=== PATIENT | male | born 1955 | race Caucasian/White ===

== ENCOUNTER 2018-06-07 04:48 | Inpatient (IN) | payer OTHER, SELFPAY ==
[2018-06-07] VITALS (20 sets, daily range): BP systolic 95–127; BP diastolic 67–89; PULSE 114–139; RESP 18–42; TEMP 36.4–37.7; O2SAT 93–98; BMI 31.0; BMI 29.9
--- NOTE | 2018-06-07 04:54 | EKG12_ITS ---
Test Reason : SEPSIS Blood Pressure : / mmHG Vent. Rate : 135 BPM Atrial Rate : 535 BPM P-R Int : 000 ms QRS Dur : 088 ms QT Int : 328 ms P-R-T Axes : 000 -02 -33 degrees QTc Int : 492 ms Atrial fibrillation with premature ventricular or aberrantly conducted complexes Nonspecific T wave abnormality Abnormal ECG Confirmed by VITA RAMIREZ, GERRY ([id number]), production editor ROSSANA ROB ([id number] on 06/10/2018 1:21:58 PM Referred By: CLIFFORD Confirmed By:GERRY GORMAN MD
--- NOTE | 2018-06-07 05:00 | RAD_ITS ---
STUDY: X-RAY - LEFT TIBIA AND FIBULA REASON FOR EXAM: Male, 63 years old. Lower leg infection and ulcerations. TECHNIQUE: AP and lateral view(s) of the tibia and fibula were obtained. COMPARISON: Prior comparison studies are not available for review at this time. FINDINGS: The distal tibia and fibula are not imaged in their entirety on two views. What is seen of the tibia has a grossly normal appearance with exception of osteopenia. The distal fibula is not imaged in its entirety in 2 views. The visualized fibula is osteopenic. There are multiple lucencies within the soft tissues of the mid and distal leg are presumably representing soft tissue infection ulcerations. There is a nodular area visible within the posterior distal leg measuring approximately 2.6 cm in size. RAD/Tibia & Fibula 2 Views IMPRESSION: 1. Osteopenia. 2. Diffuse soft tissue ulcerations of the mid and distal leg. 3. Nonspecific soft tissue nodule of the distal leg. Electronically Signed: Delilah Brady MD at 7:29 EDT , Service support ,
--- NOTE | 2018-06-07 05:00 | RAD_ITS ---
STUDY: X-RAY - RIGHT TIBIA AND FIBULA REASON FOR EXAM: Male, 63 years old. Right leg infection with soft tissue ulcerations. TECHNIQUE: 4 view(s) of the tibia and fibula were obtained. COMPARISON: None. FINDINGS: Normal visualized tibia. Normal visualized fibula. There is soft tissue swelling and emphysema within the anterior leg and at the ankle. This is presumably related to severe soft tissue infection and ulceration. RAD/Tibia & Fibula 2 Views IMPRESSION: Extensive soft tissue infection of the leg and ankle. Electronically Signed: Delilah Brady MD at 9:01 EDT , Service support ,
[2018-06-07] MEDS: 0.9% Normal Saline 1,000 ML 1000 ML IV (05:01)
--- NOTE | 2018-06-07 05:37 | NURSING ---
CRITICAL LACTIC OF 2.2
[2018-06-07 05:38] LABS: Absolute Lymphocyte Count 0.18 X10^3/ul (0.83-4.51); Absolute Neutrophil Count 10.2 X10^3/uL (2.0-7.7); Basophil# 0.01 X10^3/uL; Basophil% 0.1 % (0-1); Eosinophil# 0.01 X10^3/uL; Eosinophils% 0.1 % (0-5); Hematocrit 27.7 % (40-54); Hemoglobin 8.8 g/dl (13.0-16.5); Lactic Acid 2.2 mmol/L (0.4-2.0); Lymphocyte # 0.18 X10^3/ul (4.0); Lymphocyte % 1.7 % (19-41); Mean Corp Hgb Conc 31.8 g/gl (32-36); Mean Corpuscular Hgb 28.9 pg (27.0-32.0); Mean Corpuscular Volume 91.1 fL (80-94); Mean Platelet Vol. 11.3 fl (6.2-12.0); Monocyte% 1.9 % (0-10); Neutrophil # 10.18 X10^3/uL (2.7-7.7); Neutrophil % 95.9 % (47-70); Platelet Count 196 K/mm3 (150-450); RBC Distribution Width CV 19.7 % (11.6-14.6); RBC Distribution Width SD 65.7 fl (35.1-43.9); Red Blood Count 3.04 M/mm3 (4.6-6.2); White Blood Count 10.6 K/mm3 (4.4-11.0)
[2018-06-07 05:39] LABS: ALB/GLOB Ratio 0.4 RATIO (0.9-2.4); AST(SGOT) 23 U/L (15-37); Alanine Aminotransfer ALT/SGPT 17 U/L (16-61); Albumin, Serum 1.7 g/dL (3.2-5.0); Alkaline Phosphatase 285 U/L (45-117); Anion Gap 9 (5-15); BUN 31 mg/dL (7-18); BUN/Creat Ratio 26.7 RATIO (10-20); Calcium,Total 8.2 mg/dL (8.5-10.1); Chloride 102 mmol/L (98-107); Creatinine, Serum 1.16 mg/dL (0.70-1.30); EST Glomerular Filtration Rate 67 mL/min (>60); Est Glom Filt Rate - Afr Amer 81 mL/min (>60); Globulin 4.2 g/dL (2.2-4.2); Glucose 169 mg/dL (74-106); Potassium 4.3 mmol/L (3.5-5.1); Protein, Total 5.9 g/dL (6.4-8.2); Sodium Level 138 mmol/L (136-145)
[2018-06-07 05:48] LABS: Bacteria 0 SEEN /hpf (None Seen); Mucous, Urine 0 SEEN /hpf (<or=2+); Red Blood Cells-Urine 0 SEEN /hpf (0-5); Squamous Epithelial Cells - UA 0 SEEN /hpf (0-5); White Blood Cells 0 SEEN /hpf (0-5)
[2018-06-07 05:49] LABS: Color, Urine Amber (Yellow); Glucose, Dipstick Normal (Normal); Ketone-Dipstick Negative (Negative); Leukocyte Esterase-Dipstick 25 /ul (Negative); Nitrite-Dipstick Negative (Negative); Occult Blood-Urine Negative /ul (Negative); Protein-Dipstick 100 mg/dl (Negative); Specific Gravity, Urine 1.015 (1.002-1.030); Urine Clarity Clear (Clear); Urine Urobilinogen 12 mg/dl (Normal)
--- NOTE | 2018-06-07 05:50 | ED.RN ---
patient had a period of V tach on the monitor. Patient had no symptoms. Dr. De Souza made aware. no new orders at this time
[2018-06-07 05:56] LABS: POSITIVE COUNT NO; POSITIVE DIFFERENTIAL YES
[2018-06-07 05:57] LABS: Differential Indicated SCAN CRITERIA MET; POSITIVE MORPHOLOGY YES
[2018-06-07 06:00] LABS: Urine Bilirubin Dipstick 1 mg/dL (Negative)
[2018-06-07 06:04] LABS: International Normalized Ratio 3.4; Prothrombin Time (Protime)PT. 34.8 SECONDS (11.7-14.9)
--- NOTE | 2018-06-07 06:10 | RAD_ITS ---
STUDY: X-RAY CHEST REASON FOR EXAM: Male, 63 years old. Bilateral leg infection. TECHNIQUE: Single AP portable view of the chest. COMPARISON: None. FINDINGS: Cardiac monitoring leads are present. The lungs are expanded. There is no evidence for airspace disease. There is no demonstrated pleural abnormality. There is moderate cardiac enlargement. Normal mediastinum and clifford. Normal visualized pulmonary arteries. There is atherosclerotic calcification of the aortic arch with tortuosity. Normal visualized thoracic spine. There are degenerative changes of both shoulders. There is no demonstrated abnormality of the visualized soft tissue structures of the upper abdomen. RAD/Chest 1 View (Portable) IMPRESSION: Moderate cardiomegaly. Electronically Signed: Delilah Brady MD at 8:12 EDT , Service support ,
--- NOTE | 2018-06-07 06:10 | RAD_ITS ---
STUDY: X-RAY - RIGHT FOOT CLINICAL: Male, 63 years old. Right-sided foot soft tissue infection. TECHNIQUE: 3 view(s) of the foot. COMPARISON: Prior comparison studies are not available for review at this time. FINDINGS: There is a small plantar calcaneal spur. Normal visualized subtalar, talonavicular, calcaneocuboid, tarsal and tarsometatarsal articulations. Normal metatarsi. There is degenerative arthrosis of the metatarsophalangeal joint of the hallux . Normal tibial and fibular sesamoid bones. Normal interphalangeal joint of the great toe. Normal phalanges of the great toe. Normal second through fifth metatarsophalangeal joints. Normal interphalangeal joints and phalanges of the lesser toes. There is moderate soft tissue swelling of the foot and ankle. There is a lucency plantar to the metatarsophalangeal joint region suggesting ulceration. There may also be ulcerations posterior to the distal leg. There is no demonstrated fracture. RAD/Foot min 3 Views IMPRESSION: 1. Moderately severe soft tissue swelling. 2. Degenerative changes of the first metatarsal phalangeal joint. 3. Apparent ulcerations of the plantar foot and posterior leg. 4. Calcaneal spur. Electronically Signed: Delilah Brady MD at 7:32 EDT , Service support ,
[2018-06-07 06:14] LABS: Anisocytosis 2+; Differential Comment SCAN; Hypochromasia 1+; Microcytosis 1+; Ovalocyte 1+; Polychromasia 1+
--- NOTE | 2018-06-07 06:26 | ED.DCSUM_ITS ---
- ER Visit Summary Date of Service: 06/07/18 Chief Complaint: [Fever] History of Present Illness: The patient is a 63 M [presents to the emergency department with complaint of a fever that started 2 days ago from with the patient states however the states that it is actually started 6 days ago. Patient was noted to have what appear to be an infection of his right foot but the noticed 5 or 6 days ago. Patient has had open wounds to both lower extremities for months. Patient denies any cough or dysuria. states the patient really has not ambulated much in the last 2 weeks however yesterday he was able to shuffle a little bit transfer. Patient is on Coumadin for history of A. fib and history of prior stroke. Patient has a history of diabetes and hypertension.] Physical Examination: [HEENT-PERRLA, EOMI. Cranial nerves II through XII grossly intact. TMs clear. Mucous membranes moist. No adenopathy. Cardiovascular- irregularly irregular with 2 out of 6 systolic ejection murmur noted. Patient is tachycardic Lungs-clear to auscultation, chest wall stable without crepitus or subcu emphysema Abdomen-normoactive bowel sounds, soft, nontender, no rebound or rigidity, no peritoneal signs. Extremities-intact ?4, normal range of motion, normal pulses. Patient has soft tissue swelling and cellulitis noted to the right foot with multiple open wounds to the bottom of the foot. There is foul odor emanating from the wounds. Patient has significant ulcerations to both lower extremities below the knee. Test Results: [EKG obtained on arrival showed atrial fibrillation with a ventricular rate of 135 bpm. CBC with differential showed a white count 10.6, hemoglobin 8.8, hematocrit 27.7, platelets 196. Chemistries unremarkable. BUN was 31 creatinine 1.16. LFTs unremarkable. Troponin was less than 0.015. Lactate was minimally elevated 2.2. X-rays of bilateral tib fibs and right foot were obtained which showed soft tissue swelling of the foot however I do not appreciate any obvious osteomyelitis at this time and official report from radiology pending] Emergency Department Course and Treatment: [Patient was started on vancomycin as well as Zosyn IV. Patient was given a liter normal same fluid bolus.] Treatment Plan: [Admit] Disposition: [Admit] Impression: [Diabetic foot infection and cellulitis Sepsis syndrome Anemia Coumadin coagulopathy Atrial fibrillation with uncontrolled ventricular response] This note was generated with [employer] dictation software. It may contain incorrect words, spelling, and punctuation that were not noted in review of the chart prior to signing ED Disposition - Plan for ED Patient: Chief Complaint: Fever Referrals: Hong Sparks MD [Primary Care Provider] -
--- NOTE | 2018-06-07 06:42 | NURSING ---
NO LW OR POA
--- NOTE | 2018-06-07 06:42 | NURSING ---
128 ACUTE COPD EXAC AGYEPONG
--- NOTE | 2018-06-07 06:56 | NURSING ---
DR MIGUEL DALE
--- NOTE | 2018-06-07 07:03 | NURSING ---
PCU SEPSIS, AF WITH RVR, NON HEALING INFECTED WOUNDS SEMENTI
[2018-06-07 08:56] LABS: Bedside Glucose 136 mg/dL (70-110)
[2018-06-07 09:12] LABS: Reflex Lactate? Y
[2018-06-07 10:04] LABS: Lactic Acid 1.9 mmol/L (0.4-2.0)
[2018-06-07 11:30] LABS: Bedside Glucose 154 mg/dL (70-110)
--- NOTE | 2018-06-07 13:13 | VDLE_ITS ---
Reason For Study: swelling RIGHT LEFT GSV is normal. GSV is normal. CFV is compressible, spontaneous, competent CFV is compressible, spontaneous, competent, and demonstrates pulsatile venous flow. and demonstrates pulsatile venous flow. FV is compressible, spontaneous, competent FV is compressible, spontaneous, competent and demonstrates pulsatile venous flow. and demonstrates pulsatile venous flow. POP V is compressible with bright POP V is compressible, spontaneous, intraluminal echoes consistent with chronic competent and demonstrates pulsatile venous DVT. Pulsatile flow noted with a normal flow. response to augmentation. T/P Trunk is compressible. T/P Trunk is compressible with bright PTV is compressible. intraluminal echoes consistent with chronic LT PerV is compressible. DVT. PTV is compressible. RT PerV is compressible. Procedure Exam performed portable in patient room. The exam was diagnostic. Limited views of calf veins due to wounds. A preliminary report was called and/or faxed to Dr. Barnett. Interpretation Summary Deep veins of the lower extremities are bilaterally patent and compressible segmentally. There is no evidence of deep vein thrombosis on either side. Chronic venous changes are noted in the right popliteal vein and tibio-peroneal trunk. Valvular competence appears intact within the proximal deep venous systems bilaterally. The greater saphenous veins appear bilaterally patent and compressible segmentally. Pulsatile flow is noted within the deep venous system bilaterally, which may be indicative of elevated central venous pressure (i.e. congestive heart failure, tricuspid valve insufficiency, etc.). Clinical correlation is advised. Ordering Physician: Kallie Barnett Performed By: Diego Whalen RVT
--- NOTE | 2018-06-07 13:17 | ECHOD_ITS ---
Reason For Study: Murmur Procedure This was a 2D Doppler, Color Flow transthoracic echocardiogram. Exam performed portable in patient room. Left Ventricle Mildly dilated left ventricle. The estimated ejection fraction is 50 %. There is mild global hypokinesis of the left ventricle. Right Ventricle Moderately dilated right ventricle. Mild global right ventricular systolic dysfunction. Atria The left atrium is severely enlarged. The right atrium is severely enlarged. Normal atrial septum. Mitral Valve Mild focal mitral valve thickening. Moderately severe (3+) mitral valve insufficiency. Tricuspid Valve Normal tricuspid valve. Moderate (2+) tricuspid valve insufficiency. Right ventricular systolic pressure estimated to be 67 mmHg. Severe pulmonary hypertension. Aortic Valve Trisinus/trileaflet aortic valve. Mild diffuse aortic valve thickening. There is no aortic stenosis. Pulmonic Valve Normal pulmonic valve. Great Vessels Normal aortic root. Normal arch. The inferior vena cava is dilated. No collapse of the inferior vena cava. Pericardium/Pleural No pericardial effusion. MMode/2D Measurements & Calculations LVIDd: 5.3 cm IVSd: 1.3 cm Ao root diam: 3.8 cm LVIDs: 3.9 cm LVPWd: 1.3 cm RVDd: 5.0 cm FS: 26.0 % LAV(MOD-bp): 149.5 ml EDV(MOD-sp4): 87.2 ml SV(MOD-sp4): 46.8 ml LAV(MOD-bp) Indexed: 64.5 ml/m2 ESV(MOD-sp4): 40.4 ml LAV(MOD-sp2): 144.3 ml EF(MOD-sp4): 53.6 % LAV(MOD-sp4): 155.7 ml LA A4 area: 41.1 cm2 RA A4 area: 45.4 cm2 Doppler Measurements & Calculations MV E max dayanna: 98.6 cm/sec Ao V2 max: 120.3 cm/sec LV V1 max: 84.3 cm/sec Ao max P.8 mmHg LV V1 max P.8 mmHg Ao V2 mean: 87.3 cm/sec Ao mean P.4 mmHg Ao V2 VTI: 17.7 cm PA V2 max: 87.3 cm/sec TR max dayanna: 370.2 cm/sec TR max P.8 mmHg Interpretation Summary The estimated ejection fraction is 50 %. Mildly dilated left ventricle. There is mild global hypokinesis of the left ventricle. Moderately dilated right ventricle. Mild global right ventricular systolic dysfunction. The left atrium is severely enlarged. The right atrium is severely enlarged. Moderately severe (3+) mitral valve insufficiency. Moderate (2+) tricuspid valve insufficiency. Right ventricular systolic pressure estimated to be 67 mmHg. Severe pulmonary hypertension. The inferior vena cava is dilated Compared to echo report dated 05/08/2013, LV function is about the same and MR has gone from mild/moderate to moderate/severe. RVSP has incareased from 51 to 67 mm Hg. Pt appears to be in atrial fibrillation. Ordering Physician: Kallie Barnett Referring Physician: Hong Sparks Performed By: Sherri Faulkner, GIA, RVT
--- NOTE | 2018-06-07 13:24 | EKG12_ITS ---
Test Reason : MURMUR Blood Pressure : / mmHG Vent. Rate : 114 BPM Atrial Rate : 113 BPM P-R Int : 000 ms QRS Dur : 092 ms QT Int : 352 ms P-R-T Axes : 000 016 009 degrees QTc Int : 485 ms Atrial fibrillation Abnormal ECG When compared with ECG of 07-JUN-2018 05:04, MANUAL COMPARISON REQUIRED, DATA IS UNCONFIRMED Confirmed by VITA RAMIREZ, GERRY ([id number]), editorial director ROSSANA ROB ([id number]) on 06/10/2018 1:53:56 PM Referred By: MIGUEL Confirmed By:GERRY GORMAN MD
--- NOTE | 2018-06-07 13:39 | PCM.HP.STD ---
Problem List (1) Gangrene Status: Acute (2) Severe sepsis Status: Acute (3) Osteomyelitis Status: Suspected (4) PVD (peripheral vascular disease) Status: Suspected (5) Anemia Status: Chronic (6) Chronic anticoagulation Status: Chronic (7) Murmur, cardiac Status: Chronic (8) Cardiomyopathy Status: Chronic Comment: 47 % EF in 2013 (9) Pulmonary HTN Status: Chronic Comment: PA systolic 51 in 2013 (10) Tobacco dependence due to cigarettes Status: Chronic (11) Diabetic wet gangrene of the foot Status: Acute (12) HLD (hyperlipidemia) Status: Chronic (13) CVA, old, hemiparesis Status: Chronic Comment: left side weakness....stroke in 2013 (14) Benign essential HTN Status: Chronic (15) Chronic low back pain Status: Chronic (16) DM2 (diabetes mellitus, type 2) Status: Chronic (17) Depression Status: Chronic (18) Tobacco user Status: Chronic (19) BPH (benign prostatic hyperplasia) Status: Suspected (20) Urinary incontinence Status: Chronic History of Present Illness Date of Admission: 06/07/18 Chief Complaint: fould smelling ulcerations of both LE's with fever and shaking chills The patient is a 63 year old M with a past medical history of hypertension, diabetes mellitus type 2, hyperlipidemia, ischemic CVA in 2013, paroxysmal atrial fibrillation, tobacco dependence due to cigarettes, depression, claudication and chronic nonhealing wounds of both lower extremities who presented to the ED at [facility] on 06/07/18 c/o fever and shaking chills. He has non-healing ulcerations on both LE's with necrosis that have been present for month and extend from the knees to the toes on both feet. He has not been seen in the wound care center and is having his wounds dressed once a day at home by his using wound wash and triple antibiotic ointment. There is a very foul smell to the wounds and this has been present for at least a few weeks and maybe longer. He has never had PVR's. He is unable to walk and in fact the ankle joints are frozen. He also has openings in the skin on the buttocks. His temperature in the emergency room was 99.8?F but he had received Tylenol. The pulse was 135 and irregular, blood pressure was 107/76, respiratory rate was 25 is 93% saturated on room air. White blood cell count was 10.6 with 96% neutrophils. Hemoglobin is 8.8 with an MCV of 91.1 and a markedly increased RDW at 19.7 with anisocytosis, microcytosis and hypochromasia. Platelets were within normal limits. INR was therapeutic at 3.4. Electrolytes were normal and the BUN was 31 with a creatinine of 1.16. This is actually good for him. Lactic acid was 2.2 and the recheck was 1.9. Total bilirubin is increased at 1.5 and his alkaline phosphatase is increased at 285. Troponin was within normal limits. Albumin is decreased at 1.7. UA had 0 WBCs. Plain x-rays of bilateral distal lower extremities show extensive soft tissue infection of the legs and ankle with osteopenia. Chest x-ray showed cardiomegaly but it was an AP projection. There are no infiltrates, pleural effusions or pulmonary vascular congestion. An x-ray of the right foot showed moderately severe soft tissue swelling with apparent ulcerations of the plantar foot and posterior leg. There was a calcaneal spur. Blood cultures and a wound culture were sent from the emergency room. He was given Zosyn and Vancomycin. EKG shows AF with RVR and NS ST and T wave changes. He had a run of VT in the ED and also had a run on PCU.....he denies CP, SOB, palpitations, lightheadedness. Has not had any syncopal episodes. He is being admitted to PCU. Past Medical History Past Medical History (Chronic Problems): Chronic Problems 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) Ulcer of right foot with necrosis of muscle (Chronic) Osteomyelitis (Chronic) Right foot infection (Chronic) Type 2 diabetes mellitus with diabetic polyneuropathy (Chronic) Localized edema (Chronic) Malnutrition (Chronic) Tobacco user (Chronic) HLD (hyperlipidemia) (Chronic) DM2 (diabetes mellitus, type 2) (Chronic) Depression (Chronic) Chronic low back pain (Chronic) Benign essential HTN (Chronic) Allergies No Known Allergies Allergy (Verified 06/07/18 04:55) Home Medications: Ambulatory Orders Medication Instructions Recorded Amlodipine Besylate [Norvasc] 5 mg PO DAILY 06/07/18 Aspirin [Adult Aspirin] 81 mg PO DAILY 06/07/18 Atenolol 50 mg PO BID 06/07/18 Cholecalciferol (VIT D3) [Vitamin 1,000 unit PO DAILY 06/07/18 D] Fluocinonide [Fluocinonide] 1 applicatio TOPICAL BID 06/07/18 Furosemide [Lasix] 40 mg PO DAILY 06/07/18 Glimepiride [Amaryl] 4 mg PO DAILY 06/07/18 Lisinopril [Zestril] 40 mg PO DAILY 06/07/18 Metformin HCl 500 mg PO BIDCM 06/07/18 [place]-3 Fatty Acids/Fish Oil [Fish 1 each PO BID 06/07/18 Oil 1,000 mg Capsule] Paroxetine [Paxil] 40 mg PO DAILY 06/07/18 Simvastatin 20 mg PO QHS 06/07/18 Warfarin [Coumadin ([facility])] 5 mg PO SUTUWEFRSA 06/07/18 Warfarin [Coumadin ([facility])] 7.5 mg PO MOTH 06/07/18 Surgical History: tonsillectomy Psychiatric History: Depression Lives: Spouse/ Significant Other Smoking Status: Heavy Smoker (>10/day) - 1 pack per day Tobacco Use: Cigarettes Alcohol: Heavy - He admits to having 1 beer daily Drugs: None - *Family History Paternal History Items: Heart Disease - His father had atrial fibrillation and an AICD/pacemaker Maternal History Items: Diabetes - His mother had severe diabetes mellitus and had amputations of her lower extremities. Review of Systems Constitutional: Reports: Chills, Fever, - - unable to walk. Denies: Anorexia Eyes: Denies: Vision Change HEENT: Denies: Difficulty Hearing, Difficulty Swallowing, Head Aches, Sore Throat Cardiovascular: Reports: Claudication, Edema. Denies: Chest Pain, Light Headedness, Orthopnea, Palpitations, Syncope Respiratory: Denies: Cough, Shortness of Breath Gastrointestinal: Denies: Abdominal Pain, Constipation, Diarrhea, Nausea, Vomiting Genitourinary: Reports: Hesitancy, Incontinence - occasional, Nocturia, Urgency. Denies: Dysuria, Hematuria Musculoskeletal: Reports: Back Pain, - - both LE's Skin: Reports: Wounds. Denies: Jaundice, Rash Neurological: Reports: Focal weakness - LUE > LLE, - - unable to ambulate for some time now......ankle joints are frozen. Denies: Change in Speech, Slurred speech, Confusion, Seizures Psychiatric: Reports: Depression Endocrine: Denies: Change in Body Habitus Hematologic/ Lymphatic: Reports: Easy Bruising VTE Information - Inpt Only VTE Present on Admission: No VTE Mechan Device Prophylaxis: None VTE Pharm Prophylaxis ordered?: No Reason prophylaxis not ordered:: Treatment Not Indicated - He has severe PVD with claudication and multiple necrotic wounds on both LE's He is on coumadin Patient Problems: Active and Suspected Problems Gangrene (Acute) Severe sepsis (Acute) Osteomyelitis (Suspected) PVD (peripheral vascular disease) (Suspected) 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) BPH (benign prostatic hyperplasia) (Suspected) - Physical Exam General: Alert, Oriented x3, Cooperative, No apparent distress, Well developed, Well nourished HEENT: Atraumatic, PERRLA, EOMI, Normocephalic Oral: No Gingival or Mucosal Lesions/ Ulcerations - tongue is coated white white brown furry, Dry Mucosa Neck: Supple, No JVD, Negative Carotid Bruits, No Nuchal Rigidity, Trachea Midline Lungs: Rhonchi - R base and R lateral chest. No rales and no wheezes Cardiovascular: Normal S1, Normal S2, Irregular Rate, Murmur - Systolic murmur at the left axillary area, No Gallop, Tachycardic Abdomen: Bowel Sounds Present, Soft, Non Tender, Non-Distended, - - penis is uncircumcised and there are no lesions of the glans no tinea cruris present Extremities: No cyanosis, Diminished Peripheral Pulses - no pulses could be palpated from the groin to the toes, Edema Skin: Ulcer/ Wound - extensive on Both LE's from the knees to the toes with foul smelling DC from the wounds on the R foot and necrotic tissue L posterior calf and several other places. He also has several stage 2 decubitus ulcers on the buttocks Neurological: Cranial nerves II-XII grossly intact, - - mild-moderate weakness of the LUE and mild decreased strength in the LLE Psych/Mental Status: Appropriate, Anxious Vital Signs Temp Pulse Resp BP Pulse Ox 98.3 F 125 H 18 98/67 96 06/07/18 08:09 06/07/18 11:00 06/07/18 08:09 06/07/18 08:09 06/07/18 08:09 Oxygen Flow Rate (L/min) 2 Oxygen Delivery Method Room Air Weight: 233 lb 7.512 oz Body Mass Index (BMI) 29.9 Intake and Output for Last 24 Hours 06/05/18 06/06/18 06/07/18 23:59 23:59 23:59 Intake Total 973 / 973 Output Total 200 / 200 Balance 773 / 773 Laboratory Tests Past 24 Hrs 06/07/18 09:30 Lactic Acid 1.9 POC Glucose 06/07/18 06/07/18 11:23 08:25 POC Glucose 154 H 136 H Assessment/Plan All Active Problems Gangrene (Acute) Severe sepsis (Acute) 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 Severe sepsis with cellulitis, abscess, gangrene and suspected osteomyelitis of the R foot - suspect an anaerobe 2. extensive wounds of both LE's with necrotic tissue posterior left distal LE. 3. Neuropathy 4. DM II 5. Suspect severe peripheral vascular disease 6. Anemia with increased RDW and normocytic indices possibly due to -chronic inflammation/infection 7. Atrial fibrillation with rapid ventricular response 8. Chronic anticoagulation with warfarin 9. Cardiac murmur in the left axillary area-suspect mitral regurgitation 10. Mild cardiomyopathy with a 47% ejection fraction in 2013 11. Moderate pulmonary hypertension with a PA systolic of 51 in 2013 12. Tobacco dependence 13. Hyperlipidemia 14. Remote CVA with mild left hemiparesis 15. Hypertension 16. Chronic low back pain 17. Depression 18. BPH 19. frozen joints BL ankle 20. Stage II decubitus ulcers on both buttocks Consult Dr. Escobar, Dr. Gruber and Dr. Ponce Increase Cardizem and start amiodarone 4 heart rate control. Would like to avoid increasing beta blockers due to suspected severe peripheral vascular disease All wounds were cultured and blood cultures have been sent Start vancomycin and Zosyn Check iron studies, B12, folate and reticulocyte count Smoking cessation counseling given-NicoDerm patch 21 mg daily Obtain PVRs both lower extremities MRI of both lower extremities from the knees to the toes Continue his home medications Consult wound care nurse for management of his wounds Obtain an echocardiogram I did apprise him of the possibility he may need amputations. Recently a nuclear pharmacologic stress test prior to any major surgeries Recheck lab in a.m. Code Visit Inpatient E&M: 43198 Init Hosp L3
[2018-06-07 13:59] LABS: Immature Platelet Fraction 6.2 % (1.0-7.9); RET-HE 24.7 pg (30-35)
[2018-06-07 14:05] LABS: Erythrocyte Sedimentation Rate 51 mm/hr (0-20)
[2018-06-07 14:11] LABS: Ferritin 295 ng/mL (26-388); Iron 18 ug/dL (65-175); Iron Binding Capacity,Total 169 ug/dL (250-450); Magnesium 1.4 mg/dL (1.6-2.6); PERCENT IRON SATURATION 10.7 % (15.0-55.0)
[2018-06-07] MEDS: 0.9% Normal Saline 1,000 ML 60 ML IV (14:11)
[2018-06-07 14:24] LABS: Hemoglobin A1c 6.7 % (4.2-6.3)
--- NOTE | 2018-06-07 14:26 | PCM.RX.CS ---
Consult Pharmacy has been consulted to manage selected antiobiotic: Vancomycin Type of Consult: New start Suspected Infection: Sepsis, Skin/Soft tissue Prior Doses of Antibiotics Received/Current Regimen: VANCOMYCIN 2000MG IV X1 IN ED 06/07 @0533 Labs: Sodium 138 mmol/L (136-145) 06/07/18 05:00 Potassium 4.3 mmol/L (3.5-5.1) 06/07/18 05:00 Chloride 102 mmol/L (98-107) 06/07/18 05:00 Carbon Dioxide 27.0 mmol/L (21.0-32.0) 06/07/18 05:00 Anion Gap 9 (5-15) 06/07/18 05:00 BUN 31 mg/dL (7-18) H 06/07/18 05:00 Creatinine 1.16 mg/dL (0.70-1.30) 06/07/18 05:00 Est GFR (MDRD) Af Amer 81 mL/min (>60) 06/07/18 05:00 Est GFR (MDRD) Non-Af 67 mL/min (>60) 06/07/18 05:00 BUN/Creatinine Ratio 26.7 RATIO (10-20) H 06/07/18 05:00 Glucose 169 mg/dL (74-106) H 06/07/18 05:00 Weight used for dosin kg Estimated Creatinine Clearance: 75ML/MIN Goal Trough: 15-20 mcg/mL Pharmacy Plan for Drug Dosing: PLAN/RECOMMENDATIONS 1. Vancomycin 1500mg IV Q12hrs to start 06/07 @1700 2. Trough scheduled for 06/08 @1630, prior to 4th total dose of vancomycin 3. Pharmacy Service will continue to monitor and adjust dosing as required.
[2018-06-07 14:44] LABS: Phosphorus 2.5 mg/dL (2.5-4.9); Thyroid Stim Hormone (TSH) 1.95 uIU/mL (0.358-3.74)
--- NOTE | 2018-06-07 15:28 | NURSING ---
wound photo: right foot
--- NOTE | 2018-06-07 15:28 | NURSING ---
wound photo: right anterior lower leg
--- NOTE | 2018-06-07 15:29 | NURSING ---
wound photo: left anterior lower leg
--- NOTE | 2018-06-07 15:30 | NURSING ---
wound photo: left posterior lower leg
--- NOTE | 2018-06-07 15:30 | NURSING ---
wound photo: right medial lower leg
--- NOTE | 2018-06-07 15:30 | NURSING ---
wound photo: bilateral buttocks
--- NOTE | 2018-06-07 15:31 | NURSING ---
wound photo: right knee
--- NOTE | 2018-06-07 16:57 | HP.PCM_ITS ---
Problem List (1) Ulcer of right lower extremity with fat layer exposed Status: Chronic (2) Ulcer of left lower extremity with fat layer exposed Status: Chronic (3) 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 (4) Ulcer of right foot with necrosis of muscle Status: Chronic (5) Osteomyelitis Status: Chronic (6) Right foot infection Status: Chronic (7) Type 2 diabetes mellitus with diabetic polyneuropathy Status: Chronic (8) Localized edema Status: Chronic (9) Chronic anticoagulation Status: Chronic (10) PVD (peripheral vascular disease) Status: Suspected (11) Tobacco user Status: Chronic (12) Malnutrition Status: Chronic History of Present Illness Date of Admission: 06/07/18 Chief Complaint: Leg and foot ulcers and right foot infection The patient is a 63 year old male was seen bedside for bilateral leg ulcers with right foot infection. The wound onset was 4 months ago with progressive deterioration of right foot the past several weeks. He developed an odor and worsening illness status this past week. He has been treating these wounds at home without seeing a physician or specialist. They cover the wounds with gauze and neosporin. .His pain is moderate. He had several studies performed today. Past Medical History Past Medical History (Chronic Problems): Chronic Problems Anemia (Chronic) Chronic anticoagulation (Chronic) Murmur, cardiac (Chronic) Cardiomyopathy (Chronic) 47 % EF in 2013 Pulmonary HTN (Chronic) PA systolic 51 in 2012 Tobacco dependence due to cigarettes (Chronic) CVA, old, hemiparesis (Chronic) left side weakness....stroke in 2013 Urinary incontinence (Chronic) Ulcer of right lower extremity with fat layer exposed (Chronic) Ulcer of left lower extremity with fat layer exposed (Chronic) 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) Ulcer of right foot with necrosis of muscle (Chronic) Osteomyelitis (Chronic) Right foot infection (Chronic) Type 2 diabetes mellitus with diabetic polyneuropathy (Chronic) Localized edema (Chronic) Malnutrition (Chronic) Tobacco user (Chronic) HLD (hyperlipidemia) (Chronic) DM2 (diabetes mellitus, type 2) (Chronic) Depression (Chronic) Chronic low back pain (Chronic) Benign essential HTN (Chronic) Allergies No Known Allergies Allergy (Verified 06/07/18 04:55) Home Medications: Ambulatory Orders Medication Instructions Recorded Amlodipine Besylate [Norvasc] 5 mg PO DAILY 06/07/18 Aspirin [Adult Aspirin] 81 mg PO DAILY 06/07/18 Atenolol 50 mg PO BID 06/07/18 Cholecalciferol (VIT D3) [Vitamin 1,000 unit PO DAILY 06/07/18 D] Fluocinonide [Fluocinonide] 1 applicatio TOPICAL BID 06/07/18 Furosemide [Lasix] 40 mg PO DAILY 06/07/18 Glimepiride [Amaryl] 4 mg PO DAILY 06/07/18 Lisinopril [Zestril] 40 mg PO DAILY 06/07/18 Metformin HCl 500 mg PO BIDCM 06/07/18 Himrod-3 Fatty Acids/Fish Oil [Fish 1 each PO BID 06/07/18 Oil 1,000 mg Capsule] Paroxetine [Paxil] 40 mg PO DAILY 06/07/18 Simvastatin 20 mg PO QHS 06/07/18 Warfarin [Coumadin ([facility])] 5 mg PO SUTUWEFRSA 06/07/18 Warfarin [Coumadin ([facility])] 7.5 mg PO MOTH 06/07/18 Surgical History: tonsillectomy Psychiatric History: Depression Lives: Spouse/ Significant Other Smoking Status: Heavy Smoker (>10/day) - 1 pack per day Tobacco Use: Cigarettes Alcohol: Heavy - He admits to having 1 beer daily Drugs: None - *Family History Paternal History Items: Heart Disease - His father had atrial fibrillation and an AICD/ pacemaker Maternal History Items: Diabetes - His mother had severe diabetes mellitus and had amputations of her lower extremities. Review of Systems Constitutional: Reports: Fever, Weakness, Fatigue. Denies: Chills HEENT: Denies: Difficulty Hearing Cardiovascular: Denies: Chest Pain, Claudication Gastrointestinal: Denies: Diarrhea, Nausea, Vomiting Musculoskeletal: Reports: Foot Pain - right. Denies: Leg Pain Skin: Reports: Skin Changes, Wounds Neurological: Reports: Balance problems, Numbness, Tingling Psychiatric: Reports: Depression VTE Information - Inpt Only VTE Present on Admission: No VTE Mechan Device Prophylaxis: None VTE Pharm Prophylaxis ordered?: No Reason prophylaxis not ordered:: Treatment Not Indicated Patient Problems: Active and Suspected Problems Gangrene (Acute) Severe sepsis (Acute) Osteomyelitis (Suspected) PVD (peripheral vascular disease) (Suspected) 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) BPH (benign prostatic hyperplasia) (Suspected) - Physical Exam General: Alert, Oriented x3, Cooperative HEENT: Atraumatic Extremities: No cyanosis, Capillary Refill Less than 3 Seconds, No Calf Tenderness - Negative Errol and Lobato sign bilateral, Diminished Peripheral Pulses - Nonpalpable PT and DP pulses, Edema, Tenderness - Right foot wound manipulation plantar, - - Compartments of bilateral lower extremities remain soft Skin: Ulcer/ Wound - There is large subcutaneously exposed wounds to the left leg with posterior exposed Achilles just above the heel and mid leg section that is devitalized and necrotic. There is no purulence or odor on expression to the left lower extremity. The right lower extremity leg also has subcutaneous tissue exposed with granular and fibrous base with peripheral skin slough noted these are encompassing the entire lateral and anterior leg. His plantar right foot wound is located to the second toe with exposed flexor tendon and positive probe to bone and joint. There is also communicating subsecond metatarsal head ulcer with purulence on expression and devitalized necrotic plug noted. There is an odor and peripheral edema and erythema noted. , - - There is also a noninfected ulcer to the anterior right patellar region Musculoskeletal: No Tenderness to Palpation of Joints or Extremities, Muscle Wasting, - - Dorsal contraction of lesser toes with prominent metatarsal heads. Active range of motion ankles bilateral Neurological: - - Lack of epicritic sensation light touch bilateral lower extremities consistent with neuropathy Psych/Mental Status: Normal Affect, Appropriate Vital Signs Temp Pulse Resp BP Pulse Ox 98.7 F 120 H 28 H 105/67 94 06/07/18 14:36 06/07/18 14:45 06/07/18 14:45 06/07/18 14:45 06/07/18 14:45 Oxygen Flow Rate (L/min) 2 Oxygen Delivery Method Room Air Weight: 105.9 kg Body Mass Index (BMI) 29.9 Intake and Output for Last 24 Hours 06/05/18 06/06/18 06/07/18 23:59 23:59 23:59 Intake Total 973 / 973 Output Total 200 / 200 Balance 773 / 773 Laboratory Tests Past 24 Hrs 06/07/18 06/07/18 09:30 15:10 Lactic Acid 1.9 Vitamin B12 Pending POC Glucose 06/07/18 06/07/18 11:23 08:25 POC Glucose 154 H 136 H Assessment/Plan All Active Problems Gangrene (Acute) Severe sepsis (Acute) 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) Bilateral large leg wounds with subcutaneous tissue exposed right and subcutaneous and Achilles tendon exposed left Right foot ulcer with suspected septic joint and osteomyelitis Right lower extremity cellulitis Diabetes with neuropathy Malnutrition Peripheral vascular disease Lower extremity edema Delayed healing Multiple other comorbidities and risk for limb loss The case was discussed with the patient and his . I performed a physical exam and reviewed his diagnostic data. His foot x-rays did not demonstrate soft tissue emphysema, gross destruction of the bones or foreign body. There was edema and ulcer visualization noted. His foot deformity including hammertoe were also apparent. MRIs were ordered to help delineate extent of bone or joint involvement on the right foot. This is clinically suspected. I recommend an infectious disease consultation. He will continue on IV antibiotics overnight; I recommend broad-spectrum coverage until the culture results come back a wound culture was already obtained and the results are pending screening for aerobic, anaerobic, and MRSA. He was started on vancomycin and zosyn. He had a slight leukocytosis and elevated sedimentation rate of 51. He also had a noninvasive vascular studies performed with right naman 1.4 and left of 1.13 to the right and left limbs respectively. He has monophasic DP waveforms and there are no segmental pressures recorded proximal to the ankle level to evaluate for suspected blockage. His movement during the exam and a-fib have contributed to an incomplete study. I recommend a vascular surgery evaluation for further input. Devitalized subcutaneous and tendon tissue was removed to the plantar right foot (predebridement 1.3 x 1.8 x 1.1 cm, post debridement 1.5 x 2.3 x 1.3 cm) and posterior left ankle regions (predebridement of exposed tendon 3.1 x 2.7 x 0.2 cm, post debridement 3.6 x 3.2 x 0.3 cm) with a 15 blade and a pickup. Verbal consent was obtained and local anesthetic was not necessary due to neuropathy. Devitalized subcutaneous tissue and necrotic tendon, fibrous tissue , biofilm, and slough were excised. Pressure was applied to maintain hemostasis. He tolerated this well. The wound was packed with Betadine soaked gauze. Adaptic was applied to the leg wounds and further wrapped with gauze abdominal pads and Kerlix. He understands surgery to the right foot is likely and overall he is considered stable at this time. I would like to move forward with debridement and drainage within the next day and the MRI will also help delineate the extent of this procedure. He understands he is at risk for limb loss and his surgical intervention will likely be staged. Smoking cessation was advised. Medical management, DVT prophylaxis, and pain management per primary team is appreciated. It is noted he is not stable at this time and I appreciate the medical team pre procedure optimization and surgical screening. Thank you very much for the consultation please not hesitate to call if you have any questions. I answered all the patient's questions. Izzy Gruber DPM, [facility] [phone]
[2018-06-07] MEDS: Aspirin E.C. 81 MG Tablet PO (17:08)
[2018-06-07] MEDS: Docusate Sodium 100 MG Capsule PO (17:09)
[2018-06-07] MEDS: amLODIPine 5 MG Tablet PO (17:11)
[2018-06-07] MEDS: Atenolol 50 MG Tablet PO (17:12)
[2018-06-07] MEDS: Insulin Lispro 100 UNIT/ML INSULN.PEN SC ×2 (17:14→22:16)
[2018-06-07] MEDS: Piperacil/Tazobactam 3.375 GM/50 ML ML IV ×2 (17:15→22:16)
[2018-06-07] MEDS: Glimepiride 4 MG Tablet PO (17:16)
[2018-06-07 17:30] LABS: Bedside Glucose 222 mg/dL (70-110)
--- NOTE | 2018-06-07 17:45 | LEAS_ITS ---
Arterial Study - Arterial Study Arterial Study: This is a 63-year-old male with diminished pulses in the lower extremities and the presence of lower extremity wounds. Suspecting the presence of atherosclerotic peripheral arterial occlusive disease, the patient was brought to the noninvasive vascular laboratory at this time for the purpose of bilateral noninvasive lower extremity arterial assessment. Doppler signal assessment could not be performed due to rapid heart rate and atrial fibrillation. Segmental limb pressures were obtained at ankle level bilaterally. The right ankle pressure, as determined by posterior tibial pulse, was measured at 118 mmHg. The right ankle pressure, as determined by dorsalis pedis pulse, was measured at 161 mmHg. The left ankle pressure, as determined by posterior tibial pulse, was measured at 121 mmHg. The left ankle pressure, as determined by dorsalis pedis pulse, was measured at 130 mmHg. Pulse-volume recordings were obtained bilaterally and segmentally. Waveform amplitudes appeared to be satisfactory at low thigh, calf, and ankle levels bilaterally. Resting ankle-brachial indices were calculated bilaterally. The resting right ankle-brachial index was calculated to be 1.40. The resting left ankle- brachial index was calculated to be 1.13. Impression: Based upon the findings of this resting noninvasive lower extremity arterial study, there is no evidence of significant atherosclerotic peripheral arterial occlusive disease in the lower extremities bilaterally. Though Doppler signal assessment could not be performed due to the patient's rapid heart rate, resting ankle-brachial indices are bilaterally normal, suggesting relatively normal arterial perfusion at ankle level bilaterally.
--- NOTE | 2018-06-07 22:03 | NURSING ---
2200 dose of colace and atenolol held per scheduling guide window on 06/07/18
[2018-06-07] MEDS: Ascorbic Acid 500 MG Tablet PO (22:16)
[2018-06-07] MEDS: Tamsulosin HCl 0.4 MG Capsule PO (22:16)
[2018-06-07] MEDS: Atorvastatin Calcium 10 MG Tablet PO (22:16)
--- NOTE | 2018-06-07 22:22 | CON.PCM_ITS ---
Reason for Consult Date of Consultation: 06/07/18 Reason for Consultation: Preoperative evaluation History of Present Illness: The patient is a 63 year old M with a past medical history of hypertension, diabetes mellitus type 2, hyperlipidemia, ischemic CVA in 2012, paroxysmal atrial fibrillation, tobacco dependence due to cigarettes, depression, claudication and chronic nonhealing wounds of both lower extremities who presented to the ED at [facility] on 06/07/18 c/o fever and shaking chills. He has non- healing ulcerations on both LE's with necrosis that have been present for month and extend from the knees to the toes on both feet. His temperature in the emergency room was 99.8?F but he had received Tylenol. He denies any chest pain or shortness of breath or paroxysmal nocturnal dyspnea in the EKG during the workup he was noted to be anemic and also was noted to have atrial fibrillation with a rapid ventricular response rate. He also had a short run of a wide complex tachycardia. The above was asymptomatic. He is likely scheduled to undergo lower extremity surgery and cardiology was being called to assist in the management and risk stratification. Past Medical History Allergies/Adverse Reactions: Allergies No Known Allergies Allergy (Verified 06/07/18 04:55) Home Medications: Ambulatory Orders Medication Instructions Recorded Amlodipine Besylate [Norvasc] 5 mg PO DAILY 06/07/18 Aspirin [Adult Aspirin] 81 mg PO DAILY 06/07/18 Atenolol 50 mg PO BID 06/07/18 Cholecalciferol (VIT D3) [Vitamin 1,000 unit PO DAILY 06/07/18 D] Fluocinonide [Fluocinonide] 1 applicatio TOPICAL BID 06/07/18 Furosemide [Lasix] 40 mg PO DAILY 06/07/18 Glimepiride [Amaryl] 4 mg PO DAILY 06/07/18 Lisinopril [Zestril] 40 mg PO DAILY 06/07/18 Metformin HCl 500 mg PO BIDCM 06/07/18 Mcdonough-3 Fatty Acids/Fish Oil [Fish 1 each PO BID 06/07/18 Oil 1,000 mg Capsule] Paroxetine [Paxil] 40 mg PO DAILY 06/07/18 Simvastatin 20 mg PO QHS 06/07/18 Warfarin [Coumadin ([facility])] 5 mg PO SUTUWEFRSA 06/07/18 Warfarin [Coumadin ([facility])] 7.5 mg PO MOTH 06/07/18 Past Medical History (Chronic Problems): Chronic Problems 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) Ulcer of right foot with necrosis of muscle (Chronic) Osteomyelitis (Chronic) Right foot infection (Chronic) Type 2 diabetes mellitus with diabetic polyneuropathy (Chronic) Localized edema (Chronic) Malnutrition (Chronic) Tobacco user (Chronic) HLD (hyperlipidemia) (Chronic) DM2 (diabetes mellitus, type 2) (Chronic) Depression (Chronic) Chronic low back pain (Chronic) Benign essential HTN (Chronic) Surgical History: tonsillectomy Psychiatric History: Depression - *Family History Paternal History Items: Heart Disease - His father had atrial fibrillation and an AICD/ pacemaker Maternal History Items: Diabetes - His mother had severe diabetes mellitus and had amputations of her lower extremities. Lives: Spouse/ Significant Other Smoking Status: Heavy Smoker (>10/day) - 1 pack per day Tobacco Use: Cigarettes Alcohol: Heavy - He admits to having 1 beer daily Drugs: None Review of Systems - Review of Systems General: Denies: Fever, Night Sweats, Fatigue Cardiovascular: Denies: Chest Discomfort, Shortness of Breath, Orthopnea, PND, Peripheral Edema, Palpitations, Lightheadedness, Dizziness, Near Syncope, Syncope Respiratory: Denies: Cough, Sputum Production, Hemoptysis Gastrointestinal: Denies: Hematemesis, Hematochezia, Melena Genitourinary: Denies: Dysuria, Hematuria Muscoloskeletal: Reports: Foot Pain Skin: Denies: Rash Subjectve: Middle-aged man looks older than his stated age Objective: Vital Signs Temp Pulse Resp BP Pulse Ox 98.7 F 115 H 31 H 102/75 94 06/07/18 14:36 06/07/18 18:00 06/07/18 18:00 06/07/18 18:00 06/07/18 18:00 Oxygen Flow Rate (L/min) 2 Oxygen Delivery Method Room Air Weight: 233 lb 7.512 oz Body Mass Index (BMI) 29.9 Intake and Output for Last 24 Hours 06/05/18 06/06/18 06/07/18 23:59 23:59 23:59 Intake Total 3 / 2113 Output Total 650 / 650 Balance 1463 / 1463 General: Awake, Alert, Oriented x 3, Ill Appearing HEENT: PERRL, EOMI, Sclera Non Icteric Neck: Supple, Good ROM, No Lymph Node Enlargement Lungs: Clear to auscultation Cardiovascular: Irregular Rhythm, Normal S1, Normal S2, No Murmurs, No Rubs, No Gallops Vascular: No Carotid Bruits, Normal Femoral Pulses, Normal Radial Pulses, Normal Dorsalis Pedal Pulse, Normal Posterior Tibial Pulses Abdomen: Bowel Sounds Present, Soft, Non Tender, No HSM, No Organomegaly Extremities: No Cyanosis, No Clubbing, No edema, Bilateral Edema +2, - - Bandaged bilaterally Neurological: No Focal Motor or Sensory Deficit 06/07/18 09:30: Lactic Acid 1.9 Rhythm: EKG: Atrial fibrillation with a rapid ventricular response rate ECHO: Stress Test: Cardiac Cath: PCI: CT Surgery: Holter monitor: EPS: PPM: CXR: Chest CT Scan: Assessment/Plan 1. Preoperative cardiac assessment. He is a gentleman with significant coronary risk factors comprising of diabetes mellitus, hypertension, previous cerebrovascular accident or sedentary lifestyle. I will recommend that we obtain an echocardiogram as well as a pharmacologic myocardial perfusion stress test to help us risk stratify him for the possible intended lower extremity surgery. Overall this appears to be fairly low risk however. Further recommendations will depend on the results of the stress test. 2. Paroxysmal atrial fibrillation. He does have a history of paroxysmal atrial fibrillation. The plan at this time would be for him to continue rate control with the beta-dilia. I will suggest the addition of calcium channel dilia in addition to the amiodarone. The amiodarone hopefully can be tapered off within the next few hours. Due to the fact that he has not been anticoagulated I am hesitant to continue him on a antiarrhythmic. 3. Hypertension. His blood pressure does not appear to be very well controlled on the current medical therapy. I would suggest discontinuing the amlodipine and putting him on an non-dihydropyridine calcium channel dilia. This would help control his heart rate as well as his with his blood pressure. Thank you for allowing me to participate in the care of your patient. Please don't hesitate to call if any issues arise
[2018-06-07 22:36] LABS: Bedside Glucose 194 mg/dL (70-110)
[2018-06-08] VITALS (29 sets, daily range): BP systolic 108–137; BP diastolic 60–110; PULSE 90–125; RESP 12–34; TEMP 35.8–37.2; O2SAT 93–100
--- NOTE | 2018-06-08 00:05 | NURSING ---
Nicotine patch removed and discarded per protocol for stress test
--- NOTE | 2018-06-08 05:55 | EKG12_ITS ---
Test Reason : AM EKG Blood Pressure : / mmHG Vent. Rate : 128 BPM Atrial Rate : 125 BPM P-R Int : 000 ms QRS Dur : 094 ms QT Int : 348 ms P-R-T Axes : 000 009 021 degrees QTc Int : 508 ms Atrial fibrillation Abnormal ECG When compared with ECG of 07-JUN-2018 16:31, MANUAL COMPARISON REQUIRED, DATA IS UNCONFIRMED Confirmed by VITA RAMIREZ, GERRY ([id number]), editor managing newspaper ROSSANA ROB ([id number] on 06/10/2018 1:50:51 PM Referred By: MIGUEL Confirmed By:GERRY GORMAN MD
[2018-06-08 05:57] LABS: Anion Gap 11 (5-15); BUN 36 mg/dL (7-18); BUN/Creat Ratio 32.4 RATIO (10-20); Calcium,Total 8.3 mg/dL (8.5-10.1); Chloride 103 mmol/L (98-107); Cholesterol < 50 mg/dL (200); Creatinine, Serum 1.11 mg/dL (0.70-1.30); EST Glomerular Filtration Rate 71 mL/min (>60); Est Glom Filt Rate - Afr Amer 86 mL/min (>60); Estimated Creatinine Clearance 78.17 ml/min; Glucose 174 mg/dL (74-106); High Density Lipoprotein 21 mg/dL; Magnesium 1.7 mg/dL (1.6-2.6); Phosphorus 3.2 mg/dL (2.5-4.9); Potassium 4.2 mmol/L (3.5-5.1); Sodium Level 138 mmol/L (136-145); Triglycerides 74 mg/dL; Very Low Density Lipoprotein 15 mg/dL (5-40)
[2018-06-08 06:07] LABS: International Normalized Ratio 3.1; Prothrombin Time (Protime)PT. 32.5 SECONDS (11.7-14.9)
[2018-06-08 06:09] LABS: Partial Thromboplast Time 68.9 Seconds (24.1-36.2)
[2018-06-08] MEDS: Piperacil/Tazobactam 3.375 GM/50 ML ML IV ×3 (06:12→22:14)
[2018-06-08] MEDS: Aspirin E.C. 81 MG Tablet PO (06:14)
[2018-06-08] MEDS: Lisinopril 40 MG Tablet PO (06:14)
[2018-06-08 06:25] LABS: Absolute Lymphocyte Count 0.55 X10^3/ul (0.83-4.51); Absolute Neutrophil Count 10.1 X10^3/uL (2.0-7.7); Basophil# 0.01 X10^3/uL; Basophil% 0.1 % (0-1); Hematocrit 28.6 % (40-54); Hemoglobin 8.9 g/dl (13.0-16.5); Lymphocyte # 0.55 X10^3/ul (4.0); Lymphocyte % 4.7 % (19-41); Mean Corp Hgb Conc 31.1 g/gl (32-36); Mean Corpuscular Hgb 28.5 pg (27.0-32.0); Mean Corpuscular Volume 91.7 fL (80-94); Mean Platelet Vol. 11.6 fl (6.2-12.0); Monocyte# 0.95 X10^3/uL; Monocyte% 8.2 % (0-10); Neutrophil # 10.07 X10^3/uL (2.7-7.7); Neutrophil % 86.8 % (47-70); Platelet Count 219 K/mm3 (150-450); RBC Distribution Width CV 19.5 % (11.6-14.6); RBC Distribution Width SD 65.1 fl (35.1-43.9); Red Blood Count 3.12 M/mm3 (4.6-6.2); White Blood Count 11.6 K/mm3 (4.4-11.0)
[2018-06-08 06:27] LABS: Differential Indicated SCAN CRITERIA MET; POSITIVE COUNT NO; POSITIVE DIFFERENTIAL YES; POSITIVE MORPHOLOGY YES
[2018-06-08 06:51] LABS: Bedside Glucose 190 mg/dL (70-110)
[2018-06-08 07:18] LABS: Anisocytosis 2+; Differential Comment SCANNED
--- NOTE | 2018-06-08 08:15 | PN.CARD_ITS ---
Subjectve: Patient seen and evaluated. No cardiac complaints at this time. Objective: Vital Signs Temp Pulse Resp BP Pulse Ox 98.6 F 113 H 34 H 123/80 H 96 06/08/18 07:00 06/08/18 07:43 06/08/18 07:00 06/08/18 07:00 06/08/18 07:00 Oxygen Flow Rate (L/min) 2 Oxygen Delivery Method Nasal Cannula Weight: 233 lb 7.512 oz Body Mass Index (BMI) 29.9 Intake and Output for Last 24 Hours 06/06/18 06/07/18 06/08/18 23:59 23:59 23:59 Intake Total 2113 / 2113 989.3 / 989.3 Output Total 650 / 650 600 / 600 Balance 1463 / 1463 389.3 / 389.3 General: Awake, Alert, Oriented x 3 HEENT: PERRL, EOMI, Sclera Non Icteric Neck: Supple, Good ROM, No Lymph Node Enlargement Lungs: Clear to auscultation Cardiovascular: Regular Rhythm, Normal S1, Normal S2, No Murmurs, No Rubs, No Gallops Vascular: No Carotid Bruits, Normal Femoral Pulses, Normal Radial Pulses, Normal Dorsalis Pedal Pulse, Normal Posterior Tibial Pulses Abdomen: Bowel Sounds Present, Soft, Non Tender, No HSM, No Organomegaly Extremities: No Cyanosis, No Clubbing, No edema, Bilateral Edema +2 Neurological: No Focal Motor or Sensory Deficit 06/07/18 09:30: Lactic Acid 1.9 06/08/18 03:17: Troponin I < 0.015 06/08/18 05:04: WBC 11.6 H, RBC 3.12 L, Hgb 8.9 L, Hct 28.6 L, MCV 91.7, MCH 28.5, MCHC 31.1 L, RDW 19.5 H, RDW Differential 65.1 H, Plt Count 219, MPV 11.6 , Immature Gran % (Auto) 0.200, Neut % (Auto) 86.8 H, Lymph % (Auto) 4.7 L, [place] % (Auto) 8.2, Eos % (Auto) 0.0, Baso % (Auto) 0.1, Absolute Neuts (auto) 10.1 H, Total Counted Not Reportable 06/08/18 05:04: PT 32.5 H, INR 3.1 06/08/18 05:04: Sodium 138, Potassium 4.2, Chloride 103, Carbon Dioxide 24.0, Anion Gap 11, BUN 36 H, Creatinine 1.11, Est GFR (MDRD) Af Amer 86, Est GFR ( MDRD) Non-Af 71, BUN/Creatinine Ratio 32.4 H, Glucose 174 H, Calcium 8.3 L, Phosphorus 3.2, Magnesium 1.7, Triglycerides 74, Cholesterol < 50, LDL Cholesterol TNP, VLDL Cholesterol 15, HDL Cholesterol 21 L 06/08/18 05:04: APTT 68.9 H Rhythm: EKG: ECHO: Stress Test: Cardiac Cath: PCI: CT Surgery: Holter monitor: EPS: PPM: CXR: Chest CT Scan: Medical Necessity - Tobacco Use Smoking Status: Heavy Smoker (>10/day) - 1 pack per day Tobacco Use: Cigarettes Assessment/Plan 1. Preoperative cardiac assessment. He is a gentleman with significant coronary risk factors comprising of diabetes mellitus, hypertension, previous cerebrovascular accident or sedentary lifestyle. I will recommend that we obtain an echocardiogram as well as a pharmacologic myocardial perfusion stress test to help us risk stratify him for the possible intended lower extremity surgery. Overall this appears to be fairly low risk however. Further recommendations will depend on the results of the stress test. 2. Paroxysmal atrial fibrillation. He does have a history of paroxysmal atrial fibrillation. The plan at this time would be for him to continue rate control with the beta-dilia. I will suggest the addition of calcium channel dilia in addition to the amiodarone. After the current bag of amiodarone is finished I would not restart another one. Would prefer to rate control with the beta-dilia and the calcium channel dilia. 3. Hypertension. His blood pressure does not appear to be very well controlled on the current medical therapy. I would suggest discontinuing the amlodipine and putting him on an non-dihydropyridine calcium channel dilia. This would help control his heart rate as well as his with his blood pressure. Thank you for allowing me to participate in the care of your patient. Please don't hesitate to call if any issues arise
[2018-06-08 09:10] LABS: Vitamin B12 432 pg/mL (211-911)
--- NOTE | 2018-06-08 09:40 | CASEMGMT ---
Addendum entered by Stephanie Woodward 06/08/18 13:01: Pt still in the OR at this time. Will attempt later. Yadira MALCOLM CM Original Note: Pt already taken to OR for surgery at this time. This RN CM will attempt CM assessment later. Yadira MALCOLM CM
[2018-06-08] MEDS: Atenolol 50 MG Tablet PO ×2 (10:02→22:14)
[2018-06-08] MEDS: dilTIAZem CD 120 MG Capsule PO (10:03)
--- NOTE | 2018-06-08 10:51 | PCM.CONS.GEN ---
Problem List (1) Gangrene Status: Acute (2) Right foot infection Status: Chronic (3) Type 2 diabetes mellitus with diabetic polyneuropathy Status: Chronic (4) DM2 (diabetes mellitus, type 2) Status: Chronic Reason for Consult Date of Consultation: 06/08/18 History of Present Illness: The patient is a 63 year old M with a right foot wound. He has been dealing with this for a little over a month or so. He also has some calf wound secondary to venous hypertension. He has bilateral neuropathy developed wound on the plantar of the right foot which is worsened and clearly infected which brought him into the hospital. Here. He had PVRs that cannot get adequate duplex secondary to his A. fib but look like he had a normal DOROTHY down to the ankle. Difficult to assess if he has palpable pulses secondary to the swelling in the dressing at this point. But looking at the waveforms it looks like he has got normal flow into the feet. He probably will need a dedicated arterial duplex of that right side to better evaluate. Patient with no coronary intervention. Does have A. fib he is on Coumadin. Patient had stroke in 2011 secondary to the A. fib. He does have still some left hand left leg weakness. Patient still smokes. Hypertension on meds. He has been diabetic since around 2009. He is on a statin. He does still drag his left foot some with walking and limited walking noted. [] Past Medical History Past Medical History (Chronic Problems): Chronic Problems Anemia (Chronic) Chronic anticoagulation (Chronic) Murmur, cardiac (Chronic) Cardiomyopathy (Chronic) 47 % EF in 2012 Pulmonary HTN (Chronic) PA systolic 51 in 2012 Tobacco dependence due to cigarettes (Chronic) CVA, old, hemiparesis (Chronic) left side weakness....stroke in 2013 Urinary incontinence (Chronic) Ulcer of right lower extremity with fat layer exposed (Chronic) Ulcer of left lower extremity with fat layer exposed (Chronic) 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) Ulcer of right foot with necrosis of muscle (Chronic) Osteomyelitis (Chronic) Right foot infection (Chronic) Type 2 diabetes mellitus with diabetic polyneuropathy (Chronic) Localized edema (Chronic) Malnutrition (Chronic) Tobacco user (Chronic) HLD (hyperlipidemia) (Chronic) DM2 (diabetes mellitus, type 2) (Chronic) Depression (Chronic) Chronic low back pain (Chronic) Benign essential HTN (Chronic) Allergies No Known Allergies Allergy (Verified 06/07/18 04:55) Home Medications: Ambulatory Orders Medication Instructions Recorded Amlodipine Besylate [Norvasc] 5 mg PO DAILY 06/07/18 Aspirin [Adult Aspirin] 81 mg PO DAILY 06/07/18 Atenolol 50 mg PO BID 06/07/18 Cholecalciferol (VIT D3) [Vitamin 1,000 unit PO DAILY 06/07/18 D] Fluocinonide [Fluocinonide] 1 applicatio TOPICAL BID 06/07/18 Furosemide [Lasix] 40 mg PO DAILY 06/07/18 Glimepiride [Amaryl] 4 mg PO DAILY 06/07/18 Lisinopril [Zestril] 40 mg PO DAILY 06/07/18 Metformin HCl 500 mg PO BIDCM 06/07/18 [place]-3 Fatty Acids/Fish Oil [Fish 1 each PO BID 06/07/18 Oil 1,000 mg Capsule] Paroxetine [Paxil] 40 mg PO DAILY 06/07/18 Simvastatin 20 mg PO QHS 06/07/18 Warfarin [Coumadin ([facility])] 5 mg PO SUTUWEFRSA 06/07/18 Warfarin [Coumadin ([facility])] 7.5 mg PO MOTH 06/07/18 Surgical History: tonsillectomy Psychiatric History: Depression Lives: Spouse/ Significant Other Smoking Status: Heavy Smoker (>10/day) - 1 pack per day Tobacco Use: Cigarettes Alcohol: Heavy - He admits to having 1 beer daily Drugs: None - *Family History Paternal History Items: Heart Disease - His father had atrial fibrillation and an AICD/pacemaker Maternal History Items: Diabetes - His mother had severe diabetes mellitus and had amputations of her lower extremities. Patient Problems: Active and Suspected Problems Gangrene (Acute) Severe sepsis (Acute) Osteomyelitis (Suspected) PVD (peripheral vascular disease) (Suspected) 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) BPH (benign prostatic hyperplasia) (Suspected) - Physical Exam General: Alert, Oriented x3 HEENT: Atraumatic, PERRLA Oral: Moist Mucosa Neck: Supple, Negative Carotid Bruits Lungs: Clear to auscultation Cardiovascular: Irregular Rate Abdomen: Soft, Non Tender Extremities: - - Bilateral calf wounds. Appears large ulcer with drainage from the plantar of the right foot. Does have Refill noted. Significant edema into the feet and unable to appreciate pulses. The right worse than the left. Neurological: - - Left-sided weakness secondary to his previous stroke Vital Signs Temp Pulse Resp BP Pulse Ox 96.5 F L 125 H 27 H 117/81 H 93 06/08/18 10:00 06/08/18 10:00 06/08/18 10:00 06/08/18 10:00 06/08/18 10:00 Oxygen Flow Rate (L/min) 2 Oxygen Delivery Method Nasal Cannula Weight: 233 lb 7.512 oz Body Mass Index (BMI) 29.9 Intake and Output for Last 24 Hours 06/06/18 06/07/18 06/08/18 23:59 23:59 23:59 Intake Total 2113 / 2113 989.3 / 989.3 Output Total 650 / 650 600 / 600 Balance 1463 / 1463 389.3 / 389.3 Microbiology Past 72 Hours 06/07/18 12:50 Gram Stain - Final Wound Abcess - Right Foot Wound Culture - Preliminary Gram negative krystin Staphylococcus species Laboratory Tests Past 24 Hrs 06/07/18 06/08/18 06/08/18 15:10 03:17 05:04 WBC 11.6 H RBC 3.12 L Hgb 8.9 L Hct 28.6 L MCV 91.7 MCH 28.5 MCHC 31.1 L RDW 19.5 H RDW Differential 65.1 H Plt Count 219 MPV 11.6 Immature Gran % (Auto) 0.200 Neut % (Auto) 86.8 H Lymph % (Auto) 4.7 L [place] % (Auto) 8.2 Eos % (Auto) 0.0 Baso % (Auto) 0.1 Absolute Neuts (auto) 10.1 H Absolute Lymphs (auto) 0.55 L Total Counted Not Reportable Differential Comment SCANNED Anisocytosis 2+ PT INR APTT Sodium Potassium Chloride Carbon Dioxide Anion Gap BUN Creatinine Estim Creat Clear Calc Est GFR (MDRD) Af Amer Est GFR (MDRD) Non-Af BUN/Creatinine Ratio Glucose Calcium Phosphorus Magnesium Troponin I < 0.015 Triglycerides Cholesterol LDL Cholesterol VLDL Cholesterol HDL Cholesterol Vitamin B12 432 06/08/18 06/08/18 06/08/18 05:04 05:04 05:04 WBC RBC Hgb Hct MCV MCH MCHC RDW RDW Differential Plt Count MPV Immature Gran % (Auto) Neut % (Auto) Lymph % (Auto) [place] % (Auto) Eos % (Auto) Baso % (Auto) Absolute Neuts (auto) Absolute Lymphs (auto) Total Counted Differential Comment Anisocytosis PT 32.5 H INR 3.1 APTT 68.9 H Sodium 138 Potassium 4.2 Chloride 103 Carbon Dioxide 24.0 Anion Gap 11 BUN 36 H Creatinine 1.11 Estim Creat Clear Calc 78.17 Est GFR (MDRD) Af Amer 86 Est GFR (MDRD) Non-Af 71 BUN/Creatinine Ratio 32.4 H Glucose 174 H Calcium 8.3 L Phosphorus 3.2 Magnesium 1.7 Troponin I Triglycerides 74 Cholesterol < 50 LDL Cholesterol TNP VLDL Cholesterol 15 HDL Cholesterol 21 L Vitamin B12 06/08/18 06/08/18 05:04 08:45 WBC RBC Hgb Hct MCV MCH MCHC RDW RDW Differential Plt Count MPV Immature Gran % (Auto) Neut % (Auto) Lymph % (Auto) [place] % (Auto) Eos % (Auto) Baso % (Auto) Absolute Neuts (auto) Absolute Lymphs (auto) Total Counted Differential Comment Anisocytosis PT INR APTT Sodium Potassium Chloride Carbon Dioxide Anion Gap BUN Creatinine Estim Creat Clear Calc Est GFR (MDRD) Af Amer Est GFR (MDRD) Non-Af BUN/Creatinine Ratio Glucose Calcium Phosphorus Magnesium Troponin I Pending < 0.015 Triglycerides Cholesterol LDL Cholesterol VLDL Cholesterol HDL Cholesterol Vitamin B12 POC Glucose 06/08/18 06/07/18 06/07/18 06:48 22:14 17:06 POC Glucose 190 H 194 H 222 H 06/07/18 11:23 POC Glucose 154 H Assessment/Plan All Active Problems Gangrene (Acute) Severe sepsis (Acute) 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) #1. PAD. Appears he probably has adequate flow into his right foot. We will get a arterial duplex to better evaluate this. But I think he should have adequate flow if he ends up needing a toe amputation or further like a transmetatarsal amputation. We will follow along as needed. Thank you for the consult
--- NOTE | 2018-06-08 11:00 | RAD_ITS ---
STUDY: X-RAY - RIGHT FOOT CLINICAL: Male, 63 years old. Documentation of fluoroscopic radiation use during surgery. TECHNIQUE: 2 view(s) of the foot. COMPARISON: Preoperative radiographs of the right foot dated June 07, 2018. FINDINGS: Total exposure time: 0.06 seconds. Longest single exposure: 0.02 seconds Total DAP (cGy*cm2): 0.9701 Total Air Kerma (mGy): 0.0577 Patient apparently has had amputation of the distal second metatarsal and associated phalanges. Please see operative report for additional details. RAD/Foot 2 Views IMPRESSION: Documentation of fluoroscopic radiation during surgery. Electronically Signed: Delilah Brady MD at 7:53 EDT , Service support ,
[2018-06-08 11:41] LABS: Bedside Glucose 218 mg/dL (70-110)
--- NOTE | 2018-06-08 12:45 | BON_PTH ---
PATIENT: NORI POTTER LOC: [facility] U#:[id number] AGE/SX: 63/M ROOM: [facility] RE06/07/[address]: Dr. Nori Stearns DO : 1955 BED: 1 DIS: 06/14/2018 SPEC #: [id number] RECD: 06/13/18 09:27 STATUS: JOHNIE REQ #: [id number] ED: 06/08/18 12:[address]: Izzy Gruber DEPT: SURGICAL PATHOLOGY RECD BY: Aysha Piper ENTERED: 06/13/18 12:08 SP TYPE: Bone OTHR DR: MD Dr. Mando Villanueva MD Dr. Mary Catherine Sementi, DO Dr. Jeanna Fascione, DPM Dr. Mark Elderbrock, MD Dr. Mark Tereletsky, DO Dr. Franklyn Escobar MD Tissues: A - Bone of foot, NOS B - Vein, NOS Procedures: Decalcification bone/plaque Surgery Specimen Level IV Comments: @ Ordering doctor for DEC edited from to @ gem RUSH at 06/13/18 1600 @ Ordering doctor for SUIII edited from to @ gem RUSH at 06/13/18 1600 @ Submitting doctor edited from to @ gem RUSH at 06/13/18 1600 HEADER OPERATION: Right I & D bone and soft tissue, second ray resection, left leg debridement PRE-OP DIAGNOSIS: Infected right foot with osteomyelitis; infected left foot chronic leg wound TISSUE SUBMITTED: A ? Soft tissue and bone ? right foot, B ? Right leg vasculitis MICROSCOPIC DIAGNOSIS A. Soft tissue and bone right foot, amputation: Focal ulceration, acute and chronic inflammation, granulation tissue reaction and pseudo-epitheliomatous hyperplasia. Bone with mild chronic inflammation, negative for acute osteomyelitis. B. Right leg, punch biopsy: A piece of skin with ulceration with associated acute and chronic inflammation, granulation tissue reaction and reactive changes. See comment. SJ:enrrique 06/16/18 COMMENT B. Obvious neutrophilic vasculitis is not seen. MICROSCOPIC DESCRIPTION Slides are reviewed. GROSS DESCRIPTION A - Received in fixative is one container labeled with the patient's name and designated soft tissue and bone right foot. The specimen consists of a portion of foot containing a digit measuring 8 x 4.5 x 1.5 cm. The nails appear atrophic. The skin surface is rough and irregular. No obvious ulceration is identified. Also present in the container is a detached piece of bone with adherent soft tissue measuring 3 x 1.5 x 1 cm. Pack Room Operator sections are submitted in four cassettes as follows: 1 & 2 ? skin with underlying tissue, 3 ? detached piece of bone after decalcification. B - Received in fixative is one container labeled with the patient's name and designated right leg vasculitis. The specimen consists of a punch biopsy of iglesias-white skin measuring 0.2 cm in diameter and 0.3 cm in length. The entire specimen is submitted in one cassette. / SJ:enrrique 06/13/18 TC:2 CPT: 00248 x2, 06163
--- NOTE | 2018-06-08 12:45 | BON_PTH ---
PATIENT: NORI POTTER LOC: [facility] U#:[id number] AGE/SX: 63/M ROOM: [facility] RE06/07/[address]: Dr. Nori Stearns DO : 1955 BED: 1 DIS: 06/14/2018 SPEC #: [id number] RECD: 06/08/18 16:17 STATUS: JOHNIE REQ #: [id number] ED: 06/08/18 12:[address]: Izzy Gruber DEPT: SURGICAL PATHOLOGY RECD BY: Cristo Schuster ENTERED: 06/09/18 06:12 SP TYPE: Bone OTHR DR: MD Dr. Mando Villanueva MD Dr. Mary Catherine Sementi, DO Dr. Jeanna Fascione, DPM Dr. Mark Elderbrock, MD Dr. Robert Leininger, MD Tissues: Right foot Procedures: Decalcification bone/plaque Special Stain Group I Surgery Specimen Level IV AFB Stain (control) GMS Stain (control) Comments: @ Ordering doctor for DEC edited from to @ by ADRI at 06/09/18 1356 @ Ordering doctor for SUIV edited from to @ by ADRI at 06/09/18 1358 @ Submitting doctor edited from to DR.JFASCI Chiki RUSH at 06/09/18 1351 HEADER OPERATION: Right I & D bone and soft tissue, second ray resection, left leg debridement PRE-OP DIAGNOSIS: Infected right foot with osteomyelitis; infected left foot, chronic leg wound TISSUE SUBMITTED: Bone and soft tissue right foot MICROSCOPIC DIAGNOSIS Bone and soft tissue right foot, amputation: Focal ulceration, acute inflammation and abscess formation. Bone with acute osteomyelitis. Special stains for acid fast bacilli and fungi are negative for organisms; matched controls are appropriate. TC:enrrique 06/15/18 MICROSCOPIC DESCRIPTION Slides are reviewed. GROSS DESCRIPTION Received in fixative is one container labeled with the patient's name and designated soft tissue and bone right foot. The specimen consists of a portion of toe measuring 6.5 x 4 x 2 cm. The portion of the skin shows ulceration. This area is partly disrupted. Also present in the container is a detached piece of skin with underlying tissue measuring 3.5 x 1.5 x 0.5 cm. This piece also shows focal area of ulceration. The nail on the portion of the toe appears atrophic. Also present in the container are two pieces of detached bone measuring in aggregate 3 x 3 x 1.5 cm. Supervisor Offset Plate Preparation sections are submitted in three cassettes as follows: 1 ? ulcerated area, 2 & 3 ? bone after decalcification. / TC:enrrique 06/09/18 TC:2 CPT: 98145, 47379, 61379 x2
--- NOTE | 2018-06-08 13:46 | NURSING ---
Pt currently off unit for surgery.
--- NOTE | 2018-06-08 13:58 | RAD_ITS ---
STUDY: X-RAY - RIGHT FOOT CLINICAL: Male, 63 years old. Evaluate after surgical treatment of infection. TECHNIQUE: AP and lateral view(s) of the foot. COMPARISON: Radiographs of the right foot dated June 07, 2018. FINDINGS: Normal talus, calcaneus, and tarsal bones. There is a plantar calcaneal spur. The tarsal bones have a grossly normal appearance. The patient has had agitation of the distal second metatarsal. The third metatarsal appears to have had sequela of stress fracture. Fourth and fifth metatarsals are within normal limits. There is degenerative arthrosis of the metatarsophalangeal joint of the hallux . Normal tibial and fibular sesamoid bones. Normal interphalangeal joint of the great toe. Normal phalanges of the great toe. The patient has had amputation of phalanges of second toe. The phalanges of the third, fourth and fifth toes have a grossly normal appearance. There are mild degenerative changes of the IP joints. There is soft tissue swelling. There is soft tissue emphysema throughout the foot which may in part be related to surgery however, sequela of infection is also possible. RAD/Foot 2 Views IMPRESSION: 1. Status post amputation of the distal second metatarsal as well as the phalanges of second toe. 2. Diffuse soft tissue swelling and emphysema. 3. Calcaneal spur. 4. Degenerative changes of the toes. Electronically Signed: Delilah Brady MD at 7:29 EDT , Service support ,
[2018-06-08 14:16] LABS: Bedside Glucose 192 mg/dL (70-110)
--- NOTE | 2018-06-08 14:17 | PCM.IMDPSTOP ---
Problem List 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 (2) Ulcer of right foot with necrosis of muscle Status: Chronic (3) Osteomyelitis Status: Chronic (4) Right foot infection Status: Chronic (5) Type 2 diabetes mellitus with diabetic polyneuropathy Status: Chronic (6) Localized edema Status: Chronic (7) PVD (peripheral vascular disease) Status: Suspected (8) Tobacco user Status: Chronic Immediate Post-Op Note Date of Procedure: 06/08/18 Primary Surgeon/Physician: Izzy Gruber DPM applied marine physics professor: none Pre-Operative Diagnosis: Right second metatarsal phalangeal joint sepsis with osteomyelitis. Right foot cellulitis with abscess. Osteomyelitis right foot. Left leg ulcer with necrotic tendon Post-Operative Diagnosis: Right second metatarsal phalangeal joint sepsis with osteomyelitis. Right foot cellulitis with abscess. Osteomyelitis right foot. Left leg ulcer with necrotic tendon Surgery/Procedure Performed:: Incision and drainage right foot. Second ray resection, open. Debridement of left leg wound including devitalized tendon Description of Surgical Findings:: Hemostasis: Controlled Materials: iodoform, gelfoam Complications: None The patient tolerated the procedure and anesthesia well. He was transported to the PACU with vital signs stable and vascular status intact to bilateral lower extremities. Postoperative x-rays were obtained demonstrating second ray resection to the right foot. Specimens were sent as noted. Postoperative orders were entered electronically. Estimated Blood Loss: 300 mL Specimen's removed: 1. right foot soft tissue and bone sent to pathology. 2. deep right foot soft tissue sent to microbiology Type of Anesthesia:: General - Admit VTE Documentation VTE Present on Admission: No VTE Mechan Device Prophylaxis: None VTE Pharm Prophylaxis ordered?: Yes
--- NOTE | 2018-06-08 14:45 | PCM.OPRPT ---
Problem List 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 (2) Ulcer of right foot with necrosis of muscle Status: Chronic (3) Osteomyelitis Status: Chronic Qualifiers: Osteomyelitis location: foot Laterality: right (4) Right foot infection Status: Chronic (5) Type 2 diabetes mellitus with diabetic polyneuropathy Status: Chronic (6) Localized edema Status: Chronic (7) PVD (peripheral vascular disease) Status: Suspected (8) Tobacco user Status: Chronic Report of Operation Date of Procedure: 06/08/18 Pre-Operative Diagnosis: Right second metatarsal phalangeal joint sepsis with osteomyelitis. Right foot cellulitis with abscess. Osteomyelitis right foot. Left leg ulcer with necrotic tendon Post-Operative Diagnosis: Right second metatarsal phalangeal joint sepsis with osteomyelitis. Right foot cellulitis with abscess. Osteomyelitis right foot. Left leg ulcer with necrotic tendon Surgery/Procedure Performed:: Incision and drainage right foot. Second ray resection, open. 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 right foot soft tissue and bone sent to pathology. 2. deep right foot soft tissue sent to microbiology Estimated Blood Loss (mL): 300 mL Description of Procedure: Indications: This 63-year-old male with multiple comorbidities including congestive heart failure, anemia, diabetes with neuropathy, peripheral vascular disease, lower extremity edema, atrial fibrillation, cardiomyopathy, positive tobacco use continues to have chronic ulcers of both lower extremities. He also recently had a progressive right foot infection with worsening redness, odor, and swelling. His foot is now draining more. He was treating this at home with his with Neosporin and gauze. He was admitted yesterday for workup of this infection and systemic illness. He was started on IV vancomycin and Zosyn and Flagyl. He had foot x-rays which did not demonstrate fracture, dislocation, foreign body, soft tissue emphysema. Apparent edema and ulcer formation is noted. He did also have vascular studies however inaccuracy is suspected due to motion artifacts. He has nonpalpable pulses. He does have an ulcer subsecond metatarsal head and sub-second toe which probes to bone and joint with copious amounts of purulent drainage noted and interdigital maceration. There is a bulla formation to the plantar medial right arch with additional foul odor noted. Bilateral legs have large circumferential wounds noted with sub-hemorrhagic and subcutaneous exposed devitalized tissue. The left posterior leg also has proximal leg tendon Achilles that is devitalized and necrotic noted as well there is no gayatri purulence on expression to the left plantar heel ulcer or leg. He is demonstrating signs of medical instability likely secondary to his right foot infection I recommend going to the operating room immediately for this urgent situation. The indications, planned procedure, possible benefits, risks, complications, and anticipated healing time management were discussed in detail to patient. He understands and elects to proceed with surgery at this time. No guarantees were made. He understands complications and risks include but are not limited to the following: continued infection, delayed or non healing, scarring, swelling, pain, need for further surgery, amputation, loss of limb, function, life, blood clot, allergic reaction. He understands he is at risk for limb loss. This will likely be a staged procedure. The goal today is to eradicate the infection and allow drainage to occur. The case was reviewed with the anesthesia physician and hospitalist. It is noted he does have a planned lower extremity MRI and further cardiac workup however I do not recommend continued delay in surgical action. These things can be completed after his emergent drainage and debridement. He is NPO. Vascular surgery and infectious disease are also on the case and I reviewed his preoperative history and physical. Dr. Barnett who has also provided the preoperative optimization which is appreciated. I answered all his questions. Procedure in detail: The patient was transported to the operating room via cart and placed on the operating table in the supine position. Final verification of the patient, surgery, and limb designation was performed via the timeout procedure. A well-padded pneumatic right thigh tourniquet was placed. MAC anesthesia was transitioned into general anesthesia due to movements and inability to tolerate leg palpation. Local anesthetic was not administered locally due to the amount of cellulitis to the foot and ankle level. He continues on IV antibiotics as previously described. Bilateral lower extremities were prepped and draped in the usual aseptic manner and attention was first directed to the right foot. Penrose exsanguination was performed in the tourniquet was inflated. A fishmouth incision was made around the second toe and this was disarticulated and removed from the table. The plantar part of the incision was also extended to ellipse out the plantar subsecond metatarsal head ulcer and this incision was extended into the deep plantar central medial foot. Copious amounts of purulent drainage was expressed from the foot and noted to be in the compartment superficial and deep to the plantar fascia band and into the deep intrinsic musculature of the foot. The bulla to the plantar medial aspect of the foot was also incised and additional 200 mL of copious foul odorous drainage was expressed and Metzenbaum scissors were used to dissect the plane of this was traveling in which is the plantar foot abductor hallucis muscle belly this was tracked up to the flexor tendons including the posterior tibialis tendon in which purulence was not identified in this location. Copious amounts of normal saline was used to irrigate the wound with pulse lavage. New gloves instruments and drapery was applied. No additional purulence or odor was noted at this time and the wound was packed with deep iodoform packing and gauze. Gelfoam was also applied. Continueous hematogenous drainage was noted and it is noted his INR was about 3.1 at the time of the procedure. Pressure was applied to maintain hemostasis after the tourniquet was deflated prior to packing and electrocauterization was also used to control this. Any additional devitalized tendon was removed from the table. It is noted that the microbiology and pathology specimens were sent from the debrided tissue as described above and the results are pending. Attention was then directed to the left lower extremity in a 15 blade and pickup was used to removed devitalized necrotic liquefied tendon from the mid posterior leg. Pressure was applied to maintain hemostasis. Devitalized tendon, biofilm and slough was excisionally removed and the debrided tendon was measuring 2.8 x 2.8 cm and was approximately 0.5 cm thick. The decision was made not to perform bilateral leg versa jet debridement due to delayed clotting time with an INR of 3.1 in the large surface area of these wounds. His more critical issue of his right foot was the focus today and additional debridement of the legs will be considered when he is hemodynamically and medically stabilized. The legs were dressed with Adaptic, gauze, abdominal pads, Kerlix, and a Joao wrap applied in a noncompressive manner to bilateral lower extremities. A postoperative x-ray of the foot, 2 views, was obtained demonstrating adequate second ray resection with no other additional new acute injuries or foreign bodies. After procedure: The patient tolerated the procedure and anesthesia well. He was transported to PACU with vital signs stable and vascular status intact to bilateral lower extremities. It is noted that both his pulses are nonpalpable before the procedure and after the procedure. An intraoperative Doppler was used to try to find the PT artery of the right lower extremity and this was non-audible. He was advised to elevate his right lower extremity. He will be transferred back to the progressive care unit upon PACU stability. He is to remain nonweightbearing to the right lower extremity. He will continue on IV antibiotics and infectious disease will be consulted after his cultures demonstrate some results. He continues on vancomycin, Zosyn, and Flagyl at this time. To continue with proper glycemic control nutritional supplementation optimize healing. Vascular surgery is on consult and plans to do a duplex Doppler once he is more stable. Medical management, cardiac management, DVT prophylaxis and pain control per primary team is appreciated. I will continue to follow him close while in house. This is a planned stage procedure and he will go for additional debridement and irrigation versus other amputations or limb salvage if he demonstrates an appropriate initial response. All of his postoperative orders were entered electronically. Izzy Gruber DPM, [facility] - Admit VTE Documentation VTE Present on Admission: No
--- NOTE | 2018-06-08 15:53 | CASEMGMT ---
Pt just returned from OR at this time. This RN CM will see pt 06/09 am to better assess needs. SStaten RN CM
[2018-06-08] MEDS: Glimepiride 4 MG Tablet PO (16:05)
[2018-06-08 16:20] LABS: Bedside Glucose 152 mg/dL (70-110)
--- NOTE | 2018-06-08 16:26 | PCM.HP.ID ---
Problem List (1) Osteomyelitis Status: Suspected Reason for Consult: bacteremia Consulted by: Dr. Gruber History of Present Illness: The patient is a 63 year old M with PVD and leg ulcers for past several months who presented with one week of worsening R foot pain, ulcer, redness, and drainage. Had some associated fever and chills. No recent abx. Imaging showed R foot abscess, lactate was elevated, and bcx now with GNR on gram stain. On vanc/zosyn, taken to OR today for debridement. No pain in foot currently. - Medical History Past Medical History (Chronic Problems): Chronic Problems Anemia (Chronic) Chronic anticoagulation (Chronic) Murmur, cardiac (Chronic) Cardiomyopathy (Chronic) 47 % EF in 2012 Pulmonary HTN (Chronic) PA systolic 51 in 2012 Tobacco dependence due to cigarettes (Chronic) CVA, old, hemiparesis (Chronic) left side weakness....stroke in 2013 Urinary incontinence (Chronic) Ulcer of right lower extremity with fat layer exposed (Chronic) Ulcer of left lower extremity with fat layer exposed (Chronic) 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) Ulcer of right foot with necrosis of muscle (Chronic) Osteomyelitis (Chronic) Right foot infection (Chronic) Type 2 diabetes mellitus with diabetic polyneuropathy (Chronic) Localized edema (Chronic) Malnutrition (Chronic) Tobacco user (Chronic) HLD (hyperlipidemia) (Chronic) DM2 (diabetes mellitus, type 2) (Chronic) Depression (Chronic) Chronic low back pain (Chronic) Benign essential HTN (Chronic) Allergies/Adverse Reactions: Allergies No Known Allergies Allergy (Verified 06/07/18 04:55) Home Medications: Ambulatory Orders Medication Instructions Recorded Amlodipine Besylate [Norvasc] 5 mg PO DAILY 06/07/18 Aspirin [Adult Aspirin] 81 mg PO DAILY 06/07/18 Atenolol 50 mg PO BID 06/07/18 Cholecalciferol (VIT D3) [Vitamin 1,000 unit PO DAILY 06/07/18 D] Fluocinonide [Fluocinonide] 1 applicatio TOPICAL BID 06/07/18 Furosemide [Lasix] 40 mg PO DAILY 06/07/18 Glimepiride [Amaryl] 4 mg PO DAILY 06/07/18 Lisinopril [Zestril] 40 mg PO DAILY 06/07/18 Metformin HCl 500 mg PO BIDCM 06/07/18 [place]-3 Fatty Acids/Fish Oil [Fish 1 each PO BID 06/07/18 Oil 1,000 mg Capsule] Paroxetine [Paxil] 40 mg PO DAILY 06/07/18 Simvastatin 20 mg PO QHS 06/07/18 Warfarin [Coumadin ([facility])] 5 mg PO SUTUWEFRSA 06/07/18 Warfarin [Coumadin ([facility])] 7.5 mg PO MOTH 06/07/18 - Social History SMOKING STATUS:: Current every day smoker Vital Signs Temp Pulse Resp BP Pulse Ox 97.2 F L 94 22 H 108/70 96 06/08/18 15:45 06/08/18 15:45 06/08/18 15:45 06/08/18 15:45 06/08/18 15:45 Oxygen Flow Rate (L/min) 2 Oxygen Delivery Method Nasal Cannula Weight: 105.9 kg Body Mass Index (BMI) 29.9 Finger Stick Blood Glucose 192 Microbiology Past 72 Hours 06/07/18 12:50 Gram Stain - Final Wound Abcess - Right Foot Wound Culture - Preliminary Gram negative krystin Staphylococcus species Laboratory Tests Past 24 Hrs 06/07/18 06/08/18 06/08/18 15:10 03:17 05:04 WBC 11.6 H RBC 3.12 L Hgb 8.9 L Hct 28.6 L MCV 91.7 MCH 28.5 MCHC 31.1 L RDW 19.5 H RDW Differential 65.1 H Plt Count 219 MPV 11.6 Immature Gran % (Auto) 0.200 Neut % (Auto) 86.8 H Lymph % (Auto) 4.7 L [place] % (Auto) 8.2 Eos % (Auto) 0.0 Baso % (Auto) 0.1 Absolute Neuts (auto) 10.1 H Absolute Lymphs (auto) 0.55 L Total Counted Not Reportable Differential Comment SCANNED Anisocytosis 2+ PT INR APTT Sodium Potassium Chloride Carbon Dioxide Anion Gap BUN Creatinine Estim Creat Clear Calc Est GFR (MDRD) Af Amer Est GFR (MDRD) Non-Af BUN/Creatinine Ratio Glucose Calcium Phosphorus Magnesium Troponin I < 0.015 Triglycerides Cholesterol LDL Cholesterol VLDL Cholesterol HDL Cholesterol Vitamin B12 432 06/08/18 06/08/18 06/08/18 05:04 05:04 05:04 WBC RBC Hgb Hct MCV MCH MCHC RDW RDW Differential Plt Count MPV Immature Gran % (Auto) Neut % (Auto) Lymph % (Auto) [place] % (Auto) Eos % (Auto) Baso % (Auto) Absolute Neuts (auto) Absolute Lymphs (auto) Total Counted Differential Comment Anisocytosis PT 32.5 H INR 3.1 APTT 68.9 H Sodium 138 Potassium 4.2 Chloride 103 Carbon Dioxide 24.0 Anion Gap 11 BUN 36 H Creatinine 1.11 Estim Creat Clear Calc 78.17 Est GFR (MDRD) Af Amer 86 Est GFR (MDRD) Non-Af 71 BUN/Creatinine Ratio 32.4 H Glucose 174 H Calcium 8.3 L Phosphorus 3.2 Magnesium 1.7 Troponin I Triglycerides 74 Cholesterol < 50 LDL Cholesterol TNP VLDL Cholesterol 15 HDL Cholesterol 21 L Vitamin B12 06/08/18 06/08/18 05:04 08:45 WBC RBC Hgb Hct MCV MCH MCHC RDW RDW Differential Plt Count MPV Immature Gran % (Auto) Neut % (Auto) Lymph % (Auto) [place] % (Auto) Eos % (Auto) Baso % (Auto) Absolute Neuts (auto) Absolute Lymphs (auto) Total Counted Differential Comment Anisocytosis PT INR APTT Sodium Potassium Chloride Carbon Dioxide Anion Gap BUN Creatinine Estim Creat Clear Calc Est GFR (MDRD) Af Amer Est GFR (MDRD) Non-Af BUN/Creatinine Ratio Glucose Calcium Phosphorus Magnesium Troponin I < 0.015 < 0.015 Triglycerides Cholesterol LDL Cholesterol VLDL Cholesterol HDL Cholesterol Vitamin B12 - Other Studies Radiology: [] reviewed Other Studies: [] Route of nutrition/ use of supplements: [] Nutritional Intake: [] IV Site: [] Aponte Catheter: [] - Physical Exam General: Alert, Cooperative, No apparent distress HEENT: Atraumatic, PERRLA, EOMI Neck: Supple, No Nodes Lungs: Clear to auscultation, Normal air movement Cardiovascular: Regular rate, Irregular Rate Abdomen: Bowel Sounds Present, Soft, Non Tender, Non-Distended Skin: Incision - feet wrapped IV Site: Peripheral, without redness Musculoskeletal: No Tenderness to Palpation of Joints or Extremities Neurological: Cranial nerves II-XII grossly intact - Assessment/Plan Antibiotics: [] Assessment/Plan: [] Active and Suspected Problems Gangrene (Acute) Severe sepsis (Acute) Osteomyelitis (Suspected) PVD (peripheral vascular disease) (Suspected) 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 Gruber. Wound cxs with staph and GNR. Cont vanc/zosyn. Will follow, thank you.
[2018-06-08] MEDS: 0.9% Normal Saline 1,000 ML 60 ML IV (17:04)
[2018-06-08] MEDS: Tamsulosin HCl 0.4 MG Capsule PO (17:04)
[2018-06-08] MEDS: Ascorbic Acid 500 MG Tablet PO (17:04)
[2018-06-08] MEDS: Insulin Lispro 100 UNIT/ML INSULN.PEN SC (17:54)
[2018-06-08] MEDS: Docusate Sodium 100 MG Capsule PO (22:14)
[2018-06-08] MEDS: Atorvastatin Calcium 10 MG Tablet PO (22:14)
[2018-06-08] MEDS: dilTIAZem CD 180 MG Capsule PO (22:14)
[2018-06-08 22:26] LABS: Bedside Glucose 115 mg/dL (70-110)
[2018-06-08 22:44] LABS: Vancomycin, Trough Level 18.1 ug/mL (5.0-15.0)
[2018-06-09] VITALS (28 sets, daily range): BP systolic 83–128; BP diastolic 50–82; PULSE 85–106; RESP 20–28; TEMP 36.1–37.2; O2SAT 90–98
--- NOTE | 2018-06-09 00:51 | NURSING ---
Nicotine patch removed and discarded per stress test prep
[2018-06-09 04:14] LABS: Absolute Lymphocyte Count 0.58 X10^3/ul (0.83-4.51); Absolute Neutrophil Count 11.5 X10^3/uL (2.0-7.7); Basophil# 0.01 X10^3/uL; Basophil% 0.1 % (0-1); Eosinophil# 0.02 X10^3/uL; Eosinophils% 0.2 % (0-5); Hematocrit 26.2 % (40-54); Hemoglobin 8.2 g/dl (13.0-16.5); Lymphocyte # 0.58 X10^3/ul (4.0); Lymphocyte % 4.5 % (19-41); Mean Corp Hgb Conc 31.3 g/gl (32-36); Mean Corpuscular Hgb 28.5 pg (27.0-32.0); Mean Platelet Vol. 10.8 fl (6.2-12.0); Monocyte# 0.76 X10^3/uL; Monocyte% 5.9 % (0-10); Neutrophil # 11.49 X10^3/uL (2.7-7.7); Neutrophil % 89.1 % (47-70); Platelet Count 205 K/mm3 (150-450); RBC Distribution Width CV 19.6 % (11.6-14.6); RBC Distribution Width SD 65.3 fl (35.1-43.9); Red Blood Count 2.88 M/mm3 (4.6-6.2); White Blood Count 12.9 K/mm3 (4.4-11.0)
[2018-06-09 04:15] LABS: Differential Indicated SCAN CRITERIA MET; POSITIVE COUNT NO; POSITIVE DIFFERENTIAL YES; POSITIVE MORPHOLOGY YES; Partial Thromboplast Time 66.5 Seconds (24.1-36.2)
[2018-06-09 04:22] LABS: Prothrombin Time (Protime)PT. 37.4 SECONDS (11.7-14.9)
[2018-06-09 04:41] LABS: International Normalized Ratio 3.8
[2018-06-09 04:45] LABS: Anisocytosis 1+; Differential Comment SCAN
[2018-06-09 04:46] LABS: Hypochromasia 1+; Microcytosis 1+; Platelet Estimate ADEQUATE (ADEQ); Platelet Morphology LARGE; Polychromasia 1+
[2018-06-09 04:52] LABS: Anion Gap 10 (5-15); BUN 35 mg/dL (7-18); Calcium,Total 7.4 mg/dL (8.5-10.1); Chloride 107 mmol/L (98-107); Creatinine, Serum 1.03 mg/dL (0.70-1.30); EST Glomerular Filtration Rate 77 mL/min (>60); Est Glom Filt Rate - Afr Amer 93 mL/min (>60); Estimated Creatinine Clearance 84.24 ml/min; Glucose 128 mg/dL (74-106); Potassium 3.9 mmol/L (3.5-5.1); Sodium Level 141 mmol/L (136-145)
[2018-06-09] MEDS: Piperacil/Tazobactam 3.375 GM/50 ML ML IV ×3 (05:11→22:06)
[2018-06-09] MEDS: Aspirin E.C. 81 MG Tablet PO (05:12)
--- NOTE | 2018-06-09 05:55 | EKG12_ITS ---
Test Reason : AM EKG Blood Pressure : / mmHG Vent. Rate : 104 BPM Atrial Rate : 267 BPM P-R Int : 000 ms QRS Dur : 096 ms QT Int : 370 ms P-R-T Axes : 000 -08 044 degrees QTc Int : 486 ms Atrial fibrillation with premature ventricular or aberrantly conducted complexes Nonspecific ST and T wave abnormality Abnormal ECG When compared with ECG of 08-JUN-2018 05:24, MANUAL COMPARISON REQUIRED, DATA IS UNCONFIRMED Confirmed by ELGIN MONROY ([id number]), market editor ROSSANA ROB ([id number] on 06/14/2018 2:15:04 PM Referred By: MIGUEL Confirmed By:ELGIN MONROY
--- NOTE | 2018-06-09 07:00 | MRI_ITS ---
STUDY: MRI RIGHT MIDFOOT REASON FOR EXAM: Male, 63 years old. Necrotic wound. Evaluate osteomyelitis TECHNIQUE: Standardized fat and water weighted pulse sequences were obtained in all 3 orthogonal planes. COMPARISON: X-ray June 08, 2018. FINDINGS: There is postoperative change with amputation of the second digit at the mid metatarsal. There is wound with heterogeneous densities consistent with packing material. Wound is seen at the amputation site and extending along the plantar aspect to the medial side of the hindfoot. There is mild degenerative arthrosis of the talonavicular articulation. Normal calcaneocuboid articulation. Normal navicular-cuneiform articulations. There is mild degenerative arthrosis of the intercuneiform articulation. Normal first tarsometatarsal articulation. Normal Lisfranc ligament. Normal second and third tarsometatarsal articulations. Normal cuboid fourth and cuboid fifth tarsometatarsal articulation. Arthritic changes of the first metatarsophalangeal joint. There are cystic changes in the first metatarsal head and proximal phalanx. There is marrow edema of the distal stump of the second metatarsal, series 6 image 16/28. There is mild marrow edema of the third metatarsal head, series 6 image 12/28. Normal tibialis anterior tendon. Normal extensor hallucis longus tendon. Normal extensor digitorum longus tendons. Normal peroneus longus tendon and distal insertion. Normal peroneus brevis tendon and distal insertion. Edema of the visualized muscles of the mid foot region. MRI/Lower Ext/No Jt/w/o IMPRESSION: Postoperative changes with amputation of the second toe at the mid metatarsal. There is marrow edema with contiguous spread osteomyelitis of the shaft of the second metatarsal and the third metatarsal head. Large soft tissue wound extending to the hindfoot. Muscular edema. No abscess. Electronically Signed: Tony Paulino MD at 14:29 EDT , Service support ,
[2018-06-09 07:01] LABS: Bedside Glucose 145 mg/dL (70-110)
--- NOTE | 2018-06-09 07:39 | PCM.PN.CARD ---
Subjectve: Patient seen and evaluated. Appears to be doing well. Objective: Vital Signs Temp Pulse Resp BP Pulse Ox 98.6 F 100 24 H 95/67 96 06/09/18 07:00 06/09/18 07:00 06/09/18 07:00 06/09/18 07:00 06/09/18 07:00 Oxygen Flow Rate (L/min) 2 Oxygen Delivery Method Nasal Cannula Weight: 233 lb 7.512 oz Body Mass Index (BMI) 29.9 Finger Stick Blood Glucose 192 Intake and Output for Last 24 Hours 06/07/18 06/08/18 06/09/18 23:59 23:59 23:59 Intake Total 2113 / 2113 2639.3 / 2639.3 1691 / 1691 Output Total 650 / 650 1210 / 1210 550 / 550 Balance 1463 / 1463 1429.3 / 1429.3 1141 / 1141 General: Awake, Alert, Oriented x 3 HEENT: PERRL, EOMI, Sclera Non Icteric Neck: Supple, Good ROM, No Lymph Node Enlargement Lungs: Clear to auscultation Cardiovascular: Irregular Rhythm, Normal S1, Normal S2, No Murmurs, No Rubs, No Gallops Vascular: No Carotid Bruits, Normal Femoral Pulses, Normal Radial Pulses, Normal Dorsalis Pedal Pulse, Normal Posterior Tibial Pulses Abdomen: Bowel Sounds Present, Soft, Non Tender, No HSM, No Organomegaly Extremities: No Cyanosis, No Clubbing, Bilateral Edema +1, - - Bilateral leg ulcers Neurological: No Focal Motor or Sensory Deficit 06/08/18 05:04: Troponin I < 0.015 06/08/18 08:45: Troponin I < 0.015 06/09/18 03:34: PT 37.4 H, INR 3.8 H* 06/09/18 03:34: WBC 12.9 H, RBC 2.88 L, Hgb 8.2 L, Hct 26.2 L, MCV 91.0, MCH 28.5, MCHC 31.3 L, RDW 19.6 H, RDW Differential 65.3 H, Plt Count 205, MPV 10.8, Immature Gran % (Auto) 0.200, Neut % (Auto) 89.1 H, Lymph % (Auto) 4.5 L, [place] % (Auto) 5.9, Eos % (Auto) 0.2, Baso % (Auto) 0.1, Absolute Neuts (auto) 11.5 H, Total Counted Not Reportable 06/09/18 03:34: Sodium 141, Potassium 3.9, Chloride 107, Carbon Dioxide 24.0, Anion Gap 10, BUN 35 H, Creatinine 1.03, Est GFR (MDRD) Af Amer 93, Est GFR (MDRD) Non-Af 77, BUN/Creatinine Ratio 34.0 H, Glucose 128 H, Calcium 7.4 L 06/09/18 03:34: APTT 66.5 H Rhythm: EKG: ECHO: Stress Test: Cardiac Cath: PCI: CT Surgery: Holter monitor: EPS: PPM: CXR: Chest CT Scan: Medical Necessity - Tobacco Use Smoking Status: Heavy Smoker (>10/day) - 1 pack per day Tobacco Use: Cigarettes Assessment/Plan 1. Post operative cardiac assessment. He is a gentleman with significant coronary risk factors comprising of diabetes mellitus, hypertension, previous cerebrovascular accident or sedentary lifestyle. His echocardiogram demonstrated mild global left ventricular systolic dysfunction. His stress test was canceled because the operating room wanted him down there right away. He apparently did well. Postoperatively he has done well he remains in atrial fibrillation with nonspecific ST-T wave changes. He will continue the current medications that he is taking. 2. Paroxysmal atrial fibrillation. He does have a history of paroxysmal atrial fibrillation. The plan at this time would be for him to continue rate control with the beta-dilia. I will suggest the addition of calcium channel dilia in addition to the amiodarone. 3. Hypertension. His blood pressure appear to be very well controlled on the current medical therapy. He will continue with the current medical therapy. Thank you for allowing me to participate in the care of your patient. Please don't hesitate to call if any issues arise
--- NOTE | 2018-06-09 07:45 | PN.CARD_ITS ---
Subjectve: Patient seen and evaluated. Appears to be doing well. Objective: Vital Signs Temp Pulse Resp BP Pulse Ox 98.6 F 100 24 H 95/67 96 06/09/18 07:00 06/09/18 07:00 06/09/18 07:00 06/09/18 07:00 06/09/18 07:00 Oxygen Flow Rate (L/min) 2 Oxygen Delivery Method Nasal Cannula Weight: 233 lb 7.512 oz Body Mass Index (BMI) 29.9 Finger Stick Blood Glucose 192 Intake and Output for Last 24 Hours 06/07/18 06/08/18 06/09/18 23:59 23:59 23:59 Intake Total 2113 / 2113 2639.3 / 2639.3 1691 / 1691 Output Total 650 / 650 1210 / 1210 550 / 550 Balance 1463 / 1463 1429.3 / 1429.3 1141 / 1141 General: Awake, Alert, Oriented x 3 HEENT: PERRL, EOMI, Sclera Non Icteric Neck: Supple, Good ROM, No Lymph Node Enlargement Lungs: Clear to auscultation Cardiovascular: Irregular Rhythm, Normal S1, Normal S2, No Murmurs, No Rubs, No Gallops Vascular: No Carotid Bruits, Normal Femoral Pulses, Normal Radial Pulses, Normal Dorsalis Pedal Pulse, Normal Posterior Tibial Pulses Abdomen: Bowel Sounds Present, Soft, Non Tender, No HSM, No Organomegaly Extremities: No Cyanosis, No Clubbing, Bilateral Edema +1, - - Bilateral leg ulcers Neurological: No Focal Motor or Sensory Deficit 06/08/18 05:04: Troponin I < 0.015 06/08/18 08:45: Troponin I < 0.015 06/09/18 03:34: PT 37.4 H, INR 3.8 H* 06/09/18 03:34: WBC 12.9 H, RBC 2.88 L, Hgb 8.2 L, Hct 26.2 L, MCV 91.0, MCH 28.5, MCHC 31.3 L, RDW 19.6 H, RDW Differential 65.3 H, Plt Count 205, MPV 10.8 , Immature Gran % (Auto) 0.200, Neut % (Auto) 89.1 H, Lymph % (Auto) 4.5 L, L[place] % (Auto) 5.9, Eos % (Auto) 0.2, Baso % (Auto) 0.1, Absolute Neuts (auto) 11.5 H, Total Counted Not Reportable 06/09/18 03:34: Sodium 141, Potassium 3.9, Chloride 107, Carbon Dioxide 24.0, Anion Gap 10, BUN 35 H, Creatinine 1.03, Est GFR (MDRD) Af Amer 93, Est GFR ( MDRD) Non-Af 77, BUN/Creatinine Ratio 34.0 H, Glucose 128 H, Calcium 7.4 L 06/09/18 03:34: APTT 66.5 H Rhythm: EKG: ECHO: Stress Test: Cardiac Cath: PCI: CT Surgery: Holter monitor: EPS: PPM: CXR: Chest CT Scan: Medical Necessity - Tobacco Use Smoking Status: Heavy Smoker (>10/day) - 1 pack per day Tobacco Use: Cigarettes Assessment/Plan 1. Post operative cardiac assessment. He is a gentleman with significant coronary risk factors comprising of diabetes mellitus, hypertension, previous cerebrovascular accident or sedentary lifestyle. His echocardiogram demonstrated mild global left ventricular systolic dysfunction. His stress test was canceled because the operating room wanted him down there right away. He apparently did well. Postoperatively he has done well he remains in atrial fibrillation with nonspecific ST-T wave changes. He will continue the current medications that he is taking. 2. Paroxysmal atrial fibrillation. He does have a history of paroxysmal atrial fibrillation. The plan at this time would be for him to continue rate control with the beta-dilia. I will suggest the addition of calcium channel dilia in addition to the amiodarone. 3. Hypertension. His blood pressure appear to be very well controlled on the current medical therapy. He will continue with the current medical therapy. Thank you for allowing me to participate in the care of your patient. Please don't hesitate to call if any issues arise
[2018-06-09] MEDS: dilTIAZem CD 180 MG Capsule PO ×2 (08:34→22:08)
[2018-06-09] MEDS: Glimepiride 4 MG Tablet PO (08:34)
[2018-06-09] MEDS: Ascorbic Acid 500 MG Tablet PO ×2 (08:34→17:09)
[2018-06-09] MEDS: Docusate Sodium 100 MG Capsule PO ×2 (08:34→22:06)
[2018-06-09] MEDS: Atenolol 50 MG Tablet PO (08:35)
[2018-06-09 08:53] LABS: M R Staph aureus DNA By PCR Negative (Negative); Probe Check PASS; Specimen Processing Control PASS
--- NOTE | 2018-06-09 10:37 | PN_ITS ---
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 He was also evaluated for bilateral lower extremity wounds. He denies foot pain or leg pain while resting. She has pain when the wounds are manipulated touch. He denies fever, chill, nausea, vomiting. His is bedside. He is eager to return home. - Physical Exam General: Alert, Oriented x3, Cooperative Extremities: No cyanosis, Diminished Peripheral Pulses, Edema - mild bilateral lower extremites. edema to right foot decreased comparted to yesterday, - - Pain with calf wound manipulation and with right foot wound manipulation Skin: Ulcer/ Wound - Open second ray resection site incision and drainage his mainly hematogenous drainage on the packing. There is some serodevitalized fibrous drainage expressed from the deep arch of the foot on expression that is consistent with some lingering purulence. The tissue has improved healthy appearance however there still exists devitalized tissue encompassing approximately 30% of the wound. The right leg wounds have pale granular base with peripheral atrophic skin with skin peeling. The left leg is similar in appearance with the recently debrided posterior central necrotic tendinous plug now with some seropurulent loculation noted. After irrigation there was no longer any additional concerning immediate drainage. The left heel ulcer is fibrous and granular and does not probe to bone or undermine. Both of the leg wounds are several clusters and nearly incompetence a circumferential presentation. Musculoskeletal: No Tenderness to Palpation of Joints or Extremities, Muscle Wasting, - - Compartments looks lymph remain soft, bilateral. Improve ankle range of motion noted. Active range of motion toes noted. Neurological: - - Lack of epicritic sensation light touch bilateral lower extremities Psych/Mental Status: Normal Affect, Appropriate Vital Signs Temp Pulse Resp BP Pulse Ox 97.1 F L 96 20 H 87/59 L 93 06/09/18 10:00 06/09/18 10:00 06/09/18 10:00 06/09/18 10:00 06/09/18 10:00 Oxygen Flow Rate (L/min) 2 Oxygen Delivery Method Nasal Cannula Weight: 105.9 kg Body Mass Index (BMI) 29.9 Finger Stick Blood Glucose 192 Intake and Output for Last 24 Hours 06/07/18 06/08/18 06/09/18 23:59 23:59 23:59 Intake Total 2113 / 2113 2639.3 / 2639.3 1691 / 1691 Output Total 650 / 650 1210 / 1210 550 / 550 Balance 1463 / 1463 1429.3 / 1429.3 1141 / 1141 Microbiology Past 72 Hours 06/08/18 Unknown Wound Culture - Preliminary Wound - Other Gram negative krystin 06/07/18 12:50 Gram Stain - Final Wound Abcess - Right Foot Wound Culture - Final Proteus vulgaris Staphylococcus aureus Laboratory Tests Past 24 Hrs 06/08/18 06/08/18 06/09/18 05:04 16:34 03:34 WBC RBC Hgb Hct MCV MCH MCHC RDW RDW Differential Plt Count MPV Immature Gran % (Auto) Neut % (Auto) Lymph % (Auto) [place] % (Auto) Eos % (Auto) Baso % (Auto) Absolute Neuts (auto) Absolute Lymphs (auto) Total Counted Differential Comment Platelet Estimate Plt Morphology Comment Polychromasia Hypochromasia Anisocytosis Microcytosis PT 37.4 H INR 3.8 H* APTT Sodium Potassium Chloride Carbon Dioxide Anion Gap BUN Creatinine Estim Creat Clear Calc Est GFR (MDRD) Af Amer Est GFR (MDRD) Non-Af BUN/Creatinine Ratio Glucose Calcium Troponin I < 0.015 Vancomycin Trough 18.1 H MRSA (PCR) 06/09/18 06/09/18 06/09/18 03:34 03:34 03:34 WBC 12.9 H RBC 2.88 L Hgb 8.2 L Hct 26.2 L MCV 91.0 MCH 28.5 MCHC 31.3 L RDW 19.6 H RDW Differential 65.3 H Plt Count 205 MPV 10.8 Immature Gran % (Auto) 0.200 Neut % (Auto) 89.1 H Lymph % (Auto) 4.5 L [place] % (Auto) 5.9 Eos % (Auto) 0.2 Baso % (Auto) 0.1 Absolute Neuts (auto) 11.5 H Absolute Lymphs (auto) 0.58 L Total Counted Not Reportable Differential Comment SCAN Platelet Estimate ADEQUATE Plt Morphology Comment LARGE Polychromasia 1+ Hypochromasia 1+ Anisocytosis 1+ Microcytosis 1+ PT INR APTT Sodium 141 Potassium 3.9 Chloride 107 Carbon Dioxide 24.0 Anion Gap 10 BUN 35 H Creatinine 1.03 Estim Creat Clear Calc 84.24 Est GFR (MDRD) Af Amer 93 Est GFR (MDRD) Non-Af 77 BUN/Creatinine Ratio 34.0 H Glucose 128 H Calcium 7.4 L Troponin I Vancomycin Trough 21.0 H MRSA (PCR) 06/09/18 06/09/18 03:34 06:53 WBC RBC Hgb Hct MCV MCH MCHC RDW RDW Differential Plt Count MPV Immature Gran % (Auto) Neut % (Auto) Lymph % (Auto) [place] % (Auto) Eos % (Auto) Baso % (Auto) Absolute Neuts (auto) Absolute Lymphs (auto) Total Counted Differential Comment Platelet Estimate Plt Morphology Comment Polychromasia Hypochromasia Anisocytosis Microcytosis PT INR APTT 66.5 H Sodium Potassium Chloride Carbon Dioxide Anion Gap BUN Creatinine Estim Creat Clear Calc Est GFR (MDRD) Af Amer Est GFR (MDRD) Non-Af BUN/Creatinine Ratio Glucose Calcium Troponin I Vancomycin Trough MRSA (PCR) Negative POC Glucose 06/09/18 06/08/18 06/08/18 06:49 22:12 16:01 POC Glucose 145 H 115 H 152 H 06/08/18 06/08/18 13:55 11:35 POC Glucose 192 H 218 H Medical Necessity - Tobacco Use Smoking Status: Heavy Smoker (>10/day) - 1 pack per day Tobacco Use: Cigarettes Assessment/Plan All Active Problems Gangrene (Acute) Severe sepsis (Acute) 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) Bilateral large leg wounds with subcutaneous tissue exposed right and subcutaneous and Achilles tendon exposed left Right foot ulcer with septic joint and osteomyelitis; postoperative day #1 open second ray resection with widespread incision and drainage of the foot Right lower extremity cellulitis Left leg infection with loculated abscess to the posterior medial leg Diabetes with neuropathy Malnutrition Peripheral vascular disease Vasculitis / raynauds Connective tissue disorder suspected Lower extremity edema Delayed healing Multiple other comorbidities and risk for limb loss The case was discussed with the patient and his . Bilateral limbs were copiously irrigated with bulb syringe and 1 L of normal saline. Each of the wound sites were packed with Betadine soaked woven gauze, gauze, abdominal pads , Kerlix, Joao wrap. His postop x-rays were reviewed with status post second ray resection without acute injuries. Edema is also noted on x-ray. His intraoperative pathology and microbiology culture results are pending. So far there is gram-negative krystin growth. He continues on IV antibiotics and infectious disease consultation is greatly appreciated. He understands additional debridement and drainage and wound debridement to bilateral lower extremities is indicated during this hospital admission likely in within the next 2 days. Will continue to do bedside dressing irrigation changes. This is a planned stage procedure. He understands he is at risk for limb loss and his healing process will be complicated. MRIs will be completed later this morning and will be discussed upon completion; this will be used for further surgical planning. He also had a noninvasive vascular studies performed with right naman 1.4 and left of 1.13 to the right and left limbs respectively. He has monophasic DP waveforms and there are no segmental pressures recorded proximal to the ankle level to evaluate for suspected blockage. His movement during the exam and a- fib have contributed to an incomplete study. Vascular surgery consultation is appreciated and an arterial Doppler was recommended. He understands he is at risk for limb loss and his surgical intervention will be staged. Smoking cessation was advised. Medical management, DVT prophylaxis , and pain management per primary team is appreciated. Further connective tissue / rheumatologic disorder will be worked up at this time. This case was discussed with Dr. Barnett. Please do not hesitate to call if you have any questions. I will continue to follow him close while in house. Izzy Gruber DPM, [facility] [phone]
[2018-06-09] MEDS: 0.9% NaCl Peripheral Flush Adult/Peds IV (11:11)
[2018-06-09] MEDS: oxyCODONE 5 MG Tablet PO ×2 (11:11→17:11)
--- NOTE | 2018-06-09 11:18 | CASEMGMT ---
Face to Face with patient for initial transition planning/care coordination assessment. YUN WING introduced self and role at [facility], pt voices understanding and consents to assessment at this time. Pt is sitting up in bed at this time in no distress Pt is A/Ox4 at this time and answers all questions appropriately at this time. Care providers, pharmacy, and demographics verified. See attached link. Pt does not seem to grasp the extent of the infection at this time but his does and tries to re-iterate this to pt several times during assessment. This RN CM did broach the subject about plan for pt at discharge regarding infection to bilat legs s/p toe amputation . This RN MECCA discussed possible LTACH vs SNF vs C for wound care and possible iv antibx at discharge and advised pt/ that CM would continue to follow for all future discharge planning/needs, voice understanding. Pt voices no further concerns/needs at this time. Advised pt to ask for CM if any further questions/concerns/needs arise, voices understanding. PLAN: TBD [place] YUN WING
[2018-06-09 11:25] LABS: Bedside Glucose 331 mg/dL (70-110)
--- NOTE | 2018-06-09 11:40 | MRI_ITS ---
PROCEDURE: MRI LOWER EXTREMITY RIGHT TIBIA/FIBULA REASON FOR EXAM: Male, 63 years old. Necrotic wounds. TECHNIQUE: Standardized fat and water weighted pulse sequences were obtained in all 3 orthogonal planes. COMPARISON: None. FINDINGS: Normal tibia and fibula, without a periosteal, cortical or cancellous marrow abnormality. There is muscular edema of the anterior compartment. No fluid collection or abscess. There is subcutaneous edema. MRI/Lower Ext/No Jt/w/o IMPRESSION: No MRI evidence of osteomyelitis. Myositis with muscular edema. No fluid collection or abscess. Electronically Signed: Tony Paulino MD at 15:38 EDT , Service support ,
--- NOTE | 2018-06-09 11:40 | MRI_ITS ---
PROCEDURE: MRI LOWER EXTREMITY LEFT TIBIA/FIBULA REASON FOR EXAM: Male, 63 years old. Necrotic wounds. TECHNIQUE: Standardized fat and water weighted pulse sequences were obtained in all 3 orthogonal planes. COMPARISON: X-ray June 07, 2018. FINDINGS: Normal tibia and fibula, without a periosteal, cortical or cancellous marrow abnormality. Normal anterior, lateral, and posterior calf compartments, with normal muscles, crural fascia and intermuscular septa. There is soft tissue defect on the posterior medial aspect consistent with wound. There is adjacent 6.0 x 1.2 cm fluid collection with probable abscess, series 5 image 06/16. There is subcutaneous edema MRI/Lower Ext/No Jt/w/o IMPRESSION: No MRI evidence of osteomyelitis. Soft tissue wound with abscess. Electronically Signed: Tony Paulino MD at 15:45 EDT , Service support ,
--- NOTE | 2018-06-09 12:19 | NURSING ---
wound photo: right anterior lower leg
--- NOTE | 2018-06-09 12:20 | NURSING ---
wound photo: right foot
--- NOTE | 2018-06-09 12:20 | NURSING ---
wound photo: left posterior lower leg
[2018-06-09] MEDS: 0.9% Normal Saline 1,000 ML 60 ML IV (14:01)
--- NOTE | 2018-06-09 16:42 | PN.ID_ITS ---
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 No n/v/d. - Physical Exam General: Alert, Cooperative, No apparent distress Lungs: Clear to auscultation, Normal air movement Cardiovascular: Regular rate, Regular Rhythm Abdomen: Soft, Non Tender, Non-Distended Skin: Ulcer/ Wound - foot wrapped Vital Signs Temp Pulse Resp BP Pulse Ox 98.3 F 93 20 H 86/53 L 96 06/09/18 11:00 06/09/18 15:04 06/09/18 11:00 06/09/18 11:00 06/09/18 11:00 Oxygen Flow Rate (L/min) 2 Oxygen Delivery Method Nasal Cannula Weight: 105.9 kg Body Mass Index (BMI) 29.9 Finger Stick Blood Glucose 192 Intake and Output for Last 24 Hours 06/07/18 06/08/18 06/09/18 23:59 23:59 23:59 Intake Total 2113 / 2113 2639.3 / 2639.3 2609.8 / 2609.8 Output Total 650 / 650 1210 / 1210 800 / 800 Balance 1463 / 1463 1429.3 / 1429.3 1809.8 / 1809.8 Microbiology Past 72 Hours 06/08/18 Unknown Gram Stain - Final Wound - Other Wound Culture - Preliminary Gram negative krystin 06/07/18 12:50 Gram Stain - Final Wound Abcess - Right Foot Wound Culture - Final Proteus vulgaris Staphylococcus aureus Anaerobic Culture - Preliminary Presumptive B. fragilis group Laboratory Tests Past 24 Hrs 06/08/18 06/09/18 06/09/18 16:34 03:34 03:34 WBC RBC Hgb Hct MCV MCH MCHC RDW RDW Differential Plt Count MPV Immature Gran % (Auto) Neut % (Auto) Lymph % (Auto) [place] % (Auto) Eos % (Auto) Baso % (Auto) Absolute Neuts (auto) Absolute Lymphs (auto) Total Counted Differential Comment Platelet Estimate Plt Morphology Comment Polychromasia Hypochromasia Anisocytosis Microcytosis PT 37.4 H INR 3.8 H* APTT Sodium Potassium Chloride Carbon Dioxide Anion Gap BUN Creatinine Estim Creat Clear Calc Est GFR (MDRD) Af Amer Est GFR (MDRD) Non-Af BUN/Creatinine Ratio Glucose Calcium Vancomycin Trough 18.1 H 21.0 H MRSA (PCR) 06/09/18 06/09/18 06/09/18 03:34 03:34 03:34 WBC 12.9 H RBC 2.88 L Hgb 8.2 L Hct 26.2 L MCV 91.0 MCH 28.5 MCHC 31.3 L RDW 19.6 H RDW Differential 65.3 H Plt Count 205 MPV 10.8 Immature Gran % (Auto) 0.200 Neut % (Auto) 89.1 H Lymph % (Auto) 4.5 L [place] % (Auto) 5.9 Eos % (Auto) 0.2 Baso % (Auto) 0.1 Absolute Neuts (auto) 11.5 H Absolute Lymphs (auto) 0.58 L Total Counted Not Reportable Differential Comment SCAN Platelet Estimate ADEQUATE Plt Morphology Comment LARGE Polychromasia 1+ Hypochromasia 1+ Anisocytosis 1+ Microcytosis 1+ PT INR APTT 66.5 H Sodium 141 Potassium 3.9 Chloride 107 Carbon Dioxide 24.0 Anion Gap 10 BUN 35 H Creatinine 1.03 Estim Creat Clear Calc 84.24 Est GFR (MDRD) Af Amer 93 Est GFR (MDRD) Non-Af 77 BUN/Creatinine Ratio 34.0 H Glucose 128 H Calcium 7.4 L Vancomycin Trough MRSA (PCR) 06/09/18 06:53 WBC RBC Hgb Hct MCV MCH MCHC RDW RDW Differential Plt Count MPV Immature Gran % (Auto) Neut % (Auto) Lymph % (Auto) [place] % (Auto) Eos % (Auto) Baso % (Auto) Absolute Neuts (auto) Absolute Lymphs (auto) Total Counted Differential Comment Platelet Estimate Plt Morphology Comment Polychromasia Hypochromasia Anisocytosis Microcytosis PT INR APTT Sodium Potassium Chloride Carbon Dioxide Anion Gap BUN Creatinine Estim Creat Clear Calc Est GFR (MDRD) Af Amer Est GFR (MDRD) Non-Af BUN/Creatinine Ratio Glucose Calcium Vancomycin Trough MRSA (PCR) Negative POC Glucose 06/09/18 06/09/18 06/08/18 11:13 06:49 22:12 POC Glucose 331 H 145 H 115 H Medical Necessity - Tobacco Use Smoking Status: Heavy Smoker (>10/day) - 1 pack per day Tobacco Use: Cigarettes Route of nutrition/ use of supplements: [] Nutritional Intake: [] IV Site: [] [place]onte Catheter: [] - Assessment/Plan Antibiotics: [] Assessment/Plan: [] Active and Suspected Problems Gangrene (Acute) Severe sepsis (Acute) Osteomyelitis (Suspected) PVD (peripheral vascular disease) (Suspected) 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 Gruber. Wound cxs with staph and proteus. MRSA pcr neg. Will stop vanc, continue zosyn. Will follow
[2018-06-09 17:05] LABS: Bedside Glucose 217 mg/dL (70-110)
[2018-06-09] MEDS: Insulin Lispro 100 UNIT/ML INSULN.PEN SC ×2 (17:09→22:07)
[2018-06-09] MEDS: Tamsulosin HCl 0.4 MG Capsule PO (17:09)
--- NOTE | 2018-06-09 17:19 | PCM.PROGNOTE ---
Patient Problems: Active and Suspected Problems Gangrene (Acute) Severe sepsis (Acute) Osteomyelitis (Suspected) PVD (peripheral vascular disease) (Suspected) 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) BPH (benign prostatic hyperplasia) (Suspected) Subjective: Afebrile since admission heart rate is well controlled but he remains in atrial fibrillation with occasional short bursts of nonsustained ventricular tachycardia He is 93-96% saturated on a 2 L nasal cannula. Pain is not severe and he rarely needs and oxycodone. White blood cell count today is 12.9 with persistent left shift-89% neutrophils platelets are within normal limits and the hemoglobin is down to 8.2. His INR is supratherapeutic at 3.8 today. Calcium is 7.4 today and we do not have an albumin. BUN is 35 with a creatinine of 1.03. He denies SOB to me but he is sitting at about 45? in the bed and he is tachypneic with mild accessory muscle use. MICRO: 1 of 2 blood cultures is growing a gram-negative krystin which has not been identified yet. Wound culture from the right foot is growing Proteus vulgaris, methicillin sensitive staph aureus and another gram-positive coccus. There is presumptive B fragilis. The echocardiogram showed a mildly dilated left ventricle with a 50% ejection fraction, up from 47% on his echocardiogram in 2013. There was mild global hypokinesis of the left ventricle and a moderately dilated right ventricle. He has biatrial severe enlargement. There was severe +3 mitral valve insufficiency and 2+ tricuspid valve insufficiency. Right ventricular pressure is now estimated to be 67, up from 51 in 2013. The inferior vena cava is dilated. - Physical Exam General: Alert, Oriented x3, Cooperative, - - he is tachypneic and has mild accessory muscle use HEENT: Atraumatic, PERRLA, EOMI Oral: Moist Mucosa, No Gingival or Mucosal Lesions/ Ulcerations Neck: Supple, Trachea Midline Lungs: Clear to auscultation - anterior and lateral.....coarse crackles in the bases BL Cardiovascular: Normal S1, Normal S2, Irregular Rate - with controlled VR, Murmur - no change, No rub noted, No Gallop Abdomen: Bowel Sounds Present, Soft, Non Tender, Non-Distended Extremities: - - The dressing on the R foot is saturated with blood and Dr. Gruber is coming in to redress. while I was talking to him He had bone white patchy discoloration of the ring finger on the right hand that then spread to the other fingers. He admits to having his hands turn white when they get cold and they turn white. When his hands warm up they return to their normal color and the pain resolves Skin: No rashes - he has a butterfly rash on the face., - - now has an open draining wound mid Left calf. Musculoskeletal: Muscle Wasting - lower extremities Neurological: Cranial nerves II-XII grossly intact, Neuro grossly intact Psych/Mental Status: Appropriate, Flat Affect Vital Signs Temp Pulse Resp BP Pulse Ox 98.3 F 93 20 H 86/53 L 96 06/09/18 11:00 06/09/18 15:04 06/09/18 11:00 06/09/18 11:00 06/09/18 11:00 Oxygen Flow Rate (L/min) 2 Oxygen Delivery Method Nasal Cannula Weight: 233 lb 7.512 oz Body Mass Index (BMI) 29.9 Finger Stick Blood Glucose 192 Intake and Output for Last 24 Hours 06/07/18 06/08/18 06/09/18 23:59 23:59 23:59 Intake Total 2113 / 2113 2639.3 / 2639.3 2609.8 / 2609.8 Output Total 650 / 650 1210 / 1210 800 / 800 Balance 1463 / 1463 1429.3 / 1429.3 1809.8 / 1809.8 Microbiology Past 72 Hours 06/08/18 Unknown Gram Stain - Final Wound - Other Wound Culture - Preliminary Gram negative krystin 06/07/18 12:50 Gram Stain - Final Wound Abcess - Right Foot Wound Culture - Final Proteus vulgaris Staphylococcus aureus Anaerobic Culture - Preliminary Presumptive B. fragilis group Laboratory Tests Past 24 Hrs 06/08/18 06/09/18 06/09/18 16:34 03:34 03:34 WBC RBC Hgb Hct MCV MCH MCHC RDW RDW Differential Plt Count MPV Immature Gran % (Auto) Neut % (Auto) Lymph % (Auto) [place] % (Auto) Eos % (Auto) Baso % (Auto) Absolute Neuts (auto) Absolute Lymphs (auto) Total Counted Differential Comment Platelet Estimate Plt Morphology Comment Polychromasia Hypochromasia Anisocytosis Microcytosis PT 37.4 H INR 3.8 H* APTT Sodium Potassium Chloride Carbon Dioxide Anion Gap BUN Creatinine Estim Creat Clear Calc Est GFR (MDRD) Af Amer Est GFR (MDRD) Non-Af BUN/Creatinine Ratio Glucose Calcium Vancomycin Trough 18.1 H 21.0 H MRSA (PCR) 06/09/18 06/09/18 06/09/18 03:34 03:34 03:34 WBC 12.9 H RBC 2.88 L Hgb 8.2 L Hct 26.2 L MCV 91.0 MCH 28.5 MCHC 31.3 L RDW 19.6 H RDW Differential 65.3 H Plt Count 205 MPV 10.8 Immature Gran % (Auto) 0.200 Neut % (Auto) 89.1 H Lymph % (Auto) 4.[address] [place] % (Auto) 5.9 Eos % (Auto) 0.2 Baso % (Auto) 0.1 Absolute Neuts (auto) 11.5 H Absolute Lymphs (auto) 0.58 L Total Counted Not Reportable Differential Comment SCAN Platelet Estimate ADEQUATE Plt Morphology Comment LARGE Polychromasia 1+ Hypochromasia 1+ Anisocytosis 1+ Microcytosis 1+ PT INR APTT 66.5 H Sodium 141 Potassium 3.9 Chloride 107 Carbon Dioxide 24.0 Anion Gap 10 BUN 35 H Creatinine 1.03 Estim Creat Clear Calc 84.24 Est GFR (MDRD) Af Amer 93 Est GFR (MDRD) Non-Af 77 BUN/Creatinine Ratio 34.0 H Glucose 128 H Calcium 7.4 L Vancomycin Trough MRSA (PCR) 06/09/18 06:53 WBC RBC Hgb Hct MCV MCH MCHC RDW RDW Differential Plt Count MPV Immature Gran % (Auto) Neut % (Auto) Lymph % (Auto) [place] % (Auto) Eos % (Auto) Baso % (Auto) Absolute Neuts (auto) Absolute Lymphs (auto) Total Counted Differential Comment Platelet Estimate Plt Morphology Comment Polychromasia Hypochromasia Anisocytosis Microcytosis PT INR APTT Sodium Potassium Chloride Carbon Dioxide Anion Gap BUN Creatinine Estim Creat Clear Calc Est GFR (MDRD) Af Amer Est GFR (MDRD) Non-Af BUN/Creatinine Ratio Glucose Calcium Vancomycin Trough MRSA (PCR) Negative POC Glucose 06/09/18 06/09/18 06/09/18 17:03 11:13 06:49 POC Glucose 217 H 331 H 145 H 06/08/18 22:12 POC Glucose 115 H Medical Necessity - Tobacco Use Smoking Status: Heavy Smoker (>10/day) - 1 pack per day Tobacco Use: Cigarettes Assessment/Plan All Active Problems Gangrene (Acute) Severe sepsis (Acute) 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 Severe sepsis with cellulitis, abscess, gangrene and suspected osteomyelitis of the R foot - suspect an anaerobe 2. extensive wounds of both LE's with necrotic tissue posterior left distal LE. 3. Neuropathy 4. DM II 5. Suspect severe peripheral vascular disease 6. Anemia with increased RDW and normocytic indices possibly due to -chronic inflammation/infection 7. Atrial fibrillation with rapid ventricular response 8. Chronic anticoagulation with warfarin 9. Cardiac murmur in the left axillary area-suspect mitral regurgitation 10. 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 Pulmonary hypertension with a PA systolic estimated at 67, up from 51 and 2013 12. Tobacco dependence 13. Hyperlipidemia 14. Remote CVA with mild left hemiparesis 15. Hypertension 16. Chronic low back pain 17. Depression 18. BPH 19. frozen joints BL ankle 20. Stage II decubitus ulcers on both buttocks 21. abscess Left leg 22. Raynaud's, butterfly rash, BL knee pain with intermittent swelling and back pain.......mother had the rash and amputations also - suspect he may have an autoimmune disease with possible vasculitis 23. Supratherapeutic INR 24. Tachypnea, hypoxemia and accessory muscle use-patient is almost 5 L up since admission-check chest x-ray now 25. hypotension - 26. iron deficiency Continue Mami Gruber will take the patient to surgery tomorrow to I&D the left lower extremity abscess and clean up the right foot and irrigate. Check KEVIN, RA, HLA-B27, C3, C4 and CH 50. Check a anti-CCP. Repeat ESR and CRP. Type and screen for blood products. The foot is losing a lot of blood and he is supratherapeutic on his INR. 5 mg of p.o. vitamin K tonight Recheck the PT/INR early in the AM....would like the INR <2.4 to operate Hep-Lock IV fluids Decrease the atenolol to 25mg BID Start an iron supplement Code Visit Inpatient E&M: 11799 Subs Hosp L3
--- NOTE | 2018-06-09 17:27 | NURSING ---
VS late d/t pt being off unit @ MRI
--- NOTE | 2018-06-09 17:35 | RAD_ITS ---
STUDY: X-RAY CHEST REASON FOR EXAM: Male, 63 years old. Shortness of breath TECHNIQUE: Single AP portable view of the chest. COMPARISON: 06/07/2018 FINDINGS: The lungs are clear and expanded. There is no demonstrated pleural abnormality. There is moderate cardiac enlargement. Normal mediastinum and clifford. Normal visualized pulmonary arteries. Normal visualized aortic arch and descending thoracic aorta. Normal visualized thoracic spine. Normal visualized ribs, clavicles, and shoulders. There is no demonstrated abnormality of the visualized soft tissue structures of the upper abdomen. RAD/Chest 1 View (Portable) IMPRESSION: No change. No acute chest disease. Moderate cardiomegaly. Electronically Signed: Renny Henriquez MD at 20:57 EDT , Service support ,
--- NOTE | 2018-06-09 17:45 | NURSING ---
Dr. Gruber notified of saturated dressings, reinforced x1 per direction of wound RN. Dr Gruber to floor to change dressing. Applied gel foam, gauze sponzes to area actively bleeding. Applied kerlix and wrapped with MARIO wraps. Per MD, to go to surgery sometime Wednesday afternoon.
[2018-06-09 18:08] LABS: Erythrocyte Sedimentation Rate 45 mm/hr (0-20)
[2018-06-09 18:34] LABS: Rheumatoid Factor < 10.0 IU/mL (<15)
--- NOTE | 2018-06-09 19:24 | CON.PCM_ITS ---
Reason for Consult Date of Consultation: 06/09/18 Reason for Consultation: Nonhealing infected diabetic ulcers right anterior leg and left posterior leg. REFERRING PHYSICIAN: Dr. Barnett. AIR SAMPLING AND MONITORING: Dr. Adrian. History of Present Illness: The patient is a 63 year old M with history of diabetes mellitus presented to the ED with fever and shaking chills. He has large non-healing ulcerations on bilateral lower extremities with foul odor. He states they have been there for about a month but I suspect much longer. He states he is unable to walk and also multiple pressure sores involving his sacrum and bilateral ischial areas. X-rays of bilateral distal lower extremities show extensive soft tissue infection of the legs and ankle with osteopenia. An x-ray of the right foot showed moderately severe soft tissue swelling with apparent ulcerations of the plantar foot and posterior leg. There was a calcaneal spur. In the ED he was started on Zosyn and Vancomycin and is now just on Zosyn. Dr. Gruber was consulted who took him to surgery for I&D of right foot abscess. An MRI was done which showed a left posterior leg abscess. Dr. Gruber is planning on taking him to surgery tomorrow for further debridement. I was asked to evaluate this patient for surgical options for treatment for extensive reconstruction of his lower extremity ulcers with grafts and/or flaps or possible eventual amputations. Past Medical History Past Medical History (Chronic Problems): Chronic Problems Anemia (Chronic) Chronic anticoagulation (Chronic) Murmur, cardiac (Chronic) Cardiomyopathy (Chronic) 47 % EF in 2012 Pulmonary HTN (Chronic) PA systolic 51 in 2012 Tobacco dependence due to cigarettes (Chronic) CVA, old, hemiparesis (Chronic) left side weakness....stroke in 2013 Urinary incontinence (Chronic) Ulcer of right lower extremity with fat layer exposed (Chronic) Ulcer of left lower extremity with fat layer exposed (Chronic) 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) Ulcer of right foot with necrosis of muscle (Chronic) Osteomyelitis (Chronic) Right foot infection (Chronic) Type 2 diabetes mellitus with diabetic polyneuropathy (Chronic) Localized edema (Chronic) Malnutrition (Chronic) Tobacco user (Chronic) HLD (hyperlipidemia) (Chronic) DM2 (diabetes mellitus, type 2) (Chronic) Depression (Chronic) Chronic low back pain (Chronic) Benign essential HTN (Chronic) Allergies No Known Allergies Allergy (Verified 06/07/18 04:55) Current Medications Amiodarone HCl (Cordarone) 200 mg PO DAILY [facility] Ascorbic Acid (Vitamin C) 500 mg PO BIDCM [facility] Aspirin (Ecotrin) 81 mg PO DAILY [facility] Atenolol (Tenormin (Beta Mikie)) 25 mg PO BID [facility] Atorvastatin Calcium (Lipitor) 10 mg PO QHS [facility] Cholecalciferol (Vitamin D) 1,000 unit PO DAILY [facility] Diltiazem HCl (Cardizem Cd) 180 mg PO BID [facility] Docusate Sodium (Colace) 100 mg PO BID [facility] Glimepiride (Amaryl) 4 mg PO DAILYCM [facility] Piperacillin Sod/Tazobactam Sod (Zosyn) 3.375 gm in 50 mls @ 12.5 mls/hr IV Q8 [facility] Insulin Human Lispro (Humalog Kwikpen (Bkc)) 0 unit SC ACHS [facility] Lisinopril (Zestril) 40 mg PO DAILY [facility] Magnesium Hydroxide (Milk Of Magnesia) 30 ml PO DAILY PRN Nicotine (Nicoderm Cq (Pbkc)) 21 mg TRANSDERM. DAILY [facility] Nutritional Formula (Juan - Becker Flavor) 1 packet PO BIDCM [facility] Oxycodone HCl (Oxyir) 5 mg PO Q4H PRN Paroxetine HCl (Paxil) 40 mg PO DAILY [facility] Tamsulosin HCl (Flomax) 0.4 mg PO DAILY@1730 [facility] Zinc Sulfate (Zinc Sulfate) 220 mg PO DAILY [facility] Home Medications: Ambulatory Orders Medication Instructions Recorded Aspirin [Adult Aspirin] 81 mg PO DAILY 06/07/18 Atenolol 50 mg PO BID 06/07/18 Cholecalciferol (VIT D3) [Vitamin 1,000 unit PO DAILY 06/07/18 D3] Glimepiride [Amaryl] 4 mg PO DAILY 06/07/18 Lisinopril [Zestril] 40 mg PO DAILY 06/07/18 Paroxetine [Paxil] 40 mg PO DAILY 06/07/18 Simvastatin 20 mg PO QHS 06/07/18 Acetaminophen [Tylenol Tablet] 650 mg PO Q6H PRN PRN tablet 06/14/18 Amiodarone HCl [Cordarone] 200 mg PO DAILY tablet 06/14/18 Ampicillin/Sulbactam [Unasyn] 3 gm IV Q8 vial 06/14/18 Ascorbic Acid [Vitamin C] 500 mg PO BIDCM tablet 06/14/18 Collagenase [Santyl] 1 applic TOPICAL DAILY tube 06/14/18 Diltiazem CD [Cardizem CD] 120 mg PO BID capsule 06/14/18 Docusate Sodium [Colace] 100 mg PO BID capsule 06/14/18 Furosemide [Lasix] 40 mg PO TID #1 tablet 06/14/18 Heparin Injection (Vial) [Heparin 5,000 unit SC Q8 vial 06/14/18 Na] Insulin Glargine [Lantus SoloStar 10 units SC QHS pen 06/14/18 Pen] Insulin Lispro [Humalog KwikPen] See Protocol SC TIDAC insuln.pen 06/14/18 Ipratropium/Albuterol Sulfate 3 ml INHALATION Q4HWA.RT ampul.neb 06/14/18 [Duoneb] Mirtazapine [Remeron] 15 mg PO QHS tablet 06/14/18 Nutritional Supplement [Juan - 1 packet PO BIDCM packet 06/14/18 ORANGE FLAVOR] Potassium Chloride [K-Dur] 20 meq PO BIDCM tablet 06/14/18 Tamsulosin HCl [Flomax] 0.4 mg PO DAILY@1730 capsule 06/14/18 Zinc Sulfate (50mg elemental) 220 mg PO DAILY capsule 06/14/18 [Zinc Sulfate] Surgical History: tonsillectomy Psychiatric History: Depression Lives: Spouse/ Significant Other Smoking Status: Heavy Smoker (>10/day) - 1 pack per day Tobacco Use: Cigarettes Alcohol: Heavy - He admits to having 1 beer daily Drugs: None - *Family History Paternal History Items: Heart Disease - His father had atrial fibrillation and an AICD/ pacemaker Maternal History Items: Diabetes - His mother had severe diabetes mellitus and had amputations of her lower extremities. Review of Systems Comment: Constitutional: Reports: Chills, Fever, - - unable to walk. Denies: Anorexia. Eyes: Denies: Vision Change. HEENT: Denies: Difficulty Hearing, Difficulty Swallowing, Head Aches, Sore Throat. Cardiovascular: Reports: Claudication, Edema. Denies: Chest Pain, Light Headedness, Orthopnea, Palpitations, Syncope. Respiratory: Denies: Cough, Shortness of Breath. Gastrointestinal: Denies: Abdominal Pain, Constipation, Diarrhea, Nausea, Vomiting. Genitourinary: Reports: Hesitancy, Incontinence - occasional, Nocturia, Urgency. Denies: Dysuria, Hematuria. Musculoskeletal: Reports: Back Pain, - - both LE's. Skin: Has right foot abscess. Has nonhealing diabetic ulcers right anterior leg and left posterior leg. Neurological: Reports: Focal weakness - LUE > LLE, - - unable to ambulate for some time now......ankle joints are frozen. Denies: Change in Speech, Slurred speech, Confusion, Seizures. Psychiatric: Reports: Depression. Endocrine: Denies: Change in Body Habitus. Hematologic/ Lymphatic: Reports: Easy Bruising - Physical Exam General: Alert, Oriented x3. HEENT: PERRLA, EOMI. Oral: Dry Mucosa Neck: Supple, Nontender. No cervical adenopathy. Lungs: Rhonchi - right lung base. No wheezes. Cardiovascular: Irregular Rate. Abdomen: Soft, Non-Distended. Extremities: No cyanosis, Diminished Peripheral Pulses, Edema Skin: Ulcer/ Wound - has nonhealing ulcer right anterior leg with underlying pale granulation tissue and exudate. Scattered scabby scarring. Some nonviable tissue present. Measures 30 x 20 cm. Has a nonhealing ulcer left posterior leg with underlying pale granulation tissue and exudate. Scattered scabby scarring. Some nonviable necrotic tissue present. Measures 20 x 30 cm. He has bilateral ischial pressure sores with exposed deep dermis. No purulent drainage noted. At least a Stage II, but I suspect a Stage IV after excision. Right ischial pressure sore measures 2 x 2.5 cm. Left ischial pressure sore measures 1.5 x 1.5 cm. He has a sacral pressure sore cluster with exposed deep dermis. No purulent drainage noted. At least a Stage II, but I suspect a Stage IV after excision. Left sacral sore measures 1.5 x 1.5 cm. Right sacral sore measures 1.8 x 2.7 cm. Neurological: Cranial nerves II-XII grossly intact, - - mild-moderate weakness of the LUE and mild decreased strength in the LLE Psych/Mental Status: Appropriate, Anxious Vital Signs Temp Pulse Resp BP Pulse Ox 98.8 F 88 21 H 83/51 L 92 06/09/18 19:00 06/09/18 19:00 06/09/18 19:00 06/09/18 19:00 06/09/18 19:00 Oxygen Flow Rate (L/min) 2 Oxygen Delivery Method Nasal Cannula Weight: 233 lb 7.512 oz Body Mass Index (BMI) 29.9 Finger Stick Blood Glucose 192 Intake and Output for Last 24 Hours 06/07/18 06/08/18 06/09/18 23:59 23:59 23:59 Intake Total 2113 / 2113 2639.3 / 2639.3 3297.6 / 3297.6 Output Total 650 / 650 1210 / 1210 1000 / 1000 Balance 1463 / 1463 1429.3 / 1429.3 2297.6 / 2297.6 Microbiology Past 72 Hours 06/08/18 Unknown Gram Stain - Final Wound - Other Wound Culture - Preliminary Gram negative krystin 06/07/18 12:50 Gram Stain - Final Wound Abcess - Right Foot Wound Culture - Final Proteus vulgaris Staphylococcus aureus Anaerobic Culture - Preliminary Presumptive B. fragilis group Laboratory Tests Past 24 Hrs 06/08/18 06/09/18 06/09/18 16:34 03:34 03:34 WBC RBC Hgb Hct MCV MCH MCHC RDW RDW Differential Plt Count MPV Immature Gran % (Auto) Neut % (Auto) Lymph % (Auto) Ell[place] % (Auto) Eos % (Auto) Baso % (Auto) Absolute Neuts (auto) Absolute Lymphs (auto) Total Counted Differential Comment Platelet Estimate Plt Morphology Comment Polychromasia Hypochromasia Anisocytosis Microcytosis ESR PT 37.4 H INR 3.8 H* APTT Sodium Potassium Chloride Carbon Dioxide Anion Gap BUN Creatinine Estim Creat Clear Calc Est GFR (MDRD) Af Amer Est GFR (MDRD) Non-Af BUN/Creatinine Ratio Glucose Calcium C-React Prot Ext Range Vancomycin Trough 18.1 H 21.0 H Rheumatoid Factor Cycl Citrul Peptide IgG KEVIN Screen RIRI-1 Antibody SS-A/Ro IgG Antibody SS-B/La IgG Antibody Sm (Muhammad) Antibody FORCE DISPATCHER Antibody Scl-70 Scleroderma Ab Double Strand DNA Ab Centromere B Antibody Complement C3 Complement C4 Tot Complement (CH50) HLA-B27 MRSA (PCR) Blood Type Antibody Screen 06/09/18 06/09/18 06/09/18 03:34 03:34 03:34 WBC 12.9 H RBC 2.88 L Hgb 8.2 L Hct 26.2 L MCV 91.0 MCH 28.5 MCHC 31.3 L RDW 19.6 H RDW Differential 65.3 H Plt Count 205 MPV 10.8 Immature Gran % (Auto) 0.200 Neut % (Auto) 89.1 H Lymph % (Auto) 4.5 L Ellsworth % (Auto) 5.9 Eos % (Auto) 0.2 Baso % (Auto) 0.1 Absolute Neuts (auto) 11.5 H Absolute Lymphs (auto) 0.58 L Total Counted Not Reportable Differential Comment SCAN Platelet Estimate ADEQUATE Plt Morphology Comment LARGE Polychromasia 1+ Hypochromasia 1+ Anisocytosis 1+ Microcytosis 1+ ESR PT INR APTT 66.5 H Sodium 141 Potassium 3.9 Chloride 107 Carbon Dioxide 24.0 Anion Gap 10 BUN 35 H Creatinine 1.03 Estim Creat Clear Calc 84.24 Est GFR (MDRD) Af Amer 93 Est GFR (MDRD) Non-Af 77 BUN/Creatinine Ratio 34.0 H Glucose 128 H Calcium 7.4 L C-React Prot Ext Range Vancomycin Trough Rheumatoid Factor Cycl Citrul Peptide IgG KEVIN Screen RIRI-1 Antibody SS-A/Ro IgG Antibody SS-B/La IgG Antibody Sm (Muhammad) Antibody FORCE DISPATCHER Antibody Scl-70 Scleroderma Ab Double Strand DNA Ab Centromere B Antibody Complement C3 Complement C4 Tot Complement (CH50) HLA-B27 MRSA (PCR) Blood Type Antibody Screen 06/09/18 06/09/18 06/09/18 06:53 17:30 17:30 WBC RBC Hgb Hct MCV MCH MCHC RDW RDW Differential Plt Count MPV Immature Gran % (Auto) Neut % (Auto) Lymph % (Auto) Ellsworth % (Auto) Eos % (Auto) Baso % (Auto) Absolute Neuts (auto) Absolute Lymphs (auto) Total Counted Differential Comment Platelet Estimate Plt Morphology Comment Polychromasia Hypochromasia Anisocytosis Microcytosis ESR 45 H PT INR APTT Sodium Potassium Chloride Carbon Dioxide Anion Gap BUN Creatinine Estim Creat Clear Calc Est GFR (MDRD) Af Amer Est GFR (MDRD) Non-Af BUN/Creatinine Ratio Glucose Calcium C-React Prot Ext Range Vancomycin Trough Rheumatoid Factor Cycl Citrul Peptide IgG Pending KEVIN Screen RIRI-1 Antibody SS-A/Ro IgG Antibody SS-B/La IgG Antibody Sm (Muhammad) Antibody FORCE DISPATCHER Antibody Scl-70 Scleroderma Ab Double Strand DNA Ab Centromere B Antibody Complement C3 Complement C4 Tot Complement (CH50) HLA-B27 MRSA (PCR) Negative Blood Type Antibody Screen 06/09/18 06/09/18 06/09/18 17:30 17:32 17:32 WBC RBC Hgb Hct MCV MCH MCHC RDW RDW Differential Plt Count MPV Immature Gran % (Auto) Neut % (Auto) Lymph % (Auto) Ellsworth % (Auto) Eos % (Auto) Baso % (Auto) Absolute Neuts (auto) Absolute Lymphs (auto) Total Counted Differential Comment Platelet Estimate Plt Morphology Comment Polychromasia Hypochromasia Anisocytosis Microcytosis ESR PT INR APTT Sodium Potassium Chloride Carbon Dioxide Anion Gap BUN Creatinine Estim Creat Clear Calc Est GFR (MDRD) Af Amer Est GFR (MDRD) Non-Af BUN/Creatinine Ratio Glucose Calcium C-React Prot Ext Range 170.00 H Vancomycin Trough Rheumatoid Factor < 10.0 Cycl Citrul Peptide IgG KEVIN Screen Pending RIRI-1 Antibody Pending SS-A/Ro IgG Antibody Pending SS-B/La IgG Antibody Pending Sm (Muhammad) Antibody Pending FORCE DISPATCHER Antibody Pending Scl-70 Scleroderma Ab Pending Double Strand DNA Ab Pending Centromere B Antibody Pending Complement C3 Complement C4 Tot Complement (CH50) HLA-B27 MRSA (PCR) Blood Type Antibody Screen 06/09/18 06/09/18 17:32 17:32 WBC RBC Hgb Hct MCV MCH MCHC RDW RDW Differential Plt Count MPV Immature Gran % (Auto) Neut % (Auto) Lymph % (Auto) Ellsworth % (Auto) Eos % (Auto) Baso % (Auto) Absolute Neuts (auto) Absolute Lymphs (auto) Total Counted Differential Comment Platelet Estimate Plt Morphology Comment Polychromasia Hypochromasia Anisocytosis Microcytosis ESR PT INR APTT Sodium Potassium Chloride Carbon Dioxide Anion Gap BUN Creatinine Estim Creat Clear Calc Est GFR (MDRD) Af Amer Est GFR (MDRD) Non-Af BUN/Creatinine Ratio Glucose Calcium C-React Prot Ext Range Vancomycin Trough Rheumatoid Factor Cycl Citrul Peptide IgG KEVIN Screen RIRI-1 Antibody SS-A/Ro IgG Antibody SS-B/La IgG Antibody Sm (Muhammad) Antibody FORCE DISPATCHER Antibody Scl-70 Scleroderma Ab Double Strand DNA Ab Centromere B Antibody Complement C3 Pending Complement C4 Pending Tot Complement (CH50) Pending HLA-B27 Pending MRSA (PCR) Blood Type Pending Antibody Screen Pending POC Glucose 07/19/18 07/19/18 07/19/18 17:03 11:13 06:49 POC Glucose 217 H 331 H 145 H 06/08/18 22:12 POC Glucose 115 H Diagnostic Data Tibia/Fibula X-Ray 06/07/18 05:00 IMPRESSION: Extensive soft tissue infection of the leg and ankle. Electronically Signed: Delilah Brady MD at 9:01 EDT , Service support , MRI RIGHT MIDFOOT 06/09/18 07:00 IMPRESSION: Postoperative changes with amputation of the second toe at the mid metatarsal. There is marrow edema with contiguous spread osteomyelitis of the shaft of the second metatarsal and the third metatarsal head. Large soft tissue wound extending to the hindfoot. Muscular edema. No abscess. Electronically Signed: Tony Paulino MD at 14:29 EDT , Service support , Lower Extremity MRI MRI LOWER EXTREMITY LEFT TIBIA/FIBULA 06/09/18 11:40 IMPRESSION: No MRI evidence of osteomyelitis. Soft tissue wound with abscess. Electronically Signed: Tony Paulino MD at 15:45 EDT , Service support , MRI LOWER EXTREMITY RIGHT TIBIA/FIBULA 06/09/18 11:40 IMPRESSION: No MRI evidence of osteomyelitis. Myositis with muscular edema. No fluid collection or abscess. Electronically Signed: Tony Paulino MD at 15:38 EDT , Service support , Chest X-Ray 06/09/18 17:35 IMPRESSION: No change. No acute chest disease. Moderate cardiomegaly. Electronically Signed: Renny Henriquez MD at 20:57 EDT , Service support , Assessment/Plan All Active Problems NLD (necrobiosis lipoidica diabeticorum) (Acute) Pressure sore of left ischium, stage 2 (Acute) Right ischial pressure sore, stage 2 (Acute) Pressure ulcer of sacral region, stage 2 (Acute) Vasculitis (Acute) Abscess of right leg (Acute) Abscess of right foot (Acute) Gangrene (Acute) Severe sepsis (Acute) 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 Extensive nonhealing diabetic ulcer right anterior leg. 2. Extensive nonhealing diabetic ulcer left posterior leg with abscess. 3. Root foot abscess, s/p I&D. 4. Sacral pressure sore cluster, at least a Stage II. 5. Right ischial pressure sore, at least a Stage II. 6. Left ischial pressure sore, at least a Stage II. 7. Diabetes mellitus. 8. Smoker. 9. 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 MRI reviewed. Dr. Gruber has taken this patient to surgery for the right foot abscess and after MRI revealed an abscess on the left posterior leg, she is scheduled to take him to surgery tomorrow for I&D as well. He is currently on Zosyn. Cultures thus far show Proteus vulgaris, Staphylococcus aureus, and Bacteroides fragilis. The bilateral leg ulcers show some chronic exudate. Suspect possible autoimmune process with necrobiosis lipoidica diabeticorum (NLD). Will have Dr. Gruber do a skin biopsy tomorrow at the time of her debridement. The biopsy will look for vasculitis as well as to rule out carcinoma. With the extent of exudate present, will start Santyl dressing changes daily. If NLD is present, there is no real cure. Can be related to vasculitis or arthritis. UVA therapy has been tried but usually smaller areas of involvement. Also smaller areas can be debrided and skin grafted after stabilization with steroids for the vasculitis. The areas involved on this patient are too extensive for that. Patient will need amputations. Discussed with the patient and his . They voiced understanding. Would like to wait until he is medically stable and nutritionally maximized before proceeding with amputations. Ideally would like to see some healing on the legs proximally in order to possibly proceed with below knee amputations. Otherwise, would need above knee amputations. Anticipate increased metabolic demands from his infection and size of his ulcers. Will check a Prealbumin. Encourage nutritional supplementation with protein to help the healing process. With the extensive nature of his wounds, he will need to go to an ECF at discharge. Also at discharge, can followup [facility]. Besides the chronic leg ulcerations, he also has multiple pressure sores on his sacrum and bilateral ischial areas. Will also start Santyl dressing changes daily. He will need a CT Pelvis to evaluate for possible underlying osteomyelitis. He will also need a specialty bed such as an air fluidized bed or low air loss to minimize pressure. Will observe at this time. I anticipate they will need excision but not urgently at this time. Ideally would like to wait until he is more stable medically. At the appropriate time, will discuss with the patient about scheduling his amputations. Patient was informed of the risks and complications of the procedure including alternatives to surgery. These were discussed with the patient personally. Patient voices understanding and wishes to proceed. Code Visit Inpatient E&M: 34120 Init Hosp L3 - ICD-10 - L97.922, L97.912, L02.416, L02.415, L89.152, L89.312, L89.322, E11.622, E11.620, F17.200
[2018-06-09] MEDS: Atorvastatin Calcium 10 MG Tablet PO (22:06)
[2018-06-09] MEDS: Atenolol 25 MG Tablet PO (22:07)
[2018-06-09 22:15] LABS: Bedside Glucose 267 mg/dL (70-110)
[2018-06-10] VITALS (30 sets, daily range): BP systolic 80–110; BP diastolic 53–65; PULSE 82–102; RESP 17–31; TEMP 36.1–36.9; O2SAT 90–100
[2018-06-10] MEDS: Piperacil/Tazobactam 3.375 GM/50 ML ML IV ×3 (05:07→22:09)
--- NOTE | 2018-06-10 06:25 | PCM.PROGNOTE ---
Patient Problems: Active and Suspected Problems Gangrene (Acute) Severe sepsis (Acute) Osteomyelitis (Suspected) PVD (peripheral vascular disease) (Suspected) 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) BPH (benign prostatic hyperplasia) (Suspected) Abscess of left leg (Acute) Ulcer of right lower extremity with fat layer exposed (Acute) Ulcer of left lower extremity with fat layer exposed (Acute) Vasculitic ulcer of lower extremity (Suspected) Subjective: The pt is a 63 YO male who presented to the ED on 06/07/18 with Fever and chills due to extensive ulcerations on both distal LE's and severe cellulitis with osteomyelitis of the R foot. He was taken to surgery on 06/[address] Gruber and had I&D, second ray amputation and extensive debridement of devitalized tissue. There was copious pus. MRI of the LLE on 06/09/18 showed large abscess. Currently being evaluated for an autoimmune disease that may be causing vasculitis. He has a butterfly rash, raynaud's and many chronic non-healing wounds distal to the knees BL. Also with AF/RVR at admission now controlled with Cardizem, Atenolol and amiodarone. Postoperative day #2 Antibiotics day #4 BP's over the past 24 hours have ranged from 82/59 to 86/61 currently. HR is well controlled. Atenolol was decreased to 25 mg BID last evening. The BP is still low but the MAP is 65. Pulse ox is 94-99% on 2 LPM Lab: CRP yesterday was 170 down from 180 at admission. The ESR is 45 down from 51 at admission. RA is less than 10. KEVIN, HLA-B27 and complement studies are pending. Blood sugars yesterday were elevated - appetite is improving. Taken to surgery by Dr. Gruber for incision and drainage right ankle and leg with fasciotomy of medial and posterior compartments of the leg. Third ray resection-left open. Debridement of right leg ulcer including subcutaneous tissue. Incision and drainage of left leg abscess with debridement of left leg ulcer including tendon tissue. Estimated blood loss was 300 cc. Appetite is poor and he is not sleeping. Pain is controlled. He is afraid even though on the surface he seems to be OK with BL amputations. INR is 2.1 today, down from 3.8 yesterday after 5 mg Warfarin. Creatinine is increased at 1.43 today....albumin is 1.4 and he is third spacing Objective: PHYSICAL EXAM: GENERAL: alert, oriented X 3, Cooperative, NAD, flat affect ORAL: moist mucosa, no mucosal lesions NECK: No JVD, supple, trachea midline LUNGS: CTA in the upper lobes with crackles in the bases, symmetric chest expansion - CXR last evening did not reveal CHF HEART: irregular with a controlled VR, Normal S1 and S2, no rub, no gallop ABDOMEN: soft, NT, ND, BS present, no guarding with palpation EXTREMITIES: edema, no cyanosis NEUROLOGIC: mild paresis LUE > LLE Skin: extensive dressings on the wounds post -op. Please see Dr. Gruber's dictation - Physical Exam Vital Signs Temp Pulse Resp BP Pulse Ox 98.4 F 83 31 H 86/61 L 94 06/10/18 06:00 06/10/18 06:00 06/10/18 06:00 06/10/18 06:00 06/10/18 06:00 Oxygen Flow Rate (L/min) 2 Oxygen Delivery Method Nasal Cannula Weight: 233 lb 7.512 oz Body Mass Index (BMI) 29.9 Finger Stick Blood Glucose 192 Intake and Output for Last 24 Hours 06/08/18 06/09/18 06/10/18 23:59 23:59 23:59 Intake Total 2639.3 / 2639.3 3297.6 / 3297.6 1491.4 / 1491.4 Output Total 1210 / 1210 1000 / 1000 350 / 350 Balance 1429.3 / 1429.3 2297.6 / 2297.6 1141.4 / 1141.4 Microbiology Past 72 Hours 06/08/18 Unknown Gram Stain - Final Wound - Other Wound Culture - Preliminary Gram negative krystin 06/07/18 12:50 Gram Stain - Final Wound Abcess - Right Foot Wound Culture - Final Proteus vulgaris Staphylococcus aureus Anaerobic Culture - Preliminary Presumptive B. fragilis group Laboratory Tests Past 24 Hrs 06/09/18 06/09/18 06/09/18 06:53 17:30 17:30 ESR 45 H C-React Prot Ext Range Rheumatoid Factor Cycl Citrul Peptide IgG Pending KEVIN Screen RIRI-1 Antibody SS-A/Ro IgG Antibody SS-B/La IgG Antibody Sm (Muhammad) Antibody POUNCER MACHINE Antibody Scl-70 Scleroderma Ab Double Strand DNA Ab Centromere B Antibody Complement C3 Complement C4 Tot Complement (CH50) HLA-B27 MRSA (PCR) Negative Blood Type Antibody Screen 06/09/18 06/09/18 06/09/18 17:30 17:32 17:32 ESR C-React Prot Ext Range 170.00 H Rheumatoid Factor < 10.0 Cycl Citrul Peptide IgG KEVIN Screen Pending RIRI-1 Antibody Pending SS-A/Ro IgG Antibody Pending SS-B/La IgG Antibody Pending Sm (Muhammad) Antibody Pending POUNCER MACHINE Antibody Pending Scl-70 Scleroderma Ab Pending Double Strand DNA Ab Pending Centromere B Antibody Pending Complement C3 Complement C4 Tot Complement (CH50) HLA-B27 MRSA (PCR) Blood Type Antibody Screen 06/09/18 06/09/18 17:32 17:32 ESR C-React Prot Ext Range Rheumatoid Factor Cycl Citrul Peptide IgG KEVIN Screen RIRI-1 Antibody SS-A/Ro IgG Antibody SS-B/La IgG Antibody Sm (Muhammad) Antibody POUNCER MACHINE Antibody Scl-70 Scleroderma Ab Double Strand DNA Ab Centromere B Antibody Complement C3 Pending Complement C4 Pending Tot Complement (CH50) Pending HLA-B27 Pending MRSA (PCR) Blood Type O POSITIVE Antibody Screen NEGATIVE POC Glucose 06/09/18 06/09/18 06/09/18 22:05 17:03 11:13 POC Glucose 267 H 217 H 331 H 06/09/18 06:49 POC Glucose 145 H Medical Necessity - Tobacco Use Smoking Status: Heavy Smoker (>10/day) - 1 pack per day Tobacco Use: Cigarettes Assessment/Plan All Active Problems Gangrene (Acute) Severe sepsis (Acute) 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) Abscess of left leg (Acute) Ulcer of right lower extremity with fat layer exposed (Acute) Ulcer of left lower extremity with fat layer exposed (Acute) Impressions 1. Severe sepsis with cellulitis, abscess, gangrene and osteomyelitis of the R foot -cultures positive for Proteus vulgaris, MSSA, presumptive Bacteroides fragilis, Streptococcus intermedius and a gram-negative krystin that has not been identified. Blood culture from 06/07/2018 also had gram-negative krystin. Repeat blood culture from 06/09/2018 is pending 2. extensive wounds of both LE's with necrotic tissue posterior left distal LE over the achilles and abscess L calf 3. Neuropathy 4. DM II - controlled 5. Suspect severe peripheral vascular disease but DOROTHY's did not support this.....but I suspect this is inaccurate due to calcification of the vessels 6. Anemia with increased RDW and normocytic indices - iron studies are consistent with iron deficiency - Ferritin is WNL because it is a acute phase reactant and he has severe infection that is wide spread 7. Atrial fibrillation with rapid ventricular response - rate controlled now with amiodarone and beta dilia and amiodarone 8. Chronic anticoagulation with warfarin 9. Cardiac murmur in the left axillary area-suspect mitral regurgitation 10. 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 Pulmonary hypertension with a PA systolic estimated at 67, up from 51 and 2013 12. Tobacco dependence 13. Hyperlipidemia 14. Remote CVA with mild left hemiparesis 15. Hypertension 16. Chronic low back pain 17. Depression 18. BPH 19. frozen joints BL ankle 20. Stage II decubitus ulcers on both buttocks 21. abscess Left leg 22. Raynaud's, butterfly rash, BL knee pain with intermittent swelling and back pain.......mother had the rash and amputations also - suspect he may have an autoimmune disease with possible vasculitis 23. Supratherapeutic INR 24. Tachypnea, hypoxemia and accessory muscle use-patient is almost 5 L up since admission-check chest x-ray now 25. hypotension - 26. iron deficiency Add Lantus at HS - 10 units and bump up the sliding scale continue the current antibiotics Start Remeron at HS for depression, decreased appetite and insomnia transfuse 2 units of PRBC's for hypotension decrease the Cardizem dose Try and increase nutrition in preparation for BL amputations - question is how high? BKA or AKA? recheck the lab in the AM restart coumadin if no oozing from wounds tomorrow
[2018-06-10] MEDS: dilTIAZem CD 120 MG Capsule PO ×2 (06:47→21:04)
[2018-06-10 07:00] LABS: Bedside Glucose 204 mg/dL (70-110)
--- NOTE | 2018-06-10 07:11 | PCM.PN.CARD ---
Subjectve: Patient seen and evaluated. Objective: Vital Signs Temp Pulse Resp BP Pulse Ox 98.0 F 83 26 H 99/63 97 06/10/18 07:00 06/10/18 07:00 06/10/18 07:00 06/10/18 07:00 06/10/18 07:00 Oxygen Flow Rate (L/min) 2 Oxygen Delivery Method Nasal Cannula Weight: 233 lb 7.512 oz Body Mass Index (BMI) 29.9 Finger Stick Blood Glucose 192 Intake and Output for Last 24 Hours 06/08/18 06/09/18 06/10/18 23:59 23:59 23:59 Intake Total 2639.3 / 2639.3 3297.6 / 3297.6 1491.4 / 1491.4 Output Total 1210 / 1210 1000 / 1000 350 / 350 Balance 1429.3 / 1429.3 2297.6 / 2297.6 1141.4 / 1141.4 General: Awake, Alert, Oriented x 3 HEENT: PERRL, EOMI, Sclera Non Icteric Neck: Supple, Good ROM, No Lymph Node Enlargement Lungs: Clear to auscultation Cardiovascular: Regular Rhythm, Normal S1, Normal S2, No Murmurs, No Rubs, No Gallops Vascular: No Carotid Bruits, Normal Femoral Pulses, Normal Radial Pulses, Normal Dorsalis Pedal Pulse, Normal Posterior Tibial Pulses Abdomen: Bowel Sounds Present, Soft, Non Tender, No HSM, No Organomegaly Extremities: No Cyanosis, No Clubbing, - - Bilateral leg wounds Neurological: No Focal Motor or Sensory Deficit Psych/Mental Status: Appropriate Rhythm: EKG: ECHO: Stress Test: Cardiac Cath: PCI: CT Surgery: Holter monitor: EPS: PPM: CXR: Chest CT Scan: Medical Necessity - Tobacco Use Smoking Status: Heavy Smoker (>10/day) - 1 pack per day Tobacco Use: Cigarettes Assessment/Plan 1. Post operative cardiac assessment. He is a gentleman with significant coronary risk factors comprising of diabetes mellitus, hypertension, previous cerebrovascular accident or sedentary lifestyle. His echocardiogram demonstrated mild global left ventricular systolic dysfunction. He also has 2+ mitral regurgitation and moderate pulmonary hypertension. His stress test was canceled because the operating room wanted him down there right away. It was felt by Dr. Andrews that he did not need it. He apparently did well. Postoperatively he has done well he remains in atrial fibrillation with nonspecific ST-T wave changes. His ventricular response rate appears to be controlled. There is a sense that he may need further surgery today. At this time he appears to be stable and I would not recommend we make any changes. He will continue the current medications that he is taking. 2. Paroxysmal atrial fibrillation. He does have a history of paroxysmal atrial fibrillation. The plan at this time would be for him to continue rate control with the beta-dilia. I will suggest the addition of calcium channel dilia in addition to the amiodarone for rate control. No anticoagulation at this time.. 3. Hypertension. His blood pressure appear to be very well controlled on the current medical therapy. He will continue with the current medical therapy. Thank you for allowing me to participate in the care of your patient. Please don't hesitate to call if any issues arise
[2018-06-10 07:32] LABS: International Normalized Ratio 2.1; Prothrombin Time (Protime)PT. 23.3 SECONDS (11.7-14.9)
[2018-06-10 07:37] LABS: Absolute Lymphocyte Count 0.46 X10^3/ul (0.83-4.51); Absolute Neutrophil Count 11.3 X10^3/uL (2.0-7.7); Basophil# 0.02 X10^3/uL; Basophil% 0.2 % (0-1); Eosinophil# 0.02 X10^3/uL; Eosinophils% 0.2 % (0-5); Hematocrit 24.9 % (40-54); Hemoglobin 7.6 g/dl (13.0-16.5); Lymphocyte # 0.46 X10^3/ul (4.0); Lymphocyte % 3.6 % (19-41); Mean Corp Hgb Conc 30.5 g/gl (32-36); Mean Corpuscular Hgb 28.3 pg (27.0-32.0); Mean Corpuscular Volume 92.6 fL (80-94); Mean Platelet Vol. 11.4 fl (6.2-12.0); Monocyte# 0.83 X10^3/uL; Monocyte% 6.6 % (0-10); Neutrophil # 11.25 X10^3/uL (2.7-7.7); Platelet Count 268 K/mm3 (150-450); RBC Distribution Width CV 20.2 % (11.6-14.6); RBC Distribution Width SD 68.2 fl (35.1-43.9); Red Blood Count 2.69 M/mm3 (4.6-6.2); White Blood Count 12.6 K/mm3 (4.4-11.0)
[2018-06-10 07:38] LABS: Differential Indicated SCAN CRITERIA MET; POSITIVE COUNT NO; POSITIVE DIFFERENTIAL YES; POSITIVE MORPHOLOGY YES
[2018-06-10 07:40] LABS: ALB/GLOB Ratio 0.3 RATIO (0.9-2.4); AST(SGOT) 29 U/L (15-37); Alanine Aminotransfer ALT/SGPT 23 U/L (16-61); Albumin, Serum 1.4 g/dL (3.2-5.0); Alkaline Phosphatase 334 U/L (45-117); Anion Gap 10 (5-15); BUN 48 mg/dL (7-18); BUN/Creat Ratio 33.6 RATIO (10-20); Calcium,Total 7.7 mg/dL (8.5-10.1); Chloride 102 mmol/L (98-107); Creatinine, Serum 1.43 mg/dL (0.70-1.30); EST Glomerular Filtration Rate 53 mL/min (>60); Est Glom Filt Rate - Afr Amer 64 mL/min (>60); Estimated Creatinine Clearance 60.68 ml/min; Globulin 4.2 g/dL (2.2-4.2); Glucose 205 mg/dL (74-106); Potassium 4.2 mmol/L (3.5-5.1); Protein, Total 5.6 g/dL (6.4-8.2); Sodium Level 135 mmol/L (136-145)
[2018-06-10] MEDS: Insulin Lispro 100 UNIT/ML INSULN.PEN SC (08:05)
[2018-06-10 08:06] LABS: Anisocytosis 3+; Ovalocyte 3+
[2018-06-10] MEDS: Aspirin E.C. 81 MG Tablet PO (08:06)
[2018-06-10] MEDS: Glimepiride 4 MG Tablet PO (08:06)
[2018-06-10 08:07] LABS: Polychromasia RARE
[2018-06-10] MEDS: Amiodarone 200 MG Tablet PO (08:07)
[2018-06-10] MEDS: Docusate Sodium 100 MG Capsule PO ×2 (08:07→21:03)
[2018-06-10] MEDS: Atenolol 25 MG Tablet PO (08:07)
[2018-06-10] MEDS: Ascorbic Acid 500 MG Tablet PO ×2 (08:07→21:01)
[2018-06-10] MEDS: Lisinopril 40 MG Tablet PO (08:08)
[2018-06-10] MEDS: 0.9% Normal Saline 1,000 ML 60 ML IV (10:47)
[2018-06-10 12:21] LABS: Bedside Glucose 194 mg/dL (70-110)
--- NOTE | 2018-06-10 13:39 | NURSING ---
Left dressings to bilateral lower legs in place since patient will be going to surgery later today.
--- NOTE | 2018-06-10 14:18 | NURSING ---
report called to Sherri MALCOLM in [place]
--- NOTE | 2018-06-10 15:47 | PCM.PROGNOTE ---
Patient Problems: Active and Suspected Problems Gangrene (Acute) Severe sepsis (Acute) Osteomyelitis (Suspected) PVD (peripheral vascular disease) (Suspected) 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) BPH (benign prostatic hyperplasia) (Suspected) Subjective: The patient is a 63 year old M with a past medical history of hypertension, diabetes mellitus type 2, hyperlipidemia, ischemic CVA in 2012, paroxysmal atrial fibrillation, tobacco dependence due to cigarettes, depression, claudication and chronic nonhealing wounds of both lower extremities who presented to the ED at [facility] on 06/07/18 c/o fever and shaking chills. He has non-healing ulcerations on both LE's with necrosis that have been present for month and extend from the knees to the toes on both feet. - Physical Exam Vital Signs Temp Pulse Resp BP Pulse Ox 98.0 F 88 25 H 88/62 L 94 06/10/18 14:00 06/10/18 14:00 06/10/18 14:00 06/10/18 14:00 06/10/18 14:00 Oxygen Flow Rate (L/min) 2 Oxygen Delivery Method Nasal Cannula Weight: 247 lb 7.996 oz Body Mass Index (BMI) 29.9 Finger Stick Blood Glucose 192 Intake and Output for Last 24 Hours 06/08/18 06/09/18 06/10/18 23:59 23:59 23:59 Intake Total 2639.3 / 2639.3 3297.6 / 3297.6 2051.4 / 2051.4 Output Total 1210 / 1210 1000 / 1000 600 / 600 Balance 1429.3 / 1429.3 2297.6 / 2297.6 1451.4 / 1451.4 Microbiology Past 72 Hours 06/08/18 Unknown Gram Stain - Final Wound - Other Wound Culture - Preliminary Proteus vulgaris Staphylococcus aureus Anaerobic Culture - Preliminary Checking for anaerobes, further studies to follow. 06/07/18 12:50 Gram Stain - Final Wound Abcess - Right Foot Wound Culture - Final Proteus vulgaris Staphylococcus aureus Anaerobic Culture - Preliminary Presumptive B. fragilis group Laboratory Tests Past 24 Hrs 06/09/18 06/09/18 06/09/18 17:30 17:30 17:30 WBC RBC Hgb Hct MCV MCH MCHC RDW RDW Differential Plt Count MPV Immature Gran % (Auto) Neut % (Auto) Lymph % (Auto) [place] % (Auto) Eos % (Auto) Baso % (Auto) Absolute Neuts (auto) Absolute Lymphs (auto) Total Counted Polychromasia Anisocytosis Ovalocytes ESR 45 H PT INR Sodium Potassium Chloride Carbon Dioxide Anion Gap BUN Creatinine Estim Creat Clear Calc Est GFR (MDRD) Af Amer Est GFR (MDRD) Non-Af BUN/Creatinine Ratio Glucose Calcium Total Bilirubin AST ALT Alkaline Phosphatase C-React Prot Ext Range 170.00 H Total Protein Albumin Globulin Albumin/Globulin Ratio Rheumatoid Factor Cycl Citrul Peptide IgG Pending KEVIN Screen RIRI-1 Antibody SS-A/Ro IgG Antibody SS-B/La IgG Antibody Sm (Muhammad) Antibody SOLAR DESIGN ENGINEER Antibody Scl-70 Scleroderma Ab Double Strand DNA Ab Centromere B Antibody Complement C3 Complement C4 Tot Complement (CH50) HLA-B27 Blood Type Antibody Screen 06/09/18 06/09/18 06/09/18 17:32 17:32 17:32 WBC RBC Hgb Hct MCV MCH MCHC RDW RDW Differential Plt Count MPV Immature Gran % (Auto) Neut % (Auto) Lymph % (Auto) [place] % (Auto) Eos % (Auto) Baso % (Auto) Absolute Neuts (auto) Absolute Lymphs (auto) Total Counted Polychromasia Anisocytosis Ovalocytes ESR PT INR Sodium Potassium Chloride Carbon Dioxide Anion Gap BUN Creatinine Estim Creat Clear Calc Est GFR (MDRD) Af Amer Est GFR (MDRD) Non-Af BUN/Creatinine Ratio Glucose Calcium Total Bilirubin AST ALT Alkaline Phosphatase C-React Prot Ext Range Total Protein Albumin Globulin Albumin/Globulin Ratio Rheumatoid Factor < 10.0 Cycl Citrul Peptide IgG KEVIN Screen Pending RIRI-1 Antibody Pending SS-A/Ro IgG Antibody Pending SS-B/La IgG Antibody Pending Sm (Muhammad) Antibody Pending SOLAR DESIGN ENGINEER Antibody Pending Scl-70 Scleroderma Ab Pending Double Strand DNA Ab Pending Centromere B Antibody Pending Complement C3 Pending Complement C4 Pending Tot Complement (CH50) Pending HLA-B27 Pending Blood Type Antibody Screen 06/09/18 06/10/18 06/10/18 17:32 07:10 07:10 WBC 12.6 H RBC 2.69 L Hgb 7.6 L Hct 24.9 L MCV 92.6 MCH 28.3 MCHC 30.5 L RDW 20.2 H RDW Differential 68.2 H Plt Count 268 MPV 11.4 Immature Gran % (Auto) 0.400 Neut % (Auto) 89.0 H Lymph % (Auto) 3.6 L [place] % (Auto) 6.6 Eos % (Auto) 0.2 Baso % (Auto) 0.2 Absolute Neuts (auto) 11.3 H Absolute Lymphs (auto) 0.46 L Total Counted Not Reportable Polychromasia RARE Anisocytosis 3+ Ovalocytes 3+ ESR PT 23.3 H INR 2.1 Sodium Potassium Chloride Carbon Dioxide Anion Gap BUN Creatinine Estim Creat Clear Calc Est GFR (MDRD) Af Amer Est GFR (MDRD) Non-Af BUN/Creatinine Ratio Glucose Calcium Total Bilirubin AST ALT Alkaline Phosphatase C-React Prot Ext Range Total Protein Albumin Globulin Albumin/Globulin Ratio Rheumatoid Factor Cycl Citrul Peptide IgG KEVIN Screen RIRI-1 Antibody SS-A/Ro IgG Antibody SS-B/La IgG Antibody Sm (Muhammad) Antibody SOLAR DESIGN ENGINEER Antibody Scl-70 Scleroderma Ab Double Strand DNA Ab Centromere B Antibody Complement C3 Complement C4 Tot Complement (CH50) HLA-B27 Blood Type O POSITIVE Antibody Screen NEGATIVE 06/10/18 07:10 WBC RBC Hgb Hct MCV MCH MCHC RDW RDW Differential Plt Count MPV Immature Gran % (Auto) Neut % (Auto) Lymph % (Auto) [place] % (Auto) Eos % (Auto) Baso % (Auto) Absolute Neuts (auto) Absolute Lymphs (auto) Total Counted Polychromasia Anisocytosis Ovalocytes ESR PT INR Sodium 135 L Potassium 4.2 Chloride 102 Carbon Dioxide 23.0 Anion Gap 10 BUN 48 H Creatinine 1.43 H Estim Creat Clear Calc 60.68 Est GFR (MDRD) Af Amer 64 Est GFR (MDRD) Non-Af 53 L BUN/Creatinine Ratio 33.6 H Glucose 205 H Calcium 7.7 L Total Bilirubin 1.50 H AST 29 ALT 23 Alkaline Phosphatase 334 H C-React Prot Ext Range Total Protein 5.6 L Albumin 1.4 L Globulin 4.2 Albumin/Globulin Ratio 0.3 L Rheumatoid Factor Cycl Citrul Peptide IgG KEVIN Screen RIRI-1 Antibody SS-A/Ro IgG Antibody SS-B/La IgG Antibody Sm (Muhammad) Antibody SOLAR DESIGN ENGINEER Antibody Scl-70 Scleroderma Ab Double Strand DNA Ab Centromere B Antibody Complement C3 Complement C4 Tot Complement (CH50) HLA-B27 Blood Type Antibody Screen POC Glucose 06/10/18 06/10/18 06/09/18 12:14 06:46 22:05 POC Glucose 194 H 204 H 267 H 06/09/18 17:03 POC Glucose 217 H Medical Necessity - Tobacco Use Smoking Status: Heavy Smoker (>10/day) - 1 pack per day Tobacco Use: Cigarettes Assessment/Plan All Active Problems Gangrene (Acute) Severe sepsis (Acute) 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)
--- NOTE | 2018-06-10 18:11 | OP.PN_ITS ---
Problem List 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 (2) Ulcer of right foot with necrosis of muscle Status: Chronic (3) Osteomyelitis Status: Chronic Qualifiers: Osteomyelitis location: foot Laterality: right (4) Right foot infection Status: Chronic (5) Type 2 diabetes mellitus with diabetic polyneuropathy Status: Chronic (6) Localized edema Status: Chronic (7) PVD (peripheral vascular disease) Status: Suspected (8) Tobacco user Status: Chronic (9) Abscess of left leg Status: Acute (10) Ulcer of right lower extremity with fat layer exposed Status: Acute (11) Ulcer of left lower extremity with fat layer exposed Status: Acute Immediate Post-Op Note Date of Procedure: 06/10/18 - Surgeon: Dimitrios Gruber DPM Steel Engraver: Mariella Benedict PGY3 Primary Surgeon/Physician: Izzy Gruber DPM flatbed press operator: none Pre-Operative Diagnosis: Right third metatarsal phalangeal joint sepsis with osteomyelitis. Right foot and leg cellulitis with abscess. Left leg ulcer with necrotic tendon. Left leg abscess. Bilateral leg ulcers Post-Operative Diagnosis: Right third metatarsal phalangeal joint sepsis with osteomyelitis. Right foot and leg cellulitis with abscess. Left leg ulcer with necrotic tendon. Left leg abscess. Bilateral leg ulcers Surgery/Procedure Performed:: Incision and drainage right ankle and leg with fasciotomy of medial and posterior compartments of leg. third ray resection, open. Debridement of right leg ulcer including subcutaneous tissue. Incision and drainage left leg abscess. Debridemet of left leg ulcer including tendon tissue Description of Surgical Findings:: Hemostasis: Right thigh tourniquet, 265 mmHg. No left tourniquet utilized. Bilateral anatomic dissection Materials: Gelfoam Complications: None The patient tolerated the procedures well and was transferred to the PACU vital signs stable and vascular status intact and consistent preoperative exam to bilateral lower extremities. Specimens and cultures were sent as noted in the results are pending. Postoperative orders were entered electronically. Estimated Blood Loss: 300 mL Specimen's removed: 1. right foot soft tissue and bone sent to pathology. 2. right leg vasculitis punch biopsy sent to pathology. 3. left soft tissue infection sent to microbiology: aerobic, anearobic, acid fast, fungal Type of Anesthesia:: General - Admit VTE Documentation VTE Present on Admission: No VTE Mechan Device Prophylaxis: None
--- NOTE | 2018-06-10 18:38 | PCM.OPRPT ---
Problem List 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 (2) Ulcer of right foot with necrosis of muscle Status: Chronic (3) Osteomyelitis Status: Chronic Qualifiers: Osteomyelitis location: foot Laterality: right (4) Right foot infection Status: Chronic (5) Type 2 diabetes mellitus with diabetic polyneuropathy Status: Chronic (6) Localized edema Status: Chronic (7) PVD (peripheral vascular disease) Status: Suspected (8) Tobacco user Status: Chronic (9) Abscess of left leg Status: Acute (10) Ulcer of right lower extremity with fat layer exposed Status: Acute (11) Ulcer of left lower extremity with fat layer exposed Status: Acute (12) Vasculitic ulcer of lower extremity Status: Suspected Report of Operation Date of Procedure: 06/10/18 - Surgeon: Dimitrios Gruber DPM Associate Professor Computer Science: Mariella Benedict PGY3 Pre-Operative Diagnosis: Right third metatarsal phalangeal joint sepsis with osteomyelitis. Right foot and leg cellulitis with abscess. Left leg ulcer with necrotic tendon. Left leg abscess. Bilateral leg ulcers Post-Operative Diagnosis: Right third metatarsal phalangeal joint sepsis with osteomyelitis. Right foot and leg cellulitis with abscess. Left leg ulcer with necrotic tendon. Left leg abscess. Bilateral leg ulcers Surgery/Procedure Performed:: Incision and drainage right ankle and leg with fasciotomy of medial and posterior compartments of leg. third ray resection, open. Debridement of right leg ulcer including subcutaneous tissue. Incision and drainage left leg abscess. Debridemet of left leg ulcer including tendon tissue Description of Surgical Findings:: Hemostasis: Right thigh tourniquet, 265 mmHg. No left tourniquet utilized. 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 Associate Professor Computer Science: Mariella Benedict PGY3 Type of Anesthesia:: General Specimen's removed: 1. right foot soft tissue and bone sent to pathology. 2. right leg vasculitis punch biopsy sent to pathology. 3. left soft tissue infection sent to microbiology: aerobic, anearobic, acid fast, fungal Estimated Blood Loss (mL): 300 mL Description of Procedure: Indications: This 63-year-old male with multiple comorbidities including congestive heart failure, anemia, diabetes with neuropathy, peripheral vascular disease, lower extremity edema, atrial fibrillation, cardiomyopathy, positive tobacco use continues to have chronic ulcers of both lower extremities. He has been admitted for lower extremity infections and sepsis. He went for an open ray resection and incision and drainage of the foot to the rear foot this past Wednesday with notable medical stabilization following. He does have continued odor and devitalized tissue and purulence noted to this limb and further irrigation and drainage was recommended. He continues on IV antibiotics per infectious disease. Cultures were obtained. He had an MRI of the right lower extremity which does not demonstrate midfoot osteomyelitis. There was residual osteomyelitis noted to the third metatarsal head into the proximal base of third toe. There was some synovitis presumably infectious along the flexor tendons medial to the ankle and into the lower leg. No effusion of the ankle or osteomyelitis of the ankle or leg were seen. The left posterior leg also has proximal leg tendon Achilles that is devitalized and necrotic noted as well and there has been clinical loculation of purulent drainage consistent with an abscess. The MRI of the left leg confirmed a 6 x 1.2 cm abscess that was fairly superficial and located at the posterior medial leg. I recommended debridement of this site and further debridement both large widespread circumferential wounds. It is noted he is being treated medically, smoking cessation recommended, and and he has been worked up for underlying vasculitis. The indications, planned procedure, possible benefits, risks, complications, and anticipated healing time management were discussed in detail to patient. He understands and elects to proceed with surgery at this time. No guarantees were made. He understands he is at risk for limb loss. This will likely be a staged procedure. The goal today is to further eradicate the infection and allow drainage to occur. He is high risk for bilateral leg amputations once he is more medically stabilized. The functionality of these limbs remain very guarded. He still demonstrate leukocytosis. He was provided with vitamin K yesterday and his INR is now 2.1. He is n.p.o. Vascular surgery and infectious disease are also on the case and I reviewed his preoperative history and physical. Dr. Barnett has provided the preoperative optimization which is appreciated. I answered all his questions. Surgical consent and surgical limb were signed. The preoperative indications, planned procedure, possible benefits, risks, complications, anticipated healing time and management were discussed in detail with patient. No guarantees were made. His also demonstrates understanding. Procedure in detail: The patient was transported to the operating room via cart and placed on the operating table in supine position. Final verification the patient, surgery, and limb designation was performed via the timeout procedure. A well-padded pneumatic bilateral thigh tourniquets were placed and only the right side was utilized. General anesthesia was initiated by the anesthesia team. Local anesthetic was not administered locally due to the amount of infectious abscesses. He continues on IV antibiotics as previously described that was started on the medical floor. Bilateral lower extremities were prepped and draped in the usual aseptic manner and attention was first directed to the right foot. [place] exsanguination was performed and the tourniquet was inflated. A Doppler was utilized to locate the posterior tibial artery and this was audible adjacent to the medial malleolus site was marked. This was not audible extending into the foot level. An incision was made just proximal to the medial malleolus to enter the flexor retinaculum which was carefully released with a tenotomy scissor. Further the tendon sheath of the posterior tibial and left digitorum longus tendon were incised. There was no infectious synovitis noted in the posterior tibialis tendon sheath. There was purulence coming from the flexor digitorum longus sheath distally and proximal in which a fasciotomy was performed into the lower leg carefully to allow further drainage. Careful dissection was performed taking care to identify, protect, and retract the neurovascular bundle at this site and at all sites throughout the entire procedure. A rent was also made in the sheath of the flexor hallucis muscle belly with a tenotomy scissors to perform this compartment fasciotomy. There was purulence in this site as well. Next, attention was directed to the posterior medial lower calf a couple fingerbreadths below the medial gastrocnemius belly measuring approximately 5 cm in length. Blunt dissection was performed down to the gastrocnemius and soleus fascia layer and this was freed a small incision was made to enter each of these sheath areas to look for purulence and further deep dissection was performed down to the posterior musculature and carefully to the posterior aspect of the tibia in which no purulence was identified at this site or on compression expression to the site. Saline irrigation was performed through all of these sites. A stab incision was made adjacent to the achilles tendon as well as into the anterior leg muscle compartment and additional purulence was not noted. A fishmouth incision was made around the third toe and this was disarticulated and removed from the table. The plantar part of the incision was also extended to ellipse out the plantar sub third metatarsal head. A sagittal saw was used to resect the third metatarsal head. This was sent to pathology and microbiology. No additional purulence coming from the foot and this ray resection site were noted at this time after the debridement. The tourniquet was deflated at this time and pressure was applied to maintain hemostasis. Next copious bulb syringe normal saline irrigation was performed performed to all leg ankle and foot compartments including a recent ray resection. Betadine surgical scrub, versa jet, a 15 blade were used to debride the ulcer sites to the right leg that appear to be nearly circumferential. The site was also copiously cleansed with normal saline. New gloves instruments and drapery was applied. No additional purulence or odor was noted at this time and the wound was packed with deep Betadine soaked woven gauze. Gelfoam was also applied to the distal ray resection site and once stick tie was used with 3-0 nylon to better control hemostasis. Any additional devitalized tissue was removed from the table. The soft tissue and bone of the right foot was sent to pathology. An additional 3 mm punch biopsy was used to take part of the vasculitic ulcer and this was sent to pathology;this was obtained from the right leg ulcer site. Attention was then directed to the left lower extremity in which a 15 blade was utilized to make a 5 cm linear incision proximal slightly medial to anterior of the abscess there is purulent drainage. Devitalized tissue including part of the gastrocnemius sheath and muscle belly were debrided with the rongeur. Soft tissue was sent to microbiology for aerobic, anaerobic, acid-fast, and fungal testing. The compartments of the posterior medial mid leg were entered with a tenotomy scissor to look for any infectious tenosynovitis or additional purulence and this was not identified at this level. The abscess that was drained and debrided correlated with the MRI findings as well. The distal posterior Achilles was also debrided of nonviable tissue with a versa jet. The remainder of the nearly circumferential limb ulcers were further debrided with the versa jet and setting 8 was used. This copious saline irrigation was performed to all of the sites. The deep abscess and I&D site was packed with Betadine soaked gauze. The legs were dressed with Adaptic, gauze, abdominal pads, Kerlix, and a Joao wrap bilateral lower extremities. The pre and post debridement (subcutaneous excisional performed with versajet and 15 blade) measurements are included as the following: left posterior leg: pre- 4.9 x 1.2 x 0.3 cm, post- 5.0 x 1.3 x 0.3 cm (there was necrotic tendon and muscle also debrided from this site) left anterior leg: pre-4.9 x 13.9 x 0.1 cm, post-5 x 14 x 0.1 cm right anterior le.9 x 19 x 0.1 cm, post- 5 x 20 x0.1 cm right medial posterior le.0 x 11.9 x 0.2 cm, post- 4.1 x 12 x 0.2 cm Hemostasis was controlled after debridement to all these site with direct pressure. After procedure: The patient tolerated the procedure and anesthesia well was transported to PACU vital signs stable and vascular status intact to bilateral lower extremities. He was advised to elevate bilateral lower extremities. He will be transferred back to the progressive care unit upon PACU stability. He is to remain nonweightbearing to bilateral lower extremities. He will continue on IV antibiotics and infectious disease will be consulted after his cultures demonstrate some results. He continues on vancomycin, Zosyn, and Flagyl at this time. To continue with proper glycemic control nutritional supplementation optimize healing. Vascular surgery is on consult and plan is to do a duplex Doppler once he is more stable. Medical management, cardiac management, DVT prophylaxis and pain control per primary team is appreciated. Plastic surgery is on consult and is greatly appreciated. His intraoperative microbiology, pathology, punch biopsy test results are pending. Postoperative x-ray of the right foot will be obtained. I will continue to follow him close while in house. This is a planned stage procedure and he will go for additional debridement and irrigation versus other amputations depending on his continued stability. All of his postoperative orders were entered electronically. Izzy Gruber DPM, [facility]
[2018-06-10 19:06] LABS: Bedside Glucose 155 mg/dL (70-110)
[2018-06-10] MEDS: Tamsulosin HCl 0.4 MG Capsule PO (21:01)
[2018-06-10] MEDS: Atorvastatin Calcium 10 MG Tablet PO (21:02)
[2018-06-10] MEDS: Mirtazapine 15 MG Tablet PO (21:07)
[2018-06-10 22:40] LABS: Bedside Glucose 130 mg/dL (70-110)
[2018-06-10 23:15] LABS: Base Excess -4 mmol/L (-2 to +2); Bicarbonate 20.4 mmol/L (22-26); Blood Gas Specimen Type ART; O2 Delivery Device Nasal Can; PO2 75 mmHG (75-100); SITE R Radial; SO2 95 % (95-99); Time Given 2302; Total Carbon Dioxide 21 mmol/L; pCO2 32.9 mmHg (35-45)
[2018-06-11] VITALS (23 sets, daily range): BP systolic 91–116; BP diastolic 49–72; PULSE 84–108; RESP 18–20; TEMP 36.2–37.4; O2SAT 92–100
[2018-06-11] MEDS: 0.9% NaCl Peripheral Flush Adult/Peds IV ×3 (02:43→17:10)
[2018-06-11] MEDS: Piperacil/Tazobactam 3.375 GM/50 ML ML IV ×3 (05:03→22:07)
[2018-06-11] MEDS: 0.9% Normal Saline 1,000 ML 60 ML IV ×2 (05:24→14:01)
[2018-06-11 06:51] LABS: Bedside Glucose 174 mg/dL (70-110)
[2018-06-11 06:58] LABS: International Normalized Ratio 1.5; Prothrombin Time (Protime)PT. 17.9 SECONDS (11.7-14.9)
[2018-06-11 07:10] LABS: Absolute Lymphocyte Count 0.75 X10^3/ul (0.83-4.51); Absolute Neutrophil Count 14.6 X10^3/uL (2.0-7.7); Basophil# 0.02 X10^3/uL; Basophil% 0.1 % (0-1); Eosinophil# 0.01 X10^3/uL; Eosinophils% 0.1 % (0-5); Hematocrit 24.5 % (40-54); Hemoglobin 7.7 g/dl (13.0-16.5); Lymphocyte # 0.75 X10^3/ul (4.0); Lymphocyte % 4.6 % (19-41); Mean Corp Hgb Conc 31.4 g/gl (32-36); Mean Corpuscular Hgb 28.7 pg (27.0-32.0); Mean Corpuscular Volume 91.4 fL (80-94); Mean Platelet Vol. 10.6 fl (6.2-12.0); Monocyte# 0.82 X10^3/uL; Neutrophil # 14.62 X10^3/uL (2.7-7.7); Platelet Count 220 K/mm3 (150-450); RBC Distribution Width CV 18.8 % (11.6-14.6); RBC Distribution Width SD 62.5 fl (35.1-43.9); Red Blood Count 2.68 M/mm3 (4.6-6.2); White Blood Count 16.3 K/mm3 (4.4-11.0)
[2018-06-11 07:16] LABS: ALB/GLOB Ratio 0.5 RATIO (0.9-2.4); AST(SGOT) 17 U/L (15-37); Alanine Aminotransfer ALT/SGPT 17 U/L (16-61); Albumin, Serum 1.8 g/dL (3.2-5.0); Alkaline Phosphatase 224 U/L (45-117); Anion Gap 12 (5-15); BUN 41 mg/dL (7-18); BUN/Creat Ratio 31.3 RATIO (10-20); Calcium,Total 7.8 mg/dL (8.5-10.1); Chloride 107 mmol/L (98-107); Creatinine, Serum 1.31 mg/dL (0.70-1.30); EST Glomerular Filtration Rate 59 mL/min (>60); Est Glom Filt Rate - Afr Amer 71 mL/min (>60); Estimated Creatinine Clearance 66.23 ml/min; Globulin 3.7 g/dL (2.2-4.2); Glucose 165 mg/dL (74-106); Magnesium 2.1 mg/dL (1.6-2.6); Phosphorus 3.4 mg/dL (2.5-4.9); Potassium 4.1 mmol/L (3.5-5.1); Protein, Total 5.5 g/dL (6.4-8.2); Sodium Level 137 mmol/L (136-145)
[2018-06-11 07:20] LABS: POSITIVE COUNT NO; POSITIVE DIFFERENTIAL NO; POSITIVE MORPHOLOGY NO
[2018-06-11] MEDS: Glimepiride 4 MG Tablet PO (07:59)
[2018-06-11] MEDS: Ascorbic Acid 500 MG Tablet PO ×2 (07:59→17:10)
[2018-06-11] MEDS: Insulin Lispro 100 UNIT/ML INSULN.PEN SC ×3 (08:00→17:09)
[2018-06-11] MEDS: oxyCODONE 5 MG Tablet PO ×2 (08:03→13:59)
[2018-06-11] MEDS: Docusate Sodium 100 MG Capsule PO ×2 (08:04→22:12)
[2018-06-11] MEDS: dilTIAZem CD 120 MG Capsule PO ×2 (08:04→22:12)
[2018-06-11] MEDS: Aspirin E.C. 81 MG Tablet PO (08:04)
[2018-06-11] MEDS: Amiodarone 200 MG Tablet PO (08:04)
--- NOTE | 2018-06-11 08:04 | PN.CARD_ITS ---
Subjectve: Patient doing fairly well this morning, had some confusion last evening. Appears to be lucid this morning and answers questions appropriately. Status post surgical debridement of right foot. No chest pain or angina. Telemetry shows atrial fibrillation with controlled ventricular response. Objective: Vital Signs Temp Pulse Resp BP Pulse Ox 98.3 F 98 18 101/70 93 06/11/18 06:00 06/11/18 06:56 06/11/18 06:00 06/11/18 06:00 06/11/18 06:00 Oxygen Flow Rate (L/min) 4 Oxygen Delivery Method Nasal Cannula Weight: 247 lb 7.996 oz Body Mass Index (BMI) 29.9 Finger Stick Blood Glucose 155 Intake and Output for Last 24 Hours 06/09/18 06/10/18 06/11/18 23:59 23:59 23:59 Intake Total 3297.6 / 3297.6 3109.4 / 3109.4 1118 / 1118 Output Total 1000 / 1000 925 / 925 275 / 275 Balance 2297.6 / 2297.6 2184.4 / 2184.4 843 / 843 General: Awake, Alert, Oriented x 3 HEENT: PERRL, EOMI, Sclera Non Icteric Neck: Supple, Good ROM, No Lymph Node Enlargement Lungs: Clear to auscultation Cardiovascular: Irregular Rhythm, Normal S1, Normal S2, No Rubs, No Gallops Murmur Murmur: Grade 2/6, Holosystolic Vascular: No Carotid Bruits, Normal Femoral Pulses, Normal Radial Pulses, Normal Dorsalis Pedal Pulse, Normal Posterior Tibial Pulses Abdomen: Bowel Sounds Present, Soft, Non Tender, No HSM, No Organomegaly Extremities: No Cyanosis, No Clubbing, No edema Neurological: No Focal Motor or Sensory Deficit 06/10/18 07:10: Total Counted Not Reportable 06/10/18 23:09: pH 7.40, Bicarbonate Actual 20.4 L, POC Total CO2 21, Base Excess -4 L, O2 Saturation 95, ABG pCO2 32.9 L, ABG pO2 75 06/11/18 06:40: PT 17.9 H, INR 1.5 06/11/18 06:40: WBC 16.3 H, RBC 2.68 L, Hgb 7.7 L, Hct 24.5 L, MCV 91.4, MCH 28.7, MCHC 31.4 L, RDW 18.8 H, RDW Differential 62.5 H, Plt Count 220, MPV 10.6 , Immature Gran % (Auto) 0.200, Neut % (Auto) 90.0 H, Lymph % (Auto) 4.6 L, [place] % (Auto) 5.0, Eos % (Auto) 0.1, Baso % (Auto) 0.1, Absolute Neuts (auto) 14.6 H, Total Counted Not Reportable 06/11/18 06:40: Sodium 137, Potassium 4.1, Chloride 107, Carbon Dioxide 18.0 L, Anion Gap 12, BUN 41 H, Creatinine 1.31 H, Est GFR (MDRD) Af Amer 71, Est GFR ( MDRD) Non-Af 59 L, BUN/Creatinine Ratio 31.3 H, Glucose 165 H, Calcium 7.8 L, Phosphorus 3.4, Magnesium 2.1, Total Bilirubin 2.60 H Rhythm: EKG: ECHO: LVEF 50%, moderate to severe mitral regurgitation, RVSP of 67 mmHg consistent with severe pulmonary hypertension. Stress Test: Cardiac Cath: PCI: CT Surgery: Holter monitor: EPS: PPM: CXR: Chest CT Scan: Medical Necessity - Tobacco Use Smoking Status: Heavy Smoker (>10/day) - 1 pack per day Tobacco Use: Cigarettes Assessment/Plan 1. Atrial fibrillation: Patient has chronic atrial fibrillation over the last 5 years and is on chronic Coumadin therapy. His INR is 1.5 today. He underwent vitamin K assisted Coumadin reversal in order to perform operative debridement of his right lower extremity osteomyelitis. Patient is doing fairly well from a medical standpoint although he did have some confusion last evening. He appears to be lucid this morning and answers questions appropriately. His heart rate and blood pressure fairly well controlled on current dose of atenolol and diltiazem. Would recommend holding Coumadin therapy until the wound healing has begun to avoid chronic oozing from his wound sites. In the meantime would recommend subcu Lovenox 5000 units twice daily for DVT prophylaxis given his atrial fibrillation and severe pulmonary hypertension. Patient is at high risk for DVT and pulmonary embolism. Once his wounds have demonstrated adequate healing, with switch him back to Coumadin to maintain an INR between 2.0 and 3.0. 2. Pulmonary hypertension: The patient has long-standing atrial fibrillation and severe pulmonary hypertension most likely a result of his mitral regurgitation. Patient will require lifelong anticoagulation and diuretic therapy. His LVEF is about 50%. Patient's stress test was canceled in order to expedite debridement of his lower extremities. Once the patient has healed I would recommend a noninvasive nuclear stress test to evaluate for possible ischemia. If this is grossly abnormal for ischemia he may require diagnostic coronary angiogram, probably preferably through the right radial approach given his lower extremity peripheral vascular disease. 3. Thank you very much for the opportunity to put dissipate in the cardiac care of your patient. Code Visit Inpatient E&M: 01597 Subs Hosp L2
[2018-06-11] MEDS: Atenolol 25 MG Tablet PO ×2 (08:05→22:12)
--- NOTE | 2018-06-11 09:00 | RAD_ITS ---
STUDY: X-RAY - RIGHT FOOT CLINICAL: Male, 63 years old. Amputation TECHNIQUE: 3 view(s) of the foot. COMPARISON: 06/08/2018 FINDINGS: The patient is status post amputation of the right second and third toes at the level of the mid metatarsal. There is no acute fracture or dislocation. There is a plantar calcaneal spur present. There is soft tissue swelling noted. There is no subcutaneous air noted. There are no radiodense foreign bodies. RAD/Foot min 3 Views IMPRESSION: Status post amputation of the right second and third toes at the level of the mid metatarsal. Soft tissue swelling. No acute fracture or dislocation. Electronically Signed: Christofer Marx, at 9:46 EDT Tel , Service support ,
[2018-06-11 11:45] LABS: Bedside Glucose 261 mg/dL (70-110)
--- NOTE | 2018-06-11 13:34 | PCM.PN.HOSP ---
Patient Problems: Active and Suspected Problems Gangrene (Acute) Severe sepsis (Acute) Osteomyelitis (Suspected) PVD (peripheral vascular disease) (Suspected) 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) BPH (benign prostatic hyperplasia) (Suspected) Abscess of left leg (Acute) Ulcer of right lower extremity with fat layer exposed (Acute) Ulcer of left lower extremity with fat layer exposed (Acute) Vasculitic ulcer of lower extremity (Suspected) Subjective: Patient seen and examined. He is a 63-year-old male was admitted via the ED on 05/28/2018 with a complaint of fever and chills and extensive ulcerations on both lower extremities. He is been managed for still myelitis of the right foot with severe cellulitis. He had surgery by podiatry on 06/08/2018 and had I&D and second ray amputation and extensive debridement of devitalized tissue. There was also copious pus. MRI of the left lower extremity on 06/09/2018 showed a large abscess. He is currently being worked up for possible autoimmune disease that may be causing the vasculitis as he has a butterfly rash with 3 notes as well as many chronic nonhealing wounds distal to the knees bilaterally. He also had A. fib with RVR on admission which is now controlled with Cardizem, atenolol and amiodarone. Patient seen and examined. He was sitting up in bed with his by him. Patient looked quite weak and tired. He states he had a good night. He denied any fever or chills. Lower extremities are still wrapped and he is due to go back for possible surgery on Wednesday. He has no cough or chest pain abdominal pain and also denies palpitations. Today's antibiotic day 5 and he is postop day 3 today. Atenolol was decreased to 25 mg twice daily 2 days ago because of low blood pressure. Vitals/I&O's: Vital Signs Temp Pulse Resp BP Pulse Ox 99.4 F H 89 20 H 99/67 92 06/11/18 12:00 06/11/18 12:00 06/11/18 12:00 06/11/18 12:00 06/11/18 12:00 Oxygen Flow Rate (L/min) 3 Oxygen Delivery Method Nasal Cannula Weight: 247 lb 7.996 oz Body Mass Index (BMI) 29.9 Finger Stick Blood Glucose 155 Intake and Output for Last 24 Hours 06/09/18 06/10/18 06/11/18 23:59 23:59 23:59 Intake Total 3297.6 / 3297.6 3109.4 / 3109.4 1999 Output Total 1000 / 1000 925 / 925 725 / 725 Balance 2297.6 / 2297.6 2184.4 / 2184.4 1275 / 1275 General: Alert, Oriented x3, Cooperative HEENT: Atraumatic, PERRLA, EOMI, Normocephalic Oral: Moist Mucosa Neck: Supple, No JVD, Negative Carotid Bruits Lungs: Clear to auscultation, Normal air movement Cardiovascular: Regular rate, - - irregularly irregular rhythm Abdomen: Bowel Sounds Present, Soft, Non Tender, Non-Distended, No Hepato-splenomegaly Extremities: No cyanosis, No edema, Capillary Refill Less than 3 Seconds, - - both LEs wrapped in MARIO bandage Skin: - - hyperpigmented, erythematous rash on cheeks Musculoskeletal: No Tenderness to Palpation of Joints or Extremities Lymphatic: No Cervical, Supraclavicular, or Inguinal Adenopathy Neurological: Cranial nerves II-XII grossly intact, Motor Exam 5/5 strength throughout Psych/Mental Status: Normal Affect, Appropriate, Alert and oriented to time, place, person, mood and affect Microbiology Past 72 Hours 06/10/18 17:11 Biopsy - Leg, Left Wound Culture - Preliminary Gram negative [email or web address] 06/07/18 12:50 Wound Abcess - Right Foot Gram Stain - Final 06/07/18 12:50 Wound Abcess - Right Foot Wound Culture - Final Proteus vulgaris Staphylococcus aureus 06/07/18 12:50 Wound Abcess - Right Foot Anaerobic Culture - Final Presumptive B. fragilis group Anaerobic cocci 06/08/18 Unknown Wound - Other Gram Stain - Final 06/08/18 Unknown Wound - Other Wound Culture - Preliminary Proteus vulgaris Staphylococcus aureus Gram negative [email or web address] 06/08/18 Unknown Wound - Other Anaerobic Culture - Preliminary Checking for anaerobes, further studies to follow. Laboratory Results 06/09/18 17:32: Crossmatch See Detail 06/10/18 18:59: POC Glucose 155 H 06/10/18 20:20: POC Glucose 130 H 06/10/18 23:09: Specimen Type ART, Sample Site R Radial, pH 7.40, Bicarbonate Actual 20.4 L, POC Total CO2 21, Base Excess -4 L, O2 Saturation 95, ABG pCO2 32.9 L, ABG pO2 75, O2 Delivery Device Nasal Can, Liter Flow 5.0, Blood Gas Notified Whom ROLDAN RAMIREZ, Blood Gas Notified Time 230106/11/18 06:40: PT 17.9 H, INR 1.5 06/11/18 06:40: WBC 16.3 H, RBC 2.68 L, Hgb 7.7 L, Hct 24.5 L, MCV 91.4, MCH 28.7, MCHC 31.4 L, RDW 18.8 H, RDW Differential 62.5 H, Plt Count 220, MPV 10.6, Immature Gran % (Auto) 0.200, Neut % (Auto) 90.0 H, Lymph % (Auto) 4.6 L, [place] % (Auto) 5.0, Eos % (Auto) 0.1, Baso % (Auto) 0.1, Absolute Neuts (auto) 14.6 H, Absolute Lymphs (auto) 0.75 L, Total Counted Not Reportable 06/11/18 06:40: Sodium 137, Potassium 4.1, Chloride 107, Carbon Dioxide 18.0 L, Anion Gap 12, BUN 41 H, Creatinine 1.31 H, Estim Creat Clear Calc 66.23, Est GFR (MDRD) Af Amer 71, Est GFR (MDRD) Non-Af 59 L, BUN/Creatinine Ratio 31.3 H, Glucose 165 H, Calcium 7.8 L, Phosphorus 3.4, Magnesium 2.1, Total Bilirubin 2.60 H, AST 17, ALT 17, Alkaline Phosphatase 224 H, Total Protein 5.5 L, Albumin 1.8 L, Globulin 3.7, Albumin/Globulin Ratio 0.5 L 06/11/18 06:43: POC Glucose 174 H 06/11/18 11:34: POC Glucose 261 H Diagnostic Data Tibia/Fibula X-Ray 06/07/18 05:00 IMPRESSION: Extensive soft tissue infection of the leg and ankle. Electronically Signed: Delilah Brady MD at 9:01 EDT , Service support , Lower Extremity MRI 06/09/18 11:40 IMPRESSION: No MRI evidence of osteomyelitis. Soft tissue wound with abscess. Electronically Signed: Tony Paulino MD at 15:45 EDT , Service support , Chest X-Ray 06/09/18 17:35 IMPRESSION: No change. No acute chest disease. Moderate cardiomegaly. Electronically Signed: Renny Henriquez MD at 20:57 EDT , Service support , Foot X-Ray 06/11/18 09:00 IMPRESSION: Status post amputation of the right second and third toes at the level of the mid metatarsal. Soft tissue swelling. No acute fracture or dislocation. Electronically Signed: Christofer Marx at 9:46 EDT Tel , Service support , Current Medications Amiodarone HCl (Cordarone) 200 mg PO DAILY [facility] Last Admin: 06/11/18 08:04 Dose: 200 mg [facility]ic [facility] ([facility]itamin [facility]) [facility] Last Admin: 06/11/18 07:59 Dose: 500 mg Aspirin (Ecotrin) 81 mg PO DAILY [facility] Last Admin: 06/11/18 08:04 Dose: 81 mg Atenolol (Tenormin (Beta Mikie)) 25 mg PO BID [facility] Last Admin: 06/11/18 08:05 Dose: 25 mg Atorvastatin Calcium (Lipitor) 10 mg PO QHS [facility] Last Admin: 06/10/18 21:02 Dose: 10 mg Cholecalciferol (Vitamin D) 1,000 unit PO DAILY [facility] Last Admin: 06/11/18 08:05 Dose: 1,000 unit Diltiazem HCl (Cardizem Cd) 120 mg PO BID [facility] Last Admin: 06/11/18 08:04 Dose: 120 mg Docusate Sodium (Colace) 100 mg PO BID [facility] Last Admin: 06/11/18 08:04 Dose: 100 mg Glimepiride (Amaryl) [facility] Last Admin: 06/11/18 07:59 Dose: 4 mg Sodium Chloride () 1,000 mls @ 60 mls/hr IV .[id number] [facility] Last Admin: 06/11/18 05:24 Dose: 60 mls/hr Piperacillin Sod/Tazobactam Sod (Zosyn) 3.375 gm in 50 mls @ 12.5 mls/hr IV Q8 [facility] Last Admin: 06/11/18 05:03 Dose: 12.5 mls/hr Albumin Human () 25 gm in 100 mls @ 60 mls/hr IV Q8H [facility] Stop: 06/11/18 19:39 Last Admin: 06/11/18 09:47 Dose: 60 mls/hr Insulin Glargine (Lantus (Bkc)) 10 units SC QHS [facility] Last Admin: 06/10/18 21:06 Dose: 10 unit Insulin Human Lispro (Humalog Kwikpen (Bkc)) 0 unit SC TIDAC [facility] PRN Reason: Protocol Last Admin: 06/11/18 11:36 Dose: 6 units Lisinopril (Zestril) 40 mg PO DAILY [facility] Last Admin: 06/11/18 10:46 Dose: Not Given Magnesium Hydroxide (Milk Of Magnesia) 30 ml PO DAILY PRN PRN Reason: Constipation Mirtazapine (Remeron) 15 mg PO QHS [facility] Last Admin: 06/10/18 21:07 Dose: 15 mg Nicotine (Nicoderm Cq (Pbkc)) 21 mg TRANSDERM. DAILY [facility] Last Admin: 06/11/18 08:06 Dose: 21 mg Nutritional Formula (Juan - [place] Flavor) 1 packet PO BIDCM [facility] Last Admin: 06/11/18 07:59 Dose: 1 packet Oxycodone HCl (Oxyir) 5 mg PO Q4H PRN PRN PRN Reason: SEVERE PAIN (6-10/10) Last Admin: 06/11/18 08:03 Dose: 5 mg Paroxetine HCl (Paxil) 40 mg PO DAILY [facility] Last Admin: 06/11/18 08:04 Dose: 40 mg Sodium Chloride () 5 - 30 ml IV UD PRN PRN Reason: SALINE FLUSH Last Admin: 06/11/18 08:07 Dose: 10 ml Tamsulosin HCl (Flomax) 0.4 mg PO DAILY@1730 [facility] Last Admin: 06/10/18 21:01 Dose: 0.4 mg Zinc Sulfate (Zinc Sulfate) 220 mg PO DAILY [facility] Last Admin: 06/11/18 08:05 Dose: 220 mg Medical Necessity - Tobacco Use Smoking Status: Heavy Smoker (>10/day) - 1 pack per day Tobacco Use: Cigarettes Assessment/Plan All Active Problems Gangrene (Acute) Severe sepsis (Acute) 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 Sepsis due to Osteomyelitis of the right foot. is s/p I&D. Today is POD 4. Cultures were positive for Proteus vulgaris, MSSA< Strep Intermedius and gram negative krystin which is pending review. SIRS criteria today is 3/4 repeat cultures from 06/09/18 are ending has a mild feer with Temp of 99.4F today on [facility] podiatry on board. Due to go for repeat surgery possibly on Wednesday ID also on board 2. Diabetes mellitus with neuropathy on lantus 10IU qhs and ISS accuchecks ACHS. home meds of insulin and glimepiride on hold 3. Afib admitted in RVR; now rate controlled on atenolol. Atenolol dose decreased due to hypotension on amiodaron nad atenolol. coumadin on hold due to surgery 4. 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 Remote CVA with left sided hemiparesis: stable. on statin, aspirin. 6 Bilateral decubitus ulcers: stable. 7. PUlmonary hypertension per Echo: PA pressure is 67, up from 51 in 2013. To optimise heart function to help with pulmonary hypertension 8. Anemia s/p transfusion of 2 units of PRBCs. Hb today iron studies showed iron deficiency anemia will monitor 9. Suspected Autoimmune disease: has negative RA titre. other autoimmune workup pending. Will monitor 10. DVT prophylaxis: heparin. coumadin on hold due to surgery Code Visit Inpatient E&M: [id number] [facility] Hosp L3
--- NOTE | 2018-06-11 13:53 | PN_ITS ---
Patient Problems: Active and Suspected Problems Gangrene (Acute) Severe sepsis (Acute) Osteomyelitis (Suspected) PVD (peripheral vascular disease) (Suspected) 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) BPH (benign prostatic hyperplasia) (Suspected) Abscess of left leg (Acute) Ulcer of right lower extremity with fat layer exposed (Acute) Ulcer of left lower extremity with fat layer exposed (Acute) Vasculitic ulcer of lower extremity (Suspected) Subjective: Patient seen and examined. He is a 63-year-old male was admitted via the ED on 05/28/2018 with a complaint of fever and chills and extensive ulcerations on both lower extremities. He is been managed for still myelitis of the right foot with severe cellulitis. He had surgery by podiatry on 06/08/2018 and had I&D and second ray amputation and extensive debridement of devitalized tissue. There was also copious pus. MRI of the left lower extremity on 06/09/2018 showed a large abscess. He is currently being worked up for possible autoimmune disease that may be causing the vasculitis as he has a butterfly rash with 3 notes as well as many chronic nonhealing wounds distal to the knees bilaterally. He also had A. fib with RVR on admission which is now controlled with Cardizem, atenolol and amiodarone. Patient seen and examined. He was sitting up in bed with his by him. Patient looked quite weak and tired. He states he had a good night. He denied any fever or chills. Lower extremities are still wrapped and he is due to go back for possible surgery on Wednesday. He has no cough or chest pain abdominal pain and also denies palpitations. Today's antibiotic day 5 and he is postop day 3 today. Atenolol was decreased to 25 mg twice daily 2 days ago because of low blood pressure. Vitals/I&O's: Vital Signs Temp Pulse Resp BP Pulse Ox 99.4 F H 89 20 H 99/67 92 06/11/18 12:00 06/11/18 12:00 06/11/18 12:00 06/11/18 12:00 06/11/18 12:00 Oxygen Flow Rate (L/min) 3 Oxygen Delivery Method Nasal Cannula Weight: 247 lb 7.996 oz Body Mass Index (BMI) 29.9 Finger Stick Blood Glucose 155 Intake and Output for Last 24 Hours 06/09/18 06/10/18 06/11/18 23:59 23:59 23:59 Intake Total 3297.6 / 3297.6 3109.4 / 3109.4 1999 Output Total 1000 / 1000 925 / 925 725 / 725 Balance 2297.6 / 2297.6 2184.4 / 2184.4 1275 / 1275 General: Alert, Oriented x3, Cooperative HEENT: Atraumatic, PERRLA, EOMI, Normocephalic Oral: Moist Mucosa Neck: Supple, No JVD, Negative Carotid Bruits Lungs: Clear to auscultation, Normal air movement Cardiovascular: Regular rate, - - irregularly irregular rhythm Abdomen: Bowel Sounds Present, Soft, Non Tender, Non-Distended, No Hepato- splenomegaly Extremities: No cyanosis, No edema, Capillary Refill Less than 3 Seconds, - - both LEs wrapped in MARIO bandage Skin: - - hyperpigmented, erythematous rash on cheeks Musculoskeletal: No Tenderness to Palpation of Joints or Extremities Lymphatic: No Cervical, Supraclavicular, or Inguinal Adenopathy Neurological: Cranial nerves II-XII grossly intact, Motor Exam 5/5 strength throughout Psych/Mental Status: Normal Affect, Appropriate, Alert and oriented to time, place, person, mood and affect Microbiology Past 72 Hours 06/10/18 17:11 Biopsy - Leg, Left Wound Culture - Preliminary Gram negative [email or web address] 06/07/18 12:50 Wound Abcess - Right Foot Gram Stain - Final 06/07/18 12:50 Wound Abcess - Right Foot Wound Culture - Final Proteus vulgaris Staphylococcus aureus 06/07/18 12:50 Wound Abcess - Right Foot Anaerobic Culture - Final Presumptive B. fragilis group Anaerobic cocci 06/08/18 Unknown Wound - Other Gram Stain - Final 06/08/18 Unknown Wound - Other Wound Culture - Preliminary Proteus vulgaris Staphylococcus aureus Gram negative [email or web address] 06/08/18 Unknown Wound - Other Anaerobic Culture - Preliminary Checking for anaerobes, further studies to follow. Laboratory Results 06/09/18 17:32: Crossmatch See Detail 06/10/18 18:59: POC Glucose 155 H 06/10/18 20:20: POC Glucose 130 H 06/10/18 23:09: Specimen Type ART, Sample Site R Radial, pH 7.40, Bicarbonate Actual 20.4 L, POC Total CO2 21, Base Excess -4 L, O2 Saturation 95, ABG pCO2 32.9 L, ABG pO2 75, O2 Delivery Device Nasal Can, Liter Flow 5.0, Blood Gas Notified Whom ROLDAN RAMIREZ, Blood Gas Notified Time 230106/11/18 06:40: PT 17.9 H, INR 1.5 06/11/18 06:40: WBC 16.3 H, RBC 2.68 L, Hgb 7.7 L, Hct 24.5 L, MCV 91.4, MCH 28.7, MCHC 31.4 L, RDW 18.8 H, RDW Differential 62.5 H, Plt Count 220, MPV 10.6 , Immature Gran % (Auto) 0.200, Neut % (Auto) 90.0 H, Lymph % (Auto) 4.6 L, [place] % (Auto) 5.0, Eos % (Auto) 0.1, Baso % (Auto) 0.1, Absolute Neuts (auto) 14.6 H, Absolute Lymphs (auto) 0.75 L, Total Counted Not Reportable 06/11/18 06:40: Sodium 137, Potassium 4.1, Chloride 107, Carbon Dioxide 18.0 L, Anion Gap 12, BUN 41 H, Creatinine 1.31 H, Estim Creat Clear Calc 66.23, Est GFR (MDRD) Af Amer 71, Est GFR (MDRD) Non-Af 59 L, BUN/Creatinine Ratio 31.3 H, Glucose 165 H, Calcium 7.8 L, Phosphorus 3.4, Magnesium 2.1, Total Bilirubin 2.60 H, AST 17, ALT 17, Alkaline Phosphatase 224 H, Total Protein 5.5 L, Albumin 1.8 L, Globulin 3.7, Albumin/Globulin Ratio 0.5 L 06/11/18 06:43: POC Glucose 174 H 06/11/18 11:34: POC Glucose 261 H Diagnostic Data Tibia/Fibula X-Ray 06/07/18 05:00 IMPRESSION: Extensive soft tissue infection of the leg and ankle. Electronically Signed: Delilah Brady MD at 9:01 EDT , Service support , Lower Extremity MRI 06/09/18 11:40 IMPRESSION: No MRI evidence of osteomyelitis. Soft tissue wound with abscess. Electronically Signed: Tony Paulino MD at 15:45 EDT , Service support , Chest X-Ray 06/09/18 17:35 IMPRESSION: No change. No acute chest disease. Moderate cardiomegaly. Electronically Signed: Renny Henriquez MD at 20:57 EDT , Service support , Foot X-Ray 06/11/18 09:00 IMPRESSION: Status post amputation of the right second and third toes at the level of the mid metatarsal. Soft tissue swelling. No acute fracture or dislocation. Electronically Signed: Christofer Marx at 9:46 EDT Tel , Service support , Current Medications Amiodarone HCl (Cordarone) 200 mg PO DAILY [facility] Last Admin: 06/11/18 08:04 Dose: 200 mg [facility] Last Admin: 06/11/18 07:59 Dose: 500 mg Aspirin (Ecotrin) 81 mg PO DAILY [facility] Last Admin: 06/11/18 08:04 Dose: 81 mg Atenolol (Tenormin (Beta Mikie)) 25 mg PO BID [facility] Last Admin: 06/11/18 08:05 Dose: 25 mg Atorvastatin Calcium (Lipitor) 10 mg PO QHS [facility] Last Admin: 06/10/18 21:02 Dose: 10 mg Cholecalciferol (Vitamin D) 1,000 unit PO DAILY [facility] Last Admin: 06/11/18 08:05 Dose: 1,000 unit Diltiazem HCl (Cardizem Cd) 120 mg PO BID [facility] Last Admin: 06/11/18 08:04 Dose: 120 mg Docusate Sodium (Colace) 100 mg PO BID [facility] Last Admin: 06/11/18 08:04 Dose: 100 mg [facility]pir[facility] (Amaryl) [facility] Last Admin: 06/11/18 07:59 Dose: 4 mg Sodium Chloride () 1,000 mls @ 60 mls/hr IV .[id number] [facility] Last Admin: 06/11/18 05:24 Dose: 60 mls/hr Piperacillin Sod/Tazobactam Sod (Zosyn) 3.375 gm in 50 mls @ 12.5 mls/hr IV Q8 [facility] Last Admin: 06/11/18 05:03 Dose: 12.5 mls/hr Albumin Human () 25 gm in 100 mls @ 60 mls/hr IV Q8H [facility] Stop: 06/11/18 19:39 Last Admin: 06/11/18 09:47 Dose: 60 mls/hr Insulin Glargine (Lantus (Bkc)) 10 units SC QHS [facility] Last Admin: 06/10/18 21:06 Dose: 10 unit Insulin Human Lispro (Humalog Kwikpen (Bkc)) 0 unit SC TIDAC [facility] PRN Reason: Protocol Last Admin: 06/11/18 11:36 Dose: 6 units Lisinopril (Zestril) 40 mg PO DAILY [facility] Last Admin: 06/11/18 10:46 Dose: Not Given Magnesium Hydroxide (Milk Of Magnesia) 30 ml PO DAILY PRN PRN Reason: Constipation Mirtazapine (Remeron) 15 mg PO QHS [facility] Last Admin: 06/10/18 21:07 Dose: 15 mg Nicotine (Nicoderm Cq (Pbkc)) 21 mg TRANSDERM. DAILY [facility] Last Admin: 06/11/18 08:06 Dose: 21 mg Nutritional Formula (Juan - [place] Flavor) 1 packet PO BIDCM [facility] Last Admin: 06/11/18 07:59 Dose: 1 packet Oxycodone HCl (Oxyir) 5 mg PO Q4H PRN PRN PRN Reason: SEVERE PAIN (6-10/10) Last Admin: 06/11/18 08:03 Dose: 5 mg Paroxetine HCl (Paxil) 40 mg PO DAILY [facility] Last Admin: 06/11/18 08:04 Dose: 40 mg Sodium Chloride () 5 - 30 ml IV UD PRN PRN Reason: SALINE FLUSH Last Admin: 06/11/18 08:07 Dose: 10 ml Tamsulosin HCl (Flomax) 0.4 mg PO DAILY@1730 [facility] Last Admin: 06/10/18 21:01 Dose: 0.4 mg Zinc Sulfate (Zinc Sulfate) 220 mg PO DAILY [facility] Last Admin: 06/11/18 08:05 Dose: 220 mg Medical Necessity - Tobacco Use Smoking Status: Heavy Smoker (>10/day) - 1 pack per day Tobacco Use: Cigarettes Assessment/Plan All Active Problems Gangrene (Acute) Severe sepsis (Acute) 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 Sepsis due to Osteomyelitis of the right foot. * is s/p I&D. Today is POD 4. Cultures were positive for Proteus vulgaris, MSSA < Strep Intermedius and gram negative krystin which is pending review. * SIRS criteria today is 3/4 * repeat cultures from 06/09/18 are ending * has a mild feer with Temp of 99.4F today * on zosyn * podiatry on board. Due to go for repeat surgery possibly on Wednesday * ID also on board * 2. Diabetes mellitus with neuropathy * on lantus 10IU qhs and ISS * accuchecks ACHS. * home meds of insulin and glimepiride on hold 3. Afib * admitted in RVR; now rate controlled * on atenolol. Atenolol dose decreased due to hypotension * on amiodaron nad atenolol. coumadin on hold due to surgery * 4. 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 Remote CVA with left sided hemiparesis: stable. on statin, aspirin. 6 Bilateral decubitus ulcers: stable. 7. PUlmonary hypertension per Echo: PA pressure is 67, up from 51 in 2013. To optimise heart function to help with pulmonary hypertension 8. Anemia * s/p transfusion of 2 units of PRBCs. Hb today * iron studies showed iron deficiency anemia * will monitor * 9. Suspected Autoimmune disease: has negative RA titre. other autoimmune workup pending. Will monitor 10. DVT prophylaxis: heparin. coumadin on hold due to surgery Code Visit Inpatient E&M: [id number] [facility] Hosp L3
--- NOTE | 2018-06-11 14:10 | NURSING ---
Dr Gruber in at this time. Changed dressings to BLE with assist x2 RN. states she will be back 06/12.
--- NOTE | 2018-06-11 14:22 | PCM.PROGNOTE ---
Patient Problems: Active and Suspected Problems Gangrene (Acute) Severe sepsis (Acute) Osteomyelitis (Suspected) PVD (peripheral vascular disease) (Suspected) 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) BPH (benign prostatic hyperplasia) (Suspected) Abscess of left leg (Acute) Ulcer of right lower extremity with fat layer exposed (Acute) Ulcer of left lower extremity with fat layer exposed (Acute) Vasculitic ulcer of lower extremity (Suspected) Subjective: This 63-year-old male with multiple comorbidities was seen bedside postoperative day #1 right leg and ankle incision and drainage with fasciotomies, third ray resection of the right foot, left leg abscess incision and drainage, and debridement of bilateral circumferential leg ulcers. He denies fever, chill, nausea, vomiting, shortness of breath, chest pain. His feet and legs do not hurt at rest however he does report discomfort with direct touch during dressing change. His is bedside. - Physical Exam General: Alert, Oriented x3, Cooperative Extremities: No cyanosis, Capillary Refill Less than 3 Seconds, No Calf Tenderness - Negative Lobato and Errol sign bilateral, Diminished Peripheral Pulses, Edema - decreased right foot Skin: Ulcer/ Wound - The widespread plantar right foot incision extends along the medial ankle into the leg with deeper fasciotomy to the posterior medial and posterior compartment does not have purulence on expression in the deep packing was left intact to control hemostasis. There is no odor. Redness has resolved. The posterior leg with fasciotomy into the the gastrocsoleus complex and deeper leg compartment was also evaluated the packing was pulled without any odor or purulence on expression noted (right). The open right third ray resection site also does not have any further purulence or necrosis noted there is no active hematogenous drainage. There is granular fibrous wound base noted and no duskiness. The skin adjacent to the large incision site is slightly macerated. The left leg incision and drainage site does not have any purulence odor or redness or necrosis on expression. This is tender to touch. The area to the left posterior central and distal Achilles center there is previous devitalized necrotic Achilles is now resolved with only granular base healthy white tended wound bed. The remaining bilateral leg wounds have over 90% pale granular base with reduced peripheral skin peeling noted. The plantar left heel ulcer also does not have any purulence or redness. This bases mainly fibrotic., - - The leg ulcers are nearly circumferential. He also has bilateral knee ulcers that appear to be superficial and are to the patellar region. Musculoskeletal: No Tenderness to Palpation of Joints or Extremities, Muscle Wasting, - - Very slight ankle sagittal range of motion passive and active noted. No knee contracture noted Neurological: - - Altered light touch sensation Psych/Mental Status: Normal Affect, Appropriate Vital Signs Temp Pulse Resp BP Pulse Ox 99.4 F H 89 20 H 99/67 92 06/11/18 12:00 06/11/18 12:00 06/11/18 12:00 06/11/18 12:00 06/11/18 12:00 Oxygen Flow Rate (L/min) 3 Oxygen Delivery Method Nasal Cannula Weight: 112.264 kg Body Mass Index (BMI) 29.9 Finger Stick Blood Glucose 155 Intake and Output for Last 24 Hours 06/09/18 06/10/18 06/11/18 23:59 23:59 23:59 Intake Total 3297.6 / 3297.6 3109.4 / 3109.4 1999 / 1999 Output Total 1000 / 1000 925 / 925 725 / 725 Balance 2297.6 / 2297.6 2184.4 / 2184.4 1275 / 1275 Microbiology Past 72 Hours 06/10/18 17:11 Gram Stain - Final Biopsy - Leg, Left Wound Culture - Preliminary Gram negative krystin 06/07/18 12:50 Gram Stain - Final Wound Abcess - Right Foot Wound Culture - Final Proteus vulgaris Staphylococcus aureus Anaerobic Culture - Final Presumptive B. fragilis group Anaerobic cocci 06/08/18 Unknown Gram Stain - Final Wound - Other Wound Culture - Preliminary Proteus vulgaris Staphylococcus aureus Gram negative krystin Anaerobic Culture - Preliminary Checking for anaerobes, further studies to follow. Laboratory Tests Past 24 Hrs 06/09/18 06/10/18 06/11/18 17:32 23:09 06:40 WBC RBC Hgb Hct MCV MCH MCHC RDW RDW Differential Plt Count MPV Immature Gran % (Auto) Neut % (Auto) Lymph % (Auto) [place] % (Auto) Eos % (Auto) Baso % (Auto) Absolute Neuts (auto) Absolute Lymphs (auto) Total Counted PT 17.9 H INR 1.5 Specimen Type ART Sample Site R Radial pH 7.40 Bicarbonate Actual 20.4 L POC Total CO2 21 Base Excess -4 L O2 Saturation 95 ABG pCO2 32.9 L ABG pO2 75 O2 Delivery Device Nasal Can Liter Flow 5.0 Blood Gas Notified Whom [facility] Blood Gas Notified Time 2302 Sodium Potassium Chloride Carbon Dioxide Anion Gap BUN Creatinine Estim Creat Clear Calc Est GFR (MDRD) Af Amer Est GFR (MDRD) Non-Af BUN/Creatinine Ratio Glucose Calcium Phosphorus Magnesium Total Bilirubin AST ALT Alkaline Phosphatase Total Protein Albumin Globulin Albumin/Globulin Ratio Crossmatch See Detail 06/11/18 06/11/18 06:40 06:40 WBC 16.3 H RBC 2.68 L Hgb 7.7 L Hct 24.5 L MCV 91.4 MCH 28.7 MCHC 31.4 L RDW 18.8 H RDW Differential 62.5 H Plt Count 220 MPV 10.6 Immature Gran % (Auto) 0.200 Neut % (Auto) 90.0 H Lymph % (Auto) 4.6 L [place] % (Auto) 5.0 Eos % (Auto) 0.1 Baso % (Auto) 0.1 Absolute Neuts (auto) 14.6 H Absolute Lymphs (auto) 0.75 L Total Counted Not Reportable PT INR Specimen Type Sample Site pH Bicarbonate Actual POC Total CO2 Base Excess O2 Saturation ABG pCO2 ABG pO2 O2 Delivery Device Liter Flow Blood Gas Notified Whom Blood Gas Notified Time Sodium 137 Potassium 4.1 Chloride 107 Carbon Dioxide 18.0 L Anion Gap 12 BUN 41 H Creatinine 1.31 H Estim Creat Clear Calc 66.23 Est GFR (MDRD) Af Amer 71 Est GFR (MDRD) Non-Af 59 L BUN/Creatinine Ratio 31.3 H Glucose 165 H Calcium 7.8 L Phosphorus 3.4 Magnesium 2.1 Total Bilirubin 2.60 H AST 17 ALT 17 Alkaline Phosphatase 224 H Total Protein 5.5 L Albumin 1.8 L Globulin 3.7 Albumin/Globulin Ratio 0.5 L Crossmatch POC Glucose 06/11/18 06/11/18 06/10/18 11:34 06:43 20:20 POC Glucose 261 H 174 H 130 H 06/10/18 18:59 POC Glucose 155 H Medical Necessity - Tobacco Use Smoking Status: Heavy Smoker (>10/day) - 1 pack per day Tobacco Use: Cigarettes Assessment/Plan All Active Problems Gangrene (Acute) Severe sepsis (Acute) 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) Abscess of left leg (Acute) Ulcer of right lower extremity with fat layer exposed (Acute) Ulcer of left lower extremity with fat layer exposed (Acute) -Right foot ulcer with septic joint and osteomyelitis and abscess; postoperative day #1 open second and third ray resections with widespread incision and drainage of the foot, ankle and leg including fasciotomies -Bilateral large leg wounds with subcutaneous tissue exposed right and subcutaneous and Achilles and gastrocnemius tissue exposed left -Left leg incision and drainage POD #1 for treatment of abscess to the posterior medial leg -s/p punch biopsy of leg ulcer vasculitis tissue, right -Diabetes with neuropathy -Malnutrition -Peripheral vascular disease -Vasculitis / raynauds -Connective tissue disorder suspected -Lower extremity edema -Delayed healing -Multiple other comorbidities and risk for limb loss The case was discussed with the patient and his . Bilateral limbs dressings were changed. Additional copious saline irrigation will be performed tomorrow. There is no active bleeding noted. Additional gauze Adaptic ABD pads Kerlix and Joao wraps were reapplied. His intraoperative pathology and microbiology culture results are pending. So far there is gram-negative krystin, Proteus vulgaris, Staphylococcus aureus growth. His postoperative right foot x-rays demonstrate additional third ray resection. There are no acute injuries or foreign body. He continues on IV antibiotics and infectious disease consultation is greatly appreciated. He understands additional debridement and drainage and wound debridement to bilateral lower extremities including amputations are expected. He understands he is at risk for limb loss and his healing process will be complicated. He also had a noninvasive vascular studies performed with right naman 1.4 and left of 1.13 to the right and left limbs respectively. He has monophasic DP waveforms and there are no segmental pressures recorded proximal to the ankle level to evaluate for suspected blockage. His movement during the exam and a-fib have contributed to an incomplete study. Vascular surgery consultation is appreciated and an arterial Doppler was recommended. He demonstrates other systemic signs of vasculitis and given his intense infections distal vasculature spasms may be a part of his presentation. He did have a dopplerable PT artery pulse intraoperative yesterday at the level of the ankle without distinct foot branches audible. A punch biopsy was also obtained of the right leg to further work this up in the result is pending. He understands he is at risk for limb loss and his surgical intervention will be staged. Smoking cessation was advised. Medical management, DVT prophylaxis, and pain management per primary team is appreciated. Please do not hesitate to call if you have any questions. I will continue to follow him close while in house. Izzy Gruber DPM, FACFAS [facility] [phone]
--- NOTE | 2018-06-11 14:32 | PN_ITS ---
Patient Problems: Active and Suspected Problems Gangrene (Acute) Severe sepsis (Acute) Osteomyelitis (Suspected) PVD (peripheral vascular disease) (Suspected) 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) BPH (benign prostatic hyperplasia) (Suspected) Abscess of left leg (Acute) Ulcer of right lower extremity with fat layer exposed (Acute) Ulcer of left lower extremity with fat layer exposed (Acute) Vasculitic ulcer of lower extremity (Suspected) Subjective: This 63-year-old male with multiple comorbidities was seen bedside postoperative day #1 right leg and ankle incision and drainage with fasciotomies , third ray resection of the right foot, left leg abscess incision and drainage , and debridement of bilateral circumferential leg ulcers. He denies fever, chill, nausea, vomiting, shortness of breath, chest pain. His feet and legs do not hurt at rest however he does report discomfort with direct touch during dressing change. His is bedside. - Physical Exam General: Alert, Oriented x3, Cooperative Extremities: No cyanosis, Capillary Refill Less than 3 Seconds, No Calf Tenderness - Negative Lobato and Errol sign bilateral, Diminished Peripheral Pulses, Edema - decreased right foot Skin: Ulcer/ Wound - The widespread plantar right foot incision extends along the medial ankle into the leg with deeper fasciotomy to the posterior medial and posterior compartment does not have purulence on expression in the deep packing was left intact to control hemostasis. There is no odor. Redness has resolved. The posterior leg with fasciotomy into the the gastrocsoleus complex and deeper leg compartment was also evaluated the packing was pulled without any odor or purulence on expression noted (right). The open right third ray resection site also does not have any further purulence or necrosis noted there is no active hematogenous drainage. There is granular fibrous wound base noted and no duskiness. The skin adjacent to the large incision site is slightly macerated. The left leg incision and drainage site does not have any purulence odor or redness or necrosis on expression. This is tender to touch. The area to the left posterior central and distal Achilles center there is previous devitalized necrotic Achilles is now resolved with only granular base healthy white tended wound bed. The remaining bilateral leg wounds have over 90% pale granular base with reduced peripheral skin peeling noted. The plantar left heel ulcer also does not have any purulence or redness. This bases mainly fibrotic., - - The leg ulcers are nearly circumferential. He also has bilateral knee ulcers that appear to be superficial and are to the patellar region. Musculoskeletal: No Tenderness to Palpation of Joints or Extremities, Muscle Wasting, - - Very slight ankle sagittal range of motion passive and active noted. No knee contracture noted Neurological: - - Altered light touch sensation Psych/Mental Status: Normal Affect, Appropriate Vital Signs Temp Pulse Resp BP Pulse Ox 99.4 F H 89 20 H 99/67 92 06/11/18 12:00 06/11/18 12:00 06/11/18 12:00 06/11/18 12:00 06/11/18 12:00 Oxygen Flow Rate (L/min) 3 Oxygen Delivery Method Nasal Cannula Weight: 112.264 kg Body Mass Index (BMI) 29.9 Finger Stick Blood Glucose 155 Intake and Output for Last 24 Hours 06/09/18 06/10/18 06/11/18 23:59 23:59 23:59 Intake Total 3297.6 / 3297.6 3109.4 / 3109.4 1999 / 1999 Output Total 1000 / 1000 925 / 925 725 / 725 Balance 2297.6 / 2297.6 2184.4 / 2184.4 1275 / 1275 Microbiology Past 72 Hours 06/10/18 17:11 Gram Stain - Final Biopsy - Leg, Left Wound Culture - Preliminary Gram negative krystin 06/07/18 12:50 Gram Stain - Final Wound Abcess - Right Foot Wound Culture - Final Proteus vulgaris Staphylococcus aureus Anaerobic Culture - Final Presumptive B. fragilis group Anaerobic cocci 06/08/18 Unknown Gram Stain - Final Wound - Other Wound Culture - Preliminary Proteus vulgaris Staphylococcus aureus Gram negative krystin Anaerobic Culture - Preliminary Checking for anaerobes, further studies to follow. Laboratory Tests Past 24 Hrs 06/09/18 06/10/18 06/11/18 17:32 23:09 06:40 WBC RBC Hgb Hct MCV MCH MCHC RDW RDW Differential Plt Count MPV Immature Gran % (Auto) Neut % (Auto) Lymph % (Auto) [place] % (Auto) Eos % (Auto) Baso % (Auto) Absolute Neuts (auto) Absolute Lymphs (auto) Total Counted PT 17.9 H INR 1.5 Specimen Type ART Sample Site R Radial pH 7.40 Bicarbonate Actual 20.4 L POC Total CO2 21 Base Excess -4 L O2 Saturation 95 ABG pCO2 32.9 L ABG pO2 75 O2 Delivery Device Nasal Can Liter Flow 5.0 Blood Gas Notified Whom [facility] Blood Gas Notified Time 2302 Sodium Potassium Chloride Carbon Dioxide Anion Gap BUN Creatinine Estim Creat Clear Calc Est GFR (MDRD) Af Amer Est GFR (MDRD) Non-Af BUN/Creatinine Ratio Glucose Calcium Phosphorus Magnesium Total Bilirubin AST ALT Alkaline Phosphatase Total Protein Albumin Globulin Albumin/Globulin Ratio Crossmatch See Detail 06/11/18 06/11/18 06:40 06:40 WBC 16.3 H RBC 2.68 L Hgb 7.7 L Hct 24.5 L MCV 91.4 MCH 28.7 MCHC 31.4 L RDW 18.8 H RDW Differential 62.5 H Plt Count 220 MPV 10.6 Immature Gran % (Auto) 0.200 Neut % (Auto) 90.0 H Lymph % (Auto) 4.6 L [place] % (Auto) 5.0 Eos % (Auto) 0.1 Baso % (Auto) 0.1 Absolute Neuts (auto) 14.6 H Absolute Lymphs (auto) 0.75 L Total Counted Not Reportable PT INR Specimen Type Sample Site pH Bicarbonate Actual POC Total CO2 Base Excess O2 Saturation ABG pCO2 ABG pO2 O2 Delivery Device Liter Flow Blood Gas Notified Whom Blood Gas Notified Time Sodium 137 Potassium 4.1 Chloride 107 Carbon Dioxide 18.0 L Anion Gap 12 BUN 41 H Creatinine 1.31 H Estim Creat Clear Calc 66.23 Est GFR (MDRD) Af Amer 71 Est GFR (MDRD) Non-Af 59 L BUN/Creatinine Ratio 31.3 H Glucose 165 H Calcium 7.8 L Phosphorus 3.4 Magnesium 2.1 Total Bilirubin 2.60 H AST 17 ALT 17 Alkaline Phosphatase 224 H Total Protein 5.5 L Albumin 1.8 L Globulin 3.7 Albumin/Globulin Ratio 0.5 L Crossmatch POC Glucose 06/11/18 06/11/18 06/10/18 11:34 06:43 20:20 POC Glucose 261 H 174 H 130 H 06/10/18 18:59 POC Glucose 155 H Medical Necessity - Tobacco Use Smoking Status: Heavy Smoker (>10/day) - 1 pack per day Tobacco Use: Cigarettes Assessment/Plan All Active Problems Gangrene (Acute) Severe sepsis (Acute) 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) Abscess of left leg (Acute) Ulcer of right lower extremity with fat layer exposed (Acute) Ulcer of left lower extremity with fat layer exposed (Acute) -Right foot ulcer with septic joint and osteomyelitis and abscess; postoperative day #1 open second and third ray resections with widespread incision and drainage of the foot, ankle and leg including fasciotomies -Bilateral large leg wounds with subcutaneous tissue exposed right and subcutaneous and Achilles and gastrocnemius tissue exposed left -Left leg incision and drainage POD #1 for treatment of abscess to the posterior medial leg -s/p punch biopsy of leg ulcer vasculitis tissue, right -Diabetes with neuropathy -Malnutrition -Peripheral vascular disease -Vasculitis / raynauds -Connective tissue disorder suspected -Lower extremity edema -Delayed healing -Multiple other comorbidities and risk for limb loss The case was discussed with the patient and his . Bilateral limbs dressings were changed. Additional copious saline irrigation will be performed tomorrow. There is no active bleeding noted. Additional gauze Adaptic ABD pads Kerlix and Joao wraps were reapplied. His intraoperative pathology and microbiology culture results are pending. So far there is gram-negative krystin, Proteus vulgaris, Staphylococcus aureus growth. His postoperative right foot x- rays demonstrate additional third ray resection. There are no acute injuries or foreign body. He continues on IV antibiotics and infectious disease consultation is greatly appreciated. He understands additional debridement and drainage and wound debridement to bilateral lower extremities including amputations are expected. He understands he is at risk for limb loss and his healing process will be complicated. He also had a noninvasive vascular studies performed with right naman 1.4 and left of 1.13 to the right and left limbs respectively. He has monophasic DP waveforms and there are no segmental pressures recorded proximal to the ankle level to evaluate for suspected blockage. His movement during the exam and a- fib have contributed to an incomplete study. Vascular surgery consultation is appreciated and an arterial Doppler was recommended. He demonstrates other systemic signs of vasculitis and given his intense infections distal vasculature spasms may be a part of his presentation. He did have a dopplerable PT artery pulse intraoperative yesterday at the level of the ankle without distinct foot branches audible. A punch biopsy was also obtained of the right leg to further work this up in the result is pending. He understands he is at risk for limb loss and his surgical intervention will be staged. Smoking cessation was advised. Medical management, DVT prophylaxis , and pain management per primary team is appreciated. Please do not hesitate to call if you have any questions. I will continue to follow him close while in house. Izzy Gruber DPM, FACFAS [facility] [phone]
[2018-06-11 16:55] LABS: Bedside Glucose 335 mg/dL (70-110)
[2018-06-11] MEDS: Tamsulosin HCl 0.4 MG Capsule PO (17:10)
[2018-06-11 19:07] LABS: Magnesium 2.3 mg/dL (1.6-2.6)
[2018-06-11] MEDS: Heparin Injection (Vial) 5,000 UNIT/ML VIAL 5000 UNIT SC (22:07)
[2018-06-11] MEDS: Atorvastatin Calcium 10 MG Tablet PO (22:12)
[2018-06-11] MEDS: Mirtazapine 15 MG Tablet PO (22:12)
[2018-06-11 22:20] LABS: Bedside Glucose 224 mg/dL (70-110)
[2018-06-12] VITALS (19 sets, daily range): BP systolic 90–110; BP diastolic 63–68; PULSE 80–102; RESP 18–24; TEMP 36.1–36.7; O2SAT 92–99
[2018-06-12] MEDS: 0.9% Normal Saline 1,000 ML 60 ML IV ×2 (03:18→20:02)
[2018-06-12] MEDS: Heparin Injection (Vial) 5,000 UNIT/ML VIAL 5000 UNIT SC ×3 (05:36→21:17)
[2018-06-12] MEDS: Piperacil/Tazobactam 3.375 GM/50 ML ML IV ×3 (05:36→21:16)
[2018-06-12 06:55] LABS: Bedside Glucose 182 mg/dL (70-110)
[2018-06-12 06:59] LABS: International Normalized Ratio 1.5; Prothrombin Time (Protime)PT. 17.8 SECONDS (11.7-14.9)
[2018-06-12 07:13] LABS: Anion Gap 9 (5-15); BUN 43 mg/dL (7-18); BUN/Creat Ratio 32.3 RATIO (10-20); Calcium,Total 8.3 mg/dL (8.5-10.1); Chloride 110 mmol/L (98-107); Creatinine, Serum 1.33 mg/dL (0.70-1.30); EST Glomerular Filtration Rate 58 mL/min (>60); Est Glom Filt Rate - Afr Amer 70 mL/min (>60); Estimated Creatinine Clearance 65.24 ml/min; Glucose 183 mg/dL (74-106); Magnesium 2.2 mg/dL (1.6-2.6); Potassium 3.7 mmol/L (3.5-5.1); Prealbumin 6.8 mg/dL (20.0-40.0); Sodium Level 143 mmol/L (136-145)
[2018-06-12 07:16] LABS: Absolute Lymphocyte Count 0.56 X10^3/ul (0.83-4.51); Absolute Neutrophil Count 7.1 X10^3/uL (2.0-7.7); Basophil# 0.01 X10^3/uL; Basophil% 0.1 % (0-1); Eosinophil# 0.06 X10^3/uL; Eosinophils% 0.7 % (0-5); Hematocrit 24.7 % (40-54); Hemoglobin 7.6 g/dl (13.0-16.5); Lymphocyte # 0.56 X10^3/ul (4.0); Lymphocyte % 6.7 % (19-41); Mean Corp Hgb Conc 30.8 g/gl (32-36); Mean Corpuscular Volume 94.3 fL (80-94); Mean Platelet Vol. 10.9 fl (6.2-12.0); Monocyte# 0.58 X10^3/uL; Monocyte% 6.9 % (0-10); Neutrophil # 7.14 X10^3/uL (2.7-7.7); Neutrophil % 85.1 % (47-70); Platelet Count 198 K/mm3 (150-450); RBC Distribution Width CV 19.5 % (11.6-14.6); RBC Distribution Width SD 65.2 fl (35.1-43.9); Red Blood Count 2.62 M/mm3 (4.6-6.2); White Blood Count 8.4 K/mm3 (4.4-11.0)
[2018-06-12 07:17] LABS: POSITIVE COUNT NO; POSITIVE DIFFERENTIAL YES; POSITIVE MORPHOLOGY YES
[2018-06-12 07:18] LABS: Differential Indicated SCAN CRITERIA MET
[2018-06-12 08:01] LABS: Anisocytosis 2+; Hypochromasia 2+; Platelet Estimate ADEQUATE (ADEQ); Poikilocytosis 2+; Polychromasia RARE
[2018-06-12 08:02] LABS: Ovalocyte 2+
[2018-06-12] MEDS: Glimepiride 4 MG Tablet PO (08:04)
[2018-06-12] MEDS: Insulin Lispro 100 UNIT/ML INSULN.PEN SC ×3 (08:04→16:25)
[2018-06-12] MEDS: Ascorbic Acid 500 MG Tablet PO ×2 (08:05→16:25)
[2018-06-12] MEDS: oxyCODONE 5 MG Tablet PO (09:09)
[2018-06-12 09:16] LABS: AST(SGOT) 16 U/L (15-37); Alanine Aminotransfer ALT/SGPT 16 U/L (16-61); Albumin, Serum 2.1 g/dL (3.2-5.0); Alkaline Phosphatase 274 U/L (45-117); Bilirubin, Direct 1.62 mg/dL (0.00-0.30); Globulin 3.6 g/dL (2.2-4.2); Protein, Total 5.7 g/dL (6.4-8.2)
--- NOTE | 2018-06-12 09:49 | PN.CARD_ITS ---
Subjectve: Patient slowly improving this morning, much more lucid than yesterday, no confusion last evening. Telemetry shows atrial fibrillation with controlled ventricular response and 5 beat run of nonsustained ventricular tachycardia. Objective: Vital Signs Temp Pulse Resp BP Pulse Ox 97.9 F 90 20 H 90/65 97 06/12/18 07:51 06/12/18 07:54 06/12/18 07:51 06/12/18 07:51 06/12/18 07:51 Oxygen Flow Rate (L/min) 4 Oxygen Delivery Method Nasal Cannula Weight: 247 lb 7.996 oz Body Mass Index (BMI) 29.9 Finger Stick Blood Glucose 155 Intake and Output for Last 24 Hours 06/10/18 06/11/18 06/12/18 23:59 23:59 23:59 Intake Total 3109.4 / 3109.4 3178 / 3178 671 / 671 Output Total 925 / 925 1000 / 1000 600 / 600 Balance 2184.4 / 2184.4 2178 / 2178 71 / 71 General: Awake, Alert, Oriented x 3 HEENT: PERRL, EOMI, Sclera Non Icteric Neck: Supple, Good ROM, No Lymph Node Enlargement Lungs: Clear to auscultation Cardiovascular: Irregular Rhythm, Normal S1, Normal S2, No Murmurs, No Rubs, No Gallops Vascular: No Carotid Bruits, Normal Femoral Pulses, Normal Radial Pulses, Normal Dorsalis Pedal Pulse, Normal Posterior Tibial Pulses Abdomen: Bowel Sounds Present, Soft, Non Tender, No HSM, No Organomegaly Extremities: No Cyanosis, No Clubbing, No edema Neurological: No Focal Motor or Sensory Deficit 06/11/18 18:30: Magnesium 2.3 06/12/18 06:28: PT 17.8 H, INR 1.5 06/12/18 06:28: Sodium 143, Potassium 3.7, Chloride 110 H, Carbon Dioxide 24.0, Anion Gap 9, BUN 43 H, Creatinine 1.33 H, Est GFR (MDRD) Af Amer 70, Est GFR ( MDRD) Non-Af 58 L, BUN/Creatinine Ratio 32.3 H, Glucose 183 H, Calcium 8.3 L, Magnesium 2.2 06/12/18 06:28: WBC 8.4, RBC 2.62 L, Hgb 7.6 L, Hct 24.7 L, MCV 94.3 H, MCH 29.0 , MCHC 30.8 L, RDW 19.5 H, RDW Differential 65.2 H, Plt Count 198, MPV 10.9, Immature Gran % (Auto) 0.500, Neut % (Auto) 85.1 H, Lymph % (Auto) 6.7 L, [place] % (Auto) 6.9, Eos % (Auto) 0.7, Baso % (Auto) 0.1, Absolute Neuts (auto) 7.1, Total Counted Not Reportable 06/12/18 06:28: Total Bilirubin 2.10 H, Direct Bilirubin 1.62 H Rhythm: EKG: ECHO: Stress Test: Cardiac Cath: PCI: CT Surgery: Holter monitor: EPS: PPM: CXR: Chest CT Scan: Medical Necessity - Tobacco Use Smoking Status: Heavy Smoker (>10/day) - 1 pack per day Tobacco Use: Cigarettes Assessment/Plan 1. Atrial fibrillation: Patient has chronic atrial fibrillation over the last 5 years and is on chronic Coumadin therapy. His INR is 1.5 today. He underwent vitamin K assisted Coumadin reversal in order to perform operative debridement of his right lower extremity osteomyelitis. Patient is doing fairly well from a medical standpoint although he did have some confusion last evening. He appears to be lucid this morning and answers questions appropriately. His heart rate and blood pressure fairly well controlled on current dose of atenolol and diltiazem. Would recommend holding Coumadin therapy until the wound healing has begun to avoid chronic oozing from his wound sites. In the meantime would recommend subcu Lovenox 5000 units twice daily for DVT prophylaxis given his atrial fibrillation and severe pulmonary hypertension. Patient is at high risk for DVT and pulmonary embolism. Once his wounds have demonstrated adequate healing, with switch him back to Coumadin to maintain an INR between 2.0 and 3.0. In addition the patient had a 5 beat run of nonsustained ventricular tachycardia. His potassium is being replaced. He is currently on amiodarone therapy, beta-dilia and diltiazem. His heart rate is well controlled. Continue present management. 2. Pulmonary hypertension: The patient has long-standing atrial fibrillation and severe pulmonary hypertension most likely a result of his mitral regurgitation. Patient will require lifelong anticoagulation and diuretic therapy. His LVEF is about 50%. Patient's stress test was canceled in order to expedite debridement of his lower extremities. Once the patient has healed I would recommend a noninvasive nuclear stress test to evaluate for possible ischemia. If this is grossly abnormal for ischemia he may require diagnostic coronary angiogram, probably preferably through the right radial approach given his lower extremity peripheral vascular disease. 3. Thank you very much for the opportunity to put dissipate in the cardiac care of your patient. Code Visit Inpatient E&M: 56696 Subs Hosp L2
[2018-06-12] MEDS: Docusate Sodium 100 MG Capsule PO ×2 (11:12→21:17)
[2018-06-12] MEDS: dilTIAZem CD 120 MG Capsule PO ×2 (11:12→21:17)
[2018-06-12] MEDS: Amiodarone 200 MG Tablet PO (11:12)
[2018-06-12] MEDS: Aspirin E.C. 81 MG Tablet PO (11:12)
[2018-06-12] MEDS: Collagenase 30gm Tube 1 APPLIC TOPICAL (11:13)
[2018-06-12] MEDS: Atenolol 25 MG Tablet PO ×2 (11:14→21:16)
[2018-06-12] MEDS: Lisinopril 40 MG Tablet PO (11:15)
[2018-06-12 11:30] LABS: Bedside Glucose 226 mg/dL (70-110)
--- NOTE | 2018-06-12 11:33 | PCM.PROGNOTE ---
Patient Problems: Active and Suspected Problems Gangrene (Acute) Severe sepsis (Acute) Osteomyelitis (Suspected) PVD (peripheral vascular disease) (Suspected) 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) BPH (benign prostatic hyperplasia) (Suspected) Abscess of left leg (Acute) Ulcer of right lower extremity with fat layer exposed (Acute) Ulcer of left lower extremity with fat layer exposed (Acute) Vasculitic ulcer of lower extremity (Suspected) Subjective: This 63-year-old male with multiple comorbidities was seen bedside postoperative day #2 right leg and ankle incision and drainage with fasciotomies, third/second ray resection of the right foot, left leg abscess incision and drainage, and debridement of bilateral circumferential leg ulcers. He denies fever, chill, nausea, vomiting, shortness of breath, chest pain. He has many questions today about amputation and his ongoing treatment plan. His is bedside. He reports he was previously ambulating very short distances at home prior to this illness with the wheelchair and walker. His helps him with most of his other daily living activities at home. He is eager to return home. - Physical Exam General: Alert, Oriented x3, Cooperative Extremities: Diminished Peripheral Pulses - Nonpalpable PT and DP pulses bilateral, Edema, Tenderness - Pain with wound and Manipulation bilateral, - - Reduced capillary time right foot to toes Skin: Ulcer/ Wound - The fasciotomy and I&D sites demonstrate fibrous and granular tissue. The order has significantly reduced and there is no gayatri purulence on expression. Maceration is decreased. The wound beds to the legs are also fibrous and bone. There is no longer any exposed necrotic Achilles or gastrocnemius muscle to the left lower extremity. His skin is very atrophic and hairless. Musculoskeletal: No Tenderness to Palpation of Joints or Extremities, Muscle Wasting, - - Open second and third ray resections right foot Neurological: - - Lack of sensation light touch bilateral lower extremities Psych/Mental Status: Normal Affect, Appropriate Vital Signs Temp Pulse Resp BP Pulse Ox 97.8 F 90 20 H 101/67 95 06/12/18 10:00 06/12/18 10:00 06/12/18 10:00 06/12/18 10:06/12/18 10:00 Oxygen Flow Rate (L/min) 4 Oxygen Delivery Method Nasal Cannula Weight: 112.264 kg Body Mass Index (BMI) 29.9 Finger Stick Blood Glucose 155 Intake and Output for Last 24 Hours 06/10/18 06/11/18 06/12/18 23:59 23:59 23:59 Intake Total 3109.4 / 3109.4 3178 / 3178 1671 / 1671 Output Total 925 / 925 1000 / 1000 900 / 900 Balance 2184.4 / 2184.4 2178 / 2178 771 / 771 Microbiology Past 72 Hours 06/10/18 17:11 Gram Stain - Final Biopsy - Leg, Left Wound Culture - Preliminary Proteus vulgaris Staphylococcus species 06/08/18 Unknown Gram Stain - Final Wound - Other Wound Culture - Final Proteus vulgaris Staphylococcus aureus Pasteurella multocida Anaerobic Culture - Preliminary Checking for anaerobes, further studies to follow. 06/09/18 17:32 Blood Culture - Preliminary Blood Culture (Wb) - Right Hand No growth in 48 hours. 06/07/18 12:50 Gram Stain - Final Wound Abcess - Right Foot Wound Culture - Final Proteus vulgaris Staphylococcus aureus Anaerobic Culture - Final Presumptive B. fragilis group Anaerobic cocci Laboratory Tests Past 24 Hrs 06/11/18 06/12/18 06/12/18 18:30 06:28 06:28 WBC RBC Hgb Hct MCV MCH MCHC RDW RDW Differential Plt Count MPV Immature Gran % (Auto) Neut % (Auto) Lymph % (Auto) Williams % (Auto) Eos % (Auto) Baso % (Auto) Absolute Neuts (auto) Absolute Lymphs (auto) Total Counted Diff Path Review Platelet Estimate Polychromasia Hypochromasia Poikilocytosis Anisocytosis Ovalocytes PT 17.8 H INR 1.5 Sodium 143 Potassium 3.7 Chloride 110 H Carbon Dioxide 24.0 Anion Gap 9 BUN 43 H Creatinine 1.33 H Estim Creat Clear Calc 65.24 Est GFR (MDRD) Af Amer 70 Est GFR (MDRD) Non-Af 58 L BUN/Creatinine Ratio 32.3 H Glucose 183 H Calcium 8.3 L Magnesium 2.3 2.2 Total Bilirubin Direct Bilirubin AST ALT Alkaline Phosphatase Total Protein Albumin Globulin Prealbumin 6.8 L 06/12/18 06/12/18 06:28 06:28 WBC 8.4 RBC 2.62 L Hgb 7.6 L Hct 24.7 L MCV 94.3 H MCH 29.0 MCHC 30.8 L RDW 19.5 H RDW Differential 65.2 H Plt Count 198 MPV 10.9 Immature Gran % (Auto) 0.500 Neut % (Auto) 85.1 H Lymph % (Auto) 6.7 L Williams % (Auto) 6.9 Eos % (Auto) 0.7 Baso % (Auto) 0.1 Absolute Neuts (auto) 7.1 Absolute Lymphs (auto) 0.56 L Total Counted Not Reportable Diff Path Review May foll Platelet Estimate ADEQUATE Polychromasia RARE Hypochromasia 2+ Poikilocytosis 2+ Anisocytosis 2+ Ovalocytes 2+ PT INR Sodium Potassium Chloride Carbon Dioxide Anion Gap BUN Creatinine Estim Creat Clear Calc Est GFR (MDRD) Af Amer Est GFR (MDRD) Non-Af BUN/Creatinine Ratio Glucose Calcium Magnesium Total Bilirubin 2.10 H Direct Bilirubin 1.62 H AST 16 ALT 16 Alkaline Phosphatase 274 H Total Protein 5.7 L Albumin 2.1 L Globulin 3.6 Prealbumin POC Glucose 06/12/18 06/12/18 06/11/18 11:10 06:48 22:04 POC Glucose 226 H 182 H 224 H 06/11/18 06/11/18 16:38 11:34 POC Glucose 335 H 261 H Medical Necessity - Tobacco Use Smoking Status: Heavy Smoker (>10/day) - 1 pack per day Tobacco Use: Cigarettes Assessment/Plan All Active Problems Gangrene (Acute) Severe sepsis (Acute) 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) Abscess of left leg (Acute) Ulcer of right lower extremity with fat layer exposed (Acute) Ulcer of left lower extremity with fat layer exposed (Acute) -Right foot ulcer with septic joint and osteomyelitis and abscess; postoperative day #2 open second and third ray resections with widespread incision and drainage of the foot, ankle and leg including fasciotomies -Bilateral large leg wounds with subcutaneous tissue exposed right and subcutaneous and Achilles and gastrocnemius tissue exposed left -Left leg incision and drainage POD #2 for treatment of abscess to the posterior medial leg -s/p punch biopsy of leg ulcer vasculitis tissue, right -Diabetes with neuropathy -Malnutrition -Peripheral vascular disease -Vasculitis / raynauds -Connective tissue disorder suspected -Lower extremity edema -Delayed healing -Multiple other comorbidities and risk for limb loss The case was discussed with the patient and his . Bilateral limbs dressings were changed and copious bulb syringe saline irrigation was performed. There is no active bleeding or purulence on expression noted. The goal of leg stabilization and sepsis resolution is gone well so far. Betadine soaked gauze were packed deep into the fasciotomy and drainage sites. Additional gauze, Adaptic ABD pads, Kerlix, and Joao wraps were reapplied. His intraoperative pathology and microbiology culture results are pending. So far there is gram-negative krystin, Proteus vulgaris, Staphylococcus aureus growth. He continues on IV antibiotics and infectious disease consultation is greatly appreciated. He understands additional debridement and drainage and wound debridement to bilateral lower extremities including amputations are expected. Definitive amputation will be considered once he is more medically stable. He understands he is at risk for limb loss and his healing process will be complicated. He previously ambulated home with a walker and wheelchair. He has many questions today about healing time for amputation versus other options. The recovery time and requirement seem to be more appropriate at this time particularly for the right lower extremity. He also had a noninvasive vascular studies performed with right naman 1.4 and left of 1.13 to the right and left limbs respectively. He has monophasic DP waveforms and there are no segmental pressures recorded proximal to the ankle level to evaluate for suspected blockage. His movement during the exam and a-fib have contributed to an incomplete study. Vascular surgery consultation is appreciated and an arterial Doppler was recommended. He demonstrates other systemic signs of vasculitis and given his intense infections distal vasculature spasms may be a part of his presentation. A punch biopsy was also obtained of the right leg to further work this up in the result is pending. He understands he is at risk for limb loss and his surgical intervention will be staged. The benefits and recovery time and management were discussed in detail today. Smoking cessation was advised. Medical management, DVT prophylaxis, and pain management per primary team is appreciated. Please do not hesitate to call if you have any questions. The podiatry team will continue to follow him close while in house. Izzy Gruber DPM, [facility] [phone]
--- NOTE | 2018-06-12 13:09 | PCM.PN.HOSP ---
Patient Problems: Active and Suspected Problems Gangrene (Acute) Severe sepsis (Acute) Osteomyelitis (Suspected) PVD (peripheral vascular disease) (Suspected) 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) BPH (benign prostatic hyperplasia) (Suspected) Abscess of left leg (Acute) Ulcer of right lower extremity with fat layer exposed (Acute) Ulcer of left lower extremity with fat layer exposed (Acute) Vasculitic ulcer of lower extremity (Suspected) Subjective: He is a 63-year-old male was admitted via the ED on 05/28/2018 with a complaint of fever and chills and extensive ulcerations on both lower extremities. He is been managed for still myelitis of the right foot with severe cellulitis. He had surgery by podiatry on 06/08/2018 and had I&D and second ray amputation and extensive debridement of devitalized tissue. There was also copious pus. MRI of the left lower extremity on 06/09/2018 showed a large abscess. He is currently being worked up for possible autoimmune disease that may be causing the vasculitis as he has a butterfly rash with 3 notes as well as many chronic nonhealing wounds distal to the knees bilaterally. He also had A. fib with RVR on admission which is now controlled with Cardizem, atenolol and amiodarone. Podiatry and cardiology on board. Patient seen and examined. He was sitting up in bed with his by his side. He had a good night. He denied any palpitations or dizziness. Pain in feet is well controlled. Denies any chest pain, abdominal pain diarrhea vomiting. Review of systems otherwise negative. He is awaiting for the possible surgery by podiatry. Vitals/I&O's: Vital Signs Temp Pulse Resp BP Pulse Ox 97.8 F 90 20 H 101/67 95 06/12/18 10:00 06/12/18 11:00 06/12/18 10:00 06/12/18 10:00 06/12/18 10:00 Oxygen Flow Rate (L/min) 4 Oxygen Delivery Method Nasal Cannula Weight: 247 lb 7.996 oz Body Mass Index (BMI) 29.9 Finger Stick Blood Glucose 155 Intake and Output for Last 24 Hours 06/10/18 06/11/18 06/12/18 23:59 23:59 23:59 Intake Total 3109.4 / 3109.4 3178 / 3178 1671 / 1671 Output Total 925 / 925 1000 / 1000 900 / 900 Balance 2184.4 / 2184.4 2178 / 2178 771 / 771 General: Alert, Oriented x3, Cooperative, No apparent distress HEENT: Atraumatic, PERRLA, EOMI, Normocephalic Oral: Moist Mucosa Neck: Supple, No JVD, Negative Carotid Bruits Lungs: Clear to auscultation, Normal air movement, No rhonchi, No wheeze Cardiovascular: Regular rate, Regular Rhythm, Normal S1, Normal S2, No murmurs Abdomen: Bowel Sounds Present, Soft, Non Tender, Non-Distended, No Hepato-splenomegaly Extremities: - - Lower extremities wrapped in Joao bandage. Skin: - - Erythematous papular rash over both cheeks bilaterally. Musculoskeletal: No Tenderness to Palpation of Joints or Extremities Lymphatic: No Cervical, Supraclavicular, or Inguinal Adenopathy Neurological: Cranial nerves II-XII grossly intact Psych/Mental Status: Normal Affect, Appropriate, Alert and oriented to time, place, person, mood and affect Microbiology Past 72 Hours 06/10/18 17:11 Biopsy - Leg, Left Gram Stain - Final 06/10/18 17:11 Biopsy - Leg, Left Wound Culture - Preliminary Proteus vulgaris Staphylococcus species 06/08/18 Unknown Wound - Other Gram Stain - Final 06/08/18 Unknown Wound - Other Wound Culture - Final Proteus vulgaris Staphylococcus aureus Pasteurella multocida 06/08/18 Unknown Wound - Other Anaerobic Culture - Preliminary Checking for anaerobes, further studies to follow. 06/09/18 17:32 Blood Culture (Wb) - Right Hand Blood Culture - Preliminary No growth in 48 hours. 06/07/18 12:50 Wound Abcess - Right Foot Gram Stain - Final 06/07/18 12:50 Wound Abcess - Right Foot Wound Culture - Final Proteus vulgaris Staphylococcus aureus 06/07/18 12:50 Wound Abcess - Right Foot Anaerobic Culture - Final Presumptive B. fragilis group Anaerobic cocci Laboratory Results 06/11/18 16:38: POC Glucose 335 H 06/11/18 18:30: Magnesium 2.3 06/11/18 22:04: POC Glucose 224 H 06/12/18 06:28: PT 17.8 H, INR 1.5 06/12/18 06:28: Sodium 143, Potassium 3.7, Chloride 110 H, Carbon Dioxide 24.0, Anion Gap 9, BUN 43 H, Creatinine 1.33 H, Estim Creat Clear Calc 65.24, Est GFR (MDRD) Af Amer 70, Est GFR (MDRD) Non-Af 58 L, BUN/Creatinine Ratio 32.3 H, Glucose 183 H, Calcium 8.3 L, Magnesium 2.2, Prealbumin 6.8 L 06/12/18 06:28: WBC 8.4, RBC 2.62 L, Hgb 7.6 L, Hct 24.7 L, MCV 94.3 H, MCH 29.0, MCHC 30.8 L, RDW 19.5 H, RDW Differential 65.2 H, Plt Count 198, MPV 10.9, Immature Gran % (Auto) 0.500, Neut % (Auto) 85.1 H, Lymph % (Auto) 6.7 L, [place] % (Auto) 6.9, Eos % (Auto) 0.7, Baso % (Auto) 0.1, Absolute Neuts (auto) 7.1, Absolute Lymphs (auto) 0.56 L, Total Counted Not Reportable, Diff Path Review May foll, Platelet Estimate ADEQUATE, Polychromasia RARE, Hypochromasia 2+, Poikilocytosis 2+, Anisocytosis 2+, Ovalocytes 2+ 06/12/18 06:28: Total Bilirubin 2.10 H, Direct Bilirubin 1.62 H, AST 16, ALT 16, Alkaline Phosphatase 274 H, Total Protein 5.7 L, Albumin 2.1 L, Globulin 3.6 06/12/18 06:48: POC Glucose 182 H 06/12/18 11:10: POC Glucose 226 H Diagnostic Data Tibia/Fibula X-Ray 06/07/18 05:00 IMPRESSION: Extensive soft tissue infection of the leg and ankle. Electronically Signed: Delilah Brady MD at 9:01 EDT , Service support , Lower Extremity MRI 06/09/18 11:40 IMPRESSION: No MRI evidence of osteomyelitis. Soft tissue wound with abscess. Electronically Signed: Tony Paulino MD at 15:45 EDT , Service support , Chest X-Ray 06/09/18 17:35 IMPRESSION: No change. No acute chest disease. Moderate cardiomegaly. Electronically Signed: Renny Henriquez MD at 20:57 EDT , Service support , Foot X-Ray 06/11/18 09:00 IMPRESSION: Status post amputation of the right second and third toes at the level of the mid metatarsal. Soft tissue swelling. No acute fracture or dislocation. Electronically Signed: Christofer Marx at 9:46 EDT Tel , Service support , Current Medications Acetaminophen (Tylenol) 650 mg PO Q6H PRN PRN PRN Reason: PAIN Amiodarone HCl (Cordarone) 200 mg PO DAILY [facility] Last Admin: 06/12/18 11:12 Dose: 200 mg [facility] Last Admin: 06/12/18 08:05 Dose: 500 mg Aspirin (Ecotrin) 81 mg PO DAILY [facility] Last Admin: 06/12/18 11:12 Dose: 81 mg Atenolol (Tenormin (Beta Mikie)) 25 mg PO BID [facility] Last Admin: 06/12/18 11:14 Dose: 25 mg Atorvastatin Calcium (Lipitor) 10 mg PO QHS [facility] Last Admin: 06/11/18 22:12 Dose: 10 mg Cholecalciferol (Vitamin D) 1,000 unit PO DAILY [facility] Last Admin: 06/12/18 11:14 Dose: 1,000 unit Collagenase (Santyl) 1 applic TOPICAL DAILY [facility] PRN Reason: Protocol Last Admin: 06/12/18 11:13 Dose: 1 applicatio Diltiazem HCl (Cardizem Cd) 120 mg PO BID [facility] Last Admin: 06/12/18 11:12 Dose: 120 mg Docusate Sodium (Colace) 100 mg PO BID [facility] Last Admin: 06/12/18 11:12 Dose: 100 mg [facility]Amaryl) [facility] Last Admin: 06/12/18 08:04 Dose: 4 mg Heparin Sodium (Porcine) (Heparin Na) 5,000 unit SC Q8 [facility] Last Admin: 06/12/18 05:36 Dose: 5,000 unit Sodium Chloride () 1,000 mls @ 60 mls/hr IV .[id number] [facility] Last Admin: 06/12/18 03:18 Dose: 60 mls/hr Piperacillin Sod/Tazobactam Sod (Zosyn) 3.375 gm in 50 mls @ 12.5 mls/hr IV Q8 [facility] Last Admin: 06/12/18 05:36 Dose: 12.5 mls/hr Insulin Glargine (Lantus (Bkc)) 10 units SC QHS [facility] Last Admin: 06/11/18 22:08 Dose: 10 unit Insulin Human Lispro (Humalog Kwikpen (Bkc)) 0 unit SC TIDAC [facility] PRN Reason: Protocol Last Admin: 06/12/18 11:15 Dose: 4 units Lisinopril (Zestril) 40 mg PO DAILY [facility] Last Admin: 06/12/18 11:15 Dose: 40 mg Magnesium Hydroxide (Milk Of Magnesia) 30 ml PO DAILY PRN PRN Reason: Constipation Mirtazapine (Remeron) 15 mg PO QHS [facility] Last Admin: 06/11/18 22:12 Dose: 15 mg Nicotine (Nicoderm Cq (Pbkc)) 21 mg TRANSDERM. DAILY [facility] Last Admin: 06/12/18 11:12 Dose: 21 mg Nutritional Formula (Juan - Treasure Flavor) [facility] Last Admin: 06/12/18 08:04 Dose: 1 packet Oxycodone HCl (Oxyir) 5 mg PO Q4H PRN PRN PRN Reason: SEVERE PAIN (6-10/10) Last Admin: 06/12/18 09:09 Dose: 5 mg Paroxetine HCl (Paxil) 40 mg PO DAILY [facility] Last Admin: 06/12/18 11:13 Dose: 40 mg Sodium Chloride () 5 - 30 ml IV UD PRN PRN Reason: SALINE FLUSH Last Admin: 06/11/18 17:10 Dose: 10 ml Tamsulosin HCl (Flomax) 0.4 mg PO DAILY@1730 [facility] Last Admin: 06/11/18 17:10 Dose: 0.4 mg Zinc Sulfate (Zinc Sulfate) 220 mg PO DAILY [facility] Last Admin: 06/12/18 11:15 Dose: 220 mg Medical Necessity - Tobacco Use Smoking Status: Heavy Smoker (>10/day) - 1 pack per day Tobacco Use: Cigarettes Assessment/Plan All Active Problems Gangrene (Acute) Severe sepsis (Acute) 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 Sepsis due to Osteomyelitis of the right foot. is s/p I&D. Today is POD 5. Cultures were positive for Proteus vulgaris, MSSA< Strep Intermedius and gram negative krystin which is pending review. SIRS criteria today is 3/4 repeat cultures from 06/09/18 are ending Mild fever has resolved. on [facility] podiatry on board. To go for repeat surgery, podiatry will determine when. ID also on board Leukocytosis has resolved Noninvasive vascular studies of LEs showed right DOROTHY of 1.4 and left DOROTHY of 1.13. Has monophasic DP waveforms. He had duplex arterial study which was negative for evidence of significant atherosclerotic peripheral arterial occlusive disease in the lower extremities 2. Diabetes mellitus with neuropathy on lantus 10IU qhs and ISS accuchecks ACHS. home meds of insulin and glimepiride on hold 3. Afib admitted in RVR; now rate controlled on atenolol. Atenolol dose decreased due to hypotension on amiodaron and atenolol. coumadin on hold due to surgery 4. 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 Remote CVA with left sided hemiparesis: stable. on statin, aspirin. 6 Bilateral decubitus ulcers: stable. 7. PUlmonary hypertension per Echo: PA pressure is 67, up from 51 in 2013. Will monitor. 8. Anemia s/p transfusion of 2 units of PRBCs. Hb today- 7.6; has remained stable around 7.67.7 iron studies showed iron deficiency anemia. Most likely due to blood loss from surgery. will monitor 9. PAD: 9. Suspected Autoimmune disease: has negative RA titre. other autoimmune workup pending. Will monitor 10. DVT prophylaxis: heparin. coumadin on hold due to surgery Code Visit Inpatient E&M: 79491 Subs Hosp L2
--- NOTE | 2018-06-12 13:13 | PN_ITS ---
Patient Problems: Active and Suspected Problems Gangrene (Acute) Severe sepsis (Acute) Osteomyelitis (Suspected) PVD (peripheral vascular disease) (Suspected) 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) BPH (benign prostatic hyperplasia) (Suspected) Abscess of left leg (Acute) Ulcer of right lower extremity with fat layer exposed (Acute) Ulcer of left lower extremity with fat layer exposed (Acute) Vasculitic ulcer of lower extremity (Suspected) Subjective: He is a 63-year-old male was admitted via the ED on 05/28/2018 with a complaint of fever and chills and extensive ulcerations on both lower extremities. He is been managed for still myelitis of the right foot with severe cellulitis. He had surgery by podiatry on 06/08/2018 and had I&D and second ray amputation and extensive debridement of devitalized tissue. There was also copious pus. MRI of the left lower extremity on 06/09/2018 showed a large abscess. He is currently being worked up for possible autoimmune disease that may be causing the vasculitis as he has a butterfly rash with 3 notes as well as many chronic nonhealing wounds distal to the knees bilaterally. He also had A. fib with RVR on admission which is now controlled with Cardizem, atenolol and amiodarone. Podiatry and cardiology on board. Patient seen and examined. He was sitting up in bed with his by his side. He had a good night. He denied any palpitations or dizziness. Pain in feet is well controlled. Denies any chest pain, abdominal pain diarrhea vomiting. Review of systems otherwise negative. He is awaiting for the possible surgery by podiatry. Vitals/I&O's: Vital Signs Temp Pulse Resp BP Pulse Ox 97.8 F 90 20 H 101/67 95 06/12/18 10:00 06/12/18 11:00 06/12/18 10:00 06/12/18 10:00 06/12/18 10:00 Oxygen Flow Rate (L/min) 4 Oxygen Delivery Method Nasal Cannula Weight: 247 lb 7.996 oz Body Mass Index (BMI) 29.9 Finger Stick Blood Glucose 155 Intake and Output for Last 24 Hours 06/10/18 06/11/18 06/12/18 23:59 23:59 23:59 Intake Total 3109.4 / 3109.4 3178 / 3178 1671 / 1671 Output Total 925 / 925 1000 / 1000 900 / 900 Balance 2184.4 / 2184.4 2178 / 2178 771 / 771 General: Alert, Oriented x3, Cooperative, No apparent distress HEENT: Atraumatic, PERRLA, EOMI, Normocephalic Oral: Moist Mucosa Neck: Supple, No JVD, Negative Carotid Bruits Lungs: Clear to auscultation, Normal air movement, No rhonchi, No wheeze Cardiovascular: Regular rate, Regular Rhythm, Normal S1, Normal S2, No murmurs Abdomen: Bowel Sounds Present, Soft, Non Tender, Non-Distended, No Hepato- splenomegaly Extremities: - - Lower extremities wrapped in Joao bandage. Skin: - - Erythematous papular rash over both cheeks bilaterally. Musculoskeletal: No Tenderness to Palpation of Joints or Extremities Lymphatic: No Cervical, Supraclavicular, or Inguinal Adenopathy Neurological: Cranial nerves II-XII grossly intact Psych/Mental Status: Normal Affect, Appropriate, Alert and oriented to time, place, person, mood and affect Microbiology Past 72 Hours 06/10/18 17:11 Biopsy - Leg, Left Gram Stain - Final 06/10/18 17:11 Biopsy - Leg, Left Wound Culture - Preliminary Proteus vulgaris Staphylococcus species 06/08/18 Unknown Wound - Other Gram Stain - Final 06/08/18 Unknown Wound - Other Wound Culture - Final Proteus vulgaris Staphylococcus aureus Pasteurella multocida 06/08/18 Unknown Wound - Other Anaerobic Culture - Preliminary Checking for anaerobes, further studies to follow. 06/09/18 17:32 Blood Culture (Wb) - Right Hand Blood Culture - Preliminary No growth in 48 hours. 06/07/18 12:50 Wound Abcess - Right Foot Gram Stain - Final 06/07/18 12:50 Wound Abcess - Right Foot Wound Culture - Final Proteus vulgaris Staphylococcus aureus 06/07/18 12:50 Wound Abcess - Right Foot Anaerobic Culture - Final Presumptive B. fragilis group Anaerobic cocci Laboratory Results 06/11/18 16:38: POC Glucose 335 H 06/11/18 18:30: Magnesium 2.3 06/11/18 22:04: POC Glucose 224 H 06/12/18 06:28: PT 17.8 H, INR 1.5 06/12/18 06:28: Sodium 143, Potassium 3.7, Chloride 110 H, Carbon Dioxide 24.0, Anion Gap 9, BUN 43 H, Creatinine 1.33 H, Estim Creat Clear Calc 65.24, Est GFR (MDRD) Af Amer 70, Est GFR (MDRD) Non-Af 58 L, BUN/Creatinine Ratio 32.3 H, Glucose 183 H, Calcium 8.3 L, Magnesium 2.2, Prealbumin 6.8 L 06/12/18 06:28: WBC 8.4, RBC 2.62 L, Hgb 7.6 L, Hct 24.7 L, MCV 94.3 H, MCH 29.0 , MCHC 30.8 L, RDW 19.5 H, RDW Differential 65.2 H, Plt Count 198, MPV 10.9, Immature Gran % (Auto) 0.500, Neut % (Auto) 85.1 H, Lymph % (Auto) 6.7 L, [place] % (Auto) 6.9, Eos % (Auto) 0.7, Baso % (Auto) 0.1, Absolute Neuts (auto) 7.1, Absolute Lymphs (auto) 0.56 L, Total Counted Not Reportable, Diff Path Review May foll, Platelet Estimate ADEQUATE, Polychromasia RARE, Hypochromasia 2+, Poikilocytosis 2+, Anisocytosis 2+, Ovalocytes 2+ 06/12/18 06:28: Total Bilirubin 2.10 H, Direct Bilirubin 1.62 H, AST 16, ALT 16 , Alkaline Phosphatase 274 H, Total Protein 5.7 L, Albumin 2.1 L, Globulin 3.6 06/12/18 06:48: POC Glucose 182 H 06/12/18 11:10: POC Glucose 226 H Diagnostic Data Tibia/Fibula X-Ray 06/07/18 05:00 IMPRESSION: Extensive soft tissue infection of the leg and ankle. Electronically Signed: Delilah Brady MD at 9:01 EDT , Service support , Lower Extremity MRI 06/09/18 11:40 IMPRESSION: No MRI evidence of osteomyelitis. Soft tissue wound with abscess. Electronically Signed: Tony Paulino MD at 15:45 EDT , Service support , Chest X-Ray 06/09/18 17:35 IMPRESSION: No change. No acute chest disease. Moderate cardiomegaly. Electronically Signed: Renny Henriquez MD at 20:57 EDT , Service support , Foot X-Ray 06/11/18 09:00 IMPRESSION: Status post amputation of the right second and third toes at the level of the mid metatarsal. Soft tissue swelling. No acute fracture or dislocation. Electronically Signed: Christofer Marx at 9:46 EDT Tel , Service support , Current Medications Acetaminophen (Tylenol) 650 mg PO Q6H PRN PRN PRN Reason: PAIN Amiodarone HCl (Cordarone) 200 mg PO DAILY [facility] Last Admin: 06/12/18 11:12 Dose: 200 mg Ascorbic Acid (Vitamin C) [facility] Last Admin: 06/12/18 08:05 Dose: 500 mg Aspirin (Ecotrin) 81 mg PO DAILY [facility] Last Admin: 06/12/18 11:12 Dose: 81 mg Atenolol (Tenormin (Beta Mikie)) 25 mg PO BID [facility] Last Admin: 06/12/18 11:14 Dose: 25 mg Atorvastatin Calcium (Lipitor) 10 mg PO QHS [facility] Last Admin: 06/11/18 22:12 Dose: 10 mg Cholecalciferol (Vitamin D) 1,000 unit PO DAILY [facility] Last Admin: 06/12/18 11:14 Dose: 1,000 unit Collagenase (Santyl) 1 applic TOPICAL DAILY [facility] PRN Reason: Protocol Last Admin: 06/12/18 11:13 Dose: 1 applicatio Diltiazem HCl (Cardizem Cd) 120 mg PO BID [facility] Last Admin: 06/12/18 11:12 Dose: 120 mg Docusate Sodium (Colace) 100 mg PO BID [facility] Last Admin: 06/12/18 11:12 Dose: 100 mg Glimepiride (Amaryl) [facility] Last Admin: 06/12/18 08:04 Dose: 4 mg Heparin Sodium (Porcine) (Heparin Na) 5,000 unit SC Q8 [facility] Last Admin: 06/12/18 05:36 Dose: 5,000 unit Sodium Chloride () 1,000 mls @ 60 mls/hr IV .[id number] [facility] Last Admin: 06/12/18 03:18 Dose: 60 mls/hr Piperacillin Sod/Tazobactam Sod (Zosyn) 3.375 gm in 50 mls @ 12.5 mls/hr IV Q8 [facility] Last Admin: 06/12/18 05:36 Dose: 12.5 mls/hr Insulin Glargine (Lantus (Bkc)) 10 units SC QHS [facility] Last Admin: 06/11/18 22:08 Dose: 10 unit Insulin Human Lispro (Humalog Kwikpen (Bkc)) 0 unit SC TIDAC [facility] PRN Reason: Protocol Last Admin: 06/12/18 11:15 Dose: 4 units Lisinopril (Zestril) 40 mg PO DAILY [facility] Last Admin: 06/12/18 11:15 Dose: 40 mg Magnesium Hydroxide (Milk Of Magnesia) 30 ml PO DAILY PRN PRN Reason: Constipation Mirtazapine (Remeron) 15 mg PO QHS [facility] Last Admin: 06/11/18 22:12 Dose: 15 mg Nicotine (Nicoderm Cq (Pbkc)) 21 mg TRANSDERM. DAILY [facility] Last Admin: 06/12/18 11:12 Dose: 21 mg Nutritional Formula (Juan - [place] Flavor) 1 packet [facility] Last Admin: 06/12/18 08:04 Dose: 1 packet Oxycodone HCl (Oxyir) 5 mg PO Q4H PRN PRN PRN Reason: SEVERE PAIN (6-10/10) Last Admin: 06/12/18 09:09 Dose: 5 mg Paroxetine HCl (Paxil) 40 mg PO DAILY [facility] Last Admin: 06/12/18 11:13 Dose: 40 mg Sodium Chloride () 5 - 30 ml IV UD PRN PRN Reason: SALINE FLUSH Last Admin: 06/11/18 17:10 Dose: 10 ml Tamsulosin HCl (Flomax) 0.4 mg PO DAILY@1730 [facility] Last Admin: 06/11/18 17:10 Dose: 0.4 mg Zinc Sulfate (Zinc Sulfate) 220 mg PO DAILY [facility] Last Admin: 06/12/18 11:15 Dose: 220 mg Medical Necessity - Tobacco Use Smoking Status: Heavy Smoker (>10/day) - 1 pack per day Tobacco Use: Cigarettes Assessment/Plan All Active Problems Gangrene (Acute) Severe sepsis (Acute) 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 Sepsis due to Osteomyelitis of the right foot. * is s/p I&D. Today is POD 5. Cultures were positive for Proteus vulgaris, MSSA < Strep Intermedius and gram negative krystin which is pending review. * SIRS criteria today is 3/4 * repeat cultures from 06/09/18 are ending * Mild fever has resolved. * on zosyn * podiatry on board. To go for repeat surgery, podiatry will determine when. * ID also on board * Leukocytosis has resolved * Noninvasive vascular studies of LEs showed right DOROTHY of 1.4 and left DOROTHY of 1.13. Has monophasic DP waveforms. He had duplex arterial study which was negative for evidence of significant atherosclerotic peripheral arterial occlusive disease in the lower extremities * 2. Diabetes mellitus with neuropathy * on lantus 10IU qhs and ISS * accuchecks ACHS. * home meds of insulin and glimepiride on hold * 3. Afib * admitted in RVR; now rate controlled * on atenolol. Atenolol dose decreased due to hypotension * on amiodaron and atenolol. coumadin on hold due to surgery * 4. 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 Remote CVA with left sided hemiparesis: stable. on statin, aspirin. 6 Bilateral decubitus ulcers: stable. 7. PUlmonary hypertension per Echo: PA pressure is 67, up from 51 in 2013. Will monitor. 8. Anemia * s/p transfusion of 2 units of PRBCs. Hb today- 7.6; has remained stable around 7.67.7 * iron studies showed iron deficiency anemia. Most likely due to blood loss from surgery. * will monitor * 9. PAD: * * 9. Suspected Autoimmune disease: has negative RA titre. other autoimmune workup pending. Will monitor 10. DVT prophylaxis: heparin. coumadin on hold due to surgery Code Visit Inpatient E&M: 92923 Subs Hosp L2
[2018-06-12] MEDS: Tamsulosin HCl 0.4 MG Capsule PO (16:25)
[2018-06-12 16:35] LABS: Bedside Glucose 261 mg/dL (70-110)
[2018-06-12] MEDS: Atorvastatin Calcium 10 MG Tablet PO (21:17)
[2018-06-12] MEDS: Mirtazapine 15 MG Tablet PO (21:17)
[2018-06-12 22:26] LABS: Bedside Glucose 241 mg/dL (70-110)
[2018-06-12] MEDS: Ipratropium/Albuterol Sulfate 3 ML AMPUL.NEB INHALATION (23:04)
[2018-06-13] VITALS (22 sets, daily range): BP systolic 101–132; BP diastolic 69–97; PULSE 87–114; RESP 20–28; TEMP 36.6–37.2; O2SAT 91–100
[2018-06-13] MEDS: Heparin Injection (Vial) 5,000 UNIT/ML VIAL 5000 UNIT SC ×3 (05:12→21:03)
[2018-06-13] MEDS: Piperacil/Tazobactam 3.375 GM/50 ML ML IV ×2 (05:12→13:39)
[2018-06-13] MEDS: Ipratropium/Albuterol Sulfate 3 ML AMPUL.NEB INHALATION ×4 (07:11→19:45)
[2018-06-13 07:15] LABS: Absolute Lymphocyte Count 0.41 X10^3/ul (0.83-4.51); Absolute Neutrophil Count 9.5 X10^3/uL (2.0-7.7); Basophil# 0.01 X10^3/uL; Basophil% 0.1 % (0-1); Eosinophil# 0.02 X10^3/uL; Eosinophils% 0.2 % (0-5); Hematocrit 29.5 % (40-54); Hemoglobin 8.8 g/dl (13.0-16.5); Lymphocyte # 0.41 X10^3/ul (4.0); Lymphocyte % 3.9 % (19-41); Mean Corp Hgb Conc 29.8 g/gl (32-36); Mean Corpuscular Hgb 28.8 pg (27.0-32.0); Mean Corpuscular Volume 96.4 fL (80-94); Mean Platelet Vol. 10.7 fl (6.2-12.0); Monocyte# 0.39 X10^3/uL; Monocyte% 3.7 % (0-10); Neutrophil # 9.54 X10^3/uL (2.7-7.7); Neutrophil % 91.6 % (47-70); Platelet Count 231 K/mm3 (150-450); RBC Distribution Width CV 20.4 % (11.6-14.6); RBC Distribution Width SD 66.5 fl (35.1-43.9); Red Blood Count 3.06 M/mm3 (4.6-6.2); White Blood Count 10.4 K/mm3 (4.4-11.0)
[2018-06-13 07:16] LABS: Bedside Glucose 213 mg/dL (70-110)
[2018-06-13 07:36] LABS: Differential Indicated SCAN CRITERIA MET; POSITIVE COUNT NO; POSITIVE DIFFERENTIAL YES; POSITIVE MORPHOLOGY YES
[2018-06-13] MEDS: Insulin Lispro 100 UNIT/ML INSULN.PEN SC ×3 (08:24→16:30)
[2018-06-13] MEDS: Glimepiride 4 MG Tablet PO (08:24)
[2018-06-13] MEDS: Ascorbic Acid 500 MG Tablet PO ×2 (08:24→16:32)
[2018-06-13 08:49] LABS: CCP IgG Antibodies 11 units (0-19)
[2018-06-13] MEDS: Aspirin E.C. 81 MG Tablet PO (10:24)
[2018-06-13] MEDS: Atenolol 25 MG Tablet PO ×2 (10:24→21:06)
[2018-06-13] MEDS: Amiodarone 200 MG Tablet PO (10:24)
[2018-06-13] MEDS: dilTIAZem CD 120 MG Capsule PO ×2 (10:24→21:03)
[2018-06-13] MEDS: Collagenase 30gm Tube 1 APPLIC TOPICAL (10:25)
[2018-06-13] MEDS: Lisinopril 40 MG Tablet PO (10:26)
[2018-06-13 11:31] LABS: Bedside Glucose 272 mg/dL (70-110)
--- NOTE | 2018-06-13 11:51 | CT_ITS ---
STUDY: CT PELVIS WITHOUT CONTRAST REASON FOR EXAM: Male, 63 years old. SACRAL AND BILAT. ISCHIAL PRESSURE SORES. Patient has multiple bilat lower extremity sores. Hx of diabetes,HTN,CVA and anemia RADIATION DOSAGE (If Supplied By Facility): CTDIvol = ( 28.20 ) mGy, DLP = ( 1399.62 ) mGycm TECHNIQUE: Transaxial imaging of the pelvis was performed with oral contrast, and without intravenous administration of contrast material. Individualized dose optimization techniques were used for this CT. COMPARISON: None. FINDINGS: Normal urinary bladder. Multiple bilateral renal cysts are noted largest measures approximately 7.5 cm is in the left kidney. Normal visualized small intestine. There are multiple colonic diverticula of the sigmoid colon consistent with chronic diverticulosis. There is no pelvic fluid. There is no pelvic mass lesion or lymphadenopathy. Normal visualized pelvic arteries. There is fat stranding of the abdominal wall and pelvic wall and proximal thighs suggesting anasarca. There are diffuse degenerative changes of the visualized lumbar spine. CT/Pelvis without IV Contrast IMPRESSION: There is fat stranding of the abdominal wall and pelvic wall and proximal thighs suggesting anasarca. There is no evidence of abscess. There is no evidence of osteoarthritis. Electronically Signed: Satnam Kendall MD at 11:42 EDT Tel , Service support ,
[2018-06-13] MEDS: 0.9% Normal Saline 1,000 ML 60 ML IV (12:45)
[2018-06-13] MEDS: oxyCODONE 5 MG Tablet PO (12:45)
--- NOTE | 2018-06-13 12:45 | RAD_ITS ---
STUDY: X-RAY CHEST REASON FOR EXAM: Male, 63 years old. Shortness of breath with dyspnea TECHNIQUE: Single AP portable view of the chest. COMPARISON: 06/09/2018 FINDINGS: Development of diffuse interstitial edema and vascular congestion. Moderate cardiomegaly is noted throughout. No pneumothorax or effusions. Lungs are mildly hypoinflated. RAD/Chest 1 View (Portable) IMPRESSION: Interval development of diffuse interstitial edema and vascular congestion Electronically Signed: John Craven DO at 15:22 EDT Tel , Service support ,
[2018-06-13] MEDS: Furosemide 40 MG/4 ML Vial IV ×2 (13:39→21:06)
--- NOTE | 2018-06-13 13:45 | CASEMGMT ---
Per Dr. Stearns, pt agrees to LTACH referral and he would like referral sent today. This RN CM spoke with pt and pt does agree to LTACH referral at this time. is not currently at bedside. Referral faxed to [facility] at this time and call placed to Sonia at [facility] who states that she is off today but that Ayaka Haque, director, would take care of referral today for her. This RN CM awaiting call back from [facility] on acceptance and insurance approval. This RN CM will update when she arrives. Yadira RN CM
[2018-06-13 14:14] LABS: Pathologist Review Reviewed
--- NOTE | 2018-06-13 15:37 | NURSING ---
wound photo: right medial lower leg/foot
--- NOTE | 2018-06-13 15:38 | NURSING ---
wound photo: right anterior/lateral lower leg
--- NOTE | 2018-06-13 15:38 | NURSING ---
wound photo: right foot (distal view)
--- NOTE | 2018-06-13 15:39 | NURSING ---
wound photo: right foot (plantar view)
--- NOTE | 2018-06-13 15:39 | NURSING ---
wound photo: left anterior lower leg
--- NOTE | 2018-06-13 15:40 | NURSING ---
wound photo: left posterior lower leg
--- NOTE | 2018-06-13 15:59 | PCM.PN.ID ---
Patient Problems: Active and Suspected Problems Gangrene (Acute) Severe sepsis (Acute) Osteomyelitis (Suspected) PVD (peripheral vascular disease) (Suspected) 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) BPH (benign prostatic hyperplasia) (Suspected) Abscess of left leg (Acute) Ulcer of right lower extremity with fat layer exposed (Acute) Ulcer of left lower extremity with fat layer exposed (Acute) Vasculitic ulcer of lower extremity (Suspected) Subjective: Feeling ok, no fever, no diarrhea. - Physical Exam General: Alert, Cooperative Lungs: Clear to auscultation, Normal air movement Cardiovascular: Regular rate, Regular Rhythm Abdomen: Soft, Non Tender, Non-Distended Skin: Ulcer/ Wound - legs bandaged, reviewed photos Vital Signs Temp Pulse Resp BP Pulse Ox 98 F 90 20 H 123/72 H 96 06/13/18 15:15 06/13/18 15:15 06/13/18 15:15 06/13/18 15:15 06/13/18 15:15 Oxygen Flow Rate (L/min) 6 Oxygen Delivery Method Nasal Cannula Weight: 112.264 kg Body Mass Index (BMI) 29.9 Finger Stick Blood Glucose 155 Intake and Output for Last 24 Hours 06/11/18 06/12/18 06/13/18 23:59 23:59 23:59 Intake Total 3178 / 3178 2669 / 2669 1168 / 1168 Output Total 1000 / 1000 1275 / 1275 1000 / 1000 Balance 2178 / 2178 1394 / 1394 168 / 168 Microbiology Past 72 Hours 06/10/18 17:11 Gram Stain - Final Biopsy - Leg, Left Wound Culture - Preliminary Proteus vulgaris Staphylococcus aureus Anaerobic Culture - Preliminary Checking for anaerobes, further studies to follow. 06/08/18 Unknown Gram Stain - Final Wound - Other Wound Culture - Final Proteus vulgaris Staphylococcus aureus Pasteurella multocida Anaerobic Culture - Final Presumptive B. fragilis group Anaerobic cocci 06/09/18 17:32 Blood Culture - Preliminary Blood Culture (Wb) - Right Hand No growth in 48 hours. 06/07/18 12:50 Gram Stain - Final Wound Abcess - Right Foot Wound Culture - Final Proteus vulgaris Staphylococcus aureus Anaerobic Culture - Final Presumptive B. fragilis group Anaerobic cocci Laboratory Tests Past 24 Hrs 06/09/18 06/12/18 06/13/18 17:30 06:28 06:40 WBC 10.4 RBC 3.06 L Hgb 8.8 L Hct 29.5 L MCV 96.4 H MCH 28.8 MCHC 29.8 L RDW 20.4 H RDW Differential 66.5 H Plt Count 231 MPV 10.7 Immature Gran % (Auto) 0.500 Neut % (Auto) 91.6 H Lymph % (Auto) 3.9 L [place] % (Auto) 3.7 Eos % (Auto) 0.2 Baso % (Auto) 0.1 Absolute Neuts (auto) 9.5 H Absolute Lymphs (auto) 0.41 L Total Counted Not Reportable Differential Comment COMMENT Diff Path Review Reviewed Cycl Citrul Peptide IgG 11 POC Glucose 06/13/18 06/13/18 06/12/18 11:28 06:47 21:10 POC Glucose 272 H 213 H 241 H 06/12/18 16:17 POC Glucose 261 H Medical Necessity - Tobacco Use Smoking Status: Heavy Smoker (>10/day) - 1 pack per day Tobacco Use: Cigarettes Route of nutrition/ use of supplements: [] Nutritional Intake: [] IV Site: [] Aponte Catheter: [] - Assessment/Plan Antibiotics: [] Assessment/Plan: [] Active and Suspected Problems Gangrene (Acute) Severe sepsis (Acute) Osteomyelitis (Suspected) PVD (peripheral vascular disease) (Suspected) 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) BPH (benign prostatic hyperplasia) (Suspected) R foot and lower leg gangrene with pasteurella bacteremia - taken to OR 06/[address] Gruber. Wound cxs with MSSA, strep, proteus, pasteurella, anaerobes. MRSA pcr neg. Narrow zosyn to unasyn. May need amputation for definitive management. Will follow
[2018-06-13] MEDS: Tamsulosin HCl 0.4 MG Capsule PO (16:31)
[2018-06-13 16:41] LABS: Bedside Glucose 255 mg/dL (70-110)
--- NOTE | 2018-06-13 19:27 | PCM.PROGNOTE ---
Patient Problems: Active and Suspected Problems Gangrene (Acute) Severe sepsis (Acute) Osteomyelitis (Suspected) PVD (peripheral vascular disease) (Suspected) 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) BPH (benign prostatic hyperplasia) (Suspected) Abscess of left leg (Acute) Ulcer of right lower extremity with fat layer exposed (Acute) Ulcer of left lower extremity with fat layer exposed (Acute) Vasculitic ulcer of lower extremity (Suspected) Subjective: Patient seen and examined today, in room and I talked with both of them, I recommended an LTAC transfer to the patient and his , patient agreed to consider this and I let discharge planning know about it. Patient had increased respiratory distress today, I ordered CXR which showed CHF- I placed patient on IV Lasix. - Physical Exam General: Alert, Oriented x3, Cooperative, No apparent distress, Well developed HEENT: Atraumatic, PERRLA, EOMI, Normocephalic Oral: Moist Mucosa Neck: Supple, No JVD, Negative Carotid Bruits, No Nuchal Rigidity, Trachea Midline, Thyroid Normal Size and Texture Lungs: No rhonchi, Diminished, Wheezes - Scattered expiratory wheezes were noted bilaterally Cardiovascular: No murmurs, PMI Normal, Irregular Rate, Murmur - There is a 2/6 systolic murmur noted at the right and left sternal border as well as the apex, No rub noted Abdomen: Bowel Sounds Present, Soft, Non Tender, Non-Distended, No hernias noted Extremities: - - Examination of both lower legs was not performed due to surgical wrapping of the legs and feet which were in place Neurological: Cranial nerves II-XII grossly intact, Neuro grossly intact, Sensory exam intact to light touch and pain Psych/Mental Status: Flat Affect, Restless, - - Patient is alert with some evidence of confusion Vital Signs Temp Pulse Resp BP Pulse Ox 98 F 94 22 H 123/72 H 96 06/13/18 15:15 06/13/18 15:25 06/13/18 15:25 06/13/18 15:15 06/13/18 15:15 Oxygen Flow Rate (L/min) 6 Oxygen Delivery Method Nasal Cannula Weight: 112.264 kg Body Mass Index (BMI) 29.9 Finger Stick Blood Glucose 155 Intake and Output for Last 24 Hours 06/11/18 06/12/18 06/13/18 23:59 23:59 23:59 Intake Total 3178 / 3178 2669 / 2669 1435 / 1435 Output Total 1000 / 1000 1275 / 1275 2900 / 2900 Balance 2178 / 2178 1394 / 1394 -1465 / -1465 Microbiology Past 72 Hours 06/13/18 14:45 Stool Occult Blood (ANITRA) - Final Stool 06/10/18 17:11 Gram Stain - Final Biopsy - Leg, Left Wound Culture - Preliminary Proteus vulgaris Staphylococcus aureus Anaerobic Culture - Preliminary Checking for anaerobes, further studies to follow. 06/08/18 Unknown Gram Stain - Final Wound - Other Wound Culture - Final Proteus vulgaris Staphylococcus aureus Pasteurella multocida Anaerobic Culture - Final Presumptive B. fragilis group Anaerobic cocci 06/09/18 17:32 Blood Culture - Preliminary Blood Culture (Wb) - Right Hand No growth in 48 hours. 06/07/18 12:50 Gram Stain - Final Wound Abcess - Right Foot Wound Culture - Final Proteus vulgaris Staphylococcus aureus Anaerobic Culture - Final Presumptive B. fragilis group Anaerobic cocci Laboratory Tests Past 24 Hrs 06/09/18 06/12/18 06/13/18 17:30 06:28 06:40 WBC 10.4 RBC 3.06 L Hgb 8.8 L Hct 29.5 L MCV 96.4 H MCH 28.8 MCHC 29.8 L RDW 20.4 H RDW Differential 66.5 H Plt Count 231 MPV 10.7 Immature Gran % (Auto) 0.500 Neut % (Auto) 91.6 H Lymph % (Auto) 3.9 L [place] % (Auto) 3.7 Eos % (Auto) 0.2 Baso % (Auto) 0.1 Absolute Neuts (auto) 9.5 H Absolute Lymphs (auto) 0.41 L Total Counted Not Reportable Differential Comment COMMENT Diff Path Review Reviewed Cycl Citrul Peptide IgG 11 POC Glucose 06/13/18 06/13/18 06/13/18 16:29 11:28 06:47 POC Glucose 255 H 272 H 213 H 06/12/18 21:10 POC Glucose 241 H Medical Necessity - Tobacco Use Smoking Status: Heavy Smoker (>10/day) - 1 pack per day Tobacco Use: Cigarettes Assessment/Plan All Active Problems Vasculitis (Acute) Abscess of right leg (Acute) Abscess of right foot (Acute) Gangrene (Acute) Severe sepsis (Acute) 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) Abscess of left leg (Acute) Ulcer of right lower extremity with fat layer exposed (Acute) Ulcer of left lower extremity with fat layer exposed (Acute) #1 severe sepsis secondary to Proteus vulgaris, methicillin sensitive staph aureus, and Bacillus fragilis, and Pasteurella multocida from deep wound infection right foot with abscess, osteomyelitis, and gangrene-I talked with the patient's insurance healthcare consultant jose roberto, it is a recommendation that the patient undergo at least a right below the knee amputation when he is medically stable, I talked to the patient and his today about transfer to an LTAC and they are not opposed to this and seemed to understand the benefit provided by the LTAC. I do not believe the patient is stable enough for surgery at this time #2 acute diastolic congestive heart failure-EF 50% on latest echocardiogram--patient was placed on IV Lasix, chest x-ray will be repeated tomorrow #3 deep wound infection of the left calf with Proteus vulgaris and methicillin sensitive staph aureus #4 Paroxysmal atrial fibrillation-currently in atrial fib, rate controlled at this time #5 hypertension #6 type 2 diabetes #7 severe mitral regurg #8 tricuspid regurg #9 severe pulmonary hypertension #10 iron deficiency anemia requiring blood transfusion #11 cerebrovascular disease with mild left hemiparesis #12 severe protein and caloric malnutrition #13 diabetic neuropathy #14 hypoxic respiratory failure secondary to diastolic congestive heart failure-O2 sat will be monitored #15 probable COPD Code Visit Inpatient E&M: 09806 [facility] Hosp L3
[2018-06-13] MEDS: Mirtazapine 15 MG Tablet PO (21:06)
[2018-06-13] MEDS: Atorvastatin Calcium 10 MG Tablet PO (21:06)
[2018-06-13 21:46] LABS: Bedside Glucose 191 mg/dL (70-110)
[2018-06-14] VITALS (15 sets, daily range): BP systolic 107–126; BP diastolic 64–76; PULSE 87–102; RESP 14–24; TEMP 36.3–36.8; O2SAT 85–99
--- NOTE | 2018-06-14 03:55 | RAD_ITS ---
STUDY: X-RAY CHEST REASON FOR EXAM: Male, 63 years old. SHORT OF BREATH/DYSPNEA TECHNIQUE: Single AP portable view of the chest. COMPARISON: 06/13/2018. FINDINGS: Ill-defined groundglass opacities are seen in the right upper lobe and right lower lobe may represent pneumonia. The previously described interstitial edema in the perihilar regions appear improved. There is no demonstrated pleural abnormality. There is mild cardiac enlargement. Normal mediastinum and clifford. Normal visualized pulmonary arteries. There is atherosclerotic calcification of the aortic arch with tortuosity. Normal visualized thoracic spine. There is degenerative osteoarthritis of the bilateral shoulders. There is no demonstrated abnormality of the visualized soft tissue structures of the upper abdomen. RAD/Chest 1 View (Portable) IMPRESSION: Probable right upper lobe and right lower lobe pneumonia. Electronically Signed: Satnam Kendall MD at 8:59 EDT Tel , Service support ,
--- NOTE | 2018-06-14 04:21 | PCA ---
Unable to get patient's weight for a daily weight. Patient's bed does not have a bed scale. Patient is complete bedrest and unable to use standing scale.
[2018-06-14] MEDS: Ipratropium/Albuterol Sulfate 3 ML AMPUL.NEB INHALATION ×4 (04:24→15:27)
[2018-06-14 04:56] LABS: Allen Test POS; Base Excess 3 mmol/L (-2 to +2); Blood Gas Specimen Type ART; O2 Delivery Device Nasal Can; PO2 54 mmHG (75-100); SITE R Radial; SO2 89 % (95-99); Time Given 440; Total Carbon Dioxide 28 mmol/L; pCO2 39.2 mmHg (35-45); pH 7.45 (7.35-7.45)
[2018-06-14] MEDS: Furosemide 40 MG/4 ML Vial IV ×2 (05:02→14:05)
[2018-06-14] MEDS: Heparin Injection (Vial) 5,000 UNIT/ML VIAL 5000 UNIT SC ×2 (05:02→14:04)
[2018-06-14 06:45] LABS: Bedside Glucose 137 mg/dL (70-110)
[2018-06-14 06:54] LABS: Absolute Lymphocyte Count 0.45 X10^3/ul (0.83-4.51); Absolute Neutrophil Count 5.6 X10^3/uL (2.0-7.7); Eosinophil# 0.05 X10^3/uL; Eosinophils% 0.8 % (0-5); Hematocrit 27.5 % (40-54); Hemoglobin 8.3 g/dl (13.0-16.5); Lymphocyte # 0.45 X10^3/ul (4.0); Lymphocyte % 6.9 % (19-41); Mean Corp Hgb Conc 30.2 g/gl (32-36); Mean Corpuscular Volume 96.2 fL (80-94); Mean Platelet Vol. 11.1 fl (6.2-12.0); Monocyte# 0.34 X10^3/uL; Monocyte% 5.2 % (0-10); Neutrophil # 5.62 X10^3/uL (2.7-7.7); Neutrophil % 86.8 % (47-70); Platelet Count 211 K/mm3 (150-450); RBC Distribution Width CV 20.3 % (11.6-14.6); RBC Distribution Width SD 66.8 fl (35.1-43.9); Red Blood Count 2.86 M/mm3 (4.6-6.2); White Blood Count 6.5 K/mm3 (4.4-11.0)
[2018-06-14 06:56] LABS: Differential Indicated SCAN CRITERIA MET; POSITIVE COUNT NO; POSITIVE DIFFERENTIAL YES; POSITIVE MORPHOLOGY YES
[2018-06-14 07:13] LABS: ALB/GLOB Ratio 0.5 RATIO (0.9-2.4); AST(SGOT) 20 U/L (15-37); Alanine Aminotransfer ALT/SGPT 20 U/L (16-61); Albumin, Serum 2.1 g/dL (3.2-5.0); Alkaline Phosphatase 367 U/L (45-117); Anion Gap 4 (5-15); BUN 35 mg/dL (7-18); BUN/Creat Ratio 30.4 RATIO (10-20); Calcium,Total 8.7 mg/dL (8.5-10.1); Chloride 110 mmol/L (98-107); Creatinine, Serum 1.15 mg/dL (0.70-1.30); EST Glomerular Filtration Rate 68 mL/min (>60); Est Glom Filt Rate - Afr Amer 82 mL/min (>60); Estimated Creatinine Clearance 75.45 ml/min; Globulin 4.1 g/dL (2.2-4.2); Glucose 130 mg/dL (74-106); Potassium 3.3 mmol/L (3.5-5.1); Protein, Total 6.2 g/dL (6.4-8.2); Sodium Level 145 mmol/L (136-145)
[2018-06-14 07:38] LABS: Hypochromasia 2+; Ovalocyte 2+; Platelet Estimate ADEQUATE (ADEQ)
[2018-06-14] MEDS: oxyCODONE 5 MG Tablet PO (09:03)
[2018-06-14] MEDS: Ascorbic Acid 500 MG Tablet PO (09:03)
[2018-06-14] MEDS: Glimepiride 4 MG Tablet PO (09:03)
--- NOTE | 2018-06-14 09:42 | PCM.PROGNOTE ---
Patient Problems: Active and Suspected Problems Gangrene (Acute) Severe sepsis (Acute) Osteomyelitis (Suspected) PVD (peripheral vascular disease) (Suspected) 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) BPH (benign prostatic hyperplasia) (Suspected) Abscess of left leg (Acute) Ulcer of right lower extremity with fat layer exposed (Acute) Ulcer of left lower extremity with fat layer exposed (Acute) Vasculitic ulcer of lower extremity (Suspected) Subjective: This 63-year-old male with multiple comorbidities was seen bedside postoperative day #4 right leg and ankle incision and drainage with fasciotomies, third/second ray resection of the right foot, left leg abscess incision and drainage, and debridement of bilateral circumferential leg ulcers by Dr. Gruber. He denies fever, chill, nausea, vomiting currently. Paperwork has been placed for the patient the go to [facility] in order to stabilize the patient prior to amputation(s). Patient and his are in agreement. - Physical Exam General: Alert, Oriented x3, Cooperative Extremities: Diminished Peripheral Pulses - DP and PT pulses non palpable bilateral, Edema, Tenderness - with manipulation of ulcer/wound sites, - - Reduced capillary time right foot to toes Skin: Ulcer/ Wound - The fasciotomy and I&D sites continue to demonstrate fibrous and granular tissue. There is no odor noted to the area today. No purulence able to be expressed. No maceration appreciated. The wound beds to the legs are also fibrous, some slough, and some granular tissue. There is no longer any exposed necrotic Achilles or gastrocnemius muscle to the left lower extremity. There are some tendons appreciated to some of the surgical sites. His skin is very atrophic and hairless. Musculoskeletal: Muscle Wasting, - - Open second and third ray resections right foot Neurological: - - epicritic sensation grossly absent to lower extremity. Psych/Mental Status: Normal Affect, Appropriate Vital Signs Temp Pulse Resp BP Pulse Ox 97.3 F L 99 18 124/76 H 97 06/14/18 06:00 06/14/18 06:57 06/14/18 06:45 06/14/18 06:00 06/14/18 07:15 Oxygen Flow Rate (L/min) 15 Oxygen Delivery Method Nasal Cannula Weight: 112.264 kg Body Mass Index (BMI) 29.9 Finger Stick Blood Glucose 155 Intake and Output for Last 24 Hours 06/12/18 06/13/18 06/14/18 23:59 23:59 23:59 Intake Total 2669 / 2669 1435 / 1435 447 / 447 Output Total 1275 / 1275 2900 / 2900 5800 / 5800 Balance 1394 / 1394 -1465 / -1465 -5353 / -5353 Microbiology Past 72 Hours 06/10/18 17:11 Gram Stain - Final Biopsy - Leg, Left Wound Culture - Final Proteus vulgaris Staphylococcus aureus Anaerobic Culture - Preliminary Checking for anaerobes, further studies to follow. 06/13/18 14:45 Stool Occult Blood (ANITRA) - Final Stool 06/08/18 Unknown Gram Stain - Final Wound - Other Wound Culture - Final Proteus vulgaris Staphylococcus aureus Pasteurella multocida Anaerobic Culture - Final Presumptive B. fragilis group Anaerobic cocci 06/09/18 17:32 Blood Culture - Preliminary Blood Culture (Wb) - Right Hand No growth in 48 hours. 06/07/18 12:50 Gram Stain - Final Wound Abcess - Right Foot Wound Culture - Final Proteus vulgaris Staphylococcus aureus Anaerobic Culture - Final Presumptive B. fragilis group Anaerobic cocci Laboratory Tests Past 24 Hrs 06/12/18 06/14/18 06/14/18 06:28 04:47 06:08 WBC 6.5 RBC 2.86 L Hgb 8.3 L Hct 27.5 L MCV 96.2 H MCH 29.0 MCHC 30.2 L RDW 20.3 H RDW Differential 66.8 H Plt Count 211 MPV 11.1 Immature Gran % (Auto) 0.300 Neut % (Auto) 86.8 H Lymph % (Auto) 6.9 L [place] % (Auto) 5.2 Eos % (Auto) 0.8 Baso % (Auto) 0.0 Absolute Neuts (auto) 5.6 Absolute Lymphs (auto) 0.45 L Total Counted Not Reportable Diff Path Review Reviewed Platelet Estimate ADEQUATE Hypochromasia 2+ Ovalocytes 2+ Specimen Type ART Sample Site R Radial pH 7.45 Bicarbonate Actual 27.0 H POC Total CO2 28 Base Excess 3 H O2 Saturation 89 L ABG pCO2 39.2 ABG pO2 54 L Derek Test POS O2 Delivery Device Nasal Can Liter Flow 5.0 Blood Gas Notified Whom HOSP Blood Gas Notified Time 440 Sodium Potassium Chloride Carbon Dioxide Anion Gap BUN Creatinine Estim Creat Clear Calc Est GFR (MDRD) Af Amer Est GFR (MDRD) Non-Af BUN/Creatinine Ratio Glucose Calcium Total Bilirubin AST ALT Alkaline Phosphatase Total Protein Albumin Globulin Albumin/Globulin Ratio 06/14/18 06:08 WBC RBC Hgb Hct MCV MCH MCHC RDW RDW Differential Plt Count MPV Immature Gran % (Auto) Neut % (Auto) Lymph % (Auto) [place] % (Auto) Eos % (Auto) Baso % (Auto) Absolute Neuts (auto) Absolute Lymphs (auto) Total Counted Diff Path Review Platelet Estimate Hypochromasia Ovalocytes Specimen Type Sample Site pH Bicarbonate Actual POC Total CO2 Base Excess O2 Saturation ABG pCO2 ABG pO2 Derek Test O2 Delivery Device Liter Flow Blood Gas Notified Whom Blood Gas Notified Time Sodium 145 Potassium 3.3 L Chloride 110 H Carbon Dioxide 31.0 Anion Gap 4 L BUN 35 H Creatinine 1.15 Estim Creat Clear Calc 75.45 Est GFR (MDRD) Af Amer 82 Est GFR (MDRD) Non-Af 68 BUN/Creatinine Ratio 30.4 H Glucose 130 H Calcium 8.7 Total Bilirubin 1.60 H AST 20 ALT 20 Alkaline Phosphatase 367 H Total Protein 6.2 L Albumin 2.1 L Globulin 4.1 Albumin/Globulin Ratio 0.5 L POC Glucose 06/14/18 06/13/18 06/13/18 06:40 20:59 16:29 POC Glucose 137 H 191 H 255 H 06/13/18 11:28 POC Glucose 272 H Medical Necessity - Tobacco Use Smoking Status: Heavy Smoker (>10/day) - 1 pack per day Tobacco Use: Cigarettes Assessment/Plan All Active Problems Vasculitis (Acute) Abscess of right leg (Acute) Abscess of right foot (Acute) Gangrene (Acute) Severe sepsis (Acute) 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) Abscess of left leg (Acute) Ulcer of right lower extremity with fat layer exposed (Acute) Ulcer of left lower extremity with fat layer exposed (Acute) -Right foot ulcer with septic joint and osteomyelitis and abscess; postoperative day #4 open second and third ray resections with widespread incision and drainage of the foot, ankle and leg including fasciotomies -Bilateral large leg wounds with subcutaneous tissue exposed right and subcutaneous and Achilles and gastrocnemius tissue exposed left -Left leg incision and drainage POD #4 for treatment of abscess to the posterior medial leg -s/p punch biopsy of leg ulcer vasculitis tissue, right -Diabetes with neuropathy -Malnutrition -Peripheral vascular disease -Vasculitis / raynauds -Connective tissue disorder suspected -Lower extremity edema -Delayed healing -Multiple other comorbidities and risk for limb loss Patient was carefully examined and evaluated bedside again today. WBC is 6.5. Case was discussed with Dr. Stearns who started the patient on lasix yesterday as he went into CHF. Patient doing better today. Dr. Stearns got the patient approved for LTACH in order to stabilize the patient while waiting for amputation(s). Patient and his are in agreement with this plan. Dr. Escobar with infectious disease has been seeing the patient and has him on appropriate antibiotics. The surgical sites and lower leg ulcers were evaluated again today. Betadine soaked gauze were packed deep into the fasciotomy and drainage sites. Additional gauze, Adaptic ABD pads, Kerlix, and Joao wraps were reapplied with the assistance of Shraddha Sharp. He and his understand he is at high risk for limb loss on the right and even possibly left. The benefits and recovery time and management were discussed in detail today. Smoking cessation was advised. Medical management, DVT prophylaxis, and pain management per primary team is appreciated. All and any questions were answered today to the patient and patient's 's satisfaction. The podiatry team will continue to follow him close while in house.
--- NOTE | 2018-06-14 09:45 | CASEMGMT ---
Addendum entered by Stephanie Woodward 06/14/18 15:32: Still awaiting discharge instructions/summary to fax to [facility]. Green sheet and med list left with PCU personal secretary at this time and voice understanding. Yadira MALCOLM CM Original Note: Addendum entered by Stephanie Woodward 06/14/18 10:28: Dr. Stearns states pt can be discharged today. Sonia from [facility] aware and here to speak with pt/ at this time. Yadira MALCOLM CM Original Note: This RN MECCA received call from Sonia at [facility] and she states that pt has been approved for LTACH at this time. Pt/ updated at this time, voice understanding. Dr. Fallon, Dr. Escobar, Anjali, [facility] RN, and Dr. Stearns all notified at this time as well, voice understanding. Yadira MALCOLM CM
--- NOTE | 2018-06-14 10:02 | PN.ID_ITS ---
Patient Problems: Active and Suspected Problems Gangrene (Acute) Severe sepsis (Acute) Osteomyelitis (Suspected) PVD (peripheral vascular disease) (Suspected) 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) BPH (benign prostatic hyperplasia) (Suspected) Abscess of left leg (Acute) Ulcer of right lower extremity with fat layer exposed (Acute) Ulcer of left lower extremity with fat layer exposed (Acute) Vasculitic ulcer of lower extremity (Suspected) Subjective: Feeling better, no fever, no cough or SOB. - Physical Exam General: Alert, Cooperative, No apparent distress Lungs: Clear to auscultation, Normal air movement Cardiovascular: Regular rate, Regular Rhythm Abdomen: Soft, Non Tender, Non-Distended Extremities: - - BLE wrapped Vital Signs Temp Pulse Resp BP Pulse Ox 97.3 F L 99 18 124/76 H 97 06/14/18 06:00 06/14/18 06:57 06/14/18 06:45 06/14/18 06:00 06/14/18 07:15 Oxygen Flow Rate (L/min) 15 Oxygen Delivery Method Nasal Cannula Weight: 112.264 kg Body Mass Index (BMI) 29.9 Finger Stick Blood Glucose 155 Intake and Output for Last 24 Hours 06/12/18 06/13/18 06/14/18 23:59 23:59 23:59 Intake Total 2669 / 2669 1435 / 1435 447 / 447 Output Total 1275 / 1275 2900 / 2900 5800 / 5800 Balance 1394 / 1394 -1465 / -1465 -5353 / -5353 Microbiology Past 72 Hours 06/10/18 17:11 Gram Stain - Final Biopsy - Leg, Left Wound Culture - Final Proteus vulgaris Staphylococcus aureus Anaerobic Culture - Preliminary Checking for anaerobes, further studies to follow. 06/13/18 14:45 Stool Occult Blood (ANITRA) - Final Stool 06/08/18 Unknown Gram Stain - Final Wound - Other Wound Culture - Final Proteus vulgaris Staphylococcus aureus Pasteurella multocida Anaerobic Culture - Final Presumptive B. fragilis group Anaerobic cocci 06/09/18 17:32 Blood Culture - Preliminary Blood Culture (Wb) - Right Hand No growth in 48 hours. 06/07/18 12:50 Gram Stain - Final Wound Abcess - Right Foot Wound Culture - Final Proteus vulgaris Staphylococcus aureus Anaerobic Culture - Final Presumptive B. fragilis group Anaerobic cocci Laboratory Tests Past 24 Hrs 06/12/18 06/14/18 06/14/18 06:28 04:47 06:08 WBC 6.5 RBC 2.86 L Hgb 8.3 L Hct 27.5 L MCV 96.2 H MCH 29.0 MCHC 30.2 L RDW 20.3 H RDW Differential 66.8 H Plt Count 211 MPV 11.1 Immature Gran % (Auto) 0.300 Neut % (Auto) 86.8 H Lymph % (Auto) 6.9 L [place] % (Auto) 5.2 Eos % (Auto) 0.8 Baso % (Auto) 0.0 Absolute Neuts (auto) 5.6 Absolute Lymphs (auto) 0.45 L Total Counted Not Reportable Diff Path Review Reviewed Platelet Estimate ADEQUATE Hypochromasia 2+ Ovalocytes 2+ Specimen Type ART Sample Site R Radial pH 7.45 Bicarbonate Actual 27.0 H POC Total CO2 28 Base Excess 3 H O2 Saturation 89 L ABG pCO2 39.2 ABG pO2 54 L Derek Test POS O2 Delivery Device Nasal Can Liter Flow 5.0 Blood Gas Notified Whom [facility] Blood Gas Notified Time 440 Sodium Potassium Chloride Carbon Dioxide Anion Gap BUN Creatinine Estim Creat Clear Calc Est GFR (MDRD) Af Amer Est GFR (MDRD) Non-Af BUN/Creatinine Ratio Glucose Calcium Total Bilirubin AST ALT Alkaline Phosphatase Total Protein Albumin Globulin Albumin/Globulin Ratio 06/14/18 06:08 WBC RBC Hgb Hct MCV MCH MCHC RDW RDW Differential Plt Count MPV Immature Gran % (Auto) Neut % (Auto) Lymph % (Auto) [place] % (Auto) Eos % (Auto) Baso % (Auto) Absolute Neuts (auto) Absolute Lymphs (auto) Total Counted Diff Path Review Platelet Estimate Hypochromasia Ovalocytes Specimen Type Sample Site pH Bicarbonate Actual POC Total CO2 Base Excess O2 Saturation ABG pCO2 ABG pO2 Derek Test O2 Delivery Device Liter Flow Blood Gas Notified Whom Blood Gas Notified Time Sodium 145 Potassium 3.3 L Chloride 110 H Carbon Dioxide 31.0 Anion Gap 4 L BUN 35 H Creatinine 1.15 Estim Creat Clear Calc 75.45 Est GFR (MDRD) Af Amer 82 Est GFR (MDRD) Non-Af 68 BUN/Creatinine Ratio 30.4 H Glucose 130 H Calcium 8.7 Total Bilirubin 1.60 H AST 20 ALT 20 Alkaline Phosphatase 367 H Total Protein 6.2 L Albumin 2.1 L Globulin 4.1 Albumin/Globulin Ratio 0.5 L POC Glucose 06/14/18 06/13/18 06/13/18 06:40 20:59 16:29 POC Glucose 137 H 191 H 255 H 06/13/18 11:28 POC Glucose 272 H Medical Necessity - Tobacco Use Smoking Status: Heavy Smoker (>10/day) - 1 pack per day Tobacco Use: Cigarettes Route of nutrition/ use of supplements: [] Nutritional Intake: [] IV Site: [] Aponte Catheter: [] - Assessment/Plan Antibiotics: [] Assessment/Plan: [] Active and Suspected Problems Gangrene (Acute) Severe sepsis (Acute) Osteomyelitis (Suspected) PVD (peripheral vascular disease) (Suspected) 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) BPH (benign prostatic hyperplasia) (Suspected) R foot and lower leg gangrene with pasteurella bacteremia - taken to OR 06/[address] Gruber. Wound cxs with MSSA, strep, proteus, pasteurella, anaerobes. MRSA pcr neg. Narrowed zosyn to unasyn. May need amputation for definitive management. Plan on 6 weeks of iv abx, starting from last debridement 2017. Stop date 07/22/18. Weekly bmp, cbc, and esr while on these iv abx. Picc today. Will follow
[2018-06-14] MEDS: Docusate Sodium 100 MG Capsule PO (11:34)
[2018-06-14] MEDS: dilTIAZem CD 120 MG Capsule PO (11:34)
[2018-06-14] MEDS: Amiodarone 200 MG Tablet PO (11:35)
[2018-06-14] MEDS: Aspirin E.C. 81 MG Tablet PO (11:35)
[2018-06-14] MEDS: Collagenase 30gm Tube 1 APPLIC TOPICAL (11:36)
[2018-06-14] MEDS: Atenolol 25 MG Tablet PO (11:36)
[2018-06-14] MEDS: Lisinopril 40 MG Tablet PO (11:37)
[2018-06-14] MEDS: Insulin Lispro 100 UNIT/ML INSULN.PEN SC (11:39)
[2018-06-14 11:41] LABS: Bedside Glucose 256 mg/dL (70-110)
[2018-06-14 15:30] LABS: ANTINUCLEAR ANTIBODIES DIRECT Negative (Negative)
--- NOTE | 2018-06-14 20:22 | NURSING ---
2000 called [facility] to pick up attendant bed. Confirmation # [id number]
--- NOTE | 2018-06-16 10:02 | PCM.DC.SUM ---
Discharge Date and Diagnosis Date of Admission: 06/07/18 Date of Discharge: 06/14/18 - Primary Discharge Diagnosis #1 severe sepsis secondary to Proteus vulgaris, methicillin sensitive staph aureus, and Bacillus fragilis, and Pasteurella multocida from deep wound infection right foot with abscess, osteomyelitis, and gangrene #2 acute diastolic congestive heart failure-EF 50% on latest echocardiogram- #3 deep wound infection of the left calf with Proteus vulgaris and methicillin sensitive staph aureus #4 Paroxysmal atrial fibrillation-currently in atrial fib #5 hypertension #6 type 2 diabetes #7 severe mitral regurg #8 tricuspid regurg #9 severe pulmonary hypertension #10 iron deficiency anemia requiring blood transfusion #11 cerebrovascular disease with mild left hemiparesis #12 severe protein and caloric malnutrition #13 diabetic neuropathy #14 hypoxic respiratory failure secondary to diastolic congestive heart failure- #15 probable COPD #16 metabolic encephalopathy secondary to severe sepsis and multiple medical problems - Secondary Discharge Diagnosis Chronic Problems Anemia (Chronic) Chronic anticoagulation (Chronic) Murmur, cardiac (Chronic) Cardiomyopathy (Chronic) 47 % EF in 2012 Pulmonary HTN (Chronic) PA systolic 51 in 2013 Tobacco dependence due to cigarettes (Chronic) CVA, old, hemiparesis (Chronic) left side weakness....stroke in 2013 Urinary incontinence (Chronic) Ulcer of right lower extremity with fat layer exposed (Chronic) Ulcer of left lower extremity with fat layer exposed (Chronic) 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) Ulcer of right foot with necrosis of muscle (Chronic) Osteomyelitis (Chronic) Right foot infection (Chronic) Type 2 diabetes mellitus with diabetic polyneuropathy (Chronic) Localized edema (Chronic) Malnutrition (Chronic) Tobacco user (Chronic) HLD (hyperlipidemia) (Chronic) DM2 (diabetes mellitus, type 2) (Chronic) Depression (Chronic) Chronic low back pain (Chronic) Benign essential HTN (Chronic) Hospital Course and Treatment Consultations 06/07/18 08:39 Consult: Onc/Wound/statistical methods professor Routine Comment: Reason for Consult:: multiple wounds, bottom, infected legs, tunnled wounds on feet Operations: - - Incision and drainage of right foot, second ray resection right foot, debridement of left leg wound including devitalized tendon Procedures: 2-D Echocardiogram Summary of Care Provided: The patient is a 63 year old M who was seen in the emergency room at [facility] with complaints of fever and possible right foot infection that was noted by the approximately 5 days prior to being seen in the emergency room. Patient has had open wounds to his lower extremities for months, patient has kept medical information from his and she is unaware of the extent of the severity of the wounds on his right foot. Workup in the emergency room included an EKG which showed atrial fibrillation which was chronic for the patient, white blood cell count was 10.6, hemoglobin was 8.8, chemistries were unremarkable except for BUN of 31. Lactate was elevated at 2.2, x-rays of the right foot was obtained which shows soft tissue swelling. Patient was given IV antibiotics in the emergency room for cellulitis of the right foot and deep wound infection with gangrene and suspected osteomyelitis, fluid bolus was given in the emergency room, patient was felt to have severe sepsis. Patient was admitted, seen in consultation by infectious diseases, podiatry, and cardiology. Patient's cardiac medications were adjusted by cardiology. Patient was taken to surgery for extensive debridement of his right foot and a wound on the left calf, it was felt that the patient actually would require an amputation of the right lower leg but the patient was not medically stable for this procedure during his hospital admission. Due to the patient's multiple medical problems, it was felt that he would benefit from transfer to an LTAC for further stabilization and care. Patient had increased oxygen demand 2 days prior to being discharged to an LTAC and was found to have congestive heart failure which was diastolic as the patient's ejection fraction was normal. This was treated with IV Lasix. On 06/14/18, patient was seen and examined and felt to be in stable condition for transfer to an LTAC for further care. Home Medications: Medications to take at Discharge Aspirin [Adult Aspirin] 81 mg PO DAILY 06/07/18 Atenolol 50 mg PO BID 06/07/18 Cholecalciferol (VIT D3) [Vitamin D3] 1,000 unit PO DAILY 06/07/18 Glimepiride [Amaryl] 4 mg PO DAILY 06/07/18 Lisinopril [Zestril] 40 mg PO DAILY 06/07/18 Paroxetine [Paxil] 40 mg PO DAILY 06/07/18 Simvastatin 20 mg PO QHS 06/07/18 Acetaminophen [Tylenol Tablet] 650 mg PO Q6H PRN PRN tablet 06/14/18 Amiodarone HCl [Cordarone] 200 mg PO DAILY tablet 06/14/18 Ampicillin/Sulbactam [Unasyn] 3 gm IV Q8 vial 06/14/18 Ascorbic Acid [Vitamin C] 500 mg PO BIDCM tablet 06/14/18 Collagenase [Santyl] 1 applic TOPICAL DAILY tube 06/14/18 Diltiazem CD [Cardizem CD] 120 mg PO BID capsule 06/14/18 Docusate Sodium [Colace] 100 mg PO BID capsule 06/14/18 Furosemide [Lasix] 40 mg PO TID #1 tablet 06/14/18 Heparin Injection (Vial) [Heparin Na] 5,000 unit SC Q8 vial 06/14/18 Insulin Glargine [Lantus SoloStar Pen] 10 units SC QHS pen 06/14/18 Insulin Lispro [Humalog KwikPen] See Protocol SC TIDAC insuln.pen 06/14/18 Ipratropium/Albuterol Sulfate [Duoneb] 3 ml INHALATION Q4HWA.RT ampul.neb 06/14/18 Mirtazapine [Remeron] 15 mg PO QHS tablet 06/14/18 Nutritional Supplement [Juna - ORANGE FLAVOR] 1 packet PO BIDCM packet 06/14/18 Potassium Chloride [K-Dur] 20 meq PO BIDCM tablet 06/14/18 Tamsulosin HCl [Flomax] 0.4 mg PO DAILY@1730 capsule 06/14/18 Zinc Sulfate (50mg elemental) [Zinc Sulfate] 220 mg PO DAILY capsule 06/14/18 Following Prescrptions Were Given to Patient: Furosemide [Lasix] 40 mg PO TID #1 tablet Primary Care Physician: Hong Sparks MD [Primary Care Provider] - Disposition: Acute care Hospital Minutes spent on discharge:: 34 Patient Condition:: Stable Medical Necessity - Tobacco Use Smoking Status: Heavy Smoker (>10/day) - 1 pack per day Tobacco Use: Cigarettes Meaningful Use Info Meaningful Use Diagnoses (Choose all that apply): None applicable Code Visit Inpatient E&M: 35464 Disch Hosp
--- NOTE | 2018-06-16 10:12 | DS.PCM_ITS ---
Discharge Date and Diagnosis Date of Admission: 06/07/18 Date of Discharge: 06/14/18 - Primary Discharge Diagnosis #1 severe sepsis secondary to Proteus vulgaris, methicillin sensitive staph aureus, and Bacillus fragilis, and Pasteurella multocida from deep wound infection right foot with abscess, osteomyelitis, and gangrene #2 acute diastolic congestive heart failure-EF 50% on latest echocardiogram- #3 deep wound infection of the left calf with Proteus vulgaris and methicillin sensitive staph aureus #4 Paroxysmal atrial fibrillation-currently in atrial fib #5 hypertension #6 type 2 diabetes #7 severe mitral regurg #8 tricuspid regurg #9 severe pulmonary hypertension #10 iron deficiency anemia requiring blood transfusion #11 cerebrovascular disease with mild left hemiparesis #12 severe protein and caloric malnutrition #13 diabetic neuropathy #14 hypoxic respiratory failure secondary to diastolic congestive heart failure- #15 probable COPD #16 metabolic encephalopathy secondary to severe sepsis and multiple medical problems - Secondary Discharge Diagnosis Chronic Problems Anemia (Chronic) Chronic anticoagulation (Chronic) Murmur, cardiac (Chronic) Cardiomyopathy (Chronic) 47 % EF in 2012 Pulmonary HTN (Chronic) PA systolic 51 in 2013 Tobacco dependence due to cigarettes (Chronic) CVA, old, hemiparesis (Chronic) left side weakness....stroke in 2013 Urinary incontinence (Chronic) Ulcer of right lower extremity with fat layer exposed (Chronic) Ulcer of left lower extremity with fat layer exposed (Chronic) 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) Ulcer of right foot with necrosis of muscle (Chronic) Osteomyelitis (Chronic) Right foot infection (Chronic) Type 2 diabetes mellitus with diabetic polyneuropathy (Chronic) Localized edema (Chronic) Malnutrition (Chronic) Tobacco user (Chronic) HLD (hyperlipidemia) (Chronic) DM2 (diabetes mellitus, type 2) (Chronic) Depression (Chronic) Chronic low back pain (Chronic) Benign essential HTN (Chronic) Hospital Course and Treatment Consultations 06/07/18 08:39 Consult: Onc/Wound/pressure supervisor Routine Comment: Reason for Consult:: multiple wounds, bottom, infected legs, tunnled wounds on feet Operations: - - Incision and drainage of right foot, second ray resection right foot, debridement of left leg wound including devitalized tendon Procedures: 2-D Echocardiogram Summary of Care Provided: The patient is a 63 year old M who was seen in the emergency room at [facility] with complaints of fever and possible right foot infection that was noted by the approximately 5 days prior to being seen in the emergency room. Patient has had open wounds to his lower extremities for months , patient has kept medical information from his and she is unaware of the extent of the severity of the wounds on his right foot. Workup in the emergency room included an EKG which showed atrial fibrillation which was chronic for the patient, white blood cell count was 10.6, hemoglobin was 8.8, chemistries were unremarkable except for BUN of 31. Lactate was elevated at 2.2 , x-rays of the right foot was obtained which shows soft tissue swelling. Patient was given IV antibiotics in the emergency room for cellulitis of the right foot and deep wound infection with gangrene and suspected osteomyelitis, fluid bolus was given in the emergency room, patient was felt to have severe sepsis. Patient was admitted, seen in consultation by infectious diseases, podiatry, and cardiology. Patient's cardiac medications were adjusted by cardiology. Patient was taken to surgery for extensive debridement of his right foot and a wound on the left calf, it was felt that the patient actually would require an amputation of the right lower leg but the patient was not medically stable for this procedure during his hospital admission. Due to the patient's multiple medical problems, it was felt that he would benefit from transfer to an LTAC for further stabilization and care. Patient had increased oxygen demand 2 days prior to being discharged to an LTAC and was found to have congestive heart failure which was diastolic as the patient's ejection fraction was normal. This was treated with IV Lasix. On 06/14/18, patient was seen and examined and felt to be in stable condition for transfer to an LTAC for further care. Home Medications: Medications to take at Discharge Aspirin [Adult Aspirin] 81 mg PO DAILY 06/07/18 Atenolol 50 mg PO BID 06/07/18 Cholecalciferol (VIT D3) [Vitamin D3] 1,000 unit PO DAILY 06/07/18 Glimepiride [Amaryl] 4 mg PO DAILY 06/07/18 Lisinopril [Zestril] 40 mg PO DAILY 06/07/18 Paroxetine [Paxil] 40 mg PO DAILY 06/07/18 Simvastatin 20 mg PO QHS 06/07/18 Acetaminophen [Tylenol Tablet] 650 mg PO Q6H PRN PRN tablet 06/14/18 Amiodarone HCl [Cordarone] 200 mg PO DAILY tablet 06/14/18 Ampicillin/Sulbactam [Unasyn] 3 gm IV Q8 vial 06/14/18 Ascorbic Acid [Vitamin C] 500 mg PO BIDCM tablet 06/14/18 Collagenase [Santyl] 1 applic TOPICAL DAILY tube 06/14/18 Diltiazem CD [Cardizem CD] 120 mg PO BID capsule 06/14/18 Docusate Sodium [Colace] 100 mg PO BID capsule 06/14/18 Furosemide [Lasix] 40 mg PO TID #1 tablet 06/14/18 Heparin Injection (Vial) [Heparin Na] 5,000 unit SC Q8 vial 06/14/18 Insulin Glargine [Lantus SoloStar Pen] 10 units SC QHS pen 06/14/18 Insulin Lispro [Humalog KwikPen] See Protocol SC TIDAC insuln.pen 06/14/18 Ipratropium/Albuterol Sulfate [Duoneb] 3 ml INHALATION Q4HWA.RT ampul.neb 06/14 Mirtazapine [Remeron] 15 mg PO QHS tablet 06/14/18 Nutritional Supplement [Juan - ORANGE FLAVOR] 1 packet PO BIDCM packet Potassium Chloride [K-Dur] 20 meq PO BIDCM tablet 06/14/18 Tamsulosin HCl [Flomax] 0.4 mg PO DAILY@1730 capsule 06/14/18 Zinc Sulfate (50mg elemental) [Zinc Sulfate] 220 mg PO DAILY capsule 06/14/18 Following Prescrptions Were Given to Patient: Furosemide [Lasix] 40 mg PO TID #1 tablet Primary Care Physician: Hong Sparks MD [Primary Care Provider] - Disposition: Acute care Hospital Minutes spent on discharge:: 34 Patient Condition:: Stable Medical Necessity - Tobacco Use Smoking Status: Heavy Smoker (>10/day) - 1 pack per day Tobacco Use: Cigarettes Meaningful Use Info Meaningful Use Diagnoses (Choose all that apply): None applicable Code Visit Inpatient E&M: 40087 Disch Hosp
[2018-06-17 20:07] LABS: Complement C3 146 mg/dL (82-167)
[2018-06-18 09:20] LABS: Complement CH50 > 60 U/mL (>41); HLA B27 Negative (.)
--- NOTE | 2018-06-20 14:27 | CASEMGMT ---
Rec'd phone call from Kim Richards RN Photostat Operator Helper (phone [phone]) from Dr. Sparks's office at [facility]. Requesting info on which LTAC pt transferred to, as she is only able to see in [facility] that pt went to an LTAC. Info provided that pt transferred to [facility], per RNJAIRO's note. Huyen Colin LPN Clinical Support
== END 2018-06-14 16:40 | disposition short-term general hospital (02) | DRG 853 ==
LOC: ED 05:59 → PCU 07:18
PROVIDERS: Hospitalist; Internal Medicine; Internal Medicine Cardiovascular Disease; Podiatrist; Student in an Organized Health Care Education/Training Program; Surgery; Admitting Provider Internal Medicine; Emergency Provider Emergency Medicine; Family Provider Family Medicine; PCP Family Medicine; Visit Provider Internal Medicine
PROC: 0Y6R0Z0 Detachment at Right 2nd Toe, Complete, Open Approach (ICD-10-PCS; principal; 2018-06-08 12:35)
PROC: 0J9Q0ZZ Drainage of Right Foot Subcutaneous Tissue and Fascia, Open Approach (ICD-10-PCS; principal; 2018-06-10 07:20)
DX: A41.01 Sepsis due to Methicillin susceptible Staphylococcus aureus (principal); J96.01 Acute respiratory failure with hypoxia; G93.41 Metabolic encephalopathy; I50.31 Acute diastolic (congestive) heart failure; A48.0 Gas gangrene; I63.9 Cerebral infarction, unspecified; E43 Unspecified severe protein-calorie malnutrition; A28.0 Pasteurellosis; E11.52 Type 2 diabetes mellitus with diabetic peripheral angiopathy with gangrene; M86.171 Other acute osteomyelitis, right ankle and foot; L02.611 Cutaneous abscess of right foot; L02.416 Cutaneous abscess of left lower limb; L97.818 Non-pressure chronic ulcer of other part of right lower leg with other specified severity; L97.825 Non-pressure chronic ulcer of other part of left lower leg with muscle involvement without evidence of necrosis; I69.354 Hemiplegia and hemiparesis following cerebral infarction affecting left non-dominant side; A41.59 Other Gram-negative sepsis; R65.20 Severe sepsis without septic shock; I11.0 Hypertensive heart disease with heart failure; E11.622 Type 2 diabetes mellitus with other skin ulcer; L89.152 Pressure ulcer of sacral region, stage 2; L89.222 Pressure ulcer of left hip, stage 2; L89.212 Pressure ulcer of right hip, stage 2; I73.9 Peripheral vascular disease, unspecified; I48.0 Paroxysmal atrial fibrillation; I34.0 Nonrheumatic mitral (valve) insufficiency; I07.1 Rheumatic tricuspid insufficiency; I27.20 Pulmonary hypertension, unspecified; D50.9 Iron deficiency anemia, unspecified; Z68.29 Body mass index [BMI] 29.0-29.9, adult; E11.42 Type 2 diabetes mellitus with diabetic polyneuropathy; I25.10 Atherosclerotic heart disease of native coronary artery without angina pectoris; I25.2 Old myocardial infarction; F17.210 Nicotine dependence, cigarettes, uncomplicated; R01.1 Cardiac murmur, unspecified; I25.5 Ischemic cardiomyopathy; E78.5 Hyperlipidemia, unspecified; M54.5 Low back pain; G89.29 Other chronic pain; F32.9 Major depressive disorder, single episode, unspecified; N40.0 Benign prostatic hyperplasia without lower urinary tract symptoms; I73.00 Raynaud's syndrome without gangrene; Z79.82 Long term (current) use of aspirin; Z79.01 Long term (current) use of anticoagulants; Z79.899 Other long term (current) drug therapy; Z86.718 Personal history of other venous thrombosis and embolism; Z79.4 Long term (current) use of insulin
CPT/HCPCS: 36415; 36600; 51702; 71045; 72192; 73590; 73620; 73630; 73718; 76000; 80048; 80053; 80061; 80076; 80202; 81001; 81374; 82274; 82607; 82728; 82746; 82803; 82962; 83036; 83540; 83550; 83605; 83735; 84100; 84134; 84443; 84484; 85025; 85045; 85610; 85652; 85730; 86038; 86140; 86160; 86162; 86200; 86225; 86235; 86431; 86850; 86900; 86920; 87015; 87040; 87070; 87075; 87077; 87102; 87116; 87186; 87205; 87206; 87641; 88304; 88305; 88311; 88312; 93005; 93306; 93923; 93970; 94640; 97110; 97162; 97166; 97530; 97802; 99285; 99406; J1756; J7030; J7040; P9016; P9047; A4216; J0295; J1940; J2405; J2785

== ENCOUNTER 2018-07-20 09:23 | Outpatient (RCR) | payer OTHER, SELFPAY ==
[2018-07-20 09:40] VITALS: BP 121/75; PULSE 110; RESP 22; TEMP 36.6; BMI 32.2
--- NOTE | 2018-07-20 11:38 | PCM.WC.PN ---
(1) Osteomyelitis Status: Suspected Code(s): M86.9 - Osteomyelitis, unspecified (2) PVD (peripheral vascular disease) Status: Suspected Code(s): I73.9 - Peripheral vascular disease, unspecified (3) Chronic anticoagulation Status: Chronic Code(s): Z79.01 - residential (current) use of anticoagulants (4) Ulcer of right lower extremity with fat layer exposed Status: Chronic Code(s): L97.912 - Non-pressure chronic ulcer of unspecified part of right lower leg with fat layer exposed (5) Ulcer of left lower extremity with fat layer exposed Status: Chronic Code(s): L97.922 - Non-pressure chronic ulcer of unspecified part of left lower leg with fat layer exposed (6) Ulcer of right foot with necrosis of muscle Status: Chronic Code(s): L97.513 - Non-pressure chronic ulcer of other part of right foot with necrosis of muscle (7) Type 2 diabetes mellitus with diabetic polyneuropathy Status: Chronic Code(s): E11.42 - Type 2 diabetes mellitus with diabetic polyneuropathy (8) Malnutrition Status: Chronic Code(s): E46 - Unspecified protein-calorie malnutrition (9) Vasculitic ulcer of lower extremity Status: Suspected Code(s): L97.909 - Non-pressure chronic ulcer of unspecified part of unspecified lower leg with unspecified severity Type of Wound Date of Service: 07/23/18 Chief Complaint: Leg wounds and right foot wound History of Wound: This 63-year-old male with multiple comorbidities was seen today for follow-up of bilateral leg wounds and right foot wound. He is previously known to me during his last admission at [facility] on 06/07/2018. He was admitted for bilateral lower extremity abscesses infection osteomyelitis with sepsis and acute renal failure. He was taken for emergent surgical intervention followed by serial debridement and irrigation on 06/10/2018. He had vasculitis and peripheral vascular disease and he underwent a rheumatological workup while in the hospital. He is since been residing at an [facility] facility and is most recently residing at [facility]. He has an arterial Doppler scheduled for August 02, 2018. He reports decreased leg pain, or swelling. He denies fever, chill, nausea, vomiting. He denies claudication however he admits he is basically nonambulatory at this time and this has been chronic prior to this recent wound and infection episode. He does have rest paresthesias. He is taking a nutritional supplement daily and is unaware of the name of the product. He is with his Leticia today. 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 Surgical history: Tonsillectomy, right foot amputation, bilateral fasciotomies to legs with debridement. Social history: Smokes 1 pack per day, drinks 1 beer per day, denies drug use, lives with spouse usually and is currently at [facility]. Family history: Pacemaker, heart disease, diabetes, amputations, atrial fibrillation, suspected autoimmune disorder with mother. Medications: Reviewed in EHR. Allergies: No known drug allergies. Current MD management: Dr. Perdomo at [facility] Progress of Wound: Improved and stabilized compared to last hospital admission - Physical Exam Vital Signs Temp Pulse Resp BP 97.8 F 110 H 22 H 121/75 H 07/20/18 09:40 07/20/18 09:40 07/20/18 09:40 07/20/18 09:40 General: Alert, Oriented x3, Cooperative HEENT: Atraumatic Extremities: No cyanosis, Capillary Refill Less than 3 Seconds, No Calf Tenderness - Negative prep bilateral, Diminished Peripheral Pulses - Nonpalpable pulses bilateral lower extremity, Edema Skin: Ulcer/ Wound - No purulence, erythema, streaking, odor, gayatri necrosis eschar or infection bilateral lower extremity. There is granular fibrous base wounds. There is exposed tendon and gastrocnemius medius muscle belly exposed to left lower extremity. There is exposed tendinous structures and fascia to the plantar right foot and medial ankle area. There is no exposed bone bilateral lower extremities. Peripheral skin is atrophic and hairless. There is some epithelialization noted to the widespread bilateral leg wounds compared to his last hospital admission. There is no hair present. Wound Measurements and Assessment WC - Nurse 1 - General Ulcer Measurement Start: 07/20/18 09:40 Freq: Status: Active Protocol: Activity Type Activity Date Activity User E-Sign Co-Sign Detail Recorded Client Recorded Date Recorded By Document 07/20/18 09:40 DL [id number] 07/20/18 10:23 DL 07/20/18 09:40 Wound Center Nurse 1 [Ulcer Assessment] #8 r Knee -Current Size (cm) - Length 1.6 -Current Size (cm) - Width 2 -Current Size (cm) - Depth 0.2 -Total Square Cm 3.2 -Photo Taken Yes -Classification - Thickness Full Thickness without Exposed Support Structure -Exudate Amt Small (1-33%) -Exudate Type Serosanguineous -Wound Margin Distinct, Outline Attached -Granulation Amt None Present (0 %) -Necrosis Amt Medium (34-66%) -Necrotic Tissue Type Adherent Slough -Structure Exposed N/A -Texture (Lisa-wound Skin Appearance) Localized Edema -Moisture (Lisa-wound Skin Appearance Dry/Scaly ) -Color (Lisa-wound Skin Appearance) Erythema Hemosiderin Staining -Temperature (Lisa-wound Skin No Abnormality Appearance) (Pt Warm) -Ulcer Cleansing Wound Cleanser -Foul Odor after Cleansing No -Anesthetic Used 4% Lidocaine Solution #7 L Lat LE Cluster -Current Size (cm) - Length 11 -Current Size (cm) - Width 11 -Current Size (cm) - Depth 0.1 -Total Square Cm 121 -Photo Taken Yes -Classification - Thickness Full Thickness without Exposed Support Structure -Exudate Amt Medium (34-66%) -Exudate Type Serosanguineous -Wound Margin Distinct, Outline Attached -Granulation Amt Medium (34-66%) -Granulation Quality [place] -Necrosis Amt Medium (34-66%) -Necrotic Tissue Type Adherent Slough -Structure Exposed N/A -Texture (Lisa-wound Skin Appearance) Localized Edema Scarring -Moisture (Lisa-wound Skin Appearance Weeping ) Dry/Scaly -Color (Lisa-wound Skin Appearance) Erythema Hemosiderin Staining -Temperature (Lisa-wound Skin No Abnormality Appearance) (Pt Warm) -Ulcer Cleansing Wound Cleanser -Foul Odor after Cleansing No -Anesthetic Used 4% Lidocaine Solution #6 L Post -Current Size (cm) - Length 23 -Current Size (cm) - Width 6 -Current Size (cm) - Depth 0.1 -Total Square Cm 138 -Photo Taken Yes -Tunneling No -Undermining/Tunneling No -Classification - Thickness Full Thickness without Exposed Support Structure -Exudate Amt Medium (34-66%) -Exudate Type Serosanguineous -Wound Margin Distinct, Outline Attached -Granulation Amt Medium (34-66%) -Granulation Quality [place] -Necrosis Amt Medium (34-66%) -Necrotic Tissue Type Adherent Slough -Structure Exposed Fascia N/A -Texture (Lisa-wound Skin Appearance) Localized Edema Scarring -Moisture (Lisa-wound Skin Appearance Dry/Scaly ) -Color (Lisa-wound Skin Appearance) Erythema Hemosiderin Staining -Temperature (Lisa-wound Skin No Abnormality Appearance) (Pt Warm) -Ulcer Cleansing Wound Cleanser -Foul Odor after Cleansing No -Anesthetic Used 4% Lidocaine Solution #5 R Lat LE -Current Size (cm) - Length 5 -Current Size (cm) - Width 4 -Current Size (cm) - Depth 0.2 -Total Square Cm 20 -Photo Taken Yes -Exudate Amt Small (1-33%) -Exudate Type Serosanguineous -Wound Margin Distinct, Outline Attached -Granulation Amt Small (1-33%) -Granulation Quality [place] -Necrosis Amt Large (67-100%) -Necrotic Tissue Type Adherent Slough -Structure Exposed N/A -Texture (Lisa-wound Skin Appearance) Localized Edema Scarring -Moisture (Lisa-wound Skin Appearance No Abnormality ) -Color (Lisa-wound Skin Appearance) Erythema Hemosiderin Staining -Temperature (Lisa-wound Skin No Abnormality Appearance) (Pt Warm) -Ulcer Cleansing Wound Cleanser -Foul Odor after Cleansing No -Anesthetic Used 4% Lidocaine Solution #4 R post LE -Current Size (cm) - Length 3 -Current Size (cm) - Width 2.5 -Current Size (cm) - Depth 0.1 -Total Square Cm 7.5 -Photo Taken Yes -Classification - Allen Grading ( Grade 2 Diabetic Ulcer) -Exudate Amt Small (1-33%) -Exudate Type Serosanguineous -Wound Margin Distinct, Outline Attached -Granulation Amt Small (1-33%) -Granulation Quality [place] -Necrosis Amt Large (67-100%) -Necrotic Tissue Type Adherent Slough -Structure Exposed N/A -Texture (Lisa-wound Skin Appearance) Localized Edema Scarring -Moisture (Lisa-wound Skin Appearance No Abnormality ) -Color (Lisa-wound Skin Appearance) Erythema Hemosiderin Staining -Temperature (Lisa-wound Skin No Abnormality Appearance) (Pt Warm) -Tenderness on Palpation (Lisa-wound No Skin Appearance) -Ulcer Cleansing Wound Cleanser -Foul Odor after Cleansing No -Anesthetic Used 4% Lidocaine Solution #3 R Med LE -Current Size (cm) - Length 4.8 -Current Size (cm) - Width 1.8 -Current Size (cm) - Depth 0.3 -Total Square Cm 8.64 -Photo Taken Yes -Exudate Amt Small (1-33%) -Exudate Type Serosanguineous -Wound Margin Thickened -Granulation Amt None Present (0 %) -Necrosis Amt Large (67-100%) -Necrotic Tissue Type Eschar -Structure Exposed N/A -Texture (Lisa-wound Skin Appearance) Scarring -Moisture (Lisa-wound Skin Appearance Dry/Scaly ) -Color (Lisa-wound Skin Appearance) Erythema Hemosiderin Staining -Temperature (Lisa-wound Skin No Abnormality Appearance) (Pt Warm) -Tenderness on Palpation (Lisa-wound No Skin Appearance) -Ulcer Cleansing Wound Cleanser -Foul Odor after Cleansing No -Anesthetic Used 4% Lidocaine Solution #2 R [place] Cluster -Current Size (cm) - Length 23.2 -Current Size (cm) - Width 5.2 -Current Size (cm) - Depth 0.2 -Total Square Cm 120.64 -Photo Taken Yes -Classification - Allen Grading ( Grade 3 Diabetic Ulcer) -Exudate Amt Medium (34-66%) -Exudate Type Serosanguineous -Wound Margin Distinct, Outline Attached -Granulation Amt Medium (34-66%) -Granulation Quality Red -Necrosis Amt Medium (34-66%) -Necrotic Tissue Type Adherent Slough -Structure Exposed N/A -Texture (Lisa-wound Skin Appearance) Localized Edema Scarring -Moisture (Lisa-wound Skin Appearance Dry/Scaly ) -Color (Lisa-wound Skin Appearance) Erythema Hemosiderin Staining Mottled -Temperature (Lisa-wound Skin No Abnormality Appearance) (Pt Warm) -Ulcer Cleansing Wound Cleanser -Foul Odor after Cleansing No -Anesthetic Used 4% Lidocaine Solution #1 R 2nd toe amp/Arch/ Med Ankle -Current Size (cm) - Length 37.5 -Current Size (cm) - Width 4 -Current Size (cm) - Depth 3 -Total Square Cm 150.0 -Photo Taken Yes -Epithelialization None Present -Classification - Allen Grading ( Grade 5 Diabetic Ulcer) -Exudate Amt Large (67-100%) -Exudate Type Serosanguineous -Wound Margin Distinct, Outline Attached -Granulation Amt Medium (34-66%) -Granulation Quality Red -Necrosis Amt Medium (34-66%) -Necrotic Tissue Type Adherent Slough -Structure Exposed Fascia -Texture (Lisa-wound Skin Appearance) Localized Edema Scarring -Moisture (Lisa-wound Skin Appearance Weeping ) -Color (Lisa-wound Skin Appearance) Erythema Hemosiderin Staining Mottled -Temperature (Lisa-wound Skin No Abnormality Appearance) (Pt Warm) -Ulcer Cleansing Wound Cleanser -Foul Odor after Cleansing No -Anesthetic Used 4% Lidocaine Solution [Edema Assessment] -Right Calf (cm) 38 -Right Ankle (cm) 23.5 -Right Foot (cm) 37.3 -Left Calf (cm) 22.5 WC - Nurse 2 - General Ulcer CM Notes Start: 07/20/18 09:40 Freq: Status: Active Protocol: Activity Type Activity Date Activity User E-Sign Co-Sign Detail Recorded Client Recorded Date Recorded By Document 07/20/18 10:39 [id number] 07/20/18 11:21 07/20/18 10:39 Wound Center Nurse 2 [Procedure/Treatment] #8 r Knee -Time 10:39 -Correct Patient Yes -Correct Side, Site, Position Yes -Correct Procedure Yes -Procedure Performed Yes -Post Debridement Size (cm) - Length 1.6 -Post Debridement Size (cm) - Width 2.0 -Post Debridement Size (cm) - Depth 0.2 -Total Square Cm 3.20 -Wound/Ulcer Outcome Not Healed -Ulcer Cleansing Rinsed/ Irrigated with Saline -Foul Odor after Cleansing No -Bioengineered Tissue No -Topical Lidocaine (%) 4 -Bleeding Controlled with NA -Treatment Response Procedure Tolerated Well #7 L Lat LE Cluster -Time 10:39 -Correct Patient Yes -Correct Side, Site, Position Yes -Correct Procedure Yes -Procedure Performed Yes -Type of Procedure Debridement -Clinical Debridement Subcutaneous -Post Debridement Size (cm) - Length 11.1 -Post Debridement Size (cm) - Width 11.1 -Post Debridement Size (cm) - Depth 0.1 -Total Square Cm 123.21 -Wound/Ulcer Outcome Not Healed -Ulcer Cleansing Rinsed/ Irrigated with Saline -Foul Odor after Cleansing No -Bioengineered Tissue No -Topical Lidocaine (%) 4 -Bleeding Controlled with Pressure -Treatment Response Procedure Tolerated Well #6 L Post -Time 10:40 -Correct Patient Yes -Correct Side, Site, Position Yes -Correct Procedure Yes -Procedure Performed Yes -Type of Procedure Debridement -Clinical Debridement Subcutaneous -Post Debridement Size (cm) - Length 23.1 -Post Debridement Size (cm) - Width 6.1 -Post Debridement Size (cm) - Depth 0.1 -Total Square Cm 140.91 -Wound/Ulcer Outcome Not Healed -Ulcer Cleansing Rinsed/ Irrigated with Saline -Foul Odor after Cleansing No -Bioengineered Tissue No -Topical Lidocaine (%) 4 -Bleeding Controlled with Pressure -Treatment Response Procedure Tolerated Well #5 R Lat LE -Time 10:40 -Correct Patient Yes -Correct Side, Site, Position Yes -Correct Procedure Yes -Procedure Performed Yes -Type of Procedure Debridement -Clinical Debridement Subcutaneous -Post Debridement Size (cm) - Length 5.1 -Post Debridement Size (cm) - Width 4.1 -Post Debridement Size (cm) - Depth 0.2 -Total Square Cm 20.91 -Wound/Ulcer Outcome Not Healed -Ulcer Cleansing Rinsed/ Irrigated with Saline -Foul Odor after Cleansing No -Bioengineered Tissue No -Topical Lidocaine (%) 4 -Bleeding Controlled with Pressure -Treatment Response Procedure Tolerated Well #4 R post LE -Time 10:40 -Correct Patient Yes -Correct Side, Site, Position Yes -Correct Procedure Yes -Procedure Performed Yes -Type of Procedure Debridement -Clinical Debridement Subcutaneous -Post Debridement Size (cm) - Length 3.1 -Post Debridement Size (cm) - Width 2.6 -Post Debridement Size (cm) - Depth 0.1 -Total Square Cm 8.06 -Wound/Ulcer Outcome Not Healed -Ulcer Cleansing Rinsed/ Irrigated with Saline -Foul Odor after Cleansing No -Bioengineered Tissue No -Topical Lidocaine (%) 4 -Bleeding Controlled with Pressure -Treatment Response Procedure Tolerated Well #3 R Med LE -Time 10:57 -Correct Patient Yes -Correct Side, Site, Position Yes -Correct Procedure Yes -Procedure Performed Yes -Type of Procedure Debridement -Clinical Debridement Subcutaneous -Post Debridement Size (cm) - Length 4.9 -Post Debridement Size (cm) - Width 1.9 -Post Debridement Size (cm) - Depth 0.3 -Total Square Cm 9.31 -Wound/Ulcer Outcome Not Healed -Ulcer Cleansing Rinsed/ Irrigated with Saline -Foul Odor after Cleansing No -Bioengineered Tissue No -Topical Lidocaine (%) 4 -Bleeding Controlled with Pressure -Treatment Response Procedure Tolerated Well #2 R [place] Cluster -Time 10:57 -Correct Patient Yes -Correct Side, Site, Position Yes -Correct Procedure Yes -Procedure Performed Yes -Type of Procedure Debridement -Clinical Debridement Subcutaneous -Post Debridement Size (cm) - Length 23.3 -Post Debridement Size (cm) - Width 5.3 -Post Debridement Size (cm) - Depth 0.2 -Total Square Cm 123.49 -Wound/Ulcer Outcome Not Healed -Ulcer Cleansing Rinsed/ Irrigated with Saline -Foul Odor after Cleansing No -Bioengineered Tissue No -Topical Lidocaine (%) 4 -Bleeding Controlled with Pressure -Treatment Response Procedure Tolerated Well #1 R 2nd toe amp/Arch/ Med Ankle -Time 10:58 -Correct Patient Yes -Correct Side, Site, Position Yes -Correct Procedure Yes -Procedure Performed Yes -Type of Procedure Debridement -Clinical Debridement Subcutaneous -Post Debridement Size (cm) - Length 37.6 -Post Debridement Size (cm) - Width 4.1 -Post Debridement Size (cm) - Depth 3.0 -Total Square Cm 154.16 -Wound/Ulcer Outcome Not Healed -Ulcer Cleansing Rinsed/ Irrigated with Saline -Foul Odor after Cleansing No -Bioengineered Tissue No -Topical Lidocaine (%) 4 -Bleeding Controlled with Pressure -Treatment Response Procedure Tolerated Well [See Physician Procedure note for Specifics] Pain Scale: 0-10 Numeric [Pain] -Is Patient Pain Free? Yes Musculoskeletal: No Tenderness to Palpation of Joints or Extremities, Muscle Wasting, - - Open second and third ray resection right foot. Muscle atrophy noted. Compartments of feet and ankles and legs remain soft bilateral. Active range of motion toes noted bilateral Neurological: - - Lack of epicritic sensation light touch bilateral lower extremities Psych/Mental Status: Normal Affect, Appropriate Debridement Note Post-Debridement Measurements/Treatment WC - Nurse 2 - General Ulcer CM Notes Start: 07/20/18 09:40 Freq: Status: Active Protocol: Activity Type Activity Date Activity User E-Sign Co-Sign Detail Recorded Client Recorded Date Recorded By Document 07/20/18 10:39 TM [id number] 07/20/18 11:21 07/20/18 10:39 Wound Center Nurse 2 #8 r Knee -Time 10:39 -Correct Patient Yes -Correct Side, Site, Position Yes -Correct Procedure Yes -Procedure Performed Yes -Post Debridement Size (cm) - Length 1.6 -Post Debridement Size (cm) - Width 2.0 -Post Debridement Size (cm) - Depth 0.2 -Total Square Cm 3.20 -Wound/Ulcer Outcome Not Healed -Ulcer Cleansing Rinsed/ Irrigated with Saline -Foul Odor after Cleansing No -Bioengineered Tissue No -Topical Lidocaine (%) 4 -Bleeding Controlled with NA -Treatment Response Procedure Tolerated Well #7 L Lat LE Cluster -Time 10:39 -Correct Patient Yes -Correct Side, Site, Position Yes -Correct Procedure Yes -Procedure Performed Yes -Type of Procedure Debridement -Clinical Debridement Subcutaneous -Post Debridement Size (cm) - Length 11.1 -Post Debridement Size (cm) - Width 11.1 -Post Debridement Size (cm) - Depth 0.1 -Total Square Cm 123.21 -Wound/Ulcer Outcome Not Healed -Ulcer Cleansing Rinsed/ Irrigated with Saline -Foul Odor after Cleansing No -Bioengineered Tissue No -Topical Lidocaine (%) 4 -Bleeding Controlled with Pressure -Treatment Response Procedure Tolerated Well #6 L Post -Time 10:40 -Correct Patient Yes -Correct Side, Site, Position Yes -Correct Procedure Yes -Procedure Performed Yes -Type of Procedure Debridement -Clinical Debridement Subcutaneous -Post Debridement Size (cm) - Length 23.1 -Post Debridement Size (cm) - Width 6.1 -Post Debridement Size (cm) - Depth 0.1 -Total Square Cm 140.91 -Wound/Ulcer Outcome Not Healed -Ulcer Cleansing Rinsed/ Irrigated with Saline -Foul Odor after Cleansing No -Bioengineered Tissue No -Topical Lidocaine (%) 4 -Bleeding Controlled with Pressure -Treatment Response Procedure Tolerated Well #5 R Lat LE -Time 10:40 -Correct Patient Yes -Correct Side, Site, Position Yes -Correct Procedure Yes -Procedure Performed Yes -Type of Procedure Debridement -Clinical Debridement Subcutaneous -Post Debridement Size (cm) - Length 5.1 -Post Debridement Size (cm) - Width 4.1 -Post Debridement Size (cm) - Depth 0.2 -Total Square Cm 20.91 -Wound/Ulcer Outcome Not Healed -Ulcer Cleansing Rinsed/ Irrigated with Saline -Foul Odor after Cleansing No -Bioengineered Tissue No -Topical Lidocaine (%) 4 -Bleeding Controlled with Pressure -Treatment Response Procedure Tolerated Well #4 R post LE -Time 10:40 -Correct Patient Yes -Correct Side, Site, Position Yes -Correct Procedure Yes -Procedure Performed Yes -Type of Procedure Debridement -Clinical Debridement Subcutaneous -Post Debridement Size (cm) - Length 3.1 -Post Debridement Size (cm) - Width 2.6 -Post Debridement Size (cm) - Depth 0.1 -Total Square Cm 8.06 -Wound/Ulcer Outcome Not Healed -Ulcer Cleansing Rinsed/ Irrigated with Saline -Foul Odor after Cleansing No -Bioengineered Tissue No -Topical Lidocaine (%) 4 -Bleeding Controlled with Pressure -Treatment Response Procedure Tolerated Well #3 R Med LE -Time 10:57 -Correct Patient Yes -Correct Side, Site, Position Yes -Correct Procedure Yes -Procedure Performed Yes -Type of Procedure Debridement -Clinical Debridement Subcutaneous -Post Debridement Size (cm) - Length 4.9 -Post Debridement Size (cm) - Width 1.9 -Post Debridement Size (cm) - Depth 0.3 -Total Square Cm 9.31 -Wound/Ulcer Outcome Not Healed -Ulcer Cleansing Rinsed/ Irrigated with Saline -Foul Odor after Cleansing No -Bioengineered Tissue No -Topical Lidocaine (%) 4 -Bleeding Controlled with Pressure -Treatment Response Procedure Tolerated Well #2 R [place] Cluster -Time 10:57 -Correct Patient Yes -Correct Side, Site, Position Yes -Correct Procedure Yes -Procedure Performed Yes -Type of Procedure Debridement -Clinical Debridement Subcutaneous -Post Debridement Size (cm) - Length 23.3 -Post Debridement Size (cm) - Width 5.3 -Post Debridement Size (cm) - Depth 0.2 -Total Square Cm 123.49 -Wound/Ulcer Outcome Not Healed -Ulcer Cleansing Rinsed/ Irrigated with Saline -Foul Odor after Cleansing No -Bioengineered Tissue No -Topical Lidocaine (%) 4 -Bleeding Controlled with Pressure -Treatment Response Procedure Tolerated Well #1 R 2nd toe amp/Arch/ Med Ankle -Time 10:58 -Correct Patient Yes -Correct Side, Site, Position Yes -Correct Procedure Yes -Procedure Performed Yes -Type of Procedure Debridement -Clinical Debridement Subcutaneous -Post Debridement Size (cm) - Length 37.6 -Post Debridement Size (cm) - Width 4.1 -Post Debridement Size (cm) - Depth 3.0 -Total Square Cm 154.16 -Wound/Ulcer Outcome Not Healed -Ulcer Cleansing Rinsed/ Irrigated with Saline -Foul Odor after Cleansing No -Bioengineered Tissue No -Topical Lidocaine (%) 4 -Bleeding Controlled with Pressure -Treatment Response Procedure Tolerated Well Pain Scale: 0-10 Numeric Is Patient Pain Free? Yes Wound debrided: foot Laterality: Right Wound Grade/Stage: grade 3 Type of Debridement: Excisional debridement Anesthesia Used: 4% Lidocaine Solution Depth: in the subcutaneous layer Percentage of wound debrided: 10 Instrument Used: #15 blade, Forceps Tissue Removed: fibrous, devitalized subcutaneous and tendon, biofilm, slough Severity: Necrosis of Muscle Amount of bleeding with debridement: Mild Bleeding Controlled with: Pressure Patient tolerated procedure well - Additional Wound Wound debrided: leg Laterality: Right Wound Grade/Stage: grade 1 Type of Debridement: Excisional debridement Anesthesia Used: 4% Lidocaine Solution Depth: in the subcutaneous layer Percentage of wound debrided: 100 Instrument Used: #15 blade Tissue Removed: fibrous, devitalized subcutaneous, biofilm, slough Severity: Fat Layer Exposed Amount of bleeding with debridement: Mild Bleeding Controlled with: Pressure Patient tolerated procedure: Patient tolerated procedure well - Additional Wound Wound debrided: leg Laterality: Left Wound Grade/Stage: grade 1 Type of Debridement: Excisional debridement Anesthesia Used: 4% Lidocaine Solution Depth: in the subcutaneous layer Percentage of wound debrided: 100 Instrument Used: #15 blade Tissue Removed: fibrous, devitalized subcutaneous, biofilm, slough Severity: Fat Layer Exposed Amount of bleeding with debridement: Mild Bleeding Controlled with: Pressure Patient tolerated procedure: Patient tolerated procedure well Assessment/Plan Assessment: Open second third ray resection secondary to osteomyelitis in infection and necrotizing fasciitis. It is also noted he is previous bilateral leg fasciotomies and debridements and irrigation performed 1 month ago. Ulcer right foot and ankle with fat and tendon layer exposed. Ulcer right leg nearly circumferential with fat layer exposed. Ulcer left leg with fat layer exposed. Peripheral vascular disease suspected. Diabetic neuropathy. Malnutrition suspected. 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 Workup for autoimmune disease in process. Delayed healing. Gait impairment and fall risk. Other comorbidities Plan: I reviewed and discussed his case with the patient and the patient's . Tendon and subcutaneous debridements were performed as noted in the clinical panel. Recommended changing the dressings daily with half-way facility staff assistance. A wound VAC and advanced wound care products will be considered in the future. He was reassured local signs of infection have resolved. He is scheduled for 6 weeks IV antibiotic of Unasyn. Infectious disease was on consult during his last [facility] admission. His labs will be monitored while on this medication including BMP, CBC, and ESR; this will be requested for review from [facility]. I recommend he avoids laying directly on his wounds to reduce pressure. And concerned about his perfusion to his limbs and he has an arterial Doppler scheduled with Dr. Morgan's staff on August 02, 2018 and the results are pending. To continue with nutritional supplementation optimize healing; I recommend Juan. I recommend he sustained from smoking and alcohol activities to optimize healing as well. His workup for vasculitis and underlying autoimmune disorder is also pending. A punch biopsy was sent during his last surgical intervention on June 10 and I will seek the final report; is not available in the computer at this time. He had initial screening labs and so far he has a negative RA titer, HL of the 27, KEVIN, anti-CCP, and rheumatoid factor. Several his antibody screenings were not reportable. I will communicate this workup with his current managing physician at [facility], Dr. Perdomo, to follow through on this. He understands he is high risk for limb loss and his level perfusion will better clarified after his arterial Doppler which will determine if wound care hyperbaric oxygen combination versus and is a better option. He understands his goals are infection prevention, pain control, and functional progression. I answered all his questions. I recommend follow-up at the wound care center 1 week or call sooner if he has any questions.
== END 2018-07-22 23:59 ==
LOC: WC 09:23
PROVIDERS: Family Provider Family Medicine; PCP Family Medicine; Visit Provider Podiatrist
DX: E11.622 Type 2 diabetes mellitus with other skin ulcer (principal); E11.51 Type 2 diabetes mellitus with diabetic peripheral angiopathy without gangrene; Z79.01 Long term (current) use of anticoagulants; E11.621 Type 2 diabetes mellitus with foot ulcer; E11.42 Type 2 diabetes mellitus with diabetic polyneuropathy; L97.513 Non-pressure chronic ulcer of other part of right foot with necrosis of muscle; L97.822 Non-pressure chronic ulcer of other part of left lower leg with fat layer exposed; L97.812 Non-pressure chronic ulcer of other part of right lower leg with fat layer exposed
CPT/HCPCS: 11042; 11043; 11045; 99214; G0463

== ENCOUNTER → 2018-08-02 09:54 | Outpatient (CLI) | payer OTHER, SELFPAY ==
--- NOTE | 2018-08-02 09:59 | ADUL_ITS ---
Reason For Study: atherosclerosis Right Velocities Common Femoral Artery, mid = 63.6 cm./sec. Supf Femoral Artery, prox = 77.8 cm./sec. Supf Femoral Artery, mid = 54.2 cm./sec. Supf Femoral Artery, dist. = 40.1 cm./sec. Profunda Femoral Artery = 77.0 cm./sec. Popliteal Artery, mid = 36.7 cm./sec. Post. Tibial Artery, prox = 52.9 cm./sec. Post. Tibial Artery, mid = 54.7 cm./sec. Peroneal Artery, mid = 60.2 cm./sec. Procedure The exam was of fair technical quality due to open wounds.. Limited study due to large open wounds. Interpretation Summary 1. limited study but no stenosis where seen. Ordering Physician: Sandoval Morgan Performed By: Diego Whalen RVT
--- NOTE | 2018-08-03 08:25 | LEAS ---
Arterial Study - Arterial Study Arterial Study: Date of scan 08/02/[address] Morgan History: Patient with lower extremity wounds with concern for atherosclerosis. Interpretation: Right lower extremity with normal pulsatile flow noted down at the ankle decreased waveform noted out through the digit. Duplex shows near triphasic waveform of both vessels at the ankle with an DOROTHY of 1.01 of the PT and 1.67 in the DP. There is some peak waveform to the DP and this may be falsely elevated. Left lower extremity again with a fairly normal waveform at the ankle also decrease out to the digits duplex shows more of a biphasic flow of the PT with an DOROTHY 1.27 a biphasic to may be near triphasic of the DP with an DOROTHY 1.27. Impression: 1. No evidence of significant arterial occlusive disease at rest of the right lower extremity with an DOROTHY of 1.67 in the DP which is probably falsely elevated and more normal PT at 1.01. Further evaluation as clinically warranted. 2. Left lower extremity with no evidence of significant arterial occlusive disease at rest with a near triphasic waveform and an DOROTHY 1.27
== END ==
PROVIDERS: Family Provider Family Medicine; PCP Family Medicine; Visit Provider Surgery Vascular Surgery
DX: I70.211 Atherosclerosis of native arteries of extremities with intermittent claudication, right leg (principal)
CPT/HCPCS: 93922; 93926

== ENCOUNTER 2018-08-05 13:16 | Inpatient (IN) | payer OTHER, SELFPAY ==
[2018-08-05] VITALS (11 sets, daily range): BP systolic 88–106; BP diastolic 63–81; PULSE 61–78; RESP 15–24; TEMP 36.3–36.7; O2SAT 95–100; BMI 33.5; BMI 32.0
--- NOTE | 2018-08-05 13:39 | RAD_ITS ---
STUDY: X-RAY CHEST REASON FOR EXAM: Male, 63 years old. Cough TECHNIQUE: Single AP portable view of the chest. COMPARISON: 06/14/2018 FINDINGS: Cardiac monitoring leads overlie the chest. There is a right upper extremity PIC catheter with the tip in the SVC. There is bilateral lower lobe airspace disease. Bilateral pleural effusions are seen. There is moderate cardiac enlargement. Normal mediastinum and clifford. Normal visualized pulmonary arteries. There is atherosclerotic calcification of the aortic arch with tortuosity. There are diffuse degenerative changes of the visualized thoracic spine. Normal visualized ribs, clavicles, and shoulders. There is no demonstrated abnormality of the visualized soft tissue structures of the upper abdomen. RAD/Chest 1 View (Portable) IMPRESSION: Bilateral lower lobe airspace disease with bilateral pleural effusions. Electronically Signed: Gaston Crandall DO at 14:37 EDT Tel , Service support ,
--- NOTE | 2018-08-05 13:40 | EKG12_ITS ---
Test Reason : HYPOTENSION Blood Pressure : / mmHG Vent. Rate : 074 BPM Atrial Rate : 267 BPM P-R Int : 000 ms QRS Dur : 104 ms QT Int : 418 ms P-R-T Axes : 000 -08 155 degrees QTc Int : 463 ms Atrial fibrillation Low voltage QRS Nonspecific T wave abnormality Prolonged QT Abnormal ECG Confirmed by VITA RAMIREZ, GERRY ([id number]), development editor ROSSANA ROB ([id number] on 08/08/2018 3:46:05 PM Referred By: FLAVIA Confirmed By:GERRY GORMAN MD
[2018-08-05] MEDS: 0.9% Normal Saline 1,000 ML 15 ML IV (13:48)
[2018-08-05 14:13] LABS: Absolute Lymphocyte Count 0.48 X10^3/ul (0.83-4.51); Absolute Neutrophil Count 5.2 X10^3/uL (2.0-7.7); Eosinophil# 0.06 X10^3/uL; Hematocrit 33.7 % (40-54); Hemoglobin 9.9 g/dl (13.0-16.5); Lymphocyte # 0.48 X10^3/ul (4.0); Lymphocyte % 7.8 % (19-41); Mean Corp Hgb Conc 29.4 g/gl (32-36); Mean Corpuscular Hgb 26.9 pg (27.0-32.0); Mean Corpuscular Volume 91.6 fL (80-94); Mean Platelet Vol. 12.4 fl (6.2-12.0); Monocyte# 0.42 X10^3/uL; Monocyte% 6.8 % (0-10); Neutrophil # 5.17 X10^3/uL (2.7-7.7); Neutrophil % 84.2 % (47-70); Platelet Count 143 K/mm3 (150-450); RBC Distribution Width CV 17.7 % (11.6-14.6); RBC Distribution Width SD 59.6 fl (35.1-43.9); Red Blood Count 3.68 M/mm3 (4.6-6.2); White Blood Count 6.1 K/mm3 (4.4-11.0)
[2018-08-05 14:14] LABS: Differential Indicated SCAN CRITERIA MET; POSITIVE COUNT NO; POSITIVE DIFFERENTIAL YES; POSITIVE MORPHOLOGY NO
[2018-08-05 14:21] LABS: Prothrombin Time (Protime)PT. 60.1 SECONDS (11.7-14.9)
[2018-08-05 14:23] LABS: International Normalized Ratio 6.9
--- NOTE | 2018-08-05 14:34 | ED.RN ---
BUN [address] cuevas aware
[2018-08-05 14:35] LABS: AST(SGOT) 21 U/L (15-37); Alanine Aminotransfer ALT/SGPT 20 U/L (16-61); Albumin, Serum 2.4 g/dL (3.2-5.0); Alkaline Phosphatase 140 U/L (45-117); Anion Gap 11 (5-15); BUN 119 mg/dL (7-18); BUN/Creat Ratio 42.3 RATIO (10-20); Bilirubin, Direct 1.09 mg/dL (0.00-0.30); Calcium,Total 8.5 mg/dL (8.5-10.1); Chloride 99 mmol/L (98-107); Creatinine, Serum 2.81 mg/dL (0.70-1.30); EST Glomerular Filtration Rate 24 mL/min (>60); Est Glom Filt Rate - Afr Amer 29 mL/min (>60); Estimated Creatinine Clearance 30.88 ml/min; Globulin 3.3 g/dL (2.2-4.2); Glucose 183 mg/dL (74-106); Lipase 62 U/L (73-393); Ovalocyte 3+; Potassium 4.4 mmol/L (3.5-5.1); Protein, Total 5.7 g/dL (6.4-8.2); Sodium Level 136 mmol/L (136-145)
[2018-08-05 14:37] LABS: Lactic Acid 1.1 mmol/L (0.4-2.0)
[2018-08-05 14:39] LABS: BNP,B-Type NATRIURETIC PEPTIDE 904.3 pg/mL (0-100)
--- NOTE | 2018-08-05 15:11 | NURSING ---
DR FISH FOR DR TORRES
--- NOTE | 2018-08-05 15:11 | PCM.HP.STD ---
Problem List 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 (2) NLD (necrobiosis lipoidica diabeticorum) Status: Chronic Comment: bilateral lower extremities (3) Pressure sore of left ischium, stage 2 Status: Chronic Comment: at least a Stage II. Anticipate Stage III or IV if excision done. (4) Right ischial pressure sore, stage 2 Status: Chronic Comment: at least a Stage II. Anticipate Stage III or IV if excision done. (5) Pressure ulcer of sacral region, stage 2 Status: Chronic Comment: at least a Stage II. Anticipate Stage III or IV if excision done. (6) Vasculitis Status: Acute (7) Abscess of right leg Status: Acute (8) Abscess of right foot Status: Acute (9) Gangrene Status: Acute (10) Severe sepsis Status: Acute (11) Osteomyelitis Status: Suspected (12) PVD (peripheral vascular disease) Status: Suspected (13) Anemia Status: Chronic (14) Chronic anticoagulation Status: Chronic (15) Murmur, cardiac Status: Chronic (16) Cardiomyopathy Status: Chronic Comment: 47 % EF in 2013 (17) Pulmonary HTN Status: Chronic Comment: PA systolic 51 in 2013 (18) Tobacco dependence due to cigarettes Status: Chronic (19) Diabetic wet gangrene of the foot Status: Acute (20) CVA, old, hemiparesis Status: Chronic Comment: left side weakness....stroke in 2013 (21) BPH (benign prostatic hyperplasia) Status: Suspected (22) Urinary incontinence Status: Chronic (23) Ulcer of right lower extremity with fat layer exposed Status: Chronic (24) Ulcer of left lower extremity with fat layer exposed Status: Chronic (25) 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 (26) Ulcer of right foot with necrosis of muscle Status: Chronic (27) Osteomyelitis Status: Chronic (28) Right foot infection Status: Chronic (29) Type 2 diabetes mellitus with diabetic polyneuropathy Status: Chronic (30) Localized edema Status: Chronic (31) Malnutrition Status: Chronic (32) Abscess of left leg Status: Acute (33) Ulcer of right lower extremity with fat layer exposed Status: Acute (34) Ulcer of left lower extremity with fat layer exposed Status: Acute (35) Vasculitic ulcer of lower extremity Status: Suspected (36) Tobacco user Status: Chronic (37) HLD (hyperlipidemia) Status: Chronic (38) DM2 (diabetes mellitus, type 2) Status: Chronic (39) Depression Status: Chronic (40) Chronic low back pain Status: Chronic (41) Benign essential HTN Status: Chronic History of Present Illness Date of Admission: 08/05/18 Chief Complaint: Low blood pressure, hallucinations. The patient is a 63 year old M who presents to ER from SNF due to low blood pressure, hallucinations, decreased urine output, and shortness of breath. at bedside states his symptoms be began a couple days ago. Patient had recent hospital admission May 2018 for deep wound infection of the right foot with abscess and osteomyelitis, gangrene. Amputation was discussed at that time however patient was not felt to be stable enough. He was transferred from [facility] to [facility]. He was discharged from [facility] to [facility] 07/11/2018. notes patient is immobile and nursing facility uses Swapnil lift to move patient. She states patient has had significant shortness of breath and hallucinations. Wet cough, nonproductive. Patient reports decreased urine output. He denies fever, chills. Denies dysuria. Increased abdominal and bilateral thigh edema. Patient follows weekly with Dr. Gruber at the [facility] for dressing changes. He continues to have extensive wounds to bilateral lower extremities, right greater than left. His other past medical history includes chronic diastolic CHF, paroxysmal atrial fibrillation, hypertension, type 2 diabetes mellitus, valvular disease with severe mitral regurg, tricuspid regurg, severe pulmonary hypertension, chronic iron deficiency anemia, history of CVA with mild left hemiparesis, depression, hyperlipidemia, hypertension. 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 Anticipate Stage III or IV if excision done. Right ischial pressure sore, stage 2 (Chronic) at least a Stage II. Anticipate Stage III or IV if excision done. Pressure ulcer of sacral region, stage 2 (Chronic) at least a Stage II. Anticipate Stage III or IV if excision done. Anemia (Chronic) Chronic anticoagulation (Chronic) Murmur, cardiac (Chronic) Cardiomyopathy (Chronic) 47 % EF in 2012 Pulmonary HTN (Chronic) PA systolic 51 in 2012 Tobacco dependence due to cigarettes (Chronic) CVA, old, hemiparesis (Chronic) left side weakness....stroke in 2013 Urinary incontinence (Chronic) Ulcer of right lower extremity with fat layer exposed (Chronic) Ulcer of left lower extremity with fat layer exposed (Chronic) 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) Ulcer of right foot with necrosis of muscle (Chronic) Osteomyelitis (Chronic) Right foot infection (Chronic) Type 2 diabetes mellitus with diabetic polyneuropathy (Chronic) Localized edema (Chronic) Malnutrition (Chronic) Tobacco user (Chronic) HLD (hyperlipidemia) (Chronic) DM2 (diabetes mellitus, type 2) (Chronic) Depression (Chronic) Chronic low back pain (Chronic) Benign essential HTN (Chronic) Allergies No Known Allergies Allergy (Verified 08/05/18 13:36) Home Medications: Ambulatory Orders Medication Instructions Recorded Aspirin [Adult Aspirin] 81 mg PO DAILY 06/07/18 Atenolol 50 mg PO BID 06/07/18 Cholecalciferol (VIT D3) [Vitamin 1,000 unit PO DAILY 06/07/18 D3] Acetaminophen [Tylenol Tablet] 650 mg PO Q6H PRN PRN tablet 06/14/18 Ascorbic Acid [Vitamin C] 500 mg PO BIDCM tablet 06/14/18 Tamsulosin HCl [Flomax] 0.4 mg PO DAILY@1730 capsule 06/14/18 Zinc Sulfate (50mg elemental) 220 mg PO DAILY capsule 06/14/18 [Zinc Sulfate] Argin/Glut/Cahmb/Collag/Mv-Min 1 each PO BID 08/05/18 [Juan Packet] Atorvastatin Calcium [Lipitor] 10 mg PO QHS 08/05/18 Diltiazem CD [Cardizem CD] 120 mg PO DAILY 08/05/18 Famotidine 20 mg PO DAILY 08/05/18 Furosemide [Lasix] 20 mg PO DAILY 08/05/18 Insulin Lispro [Humalog] See Protocol SQ 4X/DAY 08/05/18 Multivitamins,Ther W-Minerals 1 tablet PO DAILY 08/05/18 [Multivitamin With Minerals] Paroxetine HCl [Paxil] 40 mg PO DAILY 08/05/18 Warfarin [Coumadin (PBKC)] 6 mg PO DAILY 08/05/18 glipiZIDE [Glucotrol] 10 mg PO DAILY@0730 08/05/18 Surgical History: tonsillectomy, - - Multiple wound debridements bilateral lower extremities. Psychiatric History: Depression Lives: Assisted Smoking Status: Former smoker Alcohol: Sober - *Family History Paternal History Items: Heart Disease - His father had atrial fibrillation and an AICD/pacemaker Maternal History Items: Diabetes - His mother had severe diabetes mellitus and had amputations of her lower extremities. Review of Systems Constitutional: Denies: Chills, Fever, Weight Change HEENT: Denies: Head Aches, Sinus Congestion, Sinus Drainage Cardiovascular: Reports: Edema - Abdomen, bilateral thigh. Denies: Chest Pain, Palpitations Respiratory: Reports: Cough, Shortness of Breath. Denies: Sputum production Gastrointestinal: Denies: Abdominal Pain, Constipation, Diarrhea, Nausea, Vomiting Genitourinary: Reports: Retention. Denies: Dysuria, Hematuria Musculoskeletal: Denies: Joint Pain, Joint Tenderness Skin: Reports: Wounds - Bilateral lower extremities, bilateral upper extremities.. Denies: Rash Neurological: Reports: - - Mild left hemiparesis secondary to previous CVA.. Denies: Focal weakness, Numbness, Tingling Psychiatric: Reports: Depression Hematologic/ Lymphatic: Denies: Easy Bruising, Easy Bleeding VTE Information - Inpt Only VTE Present on Admission: No VTE Mechan Device Prophylaxis: None VTE Pharm Prophylaxis ordered?: Yes Patient Problems: Active and Suspected Problems PVD (peripheral vascular disease) (Suspected) - Physical Exam General: Alert, Oriented x3, Cooperative, No apparent distress HEENT: Atraumatic, PERRLA, EOMI, Normocephalic Oral: Moist Mucosa Neck: Supple, No JVD, Negative Carotid Bruits Lungs: Clear to auscultation, Diminished Cardiovascular: - - Atrial for ablation, rate controlled. Abdomen: Bowel Sounds Present, Non Tender, Distended, Obese Extremities: No clubbing, No cyanosis, Edema - Abdominal, bilateral upper thigh +2 Skin: - - Extensive bilateral lower extremity wounds, right greater than left. Bilateral upper extremity scabbing secondary to picking. Musculoskeletal: No Tenderness to Palpation of Joints or Extremities, Muscle Wasting Neurological: Cranial nerves II-XII grossly intact, - - Mild left-sided hemiparesis secondary to previous CVA. Psych/Mental Status: Normal Affect, Appropriate Vital Signs Temp Pulse Resp BP Pulse Ox 97.4 F L 76 18 102/70 100 08/05/18 13:17 08/05/18 14:57 08/05/18 14:57 08/05/18 14:57 08/05/18 14:57 Oxygen Flow Rate (L/min) 3 Oxygen Delivery Method Room Air Weight: 261 lb 3.964 oz Body Mass Index (BMI) 33.5 Finger Stick Blood Glucose 155 Laboratory Tests Past 24 Hrs 08/05/18 08/05/18 08/05/18 13:52 13:52 13:52 WBC 6.1 RBC 3.68 L Hgb 9.9 L Hct 33.7 L MCV 91.6 MCH 26.9 L MCHC 29.4 L RDW 17.7 H RDW Differential 59.6 H Plt Count 143 L MPV 12.4 H Immature Gran % (Auto) 0.200 Neut % (Auto) 84.2 H Lymph % (Auto) 7.8 L [place] % (Auto) 6.8 Eos % (Auto) 1.0 Baso % (Auto) 0.0 Absolute Neuts (auto) 5.2 Absolute Lymphs (auto) 0.48 L Total Counted Not Reportable Ovalocytes 3+ PT 60.1 H INR 6.9 H* Sodium 136 Potassium 4.4 Chloride 99 Carbon Dioxide 26.0 Anion Gap 11 BUN 119 H* Creatinine 2.81 H Estim Creat Clear Calc 30.88 Est GFR (MDRD) Af Amer 29 L Est GFR (MDRD) Non-Af 24 L BUN/Creatinine Ratio 42.3 H Glucose 183 H Lactic Acid Calcium 8.5 Total Bilirubin 1.50 H Direct Bilirubin 1.09 H AST 21 ALT 20 Alkaline Phosphatase 140 H B-Natriuretic Peptide Total Protein 5.7 L Albumin 2.4 L Globulin 3.3 Lipase 62 L 08/05/18 08/05/18 13:52 13:52 WBC RBC Hgb Hct MCV MCH MCHC RDW RDW Differential Plt Count MPV Immature Gran % (Auto) Neut % (Auto) Lymph % (Auto) [place] % (Auto) Eos % (Auto) Baso % (Auto) Absolute Neuts (auto) Absolute Lymphs (auto) Total Counted Ovalocytes PT INR Sodium Potassium Chloride Carbon Dioxide Anion Gap BUN Creatinine Estim Creat Clear Calc Est GFR (MDRD) Af Amer Est GFR (MDRD) Non-Af BUN/Creatinine Ratio Glucose Lactic Acid 1.1 Calcium Total Bilirubin Direct Bilirubin AST ALT Alkaline Phosphatase B-Natriuretic Peptide 904.3 H Total Protein Albumin Globulin Lipase Assessment/Plan All Active Problems Vasculitis (Acute) Abscess of right leg (Acute) Abscess of right foot (Acute) Gangrene (Acute) Severe sepsis (Acute) 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 Acute encephalopathy-unclear etiology. Check urine for culture. Obtain blood cultures. Check ABG, ammonia. 2. Acute kidney injury on chronic kidney disease stage III-suspect secondary to urinary retention. Aponte placed in ER. Send urine for culture. Trend BMP. 3. Acute on chronic diastolic CHF-chest x-ray on admission shows bilateral pleural effusions. Patient reports orthopnea. Caution with diuresis given GUALBERTO. Aponte placed in ER for strict I's and O's. Daily weight. Echocardiogram May 2018 showed an EF of 50%, moderately severe mitral valve insufficiency, moderate tricuspid valve insufficiency, RVSP estimated to be 67 mmHg, severe pulmonary hypertension. Consult cardiology. 4. Paroxysmal atrial fibrillation with supratherapeutic INR-Coumadin on hold. Trend INR. 5. Chronic extensive wounds including bilateral lower extremities, right greater than left, ischial and sacral-frequent position changes. Wound nurse consult. Consult Dr. Gruber. Wounds present on admission. History of multiple organisms and wound cultures. History of osteomyelitis. 6. Hypertension-hold home regimen secondary to hypotension on admission. Gentle IV fluids. Continue to monitor. 7. Hyperlipidemia-continue statin. 8. Type 2 diabetes mellitus-hold oral regimen. Accu-Cheks before meals at bedtime with sliding scale insulin. Check hemoglobin A1c. 9. Chronic iron deficiency anemia/anemia of chronic disease-stable, trend CBC. 10. History of CVA with mild left hemiparesis-continue aspirin, statin. PT/OT. 11. Debility/weakness-resides at SNF. Reported to use Swapnil lift. Unable to ambulate. PT/OT. 12. Depression-continue home paroxetine regimen. 13. Protein calorie malnutrition-nutrition consult. 14. Obesity-nutrition consult for dietary recommendations. DVT prophylaxis-Coumadin on hold secondary to supratherapeutic INR. This patient was seen by NADINE Chow under the supervision of Dr. Hunter.
--- NOTE | 2018-08-05 15:14 | NURSING ---
PCU RENAL FAILURE, SUPRATHERAPEUTIC INR, HYPOTENSION WHITE
--- NOTE | 2018-08-05 15:27 | ED.RN ---
JAKY LOPEZ AND DR FISH IN WITH PT.
--- NOTE | 2018-08-05 16:03 | ED.VISSUMM ---
- ER Visit Summary Date of Service: 08/05/18 Chief Complaint: Hypotension History of Present Illness: The patient is a 63 M he states he has no significant complaint, but does admit to his blood pressure being low the last couple days. states his blood pressure has been dropping for the past week or so. He had a fairly recent admission with sepsis and they wanted to ensure he was not getting sick again. He has had mild cough. She has noted some confusion and states he occasionally has visual hallucinations where he thinks somebody is in the room with him. He does go to the wound center for bilateral lower leg wounds every Wednesday. She states his dressings were just changed 2 days ago and wounds are looking good. He has been off antibiotics since July 21. Physical Examination: Blood pressure is initially documented at 88/64, but 106/81 the time of my exam. Temperature is 97.4, heart rate 70, respiratory rate 16, pulse 100% on nasal cannula. Patient is sitting upright in bed no acute distress. He is alert and talkative. Heart is regular rate and rhythm. Lung sounds are clear. Abdomen is soft but distended. Active bowel sounds are noted throughout. He does have 3+ lower extremity edema. The bilateral lower legs are wrapped. Test Results: Portable chest x-ray shows bilateral lower lobe airspace disease with bilateral pleural effusions. EKG is A. fib at 74 with no sign of ischemia. CBC was normal white count. Hemoglobin is 9.9 and platelet count is 143,000. Chemistry studies reveal glucose of 183, BUN 119, creatinine 2.81. LFTs revealed total bili 1.5, direct bili 1.09, alk phos 140. BNP is 904. Lactate is normal. Emergency Department Course and Treatment: Fluids were given at O. I spoke with hospitalist who will admit the patient. We will have to gently hydrate to help improve kidney function, yet monitor his fluid overload. Treatment Plan: [] Disposition: Admit Impression: 1. Acute on chronic renal failure 2. Supratherapeutic INR 3. Hypotension, improved This note was generated with [employer] dictation software. It may contain incorrect words, spelling, and punctuation that were not noted in review of the chart prior to signing ED Disposition - Plan for ED Patient: Chief Complaint: Hypotension
--- NOTE | 2018-08-05 16:06 | ED.DCSUM_ITS ---
- ER Visit Summary Date of Service: 08/05/18 Chief Complaint: Hypotension History of Present Illness: The patient is a 63 M he states he has no significant complaint, but does admit to his blood pressure being low the last couple days. states his blood pressure has been dropping for the past week or so. He had a fairly recent admission with sepsis and they wanted to ensure he was not getting sick again. He has had mild cough. She has noted some confusion and states he occasionally has visual hallucinations where he thinks somebody is in the room with him. He does go to the wound center for bilateral lower leg wounds every Wednesday. She states his dressings were just changed 2 days ago and wounds are looking good. He has been off antibiotics since July 21. Physical Examination: Blood pressure is initially documented at 88/64, but 106/ 81 the time of my exam. Temperature is 97.4, heart rate 70, respiratory rate 16 , pulse 100% on nasal cannula. Patient is sitting upright in bed no acute distress. He is alert and talkative. Heart is regular rate and rhythm. Lung sounds are clear. Abdomen is soft but distended. Active bowel sounds are noted throughout. He does have 3+ lower extremity edema. The bilateral lower legs are wrapped. Test Results: Portable chest x-ray shows bilateral lower lobe airspace disease with bilateral pleural effusions. EKG is A. fib at 74 with no sign of ischemia. CBC was normal white count. Hemoglobin is 9.9 and platelet count is 143,000. Chemistry studies reveal glucose of 183, BUN 119, creatinine 2.81. LFTs revealed total bili 1.5, direct bili 1.09, alk phos 140. BNP is 904. Lactate is normal. Emergency Department Course and Treatment: Fluids were given at O. I spoke with hospitalist who will admit the patient. We will have to gently hydrate to help improve kidney function, yet monitor his fluid overload. Treatment Plan: [] Disposition: Admit Impression: 1. Acute on chronic renal failure 2. Supratherapeutic INR 3. Hypotension, improved This note was generated with opendorse dictation software. It may contain incorrect words, spelling, and punctuation that were not noted in review of the chart prior to signing ED Disposition - Plan for ED Patient: Chief Complaint: Hypotension
--- NOTE | 2018-08-05 16:10 | CM.ED ---
Social Work Note Face to face with pt and spouse, Leticia, for initial assessment. Introduced self and role at [facility]. The pt is confused and answers questions. Leticia reports that upon discharge from [facility] in May the pt went to [facility] and was discharged from there on July 11. Upon discharge from [facility] the pt went to [facility] for rehabilitation where they anticipate that he will return at discharge from [facility]. DME used at the SNF per is a wheelchair. The live in a one-story home with 3 AILYN, but the pt has not been home since his May admission. Confirm the pt's PCP is Dr. Sparks, and his specialists consist of Dr. Ponce and Dr. Gruber. Preferred pharmacy is [facility] in [place], but upon discharge back to [facility] scripts will be filled through [facility]'s pharmacy. No further needs at this time and spouse aware that SW on assigned unit will assist with discharge planning. Plan: Return to [facility] pending pre-cert. Huyen Stephenson, SPRAY DRY OPERATOR, SOLAR ENERGY SALES SPECIALIST
[2018-08-05 16:17] LABS: Bacteria 0 SEEN /hpf (None Seen); Mucous, Urine 0 SEEN /hpf (<or=2+); Red Blood Cells-Urine 0 SEEN /hpf (0-5); Squamous Epithelial Cells - UA 0 SEEN /hpf (0-5)
[2018-08-05 16:22] LABS: Color, Urine Yellow (Yellow); Glucose, Dipstick Normal (Normal); Ketone-Dipstick Negative (Negative); Leukocyte Esterase-Dipstick 100 /ul (Negative); Nitrite-Dipstick Negative (Negative); Occult Blood-Urine Negative /ul (Negative); Protein-Dipstick Negative (Negative); Urine Bilirubin Dipstick Negative (Negative); Urine Clarity Clear (Clear); Urine Urobilinogen Normal (Normal); Urine pH 6.5 (5.0 - 8.0)
[2018-08-05 17:09] LABS: White Blood Cells 0-5 SEEN /hpf (0-5)
--- NOTE | 2018-08-05 18:02 | PCM.CONS.C ---
Reason for Consult Date of Consultation: 08/05/18 Reason for Consultation: Shortness of breath. History of Present Illness: The patient is a 63 year old M with a history of hypertension, diabetes mellitus, hyperlipidemia, previous cerebrovascular accident peripheral vascular disease and paroxysmal atrial fibrillation. He also has a history of nonhealing wounds and was recently in a extended care facility. He apparently had been having problems with shortness of breath but no chest pain. He also has been having more problems with his nonhealing wounds. You do remember that within the last year he had surgery to the above and required preoperative assessment. At that time an echocardiogram was performed which demonstrated an ejection fraction of 50%, dilated right ventricle, biatrial enlargement, 3+ mitral regurgitation and pulmonary to systolic pressure of close to 70 mmHg. He has also been having relatively low blood pressures has been confused and somewhat agitated. He was brought into the hospital for evaluation and optimization of his care. He denies any dizziness or gayatri syncopal episodes. [] Past Medical History Allergies/Adverse Reactions: Allergies No Known Allergies Allergy (Verified 08/05/18 13:36) Home Medications: Ambulatory Orders Medication Instructions Recorded Aspirin [Adult Aspirin] 81 mg PO DAILY 06/07/18 Atenolol 50 mg PO BID 06/07/18 Cholecalciferol (VIT D3) [Vitamin 1,000 unit PO DAILY 06/07/18 D3] Acetaminophen [Tylenol Tablet] 650 mg PO Q6H PRN PRN tablet 06/14/18 Ascorbic Acid [Vitamin C] 500 mg PO BIDCM tablet 06/14/18 Tamsulosin HCl [Flomax] 0.4 mg PO DAILY@1730 capsule 06/14/18 Zinc Sulfate (50mg elemental) 220 mg PO DAILY capsule 06/14/18 [Zinc Sulfate] Argin/Glut/Cahmb/Collag/Mv-Min 1 each PO BID 08/05/18 [Juan Packet] Atorvastatin Calcium [Lipitor] 10 mg PO QHS 08/05/18 Diltiazem CD [Cardizem CD] 120 mg PO DAILY 08/05/18 Famotidine 20 mg PO DAILY 08/05/18 Furosemide [Lasix] 20 mg PO DAILY 08/05/18 Insulin Lispro [Humalog] See Protocol SQ 4X/DAY 08/05/18 Multivitamins,Ther W-Minerals 1 tablet PO DAILY 08/05/18 [Multivitamin With Minerals] Paroxetine HCl [Paxil] 40 mg PO DAILY 08/05/18 Warfarin [Coumadin (PBKC)] 6 mg PO DAILY 08/05/18 glipiZIDE [Glucotrol] 10 mg PO DAILY@0730 08/05/18 Past Medical History (Chronic Problems): Chronic Problems 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 Anticipate Stage III or IV if excision done. Right ischial pressure sore, stage 2 (Chronic) at least a Stage II. Anticipate Stage III or IV if excision done. Pressure ulcer of sacral region, stage 2 (Chronic) at least a Stage II. Anticipate Stage III or IV if excision done. 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 Psychiatric History: Depression - *Family History Paternal History Items: Heart Disease - His father had atrial fibrillation and an AICD/pacemaker Maternal History Items: Diabetes - His mother had severe diabetes mellitus and had amputations of her lower extremities. Lives: Residential Smoking Status: Former smoker Tobacco Use: Cigarettes Alcohol: Sober Drugs: None Review of Systems - Review of Systems General: Denies: Fever, Night Sweats, Fatigue Cardiovascular: Reports: Shortness of Breath, Shortness of Breath at Rest. Denies: Chest Discomfort, Orthopnea, PND, Peripheral Edema, Palpitations, Lightheadedness, Dizziness, Near Syncope, Syncope Respiratory: Denies: Cough, Sputum Production, Hemoptysis Gastrointestinal: Denies: Hematemesis, Hematochezia, Melena Genitourinary: Denies: Dysuria, Hematuria Skin: Denies: Rash Subjectve: Middle-aged man in no apparent distress Objective: Vital Signs Temp Pulse Resp BP Pulse Ox 97.4 F L 67 15 90/78 95 08/05/18 13:17 08/05/18 16:07 08/05/18 16:07 08/05/18 16:07 08/05/18 16:07 Weight: 249 lb 5.485 oz Body Mass Index (BMI) 32.0 General: Awake, Alert, Oriented x 3 HEENT: PERRL, EOMI, Sclera Non Icteric Neck: Supple, Good ROM, No Lymph Node Enlargement Lungs: Clear to auscultation, Diminished Timothy Bases Cardiovascular: Regular Rhythm, Normal S1, Normal S2, No Rubs, No Gallops Murmur Murmur: Grade 2/6, Holosystolic, [place] Vascular: No Carotid Bruits, Normal Femoral Pulses, Normal Radial Pulses, Normal Dorsalis Pedal Pulse, Normal Posterior Tibial Pulses Abdomen: Bowel Sounds Present, Soft, Non Tender, No HSM, No Organomegaly Extremities: No Cyanosis, No Clubbing, No edema, - - Bilateral lower extremity wounds Neurological: No Focal Motor or Sensory Deficit 08/05/18 16:11: Urine Color Yellow, Urine Clarity Clear, Urine pH 6.5, Ur Specific [place] 1.010, Urine Protein Negative, Urine Glucose (UA) Normal, Urine Ketones Negative, Urine Occult Blood Negative, Urine Nitrite Negative, Urine Bilirubin Negative, Urine Urobilinogen Normal, Ur Leukocyte Esterase 100 H, Urine RBC 0 SEEN, Urine WBC 0-5 SEEN Rhythm: EKG: Normal sinus rhythm with no acute changes ECHO: Stress Test: Cardiac Cath: PCI: CT Surgery: Holter monitor: EPS: PPM: CXR: Chest CT Scan: Assessment/Plan 1. Shortness of breath-congestive heart failure chronic systolic He presents with shortness of breath and evidence of orthopnea. He does have minimal pedal edema. His previous echocardiogram however demonstrated left ventricular systolic dysfunction with significant valvular abnormalities. I suspect this is the etiology of his heart failure which has been worsened by his worsening renal function. My recommendation at this time will be to continue him on intravenous Lasix Continue beta-dilia with atenolol twice a day Discontinue his Cardizem Further recommendations will be made based on his response to the above. 2. Valvular heart disease He does have evidence of valvular heart disease with moderately severe mitral regurgitation and elevated pulmonary to systolic pressure. He also has biatrial enlargement. At this time recommendation will be to treat this with aggressive diuretic therapy. In light of his worsening renal function I would not suggest the addition of an MARIO inhibitor. 3. Hypertension His blood pressure appears to be under fair control on the current medical therapy. Indeed it is actually low and I would recommend that we discontinue his diltiazem at this time and continue him on the beta-dilia. I would also recommend reducing the dose of his atenolol. Hopefully this would improve his perfusion pressure. Thank you for allowing me to participate in the care of your patient. Please don't hesitate to call if any issues arise
--- NOTE | 2018-08-05 18:06 | CON.PCM_ITS ---
Reason for Consult Date of Consultation: 08/05/18 Reason for Consultation: Shortness of breath. History of Present Illness: The patient is a 63 year old M with a history of hypertension, diabetes mellitus , hyperlipidemia, previous cerebrovascular accident peripheral vascular disease and paroxysmal atrial fibrillation. He also has a history of nonhealing wounds and was recently in a extended care facility. He apparently had been having problems with shortness of breath but no chest pain. He also has been having more problems with his nonhealing wounds. You do remember that within the last year he had surgery to the above and required preoperative assessment. At that time an echocardiogram was performed which demonstrated an ejection fraction of 50%, dilated right ventricle, biatrial enlargement, 3+ mitral regurgitation and pulmonary to systolic pressure of close to 70 mmHg. He has also been having relatively low blood pressures has been confused and somewhat agitated. He was brought into the hospital for evaluation and optimization of his care. He denies any dizziness or gayatri syncopal episodes. [] Past Medical History Allergies/Adverse Reactions: Allergies No Known Allergies Allergy (Verified 08/05/18 13:36) Home Medications: Ambulatory Orders Medication Instructions Recorded Aspirin [Adult Aspirin] 81 mg PO DAILY 06/07/18 Atenolol 50 mg PO BID 06/07/18 Cholecalciferol (VIT D3) [Vitamin 1,000 unit PO DAILY 06/07/18 D3] Acetaminophen [Tylenol Tablet] 650 mg PO Q6H PRN PRN tablet 06/14/18 Ascorbic Acid [Vitamin C] 500 mg PO BIDCM tablet 06/14/18 Tamsulosin HCl [Flomax] 0.4 mg PO DAILY@1730 capsule 06/14/18 Zinc Sulfate (50mg elemental) 220 mg PO DAILY capsule 06/14/18 [Zinc Sulfate] Argin/Glut/Cahmb/Collag/Mv-Min 1 each PO BID 08/05/18 [Juan Packet] Atorvastatin Calcium [Lipitor] 10 mg PO QHS 08/05/18 Diltiazem CD [Cardizem CD] 120 mg PO DAILY 08/05/18 Famotidine 20 mg PO DAILY 08/05/18 Furosemide [Lasix] 20 mg PO DAILY 08/05/18 Insulin Lispro [Humalog] See Protocol SQ 4X/DAY 08/05/18 Multivitamins,Ther W-Minerals 1 tablet PO DAILY 08/05/18 [Multivitamin With Minerals] Paroxetine HCl [Paxil] 40 mg PO DAILY 08/05/18 Warfarin [Coumadin (PBKC)] 6 mg PO DAILY 08/05/18 glipiZIDE [Glucotrol] 10 mg PO DAILY@0730 08/05/18 Past Medical History (Chronic Problems): Chronic Problems 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 Anticipate Stage III or IV if excision done. Right ischial pressure sore, stage 2 (Chronic) at least a Stage II. Anticipate Stage III or IV if excision done. Pressure ulcer of sacral region, stage 2 (Chronic) at least a Stage II. Anticipate Stage III or IV if excision done. 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 Psychiatric History: Depression - *Family History Paternal History Items: Heart Disease - His father had atrial fibrillation and an AICD/ pacemaker Maternal History Items: Diabetes - His mother had severe diabetes mellitus and had amputations of her lower extremities. Lives: Group Home Smoking Status: Former smoker Tobacco Use: Cigarettes Alcohol: Sober Drugs: None Review of Systems - Review of Systems General: Denies: Fever, Night Sweats, Fatigue Cardiovascular: Reports: Shortness of Breath, Shortness of Breath at Rest. Denies: Chest Discomfort, Orthopnea, PND, Peripheral Edema, Palpitations, Lightheadedness, Dizziness, Near Syncope, Syncope Respiratory: Denies: Cough, Sputum Production, Hemoptysis Gastrointestinal: Denies: Hematemesis, Hematochezia, Melena Genitourinary: Denies: Dysuria, Hematuria Skin: Denies: Rash Subjectve: Middle-aged man in no apparent distress Objective: Vital Signs Temp Pulse Resp BP Pulse Ox 97.4 F L 67 15 90/78 95 08/05/18 13:17 08/05/18 16:07 08/05/18 16:07 08/05/18 16:07 08/05/18 16:07 Weight: 249 lb 5.485 oz Body Mass Index (BMI) 32.0 General: Awake, Alert, Oriented x 3 HEENT: PERRL, EOMI, Sclera Non Icteric Neck: Supple, Good ROM, No Lymph Node Enlargement Lungs: Clear to auscultation, Diminished Timothy Bases Cardiovascular: Regular Rhythm, Normal S1, Normal S2, No Rubs, No Gallops Murmur Murmur: Grade 2/6, Holosystolic, [place] Vascular: No Carotid Bruits, Normal Femoral Pulses, Normal Radial Pulses, Normal Dorsalis Pedal Pulse, Normal Posterior Tibial Pulses Abdomen: Bowel Sounds Present, Soft, Non Tender, No HSM, No Organomegaly Extremities: No Cyanosis, No Clubbing, No edema, - - Bilateral lower extremity wounds Neurological: No Focal Motor or Sensory Deficit 08/05/18 16:11: Urine Color Yellow, Urine Clarity Clear, Urine pH 6.5, Ur Specific [place] 1.010, Urine Protein Negative, Urine Glucose (UA) Normal, Urine Ketones Negative, Urine Occult Blood Negative, Urine Nitrite Negative, Urine Bilirubin Negative, Urine Urobilinogen Normal, Ur Leukocyte Esterase 100 H , Urine RBC 0 SEEN, Urine WBC 0-5 SEEN Rhythm: EKG: Normal sinus rhythm with no acute changes ECHO: Stress Test: Cardiac Cath: PCI: CT Surgery: Holter monitor: EPS: PPM: CXR: Chest CT Scan: Assessment/Plan 1. Shortness of breath-congestive heart failure chronic systolic * He presents with shortness of breath and evidence of orthopnea. He does have minimal pedal edema. His previous echocardiogram however demonstrated left ventricular systolic dysfunction with significant valvular abnormalities. I suspect this is the etiology of his heart failure which has been worsened by his worsening renal function. * My recommendation at this time will be to continue him on intravenous Lasix * Continue beta-dilia with atenolol twice a day * Discontinue his Cardizem * Further recommendations will be made based on his response to the above. * 2. Valvular heart disease * He does have evidence of valvular heart disease with moderately severe mitral regurgitation and elevated pulmonary to systolic pressure. He also has biatrial enlargement. At this time recommendation will be to treat this with aggressive diuretic therapy. * In light of his worsening renal function I would not suggest the addition of an MARIO inhibitor. * 3. Hypertension * His blood pressure appears to be under fair control on the current medical therapy. Indeed it is actually low and I would recommend that we discontinue his diltiazem at this time and continue him on the beta-dilia. * I would also recommend reducing the dose of his atenolol. Hopefully this would improve his perfusion pressure. * * Thank you for allowing me to participate in the care of your patient. Please don't hesitate to call if any issues arise
[2018-08-05 18:37] LABS: Magnesium 3.3 mg/dL (1.6-2.6)
[2018-08-05] MEDS: Ascorbic Acid 500 MG Tablet PO (18:53)
[2018-08-05] MEDS: Tamsulosin HCl 0.4 MG Capsule PO (18:54)
[2018-08-05] MEDS: Furosemide 40 MG/4 ML Vial IV (19:00)
[2018-08-05] MEDS: 0.9% NaCl Peripheral Flush Adult/Peds IV ×3 (20:09→23:35)
[2018-08-05 20:21] LABS: Blood Gas Specimen Type VEN; O2 Delivery Device Nasal Can; SITE OTHER; Time Given 1955; VBG BASE EXCESS 4 mmol/L (-1.0-3.5); VBG Bicarbonate 29 mmol/L (22-26); VBG Oxygen Content 30 mmol/L (23-33); VBG PO2 35 mmHg (25-40); VBG SO2 67 % (50-70); VBG pCO2 44.5 mmHg (41-51); VBG pH 7.41 (7.32-7.42)
[2018-08-05 21:33] LABS: Ferritin 81 ng/mL (26-388); Iron 20 ug/dL (65-175); Iron Binding Capacity,Total 382 ug/dL (250-450); PERCENT IRON SATURATION 5.2 % (15.0-55.0); T4 Free Direct 0.82 ng/dL (0.76-1.46)
[2018-08-05 22:20] LABS: Bedside Glucose 198 mg/dL (70-110)
[2018-08-05] MEDS: Glucerna Shake 120 ML LIQUID PO (22:25)
[2018-08-05] MEDS: Atorvastatin Calcium 10 MG Tablet PO (22:26)
[2018-08-05] MEDS: Insulin Lispro 100 UNIT/ML INSULN.PEN SC (22:26)
[2018-08-06] VITALS (12 sets, daily range): BP systolic 97–105; BP diastolic 59–69; PULSE 65–80; RESP 18–20; TEMP 35.2–36.9; O2SAT 95–100
--- NOTE | 2018-08-06 05:55 | EKG12_ITS ---
Test Reason : AM EKG Blood Pressure : / mmHG Vent. Rate : 068 BPM Atrial Rate : 040 BPM P-R Int : 000 ms QRS Dur : 104 ms QT Int : 444 ms P-R-T Axes : 000 -06 026 degrees QTc Int : 472 ms Atrial fibrillation Low voltage QRS Nonspecific T wave abnormality Prolonged QT Abnormal ECG When compared with ECG of 09-JUN-2018 05:31, Vent. rate has decreased BY 36 BPM Nonspecific T wave abnormality, worse in Lateral leads Confirmed by VITA RAMIREZ, GERRY ([id number]), editor & co founder ROSSANA ROB ([id number] on 08/10/2018 3:29:22 PM Referred By: DR FISH Confirmed By:GERRY GORMAN MD
[2018-08-06] MEDS: 0.9% NaCl Peripheral Flush Adult/Peds IV (06:16)
[2018-08-06 06:28] LABS: Absolute Lymphocyte Count 0.37 X10^3/ul (0.83-4.51); Absolute Neutrophil Count 3.7 X10^3/uL (2.0-7.7); Eosinophil# 0.05 X10^3/uL; Eosinophils% 1.1 % (0-5); Hemoglobin 9.4 g/dl (13.0-16.5); Lymphocyte # 0.37 X10^3/ul (4.0); Lymphocyte % 8.2 % (19-41); Mean Corp Hgb Conc 29.4 g/gl (32-36); Mean Corpuscular Hgb 27.6 pg (27.0-32.0); Mean Corpuscular Volume 94.1 fL (80-94); Monocyte# 0.39 X10^3/uL; Monocyte% 8.6 % (0-10); Neutrophil % 81.9 % (47-70); Platelet Count 101 K/mm3 (150-450); RBC Distribution Width CV 17.6 % (11.6-14.6); RBC Distribution Width SD 58.1 fl (35.1-43.9); White Blood Count 4.5 K/mm3 (4.4-11.0)
[2018-08-06 06:29] LABS: Differential Indicated SCAN CRITERIA MET; POSITIVE COUNT NO; POSITIVE DIFFERENTIAL YES; POSITIVE MORPHOLOGY NO
[2018-08-06 06:36] LABS: Prothrombin Time (Protime)PT. 61.3 SECONDS (11.7-14.9)
--- NOTE | 2018-08-06 06:43 | NURSING ---
Critical INR 7.0 result given to primary RN
[2018-08-06 06:48] LABS: ALB/GLOB Ratio 0.8 RATIO (0.9-2.4); AST(SGOT) 20 U/L (15-37); Alanine Aminotransfer ALT/SGPT 19 U/L (16-61); Albumin, Serum 2.4 g/dL (3.2-5.0); Alkaline Phosphatase 131 U/L (45-117); Anion Gap 11 (5-15); BUN 116 mg/dL (7-18); BUN/Creat Ratio 45.5 RATIO (10-20); Calcium,Total 8.5 mg/dL (8.5-10.1); Chloride 100 mmol/L (98-107); Cholesterol 74 mg/dL (200); Creatinine, Serum 2.55 mg/dL (0.70-1.30); EST Glomerular Filtration Rate 27 mL/min (>60); Est Glom Filt Rate - Afr Amer 33 mL/min (>60); Estimated Creatinine Clearance 34.03 ml/min; Globulin 3.1 g/dL (2.2-4.2); Glucose 152 mg/dL (74-106); High Density Lipoprotein 22 mg/dL; Potassium 4.1 mmol/L (3.5-5.1); Protein, Total 5.5 g/dL (6.4-8.2); Sodium Level 141 mmol/L (136-145); Triglycerides 55 mg/dL; Very Low Density Lipoprotein 11 mg/dL (5-40)
[2018-08-06 07:46] LABS: Bedside Glucose 141 mg/dL (70-110)
[2018-08-06] MEDS: Ascorbic Acid 500 MG Tablet PO ×2 (09:11→16:44)
[2018-08-06] MEDS: Multivitamins,Ther W-Minerals Tablet 1 TABLET PO (09:11)
[2018-08-06] MEDS: Atenolol 50 MG Tablet PO (09:12)
[2018-08-06] MEDS: Aspirin E.C. 81 MG Tablet PO (09:12)
[2018-08-06] MEDS: Furosemide 40 MG/4 ML Vial IV (09:13)
[2018-08-06] MEDS: Phytonadione (Vit K) 10 MG/ML Ampul 5 MG PO ×2 (09:14→19:02)
[2018-08-06] MEDS: Insulin Lispro 100 UNIT/ML INSULN.PEN SC ×3 (11:08→22:43)
[2018-08-06 11:15] LABS: Bedside Glucose 172 mg/dL (70-110)
--- NOTE | 2018-08-06 11:42 | PN.CARD_ITS ---
Subjectve: Patient seen and evaluated. Appears to be doing better this morning. Objective: Vital Signs Temp Pulse Resp BP Pulse Ox 97.9 F 70 18 102/59 L 95 08/06/18 11:00 08/06/18 11:25 08/06/18 11:00 08/06/18 11:00 08/06/18 11:00 Oxygen Flow Rate (L/min) 5 Oxygen Delivery Method Nasal Cannula Weight: 249 lb 5.485 oz Body Mass Index (BMI) 32.0 Intake and Output for Last 24 Hours 08/04/18 08/05/18 08/06/18 23:59 23:59 23:59 Intake Total 200 / 200 840 / 840 Output Total 350 / 350 1675 / 1675 Balance -150 / -150 -835 / -835 General: Awake, Alert, Oriented x 3 HEENT: PERRL, EOMI, Sclera Non Icteric Neck: Supple, Good ROM, No Lymph Node Enlargement Lungs: Diminished Timothy Bases Cardiovascular: Regular Rhythm, Normal S1, Normal S2, No Murmurs, No Rubs, No Gallops Vascular: No Carotid Bruits, Normal Femoral Pulses, Normal Radial Pulses, Normal Dorsalis Pedal Pulse, Normal Posterior Tibial Pulses Abdomen: Bowel Sounds Present, Soft, Non Tender, No HSM, No Organomegaly Extremities: No Cyanosis, No Clubbing, No edema Neurological: No Focal Motor or Sensory Deficit 08/05/18 16:11: Urine Color Yellow, Urine Clarity Clear, Urine pH 6.5, Ur Specific [place] 1.010, Urine Protein Negative, Urine Glucose (UA) Normal, Urine Ketones Negative, Urine Occult Blood Negative, Urine Nitrite Negative, Urine Bilirubin Negative, Urine Urobilinogen Normal, Ur Leukocyte Esterase 100 H , Urine RBC 0 SEEN, Urine WBC 0-5 SEEN 08/05/18 18:15: Hemoglobin A1c 6.0 08/05/18 18:15: Troponin I < 0.015 08/05/18 20:05: Troponin I < 0.015 08/05/18 20:05: Iron 20 L, TIBC 382, Iron Saturation 5.2 L, Ferritin 81 08/05/18 20:17: VBG pH 7.41, VBG pO2 35, VBG O2 Sat (Calc) 67, VBG O2 Content 30 , VBG Base Excess 4 H 08/05/18 23:30: Troponin I < 0.015 08/06/18 06:15: WBC 4.5, RBC 3.40 L, Hgb 9.4 L, Hct 32.0 L, MCV 94.1 H, MCH 27.6 , MCHC 29.4 L, RDW 17.6 H, RDW Differential 58.1 H, Plt Count 101 L, MPV 13.0 H , Immature Gran % (Auto) 0.200, Neut % (Auto) 81.9 H, Lymph % (Auto) 8.2 L, [place] % (Auto) 8.6, Eos % (Auto) 1.1, Baso % (Auto) 0.0, Absolute Neuts (auto) 3.7, Total Counted Not Reportable 08/06/18 06:15: Sodium 141, Potassium 4.1, Chloride 100, Carbon Dioxide 30.0, Anion Gap 11, BUN 116 H*, Creatinine 2.55 H, Est GFR (MDRD) Af Amer 33 L, Est GFR (MDRD) Non-Af 27 L, BUN/Creatinine Ratio 45.5 H, Glucose 152 H, Calcium 8.5 , Total Bilirubin 1.30 H, Triglycerides 55, Cholesterol 74, LDL Cholesterol 41, VLDL Cholesterol 11, HDL Cholesterol 22 L 08/06/18 06:15: PT 61.3 H, INR 7.0 H* Rhythm: EKG: ECHO: Stress Test: Cardiac Cath: PCI: CT Surgery: Holter monitor: EPS: PPM: CXR: Chest CT Scan: Medical Necessity - Tobacco Use Smoking Status: Former smoker Tobacco Use: Cigarettes Assessment/Plan 1. Shortness of breath-congestive heart failure chronic systolic * He presents with shortness of breath and evidence of orthopnea. He does have minimal pedal edema. His previous echocardiogram however demonstrated left ventricular systolic dysfunction with significant valvular abnormalities. I suspect this is the etiology of his heart failure which has been worsened by his worsening renal function. * My recommendation at this time will be to continue him on intravenous Lasix * Continue beta-dilia with atenolol twice a day * Discontinue his Cardizem * Further recommendations will be made based on his response to the above. * 2. Valvular heart disease * He does have evidence of valvular heart disease with moderately severe mitral regurgitation and elevated pulmonary to systolic pressure. He also has biatrial enlargement. At this time recommendation will be to treat this with aggressive diuretic therapy. * In light of his worsening renal function I would not suggest the addition of an MARIO inhibitor. * 3. Hypertension * His blood pressure appears to be under fair control on the current medical therapy. Indeed it is actually low and I would recommend that we discontinue his diltiazem at this time and continue him on the beta-dilia. * I would also recommend reducing the dose of his atenolol. Hopefully this would improve his perfusion pressure. * No particular changes will be made at this time we will reevaluate him in a.m. Overall he appears to be doing better. * Thank you for allowing me to participate in the care of your patient. Please don't hesitate to call if any issues arise
--- NOTE | 2018-08-06 12:05 | RAD_ITS ---
STUDY: X-RAY - RIGHT ANKLE REASON FOR EXAM: Male, 63 years old. Leg ulcers TECHNIQUE: 3 view(s) of the ankle. COMPARISON: None. FINDINGS: Normal visualized distal tibia and fibula. Normal medial and lateral malleoli. Normal tibiotalar articulation and ankle mortise. There is a plantar calcaneal spur. The visualized subtalar, talonavicular, calcaneocuboid and tarsal articulations are normal. There are multiple amputations partially visualized within the metatarsals of the second and third rays. Vascular calcifications are seen. RAD/Ankle min 3 Views IMPRESSION: No acute bony abnormality. Electronically Signed: Gaston Crandall DO at 15:52 EDT Tel , Service support ,
--- NOTE | 2018-08-06 12:05 | RAD_ITS ---
STUDY: X-RAY - RIGHT FOOT CLINICAL: Male, 63 years old. Ulcers right foot TECHNIQUE: 3 view(s) of the foot. COMPARISON: None. FINDINGS: Normal talus, calcaneus, and tarsal bones. Normal visualized subtalar, talonavicular, calcaneocuboid, tarsal and tarsometatarsal articulations. Amputated second and third mid metatarsals. There is degenerative arthrosis of the metatarsophalangeal joint of the hallux . Normal tibial and fibular sesamoid bones. Normal interphalangeal joint of the great toe. Normal phalanges of the great toe. Normal second through fifth metatarsophalangeal joints. Normal interphalangeal joints and phalanges of the lesser toes. The soft tissue structures are unremarkable. RAD/Foot min 3 Views IMPRESSION: Amputated second and third metatarsals. MRI or bone scan would be more sensitive if clinically warranted. Electronically Signed: Thai Manjarrez MD at 18:47 EDT , Service support ,
--- NOTE | 2018-08-06 12:05 | RAD_ITS ---
STUDY: X-RAY - LEFT TIBIA AND FIBULA REASON FOR EXAM: Male, 63 years old. Ulcer left lower leg TECHNIQUE: 2 view(s) of the tibia and fibula were obtained. COMPARISON: None. FINDINGS: Normal visualized tibia. Normal visualized fibula. The soft tissue structures are unremarkable. RAD/Tibia & Fibula 2 Views IMPRESSION: Normal x-ray examination of the tibia and fibula. Electronically Signed: Thai Manjarrez MD at 18:51 EDT , Service support ,
--- NOTE | 2018-08-06 12:13 | PCM.PROGNOTE ---
Subjective: Patient seen exam. No acute events overnight. Denies shortness of breath. Denies current complaints. - Physical Exam General: Alert, Oriented x3, Cooperative, No apparent distress HEENT: Atraumatic, PERRLA, EOMI, Normocephalic Neck: Supple, No JVD, Negative Carotid Bruits Lungs: Clear to auscultation, Diminished Cardiovascular: - - Atrial fibrillation, rate controlled. Abdomen: Bowel Sounds Present, Soft, Non Tender, Non-Distended, Obese Extremities: No clubbing, No cyanosis, Edema - Abdominal, bilateral upper thigh +2 Skin: - - Extensive bilateral lower extremity wounds, right greater than left. Bilateral upper extremity scabbing secondary to picking. Musculoskeletal: No Tenderness to Palpation of Joints or Extremities Neurological: Cranial nerves II-XII grossly intact, Neuro grossly intact Psych/Mental Status: Normal Affect, Appropriate Vital Signs Temp Pulse Resp BP Pulse Ox 97.9 F 70 18 102/59 L 95 08/06/18 11:00 08/06/18 11:25 08/06/18 11:00 08/06/18 11:00 08/06/18 11:00 Oxygen Flow Rate (L/min) 5 Oxygen Delivery Method Nasal Cannula Weight: 249 lb 5.485 oz Body Mass Index (BMI) 32.0 Intake and Output for Last 24 Hours 08/04/18 08/05/18 08/06/18 23:59 23:59 23:59 Intake Total 200 / 200 840 / 840 Output Total 350 / 350 1675 / 1675 Balance -150 / -150 -835 / -835 Laboratory Tests Past 24 Hrs 08/05/18 08/05/18 08/05/18 16:11 17:03 18:15 WBC RBC Hgb Hct MCV MCH MCHC RDW RDW Differential Plt Count MPV Immature Gran % (Auto) Neut % (Auto) Lymph % (Auto) [place] % (Auto) Eos % (Auto) Baso % (Auto) Absolute Neuts (auto) Absolute Lymphs (auto) Total Counted PT INR Specimen Type Sample Site VBG pH VBG pO2 VBG O2 Sat (Calc) VBG O2 Content VBG Base Excess POC Mix VBG pCO2 Pt Tmp O2 Delivery Device Liter Flow Blood Gas Notified Whom Blood Gas Notified Time Sodium Potassium Chloride Carbon Dioxide Anion Gap BUN Creatinine Estim Creat Clear Calc Est GFR (MDRD) Af Amer Est GFR (MDRD) Non-Af BUN/Creatinine Ratio Glucose Hemoglobin A1c 6.0 Calcium Iron TIBC Iron Saturation Ferritin Total Bilirubin AST ALT Alkaline Phosphatase Ammonia 13.0 Troponin I Total Protein Albumin Globulin Albumin/Globulin Ratio Triglycerides Cholesterol LDL Cholesterol VLDL Cholesterol HDL Cholesterol Vitamin B12 Folate Free T4 Urine Color Yellow Urine Clarity Clear Urine pH 6.5 Ur Specific [place] 1.010 Urine Protein Negative Urine Glucose (UA) Normal Urine Ketones Negative Urine Occult Blood Negative Urine Nitrite Negative Urine Bilirubin Negative Urine Urobilinogen Normal Ur Leukocyte Esterase 100 H Urine RBC 0 SEEN Urine WBC 0-5 SEEN Ur Squamous Epith Cells 0 SEEN Urine Bacteria 0 SEEN Urine Mucus 0 SEEN 08/05/18 08/05/18 08/05/18 18:15 20:05 20:05 WBC RBC Hgb Hct MCV MCH MCHC RDW RDW Differential Plt Count MPV Immature Gran % (Auto) Neut % (Auto) Lymph % (Auto) [place] % (Auto) Eos % (Auto) Baso % (Auto) Absolute Neuts (auto) Absolute Lymphs (auto) Total Counted PT INR Specimen Type Sample Site VBG pH VBG pO2 VBG O2 Sat (Calc) VBG O2 Content VBG Base Excess POC Mix VBG pCO2 Pt Tmp O2 Delivery Device Liter Flow Blood Gas Notified Whom Blood Gas Notified Time Sodium Potassium Chloride Carbon Dioxide Anion Gap BUN Creatinine Estim Creat Clear Calc Est GFR (MDRD) Af Amer Est GFR (MDRD) Non-Af BUN/Creatinine Ratio Glucose Hemoglobin A1c Calcium Iron 20 L TIBC 382 Iron Saturation 5.2 L Ferritin 81 Total Bilirubin AST ALT Alkaline Phosphatase Ammonia Troponin I < 0.015 < 0.015 Total Protein Albumin Globulin Albumin/Globulin Ratio Triglycerides Cholesterol LDL Cholesterol VLDL Cholesterol HDL Cholesterol Vitamin B12 Folate 29.00 Free T4 0.82 Urine Color Urine Clarity Urine pH Ur Specific [place] Urine Protein Urine Glucose (UA) Urine Ketones Urine Occult Blood Urine Nitrite Urine Bilirubin Urine Urobilinogen Ur Leukocyte Esterase Urine RBC Urine WBC Ur Squamous Epith Cells Urine Bacteria Urine Mucus 08/05/18 08/05/18 08/05/18 20:05 20:17 23:30 WBC RBC Hgb Hct MCV MCH MCHC RDW RDW Differential Plt Count MPV Immature Gran % (Auto) Neut % (Auto) Lymph % (Auto) [place] % (Auto) Eos % (Auto) Baso % (Auto) Absolute Neuts (auto) Absolute Lymphs (auto) Total Counted PT INR Specimen Type RSOIO Sample Site OTHER VBG pH 7.41 VBG pO2 35 VBG O2 Sat (Calc) 67 VBG O2 Content 30 VBG Base Excess 4 H POC Mix VBG pCO2 Pt Tmp 44.5 O2 Delivery Device Nasal Can Liter Flow 3.0 Blood Gas Notified Whom [facility] Blood Gas Notified Time 1954 Sodium Potassium Chloride Carbon Dioxide Anion Gap BUN Creatinine Estim Creat Clear Calc Est GFR (MDRD) Af Amer Est GFR (MDRD) Non-Af BUN/Creatinine Ratio Glucose Hemoglobin A1c Calcium Iron TIBC Iron Saturation Ferritin Total Bilirubin AST ALT Alkaline Phosphatase Ammonia Troponin I < 0.015 Total Protein Albumin Globulin Albumin/Globulin Ratio Triglycerides Cholesterol LDL Cholesterol VLDL Cholesterol HDL Cholesterol Vitamin B12 Pending Folate Free T4 Urine Color Urine Clarity Urine pH Ur Specific [place] Urine Protein Urine Glucose (UA) Urine Ketones Urine Occult Blood Urine Nitrite Urine Bilirubin Urine Urobilinogen Ur Leukocyte Esterase Urine RBC Urine WBC Ur Squamous Epith Cells Urine Bacteria Urine Mucus 08/06/18 08/06/18 08/06/18 06:15 06:15 06:15 WBC 4.5 RBC 3.40 L Hgb 9.4 L Hct 32.0 L MCV 94.1 H MCH 27.6 MCHC 29.4 L RDW 17.6 H RDW Differential 58.1 H Plt Count 101 L MPV 13.0 H Immature Gran % (Auto) 0.200 Neut % (Auto) 81.9 H Lymph % (Auto) 8.2 L [place] % (Auto) 8.6 Eos % (Auto) 1.1 Baso % (Auto) 0.0 Absolute Neuts (auto) 3.7 Absolute Lymphs (auto) 0.37 L Total Counted Not Reportable PT 61.3 H INR 7.0 H* Specimen Type Sample Site VBG pH VBG pO2 VBG O2 Sat (Calc) VBG O2 Content VBG Base Excess POC Mix VBG pCO2 Pt Tmp O2 Delivery Device Liter Flow Blood Gas Notified Whom Blood Gas Notified Time Sodium 141 Potassium 4.1 Chloride 100 Carbon Dioxide 30.0 Anion Gap 11 BUN 116 H* Creatinine 2.55 H Estim Creat Clear Calc 34.03 Est GFR (MDRD) Af Amer 33 L Est GFR (MDRD) Non-Af 27 L BUN/Creatinine Ratio 45.5 H Glucose 152 H Hemoglobin A1c Calcium 8.5 Iron TIBC Iron Saturation Ferritin Total Bilirubin 1.30 H AST 20 ALT 19 Alkaline Phosphatase 131 H Ammonia Troponin I Total Protein 5.5 L Albumin 2.4 L Globulin 3.1 Albumin/Globulin Ratio 0.8 L Triglycerides 55 Cholesterol 74 LDL Cholesterol 41 VLDL Cholesterol 11 HDL Cholesterol 22 L Vitamin B12 Folate Free T4 Urine Color Urine Clarity Urine pH Ur Specific [place] Urine Protein Urine Glucose (UA) Urine Ketones Urine Occult Blood Urine Nitrite Urine Bilirubin Urine Urobilinogen Ur Leukocyte Esterase Urine RBC Urine WBC Ur Squamous Epith Cells Urine Bacteria Urine Mucus POC Glucose 08/06/18 08/06/18 08/05/18 11:03 07:35 22:15 POC Glucose 172 H 141 H 198 H Medical Necessity - Tobacco Use Smoking Status: Former smoker Tobacco Use: Cigarettes Assessment/Plan All Active Problems Vasculitis (Acute) Abscess of right leg (Acute) Abscess of right foot (Acute) Gangrene (Acute) Severe sepsis (Acute) 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 Acute encephalopathy-unclear etiology. Urine and blood cultures pending. Blood gas and ammonia within normal limits. 2. Acute kidney injury on chronic kidney disease stage III-suspect secondary to urinary retention. Paonte placed in ER. BUN/creatinine mildly improved. Trend BMP. 3. Acute on chronic systolic CHF-chest x-ray on admission shows bilateral pleural effusions. Aponte placed in ER for strict I's and O's. Daily weight. Echocardiogram May 2018 showed an EF of 50%, moderately severe mitral valve insufficiency, moderate tricuspid valve insufficiency, RVSP estimated to be 67 mmHg, severe pulmonary hypertension. Cardiology consulted. continue Lasix drip. Continue beta-dilia. Cardizem discontinued. 4. Paroxysmal atrial fibrillation with supratherapeutic INR-Coumadin on hold. Vitamin K 5 mg ?1 given. Trend INR. 5. Chronic extensive wounds including bilateral lower extremities, right greater than left, ischial and sacral-frequent position changes. Wound nurse consult. Consult Dr. Gruber. Wounds present on admission. History of multiple organisms and wound cultures. History of osteomyelitis. 6. Hypertension-Cardizem on hold. Continue atenolol. Gentle IV fluids. Continue to monitor. 7. Hyperlipidemia-continue statin. 8. Type 2 diabetes mellitus-hold oral regimen. Accu-Cheks before meals at bedtime with sliding scale insulin. Check hemoglobin A1c. 9. Chronic iron deficiency anemia/anemia of chronic disease-stable, trend CBC. 10. History of CVA with mild left hemiparesis-continue aspirin, statin. PT/OT. 11. Debility/weakness-resides at SNF. Reported to use Swapnil lift. Unable to ambulate. PT/OT. 12. Depression-continue home paroxetine regimen. 13. Protein calorie malnutrition-nutrition consult. 14. Obesity-nutrition consult for dietary recommendations. DVT prophylaxis-Coumadin on hold secondary to supratherapeutic INR. This patient was seen by NADINE Chow under the supervision of Dr. Hunter.
[2018-08-06] MEDS: Furosemide 500 MG in Empty Viaflex 50 mL 1 EACH CONT INF (12:21)
--- NOTE | 2018-08-06 12:57 | RAD_ITS ---
STUDY: X-RAY - RIGHT TIBIA AND FIBULA REASON FOR EXAM: Male, 63 years old. Ulcers right lower leg TECHNIQUE: 2 view(s) of the tibia and fibula were obtained. COMPARISON: None. FINDINGS: Normal visualized tibia. Normal visualized fibula. The soft tissue structures are unremarkable. RAD/Tibia & Fibula 2 Views IMPRESSION: Normal x-ray examination of the tibia and fibula. Electronically Signed: Thai Manjarrez MD at 18:45 EDT , Service support ,
[2018-08-06 14:20] LABS: Probe Check PASS; Staph aureus DNA By PCR POSITIVE (Negative)
[2018-08-06 14:21] LABS: M R Staph aureus DNA By PCR POSITIVE (Negative)
--- NOTE | 2018-08-06 14:52 | CASEMGMT ---
SOCIAL WORK: Review of ER social work documentation. Plan is for return to [facility] pending medical stability and required pre-cert. Mary HITCHCOCK,MIKE
[2018-08-06 16:26] LABS: Bedside Glucose 280 mg/dL (70-110)
[2018-08-06] MEDS: Ferrous Sulfate 325 MG Tablet PO (16:44)
[2018-08-06] MEDS: Tamsulosin HCl 0.4 MG Capsule PO (16:44)
--- NOTE | 2018-08-06 16:47 | CON.PCM_ITS ---
Reason for Consult Date of Consultation: 08/06/18 History of Present Illness: The patient is a 63 year old male with history of multiple medical problems including diabetes, diabetic neuropathy, with significant ulcerations and previous infection bilateral lower extremity. His is present at bedside. They relate he developed ulcerations to his feet and legs due to swelling, states they were trying to care for wounds at home, but they worsened. Ultimately, he underwent multiple toe amputations on his right foot as well as fasciotomies for necrotizing fasciitis on the lower extremities which was fairly recently - he has residual wounds. He did complete course of IV Unasyn per Infectious Disease, stop date appears to have been 07/22/18. Patient has been following at the wound center, has been seeing Dr. Gruber. Wounds have been reported as healing well. Patient did recently have noninvasive lower extremity arterial studies which did not show any significant occlusion, but ABIs noted to be elevated consistent with arterial calcification. He last saw Dr. Gruber in the wound center on 08/03/18. He presented to the ER yesterday and was admitted with acute kidney failure, as well as supratherapeutic INR. Podiatry was consulted for ongoing wound care. 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 Anticipate Stage III or IV if excision done. Right ischial pressure sore, stage 2 (Chronic) at least a Stage II. Anticipate Stage III or IV if excision done. Pressure ulcer of sacral region, stage 2 (Chronic) at least a Stage II. Anticipate Stage III or IV if excision done. 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) Ulcer of right foot with necrosis of muscle (Chronic) Osteomyelitis (Chronic) Right foot infection (Chronic) Type 2 diabetes mellitus with diabetic polyneuropathy (Chronic) Localized edema (Chronic) Malnutrition (Chronic) Tobacco user (Chronic) HLD (hyperlipidemia) (Chronic) DM2 (diabetes mellitus, type 2) (Chronic) Depression (Chronic) Chronic low back pain (Chronic) Benign essential HTN (Chronic) Allergies No Known Allergies Allergy (Verified 08/05/18 13:36) Home Medications: Ambulatory Orders Medication Instructions Recorded Aspirin [Adult Aspirin] 81 mg PO DAILY 06/07/18 Atenolol 50 mg PO BID 06/07/18 Cholecalciferol (VIT D3) [Vitamin 1,000 unit PO DAILY 06/07/18 D3] Acetaminophen [Tylenol Tablet] 650 mg PO Q6H PRN PRN tablet 06/14/18 Ascorbic Acid [Vitamin C] 500 mg PO BIDCM tablet 06/14/18 Tamsulosin HCl [Flomax] 0.4 mg PO DAILY@1730 capsule 06/14/18 Zinc Sulfate (50mg elemental) 220 mg PO DAILY capsule 06/14/18 [Zinc Sulfate] Argin/Glut/Cahmb/Collag/Mv-Min 1 each PO BID 08/05/18 [Juan Packet] Atorvastatin Calcium [Lipitor] 10 mg PO QHS 08/05/18 Diltiazem CD [Cardizem CD] 120 mg PO DAILY 08/05/18 Famotidine 20 mg PO DAILY 08/05/18 Furosemide [Lasix] 20 mg PO DAILY 08/05/18 Insulin Lispro [Humalog] See Protocol SQ 4X/DAY 08/05/18 Multivitamins,Ther W-Minerals 1 tablet PO DAILY 08/05/18 [Multivitamin With Minerals] Paroxetine HCl [Paxil] 40 mg PO DAILY 08/05/18 Warfarin [Coumadin ([facility])] 6 mg PO DAILY 08/05/18 glipiZIDE [Glucotrol] 10 mg PO DAILY@0730 08/05/18 Surgical History: tonsillectomy, - - Multiple wound debridements bilateral lower extremities. Psychiatric History: Depression Lives: Group Home Smoking Status: Former smoker Tobacco Use: Cigarettes Alcohol: Sober Drugs: None - *Family History Paternal History Items: Heart Disease - His father had atrial fibrillation and an AICD/ pacemaker Maternal History Items: Diabetes - His mother had severe diabetes mellitus and had amputations of her lower extremities. Review of Systems Constitutional: Denies: Chills, Fever Gastrointestinal: Denies: Nausea, Vomiting Skin: Reports: Wounds Neurological: Reports: Numbness - bilateral peripheral neuropathy - Physical Exam General: Alert, Cooperative, Lethargic Extremities: No cyanosis, Capillary Refill Less than 3 Seconds, No Calf Tenderness, - - Right 3rd and 4th toes absent from previous amputation. Multiple ulcerations to the right and left legs down to the subcutaneous tissue and muscle layers, there is no exposed or probing to bone or joint, tissue is mixture of granular with some fibrotic tissue - overall appears much improved compared to what was like in May per review of records and discussing w/ Dr. Gruber along with patient and his . There is no visible abscess, no cellulitis, no fluctuance, no crepitus, no streaking to bilateral foot/ankle however the is order noted on right side. There is no evidence of acute ischemia to the lower extremity bilateral - reviewed recent DENISE studies. Musculoskeletal: No Tenderness to Palpation of Joints or Extremities - however patient does report to some pain to the leg ulcerations bilateral. Neurological: - - sensation significantly diminished bilateral foot consistent with diabetic neuropathy. Vital Signs Temp Pulse Resp BP Pulse Ox 97.9 F 70 18 102/59 L 95 08/06/18 11:00 08/06/18 11:25 08/06/18 11:00 08/06/18 11:00 08/06/18 11:00 Oxygen Flow Rate (L/min) 4 Oxygen Delivery Method Nasal Cannula Weight: 113.1 kg Body Mass Index (BMI) 32.0 Intake and Output for Last 24 Hours 08/04/18 08/05/18 08/06/18 23:59 23:59 23:59 Intake Total 200 / 200 840 / 840 Output Total 350 / 350 1675 / 1675 Balance -150 / -150 -835 / -835 Microbiology Past 72 Hours 08/06/18 12:09 Gram Stain - Final Wound - Right Foot Laboratory Tests Past 24 Hrs 08/05/18 08/05/18 08/05/18 16:11 17:03 18:15 WBC RBC Hgb Hct MCV MCH MCHC RDW RDW Differential Plt Count MPV Immature Gran % (Auto) Neut % (Auto) Lymph % (Auto) [place] % (Auto) Eos % (Auto) Baso % (Auto) Absolute Neuts (auto) Absolute Lymphs (auto) Total Counted PT INR Specimen Type Sample Site VBG pH VBG pO2 VBG O2 Sat (Calc) VBG O2 Content VBG Base Excess POC Mix VBG pCO2 Pt Tmp O2 Delivery Device Liter Flow Blood Gas Notified Whom Blood Gas Notified Time Sodium Potassium Chloride Carbon Dioxide Anion Gap BUN Creatinine Estim Creat Clear Calc Est GFR (MDRD) Af Amer Est GFR (MDRD) Non-Af BUN/Creatinine Ratio Glucose Hemoglobin A1c 6.0 Calcium Iron TIBC Iron Saturation Ferritin Total Bilirubin AST ALT Alkaline Phosphatase Ammonia 13.0 Troponin I Total Protein Albumin Globulin Albumin/Globulin Ratio Triglycerides Cholesterol LDL Cholesterol VLDL Cholesterol HDL Cholesterol Vitamin B12 Folate Free T4 Urine Color Yellow Urine Clarity Clear Urine pH 6.5 Ur Specific Hurst 1.010 Urine Protein Negative Urine Glucose (UA) Normal Urine Ketones Negative Urine Occult Blood Negative Urine Nitrite Negative Urine Bilirubin Negative Urine Urobilinogen Normal Ur Leukocyte Esterase 100 H Urine RBC 0 SEEN Urine WBC 0-5 SEEN Ur Squamous Epith Cells 0 SEEN Urine Bacteria 0 SEEN Urine Mucus 0 SEEN S.aureus Protein A PCR MRSA (PCR) 08/05/18 08/05/18 08/05/18 18:15 20:05 20:05 WBC RBC Hgb Hct MCV MCH MCHC RDW RDW Differential Plt Count MPV Immature Gran % (Auto) Neut % (Auto) Lymph % (Auto) [place] % (Auto) Eos % (Auto) Baso % (Auto) Absolute Neuts (auto) Absolute Lymphs (auto) Total Counted PT INR Specimen Type Sample Site VBG pH VBG pO2 VBG O2 Sat (Calc) VBG O2 Content VBG Base Excess POC Mix VBG pCO2 Pt Tmp O2 Delivery Device Liter Flow Blood Gas Notified Whom Blood Gas Notified Time Sodium Potassium Chloride Carbon Dioxide Anion Gap BUN Creatinine Estim Creat Clear Calc Est GFR (MDRD) Af Amer Est GFR (MDRD) Non-Af BUN/Creatinine Ratio Glucose Hemoglobin A1c Calcium Iron 20 L TIBC 382 Iron Saturation 5.2 L Ferritin 81 Total Bilirubin AST ALT Alkaline Phosphatase Ammonia Troponin I < 0.015 < 0.015 Total Protein Albumin Globulin Albumin/Globulin Ratio Triglycerides Cholesterol LDL Cholesterol VLDL Cholesterol HDL Cholesterol Vitamin B12 Folate 29.00 Free T4 0.82 Urine Color Urine Clarity Urine pH Ur Specific Hurst Urine Protein Urine Glucose (UA) Urine Ketones Urine Occult Blood Urine Nitrite Urine Bilirubin Urine Urobilinogen Ur Leukocyte Esterase Urine RBC Urine WBC Ur Squamous Epith Cells Urine Bacteria Urine Mucus S.aureus Protein A PCR MRSA (PCR) 08/05/18 08/05/18 08/05/18 20:05 20:17 23:30 WBC RBC Hgb Hct MCV MCH MCHC RDW RDW Differential Plt Count MPV Immature Gran % (Auto) Neut % (Auto) Lymph % (Auto) [place] % (Auto) Eos % (Auto) Baso % (Auto) Absolute Neuts (auto) Absolute Lymphs (auto) Total Counted PT INR Specimen Type ROSIO Sample Site OTHER VBG pH 7.41 VBG pO2 35 VBG O2 Sat (Calc) 67 VBG O2 Content 30 VBG Base Excess 4 H POC Mix VBG pCO2 Pt Tmp 44.5 O2 Delivery Device Nasal Can Liter Flow 3.0 Blood Gas Notified Whom [facility] Blood Gas Notified Time 1954 Sodium Potassium Chloride Carbon Dioxide Anion Gap BUN Creatinine Estim Creat Clear Calc Est GFR (MDRD) Af Amer Est GFR (MDRD) Non-Af BUN/Creatinine Ratio Glucose Hemoglobin A1c Calcium Iron TIBC Iron Saturation Ferritin Total Bilirubin AST ALT Alkaline Phosphatase Ammonia Troponin I < 0.015 Total Protein Albumin Globulin Albumin/Globulin Ratio Triglycerides Cholesterol LDL Cholesterol VLDL Cholesterol HDL Cholesterol Vitamin B12 Pending Folate Free T4 Urine Color Urine Clarity Urine pH Ur Specific Hurst Urine Protein Urine Glucose (UA) Urine Ketones Urine Occult Blood Urine Nitrite Urine Bilirubin Urine Urobilinogen Ur Leukocyte Esterase Urine RBC Urine WBC Ur Squamous Epith Cells Urine Bacteria Urine Mucus S.aureus Protein A PCR MRSA (PCR) 08/06/18 08/06/18 08/06/18 06:15 06:15 06:15 WBC 4.5 RBC 3.40 L Hgb 9.4 L Hct 32.0 L MCV 94.1 H MCH 27.6 MCHC 29.4 L RDW 17.6 H RDW Differential 58.1 H Plt Count 101 L MPV 13.0 H Immature Gran % (Auto) 0.200 Neut % (Auto) 81.9 H Lymph % (Auto) 8.2 L [place] % (Auto) 8.6 Eos % (Auto) 1.1 Baso % (Auto) 0.0 Absolute Neuts (auto) 3.7 Absolute Lymphs (auto) 0.37 L Total Counted Not Reportable PT 61.3 H INR 7.0 H* Specimen Type Sample Site VBG pH VBG pO2 VBG O2 Sat (Calc) VBG O2 Content VBG Base Excess POC Mix VBG pCO2 Pt Tmp O2 Delivery Device Liter Flow Blood Gas Notified Whom Blood Gas Notified Time Sodium 141 Potassium 4.1 Chloride 100 Carbon Dioxide 30.0 Anion Gap 11 BUN 116 H* Creatinine 2.55 H Estim Creat Clear Calc 34.03 Est GFR (MDRD) Af Amer 33 L Est GFR (MDRD) Non-Af 27 L BUN/Creatinine Ratio 45.5 H Glucose 152 H Hemoglobin A1c Calcium 8.5 Iron TIBC Iron Saturation Ferritin Total Bilirubin 1.30 H AST 20 ALT 19 Alkaline Phosphatase 131 H Ammonia Troponin I Total Protein 5.5 L Albumin 2.4 L Globulin 3.1 Albumin/Globulin Ratio 0.8 L Triglycerides 55 Cholesterol 74 LDL Cholesterol 41 VLDL Cholesterol 11 HDL Cholesterol 22 L Vitamin B12 Folate Free T4 Urine Color Urine Clarity Urine pH Ur Specific Hurst Urine Protein Urine Glucose (UA) Urine Ketones Urine Occult Blood Urine Nitrite Urine Bilirubin Urine Urobilinogen Ur Leukocyte Esterase Urine RBC Urine WBC Ur Squamous Epith Cells Urine Bacteria Urine Mucus S.aureus Protein A PCR MRSA (PCR) 08/06/18 12:09 WBC RBC Hgb Hct MCV MCH MCHC RDW RDW Differential Plt Count MPV Immature Gran % (Auto) Neut % (Auto) Lymph % (Auto) [place] % (Auto) Eos % (Auto) Baso % (Auto) Absolute Neuts (auto) Absolute Lymphs (auto) Total Counted PT INR Specimen Type Sample Site VBG pH VBG pO2 VBG O2 Sat (Calc) VBG O2 Content VBG Base Excess POC Mix VBG pCO2 Pt Tmp O2 Delivery Device Liter Flow Blood Gas Notified Whom Blood Gas Notified Time Sodium Potassium Chloride Carbon Dioxide Anion Gap BUN Creatinine Estim Creat Clear Calc Est GFR (MDRD) Af Amer Est GFR (MDRD) Non-Af BUN/Creatinine Ratio Glucose Hemoglobin A1c Calcium Iron TIBC Iron Saturation Ferritin Total Bilirubin AST ALT Alkaline Phosphatase Ammonia Troponin I Total Protein Albumin Globulin Albumin/Globulin Ratio Triglycerides Cholesterol LDL Cholesterol VLDL Cholesterol HDL Cholesterol Vitamin B12 Folate Free T4 Urine Color Urine Clarity Urine pH Ur Specific Hur[place] Urine Protein Urine Glucose (UA) Urine Ketones Urine Occult Blood Urine Nitrite Urine Bilirubin Urine Urobilinogen Ur Leukocyte Esterase Urine RBC Urine WBC Ur Squamous Epith Cells Urine Bacteria Urine Mucus S.aureus Protein A PCR POSITIVE H MRSA (PCR) POSITIVE H POC Glucose 08/06/18 08/06/18 08/06/18 16:19 11:03 07:35 POC Glucose 280 H 172 H 141 H 08/05/18 22:15 POC Glucose 198 H Assessment/Plan All Active Problems Vasculitis (Acute) Abscess of right leg (Acute) Abscess of right foot (Acute) Gangrene (Acute) Severe sepsis (Acute) 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) Abscess of left leg (Acute) Ulcer of right lower extremity with fat layer exposed (Acute) Ulcer of left lower extremity with fat layer exposed (Acute) Ulcerations right and left lower extremity down to subcutaneous tissue and muscle layers Hx of necrotizing fasciitis s/p toe amputation and fasciotomies Diabetes with neuropathy Suspected peripheral vascular disease (no evidence of acute ischemia) bilateral lower extremity A culture was obtained of the right medial hindfoot/ankle ulceration as there is oder present. Spoke with Dr. Hunter, and patient will resume Unasyn, we will follow cultures, and Infectious Disease will be consulted. New xrays were ordered. Reviewed noninvasive lower extremity arterial studies - no evidence of significant arterial occlusion, however increased ABIs suggest arterial calcification - it is recommended patient does follow up with vascular surgery due to suspected chronic lower extremity vascular disease. Wound care: Wet to dry Dakin's (1/4 strength) with overlying dry gauze, kerlix, abd pads and gregory dressings bilateral lower extremity wounds - change BID. Keep offloaded at all times. Podiatry will continue to follow.
[2018-08-06] MEDS: Magnesium Hydroxide 30 ML UDC PO (17:27)
[2018-08-06 17:56] LABS: Prothrombin Time (Protime)PT. 52.3 SECONDS (11.7-14.9)
[2018-08-06 18:01] LABS: International Normalized Ratio 5.8
--- NOTE | 2018-08-06 18:27 | NURSING ---
pt care and medication administration administered by student nurse carlene yuen under supervision of this RN
[2018-08-06] MEDS: Glucerna Shake 120 ML LIQUID PO (22:44)
[2018-08-06] MEDS: Atorvastatin Calcium 10 MG Tablet PO (22:48)
[2018-08-06 23:46] LABS: Bedside Glucose 200 mg/dL (70-110)
[2018-08-07] VITALS (13 sets, daily range): BP systolic 101–106; BP diastolic 59–69; PULSE 71–92; RESP 9–18; TEMP 36.1–36.6; O2SAT 94–98
[2018-08-07 02:37] LABS: Urine Sodium 36 mmol/L (Not Establ.)
[2018-08-07 05:52] LABS: Hemoglobin 9.6 g/dl (13.0-16.5); Mean Corp Hgb Conc 29.1 g/gl (32-36); Mean Corpuscular Hgb 27.4 pg (27.0-32.0); Mean Platelet Vol. 12.7 fl (6.2-12.0); Platelet Count 88 K/mm3 (150-450); RBC Distribution Width CV 17.3 % (11.6-14.6); RBC Distribution Width SD 57.1 fl (35.1-43.9); Red Blood Count 3.51 M/mm3 (4.6-6.2); White Blood Count 4.2 K/mm3 (4.4-11.0)
[2018-08-07 05:56] LABS: Prothrombin Time (Protime)PT. 35.1 SECONDS (11.7-14.9)
[2018-08-07 06:10] LABS: Scan Indicated on CBC? Y/N NO
[2018-08-07 06:16] LABS: Magnesium 2.7 mg/dL (1.6-2.6)
[2018-08-07 06:18] LABS: Anion Gap 9 (5-15); BUN 108 mg/dL (7-18); BUN/Creat Ratio 51.9 RATIO (10-20); Calcium,Total 8.5 mg/dL (8.5-10.1); Chloride 100 mmol/L (98-107); Creatinine, Serum 2.08 mg/dL (0.70-1.30); EST Glomerular Filtration Rate 34 mL/min (>60); Est Glom Filt Rate - Afr Amer 42 mL/min (>60); Estimated Creatinine Clearance 41.71 ml/min; Glucose 144 mg/dL (74-106); Potassium 3.2 mmol/L (3.5-5.1); Sodium Level 143 mmol/L (136-145)
[2018-08-07 06:19] LABS: International Normalized Ratio 3.5
[2018-08-07 06:56] LABS: Bedside Glucose 105 mg/dL (70-110)
--- NOTE | 2018-08-07 08:33 | PN.CARD_ITS ---
Subjectve: Patient seen and evaluated. Appears to be breathing much better today. Attaining negative diuresis. Objective: Vital Signs Temp Pulse Resp BP Pulse Ox 97.0 F L 75 9 L 106/63 97 08/07/18 06:01 08/07/18 07:07 08/07/18 06:01 08/07/18 06:01 08/07/18 06:01 Oxygen Flow Rate (L/min) 4 Oxygen Delivery Method Nasal Cannula Weight: 247 lb 2.211 oz Body Mass Index (BMI) 32.0 Intake and Output for Last 24 Hours 08/05/18 08/06/18 08/07/18 23:59 23:59 23:59 Intake Total 200 / 200 1481.8 / 1481.8 149 / 149 Output Total 350 / 350 3525 / 3525 2350 / 2350 Balance -150 / -150 -2043.2 / -2043.2 -2201 / -2201 General: Awake, Alert, Oriented x 3, Ill Appearing HEENT: PERRL, EOMI, Sclera Non Icteric Neck: Supple, Good ROM, No Lymph Node Enlargement Lungs: Diminished Timothy Bases Cardiovascular: Regular Rhythm, Normal S1, Normal S2, No Murmurs, No Rubs, No Gallops Vascular: No Carotid Bruits, Normal Femoral Pulses, Normal Radial Pulses, Normal Dorsalis Pedal Pulse, Normal Posterior Tibial Pulses Abdomen: Bowel Sounds Present, Soft, Non Tender, No HSM, No Organomegaly Extremities: No Cyanosis, No Clubbing, No edema Neurological: No Focal Motor or Sensory Deficit 08/06/18 17:32: PT 52.3 H, INR 5.8 H* 08/07/18 05:09: PT 35.1 H, INR 3.5 H* 08/07/18 05:09: WBC 4.2 L, RBC 3.51 L, Hgb 9.6 L, Hct 33.0 L, MCV 94.0, MCH 27.4 , MCHC 29.1 L, RDW 17.3 H, RDW Differential 57.1 H, Plt Count 88 L, MPV 12.7 H 08/07/18 05:09: Sodium 143, Potassium 3.2 L, Chloride 100, Carbon Dioxide 34.0 H , Anion Gap 9, BUN 108 H*, Creatinine 2.08 H, Est GFR (MDRD) Af Amer 42 L, Est GFR (MDRD) Non-Af 34 L, BUN/Creatinine Ratio 51.9 H, Glucose 144 H, Calcium 8.5 08/07/18 05:15: Magnesium 2.7 H Rhythm: EKG: ECHO: Stress Test: Cardiac Cath: PCI: CT Surgery: Holter monitor: EPS: PPM: CXR: Chest CT Scan: Medical Necessity - Tobacco Use Smoking Status: Former smoker Tobacco Use: Cigarettes Assessment/Plan 1. Shortness of breath-congestive heart failure chronic systolic * He presents with shortness of breath and evidence of orthopnea. He does have minimal pedal edema. His previous echocardiogram however demonstrated left ventricular systolic dysfunction with significant valvular abnormalities. I suspect this is the etiology of his heart failure which has been worsened by his worsening renal function. His BUN remained stable as well as his creatinine which appears to be declining. An occult GI bleed needs to be excluded due to the markedly elevated BUN and his elevated INR. * My recommendation at this time will be to continue him on intravenous Lasix for at least 1 more day * Continue beta-dilia with atenolol twice a day * Discontinue his Cardizem * Further recommendations will be made based on his response to the above. * Obtain chest x-ray today or tomorrow 2. Valvular heart disease * He does have evidence of valvular heart disease with moderately severe mitral regurgitation and elevated pulmonary to systolic pressure. He also has biatrial enlargement. At this time recommendation will be to treat this with aggressive diuretic therapy. * In light of his worsening renal function I would not suggest the addition of an MARIO inhibitor. * 3. Hypertension * His blood pressure appears to be under fair control on the current medical therapy. Indeed it is actually low and I would recommend that we discontinue his diltiazem at this time and continue him on the beta-dilia. * I would also recommend reducing the dose of his atenolol. Hopefully this would improve his perfusion pressure. * No particular changes will be made at this time we will reevaluate him in a.m. Overall he appears to be doing better. * * Thank you for allowing me to participate in the care of your patient. Please don't hesitate to call if any issues arise
[2018-08-07] MEDS: Ferrous Sulfate 325 MG Tablet PO ×2 (08:37→15:40)
[2018-08-07] MEDS: Ascorbic Acid 500 MG Tablet PO ×2 (08:38→15:40)
[2018-08-07] MEDS: Aspirin E.C. 81 MG Tablet PO (08:38)
[2018-08-07] MEDS: Atenolol 50 MG Tablet PO (08:38)
[2018-08-07] MEDS: Multivitamins,Ther W-Minerals Tablet 1 TABLET PO (08:38)
--- NOTE | 2018-08-07 09:39 | PCM.PROGNOTE ---
Subjective: Patient seen and examined. Notes improvement of shortness of breath and edema. No acute events overnight. Denies current complaints. - Physical Exam General: Alert, Oriented x3, Cooperative, No apparent distress HEENT: Atraumatic, PERRLA, EOMI, Normocephalic Neck: Supple, No JVD, Negative Carotid Bruits Lungs: Clear to auscultation, Diminished Cardiovascular: - - Atrial fibrillation, rate controlled. Abdomen: Bowel Sounds Present, Soft, Non Tender, Non-Distended, Obese Extremities: No clubbing, No cyanosis, Capillary Refill Less than 3 Seconds, Edema - Abdominal, bilateral upper thigh +2 Skin: - - Extensive bilateral lower extremity wounds, right greater than left. Bilateral upper extremity scabbing secondary to picking. Musculoskeletal: No Tenderness to Palpation of Joints or Extremities Neurological: Cranial nerves II-XII grossly intact, Neuro grossly intact Psych/Mental Status: Normal Affect, Appropriate Vital Signs Temp Pulse Resp BP Pulse Ox 97.0 F L 75 9 L 106/63 96 08/07/18 06:01 08/07/18 07:07 08/07/18 06:01 08/07/18 06:01 08/07/18 08:59 Oxygen Flow Rate (L/min) 4 Oxygen Delivery Method Room Air Weight: 247 lb 2.211 oz Body Mass Index (BMI) 32.0 Intake and Output for Last 24 Hours 08/05/18 08/06/18 08/07/18 23:59 23:59 23:59 Intake Total 200 / 200 1481.8 / 1481.8 149 / 149 Output Total 350 / 350 3525 / 3525 2350 / 2350 Balance -150 / -150 -2043.2 / -2043.2 -2201 / -2201 Microbiology Past 72 Hours 08/06/18 12:09 Gram Stain - Final Wound - Right Foot Laboratory Tests Past 24 Hrs 08/05/18 08/05/18 08/06/18 23:30 23:30 12:09 WBC RBC Hgb Hct MCV MCH MCHC RDW RDW Differential Plt Count MPV PT INR Sodium Potassium Chloride Carbon Dioxide Anion Gap BUN Creatinine Estim Creat Clear Calc Est GFR (MDRD) Af Amer Est GFR (MDRD) Non-Af BUN/Creatinine Ratio Glucose Calcium Magnesium Ur Random Sodium 36 Urine Creatinine 32.40 S.aureus Protein A PCR POSITIVE H MRSA (PCR) POSITIVE H 08/06/18 08/07/18 08/07/18 17:32 05:09 05:09 WBC 4.2 L RBC 3.51 L Hgb 9.6 L Hct 33.0 L MCV 94.0 MCH 27.4 MCHC 29.1 L RDW 17.3 H RDW Differential 57.1 H Plt Count 88 L MPV 12.7 H PT 52.3 H 35.1 H INR 5.8 H* 3.5 H* Sodium Potassium Chloride Carbon Dioxide Anion Gap BUN Creatinine Estim Creat Clear Calc Est GFR (MDRD) Af Amer Est GFR (MDRD) Non-Af BUN/Creatinine Ratio Glucose Calcium Magnesium Ur Random Sodium Urine Creatinine S.aureus Protein A PCR MRSA (PCR) 08/07/18 08/07/18 05:09 05:15 WBC RBC Hgb Hct MCV MCH MCHC RDW RDW Differential Plt Count MPV PT INR Sodium 143 Potassium 3.2 L Chloride 100 Carbon Dioxide 34.0 H Anion Gap 9 BUN 108 H* Creatinine 2.08 H Estim Creat Clear Calc 41.71 Est GFR (MDRD) Af Amer 42 L Est GFR (MDRD) Non-Af 34 L BUN/Creatinine Ratio 51.9 H Glucose 144 H Calcium 8.5 Magnesium 2.7 H Ur Random Sodium Urine Creatinine S.aureus Protein A PCR MRSA (PCR) POC Glucose 08/07/18 08/06/18 08/06/18 06:48 22:26 16:19 POC Glucose 105 200 H 280 H 08/06/18 11:03 POC Glucose 172 H Medical Necessity - Tobacco Use Smoking Status: Former smoker Tobacco Use: Cigarettes Assessment/Plan All Active Problems Vasculitis (Acute) Abscess of right leg (Acute) Abscess of right foot (Acute) Gangrene (Acute) Severe sepsis (Acute) 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 Acute on chronic systolic CHF-chest x-ray on admission shows bilateral pleural effusions. Aponte placed in ER for strict I's and O's. Daily weight. Echocardiogram May 2018 showed an EF of 50%, moderately severe mitral valve insufficiency, moderate tricuspid valve insufficiency, RVSP estimated to be 67 mmHg, severe pulmonary hypertension. Cardiology consulted. Continue Lasix drip. Continue beta-dilia. Cardizem discontinued. -3.4 L over last 24 hours. Repeat CXR in a.m. 2. Acute encephalopathy-unclear etiology. Resolved. Urine and blood cultures pending. Blood gas and ammonia within normal limits. 3. Acute kidney injury on chronic kidney disease stage III-suspect secondary to urinary retention. Aponte placed in ER. Creatinine improving. Trend BMP. Nephrology following. US kidney and bladder pending. 4. Paroxysmal atrial fibrillation with supratherapeutic INR-Coumadin on hold. Vitamin K 5 mg ?1 given. Trend INR. 5. Chronic extensive wounds including bilateral lower extremities, right greater than left, ischial and sacral-frequent position changes. Wound nurse consult. Consult Dr. Gruber. Wounds present on admission. History of multiple organisms and wound cultures. History of osteomyelitis. Wound culture pending. Continue IV unasyn. ID consulted. Recommend outpatient follow up with vascular surgery for suspected chronic vascular disease. Dressing changes as ordered: wet to dry dakin's with gauze, kerlix, abd pads and gregory BLLE. Change BID. 6. Hypertension-Cardizem discontinued. Continue atenolol. 7. Hyperlipidemia-continue statin. 8. Type 2 diabetes mellitus-hold oral regimen. Accu-Cheks before meals at bedtime with sliding scale insulin. Check hemoglobin A1c. 9. Chronic iron deficiency anemia/anemia of chronic disease-stable, trend CBC. 10. History of CVA with mild left hemiparesis-continue aspirin, statin. PT/OT. 11. Debility/weakness-resides at SNF. Reported to use Swapnil lift. Unable to ambulate. PT/OT. 12. Depression-continue home paroxetine regimen. 13. Protein calorie malnutrition-nutrition consult. 14. Obesity-nutrition consult for dietary recommendations. DVT prophylaxis-Coumadin on hold secondary to supratherapeutic INR. This patient was seen by NADINE Chow under the supervision of Dr. Hunter.
[2018-08-07 11:25] LABS: Bedside Glucose 143 mg/dL (70-110)
--- NOTE | 2018-08-07 14:37 | PCM.RX.CS ---
Consult Pharmacy has been consulted to manage selected antiobiotic: Vancomycin Type of Consult: New start Suspected Infection: Other Labs: Sodium 143 mmol/L (136-145) 08/07/18 05:09 Potassium 3.2 mmol/L (3.5-5.1) L 08/07/18 05:09 Chloride 100 mmol/L (98-107) 08/07/18 05:09 Carbon Dioxide 34.0 mmol/L (21.0-32.0) H 08/07/18 05:09 Anion Gap 9 (5-15) 08/07/18 05:09 BUN 108 mg/dL (7-18) H* 08/07/18 05:09 Creatinine 2.08 mg/dL (0.70-1.30) H 08/07/18 05:09 Est GFR (MDRD) Af Amer 42 mL/min (>60) L 08/07/18 05:09 Est GFR (MDRD) Non-Af 34 mL/min (>60) L 08/07/18 05:09 BUN/Creatinine Ratio 51.9 RATIO (10-20) H 08/07/18 05:09 Glucose 144 mg/dL (74-106) H 08/07/18 05:09 Microbiology: Microbiology 08/06/18 12:09 Wound - Right Foot Gram Stain - Final 08/06/18 12:09 Wound - Right Foot Wound Culture - Preliminary GNR Poss Pseudomonas sp GNR lactose print controller 08/05/18 16:11 Urine, Catheterized Urine Culture - Preliminary Culture exhibits no growth. Weight used for dosin kg Estimated Creatinine Clearance: 42 ml/min Goal Trough: 10-15 mcg/mL Pharmacy Plan for Drug Dosing: Start with initial dose of 1750mg IV x1, then continue at 1500mg IV q24h. Obtain trough before the 3rd dose. Pharmacy Service will continue to monitor and adjust dosing as required. Follow-Up Labs: Trough Vancomycin Labs to be done on [date and time ordered]: 08/09/18 13:30
--- NOTE | 2018-08-07 14:43 | PHA.PHARE_ITS ---
Consult Pharmacy has been consulted to manage selected antiobiotic: Vancomycin Type of Consult: New start Suspected Infection: Other Labs: Sodium 143 mmol/L (136-145) 08/07/18 05:09 Potassium 3.2 mmol/L (3.5-5.1) L 08/07/18 05:09 Chloride 100 mmol/L (98-107) 08/07/18 05:09 Carbon Dioxide 34.0 mmol/L (21.0-32.0) H 08/07/18 05:09 Anion Gap 9 (5-15) 08/07/18 05:09 BUN 108 mg/dL (7-18) H* 08/07/18 05:09 Creatinine 2.08 mg/dL (0.70-1.30) H 08/07/18 05:09 Est GFR (MDRD) Af Amer 42 mL/min (>60) L 08/07/18 05:09 Est GFR (MDRD) Non-Af 34 mL/min (>60) L 08/07/18 05:09 BUN/Creatinine Ratio 51.9 RATIO (10-20) H 08/07/18 05:09 Glucose 144 mg/dL (74-106) H 08/07/18 05:09 Microbiology: Microbiology 08/06/18 12:09 Wound - Right Foot Gram Stain - Final 08/06/18 12:09 Wound - Right Foot Wound Culture - Preliminary GNR Poss Pseudomonas sp GNR lactose salvage diver 08/05/18 16:11 Urine, Catheterized Urine Culture - Preliminary Culture exhibits no growth. Weight used for dosin kg Estimated Creatinine Clearance: 42 ml/min Goal Trough: 10-15 mcg/mL Pharmacy Plan for Drug Dosing: Start with initial dose of 1750mg IV x1, then continue at 1500mg IV q24h. Obtain trough before the 3rd dose. Pharmacy Service will continue to monitor and adjust dosing as required. Follow-Up Labs: Trough Vancomycin Labs to be done on [date and time ordered]: 08/09/18 13:30
[2018-08-07] MEDS: Tamsulosin HCl 0.4 MG Capsule PO (15:40)
[2018-08-07 15:51] LABS: Bedside Glucose 133 mg/dL (70-110)
[2018-08-07] MEDS: Glucerna Shake 120 ML LIQUID PO ×2 (18:03→22:33)
--- NOTE | 2018-08-07 18:12 | NURSING ---
medication pass and pt care completed byDiallo suarez student nurse reviewed under supervision of this RN
[2018-08-07] MEDS: Insulin Lispro 100 UNIT/ML INSULN.PEN SC (22:33)
[2018-08-07] MEDS: Atorvastatin Calcium 10 MG Tablet PO (22:34)
[2018-08-07 22:51] LABS: Bedside Glucose 183 mg/dL (70-110)
[2018-08-08] VITALS (15 sets, daily range): BP systolic 100–112; BP diastolic 66–75; PULSE 74–87; RESP 10–18; TEMP 35.8–36.7; O2SAT 94–99
--- NOTE | 2018-08-08 00:51 | PCM.PROGNOTE ---
Subjective: Patient being followed for bilateral lower extremity wounds. Foot/ankle tib/fib xrays reviewed - negative for gas in tissues or acute bone changes. Wound culture growing possible pseudomonas and GNR lactose communications tower climber. MRSA PCR was positive - vancomycin has been added. - Physical Exam Vital Signs Temp Pulse Resp BP Pulse Ox 97.9 F 79 16 102/69 97 08/07/18 21:14 08/07/18 23:07 08/07/18 21:14 08/07/18 21:14 08/07/18 21:14 Oxygen Flow Rate (L/min) 4 Oxygen Delivery Method Nasal Cannula Weight: 112.1 kg Body Mass Index (BMI) 32.0 Intake and Output for Last 24 Hours 08/06/18 08/07/18 08/08/18 23:59 23:59 23:59 Intake Total 1481.8 / 1481.8 2935.6 / 2935.6 Output Total 3525 / 3525 6325 / 6325 Balance -2043.2 / -2043.2 -3389.4 / -3389.4 Microbiology Past 72 Hours 08/06/18 12:09 Gram Stain - Final Wound - Right Foot Wound Culture - Preliminary GNR Poss Pseudomonas sp GNR lactose communications tower climber 08/05/18 16:11 Urine Culture - Preliminary Urine, Catheterized Culture exhibits no growth. Laboratory Tests Past 24 Hrs 08/05/18 08/05/18 08/07/18 23:30 23:30 05:09 WBC RBC Hgb Hct MCV MCH MCHC RDW RDW Differential Plt Count MPV PT 35.1 H INR 3.5 H* Sodium Potassium Chloride Carbon Dioxide Anion Gap BUN Creatinine Estim Creat Clear Calc Est GFR (MDRD) Af Amer Est GFR (MDRD) Non-Af BUN/Creatinine Ratio Glucose Calcium Magnesium Ur Random Sodium 36 Urine Creatinine 32.40 08/07/18 08/07/18 08/07/18 05:09 05:09 05:15 WBC 4.2 L RBC 3.51 L Hgb 9.6 L Hct 33.0 L MCV 94.0 MCH 27.4 MCHC 29.1 L RDW 17.3 H RDW Differential 57.1 H Plt Count 88 L MPV 12.7 H PT INR Sodium 143 Potassium 3.2 L Chloride 100 Carbon Dioxide 34.0 H Anion Gap 9 BUN 108 H* Creatinine 2.08 H Estim Creat Clear Calc 41.71 Est GFR (MDRD) Af Amer 42 L Est GFR (MDRD) Non-Af 34 L BUN/Creatinine Ratio 51.9 H Glucose 144 H Calcium 8.5 Magnesium 2.7 H Ur Random Sodium Urine Creatinine POC Glucose 08/07/18 08/07/18 08/07/18 22:28 15:45 11:12 POC Glucose 183 H 133 H 143 H 08/07/18 06:48 POC Glucose 105 Medical Necessity - Tobacco Use Smoking Status: Former smoker Tobacco Use: Cigarettes Assessment/Plan All Active Problems Vasculitis (Acute) Abscess of right leg (Acute) Abscess of right foot (Acute) Gangrene (Acute) Severe sepsis (Acute) 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) Abscess of left leg (Acute) Ulcer of right lower extremity with fat layer exposed (Acute) Ulcer of left lower extremity with fat layer exposed (Acute) Ulcerations right and left lower extremity down to subcutaneous tissue and muscle layers Hx of necrotizing fasciitis s/p toe amputation and fasciotomies Diabetes with neuropathy Suspected peripheral vascular disease (no evidence of acute ischemia) bilateral lower extremity Reviewed foot/ankle tib/fib xrays and no gas or acute changes noted. Continue to follow cultures, patient remains on Unasyn and Vancomycin has been added, Infectious Disease has been consulted. Noninvasive lower extremity arterial studies have been reviewed - no evidence of significant arterial occlusion, however increased ABIs suggest arterial calcification - it is recommended patient does follow up with vascular surgery due to suspected chronic lower extremity vascular disease. Wound care: Wet to dry Dakin's (1/4 strength) with overlying dry gauze, kerlix, abd pads and gregory dressings bilateral lower extremity wounds - change BID. Keep offloaded at all times. Podiatry will follow.
[2018-08-08] MEDS: Acetaminophen 325 MG Tablet 650 MG PO ×2 (03:42→12:01)
--- NOTE | 2018-08-08 04:30 | RAD_ITS ---
STUDY: X-RAY CHEST REASON FOR EXAM: Male, 63 years old. CHF TECHNIQUE: Single AP portable view of the chest. COMPARISON: 08/05/2018 FINDINGS: Stable right PICC Overall, continued hypoinflated lungs with decreased interstitial edema and vascular congestion bilaterally. Decreased bilateral effusions and consolidation. Remainder is stable. RAD/Chest 1 View (Portable) IMPRESSION: Interval decrease in interstitial edema, bibasilar consolidation and effusions Electronically Signed: John Craven DO at 5:11 EDT Tel , Service support ,
[2018-08-08 05:48] LABS: International Normalized Ratio 1.8; Prothrombin Time (Protime)PT. 21.2 SECONDS (11.7-14.9)
--- NOTE | 2018-08-08 05:55 | US_ITS ---
STUDY: RENAL ULTRASOUND - COMPLETE REASON FOR EXAM: Male, 63 years old. Acute renal failure TECHNIQUE: Ultrasound evaluation of the kidneys was performed with real-time and static lima-scale imaging. COMPARISON: None. FINDINGS: RIGHT KIDNEY: Normal location of the right kidney, which is normal in size. The right kidney measures 14.9 x 6.9 x 7.4 cm. There is a lobulated cortex of the right kidney. The renal cortex measures 1.7 cm. Multiple cysts measuring up to 5.9 cm. There are no right renal calculi. There is no right hydronephrosis. DISTAL RIGHT URETER: There is non-visualization of the distal right ureter. LEFT KIDNEY: Normal location of the left kidney, which is normal in size. The left kidney measures 11.3 x 6.0 x 7.2 cm. There is lobulated cortex of the left kidney with numerous cysts. The renal cortex measures 2.4 cm. Multiple cysts measuring up to 7.6 cm. There are no left renal calculi. There is no left hydronephrosis. DISTAL LEFT URETER: There is non-visualization of the distal left ureter. Aponte catheter decompressed the urinary bladder. US/Kidney and Bladder IMPRESSION: Numerous cysts are noted of the kidneys. Electronically Signed: Pierre Gomez DO at 22:20 EDT Tel [phone], Service support ,
[2018-08-08 06:00] LABS: Albumin, Serum 2.5 g/dL (3.2-5.0); BUN 88 mg/dL (7-18); BUN/Creat Ratio 53.7 RATIO (10-20); Chloride 99 mmol/L (98-107); Creatinine, Serum 1.64 mg/dL (0.70-1.30); EST Glomerular Filtration Rate 45 mL/min (>60); Est Glom Filt Rate - Afr Amer 55 mL/min (>60); Estimated Creatinine Clearance 52.91 ml/min; Glucose 144 mg/dL (74-106); Magnesium 2.2 mg/dL (1.6-2.6); Phosphorus 3.2 mg/dL (2.5-4.9); Sodium Level 144 mmol/L (136-145)
[2018-08-08 06:42] LABS: Hematocrit 32.7 % (40-54); Hemoglobin 9.4 g/dl (13.0-16.5); Mean Corp Hgb Conc 28.7 g/gl (32-36); Mean Corpuscular Hgb 26.5 pg (27.0-32.0); Mean Corpuscular Volume 92.1 fL (80-94); Mean Platelet Vol. 11.6 fl (6.2-12.0); Platelet Count 65 K/mm3 (150-450); RBC Distribution Width CV 17.3 % (11.6-14.6); RBC Distribution Width SD 58.9 fl (35.1-43.9); Red Blood Count 3.55 M/mm3 (4.6-6.2); Scan Indicated on CBC? Y/N YES- FLAGS NOTED; White Blood Count 4.7 K/mm3 (4.4-11.0)
[2018-08-08 06:56] LABS: Bedside Glucose 137 mg/dL (70-110)
[2018-08-08 07:22] LABS: Differential Comment SCAN
[2018-08-08] MEDS: Multivitamins,Ther W-Minerals Tablet 1 TABLET PO (08:55)
[2018-08-08] MEDS: Ferrous Sulfate 325 MG Tablet PO ×2 (08:55→17:31)
[2018-08-08] MEDS: Ascorbic Acid 500 MG Tablet PO ×2 (08:56→17:31)
[2018-08-08] MEDS: Aspirin E.C. 81 MG Tablet PO (08:56)
[2018-08-08] MEDS: Atenolol 50 MG Tablet PO (08:58)
[2018-08-08] MEDS: Glucerna Shake 120 ML LIQUID PO ×2 (08:59→13:03)
--- NOTE | 2018-08-08 09:29 | PCM.CONS.R ---
Consultation - Renal 08/08/18 PCP/ Referring MD: Requesting physician: [] Primary care physician: Hong Sparks Reason for Consultation:: GUALBERTO, anasarca - History of Present Illness History of Present Illness: The patient is a 63 year old M admitted on August 05 for anasarca, CHF and acute renal failure. His BUN was 119 creatinine 2.8 on admission improved to 1.64 creatinine. His urine output was reported to be poor at the [facility]. Bustillo catheter was placed with good urinary output on Lasix drip. His anasarca and CHF, pleural effusion significantly improved with Lasix drip. He was found to be encephalopathic with confusion, hallucinations at [facility]. He was treated for osteomyelitis bilateral lower extremities at [facility] in [place]. His mentation is apparently better but remains a limited historian. He has been followed by the wound clinic for bilateral foot infections, venous stasis ulcers for the past month and a half. He underwent extensive I&D with fasciotomy of his right foot, ankle, lower leg. He is currently treated with iv antibiotics. Currently his legs are wrapped with decreased edema. He denied any history of sleep apnea. He denied using oxygen at home. He has been relatively debilitated at home prior to his leg wounds requiring a walker for ambulation assistance. He has a history of falls. He denies any chest pain with shortness of breath. Denies any nausea or vomiting. Past medical history is significant for diabetes mellitus type 2, neuropathy, hypertension, hyperlipidemia, paroxysmal atrial fibrillation with a history of stroke. He has had bilateral venous and arterial studies that were negative for DVT or PAD. He has a history of tobacco use and alcohol use. Quit about 2 months ago. He denies any history of kidney disease in the past. Baseline creatinine was 1.0 on June 09, 2018. Does not appear that he had any recent IV contrast studies [facility]. He did have a CT of the pelvis on June 13 that showed bilateral multiple renal cysts with the largest measuring 7.5 cm in the left kidney. Renal ultrasound pending from today. Echocardiogram from June 07, 2018 showed preserved LV function with EF of 50% however has biventricular dilatation with atrial dilation. He has moderate to severe RV function with severe pulmonary hypertension. She has severe mitral regurgitation and moderate tricuspid regurgitation. - Allergies Allergies: Allergies No Known Allergies Allergy (Verified 08/05/18 13:36) - Current Medications Current Medications: Current Medications Acetaminophen (Tylenol) 650 mg PO Q6H PRN PRN PRN Reason: PAIN Last Admin: 08/08/18 03:42 Dose: 650 mg Al Hydroxide/Mg Hydroxide (Mylanta Ii) 30 ml PO Q6H PRN PRN PRN Reason: Gastric burning Albuterol Sulfate (Ventolin Aerosols) 2.5 mg INHALATION Q2H PRN PRN PRN Reason: dyspnea, wheezing Ascorbic [facility] (Vitamin C) [facility] Last Admin: 08/08/18 08:56 Dose: 500 mg Aspirin (Ecotrin) 81 mg PO DAILY [facility] Last Admin: 08/08/18 08:56 Dose: 81 mg Atenolol (Tenormin (Beta Mikie)) 50 mg PO DAILY [facility] Last Admin: 08/08/18 08:58 Dose: 50 mg Atorvastatin Calcium (Lipitor) 10 mg PO QHS [facility] Last Admin: 08/07/18 22:34 Dose: 10 mg Cholecalciferol (Vitamin D) 1,000 unit PO DAILY [facility] Last Admin: 08/08/18 08:58 Dose: 1,000 unit Ferrous Sulfate (Ferrous Sulfate) [facility] Last Admin: 08/08/18 08:55 Dose: 325 mg Furosemide 500 mg/ N/A 50 mls @ 1 mls/hr CONT INF .Q50H [facility] PRN Reason: 10 MG/HR Last Admin: 08/06/18 12:21 Dose: 1 mls/hr Ampicillin Sodium/Sulbactam (Sodium 3 gm/ Sodium Chloride) 112 mls @ 150 mls/hr IV Q6 [facility] Last Admin: 08/08/18 05:09 Dose: 150 mls/hr Vancomycin IV Pharmacy to Dose (1 ea/ Sodium Chloride) 500 mls @ 250 mls/hr IV X1 PRN; Protocol PRN Reason: Rx to Dose Vancomycin HCl 1,500 mg/ (Sodium Chloride) 530 mls @ 250 mls/hr IV Q24H [facility] Insulin Human Lispro (Humalog Kwikpen (Bkc)) 0 unit SC ACHS [facility] PRN Reason: Protocol Last Admin: 08/08/18 08:15 Dose: Not Given Magnesium Hydroxide (Milk Of Magnesia) 30 ml PO DAILY PRN PRN Reason: Constipation Last Admin: 08/06/18 17:27 Dose: 30 ml Morphine Sulfate () 2 - 4 mg IV Q3H PRN PRN PRN Reason: Severe Pain (pain scale 6-10) Morphine Sulfate () 1 - 2 mg IV Q4H PRN PRN PRN Reason: Moderate Pain (pain scale 4-5) Multivitamins/Minerals (Multivitamin With Minerals) 1 tablet [facility] Last Admin: 08/08/18 08:55 Dose: 1 tablet Nutritional Formula (Juan - [place] Flavor) 1 packet PO BID [facility] Last Admin: 08/08/18 08:57 Dose: 1 packet Nutritional Formula (Lactose Free) (Glucerna Shake) 120 ml PO 4X/DAY [facility] Last Admin: 08/08/18 08:59 Dose: 120 ml Ondansetron HCl (Zofran) 4 mg IV Q8H PRN PRN PRN Reason: NAUSEA Paroxetine HCl (Paxil) 40 mg PO DAILY [facility] Last Admin: 08/08/18 08:57 Dose: 40 mg Promethazine HCl (Phenergan) 12.5 mg IV Q6H PRN PRN PRN Reason: NAUSEA/VOMITING Sodium Chloride () 5 - 30 ml IV UD PRN PRN Reason: SALINE FLUSH Last Admin: 08/06/18 06:16 Dose: 20 ml Sodium Hypochlorite (Dakins Solution 0.25% (1/2 Strength)) 1 applic TOPICAL BID [facility] PRN Reason: Protocol Last Admin: 08/07/18 22:32 Dose: 1 applicatio Tamsulosin HCl (Flomax) 0.4 mg PO DAILY@1730 [facility] Last Admin: 08/07/18 15:40 Dose: 0.4 mg Zinc Sulfate (Zinc Sulfate) 220 mg PO DAILY [facility] Last Admin: 08/08/18 08:59 Dose: 220 mg - Past Medical History Past Medical History (Chronic Problems): Chronic Problems 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 Anticipate Stage III or IV if excision done. Right ischial pressure sore, stage 2 (Chronic) at least a Stage II. Anticipate Stage III or IV if excision done. Pressure ulcer of sacral region, stage 2 (Chronic) at least a Stage II. Anticipate Stage III or IV if excision done. 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) Ulcer of right foot with necrosis of muscle (Chronic) Osteomyelitis (Chronic) Right foot infection (Chronic) Type 2 diabetes mellitus with diabetic polyneuropathy (Chronic) Localized edema (Chronic) Malnutrition (Chronic) Tobacco user (Chronic) HLD (hyperlipidemia) (Chronic) DM2 (diabetes mellitus, type 2) (Chronic) Depression (Chronic) Chronic low back pain (Chronic) Benign essential HTN (Chronic) - Past Surgical History Surgical History: tonsillectomy, - - Multiple wound debridements bilateral lower extremities. - Social History Marital Status: - Lives with currently at [facility] for debilitation Smoking Status: Former smoker Alcohol: Sober Drugs: None - Family History Paternal History Items: Heart Disease - His father had atrial fibrillation and an AICD/pacemaker Maternal History Items: Diabetes - His mother had severe diabetes mellitus and had amputations of her lower extremities. Review of Systems Constitutional: Reports: Malaise, Weakness, Fatigue. Denies: Anorexia, Chills, Fever Eyes: Denies: Blurred vision Cardiovascular: Reports: Edema. Denies: Chest Pain, Syncope Respiratory: Reports: Shortness of Breath, Wheezing. Denies: Cough Gastrointestinal: Denies: Abdominal Pain, Constipation, Diarrhea, Nausea, Vomiting Genitourinary: Reports: Retention, - - Reported decreased urine output f[facility]. Denies: Dysuria Musculoskeletal: Reports: - - Leg edema Skin: Reports: Wounds - Bilateral lower extremities status post I&D right foot Neurological: Reports: Balance problems, - - Generalized weakness, debilitation. Denies: Tremor, Seizures Hematologic/ Lymphatic: Reports: Hx of blood clot - DVT RLE - Physical Exam General: Alert, Oriented x3, Cooperative, No apparent distress, - - Poor historian HEENT: PERRLA, EOMI, - - Rosacea Oral: Dry Mucosa Neck: Supple Lungs: Rales, Wheezes Cardiovascular: Regular rate, Murmur - Holosystolic at apex Abdomen: Bowel Sounds Present, Soft, Non Tender, Non-Distended, Obese Extremities: Edema - Anasarca to the chest wall Skin: Ulcer/ Wound - Bilateral lower extremities, legs wrapped Musculoskeletal: Muscle Wasting, - - Arms and legs wrapped Lymphatic: No Cervical, Supraclavicular, or Inguinal Adenopathy Neurological: - - Generalized weakness Psych/Mental Status: Normal Affect, Appropriate, - - Slow to respond, occasional somnolence during history taking Vital Signs Temp Pulse Resp BP Pulse Ox 96.5 F L 78 18 100/72 94 08/08/18 09:00 08/08/18 09:00 08/08/18 09:02 08/08/18 09:00 08/08/18 07:04 Oxygen Flow Rate (L/min) 4 Oxygen Delivery Method Nasal Cannula Weight: 109.8 kg Body Mass Index (BMI) 32.0 Intake and Output for Last 24 Hours 08/06/18 08/07/18 08/08/18 23:59 23:59 23:59 Intake Total 1481.8 / 1481.8 2935.6 / 2935.6 648.5 / 648.5 Output Total 3525 / 3525 6325 / 6325 1775 / 1775 Balance -2043.2 / -2043.2 -3389.4 / -3389.4 -1126.5 / -1126.5 Microbiology Past 72 Hours 08/05/18 18:15 Blood Culture - Preliminary Blood Culture (Wb) - No Site/Description Given No growth in 48 hours. 08/06/18 12:09 Gram Stain - Final Wound - Right Foot Wound Culture - Preliminary GNR Poss Pseudomonas sp GNR lactose tunneller 08/05/18 16:11 Urine Culture - Preliminary Urine, Catheterized Culture exhibits no growth. Laboratory Tests Past 24 Hrs 08/08/18 08/08/18 08/08/18 05:09 05:09 05:09 WBC 4.7 RBC 3.55 L Hgb 9.4 L Hct 32.7 L MCV 92.1 MCH 26.5 L MCHC 28.7 L RDW 17.3 H RDW Differential 58.9 H Plt Count 65 L MPV 11.6 Differential Comment SCAN PT 21.2 H INR 1.8 Sodium 144 Potassium 3.0 L Chloride 99 Carbon Dioxide 35.0 H BUN 88 H Creatinine 1.64 H Estim Creat Clear Calc 52.91 Est GFR (MDRD) Af Amer 55 L Est GFR (MDRD) Non-Af 45 L BUN/Creatinine Ratio 53.7 H Glucose 144 H Calcium 8.0 L Phosphorus 3.2 Magnesium 2.2 Albumin 2.5 L POC Glucose 08/08/18 08/07/18 08/07/18 06:50 22:28 15:45 POC Glucose 137 H 183 H 133 H 08/07/18 11:12 POC Glucose 143 H Assessment/Plan All Active Problems Vasculitis (Acute) Abscess of right leg (Acute) Abscess of right foot (Acute) Gangrene (Acute) Severe sepsis (Acute) 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 GUALBERTO with creatinine improved from 2.8 to 1.64 today with bustillo insertion. May have had urinary retention. No kidney ultrasound on admission. Will check renal ultrasound today. CT abdomen pelvis on June 13 revealed bilateral multiple renal cysts with the largest measuring 7.5 cm on left kidney. Baseline creatinine 1.03 on 06/09/18. Urinalysis without proteinuria or microscopic hematuria therefore goes against diabetic nephropathy. No recent IV contrast exposure that I could see during last hospitalization. Recently hospitalized in LTAC with subsequent transferred to [facility]. 2. Anasarca likely due to fluid retention, pulmonary hypertension, valvular disease, biventricular dilation. Continue with diuretic therapy with Lasix drip. 3. Osteomyelitis of right foot, bilateral lower extremity wounds managed by wound care center on IV antibiotic therapy. Recent hospitalization for I&D. Venous stasis ulcers. Weaning dose antibiotic therapy 4. Diabetes mellitus type 2 for 5 years with history of neuropathy. 5. History of paroxysmal atrial fibrillation on anticoagulation. 6. History of stroke. 7. History of tobacco and alcohol use
--- NOTE | 2018-08-08 09:42 | CON.PCM_ITS ---
Consultation - Renal 08/08/18 PCP/ Referring MD: Requesting physician: [] Primary care physician: Hong Sparks Reason for Consultation:: GUALBERTO, anasarca - History of Present Illness History of Present Illness: The patient is a 63 year old M admitted on August 05 for anasarca, CHF and acute renal failure. His BUN was 119 creatinine 2.8 on admission improved to 1.64 creatinine. His urine output was reported to be poor at the long-term. Bustillo catheter was placed with good urinary output on Lasix drip. His anasarca and CHF, pleural effusion significantly improved with Lasix drip. He was found to be encephalopathic with confusion, hallucinations at [facility]. He was treated for osteomyelitis bilateral lower extremities at [facility] in [place]. His mentation is apparently better but remains a limited historian. He has been followed by the wound clinic for bilateral foot infections, venous stasis ulcers for the past month and a half. He underwent extensive I&D with fasciotomy of his right foot , ankle, lower leg. He is currently treated with iv antibiotics. Currently his legs are wrapped with decreased edema. He denied any history of sleep apnea. He denied using oxygen at home. He has been relatively debilitated at home prior to his leg wounds requiring a walker for ambulation assistance. He has a history of falls. He denies any chest pain with shortness of breath. Denies any nausea or vomiting. Past medical history is significant for diabetes mellitus type 2, neuropathy, hypertension, hyperlipidemia, paroxysmal atrial fibrillation with a history of stroke. He has had bilateral venous and arterial studies that were negative for DVT or PAD. He has a history of tobacco use and alcohol use. Quit about 2 months ago. He denies any history of kidney disease in the past. Baseline creatinine was 1.0 on June 09, 2018. Does not appear that he had any recent IV contrast studies [facility]. He did have a CT of the pelvis on June 13 that showed bilateral multiple renal cysts with the largest measuring 7.5 cm in the left kidney. Renal ultrasound pending from today. Echocardiogram from June 07, 2018 showed preserved LV function with EF of 50% however has biventricular dilatation with atrial dilation. He has moderate to severe RV function with severe pulmonary hypertension. She has severe mitral regurgitation and moderate tricuspid regurgitation. - Allergies Allergies: Allergies No Known Allergies Allergy (Verified 08/05/18 13:36) - Current Medications Current Medications: Current Medications Acetaminophen (Tylenol) 650 mg PO Q6H PRN PRN PRN Reason: PAIN Last Admin: 08/08/18 03:42 Dose: 650 mg Al Hydroxide/Mg Hydroxide (Mylanta Ii) 30 ml PO Q6H PRN PRN PRN Reason: Gastric burning Albuterol Sulfate (Ventolin Aerosols) 2.5 mg INHALATION Q2H PRN PRN PRN Reason: dyspnea, wheezing [facility] Last Admin: 08/08/18 08:56 Dose: 500 mg Aspirin (Ecotrin) 81 mg PO DAILY [facility] Last Admin: 08/08/18 08:56 Dose: 81 mg Atenolol (Tenormin (Beta Mikie)) 50 mg PO DAILY [facility] Last Admin: 08/08/18 08:58 Dose: 50 mg Atorvastatin Calcium (Lipitor) 10 mg PO QHS [facility] Last Admin: 08/07/18 22:34 Dose: 10 mg Cholecalciferol (Vitamin D) 1,000 unit PO DAILY [facility] Last Admin: 08/08/18 08:58 Dose: 1,000 unit Ferrous Sulf[facility] Sulfate) [facility] Last Admin: 08/08/18 08:55 Dose: 325 mg Furosemide 500 mg/ N/A 50 mls @ 1 mls/hr CONT INF .Q50H [facility] PRN Reason: 10 MG/HR Last Admin: 08/06/18 12:21 Dose: 1 mls/hr Ampicillin Sodium/Sulbactam (Sodium 3 gm/ Sodium Chloride) 112 mls @ 150 mls/ hr IV Q6 [facility] Last Admin: 08/08/18 05:09 Dose: 150 mls/hr Vancomycin IV Pharmacy to Dose (1 ea/ Sodium Chloride) 500 mls @ 250 mls/hr IV X1 PRN; Protocol PRN Reason: Rx to Dose Vancomycin HCl 1,500 mg/ (Sodium Chloride) 530 mls @ 250 mls/hr IV Q24H [facility] Insulin Human Lispro (Humalog Kwikpen (Bkc)) 0 unit SC ACHS [facility] PRN Reason: Protocol Last Admin: 08/08/18 08:15 Dose: Not Given Magnesium Hydroxide (Milk Of Magnesia) 30 ml PO DAILY PRN PRN Reason: Constipation Last Admin: 08/06/18 17:27 Dose: 30 ml Morphine Sulfate () 2 - 4 mg IV Q3H PRN PRN PRN Reason: Severe Pain (pain scale 6-10) Morphine Sulfate () 1 - 2 mg IV Q4H PRN PRN PRN Reason: Moderate Pain (pain scale 4-5) Multivitamins/Minerals ([facility]ivitamin With Minerals) [facility] Last Admin: 08/08/18 08:55 Dose: 1 tablet Nutritional Formula (Juan - Crenshaw Flavor) 1 packet PO BID [facility] Last Admin: 08/08/18 08:57 Dose: 1 packet Nutritional Formula (Lactose Free) (Glucerna Shake) 120 ml PO 4X/DAY [facility] Last Admin: 08/08/18 08:59 Dose: 120 ml Ondansetron HCl (Zofran) 4 mg IV Q8H PRN PRN PRN Reason: NAUSEA Paroxetine HCl (Paxil) 40 mg PO DAILY [facility] Last Admin: 08/08/18 08:57 Dose: 40 mg Promethazine HCl (Phenergan) 12.5 mg IV Q6H PRN PRN PRN Reason: NAUSEA/VOMITING Sodium Chloride () 5 - 30 ml IV UD PRN PRN Reason: SALINE FLUSH Last Admin: 08/06/18 06:16 Dose: 20 ml Sodium Hypochlorite (Dakins Solution 0.25% (1/2 Strength)) 1 applic TOPICAL BID [facility] PRN Reason: Protocol Last Admin: 08/07/18 22:32 Dose: 1 applicatio Tamsulosin HCl (Flomax) 0.4 mg PO DAILY@1730 [facility] Last Admin: 08/07/18 15:40 Dose: 0.4 mg Zinc Sulfate (Zinc Sulfate) 220 mg PO DAILY [facility] Last Admin: 08/08/18 08:59 Dose: 220 mg - Past Medical History Past Medical History (Chronic Problems): Chronic Problems 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 Anticipate Stage III or IV if excision done. Right ischial pressure sore, stage 2 (Chronic) at least a Stage II. Anticipate Stage III or IV if excision done. Pressure ulcer of sacral region, stage 2 (Chronic) at least a Stage II. Anticipate Stage III or IV if excision done. 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) Ulcer of right foot with necrosis of muscle (Chronic) Osteomyelitis (Chronic) Right foot infection (Chronic) Type 2 diabetes mellitus with diabetic polyneuropathy (Chronic) Localized edema (Chronic) Malnutrition (Chronic) Tobacco user (Chronic) HLD (hyperlipidemia) (Chronic) DM2 (diabetes mellitus, type 2) (Chronic) Depression (Chronic) Chronic low back pain (Chronic) Benign essential HTN (Chronic) - Past Surgical History Surgical History: tonsillectomy, - - Multiple wound debridements bilateral lower extremities. - Social History Marital Status: - Lives with currently at [facility] for debilitation Smoking Status: Former smoker Alcohol: Sober Drugs: None - Family History Paternal History Items: Heart Disease - His father had atrial fibrillation and an AICD/ pacemaker Maternal History Items: Diabetes - His mother had severe diabetes mellitus and had amputations of her lower extremities. Review of Systems Constitutional: Reports: Malaise, Weakness, Fatigue. Denies: Anorexia, Chills, Fever Eyes: Denies: Blurred vision Cardiovascular: Reports: Edema. Denies: Chest Pain, Syncope Respiratory: Reports: Shortness of Breath, Wheezing. Denies: Cough Gastrointestinal: Denies: Abdominal Pain, Constipation, Diarrhea, Nausea, Vomiting Genitourinary: Reports: Retention, - - Reported decreased urine output long-term. Denies: Dysuria Musculoskeletal: Reports: - - Leg edema Skin: Reports: Wounds - Bilateral lower extremities status post I&D right foot Neurological: Reports: Balance problems, - - Generalized weakness, debilitation. Denies: Tremor, Seizures Hematologic/ Lymphatic: Reports: Hx of blood clot - DVT RLE - Physical Exam General: Alert, Oriented x3, Cooperative, No apparent distress, - - Poor historian HEENT: PERRLA, EOMI, - - Rosacea Oral: Dry Mucosa Neck: Supple Lungs: Rales, Wheezes Cardiovascular: Regular rate, Murmur - Holosystolic at apex Abdomen: Bowel Sounds Present, Soft, Non Tender, Non-Distended, Obese Extremities: Edema - Anasarca to the chest wall Skin: Ulcer/ Wound - Bilateral lower extremities, legs wrapped Musculoskeletal: Muscle Wasting, - - Arms and legs wrapped Lymphatic: No Cervical, Supraclavicular, or Inguinal Adenopathy Neurological: - - Generalized weakness Psych/Mental Status: Normal Affect, Appropriate, - - Slow to respond, occasional somnolence during history taking Vital Signs Temp Pulse Resp BP Pulse Ox 96.5 F L 78 18 100/72 94 08/08/18 09:00 08/08/18 09:00 08/08/18 09:02 08/08/18 09:00 08/08/18 07:04 Oxygen Flow Rate (L/min) 4 Oxygen Delivery Method Nasal Cannula Weight: 109.8 kg Body Mass Index (BMI) 32.0 Intake and Output for Last 24 Hours 08/06/18 08/07/18 08/08/18 23:59 23:59 23:59 Intake Total 1481.8 / 1481.8 2935.6 / 2935.6 648.5 / 648.5 Output Total 3525 / 3525 6325 / 6325 1775 / 1775 Balance -2043.2 / -2043.2 -3389.4 / -3389.4 -1126.5 / -1126.5 Microbiology Past 72 Hours 08/05/18 18:15 Blood Culture - Preliminary Blood Culture (Wb) - No Site/Description Given No growth in 48 hours. 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 Laboratory Tests Past 24 Hrs 08/08/18 08/08/18 08/08/18 05:09 05:09 05:09 WBC 4.7 RBC 3.55 L Hgb 9.4 L Hct 32.7 L MCV 92.1 MCH 26.5 L MCHC 28.7 L RDW 17.3 H RDW Differential 58.9 H Plt Count 65 L MPV 11.6 Differential Comment SCAN PT 21.2 H INR 1.8 Sodium 144 Potassium 3.0 L Chloride 99 Carbon Dioxide 35.0 H BUN 88 H Creatinine 1.64 H Estim Creat Clear Calc 52.91 Est GFR (MDRD) Af Amer 55 L Est GFR (MDRD) Non-Af 45 L BUN/Creatinine Ratio 53.7 H Glucose 144 H Calcium 8.0 L Phosphorus 3.2 Magnesium 2.2 Albumin 2.5 L POC Glucose 08/08/18 08/07/18 08/07/18 06:50 22:28 15:45 POC Glucose 137 H 183 H 133 H 08/07/18 11:12 POC Glucose 143 H Assessment/Plan All Active Problems Vasculitis (Acute) Abscess of right leg (Acute) Abscess of right foot (Acute) Gangrene (Acute) Severe sepsis (Acute) 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 GUALBERTO with creatinine improved from 2.8 to 1.64 today with bustillo insertion. May have had urinary retention. No kidney ultrasound on admission. Will check renal ultrasound today. CT abdomen pelvis on June 13 revealed bilateral multiple renal cysts with the largest measuring 7.5 cm on left kidney. Baseline creatinine 1.03 on 06/09/18. Urinalysis without proteinuria or microscopic hematuria therefore goes against diabetic nephropathy. No recent IV contrast exposure that I could see during last hospitalization. Recently hospitalized in LTAC with subsequent transferred to [facility]. 2. Anasarca likely due to fluid retention, pulmonary hypertension, valvular disease, biventricular dilation. Continue with diuretic therapy with Lasix drip. 3. Osteomyelitis of right foot, bilateral lower extremity wounds managed by wound care center on IV antibiotic therapy. Recent hospitalization for I&D. Venous stasis ulcers. Weaning dose antibiotic therapy 4. Diabetes mellitus type 2 for 5 years with history of neuropathy. 5. History of paroxysmal atrial fibrillation on anticoagulation. 6. History of stroke. 7. History of tobacco and alcohol use
[2018-08-08] MEDS: Furosemide 500 MG in Empty Viaflex 50 mL 1 EACH CONT INF (09:51)
[2018-08-08 09:56] LABS: Vitamin B12 1387 pg/mL (211-911)
--- NOTE | 2018-08-08 10:02 | NURSING ---
primary RN aware of VSA
--- NOTE | 2018-08-08 10:12 | CASEMGMT ---
YUMIKO faxed updates to [facility]. YUMIKO also called Angelica and asked her to start the pre-cert process. Janice SOLANO MSW
--- NOTE | 2018-08-08 12:28 | NURSING ---
wound photo: left anterior lower leg
--- NOTE | 2018-08-08 12:29 | NURSING ---
wound photo: left posterior lower leg
--- NOTE | 2018-08-08 12:30 | NURSING ---
wound photo: right knee
--- NOTE | 2018-08-08 12:30 | NURSING ---
wound photo: right anterior lower leg
--- NOTE | 2018-08-08 12:31 | NURSING ---
wound photo: right foot
--- NOTE | 2018-08-08 12:32 | NURSING ---
wound photo: right medial foot
--- NOTE | 2018-08-08 12:33 | NURSING ---
wound photo: right medial lower leg
--- NOTE | 2018-08-08 12:33 | NURSING ---
wound photo: right lateral lower leg
[2018-08-08 12:35] LABS: Bedside Glucose 121 mg/dL (70-110)
--- NOTE | 2018-08-08 12:39 | CON.PCM_ITS ---
Problem List (1) Ulcer of right lower extremity with fat layer exposed Status: Acute Reason for Consult: foot infection Consulted by: Dr. Solorzano History of Present Illness: The patient is a 63 year old M with recent admit in May for R foot and lower leg gangrene with pasteurella bacteremia - taken to OR 06/[address] Gruber. Wound cxs with MSSA, strep, proteus, pasteurella, anaerobes. Discharged on unasyn via picc with stop date 07/22/18. Had done well with abx, foot improved. reports 1-2 weeks of progressive confusion, malaise, SOB, and low BP at [facility]. Found to have GUALBERTO, sent to ED. Started on vanc and unasyn. R foot much improved from previous. Neph following, cr improving. No fever here, normal wbc. Cx of R foot wound sent. Also with some L hand redness but no pain that started this AM. Full ROS performed and neg except as noted above. 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 Anticipate Stage III or IV if excision done. Right ischial pressure sore, stage 2 (Chronic) at least a Stage II. Anticipate Stage III or IV if excision done. Pressure ulcer of sacral region, stage 2 (Chronic) at least a Stage II. Anticipate Stage III or IV if excision done. 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) Ulcer of right foot with necrosis of muscle (Chronic) Osteomyelitis (Chronic) Right foot infection (Chronic) Type 2 diabetes mellitus with diabetic polyneuropathy (Chronic) Localized edema (Chronic) Malnutrition (Chronic) Tobacco user (Chronic) HLD (hyperlipidemia) (Chronic) DM2 (diabetes mellitus, type 2) (Chronic) Depression (Chronic) Chronic low back pain (Chronic) Benign essential HTN (Chronic) Allergies/Adverse Reactions: Allergies No Known Allergies Allergy (Verified 08/05/18 13:36) Home Medications: Ambulatory Orders Medication Instructions Recorded Aspirin [Adult Aspirin] 81 mg PO DAILY 06/07/18 Atenolol 50 mg PO BID 06/07/18 Cholecalciferol (VIT D3) [Vitamin 1,000 unit PO DAILY 06/07/18 D3] Acetaminophen [Tylenol Tablet] 650 mg PO Q6H PRN PRN tablet 06/14/18 Ascorbic Acid [Vitamin C] 500 mg PO BIDCM tablet 06/14/18 Tamsulosin HCl [Flomax] 0.4 mg PO DAILY@1730 capsule 06/14/18 Zinc Sulfate (50mg elemental) 220 mg PO DAILY capsule 06/14/18 [Zinc Sulfate] Argin/Glut/Cahmb/Collag/Mv-Min 1 each PO BID 08/05/18 [Juan Packet] Atorvastatin Calcium [Lipitor] 10 mg PO QHS 08/05/18 Diltiazem CD [Cardizem CD] 120 mg PO DAILY 08/05/18 Famotidine 20 mg PO DAILY 08/05/18 Furosemide [Lasix] 20 mg PO DAILY 08/05/18 Insulin Lispro [Humalog] See Protocol SQ 4X/DAY 08/05/18 Multivitamins,Ther W-Minerals 1 tablet PO DAILY 08/05/18 [Multivitamin With Minerals] Paroxetine HCl [Paxil] 40 mg PO DAILY 08/05/18 Warfarin [Coumadin (PBKC)] 6 mg PO DAILY 08/05/18 glipiZIDE [Glucotrol] 10 mg PO DAILY@0730 08/05/18 - Social History SMOKING STATUS:: Current every day smoker Vital Signs Temp Pulse Resp BP Pulse Ox 96.5 F L 83 14 108/71 99 08/08/18 11:00 08/08/18 11:02 08/08/18 11:00 08/08/18 11:00 08/08/18 11:00 Oxygen Flow Rate (L/min) 4 Oxygen Delivery Method Nasal Cannula Weight: 109.8 kg Body Mass Index (BMI) 32.0 Microbiology Past 72 Hours 08/05/18 16:11 Urine Culture - Final Urine, Catheterized Culture exhibits no growth. 08/05/18 18:15 Blood Culture - Preliminary Blood Culture (Wb) - No Site/Description Given No growth in 48 hours. 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 Laboratory Tests Past 24 Hrs 08/05/18 08/08/18 08/08/18 23:30 05:09 05:09 WBC RBC Hgb Hct MCV MCH MCHC RDW RDW Differential Plt Count MPV Differential Comment PT 21.2 H INR 1.8 Sodium 144 Potassium 3.0 L Chloride 99 Carbon Dioxide 35.0 H BUN 88 H Creatinine 1.64 H Estim Creat Clear Calc 52.91 Est GFR (MDRD) Af Amer 55 L Est GFR (MDRD) Non-Af 45 L BUN/Creatinine Ratio 53.7 H Glucose 144 H Calcium 8.0 L Phosphorus 3.2 Magnesium 2.2 Albumin 2.5 L Vitamin B12 1387 H 08/08/18 05:09 WBC 4.7 RBC 3.55 L Hgb 9.4 L Hct 32.7 L MCV 92.1 MCH 26.5 L MCHC 28.7 L RDW 17.3 H RDW Differential 58.9 H Plt Count 65 L MPV 11.6 Differential Comment SCAN PT INR Sodium Potassium Chloride Carbon Dioxide BUN Creatinine Estim Creat Clear Calc Est GFR (MDRD) Af Amer Est GFR (MDRD) Non-Af BUN/Creatinine Ratio Glucose Calcium Phosphorus Magnesium Albumin Vitamin B12 - Other Studies Radiology: [] reviewed Other Studies: [] Route of nutrition/ use of supplements: [] Nutritional Intake: [] IV Site: [] Aponte Catheter: [] - Physical Exam General: Alert, Cooperative, No apparent distress HEENT: Atraumatic, PERRLA, EOMI Neck: Supple, No Nodes Lungs: Clear to auscultation, Normal air movement Cardiovascular: Regular rate, Regular Rhythm Abdomen: Soft, Non Tender, Non-Distended Extremities: Edema - mild BLE Skin: Ulcer/ Wound - Reviewed photos of BLE. Some shallow skin tears on LUE. IV Site: Peripheral, without redness Musculoskeletal: No Tenderness to Palpation of Joints or Extremities Neurological: Cranial nerves II-XII grossly intact - Assessment/Plan Antibiotics: [] Assessment/Plan: [] Recent RLE gangrene with pasteurella bacteremia - overall RLE much improved. No fever or leukocytosis here. Did have wound cx done which is showing GNR x2, including possible PsA. GUALBERTO is improving and may have explained most of his sx on presentation. Cont vanc/unasyn for now. He may just need a short course of abx; not clear if there is a new infection present. Would consider repeat MRI of foot to look for osteo/abscess if condition worsens. Will follow, thank you, d/w Dr. Dotson.
--- NOTE | 2018-08-08 13:02 | PN_ITS ---
<Huyen Crandall - Last Filed: 08/08/18 13:02> Subjective: No acute events overnight. Patient notes continued improvement in shortness of breath and swelling. Denies other current complaints. - Physical Exam General: Alert, Oriented x3, Cooperative, No apparent distress HEENT: Atraumatic, PERRLA, EOMI, Normocephalic Neck: Supple, No JVD, Negative Carotid Bruits Lungs: Clear to auscultation, Diminished Cardiovascular: - - Atrial fibrillation, rate controlled. Abdomen: Bowel Sounds Present, Soft, Non Tender, Non-Distended, Obese Extremities: No clubbing, No cyanosis, Edema - Abdominal, bilateral upper thigh +2 Skin: - - Extensive bilateral lower extremity wounds, right greater than left. Bilateral upper extremity scabbing secondary to picking. Musculoskeletal: No Tenderness to Palpation of Joints or Extremities Neurological: Cranial nerves II-XII grossly intact, Neuro grossly intact Psych/Mental Status: Normal Affect, Appropriate Vital Signs Temp Pulse Resp BP Pulse Ox 96.5 F L 83 14 108/71 99 08/08/18 11:00 08/08/18 11:02 08/08/18 11:00 08/08/18 11:00 08/08/18 11:00 Oxygen Flow Rate (L/min) 4 Oxygen Delivery Method Nasal Cannula Weight: 242 lb 1.081 oz Body Mass Index (BMI) 32.0 Intake and Output for Last 24 Hours 08/06/18 08/07/18 08/08/18 23:59 23:59 23:59 Intake Total 1481.8 / 1481.8 2935.6 / 2935.6 1218.5 / 1218.5 Output Total 3525 / 3525 6325 / 6325 3950 / 3950 Balance -2043.2 / -2043.2 -3389.4 / -3389.4 -2731.5 / -2731.5 Microbiology Past 72 Hours 08/05/18 16:11 Urine Culture - Final Urine, Catheterized Culture exhibits no growth. 08/05/18 18:15 Blood Culture - Preliminary Blood Culture (Wb) - No Site/Description Given No growth in 48 hours. 08/06/18 12:09 Gram Stain - Final Wound - Right Foot Wound Culture - Preliminary GNR Poss Pseudomonas sp GNR lactose property custodian Laboratory Tests Past 24 Hrs 0908/08/18 08/08/18 23:30 05:09 05:09 WBC RBC Hgb Hct MCV MCH MCHC RDW RDW Differential Plt Count MPV Differential Comment PT 21.2 H INR 1.8 Sodium 144 Potassium 3.0 L Chloride 99 Carbon Dioxide 35.0 H BUN 88 H Creatinine 1.64 H Estim Creat Clear Calc 52.91 Est GFR (MDRD) Af Amer 55 L Est GFR (MDRD) Non-Af 45 L BUN/Creatinine Ratio 53.7 H Glucose 144 H Calcium 8.0 L Phosphorus 3.2 Magnesium 2.2 Albumin 2.5 L Vitamin B12 1387 H 08/08/18 05:09 WBC 4.7 RBC 3.55 L Hgb 9.4 L Hct 32.7 L MCV 92.1 MCH 26.5 L MCHC 28.7 L RDW 17.3 H RDW Differential 58.9 H Plt Count 65 L MPV 11.6 Differential Comment SCAN PT INR Sodium Potassium Chloride Carbon Dioxide BUN Creatinine Estim Creat Clear Calc Est GFR (MDRD) Af Amer Est GFR (MDRD) Non-Af BUN/Creatinine Ratio Glucose Calcium Phosphorus Magnesium Albumin Vitamin B12 POC Glucose 08/08/18 08/08/18 08/07/18 11:58 06:50 22:28 POC Glucose 121 H 137 H 183 H 08/07/18 15:45 POC Glucose 133 H Medical Necessity - Tobacco Use Smoking Status: Former smoker Tobacco Use: Cigarettes Assessment/Plan All Active Problems Vasculitis (Acute) Abscess of right leg (Acute) Abscess of right foot (Acute) Gangrene (Acute) Severe sepsis (Acute) 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 Acute on chronic systolic CHF with anasarca-chest x-ray on admission shows bilateral pleural effusions. Aponte placed in ER for strict I's and O's. Daily weight. Echocardiogram May 2018 showed an EF of 50%, moderately severe mitral valve insufficiency, moderate tricuspid valve insufficiency, RVSP estimated to be 67 mmHg, severe pulmonary hypertension. Cardiology consulted. Continue Lasix drip. Continue beta-dilia. Cardizem discontinued. Continues to have significant urine output. Repeat CXR this morning showed decreased interstitial edema, bibasilar consolidation and effusions. 2. Acute encephalopathy-unclear etiology. Resolved. Urine and blood cultures negative. Blood gas and ammonia within normal limits. 3. Acute kidney injury on chronic kidney disease stage III-suspect secondary to urinary retention. Aponte placed in ER. Creatinine improving. Trend BMP. Nephrology following. US kidney and bladder pending. 4. Paroxysmal atrial fibrillation with supratherapeutic INR-continue atenolol. Resume Coumadin. Coumadin initially held on admission due to supratherapeutic INR. 5. Chronic extensive wounds including bilateral lower extremities, right greater than left, ischial and sacral-frequent position changes. Wound nurse consult. Consult Dr. Gruber. Wounds present on admission. History of multiple organisms and wound cultures. History of osteomyelitis. Wound culture pending right foot showing Pseudomonas. Continue IV unasyn and IV vanc. MRSA PCR +. ID consulted. Recommend outpatient follow up with vascular surgery for suspected chronic vascular disease. Dressing changes as ordered: wet to dry dakin's with gauze, kerlix, abd pads and gregory BLLE. Change BID. 6. Hypertension-Cardizem discontinued. Continue atenolol. 7. Hyperlipidemia-continue statin. 8. Type 2 diabetes mellitus-hold oral regimen. Accu-Cheks before meals at bedtime with sliding scale insulin. Hemoglobin A1c 6%. 9. Chronic iron deficiency anemia/anemia of chronic disease-stable, trend CBC. 10. History of CVA with mild left hemiparesis-continue aspirin, statin. PT/OT. 11. Debility/weakness-resides at SNF. Reported to use Swapnil lift. Unable to ambulate. PT/OT. 12. Depression-continue home paroxetine regimen. 13. Protein calorie malnutrition-nutrition consult. 14. Obesity-nutrition consult for dietary recommendations. DVT prophylaxis-Coumadin. This patient was seen by NADINE Chow under the supervision of Dr. Solorzano. <Wilner Solorzano - Last Filed: 08/08/18 17:33> - Physical Exam General: Alert, No apparent distress, - - dozes off. HEENT: Atraumatic, Normocephalic Oral: Moist Mucosa Neck: No Nodes, Thyroid Normal Size and Texture Lungs: Clear to auscultation, Diminished Cardiovascular: Normal S1, Normal S2, - Abdomen: Bowel Sounds Present, Soft, Non Tender, Non-Distended Extremities: No clubbing, No cyanosis Skin: No breakdown, - Vital Signs Temp Pulse Resp BP Pulse Ox 36.7 C 74 18 103/66 99 08/08/18 16:17 08/08/18 16:17 08/08/18 16:17 08/08/18 16:17 08/08/18 16:17 Oxygen Flow Rate (L/min) 2 Oxygen Delivery Method Nasal Cannula Weight: 109.8 kg Body Mass Index (BMI) 32.0 Intake and Output for Last 24 Hours 08/06/18 08/07/18 08/08/18 23:59 23:59 23:59 Intake Total 1481.8 / 1481.8 2935.6 / 2935.6 1218.5 / 1218.5 Output Total 3525 / 3525 6325 / 6325 3950 / 3950 Balance -2043.2 / -2043.2 -3389.4 / -3389.4 -2731.5 / -2731.5 Microbiology Past 72 Hours 08/06/18 12:09 Gram Stain - Final Wound - Right Foot Wound Culture - Preliminary GNR Poss Pseudomonas sp GNR lactose property custodian Anaerobic Culture - Preliminary Checking for anaerobes, further studies to follow. 08/05/18 16:11 Urine Culture - Final Urine, Catheterized Culture exhibits no growth. 08/05/18 18:15 Blood Culture - Preliminary Blood Culture (Wb) - No Site/Description Given No growth in 48 hours. Laboratory Tests Past 24 Hrs 08/05/18 08/08/18 08/08/18 23:30 05:09 05:09 WBC RBC Hgb Hct MCV MCH MCHC RDW RDW Differential Plt Count MPV Differential Comment PT 21.2 H INR 1.8 Specimen Type Sample Site pH Bicarbonate Actual POC Total CO2 Base Excess O2 Saturation ABG pCO2 ABG pO2 Derek Test O2 Delivery Device Liter Flow Blood Gas Notified Whom Blood Gas Notified Time Sodium 144 Potassium 3.0 L Chloride 99 Carbon Dioxide 35.0 H BUN 88 H Creatinine 1.64 H Estim Creat Clear Calc 52.91 Est GFR (MDRD) Af Amer 55 L Est GFR (MDRD) Non-Af 45 L BUN/Creatinine Ratio 53.7 H Glucose 144 H Calcium 8.0 L Phosphorus 3.2 Magnesium 2.2 Albumin 2.5 L Vitamin B12 1387 H 08/08/18 08/08/18 05:09 16:08 WBC 4.7 RBC 3.55 L Hgb 9.4 L Hct 32.7 L MCV 92.1 MCH 26.5 L MCHC 28.7 L RDW 17.3 H RDW Differential 58.9 H Plt Count 65 L MPV 11.6 Differential Comment SCAN PT INR Specimen Type ART Sample Site L Radial pH 7.61 H* Bicarbonate Actual 38.2 H POC Total CO2 39 Base Excess 17 H O2 Saturation 100 H ABG pCO2 38.0 ABG pO2 151 H Derek Test POS O2 Delivery Device Nasal Can Liter Flow 3.0 Blood Gas Notified Whom HOSP Blood Gas Notified Time 350 Sodium Potassium Chloride Carbon Dioxide BUN Creatinine Estim Creat Clear Calc Est GFR (MDRD) Af Amer Est GFR (MDRD) Non-Af BUN/Creatinine Ratio Glucose Calcium Phosphorus Magnesium Albumin Vitamin B12 POC Glucose 08/08/18 08/08/18 08/08/18 16:10 11:58 06:50 POC Glucose 180 H 121 H 137 H 08/07/18 22:28 POC Glucose 183 H Assessment/Plan Patient seen and examined independently. Data reviewed. I agree with the above note by the nurse practitioner. 1. Acute CHF exacerbation: Continue with the Lasix drip. Cardiology consultation. 2. Encephalopathy: Unclear etiology ABG consistent with metabolic alkalosis with respiratory alkalosis. No carbon dioxide narcosis, however. Review of the medications did not reveal any sedating medications. As needed morphine was ordered but never received. Unclear etiology but would recommend outpatient evaluation for geriatrics. Patient's states that this is never happened to the patient before. Patient will require outpatient 3. Lower extremity wounds: Pseudomonas and other gram-negative krystin. Continue his Zosyn for now until final culture results are back. 4. Possible sleep apnea: Was sent to his facility from another hospital with what sounds like a BiPAP but the patient has not been compliant with using it. Sleep evaluation. Check a nocturnal pulse ox. Code Visit Inpatient E&M: 32793 Subs Hosp L3
--- NOTE | 2018-08-08 14:51 | PN.CARD_ITS ---
Subjectve: Patient seen and evaluated. No complaints at this time. Objective: Vital Signs Temp Pulse Resp BP Pulse Ox 96.5 F L 83 18 108/71 99 08/08/18 11:00 08/08/18 11:02 08/08/18 14:27 08/08/18 11:00 08/08/18 11:00 Oxygen Flow Rate (L/min) 4.5 Oxygen Delivery Method Nasal Cannula Weight: 242 lb 1.081 oz Body Mass Index (BMI) 32.0 Intake and Output for Last 24 Hours 08/06/18 08/07/18 08/08/18 23:59 23:59 23:59 Intake Total 1481.8 / 1481.8 2935.6 / 2935.6 1218.5 / 1218.5 Output Total 3525 / 3525 6325 / 6325 3950 / 3950 Balance -2043.2 / -2043.2 -3389.4 / -3389.4 -2731.5 / -2731.5 General: Awake, Alert, Oriented x 3, Ill Appearing HEENT: PERRL, EOMI, Sclera Non Icteric Neck: Supple, Good ROM, No Lymph Node Enlargement Lungs: Clear to auscultation Cardiovascular: Regular Rhythm, Normal S1, Normal S2, No Murmurs, No Rubs, No Gallops Vascular: No Carotid Bruits, Normal Femoral Pulses, Normal Radial Pulses, Normal Dorsalis Pedal Pulse, Normal Posterior Tibial Pulses Abdomen: Bowel Sounds Present, Soft, Non Tender, No HSM, No Organomegaly Extremities: No Cyanosis, No Clubbing, No edema Neurological: No Focal Motor or Sensory Deficit 08/08/18 05:09: PT 21.2 H, INR 1.8 08/08/18 05:09: Sodium 144, Potassium 3.0 L, Chloride 99, Carbon Dioxide 35.0 H , BUN 88 H, Creatinine 1.64 H, Est GFR (MDRD) Af Amer 55 L, Est GFR (MDRD) Non- Af 45 L, BUN/Creatinine Ratio 53.7 H, Glucose 144 H, Calcium 8.0 L, Phosphorus 3.2, Magnesium 2.2 08/08/18 05:09: WBC 4.7, RBC 3.55 L, Hgb 9.4 L, Hct 32.7 L, MCV 92.1, MCH 26.5 L , MCHC 28.7 L, RDW 17.3 H, RDW Differential 58.9 H, Plt Count 65 L, MPV 11.6 Rhythm: EKG: ECHO: Stress Test: Cardiac Cath: PCI: CT Surgery: Holter monitor: EPS: PPM: CXR: Chest CT Scan: Medical Necessity - Tobacco Use Smoking Status: Former smoker Tobacco Use: Cigarettes Assessment/Plan 1. Shortness of breath-congestive heart failure chronic systolic * He presents with shortness of breath and evidence of orthopnea. He does have minimal pedal edema. His previous echocardiogram however demonstrated left ventricular systolic dysfunction with significant valvular abnormalities. I suspect this is the etiology of his heart failure which has been worsened by his worsening renal function. His BUN remained stable as well as his creatinine which appears to be declining. An occult GI bleed needs to be excluded due to the markedly elevated BUN and his elevated INR. * My recommendation at this time will be to continue him on intravenous Lasix for at least 1 more day * Continue beta-dilia with atenolol twice a day * Discontinue his Cardizem * Further recommendations will be made based on his response to the above. * Chest x-ray demonstrates improvement in his pleural effusions. 2. Valvular heart disease * He does have evidence of valvular heart disease with moderately severe mitral regurgitation and elevated pulmonary to systolic pressure. He also has biatrial enlargement. At this time recommendation will be to treat this with aggressive diuretic therapy. * In light of his worsening renal function I would not suggest the addition of an MARIO inhibitor. * 3. Hypertension * His blood pressure appears to be under fair control on the current medical therapy. Indeed it is actually low and I would recommend that we discontinue his diltiazem at this time and continue him on the beta-dilia. * I would also recommend reducing the dose of his atenolol. Hopefully this would improve his perfusion pressure. * No particular changes will be made at this time we will reevaluate him in a.m. Overall he appears to be doing better. * * Thank you for allowing me to participate in the care of your patient. Please don't hesitate to call if any issues arise
[2018-08-08 16:10] LABS: Allen Test POS; Base Excess 17 mmol/L (-2 to +2); Bicarbonate 38.2 mmol/L (22-26); Blood Gas Specimen Type ART; O2 Delivery Device Nasal Can; PO2 151 mmHG (75-100); SITE L Radial; SO2 100 % (95-99); Time Given 350; Total Carbon Dioxide 39 mmol/L; pH 7.61 (7.35-7.45)
[2018-08-08 16:25] LABS: Bedside Glucose 180 mg/dL (70-110)
[2018-08-08] MEDS: Insulin Lispro 100 UNIT/ML INSULN.PEN SC ×2 (17:30→23:02)
[2018-08-08] MEDS: Tamsulosin HCl 0.4 MG Capsule PO (17:31)
[2018-08-08] MEDS: 0.9% NaCl Peripheral Flush Adult/Peds IV (17:34)
[2018-08-08] MEDS: Magnesium Hydroxide 30 ML UDC PO (17:36)
--- NOTE | 2018-08-08 18:14 | PCM.PROGNOTE ---
Subjective: Patient seen today for follow up bilateral lower extremity ulcerations. He relates he is doing better today. He has no new complaints. He was resting in bed with at bedside. No complaints of fever, chills, nausea or vomiting. - Physical Exam General: Alert, Oriented x3, Cooperative, No apparent distress Extremities: Capillary Refill Less than 3 Seconds, - - Right 3rd and 4th toes absent from previous amputation. Multiple ulcerations to the right and left legs down to the subcutaneous tissue and muscle layers, there is no exposed or probing to bone or joint, tissue is mixture of granular with some fibrotic tissue - improving. There is no visible abscess, no cellulitis, no fluctuance, no crepitus, no streaking to bilateral foot/ankle, maloder has resolved. There is no evidence of acute ischemia to the lower extremity bilateral. Musculoskeletal: No Tenderness to Palpation of Joints or Extremities Vital Signs Temp Pulse Resp BP Pulse Ox 98.0 F 74 18 103/66 99 08/08/18 16:17 08/08/18 16:17 08/08/18 16:17 08/08/18 16:17 08/08/18 16:17 Oxygen Flow Rate (L/min) 2 Oxygen Delivery Method Nasal Cannula Weight: 109.8 kg Body Mass Index (BMI) 32.0 Intake and Output for Last 24 Hours 08/06/18 08/07/18 08/08/18 23:59 23:59 23:59 Intake Total 1481.8 / 1481.8 2935.6 / 2935.6 2162.5 / 2162.5 Output Total 3525 / 3525 6325 / 6325 5950 / 5950 Balance -2043.2 / -2043.2 -3389.4 / -3389.4 -3787.5 / -3787.5 Microbiology Past 72 Hours 08/06/18 12:09 Gram Stain - Final Wound - Right Foot Wound Culture - Preliminary GNR Poss Pseudomonas sp GNR lactose senior advisor Anaerobic Culture - Preliminary Checking for anaerobes, further studies to follow. 08/05/18 16:11 Urine Culture - Final Urine, Catheterized Culture exhibits no growth. 08/05/18 18:15 Blood Culture - Preliminary Blood Culture (Wb) - No Site/Description Given No growth in 48 hours. Laboratory Tests Past 24 Hrs 08/05/18 08/08/18 08/08/18 23:30 05:09 05:09 WBC RBC Hgb Hct MCV MCH MCHC RDW RDW Differential Plt Count MPV Differential Comment PT 21.2 H INR 1.8 Specimen Type Sample Site pH Bicarbonate Actual POC Total CO2 Base Excess O2 Saturation ABG pCO2 ABG pO2 Derek Test O2 Delivery Device Liter Flow Blood Gas Notified Whom Blood Gas Notified Time Sodium 144 Potassium 3.0 L Chloride 99 Carbon Dioxide 35.0 H BUN 88 H Creatinine 1.64 H Estim Creat Clear Calc 52.91 Est GFR (MDRD) Af Amer 55 L Est GFR (MDRD) Non-Af 45 L BUN/Creatinine Ratio 53.7 H Glucose 144 H Calcium 8.0 L Phosphorus 3.2 Magnesium 2.2 Albumin 2.5 L Vitamin B12 1387 H 08/08/18 08/08/18 05:09 16:08 WBC 4.7 RBC 3.55 L Hgb 9.4 L Hct 32.7 L MCV 92.1 MCH 26.5 L MCHC 28.7 L RDW 17.3 H RDW Differential 58.9 H Plt Count 65 L MPV 11.6 Differential Comment SCAN PT INR Specimen Type ART Sample Site L Radial pH 7.61 H* Bicarbonate Actual 38.2 H POC Total CO2 39 Base Excess 17 H O2 Saturation 100 H ABG pCO2 38.0 ABG pO2 151 H Derek Test POS O2 Delivery Device Nasal Can Liter Flow 3.0 Blood Gas Notified Whom [facility] Blood Gas Notified Time 350 Sodium Potassium Chloride Carbon Dioxide BUN Creatinine Estim Creat Clear Calc Est GFR (MDRD) Af Amer Est GFR (MDRD) Non-Af BUN/Creatinine Ratio Glucose Calcium Phosphorus Magnesium Albumin Vitamin B12 POC Glucose 08/08/18 08/08/18 08/08/18 16:10 11:58 06:50 POC Glucose 180 H 121 H 137 H 08/07/18 22:28 POC Glucose 183 H Medical Necessity - Tobacco Use Smoking Status: Former smoker Tobacco Use: Cigarettes Assessment/Plan All Active Problems Vasculitis (Acute) Abscess of right leg (Acute) Abscess of right foot (Acute) Gangrene (Acute) Severe sepsis (Acute) 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) Abscess of left leg (Acute) Ulcer of right lower extremity with fat layer exposed (Acute) Ulcer of left lower extremity with fat layer exposed (Acute) Ulcerations right and left lower extremity down to subcutaneous tissue and muscle layers Hx of necrotizing fasciitis s/p toe amputation and fasciotomies Diabetes with neuropathy Suspected peripheral vascular disease (no evidence of acute ischemia) bilateral lower extremity Reviewed cultures, patient on antibiotics per ID service, will likely need short term course of the antibiotics from foot/ankle/leg standpoint. Reviewed noninvasive lower extremity arterial studies - no evidence of significant arterial occlusion, however increased ABIs suggest arterial calcification - it is recommended patient does follow up with vascular surgery due to suspected chronic lower extremity vascular disease. Wound care: Continue with wet to dry Dakin's (1/4 strength) with overlying dry gauze, kerlix, abd pads and gregory dressings bilateral lower extremity wounds - change BID. Keep offloaded at all times. Podiatry will continue to follow.
[2018-08-08] MEDS: Atorvastatin Calcium 10 MG Tablet PO (22:58)
[2018-08-08] MEDS: Piperacil/Tazobactam 3.375 GM/50 ML ML IV (23:04)
[2018-08-08 23:11] LABS: Bedside Glucose 155 mg/dL (70-110)
[2018-08-09] VITALS (13 sets, daily range): BP systolic 107–121; BP diastolic 59–78; PULSE 80–108; RESP 12–17; TEMP 36.6–36.9; O2SAT 91–99
[2018-08-09 05:19] LABS: Albumin, Serum 2.5 g/dL (3.2-5.0); BUN 73 mg/dL (7-18); BUN/Creat Ratio 51.8 RATIO (10-20); Calcium,Total 8.3 mg/dL (8.5-10.1); Chloride 97 mmol/L (98-107); Creatinine, Serum 1.41 mg/dL (0.70-1.30); EST Glomerular Filtration Rate 54 mL/min (>60); Est Glom Filt Rate - Afr Amer 65 mL/min (>60); Estimated Creatinine Clearance 61.54 ml/min; Glucose 149 mg/dL (74-106); Potassium 3.2 mmol/L (3.5-5.1); Sodium Level 145 mmol/L (136-145)
[2018-08-09] MEDS: Piperacil/Tazobactam 3.375 GM/50 ML ML IV (05:38)
[2018-08-09] MEDS: 0.9% NaCl Peripheral Flush Adult/Peds IV (05:39)
[2018-08-09 07:16] LABS: Bedside Glucose 76 mg/dL (70-110)
[2018-08-09] MEDS: Atenolol 50 MG Tablet PO (08:52)
[2018-08-09] MEDS: Multivitamins,Ther W-Minerals Tablet 1 TABLET PO (08:52)
[2018-08-09] MEDS: Ascorbic Acid 500 MG Tablet PO ×2 (08:52→16:42)
[2018-08-09] MEDS: Ferrous Sulfate 325 MG Tablet PO ×2 (08:52→16:42)
[2018-08-09] MEDS: Aspirin E.C. 81 MG Tablet PO (08:52)
[2018-08-09] MEDS: Furosemide 500 MG in Empty Viaflex 50 mL 1 EACH CONT INF (11:10)
[2018-08-09] MEDS: levoFLOXacin 750 MG Tablet PO (11:10)
[2018-08-09] MEDS: Insulin Lispro 100 UNIT/ML INSULN.PEN SC ×2 (11:11→21:15)
--- NOTE | 2018-08-09 11:13 | PCM.PN.ID ---
Subjective: Feeling fine, no fever, no n/v/d - Physical Exam General: Alert, Cooperative, No apparent distress Lungs: Clear to auscultation, Normal air movement Cardiovascular: Regular rate, Regular Rhythm Abdomen: Soft, Non Tender, Non-Distended Skin: Ulcer/ Wound - foot wrapped Vital Signs Temp Pulse Resp BP Pulse Ox 98.1 F 108 H 16 107/59 L 94 08/09/18 09:00 08/09/18 09:00 08/09/18 09:00 08/09/18 09:00 08/09/18 09:00 Oxygen Flow Rate (L/min) 2 Oxygen Delivery Method Room Air Weight: 107 kg Body Mass Index (BMI) 32.0 Intake and Output for Last 24 Hours 08/07/18 08/08/18 08/09/18 23:59 23:59 23:59 Intake Total 2935.6 / 2935.6 2557.5 / 2557.5 516.7 / 516.7 Output Total 6325 / 6325 7800 / 7800 1110 / 1110 Balance -3389.4 / -3389.4 -5242.5 / -5242.5 -593.3 / -593.3 Microbiology Past 72 Hours 08/06/18 12:09 Gram Stain - Final Wound - Right Foot Wound Culture - Final Pseudomonas aeroginosa Citrobacter freundii Anaerobic Culture - Final No anaerobic bacteria isolated. 08/05/18 16:11 Urine Culture - Final Urine, Catheterized Culture exhibits no growth. 08/05/18 18:15 Blood Culture - Preliminary Blood Culture (Wb) - No Site/Description Given No growth in 48 hours. Laboratory Tests Past 24 Hrs 08/08/18 08/09/18 08/09/18 16:08 04:58 04:58 Specimen Type ART Sample Site L Radial pH 7.61 H* Bicarbonate Actual 38.2 H POC Total CO2 39 Base Excess 17 H O2 Saturation 100 H ABG pCO2 38.0 ABG pO2 151 H Derek Test POS O2 Delivery Device Nasal Can Liter Flow 3.0 Blood Gas Notified Whom HOSP Blood Gas Notified Time 350 Sodium 145 Potassium 3.2 L Chloride 97 L Carbon Dioxide 37.0 H BUN 73 H Creatinine 1.41 H Estim Creat Clear Calc 61.54 Est GFR (MDRD) Af Amer 65 Est GFR (MDRD) Non-Af 54 L BUN/Creatinine Ratio 51.8 H Glucose 149 H Calcium 8.3 L Phosphorus 2.0 L Magnesium 2.0 Albumin 2.5 L POC Glucose 08/09/18 08/08/18 08/08/18 06:50 23:00 16:10 POC Glucose 76 155 H 180 H 08/08/18 11:58 POC Glucose 121 H Medical Necessity - Tobacco Use Smoking Status: Former smoker Tobacco Use: Cigarettes Route of nutrition/ use of supplements: [] Nutritional Intake: [] IV Site: [] Aponte Catheter: [] - Assessment/Plan Antibiotics: [] Assessment/Plan: [] Recent RLE gangrene with pasteurella bacteremia - overall RLE much improved. No fever or leukocytosis here. Did have wound cx done which is showing PsA and citrobacter. Will narrow abx to po levaquin/flagyl. Last qtc was WNL. Plan on 10 day course of these po abx. Will follow, d/w telephonic nurse case manager
[2018-08-09 11:46] LABS: Bedside Glucose 205 mg/dL (70-110)
--- NOTE | 2018-08-09 12:36 | PCM.PN.REN ---
Subjective: good urine ouput with lasix drip. Still with significant anasarca. Renal fxn continues to improve. Replacing potassium. at bedside. - Physical Exam General: Alert, Oriented x3, Cooperative, No apparent distress, - - facial rubra Lungs: Rales, Wheezes Cardiovascular: Regular rate, Murmur Abdomen: Bowel Sounds Present, Soft, Non Tender, Distended, Obese Extremities: Edema - anasarca to chest wall Skin: Ulcer/ Wound - BLE, foot Musculoskeletal: No Muscle Wasting, - - gen weakness Neurological: - - no tremor Psych/Mental Status: Normal Affect, Appropriate Vital Signs Temp Pulse Resp BP Pulse Ox 98.1 F 84 16 107/59 L 94 08/09/18 09:00 08/09/18 11:45 08/09/18 09:00 08/09/18 09:00 08/09/18 09:00 Oxygen Flow Rate (L/min) 2 Oxygen Delivery Method Room Air Weight: 107 kg Body Mass Index (BMI) 32.0 Intake and Output for Last 24 Hours 08/07/18 08/08/18 08/09/18 23:59 23:59 23:59 Intake Total 2935.6 / 2935.6 2557.5 / 2557.5 988.7 / 988.7 Output Total 6325 / 6325 7800 / 7800 2935 / 2935 Balance -3389.4 / -3389.4 -5242.5 / -5242.5 -1946.3 / -1946.3 Microbiology Past 72 Hours 08/06/18 12:09 Gram Stain - Final Wound - Right Foot Wound Culture - Final Pseudomonas aeroginosa Citrobacter freundii Anaerobic Culture - Final No anaerobic bacteria isolated. 08/05/18 16:11 Urine Culture - Final Urine, Catheterized Culture exhibits no growth. 08/05/18 18:15 Blood Culture - Preliminary Blood Culture (Wb) - No Site/Description Given No growth in 48 hours. Laboratory Tests Past 24 Hrs 08/08/18 08/09/18 08/09/18 16:08 04:58 04:58 Specimen Type ART Sample Site L Radial pH 7.61 H* Bicarbonate Actual 38.2 H POC Total CO2 39 Base Excess 17 H O2 Saturation 100 H ABG pCO2 38.0 ABG pO2 151 H Derek Test POS O2 Delivery Device Nasal Can Liter Flow 3.0 Blood Gas Notified Whom [facility] Blood Gas Notified Time 350 Sodium 145 Potassium 3.2 L Chloride 97 L Carbon Dioxide 37.0 H BUN 73 H Creatinine 1.41 H Estim Creat Clear Calc 61.54 Est GFR (MDRD) Af Amer 65 Est GFR (MDRD) Non-Af 54 L BUN/Creatinine Ratio 51.8 H Glucose 149 H Calcium 8.3 L Phosphorus 2.0 L Magnesium 2.0 Albumin 2.5 L POC Glucose 08/09/18 08/09/18 08/08/18 11:09 06:50 23:00 POC Glucose 205 H 76 155 H 08/08/18 16:10 POC Glucose 180 H Medical Necessity - Tobacco Use Smoking Status: Former smoker Tobacco Use: Cigarettes Assessment/Plan All Active Problems Vasculitis (Acute) Abscess of right leg (Acute) Abscess of right foot (Acute) Gangrene (Acute) Severe sepsis (Acute) 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 GUALBERTO with creatinine improved from 2.8 to 1.4 today. Renal US no hydro. + bilateral renal cysts. 2. Anasarca likely due to fluid retention, pulmonary hypertension, valvular disease, biventricular dilation. Continue with diuretic therapy with Lasix drip. Recommend discharge to ECF on bumex 1-2mg twice a day 3. Osteomyelitis of right foot, bilateral lower extremity wounds managed by wound care center on IV antibiotic therapy. 4. Diabetes mellitus type 2, neuropathy. 5. History of paroxysmal atrial fibrillation on anticoagulation. 6. History of stroke. 7. History of tobacco and alcohol use 8. hx DVT RLE 9. Hypokalemia replace. Start aldactone
--- NOTE | 2018-08-09 12:52 | PN_ITS ---
<Huyen Crandall - Last Filed: 08/09/18 12:53> Subjective: Patient seen and examined. Resting comfortably in bed, in no acute distress. at bedside. Continued on Lasix drip. Continues to have significant urine output. Denies current complaints. - Physical Exam General: Alert, Oriented x3, Cooperative, No apparent distress HEENT: Atraumatic, PERRLA, EOMI, Normocephalic Neck: Supple, No JVD, Negative Carotid Bruits Lungs: Clear to auscultation, Diminished Cardiovascular: - - Atrial fibrillation, rate controlled Abdomen: Bowel Sounds Present, Soft, Non Tender, Non-Distended, Obese Extremities: No clubbing, No cyanosis, - - Edema - Abdominal, bilateral upper thigh +2 Skin: - - Extensive bilateral lower extremity wounds, right greater than left. Bilateral upper extremity scabbing secondary to picking. Musculoskeletal: No Tenderness to Palpation of Joints or Extremities Neurological: Cranial nerves II-XII grossly intact, Neuro grossly intact Psych/Mental Status: Normal Affect, Appropriate Vital Signs Temp Pulse Resp BP Pulse Ox 98.1 F 84 16 107/59 L 94 08/09/18 09:00 08/09/18 11:45 08/09/18 09:00 08/09/18 09:00 08/09/18 09:00 Oxygen Flow Rate (L/min) 2 Oxygen Delivery Method Room Air Weight: 235 lb 14.314 oz Body Mass Index (BMI) 32.0 Intake and Output for Last 24 Hours 08/07/18 08/08/18 08/09/18 23:59 23:59 23:59 Intake Total 2935.6 / 2935.6 2557.5 / 2557.5 988.7 / 988.7 Output Total 6325 / 6325 7800 / 7800 2935 / 2935 Balance -3389.4 / -3389.4 -5242.5 / -5242.5 -1946.3 / -1946.3 Microbiology Past 72 Hours 08/06/18 12:09 Gram Stain - Final Wound - Right Foot Wound Culture - Final Pseudomonas aeroginosa Citrobacter freundii Anaerobic Culture - Final No anaerobic bacteria isolated. 08/05/18 16:11 Urine Culture - Final Urine, Catheterized Culture exhibits no growth. 08/05/18 18:15 Blood Culture - Preliminary Blood Culture (Wb) - No Site/Description Given No growth in 48 hours. Laboratory Tests Past 24 Hrs 08/08/18 08/09/18 08/09/18 16:08 04:58 04:58 Specimen Type ART Sample Site L Radial pH 7.61 H* Bicarbonate Actual 38.2 H POC Total CO2 39 Base Excess 17 H O2 Saturation 100 H ABG pCO2 38.0 ABG pO2 151 H Derek Test POS O2 Delivery Device Nasal Can Liter Flow 3.0 Blood Gas Notified Whom HOSP Blood Gas Notified Time 350 Sodium 145 Potassium 3.2 L Chloride 97 L Carbon Dioxide 37.0 H BUN 73 H Creatinine 1.41 H Estim Creat Clear Calc 61.54 Est GFR (MDRD) Af Amer 65 Est GFR (MDRD) Non-Af 54 L BUN/Creatinine Ratio 51.8 H Glucose 149 H Calcium 8.3 L Phosphorus 2.0 L Magnesium 2.0 Albumin 2.5 L POC Glucose 08/09/18 08/09/18 08/08/18 11:09 06:50 23:00 POC Glucose 205 H 76 155 H 08/08/18 16:10 POC Glucose 180 H Medical Necessity - Tobacco Use Smoking Status: Former smoker Tobacco Use: Cigarettes Assessment/Plan All Active Problems Vasculitis (Acute) Abscess of right leg (Acute) Abscess of right foot (Acute) Gangrene (Acute) Severe sepsis (Acute) 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 Acute on chronic systolic CHF with anasarca-chest x-ray on admission shows bilateral pleural effusions. Aponte placed in ER for strict I's and O's. Daily weight. Echocardiogram May 2018 showed an EF of 50%, moderately severe mitral valve insufficiency, moderate tricuspid valve insufficiency, RVSP estimated to be 67 mmHg, severe pulmonary hypertension. Cardiology consulted. Continue Lasix drip. Continue beta-dilia. Cardizem discontinued. Continues to have significant urine output. Repeat CXR morning showed decreased interstitial edema , bibasilar consolidation and effusions. Nephrology recommending continue lasix drip with DC on torsemide or bumex. 2. Acute encephalopathy-unclear etiology. Resolved. Urine and blood cultures negative. Blood gas and ammonia within normal limits. 3. Acute kidney injury on chronic kidney disease stage III-suspect secondary to urinary retention. Aponte placed in ER. Creatinine improving. Trend BMP. Nephrology following. US kidney without hydronephrosis. Bilateral cysts. 4. Paroxysmal atrial fibrillation with supratherapeutic INR-continue atenolol. Resume Coumadin. Coumadin initially held on admission due to supratherapeutic INR. 5. Chronic extensive wounds including bilateral lower extremities, right greater than left, ischial and sacral-frequent position changes. Wound nurse consult. Dr. Gruber consulted. Wounds present on admission. History of multiple organisms and wound cultures. History of osteomyelitis. Wound culture pending right foot showing Pseudomonas. IV unasyn and IV vanc discontinued. ID consulted. Begin PO levaquin and flagyl per ID recommendations. Recommend outpatient follow up with vascular surgery for suspected chronic vascular disease. Dressing changes as ordered: wet to dry dakin's with gauze, kerlix, abd pads and gregory BLLE. Change BID. 6. Hypertension-Cardizem discontinued. Continue atenolol. 7. Hyperlipidemia-continue statin. 8. Type 2 diabetes mellitus-hold oral regimen. Accu-Cheks before meals at bedtime with sliding scale insulin. Hemoglobin A1c 6%. 9. Chronic iron deficiency anemia/anemia of chronic disease-stable, trend CBC. 10. History of CVA with mild left hemiparesis-continue aspirin, statin. PT/OT. 11. Debility/weakness-resides at SNF. Reported to use Swapnil lift. Unable to ambulate. PT/OT. 12. Depression-continue home paroxetine regimen. 13. Protein calorie malnutrition-nutrition consult. 14. Obesity-nutrition consult for dietary recommendations. DVT prophylaxis-Coumadin. This patient was seen by NADINE Chow under the supervision of Dr. Solorzano. <Wilner Solorzano - Last Filed: 08/09/18 16:52> - Physical Exam General: Alert, No apparent distress HEENT: Atraumatic, Normocephalic Oral: Moist Mucosa, No Gingival or Mucosal Lesions/ Ulcerations Neck: No Nodes, Thyroid Normal Size and Texture Lungs: Clear to auscultation, Normal air movement, No rhonchi, No wheeze Cardiovascular: Regular rate, Regular Rhythm, Normal S1, Normal S2 Abdomen: Bowel Sounds Present, Soft, Non Tender, Non-Distended, No Hepato- splenomegaly Extremities: No clubbing, No cyanosis, - Psych/Mental Status: Normal Affect, Appropriate Vital Signs Temp Pulse Resp BP Pulse Ox 36.7 C 90 17 109/78 99 08/09/18 15:00 08/09/18 15:08 08/09/18 15:00 08/09/18 15:00 08/09/18 15:00 Oxygen Flow Rate (L/min) 2 Oxygen Delivery Method Room Air Weight: 107 kg Body Mass Index (BMI) 32.0 Intake and Output for Last 24 Hours 08/07/18 08/08/18 08/09/18 23:59 23:59 23:59 Intake Total 2935.6 / 2935.6 2557.5 / 2557.5 988.7 / 988.7 Output Total 6325 / 6325 7800 / 7800 2935 / 2935 Balance -3389.4 / -3389.4 -5242.5 / -5242.5 -1946.3 / -1946.3 Microbiology Past 72 Hours 08/06/18 12:09 Gram Stain - Final Wound - Right Foot Wound Culture - Final Pseudomonas aeroginosa Citrobacter freundii Anaerobic Culture - Final No anaerobic bacteria isolated. 08/05/18 16:11 Urine Culture - Final Urine, Catheterized Culture exhibits no growth. 08/05/18 18:15 Blood Culture - Preliminary Blood Culture (Wb) - No Site/Description Given No growth in 48 hours. Laboratory Tests Past 24 Hrs 08/09/18 08/09/18 08/09/18 04:58 04:58 15:30 PT 18.2 H INR 1.5 Sodium 145 Potassium 3.2 L Chloride 97 L Carbon Dioxide 37.0 H BUN 73 H Creatinine 1.41 H Estim Creat Clear Calc 61.54 Est GFR (MDRD) Af Amer 65 Est GFR (MDRD) Non-Af 54 L BUN/Creatinine Ratio 51.8 H Glucose 149 H Calcium 8.3 L Phosphorus 2.0 L Magnesium 2.0 Albumin 2.5 L POC Glucose 08/09/18 08/09/18 08/08/18 11:09 06:50 23:00 POC Glucose 205 H 76 155 H Assessment/Plan Patient seen and examined independently. Data reviewed. I agree with the above note by the nurse practitioner. 1. Acute CHF exacerbation: Continue with the Lasix drip. Cardiology consultation. 2. Encephalopathy: Unclear etiology ABG consistent with metabolic alkalosis with respiratory alkalosis. No carbon dioxide narcosis, however. Review of the medications did not reveal any sedating medications. As needed morphine was ordered but never received. Unclear etiology but would recommend outpatient evaluation for geriatrics. Patient's states that this is never happened to the patient before. Patient will require outpatient 3. Lower extremity wounds: Pseudomonas and other gram-negative krystin. On Levaquin. 4. Possible sleep apnea: Was sent to his facility from another hospital with what sounds like a BiPAP but the patient has not been compliant with using it. Sleep evaluation. Check a nocturnal pulse ox. Code Visit Inpatient E&M: 83538 Subs Hosp L2
[2018-08-09] MEDS: metroNIDAZOLE 500 MG Tablet PO ×2 (13:54→21:15)
[2018-08-09] MEDS: Glucerna Shake 120 ML LIQUID PO ×2 (13:54→17:41)
[2018-08-09] MEDS: Spironolactone 25 MG Tablet PO (13:54)
[2018-08-09 15:57] LABS: International Normalized Ratio 1.5; Prothrombin Time (Protime)PT. 18.2 SECONDS (11.7-14.9)
--- NOTE | 2018-08-09 16:36 | CHAPLAIN ---
Type of Pastoral Visit _x__ Initial Visit ___ Follow-up Visit ___ On-call Visit ___ General Patient Visit ___ Spiritual Assessment ___ Family Conference ___ Bereavement ___ Rapid Response ___ Code Blue ___ Other (describe below) Pastoral Care Referral From _x__ Patient ___ Family ___ Nurse ___ Physician ___ Sales Promotion Representative ___ Warehouse Clerk ___ Other (describe below) Sacrament/Intervention _x__ Active listening ___ Anointing ___ Pentecostal ___ Bereavement ___ Communion ___ Natalie exploration ___ ___ Life review ___ Prayer ___ Reconciliation ___ Sacrament of Sick _x__ Supportive presence ___ Wedding ___ Other (describe below) Pastoral Comments
[2018-08-09] MEDS: Tamsulosin HCl 0.4 MG Capsule PO (16:42)
--- NOTE | 2018-08-09 16:51 | CASEMGMT ---
Social Work: Spoke with YOSELYN Matson who states that patient will be medically ready for D/C tomorrow. TC from Angelica at [facility]. Angelica states that precert has been obtained. Informed Angelica that patient will not be medically ready for D/C until tomorrow. PLAN: Patient to be discharged to [facility] when medically ready. NALDO Gavin
[2018-08-09 17:45] LABS: Bedside Glucose 138 mg/dL (70-110)
[2018-08-09] MEDS: Atorvastatin Calcium 10 MG Tablet PO (21:15)
[2018-08-09] MEDS: Glucerna Shake 120 ML LIQUID 60 ML PO (21:16)
[2018-08-09 22:45] LABS: Bedside Glucose 184 mg/dL (70-110)
[2018-08-10] VITALS (7 sets, daily range): BP systolic 110–114; BP diastolic 67–76; PULSE 85–98; RESP 14–16; TEMP 36.8–37; O2SAT 94–97
[2018-08-10] MEDS: Acetaminophen 325 MG Tablet 650 MG PO ×2 (02:44→09:28)
[2018-08-10] MEDS: metroNIDAZOLE 500 MG Tablet PO ×2 (05:04→13:20)
[2018-08-10] MEDS: levoFLOXacin 750 MG Tablet PO (05:04)
[2018-08-10 06:48] LABS: Albumin, Serum 2.3 g/dL (3.2-5.0); BUN 58 mg/dL (7-18); BUN/Creat Ratio 41.1 RATIO (10-20); Calcium,Total 8.1 mg/dL (8.5-10.1); Chloride 94 mmol/L (98-107); Creatinine, Serum 1.41 mg/dL (0.70-1.30); EST Glomerular Filtration Rate 54 mL/min (>60); Est Glom Filt Rate - Afr Amer 65 mL/min (>60); Estimated Creatinine Clearance 61.54 ml/min; Glucose 159 mg/dL (74-106); Phosphorus 1.3 mg/dL (2.5-4.9); Potassium 3.1 mmol/L (3.5-5.1); Sodium Level 142 mmol/L (136-145)
[2018-08-10 06:49] LABS: International Normalized Ratio 1.5
[2018-08-10 07:06] LABS: Bedside Glucose 157 mg/dL (70-110)
--- NOTE | 2018-08-10 07:17 | PN.CARD_ITS ---
Subjectve: Patient seen and evaluated. Appears to be doing better. Objective: Vital Signs Temp Pulse Resp BP Pulse Ox 98.6 F 95 16 110/67 94 08/10/18 02:47 08/10/18 03:00 08/10/18 02:47 08/10/18 02:47 08/10/18 02:47 Oxygen Flow Rate (L/min) 2 Oxygen Delivery Method Room Air Weight: 229 lb 4.492 oz Body Mass Index (BMI) 32.0 Intake and Output for Last 24 Hours 08/08/18 08/09/18 08/10/18 23:59 23:59 23:59 Intake Total 2557.5 / 2557.5 1368.7 / 1368.7 484.3 / 484.3 Output Total 7800 / 7800 7885 / 7885 1525 / 1525 Balance -5242.5 / -5242.5 -6516.3 / -6516.3 -1040.7 / -1040.7 General: Awake, Alert, Oriented x 3 HEENT: PERRL, EOMI, Sclera Non Icteric Neck: Supple, Good ROM, No Lymph Node Enlargement Lungs: Clear to auscultation Cardiovascular: Regular Rhythm, Normal S1, Normal S2, No Murmurs, No Rubs, No Gallops Vascular: No Carotid Bruits, Normal Femoral Pulses, Normal Radial Pulses, Normal Dorsalis Pedal Pulse, Normal Posterior Tibial Pulses Abdomen: Bowel Sounds Present, Soft, Non Tender, No HSM, No Organomegaly Extremities: No Cyanosis, No Clubbing, No edema Neurological: No Focal Motor or Sensory Deficit 08/09/18 15:30: PT 18.2 H, INR 1.5 08/10/18 06:12: Sodium 142, Potassium 3.1 L, Chloride 94 L, Carbon Dioxide 39.0 H, BUN 58 H, Creatinine 1.41 H, Est GFR (MDRD) Af Amer 65, Est GFR (MDRD) Non- Af 54 L, BUN/Creatinine Ratio 41.1 H, Glucose 159 H, Calcium 8.1 L, Phosphorus 1.3 L 08/10/18 06:12: PT 18.0 H, INR 1.5 Rhythm: EKG: ECHO: Stress Test: Cardiac Cath: PCI: CT Surgery: Holter monitor: EPS: PPM: CXR: Chest CT Scan: Medical Necessity - Tobacco Use Smoking Status: Former smoker Tobacco Use: Cigarettes Assessment/Plan 1. Shortness of breath-congestive heart failure chronic systolic * He presents with shortness of breath and evidence of orthopnea. He does have minimal pedal edema. His previous echocardiogram however demonstrated left ventricular systolic dysfunction with significant valvular abnormalities. I suspect this is the etiology of his heart failure which has been worsened by his worsening renal function. His BUN remained stable as well as his creatinine which appears to be declining. An occult GI bleed needs to be excluded due to the markedly elevated BUN and his elevated INR. * My recommendation at this time will be to discontinue the intravenous Lasix and place him on bumetanide 2 mg a day as suggested by the renal service. * Continue beta-dilia with atenolol twice a day * Further recommendations will be made based on his response to the above. * Chest x-ray demonstrates improvement in his pleural effusions. 2. Valvular heart disease * He does have evidence of valvular heart disease with moderately severe mitral regurgitation and elevated pulmonary to systolic pressure. He also has biatrial enlargement. At this time recommendation will be to treat this with aggressive diuretic therapy. * In light of his worsening renal function I would not suggest the addition of an MARIO inhibitor. * 3. Hypertension * His blood pressure appears to be under fair control on the current medical therapy. Indeed it is actually low and I would recommend that we discontinue his diltiazem at this time and continue him on the beta-dilia. * I would also recommend reducing the dose of his atenolol. Hopefully this would improve his perfusion pressure. * * * Thank you for allowing me to participate in the care of your patient. Please don't hesitate to call if any issues arise
--- NOTE | 2018-08-10 08:34 | PCM.PN.REN ---
Subjective: edema improving creatinine stable at 1.4,remains on potassium suppl and started on aldactone. Breathing improved, remains debilitated - Physical Exam General: Alert, Oriented x3, - - rosacea Neck: Supple Lungs: Clear to auscultation Cardiovascular: Regular rate, Murmur Abdomen: Bowel Sounds Present, Soft, Non Tender, Distended, Obese Extremities: Edema - anasarca Musculoskeletal: Muscle Wasting, - - gen weakness Neurological: - - no tremor Psych/Mental Status: Normal Affect, Appropriate, Alert and oriented to time, place, person, mood and affect Vital Signs Temp Pulse Resp BP Pulse Ox 98.6 F 95 16 110/67 94 08/10/18 02:47 08/10/18 03:00 08/10/18 02:47 08/10/18 02:47 08/10/18 07:15 Oxygen Flow Rate (L/min) 2 Oxygen Delivery Method Room Air Weight: 104 kg Body Mass Index (BMI) 32.0 Intake and Output for Last 24 Hours 08/08/18 08/09/18 08/10/18 23:59 23:59 23:59 Intake Total 2557.5 / 2557.5 1368.7 / 1368.7 484.3 / 484.3 Output Total 7800 / 7800 7885 / 7885 1525 / 1525 Balance -5242.5 / -5242.5 -6516.3 / -6516.3 -1040.7 / -1040.7 Microbiology Past 72 Hours 08/06/18 12:09 Gram Stain - Final Wound - Right Foot Wound Culture - Final Pseudomonas aeroginosa Citrobacter freundii Anaerobic Culture - Final No anaerobic bacteria isolated. 08/05/18 16:11 Urine Culture - Final Urine, Catheterized Culture exhibits no growth. 08/05/18 18:15 Blood Culture - Preliminary Blood Culture (Wb) - No Site/Description Given No growth in 48 hours. Laboratory Tests Past 24 Hrs 08/09/18 08/10/18 08/10/18 15:30 06:12 06:12 PT 18.2 H 18.0 H INR 1.5 1.5 Sodium 142 Potassium 3.1 L Chloride 94 L Carbon Dioxide 39.0 H BUN 58 H Creatinine 1.41 H Estim Creat Clear Calc 61.54 Est GFR (MDRD) Af Amer 65 Est GFR (MDRD) Non-Af 54 L BUN/Creatinine Ratio 41.1 H Glucose 159 H Calcium 8.1 L Phosphorus 1.3 L Albumin 2.3 L POC Glucose 08/10/18 08/09/18 08/09/18 06:37 21:09 16:41 POC Glucose 157 H 184 H 138 H 08/09/18 11:09 POC Glucose 205 H Medical Necessity - Tobacco Use Smoking Status: Former smoker Tobacco Use: Cigarettes Assessment/Plan All Active Problems Vasculitis (Acute) Abscess of right leg (Acute) Abscess of right foot (Acute) Gangrene (Acute) Severe sepsis (Acute) 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 GUALBERTO with creatinine improved 1.4 today. Renal US no hydro. + bilateral renal cysts. 2. Anasarca likely due to fluid retention, pulmonary hypertension, valvular disease, biventricular failure. Continue with diuretic therapy with bumex qday to bid, aldactone 3. Osteomyelitis of right foot, bilateral lower extremity wounds managed by wound care center on IV antibiotic therapy. 4. Diabetes mellitus type 2, neuropathy. 5. History of paroxysmal atrial fibrillation on anticoagulation. 6. Hypokalemia replace. Started aldactone, continue KCL, monitor labs weekly
[2018-08-10] MEDS: Insulin Lispro 100 UNIT/ML INSULN.PEN SC ×2 (09:16→11:07)
[2018-08-10] MEDS: Spironolactone 25 MG Tablet PO (09:17)
[2018-08-10] MEDS: Multivitamins,Ther W-Minerals Tablet 1 TABLET PO (09:17)
[2018-08-10] MEDS: Ferrous Sulfate 325 MG Tablet PO (09:17)
[2018-08-10] MEDS: Glucerna Shake 120 ML LIQUID 60 ML PO (09:17)
[2018-08-10] MEDS: Aspirin E.C. 81 MG Tablet PO (09:18)
[2018-08-10] MEDS: Ascorbic Acid 500 MG Tablet PO (09:18)
[2018-08-10] MEDS: 0.9% NaCl Peripheral Flush Adult/Peds IV (09:18)
[2018-08-10] MEDS: Atenolol 50 MG Tablet PO (09:18)
[2018-08-10] MEDS: Bumetanide 2 MG Tablet PO (09:23)
--- NOTE | 2018-08-10 10:18 | PCM.EXTCARCO ---
- Diet 08/05/18 15:36 Diet: Cardiac: Calorie-Controlled Food consistency:: Regular Liquid Consistency:: Regular/Thin How many daily calories?: 1800 calorie - Routine Orders/Code Status Enema Type: Fleetz Enema Frequency: Daily PRN Suppository Type: Dulcolax 10mg Suppository Frequency: Daily PRN O2 Liters per Minute: 2-4 O2 Frequency: PRN Keep PO Greater than or Equal to (%): 90 Routine Lab Work: - - BMP in 2 days, then BMP and CBC Q Week. Code Status: Full Code - Wound(s) RIGHT LEG Wound Type: Stasis Ulcer Dressing Change: Dakins moistened gauze LEFT LEG Wound Type: Stasis Ulcer Dressing Change: Dakins moistened gauze RIGHT ARM Wound Type: Scattered sCABS LEFT ARM Wound Type: Stasis Ulcer Dressing Change: Adaptic with dry dressing COCCYX Wound Type: Pressure Injury Left Buttock Wound Type: Pressure Injury Right Buttock Wound Type: Pressure Injury - Suggestions for Active Care Change Position every (hours): 2 Times a day to sit in chair: 3 - Therapies Physical Therapy: Eval and Treat Occupational Therapy: Eval and Treat - Problem/Diagnosis 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 Anticipate Stage III or IV if excision done. Current Visit: No (4) Right ischial pressure sore, stage 2 Status: Chronic Comment: at least a Stage II. Anticipate Stage III or IV if excision done. Current Visit: No (5) Pressure ulcer of sacral region, stage 2 Status: Chronic Comment: at least a Stage II. Anticipate Stage III or IV if excision done. Current Visit: No (6) Vasculitis Status: Chronic Current Visit: No (7) Abscess of right foot Status: Acute Current Visit: No (8) Gangrene Status: Acute Current Visit: No (9) Osteomyelitis Status: Suspected Current Visit: No (10) PVD (peripheral vascular disease) Status: Suspected Current Visit: No (11) Anemia Status: Chronic Current Visit: No (12) Chronic anticoagulation Status: Chronic Current Visit: No (13) Murmur, cardiac Status: Chronic Current Visit: No (14) Cardiomyopathy Status: Chronic Comment: 47 % EF in 2013 Current Visit: No (15) Pulmonary HTN Status: Chronic Comment: PA systolic 51 in 2013 Current Visit: No (16) Tobacco dependence due to cigarettes Status: Chronic Current Visit: No (17) Diabetic wet gangrene of the foot Status: Acute Current Visit: No (18) CVA, old, hemiparesis Status: Chronic Comment: left side weakness....stroke in 2013 Current Visit: No (19) BPH (benign prostatic hyperplasia) Status: Suspected Current Visit: No (20) Urinary incontinence Status: Chronic Current Visit: No (21) Ulcer of right lower extremity with fat layer exposed Status: Chronic Current Visit: No (22) Ulcer of left lower extremity with fat layer exposed Status: Chronic Current Visit: No (23) 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 Current Visit: No (24) Ulcer of right foot with necrosis of muscle Status: Chronic Current Visit: No (25) Osteomyelitis Status: Chronic Current Visit: No (26) Type 2 diabetes mellitus with diabetic polyneuropathy Status: Chronic Current Visit: No (27) Localized edema Status: Chronic Current Visit: No (28) Malnutrition Status: Chronic Current Visit: No (29) Abscess of left leg Status: Chronic Current Visit: No (30) Ulcer of right lower extremity with fat layer exposed Status: Chronic Current Visit: No (31) Ulcer of left lower extremity with fat layer exposed Status: Chronic Current Visit: No (32) Vasculitic ulcer of lower extremity Status: Suspected Current Visit: No (33) Tobacco user Status: Chronic Current Visit: No (34) HLD (hyperlipidemia) Status: Chronic Current Visit: No (35) DM2 (diabetes mellitus, type 2) Status: Chronic Current Visit: No (36) Depression Status: Chronic Current Visit: No (37) Chronic low back pain Status: Chronic Current Visit: No (38) Benign essential HTN Status: Chronic Current Visit: No (39) CHF (congestive heart failure) Status: Acute Current Visit: Yes (40) Acute kidney failure Status: Acute Current Visit: Yes - Allergies/Procedures Done in Hospital Allergies/Adverse Reactions: Allergies No Known Allergies Allergy (Verified 08/05/18 13:36) Procedures: None - Type of Care/Length of Stay Estimated LOS: More Than 30 Days Type of Care Needed: Skilled Rehab Potential: Fair Prognosis: Fair - Additional Orders/Day of Discharge H&P will serve as current which was dated: 08/05/18 Day of Discharge: 08/10/18 - Dietary and Speech Recommendations Dietitian Recommendations/Changes: Suggest diet change to 2000 calorie, cardiac/low sodium with 1500 ml fluid restriction. Continue ONS as ordered to assist w/ wound healing. - Follow Up Care Primary Care Physician: Hong Sparks MD [Primary Care Provider] - Please follow up with your Primary Care Physician in: 1 Week Please Follow Up With: Mando Ponce MD - May see CORE DRILLER/PA When: 1-2 Weeks Please Follow Up With: Patty Black DO When: 2 Weeks Please Follow Up With: Wound Center When: Weekly, as scheduled Please Follow Up With: Jack Dotson DPM When: 1 Week
--- NOTE | 2018-08-10 10:22 | TREXTCA.CO_ITS ---
Addendum entered and electronically signed by NADINE Chow 08/10/18 10:28: Code Visit Check INR Q week. Original Note: - Diet 08/05/18 15:36 Diet: Cardiac: Calorie-Controlled Food consistency:: Regular Liquid Consistency:: Regular/Thin How many daily calories?: 1800 calorie - Routine Orders/Code Status Enema Type: Fleetz Enema Frequency: Daily PRN Suppository Type: Dulcolax 10mg Suppository Frequency: Daily PRN O2 Liters per Minute: 2-4 O2 Frequency: PRN Keep PO Greater than or Equal to (%): 90 Routine Lab Work: - - BMP in 2 days, then BMP and CBC Q Week. Code Status: Full Code - Wound(s) RIGHT LEG Wound Type: Stasis Ulcer Dressing Change: Dakins moistened gauze LEFT LEG Wound Type: Stasis Ulcer Dressing Change: Dakins moistened gauze RIGHT ARM Wound Type: Scattered sCABS LEFT ARM Wound Type: Stasis Ulcer Dressing Change: Adaptic with dry dressing COCCYX Wound Type: Pressure Injury Left Buttock Wound Type: Pressure Injury Right Buttock Wound Type: Pressure Injury - Suggestions for Active Care Change Position every (hours): 2 Times a day to sit in chair: 3 - Therapies Physical Therapy: Eval and Treat Occupational Therapy: Eval and Treat - Problem/Diagnosis 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 Anticipate Stage III or IV if excision done. Current Visit: No (4) Right ischial pressure sore, stage 2 Status: Chronic Comment: at least a Stage II. Anticipate Stage III or IV if excision done. Current Visit: No (5) Pressure ulcer of sacral region, stage 2 Status: Chronic Comment: at least a Stage II. Anticipate Stage III or IV if excision done. Current Visit: No (6) Vasculitis Status: Chronic Current Visit: No (7) Abscess of right foot Status: Acute Current Visit: No (8) Gangrene Status: Acute Current Visit: No (9) Osteomyelitis Status: Suspected Current Visit: No (10) PVD (peripheral vascular disease) Status: Suspected Current Visit: No (11) Anemia Status: Chronic Current Visit: No (12) Chronic anticoagulation Status: Chronic Current Visit: No (13) Murmur, cardiac Status: Chronic Current Visit: No (14) Cardiomyopathy Status: Chronic Comment: 47 % EF in 2013 Current Visit: No (15) Pulmonary HTN Status: Chronic Comment: PA systolic 51 in 2013 Current Visit: No (16) Tobacco dependence due to cigarettes Status: Chronic Current Visit: No (17) Diabetic wet gangrene of the foot Status: Acute Current Visit: No (18) CVA, old, hemiparesis Status: Chronic Comment: left side weakness....stroke in 2013 Current Visit : No (19) BPH (benign prostatic hyperplasia) Status: Suspected Current Visit: No (20) Urinary incontinence Status: Chronic Current Visit: No (21) Ulcer of right lower extremity with fat layer exposed Status: Chronic Current Visit: No (22) Ulcer of left lower extremity with fat layer exposed Status: Chronic Current Visit: No (23) 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 Current Visit: No (24) Ulcer of right foot with necrosis of muscle Status: Chronic Current Visit: No (25) Osteomyelitis Status: Chronic Current Visit: No (26) Type 2 diabetes mellitus with diabetic polyneuropathy Status: Chronic Current Visit: No (27) Localized edema Status: Chronic Current Visit: No (28) Malnutrition Status: Chronic Current Visit: No (29) Abscess of left leg Status: Chronic Current Visit: No (30) Ulcer of right lower extremity with fat layer exposed Status: Chronic Current Visit: No (31) Ulcer of left lower extremity with fat layer exposed Status: Chronic Current Visit: No (32) Vasculitic ulcer of lower extremity Status: Suspected Current Visit: No (33) Tobacco user Status: Chronic Current Visit: No (34) HLD (hyperlipidemia) Status: Chronic Current Visit: No (35) DM2 (diabetes mellitus, type 2) Status: Chronic Current Visit: No (36) Depression Status: Chronic Current Visit: No (37) Chronic low back pain Status: Chronic Current Visit: No (38) Benign essential HTN Status: Chronic Current Visit: No (39) CHF (congestive heart failure) Status: Acute Current Visit: Yes (40) Acute kidney failure Status: Acute Current Visit: Yes - Allergies/Procedures Done in Hospital Allergies/Adverse Reactions: Allergies No Known Allergies Allergy (Verified 08/05/18 13:36) Procedures: None - Type of Care/Length of Stay Estimated LOS: More Than 30 Days Type of Care Needed: Skilled Rehab Potential: Fair Prognosis: Fair - Additional Orders/Day of Discharge H&P will serve as current which was dated: 08/05/18 Day of Discharge: 08/10/18 - Dietary and Speech Recommendations Dietitian Recommendations/Changes: Suggest diet change to 2000 calorie, cardiac/ low sodium with 1500 ml fluid restriction. Continue ONS as ordered to assist w / wound healing. - Follow Up Care Primary Care Physician: Hong Sparks MD [Primary Care Provider] - Please follow up with your Primary Care Physician in: 1 Week Please Follow Up With: Mando Ponce MD - May see [employer] CUTTER/PA When: 1-2 Weeks Please Follow Up With: Patty Black DO When: 2 Weeks Please Follow Up With: Wound Center When: Weekly, as scheduled Please Follow Up With: Jack Dotson DPM When: 1 Week
--- NOTE | 2018-08-10 10:27 | PCM.DC.SUM ---
<Huyen Crandall - Last Filed: 08/10/18 10:36> Discharge Date and Diagnosis Date of Admission: 08/05/18 Date of Discharge: 08/10/18 - Primary Discharge Diagnosis Active and Suspected Problems 1. Acute on chronic systolic CHF with anasarca 2. Acute encephalopathy, unclear etiology 3. Acute kidney injury on chronic kidney disease stage III 4. Paroxysmal atrial fibrillation with supratherapeutic INR on admission 5. Chronic extensive wounds bilateral lower extremities, right greater than left, ischial and sacral pressure wounds-all present on admission. 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 Anticipate Stage III or IV if excision done. Right ischial pressure sore, stage 2 (Chronic) at least a Stage II. Anticipate Stage III or IV if excision done. Pressure ulcer of sacral region, stage 2 (Chronic) at least a Stage II. Anticipate Stage III or IV if excision done. 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) Ulcer of right foot with necrosis of muscle (Chronic) Osteomyelitis (Chronic) Type 2 diabetes mellitus with diabetic polyneuropathy (Chronic) Localized edema (Chronic) Malnutrition (Chronic) Abscess of left leg (Chronic) Ulcer of right lower extremity with fat layer exposed (Chronic) Ulcer of left lower extremity with fat layer exposed (Chronic) Tobacco user (Chronic) HLD (hyperlipidemia) (Chronic) DM2 (diabetes mellitus, type 2) (Chronic) Depression (Chronic) Chronic low back pain (Chronic) Benign essential HTN (Chronic) Hospital Course and Treatment Imaging Results: Diagnostic Data Ankle X-Ray 08/06/18 12:05 IMPRESSION: No acute bony abnormality. Electronically Signed: Gaston Crandall DO at 15:52 EDT Tel , Service support , Foot X-Ray 08/06/18 12:05 IMPRESSION: Amputated second and third metatarsals. MRI or bone scan would be more sensitive if clinically warranted. Electronically Signed: Thai Manjarrez MD at 18:47 EDT , Service support , Tibia/Fibula X-Ray 08/06/18 12:57 IMPRESSION: Normal x-ray examination of the tibia and fibula. Electronically Signed: Thai Manjarrez MD at 18:45 EDT , Service support , Chest X-Ray 08/08/18 04:30 IMPRESSION: Interval decrease in interstitial edema, bibasilar consolidation and effusions Electronically Signed: John Craven DO at 5:11 EDT Tel , Service support , Renal Ultrasound 08/08/18 05:55 IMPRESSION: Numerous cysts are noted of the kidneys. Electronically Signed: Pierre Gomez DO at 22:20 EDT Tel [phone], Service support , Consultations 08/05/18 17:08 Consult: Onc/Wound/instructional services librarian Routine Comment: Dr. Dotson- Podiatry Dr. Ponce-Cardiology Dr. Black-Nephrology Operations: None Procedures: None Summary of Care Provided: The patient is a 63 year old M admitted 08/05/2018 due to low blood pressure and hallucinations. 1. Acute on chronic systolic CHF with anasarca-chest x-ray on admission showed bilateral pleural effusions. Echocardiogram May 2018 showed an EF of 50%, moderately severe mitral valve insufficiency, moderate tricuspid valve insufficiency, RVSP estimated to be 67 mmHg, severe pulmonary hypertension. Cardiology consulted. Placed on Lasix drip during admission. Cardizem discontinued. Patient down approximately 20 pounds since admission. Repeat CXR morning showed decreased interstitial edema, bibasilar consolidation and effusions. Patient will be started on Bumex 2 mg daily at discharge. 2. Acute encephalopathy-unclear etiology. Resolved. Urine and blood cultures negative. Blood gas and ammonia within normal limits. Recommend outpatient follow up with geriatrics. 3. Acute kidney injury on chronic kidney disease stage III-suspect secondary to urinary retention. Continue bustillo. Creatinine improved. US kidney without hydronephrosis. Bilateral cysts. BMP Q Week. 4. Paroxysmal atrial fibrillation with supratherapeutic INR on admission-continue atenolol, reduced to once daily. Resume Coumadin. Coumadin initially held on admission due to supratherapeutic INR. INR weekly. 5. Chronic extensive wounds including bilateral lower extremities, right greater than left, ischial and sacral-frequent position changes. Dr. Dotson consulted. Wounds present on admission. History of multiple organisms and wound cultures. History of osteomyelitis. Wound culture right foot showing Pseudomonas and citrobacter. IV unasyn and IV vanc discontinued. ID consulted. Continue PO levaquin and flagyl per ID recommendations for total of 10 days. Recommend outpatient follow up with vascular surgery for suspected chronic vascular disease. Dressing changes as ordered: wet to dry dakin's with gauze, kerlix, abd pads and mario BLLE. Change BID. Follow up with Dr. Dotson and Wound Center at discharge. Follows with wound center weekly. 6. Hypertension-Cardizem discontinued. Atenolol regimen decreased to once daily. 7. Hyperlipidemia-continue statin. 8. Type 2 diabetes mellitus-continue home regimen. Hemoglobin A1c 6%. 9. Chronic iron deficiency anemia/anemia of chronic gjuovxy-oquqlr-syogg CBC weekly. 10. History of CVA with mild left hemiparesis-continue aspirin, statin. PT/OT. 11. Debility/weakness-resides at SNF. Reported to use Swapnil lift. Unable to ambulate. PT/OT. 12. Depression-continue home paroxetine regimen. 13. Protein calorie malnutrition-continue nutritional supplementations. 14. Obesity-nutrition consult for dietary recommendations. General: Alert, Oriented x3, Cooperative, No apparent distress HEENT: Atraumatic, PERRLA, EOMI, Normocephalic Neck: Supple, No JVD, Negative Carotid Bruits Lungs: Clear to auscultation, Diminished Cardiovascular: - - Atrial fibrillation, rate controlled Abdomen: Bowel Sounds Present, Soft, Non Tender, Non-Distended, Obese Extremities: No clubbing, No cyanosis, - - Edema - Abdominal, bilateral upper thigh +2 Skin: - - Extensive bilateral lower extremity wounds, right greater than left. Bilateral upper extremity scabbing secondary to picking. Musculoskeletal: No Tenderness to Palpation of Joints or Extremities Neurological: Cranial nerves II-XII grossly intact, Neuro grossly intact Psych/Mental Status: Normal Affect, Appropriate Patient seen exam prior to discharge. Physical assessment as noted above. Patient stable for discharge to SNF with the follow-up recommendations as noted above. This patient was seen by NADINE Chow under the supervision of Dr. Solorzano. Home Medications: Medications to take at Discharge Aspirin [Adult Aspirin] 81 mg PO DAILY 06/07/18 Cholecalciferol (VIT D3) [Vitamin D3] 1,000 unit PO DAILY 06/07/18 Acetaminophen [Tylenol Tablet] 650 mg PO Q6H PRN PRN tablet 06/14/18 Ascorbic Acid [Vitamin C] 500 mg PO BIDCM tablet 06/14/18 Tamsulosin HCl [Flomax] 0.4 mg PO DAILY@1730 capsule 06/14/18 Zinc Sulfate (50mg elemental) [Zinc Sulfate] 220 mg PO DAILY capsule 06/14/18 Argin/Glut/Cahmb/Collag/Mv-Min [Juan Packet] 1 each PO BID 08/05/18 Atorvastatin Calcium [Lipitor] 10 mg PO QHS 08/05/18 Famotidine 20 mg PO DAILY 08/05/18 Insulin Lispro [Humalog] See Protocol SQ 4X/DAY 08/05/18 Multivitamins,Ther W-Minerals [Multivitamin With Minerals] 1 tablet PO DAILY 08/05/18 Paroxetine HCl [Paxil] 40 mg PO DAILY 08/05/18 Warfarin [Coumadin] 6 mg PO DAILY 08/05/18 glipiZIDE [Glucotrol] 10 mg PO DAILY@0730 08/05/18 Atenolol [Tenormin (beta dilia)] 50 mg PO DAILY tablet 08/10/18 Bumetanide [Bumex] 2 mg PO DAILY tablet 08/10/18 Ferrous Sulfate 325 mg PO BIDCM tablet 08/10/18 Metronidazole [Flagyl] 500 mg PO TID tablet 08/10/18 Potassium Chloride [K-Dur] 40 meq PO BIDCM tablet 08/10/18 Sodium Hypochlorite [Dakins Solution 0.25% (1/2 Strength)] 1 applic TOPICAL BID bottle 08/10/18 Spironolactone [Aldactone] 25 mg PO DAILY tablet 08/10/18 levoFLOXacin tablet [Levaquin tablet] 750 mg PO DAILY@0600 tablet 08/10/18 Primary Care Physician: Hong Sparks MD [Primary Care Provider] - Please follow up with your Primary Care Physician in: 1 Week Please Follow Up With: Mando Ponce MD - May see 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[employer] 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/PA When: 1-2 Weeks Please Follow Up With: Patty Black DO When: 2 Weeks Please Follow Up With: Wound Center When: Weekly, as scheduled Please Follow Up With: Jack Dotson DPM When: 1 Week Disposition: [facility] facility Minutes spent on discharge:: 35 Patient Condition:: Stable Medical Necessity - Tobacco Use Smoking Status: Former smoker Tobacco Use: Cigarettes Meaningful Use Info Meaningful Use Diagnoses (Choose all that apply): CHF - CHF MARIO/ARB ordered at discharge?: No Reason MARIO/ARB not ordered?: Worsening renal function Documented LVEF (%): 50 <Wilner Solorzano - Last Filed: 08/10/18 16:45> Discharge Date and Diagnosis - Secondary Discharge Diagnosis Chronic Problems 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 Anticipate Stage III or IV if excision done. Right ischial pressure sore, stage 2 (Chronic) at least a Stage II. Anticipate Stage III or IV if excision done. Pressure ulcer of sacral region, stage 2 (Chronic) at least a Stage II. Anticipate Stage III or IV if excision done. 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) Ulcer of right foot with necrosis of muscle (Chronic) Osteomyelitis (Chronic) Type 2 diabetes mellitus with diabetic polyneuropathy (Chronic) Localized edema (Chronic) Malnutrition (Chronic) Abscess of left leg (Chronic) Ulcer of right lower extremity with fat layer exposed (Chronic) Ulcer of left lower extremity with fat layer exposed (Chronic) Tobacco user (Chronic) HLD (hyperlipidemia) (Chronic) DM2 (diabetes mellitus, type 2) (Chronic) Depression (Chronic) Chronic low back pain (Chronic) Benign essential HTN (Chronic) Hospital Course and Treatment Consultations 08/05/18 17:08 Consult: Onc/Wound/instructional services librarian Routine Comment: Operations: None Procedures: None Summary of Care Provided: Patient seen and examined independently. Data reviewed. I agree with the above note by the nurse practitioner. The patient is a 63 year old M presents with acute exacerbation of CHF. Patient was put on a Lasix drip and did diurese well. Patient was seen in consultation by cardiology as well as nephrology. Patient did have a period of confusion but that was further evaluated and workup was unremarkable. As for the patient's confusion was likely related with just sleep deprivation while he was here. [] Discharge Diet: 6 Cup Fluid Restriction, 2000 mg Sodium Diet Discharge Activity: Return to Normal Activity Disposition: [facility] facility Minutes spent on discharge:: 35 Patient Condition:: Stable Meaningful Use Info Meaningful Use Diagnoses (Choose all that apply): CHF - CHF MARIO/ARB ordered at discharge?: No Reason MARIO/ARB not ordered?: Worsening renal function Documented LVEF (%): 50 Code Visit Inpatient E&M: 35827 Disch Hosp
--- NOTE | 2018-08-10 10:36 | DS.PCM_ITS ---
<Huyen Crandall - Last Filed: 08/10/18 10:36> Discharge Date and Diagnosis Date of Admission: 08/05/18 Date of Discharge: 08/10/18 - Primary Discharge Diagnosis Active and Suspected Problems 1. Acute on chronic systolic CHF with anasarca 2. Acute encephalopathy, unclear etiology 3. Acute kidney injury on chronic kidney disease stage III 4. Paroxysmal atrial fibrillation with supratherapeutic INR on admission 5. Chronic extensive wounds bilateral lower extremities, right greater than left, ischial and sacral pressure wounds-all present on admission. 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 Anticipate Stage III or IV if excision done. Right ischial pressure sore, stage 2 (Chronic) at least a Stage II. Anticipate Stage III or IV if excision done. Pressure ulcer of sacral region, stage 2 (Chronic) at least a Stage II. Anticipate Stage III or IV if excision done. 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) Ulcer of right foot with necrosis of muscle (Chronic) Osteomyelitis (Chronic) Type 2 diabetes mellitus with diabetic polyneuropathy (Chronic) Localized edema (Chronic) Malnutrition (Chronic) Abscess of left leg (Chronic) Ulcer of right lower extremity with fat layer exposed (Chronic) Ulcer of left lower extremity with fat layer exposed (Chronic) Tobacco user (Chronic) HLD (hyperlipidemia) (Chronic) DM2 (diabetes mellitus, type 2) (Chronic) Depression (Chronic) Chronic low back pain (Chronic) Benign essential HTN (Chronic) Hospital Course and Treatment Imaging Results: Diagnostic Data Ankle X-Ray 08/06/18 12:05 IMPRESSION: No acute bony abnormality. Electronically Signed: Gaston Crandall DO at 15:52 EDT Tel , Service support , Foot X-Ray 08/06/18 12:05 IMPRESSION: Amputated second and third metatarsals. MRI or bone scan would be more sensitive if clinically warranted. Electronically Signed: Thai Manjarrez MD at 18:47 EDT , Service support , Tibia/Fibula X-Ray 08/06/18 12:57 IMPRESSION: Normal x-ray examination of the tibia and fibula. Electronically Signed: Thai Manjarrez MD at 18:45 EDT , Service support , Chest X-Ray 08/08/18 04:30 IMPRESSION: Interval decrease in interstitial edema, bibasilar consolidation and effusions Electronically Signed: John Craven DO at 5:11 EDT Tel , Service support , Renal Ultrasound 08/08/18 05:55 IMPRESSION: Numerous cysts are noted of the kidneys. Electronically Signed: Pierre Gomez DO at 22:20 EDT Tel [phone], Service support , Consultations 08/05/18 17:08 Consult: Onc/Wound/decision support analyst Routine Comment: Dr. Dotson- Podiatry Dr. Ponce-Cardiology Dr. Black-Nephrology Operations: None Procedures: None Summary of Care Provided: The patient is a 63 year old M admitted 08/05/2018 due to low blood pressure and hallucinations. 1. Acute on chronic systolic CHF with anasarca-chest x-ray on admission showed bilateral pleural effusions. Echocardiogram May 2018 showed an EF of 50%, moderately severe mitral valve insufficiency, moderate tricuspid valve insufficiency, RVSP estimated to be 67 mmHg, severe pulmonary hypertension. Cardiology consulted. Placed on Lasix drip during admission. Cardizem discontinued. Patient down approximately 20 pounds since admission. Repeat CXR morning showed decreased interstitial edema, bibasilar consolidation and effusions. Patient will be started on Bumex 2 mg daily at discharge. 2. Acute encephalopathy-unclear etiology. Resolved. Urine and blood cultures negative. Blood gas and ammonia within normal limits. Recommend outpatient follow up with geriatrics. 3. Acute kidney injury on chronic kidney disease stage III-suspect secondary to urinary retention. Continue bustillo. Creatinine improved. US kidney without hydronephrosis. Bilateral cysts. BMP Q Week. 4. Paroxysmal atrial fibrillation with supratherapeutic INR on admission- continue atenolol, reduced to once daily. Resume Coumadin. Coumadin initially held on admission due to supratherapeutic INR. INR weekly. 5. Chronic extensive wounds including bilateral lower extremities, right greater than left, ischial and sacral-frequent position changes. Dr. Dotson consulted. Wounds present on admission. History of multiple organisms and wound cultures. History of osteomyelitis. Wound culture right foot showing Pseudomonas and citrobacter. IV unasyn and IV vanc discontinued. ID consulted. Continue PO levaquin and flagyl per ID recommendations for total of 10 days. Recommend outpatient follow up with vascular surgery for suspected chronic vascular disease. Dressing changes as ordered: wet to dry dakin's with gauze, kerlix, abd pads and mario BLLE. Change BID. Follow up with Dr. Dotson and Wound Center at discharge. Follows with wound center weekly. 6. Hypertension-Cardizem discontinued. Atenolol regimen decreased to once daily. 7. Hyperlipidemia-continue statin. 8. Type 2 diabetes mellitus-continue home regimen. Hemoglobin A1c 6%. 9. Chronic iron deficiency anemia/anemia of chronic nfkqlsi-ilebpw-cfmbk CBC weekly. 10. History of CVA with mild left hemiparesis-continue aspirin, statin. PT/OT. 11. Debility/weakness-resides at SNF. Reported to use Swapnil lift. Unable to ambulate. PT/OT. 12. Depression-continue home paroxetine regimen. 13. Protein calorie malnutrition-continue nutritional supplementations. 14. Obesity-nutrition consult for dietary recommendations. General: Alert, Oriented x3, Cooperative, No apparent distress HEENT: Atraumatic, PERRLA, EOMI, Normocephalic Neck: Supple, No JVD, Negative Carotid Bruits Lungs: Clear to auscultation, Diminished Cardiovascular: - - Atrial fibrillation, rate controlled Abdomen: Bowel Sounds Present, Soft, Non Tender, Non-Distended, Obese Extremities: No clubbing, No cyanosis, - - Edema - Abdominal, bilateral upper thigh +2 Skin: - - Extensive bilateral lower extremity wounds, right greater than left. Bilateral upper extremity scabbing secondary to picking. Musculoskeletal: No Tenderness to Palpation of Joints or Extremities Neurological: Cranial nerves II-XII grossly intact, Neuro grossly intact Psych/Mental Status: Normal Affect, Appropriate Patient seen exam prior to discharge. Physical assessment as noted above. Patient stable for discharge to SNF with the follow-up recommendations as noted above. This patient was seen by NADINE Chow under the supervision of Dr. Solorzano. Home Medications: Medications to take at Discharge Aspirin [Adult Aspirin] 81 mg PO DAILY 06/07/18 Cholecalciferol (VIT D3) [Vitamin D3] 1,000 unit PO DAILY 06/07/18 Acetaminophen [Tylenol Tablet] 650 mg PO Q6H PRN PRN tablet 06/14/18 Ascorbic Acid [Vitamin C] 500 mg PO BIDCM tablet 06/14/18 Tamsulosin HCl [Flomax] 0.4 mg PO DAILY@1730 capsule 06/14/18 Zinc Sulfate (50mg elemental) [Zinc Sulfate] 220 mg PO DAILY capsule 06/14/18 Argin/Glut/Cahmb/Collag/Mv-Min [Juan Packet] 1 each PO BID 08/05/18 Atorvastatin Calcium [Lipitor] 10 mg PO QHS 08/05/18 Famotidine 20 mg PO DAILY 08/05/18 Insulin Lispro [Humalog] See Protocol SQ 4X/DAY 08/05/18 Multivitamins,Ther W-Minerals [Multivitamin With Minerals] 1 tablet PO DAILY Paroxetine HCl [Paxil] 40 mg PO DAILY 08/05/18 Warfarin [Coumadin] 6 mg PO DAILY 08/05/18 glipiZIDE [Glucotrol] 10 mg PO DAILY@0730 08/05/18 Atenolol [Tenormin (beta dilia)] 50 mg PO DAILY tablet 08/10/18 Bumetanide [Bumex] 2 mg PO DAILY tablet 08/10/18 Ferrous Sulfate 325 mg PO BIDCM tablet 08/10/18 Metronidazole [Flagyl] 500 mg PO TID tablet 08/10/18 Potassium Chloride [K-Dur] 40 meq PO BIDCM tablet 08/10/18 Sodium Hypochlorite [Dakins Solution 0.25% (1/2 Strength)] 1 applic TOPICAL BID bottle 08/10/18 Spironolactone [Aldactone] 25 mg PO DAILY tablet 08/10/18 levoFLOXacin tablet [Levaquin tablet] 750 mg PO DAILY@0600 tablet 08/10/18 Primary Care Physician: Hong Sparks MD [Primary Care Provider] - Please follow up with your Primary Care Physician in: 1 Week Please Follow Up With: Mando Ponce MD - May see [employer]/PA When: 1-2 Weeks Please Follow Up With: Patty Black DO When: 2 Weeks Please Follow Up With: Wound Center When: Weekly, as scheduled Please Follow Up With: Jack Dotson DPM When: 1 Week Disposition: Halfway facility Minutes spent on discharge:: 35 Patient Condition:: Stable Medical Necessity - Tobacco Use Smoking Status: Former smoker Tobacco Use: Cigarettes Meaningful Use Info Meaningful Use Diagnoses (Choose all that apply): CHF - CHF MARIO/ARB ordered at discharge?: No Reason MARIO/ARB not ordered?: Worsening renal function Documented LVEF (%): 50 <Wilner Solorzano - Last Filed: 08/10/18 16:45> Discharge Date and Diagnosis - Secondary Discharge Diagnosis Chronic Problems 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 Anticipate Stage III or IV if excision done. Right ischial pressure sore, stage 2 (Chronic) at least a Stage II. Anticipate Stage III or IV if excision done. Pressure ulcer of sacral region, stage 2 (Chronic) at least a Stage II. Anticipate Stage III or IV if excision done. 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) Ulcer of right foot with necrosis of muscle (Chronic) Osteomyelitis (Chronic) Type 2 diabetes mellitus with diabetic polyneuropathy (Chronic) Localized edema (Chronic) Malnutrition (Chronic) Abscess of left leg (Chronic) Ulcer of right lower extremity with fat layer exposed (Chronic) Ulcer of left lower extremity with fat layer exposed (Chronic) Tobacco user (Chronic) HLD (hyperlipidemia) (Chronic) DM2 (diabetes mellitus, type 2) (Chronic) Depression (Chronic) Chronic low back pain (Chronic) Benign essential HTN (Chronic) Hospital Course and Treatment Consultations 08/05/18 17:08 Consult: Onc/Wound/decision support analyst Routine Comment: Operations: None Procedures: None Summary of Care Provided: Patient seen and examined independently. Data reviewed. I agree with the above note by the nurse practitioner. The patient is a 63 year old M presents with acute exacerbation of CHF. Patient was put on a Lasix drip and did diurese well. Patient was seen in consultation by cardiology as well as nephrology. Patient did have a period of confusion but that was further evaluated and workup was unremarkable. As for the patient's confusion was likely related with just sleep deprivation while he was here. [] Discharge Diet: 6 Cup Fluid Restriction, 2000 mg Sodium Diet Discharge Activity: Return to Normal Activity Disposition: Halfway facility Minutes spent on discharge:: 35 Patient Condition:: Stable Meaningful Use Info Meaningful Use Diagnoses (Choose all that apply): CHF - CHF MARIO/ARB ordered at discharge?: No Reason MARIO/ARB not ordered?: Worsening renal function Documented LVEF (%): 50 Code Visit Inpatient E&M: 80018 Disch Hosp
[2018-08-10 11:20] LABS: Bedside Glucose 249 mg/dL (70-110)
--- NOTE | 2018-08-10 11:59 | PN.ID_ITS ---
Subjective: Discharge planned, no fever, no side effects from abx - Physical Exam General: Cooperative, No apparent distress Lungs: Clear to auscultation, Normal air movement Cardiovascular: Regular rate, Regular Rhythm Abdomen: Soft, Non Tender, Non-Distended Skin: Ulcer/ Wound - foot wrapped Vital Signs Temp Pulse Resp BP Pulse Ox 98.5 F 85 16 112/73 97 08/10/18 09:15 08/10/18 11:00 08/10/18 09:15 08/10/18 09:15 08/10/18 09:15 Oxygen Flow Rate (L/min) 2 Oxygen Delivery Method Room Air Weight: 104 kg Body Mass Index (BMI) 32.0 Intake and Output for Last 24 Hours 08/08/18 08/09/18 08/10/18 23:59 23:59 23:59 Intake Total 2557.5 / 2557.5 1368.7 / 1368.7 484.3 / 484.3 Output Total 7800 / 7800 7885 / 7885 1525 / 1525 Balance -5242.5 / -5242.5 -6516.3 / -6516.3 -1040.7 / -1040.7 Microbiology Past 72 Hours 08/06/18 12:09 Gram Stain - Final Wound - Right Foot Wound Culture - Final Pseudomonas aeroginosa Citrobacter freundii Anaerobic Culture - Final No anaerobic bacteria isolated. 08/05/18 16:11 Urine Culture - Final Urine, Catheterized Culture exhibits no growth. 08/05/18 18:15 Blood Culture - Preliminary Blood Culture (Wb) - No Site/Description Given No growth in 48 hours. Laboratory Tests Past 24 Hrs 08/09/18 08/10/18 08/10/18 15:30 06:12 06:12 PT 18.2 H 18.0 H INR 1.5 1.5 Sodium 142 Potassium 3.1 L Chloride 94 L Carbon Dioxide 39.0 H BUN 58 H Creatinine 1.41 H Estim Creat Clear Calc 61.54 Est GFR (MDRD) Af Amer 65 Est GFR (MDRD) Non-Af 54 L BUN/Creatinine Ratio 41.1 H Glucose 159 H Calcium 8.1 L Phosphorus 1.3 L Albumin 2.3 L POC Glucose 08/10/18 08/10/18 08/09/18 11:05 06:37 21:09 POC Glucose 249 H 157 H 184 H 09/18/18 16:41 POC Glucose 138 H Medical Necessity - Tobacco Use Smoking Status: Former smoker Tobacco Use: Cigarettes Route of nutrition/ use of supplements: [] Nutritional Intake: [] IV Site: [] Aponte Catheter: [] - Assessment/Plan Antibiotics: [] Assessment/Plan: [] Recent RLE gangrene with pasteurella bacteremia - overall RLE much improved. No fever or leukocytosis here. Did have wound cx done which is showing PsA and citrobacter. On po levaquin/flagyl. Last qtc was WNL. Plan on 10 day course of these po abx. Will follow, d/w telephonic nurse case manager
--- NOTE | 2018-08-10 12:59 | CASEMGMT ---
Patient is ready for d/c back to [facility]. YUMIKO faxed orders to [facility]. Called [facility] and arranged for patient to get picked up at via cot. YUMIKO notified Angelica at [facility], RN, patient, and his . Plan: d/c back to [facility] under skilled level of care. [facility] transported him via cot. Janice BOWLES
--- NOTE | 2018-08-10 13:13 | NURSING ---
report called to Cheryl MALCOLM at [facility]
== END 2018-08-10 14:48 | disposition skilled nursing facility (03) | DRG 291 ==
LOC: ED 15:51 → PCU 15:58
PROVIDERS: Family Medicine; Hospitalist; Internal Medicine Nephrology; Nurse Practitioner Family; Podiatrist; Admitting Provider Family Medicine; Emergency Provider Emergency Medicine; Family Provider Family Medicine; PCP Family Medicine
DX: I13.0 Hypertensive heart and chronic kidney disease with heart failure and stage 1 through stage 4 chronic kidney disease, or unspecified chronic kidney disease (principal); G93.40 Encephalopathy, unspecified; I50.23 Acute on chronic systolic (congestive) heart failure; E43 Unspecified severe protein-calorie malnutrition; I69.354 Hemiplegia and hemiparesis following cerebral infarction affecting left non-dominant side; N17.9 Acute kidney failure, unspecified; L97.823 Non-pressure chronic ulcer of other part of left lower leg with necrosis of muscle; L97.813 Non-pressure chronic ulcer of other part of right lower leg with necrosis of muscle; E11.42 Type 2 diabetes mellitus with diabetic polyneuropathy; Z79.4 Long term (current) use of insulin; Z68.32 Body mass index [BMI] 32.0-32.9, adult; N40.0 Benign prostatic hyperplasia without lower urinary tract symptoms; I48.0 Paroxysmal atrial fibrillation; R79.1 Abnormal coagulation profile; Z79.01 Long term (current) use of anticoagulants; Z87.891 Personal history of nicotine dependence; E78.5 Hyperlipidemia, unspecified; E11.22 Type 2 diabetes mellitus with diabetic chronic kidney disease; N18.3 Chronic kidney disease, stage 3 (moderate); I27.20 Pulmonary hypertension, unspecified; F32.9 Major depressive disorder, single episode, unspecified; E66.9 Obesity, unspecified; L89.322 Pressure ulcer of left buttock, stage 2; L89.312 Pressure ulcer of right buttock, stage 2; I42.9 Cardiomyopathy, unspecified; Z83.3 Family history of diabetes mellitus; Z89.421 Acquired absence of other right toe(s); D50.9 Iron deficiency anemia, unspecified; D63.8 Anemia in other chronic diseases classified elsewhere
CPT/HCPCS: 36592; 36600; 51702; 71045; 73590; 73610; 73630; 76770; 80048; 80053; 80061; 80069; 80076; 81001; 82140; 82570; 82607; 82728; 82746; 82803; 82962; 83036; 83540; 83550; 83605; 83690; 83735; 83880; 84300; 84439; 84443; 84484; 85025; 85027; 85610; 87040; 87070; 87075; 87077; 87086; 87184; 87186; 87205; 87640; 93005; 94762; 97110; 97162; 97166; 97530; 97535; 97802; 99251; 99285; J1756; J7030; J7040; A4216; G0463; J0295; J1940

== ENCOUNTER 2018-08-17 15:45 | Outpatient (RCR) | payer OTHER, SELFPAY ==
[2018-07-23 01:52] VITALS: BP 121/75; PULSE 110; RESP 22; TEMP 36.6
[2018-07-27 10:32] VITALS: BP 106/68; PULSE 98; RESP 18; TEMP 36
--- NOTE | 2018-07-27 14:50 | PN.PCM_ITS ---
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 Current Visit: Yes Code(s): L97.513 - Non-pressure chronic ulcer of other part of right foot with necrosis of muscle (2) Ulcer of left lower extremity with fat layer exposed Status: Chronic Current Visit: Yes Code(s): L97.922 - Non-pressure chronic ulcer of unspecified part of left lower leg with fat layer exposed (3) Ulcer of right lower extremity with fat layer exposed Status: Chronic Current Visit: Yes Code(s): L97.912 - Non-pressure chronic ulcer of unspecified part of right lower leg with fat layer exposed (4) PVD (peripheral vascular disease) Status: Suspected Current Visit: Yes Code(s): I73.9 - Peripheral vascular disease, unspecified (5) Osteomyelitis Status: Chronic Current Visit: Yes Code(s): M86.9 - Osteomyelitis, unspecified (6) Type 2 diabetes mellitus with diabetic polyneuropathy Status: Chronic Current Visit: Yes Code(s): E11.42 - Type 2 diabetes mellitus with diabetic polyneuropathy (7) Localized edema Status: Chronic Current Visit: Yes Code(s): R60.0 - Localized edema (8) Malnutrition Status: Chronic Current Visit: Yes Code(s): E46 - Unspecified protein- calorie malnutrition (9) Tobacco user Status: Chronic Current Visit: Yes Code(s): Z72.0 - Tobacco use Type of Wound Date of Service: 07/28/18 Chief Complaint: Leg wounds and right foot wound History of Wound: This 63-year-old male with multiple comorbidities was seen today for follow-up of bilateral leg wounds and right foot wound. He is previously known to me during his last admission at [facility] on 06/07/2018. He was admitted for bilateral lower extremity abscesses infection osteomyelitis with sepsis and acute renal failure. He was taken for emergent surgical intervention followed by serial debridement and irrigation on 06/10/2018. He has not [facility]. He has an arterial Doppler scheduled for August 02, 2018. He reports decreased leg pain, or swelling. He denies fever, chill, nausea, vomiting. He takes a nutrition supplement. He presents today with his . Progress of Wound: Stable - Physical Exam Vital Signs Temp Pulse Resp BP 96.8 F L 98 18 106/68 07/27/18 10:32 07/27/18 10:32 07/27/18 10:32 07/27/18 10:32 General: Alert, Oriented x3, Cooperative Extremities: No cyanosis, No edema, Capillary Refill Less than 3 Seconds, No Calf Tenderness, Diminished Peripheral Pulses Skin: Ulcer/ Wound - No purulence, no erythema, streaking, odor, no progressive acute infection bilateral. There is exposed deep tissue to the right foot and his ray resection sites. There is some epithelialization to bilateral leg lateral wounds that is partial. His skin is atrophic and hairless. Wound Measurements and Assessment WC - Nurse 1 - General Ulcer Measurement Start: 07/27/18 10:32 Freq: Status: Active Protocol: Activity Type Activity Date Activity User E-Sign Co-Sign Detail Recorded Client Recorded Date Recorded By Document 07/27/18 10:32 [facility] [id number] 07/27/18 11:09 [facility] 07/27/18 10:32 Wound Center Nurse 1 [Ulcer Assessment] #8 r Knee -Combined with other wound No -Current Size (cm) - Length 1.6 -Current Size (cm) - Width 2.1 -Current Size (cm) - Depth 0.2 -Total Square Cm 3.36 -Photo Taken No -Epithelialization None Present -Tunneling No -Undermining/Tunneling No -Circular Undermining No -Exudate Amt Large (67-100%) -Exudate Type Serosanguineous -Wound Margin Distinct, Outline Attached -Slough/Fibrin Yes -Necrosis Amt Large (67-100%) -Necrotic Tissue Type Adherent Slough -Texture (Lisa-wound Skin Appearance) No Abnormality Assessed Scarring -Moisture (Lisa-wound Skin Appearance No Abnormality ) Assessed Dry/Scaly -Color (Lisa-wound Skin Appearance) No Abnormality Assessed Hemosiderin Staining -Temperature (Lisa-wound Skin No Abnormality Appearance) (Pt Warm) #7 L Lat LE Cluster -Current Size (cm) - Length 20.5 -Current Size (cm) - Width 12.3 -Current Size (cm) - Depth 0.2 -Total Square Cm 252.15 -Epithelialization None Present -Tunneling No -Undermining/Tunneling No -Circular Undermining No -Exudate Amt Large (67-100%) -Exudate Type Serosanguineous -Wound Margin Distinct, Outline Attached -Granulation Amt Medium (34-66%) -Granulation Quality Red -Necrosis Amt Medium (34-66%) -Necrotic Tissue Type Adherent Slough -Structure Exposed N/A -Texture (Lisa-wound Skin Appearance) No Abnormality Assessed Scarring -Moisture (Lisa-wound Skin Appearance No Abnormality ) Assessed Dry/Scaly -Color (Lisa-wound Skin Appearance) No Abnormality Assessed Hemosiderin Staining -Temperature (Lisa-wound Skin No Abnormality Appearance) (Pt Warm) -Ulcer Cleansing Wound Cleanser -Foul Odor after Cleansing No -Anesthetic Used 4% Lidocaine Solution #6 L Post -Current Size (cm) - Length 22.5 -Current Size (cm) - Width 4.7 -Current Size (cm) - Depth 0.1 -Total Square Cm 105.75 -Epithelialization None Present -Undermining/Tunneling No -Circular Undermining No -Exudate Amt Large (67-100%) -Exudate Type Serosanguineous -Wound Margin Distinct, Outline Attached -Granulation Amt Large (67-100%) -Granulation Quality Red -Necrosis Amt Small (1-33%) -Necrotic Tissue Type Adherent Slough -Texture (Lisa-wound Skin Appearance) No Abnormality Assessed Scarring -Moisture (Lisa-wound Skin Appearance No Abnormality ) Assessed Dry/Scaly -Color (Lisa-wound Skin Appearance) No Abnormality Assessed Hemosiderin Staining -Temperature (Lisa-wound Skin No Abnormality Appearance) (Pt Warm) -Tenderness on Palpation (Lisa-wound No Skin Appearance) -Ulcer Cleansing Wound Cleanser -Foul Odor after Cleansing No -Anesthetic Used 4% Lidocaine Solution #5 R Lat LE -Current Size (cm) - Length 6.2 -Current Size (cm) - Width 4.2 -Current Size (cm) - Depth 0.2 -Total Square Cm 26.04 -Photo Taken No -Epithelialization None Present -Tunneling No -Undermining/Tunneling No -Circular Undermining No -Exudate Amt Large (67-100%) -Exudate Type Serosanguineous -Granulation Amt None Present (0 %) -Necrosis Amt Small (1-33%) -Necrotic Tissue Type Adherent Slough -Texture (Lisa-wound Skin Appearance) Assessed Scarring -Moisture (Lisa-wound Skin Appearance Assessed ) Maceration Dry/Scaly -Color (Lisa-wound Skin Appearance) Hemosiderin Staining -Temperature (Lisa-wound Skin No Abnormality Appearance) (Pt Warm) -Tenderness on Palpation (Lisa-wound No Skin Appearance) -Ulcer Cleansing Wound Cleanser -Anesthetic Used 4% Lidocaine Solution #4 R post LE -Combined with other wound No -Current Size (cm) - Length 5.0 -Current Size (cm) - Width 1.8 -Current Size (cm) - Depth 0.5 -Total Square Cm 9.00 -Photo Taken No -Epithelialization None Present -Tunneling No -Undermining/Tunneling No -Circular Undermining No -Exudate Amt Large (67-100%) -Exudate Type Serosanguineous -Wound Margin Distinct, Outline Attached -Granulation Amt Small (1-33%) -Granulation Quality Pale [place] -Slough/Fibrin Yes -Necrosis Amt Large (67-100%) -Necrotic Tissue Type Adherent Slough -Structure Exposed Tendon -Texture (Lisa-wound Skin Appearance) Assessed Scarring -Moisture (Lisa-wound Skin Appearance Assessed ) Maceration Dry/Scaly -Color (Lisa-wound Skin Appearance) Assessed Hemosiderin Staining -Temperature (Lisa-wound Skin No Abnormality Appearance) (Pt Warm) -Tenderness on Palpation (Lisa-wound No Skin Appearance) -Ulcer Cleansing Wound Cleanser -Foul Odor after Cleansing No -Anesthetic Used 4% Lidocaine Solution #3 R Med LE -Combined with other wound No -Current Size (cm) - Length 3.0 -Current Size (cm) - Width 2.8 -Current Size (cm) - Depth 0.1 -Total Square Cm 8.40 -Photo Taken No -Epithelialization None Present -Tunneling No -Undermining/Tunneling No -Circular Undermining No -Exudate Amt Large (67-100%) -Exudate Type Serosanguineous -Wound Margin Distinct, Outline Attached -Granulation Amt Large (67-100%) -Granulation Quality [place] -Slough/Fibrin No -Necrosis Amt None Present (0 %) -Texture (Lisa-wound Skin Appearance) Assessed Scarring -Moisture (Lisa-wound Skin Appearance Assessed ) Dry/Scaly -Color (Lisa-wound Skin Appearance) Hemosiderin Staining -Temperature (Lisa-wound Skin No Abnormality Appearance) (Pt Warm) -Tenderness on Palpation (Lisa-wound No Skin Appearance) -Ulcer Cleansing Wound Cleanser -Foul Odor after Cleansing No -Anesthetic Used 4% Lidocaine Solution #2 R [place] Cluster -Combined with other wound No -Current Size (cm) - Length 23.0 -Current Size (cm) - Width 5.3 -Current Size (cm) - Depth 0.2 -Total Square Cm 121.90 -Photo Taken No -Epithelialization None Present -Tunneling No -Undermining/Tunneling No -Circular Undermining No -Exudate Amt Large (67-100%) -Exudate Type Serosanguineous -Wound Margin Distinct, Outline Attached -Granulation Amt Medium (34-66%) -Granulation Quality Red -Slough/Fibrin Yes -Necrosis Amt Medium (34-66%) -Necrotic Tissue Type Adherent Slough -Texture (Lisa-wound Skin Appearance) Assessed Scarring -Moisture (Lisa-wound Skin Appearance Assessed ) Dry/Scaly -Color (Lisa-wound Skin Appearance) Assessed Hemosiderin Staining -Temperature (Lisa-wound Skin No Abnormality Appearance) (Pt Warm) -Tenderness on Palpation (Lisa-wound No Skin Appearance) -Ulcer Cleansing Wound Cleanser -Foul Odor after Cleansing No -Anesthetic Used 4% Lidocaine Solution #1 R 2nd toe amp/Arch/ Med Ankle -Current Size (cm) - Length 39.3 -Current Size (cm) - Width 5.3 -Current Size (cm) - Depth 2.2 -Total Square Cm 208.29 -Photo Taken No -Epithelialization None Present -Tunneling No -Undermining/Tunneling No -Circular Undermining No -Exudate Amt Large (67-100%) -Exudate Type Serosanguineous -Wound Margin Distinct, Outline Attached -Granulation Amt Medium (34-66%) -Granulation Quality Pale [place] -Slough/Fibrin Yes -Necrosis Amt Small (1-33%) -Necrotic Tissue Type Adherent Slough -Texture (Lisa-wound Skin Appearance) Scarring -Moisture (Lisa-wound Skin Appearance Maceration ) Dry/Scaly -Color (Lisa-wound Skin Appearance) Hemosiderin Staining -Temperature (Lisa-wound Skin No Abnormality Appearance) (Pt Warm) -Ulcer Cleansing Wound Cleanser -Foul Odor after Cleansing No -Anesthetic Used 4% Lidocaine Solution [Edema Assessment] -Point of measurement (cm from the 37.3 medial instep) -Point of Measurement (cm from the 23.8 medial instep) -Left Calf (cm) 36.0 -Left Ankle (cm) 22.1 WC - Nurse 2 - General Ulcer CM Notes Start: 07/27/18 10:32 Freq: Status: Active Protocol: Activity Type Activity Date Activity User E-Sign Co-Sign Detail Recorded Client Recorded Date Recorded By Document 07/27/18 11:22 JAMAL [id number] 07/27/18 11:32 JAMAL 07/27/18 11:22 Wound Center Nurse 2 [Procedure/Treatment] #8 r Knee -Time 11:24 -Correct Patient Yes -Correct Side, Site, Position Yes -Correct Procedure Yes -Procedure Performed Yes -Type of Procedure Debridement -Clinical Debridement Subcutaneous -Post Debridement Size (cm) - Length 1.6 -Post Debridement Size (cm) - Width 2.2 -Post Debridement Size (cm) - Depth 0.2 -Total Square Cm 3.52 -Wound/Ulcer Outcome Not Healed -Ulcer Cleansing Rinsed/ Irrigated with Saline -Foul Odor after Cleansing No -Bioengineered Tissue No -Bleeding Controlled with Pressure -Treatment Response Procedure Tolerated Well #7 L Lat LE Cluster -Time 11:28 -Correct Patient Yes -Correct Side, Site, Position Yes -Correct Procedure Yes -Procedure Performed Yes -Type of Procedure Debridement -Clinical Debridement Subcutaneous -Post Debridement Size (cm) - Length 20.6 -Post Debridement Size (cm) - Width 12.3 -Post Debridement Size (cm) - Depth 0.2 -Total Square Cm 253.38 -Wound/Ulcer Outcome Not Healed -Ulcer Cleansing Rinsed/ Irrigated with Saline -Foul Odor after Cleansing No -Bioengineered Tissue No -Bleeding Controlled with Pressure -Treatment Response Procedure Tolerated Well #6 L Post -Time 11:29 -Correct Patient Yes -Correct Side, Site, Position Yes -Correct Procedure Yes -Procedure Performed Yes -Type of Procedure Debridement -Clinical Debridement Subcutaneous -Post Debridement Size (cm) - Length 22.5 -Post Debridement Size (cm) - Width 4.8 -Post Debridement Size (cm) - Depth 0.1 -Total Square Cm 108.00 -Wound/Ulcer Outcome Not Healed -Ulcer Cleansing Rinsed/ Irrigated with Saline -Foul Odor after Cleansing No -Bioengineered Tissue No -Bleeding Controlled with Pressure -Treatment Response Procedure Tolerated Well #5 R Lat LE -Time 11:29 -Correct Patient Yes -Correct Side, Site, Position Yes -Correct Procedure Yes -Procedure Performed Yes -Type of Procedure Debridement -Clinical Debridement Subcutaneous -Post Debridement Size (cm) - Length 6.3 -Post Debridement Size (cm) - Width 4.3 -Post Debridement Size (cm) - Depth 0.2 -Total Square Cm 27.09 -Wound/Ulcer Outcome Not Healed -Ulcer Cleansing Rinsed/ Irrigated with Saline -Foul Odor after Cleansing No -Bioengineered Tissue No -Bleeding Controlled with Pressure -Treatment Response Procedure Tolerated Well #4 R post LE -Time 11:29 -Correct Patient Yes -Correct Side, Site, Position Yes -Correct Procedure Yes -Procedure Performed Yes -Type of Procedure Debridement -Clinical Debridement Subcutaneous -Post Debridement Size (cm) - Length 5.1 -Post Debridement Size (cm) - Width 1.9 -Post Debridement Size (cm) - Depth 0.5 -Total Square Cm 9.69 -Wound/Ulcer Outcome Not Healed -Ulcer Cleansing Rinsed/ Irrigated with Saline -Foul Odor after Cleansing No -Bioengineered Tissue No -Bleeding Controlled with Pressure -Treatment Response Procedure Tolerated Well #3 R Med LE -Time 11:30 -Correct Patient Yes -Correct Side, Site, Position Yes -Correct Procedure Yes -Procedure Performed Yes -Type of Procedure Debridement -Clinical Debridement Subcutaneous -Post Debridement Size (cm) - Length 3.1 -Post Debridement Size (cm) - Width 2.8 -Post Debridement Size (cm) - Depth 0.1 -Total Square Cm 8.68 -Wound/Ulcer Outcome Not Healed -Ulcer Cleansing Rinsed/ Irrigated with Saline -Foul Odor after Cleansing No -Bioengineered Tissue No -Bleeding Controlled with Pressure -Treatment Response Procedure Tolerated Well #2 R [place] Cluster -Time 11:30 -Correct Patient Yes -Correct Side, Site, Position Yes -Correct Procedure Yes -Procedure Performed Yes -Type of Procedure Debridement -Clinical Debridement Subcutaneous -Post Debridement Size (cm) - Length 23.1 -Post Debridement Size (cm) - Width 5.3 -Post Debridement Size (cm) - Depth 0.2 -Total Square Cm 122.43 -Wound/Ulcer Outcome Not Healed -Ulcer Cleansing Rinsed/ Irrigated with Saline -Foul Odor after Cleansing No -Bioengineered Tissue No -Bleeding Controlled with Pressure -Treatment Response Procedure Tolerated Well #1 R 2nd toe amp/Arch/ Med Ankle -Time 11:31 -Correct Patient Yes -Correct Side, Site, Position Yes -Correct Procedure Yes -Procedure Performed Yes -Type of Procedure Debridement -Clinical Debridement Subcutaneous -Post Debridement Size (cm) - Length 39.5 -Post Debridement Size (cm) - Width 5.3 -Post Debridement Size (cm) - Depth 2.2 -Total Square Cm 209.35 -Wound/Ulcer Outcome Not Healed -Ulcer Cleansing Rinsed/ Irrigated with Saline -Foul Odor after Cleansing No -Bioengineered Tissue No -Bleeding Controlled with Pressure -Treatment Response Procedure Tolerated Well [See Physician Procedure note for Specifics] Pain Scale: 0-10 Numeric [Pain] -Is Patient Pain Free? Yes Neurological: - - Lack of normal epicritic sensation light touch bilateral lower extremities Psych/Mental Status: Normal Affect, Appropriate Debridement Note Post-Debridement Measurements/Treatment WC - Nurse 2 - General Ulcer CM Notes Start: 07/27/18 10:32 Freq: Status: Active Protocol: Activity Type Activity Date Activity User E-Sign Co-Sign Detail Recorded Client Recorded Date Recorded By Document 07/27/18 11:22 JAMAL [id number] 07/27/18 11:32 07/27/18 11:22 Wound Center Nurse 2 #8 r Knee -Time 11:24 -Correct Patient Yes -Correct Side, Site, Position Yes -Correct Procedure Yes -Procedure Performed Yes -Type of Procedure Debridement -Clinical Debridement Subcutaneous -Post Debridement Size (cm) - Length 1.6 -Post Debridement Size (cm) - Width 2.2 -Post Debridement Size (cm) - Depth 0.2 -Total Square Cm 3.52 -Wound/Ulcer Outcome Not Healed -Ulcer Cleansing Rinsed/ Irrigated with Saline -Foul Odor after Cleansing No -Bioengineered Tissue No -Bleeding Controlled with Pressure -Treatment Response Procedure Tolerated Well #7 L Lat LE Cluster -Time 11:28 -Correct Patient Yes -Correct Side, Site, Position Yes -Correct Procedure Yes -Procedure Performed Yes -Type of Procedure Debridement -Clinical Debridement Subcutaneous -Post Debridement Size (cm) - Length 20.6 -Post Debridement Size (cm) - Width 12.3 -Post Debridement Size (cm) - Depth 0.2 -Total Square Cm 253.38 -Wound/Ulcer Outcome Not Healed -Ulcer Cleansing Rinsed/ Irrigated with Saline -Foul Odor after Cleansing No -Bioengineered Tissue No -Bleeding Controlled with Pressure -Treatment Response Procedure Tolerated Well #6 L Post -Time 11:29 -Correct Patient Yes -Correct Side, Site, Position Yes -Correct Procedure Yes -Procedure Performed Yes -Type of Procedure Debridement -Clinical Debridement Subcutaneous -Post Debridement Size (cm) - Length 22.5 -Post Debridement Size (cm) - Width 4.8 -Post Debridement Size (cm) - Depth 0.1 -Total Square Cm 108.00 -Wound/Ulcer Outcome Not Healed -Ulcer Cleansing Rinsed/ Irrigated with Saline -Foul Odor after Cleansing No -Bioengineered Tissue No -Bleeding Controlled with Pressure -Treatment Response Procedure Tolerated Well #5 R Lat LE -Time 11:29 -Correct Patient Yes -Correct Side, Site, Position Yes -Correct Procedure Yes -Procedure Performed Yes -Type of Procedure Debridement -Clinical Debridement Subcutaneous -Post Debridement Size (cm) - Length 6.3 -Post Debridement Size (cm) - Width 4.3 -Post Debridement Size (cm) - Depth 0.2 -Total Square Cm 27.09 -Wound/Ulcer Outcome Not Healed -Ulcer Cleansing Rinsed/ Irrigated with Saline -Foul Odor after Cleansing No -Bioengineered Tissue No -Bleeding Controlled with Pressure -Treatment Response Procedure Tolerated Well #4 R post LE -Time 11:29 -Correct Patient Yes -Correct Side, Site, Position Yes -Correct Procedure Yes -Procedure Performed Yes -Type of Procedure Debridement -Clinical Debridement Subcutaneous -Post Debridement Size (cm) - Length 5.1 -Post Debridement Size (cm) - Width 1.9 -Post Debridement Size (cm) - Depth 0.5 -Total Square Cm 9.69 -Wound/Ulcer Outcome Not Healed -Ulcer Cleansing Rinsed/ Irrigated with Saline -Foul Odor after Cleansing No -Bioengineered Tissue No -Bleeding Controlled with Pressure -Treatment Response Procedure Tolerated Well #3 R Med LE -Time 11:30 -Correct Patient Yes -Correct Side, Site, Position Yes -Correct Procedure Yes -Procedure Performed Yes -Type of Procedure Debridement -Clinical Debridement Subcutaneous -Post Debridement Size (cm) - Length 3.1 -Post Debridement Size (cm) - Width 2.8 -Post Debridement Size (cm) - Depth 0.1 -Total Square Cm 8.68 -Wound/Ulcer Outcome Not Healed -Ulcer Cleansing Rinsed/ Irrigated with Saline -Foul Odor after Cleansing No -Bioengineered Tissue No -Bleeding Controlled with Pressure -Treatment Response Procedure Tolerated Well #2 R [place] Cluster -Time 11:30 -Correct Patient Yes -Correct Side, Site, Position Yes -Correct Procedure Yes -Procedure Performed Yes -Type of Procedure Debridement -Clinical Debridement Subcutaneous -Post Debridement Size (cm) - Length 23.1 -Post Debridement Size (cm) - Width 5.3 -Post Debridement Size (cm) - Depth 0.2 -Total Square Cm 122.43 -Wound/Ulcer Outcome Not Healed -Ulcer Cleansing Rinsed/ Irrigated with Saline -Foul Odor after Cleansing No -Bioengineered Tissue No -Bleeding Controlled with Pressure -Treatment Response Procedure Tolerated Well #1 R 2nd toe amp/Arch/ Med Ankle -Time 11:31 -Correct Patient Yes -Correct Side, Site, Position Yes -Correct Procedure Yes -Procedure Performed Yes -Type of Procedure Debridement -Clinical Debridement Subcutaneous -Post Debridement Size (cm) - Length 39.5 -Post Debridement Size (cm) - Width 5.3 -Post Debridement Size (cm) - Depth 2.2 -Total Square Cm 209.35 -Wound/Ulcer Outcome Not Healed -Ulcer Cleansing Rinsed/ Irrigated with Saline -Foul Odor after Cleansing No -Bioengineered Tissue No -Bleeding Controlled with Pressure -Treatment Response Procedure Tolerated Well Pain Scale: 0-10 Numeric Is Patient Pain Free? Yes Wound debrided: leg posterior Laterality: Right Wound Grade/Stage: grade 1 Type of Debridement: Excisional debridement Anesthesia Used: 4% Lidocaine Solution Depth: in the subcutaneous layer Percentage of wound debrided: 100 Instrument Used: #15 blade Tissue Removed: fibrous, devitalized subcutaneous, biofilm, slough Severity: Fat Layer Exposed Amount of bleeding with debridement: Mild Bleeding Controlled with: Pressure Patient tolerated procedure well - Additional Wound Wound debrided: medial leg Laterality: Right Wound Grade/Stage: grade 1 Type of Debridement: Excisional debridement Anesthesia Used: 4% Lidocaine Solution Depth: in the subcutaneous layer Percentage of wound debrided: 100 Instrument Used: #15 blade Tissue Removed: fibrous, devitalized subcutaneous, biofilm, slough Severity: Limited To Skin Breakdown Amount of bleeding with debridement: Mild Bleeding Controlled with: Pressure Patient tolerated procedure: Patient tolerated procedure well - Additional Wound Wound debrided: lateral leg Laterality: Right Wound Grade/Stage: grade 1 Type of Debridement: Excisional debridement Anesthesia Used: 4% Lidocaine Solution Depth: in the subcutaneous layer Percentage of wound debrided: 100 Instrument Used: #15 blade Tissue Removed: fibrous, devitalized subcutaneous, biofilm, slough Severity: Fat Layer Exposed Amount of bleeding with debridement: Mild Bleeding Controlled with: Pressure Patient tolerated procedure: Patient tolerated procedure well - Additional Wound Wound debrided: foot Laterality: Right Wound Grade/Stage: grade 3 Type of Debridement: Excisional debridement Anesthesia Used: 4% Lidocaine Solution Depth: in the subcutaneous layer Percentage of wound debrided: 100 Instrument Used: #15 blade Tissue Removed: fibrous, devitalized subcutaneous, biofilm, slough Severity: Fat Layer Exposed Amount of bleeding with debridement: Mild Bleeding Controlled with: Pressure Patient tolerated procedure: Patient tolerated procedure well - Additional Wound Wound debrided: lateral leg Laterality: Left Wound Grade/Stage: grade 1 Type of Debridement: Excisional debridement Anesthesia Used: 4% Lidocaine Solution Depth: in the subcutaneous layer Percentage of wound debrided: - - 15 Instrument Used: #15 blade Tissue Removed: fibrous, devitalized subcutaneous, biofilm, slough Severity: Fat Layer Exposed Amount of bleeding with debridement: Mild Bleeding Controlled with: Pressure Patient tolerated procedure: Patient tolerated procedure well - Additional Wound Wound debrided: posterior leg Laterality: Left Wound Grade/Stage: grade 2 Type of Debridement: Excisional debridement Anesthesia Used: 4% Lidocaine Solution Depth: in the subcutaneous layer Percentage of wound debrided: 100 Instrument Used: #15 blade Tissue Removed: fibrous, devitalized subcutaneous, biofilm, slough Severity: Limited To Skin Breakdown Amount of bleeding with debridement: Mild Bleeding Controlled with: Pressure Patient tolerated procedure: Patient tolerated procedure well Assessment/Plan Active Problems Ulcer of right lower extremity with fat layer exposed (Chronic) Ulcer of left lower extremity with fat layer exposed (Chronic) 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 It is also noted he is previous bilateral leg fasciotomies and debridements and irrigation performed 1 month ago. Ulcer right foot and ankle with fat and tendon layer exposed. Ulcer right leg nearly circumferential with fat layer exposed. Ulcer left leg with fat layer exposed. Peripheral vascular disease suspected. Diabetic neuropathy. Malnutrition suspected. 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 Workup for autoimmune disease in process. Delayed healing. Gait impairment and fall risk. Other comorbidities Plan: I reviewed and discussed his case with the patient and the patient's . Subcutaneous debridements were performed as noted in the clinical panel. Recommended changing the dressings daily with alf facility staff assistance. A wound VAC and advanced wound care products will be considered in the future. He was reassured local signs of infection have resolved. He is scheduled for 6 weeks IV antibiotic of Unasyn. Infectious disease was on consult during his last [facility] admission. I recommend he avoids laying directly on his wounds to reduce pressure. And concerned about his perfusion to his limbs and he has an arterial Doppler scheduled with Dr. Morgan's staff on August 02, 2018 and the results are pending. To continue with nutritional supplementation optimize healing; I recommend Juan. I recommend he sustained from smoking and alcohol activities to optimize healing as well. His workup for vasculitis and underlying autoimmune disorder is also pending. A punch biopsy was sent during his last surgical intervention on June 10 and this demonstrated inflammatory changes without malignancy. He had initial screening labs and so far he has a negative RA titer, HL of the 27, KEVIN , anti-CCP, and rheumatoid factor. Several his antibody screenings were not reportable. I will communicate this workup with his current managing physician at [facility], Dr. Perdomo, to see if additional recommendations or workup is indicated. He understands he is high risk for limb loss and his level of perfusion will better clarified after his arterial Doppler which will determine if wound care hyperbaric oxygen combination versus amputation is a better option. He understands his goals are infection prevention, pain control, and functional progression. I answered all his questions. I recommend follow-up at the wound care center 1 week or call sooner if he has any questions.
[2018-08-03 10:17] VITALS: BP 96/61; PULSE 82; RESP 18; TEMP 36.1
--- NOTE | 2018-08-03 12:36 | PCM.WC.PN ---
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 Current Visit: Yes Code(s): L97.513 - Non-pressure chronic ulcer of other part of right foot with necrosis of muscle (3) Ulcer of left lower extremity with fat layer exposed Status: Chronic Current Visit: Yes Code(s): L97.922 - Non-pressure chronic ulcer of unspecified part of left lower leg with fat layer exposed (4) Ulcer of right lower extremity with fat layer exposed Status: Chronic Current Visit: Yes Code(s): L97.912 - Non-pressure chronic ulcer of unspecified part of right lower leg with fat layer exposed (5) PVD (peripheral vascular disease) Status: Suspected Current Visit: Yes Code(s): I73.9 - Peripheral vascular disease, unspecified (6) Osteomyelitis Status: Chronic Current Visit: Yes Code(s): M86.9 - Osteomyelitis, unspecified (7) Type 2 diabetes mellitus with diabetic polyneuropathy Status: Chronic Current Visit: Yes Code(s): E11.42 - Type 2 diabetes mellitus with diabetic polyneuropathy (8) Localized edema Status: Chronic Current Visit: Yes Code(s): R60.0 - Localized edema (9) Malnutrition Status: Chronic Current Visit: Yes Code(s): E46 - Unspecified protein-calorie malnutrition (10) Tobacco user Status: Chronic Current Visit: Yes Code(s): Z72.0 - Tobacco use Type of Wound Date of Service: 08/03/18 Chief Complaint: Leg wounds and right foot wound History of Wound: This 63-year-old male with multiple comorbidities was seen today for follow-up of bilateral leg wounds and right foot wound. He is previously known to me during his last admission at [facility] on 06/07/2018. He was admitted for bilateral lower extremity abscesses infection osteomyelitis with sepsis and acute renal failure. He was taken for emergent surgical intervention followed by serial debridement and irrigation on 06/10/2018. He resides at [facility] at this time. He has an arterial Doppler scheduled for August 02, 2018. He reports decreased leg pain, or swelling. He denies fever, chill, nausea, vomiting. He takes a nutrition supplement. He presents today with his . Progress of Wound: Stable - Physical Exam Vital Signs Temp Pulse Resp BP 97 F L 82 18 96/61 08/03/18 10:17 08/03/18 10:17 08/03/18 10:17 08/03/18 10:17 General: Alert, Oriented x3, Cooperative Extremities: No cyanosis, Capillary Refill Less than 3 Seconds, No Calf Tenderness - Negative Errol and [place] sign bilateral, Diminished Peripheral Pulses, Edema Skin: Ulcer/ Wound - No purulence, no erythema, streaking, odor, no infection bilateral. There is exposed gastrocnemius musculature to the posterior left leg and some exposed plantar fascia layer and posterior tibial tendon on the right lower extremity that has some devitalization, darkening, and dry necrosis consistent with unhealthy tendon. Peripheral skin is atrophic and hairless bilateral lower extremities Wound Measurements and Assessment WC - Nurse 1 - General Ulcer Measurement Start: 07/27/18 10:32 Freq: Status: Active Protocol: Activity Type Activity Date Activity User E-Sign Co-Sign Detail Recorded Client Recorded Date Recorded By Document 08/03/18 10:17 [id number] 08/03/18 10:49 08/03/18 10:17 Wound Center Nurse 1 [Ulcer Assessment] 9.L knee -Combined with other wound No -Current Size (cm) - Length 0.4 -Current Size (cm) - Width 1.1 -Current Size (cm) - Depth 0.2 -Total Square Cm 0.44 -Photo Taken No -Tunneling No -Undermining/Tunneling No -Circular Undermining No -Classification - Thickness Full Thickness without Exposed Support Structure -Exudate Amt Small (1-33%) -Exudate Type Serosanguineous -Wound Margin Distinct, Outline Attached -Granulation Amt Small (1-33%) -Granulation Quality [place] Red -Necrosis Amt Large (67-100%) -Necrotic Tissue Type Adherent Slough -Structure Exposed N/A -Texture (Lisa-wound Skin Appearance) Assessed -Moisture (Lisa-wound Skin Appearance Assessed ) -Color (Lisa-wound Skin Appearance) Assessed -Tenderness on Palpation (Lisa-wound Yes Skin Appearance) -Ulcer Cleansing Rinsed/ Irrigated with Saline -Foul Odor after Cleansing No -Anesthetic Used 4% Lidocaine Solution #8 r Knee -Combined with other wound No -Current Size (cm) - Length 1.6 -Current Size (cm) - Width 1.9 -Current Size (cm) - Depth 0.2 -Total Square Cm 3.04 -Photo Taken No -Tunneling No -Undermining/Tunneling No -Circular Undermining No -Change in Wound Grade/Stage No Query Text:If change please identify the Stage/Grade in the comment (ie. S2 G3) -Exudate Amt Small (1-33%) -Exudate Type Serosanguineous -Wound Margin Thickened -Granulation Amt None Present (0 %) -Slough/Fibrin Yes -Necrosis Amt Large (67-100%) -Necrotic Tissue Type Adherent Slough -Structure Exposed N/A -Texture (Lisa-wound Skin Appearance) Assessed -Moisture (Lisa-wound Skin Appearance Maceration ) -Color (Lisa-wound Skin Appearance) Assessed -Temperature (Lisa-wound Skin No Abnormality Appearance) (Pt Warm) -Tenderness on Palpation (Lisa-wound No Skin Appearance) -Ulcer Cleansing Wound Cleanser -Foul Odor after Cleansing No -Anesthetic Used 4% Lidocaine Solution #7 L Lat LE Cluster -Combined with other wound No -Current Size (cm) - Length 18 -Current Size (cm) - Width 11 -Current Size (cm) - Depth 0.2 -Total Square Cm 198 -Photo Taken No -Tunneling No -Undermining/Tunneling No -Circular Undermining No -Exudate Amt Large (67-100%) -Exudate Type Serosanguineous -Wound Margin Distinct, Outline Attached -Granulation Amt Medium (34-66%) -Granulation Quality Pale -Slough/Fibrin Yes -Necrosis Amt Medium (34-66%) -Necrotic Tissue Type Adherent Slough -Structure Exposed N/A -Texture (Lisa-wound Skin Appearance) Assessed -Moisture (Lisa-wound Skin Appearance No Abnormality ) Maceration -Color (Lisa-wound Skin Appearance) Assessed -Temperature (Lisa-wound Skin No Abnormality Appearance) (Pt Warm) -Tenderness on Palpation (Lisa-wound No Skin Appearance) -Ulcer Cleansing Wound Cleanser -Foul Odor after Cleansing No -Anesthetic Used 4% Lidocaine Solution #6 L Post -Combined with other wound No -Current Size (cm) - Length 23.5 -Current Size (cm) - Width 4.3 -Current Size (cm) - Depth 0.2 -Total Square Cm 101.05 -Photo Taken No -Tunneling No -Undermining/Tunneling No -Circular Undermining No -Exudate Amt Medium (34-66%) -Exudate Type Serosanguineous -Wound Margin Thickened & Rolled Under -Granulation Amt Large (67-100%) -Granulation Quality [place] -Slough/Fibrin Yes -Necrosis Amt Medium (34-66%) -Necrotic Tissue Type Adherent Slough -Structure Exposed N/A -Texture (Lisa-wound Skin Appearance) Assessed -Moisture (Lisa-wound Skin Appearance Maceration ) -Color (Lisa-wound Skin Appearance) Assessed -Temperature (Lisa-wound Skin No Abnormality Appearance) (Pt Warm) -Tenderness on Palpation (Lisa-wound No Skin Appearance) -Ulcer Cleansing Wound Cleanser -Foul Odor after Cleansing No -Anesthetic Used 4% Lidocaine Solution #5 R Lat LE -Combined with other wound No -Current Size (cm) - Length 7 -Current Size (cm) - Width 4.5 -Current Size (cm) - Depth 0.2 -Total Square Cm 31.5 -Photo Taken No -Tunneling No -Undermining/Tunneling No -Circular Undermining No -Exudate Amt Medium (34-66%) -Exudate Type Serosanguineous -Wound Margin Thickened & Rolled Under -Granulation Amt Small (1-33%) -Granulation Quality Pale [place] -Slough/Fibrin Yes -Necrosis Amt Large (67-100%) -Necrotic Tissue Type Adherent Slough -Structure Exposed N/A -Texture (Lisa-wound Skin Appearance) Assessed -Moisture (Lisa-wound Skin Appearance Assessed ) Maceration -Color (Lisa-wound Skin Appearance) Assessed -Temperature (Lisa-wound Skin No Abnormality Appearance) (Pt Warm) -Tenderness on Palpation (Lisa-wound No Skin Appearance) -Ulcer Cleansing Wound Cleanser -Foul Odor after Cleansing No -Anesthetic Used 4% Lidocaine Solution #4 R post LE -Combined with other wound No -Current Size (cm) - Length 3 -Current Size (cm) - Width 2.3 -Current Size (cm) - Depth 0.1 -Total Square Cm 6.9 -Photo Taken No -Tunneling No -Undermining/Tunneling No -Circular Undermining No -Exudate Amt Medium (34-66%) -Exudate Type Serosanguineous -Wound Margin Thickened & Rolled Under -Granulation Amt Large (67-100%) -Granulation Quality [place] -Slough/Fibrin Yes -Necrosis Amt Small (1-33%) -Necrotic Tissue Type Adherent Slough -Structure Exposed N/A -Texture (Lisa-wound Skin Appearance) Assessed -Moisture (Lisa-wound Skin Appearance Maceration ) -Color (Lisa-wound Skin Appearance) Assessed -Temperature (Lisa-wound Skin No Abnormality Appearance) (Pt Warm) -Tenderness on Palpation (Lisa-wound No Skin Appearance) -Ulcer Cleansing Wound Cleanser -Foul Odor after Cleansing No -Anesthetic Used 4% Lidocaine Solution #3 R Med LE -Combined with other wound No -Current Size (cm) - Length 4.7 -Current Size (cm) - Width 1.4 -Current Size (cm) - Depth 0.3 -Total Square Cm 6.58 -Photo Taken No -Tunneling No -Undermining/Tunneling No -Circular Undermining No -Exudate Amt Medium (34-66%) -Exudate Type Serosanguineous -Wound Margin Thickened & Rolled Under -Granulation Amt Medium (34-66%) -Granulation Quality Pale [place] -Slough/Fibrin Yes -Necrosis Amt Medium (34-66%) -Necrotic Tissue Type Adherent Slough -Structure Exposed N/A -Texture (Lisa-wound Skin Appearance) Assessed -Moisture (Lisa-wound Skin Appearance Maceration ) -Color (Lisa-wound Skin Appearance) Assessed -Temperature (Lisa-wound Skin No Abnormality Appearance) (Pt Warm) -Tenderness on Palpation (Lisa-wound No Skin Appearance) -Ulcer Cleansing Wound Cleanser -Foul Odor after Cleansing No -Anesthetic Used 4% Lidocaine Solution #2 R [place] Cluster -Combined with other wound No -Current Size (cm) - Length 23.8 -Current Size (cm) - Width 6.3 -Current Size (cm) - Depth 0.2 -Total Square Cm 149.94 -Photo Taken No -Tunneling No -Undermining/Tunneling No -Circular Undermining No -Exudate Amt Small (1-33%) -Exudate Type Serosanguineous -Wound Margin Thickened & Rolled Under -Granulation Amt Medium (34-66%) -Granulation Quality [place] -Slough/Fibrin Yes -Necrosis Amt Medium (34-66%) -Necrotic Tissue Type Adherent Slough -Structure Exposed N/A -Texture (Lisa-wound Skin Appearance) Assessed -Moisture (Lisa-wound Skin Appearance Maceration ) -Color (Lisa-wound Skin Appearance) Assessed -Temperature (Lisa-wound Skin No Abnormality Appearance) (Pt Warm) -Tenderness on Palpation (Lisa-wound No Skin Appearance) -Ulcer Cleansing Wound Cleanser -Anesthetic Used 4% Lidocaine Solution #1 R 2nd toe amp/Arch/ Med Ankle -Combined with other wound No -Current Size (cm) - Length 38.5 -Current Size (cm) - Width 4.3 -Current Size (cm) - Depth 0.7 -Total Square Cm 165.55 -Photo Taken No -Tunneling No -Undermining/Tunneling No -Circular Undermining No -Exudate Amt Medium (34-66%) -Exudate Type Serosanguineous -Wound Margin Thickened & Rolled Under -Granulation Amt Medium (34-66%) -Granulation Quality [place] -Slough/Fibrin Yes -Necrosis Amt Medium (34-66%) -Necrotic Tissue Type Adherent Slough -Structure Exposed N/A -Texture (Lisa-wound Skin Appearance) Assessed -Moisture (Lisa-wound Skin Appearance Assessed ) Maceration -Color (Lisa-wound Skin Appearance) Assessed -Temperature (Lisa-wound Skin No Abnormality Appearance) (Pt Warm) -Tenderness on Palpation (Lisa-wound No Skin Appearance) -Ulcer Cleansing Rinsed/ Irrigated with Saline -Foul Odor after Cleansing No -Anesthetic Used 4% Lidocaine Solution [Edema Assessment] -Lower Limb Edema Present Yes -Right Calf (cm) 37.5 -Right Ankle (cm) 23.4 -Left Calf (cm) 35.2 -Left Ankle (cm) 21.3 WC - Nurse 2 - General Ulcer CM Notes Start: 07/27/18 10:32 Freq: Status: Active Protocol: Activity Type Activity Date Activity User E-Sign Co-Sign Detail Recorded Client Recorded Date Recorded By Document 08/03/18 11:10 [id number] 08/03/18 11:44 08/03/18 11:10 Wound Center Nurse 2 [Procedure/Treatment] 9.L knee -Time 11:12 -Correct Patient Yes -Correct Side, Site, Position Yes -Correct Procedure Yes -Procedure Performed Yes -Post Debridement Size (cm) - Length 0.4 -Post Debridement Size (cm) - Width 1.1 -Post Debridement Size (cm) - Depth 0.2 -Total Square Cm 0.44 -Wound/Ulcer Outcome Not Healed -Ulcer Cleansing Rinsed/ Irrigated with Saline -Foul Odor after Cleansing No -Bioengineered Tissue No -Topical Lidocaine (%) 4 -Bleeding Controlled with Pressure -Other no debridement -Treatment Response Procedure Tolerated Well #8 r Knee -Time 11:12 -Correct Patient Yes -Correct Side, Site, Position Yes -Correct Procedure Yes -Procedure Performed Yes -Post Debridement Size (cm) - Length 1.6 -Post Debridement Size (cm) - Width 1.9 -Post Debridement Size (cm) - Depth 0.2 -Total Square Cm 3.04 -Wound/Ulcer Outcome Not Healed -Ulcer Cleansing Rinsed/ Irrigated with Saline -Foul Odor after Cleansing No -Bioengineered Tissue No -Topical Lidocaine (%) 4 -Bleeding Controlled with Pressure -Other no debridement -Treatment Response Procedure Tolerated Well #7 L Lat LE Cluster -Time 11:13 -Correct Patient Yes -Correct Side, Site, Position Yes -Correct Procedure Yes -Procedure Performed Yes -Type of Procedure Debridement -Clinical Debridement Subcutaneous -Post Debridement Size (cm) - Length 18.1 -Post Debridement Size (cm) - Width 11.1 -Post Debridement Size (cm) - Depth 0.2 -Total Square Cm 200.91 -Wound/Ulcer Outcome Not Healed -Ulcer Cleansing Rinsed/ Irrigated with Saline -Foul Odor after Cleansing No -Bioengineered Tissue No -Topical Lidocaine (%) 4 -Bleeding Controlled with Pressure -Treatment Response Procedure Tolerated Well #6 L Post -Time 11:33 -Correct Patient Yes -Correct Side, Site, Position Yes -Correct Procedure Yes -Procedure Performed Yes -Type of Procedure Debridement -Clinical Debridement Muscle -Post Debridement Size (cm) - Length 23.6 -Post Debridement Size (cm) - Width 4.4 -Post Debridement Size (cm) - Depth 0.2 -Total Square Cm 103.84 -Wound/Ulcer Outcome Not Healed -Ulcer Cleansing Rinsed/ Irrigated with Saline -Foul Odor after Cleansing No -Bioengineered Tissue No -Topical Lidocaine (%) 4 -Bleeding Controlled with Pressure -Treatment Response Procedure Tolerated Well #5 R Lat LE -Time 11:14 -Correct Patient Yes -Correct Side, Site, Position Yes -Correct Procedure Yes -Procedure Performed Yes -Type of Procedure Debridement -Clinical Debridement Subcutaneous -Post Debridement Size (cm) - Length 7.1 -Post Debridement Size (cm) - Width 4.5 -Post Debridement Size (cm) - Depth 0.2 -Total Square Cm 31.95 -Wound/Ulcer Outcome Not Healed -Ulcer Cleansing Rinsed/ Irrigated with Saline -Foul Odor after Cleansing No -Bioengineered Tissue No -Topical Lidocaine (%) 4 -Bleeding Controlled with Pressure -Treatment Response Procedure Tolerated Well #4 R post LE -Time 11:14 -Correct Patient Yes -Correct Side, Site, Position Yes -Correct Procedure Yes -Procedure Performed Yes -Type of Procedure Debridement -Clinical Debridement Subcutaneous -Post Debridement Size (cm) - Length 3.1 -Post Debridement Size (cm) - Width 2.4 -Post Debridement Size (cm) - Depth 0.1 -Total Square Cm 7.44 -Wound/Ulcer Outcome Not Healed -Ulcer Cleansing Rinsed/ Irrigated with Saline -Foul Odor after Cleansing No -Bioengineered Tissue No -Topical Lidocaine (%) 4 -Bleeding Controlled with Pressure -Treatment Response Procedure Tolerated Well #3 R Med LE -Time 11:14 -Correct Patient Yes -Correct Side, Site, Position Yes -Correct Procedure Yes -Procedure Performed Yes -Type of Procedure Debridement -Clinical Debridement Subcutaneous -Post Debridement Size (cm) - Length 4.8 -Post Debridement Size (cm) - Width 1.5 -Post Debridement Size (cm) - Depth 0.3 -Total Square Cm 7.20 -Wound/Ulcer Outcome Not Healed -Ulcer Cleansing Rinsed/ Irrigated with Saline -Foul Odor after Cleansing No -Bioengineered Tissue No -Topical Lidocaine (%) 4 -Bleeding Controlled with Pressure -Treatment Response Procedure Tolerated Well #2 R [place] Cluster -Time 11:14 -Correct Patient Yes -Correct Side, Site, Position Yes -Correct Procedure Yes -Procedure Performed Yes -Type of Procedure Debridement -Clinical Debridement Subcutaneous -Post Debridement Size (cm) - Length 23.9 -Post Debridement Size (cm) - Width 6.4 -Post Debridement Size (cm) - Depth 0.2 -Total Square Cm 152.96 -Wound/Ulcer Outcome Not Healed -Ulcer Cleansing Rinsed/ Irrigated with Saline -Foul Odor after Cleansing No -Bioengineered Tissue No -Topical Lidocaine (%) 4 -Bleeding Controlled with Pressure -Treatment Response Procedure Tolerated Well #1 R 2nd toe amp/Arch/ Med Ankle -Time 11:15 -Correct Patient Yes -Correct Side, Site, Position Yes -Correct Procedure Yes -Procedure Performed Yes -Type of Procedure Debridement -Clinical Debridement Muscle -Post Debridement Size (cm) - Length 38.6 -Post Debridement Size (cm) - Width 4.4 -Post Debridement Size (cm) - Depth 0.7 -Total Square Cm 169.84 -Wound/Ulcer Outcome Not Healed -Ulcer Cleansing Rinsed/ Irrigated with Saline -Foul Odor after Cleansing No -Bioengineered Tissue No -Topical Lidocaine (%) 4 -Bleeding Controlled with Pressure -Treatment Response Procedure Tolerated Well [See Physician Procedure note for Specifics] Pain Scale: 0-10 Numeric [Pain] -Is Patient Pain Free? Yes Musculoskeletal: No Tenderness to Palpation of Joints or Extremities, Muscle Wasting, - - Second and third ray resection is noted right lower extremity Neurological: - - Lack of epicritic sensation light touch Psych/Mental Status: Normal Affect, Appropriate Debridement Note Post-Debridement Measurements/Treatment WC - Nurse 2 - General Ulcer CM Notes Start: 07/27/18 10:32 Freq: Status: Active Protocol: Activity Type Activity Date Activity User E-Sign Co-Sign Detail Recorded Client Recorded Date Recorded By Document 07/27/18 11:22 [id number] 07/27/18 11:32 Document 08/03/18 11:10 [id number] 08/03/18 11:44 07/27/18 08/03/18 11:22 11:10 Wound Center Nurse 2 9.L knee -Time 11:12 -Correct Patient Yes -Correct Side, Site, Position Yes -Correct Procedure Yes -Procedure Performed Yes -Post Debridement Size (cm) - Length 0.4 -Post Debridement Size (cm) - Width 1.1 -Post Debridement Size (cm) - Depth 0.2 -Total Square Cm 0.44 -Wound/Ulcer Outcome Not Healed -Ulcer Cleansing Rinsed/ Irrigated with Saline -Foul Odor after Cleansing No -Bioengineered Tissue No -Topical Lidocaine (%) 4 -Bleeding Controlled with Pressure -Other no debridement -Treatment Response Procedure Tolerated Well #8 r Knee -Time 11:24 11:12 -Correct Patient Yes Yes -Correct Side, Site, Position Yes Yes -Correct Procedure Yes Yes -Procedure Performed Yes Yes -Type of Procedure Debridement -Clinical Debridement Subcutaneous -Post Debridement Size (cm) - Length 1.6 1.6 -Post Debridement Size (cm) - Width 2.2 1.9 -Post Debridement Size (cm) - Depth 0.2 0.2 -Total Square Cm 3.52 3.04 -Wound/Ulcer Outcome Not Healed Not Healed -Ulcer Cleansing Rinsed/ Rinsed/ Irrigated with Irrigated with Saline Saline -Foul Odor after Cleansing No No -Bioengineered Tissue No No -Topical Lidocaine (%) 4 -Bleeding Controlled with Pressure Pressure -Other no debridement -Treatment Response Procedure Procedure Tolerated Well Tolerated Well #7 L Lat LE Cluster -Time 11: 11:13 -Correct Patient Yes Yes -Correct Side, Site, Position Yes Yes -Correct Procedure Yes Yes -Procedure Performed Yes Yes -Type of Procedure Debridement Debridement -Clinical Debridement Subcutaneous Subcutaneous -Post Debridement Size (cm) - Length 20.6 18.1 -Post Debridement Size (cm) - Width 12.3 11.1 -Post Debridement Size (cm) - Depth 0.2 0.2 -Total Square Cm 253.38 200.91 -Wound/Ulcer Outcome Not Healed Not Healed -Ulcer Cleansing Rinsed/ Rinsed/ Irrigated with Irrigated with Saline Saline -Foul Odor after Cleansing No No -Bioengineered Tissue No No -Topical Lidocaine (%) 4 -Bleeding Controlled with Pressure Pressure -Treatment Response Procedure Procedure Tolerated Well Tolerated Well #6 L Post -Time 11: 11:33 -Correct Patient Yes Yes -Correct Side, Site, Position Yes Yes -Correct Procedure Yes Yes -Procedure Performed Yes Yes -Type of Procedure Debridement Debridement -Clinical Debridement Subcutaneous Muscle -Post Debridement Size (cm) - Length 22.5 23.6 -Post Debridement Size (cm) - Width 4.8 4.4 -Post Debridement Size (cm) - Depth 0.1 0.2 -Total Square Cm 108.00 103.84 -Wound/Ulcer Outcome Not Healed Not Healed -Ulcer Cleansing Rinsed/ Rinsed/ Irrigated with Irrigated with Saline Saline -Foul Odor after Cleansing No No -Bioengineered Tissue No No -Topical Lidocaine (%) 4 -Bleeding Controlled with Pressure Pressure -Treatment Response Procedure Procedure Tolerated Well Tolerated Well #5 R Lat LE -Time 11:29 11:14 -Correct Patient Yes Yes -Correct Side, Site, Position Yes Yes -Correct Procedure Yes Yes -Procedure Performed Yes Yes -Type of Procedure Debridement Debridement -Clinical Debridement Subcutaneous Subcutaneous -Post Debridement Size (cm) - Length 6.3 7.1 -Post Debridement Size (cm) - Width 4.3 4.5 -Post Debridement Size (cm) - Depth 0.2 0.2 -Total Square Cm 27.09 31.95 -Wound/Ulcer Outcome Not Healed Not Healed -Ulcer Cleansing Rinsed/ Rinsed/ Irrigated with Irrigated with Saline Saline -Foul Odor after Cleansing No No -Bioengineered Tissue No No -Topical Lidocaine (%) 4 -Bleeding Controlled with Pressure Pressure -Treatment Response Procedure Procedure Tolerated Well Tolerated Well #4 R post LE -Time 11:14 -Correct Patient Yes Yes -Correct Side, Site, Position Yes Yes -Correct Procedure Yes Yes -Procedure Performed Yes Yes -Type of Procedure Debridement Debridement -Clinical Debridement Subcutaneous Subcutaneous -Post Debridement Size (cm) - Length 5.1 3.1 -Post Debridement Size (cm) - Width 1.9 2.4 -Post Debridement Size (cm) - Depth 0.5 0.1 -Total Square Cm 9.69 7.44 -Wound/Ulcer Outcome Not Healed Not Healed -Ulcer Cleansing Rinsed/ Rinsed/ Irrigated with Irrigated with Saline Saline -Foul Odor after Cleansing No No -Bioengineered Tissue No No -Topical Lidocaine (%) 4 -Bleeding Controlled with Pressure Pressure -Treatment Response Procedure Procedure Tolerated Well Tolerated Well #3 R Med LE -Time 11:14 -Correct Patient Yes Yes -Correct Side, Site, Position Yes Yes -Correct Procedure Yes Yes -Procedure Performed Yes Yes -Type of Procedure Debridement Debridement -Clinical Debridement Subcutaneous Subcutaneous -Post Debridement Size (cm) - Length 3.1 4.8 -Post Debridement Size (cm) - Width 2.8 1.5 -Post Debridement Size (cm) - Depth 0.1 0.3 -Total Square Cm 8.68 7.20 -Wound/Ulcer Outcome Not Healed Not Healed -Ulcer Cleansing Rinsed/ Rinsed/ Irrigated with Irrigated with Saline Saline -Foul Odor after Cleansing No No -Bioengineered Tissue No No -Topical Lidocaine (%) 4 -Bleeding Controlled with Pressure Pressure -Treatment Response Procedure Procedure Tolerated Well Tolerated Well #2 R [place] Cluster -Time 11:30 11:14 -Correct Patient Yes Yes -Correct Side, Site, Position Yes Yes -Correct Procedure Yes Yes -Procedure Performed Yes Yes -Type of Procedure Debridement Debridement -Clinical Debridement Subcutaneous Subcutaneous -Post Debridement Size (cm) - Length 23.1 23.9 -Post Debridement Size (cm) - Width 5.3 6.4 -Post Debridement Size (cm) - Depth 0.2 0.2 -Total Square Cm 122.43 152.96 -Wound/Ulcer Outcome Not Healed Not Healed -Ulcer Cleansing Rinsed/ Rinsed/ Irrigated with Irrigated with Saline Saline -Foul Odor after Cleansing No No -Bioengineered Tissue No No -Topical Lidocaine (%) 4 -Bleeding Controlled with Pressure Pressure -Treatment Response Procedure Procedure Tolerated Well Tolerated Well #1 R 2nd toe amp/Arch/ Med Ankle -Time 11:31 11:15 -Correct Patient Yes Yes -Correct Side, Site, Position Yes Yes -Correct Procedure Yes Yes -Procedure Performed Yes Yes -Type of Procedure Debridement Debridement -Clinical Debridement Subcutaneous Muscle -Post Debridement Size (cm) - Length 39.5 38.6 -Post Debridement Size (cm) - Width 5.3 4.4 -Post Debridement Size (cm) - Depth 2.2 0.7 -Total Square Cm 209.35 169.84 -Wound/Ulcer Outcome Not Healed Not Healed -Ulcer Cleansing Rinsed/ Rinsed/ Irrigated with Irrigated with Saline Saline -Foul Odor after Cleansing No No -Bioengineered Tissue No No -Topical Lidocaine (%) 4 -Bleeding Controlled with Pressure Pressure -Treatment Response Procedure Procedure Tolerated Well Tolerated Well Pain Scale: 0-10 Numeric Is Patient Pain Free? Yes Yes Wound debrided: foot Laterality: Right Wound Grade/Stage: grade 3 Type of Debridement: Excisional debridement Anesthesia Used: 4% Lidocaine Solution Depth: in the subcutaneous layer Percentage of wound debrided: 100 Instrument Used: #15 blade, Forceps Tissue Removed: fibrous, devitalized subcutaneous and tendon, biofilm, slough Severity: Fat Layer Exposed Amount of bleeding with debridement: Mild Bleeding Controlled with: Pressure Patient tolerated procedure well - Additional Wound Wound debrided: anterior leg Laterality: Right Wound Grade/Stage: grade 1 Type of Debridement: Excisional debridement Anesthesia Used: 4% Lidocaine Solution Depth: in the subcutaneous layer Percentage of wound debrided: 100 Instrument Used: #15 blade Tissue Removed: fibrous, devitalized subcutaneous, biofilm, slough Severity: Fat Layer Exposed Amount of bleeding with debridement: Mild Bleeding Controlled with: Pressure Patient tolerated procedure: Patient tolerated procedure well - Additional Wound Wound debrided: medial leg Laterality: Right Wound Grade/Stage: grade 1 Type of Debridement: Excisional debridement Anesthesia Used: 4% Lidocaine Solution Depth: in the subcutaneous layer Percentage of wound debrided: 100 Instrument Used: #15 blade Tissue Removed: fibrous, devitalized subcutaneous, biofilm, slough Severity: Fat Layer Exposed Amount of bleeding with debridement: Mild Bleeding Controlled with: Pressure Patient tolerated procedure: Patient tolerated procedure well - Additional Wound Wound debrided: lateral leg Laterality: Right Wound Grade/Stage: grade 1 Type of Debridement: Excisional debridement Anesthesia Used: 4% Lidocaine Solution Depth: in the subcutaneous layer Percentage of wound debrided: 100 Instrument Used: #15 blade Tissue Removed: fibrous, devitalized subcutaneous, biofilm, slough Severity: Fat Layer Exposed Amount of bleeding with debridement: Mild Bleeding Controlled with: Pressure Patient tolerated procedure: Patient tolerated procedure well - Additional Wound Wound debrided: posterior leg Laterality: Right Wound Grade/Stage: grade 1 Type of Debridement: Excisional debridement Anesthesia Used: 4% Lidocaine Solution Depth: in the subcutaneous layer Percentage of wound debrided: 100 Instrument Used: #15 blade Tissue Removed: fibrous, devitalized subcutaneous, biofilm, slough Severity: Fat Layer Exposed Amount of bleeding with debridement: Mild Bleeding Controlled with: Pressure Patient tolerated procedure: Patient tolerated procedure well - Additional Wound Wound debrided: lateral leg Laterality: Left Wound Grade/Stage: grade 1 Type of Debridement: Excisional debridement Anesthesia Used: 4% Lidocaine Solution Depth: in the subcutaneous layer Percentage of wound debrided: 100 Instrument Used: #15 blade Tissue Removed: fibrous, devitalized subcutaneous, biofilm, slough Severity: Fat Layer Exposed Amount of bleeding with debridement: Mild Bleeding Controlled with: Pressure Patient tolerated procedure: Patient tolerated procedure well - Additional Wound Wound debrided: posterior leg Laterality: Left Wound Grade/Stage: grade 3 Type of Debridement: Excisional debridement Anesthesia Used: 4% Lidocaine Solution Depth: in the subcutaneous layer Percentage of wound debrided: 100 Instrument Used: #15 blade Tissue Removed: fibrous, devitalized subcutaneous, biofilm, slough Severity: Fat Layer Exposed Amount of bleeding with debridement: Mild Bleeding Controlled with: Pressure Patient tolerated procedure: Patient tolerated procedure well Assessment/Plan Active Problems 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 It is also noted he is previous bilateral leg fasciotomies and debridements and irrigation performed 1 month ago. Ulcer right foot and ankle with fat and tendon layer exposed. Ulcer right leg nearly circumferential with fat layer exposed. Ulcer left leg with fat layer exposed. Peripheral vascular disease suspected. Diabetic neuropathy. Malnutrition suspected. 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 Delayed healing. Gait impairment and fall risk. Other comorbidities Plan: I reviewed and discussed his case with the patient and the patient's . Subcutaneous and non viable tendon/muscle debridements were performed as noted in the clinical panel. Recommended changing the dressings daily with long-term facility staff assistance. A wound VAC and advanced wound care products will be considered in the future. He was reassured local signs of infection have resolved. He is scheduled for 6 weeks IV antibiotic of Unasyn. Infectious disease was on consult during his last [facility] admission. I recommend he avoids laying directly on his wounds to reduce pressure. And concerned about his perfusion to his limbs and he has an arterial Doppler scheduled with Dr. Morgan's staff on August 02, 2018 and the results are pending. He confirmed he did have this test completed. To continue with nutritional supplementation optimize healing; I recommend Juan. I recommend he sustained from smoking and alcohol activities to optimize healing as well. His workup for vasculitis and underlying autoimmune disorder is also pending. A punch biopsy was sent during his last surgical intervention on June 10 and this demonstrated inflammatory changes without malignancy. He had initial screening labs and so far he has a negative RA titer, HL of the 27, KEVIN, anti-CCP, and rheumatoid factor. Several his antibody screenings were not reportable. I have communicated this workup with his current managing physician at [facility], Dr. Perdomo, to see if additional recommendations or workup is indicated. He understands he is high risk for limb loss and his level of perfusion will better clarified after his arterial Doppler which will determine if wound care hyperbaric oxygen combination versus amputation is a better option. He understands his goals are infection prevention, pain control, and functional progression. I answered all his questions. I recommend follow-up at the wound care center 1 week or call sooner if he has any questions.
[2018-08-17 15:59] VITALS: BP 104/76; PULSE 90; RESP 20; TEMP 35.6
--- NOTE | 2018-08-17 16:58 | PCM.WC.PN ---
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 Current Visit: Yes Code(s): L97.513 - Non-pressure chronic ulcer of other part of right foot with necrosis of muscle (3) Ulcer of left lower extremity with fat layer exposed Status: Chronic Current Visit: Yes Code(s): L97.922 - Non-pressure chronic ulcer of unspecified part of left lower leg with fat layer exposed (4) Ulcer of right lower extremity with fat layer exposed Status: Chronic Current Visit: Yes Code(s): L97.912 - Non-pressure chronic ulcer of unspecified part of right lower leg with fat layer exposed (5) PVD (peripheral vascular disease) Status: Suspected Current Visit: Yes Code(s): I73.9 - Peripheral vascular disease, unspecified (6) Osteomyelitis Status: Chronic Current Visit: Yes Code(s): M86.9 - Osteomyelitis, unspecified (7) Type 2 diabetes mellitus with diabetic polyneuropathy Status: Chronic Current Visit: Yes Code(s): E11.42 - Type 2 diabetes mellitus with diabetic polyneuropathy (8) Localized edema Status: Chronic Current Visit: Yes Code(s): R60.0 - Localized edema (9) Malnutrition Status: Chronic Current Visit: Yes Code(s): E46 - Unspecified protein-calorie malnutrition (10) Tobacco user Status: Chronic Current Visit: Yes Code(s): Z72.0 - Tobacco use Type of Wound Date of Service: 08/17/18 Chief Complaint: Leg wounds and right foot wound History of Wound: This 63-year-old male with multiple comorbidities was seen today for follow-up of bilateral leg wounds and right foot wound. He is previously known to me during his last admission at [facility] on 06/07/2018. He was admitted for bilateral lower extremity abscesses infection osteomyelitis with sepsis and acute renal failure. He was taken for emergent surgical intervention followed by serial debridement and irrigation on 06/10/2018. He resides at [facility] at this time. He has an arterial Doppler scheduled for August 02, 2018. He did not go to his follow up as advised. He reports decreased leg pain, or swelling. He denies fever, chill, nausea, vomiting. He takes a nutrition supplement. He presents today with his . Progress of Wound: improving quality - Physical Exam Vital Signs Temp Pulse Resp BP 96.1 F L 90 20 H 104/76 08/17/18 15:59 08/17/18 15:59 08/17/18 15:59 08/17/18 15:59 General: Alert, Oriented x3, Cooperative HEENT: Atraumatic Extremities: No cyanosis, Capillary Refill Less than 3 Seconds, No Calf Tenderness - negative robin and winter signs bilateral, Diminished Peripheral Pulses, Edema - mild bilateral lower extremity, - - 2 and 3 ray resection right. presents in wheel chair Skin: Ulcer/ Wound - no purulence, no erythema, no infection, no necrosis noted.there is still exposed tendon bilateral. increased granulation tissue is noted to all sites. the peripheral skin is hairless and atrophic bilateral Wound Measurements and Assessment WC - Nurse 1 - General Ulcer Measurement Start: 07/27/18 10:32 Freq: Status: Active Protocol: Activity Type Activity Date Activity User E-Sign Co-Sign Detail Recorded Client Recorded Date Recorded By Document 08/17/18 15:59 DL [id number] 08/17/18 16:25 DL 08/17/18 15:59 Wound Center Nurse 1 [Ulcer Assessment] 9.L knee -Current Size (cm) - Length 0.1 -Current Size (cm) - Width 0.1 -Current Size (cm) - Depth 0.1 -Total Square Cm 0.01 -Photo Taken No -Exudate Amt None Present (0 %) -Wound Margin Thickened -Granulation Amt None Present (0 %) -Necrosis Amt Large (67-100%) -Necrotic Tissue Type Eschar -Structure Exposed N/A -Texture (Lisa-wound Skin Appearance) Scarring -Moisture (Lisa-wound Skin Appearance Dry/Scaly ) -Color (Lisa-wound Skin Appearance) Hemosiderin Staining Mottled -Temperature (Lisa-wound Skin No Abnormality Appearance) (Pt Warm) -Tenderness on Palpation (Lisa-wound No Skin Appearance) -Ulcer Cleansing Wound Cleanser -Foul Odor after Cleansing No -Anesthetic Used 4% Lidocaine Solution #8 r Knee -Current Size (cm) - Length 1.7 -Current Size (cm) - Width 1.8 -Current Size (cm) - Depth 0.2 -Total Square Cm 3.06 -Photo Taken No -Exudate Amt Medium (34-66%) -Exudate Type Serosanguineous -Wound Margin Thickened & Rolled Under -Granulation Amt Small (1-33%) -Granulation Quality [place] -Necrosis Amt Small (1-33%) -Structure Exposed N/A -Texture (Lisa-wound Skin Appearance) Scarring -Moisture (Lisa-wound Skin Appearance Maceration ) -Color (Lisa-wound Skin Appearance) No Abnormality -Temperature (Lisa-wound Skin No Abnormality Appearance) (Pt Warm) -Tenderness on Palpation (Lisa-wound No Skin Appearance) -Ulcer Cleansing Wound Cleanser -Foul Odor after Cleansing No -Anesthetic Used 4% Lidocaine Solution #7 L Lat LE Cluster -Current Size (cm) - Length 16.3 -Current Size (cm) - Width 12.5 -Current Size (cm) - Depth 0.2 -Total Square Cm 203.75 -Photo Taken No -Exudate Amt Medium (34-66%) -Exudate Type Serosanguineous -Wound Margin Distinct, Outline Attached -Granulation Amt Large (67-100%) -Granulation Quality Red -Necrosis Amt Small (1-33%) -Necrotic Tissue Type Adherent Slough -Structure Exposed N/A -Texture (Lisa-wound Skin Appearance) Localized Edema Scarring -Moisture (Lisa-wound Skin Appearance Dry/Scaly ) -Color (Lisa-wound Skin Appearance) Hemosiderin Staining Mottled -Temperature (Lisa-wound Skin No Abnormality Appearance) (Pt Warm) -Tenderness on Palpation (Lisa-wound No Skin Appearance) -Ulcer Cleansing Wound Cleanser -Foul Odor after Cleansing No -Anesthetic Used 4% Lidocaine Solution #6 L Post -Current Size (cm) - Length 22.1 -Current Size (cm) - Width 3.9 -Current Size (cm) - Depth 0.2 -Total Square Cm 86.19 -Photo Taken No -Exudate Amt Medium (34-66%) -Exudate Type Serosanguineous -Wound Margin Distinct, Outline Attached -Granulation Amt Large (67-100%) -Granulation Quality Red -Necrosis Amt Small (1-33%) -Necrotic Tissue Type Adherent Slough -Structure Exposed N/A -Texture (Lisa-wound Skin Appearance) Scarring -Moisture (Lisa-wound Skin Appearance Dry/Scaly ) -Color (Lisa-wound Skin Appearance) Erythema Hemosiderin Staining Mottled -Temperature (Lisa-wound Skin No Abnormality Appearance) (Pt Warm) -Ulcer Cleansing Wound Cleanser -Foul Odor after Cleansing No -Anesthetic Used 4% Lidocaine Solution #5 R Lat LE -Current Size (cm) - Length 6.3 -Current Size (cm) - Width 4.7 -Current Size (cm) - Depth 0.2 -Total Square Cm 29.61 -Photo Taken No -Exudate Amt Medium (34-66%) -Exudate Type Serosanguineous -Wound Margin Distinct, Outline Attached -Granulation Amt Large (67-100%) -Granulation Quality Red -Slough/Fibrin No -Structure Exposed N/A -Texture (Lisa-wound Skin Appearance) Localized Edema Scarring -Moisture (Lisa-wound Skin Appearance Dry/Scaly ) -Color (Lisa-wound Skin Appearance) Erythema Hemosiderin Staining -Temperature (Lisa-wound Skin No Abnormality Appearance) (Pt Warm) -Tenderness on Palpation (Lisa-wound No Skin Appearance) -Ulcer Cleansing Wound Cleanser -Foul Odor after Cleansing No -Anesthetic Used 4% Lidocaine Solution #4 R post LE -Current Size (cm) - Length 2.8 -Current Size (cm) - Width 2.3 -Current Size (cm) - Depth 0.1 -Total Square Cm 6.44 -Exudate Amt Medium (34-66%) -Exudate Type Serosanguineous -Wound Margin Thickened & Rolled Under -Granulation Amt Medium (34-66%) -Granulation Quality [place] Red -Necrosis Amt Medium (34-66%) -Necrotic Tissue Type Adherent Slough -Structure Exposed N/A -Texture (Lisa-wound Skin Appearance) Localized Edema Scarring -Moisture (Lisa-wound Skin Appearance Dry/Scaly ) -Color (Lisa-wound Skin Appearance) Erythema Hemosiderin Staining -Temperature (Lisa-wound Skin No Abnormality Appearance) (Pt Warm) -Tenderness on Palpation (Lisa-wound No Skin Appearance) -Ulcer Cleansing Wound Cleanser -Foul Odor after Cleansing No -Anesthetic Used 4% Lidocaine Solution #3 R Med LE -Current Size (cm) - Length 4.4 -Current Size (cm) - Width 2.2 -Current Size (cm) - Depth 0.4 -Total Square Cm 9.68 -Photo Taken No -Exudate Amt Medium (34-66%) -Exudate Type Serosanguineous -Wound Margin Thickened & Rolled Under -Granulation Amt Large (67-100%) -Granulation Quality [place] -Necrosis Amt None Present (0 %) -Structure Exposed Tendon -Texture (Lisa-wound Skin Appearance) Localized Edema Scarring -Moisture (Lisa-wound Skin Appearance Dry/Scaly ) -Color (Lisa-wound Skin Appearance) Erythema Hemosiderin Staining -Temperature (Lisa-wound Skin No Abnormality Appearance) (Pt Warm) -Tenderness on Palpation (Lisa-wound No Skin Appearance) -Ulcer Cleansing Wound Cleanser -Foul Odor after Cleansing No -Anesthetic Used 4% Lidocaine Solution #2 R [place] Cluster -Current Size (cm) - Length 18.8 -Current Size (cm) - Width 5.5 -Current Size (cm) - Depth 0.2 -Total Square Cm 103.40 -Photo Taken No -Exudate Amt Medium (34-66%) -Exudate Type Serosanguineous -Wound Margin Thickened -Granulation Amt Large (67-100%) -Granulation Quality Red -Necrosis Amt Small (1-33%) -Necrotic Tissue Type Adherent Slough -Structure Exposed N/A -Texture (Lisa-wound Skin Appearance) Localized Edema Scarring -Moisture (Lisa-wound Skin Appearance Dry/Scaly ) -Color (Lisa-wound Skin Appearance) Erythema Hemosiderin Staining -Temperature (Lisa-wound Skin No Abnormality Appearance) (Pt Warm) -Tenderness on Palpation (Lisa-wound No Skin Appearance) -Ulcer Cleansing Wound Cleanser -Foul Odor after Cleansing No -Anesthetic Used 4% Lidocaine Solution #1 R 2nd toe amp/Arch/ Med Ankle -Current Size (cm) - Length 36.6 -Current Size (cm) - Width 5.3 -Current Size (cm) - Depth 0.1 -Total Square Cm 193.98 -Photo Taken No -Exudate Amt Large (67-100%) -Exudate Type Serosanguineous -Wound Margin Thickened & Rolled Under -Granulation Amt Medium (34-66%) -Granulation Quality Red -Necrosis Amt Medium (34-66%) -Necrotic Tissue Type Adherent Slough -Structure Exposed N/A -Texture (Lisa-wound Skin Appearance) Localized Edema Scarring -Moisture (Lisa-wound Skin Appearance Dry/Scaly ) -Color (Lisa-wound Skin Appearance) Erythema Hemosiderin Staining -Temperature (Lisa-wound Skin No Abnormality Appearance) (Pt Warm) -Tenderness on Palpation (Lisa-wound No Skin Appearance) -Ulcer Cleansing Wound Cleanser -Foul Odor after Cleansing No -Anesthetic Used 4% Lidocaine Solution [Edema Assessment] -Right Calf (cm) 35.5 -Right Ankle (cm) 23 -Left Calf (cm) 36 -Left Ankle (cm) 23.3 WC - Nurse 2 - General Ulcer CM Notes Start: 07/27/18 10:32 Freq: Status: Active Protocol: Activity Type Activity Date Activity User E-Sign Co-Sign Detail Recorded Client Recorded Date Recorded By Document 08/17/18 16:51 [id number] 08/17/18 16:57 08/17/18 16:51 Wound Center Nurse 2 [Procedure/Treatment] 9.L knee -Correct Patient No -Correct Side, Site, Position No -Correct Procedure No -Procedure Performed No #8 r Knee -Correct Patient No -Correct Side, Site, Position No -Correct Procedure No -Procedure Performed No #7 L Lat LE Cluster -Time 16:51 -Correct Patient Yes -Correct Side, Site, Position Yes -Correct Procedure Yes -Procedure Performed Yes -Type of Procedure Debridement -Clinical Debridement Subcutaneous -Post Debridement Size (cm) - Length 16.3 -Post Debridement Size (cm) - Width 12.6 -Post Debridement Size (cm) - Depth 0.2 -Total Square Cm 205.38 -Wound/Ulcer Outcome Not Healed -Ulcer Cleansing Rinsed/ Irrigated with Saline -Foul Odor after Cleansing No -Bioengineered Tissue No -Bleeding Controlled with Pressure -Treatment Response Procedure Tolerated Well #6 L Post -Time 16:51 -Correct Patient Yes -Correct Side, Site, Position Yes -Correct Procedure Yes -Procedure Performed Yes -Type of Procedure Debridement -Clinical Debridement Subcutaneous -Post Debridement Size (cm) - Length 22.2 -Post Debridement Size (cm) - Width 4 -Post Debridement Size (cm) - Depth 0.2 -Total Square Cm 88.8 #5 R Lat LE -Time 16:51 -Correct Patient Yes -Correct Side, Site, Position Yes -Correct Procedure Yes -Procedure Performed Yes -Type of Procedure Debridement -Clinical Debridement Subcutaneous -Post Debridement Size (cm) - Length 6.4 -Post Debridement Size (cm) - Width 4.8 -Post Debridement Size (cm) - Depth 0.2 -Total Square Cm 30.72 -Wound/Ulcer Outcome Not Healed -Ulcer Cleansing Rinsed/ Irrigated with Saline -Foul Odor after Cleansing No -Bioengineered Tissue No -Bleeding Controlled with Pressure -Treatment Response Procedure Tolerated Well #4 R post LE -Time 16:52 -Correct Patient Yes -Correct Side, Site, Position Yes -Correct Procedure Yes -Procedure Performed Yes -Type of Procedure Debridement -Clinical Debridement Subcutaneous -Post Debridement Size (cm) - Length 2.9 -Post Debridement Size (cm) - Width 2.3 -Post Debridement Size (cm) - Depth 0.1 -Total Square Cm 6.67 -Wound/Ulcer Outcome Not Healed -Ulcer Cleansing Rinsed/ Irrigated with Saline -Foul Odor after Cleansing No -Bioengineered Tissue No -Bleeding Controlled with Pressure -Treatment Response Procedure Tolerated Well #3 R Med LE -Time 16:52 -Correct Patient Yes -Correct Side, Site, Position Yes -Correct Procedure Yes -Procedure Performed Yes -Type of Procedure Debridement -Clinical Debridement Subcutaneous -Post Debridement Size (cm) - Length 4.5 -Post Debridement Size (cm) - Width 2.2 -Post Debridement Size (cm) - Depth 0.4 -Total Square Cm 9.90 -Wound/Ulcer Outcome Not Healed -Ulcer Cleansing Rinsed/ Irrigated with Saline -Foul Odor after Cleansing No -Bioengineered Tissue No -Bleeding Controlled with Pressure -Treatment Response Procedure Tolerated Well #2 R [place] Cluster -Time 16:52 -Correct Patient Yes -Correct Side, Site, Position Yes -Correct Procedure Yes -Procedure Performed Yes -Type of Procedure Debridement -Clinical Debridement Subcutaneous -Post Debridement Size (cm) - Length 18.9 -Post Debridement Size (cm) - Width 5.5 -Post Debridement Size (cm) - Depth 0.2 -Total Square Cm 103.95 -Wound/Ulcer Outcome Not Healed -Ulcer Cleansing Rinsed/ Irrigated with Saline -Foul Odor after Cleansing No -Bioengineered Tissue No -Bleeding Controlled with Pressure -Treatment Response Procedure Tolerated Well #1 R 2nd toe amp/Arch/ Med Ankle -Time 16:52 -Correct Patient Yes -Correct Side, Site, Position Yes -Correct Procedure Yes -Procedure Performed Yes -Type of Procedure Debridement -Clinical Debridement Subcutaneous -Post Debridement Size (cm) - Length 36.7 -Post Debridement Size (cm) - Width 5.3 -Post Debridement Size (cm) - Depth 0.1 -Total Square Cm 194.51 -Wound/Ulcer Outcome Not Healed -Ulcer Cleansing Rinsed/ Irrigated with Saline -Foul Odor after Cleansing No -Bioengineered Tissue No -Bleeding Controlled with Pressure -Treatment Response Procedure Tolerated Well [See Physician Procedure note for Specifics] Pain Scale: 0-10 Numeric [Pain] -Is Patient Pain Free? Yes Musculoskeletal: No Tenderness to Palpation of Joints or Extremities, Muscle Wasting Neurological: - - lack of epicritic sensation via light touch is noted bilateral lower extremity Psych/Mental Status: Normal Affect, Appropriate Debridement Note Post-Debridement Measurements/Treatment WC - Nurse 2 - General Ulcer CM Notes Start: 07/27/18 10:32 Freq: Status: Active Protocol: Activity Type Activity Date Activity User E-Sign Co-Sign Detail Recorded Client Recorded Date Recorded By Document 07/27/18 11:22 [id number] 07/27/18 11:32 Document 08/03/18 11:10 [id number] 08/03/18 11:44 Document 08/17/18 16:51 [id number] 08/17/18 16:57 07/27/18 08/03/18 08/17/18 11:22 11:10 16:51 Wound Center Nurse 2 9.L knee -Time 11:12 -Correct Patient Yes No -Correct Side, Site, Position Yes No -Correct Procedure Yes No -Procedure Performed Yes No -Post Debridement Size (cm) - Length 0.4 -Post Debridement Size (cm) - Width 1.1 -Post Debridement Size (cm) - Depth 0.2 -Total Square Cm 0.44 -Wound/Ulcer Outcome Not Healed -Ulcer Cleansing Rinsed/ Irrigated with Saline -Foul Odor after Cleansing No -Bioengineered Tissue No -Topical Lidocaine (%) 4 -Bleeding Controlled with Pressure -Other no debridement -Treatment Response Procedure Tolerated Well #8 r Knee -Time 11:24 11:12 -Correct Patient Yes Yes No -Correct Side, Site, Position Yes Yes No -Correct Procedure Yes Yes No -Procedure Performed Yes Yes No -Type of Procedure Debridement -Clinical Debridement Subcutaneous -Post Debridement Size (cm) - Length 1.6 1.6 -Post Debridement Size (cm) - Width 2.2 1.9 -Post Debridement Size (cm) - Depth 0.2 0.2 -Total Square Cm 3.52 3.04 -Wound/Ulcer Outcome Not Healed Not Healed -Ulcer Cleansing Rinsed/ Rinsed/ Irrigated with Irrigated with Saline Saline -Foul Odor after Cleansing No No -Bioengineered Tissue No No -Topical Lidocaine (%) 4 -Bleeding Controlled with Pressure Pressure -Other no debridement -Treatment Response Procedure Procedure Tolerated Well Tolerated Well #7 L Lat LE Cluster -Time 11:28 11:13 16:51 -Correct Patient Yes Yes Yes -Correct Side, Site, Position Yes Yes Yes -Correct Procedure Yes Yes Yes -Procedure Performed Yes Yes Yes -Type of Procedure Debridement Debridement Debridement -Clinical Debridement Subcutaneous Subcutaneous Subcutaneous -Post Debridement Size (cm) - Length 20.6 18.1 16.3 -Post Debridement Size (cm) - Width 12.3 11.1 12.6 -Post Debridement Size (cm) - Depth 0.2 0.2 0.2 -Total Square Cm 253.38 200.91 205.38 -Wound/Ulcer Outcome Not Healed Not Healed Not Healed -Ulcer Cleansing Rinsed/ Rinsed/ Rinsed/ Irrigated with Irrigated with Irrigated with Saline Saline Saline -Foul Odor after Cleansing No No No -Bioengineered Tissue No No No -Topical Lidocaine (%) 4 -Bleeding Controlled with Pressure Pressure Pressure -Treatment Response Procedure Procedure Procedure Tolerated Well Tolerated Well Tolerated Well #6 L Post -Time 11:29 11:33 16:51 -Correct Patient Yes Yes Yes -Correct Side, Site, Position Yes Yes Yes -Correct Procedure Yes Yes Yes -Procedure Performed Yes Yes Yes -Type of Procedure Debridement Debridement Debridement -Clinical Debridement Subcutaneous Muscle Subcutaneous -Post Debridement Size (cm) - Length 22.5 23.6 22.2 -Post Debridement Size (cm) - Width 4.8 4.4 4 -Post Debridement Size (cm) - Depth 0.1 0.2 0.2 -Total Square Cm 108.00 103.84 88.8 -Wound/Ulcer Outcome Not Healed Not Healed -Ulcer Cleansing Rinsed/ Rinsed/ Irrigated with Irrigated with Saline Saline -Foul Odor after Cleansing No No -Bioengineered Tissue No No -Topical Lidocaine (%) 4 -Bleeding Controlled with Pressure Pressure -Treatment Response Procedure Procedure Tolerated Well Tolerated Well #5 R Lat LE -Time 11:14 16:51 -Correct Patient Yes Yes Yes -Correct Side, Site, Position Yes Yes Yes -Correct Procedure Yes Yes Yes -Procedure Performed Yes Yes Yes -Type of Procedure Debridement Debridement Debridement -Clinical Debridement Subcutaneous Subcutaneous Subcutaneous -Post Debridement Size (cm) - Length 6.3 7.1 6.4 -Post Debridement Size (cm) - Width 4.3 4.5 4.8 -Post Debridement Size (cm) - Depth 0.2 0.2 0.2 -Total Square Cm 27.09 31.95 30.72 -Wound/Ulcer Outcome Not Healed Not Healed Not Healed -Ulcer Cleansing Rinsed/ Rinsed/ Rinsed/ Irrigated with Irrigated with Irrigated with Saline Saline Saline -Foul Odor after Cleansing No No No -Bioengineered Tissue No No No -Topical Lidocaine (%) 4 -Bleeding Controlled with Pressure Pressure Pressure -Treatment Response Procedure Procedure Procedure Tolerated Well Tolerated Well Tolerated Well #4 R post LE -Time 11:14 16:52 -Correct Patient Yes Yes Yes -Correct Side, Site, Position Yes Yes Yes -Correct Procedure Yes Yes Yes -Procedure Performed Yes Yes Yes -Type of Procedure Debridement Debridement Debridement -Clinical Debridement Subcutaneous Subcutaneous Subcutaneous -Post Debridement Size (cm) - Length 5.1 3.1 2.9 -Post Debridement Size (cm) - Width 1.9 2.4 2.3 -Post Debridement Size (cm) - Depth 0.5 0.1 0.1 -Total Square Cm 9.69 7.44 6.67 -Wound/Ulcer Outcome Not Healed Not Healed Not Healed -Ulcer Cleansing Rinsed/ Rinsed/ Rinsed/ Irrigated with Irrigated with Irrigated with Saline Saline Saline -Foul Odor after Cleansing No No No -Bioengineered Tissue No No No -Topical Lidocaine (%) 4 -Bleeding Controlled with Pressure Pressure Pressure -Treatment Response Procedure Procedure Procedure Tolerated Well Tolerated Well Tolerated Well #3 R Med LE -Time 11:14 16:52 -Correct Patient Yes Yes Yes -Correct Side, Site, Position Yes Yes Yes -Correct Procedure Yes Yes Yes -Procedure Performed Yes Yes Yes -Type of Procedure Debridement Debridement Debridement -Clinical Debridement Subcutaneous Subcutaneous Subcutaneous -Post Debridement Size (cm) - Length 3.1 4.8 4.5 -Post Debridement Size (cm) - Width 2.8 1.5 2.2 -Post Debridement Size (cm) - Depth 0.1 0.3 0.4 -Total Square Cm 8.68 7.20 9.90 -Wound/Ulcer Outcome Not Healed Not Healed Not Healed -Ulcer Cleansing Rinsed/ Rinsed/ Rinsed/ Irrigated with Irrigated with Irrigated with Saline Saline Saline -Foul Odor after Cleansing No No No -Bioengineered Tissue No No No -Topical Lidocaine (%) 4 -Bleeding Controlled with Pressure Pressure Pressure -Treatment Response Procedure Procedure Procedure Tolerated Well Tolerated Well Tolerated Well #2 R [place] Cluster -Time 11:30 11:14 16:52 -Correct Patient Yes Yes Yes -Correct Side, Site, Position Yes Yes Yes -Correct Procedure Yes Yes Yes -Procedure Performed Yes Yes Yes -Type of Procedure Debridement Debridement Debridement -Clinical Debridement Subcutaneous Subcutaneous Subcutaneous -Post Debridement Size (cm) - Length 23.1 23.9 18.9 -Post Debridement Size (cm) - Width 5.3 6.4 5.5 -Post Debridement Size (cm) - Depth 0.2 0.2 0.2 -Total Square Cm 122.43 152.96 103.95 -Wound/Ulcer Outcome Not Healed Not Healed Not Healed -Ulcer Cleansing Rinsed/ Rinsed/ Rinsed/ Irrigated with Irrigated with Irrigated with Saline Saline Saline -Foul Odor after Cleansing No No No -Bioengineered Tissue No No No -Topical Lidocaine (%) 4 -Bleeding Controlled with Pressure Pressure Pressure -Treatment Response Procedure Procedure Procedure Tolerated Well Tolerated Well Tolerated Well #1 R 2nd toe amp/Arch/ Med Ankle -Time 11:31 11:15 16:52 -Correct Patient Yes Yes Yes -Correct Side, Site, Position Yes Yes Yes -Correct Procedure Yes Yes Yes -Procedure Performed Yes Yes Yes -Type of Procedure Debridement Debridement Debridement -Clinical Debridement Subcutaneous Muscle Subcutaneous -Post Debridement Size (cm) - Length 39.5 38.6 36.7 -Post Debridement Size (cm) - Width 5.3 4.4 5.3 -Post Debridement Size (cm) - Depth 2.2 0.7 0.1 -Total Square Cm 209.35 169.84 194.51 -Wound/Ulcer Outcome Not Healed Not Healed Not Healed -Ulcer Cleansing Rinsed/ Rinsed/ Rinsed/ Irrigated with Irrigated with Irrigated with Saline Saline Saline -Foul Odor after Cleansing No No No -Bioengineered Tissue No No No -Topical Lidocaine (%) 4 -Bleeding Controlled with Pressure Pressure Pressure -Treatment Response Procedure Procedure Procedure Tolerated Well Tolerated Well Tolerated Well Pain Scale: 0-10 Numeric Is Patient Pain Free? Yes Yes Yes Wound debrided: foot Laterality: Right Wound Grade/Stage: grade 3 Type of Debridement: Excisional debridement Anesthesia Used: 4% Lidocaine Solution Depth: in the subcutaneous layer Percentage of wound debrided: 100 Instrument Used: 5mm curette Tissue Removed: fibrous, devitalized subcutaneous, biofilm, slough Severity: Fat Layer Exposed Amount of bleeding with debridement: Mild Bleeding Controlled with: Pressure Patient tolerated procedure well - Additional Wound Wound debrided: leg orellana Laterality: Right Wound Grade/Stage: grade 1 Type of Debridement: Excisional debridement Anesthesia Used: 4% Lidocaine Solution Depth: in the subcutaneous layer Percentage of wound debrided: 100 Instrument Used: #15 blade Tissue Removed: fibrous, devitalized subcutaneous, biofilm, slough Severity: Fat Layer Exposed Amount of bleeding with debridement: Mild Bleeding Controlled with: Pressure Patient tolerated procedure: Patient tolerated procedure well - Additional Wound Wound debrided: leg posterior Laterality: Left Wound Grade/Stage: grade 1 Type of Debridement: Excisional debridement Anesthesia Used: 4% Lidocaine Solution Depth: in the subcutaneous layer Percentage of wound debrided: 100 Instrument Used: #15 blade Tissue Removed: fibrous, devitalized subcutaneous, biofilm, slough Severity: Fat Layer Exposed Amount of bleeding with debridement: Mild Bleeding Controlled with: Pressure Patient tolerated procedure: Patient tolerated procedure well - Additional Wound Wound debrided: leg lateral Laterality: Left Wound Grade/Stage: grade 1 Type of Debridement: Excisional debridement Anesthesia Used: 4% Lidocaine Solution Depth: in the subcutaneous layer Percentage of wound debrided: 100 Instrument Used: #15 blade Tissue Removed: fibrous, devitalized subcutaneous, biofilm, slough Severity: Fat Layer Exposed Amount of bleeding with debridement: Mild Bleeding Controlled with: Pressure Patient tolerated procedure: Patient tolerated procedure well - Additional Wound Wound debrided: leg medial Laterality: Right Wound Grade/Stage: grade 1 Type of Debridement: Excisional debridement Anesthesia Used: 4% Lidocaine Solution Depth: in the subcutaneous layer Percentage of wound debrided: 100 Instrument Used: #15 blade Tissue Removed: fibrous, devitalized subcutaneous, biofilm, slough Severity: Fat Layer Exposed Amount of bleeding with debridement: Mild Bleeding Controlled with: Pressure Patient tolerated procedure: Patient tolerated procedure well - Additional Wound Wound debrided: leg lateral Laterality: Right Wound Grade/Stage: grade 1 Type of Debridement: Excisional debridement Anesthesia Used: 4% Lidocaine Solution Depth: in the subcutaneous layer Percentage of wound debrided: 100 Instrument Used: #15 blade Tissue Removed: fibrous, devitalized subcutaneous, biofilm, slough Severity: Fat Layer Exposed Amount of bleeding with debridement: Mild Bleeding Controlled with: Pressure Patient tolerated procedure: Patient tolerated procedure well - Additional Wound Wound debrided: leg posterior Laterality: Right Wound Grade/Stage: grade 1 Type of Debridement: Excisional debridement Anesthesia Used: 4% Lidocaine Solution Depth: in the subcutaneous layer Percentage of wound debrided: 100 Tissue Removed: fibrous, devitalized subcutaneous, biofilm, slough Severity: Fat Layer Exposed Amount of bleeding with debridement: Mild Bleeding Controlled with: Pressure Patient tolerated procedure: Patient tolerated procedure well Assessment/Plan Active Problems 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 It is also noted he is previous bilateral leg fasciotomies and debridements and irrigation performed previously. Ulcer right foot and ankle with fat and tendon layer exposed. Ulcer right leg nearly circumferential with fat layer exposed. Ulcer left leg with fat layer exposed. Peripheral vascular disease suspected. Diabetic neuropathy. Malnutrition suspected. 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 Delayed healing. Gait impairment and fall risk. Other comorbidities Plan: I reviewed and discussed his case with the patient and the patient's . Subcutaneous and non viable tendon/muscle debridements were performed as noted in the clinical panel. Recommended changing the dressings daily with [facility] facility staff assistance. A wound VAC was ordered for the right foot open amputation site and extends to the plantar foot and medial ankle. He was reassured local signs of infection have resolved. He is scheduled for 6 weeks IV antibiotic of Unasyn. Infectious disease was on consult during his last [facility] admission. I recommend he avoids laying directly on his wounds to reduce pressure. And concerned about his perfusion to his limbs and he has an arterial Doppler scheduled with Dr. Morgan's staff on August 02, 2018 and the results are pending. He confirmed he did have this test completed. He was urged to follow up with Dr. Morgan as advised to to delay no longer. To continue with nutritional supplementation optimize healing; I recommend Juan. I recommend he sustained from smoking and alcohol activities to optimize healing as well. His workup for vasculitis and underlying autoimmune disorder is also pending. A punch biopsy was sent during his last surgical intervention on June 10 and this demonstrated inflammatory changes without malignancy. He had initial screening labs and so far he has a negative RA titer, HL of the 27, KEVIN, anti-CCP, and rheumatoid factor. Several his antibody screenings were not reportable. I have communicated this workup with his current managing physician at [facility], Dr. Perdomo, to see if additional recommendations or workup is indicated. He understands he is high risk for limb loss and his level of perfusion will better clarified after his arterial Doppler which will determine if wound care hyperbaric oxygen combination versus amputation is a better option. He understands his goals are infection prevention, pain control, and functional progression. I answered all his questions. It is also he has bilateral knee ulcer which is not in my current podiatric scope of practice at this time. He applies santyl daily as recommended by Dr. Adrian the last time he was hospitalized. He will follow up with another wound care center provider next week specifically for debridement and evaluation of these knee sites. I recommend further follow-up at the wound care center 1 week with me, or call sooner if he has any questions.
== END 2018-08-21 23:59 ==
LOC: WC 15:45
PROVIDERS: Family Provider Family Medicine; PCP Family Medicine; Visit Provider Podiatrist
DX: E11.621 Type 2 diabetes mellitus with foot ulcer (principal); E11.51 Type 2 diabetes mellitus with diabetic peripheral angiopathy without gangrene; E11.622 Type 2 diabetes mellitus with other skin ulcer; L97.822 Non-pressure chronic ulcer of other part of left lower leg with fat layer exposed; L97.812 Non-pressure chronic ulcer of other part of right lower leg with fat layer exposed; L97.412 Non-pressure chronic ulcer of right heel and midfoot with fat layer exposed; E11.42 Type 2 diabetes mellitus with diabetic polyneuropathy; R60.0 Localized edema; Z72.0 Tobacco use
CPT/HCPCS: 11042; 11043; 11045; 11046; 97602

== ENCOUNTER 2018-09-21 11:00 | Outpatient (RCR) | payer OTHER, SELFPAY ==
[2018-08-22 01:24] VITALS: BP 104/76; PULSE 90; RESP 20; TEMP 35.6
[2018-08-24 12:02] VITALS: BP 120/72; PULSE 118; RESP 22; TEMP 36.2
--- NOTE | 2018-08-24 13:19 | HP.PCM_ITS ---
(1) Skin ulcer of right knee with fat layer exposed Status: Chronic Current Visit: Yes Code(s): L97.812 - Non-pressure chronic ulcer of other part of right lower leg with fat layer exposed (2) Skin ulcer of left knee with fat layer exposed Status: Chronic Current Visit: Yes Code(s): L97.822 - Non-pressure chronic ulcer of other part of left lower leg with fat layer exposed (3) DM2 (diabetes mellitus, type 2) Status: Chronic Current Visit: Yes Code(s): E11.9 - Type 2 diabetes mellitus without complications History of Present Illness Chief Complaint: Leg wounds and right foot wound History of Wound: Mr. Arguello is a 63-year-old with significant comorbidities also being followed by Dr. Gruber for bilateral lower extremity ulcers/osteomyelitis. I have been asked to see him for his bilateral knee ulcers. Said to have been ongoing for over 6 weeks. He denies any known precipitating factor. He has been applying Santyl to both wounds with some improvement. He denies chills, fever or otherwise feeling of unwell. He prese nts today with his . 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 Anticipate Stage III or IV if excision done. Right ischial pressure sore, stage 2 (Chronic) at least a Stage II. Anticipate Stage III or IV if excision done. Pressure ulcer of sacral region, stage 2 (Chronic) at least a Stage II. Anticipate Stage III or IV if excision done. 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) Ulcer of right foot with necrosis of muscle (Chronic) Osteomyelitis (Chronic) Type 2 diabetes mellitus with diabetic polyneuropathy (Chronic) Localized edema (Chronic) Malnutrition (Chronic) Abscess of left leg (Chronic) Ulcer of right lower extremity with fat layer exposed (Chronic) Ulcer of left lower extremity with fat layer exposed (Chronic) Tobacco user (Chronic) HLD (hyperlipidemia) (Chronic) DM2 (diabetes mellitus, type 2) (Chronic) Depression (Chronic) Chronic low back pain (Chronic) Benign essential HTN (Chronic) Surgical History: tonsillectomy Allergies/Adverse Reactions: Allergies No Known Allergies Allergy (Verified 08/05/18 13:36) Home Medications: Ambulatory Orders Medication Instructions Recorded Aspirin [Adult Aspirin] 81 mg PO DAILY 06/07/18 Cholecalciferol (VIT D3) [Vitamin 1,000 unit PO DAILY 06/07/18 D3] Acetaminophen [Tylenol Tablet] 650 mg PO Q6H PRN PRN tablet 06/14/18 Ascorbic Acid [Vitamin C] 500 mg PO BIDCM tablet 06/14/18 Tamsulosin HCl [Flomax] 0.4 mg PO DAILY@1730 capsule 06/14/18 Zinc Sulfate (50mg elemental) 220 mg PO DAILY capsule 06/14/18 [Zinc Sulfate] Argin/Glut/Cahmb/Collag/Mv-Min 1 each PO BID 08/05/18 [Juan Packet] Atorvastatin Calcium [Lipitor] 10 mg PO QHS 08/05/18 Famotidine 20 mg PO DAILY 08/05/18 Insulin Lispro [Humalog] See Protocol SQ 4X/DAY 08/05/18 Multivitamins,Ther W-Minerals 1 tablet PO DAILY 08/05/18 [Multivitamin With Minerals] Paroxetine HCl [Paxil] 40 mg PO DAILY 08/05/18 Warfarin [Coumadin] 6 mg PO DAILY 08/05/18 glipiZIDE [Glucotrol] 10 mg PO DAILY@0730 08/05/18 Atenolol [Tenormin (beta dilia)] 50 mg PO DAILY tablet 08/10/18 Bumetanide [Bumex] 2 mg PO DAILY tablet 08/10/18 Ferrous Sulfate 325 mg PO BIDCM tablet 08/10/18 Metronidazole [Flagyl] 500 mg PO TID tablet 08/10/18 Potassium Chloride [K-Dur] 40 meq PO BIDCM tablet 08/10/18 Sodium Hypochlorite [Dakins 1 applic TOPICAL BID bottle 08/10/18 Solution 0.25% (1/2 Strength)] Spironolactone [Aldactone] 25 mg PO DAILY tablet 08/10/18 levoFLOXacin tablet [Levaquin 750 mg PO DAILY@0600 tablet 08/10/18 tablet] - Family History Paternal Heart Disease - His father had atrial fibrillation and an AICD/pacemaker Maternal Diabetes - His mother had severe diabetes mellitus and had amputations of her lower extremities. Smoking Status: Current every day smoker Review of Systems Constitutional: Denies: Anorexia, Chills, Fever Eyes: Denies: Pain, Redness HEENT: Denies: Difficulty Hearing Cardiovascular: Denies: Chest Pain, Chest Tightness Respiratory: Denies: Cough, Shortness of Breath Gastrointestinal: Denies: Hematemesis, Vomiting Skin: Denies: Jaundice - Physical Exam Vital Signs Temp Pulse Resp BP 97.1 F L 118 H 22 H 120/72 08/24/18 12:02 08/24/18 12:02 08/24/18 12:02 08/24/18 12:02 General: Alert, Oriented x3, Cooperative, No apparent distress HEENT: Atraumatic, Normocephalic Oral: Moist Mucosa Neck: Supple Lungs: Normal air movement Abdomen: Non Tender Extremities: No cyanosis Skin: Ulcer/ Wound Wound Measurements and Assessment WC - Nurse 1 - General Ulcer Measurement Start: 08/24/18 12:02 Freq: Status: Active Protocol: Activity Type Activity Date Activity User E-Sign Co-Sign Detail Recorded Client Recorded Date Recorded By Document 08/24/18 12:02 DL [id number] 08/24/18 12:08 DL 08/24/18 12:02 Wound Center Nurse 1 [Ulcer Assessment] 9.L knee -Current Size (cm) - Length 0.5 -Current Size (cm) - Width 1.1 -Current Size (cm) - Depth 0.1 -Total Square Cm 0.55 -Photo Taken No -Exudate Amt Small (1-33%) -Exudate Type Serosanguineous -Wound Margin Flat & Intact -Granulation Amt Small (1-33%) -Granulation Quality Pale -Necrosis Amt Small (1-33%) -Necrotic Tissue Type Adherent Slough -Structure Exposed N/A -Texture (Lisa-wound Skin Appearance) Scarring -Moisture (Lisa-wound Skin Appearance No Abnormality ) -Color (Lisa-wound Skin Appearance) Ecchymosis Mottled -Temperature (Lisa-wound Skin No Abnormality Appearance) (Pt Warm) -Tenderness on Palpation (Lisa-wound No Skin Appearance) -Ulcer Cleansing Rinsed/ Irrigated with Saline -Foul Odor after Cleansing No -Anesthetic Used 4% Lidocaine Solution #8 r Knee -Current Size (cm) - Length 1.6 -Current Size (cm) - Width 1.8 -Current Size (cm) - Depth 0.2 -Total Square Cm 2.88 -Photo Taken No -Exudate Amt Small (1-33%) -Exudate Type Serosanguineous -Wound Margin Thickened -Granulation Amt Small (1-33%) -Granulation Quality [place] -Necrosis Amt Large (67-100%) -Necrotic Tissue Type Adherent Slough -Structure Exposed N/A -Texture (Lisa-wound Skin Appearance) Scarring -Moisture (Lisa-wound Skin Appearance No Abnormality ) -Color (Lisa-wound Skin Appearance) Hemosiderin Staining Mottled -Temperature (Lisa-wound Skin No Abnormality Appearance) (Pt Warm) -Tenderness on Palpation (Lisa-wound No Skin Appearance) -Ulcer Cleansing Rinsed/ Irrigated with Saline -Foul Odor after Cleansing No -Anesthetic Used 4% Lidocaine Solution WC - Nurse 2 - General Ulcer CM Notes Start: 08/24/18 12:02 Freq: Status: Active Protocol: Activity Type Activity Date Activity User E-Sign Co-Sign Detail Recorded Client Recorded Date Recorded By Document 08/24/18 12:18 MW [id number] 08/24/18 12:24 MW 08/24/18 12:18 Wound Center Nurse 2 [Procedure/Treatment] 9.L knee -Time 12:19 -Correct Patient Yes -Correct Side, Site, Position Yes -Correct Procedure Yes -Procedure Performed Yes -Type of Procedure Debridement -Clinical Debridement Subcutaneous -Post Debridement Size (cm) - Length 0.3 -Post Debridement Size (cm) - Width 1.2 -Post Debridement Size (cm) - Depth 0.1 -Total Square Cm 0.36 -Wound/Ulcer Outcome Not Healed -Ulcer Cleansing Rinsed/ Irrigated with Saline -Foul Odor after Cleansing No -Bioengineered Tissue No -Bleeding Controlled with Pressure -Treatment Response Procedure Tolerated Well #8 r Knee -Time 12:19 -Correct Patient Yes -Correct Side, Site, Position Yes -Correct Procedure Yes -Procedure Performed Yes -Type of Procedure Debridement -Clinical Debridement Subcutaneous -Post Debridement Size (cm) - Length 1.3 -Post Debridement Size (cm) - Width 2.0 -Post Debridement Size (cm) - Depth 0.3 -Total Square Cm 2.60 -Wound/Ulcer Outcome Not Healed -Ulcer Cleansing Rinsed/ Irrigated with Saline -Foul Odor after Cleansing No -Bioengineered Tissue No -Bleeding Controlled with Pressure -Other circular undermining @10 , 1.4cm -Treatment Response Procedure Tolerated Well [See Physician Procedure note for Specifics] Musculoskeletal: No Muscle Wasting Neurological: Cranial nerves II-XII grossly intact Psych/Mental Status: Normal Affect Debridement Note Post-Debridement Measurements/Treatment WC - Nurse 2 - General Ulcer CM Notes Start: 08/24/18 12:02 Freq: Status: Active Protocol: Activity Type Activity Date Activity User E-Sign Co-Sign Detail Recorded Client Recorded Date Recorded By Document 08/24/18 12:18 MW [id number] 08/24/18 12:24 MW 08/24/18 12:18 Wound Center Nurse 2 9.L knee -Time 12:19 -Correct Patient Yes -Correct Side, Site, Position Yes -Correct Procedure Yes -Procedure Performed Yes -Type of Procedure Debridement -Clinical Debridement Subcutaneous -Post Debridement Size (cm) - Length 0.3 -Post Debridement Size (cm) - Width 1.2 -Post Debridement Size (cm) - Depth 0.1 -Total Square Cm 0.36 -Wound/Ulcer Outcome Not Healed -Ulcer Cleansing Rinsed/ Irrigated with Saline -Foul Odor after Cleansing No -Bioengineered Tissue No -Bleeding Controlled with Pressure -Treatment Response Procedure Tolerated Well #8 r Knee -Time 12:19 -Correct Patient Yes -Correct Side, Site, Position Yes -Correct Procedure Yes -Procedure Performed Yes -Type of Procedure Debridement -Clinical Debridement Subcutaneous -Post Debridement Size (cm) - Length 1.3 -Post Debridement Size (cm) - Width 2.0 -Post Debridement Size (cm) - Depth 0.3 -Total Square Cm 2.60 -Wound/Ulcer Outcome Not Healed -Ulcer Cleansing Rinsed/ Irrigated with Saline -Foul Odor after Cleansing No -Bioengineered Tissue No -Bleeding Controlled with Pressure -Other circular undermining @10 , 1.4cm -Treatment Response Procedure Tolerated Well Wound debrided: Right knee Wound Grade/Stage: Stage III Type of Debridement: Excisional debridement Anesthesia Used: 4% Lidocaine Solution Depth: Down to and including healthy tissue, in the subcutaneous layer, - - Tendon exposed Percentage of wound debrided: 100 Instrument Used: 3mm curette Tissue Removed: Slough and devitalized tissue Severity: Fat Layer Exposed Amount of bleeding with debridement: Mild Bleeding Controlled with: Pressure Patient tolerated procedure well - Additional Wound Wound debrided: Left knee Wound Grade/Stage: Stage II Type of Debridement: Excisional debridement Anesthesia Used: 4% Lidocaine Solution Depth: Down to and including healthy tissue, in the subcutaneous layer Percentage of wound debrided: 100 Instrument Used: 3mm curette Tissue Removed: Slough and devitalized tissue Severity: Fat Layer Exposed Amount of bleeding with debridement: Mild Bleeding Controlled with: Pressure Patient tolerated procedure: Patient tolerated procedure well Assessment/Plan Active Problems Skin ulcer of right knee with fat layer exposed (Chronic) Skin ulcer of left knee with fat layer exposed (Chronic) DM2 (diabetes mellitus, type 2) (Chronic) Assessment: Right knee ulcer, tendon exposed. Left knee ulcer. Diabetes mellitus type 2 amongst other comorbid conditions as documented previously. Plan: Debridement done as documented above. Procedure was well-tolerated. Has been applying Santyl to both knees. Tendon exposed on the right. Will switch to Promogran. Apply daily with Adaptic over top. No obvious signs of infection at this time. Continue Juan/increased protein intake. Elevate lower extremities when seated and in bed. His questions were answered and he was asked to call with any further questions or concerns. Continue other management per other physicians. Follow-up in 1 week with me. This note was generated with [employer]ede[employer] software. It may contain incorrect words, spelling, and punctuation that were not noted in checking the note before signing.
[2018-09-07 08:59] VITALS: BP 130/76; PULSE 116; RESP 16; TEMP 35.8
--- NOTE | 2018-09-07 09:56 | PN.PCM_ITS ---
(1) Skin ulcer of right knee with fat layer exposed Status: Chronic Current Visit: Yes Code(s): L97.812 - Non-pressure chronic ulcer of other part of right lower leg with fat layer exposed (2) Skin ulcer of left knee with fat layer exposed Status: Chronic Current Visit: Yes Code(s): L97.822 - Non-pressure chronic ulcer of other part of left lower leg with fat layer exposed (3) DM2 (diabetes mellitus, type 2) Status: Chronic Current Visit: Yes Code(s): E11.9 - Type 2 diabetes mellitus without complications Type of Wound Chief Complaint: Leg wounds and right foot wound History of Wound: Mr. Arguello is a 63-year-old with significant comorbidities also being followed by Dr. Gruber for bilateral lower extremity ulcers/osteomyelitis. I have been asked to see him for his bilateral knee ulcers. Said to have been ongoing for over 6 weeks. He denies any known precipitating factor. He has been applying Santyl to both wounds with some improvement. He denies chills, fever or otherwise feeling of unwell. He presents today with his . Progress of Wound: Stable ulcers. No new complaints at this time. - Physical Exam Vital Signs Temp Pulse Resp BP 96.4 F L 116 H 16 130/76 H 09/07/18 08:59 09/07/18 08:59 09/07/18 08:59 09/07/18 08:59 General: Alert, Oriented x3, Cooperative, No apparent distress HEENT: Atraumatic Oral: Moist Mucosa Neck: Supple Lungs: Normal air movement Abdomen: Non Tender Extremities: No cyanosis Skin: Ulcer/ Wound Wound Measurements and Assessment WC - Nurse 1 - General Ulcer Measurement Start: 08/24/18 12:02 Freq: Status: Active Protocol: Activity Type Activity Date Activity User E-Sign Co-Sign Detail Recorded Client Recorded Date Recorded By Document 09/07/18 08:59 [id number] 09/07/18 09:30 09/07/18 08:59 Wound Center Nurse 1 [Ulcer Assessment] 9.L knee -Combined with other wound No -Current Size (cm) - Length 1.4 -Current Size (cm) - Width 1.6 -Current Size (cm) - Depth 0.2 -Total Square Cm 2.24 -Date of Last Picture (Recall this 09/07/18 field) -Photo Taken Yes -Epithelialization None Present -Tunneling No -Undermining/Tunneling No -Circular Undermining No -Exudate Amt Medium (34-66%) -Exudate Type Serosanguineous -Wound Margin Thickened -Granulation Amt Medium (34-66%) -Granulation Quality [place] -Necrosis Amt None Present (0 %) -Necrotic Tissue Type Adherent Slough -Structure Exposed None/Limited to Skin Breakdown -Moisture (Lisa-wound Skin Appearance Maceration ) -Temperature (Lisa-wound Skin No Abnormality Appearance) (Pt Warm) -Tenderness on Palpation (Lisa-wound No Skin Appearance) -Ulcer Cleansing Wound Cleanser -Foul Odor after Cleansing No -Anesthetic Used 4% Lidocaine Solution #8 r Knee -Combined with other wound No -Current Size (cm) - Length 0.1 -Current Size (cm) - Width 0.1 -Current Size (cm) - Depth 0.1 -Total Square Cm 0.01 -Date of Last Picture (Recall this 09/07/18 field) -Photo Taken Yes -Necrotic Tissue Type Eschar -Anesthetic Used 4% Lidocaine Solution #7 L Lat LE Cluster -Combined with other wound No -Current Size (cm) - Length 7.6 -Current Size (cm) - Width 2.8 -Current Size (cm) - Depth 0.1 -Total Square Cm 21.28 -Date of Last Picture (Recall this 09/07/18 field) -Photo Taken Yes -Epithelialization None Present -Tunneling No -Undermining/Tunneling No -Circular Undermining No -Exudate Amt Medium (34-66%) -Exudate Type Serosanguineous -Wound Margin Distinct, Outline Attached -Granulation Amt Medium (34-66%) -Granulation Quality Red -Slough/Fibrin Yes -Necrosis Amt None Present (0 %) -Temperature (Lisa-wound Skin No Abnormality Appearance) (Pt Warm) -Tenderness on Palpation (Lsia-wound No Skin Appearance) -Ulcer Cleansing Wound Cleanser -Foul Odor after Cleansing No -Anesthetic Used 4% Lidocaine Solution #6 L Post -Combined with other wound No -Current Size (cm) - Length 7.2 -Current Size (cm) - Width 22.6 -Current Size (cm) - Depth 0.2 -Total Square Cm 162.72 -Date of Last Picture (Recall this 09/07/18 field) -Photo Taken Yes -Epithelialization None Present -Tunneling No -Undermining/Tunneling No -Circular Undermining No -Exudate Type Serosanguineous -Wound Margin Distinct, Outline Attached -Granulation Amt Medium (34-66%) -Granulation Quality [place] Red -Slough/Fibrin Yes -Necrosis Amt None Present (0 %) -Necrotic Tissue Type Adherent Slough -Structure Exposed None/Limited to Skin Breakdown -Texture (Lisa-wound Skin Appearance) No Abnormality Assessed -Moisture (Lisa-wound Skin Appearance No Abnormality ) Assessed -Color (Lisa-wound Skin Appearance) No Abnormality Assessed -Temperature (Lisa-wound Skin No Abnormality Appearance) (Pt Warm) -Tenderness on Palpation (Lisa-wound No Skin Appearance) -Ulcer Cleansing Wound Cleanser -Anesthetic Used 4% Lidocaine Solution #5 R Lat LE -Combined with other wound No -Current Size (cm) - Length 4.6 -Current Size (cm) - Width 2.3 -Current Size (cm) - Depth 0.1 -Total Square Cm 10.58 -Date of Last Picture (Recall this 09/07/18 field) -Photo Taken Yes -Epithelialization None Present -Tunneling No -Undermining/Tunneling No -Exudate Amt Medium (34-66%) -Exudate Type Serosanguineous -Wound Margin Distinct, Outline Attached -Granulation Amt Medium (34-66%) -Granulation Quality Red -Slough/Fibrin Yes -Necrosis Amt None Present (0 %) -Necrotic Tissue Type Adherent Slough -Texture (Lisa-wound Skin Appearance) No Abnormality Assessed -Moisture (Lisa-wound Skin Appearance Maceration ) -Color (Lisa-wound Skin Appearance) No Abnormality Assessed -Temperature (Lisa-wound Skin No Abnormality Appearance) (Pt Warm) -Tenderness on Palpation (Lisa-wound No Skin Appearance) -Ulcer Cleansing Wound Cleanser -Foul Odor after Cleansing No -Anesthetic Used 4% Lidocaine Solution #4 R post LE -Combined with other wound No -Current Size (cm) - Length 2 -Current Size (cm) - Width 1.2 -Current Size (cm) - Depth 0.1 -Total Square Cm 2.4 -Date of Last Picture (Recall this 09/07/18 field) -Photo Taken Yes -Epithelialization None Present -Tunneling No -Undermining/Tunneling No -Circular Undermining No -Color (Lisa-wound Skin Appearance) No Abnormality Assessed -Temperature (Lisa-wound Skin No Abnormality Appearance) (Pt Warm) -Tenderness on Palpation (Lisa-wound No Skin Appearance) -Ulcer Cleansing Wound Cleanser -Foul Odor after Cleansing No -Anesthetic Used 4% Lidocaine Solution #3 R Med LE -Combined with other wound No -Current Size (cm) - Length 4.4 -Current Size (cm) - Width 0.8 -Current Size (cm) - Depth 0.3 -Total Square Cm 3.52 -Date of Last Picture (Recall this 09/07/18 field) -Photo Taken Yes -Epithelialization None Present -Tunneling No -Undermining/Tunneling No -Wound Margin Distinct, Outline Attached -Granulation Amt Medium (34-66%) -Granulation Quality Pale -Slough/Fibrin Yes -Necrosis Amt Medium (34-66%) -Necrotic Tissue Type Adherent Slough -Structure Exposed None/Limited to Skin Breakdown -Texture (Lisa-wound Skin Appearance) No Abnormality Assessed -Moisture (Lisa-wound Skin Appearance Maceration ) -Color (Lisa-wound Skin Appearance) No Abnormality Assessed -Temperature (Lisa-wound Skin No Abnormality Appearance) (Pt Warm) -Tenderness on Palpation (Lisa-wound No Skin Appearance) -Ulcer Cleansing Wound Cleanser -Foul Odor after Cleansing No -Anesthetic Used 4% Lidocaine Solution #2 R [place] Cluster -Combined with other wound No -Current Size (cm) - Length 16 -Current Size (cm) - Width 4.5 -Current Size (cm) - Depth 0.2 -Total Square Cm 72.0 -Date of Last Picture (Recall this 09/07/18 field) -Photo Taken Yes -Epithelialization None Present -Tunneling No -Undermining/Tunneling No -Circular Undermining No -Exudate Amt Small (1-33%) -Exudate Type Serosanguineous -Wound Margin Distinct, Outline Attached -Granulation Amt Medium (34-66%) -Granulation Quality [place] Red -Slough/Fibrin Yes -Necrosis Amt None Present (0 %) -Necrotic Tissue Type Adherent Slough -Structure Exposed None/Limited to Skin Breakdown -Texture (Lisa-wound Skin Appearance) No Abnormality Assessed -Moisture (Lisa-wound Skin Appearance Maceration ) -Color (Lisa-wound Skin Appearance) No Abnormality Assessed -Temperature (Lisa-wound Skin No Abnormality Appearance) (Pt Warm) -Tenderness on Palpation (Lisa-wound No Skin Appearance) -Ulcer Cleansing Wound Cleanser -Foul Odor after Cleansing No -Anesthetic Used 4% Lidocaine Solution #1 R 2nd toe amp/Arch/ Med Ankle -Combined with other wound No -Current Size (cm) - Length 33.3 -Current Size (cm) - Width 4 -Current Size (cm) - Depth 2.5 -Total Square Cm 133.2 -Date of Last Picture (Recall this 09/07/18 field) -Photo Taken Yes -Epithelialization None Present -Tunneling No -Undermining/Tunneling No -Circular Undermining No -Wound Margin Thickened & Rolled Under -Temperature (Lisa-wound Skin No Abnormality Appearance) (Pt Warm) -Tenderness on Palpation (Lisa-wound No Skin Appearance) -Ulcer Cleansing Wound Cleanser -Foul Odor after Cleansing No -Anesthetic Used 4% Lidocaine Solution [Edema Assessment] -Lower Limb Edema Present No -Right Calf (cm) 34 -Right Ankle (cm) 22.7 -Left Calf (cm) 33.7 -Left Ankle (cm) 21.5 WC - Nurse 2 - General Ulcer CM Notes Start: 08/24/18 12:02 Freq: Status: Active Protocol: Activity Type Activity Date Activity User E-Sign Co-Sign Detail Recorded Client Recorded Date Recorded By Document 09/07/18 09:37 MW [id number] 09/07/18 09:41 MW 09/07/18 09:37 Wound Center Nurse 2 [Procedure/Treatment] 9.L knee -Time 09:38 -Correct Patient Yes -Correct Side, Site, Position Yes -Correct Procedure Yes -Procedure Performed Yes -Type of Procedure Debridement -Clinical Debridement Subcutaneous -Post Debridement Size (cm) - Length 0.4 -Post Debridement Size (cm) - Width 1.0 -Post Debridement Size (cm) - Depth 0.2 -Total Square Cm 0.40 -Wound/Ulcer Outcome Not Healed -Ulcer Cleansing Rinsed/ Irrigated with Saline -Foul Odor after Cleansing No -Bioengineered Tissue No -Bleeding Controlled with Pressure -Treatment Response Procedure Tolerated Well #8 r Knee -Time 09:38 -Correct Patient Yes -Correct Side, Site, Position Yes -Correct Procedure Yes -Procedure Performed Yes -Type of Procedure Debridement -Clinical Debridement Subcutaneous -Post Debridement Size (cm) - Length 1.2 -Post Debridement Size (cm) - Width 1.7 -Post Debridement Size (cm) - Depth 0.3 -Total Square Cm 2.04 -Wound/Ulcer Outcome Not Healed -Ulcer Cleansing Rinsed/ Irrigated with Saline -Foul Odor after Cleansing No -Bioengineered Tissue No -Bleeding Controlled with Pressure -Treatment Response Procedure Tolerated Well [See Physician Procedure note for Specifics] Musculoskeletal: No Muscle Wasting Neurological: Cranial nerves II-XII grossly intact Psych/Mental Status: Normal Affect Debridement Note Post-Debridement Measurements/Treatment WC - Nurse 2 - General Ulcer CM Notes Start: 08/24/18 12:02 Freq: Status: Active Protocol: Activity Type Activity Date Activity User E-Sign Co-Sign Detail Recorded Client Recorded Date Recorded By Document 08/24/18 12:18 MW [id number] 08/24/18 12:24 MW Document 09/07/18 09:37 MW [id number] 09/07/18 09:41 MW 08/24/18 09/07/18 12:18 09:37 Wound Center Nurse 2 9.L knee -Time 12:19 09:38 -Correct Patient Yes Yes -Correct Side, Site, Position Yes Yes -Correct Procedure Yes Yes -Procedure Performed Yes Yes -Type of Procedure Debridement Debridement -Clinical Debridement Subcutaneous Subcutaneous -Post Debridement Size (cm) - Length 0.3 0.4 -Post Debridement Size (cm) - Width 1.2 1.0 -Post Debridement Size (cm) - Depth 0.1 0.2 -Total Square Cm 0.36 0.40 -Wound/Ulcer Outcome Not Healed Not Healed -Ulcer Cleansing Rinsed/ Rinsed/ Irrigated with Irrigated with Saline Saline -Foul Odor after Cleansing No No -Bioengineered Tissue No No -Bleeding Controlled with Pressure Pressure -Treatment Response Procedure Procedure Tolerated Well Tolerated Well #8 r Knee -Time 12:19 09:38 -Correct Patient Yes Yes -Correct Side, Site, Position Yes Yes -Correct Procedure Yes Yes -Procedure Performed Yes Yes -Type of Procedure Debridement Debridement -Clinical Debridement Subcutaneous Subcutaneous -Post Debridement Size (cm) - Length 1.3 1.2 -Post Debridement Size (cm) - Width 2.0 1.7 -Post Debridement Size (cm) - Depth 0.3 0.3 -Total Square Cm 2.60 2.04 -Wound/Ulcer Outcome Not Healed Not Healed -Ulcer Cleansing Rinsed/ Rinsed/ Irrigated with Irrigated with Saline Saline -Foul Odor after Cleansing No No -Bioengineered Tissue No No -Bleeding Controlled with Pressure Pressure -Other circular undermining @10 , 1.4cm -Treatment Response Procedure Procedure Tolerated Well Tolerated Well Wound debrided: Right knee Wound Grade/Stage: Stage III Type of Debridement: Excisional debridement Anesthesia Used: 5% Lidocaine Gel Depth: Down to and including healthy tissue, in the subcutaneous layer Percentage of wound debrided: 100 Instrument Used: 7mm curette Tissue Removed: Slough and devitalized tissue Severity: Fat Layer Exposed Amount of bleeding with debridement: Mild Bleeding Controlled with: Pressure Patient tolerated procedure well - Additional Wound Wound debrided: Left knee Wound Grade/Stage: Stage II Type of Debridement: Excisional debridement Anesthesia Used: 4% Lidocaine Solution Depth: Down to and including healthy tissue, in the subcutaneous layer Percentage of wound debrided: 100 Instrument Used: 7mm curette, - - 1mm Tissue Removed: Slough and devitalized tissue Severity: Fat Layer Exposed Amount of bleeding with debridement: Mild Bleeding Controlled with: Pressure Patient tolerated procedure: Patient tolerated procedure well Assessment/Plan Active Problems Skin ulcer of right knee with fat layer exposed (Chronic) Skin ulcer of left knee with fat layer exposed (Chronic) DM2 (diabetes mellitus, type 2) (Chronic) Assessment: Right knee ulcer, tendon exposed. Left knee ulcer. Diabetes mellitus type 2 amongst other comorbid conditions as documented previously. Plan: Debridement done as documented above. Procedure was well-tolerated. Doing well with Pomogran, will continue. Change daily with adaptic over top. Continue Juan/increased protein intake. Elevate lower extremities when seated and in bed. His questions were answered and he was asked to call with any further questions or concerns. Continue other management of lower extremity ulcers per Dr. Gruber. Follow-up in 1 week with me. This note was generated with [employer] dictation software. It may contain incorrect words, spelling, and punctuation that were not noted in checking the note before signing.
--- NOTE | 2018-09-07 11:13 | PN.PCM_ITS ---
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 Current Visit: Yes Code(s): L97.513 - Non-pressure chronic ulcer of other part of right foot with necrosis of muscle (4) Delayed wound healing Status: Chronic Current Visit: Yes Code(s): T14.8XXD - Other injury of unspecified body region, subsequent encounter (5) Smoker Status: Chronic Current Visit: Yes Code(s): F17.200 - Nicotine dependence, unspecified, uncomplicated (6) Vasculitis Status: Chronic Current Visit: Yes Code(s): I77.6 - Arteritis, unspecified (7) Ulcer of left lower extremity with fat layer exposed Status: Chronic Current Visit: Yes Code(s): L97.922 - Non-pressure chronic ulcer of unspecified part of left lower leg with fat layer exposed (8) Type 2 diabetes mellitus with diabetic polyneuropathy Status: Chronic Current Visit: Yes Code(s): E11.42 - Type 2 diabetes mellitus with diabetic polyneuropathy (9) Localized edema Status: Chronic Current Visit: Yes Code(s): R60.0 - Localized edema (10) Malnutrition Status: Chronic Current Visit: Yes Code(s): E46 - Unspecified protein- calorie malnutrition Type of Wound Chief Complaint: right and left Leg ulcers and right foot ulcer History of Wound: Mr. Arguello is a 63-year-old male with multiple comorbidities follows up for delayed healing ulcers to the right foot as well as bilateral legs. It is noted he previously had widespread debridements and fasciotomies performed to bilateral lower extremities secondary to life-threatening and limb threatening infection; this was previously performed at [facility]. He continues to follow with Dr. Gilbert for her knee ulcers, and I saw him today for his other ulcer sites. He has been applying Santyl to both the wounds, Aquacel to leg ulcers, and wound VAC to right foot defect with quality improvement. He denies chills, fever or otherwise feeling of unwell. He presents today with his . He continues to smoke a half a pack of cigarettes daily. Progress of Wound: Improving quality - Physical Exam Vital Signs Temp Pulse Resp BP 96.4 F L 116 H 16 130/76 H 09/07/18 08:59 09/07/18 08:59 09/07/18 08:59 09/07/18 08:59 General: Alert, Oriented x3, Cooperative Extremities: No cyanosis, Capillary Refill Less than 3 Seconds, No Calf Tenderness - Negative Errol and [place] signs bilateral, Diminished Peripheral Pulses, Edema - mild bilateral, - - Compartments bilateral lower extremities remain soft on palpation Skin: Ulcer/ Wound - No purulence, erythema, streaking, odor, or infection. The peripheral skin is hairless atrophic. There is exposed devitalized fascia tissue to the plantar right foot and also some devitalized muscular tissue to the posterior left leg. There is no exposed bone bilateral, - - Improved granulation pink tissue to all sites noted Wound Measurements and Assessment WC - Nurse 1 - General Ulcer Measurement Start: 08/24/18 12:02 Freq: Status: Active Protocol: Activity Type Activity Date Activity User E-Sign Co-Sign Detail Recorded Client Recorded Date Recorded By Document 09/07/18 08:59 [id number] 09/07/18 09:30 09/07/18 08:59 Wound Center Nurse 1 [Ulcer Assessment] 9.L knee -Combined with other wound No -Current Size (cm) - Length 1.4 -Current Size (cm) - Width 1.6 -Current Size (cm) - Depth 0.2 -Total Square Cm 2.24 -Date of Last Picture (Recall this 09/07/18 field) -Photo Taken Yes -Epithelialization None Present -Tunneling No -Undermining/Tunneling No -Circular Undermining No -Exudate Amt Medium (34-66%) -Exudate Type Serosanguineous -Wound Margin Thickened -Granulation Amt Medium (34-66%) -Granulation Quality [place] -Necrosis Amt None Present (0 %) -Necrotic Tissue Type Adherent Slough -Structure Exposed None/Limited to Skin Breakdown -Moisture (Lisa-wound Skin Appearance Maceration ) -Temperature (Lisa-wound Skin No Abnormality Appearance) (Pt Warm) -Tenderness on Palpation (Lisa-wound No Skin Appearance) -Ulcer Cleansing Wound Cleanser -Foul Odor after Cleansing No -Anesthetic Used 4% Lidocaine Solution #8 r Knee -Combined with other wound No -Current Size (cm) - Length 0.1 -Current Size (cm) - Width 0.1 -Current Size (cm) - Depth 0.1 -Total Square Cm 0.01 -Date of Last Picture (Recall this 09/07/18 field) -Photo Taken Yes -Necrotic Tissue Type Eschar -Anesthetic Used 4% Lidocaine Solution #7 L Lat LE Cluster -Combined with other wound No -Current Size (cm) - Length 7.6 -Current Size (cm) - Width 2.8 -Current Size (cm) - Depth 0.1 -Total Square Cm 21.28 -Date of Last Picture (Recall this 09/07/18 field) -Photo Taken Yes -Epithelialization None Present -Tunneling No -Undermining/Tunneling No -Circular Undermining No -Exudate Amt Medium (34-66%) -Exudate Type Serosanguineous -Wound Margin Distinct, Outline Attached -Granulation Amt Medium (34-66%) -Granulation Quality Red -Slough/Fibrin Yes -Necrosis Amt None Present (0 %) -Temperature (Lisa-wound Skin No Abnormality Appearance) (Pt Warm) -Tenderness on Palpation (Lisa-wound No Skin Appearance) -Ulcer Cleansing Wound Cleanser -Foul Odor after Cleansing No -Anesthetic Used 4% Lidocaine Solution #6 L Post -Combined with other wound No -Current Size (cm) - Length 7.2 -Current Size (cm) - Width 22.6 -Current Size (cm) - Depth 0.2 -Total Square Cm 162.72 -Date of Last Picture (Recall this 09/07/18 field) -Photo Taken Yes -Epithelialization None Present -Tunneling No -Undermining/Tunneling No -Circular Undermining No -Exudate Type Serosanguineous -Wound Margin Distinct, Outline Attached -Granulation Amt Medium (34-66%) -Granulation Quality [place] Red -Slough/Fibrin Yes -Necrosis Amt None Present (0 %) -Necrotic Tissue Type Adherent Slough -Structure Exposed None/Limited to Skin Breakdown -Texture (Lisa-wound Skin Appearance) No Abnormality Assessed -Moisture (Lisa-wound Skin Appearance No Abnormality ) Assessed -Color (Lisa-wound Skin Appearance) No Abnormality Assessed -Temperature (Lisa-wound Skin No Abnormality Appearance) (Pt Warm) -Tenderness on Palpation (Lisa-wound No Skin Appearance) -Ulcer Cleansing Wound Cleanser -Anesthetic Used 4% Lidocaine Solution #5 R Lat LE -Combined with other wound No -Current Size (cm) - Length 4.6 -Current Size (cm) - Width 2.3 -Current Size (cm) - Depth 0.1 -Total Square Cm 10.58 -Date of Last Picture (Recall this 09/07/18 field) -Photo Taken Yes -Epithelialization None Present -Tunneling No -Undermining/Tunneling No -Exudate Amt Medium (34-66%) -Exudate Type Serosanguineous -Wound Margin Distinct, Outline Attached -Granulation Amt Medium (34-66%) -Granulation Quality Red -Slough/Fibrin Yes -Necrosis Amt None Present (0 %) -Necrotic Tissue Type Adherent Slough -Texture (Lisa-wound Skin Appearance) No Abnormality Assessed -Moisture (Lisa-wound Skin Appearance Maceration ) -Color (Lisa-wound Skin Appearance) No Abnormality Assessed -Temperature (Lisa-wound Skin No Abnormality Appearance) (Pt Warm) -Tenderness on Palpation (Lisa-wound No Skin Appearance) -Ulcer Cleansing Wound Cleanser -Foul Odor after Cleansing No -Anesthetic Used 4% Lidocaine Solution #4 R post LE -Combined with other wound No -Current Size (cm) - Length 2 -Current Size (cm) - Width 1.2 -Current Size (cm) - Depth 0.1 -Total Square Cm 2.4 -Date of Last Picture (Recall this 09/07/18 field) -Photo Taken Yes -Epithelialization None Present -Tunneling No -Undermining/Tunneling No -Circular Undermining No -Color (Lisa-wound Skin Appearance) No Abnormality Assessed -Temperature (Lisa-wound Skin No Abnormality Appearance) (Pt Warm) -Tenderness on Palpation (Lisa-wound No Skin Appearance) -Ulcer Cleansing Wound Cleanser -Foul Odor after Cleansing No -Anesthetic Used 4% Lidocaine Solution #3 R Med LE -Combined with other wound No -Current Size (cm) - Length 4.4 -Current Size (cm) - Width 0.8 -Current Size (cm) - Depth 0.3 -Total Square Cm 3.52 -Date of Last Picture (Recall this 09/07/18 field) -Photo Taken Yes -Epithelialization None Present -Tunneling No -Undermining/Tunneling No -Wound Margin Distinct, Outline Attached -Granulation Amt Medium (34-66%) -Granulation Quality Pale -Slough/Fibrin Yes -Necrosis Amt Medium (34-66%) -Necrotic Tissue Type Adherent Slough -Structure Exposed None/Limited to Skin Breakdown -Texture (Lisa-wound Skin Appearance) No Abnormality Assessed -Moisture (Lisa-wound Skin Appearance Maceration ) -Color (Lisa-wound Skin Appearance) No Abnormality Assessed -Temperature (Lisa-wound Skin No Abnormality Appearance) (Pt Warm) -Tenderness on Palpation (Lisa-wound No Skin Appearance) -Ulcer Cleansing Wound Cleanser -Foul Odor after Cleansing No -Anesthetic Used 4% Lidocaine Solution #2 R [place] Cluster -Combined with other wound No -Current Size (cm) - Length 16 -Current Size (cm) - Width 4.5 -Current Size (cm) - Depth 0.2 -Total Square Cm 72.0 -Date of Last Picture (Recall this 09/07/18 field) -Photo Taken Yes -Epithelialization None Present -Tunneling No -Undermining/Tunneling No -Circular Undermining No -Exudate Amt Small (1-33%) -Exudate Type Serosanguineous -Wound Margin Distinct, Outline Attached -Granulation Amt Medium (34-66%) -Granulation Quality [place] Red -Slough/Fibrin Yes -Necrosis Amt None Present (0 %) -Necrotic Tissue Type Adherent Slough -Structure Exposed None/Limited to Skin Breakdown -Texture (Lisa-wound Skin Appearance) No Abnormality Assessed -Moisture (Lisa-wound Skin Appearance Maceration ) -Color (Lisa-wound Skin Appearance) No Abnormality Assessed -Temperature (Lisa-wound Skin No Abnormality Appearance) (Pt Warm) -Tenderness on Palpation (Lisa-wound No Skin Appearance) -Ulcer Cleansing Wound Cleanser -Foul Odor after Cleansing No -Anesthetic Used 4% Lidocaine Solution #1 R 2nd toe amp/Arch/ Med Ankle -Combined with other wound No -Current Size (cm) - Length 33.3 -Current Size (cm) - Width 4 -Current Size (cm) - Depth 2.5 -Total Square Cm 133.2 -Date of Last Picture (Recall this 09/07/18 field) -Photo Taken Yes -Epithelialization None Present -Tunneling No -Undermining/Tunneling No -Circular Undermining No -Wound Margin Thickened & Rolled Under -Temperature (Lisa-wound Skin No Abnormality Appearance) (Pt Warm) -Tenderness on Palpation (Lisa-wound No Skin Appearance) -Ulcer Cleansing Wound Cleanser -Foul Odor after Cleansing No -Anesthetic Used 4% Lidocaine Solution [Edema Assessment] -Lower Limb Edema Present No -Right Calf (cm) 34 -Right Ankle (cm) 22.7 -Left Calf (cm) 33.7 -Left Ankle (cm) 21.5 WC - Nurse 2 - General Ulcer CM Notes Start: 08/24/18 12:02 Freq: Status: Active Protocol: Activity Type Activity Date Activity User E-Sign Co-Sign Detail Recorded Client Recorded Date Recorded By Document 09/07/18 09:37 MW [id number] 09/07/18 09:41 MW Document 09/07/18 10:12 TM [id number] 09/07/18 10:17 TM 09/07/18 09/07/18 09:37 10:12 Wound Center Nurse 2 [Procedure/Treatment] 9.L knee -Time 09:38 10:12 -Correct Patient Yes Yes -Correct Side, Site, Position Yes Yes -Correct Procedure Yes Yes -Procedure Performed Yes Yes -Type of Procedure Debridement -Clinical Debridement Subcutaneous -Post Debridement Size (cm) - Length 0.4 -Post Debridement Size (cm) - Width 1.0 -Post Debridement Size (cm) - Depth 0.2 -Total Square Cm 0.40 -Wound/Ulcer Outcome Not Healed Not Healed -Ulcer Cleansing Rinsed/ Rinsed/ Irrigated with Irrigated with Saline Saline -Foul Odor after Cleansing No No -Bioengineered Tissue No No -Topical Lidocaine (%) 4 -Bleeding Controlled with Pressure Pressure -Treatment Response Procedure Tolerated Well #8 r Knee -Time 09:38 10:12 -Correct Patient Yes Yes -Correct Side, Site, Position Yes Yes -Correct Procedure Yes Yes -Procedure Performed Yes Yes -Type of Procedure Debridement -Clinical Debridement Subcutaneous -Post Debridement Size (cm) - Length 1.2 -Post Debridement Size (cm) - Width 1.7 -Post Debridement Size (cm) - Depth 0.3 -Total Square Cm 2.04 -Wound/Ulcer Outcome Not Healed Not Healed -Ulcer Cleansing Rinsed/ Rinsed/ Irrigated with Irrigated with Saline Saline -Foul Odor after Cleansing No No -Bioengineered Tissue No No -Bleeding Controlled with Pressure NA -Treatment Response Procedure Tolerated Well #7 L Lat LE Cluster -Time 10:13 -Correct Patient Yes -Correct Side, Site, Position Yes -Correct Procedure Yes -Procedure Performed Yes -Type of Procedure Debridement -Clinical Debridement Subcutaneous -Post Debridement Size (cm) - Length 7.7 -Post Debridement Size (cm) - Width 2.9 -Post Debridement Size (cm) - Depth 0.1 -Total Square Cm 22.33 -Wound/Ulcer Outcome Not Healed -Ulcer Cleansing Rinsed/ Irrigated with Saline -Foul Odor after Cleansing No -Bioengineered Tissue No -Topical Lidocaine (%) 4 -Bleeding Controlled with Pressure -Treatment Response Procedure Tolerated Well #6 L Post -Time 10:13 -Correct Patient Yes -Correct Side, Site, Position Yes -Correct Procedure Yes -Procedure Performed Yes -Type of Procedure Debridement -Clinical Debridement Muscle -Post Debridement Size (cm) - Length 7.3 -Post Debridement Size (cm) - Width 22.7 -Post Debridement Size (cm) - Depth 0.2 -Total Square Cm 165.71 -Wound/Ulcer Outcome Not Healed -Ulcer Cleansing Rinsed/ Irrigated with Saline -Foul Odor after Cleansing No -Bioengineered Tissue No -Topical Lidocaine (%) 4 -Bleeding Controlled with Pressure -Treatment Response Procedure Tolerated Well #5 R Lat LE -Time 10:14 -Correct Patient Yes -Correct Side, Site, Position Yes -Correct Procedure Yes -Procedure Performed Yes -Type of Procedure Debridement -Clinical Debridement Subcutaneous -Post Debridement Size (cm) - Length 4.7 -Post Debridement Size (cm) - Width 2.4 -Post Debridement Size (cm) - Depth 0.1 -Total Square Cm 11.28 -Wound/Ulcer Outcome Not Healed -Ulcer Cleansing Rinsed/ Irrigated with Saline -Foul Odor after Cleansing No -Bioengineered Tissue No -Topical Lidocaine (%) 4 -Bleeding Controlled with Pressure -Treatment Response Procedure Tolerated Well #4 R post LE -Time 10:15 -Correct Patient Yes -Correct Side, Site, Position Yes -Correct Procedure Yes -Procedure Performed Yes -Type of Procedure Debridement -Clinical Debridement Subcutaneous -Post Debridement Size (cm) - Length 2.1 -Post Debridement Size (cm) - Width 1.3 -Post Debridement Size (cm) - Depth 0.1 -Total Square Cm 2.73 -Wound/Ulcer Outcome Not Healed -Ulcer Cleansing Rinsed/ Irrigated with Saline -Foul Odor after Cleansing No -Bioengineered Tissue No -Topical Lidocaine (%) 4 -Bleeding Controlled with Pressure -Treatment Response Procedure Tolerated Well #3 R Med LE -Time 10:15 -Correct Patient Yes -Correct Side, Site, Position Yes -Correct Procedure Yes -Procedure Performed Yes -Type of Procedure Debridement -Clinical Debridement Subcutaneous -Post Debridement Size (cm) - Length 4.5 -Post Debridement Size (cm) - Width 0.9 -Post Debridement Size (cm) - Depth 0.3 -Total Square Cm 4.05 -Wound/Ulcer Outcome Not Healed -Ulcer Cleansing Rinsed/ Irrigated with Saline -Foul Odor after Cleansing No -Bioengineered Tissue No -Topical Lidocaine (%) 4 -Bleeding Controlled with Pressure -Treatment Response Procedure Tolerated Well #2 R [place] Cluster -Time 10:15 -Correct Patient Yes -Correct Side, Site, Position Yes -Correct Procedure Yes -Procedure Performed Yes -Type of Procedure Debridement -Clinical Debridement Subcutaneous -Post Debridement Size (cm) - Length 16.1 -Post Debridement Size (cm) - Width 4.6 -Post Debridement Size (cm) - Depth 0.2 -Total Square Cm 74.06 -Wound/Ulcer Outcome Not Healed -Ulcer Cleansing Rinsed/ Irrigated with Saline -Foul Odor after Cleansing No -Bioengineered Tissue No -Topical Lidocaine (%) 4 -Bleeding Controlled with Pressure -Treatment Response Procedure Tolerated Well #1 R 2nd toe amp/Arch/ Med Ankle -Time 10:16 -Correct Patient Yes -Correct Side, Site, Position Yes -Correct Procedure Yes -Procedure Performed Yes -Type of Procedure Debridement -Clinical Debridement Muscle -Post Debridement Size (cm) - Length 33.4 -Post Debridement Size (cm) - Width 4.1 -Post Debridement Size (cm) - Depth 2.2 -Total Square Cm 136.94 -Wound/Ulcer Outcome Not Healed -Ulcer Cleansing Rinsed/ Irrigated with Saline -Foul Odor after Cleansing No -Bioengineered Tissue No -Topical Lidocaine (%) 4 -Bleeding Controlled with Pressure -Treatment Response Procedure Tolerated Well [See Physician Procedure note for Specifics] Pain Scale: 0-10 Numeric [Pain] -Is Patient Pain Free? Yes Musculoskeletal: No Tenderness to Palpation of Joints or Extremities, Muscle Wasting Neurological: - - Lack of normal epicritic sensation light touch and debridement bilateral lower extremities Psych/Mental Status: Normal Affect, Appropriate Debridement Note Post-Debridement Measurements/Treatment WC - Nurse 2 - General Ulcer CM Notes Start: 08/24/18 12:02 Freq: Status: Active Protocol: Activity Type Activity Date Activity User E-Sign Co-Sign Detail Recorded Client Recorded Date Recorded By Document 08/24/18 12:18 MW [id number] 08/24/18 12:24 MW Document 09/07/18 09:37 MW [id number] 09/07/18 09:41 MW Document 09/07/18 10:12 TM [id number] 09/07/18 10:17 TM 08/24/18 09/07/18 09/07/18 12:18 09:37 10:12 Wound Center Nurse 2 9.L knee -Time 12: 09:38 10:12 -Correct Patient Yes Yes Yes -Correct Side, Site, Position Yes Yes Yes -Correct Procedure Yes Yes Yes -Procedure Performed Yes Yes Yes -Type of Procedure Debridement Debridement -Clinical Debridement Subcutaneous Subcutaneous -Post Debridement Size (cm) - Length 0.3 0.4 -Post Debridement Size (cm) - Width 1.2 1.0 -Post Debridement Size (cm) - Depth 0.1 0.2 -Total Square Cm 0.36 0.40 -Wound/Ulcer Outcome Not Healed Not Healed Not Healed -Ulcer Cleansing Rinsed/ Rinsed/ Rinsed/ Irrigated with Irrigated with Irrigated with Saline Saline Saline -Foul Odor after Cleansing No No No -Bioengineered Tissue No No No -Topical Lidocaine (%) 4 -Bleeding Controlled with Pressure Pressure Pressure -Treatment Response Procedure Procedure Tolerated Well Tolerated Well #8 r Knee -Time 12: 09:38 10:12 -Correct Patient Yes Yes Yes -Correct Side, Site, Position Yes Yes Yes -Correct Procedure Yes Yes Yes -Procedure Performed Yes Yes Yes -Type of Procedure Debridement Debridement -Clinical Debridement Subcutaneous Subcutaneous -Post Debridement Size (cm) - Length 1.3 1.2 -Post Debridement Size (cm) - Width 2.0 1.7 -Post Debridement Size (cm) - Depth 0.3 0.3 -Total Square Cm 2.60 2.04 -Wound/Ulcer Outcome Not Healed Not Healed Not Healed -Ulcer Cleansing Rinsed/ Rinsed/ Rinsed/ Irrigated with Irrigated with Irrigated with Saline Saline Saline -Foul Odor after Cleansing No No No -Bioengineered Tissue No No No -Bleeding Controlled with Pressure Pressure NA -Other circular undermining @10 , 1.4cm -Treatment Response Procedure Procedure Tolerated Well Tolerated Well #7 L Lat LE Cluster -Time 10:13 -Correct Patient Yes -Correct Side, Site, Position Yes -Correct Procedure Yes -Procedure Performed Yes -Type of Procedure Debridement -Clinical Debridement Subcutaneous -Post Debridement Size (cm) - Length 7.7 -Post Debridement Size (cm) - Width 2.9 -Post Debridement Size (cm) - Depth 0.1 -Total Square Cm 22.33 -Wound/Ulcer Outcome Not Healed -Ulcer Cleansing Rinsed/ Irrigated with Saline -Foul Odor after Cleansing No -Bioengineered Tissue No -Topical Lidocaine (%) 4 -Bleeding Controlled with Pressure -Treatment Response Procedure Tolerated Well #6 L Post -Time 10:13 -Correct Patient Yes -Correct Side, Site, Position Yes -Correct Procedure Yes -Procedure Performed Yes -Type of Procedure Debridement -Clinical Debridement Muscle -Post Debridement Size (cm) - Length 7.3 -Post Debridement Size (cm) - Width 22.7 -Post Debridement Size (cm) - Depth 0.2 -Total Square Cm 165.71 -Wound/Ulcer Outcome Not Healed -Ulcer Cleansing Rinsed/ Irrigated with Saline -Foul Odor after Cleansing No -Bioengineered Tissue No -Topical Lidocaine (%) 4 -Bleeding Controlled with Pressure -Treatment Response Procedure Tolerated Well #5 R Lat LE -Time 10:14 -Correct Patient Yes -Correct Side, Site, Position Yes -Correct Procedure Yes -Procedure Performed Yes -Type of Procedure Debridement -Clinical Debridement Subcutaneous -Post Debridement Size (cm) - Length 4.7 -Post Debridement Size (cm) - Width 2.4 -Post Debridement Size (cm) - Depth 0.1 -Total Square Cm 11.28 -Wound/Ulcer Outcome Not Healed -Ulcer Cleansing Rinsed/ Irrigated with Saline -Foul Odor after Cleansing No -Bioengineered Tissue No -Topical Lidocaine (%) 4 -Bleeding Controlled with Pressure -Treatment Response Procedure Tolerated Well #4 R post LE -Time 10:15 -Correct Patient Yes -Correct Side, Site, Position Yes -Correct Procedure Yes -Procedure Performed Yes -Type of Procedure Debridement -Clinical Debridement Subcutaneous -Post Debridement Size (cm) - Length 2.1 -Post Debridement Size (cm) - Width 1.3 -Post Debridement Size (cm) - Depth 0.1 -Total Square Cm 2.73 -Wound/Ulcer Outcome Not Healed -Ulcer Cleansing Rinsed/ Irrigated with Saline -Foul Odor after Cleansing No -Bioengineered Tissue No -Topical Lidocaine (%) 4 -Bleeding Controlled with Pressure -Treatment Response Procedure Tolerated Well #3 R Med LE -Time 10:15 -Correct Patient Yes -Correct Side, Site, Position Yes -Correct Procedure Yes -Procedure Performed Yes -Type of Procedure Debridement -Clinical Debridement Subcutaneous -Post Debridement Size (cm) - Length 4.5 -Post Debridement Size (cm) - Width 0.9 -Post Debridement Size (cm) - Depth 0.3 -Total Square Cm 4.05 -Wound/Ulcer Outcome Not Healed -Ulcer Cleansing Rinsed/ Irrigated with Saline -Foul Odor after Cleansing No -Bioengineered Tissue No -Topical Lidocaine (%) 4 -Bleeding Controlled with Pressure -Treatment Response Procedure Tolerated Well #2 R [place] Cluster -Time 10:15 -Correct Patient Yes -Correct Side, Site, Position Yes -Correct Procedure Yes -Procedure Performed Yes -Type of Procedure Debridement -Clinical Debridement Subcutaneous -Post Debridement Size (cm) - Length 16.1 -Post Debridement Size (cm) - Width 4.6 -Post Debridement Size (cm) - Depth 0.2 -Total Square Cm 74.06 -Wound/Ulcer Outcome Not Healed -Ulcer Cleansing Rinsed/ Irrigated with Saline -Foul Odor after Cleansing No -Bioengineered Tissue No -Topical Lidocaine (%) 4 -Bleeding Controlled with Pressure -Treatment Response Procedure Tolerated Well #1 R 2nd toe amp/Arch/ Med Ankle -Time 10:16 -Correct Patient Yes -Correct Side, Site, Position Yes -Correct Procedure Yes -Procedure Performed Yes -Type of Procedure Debridement -Clinical Debridement Muscle -Post Debridement Size (cm) - Length 33.4 -Post Debridement Size (cm) - Width 4.1 -Post Debridement Size (cm) - Depth 2.2 -Total Square Cm 136.94 -Wound/Ulcer Outcome Not Healed -Ulcer Cleansing Rinsed/ Irrigated with Saline -Foul Odor after Cleansing No -Bioengineered Tissue No -Topical Lidocaine (%) 4 -Bleeding Controlled with Pressure -Treatment Response Procedure Tolerated Well Pain Scale: 0-10 Numeric Is Patient Pain Free? Yes Wound debrided: foot Laterality: Right Wound Grade/Stage: grade 3 Type of Debridement: Excisional debridement Anesthesia Used: 4% Lidocaine Solution Depth: in the subcutaneous layer, to muscle Percentage of wound debrided: 90 - subcutaneous, 10 - muscle/fascia Instrument Used: #15 blade Tissue Removed: fibrous, devitalized subcutaneous, biofilm, slough Severity: Fat Layer Exposed Amount of bleeding with debridement: Mild Bleeding Controlled with: Pressure Patient tolerated procedure well - Additional Wound Wound debrided: orellana (anterior leg) Laterality: Right Wound Grade/Stage: grade 1 Type of Debridement: Excisional debridement Anesthesia Used: 4% Lidocaine Solution Depth: in the subcutaneous layer Percentage of wound debrided: 100 Instrument Used: #15 blade Tissue Removed: fibrous, devitalized subcutaneous, biofilm, slough Severity: Fat Layer Exposed Amount of bleeding with debridement: Mild Bleeding Controlled with: Pressure Patient tolerated procedure: Patient tolerated procedure well - Additional Wound Wound debrided: medial leg Laterality: Right Wound Grade/Stage: grade 1 Type of Debridement: Excisional debridement Anesthesia Used: 4% Lidocaine Solution Depth: in the subcutaneous layer Percentage of wound debrided: 100 Instrument Used: #15 blade Tissue Removed: fibrous, devitalized subcutaneous, biofilm, slough Severity: Fat Layer Exposed Amount of bleeding with debridement: Mild Bleeding Controlled with: Pressure Patient tolerated procedure: Patient tolerated procedure well - Additional Wound Wound debrided: posterior leg Laterality: Right Wound Grade/Stage: grade 1 Type of Debridement: Excisional debridement Anesthesia Used: 4% Lidocaine Solution Depth: in the subcutaneous layer Percentage of wound debrided: 100 Instrument Used: #15 blade Tissue Removed: fibrous, devitalized subcutaneous, biofilm, slough Severity: Fat Layer Exposed Amount of bleeding with debridement: Mild Bleeding Controlled with: Pressure Patient tolerated procedure: Patient tolerated procedure well - Additional Wound Wound debrided: lateral leg Laterality: Right Wound Grade/Stage: grade 1 Type of Debridement: Excisional debridement Anesthesia Used: 4% Lidocaine Solution Depth: in the subcutaneous layer Percentage of wound debrided: 100 Instrument Used: #15 blade Tissue Removed: fibrous, devitalized subcutaneous, biofilm, slough Severity: Fat Layer Exposed Amount of bleeding with debridement: Mild Bleeding Controlled with: Pressure Patient tolerated procedure: Patient tolerated procedure well - Additional Wound Wound debrided: posterior leg Wound Grade/Stage: grade 2 Type of Debridement: Excisional debridement Anesthesia Used: 4% Lidocaine Solution Depth: in the subcutaneous layer, to muscle Percentage of wound debrided: 90 - subcutaneous, 10 - muscle Instrument Used: #15 blade Tissue Removed: fibrous, devitalized subcutaneous, biofilm, slough Severity: Fat Layer Exposed Amount of bleeding with debridement: Mild Bleeding Controlled with: Pressure Patient tolerated procedure: Patient tolerated procedure well - Additional Wound Wound debrided: lateral leg Laterality: Left Wound Grade/Stage: grade 1 Type of Debridement: Excisional debridement Anesthesia Used: 4% Lidocaine Solution Depth: in the subcutaneous layer Percentage of wound debrided: 100 Instrument Used: #15 blade Tissue Removed: fibrous, devitalized subcutaneous, biofilm, slough Severity: Fat Layer Exposed Amount of bleeding with debridement: Mild Bleeding Controlled with: Pressure Patient tolerated procedure: Patient tolerated procedure well Assessment/Plan Active Problems Skin ulcer of right knee with fat layer exposed (Chronic) Skin ulcer of left knee with fat layer exposed (Chronic) Delayed wound healing (Chronic) Smoker (Chronic) 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 (Chronic) Ulcer of right lower extremity with fat layer exposed (Chronic) Ulcer of left lower extremity with fat layer exposed (Chronic) Ulcer of right foot with necrosis of muscle (Chronic) Type 2 diabetes mellitus with diabetic polyneuropathy (Chronic) Localized edema (Chronic) Malnutrition (Chronic) DM2 (diabetes mellitus, type 2) (Chronic) Assessment: Open second third ray resection secondary to 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 Diabetic neuropathy. Malnutrition suspected. 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 Delayed healing. Gait impairment and fall risk. Other comorbidities, right knee ulcer, tendon exposed (Dr. Gilbert managed), left knee ulcer (Dr. Gilbert managed) Plan: I reviewed and discussed his case with the patient and the patient's . Subcutaneous and non viable tendon/muscle debridements were performed as noted in the clinical panel. Recommended changing the dressings daily with [facility] facility staff assistance with santyl to knees and aquacel ag to the leg ulcers. I also recommend continued wound VAC changes to the right foot that extends to the medial ankle every 3 days. He was reassured no worsening status or local external to today. The ulcer sites have improved quality with granulation tissue. He had 6 weeks of IV antibiotic of Unasyn. Infectious disease was on consult during his last [facility] admission. I recommend he avoids laying directly on his wounds to reduce pressure, and I was concerned about his perfusion to his limbs. He had an arterial Doppler scheduled with Dr. Morgan's staff on August 02, 2018 and overall perfusion was confirmed; additional intervention or workup was not recommended. To continue with nutritional supplementation optimize healing; I recommend Juan. I recommend he sustained from smoking and alcohol activities to optimize healing as well. His workup for vasculitis and underlying autoimmune disorder is also pending. A punch biopsy was sent during his last surgical intervention on June 10 and this demonstrated inflammatory changes without malignancy. He had initial screening labs and so far he has a negative RA titer, HL of the 27, KEVIN, anti-CCP, and rheumatoid factor. Several his antibody screenings were not reportable. I have communicated this workup with his current managing physician at [facility], Dr. Perdomo, to see if additional recommendations or workup is indicated. He is home now. I will further forward this information along to his primary care physician, Dr. Sparks. Hyperbaric oxygen therapy may be considered if he is stable enough. I am concerned about his cardiac output. He understands his goals are infection prevention, pain control, and functional progression. I answered all his questions. Dr. Gilbert continues to manage his bilateral knee ulcers including debridements and traditional wound care plan. He will follow up with another wound care center provider next week specifically for debridement and evaluation of these knee sites. I recommend same-day surgery versa jet debridement with application of advanced wound care products including epi cord, amnio fill, and amnio fix product line derived from amniotic cord cells and umbilical cord cells. The surgical elastic knitter hand frame will contact him and initiate insurance prior authorization. He would like to think about this for a couple of days and we will follow-up with him with a phone call to confirm if we should proceed forward. The benefits, indications, planned procedure, possible benefits risks and anticipated healing time is were discussed. He understands this is a staged procedure and oftentimes serial applications are required. I recommend further follow-up at the wound care center 1 week with me, or call sooner if he has any questions.
[2018-09-14 10:53] VITALS: BP 135/71; PULSE 111; RESP 16; TEMP 36
--- NOTE | 2018-09-14 12:10 | PCM.WC.PN ---
(1) Skin ulcer of right knee with fat layer exposed Status: Chronic Current Visit: Yes Code(s): L97.812 - Non-pressure chronic ulcer of other part of right lower leg with fat layer exposed (2) Skin ulcer of left knee with fat layer exposed Status: Chronic Current Visit: Yes Code(s): L97.822 - Non-pressure chronic ulcer of other part of left lower leg with fat layer exposed (3) DM2 (diabetes mellitus, type 2) Status: Chronic Current Visit: Yes Code(s): E11.9 - Type 2 diabetes mellitus without complications Type of Wound Chief Complaint: right and left Leg ulcers and right foot ulcer History of Wound: Mr. Arguello is a 63-year-old male with multiple comorbidities follows up for delayed healing ulcers to the right foot as well as bilateral legs. It is noted he previously had widespread debridements and fasciotomies performed to bilateral lower extremities secondary to life-threatening and limb threatening infection; this was previously performed at [facility]. He continues to follow with Dr. Gilbert for her knee ulcers, and I saw him today for his other ulcer sites. He has been applying Santyl to both the wounds, Aquacel to leg ulcers, and wound VAC to right foot defect with quality improvement. He denies chills, fever or otherwise feeling of unwell. He presents today with his . He continues to smoke a half a pack of cigarettes daily. Progress of Wound: Stable. No new complaints at this time. - Physical Exam Vital Signs Temp Pulse Resp BP 96.8 F L 111 H 16 135/71 H 09/14/18 10:53 09/14/18 10:53 09/14/18 10:53 09/14/18 10:53 General: Alert, Oriented x3, Cooperative, No apparent distress HEENT: Atraumatic Oral: Moist Mucosa Neck: Supple Lungs: Normal air movement Abdomen: Non Tender Extremities: No cyanosis, Edema Skin: Ulcer/ Wound Wound Measurements and Assessment WC - Nurse 1 - General Ulcer Measurement Start: 08/24/18 12:02 Freq: Status: Active Protocol: Activity Type Activity Date Activity User E-Sign Co-Sign Detail Recorded Client Recorded Date Recorded By Document 09/14/18 10:53 [id number] 09/14/18 11:15 09/14/18 10:53 Wound Center Nurse 1 [Ulcer Assessment] 9.L knee -Combined with other wound No -Current Size (cm) - Length 0.5 -Current Size (cm) - Width 0.6 -Current Size (cm) - Depth 0.1 -Total Square Cm 0.30 -Photo Taken No -Epithelialization None Present -Necrosis Amt Large (67-100%) -Necrotic Tissue Type Eschar -Temperature (Lisa-wound Skin No Abnormality Appearance) (Pt Warm) -Tenderness on Palpation (Lisa-wound No Skin Appearance) -Ulcer Cleansing Rinsed/ Irrigated with Saline -Anesthetic Used 4% Lidocaine Solution #8 r Knee -Combined with other wound No -Current Size (cm) - Length 1.2 -Current Size (cm) - Width 1.5 -Current Size (cm) - Depth 0.2 -Total Square Cm 1.80 -Photo Taken No -Epithelialization None Present -Tunneling No -Undermining/Tunneling No -Circular Undermining No -Exudate Amt Medium (34-66%) -Exudate Type Yellow/Green -Wound Margin Distinct, Outline Attached -Granulation Amt Medium (34-66%) -Granulation Quality Pale [place] -Slough/Fibrin Yes -Necrosis Amt None Present (0 %) -Necrotic Tissue Type Adherent Slough -Moisture (Lisa-wound Skin Appearance Maceration ) -Color (Lisa-wound Skin Appearance) No Abnormality Assessed -Temperature (Lisa-wound Skin No Abnormality Appearance) (Pt Warm) -Tenderness on Palpation (Lisa-wound No Skin Appearance) -Ulcer Cleansing Rinsed/ Irrigated with Saline -Foul Odor after Cleansing No -Anesthetic Used 4% Lidocaine Solution #7 L Lat LE Cluster -Combined with other wound No -Current Size (cm) - Length 7 -Current Size (cm) - Width 2.5 -Current Size (cm) - Depth 0.1 -Total Square Cm 17.5 -Photo Taken No -Epithelialization None Present -Tunneling No -Undermining/Tunneling No -Circular Undermining No -Exudate Amt Small (1-33%) -Exudate Type Serosanguineous -Wound Margin Distinct, Outline Attached -Granulation Amt Medium (34-66%) -Granulation Quality [place] -Slough/Fibrin Yes -Necrosis Amt None Present (0 %) -Necrotic Tissue Type Adherent Slough -Color (Lisa-wound Skin Appearance) No Abnormality Assessed -Temperature (Lisa-wound Skin No Abnormality Appearance) (Pt Warm) -Tenderness on Palpation (Lisa-wound No Skin Appearance) -Ulcer Cleansing Rinsed/ Irrigated with Saline -Foul Odor after Cleansing No -Anesthetic Used 4% Lidocaine Solution #6 L Post -Combined with other wound No -Current Size (cm) - Length 21 -Current Size (cm) - Width 3 -Current Size (cm) - Depth 0.1 -Total Square Cm 63 -Photo Taken No -Epithelialization None Present -Tunneling No -Undermining/Tunneling No -Circular Undermining No -Exudate Amt Medium (34-66%) -Exudate Type Serosanguineous -Wound Margin Thickened -Granulation Amt None Present (0 %) -Slough/Fibrin Yes -Necrosis Amt None Present (0 %) -Necrotic Tissue Type Adherent Slough -Structure Exposed None/Limited to Skin Breakdown -Color (Lisa-wound Skin Appearance) Assessed [place] -Temperature (Lisa-wound Skin No Abnormality Appearance) (Pt Warm) -Tenderness on Palpation (Lisa-wound No Skin Appearance) -Ulcer Cleansing Rinsed/ Irrigated with Saline -Foul Odor after Cleansing No -Anesthetic Used 4% Lidocaine Solution #5 R Lat LE -Combined with other wound No -Current Size (cm) - Length 3.6 -Current Size (cm) - Width 3 -Current Size (cm) - Depth 0.1 -Total Square Cm 10.8 -Photo Taken No -Epithelialization None Present -Tunneling No -Undermining/Tunneling No -Circular Undermining No -Exudate Amt Large (67-100%) -Exudate Type Serous -Wound Margin Distinct, Outline Attached -Granulation Amt Medium (34-66%) -Granulation Quality Red -Slough/Fibrin Yes -Necrosis Amt None Present (0 %) -Necrotic Tissue Type Adherent Slough -Structure Exposed None/Limited to Skin Breakdown -Texture (Lisa-wound Skin Appearance) No Abnormality Assessed -Color (Lisa-wound Skin Appearance) No Abnormality Assessed -Temperature (Lisa-wound Skin No Abnormality Appearance) (Pt Warm) -Tenderness on Palpation (Lisa-wound No Skin Appearance) -Ulcer Cleansing Rinsed/ Irrigated with Saline -Foul Odor after Cleansing No -Anesthetic Used 4% Lidocaine Solution #4 R post LE -Combined with other wound No -Current Size (cm) - Length 1.6 -Current Size (cm) - Width 1 -Current Size (cm) - Depth 0.2 -Total Square Cm 1.6 -Photo Taken No -Epithelialization None Present -Tunneling No -Undermining/Tunneling No -Circular Undermining No -Exudate Amt Medium (34-66%) -Exudate Type Serous -Wound Margin Distinct, Outline Attached -Slough/Fibrin Yes -Necrosis Amt None Present (0 %) -Necrotic Tissue Type Adherent Slough -Structure Exposed None/Limited to Skin Breakdown -Color (Lisa-wound Skin Appearance) No Abnormality Assessed -Temperature (Lisa-wound Skin No Abnormality Appearance) (Pt Warm) -Tenderness on Palpation (Lisa-wound Yes Skin Appearance) -Ulcer Cleansing Rinsed/ Irrigated with Saline -Foul Odor after Cleansing No -Anesthetic Used 4% Lidocaine Solution #3 R Med LE -Combined with other wound No -Current Size (cm) - Length 3.7 -Current Size (cm) - Width 1.6 -Current Size (cm) - Depth 0.3 -Total Square Cm 5.92 -Photo Taken No -Epithelialization None Present -Tunneling No -Granulation Quality Red -Slough/Fibrin Yes -Necrosis Amt None Present (0 %) -Necrotic Tissue Type Adherent Slough -Structure Exposed None/Limited to Skin Breakdown -Texture (Lisa-wound Skin Appearance) No Abnormality Assessed -Temperature (Lisa-wound Skin No Abnormality Appearance) (Pt Warm) -Tenderness on Palpation (Lisa-wound Yes Skin Appearance) -Ulcer Cleansing Rinsed/ Irrigated with Saline -Foul Odor after Cleansing No -Anesthetic Used 4% Lidocaine Solution #2 R [place] Cluster -Combined with other wound No -Current Size (cm) - Length 15 -Current Size (cm) - Width 5 -Current Size (cm) - Depth 0.1 -Total Square Cm 75 -Photo Taken No -Epithelialization None Present -Tunneling No -Undermining/Tunneling No -Circular Undermining No -Temperature (Lisa-wound Skin No Abnormality Appearance) (Pt Warm) -Tenderness on Palpation (Lisa-wound No Skin Appearance) -Ulcer Cleansing Rinsed/ Irrigated with Saline -Foul Odor after Cleansing No -Anesthetic Used 4% Lidocaine Solution #1 R 2nd toe amp/Arch/ Med Ankle -Combined with other wound No -Current Size (cm) - Length 31 -Current Size (cm) - Width 4.5 -Current Size (cm) - Depth 1.0 -Total Square Cm 139.5 -Photo Taken No -Epithelialization None Present -Tunneling No -Undermining/Tunneling No -Exudate Amt Large (67-100%) -Exudate Type Serous -Wound Margin Distinct, Outline Attached -Granulation Amt Large (67-100%) -Granulation Quality Red -Slough/Fibrin Yes -Necrosis Amt None Present (0 %) -Necrotic Tissue Type Adherent Slough -Structure Exposed None/Limited to Skin Breakdown -Texture (Lisa-wound Skin Appearance) No Abnormality Assessed -Moisture (Lisa-wound Skin Appearance No Abnormality ) Assessed -Color (Lisa-wound Skin Appearance) No Abnormality Assessed -Temperature (Lisa-wound Skin No Abnormality Appearance) (Pt Warm) -Tenderness on Palpation (Lisa-wound No Skin Appearance) -Ulcer Cleansing Rinsed/ Irrigated with Saline -Foul Odor after Cleansing Yes -Anesthetic Used 4% Lidocaine Solution [Edema Assessment] -Lower Limb Edema Present NA WC - Nurse 2 - General Ulcer CM Notes Start: 08/24/18 12:02 Freq: Status: Active Protocol: Activity Type Activity Date Activity User E-Sign Co-Sign Detail Recorded Client Recorded Date Recorded By Document 09/14/18 11:38 [id number] 09/14/18 11:41 Document 09/14/18 11:43 [id number] 09/14/18 11:50 09/14/18 09/14/18 11:38 11:43 Wound Center Nurse 2 [Procedure/Treatment] 9.L knee -Time 11:43 -Correct Patient No Yes -Correct Side, Site, Position No Yes -Correct Procedure No Yes -Procedure Performed No Yes -Type of Procedure Debridement -Clinical Debridement Subcutaneous -Post Debridement Size (cm) - Length 0.3 -Post Debridement Size (cm) - Width 0.7 -Post Debridement Size (cm) - Depth 0.1 -Total Square Cm 0.21 -Wound/Ulcer Outcome Not Healed -Ulcer Cleansing Rinsed/ Irrigated with Saline -Foul Odor after Cleansing No -Bioengineered Tissue No -Bleeding Controlled with Pressure -Treatment Response Procedure Tolerated Well #8 r Knee -Time 11:43 -Correct Patient No Yes -Correct Side, Site, Position No Yes -Correct Procedure No Yes -Procedure Performed No Yes -Type of Procedure Debridement -Clinical Debridement Subcutaneous -Post Debridement Size (cm) - Length 1.0 -Post Debridement Size (cm) - Width 1.9 -Post Debridement Size (cm) - Depth 0.3 -Total Square Cm 1.90 -Wound/Ulcer Outcome Not Healed -Ulcer Cleansing Rinsed/ Irrigated with Saline -Foul Odor after Cleansing No -Bioengineered Tissue No -Bleeding Controlled with Pressure -Treatment Response Procedure Tolerated Well #7 L Lat LE Cluster -Time 11:38 -Correct Patient Yes -Correct Side, Site, Position Yes -Correct Procedure Yes -Procedure Performed Yes -Type of Procedure Debridement -Clinical Debridement Subcutaneous -Post Debridement Size (cm) - Length 7 -Post Debridement Size (cm) - Width 2.6 -Post Debridement Size (cm) - Depth 0.2 -Total Square Cm 18.2 -Wound/Ulcer Outcome Not Healed -Ulcer Cleansing Rinsed/ Irrigated with Saline -Foul Odor after Cleansing No -Bioengineered Tissue No -Bleeding Controlled with Pressure -Treatment Response Procedure Tolerated Well #6 L Post -Time 11:39 -Correct Patient Yes -Correct Side, Site, Position Yes -Correct Procedure Yes -Procedure Performed Yes -Type of Procedure Debridement -Clinical Debridement Subcutaneous -Post Debridement Size (cm) - Length 21.1 -Post Debridement Size (cm) - Width 3 -Post Debridement Size (cm) - Depth 0.1 -Total Square Cm 63.3 -Wound/Ulcer Outcome Not Healed -Ulcer Cleansing Rinsed/ Irrigated with Saline -Foul Odor after Cleansing No -Bioengineered Tissue No -Bleeding Controlled with Pressure -Treatment Response Procedure Tolerated Well #5 R Lat LE -Time 11:39 -Correct Patient Yes -Correct Side, Site, Position Yes -Correct Procedure Yes -Procedure Performed Yes -Type of Procedure Debridement -Clinical Debridement Subcutaneous -Post Debridement Size (cm) - Length 3.5 -Post Debridement Size (cm) - Width 3 -Post Debridement Size (cm) - Depth 0.1 -Total Square Cm 10.5 -Wound/Ulcer Outcome Not Healed -Ulcer Cleansing Rinsed/ Irrigated with Saline -Foul Odor after Cleansing No -Bioengineered Tissue No -Bleeding Controlled with Pressure -Treatment Response Procedure Tolerated Well #4 R post LE -Time 11:39 -Correct Patient Yes -Correct Side, Site, Position Yes -Correct Procedure Yes -Procedure Performed Yes -Type of Procedure Debridement -Clinical Debridement Subcutaneous -Post Debridement Size (cm) - Length 1.3 -Post Debridement Size (cm) - Width 1 -Post Debridement Size (cm) - Depth 0.2 -Total Square Cm 1.3 -Wound/Ulcer Outcome Not Healed -Ulcer Cleansing Rinsed/ Irrigated with Saline -Foul Odor after Cleansing No -Bioengineered Tissue No -Bleeding Controlled with Pressure -Treatment Response Procedure Tolerated Well #3 R Med LE -Time 11:40 -Correct Patient Yes -Correct Side, Site, Position Yes -Correct Procedure Yes -Procedure Performed Yes -Type of Procedure Debridement -Clinical Debridement Subcutaneous -Post Debridement Size (cm) - Length 3.8 -Post Debridement Size (cm) - Width 1.6 -Post Debridement Size (cm) - Depth 0.3 -Total Square Cm 6.08 -Wound/Ulcer Outcome Not Healed -Ulcer Cleansing Rinsed/ Irrigated with Saline -Foul Odor after Cleansing No -Bioengineered Tissue No -Bleeding Controlled with Pressure -Treatment Response Procedure Tolerated Well #2 R [place] Cluster -Time 11:40 -Correct Patient Yes -Correct Side, Site, Position Yes -Correct Procedure Yes -Procedure Performed Yes -Type of Procedure Debridement -Clinical Debridement Subcutaneous -Post Debridement Size (cm) - Length 15 -Post Debridement Size (cm) - Width 5.1 -Post Debridement Size (cm) - Depth 0.1 -Total Square Cm 76.5 -Wound/Ulcer Outcome Not Healed -Ulcer Cleansing Rinsed/ Irrigated with Saline -Foul Odor after Cleansing No -Bioengineered Tissue No -Bleeding Controlled with Pressure -Treatment Response Procedure Tolerated Well #1 R 2nd toe amp/Arch/ Med Ankle -Time 11:41 -Correct Patient Yes -Correct Side, Site, Position Yes -Correct Procedure Yes -Procedure Performed Yes -Type of Procedure Debridement -Clinical Debridement Subcutaneous -Post Debridement Size (cm) - Length 31.1 -Post Debridement Size (cm) - Width 4.5 -Post Debridement Size (cm) - Depth 0.1 -Total Square Cm 139.95 -Wound/Ulcer Outcome Not Healed -Ulcer Cleansing Rinsed/ Irrigated with Saline -Foul Odor after Cleansing No -Bioengineered Tissue No -Bleeding Controlled with Pressure -Treatment Response Procedure Tolerated Well [See Physician Procedure note for Specifics] Pain Scale: 0-10 Numeric [Pain] -Is Patient Pain Free? Yes Musculoskeletal: No Muscle Wasting Neurological: Cranial nerves II-XII grossly intact Psych/Mental Status: Normal Affect Debridement Note Post-Debridement Measurements/Treatment WC - Nurse 2 - General Ulcer CM Notes Start: 08/24/18 12:02 Freq: Status: Active Protocol: Activity Type Activity Date Activity User E-Sign Co-Sign Detail Recorded Client Recorded Date Recorded By Document 08/24/18 12:18 MW [id number] 08/24/18 12:24 MW Document 09/07/18 09:37 MW [id number] 09/07/18 09:41 MW Document 09/07/18 10:12 TM [id number] 09/07/18 10:17 TM Document 09/14/18 11:38 JF [id number] 09/14/18 11:41 JF Document 09/14/18 11:43 JF [id number] 09/14/18 11:50 JF 08/24/18 09/07/18 09/07/18 12:18 09:37 10:12 Wound Center Nurse 2 9.L knee -Time 12:19 09:38 10:12 -Correct Patient Yes Yes Yes -Correct Side, Site, Position Yes Yes Yes -Correct Procedure Yes Yes Yes -Procedure Performed Yes Yes Yes -Type of Procedure Debridement Debridement -Clinical Debridement Subcutaneous Subcutaneous -Post Debridement Size (cm) - Length 0.3 0.4 -Post Debridement Size (cm) - Width 1.2 1.0 -Post Debridement Size (cm) - Depth 0.1 0.2 -Total Square Cm 0.36 0.40 -Wound/Ulcer Outcome Not Healed Not Healed Not Healed -Ulcer Cleansing Rinsed/ Rinsed/ Rinsed/ Irrigated with Irrigated with Irrigated with Saline Saline Saline -Foul Odor after Cleansing No No No -Bioengineered Tissue No No No -Topical Lidocaine (%) 4 -Bleeding Controlled with Pressure Pressure Pressure -Treatment Response Procedure Procedure Tolerated Well Tolerated Well #8 r Knee -Time 12:19 09:38 10:12 -Correct Patient Yes Yes Yes -Correct Side, Site, Position Yes Yes Yes -Correct Procedure Yes Yes Yes -Procedure Performed Yes Yes Yes -Type of Procedure Debridement Debridement -Clinical Debridement Subcutaneous Subcutaneous -Post Debridement Size (cm) - Length 1.3 1.2 -Post Debridement Size (cm) - Width 2.0 1.7 -Post Debridement Size (cm) - Depth 0.3 0.3 -Total Square Cm 2.60 2.04 -Wound/Ulcer Outcome Not Healed Not Healed Not Healed -Ulcer Cleansing Rinsed/ Rinsed/ Rinsed/ Irrigated with Irrigated with Irrigated with Saline Saline Saline -Foul Odor after Cleansing No No No -Bioengineered Tissue No No No -Bleeding Controlled with Pressure Pressure NA -Other circular undermining @10 , 1.4cm -Treatment Response Procedure Procedure Tolerated Well Tolerated Well #7 L Lat LE Cluster -Time 10:13 -Correct Patient Yes -Correct Side, Site, Position Yes -Correct Procedure Yes -Procedure Performed Yes -Type of Procedure Debridement -Clinical Debridement Subcutaneous -Post Debridement Size (cm) - Length 7.7 -Post Debridement Size (cm) - Width 2.9 -Post Debridement Size (cm) - Depth 0.1 -Total Square Cm 22.33 -Wound/Ulcer Outcome Not Healed -Ulcer Cleansing Rinsed/ Irrigated with Saline -Foul Odor after Cleansing No -Bioengineered Tissue No -Topical Lidocaine (%) 4 -Bleeding Controlled with Pressure -Treatment Response Procedure Tolerated Well #6 L Post -Time 10:13 -Correct Patient Yes -Correct Side, Site, Position Yes -Correct Procedure Yes -Procedure Performed Yes -Type of Procedure Debridement -Clinical Debridement Muscle -Post Debridement Size (cm) - Length 7.3 -Post Debridement Size (cm) - Width 22.7 -Post Debridement Size (cm) - Depth 0.2 -Total Square Cm 165.71 -Wound/Ulcer Outcome Not Healed -Ulcer Cleansing Rinsed/ Irrigated with Saline -Foul Odor after Cleansing No -Bioengineered Tissue No -Topical Lidocaine (%) 4 -Bleeding Controlled with Pressure -Treatment Response Procedure Tolerated Well #5 R Lat LE -Time 10:14 -Correct Patient Yes -Correct Side, Site, Position Yes -Correct Procedure Yes -Procedure Performed Yes -Type of Procedure Debridement -Clinical Debridement Subcutaneous -Post Debridement Size (cm) - Length 4.7 -Post Debridement Size (cm) - Width 2.4 -Post Debridement Size (cm) - Depth 0.1 -Total Square Cm 11.28 -Wound/Ulcer Outcome Not Healed -Ulcer Cleansing Rinsed/ Irrigated with Saline -Foul Odor after Cleansing No -Bioengineered Tissue No -Topical Lidocaine (%) 4 -Bleeding Controlled with Pressure -Treatment Response Procedure Tolerated Well #4 R post LE -Time 10:15 -Correct Patient Yes -Correct Side, Site, Position Yes -Correct Procedure Yes -Procedure Performed Yes -Type of Procedure Debridement -Clinical Debridement Subcutaneous -Post Debridement Size (cm) - Length 2.1 -Post Debridement Size (cm) - Width 1.3 -Post Debridement Size (cm) - Depth 0.1 -Total Square Cm 2.73 -Wound/Ulcer Outcome Not Healed -Ulcer Cleansing Rinsed/ Irrigated with Saline -Foul Odor after Cleansing No -Bioengineered Tissue No -Topical Lidocaine (%) 4 -Bleeding Controlled with Pressure -Treatment Response Procedure Tolerated Well #3 R Med LE -Time 10:15 -Correct Patient Yes -Correct Side, Site, Position Yes -Correct Procedure Yes -Procedure Performed Yes -Type of Procedure Debridement -Clinical Debridement Subcutaneous -Post Debridement Size (cm) - Length 4.5 -Post Debridement Size (cm) - Width 0.9 -Post Debridement Size (cm) - Depth 0.3 -Total Square Cm 4.05 -Wound/Ulcer Outcome Not Healed -Ulcer Cleansing Rinsed/ Irrigated with Saline -Foul Odor after Cleansing No -Bioengineered Tissue No -Topical Lidocaine (%) 4 -Bleeding Controlled with Pressure -Treatment Response Procedure Tolerated Well #2 R [place] Cluster -Time 10:15 -Correct Patient Yes -Correct Side, Site, Position Yes -Correct Procedure Yes -Procedure Performed Yes -Type of Procedure Debridement -Clinical Debridement Subcutaneous -Post Debridement Size (cm) - Length 16.1 -Post Debridement Size (cm) - Width 4.6 -Post Debridement Size (cm) - Depth 0.2 -Total Square Cm 74.06 -Wound/Ulcer Outcome Not Healed -Ulcer Cleansing Rinsed/ Irrigated with Saline -Foul Odor after Cleansing No -Bioengineered Tissue No -Topical Lidocaine (%) 4 -Bleeding Controlled with Pressure -Treatment Response Procedure Tolerated Well #1 R 2nd toe amp/Arch/ Med Ankle -Time 10:16 -Correct Patient Yes -Correct Side, Site, Position Yes -Correct Procedure Yes -Procedure Performed Yes -Type of Procedure Debridement -Clinical Debridement Muscle -Post Debridement Size (cm) - Length 33.4 -Post Debridement Size (cm) - Width 4.1 -Post Debridement Size (cm) - Depth 2.2 -Total Square Cm 136.94 -Wound/Ulcer Outcome Not Healed -Ulcer Cleansing Rinsed/ Irrigated with Saline -Foul Odor after Cleansing No -Bioengineered Tissue No -Topical Lidocaine (%) 4 -Bleeding Controlled with Pressure -Treatment Response Procedure Tolerated Well Pain Scale: 0-10 Numeric Is Patient Pain Free? Yes 18 18 11:38 11:43 Wound Center Nurse 2 9.L knee -Time 11:43 -Correct Patient No Yes -Correct Side, Site, Position No Yes -Correct Procedure No Yes -Procedure Performed No Yes -Type of Procedure Debridement -Clinical Debridement Subcutaneous -Post Debridement Size (cm) - Length 0.3 -Post Debridement Size (cm) - Width 0.7 -Post Debridement Size (cm) - Depth 0.1 -Total Square Cm 0.21 -Wound/Ulcer Outcome Not Healed -Ulcer Cleansing Rinsed/ Irrigated with Saline -Foul Odor after Cleansing No -Bioengineered Tissue No -Topical Lidocaine (%) -Bleeding Controlled with Pressure -Treatment Response Procedure Tolerated Well #8 r Knee -Time 11:43 -Correct Patient No Yes -Correct Side, Site, Position No Yes -Correct Procedure No Yes -Procedure Performed No Yes -Type of Procedure Debridement -Clinical Debridement Subcutaneous -Post Debridement Size (cm) - Length 1.0 -Post Debridement Size (cm) - Width 1.9 -Post Debridement Size (cm) - Depth 0.3 -Total Square Cm 1.90 -Wound/Ulcer Outcome Not Healed -Ulcer Cleansing Rinsed/ Irrigated with Saline -Foul Odor after Cleansing No -Bioengineered Tissue No -Bleeding Controlled with Pressure -Other -Treatment Response Procedure Tolerated Well #7 L Lat LE Cluster -Time 11:38 -Correct Patient Yes -Correct Side, Site, Position Yes -Correct Procedure Yes -Procedure Performed Yes -Type of Procedure Debridement -Clinical Debridement Subcutaneous -Post Debridement Size (cm) - Length 7 -Post Debridement Size (cm) - Width 2.6 -Post Debridement Size (cm) - Depth 0.2 -Total Square Cm 18.2 -Wound/Ulcer Outcome Not Healed -Ulcer Cleansing Rinsed/ Irrigated with Saline -Foul Odor after Cleansing No -Bioengineered Tissue No -Topical Lidocaine (%) -Bleeding Controlled with Pressure -Treatment Response Procedure Tolerated Well #6 L Post -Time 11:39 -Correct Patient Yes -Correct Side, Site, Position Yes -Correct Procedure Yes -Procedure Performed Yes -Type of Procedure Debridement -Clinical Debridement Subcutaneous -Post Debridement Size (cm) - Length 21.1 -Post Debridement Size (cm) - Width 3 -Post Debridement Size (cm) - Depth 0.1 -Total Square Cm 63.3 -Wound/Ulcer Outcome Not Healed -Ulcer Cleansing Rinsed/ Irrigated with Saline -Foul Odor after Cleansing No -Bioengineered Tissue No -Topical Lidocaine (%) -Bleeding Controlled with Pressure -Treatment Response Procedure Tolerated Well #5 R Lat LE -Time 11:39 -Correct Patient Yes -Correct Side, Site, Position Yes -Correct Procedure Yes -Procedure Performed Yes -Type of Procedure Debridement -Clinical Debridement Subcutaneous -Post Debridement Size (cm) - Length 3.5 -Post Debridement Size (cm) - Width 3 -Post Debridement Size (cm) - Depth 0.1 -Total Square Cm 10.5 -Wound/Ulcer Outcome Not Healed -Ulcer Cleansing Rinsed/ Irrigated with Saline -Foul Odor after Cleansing No -Bioengineered Tissue No -Topical Lidocaine (%) -Bleeding Controlled with Pressure -Treatment Response Procedure Tolerated Well #4 R post LE -Time 11:39 -Correct Patient Yes -Correct Side, Site, Position Yes -Correct Procedure Yes -Procedure Performed Yes -Type of Procedure Debridement -Clinical Debridement Subcutaneous -Post Debridement Size (cm) - Length 1.3 -Post Debridement Size (cm) - Width 1 -Post Debridement Size (cm) - Depth 0.2 -Total Square Cm 1.3 -Wound/Ulcer Outcome Not Healed -Ulcer Cleansing Rinsed/ Irrigated with Saline -Foul Odor after Cleansing No -Bioengineered Tissue No -Topical Lidocaine (%) -Bleeding Controlled with Pressure -Treatment Response Procedure Tolerated Well #3 R Med LE -Time 11:40 -Correct Patient Yes -Correct Side, Site, Position Yes -Correct Procedure Yes -Procedure Performed Yes -Type of Procedure Debridement -Clinical Debridement Subcutaneous -Post Debridement Size (cm) - Length 3.8 -Post Debridement Size (cm) - Width 1.6 -Post Debridement Size (cm) - Depth 0.3 -Total Square Cm 6.08 -Wound/Ulcer Outcome Not Healed -Ulcer Cleansing Rinsed/ Irrigated with Saline -Foul Odor after Cleansing No -Bioengineered Tissue No -Topical Lidocaine (%) -Bleeding Controlled with Pressure -Treatment Response Procedure Tolerated Well #2 R [place] Cluster -Time 11:40 -Correct Patient Yes -Correct Side, Site, Position Yes -Correct Procedure Yes -Procedure Performed Yes -Type of Procedure Debridement -Clinical Debridement Subcutaneous -Post Debridement Size (cm) - Length 15 -Post Debridement Size (cm) - Width 5.1 -Post Debridement Size (cm) - Depth 0.1 -Total Square Cm 76.5 -Wound/Ulcer Outcome Not Healed -Ulcer Cleansing Rinsed/ Irrigated with Saline -Foul Odor after Cleansing No -Bioengineered Tissue No -Topical Lidocaine (%) -Bleeding Controlled with Pressure -Treatment Response Procedure Tolerated Well #1 R 2nd toe amp/Arch/ Med Ankle -Time 11:41 -Correct Patient Yes -Correct Side, Site, Position Yes -Correct Procedure Yes -Procedure Performed Yes -Type of Procedure Debridement -Clinical Debridement Subcutaneous -Post Debridement Size (cm) - Length 31.1 -Post Debridement Size (cm) - Width 4.5 -Post Debridement Size (cm) - Depth 0.1 -Total Square Cm 139.95 -Wound/Ulcer Outcome Not Healed -Ulcer Cleansing Rinsed/ Irrigated with Saline -Foul Odor after Cleansing No -Bioengineered Tissue No -Topical Lidocaine (%) -Bleeding Controlled with Pressure -Treatment Response Procedure Tolerated Well Pain Scale: 0-10 Numeric Is Patient Pain Free? Yes Wound debrided: Right knee Wound Grade/Stage: Stage III Type of Debridement: Excisional debridement Anesthesia Used: 4% Lidocaine Solution Depth: Down to and including healthy tissue, in the subcutaneous layer Percentage of wound debrided: 100 Instrument Used: 7mm curette Tissue Removed: Slough and devitalized tissue Severity: Fat Layer Exposed Amount of bleeding with debridement: Mild Bleeding Controlled with: Pressure Patient tolerated procedure well - Additional Wound Wound debrided: Left knee Wound Grade/Stage: Stage II Type of Debridement: Excisional debridement Anesthesia Used: 4% Lidocaine Solution Depth: Down to and including healthy tissue, in the subcutaneous layer Percentage of wound debrided: 100 Instrument Used: 7mm curette, - - 1 mm Tissue Removed: Slough and devitalized tissue Severity: Fat Layer Exposed Amount of bleeding with debridement: Mild Bleeding Controlled with: Pressure Patient tolerated procedure: Patient tolerated procedure well Assessment/Plan Active Problems Skin ulcer of right knee with fat layer exposed (Chronic) Skin ulcer of left knee with fat layer exposed (Chronic) Delayed wound healing (Chronic) Smoker (Chronic) 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 (Chronic) Ulcer of right lower extremity with fat layer exposed (Chronic) Ulcer of left lower extremity with fat layer exposed (Chronic) Ulcer of right foot with necrosis of muscle (Chronic) Type 2 diabetes mellitus with diabetic polyneuropathy (Chronic) Localized edema (Chronic) Malnutrition (Chronic) DM2 (diabetes mellitus, type 2) (Chronic) Assessment: Open second third ray resection secondary to 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 Diabetic neuropathy. Malnutrition suspected. 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 Delayed healing. Gait impairment and fall risk. Other comorbidities, right knee ulcer, tendon exposed (Dr. Gilbert managed), left knee ulcer (Dr. Gilbert managed) Plan: No new complaints at this time. Both wounds appear stable. Debridement done as documented above, procedure was well-tolerated. Again scabbing of his left knee wound noted. Advised to clean wound daily before application of new treatment. Continue Alana daily with Adaptic over top. Also continue increased protein intake/ supplements and management of all other lower extremity ulcers per Dr. Gruber. Follow-up in 1 week. All their questions were addressed and they were asked to call with any further questions or concerns. This note was generated with [employer] software. It may contain incorrect words, spelling, and punctuation that were not noted in checking the note before signing.
--- NOTE | 2018-09-14 13:17 | PN.PCM_ITS ---
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 Current Visit: Yes Code(s): L97.923 - Non-pressure chronic ulcer of unspecified part of left lower leg with necrosis of muscle (3) Ulcer of right lower extremity with fat layer exposed Status: Chronic Current Visit: Yes Code(s): L97.912 - Non-pressure chronic ulcer of unspecified part of right lower leg with fat layer exposed (4) Ulcer of right foot with necrosis of muscle Status: Chronic Current Visit: Yes Code(s): L97.513 - Non-pressure chronic ulcer of other part of right foot with necrosis of muscle (5) Delayed wound healing Status: Chronic Current Visit: Yes Code(s): T14.8XXD - Other injury of unspecified body region, subsequent encounter (6) Smoker Status: Chronic Current Visit: Yes Code(s): F17.200 - Nicotine dependence, unspecified, uncomplicated (7) Vasculitis Status: Chronic Current Visit: Yes Code(s): I77.6 - Arteritis, unspecified (8) Type 2 diabetes mellitus with diabetic polyneuropathy Status: Chronic Current Visit: Yes Code(s): E11.42 - Type 2 diabetes mellitus with diabetic polyneuropathy (9) Localized edema Status: Chronic Current Visit: Yes Code(s): R60.0 - Localized edema (10) Malnutrition Status: Chronic Current Visit: Yes Code(s): E46 - Unspecified protein- calorie malnutrition Type of Wound Chief Complaint: right and left Leg ulcers and right foot ulcer History of Wound: Mr. Arguello is a 63-year-old male with multiple comorbidities follows up for delayed healing ulcers to the right foot as well as bilateral legs. It is noted he previously had widespread debridements and fasciotomies performed to bilateral lower extremities secondary to life-threatening and limb threatening infection; this was previously performed at [facility]. He continues to follow with Dr. Gilbert for her knee ulcers, and I saw him today for his other ulcer sites. He has been applying Santyl to both the wounds, Aquacel to leg ulcers, and wound VAC to right foot defect with quality improvement. He denies chills, fever or otherwise feeling of unwell. He presents today with his . He continues to smoke a half a pack of cigarettes daily. Progress of Wound: Stable. - Physical Exam Vital Signs Temp Pulse Resp BP 96.8 F L 111 H 16 135/71 H 09/14/18 10:53 09/14/18 10:53 09/14/18 10:53 09/14/18 10:53 General: Alert, Oriented x3, Cooperative Extremities: No cyanosis, Capillary Refill Less than 3 Seconds, No Calf Tenderness - Negative Errol and [place] sign bilateral, Diminished Peripheral Pulses, Edema - Mild bilateral lower extremities, - - Open ray resections to right foot are noted Skin: Ulcer/ Wound - No purulence, no erythema, no streaking, no odor, no infection. The peripheral skin is hairless and atrophic. There is no exposed bone today. There is exposed tendon and fascial tissue as noted in the clinical panel to the right foot, and left leg ulcer Wound Measurements and Assessment WC - Nurse 1 - General Ulcer Measurement Start: 08/24/18 12:02 Freq: Status: Active Protocol: Activity Type Activity Date Activity User E-Sign Co-Sign Detail Recorded Client Recorded Date Recorded By Document 09/14/18 10:53 [id number] 09/14/18 11:15 09/14/18 10:53 Wound Center Nurse 1 [Ulcer Assessment] 9.L knee -Combined with other wound No -Current Size (cm) - Length 0.5 -Current Size (cm) - Width 0.6 -Current Size (cm) - Depth 0.1 -Total Square Cm 0.30 -Photo Taken No -Epithelialization None Present -Necrosis Amt Large (67-100%) -Necrotic Tissue Type Eschar -Temperature (Lisa-wound Skin No Abnormality Appearance) (Pt Warm) -Tenderness on Palpation (Lisa-wound No Skin Appearance) -Ulcer Cleansing Rinsed/ Irrigated with Saline -Anesthetic Used 4% Lidocaine Solution #8 r Knee -Combined with other wound No -Current Size (cm) - Length 1.2 -Current Size (cm) - Width 1.5 -Current Size (cm) - Depth 0.2 -Total Square Cm 1.80 -Photo Taken No -Epithelialization None Present -Tunneling No -Undermining/Tunneling No -Circular Undermining No -Exudate Amt Medium (34-66%) -Exudate Type Yellow/Green -Wound Margin Distinct, Outline Attached -Granulation Amt Medium (34-66%) -Granulation Quality Pale [place] -Slough/Fibrin Yes -Necrosis Amt None Present (0 %) -Necrotic Tissue Type Adherent Slough -Moisture (Lisa-wound Skin Appearance Maceration ) -Color (Lisa-wound Skin Appearance) No Abnormality Assessed -Temperature (Lisa-wound Skin No Abnormality Appearance) (Pt Warm) -Tenderness on Palpation (Lisa-wound No Skin Appearance) -Ulcer Cleansing Rinsed/ Irrigated with Saline -Foul Odor after Cleansing No -Anesthetic Used 4% Lidocaine Solution #7 L Lat LE Cluster -Combined with other wound No -Current Size (cm) - Length 7 -Current Size (cm) - Width 2.5 -Current Size (cm) - Depth 0.1 -Total Square Cm 17.5 -Photo Taken No -Epithelialization None Present -Tunneling No -Undermining/Tunneling No -Circular Undermining No -Exudate Amt Small (1-33%) -Exudate Type Serosanguineous -Wound Margin Distinct, Outline Attached -Granulation Amt Medium (34-66%) -Granulation Quality [place] -Slough/Fibrin Yes -Necrosis Amt None Present (0 %) -Necrotic Tissue Type Adherent Slough -Color (Lisa-wound Skin Appearance) No Abnormality Assessed -Temperature (Lisa-wound Skin No Abnormality Appearance) (Pt Warm) -Tenderness on Palpation (Lisa-wound No Skin Appearance) -Ulcer Cleansing Rinsed/ Irrigated with Saline -Foul Odor after Cleansing No -Anesthetic Used 4% Lidocaine Solution #6 L Post -Combined with other wound No -Current Size (cm) - Length 21 -Current Size (cm) - Width 3 -Current Size (cm) - Depth 0.1 -Total Square Cm 63 -Photo Taken No -Epithelialization None Present -Tunneling No -Undermining/Tunneling No -Circular Undermining No -Exudate Amt Medium (34-66%) -Exudate Type Serosanguineous -Wound Margin Thickened -Granulation Amt None Present (0 %) -Slough/Fibrin Yes -Necrosis Amt None Present (0 %) -Necrotic Tissue Type Adherent Slough -Structure Exposed None/Limited to Skin Breakdown -Color (Lisa-wound Skin Appearance) Assessed [place] -Temperature (Lisa-wound Skin No Abnormality Appearance) (Pt Warm) -Tenderness on Palpation (Lisa-wound No Skin Appearance) -Ulcer Cleansing Rinsed/ Irrigated with Saline -Foul Odor after Cleansing No -Anesthetic Used 4% Lidocaine Solution #5 R Lat LE -Combined with other wound No -Current Size (cm) - Length 3.6 -Current Size (cm) - Width 3 -Current Size (cm) - Depth 0.1 -Total Square Cm 10.8 -Photo Taken No -Epithelialization None Present -Tunneling No -Undermining/Tunneling No -Circular Undermining No -Exudate Amt Large (67-100%) -Exudate Type Serous -Wound Margin Distinct, Outline Attached -Granulation Amt Medium (34-66%) -Granulation Quality Red -Slough/Fibrin Yes -Necrosis Amt None Present (0 %) -Necrotic Tissue Type Adherent Slough -Structure Exposed None/Limited to Skin Breakdown -Texture (Lisa-wound Skin Appearance) No Abnormality Assessed -Color (Lisa-wound Skin Appearance) No Abnormality Assessed -Temperature (Lisa-wound Skin No Abnormality Appearance) (Pt Warm) -Tenderness on Palpation (Lisa-wound No Skin Appearance) -Ulcer Cleansing Rinsed/ Irrigated with Saline -Foul Odor after Cleansing No -Anesthetic Used 4% Lidocaine Solution #4 R post LE -Combined with other wound No -Current Size (cm) - Length 1.6 -Current Size (cm) - Width 1 -Current Size (cm) - Depth 0.2 -Total Square Cm 1.6 -Photo Taken No -Epithelialization None Present -Tunneling No -Undermining/Tunneling No -Circular Undermining No -Exudate Amt Medium (34-66%) -Exudate Type Serous -Wound Margin Distinct, Outline Attached -Slough/Fibrin Yes -Necrosis Amt None Present (0 %) -Necrotic Tissue Type Adherent Slough -Structure Exposed None/Limited to Skin Breakdown -Color (Lisa-wound Skin Appearance) No Abnormality Assessed -Temperature (Lisa-wound Skin No Abnormality Appearance) (Pt Warm) -Tenderness on Palpation (Lisa-wound Yes Skin Appearance) -Ulcer Cleansing Rinsed/ Irrigated with Saline -Foul Odor after Cleansing No -Anesthetic Used 4% Lidocaine Solution #3 R Med LE -Combined with other wound No -Current Size (cm) - Length 3.7 -Current Size (cm) - Width 1.6 -Current Size (cm) - Depth 0.3 -Total Square Cm 5.92 -Photo Taken No -Epithelialization None Present -Tunneling No -Granulation Quality Red -Slough/Fibrin Yes -Necrosis Amt None Present (0 %) -Necrotic Tissue Type Adherent Slough -Structure Exposed None/Limited to Skin Breakdown -Texture (Lisa-wound Skin Appearance) No Abnormality Assessed -Temperature (Lisa-wound Skin No Abnormality Appearance) (Pt Warm) -Tenderness on Palpation (Lisa-wound Yes Skin Appearance) -Ulcer Cleansing Rinsed/ Irrigated with Saline -Foul Odor after Cleansing No -Anesthetic Used 4% Lidocaine Solution #2 R [place] Cluster -Combined with other wound No -Current Size (cm) - Length 15 -Current Size (cm) - Width 5 -Current Size (cm) - Depth 0.1 -Total Square Cm 75 -Photo Taken No -Epithelialization None Present -Tunneling No -Undermining/Tunneling No -Circular Undermining No -Temperature (Lisa-wound Skin No Abnormality Appearance) (Pt Warm) -Tenderness on Palpation (Lisa-wound No Skin Appearance) -Ulcer Cleansing Rinsed/ Irrigated with Saline -Foul Odor after Cleansing No -Anesthetic Used 4% Lidocaine Solution #1 R 2nd toe amp/Arch/ Med Ankle -Combined with other wound No -Current Size (cm) - Length 31 -Current Size (cm) - Width 4.5 -Current Size (cm) - Depth 1.0 -Total Square Cm 139.5 -Photo Taken No -Epithelialization None Present -Tunneling No -Undermining/Tunneling No -Exudate Amt Large (67-100%) -Exudate Type Serous -Wound Margin Distinct, Outline Attached -Granulation Amt Large (67-100%) -Granulation Quality Red -Slough/Fibrin Yes -Necrosis Amt None Present (0 %) -Necrotic Tissue Type Adherent Slough -Structure Exposed None/Limited to Skin Breakdown -Texture (Lisa-wound Skin Appearance) No Abnormality Assessed -Moisture (Lisa-wound Skin Appearance No Abnormality ) Assessed -Color (Lisa-wound Skin Appearance) No Abnormality Assessed -Temperature (Lisa-wound Skin No Abnormality Appearance) (Pt Warm) -Tenderness on Palpation (Lisa-wound No Skin Appearance) -Ulcer Cleansing Rinsed/ Irrigated with Saline -Foul Odor after Cleansing Yes -Anesthetic Used 4% Lidocaine Solution [Edema Assessment] -Lower Limb Edema Present NA WC - Nurse 2 - General Ulcer CM Notes Start: 08/24/18 12:02 Freq: Status: Active Protocol: Activity Type Activity Date Activity User E-Sign Co-Sign Detail Recorded Client Recorded Date Recorded By Document 09/14/18 11:38 [id number] 09/14/18 11:41 Document 09/14/18 11:43 [id number] 09/14/18 11:50 09/14/18 09/14/18 11:38 11:43 Wound Center Nurse 2 [Procedure/Treatment] 9.L knee -Time 11:43 -Correct Patient No Yes -Correct Side, Site, Position No Yes -Correct Procedure No Yes -Procedure Performed No Yes -Type of Procedure Debridement -Clinical Debridement Subcutaneous -Post Debridement Size (cm) - Length 0.3 -Post Debridement Size (cm) - Width 0.7 -Post Debridement Size (cm) - Depth 0.1 -Total Square Cm 0.21 -Wound/Ulcer Outcome Not Healed -Ulcer Cleansing Rinsed/ Irrigated with Saline -Foul Odor after Cleansing No -Bioengineered Tissue No -Bleeding Controlled with Pressure -Treatment Response Procedure Tolerated Well #8 r Knee -Time 11:43 -Correct Patient No Yes -Correct Side, Site, Position No Yes -Correct Procedure No Yes -Procedure Performed No Yes -Type of Procedure Debridement -Clinical Debridement Subcutaneous -Post Debridement Size (cm) - Length 1.0 -Post Debridement Size (cm) - Width 1.9 -Post Debridement Size (cm) - Depth 0.3 -Total Square Cm 1.90 -Wound/Ulcer Outcome Not Healed -Ulcer Cleansing Rinsed/ Irrigated with Saline -Foul Odor after Cleansing No -Bioengineered Tissue No -Bleeding Controlled with Pressure -Treatment Response Procedure Tolerated Well #7 L Lat LE Cluster -Time 11:38 -Correct Patient Yes -Correct Side, Site, Position Yes -Correct Procedure Yes -Procedure Performed Yes -Type of Procedure Debridement -Clinical Debridement Subcutaneous -Post Debridement Size (cm) - Length 7 -Post Debridement Size (cm) - Width 2.6 -Post Debridement Size (cm) - Depth 0.2 -Total Square Cm 18.2 -Wound/Ulcer Outcome Not Healed -Ulcer Cleansing Rinsed/ Irrigated with Saline -Foul Odor after Cleansing No -Bioengineered Tissue No -Bleeding Controlled with Pressure -Treatment Response Procedure Tolerated Well #6 L Post -Time 11:39 -Correct Patient Yes -Correct Side, Site, Position Yes -Correct Procedure Yes -Procedure Performed Yes -Type of Procedure Debridement -Clinical Debridement Subcutaneous -Post Debridement Size (cm) - Length 21.1 -Post Debridement Size (cm) - Width 3 -Post Debridement Size (cm) - Depth 0.1 -Total Square Cm 63.3 -Wound/Ulcer Outcome Not Healed -Ulcer Cleansing Rinsed/ Irrigated with Saline -Foul Odor after Cleansing No -Bioengineered Tissue No -Bleeding Controlled with Pressure -Treatment Response Procedure Tolerated Well #5 R Lat LE -Time 11:39 -Correct Patient Yes -Correct Side, Site, Position Yes -Correct Procedure Yes -Procedure Performed Yes -Type of Procedure Debridement -Clinical Debridement Subcutaneous -Post Debridement Size (cm) - Length 3.5 -Post Debridement Size (cm) - Width 3 -Post Debridement Size (cm) - Depth 0.1 -Total Square Cm 10.5 -Wound/Ulcer Outcome Not Healed -Ulcer Cleansing Rinsed/ Irrigated with Saline -Foul Odor after Cleansing No -Bioengineered Tissue No -Bleeding Controlled with Pressure -Treatment Response Procedure Tolerated Well #4 R post LE -Time 11:39 -Correct Patient Yes -Correct Side, Site, Position Yes -Correct Procedure Yes -Procedure Performed Yes -Type of Procedure Debridement -Clinical Debridement Subcutaneous -Post Debridement Size (cm) - Length 1.3 -Post Debridement Size (cm) - Width 1 -Post Debridement Size (cm) - Depth 0.2 -Total Square Cm 1.3 -Wound/Ulcer Outcome Not Healed -Ulcer Cleansing Rinsed/ Irrigated with Saline -Foul Odor after Cleansing No -Bioengineered Tissue No -Bleeding Controlled with Pressure -Treatment Response Procedure Tolerated Well #3 R Med LE -Time 11:40 -Correct Patient Yes -Correct Side, Site, Position Yes -Correct Procedure Yes -Procedure Performed Yes -Type of Procedure Debridement -Clinical Debridement Subcutaneous -Post Debridement Size (cm) - Length 3.8 -Post Debridement Size (cm) - Width 1.6 -Post Debridement Size (cm) - Depth 0.3 -Total Square Cm 6.08 -Wound/Ulcer Outcome Not Healed -Ulcer Cleansing Rinsed/ Irrigated with Saline -Foul Odor after Cleansing No -Bioengineered Tissue No -Bleeding Controlled with Pressure -Treatment Response Procedure Tolerated Well #2 R [place] Cluster -Time 11:40 -Correct Patient Yes -Correct Side, Site, Position Yes -Correct Procedure Yes -Procedure Performed Yes -Type of Procedure Debridement -Clinical Debridement Subcutaneous -Post Debridement Size (cm) - Length 15 -Post Debridement Size (cm) - Width 5.1 -Post Debridement Size (cm) - Depth 0.1 -Total Square Cm 76.5 -Wound/Ulcer Outcome Not Healed -Ulcer Cleansing Rinsed/ Irrigated with Saline -Foul Odor after Cleansing No -Bioengineered Tissue No -Bleeding Controlled with Pressure -Treatment Response Procedure Tolerated Well #1 R 2nd toe amp/Arch/ Med Ankle -Time 11:41 -Correct Patient Yes -Correct Side, Site, Position Yes -Correct Procedure Yes -Procedure Performed Yes -Type of Procedure Debridement -Clinical Debridement Subcutaneous -Post Debridement Size (cm) - Length 31.1 -Post Debridement Size (cm) - Width 4.5 -Post Debridement Size (cm) - Depth 0.1 -Total Square Cm 139.95 -Wound/Ulcer Outcome Not Healed -Ulcer Cleansing Rinsed/ Irrigated with Saline -Foul Odor after Cleansing No -Bioengineered Tissue No -Bleeding Controlled with Pressure -Treatment Response Procedure Tolerated Well [See Physician Procedure note for Specifics] Pain Scale: 0-10 Numeric [Pain] -Is Patient Pain Free? Yes Musculoskeletal: No Tenderness to Palpation of Joints or Extremities, Muscle Wasting, - - Compartments soft and palpation bilateral Neurological: - - Lack of epicritic sensation light touch consistent with neuropathy bilateral lower extremities Psych/Mental Status: Normal Affect, Appropriate Debridement Note Post-Debridement Measurements/Treatment WC - Nurse 2 - General Ulcer CM Notes Start: 08/24/18 12:02 Freq: Status: Active Protocol: Activity Type Activity Date Activity User E-Sign Co-Sign Detail Recorded Client Recorded Date Recorded By Document 08/24/18 12:18 MW [id number] 08/24/18 12:24 MW Document 09/07/18 09:37 MW [id number] 09/07/18 09:41 MW Document 09/07/18 10:12 TM [id number] 09/07/18 10:17 TM Document 09/14/18 11:38 JF [id number] 09/14/18 11:41 JF Document 09/14/18 11:43 JF [id number] 09/14/18 11:50 JF 08/24/18 09/07/18 09/07/18 12:18 09:37 10:12 Wound Center Nurse 2 9.L knee -Time 12:19 09:38 10:12 -Correct Patient Yes Yes Yes -Correct Side, Site, Position Yes Yes Yes -Correct Procedure Yes Yes Yes -Procedure Performed Yes Yes Yes -Type of Procedure Debridement Debridement -Clinical Debridement Subcutaneous Subcutaneous -Post Debridement Size (cm) - Length 0.3 0.4 -Post Debridement Size (cm) - Width 1.2 1.0 -Post Debridement Size (cm) - Depth 0.1 0.2 -Total Square Cm 0.36 0.40 -Wound/Ulcer Outcome Not Healed Not Healed Not Healed -Ulcer Cleansing Rinsed/ Rinsed/ Rinsed/ Irrigated with Irrigated with Irrigated with Saline Saline Saline -Foul Odor after Cleansing No No No -Bioengineered Tissue No No No -Topical Lidocaine (%) 4 -Bleeding Controlled with Pressure Pressure Pressure -Treatment Response Procedure Procedure Tolerated Well Tolerated Well #8 r Knee -Time 12:19 09:38 10:12 -Correct Patient Yes Yes Yes -Correct Side, Site, Position Yes Yes Yes -Correct Procedure Yes Yes Yes -Procedure Performed Yes Yes Yes -Type of Procedure Debridement Debridement -Clinical Debridement Subcutaneous Subcutaneous -Post Debridement Size (cm) - Length 1.3 1.2 -Post Debridement Size (cm) - Width 2.0 1.7 -Post Debridement Size (cm) - Depth 0.3 0.3 -Total Square Cm 2.60 2.04 -Wound/Ulcer Outcome Not Healed Not Healed Not Healed -Ulcer Cleansing Rinsed/ Rinsed/ Rinsed/ Irrigated with Irrigated with Irrigated with Saline Saline Saline -Foul Odor after Cleansing No No No -Bioengineered Tissue No No No -Bleeding Controlled with Pressure Pressure NA -Other circular undermining @10 , 1.4cm -Treatment Response Procedure Procedure Tolerated Well Tolerated Well #7 L Lat LE Cluster -Time 10:13 -Correct Patient Yes -Correct Side, Site, Position Yes -Correct Procedure Yes -Procedure Performed Yes -Type of Procedure Debridement -Clinical Debridement Subcutaneous -Post Debridement Size (cm) - Length 7.7 -Post Debridement Size (cm) - Width 2.9 -Post Debridement Size (cm) - Depth 0.1 -Total Square Cm 22.33 -Wound/Ulcer Outcome Not Healed -Ulcer Cleansing Rinsed/ Irrigated with Saline -Foul Odor after Cleansing No -Bioengineered Tissue No -Topical Lidocaine (%) 4 -Bleeding Controlled with Pressure -Treatment Response Procedure Tolerated Well #6 L Post -Time 10:13 -Correct Patient Yes -Correct Side, Site, Position Yes -Correct Procedure Yes -Procedure Performed Yes -Type of Procedure Debridement -Clinical Debridement Muscle -Post Debridement Size (cm) - Length 7.3 -Post Debridement Size (cm) - Width 22.7 -Post Debridement Size (cm) - Depth 0.2 -Total Square Cm 165.71 -Wound/Ulcer Outcome Not Healed -Ulcer Cleansing Rinsed/ Irrigated with Saline -Foul Odor after Cleansing No -Bioengineered Tissue No -Topical Lidocaine (%) 4 -Bleeding Controlled with Pressure -Treatment Response Procedure Tolerated Well #5 R Lat LE -Time 10:14 -Correct Patient Yes -Correct Side, Site, Position Yes -Correct Procedure Yes -Procedure Performed Yes -Type of Procedure Debridement -Clinical Debridement Subcutaneous -Post Debridement Size (cm) - Length 4.7 -Post Debridement Size (cm) - Width 2.4 -Post Debridement Size (cm) - Depth 0.1 -Total Square Cm 11.28 -Wound/Ulcer Outcome Not Healed -Ulcer Cleansing Rinsed/ Irrigated with Saline -Foul Odor after Cleansing No -Bioengineered Tissue No -Topical Lidocaine (%) 4 -Bleeding Controlled with Pressure -Treatment Response Procedure Tolerated Well #4 R post LE -Time 10:15 -Correct Patient Yes -Correct Side, Site, Position Yes -Correct Procedure Yes -Procedure Performed Yes -Type of Procedure Debridement -Clinical Debridement Subcutaneous -Post Debridement Size (cm) - Length 2.1 -Post Debridement Size (cm) - Width 1.3 -Post Debridement Size (cm) - Depth 0.1 -Total Square Cm 2.73 -Wound/Ulcer Outcome Not Healed -Ulcer Cleansing Rinsed/ Irrigated with Saline -Foul Odor after Cleansing No -Bioengineered Tissue No -Topical Lidocaine (%) 4 -Bleeding Controlled with Pressure -Treatment Response Procedure Tolerated Well #3 R Med LE -Time 10:15 -Correct Patient Yes -Correct Side, Site, Position Yes -Correct Procedure Yes -Procedure Performed Yes -Type of Procedure Debridement -Clinical Debridement Subcutaneous -Post Debridement Size (cm) - Length 4.5 -Post Debridement Size (cm) - Width 0.9 -Post Debridement Size (cm) - Depth 0.3 -Total Square Cm 4.05 -Wound/Ulcer Outcome Not Healed -Ulcer Cleansing Rinsed/ Irrigated with Saline -Foul Odor after Cleansing No -Bioengineered Tissue No -Topical Lidocaine (%) 4 -Bleeding Controlled with Pressure -Treatment Response Procedure Tolerated Well #2 R [place] Cluster -Time 10:15 -Correct Patient Yes -Correct Side, Site, Position Yes -Correct Procedure Yes -Procedure Performed Yes -Type of Procedure Debridement -Clinical Debridement Subcutaneous -Post Debridement Size (cm) - Length 16.1 -Post Debridement Size (cm) - Width 4.6 -Post Debridement Size (cm) - Depth 0.2 -Total Square Cm 74.06 -Wound/Ulcer Outcome Not Healed -Ulcer Cleansing Rinsed/ Irrigated with Saline -Foul Odor after Cleansing No -Bioengineered Tissue No -Topical Lidocaine (%) 4 -Bleeding Controlled with Pressure -Treatment Response Procedure Tolerated Well #1 R 2nd toe amp/Arch/ Med Ankle -Time 10:16 -Correct Patient Yes -Correct Side, Site, Position Yes -Correct Procedure Yes -Procedure Performed Yes -Type of Procedure Debridement -Clinical Debridement Muscle -Post Debridement Size (cm) - Length 33.4 -Post Debridement Size (cm) - Width 4.1 -Post Debridement Size (cm) - Depth 2.2 -Total Square Cm 136.94 -Wound/Ulcer Outcome Not Healed -Ulcer Cleansing Rinsed/ Irrigated with Saline -Foul Odor after Cleansing No -Bioengineered Tissue No -Topical Lidocaine (%) 4 -Bleeding Controlled with Pressure -Treatment Response Procedure Tolerated Well Pain Scale: 0-10 Numeric Is Patient Pain Free? Yes 09/14/18 09/14/18 11:38 11:43 Wound Center Nurse 2 9.L knee -Time 11:43 -Correct Patient No Yes -Correct Side, Site, Position No Yes -Correct Procedure No Yes -Procedure Performed No Yes -Type of Procedure Debridement -Clinical Debridement Subcutaneous -Post Debridement Size (cm) - Length 0.3 -Post Debridement Size (cm) - Width 0.7 -Post Debridement Size (cm) - Depth 0.1 -Total Square Cm 0.21 -Wound/Ulcer Outcome Not Healed -Ulcer Cleansing Rinsed/ Irrigated with Saline -Foul Odor after Cleansing No -Bioengineered Tissue No -Topical Lidocaine (%) -Bleeding Controlled with Pressure -Treatment Response Procedure Tolerated Well #8 r Knee -Time 11:43 -Correct Patient No Yes -Correct Side, Site, Position No Yes -Correct Procedure No Yes -Procedure Performed No Yes -Type of Procedure Debridement -Clinical Debridement Subcutaneous -Post Debridement Size (cm) - Length 1.0 -Post Debridement Size (cm) - Width 1.9 -Post Debridement Size (cm) - Depth 0.3 -Total Square Cm 1.90 -Wound/Ulcer Outcome Not Healed -Ulcer Cleansing Rinsed/ Irrigated with Saline -Foul Odor after Cleansing No -Bioengineered Tissue No -Bleeding Controlled with Pressure -Other -Treatment Response Procedure Tolerated Well #7 L Lat LE Cluster -Time 11:38 -Correct Patient Yes -Correct Side, Site, Position Yes -Correct Procedure Yes -Procedure Performed Yes -Type of Procedure Debridement -Clinical Debridement Subcutaneous -Post Debridement Size (cm) - Length 7 -Post Debridement Size (cm) - Width 2.6 -Post Debridement Size (cm) - Depth 0.2 -Total Square Cm 18.2 -Wound/Ulcer Outcome Not Healed -Ulcer Cleansing Rinsed/ Irrigated with Saline -Foul Odor after Cleansing No -Bioengineered Tissue No -Topical Lidocaine (%) -Bleeding Controlled with Pressure -Treatment Response Procedure Tolerated Well #6 L Post -Time 11:39 -Correct Patient Yes -Correct Side, Site, Position Yes -Correct Procedure Yes -Procedure Performed Yes -Type of Procedure Debridement -Clinical Debridement Subcutaneous -Post Debridement Size (cm) - Length 21.1 -Post Debridement Size (cm) - Width 3 -Post Debridement Size (cm) - Depth 0.1 -Total Square Cm 63.3 -Wound/Ulcer Outcome Not Healed -Ulcer Cleansing Rinsed/ Irrigated with Saline -Foul Odor after Cleansing No -Bioengineered Tissue No -Topical Lidocaine (%) -Bleeding Controlled with Pressure -Treatment Response Procedure Tolerated Well #5 R Lat LE -Time 11:39 -Correct Patient Yes -Correct Side, Site, Position Yes -Correct Procedure Yes -Procedure Performed Yes -Type of Procedure Debridement -Clinical Debridement Subcutaneous -Post Debridement Size (cm) - Length 3.5 -Post Debridement Size (cm) - Width 3 -Post Debridement Size (cm) - Depth 0.1 -Total Square Cm 10.5 -Wound/Ulcer Outcome Not Healed -Ulcer Cleansing Rinsed/ Irrigated with Saline -Foul Odor after Cleansing No -Bioengineered Tissue No -Topical Lidocaine (%) -Bleeding Controlled with Pressure -Treatment Response Procedure Tolerated Well #4 R post LE -Time 11:39 -Correct Patient Yes -Correct Side, Site, Position Yes -Correct Procedure Yes -Procedure Performed Yes -Type of Procedure Debridement -Clinical Debridement Subcutaneous -Post Debridement Size (cm) - Length 1.3 -Post Debridement Size (cm) - Width 1 -Post Debridement Size (cm) - Depth 0.2 -Total Square Cm 1.3 -Wound/Ulcer Outcome Not Healed -Ulcer Cleansing Rinsed/ Irrigated with Saline -Foul Odor after Cleansing No -Bioengineered Tissue No -Topical Lidocaine (%) -Bleeding Controlled with Pressure -Treatment Response Procedure Tolerated Well #3 R Med LE -Time 11:40 -Correct Patient Yes -Correct Side, Site, Position Yes -Correct Procedure Yes -Procedure Performed Yes -Type of Procedure Debridement -Clinical Debridement Subcutaneous -Post Debridement Size (cm) - Length 3.8 -Post Debridement Size (cm) - Width 1.6 -Post Debridement Size (cm) - Depth 0.3 -Total Square Cm 6.08 -Wound/Ulcer Outcome Not Healed -Ulcer Cleansing Rinsed/ Irrigated with Saline -Foul Odor after Cleansing No -Bioengineered Tissue No -Topical Lidocaine (%) -Bleeding Controlled with Pressure -Treatment Response Procedure Tolerated Well #2 R [place] Cluster -Time 11:40 -Correct Patient Yes -Correct Side, Site, Position Yes -Correct Procedure Yes -Procedure Performed Yes -Type of Procedure Debridement -Clinical Debridement Subcutaneous -Post Debridement Size (cm) - Length 15 -Post Debridement Size (cm) - Width 5.1 -Post Debridement Size (cm) - Depth 0.1 -Total Square Cm 76.5 -Wound/Ulcer Outcome Not Healed -Ulcer Cleansing Rinsed/ Irrigated with Saline -Foul Odor after Cleansing No -Bioengineered Tissue No -Topical Lidocaine (%) -Bleeding Controlled with Pressure -Treatment Response Procedure Tolerated Well #1 R 2nd toe amp/Arch/ Med Ankle -Time 11:41 -Correct Patient Yes -Correct Side, Site, Position Yes -Correct Procedure Yes -Procedure Performed Yes -Type of Procedure Debridement -Clinical Debridement Subcutaneous -Post Debridement Size (cm) - Length 31.1 -Post Debridement Size (cm) - Width 4.5 -Post Debridement Size (cm) - Depth 0.1 -Total Square Cm 139.95 -Wound/Ulcer Outcome Not Healed -Ulcer Cleansing Rinsed/ Irrigated with Saline -Foul Odor after Cleansing No -Bioengineered Tissue No -Topical Lidocaine (%) -Bleeding Controlled with Pressure -Treatment Response Procedure Tolerated Well Pain Scale: 0-10 Numeric Is Patient Pain Free? Yes Wound debrided: foot Laterality: Right Wound Grade/Stage: grade 3 Type of Debridement: Excisional debridement Anesthesia Used: 4% Lidocaine Solution Depth: in the subcutaneous layer Percentage of wound debrided: 100 Instrument Used: #15 blade Tissue Removed: fibrous, devitalized subcutaneous, biofilm, slough Severity: Fat Layer Exposed Amount of bleeding with debridement: Mild Bleeding Controlled with: Pressure Patient tolerated procedure well - Additional Wound Wound debrided: anterior leg Laterality: Right Wound Grade/Stage: grade 1 Type of Debridement: Excisional debridement Anesthesia Used: 4% Lidocaine Solution Depth: in the subcutaneous layer Percentage of wound debrided: 100 Instrument Used: #15 blade Tissue Removed: fibrous, devitalized subcutaneous, biofilm, slough Severity: Fat Layer Exposed Amount of bleeding with debridement: Mild Bleeding Controlled with: Pressure Patient tolerated procedure: Patient tolerated procedure well - Additional Wound Wound debrided: medial leg Laterality: Right Wound Grade/Stage: grade 1 Type of Debridement: Excisional debridement Anesthesia Used: 4% Lidocaine Solution Depth: in the subcutaneous layer Percentage of wound debrided: 100 Instrument Used: #15 blade Tissue Removed: fibrous, devitalized subcutaneous, biofilm, slough Severity: Fat Layer Exposed Amount of bleeding with debridement: Mild Bleeding Controlled with: Pressure Patient tolerated procedure: Patient tolerated procedure well - Additional Wound Wound debrided: lateral leg Laterality: Right Wound Grade/Stage: grade 1 Type of Debridement: Excisional debridement Anesthesia Used: 4% Lidocaine Solution Depth: in the subcutaneous layer Percentage of wound debrided: 100 Instrument Used: #15 blade Tissue Removed: fibrous, devitalized subcutaneous, biofilm, slough Severity: Fat Layer Exposed Amount of bleeding with debridement: Mild Bleeding Controlled with: Pressure Patient tolerated procedure: Patient tolerated procedure well - Additional Wound Wound debrided: posterior leg Laterality: Right Wound Grade/Stage: grade 1 Type of Debridement: Excisional debridement Anesthesia Used: 4% Lidocaine Solution Depth: in the subcutaneous layer Percentage of wound debrided: 100 Instrument Used: #15 blade Tissue Removed: fibrous, devitalized subcutaneous, biofilm, slough Severity: Fat Layer Exposed Amount of bleeding with debridement: Mild Bleeding Controlled with: Pressure Patient tolerated procedure: Patient tolerated procedure well - Additional Wound Wound debrided: posterior leg Laterality: Left Wound Grade/Stage: grade 1 Type of Debridement: Excisional debridement Anesthesia Used: 4% Lidocaine Solution Depth: in the subcutaneous layer Percentage of wound debrided: 100 Instrument Used: #15 blade Tissue Removed: fibrous, devitalized subcutaneous, biofilm, slough Severity: Fat Layer Exposed Amount of bleeding with debridement: Mild Bleeding Controlled with: Pressure Patient tolerated procedure: Patient tolerated procedure well - Additional Wound Wound debrided: lateral leg Laterality: Left Wound Grade/Stage: grade 1 Type of Debridement: Excisional debridement Anesthesia Used: 4% Lidocaine Solution Depth: in the subcutaneous layer Percentage of wound debrided: 100 Instrument Used: #15 blade Tissue Removed: fibrous, devitalized subcutaneous, biofilm, slough Severity: Fat Layer Exposed Amount of bleeding with debridement: Mild Bleeding Controlled with: Pressure Patient tolerated procedure: Patient tolerated procedure well Assessment/Plan Active Problems Skin ulcer of right knee with fat layer exposed (Chronic) Skin ulcer of left knee with fat layer exposed (Chronic) Delayed wound healing (Chronic) Smoker (Chronic) 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 (Chronic) Ulcer of right lower extremity with fat layer exposed (Chronic) Ulcer of left lower extremity with fat layer exposed (Chronic) Ulcer of right foot with necrosis of muscle (Chronic) Type 2 diabetes mellitus with diabetic polyneuropathy (Chronic) Localized edema (Chronic) Malnutrition (Chronic) DM2 (diabetes mellitus, type 2) (Chronic) Assessment: Open second and third ray resection secondary to 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 Diabetic neuropathy. Malnutrition suspected. 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 Delayed healing. Gait impairment and fall risk. Other comorbidities, right knee ulcer, tendon exposed (Dr. Gilbert managed), left knee ulcer (Dr. Gilbert managed) Plan: I reviewed and discussed his case with the patient and the patient's . Subcutaneous debridements were performed as noted in the clinical panel.I Rec ommended changing the dressings daily with [facility] facility staff assistance with santyl to knees (per Dr. Gilbert) and aquacel ag to the leg ulcers, santyl to devitalized tendon zones, and wound vac to the right foot. I also recommend continued wound VAC changes to the right foot that extends to the medial ankle every 3 days. He was reassured no worsening status or local external to today. The ulcer sites have improved quality with granulation tissue. He had 6 weeks of IV antibiotic of Unasyn. Infectious disease was on consult during his last [facility] admission. I recommend he avoids laying directly on his wounds to reduce pressure, and I was concerned about his perfusion to his limbs. He had an arterial Doppler scheduled with Dr. Morgan's staff on August 02, 2018 and overall perfusion was confirmed; additional intervention or workup was not recommended. To continue with nutritional supplementation optimize healing; I recommend Juan. I recommend he sustained from smoking and alcohol activities to optimize healing as well. His workup for vasculitis and underlying autoimmune disorder is also pending. A punch biopsy was sent during his last surgical intervention on June 10 and this demonstrated inflammatory changes without malignancy. He had initial screening labs and so far he has a negative RA titer, HL of the 27, KEVIN, anti-CCP, and r heumatoid factor. Several his antibody screenings were not reportable. I have communicated this workup with his current managing physician at [facility], Dr. Perdomo, to see if additional recommendations or workup is indicated. He is home now. I will further forward this information along to his primary care physician, Dr. Sparks. Hyperbaric oxygen therapy may be considered if he is stable enough. I am concerned about his cardiac output. He understands his goals are infection prevention, pain control, and functional progression. I answered all his questions. Dr. Gilbert continues to manage his bilateral knee ulcers including debridements and traditional wound care plan. I recommend same-day surgery versa jet debridement with application of advanced wound care products including epi cord, amnio fill, and amnio fix product line derived from amniotic cord cells and umbilical cord cells. The sales support coordinator will contact him and initiate insurance prior authorization. The benefits, indications, planned procedure, possible benefits risks and anticipated healing time is were discussed. He understands this is a staged procedure and often serial applications are required. I recommend further follow-up at the wound care center 1 week with me, or call sooner if he has any questions.
[2018-09-21 11:22] VITALS: BP 123/79; PULSE 113; RESP 18; TEMP 36.9
--- NOTE | 2018-09-21 13:01 | PCM.WC.PN ---
(1) Skin ulcer of right knee with fat layer exposed Status: Chronic Current Visit: Yes Code(s): L97.812 - Non-pressure chronic ulcer of other part of right lower leg with fat layer exposed (2) Skin ulcer of left knee with fat layer exposed Status: Chronic Current Visit: Yes Code(s): L97.822 - Non-pressure chronic ulcer of other part of left lower leg with fat layer exposed (3) DM2 (diabetes mellitus, type 2) Status: Chronic Current Visit: Yes Code(s): E11.9 - Type 2 diabetes mellitus without complications Type of Wound Chief Complaint: right and left Leg ulcers and right foot ulcer History of Wound: Mr. Arguello is a 63-year-old male with multiple comorbidities follows up for delayed healing ulcers to the right foot as well as bilateral legs. It is noted he previously had widespread debridements and fasciotomies performed to bilateral lower extremities secondary to life-threatening and limb threatening infection; this was previously performed at [facility]. He continues to follow with Dr. Gilbert for her knee ulcers, and I saw him today for his other ulcer sites. He has been applying Santyl to both the wounds, Aquacel to leg ulcers, and wound VAC to right foot defect with quality improvement. He denies chills, fever or otherwise feeling of unwell. He presents today with his . He continues to smoke a half a pack of cigarettes daily. Progress of Wound: Stable. - Physical Exam Vital Signs Temp Pulse Resp BP 98.4 F 113 H 18 123/79 H 09/21/18 11:22 09/21/18 11:22 09/21/18 11:22 09/21/18 11:22 General: Alert, Oriented x3, Cooperative, No apparent distress HEENT: Atraumatic Oral: Moist Mucosa Neck: Supple Lungs: Normal air movement Extremities: No cyanosis Skin: Ulcer/ Wound Wound Measurements and Assessment WC - Nurse 1 - General Ulcer Measurement Start: 08/24/18 12:02 Freq: Status: Active Protocol: Activity Type Activity Date Activity User E-Sign Co-Sign Detail Recorded Client Recorded Date Recorded By Document 09/21/18 11:22 [id number] 09/21/18 11:47 09/21/18 11:22 Wound Center Nurse 1 [Ulcer Assessment] 9.L knee -Combined with other wound No -Current Size (cm) - Length 0.4 -Current Size (cm) - Width 0.7 -Current Size (cm) - Depth 0.1 -Total Square Cm 0.28 -Photo Taken No -Epithelialization None Present -Tunneling No -Undermining/Tunneling No -Circular Undermining No -Exudate Amt Small (1-33%) -Exudate Type Serosanguineous -Granulation Amt Small (1-33%) -Granulation Quality [place] -Slough/Fibrin Yes -Necrosis Amt Medium (34-66%) -Necrotic Tissue Type Adherent Slough -Texture (Lisa-wound Skin Appearance) Assessed Scarring -Moisture (Lisa-wound Skin Appearance Assessed ) Dry/Scaly -Color (Lisa-wound Skin Appearance) No Abnormality Assessed -Temperature (Lisa-wound Skin No Abnormality Appearance) (Pt Warm) -Tenderness on Palpation (Lisa-wound No Skin Appearance) -Ulcer Cleansing Rinsed/ Irrigated with Saline -Foul Odor after Cleansing No -Anesthetic Used 4% Lidocaine Solution #8 r Knee -Combined with other wound No -Current Size (cm) - Length 1.3 -Current Size (cm) - Width 1.5 -Current Size (cm) - Depth 0.4 -Total Square Cm 1.95 -Photo Taken No -Epithelialization None Present -Tunneling No -Undermining/Tunneling No -Circular Undermining No -Exudate Amt Medium (34-66%) -Exudate Type Serosanguineous -Wound Margin Distinct, Outline Attached -Granulation Amt Small (1-33%) -Granulation Quality [place] -Slough/Fibrin Yes -Necrosis Amt Medium (34-66%) -Necrotic Tissue Type Adherent Slough -Texture (Lisa-wound Skin Appearance) Assessed Scarring -Moisture (Lisa-wound Skin Appearance Assessed ) Maceration -Color (Lisa-wound Skin Appearance) No Abnormality Assessed -Temperature (Lisa-wound Skin No Abnormality Appearance) (Pt Warm) -Tenderness on Palpation (Lisa-wound No Skin Appearance) -Ulcer Cleansing Rinsed/ Irrigated with Saline -Foul Odor after Cleansing No -Anesthetic Used 4% Lidocaine Solution #7 L Lat LE Cluster -Combined with other wound No -Current Size (cm) - Length 8.2 -Current Size (cm) - Width 9.0 -Current Size (cm) - Depth 0.1 -Total Square Cm 73.80 -Photo Taken No -Epithelialization None Present -Tunneling No -Undermining/Tunneling No -Circular Undermining No -Exudate Amt Small (1-33%) -Exudate Type Serosanguineous -Wound Margin Distinct, Outline Attached -Granulation Amt Medium (34-66%) -Granulation Quality [place] -Slough/Fibrin Yes -Necrosis Amt Medium (34-66%) -Necrotic Tissue Type Adherent Slough -Texture (Lisa-wound Skin Appearance) Assessed Scarring -Moisture (Lisa-wound Skin Appearance Assessed ) Dry/Scaly -Color (Lisa-wound Skin Appearance) No Abnormality Assessed -Temperature (Lisa-wound Skin No Abnormality Appearance) (Pt Warm) -Tenderness on Palpation (Lisa-wound No Skin Appearance) -Foul Odor after Cleansing No -Anesthetic Used 4% Lidocaine Solution #6 L Post -Combined with other wound No -Current Size (cm) - Length 21.3 -Current Size (cm) - Width 3.3 -Current Size (cm) - Depth 0.1 -Total Square Cm 70.29 -Photo Taken No -Epithelialization None Present -Tunneling No -Undermining/Tunneling No -Circular Undermining No -Exudate Amt Small (1-33%) -Exudate Type Serosanguineous -Wound Margin Distinct, Outline Attached -Granulation Amt Medium (34-66%) -Granulation Quality Pale -Slough/Fibrin Yes -Necrosis Amt Medium (34-66%) -Necrotic Tissue Type Adherent Slough -Texture (Lisa-wound Skin Appearance) Not Assessed Scarring -Moisture (Lisa-wound Skin Appearance Assessed ) Dry/Scaly -Color (Lisa-wound Skin Appearance) No Abnormality Assessed -Temperature (Lisa-wound Skin No Abnormality Appearance) (Pt Warm) -Tenderness on Palpation (Lisa-wound No Skin Appearance) -Ulcer Cleansing Rinsed/ Irrigated with Saline -Foul Odor after Cleansing No -Anesthetic Used 4% Lidocaine Solution #5 R Lat LE -Combined with other wound No -Current Size (cm) - Length 4.4 -Current Size (cm) - Width 2.3 -Current Size (cm) - Depth 0.1 -Total Square Cm 10.12 -Photo Taken No -Epithelialization None Present -Tunneling No -Undermining/Tunneling No -Circular Undermining No -Exudate Amt Medium (34-66%) -Exudate Type Serosanguineous -Wound Margin Distinct, Outline Attached -Granulation Amt Medium (34-66%) -Granulation Quality [place] -Slough/Fibrin Yes -Necrosis Amt Small (1-33%) -Necrotic Tissue Type Adherent Slough -Texture (Lisa-wound Skin Appearance) Assessed Scarring -Moisture (Lisa-wound Skin Appearance Assessed ) Dry/Scaly -Color (Lisa-wound Skin Appearance) No Abnormality Assessed -Temperature (Lisa-wound Skin No Abnormality Appearance) (Pt Warm) -Tenderness on Palpation (Lisa-wound No Skin Appearance) -Ulcer Cleansing Rinsed/ Irrigated with Saline -Foul Odor after Cleansing No -Anesthetic Used 4% Lidocaine Solution #4 R post LE -Combined with other wound No -Current Size (cm) - Length 1.4 -Current Size (cm) - Width 1.3 -Current Size (cm) - Depth 0.2 -Total Square Cm 1.82 -Photo Taken No -Epithelialization None Present -Tunneling No -Undermining/Tunneling No -Circular Undermining No -Exudate Amt Medium (34-66%) -Exudate Type Serosanguineous -Wound Margin Distinct, Outline Attached -Granulation Amt Small (1-33%) -Granulation Quality [place] -Slough/Fibrin Yes -Necrosis Amt Medium (34-66%) -Necrotic Tissue Type Adherent Slough -Texture (Lisa-wound Skin Appearance) Assessed Scarring -Moisture (Lisa-wound Skin Appearance Assessed ) Dry/Scaly -Color (Lisa-wound Skin Appearance) No Abnormality Assessed -Temperature (Lisa-wound Skin No Abnormality Appearance) (Pt Warm) -Tenderness on Palpation (Lisa-wound No Skin Appearance) -Ulcer Cleansing Rinsed/ Irrigated with Saline -Foul Odor after Cleansing No -Anesthetic Used 4% Lidocaine Solution #3 R Med LE -Combined with other wound No -Current Size (cm) - Length 3.5 -Current Size (cm) - Width 1.9 -Current Size (cm) - Depth 0.5 -Total Square Cm 6.65 -Photo Taken No -Epithelialization None Present -Tunneling No -Undermining/Tunneling No -Circular Undermining No -Exudate Amt Medium (34-66%) -Exudate Type Serosanguineous -Wound Margin Distinct, Outline Attached -Granulation Amt Medium (34-66%) -Granulation Quality [place] -Slough/Fibrin Yes -Necrosis Amt Medium (34-66%) -Necrotic Tissue Type Adherent Slough -Texture (Lisa-wound Skin Appearance) Assessed Scarring -Moisture (Lisa-wound Skin Appearance Assessed ) Dry/Scaly -Color (Lisa-wound Skin Appearance) No Abnormality Assessed -Temperature (Lisa-wound Skin No Abnormality Appearance) (Pt Warm) -Tenderness on Palpation (Lisa-wound No Skin Appearance) -Ulcer Cleansing Rinsed/ Irrigated with Saline -Foul Odor after Cleansing No -Anesthetic Used 4% Lidocaine Solution #2 R [place] Cluster -Combined with other wound No -Current Size (cm) - Length 16.1 -Current Size (cm) - Width 4.5 -Current Size (cm) - Depth 0.2 -Total Square Cm 72.45 -Photo Taken No -Epithelialization None Present -Tunneling No -Undermining/Tunneling No -Circular Undermining No -Exudate Amt Medium (34-66%) -Exudate Type Serosanguineous -Wound Margin Distinct, Outline Attached -Granulation Amt Medium (34-66%) -Granulation Quality [place] -Slough/Fibrin No -Necrosis Amt Medium (34-66%) -Necrotic Tissue Type Adherent Slough -Texture (Lisa-wound Skin Appearance) Not Assessed Scarring -Moisture (Lisa-wound Skin Appearance Assessed ) Maceration -Color (Lisa-wound Skin Appearance) No Abnormality Assessed -Temperature (Lisa-wound Skin No Abnormality Appearance) (Pt Warm) -Tenderness on Palpation (Lisa-wound No Skin Appearance) -Foul Odor after Cleansing No -Anesthetic Used 4% Lidocaine Solution #1 R 2nd toe amp/Arch/ Med Ankle -Current Size (cm) - Length 30.6 -Current Size (cm) - Width 3.6 -Current Size (cm) - Depth 1.3 -Total Square Cm 110.16 -Photo Taken No -Epithelialization None Present -Tunneling No -Undermining/Tunneling No -Circular Undermining No -Exudate Amt Medium (34-66%) -Exudate Type Serosanguineous -Wound Margin Thickened -Granulation Amt Large (67-100%) -Granulation Quality Red -Slough/Fibrin Yes -Necrosis Amt Medium (34-66%) -Necrotic Tissue Type Adherent Slough -Texture (Lisa-wound Skin Appearance) Assessed Scarring -Moisture (Lisa-wound Skin Appearance Assessed ) Maceration -Color (Lisa-wound Skin Appearance) No Abnormality Assessed -Temperature (Lisa-wound Skin No Abnormality Appearance) (Pt Warm) -Tenderness on Palpation (Lisa-wound No Skin Appearance) -Foul Odor after Cleansing No -Anesthetic Used 4% Lidocaine Solution [Edema Assessment] -Right Calf (cm) 35.6 -Right Ankle (cm) 23.6 -Left Calf (cm) 34 -Left Ankle (cm) 22 WC - Nurse 2 - General Ulcer CM Notes Start: 08/24/18 12:02 Freq: Status: Active Protocol: Activity Type Activity Date Activity User E-Sign Co-Sign Detail Recorded Client Recorded Date Recorded By Document 09/21/18 12:03 TM [id number] 09/21/18 12:08 TM Document 09/21/18 12:12 MW [id number] 09/21/18 12:14 MW 09/21/18 09/21/18 12:03 12:12 Wound Center Nurse 2 [Procedure/Treatment] 9.L knee -Time 12:12 -Correct Patient Yes -Correct Side, Site, Position Yes -Correct Procedure Yes -Procedure Performed Yes -Type of Procedure Debridement -Clinical Debridement Subcutaneous -Post Debridement Size (cm) - Length 0.2 -Post Debridement Size (cm) - Width 0.5 -Post Debridement Size (cm) - Depth 0.1 -Total Square Cm 0.10 -Wound/Ulcer Outcome Not Healed -Ulcer Cleansing Rinsed/ Irrigated with Saline -Foul Odor after Cleansing No -Bioengineered Tissue No -Bleeding Controlled with Pressure -Treatment Response Procedure Tolerated Well #8 r Knee -Time 12:12 -Correct Patient Yes -Correct Side, Site, Position Yes -Correct Procedure Yes -Procedure Performed Yes -Type of Procedure Debridement -Clinical Debridement Subcutaneous -Post Debridement Size (cm) - Length 1.0 -Post Debridement Size (cm) - Width 1.5 -Post Debridement Size (cm) - Depth 0.2 -Total Square Cm 1.50 -Wound/Ulcer Outcome Not Healed -Ulcer Cleansing Rinsed/ Irrigated with Saline -Foul Odor after Cleansing No -Bioengineered Tissue No -Bleeding Controlled with Pressure -Treatment Response Procedure Tolerated Well #7 L Lat LE Cluster -Time 12:03 -Correct Patient Yes -Correct Side, Site, Position Yes -Correct Procedure Yes -Procedure Performed Yes -Post Debridement Size (cm) - Length 0 -Post Debridement Size (cm) - Width 0 -Post Debridement Size (cm) - Depth 0 -Total Square Cm 0 -Wound/Ulcer Outcome Healed- Epithelialized -Ulcer Cleansing Rinsed/ Irrigated with Saline -Foul Odor after Cleansing No -Bioengineered Tissue No -Topical Lidocaine (%) 4 -Bleeding Controlled with NA -Treatment Response Procedure Tolerated Well #6 L Post -Time 12:04 -Correct Patient Yes -Correct Side, Site, Position Yes -Correct Procedure Yes -Procedure Performed Yes -Type of Procedure Debridement -Clinical Debridement Subcutaneous -Post Debridement Size (cm) - Length 21.4 -Post Debridement Size (cm) - Width 3.4 -Post Debridement Size (cm) - Depth 0.1 -Total Square Cm 72.76 -Wound/Ulcer Outcome Not Healed -Ulcer Cleansing Rinsed/ Irrigated with Saline -Foul Odor after Cleansing No -Bioengineered Tissue No -Topical Lidocaine (%) 4 -Bleeding Controlled with Pressure -Treatment Response Procedure Tolerated Well #5 R Lat LE -Time 12:04 -Correct Patient Yes -Correct Side, Site, Position Yes -Correct Procedure Yes -Procedure Performed Yes -Type of Procedure Debridement -Clinical Debridement Subcutaneous -Post Debridement Size (cm) - Length 4.5 -Post Debridement Size (cm) - Width 2.4 -Post Debridement Size (cm) - Depth 0.1 -Total Square Cm 10.80 -Wound/Ulcer Outcome Not Healed -Ulcer Cleansing Rinsed/ Irrigated with Saline -Foul Odor after Cleansing No -Bioengineered Tissue No -Topical Lidocaine (%) 4 -Bleeding Controlled with Pressure -Treatment Response Procedure Tolerated Well #4 R post LE -Time 12:05 -Correct Patient Yes -Correct Side, Site, Position Yes -Correct Procedure Yes -Procedure Performed Yes -Type of Procedure Debridement -Clinical Debridement Subcutaneous -Post Debridement Size (cm) - Length 1.5 -Post Debridement Size (cm) - Width 1.4 -Post Debridement Size (cm) - Depth 0.2 -Total Square Cm 2.10 -Wound/Ulcer Outcome Not Healed -Ulcer Cleansing Rinsed/ Irrigated with Saline -Foul Odor after Cleansing No -Bioengineered Tissue No -Topical Lidocaine (%) 4 -Bleeding Controlled with Pressure -Treatment Response Procedure Tolerated Well #3 R Med LE -Time 12:05 -Correct Patient Yes -Correct Side, Site, Position Yes -Correct Procedure Yes -Procedure Performed Yes -Type of Procedure Debridement -Clinical Debridement Subcutaneous -Post Debridement Size (cm) - Length 3.6 -Post Debridement Size (cm) - Width 2.0 -Post Debridement Size (cm) - Depth 0.5 -Total Square Cm 7.20 -Wound/Ulcer Outcome Not Healed -Ulcer Cleansing Rinsed/ Irrigated with Saline -Foul Odor after Cleansing No -Bioengineered Tissue No -Topical Lidocaine (%) 4 -Bleeding Controlled with Pressure -Treatment Response Procedure Tolerated Well #2 R [place] Cluster -Time 12:06 -Correct Patient Yes -Correct Side, Site, Position Yes -Correct Procedure Yes -Procedure Performed Yes -Type of Procedure Debridement -Clinical Debridement Subcutaneous -Post Debridement Size (cm) - Length 16.2 -Post Debridement Size (cm) - Width 4.6 -Post Debridement Size (cm) - Depth 0.2 -Total Square Cm 74.52 -Wound/Ulcer Outcome Not Healed -Ulcer Cleansing Rinsed/ Irrigated with Saline -Foul Odor after Cleansing No -Bioengineered Tissue No -Topical Lidocaine (%) 4 -Bleeding Controlled with Pressure -Treatment Response Procedure Tolerated Well #1 R 2nd toe amp/Arch/ Med Ankle -Time 12:06 -Correct Patient Yes -Correct Side, Site, Position Yes -Correct Procedure Yes -Procedure Performed Yes -Type of Procedure Debridement -Clinical Debridement Muscle -Post Debridement Size (cm) - Length 30.7 -Post Debridement Size (cm) - Width 3.7 -Post Debridement Size (cm) - Depth 1.3 -Total Square Cm 113.59 -Wound/Ulcer Outcome Not Healed -Ulcer Cleansing Rinsed/ Irrigated with Saline -Foul Odor after Cleansing No -Bioengineered Tissue No -Topical Lidocaine (%) 4 -Bleeding Controlled with Pressure -Treatment Response Procedure Tolerated Well [See Physician Procedure note for Specifics] Pain Scale: 0-10 Numeric [Pain] -Is Patient Pain Free? Yes Yes Musculoskeletal: No Muscle Wasting Neurological: Cranial nerves II-XII grossly intact Psych/Mental Status: Normal Affect Debridement Note Post-Debridement Measurements/Treatment WC - Nurse 2 - General Ulcer CM Notes Start: 08/24/18 12:02 Freq: Status: Active Protocol: Activity Type Activity Date Activity User E-Sign Co-Sign Detail Recorded Client Recorded Date Recorded By Document 08/24/18 12:18 MW [id number] 08/24/18 12:24 MW Document 09/07/18 09:37 MW [id number] 09/07/18 09:41 MW Document 09/07/18 10:12 TM [id number] 09/07/18 10:17 TM Document 09/14/18 11:38 JF [id number] 09/14/18 11:41 JF Document 09/14/18 11:43 JF [id number] 09/14/18 11:50 JF Document 09/21/18 12:03 TM [id number] 09/21/18 12:08 TM Document 09/21/18 12:12 MW [id number] 09/21/18 12:14 MW 08/24/18 09/07/18 09/07/18 12:18 09:37 10:12 Wound Center Nurse 2 9.L knee -Time 12:19 09:38 10:12 -Correct Patient Yes Yes Yes -Correct Side, Site, Position Yes Yes Yes -Correct Procedure Yes Yes Yes -Procedure Performed Yes Yes Yes -Type of Procedure Debridement Debridement -Clinical Debridement Subcutaneous Subcutaneous -Post Debridement Size (cm) - Length 0.3 0.4 -Post Debridement Size (cm) - Width 1.2 1.0 -Post Debridement Size (cm) - Depth 0.1 0.2 -Total Square Cm 0.36 0.40 -Wound/Ulcer Outcome Not Healed Not Healed Not Healed -Ulcer Cleansing Rinsed/ Rinsed/ Rinsed/ Irrigated with Irrigated with Irrigated with Saline Saline Saline -Foul Odor after Cleansing No No No -Bioengineered Tissue No No No -Topical Lidocaine (%) 4 -Bleeding Controlled with Pressure Pressure Pressure -Treatment Response Procedure Procedure Tolerated Well Tolerated Well #8 r Knee -Time 12:19 09:38 10:12 -Correct Patient Yes Yes Yes -Correct Side, Site, Position Yes Yes Yes -Correct Procedure Yes Yes Yes -Procedure Performed Yes Yes Yes -Type of Procedure Debridement Debridement -Clinical Debridement Subcutaneous Subcutaneous -Post Debridement Size (cm) - Length 1.3 1.2 -Post Debridement Size (cm) - Width 2.0 1.7 -Post Debridement Size (cm) - Depth 0.3 0.3 -Total Square Cm 2.60 2.04 -Wound/Ulcer Outcome Not Healed Not Healed Not Healed -Ulcer Cleansing Rinsed/ Rinsed/ Rinsed/ Irrigated with Irrigated with Irrigated with Saline Saline Saline -Foul Odor after Cleansing No No No -Bioengineered Tissue No No No -Bleeding Controlled with Pressure Pressure NA -Other circular undermining @10 , 1.4cm -Treatment Response Procedure Procedure Tolerated Well Tolerated Well #7 L Lat LE Cluster -Time 10:13 -Correct Patient Yes -Correct Side, Site, Position Yes -Correct Procedure Yes -Procedure Performed Yes -Type of Procedure Debridement -Clinical Debridement Subcutaneous -Post Debridement Size (cm) - Length 7.7 -Post Debridement Size (cm) - Width 2.9 -Post Debridement Size (cm) - Depth 0.1 -Total Square Cm 22.33 -Wound/Ulcer Outcome Not Healed -Ulcer Cleansing Rinsed/ Irrigated with Saline -Foul Odor after Cleansing No -Bioengineered Tissue No -Topical Lidocaine (%) 4 -Bleeding Controlled with Pressure -Treatment Response Procedure Tolerated Well #6 L Post -Time 10:13 -Correct Patient Yes -Correct Side, Site, Position Yes -Correct Procedure Yes -Procedure Performed Yes -Type of Procedure Debridement -Clinical Debridement Muscle -Post Debridement Size (cm) - Length 7.3 -Post Debridement Size (cm) - Width 22.7 -Post Debridement Size (cm) - Depth 0.2 -Total Square Cm 165.71 -Wound/Ulcer Outcome Not Healed -Ulcer Cleansing Rinsed/ Irrigated with Saline -Foul Odor after Cleansing No -Bioengineered Tissue No -Topical Lidocaine (%) 4 -Bleeding Controlled with Pressure -Treatment Response Procedure Tolerated Well #5 R Lat LE -Time 10:14 -Correct Patient Yes -Correct Side, Site, Position Yes -Correct Procedure Yes -Procedure Performed Yes -Type of Procedure Debridement -Clinical Debridement Subcutaneous -Post Debridement Size (cm) - Length 4.7 -Post Debridement Size (cm) - Width 2.4 -Post Debridement Size (cm) - Depth 0.1 -Total Square Cm 11.28 -Wound/Ulcer Outcome Not Healed -Ulcer Cleansing Rinsed/ Irrigated with Saline -Foul Odor after Cleansing No -Bioengineered Tissue No -Topical Lidocaine (%) 4 -Bleeding Controlled with Pressure -Treatment Response Procedure Tolerated Well #4 R post LE -Time 10:15 -Correct Patient Yes -Correct Side, Site, Position Yes -Correct Procedure Yes -Procedure Performed Yes -Type of Procedure Debridement -Clinical Debridement Subcutaneous -Post Debridement Size (cm) - Length 2.1 -Post Debridement Size (cm) - Width 1.3 -Post Debridement Size (cm) - Depth 0.1 -Total Square Cm 2.73 -Wound/Ulcer Outcome Not Healed -Ulcer Cleansing Rinsed/ Irrigated with Saline -Foul Odor after Cleansing No -Bioengineered Tissue No -Topical Lidocaine (%) 4 -Bleeding Controlled with Pressure -Treatment Response Procedure Tolerated Well #3 R Med LE -Time 10:15 -Correct Patient Yes -Correct Side, Site, Position Yes -Correct Procedure Yes -Procedure Performed Yes -Type of Procedure Debridement -Clinical Debridement Subcutaneous -Post Debridement Size (cm) - Length 4.5 -Post Debridement Size (cm) - Width 0.9 -Post Debridement Size (cm) - Depth 0.3 -Total Square Cm 4.05 -Wound/Ulcer Outcome Not Healed -Ulcer Cleansing Rinsed/ Irrigated with Saline -Foul Odor after Cleansing No -Bioengineered Tissue No -Topical Lidocaine (%) 4 -Bleeding Controlled with Pressure -Treatment Response Procedure Tolerated Well #2 R [place] Cluster -Time 10:15 -Correct Patient Yes -Correct Side, Site, Position Yes -Correct Procedure Yes -Procedure Performed Yes -Type of Procedure Debridement -Clinical Debridement Subcutaneous -Post Debridement Size (cm) - Length 16.1 -Post Debridement Size (cm) - Width 4.6 -Post Debridement Size (cm) - Depth 0.2 -Total Square Cm 74.06 -Wound/Ulcer Outcome Not Healed -Ulcer Cleansing Rinsed/ Irrigated with Saline -Foul Odor after Cleansing No -Bioengineered Tissue No -Topical Lidocaine (%) 4 -Bleeding Controlled with Pressure -Treatment Response Procedure Tolerated Well #1 R 2nd toe amp/Arch/ Med Ankle -Time 10:16 -Correct Patient Yes -Correct Side, Site, Position Yes -Correct Procedure Yes -Procedure Performed Yes -Type of Procedure Debridement -Clinical Debridement Muscle -Post Debridement Size (cm) - Length 33.4 -Post Debridement Size (cm) - Width 4.1 -Post Debridement Size (cm) - Depth 2.2 -Total Square Cm 136.94 -Wound/Ulcer Outcome Not Healed -Ulcer Cleansing Rinsed/ Irrigated with Saline -Foul Odor after Cleansing No -Bioengineered Tissue No -Topical Lidocaine (%) 4 -Bleeding Controlled with Pressure -Treatment Response Procedure Tolerated Well Pain Scale: 0-10 Numeric Is Patient Pain Free? Yes 09/14/18 09/14/18 09/21/18 11:38 11:43 12:03 Wound Center Nurse 2 9.L knee -Time 11:43 -Correct Patient No Yes -Correct Side, Site, Position No Yes -Correct Procedure No Yes -Procedure Performed No Yes -Type of Procedure Debridement -Clinical Debridement Subcutaneous -Post Debridement Size (cm) - Length 0.3 -Post Debridement Size (cm) - Width 0.7 -Post Debridement Size (cm) - Depth 0.1 -Total Square Cm 0.21 -Wound/Ulcer Outcome Not Healed -Ulcer Cleansing Rinsed/ Irrigated with Saline -Foul Odor after Cleansing No -Bioengineered Tissue No -Topical Lidocaine (%) -Bleeding Controlled with Pressure -Treatment Response Procedure Tolerated Well #8 r Knee -Time 11:43 -Correct Patient No Yes -Correct Side, Site, Position No Yes -Correct Procedure No Yes -Procedure Performed No Yes -Type of Procedure Debridement -Clinical Debridement Subcutaneous -Post Debridement Size (cm) - Length 1.0 -Post Debridement Size (cm) - Width 1.9 -Post Debridement Size (cm) - Depth 0.3 -Total Square Cm 1.90 -Wound/Ulcer Outcome Not Healed -Ulcer Cleansing Rinsed/ Irrigated with Saline -Foul Odor after Cleansing No -Bioengineered Tissue No -Bleeding Controlled with Pressure -Other -Treatment Response Procedure Tolerated Well #7 L Lat LE Cluster -Time 11:38 12:03 -Correct Patient Yes Yes -Correct Side, Site, Position Yes Yes -Correct Procedure Yes Yes -Procedure Performed Yes Yes -Type of Procedure Debridement -Clinical Debridement Subcutaneous -Post Debridement Size (cm) - Length 7 0 -Post Debridement Size (cm) - Width 2.6 0 -Post Debridement Size (cm) - Depth 0.2 0 -Total Square Cm 18.2 0 -Wound/Ulcer Outcome Not Healed Healed- Epithelialized -Ulcer Cleansing Rinsed/ Rinsed/ Irrigated with Irrigated with Saline Saline -Foul Odor after Cleansing No No -Bioengineered Tissue No No -Topical Lidocaine (%) 4 -Bleeding Controlled with Pressure NA -Treatment Response Procedure Procedure Tolerated Well Tolerated Well #6 L Post -Time 11:39 12:04 -Correct Patient Yes Yes -Correct Side, Site, Position Yes Yes -Correct Procedure Yes Yes -Procedure Performed Yes Yes -Type of Procedure Debridement Debridement -Clinical Debridement Subcutaneous Subcutaneous -Post Debridement Size (cm) - Length 21.1 21.4 -Post Debridement Size (cm) - Width 3 3.4 -Post Debridement Size (cm) - Depth 0.1 0.1 -Total Square Cm 63.3 72.76 -Wound/Ulcer Outcome Not Healed Not Healed -Ulcer Cleansing Rinsed/ Rinsed/ Irrigated with Irrigated with Saline Saline -Foul Odor after Cleansing No No -Bioengineered Tissue No No -Topical Lidocaine (%) 4 -Bleeding Controlled with Pressure Pressure -Treatment Response Procedure Procedure Tolerated Well Tolerated Well #5 R [facility] LE -Time 11:39 12:04 -Correct Patient Yes Yes -Correct Side, Site, Position Yes Yes -Correct Procedure Yes Yes -Procedure Performed Yes Yes -Type of Procedure Debridement Debridement -Clinical Debridement Subcutaneous Subcutaneous -Post Debridement Size (cm) - Length 3.5 4.5 -Post Debridement Size (cm) - Width 3 2.4 -Post Debridement Size (cm) - Depth 0.1 0.1 -Total Square Cm 10.5 10.80 -Wound/Ulcer Outcome Not Healed Not Healed -Ulcer Cleansing Rinsed/ Rinsed/ Irrigated with Irrigated with Saline Saline -Foul Odor after Cleansing No No -Bioengineered Tissue No No -Topical Lidocaine (%) 4 -Bleeding Controlled with Pressure Pressure -Treatment Response Procedure Procedure Tolerated Well Tolerated Well #4 R post LE -Time 11:39 12:05 -Correct Patient Yes Yes -Correct Side, Site, Position Yes Yes -Correct Procedure Yes Yes -Procedure Performed Yes Yes -Type of Procedure Debridement Debridement -Clinical Debridement Subcutaneous Subcutaneous -Post Debridement Size (cm) - Length 1.3 1.5 -Post Debridement Size (cm) - Width 1 1.4 -Post Debridement Size (cm) - Depth 0.2 0.2 -Total Square Cm 1.3 2.10 -Wound/Ulcer Outcome Not Healed Not Healed -Ulcer Cleansing Rinsed/ Rinsed/ Irrigated with Irrigated with Saline Saline -Foul Odor after Cleansing No No -Bioengineered Tissue No No -Topical Lidocaine (%) 4 -Bleeding Controlled with Pressure Pressure -Treatment Response Procedure Procedure Tolerated Well Tolerated Well #3 R [facility] LE -Time 11:40 12:05 -Correct Patient Yes Yes -Correct Side, Site, Position Yes Yes -Correct Procedure Yes Yes -Procedure Performed Yes Yes -Type of Procedure Debridement Debridement -Clinical Debridement Subcutaneous Subcutaneous -Post Debridement Size (cm) - Length 3.8 3.6 -Post Debridement Size (cm) - Width 1.6 2.0 -Post Debridement Size (cm) - Depth 0.3 0.5 -Total Square Cm 6.08 7.20 -Wound/Ulcer Outcome Not Healed Not Healed -Ulcer Cleansing Rinsed/ Rinsed/ Irrigated with Irrigated with Saline Saline -Foul Odor after Cleansing No No -Bioengineered Tissue No No -Topical Lidocaine (%) 4 -Bleeding Controlled with Pressure Pressure -Treatment Response Procedure Procedure Tolerated Well Tolerated Well #2 R [place] Cluster -Time 11:40 12:06 -Correct Patient Yes Yes -Correct Side, Site, Position Yes Yes -Correct Procedure Yes Yes -Procedure Performed Yes Yes -Type of Procedure Debridement Debridement -Clinical Debridement Subcutaneous Subcutaneous -Post Debridement Size (cm) - Length 15 16.2 -Post Debridement Size (cm) - Width 5.1 4.6 -Post Debridement Size (cm) - Depth 0.1 0.2 -Total Square Cm 76.5 74.52 -Wound/Ulcer Outcome Not Healed Not Healed -Ulcer Cleansing Rinsed/ Rinsed/ Irrigated with Irrigated with Saline Saline -Foul Odor after Cleansing No No -Bioengineered Tissue No No -Topical Lidocaine (%) 4 -Bleeding Controlled with Pressure Pressure -Treatment Response Procedure Procedure Tolerated Well Tolerated Well #1 R 2nd toe amp/Arch/ Med Ankle -Time 11:41 12:06 -Correct Patient Yes Yes -Correct Side, Site, Position Yes Yes -Correct Procedure Yes Yes -Procedure Performed Yes Yes -Type of Procedure Debridement Debridement -Clinical Debridement Subcutaneous Muscle -Post Debridement Size (cm) - Length 31.1 30.7 -Post Debridement Size (cm) - Width 4.5 3.7 -Post Debridement Size (cm) - Depth 0.1 1.3 -Total Square Cm 139.95 113.59 -Wound/Ulcer Outcome Not Healed Not Healed -Ulcer Cleansing Rinsed/ Rinsed/ Irrigated with Irrigated with Saline Saline -Foul Odor after Cleansing No No -Bioengineered Tissue No No -Topical Lidocaine (%) 4 -Bleeding Controlled with Pressure Pressure -Treatment Response Procedure Procedure Tolerated Well Tolerated Well Pain Scale: 0-10 Numeric Is Patient Pain Free? Yes Yes 09/21/18 12:12 Wound Center Nurse 2 9.L knee -Time 12:12 -Correct Patient Yes -Correct Side, Site, Position Yes -Correct Procedure Yes -Procedure Performed Yes -Type of Procedure Debridement -Clinical Debridement Subcutaneous -Post Debridement Size (cm) - Length 0.2 -Post Debridement Size (cm) - Width 0.5 -Post Debridement Size (cm) - Depth 0.1 -Total Square Cm 0.10 -Wound/Ulcer Outcome Not Healed -Ulcer Cleansing Rinsed/ Irrigated with Saline -Foul Odor after Cleansing No -Bioengineered Tissue No -Topical Lidocaine (%) -Bleeding Controlled with Pressure -Treatment Response Procedure Tolerated Well #8 r Knee -Time 12:12 -Correct Patient Yes -Correct Side, Site, Position Yes -Correct Procedure Yes -Procedure Performed Yes -Type of Procedure Debridement -Clinical Debridement Subcutaneous -Post Debridement Size (cm) - Length 1.0 -Post Debridement Size (cm) - Width 1.5 -Post Debridement Size (cm) - Depth 0.2 -Total Square Cm 1.50 -Wound/Ulcer Outcome Not Healed -Ulcer Cleansing Rinsed/ Irrigated with Saline -Foul Odor after Cleansing No -Bioengineered Tissue No -Bleeding Controlled with Pressure -Other -Treatment Response Procedure Tolerated Well #7 L Lat LE Cluster -Time -Correct Patient -Correct Side, Site, Position -Correct Procedure -Procedure Performed -Type of Procedure -Clinical Debridement -Post Debridement Size (cm) - Length -Post Debridement Size (cm) - Width -Post Debridement Size (cm) - Depth -Total Square Cm -Wound/Ulcer Outcome -Ulcer Cleansing -Foul Odor after Cleansing -Bioengineered Tissue -Topical Lidocaine (%) -Bleeding Controlled with -Treatment Response #6 L Post -Time -Correct Patient -Correct Side, Site, Position -Correct Procedure -Procedure Performed -Type of Procedure -Clinical Debridement -Post Debridement Size (cm) - Length -Post Debridement Size (cm) - Width -Post Debridement Size (cm) - Depth -Total Square Cm -Wound/Ulcer Outcome -Ulcer Cleansing -Foul Odor after Cleansing -Bioengineered Tissue -Topical Lidocaine (%) -Bleeding Controlled with -Treatment Response #5 R Lat LE -Time -Correct Patient -Correct Side, Site, Position -Correct Procedure -Procedure Performed -Type of Procedure -Clinical Debridement -Post Debridement Size (cm) - Length -Post Debridement Size (cm) - Width -Post Debridement Size (cm) - Depth -Total Square Cm -Wound/Ulcer Outcome -Ulcer Cleansing -Foul Odor after Cleansing -Bioengineered Tissue -Topical Lidocaine (%) -Bleeding Controlled with -Treatment Response #4 R post LE -Time -Correct Patient -Correct Side, Site, Position -Correct Procedure -Procedure Performed -Type of Procedure -Clinical Debridement -Post Debridement Size (cm) - Length -Post Debridement Size (cm) - Width -Post Debridement Size (cm) - Depth -Total Square Cm -Wound/Ulcer Outcome -Ulcer Cleansing -Foul Odor after Cleansing -Bioengineered Tissue -Topical Lidocaine (%) -Bleeding Controlled with -Treatment Response #3 R Med LE -Time -Correct Patient -Correct Side, Site, Position -Correct Procedure -Procedure Performed -Type of Procedure -Clinical Debridement -Post Debridement Size (cm) - Length -Post Debridement Size (cm) - Width -Post Debridement Size (cm) - Depth -Total Square Cm -Wound/Ulcer Outcome -Ulcer Cleansing -Foul Odor after Cleansing -Bioengineered Tissue -Topical Lidocaine (%) -Bleeding Controlled with -Treatment Response #2 R [place] Cluster -Time -Correct Patient -Correct Side, Site, Position -Correct Procedure -Procedure Performed -Type of Procedure -Clinical Debridement -Post Debridement Size (cm) - Length -Post Debridement Size (cm) - Width -Post Debridement Size (cm) - Depth -Total Square Cm -Wound/Ulcer Outcome -Ulcer Cleansing -Foul Odor after Cleansing -Bioengineered Tissue -Topical Lidocaine (%) -Bleeding Controlled with -Treatment Response #1 R 2nd toe amp/Arch/ Med Ankle -Time -Correct Patient -Correct Side, Site, Position -Correct Procedure -Procedure Performed -Type of Procedure -Clinical Debridement -Post Debridement Size (cm) - Length -Post Debridement Size (cm) - Width -Post Debridement Size (cm) - Depth -Total Square Cm -Wound/Ulcer Outcome -Ulcer Cleansing -Foul Odor after Cleansing -Bioengineered Tissue -Topical Lidocaine (%) -Bleeding Controlled with -Treatment Response Pain Scale: 0-10 Numeric Is Patient Pain Free? Yes Wound debrided: Left Knee Wound Grade/Stage: Stage II Type of Debridement: Excisional debridement Anesthesia Used: 4% Lidocaine Solution Depth: Down to and including healthy tissue, in the subcutaneous layer Percentage of wound debrided: 100 Instrument Used: #15 blade Tissue Removed: SLough and devitalized tissue Severity: Fat Layer Exposed Amount of bleeding with debridement: Mild Bleeding Controlled with: Pressure Patient tolerated procedure well - Additional Wound Wound debrided: Right knee Wound Grade/Stage: Stage III Type of Debridement: Excisional debridement Anesthesia Used: 4% Lidocaine Solution Depth: Down to and including healthy tissue, in the subcutaneous layer Percentage of wound debrided: 100 Instrument Used: #15 blade Tissue Removed: Slough and devitalized tissue Severity: Fat Layer Exposed Amount of bleeding with debridement: Mild Bleeding Controlled with: Pressure Patient tolerated procedure: Patient tolerated procedure well Assessment/Plan Active Problems Skin ulcer of right knee with fat layer exposed (Chronic) Skin ulcer of left knee with fat layer exposed (Chronic) Delayed wound healing (Chronic) Smoker (Chronic) 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 (Chronic) Ulcer of right lower extremity with fat layer exposed (Chronic) Ulcer of left lower extremity with fat layer exposed (Chronic) Ulcer of right foot with necrosis of muscle (Chronic) Type 2 diabetes mellitus with diabetic polyneuropathy (Chronic) Localized edema (Chronic) Malnutrition (Chronic) DM2 (diabetes mellitus, type 2) (Chronic) Assessment: Open second and third ray resection secondary to 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 Diabetic neuropathy. Malnutrition suspected. 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 Delayed healing. Gait impairment and fall risk. Other comorbidities, right knee ulcer, tendon exposed (Dr. Gilbert managed), left knee ulcer (Dr. Gilbert managed) Plan: Periwound masceration of both knee. They have being using bandaids. Advised against this. Debbridement done as documented above, procedure was welll tolerated. Continue Alana with adaptic over top. Change daily. Continue increased protein intake and other wound care per Dr. Gruber. Follow up in 1 week. This note was generated with [employer] dictation software. It may contain incorrect words, spelling, and punctuation that were not noted in checking the note before signing.
--- NOTE | 2018-09-21 13:07 | PN.PCM_ITS ---
(1) Skin ulcer of right knee with fat layer exposed Status: Chronic Current Visit: Yes Code(s): L97.812 - Non-pressure chronic ulcer of other part of right lower leg with fat layer exposed (2) Skin ulcer of left knee with fat layer exposed Status: Chronic Current Visit: Yes Code(s): L97.822 - Non-pressure chronic ulcer of other part of left lower leg with fat layer exposed (3) DM2 (diabetes mellitus, type 2) Status: Chronic Current Visit: Yes Code(s): E11.9 - Type 2 diabetes mellitus without complications Type of Wound Chief Complaint: right and left Leg ulcers and right foot ulcer History of Wound: Mr. Arguello is a 63-year-old male with multiple comorbidities follows up for delayed healing ulcers to the right foot as well as bilateral legs. It is noted he previously had widespread debridements and fasciotomies performed to bilateral lower extremities secondary to life-threatening and limb threatening infection; this was previously performed at [facility]. He continues to follow with Dr. Gilbert for her knee ulcers, and I saw him today for his other ulcer sites. He has been applying Santyl to both the wounds, Aquacel to leg ulcers, and wound VAC to right foot defect with quality improvement. He denies chills, fever or otherwise feeling of unwell. He presents today with his . He continues to smoke a half a pack of cigarettes daily. Progress of Wound: Stable. - Physical Exam Vital Signs Temp Pulse Resp BP 98.4 F 113 H 18 123/79 H 09/21/18 11:22 09/21/18 11:22 09/21/18 11:22 09/21/18 11:22 General: Alert, Oriented x3, Cooperative, No apparent distress HEENT: Atraumatic Oral: Moist Mucosa Neck: Supple Lungs: Normal air movement Extremities: No cyanosis Skin: Ulcer/ Wound Wound Measurements and Assessment WC - Nurse 1 - General Ulcer Measurement Start: 08/24/18 12:02 Freq: Status: Active Protocol: Activity Type Activity Date Activity User E-Sign Co-Sign Detail Recorded Client Recorded Date Recorded By Document 09/21/18 11:22 [id number] 09/21/18 11:47 09/21/18 11:22 Wound Center Nurse 1 [Ulcer Assessment] 9.L knee -Combined with other wound No -Current Size (cm) - Length 0.4 -Current Size (cm) - Width 0.7 -Current Size (cm) - Depth 0.1 -Total Square Cm 0.28 -Photo Taken No -Epithelialization None Present -Tunneling No -Undermining/Tunneling No -Circular Undermining No -Exudate Amt Small (1-33%) -Exudate Type Serosanguineous -Granulation Amt Small (1-33%) -Granulation Quality Pale [place] -Slough/Fibrin Yes -Necrosis Amt Medium (34-66%) -Necrotic Tissue Type Adherent Slough -Texture (Lisa-wound Skin Appearance) Assessed Scarring -Moisture (Lisa-wound Skin Appearance Assessed ) Dry/Scaly -Color (Lisa-wound Skin Appearance) No Abnormality Assessed -Temperature (Lisa-wound Skin No Abnormality Appearance) (Pt Warm) -Tenderness on Palpation (Lisa-wound No Skin Appearance) -Ulcer Cleansing Rinsed/ Irrigated with Saline -Foul Odor after Cleansing No -Anesthetic Used 4% Lidocaine Solution #8 r Knee -Combined with other wound No -Current Size (cm) - Length 1.3 -Current Size (cm) - Width 1.5 -Current Size (cm) - Depth 0.4 -Total Square Cm 1.95 -Photo Taken No -Epithelialization None Present -Tunneling No -Undermining/Tunneling No -Circular Undermining No -Exudate Amt Medium (34-66%) -Exudate Type Serosanguineous -Wound Margin Distinct, Outline Attached -Granulation Amt Small (1-33%) -Granulation Quality Pale [place] -Slough/Fibrin Yes -Necrosis Amt Medium (34-66%) -Necrotic Tissue Type Adherent Slough -Texture (Lisa-wound Skin Appearance) Assessed Scarring -Moisture (Lisa-wound Skin Appearance Assessed ) Maceration -Color (Lisa-wound Skin Appearance) No Abnormality Assessed -Temperature (Lisa-wound Skin No Abnormality Appearance) (Pt Warm) -Tenderness on Palpation (Lisa-wound No Skin Appearance) -Ulcer Cleansing Rinsed/ Irrigated with Saline -Foul Odor after Cleansing No -Anesthetic Used 4% Lidocaine Solution #7 L Lat LE Cluster -Combined with other wound No -Current Size (cm) - Length 8.2 -Current Size (cm) - Width 9.0 -Current Size (cm) - Depth 0.1 -Total Square Cm 73.80 -Photo Taken No -Epithelialization None Present -Tunneling No -Undermining/Tunneling No -Circular Undermining No -Exudate Amt Small (1-33%) -Exudate Type Serosanguineous -Wound Margin Distinct, Outline Attached -Granulation Amt Medium (34-66%) -Granulation Quality Pale [place] -Slough/Fibrin Yes -Necrosis Amt Medium (34-66%) -Necrotic Tissue Type Adherent Slough -Texture (Lisa-wound Skin Appearance) Assessed Scarring -Moisture (Lisa-wound Skin Appearance Assessed ) Dry/Scaly -Color (Lisa-wound Skin Appearance) No Abnormality Assessed -Temperature (Lisa-wound Skin No Abnormality Appearance) (Pt Warm) -Tenderness on Palpation (Lisa-wound No Skin Appearance) -Foul Odor after Cleansing No -Anesthetic Used 4% Lidocaine Solution #6 L Post -Combined with other wound No -Current Size (cm) - Length 21.3 -Current Size (cm) - Width 3.3 -Current Size (cm) - Depth 0.1 -Total Square Cm 70.29 -Photo Taken No -Epithelialization None Present -Tunneling No -Undermining/Tunneling No -Circular Undermining No -Exudate Amt Small (1-33%) -Exudate Type Serosanguineous -Wound Margin Distinct, Outline Attached -Granulation Amt Medium (34-66%) -Granulation Quality Pale -Slough/Fibrin Yes -Necrosis Amt Medium (34-66%) -Necrotic Tissue Type Adherent Slough -Texture (Lisa-wound Skin Appearance) Not Assessed Scarring -Moisture (Lisa-wound Skin Appearance Assessed ) Dry/Scaly -Color (Lisa-wound Skin Appearance) No Abnormality Assessed -Temperature (Lisa-wound Skin No Abnormality Appearance) (Pt Warm) -Tenderness on Palpation (Lisa-wound No Skin Appearance) -Ulcer Cleansing Rinsed/ Irrigated with Saline -Foul Odor after Cleansing No -Anesthetic Used 4% Lidocaine Solution #5 R Lat LE -Combined with other wound No -Current Size (cm) - Length 4.4 -Current Size (cm) - Width 2.3 -Current Size (cm) - Depth 0.1 -Total Square Cm 10.12 -Photo Taken No -Epithelialization None Present -Tunneling No -Undermining/Tunneling No -Circular Undermining No -Exudate Amt Medium (34-66%) -Exudate Type Serosanguineous -Wound Margin Distinct, Outline Attached -Granulation Amt Medium (34-66%) -Granulation Quality Pale [place] -Slough/Fibrin Yes -Necrosis Amt Small (1-33%) -Necrotic Tissue Type Adherent Slough -Texture (Lisa-wound Skin Appearance) Assessed Scarring -Moisture (Lisa-wound Skin Appearance Assessed ) Dry/Scaly -Color (Lisa-wound Skin Appearance) No Abnormality Assessed -Temperature (Lisa-wound Skin No Abnormality Appearance) (Pt Warm) -Tenderness on Palpation (Lisa-wound No Skin Appearance) -Ulcer Cleansing Rinsed/ Irrigated with Saline -Foul Odor after Cleansing No -Anesthetic Used 4% Lidocaine Solution #4 R post LE -Combined with other wound No -Current Size (cm) - Length 1.4 -Current Size (cm) - Width 1.3 -Current Size (cm) - Depth 0.2 -Total Square Cm 1.82 -Photo Taken No -Epithelialization None Present -Tunneling No -Undermining/Tunneling No -Circular Undermining No -Exudate Amt Medium (34-66%) -Exudate Type Serosanguineous -Wound Margin Distinct, Outline Attached -Granulation Amt Small (1-33%) -Granulation Quality Pale [place] -Slough/Fibrin Yes -Necrosis Amt Medium (34-66%) -Necrotic Tissue Type Adherent Slough -Texture (Lisa-wound Skin Appearance) Assessed Scarring -Moisture (Lisa-wound Skin Appearance Assessed ) Dry/Scaly -Color (Lisa-wound Skin Appearance) No Abnormality Assessed -Temperature (Lisa-wound Skin No Abnormality Appearance) (Pt Warm) -Tenderness on Palpation (Lisa-wound No Skin Appearance) -Ulcer Cleansing Rinsed/ Irrigated with Saline -Foul Odor after Cleansing No -Anesthetic Used 4% Lidocaine Solution #3 R Med LE -Combined with other wound No -Current Size (cm) - Length 3.5 -Current Size (cm) - Width 1.9 -Current Size (cm) - Depth 0.5 -Total Square Cm 6.65 -Photo Taken No -Epithelialization None Present -Tunneling No -Undermining/Tunneling No -Circular Undermining No -Exudate Amt Medium (34-66%) -Exudate Type Serosanguineous -Wound Margin Distinct, Outline Attached -Granulation Amt Medium (34-66%) -Granulation Quality [place] -Slough/Fibrin Yes -Necrosis Amt Medium (34-66%) -Necrotic Tissue Type Adherent Slough -Texture (Lisa-wound Skin Appearance) Assessed Scarring -Moisture (Lisa-wound Skin Appearance Assessed ) Dry/Scaly -Color (Lisa-wound Skin Appearance) No Abnormality Assessed -Temperature (Lisa-wound Skin No Abnormality Appearance) (Pt Warm) -Tenderness on Palpation (Lisa-wound No Skin Appearance) -Ulcer Cleansing Rinsed/ Irrigated with Saline -Foul Odor after Cleansing No -Anesthetic Used 4% Lidocaine Solution #2 R [place] Cluster -Combined with other wound No -Current Size (cm) - Length 16.1 -Current Size (cm) - Width 4.5 -Current Size (cm) - Depth 0.2 -Total Square Cm 72.45 -Photo Taken No -Epithelialization None Present -Tunneling No -Undermining/Tunneling No -Circular Undermining No -Exudate Amt Medium (34-66%) -Exudate Type Serosanguineous -Wound Margin Distinct, Outline Attached -Granulation Amt Medium (34-66%) -Granulation Quality Pale [place] -Slough/Fibrin No -Necrosis Amt Medium (34-66%) -Necrotic Tissue Type Adherent Slough -Texture (Lisa-wound Skin Appearance) Not Assessed Scarring -Moisture (Lisa-wound Skin Appearance Assessed ) Maceration -Color (Lisa-wound Skin Appearance) No Abnormality Assessed -Temperature (Lisa-wound Skin No Abnormality Appearance) (Pt Warm) -Tenderness on Palpation (Lisa-wound No Skin Appearance) -Foul Odor after Cleansing No -Anesthetic Used 4% Lidocaine Solution #1 R 2nd toe amp/Arch/ Med Ankle -Current Size (cm) - Length 30.6 -Current Size (cm) - Width 3.6 -Current Size (cm) - Depth 1.3 -Total Square Cm 110.16 -Photo Taken No -Epithelialization None Present -Tunneling No -Undermining/Tunneling No -Circular Undermining No -Exudate Amt Medium (34-66%) -Exudate Type Serosanguineous -Wound Margin Thickened -Granulation Amt Large (67-100%) -Granulation Quality Red -Slough/Fibrin Yes -Necrosis Amt Medium (34-66%) -Necrotic Tissue Type Adherent Slough -Texture (Lisa-wound Skin Appearance) Assessed Scarring -Moisture (Lisa-wound Skin Appearance Assessed ) Maceration -Color (Lisa-wound Skin Appearance) No Abnormality Assessed -Temperature (Lisa-wound Skin No Abnormality Appearance) (Pt Warm) -Tenderness on Palpation (Lisa-wound No Skin Appearance) -Foul Odor after Cleansing No -Anesthetic Used 4% Lidocaine Solution [Edema Assessment] -Right Calf (cm) 35.6 -Right Ankle (cm) 23.6 -Left Calf (cm) 34 -Left Ankle (cm) 22 WC - Nurse 2 - General Ulcer CM Notes Start: 08/24/18 12:02 Freq: Status: Active Protocol: Activity Type Activity Date Activity User E-Sign Co-Sign Detail Recorded Client Recorded Date Recorded By Document 09/21/18 12:03 TM [id number] 09/21/18 12:08 TM Document 09/21/18 12:12 MW [id number] 09/21/18 12:14 MW 09/21/18 09/21/18 12:03 12:12 Wound Center Nurse 2 [Procedure/Treatment] 9.L knee -Time 12:12 -Correct Patient Yes -Correct Side, Site, Position Yes -Correct Procedure Yes -Procedure Performed Yes -Type of Procedure Debridement -Clinical Debridement Subcutaneous -Post Debridement Size (cm) - Length 0.2 -Post Debridement Size (cm) - Width 0.5 -Post Debridement Size (cm) - Depth 0.1 -Total Square Cm 0.10 -Wound/Ulcer Outcome Not Healed -Ulcer Cleansing Rinsed/ Irrigated with Saline -Foul Odor after Cleansing No -Bioengineered Tissue No -Bleeding Controlled with Pressure -Treatment Response Procedure Tolerated Well #8 r Knee -Time 12:12 -Correct Patient Yes -Correct Side, Site, Position Yes -Correct Procedure Yes -Procedure Performed Yes -Type of Procedure Debridement -Clinical Debridement Subcutaneous -Post Debridement Size (cm) - Length 1.0 -Post Debridement Size (cm) - Width 1.5 -Post Debridement Size (cm) - Depth 0.2 -Total Square Cm 1.50 -Wound/Ulcer Outcome Not Healed -Ulcer Cleansing Rinsed/ Irrigated with Saline -Foul Odor after Cleansing No -Bioengineered Tissue No -Bleeding Controlled with Pressure -Treatment Response Procedure Tolerated Well #7 L Lat LE Cluster -Time 12:03 -Correct Patient Yes -Correct Side, Site, Position Yes -Correct Procedure Yes -Procedure Performed Yes -Post Debridement Size (cm) - Length 0 -Post Debridement Size (cm) - Width 0 -Post Debridement Size (cm) - Depth 0 -Total Square Cm 0 -Wound/Ulcer Outcome Healed- Epithelialized -Ulcer Cleansing Rinsed/ Irrigated with Saline -Foul Odor after Cleansing No -Bioengineered Tissue No -Topical Lidocaine (%) 4 -Bleeding Controlled with NA -Treatment Response Procedure Tolerated Well #6 L Post -Time 12:04 -Correct Patient Yes -Correct Side, Site, Position Yes -Correct Procedure Yes -Procedure Performed Yes -Type of Procedure Debridement -Clinical Debridement Subcutaneous -Post Debridement Size (cm) - Length 21.4 -Post Debridement Size (cm) - Width 3.4 -Post Debridement Size (cm) - Depth 0.1 -Total Square Cm 72.76 -Wound/Ulcer Outcome Not Healed -Ulcer Cleansing Rinsed/ Irrigated with Saline -Foul Odor after Cleansing No -Bioengineered Tissue No -Topical Lidocaine (%) 4 -Bleeding Controlled with Pressure -Treatment Response Procedure Tolerated Well #5 R Lat LE -Time 12:04 -Correct Patient Yes -Correct Side, Site, Position Yes -Correct Procedure Yes -Procedure Performed Yes -Type of Procedure Debridement -Clinical Debridement Subcutaneous -Post Debridement Size (cm) - Length 4.5 -Post Debridement Size (cm) - Width 2.4 -Post Debridement Size (cm) - Depth 0.1 -Total Square Cm 10.80 -Wound/Ulcer Outcome Not Healed -Ulcer Cleansing Rinsed/ Irrigated with Saline -Foul Odor after Cleansing No -Bioengineered Tissue No -Topical Lidocaine (%) 4 -Bleeding Controlled with Pressure -Treatment Response Procedure Tolerated Well #4 R post LE -Time 12:05 -Correct Patient Yes -Correct Side, Site, Position Yes -Correct Procedure Yes -Procedure Performed Yes -Type of Procedure Debridement -Clinical Debridement Subcutaneous -Post Debridement Size (cm) - Length 1.5 -Post Debridement Size (cm) - Width 1.4 -Post Debridement Size (cm) - Depth 0.2 -Total Square Cm 2.10 -Wound/Ulcer Outcome Not Healed -Ulcer Cleansing Rinsed/ Irrigated with Saline -Foul Odor after Cleansing No -Bioengineered Tissue No -Topical Lidocaine (%) 4 -Bleeding Controlled with Pressure -Treatment Response Procedure Tolerated Well #3 R Med LE -Time 12:05 -Correct Patient Yes -Correct Side, Site, Position Yes -Correct Procedure Yes -Procedure Performed Yes -Type of Procedure Debridement -Clinical Debridement Subcutaneous -Post Debridement Size (cm) - Length 3.6 -Post Debridement Size (cm) - Width 2.0 -Post Debridement Size (cm) - Depth 0.5 -Total Square Cm 7.20 -Wound/Ulcer Outcome Not Healed -Ulcer Cleansing Rinsed/ Irrigated with Saline -Foul Odor after Cleansing No -Bioengineered Tissue No -Topical Lidocaine (%) 4 -Bleeding Controlled with Pressure -Treatment Response Procedure Tolerated Well #2 R [place] Cluster -Time 12:06 -Correct Patient Yes -Correct Side, Site, Position Yes -Correct Procedure Yes -Procedure Performed Yes -Type of Procedure Debridement -Clinical Debridement Subcutaneous -Post Debridement Size (cm) - Length 16.2 -Post Debridement Size (cm) - Width 4.6 -Post Debridement Size (cm) - Depth 0.2 -Total Square Cm 74.52 -Wound/Ulcer Outcome Not Healed -Ulcer Cleansing Rinsed/ Irrigated with Saline -Foul Odor after Cleansing No -Bioengineered Tissue No -Topical Lidocaine (%) 4 -Bleeding Controlled with Pressure -Treatment Response Procedure Tolerated Well #1 R 2nd toe amp/Arch/ Med Ankle -Time 12:06 -Correct Patient Yes -Correct Side, Site, Position Yes -Correct Procedure Yes -Procedure Performed Yes -Type of Procedure Debridement -Clinical Debridement Muscle -Post Debridement Size (cm) - Length 30.7 -Post Debridement Size (cm) - Width 3.7 -Post Debridement Size (cm) - Depth 1.3 -Total Square Cm 113.59 -Wound/Ulcer Outcome Not Healed -Ulcer Cleansing Rinsed/ Irrigated with Saline -Foul Odor after Cleansing No -Bioengineered Tissue No -Topical Lidocaine (%) 4 -Bleeding Controlled with Pressure -Treatment Response Procedure Tolerated Well [See Physician Procedure note for Specifics] Pain Scale: 0-10 Numeric [Pain] -Is Patient Pain Free? Yes Yes Musculoskeletal: No Muscle Wasting Neurological: Cranial nerves II-XII grossly intact Psych/Mental Status: Normal Affect Debridement Note Post-Debridement Measurements/Treatment WC - Nurse 2 - General Ulcer CM Notes Start: 08/24/18 12:02 Freq: Status: Active Protocol: Activity Type Activity Date Activity User E-Sign Co-Sign Detail Recorded Client Recorded Date Recorded By Document 08/24/18 12:18 MW [id number] 08/24/18 12:24 MW Document 09/07/18 09:37 MW [id number] 09/07/18 09:41 MW Document 09/07/18 10:12 TM [id number] 09/07/18 10:17 TM Document 09/14/18 11:38 JF [id number] 09/14/18 11:41 JF Document 09/14/18 11:43 JF [id number] 09/14/18 11:50 JF Document 09/21/18 12:03 TM [id number] 09/21/18 12:08 TM Document 09/21/18 12:12 MW [id number] 09/21/18 12:14 MW 08/24/18 09/07/18 09/07/18 12:18 09:37 10:12 Wound Center Nurse 2 9.L knee -Time 12:19 09:38 10:12 -Correct Patient Yes Yes Yes -Correct Side, Site, Position Yes Yes Yes -Correct Procedure Yes Yes Yes -Procedure Performed Yes Yes Yes -Type of Procedure Debridement Debridement -Clinical Debridement Subcutaneous Subcutaneous -Post Debridement Size (cm) - Length 0.3 0.4 -Post Debridement Size (cm) - Width 1.2 1.0 -Post Debridement Size (cm) - Depth 0.1 0.2 -Total Square Cm 0.36 0.40 -Wound/Ulcer Outcome Not Healed Not Healed Not Healed -Ulcer Cleansing Rinsed/ Rinsed/ Rinsed/ Irrigated with Irrigated with Irrigated with Saline Saline Saline -Foul Odor after Cleansing No No No -Bioengineered Tissue No No No -Topical Lidocaine (%) 4 -Bleeding Controlled with Pressure Pressure Pressure -Treatment Response Procedure Procedure Tolerated Well Tolerated Well #8 r Knee -Time 12:19 09:38 10:12 -Correct Patient Yes Yes Yes -Correct Side, Site, Position Yes Yes Yes -Correct Procedure Yes Yes Yes -Procedure Performed Yes Yes Yes -Type of Procedure Debridement Debridement -Clinical Debridement Subcutaneous Subcutaneous -Post Debridement Size (cm) - Length 1.3 1.2 -Post Debridement Size (cm) - Width 2.0 1.7 -Post Debridement Size (cm) - Depth 0.3 0.3 -Total Square Cm 2.60 2.04 -Wound/Ulcer Outcome Not Healed Not Healed Not Healed -Ulcer Cleansing Rinsed/ Rinsed/ Rinsed/ Irrigated with Irrigated with Irrigated with Saline Saline Saline -Foul Odor after Cleansing No No No -Bioengineered Tissue No No No -Bleeding Controlled with Pressure Pressure NA -Other circular undermining @10 , 1.4cm -Treatment Response Procedure Procedure Tolerated Well Tolerated Well #7 L Lat LE Cluster -Time 10:13 -Correct Patient Yes -Correct Side, Site, Position Yes -Correct Procedure Yes -Procedure Performed Yes -Type of Procedure Debridement -Clinical Debridement Subcutaneous -Post Debridement Size (cm) - Length 7.7 -Post Debridement Size (cm) - Width 2.9 -Post Debridement Size (cm) - Depth 0.1 -Total Square Cm 22.33 -Wound/Ulcer Outcome Not Healed -Ulcer Cleansing Rinsed/ Irrigated with Saline -Foul Odor after Cleansing No -Bioengineered Tissue No -Topical Lidocaine (%) 4 -Bleeding Controlled with Pressure -Treatment Response Procedure Tolerated Well #6 L Post -Time 10:13 -Correct Patient Yes -Correct Side, Site, Position Yes -Correct Procedure Yes -Procedure Performed Yes -Type of Procedure Debridement -Clinical Debridement Muscle -Post Debridement Size (cm) - Length 7.3 -Post Debridement Size (cm) - Width 22.7 -Post Debridement Size (cm) - Depth 0.2 -Total Square Cm 165.71 -Wound/Ulcer Outcome Not Healed -Ulcer Cleansing Rinsed/ Irrigated with Saline -Foul Odor after Cleansing No -Bioengineered Tissue No -Topical Lidocaine (%) 4 -Bleeding Controlled with Pressure -Treatment Response Procedure Tolerated Well #5 R Lat LE -Time 10:14 -Correct Patient Yes -Correct Side, Site, Position Yes -Correct Procedure Yes -Procedure Performed Yes -Type of Procedure Debridement -Clinical Debridement Subcutaneous -Post Debridement Size (cm) - Length 4.7 -Post Debridement Size (cm) - Width 2.4 -Post Debridement Size (cm) - Depth 0.1 -Total Square Cm 11.28 -Wound/Ulcer Outcome Not Healed -Ulcer Cleansing Rinsed/ Irrigated with Saline -Foul Odor after Cleansing No -Bioengineered Tissue No -Topical Lidocaine (%) 4 -Bleeding Controlled with Pressure -Treatment Response Procedure Tolerated Well #4 R post LE -Time 10:15 -Correct Patient Yes -Correct Side, Site, Position Yes -Correct Procedure Yes -Procedure Performed Yes -Type of Procedure Debridement -Clinical Debridement Subcutaneous -Post Debridement Size (cm) - Length 2.1 -Post Debridement Size (cm) - Width 1.3 -Post Debridement Size (cm) - Depth 0.1 -Total Square Cm 2.73 -Wound/Ulcer Outcome Not Healed -Ulcer Cleansing Rinsed/ Irrigated with Saline -Foul Odor after Cleansing No -Bioengineered Tissue No -Topical Lidocaine (%) 4 -Bleeding Controlled with Pressure -Treatment Response Procedure Tolerated Well #3 R Med LE -Time 10:15 -Correct Patient Yes -Correct Side, Site, Position Yes -Correct Procedure Yes -Procedure Performed Yes -Type of Procedure Debridement -Clinical Debridement Subcutaneous -Post Debridement Size (cm) - Length 4.5 -Post Debridement Size (cm) - Width 0.9 -Post Debridement Size (cm) - Depth 0.3 -Total Square Cm 4.05 -Wound/Ulcer Outcome Not Healed -Ulcer Cleansing Rinsed/ Irrigated with Saline -Foul Odor after Cleansing No -Bioengineered Tissue No -Topical Lidocaine (%) 4 -Bleeding Controlled with Pressure -Treatment Response Procedure Tolerated Well #2 R [place] Cluster -Time 10:15 -Correct Patient Yes -Correct Side, Site, Position Yes -Correct Procedure Yes -Procedure Performed Yes -Type of Procedure Debridement -Clinical Debridement Subcutaneous -Post Debridement Size (cm) - Length 16.1 -Post Debridement Size (cm) - Width 4.6 -Post Debridement Size (cm) - Depth 0.2 -Total Square Cm 74.06 -Wound/Ulcer Outcome Not Healed -Ulcer Cleansing Rinsed/ Irrigated with Saline -Foul Odor after Cleansing No -Bioengineered Tissue No -Topical Lidocaine (%) 4 -Bleeding Controlled with Pressure -Treatment Response Procedure Tolerated Well #1 R 2nd toe amp/Arch/ Med Ankle -Time 10:16 -Correct Patient Yes -Correct Side, Site, Position Yes -Correct Procedure Yes -Procedure Performed Yes -Type of Procedure Debridement -Clinical Debridement Muscle -Post Debridement Size (cm) - Length 33.4 -Post Debridement Size (cm) - Width 4.1 -Post Debridement Size (cm) - Depth 2.2 -Total Square Cm 136.94 -Wound/Ulcer Outcome Not Healed -Ulcer Cleansing Rinsed/ Irrigated with Saline -Foul Odor after Cleansing No -Bioengineered Tissue No -Topical Lidocaine (%) 4 -Bleeding Controlled with Pressure -Treatment Response Procedure Tolerated Well Pain Scale: 0-10 Numeric Is Patient Pain Free? Yes 09/14/18 09/14/18 09/21/18 11:38 11:43 12:03 Wound Center Nurse 2 9.L knee -Time 11:43 -Correct Patient No Yes -Correct Side, Site, Position No Yes -Correct Procedure No Yes -Procedure Performed No Yes -Type of Procedure Debridement -Clinical Debridement Subcutaneous -Post Debridement Size (cm) - Length 0.3 -Post Debridement Size (cm) - Width 0.7 -Post Debridement Size (cm) - Depth 0.1 -Total Square Cm 0.21 -Wound/Ulcer Outcome Not Healed -Ulcer Cleansing Rinsed/ Irrigated with Saline -Foul Odor after Cleansing No -Bioengineered Tissue No -Topical Lidocaine (%) -Bleeding Controlled with Pressure -Treatment Response Procedure Tolerated Well #8 r Knee -Time 11:43 -Correct Patient No Yes -Correct Side, Site, Position No Yes -Correct Procedure No Yes -Procedure Performed No Yes -Type of Procedure Debridement -Clinical Debridement Subcutaneous -Post Debridement Size (cm) - Length 1.0 -Post Debridement Size (cm) - Width 1.9 -Post Debridement Size (cm) - Depth 0.3 -Total Square Cm 1.90 -Wound/Ulcer Outcome Not Healed -Ulcer Cleansing Rinsed/ Irrigated with Saline -Foul Odor after Cleansing No -Bioengineered Tissue No -Bleeding Controlled with Pressure -Other -Treatment Response Procedure Tolerated Well #7 L Lat LE Cluster -Time 11:38 12:03 -Correct Patient Yes Yes -Correct Side, Site, Position Yes Yes -Correct Procedure Yes Yes -Procedure Performed Yes Yes -Type of Procedure Debridement -Clinical Debridement Subcutaneous -Post Debridement Size (cm) - Length 7 0 -Post Debridement Size (cm) - Width 2.6 0 -Post Debridement Size (cm) - Depth 0.2 0 -Total Square Cm 18.2 0 -Wound/Ulcer Outcome Not Healed Healed- Epithelialized -Ulcer Cleansing Rinsed/ Rinsed/ Irrigated with Irrigated with Saline Saline -Foul Odor after Cleansing No No -Bioengineered Tissue No No -Topical Lidocaine (%) 4 -Bleeding Controlled with Pressure NA -Treatment Response Procedure Procedure Tolerated Well Tolerated Well #6 L Post -Time 11:39 12:04 -Correct Patient Yes Yes -Correct Side, Site, Position Yes Yes -Correct Procedure Yes Yes -Procedure Performed Yes Yes -Type of Procedure Debridement Debridement -Clinical Debridement Subcutaneous Subcutaneous -Post Debridement Size (cm) - Length 21.1 21.4 -Post Debridement Size (cm) - Width 3 3.4 -Post Debridement Size (cm) - Depth 0.1 0.1 -Total Square Cm 63.3 72.76 -Wound/Ulcer Outcome Not Healed Not Healed -Ulcer Cleansing Rinsed/ Rinsed/ Irrigated with Irrigated with Saline Saline -Foul Odor after Cleansing No No -Bioengineered Tissue No No -Topical Lidocaine (%) 4 -Bleeding Controlled with Pressure Pressure -Treatment Response Procedure Procedure Tolerated Well Tolerated Well #5 R [facility] LE -Time 11:39 12:04 -Correct Patient Yes Yes -Correct Side, Site, Position Yes Yes -Correct Procedure Yes Yes -Procedure Performed Yes Yes -Type of Procedure Debridement Debridement -Clinical Debridement Subcutaneous Subcutaneous -Post Debridement Size (cm) - Length 3.5 4.5 -Post Debridement Size (cm) - Width 3 2.4 -Post Debridement Size (cm) - Depth 0.1 0.1 -Total Square Cm 10.5 10.80 -Wound/Ulcer Outcome Not Healed Not Healed -Ulcer Cleansing Rinsed/ Rinsed/ Irrigated with Irrigated with Saline Saline -Foul Odor after Cleansing No No -Bioengineered Tissue No No -Topical Lidocaine (%) 4 -Bleeding Controlled with Pressure Pressure -Treatment Response Procedure Procedure Tolerated Well Tolerated Well #4 R post LE -Time 11:39 12:05 -Correct Patient Yes Yes -Correct Side, Site, Position Yes Yes -Correct Procedure Yes Yes -Procedure Performed Yes Yes -Type of Procedure Debridement Debridement -Clinical Debridement Subcutaneous Subcutaneous -Post Debridement Size (cm) - Length 1.3 1.5 -Post Debridement Size (cm) - Width 1 1.4 -Post Debridement Size (cm) - Depth 0.2 0.2 -Total Square Cm 1.3 2.10 -Wound/Ulcer Outcome Not Healed Not Healed -Ulcer Cleansing Rinsed/ Rinsed/ Irrigated with Irrigated with Saline Saline -Foul Odor after Cleansing No No -Bioengineered Tissue No No -Topical Lidocaine (%) 4 -Bleeding Controlled with Pressure Pressure -Treatment Response Procedure Procedure Tolerated Well Tolerated Well #3 R [facility] LE -Time 11:40 12:05 -Correct Patient Yes Yes -Correct Side, Site, Position Yes Yes -Correct Procedure Yes Yes -Procedure Performed Yes Yes -Type of Procedure Debridement Debridement -Clinical Debridement Subcutaneous Subcutaneous -Post Debridement Size (cm) - Length 3.8 3.6 -Post Debridement Size (cm) - Width 1.6 2.0 -Post Debridement Size (cm) - Depth 0.3 0.5 -Total Square Cm 6.08 7.20 -Wound/Ulcer Outcome Not Healed Not Healed -Ulcer Cleansing Rinsed/ Rinsed/ Irrigated with Irrigated with Saline Saline -Foul Odor after Cleansing No No -Bioengineered Tissue No No -Topical Lidocaine (%) 4 -Bleeding Controlled with Pressure Pressure -Treatment Response Procedure Procedure Tolerated Well Tolerated Well #2 R [place] Cluster -Time 11:40 12:06 -Correct Patient Yes Yes -Correct Side, Site, Position Yes Yes -Correct Procedure Yes Yes -Procedure Performed Yes Yes -Type of Procedure Debridement Debridement -Clinical Debridement Subcutaneous Subcutaneous -Post Debridement Size (cm) - Length 15 16.2 -Post Debridement Size (cm) - Width 5.1 4.6 -Post Debridement Size (cm) - Depth 0.1 0.2 -Total Square Cm 76.5 74.52 -Wound/Ulcer Outcome Not Healed Not Healed -Ulcer Cleansing Rinsed/ Rinsed/ Irrigated with Irrigated with Saline Saline -Foul Odor after Cleansing No No -Bioengineered Tissue No No -Topical Lidocaine (%) 4 -Bleeding Controlled with Pressure Pressure -Treatment Response Procedure Procedure Tolerated Well Tolerated Well #1 R 2nd toe amp/Arch/ Med Ankle -Time 11:41 12:06 -Correct Patient Yes Yes -Correct Side, Site, Position Yes Yes -Correct Procedure Yes Yes -Procedure Performed Yes Yes -Type of Procedure Debridement Debridement -Clinical Debridement Subcutaneous Muscle -Post Debridement Size (cm) - Length 31.1 30.7 -Post Debridement Size (cm) - Width 4.5 3.7 -Post Debridement Size (cm) - Depth 0.1 1.3 -Total Square Cm 139.95 113.59 -Wound/Ulcer Outcome Not Healed Not Healed -Ulcer Cleansing Rinsed/ Rinsed/ Irrigated with Irrigated with Saline Saline -Foul Odor after Cleansing No No -Bioengineered Tissue No No -Topical Lidocaine (%) 4 -Bleeding Controlled with Pressure Pressure -Treatment Response Procedure Procedure Tolerated Well Tolerated Well Pain Scale: 0-10 Numeric Is Patient Pain Free? Yes Yes 09/21/18 12:12 Wound Center Nurse 2 9.L knee -Time 12:12 -Correct Patient Yes -Correct Side, Site, Position Yes -Correct Procedure Yes -Procedure Performed Yes -Type of Procedure Debridement -Clinical Debridement Subcutaneous -Post Debridement Size (cm) - Length 0.2 -Post Debridement Size (cm) - Width 0.5 -Post Debridement Size (cm) - Depth 0.1 -Total Square Cm 0.10 -Wound/Ulcer Outcome Not Healed -Ulcer Cleansing Rinsed/ Irrigated with Saline -Foul Odor after Cleansing No -Bioengineered Tissue No -Topical Lidocaine (%) -Bleeding Controlled with Pressure -Treatment Response Procedure Tolerated Well #8 r Knee -Time 12:12 -Correct Patient Yes -Correct Side, Site, Position Yes -Correct Procedure Yes -Procedure Performed Yes -Type of Procedure Debridement -Clinical Debridement Subcutaneous -Post Debridement Size (cm) - Length 1.0 -Post Debridement Size (cm) - Width 1.5 -Post Debridement Size (cm) - Depth 0.2 -Total Square Cm 1.50 -Wound/Ulcer Outcome Not Healed -Ulcer Cleansing Rinsed/ Irrigated with Saline -Foul Odor after Cleansing No -Bioengineered Tissue No -Bleeding Controlled with Pressure -Other -Treatment Response Procedure Tolerated Well #7 L Lat LE Cluster -Time -Correct Patient -Correct Side, Site, Position -Correct Procedure -Procedure Performed -Type of Procedure -Clinical Debridement -Post Debridement Size (cm) - Length -Post Debridement Size (cm) - Width -Post Debridement Size (cm) - Depth -Total Square Cm -Wound/Ulcer Outcome -Ulcer Cleansing -Foul Odor after Cleansing -Bioengineered Tissue -Topical Lidocaine (%) -Bleeding Controlled with -Treatment Response #6 L Post -Time -Correct Patient -Correct Side, Site, Position -Correct Procedure -Procedure Performed -Type of Procedure -Clinical Debridement -Post Debridement Size (cm) - Length -Post Debridement Size (cm) - Width -Post Debridement Size (cm) - Depth -Total Square Cm -Wound/Ulcer Outcome -Ulcer Cleansing -Foul Odor after Cleansing -Bioengineered Tissue -Topical Lidocaine (%) -Bleeding Controlled with -Treatment Response #5 R Lat LE -Time -Correct Patient -Correct Side, Site, Position -Correct Procedure -Procedure Performed -Type of Procedure -Clinical Debridement -Post Debridement Size (cm) - Length -Post Debridement Size (cm) - Width -Post Debridement Size (cm) - Depth -Total Square Cm -Wound/Ulcer Outcome -Ulcer Cleansing -Foul Odor after Cleansing -Bioengineered Tissue -Topical Lidocaine (%) -Bleeding Controlled with -Treatment Response #4 R post LE -Time -Correct Patient -Correct Side, Site, Position -Correct Procedure -Procedure Performed -Type of Procedure -Clinical Debridement -Post Debridement Size (cm) - Length -Post Debridement Size (cm) - Width -Post Debridement Size (cm) - Depth -Total Square Cm -Wound/Ulcer Outcome -Ulcer Cleansing -Foul Odor after Cleansing -Bioengineered Tissue -Topical Lidocaine (%) -Bleeding Controlled with -Treatment Response #3 R Med LE -Time -Correct Patient -Correct Side, Site, Position -Correct Procedure -Procedure Performed -Type of Procedure -Clinical Debridement -Post Debridement Size (cm) - Length -Post Debridement Size (cm) - Width -Post Debridement Size (cm) - Depth -Total Square Cm -Wound/Ulcer Outcome -Ulcer Cleansing -Foul Odor after Cleansing -Bioengineered Tissue -Topical Lidocaine (%) -Bleeding Controlled with -Treatment Response #2 R [place] Cluster -Time -Correct Patient -Correct Side, Site, Position -Correct Procedure -Procedure Performed -Type of Procedure -Clinical Debridement -Post Debridement Size (cm) - Length -Post Debridement Size (cm) - Width -Post Debridement Size (cm) - Depth -Total Square Cm -Wound/Ulcer Outcome -Ulcer Cleansing -Foul Odor after Cleansing -Bioengineered Tissue -Topical Lidocaine (%) -Bleeding Controlled with -Treatment Response #1 R 2nd toe amp/Arch/ Med Ankle -Time -Correct Patient -Correct Side, Site, Position -Correct Procedure -Procedure Performed -Type of Procedure -Clinical Debridement -Post Debridement Size (cm) - Length -Post Debridement Size (cm) - Width -Post Debridement Size (cm) - Depth -Total Square Cm -Wound/Ulcer Outcome -Ulcer Cleansing -Foul Odor after Cleansing -Bioengineered Tissue -Topical Lidocaine (%) -Bleeding Controlled with -Treatment Response Pain Scale: 0-10 Numeric Is Patient Pain Free? Yes Wound debrided: Left Knee Wound Grade/Stage: Stage II Type of Debridement: Excisional debridement Anesthesia Used: 4% Lidocaine Solution Depth: Down to and including healthy tissue, in the subcutaneous layer Percentage of wound debrided: 100 Instrument Used: #15 blade Tissue Removed: SLough and devitalized tissue Severity: Fat Layer Exposed Amount of bleeding with debridement: Mild Bleeding Controlled with: Pressure Patient tolerated procedure well - Additional Wound Wound debrided: Right knee Wound Grade/Stage: Stage III Type of Debridement: Excisional debridement Anesthesia Used: 4% Lidocaine Solution Depth: Down to and including healthy tissue, in the subcutaneous layer Percentage of wound debrided: 100 Instrument Used: #15 blade Tissue Removed: Slough and devitalized tissue Severity: Fat Layer Exposed Amount of bleeding with debridement: Mild Bleeding Controlled with: Pressure Patient tolerated procedure: Patient tolerated procedure well Assessment/Plan Active Problems Skin ulcer of right knee with fat layer exposed (Chronic) Skin ulcer of left knee with fat layer exposed (Chronic) Delayed wound healing (Chronic) Smoker (Chronic) 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 (Chronic) Ulcer of right lower extremity with fat layer exposed (Chronic) Ulcer of left lower extremity with fat layer exposed (Chronic) Ulcer of right foot with necrosis of muscle (Chronic) Type 2 diabetes mellitus with diabetic polyneuropathy (Chronic) Localized edema (Chronic) Malnutrition (Chronic) DM2 (diabetes mellitus, type 2) (Chronic) Assessment: Open second and third ray resection secondary to 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 Diabetic neuropathy. Malnutrition suspected. 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 Delayed healing. Gait impairment and fall risk. Other comorbidities, right knee ulcer, tendon exposed (Dr. Gilbert managed), left knee ulcer (Dr. Gilbert managed) Plan: Periwound masceration of both knee. They have being using bandaids. Advised against this. Debbridement done as documented above, procedure was welll tolerated. Continue Alana with adaptic over top. Change daily. Continue increased protein intake and other wound care per Dr. Gruber. Follow up in 1 week. This note was generated with [employer] dictation software. It may contain incorrect words, spelling, and punctuation that were not noted in checking the note before signing.
--- NOTE | 2018-09-21 13:11 | PCM.WC.PN ---
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 Code(s): L97.923 - Non-pressure chronic ulcer of unspecified part of left lower leg with necrosis of muscle (3) Ulcer of right lower extremity with fat layer exposed Status: Chronic Code(s): L97.912 - Non-pressure chronic ulcer of unspecified part of right lower leg with fat layer exposed (4) Ulcer of right foot with necrosis of muscle Status: Chronic Code(s): L97.513 - Non-pressure chronic ulcer of other part of right foot with necrosis of muscle (5) Delayed wound healing Status: Chronic Code(s): T14.8XXD - Other injury of unspecified body region, subsequent encounter (6) Smoker Status: Chronic Code(s): F17.200 - Nicotine dependence, unspecified, uncomplicated (7) Vasculitis Status: Chronic Code(s): I77.6 - Arteritis, unspecified (8) Type 2 diabetes mellitus with diabetic polyneuropathy Status: Chronic Code(s): E11.42 - Type 2 diabetes mellitus with diabetic polyneuropathy (9) Localized edema Status: Chronic Code(s): R60.0 - Localized edema (10) Malnutrition Status: Chronic Code(s): E46 - Unspecified protein-calorie malnutrition Type of Wound Chief Complaint: right and left Leg ulcers and right foot ulcer History of Wound: Mr. Arguello is a 63-year-old male with multiple comorbidities follows up for delayed healing ulcers to the right foot as well as bilateral legs. It is noted he previously had widespread debridements and fasciotomies performed to bilateral lower extremities secondary to life-threatening and limb threatening infection; this was previously performed at [facility]. He continues to follow with Dr. Gilbert for her knee ulcers, and I saw him today for his other ulcer sites. He has been applying Santyl to both the wounds, Aquacel to leg ulcers, and wound VAC to right foot defect with quality improvement. He denies chills, fever or otherwise feeling of unwell. He presents today with his . He continues to smoke a half a pack of cigarettes daily. He is considering the recommended surgical debridement and application of advanced wound care product in the operating room and has several questions today. He is scheduled to see Dr. Sparks this upcoming Wednesday and he has a tentative surgical opportunity next Wednesday, September 30, 2018. Progress of Wound: Stable. - Physical Exam Vital Signs Temp Pulse Resp BP 98.4 F 113 H 18 123/79 H 09/21/18 11:22 09/21/18 11:22 09/21/18 11:22 09/21/18 11:22 General: Alert, Oriented x3, Cooperative Extremities: No cyanosis, Capillary Refill Less than 3 Seconds, No Calf Tenderness - Negative Errol and Lobato sign bilateral, Diminished Peripheral Pulses, Edema Skin: Ulcer/ Wound - No purulence, erythema, streaking, odor, or heat times infection. There is exposed tendon that is devitalized necrotic and unhealthy to the right medial ankle and foot. There is no exposed bone to bilateral lower extremities. The skin is erythematous and atrophic and consistent with a vasculitis type presentation. Wound Measurements and Assessment WC - Nurse 1 - General Ulcer Measurement Start: 08/24/18 12:02 Freq: Status: Active Protocol: Activity Type Activity Date Activity User E-Sign Co-Sign Detail Recorded Client Recorded Date Recorded By Document 09/21/18 11:22 [id number] 09/21/18 11:47 09/21/18 11:22 Wound Center Nurse 1 [Ulcer Assessment] 9.L knee -Combined with other wound No -Current Size (cm) - Length 0.4 -Current Size (cm) - Width 0.7 -Current Size (cm) - Depth 0.1 -Total Square Cm 0.28 -Photo Taken No -Epithelialization None Present -Tunneling No -Undermining/Tunneling No -Circular Undermining No -Exudate Amt Small (1-33%) -Exudate Type Serosanguineous -Granulation Amt Small (1-33%) -Granulation Quality Pale [place] -Slough/Fibrin Yes -Necrosis Amt Medium (34-66%) -Necrotic Tissue Type Adherent Slough -Texture (Lisa-wound Skin Appearance) Assessed Scarring -Moisture (Lisa-wound Skin Appearance Assessed ) Dry/Scaly -Color (Lisa-wound Skin Appearance) No Abnormality Assessed -Temperature (Lisa-wound Skin No Abnormality Appearance) (Pt Warm) -Tenderness on Palpation (Lisa-wound No Skin Appearance) -Ulcer Cleansing Rinsed/ Irrigated with Saline -Foul Odor after Cleansing No -Anesthetic Used 4% Lidocaine Solution #8 r Knee -Combined with other wound No -Current Size (cm) - Length 1.3 -Current Size (cm) - Width 1.5 -Current Size (cm) - Depth 0.4 -Total Square Cm 1.95 -Photo Taken No -Epithelialization None Present -Tunneling No -Undermining/Tunneling No -Circular Undermining No -Exudate Amt Medium (34-66%) -Exudate Type Serosanguineous -Wound Margin Distinct, Outline Attached -Granulation Amt Small (1-33%) -Granulation Quality [place] -Slough/Fibrin Yes -Necrosis Amt Medium (34-66%) -Necrotic Tissue Type Adherent Slough -Texture (Lisa-wound Skin Appearance) Assessed Scarring -Moisture (Lisa-wound Skin Appearance Assessed ) Maceration -Color (Lisa-wound Skin Appearance) No Abnormality Assessed -Temperature (Lisa-wound Skin No Abnormality Appearance) (Pt Warm) -Tenderness on Palpation (Lisa-wound No Skin Appearance) -Ulcer Cleansing Rinsed/ Irrigated with Saline -Foul Odor after Cleansing No -Anesthetic Used 4% Lidocaine Solution #7 L Lat LE Cluster -Combined with other wound No -Current Size (cm) - Length 8.2 -Current Size (cm) - Width 9.0 -Current Size (cm) - Depth 0.1 -Total Square Cm 73.80 -Photo Taken No -Epithelialization None Present -Tunneling No -Undermining/Tunneling No -Circular Undermining No -Exudate Amt Small (1-33%) -Exudate Type Serosanguineous -Wound Margin Distinct, Outline Attached -Granulation Amt Medium (34-66%) -Granulation Quality [place] -Slough/Fibrin Yes -Necrosis Amt Medium (34-66%) -Necrotic Tissue Type Adherent Slough -Texture (Lisa-wound Skin Appearance) Assessed Scarring -Moisture (Lisa-wound Skin Appearance Assessed ) Dry/Scaly -Color (Lisa-wound Skin Appearance) No Abnormality Assessed -Temperature (Lisa-wound Skin No Abnormality Appearance) (Pt Warm) -Tenderness on Palpation (Lisa-wound No Skin Appearance) -Foul Odor after Cleansing No -Anesthetic Used 4% Lidocaine Solution #6 L Post -Combined with other wound No -Current Size (cm) - Length 21.3 -Current Size (cm) - Width 3.3 -Current Size (cm) - Depth 0.1 -Total Square Cm 70.29 -Photo Taken No -Epithelialization None Present -Tunneling No -Undermining/Tunneling No -Circular Undermining No -Exudate Amt Small (1-33%) -Exudate Type Serosanguineous -Wound Margin Distinct, Outline Attached -Granulation Amt Medium (34-66%) -Granulation Quality Pale -Slough/Fibrin Yes -Necrosis Amt Medium (34-66%) -Necrotic Tissue Type Adherent Slough -Texture (Lisa-wound Skin Appearance) Not Assessed Scarring -Moisture (Lisa-wound Skin Appearance Assessed ) Dry/Scaly -Color (Lisa-wound Skin Appearance) No Abnormality Assessed -Temperature (Lisa-wound Skin No Abnormality Appearance) (Pt Warm) -Tenderness on Palpation (Lisa-wound No Skin Appearance) -Ulcer Cleansing Rinsed/ Irrigated with Saline -Foul Odor after Cleansing No -Anesthetic Used 4% Lidocaine Solution #5 R Lat LE -Combined with other wound No -Current Size (cm) - Length 4.4 -Current Size (cm) - Width 2.3 -Current Size (cm) - Depth 0.1 -Total Square Cm 10.12 -Photo Taken No -Epithelialization None Present -Tunneling No -Undermining/Tunneling No -Circular Undermining No -Exudate Amt Medium (34-66%) -Exudate Type Serosanguineous -Wound Margin Distinct, Outline Attached -Granulation Amt Medium (34-66%) -Granulation Quality Pale [place] -Slough/Fibrin Yes -Necrosis Amt Small (1-33%) -Necrotic Tissue Type Adherent Slough -Texture (Lisa-wound Skin Appearance) Assessed Scarring -Moisture (Lisa-wound Skin Appearance Assessed ) Dry/Scaly -Color (Lisa-wound Skin Appearance) No Abnormality Assessed -Temperature (Lisa-wound Skin No Abnormality Appearance) (Pt Warm) -Tenderness on Palpation (Lisa-wound No Skin Appearance) -Ulcer Cleansing Rinsed/ Irrigated with Saline -Foul Odor after Cleansing No -Anesthetic Used 4% Lidocaine Solution #4 R post LE -Combined with other wound No -Current Size (cm) - Length 1.4 -Current Size (cm) - Width 1.3 -Current Size (cm) - Depth 0.2 -Total Square Cm 1.82 -Photo Taken No -Epithelialization None Present -Tunneling No -Undermining/Tunneling No -Circular Undermining No -Exudate Amt Medium (34-66%) -Exudate Type Serosanguineous -Wound Margin Distinct, Outline Attached -Granulation Amt Small (1-33%) -Granulation Quality [place] -Slough/Fibrin Yes -Necrosis Amt Medium (34-66%) -Necrotic Tissue Type Adherent Slough -Texture (Lisa-wound Skin Appearance) Assessed Scarring -Moisture (Lisa-wound Skin Appearance Assessed ) Dry/Scaly -Color (Lisa-wound Skin Appearance) No Abnormality Assessed -Temperature (Lisa-wound Skin No Abnormality Appearance) (Pt Warm) -Tenderness on Palpation (Lisa-wound No Skin Appearance) -Ulcer Cleansing Rinsed/ Irrigated with Saline -Foul Odor after Cleansing No -Anesthetic Used 4% Lidocaine Solution #3 R Med LE -Combined with other wound No -Current Size (cm) - Length 3.5 -Current Size (cm) - Width 1.9 -Current Size (cm) - Depth 0.5 -Total Square Cm 6.65 -Photo Taken No -Epithelialization None Present -Tunneling No -Undermining/Tunneling No -Circular Undermining No -Exudate Amt Medium (34-66%) -Exudate Type Serosanguineous -Wound Margin Distinct, Outline Attached -Granulation Amt Medium (34-66%) -Granulation Quality [place] -Slough/Fibrin Yes -Necrosis Amt Medium (34-66%) -Necrotic Tissue Type Adherent Slough -Texture (Lisa-wound Skin Appearance) Assessed Scarring -Moisture (Lisa-wound Skin Appearance Assessed ) Dry/Scaly -Color (Lisa-wound Skin Appearance) No Abnormality Assessed -Temperature (Lisa-wound Skin No Abnormality Appearance) (Pt Warm) -Tenderness on Palpation (Lisa-wound No Skin Appearance) -Ulcer Cleansing Rinsed/ Irrigated with Saline -Foul Odor after Cleansing No -Anesthetic Used 4% Lidocaine Solution #2 R [place] Cluster -Combined with other wound No -Current Size (cm) - Length 16.1 -Current Size (cm) - Width 4.5 -Current Size (cm) - Depth 0.2 -Total Square Cm 72.45 -Photo Taken No -Epithelialization None Present -Tunneling No -Undermining/Tunneling No -Circular Undermining No -Exudate Amt Medium (34-66%) -Exudate Type Serosanguineous -Wound Margin Distinct, Outline Attached -Granulation Amt Medium (34-66%) -Granulation Quality Pale [place] -Slough/Fibrin No -Necrosis Amt Medium (34-66%) -Necrotic Tissue Type Adherent Slough -Texture (Lisa-wound Skin Appearance) Not Assessed Scarring -Moisture (Lisa-wound Skin Appearance Assessed ) Maceration -Color (Lisa-wound Skin Appearance) No Abnormality Assessed -Temperature (Lisa-wound Skin No Abnormality Appearance) (Pt Warm) -Tenderness on Palpation (Lisa-wound No Skin Appearance) -Foul Odor after Cleansing No -Anesthetic Used 4% Lidocaine Solution #1 R 2nd toe amp/Arch/ Med Ankle -Current Size (cm) - Length 30.6 -Current Size (cm) - Width 3.6 -Current Size (cm) - Depth 1.3 -Total Square Cm 110.16 -Photo Taken No -Epithelialization None Present -Tunneling No -Undermining/Tunneling No -Circular Undermining No -Exudate Amt Medium (34-66%) -Exudate Type Serosanguineous -Wound Margin Thickened -Granulation Amt Large (67-100%) -Granulation Quality Red -Slough/Fibrin Yes -Necrosis Amt Medium (34-66%) -Necrotic Tissue Type Adherent Slough -Texture (Lisa-wound Skin Appearance) Assessed Scarring -Moisture (Lisa-wound Skin Appearance Assessed ) Maceration -Color (Lisa-wound Skin Appearance) No Abnormality Assessed -Temperature (Lisa-wound Skin No Abnormality Appearance) (Pt Warm) -Tenderness on Palpation (Lisa-wound No Skin Appearance) -Foul Odor after Cleansing No -Anesthetic Used 4% Lidocaine Solution [Edema Assessment] -Right Calf (cm) 35.6 -Right Ankle (cm) 23.6 -Left Calf (cm) 34 -Left Ankle (cm) 22 WC - Nurse 2 - General Ulcer CM Notes Start: 08/24/18 12:02 Freq: Status: Active Protocol: Activity Type Activity Date Activity User E-Sign Co-Sign Detail Recorded Client Recorded Date Recorded By Document 09/21/18 12:03 TM [id number] 09/21/18 12:08 TM Document 09/21/18 12:12 MW [id number] 09/21/18 12:14 MW 09/21/18 09/21/18 12:03 12:12 Wound Center Nurse 2 [Procedure/Treatment] 9.L knee -Time 12:12 -Correct Patient Yes -Correct Side, Site, Position Yes -Correct Procedure Yes -Procedure Performed Yes -Type of Procedure Debridement -Clinical Debridement Subcutaneous -Post Debridement Size (cm) - Length 0.2 -Post Debridement Size (cm) - Width 0.5 -Post Debridement Size (cm) - Depth 0.1 -Total Square Cm 0.10 -Wound/Ulcer Outcome Not Healed -Ulcer Cleansing Rinsed/ Irrigated with Saline -Foul Odor after Cleansing No -Bioengineered Tissue No -Bleeding Controlled with Pressure -Treatment Response Procedure Tolerated Well #8 r Knee -Time 12:12 -Correct Patient Yes -Correct Side, Site, Position Yes -Correct Procedure Yes -Procedure Performed Yes -Type of Procedure Debridement -Clinical Debridement Subcutaneous -Post Debridement Size (cm) - Length 1.0 -Post Debridement Size (cm) - Width 1.5 -Post Debridement Size (cm) - Depth 0.2 -Total Square Cm 1.50 -Wound/Ulcer Outcome Not Healed -Ulcer Cleansing Rinsed/ Irrigated with Saline -Foul Odor after Cleansing No -Bioengineered Tissue No -Bleeding Controlled with Pressure -Treatment Response Procedure Tolerated Well #7 L Lat LE Cluster -Time 12:03 -Correct Patient Yes -Correct Side, Site, Position Yes -Correct Procedure Yes -Procedure Performed Yes -Post Debridement Size (cm) - Length 0 -Post Debridement Size (cm) - Width 0 -Post Debridement Size (cm) - Depth 0 -Total Square Cm 0 -Wound/Ulcer Outcome Healed- Epithelialized -Ulcer Cleansing Rinsed/ Irrigated with Saline -Foul Odor after Cleansing No -Bioengineered Tissue No -Topical Lidocaine (%) 4 -Bleeding Controlled with NA -Treatment Response Procedure Tolerated Well #6 L Post -Time 12:04 -Correct Patient Yes -Correct Side, Site, Position Yes -Correct Procedure Yes -Procedure Performed Yes -Type of Procedure Debridement -Clinical Debridement Subcutaneous -Post Debridement Size (cm) - Length 21.4 -Post Debridement Size (cm) - Width 3.4 -Post Debridement Size (cm) - Depth 0.1 -Total Square Cm 72.76 -Wound/Ulcer Outcome Not Healed -Ulcer Cleansing Rinsed/ Irrigated with Saline -Foul Odor after Cleansing No -Bioengineered Tissue No -Topical Lidocaine (%) 4 -Bleeding Controlled with Pressure -Treatment Response Procedure Tolerated Well #5 R Lat LE -Time 12:04 -Correct Patient Yes -Correct Side, Site, Position Yes -Correct Procedure Yes -Procedure Performed Yes -Type of Procedure Debridement -Clinical Debridement Subcutaneous -Post Debridement Size (cm) - Length 4.5 -Post Debridement Size (cm) - Width 2.4 -Post Debridement Size (cm) - Depth 0.1 -Total Square Cm 10.80 -Wound/Ulcer Outcome Not Healed -Ulcer Cleansing Rinsed/ Irrigated with Saline -Foul Odor after Cleansing No -Bioengineered Tissue No -Topical Lidocaine (%) 4 -Bleeding Controlled with Pressure -Treatment Response Procedure Tolerated Well #4 R post LE -Time 12:05 -Correct Patient Yes -Correct Side, Site, Position Yes -Correct Procedure Yes -Procedure Performed Yes -Type of Procedure Debridement -Clinical Debridement Subcutaneous -Post Debridement Size (cm) - Length 1.5 -Post Debridement Size (cm) - Width 1.4 -Post Debridement Size (cm) - Depth 0.2 -Total Square Cm 2.10 -Wound/Ulcer Outcome Not Healed -Ulcer Cleansing Rinsed/ Irrigated with Saline -Foul Odor after Cleansing No -Bioengineered Tissue No -Topical Lidocaine (%) 4 -Bleeding Controlled with Pressure -Treatment Response Procedure Tolerated Well #3 R Med LE -Time 12:05 -Correct Patient Yes -Correct Side, Site, Position Yes -Correct Procedure Yes -Procedure Performed Yes -Type of Procedure Debridement -Clinical Debridement Subcutaneous -Post Debridement Size (cm) - Length 3.6 -Post Debridement Size (cm) - Width 2.0 -Post Debridement Size (cm) - Depth 0.5 -Total Square Cm 7.20 -Wound/Ulcer Outcome Not Healed -Ulcer Cleansing Rinsed/ Irrigated with Saline -Foul Odor after Cleansing No -Bioengineered Tissue No -Topical Lidocaine (%) 4 -Bleeding Controlled with Pressure -Treatment Response Procedure Tolerated Well #2 R [place] Cluster -Time 12:06 -Correct Patient Yes -Correct Side, Site, Position Yes -Correct Procedure Yes -Procedure Performed Yes -Type of Procedure Debridement -Clinical Debridement Subcutaneous -Post Debridement Size (cm) - Length 16.2 -Post Debridement Size (cm) - Width 4.6 -Post Debridement Size (cm) - Depth 0.2 -Total Square Cm 74.52 -Wound/Ulcer Outcome Not Healed -Ulcer Cleansing Rinsed/ Irrigated with Saline -Foul Odor after Cleansing No -Bioengineered Tissue No -Topical Lidocaine (%) 4 -Bleeding Controlled with Pressure -Treatment Response Procedure Tolerated Well #1 R 2nd toe amp/Arch/ Med Ankle -Time 12:06 -Correct Patient Yes -Correct Side, Site, Position Yes -Correct Procedure Yes -Procedure Performed Yes -Type of Procedure Debridement -Clinical Debridement Muscle -Post Debridement Size (cm) - Length 30.7 -Post Debridement Size (cm) - Width 3.7 -Post Debridement Size (cm) - Depth 1.3 -Total Square Cm 113.59 -Wound/Ulcer Outcome Not Healed -Ulcer Cleansing Rinsed/ Irrigated with Saline -Foul Odor after Cleansing No -Bioengineered Tissue No -Topical Lidocaine (%) 4 -Bleeding Controlled with Pressure -Treatment Response Procedure Tolerated Well [See Physician Procedure note for Specifics] Pain Scale: 0-10 Numeric [Pain] -Is Patient Pain Free? Yes Yes Musculoskeletal: No Tenderness to Palpation of Joints or Extremities, Muscle Wasting, - - Open second and third ray resection of right foot Neurological: - - Lack of normal epicritic sensation bilateral lower extremities consistent with neuropathy Psych/Mental Status: Normal Affect, Appropriate Debridement Note Post-Debridement Measurements/Treatment WC - Nurse 2 - General Ulcer CM Notes Start: 08/24/18 12:02 Freq: Status: Active Protocol: Activity Type Activity Date Activity User E-Sign Co-Sign Detail Recorded Client Recorded Date Recorded By Document 08/24/18 12:18 MW [id number] 08/24/18 12:24 MW Document 09/07/18 09:37 MW [id number] 09/07/18 09:41 MW Document 09/07/18 10:12 TM [id number] 09/07/18 10:17 TM Document 09/14/18 11:38 JF [id number] 09/14/18 11:41 JF Document 09/14/18 11:43 JF [id number] 09/14/18 11:50 JF Document 09/21/18 12:03 TM [id number] 09/21/18 12:08 TM Document 09/21/18 12:12 MW [id number] 09/21/18 12:14 MW 08/24/18 09/07/18 09/07/18 12:18 09:37 10:12 Wound Center Nurse 2 9.L knee -Time 12:19 09:38 10:12 -Correct Patient Yes Yes Yes -Correct Side, Site, Position Yes Yes Yes -Correct Procedure Yes Yes Yes -Procedure Performed Yes Yes Yes -Type of Procedure Debridement Debridement -Clinical Debridement Subcutaneous Subcutaneous -Post Debridement Size (cm) - Length 0.3 0.4 -Post Debridement Size (cm) - Width 1.2 1.0 -Post Debridement Size (cm) - Depth 0.1 0.2 -Total Square Cm 0.36 0.40 -Wound/Ulcer Outcome Not Healed Not Healed Not Healed -Ulcer Cleansing Rinsed/ Rinsed/ Rinsed/ Irrigated with Irrigated with Irrigated with Saline Saline Saline -Foul Odor after Cleansing No No No -Bioengineered Tissue No No No -Topical Lidocaine (%) 4 -Bleeding Controlled with Pressure Pressure Pressure -Treatment Response Procedure Procedure Tolerated Well Tolerated Well #8 r Knee -Time 12:19 09:38 10:12 -Correct Patient Yes Yes Yes -Correct Side, Site, Position Yes Yes Yes -Correct Procedure Yes Yes Yes -Procedure Performed Yes Yes Yes -Type of Procedure Debridement Debridement -Clinical Debridement Subcutaneous Subcutaneous -Post Debridement Size (cm) - Length 1.3 1.2 -Post Debridement Size (cm) - Width 2.0 1.7 -Post Debridement Size (cm) - Depth 0.3 0.3 -Total Square Cm 2.60 2.04 -Wound/Ulcer Outcome Not Healed Not Healed Not Healed -Ulcer Cleansing Rinsed/ Rinsed/ Rinsed/ Irrigated with Irrigated with Irrigated with Saline Saline Saline -Foul Odor after Cleansing No No No -Bioengineered Tissue No No No -Bleeding Controlled with Pressure Pressure NA -Other circular undermining @10 , 1.4cm -Treatment Response Procedure Procedure Tolerated Well Tolerated Well #7 L Lat LE Cluster -Time 10:13 -Correct Patient Yes -Correct Side, Site, Position Yes -Correct Procedure Yes -Procedure Performed Yes -Type of Procedure Debridement -Clinical Debridement Subcutaneous -Post Debridement Size (cm) - Length 7.7 -Post Debridement Size (cm) - Width 2.9 -Post Debridement Size (cm) - Depth 0.1 -Total Square Cm 22.33 -Wound/Ulcer Outcome Not Healed -Ulcer Cleansing Rinsed/ Irrigated with Saline -Foul Odor after Cleansing No -Bioengineered Tissue No -Topical Lidocaine (%) 4 -Bleeding Controlled with Pressure -Treatment Response Procedure Tolerated Well #6 L Post -Time 10:13 -Correct Patient Yes -Correct Side, Site, Position Yes -Correct Procedure Yes -Procedure Performed Yes -Type of Procedure Debridement -Clinical Debridement Muscle -Post Debridement Size (cm) - Length 7.3 -Post Debridement Size (cm) - Width 22.7 -Post Debridement Size (cm) - Depth 0.2 -Total Square Cm 165.71 -Wound/Ulcer Outcome Not Healed -Ulcer Cleansing Rinsed/ Irrigated with Saline -Foul Odor after Cleansing No -Bioengineered Tissue No -Topical Lidocaine (%) 4 -Bleeding Controlled with Pressure -Treatment Response Procedure Tolerated Well #5 R Lat LE -Time 10:14 -Correct Patient Yes -Correct Side, Site, Position Yes -Correct Procedure Yes -Procedure Performed Yes -Type of Procedure Debridement -Clinical Debridement Subcutaneous -Post Debridement Size (cm) - Length 4.7 -Post Debridement Size (cm) - Width 2.4 -Post Debridement Size (cm) - Depth 0.1 -Total Square Cm 11.28 -Wound/Ulcer Outcome Not Healed -Ulcer Cleansing Rinsed/ Irrigated with Saline -Foul Odor after Cleansing No -Bioengineered Tissue No -Topical Lidocaine (%) 4 -Bleeding Controlled with Pressure -Treatment Response Procedure Tolerated Well #4 R post LE -Time 10:15 -Correct Patient Yes -Correct Side, Site, Position Yes -Correct Procedure Yes -Procedure Performed Yes -Type of Procedure Debridement -Clinical Debridement Subcutaneous -Post Debridement Size (cm) - Length 2.1 -Post Debridement Size (cm) - Width 1.3 -Post Debridement Size (cm) - Depth 0.1 -Total Square Cm 2.73 -Wound/Ulcer Outcome Not Healed -Ulcer Cleansing Rinsed/ Irrigated with Saline -Foul Odor after Cleansing No -Bioengineered Tissue No -Topical Lidocaine (%) 4 -Bleeding Controlled with Pressure -Treatment Response Procedure Tolerated Well #3 R Med LE -Time 10:15 -Correct Patient Yes -Correct Side, Site, Position Yes -Correct Procedure Yes -Procedure Performed Yes -Type of Procedure Debridement -Clinical Debridement Subcutaneous -Post Debridement Size (cm) - Length 4.5 -Post Debridement Size (cm) - Width 0.9 -Post Debridement Size (cm) - Depth 0.3 -Total Square Cm 4.05 -Wound/Ulcer Outcome Not Healed -Ulcer Cleansing Rinsed/ Irrigated with Saline -Foul Odor after Cleansing No -Bioengineered Tissue No -Topical Lidocaine (%) 4 -Bleeding Controlled with Pressure -Treatment Response Procedure Tolerated Well #2 R [place] Cluster -Time 10:15 -Correct Patient Yes -Correct Side, Site, Position Yes -Correct Procedure Yes -Procedure Performed Yes -Type of Procedure Debridement -Clinical Debridement Subcutaneous -Post Debridement Size (cm) - Length 16.1 -Post Debridement Size (cm) - Width 4.6 -Post Debridement Size (cm) - Depth 0.2 -Total Square Cm 74.06 -Wound/Ulcer Outcome Not Healed -Ulcer Cleansing Rinsed/ Irrigated with Saline -Foul Odor after Cleansing No -Bioengineered Tissue No -Topical Lidocaine (%) 4 -Bleeding Controlled with Pressure -Treatment Response Procedure Tolerated Well #1 R 2nd toe amp/Arch/ Med Ankle -Time 10:16 -Correct Patient Yes -Correct Side, Site, Position Yes -Correct Procedure Yes -Procedure Performed Yes -Type of Procedure Debridement -Clinical Debridement Muscle -Post Debridement Size (cm) - Length 33.4 -Post Debridement Size (cm) - Width 4.1 -Post Debridement Size (cm) - Depth 2.2 -Total Square Cm 136.94 -Wound/Ulcer Outcome Not Healed -Ulcer Cleansing Rinsed/ Irrigated with Saline -Foul Odor after Cleansing No -Bioengineered Tissue No -Topical Lidocaine (%) 4 -Bleeding Controlled with Pressure -Treatment Response Procedure Tolerated Well Pain Scale: 0-10 Numeric Is Patient Pain Free? Yes 09/14/18 09/14/18 09/21/18 11:38 11:43 12:03 Wound Center Nurse 2 9.L knee -Time 11:43 -Correct Patient No Yes -Correct Side, Site, Position No Yes -Correct Procedure No Yes -Procedure Performed No Yes -Type of Procedure Debridement -Clinical Debridement Subcutaneous -Post Debridement Size (cm) - Length 0.3 -Post Debridement Size (cm) - Width 0.7 -Post Debridement Size (cm) - Depth 0.1 -Total Square Cm 0.21 -Wound/Ulcer Outcome Not Healed -Ulcer Cleansing Rinsed/ Irrigated with Saline -Foul Odor after Cleansing No -Bioengineered Tissue No -Topical Lidocaine (%) -Bleeding Controlled with Pressure -Treatment Response Procedure Tolerated Well #8 r Knee -Time 11:43 -Correct Patient No Yes -Correct Side, Site, Position No Yes -Correct Procedure No Yes -Procedure Performed No Yes -Type of Procedure Debridement -Clinical Debridement Subcutaneous -Post Debridement Size (cm) - Length 1.0 -Post Debridement Size (cm) - Width 1.9 -Post Debridement Size (cm) - Depth 0.3 -Total Square Cm 1.90 -Wound/Ulcer Outcome Not Healed -Ulcer Cleansing Rinsed/ Irrigated with Saline -Foul Odor after Cleansing No -Bioengineered Tissue No -Bleeding Controlled with Pressure -Other -Treatment Response Procedure Tolerated Well #7 L Lat LE Cluster -Time 11:38 12:03 -Correct Patient Yes Yes -Correct Side, Site, Position Yes Yes -Correct Procedure Yes Yes -Procedure Performed Yes Yes -Type of Procedure Debridement -Clinical Debridement Subcutaneous -Post Debridement Size (cm) - Length 7 0 -Post Debridement Size (cm) - Width 2.6 0 -Post Debridement Size (cm) - Depth 0.2 0 -Total Square Cm 18.2 0 -Wound/Ulcer Outcome Not Healed Healed- Epithelialized -Ulcer Cleansing Rinsed/ Rinsed/ Irrigated with Irrigated with Saline Saline -Foul Odor after Cleansing No No -Bioengineered Tissue No No -Topical Lidocaine (%) 4 -Bleeding Controlled with Pressure NA -Treatment Response Procedure Procedure Tolerated Well Tolerated Well #6 L Post -Time 11:39 12:04 -Correct Patient Yes Yes -Correct Side, Site, Position Yes Yes -Correct Procedure Yes Yes -Procedure Performed Yes Yes -Type of Procedure Debridement Debridement -Clinical Debridement Subcutaneous Subcutaneous -Post Debridement Size (cm) - Length 21.1 21.4 -Post Debridement Size (cm) - Width 3 3.4 -Post Debridement Size (cm) - Depth 0.1 0.1 -Total Square Cm 63.3 72.76 -Wound/Ulcer Outcome Not Healed Not Healed -Ulcer Cleansing Rinsed/ Rinsed/ Irrigated with Irrigated with Saline Saline -Foul Odor after Cleansing No No -Bioengineered Tissue No No -Topical Lidocaine (%) 4 -Bleeding Controlled with Pressure Pressure -Treatment Response Procedure Procedure Tolerated Well Tolerated Well #5 R Lat LE -Time 11:39 12:04 -Correct Patient Yes Yes -Correct Side, Site, Position Yes Yes -Correct Procedure Yes Yes -Procedure Performed Yes Yes -Type of Procedure Debridement Debridement -Clinical Debridement Subcutaneous Subcutaneous -Post Debridement Size (cm) - Length 3.5 4.5 -Post Debridement Size (cm) - Width 3 2.4 -Post Debridement Size (cm) - Depth 0.1 0.1 -Total Square Cm 10.5 10.80 -Wound/Ulcer Outcome Not Healed Not Healed -Ulcer Cleansing Rinsed/ Rinsed/ Irrigated with Irrigated with Saline Saline -Foul Odor after Cleansing No No -Bioengineered Tissue No No -Topical Lidocaine (%) 4 -Bleeding Controlled with Pressure Pressure -Treatment Response Procedure Procedure Tolerated Well Tolerated Well #4 R post LE -Time 11:39 12:05 -Correct Patient Yes Yes -Correct Side, Site, Position Yes Yes -Correct Procedure Yes Yes -Procedure Performed Yes Yes -Type of Procedure Debridement Debridement -Clinical Debridement Subcutaneous Subcutaneous -Post Debridement Size (cm) - Length 1.3 1.5 -Post Debridement Size (cm) - Width 1 1.4 -Post Debridement Size (cm) - Depth 0.2 0.2 -Total Square Cm 1.3 2.10 -Wound/Ulcer Outcome Not Healed Not Healed -Ulcer Cleansing Rinsed/ Rinsed/ Irrigated with Irrigated with Saline Saline -Foul Odor after Cleansing No No -Bioengineered Tissue No No -Topical Lidocaine (%) 4 -Bleeding Controlled with Pressure Pressure -Treatment Response Procedure Procedure Tolerated Well Tolerated Well #3 R Med LE -Time 11:40 12:05 -Correct Patient Yes Yes -Correct Side, Site, Position Yes Yes -Correct Procedure Yes Yes -Procedure Performed Yes Yes -Type of Procedure Debridement Debridement -Clinical Debridement Subcutaneous Subcutaneous -Post Debridement Size (cm) - Length 3.8 3.6 -Post Debridement Size (cm) - Width 1.6 2.0 -Post Debridement Size (cm) - Depth 0.3 0.5 -Total Square Cm 6.08 7.20 -Wound/Ulcer Outcome Not Healed Not Healed -Ulcer Cleansing Rinsed/ Rinsed/ Irrigated with Irrigated with Saline Saline -Foul Odor after Cleansing No No -Bioengineered Tissue No No -Topical Lidocaine (%) 4 -Bleeding Controlled with Pressure Pressure -Treatment Response Procedure Procedure Tolerated Well Tolerated Well #2 R [place] Cluster -Time 11:40 12:06 -Correct Patient Yes Yes -Correct Side, Site, Position Yes Yes -Correct Procedure Yes Yes -Procedure Performed Yes Yes -Type of Procedure Debridement Debridement -Clinical Debridement Subcutaneous Subcutaneous -Post Debridement Size (cm) - Length 15 16.2 -Post Debridement Size (cm) - Width 5.1 4.6 -Post Debridement Size (cm) - Depth 0.1 0.2 -Total Square Cm 76.5 74.52 -Wound/Ulcer Outcome Not Healed Not Healed -Ulcer Cleansing Rinsed/ Rinsed/ Irrigated with Irrigated with Saline Saline -Foul Odor after Cleansing No No -Bioengineered Tissue No No -Topical Lidocaine (%) 4 -Bleeding Controlled with Pressure Pressure -Treatment Response Procedure Procedure Tolerated Well Tolerated Well #1 R 2nd toe amp/Arch/ Med Ankle -Time 11:41 12:06 -Correct Patient Yes Yes -Correct Side, Site, Position Yes Yes -Correct Procedure Yes Yes -Procedure Performed Yes Yes -Type of Procedure Debridement Debridement -Clinical Debridement Subcutaneous Muscle -Post Debridement Size (cm) - Length 31.1 30.7 -Post Debridement Size (cm) - Width 4.5 3.7 -Post Debridement Size (cm) - Depth 0.1 1.3 -Total Square Cm 139.95 113.59 -Wound/Ulcer Outcome Not Healed Not Healed -Ulcer Cleansing Rinsed/ Rinsed/ Irrigated with Irrigated with Saline Saline -Foul Odor after Cleansing No No -Bioengineered Tissue No No -Topical Lidocaine (%) 4 -Bleeding Controlled with Pressure Pressure -Treatment Response Procedure Procedure Tolerated Well Tolerated Well Pain Scale: 0-10 Numeric Is Patient Pain Free? Yes Yes 09/21/18 12:12 Wound Center Nurse 2 9.L knee -Time 12:12 -Correct Patient Yes -Correct Side, Site, Position Yes -Correct Procedure Yes -Procedure Performed Yes -Type of Procedure Debridement -Clinical Debridement Subcutaneous -Post Debridement Size (cm) - Length 0.2 -Post Debridement Size (cm) - Width 0.5 -Post Debridement Size (cm) - Depth 0.1 -Total Square Cm 0.10 -Wound/Ulcer Outcome Not Healed -Ulcer Cleansing Rinsed/ Irrigated with Saline -Foul Odor after Cleansing No -Bioengineered Tissue No -Topical Lidocaine (%) -Bleeding Controlled with Pressure -Treatment Response Procedure Tolerated Well #8 r Knee -Time 12:12 -Correct Patient Yes -Correct Side, Site, Position Yes -Correct Procedure Yes -Procedure Performed Yes -Type of Procedure Debridement -Clinical Debridement Subcutaneous -Post Debridement Size (cm) - Length 1.0 -Post Debridement Size (cm) - Width 1.5 -Post Debridement Size (cm) - Depth 0.2 -Total Square Cm 1.50 -Wound/Ulcer Outcome Not Healed -Ulcer Cleansing Rinsed/ Irrigated with Saline -Foul Odor after Cleansing No -Bioengineered Tissue No -Bleeding Controlled with Pressure -Other -Treatment Response Procedure Tolerated Well #7 L Lat LE Cluster -Time -Correct Patient -Correct Side, Site, Position -Correct Procedure -Procedure Performed -Type of Procedure -Clinical Debridement -Post Debridement Size (cm) - Length -Post Debridement Size (cm) - Width -Post Debridement Size (cm) - Depth -Total Square Cm -Wound/Ulcer Outcome -Ulcer Cleansing -Foul Odor after Cleansing -Bioengineered Tissue -Topical Lidocaine (%) -Bleeding Controlled with -Treatment Response #6 L Post -Time -Correct Patient -Correct Side, Site, Position -Correct Procedure -Procedure Performed -Type of Procedure -Clinical Debridement -Post Debridement Size (cm) - Length -Post Debridement Size (cm) - Width -Post Debridement Size (cm) - Depth -Total Square Cm -Wound/Ulcer Outcome -Ulcer Cleansing -Foul Odor after Cleansing -Bioengineered Tissue -Topical Lidocaine (%) -Bleeding Controlled with -Treatment Response #5 R Lat LE -Time -Correct Patient -Correct Side, Site, Position -Correct Procedure -Procedure Performed -Type of Procedure -Clinical Debridement -Post Debridement Size (cm) - Length -Post Debridement Size (cm) - Width -Post Debridement Size (cm) - Depth -Total Square Cm -Wound/Ulcer Outcome -Ulcer Cleansing -Foul Odor after Cleansing -Bioengineered Tissue -Topical Lidocaine (%) -Bleeding Controlled with -Treatment Response #4 R post LE -Time -Correct Patient -Correct Side, Site, Position -Correct Procedure -Procedure Performed -Type of Procedure -Clinical Debridement -Post Debridement Size (cm) - Length -Post Debridement Size (cm) - Width -Post Debridement Size (cm) - Depth -Total Square Cm -Wound/Ulcer Outcome -Ulcer Cleansing -Foul Odor after Cleansing -Bioengineered Tissue -Topical Lidocaine (%) -Bleeding Controlled with -Treatment Response #3 R Med LE -Time -Correct Patient -Correct Side, Site, Position -Correct Procedure -Procedure Performed -Type of Procedure -Clinical Debridement -Post Debridement Size (cm) - Length -Post Debridement Size (cm) - Width -Post Debridement Size (cm) - Depth -Total Square Cm -Wound/Ulcer Outcome -Ulcer Cleansing -Foul Odor after Cleansing -Bioengineered Tissue -Topical Lidocaine (%) -Bleeding Controlled with -Treatment Response #2 R [place] Cluster -Time -Correct Patient -Correct Side, Site, Position -Correct Procedure -Procedure Performed -Type of Procedure -Clinical Debridement -Post Debridement Size (cm) - Length -Post Debridement Size (cm) - Width -Post Debridement Size (cm) - Depth -Total Square Cm -Wound/Ulcer Outcome -Ulcer Cleansing -Foul Odor after Cleansing -Bioengineered Tissue -Topical Lidocaine (%) -Bleeding Controlled with -Treatment Response #1 R 2nd toe amp/Arch/ Med Ankle -Time -Correct Patient -Correct Side, Site, Position -Correct Procedure -Procedure Performed -Type of Procedure -Clinical Debridement -Post Debridement Size (cm) - Length -Post Debridement Size (cm) - Width -Post Debridement Size (cm) - Depth -Total Square Cm -Wound/Ulcer Outcome -Ulcer Cleansing -Foul Odor after Cleansing -Bioengineered Tissue -Topical Lidocaine (%) -Bleeding Controlled with -Treatment Response Pain Scale: 0-10 Numeric Is Patient Pain Free? Yes Wound debrided: foot and ankle Laterality: Right Wound Grade/Stage: grade 3 Type of Debridement: Excisional debridement Anesthesia Used: 4% Lidocaine Solution Depth: in the subcutaneous layer, to muscle Percentage of wound debrided: 90 - Subcutaneous tissue, 10 - Devitalized tendon Instrument Used: #15 blade Tissue Removed: fibrous, devitalized subcutaneous and tendon, biofilm, slough Severity: Necrosis of Muscle Amount of bleeding with debridement: Mild Bleeding Controlled with: Pressure Patient tolerated procedure well - Additional Wound Wound debrided: anterior leg Laterality: Right Wound Grade/Stage: grade 1 Type of Debridement: Excisional debridement Anesthesia Used: 4% Lidocaine Solution Depth: in the subcutaneous layer Percentage of wound debrided: 100 Instrument Used: #15 blade Tissue Removed: fibrous, devitalized subcutaneous, biofilm, slough Severity: Fat Layer Exposed Amount of bleeding with debridement: Mild Bleeding Controlled with: Pressure Patient tolerated procedure: Patient tolerated procedure well - Additional Wound Wound debrided: medial leg Laterality: Right Wound Grade/Stage: grade 1 Type of Debridement: Excisional debridement Anesthesia Used: 4% Lidocaine Solution Depth: in the subcutaneous layer Percentage of wound debrided: 100 Instrument Used: #15 blade Tissue Removed: fibrous, devitalized subcutaneous, biofilm, slough Severity: Fat Layer Exposed Amount of bleeding with debridement: Mild Bleeding Controlled with: Pressure Patient tolerated procedure: Patient tolerated procedure well - Additional Wound Wound debrided: lateral leg Laterality: Right Wound Grade/Stage: grade 1 Type of Debridement: Excisional debridement Anesthesia Used: 4% Lidocaine Solution Depth: in the subcutaneous layer Percentage of wound debrided: 100 Instrument Used: #15 blade Tissue Removed: fibrous, devitalized subcutaneous, biofilm, slough Severity: Fat Layer Exposed Amount of bleeding with debridement: Mild Bleeding Controlled with: Pressure Patient tolerated procedure: Patient tolerated procedure well - Additional Wound Wound debrided: posterior leg Laterality: Right Wound Grade/Stage: grade 1 Type of Debridement: Excisional debridement Anesthesia Used: 4% Lidocaine Solution Depth: in the subcutaneous layer Percentage of wound debrided: 100 Instrument Used: #15 blade Tissue Removed: fibrous, devitalized subcutaneous, biofilm, slough Severity: Fat Layer Exposed Amount of bleeding with debridement: Mild Bleeding Controlled with: Pressure Patient tolerated procedure: Patient tolerated procedure well - Additional Wound Wound debrided: posterior leg Laterality: Left Wound Grade/Stage: grade 2 Type of Debridement: Excisional debridement Anesthesia Used: 4% Lidocaine Solution Depth: in the subcutaneous layer Percentage of wound debrided: 100 Instrument Used: #15 blade Tissue Removed: fibrous, devitalized subcutaneous, biofilm, slough Severity: Fat Layer Exposed Amount of bleeding with debridement: Mild Bleeding Controlled with: Pressure Patient tolerated procedure: Patient tolerated procedure well - Additional Wound Wound debrided: lateral leg Laterality: Left Wound Grade/Stage: grade 1 Type of Debridement: Excisional debridement Anesthesia Used: 4% Lidocaine Solution Depth: in the subcutaneous layer Percentage of wound debrided: 100 Instrument Used: #15 blade Tissue Removed: fibrous, devitalized subcutaneous, biofilm, slough Severity: Fat Layer Exposed Amount of bleeding with debridement: Mild Bleeding Controlled with: Pressure Patient tolerated procedure: Patient tolerated procedure well Assessment/Plan Assessment: Open second and third ray resection secondary to 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 Diabetic neuropathy. Malnutrition suspected. 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 Delayed healing. Gait impairment and fall risk. Other comorbidities, right knee ulcer, tendon exposed (Dr. Gilbert managed), left knee ulcer (Dr. Gilbert managed) Plan: I reviewed and discussed his case with the patient and the patient's . Subcutaneous and devitalized tendon debridements were performed as noted in the clinical panel. I Recommended changing the dressings daily with halfway facility staff assistance with santyl to knees (per Dr. Gilbert) and aquacel ag to the leg ulcers, santyl to devitalized tendon zones, and wound vac to the right foot. I also recommend continued wound VAC changes to the right foot that extends to the medial ankle every 3 days. He was reassured no worsening status or local external to today. The ulcer sites have improved quality with granulation tissue. He had 6 weeks of IV antibiotic of Unasyn. Infectious disease was on consult during his last [facility] admission. I recommend he avoids laying directly on his wounds to reduce pressure, and I was concerned about his perfusion to his limbs. He had an arterial Doppler scheduled with Dr. Morgan's staff on August 02, 2018 and overall perfusion was confirmed; additional intervention or workup was not recommended. To continue with nutritional supplementation optimize healing; I recommend Juan. I recommend he sustained from smoking and alcohol activities to optimize healing as well. His workup for vasculitis and underlying autoimmune disorder is also pending. A punch biopsy was sent during his last surgical intervention on June 10 and this demonstrated inflammatory changes without malignancy. He had initial screening labs and so far he has a negative RA titer, HL of the 27, KEVIN, anti-CCP, and rheumatoid factor. Several his antibody screenings were not reportable. I have communicated this workup with his current managing physician at [facility], Dr. Perdomo, to see if additional recommendations or workup is indicated. He is home now. I will further forward this information along to his primary care physician, Dr. Sparks. Hyperbaric oxygen therapy may be considered if he is stable enough. I am concerned about his cardiac output. He understands his goals are infection prevention, pain control, and functional progression. I answered all his questions. Dr. Gilbert continues to manage his bilateral knee ulcers including debridements and traditional wound care plan. I recommend same-day surgery versa jet debridement with application of advanced wound care products including epi cord, amnio fill, and amnio fix product line derived from amniotic cord cells and umbilical cord cells. The benefits, indications, planned procedure, possible benefits risks and anticipated healing time is were discussed. He understands this is a staged procedure and often serial applications are required. He will go for his history and physical and clearance this upcoming 09/23/2018 and his tentative surgery is scheduled for September 30, 2018 at [facility]. Answered all his questions. Additional amputation of the right foot is not planned due to his fairly nonambulatory status. Smoking cessation was discussed in detail again today and compliance is imperative to optimize healing of surgical success. It is also noted he may be hyperbaric oxygen therapy candidate due to his grade 3 nguyen ulcer status. This will be further discussed with him at follow-up section. I reviewed his latest echocardiogram results from May 2018 and he appears to have been ejection fraction of 50%. Further medical workup will be discussed and pursued. I recommend further follow-up at the wound care center 1 week with me, or call sooner if he has any questions.
== END 2018-09-21 23:59 ==
LOC: WC 11:00
PROVIDERS: Family Provider Family Medicine; PCP Family Medicine; Visit Provider Podiatrist
DX: E11.622 Type 2 diabetes mellitus with other skin ulcer (principal); L97.822 Non-pressure chronic ulcer of other part of left lower leg with fat layer exposed; L97.812 Non-pressure chronic ulcer of other part of right lower leg with fat layer exposed; F17.210 Nicotine dependence, cigarettes, uncomplicated; I69.354 Hemiplegia and hemiparesis following cerebral infarction affecting left non-dominant side; E11.42 Type 2 diabetes mellitus with diabetic polyneuropathy; E78.5 Hyperlipidemia, unspecified; I10 Essential (primary) hypertension; Z79.899 Other long term (current) drug therapy; Z79.82 Long term (current) use of aspirin; Z79.4 Long term (current) use of insulin; Z79.01 Long term (current) use of anticoagulants; E11.621 Type 2 diabetes mellitus with foot ulcer; L97.513 Non-pressure chronic ulcer of other part of right foot with necrosis of muscle
CPT/HCPCS: 11042; 11043; 11045; 97605; 97606

== ENCOUNTER 2018-10-19 09:15 | Outpatient (RCR) | payer OTHER, SELFPAY ==
[2018-09-22 01:22] VITALS: BP 123/79; PULSE 113; RESP 18; TEMP 36.9
[2018-09-28 09:16] VITALS: BP 123/80; PULSE 95; RESP 18; TEMP 35.9
--- NOTE | 2018-09-28 10:48 | PCM.WC.PN ---
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 Current Visit: Yes Code(s): L97.923 - Non-pressure chronic ulcer of unspecified part of left lower leg with necrosis of muscle (4) Delayed wound healing Status: Chronic Current Visit: Yes Code(s): T14.8XXD - Other injury of unspecified body region, subsequent encounter (5) Vasculitis Status: Chronic Current Visit: Yes Code(s): I77.6 - Arteritis, unspecified (6) Type 2 diabetes mellitus with diabetic polyneuropathy Status: Chronic Current Visit: Yes Code(s): E11.42 - Type 2 diabetes mellitus with diabetic polyneuropathy (7) Localized edema Status: Chronic Current Visit: Yes Code(s): R60.0 - Localized edema (8) Malnutrition Status: Chronic Current Visit: Yes Code(s): E46 - Unspecified protein-calorie malnutrition Type of Wound Chief Complaint: right and left Leg ulcers and right foot ulcer History of Wound: Mr. Arguello is a 63-year-old male with multiple comorbidities follows up for delayed healing ulcers to the right foot as well as bilateral legs. It is noted he previously had widespread debridements and fasciotomies performed to bilateral lower extremities secondary to life-threatening and limb threatening infection; this was previously performed at [facility]. He continues to follow with Dr. Gilbert for her knee ulcers, and I saw him today for his other ulcer sites. He has been applying Santyl to both the wounds, Aquacel to leg ulcers, and wound VAC to right foot defect with quality improvement. He denies chills, fever or otherwise feeling of unwell. He presents today with his . The scab to the right heel has loosened and this will be further evaluated today. Progress of Wound: Improving. New right heel ulcer - Physical Exam Vital Signs Temp Pulse Resp BP 96.7 F L 95 18 123/80 H 09/28/18 09:16 09/28/18 09:16 18 09:16 09/28/18 09:16 General: Alert, Oriented x3, Cooperative Extremities: No cyanosis, Capillary Refill Less than 3 Seconds, No Calf Tenderness - Negative Errol and [place] sign bilateral, Diminished Peripheral Pulses, Edema Skin: Ulcer/ Wound - No purulence, erythema, streaking, odor, or infection. There is proximal posterior left leg ulcer site tendon exposed with devitalized quality. The peripheral skin is hairless and atrophic. There is no exposed bone bilateral. Wound Measurements and Assessment WC - Nurse 1 - General Ulcer Measurement Start: 09/28/18 09:15 Freq: Status: Active Protocol: Activity Type Activity Date Activity User E-Sign Co-Sign Detail Recorded Client Recorded Date Recorded By Document 09/28/18 09:16 DL [id number] 09/28/18 09:45 DL 09/28/18 09:16 Wound Center Nurse 1 [Ulcer Assessment] 9.L knee -Current Size (cm) - Length 1.2 -Current Size (cm) - Width 1.3 -Current Size (cm) - Depth 0.3 -Total Square Cm 1.56 -Photo Taken No -Exudate Amt Small (1-33%) -Exudate Type Serosanguineous -Wound Margin Thickened -Granulation Amt None Present (0 %) -Necrosis Amt Large (67-100%) -Necrotic Tissue Type Adherent Slough -Structure Exposed N/A -Texture (Lisa-wound Skin Appearance) Scarring -Moisture (Lisa-wound Skin Appearance Dry/Scaly ) -Color (Lisa-wound Skin Appearance) Rubor -Tenderness on Palpation (Lisa-wound No Skin Appearance) -Ulcer Cleansing Wound Cleanser -Foul Odor after Cleansing No -Anesthetic Used 4% Lidocaine Solution #8 r Knee -Current Size (cm) - Length 0.2 -Current Size (cm) - Width 0.5 -Current Size (cm) - Depth 0.1 -Total Square Cm 0.10 -Photo Taken No -Exudate Amt None Present (0 %) -Wound Margin Thickened -Granulation Amt None Present (0 %) -Necrosis Amt Small (1-33%) -Necrotic Tissue Type Eschar -Structure Exposed N/A -Texture (Lisa-wound Skin Appearance) Scarring -Moisture (Lisa-wound Skin Appearance Dry/Scaly ) -Color (Lisa-wound Skin Appearance) No Abnormality -Temperature (Lisa-wound Skin No Abnormality Appearance) (Pt Warm) -Ulcer Cleansing Wound Cleanser -Foul Odor after Cleansing No -Anesthetic Used 4% Lidocaine Solution #6 L Post -Current Size (cm) - Length 21 -Current Size (cm) - Width 2 -Current Size (cm) - Depth 0.5 -Total Square Cm 42 -Photo Taken No -Exudate Amt Medium (34-66%) -Exudate Type Serosanguineous -Wound Margin Distinct, Outline Attached -Granulation Amt Medium (34-66%) -Granulation Quality [place] -Necrosis Amt Medium (34-66%) -Necrotic Tissue Type Adherent Slough -Structure Exposed N/A -Texture (Lisa-wound Skin Appearance) Scarring -Moisture (Lisa-wound Skin Appearance Dry/Scaly ) -Color (Lisa-wound Skin Appearance) Hemosiderin Staining Rubor -Temperature (Lisa-wound Skin No Abnormality Appearance) (Pt Warm) -Tenderness on Palpation (Lisa-wound No Skin Appearance) -Ulcer Cleansing Rinsed/ Irrigated with Saline -Foul Odor after Cleansing No -Anesthetic Used 4% Lidocaine Solution #5 R Lat LE -Current Size (cm) - Length 3.1 -Current Size (cm) - Width 1.7 -Current Size (cm) - Depth 0.1 -Total Square Cm 5.27 -Photo Taken No -Exudate Amt Medium (34-66%) -Exudate Type Serosanguineous -Wound Margin Thickened -Granulation Amt Medium (34-66%) -Granulation Quality [place] -Necrosis Amt Medium (34-66%) -Necrotic Tissue Type Adherent Slough -Structure Exposed N/A -Texture (Lisa-wound Skin Appearance) Scarring -Moisture (Lisa-wound Skin Appearance Dry/Scaly ) -Color (Lisa-wound Skin Appearance) Hemosiderin Staining Rubor -Temperature (Lisa-wound Skin No Abnormality Appearance) (Pt Warm) -Tenderness on Palpation (Lisa-wound No Skin Appearance) -Ulcer Cleansing Wound Cleanser -Foul Odor after Cleansing No -Anesthetic Used 4% Lidocaine Solution #4 R post LE -Current Size (cm) - Length 1.2 -Current Size (cm) - Width 1 -Current Size (cm) - Depth 0.1 -Total Square Cm 1.2 -Photo Taken No -Exudate Amt Medium (34-66%) -Exudate Type Serosanguineous -Wound Margin Thickened -Granulation Amt Small (1-33%) -Granulation Quality [place] -Necrosis Amt Large (67-100%) -Necrotic Tissue Type Adherent Slough -Structure Exposed N/A -Texture (Lisa-wound Skin Appearance) Scarring -Moisture (Lisa-wound Skin Appearance Dry/Scaly ) -Color (Lisa-wound Skin Appearance) Hemosiderin Staining Rubor -Tenderness on Palpation (Lisa-wound No Skin Appearance) -Ulcer Cleansing Wound Cleanser -Foul Odor after Cleansing No -Anesthetic Used 4% Lidocaine Solution #3 R Med LE -Current Size (cm) - Length 3.5 -Current Size (cm) - Width 1.5 -Current Size (cm) - Depth 0.3 -Total Square Cm 5.25 -Photo Taken No -Exudate Amt Medium (34-66%) -Exudate Type Serosanguineous -Wound Margin Thickened -Granulation Amt Small (1-33%) -Granulation Quality [place] -Necrosis Amt Large (67-100%) -Necrotic Tissue Type Adherent Slough -Structure Exposed N/A -Texture (Lisa-wound Skin Appearance) Scarring -Moisture (Lisa-wound Skin Appearance Dry/Scaly ) -Color (Lisa-wound Skin Appearance) Hemosiderin Staining Rubor -Temperature (Lisa-wound Skin No Abnormality Appearance) (Pt Warm) -Tenderness on Palpation (Lisa-wound No Skin Appearance) -Ulcer Cleansing Wound Cleanser -Foul Odor after Cleansing No -Anesthetic Used 4% Lidocaine Solution #2 R [place] -Current Size (cm) - Length 15.5 -Current Size (cm) - Width 3.8 -Current Size (cm) - Depth 0.1 -Total Square Cm 58.90 -Photo Taken No -Exudate Amt Medium (34-66%) -Exudate Type Serosanguineous -Wound Margin Thickened -Granulation Amt Medium (34-66%) -Granulation Quality [place] Red -Necrosis Amt Medium (34-66%) -Necrotic Tissue Type Adherent Slough -Structure Exposed N/A -Texture (Lisa-wound Skin Appearance) Scarring -Moisture (Lisa-wound Skin Appearance Dry/Scaly ) -Color (Lisa-wound Skin Appearance) Hemosiderin Staining Rubor -Temperature (Lisa-wound Skin No Abnormality Appearance) (Pt Warm) -Tenderness on Palpation (Lisa-wound No Skin Appearance) -Ulcer Cleansing Wound Cleanser -Foul Odor after Cleansing No -Anesthetic Used 4% Lidocaine Solution #1 R 2nd toe amp/Arch/ Med Ankle -Current Size (cm) - Length 29 -Current Size (cm) - Width 2.8 -Current Size (cm) - Depth 1.3 -Total Square Cm 81.2 -Photo Taken No -Exudate Amt Medium (34-66%) -Exudate Type Serosanguineous -Wound Margin Thickened & Rolled Under -Granulation Amt Medium (34-66%) -Granulation Quality Red -Necrosis Amt Medium (34-66%) -Necrotic Tissue Type Adherent Slough -Structure Exposed N/A -Texture (Lisa-wound Skin Appearance) Scarring -Moisture (Lisa-wound Skin Appearance [place] ) -Color (Lisa-wound Skin Appearance) Hemosiderin Staining Rubor -Temperature (Lisa-wound Skin No Abnormality Appearance) (Pt Warm) -Tenderness on Palpation (Lisa-wound No Skin Appearance) -Ulcer Cleansing Wound Cleanser -Foul Odor after Cleansing No -Anesthetic Used 4% Lidocaine Solution [Edema Assessment] -Right Calf (cm) 33 -Right Ankle (cm) 21.3 -Left Calf (cm) 32.5 -Left Ankle (cm) 20 WC - Nurse 2 - General Ulcer CM Notes Start: 09/28/18 09:15 Freq: Status: Active Protocol: Activity Type Activity Date Activity User E-Sign Co-Sign Detail Recorded Client Recorded Date Recorded By Document 09/28/18 10:06 [id number] 09/28/18 10:15 09/28/18 10:06 Wound Center Nurse 2 [Procedure/Treatment] #10 right heel -Time 10:13 -Correct Patient Yes -Correct Side, Site, Position Yes -Correct Procedure Yes -Procedure Performed Yes -Type of Procedure Debridement -Clinical Debridement Subcutaneous -Post Debridement Size (cm) - Length 1.4 -Post Debridement Size (cm) - Width 1.0 -Post Debridement Size (cm) - Depth 0.1 -Total Square Cm 1.40 -Wound/Ulcer Outcome Not Healed -Ulcer Cleansing Rinsed/ Irrigated with Saline -Foul Odor after Cleansing No -Bioengineered Tissue No -Topical Lidocaine (%) 4 -Bleeding Controlled with Pressure -Treatment Response Procedure Tolerated Well #6 L Post -Time 10:09 -Correct Patient Yes -Correct Side, Site, Position Yes -Correct Procedure Yes -Procedure Performed Yes -Type of Procedure Debridement -Clinical Debridement Muscle -Post Debridement Size (cm) - Length 21.1 -Post Debridement Size (cm) - Width 2.1 -Post Debridement Size (cm) - Depth 0.5 -Total Square Cm 44.31 -Wound/Ulcer Outcome Not Healed -Ulcer Cleansing Rinsed/ Irrigated with Saline -Foul Odor after Cleansing No -Bioengineered Tissue No -Topical Lidocaine (%) 4 -Bleeding Controlled with Pressure -Treatment Response Procedure Tolerated Well #5 R Lat LE -Time 10:09 -Correct Patient Yes -Correct Side, Site, Position Yes -Correct Procedure Yes -Procedure Performed Yes -Type of Procedure Debridement -Clinical Debridement Subcutaneous -Post Debridement Size (cm) - Length 3.2 -Post Debridement Size (cm) - Width 1.8 -Post Debridement Size (cm) - Depth 0.1 -Total Square Cm 5.76 -Wound/Ulcer Outcome Not Healed -Ulcer Cleansing Rinsed/ Irrigated with Saline -Foul Odor after Cleansing No -Bioengineered Tissue No -Topical Lidocaine (%) 4 -Bleeding Controlled with Pressure -Treatment Response Procedure Tolerated Well #4 R post LE -Time 10:10 -Correct Patient Yes -Correct Side, Site, Position Yes -Correct Procedure Yes -Procedure Performed Yes -Type of Procedure Debridement -Clinical Debridement Subcutaneous -Post Debridement Size (cm) - Length 1.3 -Post Debridement Size (cm) - Width 1.1 -Post Debridement Size (cm) - Depth 0.1 -Total Square Cm 1.43 -Wound/Ulcer Outcome Not Healed -Ulcer Cleansing Rinsed/ Irrigated with Saline -Foul Odor after Cleansing No -Bioengineered Tissue No -Topical Lidocaine (%) 4 -Bleeding Controlled with Pressure -Treatment Response Procedure Tolerated Well #3 R Med LE -Time 10:10 -Correct Patient Yes -Correct Side, Site, Position Yes -Correct Procedure Yes -Procedure Performed Yes -Type of Procedure Debridement -Clinical Debridement Subcutaneous -Post Debridement Size (cm) - Length 3.6 -Post Debridement Size (cm) - Width 1.6 -Post Debridement Size (cm) - Depth 0.3 -Total Square Cm 5.76 -Wound/Ulcer Outcome Not Healed -Ulcer Cleansing Rinsed/ Irrigated with Saline -Foul Odor after Cleansing No -Bioengineered Tissue No -Topical Lidocaine (%) 4 -Bleeding Controlled with Pressure -Treatment Response Procedure Tolerated Well #2 R [place] Cluster -Time 10:11 -Correct Patient Yes -Correct Side, Site, Position Yes -Correct Procedure Yes -Procedure Performed Yes -Type of Procedure Debridement -Clinical Debridement Subcutaneous -Post Debridement Size (cm) - Length 15.6 -Post Debridement Size (cm) - Width 3.9 -Post Debridement Size (cm) - Depth 0.1 -Total Square Cm 60.84 -Wound/Ulcer Outcome Not Healed -Ulcer Cleansing Rinsed/ Irrigated with Saline -Foul Odor after Cleansing No -Bioengineered Tissue No -Topical Lidocaine (%) 4 -Bleeding Controlled with Pressure -Treatment Response Procedure Tolerated Well #1 R 2nd toe amp/Arch/ Med Ankle -Time 10:11 -Correct Patient Yes -Correct Side, Site, Position Yes -Correct Procedure Yes -Procedure Performed Yes -Type of Procedure Debridement -Clinical Debridement Subcutaneous -Post Debridement Size (cm) - Length 29.1 -Post Debridement Size (cm) - Width 2.9 -Post Debridement Size (cm) - Depth 1.3 -Total Square Cm 84.39 -Wound/Ulcer Outcome Not Healed -Ulcer Cleansing Rinsed/ Irrigated with Saline -Foul Odor after Cleansing No -Bioengineered Tissue No -Topical Lidocaine (%) 4 -Bleeding Controlled with Pressure -Treatment Response Procedure Tolerated Well [See Physician Procedure note for Specifics] Pain Scale: 0-10 Numeric [Pain] -Is Patient Pain Free? Yes Musculoskeletal: No Tenderness to Palpation of Joints or Extremities, Muscle Wasting, - - Open second and third ray resection Neurological: - - Lack of normal epicritic sensation light touch noted bilateral lower extremities Psych/Mental Status: Normal Affect, Appropriate Debridement Note Post-Debridement Measurements/Treatment WC - Nurse 2 - General Ulcer CM Notes Start: 09/28/18 09:15 Freq: Status: Active Protocol: Activity Type Activity Date Activity User E-Sign Co-Sign Detail Recorded Client Recorded Date Recorded By Document 09/28/18 10:06 [id number] 09/28/18 10:15 TM 09/28/18 10:06 Wound Center Nurse 2 #10 right heel -Time 10:13 -Correct Patient Yes -Correct Side, Site, Position Yes -Correct Procedure Yes -Procedure Performed Yes -Type of Procedure Debridement -Clinical Debridement Subcutaneous -Post Debridement Size (cm) - Length 1.4 -Post Debridement Size (cm) - Width 1.0 -Post Debridement Size (cm) - Depth 0.1 -Total Square Cm 1.40 -Wound/Ulcer Outcome Not Healed -Ulcer Cleansing Rinsed/ Irrigated with Saline -Foul Odor after Cleansing No -Bioengineered Tissue No -Topical Lidocaine (%) 4 -Bleeding Controlled with Pressure -Treatment Response Procedure Tolerated Well #6 L Post -Time 10:09 -Correct Patient Yes -Correct Side, Site, Position Yes -Correct Procedure Yes -Procedure Performed Yes -Type of Procedure Debridement -Clinical Debridement Muscle -Post Debridement Size (cm) - Length 21.1 -Post Debridement Size (cm) - Width 2.1 -Post Debridement Size (cm) - Depth 0.5 -Total Square Cm 44.31 -Wound/Ulcer Outcome Not Healed -Ulcer Cleansing Rinsed/ Irrigated with Saline -Foul Odor after Cleansing No -Bioengineered Tissue No -Topical Lidocaine (%) 4 -Bleeding Controlled with Pressure -Treatment Response Procedure Tolerated Well #5 R Lat LE -Time 10:09 -Correct Patient Yes -Correct Side, Site, Position Yes -Correct Procedure Yes -Procedure Performed Yes -Type of Procedure Debridement -Clinical Debridement Subcutaneous -Post Debridement Size (cm) - Length 3.2 -Post Debridement Size (cm) - Width 1.8 -Post Debridement Size (cm) - Depth 0.1 -Total Square Cm 5.76 -Wound/Ulcer Outcome Not Healed -Ulcer Cleansing Rinsed/ Irrigated with Saline -Foul Odor after Cleansing No -Bioengineered Tissue No -Topical Lidocaine (%) 4 -Bleeding Controlled with Pressure -Treatment Response Procedure Tolerated Well #4 R post LE -Time 10:10 -Correct Patient Yes -Correct Side, Site, Position Yes -Correct Procedure Yes -Procedure Performed Yes -Type of Procedure Debridement -Clinical Debridement Subcutaneous -Post Debridement Size (cm) - Length 1.3 -Post Debridement Size (cm) - Width 1.1 -Post Debridement Size (cm) - Depth 0.1 -Total Square Cm 1.43 -Wound/Ulcer Outcome Not Healed -Ulcer Cleansing Rinsed/ Irrigated with Saline -Foul Odor after Cleansing No -Bioengineered Tissue No -Topical Lidocaine (%) 4 -Bleeding Controlled with Pressure -Treatment Response Procedure Tolerated Well #3 R Med LE -Time 10:10 -Correct Patient Yes -Correct Side, Site, Position Yes -Correct Procedure Yes -Procedure Performed Yes -Type of Procedure Debridement -Clinical Debridement Subcutaneous -Post Debridement Size (cm) - Length 3.6 -Post Debridement Size (cm) - Width 1.6 -Post Debridement Size (cm) - Depth 0.3 -Total Square Cm 5.76 -Wound/Ulcer Outcome Not Healed -Ulcer Cleansing Rinsed/ Irrigated with Saline -Foul Odor after Cleansing No -Bioengineered Tissue No -Topical Lidocaine (%) 4 -Bleeding Controlled with Pressure -Treatment Response Procedure Tolerated Well #2 R [place] Cluster -Time 10:11 -Correct Patient Yes -Correct Side, Site, Position Yes -Correct Procedure Yes -Procedure Performed Yes -Type of Procedure Debridement -Clinical Debridement Subcutaneous -Post Debridement Size (cm) - Length 15.6 -Post Debridement Size (cm) - Width 3.9 -Post Debridement Size (cm) - Depth 0.1 -Total Square Cm 60.84 -Wound/Ulcer Outcome Not Healed -Ulcer Cleansing Rinsed/ Irrigated with Saline -Foul Odor after Cleansing No -Bioengineered Tissue No -Topical Lidocaine (%) 4 -Bleeding Controlled with Pressure -Treatment Response Procedure Tolerated Well #1 R 2nd toe amp/Arch/ Med Ankle -Time 10:11 -Correct Patient Yes -Correct Side, Site, Position Yes -Correct Procedure Yes -Procedure Performed Yes -Type of Procedure Debridement -Clinical Debridement Subcutaneous -Post Debridement Size (cm) - Length 29.1 -Post Debridement Size (cm) - Width 2.9 -Post Debridement Size (cm) - Depth 1.3 -Total Square Cm 84.39 -Wound/Ulcer Outcome Not Healed -Ulcer Cleansing Rinsed/ Irrigated with Saline -Foul Odor after Cleansing No -Bioengineered Tissue No -Topical Lidocaine (%) 4 -Bleeding Controlled with Pressure -Treatment Response Procedure Tolerated Well Pain Scale: 0-10 Numeric Is Patient Pain Free? Yes Wound debrided: foot Laterality: Right Wound Grade/Stage: grade 3 Type of Debridement: Excisional debridement Anesthesia Used: 4% Lidocaine Solution Depth: in the subcutaneous layer Percentage of wound debrided: 100 Instrument Used: #15 blade Tissue Removed: fibrous, devitalized subcutaneous, biofilm, slough Severity: Fat Layer Exposed Amount of bleeding with debridement: Mild Bleeding Controlled with: Pressure Patient tolerated procedure well - Additional Wound Wound debrided: leg anterior Laterality: Right Wound Grade/Stage: grade 1 Type of Debridement: Excisional debridement Anesthesia Used: 4% Lidocaine Solution Depth: in the subcutaneous layer Percentage of wound debrided: 100 Instrument Used: #15 blade Tissue Removed: fibrous, devitalized subcutaneous, biofilm, slough Severity: Fat Layer Exposed Amount of bleeding with debridement: Mild Bleeding Controlled with: Pressure Patient tolerated procedure: Patient tolerated procedure well - Additional Wound Wound debrided: leg medial Laterality: Right Wound Grade/Stage: grade 1 Type of Debridement: Excisional debridement Anesthesia Used: 4% Lidocaine Solution Depth: in the subcutaneous layer Percentage of wound debrided: 100 Instrument Used: #15 blade Tissue Removed: fibrous, devitalized subcutaneous, biofilm, slough Severity: Fat Layer Exposed Amount of bleeding with debridement: Mild Bleeding Controlled with: Pressure Patient tolerated procedure: Patient tolerated procedure well - Additional Wound Wound debrided: leg lateral Laterality: Right Wound Grade/Stage: grade 1 Type of Debridement: Excisional debridement Anesthesia Used: 4% Lidocaine Solution Depth: in the subcutaneous layer Percentage of wound debrided: 100 Instrument Used: #15 blade Tissue Removed: fibrous, devitalized subcutaneous, biofilm, slough Severity: Fat Layer Exposed Amount of bleeding with debridement: Mild Bleeding Controlled with: Pressure Patient tolerated procedure: Patient tolerated procedure well - Additional Wound Wound debrided: leg posterior Laterality: Right Wound Grade/Stage: grade 1 Type of Debridement: Excisional debridement Anesthesia Used: 4% Lidocaine Solution Depth: in the subcutaneous layer Percentage of wound debrided: 100 Instrument Used: #15 blade Tissue Removed: fibrous, devitalized subcutaneous, biofilm, slough Severity: Fat Layer Exposed Amount of bleeding with debridement: Mild Bleeding Controlled with: Pressure Patient tolerated procedure: Patient tolerated procedure well - Additional Wound Wound debrided: posterior leg Laterality: Left Wound Grade/Stage: grade 2 Type of Debridement: Excisional debridement Anesthesia Used: 4% Lidocaine Solution Depth: in the subcutaneous layer Percentage of wound debrided: - - 5 % tendon. 95% subcutaneous Instrument Used: #15 blade Tissue Removed: fibrous, devitalized subcutaneous and tendon, biofilm, slough Severity: Necrosis of Muscle Amount of bleeding with debridement: Mild Bleeding Controlled with: Pressure Patient tolerated procedure: Patient tolerated procedure well - Additional Wound Wound debrided: lateral leg Laterality: Left Wound Grade/Stage: grade 1 Type of Debridement: Excisional debridement Anesthesia Used: 4% Lidocaine Solution Depth: in the subcutaneous layer Percentage of wound debrided: 100 Instrument Used: #15 blade Tissue Removed: fibrous, devitalized subcutaneous, biofilm, slough Severity: Fat Layer Exposed Amount of bleeding with debridement: Mild Bleeding Controlled with: Pressure Patient tolerated procedure: Patient tolerated procedure well Assessment/Plan Active Problems Delayed wound healing (Chronic) 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 (Chronic) Ulcer of right lower extremity with fat layer exposed (Chronic) Ulcer of left lower extremity with fat layer exposed (Chronic) Type 2 diabetes mellitus with diabetic polyneuropathy (Chronic) Localized edema (Chronic) Malnutrition (Chronic) Assessment: Open second and third ray resection secondary to 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 Diabetic neuropathy. Malnutrition suspected. 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 Delayed healing. Gait impairment and fall risk. Other comorbidities, right knee ulcer, tendon exposed (Dr. Gilbert managed), left knee ulcer (Dr. Gilbert managed) Plan: I reviewed and discussed his case with the patient and the patient's . Subcutaneous and devitalized tendon debridements were performed as noted in the clinical panel. I Recommended changing the dressings daily with long term facility staff assistance with santyl to knees (per Dr. Gilbert) and aquacel ag to the leg ulcers, santyl to devitalized tendon zones, and wound vac to the right foot. I also recommend continued wound VAC changes to the right foot that extends to the medial ankle every 3 days. It is noted that this foot site has some bridging epithelialization noted to the center and is now broken into 2 regions; the wound VAC was bridged over the site. He was reassured no worsening status or local section is not notedtoday. The ulcer sites have improved quality with granulation tissue. The scab was gently removed from the right heel and this is a new ulcer sites; there is underlying fibrous and granulation tissue. He had 6 weeks of IV antibiotic of Unasyn. Infectious disease was on consult during his last [facility] admission. I recommend he avoids laying directly on his wounds to reduce pressure, and I was concerned about his perfusion to his limbs. He had an arterial Doppler scheduled with Dr. Morgan's staff on August 02, 2018 and overall perfusion was confirmed; additional intervention or workup was not recommended. To continue with nutritional supplementation optimize healing; I recommend Juan. I recommend he sustained from smoking and alcohol activities to optimize healing as well. His workup for vasculitis and underlying autoimmune disorder is also pending. A punch biopsy was sent during his last surgical intervention on June 10 and this demonstrated inflammatory changes without malignancy. He had initial screening labs and so far he has a negative RA titer, HL of the 27, KEVIN, anti-CCP, and rheumatoid factor. Several his antibody screenings were not reportable. I have communicated this workup with his current managing physician at [facility], Dr. Perdomo, to see if additional recommendations or workup is indicated. He is home now. I will further forward this information along to his primary care physician, Dr. Sparks. Hyperbaric oxygen therapy may be considered if he is stable enough. I am concerned about his cardiac output. He understands his goals are infection prevention, pain control, and functional progression. I answered all his questions. Dr. Gilbert continues to manage his bilateral knee ulcers including debridements and traditional wound care plan. I recommend same-day surgery versa jet debridement with application of advanced wound care products including epi cord, amnio fill, and amnio fix product line derived from amniotic cord cells and umbilical cord cells. The benefits, indications, planned procedure, possible benefits risks and anticipated healing time is were discussed. He understands this is a staged procedure and often serial applications are required. He obtained his clearance from Dr. Sparks and an additional Dr. Ponce cardiac evaluation preoperative was recommended. The patient is frustrated with having see another doctor and his tentatively canceled his surgery. I reviewed the urgency with healing these wounds in a timely manner and encouraged him to reconsider this. I answered all of his questions. Additional amputation of the right foot is not planned due to his fairly nonambulatory status. Smoking cessation was discussed in detail again today and compliance is imperative to optimize healing of surgical success. It is also noted he may be hyperbaric oxygen therapy candidate due to his grade 3 nguyen ulcer status. He is not sure he can commit to a daily sessions. The benefits risks complications and anticipated healing time and management were discussed in detail today. He did review a hyperbaric oxygen therapy educational video. I reviewed his last cardiac evaluation including his echocardiogram which demonstrated ejection fraction of 50%. I will follow-up with him on his decision next week and will implement clearance and diagnostic data if appropriate. I recommend further follow-up at the wound care center 1 week with me, or call sooner if he has any questions. Compliance at this advanced wound care center was reviewed. He understands additional palliative care programs are an option if he does not wish to proceed with basic advanced wound care that has been recommended.
--- NOTE | 2018-09-28 11:20 | PCM.WC.PN ---
(1) Ulcer of left lower extremity with fat layer exposed Status: Chronic Current Visit: Yes Code(s): L97.922 - Non-pressure chronic ulcer of unspecified part of left lower leg with fat layer exposed (2) Ulcer of right lower extremity with fat layer exposed Status: Chronic Current Visit: Yes Code(s): L97.912 - Non-pressure chronic ulcer of unspecified part of right lower leg with fat layer exposed (3) Type 2 diabetes mellitus with diabetic polyneuropathy Status: Chronic Current Visit: Yes Code(s): E11.42 - Type 2 diabetes mellitus with diabetic polyneuropathy Type of Wound Chief Complaint: right and left Leg ulcers and right foot ulcer History of Wound: Mr. Arguello is a 63-year-old male with multiple comorbidities follows up for delayed healing ulcers to the right foot as well as bilateral legs. It is noted he previously had widespread debridements and fasciotomies performed to bilateral lower extremities secondary to life-threatening and limb threatening infection; this was previously performed at [facility]. He continues to follow with Dr. Gilbert for her knee ulcers, and I saw him today for his other ulcer sites. He has been applying Santyl to both the wounds, Aquacel to leg ulcers, and wound VAC to right foot defect with quality improvement. He denies chills, fever or otherwise feeling of unwell. He presents today with his . The scab to the right heel has loosened and this will be further evaluated today. Progress of Wound: Some worsning of his right knee ulcer. He reports trauma to the area. - Physical Exam Vital Signs Temp Pulse Resp BP 96.7 F L 95 18 123/80 H 09/28/18 09:16 09/28/18 09:16 09/28/18 09:16 09/28/18 09:16 General: Alert, Oriented x3, Cooperative, No apparent distress HEENT: Normocephalic Oral: Moist Mucosa Neck: Supple Lungs: Normal air movement Extremities: No cyanosis, Edema Skin: Ulcer/ Wound Wound Measurements and Assessment WC - Nurse 1 - General Ulcer Measurement Start: 09/28/18 09:15 Freq: Status: Active Protocol: Activity Type Activity Date Activity User E-Sign Co-Sign Detail Recorded Client Recorded Date Recorded By Document 09/28/18 09:16 DL [id number] 09/28/18 09:45 DL 09/28/18 09:16 Wound Center Nurse 1 [Ulcer Assessment] 9.L knee -Current Size (cm) - Length 1.2 -Current Size (cm) - Width 1.3 -Current Size (cm) - Depth 0.3 -Total Square Cm 1.56 -Photo Taken No -Exudate Amt Small (1-33%) -Exudate Type Serosanguineous -Wound Margin Thickened -Granulation Amt None Present (0 %) -Necrosis Amt Large (67-100%) -Necrotic Tissue Type Adherent Slough -Structure Exposed N/A -Texture (Lisa-wound Skin Appearance) Scarring -Moisture (Lisa-wound Skin Appearance Dry/Scaly ) -Color (Lisa-wound Skin Appearance) Rubor -Tenderness on Palpation (Lisa-wound No Skin Appearance) -Ulcer Cleansing Wound Cleanser -Foul Odor after Cleansing No -Anesthetic Used 4% Lidocaine Solution #8 r Knee -Current Size (cm) - Length 0.2 -Current Size (cm) - Width 0.5 -Current Size (cm) - Depth 0.1 -Total Square Cm 0.10 -Photo Taken No -Exudate Amt None Present (0 %) -Wound Margin Thickened -Granulation Amt None Present (0 %) -Necrosis Amt Small (1-33%) -Necrotic Tissue Type Eschar -Structure Exposed N/A -Texture (Lisa-wound Skin Appearance) Scarring -Moisture (Lisa-wound Skin Appearance Dry/Scaly ) -Color (Lisa-wound Skin Appearance) No Abnormality -Temperature (Lisa-wound Skin No Abnormality Appearance) (Pt Warm) -Ulcer Cleansing Wound Cleanser -Foul Odor after Cleansing No -Anesthetic Used 4% Lidocaine Solution #6 L Post -Current Size (cm) - Length 21 -Current Size (cm) - Width 2 -Current Size (cm) - Depth 0.5 -Total Square Cm 42 -Photo Taken No -Exudate Amt Medium (34-66%) -Exudate Type Serosanguineous -Wound Margin Distinct, Outline Attached -Granulation Amt Medium (34-66%) -Granulation Quality [place] -Necrosis Amt Medium (34-66%) -Necrotic Tissue Type Adherent Slough -Structure Exposed N/A -Texture (Lisa-wound Skin Appearance) Scarring -Moisture (Lisa-wound Skin Appearance Dry/Scaly ) -Color (Lisa-wound Skin Appearance) Hemosiderin Staining Rubor -Temperature (Lisa-wound Skin No Abnormality Appearance) (Pt Warm) -Tenderness on Palpation (Lisa-wound No Skin Appearance) -Ulcer Cleansing Rinsed/ Irrigated with Saline -Foul Odor after Cleansing No -Anesthetic Used 4% Lidocaine Solution #5 R Lat LE -Current Size (cm) - Length 3.1 -Current Size (cm) - Width 1.7 -Current Size (cm) - Depth 0.1 -Total Square Cm 5.27 -Photo Taken No -Exudate Amt Medium (34-66%) -Exudate Type Serosanguineous -Wound Margin Thickened -Granulation Amt Medium (34-66%) -Granulation Quality [place] -Necrosis Amt Medium (34-66%) -Necrotic Tissue Type Adherent Slough -Structure Exposed N/A -Texture (Lisa-wound Skin Appearance) Scarring -Moisture (Lisa-wound Skin Appearance Dry/Scaly ) -Color (Lisa-wound Skin Appearance) Hemosiderin Staining Rubor -Temperature (Lisa-wound Skin No Abnormality Appearance) (Pt Warm) -Tenderness on Palpation (Lisa-wound No Skin Appearance) -Ulcer Cleansing Wound Cleanser -Foul Odor after Cleansing No -Anesthetic Used 4% Lidocaine Solution #4 R post LE -Current Size (cm) - Length 1.2 -Current Size (cm) - Width 1 -Current Size (cm) - Depth 0.1 -Total Square Cm 1.2 -Photo Taken No -Exudate Amt Medium (34-66%) -Exudate Type Serosanguineous -Wound Margin Thickened -Granulation Amt Small (1-33%) -Granulation Quality [place] -Necrosis Amt Large (67-100%) -Necrotic Tissue Type Adherent Slough -Structure Exposed N/A -Texture (Lisa-wound Skin Appearance) Scarring -Moisture (Lisa-wound Skin Appearance Dry/Scaly ) -Color (Lisa-wound Skin Appearance) Hemosiderin Staining Rubor -Tenderness on Palpation (Lisa-wound No Skin Appearance) -Ulcer Cleansing Wound Cleanser -Foul Odor after Cleansing No -Anesthetic Used 4% Lidocaine Solution #3 R Med LE -Current Size (cm) - Length 3.5 -Current Size (cm) - Width 1.5 -Current Size (cm) - Depth 0.3 -Total Square Cm 5.25 -Photo Taken No -Exudate Amt Medium (34-66%) -Exudate Type Serosanguineous -Wound Margin Thickened -Granulation Amt Small (1-33%) -Granulation Quality [place] -Necrosis Amt Large (67-100%) -Necrotic Tissue Type Adherent Slough -Structure Exposed N/A -Texture (Lisa-wound Skin Appearance) Scarring -Moisture (Lisa-wound Skin Appearance Dry/Scaly ) -Color (Lisa-wound Skin Appearance) Hemosiderin Staining Rubor -Temperature (Lisa-wound Skin No Abnormality Appearance) (Pt Warm) -Tenderness on Palpation (Lisa-wound No Skin Appearance) -Ulcer Cleansing Wound Cleanser -Foul Odor after Cleansing No -Anesthetic Used 4% Lidocaine Solution #2 R [place] Cluster -Current Size (cm) - Length 15.5 -Current Size (cm) - Width 3.8 -Current Size (cm) - Depth 0.1 -Total Square Cm 58.90 -Photo Taken No -Exudate Amt Medium (34-66%) -Exudate Type Serosanguineous -Wound Margin Thickened -Granulation Amt Medium (34-66%) -Granulation Quality [place] Red -Necrosis Amt Medium (34-66%) -Necrotic Tissue Type Adherent Slough -Structure Exposed N/A -Texture (Lisa-wound Skin Appearance) Scarring -Moisture (Lisa-wound Skin Appearance Dry/Scaly ) -Color (Lisa-wound Skin Appearance) Hemosiderin Staining Rubor -Temperature (Lisa-wound Skin No Abnormality Appearance) (Pt Warm) -Tenderness on Palpation (Lisa-wound No Skin Appearance) -Ulcer Cleansing Wound Cleanser -Foul Odor after Cleansing No -Anesthetic Used 4% Lidocaine Solution #1 R 2nd toe amp/Arch/ Med Ankle -Current Size (cm) - Length 29 -Current Size (cm) - Width 2.8 -Current Size (cm) - Depth 1.3 -Total Square Cm 81.2 -Photo Taken No -Exudate Amt Medium (34-66%) -Exudate Type Serosanguineous -Wound Margin Thickened & Rolled Under -Granulation Amt Medium (34-66%) -Granulation Quality Red -Necrosis Amt Medium (34-66%) -Necrotic Tissue Type Adherent Slough -Structure Exposed N/A -Texture (Lisa-wound Skin Appearance) Scarring -Moisture (Lisa-wound Skin Appearance Maceration ) -Color (Lisa-wound Skin Appearance) Hemosiderin Staining Rubor -Temperature (Lisa-wound Skin No Abnormality Appearance) (Pt Warm) -Tenderness on Palpation (Lisa-wound No Skin Appearance) -Ulcer Cleansing Wound Cleanser -Foul Odor after Cleansing No -Anesthetic Used 4% Lidocaine Solution [Edema Assessment] -Right Calf (cm) 33 -Right Ankle (cm) 21.3 -Left Calf (cm) 32.5 -Left Ankle (cm) 20 WC - Nurse 2 - General Ulcer CM Notes Start: 09/28/18 09:15 Freq: Status: Active Protocol: Activity Type Activity Date Activity User E-Sign Co-Sign Detail Recorded Client Recorded Date Recorded By Document 09/28/18 10:06 TM [id number] 09/28/18 10:15 TM Document 09/28/18 10:41 MW [id number] 09/28/18 10:51 MW 09/28/18 09/28/18 10:06 10:41 Wound Center Nurse 2 [Procedure/Treatment] #10 right heel -Time 10:13 -Correct Patient Yes -Correct Side, Site, Position Yes -Correct Procedure Yes -Procedure Performed Yes -Type of Procedure Debridement -Clinical Debridement Subcutaneous -Post Debridement Size (cm) - Length 1.4 -Post Debridement Size (cm) - Width 1.0 -Post Debridement Size (cm) - Depth 0.1 -Total Square Cm 1.40 -Wound/Ulcer Outcome Not Healed -Ulcer Cleansing Rinsed/ Irrigated with Saline -Foul Odor after Cleansing No -Bioengineered Tissue No -Topical Lidocaine (%) 4 -Bleeding Controlled with Pressure -Treatment Response Procedure Tolerated Well 9.L knee -Time 10:42 -Correct Patient Yes -Correct Side, Site, Position Yes -Correct Procedure Yes -Procedure Performed Yes -Type of Procedure Debridement -Clinical Debridement Subcutaneous -Post Debridement Size (cm) - Length 0.2 -Post Debridement Size (cm) - Width 0.6 -Post Debridement Size (cm) - Depth 0.1 -Total Square Cm 0.12 -Wound/Ulcer Outcome Not Healed -Ulcer Cleansing Rinsed/ Irrigated with Saline -Foul Odor after Cleansing No -Bioengineered Tissue No -Bleeding Controlled with Pressure -Treatment Response Procedure Tolerated Well #8 r Knee -Time 10:42 -Correct Patient Yes -Correct Side, Site, Position Yes -Correct Procedure Yes -Procedure Performed Yes -Type of Procedure Debridement -Clinical Debridement Subcutaneous -Post Debridement Size (cm) - Length 1.2 -Post Debridement Size (cm) - Width 1.7 -Post Debridement Size (cm) - Depth 0.3 -Total Square Cm 2.04 -Wound/Ulcer Outcome Not Healed -Ulcer Cleansing Rinsed/ Irrigated with Saline -Foul Odor after Cleansing No -Bioengineered Tissue No -Bleeding Controlled with Pressure -Treatment Response Procedure Tolerated Well #6 L Post -Time 10:09 -Correct Patient Yes -Correct Side, Site, Position Yes -Correct Procedure Yes -Procedure Performed Yes -Type of Procedure Debridement -Clinical Debridement Muscle -Post Debridement Size (cm) - Length 21.1 -Post Debridement Size (cm) - Width 2.1 -Post Debridement Size (cm) - Depth 0.5 -Total Square Cm 44.31 -Wound/Ulcer Outcome Not Healed -Ulcer Cleansing Rinsed/ Irrigated with Saline -Foul Odor after Cleansing No -Bioengineered Tissue No -Topical Lidocaine (%) 4 -Bleeding Controlled with Pressure -Treatment Response Procedure Tolerated Well #5 R Lat LE -Time 10:09 -Correct Patient Yes -Correct Side, Site, Position Yes -Correct Procedure Yes -Procedure Performed Yes -Type of Procedure Debridement -Clinical Debridement Subcutaneous -Post Debridement Size (cm) - Length 3.2 -Post Debridement Size (cm) - Width 1.8 -Post Debridement Size (cm) - Depth 0.1 -Total Square Cm 5.76 -Wound/Ulcer Outcome Not Healed -Ulcer Cleansing Rinsed/ Irrigated with Saline -Foul Odor after Cleansing No -Bioengineered Tissue No -Topical Lidocaine (%) 4 -Bleeding Controlled with Pressure -Treatment Response Procedure Tolerated Well #4 R post LE -Time 10:10 -Correct Patient Yes -Correct Side, Site, Position Yes -Correct Procedure Yes -Procedure Performed Yes -Type of Procedure Debridement -Clinical Debridement Subcutaneous -Post Debridement Size (cm) - Length 1.3 -Post Debridement Size (cm) - Width 1.1 -Post Debridement Size (cm) - Depth 0.1 -Total Square Cm 1.43 -Wound/Ulcer Outcome Not Healed -Ulcer Cleansing Rinsed/ Irrigated with Saline -Foul Odor after Cleansing No -Bioengineered Tissue No -Topical Lidocaine (%) 4 -Bleeding Controlled with Pressure -Treatment Response Procedure Tolerated Well #3 R Med LE -Time 10:10 -Correct Patient Yes -Correct Side, Site, Position Yes -Correct Procedure Yes -Procedure Performed Yes -Type of Procedure Debridement -Clinical Debridement Subcutaneous -Post Debridement Size (cm) - Length 3.6 -Post Debridement Size (cm) - Width 1.6 -Post Debridement Size (cm) - Depth 0.3 -Total Square Cm 5.76 -Wound/Ulcer Outcome Not Healed -Ulcer Cleansing Rinsed/ Irrigated with Saline -Foul Odor after Cleansing No -Bioengineered Tissue No -Topical Lidocaine (%) 4 -Bleeding Controlled with Pressure -Treatment Response Procedure Tolerated Well #2 R [place] Cluster -Time 10:11 -Correct Patient Yes -Correct Side, Site, Position Yes -Correct Procedure Yes -Procedure Performed Yes -Type of Procedure Debridement -Clinical Debridement Subcutaneous -Post Debridement Size (cm) - Length 15.6 -Post Debridement Size (cm) - Width 3.9 -Post Debridement Size (cm) - Depth 0.1 -Total Square Cm 60.84 -Wound/Ulcer Outcome Not Healed -Ulcer Cleansing Rinsed/ Irrigated with Saline -Foul Odor after Cleansing No -Bioengineered Tissue No -Topical Lidocaine (%) 4 -Bleeding Controlled with Pressure -Treatment Response Procedure Tolerated Well #1 R 2nd toe amp/Arch/ Med Ankle -Time 10:11 -Correct Patient Yes -Correct Side, Site, Position Yes -Correct Procedure Yes -Procedure Performed Yes -Type of Procedure Debridement -Clinical Debridement Subcutaneous -Post Debridement Size (cm) - Length 29.1 -Post Debridement Size (cm) - Width 2.9 -Post Debridement Size (cm) - Depth 1.3 -Total Square Cm 84.39 -Wound/Ulcer Outcome Not Healed -Ulcer Cleansing Rinsed/ Irrigated with Saline -Foul Odor after Cleansing No -Bioengineered Tissue No -Topical Lidocaine (%) 4 -Bleeding Controlled with Pressure -Treatment Response Procedure Tolerated Well [See Physician Procedure note for Specifics] Pain Scale: 0-10 Numeric [Pain] -Is Patient Pain Free? Yes Musculoskeletal: No Muscle Wasting Neurological: Cranial nerves II-XII grossly intact Psych/Mental Status: Normal Affect Debridement Note Post-Debridement Measurements/Treatment WC - Nurse 2 - General Ulcer CM Notes Start: 09/28/18 09:15 Freq: Status: Active Protocol: Activity Type Activity Date Activity User E-Sign Co-Sign Detail Recorded Client Recorded Date Recorded By Document 09/28/18 10:06 TM [id number] 09/28/18 10:15 TM Document 09/28/18 10:41 MW [id number] 09/28/18 10:51 MW 09/28/18 09/28/18 10:06 10:41 Wound Center Nurse 2 #10 right heel -Time 10:13 -Correct Patient Yes -Correct Side, Site, Position Yes -Correct Procedure Yes -Procedure Performed Yes -Type of Procedure Debridement -Clinical Debridement Subcutaneous -Post Debridement Size (cm) - Length 1.4 -Post Debridement Size (cm) - Width 1.0 -Post Debridement Size (cm) - Depth 0.1 -Total Square Cm 1.40 -Wound/Ulcer Outcome Not Healed -Ulcer Cleansing Rinsed/ Irrigated with Saline -Foul Odor after Cleansing No -Bioengineered Tissue No -Topical Lidocaine (%) 4 -Bleeding Controlled with Pressure -Treatment Response Procedure Tolerated Well 9.L knee -Time 10:42 -Correct Patient Yes -Correct Side, Site, Position Yes -Correct Procedure Yes -Procedure Performed Yes -Type of Procedure Debridement -Clinical Debridement Subcutaneous -Post Debridement Size (cm) - Length 0.2 -Post Debridement Size (cm) - Width 0.6 -Post Debridement Size (cm) - Depth 0.1 -Total Square Cm 0.12 -Wound/Ulcer Outcome Not Healed -Ulcer Cleansing Rinsed/ Irrigated with Saline -Foul Odor after Cleansing No -Bioengineered Tissue No -Bleeding Controlled with Pressure -Treatment Response Procedure Tolerated Well #8 r Knee -Time 10:42 -Correct Patient Yes -Correct Side, Site, Position Yes -Correct Procedure Yes -Procedure Performed Yes -Type of Procedure Debridement -Clinical Debridement Subcutaneous -Post Debridement Size (cm) - Length 1.2 -Post Debridement Size (cm) - Width 1.7 -Post Debridement Size (cm) - Depth 0.3 -Total Square Cm 2.04 -Wound/Ulcer Outcome Not Healed -Ulcer Cleansing Rinsed/ Irrigated with Saline -Foul Odor after Cleansing No -Bioengineered Tissue No -Bleeding Controlled with Pressure -Treatment Response Procedure Tolerated Well #6 L Post -Time 10:09 -Correct Patient Yes -Correct Side, Site, Position Yes -Correct Procedure Yes -Procedure Performed Yes -Type of Procedure Debridement -Clinical Debridement Muscle -Post Debridement Size (cm) - Length 21.1 -Post Debridement Size (cm) - Width 2.1 -Post Debridement Size (cm) - Depth 0.5 -Total Square Cm 44.31 -Wound/Ulcer Outcome Not Healed -Ulcer Cleansing Rinsed/ Irrigated with Saline -Foul Odor after Cleansing No -Bioengineered Tissue No -Topical Lidocaine (%) 4 -Bleeding Controlled with Pressure -Treatment Response Procedure Tolerated Well #5 R Lat LE -Time 10:09 -Correct Patient Yes -Correct Side, Site, Position Yes -Correct Procedure Yes -Procedure Performed Yes -Type of Procedure Debridement -Clinical Debridement Subcutaneous -Post Debridement Size (cm) - Length 3.2 -Post Debridement Size (cm) - Width 1.8 -Post Debridement Size (cm) - Depth 0.1 -Total Square Cm 5.76 -Wound/Ulcer Outcome Not Healed -Ulcer Cleansing Rinsed/ Irrigated with Saline -Foul Odor after Cleansing No -Bioengineered Tissue No -Topical Lidocaine (%) 4 -Bleeding Controlled with Pressure -Treatment Response Procedure Tolerated Well #4 R post LE -Time 10:10 -Correct Patient Yes -Correct Side, Site, Position Yes -Correct Procedure Yes -Procedure Performed Yes -Type of Procedure Debridement -Clinical Debridement Subcutaneous -Post Debridement Size (cm) - Length 1.3 -Post Debridement Size (cm) - Width 1.1 -Post Debridement Size (cm) - Depth 0.1 -Total Square Cm 1.43 -Wound/Ulcer Outcome Not Healed -Ulcer Cleansing Rinsed/ Irrigated with Saline -Foul Odor after Cleansing No -Bioengineered Tissue No -Topical Lidocaine (%) 4 -Bleeding Controlled with Pressure -Treatment Response Procedure Tolerated Well #3 R Med LE -Time 10:10 -Correct Patient Yes -Correct Side, Site, Position Yes -Correct Procedure Yes -Procedure Performed Yes -Type of Procedure Debridement -Clinical Debridement Subcutaneous -Post Debridement Size (cm) - Length 3.6 -Post Debridement Size (cm) - Width 1.6 -Post Debridement Size (cm) - Depth 0.3 -Total Square Cm 5.76 -Wound/Ulcer Outcome Not Healed -Ulcer Cleansing Rinsed/ Irrigated with Saline -Foul Odor after Cleansing No -Bioengineered Tissue No -Topical Lidocaine (%) 4 -Bleeding Controlled with Pressure -Treatment Response Procedure Tolerated Well #2 R [place] Cluster -Time 10:11 -Correct Patient Yes -Correct Side, Site, Position Yes -Correct Procedure Yes -Procedure Performed Yes -Type of Procedure Debridement -Clinical Debridement Subcutaneous -Post Debridement Size (cm) - Length 15.6 -Post Debridement Size (cm) - Width 3.9 -Post Debridement Size (cm) - Depth 0.1 -Total Square Cm 60.84 -Wound/Ulcer Outcome Not Healed -Ulcer Cleansing Rinsed/ Irrigated with Saline -Foul Odor after Cleansing No -Bioengineered Tissue No -Topical Lidocaine (%) 4 -Bleeding Controlled with Pressure -Treatment Response Procedure Tolerated Well #1 R 2nd toe amp/Arch/ Med Ankle -Time 10:11 -Correct Patient Yes -Correct Side, Site, Position Yes -Correct Procedure Yes -Procedure Performed Yes -Type of Procedure Debridement -Clinical Debridement Subcutaneous -Post Debridement Size (cm) - Length 29.1 -Post Debridement Size (cm) - Width 2.9 -Post Debridement Size (cm) - Depth 1.3 -Total Square Cm 84.39 -Wound/Ulcer Outcome Not Healed -Ulcer Cleansing Rinsed/ Irrigated with Saline -Foul Odor after Cleansing No -Bioengineered Tissue No -Topical Lidocaine (%) 4 -Bleeding Controlled with Pressure -Treatment Response Procedure Tolerated Well Pain Scale: 0-10 Numeric Is Patient Pain Free? Yes Wound debrided: Right knee Wound Grade/Stage: Stage III Type of Debridement: Excisional debridement Anesthesia Used: 4% Lidocaine Solution Depth: Down to and including healthy tissue, in the subcutaneous layer Percentage of wound debrided: 100 Instrument Used: 7mm curette Tissue Removed: Slough and devitalized tissue Severity: Fat Layer Exposed Amount of bleeding with debridement: Mild Bleeding Controlled with: Pressure Patient tolerated procedure well - Additional Wound Wound debrided: Left knee Wound Grade/Stage: Stage II Type of Debridement: Excisional debridement Anesthesia Used: 4% Lidocaine Solution Depth: Down to and including healthy tissue, in the subcutaneous layer Percentage of wound debrided: 100, - - 1mm Instrument Used: 7mm curette Tissue Removed: Slough and devitalized tissue Severity: Fat Layer Exposed Amount of bleeding with debridement: Mild Bleeding Controlled with: Pressure Patient tolerated procedure: Patient tolerated procedure well Assessment/Plan Active Problems Delayed wound healing (Chronic) 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 (Chronic) Ulcer of right lower extremity with fat layer exposed (Chronic) Ulcer of left lower extremity with fat layer exposed (Chronic) Type 2 diabetes mellitus with diabetic polyneuropathy (Chronic) Localized edema (Chronic) Malnutrition (Chronic) Assessment: Open second and third ray resection secondary to 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 Diabetic neuropathy. Malnutrition suspected. 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 Delayed healing. Gait impairment and fall risk. Other comorbidities, right knee ulcer, tendon exposed (Dr. Gilbert managed), left knee ulcer (Dr. Gilbert managed) Plan: Knee ulcers with no significant improvement. I am not sure the product is being applied properly especially on the left which has a lot of scabbing. Debridement done as documented above, procedure was well tolerated. Continue Alana however, leave in place x 3 days. Change on Wednesday. Continue increased protein intake. Elevate lower extremities. Avoid idle standing. Other management as per Dr. Gruber. Follow-up in 1 week. This note was generated with [employer] dictation software. It may contain incorrect words, spelling, and punctuation that were not noted in checking the note before signing.
[2018-10-05 09:18] VITALS: BP 122/75; PULSE 99; RESP 16; TEMP 35.4
--- NOTE | 2018-10-05 10:37 | PCM.WC.PN ---
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 Current Visit: Yes Code(s): L97.923 - Non-pressure chronic ulcer of unspecified part of left lower leg with necrosis of muscle (5) Delayed wound healing Status: Chronic Current Visit: Yes Code(s): T14.8XXD - Other injury of unspecified body region, subsequent encounter (6) Vasculitis Status: Chronic Current Visit: Yes Code(s): I77.6 - Arteritis, unspecified (7) Type 2 diabetes mellitus with diabetic polyneuropathy Status: Chronic Current Visit: Yes Code(s): E11.42 - Type 2 diabetes mellitus with diabetic polyneuropathy (8) Localized edema Status: Chronic Current Visit: Yes Code(s): R60.0 - Localized edema (9) Malnutrition Status: Chronic Current Visit: Yes Code(s): E46 - Unspecified protein-calorie malnutrition Type of Wound Chief Complaint: right and left Leg ulcers and right foot ulcer History of Wound: Mr. Arguello is a 63-year-old male with multiple comorbidities follows up for delayed healing ulcers to the right foot as well as bilateral legs. It is noted he previously had widespread debridements and fasciotomies performed to bilateral lower extremities secondary to life-threatening and limb threatening infection; this was previously performed at [facility]. He continues to follow with Dr. Gilbert for her knee ulcers, and I saw him today for his other ulcer sites. He has been applying Santyl to both the wounds, Aquacel to leg ulcers, and wound VAC to right foot defect with quality and size reduction improvement. He denies chills, fever or otherwise feeling of unwell. He presents today with his . He refuses advanced wound care product application. He refuses hyperbaric oxygen therapy treatment. Progress of Wound: Improving lower extremities - Physical Exam Vital Signs Temp Pulse Resp BP 95.7 F L 99 16 122/75 H 10/05/18 09:18 10/05/18 09:18 10/05/18 09:18 10/05/18 09:18 General: Alert, Oriented x3, Cooperative Extremities: No cyanosis, Capillary Refill Less than 3 Seconds, No Calf Tenderness - Negative Errol and Lobato bilateral, Diminished Peripheral Pulses, Edema - Mild bilateral, - - Open second and third ray resection right foot Skin: Ulcer/ Wound - No purulence, erythema, streaking, odor, infection, eschar, exposed bone noted today. There is decreased exposed tendon tissue. Peripheral epithelialization is noted to all sites. His peripheral skin is atrophic and hairless. Wound Measurements and Assessment WC - Nurse 1 - General Ulcer Measurement Start: 09/28/18 09:15 Freq: Status: Active Protocol: Activity Type Activity Date Activity User E-Sign Co-Sign Detail Recorded Client Recorded Date Recorded By Document 10/05/18 09:18 [id number] 10/05/18 09:39 10/05/18 09:18 Wound Center Nurse 1 [Ulcer Assessment] #10 right heel -Combined with other wound No -Current Size (cm) - Length 0.5 -Current Size (cm) - Width 0.9 -Current Size (cm) - Depth 0.2 -Total Square Cm 0.45 -Photo Taken No -Epithelialization Small 1-33% -Tunneling No -Undermining/Tunneling No -Circular Undermining No -Exudate Amt Small (1-33%) -Exudate Type Serosanguineous -Wound Margin Flat & Intact -Granulation Amt None Present (0 %) -Slough/Fibrin Yes -Necrosis Amt Large (67-100%) -Necrotic Tissue Type Adherent Slough -Structure Exposed N/A -Texture (Lisa-wound Skin Appearance) Assessed Localized Edema -Moisture (Lisa-wound Skin Appearance Assessed ) Dry/Scaly -Color (Lisa-wound Skin Appearance) Assessed -Temperature (Lisa-wound Skin No Abnormality Appearance) (Pt Warm) -Tenderness on Palpation (Lisa-wound No Skin Appearance) -Ulcer Cleansing Wound Cleanser -Foul Odor after Cleansing No -Anesthetic Used 5% Lidocaine Gel 9.L knee -Combined with other wound No -Current Size (cm) - Length 1.2 -Current Size (cm) - Width 1.5 -Current Size (cm) - Depth 0.2 -Total Square Cm 1.80 -Photo Taken No -Epithelialization Small 1-33% -Tunneling No -Undermining/Tunneling No -Circular Undermining No -Exudate Amt Small (1-33%) -Exudate Type Serosanguineous -Wound Margin Flat & Intact -Granulation Amt Medium (34-66%) -Granulation Quality Redan -Slough/Fibrin Yes -Necrosis Amt Small (1-33%) -Necrotic Tissue Type Adherent Slough -Structure Exposed N/A -Texture (Lisa-wound Skin Appearance) Assessed Localized Edema -Moisture (Lisa-wound Skin Appearance Assessed ) Dry/Scaly -Color (Lisa-wound Skin Appearance) Assessed -Temperature (Lisa-wound Skin No Abnormality Appearance) (Pt Warm) -Tenderness on Palpation (Lisa-wound No Skin Appearance) -Ulcer Cleansing Wound Cleanser -Foul Odor after Cleansing No -Anesthetic Used 5% Lidocaine Gel #8 r Knee -Combined with other wound No -Current Size (cm) - Length 0.3 -Current Size (cm) - Width 0.6 -Current Size (cm) - Depth 0.1 -Total Square Cm 0.18 -Photo Taken No -Epithelialization Small 1-33% -Tunneling No -Undermining/Tunneling No -Circular Undermining No -Exudate Amt Small (1-33%) -Exudate Type Serosanguineous -Wound Margin Flat & Intact -Granulation Amt Medium (34-66%) -Granulation Quality Redan -Slough/Fibrin Yes -Necrosis Amt Small (1-33%) -Necrotic Tissue Type Adherent Slough -Structure Exposed N/A -Texture (Lisa-wound Skin Appearance) Assessed -Moisture (Lisa-wound Skin Appearance Assessed ) Dry/Scaly -Color (Lisa-wound Skin Appearance) Assessed -Temperature (Lisa-wound Skin No Abnormality Appearance) (Pt Warm) -Tenderness on Palpation (Lisa-wound No Skin Appearance) -Ulcer Cleansing Wound Cleanser -Foul Odor after Cleansing No -Anesthetic Used 5% Lidocaine Gel #6 L Post -Combined with other wound No -Current Size (cm) - Length 14.2 -Current Size (cm) - Width 2.6 -Current Size (cm) - Depth 0.2 -Total Square Cm 36.92 -Photo Taken No -Epithelialization Medium 34-66% -Tunneling No -Undermining/Tunneling No -Circular Undermining No -Exudate Amt Small (1-33%) -Exudate Type Serosanguineous -Wound Margin Flat & Intact -Granulation Amt Medium (34-66%) -Granulation Quality Red -Slough/Fibrin Yes -Necrosis Amt Small (1-33%) -Necrotic Tissue Type Adherent Slough -Structure Exposed N/A -Texture (Lisa-wound Skin Appearance) Assessed Localized Edema -Moisture (Lisa-wound Skin Appearance Assessed ) Dry/Scaly -Color (Lisa-wound Skin Appearance) Assessed -Temperature (Lisa-wound Skin No Abnormality Appearance) (Pt Warm) -Tenderness on Palpation (Lisa-wound No Skin Appearance) -Ulcer Cleansing Wound Cleanser -Foul Odor after Cleansing No -Anesthetic Used 5% Lidocaine Gel #5 R Lat LE -Combined with other wound No -Current Size (cm) - Length 2.5 -Current Size (cm) - Width 2.0 -Current Size (cm) - Depth 0.2 -Total Square Cm 5.00 -Photo Taken No -Epithelialization Large 67-100% -Tunneling No -Undermining/Tunneling No -Circular Undermining No -Exudate Amt Medium (34-66%) -Exudate Type Serosanguineous -Wound Margin Flat & Intact -Granulation Amt Large (67-100%) -Granulation Quality Redan -Slough/Fibrin Yes -Necrosis Amt Small (1-33%) -Necrotic Tissue Type Adherent Slough -Structure Exposed N/A -Texture (Lisa-wound Skin Appearance) Assessed Localized Edema -Moisture (Lisa-wound Skin Appearance Assessed ) Dry/Scaly -Color (Lisa-wound Skin Appearance) Assessed -Temperature (Lisa-wound Skin No Abnormality Appearance) (Pt Warm) -Tenderness on Palpation (Lisa-wound No Skin Appearance) -Ulcer Cleansing Wound Cleanser -Foul Odor after Cleansing No -Anesthetic Used 5% Lidocaine Gel #4 R post LE -Combined with other wound No -Current Size (cm) - Length 3.2 -Current Size (cm) - Width 1 -Current Size (cm) - Depth 0.3 -Total Square Cm 3.2 -Photo Taken No -Epithelialization Medium 34-66% -Tunneling No -Undermining/Tunneling No -Circular Undermining No -Exudate Amt Medium (34-66%) -Exudate Type Serosanguineous -Wound Margin Flat & Intact -Granulation Amt Medium (34-66%) -Granulation Quality Red -Slough/Fibrin Yes -Necrosis Amt Medium (34-66%) -Necrotic Tissue Type Adherent Slough -Structure Exposed N/A -Texture (Lisa-wound Skin Appearance) Assessed Localized Edema -Moisture (Lisa-wound Skin Appearance Assessed ) Dry/Scaly -Color (Lisa-wound Skin Appearance) Assessed -Temperature (Lisa-wound Skin No Abnormality Appearance) (Pt Warm) -Tenderness on Palpation (Lisa-wound No Skin Appearance) -Ulcer Cleansing Wound Cleanser -Foul Odor after Cleansing No -Anesthetic Used 5% Lidocaine Gel #3 R Med LE -Combined with other wound No -Current Size (cm) - Length 1.1 -Current Size (cm) - Width 0.9 -Current Size (cm) - Depth 0.2 -Total Square Cm 0.99 -Photo Taken No -Epithelialization Small 1-33% -Tunneling No -Undermining/Tunneling No -Circular Undermining No -Exudate Amt Small (1-33%) -Exudate Type Serosanguineous -Wound Margin Flat & Intact -Granulation Amt Large (67-100%) -Granulation Quality Redan -Slough/Fibrin Yes -Necrosis Amt Small (1-33%) -Necrotic Tissue Type Adherent Slough -Structure Exposed N/A -Texture (Lisa-wound Skin Appearance) Assessed Localized Edema -Moisture (Lisa-wound Skin Appearance Assessed ) Dry/Scaly -Color (Lisa-wound Skin Appearance) Assessed -Temperature (Lisa-wound Skin No Abnormality Appearance) (Pt Warm) -Tenderness on Palpation (Lisa-wound No Skin Appearance) -Ulcer Cleansing Wound Cleanser -Foul Odor after Cleansing No -Anesthetic Used 5% Lidocaine Gel #2 R [place] Cluster -Combined with other wound No -Current Size (cm) - Length 22 -Current Size (cm) - Width 3.7 -Current Size (cm) - Depth 0.2 -Total Square Cm 81.4 -Photo Taken No -Epithelialization Small 1-33% -Tunneling No -Undermining/Tunneling No -Circular Undermining No -Exudate Amt Small (1-33%) -Exudate Type Serosanguineous -Wound Margin Flat & Intact -Granulation Amt Large (67-100%) -Granulation Quality Red -Slough/Fibrin Yes -Necrosis Amt Medium (34-66%) -Necrotic Tissue Type Adherent Slough -Structure Exposed N/A -Texture (Lisa-wound Skin Appearance) Assessed Localized Edema -Moisture (Lisa-wound Skin Appearance Assessed ) Dry/Scaly -Color (Lisa-wound Skin Appearance) Assessed Hemosiderin Staining -Temperature (Lisa-wound Skin No Abnormality Appearance) (Pt Warm) -Tenderness on Palpation (Lisa-wound No Skin Appearance) -Ulcer Cleansing Wound Cleanser -Foul Odor after Cleansing No -Anesthetic Used 5% Lidocaine Gel #1 R 2nd toe amp/Arch/ Med Ankle -Combined with other wound No -Current Size (cm) - Length 2.8 -Current Size (cm) - Width 0.7 -Current Size (cm) - Depth 0.8 -Total Square Cm 1.96 -Photo Taken No -Epithelialization Small 1-33% -Tunneling No -Undermining/Tunneling No -Circular Undermining No -Exudate Amt Medium (34-66%) -Exudate Type Serosanguineous -Wound Margin Flat & Intact -Granulation Amt Large (67-100%) -Granulation Quality Red -Slough/Fibrin Yes -Necrosis Amt Medium (34-66%) -Necrotic Tissue Type Adherent Slough -Structure Exposed N/A -Texture (Lisa-wound Skin Appearance) Assessed Localized Edema -Moisture (Lisa-wound Skin Appearance Assessed ) Dry/Scaly -Color (Lisa-wound Skin Appearance) Assessed -Temperature (Lisa-wound Skin No Abnormality Appearance) (Pt Warm) -Tenderness on Palpation (Lisa-wound No Skin Appearance) -Ulcer Cleansing Wound Cleanser -Foul Odor after Cleansing No -Anesthetic Used 5% Lidocaine Gel [Edema Assessment] -Lower Limb Edema Present Yes -Right Calf (cm) 35.0 -Right Ankle (cm) 21.8 -Left Calf (cm) 33.7 -Left Ankle (cm) 20.8 WC - Nurse 2 - General Ulcer CM Notes Start: 09/28/18 09:15 Freq: Status: Active Protocol: Activity Type Activity Date Activity User E-Sign Co-Sign Detail Recorded Client Recorded Date Recorded By Document 10/05/18 10:10 CS [id number] 10/05/18 10:11 10/05/18 10:10 Wound Center Nurse 2 [Procedure/Treatment] 9.L knee -Time 10:10 -Correct Patient Yes -Correct Side, Site, Position Yes -Correct Procedure Yes -Procedure Performed Yes -Type of Procedure Debridement -Clinical Debridement Subcutaneous -Post Debridement Size (cm) - Length 0.4 -Post Debridement Size (cm) - Width 0.5 -Post Debridement Size (cm) - Depth 0.2 -Total Square Cm 0.20 -Wound/Ulcer Outcome Not Healed -Ulcer Cleansing Rinsed/ Irrigated with Saline -Foul Odor after Cleansing No -Bioengineered Tissue No -Bleeding Controlled with NA -Treatment Response Procedure Tolerated Well #8 r Knee -Time 10:10 -Correct Patient Yes -Correct Side, Site, Position Yes -Correct Procedure Yes -Procedure Performed Yes -Type of Procedure Debridement -Clinical Debridement Subcutaneous -Post Debridement Size (cm) - Length 1 -Post Debridement Size (cm) - Width 1.2 -Post Debridement Size (cm) - Depth 0.2 -Total Square Cm 1.2 -Wound/Ulcer Outcome Not Healed -Ulcer Cleansing Not Cleansed -Foul Odor after Cleansing No -Bioengineered Tissue No -Bleeding Controlled with NA -Treatment Response Procedure Tolerated Well [See Physician Procedure note for Specifics] Musculoskeletal: No Tenderness to Palpation of Joints or Extremities, Muscle Wasting Neurological: - - Lack of epicritic sensation light touch bilateral lower extremities Psych/Mental Status: Normal Affect, Appropriate Debridement Note Post-Debridement Measurements/Treatment WC - Nurse 2 - General Ulcer CM Notes Start: 09/28/18 09:15 Freq: Status: Active Protocol: Activity Type Activity Date Activity User E-Sign Co-Sign Detail Recorded Client Recorded Date Recorded By Document 09/28/18 10:06 TM [id number] 09/28/18 10:15 TM Document 09/28/18 10:41 MW [id number] 09/28/18 10:51 MW Document 10/05/18 10:10 [id number] 10/05/18 10:11 09/28/18 09/28/18 10/05/18 10:06 10:41 10:10 Wound Center Nurse 2 #10 right heel -Time 10:13 -Correct Patient Yes -Correct Side, Site, Position Yes -Correct Procedure Yes -Procedure Performed Yes -Type of Procedure Debridement -Clinical Debridement Subcutaneous -Post Debridement Size (cm) - Length 1.4 -Post Debridement Size (cm) - Width 1.0 -Post Debridement Size (cm) - Depth 0.1 -Total Square Cm 1.40 -Wound/Ulcer Outcome Not Healed -Ulcer Cleansing Rinsed/ Irrigated with Saline -Foul Odor after Cleansing No -Bioengineered Tissue No -Topical Lidocaine (%) 4 -Bleeding Controlled with Pressure -Treatment Response Procedure Tolerated Well 9.L knee -Time 10:42 10:10 -Correct Patient Yes Yes -Correct Side, Site, Position Yes Yes -Correct Procedure Yes Yes -Procedure Performed Yes Yes -Type of Procedure Debridement Debridement -Clinical Debridement Subcutaneous Subcutaneous -Post Debridement Size (cm) - Length 0.2 0.4 -Post Debridement Size (cm) - Width 0.6 0.5 -Post Debridement Size (cm) - Depth 0.1 0.2 -Total Square Cm 0.12 0.20 -Wound/Ulcer Outcome Not Healed Not Healed -Ulcer Cleansing Rinsed/ Rinsed/ Irrigated with Irrigated with Saline Saline -Foul Odor after Cleansing No No -Bioengineered Tissue No No -Bleeding Controlled with Pressure NA -Treatment Response Procedure Procedure Tolerated Well Tolerated Well #8 r Knee -Time 10:42 10:10 -Correct Patient Yes Yes -Correct Side, Site, Position Yes Yes -Correct Procedure Yes Yes -Procedure Performed Yes Yes -Type of Procedure Debridement Debridement -Clinical Debridement Subcutaneous Subcutaneous -Post Debridement Size (cm) - Length 1.2 1 -Post Debridement Size (cm) - Width 1.7 1.2 -Post Debridement Size (cm) - Depth 0.3 0.2 -Total Square Cm 2.04 1.2 -Wound/Ulcer Outcome Not Healed Not Healed -Ulcer Cleansing Rinsed/ Not Cleansed Irrigated with Saline -Foul Odor after Cleansing No No -Bioengineered Tissue No No -Bleeding Controlled with Pressure NA -Treatment Response Procedure Procedure Tolerated Well Tolerated Well #6 L Post -Time 10:09 -Correct Patient Yes -Correct Side, Site, Position Yes -Correct Procedure Yes -Procedure Performed Yes -Type of Procedure Debridement -Clinical Debridement Muscle -Post Debridement Size (cm) - Length 21.1 -Post Debridement Size (cm) - Width 2.1 -Post Debridement Size (cm) - Depth 0.5 -Total Square Cm 44.31 -Wound/Ulcer Outcome Not Healed -Ulcer Cleansing Rinsed/ Irrigated with Saline -Foul Odor after Cleansing No -Bioengineered Tissue No -Topical Lidocaine (%) 4 -Bleeding Controlled with Pressure -Treatment Response Procedure Tolerated Well #5 R Lat LE -Time 10:09 -Correct Patient Yes -Correct Side, Site, Position Yes -Correct Procedure Yes -Procedure Performed Yes -Type of Procedure Debridement -Clinical Debridement Subcutaneous -Post Debridement Size (cm) - Length 3.2 -Post Debridement Size (cm) - Width 1.8 -Post Debridement Size (cm) - Depth 0.1 -Total Square Cm 5.76 -Wound/Ulcer Outcome Not Healed -Ulcer Cleansing Rinsed/ Irrigated with Saline -Foul Odor after Cleansing No -Bioengineered Tissue No -Topical Lidocaine (%) 4 -Bleeding Controlled with Pressure -Treatment Response Procedure Tolerated Well #4 R post LE -Time 10:10 -Correct Patient Yes -Correct Side, Site, Position Yes -Correct Procedure Yes -Procedure Performed Yes -Type of Procedure Debridement -Clinical Debridement Subcutaneous -Post Debridement Size (cm) - Length 1.3 -Post Debridement Size (cm) - Width 1.1 -Post Debridement Size (cm) - Depth 0.1 -Total Square Cm 1.43 -Wound/Ulcer Outcome Not Healed -Ulcer Cleansing Rinsed/ Irrigated with Saline -Foul Odor after Cleansing No -Bioengineered Tissue No -Topical Lidocaine (%) 4 -Bleeding Controlled with Pressure -Treatment Response Procedure Tolerated Well #3 R Med LE -Time 10:10 -Correct Patient Yes -Correct Side, Site, Position Yes -Correct Procedure Yes -Procedure Performed Yes -Type of Procedure Debridement -Clinical Debridement Subcutaneous -Post Debridement Size (cm) - Length 3.6 -Post Debridement Size (cm) - Width 1.6 -Post Debridement Size (cm) - Depth 0.3 -Total Square Cm 5.76 -Wound/Ulcer Outcome Not Healed -Ulcer Cleansing Rinsed/ Irrigated with Saline -Foul Odor after Cleansing No -Bioengineered Tissue No -Topical Lidocaine (%) 4 -Bleeding Controlled with Pressure -Treatment Response Procedure Tolerated Well #2 R [place] Cluster -Time 10:11 -Correct Patient Yes -Correct Side, Site, Position Yes -Correct Procedure Yes -Procedure Performed Yes -Type of Procedure Debridement -Clinical Debridement Subcutaneous -Post Debridement Size (cm) - Length 15.6 -Post Debridement Size (cm) - Width 3.9 -Post Debridement Size (cm) - Depth 0.1 -Total Square Cm 60.84 -Wound/Ulcer Outcome Not Healed -Ulcer Cleansing Rinsed/ Irrigated with Saline -Foul Odor after Cleansing No -Bioengineered Tissue No -Topical Lidocaine (%) 4 -Bleeding Controlled with Pressure -Treatment Response Procedure Tolerated Well #1 R 2nd toe amp/Arch/ Med Ankle -Time 10:11 -Correct Patient Yes -Correct Side, Site, Position Yes -Correct Procedure Yes -Procedure Performed Yes -Type of Procedure Debridement -Clinical Debridement Subcutaneous -Post Debridement Size (cm) - Length 29.1 -Post Debridement Size (cm) - Width 2.9 -Post Debridement Size (cm) - Depth 1.3 -Total Square Cm 84.39 -Wound/Ulcer Outcome Not Healed -Ulcer Cleansing Rinsed/ Irrigated with Saline -Foul Odor after Cleansing No -Bioengineered Tissue No -Topical Lidocaine (%) 4 -Bleeding Controlled with Pressure -Treatment Response Procedure Tolerated Well Pain Scale: 0-10 Numeric Is Patient Pain Free? Yes Wound debrided: heel Laterality: Right Wound Grade/Stage: grade 1 Type of Debridement: Excisional debridement Anesthesia Used: 4% Lidocaine Solution Depth: in the subcutaneous layer Percentage of wound debrided: 100 Instrument Used: #15 blade Tissue Removed: fibrous, devitalized subcutaneous, biofilm, slough Severity: Fat Layer Exposed Amount of bleeding with debridement: Mild Bleeding Controlled with: Pressure Patient tolerated procedure well - Additional Wound Wound debrided: foot amputation / drainage / debridement site that extends to the ankle Laterality: Right Wound Grade/Stage: grade 3 Type of Debridement: Excisional debridement Anesthesia Used: 5% Lidocaine Gel Depth: in the subcutaneous layer Percentage of wound debrided: 100 Instrument Used: #15 blade Tissue Removed: fibrous, devitalized subcutaneous, biofilm, slough, undermined plantar part Severity: Fat Layer Exposed Amount of bleeding with debridement: Mild Bleeding Controlled with: Pressure Patient tolerated procedure: Patient tolerated procedure well - Additional Wound Wound debrided: anterior leg (orellana) Laterality: Right Wound Grade/Stage: grade 1 Type of Debridement: Excisional debridement Anesthesia Used: 5% Lidocaine Gel Depth: in the subcutaneous layer Percentage of wound debrided: 100 Instrument Used: #15 blade Tissue Removed: fibrous, devitalized subcutaneous, biofilm, slough Severity: Fat Layer Exposed Amount of bleeding with debridement: Mild Bleeding Controlled with: Pressure Patient tolerated procedure: Patient tolerated procedure well - Additional Wound Wound debrided: medial leg Laterality: Right Wound Grade/Stage: grade 1 Type of Debridement: Excisional debridement Anesthesia Used: 5% Lidocaine Gel Depth: in the subcutaneous layer Percentage of wound debrided: 100 Instrument Used: #15 blade Tissue Removed: fibrous, devitalized subcutaneous, biofilm, slough Severity: Fat Layer Exposed Amount of bleeding with debridement: Mild Bleeding Controlled with: Pressure Patient tolerated procedure: Patient tolerated procedure well - Additional Wound Wound debrided: lateral leg Laterality: Right Wound Grade/Stage: grade 1 Type of Debridement: Excisional debridement Anesthesia Used: 5% Lidocaine Gel Depth: in the subcutaneous layer Percentage of wound debrided: 100 Instrument Used: #15 blade Tissue Removed: fibrous, devitalized subcutaneous, biofilm, slough Severity: Fat Layer Exposed Amount of bleeding with debridement: Mild Bleeding Controlled with: Pressure Patient tolerated procedure: Patient tolerated procedure well - Additional Wound Wound debrided: posterior leg Laterality: Right Wound Grade/Stage: grade 1 Type of Debridement: Excisional debridement Anesthesia Used: 5% Lidocaine Gel Depth: in the subcutaneous layer Percentage of wound debrided: 100 Instrument Used: #15 blade Tissue Removed: fibrous, devitalized subcutaneous, biofilm, slough Severity: Fat Layer Exposed Amount of bleeding with debridement: Mild Bleeding Controlled with: Pressure Patient tolerated procedure: Patient tolerated procedure well - Additional Wound Wound debrided: posterior leg Laterality: Left Wound Grade/Stage: grade 3 Type of Debridement: Excisional debridement Anesthesia Used: 5% Lidocaine Gel Depth: in the subcutaneous layer Percentage of wound debrided: 100 Instrument Used: #15 blade Tissue Removed: fibrous, devitalized subcutaneous, biofilm, slough Severity: Fat Layer Exposed Amount of bleeding with debridement: Mild Bleeding Controlled with: Pressure Patient tolerated procedure: Patient tolerated procedure well - Additional Wound Wound debrided: lateral leg Laterality: Left Wound Grade/Stage: grade 1 Type of Debridement: Excisional debridement Anesthesia Used: 5% Lidocaine Gel Depth: in the subcutaneous layer Percentage of wound debrided: 100 Instrument Used: #15 blade Tissue Removed: fibrous, devitalized subcutaneous, biofilm, slough Severity: Fat Layer Exposed Amount of bleeding with debridement: Mild Bleeding Controlled with: Pressure Patient tolerated procedure: Patient tolerated procedure well Assessment/Plan Active Problems (Last Updated 09/28/18 @ 12:41 by Geraldine Steele) Ulcer of right foot with fat layer exposed (Chronic) Delayed wound healing (Chronic) 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 (Chronic) Ulcer of right lower extremity with fat layer exposed (Chronic) Ulcer of left lower extremity with fat layer exposed (Chronic) Type 2 diabetes mellitus with diabetic polyneuropathy (Chronic) Localized edema (Chronic) Malnutrition (Chronic) Assessment: Open second and third ray resection secondary to 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 Diabetic neuropathy. Malnutrition suspected. 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 Delayed healing. Gait impairment and fall risk. Other comorbidities, right knee ulcer, tendon exposed (Dr. Gilbert managed), left knee ulcer (Dr. Gilbert managed) Plan: I reviewed and discussed his case with the patient and the patient's . Subcutaneous debridements were performed as noted in the clinical panel. I Recommended changing the dressings daily with shelter facility staff assistance with santyl to knees (per Dr. Gilbert) and aquacel ag to the leg ulcers, santyl to devitalized tendon zones, and wound vac to the right foot. I also recommend continued wound VAC changes to the right foot that extends to the medial ankle every 3 days. It is noted that this foot site has some bridging epithelialization noted to the center and is now broken into 2 regions; the wound VAC was bridged over the site. He was reassured no worsening status or local section is not notedtoday. The ulcer sites have improved quality with granulation tissue. He has completed a 6 weeks of IV antibiotic of Unasyn. He was reassured no local or systemic signs of illness or apparent today. Infectious disease was on consult during his last [facility] admission. I recommend he avoids laying directly on his wounds to reduce pressure, and I was concerned about his perfusion to his limbs. He had an arterial Doppler scheduled with Dr. Morgan's staff on August 02, 2018 and overall perfusion was confirmed; additional intervention or workup was not recommended. It is also noted that he did have venous Doppler performed with reflux evaluation on 2007 cm. He did not have evidence of deep venous thrombosis or venous insufficiency at that time; the vessels were compressible. To continue with nutritional supplementation optimize healing; I recommend Juan. I recommend he sustained from smoking and alcohol activities to optimize healing as well. His workup for vasculitis and underlying autoimmune disorder is also pending. A punch biopsy was sent during his last surgical intervention on June 10 and this demonstrated inflammatory changes without malignancy. He had initial screening labs and so far he has a negative RA titer, HL of the 27, KEVIN, anti-CCP, and rheumatoid factor. Several his antibody screenings were not reportable. I have communicated this workup with his current managing physician at [facility], Dr. Perdomo, to see if additional recommendations or workup is indicated. He is home now. I will further forward this information along to his primary care physician, Dr. Sparks. Hyperbaric oxygen therapy was recommended and it is noted his ejection fraction was most recently 50%. Time was spent last week educating him on this process and he refuses proceeding forward at this time. He understands his goals are infection prevention, pain control, and functional progression. I answered all his questions. Dr. Gilbert continues to manage his bilateral knee ulcers including debridements and traditional wound care plan. I recommend same-day surgery versa jet debridement with application of advanced wound care products including epi cord, amnio fill, and amnio fix product line derived from amniotic cord cells and umbilical cord cells. The benefits, indications, planned procedure, possible benefits risks and anticipated healing time is were discussed. He understands this is a staged procedure and often serial applications are required. He obtained his clearance from Dr. Sparks and an additional Dr. Ponce cardiac evaluation preoperative was recommended. I reviewed the urgency with healing these wounds in a timely manner and encouraged him to reconsider this. He refuses at this time. I answered all of his questions. Additional amputation of the right foot is not planned due to his fairly nonambulatory status. Smoking cessation was discussed in detail again today and compliance is imperative to optimize healing of surgical success. I recommend further follow-up at the wound care center 1 week with me, or call sooner if he has any questions. Compliance at this advanced wound care center was reviewed. He understands additional palliative care programs are an option if he does not wish to proceed with advanced wound care opportunities that has been recommended.
--- NOTE | 2018-10-05 10:52 | PCM.WC.PN ---
(1) Ulcer of left lower extremity with fat layer exposed Status: Chronic Current Visit: Yes Code(s): L97.922 - Non-pressure chronic ulcer of unspecified part of left lower leg with fat layer exposed (2) Ulcer of right lower extremity with fat layer exposed Status: Chronic Current Visit: Yes Code(s): L97.912 - Non-pressure chronic ulcer of unspecified part of right lower leg with fat layer exposed (3) Type 2 diabetes mellitus with diabetic polyneuropathy Status: Chronic Current Visit: Yes Code(s): E11.42 - Type 2 diabetes mellitus with diabetic polyneuropathy Type of Wound Chief Complaint: right and left Leg ulcers and right foot ulcer History of Wound: Mr. Arguello is a 63-year-old male with multiple comorbidities follows up for delayed healing ulcers to the right foot as well as bilateral legs. It is noted he previously had widespread debridements and fasciotomies performed to bilateral lower extremities secondary to life-threatening and limb threatening infection; this was previously performed at [facility]. He continues to follow with Dr. Gilbert for her knee ulcers, and I saw him today for his other ulcer sites. He has been applying Santyl to both the wounds, Aquacel to leg ulcers, and wound VAC to right foot defect with quality and size reduction improvement. He denies chills, fever or otherwise feeling of unwell. He presents today with his . He refuses advanced wound care product application. He refuses hyperbaric oxygen therapy treatment. Progress of Wound: Improving Knee ulcers. - Physical Exam Vital Signs Temp Pulse Resp BP 95.7 F L 99 16 122/75 H 10/05/18 09:18 10/05/18 09:18 10/05/18 09:18 10/05/18 09:18 General: Alert, Oriented x3, Cooperative, No apparent distress HEENT: Atraumatic Oral: Moist Mucosa Neck: Supple Lungs: Normal air movement Extremities: No cyanosis, Edema Skin: Ulcer/ Wound Wound Measurements and Assessment WC - Nurse 1 - General Ulcer Measurement Start: 09/28/18 09:15 Freq: Status: Active Protocol: Activity Type Activity Date Activity User E-Sign Co-Sign Detail Recorded Client Recorded Date Recorded By Document 10/05/18 09:18 JF [id number] 10/05/18 09:39 JAMAL 10/05/18 09:18 Wound Center Nurse 1 [Ulcer Assessment] #10 right heel -Combined with other wound No -Current Size (cm) - Length 0.5 -Current Size (cm) - Width 0.9 -Current Size (cm) - Depth 0.2 -Total Square Cm 0.45 -Photo Taken No -Epithelialization Small 1-33% -Tunneling No -Undermining/Tunneling No -Circular Undermining No -Exudate Amt Small (1-33%) -Exudate Type Serosanguineous -Wound Margin Flat & Intact -Granulation Amt None Present (0 %) -Slough/Fibrin Yes -Necrosis Amt Large (67-100%) -Necrotic Tissue Type Adherent Slough -Structure Exposed N/A -Texture (Lisa-wound Skin Appearance) Assessed Localized Edema -Moisture (Lisa-wound Skin Appearance Assessed ) Dry/Scaly -Color (Lisa-wound Skin Appearance) Assessed -Temperature (Lisa-wound Skin No Abnormality Appearance) (Pt Warm) -Tenderness on Palpation (Lisa-wound No Skin Appearance) -Ulcer Cleansing Wound Cleanser -Foul Odor after Cleansing No -Anesthetic Used 5% Lidocaine Gel 9.L knee -Combined with other wound No -Current Size (cm) - Length 1.2 -Current Size (cm) - Width 1.5 -Current Size (cm) - Depth 0.2 -Total Square Cm 1.80 -Photo Taken No -Epithelialization Small 1-33% -Tunneling No -Undermining/Tunneling No -Circular Undermining No -Exudate Amt Small (1-33%) -Exudate Type Serosanguineous -Wound Margin Flat & Intact -Granulation Amt Medium (34-66%) -Granulation Quality [place] -Slough/Fibrin Yes -Necrosis Amt Small (1-33%) -Necrotic Tissue Type Adherent Slough -Structure Exposed N/A -Texture (Lisa-wound Skin Appearance) Assessed Localized Edema -Moisture (Lisa-wound Skin Appearance Assessed ) Dry/Scaly -Color (Lisa-wound Skin Appearance) Assessed -Temperature (Lisa-wound Skin No Abnormality Appearance) (Pt Warm) -Tenderness on Palpation (Lisa-wound No Skin Appearance) -Ulcer Cleansing Wound Cleanser -Foul Odor after Cleansing No -Anesthetic Used 5% Lidocaine Gel #8 r Knee -Combined with other wound No -Current Size (cm) - Length 0.3 -Current Size (cm) - Width 0.6 -Current Size (cm) - Depth 0.1 -Total Square Cm 0.18 -Photo Taken No -Epithelialization Small 1-33% -Tunneling No -Undermining/Tunneling No -Circular Undermining No -Exudate Amt Small (1-33%) -Exudate Type Serosanguineous -Wound Margin Flat & Intact -Granulation Amt Medium (34-66%) -Granulation Quality [place] -Slough/Fibrin Yes -Necrosis Amt Small (1-33%) -Necrotic Tissue Type Adherent Slough -Structure Exposed N/A -Texture (Lisa-wound Skin Appearance) Assessed -Moisture (Lisa-wound Skin Appearance Assessed ) Dry/Scaly -Color (Lisa-wound Skin Appearance) Assessed -Temperature (Lisa-wound Skin No Abnormality Appearance) (Pt Warm) -Tenderness on Palpation (Lisa-wound No Skin Appearance) -Ulcer Cleansing Wound Cleanser -Foul Odor after Cleansing No -Anesthetic Used 5% Lidocaine Gel #6 L Post -Combined with other wound No -Current Size (cm) - Length 14.2 -Current Size (cm) - Width 2.6 -Current Size (cm) - Depth 0.2 -Total Square Cm 36.92 -Photo Taken No -Epithelialization Medium 34-66% -Tunneling No -Undermining/Tunneling No -Circular Undermining No -Exudate Amt Small (1-33%) -Exudate Type Serosanguineous -Wound Margin Flat & Intact -Granulation Amt Medium (34-66%) -Granulation Quality Red -Slough/Fibrin Yes -Necrosis Amt Small (1-33%) -Necrotic Tissue Type Adherent Slough -Structure Exposed N/A -Texture (Lisa-wound Skin Appearance) Assessed Localized Edema -Moisture (Lisa-wound Skin Appearance Assessed ) Dry/Scaly -Color (Lisa-wound Skin Appearance) Assessed -Temperature (Lisa-wound Skin No Abnormality Appearance) (Pt Warm) -Tenderness on Palpation (Lisa-wound No Skin Appearance) -Ulcer Cleansing Wound Cleanser -Foul Odor after Cleansing No -Anesthetic Used 5% Lidocaine Gel #5 R Lat LE -Combined with other wound No -Current Size (cm) - Length 2.5 -Current Size (cm) - Width 2.0 -Current Size (cm) - Depth 0.2 -Total Square Cm 5.00 -Photo Taken No -Epithelialization Large 67-100% -Tunneling No -Undermining/Tunneling No -Circular Undermining No -Exudate Amt Medium (34-66%) -Exudate Type Serosanguineous -Wound Margin Flat & Intact -Granulation Amt Large (67-100%) -Granulation Quality [place] -Slough/Fibrin Yes -Necrosis Amt Small (1-33%) -Necrotic Tissue Type Adherent Slough -Structure Exposed N/A -Texture (Lisa-wound Skin Appearance) Assessed Localized Edema -Moisture (Lisa-wound Skin Appearance Assessed ) Dry/Scaly -Color (Lisa-wound Skin Appearance) Assessed -Temperature (Lisa-wound Skin No Abnormality Appearance) (Pt Warm) -Tenderness on Palpation (Lisa-wound No Skin Appearance) -Ulcer Cleansing Wound Cleanser -Foul Odor after Cleansing No -Anesthetic Used 5% Lidocaine Gel #4 R post LE -Combined with other wound No -Current Size (cm) - Length 3.2 -Current Size (cm) - Width 1 -Current Size (cm) - Depth 0.3 -Total Square Cm 3.2 -Photo Taken No -Epithelialization Medium 34-66% -Tunneling No -Undermining/Tunneling No -Circular Undermining No -Exudate Amt Medium (34-66%) -Exudate Type Serosanguineous -Wound Margin Flat & Intact -Granulation Amt Medium (34-66%) -Granulation Quality Red -Slough/Fibrin Yes -Necrosis Amt Medium (34-66%) -Necrotic Tissue Type Adherent Slough -Structure Exposed N/A -Texture (Lisa-wound Skin Appearance) Assessed Localized Edema -Moisture (Lisa-wound Skin Appearance Assessed ) Dry/Scaly -Color (Lisa-wound Skin Appearance) Assessed -Temperature (Lisa-wound Skin No Abnormality Appearance) (Pt Warm) -Tenderness on Palpation (Lisa-wound No Skin Appearance) -Ulcer Cleansing Wound Cleanser -Foul Odor after Cleansing No -Anesthetic Used 5% Lidocaine Gel #3 R Med LE -Combined with other wound No -Current Size (cm) - Length 1.1 -Current Size (cm) - Width 0.9 -Current Size (cm) - Depth 0.2 -Total Square Cm 0.99 -Photo Taken No -Epithelialization Small 1-33% -Tunneling No -Undermining/Tunneling No -Circular Undermining No -Exudate Amt Small (1-33%) -Exudate Type Serosanguineous -Wound Margin Flat & Intact -Granulation Amt Large (67-100%) -Granulation Quality [place] -Slough/Fibrin Yes -Necrosis Amt Small (1-33%) -Necrotic Tissue Type Adherent Slough -Structure Exposed N/A -Texture (Lisa-wound Skin Appearance) Assessed Localized Edema -Moisture (Lisa-wound Skin Appearance Assessed ) Dry/Scaly -Color (Lisa-wound Skin Appearance) Assessed -Temperature (Lisa-wound Skin No Abnormality Appearance) (Pt Warm) -Tenderness on Palpation (Lisa-wound No Skin Appearance) -Ulcer Cleansing Wound Cleanser -Foul Odor after Cleansing No -Anesthetic Used 5% Lidocaine Gel #2 R [place] Cluster -Combined with other wound No -Current Size (cm) - Length 22 -Current Size (cm) - Width 3.7 -Current Size (cm) - Depth 0.2 -Total Square Cm 81.4 -Photo Taken No -Epithelialization Small 1-33% -Tunneling No -Undermining/Tunneling No -Circular Undermining No -Exudate Amt Small (1-33%) -Exudate Type Serosanguineous -Wound Margin Flat & Intact -Granulation Amt Large (67-100%) -Granulation Quality Red -Slough/Fibrin Yes -Necrosis Amt Medium (34-66%) -Necrotic Tissue Type Adherent Slough -Structure Exposed N/A -Texture (Lisa-wound Skin Appearance) Assessed Localized Edema -Moisture (Lisa-wound Skin Appearance Assessed ) Dry/Scaly -Color (Lisa-wound Skin Appearance) Assessed Hemosiderin Staining -Temperature (Lisa-wound Skin No Abnormality Appearance) (Pt Warm) -Tenderness on Palpation (Lisa-wound No Skin Appearance) -Ulcer Cleansing Wound Cleanser -Foul Odor after Cleansing No -Anesthetic Used 5% Lidocaine Gel #1 R 2nd toe amp/Arch/ Med Ankle -Combined with other wound No -Current Size (cm) - Length 2.8 -Current Size (cm) - Width 0.7 -Current Size (cm) - Depth 0.8 -Total Square Cm 1.96 -Photo Taken No -Epithelialization Small 1-33% -Tunneling No -Undermining/Tunneling No -Circular Undermining No -Exudate Amt Medium (34-66%) -Exudate Type Serosanguineous -Wound Margin Flat & Intact -Granulation Amt Large (67-100%) -Granulation Quality Red -Slough/Fibrin Yes -Necrosis Amt Medium (34-66%) -Necrotic Tissue Type Adherent Slough -Structure Exposed N/A -Texture (Lisa-wound Skin Appearance) Assessed Localized Edema -Moisture (Lisa-wound Skin Appearance Assessed ) Dry/Scaly -Color (Lisa-wound Skin Appearance) Assessed -Temperature (Lisa-wound Skin No Abnormality Appearance) (Pt Warm) -Tenderness on Palpation (Lisa-wound No Skin Appearance) -Ulcer Cleansing Wound Cleanser -Foul Odor after Cleansing No -Anesthetic Used 5% Lidocaine Gel [Edema Assessment] -Lower Limb Edema Present Yes -Right Calf (cm) 35.0 -Right Ankle (cm) 21.8 -Left Calf (cm) 33.7 -Left Ankle (cm) 20.8 WC - Nurse 2 - General Ulcer CM Notes Start: 09/28/18 09:15 Freq: Status: Active Protocol: Activity Type Activity Date Activity User E-Sign Co-Sign Detail Recorded Client Recorded Date Recorded By Document 10/05/18 10:10 [id number] 10/05/18 10:11 10/05/18 10:10 Wound Center Nurse 2 [Procedure/Treatment] 9.L knee -Time 10:10 -Correct Patient Yes -Correct Side, Site, Position Yes -Correct Procedure Yes -Procedure Performed Yes -Type of Procedure Debridement -Clinical Debridement Subcutaneous -Post Debridement Size (cm) - Length 0.4 -Post Debridement Size (cm) - Width 0.5 -Post Debridement Size (cm) - Depth 0.2 -Total Square Cm 0.20 -Wound/Ulcer Outcome Not Healed -Ulcer Cleansing Rinsed/ Irrigated with Saline -Foul Odor after Cleansing No -Bioengineered Tissue No -Bleeding Controlled with NA -Treatment Response Procedure Tolerated Well #8 r Knee -Time 10:10 -Correct Patient Yes -Correct Side, Site, Position Yes -Correct Procedure Yes -Procedure Performed Yes -Type of Procedure Debridement -Clinical Debridement Subcutaneous -Post Debridement Size (cm) - Length 1 -Post Debridement Size (cm) - Width 1.2 -Post Debridement Size (cm) - Depth 0.2 -Total Square Cm 1.2 -Wound/Ulcer Outcome Not Healed -Ulcer Cleansing Not Cleansed -Foul Odor after Cleansing No -Bioengineered Tissue No -Bleeding Controlled with NA -Treatment Response Procedure Tolerated Well [See Physician Procedure note for Specifics] Musculoskeletal: No Muscle Wasting Neurological: Cranial nerves II-XII grossly intact Psych/Mental Status: Normal Affect Debridement Note Post-Debridement Measurements/Treatment WC - Nurse 2 - General Ulcer CM Notes Start: 09/28/18 09:15 Freq: Status: Active Protocol: Activity Type Activity Date Activity User E-Sign Co-Sign Detail Recorded Client Recorded Date Recorded By Document 09/28/18 10:06 TM [id number] 09/28/18 10:15 TM Document 09/28/18 10:41 MW [id number] 09/28/18 10:51 MW Document 10/05/18 10:10 CS [id number] 10/05/18 10:11 CS 09/28/18 09/28/18 10/05/18 10:06 10:41 10:10 Wound Center Nurse 2 #10 right heel -Time 10:13 -Correct Patient Yes -Correct Side, Site, Position Yes -Correct Procedure Yes -Procedure Performed Yes -Type of Procedure Debridement -Clinical Debridement Subcutaneous -Post Debridement Size (cm) - Length 1.4 -Post Debridement Size (cm) - Width 1.0 -Post Debridement Size (cm) - Depth 0.1 -Total Square Cm 1.40 -Wound/Ulcer Outcome Not Healed -Ulcer Cleansing Rinsed/ Irrigated with Saline -Foul Odor after Cleansing No -Bioengineered Tissue No -Topical Lidocaine (%) 4 -Bleeding Controlled with Pressure -Treatment Response Procedure Tolerated Well 9.L knee -Time 10:42 10:10 -Correct Patient Yes Yes -Correct Side, Site, Position Yes Yes -Correct Procedure Yes Yes -Procedure Performed Yes Yes -Type of Procedure Debridement Debridement -Clinical Debridement Subcutaneous Subcutaneous -Post Debridement Size (cm) - Length 0.2 0.4 -Post Debridement Size (cm) - Width 0.6 0.5 -Post Debridement Size (cm) - Depth 0.1 0.2 -Total Square Cm 0.12 0.20 -Wound/Ulcer Outcome Not Healed Not Healed -Ulcer Cleansing Rinsed/ Rinsed/ Irrigated with Irrigated with Saline Saline -Foul Odor after Cleansing No No -Bioengineered Tissue No No -Bleeding Controlled with Pressure NA -Treatment Response Procedure Procedure Tolerated Well Tolerated Well #8 r Knee -Time 10:42 10:10 -Correct Patient Yes Yes -Correct Side, Site, Position Yes Yes -Correct Procedure Yes Yes -Procedure Performed Yes Yes -Type of Procedure Debridement Debridement -Clinical Debridement Subcutaneous Subcutaneous -Post Debridement Size (cm) - Length 1.2 1 -Post Debridement Size (cm) - Width 1.7 1.2 -Post Debridement Size (cm) - Depth 0.3 0.2 -Total Square Cm 2.04 1.2 -Wound/Ulcer Outcome Not Healed Not Healed -Ulcer Cleansing Rinsed/ Not Cleansed Irrigated with Saline -Foul Odor after Cleansing No No -Bioengineered Tissue No No -Bleeding Controlled with Pressure NA -Treatment Response Procedure Procedure Tolerated Well Tolerated Well #6 L Post -Time 10:09 -Correct Patient Yes -Correct Side, Site, Position Yes -Correct Procedure Yes -Procedure Performed Yes -Type of Procedure Debridement -Clinical Debridement Muscle -Post Debridement Size (cm) - Length 21.1 -Post Debridement Size (cm) - Width 2.1 -Post Debridement Size (cm) - Depth 0.5 -Total Square Cm 44.31 -Wound/Ulcer Outcome Not Healed -Ulcer Cleansing Rinsed/ Irrigated with Saline -Foul Odor after Cleansing No -Bioengineered Tissue No -Topical Lidocaine (%) 4 -Bleeding Controlled with Pressure -Treatment Response Procedure Tolerated Well #5 R Lat LE -Time 10:09 -Correct Patient Yes -Correct Side, Site, Position Yes -Correct Procedure Yes -Procedure Performed Yes -Type of Procedure Debridement -Clinical Debridement Subcutaneous -Post Debridement Size (cm) - Length 3.2 -Post Debridement Size (cm) - Width 1.8 -Post Debridement Size (cm) - Depth 0.1 -Total Square Cm 5.76 -Wound/Ulcer Outcome Not Healed -Ulcer Cleansing Rinsed/ Irrigated with Saline -Foul Odor after Cleansing No -Bioengineered Tissue No -Topical Lidocaine (%) 4 -Bleeding Controlled with Pressure -Treatment Response Procedure Tolerated Well #4 R post LE -Time 10:10 -Correct Patient Yes -Correct Side, Site, Position Yes -Correct Procedure Yes -Procedure Performed Yes -Type of Procedure Debridement -Clinical Debridement Subcutaneous -Post Debridement Size (cm) - Length 1.3 -Post Debridement Size (cm) - Width 1.1 -Post Debridement Size (cm) - Depth 0.1 -Total Square Cm 1.43 -Wound/Ulcer Outcome Not Healed -Ulcer Cleansing Rinsed/ Irrigated with Saline -Foul Odor after Cleansing No -Bioengineered Tissue No -Topical Lidocaine (%) 4 -Bleeding Controlled with Pressure -Treatment Response Procedure Tolerated Well #3 R Med LE -Time 10:10 -Correct Patient Yes -Correct Side, Site, Position Yes -Correct Procedure Yes -Procedure Performed Yes -Type of Procedure Debridement -Clinical Debridement Subcutaneous -Post Debridement Size (cm) - Length 3.6 -Post Debridement Size (cm) - Width 1.6 -Post Debridement Size (cm) - Depth 0.3 -Total Square Cm 5.76 -Wound/Ulcer Outcome Not Healed -Ulcer Cleansing Rinsed/ Irrigated with Saline -Foul Odor after Cleansing No -Bioengineered Tissue No -Topical Lidocaine (%) 4 -Bleeding Controlled with Pressure -Treatment Response Procedure Tolerated Well #2 R [place] Cluster -Time 10:11 -Correct Patient Yes -Correct Side, Site, Position Yes -Correct Procedure Yes -Procedure Performed Yes -Type of Procedure Debridement -Clinical Debridement Subcutaneous -Post Debridement Size (cm) - Length 15.6 -Post Debridement Size (cm) - Width 3.9 -Post Debridement Size (cm) - Depth 0.1 -Total Square Cm 60.84 -Wound/Ulcer Outcome Not Healed -Ulcer Cleansing Rinsed/ Irrigated with Saline -Foul Odor after Cleansing No -Bioengineered Tissue No -Topical Lidocaine (%) 4 -Bleeding Controlled with Pressure -Treatment Response Procedure Tolerated Well #1 R 2nd toe amp/Arch/ Med Ankle -Time 10:11 -Correct Patient Yes -Correct Side, Site, Position Yes -Correct Procedure Yes -Procedure Performed Yes -Type of Procedure Debridement -Clinical Debridement Subcutaneous -Post Debridement Size (cm) - Length 29.1 -Post Debridement Size (cm) - Width 2.9 -Post Debridement Size (cm) - Depth 1.3 -Total Square Cm 84.39 -Wound/Ulcer Outcome Not Healed -Ulcer Cleansing Rinsed/ Irrigated with Saline -Foul Odor after Cleansing No -Bioengineered Tissue No -Topical Lidocaine (%) 4 -Bleeding Controlled with Pressure -Treatment Response Procedure Tolerated Well Pain Scale: 0-10 Numeric Is Patient Pain Free? Yes Wound debrided: Left Knee Wound Grade/Stage: Stage II Type of Debridement: Excisional debridement Anesthesia Used: 4% Lidocaine Solution Depth: Down to and including healthy tissue, in the subcutaneous layer Percentage of wound debrided: 100 Instrument Used: - - 2 mm Tissue Removed: Slough and devitalized tissue Severity: Fat Layer Exposed Amount of bleeding with debridement: Mild Bleeding Controlled with: Pressure Patient tolerated procedure well - Additional Wound Wound debrided: Right lower extremity Wound Grade/Stage: Stage II Type of Debridement: Excisional debridement Anesthesia Used: 4% Lidocaine Solution Depth: Down to and including healthy tissue, in the subcutaneous layer Percentage of wound debrided: 100 Instrument Used: 3mm curette Tissue Removed: Slough and devitalized tissue Severity: Fat Layer Exposed Amount of bleeding with debridement: Mild Bleeding Controlled with: Pressure Patient tolerated procedure: Patient tolerated procedure well Assessment/Plan Active Problems (Last Updated 09/28/18 @ 12:41 by Geraldine Steele) Ulcer of right foot with fat layer exposed (Chronic) Delayed wound healing (Chronic) 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 (Chronic) Ulcer of right lower extremity with fat layer exposed (Chronic) Ulcer of left lower extremity with fat layer exposed (Chronic) Type 2 diabetes mellitus with diabetic polyneuropathy (Chronic) Localized edema (Chronic) Malnutrition (Chronic) Assessment: Open second and third ray resection secondary to 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 Diabetic neuropathy. Malnutrition suspected. 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 Delayed healing. Gait impairment and fall risk. Other comorbidities, right knee ulcer, tendon exposed (Dr. Gilbert managed), left knee ulcer (Dr. Gilbert managed) Plan: Better improvement in the knee ulcers noted today. Debridement done as documented above, procedure was well tolerated. Continue Alana and leave in place x 3 days. Change on Wednesday and then on Wednesday during his nurse visit. Continue increased protein intake. Elevate lower extremities. Avoid idle standing. Other management as per Dr. Gruber. Follow-up in 1 week. This note was generated with [employer] software. It may contain incorrect words, spelling, and punctuation that were not noted in checking the note before signing.
[2018-10-12 08:41] VITALS: BP 127/89; PULSE 103; RESP 16; TEMP 35
--- NOTE | 2018-10-12 10:11 | PCM.WC.PN ---
(1) Ulcer of left lower extremity with fat layer exposed Status: Chronic Current Visit: Yes Code(s): L97.922 - Non-pressure chronic ulcer of unspecified part of left lower leg with fat layer exposed (2) Ulcer of right lower extremity with fat layer exposed Status: Chronic Current Visit: Yes Code(s): L97.912 - Non-pressure chronic ulcer of unspecified part of right lower leg with fat layer exposed (3) Type 2 diabetes mellitus with diabetic polyneuropathy Status: Chronic Current Visit: Yes Code(s): E11.42 - Type 2 diabetes mellitus with diabetic polyneuropathy Type of Wound Chief Complaint: right and left Leg ulcers and right foot ulcer History of Wound: Mr. Arguello is a 63-year-old male with multiple comorbidities follows up for delayed healing ulcers to the right foot as well as bilateral legs. It is noted he previously had widespread debridements and fasciotomies performed to bilateral lower extremities secondary to life-threatening and limb threatening infection; this was previously performed at [facility]. He continues to follow with Dr. Gilbert for her knee ulcers, and I saw him today for his other ulcer sites. He has been applying Santyl to both the wounds, Aquacel to leg ulcers, and wound VAC to right foot defect with quality and size reduction improvement. He denies chills, fever or otherwise feeling of unwell. He presents today with his . He refuses advanced wound care product application. He refuses hyperbaric oxygen therapy treatment. Progress of Wound: Improving left knee ulcer. Stable right knee. Some pain over the past week. - Physical Exam Vital Signs Temp Pulse Resp BP 95 F L 103 H 16 127/89 H 10/12/18 08:41 10/12/18 08:41 10/12/18 08:41 10/12/18 08:41 General: Alert, Oriented x3, Cooperative, No apparent distress HEENT: Atraumatic Oral: Moist Mucosa Neck: Supple Lungs: Normal air movement Extremities: No cyanosis Skin: Ulcer/ Wound Wound Measurements and Assessment WC - Nurse 1 - General Ulcer Measurement Start: 09/28/18 09:15 Freq: Status: Active Protocol: Activity Type Activity Date Activity User E-Sign Co-Sign Detail Recorded Client Recorded Date Recorded By Document 10/12/18 08:41 [facility] [id number] 10/12/18 09:21 [facility] 10/12/18 08:41 Wound Center Nurse 1 [Ulcer Assessment] #10 right heel -Combined with other wound No -Current Size (cm) - Length 0.9 -Current Size (cm) - Width 0.7 -Current Size (cm) - Depth 0.2 -Total Square Cm 0.63 -Date of Last Picture (Recall this 10/12/18 field) -Photo Taken Yes -Epithelialization None Present -Tunneling No -Undermining/Tunneling No -Circular Undermining No -Exudate Amt Small (1-33%) -Exudate Type Serosanguineous -Wound Margin Distinct, Outline Attached -Granulation Amt Small (1-33%) -Granulation Quality Regent -Slough/Fibrin Yes -Necrosis Amt Large (67-100%) -Necrotic Tissue Type Adherent Slough -Texture (Lisa-wound Skin Appearance) Scarring -Moisture (Lisa-wound Skin Appearance Dry/Scaly ) -Color (Lisa-wound Skin Appearance) Assessed -Temperature (Lisa-wound Skin No Abnormality Appearance) (Pt Warm) -Tenderness on Palpation (Lisa-wound No Skin Appearance) -Ulcer Cleansing Wound Cleanser -Foul Odor after Cleansing No -Anesthetic Used 4% Lidocaine Solution 9.L knee -Combined with other wound No -Current Size (cm) - Length 0.2 -Current Size (cm) - Width 0.4 -Current Size (cm) - Depth 0.2 -Total Square Cm 0.08 -Date of Last Picture (Recall this 10/12/18 field) -Photo Taken Yes -Epithelialization None Present -Tunneling No -Undermining/Tunneling No -Circular Undermining No -Exudate Amt Small (1-33%) -Exudate Type Purulent -Wound Margin Distinct, Outline Attached -Granulation Amt Small (1-33%) -Granulation Quality Regent -Slough/Fibrin Yes -Necrosis Amt Large (67-100%) -Necrotic Tissue Type Adherent Slough -Texture (Lisa-wound Skin Appearance) Scarring -Moisture (Lisa-wound Skin Appearance Dry/Scaly ) -Color (Lisa-wound Skin Appearance) Assessed -Temperature (Lisa-wound Skin No Abnormality Appearance) (Pt Warm) -Tenderness on Palpation (Lisa-wound No Skin Appearance) -Ulcer Cleansing Rinsed/ Irrigated with Saline -Foul Odor after Cleansing No -Anesthetic Used 4% Lidocaine Solution #8 r Knee -Combined with other wound No -Current Size (cm) - Length 1.2 -Current Size (cm) - Width 1.4 -Current Size (cm) - Depth 0.3 -Total Square Cm 1.68 -Date of Last Picture (Recall this 10/12/18 field) -Photo Taken Yes -Epithelialization None Present -Undermining/Tunneling Yes -Undermining/Tunneling Starts (O' 6 clock) -Undermining/Tunneling Ends (O'clock) 3 -Maximum Distance (cm) 0.5 -Circular Undermining No -Exudate Amt Small (1-33%) -Exudate Type Purulent -Wound Margin Thickened -Granulation Amt Small (1-33%) -Granulation Quality Regent -Slough/Fibrin Yes -Necrosis Amt Large (67-100%) -Necrotic Tissue Type Adherent Slough -Texture (Lisa-wound Skin Appearance) Localized Edema Scarring -Moisture (Lisa-wound Skin Appearance Dry/Scaly ) -Color (Lisa-wound Skin Appearance) Assessed -Temperature (Lisa-wound Skin No Abnormality Appearance) (Pt Warm) -Tenderness on Palpation (Lisa-wound No Skin Appearance) -Ulcer Cleansing Wound Cleanser -Foul Odor after Cleansing No -Anesthetic Used 4% Lidocaine Solution #6 L Post -Combined with other wound No -Current Size (cm) - Length 21.5 -Current Size (cm) - Width 2.5 -Current Size (cm) - Depth 0.2 -Total Square Cm 53.75 -Date of Last Picture (Recall this 10/12/18 field) -Photo Taken Yes -Epithelialization None Present -Tunneling No -Undermining/Tunneling No -Circular Undermining No -Exudate Amt Small (1-33%) -Exudate Type Serosanguineous -Wound Margin Distinct, Outline Attached -Granulation Amt Large (67-100%) -Granulation Quality Regent -Slough/Fibrin Yes -Necrosis Amt Small (1-33%) -Necrotic Tissue Type Adherent Slough -Texture (Lisa-wound Skin Appearance) Scarring -Moisture (Lisa-wound Skin Appearance Dry/Scaly ) -Color (Lisa-wound Skin Appearance) Assessed Hemosiderin Staining -Temperature (Lisa-wound Skin No Abnormality Appearance) (Pt Warm) -Tenderness on Palpation (Lisa-wound No Skin Appearance) -Ulcer Cleansing Wound Cleanser -Foul Odor after Cleansing No -Anesthetic Used 4% Lidocaine Solution #5 R Lat LE -Combined with other wound No -Current Size (cm) - Length 2.4 -Current Size (cm) - Width 1.9 -Current Size (cm) - Depth 0.2 -Total Square Cm 4.56 -Date of Last Picture (Recall this 10/12/18 field) -Photo Taken Yes -Epithelialization None Present -Tunneling No -Undermining/Tunneling No -Circular Undermining No -Exudate Amt Small (1-33%) -Exudate Type Serosanguineous -Wound Margin Distinct, Outline Attached -Granulation Amt Medium (34-66%) -Granulation Quality Regent -Slough/Fibrin Yes -Necrosis Amt Medium (34-66%) -Necrotic Tissue Type Adherent Slough -Texture (Lisa-wound Skin Appearance) Scarring -Moisture (Lisa-wound Skin Appearance Dry/Scaly ) -Color (Lisa-wound Skin Appearance) Hemosiderin Staining -Temperature (Lisa-wound Skin No Abnormality Appearance) (Pt Warm) -Tenderness on Palpation (Lisa-wound No Skin Appearance) -Ulcer Cleansing Wound Cleanser -Foul Odor after Cleansing No -Anesthetic Used 4% Lidocaine Solution #4 R post LE -Combined with other wound No -Current Size (cm) - Length 1 -Current Size (cm) - Width 0.9 -Current Size (cm) - Depth 0.2 -Total Square Cm 0.9 -Date of Last Picture (Recall this 10/12/18 field) -Photo Taken Yes -Epithelialization None Present -Tunneling No -Undermining/Tunneling No -Circular Undermining No -Exudate Amt Small (1-33%) -Exudate Type Serosanguineous -Wound Margin Distinct, Outline Attached -Granulation Amt Medium (34-66%) -Granulation Quality Regent -Slough/Fibrin Yes -Necrosis Amt Medium (34-66%) -Necrotic Tissue Type Adherent Slough -Texture (Lisa-wound Skin Appearance) Scarring -Moisture (Lisa-wound Skin Appearance Dry/Scaly ) -Color (Lisa-wound Skin Appearance) Hemosiderin Staining -Temperature (Lisa-wound Skin No Abnormality Appearance) (Pt Warm) -Tenderness on Palpation (Lisa-wound No Skin Appearance) -Ulcer Cleansing Wound Cleanser -Foul Odor after Cleansing No -Anesthetic Used 4% Lidocaine Solution #3 R Med LE -Combined with other wound No -Current Size (cm) - Length 2.8 -Current Size (cm) - Width 1 -Current Size (cm) - Depth 0.3 -Total Square Cm 2.8 -Date of Last Picture (Recall this 10/12/18 field) -Photo Taken Yes -Epithelialization None Present -Tunneling No -Undermining/Tunneling No -Circular Undermining No -Exudate Amt Small (1-33%) -Exudate Type Serosanguineous -Wound Margin Distinct, Outline Attached -Granulation Amt Medium (34-66%) -Granulation Quality Regent -Slough/Fibrin Yes -Necrosis Amt Medium (34-66%) -Necrotic Tissue Type Adherent Slough -Texture (Lisa-wound Skin Appearance) Scarring -Moisture (Lisa-wound Skin Appearance Dry/Scaly ) -Color (Lisa-wound Skin Appearance) Hemosiderin Staining -Temperature (Lisa-wound Skin No Abnormality Appearance) (Pt Warm) -Tenderness on Palpation (Lisa-wound No Skin Appearance) -Ulcer Cleansing Wound Cleanser -Foul Odor after Cleansing No -Anesthetic Used 4% Lidocaine Solution #2 R [place] Cluster -Combined with other wound No -Current Size (cm) - Length 21.9 -Current Size (cm) - Width 3.5 -Current Size (cm) - Depth 0.1 -Total Square Cm 76.65 -Date of Last Picture (Recall this 10/12/18 field) -Photo Taken Yes -Epithelialization Small 1-33% -Tunneling No -Undermining/Tunneling No -Circular Undermining No -Exudate Amt Medium (34-66%) -Exudate Type Serosanguineous -Wound Margin Distinct, Outline Attached -Granulation Amt Medium (34-66%) -Granulation Quality Red -Slough/Fibrin Yes -Necrosis Amt Medium (34-66%) -Necrotic Tissue Type Adherent Slough -Texture (Lisa-wound Skin Appearance) Scarring -Moisture (Lisa-wound Skin Appearance Dry/Scaly ) -Color (Lisa-wound Skin Appearance) Hemosiderin Staining -Temperature (Lisa-wound Skin No Abnormality Appearance) (Pt Warm) -Tenderness on Palpation (Lisa-wound No Skin Appearance) -Ulcer Cleansing Wound Cleanser -Foul Odor after Cleansing No -Anesthetic Used 4% Lidocaine Solution #1 R 2nd toe amp/Arch/ Med Ankle -Combined with other wound No -Current Size (cm) - Length 29.5 -Current Size (cm) - Width 3.3 -Current Size (cm) - Depth 1.4 -Total Square Cm 97.35 -Date of Last Picture (Recall this 10/12/18 field) -Photo Taken Yes -Epithelialization None Present -Tunneling No -Undermining/Tunneling No -Circular Undermining No -Exudate Amt Small (1-33%) -Exudate Type Serosanguineous -Wound Margin Distinct, Outline Attached -Granulation Amt Large (67-100%) -Granulation Quality Red -Slough/Fibrin Yes -Necrosis Amt Small (1-33%) -Necrotic Tissue Type Adherent Slough -Texture (Lisa-wound Skin Appearance) Scarring -Moisture (Lisa-wound Skin Appearance Maceration ) Dry/Scaly -Color (Lisa-wound Skin Appearance) Palor -Temperature (Lisa-wound Skin No Abnormality Appearance) (Pt Warm) -Tenderness on Palpation (Lisa-wound No Skin Appearance) -Ulcer Cleansing Wound Cleanser -Foul Odor after Cleansing No -Anesthetic Used 4% Lidocaine Solution [Edema Assessment] -Lower Limb Edema Present No -Right Calf (cm) 34.5 -Right Ankle (cm) 21.9 -Left Calf (cm) 33.1 -Left Ankle (cm) 20.6 WC - Nurse 2 - General Ulcer CM Notes Start: 09/28/18 09:15 Freq: Status: Active Protocol: Activity Type Activity Date Activity User E-Sign Co-Sign Detail Recorded Client Recorded Date Recorded By Document 10/12/18 09:39 [id number] 10/12/18 09:52 Document 10/12/18 10:02 [id number] 10/12/18 10:07 10/12/18 10/12/18 09:39 10:02 Wound Center Nurse 2 [Procedure/Treatment] #10 right heel -Time 09:49 -Correct Patient Yes -Correct Side, Site, Position Yes -Correct Procedure Yes -Procedure Performed Yes -Type of Procedure Debridement -Clinical Debridement Subcutaneous -Post Debridement Size (cm) - Length 1.0 -Post Debridement Size (cm) - Width 0.8 -Post Debridement Size (cm) - Depth 0.2 -Total Square Cm 0.80 -Wound/Ulcer Outcome Not Healed -Ulcer Cleansing Rinsed/ Irrigated with Saline -Foul Odor after Cleansing No -Bioengineered Tissue No -Topical Lidocaine (%) 4 -Bleeding Controlled with Pressure -Treatment Response Procedure Tolerated Well 9.L knee -Time 10:03 -Correct Patient Yes -Correct Side, Site, Position Yes -Correct Procedure Yes -Procedure Performed Yes -Type of Procedure Debridement -Clinical Debridement Subcutaneous -Post Debridement Size (cm) - Length 0.2 -Post Debridement Size (cm) - Width 0.4 -Post Debridement Size (cm) - Depth 0.2 -Total Square Cm 0.08 -Wound/Ulcer Outcome Not Healed -Ulcer Cleansing Rinsed/ Irrigated with Saline -Foul Odor after Cleansing No -Bioengineered Tissue No -Bleeding Controlled with Pressure -Treatment Response Procedure Tolerated Well #8 r Knee -Time 10:03 -Correct Patient Yes -Correct Side, Site, Position Yes -Correct Procedure Yes -Procedure Performed Yes -Type of Procedure Debridement -Clinical Debridement Subcutaneous -Post Debridement Size (cm) - Length 1.1 -Post Debridement Size (cm) - Width 1.1 -Post Debridement Size (cm) - Depth 0.3 -Total Square Cm 1.21 -Wound/Ulcer Outcome Not Healed -Ulcer Cleansing Rinsed/ Irrigated with Saline -Foul Odor after Cleansing No -Bioengineered Tissue No -Bleeding Controlled with Pressure -Treatment Response Procedure Tolerated Well #6 L Post -Time 09:49 -Correct Patient Yes -Correct Side, Site, Position Yes -Correct Procedure Yes -Procedure Performed Yes -Type of Procedure Debridement -Clinical Debridement Subcutaneous -Post Debridement Size (cm) - Length 21.6 -Post Debridement Size (cm) - Width 2.6 -Post Debridement Size (cm) - Depth 0.2 -Total Square Cm 56.16 -Wound/Ulcer Outcome Not Healed -Ulcer Cleansing Rinsed/ Irrigated with Saline -Foul Odor after Cleansing No -Bioengineered Tissue No -Topical Lidocaine (%) 4 -Bleeding Controlled with Pressure -Treatment Response Procedure Tolerated Well #5 R Lat LE -Time 09:50 -Correct Patient Yes -Correct Side, Site, Position Yes -Correct Procedure Yes -Procedure Performed Yes -Type of Procedure Debridement -Clinical Debridement Subcutaneous -Post Debridement Size (cm) - Length 2.5 -Post Debridement Size (cm) - Width 2.0 -Post Debridement Size (cm) - Depth 0.2 -Total Square Cm 5.00 -Wound/Ulcer Outcome Not Healed -Ulcer Cleansing Rinsed/ Irrigated with Saline -Foul Odor after Cleansing No -Bioengineered Tissue No -Topical Lidocaine (%) 4 -Bleeding Controlled with Pressure -Treatment Response Procedure Tolerated Well #4 R post LE -Time 09:50 -Correct Patient Yes -Correct Side, Site, Position Yes -Correct Procedure Yes -Procedure Performed Yes -Type of Procedure Debridement -Clinical Debridement Subcutaneous -Post Debridement Size (cm) - Length 1.1 -Post Debridement Size (cm) - Width 1.0 -Post Debridement Size (cm) - Depth 0.2 -Total Square Cm 1.10 -Wound/Ulcer Outcome Not Healed -Ulcer Cleansing Rinsed/ Irrigated with Saline -Foul Odor after Cleansing No -Bioengineered Tissue No -Topical Lidocaine (%) 4 -Bleeding Controlled with Pressure -Treatment Response Procedure Tolerated Well #3 R Med LE -Time 09:51 -Correct Patient Yes -Correct Side, Site, Position Yes -Correct Procedure Yes -Procedure Performed Yes -Type of Procedure Debridement -Clinical Debridement Subcutaneous -Post Debridement Size (cm) - Length 2.9 -Post Debridement Size (cm) - Width 1.1 -Post Debridement Size (cm) - Depth 0.3 -Total Square Cm 3.19 -Wound/Ulcer Outcome Not Healed -Ulcer Cleansing Rinsed/ Irrigated with Saline -Foul Odor after Cleansing No -Bioengineered Tissue No -Topical Lidocaine (%) 4 -Bleeding Controlled with Pressure -Treatment Response Procedure Tolerated Well #2 R [place] Cluster -Time 09:51 -Correct Patient Yes -Correct Side, Site, Position Yes -Correct Procedure Yes -Procedure Performed Yes -Type of Procedure Debridement -Clinical Debridement Subcutaneous -Post Debridement Size (cm) - Length 22.0 -Post Debridement Size (cm) - Width 3.6 -Post Debridement Size (cm) - Depth 0.1 -Total Square Cm 79.20 -Wound/Ulcer Outcome Not Healed -Ulcer Cleansing Rinsed/ Irrigated with Saline -Foul Odor after Cleansing No -Bioengineered Tissue No -Topical Lidocaine (%) 4 -Bleeding Controlled with Pressure -Treatment Response Procedure Tolerated Well #1 R 2nd toe amp/Arch/ Med Ankle -Time 09:51 -Correct Patient Yes -Correct Side, Site, Position Yes -Correct Procedure Yes -Procedure Performed Yes -Type of Procedure Debridement -Clinical Debridement Subcutaneous -Post Debridement Size (cm) - Length 29.6 -Post Debridement Size (cm) - Width 3.4 -Post Debridement Size (cm) - Depth 1.4 -Total Square Cm 100.64 -Wound/Ulcer Outcome Not Healed -Ulcer Cleansing Rinsed/ Irrigated with Saline -Foul Odor after Cleansing No -Bioengineered Tissue No -Topical Lidocaine (%) 4 -Bleeding Controlled with Pressure -Treatment Response Procedure Tolerated Well [See Physician Procedure note for Specifics] Pain Scale: 0-10 Numeric [Pain] -Is Patient Pain Free? Yes Musculoskeletal: No Muscle Wasting Neurological: Cranial nerves II-XII grossly intact Psych/Mental Status: Normal Affect Debridement Note Post-Debridement Measurements/Treatment WC - Nurse 2 - General Ulcer CM Notes Start: 09/28/18 09:15 Freq: Status: Active Protocol: Activity Type Activity Date Activity User E-Sign Co-Sign Detail Recorded Client Recorded Date Recorded By Document 09/28/18 10:06 TM [id number] 09/28/18 10:15 TM Document 09/28/18 10:41 MW [id number] 09/28/18 10:51 MW Document 10/05/18 10:10 CS [id number] 10/05/18 10:11 CS Document 10/05/18 15:32 TM [id number] 10/05/18 15:36 TM Document 10/12/18 09:39 TM [id number] 10/12/18 09:52 TM Document 10/12/18 10:02 MW [id number] 10/12/18 10:07 MW 09/28/18 09/28/18 10/05/18 10:06 10:41 10:10 Wound Center Nurse 2 #10 right heel -Time 10:13 -Correct Patient Yes -Correct Side, Site, Position Yes -Correct Procedure Yes -Procedure Performed Yes -Type of Procedure Debridement -Clinical Debridement Subcutaneous -Post Debridement Size (cm) - Length 1.4 -Post Debridement Size (cm) - Width 1.0 -Post Debridement Size (cm) - Depth 0.1 -Total Square Cm 1.40 -Wound/Ulcer Outcome Not Healed -Ulcer Cleansing Rinsed/ Irrigated with Saline -Foul Odor after Cleansing No -Bioengineered Tissue No -Topical Lidocaine (%) 4 -Bleeding Controlled with Pressure -Treatment Response Procedure Tolerated Well 9.L knee -Time 10:42 10:10 -Correct Patient Yes Yes -Correct Side, Site, Position Yes Yes -Correct Procedure Yes Yes -Procedure Performed Yes Yes -Type of Procedure Debridement Debridement -Clinical Debridement Subcutaneous Subcutaneous -Post Debridement Size (cm) - Length 0.2 0.4 -Post Debridement Size (cm) - Width 0.6 0.5 -Post Debridement Size (cm) - Depth 0.1 0.2 -Total Square Cm 0.12 0.20 -Wound/Ulcer Outcome Not Healed Not Healed -Ulcer Cleansing Rinsed/ Rinsed/ Irrigated with Irrigated with Saline Saline -Foul Odor after Cleansing No No -Bioengineered Tissue No No -Bleeding Controlled with Pressure NA -Treatment Response Procedure Procedure Tolerated Well Tolerated Well #8 r Knee -Time 10:42 10:10 -Correct Patient Yes Yes -Correct Side, Site, Position Yes Yes -Correct Procedure Yes Yes -Procedure Performed Yes Yes -Type of Procedure Debridement Debridement -Clinical Debridement Subcutaneous Subcutaneous -Post Debridement Size (cm) - Length 1.2 1 -Post Debridement Size (cm) - Width 1.7 1.2 -Post Debridement Size (cm) - Depth 0.3 0.2 -Total Square Cm 2.04 1.2 -Wound/Ulcer Outcome Not Healed Not Healed -Ulcer Cleansing Rinsed/ Not Cleansed Irrigated with Saline -Foul Odor after Cleansing No No -Bioengineered Tissue No No -Bleeding Controlled with Pressure NA -Treatment Response Procedure Procedure Tolerated Well Tolerated Well #6 L Post -Time 10:09 -Correct Patient Yes -Correct Side, Site, Position Yes -Correct Procedure Yes -Procedure Performed Yes -Type of Procedure Debridement -Clinical Debridement Muscle -Post Debridement Size (cm) - Length 21.1 -Post Debridement Size (cm) - Width 2.1 -Post Debridement Size (cm) - Depth 0.5 -Total Square Cm 44.31 -Wound/Ulcer Outcome Not Healed -Ulcer Cleansing Rinsed/ Irrigated with Saline -Foul Odor after Cleansing No -Bioengineered Tissue No -Topical Lidocaine (%) 4 -Bleeding Controlled with Pressure -Treatment Response Procedure Tolerated Well #5 R Lat LE -Time 10:09 -Correct Patient Yes -Correct Side, Site, Position Yes -Correct Procedure Yes -Procedure Performed Yes -Type of Procedure Debridement -Clinical Debridement Subcutaneous -Post Debridement Size (cm) - Length 3.2 -Post Debridement Size (cm) - Width 1.8 -Post Debridement Size (cm) - Depth 0.1 -Total Square Cm 5.76 -Wound/Ulcer Outcome Not Healed -Ulcer Cleansing Rinsed/ Irrigated with Saline -Foul Odor after Cleansing No -Bioengineered Tissue No -Topical Lidocaine (%) 4 -Bleeding Controlled with Pressure -Treatment Response Procedure Tolerated Well #4 R post LE -Time 10:10 -Correct Patient Yes -Correct Side, Site, Position Yes -Correct Procedure Yes -Procedure Performed Yes -Type of Procedure Debridement -Clinical Debridement Subcutaneous -Post Debridement Size (cm) - Length 1.3 -Post Debridement Size (cm) - Width 1.1 -Post Debridement Size (cm) - Depth 0.1 -Total Square Cm 1.43 -Wound/Ulcer Outcome Not Healed -Ulcer Cleansing Rinsed/ Irrigated with Saline -Foul Odor after Cleansing No -Bioengineered Tissue No -Topical Lidocaine (%) 4 -Bleeding Controlled with Pressure -Treatment Response Procedure Tolerated Well #3 R Med LE -Time 10:10 -Correct Patient Yes -Correct Side, Site, Position Yes -Correct Procedure Yes -Procedure Performed Yes -Type of Procedure Debridement -Clinical Debridement Subcutaneous -Post Debridement Size (cm) - Length 3.6 -Post Debridement Size (cm) - Width 1.6 -Post Debridement Size (cm) - Depth 0.3 -Total Square Cm 5.76 -Wound/Ulcer Outcome Not Healed -Ulcer Cleansing Rinsed/ Irrigated with Saline -Foul Odor after Cleansing No -Bioengineered Tissue No -Topical Lidocaine (%) 4 -Bleeding Controlled with Pressure -Treatment Response Procedure Tolerated Well #2 R [place] Cluster -Time 10:11 -Correct Patient Yes -Correct Side, Site, Position Yes -Correct Procedure Yes -Procedure Performed Yes -Type of Procedure Debridement -Clinical Debridement Subcutaneous -Post Debridement Size (cm) - Length 15.6 -Post Debridement Size (cm) - Width 3.9 -Post Debridement Size (cm) - Depth 0.1 -Total Square Cm 60.84 -Wound/Ulcer Outcome Not Healed -Ulcer Cleansing Rinsed/ Irrigated with Saline -Foul Odor after Cleansing No -Bioengineered Tissue No -Topical Lidocaine (%) 4 -Bleeding Controlled with Pressure -Treatment Response Procedure Tolerated Well #1 R 2nd toe amp/Arch/ Med Ankle -Time 10:11 -Correct Patient Yes -Correct Side, Site, Position Yes -Correct Procedure Yes -Procedure Performed Yes -Type of Procedure Debridement -Clinical Debridement Subcutaneous -Post Debridement Size (cm) - Length 29.1 -Post Debridement Size (cm) - Width 2.9 -Post Debridement Size (cm) - Depth 1.3 -Total Square Cm 84.39 -Wound/Ulcer Outcome Not Healed -Ulcer Cleansing Rinsed/ Irrigated with Saline -Foul Odor after Cleansing No -Bioengineered Tissue No -Topical Lidocaine (%) 4 -Bleeding Controlled with Pressure -Treatment Response Procedure Tolerated Well Pain Scale: 0-10 Numeric Is Patient Pain Free? Yes 18 10/12/18 10/12/18 15:32 09:39 10:02 Wound Center Nurse 2 #10 right heel -Time 15:32 09:49 -Correct Patient Yes Yes -Correct Side, Site, Position Yes Yes -Correct Procedure Yes Yes -Procedure Performed Yes Yes -Type of Procedure Debridement Debridement -Clinical Debridement Subcutaneous Subcutaneous -Post Debridement Size (cm) - Length 0.6 1.0 -Post Debridement Size (cm) - Width 1.0 0.8 -Post Debridement Size (cm) - Depth 0.2 0.2 -Total Square Cm 0.60 0.80 -Wound/Ulcer Outcome Not Healed Not Healed -Ulcer Cleansing Rinsed/ Rinsed/ Irrigated with Irrigated with Saline Saline -Foul Odor after Cleansing No No -Bioengineered Tissue No No -Topical Lidocaine (%) 4 4 -Bleeding Controlled with Pressure Pressure -Treatment Response Procedure Procedure Tolerated Well Tolerated Well 9.L knee -Time 10:03 -Correct Patient Yes -Correct Side, Site, Position Yes -Correct Procedure Yes -Procedure Performed Yes -Type of Procedure Debridement -Clinical Debridement Subcutaneous -Post Debridement Size (cm) - Length 0.2 -Post Debridement Size (cm) - Width 0.4 -Post Debridement Size (cm) - Depth 0.2 -Total Square Cm 0.08 -Wound/Ulcer Outcome Not Healed -Ulcer Cleansing Rinsed/ Irrigated with Saline -Foul Odor after Cleansing No -Bioengineered Tissue No -Bleeding Controlled with Pressure -Treatment Response Procedure Tolerated Well #8 r Knee -Time 10:03 -Correct Patient Yes -Correct Side, Site, Position Yes -Correct Procedure Yes -Procedure Performed Yes -Type of Procedure Debridement -Clinical Debridement Subcutaneous -Post Debridement Size (cm) - Length 1.1 -Post Debridement Size (cm) - Width 1.1 -Post Debridement Size (cm) - Depth 0.3 -Total Square Cm 1.21 -Wound/Ulcer Outcome Not Healed -Ulcer Cleansing Rinsed/ Irrigated with Saline -Foul Odor after Cleansing No -Bioengineered Tissue No -Bleeding Controlled with Pressure -Treatment Response Procedure Tolerated Well #6 L Post -Time 15:32 09:49 -Correct Patient Yes Yes -Correct Side, Site, Position Yes Yes -Correct Procedure Yes Yes -Procedure Performed Yes Yes -Type of Procedure Debridement Debridement -Clinical Debridement Subcutaneous Subcutaneous -Post Debridement Size (cm) - Length 14.3 21.6 -Post Debridement Size (cm) - Width 2.7 2.6 -Post Debridement Size (cm) - Depth 0.2 0.2 -Total Square Cm 38.61 56.16 -Wound/Ulcer Outcome Not Healed Not Healed -Ulcer Cleansing Rinsed/ Rinsed/ Irrigated with Irrigated with Saline Saline -Foul Odor after Cleansing No No -Bioengineered Tissue No No -Topical Lidocaine (%) 4 4 -Bleeding Controlled with Pressure Pressure -Treatment Response Procedure Procedure Tolerated Well Tolerated Well #5 R Lat LE -Time 15:33 09:50 -Correct Patient Yes Yes -Correct Side, Site, Position Yes Yes -Correct Procedure Yes Yes -Procedure Performed Yes Yes -Type of Procedure Debridement Debridement -Clinical Debridement Subcutaneous Subcutaneous -Post Debridement Size (cm) - Length 2.6 2.5 -Post Debridement Size (cm) - Width 2.1 2.0 -Post Debridement Size (cm) - Depth 0.2 0.2 -Total Square Cm 5.46 5.00 -Wound/Ulcer Outcome Not Healed Not Healed -Ulcer Cleansing Rinsed/ Rinsed/ Irrigated with Irrigated with Saline Saline -Foul Odor after Cleansing No No -Bioengineered Tissue No No -Topical Lidocaine (%) 4 -Bleeding Controlled with Pressure Pressure -Treatment Response Procedure Procedure Tolerated Well Tolerated Well #4 R post LE -Time 15:33 09:50 -Correct Patient Yes Yes -Correct Side, Site, Position Yes Yes -Correct Procedure Yes Yes -Procedure Performed Yes Yes -Type of Procedure Debridement Debridement -Clinical Debridement Subcutaneous Subcutaneous -Post Debridement Size (cm) - Length 3.3 1.1 -Post Debridement Size (cm) - Width 1.1 1.0 -Post Debridement Size (cm) - Depth 0.3 0.2 -Total Square Cm 3.63 1.10 -Wound/Ulcer Outcome Not Healed Not Healed -Ulcer Cleansing Rinsed/ Rinsed/ Irrigated with Irrigated with Saline Saline -Foul Odor after Cleansing No No -Bioengineered Tissue No No -Topical Lidocaine (%) 4 4 -Bleeding Controlled with Pressure Pressure -Treatment Response Procedure Procedure Tolerated Well Tolerated Well #3 R Med LE -Time 15:34 09:51 -Correct Patient Yes Yes -Correct Side, Site, Position Yes Yes -Correct Procedure Yes Yes -Procedure Performed Yes Yes -Type of Procedure Debridement Debridement -Clinical Debridement Subcutaneous Subcutaneous -Post Debridement Size (cm) - Length 1.2 2.9 -Post Debridement Size (cm) - Width 1.0 1.1 -Post Debridement Size (cm) - Depth 0.2 0.3 -Total Square Cm 1.20 3.19 -Wound/Ulcer Outcome Not Healed Not Healed -Ulcer Cleansing Rinsed/ Rinsed/ Irrigated with Irrigated with Saline Saline -Foul Odor after Cleansing No No -Bioengineered Tissue No No -Topical Lidocaine (%) 4 4 -Bleeding Controlled with Pressure Pressure -Treatment Response Procedure Procedure Tolerated Well Tolerated Well #2 R [place] Cluster -Time 15:34 09:51 -Correct Patient Yes Yes -Correct Side, Site, Position Yes Yes -Correct Procedure Yes Yes -Procedure Performed Yes Yes -Type of Procedure Debridement Debridement -Clinical Debridement Subcutaneous Subcutaneous -Post Debridement Size (cm) - Length 22.1 22.0 -Post Debridement Size (cm) - Width 3.8 3.6 -Post Debridement Size (cm) - Depth 0.2 0.1 -Total Square Cm 83.98 79.20 -Wound/Ulcer Outcome Not Healed Not Healed -Ulcer Cleansing Rinsed/ Rinsed/ Irrigated with Irrigated with Saline Saline -Foul Odor after Cleansing No No -Bioengineered Tissue No No -Topical Lidocaine (%) 4 4 -Bleeding Controlled with Pressure Pressure -Treatment Response Procedure Procedure Tolerated Well Tolerated Well #1 R 2nd toe amp/Arch/ Med Ankle -Time 15:35 09:51 -Correct Patient Yes Yes -Correct Side, Site, Position Yes Yes -Correct Procedure Yes Yes -Procedure Performed Yes Yes -Type of Procedure Debridement Debridement -Clinical Debridement Subcutaneous Subcutaneous -Post Debridement Size (cm) - Length 29.2 29.6 -Post Debridement Size (cm) - Width 3.0 3.4 -Post Debridement Size (cm) - Depth 1.3 1.4 -Total Square Cm 87.60 100.64 -Wound/Ulcer Outcome Not Healed Not Healed -Ulcer Cleansing Rinsed/ Rinsed/ Irrigated with Irrigated with Saline Saline -Foul Odor after Cleansing No No -Bioengineered Tissue No No -Topical Lidocaine (%) 4 4 -Bleeding Controlled with Pressure Pressure -Treatment Response Procedure Procedure Tolerated Well Tolerated Well Pain Scale: 0-10 Numeric Is Patient Pain Free? Yes Yes Wound debrided: Left Knee Wound Grade/Stage: Stage II Type of Debridement: Excisional debridement Anesthesia Used: 4% Lidocaine Solution Depth: Down to and including healthy tissue, in the subcutaneous layer Percentage of wound debrided: 100 Instrument Used: 3mm curette Tissue Removed: Slough and devitalized tissue Severity: Fat Layer Exposed Amount of bleeding with debridement: Mild Bleeding Controlled with: Pressure Patient tolerated procedure well - Additional Wound Wound debrided: Right knee Wound Grade/Stage: Stage III Type of Debridement: Excisional debridement Anesthesia Used: 4% Lidocaine Solution Depth: Down to and including healthy tissue, in the subcutaneous layer Percentage of wound debrided: 100 Instrument Used: 3mm curette Tissue Removed: Slough and devitalized tissue Severity: Fat Layer Exposed Amount of bleeding with debridement: Mild Bleeding Controlled with: Pressure Patient tolerated procedure: Patient tolerated procedure well Assessment/Plan Active Problems (Last Updated 09/28/18 @ 12:41 by Gerladine Steele) Ulcer of right foot with fat layer exposed (Chronic) Delayed wound healing (Chronic) 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 (Chronic) Ulcer of right lower extremity with fat layer exposed (Chronic) Ulcer of left lower extremity with fat layer exposed (Chronic) Type 2 diabetes mellitus with diabetic polyneuropathy (Chronic) Localized edema (Chronic) Malnutrition (Chronic) Assessment: Open second and third ray resection secondary to 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 Diabetic neuropathy. Malnutrition suspected. 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 Delayed healing. Gait impairment and fall risk. Other comorbidities, right knee ulcer, tendon exposed (Dr. Gilbert managed), left knee ulcer (Dr. Gilbert managed) Plan: Left knee is improving. Right knee with some pain and discharge per his and patient. No significant tendernss or dscharge apprecaited. Debridement done as documenetd above, procedure was well tolerated. Cultures taken from the right knee. Continue pomogran with adaptic. Change every third day. Elevate lower extremity when seated and in bed. Continue increased protein intake and management of lower extremity ulcers per Dr. Gruber. Follow up in 1 week with me. Advised to call with any questions or concerns.
--- NOTE | 2018-10-12 10:18 | PN.PCM_ITS ---
(1) Ulcer of left lower extremity with fat layer exposed Status: Chronic Current Visit: Yes Code(s): L97.922 - Non-pressure chronic ulcer of unspecified part of left lower leg with fat layer exposed (2) Ulcer of right lower extremity with fat layer exposed Status: Chronic Current Visit: Yes Code(s): L97.912 - Non-pressure chronic ulcer of unspecified part of right lower leg with fat layer exposed (3) Type 2 diabetes mellitus with diabetic polyneuropathy Status: Chronic Current Visit: Yes Code(s): E11.42 - Type 2 diabetes mellitus with diabetic polyneuropathy Type of Wound Chief Complaint: right and left Leg ulcers and right foot ulcer History of Wound: Mr. Arguello is a 63-year-old male with multiple comorbidities follows up for delayed healing ulcers to the right foot as well as bilateral legs. It is noted he previously had widespread debridements and fasciotomies performed to bilateral lower extremities secondary to life-threatening and limb threatening infection; this was previously performed at [facility]. He continues to follow with Dr. Gilbert for her knee ulcers, and I saw him today for his other ulcer sites. He has been applying Santyl to both the wounds, Aquacel to leg ulcers, and wound VAC to right foot defect with quality and size reduction improvement. He denies chills, fever or otherwise feeling of unwell. He presents today with his . He refuses advanced wound care product application. He refuses hyperbaric oxygen therapy treatment. Progress of Wound: Improving left knee ulcer. Stable right knee. Some pain over the past week. - Physical Exam Vital Signs Temp Pulse Resp BP 95 F L 103 H 16 127/89 H 10/12/18 08:41 10/12/18 08:41 10/12/18 08:41 10/12/18 08:41 General: Alert, Oriented x3, Cooperative, No apparent distress HEENT: Atraumatic Oral: Moist Mucosa Neck: Supple Lungs: Normal air movement Extremities: No cyanosis Skin: Ulcer/ Wound Wound Measurements and Assessment WC - Nurse 1 - General Ulcer Measurement Start: 09/28/18 09:15 Freq: Status: Active Protocol: Activity Type Activity Date Activity User E-Sign Co-Sign Detail Recorded Client Recorded Date Recorded By Document 10/12/18 08:41 [facility] [id number] 10/12/18 09:21 BM 10/12/18 08:41 Wound Center Nurse 1 [Ulcer Assessment] #10 right heel -Combined with other wound No -Current Size (cm) - Length 0.9 -Current Size (cm) - Width 0.7 -Current Size (cm) - Depth 0.2 -Total Square Cm 0.63 -Date of Last Picture (Recall this 10/12/18 field) -Photo Taken Yes -Epithelialization None Present -Tunneling No -Undermining/Tunneling No -Circular Undermining No -Exudate Amt Small (1-33%) -Exudate Type Serosanguineous -Wound Margin Distinct, Outline Attached -Granulation Amt Small (1-33%) -Granulation Quality [place] -Slough/Fibrin Yes -Necrosis Amt Large (67-100%) -Necrotic Tissue Type Adherent Slough -Texture (Lisa-wound Skin Appearance) Scarring -Moisture (Lisa-wound Skin Appearance Dry/Scaly ) -Color (Lisa-wound Skin Appearance) Assessed -Temperature (Lisa-wound Skin No Abnormality Appearance) (Pt Warm) -Tenderness on Palpation (Lisa-wound No Skin Appearance) -Ulcer Cleansing Wound Cleanser -Foul Odor after Cleansing No -Anesthetic Used 4% Lidocaine Solution 9.L knee -Combined with other wound No -Current Size (cm) - Length 0.2 -Current Size (cm) - Width 0.4 -Current Size (cm) - Depth 0.2 -Total Square Cm 0.08 -Date of Last Picture (Recall this 10/12/18 field) -Photo Taken Yes -Epithelialization None Present -Tunneling No -Undermining/Tunneling No -Circular Undermining No -Exudate Amt Small (1-33%) -Exudate Type Purulent -Wound Margin Distinct, Outline Attached -Granulation Amt Small (1-33%) -Granulation Quality [place] -Slough/Fibrin Yes -Necrosis Amt Large (67-100%) -Necrotic Tissue Type Adherent Slough -Texture (Lisa-wound Skin Appearance) Scarring -Moisture (Lisa-wound Skin Appearance Dry/Scaly ) -Color (Lisa-wound Skin Appearance) Assessed -Temperature (Lisa-wound Skin No Abnormality Appearance) (Pt Warm) -Tenderness on Palpation (Lisa-wound No Skin Appearance) -Ulcer Cleansing Rinsed/ Irrigated with Saline -Foul Odor after Cleansing No -Anesthetic Used 4% Lidocaine Solution #8 r Knee -Combined with other wound No -Current Size (cm) - Length 1.2 -Current Size (cm) - Width 1.4 -Current Size (cm) - Depth 0.3 -Total Square Cm 1.68 -Date of Last Picture (Recall this 10/12/18 field) -Photo Taken Yes -Epithelialization None Present -Undermining/Tunneling Yes -Undermining/Tunneling Starts (O' 6 clock) -Undermining/Tunneling Ends (O'clock) 3 -Maximum Distance (cm) 0.5 -Circular Undermining No -Exudate Amt Small (1-33%) -Exudate Type Purulent -Wound Margin Thickened -Granulation Amt Small (1-33%) -Granulation Quality [place] -Slough/Fibrin Yes -Necrosis Amt Large (67-100%) -Necrotic Tissue Type Adherent Slough -Texture (Lisa-wound Skin Appearance) Localized Edema Scarring -Moisture (Lisa-wound Skin Appearance Dry/Scaly ) -Color (Lisa-wound Skin Appearance) Assessed -Temperature (Lisa-wound Skin No Abnormality Appearance) (Pt Warm) -Tenderness on Palpation (Lisa-wound No Skin Appearance) -Ulcer Cleansing Wound Cleanser -Foul Odor after Cleansing No -Anesthetic Used 4% Lidocaine Solution #6 L Post -Combined with other wound No -Current Size (cm) - Length 21.5 -Current Size (cm) - Width 2.5 -Current Size (cm) - Depth 0.2 -Total Square Cm 53.75 -Date of Last Picture (Recall this 10/12/18 field) -Photo Taken Yes -Epithelialization None Present -Tunneling No -Undermining/Tunneling No -Circular Undermining No -Exudate Amt Small (1-33%) -Exudate Type Serosanguineous -Wound Margin Distinct, Outline Attached -Granulation Amt Large (67-100%) -Granulation Quality [place] -Slough/Fibrin Yes -Necrosis Amt Small (1-33%) -Necrotic Tissue Type Adherent Slough -Texture (Lisa-wound Skin Appearance) Scarring -Moisture (Lisa-wound Skin Appearance Dry/Scaly ) -Color (Lisa-wound Skin Appearance) Assessed Hemosiderin Staining -Temperature (Lisa-wound Skin No Abnormality Appearance) (Pt Warm) -Tenderness on Palpation (Lisa-wound No Skin Appearance) -Ulcer Cleansing Wound Cleanser -Foul Odor after Cleansing No -Anesthetic Used 4% Lidocaine Solution #5 R Lat LE -Combined with other wound No -Current Size (cm) - Length 2.4 -Current Size (cm) - Width 1.9 -Current Size (cm) - Depth 0.2 -Total Square Cm 4.56 -Date of Last Picture (Recall this 10/12/18 field) -Photo Taken Yes -Epithelialization None Present -Tunneling No -Undermining/Tunneling No -Circular Undermining No -Exudate Amt Small (1-33%) -Exudate Type Serosanguineous -Wound Margin Distinct, Outline Attached -Granulation Amt Medium (34-66%) -Granulation Quality [place] -Slough/Fibrin Yes -Necrosis Amt Medium (34-66%) -Necrotic Tissue Type Adherent Slough -Texture (Lisa-wound Skin Appearance) Scarring -Moisture (Lisa-wound Skin Appearance Dry/Scaly ) -Color (Lisa-wound Skin Appearance) Hemosiderin Staining -Temperature (Lisa-wound Skin No Abnormality Appearance) (Pt Warm) -Tenderness on Palpation (Lisa-wound No Skin Appearance) -Ulcer Cleansing Wound Cleanser -Foul Odor after Cleansing No -Anesthetic Used 4% Lidocaine Solution #4 R post LE -Combined with other wound No -Current Size (cm) - Length 1 -Current Size (cm) - Width 0.9 -Current Size (cm) - Depth 0.2 -Total Square Cm 0.9 -Date of Last Picture (Recall this 10/12/18 field) -Photo Taken Yes -Epithelialization None Present -Tunneling No -Undermining/Tunneling No -Circular Undermining No -Exudate Amt Small (1-33%) -Exudate Type Serosanguineous -Wound Margin Distinct, Outline Attached -Granulation Amt Medium (34-66%) -Granulation Quality [place] -Slough/Fibrin Yes -Necrosis Amt Medium (34-66%) -Necrotic Tissue Type Adherent Slough -Texture (Lisa-wound Skin Appearance) Scarring -Moisture (Lisa-wound Skin Appearance Dry/Scaly ) -Color (Lisa-wound Skin Appearance) Hemosiderin Staining -Temperature (Lisa-wound Skin No Abnormality Appearance) (Pt Warm) -Tenderness on Palpation (Lisa-wound No Skin Appearance) -Ulcer Cleansing Wound Cleanser -Foul Odor after Cleansing No -Anesthetic Used 4% Lidocaine Solution #3 R Med LE -Combined with other wound No -Current Size (cm) - Length 2.8 -Current Size (cm) - Width 1 -Current Size (cm) - Depth 0.3 -Total Square Cm 2.8 -Date of Last Picture (Recall this 10/12/18 field) -Photo Taken Yes -Epithelialization None Present -Tunneling No -Undermining/Tunneling No -Circular Undermining No -Exudate Amt Small (1-33%) -Exudate Type Serosanguineous -Wound Margin Distinct, Outline Attached -Granulation Amt Medium (34-66%) -Granulation Quality [place] -Slough/Fibrin Yes -Necrosis Amt Medium (34-66%) -Necrotic Tissue Type Adherent Slough -Texture (Lisa-wound Skin Appearance) Scarring -Moisture (Lisa-wound Skin Appearance Dry/Scaly ) -Color (Lias-wound Skin Appearance) Hemosiderin Staining -Temperature (Lisa-wound Skin No Abnormality Appearance) (Pt Warm) -Tenderness on Palpation (Lisa-wound No Skin Appearance) -Ulcer Cleansing Wound Cleanser -Foul Odor after Cleansing No -Anesthetic Used 4% Lidocaine Solution #2 R [place] Cluster -Combined with other wound No -Current Size (cm) - Length 21.9 -Current Size (cm) - Width 3.5 -Current Size (cm) - Depth 0.1 -Total Square Cm 76.65 -Date of Last Picture (Recall this 10/12/18 field) -Photo Taken Yes -Epithelialization Small 1-33% -Tunneling No -Undermining/Tunneling No -Circular Undermining No -Exudate Amt Medium (34-66%) -Exudate Type Serosanguineous -Wound Margin Distinct, Outline Attached -Granulation Amt Medium (34-66%) -Granulation Quality [place] -Slough/Fibrin Yes -Necrosis Amt Medium (34-66%) -Necrotic Tissue Type Adherent Slough -Texture (Lisa-wound Skin Appearance) Scarring -Moisture (Lisa-wound Skin Appearance Dry/Scaly ) -Color (Lisa-wound Skin Appearance) Hemosiderin Staining -Temperature (Lisa-wound Skin No Abnormality Appearance) (Pt Warm) -Tenderness on Palpation (Lisa-wound No Skin Appearance) -Ulcer Cleansing Wound Cleanser -Foul Odor after Cleansing No -Anesthetic Used 4% Lidocaine Solution #1 R 2nd toe amp/Arch/ Med Ankle -Combined with other wound No -Current Size (cm) - Length 29.5 -Current Size (cm) - Width 3.3 -Current Size (cm) - Depth 1.4 -Total Square Cm 97.35 -Date of Last Picture (Recall this 10/12/18 field) -Photo Taken Yes -Epithelialization None Present -Tunneling No -Undermining/Tunneling No -Circular Undermining No -Exudate Amt Small (1-33%) -Exudate Type Serosanguineous -Wound Margin Distinct, Outline Attached -Granulation Amt Large (67-100%) -Granulation Quality [place] -Slough/Fibrin Yes -Necrosis Amt Small (1-33%) -Necrotic Tissue Type Adherent Slough -Texture (Lisa-wound Skin Appearance) Scarring -Moisture (Lisa-wound Skin Appearance Maceration ) Dry/Scaly -Color (Lisa-wound Skin Appearance) Palor -Temperature (Lisa-wound Skin No Abnormality Appearance) (Pt Warm) -Tenderness on Palpation (Lisa-wound No Skin Appearance) -Ulcer Cleansing Wound Cleanser -Foul Odor after Cleansing No -Anesthetic Used 4% Lidocaine Solution [Edema Assessment] -Lower Limb Edema Present No -Right Calf (cm) 34.5 -Right Ankle (cm) 21.9 -Left Calf (cm) 33.1 -Left Ankle (cm) 20.6 WC - Nurse 2 - General Ulcer CM Notes Start: 09/28/18 09:15 Freq: Status: Active Protocol: Activity Type Activity Date Activity User E-Sign Co-Sign Detail Recorded Client Recorded Date Recorded By Document 10/12/18 09:39 [id number] 10/12/18 09:52 Document 10/12/18 10:02 [id number] 10/12/18 10:07 10/12/18 10/12/18 09:39 10:02 Wound Center Nurse 2 [Procedure/Treatment] #10 right heel -Time 09:49 -Correct Patient Yes -Correct Side, Site, Position Yes -Correct Procedure Yes -Procedure Performed Yes -Type of Procedure Debridement -Clinical Debridement Subcutaneous -Post Debridement Size (cm) - Length 1.0 -Post Debridement Size (cm) - Width 0.8 -Post Debridement Size (cm) - Depth 0.2 -Total Square Cm 0.80 -Wound/Ulcer Outcome Not Healed -Ulcer Cleansing Rinsed/ Irrigated with Saline -Foul Odor after Cleansing No -Bioengineered Tissue No -Topical Lidocaine (%) 4 -Bleeding Controlled with Pressure -Treatment Response Procedure Tolerated Well 9.L knee -Time 10:03 -Correct Patient Yes -Correct Side, Site, Position Yes -Correct Procedure Yes -Procedure Performed Yes -Type of Procedure Debridement -Clinical Debridement Subcutaneous -Post Debridement Size (cm) - Length 0.2 -Post Debridement Size (cm) - Width 0.4 -Post Debridement Size (cm) - Depth 0.2 -Total Square Cm 0.08 -Wound/Ulcer Outcome Not Healed -Ulcer Cleansing Rinsed/ Irrigated with Saline -Foul Odor after Cleansing No -Bioengineered Tissue No -Bleeding Controlled with Pressure -Treatment Response Procedure Tolerated Well #8 r Knee -Time 10:03 -Correct Patient Yes -Correct Side, Site, Position Yes -Correct Procedure Yes -Procedure Performed Yes -Type of Procedure Debridement -Clinical Debridement Subcutaneous -Post Debridement Size (cm) - Length 1.1 -Post Debridement Size (cm) - Width 1.1 -Post Debridement Size (cm) - Depth 0.3 -Total Square Cm 1.21 -Wound/Ulcer Outcome Not Healed -Ulcer Cleansing Rinsed/ Irrigated with Saline -Foul Odor after Cleansing No -Bioengineered Tissue No -Bleeding Controlled with Pressure -Treatment Response Procedure Tolerated Well #6 L Post -Time 09:49 -Correct Patient Yes -Correct Side, Site, Position Yes -Correct Procedure Yes -Procedure Performed Yes -Type of Procedure Debridement -Clinical Debridement Subcutaneous -Post Debridement Size (cm) - Length 21.6 -Post Debridement Size (cm) - Width 2.6 -Post Debridement Size (cm) - Depth 0.2 -Total Square Cm 56.16 -Wound/Ulcer Outcome Not Healed -Ulcer Cleansing Rinsed/ Irrigated with Saline -Foul Odor after Cleansing No -Bioengineered Tissue No -Topical Lidocaine (%) 4 -Bleeding Controlled with Pressure -Treatment Response Procedure Tolerated Well #5 R Lat LE -Time 09:50 -Correct Patient Yes -Correct Side, Site, Position Yes -Correct Procedure Yes -Procedure Performed Yes -Type of Procedure Debridement -Clinical Debridement Subcutaneous -Post Debridement Size (cm) - Length 2.5 -Post Debridement Size (cm) - Width 2.0 -Post Debridement Size (cm) - Depth 0.2 -Total Square Cm 5.00 -Wound/Ulcer Outcome Not Healed -Ulcer Cleansing Rinsed/ Irrigated with Saline -Foul Odor after Cleansing No -Bioengineered Tissue No -Topical Lidocaine (%) 4 -Bleeding Controlled with Pressure -Treatment Response Procedure Tolerated Well #4 R post LE -Time 09:50 -Correct Patient Yes -Correct Side, Site, Position Yes -Correct Procedure Yes -Procedure Performed Yes -Type of Procedure Debridement -Clinical Debridement Subcutaneous -Post Debridement Size (cm) - Length 1.1 -Post Debridement Size (cm) - Width 1.0 -Post Debridement Size (cm) - Depth 0.2 -Total Square Cm 1.10 -Wound/Ulcer Outcome Not Healed -Ulcer Cleansing Rinsed/ Irrigated with Saline -Foul Odor after Cleansing No -Bioengineered Tissue No -Topical Lidocaine (%) 4 -Bleeding Controlled with Pressure -Treatment Response Procedure Tolerated Well #3 R Med LE -Time 09:51 -Correct Patient Yes -Correct Side, Site, Position Yes -Correct Procedure Yes -Procedure Performed Yes -Type of Procedure Debridement -Clinical Debridement Subcutaneous -Post Debridement Size (cm) - Length 2.9 -Post Debridement Size (cm) - Width 1.1 -Post Debridement Size (cm) - Depth 0.3 -Total Square Cm 3.19 -Wound/Ulcer Outcome Not Healed -Ulcer Cleansing Rinsed/ Irrigated with Saline -Foul Odor after Cleansing No -Bioengineered Tissue No -Topical Lidocaine (%) 4 -Bleeding Controlled with Pressure -Treatment Response Procedure Tolerated Well #2 R [place] Cluster -Time 09:51 -Correct Patient Yes -Correct Side, Site, Position Yes -Correct Procedure Yes -Procedure Performed Yes -Type of Procedure Debridement -Clinical Debridement Subcutaneous -Post Debridement Size (cm) - Length 22.0 -Post Debridement Size (cm) - Width 3.6 -Post Debridement Size (cm) - Depth 0.1 -Total Square Cm 79.20 -Wound/Ulcer Outcome Not Healed -Ulcer Cleansing Rinsed/ Irrigated with Saline -Foul Odor after Cleansing No -Bioengineered Tissue No -Topical Lidocaine (%) 4 -Bleeding Controlled with Pressure -Treatment Response Procedure Tolerated Well #1 R 2nd toe amp/Arch/ Med Ankle -Time 09:51 -Correct Patient Yes -Correct Side, Site, Position Yes -Correct Procedure Yes -Procedure Performed Yes -Type of Procedure Debridement -Clinical Debridement Subcutaneous -Post Debridement Size (cm) - Length 29.6 -Post Debridement Size (cm) - Width 3.4 -Post Debridement Size (cm) - Depth 1.4 -Total Square Cm 100.64 -Wound/Ulcer Outcome Not Healed -Ulcer Cleansing Rinsed/ Irrigated with Saline -Foul Odor after Cleansing No -Bioengineered Tissue No -Topical Lidocaine (%) 4 -Bleeding Controlled with Pressure -Treatment Response Procedure Tolerated Well [See Physician Procedure note for Specifics] Pain Scale: 0-10 Numeric [Pain] -Is Patient Pain Free? Yes Musculoskeletal: No Muscle Wasting Neurological: Cranial nerves II-XII grossly intact Psych/Mental Status: Normal Affect Debridement Note Post-Debridement Measurements/Treatment WC - Nurse 2 - General Ulcer CM Notes Start: 09/28/18 09:15 Freq: Status: Active Protocol: Activity Type Activity Date Activity User E-Sign Co-Sign Detail Recorded Client Recorded Date Recorded By Document 09/28/18 10:06 TM [id number] 09/28/18 10:15 TM Document 09/28/18 10:41 MW [id number] 09/28/18 10:51 MW Document 10/05/18 10:10 CS [id number] 10/05/18 10:11 CS Document 10/05/18 15:32 TM [id number] 10/05/18 15:36 TM Document 10/12/18 09:39 TM [id number] 10/12/18 09:52 TM Document 10/12/18 10:02 MW [id number] 10/12/18 10:07 MW 09/28/18 09/28/18 10/05/18 10:06 10:41 10:10 Wound Center Nurse 2 #10 right heel -Time 10:13 -Correct Patient Yes -Correct Side, Site, Position Yes -Correct Procedure Yes -Procedure Performed Yes -Type of Procedure Debridement -Clinical Debridement Subcutaneous -Post Debridement Size (cm) - Length 1.4 -Post Debridement Size (cm) - Width 1.0 -Post Debridement Size (cm) - Depth 0.1 -Total Square Cm 1.40 -Wound/Ulcer Outcome Not Healed -Ulcer Cleansing Rinsed/ Irrigated with Saline -Foul Odor after Cleansing No -Bioengineered Tissue No -Topical Lidocaine (%) 4 -Bleeding Controlled with Pressure -Treatment Response Procedure Tolerated Well 9.L knee -Time 10:42 10:10 -Correct Patient Yes Yes -Correct Side, Site, Position Yes Yes -Correct Procedure Yes Yes -Procedure Performed Yes Yes -Type of Procedure Debridement Debridement -Clinical Debridement Subcutaneous Subcutaneous -Post Debridement Size (cm) - Length 0.2 0.4 -Post Debridement Size (cm) - Width 0.6 0.5 -Post Debridement Size (cm) - Depth 0.1 0.2 -Total Square Cm 0.12 0.20 -Wound/Ulcer Outcome Not Healed Not Healed -Ulcer Cleansing Rinsed/ Rinsed/ Irrigated with Irrigated with Saline Saline -Foul Odor after Cleansing No No -Bioengineered Tissue No No -Bleeding Controlled with Pressure NA -Treatment Response Procedure Procedure Tolerated Well Tolerated Well #8 r Knee -Time 10:42 10:10 -Correct Patient Yes Yes -Correct Side, Site, Position Yes Yes -Correct Procedure Yes Yes -Procedure Performed Yes Yes -Type of Procedure Debridement Debridement -Clinical Debridement Subcutaneous Subcutaneous -Post Debridement Size (cm) - Length 1.2 1 -Post Debridement Size (cm) - Width 1.7 1.2 -Post Debridement Size (cm) - Depth 0.3 0.2 -Total Square Cm 2.04 1.2 -Wound/Ulcer Outcome Not Healed Not Healed -Ulcer Cleansing Rinsed/ Not Cleansed Irrigated with Saline -Foul Odor after Cleansing No No -Bioengineered Tissue No No -Bleeding Controlled with Pressure NA -Treatment Response Procedure Procedure Tolerated Well Tolerated Well #6 L Post -Time 10:09 -Correct Patient Yes -Correct Side, Site, Position Yes -Correct Procedure Yes -Procedure Performed Yes -Type of Procedure Debridement -Clinical Debridement Muscle -Post Debridement Size (cm) - Length 21.1 -Post Debridement Size (cm) - Width 2.1 -Post Debridement Size (cm) - Depth 0.5 -Total Square Cm 44.31 -Wound/Ulcer Outcome Not Healed -Ulcer Cleansing Rinsed/ Irrigated with Saline -Foul Odor after Cleansing No -Bioengineered Tissue No -Topical Lidocaine (%) 4 -Bleeding Controlled with Pressure -Treatment Response Procedure Tolerated Well #5 R Lat LE -Time 10:09 -Correct Patient Yes -Correct Side, Site, Position Yes -Correct Procedure Yes -Procedure Performed Yes -Type of Procedure Debridement -Clinical Debridement Subcutaneous -Post Debridement Size (cm) - Length 3.2 -Post Debridement Size (cm) - Width 1.8 -Post Debridement Size (cm) - Depth 0.1 -Total Square Cm 5.76 -Wound/Ulcer Outcome Not Healed -Ulcer Cleansing Rinsed/ Irrigated with Saline -Foul Odor after Cleansing No -Bioengineered Tissue No -Topical Lidocaine (%) 4 -Bleeding Controlled with Pressure -Treatment Response Procedure Tolerated Well #4 R post LE -Time 10:10 -Correct Patient Yes -Correct Side, Site, Position Yes -Correct Procedure Yes -Procedure Performed Yes -Type of Procedure Debridement -Clinical Debridement Subcutaneous -Post Debridement Size (cm) - Length 1.3 -Post Debridement Size (cm) - Width 1.1 -Post Debridement Size (cm) - Depth 0.1 -Total Square Cm 1.43 -Wound/Ulcer Outcome Not Healed -Ulcer Cleansing Rinsed/ Irrigated with Saline -Foul Odor after Cleansing No -Bioengineered Tissue No -Topical Lidocaine (%) 4 -Bleeding Controlled with Pressure -Treatment Response Procedure Tolerated Well #3 R Med LE -Time 10:10 -Correct Patient Yes -Correct Side, Site, Position Yes -Correct Procedure Yes -Procedure Performed Yes -Type of Procedure Debridement -Clinical Debridement Subcutaneous -Post Debridement Size (cm) - Length 3.6 -Post Debridement Size (cm) - Width 1.6 -Post Debridement Size (cm) - Depth 0.3 -Total Square Cm 5.76 -Wound/Ulcer Outcome Not Healed -Ulcer Cleansing Rinsed/ Irrigated with Saline -Foul Odor after Cleansing No -Bioengineered Tissue No -Topical Lidocaine (%) 4 -Bleeding Controlled with Pressure -Treatment Response Procedure Tolerated Well #2 R [place] Cluster -Time 10:11 -Correct Patient Yes -Correct Side, Site, Position Yes -Correct Procedure Yes -Procedure Performed Yes -Type of Procedure Debridement -Clinical Debridement Subcutaneous -Post Debridement Size (cm) - Length 15.6 -Post Debridement Size (cm) - Width 3.9 -Post Debridement Size (cm) - Depth 0.1 -Total Square Cm 60.84 -Wound/Ulcer Outcome Not Healed -Ulcer Cleansing Rinsed/ Irrigated with Saline -Foul Odor after Cleansing No -Bioengineered Tissue No -Topical Lidocaine (%) 4 -Bleeding Controlled with Pressure -Treatment Response Procedure Tolerated Well #1 R 2nd toe amp/Arch/ Med Ankle -Time 10:11 -Correct Patient Yes -Correct Side, Site, Position Yes -Correct Procedure Yes -Procedure Performed Yes -Type of Procedure Debridement -Clinical Debridement Subcutaneous -Post Debridement Size (cm) - Length 29.1 -Post Debridement Size (cm) - Width 2.9 -Post Debridement Size (cm) - Depth 1.3 -Total Square Cm 84.39 -Wound/Ulcer Outcome Not Healed -Ulcer Cleansing Rinsed/ Irrigated with Saline -Foul Odor after Cleansing No -Bioengineered Tissue No -Topical Lidocaine (%) 4 -Bleeding Controlled with Pressure -Treatment Response Procedure Tolerated Well Pain Scale: 0-10 Numeric Is Patient Pain Free? Yes 10/05/18 10/12/18 10/12/18 15:32 09:39 10:02 Wound Center Nurse 2 #10 right heel -Time 15:32 09:49 -Correct Patient Yes Yes -Correct Side, Site, Position Yes Yes -Correct Procedure Yes Yes -Procedure Performed Yes Yes -Type of Procedure Debridement Debridement -Clinical Debridement Subcutaneous Subcutaneous -Post Debridement Size (cm) - Length 0.6 1.0 -Post Debridement Size (cm) - Width 1.0 0.8 -Post Debridement Size (cm) - Depth 0.2 0.2 -Total Square Cm 0.60 0.80 -Wound/Ulcer Outcome Not Healed Not Healed -Ulcer Cleansing Rinsed/ Rinsed/ Irrigated with Irrigated with Saline Saline -Foul Odor after Cleansing No No -Bioengineered Tissue No No -Topical Lidocaine (%) 4 4 -Bleeding Controlled with Pressure Pressure -Treatment Response Procedure Procedure Tolerated Well Tolerated Well 9.L knee -Time 10:03 -Correct Patient Yes -Correct Side, Site, Position Yes -Correct Procedure Yes -Procedure Performed Yes -Type of Procedure Debridement -Clinical Debridement Subcutaneous -Post Debridement Size (cm) - Length 0.2 -Post Debridement Size (cm) - Width 0.4 -Post Debridement Size (cm) - Depth 0.2 -Total Square Cm 0.08 -Wound/Ulcer Outcome Not Healed -Ulcer Cleansing Rinsed/ Irrigated with Saline -Foul Odor after Cleansing No -Bioengineered Tissue No -Bleeding Controlled with Pressure -Treatment Response Procedure Tolerated Well #8 r Knee -Time 10:03 -Correct Patient Yes -Correct Side, Site, Position Yes -Correct Procedure Yes -Procedure Performed Yes -Type of Procedure Debridement -Clinical Debridement Subcutaneous -Post Debridement Size (cm) - Length 1.1 -Post Debridement Size (cm) - Width 1.1 -Post Debridement Size (cm) - Depth 0.3 -Total Square Cm 1.21 -Wound/Ulcer Outcome Not Healed -Ulcer Cleansing Rinsed/ Irrigated with Saline -Foul Odor after Cleansing No -Bioengineered Tissue No -Bleeding Controlled with Pressure -Treatment Response Procedure Tolerated Well #6 L Post -Time 15:32 09:49 -Correct Patient Yes Yes -Correct Side, Site, Position Yes Yes -Correct Procedure Yes Yes -Procedure Performed Yes Yes -Type of Procedure Debridement Debridement -Clinical Debridement Subcutaneous Subcutaneous -Post Debridement Size (cm) - Length 14.3 21.6 -Post Debridement Size (cm) - Width 2.7 2.6 -Post Debridement Size (cm) - Depth 0.2 0.2 -Total Square Cm 38.61 56.16 -Wound/Ulcer Outcome Not Healed Not Healed -Ulcer Cleansing Rinsed/ Rinsed/ Irrigated with Irrigated with Saline Saline -Foul Odor after Cleansing No No -Bioengineered Tissue No No -Topical Lidocaine (%) 4 4 -Bleeding Controlled with Pressure Pressure -Treatment Response Procedure Procedure Tolerated Well Tolerated Well #5 R Lat LE -Time 15:33 09:50 -Correct Patient Yes Yes -Correct Side, Site, Position Yes Yes -Correct Procedure Yes Yes -Procedure Performed Yes Yes -Type of Procedure Debridement Debridement -Clinical Debridement Subcutaneous Subcutaneous -Post Debridement Size (cm) - Length 2.6 2.5 -Post Debridement Size (cm) - Width 2.1 2.0 -Post Debridement Size (cm) - Depth 0.2 0.2 -Total Square Cm 5.46 5.00 -Wound/Ulcer Outcome Not Healed Not Healed -Ulcer Cleansing Rinsed/ Rinsed/ Irrigated with Irrigated with Saline Saline -Foul Odor after Cleansing No No -Bioengineered Tissue No No -Topical Lidocaine (%) 4 -Bleeding Controlled with Pressure Pressure -Treatment Response Procedure Procedure Tolerated Well Tolerated Well #4 R post LE -Time 15:33 09:50 -Correct Patient Yes Yes -Correct Side, Site, Position Yes Yes -Correct Procedure Yes Yes -Procedure Performed Yes Yes -Type of Procedure Debridement Debridement -Clinical Debridement Subcutaneous Subcutaneous -Post Debridement Size (cm) - Length 3.3 1.1 -Post Debridement Size (cm) - Width 1.1 1.0 -Post Debridement Size (cm) - Depth 0.3 0.2 -Total Square Cm 3.63 1.10 -Wound/Ulcer Outcome Not Healed Not Healed -Ulcer Cleansing Rinsed/ Rinsed/ Irrigated with Irrigated with Saline Saline -Foul Odor after Cleansing No No -Bioengineered Tissue No No -Topical Lidocaine (%) 4 4 -Bleeding Controlled with Pressure Pressure -Treatment Response Procedure Procedure Tolerated Well Tolerated Well #3 R Med LE -Time 15:34 09:51 -Correct Patient Yes Yes -Correct Side, Site, Position Yes Yes -Correct Procedure Yes Yes -Procedure Performed Yes Yes -Type of Procedure Debridement Debridement -Clinical Debridement Subcutaneous Subcutaneous -Post Debridement Size (cm) - Length 1.2 2.9 -Post Debridement Size (cm) - Width 1.0 1.1 -Post Debridement Size (cm) - Depth 0.2 0.3 -Total Square Cm 1.20 3.19 -Wound/Ulcer Outcome Not Healed Not Healed -Ulcer Cleansing Rinsed/ Rinsed/ Irrigated with Irrigated with Saline Saline -Foul Odor after Cleansing No No -Bioengineered Tissue No No -Topical Lidocaine (%) 4 4 -Bleeding Controlled with Pressure Pressure -Treatment Response Procedure Procedure Tolerated Well Tolerated Well #2 R [place] Cluster -Time 15:34 09:51 -Correct Patient Yes Yes -Correct Side, Site, Position Yes Yes -Correct Procedure Yes Yes -Procedure Performed Yes Yes -Type of Procedure Debridement Debridement -Clinical Debridement Subcutaneous Subcutaneous -Post Debridement Size (cm) - Length 22.1 22.0 -Post Debridement Size (cm) - Width 3.8 3.6 -Post Debridement Size (cm) - Depth 0.2 0.1 -Total Square Cm 83.98 79.20 -Wound/Ulcer Outcome Not Healed Not Healed -Ulcer Cleansing Rinsed/ Rinsed/ Irrigated with Irrigated with Saline Saline -Foul Odor after Cleansing No No -Bioengineered Tissue No No -Topical Lidocaine (%) 4 4 -Bleeding Controlled with Pressure Pressure -Treatment Response Procedure Procedure Tolerated Well Tolerated Well #1 R 2nd toe amp/Arch/ Med Ankle -Time 15:35 09:51 -Correct Patient Yes Yes -Correct Side, Site, Position Yes Yes -Correct Procedure Yes Yes -Procedure Performed Yes Yes -Type of Procedure Debridement Debridement -Clinical Debridement Subcutaneous Subcutaneous -Post Debridement Size (cm) - Length 29.2 29.6 -Post Debridement Size (cm) - Width 3.0 3.4 -Post Debridement Size (cm) - Depth 1.3 1.4 -Total Square Cm 87.60 100.64 -Wound/Ulcer Outcome Not Healed Not Healed -Ulcer Cleansing Rinsed/ Rinsed/ Irrigated with Irrigated with Saline Saline -Foul Odor after Cleansing No No -Bioengineered Tissue No No -Topical Lidocaine (%) 4 4 -Bleeding Controlled with Pressure Pressure -Treatment Response Procedure Procedure Tolerated Well Tolerated Well Pain Scale: 0-10 Numeric Is Patient Pain Free? Yes Yes Wound debrided: Left Knee Wound Grade/Stage: Stage II Type of Debridement: Excisional debridement Anesthesia Used: 4% Lidocaine Solution Depth: Down to and including healthy tissue, in the subcutaneous layer Percentage of wound debrided: 100 Instrument Used: 3mm curette Tissue Removed: Slough and devitalized tissue Severity: Fat Layer Exposed Amount of bleeding with debridement: Mild Bleeding Controlled with: Pressure Patient tolerated procedure well - Additional Wound Wound debrided: Right knee Wound Grade/Stage: Stage III Type of Debridement: Excisional debridement Anesthesia Used: 4% Lidocaine Solution Depth: Down to and including healthy tissue, in the subcutaneous layer Percentage of wound debrided: 100 Instrument Used: 3mm curette Tissue Removed: Slough and devitalized tissue Severity: Fat Layer Exposed Amount of bleeding with debridement: Mild Bleeding Controlled with: Pressure Patient tolerated procedure: Patient tolerated procedure well Assessment/Plan Active Problems (Last Updated 09/28/18 @ 12:41 by Geraldine Steele) Ulcer of right foot with fat layer exposed (Chronic) Delayed wound healing (Chronic) 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 (Chronic) Ulcer of right lower extremity with fat layer exposed (Chronic) Ulcer of left lower extremity with fat layer exposed (Chronic) Type 2 diabetes mellitus with diabetic polyneuropathy (Chronic) Localized edema (Chronic) Malnutrition (Chronic) Assessment: Open second and third ray resection secondary to 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 Diabetic neuropathy. Malnutrition suspected. 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 Delayed healing. Gait impairment and fall risk. Other comorbidities, right knee ulcer, tendon exposed (Dr. Gilbert managed), left knee ulcer (Dr. Gilbert managed) Plan: Left knee is improving. Right knee with some pain and discharge per his and patient. No significant tendernss or dscharge apprecaited. Debridement done as documenetd above, procedure was well tolerated. Cultures taken from the right knee. Continue pomogran with adaptic. Change every third day. Elevate lower extremity when seated and in bed. Continue increased protein intake and management of lower extremity ulcers per Dr. Gruber. Follow up in 1 week with me. Advised to call with any questions or concerns.
--- NOTE | 2018-10-12 11:02 | PCM.WC.PN ---
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 Code(s): L97.923 - Non-pressure chronic ulcer of unspecified part of left lower leg with necrosis of muscle (5) Delayed wound healing Status: Chronic Code(s): T14.8XXD - Other injury of unspecified body region, subsequent encounter (6) Vasculitis Status: Chronic Code(s): I77.6 - Arteritis, unspecified (7) Type 2 diabetes mellitus with diabetic polyneuropathy Status: Chronic Code(s): E11.42 - Type 2 diabetes mellitus with diabetic polyneuropathy (8) Localized edema Status: Chronic Code(s): R60.0 - Localized edema (9) Malnutrition Status: Chronic Code(s): E46 - Unspecified protein-calorie malnutrition Type of Wound Chief Complaint: right and left Leg ulcers and right foot ulcer History of Wound: Mr. Arguello is a 63-year-old male with multiple comorbidities follows up for delayed healing ulcers to the right foot as well as bilateral legs. It is noted he previously had widespread debridements and fasciotomies performed to bilateral lower extremities secondary to life-threatening and limb threatening infection; this was previously performed at [facility]. He continues to follow with Dr. Gilbert for her knee ulcers, and I saw him today for his other ulcer sites. He has been applying Santyl to both the wounds, Aquacel to leg ulcers, and wound VAC to right foot defect with quality and size reduction improvement. He denies chills, fever or otherwise feeling of unwell. He presents today with his . He refuses advanced wound care product application. He refuses hyperbaric oxygen therapy treatment. Progress of Wound: improving bilateral leg ulcers. improving right foot ulcer - Physical Exam Vital Signs Temp Pulse Resp BP 95 F L 103 H 16 127/89 H 10/12/18 08:41 10/12/18 08:41 10/12/18 08:41 10/12/18 08:41 General: Alert, Oriented x3, Cooperative Extremities: No cyanosis, No edema, Capillary Refill Less than 3 Seconds, No Calf Tenderness - negative robin and winter signs bilateral, Diminished Peripheral Pulses Skin: Ulcer/ Wound - no purulence, no erythema, no streaking, no odor, no infection, no exposed bone. peripheral skin is hairless and atrophic, - - there is some exposed fascia tissue to the right foot still that is devitalzied Wound Measurements and Assessment WC - Nurse 1 - General Ulcer Measurement Start: 09/28/18 09:15 Freq: Status: Active Protocol: Activity Type Activity Date Activity User E-Sign Co-Sign Detail Recorded Client Recorded Date Recorded By Document 10/12/18 08:41 [facility] [id number] 10/12/18 09:21 [facility] 10/12/18 08:41 Wound Center Nurse 1 [Ulcer Assessment] #10 right heel -Combined with other wound No -Current Size (cm) - Length 0.9 -Current Size (cm) - Width 0.7 -Current Size (cm) - Depth 0.2 -Total Square Cm 0.63 -Date of Last Picture (Recall this 10/12/18 field) -Photo Taken Yes -Epithelialization None Present -Tunneling No -Undermining/Tunneling No -Circular Undermining No -Exudate Amt Small (1-33%) -Exudate Type Serosanguineous -Wound Margin Distinct, Outline Attached -Granulation Amt Small (1-33%) -Granulation Quality [place] -Slough/Fibrin Yes -Necrosis Amt Large (67-100%) -Necrotic Tissue Type Adherent Slough -Texture (Lisa-wound Skin Appearance) Scarring -Moisture (Lisa-wound Skin Appearance Dry/Scaly ) -Color (Lisa-wound Skin Appearance) Assessed -Temperature (Lisa-wound Skin No Abnormality Appearance) (Pt Warm) -Tenderness on Palpation (Lisa-wound No Skin Appearance) -Ulcer Cleansing Wound Cleanser -Foul Odor after Cleansing No -Anesthetic Used 4% Lidocaine Solution 9.L knee -Combined with other wound No -Current Size (cm) - Length 0.2 -Current Size (cm) - Width 0.4 -Current Size (cm) - Depth 0.2 -Total Square Cm 0.08 -Date of Last Picture (Recall this 10/12/18 field) -Photo Taken Yes -Epithelialization None Present -Tunneling No -Undermining/Tunneling No -Circular Undermining No -Exudate Amt Small (1-33%) -Exudate Type Purulent -Wound Margin Distinct, Outline Attached -Granulation Amt Small (1-33%) -Granulation Quality [place] -Slough/Fibrin Yes -Necrosis Amt Large (67-100%) -Necrotic Tissue Type Adherent Slough -Texture (Lisa-wound Skin Appearance) Scarring -Moisture (Lisa-wound Skin Appearance Dry/Scaly ) -Color (Lisa-wound Skin Appearance) Assessed -Temperature (Lisa-wound Skin No Abnormality Appearance) (Pt Warm) -Tenderness on Palpation (Lisa-wound No Skin Appearance) -Ulcer Cleansing Rinsed/ Irrigated with Saline -Foul Odor after Cleansing No -Anesthetic Used 4% Lidocaine Solution #8 r Knee -Combined with other wound No -Current Size (cm) - Length 1.2 -Current Size (cm) - Width 1.4 -Current Size (cm) - Depth 0.3 -Total Square Cm 1.68 -Date of Last Picture (Recall this 10/12/18 field) -Photo Taken Yes -Epithelialization None Present -Undermining/Tunneling Yes -Undermining/Tunneling Starts (O' 6 clock) -Undermining/Tunneling Ends (O'clock) 3 -Maximum Distance (cm) 0.5 -Circular Undermining No -Exudate Amt Small (1-33%) -Exudate Type Purulent -Wound Margin Thickened -Granulation Amt Small (1-33%) -Granulation Quality [place] -Slough/Fibrin Yes -Necrosis Amt Large (67-100%) -Necrotic Tissue Type Adherent Slough -Texture (Lisa-wound Skin Appearance) Localized Edema Scarring -Moisture (Lisa-wound Skin Appearance Dry/Scaly ) -Color (Lisa-wound Skin Appearance) Assessed -Temperature (Lisa-wound Skin No Abnormality Appearance) (Pt Warm) -Tenderness on Palpation (Lisa-wound No Skin Appearance) -Ulcer Cleansing Wound Cleanser -Foul Odor after Cleansing No -Anesthetic Used 4% Lidocaine Solution #6 L Post -Combined with other wound No -Current Size (cm) - Length 21.5 -Current Size (cm) - Width 2.5 -Current Size (cm) - Depth 0.2 -Total Square Cm 53.75 -Date of Last Picture (Recall this 10/12/18 field) -Photo Taken Yes -Epithelialization None Present -Tunneling No -Undermining/Tunneling No -Circular Undermining No -Exudate Amt Small (1-33%) -Exudate Type Serosanguineous -Wound Margin Distinct, Outline Attached -Granulation Amt Large (67-100%) -Granulation Quality [place] -Slough/Fibrin Yes -Necrosis Amt Small (1-33%) -Necrotic Tissue Type Adherent Slough -Texture (Lisa-wound Skin Appearance) Scarring -Moisture (Lisa-wound Skin Appearance Dry/Scaly ) -Color (Lisa-wound Skin Appearance) Assessed Hemosiderin Staining -Temperature (Lisa-wound Skin No Abnormality Appearance) (Pt Warm) -Tenderness on Palpation (Lisa-wound No Skin Appearance) -Ulcer Cleansing Wound Cleanser -Foul Odor after Cleansing No -Anesthetic Used 4% Lidocaine Solution #5 R Lat LE -Combined with other wound No -Current Size (cm) - Length 2.4 -Current Size (cm) - Width 1.9 -Current Size (cm) - Depth 0.2 -Total Square Cm 4.56 -Date of Last Picture (Recall this 10/12/18 field) -Photo Taken Yes -Epithelialization None Present -Tunneling No -Undermining/Tunneling No -Circular Undermining No -Exudate Amt Small (1-33%) -Exudate Type Serosanguineous -Wound Margin Distinct, Outline Attached -Granulation Amt Medium (34-66%) -Granulation Quality [place] -Slough/Fibrin Yes -Necrosis Amt Medium (34-66%) -Necrotic Tissue Type Adherent Slough -Texture (Lisa-wound Skin Appearance) Scarring -Moisture (Lisa-wound Skin Appearance Dry/Scaly ) -Color (Lisa-wound Skin Appearance) Hemosiderin Staining -Temperature (Lisa-wound Skin No Abnormality Appearance) (Pt Warm) -Tenderness on Palpation (Lisa-wound No Skin Appearance) -Ulcer Cleansing Wound Cleanser -Foul Odor after Cleansing No -Anesthetic Used 4% Lidocaine Solution #4 R post LE -Combined with other wound No -Current Size (cm) - Length 1 -Current Size (cm) - Width 0.9 -Current Size (cm) - Depth 0.2 -Total Square Cm 0.9 -Date of Last Picture (Recall this 10/12/18 field) -Photo Taken Yes -Epithelialization None Present -Tunneling No -Undermining/Tunneling No -Circular Undermining No -Exudate Amt Small (1-33%) -Exudate Type Serosanguineous -Wound Margin Distinct, Outline Attached -Granulation Amt Medium (34-66%) -Granulation Quality [place] -Slough/Fibrin Yes -Necrosis Amt Medium (34-66%) -Necrotic Tissue Type Adherent Slough -Texture (Lisa-wound Skin Appearance) Scarring -Moisture (Lisa-wound Skin Appearance Dry/Scaly ) -Color (Lisa-wound Skin Appearance) Hemosiderin Staining -Temperature (Lisa-wound Skin No Abnormality Appearance) (Pt Warm) -Tenderness on Palpation (Lisa-wound No Skin Appearance) -Ulcer Cleansing Wound Cleanser -Foul Odor after Cleansing No -Anesthetic Used 4% Lidocaine Solution #3 R Med LE -Combined with other wound No -Current Size (cm) - Length 2.8 -Current Size (cm) - Width 1 -Current Size (cm) - Depth 0.3 -Total Square Cm 2.8 -Date of Last Picture (Recall this 10/12/18 field) -Photo Taken Yes -Epithelialization None Present -Tunneling No -Undermining/Tunneling No -Circular Undermining No -Exudate Amt Small (1-33%) -Exudate Type Serosanguineous -Wound Margin Distinct, Outline Attached -Granulation Amt Medium (34-66%) -Granulation Quality [place] -Slough/Fibrin Yes -Necrosis Amt Medium (34-66%) -Necrotic Tissue Type Adherent Slough -Texture (Lisa-wound Skin Appearance) Scarring -Moisture (Lisa-wound Skin Appearance Dry/Scaly ) -Color (Lisa-wound Skin Appearance) Hemosiderin Staining -Temperature (Lisa-wound Skin No Abnormality Appearance) (Pt Warm) -Tenderness on Palpation (Lisa-wound No Skin Appearance) -Ulcer Cleansing Wound Cleanser -Foul Odor after Cleansing No -Anesthetic Used 4% Lidocaine Solution #2 R [place] Cluster -Combined with other wound No -Current Size (cm) - Length 21.9 -Current Size (cm) - Width 3.5 -Current Size (cm) - Depth 0.1 -Total Square Cm 76.65 -Date of Last Picture (Recall this 10/12/18 field) -Photo Taken Yes -Epithelialization Small 1-33% -Tunneling No -Undermining/Tunneling No -Circular Undermining No -Exudate Amt Medium (34-66%) -Exudate Type Serosanguineous -Wound Margin Distinct, Outline Attached -Granulation Amt Medium (34-66%) -Granulation Quality Red -Slough/Fibrin Yes -Necrosis Amt Medium (34-66%) -Necrotic Tissue Type Adherent Slough -Texture (Lisa-wound Skin Appearance) Scarring -Moisture (Lisa-wound Skin Appearance Dry/Scaly ) -Color (Lisa-wound Skin Appearance) Hemosiderin Staining -Temperature (Lisa-wound Skin No Abnormality Appearance) (Pt Warm) -Tenderness on Palpation (Lisa-wound No Skin Appearance) -Ulcer Cleansing Wound Cleanser -Foul Odor after Cleansing No -Anesthetic Used 4% Lidocaine Solution #1 R 2nd toe amp/Arch/ Med Ankle -Combined with other wound No -Current Size (cm) - Length 29.5 -Current Size (cm) - Width 3.3 -Current Size (cm) - Depth 1.4 -Total Square Cm 97.35 -Date of Last Picture (Recall this 10/12/18 field) -Photo Taken Yes -Epithelialization None Present -Tunneling No -Undermining/Tunneling No -Circular Undermining No -Exudate Amt Small (1-33%) -Exudate Type Serosanguineous -Wound Margin Distinct, Outline Attached -Granulation Amt Large (67-100%) -Granulation Quality Red -Slough/Fibrin Yes -Necrosis Amt Small (1-33%) -Necrotic Tissue Type Adherent Slough -Texture (Lisa-wound Skin Appearance) Scarring -Moisture (Lisa-wound Skin Appearance Maceration ) Dry/Scaly -Color (Lisa-wound Skin Appearance) Palor -Temperature (Lisa-wound Skin No Abnormality Appearance) (Pt Warm) -Tenderness on Palpation (Lsia-wound No Skin Appearance) -Ulcer Cleansing Wound Cleanser -Foul Odor after Cleansing No -Anesthetic Used 4% Lidocaine Solution [Edema Assessment] -Lower Limb Edema Present No -Right Calf (cm) 34.5 -Right Ankle (cm) 21.9 -Left Calf (cm) 33.1 -Left Ankle (cm) 20.6 WC - Nurse 2 - General Ulcer CM Notes Start: 09/28/18 09:15 Freq: Status: Active Protocol: Activity Type Activity Date Activity User E-Sign Co-Sign Detail Recorded Client Recorded Date Recorded By Document 10/12/18 09:39 TM [id number] 10/12/18 09:52 TM Document 10/12/18 10:02 MW [id number] 10/12/18 10:07 MW 10/12/18 10/12/18 09:39 10:02 Wound Center Nurse 2 [Procedure/Treatment] #10 right heel -Time 09:49 -Correct Patient Yes -Correct Side, Site, Position Yes -Correct Procedure Yes -Procedure Performed Yes -Type of Procedure Debridement -Clinical Debridement Subcutaneous -Post Debridement Size (cm) - Length 1.0 -Post Debridement Size (cm) - Width 0.8 -Post Debridement Size (cm) - Depth 0.2 -Total Square Cm 0.80 -Wound/Ulcer Outcome Not Healed -Ulcer Cleansing Rinsed/ Irrigated with Saline -Foul Odor after Cleansing No -Bioengineered Tissue No -Topical Lidocaine (%) 4 -Bleeding Controlled with Pressure -Treatment Response Procedure Tolerated Well 9.L knee -Time 10:03 -Correct Patient Yes -Correct Side, Site, Position Yes -Correct Procedure Yes -Procedure Performed Yes -Type of Procedure Debridement -Clinical Debridement Subcutaneous -Post Debridement Size (cm) - Length 0.2 -Post Debridement Size (cm) - Width 0.4 -Post Debridement Size (cm) - Depth 0.2 -Total Square Cm 0.08 -Wound/Ulcer Outcome Not Healed -Ulcer Cleansing Rinsed/ Irrigated with Saline -Foul Odor after Cleansing No -Bioengineered Tissue No -Bleeding Controlled with Pressure -Treatment Response Procedure Tolerated Well #8 r Knee -Time 10:03 -Correct Patient Yes -Correct Side, Site, Position Yes -Correct Procedure Yes -Procedure Performed Yes -Type of Procedure Debridement -Clinical Debridement Subcutaneous -Post Debridement Size (cm) - Length 1.1 -Post Debridement Size (cm) - Width 1.1 -Post Debridement Size (cm) - Depth 0.3 -Total Square Cm 1.21 -Wound/Ulcer Outcome Not Healed -Ulcer Cleansing Rinsed/ Irrigated with Saline -Foul Odor after Cleansing No -Bioengineered Tissue No -Bleeding Controlled with Pressure -Treatment Response Procedure Tolerated Well #6 L Post -Time 09:49 -Correct Patient Yes -Correct Side, Site, Position Yes -Correct Procedure Yes -Procedure Performed Yes -Type of Procedure Debridement -Clinical Debridement Subcutaneous -Post Debridement Size (cm) - Length 21.6 -Post Debridement Size (cm) - Width 2.6 -Post Debridement Size (cm) - Depth 0.2 -Total Square Cm 56.16 -Wound/Ulcer Outcome Not Healed -Ulcer Cleansing Rinsed/ Irrigated with Saline -Foul Odor after Cleansing No -Bioengineered Tissue No -Topical Lidocaine (%) 4 -Bleeding Controlled with Pressure -Treatment Response Procedure Tolerated Well #5 R Lat LE -Time 09:50 -Correct Patient Yes -Correct Side, Site, Position Yes -Correct Procedure Yes -Procedure Performed Yes -Type of Procedure Debridement -Clinical Debridement Subcutaneous -Post Debridement Size (cm) - Length 2.5 -Post Debridement Size (cm) - Width 2.0 -Post Debridement Size (cm) - Depth 0.2 -Total Square Cm 5.00 -Wound/Ulcer Outcome Not Healed -Ulcer Cleansing Rinsed/ Irrigated with Saline -Foul Odor after Cleansing No -Bioengineered Tissue No -Topical Lidocaine (%) 4 -Bleeding Controlled with Pressure -Treatment Response Procedure Tolerated Well #4 R post LE -Time 09:50 -Correct Patient Yes -Correct Side, Site, Position Yes -Correct Procedure Yes -Procedure Performed Yes -Type of Procedure Debridement -Clinical Debridement Subcutaneous -Post Debridement Size (cm) - Length 1.1 -Post Debridement Size (cm) - Width 1.0 -Post Debridement Size (cm) - Depth 0.2 -Total Square Cm 1.10 -Wound/Ulcer Outcome Not Healed -Ulcer Cleansing Rinsed/ Irrigated with Saline -Foul Odor after Cleansing No -Bioengineered Tissue No -Topical Lidocaine (%) 4 -Bleeding Controlled with Pressure -Treatment Response Procedure Tolerated Well #3 R Med LE -Time 09:51 -Correct Patient Yes -Correct Side, Site, Position Yes -Correct Procedure Yes -Procedure Performed Yes -Type of Procedure Debridement -Clinical Debridement Subcutaneous -Post Debridement Size (cm) - Length 2.9 -Post Debridement Size (cm) - Width 1.1 -Post Debridement Size (cm) - Depth 0.3 -Total Square Cm 3.19 -Wound/Ulcer Outcome Not Healed -Ulcer Cleansing Rinsed/ Irrigated with Saline -Foul Odor after Cleansing No -Bioengineered Tissue No -Topical Lidocaine (%) 4 -Bleeding Controlled with Pressure -Treatment Response Procedure Tolerated Well #2 R [place] Cluster -Time 09:51 -Correct Patient Yes -Correct Side, Site, Position Yes -Correct Procedure Yes -Procedure Performed Yes -Type of Procedure Debridement -Clinical Debridement Subcutaneous -Post Debridement Size (cm) - Length 22.0 -Post Debridement Size (cm) - Width 3.6 -Post Debridement Size (cm) - Depth 0.1 -Total Square Cm 79.20 -Wound/Ulcer Outcome Not Healed -Ulcer Cleansing Rinsed/ Irrigated with Saline -Foul Odor after Cleansing No -Bioengineered Tissue No -Topical Lidocaine (%) 4 -Bleeding Controlled with Pressure -Treatment Response Procedure Tolerated Well #1 R 2nd toe amp/Arch/ Med Ankle -Time 09:51 -Correct Patient Yes -Correct Side, Site, Position Yes -Correct Procedure Yes -Procedure Performed Yes -Type of Procedure Debridement -Clinical Debridement Subcutaneous -Post Debridement Size (cm) - Length 29.6 -Post Debridement Size (cm) - Width 3.4 -Post Debridement Size (cm) - Depth 1.4 -Total Square Cm 100.64 -Wound/Ulcer Outcome Not Healed -Ulcer Cleansing Rinsed/ Irrigated with Saline -Foul Odor after Cleansing No -Bioengineered Tissue No -Topical Lidocaine (%) 4 -Bleeding Controlled with Pressure -Treatment Response Procedure Tolerated Well [See Physician Procedure note for Specifics] Pain Scale: 0-10 Numeric [Pain] -Is Patient Pain Free? Yes Musculoskeletal: No Tenderness to Palpation of Joints or Extremities, Muscle Wasting Neurological: - - lack of normal epicritic sensation via light touch noted bilateral Psych/Mental Status: Normal Affect, Appropriate Debridement Note Post-Debridement Measurements/Treatment WC - Nurse 2 - General Ulcer CM Notes Start: 09/28/18 09:15 Freq: Status: Active Protocol: Activity Type Activity Date Activity User E-Sign Co-Sign Detail Recorded Client Recorded Date Recorded By Document 09/28/18 10:06 TM [id number] 09/28/18 10:15 TM Document 09/28/18 10:41 MW [id number] 09/28/18 10:51 MW Document 10/05/18 10:10 [id number] 10/05/18 10:11 CS Document 10/05/18 15:32 TM [id number] 10/05/18 15:36 TM Document 10/12/18 09:39 TM [id number] 10/12/18 09:52 TM Document 10/12/18 10:02 MW [id number] 10/12/18 10:07 MW 09/28/18 09/28/18 10/05/18 10:06 10:41 10:10 Wound Center Nurse 2 #10 right heel -Time 10:13 -Correct Patient Yes -Correct Side, Site, Position Yes -Correct Procedure Yes -Procedure Performed Yes -Type of Procedure Debridement -Clinical Debridement Subcutaneous -Post Debridement Size (cm) - Length 1.4 -Post Debridement Size (cm) - Width 1.0 -Post Debridement Size (cm) - Depth 0.1 -Total Square Cm 1.40 -Wound/Ulcer Outcome Not Healed -Ulcer Cleansing Rinsed/ Irrigated with Saline -Foul Odor after Cleansing No -Bioengineered Tissue No -Topical Lidocaine (%) 4 -Bleeding Controlled with Pressure -Treatment Response Procedure Tolerated Well 9.L knee -Time 10:42 10:10 -Correct Patient Yes Yes -Correct Side, Site, Position Yes Yes -Correct Procedure Yes Yes -Procedure Performed Yes Yes -Type of Procedure Debridement Debridement -Clinical Debridement Subcutaneous Subcutaneous -Post Debridement Size (cm) - Length 0.2 0.4 -Post Debridement Size (cm) - Width 0.6 0.5 -Post Debridement Size (cm) - Depth 0.1 0.2 -Total Square Cm 0.12 0.20 -Wound/Ulcer Outcome Not Healed Not Healed -Ulcer Cleansing Rinsed/ Rinsed/ Irrigated with Irrigated with Saline Saline -Foul Odor after Cleansing No No -Bioengineered Tissue No No -Bleeding Controlled with Pressure NA -Treatment Response Procedure Procedure Tolerated Well Tolerated Well #8 r Knee -Time 10:42 10:10 -Correct Patient Yes Yes -Correct Side, Site, Position Yes Yes -Correct Procedure Yes Yes -Procedure Performed Yes Yes -Type of Procedure Debridement Debridement -Clinical Debridement Subcutaneous Subcutaneous -Post Debridement Size (cm) - Length 1.2 1 -Post Debridement Size (cm) - Width 1.7 1.2 -Post Debridement Size (cm) - Depth 0.3 0.2 -Total Square Cm 2.04 1.2 -Wound/Ulcer Outcome Not Healed Not Healed -Ulcer Cleansing Rinsed/ Not Cleansed Irrigated with Saline -Foul Odor after Cleansing No No -Bioengineered Tissue No No -Bleeding Controlled with Pressure NA -Treatment Response Procedure Procedure Tolerated Well Tolerated Well #6 L Post -Time 10:09 -Correct Patient Yes -Correct Side, Site, Position Yes -Correct Procedure Yes -Procedure Performed Yes -Type of Procedure Debridement -Clinical Debridement Muscle -Post Debridement Size (cm) - Length 21.1 -Post Debridement Size (cm) - Width 2.1 -Post Debridement Size (cm) - Depth 0.5 -Total Square Cm 44.31 -Wound/Ulcer Outcome Not Healed -Ulcer Cleansing Rinsed/ Irrigated with Saline -Foul Odor after Cleansing No -Bioengineered Tissue No -Topical Lidocaine (%) 4 -Bleeding Controlled with Pressure -Treatment Response Procedure Tolerated Well #5 R Lat LE -Time 10:09 -Correct Patient Yes -Correct Side, Site, Position Yes -Correct Procedure Yes -Procedure Performed Yes -Type of Procedure Debridement -Clinical Debridement Subcutaneous -Post Debridement Size (cm) - Length 3.2 -Post Debridement Size (cm) - Width 1.8 -Post Debridement Size (cm) - Depth 0.1 -Total Square Cm 5.76 -Wound/Ulcer Outcome Not Healed -Ulcer Cleansing Rinsed/ Irrigated with Saline -Foul Odor after Cleansing No -Bioengineered Tissue No -Topical Lidocaine (%) 4 -Bleeding Controlled with Pressure -Treatment Response Procedure Tolerated Well #4 R post LE -Time 10:10 -Correct Patient Yes -Correct Side, Site, Position Yes -Correct Procedure Yes -Procedure Performed Yes -Type of Procedure Debridement -Clinical Debridement Subcutaneous -Post Debridement Size (cm) - Length 1.3 -Post Debridement Size (cm) - Width 1.1 -Post Debridement Size (cm) - Depth 0.1 -Total Square Cm 1.43 -Wound/Ulcer Outcome Not Healed -Ulcer Cleansing Rinsed/ Irrigated with Saline -Foul Odor after Cleansing No -Bioengineered Tissue No -Topical Lidocaine (%) 4 -Bleeding Controlled with Pressure -Treatment Response Procedure Tolerated Well #3 R Med LE -Time 10:10 -Correct Patient Yes -Correct Side, Site, Position Yes -Correct Procedure Yes -Procedure Performed Yes -Type of Procedure Debridement -Clinical Debridement Subcutaneous -Post Debridement Size (cm) - Length 3.6 -Post Debridement Size (cm) - Width 1.6 -Post Debridement Size (cm) - Depth 0.3 -Total Square Cm 5.76 -Wound/Ulcer Outcome Not Healed -Ulcer Cleansing Rinsed/ Irrigated with Saline -Foul Odor after Cleansing No -Bioengineered Tissue No -Topical Lidocaine (%) 4 -Bleeding Controlled with Pressure -Treatment Response Procedure Tolerated Well #2 R [place] Cluster -Time 10:11 -Correct Patient Yes -Correct Side, Site, Position Yes -Correct Procedure Yes -Procedure Performed Yes -Type of Procedure Debridement -Clinical Debridement Subcutaneous -Post Debridement Size (cm) - Length 15.6 -Post Debridement Size (cm) - Width 3.9 -Post Debridement Size (cm) - Depth 0.1 -Total Square Cm 60.84 -Wound/Ulcer Outcome Not Healed -Ulcer Cleansing Rinsed/ Irrigated with Saline -Foul Odor after Cleansing No -Bioengineered Tissue No -Topical Lidocaine (%) 4 -Bleeding Controlled with Pressure -Treatment Response Procedure Tolerated Well #1 R 2nd toe amp/Arch/ Med Ankle -Time 10:11 -Correct Patient Yes -Correct Side, Site, Position Yes -Correct Procedure Yes -Procedure Performed Yes -Type of Procedure Debridement -Clinical Debridement Subcutaneous -Post Debridement Size (cm) - Length 29.1 -Post Debridement Size (cm) - Width 2.9 -Post Debridement Size (cm) - Depth 1.3 -Total Square Cm 84.39 -Wound/Ulcer Outcome Not Healed -Ulcer Cleansing Rinsed/ Irrigated with Saline -Foul Odor after Cleansing No -Bioengineered Tissue No -Topical Lidocaine (%) 4 -Bleeding Controlled with Pressure -Treatment Response Procedure Tolerated Well Pain Scale: 0-10 Numeric Is Patient Pain Free? Yes 10/05/18 10/12/18 10/12/18 15:32 09:39 10:02 Wound Center Nurse 2 #10 right heel -Time 15:32 09:49 -Correct Patient Yes Yes -Correct Side, Site, Position Yes Yes -Correct Procedure Yes Yes -Procedure Performed Yes Yes -Type of Procedure Debridement Debridement -Clinical Debridement Subcutaneous Subcutaneous -Post Debridement Size (cm) - Length 0.6 1.0 -Post Debridement Size (cm) - Width 1.0 0.8 -Post Debridement Size (cm) - Depth 0.2 0.2 -Total Square Cm 0.60 0.80 -Wound/Ulcer Outcome Not Healed Not Healed -Ulcer Cleansing Rinsed/ Rinsed/ Irrigated with Irrigated with Saline Saline -Foul Odor after Cleansing No No -Bioengineered Tissue No No -Topical Lidocaine (%) 4 4 -Bleeding Controlled with Pressure Pressure -Treatment Response Procedure Procedure Tolerated Well Tolerated Well 9.L knee -Time 10:03 -Correct Patient Yes -Correct Side, Site, Position Yes -Correct Procedure Yes -Procedure Performed Yes -Type of Procedure Debridement -Clinical Debridement Subcutaneous -Post Debridement Size (cm) - Length 0.2 -Post Debridement Size (cm) - Width 0.4 -Post Debridement Size (cm) - Depth 0.2 -Total Square Cm 0.08 -Wound/Ulcer Outcome Not Healed -Ulcer Cleansing Rinsed/ Irrigated with Saline -Foul Odor after Cleansing No -Bioengineered Tissue No -Bleeding Controlled with Pressure -Treatment Response Procedure Tolerated Well #8 r Knee -Time 10:03 -Correct Patient Yes -Correct Side, Site, Position Yes -Correct Procedure Yes -Procedure Performed Yes -Type of Procedure Debridement -Clinical Debridement Subcutaneous -Post Debridement Size (cm) - Length 1.1 -Post Debridement Size (cm) - Width 1.1 -Post Debridement Size (cm) - Depth 0.3 -Total Square Cm 1.21 -Wound/Ulcer Outcome Not Healed -Ulcer Cleansing Rinsed/ Irrigated with Saline -Foul Odor after Cleansing No -Bioengineered Tissue No -Bleeding Controlled with Pressure -Treatment Response Procedure Tolerated Well #6 L Post -Time 15:32 09:49 -Correct Patient Yes Yes -Correct Side, Site, Position Yes Yes -Correct Procedure Yes Yes -Procedure Performed Yes Yes -Type of Procedure Debridement Debridement -Clinical Debridement Subcutaneous Subcutaneous -Post Debridement Size (cm) - Length 14.3 21.6 -Post Debridement Size (cm) - Width 2.7 2.6 -Post Debridement Size (cm) - Depth 0.2 0.2 -Total Square Cm 38.61 56.16 -Wound/Ulcer Outcome Not Healed Not Healed -Ulcer Cleansing Rinsed/ Rinsed/ Irrigated with Irrigated with Saline Saline -Foul Odor after Cleansing No No -Bioengineered Tissue No No -Topical Lidocaine (%) 4 4 -Bleeding Controlled with Pressure Pressure -Treatment Response Procedure Procedure Tolerated Well Tolerated Well #5 R Lat LE -Time 15:33 09:50 -Correct Patient Yes Yes -Correct Side, Site, Position Yes Yes -Correct Procedure Yes Yes -Procedure Performed Yes Yes -Type of Procedure Debridement Debridement -Clinical Debridement Subcutaneous Subcutaneous -Post Debridement Size (cm) - Length 2.6 2.5 -Post Debridement Size (cm) - Width 2.1 2.0 -Post Debridement Size (cm) - Depth 0.2 0.2 -Total Square Cm 5.46 5.00 -Wound/Ulcer Outcome Not Healed Not Healed -Ulcer Cleansing Rinsed/ Rinsed/ Irrigated with Irrigated with Saline Saline -Foul Odor after Cleansing No No -Bioengineered Tissue No No -Topical Lidocaine (%) 4 -Bleeding Controlled with Pressure Pressure -Treatment Response Procedure Procedure Tolerated Well Tolerated Well #4 R post LE -Time 15:33 09:50 -Correct Patient Yes Yes -Correct Side, Site, Position Yes Yes -Correct Procedure Yes Yes -Procedure Performed Yes Yes -Type of Procedure Debridement Debridement -Clinical Debridement Subcutaneous Subcutaneous -Post Debridement Size (cm) - Length 3.3 1.1 -Post Debridement Size (cm) - Width 1.1 1.0 -Post Debridement Size (cm) - Depth 0.3 0.2 -Total Square Cm 3.63 1.10 -Wound/Ulcer Outcome Not Healed Not Healed -Ulcer Cleansing Rinsed/ Rinsed/ Irrigated with Irrigated with Saline Saline -Foul Odor after Cleansing No No -Bioengineered Tissue No No -Topical Lidocaine (%) 4 4 -Bleeding Controlled with Pressure Pressure -Treatment Response Procedure Procedure Tolerated Well Tolerated Well #3 R Med LE -Time 15:34 09:51 -Correct Patient Yes Yes -Correct Side, Site, Position Yes Yes -Correct Procedure Yes Yes -Procedure Performed Yes Yes -Type of Procedure Debridement Debridement -Clinical Debridement Subcutaneous Subcutaneous -Post Debridement Size (cm) - Length 1.2 2.9 -Post Debridement Size (cm) - Width 1.0 1.1 -Post Debridement Size (cm) - Depth 0.2 0.3 -Total Square Cm 1.20 3.19 -Wound/Ulcer Outcome Not Healed Not Healed -Ulcer Cleansing Rinsed/ Rinsed/ Irrigated with Irrigated with Saline Saline -Foul Odor after Cleansing No No -Bioengineered Tissue No No -Topical Lidocaine (%) 4 4 -Bleeding Controlled with Pressure Pressure -Treatment Response Procedure Procedure Tolerated Well Tolerated Well #2 R [place] Cluster -Time 15:34 09:51 -Correct Patient Yes Yes -Correct Side, Site, Position Yes Yes -Correct Procedure Yes Yes -Procedure Performed Yes Yes -Type of Procedure Debridement Debridement -Clinical Debridement Subcutaneous Subcutaneous -Post Debridement Size (cm) - Length 22.1 22.0 -Post Debridement Size (cm) - Width 3.8 3.6 -Post Debridement Size (cm) - Depth 0.2 0.1 -Total Square Cm 83.98 79.20 -Wound/Ulcer Outcome Not Healed Not Healed -Ulcer Cleansing Rinsed/ Rinsed/ Irrigated with Irrigated with Saline Saline -Foul Odor after Cleansing No No -Bioengineered Tissue No No -Topical Lidocaine (%) 4 4 -Bleeding Controlled with Pressure Pressure -Treatment Response Procedure Procedure Tolerated Well Tolerated Well #1 R 2nd toe amp/Arch/ Med Ankle -Time 15:35 09:51 -Correct Patient Yes Yes -Correct Side, Site, Position Yes Yes -Correct Procedure Yes Yes -Procedure Performed Yes Yes -Type of Procedure Debridement Debridement -Clinical Debridement Subcutaneous Subcutaneous -Post Debridement Size (cm) - Length 29.2 29.6 -Post Debridement Size (cm) - Width 3.0 3.4 -Post Debridement Size (cm) - Depth 1.3 1.4 -Total Square Cm 87.60 100.64 -Wound/Ulcer Outcome Not Healed Not Healed -Ulcer Cleansing Rinsed/ Rinsed/ Irrigated with Irrigated with Saline Saline -Foul Odor after Cleansing No No -Bioengineered Tissue No No -Topical Lidocaine (%) 4 4 -Bleeding Controlled with Pressure Pressure -Treatment Response Procedure Procedure Tolerated Well Tolerated Well Pain Scale: 0-10 Numeric Is Patient Pain Free? Yes Yes Wound debrided: foot Laterality: Right Wound Grade/Stage: grade 3 Type of Debridement: Excisional debridement Anesthesia Used: 4% Lidocaine Solution Depth: in the subcutaneous layer Percentage of wound debrided: 100 Instrument Used: #15 blade Tissue Removed: fibrous, devitalized subcutaneous, biofilm, slough Severity: Fat Layer Exposed Amount of bleeding with debridement: Mild Bleeding Controlled with: Pressure Patient tolerated procedure well - Additional Wound Wound debrided: heel Laterality: Right Wound Grade/Stage: grade 1 Type of Debridement: Excisional debridement Anesthesia Used: 4% Lidocaine Solution Depth: in the subcutaneous layer Percentage of wound debrided: 100 Instrument Used: #15 blade Tissue Removed: fibrous, devitalized subcutaneous, biofilm, slough Severity: Fat Layer Exposed Amount of bleeding with debridement: Mild Bleeding Controlled with: Pressure Patient tolerated procedure: Patient tolerated procedure well - Additional Wound Wound debrided: anterior leg (orellana) Laterality: Right Wound Grade/Stage: grade 1 Type of Debridement: Excisional debridement Anesthesia Used: 4% Lidocaine Solution Depth: in the subcutaneous layer Percentage of wound debrided: 100 Instrument Used: #15 blade Tissue Removed: fibrous, devitalized subcutaneous, biofilm, slough Severity: Fat Layer Exposed Amount of bleeding with debridement: Mild Bleeding Controlled with: Pressure Patient tolerated procedure: Patient tolerated procedure well - Additional Wound Wound debrided: medial leg Laterality: Right Wound Grade/Stage: grade 1 Type of Debridement: Excisional debridement Anesthesia Used: 4% Lidocaine Solution Depth: in the subcutaneous layer Percentage of wound debrided: 100 Instrument Used: #15 blade Tissue Removed: fibrous, devitalized subcutaneous, biofilm, slough Severity: Fat Layer Exposed Amount of bleeding with debridement: Mild Bleeding Controlled with: Pressure Patient tolerated procedure: Patient tolerated procedure well - Additional Wound Wound debrided: lateral leg Laterality: Right Wound Grade/Stage: grade 1 Type of Debridement: Excisional debridement Anesthesia Used: 4% Lidocaine Solution Depth: in the subcutaneous layer Percentage of wound debrided: 100 Instrument Used: #15 blade Tissue Removed: fibrous, devitalized subcutaneous, biofilm, slough Severity: Fat Layer Exposed Amount of bleeding with debridement: Mild Bleeding Controlled with: Pressure Patient tolerated procedure: Patient tolerated procedure well - Additional Wound Wound debrided: posterior leg Laterality: Right Wound Grade/Stage: grade 1 Type of Debridement: Excisional debridement Anesthesia Used: 4% Lidocaine Solution Depth: in the subcutaneous layer Percentage of wound debrided: 100 Instrument Used: #15 blade Severity: Fat Layer Exposed Amount of bleeding with debridement: Mild Bleeding Controlled with: Pressure Patient tolerated procedure: Patient tolerated procedure well - Additional Wound Wound debrided: posterior leg Laterality: Left Wound Grade/Stage: grade 3 Type of Debridement: Excisional debridement Anesthesia Used: 4% Lidocaine Solution Depth: in the subcutaneous layer Percentage of wound debrided: 100 Instrument Used: #15 blade Tissue Removed: fibrous, devitalized subcutaneous, biofilm, slough Severity: Fat Layer Exposed Amount of bleeding with debridement: Mild Bleeding Controlled with: Pressure Patient tolerated procedure: Patient tolerated procedure well - Additional Wound Wound debrided: lateral leg Laterality: Left Wound Grade/Stage: grade 1 Type of Debridement: Excisional debridement Anesthesia Used: 4% Lidocaine Solution Depth: in the subcutaneous layer Percentage of wound debrided: 100 Instrument Used: #15 blade Tissue Removed: fibrous, devitalized subcutaneous, biofilm, slough Severity: Fat Layer Exposed Amount of bleeding with debridement: Mild Bleeding Controlled with: Pressure Patient tolerated procedure: Patient tolerated procedure well Assessment/Plan Assessment: Open second and third ray resection secondary to 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 Diabetic neuropathy. Malnutrition suspected. 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 Delayed healing. Gait impairment and fall risk. Other comorbidities, right knee ulcer, tendon exposed (Dr. Gilbert managed), left knee ulcer (Dr. Gilbert managed) Plan: I reviewed and discussed his case with the patient and the patient's . Subcutaneous debridements were performed as noted in the clinical panel. I Recommended changing the dressings daily with [facility] facility staff assistance with santyl to knees (per Dr. Gilbert) and aquacel ag to the leg ulcers, santyl to devitalized tendon zones, and wound vac to the right foot. I also recommend continued wound VAC changes to the right foot that extends to the medial ankle every 3 days. It is noted that this foot site has some bridging epithelialization noted to the center and is now broken into 2 regions; the wound VAC was bridged over the site. He was reassured no worsening status or local section is not notedtoday. The ulcer sites have improved quality with granulation tissue. He has completed a 6 weeks of IV antibiotic of Unasyn. He was reassured no local or systemic signs of illness or apparent today. Infectious disease was on consult during his last [facility] admission. I recommend he avoids laying directly on his wounds to reduce pressure, and I was concerned about his perfusion to his limbs. He had an arterial Doppler scheduled with Dr. Morgan's staff on August 02, 2018 and overall perfusion was confirmed; additional intervention or workup was not recommended. It is also noted that he did have venous Doppler performed with reflux evaluation. He did not have evidence of deep venous thrombosis or venous insufficiency at that time; the vessels were compressible. To continue with nutritional supplementation optimize healing; I recommend Juan. I recommend he sustained from smoking and alcohol activities to optimize healing as well. His workup for vasculitis and underlying autoimmune disorder is also pending. A punch biopsy was sent during his last surgical intervention on June 10 and this demonstrated inflammatory changes without malignancy. He had initial screening labs and so far he has a negative RA titer, HL of the 27, KEVIN, anti-CCP, and rheumatoid factor. Several his antibody screenings were not reportable. I have communicated this workup with his current managing physician at [facility], Dr. Perdomo, to see if additional recommendations or workup is indicated. He is home now. I will further forward this information along to his primary care physician, Dr. Sparks. Hyperbaric oxygen therapy was recommended and it is noted his ejection fraction was most recently 50%. Time was spent last week educating him on this process and he refuses proceeding forward at this time. He understands his goals are infection prevention, pain control, and functional progression. I answered all his questions. Dr. Gilbert continues to manage his bilateral knee ulcers including debridements and traditional wound care plan. I recommend same-day surgery versa jet debridement with application of advanced wound care products including epi cord, amnio fill, and amnio fix product line derived from amniotic cord cells and umbilical cord cells. The benefits, indications, planned procedure, possible benefits risks and anticipated healing time is were discussed. He understands this is a staged procedure and often serial applications are required. He obtained his clearance from Dr. Sparks and an additional Dr. Ponce cardiac evaluation preoperative was recommended. I reviewed the urgency with healing these wounds in a timely manner and encouraged him to reconsider this. He refuses at this time. I answered all of his questions. Additional amputation of the right foot is not planned due to his fairly nonambulatory status. Smoking cessation was discussed in detail again today and compliance is imperative to optimize healing of surgical success. I recommend further follow-up at the wound care center 1 week with me, or call sooner if he has any questions. Compliance at this advanced wound care center was reviewed. He understands additional palliative care programs are an option if he does not wish to proceed with advanced wound care opportunities that has been recommended.
[2018-10-19 09:18] VITALS: BP 126/74; PULSE 87; RESP 16; TEMP 34.7
--- NOTE | 2018-10-19 11:12 | PCM.WC.PN ---
(1) Ulcer of right foot with fat layer exposed Status: Chronic Current Visit: Yes Code(s): L97.512 - Non-pressure chronic ulcer of other part of right foot with fat layer exposed (2) Ulcer of left lower extremity with fat layer exposed Status: Chronic Current Visit: Yes Code(s): L97.922 - Non-pressure chronic ulcer of unspecified part of left lower leg with fat layer exposed (3) Ulcer of right lower extremity with fat layer exposed Status: Chronic Current Visit: Yes Code(s): L97.912 - Non-pressure chronic ulcer of unspecified part of right lower leg with fat layer exposed (4) Delayed wound healing Status: Chronic Current Visit: No Code(s): T14.8XXD - Other injury of unspecified body region, subsequent encounter (5) Vasculitis Status: Chronic Current Visit: No Code(s): I77.6 - Arteritis, unspecified (6) Type 2 diabetes mellitus with diabetic polyneuropathy Status: Chronic Current Visit: Yes Code(s): E11.42 - Type 2 diabetes mellitus with diabetic polyneuropathy (7) Localized edema Status: Chronic Current Visit: Yes Code(s): R60.0 - Localized edema (8) Malnutrition Status: Chronic Current Visit: Yes Code(s): E46 - Unspecified protein-calorie malnutrition Type of Wound Date of Service: 10/19/18 Chief Complaint: right and left Leg ulcers and right foot ulcer History of Wound: Mr. Arguello is a 63-year-old male with multiple comorbidities follows up for delayed healing ulcers to the right foot as well as bilateral legs. It is noted he previously had widespread debridements and fasciotomies performed to bilateral lower extremities secondary to life-threatening and limb threatening infection; this was previously performed at [facility]. He continues to follow with Dr. Gilbert for her knee ulcers, and I saw him today for his other ulcer sites. He has been applying Santyl to both the wounds, Aquacel to leg ulcers, and wound VAC to right foot defect with quality and size reduction improvement. He denies chills, fever or otherwise feeling of unwell. He presents today with his . He refuses advanced wound care product application. He refuses hyperbaric oxygen therapy treatment. He continues to refuse surgical intervention. Progress of Wound: improving bilateral leg ulcers. improving right foot ulcer - Physical Exam Vital Signs Temp Pulse Resp BP 94.4 F L 87 16 126/74 H 10/19/18 09:18 10/19/18 09:18 10/19/18 09:18 10/19/18 09:18 General: Alert, Oriented x3, Cooperative Extremities: No cyanosis, No edema, Capillary Refill Less than 3 Seconds, No Calf Tenderness - Negative Errol and Lobato bilateral, Diminished Peripheral Pulses Skin: Ulcer/ Wound - No purulence, erythema, strength, odor, or infection. There is no longer any exposed muscle or fascia tissue noted bilateral. Continued peripheral epithelialization is noted to all ulcer sites. The peripheral skin is hairless and atrophic. Wound Measurements and Assessment WC - Nurse 1 - General Ulcer Measurement Start: 09/28/18 09:15 Freq: Status: Active Protocol: Activity Type Activity Date Activity User E-Sign Co-Sign Detail Recorded Client Recorded Date Recorded By Document 10/19/18 09:18 [facility] [id number] 10/19/18 09:37 BM 10/19/18 09:18 Wound Center Nurse 1 [Ulcer Assessment] #10 right heel -Combined with other wound No -Current Size (cm) - Length 1 -Current Size (cm) - Width 0.7 -Current Size (cm) - Depth 0.1 -Total Square Cm 0.7 -Photo Taken No -Epithelialization None Present -Tunneling No -Undermining/Tunneling No -Circular Undermining No -Exudate Amt Small (1-33%) -Exudate Type Serosanguineous -Wound Margin Distinct, Outline Attached -Granulation Amt Small (1-33%) -Granulation Quality Opp -Slough/Fibrin Yes -Necrosis Amt Large (67-100%) -Necrotic Tissue Type Adherent Slough -Texture (Lisa-wound Skin Appearance) Scarring -Moisture (Lisa-wound Skin Appearance Maceration ) -Color (Lisa-wound Skin Appearance) Palor -Temperature (Lisa-wound Skin No Abnormality Appearance) (Pt Warm) -Tenderness on Palpation (Lisa-wound No Skin Appearance) -Ulcer Cleansing Wound Cleanser -Foul Odor after Cleansing No -Anesthetic Used 4% Lidocaine Solution 9.L knee -Combined with other wound No -Current Size (cm) - Length 0.1 -Current Size (cm) - Width 0.1 -Current Size (cm) - Depth 0.1 -Total Square Cm 0.01 -Photo Taken No -Epithelialization None Present -Tunneling No -Undermining/Tunneling No -Circular Undermining No -Exudate Amt Small (1-33%) -Exudate Type Serous -Wound Margin Distinct, Outline Attached -Granulation Amt None Present (0 %) -Slough/Fibrin Yes -Necrosis Amt Large (67-100%) -Necrotic Tissue Type Eschar -Texture (Lisa-wound Skin Appearance) Scarring -Moisture (Lisa-wound Skin Appearance Dry/Scaly ) -Color (Lisa-wound Skin Appearance) Assessed -Temperature (Lisa-wound Skin No Abnormality Appearance) (Pt Warm) -Tenderness on Palpation (Lisa-wound No Skin Appearance) -Ulcer Cleansing Wound Cleanser -Foul Odor after Cleansing No -Anesthetic Used 4% Lidocaine Solution #8 r Knee -Combined with other wound No -Current Size (cm) - Length 0.9 -Current Size (cm) - Width 1.2 -Current Size (cm) - Depth 0.3 -Total Square Cm 1.08 -Photo Taken No -Epithelialization None Present -Tunneling No -Undermining/Tunneling Yes -Undermining/Tunneling Starts (O' 12 clock) -Undermining/Tunneling Ends (O'clock) 12 -Maximum Distance (cm) 0.2 -Circular Undermining Yes -Exudate Amt Small (1-33%) -Exudate Type Serous -Wound Margin Distinct, Outline Attached -Granulation Amt Small (1-33%) -Granulation Quality Opp -Slough/Fibrin Yes -Necrosis Amt Large (67-100%) -Necrotic Tissue Type Adherent Slough -Texture (Lisa-wound Skin Appearance) Scarring -Moisture (Lisa-wound Skin Appearance Maceration ) Dry/Scaly -Color (Lisa-wound Skin Appearance) Palor -Temperature (Lisa-wound Skin No Abnormality Appearance) (Pt Warm) -Tenderness on Palpation (Lisa-wound No Skin Appearance) -Ulcer Cleansing Wound Cleanser -Foul Odor after Cleansing No -Anesthetic Used 4% Lidocaine Solution #6 L Post -Combined with other wound No -Current Size (cm) - Length 22.6 -Current Size (cm) - Width 2 -Current Size (cm) - Depth 0.1 -Total Square Cm 45.2 -Photo Taken No -Tunneling No -Undermining/Tunneling No -Circular Undermining No -Exudate Amt Medium (34-66%) -Exudate Type Serosanguineous -Wound Margin Distinct, Outline Attached -Granulation Amt Large (67-100%) -Granulation Quality Red -Slough/Fibrin Yes -Necrosis Amt Small (1-33%) -Necrotic Tissue Type Adherent Slough -Texture (Lisa-wound Skin Appearance) Scarring -Moisture (Lisa-wound Skin Appearance Dry/Scaly ) -Color (Lisa-wound Skin Appearance) Assessed -Temperature (Lisa-wound Skin No Abnormality Appearance) (Pt Warm) -Tenderness on Palpation (Lisa-wound No Skin Appearance) -Ulcer Cleansing Wound Cleanser -Foul Odor after Cleansing No -Anesthetic Used 4% Lidocaine Solution #5 R Lat LE -Combined with other wound No -Current Size (cm) - Length 2 -Current Size (cm) - Width 1.5 -Current Size (cm) - Depth 0.1 -Total Square Cm 3.0 -Photo Taken No -Epithelialization Small 1-33% -Tunneling No -Undermining/Tunneling No -Circular Undermining No -Exudate Amt Small (1-33%) -Exudate Type Serosanguineous -Wound Margin Distinct, Outline Attached -Granulation Amt Large (67-100%) -Granulation Quality Red -Slough/Fibrin Yes -Necrosis Amt Small (1-33%) -Necrotic Tissue Type Adherent Slough -Texture (Lisa-wound Skin Appearance) Scarring -Moisture (Lisa-wound Skin Appearance Dry/Scaly ) -Color (Lisa-wound Skin Appearance) Assessed -Temperature (Lisa-wound Skin No Abnormality Appearance) (Pt Warm) -Tenderness on Palpation (Lisa-wound No Skin Appearance) -Ulcer Cleansing Wound Cleanser -Foul Odor after Cleansing No -Anesthetic Used 4% Lidocaine Solution #4 R post LE -Combined with other wound No -Current Size (cm) - Length 1 -Current Size (cm) - Width 0.7 -Current Size (cm) - Depth 0.1 -Total Square Cm 0.7 -Photo Taken No -Epithelialization None Present -Tunneling No -Undermining/Tunneling No -Circular Undermining No -Exudate Amt Small (1-33%) -Exudate Type Serosanguineous -Wound Margin Distinct, Outline Attached -Granulation Amt None Present (0 %) -Slough/Fibrin Yes -Necrosis Amt Large (67-100%) -Necrotic Tissue Type Adherent Slough -Texture (Lisa-wound Skin Appearance) Scarring -Moisture (Lisa-wound Skin Appearance Dry/Scaly ) -Color (Lisa-wound Skin Appearance) Assessed -Temperature (Lisa-wound Skin No Abnormality Appearance) (Pt Warm) -Tenderness on Palpation (Lisa-wound No Skin Appearance) -Ulcer Cleansing Wound Cleanser -Foul Odor after Cleansing No -Anesthetic Used 4% Lidocaine Solution #3 R Med LE -Combined with other wound No -Current Size (cm) - Length 2.4 -Current Size (cm) - Width 0.7 -Current Size (cm) - Depth 0.6 -Total Square Cm 1.68 -Photo Taken No -Epithelialization None Present -Tunneling No -Undermining/Tunneling No -Circular Undermining No -Exudate Amt Medium (34-66%) -Exudate Type Serosanguineous -Wound Margin Distinct, Outline Attached -Granulation Amt Small (1-33%) -Granulation Quality Red -Slough/Fibrin Yes -Necrosis Amt Large (67-100%) -Necrotic Tissue Type Adherent Slough -Structure Exposed Tendon -Texture (Lisa-wound Skin Appearance) Scarring -Moisture (Lisa-wound Skin Appearance Dry/Scaly ) -Color (Lisa-wound Skin Appearance) Assessed -Temperature (Lisa-wound Skin No Abnormality Appearance) (Pt Warm) -Tenderness on Palpation (Lisa-wound No Skin Appearance) -Ulcer Cleansing Wound Cleanser -Foul Odor after Cleansing No -Anesthetic Used 4% Lidocaine Solution #2 R [place] Cluster -Combined with other wound No -Current Size (cm) - Length 11.8 -Current Size (cm) - Width 4 -Current Size (cm) - Depth 0.1 -Total Square Cm 47.2 -Photo Taken No -Epithelialization Small 1-33% -Tunneling No -Undermining/Tunneling No -Circular Undermining No -Exudate Amt Medium (34-66%) -Exudate Type Serosanguineous -Wound Margin Distinct, Outline Attached -Granulation Amt Large (67-100%) -Granulation Quality Red -Slough/Fibrin Yes -Necrosis Amt Small (1-33%) -Necrotic Tissue Type Adherent Slough -Texture (Lisa-wound Skin Appearance) Scarring -Moisture (Lisa-wound Skin Appearance Dry/Scaly ) -Color (Lisa-wound Skin Appearance) Assessed -Temperature (Lisa-wound Skin No Abnormality Appearance) (Pt Warm) -Tenderness on Palpation (Lisa-wound No Skin Appearance) -Ulcer Cleansing Wound Cleanser -Foul Odor after Cleansing No -Anesthetic Used 4% Lidocaine Solution #1 R 2nd toe amp/Arch/ Med Ankle -Combined with other wound No -Current Size (cm) - Length 26 -Current Size (cm) - Width 2.6 -Current Size (cm) - Depth 1.4 -Total Square Cm 67.6 -Photo Taken No -Epithelialization Small 1-33% -Tunneling No -Undermining/Tunneling No -Circular Undermining No -Exudate Amt Small (1-33%) -Exudate Type Serosanguineous -Wound Margin Distinct, Outline Attached -Granulation Amt Large (67-100%) -Granulation Quality Red -Slough/Fibrin Yes -Necrosis Amt Small (1-33%) -Necrotic Tissue Type Adherent Slough -Texture (Lisa-wound Skin Appearance) Scarring -Moisture (Lisa-wound Skin Appearance Maceration ) -Color (Lisa-wound Skin Appearance) Palor -Temperature (Lisa-wound Skin No Abnormality Appearance) (Pt Warm) -Tenderness on Palpation (Lisa-wound No Skin Appearance) -Ulcer Cleansing Wound Cleanser -Foul Odor after Cleansing No -Anesthetic Used 4% Lidocaine Solution [Edema Assessment] -Lower Limb Edema Present No -Right Calf (cm) 34 -Right Ankle (cm) 21 -Left Calf (cm) 32.5 -Left Ankle (cm) 20.3 WC - Nurse 2 - General Ulcer CM Notes Start: 09/28/18 09:15 Freq: Status: Active Protocol: Activity Type Activity Date Activity User E-Sign Co-Sign Detail Recorded Client Recorded Date Recorded By Document 10/19/18 09:58 TM [id number] 10/19/18 10:15 TM Document 10/19/18 10:28 MW [id number] 10/19/18 10:31 MW 10/19/18 10/19/18 09:58 10:28 Wound Center Nurse 2 [Procedure/Treatment] #10 right heel -Time 10:10 -Correct Patient Yes -Correct Side, Site, Position Yes -Correct Procedure Yes -Procedure Performed Yes -Type of Procedure Debridement -Clinical Debridement Subcutaneous -Post Debridement Size (cm) - Length 1.1 -Post Debridement Size (cm) - Width 0.8 -Post Debridement Size (cm) - Depth 0.1 -Total Square Cm 0.88 -Wound/Ulcer Outcome Not Healed -Ulcer Cleansing Rinsed/ Irrigated with Saline -Foul Odor after Cleansing No -Bioengineered Tissue No -Topical Lidocaine (%) 4 -Bleeding Controlled with Pressure -Treatment Response Procedure Tolerated Well 9.L knee -Time 10:29 -Correct Patient Yes -Correct Side, Site, Position Yes -Correct Procedure Yes -Procedure Performed Yes -Type of Procedure Debridement -Clinical Debridement Selective -Post Debridement Size (cm) - Length 0.1 -Post Debridement Size (cm) - Width 0.1 -Post Debridement Size (cm) - Depth 0.1 -Total Square Cm 0.01 -Wound/Ulcer Outcome Not Healed -Ulcer Cleansing Rinsed/ Irrigated with Saline -Foul Odor after Cleansing No -Bioengineered Tissue No -Bleeding Controlled with Pressure -Treatment Response Procedure Tolerated Well #8 r Knee -Time 10:29 -Correct Patient Yes -Correct Side, Site, Position Yes -Correct Procedure Yes -Procedure Performed Yes -Type of Procedure Debridement -Clinical Debridement Subcutaneous -Post Debridement Size (cm) - Length 1.0 -Post Debridement Size (cm) - Width 1.0 -Post Debridement Size (cm) - Depth 0.2 -Total Square Cm 1.00 -Wound/Ulcer Outcome Not Healed -Ulcer Cleansing Rinsed/ Irrigated with Saline -Foul Odor after Cleansing No -Bioengineered Tissue No -Bleeding Controlled with Pressure -Treatment Response Procedure Tolerated Well #6 L Post -Time 10:11 -Correct Patient Yes -Correct Side, Site, Position Yes -Correct Procedure Yes -Procedure Performed Yes -Type of Procedure Debridement -Clinical Debridement Subcutaneous -Post Debridement Size (cm) - Length 22.7 -Post Debridement Size (cm) - Width 2.1 -Post Debridement Size (cm) - Depth 0.1 -Total Square Cm 47.67 -Wound/Ulcer Outcome Not Healed -Ulcer Cleansing Rinsed/ Irrigated with Saline -Foul Odor after Cleansing No -Bioengineered Tissue No -Topical Lidocaine (%) 4 -Bleeding Controlled with Pressure -Treatment Response Procedure Tolerated Well #5 R Lat LE -Time 10:11 -Correct Patient Yes -Correct Side, Site, Position Yes -Correct Procedure Yes -Procedure Performed Yes -Type of Procedure Debridement -Clinical Debridement Subcutaneous -Post Debridement Size (cm) - Length 2.1 -Post Debridement Size (cm) - Width 1.6 -Post Debridement Size (cm) - Depth 0.1 -Total Square Cm 3.36 -Wound/Ulcer Outcome Not Healed -Ulcer Cleansing Rinsed/ Irrigated with Saline -Foul Odor after Cleansing No -Bioengineered Tissue No -Topical Lidocaine (%) 4 -Bleeding Controlled with Pressure -Treatment Response Procedure Tolerated Well #4 R post LE -Time 10:12 -Correct Patient Yes -Correct Side, Site, Position Yes -Correct Procedure Yes -Procedure Performed Yes -Type of Procedure Debridement -Clinical Debridement Subcutaneous -Post Debridement Size (cm) - Length 1.1 -Post Debridement Size (cm) - Width 0.8 -Post Debridement Size (cm) - Depth 0.1 -Total Square Cm 0.88 -Wound/Ulcer Outcome Not Healed -Ulcer Cleansing Rinsed/ Irrigated with Saline -Foul Odor after Cleansing No -Bioengineered Tissue No -Topical Lidocaine (%) 4 -Bleeding Controlled with Pressure -Treatment Response Procedure Tolerated Well #3 R Med LE -Time 10:12 -Correct Patient Yes -Correct Side, Site, Position Yes -Correct Procedure Yes -Procedure Performed Yes -Type of Procedure Debridement -Clinical Debridement Subcutaneous -Post Debridement Size (cm) - Length 2.5 -Post Debridement Size (cm) - Width 0.8 -Post Debridement Size (cm) - Depth 0.6 -Total Square Cm 2.00 -Wound/Ulcer Outcome Not Healed -Ulcer Cleansing Rinsed/ Irrigated with Saline -Foul Odor after Cleansing No -Bioengineered Tissue No -Topical Lidocaine (%) 4 -Bleeding Controlled with Pressure -Treatment Response Procedure Tolerated Well #2 R [place]rellana Cluster -Time 10:12 -Correct Patient Yes -Correct Side, Site, Position Yes -Correct Procedure Yes -Procedure Performed Yes -Type of Procedure Debridement -Clinical Debridement Subcutaneous -Post Debridement Size (cm) - Length 11.9 -Post Debridement Size (cm) - Width 4.1 -Post Debridement Size (cm) - Depth 0.1 -Total Square Cm 48.79 -Wound/Ulcer Outcome Not Healed -Ulcer Cleansing Rinsed/ Irrigated with Saline -Foul Odor after Cleansing No -Bioengineered Tissue No -Topical Lidocaine (%) 4 -Bleeding Controlled with Pressure -Treatment Response Procedure Tolerated Well #1 R 2nd toe amp/Arch/ Med Ankle -Time 10:13 -Correct Patient Yes -Correct Side, Site, Position Yes -Correct Procedure Yes -Procedure Performed Yes -Type of Procedure Debridement -Clinical Debridement Subcutaneous -Post Debridement Size (cm) - Length 26.1 -Post Debridement Size (cm) - Width 2.7 -Post Debridement Size (cm) - Depth 1.4 -Total Square Cm 70.47 -Wound/Ulcer Outcome Not Healed -Ulcer Cleansing Rinsed/ Irrigated with Saline -Bioengineered Tissue No -Topical Lidocaine (%) 4 -Bleeding Controlled with Pressure -Treatment Response Procedure Tolerated Well [See Physician Procedure note for Specifics] Pain Scale: 0-10 Numeric [Pain] -Is Patient Pain Free? Yes Musculoskeletal: No Tenderness to Palpation of Joints or Extremities, Muscle Wasting, - - Lack of muscular strength of the lower extremities and inability to weight-bear noted Neurological: - - Lack of epicritic sensation consistent with neuropathy noted bilateral lower extremities Psych/Mental Status: Normal Affect, Appropriate Debridement Note Post-Debridement Measurements/Treatment WC - Nurse 2 - General Ulcer CM Notes Start: 09/28/18 09:15 Freq: Status: Active Protocol: Activity Type Activity Date Activity User E-Sign Co-Sign Detail Recorded Client Recorded Date Recorded By Document 09/28/18 10:06 TM [id number] 09/28/18 10:15 TM Document 09/28/18 10:41 MW [id number] 09/28/18 10:51 MW Document 10/05/18 10:10 [id number] 10/05/18 10:11 CS Document 10/05/18 15:32 TM [id number] 10/05/18 15:36 TM Document 10/12/18 09:39 TM [id number] 10/12/18 09:52 TM Document 10/12/18 10:02 MW [id number] 10/12/18 10:07 MW Document 10/19/18 09:58 TM [id number] 10/19/18 10:15 TM Document 10/19/18 10:28 MW [id number] 10/19/18 10:31 MW 09/28/18 09/28/18 10/05/18 10:06 10:41 10:10 Wound Center Nurse 2 #10 right heel -Time 10:13 -Correct Patient Yes -Correct Side, Site, Position Yes -Correct Procedure Yes -Procedure Performed Yes -Type of Procedure Debridement -Clinical Debridement Subcutaneous -Post Debridement Size (cm) - Length 1.4 -Post Debridement Size (cm) - Width 1.0 -Post Debridement Size (cm) - Depth 0.1 -Total Square Cm 1.40 -Wound/Ulcer Outcome Not Healed -Ulcer Cleansing Rinsed/ Irrigated with Saline -Foul Odor after Cleansing No -Bioengineered Tissue No -Topical Lidocaine (%) 4 -Bleeding Controlled with Pressure -Treatment Response Procedure Tolerated Well 9.L knee -Time 10:42 10:10 -Correct Patient Yes Yes -Correct Side, Site, Position Yes Yes -Correct Procedure Yes Yes -Procedure Performed Yes Yes -Type of Procedure Debridement Debridement -Clinical Debridement Subcutaneous Subcutaneous -Post Debridement Size (cm) - Length 0.2 0.4 -Post Debridement Size (cm) - Width 0.6 0.5 -Post Debridement Size (cm) - Depth 0.1 0.2 -Total Square Cm 0.12 0.20 -Wound/Ulcer Outcome Not Healed Not Healed -Ulcer Cleansing Rinsed/ Rinsed/ Irrigated with Irrigated with Saline Saline -Foul Odor after Cleansing No No -Bioengineered Tissue No No -Bleeding Controlled with Pressure NA -Treatment Response Procedure Procedure Tolerated Well Tolerated Well #8 r Knee -Time 10:42 10:10 -Correct Patient Yes Yes -Correct Side, Site, Position Yes Yes -Correct Procedure Yes Yes -Procedure Performed Yes Yes -Type of Procedure Debridement Debridement -Clinical Debridement Subcutaneous Subcutaneous -Post Debridement Size (cm) - Length 1.2 1 -Post Debridement Size (cm) - Width 1.7 1.2 -Post Debridement Size (cm) - Depth 0.3 0.2 -Total Square Cm 2.04 1.2 -Wound/Ulcer Outcome Not Healed Not Healed -Ulcer Cleansing Rinsed/ Not Cleansed Irrigated with Saline -Foul Odor after Cleansing No No -Bioengineered Tissue No No -Bleeding Controlled with Pressure NA -Treatment Response Procedure Procedure Tolerated Well Tolerated Well #6 L Post -Time 10:09 -Correct Patient Yes -Correct Side, Site, Position Yes -Correct Procedure Yes -Procedure Performed Yes -Type of Procedure Debridement -Clinical Debridement Muscle -Post Debridement Size (cm) - Length 21.1 -Post Debridement Size (cm) - Width 2.1 -Post Debridement Size (cm) - Depth 0.5 -Total Square Cm 44.31 -Wound/Ulcer Outcome Not Healed -Ulcer Cleansing Rinsed/ Irrigated with Saline -Foul Odor after Cleansing No -Bioengineered Tissue No -Topical Lidocaine (%) 4 -Bleeding Controlled with Pressure -Treatment Response Procedure Tolerated Well #5 R Lat LE -Time 10:09 -Correct Patient Yes -Correct Side, Site, Position Yes -Correct Procedure Yes -Procedure Performed Yes -Type of Procedure Debridement -Clinical Debridement Subcutaneous -Post Debridement Size (cm) - Length 3.2 -Post Debridement Size (cm) - Width 1.8 -Post Debridement Size (cm) - Depth 0.1 -Total Square Cm 5.76 -Wound/Ulcer Outcome Not Healed -Ulcer Cleansing Rinsed/ Irrigated with Saline -Foul Odor after Cleansing No -Bioengineered Tissue No -Topical Lidocaine (%) 4 -Bleeding Controlled with Pressure -Treatment Response Procedure Tolerated Well #4 R post LE -Time 10:10 -Correct Patient Yes -Correct Side, Site, Position Yes -Correct Procedure Yes -Procedure Performed Yes -Type of Procedure Debridement -Clinical Debridement Subcutaneous -Post Debridement Size (cm) - Length 1.3 -Post Debridement Size (cm) - Width 1.1 -Post Debridement Size (cm) - Depth 0.1 -Total Square Cm 1.43 -Wound/Ulcer Outcome Not Healed -Ulcer Cleansing Rinsed/ Irrigated with Saline -Foul Odor after Cleansing No -Bioengineered Tissue No -Topical Lidocaine (%) 4 -Bleeding Controlled with Pressure -Treatment Response Procedure Tolerated Well #3 R Med LE -Time 10:10 -Correct Patient Yes -Correct Side, Site, Position Yes -Correct Procedure Yes -Procedure Performed Yes -Type of Procedure Debridement -Clinical Debridement Subcutaneous -Post Debridement Size (cm) - Length 3.6 -Post Debridement Size (cm) - Width 1.6 -Post Debridement Size (cm) - Depth 0.3 -Total Square Cm 5.76 -Wound/Ulcer Outcome Not Healed -Ulcer Cleansing Rinsed/ Irrigated with Saline -Foul Odor after Cleansing No -Bioengineered Tissue No -Topical Lidocaine (%) 4 -Bleeding Controlled with Pressure -Treatment Response Procedure Tolerated Well #2 R [place]rell[place] Cluster -Time 10:11 -Correct Patient Yes -Correct Side, Site, Position Yes -Correct Procedure Yes -Procedure Performed Yes -Type of Procedure Debridement -Clinical Debridement Subcutaneous -Post Debridement Size (cm) - Length 15.6 -Post Debridement Size (cm) - Width 3.9 -Post Debridement Size (cm) - Depth 0.1 -Total Square Cm 60.84 -Wound/Ulcer Outcome Not Healed -Ulcer Cleansing Rinsed/ Irrigated with Saline -Foul Odor after Cleansing No -Bioengineered Tissue No -Topical Lidocaine (%) 4 -Bleeding Controlled with Pressure -Treatment Response Procedure Tolerated Well #1 R 2nd toe amp/Arch/ Med Ankle -Time 10:11 -Correct Patient Yes -Correct Side, Site, Position Yes -Correct Procedure Yes -Procedure Performed Yes -Type of Procedure Debridement -Clinical Debridement Subcutaneous -Post Debridement Size (cm) - Length 29.1 -Post Debridement Size (cm) - Width 2.9 -Post Debridement Size (cm) - Depth 1.3 -Total Square Cm 84.39 -Wound/Ulcer Outcome Not Healed -Ulcer Cleansing Rinsed/ Irrigated with Saline -Foul Odor after Cleansing No -Bioengineered Tissue No -Topical Lidocaine (%) 4 -Bleeding Controlled with Pressure -Treatment Response Procedure Tolerated Well Pain Scale: 0-10 Numeric Is Patient Pain Free? Yes 18 10/12/18 10/12/18 15:32 09:39 10:02 Wound Center Nurse 2 #10 right heel -Time 15:32 09:49 -Correct Patient Yes Yes -Correct Side, Site, Position Yes Yes -Correct Procedure Yes Yes -Procedure Performed Yes Yes -Type of Procedure Debridement Debridement -Clinical Debridement Subcutaneous Subcutaneous -Post Debridement Size (cm) - Length 0.6 1.0 -Post Debridement Size (cm) - Width 1.0 0.8 -Post Debridement Size (cm) - Depth 0.2 0.2 -Total Square Cm 0.60 0.80 -Wound/Ulcer Outcome Not Healed Not Healed -Ulcer Cleansing Rinsed/ Rinsed/ Irrigated with Irrigated with Saline Saline -Foul Odor after Cleansing No No -Bioengineered Tissue No No -Topical Lidocaine (%) 4 4 -Bleeding Controlled with Pressure Pressure -Treatment Response Procedure Procedure Tolerated Well Tolerated Well 9.L knee -Time 10:03 -Correct Patient Yes -Correct Side, Site, Position Yes -Correct Procedure Yes -Procedure Performed Yes -Type of Procedure Debridement -Clinical Debridement Subcutaneous -Post Debridement Size (cm) - Length 0.2 -Post Debridement Size (cm) - Width 0.4 -Post Debridement Size (cm) - Depth 0.2 -Total Square Cm 0.08 -Wound/Ulcer Outcome Not Healed -Ulcer Cleansing Rinsed/ Irrigated with Saline -Foul Odor after Cleansing No -Bioengineered Tissue No -Bleeding Controlled with Pressure -Treatment Response Procedure Tolerated Well #8 r Knee -Time 10:03 -Correct Patient Yes -Correct Side, Site, Position Yes -Correct Procedure Yes -Procedure Performed Yes -Type of Procedure Debridement -Clinical Debridement Subcutaneous -Post Debridement Size (cm) - Length 1.1 -Post Debridement Size (cm) - Width 1.1 -Post Debridement Size (cm) - Depth 0.3 -Total Square Cm 1.21 -Wound/Ulcer Outcome Not Healed -Ulcer Cleansing Rinsed/ Irrigated with Saline -Foul Odor after Cleansing No -Bioengineered Tissue No -Bleeding Controlled with Pressure -Treatment Response Procedure Tolerated Well #6 L Post -Time 15:32 09:49 -Correct Patient Yes Yes -Correct Side, Site, Position Yes Yes -Correct Procedure Yes Yes -Procedure Performed Yes Yes -Type of Procedure Debridement Debridement -Clinical Debridement Subcutaneous Subcutaneous -Post Debridement Size (cm) - Length 14.3 21.6 -Post Debridement Size (cm) - Width 2.7 2.6 -Post Debridement Size (cm) - Depth 0.2 0.2 -Total Square Cm 38.61 56.16 -Wound/Ulcer Outcome Not Healed Not Healed -Ulcer Cleansing Rinsed/ Rinsed/ Irrigated with Irrigated with Saline Saline -Foul Odor after Cleansing No No -Bioengineered Tissue No No -Topical Lidocaine (%) 4 4 -Bleeding Controlled with Pressure Pressure -Treatment Response Procedure Procedure Tolerated Well Tolerated Well #5 R Lat LE -Time 15:33 09:50 -Correct Patient Yes Yes -Correct Side, Site, Position Yes Yes -Correct Procedure Yes Yes -Procedure Performed Yes Yes -Type of Procedure Debridement Debridement -Clinical Debridement Subcutaneous Subcutaneous -Post Debridement Size (cm) - Length 2.6 2.5 -Post Debridement Size (cm) - Width 2.1 2.0 -Post Debridement Size (cm) - Depth 0.2 0.2 -Total Square Cm 5.46 5.00 -Wound/Ulcer Outcome Not Healed Not Healed -Ulcer Cleansing Rinsed/ Rinsed/ Irrigated with Irrigated with Saline Saline -Foul Odor after Cleansing No No -Bioengineered Tissue No No -Topical Lidocaine (%) 4 -Bleeding Controlled with Pressure Pressure -Treatment Response Procedure Procedure Tolerated Well Tolerated Well #4 R post LE -Time 15:33 09:50 -Correct Patient Yes Yes -Correct Side, Site, Position Yes Yes -Correct Procedure Yes Yes -Procedure Performed Yes Yes -Type of Procedure Debridement Debridement -Clinical Debridement Subcutaneous Subcutaneous -Post Debridement Size (cm) - Length 3.3 1.1 -Post Debridement Size (cm) - Width 1.1 1.0 -Post Debridement Size (cm) - Depth 0.3 0.2 -Total Square Cm 3.63 1.10 -Wound/Ulcer Outcome Not Healed Not Healed -Ulcer Cleansing Rinsed/ Rinsed/ Irrigated with Irrigated with Saline Saline -Foul Odor after Cleansing No No -Bioengineered Tissue No No -Topical Lidocaine (%) 4 4 -Bleeding Controlled with Pressure Pressure -Treatment Response Procedure Procedure Tolerated Well Tolerated Well #3 R Med LE -Time 15:34 09:51 -Correct Patient Yes Yes -Correct Side, Site, Position Yes Yes -Correct Procedure Yes Yes -Procedure Performed Yes Yes -Type of Procedure Debridement Debridement -Clinical Debridement Subcutaneous Subcutaneous -Post Debridement Size (cm) - Length 1.2 2.9 -Post Debridement Size (cm) - Width 1.0 1.1 -Post Debridement Size (cm) - Depth 0.2 0.3 -Total Square Cm 1.20 3.19 -Wound/Ulcer Outcome Not Healed Not Healed -Ulcer Cleansing Rinsed/ Rinsed/ Irrigated with Irrigated with Saline Saline -Foul Odor after Cleansing No No -Bioengineered Tissue No No -Topical Lidocaine (%) 4 4 -Bleeding Controlled with Pressure Pressure -Treatment Response Procedure Procedure Tolerated Well Tolerated Well #2 R [place] Cluster -Time 15:34 09:51 -Correct Patient Yes Yes -Correct Side, Site, Position Yes Yes -Correct Procedure Yes Yes -Procedure Performed Yes Yes -Type of Procedure Debridement Debridement -Clinical Debridement Subcutaneous Subcutaneous -Post Debridement Size (cm) - Length 22.1 22.0 -Post Debridement Size (cm) - Width 3.8 3.6 -Post Debridement Size (cm) - Depth 0.2 0.1 -Total Square Cm 83.98 79.20 -Wound/Ulcer Outcome Not Healed Not Healed -Ulcer Cleansing Rinsed/ Rinsed/ Irrigated with Irrigated with Saline Saline -Foul Odor after Cleansing No No -Bioengineered Tissue No No -Topical Lidocaine (%) 4 4 -Bleeding Controlled with Pressure Pressure -Treatment Response Procedure Procedure Tolerated Well Tolerated Well #1 R 2nd toe amp/Arch/ Med Ankle -Time 15:35 09:51 -Correct Patient Yes Yes -Correct Side, Site, Position Yes Yes -Correct Procedure Yes Yes -Procedure Performed Yes Yes -Type of Procedure Debridement Debridement -Clinical Debridement Subcutaneous Subcutaneous -Post Debridement Size (cm) - Length 29.2 29.6 -Post Debridement Size (cm) - Width 3.0 3.4 -Post Debridement Size (cm) - Depth 1.3 1.4 -Total Square Cm 87.60 100.64 -Wound/Ulcer Outcome Not Healed Not Healed -Ulcer Cleansing Rinsed/ Rinsed/ Irrigated with Irrigated with Saline Saline -Foul Odor after Cleansing No No -Bioengineered Tissue No No -Topical Lidocaine (%) 4 4 -Bleeding Controlled with Pressure Pressure -Treatment Response Procedure Procedure Tolerated Well Tolerated Well Pain Scale: 0-10 Numeric Is Patient Pain Free? Yes Yes 10/19/18 10/19/18 09:58 10:28 Wound Center Nurse 2 #10 right heel -Time 10:10 -Correct Patient Yes -Correct Side, Site, Position Yes -Correct Procedure Yes -Procedure Performed Yes -Type of Procedure Debridement -Clinical Debridement Subcutaneous -Post Debridement Size (cm) - Length 1.1 -Post Debridement Size (cm) - Width 0.8 -Post Debridement Size (cm) - Depth 0.1 -Total Square Cm 0.88 -Wound/Ulcer Outcome Not Healed -Ulcer Cleansing Rinsed/ Irrigated with Saline -Foul Odor after Cleansing No -Bioengineered Tissue No -Topical Lidocaine (%) 4 -Bleeding Controlled with Pressure -Treatment Response Procedure Tolerated Well 9.L knee -Time 10:29 -Correct Patient Yes -Correct Side, Site, Position Yes -Correct Procedure Yes -Procedure Performed Yes -Type of Procedure Debridement -Clinical Debridement Selective -Post Debridement Size (cm) - Length 0.1 -Post Debridement Size (cm) - Width 0.1 -Post Debridement Size (cm) - Depth 0.1 -Total Square Cm 0.01 -Wound/Ulcer Outcome Not Healed -Ulcer Cleansing Rinsed/ Irrigated with Saline -Foul Odor after Cleansing No -Bioengineered Tissue No -Bleeding Controlled with Pressure -Treatment Response Procedure Tolerated Well #8 r Knee -Time 10:29 -Correct Patient Yes -Correct Side, Site, Position Yes -Correct Procedure Yes -Procedure Performed Yes -Type of Procedure Debridement -Clinical Debridement Subcutaneous -Post Debridement Size (cm) - Length 1.0 -Post Debridement Size (cm) - Width 1.0 -Post Debridement Size (cm) - Depth 0.2 -Total Square Cm 1.00 -Wound/Ulcer Outcome Not Healed -Ulcer Cleansing Rinsed/ Irrigated with Saline -Foul Odor after Cleansing No -Bioengineered Tissue No -Bleeding Controlled with Pressure -Treatment Response Procedure Tolerated Well #6 L Post -Time 10:11 -Correct Patient Yes -Correct Side, Site, Position Yes -Correct Procedure Yes -Procedure Performed Yes -Type of Procedure Debridement -Clinical Debridement Subcutaneous -Post Debridement Size (cm) - Length 22.7 -Post Debridement Size (cm) - Width 2.1 -Post Debridement Size (cm) - Depth 0.1 -Total Square Cm 47.67 -Wound/Ulcer Outcome Not Healed -Ulcer Cleansing Rinsed/ Irrigated with Saline -Foul Odor after Cleansing No -Bioengineered Tissue No -Topical Lidocaine (%) 4 -Bleeding Controlled with Pressure -Treatment Response Procedure Tolerated Well #5 R Lat LE -Time 10:11 -Correct Patient Yes -Correct Side, Site, Position Yes -Correct Procedure Yes -Procedure Performed Yes -Type of Procedure Debridement -Clinical Debridement Subcutaneous -Post Debridement Size (cm) - Length 2.1 -Post Debridement Size (cm) - Width 1.6 -Post Debridement Size (cm) - Depth 0.1 -Total Square Cm 3.36 -Wound/Ulcer Outcome Not Healed -Ulcer Cleansing Rinsed/ Irrigated with Saline -Foul Odor after Cleansing No -Bioengineered Tissue No -Topical Lidocaine (%) 4 -Bleeding Controlled with Pressure -Treatment Response Procedure Tolerated Well #4 R post LE -Time 10:12 -Correct Patient Yes -Correct Side, Site, Position Yes -Correct Procedure Yes -Procedure Performed Yes -Type of Procedure Debridement -Clinical Debridement Subcutaneous -Post Debridement Size (cm) - Length 1.1 -Post Debridement Size (cm) - Width 0.8 -Post Debridement Size (cm) - Depth 0.1 -Total Square Cm 0.88 -Wound/Ulcer Outcome Not Healed -Ulcer Cleansing Rinsed/ Irrigated with Saline -Foul Odor after Cleansing No -Bioengineered Tissue No -Topical Lidocaine (%) 4 -Bleeding Controlled with Pressure -Treatment Response Procedure Tolerated Well #3 R Med LE -Time 10:12 -Correct Patient Yes -Correct Side, Site, Position Yes -Correct Procedure Yes -Procedure Performed Yes -Type of Procedure Debridement -Clinical Debridement Subcutaneous -Post Debridement Size (cm) - Length 2.5 -Post Debridement Size (cm) - Width 0.8 -Post Debridement Size (cm) - Depth 0.6 -Total Square Cm 2.00 -Wound/Ulcer Outcome Not Healed -Ulcer Cleansing Rinsed/ Irrigated with Saline -Foul Odor after Cleansing No -Bioengineered Tissue No -Topical Lidocaine (%) 4 -Bleeding Controlled with Pressure -Treatment Response Procedure Tolerated Well #2 R [place] Cluster -Time 10:12 -Correct Patient Yes -Correct Side, Site, Position Yes -Correct Procedure Yes -Procedure Performed Yes -Type of Procedure Debridement -Clinical Debridement Subcutaneous -Post Debridement Size (cm) - Length 11.9 -Post Debridement Size (cm) - Width 4.1 -Post Debridement Size (cm) - Depth 0.1 -Total Square Cm 48.79 -Wound/Ulcer Outcome Not Healed -Ulcer Cleansing Rinsed/ Irrigated with Saline -Foul Odor after Cleansing No -Bioengineered Tissue No -Topical Lidocaine (%) 4 -Bleeding Controlled with Pressure -Treatment Response Procedure Tolerated Well #1 R 2nd toe amp/Arch/ Med Ankle -Time 10:13 -Correct Patient Yes -Correct Side, Site, Position Yes -Correct Procedure Yes -Procedure Performed Yes -Type of Procedure Debridement -Clinical Debridement Subcutaneous -Post Debridement Size (cm) - Length 26.1 -Post Debridement Size (cm) - Width 2.7 -Post Debridement Size (cm) - Depth 1.4 -Total Square Cm 70.47 -Wound/Ulcer Outcome Not Healed -Ulcer Cleansing Rinsed/ Irrigated with Saline -Foul Odor after Cleansing -Bioengineered Tissue No -Topical Lidocaine (%) 4 -Bleeding Controlled with Pressure -Treatment Response Procedure Tolerated Well Pain Scale: 0-10 Numeric Is Patient Pain Free? Yes Wound debrided: posterior leg Laterality: Left Wound Grade/Stage: grade 3 Type of Debridement: Excisional debridement Anesthesia Used: 5% Lidocaine Gel Depth: in the subcutaneous layer Percentage of wound debrided: 100 Instrument Used: #15 blade Tissue Removed: fibrous, devitalized subcutaneous, biofilm, slough Severity: Fat Layer Exposed Amount of bleeding with debridement: Mild Bleeding Controlled with: Pressure Patient tolerated procedure well - Additional Wound Wound debrided: anterior leg (orellana) Laterality: Right Wound Grade/Stage: grade 1 Type of Debridement: Excisional debridement Anesthesia Used: 5% Lidocaine Gel Depth: in the subcutaneous layer Percentage of wound debrided: 100 Instrument Used: #15 blade Tissue Removed: fibrous, devitalized subcutaneous, biofilm, slough Severity: Fat Layer Exposed Amount of bleeding with debridement: Mild Bleeding Controlled with: Pressure Patient tolerated procedure: Patient tolerated procedure well - Additional Wound Wound debrided: medial leg Laterality: Right Wound Grade/Stage: grade 1 Type of Debridement: Excisional debridement Anesthesia Used: 5% Lidocaine Gel Depth: in the subcutaneous layer Percentage of wound debrided: 100 Instrument Used: #15 blade Tissue Removed: fibrous, devitalized subcutaneous, biofilm, slough Severity: Fat Layer Exposed Amount of bleeding with debridement: Mild Bleeding Controlled with: Pressure Patient tolerated procedure: Patient tolerated procedure well - Additional Wound Wound debrided: lateral leg Laterality: Right Wound Grade/Stage: grade 1 Type of Debridement: Excisional debridement Anesthesia Used: 5% Lidocaine Gel Depth: in the subcutaneous layer Percentage of wound debrided: 100 Instrument Used: #15 blade Tissue Removed: fibrous, devitalized subcutaneous, biofilm, slough Severity: Fat Layer Exposed Amount of bleeding with debridement: Mild Bleeding Controlled with: Pressure Patient tolerated procedure: Patient tolerated procedure well - Additional Wound Wound debrided: foot Laterality: Right Wound Grade/Stage: grade 3 Type of Debridement: Excisional debridement Anesthesia Used: 5% Lidocaine Gel Depth: in the subcutaneous layer Percentage of wound debrided: 100 Instrument Used: #15 blade Tissue Removed: fibrous, devitalized subcutaneous, biofilm, slough Severity: Fat Layer Exposed Amount of bleeding with debridement: Mild Bleeding Controlled with: Pressure Patient tolerated procedure: Patient tolerated procedure well - Additional Wound Wound debrided: posterior leg Laterality: Right Wound Grade/Stage: grade 1 Type of Debridement: Excisional debridement Anesthesia Used: 5% Lidocaine Gel Depth: in the subcutaneous layer Percentage of wound debrided: 100 Instrument Used: #15 blade Tissue Removed: fibrous, devitalized subcutaneous, biofilm, slough Severity: Fat Layer Exposed Amount of bleeding with debridement: Mild Bleeding Controlled with: Pressure Patient tolerated procedure: Patient tolerated procedure well - Additional Wound Wound debrided: heel Laterality: Right Wound Grade/Stage: grade 1 Type of Debridement: Excisional debridement Anesthesia Used: 5% Lidocaine Gel Percentage of wound debrided: 100 Instrument Used: #15 blade Tissue Removed: fibrous, devitalized subcutaneous, biofilm, slough Severity: Fat Layer Exposed Amount of bleeding with debridement: Mild Bleeding Controlled with: Pressure Patient tolerated procedure: Patient tolerated procedure well Assessment/Plan Active Problems (Last Updated 09/28/18 @ 12:41 by Geraldine Steele) Ulcer of right foot with fat layer exposed (Chronic) Ulcer of right lower extremity with fat layer exposed (Chronic) Ulcer of left lower extremity with fat layer exposed (Chronic) Type 2 diabetes mellitus with diabetic polyneuropathy (Chronic) Localized edema (Chronic) Malnutrition (Chronic) Assessment: Open second and third ray resection secondary to 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 Diabetic neuropathy. Malnutrition suspected. 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 Delayed healing. Gait impairment and fall risk. Other comorbidities, right knee ulcer, tendon exposed (Dr. Gilbert managed), left knee ulcer (Dr. Gilbert managed) Plan: I reviewed and discussed his case with the patient and the patient's . Subcutaneous debridements were performed as noted in the clinical panel. I Recommended changing the dressings daily with nursing home facility staff assistance with santyl to knees (per Dr. Gilbert) and aquacel ag to the leg ulcers, santyl to devitalized tendon zones, and wound vac to the right foot. I also recommend continued wound VAC changes to the right foot that extends to the medial ankle every 3 days. It is noted that this foot site has some bridging epithelialization noted to the center and is now broken into 2 regions; the wound VAC was bridged over the site. No infection is noted to any of the aformentioned lower extremity debridement sites. The ulcer sites have improved quality with granulation tissue. He has completed a 6 weeks of IV antibiotic of Unasyn. I recommend he avoids laying directly on his wounds to reduce pressure, and I was concerned about his perfusion to his limbs. He had an arterial Doppler scheduled with Dr. Morgan's staff on August 02, 2018 and overall perfusion was confirmed; additional intervention or workup was not recommended. It is also noted that he did have venous Doppler performed with reflux evaluation. He did not have evidence of deep venous thrombosis or venous insufficiency at that time; the vessels were compressible. To continue with nutritional supplementation optimize healing; I recommend Juan. I recommend he sustained from smoking and alcohol activities to optimize healing as well. His workup for vasculitis and underlying autoimmune disorder is also pending. A punch biopsy was sent during his last surgical intervention on June 10 and this demonstrated inflammatory changes without malignancy. He had initial screening labs and so far he has a negative RA titer, HL of the 27, KEVIN, anti-CCP, and rheumatoid factor. Several his antibody screenings were not reportable. I have communicated this workup with his current managing physician at [facility], Dr. Perdomo, to see if additional recommendations or workup is indicated. He is home now. I will further forward this information along to his primary care physician, Dr. Sparks. Hyperbaric oxygen therapy was recommended and it is noted his ejection fraction was most recently 50%. He refuses at this time. Dr. Gilbert continues to manage his bilateral knee ulcers including debridements and traditional wound care plan. I recommend same-day surgery versa jet debridement with application of advanced wound care products including epi cord, amnio fill, and amnio fix product line derived from amniotic cord cells and umbilical cord cells. The benefits, indications, planned procedure, possible benefits risks and anticipated healing time is were discussed. He understands this is a staged procedure and often serial applications are required. He obtained his clearance from Dr. Sparks and an additional Dr. Ponce cardiac evaluation preoperative was recommended. I reviewed the urgency with healing these wounds in a timely manner and encouraged him to reconsider this. He refuses at this time. I answered all of his questions. Additional amputation of the right foot is not planned due to his fairly nonambulatory status. Smoking cessation was discussed in detail again today and compliance is imperative to optimize healing of surgical success. I recommend further follow-up at the wound care center 1 week with me, or call sooner if he has any questions. Compliance at this advanced wound care center was reviewed. He understands additional palliative care programs are an option if he does not wish to proceed with advanced wound care opportunities that has been recommended.
--- NOTE | 2018-10-19 11:16 | PN.PCM_ITS ---
(1) Ulcer of right foot with fat layer exposed Status: Chronic Current Visit: Yes Code(s): L97.512 - Non-pressure chronic ulcer of other part of right foot with fat layer exposed (2) Ulcer of left lower extremity with fat layer exposed Status: Chronic Current Visit: Yes Code(s): L97.922 - Non-pressure chronic ulcer of unspecified part of left lower leg with fat layer exposed (3) Ulcer of right lower extremity with fat layer exposed Status: Chronic Current Visit: Yes Code(s): L97.912 - Non-pressure chronic ulcer of unspecified part of right lower leg with fat layer exposed (4) Delayed wound healing Status: Chronic Current Visit: No Code(s): T14.8XXD - Other injury of unspecified body region, subsequent encounter (5) Vasculitis Status: Chronic Current Visit: No Code(s): I77.6 - Arteritis, unspecified (6) Type 2 diabetes mellitus with diabetic polyneuropathy Status: Chronic Current Visit: Yes Code(s): E11.42 - Type 2 diabetes mellitus with diabetic polyneuropathy (7) Localized edema Status: Chronic Current Visit: Yes Code(s): R60.0 - Localized edema (8) Malnutrition Status: Chronic Current Visit: Yes Code(s): E46 - Unspecified protein- calorie malnutrition Type of Wound Date of Service: 10/19/18 Chief Complaint: right and left Leg ulcers and right foot ulcer History of Wound: Mr. Arguello is a 63-year-old male with multiple comorbidities follows up for delayed healing ulcers to the right foot as well as bilateral legs. It is noted he previously had widespread debridements and fasciotomies performed to bilateral lower extremities secondary to life-threatening and limb threatening infection; this was previously performed at [facility]. He continues to follow with Dr. Gilbert for her knee ulcers, and I saw him today for his other ulcer sites. He has been applying Santyl to both the wounds, Aquacel to leg ulcers, and wound VAC to right foot defect with quality and size reduction improvement. He denies chills, fever or otherwise feeling of unwell. He presents today with his . He refuses advanced wound care product application. He refuses hyperbaric oxygen therapy treatment. He continues to refuse surgical intervention. Progress of Wound: improving bilateral leg ulcers. improving right foot ulcer - Physical Exam Vital Signs Temp Pulse Resp BP 94.4 F L 87 16 126/74 H 10/19/18 09:18 10/19/18 09:18 10/19/18 09:18 10/19/18 09:18 General: Alert, Oriented x3, Cooperative Extremities: No cyanosis, No edema, Capillary Refill Less than 3 Seconds, No Calf Tenderness - Negative Errol and [place] bilateral, Diminished Peripheral Pulses Skin: Ulcer/ Wound - No purulence, erythema, strength, odor, or infection. There is no longer any exposed muscle or fascia tissue noted bilateral. Continued peripheral epithelialization is noted to all ulcer sites. The peripheral skin is hairless and atrophic. Wound Measurements and Assessment WC - Nurse 1 - General Ulcer Measurement Start: 09/28/18 09:15 Freq: Status: Active Protocol: Activity Type Activity Date Activity User E-Sign Co-Sign Detail Recorded Client Recorded Date Recorded By Document 10/19/18 09:18 [facility] [id number] 10/19/18 09:37 BM 10/19/18 09:18 Wound Center Nurse 1 [Ulcer Assessment] #10 right heel -Combined with other wound No -Current Size (cm) - Length 1 -Current Size (cm) - Width 0.7 -Current Size (cm) - Depth 0.1 -Total Square Cm 0.7 -Photo Taken No -Epithelialization None Present -Tunneling No -Undermining/Tunneling No -Circular Undermining No -Exudate Amt Small (1-33%) -Exudate Type Serosanguineous -Wound Margin Distinct, Outline Attached -Granulation Amt Small (1-33%) -Granulation Quality [place] -Slough/Fibrin Yes -Necrosis Amt Large (67-100%) -Necrotic Tissue Type Adherent Slough -Texture (Lisa-wound Skin Appearance) Scarring -Moisture (Lisa-wound Skin Appearance Maceration ) -Color (Lisa-wound Skin Appearance) Palor -Temperature (Lisa-wound Skin No Abnormality Appearance) (Pt Warm) -Tenderness on Palpation (Lisa-wound No Skin Appearance) -Ulcer Cleansing Wound Cleanser -Foul Odor after Cleansing No -Anesthetic Used 4% Lidocaine Solution 9.L knee -Combined with other wound No -Current Size (cm) - Length 0.1 -Current Size (cm) - Width 0.1 -Current Size (cm) - Depth 0.1 -Total Square Cm 0.01 -Photo Taken No -Epithelialization None Present -Tunneling No -Undermining/Tunneling No -Circular Undermining No -Exudate Amt Small (1-33%) -Exudate Type Serous -Wound Margin Distinct, Outline Attached -Granulation Amt None Present (0 %) -Slough/Fibrin Yes -Necrosis Amt Large (67-100%) -Necrotic Tissue Type Eschar -Texture (Lisa-wound Skin Appearance) Scarring -Moisture (Lisa-wound Skin Appearance Dry/Scaly ) -Color (Lisa-wound Skin Appearance) Assessed -Temperature (Lisa-wound Skin No Abnormality Appearance) (Pt Warm) -Tenderness on Palpation (Lisa-wound No Skin Appearance) -Ulcer Cleansing Wound Cleanser -Foul Odor after Cleansing No -Anesthetic Used 4% Lidocaine Solution #8 r Knee -Combined with other wound No -Current Size (cm) - Length 0.9 -Current Size (cm) - Width 1.2 -Current Size (cm) - Depth 0.3 -Total Square Cm 1.08 -Photo Taken No -Epithelialization None Present -Tunneling No -Undermining/Tunneling Yes -Undermining/Tunneling Starts (O' 12 clock) -Undermining/Tunneling Ends (O'clock) 12 -Maximum Distance (cm) 0.2 -Circular Undermining Yes -Exudate Amt Small (1-33%) -Exudate Type Serous -Wound Margin Distinct, Outline Attached -Granulation Amt Small (1-33%) -Granulation Quality [place] -Slough/Fibrin Yes -Necrosis Amt Large (67-100%) -Necrotic Tissue Type Adherent Slough -Texture (Lisa-wound Skin Appearance) Scarring -Moisture (Lisa-wound Skin Appearance Maceration ) Dry/Scaly -Color (Lisa-wound Skin Appearance) Palor -Temperature (Lisa-wound Skin No Abnormality Appearance) (Pt Warm) -Tenderness on Palpation (Lisa-wound No Skin Appearance) -Ulcer Cleansing Wound Cleanser -Foul Odor after Cleansing No -Anesthetic Used 4% Lidocaine Solution #6 L Post -Combined with other wound No -Current Size (cm) - Length 22.6 -Current Size (cm) - Width 2 -Current Size (cm) - Depth 0.1 -Total Square Cm 45.2 -Photo Taken No -Tunneling No -Undermining/Tunneling No -Circular Undermining No -Exudate Amt Medium (34-66%) -Exudate Type Serosanguineous -Wound Margin Distinct, Outline Attached -Granulation Amt Large (67-100%) -Granulation Quality Red -Slough/Fibrin Yes -Necrosis Amt Small (1-33%) -Necrotic Tissue Type Adherent Slough -Texture (Lisa-wound Skin Appearance) Scarring -Moisture (Lisa-wound Skin Appearance Dry/Scaly ) -Color (Lisa-wound Skin Appearance) Assessed -Temperature (Lisa-wound Skin No Abnormality Appearance) (Pt Warm) -Tenderness on Palpation (Lisa-wound No Skin Appearance) -Ulcer Cleansing Wound Cleanser -Foul Odor after Cleansing No -Anesthetic Used 4% Lidocaine Solution #5 R Lat LE -Combined with other wound No -Current Size (cm) - Length 2 -Current Size (cm) - Width 1.5 -Current Size (cm) - Depth 0.1 -Total Square Cm 3.0 -Photo Taken No -Epithelialization Small 1-33% -Tunneling No -Undermining/Tunneling No -Circular Undermining No -Exudate Amt Small (1-33%) -Exudate Type Serosanguineous -Wound Margin Distinct, Outline Attached -Granulation Amt Large (67-100%) -Granulation Quality Red -Slough/Fibrin Yes -Necrosis Amt Small (1-33%) -Necrotic Tissue Type Adherent Slough -Texture (Lisa-wound Skin Appearance) Scarring -Moisture (Lisa-wound Skin Appearance Dry/Scaly ) -Color (Lisa-wound Skin Appearance) Assessed -Temperature (Lisa-wound Skin No Abnormality Appearance) (Pt Warm) -Tenderness on Palpation (Lisa-wound No Skin Appearance) -Ulcer Cleansing Wound Cleanser -Foul Odor after Cleansing No -Anesthetic Used 4% Lidocaine Solution #4 R post LE -Combined with other wound No -Current Size (cm) - Length 1 -Current Size (cm) - Width 0.7 -Current Size (cm) - Depth 0.1 -Total Square Cm 0.7 -Photo Taken No -Epithelialization None Present -Tunneling No -Undermining/Tunneling No -Circular Undermining No -Exudate Amt Small (1-33%) -Exudate Type Serosanguineous -Wound Margin Distinct, Outline Attached -Granulation Amt None Present (0 %) -Slough/Fibrin Yes -Necrosis Amt Large (67-100%) -Necrotic Tissue Type Adherent Slough -Texture (Lisa-wound Skin Appearance) Scarring -Moisture (Lisa-wound Skin Appearance Dry/Scaly ) -Color (Lisa-wound Skin Appearance) Assessed -Temperature (Lisa-wound Skin No Abnormality Appearance) (Pt Warm) -Tenderness on Palpation (Lisa-wound No Skin Appearance) -Ulcer Cleansing Wound Cleanser -Foul Odor after Cleansing No -Anesthetic Used 4% Lidocaine Solution #3 R Med LE -Combined with other wound No -Current Size (cm) - Length 2.4 -Current Size (cm) - Width 0.7 -Current Size (cm) - Depth 0.6 -Total Square Cm 1.68 -Photo Taken No -Epithelialization None Present -Tunneling No -Undermining/Tunneling No -Circular Undermining No -Exudate Amt Medium (34-66%) -Exudate Type Serosanguineous -Wound Margin Distinct, Outline Attached -Granulation Amt Small (1-33%) -Granulation Quality Red -Slough/Fibrin Yes -Necrosis Amt Large (67-100%) -Necrotic Tissue Type Adherent Slough -Structure Exposed Tendon -Texture (Lias-wound Skin Appearance) Scarring -Moisture (Lisa-wound Skin Appearance Dry/Scaly ) -Color (Lisa-wound Skin Appearance) Assessed -Temperature (Lisa-wound Skin No Abnormality Appearance) (Pt Warm) -Tenderness on Palpation (Lisa-wound No Skin Appearance) -Ulcer Cleansing Wound Cleanser -Foul Odor after Cleansing No -Anesthetic Used 4% Lidocaine Solution #2 R [place] Cluster -Combined with other wound No -Current Size (cm) - Length 11.8 -Current Size (cm) - Width 4 -Current Size (cm) - Depth 0.1 -Total Square Cm 47.2 -Photo Taken No -Epithelialization Small 1-33% -Tunneling No -Undermining/Tunneling No -Circular Undermining No -Exudate Amt Medium (34-66%) -Exudate Type Serosanguineous -Wound Margin Distinct, Outline Attached -Granulation Amt Large (67-100%) -Granulation Quality Red -Slough/Fibrin Yes -Necrosis Amt Small (1-33%) -Necrotic Tissue Type Adherent Slough -Texture (Lisa-wound Skin Appearance) Scarring -Moisture (Lisa-wound Skin Appearance Dry/Scaly ) -Color (Lisa-wound Skin Appearance) Assessed -Temperature (Lisa-wound Skin No Abnormality Appearance) (Pt Warm) -Tenderness on Palpation (Lisa-wound No Skin Appearance) -Ulcer Cleansing Wound Cleanser -Foul Odor after Cleansing No -Anesthetic Used 4% Lidocaine Solution #1 R 2nd toe amp/Arch/ Med Ankle -Combined with other wound No -Current Size (cm) - Length 26 -Current Size (cm) - Width 2.6 -Current Size (cm) - Depth 1.4 -Total Square Cm 67.6 -Photo Taken No -Epithelialization Small 1-33% -Tunneling No -Undermining/Tunneling No -Circular Undermining No -Exudate Amt Small (1-33%) -Exudate Type Serosanguineous -Wound Margin Distinct, Outline Attached -Granulation Amt Large (67-100%) -Granulation Quality Red -Slough/Fibrin Yes -Necrosis Amt Small (1-33%) -Necrotic Tissue Type Adherent Slough -Texture (Lisa-wound Skin Appearance) Scarring -Moisture (Lisa-wound Skin Appearance Maceration ) -Color (Lisa-wound Skin Appearance) Palor -Temperature (Lisa-wound Skin No Abnormality Appearance) (Pt Warm) -Tenderness on Palpation (Lisa-wound No Skin Appearance) -Ulcer Cleansing Wound Cleanser -Foul Odor after Cleansing No -Anesthetic Used 4% Lidocaine Solution [Edema Assessment] -Lower Limb Edema Present No -Right Calf (cm) 34 -Right Ankle (cm) 21 -Left Calf (cm) 32.5 -Left Ankle (cm) 20.3 WC - Nurse 2 - General Ulcer CM Notes Start: 09/28/18 09:15 Freq: Status: Active Protocol: Activity Type Activity Date Activity User E-Sign Co-Sign Detail Recorded Client Recorded Date Recorded By Document 10/19/18 09:58 TM [id number] 10/19/18 10:15 TM Document 10/19/18 10:28 MW [id number] 10/19/18 10:31 MW 10/19/18 10/19/18 09:58 10:28 Wound Center Nurse 2 [Procedure/Treatment] #10 right heel -Time 10:10 -Correct Patient Yes -Correct Side, Site, Position Yes -Correct Procedure Yes -Procedure Performed Yes -Type of Procedure Debridement -Clinical Debridement Subcutaneous -Post Debridement Size (cm) - Length 1.1 -Post Debridement Size (cm) - Width 0.8 -Post Debridement Size (cm) - Depth 0.1 -Total Square Cm 0.88 -Wound/Ulcer Outcome Not Healed -Ulcer Cleansing Rinsed/ Irrigated with Saline -Foul Odor after Cleansing No -Bioengineered Tissue No -Topical Lidocaine (%) 4 -Bleeding Controlled with Pressure -Treatment Response Procedure Tolerated Well 9.L knee -Time 10:29 -Correct Patient Yes -Correct Side, Site, Position Yes -Correct Procedure Yes -Procedure Performed Yes -Type of Procedure Debridement -Clinical Debridement Selective -Post Debridement Size (cm) - Length 0.1 -Post Debridement Size (cm) - Width 0.1 -Post Debridement Size (cm) - Depth 0.1 -Total Square Cm 0.01 -Wound/Ulcer Outcome Not Healed -Ulcer Cleansing Rinsed/ Irrigated with Saline -Foul Odor after Cleansing No -Bioengineered Tissue No -Bleeding Controlled with Pressure -Treatment Response Procedure Tolerated Well #8 r Knee -Time 10:29 -Correct Patient Yes -Correct Side, Site, Position Yes -Correct Procedure Yes -Procedure Performed Yes -Type of Procedure Debridement -Clinical Debridement Subcutaneous -Post Debridement Size (cm) - Length 1.0 -Post Debridement Size (cm) - Width 1.0 -Post Debridement Size (cm) - Depth 0.2 -Total Square Cm 1.00 -Wound/Ulcer Outcome Not Healed -Ulcer Cleansing Rinsed/ Irrigated with Saline -Foul Odor after Cleansing No -Bioengineered Tissue No -Bleeding Controlled with Pressure -Treatment Response Procedure Tolerated Well #6 L Post -Time 10:11 -Correct Patient Yes -Correct Side, Site, Position Yes -Correct Procedure Yes -Procedure Performed Yes -Type of Procedure Debridement -Clinical Debridement Subcutaneous -Post Debridement Size (cm) - Length 22.7 -Post Debridement Size (cm) - Width 2.1 -Post Debridement Size (cm) - Depth 0.1 -Total Square Cm 47.67 -Wound/Ulcer Outcome Not Healed -Ulcer Cleansing Rinsed/ Irrigated with Saline -Foul Odor after Cleansing No -Bioengineered Tissue No -Topical Lidocaine (%) 4 -Bleeding Controlled with Pressure -Treatment Response Procedure Tolerated Well #5 R Lat LE -Time 10:11 -Correct Patient Yes -Correct Side, Site, Position Yes -Correct Procedure Yes -Procedure Performed Yes -Type of Procedure Debridement -Clinical Debridement Subcutaneous -Post Debridement Size (cm) - Length 2.1 -Post Debridement Size (cm) - Width 1.6 -Post Debridement Size (cm) - Depth 0.1 -Total Square Cm 3.36 -Wound/Ulcer Outcome Not Healed -Ulcer Cleansing Rinsed/ Irrigated with Saline -Foul Odor after Cleansing No -Bioengineered Tissue No -Topical Lidocaine (%) 4 -Bleeding Controlled with Pressure -Treatment Response Procedure Tolerated Well #4 R post LE -Time 10:12 -Correct Patient Yes -Correct Side, Site, Position Yes -Correct Procedure Yes -Procedure Performed Yes -Type of Procedure Debridement -Clinical Debridement Subcutaneous -Post Debridement Size (cm) - Length 1.1 -Post Debridement Size (cm) - Width 0.8 -Post Debridement Size (cm) - Depth 0.1 -Total Square Cm 0.88 -Wound/Ulcer Outcome Not Healed -Ulcer Cleansing Rinsed/ Irrigated with Saline -Foul Odor after Cleansing No -Bioengineered Tissue No -Topical Lidocaine (%) 4 -Bleeding Controlled with Pressure -Treatment Response Procedure Tolerated Well #3 R Med LE -Time 10:12 -Correct Patient Yes -Correct Side, Site, Position Yes -Correct Procedure Yes -Procedure Performed Yes -Type of Procedure Debridement -Clinical Debridement Subcutaneous -Post Debridement Size (cm) - Length 2.5 -Post Debridement Size (cm) - Width 0.8 -Post Debridement Size (cm) - Depth 0.6 -Total Square Cm 2.00 -Wound/Ulcer Outcome Not Healed -Ulcer Cleansing Rinsed/ Irrigated with Saline -Foul Odor after Cleansing No -Bioengineered Tissue No -Topical Lidocaine (%) 4 -Bleeding Controlled with Pressure -Treatment Response Procedure Tolerated Well #2 R [place] Cluster -Time 10:12 -Correct Patient Yes -Correct Side, Site, Position Yes -Correct Procedure Yes -Procedure Performed Yes -Type of Procedure Debridement -Clinical Debridement Subcutaneous -Post Debridement Size (cm) - Length 11.9 -Post Debridement Size (cm) - Width 4.1 -Post Debridement Size (cm) - Depth 0.1 -Total Square Cm 48.79 -Wound/Ulcer Outcome Not Healed -Ulcer Cleansing Rinsed/ Irrigated with Saline -Foul Odor after Cleansing No -Bioengineered Tissue No -Topical Lidocaine (%) 4 -Bleeding Controlled with Pressure -Treatment Response Procedure Tolerated Well #1 R 2nd toe amp/Arch/ Med Ankle -Time 10:13 -Correct Patient Yes -Correct Side, Site, Position Yes -Correct Procedure Yes -Procedure Performed Yes -Type of Procedure Debridement -Clinical Debridement Subcutaneous -Post Debridement Size (cm) - Length 26.1 -Post Debridement Size (cm) - Width 2.7 -Post Debridement Size (cm) - Depth 1.4 -Total Square Cm 70.47 -Wound/Ulcer Outcome Not Healed -Ulcer Cleansing Rinsed/ Irrigated with Saline -Bioengineered Tissue No -Topical Lidocaine (%) 4 -Bleeding Controlled with Pressure -Treatment Response Procedure Tolerated Well [See Physician Procedure note for Specifics] Pain Scale: 0-10 Numeric [Pain] -Is Patient Pain Free? Yes Musculoskeletal: No Tenderness to Palpation of Joints or Extremities, Muscle Wasting, - - Lack of muscular strength of the lower extremities and inability to weight-bear noted Neurological: - - Lack of epicritic sensation consistent with neuropathy noted bilateral lower extremities Psych/Mental Status: Normal Affect, Appropriate Debridement Note Post-Debridement Measurements/Treatment WC - Nurse 2 - General Ulcer CM Notes Start: 09/28/18 09:15 Freq: Status: Active Protocol: Activity Type Activity Date Activity User E-Sign Co-Sign Detail Recorded Client Recorded Date Recorded By Document 09/28/18 10:06 TM [id number] 09/28/18 10:15 TM Document 09/28/18 10:41 MW [id number] 09/28/18 10:51 MW Document 10/05/18 10:10 [id number] 10/05/18 10:11 CS Document 10/05/18 15:32 TM [id number] 10/05/18 15:36 TM Document 10/12/18 09:39 TM [id number] 10/12/18 09:52 TM Document 10/12/18 10:02 MW [id number] 10/12/18 10:07 MW Document 10/19/18 09:58 TM [id number] 10/19/18 10:15 TM Document 10/19/18 10:28 MW [id number] 10/19/18 10:31 MW 09/28/18 09/28/18 10/05/18 10:06 10:41 10:10 Wound Center Nurse 2 #10 right heel -Time 10:13 -Correct Patient Yes -Correct Side, Site, Position Yes -Correct Procedure Yes -Procedure Performed Yes -Type of Procedure Debridement -Clinical Debridement Subcutaneous -Post Debridement Size (cm) - Length 1.4 -Post Debridement Size (cm) - Width 1.0 -Post Debridement Size (cm) - Depth 0.1 -Total Square Cm 1.40 -Wound/Ulcer Outcome Not Healed -Ulcer Cleansing Rinsed/ Irrigated with Saline -Foul Odor after Cleansing No -Bioengineered Tissue No -Topical Lidocaine (%) 4 -Bleeding Controlled with Pressure -Treatment Response Procedure Tolerated Well 9.L knee -Time 10:42 10:10 -Correct Patient Yes Yes -Correct Side, Site, Position Yes Yes -Correct Procedure Yes Yes -Procedure Performed Yes Yes -Type of Procedure Debridement Debridement -Clinical Debridement Subcutaneous Subcutaneous -Post Debridement Size (cm) - Length 0.2 0.4 -Post Debridement Size (cm) - Width 0.6 0.5 -Post Debridement Size (cm) - Depth 0.1 0.2 -Total Square Cm 0.12 0.20 -Wound/Ulcer Outcome Not Healed Not Healed -Ulcer Cleansing Rinsed/ Rinsed/ Irrigated with Irrigated with Saline Saline -Foul Odor after Cleansing No No -Bioengineered Tissue No No -Bleeding Controlled with Pressure NA -Treatment Response Procedure Procedure Tolerated Well Tolerated Well #8 r Knee -Time 10:42 10:10 -Correct Patient Yes Yes -Correct Side, Site, Position Yes Yes -Correct Procedure Yes Yes -Procedure Performed Yes Yes -Type of Procedure Debridement Debridement -Clinical Debridement Subcutaneous Subcutaneous -Post Debridement Size (cm) - Length 1.2 1 -Post Debridement Size (cm) - Width 1.7 1.2 -Post Debridement Size (cm) - Depth 0.3 0.2 -Total Square Cm 2.04 1.2 -Wound/Ulcer Outcome Not Healed Not Healed -Ulcer Cleansing Rinsed/ Not Cleansed Irrigated with Saline -Foul Odor after Cleansing No No -Bioengineered Tissue No No -Bleeding Controlled with Pressure NA -Treatment Response Procedure Procedure Tolerated Well Tolerated Well #6 L Post -Time 10:09 -Correct Patient Yes -Correct Side, Site, Position Yes -Correct Procedure Yes -Procedure Performed Yes -Type of Procedure Debridement -Clinical Debridement Muscle -Post Debridement Size (cm) - Length 21.1 -Post Debridement Size (cm) - Width 2.1 -Post Debridement Size (cm) - Depth 0.5 -Total Square Cm 44.31 -Wound/Ulcer Outcome Not Healed -Ulcer Cleansing Rinsed/ Irrigated with Saline -Foul Odor after Cleansing No -Bioengineered Tissue No -Topical Lidocaine (%) 4 -Bleeding Controlled with Pressure -Treatment Response Procedure Tolerated Well #5 R Lat LE -Time 10:09 -Correct Patient Yes -Correct Side, Site, Position Yes -Correct Procedure Yes -Procedure Performed Yes -Type of Procedure Debridement -Clinical Debridement Subcutaneous -Post Debridement Size (cm) - Length 3.2 -Post Debridement Size (cm) - Width 1.8 -Post Debridement Size (cm) - Depth 0.1 -Total Square Cm 5.76 -Wound/Ulcer Outcome Not Healed -Ulcer Cleansing Rinsed/ Irrigated with Saline -Foul Odor after Cleansing No -Bioengineered Tissue No -Topical Lidocaine (%) 4 -Bleeding Controlled with Pressure -Treatment Response Procedure Tolerated Well #4 R post LE -Time 10:10 -Correct Patient Yes -Correct Side, Site, Position Yes -Correct Procedure Yes -Procedure Performed Yes -Type of Procedure Debridement -Clinical Debridement Subcutaneous -Post Debridement Size (cm) - Length 1.3 -Post Debridement Size (cm) - Width 1.1 -Post Debridement Size (cm) - Depth 0.1 -Total Square Cm 1.43 -Wound/Ulcer Outcome Not Healed -Ulcer Cleansing Rinsed/ Irrigated with Saline -Foul Odor after Cleansing No -Bioengineered Tissue No -Topical Lidocaine (%) 4 -Bleeding Controlled with Pressure -Treatment Response Procedure Tolerated Well #3 R Med LE -Time 10:10 -Correct Patient Yes -Correct Side, Site, Position Yes -Correct Procedure Yes -Procedure Performed Yes -Type of Procedure Debridement -Clinical Debridement Subcutaneous -Post Debridement Size (cm) - Length 3.6 -Post Debridement Size (cm) - Width 1.6 -Post Debridement Size (cm) - Depth 0.3 -Total Square Cm 5.76 -Wound/Ulcer Outcome Not Healed -Ulcer Cleansing Rinsed/ Irrigated with Saline -Foul Odor after Cleansing No -Bioengineered Tissue No -Topical Lidocaine (%) 4 -Bleeding Controlled with Pressure -Treatment Response Procedure Tolerated Well #2 R [place] Cluster -Time 10:11 -Correct Patient Yes -Correct Side, Site, Position Yes -Correct Procedure Yes -Procedure Performed Yes -Type of Procedure Debridement -Clinical Debridement Subcutaneous -Post Debridement Size (cm) - Length 15.6 -Post Debridement Size (cm) - Width 3.9 -Post Debridement Size (cm) - Depth 0.1 -Total Square Cm 60.84 -Wound/Ulcer Outcome Not Healed -Ulcer Cleansing Rinsed/ Irrigated with Saline -Foul Odor after Cleansing No -Bioengineered Tissue No -Topical Lidocaine (%) 4 -Bleeding Controlled with Pressure -Treatment Response Procedure Tolerated Well #1 R 2nd toe amp/Arch/ Med Ankle -Time 10:11 -Correct Patient Yes -Correct Side, Site, Position Yes -Correct Procedure Yes -Procedure Performed Yes -Type of Procedure Debridement -Clinical Debridement Subcutaneous -Post Debridement Size (cm) - Length 29.1 -Post Debridement Size (cm) - Width 2.9 -Post Debridement Size (cm) - Depth 1.3 -Total Square Cm 84.39 -Wound/Ulcer Outcome Not Healed -Ulcer Cleansing Rinsed/ Irrigated with Saline -Foul Odor after Cleansing No -Bioengineered Tissue No -Topical Lidocaine (%) 4 -Bleeding Controlled with Pressure -Treatment Response Procedure Tolerated Well Pain Scale: 0-10 Numeric Is Patient Pain Free? Yes 18 10/12/18 10/12/18 15:32 09:39 10:02 Wound Center Nurse 2 #10 right heel -Time 15:32 09:49 -Correct Patient Yes Yes -Correct Side, Site, Position Yes Yes -Correct Procedure Yes Yes -Procedure Performed Yes Yes -Type of Procedure Debridement Debridement -Clinical Debridement Subcutaneous Subcutaneous -Post Debridement Size (cm) - Length 0.6 1.0 -Post Debridement Size (cm) - Width 1.0 0.8 -Post Debridement Size (cm) - Depth 0.2 0.2 -Total Square Cm 0.60 0.80 -Wound/Ulcer Outcome Not Healed Not Healed -Ulcer Cleansing Rinsed/ Rinsed/ Irrigated with Irrigated with Saline Saline -Foul Odor after Cleansing No No -Bioengineered Tissue No No -Topical Lidocaine (%) 4 4 -Bleeding Controlled with Pressure Pressure -Treatment Response Procedure Procedure Tolerated Well Tolerated Well 9.L knee -Time 10:03 -Correct Patient Yes -Correct Side, Site, Position Yes -Correct Procedure Yes -Procedure Performed Yes -Type of Procedure Debridement -Clinical Debridement Subcutaneous -Post Debridement Size (cm) - Length 0.2 -Post Debridement Size (cm) - Width 0.4 -Post Debridement Size (cm) - Depth 0.2 -Total Square Cm 0.08 -Wound/Ulcer Outcome Not Healed -Ulcer Cleansing Rinsed/ Irrigated with Saline -Foul Odor after Cleansing No -Bioengineered Tissue No -Bleeding Controlled with Pressure -Treatment Response Procedure Tolerated Well #8 r Knee -Time 10:03 -Correct Patient Yes -Correct Side, Site, Position Yes -Correct Procedure Yes -Procedure Performed Yes -Type of Procedure Debridement -Clinical Debridement Subcutaneous -Post Debridement Size (cm) - Length 1.1 -Post Debridement Size (cm) - Width 1.1 -Post Debridement Size (cm) - Depth 0.3 -Total Square Cm 1.21 -Wound/Ulcer Outcome Not Healed -Ulcer Cleansing Rinsed/ Irrigated with Saline -Foul Odor after Cleansing No -Bioengineered Tissue No -Bleeding Controlled with Pressure -Treatment Response Procedure Tolerated Well #6 L Post -Time 15:32 09:49 -Correct Patient Yes Yes -Correct Side, Site, Position Yes Yes -Correct Procedure Yes Yes -Procedure Performed Yes Yes -Type of Procedure Debridement Debridement -Clinical Debridement Subcutaneous Subcutaneous -Post Debridement Size (cm) - Length 14.3 21.6 -Post Debridement Size (cm) - Width 2.7 2.6 -Post Debridement Size (cm) - Depth 0.2 0.2 -Total Square Cm 38.61 56.16 -Wound/Ulcer Outcome Not Healed Not Healed -Ulcer Cleansing Rinsed/ Rinsed/ Irrigated with Irrigated with Saline Saline -Foul Odor after Cleansing No No -Bioengineered Tissue No No -Topical Lidocaine (%) 4 4 -Bleeding Controlled with Pressure Pressure -Treatment Response Procedure Procedure Tolerated Well Tolerated Well #5 R Lat LE -Time 15:33 09:50 -Correct Patient Yes Yes -Correct Side, Site, Position Yes Yes -Correct Procedure Yes Yes -Procedure Performed Yes Yes -Type of Procedure Debridement Debridement -Clinical Debridement Subcutaneous Subcutaneous -Post Debridement Size (cm) - Length 2.6 2.5 -Post Debridement Size (cm) - Width 2.1 2.0 -Post Debridement Size (cm) - Depth 0.2 0.2 -Total Square Cm 5.46 5.00 -Wound/Ulcer Outcome Not Healed Not Healed -Ulcer Cleansing Rinsed/ Rinsed/ Irrigated with Irrigated with Saline Saline -Foul Odor after Cleansing No No -Bioengineered Tissue No No -Topical Lidocaine (%) 4 -Bleeding Controlled with Pressure Pressure -Treatment Response Procedure Procedure Tolerated Well Tolerated Well #4 R post LE -Time 15:33 09:50 -Correct Patient Yes Yes -Correct Side, Site, Position Yes Yes -Correct Procedure Yes Yes -Procedure Performed Yes Yes -Type of Procedure Debridement Debridement -Clinical Debridement Subcutaneous Subcutaneous -Post Debridement Size (cm) - Length 3.3 1.1 -Post Debridement Size (cm) - Width 1.1 1.0 -Post Debridement Size (cm) - Depth 0.3 0.2 -Total Square Cm 3.63 1.10 -Wound/Ulcer Outcome Not Healed Not Healed -Ulcer Cleansing Rinsed/ Rinsed/ Irrigated with Irrigated with Saline Saline -Foul Odor after Cleansing No No -Bioengineered Tissue No No -Topical Lidocaine (%) 4 4 -Bleeding Controlled with Pressure Pressure -Treatment Response Procedure Procedure Tolerated Well Tolerated Well #3 R Med LE -Time 15:34 09:51 -Correct Patient Yes Yes -Correct Side, Site, Position Yes Yes -Correct Procedure Yes Yes -Procedure Performed Yes Yes -Type of Procedure Debridement Debridement -Clinical Debridement Subcutaneous Subcutaneous -Post Debridement Size (cm) - Length 1.2 2.9 -Post Debridement Size (cm) - Width 1.0 1.1 -Post Debridement Size (cm) - Depth 0.2 0.3 -Total Square Cm 1.20 3.19 -Wound/Ulcer Outcome Not Healed Not Healed -Ulcer Cleansing Rinsed/ Rinsed/ Irrigated with Irrigated with Saline Saline -Foul Odor after Cleansing No No -Bioengineered Tissue No No -Topical Lidocaine (%) 4 4 -Bleeding Controlled with Pressure Pressure -Treatment Response Procedure Procedure Tolerated Well Tolerated Well #2 R [place] Cluster -Time 15:34 09:51 -Correct Patient Yes Yes -Correct Side, Site, Position Yes Yes -Correct Procedure Yes Yes -Procedure Performed Yes Yes -Type of Procedure Debridement Debridement -Clinical Debridement Subcutaneous Subcutaneous -Post Debridement Size (cm) - Length 22.1 22.0 -Post Debridement Size (cm) - Width 3.8 3.6 -Post Debridement Size (cm) - Depth 0.2 0.1 -Total Square Cm 83.98 79.20 -Wound/Ulcer Outcome Not Healed Not Healed -Ulcer Cleansing Rinsed/ Rinsed/ Irrigated with Irrigated with Saline Saline -Foul Odor after Cleansing No No -Bioengineered Tissue No No -Topical Lidocaine (%) 4 4 -Bleeding Controlled with Pressure Pressure -Treatment Response Procedure Procedure Tolerated Well Tolerated Well #1 R 2nd toe amp/Arch/ Med Ankle -Time 15:35 09:51 -Correct Patient Yes Yes -Correct Side, Site, Position Yes Yes -Correct Procedure Yes Yes -Procedure Performed Yes Yes -Type of Procedure Debridement Debridement -Clinical Debridement Subcutaneous Subcutaneous -Post Debridement Size (cm) - Length 29.2 29.6 -Post Debridement Size (cm) - Width 3.0 3.4 -Post Debridement Size (cm) - Depth 1.3 1.4 -Total Square Cm 87.60 100.64 -Wound/Ulcer Outcome Not Healed Not Healed -Ulcer Cleansing Rinsed/ Rinsed/ Irrigated with Irrigated with Saline Saline -Foul Odor after Cleansing No No -Bioengineered Tissue No No -Topical Lidocaine (%) 4 4 -Bleeding Controlled with Pressure Pressure -Treatment Response Procedure Procedure Tolerated Well Tolerated Well Pain Scale: 0-10 Numeric Is Patient Pain Free? Yes Yes 10/19/18 10/19/18 09:58 10:28 Wound Center Nurse 2 #10 right heel -Time 10:10 -Correct Patient Yes -Correct Side, Site, Position Yes -Correct Procedure Yes -Procedure Performed Yes -Type of Procedure Debridement -Clinical Debridement Subcutaneous -Post Debridement Size (cm) - Length 1.1 -Post Debridement Size (cm) - Width 0.8 -Post Debridement Size (cm) - Depth 0.1 -Total Square Cm 0.88 -Wound/Ulcer Outcome Not Healed -Ulcer Cleansing Rinsed/ Irrigated with Saline -Foul Odor after Cleansing No -Bioengineered Tissue No -Topical Lidocaine (%) 4 -Bleeding Controlled with Pressure -Treatment Response Procedure Tolerated Well 9.L knee -Time 10:29 -Correct Patient Yes -Correct Side, Site, Position Yes -Correct Procedure Yes -Procedure Performed Yes -Type of Procedure Debridement -Clinical Debridement Selective -Post Debridement Size (cm) - Length 0.1 -Post Debridement Size (cm) - Width 0.1 -Post Debridement Size (cm) - Depth 0.1 -Total Square Cm 0.01 -Wound/Ulcer Outcome Not Healed -Ulcer Cleansing Rinsed/ Irrigated with Saline -Foul Odor after Cleansing No -Bioengineered Tissue No -Bleeding Controlled with Pressure -Treatment Response Procedure Tolerated Well #8 r Knee -Time 10:29 -Correct Patient Yes -Correct Side, Site, Position Yes -Correct Procedure Yes -Procedure Performed Yes -Type of Procedure Debridement -Clinical Debridement Subcutaneous -Post Debridement Size (cm) - Length 1.0 -Post Debridement Size (cm) - Width 1.0 -Post Debridement Size (cm) - Depth 0.2 -Total Square Cm 1.00 -Wound/Ulcer Outcome Not Healed -Ulcer Cleansing Rinsed/ Irrigated with Saline -Foul Odor after Cleansing No -Bioengineered Tissue No -Bleeding Controlled with Pressure -Treatment Response Procedure Tolerated Well #6 L Post -Time 10:11 -Correct Patient Yes -Correct Side, Site, Position Yes -Correct Procedure Yes -Procedure Performed Yes -Type of Procedure Debridement -Clinical Debridement Subcutaneous -Post Debridement Size (cm) - Length 22.7 -Post Debridement Size (cm) - Width 2.1 -Post Debridement Size (cm) - Depth 0.1 -Total Square Cm 47.67 -Wound/Ulcer Outcome Not Healed -Ulcer Cleansing Rinsed/ Irrigated with Saline -Foul Odor after Cleansing No -Bioengineered Tissue No -Topical Lidocaine (%) 4 -Bleeding Controlled with Pressure -Treatment Response Procedure Tolerated Well #5 R Lat LE -Time 10:11 -Correct Patient Yes -Correct Side, Site, Position Yes -Correct Procedure Yes -Procedure Performed Yes -Type of Procedure Debridement -Clinical Debridement Subcutaneous -Post Debridement Size (cm) - Length 2.1 -Post Debridement Size (cm) - Width 1.6 -Post Debridement Size (cm) - Depth 0.1 -Total Square Cm 3.36 -Wound/Ulcer Outcome Not Healed -Ulcer Cleansing Rinsed/ Irrigated with Saline -Foul Odor after Cleansing No -Bioengineered Tissue No -Topical Lidocaine (%) 4 -Bleeding Controlled with Pressure -Treatment Response Procedure Tolerated Well #4 R post LE -Time 10:12 -Correct Patient Yes -Correct Side, Site, Position Yes -Correct Procedure Yes -Procedure Performed Yes -Type of Procedure Debridement -Clinical Debridement Subcutaneous -Post Debridement Size (cm) - Length 1.1 -Post Debridement Size (cm) - Width 0.8 -Post Debridement Size (cm) - Depth 0.1 -Total Square Cm 0.88 -Wound/Ulcer Outcome Not Healed -Ulcer Cleansing Rinsed/ Irrigated with Saline -Foul Odor after Cleansing No -Bioengineered Tissue No -Topical Lidocaine (%) 4 -Bleeding Controlled with Pressure -Treatment Response Procedure Tolerated Well #3 R Med LE -Time 10:12 -Correct Patient Yes -Correct Side, Site, Position Yes -Correct Procedure Yes -Procedure Performed Yes -Type of Procedure Debridement -Clinical Debridement Subcutaneous -Post Debridement Size (cm) - Length 2.5 -Post Debridement Size (cm) - Width 0.8 -Post Debridement Size (cm) - Depth 0.6 -Total Square Cm 2.00 -Wound/Ulcer Outcome Not Healed -Ulcer Cleansing Rinsed/ Irrigated with Saline -Foul Odor after Cleansing No -Bioengineered Tissue No -Topical Lidocaine (%) 4 -Bleeding Controlled with Pressure -Treatment Response Procedure Tolerated Well #2 R [place] Cluster -Time 10:12 -Correct Patient Yes -Correct Side, Site, Position Yes -Correct Procedure Yes -Procedure Performed Yes -Type of Procedure Debridement -Clinical Debridement Subcutaneous -Post Debridement Size (cm) - Length 11.9 -Post Debridement Size (cm) - Width 4.1 -Post Debridement Size (cm) - Depth 0.1 -Total Square Cm 48.79 -Wound/Ulcer Outcome Not Healed -Ulcer Cleansing Rinsed/ Irrigated with Saline -Foul Odor after Cleansing No -Bioengineered Tissue No -Topical Lidocaine (%) 4 -Bleeding Controlled with Pressure -Treatment Response Procedure Tolerated Well #1 R 2nd toe amp/Arch/ Med Ankle -Time 10:13 -Correct Patient Yes -Correct Side, Site, Position Yes -Correct Procedure Yes -Procedure Performed Yes -Type of Procedure Debridement -Clinical Debridement Subcutaneous -Post Debridement Size (cm) - Length 26.1 -Post Debridement Size (cm) - Width 2.7 -Post Debridement Size (cm) - Depth 1.4 -Total Square Cm 70.47 -Wound/Ulcer Outcome Not Healed -Ulcer Cleansing Rinsed/ Irrigated with Saline -Foul Odor after Cleansing -Bioengineered Tissue No -Topical Lidocaine (%) 4 -Bleeding Controlled with Pressure -Treatment Response Procedure Tolerated Well Pain Scale: 0-10 Numeric Is Patient Pain Free? Yes Wound debrided: posterior leg Laterality: Left Wound Grade/Stage: grade 3 Type of Debridement: Excisional debridement Anesthesia Used: 5% Lidocaine Gel Depth: in the subcutaneous layer Percentage of wound debrided: 100 Instrument Used: #15 blade Tissue Removed: fibrous, devitalized subcutaneous, biofilm, slough Severity: Fat Layer Exposed Amount of bleeding with debridement: Mild Bleeding Controlled with: Pressure Patient tolerated procedure well - Additional Wound Wound debrided: anterior leg (orellana) Laterality: Right Wound Grade/Stage: grade 1 Type of Debridement: Excisional debridement Anesthesia Used: 5% Lidocaine Gel Depth: in the subcutaneous layer Percentage of wound debrided: 100 Instrument Used: #15 blade Tissue Removed: fibrous, devitalized subcutaneous, biofilm, slough Severity: Fat Layer Exposed Amount of bleeding with debridement: Mild Bleeding Controlled with: Pressure Patient tolerated procedure: Patient tolerated procedure well - Additional Wound Wound debrided: medial leg Laterality: Right Wound Grade/Stage: grade 1 Type of Debridement: Excisional debridement Anesthesia Used: 5% Lidocaine Gel Depth: in the subcutaneous layer Percentage of wound debrided: 100 Instrument Used: #15 blade Tissue Removed: fibrous, devitalized subcutaneous, biofilm, slough Severity: Fat Layer Exposed Amount of bleeding with debridement: Mild Bleeding Controlled with: Pressure Patient tolerated procedure: Patient tolerated procedure well - Additional Wound Wound debrided: lateral leg Laterality: Right Wound Grade/Stage: grade 1 Type of Debridement: Excisional debridement Anesthesia Used: 5% Lidocaine Gel Depth: in the subcutaneous layer Percentage of wound debrided: 100 Instrument Used: #15 blade Tissue Removed: fibrous, devitalized subcutaneous, biofilm, slough Severity: Fat Layer Exposed Amount of bleeding with debridement: Mild Bleeding Controlled with: Pressure Patient tolerated procedure: Patient tolerated procedure well - Additional Wound Wound debrided: foot Laterality: Right Wound Grade/Stage: grade 3 Type of Debridement: Excisional debridement Anesthesia Used: 5% Lidocaine Gel Depth: in the subcutaneous layer Percentage of wound debrided: 100 Instrument Used: #15 blade Tissue Removed: fibrous, devitalized subcutaneous, biofilm, slough Severity: Fat Layer Exposed Amount of bleeding with debridement: Mild Bleeding Controlled with: Pressure Patient tolerated procedure: Patient tolerated procedure well - Additional Wound Wound debrided: posterior leg Laterality: Right Wound Grade/Stage: grade 1 Type of Debridement: Excisional debridement Anesthesia Used: 5% Lidocaine Gel Depth: in the subcutaneous layer Percentage of wound debrided: 100 Instrument Used: #15 blade Tissue Removed: fibrous, devitalized subcutaneous, biofilm, slough Severity: Fat Layer Exposed Amount of bleeding with debridement: Mild Bleeding Controlled with: Pressure Patient tolerated procedure: Patient tolerated procedure well - Additional Wound Wound debrided: heel Laterality: Right Wound Grade/Stage: grade 1 Type of Debridement: Excisional debridement Anesthesia Used: 5% Lidocaine Gel Percentage of wound debrided: 100 Instrument Used: #15 blade Tissue Removed: fibrous, devitalized subcutaneous, biofilm, slough Severity: Fat Layer Exposed Amount of bleeding with debridement: Mild Bleeding Controlled with: Pressure Patient tolerated procedure: Patient tolerated procedure well Assessment/Plan Active Problems (Last Updated 09/28/18 @ 12:41 by Geraldine Steele) Ulcer of right foot with fat layer exposed (Chronic) Ulcer of right lower extremity with fat layer exposed (Chronic) Ulcer of left lower extremity with fat layer exposed (Chronic) Type 2 diabetes mellitus with diabetic polyneuropathy (Chronic) Localized edema (Chronic) Malnutrition (Chronic) Assessment: Open second and third ray resection secondary to 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 Diabetic neuropathy. Malnutrition suspected. 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 Delayed healing. Gait impairment and fall risk. Other comorbidities, right knee ulcer, tendon exposed (Dr. Gilbert managed), left knee ulcer (Dr. Gilbert managed) Plan: I reviewed and discussed his case with the patient and the patient's . Subcutaneous debridements were performed as noted in the clinical panel. I Recommended changing the dressings daily with halfway facility staff assistance with santyl to knees (per Dr. Gilbert) and aquacel ag to the leg ulcers, santyl to devitalized tendon zones, and wound vac to the right foot. I also recommend continued wound VAC changes to the right foot that extends to the medial ankle every 3 days. It is noted that this foot site has some bridging epithelialization noted to the center and is now broken into 2 regions; the wound VAC was bridged over the site. No infection is noted to any of the aformentioned lower extremity debridement sites. The ulcer sites have improved quality with granulation tissue. He has completed a 6 weeks of IV antibiotic of Unasyn. I recommend he avoids laying directly on his wounds to reduce pressure, and I was concerned about his perfusion to his limbs. He had an arterial Doppler scheduled with Dr. Morgan's staff on August 02, 2018 and overall perfusion was confirmed; additional intervention or workup was not re commended. It is also noted that he did have venous Doppler performed with reflux evaluation. He did not have evidence of deep venous thrombosis or venous insufficiency at that time; the vessels were compressible. To continue with nutritional supplementation optimize healing; I recommend Juan. I recommend he sustained from smoking and alcohol activities to optimize healing as well. His workup for vasculitis and underlying autoimmune disorder is also pending. A punch biopsy was sent during his last surgical intervention on June 10 and this demonstrated inflammatory changes without malignancy. He had initial screening labs and so far he has a negative RA titer, HL of the 27, KEVIN, anti-CCP, and rheumatoid factor. Several his antibody screenings were not reportable. I have communicated this workup with his current managing physician at [facility], Dr. Perdomo, to see if additional recommendations or workup is indicated. He is home now. I will further forward this information along to his primary care physician, Dr. Sparks. Hyperbaric oxygen therapy was recommended and it is noted his ejection fraction was most recently 50%. He refuses at this time. Dr. Gilbert continues to manage his bilateral knee ulcers including debridements and traditional wound care plan. I recommend same-day surgery versa jet debridement with application of advanced wound care products including epi cord, amnio fill, and amnio fix product line derived from amniotic cord cells and umbilical cord cells. The benefits, indications, planned procedure, possible benefits risks and anticipated healing time is were discussed. He understands this is a staged procedure and often serial applications are required. He obtained his clearance from Dr. Sparks and an additional Dr. Ponce cardiac evaluation preoperative was recommended. I reviewed the urgency with healing these wounds in a timely manner and encouraged him to reconsider this. He refuses at this time. I answered all of his questions. Additional amputation of the right foot is not planned due to his fairly nonambulatory status. Smoking cessation was discussed in detail again today and compliance is imperative to optimize healing of surgical success. I recommend further follow-up at the wound care center 1 week with me, or call sooner if he has any questions. Compliance at this advanced wound care center was reviewed. He understands additional palliative care programs are an option if he does not wish to proceed with advanced wound care opportunities that has been recommended.
--- NOTE | 2018-10-19 13:28 | PCM.WC.PN ---
(1) Ulcer of left lower extremity with fat layer exposed Status: Chronic Current Visit: Yes Code(s): L97.922 - Non-pressure chronic ulcer of unspecified part of left lower leg with fat layer exposed (2) Ulcer of right lower extremity with fat layer exposed Status: Chronic Current Visit: Yes Code(s): L97.912 - Non-pressure chronic ulcer of unspecified part of right lower leg with fat layer exposed (3) Type 2 diabetes mellitus with diabetic polyneuropathy Status: Chronic Current Visit: Yes Code(s): E11.42 - Type 2 diabetes mellitus with diabetic polyneuropathy Type of Wound Chief Complaint: right and left Leg ulcers and right foot ulcer History of Wound: Mr. Arguello is a 63-year-old male with multiple comorbidities follows up for delayed healing ulcers to the right foot as well as bilateral legs. It is noted he previously had widespread debridements and fasciotomies performed to bilateral lower extremities secondary to life-threatening and limb threatening infection; this was previously performed at [facility]. He continues to follow with Dr. Gilbert for her knee ulcers, and I saw him today for his other ulcer sites. He has been applying Santyl to both the wounds, Aquacel to leg ulcers, and wound VAC to right foot defect with quality and size reduction improvement. He denies chills, fever or otherwise feeling of unwell. He presents today with his . He refuses advanced wound care product application. He refuses hyperbaric oxygen therapy treatment. He continues to refuse surgical intervention. Progress of Wound: Left knee ulcer is improved. Right knee ulcer is stable. - Physical Exam Vital Signs Temp Pulse Resp BP 94.4 F L 87 16 126/74 H 10/19/18 09:18 10/19/18 09:18 10/19/18 09:18 10/19/18 09:18 General: Alert, Oriented x3, Cooperative, No apparent distress HEENT: Atraumatic Oral: Moist Mucosa Neck: Supple Lungs: Normal air movement Abdomen: Non Tender Extremities: No cyanosis Skin: Ulcer/ Wound Wound Measurements and Assessment WC - Nurse 1 - General Ulcer Measurement Start: 09/28/18 09:15 Freq: Status: Active Protocol: Activity Type Activity Date Activity User E-Sign Co-Sign Detail Recorded Client Recorded Date Recorded By Document 10/19/18 09:18 [facility] [id number] 10/19/18 09:37 BMF 10/19/18 09:18 Wound Center Nurse 1 [Ulcer Assessment] #10 right heel -Combined with other wound No -Current Size (cm) - Length 1 -Current Size (cm) - Width 0.7 -Current Size (cm) - Depth 0.1 -Total Square Cm 0.7 -Photo Taken No -Epithelialization None Present -Tunneling No -Undermining/Tunneling No -Circular Undermining No -Exudate Amt Small (1-33%) -Exudate Type Serosanguineous -Wound Margin Distinct, Outline Attached -Granulation Amt Small (1-33%) -Granulation Quality Chical -Slough/Fibrin Yes -Necrosis Amt Large (67-100%) -Necrotic Tissue Type Adherent Slough -Texture (Lisa-wound Skin Appearance) Scarring -Moisture (Lisa-wound Skin Appearance Maceration ) -Color (Lisa-wound Skin Appearance) Palor -Temperature (Lisa-wound Skin No Abnormality Appearance) (Pt Warm) -Tenderness on Palpation (Lisa-wound No Skin Appearance) -Ulcer Cleansing Wound Cleanser -Foul Odor after Cleansing No -Anesthetic Used 4% Lidocaine Solution 9.L knee -Combined with other wound No -Current Size (cm) - Length 0.1 -Current Size (cm) - Width 0.1 -Current Size (cm) - Depth 0.1 -Total Square Cm 0.01 -Photo Taken No -Epithelialization None Present -Tunneling No -Undermining/Tunneling No -Circular Undermining No -Exudate Amt Small (1-33%) -Exudate Type Serous -Wound Margin Distinct, Outline Attached -Granulation Amt None Present (0 %) -Slough/Fibrin Yes -Necrosis Amt Large (67-100%) -Necrotic Tissue Type Eschar -Texture (Lisa-wound Skin Appearance) Scarring -Moisture (Lisa-wound Skin Appearance Dry/Scaly ) -Color (Lisa-wound Skin Appearance) Assessed -Temperature (Lisa-wound Skin No Abnormality Appearance) (Pt Warm) -Tenderness on Palpation (Lisa-wound No Skin Appearance) -Ulcer Cleansing Wound Cleanser -Foul Odor after Cleansing No -Anesthetic Used 4% Lidocaine Solution #8 r Knee -Combined with other wound No -Current Size (cm) - Length 0.9 -Current Size (cm) - Width 1.2 -Current Size (cm) - Depth 0.3 -Total Square Cm 1.08 -Photo Taken No -Epithelialization None Present -Tunneling No -Undermining/Tunneling Yes -Undermining/Tunneling Starts (O' 12 clock) -Undermining/Tunneling Ends (O'clock) 12 -Maximum Distance (cm) 0.2 -Circular Undermining Yes -Exudate Amt Small (1-33%) -Exudate Type Serous -Wound Margin Distinct, Outline Attached -Granulation Amt Small (1-33%) -Granulation Quality Chical -Slough/Fibrin Yes -Necrosis Amt Large (67-100%) -Necrotic Tissue Type Adherent Slough -Texture (Lisa-wound Skin Appearance) Scarring -Moisture (Lisa-wound Skin Appearance Maceration ) Dry/Scaly -Color (Lisa-wound Skin Appearance) Palor -Temperature (Lisa-wound Skin No Abnormality Appearance) (Pt Warm) -Tenderness on Palpation (Lisa-wound No Skin Appearance) -Ulcer Cleansing Wound Cleanser -Foul Odor after Cleansing No -Anesthetic Used 4% Lidocaine Solution #6 L Post -Combined with other wound No -Current Size (cm) - Length 22.6 -Current Size (cm) - Width 2 -Current Size (cm) - Depth 0.1 -Total Square Cm 45.2 -Photo Taken No -Tunneling No -Undermining/Tunneling No -Circular Undermining No -Exudate Amt Medium (34-66%) -Exudate Type Serosanguineous -Wound Margin Distinct, Outline Attached -Granulation Amt Large (67-100%) -Granulation Quality Red -Slough/Fibrin Yes -Necrosis Amt Small (1-33%) -Necrotic Tissue Type Adherent Slough -Texture (Lisa-wound Skin Appearance) Scarring -Moisture (Lisa-wound Skin Appearance Dry/Scaly ) -Color (Lisa-wound Skin Appearance) Assessed -Temperature (Lisa-wound Skin No Abnormality Appearance) (Pt Warm) -Tenderness on Palpation (Lisa-wound No Skin Appearance) -Ulcer Cleansing Wound Cleanser -Foul Odor after Cleansing No -Anesthetic Used 4% Lidocaine Solution #5 R Lat LE -Combined with other wound No -Current Size (cm) - Length 2 -Current Size (cm) - Width 1.5 -Current Size (cm) - Depth 0.1 -Total Square Cm 3.0 -Photo Taken No -Epithelialization Small 1-33% -Tunneling No -Undermining/Tunneling No -Circular Undermining No -Exudate Amt Small (1-33%) -Exudate Type Serosanguineous -Wound Margin Distinct, Outline Attached -Granulation Amt Large (67-100%) -Granulation Quality Red -Slough/Fibrin Yes -Necrosis Amt Small (1-33%) -Necrotic Tissue Type Adherent Slough -Texture (Lisa-wound Skin Appearance) Scarring -Moisture (Lisa-wound Skin Appearance Dry/Scaly ) -Color (Lisa-wound Skin Appearance) Assessed -Temperature (Lisa-wound Skin No Abnormality Appearance) (Pt Warm) -Tenderness on Palpation (Lisa-wound No Skin Appearance) -Ulcer Cleansing Wound Cleanser -Foul Odor after Cleansing No -Anesthetic Used 4% Lidocaine Solution #4 R post LE -Combined with other wound No -Current Size (cm) - Length 1 -Current Size (cm) - Width 0.7 -Current Size (cm) - Depth 0.1 -Total Square Cm 0.7 -Photo Taken No -Epithelialization None Present -Tunneling No -Undermining/Tunneling No -Circular Undermining No -Exudate Amt Small (1-33%) -Exudate Type Serosanguineous -Wound Margin Distinct, Outline Attached -Granulation Amt None Present (0 %) -Slough/Fibrin Yes -Necrosis Amt Large (67-100%) -Necrotic Tissue Type Adherent Slough -Texture (Lisa-wound Skin Appearance) Scarring -Moisture (Lisa-wound Skin Appearance Dry/Scaly ) -Color (Lisa-wound Skin Appearance) Assessed -Temperature (Lisa-wound Skin No Abnormality Appearance) (Pt Warm) -Tenderness on Palpation (Lisa-wound No Skin Appearance) -Ulcer Cleansing Wound Cleanser -Foul Odor after Cleansing No -Anesthetic Used 4% Lidocaine Solution #3 R Med LE -Combined with other wound No -Current Size (cm) - Length 2.4 -Current Size (cm) - Width 0.7 -Current Size (cm) - Depth 0.6 -Total Square Cm 1.68 -Photo Taken No -Epithelialization None Present -Tunneling No -Undermining/Tunneling No -Circular Undermining No -Exudate Amt Medium (34-66%) -Exudate Type Serosanguineous -Wound Margin Distinct, Outline Attached -Granulation Amt Small (1-33%) -Granulation Quality Red -Slough/Fibrin Yes -Necrosis Amt Large (67-100%) -Necrotic Tissue Type Adherent Slough -Structure Exposed Tendon -Texture (Lisa-wound Skin Appearance) Scarring -Moisture (Lisa-wound Skin Appearance Dry/Scaly ) -Color (Lisa-wound Skin Appearance) Assessed -Temperature (Lisa-wound Skin No Abnormality Appearance) (Pt Warm) -Tenderness on Palpation (Lisa-wound No Skin Appearance) -Ulcer Cleansing Wound Cleanser -Foul Odor after Cleansing No -Anesthetic Used 4% Lidocaine Solution #2 R [place] Cluster -Combined with other wound No -Current Size (cm) - Length 11.8 -Current Size (cm) - Width 4 -Current Size (cm) - Depth 0.1 -Total Square Cm 47.2 -Photo Taken No -Epithelialization Small 1-33% -Tunneling No -Undermining/Tunneling No -Circular Undermining No -Exudate Amt Medium (34-66%) -Exudate Type Serosanguineous -Wound Margin Distinct, Outline Attached -Granulation Amt Large (67-100%) -Granulation Quality Red -Slough/Fibrin Yes -Necrosis Amt Small (1-33%) -Necrotic Tissue Type Adherent Slough -Texture (Lisa-wound Skin Appearance) Scarring -Moisture (Lisa-wound Skin Appearance Dry/Scaly ) -Color (Lisa-wound Skin Appearance) Assessed -Temperature (Lisa-wound Skin No Abnormality Appearance) (Pt Warm) -Tenderness on Palpation (Lisa-wound No Skin Appearance) -Ulcer Cleansing Wound Cleanser -Foul Odor after Cleansing No -Anesthetic Used 4% Lidocaine Solution #1 R 2nd toe amp/Arch/ Med Ankle -Combined with other wound No -Current Size (cm) - Length 26 -Current Size (cm) - Width 2.6 -Current Size (cm) - Depth 1.4 -Total Square Cm 67.6 -Photo Taken No -Epithelialization Small 1-33% -Tunneling No -Undermining/Tunneling No -Circular Undermining No -Exudate Amt Small (1-33%) -Exudate Type Serosanguineous -Wound Margin Distinct, Outline Attached -Granulation Amt Large (67-100%) -Granulation Quality Red -Slough/Fibrin Yes -Necrosis Amt Small (1-33%) -Necrotic Tissue Type Adherent Slough -Texture (Lisa-wound Skin Appearance) Scarring -Moisture (Lisa-wound Skin Appearance Maceration ) -Color (Lisa-wound Skin Appearance) Palor -Temperature (Lisa-wound Skin No Abnormality Appearance) (Pt Warm) -Tenderness on Palpation (Lisa-wound No Skin Appearance) -Ulcer Cleansing Wound Cleanser -Foul Odor after Cleansing No -Anesthetic Used 4% Lidocaine Solution [Edema Assessment] -Lower Limb Edema Present No -Right Calf (cm) 34 -Right Ankle (cm) 21 -Left Calf (cm) 32.5 -Left Ankle (cm) 20.3 WC - Nurse 2 - General Ulcer CM Notes Start: 09/28/18 09:15 Freq: Status: Active Protocol: Activity Type Activity Date Activity User E-Sign Co-Sign Detail Recorded Client Recorded Date Recorded By Document 10/19/18 09:58 TM [id number] 10/19/18 10:15 TM Document 10/19/18 10:28 MW [id number] 10/19/18 10:31 MW 10/19/18 10/19/18 09:58 10:28 Wound Center Nurse 2 [Procedure/Treatment] #10 right heel -Time 10:10 -Correct Patient Yes -Correct Side, Site, Position Yes -Correct Procedure Yes -Procedure Performed Yes -Type of Procedure Debridement -Clinical Debridement Subcutaneous -Post Debridement Size (cm) - Length 1.1 -Post Debridement Size (cm) - Width 0.8 -Post Debridement Size (cm) - Depth 0.1 -Total Square Cm 0.88 -Wound/Ulcer Outcome Not Healed -Ulcer Cleansing Rinsed/ Irrigated with Saline -Foul Odor after Cleansing No -Bioengineered Tissue No -Topical Lidocaine (%) 4 -Bleeding Controlled with Pressure -Treatment Response Procedure Tolerated Well 9.L knee -Time 10:29 -Correct Patient Yes -Correct Side, Site, Position Yes -Correct Procedure Yes -Procedure Performed Yes -Type of Procedure Debridement -Clinical Debridement Selective -Post Debridement Size (cm) - Length 0.1 -Post Debridement Size (cm) - Width 0.1 -Post Debridement Size (cm) - Depth 0.1 -Total Square Cm 0.01 -Wound/Ulcer Outcome Not Healed -Ulcer Cleansing Rinsed/ Irrigated with Saline -Foul Odor after Cleansing No -Bioengineered Tissue No -Bleeding Controlled with Pressure -Treatment Response Procedure Tolerated Well #8 r Knee -Time 10:29 -Correct Patient Yes -Correct Side, Site, Position Yes -Correct Procedure Yes -Procedure Performed Yes -Type of Procedure Debridement -Clinical Debridement Subcutaneous -Post Debridement Size (cm) - Length 1.0 -Post Debridement Size (cm) - Width 1.0 -Post Debridement Size (cm) - Depth 0.2 -Total Square Cm 1.00 -Wound/Ulcer Outcome Not Healed -Ulcer Cleansing Rinsed/ Irrigated with Saline -Foul Odor after Cleansing No -Bioengineered Tissue No -Bleeding Controlled with Pressure -Treatment Response Procedure Tolerated Well #6 L Post -Time 10:11 -Correct Patient Yes -Correct Side, Site, Position Yes -Correct Procedure Yes -Procedure Performed Yes -Type of Procedure Debridement -Clinical Debridement Subcutaneous -Post Debridement Size (cm) - Length 22.7 -Post Debridement Size (cm) - Width 2.1 -Post Debridement Size (cm) - Depth 0.1 -Total Square Cm 47.67 -Wound/Ulcer Outcome Not Healed -Ulcer Cleansing Rinsed/ Irrigated with Saline -Foul Odor after Cleansing No -Bioengineered Tissue No -Topical Lidocaine (%) 4 -Bleeding Controlled with Pressure -Treatment Response Procedure Tolerated Well #5 R Lat LE -Time 10:11 -Correct Patient Yes -Correct Side, Site, Position Yes -Correct Procedure Yes -Procedure Performed Yes -Type of Procedure Debridement -Clinical Debridement Subcutaneous -Post Debridement Size (cm) - Length 2.1 -Post Debridement Size (cm) - Width 1.6 -Post Debridement Size (cm) - Depth 0.1 -Total Square Cm 3.36 -Wound/Ulcer Outcome Not Healed -Ulcer Cleansing Rinsed/ Irrigated with Saline -Foul Odor after Cleansing No -Bioengineered Tissue No -Topical Lidocaine (%) 4 -Bleeding Controlled with Pressure -Treatment Response Procedure Tolerated Well #4 R post LE -Time 10:12 -Correct Patient Yes -Correct Side, Site, Position Yes -Correct Procedure Yes -Procedure Performed Yes -Type of Procedure Debridement -Clinical Debridement Subcutaneous -Post Debridement Size (cm) - Length 1.1 -Post Debridement Size (cm) - Width 0.8 -Post Debridement Size (cm) - Depth 0.1 -Total Square Cm 0.88 -Wound/Ulcer Outcome Not Healed -Ulcer Cleansing Rinsed/ Irrigated with Saline -Foul Odor after Cleansing No -Bioengineered Tissue No -Topical Lidocaine (%) 4 -Bleeding Controlled with Pressure -Treatment Response Procedure Tolerated Well #3 R Med LE -Time 10:12 -Correct Patient Yes -Correct Side, Site, Position Yes -Correct Procedure Yes -Procedure Performed Yes -Type of Procedure Debridement -Clinical Debridement Subcutaneous -Post Debridement Size (cm) - Length 2.5 -Post Debridement Size (cm) - Width 0.8 -Post Debridement Size (cm) - Depth 0.6 -Total Square Cm 2.00 -Wound/Ulcer Outcome Not Healed -Ulcer Cleansing Rinsed/ Irrigated with Saline -Foul Odor after Cleansing No -Bioengineered Tissue No -Topical Lidocaine (%) 4 -Bleeding Controlled with Pressure -Treatment Response Procedure Tolerated Well #2 R [place]rell[place] Cluster -Time 10:12 -Correct Patient Yes -Correct Side, Site, Position Yes -Correct Procedure Yes -Procedure Performed Yes -Type of Procedure Debridement -Clinical Debridement Subcutaneous -Post Debridement Size (cm) - Length 11.9 -Post Debridement Size (cm) - Width 4.1 -Post Debridement Size (cm) - Depth 0.1 -Total Square Cm 48.79 -Wound/Ulcer Outcome Not Healed -Ulcer Cleansing Rinsed/ Irrigated with Saline -Foul Odor after Cleansing No -Bioengineered Tissue No -Topical Lidocaine (%) 4 -Bleeding Controlled with Pressure -Treatment Response Procedure Tolerated Well #1 R 2nd toe amp/Arch/ Med Ankle -Time 10:13 -Correct Patient Yes -Correct Side, Site, Position Yes -Correct Procedure Yes -Procedure Performed Yes -Type of Procedure Debridement -Clinical Debridement Subcutaneous -Post Debridement Size (cm) - Length 26.1 -Post Debridement Size (cm) - Width 2.7 -Post Debridement Size (cm) - Depth 1.4 -Total Square Cm 70.47 -Wound/Ulcer Outcome Not Healed -Ulcer Cleansing Rinsed/ Irrigated with Saline -Bioengineered Tissue No -Topical Lidocaine (%) 4 -Bleeding Controlled with Pressure -Treatment Response Procedure Tolerated Well [See Physician Procedure note for Specifics] Pain Scale: 0-10 Numeric [Pain] -Is Patient Pain Free? Yes Musculoskeletal: No Muscle Wasting Neurological: Cranial nerves II-XII grossly intact Psych/Mental Status: Normal Affect Debridement Note Post-Debridement Measurements/Treatment WC - Nurse 2 - General Ulcer CM Notes Start: 09/28/18 09:15 Freq: Status: Active Protocol: Activity Type Activity Date Activity User E-Sign Co-Sign Detail Recorded Client Recorded Date Recorded By Document 09/28/18 10:06 TM [id number] 09/28/18 10:15 TM Document 09/28/18 10:41 MW [id number] 09/28/18 10:51 MW Document 10/05/18 10:10 CS [id number] 10/05/18 10:11 CS Document 10/05/18 15:32 TM [id number] 10/05/18 15:36 TM Document 10/12/18 09:39 TM [id number] 10/12/18 09:52 TM Document 10/12/18 10:02 MW [id number] 10/12/18 10:07 MW Document 10/19/18 09:58 TM [id number] 10/19/18 10:15 TM Document 10/19/18 10:28 MW [id number] 10/19/18 10:31 MW 09/28/18 09/28/18 10/05/18 10:06 10:41 10:10 Wound Center Nurse 2 #10 right heel -Time 10:13 -Correct Patient Yes -Correct Side, Site, Position Yes -Correct Procedure Yes -Procedure Performed Yes -Type of Procedure Debridement -Clinical Debridement Subcutaneous -Post Debridement Size (cm) - Length 1.4 -Post Debridement Size (cm) - Width 1.0 -Post Debridement Size (cm) - Depth 0.1 -Total Square Cm 1.40 -Wound/Ulcer Outcome Not Healed -Ulcer Cleansing Rinsed/ Irrigated with Saline -Foul Odor after Cleansing No -Bioengineered Tissue No -Topical Lidocaine (%) 4 -Bleeding Controlled with Pressure -Treatment Response Procedure Tolerated Well 9.L knee -Time 10:42 10:10 -Correct Patient Yes Yes -Correct Side, Site, Position Yes Yes -Correct Procedure Yes Yes -Procedure Performed Yes Yes -Type of Procedure Debridement Debridement -Clinical Debridement Subcutaneous Subcutaneous -Post Debridement Size (cm) - Length 0.2 0.4 -Post Debridement Size (cm) - Width 0.6 0.5 -Post Debridement Size (cm) - Depth 0.1 0.2 -Total Square Cm 0.12 0.20 -Wound/Ulcer Outcome Not Healed Not Healed -Ulcer Cleansing Rinsed/ Rinsed/ Irrigated with Irrigated with Saline Saline -Foul Odor after Cleansing No No -Bioengineered Tissue No No -Bleeding Controlled with Pressure NA -Treatment Response Procedure Procedure Tolerated Well Tolerated Well #8 r Knee -Time 10:42 10:10 -Correct Patient Yes Yes -Correct Side, Site, Position Yes Yes -Correct Procedure Yes Yes -Procedure Performed Yes Yes -Type of Procedure Debridement Debridement -Clinical Debridement Subcutaneous Subcutaneous -Post Debridement Size (cm) - Length 1.2 1 -Post Debridement Size (cm) - Width 1.7 1.2 -Post Debridement Size (cm) - Depth 0.3 0.2 -Total Square Cm 2.04 1.2 -Wound/Ulcer Outcome Not Healed Not Healed -Ulcer Cleansing Rinsed/ Not Cleansed Irrigated with Saline -Foul Odor after Cleansing No No -Bioengineered Tissue No No -Bleeding Controlled with Pressure NA -Treatment Response Procedure Procedure Tolerated Well Tolerated Well #6 L Post -Time 10:09 -Correct Patient Yes -Correct Side, Site, Position Yes -Correct Procedure Yes -Procedure Performed Yes -Type of Procedure Debridement -Clinical Debridement Muscle -Post Debridement Size (cm) - Length 21.1 -Post Debridement Size (cm) - Width 2.1 -Post Debridement Size (cm) - Depth 0.5 -Total Square Cm 44.31 -Wound/Ulcer Outcome Not Healed -Ulcer Cleansing Rinsed/ Irrigated with Saline -Foul Odor after Cleansing No -Bioengineered Tissue No -Topical Lidocaine (%) 4 -Bleeding Controlled with Pressure -Treatment Response Procedure Tolerated Well #5 R Lat LE -Time 10:09 -Correct Patient Yes -Correct Side, Site, Position Yes -Correct Procedure Yes -Procedure Performed Yes -Type of Procedure Debridement -Clinical Debridement Subcutaneous -Post Debridement Size (cm) - Length 3.2 -Post Debridement Size (cm) - Width 1.8 -Post Debridement Size (cm) - Depth 0.1 -Total Square Cm 5.76 -Wound/Ulcer Outcome Not Healed -Ulcer Cleansing Rinsed/ Irrigated with Saline -Foul Odor after Cleansing No -Bioengineered Tissue No -Topical Lidocaine (%) 4 -Bleeding Controlled with Pressure -Treatment Response Procedure Tolerated Well #4 R post LE -Time 10:10 -Correct Patient Yes -Correct Side, Site, Position Yes -Correct Procedure Yes -Procedure Performed Yes -Type of Procedure Debridement -Clinical Debridement Subcutaneous -Post Debridement Size (cm) - Length 1.3 -Post Debridement Size (cm) - Width 1.1 -Post Debridement Size (cm) - Depth 0.1 -Total Square Cm 1.43 -Wound/Ulcer Outcome Not Healed -Ulcer Cleansing Rinsed/ Irrigated with Saline -Foul Odor after Cleansing No -Bioengineered Tissue No -Topical Lidocaine (%) 4 -Bleeding Controlled with Pressure -Treatment Response Procedure Tolerated Well #3 R Med LE -Time 10:10 -Correct Patient Yes -Correct Side, Site, Position Yes -Correct Procedure Yes -Procedure Performed Yes -Type of Procedure Debridement -Clinical Debridement Subcutaneous -Post Debridement Size (cm) - Length 3.6 -Post Debridement Size (cm) - Width 1.6 -Post Debridement Size (cm) - Depth 0.3 -Total Square Cm 5.76 -Wound/Ulcer Outcome Not Healed -Ulcer Cleansing Rinsed/ Irrigated with Saline -Foul Odor after Cleansing No -Bioengineered Tissue No -Topical Lidocaine (%) 4 -Bleeding Controlled with Pressure -Treatment Response Procedure Tolerated Well #2 R [place] Cluster -Time 10:11 -Correct Patient Yes -Correct Side, Site, Position Yes -Correct Procedure Yes -Procedure Performed Yes -Type of Procedure Debridement -Clinical Debridement Subcutaneous -Post Debridement Size (cm) - Length 15.6 -Post Debridement Size (cm) - Width 3.9 -Post Debridement Size (cm) - Depth 0.1 -Total Square Cm 60.84 -Wound/Ulcer Outcome Not Healed -Ulcer Cleansing Rinsed/ Irrigated with Saline -Foul Odor after Cleansing No -Bioengineered Tissue No -Topical Lidocaine (%) 4 -Bleeding Controlled with Pressure -Treatment Response Procedure Tolerated Well #1 R 2nd toe amp/Arch/ Med Ankle -Time 10:11 -Correct Patient Yes -Correct Side, Site, Position Yes -Correct Procedure Yes -Procedure Performed Yes -Type of Procedure Debridement -Clinical Debridement Subcutaneous -Post Debridement Size (cm) - Length 29.1 -Post Debridement Size (cm) - Width 2.9 -Post Debridement Size (cm) - Depth 1.3 -Total Square Cm 84.39 -Wound/Ulcer Outcome Not Healed -Ulcer Cleansing Rinsed/ Irrigated with Saline -Foul Odor after Cleansing No -Bioengineered Tissue No -Topical Lidocaine (%) 4 -Bleeding Controlled with Pressure -Treatment Response Procedure Tolerated Well Pain Scale: 0-10 Numeric Is Patient Pain Free? Yes 10/05/18 10/12/18 10/12/18 15:32 09:39 10:02 Wound Center Nurse 2 #10 right heel -Time 15:32 09:49 -Correct Patient Yes Yes -Correct Side, Site, Position Yes Yes -Correct Procedure Yes Yes -Procedure Performed Yes Yes -Type of Procedure Debridement Debridement -Clinical Debridement Subcutaneous Subcutaneous -Post Debridement Size (cm) - Length 0.6 1.0 -Post Debridement Size (cm) - Width 1.0 0.8 -Post Debridement Size (cm) - Depth 0.2 0.2 -Total Square Cm 0.60 0.80 -Wound/Ulcer Outcome Not Healed Not Healed -Ulcer Cleansing Rinsed/ Rinsed/ Irrigated with Irrigated with Saline Saline -Foul Odor after Cleansing No No -Bioengineered Tissue No No -Topical Lidocaine (%) 4 4 -Bleeding Controlled with Pressure Pressure -Treatment Response Procedure Procedure Tolerated Well Tolerated Well 9.L knee -Time 10:03 -Correct Patient Yes -Correct Side, Site, Position Yes -Correct Procedure Yes -Procedure Performed Yes -Type of Procedure Debridement -Clinical Debridement Subcutaneous -Post Debridement Size (cm) - Length 0.2 -Post Debridement Size (cm) - Width 0.4 -Post Debridement Size (cm) - Depth 0.2 -Total Square Cm 0.08 -Wound/Ulcer Outcome Not Healed -Ulcer Cleansing Rinsed/ Irrigated with Saline -Foul Odor after Cleansing No -Bioengineered Tissue No -Bleeding Controlled with Pressure -Treatment Response Procedure Tolerated Well #8 r Knee -Time 10:03 -Correct Patient Yes -Correct Side, Site, Position Yes -Correct Procedure Yes -Procedure Performed Yes -Type of Procedure Debridement -Clinical Debridement Subcutaneous -Post Debridement Size (cm) - Length 1.1 -Post Debridement Size (cm) - Width 1.1 -Post Debridement Size (cm) - Depth 0.3 -Total Square Cm 1.21 -Wound/Ulcer Outcome Not Healed -Ulcer Cleansing Rinsed/ Irrigated with Saline -Foul Odor after Cleansing No -Bioengineered Tissue No -Bleeding Controlled with Pressure -Treatment Response Procedure Tolerated Well #6 L Post -Time 15:32 09:49 -Correct Patient Yes Yes -Correct Side, Site, Position Yes Yes -Correct Procedure Yes Yes -Procedure Performed Yes Yes -Type of Procedure Debridement Debridement -Clinical Debridement Subcutaneous Subcutaneous -Post Debridement Size (cm) - Length 14.3 21.6 -Post Debridement Size (cm) - Width 2.7 2.6 -Post Debridement Size (cm) - Depth 0.2 0.2 -Total Square Cm 38.61 56.16 -Wound/Ulcer Outcome Not Healed Not Healed -Ulcer Cleansing Rinsed/ Rinsed/ Irrigated with Irrigated with Saline Saline -Foul Odor after Cleansing No No -Bioengineered Tissue No No -Topical Lidocaine (%) 4 4 -Bleeding Controlled with Pressure Pressure -Treatment Response Procedure Procedure Tolerated Well Tolerated Well #5 R Lat LE -Time 15:33 09:50 -Correct Patient Yes Yes -Correct Side, Site, Position Yes Yes -Correct Procedure Yes Yes -Procedure Performed Yes Yes -Type of Procedure Debridement Debridement -Clinical Debridement Subcutaneous Subcutaneous -Post Debridement Size (cm) - Length 2.6 2.5 -Post Debridement Size (cm) - Width 2.1 2.0 -Post Debridement Size (cm) - Depth 0.2 0.2 -Total Square Cm 5.46 5.00 -Wound/Ulcer Outcome Not Healed Not Healed -Ulcer Cleansing Rinsed/ Rinsed/ Irrigated with Irrigated with Saline Saline -Foul Odor after Cleansing No No -Bioengineered Tissue No No -Topical Lidocaine (%) 4 -Bleeding Controlled with Pressure Pressure -Treatment Response Procedure Procedure Tolerated Well Tolerated Well #4 R post LE -Time 15:33 09:50 -Correct Patient Yes Yes -Correct Side, Site, Position Yes Yes -Correct Procedure Yes Yes -Procedure Performed Yes Yes -Type of Procedure Debridement Debridement -Clinical Debridement Subcutaneous Subcutaneous -Post Debridement Size (cm) - Length 3.3 1.1 -Post Debridement Size (cm) - Width 1.1 1.0 -Post Debridement Size (cm) - Depth 0.3 0.2 -Total Square Cm 3.63 1.10 -Wound/Ulcer Outcome Not Healed Not Healed -Ulcer Cleansing Rinsed/ Rinsed/ Irrigated with Irrigated with Saline Saline -Foul Odor after Cleansing No No -Bioengineered Tissue No No -Topical Lidocaine (%) 4 4 -Bleeding Controlled with Pressure Pressure -Treatment Response Procedure Procedure Tolerated Well Tolerated Well #3 R Med LE -Time 15:34 09:51 -Correct Patient Yes Yes -Correct Side, Site, Position Yes Yes -Correct Procedure Yes Yes -Procedure Performed Yes Yes -Type of Procedure Debridement Debridement -Clinical Debridement Subcutaneous Subcutaneous -Post Debridement Size (cm) - Length 1.2 2.9 -Post Debridement Size (cm) - Width 1.0 1.1 -Post Debridement Size (cm) - Depth 0.2 0.3 -Total Square Cm 1.20 3.19 -Wound/Ulcer Outcome Not Healed Not Healed -Ulcer Cleansing Rinsed/ Rinsed/ Irrigated with Irrigated with Saline Saline -Foul Odor after Cleansing No No -Bioengineered Tissue No No -Topical Lidocaine (%) 4 4 -Bleeding Controlled with Pressure Pressure -Treatment Response Procedure Procedure Tolerated Well Tolerated Well #2 R [place] Cluster -Time 15:34 09:51 -Correct Patient Yes Yes -Correct Side, Site, Position Yes Yes -Correct Procedure Yes Yes -Procedure Performed Yes Yes -Type of Procedure Debridement Debridement -Clinical Debridement Subcutaneous Subcutaneous -Post Debridement Size (cm) - Length 22.1 22.0 -Post Debridement Size (cm) - Width 3.8 3.6 -Post Debridement Size (cm) - Depth 0.2 0.1 -Total Square Cm 83.98 79.20 -Wound/Ulcer Outcome Not Healed Not Healed -Ulcer Cleansing Rinsed/ Rinsed/ Irrigated with Irrigated with Saline Saline -Foul Odor after Cleansing No No -Bioengineered Tissue No No -Topical Lidocaine (%) 4 4 -Bleeding Controlled with Pressure Pressure -Treatment Response Procedure Procedure Tolerated Well Tolerated Well #1 R 2nd toe amp/Arch/ Med Ankle -Time 15:35 09:51 -Correct Patient Yes Yes -Correct Side, Site, Position Yes Yes -Correct Procedure Yes Yes -Procedure Performed Yes Yes -Type of Procedure Debridement Debridement -Clinical Debridement Subcutaneous Subcutaneous -Post Debridement Size (cm) - Length 29.2 29.6 -Post Debridement Size (cm) - Width 3.0 3.4 -Post Debridement Size (cm) - Depth 1.3 1.4 -Total Square Cm 87.60 100.64 -Wound/Ulcer Outcome Not Healed Not Healed -Ulcer Cleansing Rinsed/ Rinsed/ Irrigated with Irrigated with Saline Saline -Foul Odor after Cleansing No No -Bioengineered Tissue No No -Topical Lidocaine (%) 4 4 -Bleeding Controlled with Pressure Pressure -Treatment Response Procedure Procedure Tolerated Well Tolerated Well Pain Scale: 0-10 Numeric Is Patient Pain Free? Yes Yes 10/19/18 10/19/18 09:58 10:28 Wound Center Nurse 2 #10 right heel -Time 10:10 -Correct Patient Yes -Correct Side, Site, Position Yes -Correct Procedure Yes -Procedure Performed Yes -Type of Procedure Debridement -Clinical Debridement Subcutaneous -Post Debridement Size (cm) - Length 1.1 -Post Debridement Size (cm) - Width 0.8 -Post Debridement Size (cm) - Depth 0.1 -Total Square Cm 0.88 -Wound/Ulcer Outcome Not Healed -Ulcer Cleansing Rinsed/ Irrigated with Saline -Foul Odor after Cleansing No -Bioengineered Tissue No -Topical Lidocaine (%) 4 -Bleeding Controlled with Pressure -Treatment Response Procedure Tolerated Well 9.L knee -Time 10:29 -Correct Patient Yes -Correct Side, Site, Position Yes -Correct Procedure Yes -Procedure Performed Yes -Type of Procedure Debridement -Clinical Debridement Selective -Post Debridement Size (cm) - Length 0.1 -Post Debridement Size (cm) - Width 0.1 -Post Debridement Size (cm) - Depth 0.1 -Total Square Cm 0.01 -Wound/Ulcer Outcome Not Healed -Ulcer Cleansing Rinsed/ Irrigated with Saline -Foul Odor after Cleansing No -Bioengineered Tissue No -Bleeding Controlled with Pressure -Treatment Response Procedure Tolerated Well #8 r Knee -Time 10:29 -Correct Patient Yes -Correct Side, Site, Position Yes -Correct Procedure Yes -Procedure Performed Yes -Type of Procedure Debridement -Clinical Debridement Subcutaneous -Post Debridement Size (cm) - Length 1.0 -Post Debridement Size (cm) - Width 1.0 -Post Debridement Size (cm) - Depth 0.2 -Total Square Cm 1.00 -Wound/Ulcer Outcome Not Healed -Ulcer Cleansing Rinsed/ Irrigated with Saline -Foul Odor after Cleansing No -Bioengineered Tissue No -Bleeding Controlled with Pressure -Treatment Response Procedure Tolerated Well #6 L Post -Time 10:11 -Correct Patient Yes -Correct Side, Site, Position Yes -Correct Procedure Yes -Procedure Performed Yes -Type of Procedure Debridement -Clinical Debridement Subcutaneous -Post Debridement Size (cm) - Length 22.7 -Post Debridement Size (cm) - Width 2.1 -Post Debridement Size (cm) - Depth 0.1 -Total Square Cm 47.67 -Wound/Ulcer Outcome Not Healed -Ulcer Cleansing Rinsed/ Irrigated with Saline -Foul Odor after Cleansing No -Bioengineered Tissue No -Topical Lidocaine (%) 4 -Bleeding Controlled with Pressure -Treatment Response Procedure Tolerated Well #5 R Lat LE -Time 10:11 -Correct Patient Yes -Correct Side, Site, Position Yes -Correct Procedure Yes -Procedure Performed Yes -Type of Procedure Debridement -Clinical Debridement Subcutaneous -Post Debridement Size (cm) - Length 2.1 -Post Debridement Size (cm) - Width 1.6 -Post Debridement Size (cm) - Depth 0.1 -Total Square Cm 3.36 -Wound/Ulcer Outcome Not Healed -Ulcer Cleansing Rinsed/ Irrigated with Saline -Foul Odor after Cleansing No -Bioengineered Tissue No -Topical Lidocaine (%) 4 -Bleeding Controlled with Pressure -Treatment Response Procedure Tolerated Well #4 R post LE -Time 10:12 -Correct Patient Yes -Correct Side, Site, Position Yes -Correct Procedure Yes -Procedure Performed Yes -Type of Procedure Debridement -Clinical Debridement Subcutaneous -Post Debridement Size (cm) - Length 1.1 -Post Debridement Size (cm) - Width 0.8 -Post Debridement Size (cm) - Depth 0.1 -Total Square Cm 0.88 -Wound/Ulcer Outcome Not Healed -Ulcer Cleansing Rinsed/ Irrigated with Saline -Foul Odor after Cleansing No -Bioengineered Tissue No -Topical Lidocaine (%) 4 -Bleeding Controlled with Pressure -Treatment Response Procedure Tolerated Well #3 R Med LE -Time 10:12 -Correct Patient Yes -Correct Side, Site, Position Yes -Correct Procedure Yes -Procedure Performed Yes -Type of Procedure Debridement -Clinical Debridement Subcutaneous -Post Debridement Size (cm) - Length 2.5 -Post Debridement Size (cm) - Width 0.8 -Post Debridement Size (cm) - Depth 0.6 -Total Square Cm 2.00 -Wound/Ulcer Outcome Not Healed -Ulcer Cleansing Rinsed/ Irrigated with Saline -Foul Odor after Cleansing No -Bioengineered Tissue No -Topical Lidocaine (%) 4 -Bleeding Controlled with Pressure -Treatment Response Procedure Tolerated Well #2 R [place] Cluster -Time 10:12 -Correct Patient Yes -Correct Side, Site, Position Yes -Correct Procedure Yes -Procedure Performed Yes -Type of Procedure Debridement -Clinical Debridement Subcutaneous -Post Debridement Size (cm) - Length 11.9 -Post Debridement Size (cm) - Width 4.1 -Post Debridement Size (cm) - Depth 0.1 -Total Square Cm 48.79 -Wound/Ulcer Outcome Not Healed -Ulcer Cleansing Rinsed/ Irrigated with Saline -Foul Odor after Cleansing No -Bioengineered Tissue No -Topical Lidocaine (%) 4 -Bleeding Controlled with Pressure -Treatment Response Procedure Tolerated Well #1 R 2nd toe amp/Arch/ Med Ankle -Time 10:13 -Correct Patient Yes -Correct Side, Site, Position Yes -Correct Procedure Yes -Procedure Performed Yes -Type of Procedure Debridement -Clinical Debridement Subcutaneous -Post Debridement Size (cm) - Length 26.1 -Post Debridement Size (cm) - Width 2.7 -Post Debridement Size (cm) - Depth 1.4 -Total Square Cm 70.47 -Wound/Ulcer Outcome Not Healed -Ulcer Cleansing Rinsed/ Irrigated with Saline -Foul Odor after Cleansing -Bioengineered Tissue No -Topical Lidocaine (%) 4 -Bleeding Controlled with Pressure -Treatment Response Procedure Tolerated Well Pain Scale: 0-10 Numeric Is Patient Pain Free? Yes Wound debrided: Right knee Wound Grade/Stage: Stage III Type of Debridement: Excisional debridement Anesthesia Used: 4% Lidocaine Solution Depth: Down to and including healthy tissue, in the subcutaneous layer Percentage of wound debrided: 100 Instrument Used: 3mm curette Tissue Removed: Slough and devitalized tissue Severity: Fat Layer Exposed Amount of bleeding with debridement: Mild Bleeding Controlled with: Pressure Patient tolerated procedure well Assessment/Plan Active Problems (Last Updated 09/28/18 @ 12:41 by Geraldine Steele) Ulcer of right foot with fat layer exposed (Chronic) Ulcer of right lower extremity with fat layer exposed (Chronic) Ulcer of left lower extremity with fat layer exposed (Chronic) Type 2 diabetes mellitus with diabetic polyneuropathy (Chronic) Localized edema (Chronic) Malnutrition (Chronic) Assessment: Open second and third ray resection secondary to 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 Diabetic neuropathy. Malnutrition suspected. 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 Delayed healing. Gait impairment and fall risk. Other comorbidities, right knee ulcer, tendon exposed (Dr. Gilbert managed), left knee ulcer (Dr. Gilbert managed) Plan: Left knee is essentially healed. Very minimal area left. Cultures taken at last visit grew 3+ staph aureus from the right knee. However, his spouse states no significant drainage in the past week. No tenderness or concerns also but no significant improvement over the past week. Debridement done as documented above, procedure was well-tolerated. Continue Laana with Adaptic over top. Leave in place for 3 days/change every third day. Erythromycin 250 mg every 6 hours per culture and sensitivity. Elevate lower extremities when sitting and in bed. Other wound care management per Dr. Gruber. Follow-up for nurse visit in 1 week for the knee ulcers in 2 weeks with me. All their questions were answered and they were advised to call with any further questions or concerns. This note was generated with [employer] dictation software. It may contain incorrect words, spelling, and punctuation that were not noted in checking the note before signing.
--- NOTE | 2018-10-19 13:32 | PN.PCM_ITS ---
(1) Ulcer of left lower extremity with fat layer exposed Status: Chronic Current Visit: Yes Code(s): L97.922 - Non-pressure chronic ulcer of unspecified part of left lower leg with fat layer exposed (2) Ulcer of right lower extremity with fat layer exposed Status: Chronic Current Visit: Yes Code(s): L97.912 - Non-pressure chronic ulcer of unspecified part of right lower leg with fat layer exposed (3) Type 2 diabetes mellitus with diabetic polyneuropathy Status: Chronic Current Visit: Yes Code(s): E11.42 - Type 2 diabetes mellitus with diabetic polyneuropathy Type of Wound Chief Complaint: right and left Leg ulcers and right foot ulcer History of Wound: Mr. Arguello is a 63-year-old male with multiple comorbidities follows up for delayed healing ulcers to the right foot as well as bilateral legs. It is noted he previously had widespread debridements and fasciotomies performed to bilateral lower extremities secondary to life-threatening and limb threatening infection; this was previously performed at [facility]. He continues to follow with Dr. Gilbert for her knee ulcers, and I saw him today for his other ulcer sites. He has been applying Santyl to both the wounds, Aquacel to leg ulcers, and wound VAC to right foot defect with quality and size reduction improvement. He denies chills, fever or otherwise feeling of unwell. He presents today with his . He refuses advanced wound care product application. He refuses hyperbaric oxygen therapy treatment. He continues to refuse surgical intervention. Progress of Wound: Left knee ulcer is improved. Right knee ulcer is stable. - Physical Exam Vital Signs Temp Pulse Resp BP 94.4 F L 87 16 126/74 H 10/19/18 09:18 10/19/18 09:18 10/19/18 09:18 10/19/18 09:18 General: Alert, Oriented x3, Cooperative, No apparent distress HEENT: Atraumatic Oral: Moist Mucosa Neck: Supple Lungs: Normal air movement Abdomen: Non Tender Extremities: No cyanosis Skin: Ulcer/ Wound Wound Measurements and Assessment WC - Nurse 1 - General Ulcer Measurement Start: 09/28/18 09:15 Freq: Status: Active Protocol: Activity Type Activity Date Activity User E-Sign Co-Sign Detail Recorded Client Recorded Date Recorded By Document 10/19/18 09:18 [facility] [id number] 10/19/18 09:37 [facility] 10/19/18 09:18 Wound Center Nurse 1 [Ulcer Assessment] #10 right heel -Combined with other wound No -Current Size (cm) - Length 1 -Current Size (cm) - Width 0.7 -Current Size (cm) - Depth 0.1 -Total Square Cm 0.7 -Photo Taken No -Epithelialization None Present -Tunneling No -Undermining/Tunneling No -Circular Undermining No -Exudate Amt Small (1-33%) -Exudate Type Serosanguineous -Wound Margin Distinct, Outline Attached -Granulation Amt Small (1-33%) -Granulation Quality [place] -Slough/Fibrin Yes -Necrosis Amt Large (67-100%) -Necrotic Tissue Type Adherent Slough -Texture (Lisa-wound Skin Appearance) Scarring -Moisture (Lisa-wound Skin Appearance Maceration ) -Color (Lisa-wound Skin Appearance) Palor -Temperature (Lisa-wound Skin No Abnormality Appearance) (Pt Warm) -Tenderness on Palpation (Lisa-wound No Skin Appearance) -Ulcer Cleansing Wound Cleanser -Foul Odor after Cleansing No -Anesthetic Used 4% Lidocaine Solution 9.L knee -Combined with other wound No -Current Size (cm) - Length 0.1 -Current Size (cm) - Width 0.1 -Current Size (cm) - Depth 0.1 -Total Square Cm 0.01 -Photo Taken No -Epithelialization None Present -Tunneling No -Undermining/Tunneling No -Circular Undermining No -Exudate Amt Small (1-33%) -Exudate Type Serous -Wound Margin Distinct, Outline Attached -Granulation Amt None Present (0 %) -Slough/Fibrin Yes -Necrosis Amt Large (67-100%) -Necrotic Tissue Type Eschar -Texture (Lisa-wound Skin Appearance) Scarring -Moisture (Lisa-wound Skin Appearance Dry/Scaly ) -Color (Lisa-wound Skin Appearance) Assessed -Temperature (Lisa-wound Skin No Abnormality Appearance) (Pt Warm) -Tenderness on Palpation (Lisa-wound No Skin Appearance) -Ulcer Cleansing Wound Cleanser -Foul Odor after Cleansing No -Anesthetic Used 4% Lidocaine Solution #8 r Knee -Combined with other wound No -Current Size (cm) - Length 0.9 -Current Size (cm) - Width 1.2 -Current Size (cm) - Depth 0.3 -Total Square Cm 1.08 -Photo Taken No -Epithelialization None Present -Tunneling No -Undermining/Tunneling Yes -Undermining/Tunneling Starts (O' 12 clock) -Undermining/Tunneling Ends (O'clock) 12 -Maximum Distance (cm) 0.2 -Circular Undermining Yes -Exudate Amt Small (1-33%) -Exudate Type Serous -Wound Margin Distinct, Outline Attached -Granulation Amt Small (1-33%) -Granulation Quality [place] -Slough/Fibrin Yes -Necrosis Amt Large (67-100%) -Necrotic Tissue Type Adherent Slough -Texture (Lisa-wound Skin Appearance) Scarring -Moisture (Lisa-wound Skin Appearance Maceration ) Dry/Scaly -Color (Lisa-wound Skin Appearance) Palor -Temperature (Lisa-wound Skin No Abnormality Appearance) (Pt Warm) -Tenderness on Palpation (Lisa-wound No Skin Appearance) -Ulcer Cleansing Wound Cleanser -Foul Odor after Cleansing No -Anesthetic Used 4% Lidocaine Solution #6 L Post -Combined with other wound No -Current Size (cm) - Length 22.6 -Current Size (cm) - Width 2 -Current Size (cm) - Depth 0.1 -Total Square Cm 45.2 -Photo Taken No -Tunneling No -Undermining/Tunneling No -Circular Undermining No -Exudate Amt Medium (34-66%) -Exudate Type Serosanguineous -Wound Margin Distinct, Outline Attached -Granulation Amt Large (67-100%) -Granulation Quality Red -Slough/Fibrin Yes -Necrosis Amt Small (1-33%) -Necrotic Tissue Type Adherent Slough -Texture (Lisa-wound Skin Appearance) Scarring -Moisture (Lisa-wound Skin Appearance Dry/Scaly ) -Color (Lisa-wound Skin Appearance) Assessed -Temperature (Lisa-wound Skin No Abnormality Appearance) (Pt Warm) -Tenderness on Palpation (Lisa-wound No Skin Appearance) -Ulcer Cleansing Wound Cleanser -Foul Odor after Cleansing No -Anesthetic Used 4% Lidocaine Solution #5 R Lat LE -Combined with other wound No -Current Size (cm) - Length 2 -Current Size (cm) - Width 1.5 -Current Size (cm) - Depth 0.1 -Total Square Cm 3.0 -Photo Taken No -Epithelialization Small 1-33% -Tunneling No -Undermining/Tunneling No -Circular Undermining No -Exudate Amt Small (1-33%) -Exudate Type Serosanguineous -Wound Margin Distinct, Outline Attached -Granulation Amt Large (67-100%) -Granulation Quality Red -Slough/Fibrin Yes -Necrosis Amt Small (1-33%) -Necrotic Tissue Type Adherent Slough -Texture (Ilsa-wound Skin Appearance) Scarring -Moisture (Lisa-wound Skin Appearance Dry/Scaly ) -Color (Lisa-wound Skin Appearance) Assessed -Temperature (Lisa-wound Skin No Abnormality Appearance) (Pt Warm) -Tenderness on Palpation (Lisa-wound No Skin Appearance) -Ulcer Cleansing Wound Cleanser -Foul Odor after Cleansing No -Anesthetic Used 4% Lidocaine Solution #4 R post LE -Combined with other wound No -Current Size (cm) - Length 1 -Current Size (cm) - Width 0.7 -Current Size (cm) - Depth 0.1 -Total Square Cm 0.7 -Photo Taken No -Epithelialization None Present -Tunneling No -Undermining/Tunneling No -Circular Undermining No -Exudate Amt Small (1-33%) -Exudate Type Serosanguineous -Wound Margin Distinct, Outline Attached -Granulation Amt None Present (0 %) -Slough/Fibrin Yes -Necrosis Amt Large (67-100%) -Necrotic Tissue Type Adherent Slough -Texture (Lisa-wound Skin Appearance) Scarring -Moisture (Lisa-wound Skin Appearance Dry/Scaly ) -Color (Lisa-wound Skin Appearance) Assessed -Temperature (Lisa-wound Skin No Abnormality Appearance) (Pt Warm) -Tenderness on Palpation (Lisa-wound No Skin Appearance) -Ulcer Cleansing Wound Cleanser -Foul Odor after Cleansing No -Anesthetic Used 4% Lidocaine Solution #3 R Med LE -Combined with other wound No -Current Size (cm) - Length 2.4 -Current Size (cm) - Width 0.7 -Current Size (cm) - Depth 0.6 -Total Square Cm 1.68 -Photo Taken No -Epithelialization None Present -Tunneling No -Undermining/Tunneling No -Circular Undermining No -Exudate Amt Medium (34-66%) -Exudate Type Serosanguineous -Wound Margin Distinct, Outline Attached -Granulation Amt Small (1-33%) -Granulation Quality Red -Slough/Fibrin Yes -Necrosis Amt Large (67-100%) -Necrotic Tissue Type Adherent Slough -Structure Exposed Tendon -Texture (Lisa-wound Skin Appearance) Scarring -Moisture (Lisa-wound Skin Appearance Dry/Scaly ) -Color (Lisa-wound Skin Appearance) Assessed -Temperature (Lisa-wound Skin No Abnormality Appearance) (Pt Warm) -Tenderness on Palpation (Lisa-wound No Skin Appearance) -Ulcer Cleansing Wound Cleanser -Foul Odor after Cleansing No -Anesthetic Used 4% Lidocaine Solution #2 R [place] Cluster -Combined with other wound No -Current Size (cm) - Length 11.8 -Current Size (cm) - Width 4 -Current Size (cm) - Depth 0.1 -Total Square Cm 47.2 -Photo Taken No -Epithelialization Small 1-33% -Tunneling No -Undermining/Tunneling No -Circular Undermining No -Exudate Amt Medium (34-66%) -Exudate Type Serosanguineous -Wound Margin Distinct, Outline Attached -Granulation Amt Large (67-100%) -Granulation Quality Red -Slough/Fibrin Yes -Necrosis Amt Small (1-33%) -Necrotic Tissue Type Adherent Slough -Texture (Lisa-wound Skin Appearance) Scarring -Moisture (Lisa-wound Skin Appearance Dry/Scaly ) -Color (Lisa-wound Skin Appearance) Assessed -Temperature (Lisa-wound Skin No Abnormality Appearance) (Pt Warm) -Tenderness on Palpation (Lisa-wound No Skin Appearance) -Ulcer Cleansing Wound Cleanser -Foul Odor after Cleansing No -Anesthetic Used 4% Lidocaine Solution #1 R 2nd toe amp/Arch/ Med Ankle -Combined with other wound No -Current Size (cm) - Length 26 -Current Size (cm) - Width 2.6 -Current Size (cm) - Depth 1.4 -Total Square Cm 67.6 -Photo Taken No -Epithelialization Small 1-33% -Tunneling No -Undermining/Tunneling No -Circular Undermining No -Exudate Amt Small (1-33%) -Exudate Type Serosanguineous -Wound Margin Distinct, Outline Attached -Granulation Amt Large (67-100%) -Granulation Quality Red -Slough/Fibrin Yes -Necrosis Amt Small (1-33%) -Necrotic Tissue Type Adherent Slough -Texture (Lisa-wound Skin Appearance) Scarring -Moisture (Lisa-wound Skin Appearance Maceration ) -Color (Lisa-wound Skin Appearance) Palor -Temperature (Lisa-wound Skin No Abnormality Appearance) (Pt Warm) -Tenderness on Palpation (Lisa-wound No Skin Appearance) -Ulcer Cleansing Wound Cleanser -Foul Odor after Cleansing No -Anesthetic Used 4% Lidocaine Solution [Edema Assessment] -Lower Limb Edema Present No -Right Calf (cm) 34 -Right Ankle (cm) 21 -Left Calf (cm) 32.5 -Left Ankle (cm) 20.3 WC - Nurse 2 - General Ulcer CM Notes Start: 09/28/18 09:15 Freq: Status: Active Protocol: Activity Type Activity Date Activity User E-Sign Co-Sign Detail Recorded Client Recorded Date Recorded By Document 10/19/18 09:58 TM [id number] 10/19/18 10:15 TM Document 10/19/18 10:28 MW [id number] 10/19/18 10:31 MW 10/19/18 10/19/18 09:58 10:28 Wound Center Nurse 2 [Procedure/Treatment] #10 right heel -Time 10:10 -Correct Patient Yes -Correct Side, Site, Position Yes -Correct Procedure Yes -Procedure Performed Yes -Type of Procedure Debridement -Clinical Debridement Subcutaneous -Post Debridement Size (cm) - Length 1.1 -Post Debridement Size (cm) - Width 0.8 -Post Debridement Size (cm) - Depth 0.1 -Total Square Cm 0.88 -Wound/Ulcer Outcome Not Healed -Ulcer Cleansing Rinsed/ Irrigated with Saline -Foul Odor after Cleansing No -Bioengineered Tissue No -Topical Lidocaine (%) 4 -Bleeding Controlled with Pressure -Treatment Response Procedure Tolerated Well 9.L knee -Time 10:29 -Correct Patient Yes -Correct Side, Site, Position Yes -Correct Procedure Yes -Procedure Performed Yes -Type of Procedure Debridement -Clinical Debridement Selective -Post Debridement Size (cm) - Length 0.1 -Post Debridement Size (cm) - Width 0.1 -Post Debridement Size (cm) - Depth 0.1 -Total Square Cm 0.01 -Wound/Ulcer Outcome Not Healed -Ulcer Cleansing Rinsed/ Irrigated with Saline -Foul Odor after Cleansing No -Bioengineered Tissue No -Bleeding Controlled with Pressure -Treatment Response Procedure Tolerated Well #8 r Knee -Time 10:29 -Correct Patient Yes -Correct Side, Site, Position Yes -Correct Procedure Yes -Procedure Performed Yes -Type of Procedure Debridement -Clinical Debridement Subcutaneous -Post Debridement Size (cm) - Length 1.0 -Post Debridement Size (cm) - Width 1.0 -Post Debridement Size (cm) - Depth 0.2 -Total Square Cm 1.00 -Wound/Ulcer Outcome Not Healed -Ulcer Cleansing Rinsed/ Irrigated with Saline -Foul Odor after Cleansing No -Bioengineered Tissue No -Bleeding Controlled with Pressure -Treatment Response Procedure Tolerated Well #6 L Post -Time 10:11 -Correct Patient Yes -Correct Side, Site, Position Yes -Correct Procedure Yes -Procedure Performed Yes -Type of Procedure Debridement -Clinical Debridement Subcutaneous -Post Debridement Size (cm) - Length 22.7 -Post Debridement Size (cm) - Width 2.1 -Post Debridement Size (cm) - Depth 0.1 -Total Square Cm 47.67 -Wound/Ulcer Outcome Not Healed -Ulcer Cleansing Rinsed/ Irrigated with Saline -Foul Odor after Cleansing No -Bioengineered Tissue No -Topical Lidocaine (%) 4 -Bleeding Controlled with Pressure -Treatment Response Procedure Tolerated Well #5 R Lat LE -Time 10:11 -Correct Patient Yes -Correct Side, Site, Position Yes -Correct Procedure Yes -Procedure Performed Yes -Type of Procedure Debridement -Clinical Debridement Subcutaneous -Post Debridement Size (cm) - Length 2.1 -Post Debridement Size (cm) - Width 1.6 -Post Debridement Size (cm) - Depth 0.1 -Total Square Cm 3.36 -Wound/Ulcer Outcome Not Healed -Ulcer Cleansing Rinsed/ Irrigated with Saline -Foul Odor after Cleansing No -Bioengineered Tissue No -Topical Lidocaine (%) 4 -Bleeding Controlled with Pressure -Treatment Response Procedure Tolerated Well #4 R post LE -Time 10:12 -Correct Patient Yes -Correct Side, Site, Position Yes -Correct Procedure Yes -Procedure Performed Yes -Type of Procedure Debridement -Clinical Debridement Subcutaneous -Post Debridement Size (cm) - Length 1.1 -Post Debridement Size (cm) - Width 0.8 -Post Debridement Size (cm) - Depth 0.1 -Total Square Cm 0.88 -Wound/Ulcer Outcome Not Healed -Ulcer Cleansing Rinsed/ Irrigated with Saline -Foul Odor after Cleansing No -Bioengineered Tissue No -Topical Lidocaine (%) 4 -Bleeding Controlled with Pressure -Treatment Response Procedure Tolerated Well #3 R Med LE -Time 10:12 -Correct Patient Yes -Correct Side, Site, Position Yes -Correct Procedure Yes -Procedure Performed Yes -Type of Procedure Debridement -Clinical Debridement Subcutaneous -Post Debridement Size (cm) - Length 2.5 -Post Debridement Size (cm) - Width 0.8 -Post Debridement Size (cm) - Depth 0.6 -Total Square Cm 2.00 -Wound/Ulcer Outcome Not Healed -Ulcer Cleansing Rinsed/ Irrigated with Saline -Foul Odor after Cleansing No -Bioengineered Tissue No -Topical Lidocaine (%) 4 -Bleeding Controlled with Pressure -Treatment Response Procedure Tolerated Well #2 R [place] Cluster -Time 10:12 -Correct Patient Yes -Correct Side, Site, Position Yes -Correct Procedure Yes -Procedure Performed Yes -Type of Procedure Debridement -Clinical Debridement Subcutaneous -Post Debridement Size (cm) - Length 11.9 -Post Debridement Size (cm) - Width 4.1 -Post Debridement Size (cm) - Depth 0.1 -Total Square Cm 48.79 -Wound/Ulcer Outcome Not Healed -Ulcer Cleansing Rinsed/ Irrigated with Saline -Foul Odor after Cleansing No -Bioengineered Tissue No -Topical Lidocaine (%) 4 -Bleeding Controlled with Pressure -Treatment Response Procedure Tolerated Well #1 R 2nd toe amp/Arch/ Med Ankle -Time 10:13 -Correct Patient Yes -Correct Side, Site, Position Yes -Correct Procedure Yes -Procedure Performed Yes -Type of Procedure Debridement -Clinical Debridement Subcutaneous -Post Debridement Size (cm) - Length 26.1 -Post Debridement Size (cm) - Width 2.7 -Post Debridement Size (cm) - Depth 1.4 -Total Square Cm 70.47 -Wound/Ulcer Outcome Not Healed -Ulcer Cleansing Rinsed/ Irrigated with Saline -Bioengineered Tissue No -Topical Lidocaine (%) 4 -Bleeding Controlled with Pressure -Treatment Response Procedure Tolerated Well [See Physician Procedure note for Specifics] Pain Scale: 0-10 Numeric [Pain] -Is Patient Pain Free? Yes Musculoskeletal: No Muscle Wasting Neurological: Cranial nerves II-XII grossly intact Psych/Mental Status: Normal Affect Debridement Note Post-Debridement Measurements/Treatment WC - Nurse 2 - General Ulcer CM Notes Start: 09/28/18 09:15 Freq: Status: Active Protocol: Activity Type Activity Date Activity User E-Sign Co-Sign Detail Recorded Client Recorded Date Recorded By Document 09/28/18 10:06 TM [id number] 09/28/18 10:15 TM Document 09/28/18 10:41 MW [id number] 09/28/18 10:51 MW Document 10/05/18 10:10 CS [id number] 10/05/18 10:11 CS Document 10/05/18 15:32 TM [id number] 10/05/18 15:36 TM Document 10/12/18 09:39 TM [id number] 10/12/18 09:52 TM Document 10/12/18 10:02 MW [id number] 10/12/18 10:07 MW Document 10/19/18 09:58 TM [id number] 10/19/18 10:15 TM Document 10/19/18 10:28 MW [id number] 10/19/18 10:31 MW 09/28/18 09/28/18 10/05/18 10:06 10:41 10:10 Wound Center Nurse 2 #10 right heel -Time 10:13 -Correct Patient Yes -Correct Side, Site, Position Yes -Correct Procedure Yes -Procedure Performed Yes -Type of Procedure Debridement -Clinical Debridement Subcutaneous -Post Debridement Size (cm) - Length 1.4 -Post Debridement Size (cm) - Width 1.0 -Post Debridement Size (cm) - Depth 0.1 -Total Square Cm 1.40 -Wound/Ulcer Outcome Not Healed -Ulcer Cleansing Rinsed/ Irrigated with Saline -Foul Odor after Cleansing No -Bioengineered Tissue No -Topical Lidocaine (%) 4 -Bleeding Controlled with Pressure -Treatment Response Procedure Tolerated Well 9.L knee -Time 10:42 10:10 -Correct Patient Yes Yes -Correct Side, Site, Position Yes Yes -Correct Procedure Yes Yes -Procedure Performed Yes Yes -Type of Procedure Debridement Debridement -Clinical Debridement Subcutaneous Subcutaneous -Post Debridement Size (cm) - Length 0.2 0.4 -Post Debridement Size (cm) - Width 0.6 0.5 -Post Debridement Size (cm) - Depth 0.1 0.2 -Total Square Cm 0.12 0.20 -Wound/Ulcer Outcome Not Healed Not Healed -Ulcer Cleansing Rinsed/ Rinsed/ Irrigated with Irrigated with Saline Saline -Foul Odor after Cleansing No No -Bioengineered Tissue No No -Bleeding Controlled with Pressure NA -Treatment Response Procedure Procedure Tolerated Well Tolerated Well #8 r Knee -Time 10:42 10:10 -Correct Patient Yes Yes -Correct Side, Site, Position Yes Yes -Correct Procedure Yes Yes -Procedure Performed Yes Yes -Type of Procedure Debridement Debridement -Clinical Debridement Subcutaneous Subcutaneous -Post Debridement Size (cm) - Length 1.2 1 -Post Debridement Size (cm) - Width 1.7 1.2 -Post Debridement Size (cm) - Depth 0.3 0.2 -Total Square Cm 2.04 1.2 -Wound/Ulcer Outcome Not Healed Not Healed -Ulcer Cleansing Rinsed/ Not Cleansed Irrigated with Saline -Foul Odor after Cleansing No No -Bioengineered Tissue No No -Bleeding Controlled with Pressure NA -Treatment Response Procedure Procedure Tolerated Well Tolerated Well #6 L Post -Time 10:09 -Correct Patient Yes -Correct Side, Site, Position Yes -Correct Procedure Yes -Procedure Performed Yes -Type of Procedure Debridement -Clinical Debridement Muscle -Post Debridement Size (cm) - Length 21.1 -Post Debridement Size (cm) - Width 2.1 -Post Debridement Size (cm) - Depth 0.5 -Total Square Cm 44.31 -Wound/Ulcer Outcome Not Healed -Ulcer Cleansing Rinsed/ Irrigated with Saline -Foul Odor after Cleansing No -Bioengineered Tissue No -Topical Lidocaine (%) 4 -Bleeding Controlled with Pressure -Treatment Response Procedure Tolerated Well #5 R Lat LE -Time 10:09 -Correct Patient Yes -Correct Side, Site, Position Yes -Correct Procedure Yes -Procedure Performed Yes -Type of Procedure Debridement -Clinical Debridement Subcutaneous -Post Debridement Size (cm) - Length 3.2 -Post Debridement Size (cm) - Width 1.8 -Post Debridement Size (cm) - Depth 0.1 -Total Square Cm 5.76 -Wound/Ulcer Outcome Not Healed -Ulcer Cleansing Rinsed/ Irrigated with Saline -Foul Odor after Cleansing No -Bioengineered Tissue No -Topical Lidocaine (%) 4 -Bleeding Controlled with Pressure -Treatment Response Procedure Tolerated Well #4 R post LE -Time 10:10 -Correct Patient Yes -Correct Side, Site, Position Yes -Correct Procedure Yes -Procedure Performed Yes -Type of Procedure Debridement -Clinical Debridement Subcutaneous -Post Debridement Size (cm) - Length 1.3 -Post Debridement Size (cm) - Width 1.1 -Post Debridement Size (cm) - Depth 0.1 -Total Square Cm 1.43 -Wound/Ulcer Outcome Not Healed -Ulcer Cleansing Rinsed/ Irrigated with Saline -Foul Odor after Cleansing No -Bioengineered Tissue No -Topical Lidocaine (%) 4 -Bleeding Controlled with Pressure -Treatment Response Procedure Tolerated Well #3 R Med LE -Time 10:10 -Correct Patient Yes -Correct Side, Site, Position Yes -Correct Procedure Yes -Procedure Performed Yes -Type of Procedure Debridement -Clinical Debridement Subcutaneous -Post Debridement Size (cm) - Length 3.6 -Post Debridement Size (cm) - Width 1.6 -Post Debridement Size (cm) - Depth 0.3 -Total Square Cm 5.76 -Wound/Ulcer Outcome Not Healed -Ulcer Cleansing Rinsed/ Irrigated with Saline -Foul Odor after Cleansing No -Bioengineered Tissue No -Topical Lidocaine (%) 4 -Bleeding Controlled with Pressure -Treatment Response Procedure Tolerated Well #2 R [place] Cluster -Time 10:11 -Correct Patient Yes -Correct Side, Site, Position Yes -Correct Procedure Yes -Procedure Performed Yes -Type of Procedure Debridement -Clinical Debridement Subcutaneous -Post Debridement Size (cm) - Length 15.6 -Post Debridement Size (cm) - Width 3.9 -Post Debridement Size (cm) - Depth 0.1 -Total Square Cm 60.84 -Wound/Ulcer Outcome Not Healed -Ulcer Cleansing Rinsed/ Irrigated with Saline -Foul Odor after Cleansing No -Bioengineered Tissue No -Topical Lidocaine (%) 4 -Bleeding Controlled with Pressure -Treatment Response Procedure Tolerated Well #1 R 2nd toe amp/Arch/ Med Ankle -Time 10:11 -Correct Patient Yes -Correct Side, Site, Position Yes -Correct Procedure Yes -Procedure Performed Yes -Type of Procedure Debridement -Clinical Debridement Subcutaneous -Post Debridement Size (cm) - Length 29.1 -Post Debridement Size (cm) - Width 2.9 -Post Debridement Size (cm) - Depth 1.3 -Total Square Cm 84.39 -Wound/Ulcer Outcome Not Healed -Ulcer Cleansing Rinsed/ Irrigated with Saline -Foul Odor after Cleansing No -Bioengineered Tissue No -Topical Lidocaine (%) 4 -Bleeding Controlled with Pressure -Treatment Response Procedure Tolerated Well Pain Scale: 0-10 Numeric Is Patient Pain Free? Yes 10/05/18 10/12/18 10/12/18 15:32 09:39 10:02 Wound Center Nurse 2 #10 right heel -Time 15:32 09:49 -Correct Patient Yes Yes -Correct Side, Site, Position Yes Yes -Correct Procedure Yes Yes -Procedure Performed Yes Yes -Type of Procedure Debridement Debridement -Clinical Debridement Subcutaneous Subcutaneous -Post Debridement Size (cm) - Length 0.6 1.0 -Post Debridement Size (cm) - Width 1.0 0.8 -Post Debridement Size (cm) - Depth 0.2 0.2 -Total Square Cm 0.60 0.80 -Wound/Ulcer Outcome Not Healed Not Healed -Ulcer Cleansing Rinsed/ Rinsed/ Irrigated with Irrigated with Saline Saline -Foul Odor after Cleansing No No -Bioengineered Tissue No No -Topical Lidocaine (%) 4 4 -Bleeding Controlled with Pressure Pressure -Treatment Response Procedure Procedure Tolerated Well Tolerated Well 9.L knee -Time 10:03 -Correct Patient Yes -Correct Side, Site, Position Yes -Correct Procedure Yes -Procedure Performed Yes -Type of Procedure Debridement -Clinical Debridement Subcutaneous -Post Debridement Size (cm) - Length 0.2 -Post Debridement Size (cm) - Width 0.4 -Post Debridement Size (cm) - Depth 0.2 -Total Square Cm 0.08 -Wound/Ulcer Outcome Not Healed -Ulcer Cleansing Rinsed/ Irrigated with Saline -Foul Odor after Cleansing No -Bioengineered Tissue No -Bleeding Controlled with Pressure -Treatment Response Procedure Tolerated Well #8 r Knee -Time 10:03 -Correct Patient Yes -Correct Side, Site, Position Yes -Correct Procedure Yes -Procedure Performed Yes -Type of Procedure Debridement -Clinical Debridement Subcutaneous -Post Debridement Size (cm) - Length 1.1 -Post Debridement Size (cm) - Width 1.1 -Post Debridement Size (cm) - Depth 0.3 -Total Square Cm 1.21 -Wound/Ulcer Outcome Not Healed -Ulcer Cleansing Rinsed/ Irrigated with Saline -Foul Odor after Cleansing No -Bioengineered Tissue No -Bleeding Controlled with Pressure -Treatment Response Procedure Tolerated Well #6 L Post -Time 15:32 09:49 -Correct Patient Yes Yes -Correct Side, Site, Position Yes Yes -Correct Procedure Yes Yes -Procedure Performed Yes Yes -Type of Procedure Debridement Debridement -Clinical Debridement Subcutaneous Subcutaneous -Post Debridement Size (cm) - Length 14.3 21.6 -Post Debridement Size (cm) - Width 2.7 2.6 -Post Debridement Size (cm) - Depth 0.2 0.2 -Total Square Cm 38.61 56.16 -Wound/Ulcer Outcome Not Healed Not Healed -Ulcer Cleansing Rinsed/ Rinsed/ Irrigated with Irrigated with Saline Saline -Foul Odor after Cleansing No No -Bioengineered Tissue No No -Topical Lidocaine (%) 4 4 -Bleeding Controlled with Pressure Pressure -Treatment Response Procedure Procedure Tolerated Well Tolerated Well #5 R Lat LE -Time 15:33 09:50 -Correct Patient Yes Yes -Correct Side, Site, Position Yes Yes -Correct Procedure Yes Yes -Procedure Performed Yes Yes -Type of Procedure Debridement Debridement -Clinical Debridement Subcutaneous Subcutaneous -Post Debridement Size (cm) - Length 2.6 2.5 -Post Debridement Size (cm) - Width 2.1 2.0 -Post Debridement Size (cm) - Depth 0.2 0.2 -Total Square Cm 5.46 5.00 -Wound/Ulcer Outcome Not Healed Not Healed -Ulcer Cleansing Rinsed/ Rinsed/ Irrigated with Irrigated with Saline Saline -Foul Odor after Cleansing No No -Bioengineered Tissue No No -Topical Lidocaine (%) 4 -Bleeding Controlled with Pressure Pressure -Treatment Response Procedure Procedure Tolerated Well Tolerated Well #4 R post LE -Time 15:33 09:50 -Correct Patient Yes Yes -Correct Side, Site, Position Yes Yes -Correct Procedure Yes Yes -Procedure Performed Yes Yes -Type of Procedure Debridement Debridement -Clinical Debridement Subcutaneous Subcutaneous -Post Debridement Size (cm) - Length 3.3 1.1 -Post Debridement Size (cm) - Width 1.1 1.0 -Post Debridement Size (cm) - Depth 0.3 0.2 -Total Square Cm 3.63 1.10 -Wound/Ulcer Outcome Not Healed Not Healed -Ulcer Cleansing Rinsed/ Rinsed/ Irrigated with Irrigated with Saline Saline -Foul Odor after Cleansing No No -Bioengineered Tissue No No -Topical Lidocaine (%) 4 4 -Bleeding Controlled with Pressure Pressure -Treatment Response Procedure Procedure Tolerated Well Tolerated Well #3 R Med LE -Time 15:34 09:51 -Correct Patient Yes Yes -Correct Side, Site, Position Yes Yes -Correct Procedure Yes Yes -Procedure Performed Yes Yes -Type of Procedure Debridement Debridement -Clinical Debridement Subcutaneous Subcutaneous -Post Debridement Size (cm) - Length 1.2 2.9 -Post Debridement Size (cm) - Width 1.0 1.1 -Post Debridement Size (cm) - Depth 0.2 0.3 -Total Square Cm 1.20 3.19 -Wound/Ulcer Outcome Not Healed Not Healed -Ulcer Cleansing Rinsed/ Rinsed/ Irrigated with Irrigated with Saline Saline -Foul Odor after Cleansing No No -Bioengineered Tissue No No -Topical Lidocaine (%) 4 4 -Bleeding Controlled with Pressure Pressure -Treatment Response Procedure Procedure Tolerated Well Tolerated Well #2 R [place] Cluster -Time 15:34 09:51 -Correct Patient Yes Yes -Correct Side, Site, Position Yes Yes -Correct Procedure Yes Yes -Procedure Performed Yes Yes -Type of Procedure Debridement Debridement -Clinical Debridement Subcutaneous Subcutaneous -Post Debridement Size (cm) - Length 22.1 22.0 -Post Debridement Size (cm) - Width 3.8 3.6 -Post Debridement Size (cm) - Depth 0.2 0.1 -Total Square Cm 83.98 79.20 -Wound/Ulcer Outcome Not Healed Not Healed -Ulcer Cleansing Rinsed/ Rinsed/ Irrigated with Irrigated with Saline Saline -Foul Odor after Cleansing No No -Bioengineered Tissue No No -Topical Lidocaine (%) 4 4 -Bleeding Controlled with Pressure Pressure -Treatment Response Procedure Procedure Tolerated Well Tolerated Well #1 R 2nd toe amp/Arch/ Med Ankle -Time 15:35 09:51 -Correct Patient Yes Yes -Correct Side, Site, Position Yes Yes -Correct Procedure Yes Yes -Procedure Performed Yes Yes -Type of Procedure Debridement Debridement -Clinical Debridement Subcutaneous Subcutaneous -Post Debridement Size (cm) - Length 29.2 29.6 -Post Debridement Size (cm) - Width 3.0 3.4 -Post Debridement Size (cm) - Depth 1.3 1.4 -Total Square Cm 87.60 100.64 -Wound/Ulcer Outcome Not Healed Not Healed -Ulcer Cleansing Rinsed/ Rinsed/ Irrigated with Irrigated with Saline Saline -Foul Odor after Cleansing No No -Bioengineered Tissue No No -Topical Lidocaine (%) 4 4 -Bleeding Controlled with Pressure Pressure -Treatment Response Procedure Procedure Tolerated Well Tolerated Well Pain Scale: 0-10 Numeric Is Patient Pain Free? Yes Yes 10/19/18 10/19/18 09:58 10:28 Wound Center Nurse 2 #10 right heel -Time 10:10 -Correct Patient Yes -Correct Side, Site, Position Yes -Correct Procedure Yes -Procedure Performed Yes -Type of Procedure Debridement -Clinical Debridement Subcutaneous -Post Debridement Size (cm) - Length 1.1 -Post Debridement Size (cm) - Width 0.8 -Post Debridement Size (cm) - Depth 0.1 -Total Square Cm 0.88 -Wound/Ulcer Outcome Not Healed -Ulcer Cleansing Rinsed/ Irrigated with Saline -Foul Odor after Cleansing No -Bioengineered Tissue No -Topical Lidocaine (%) 4 -Bleeding Controlled with Pressure -Treatment Response Procedure Tolerated Well 9.L knee -Time 10:29 -Correct Patient Yes -Correct Side, Site, Position Yes -Correct Procedure Yes -Procedure Performed Yes -Type of Procedure Debridement -Clinical Debridement Selective -Post Debridement Size (cm) - Length 0.1 -Post Debridement Size (cm) - Width 0.1 -Post Debridement Size (cm) - Depth 0.1 -Total Square Cm 0.01 -Wound/Ulcer Outcome Not Healed -Ulcer Cleansing Rinsed/ Irrigated with Saline -Foul Odor after Cleansing No -Bioengineered Tissue No -Bleeding Controlled with Pressure -Treatment Response Procedure Tolerated Well #8 r Knee -Time 10:29 -Correct Patient Yes -Correct Side, Site, Position Yes -Correct Procedure Yes -Procedure Performed Yes -Type of Procedure Debridement -Clinical Debridement Subcutaneous -Post Debridement Size (cm) - Length 1.0 -Post Debridement Size (cm) - Width 1.0 -Post Debridement Size (cm) - Depth 0.2 -Total Square Cm 1.00 -Wound/Ulcer Outcome Not Healed -Ulcer Cleansing Rinsed/ Irrigated with Saline -Foul Odor after Cleansing No -Bioengineered Tissue No -Bleeding Controlled with Pressure -Treatment Response Procedure Tolerated Well #6 L Post -Time 10:11 -Correct Patient Yes -Correct Side, Site, Position Yes -Correct Procedure Yes -Procedure Performed Yes -Type of Procedure Debridement -Clinical Debridement Subcutaneous -Post Debridement Size (cm) - Length 22.7 -Post Debridement Size (cm) - Width 2.1 -Post Debridement Size (cm) - Depth 0.1 -Total Square Cm 47.67 -Wound/Ulcer Outcome Not Healed -Ulcer Cleansing Rinsed/ Irrigated with Saline -Foul Odor after Cleansing No -Bioengineered Tissue No -Topical Lidocaine (%) 4 -Bleeding Controlled with Pressure -Treatment Response Procedure Tolerated Well #5 R Lat LE -Time 10:11 -Correct Patient Yes -Correct Side, Site, Position Yes -Correct Procedure Yes -Procedure Performed Yes -Type of Procedure Debridement -Clinical Debridement Subcutaneous -Post Debridement Size (cm) - Length 2.1 -Post Debridement Size (cm) - Width 1.6 -Post Debridement Size (cm) - Depth 0.1 -Total Square Cm 3.36 -Wound/Ulcer Outcome Not Healed -Ulcer Cleansing Rinsed/ Irrigated with Saline -Foul Odor after Cleansing No -Bioengineered Tissue No -Topical Lidocaine (%) 4 -Bleeding Controlled with Pressure -Treatment Response Procedure Tolerated Well #4 R post LE -Time 10:12 -Correct Patient Yes -Correct Side, Site, Position Yes -Correct Procedure Yes -Procedure Performed Yes -Type of Procedure Debridement -Clinical Debridement Subcutaneous -Post Debridement Size (cm) - Length 1.1 -Post Debridement Size (cm) - Width 0.8 -Post Debridement Size (cm) - Depth 0.1 -Total Square Cm 0.88 -Wound/Ulcer Outcome Not Healed -Ulcer Cleansing Rinsed/ Irrigated with Saline -Foul Odor after Cleansing No -Bioengineered Tissue No -Topical Lidocaine (%) 4 -Bleeding Controlled with Pressure -Treatment Response Procedure Tolerated Well #3 R Med LE -Time 10:12 -Correct Patient Yes -Correct Side, Site, Position Yes -Correct Procedure Yes -Procedure Performed Yes -Type of Procedure Debridement -Clinical Debridement Subcutaneous -Post Debridement Size (cm) - Length 2.5 -Post Debridement Size (cm) - Width 0.8 -Post Debridement Size (cm) - Depth 0.6 -Total Square Cm 2.00 -Wound/Ulcer Outcome Not Healed -Ulcer Cleansing Rinsed/ Irrigated with Saline -Foul Odor after Cleansing No -Bioengineered Tissue No -Topical Lidocaine (%) 4 -Bleeding Controlled with Pressure -Treatment Response Procedure Tolerated Well #2 R [place] Cluster -Time 10:12 -Correct Patient Yes -Correct Side, Site, Position Yes -Correct Procedure Yes -Procedure Performed Yes -Type of Procedure Debridement -Clinical Debridement Subcutaneous -Post Debridement Size (cm) - Length 11.9 -Post Debridement Size (cm) - Width 4.1 -Post Debridement Size (cm) - Depth 0.1 -Total Square Cm 48.79 -Wound/Ulcer Outcome Not Healed -Ulcer Cleansing Rinsed/ Irrigated with Saline -Foul Odor after Cleansing No -Bioengineered Tissue No -Topical Lidocaine (%) 4 -Bleeding Controlled with Pressure -Treatment Response Procedure Tolerated Well #1 R 2nd toe amp/Arch/ Med Ankle -Time 10:13 -Correct Patient Yes -Correct Side, Site, Position Yes -Correct Procedure Yes -Procedure Performed Yes -Type of Procedure Debridement -Clinical Debridement Subcutaneous -Post Debridement Size (cm) - Length 26.1 -Post Debridement Size (cm) - Width 2.7 -Post Debridement Size (cm) - Depth 1.4 -Total Square Cm 70.47 -Wound/Ulcer Outcome Not Healed -Ulcer Cleansing Rinsed/ Irrigated with Saline -Foul Odor after Cleansing -Bioengineered Tissue No -Topical Lidocaine (%) 4 -Bleeding Controlled with Pressure -Treatment Response Procedure Tolerated Well Pain Scale: 0-10 Numeric Is Patient Pain Free? Yes Wound debrided: Right knee Wound Grade/Stage: Stage III Type of Debridement: Excisional debridement Anesthesia Used: 4% Lidocaine Solution Depth: Down to and including healthy tissue, in the subcutaneous layer Percentage of wound debrided: 100 Instrument Used: 3mm curette Tissue Removed: Slough and devitalized tissue Severity: Fat Layer Exposed Amount of bleeding with debridement: Mild Bleeding Controlled with: Pressure Patient tolerated procedure well Assessment/Plan Active Problems (Last Updated 09/28/18 @ 12:41 by Geraldine Steele) Ulcer of right foot with fat layer exposed (Chronic) Ulcer of right lower extremity with fat layer exposed (Chronic) Ulcer of left lower extremity with fat layer exposed (Chronic) Type 2 diabetes mellitus with diabetic polyneuropathy (Chronic) Localized edema (Chronic) Malnutrition (Chronic) Assessment: Open second and third ray resection secondary to 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 Diabetic neuropathy. Malnutrition suspected. 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 Delayed healing. Gait impairment and fall risk. Other comorbidities, right knee ulcer, tendon exposed (Dr. Gilbert managed), left knee ulcer (Dr. Gilbert managed) Plan: Left knee is essentially healed. Very minimal area left. Cultures taken at last visit grew 3+ staph aureus from the right knee. However, his spouse states no significant drainage in the past week. No tenderness or concerns also but no significant improvement over the past week. Debridement done as documented above, procedure was well-tolerated. Continue Alana with Adaptic over top. Leave in place for 3 days/change every third day. Erythromycin 250 mg every 6 hours per culture and sensitivity. Elevate lower extremities when sitting and in bed. Other wound care management per Dr. Gruber. Follow-up for nurse visit in 1 week for the knee ulcers in 2 weeks with me. All their questions were answered and they were advised to call with any further questions or concerns. This note was generated with [employer] software. It may contain incorrect words, spelling, and punctuation that were not noted in checking the note before signing.
== END 2018-10-21 23:59 ==
LOC: WC 09:15
PROVIDERS: Family Provider Family Medicine; PCP Family Medicine; Visit Provider Podiatrist
DX: E11.621 Type 2 diabetes mellitus with foot ulcer (principal); R60.0 Localized edema; E11.42 Type 2 diabetes mellitus with diabetic polyneuropathy; L97.412 Non-pressure chronic ulcer of right heel and midfoot with fat layer exposed; E11.622 Type 2 diabetes mellitus with other skin ulcer; L97.823 Non-pressure chronic ulcer of other part of left lower leg with necrosis of muscle; L97.812 Non-pressure chronic ulcer of other part of right lower leg with fat layer exposed; L97.822 Non-pressure chronic ulcer of other part of left lower leg with fat layer exposed; I77.6 Arteritis, unspecified
CPT/HCPCS: 11042; 11043; 11045; 87070; 87075; 87077; 87186; 87205; 97597; 97606

== ENCOUNTER 2018-11-16 08:00 | Outpatient (RCR) | payer OTHER, SELFPAY ==
[2018-10-22 01:09] VITALS: BP 126/74; PULSE 87; RESP 16; TEMP 34.7
[2018-10-26 08:06] VITALS: BP 123/76; PULSE 91; RESP 18; TEMP 35.9
--- NOTE | 2018-10-26 10:51 | PN.PCM_ITS ---
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 Code(s): L97.923 - Non-pressure chronic ulcer of unspecified part of left lower leg with necrosis of muscle (4) Osteomyelitis Status: Suspected Code(s): M86.9 - Osteomyelitis, unspecified (5) PVD (peripheral vascular disease) Status: Suspected Code(s): I73.9 - Peripheral vascular disease, unspecified (6) Tobacco dependence due to cigarettes Status: Chronic Code(s): F17.210 - Nicotine dependence, cigarettes, uncompli cated (7) Ulcer of right lower extremity with fat layer exposed Status: Chronic Code(s): L97.912 - Non-pressure chronic ulcer of unspecified part of right lower leg with fat layer exposed (8) Ulcer of left lower extremity with fat layer exposed Status: Chronic Code(s): L97.922 - Non-pressure chronic ulcer of unspecified part of left lower leg with fat layer exposed (9) 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 Code(s): L97.923 - Non-pressure chronic ulcer of unspecified part of left lower leg with necrosis of muscle (10) Ulcer of right foot with necrosis of muscle Status: Chronic Code(s): L97.513 - Non-pressure chronic ulcer of other part of right foot with necrosis of muscle (11) Osteomyelitis Status: Chronic Code(s): M86.9 - Osteomyelitis, unspecified (12) Type 2 diabetes mellitus with diabetic polyneuropathy Status: Chronic Code(s): E11.42 - Type 2 diabetes mellitus with diabetic polyneuropathy (13) Localized edema Status: Chronic Code(s): R60.0 - Localized edema (14) Malnutrition Status: Chronic Code(s): E46 - Unspecified protein-calorie malnutrition Type of Wound Chief Complaint: right and left Leg ulcers and right foot ulcer History of Wound: Mr. Arguello is a 63-year-old male with multiple comorbidities follows up for delayed healing ulcers to the right foot as well as bilateral legs. It is noted he previously had widespread debridements and fasciotomies performed to bilateral lower extremities secondary to life-threatening and limb threatening infection; this was previously performed at [facility]. He continues to follow with Dr. Gilbert for her knee ulcers, and I saw him today for his other ulcer sites. the left knee ulcer site has healed. He has been applying Aquacel to leg ulcers, and wound VAC to right foot defect with quality and size reduction improvement. He denies chills, fever or otherwise feeling of unwell. He presents today with his . He still refuses advanced wound care product application. He refuses hyperbaric oxygen therapy treatment. He continues to refuse surgical intervention. Progress of Wound: Improving - Physical Exam Vital Signs Temp Pulse Resp BP 96.6 F L 91 18 123/76 H 10/26/18 08:06 12 08:06 10/26/18 08:06 10/26/18 08:06 General: Alert, Oriented x3, Cooperative Extremities: No cyanosis, Capillary Refill Less than 3 Seconds, No Calf Tenderness - Negative Errol and [place] bilateral, Diminished Peripheral Pulses, E geogre - Mild, - - Second and third ray resections right foot Skin: Ulcer/ Wound - No purulence, erythema, streaking, odor, or infection. Improved granulation tissue noted. Peripheral skin is atrophic and hairless Wound Measurements and Assessment WC - Nurse 1 - General Ulcer Measurement Start: 10/26/18 08:06 Freq: Status: Active Protocol: Activity Type Activity Date Activity User E-Sign Co-Sign Detail Recorded Client Recorded Date Recorded By Document 10/26/18 08:06 [id number] 10/26/18 08:40 DL 10/26/18 08:06 Wound Center Nurse 1 [Ulcer Assessment] #10 right heel -Current Size (cm) - Length 0.8 -Current Size (cm) - Width 0.3 -Current Size (cm) - Depth 0.1 -Total Square Cm 0.24 -Photo Taken No -Exudate Amt None Present (0 %) -Wound Margin Thickened -Granulation Amt Small (1-33%) -Granulation Quality Pale -Necrosis Amt Small (1-33%) -Necrotic Tissue Type Adherent Slough -Structure Exposed N/A -Texture (Lisa-wound Skin Appearance) Callus Scarring -Moisture (Lisa-wound Skin Appearance Dry/Scaly ) -Color (Lisa-wound Skin Appearance) Hemosiderin Staining -Temperature (Lisa-wound Skin No Abnormality Appearance) (Pt Warm) -Tenderness on Palpation (Lisa-wound No Skin Appearance) -Ulcer Cleansing Wound Cleanser -Foul Odor after Cleansing No -Anesthetic Used 5% Lidocaine Gel 9.L knee -Current Size (cm) - Length 0.1 -Current Size (cm) - Width 0.1 -Current Size (cm) - Depth 0.1 -Total Square Cm 0.01 -Photo Taken No -Exudate Amt Small (1-33%) -Exudate Type Serosanguineous -Wound Margin Thickened -Granulation Amt Small (1-33%) -Granulation Quality Pale -Necrosis Amt Small (1-33%) -Necrotic Tissue Type Adherent Slough -Structure Exposed N/A -Texture (Lisa-wound Skin Appearance) Scarring -Moisture (Lisa-wound Skin Appearance Dry/Scaly ) -Color (Lisa-wound Skin Appearance) Hemosiderin Staining -Temperature (Lisa-wound Skin No Abnormality Appearance) (Pt Warm) -Ulcer Cleansing Wound Cleanser -Foul Odor after Cleansing No -Anesthetic Used 5% Lidocaine Gel #8 r Knee -Current Size (cm) - Length 1 -Current Size (cm) - Width 1 -Current Size (cm) - Depth 0.2 -Total Square Cm 1 -Photo Taken No -Maximum Distance #2 (cm) 0.2 -Circular Undermining Yes -Exudate Amt Small (1-33%) -Exudate Type Serosanguineous -Wound Margin Thickened & Rolled Under -Granulation Amt Small (1-33%) -Granulation Quality Pale [place] -Necrosis Amt Medium (34-66%) -Necrotic Tissue Type Adherent Slough -Structure Exposed N/A -Texture (Lisa-wound Skin Appearance) Scarring -Moisture (Lisa-wound Skin Appearance Dry/Scaly ) -Color (Lisa-wound Skin Appearance) Hemosiderin Staining -Temperature (Lisa-wound Skin No Abnormality Appearance) (Pt Warm) -Tenderness on Palpation (Lisa-wound No Skin Appearance) -Ulcer Cleansing Wound Cleanser -Foul Odor after Cleansing No -Anesthetic Used 5% Lidocaine Gel #6 L Post -Current Size (cm) - Length 21 -Current Size (cm) - Width 1.6 -Current Size (cm) - Depth 0.1 -Total Square Cm 33.6 -Photo Taken No -Exudate Amt Medium (34-66%) -Exudate Type Serosanguineous -Wound Margin Thickened -Granulation Amt Large (67-100%) -Granulation Quality Red -Necrosis Amt Small (1-33%) -Necrotic Tissue Type Adherent Slough -Structure Exposed N/A -Texture (Lisa-wound Skin Appearance) Scarring -Moisture (Lisa-wound Skin Appearance Dry/Scaly ) -Color (Lisa-wound Skin Appearance) Hemosiderin Staining -Temperature (Lisa-wound Skin No Abnormality Appearance) (Pt Warm) -Tenderness on Palpation (Lisa-wound No Skin Appearance) -Ulcer Cleansing Wound Cleanser -Foul Odor after Cleansing No -Anesthetic Used 5% Lidocaine Gel #5 R Lat LE -Current Size (cm) - Length 1.8 -Current Size (cm) - Width 1.5 -Current Size (cm) - Depth 0.2 -Total Square Cm 2.70 -Photo Taken No -Exudate Amt Small (1-33%) -Exudate Type Serosanguineous -Wound Margin Thickened -Granulation Amt Medium (34-66%) -Granulation Quality [place] Red -Necrosis Amt Medium (34-66%) -Necrotic Tissue Type Adherent Slough -Structure Exposed N/A -Texture (Lisa-wound Skin Appearance) Scarring -Moisture (Lisa-wound Skin Appearance Dry/Scaly ) -Color (Lisa-wound Skin Appearance) Hemosiderin Staining -Temperature (Lisa-wound Skin No Abnormality Appearance) (Pt Warm) -Tenderness on Palpation (Lisa-wound No Skin Appearance) -Ulcer Cleansing Wound Cleanser -Foul Odor after Cleansing No -Anesthetic Used 5% Lidocaine Gel #4 R post LE -Current Size (cm) - Length 0.8 -Current Size (cm) - Width 0.5 -Current Size (cm) - Depth 0.2 -Total Square Cm 0.40 -Photo Taken No -Exudate Amt None Present (0 %) -Wound Margin Thickened -Granulation Amt Large (67-100%) -Granulation Quality Pale -Necrosis Amt Small (1-33%) -Necrotic Tissue Type Adherent Slough -Structure Exposed N/A -Texture (Lisa-wound Skin Appearance) Scarring -Moisture (Lisa-wound Skin Appearance Dry/Scaly ) -Color (Lisa-wound Skin Appearance) Hemosiderin Staining -Temperature (Lisa-wound Skin No Abnormality Appearance) (Pt Warm) -Tenderness on Palpation (Lisa-wound No Skin Appearance) -Ulcer Cleansing Wound Cleanser -Foul Odor after Cleansing No -Anesthetic Used 5% Lidocaine Gel #3 R Med LE -Current Size (cm) - Length 2.5 -Current Size (cm) - Width 0.6 -Current Size (cm) - Depth 0.6 -Total Square Cm 1.50 -Photo Taken No -Undermining/Tunneling Starts (O' 8 clock) -Undermining/Tunneling Ends (O'clock) 10 -Maximum Distance (cm) 0.2 -Exudate Amt Medium (34-66%) -Exudate Type Yellow/Green -Wound Margin Thickened -Granulation Amt Small (1-33%) -Granulation Quality [place] -Necrosis Amt Large (67-100%) -Necrotic Tissue Type Adherent Slough -Structure Exposed N/A -Texture (Lisa-wound Skin Appearance) Scarring -Moisture (Lisa-wound Skin Appearance Dry/Scaly ) -Color (Lisa-wound Skin Appearance) Hemosiderin Staining -Temperature (Lisa-wound Skin No Abnormality Appearance) (Pt Warm) -Tenderness on Palpation (Lisa-wound No Skin Appearance) -Ulcer Cleansing Wound Cleanser -Foul Odor after Cleansing No -Anesthetic Used 5% Lidocaine Gel #2 R [place] -Current Size (cm) - Length 11.5 -Current Size (cm) - Width 3 -Current Size (cm) - Depth 0.1 -Total Square Cm 34.5 -Photo Taken No -Exudate Amt Medium (34-66%) -Exudate Type Serosanguineous -Wound Margin Thickened -Granulation Amt Medium (34-66%) -Granulation Quality Red -Necrosis Amt Medium (34-66%) -Necrotic Tissue Type Adherent Slough -Structure Exposed N/A -Texture (Lisa-wound Skin Appearance) Scarring -Moisture (Lisa-wound Skin Appearance Dry/Scaly ) -Color (Lisa-wound Skin Appearance) Hemosiderin Staining -Temperature (Lisa-wound Skin No Abnormality Appearance) (Pt Warm) -Tenderness on Palpation (Lisa-wound No Skin Appearance) -Ulcer Cleansing Wound Cleanser -Foul Odor after Cleansing No -Anesthetic Used 5% Lidocaine Gel #1 R 2nd toe amp/Arch/ Med Ankle -Current Size (cm) - Length 25.2 -Current Size (cm) - Width 2.3 -Current Size (cm) - Depth 1 -Total Square Cm 57.96 -Photo Taken No -Exudate Amt Medium (34-66%) -Wound Margin Thickened & Rolled Under -Granulation Amt Large (67-100%) -Granulation Quality Red -Necrosis Amt Small (1-33%) -Necrotic Tissue Type Adherent Slough -Structure Exposed N/A -Texture (Lisa-wound Skin Appearance) Scarring -Moisture (Lisa-wound Skin Appearance Maceration ) -Color (Lisa-wound Skin Appearance) Hemosiderin Staining -Temperature (Lisa-wound Skin No Abnormality Appearance) (Pt Warm) -Tenderness on Palpation (Lisa-wound No Skin Appearance) -Ulcer Cleansing Wound Cleanser -Foul Odor after Cleansing No -Anesthetic Used 5% Lidocaine Gel [Edema Assessment] -Right Calf (cm) 35 -Right Ankle (cm) 20.2 -Left Calf (cm) 32.5 -Left Ankle (cm) 20 WC - Nurse 2 - General Ulcer CM Notes Start: 10/26/18 08:06 Freq: Status: Active Protocol: Activity Type Activity Date Activity User E-Sign Co-Sign Detail Recorded Client Recorded Date Recorded By Document 10/26/18 09:03 [id number] 10/26/18 09:10 10/26/18 09:03 Wound Center Nurse 2 [Procedure/Treatment] #10 right heel -Time 09:05 -Correct Patient Yes -Correct Side, Site, Position Yes -Correct Procedure Yes -Procedure Performed Yes -Type of Procedure Debridement -Clinical Debridement Subcutaneous -Post Debridement Size (cm) - Length 0.9 -Post Debridement Size (cm) - Width 0.4 -Post Debridement Size (cm) - Depth 0.1 -Total Square Cm 0.36 -Wound/Ulcer Outcome Not Healed -Ulcer Cleansing Rinsed/ Irrigated with Saline -Foul Odor after Cleansing No -Bioengineered Tissue No -Topical Lidocaine (%) 4 -Bleeding Controlled with Pressure -Offloading Yes -Type of Offloading Camwalker -Treatment Response Procedure Tolerated Well #6 L Post -Time 09:06 -Correct Patient Yes -Correct Side, Site, Position Yes -Correct Procedure Yes -Procedure Performed Yes -Type of Procedure Debridement -Clinical Debridement Subcutaneous -Post Debridement Size (cm) - Length 21.1 -Post Debridement Size (cm) - Width 1.7 -Post Debridement Size (cm) - Depth 0.1 -Total Square Cm 35.87 -Wound/Ulcer Outcome Not Healed -Ulcer Cleansing Rinsed/ Irrigated with Saline -Foul Odor after Cleansing No -Bioengineered Tissue No -Topical Lidocaine (%) 4 -Bleeding Controlled with Pressure -Offloading Yes -Treatment Response Procedure Tolerated Well #5 R Lat LE -Time 09:07 -Correct Patient Yes -Correct Side, Site, Position Yes -Correct Procedure Yes -Procedure Performed Yes -Type of Procedure Debridement -Clinical Debridement Subcutaneous -Post Debridement Size (cm) - Length 1.9 -Post Debridement Size (cm) - Width 1.6 -Post Debridement Size (cm) - Depth 0.2 -Total Square Cm 3.04 -Wound/Ulcer Outcome Not Healed -Ulcer Cleansing Rinsed/ Irrigated with Saline -Foul Odor after Cleansing No -Bioengineered Tissue No -Topical Lidocaine (%) 4 -Bleeding Controlled with Pressure -Offloading Yes -Type of Offloading Camwalker -Treatment Response Procedure Tolerated Well #4 R post LE -Time 09:07 -Correct Patient Yes -Correct Side, Site, Position Yes -Correct Procedure Yes -Procedure Performed Yes -Type of Procedure Debridement -Clinical Debridement Subcutaneous -Post Debridement Size (cm) - Length 0.9 -Post Debridement Size (cm) - Width 0.6 -Post Debridement Size (cm) - Depth 0.2 -Total Square Cm 0.54 -Wound/Ulcer Outcome Not Healed -Ulcer Cleansing Rinsed/ Irrigated with Saline -Foul Odor after Cleansing No -Bioengineered Tissue No -Topical Lidocaine (%) 4 -Bleeding Controlled with Pressure -Type of Offloading Camwalker -Treatment Response Procedure Tolerated Well #3 R Med LE -Time 09:08 -Correct Patient Yes -Correct Side, Site, Position Yes -Correct Procedure Yes -Procedure Performed Yes -Type of Procedure Debridement -Clinical Debridement Subcutaneous -Post Debridement Size (cm) - Length 2.6 -Post Debridement Size (cm) - Width 0.7 -Post Debridement Size (cm) - Depth 0.6 -Total Square Cm 1.82 -Wound/Ulcer Outcome Not Healed -Ulcer Cleansing Rinsed/ Irrigated with Saline -Foul Odor after Cleansing No -Bioengineered Tissue No -Topical Lidocaine (%) 4 -Bleeding Controlled with Pressure -Offloading Yes -Type of Offloading Camwalker -Treatment Response Procedure Tolerated Well #2 R [place] Cluster -Time 09:09 -Correct Patient Yes -Correct Side, Site, Position Yes -Correct Procedure Yes -Procedure Performed Yes -Type of Procedure Debridement -Clinical Debridement Subcutaneous -Post Debridement Size (cm) - Length 11.6 -Post Debridement Size (cm) - Width 3.1 -Post Debridement Size (cm) - Depth 0.1 -Total Square Cm 35.96 -Wound/Ulcer Outcome Not Healed -Ulcer Cleansing Rinsed/ Irrigated with Saline -Foul Odor after Cleansing No -Bioengineered Tissue No -Topical Lidocaine (%) 4 -Bleeding Controlled with Pressure -Offloading Yes -Type of Offloading Camwalker -Treatment Response Procedure Tolerated Well #1 R 2nd toe amp/Arch/ Med Ankle -Time 09:09 -Correct Patient Yes -Correct Side, Site, Position Yes -Correct Procedure Yes -Procedure Performed Yes -Type of Procedure Debridement -Clinical Debridement Subcutaneous -Post Debridement Size (cm) - Length 25.3 -Post Debridement Size (cm) - Width 2.4 -Post Debridement Size (cm) - Depth 1.1 -Total Square Cm 60.72 -Wound/Ulcer Outcome Not Healed -Ulcer Cleansing Rinsed/ Irrigated with Saline -Foul Odor after Cleansing No -Bioengineered Tissue No -Topical Lidocaine (%) 4 -Bleeding Controlled with Pressure -Offloading Yes -Type of Offloading Camwalker -Treatment Response Procedure Tolerated Well [See Physician Procedure note for Specifics] Pain Scale: 0-10 Numeric [Pain] -Is Patient Pain Free? Yes Musculoskeletal: No Tenderness to Palpation of Joints or Extremities, Muscle Wasting Neurological: - - Lack of normal epicritic sensation light touch Psych/Mental Status: Normal Affect, Appropriate Debridement Note Post-Debridement Measurements/Treatment WC - Nurse 2 - General Ulcer CM Notes Start: 10/26/18 08:06 Freq: Status: Active Protocol: Activity Type Activity Date Activity User E-Sign Co-Sign Detail Recorded Client Recorded Date Recorded By Document 10/26/18 09:03 [id number] 10/26/18 09:10 TM 10/26/18 09:03 Wound Center Nurse 2 #10 right heel -Time 09:05 -Correct Patient Yes -Correct Side, Site, Position Yes -Correct Procedure Yes -Procedure Performed Yes -Type of Procedure Debridement -Clinical Debridement Subcutaneous -Post Debridement Size (cm) - Length 0.9 -Post Debridement Size (cm) - Width 0.4 -Post Debridement Size (cm) - Depth 0.1 -Total Square Cm 0.36 -Wound/Ulcer Outcome Not Healed -Ulcer Cleansing Rinsed/ Irrigated with Saline -Foul Odor after Cleansing No -Bioengineered Tissue No -Topical Lidocaine (%) 4 -Bleeding Controlled with Pressure -Offloading Yes -Type of Offloading Camwalker -Treatment Response Procedure Tolerated Well #6 L Post -Time 09:06 -Correct Patient Yes -Correct Side, Site, Position Yes -Correct Procedure Yes -Procedure Performed Yes -Type of Procedure Debridement -Clinical Debridement Subcutaneous -Post Debridement Size (cm) - Length 21.1 -Post Debridement Size (cm) - Width 1.7 -Post Debridement Size (cm) - Depth 0.1 -Total Square Cm 35.87 -Wound/Ulcer Outcome Not Healed -Ulcer Cleansing Rinsed/ Irrigated with Saline -Foul Odor after Cleansing No -Bioengineered Tissue No -Topical Lidocaine (%) 4 -Bleeding Controlled with Pressure -Offloading Yes -Treatment Response Procedure Tolerated Well #5 R Lat LE -Time 09:07 -Correct Patient Yes -Correct Side, Site, Position Yes -Correct Procedure Yes -Procedure Performed Yes -Type of Procedure Debridement -Clinical Debridement Subcutaneous -Post Debridement Size (cm) - Length 1.9 -Post Debridement Size (cm) - Width 1.6 -Post Debridement Size (cm) - Depth 0.2 -Total Square Cm 3.04 -Wound/Ulcer Outcome Not Healed -Ulcer Cleansing Rinsed/ Irrigated with Saline -Foul Odor after Cleansing No -Bioengineered Tissue No -Topical Lidocaine (%) 4 -Bleeding Controlled with Pressure -Offloading Yes -Type of Offloading Camwalker -Treatment Response Procedure Tolerated Well #4 R post LE -Time 09:07 -Correct Patient Yes -Correct Side, Site, Position Yes -Correct Procedure Yes -Procedure Performed Yes -Type of Procedure Debridement -Clinical Debridement Subcutaneous -Post Debridement Size (cm) - Length 0.9 -Post Debridement Size (cm) - Width 0.6 -Post Debridement Size (cm) - Depth 0.2 -Total Square Cm 0.54 -Wound/Ulcer Outcome Not Healed -Ulcer Cleansing Rinsed/ Irrigated with Saline -Foul Odor after Cleansing No -Bioengineered Tissue No -Topical Lidocaine (%) 4 -Bleeding Controlled with Pressure -Type of Offloading Camwalker -Treatment Response Procedure Tolerated Well #3 R Med LE -Time 09:08 -Correct Patient Yes -Correct Side, Site, Position Yes -Correct Procedure Yes -Procedure Performed Yes -Type of Procedure Debridement -Clinical Debridement Subcutaneous -Post Debridement Size (cm) - Length 2.6 -Post Debridement Size (cm) - Width 0.7 -Post Debridement Size (cm) - Depth 0.6 -Total Square Cm 1.82 -Wound/Ulcer Outcome Not Healed -Ulcer Cleansing Rinsed/ Irrigated with Saline -Foul Odor after Cleansing No -Bioengineered Tissue No -Topical Lidocaine (%) 4 -Bleeding Controlled with Pressure -Offloading Yes -Type of Offloading Camwalker -Treatment Response Procedure Tolerated Well #2 R [place] Cluster -Time 09:09 -Correct Patient Yes -Correct Side, Site, Position Yes -Correct Procedure Yes -Procedure Performed Yes -Type of Procedure Debridement -Clinical Debridement Subcutaneous -Post Debridement Size (cm) - Length 11.6 -Post Debridement Size (cm) - Width 3.1 -Post Debridement Size (cm) - Depth 0.1 -Total Square Cm 35.96 -Wound/Ulcer Outcome Not Healed -Ulcer Cleansing Rinsed/ Irrigated with Saline -Foul Odor after Cleansing No -Bioengineered Tissue No -Topical Lidocaine (%) 4 -Bleeding Controlled with Pressure -Offloading Yes -Type of Offloading Camwalker -Treatment Response Procedure Tolerated Well #1 R 2nd toe amp/Arch/ Med Ankle -Time 09:09 -Correct Patient Yes -Correct Side, Site, Position Yes -Correct Procedure Yes -Procedure Performed Yes -Type of Procedure Debridement -Clinical Debridement Subcutaneous -Post Debridement Size (cm) - Length 25.3 -Post Debridement Size (cm) - Width 2.4 -Post Debridement Size (cm) - Depth 1.1 -Total Square Cm 60.72 -Wound/Ulcer Outcome Not Healed -Ulcer Cleansing Rinsed/ Irrigated with Saline -Foul Odor after Cleansing No -Bioengineered Tissue No -Topical Lidocaine (%) 4 -Bleeding Controlled with Pressure -Offloading Yes -Type of Offloading Camwalker -Treatment Response Procedure Tolerated Well Pain Scale: 0-10 Numeric Is Patient Pain Free? Yes Wound debrided: posterior leg Laterality: Left - g Wound Grade/Stage: grade 3 Type of Debridement: Excisional debridement Anesthesia Used: 5% Lidocaine Gel Depth: in the subcutaneous layer Percentage of wound debrided: 100 Instrument Used: #15 blade Tissue Removed: fibrous, devitalized subcutaneous, biofilm, slough Severity: Fat Layer Exposed Amount of bleeding with debridement: Mild Bleeding Controlled with: Pressure Patient tolerated procedure well - Additional Wound Wound debrided: foot Laterality: Right Wound Grade/Stage: grade 3 Type of Debridement: Excisional debridement Anesthesia Used: 5% Lidocaine Gel Depth: in the subcutaneous layer Percentage of wound debrided: 100 Instrument Used: #15 blade Tissue Removed: fibrous, devitalized subcutaneous, biofilm, slough Severity: Fat Layer Exposed Amount of bleeding with debridement: Mild Bleeding Controlled with: Pressure - The Patient tolerated procedure: Patient tolerated procedure well - Additional Wound Wound debrided: posterior leg Laterality: Right Wound Grade/Stage: grade 1 Type of Debridement: Excisional debridement Anesthesia Used: 5% Lidocaine Gel Depth: in the subcutaneous layer Percentage of wound debrided: 100 Instrument Used: #15 blade Tissue Removed: fibrous, devitalized subcutaneous, biofilm, slough Severity: Fat Layer Exposed Amount of bleeding with debridement: Mild Bleeding Controlled with: Pressure Patient tolerated procedure: Patient tolerated procedure well - Additional Wound Wound debrided: medial leg Laterality: Right Wound Grade/Stage: grade 1 Type of Debridement: Excisional debridement Anesthesia Used: 5% Lidocaine Gel Depth: in the subcutaneous layer Percentage of wound debrided: 100 Instrument Used: #15 blade Tissue Removed: fibrous, devitalized subcutaneous, biofilm, slough Severity: Fat Layer Exposed Amount of bleeding with debridement: Mild Bleeding Controlled with: Pressure Patient tolerated procedure: Patient tolerated procedure well - Additional Wound Wound debrided: lateral leg Laterality: Right Wound Grade/Stage: grade 1 Type of Debridement: Excisional debridement Anesthesia Used: 5% Lidocaine Gel Depth: in the subcutaneous layer Percentage of wound debrided: 100 Instrument Used: #15 blade Tissue Removed: fibrous, devitalized subcutaneous, biofilm, slough Severity: Fat Layer Exposed Amount of bleeding with debridement: Mild Bleeding Controlled with: Pressure Patient tolerated procedure: Patient tolerated procedure well - Additional Wound Wound debrided: anterior loeg Laterality: Right Wound Grade/Stage: grade 1 Anesthesia Used: 5% Lidocaine Gel Depth: in the subcutaneous layer Percentage of wound debrided: 100 Instrument Used: #15 blade Tissue Removed: fibrous, devitalized subcutaneous, biofilm, slough Severity: Fat Layer Exposed Amount of bleeding with debridement: Mild Bleeding Controlled with: Pressure Patient tolerated procedure: Patient tolerated procedure well - Additional Wound Wound debrided: heel Laterality: Right Wound Grade/Stage: grade 1 Type of Debridement: Excisional debridement Anesthesia Used: 5% Lidocaine Gel Depth: in the subcutaneous layer Percentage of wound debrided: 100 Instrument Used: #15 blade Tissue Removed: fibrous, devitalized subcutaneous, biofilm, slough Severity: Fat Layer Exposed Amount of bleeding with debridement: Mild Bleeding Controlled with: Pressure Patient tolerated procedure: Patient tolerated procedure well Assessment/Plan Assessment: Open second and third ray resection secondary to 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 Diabetic neuropathy. Malnutrition suspected. 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 Delayed healing. Gait impairment and fall risk. Other comorbidities, right knee ulcer, tendon exposed (Dr. Gilbert managed), left knee ulcer (Dr. Gilbert managed) Plan: I reviewed and discussed his case with the patient and the patient's . Subcutaneous debridements were performed as noted in the clinical panel. I Recommended changing the dressings daily with group home facility staff assistance with santyl to knees (per Dr. Gilbert) and aquacel ag to the leg ulcers, santyl to devitalized tendon zones, and wound vac to the right foot. I also recommend continued wound VAC changes to the right foot that extends to the medial ankle every 3 days. It is noted that this foot site has some bridging epithelialization noted to the center and is now broken into 2 regions; the wound VAC was bridged over the site. No infection is noted to any of the aformentioned lower extremity debridement sites. The ulcer sites have improved quality with granulation tissue. He has completed a 6 weeks of IV antibiotic of Unasyn. I recommend he avoids laying directly on his wounds to reduce pressure, and I was concerned about his perfusion to his limbs. He had an arterial Doppler scheduled with Dr. Morgan's staff on August 02, 2018 and overall perfusion was confirmed; additional intervention or workup was not recommended. It is also noted that he did have venous Doppler performed with reflux evaluation. He did not have evidence of deep venous thrombosis or venous insufficiency at that time; the vessels were compressible. To continue with nutritional supplementation optimize healing; I recommend Juan. I recommend he sustained from smoking and alcohol activities to optimize healing as well. His workup for vasculitis and underlying autoimmune disorder is also pending. A punch biopsy was sent during his last surgical intervention on June 10 and this demonstrated inflammatory changes without malignancy. He had initial screening labs and so far he has a negative RA titer, HL of the 27, KEVIN, anti-CCP, and rheumatoid factor. Several his antibody screenings were not reportable. I have communicated this workup with his current managing physician at [facility], Dr. Perdomo, to see if additional recommendations or workup is indicated. He is home now. I will further forward this information along to his primary care physician, Dr. Sparks. Hyperbaric oxygen therapy was recommended and it is noted his ejection fraction was most recently 50%. He refuses at this time. Dr. Gilbert continues to manage his bilateral knee ulcers including debridements and traditional wound care plan. I recommend same-day surgery versa jet debridement with application of advanced wound care products including epi cord, amnio fill, and amnio fix product line derived from amniotic cord cells and umbilical cord cells. The benefits, indications, planned procedure, possible benefits risks and anticipated healing time is were discuss ed. He understands this is a staged procedure and often serial applications are required. He obtained his clearance from Dr. Sparks and an additional Dr. Ponce cardiac evaluation preoperative was recommended. I reviewed the urgency with healing these wounds in a timely manner and encouraged him to reconsider this. He refuses at this time. I answered all of his questions. Additional amputation of the right foot is not planned due to his fairly nonambulatory status. Smoking cessation was discussed in detail again today and compliance is imperative to optimize healing of surgical success. I recommend further follow-up at the wound care center 1 week with me, or call sooner if he has any questions. Compliance at this advanced wound care center was reviewed. He understands additional palliative care programs are an option if he does not wish to proceed with advanced wound care opportunities that has been recommended.
[2018-11-02 08:10] VITALS: BP 123/84; PULSE 83; RESP 16; TEMP 36.1
--- NOTE | 2018-11-02 09:17 | PCM.WC.PN ---
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 Current Visit: Yes Code(s): L97.513 - Non-pressure chronic ulcer of other part of right foot with necrosis of muscle (3) Ulcer of right foot with fat layer exposed Status: Chronic Current Visit: Yes Code(s): L97.512 - Non-pressure chronic ulcer of other part of right foot with fat layer exposed (4) Delayed wound healing Status: Chronic Current Visit: Yes Code(s): T14.8XXD - Other injury of unspecified body region, subsequent encounter (5) 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 Current Visit: Yes Code(s): L97.923 - Non-pressure chronic ulcer of unspecified part of left lower leg with necrosis of muscle (6) Osteomyelitis Status: Suspected Current Visit: Yes Code(s): M86.9 - Osteomyelitis, unspecified (7) PVD (peripheral vascular disease) Status: Suspected Current Visit: Yes Code(s): I73.9 - Peripheral vascular disease, unspecified (8) Tobacco dependence due to cigarettes Status: Chronic Current Visit: Yes Code(s): F17.210 - Nicotine dependence, cigarettes, uncomplicated (9) Ulcer of left lower extremity with fat layer exposed Status: Chronic Current Visit: Yes Code(s): L97.922 - Non-pressure chronic ulcer of unspecified part of left lower leg with fat layer exposed (10) 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 Current Visit: Yes Code(s): L97.923 - Non-pressure chronic ulcer of unspecified part of left lower leg with necrosis of muscle (11) Type 2 diabetes mellitus with diabetic polyneuropathy Status: Chronic Current Visit: Yes Code(s): E11.42 - Type 2 diabetes mellitus with diabetic polyneuropathy (12) Localized edema Status: Chronic Current Visit: Yes Code(s): R60.0 - Localized edema (13) Malnutrition Status: Chronic Current Visit: No Code(s): E46 - Unspecified protein-calorie malnutrition Type of Wound Chief Complaint: right and left Leg ulcers and right foot ulcer History of Wound: Mr. Arguello is a 63-year-old male with multiple comorbidities follows up for delayed healing ulcers to the right foot as well as bilateral legs. It is noted he previously had widespread debridements and fasciotomies performed to bilateral lower extremities secondary to life-threatening and limb threatening infection; this was previously performed at [facility]. He continues to follow with Dr. Gilbert for her knee ulcers, and I saw him today for his other ulcer sites. the left knee ulcer site has healed. He has been applying Aquacel to leg ulcers, and wound VAC to right foot defect with quality and size reduction improvement. He denies chills, fever or otherwise feeling of unwell. He presents today with his . He still refuses advanced wound care product application. He refuses hyperbaric oxygen therapy treatment. He continues to refuse surgical intervention. He is slightly decreased his cigarette use. Progress of Wound: Improving - Physical Exam Vital Signs Temp Pulse Resp BP 96.9 F L 83 16 123/84 H 11/02/18 08:10 11/02/18 08:10 11/02/18 08:10 11/02/18 08:10 General: Alert, Oriented x3, Cooperative Extremities: No cyanosis, Capillary Refill Less than 3 Seconds, No Calf Tenderness, Diminished Peripheral Pulses, Edema Skin: Ulcer/ Wound - No purulence, erythema, streaking, odor, or infection. There is some moisture mild odor to from the right foot ulcer sites we will give the wound VAC a break for a week. There is some additional new deep tissue necrosis to the posterior left leg ulcer site and some slight visualized tendinous and fascial structure. There is continued peripheral epithelialization however to this site, - - The skin is hairless and atrophic bilateral lower extremities Wound Measurements and Assessment WC - Nurse 1 - General Ulcer Measurement Start: 10/26/18 08:06 Freq: Status: Active Protocol: Activity Type Activity Date Activity User E-Sign Co-Sign Detail Recorded Client Recorded Date Recorded By Document 11/02/18 08:10 [id number] 11/02/18 08:25 CS 11/02/18 08:10 Wound Center Nurse 1 [Ulcer Assessment] #11 RIGHT MEDIAL FOOT -Combined with other wound No -Current Size (cm) - Length 12 -Current Size (cm) - Width 2 -Current Size (cm) - Depth 0.2 -Total Square Cm 24 -Photo Taken No -Epithelialization None Present -Tunneling No -Undermining/Tunneling No -Circular Undermining No -Temperature (Lisa-wound Skin No Abnormality Appearance) (Pt Warm) -Ulcer Cleansing Rinsed/ Irrigated with Saline -Foul Odor after Cleansing No -Anesthetic Used 4% Lidocaine Solution #10 right heel -Combined with other wound No -Current Size (cm) - Length 0.6 -Current Size (cm) - Width 0.9 -Current Size (cm) - Depth 0.2 -Total Square Cm 0.54 -Photo Taken No -Epithelialization None Present -Tunneling No -Undermining/Tunneling No -Circular Undermining No -Exudate Amt None Present (0 %) -Temperature (Lisa-wound Skin No Abnormality Appearance) (Pt Warm) -Tenderness on Palpation (Lisa-wound No Skin Appearance) -Ulcer Cleansing Rinsed/ Irrigated with Saline -Foul Odor after Cleansing No -Anesthetic Used 4% Lidocaine Solution 9.L knee -Combined with other wound No -Current Size (cm) - Length 0.1 -Current Size (cm) - Width 0.1 -Current Size (cm) - Depth 0.1 -Total Square Cm 0.01 -Photo Taken No -Temperature (Lisa-wound Skin No Abnormality Appearance) (Pt Warm) -Tenderness on Palpation (Lisa-wound No Skin Appearance) -Ulcer Cleansing Rinsed/ Irrigated with Saline -Foul Odor after Cleansing No -Anesthetic Used 4% Lidocaine Solution #8 r Knee -Combined with other wound No -Current Size (cm) - Length 1 -Current Size (cm) - Width 0.8 -Current Size (cm) - Depth 0.6 -Total Square Cm 0.8 -Photo Taken No -Circular Undermining Yes -Temperature (Lisa-wound Skin No Abnormality Appearance) (Pt Warm) -Tenderness on Palpation (Lisa-wound No Skin Appearance) -Ulcer Cleansing Rinsed/ Irrigated with Saline -Foul Odor after Cleansing No -Anesthetic Used 4% Lidocaine Solution #6 L Post -Combined with other wound No -Current Size (cm) - Length 21 -Current Size (cm) - Width 1.8 -Current Size (cm) - Depth 0.3 -Total Square Cm 37.8 -Photo Taken No -Epithelialization None Present -Tunneling No -Undermining/Tunneling No -Temperature (Lisa-wound Skin No Abnormality Appearance) (Pt Warm) -Tenderness on Palpation (Lisa-wound No Skin Appearance) -Ulcer Cleansing Rinsed/ Irrigated with Saline -Foul Odor after Cleansing No -Anesthetic Used 4% Lidocaine Solution #5 R Lat LE -Combined with other wound No -Current Size (cm) - Length 1.5 -Current Size (cm) - Width 1.3 -Current Size (cm) - Depth 0.3 -Total Square Cm 1.95 -Photo Taken No -Temperature (Lisa-wound Skin No Abnormality Appearance) (Pt Warm) -Tenderness on Palpation (Lisa-wound No Skin Appearance) -Ulcer Cleansing Rinsed/ Irrigated with Saline -Foul Odor after Cleansing No -Anesthetic Used 4% Lidocaine Solution #4 R post LE -Combined with other wound No -Current Size (cm) - Length 0.8 -Current Size (cm) - Width 0.5 -Current Size (cm) - Depth 0.2 -Total Square Cm 0.40 -Temperature (Lisa-wound Skin No Abnormality Appearance) (Pt Warm) -Tenderness on Palpation (Lisa-wound No Skin Appearance) -Ulcer Cleansing Rinsed/ Irrigated with Saline -Foul Odor after Cleansing No -Anesthetic Used 4% Lidocaine Solution #3 R Med LE -Combined with other wound No -Current Size (cm) - Length 1.7 -Current Size (cm) - Width 0.4 -Current Size (cm) - Depth 0.4 -Total Square Cm 0.68 -Photo Taken No -Epithelialization None Present -Temperature (Lisa-wound Skin No Abnormality Appearance) (Pt Warm) -Tenderness on Palpation (Ilsa-wound No Skin Appearance) -Ulcer Cleansing Rinsed/ Irrigated with Saline -Foul Odor after Cleansing No -Anesthetic Used 4% Lidocaine Solution #2 R [place] Cluster -Combined with other wound No -Current Size (cm) - Length 10.8 -Current Size (cm) - Width 3 -Current Size (cm) - Depth 0.1 -Total Square Cm 32.4 -Temperature (Lisa-wound Skin No Abnormality Appearance) (Pt Warm) -Tenderness on Palpation (Lisa-wound No Skin Appearance) -Ulcer Cleansing Rinsed/ Irrigated with Saline -Foul Odor after Cleansing No -Anesthetic Used 4% Lidocaine Solution #1 R 2nd toe amp/Arch/ Med Ankle -Combined with other wound No -Current Size (cm) - Length 3 -Current Size (cm) - Width 0.3 -Current Size (cm) - Depth 0.7 -Total Square Cm 0.9 -Photo Taken No -Epithelialization None Present -Tunneling No -Undermining/Tunneling No -Circular Undermining No -Temperature (Lisa-wound Skin No Abnormality Appearance) (Pt Warm) -Tenderness on Palpation (Lisa-wound No Skin Appearance) -Ulcer Cleansing Rinsed/ Irrigated with Saline -Foul Odor after Cleansing No -Anesthetic Used 4% Lidocaine Solution [Edema Assessment] -Lower Limb Edema Present NA WC - Nurse 2 - General Ulcer CM Notes Start: 10/26/18 08:06 Freq: Status: Active Protocol: Activity Type Activity Date Activity User E-Sign Co-Sign Detail Recorded Client Recorded Date Recorded By Document 11/02/18 08:44 JAMAL [id number] 11/02/18 08:51 JAMAL 11/02/18 08:44 Wound Center Nurse 2 [Procedure/Treatment] #11 RIGHT MEDIAL FOOT -Time 08:44 -Correct Patient Yes -Correct Side, Site, Position Yes -Correct Procedure Yes -Procedure Performed Yes -Type of Procedure Debridement -Clinical Debridement Subcutaneous -Post Debridement Size (cm) - Length 12.1 -Post Debridement Size (cm) - Width 2 -Post Debridement Size (cm) - Depth 0.2 -Total Square Cm 24.2 -Wound/Ulcer Outcome Not Healed -Ulcer Cleansing Rinsed/ Irrigated with Saline -Foul Odor after Cleansing No -Bioengineered Tissue No -Bleeding Controlled with Pressure -Offloading No -Treatment Response Procedure Tolerated Well #10 right heel -Time 08:45 -Correct Patient Yes -Correct Side, Site, Position Yes -Correct Procedure Yes -Procedure Performed Yes -Type of Procedure Debridement -Clinical Debridement Subcutaneous -Post Debridement Size (cm) - Length 0.6 -Post Debridement Size (cm) - Width 1 -Post Debridement Size (cm) - Depth 0.2 -Total Square Cm 0.6 -Wound/Ulcer Outcome Not Healed -Ulcer Cleansing Rinsed/ Irrigated with Saline -Foul Odor after Cleansing No -Bioengineered Tissue No -Bleeding Controlled with Pressure -Offloading No -Treatment Response Procedure Tolerated Well #6 L Post -Time 08:46 -Correct Patient Yes -Correct Side, Site, Position Yes -Correct Procedure Yes -Procedure Performed Yes -Type of Procedure Debridement -Clinical Debridement Subcutaneous -Post Debridement Size (cm) - Length 21 -Post Debridement Size (cm) - Width 1.9 -Post Debridement Size (cm) - Depth 0.3 -Total Square Cm 39.9 -Wound/Ulcer Outcome Not Healed -Ulcer Cleansing Rinsed/ Irrigated with Saline -Foul Odor after Cleansing No -Bioengineered Tissue No -Bleeding Controlled with Pressure -Offloading No -Treatment Response Procedure Tolerated Well #5 R Lat LE -Time 08:46 -Correct Patient Yes -Correct Side, Site, Position Yes -Correct Procedure Yes -Procedure Performed Yes -Type of Procedure Debridement -Clinical Debridement Subcutaneous -Post Debridement Size (cm) - Length 1.5 -Post Debridement Size (cm) - Width 1.4 -Post Debridement Size (cm) - Depth 0.3 -Total Square Cm 2.10 -Wound/Ulcer Outcome Not Healed -Ulcer Cleansing Rinsed/ Irrigated with Saline -Foul Odor after Cleansing No -Bioengineered Tissue No -Bleeding Controlled with Pressure -Offloading No -Treatment Response Procedure Tolerated Well #4 R post LE -Time 08:46 -Correct Patient Yes -Correct Side, Site, Position Yes -Correct Procedure Yes -Procedure Performed Yes -Type of Procedure Debridement -Clinical Debridement Subcutaneous -Post Debridement Size (cm) - Length 0.8 -Post Debridement Size (cm) - Width 0.6 -Post Debridement Size (cm) - Depth 0.2 -Total Square Cm 0.48 -Wound/Ulcer Outcome Not Healed -Ulcer Cleansing Rinsed/ Irrigated with Saline -Foul Odor after Cleansing No -Bioengineered Tissue No -Bleeding Controlled with Pressure -Offloading No -Treatment Response Procedure Tolerated Well #3 R Med LE -Time 08:47 -Correct Patient Yes -Correct Side, Site, Position Yes -Correct Procedure Yes -Procedure Performed Yes -Type of Procedure Debridement -Clinical Debridement Subcutaneous -Post Debridement Size (cm) - Length 1.8 -Post Debridement Size (cm) - Width 0.5 -Post Debridement Size (cm) - Depth 0.4 -Total Square Cm 0.90 -Wound/Ulcer Outcome Not Healed -Ulcer Cleansing Rinsed/ Irrigated with Saline -Foul Odor after Cleansing No -Bioengineered Tissue No -Bleeding Controlled with Pressure -Offloading No -Treatment Response Procedure Tolerated Well #2 R [place] Cluster -Time 08:47 -Correct Patient Yes -Correct Side, Site, Position Yes -Correct Procedure Yes -Procedure Performed Yes -Type of Procedure Debridement -Clinical Debridement Subcutaneous -Post Debridement Size (cm) - Length 10.8 -Post Debridement Size (cm) - Width 3.1 -Post Debridement Size (cm) - Depth 0.1 -Total Square Cm 33.48 -Wound/Ulcer Outcome Not Healed -Ulcer Cleansing Rinsed/ Irrigated with Saline -Foul Odor after Cleansing No -Bioengineered Tissue No -Bleeding Controlled with Pressure -Offloading No -Treatment Response Procedure Tolerated Well #1 R 2nd toe amp/Arch/ Med Ankle -Time 08:47 -Correct Patient Yes -Correct Side, Site, Position Yes -Correct Procedure Yes -Procedure Performed Yes -Type of Procedure Debridement -Clinical Debridement Subcutaneous -Post Debridement Size (cm) - Length 3 -Post Debridement Size (cm) - Width 0.4 -Post Debridement Size (cm) - Depth 0.7 -Total Square Cm 1.2 -Wound/Ulcer Outcome Not Healed -Ulcer Cleansing Rinsed/ Irrigated with Saline -Foul Odor after Cleansing No -Bioengineered Tissue No -Bleeding Controlled with Pressure -Offloading No -Treatment Response Procedure Tolerated Well [See Physician Procedure note for Specifics] Pain Scale: 0-10 Numeric [Pain] -Is Patient Pain Free? Yes Musculoskeletal: No Tenderness to Palpation of Joints or Extremities, Muscle Wasting Neurological: - - Lack of epicritic sensation and normal via light touch Psych/Mental Status: Normal Affect, Appropriate Debridement Note Post-Debridement Measurements/Treatment WC - Nurse 2 - General Ulcer CM Notes Start: 10/26/18 08:06 Freq: Status: Active Protocol: Activity Type Activity Date Activity User E-Sign Co-Sign Detail Recorded Client Recorded Date Recorded By Document 10/26/18 09:03 TM [id number] 10/26/18 09:10 TM Document 11/02/18 08:44 JF [id number] 11/02/18 08:51 JAMAL 10/26/18 11/02/18 09:03 08:44 Wound Center Nurse 2 #11 RIGHT MEDIAL FOOT -Time 08:44 -Correct Patient Yes -Correct Side, Site, Position Yes -Correct Procedure Yes -Procedure Performed Yes -Type of Procedure Debridement -Clinical Debridement Subcutaneous -Post Debridement Size (cm) - Length 12.1 -Post Debridement Size (cm) - Width 2 -Post Debridement Size (cm) - Depth 0.2 -Total Square Cm 24.2 -Wound/Ulcer Outcome Not Healed -Ulcer Cleansing Rinsed/ Irrigated with Saline -Foul Odor after Cleansing No -Bioengineered Tissue No -Bleeding Controlled with Pressure -Offloading No -Treatment Response Procedure Tolerated Well #10 right heel -Time 09:05 08:45 -Correct Patient Yes Yes -Correct Side, Site, Position Yes Yes -Correct Procedure Yes Yes -Procedure Performed Yes Yes -Type of Procedure Debridement Debridement -Clinical Debridement Subcutaneous Subcutaneous -Post Debridement Size (cm) - Length 0.9 0.6 -Post Debridement Size (cm) - Width 0.4 1 -Post Debridement Size (cm) - Depth 0.1 0.2 -Total Square Cm 0.36 0.6 -Wound/Ulcer Outcome Not Healed Not Healed -Ulcer Cleansing Rinsed/ Rinsed/ Irrigated with Irrigated with Saline Saline -Foul Odor after Cleansing No No -Bioengineered Tissue No No -Topical Lidocaine (%) 4 -Bleeding Controlled with Pressure Pressure -Offloading Yes No -Type of Offloading Camwalker -Treatment Response Procedure Procedure Tolerated Well Tolerated Well #6 L Post -Time 09:06 08:46 -Correct Patient Yes Yes -Correct Side, Site, Position Yes Yes -Correct Procedure Yes Yes -Procedure Performed Yes Yes -Type of Procedure Debridement Debridement -Clinical Debridement Subcutaneous Subcutaneous -Post Debridement Size (cm) - Length 21.1 21 -Post Debridement Size (cm) - Width 1.7 1.9 -Post Debridement Size (cm) - Depth 0.1 0.3 -Total Square Cm 35.87 39.9 -Wound/Ulcer Outcome Not Healed Not Healed -Ulcer Cleansing Rinsed/ Rinsed/ Irrigated with Irrigated with Saline Saline -Foul Odor after Cleansing No No -Bioengineered Tissue No No -Topical Lidocaine (%) 4 -Bleeding Controlled with Pressure Pressure -Offloading Yes No -Treatment Response Procedure Procedure Tolerated Well Tolerated Well #5 R Lat LE -Time 09:07 08:46 -Correct Patient Yes Yes -Correct Side, Site, Position Yes Yes -Correct Procedure Yes Yes -Procedure Performed Yes Yes -Type of Procedure Debridement Debridement -Clinical Debridement Subcutaneous Subcutaneous -Post Debridement Size (cm) - Length 1.9 1.5 -Post Debridement Size (cm) - Width 1.6 1.4 -Post Debridement Size (cm) - Depth 0.2 0.3 -Total Square Cm 3.04 2.10 -Wound/Ulcer Outcome Not Healed Not Healed -Ulcer Cleansing Rinsed/ Rinsed/ Irrigated with Irrigated with Saline Saline -Foul Odor after Cleansing No No -Bioengineered Tissue No No -Topical Lidocaine (%) 4 -Bleeding Controlled with Pressure Pressure -Offloading Yes No -Type of Offloading Camwalker -Treatment Response Procedure Procedure Tolerated Well Tolerated Well #4 R post LE -Time 09:07 08:46 -Correct Patient Yes Yes -Correct Side, Site, Position Yes Yes -Correct Procedure Yes Yes -Procedure Performed Yes Yes -Type of Procedure Debridement Debridement -Clinical Debridement Subcutaneous Subcutaneous -Post Debridement Size (cm) - Length 0.9 0.8 -Post Debridement Size (cm) - Width 0.6 0.6 -Post Debridement Size (cm) - Depth 0.2 0.2 -Total Square Cm 0.54 0.48 -Wound/Ulcer Outcome Not Healed Not Healed -Ulcer Cleansing Rinsed/ Rinsed/ Irrigated with Irrigated with Saline Saline -Foul Odor after Cleansing No No -Bioengineered Tissue No No -Topical Lidocaine (%) 4 -Bleeding Controlled with Pressure Pressure -Offloading No -Type of Offloading Camwalker -Treatment Response Procedure Procedure Tolerated Well Tolerated Well #3 R Med LE -Time 09: 08:47 -Correct Patient Yes Yes -Correct Side, Site, Position Yes Yes -Correct Procedure Yes Yes -Procedure Performed Yes Yes -Type of Procedure Debridement Debridement -Clinical Debridement Subcutaneous Subcutaneous -Post Debridement Size (cm) - Length 2.6 1.8 -Post Debridement Size (cm) - Width 0.7 0.5 -Post Debridement Size (cm) - Depth 0.6 0.4 -Total Square Cm 1.82 0.90 -Wound/Ulcer Outcome Not Healed Not Healed -Ulcer Cleansing Rinsed/ Rinsed/ Irrigated with Irrigated with Saline Saline -Foul Odor after Cleansing No No -Bioengineered Tissue No No -Topical Lidocaine (%) 4 -Bleeding Controlled with Pressure Pressure -Offloading Yes No -Type of Offloading Camwalker -Treatment Response Procedure Procedure Tolerated Well Tolerated Well #2 R [place] Cluster -Time 09: 08:47 -Correct Patient Yes Yes -Correct Side, Site, Position Yes Yes -Correct Procedure Yes Yes -Procedure Performed Yes Yes -Type of Procedure Debridement Debridement -Clinical Debridement Subcutaneous Subcutaneous -Post Debridement Size (cm) - Length 11.6 10.8 -Post Debridement Size (cm) - Width 3.1 3.1 -Post Debridement Size (cm) - Depth 0.1 0.1 -Total Square Cm 35.96 33.48 -Wound/Ulcer Outcome Not Healed Not Healed -Ulcer Cleansing Rinsed/ Rinsed/ Irrigated with Irrigated with Saline Saline -Foul Odor after Cleansing No No -Bioengineered Tissue No No -Topical Lidocaine (%) 4 -Bleeding Controlled with Pressure Pressure -Offloading Yes No -Type of Offloading Camwalker -Treatment Response Procedure Procedure Tolerated Well Tolerated Well #1 R 2nd toe amp/Arch/ Med Ankle -Time 09:09 08:47 -Correct Patient Yes Yes -Correct Side, Site, Position Yes Yes -Correct Procedure Yes Yes -Procedure Performed Yes Yes -Type of Procedure Debridement Debridement -Clinical Debridement Subcutaneous Subcutaneous -Post Debridement Size (cm) - Length 25.3 3 -Post Debridement Size (cm) - Width 2.4 0.4 -Post Debridement Size (cm) - Depth 1.1 0.7 -Total Square Cm 60.72 1.2 -Wound/Ulcer Outcome Not Healed Not Healed -Ulcer Cleansing Rinsed/ Rinsed/ Irrigated with Irrigated with Saline Saline -Foul Odor after Cleansing No No -Bioengineered Tissue No No -Topical Lidocaine (%) 4 -Bleeding Controlled with Pressure Pressure -Offloading Yes No -Type of Offloading Camwalker -Treatment Response Procedure Procedure Tolerated Well Tolerated Well Pain Scale: 0-10 Numeric Is Patient Pain Free? Yes Yes Wound debrided: forefoot Laterality: Right Wound Grade/Stage: grade 3 Type of Debridement: Excisional debridement Anesthesia Used: 5% Lidocaine Gel Depth: in the subcutaneous layer Percentage of wound debrided: 100 Instrument Used: #15 blade - I discussed the continued case with this patient. The left foot ulcer was debrided as noted in the clinical panel. To monitor for local or systemic signs of illness. No infection or necrosis is noted today to bilateral limb. I also encouraged him to continue to use his I crutch walker this week to remain full nonweightbearing to the left lower extremity. To use a surgical shoe to prevent shearing to the recently applied advanced wound care product. To check feet daily. Ok to moisturize other non wound skin daily with urea cream sparingly. To continue to improve sock care. Debridement was performed today as noted in the clinical nursing panel. He tolerated this well. Advanced wound care product, epi fix, was applied today after verbal consent and debridement was performed. He tolerated this well. This was secured in place with Steri-Strips and wound veil. He was advised to leave this dressing intact until follow-up next week. The indications, planned procedure, benefits, risks, and anticipated healing time and management were discussed. This is medically necessary and will significantly optimize his healing in conjunction with traditional wound care measures. Prior authorization will be initiated. All of his questions were answered. To return to clinic in 1 week or call sooner if there are any questions or concerns. Tissue Removed: fibrous, devitalized subcutaneous, biofilm, slough Severity: Fat Layer Exposed Amount of bleeding with debridement: Mild Bleeding Controlled with: Pressure Patient tolerated procedure well - Additional Wound Wound debrided: medial ankle Laterality: Right Wound Grade/Stage: grade 3 Type of Debridement: Excisional debridement Anesthesia Used: 5% Lidocaine Gel Depth: in the subcutaneous layer Percentage of wound debrided: 100 Instrument Used: #15 blade Tissue Removed: fibrous, devitalized subcutaneous, biofilm, slough Severity: Fat Layer Exposed Amount of bleeding with debridement: Mild Bleeding Controlled with: Pressure Patient tolerated procedure: Patient tolerated procedure well - Additional Wound Wound debrided: heel Laterality: Right Wound Grade/Stage: grade 1 Type of Debridement: Excisional debridement Anesthesia Used: 5% Lidocaine Gel Depth: in the subcutaneous layer Percentage of wound debrided: 100 Instrument Used: #15 blade Tissue Removed: fibrous, devitalized subcutaneous, biofilm, slough Severity: Fat Layer Exposed Amount of bleeding with debridement: Mild Bleeding Controlled with: Pressure Patient tolerated procedure: Patient tolerated procedure well - Additional Wound Wound debrided: medial leg Laterality: Right Wound Grade/Stage: grade 1 Type of Debridement: Excisional debridement Anesthesia Used: 5% Lidocaine Gel Depth: in the subcutaneous layer Percentage of wound debrided: 100 Instrument Used: #15 blade Tissue Removed: fibrous, devitalized subcutaneous, biofilm, slough Severity: Fat Layer Exposed Amount of bleeding with debridement: Mild Bleeding Controlled with: Pressure Patient tolerated procedure: Patient tolerated procedure well - Additional Wound Wound debrided: anterior leg Laterality: Right Wound Grade/Stage: grade 1 Type of Debridement: Excisional debridement Anesthesia Used: 5% Lidocaine Gel Depth: in the subcutaneous layer Percentage of wound debrided: 100 Instrument Used: #15 blade Tissue Removed: fibrous, devitalized subcutaneous, biofilm, slough Severity: Fat Layer Exposed Amount of bleeding with debridement: Mild Bleeding Controlled with: Pressure Patient tolerated procedure: Patient tolerated procedure well - Additional Wound Wound debrided: posterior leg Laterality: Left Wound Grade/Stage: grade 2 Type of Debridement: Excisional debridement Anesthesia Used: 5% Lidocaine Gel Depth: in the subcutaneous layer Percentage of wound debrided: 100 Instrument Used: #15 blade Tissue Removed: fibrous, devitalized subcutaneous, biofilm, slough Severity: Fat Layer Exposed Amount of bleeding with debridement: Mild Bleeding Controlled with: Pressure Patient tolerated procedure: Patient tolerated procedure well - Additional Wound Wound debrided: lateral leg Laterality: Left Wound Grade/Stage: grade 1 Type of Debridement: Excisional debridement Anesthesia Used: 5% Lidocaine Gel Depth: in the subcutaneous layer Percentage of wound debrided: 100 Instrument Used: #15 blade Tissue Removed: fibrous, devitalized subcutaneous, biofilm, slough Severity: Fat Layer Exposed Amount of bleeding with debridement: Mild Bleeding Controlled with: Pressure Patient tolerated procedure: Patient tolerated procedure well - Additional Wound Wound debrided: posterior leg Laterality: Right Wound Grade/Stage: grade 1 Type of Debridement: Excisional debridement Anesthesia Used: 5% Lidocaine Gel Depth: in the subcutaneous layer Percentage of wound debrided: 100 Instrument Used: #15 blade Tissue Removed: fibrous, devitalized subcutaneous, biofilm, slough Severity: Fat Layer Exposed Amount of bleeding with debridement: Mild Bleeding Controlled with: Pressure Patient tolerated procedure: Patient tolerated procedure well - Additional Wound Wound debrided: lateral leg Laterality: Right Wound Grade/Stage: grade 1 Type of Debridement: Excisional debridement Anesthesia Used: 5% Lidocaine Gel Depth: in the subcutaneous layer Percentage of wound debrided: 100 Instrument Used: #15 blade Tissue Removed: fibrous, devitalized subcutaneous, biofilm, slough Severity: Fat Layer Exposed Amount of bleeding with debridement: Mild Bleeding Controlled with: Pressure Patient tolerated procedure: Patient tolerated procedure well Assessment/Plan Active Problems (Last Updated 09/28/18 @ 12:41 by Geraldine Steele) Ulcer of right foot with fat layer exposed (Chronic) Delayed wound healing (Chronic) 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) Tobacco dependence due to cigarettes (Chronic) Ulcer of right lower extremity with fat layer exposed (Chronic) Ulcer of left lower extremity with fat layer exposed (Chronic) 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 Diabetic neuropathy. Malnutrition suspected. 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 Delayed healing. Gait impairment and fall risk. Other comorbidities, right knee ulcer, tendon exposed (Dr. Gilbert managed), left knee ulcer (Dr. Gilbert managed) Plan: I reviewed and discussed his case with the patient and the patient's . Subcutaneous debridements were performed as noted in the clinical panel. I Recommended changing the dressings daily with intermediate facility staff assistance with santyl to right knee (per Dr. Gilbert), and aquacel ag to the leg ulcers, santyl to devitalized tendon zones. To d/c wound vac at this time for the upcoming week. It is noted that this foot site has some bridging epithelialization noted to the center and is now broken into 2 regions. No infection is noted to any of the aformentioned lower extremity debridement sites. The ulcer sites have improved quality with granulation tissue. He has completed a 6 weeks of IV antibiotic of Unasyn. I recommend he avoids laying directly on his wounds to reduce pressure, and I was concerned about his perfusion to his limbs. He had an arterial Doppler scheduled with Dr. Morgan's staff on August 02, 2018 and overall perfusion was confirmed; additional intervention or workup was not recommended. It is also noted that he did have venous Doppler performed with reflux evaluation. He did not have evidence of deep venous thrombosis or venous insufficiency at that time; the vessels were compressible. To continue with nutritional supplementation optimize healing; I recommend Juan. I recommend he sustained from smoking and alcohol activities to optimize healing as well. His workup for vasculitis and underlying autoimmune disorder is also pending. A punch biopsy was sent during his last surgical intervention on June 10 and this demonstrated inflammatory changes without malignancy. He had initial screening labs and so far he has a negative RA titer, HL of the 27, KEVIN, anti-CCP, and rheumatoid factor. Several his antibody screenings were not reportable. I have communicated this workup with his current managing physician at [facility], Dr. Perdomo, to see if additional recommendations or workup is indicated. He is home now. I will further forward this information along to his primary care physician, Dr. Sparks. Hyperbaric oxygen therapy was recommended and it is noted his ejection fraction was most recently 50%. He refuses at this time. Dr. Gilbert continues to manage his bilateral knee ulcers including debridements and traditional wound care plan. I recommend same-day surgery versa jet debridement with application of advanced wound care products including epi cord, amnio fill, and amnio fix product line derived from amniotic cord cells and umbilical cord cells. The benefits, indications, planned procedure, possible benefits risks and anticipated healing time is were discussed. He understands this is a staged procedure and often serial applications are required. He obtained his clearance from Dr. Sparks and an additional Dr. Ponce cardiac evaluation preoperative was recommended. I reviewed the urgency with healing these wounds in a timely manner and encouraged him to reconsider this. He refuses at this time. I answered all of his questions. Additional amputation of the right foot is not planned due to his fairly nonambulatory status. Smoking cessation was discussed in detail again today and compliance is imperative to optimize healing of surgical success. I recommend further follow-up at the wound care center 1 week with me, or call sooner if he has any questions. Compliance at this advanced wound care center was reviewed. He understands additional palliative care programs are an option if he does not wish to proceed with advanced wound care opportunities that has been recommended.
--- NOTE | 2018-11-02 10:34 | PCM.WC.PN ---
(1) Skin ulcer of left knee with fat layer exposed Status: Chronic Current Visit: Yes Code(s): L97.822 - Non-pressure chronic ulcer of other part of left lower leg with fat layer exposed (2) Skin ulcer of right knee with fat layer exposed Status: Chronic Current Visit: Yes Code(s): L97.812 - Non-pressure chronic ulcer of other part of right lower leg with fat layer exposed Type of Wound Chief Complaint: right and left Leg ulcers and right foot ulcer History of Wound: Mr. Arguello is a 63-year-old male with multiple comorbidities follows up for delayed healing ulcers to the right foot as well as bilateral legs. It is noted he previously had widespread debridements and fasciotomies performed to bilateral lower extremities secondary to life-threatening and limb threatening infection; this was previously performed at [facility]. He continues to follow with Dr. Gilebrt for her knee ulcers, and I saw him today for his other ulcer sites. the left knee ulcer site has healed. He has been applying Aquacel to leg ulcers, and wound VAC to right foot defect with quality and size reduction improvement. He denies chills, fever or otherwise feeling of unwell. He presents today with his . He still refuses advanced wound care product application. He refuses hyperbaric oxygen therapy treatment. He continues to refuse surgical intervention. He is slightly decreased his cigarette use. Progress of Wound: No new concerns at this time. Has completed course of antibiotic. - Physical Exam Vital Signs Temp Pulse Resp BP 96.9 F L 83 16 123/84 H 11/02/18 08:10 11/02/18 08:10 11/02/18 08:10 11/02/18 08:10 General: Alert, Oriented x3, Cooperative, No apparent distress HEENT: Atraumatic, Normocephalic Oral: Moist Mucosa Neck: Supple Lungs: Normal air movement Abdomen: Non Tender Extremities: No cyanosis Skin: Ulcer/ Wound Wound Measurements and Assessment WC - Nurse 1 - General Ulcer Measurement Start: 10/26/18 08:06 Freq: Status: Active Protocol: Activity Type Activity Date Activity User E-Sign Co-Sign Detail Recorded Client Recorded Date Recorded By Document 11/02/18 08:10 CS [id number] 11/02/18 08:25 CS 11/02/18 08:10 Wound Center Nurse 1 [Ulcer Assessment] #11 RIGHT MEDIAL FOOT -Combined with other wound No -Current Size (cm) - Length 12 -Current Size (cm) - Width 2 -Current Size (cm) - Depth 0.2 -Total Square Cm 24 -Photo Taken No -Epithelialization None Present -Tunneling No -Undermining/Tunneling No -Circular Undermining No -Temperature (Lisa-wound Skin No Abnormality Appearance) (Pt Warm) -Ulcer Cleansing Rinsed/ Irrigated with Saline -Foul Odor after Cleansing No -Anesthetic Used 4% Lidocaine Solution #10 right heel -Combined with other wound No -Current Size (cm) - Length 0.6 -Current Size (cm) - Width 0.9 -Current Size (cm) - Depth 0.2 -Total Square Cm 0.54 -Photo Taken No -Epithelialization None Present -Tunneling No -Undermining/Tunneling No -Circular Undermining No -Exudate Amt None Present (0 %) -Temperature (Lisa-wound Skin No Abnormality Appearance) (Pt Warm) -Tenderness on Palpation (Lisa-wound No Skin Appearance) -Ulcer Cleansing Rinsed/ Irrigated with Saline -Foul Odor after Cleansing No -Anesthetic Used 4% Lidocaine Solution 9.L knee -Combined with other wound No -Current Size (cm) - Length 0.1 -Current Size (cm) - Width 0.1 -Current Size (cm) - Depth 0.1 -Total Square Cm 0.01 -Photo Taken No -Temperature (Lisa-wound Skin No Abnormality Appearance) (Pt Warm) -Tenderness on Palpation (Lisa-wound No Skin Appearance) -Ulcer Cleansing Rinsed/ Irrigated with Saline -Foul Odor after Cleansing No -Anesthetic Used 4% Lidocaine Solution #8 r Knee -Combined with other wound No -Current Size (cm) - Length 1 -Current Size (cm) - Width 0.8 -Current Size (cm) - Depth 0.6 -Total Square Cm 0.8 -Photo Taken No -Circular Undermining Yes -Temperature (Lisa-wound Skin No Abnormality Appearance) (Pt Warm) -Tenderness on Palpation (Lisa-wound No Skin Appearance) -Ulcer Cleansing Rinsed/ Irrigated with Saline -Foul Odor after Cleansing No -Anesthetic Used 4% Lidocaine Solution #6 L Post -Combined with other wound No -Current Size (cm) - Length 21 -Current Size (cm) - Width 1.8 -Current Size (cm) - Depth 0.3 -Total Square Cm 37.8 -Photo Taken No -Epithelialization None Present -Tunneling No -Undermining/Tunneling No -Temperature (Lisa-wound Skin No Abnormality Appearance) (Pt Warm) -Tenderness on Palpation (Lisa-wound No Skin Appearance) -Ulcer Cleansing Rinsed/ Irrigated with Saline -Foul Odor after Cleansing No -Anesthetic Used 4% Lidocaine Solution #5 R Lat LE -Combined with other wound No -Current Size (cm) - Length 1.5 -Current Size (cm) - Width 1.3 -Current Size (cm) - Depth 0.3 -Total Square Cm 1.95 -Photo Taken No -Temperature (Lisa-wound Skin No Abnormality Appearance) (Pt Warm) -Tenderness on Palpation (Lisa-wound No Skin Appearance) -Ulcer Cleansing Rinsed/ Irrigated with Saline -Foul Odor after Cleansing No -Anesthetic Used 4% Lidocaine Solution #4 R post LE -Combined with other wound No -Current Size (cm) - Length 0.8 -Current Size (cm) - Width 0.5 -Current Size (cm) - Depth 0.2 -Total Square Cm 0.40 -Temperature (Lisa-wound Skin No Abnormality Appearance) (Pt Warm) -Tenderness on Palpation (Lisa-wound No Skin Appearance) -Ulcer Cleansing Rinsed/ Irrigated with Saline -Foul Odor after Cleansing No -Anesthetic Used 4% Lidocaine Solution #3 R Med LE -Combined with other wound No -Current Size (cm) - Length 1.7 -Current Size (cm) - Width 0.4 -Current Size (cm) - Depth 0.4 -Total Square Cm 0.68 -Photo Taken No -Epithelialization None Present -Temperature (Lisa-wound Skin No Abnormality Appearance) (Pt Warm) -Tenderness on Palpation (Lisa-wound No Skin Appearance) -Ulcer Cleansing Rinsed/ Irrigated with Saline -Foul Odor after Cleansing No -Anesthetic Used 4% Lidocaine Solution #2 R [place] Cluster -Combined with other wound No -Current Size (cm) - Length 10.8 -Current Size (cm) - Width 3 -Current Size (cm) - Depth 0.1 -Total Square Cm 32.4 -Temperature (Lisa-wound Skin No Abnormality Appearance) (Pt Warm) -Tenderness on Palpation (Lisa-wound No Skin Appearance) -Ulcer Cleansing Rinsed/ Irrigated with Saline -Foul Odor after Cleansing No -Anesthetic Used 4% Lidocaine Solution #1 R 2nd toe amp/Arch/ Med Ankle -Combined with other wound No -Current Size (cm) - Length 3 -Current Size (cm) - Width 0.3 -Current Size (cm) - Depth 0.7 -Total Square Cm 0.9 -Photo Taken No -Epithelialization None Present -Tunneling No -Undermining/Tunneling No -Circular Undermining No -Temperature (Lisa-wound Skin No Abnormality Appearance) (Pt Warm) -Tenderness on Palpation (Lisa-wound No Skin Appearance) -Ulcer Cleansing Rinsed/ Irrigated with Saline -Foul Odor after Cleansing No -Anesthetic Used 4% Lidocaine Solution [Edema Assessment] -Lower Limb Edema Present NA WC - Nurse 2 - General Ulcer CM Notes Start: 10/26/18 08:06 Freq: Status: Active Protocol: Activity Type Activity Date Activity User E-Sign Co-Sign Detail Recorded Client Recorded Date Recorded By Document 11/02/18 08:44 JF [id number] 11/02/18 08:51 JF Document 11/02/18 09:34 MW [id number] 11/02/18 09:35 MW 11/02/18 11/02/18 08:44 09:34 Wound Center Nurse 2 [Procedure/Treatment] #11 RIGHT MEDIAL FOOT -Time 08:44 -Correct Patient Yes -Correct Side, Site, Position Yes -Correct Procedure Yes -Procedure Performed Yes -Type of Procedure Debridement -Clinical Debridement Subcutaneous -Post Debridement Size (cm) - Length 12.1 -Post Debridement Size (cm) - Width 2 -Post Debridement Size (cm) - Depth 0.2 -Total Square Cm 24.2 -Wound/Ulcer Outcome Not Healed -Ulcer Cleansing Rinsed/ Irrigated with Saline -Foul Odor after Cleansing No -Bioengineered Tissue No -Bleeding Controlled with Pressure -Offloading No -Treatment Response Procedure Tolerated Well #10 right heel -Time 08:45 -Correct Patient Yes -Correct Side, Site, Position Yes -Correct Procedure Yes -Procedure Performed Yes -Type of Procedure Debridement -Clinical Debridement Subcutaneous -Post Debridement Size (cm) - Length 0.6 -Post Debridement Size (cm) - Width 1 -Post Debridement Size (cm) - Depth 0.2 -Total Square Cm 0.6 -Wound/Ulcer Outcome Not Healed -Ulcer Cleansing Rinsed/ Irrigated with Saline -Foul Odor after Cleansing No -Bioengineered Tissue No -Bleeding Controlled with Pressure -Offloading No -Treatment Response Procedure Tolerated Well 9.L knee -Time 09:34 -Correct Patient Yes -Correct Side, Site, Position Yes -Correct Procedure Yes -Procedure Performed No -Post Debridement Size (cm) - Length 0.1 -Post Debridement Size (cm) - Width 0.1 -Post Debridement Size (cm) - Depth 0.1 -Total Square Cm 0.01 -Wound/Ulcer Outcome Not Healed -Ulcer Cleansing Rinsed/ Irrigated with Saline -Foul Odor after Cleansing No -Bioengineered Tissue No -Bleeding Controlled with NA -Offloading No -Treatment Response Procedure Tolerated Well #8 r Knee -Time 09:34 -Correct Patient Yes -Correct Side, Site, Position Yes -Correct Procedure Yes -Procedure Performed Yes -Type of Procedure Debridement -Clinical Debridement Subcutaneous -Post Debridement Size (cm) - Length 1.2 -Post Debridement Size (cm) - Width 1.5 -Post Debridement Size (cm) - Depth 0.3 -Total Square Cm 1.80 -Wound/Ulcer Outcome Not Healed -Ulcer Cleansing Rinsed/ Irrigated with Saline -Foul Odor after Cleansing No -Bioengineered Tissue No -Bleeding Controlled with Pressure -Offloading No -Treatment Response Procedure Tolerated Well #6 L Post -Time 08:46 -Correct Patient Yes -Correct Side, Site, Position Yes -Correct Procedure Yes -Procedure Performed Yes -Type of Procedure Debridement -Clinical Debridement Subcutaneous -Post Debridement Size (cm) - Length 21 -Post Debridement Size (cm) - Width 1.9 -Post Debridement Size (cm) - Depth 0.3 -Total Square Cm 39.9 -Wound/Ulcer Outcome Not Healed -Ulcer Cleansing Rinsed/ Irrigated with Saline -Foul Odor after Cleansing No -Bioengineered Tissue No -Bleeding Controlled with Pressure -Offloading No -Treatment Response Procedure Tolerated Well #5 R Lat LE -Time 08:46 -Correct Patient Yes -Correct Side, Site, Position Yes -Correct Procedure Yes -Procedure Performed Yes -Type of Procedure Debridement -Clinical Debridement Subcutaneous -Post Debridement Size (cm) - Length 1.5 -Post Debridement Size (cm) - Width 1.4 -Post Debridement Size (cm) - Depth 0.3 -Total Square Cm 2.10 -Wound/Ulcer Outcome Not Healed -Ulcer Cleansing Rinsed/ Irrigated with Saline -Foul Odor after Cleansing No -Bioengineered Tissue No -Bleeding Controlled with Pressure -Offloading No -Treatment Response Procedure Tolerated Well #4 R post LE -Time 08:46 -Correct Patient Yes -Correct Side, Site, Position Yes -Correct Procedure Yes -Procedure Performed Yes -Type of Procedure Debridement -Clinical Debridement Subcutaneous -Post Debridement Size (cm) - Length 0.8 -Post Debridement Size (cm) - Width 0.6 -Post Debridement Size (cm) - Depth 0.2 -Total Square Cm 0.48 -Wound/Ulcer Outcome Not Healed -Ulcer Cleansing Rinsed/ Irrigated with Saline -Foul Odor after Cleansing No -Bioengineered Tissue No -Bleeding Controlled with Pressure -Offloading No -Treatment Response Procedure Tolerated Well #3 R Med LE -Time 08:47 -Correct Patient Yes -Correct Side, Site, Position Yes -Correct Procedure Yes -Procedure Performed Yes -Type of Procedure Debridement -Clinical Debridement Subcutaneous -Post Debridement Size (cm) - Length 1.8 -Post Debridement Size (cm) - Width 0.5 -Post Debridement Size (cm) - Depth 0.4 -Total Square Cm 0.90 -Wound/Ulcer Outcome Not Healed -Ulcer Cleansing Rinsed/ Irrigated with Saline -Foul Odor after Cleansing No -Bioengineered Tissue No -Bleeding Controlled with Pressure -Offloading No -Treatment Response Procedure Tolerated Well #2 R [place] Cluster -Time 08:47 -Correct Patient Yes -Correct Side, Site, Position Yes -Correct Procedure Yes -Procedure Performed Yes -Type of Procedure Debridement -Clinical Debridement Subcutaneous -Post Debridement Size (cm) - Length 10.8 -Post Debridement Size (cm) - Width 3.1 -Post Debridement Size (cm) - Depth 0.1 -Total Square Cm 33.48 -Wound/Ulcer Outcome Not Healed -Ulcer Cleansing Rinsed/ Irrigated with Saline -Foul Odor after Cleansing No -Bioengineered Tissue No -Bleeding Controlled with Pressure -Offloading No -Treatment Response Procedure Tolerated Well #1 R 2nd toe amp/Arch/ Med Ankle -Time 08:47 -Correct Patient Yes -Correct Side, Site, Position Yes -Correct Procedure Yes -Procedure Performed Yes -Type of Procedure Debridement -Clinical Debridement Subcutaneous -Post Debridement Size (cm) - Length 3 -Post Debridement Size (cm) - Width 0.4 -Post Debridement Size (cm) - Depth 0.7 -Total Square Cm 1.2 -Wound/Ulcer Outcome Not Healed -Ulcer Cleansing Rinsed/ Irrigated with Saline -Foul Odor after Cleansing No -Bioengineered Tissue No -Bleeding Controlled with Pressure -Offloading No -Treatment Response Procedure Tolerated Well [See Physician Procedure note for Specifics] Pain Scale: 0-10 Numeric [Pain] -Is Patient Pain Free? Yes Musculoskeletal: No Muscle Wasting Neurological: Cranial nerves II-XII grossly intact Psych/Mental Status: Normal Affect Debridement Note Post-Debridement Measurements/Treatment WC - Nurse 2 - General Ulcer CM Notes Start: 10/26/18 08:06 Freq: Status: Active Protocol: Activity Type Activity Date Activity User E-Sign Co-Sign Detail Recorded Client Recorded Date Recorded By Document 10/26/18 09:03 TM [id number] 10/26/18 09:10 TM Document 11/02/18 08:44 JF [id number] 11/02/18 08:51 JF Document 11/02/18 09:34 MW [id number] 11/02/18 09:35 MW 10/26/18 11/02/18 11/02/18 09:03 08:44 09:34 Wound Center Nurse 2 #11 RIGHT MEDIAL FOOT -Time 08:44 -Correct Patient Yes -Correct Side, Site, Position Yes -Correct Procedure Yes -Procedure Performed Yes -Type of Procedure Debridement -Clinical Debridement Subcutaneous -Post Debridement Size (cm) - Length 12.1 -Post Debridement Size (cm) - Width 2 -Post Debridement Size (cm) - Depth 0.2 -Total Square Cm 24.2 -Wound/Ulcer Outcome Not Healed -Ulcer Cleansing Rinsed/ Irrigated with Saline -Foul Odor after Cleansing No -Bioengineered Tissue No -Bleeding Controlled with Pressure -Offloading No -Treatment Response Procedure Tolerated Well #10 right heel -Time 09:05 08:45 -Correct Patient Yes Yes -Correct Side, Site, Position Yes Yes -Correct Procedure Yes Yes -Procedure Performed Yes Yes -Type of Procedure Debridement Debridement -Clinical Debridement Subcutaneous Subcutaneous -Post Debridement Size (cm) - Length 0.9 0.6 -Post Debridement Size (cm) - Width 0.4 1 -Post Debridement Size (cm) - Depth 0.1 0.2 -Total Square Cm 0.36 0.6 -Wound/Ulcer Outcome Not Healed Not Healed -Ulcer Cleansing Rinsed/ Rinsed/ Irrigated with Irrigated with Saline Saline -Foul Odor after Cleansing No No -Bioengineered Tissue No No -Topical Lidocaine (%) 4 -Bleeding Controlled with Pressure Pressure -Offloading Yes No -Type of Offloading Camwalker -Treatment Response Procedure Procedure Tolerated Well Tolerated Well 9.L knee -Time 09:34 -Correct Patient Yes -Correct Side, Site, Position Yes -Correct Procedure Yes -Procedure Performed No -Post Debridement Size (cm) - Length 0.1 -Post Debridement Size (cm) - Width 0.1 -Post Debridement Size (cm) - Depth 0.1 -Total Square Cm 0.01 -Wound/Ulcer Outcome Not Healed -Ulcer Cleansing Rinsed/ Irrigated with Saline -Foul Odor after Cleansing No -Bioengineered Tissue No -Bleeding Controlled with NA -Offloading No -Treatment Response Procedure Tolerated Well #8 r Knee -Time 09:34 -Correct Patient Yes -Correct Side, Site, Position Yes -Correct Procedure Yes -Procedure Performed Yes -Type of Procedure Debridement -Clinical Debridement Subcutaneous -Post Debridement Size (cm) - Length 1.2 -Post Debridement Size (cm) - Width 1.5 -Post Debridement Size (cm) - Depth 0.3 -Total Square Cm 1.80 -Wound/Ulcer Outcome Not Healed -Ulcer Cleansing Rinsed/ Irrigated with Saline -Foul Odor after Cleansing No -Bioengineered Tissue No -Bleeding Controlled with Pressure -Offloading No -Treatment Response Procedure Tolerated Well #6 L Post -Time 09:06 08:46 -Correct Patient Yes Yes -Correct Side, Site, Position Yes Yes -Correct Procedure Yes Yes -Procedure Performed Yes Yes -Type of Procedure Debridement Debridement -Clinical Debridement Subcutaneous Subcutaneous -Post Debridement Size (cm) - Length 21.1 21 -Post Debridement Size (cm) - Width 1.7 1.9 -Post Debridement Size (cm) - Depth 0.1 0.3 -Total Square Cm 35.87 39.9 -Wound/Ulcer Outcome Not Healed Not Healed -Ulcer Cleansing Rinsed/ Rinsed/ Irrigated with Irrigated with Saline Saline -Foul Odor after Cleansing No No -Bioengineered Tissue No No -Topical Lidocaine (%) 4 -Bleeding Controlled with Pressure Pressure -Offloading Yes No -Treatment Response Procedure Procedure Tolerated Well Tolerated Well #5 R Lat LE -Time 09: 08:46 -Correct Patient Yes Yes -Correct Side, Site, Position Yes Yes -Correct Procedure Yes Yes -Procedure Performed Yes Yes -Type of Procedure Debridement Debridement -Clinical Debridement Subcutaneous Subcutaneous -Post Debridement Size (cm) - Length 1.9 1.5 -Post Debridement Size (cm) - Width 1.6 1.4 -Post Debridement Size (cm) - Depth 0.2 0.3 -Total Square Cm 3.04 2.10 -Wound/Ulcer Outcome Not Healed Not Healed -Ulcer Cleansing Rinsed/ Rinsed/ Irrigated with Irrigated with Saline Saline -Foul Odor after Cleansing No No -Bioengineered Tissue No No -Topical Lidocaine (%) 4 -Bleeding Controlled with Pressure Pressure -Offloading Yes No -Type of Offloading Camwalker -Treatment Response Procedure Procedure Tolerated Well Tolerated Well #4 R post LE -Time 09: 08:46 -Correct Patient Yes Yes -Correct Side, Site, Position Yes Yes -Correct Procedure Yes Yes -Procedure Performed Yes Yes -Type of Procedure Debridement Debridement -Clinical Debridement Subcutaneous Subcutaneous -Post Debridement Size (cm) - Length 0.9 0.8 -Post Debridement Size (cm) - Width 0.6 0.6 -Post Debridement Size (cm) - Depth 0.2 0.2 -Total Square Cm 0.54 0.48 -Wound/Ulcer Outcome Not Healed Not Healed -Ulcer Cleansing Rinsed/ Rinsed/ Irrigated with Irrigated with Saline Saline -Foul Odor after Cleansing No No -Bioengineered Tissue No No -Topical Lidocaine (%) 4 -Bleeding Controlled with Pressure Pressure -Offloading No -Type of Offloading Camwalker -Treatment Response Procedure Procedure Tolerated Well Tolerated Well #3 R [facility] LE -Time 09:08 08:47 -Correct Patient Yes Yes -Correct Side, Site, Position Yes Yes -Correct Procedure Yes Yes -Procedure Performed Yes Yes -Type of Procedure Debridement Debridement -Clinical Debridement Subcutaneous Subcutaneous -Post Debridement Size (cm) - Length 2.6 1.8 -Post Debridement Size (cm) - Width 0.7 0.5 -Post Debridement Size (cm) - Depth 0.6 0.4 -Total Square Cm 1.82 0.90 -Wound/Ulcer Outcome Not Healed Not Healed -Ulcer Cleansing Rinsed/ Rinsed/ Irrigated with Irrigated with Saline Saline -Foul Odor after Cleansing No No -Bioengineered Tissue No No -Topical Lidocaine (%) 4 -Bleeding Controlled with Pressure Pressure -Offloading Yes No -Type of Offloading Camwalker -Treatment Response Procedure Procedure Tolerated Well Tolerated Well #2 R [place] Cluster -Time 09:09 08:47 -Correct Patient Yes Yes -Correct Side, Site, Position Yes Yes -Correct Procedure Yes Yes -Procedure Performed Yes Yes -Type of Procedure Debridement Debridement -Clinical Debridement Subcutaneous Subcutaneous -Post Debridement Size (cm) - Length 11.6 10.8 -Post Debridement Size (cm) - Width 3.1 3.1 -Post Debridement Size (cm) - Depth 0.1 0.1 -Total Square Cm 35.96 33.48 -Wound/Ulcer Outcome Not Healed Not Healed -Ulcer Cleansing Rinsed/ Rinsed/ Irrigated with Irrigated with Saline Saline -Foul Odor after Cleansing No No -Bioengineered Tissue No No -Topical Lidocaine (%) 4 -Bleeding Controlled with Pressure Pressure -Offloading Yes No -Type of Offloading Camwalker -Treatment Response Procedure Procedure Tolerated Well Tolerated Well #1 R 2nd toe amp/Arch/ Med Ankle -Time 09:09 08:47 -Correct Patient Yes Yes -Correct Side, Site, Position Yes Yes -Correct Procedure Yes Yes -Procedure Performed Yes Yes -Type of Procedure Debridement Debridement -Clinical Debridement Subcutaneous Subcutaneous -Post Debridement Size (cm) - Length 25.3 3 -Post Debridement Size (cm) - Width 2.4 0.4 -Post Debridement Size (cm) - Depth 1.1 0.7 -Total Square Cm 60.72 1.2 -Wound/Ulcer Outcome Not Healed Not Healed -Ulcer Cleansing Rinsed/ Rinsed/ Irrigated with Irrigated with Saline Saline -Foul Odor after Cleansing No No -Bioengineered Tissue No No -Topical Lidocaine (%) 4 -Bleeding Controlled with Pressure Pressure -Offloading Yes No -Type of Offloading Camwalker -Treatment Response Procedure Procedure Tolerated Well Tolerated Well Pain Scale: 0-10 Numeric Is Patient Pain Free? Yes Yes Wound debrided: Right knee Wound Grade/Stage: Stage III Type of Debridement: Excisional debridement Anesthesia Used: 4% Lidocaine Solution Depth: Down to and including healthy tissue, in the subcutaneous layer Percentage of wound debrided: 100 Instrument Used: 7mm curette Tissue Removed: Slough and devitalized tissue Severity: Fat Layer Exposed Amount of bleeding with debridement: Mild Bleeding Controlled with: Pressure Patient tolerated procedure well Assessment/Plan Active Problems (Last Updated 09/28/18 @ 12:41 by Geraldine Steele) Ulcer of right foot with fat layer exposed (Chronic) Skin ulcer of right knee with fat layer exposed (Chronic) Skin ulcer of left knee with fat layer exposed (Chronic) Delayed wound healing (Chronic) 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) Tobacco dependence due to cigarettes (Chronic) Ulcer of right lower extremity with fat layer exposed (Chronic) Ulcer of left lower extremity with fat layer exposed (Chronic) 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 Diabetic neuropathy. Malnutrition suspected. 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 Delayed healing. Gait impairment and fall risk. Other comorbidities, right knee ulcer, tendon exposed (Dr. Gilbert managed), left knee ulcer (Dr. Gilbert managed) Plan: Left knee with minimal scabbing left. Right knee with no significant improvement however better granulation tissue. Debridement done as documented above. Procedure was well-tolerated. Continue Promogran with Adaptic over top and change every third day. Adaptic only to left lower extremity/knee. Change daily. Elevate lower extremities when seated in bed. Increased protein intake recommended. Other wound care as per Dr. Gruber. All the questions were answered and advised to call with any questions or concerns. Follow-up in 1 week. This note was generated with [employer] dictation software. It may contain incorrect words, spelling, and punctuation that were not noted in checking the note before signing.
[2018-11-09 08:06] VITALS: BP 142/69; PULSE 114; RESP 20; TEMP 35.7
--- NOTE | 2018-11-09 09:21 | PCM.WC.PN ---
(1) Skin ulcer of left knee with fat layer exposed Status: Chronic Current Visit: Yes Code(s): L97.822 - Non-pressure chronic ulcer of other part of left lower leg with fat layer exposed (2) Skin ulcer of right knee with fat layer exposed Status: Chronic Current Visit: Yes Code(s): L97.812 - Non-pressure chronic ulcer of other part of right lower leg with fat layer exposed Type of Wound Chief Complaint: right and left Leg ulcers and right foot ulcer History of Wound: Mr. Arguello is a 63-year-old male with multiple comorbidities follows up for delayed healing ulcers to the right foot as well as bilateral legs. It is noted he previously had widespread debridements and fasciotomies performed to bilateral lower extremities secondary to life-threatening and limb threatening infection; this was previously performed at [facility]. He continues to follow with Dr. Gilbert for her knee ulcers, and I saw him today for his other ulcer sites. the left knee ulcer site has healed. He has been applying Aquacel to leg ulcers, and wound VAC to right foot defect with quality and size reduction improvement. He denies chills, fever or otherwise feeling of unwell. He presents today with his . He still refuses advanced wound care product application. He refuses hyperbaric oxygen therapy treatment. He continues to refuse surgical intervention. He is slightly decreased his cigarette use. Progress of Wound: Left knee is healed. Right is improving. - Physical Exam Vital Signs Temp Pulse Resp BP 96.3 F L 114 H 20 H 142/69 H 11/09/18 08:06 11/09/18 08:06 11/09/18 08:06 11/09/18 08:06 General: Alert, Oriented x3, Cooperative, No apparent distress HEENT: Atraumatic Oral: Moist Mucosa Neck: Supple Lungs: Normal air movement Abdomen: Non Tender Skin: Ulcer/ Wound Wound Measurements and Assessment WC - Nurse 1 - General Ulcer Measurement Start: 10/26/18 08:06 Freq: Status: Active Protocol: Activity Type Activity Date Activity User E-Sign Co-Sign Detail Recorded Client Recorded Date Recorded By Document 11/09/18 08:06 DL [id number] 11/09/18 08:35 DL 11/09/18 08:06 Wound Center Nurse 1 [Ulcer Assessment] #11 RIGHT MEDIAL FOOT -Current Size (cm) - Length 12.5 -Current Size (cm) - Width 2 -Current Size (cm) - Depth 0.5 -Total Square Cm 25.0 -Photo Taken No -Exudate Amt Medium (34-66%) -Exudate Type Serosanguineous -Wound Margin Thickened & Rolled Under -Granulation Amt Medium (34-66%) -Granulation Quality [place] Red -Necrosis Amt Medium (34-66%) -Necrotic Tissue Type Adherent Slough -Structure Exposed N/A -Texture (Lisa-wound Skin Appearance) Localized Edema Scarring -Moisture (Lisa-wound Skin Appearance No Abnormality ) -Color (Lisa-wound Skin Appearance) Hemosiderin Staining -Temperature (Lisa-wound Skin No Abnormality Appearance) (Pt Warm) -Tenderness on Palpation (Lisa-wound No Skin Appearance) -Ulcer Cleansing Wound Cleanser -Foul Odor after Cleansing No -Anesthetic Used 4% Lidocaine Solution #10 right heel -Current Size (cm) - Length 0.1 -Current Size (cm) - Width 0.1 -Current Size (cm) - Depth 0.1 -Total Square Cm 0.01 -Photo Taken No -Exudate Amt None Present (0 %) -Wound Margin Thickened -Granulation Amt Large (67-100%) -Granulation Quality Pale -Necrosis Amt None Present (0 %) -Structure Exposed N/A -Texture (Lisa-wound Skin Appearance) Scarring -Moisture (Lisa-wound Skin Appearance Dry/Scaly ) -Color (Lisa-wound Skin Appearance) Hemosiderin Staining -Temperature (Lisa-wound Skin No Abnormality Appearance) (Pt Warm) -Tenderness on Palpation (Lisa-wound No Skin Appearance) -Ulcer Cleansing Wound Cleanser -Foul Odor after Cleansing No -Anesthetic Used 4% Lidocaine Solution 9.L knee -Current Size (cm) - Length 0 -Current Size (cm) - Width 0 -Current Size (cm) - Depth 0 -Total Square Cm 0 -Photo Taken Yes -Exudate Amt None Present (0 %) -Wound Margin Flat & Intact -Granulation Amt Large (67-100%) -Granulation Quality Pale Crownpoint -Necrosis Amt None Present (0 %) -Structure Exposed N/A -Texture (Lisa-wound Skin Appearance) Scarring -Moisture (Lisa-wound Skin Appearance No Abnormality ) -Color (Lisa-wound Skin Appearance) Mottled -Temperature (Lisa-wound Skin No Abnormality Appearance) (Pt Warm) -Tenderness on Palpation (Lisa-wound No Skin Appearance) -Ulcer Cleansing Wound Cleanser -Foul Odor after Cleansing No -Anesthetic Used 4% Lidocaine Solution #8 r Knee -Current Size (cm) - Length 0.9 -Current Size (cm) - Width 1 -Current Size (cm) - Depth 0.3 -Total Square Cm 0.9 -Photo Taken No -Maximum Distance #2 (cm) 0.2 -Circular Undermining Yes -Exudate Amt Small (1-33%) -Exudate Type Serosanguineous -Wound Margin Thickened & Rolled Under -Granulation Amt Small (1-33%) -Granulation Quality Crownpoint -Necrosis Amt Large (67-100%) -Necrotic Tissue Type Adherent Slough -Structure Exposed N/A -Texture (Lisa-wound Skin Appearance) Scarring -Moisture (Lisa-wound Skin Appearance Dry/Scaly ) -Color (Lisa-wound Skin Appearance) Mottled Rubor -Temperature (Lisa-wound Skin No Abnormality Appearance) (Pt Warm) -Tenderness on Palpation (Lisa-wound No Skin Appearance) -Ulcer Cleansing Wound Cleanser -Foul Odor after Cleansing No -Anesthetic Used 4% Lidocaine Solution #6 L Post -Current Size (cm) - Length 21 -Current Size (cm) - Width 2 -Current Size (cm) - Depth 0.5 -Total Square Cm 42 -Photo Taken No -Exudate Amt Small (1-33%) -Exudate Type Serosanguineous -Wound Margin Thickened & Rolled Under -Granulation Amt Medium (34-66%) -Granulation Quality Crownpoint -Necrosis Amt Medium (34-66%) -Necrotic Tissue Type Adherent Slough -Structure Exposed N/A -Texture (Lisa-wound Skin Appearance) Scarring -Moisture (Lisa-wound Skin Appearance Dry/Scaly ) -Color (Lisa-wound Skin Appearance) Hemosiderin Staining -Temperature (Lisa-wound Skin No Abnormality Appearance) (Pt Warm) -Tenderness on Palpation (Lisa-wound No Skin Appearance) -Ulcer Cleansing Wound Cleanser -Foul Odor after Cleansing No -Anesthetic Used 4% Lidocaine Solution #5 R Lat LE -Current Size (cm) - Length 1.8 -Current Size (cm) - Width 1.2 -Current Size (cm) - Depth 0.2 -Total Square Cm 2.16 -Photo Taken No -Exudate Amt Small (1-33%) -Exudate Type Serosanguineous -Wound Margin Thickened -Granulation Amt Medium (34-66%) -Granulation Quality Crown[place] -Necrosis Amt Medium (34-66%) -Necrotic Tissue Type Adherent Slough -Structure Exposed N/A -Texture (Lisa-wound Skin Appearance) Scarring -Moisture (Lisa-wound Skin Appearance Dry/Scaly ) -Color (Lisa-wound Skin Appearance) Hemosiderin Staining -Ulcer Cleansing Wound Cleanser -Foul Odor after Cleansing No -Anesthetic Used 4% Lidocaine Solution #4 R post LE -Current Size (cm) - Length 0.6 -Current Size (cm) - Width 0.5 -Current Size (cm) - Depth 0.2 -Total Square Cm 0.30 -Photo Taken No -Exudate Amt None Present (0 %) -Wound Margin Epibole -Granulation Amt Small (1-33%) -Granulation Quality Pale -Necrosis Amt Small (1-33%) -Necrotic Tissue Type Adherent Slough -Structure Exposed N/A -Texture (Lisa-wound Skin Appearance) Scarring -Moisture (Lisa-wound Skin Appearance Dry/Scaly ) -Color (Lisa-wound Skin Appearance) Hemosiderin Staining -Temperature (Lisa-wound Skin No Abnormality Appearance) (Pt Warm) -Ulcer Cleansing Wound Cleanser -Foul Odor after Cleansing No -Anesthetic Used 4% Lidocaine Solution #3 R Med LE -Current Size (cm) - Length 1.8 -Current Size (cm) - Width 0.4 -Current Size (cm) - Depth 0.6 -Total Square Cm 0.72 -Photo Taken No -Exudate Amt Small (1-33%) -Exudate Type Serosanguineous -Wound Margin Thickened & Rolled Under -Granulation Amt None Present (0 %) -Necrosis Amt Large (67-100%) -Necrotic Tissue Type Adherent Slough -Structure Exposed Fascia -Texture (Lisa-wound Skin Appearance) Scarring -Moisture (Lisa-wound Skin Appearance Dry/Scaly ) -Color (Lisa-wound Skin Appearance) Hemosiderin Staining -Temperature (Lisa-wound Skin No Abnormality Appearance) (Pt Warm) -Tenderness on Palpation (Lisa-wound No Skin Appearance) -Ulcer Cleansing Wound Cleanser -Foul Odor after Cleansing No -Anesthetic Used 4% Lidocaine Solution #2 R [place] Cluster -Current Size (cm) - Length 10.5 -Current Size (cm) - Width 2.2 -Current Size (cm) - Depth 0.2 -Total Square Cm 23.10 -Photo Taken No -Exudate Amt Medium (34-66%) -Exudate Type Serosanguineous -Wound Margin Thickened -Granulation Amt Medium (34-66%) -Granulation Quality Red -Necrosis Amt Medium (34-66%) -Necrotic Tissue Type Adherent Slough -Structure Exposed N/A -Texture (Lisa-wound Skin Appearance) Scarring -Moisture (Lisa-wound Skin Appearance Dry/Scaly ) -Color (Lisa-wound Skin Appearance) Hemosiderin Staining -Temperature (Lisa-wound Skin No Abnormality Appearance) (Pt Warm) -Tenderness on Palpation (Lisa-wound No Skin Appearance) -Ulcer Cleansing Wound Cleanser -Foul Odor after Cleansing No -Anesthetic Used 4% Lidocaine Solution #1 R 2nd toe amp/Arch/ Med Ankle -Current Size (cm) - Length 2.4 -Current Size (cm) - Width 0.5 -Current Size (cm) - Depth 0.5 -Total Square Cm 1.20 -Photo Taken No -Exudate Amt Small (1-33%) -Exudate Type Serosanguineous -Wound Margin Thickened -Granulation Amt Large (67-100%) -Granulation Quality [place] -Necrosis Amt Small (1-33%) -Necrotic Tissue Type Adherent Slough -Structure Exposed N/A -Texture (Lisa-wound Skin Appearance) Scarring -Moisture (Lisa-wound Skin Appearance Dry/Scaly ) -Color (Lisa-wound Skin Appearance) Hemosiderin Staining -Tenderness on Palpation (Lisa-wound No Skin Appearance) -Ulcer Cleansing Wound Cleanser -Foul Odor after Cleansing No -Anesthetic Used 4% Lidocaine Solution [Edema Assessment] -Right Calf (cm) 33 -Right Ankle (cm) 20.3 -Right Foot (cm) 33 -Left Calf (cm) 20 WC - Nurse 2 - General Ulcer CM Notes Start: 10/26/18 08:06 Freq: Status: Active Protocol: Activity Type Activity Date Activity User E-Sign Co-Sign Detail Recorded Client Recorded Date Recorded By Document 11/09/18 09:03 JAMAL [id number] 11/09/18 09:11 JF Document 11/09/18 09:19 MW [id number] 11/09/18 09:20 MW 11/09/18 11/09/18 09:03 09:19 Wound Center Nurse 2 [Procedure/Treatment] #11 RIGHT MEDIAL FOOT -Time 09:06 -Correct Patient Yes -Correct Side, Site, Position Yes -Correct Procedure Yes -Procedure Performed Yes -Type of Procedure Debridement -Clinical Debridement Subcutaneous -Post Debridement Size (cm) - Length 12.5 -Post Debridement Size (cm) - Width 2.1 -Post Debridement Size (cm) - Depth 0.5 -Total Square Cm 26.25 -Wound/Ulcer Outcome Not Healed -Ulcer Cleansing Rinsed/ Irrigated with Saline -Foul Odor after Cleansing No -Bioengineered Tissue No -Bleeding Controlled with Pressure -Offloading No -Treatment Response Procedure Tolerated Well #10 right heel -Time 09:06 -Correct Patient Yes -Correct Side, Site, Position Yes -Correct Procedure Yes -Procedure Performed Yes -Type of Procedure Debridement -Clinical Debridement Subcutaneous -Post Debridement Size (cm) - Length 0.2 -Post Debridement Size (cm) - Width 0.2 -Post Debridement Size (cm) - Depth 0.1 -Total Square Cm 0.04 -Wound/Ulcer Outcome Not Healed -Ulcer Cleansing Rinsed/ Irrigated with Saline -Foul Odor after Cleansing No -Bioengineered Tissue No -Bleeding Controlled with Pressure -Offloading No -Treatment Response Procedure Tolerated Well 9.L knee -Time 09:19 -Correct Patient Yes -Correct Side, Site, Position Yes -Correct Procedure Yes -Procedure Performed No -Wound/Ulcer Outcome Healed- Epithelialized #8 r Knee -Time 09:19 -Correct Patient Yes -Correct Side, Site, Position Yes -Correct Procedure Yes -Procedure Performed Yes -Type of Procedure Debridement -Clinical Debridement Subcutaneous -Post Debridement Size (cm) - Length 0.8 -Post Debridement Size (cm) - Width 1.0 -Post Debridement Size (cm) - Depth 0.2 -Total Square Cm 0.80 -Wound/Ulcer Outcome Not Healed -Ulcer Cleansing Rinsed/ Irrigated with Saline -Foul Odor after Cleansing No -Bioengineered Tissue No -Bleeding Controlled with Pressure -Type of Offloading Total Contact Cast (TCC) -Treatment Response Procedure Tolerated Well #6 L Post -Time 09:07 -Correct Patient Yes -Correct Side, Site, Position Yes -Correct Procedure Yes -Procedure Performed Yes -Type of Procedure Debridement -Clinical Debridement Subcutaneous -Post Debridement Size (cm) - Length 21.1 -Post Debridement Size (cm) - Width 2 -Post Debridement Size (cm) - Depth 0.5 -Total Square Cm 42.2 -Wound/Ulcer Outcome Not Healed -Ulcer Cleansing Rinsed/ Irrigated with Saline -Foul Odor after Cleansing No -Bioengineered Tissue No -Bleeding Controlled with Pressure -Offloading No -Treatment Response Procedure Tolerated Well #5 R Lat LE -Time 09:07 -Correct Patient Yes -Correct Side, Site, Position Yes -Correct Procedure Yes -Procedure Performed Yes -Type of Procedure Debridement -Clinical Debridement Subcutaneous -Post Debridement Size (cm) - Length 1.8 -Post Debridement Size (cm) - Width 1.3 -Post Debridement Size (cm) - Depth 0.2 -Total Square Cm 2.34 -Wound/Ulcer Outcome Not Healed -Ulcer Cleansing Rinsed/ Irrigated with Saline -Foul Odor after Cleansing No -Bioengineered Tissue No -Bleeding Controlled with Pressure -Offloading No -Treatment Response Procedure Tolerated Well #4 R post LE -Time 09:07 -Correct Patient Yes -Correct Side, Site, Position Yes -Correct Procedure Yes -Procedure Performed Yes -Type of Procedure Debridement -Clinical Debridement Subcutaneous -Post Debridement Size (cm) - Length 0.6 -Post Debridement Size (cm) - Width 0.6 -Post Debridement Size (cm) - Depth 0.2 -Total Square Cm 0.36 -Wound/Ulcer Outcome Not Healed -Ulcer Cleansing Rinsed/ Irrigated with Saline -Foul Odor after Cleansing No -Bioengineered Tissue No -Bleeding Controlled with Pressure -Offloading No -Treatment Response Procedure Tolerated Well #3 R Med LE -Time 09:08 -Correct Patient Yes -Correct Side, Site, Position Yes -Correct Procedure Yes -Procedure Performed Yes -Type of Procedure Debridement -Clinical Debridement Subcutaneous -Post Debridement Size (cm) - Length 1.8 -Post Debridement Size (cm) - Width 0.5 -Post Debridement Size (cm) - Depth 0.6 -Total Square Cm 0.90 -Wound/Ulcer Outcome Not Healed -Ulcer Cleansing Rinsed/ Irrigated with Saline -Foul Odor after Cleansing No -Bioengineered Tissue No -Bleeding Controlled with Pressure -Offloading No -Treatment Response Procedure Tolerated Well #2 R [place] Cluster -Time 09:08 -Correct Patient Yes -Correct Side, Site, Position Yes -Correct Procedure Yes -Procedure Performed Yes -Type of Procedure Debridement -Clinical Debridement Subcutaneous -Post Debridement Size (cm) - Length 10.5 -Post Debridement Size (cm) - Width 2.3 -Post Debridement Size (cm) - Depth 0.2 -Total Square Cm 24.15 -Wound/Ulcer Outcome Not Healed -Ulcer Cleansing Rinsed/ Irrigated with Saline -Foul Odor after Cleansing No -Bioengineered Tissue No -Bleeding Controlled with Pressure -Offloading No -Treatment Response Procedure Tolerated Well #1 R 2nd toe amp/Arch/ Med Ankle -Time 09:09 -Correct Patient Yes -Correct Side, Site, Position Yes -Correct Procedure Yes -Procedure Performed Yes -Type of Procedure Debridement -Clinical Debridement Subcutaneous -Post Debridement Size (cm) - Length 2.5 -Post Debridement Size (cm) - Width 0.5 -Post Debridement Size (cm) - Depth 0.5 -Total Square Cm 1.25 -Wound/Ulcer Outcome Not Healed -Ulcer Cleansing Rinsed/ Irrigated with Saline -Foul Odor after Cleansing No -Bioengineered Tissue No -Bleeding Controlled with Pressure -Offloading No -Treatment Response Procedure Tolerated Well [See Physician Procedure note for Specifics] Pain Scale: 0-10 Numeric [Pain] -Is Patient Pain Free? Yes Yes Musculoskeletal: No Muscle Wasting Neurological: Cranial nerves II-XII grossly intact Psych/Mental Status: Normal Affect Debridement Note Post-Debridement Measurements/Treatment WC - Nurse 2 - General Ulcer CM Notes Start: 10/26/18 08:06 Freq: Status: Active Protocol: Activity Type Activity Date Activity User E-Sign Co-Sign Detail Recorded Client Recorded Date Recorded By Document 10/26/18 09:03 TM [id number] 10/26/18 09:10 TM Document 11/02/18 08:44 JF [id number] 11/02/18 08:51 JF Document 11/02/18 09:34 MW [id number] 11/02/18 09:35 MW Document 11/09/18 09:03 JF [id number] 11/09/18 09:11 JF Document 11/09/18 09:19 MW [id number] 11/09/18 09:20 MW 10/26/18 11/02/18 11/02/18 09:03 08:44 09:34 Wound Center Nurse 2 #11 RIGHT MEDIAL FOOT -Time 08:44 -Correct Patient Yes -Correct Side, Site, Position Yes -Correct Procedure Yes -Procedure Performed Yes -Type of Procedure Debridement -Clinical Debridement Subcutaneous -Post Debridement Size (cm) - Length 12.1 -Post Debridement Size (cm) - Width 2 -Post Debridement Size (cm) - Depth 0.2 -Total Square Cm 24.2 -Wound/Ulcer Outcome Not Healed -Ulcer Cleansing Rinsed/ Irrigated with Saline -Foul Odor after Cleansing No -Bioengineered Tissue No -Bleeding Controlled with Pressure -Offloading No -Treatment Response Procedure Tolerated Well #10 right heel -Time 09:05 08:45 -Correct Patient Yes Yes -Correct Side, Site, Position Yes Yes -Correct Procedure Yes Yes -Procedure Performed Yes Yes -Type of Procedure Debridement Debridement -Clinical Debridement Subcutaneous Subcutaneous -Post Debridement Size (cm) - Length 0.9 0.6 -Post Debridement Size (cm) - Width 0.4 1 -Post Debridement Size (cm) - Depth 0.1 0.2 -Total Square Cm 0.36 0.6 -Wound/Ulcer Outcome Not Healed Not Healed -Ulcer Cleansing Rinsed/ Rinsed/ Irrigated with Irrigated with Saline Saline -Foul Odor after Cleansing No No -Bioengineered Tissue No No -Topical Lidocaine (%) 4 -Bleeding Controlled with Pressure Pressure -Offloading Yes No -Type of Offloading Camwalker -Treatment Response Procedure Procedure Tolerated Well Tolerated Well 9.L knee -Time 09:34 -Correct Patient Yes -Correct Side, Site, Position Yes -Correct Procedure Yes -Procedure Performed No -Post Debridement Size (cm) - Length 0.1 -Post Debridement Size (cm) - Width 0.1 -Post Debridement Size (cm) - Depth 0.1 -Total Square Cm 0.01 -Wound/Ulcer Outcome Not Healed -Ulcer Cleansing Rinsed/ Irrigated with Saline -Foul Odor after Cleansing No -Bioengineered Tissue No -Bleeding Controlled with NA -Offloading No -Treatment Response Procedure Tolerated Well #8 r Knee -Time 09:34 -Correct Patient Yes -Correct Side, Site, Position Yes -Correct Procedure Yes -Procedure Performed Yes -Type of Procedure Debridement -Clinical Debridement Subcutaneous -Post Debridement Size (cm) - Length 1.2 -Post Debridement Size (cm) - Width 1.5 -Post Debridement Size (cm) - Depth 0.3 -Total Square Cm 1.80 -Wound/Ulcer Outcome Not Healed -Ulcer Cleansing Rinsed/ Irrigated with Saline -Foul Odor after Cleansing No -Bioengineered Tissue No -Bleeding Controlled with Pressure -Offloading No -Type of Offloading -Treatment Response Procedure Tolerated Well #6 L Post -Time 09:06 08:46 -Correct Patient Yes Yes -Correct Side, Site, Position Yes Yes -Correct Procedure Yes Yes -Procedure Performed Yes Yes -Type of Procedure Debridement Debridement -Clinical Debridement Subcutaneous Subcutaneous -Post Debridement Size (cm) - Length 21.1 21 -Post Debridement Size (cm) - Width 1.7 1.9 -Post Debridement Size (cm) - Depth 0.1 0.3 -Total Square Cm 35.87 39.9 -Wound/Ulcer Outcome Not Healed Not Healed -Ulcer Cleansing Rinsed/ Rinsed/ Irrigated with Irrigated with Saline Saline -Foul Odor after Cleansing No No -Bioengineered Tissue No No -Topical Lidocaine (%) 4 -Bleeding Controlled with Pressure Pressure -Offloading Yes No -Treatment Response Procedure Procedure Tolerated Well Tolerated Well #5 R Lat LE -Time 09:07 08:46 -Correct Patient Yes Yes -Correct Side, Site, Position Yes Yes -Correct Procedure Yes Yes -Procedure Performed Yes Yes -Type of Procedure Debridement Debridement -Clinical Debridement Subcutaneous Subcutaneous -Post Debridement Size (cm) - Length 1.9 1.5 -Post Debridement Size (cm) - Width 1.6 1.4 -Post Debridement Size (cm) - Depth 0.2 0.3 -Total Square Cm 3.04 2.10 -Wound/Ulcer Outcome Not Healed Not Healed -Ulcer Cleansing Rinsed/ Rinsed/ Irrigated with Irrigated with Saline Saline -Foul Odor after Cleansing No No -Bioengineered Tissue No No -Topical Lidocaine (%) 4 -Bleeding Controlled with Pressure Pressure -Offloading Yes No -Type of Offloading Camwalker -Treatment Response Procedure Procedure Tolerated Well Tolerated Well #4 R post LE -Time 09:07 08:46 -Correct Patient Yes Yes -Correct Side, Site, Position Yes Yes -Correct Procedure Yes Yes -Procedure Performed Yes Yes -Type of Procedure Debridement Debridement -Clinical Debridement Subcutaneous Subcutaneous -Post Debridement Size (cm) - Length 0.9 0.8 -Post Debridement Size (cm) - Width 0.6 0.6 -Post Debridement Size (cm) - Depth 0.2 0.2 -Total Square Cm 0.54 0.48 -Wound/Ulcer Outcome Not Healed Not Healed -Ulcer Cleansing Rinsed/ Rinsed/ Irrigated with Irrigated with Saline Saline -Foul Odor after Cleansing No No -Bioengineered Tissue No No -Topical Lidocaine (%) 4 -Bleeding Controlled with Pressure Pressure -Offloading No -Type of Offloading Camwalker -Treatment Response Procedure Procedure Tolerated Well Tolerated Well #3 R Med LE -Time 09: 08:47 -Correct Patient Yes Yes -Correct Side, Site, Position Yes Yes -Correct Procedure Yes Yes -Procedure Performed Yes Yes -Type of Procedure Debridement Debridement -Clinical Debridement Subcutaneous Subcutaneous -Post Debridement Size (cm) - Length 2.6 1.8 -Post Debridement Size (cm) - Width 0.7 0.5 -Post Debridement Size (cm) - Depth 0.6 0.4 -Total Square Cm 1.82 0.90 -Wound/Ulcer Outcome Not Healed Not Healed -Ulcer Cleansing Rinsed/ Rinsed/ Irrigated with Irrigated with Saline Saline -Foul Odor after Cleansing No No -Bioengineered Tissue No No -Topical Lidocaine (%) 4 -Bleeding Controlled with Pressure Pressure -Offloading Yes No -Type of Offloading Camwalker -Treatment Response Procedure Procedure Tolerated Well Tolerated Well #2 R [place] Cluster -Time 09: 08:47 -Correct Patient Yes Yes -Correct Side, Site, Position Yes Yes -Correct Procedure Yes Yes -Procedure Performed Yes Yes -Type of Procedure Debridement Debridement -Clinical Debridement Subcutaneous Subcutaneous -Post Debridement Size (cm) - Length 11.6 10.8 -Post Debridement Size (cm) - Width 3.1 3.1 -Post Debridement Size (cm) - Depth 0.1 0.1 -Total Square Cm 35.96 33.48 -Wound/Ulcer Outcome Not Healed Not Healed -Ulcer Cleansing Rinsed/ Rinsed/ Irrigated with Irrigated with Saline Saline -Foul Odor after Cleansing No No -Bioengineered Tissue No No -Topical Lidocaine (%) 4 -Bleeding Controlled with Pressure Pressure -Offloading Yes No -Type of Offloading Camwalker -Treatment Response Procedure Procedure Tolerated Well Tolerated Well #1 R 2nd toe amp/Arch/ Med Ankle -Time 09: 08:47 -Correct Patient Yes Yes -Correct Side, Site, Position Yes Yes -Correct Procedure Yes Yes -Procedure Performed Yes Yes -Type of Procedure Debridement Debridement -Clinical Debridement Subcutaneous Subcutaneous -Post Debridement Size (cm) - Length 25.3 3 -Post Debridement Size (cm) - Width 2.4 0.4 -Post Debridement Size (cm) - Depth 1.1 0.7 -Total Square Cm 60.72 1.2 -Wound/Ulcer Outcome Not Healed Not Healed -Ulcer Cleansing Rinsed/ Rinsed/ Irrigated with Irrigated with Saline Saline -Foul Odor after Cleansing No No -Bioengineered Tissue No No -Topical Lidocaine (%) 4 -Bleeding Controlled with Pressure Pressure -Offloading Yes No -Type of Offloading Camwalker -Treatment Response Procedure Procedure Tolerated Well Tolerated Well Pain Scale: 0-10 Numeric Is Patient Pain Free? Yes Yes 11/09/18 11/09/18 09:03 09:19 Wound Center Nurse 2 #11 RIGHT MEDIAL FOOT -Time 09:06 -Correct Patient Yes -Correct Side, Site, Position Yes -Correct Procedure Yes -Procedure Performed Yes -Type of Procedure Debridement -Clinical Debridement Subcutaneous -Post Debridement Size (cm) - Length 12.5 -Post Debridement Size (cm) - Width 2.1 -Post Debridement Size (cm) - Depth 0.5 -Total Square Cm 26.25 -Wound/Ulcer Outcome Not Healed -Ulcer Cleansing Rinsed/ Irrigated with Saline -Foul Odor after Cleansing No -Bioengineered Tissue No -Bleeding Controlled with Pressure -Offloading No -Treatment Response Procedure Tolerated Well #10 right heel -Time 09:06 -Correct Patient Yes -Correct Side, Site, Position Yes -Correct Procedure Yes -Procedure Performed Yes -Type of Procedure Debridement -Clinical Debridement Subcutaneous -Post Debridement Size (cm) - Length 0.2 -Post Debridement Size (cm) - Width 0.2 -Post Debridement Size (cm) - Depth 0.1 -Total Square Cm 0.04 -Wound/Ulcer Outcome Not Healed -Ulcer Cleansing Rinsed/ Irrigated with Saline -Foul Odor after Cleansing No -Bioengineered Tissue No -Topical Lidocaine (%) -Bleeding Controlled with Pressure -Offloading No -Type of Offloading -Treatment Response Procedure Tolerated Well 9.L knee -Time 09:19 -Correct Patient Yes -Correct Side, Site, Position Yes -Correct Procedure Yes -Procedure Performed No -Post Debridement Size (cm) - Length -Post Debridement Size (cm) - Width -Post Debridement Size (cm) - Depth -Total Square Cm -Wound/Ulcer Outcome Healed- Epithelialized -Ulcer Cleansing -Foul Odor after Cleansing -Bioengineered Tissue -Bleeding Controlled with -Offloading -Treatment Response #8 r Knee -Time 09:19 -Correct Patient Yes -Correct Side, Site, Position Yes -Correct Procedure Yes -Procedure Performed Yes -Type of Procedure Debridement -Clinical Debridement Subcutaneous -Post Debridement Size (cm) - Length 0.8 -Post Debridement Size (cm) - Width 1.0 -Post Debridement Size (cm) - Depth 0.2 -Total Square Cm 0.80 -Wound/Ulcer Outcome Not Healed -Ulcer Cleansing Rinsed/ Irrigated with Saline -Foul Odor after Cleansing No -Bioengineered Tissue No -Bleeding Controlled with Pressure -Offloading -Type of Offloading Total Contact Cast (TCC) -Treatment Response Procedure Tolerated Well #6 L Post -Time 09:07 -Correct Patient Yes -Correct Side, Site, Position Yes -Correct Procedure Yes -Procedure Performed Yes -Type of Procedure Debridement -Clinical Debridement Subcutaneous -Post Debridement Size (cm) - Length 21.1 -Post Debridement Size (cm) - Width 2 -Post Debridement Size (cm) - Depth 0.5 -Total Square Cm 42.2 -Wound/Ulcer Outcome Not Healed -Ulcer Cleansing Rinsed/ Irrigated with Saline -Foul Odor after Cleansing No -Bioengineered Tissue No -Topical Lidocaine (%) -Bleeding Controlled with Pressure -Offloading No -Treatment Response Procedure Tolerated Well #5 R Lat LE -Time 09:07 -Correct Patient Yes -Correct Side, Site, Position Yes -Correct Procedure Yes -Procedure Performed Yes -Type of Procedure Debridement -Clinical Debridement Subcutaneous -Post Debridement Size (cm) - Length 1.8 -Post Debridement Size (cm) - Width 1.3 -Post Debridement Size (cm) - Depth 0.2 -Total Square Cm 2.34 -Wound/Ulcer Outcome Not Healed -Ulcer Cleansing Rinsed/ Irrigated with Saline -Foul Odor after Cleansing No -Bioengineered Tissue No -Topical Lidocaine (%) -Bleeding Controlled with Pressure -Offloading No -Type of Offloading -Treatment Response Procedure Tolerated Well #4 R post LE -Time 09:07 -Correct Patient Yes -Correct Side, Site, Position Yes -Correct Procedure Yes -Procedure Performed Yes -Type of Procedure Debridement -Clinical Debridement Subcutaneous -Post Debridement Size (cm) - Length 0.6 -Post Debridement Size (cm) - Width 0.6 -Post Debridement Size (cm) - Depth 0.2 -Total Square Cm 0.36 -Wound/Ulcer Outcome Not Healed -Ulcer Cleansing Rinsed/ Irrigated with Saline -Foul Odor after Cleansing No -Bioengineered Tissue No -Topical Lidocaine (%) -Bleeding Controlled with Pressure -Offloading No -Type of Offloading -Treatment Response Procedure Tolerated Well #3 R Med LE -Time 09:08 -Correct Patient Yes -Correct Side, Site, Position Yes -Correct Procedure Yes -Procedure Performed Yes -Type of Procedure Debridement -Clinical Debridement Subcutaneous -Post Debridement Size (cm) - Length 1.8 -Post Debridement Size (cm) - Width 0.5 -Post Debridement Size (cm) - Depth 0.6 -Total Square Cm 0.90 -Wound/Ulcer Outcome Not Healed -Ulcer Cleansing Rinsed/ Irrigated with Saline -Foul Odor after Cleansing No -Bioengineered Tissue No -Topical Lidocaine (%) -Bleeding Controlled with Pressure -Offloading No -Type of Offloading -Treatment Response Procedure Tolerated Well #2 R [place] Cluster -Time 09:08 -Correct Patient Yes -Correct Side, Site, Position Yes -Correct Procedure Yes -Procedure Performed Yes -Type of Procedure Debridement -Clinical Debridement Subcutaneous -Post Debridement Size (cm) - Length 10.5 -Post Debridement Size (cm) - Width 2.3 -Post Debridement Size (cm) - Depth 0.2 -Total Square Cm 24.15 -Wound/Ulcer Outcome Not Healed -Ulcer Cleansing Rinsed/ Irrigated with Saline -Foul Odor after Cleansing No -Bioengineered Tissue No -Topical Lidocaine (%) -Bleeding Controlled with Pressure -Offloading No -Type of Offloading -Treatment Response Procedure Tolerated Well #1 R 2nd toe amp/Arch/ Med Ankle -Time 09:09 -Correct Patient Yes -Correct Side, Site, Position Yes -Correct Procedure Yes -Procedure Performed Yes -Type of Procedure Debridement -Clinical Debridement Subcutaneous -Post Debridement Size (cm) - Length 2.5 -Post Debridement Size (cm) - Width 0.5 -Post Debridement Size (cm) - Depth 0.5 -Total Square Cm 1.25 -Wound/Ulcer Outcome Not Healed -Ulcer Cleansing Rinsed/ Irrigated with Saline -Foul Odor after Cleansing No -Bioengineered Tissue No -Topical Lidocaine (%) -Bleeding Controlled with Pressure -Offloading No -Type of Offloading -Treatment Response Procedure Tolerated Well Pain Scale: 0-10 Numeric Is Patient Pain Free? Yes Yes Wound debrided: Right Knee Wound Grade/Stage: Stage III Type of Debridement: Excisional debridement Anesthesia Used: 4% Lidocaine Solution Depth: Down to and including healthy tissue, in the subcutaneous layer Percentage of wound debrided: 100 Instrument Used: 3mm curette Tissue Removed: Slough and devitalized tissue Severity: Fat Layer Exposed Amount of bleeding with debridement: Mild Bleeding Controlled with: Pressure Patient tolerated procedure well Assessment/Plan Active Problems (Last Updated 09/28/18 @ 12:41 by Geraldine Steele) Ulcer of right foot with fat layer exposed (Chronic) Skin ulcer of right knee with fat layer exposed (Chronic) Skin ulcer of left knee with fat layer exposed (Chronic) Delayed wound healing (Chronic) 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) Tobacco dependence due to cigarettes (Chronic) Ulcer of right lower extremity with fat layer exposed (Chronic) Ulcer of left lower extremity with fat layer exposed (Chronic) 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 Diabetic neuropathy. Malnutrition suspected. 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 Delayed healing. Gait impairment and fall risk. Other comorbidities, right knee ulcer, tendon exposed (Dr. Gilbert managed), left knee ulcer (Dr. Gilbert managed) Plan: Left knee is healed. Right kne improving. Debridement done as documented above. Procedure was well-tolerated. Continue Promogran with Adaptic over top and change every third day. Elevate lower extremities when seated in bed. Increased protein intake recommended. Other wound care as per Dr. Gruber. All the questions were answered and advised to call with any questions or concerns. Follow-up in 1 week. This note was generated with [employer] software. It may contain incorrect words, spelling, and punctuation that were not noted in checking the note before signing.
--- NOTE | 2018-11-09 09:56 | PCM.WC.PN ---
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 Current Visit: Yes Code(s): L97.513 - Non-pressure chronic ulcer of other part of right foot with necrosis of muscle (3) Ulcer of right foot with fat layer exposed Status: Chronic Current Visit: Yes Code(s): L97.512 - Non-pressure chronic ulcer of other part of right foot with fat layer exposed (4) Delayed wound healing Status: Chronic Current Visit: Yes Code(s): T14.8XXD - Other injury of unspecified body region, subsequent encounter (5) 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 Current Visit: Yes Code(s): L97.923 - Non-pressure chronic ulcer of unspecified part of left lower leg with necrosis of muscle (6) Osteomyelitis Status: Suspected Current Visit: Yes Code(s): M86.9 - Osteomyelitis, unspecified (7) PVD (peripheral vascular disease) Status: Suspected Current Visit: Yes Code(s): I73.9 - Peripheral vascular disease, unspecified (8) Tobacco dependence due to cigarettes Status: Chronic Current Visit: Yes Code(s): F17.210 - Nicotine dependence, cigarettes, uncomplicated (9) Ulcer of left lower extremity with fat layer exposed Status: Chronic Current Visit: Yes Code(s): L97.922 - Non-pressure chronic ulcer of unspecified part of left lower leg with fat layer exposed (10) 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 Current Visit: Yes Code(s): L97.923 - Non-pressure chronic ulcer of unspecified part of left lower leg with necrosis of muscle (11) Type 2 diabetes mellitus with diabetic polyneuropathy Status: Chronic Current Visit: Yes Code(s): E11.42 - Type 2 diabetes mellitus with diabetic polyneuropathy (12) Localized edema Status: Chronic Current Visit: Yes Code(s): R60.0 - Localized edema (13) Malnutrition Status: Chronic Current Visit: No Code(s): E46 - Unspecified protein-calorie malnutrition Type of Wound Chief Complaint: right and left Leg ulcers and right foot ulcer History of Wound: Mr. Arguello is a 63-year-old male with multiple comorbidities follows up for delayed healing ulcers to the right foot as well as bilateral legs. It is noted he previously had widespread debridements and fasciotomies performed to bilateral lower extremities secondary to life-threatening and limb threatening infection; this was previously performed at [facility]. He continues to follow with Dr. Gilbert for her knee ulcers, and I saw him today for his other ulcer sites. the left knee ulcer site has healed. He has been applying Aquacel to leg ulcers . His wound VAC application was placed on hold last week. He denies chills, fever or otherwise feeling of unwell. He presents today with his . He still refuses advanced wound care product application. He refuses hyperbaric oxygen therapy treatment. He continues to refuse surgical intervention. Progress of Wound: Stable most ulcer sites. New necrotic tissue formation is noted - Physical Exam Vital Signs Temp Pulse Resp BP 96.3 F L 114 H 20 H 142/69 H 11/09/18 08:06 11/09/18 08:06 11/09/18 08:06 11/09/18 08:06 General: Alert, Oriented x3, Cooperative Extremities: No cyanosis, Capillary Refill Less than 3 Seconds, No Calf Tenderness - Negative Errol and Lobato sign bilateral, Diminished Peripheral Pulses, Edema - Mild bilateral lower extremities, - - Open second and third ray resection right foot. Compartments remain soft to palpate bilateral lower extremities Skin: Ulcer/ Wound - No purulence, erythema, streaking, odor, or infection bilateral. The peripheral skin is hairless and atrophic. There is increased necrotic ulcer bed formation noted to the anterior right leg and posterior left proximal ulcer site Wound Measurements and Assessment WC - Nurse 1 - General Ulcer Measurement Start: 10/26/18 08:06 Freq: Status: Active Protocol: Activity Type Activity Date Activity User E-Sign Co-Sign Detail Recorded Client Recorded Date Recorded By Document 11/09/18 08:06 DL [id number] 11/09/18 08:35 DL 11/09/18 08:06 Wound Center Nurse 1 [Ulcer Assessment] #11 RIGHT MEDIAL FOOT -Current Size (cm) - Length 12.5 -Current Size (cm) - Width 2 -Current Size (cm) - Depth 0.5 -Total Square Cm 25.0 -Photo Taken No -Exudate Amt Medium (34-66%) -Exudate Type Serosanguineous -Wound Margin Thickened & Rolled Under -Granulation Amt Medium (34-66%) -Granulation Quality [place] Red -Necrosis Amt Medium (34-66%) -Necrotic Tissue Type Adherent Slough -Structure Exposed N/A -Texture (Lisa-wound Skin Appearance) Localized Edema Scarring -Moisture (Lisa-wound Skin Appearance No Abnormality ) -Color (Lisa-wound Skin Appearance) Hemosiderin Staining -Temperature (Lisa-wound Skin No Abnormality Appearance) (Pt Warm) -Tenderness on Palpation (Lisa-wound No Skin Appearance) -Ulcer Cleansing Wound Cleanser -Foul Odor after Cleansing No -Anesthetic Used 4% Lidocaine Solution #10 right heel -Current Size (cm) - Length 0.1 -Current Size (cm) - Width 0.1 -Current Size (cm) - Depth 0.1 -Total Square Cm 0.01 -Photo Taken No -Exudate Amt None Present (0 %) -Wound Margin Thickened -Granulation Amt Large (67-100%) -Granulation Quality Pale -Necrosis Amt None Present (0 %) -Structure Exposed N/A -Texture (Lisa-wound Skin Appearance) Scarring -Moisture (Lisa-wound Skin Appearance Dry/Scaly ) -Color (Lisa-wound Skin Appearance) Hemosiderin Staining -Temperature (Lisa-wound Skin No Abnormality Appearance) (Pt Warm) -Tenderness on Palpation (Lisa-wound No Skin Appearance) -Ulcer Cleansing Wound Cleanser -Foul Odor after Cleansing No -Anesthetic Used 4% Lidocaine Solution 9.L knee -Current Size (cm) - Length 0 -Current Size (cm) - Width 0 -Current Size (cm) - Depth 0 -Total Square Cm 0 -Photo Taken Yes -Exudate Amt None Present (0 %) -Wound Margin Flat & Intact -Granulation Amt Large (67-100%) -Granulation Quality Pale Blue [place] -Necrosis Amt None Present (0 %) -Structure Exposed N/A -Texture (Lisa-wound Skin Appearance) Scarring -Moisture (Lisa-wound Skin Appearance No Abnormality ) -Color (Lisa-wound Skin Appearance) Mottled -Temperature (Lisa-wound Skin No Abnormality Appearance) (Pt Warm) -Tenderness on Palpation (Lisa-wound No Skin Appearance) -Ulcer Cleansing Wound Cleanser -Foul Odor after Cleansing No -Anesthetic Used 4% Lidocaine Solution #8 r Knee -Current Size (cm) - Length 0.9 -Current Size (cm) - Width 1 -Current Size (cm) - Depth 0.3 -Total Square Cm 0.9 -Photo Taken No -Maximum Distance #2 (cm) 0.2 -Circular Undermining Yes -Exudate Amt Small (1-33%) -Exudate Type Serosanguineous -Wound Margin Thickened & Rolled Under -Granulation Amt Small (1-33%) -Granulation Quality Blue [place] -Necrosis Amt Large (67-100%) -Necrotic Tissue Type Adherent Slough -Structure Exposed N/A -Texture (Lisa-wound Skin Appearance) Scarring -Moisture (Lisa-wound Skin Appearance Dry/Scaly ) -Color (Lisa-wound Skin Appearance) Mottled Rubor -Temperature (Lisa-wound Skin No Abnormality Appearance) (Pt Warm) -Tenderness on Palpation (Lisa-wound No Skin Appearance) -Ulcer Cleansing Wound Cleanser -Foul Odor after Cleansing No -Anesthetic Used 4% Lidocaine Solution #6 L Post -Current Size (cm) - Length 21 -Current Size (cm) - Width 2 -Current Size (cm) - Depth 0.5 -Total Square Cm 42 -Photo Taken No -Exudate Amt Small (1-33%) -Exudate Type Serosanguineous -Wound Margin Thickened & Rolled Under -Granulation Amt Medium (34-66%) -Granulation Quality Blue [place] -Necrosis Amt Medium (34-66%) -Necrotic Tissue Type Adherent Slough -Structure Exposed N/A -Texture (Lisa-wound Skin Appearance) Scarring -Moisture (Lisa-wound Skin Appearance Dry/Scaly ) -Color (Lisa-wound Skin Appearance) Hemosiderin Staining -Temperature (Lisa-wound Skin No Abnormality Appearance) (Pt Warm) -Tenderness on Palpation (Lisa-wound No Skin Appearance) -Ulcer Cleansing Wound Cleanser -Foul Odor after Cleansing No -Anesthetic Used 4% Lidocaine Solution #5 R Lat LE -Current Size (cm) - Length 1.8 -Current Size (cm) - Width 1.2 -Current Size (cm) - Depth 0.2 -Total Square Cm 2.16 -Photo Taken No -Exudate Amt Small (1-33%) -Exudate Type Serosanguineous -Wound Margin Thickened -Granulation Amt Medium (34-66%) -Granulation Quality [place] -Necrosis Amt Medium (34-66%) -Necrotic Tissue Type Adherent Slough -Structure Exposed N/A -Texture (Lisa-wound Skin Appearance) Scarring -Moisture (Lisa-wound Skin Appearance Dry/Scaly ) -Color (Lisa-wound Skin Appearance) Hemosiderin Staining -Ulcer Cleansing Wound Cleanser -Foul Odor after Cleansing No -Anesthetic Used 4% Lidocaine Solution #4 R post LE -Current Size (cm) - Length 0.6 -Current Size (cm) - Width 0.5 -Current Size (cm) - Depth 0.2 -Total Square Cm 0.30 -Photo Taken No -Exudate Amt None Present (0 %) -Wound Margin Epibole -Granulation Amt Small (1-33%) -Granulation Quality Pale -Necrosis Amt Small (1-33%) -Necrotic Tissue Type Adherent Slough -Structure Exposed N/A -Texture (Lisa-wound Skin Appearance) Scarring -Moisture (Lisa-wound Skin Appearance Dry/Scaly ) -Color (Lisa-wound Skin Appearance) Hemosiderin Staining -Temperature (Lisa-wound Skin No Abnormality Appearance) (Pt Warm) -Ulcer Cleansing Wound Cleanser -Foul Odor after Cleansing No -Anesthetic Used 4% Lidocaine Solution #3 R Med LE -Current Size (cm) - Length 1.8 -Current Size (cm) - Width 0.4 -Current Size (cm) - Depth 0.6 -Total Square Cm 0.72 -Photo Taken No -Exudate Amt Small (1-33%) -Exudate Type Serosanguineous -Wound Margin Thickened & Rolled Under -Granulation Amt None Present (0 %) -Necrosis Amt Large (67-100%) -Necrotic Tissue Type Adherent Slough -Structure Exposed Fascia -Texture (Lisa-wound Skin Appearance) Scarring -Moisture (Lisa-wound Skin Appearance Dry/Scaly ) -Color (Lisa-wound Skin Appearance) Hemosiderin Staining -Temperature (Lisa-wound Skin No Abnormality Appearance) (Pt Warm) -Tenderness on Palpation (Lisa-wound No Skin Appearance) -Ulcer Cleansing Wound Cleanser -Foul Odor after Cleansing No -Anesthetic Used 4% Lidocaine Solution #2 R [place] Cluster -Current Size (cm) - Length 10.5 -Current Size (cm) - Width 2.2 -Current Size (cm) - Depth 0.2 -Total Square Cm 23.10 -Photo Taken No -Exudate Amt Medium (34-66%) -Exudate Type Serosanguineous -Wound Margin Thickened -Granulation Amt Medium (34-66%) -Granulation Quality Red -Necrosis Amt Medium (34-66%) -Necrotic Tissue Type Adherent Slough -Structure Exposed N/A -Texture (Lisa-wound Skin Appearance) Scarring -Moisture (Lisa-wound Skin Appearance Dry/Scaly ) -Color (Lisa-wound Skin Appearance) Hemosiderin Staining -Temperature (Lisa-wound Skin No Abnormality Appearance) (Pt Warm) -Tenderness on Palpation (Lisa-wound No Skin Appearance) -Ulcer Cleansing Wound Cleanser -Foul Odor after Cleansing No -Anesthetic Used 4% Lidocaine Solution #1 R 2nd toe amp/Arch/ Med Ankle -Current Size (cm) - Length 2.4 -Current Size (cm) - Width 0.5 -Current Size (cm) - Depth 0.5 -Total Square Cm 1.20 -Photo Taken No -Exudate Amt Small (1-33%) -Exudate Type Serosanguineous -Wound Margin Thickened -Granulation Amt Large (67-100%) -Granulation Quality [place] -Necrosis Amt Small (1-33%) -Necrotic Tissue Type Adherent Slough -Structure Exposed N/A -Texture (Lisa-wound Skin Appearance) Scarring -Moisture (Lisa-wound Skin Appearance Dry/Scaly ) -Color (Lisa-wound Skin Appearance) Hemosiderin Staining -Tenderness on Palpation (Lisa-wound No Skin Appearance) -Ulcer Cleansing Wound Cleanser -Foul Odor after Cleansing No -Anesthetic Used 4% Lidocaine Solution [Edema Assessment] -Right Calf (cm) 33 -Right Ankle (cm) 20.3 -Right Foot (cm) 33 -Left Calf (cm) 20 WC - Nurse 2 - General Ulcer CM Notes Start: 10/26/18 08:06 Freq: Status: Active Protocol: Activity Type Activity Date Activity User E-Sign Co-Sign Detail Recorded Client Recorded Date Recorded By Document 11/09/18 09:03 JF [id number] 11/09/18 09:11 JF Document 11/09/18 09:19 MW [id number] 11/09/18 09:20 MW 11/09/18 11/09/18 09:03 09:19 Wound Center Nurse 2 [Procedure/Treatment] #11 RIGHT MEDIAL FOOT -Time 09:06 -Correct Patient Yes -Correct Side, Site, Position Yes -Correct Procedure Yes -Procedure Performed Yes -Type of Procedure Debridement -Clinical Debridement Subcutaneous -Post Debridement Size (cm) - Length 12.5 -Post Debridement Size (cm) - Width 2.1 -Post Debridement Size (cm) - Depth 0.5 -Total Square Cm 26.25 -Wound/Ulcer Outcome Not Healed -Ulcer Cleansing Rinsed/ Irrigated with Saline -Foul Odor after Cleansing No -Bioengineered Tissue No -Bleeding Controlled with Pressure -Offloading No -Treatment Response Procedure Tolerated Well #10 right heel -Time 09:06 -Correct Patient Yes -Correct Side, Site, Position Yes -Correct Procedure Yes -Procedure Performed Yes -Type of Procedure Debridement -Clinical Debridement Subcutaneous -Post Debridement Size (cm) - Length 0.2 -Post Debridement Size (cm) - Width 0.2 -Post Debridement Size (cm) - Depth 0.1 -Total Square Cm 0.04 -Wound/Ulcer Outcome Not Healed -Ulcer Cleansing Rinsed/ Irrigated with Saline -Foul Odor after Cleansing No -Bioengineered Tissue No -Bleeding Controlled with Pressure -Offloading No -Treatment Response Procedure Tolerated Well 9.L knee -Time 09:19 -Correct Patient Yes -Correct Side, Site, Position Yes -Correct Procedure Yes -Procedure Performed No -Wound/Ulcer Outcome Healed- Epithelialized #8 r Knee -Time 09:19 -Correct Patient Yes -Correct Side, Site, Position Yes -Correct Procedure Yes -Procedure Performed Yes -Type of Procedure Debridement -Clinical Debridement Subcutaneous -Post Debridement Size (cm) - Length 0.8 -Post Debridement Size (cm) - Width 1.0 -Post Debridement Size (cm) - Depth 0.2 -Total Square Cm 0.80 -Wound/Ulcer Outcome Not Healed -Ulcer Cleansing Rinsed/ Irrigated with Saline -Foul Odor after Cleansing No -Bioengineered Tissue No -Bleeding Controlled with Pressure -Type of Offloading Total Contact Cast (TCC) -Treatment Response Procedure Tolerated Well #6 L Post -Time 09:07 -Correct Patient Yes -Correct Side, Site, Position Yes -Correct Procedure Yes -Procedure Performed Yes -Type of Procedure Debridement -Clinical Debridement Subcutaneous -Post Debridement Size (cm) - Length 21.1 -Post Debridement Size (cm) - Width 2 -Post Debridement Size (cm) - Depth 0.5 -Total Square Cm 42.2 -Wound/Ulcer Outcome Not Healed -Ulcer Cleansing Rinsed/ Irrigated with Saline -Foul Odor after Cleansing No -Bioengineered Tissue No -Bleeding Controlled with Pressure -Offloading No -Treatment Response Procedure Tolerated Well #5 R Lat LE -Time 09:07 -Correct Patient Yes -Correct Side, Site, Position Yes -Correct Procedure Yes -Procedure Performed Yes -Type of Procedure Debridement -Clinical Debridement Subcutaneous -Post Debridement Size (cm) - Length 1.8 -Post Debridement Size (cm) - Width 1.3 -Post Debridement Size (cm) - Depth 0.2 -Total Square Cm 2.34 -Wound/Ulcer Outcome Not Healed -Ulcer Cleansing Rinsed/ Irrigated with Saline -Foul Odor after Cleansing No -Bioengineered Tissue No -Bleeding Controlled with Pressure -Offloading No -Treatment Response Procedure Tolerated Well #4 R post LE -Time 09:07 -Correct Patient Yes -Correct Side, Site, Position Yes -Correct Procedure Yes -Procedure Performed Yes -Type of Procedure Debridement -Clinical Debridement Subcutaneous -Post Debridement Size (cm) - Length 0.6 -Post Debridement Size (cm) - Width 0.6 -Post Debridement Size (cm) - Depth 0.2 -Total Square Cm 0.36 -Wound/Ulcer Outcome Not Healed -Ulcer Cleansing Rinsed/ Irrigated with Saline -Foul Odor after Cleansing No -Bioengineered Tissue No -Bleeding Controlled with Pressure -Offloading No -Treatment Response Procedure Tolerated Well #3 R Med LE -Time 09:08 -Correct Patient Yes -Correct Side, Site, Position Yes -Correct Procedure Yes -Procedure Performed Yes -Type of Procedure Debridement -Clinical Debridement Subcutaneous -Post Debridement Size (cm) - Length 1.8 -Post Debridement Size (cm) - Width 0.5 -Post Debridement Size (cm) - Depth 0.6 -Total Square Cm 0.90 -Wound/Ulcer Outcome Not Healed -Ulcer Cleansing Rinsed/ Irrigated with Saline -Foul Odor after Cleansing No -Bioengineered Tissue No -Bleeding Controlled with Pressure -Offloading No -Treatment Response Procedure Tolerated Well #2 R [place] Cluster -Time 09:08 -Correct Patient Yes -Correct Side, Site, Position Yes -Correct Procedure Yes -Procedure Performed Yes -Type of Procedure Debridement -Clinical Debridement Subcutaneous -Post Debridement Size (cm) - Length 10.5 -Post Debridement Size (cm) - Width 2.3 -Post Debridement Size (cm) - Depth 0.2 -Total Square Cm 24.15 -Wound/Ulcer Outcome Not Healed -Ulcer Cleansing Rinsed/ Irrigated with Saline -Foul Odor after Cleansing No -Bioengineered Tissue No -Bleeding Controlled with Pressure -Offloading No -Treatment Response Procedure Tolerated Well #1 R 2nd toe amp/Arch/ Med Ankle -Time 09:09 -Correct Patient Yes -Correct Side, Site, Position Yes -Correct Procedure Yes -Procedure Performed Yes -Type of Procedure Debridement -Clinical Debridement Subcutaneous -Post Debridement Size (cm) - Length 2.5 -Post Debridement Size (cm) - Width 0.5 -Post Debridement Size (cm) - Depth 0.5 -Total Square Cm 1.25 -Wound/Ulcer Outcome Not Healed -Ulcer Cleansing Rinsed/ Irrigated with Saline -Foul Odor after Cleansing No -Bioengineered Tissue No -Bleeding Controlled with Pressure -Offloading No -Treatment Response Procedure Tolerated Well [See Physician Procedure note for Specifics] Pain Scale: 0-10 Numeric [Pain] -Is Patient Pain Free? Yes Yes Musculoskeletal: No Tenderness to Palpation of Joints or Extremities, Muscle Wasting Neurological: - - Lack of normal epicritic sensation light touch bilateral lower extremities Psych/Mental Status: Normal Affect, Appropriate Debridement Note Post-Debridement Measurements/Treatment WC - Nurse 2 - General Ulcer CM Notes Start: 10/26/18 08:06 Freq: Status: Active Protocol: Activity Type Activity Date Activity User E-Sign Co-Sign Detail Recorded Client Recorded Date Recorded By Document 10/26/18 09:03 TM [id number] 10/26/18 09:10 TM Document 11/02/18 08:44 JF [id number] 11/02/18 08:51 JF Document 11/02/18 09:34 MW [id number] 11/02/18 09:35 MW Document 11/09/18 09:03 JF [id number] 11/09/18 09:11 JF Document 11/09/18 09:19 MW [id number] 11/09/18 09:20 MW 10/26/18 11/02/18 11/02/18 09:03 08:44 09:34 Wound Center Nurse 2 #11 RIGHT MEDIAL FOOT -Time 08:44 -Correct Patient Yes -Correct Side, Site, Position Yes -Correct Procedure Yes -Procedure Performed Yes -Type of Procedure Debridement -Clinical Debridement Subcutaneous -Post Debridement Size (cm) - Length 12.1 -Post Debridement Size (cm) - Width 2 -Post Debridement Size (cm) - Depth 0.2 -Total Square Cm 24.2 -Wound/Ulcer Outcome Not Healed -Ulcer Cleansing Rinsed/ Irrigated with Saline -Foul Odor after Cleansing No -Bioengineered Tissue No -Bleeding Controlled with Pressure -Offloading No -Treatment Response Procedure Tolerated Well #10 right heel -Time 09:05 08:45 -Correct Patient Yes Yes -Correct Side, Site, Position Yes Yes -Correct Procedure Yes Yes -Procedure Performed Yes Yes -Type of Procedure Debridement Debridement -Clinical Debridement Subcutaneous Subcutaneous -Post Debridement Size (cm) - Length 0.9 0.6 -Post Debridement Size (cm) - Width 0.4 1 -Post Debridement Size (cm) - Depth 0.1 0.2 -Total Square Cm 0.36 0.6 -Wound/Ulcer Outcome Not Healed Not Healed -Ulcer Cleansing Rinsed/ Rinsed/ Irrigated with Irrigated with Saline Saline -Foul Odor after Cleansing No No -Bioengineered Tissue No No -Topical Lidocaine (%) 4 -Bleeding Controlled with Pressure Pressure -Offloading Yes No -Type of Offloading Camwalker -Treatment Response Procedure Procedure Tolerated Well Tolerated Well 9.L knee -Time 09:34 -Correct Patient Yes -Correct Side, Site, Position Yes -Correct Procedure Yes -Procedure Performed No -Post Debridement Size (cm) - Length 0.1 -Post Debridement Size (cm) - Width 0.1 -Post Debridement Size (cm) - Depth 0.1 -Total Square Cm 0.01 -Wound/Ulcer Outcome Not Healed -Ulcer Cleansing Rinsed/ Irrigated with Saline -Foul Odor after Cleansing No -Bioengineered Tissue No -Bleeding Controlled with NA -Offloading No -Treatment Response Procedure Tolerated Well #8 r Knee -Time 09:34 -Correct Patient Yes -Correct Side, Site, Position Yes -Correct Procedure Yes -Procedure Performed Yes -Type of Procedure Debridement -Clinical Debridement Subcutaneous -Post Debridement Size (cm) - Length 1.2 -Post Debridement Size (cm) - Width 1.5 -Post Debridement Size (cm) - Depth 0.3 -Total Square Cm 1.80 -Wound/Ulcer Outcome Not Healed -Ulcer Cleansing Rinsed/ Irrigated with Saline -Foul Odor after Cleansing No -Bioengineered Tissue No -Bleeding Controlled with Pressure -Offloading No -Type of Offloading -Treatment Response Procedure Tolerated Well #6 L Post -Time 09:06 08:46 -Correct Patient Yes Yes -Correct Side, Site, Position Yes Yes -Correct Procedure Yes Yes -Procedure Performed Yes Yes -Type of Procedure Debridement Debridement -Clinical Debridement Subcutaneous Subcutaneous -Post Debridement Size (cm) - Length 21.1 21 -Post Debridement Size (cm) - Width 1.7 1.9 -Post Debridement Size (cm) - Depth 0.1 0.3 -Total Square Cm 35.87 39.9 -Wound/Ulcer Outcome Not Healed Not Healed -Ulcer Cleansing Rinsed/ Rinsed/ Irrigated with Irrigated with Saline Saline -Foul Odor after Cleansing No No -Bioengineered Tissue No No -Topical Lidocaine (%) 4 -Bleeding Controlled with Pressure Pressure -Offloading Yes No -Treatment Response Procedure Procedure Tolerated Well Tolerated Well #5 R Lat LE -Time 09: 08:46 -Correct Patient Yes Yes -Correct Side, Site, Position Yes Yes -Correct Procedure Yes Yes -Procedure Performed Yes Yes -Type of Procedure Debridement Debridement -Clinical Debridement Subcutaneous Subcutaneous -Post Debridement Size (cm) - Length 1.9 1.5 -Post Debridement Size (cm) - Width 1.6 1.4 -Post Debridement Size (cm) - Depth 0.2 0.3 -Total Square Cm 3.04 2.10 -Wound/Ulcer Outcome Not Healed Not Healed -Ulcer Cleansing Rinsed/ Rinsed/ Irrigated with Irrigated with Saline Saline -Foul Odor after Cleansing No No -Bioengineered Tissue No No -Topical Lidocaine (%) 4 -Bleeding Controlled with Pressure Pressure -Offloading Yes No -Type of Offloading Camwalker -Treatment Response Procedure Procedure Tolerated Well Tolerated Well #4 R post LE -Time 09:07 08:46 -Correct Patient Yes Yes -Correct Side, Site, Position Yes Yes -Correct Procedure Yes Yes -Procedure Performed Yes Yes -Type of Procedure Debridement Debridement -Clinical Debridement Subcutaneous Subcutaneous -Post Debridement Size (cm) - Length 0.9 0.8 -Post Debridement Size (cm) - Width 0.6 0.6 -Post Debridement Size (cm) - Depth 0.2 0.2 -Total Square Cm 0.54 0.48 -Wound/Ulcer Outcome Not Healed Not Healed -Ulcer Cleansing Rinsed/ Rinsed/ Irrigated with Irrigated with Saline Saline -Foul Odor after Cleansing No No -Bioengineered Tissue No No -Topical Lidocaine (%) 4 -Bleeding Controlled with Pressure Pressure -Offloading No -Type of Offloading Camwalker -Treatment Response Procedure Procedure Tolerated Well Tolerated Well #3 R Med LE -Time 09: 08:47 -Correct Patient Yes Yes -Correct Side, Site, Position Yes Yes -Correct Procedure Yes Yes -Procedure Performed Yes Yes -Type of Procedure Debridement Debridement -Clinical Debridement Subcutaneous Subcutaneous -Post Debridement Size (cm) - Length 2.6 1.8 -Post Debridement Size (cm) - Width 0.7 0.5 -Post Debridement Size (cm) - Depth 0.6 0.4 -Total Square Cm 1.82 0.90 -Wound/Ulcer Outcome Not Healed Not Healed -Ulcer Cleansing Rinsed/ Rinsed/ Irrigated with Irrigated with Saline Saline -Foul Odor after Cleansing No No -Bioengineered Tissue No No -Topical Lidocaine (%) 4 -Bleeding Controlled with Pressure Pressure -Offloading Yes No -Type of Offloading Camwalker -Treatment Response Procedure Procedure Tolerated Well Tolerated Well #2 R [place] Cluster -Time 09: 08:47 -Correct Patient Yes Yes -Correct Side, Site, Position Yes Yes -Correct Procedure Yes Yes -Procedure Performed Yes Yes -Type of Procedure Debridement Debridement -Clinical Debridement Subcutaneous Subcutaneous -Post Debridement Size (cm) - Length 11.6 10.8 -Post Debridement Size (cm) - Width 3.1 3.1 -Post Debridement Size (cm) - Depth 0.1 0.1 -Total Square Cm 35.96 33.48 -Wound/Ulcer Outcome Not Healed Not Healed -Ulcer Cleansing Rinsed/ Rinsed/ Irrigated with Irrigated with Saline Saline -Foul Odor after Cleansing No No -Bioengineered Tissue No No -Topical Lidocaine (%) 4 -Bleeding Controlled with Pressure Pressure -Offloading Yes No -Type of Offloading Camwalker -Treatment Response Procedure Procedure Tolerated Well Tolerated Well #1 R 2nd toe amp/Arch/ Med Ankle -Time 09: 08:47 -Correct Patient Yes Yes -Correct Side, Site, Position Yes Yes -Correct Procedure Yes Yes -Procedure Performed Yes Yes -Type of Procedure Debridement Debridement -Clinical Debridement Subcutaneous Subcutaneous -Post Debridement Size (cm) - Length 25.3 3 -Post Debridement Size (cm) - Width 2.4 0.4 -Post Debridement Size (cm) - Depth 1.1 0.7 -Total Square Cm 60.72 1.2 -Wound/Ulcer Outcome Not Healed Not Healed -Ulcer Cleansing Rinsed/ Rinsed/ Irrigated with Irrigated with Saline Saline -Foul Odor after Cleansing No No -Bioengineered Tissue No No -Topical Lidocaine (%) 4 -Bleeding Controlled with Pressure Pressure -Offloading Yes No -Type of Offloading Camwalker -Treatment Response Procedure Procedure Tolerated Well Tolerated Well Pain Scale: 0-10 Numeric Is Patient Pain Free? Yes Yes 11/09/18 11/09/18 09:03 09:19 Wound Center Nurse 2 #11 RIGHT MEDIAL FOOT -Time 09:06 -Correct Patient Yes -Correct Side, Site, Position Yes -Correct Procedure Yes -Procedure Performed Yes -Type of Procedure Debridement -Clinical Debridement Subcutaneous -Post Debridement Size (cm) - Length 12.5 -Post Debridement Size (cm) - Width 2.1 -Post Debridement Size (cm) - Depth 0.5 -Total Square Cm 26.25 -Wound/Ulcer Outcome Not Healed -Ulcer Cleansing Rinsed/ Irrigated with Saline -Foul Odor after Cleansing No -Bioengineered Tissue No -Bleeding Controlled with Pressure -Offloading No -Treatment Response Procedure Tolerated Well #10 right heel -Time 09:06 -Correct Patient Yes -Correct Side, Site, Position Yes -Correct Procedure Yes -Procedure Performed Yes -Type of Procedure Debridement -Clinical Debridement Subcutaneous -Post Debridement Size (cm) - Length 0.2 -Post Debridement Size (cm) - Width 0.2 -Post Debridement Size (cm) - Depth 0.1 -Total Square Cm 0.04 -Wound/Ulcer Outcome Not Healed -Ulcer Cleansing Rinsed/ Irrigated with Saline -Foul Odor after Cleansing No -Bioengineered Tissue No -Topical Lidocaine (%) -Bleeding Controlled with Pressure -Offloading No -Type of Offloading -Treatment Response Procedure Tolerated Well 9.L knee -Time 09:19 -Correct Patient Yes -Correct Side, Site, Position Yes -Correct Procedure Yes -Procedure Performed No -Post Debridement Size (cm) - Length -Post Debridement Size (cm) - Width -Post Debridement Size (cm) - Depth -Total Square Cm -Wound/Ulcer Outcome Healed- Epithelialized -Ulcer Cleansing -Foul Odor after Cleansing -Bioengineered Tissue -Bleeding Controlled with -Offloading -Treatment Response #8 r Knee -Time 09:19 -Correct Patient Yes -Correct Side, Site, Position Yes -Correct Procedure Yes -Procedure Performed Yes -Type of Procedure Debridement -Clinical Debridement Subcutaneous -Post Debridement Size (cm) - Length 0.8 -Post Debridement Size (cm) - Width 1.0 -Post Debridement Size (cm) - Depth 0.2 -Total Square Cm 0.80 -Wound/Ulcer Outcome Not Healed -Ulcer Cleansing Rinsed/ Irrigated with Saline -Foul Odor after Cleansing No -Bioengineered Tissue No -Bleeding Controlled with Pressure -Offloading -Type of Offloading Total Contact Cast (TCC) -Treatment Response Procedure Tolerated Well #6 L Post -Time 09:07 -Correct Patient Yes -Correct Side, Site, Position Yes -Correct Procedure Yes -Procedure Performed Yes -Type of Procedure Debridement -Clinical Debridement Subcutaneous -Post Debridement Size (cm) - Length 21.1 -Post Debridement Size (cm) - Width 2 -Post Debridement Size (cm) - Depth 0.5 -Total Square Cm 42.2 -Wound/Ulcer Outcome Not Healed -Ulcer Cleansing Rinsed/ Irrigated with Saline -Foul Odor after Cleansing No -Bioengineered Tissue No -Topical Lidocaine (%) -Bleeding Controlled with Pressure -Offloading No -Treatment Response Procedure Tolerated Well #5 R Lat LE -Time 09:07 -Correct Patient Yes -Correct Side, Site, Position Yes -Correct Procedure Yes -Procedure Performed Yes -Type of Procedure Debridement -Clinical Debridement Subcutaneous -Post Debridement Size (cm) - Length 1.8 -Post Debridement Size (cm) - Width 1.3 -Post Debridement Size (cm) - Depth 0.2 -Total Square Cm 2.34 -Wound/Ulcer Outcome Not Healed -Ulcer Cleansing Rinsed/ Irrigated with Saline -Foul Odor after Cleansing No -Bioengineered Tissue No -Topical Lidocaine (%) -Bleeding Controlled with Pressure -Offloading No -Type of Offloading -Treatment Response Procedure Tolerated Well #4 R post LE -Time 09:07 -Correct Patient Yes -Correct Side, Site, Position Yes -Correct Procedure Yes -Procedure Performed Yes -Type of Procedure Debridement -Clinical Debridement Subcutaneous -Post Debridement Size (cm) - Length 0.6 -Post Debridement Size (cm) - Width 0.6 -Post Debridement Size (cm) - Depth 0.2 -Total Square Cm 0.36 -Wound/Ulcer Outcome Not Healed -Ulcer Cleansing Rinsed/ Irrigated with Saline -Foul Odor after Cleansing No -Bioengineered Tissue No -Topical Lidocaine (%) -Bleeding Controlled with Pressure -Offloading No -Type of Offloading -Treatment Response Procedure Tolerated Well #3 R Med LE -Time 09:08 -Correct Patient Yes -Correct Side, Site, Position Yes -Correct Procedure Yes -Procedure Performed Yes -Type of Procedure Debridement -Clinical Debridement Subcutaneous -Post Debridement Size (cm) - Length 1.8 -Post Debridement Size (cm) - Width 0.5 -Post Debridement Size (cm) - Depth 0.6 -Total Square Cm 0.90 -Wound/Ulcer Outcome Not Healed -Ulcer Cleansing Rinsed/ Irrigated with Saline -Foul Odor after Cleansing No -Bioengineered Tissue No -Topical Lidocaine (%) -Bleeding Controlled with Pressure -Offloading No -Type of Offloading -Treatment Response Procedure Tolerated Well #2 R [place] Cluster -Time 09:08 -Correct Patient Yes -Correct Side, Site, Position Yes -Correct Procedure Yes -Procedure Performed Yes -Type of Procedure Debridement -Clinical Debridement Subcutaneous -Post Debridement Size (cm) - Length 10.5 -Post Debridement Size (cm) - Width 2.3 -Post Debridement Size (cm) - Depth 0.2 -Total Square Cm 24.15 -Wound/Ulcer Outcome Not Healed -Ulcer Cleansing Rinsed/ Irrigated with Saline -Foul Odor after Cleansing No -Bioengineered Tissue No -Topical Lidocaine (%) -Bleeding Controlled with Pressure -Offloading No -Type of Offloading -Treatment Response Procedure Tolerated Well #1 R 2nd toe amp/Arch/ Med Ankle -Time 09:09 -Correct Patient Yes -Correct Side, Site, Position Yes -Correct Procedure Yes -Procedure Performed Yes -Type of Procedure Debridement -Clinical Debridement Subcutaneous -Post Debridement Size (cm) - Length 2.5 -Post Debridement Size (cm) - Width 0.5 -Post Debridement Size (cm) - Depth 0.5 -Total Square Cm 1.25 -Wound/Ulcer Outcome Not Healed -Ulcer Cleansing Rinsed/ Irrigated with Saline -Foul Odor after Cleansing No -Bioengineered Tissue No -Topical Lidocaine (%) -Bleeding Controlled with Pressure -Offloading No -Type of Offloading -Treatment Response Procedure Tolerated Well Pain Scale: 0-10 Numeric Is Patient Pain Free? Yes Yes Wound debrided: anterior leg Laterality: Right Wound Grade/Stage: grade 1 Type of Debridement: Excisional debridement Anesthesia Used: 4% Lidocaine Solution Depth: in the subcutaneous layer Percentage of wound debrided: 100 Instrument Used: #15 blade Tissue Removed: fibrous, devitalized subcutaneous, biofilm, slough Severity: Fat Layer Exposed Amount of bleeding with debridement: Mild Bleeding Controlled with: Pressure Patient tolerated procedure well - Additional Wound Wound debrided: medial leg Laterality: Right Wound Grade/Stage: grade 1 Type of Debridement: Excisional debridement Anesthesia Used: 4% Lidocaine Solution Depth: in the subcutaneous layer Percentage of wound debrided: 100 Instrument Used: #15 blade Tissue Removed: fibrous, devitalized subcutaneous, biofilm, slough Severity: Fat Layer Exposed Amount of bleeding with debridement: Mild Bleeding Controlled with: Pressure Patient tolerated procedure: Patient tolerated procedure well - Additional Wound Wound debrided: lateral leg Laterality: Right Wound Grade/Stage: grade 1 Type of Debridement: Excisional debridement Anesthesia Used: 4% Lidocaine Solution Depth: in the subcutaneous layer Percentage of wound debrided: 100 Instrument Used: #15 blade Tissue Removed: fibrous, devitalized subcutaneous, biofilm, slough Severity: Fat Layer Exposed Amount of bleeding with debridement: Mild Bleeding Controlled with: Pressure Patient tolerated procedure: Patient tolerated procedure well - Additional Wound Wound debrided: posterior leg Laterality: Right Wound Grade/Stage: grade 1 Type of Debridement: Excisional debridement Anesthesia Used: 4% Lidocaine Solution Depth: in the subcutaneous layer Percentage of wound debrided: 100 Instrument Used: #15 blade Tissue Removed: fibrous, devitalized subcutaneous, biofilm, slough Severity: Fat Layer Exposed Amount of bleeding with debridement: Mild Bleeding Controlled with: Pressure Patient tolerated procedure: Patient tolerated procedure well - Additional Wound Wound debrided: heel Laterality: Right Wound Grade/Stage: grade 1 Type of Debridement: Excisional debridement Anesthesia Used: 5% Lidocaine Gel Depth: in the subcutaneous layer Percentage of wound debrided: 100 Instrument Used: #15 blade Tissue Removed: fibrous, devitalized subcutaneous, biofilm, slough Severity: Fat Layer Exposed Amount of bleeding with debridement: Mild Bleeding Controlled with: Pressure Patient tolerated procedure: Patient tolerated procedure well - Additional Wound Wound debrided: forefoot Laterality: Right Wound Grade/Stage: grade 3 Type of Debridement: Excisional debridement Anesthesia Used: 5% Lidocaine Gel Depth: in the subcutaneous layer Percentage of wound debrided: 100 Instrument Used: #15 blade Tissue Removed: fibrous, devitalized subcutaneous, biofilm, slough Severity: Fat Layer Exposed Amount of bleeding with debridement: Mild Bleeding Controlled with: Pressure Patient tolerated procedure: Patient tolerated procedure well - Additional Wound Wound debrided: foot / ankle Laterality: Right Wound Grade/Stage: grade 3 Anesthesia Used: 4% Lidocaine Solution Depth: in the subcutaneous layer Percentage of wound debrided: 100 Instrument Used: #15 blade Tissue Removed: fibrous, devitalized subcutaneous, biofilm, slough Severity: Fat Layer Exposed Amount of bleeding with debridement: Mild Bleeding Controlled with: Pressure Patient tolerated procedure: Patient tolerated procedure well - Additional Wound Wound debrided: posterior leg Laterality: Left Wound Grade/Stage: grade 3 Type of Debridement: Excisional debridement Anesthesia Used: 5% Lidocaine Gel Depth: in the subcutaneous layer Percentage of wound debrided: 100 Instrument Used: #15 blade Tissue Removed: fibrous, devitalized subcutaneous, biofilm, slough Severity: Fat Layer Exposed Amount of bleeding with debridement: Mild Bleeding Controlled with: Pressure Patient tolerated procedure: Patient tolerated procedure well - Additional Wound Wound debrided: lateral leg Laterality: Left Wound Grade/Stage: grade 1 Anesthesia Used: 4% Lidocaine Solution Depth: in the subcutaneous layer Percentage of wound debrided: 100 Instrument Used: #15 blade Tissue Removed: fibrous, devitalized subcutaneous, biofilm, slough Severity: Fat Layer Exposed Amount of bleeding with debridement: Mild Bleeding Controlled with: Pressure Patient tolerated procedure: Patient tolerated procedure well Assessment/Plan Active Problems (Last Updated 09/28/18 @ 12:41 by Geraldine Steele) Ulcer of right foot with fat layer exposed (Chronic) Skin ulcer of right knee with fat layer exposed (Chronic) Skin ulcer of left knee with fat layer exposed (Chronic) Delayed wound healing (Chronic) 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) Tobacco dependence due to cigarettes (Chronic) Ulcer of right lower extremity with fat layer exposed (Chronic) Ulcer of left lower extremity with fat layer exposed (Chronic) 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 Diabetic neuropathy. Malnutrition suspected. 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 Delayed healing. Gait impairment and fall risk. Other comorbidities, right knee ulcer, tendon exposed (Dr. Gilbert managed), left knee ulcer (Dr. Gilbert managed) Plan: I reviewed and discussed his case with the patient and the patient's . Subcutaneous debridements were performed as noted in the clinical panel. I Recommended changing the dressings daily with assisted facility staff assistance with santyl to right knee (per Dr. Gilbert), and aquacel ag to the leg ulcers, santyl to devitalized tendon zones (right anterior leg and left posterior proximal ulcer site. To d/c wound. No infection is noted to any of the aformentioned lower extremity debridement sites. The ulcer sites have improved quality with granulation tissue. He has completed a 6 weeks of IV antibiotic of Unasyn. I recommend he avoids laying directly on his wounds to reduce pressure, and I was concerned about his perfusion to his limbs. He had an arterial Doppler scheduled with Dr. Morgan's staff on August 02, 2018 and overall perfusion was confirmed; additional intervention or workup was not recommended. It is also noted that he did have venous Doppler performed with reflux evaluation. He did not have evidence of deep venous thrombosis or venous insufficiency at that time; the vessels were compressible. To continue with nutritional supplementation optimize healing; I recommend Juan. I recommend he sustained from smoking and alcohol activities to optimize healing as well. His workup for vasculitis and underlying autoimmune disorder is also pending. A punch biopsy was sent during his last surgical intervention on June 10 and this demonstrated inflammatory changes without malignancy. He had initial screening labs and so far he has a negative RA titer, HL of the 27, KEVIN, anti-CCP, and rheumatoid factor. Several his antibody screenings were not reportable. Hyperbaric oxygen therapy was recommended and it is noted his ejection fraction was most recently 50%. He refuses at this time. Dr. Gilbert continues to manage his bilateral knee ulcers including debridements and traditional wound care plan. He refuses surgical intervention at this time to bilateral lower extremities. I answered all of his questions. Additional amputation of the right foot is not planned due to his fairly nonambulatory status. Smoking cessation was discussed in detail again today and compliance is imperative to optimize healing of surgical success. I recommend further follow-up at the wound care center 1 week with me, or call sooner if he has any questions. Compliance at this advanced wound care center was reviewed. He understands additional palliative care programs are an option if he does not wish to proceed with advanced wound care opportunities that has been recommended.
[2018-11-16 08:14] VITALS: BP 144/84; PULSE 101; RESP 18; TEMP 36
--- NOTE | 2018-11-16 09:12 | PN.PCM_ITS ---
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 Current Visit: Yes Code(s): L97.923 - Non-pressure chronic ulcer of unspecified part of left lower leg with necrosis of muscle (2) Chronic ulcer of left foot with fat layer exposed Status: Chronic Current Visit: Yes Code(s): L97.522 - Non-pressure chronic ulcer of other part of left foot with fat layer exposed (3) Ulcer of right lower extremity with fat layer exposed Status: Chronic Current Visit: Yes Code(s): L97.912 - Non-pressure chronic ulcer of unspecified part of right lower leg with fat layer exposed (4) Ulcer of right foot with fat layer exposed Status: Chronic Current Visit: Yes Code(s): L97.512 - Non-pressure chronic ulcer of other part of right foot with fat layer exposed (5) Delayed wound healing Status: Chronic Current Visit: Yes Code(s): T14.8XXD - Other injury of unspecified body region, subsequent encounter (6) Osteomyelitis Status: Resolved Current Visit: Yes Code(s): M86.9 - Osteomyelitis, unspecified (7) Tobacco dependence due to cigarettes Status: Suspected Current Visit: Yes Code(s): F17.210 - Nicotine dependence, cigarettes, uncomplicated (8) Ulcer of left lower extremity with fat layer exposed Status: Chronic Current Visit: Yes Code(s): L97.922 - Non-pressure chronic ulcer of unspecified part of left lower leg with fat layer exposed (9) 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 Current Visit: Yes Code(s): L97.923 - Non-pressure chronic ulcer of unspecified part of left lower leg with necrosis of muscle (10) Type 2 diabetes mellitus with diabetic polyneuropathy Status: Chronic Current Visit: Yes Code(s): E11.42 - Type 2 diabetes mellitus with diabetic polyneuropathy (11) Localized edema Status: Chronic Current Visit: Yes Code(s): R60.0 - Localized edema (12) Malnutrition Status: Chronic Current Visit: No Code(s): E46 - Unspecified protein-calorie malnutrition (13) Ulcer of right foot with necrosis of muscle Status: Resolved Current Visit: Yes Code(s): L97.513 - Non-pressure chronic ulcer of other part of right foot with necrosis of muscle Type of Wound Date of Service: 11/16/18 Chief Complaint: right and left Leg ulcers and right foot ulcer. New left foot ulcer History of Wound: Mr. Arguello is a 63-year-old male with multiple comorbidities follows up for delayed healing ulcers to the right foot as well as bilateral legs. It is noted he previously had widespread debridements and fasciotomies performed to bilateral lower extremities secondary to life-threatening and limb threatening infection; this was previously performed at [facility]. He continues to follow with Dr. Gilbert for her knee ulcers, and I saw him today for his other ulcer site of the right knee. He denies chills, fever or otherwise feeling of unwell. He presents today with his . He still refuses advanced wound care product application. He refuses hyperbaric oxygen therapy treatment. He is inquiring about insurance coverage and will bring the paperwork next week. He previously refused surgical intervention. He sent his wound VAC back as advised because he is completed this treatment course. His reports some new yellowish white drainage from the bottom of the left foot with an onset of approximately 4 days ago. She denies distinct redness however thought there may have been some bruising. He denies any known injury. Progress of Wound: Improving all ulcer sites. New left foot ulcer - Physical Exam Vital Signs Temp Pulse Resp BP 96.8 F L 101 H 18 144/84 H 11/16/18 08:14 11/16/18 08:14 11/16/18 08:14 11/16/18 08:14 General: Alert, Oriented x3, Cooperative Extremities: No cyanosis, Capillary Refill Less than 3 Seconds - Digits 1, 4, 5 right and all digits left foot, No Calf Tenderness - Negative Errol and Lobato sign bilateral, Diminished Peripheral Pulses, Edema - Mild bilateral lower extremities Skin: Ulcer/ Wound - No purulence, erythema, streaking, odor, or acute signs of infection lateral. There is a new skin discontinuity that is small in size to the plantar left metatarsal head region. There is no necrosis or deep tissue exposure at the site. Compared to last week, both necrotic tissue sites have significantly reduced. There is peripheral epithelialization noted all ulcer sites., - - The adjacent peripheral skin is hairless and atrophic. There is no interdigital maceration. Wound Measurements and Assessment WC - Nurse 1 - General Ulcer Measurement Start: 10/26/18 08:06 Freq: Status: Active Protocol: Activity Type Activity Date Activity User E-Sign Co-Sign Detail Recorded Client Recorded Date Recorded By Document 11/16/18 08:14 RB [id number] 11/16/18 08:52 RB 11/16/18 08:14 Wound Center Nurse 1 [Ulcer Assessment] #11 RIGHT MEDIAL FOOT -Combined with other wound No -Current Size (cm) - Length 13 -Current Size (cm) - Width 2.2 -Current Size (cm) - Depth 0.4 -Total Square Cm 28.6 -Photo Taken No -Tunneling No -Undermining/Tunneling No -Circular Undermining No -Exudate Amt Small (1-33%) -Exudate Type Serosanguineous -Wound Margin Distinct, Outline Attached -Granulation Amt Medium (34-66%) -Granulation Quality Normanna -Slough/Fibrin Yes -Necrosis Amt Medium (34-66%) -Necrotic Tissue Type Adherent Slough -Structure Exposed N/A -Texture (Lisa-wound Skin Appearance) Assessed -Moisture (Lisa-wound Skin Appearance Assessed ) -Color (Lisa-wound Skin Appearance) Assessed -Temperature (Lisa-wound Skin No Abnormality Appearance) (Pt Warm) -Tenderness on Palpation (Lisa-wound No Skin Appearance) -Ulcer Cleansing Rinsed/ Irrigated with Saline -Foul Odor after Cleansing No -Anesthetic Used 4% Lidocaine Solution #10 right heel -Combined with other wound No -Current Size (cm) - Length 0.5 -Current Size (cm) - Width 0.8 -Current Size (cm) - Depth 0.1 -Total Square Cm 0.40 -Photo Taken No -Tunneling No -Undermining/Tunneling No -Circular Undermining No -Exudate Amt Small (1-33%) -Exudate Type Serosanguineous -Wound Margin Distinct, Outline Attached -Granulation Amt Medium (34-66%) -Granulation Quality Normanna -Slough/Fibrin Yes -Necrosis Amt Small (1-33%) -Necrotic Tissue Type Adherent Slough -Structure Exposed N/A -Texture (Lisa-wound Skin Appearance) Assessed -Moisture (Lisa-wound Skin Appearance Assessed ) -Color (Lisa-wound Skin Appearance) Assessed -Temperature (Lisa-wound Skin No Abnormality Appearance) (Pt Warm) -Tenderness on Palpation (Lisa-wound No Skin Appearance) -Ulcer Cleansing Rinsed/ Irrigated with Saline -Foul Odor after Cleansing No -Anesthetic Used 4% Lidocaine Solution #8 r Knee -Combined with other wound No -Current Size (cm) - Length 1.2 -Current Size (cm) - Width 1.2 -Current Size (cm) - Depth 0.3 -Total Square Cm 1.44 -Photo Taken No -Tunneling No -Undermining/Tunneling No -Circular Undermining No -Exudate Amt Small (1-33%) -Exudate Type Serosanguineous -Wound Margin Distinct, Outline Attached -Granulation Amt Medium (34-66%) -Granulation Quality Normanna -Slough/Fibrin Yes -Necrosis Amt Small (1-33%) -Necrotic Tissue Type Adherent Slough -Structure Exposed N/A -Texture (Lisa-wound Skin Appearance) Assessed -Moisture (Lisa-wound Skin Appearance Assessed ) -Color (Lisa-wound Skin Appearance) Assessed -Temperature (Lisa-wound Skin No Abnormality Appearance) (Pt Warm) -Tenderness on Palpation (Lisa-wound No Skin Appearance) -Ulcer Cleansing Rinsed/ Irrigated with Saline -Foul Odor after Cleansing No -Anesthetic Used 4% Lidocaine Solution #6 L Post -Combined with other wound No -Current Size (cm) - Length 1.5 -Current Size (cm) - Width 1.5 -Current Size (cm) - Depth 0.4 -Total Square Cm 2.25 -Photo Taken No -Tunneling No -Undermining/Tunneling No -Circular Undermining No -Exudate Amt Small (1-33%) -Exudate Type Serosanguineous -Wound Margin Distinct, Outline Attached -Granulation Amt Medium (34-66%) -Granulation Quality Normanna -Slough/Fibrin Yes -Necrosis Amt Small (1-33%) -Necrotic Tissue Type Adherent Slough -Structure Exposed N/A -Texture (Lisa-wound Skin Appearance) Assessed -Moisture (Lisa-wound Skin Appearance Assessed ) -Color (Lisa-wound Skin Appearance) Assessed -Temperature (Lisa-wound Skin No Abnormality Appearance) (Pt Warm) -Tenderness on Palpation (Lisa-wound No Skin Appearance) -Ulcer Cleansing Rinsed/ Irrigated with Saline -Foul Odor after Cleansing No -Anesthetic Used 4% Lidocaine Solution #5 R Lat LE -Combined with other wound No -Current Size (cm) - Length 1.8 -Current Size (cm) - Width 1.5 -Current Size (cm) - Depth 0.3 -Total Square Cm 2.70 -Photo Taken No -Tunneling No -Undermining/Tunneling No -Circular Undermining No -Exudate Amt Small (1-33%) -Exudate Type Serosanguineous -Wound Margin Distinct, Outline Attached -Granulation Amt Medium (34-66%) -Granulation Quality Normanna -Slough/Fibrin Yes -Necrosis Amt Small (1-33%) -Necrotic Tissue Type Adherent Slough -Structure Exposed N/A -Texture (Lisa-wound Skin Appearance) Assessed -Moisture (Lisa-wound Skin Appearance Assessed ) -Color (Lisa-wound Skin Appearance) Assessed -Temperature (Lisa-wound Skin No Abnormality Appearance) (Pt Warm) -Tenderness on Palpation (Lisa-wound No Skin Appearance) -Ulcer Cleansing Rinsed/ Irrigated with Saline -Anesthetic Used 4% Lidocaine Solution #4 R post LE -Combined with other wound No -Current Size (cm) - Length 0.7 -Current Size (cm) - Width 1 -Current Size (cm) - Depth 0.1 -Total Square Cm 0.7 -Photo Taken No -Tunneling No -Undermining/Tunneling No -Circular Undermining No -Exudate Amt Small (1-33%) -Exudate Type Serosanguineous -Wound Margin Distinct, Outline Attached -Granulation Amt Medium (34-66%) -Granulation Quality Normanna -Structure Exposed N/A -Texture (Lisa-wound Skin Appearance) Assessed -Moisture (Lisa-wound Skin Appearance Assessed ) -Color (Lisa-wound Skin Appearance) Assessed -Temperature (Lisa-wound Skin No Abnormality Appearance) (Pt Warm) -Tenderness on Palpation (Lisa-wound No Skin Appearance) -Ulcer Cleansing Rinsed/ Irrigated with Saline -Foul Odor after Cleansing No -Anesthetic Used 4% Lidocaine Solution #3 R Med LE -Combined with other wound No -Current Size (cm) - Length 2 -Current Size (cm) - Width 0.4 -Current Size (cm) - Depth 0.5 -Total Square Cm 0.8 -Photo Taken No -Tunneling No -Undermining/Tunneling No -Circular Undermining No -Exudate Amt Small (1-33%) -Exudate Type Serosanguineous -Wound Margin Distinct, Outline Attached -Granulation Amt Medium (34-66%) -Granulation Quality Normanna -Slough/Fibrin Yes -Necrosis Amt Small (1-33%) -Necrotic Tissue Type Adherent Slough -Structure Exposed N/A -Texture (Lisa-wound Skin Appearance) Assessed -Moisture (Lisa-wound Skin Appearance Assessed ) -Color (Lisa-wound Skin Appearance) Assessed -Temperature (Lisa-wound Skin No Abnormality Appearance) (Pt Warm) -Tenderness on Palpation (Lisa-wound No Skin Appearance) -Ulcer Cleansing Rinsed/ Irrigated with Saline -Foul Odor after Cleansing No -Anesthetic Used 4% Lidocaine Solution #2 R [place] Cluster -Combined with other wound No -Current Size (cm) - Length 14.5 -Current Size (cm) - Width 2.9 -Current Size (cm) - Depth 0.2 -Total Square Cm 42.05 -Photo Taken No -Tunneling No -Undermining/Tunneling No -Circular Undermining No -Change in Wound Grade/Stage No Query Text:If change please identify the Stage/Grade in the comment (ie. S2 G3) -Exudate Amt Small (1-33%) -Exudate Type Serosanguineous -Wound Margin Distinct, Outline Attached -Granulation Amt Medium (34-66%) -Granulation Quality Normanna -Slough/Fibrin Yes -Necrosis Amt Small (1-33%) -Necrotic Tissue Type Adherent Slough -Structure Exposed N/A -Texture (Lisa-wound Skin Appearance) Assessed -Moisture (Lisa-wound Skin Appearance Assessed ) -Color (Lisa-wound Skin Appearance) Assessed -Temperature (Lisa-wound Skin No Abnormality Appearance) (Pt Warm) -Tenderness on Palpation (Lisa-wound No Skin Appearance) -Ulcer Cleansing Rinsed/ Irrigated with Saline -Foul Odor after Cleansing No -Anesthetic Used 4% Lidocaine Solution #1 R 2nd toe amp/Arch/ Med Ankle -Combined with other wound No -Current Size (cm) - Length 1.5 -Current Size (cm) - Width 0.5 -Current Size (cm) - Depth 0.2 -Total Square Cm 0.75 -Photo Taken No -Tunneling No -Undermining/Tunneling No -Circular Undermining No -Exudate Amt Small (1-33%) -Exudate Type Serosanguineous -Wound Margin Distinct, Outline Attached -Granulation Amt Medium (34-66%) -Granulation Quality Normanna -Slough/Fibrin Yes -Necrosis Amt Small (1-33%) -Necrotic Tissue Type Adherent Slough -Structure Exposed N/A -Texture (Lisa-wound Skin Appearance) Assessed -Moisture (Lisa-wound Skin Appearance Assessed ) -Color (Lisa-wound Skin Appearance) Assessed -Temperature (Lisa-wound Skin No Abnormality Appearance) (Pt Warm) -Tenderness on Palpation (Lisa-wound No Skin Appearance) -Ulcer Cleansing Rinsed/ Irrigated with Saline -Foul Odor after Cleansing No -Anesthetic Used 4% Lidocaine Solution [Edema Assessment] -Lower Limb Edema Present Yes -Right Calf (cm) 35 -Right Ankle (cm) 22 -Left Calf (cm) 32.8 -Left Ankle (cm) 21 WC - Nurse 2 - General Ulcer CM Notes Start: 10/26/18 08:06 Freq: Status: Active Protocol: Activity Type Activity Date Activity User E-Sign Co-Sign Detail Recorded Client Recorded Date Recorded By Document 11/16/18 09:00 JF [id number] 11/16/18 09:05 11/16/18 09:00 Wound Center Nurse 2 [Procedure/Treatment] #11 RIGHT MEDIAL FOOT -Time 09:00 -Correct Patient Yes -Correct Side, Site, Position Yes -Correct Procedure Yes -Procedure Performed Yes -Type of Procedure Debridement -Clinical Debridement Subcutaneous -Post Debridement Size (cm) - Length 1.6 -Post Debridement Size (cm) - Width 0.5 -Post Debridement Size (cm) - Depth 0.2 -Total Square Cm 0.80 -Wound/Ulcer Outcome Not Healed -Ulcer Cleansing Rinsed/ Irrigated with Saline -Foul Odor after Cleansing No -Bioengineered Tissue No -Bleeding Controlled with Pressure -Offloading No -Treatment Response Procedure Tolerated Well #10 right heel -Time 09:01 -Correct Patient No -Correct Side, Site, Position No -Correct Procedure No -Procedure Performed No -Post Debridement Size (cm) - Length 0 -Post Debridement Size (cm) - Width 0 -Post Debridement Size (cm) - Depth 0 -Total Square Cm 0 -Wound/Ulcer Outcome Healed- Epithelialized -Ulcer Cleansing Rinsed/ Irrigated with Saline -Treatment Response Procedure Tolerated Well #8 r Knee -Correct Patient No -Correct Side, Site, Position No -Correct Procedure No -Procedure Performed No #6 L Post -Time 09:01 -Correct Patient Yes -Correct Side, Site, Position Yes -Correct Procedure Yes -Procedure Performed Yes -Type of Procedure Debridement -Clinical Debridement Subcutaneous -Post Debridement Size (cm) - Length 1.5 -Post Debridement Size (cm) - Width 1.6 -Post Debridement Size (cm) - Depth 0.4 -Total Square Cm 2.40 -Wound/Ulcer Outcome Not Healed -Ulcer Cleansing Rinsed/ Irrigated with Saline -Foul Odor after Cleansing No -Bioengineered Tissue No -Bleeding Controlled with Pressure -Offloading No -Treatment Response Procedure Tolerated Well #5 R Lat LE -Time 09:02 -Correct Patient Yes -Correct Side, Site, Position Yes -Correct Procedure Yes -Procedure Performed Yes -Type of Procedure Debridement -Clinical Debridement Subcutaneous -Post Debridement Size (cm) - Length 1.8 -Post Debridement Size (cm) - Width 1.6 -Post Debridement Size (cm) - Depth 0.3 -Total Square Cm 2.88 -Wound/Ulcer Outcome Not Healed -Ulcer Cleansing Rinsed/ Irrigated with Saline -Bioengineered Tissue No -Bleeding Controlled with Pressure -Offloading No -Treatment Response Procedure Tolerated Well #4 R post LE -Time 09:03 -Correct Patient Yes -Correct Side, Site, Position Yes -Correct Procedure Yes -Procedure Performed Yes -Type of Procedure Debridement -Clinical Debridement Subcutaneous -Post Debridement Size (cm) - Length 0.8 -Post Debridement Size (cm) - Width 1 -Post Debridement Size (cm) - Depth 0.1 -Total Square Cm 0.8 -Wound/Ulcer Outcome Not Healed -Ulcer Cleansing Rinsed/ Irrigated with Saline -Foul Odor after Cleansing No -Bioengineered Tissue No -Bleeding Controlled with Pressure -Offloading No -Treatment Response Procedure Tolerated Well #3 R Med LE -Time 09:04 -Correct Patient Yes -Correct Side, Site, Position Yes -Correct Procedure Yes -Procedure Performed Yes -Type of Procedure Debridement -Clinical Debridement Subcutaneous -Post Debridement Size (cm) - Length 2 -Post Debridement Size (cm) - Width 0.5 -Post Debridement Size (cm) - Depth 0.5 -Total Square Cm 1.0 -Wound/Ulcer Outcome Not Healed -Ulcer Cleansing Rinsed/ Irrigated with Saline -Foul Odor after Cleansing No -Bioengineered Tissue No -Bleeding Controlled with Pressure -Offloading No -Treatment Response Procedure Tolerated Well #2 R Orellana Cluster -Time 09:04 -Correct Patient Yes -Correct Side, Site, Position Yes -Correct Procedure Yes -Procedure Performed Yes -Type of Procedure Debridement -Clinical Debridement Subcutaneous -Post Debridement Size (cm) - Length 14.5 -Post Debridement Size (cm) - Width 3 -Post Debridement Size (cm) - Depth 0.2 -Total Square Cm 43.5 -Wound/Ulcer Outcome Not Healed -Ulcer Cleansing Rinsed/ Irrigated with Saline -Foul Odor after Cleansing No -Bioengineered Tissue No -Bleeding Controlled with Pressure -Offloading No -Treatment Response Procedure Tolerated Well #1 R 2nd toe amp/Arch/ Med Ankle -Time 09:04 -Correct Patient Yes -Correct Side, Site, Position Yes -Correct Procedure Yes -Procedure Performed Yes -Type of Procedure Debridement -Clinical Debridement Subcutaneous -Post Debridement Size (cm) - Length 1.5 -Post Debridement Size (cm) - Width 0.6 -Post Debridement Size (cm) - Depth 0.2 -Total Square Cm 0.90 -Wound/Ulcer Outcome Not Healed -Ulcer Cleansing Rinsed/ Irrigated with Saline -Foul Odor after Cleansing No -Bioengineered Tissue No -Bleeding Controlled with Pressure -Offloading No -Treatment Response Procedure Tolerated Well [See Physician Procedure note for Specifics] Pain Scale: 0-10 Numeric [Pain] -Is Patient Pain Free? Yes Musculoskeletal: No Tenderness to Palpation of Joints or Extremities, Muscle Wasting, - - Open second and third ray resections right foot. Compartments remain soft to palpate bilateral lower extremities Neurological: - - Lack of normal epicritic sensation light touch bilateral lower extremities Psych/Mental Status: Normal Affect, Appropriate Debridement Note Post-Debridement Measurements/Treatment WC - Nurse 2 - General Ulcer CM Notes Start: 10/26/18 08:06 Freq: Status: Active Protocol: Activity Type Activity Date Activity User E-Sign Co-Sign Detail Recorded Client Recorded Date Recorded By Document 10/26/18 09:03 TM [id number] 10/26/18 09:10 TM Document 11/02/18 08:44 JF [id number] 11/02/18 08:51 JF Document 11/02/18 09:34 MW [id number] 11/02/18 09:35 MW Document 11/09/18 09:03 JF [id number] 11/09/18 09:11 JF Document 11/09/18 09:19 MW [id number] 11/09/18 09:20 MW Document 11/16/18 09:00 JF [id number] 11/16/18 09:05 JF 10/26/18 11/02/18 11/02/18 09:03 08:44 09:34 Wound Center Nurse 2 #11 RIGHT MEDIAL FOOT -Time 08:44 -Correct Patient Yes -Correct Side, Site, Position Yes -Correct Procedure Yes -Procedure Performed Yes -Type of Procedure Debridement -Clinical Debridement Subcutaneous -Post Debridement Size (cm) - Length 12.1 -Post Debridement Size (cm) - Width 2 -Post Debridement Size (cm) - Depth 0.2 -Total Square Cm 24.2 -Wound/Ulcer Outcome Not Healed -Ulcer Cleansing Rinsed/ Irrigated with Saline -Foul Odor after Cleansing No -Bioengineered Tissue No -Bleeding Controlled with Pressure -Offloading No -Treatment Response Procedure Tolerated Well #10 right heel -Time 09:05 08:45 -Correct Patient Yes Yes -Correct Side, Site, Position Yes Yes -Correct Procedure Yes Yes -Procedure Performed Yes Yes -Type of Procedure Debridement Debridement -Clinical Debridement Subcutaneous Subcutaneous -Post Debridement Size (cm) - Length 0.9 0.6 -Post Debridement Size (cm) - Width 0.4 1 -Post Debridement Size (cm) - Depth 0.1 0.2 -Total Square Cm 0.36 0.6 -Wound/Ulcer Outcome Not Healed Not Healed -Ulcer Cleansing Rinsed/ Rinsed/ Irrigated with Irrigated with Saline Saline -Foul Odor after Cleansing No No -Bioengineered Tissue No No -Topical Lidocaine (%) 4 -Bleeding Controlled with Pressure Pressure -Offloading Yes No -Type of Offloading Camwalker -Treatment Response Procedure Procedure Tolerated Well Tolerated Well 9.L knee -Time 09:34 -Correct Patient Yes -Correct Side, Site, Position Yes -Correct Procedure Yes -Procedure Performed No -Post Debridement Size (cm) - Length 0.1 -Post Debridement Size (cm) - Width 0.1 -Post Debridement Size (cm) - Depth 0.1 -Total Square Cm 0.01 -Wound/Ulcer Outcome Not Healed -Ulcer Cleansing Rinsed/ Irrigated with Saline -Foul Odor after Cleansing No -Bioengineered Tissue No -Bleeding Controlled with NA -Offloading No -Treatment Response Procedure Tolerated Well #8 r Knee -Time 09:34 -Correct Patient Yes -Correct Side, Site, Position Yes -Correct Procedure Yes -Procedure Performed Yes -Type of Procedure Debridement -Clinical Debridement Subcutaneous -Post Debridement Size (cm) - Length 1.2 -Post Debridement Size (cm) - Width 1.5 -Post Debridement Size (cm) - Depth 0.3 -Total Square Cm 1.80 -Wound/Ulcer Outcome Not Healed -Ulcer Cleansing Rinsed/ Irrigated with Saline -Foul Odor after Cleansing No -Bioengineered Tissue No -Bleeding Controlled with Pressure -Offloading No -Type of Offloading -Treatment Response Procedure Tolerated Well #6 L Post -Time 09:06 08:46 -Correct Patient Yes Yes -Correct Side, Site, Position Yes Yes -Correct Procedure Yes Yes -Procedure Performed Yes Yes -Type of Procedure Debridement Debridement -Clinical Debridement Subcutaneous Subcutaneous -Post Debridement Size (cm) - Length 21.1 21 -Post Debridement Size (cm) - Width 1.7 1.9 -Post Debridement Size (cm) - Depth 0.1 0.3 -Total Square Cm 35.87 39.9 -Wound/Ulcer Outcome Not Healed Not Healed -Ulcer Cleansing Rinsed/ Rinsed/ Irrigated with Irrigated with Saline Saline -Foul Odor after Cleansing No No -Bioengineered Tissue No No -Topical Lidocaine (%) 4 -Bleeding Controlled with Pressure Pressure -Offloading Yes No -Treatment Response Procedure Procedure Tolerated Well Tolerated Well #5 R Lat LE -Time 09:07 08:46 -Correct Patient Yes Yes -Correct Side, Site, Position Yes Yes -Correct Procedure Yes Yes -Procedure Performed Yes Yes -Type of Procedure Debridement Debridement -Clinical Debridement Subcutaneous Subcutaneous -Post Debridement Size (cm) - Length 1.9 1.5 -Post Debridement Size (cm) - Width 1.6 1.4 -Post Debridement Size (cm) - Depth 0.2 0.3 -Total Square Cm 3.04 2.10 -Wound/Ulcer Outcome Not Healed Not Healed -Ulcer Cleansing Rinsed/ Rinsed/ Irrigated with Irrigated with Saline Saline -Foul Odor after Cleansing No No -Bioengineered Tissue No No -Topical Lidocaine (%) 4 -Bleeding Controlled with Pressure Pressure -Offloading Yes No -Type of Offloading Camwalker -Treatment Response Procedure Procedure Tolerated Well Tolerated Well #4 R post LE -Time 09:07 08:46 -Correct Patient Yes Yes -Correct Side, Site, Position Yes Yes -Correct Procedure Yes Yes -Procedure Performed Yes Yes -Type of Procedure Debridement Debridement -Clinical Debridement Subcutaneous Subcutaneous -Post Debridement Size (cm) - Length 0.9 0.8 -Post Debridement Size (cm) - Width 0.6 0.6 -Post Debridement Size (cm) - Depth 0.2 0.2 -Total Square Cm 0.54 0.48 -Wound/Ulcer Outcome Not Healed Not Healed -Ulcer Cleansing Rinsed/ Rinsed/ Irrigated with Irrigated with Saline Saline -Foul Odor after Cleansing No No -Bioengineered Tissue No No -Topical Lidocaine (%) 4 -Bleeding Controlled with Pressure Pressure -Offloading No -Type of Offloading Camwalker -Treatment Response Procedure Procedure Tolerated Well Tolerated Well #3 R Med LE -Time 09:08 08:47 -Correct Patient Yes Yes -Correct Side, Site, Position Yes Yes -Correct Procedure Yes Yes -Procedure Performed Yes Yes -Type of Procedure Debridement Debridement -Clinical Debridement Subcutaneous Subcutaneous -Post Debridement Size (cm) - Length 2.6 1.8 -Post Debridement Size (cm) - Width 0.7 0.5 -Post Debridement Size (cm) - Depth 0.6 0.4 -Total Square Cm 1.82 0.90 -Wound/Ulcer Outcome Not Healed Not Healed -Ulcer Cleansing Rinsed/ Rinsed/ Irrigated with Irrigated with Saline Saline -Foul Odor after Cleansing No No -Bioengineered Tissue No No -Topical Lidocaine (%) 4 -Bleeding Controlled with Pressure Pressure -Offloading Yes No -Type of Offloading Camwalker -Treatment Response Procedure Procedure Tolerated Well Tolerated Well #2 R [place] Cluster -Time 09: 08:47 -Correct Patient Yes Yes -Correct Side, Site, Position Yes Yes -Correct Procedure Yes Yes -Procedure Performed Yes Yes -Type of Procedure Debridement Debridement -Clinical Debridement Subcutaneous Subcutaneous -Post Debridement Size (cm) - Length 11.6 10.8 -Post Debridement Size (cm) - Width 3.1 3.1 -Post Debridement Size (cm) - Depth 0.1 0.1 -Total Square Cm 35.96 33.48 -Wound/Ulcer Outcome Not Healed Not Healed -Ulcer Cleansing Rinsed/ Rinsed/ Irrigated with Irrigated with Saline Saline -Foul Odor after Cleansing No No -Bioengineered Tissue No No -Topical Lidocaine (%) 4 -Bleeding Controlled with Pressure Pressure -Offloading Yes No -Type of Offloading Camwalker -Treatment Response Procedure Procedure Tolerated Well Tolerated Well #1 R 2nd toe amp/Arch/ Med Ankle -Time 09: 08:47 -Correct Patient Yes Yes -Correct Side, Site, Position Yes Yes -Correct Procedure Yes Yes -Procedure Performed Yes Yes -Type of Procedure Debridement Debridement -Clinical Debridement Subcutaneous Subcutaneous -Post Debridement Size (cm) - Length 25.3 3 -Post Debridement Size (cm) - Width 2.4 0.4 -Post Debridement Size (cm) - Depth 1.1 0.7 -Total Square Cm 60.72 1.2 -Wound/Ulcer Outcome Not Healed Not Healed -Ulcer Cleansing Rinsed/ Rinsed/ Irrigated with Irrigated with Saline Saline -Foul Odor after Cleansing No No -Bioengineered Tissue No No -Topical Lidocaine (%) 4 -Bleeding Controlled with Pressure Pressure -Offloading Yes No -Type of Offloading Camwalker -Treatment Response Procedure Procedure Tolerated Well Tolerated Well Pain Scale: 0-10 Numeric Is Patient Pain Free? Yes Yes 11/09/18 11/09/18 11/16/18 09:03 09:19 09:00 Wound Center Nurse 2 #11 RIGHT MEDIAL FOOT -Time 09:06 09:00 -Correct Patient Yes Yes -Correct Side, Site, Position Yes Yes -Correct Procedure Yes Yes -Procedure Performed Yes Yes -Type of Procedure Debridement Debridement -Clinical Debridement Subcutaneous Subcutaneous -Post Debridement Size (cm) - Length 12.5 1.6 -Post Debridement Size (cm) - Width 2.1 0.5 -Post Debridement Size (cm) - Depth 0.5 0.2 -Total Square Cm 26.25 0.80 -Wound/Ulcer Outcome Not Healed Not Healed -Ulcer Cleansing Rinsed/ Rinsed/ Irrigated with Irrigated with Saline Saline -Foul Odor after Cleansing No No -Bioengineered Tissue No No -Bleeding Controlled with Pressure Pressure -Offloading No No -Treatment Response Procedure Procedure Tolerated Well Tolerated Well #10 right heel -Time 09:06 09:01 -Correct Patient Yes No -Correct Side, Site, Position Yes No -Correct Procedure Yes No -Procedure Performed Yes No -Type of Procedure Debridement -Clinical Debridement Subcutaneous -Post Debridement Size (cm) - Length 0.2 0 -Post Debridement Size (cm) - Width 0.2 0 -Post Debridement Size (cm) - Depth 0.1 0 -Total Square Cm 0.04 0 -Wound/Ulcer Outcome Not Healed Healed- Epithelialized -Ulcer Cleansing Rinsed/ Rinsed/ Irrigated with Irrigated with Saline Saline -Foul Odor after Cleansing No -Bioengineered Tissue No -Topical Lidocaine (%) -Bleeding Controlled with Pressure -Offloading No -Type of Offloading -Treatment Response Procedure Procedure Tolerated Well Tolerated Well 9.L knee -Time 09:19 -Correct Patient Yes -Correct Side, Site, Position Yes -Correct Procedure Yes -Procedure Performed No -Post Debridement Size (cm) - Length -Post Debridement Size (cm) - Width -Post Debridement Size (cm) - Depth -Total Square Cm -Wound/Ulcer Outcome Healed- Epithelialized -Ulcer Cleansing -Foul Odor after Cleansing -Bioengineered Tissue -Bleeding Controlled with -Offloading -Treatment Response #8 r Knee -Time 09:19 -Correct Patient Yes No -Correct Side, Site, Position Yes No -Correct Procedure Yes No -Procedure Performed Yes No -Type of Procedure Debridement -Clinical Debridement Subcutaneous -Post Debridement Size (cm) - Length 0.8 -Post Debridement Size (cm) - Width 1.0 -Post Debridement Size (cm) - Depth 0.2 -Total Square Cm 0.80 -Wound/Ulcer Outcome Not Healed -Ulcer Cleansing Rinsed/ Irrigated with Saline -Foul Odor after Cleansing No -Bioengineered Tissue No -Bleeding Controlled with Pressure -Offloading -Type of Offloading Total Contact Cast (TCC) -Treatment Response Procedure Tolerated Well #6 L Post -Time 09:07 09:01 -Correct Patient Yes Yes -Correct Side, Site, Position Yes Yes -Correct Procedure Yes Yes -Procedure Performed Yes Yes -Type of Procedure Debridement Debridement -Clinical Debridement Subcutaneous Subcutaneous -Post Debridement Size (cm) - Length 21.1 1.5 -Post Debridement Size (cm) - Width 2 1.6 -Post Debridement Size (cm) - Depth 0.5 0.4 -Total Square Cm 42.2 2.40 -Wound/Ulcer Outcome Not Healed Not Healed -Ulcer Cleansing Rinsed/ Rinsed/ Irrigated with Irrigated with Saline Saline -Foul Odor after Cleansing No No -Bioengineered Tissue No No -Topical Lidocaine (%) -Bleeding Controlled with Pressure Pressure -Offloading No No -Treatment Response Procedure Procedure Tolerated Well Tolerated Well #5 R Lat LE -Time 09:07 09:02 -Correct Patient Yes Yes -Correct Side, Site, Position Yes Yes -Correct Procedure Yes Yes -Procedure Performed Yes Yes -Type of Procedure Debridement Debridement -Clinical Debridement Subcutaneous Subcutaneous -Post Debridement Size (cm) - Length 1.8 1.8 -Post Debridement Size (cm) - Width 1.3 1.6 -Post Debridement Size (cm) - Depth 0.2 0.3 -Total Square Cm 2.34 2.88 -Wound/Ulcer Outcome Not Healed Not Healed -Ulcer Cleansing Rinsed/ Rinsed/ Irrigated with Irrigated with Saline Saline -Foul Odor after Cleansing No -Bioengineered Tissue No No -Topical Lidocaine (%) -Bleeding Controlled with Pressure Pressure -Offloading No No -Type of Offloading -Treatment Response Procedure Procedure Tolerated Well Tolerated Well #4 R post LE -Time 09:07 09:03 -Correct Patient Yes Yes -Correct Side, Site, Position Yes Yes -Correct Procedure Yes Yes -Procedure Performed Yes Yes -Type of Procedure Debridement Debridement -Clinical Debridement Subcutaneous Subcutaneous -Post Debridement Size (cm) - Length 0.6 0.8 -Post Debridement Size (cm) - Width 0.6 1 -Post Debridement Size (cm) - Depth 0.2 0.1 -Total Square Cm 0.36 0.8 -Wound/Ulcer Outcome Not Healed Not Healed -Ulcer Cleansing Rinsed/ Rinsed/ Irrigated with Irrigated with Saline Saline -Foul Odor after Cleansing No No -Bioengineered Tissue No No -Topical Lidocaine (%) -Bleeding Controlled with Pressure Pressure -Offloading No No -Type of Offloading -Treatment Response Procedure Procedure Tolerated Well Tolerated Well #3 R [facility] LE -Time 09:08 09:04 -Correct Patient Yes Yes -Correct Side, Site, Position Yes Yes -Correct Procedure Yes Yes -Procedure Performed Yes Yes -Type of Procedure Debridement Debridement -Clinical Debridement Subcutaneous Subcutaneous -Post Debridement Size (cm) - Length 1.8 2 -Post Debridement Size (cm) - Width 0.5 0.5 -Post Debridement Size (cm) - Depth 0.6 0.5 -Total Square Cm 0.90 1.0 -Wound/Ulcer Outcome Not Healed Not Healed -Ulcer Cleansing Rinsed/ Rinsed/ Irrigated with Irrigated with Saline Saline -Foul Odor after Cleansing No No -Bioengineered Tissue No No -Topical Lidocaine (%) -Bleeding Controlled with Pressure Pressure -Offloading No No -Type of Offloading -Treatment Response Procedure Procedure Tolerated Well Tolerated Well #2 R [place] Cluster -Time 09:08 09:04 -Correct Patient Yes Yes -Correct Side, Site, Position Yes Yes -Correct Procedure Yes Yes -Procedure Performed Yes Yes -Type of Procedure Debridement Debridement -Clinical Debridement Subcutaneous Subcutaneous -Post Debridement Size (cm) - Length 10.5 14.5 -Post Debridement Size (cm) - Width 2.3 3 -Post Debridement Size (cm) - Depth 0.2 0.2 -Total Square Cm 24.15 43.5 -Wound/Ulcer Outcome Not Healed Not Healed -Ulcer Cleansing Rinsed/ Rinsed/ Irrigated with Irrigated with Saline Saline -Foul Odor after Cleansing No No -Bioengineered Tissue No No -Topical Lidocaine (%) -Bleeding Controlled with Pressure Pressure -Offloading No No -Type of Offloading -Treatment Response Procedure Procedure Tolerated Well Tolerated Well #1 R 2nd toe amp/Arch/ Med Ankle -Time 09:09 09:04 -Correct Patient Yes Yes -Correct Side, Site, Position Yes Yes -Correct Procedure Yes Yes -Procedure Performed Yes Yes -Type of Procedure Debridement Debridement -Clinical Debridement Subcutaneous Subcutaneous -Post Debridement Size (cm) - Length 2.5 1.5 -Post Debridement Size (cm) - Width 0.5 0.6 -Post Debridement Size (cm) - Depth 0.5 0.2 -Total Square Cm 1.25 0.90 -Wound/Ulcer Outcome Not Healed Not Healed -Ulcer Cleansing Rinsed/ Rinsed/ Irrigated with Irrigated with Saline Saline -Foul Odor after Cleansing No No -Bioengineered Tissue No No -Topical Lidocaine (%) -Bleeding Controlled with Pressure Pressure -Offloading No No -Type of Offloading -Treatment Response Procedure Procedure Tolerated Well Tolerated Well Pain Scale: 0-10 Numeric Is Patient Pain Free? Yes Yes Yes Wound debrided: forefoot Laterality: Right Wound Grade/Stage: grade 3 Type of Debridement: Excisional debridement Anesthesia Used: 5% Lidocaine Gel Depth: in the subcutaneous layer Percentage of wound debrided: 100 Instrument Used: 7mm curette Tissue Removed: fibrous, devitalized subcutaneous, biofilm, slough Severity: Fat Layer Exposed Amount of bleeding with debridement: Mild Bleeding Controlled with: Pressure Patient tolerated procedure well - Additional Wound Wound debrided: ankle/foot Laterality: Right Wound Grade/Stage: grade 3 Type of Debridement: Excisional debridement Anesthesia Used: 5% Lidocaine Gel Depth: in the subcutaneous layer Percentage of wound debrided: 100 Instrument Used: 7mm curette Tissue Removed: fibrous, devitalized subcutaneous, biofilm, slough Severity: Fat Layer Exposed Amount of bleeding with debridement: Mild Bleeding Controlled with: Pressure Patient tolerated procedure: Patient tolerated procedure well - Additional Wound Wound debrided: anterior leg Laterality: Right Wound Grade/Stage: grade 1 Type of Debridement: Excisional debridement Anesthesia Used: 5% Lidocaine Gel Depth: in the subcutaneous layer Percentage of wound debrided: 100 Instrument Used: 7mm curette Tissue Removed: fibrous, devitalized subcutaneous, biofilm, slough Severity: Fat Layer Exposed Amount of bleeding with debridement: Mild Bleeding Controlled with: Pressure Patient tolerated procedure: Patient tolerated procedure well - Additional Wound Wound debrided: lateral leg Laterality: Right Wound Grade/Stage: grade 1 Type of Debridement: Excisional debridement Anesthesia Used: 5% Lidocaine Gel Depth: in the subcutaneous layer Percentage of wound debrided: 100 Instrument Used: 7mm curette Tissue Removed: fibrous, devitalized subcutaneous, biofilm, slough Severity: Fat Layer Exposed Amount of bleeding with debridement: Mild Bleeding Controlled with: Pressure Patient tolerated procedure: Patient tolerated procedure well - Additional Wound Wound debrided: posterior leg Wound Grade/Stage: grade 1 Type of Debridement: Excisional debridement Anesthesia Used: 5% Lidocaine Gel Depth: in the subcutaneous layer Percentage of wound debrided: 100 Instrument Used: 7mm curette Tissue Removed: fibrous, devitalized subcutaneous, biofilm, slough Severity: Fat Layer Exposed Amount of bleeding with debridement: Mild Bleeding Controlled with: Pressure Patient tolerated procedure: Patient tolerated procedure well - Additional Wound Wound debrided: medial leg Laterality: Right Wound Grade/Stage: grade 1 Type of Debridement: Excisional debridement Anesthesia Used: 5% Lidocaine Gel Depth: in the subcutaneous layer Percentage of wound debrided: 100 Instrument Used: 7mm curette Tissue Removed: fibrous, devitalized subcutaneous, biofilm, slough Severity: Fat Layer Exposed Amount of bleeding with debridement: Mild Bleeding Controlled with: Pressure Patient tolerated procedure: Patient tolerated procedure well - Additional Wound Wound debrided: plantar foot Laterality: Left Wound Grade/Stage: grade 1 Type of Debridement: Excisional debridement Anesthesia Used: 5% Lidocaine Gel Depth: in the subcutaneous layer Percentage of wound debrided: 100 Instrument Used: 7mm curette Tissue Removed: fibrous, devitalized subcutaneous, biofilm, slough Severity: Fat Layer Exposed Amount of bleeding with debridement: None Bleeding Controlled with: Pressure Patient tolerated procedure: Patient tolerated procedure well - Additional Wound Wound debrided: posterior leg Laterality: Left Wound Grade/Stage: grade 2 Type of Debridement: Excisional debridement Anesthesia Used: 5% Lidocaine Gel Depth: in the subcutaneous layer Percentage of wound debrided: 100 Instrument Used: 7mm curette Tissue Removed: fibrous, devitalized subcutaneous, biofilm, slough Severity: Fat Layer Exposed Amount of bleeding with debridement: Mild Bleeding Controlled with: Pressure Patient tolerated procedure: Patient tolerated procedure well Assessment/Plan Active Problems (Last Updated 09/28/18 @ 12:41 by Geraldine Steele) Ulcer of right foot with fat layer exposed (Chronic) 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) Skin ulcer of right knee with fat layer exposed (Chronic) Skin ulcer of left knee with fat layer exposed (Chronic) Delayed wound healing (Chronic) 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) Tobacco dependence due to cigarettes (Chronic) Ulcer of right lower extremity with fat layer exposed (Chronic) Ulcer of left lower extremity with fat layer exposed (Chronic) 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) Type 2 diabetes mellitus with diabetic polyneuropathy (Chronic) Localized edema (Chronic) Assessment: Open second and third ray resection secondary to 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 Diabetic neuropathy. Malnutrition suspected. 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 Delayed healing. Gait impairment and fall risk. Other comorbidities, right knee ulcer, tendon exposed (Dr. Gilbert managed), left knee ulcer (Dr. Gilbert managed) Plan: I reviewed and discussed his case with the patient and the patient's . Subcutaneous debridements were performed as noted in the clinical panel. I Recommended changing the dressings daily home nursing staff assistance with santyl to right knee (per Dr. Gilbert), and aquacel ag to the leg ulcers, santyl to devitalized tendon zones (right anterior leg and left posterior proximal ulcer site. I also recommend he applies Aquacel to the new left foot ulcer site. I do not appreciate any local signs of infection at this time. There is no purulence on expression, redness, or swelling to the site. To monitor closely and call immediately if this returns. The ulcer sites have improved quality with granulation tissue. He has completed a 6 weeks of IV antibiotic of Unasyn. I recommend he avoids laying directly on his wounds to reduce pressure, and I was concerned about his perfusion to his limbs. He had an arterial Doppler scheduled with Dr. Morgan's staff on August 02, 2018 and overall perfusion was confirmed; additional intervention or workup was not recommended. It is also noted that he did have venous Doppler performed with reflux evaluation. He did not have evidence of deep venous thrombosis or venous insufficiency at that time; the vessels were compressible. To continue with nutritional supplementation optimize healing; I recommend Juan. I recommend he sustained from smoking and alcohol activities to optimize healing as well. His workup for vasculitis and underlying autoimmune disorder is also pending. A punch biopsy was sent during his last surgical intervention on June 10 and this demonstrated inflammatory changes without malignancy. He had initial screening labs and so far he has a negative RA titer, HL of the 27, KEVIN, anti-CCP, and rheumatoid factor. Several his antibody screenings were not reportable. Hyperbaric oxygen therapy was recommended and it is noted his ejection fraction was most recently 50%. He refuses at this time. Dr. Gilbert continues to manage his bilateral knee ulcers including debridements and traditional wound care plan. He refuses surgical intervention at this time to bilateral lower extremities. I answered all of his questions. Additional amputation of the right foot is not planned due to his fairly nonambulatory status. Smoking cessation was discussed in detail again today and compliance is imperative to optimize healing of surgical success. I recommend further follow-up at the wound care center 1 week with me, or call sooner if he has any questions. Compliance at this advanced wound care center was reviewed. He understands additional palliative care programs are an option if he does not wish to proceed with advanced wound care opportunities that has been recommended. He is a complex care candidate.
--- NOTE | 2018-11-16 10:38 | PCM.WC.PN ---
(1) Skin ulcer of left knee with fat layer exposed Status: Chronic Current Visit: Yes Code(s): L97.822 - Non-pressure chronic ulcer of other part of left lower leg with fat layer exposed (2) Skin ulcer of right knee with fat layer exposed Status: Chronic Current Visit: Yes Code(s): L97.812 - Non-pressure chronic ulcer of other part of right lower leg with fat layer exposed Type of Wound Chief Complaint: right and left Leg ulcers and right foot ulcer. New left foot ulcer History of Wound: Mr. Arguello is a 63-year-old male with multiple comorbidities follows up for delayed healing ulcers to the right foot as well as bilateral legs. It is noted he previously had widespread debridements and fasciotomies performed to bilateral lower extremities secondary to life-threatening and limb threatening infection; this was previously performed at [facility]. He continues to follow with Dr. Gilbert for her knee ulcers, and I saw him today for his other ulcer site of the right knee. He denies chills, fever or otherwise feeling of unwell. He presents today with his . He still refuses advanced wound care product application. He refuses hyperbaric oxygen therapy treatment. He is inquiring about insurance coverage and will bring the paperwork next week. He previously refused surgical intervention. He sent his wound VAC back as advised because he is completed this treatment course. His reports some new yellowish white drainage from the bottom of the left foot with an onset of approximately 4 days ago. She denies distinct redness however thought there may have been some bruising. He denies any known injury. Progress of Wound: Improving right knee. - Physical Exam Vital Signs Temp Pulse Resp BP 96.8 F L 101 H 18 144/84 H 11/16/18 08:14 11/16/18 08:14 11/16/18 08:14 11/16/18 08:14 General: Alert, Oriented x3, Cooperative, No apparent distress HEENT: Atraumatic, Normocephalic Oral: Moist Mucosa Neck: Supple Lungs: Normal air movement Abdomen: Non Tender Extremities: No cyanosis Skin: Ulcer/ Wound Wound Measurements and Assessment WC - Nurse 1 - General Ulcer Measurement Start: 10/26/18 08:06 Freq: Status: Active Protocol: Activity Type Activity Date Activity User E-Sign Co-Sign Detail Recorded Client Recorded Date Recorded By Document 11/16/18 08:14 RB [id number] 11/16/18 08:52 RB 11/16/18 08:14 Wound Center Nurse 1 [Ulcer Assessment] #11 RIGHT MEDIAL FOOT -Combined with other wound No -Current Size (cm) - Length 13 -Current Size (cm) - Width 2.2 -Current Size (cm) - Depth 0.4 -Total Square Cm 28.6 -Photo Taken No -Tunneling No -Undermining/Tunneling No -Circular Undermining No -Exudate Amt Small (1-33%) -Exudate Type Serosanguineous -Wound Margin Distinct, Outline Attached -Granulation Amt Medium (34-66%) -Granulation Quality [place] -Slough/Fibrin Yes -Necrosis Amt Medium (34-66%) -Necrotic Tissue Type Adherent Slough -Structure Exposed N/A -Texture (Lisa-wound Skin Appearance) Assessed -Moisture (Lisa-wound Skin Appearance Assessed ) -Color (Ilsa-wound Skin Appearance) Assessed -Temperature (Lisa-wound Skin No Abnormality Appearance) (Pt Warm) -Tenderness on Palpation (Lisa-wound No Skin Appearance) -Ulcer Cleansing Rinsed/ Irrigated with Saline -Foul Odor after Cleansing No -Anesthetic Used 4% Lidocaine Solution #10 right heel -Combined with other wound No -Current Size (cm) - Length 0.5 -Current Size (cm) - Width 0.8 -Current Size (cm) - Depth 0.1 -Total Square Cm 0.40 -Photo Taken No -Tunneling No -Undermining/Tunneling No -Circular Undermining No -Exudate Amt Small (1-33%) -Exudate Type Serosanguineous -Wound Margin Distinct, Outline Attached -Granulation Amt Medium (34-66%) -Granulation Quality [place] -Slough/Fibrin Yes -Necrosis Amt Small (1-33%) -Necrotic Tissue Type Adherent Slough -Structure Exposed N/A -Texture (Lisa-wound Skin Appearance) Assessed -Moisture (Lisa-wound Skin Appearance Assessed ) -Color (Lisa-wound Skin Appearance) Assessed -Temperature (Lisa-wound Skin No Abnormality Appearance) (Pt Warm) -Tenderness on Palpation (Lisa-wound No Skin Appearance) -Ulcer Cleansing Rinsed/ Irrigated with Saline -Foul Odor after Cleansing No -Anesthetic Used 4% Lidocaine Solution #8 r Knee -Combined with other wound No -Current Size (cm) - Length 1.2 -Current Size (cm) - Width 1.2 -Current Size (cm) - Depth 0.3 -Total Square Cm 1.44 -Photo Taken No -Tunneling No -Undermining/Tunneling No -Circular Undermining No -Exudate Amt Small (1-33%) -Exudate Type Serosanguineous -Wound Margin Distinct, Outline Attached -Granulation Amt Medium (34-66%) -Granulation Quality [place] -Slough/Fibrin Yes -Necrosis Amt Small (1-33%) -Necrotic Tissue Type Adherent Slough -Structure Exposed N/A -Texture (Lisa-wound Skin Appearance) Assessed -Moisture (Lisa-wound Skin Appearance Assessed ) -Color (Lisa-wound Skin Appearance) Assessed -Temperature (Lisa-wound Skin No Abnormality Appearance) (Pt Warm) -Tenderness on Palpation (Lisa-wound No Skin Appearance) -Ulcer Cleansing Rinsed/ Irrigated with Saline -Foul Odor after Cleansing No -Anesthetic Used 4% Lidocaine Solution #6 L Post -Combined with other wound No -Current Size (cm) - Length 1.5 -Current Size (cm) - Width 1.5 -Current Size (cm) - Depth 0.4 -Total Square Cm 2.25 -Photo Taken No -Tunneling No -Undermining/Tunneling No -Circular Undermining No -Exudate Amt Small (1-33%) -Exudate Type Serosanguineous -Wound Margin Distinct, Outline Attached -Granulation Amt Medium (34-66%) -Granulation Quality [place] -Slough/Fibrin Yes -Necrosis Amt Small (1-33%) -Necrotic Tissue Type Adherent Slough -Structure Exposed N/A -Texture (Lisa-wound Skin Appearance) Assessed -Moisture (Lisa-wound Skin Appearance Assessed ) -Color (Lisa-wound Skin Appearance) Assessed -Temperature (Lisa-wound Skin No Abnormality Appearance) (Pt Warm) -Tenderness on Palpation (Lisa-wound No Skin Appearance) -Ulcer Cleansing Rinsed/ Irrigated with Saline -Foul Odor after Cleansing No -Anesthetic Used 4% Lidocaine Solution #5 R Lat LE -Combined with other wound No -Current Size (cm) - Length 1.8 -Current Size (cm) - Width 1.5 -Current Size (cm) - Depth 0.3 -Total Square Cm 2.70 -Photo Taken No -Tunneling No -Undermining/Tunneling No -Circular Undermining No -Exudate Amt Small (1-33%) -Exudate Type Serosanguineous -Wound Margin Distinct, Outline Attached -Granulation Amt Medium (34-66%) -Granulation Quality [place] -Slough/Fibrin Yes -Necrosis Amt Small (1-33%) -Necrotic Tissue Type Adherent Slough -Structure Exposed N/A -Texture (Lisa-wound Skin Appearance) Assessed -Moisture (Lisa-wound Skin Appearance Assessed ) -Color (Lisa-wound Skin Appearance) Assessed -Temperature (Lisa-wound Skin No Abnormality Appearance) (Pt Warm) -Tenderness on Palpation (Lisa-wound No Skin Appearance) -Ulcer Cleansing Rinsed/ Irrigated with Saline -Anesthetic Used 4% Lidocaine Solution #4 R post LE -Combined with other wound No -Current Size (cm) - Length 0.7 -Current Size (cm) - Width 1 -Current Size (cm) - Depth 0.1 -Total Square Cm 0.7 -Photo Taken No -Tunneling No -Undermining/Tunneling No -Circular Undermining No -Exudate Amt Small (1-33%) -Exudate Type Serosanguineous -Wound Margin Distinct, Outline Attached -Granulation Amt Medium (34-66%) -Granulation Quality [place] -Structure Exposed N/A -Texture (Lisa-wound Skin Appearance) Assessed -Moisture (Lisa-wound Skin Appearance Assessed ) -Color (Lisa-wound Skin Appearance) Assessed -Temperature (Lisa-wound Skin No Abnormality Appearance) (Pt Warm) -Tenderness on Palpation (Lisa-wound No Skin Appearance) -Ulcer Cleansing Rinsed/ Irrigated with Saline -Foul Odor after Cleansing No -Anesthetic Used 4% Lidocaine Solution #3 R Med LE -Combined with other wound No -Current Size (cm) - Length 2 -Current Size (cm) - Width 0.4 -Current Size (cm) - Depth 0.5 -Total Square Cm 0.8 -Photo Taken No -Tunneling No -Undermining/Tunneling No -Circular Undermining No -Exudate Amt Small (1-33%) -Exudate Type Serosanguineous -Wound Margin Distinct, Outline Attached -Granulation Amt Medium (34-66%) -Granulation Quality [place] -Slough/Fibrin Yes -Necrosis Amt Small (1-33%) -Necrotic Tissue Type Adherent Slough -Structure Exposed N/A -Texture (Lisa-wound Skin Appearance) Assessed -Moisture (Lisa-wound Skin Appearance Assessed ) -Color (Lisa-wound Skin Appearance) Assessed -Temperature (Lisa-wound Skin No Abnormality Appearance) (Pt Warm) -Tenderness on Palpation (Lisa-wound No Skin Appearance) -Ulcer Cleansing Rinsed/ Irrigated with Saline -Foul Odor after Cleansing No -Anesthetic Used 4% Lidocaine Solution #2 R [place] Cluster -Combined with other wound No -Current Size (cm) - Length 14.5 -Current Size (cm) - Width 2.9 -Current Size (cm) - Depth 0.2 -Total Square Cm 42.05 -Photo Taken No -Tunneling No -Undermining/Tunneling No -Circular Undermining No -Change in Wound Grade/Stage No Query Text:If change please identify the Stage/Grade in the comment (ie. S2 G3) -Exudate Amt Small (1-33%) -Exudate Type Serosanguineous -Wound Margin Distinct, Outline Attached -Granulation Amt Medium (34-66%) -Granulation Quality [place] -Slough/Fibrin Yes -Necrosis Amt Small (1-33%) -Necrotic Tissue Type Adherent Slough -Structure Exposed N/A -Texture (Lisa-wound Skin Appearance) Assessed -Moisture (Lisa-wound Skin Appearance Assessed ) -Color (Lisa-wound Skin Appearance) Assessed -Temperature (Lisa-wound Skin No Abnormality Appearance) (Pt Warm) -Tenderness on Palpation (Lisa-wound No Skin Appearance) -Ulcer Cleansing Rinsed/ Irrigated with Saline -Foul Odor after Cleansing No -Anesthetic Used 4% Lidocaine Solution #1 R 2nd toe amp/Arch/ Med Ankle -Combined with other wound No -Current Size (cm) - Length 1.5 -Current Size (cm) - Width 0.5 -Current Size (cm) - Depth 0.2 -Total Square Cm 0.75 -Photo Taken No -Tunneling No -Undermining/Tunneling No -Circular Undermining No -Exudate Amt Small (1-33%) -Exudate Type Serosanguineous -Wound Margin Distinct, Outline Attached -Granulation Amt Medium (34-66%) -Granulation Quality [place] -Slough/Fibrin Yes -Necrosis Amt Small (1-33%) -Necrotic Tissue Type Adherent Slough -Structure Exposed N/A -Texture (Lisa-wound Skin Appearance) Assessed -Moisture (Lisa-wound Skin Appearance Assessed ) -Color (Lisa-wound Skin Appearance) Assessed -Temperature (Lisa-wound Skin No Abnormality Appearance) (Pt Warm) -Tenderness on Palpation (Lisa-wound No Skin Appearance) -Ulcer Cleansing Rinsed/ Irrigated with Saline -Foul Odor after Cleansing No -Anesthetic Used 4% Lidocaine Solution [Edema Assessment] -Lower Limb Edema Present Yes -Right Calf (cm) 35 -Right Ankle (cm) 22 -Left Calf (cm) 32.8 -Left Ankle (cm) 21 WC - Nurse 2 - General Ulcer CM Notes Start: 10/26/18 08:06 Freq: Status: Active Protocol: Activity Type Activity Date Activity User E-Sign Co-Sign Detail Recorded Client Recorded Date Recorded By Document 11/16/18 09:00 JF [id number] 11/16/18 09:05 JF 11/16/18 09:00 Wound Center Nurse 2 [Procedure/Treatment] #11 RIGHT MEDIAL FOOT -Time 09:00 -Correct Patient Yes -Correct Side, Site, Position Yes -Correct Procedure Yes -Procedure Performed Yes -Type of Procedure Debridement -Clinical Debridement Subcutaneous -Post Debridement Size (cm) - Length 1.6 -Post Debridement Size (cm) - Width 0.5 -Post Debridement Size (cm) - Depth 0.2 -Total Square Cm 0.80 -Wound/Ulcer Outcome Not Healed -Ulcer Cleansing Rinsed/ Irrigated with Saline -Foul Odor after Cleansing No -Bioengineered Tissue No -Bleeding Controlled with Pressure -Offloading No -Treatment Response Procedure Tolerated Well #10 right heel -Time 09:01 -Correct Patient No -Correct Side, Site, Position No -Correct Procedure No -Procedure Performed No -Post Debridement Size (cm) - Length 0 -Post Debridement Size (cm) - Width 0 -Post Debridement Size (cm) - Depth 0 -Total Square Cm 0 -Wound/Ulcer Outcome Healed- Epithelialized -Ulcer Cleansing Rinsed/ Irrigated with Saline -Treatment Response Procedure Tolerated Well #8 r Knee -Correct Patient No -Correct Side, Site, Position No -Correct Procedure No -Procedure Performed No #6 L Post -Time 09:01 -Correct Patient Yes -Correct Side, Site, Position Yes -Correct Procedure Yes -Procedure Performed Yes -Type of Procedure Debridement -Clinical Debridement Subcutaneous -Post Debridement Size (cm) - Length 1.5 -Post Debridement Size (cm) - Width 1.6 -Post Debridement Size (cm) - Depth 0.4 -Total Square Cm 2.40 -Wound/Ulcer Outcome Not Healed -Ulcer Cleansing Rinsed/ Irrigated with Saline -Foul Odor after Cleansing No -Bioengineered Tissue No -Bleeding Controlled with Pressure -Offloading No -Treatment Response Procedure Tolerated Well #5 R Lat LE -Time 09:02 -Correct Patient Yes -Correct Side, Site, Position Yes -Correct Procedure Yes -Procedure Performed Yes -Type of Procedure Debridement -Clinical Debridement Subcutaneous -Post Debridement Size (cm) - Length 1.8 -Post Debridement Size (cm) - Width 1.6 -Post Debridement Size (cm) - Depth 0.3 -Total Square Cm 2.88 -Wound/Ulcer Outcome Not Healed -Ulcer Cleansing Rinsed/ Irrigated with Saline -Bioengineered Tissue No -Bleeding Controlled with Pressure -Offloading No -Treatment Response Procedure Tolerated Well #4 R post LE -Time 09:03 -Correct Patient Yes -Correct Side, Site, Position Yes -Correct Procedure Yes -Procedure Performed Yes -Type of Procedure Debridement -Clinical Debridement Subcutaneous -Post Debridement Size (cm) - Length 0.8 -Post Debridement Size (cm) - Width 1 -Post Debridement Size (cm) - Depth 0.1 -Total Square Cm 0.8 -Wound/Ulcer Outcome Not Healed -Ulcer Cleansing Rinsed/ Irrigated with Saline -Foul Odor after Cleansing No -Bioengineered Tissue No -Bleeding Controlled with Pressure -Offloading No -Treatment Response Procedure Tolerated Well #3 R Med LE -Time 09:04 -Correct Patient Yes -Correct Side, Site, Position Yes -Correct Procedure Yes -Procedure Performed Yes -Type of Procedure Debridement -Clinical Debridement Subcutaneous -Post Debridement Size (cm) - Length 2 -Post Debridement Size (cm) - Width 0.5 -Post Debridement Size (cm) - Depth 0.5 -Total Square Cm 1.0 -Wound/Ulcer Outcome Not Healed -Ulcer Cleansing Rinsed/ Irrigated with Saline -Foul Odor after Cleansing No -Bioengineered Tissue No -Bleeding Controlled with Pressure -Offloading No -Treatment Response Procedure Tolerated Well #2 R [place] Cluster -Time 09:04 -Correct Patient Yes -Correct Side, Site, Position Yes -Correct Procedure Yes -Procedure Performed Yes -Type of Procedure Debridement -Clinical Debridement Subcutaneous -Post Debridement Size (cm) - Length 14.5 -Post Debridement Size (cm) - Width 3 -Post Debridement Size (cm) - Depth 0.2 -Total Square Cm 43.5 -Wound/Ulcer Outcome Not Healed -Ulcer Cleansing Rinsed/ Irrigated with Saline -Foul Odor after Cleansing No -Bioengineered Tissue No -Bleeding Controlled with Pressure -Offloading No -Treatment Response Procedure Tolerated Well #1 R 2nd toe amp/Arch/ Med Ankle -Time 09:04 -Correct Patient Yes -Correct Side, Site, Position Yes -Correct Procedure Yes -Procedure Performed Yes -Type of Procedure Debridement -Clinical Debridement Subcutaneous -Post Debridement Size (cm) - Length 1.5 -Post Debridement Size (cm) - Width 0.6 -Post Debridement Size (cm) - Depth 0.2 -Total Square Cm 0.90 -Wound/Ulcer Outcome Not Healed -Ulcer Cleansing Rinsed/ Irrigated with Saline -Foul Odor after Cleansing No -Bioengineered Tissue No -Bleeding Controlled with Pressure -Offloading No -Treatment Response Procedure Tolerated Well [See Physician Procedure note for Specifics] Pain Scale: 0-10 Numeric [Pain] -Is Patient Pain Free? Yes Neurological: Cranial nerves II-XII grossly intact Psych/Mental Status: Normal Affect Debridement Note Post-Debridement Measurements/Treatment WC - Nurse 2 - General Ulcer CM Notes Start: 10/26/18 08:06 Freq: Status: Active Protocol: Activity Type Activity Date Activity User E-Sign Co-Sign Detail Recorded Client Recorded Date Recorded By Document 10/26/18 09:03 TM [id number] 10/26/18 09:10 TM Document 11/02/18 08:44 JF [id number] 11/02/18 08:51 JF Document 11/02/18 09:34 MW [id number] 11/02/18 09:35 MW Document 11/09/18 09:03 JF [id number] 11/09/18 09:11 JF Document 11/09/18 09:19 MW [id number] 11/09/18 09:20 MW Document 11/16/18 09:00 JF [id number] 11/16/18 09:05 JF 10/26/18 11/02/18 11/02/18 09:03 08:44 09:34 Wound Center Nurse 2 #11 RIGHT MEDIAL FOOT -Time 08:44 -Correct Patient Yes -Correct Side, Site, Position Yes -Correct Procedure Yes -Procedure Performed Yes -Type of Procedure Debridement -Clinical Debridement Subcutaneous -Post Debridement Size (cm) - Length 12.1 -Post Debridement Size (cm) - Width 2 -Post Debridement Size (cm) - Depth 0.2 -Total Square Cm 24.2 -Wound/Ulcer Outcome Not Healed -Ulcer Cleansing Rinsed/ Irrigated with Saline -Foul Odor after Cleansing No -Bioengineered Tissue No -Bleeding Controlled with Pressure -Offloading No -Treatment Response Procedure Tolerated Well #10 right heel -Time 09:05 08:45 -Correct Patient Yes Yes -Correct Side, Site, Position Yes Yes -Correct Procedure Yes Yes -Procedure Performed Yes Yes -Type of Procedure Debridement Debridement -Clinical Debridement Subcutaneous Subcutaneous -Post Debridement Size (cm) - Length 0.9 0.6 -Post Debridement Size (cm) - Width 0.4 1 -Post Debridement Size (cm) - Depth 0.1 0.2 -Total Square Cm 0.36 0.6 -Wound/Ulcer Outcome Not Healed Not Healed -Ulcer Cleansing Rinsed/ Rinsed/ Irrigated with Irrigated with Saline Saline -Foul Odor after Cleansing No No -Bioengineered Tissue No No -Topical Lidocaine (%) 4 -Bleeding Controlled with Pressure Pressure -Offloading Yes No -Type of Offloading Camwalker -Treatment Response Procedure Procedure Tolerated Well Tolerated Well 9.L knee -Time 09:34 -Correct Patient Yes -Correct Side, Site, Position Yes -Correct Procedure Yes -Procedure Performed No -Post Debridement Size (cm) - Length 0.1 -Post Debridement Size (cm) - Width 0.1 -Post Debridement Size (cm) - Depth 0.1 -Total Square Cm 0.01 -Wound/Ulcer Outcome Not Healed -Ulcer Cleansing Rinsed/ Irrigated with Saline -Foul Odor after Cleansing No -Bioengineered Tissue No -Bleeding Controlled with NA -Offloading No -Treatment Response Procedure Tolerated Well #8 r Knee -Time 09:34 -Correct Patient Yes -Correct Side, Site, Position Yes -Correct Procedure Yes -Procedure Performed Yes -Type of Procedure Debridement -Clinical Debridement Subcutaneous -Post Debridement Size (cm) - Length 1.2 -Post Debridement Size (cm) - Width 1.5 -Post Debridement Size (cm) - Depth 0.3 -Total Square Cm 1.80 -Wound/Ulcer Outcome Not Healed -Ulcer Cleansing Rinsed/ Irrigated with Saline -Foul Odor after Cleansing No -Bioengineered Tissue No -Bleeding Controlled with Pressure -Offloading No -Type of Offloading -Treatment Response Procedure Tolerated Well #6 L Post -Time 09:06 08:46 -Correct Patient Yes Yes -Correct Side, Site, Position Yes Yes -Correct Procedure Yes Yes -Procedure Performed Yes Yes -Type of Procedure Debridement Debridement -Clinical Debridement Subcutaneous Subcutaneous -Post Debridement Size (cm) - Length 21.1 21 -Post Debridement Size (cm) - Width 1.7 1.9 -Post Debridement Size (cm) - Depth 0.1 0.3 -Total Square Cm 35.87 39.9 -Wound/Ulcer Outcome Not Healed Not Healed -Ulcer Cleansing Rinsed/ Rinsed/ Irrigated with Irrigated with Saline Saline -Foul Odor after Cleansing No No -Bioengineered Tissue No No -Topical Lidocaine (%) 4 -Bleeding Controlled with Pressure Pressure -Offloading Yes No -Treatment Response Procedure Procedure Tolerated Well Tolerated Well #5 R Lat LE -Time : 08:46 -Correct Patient Yes Yes -Correct Side, Site, Position Yes Yes -Correct Procedure Yes Yes -Procedure Performed Yes Yes -Type of Procedure Debridement Debridement -Clinical Debridement Subcutaneous Subcutaneous -Post Debridement Size (cm) - Length 1.9 1.5 -Post Debridement Size (cm) - Width 1.6 1.4 -Post Debridement Size (cm) - Depth 0.2 0.3 -Total Square Cm 3.04 2.10 -Wound/Ulcer Outcome Not Healed Not Healed -Ulcer Cleansing Rinsed/ Rinsed/ Irrigated with Irrigated with Saline Saline -Foul Odor after Cleansing No No -Bioengineered Tissue No No -Topical Lidocaine (%) 4 -Bleeding Controlled with Pressure Pressure -Offloading Yes No -Type of Offloading Camwalker -Treatment Response Procedure Procedure Tolerated Well Tolerated Well #4 R post LE -Time 09: 08:46 -Correct Patient Yes Yes -Correct Side, Site, Position Yes Yes -Correct Procedure Yes Yes -Procedure Performed Yes Yes -Type of Procedure Debridement Debridement -Clinical Debridement Subcutaneous Subcutaneous -Post Debridement Size (cm) - Length 0.9 0.8 -Post Debridement Size (cm) - Width 0.6 0.6 -Post Debridement Size (cm) - Depth 0.2 0.2 -Total Square Cm 0.54 0.48 -Wound/Ulcer Outcome Not Healed Not Healed -Ulcer Cleansing Rinsed/ Rinsed/ Irrigated with Irrigated with Saline Saline -Foul Odor after Cleansing No No -Bioengineered Tissue No No -Topical Lidocaine (%) 4 -Bleeding Controlled with Pressure Pressure -Offloading No -Type of Offloading Camwalker -Treatment Response Procedure Procedure Tolerated Well Tolerated Well #3 R Med LE -Time 09: 08:47 -Correct Patient Yes Yes -Correct Side, Site, Position Yes Yes -Correct Procedure Yes Yes -Procedure Performed Yes Yes -Type of Procedure Debridement Debridement -Clinical Debridement Subcutaneous Subcutaneous -Post Debridement Size (cm) - Length 2.6 1.8 -Post Debridement Size (cm) - Width 0.7 0.5 -Post Debridement Size (cm) - Depth 0.6 0.4 -Total Square Cm 1.82 0.90 -Wound/Ulcer Outcome Not Healed Not Healed -Ulcer Cleansing Rinsed/ Rinsed/ Irrigated with Irrigated with Saline Saline -Foul Odor after Cleansing No No -Bioengineered Tissue No No -Topical Lidocaine (%) 4 -Bleeding Controlled with Pressure Pressure -Offloading Yes No -Type of Offloading Camwalker -Treatment Response Procedure Procedure Tolerated Well Tolerated Well #2 R [place] Cluster -Time 09: 08:47 -Correct Patient Yes Yes -Correct Side, Site, Position Yes Yes -Correct Procedure Yes Yes -Procedure Performed Yes Yes -Type of Procedure Debridement Debridement -Clinical Debridement Subcutaneous Subcutaneous -Post Debridement Size (cm) - Length 11.6 10.8 -Post Debridement Size (cm) - Width 3.1 3.1 -Post Debridement Size (cm) - Depth 0.1 0.1 -Total Square Cm 35.96 33.48 -Wound/Ulcer Outcome Not Healed Not Healed -Ulcer Cleansing Rinsed/ Rinsed/ Irrigated with Irrigated with Saline Saline -Foul Odor after Cleansing No No -Bioengineered Tissue No No -Topical Lidocaine (%) 4 -Bleeding Controlled with Pressure Pressure -Offloading Yes No -Type of Offloading Camwalker -Treatment Response Procedure Procedure Tolerated Well Tolerated Well #1 R 2nd toe amp/Arch/ Med Ankle -Time 09: 08:47 -Correct Patient Yes Yes -Correct Side, Site, Position Yes Yes -Correct Procedure Yes Yes -Procedure Performed Yes Yes -Type of Procedure Debridement Debridement -Clinical Debridement Subcutaneous Subcutaneous -Post Debridement Size (cm) - Length 25.3 3 -Post Debridement Size (cm) - Width 2.4 0.4 -Post Debridement Size (cm) - Depth 1.1 0.7 -Total Square Cm 60.72 1.2 -Wound/Ulcer Outcome Not Healed Not Healed -Ulcer Cleansing Rinsed/ Rinsed/ Irrigated with Irrigated with Saline Saline -Foul Odor after Cleansing No No -Bioengineered Tissue No No -Topical Lidocaine (%) 4 -Bleeding Controlled with Pressure Pressure -Offloading Yes No -Type of Offloading Camwalker -Treatment Response Procedure Procedure Tolerated Well Tolerated Well Pain Scale: 0-10 Numeric Is Patient Pain Free? Yes Yes 11/09/18 11/09/18 11/16/18 09:03 09:19 09:00 Wound Center Nurse 2 #11 RIGHT MEDIAL FOOT -Time 09:06 09:00 -Correct Patient Yes Yes -Correct Side, Site, Position Yes Yes -Correct Procedure Yes Yes -Procedure Performed Yes Yes -Type of Procedure Debridement Debridement -Clinical Debridement Subcutaneous Subcutaneous -Post Debridement Size (cm) - Length 12.5 1.6 -Post Debridement Size (cm) - Width 2.1 0.5 -Post Debridement Size (cm) - Depth 0.5 0.2 -Total Square Cm 26.25 0.80 -Wound/Ulcer Outcome Not Healed Not Healed -Ulcer Cleansing Rinsed/ Rinsed/ Irrigated with Irrigated with Saline Saline -Foul Odor after Cleansing No No -Bioengineered Tissue No No -Bleeding Controlled with Pressure Pressure -Offloading No No -Treatment Response Procedure Procedure Tolerated Well Tolerated Well #10 right heel -Time 09:06 09:01 -Correct Patient Yes No -Correct Side, Site, Position Yes No -Correct Procedure Yes No -Procedure Performed Yes No -Type of Procedure Debridement -Clinical Debridement Subcutaneous -Post Debridement Size (cm) - Length 0.2 0 -Post Debridement Size (cm) - Width 0.2 0 -Post Debridement Size (cm) - Depth 0.1 0 -Total Square Cm 0.04 0 -Wound/Ulcer Outcome Not Healed Healed- Epithelialized -Ulcer Cleansing Rinsed/ Rinsed/ Irrigated with Irrigated with Saline Saline -Foul Odor after Cleansing No -Bioengineered Tissue No -Topical Lidocaine (%) -Bleeding Controlled with Pressure -Offloading No -Type of Offloading -Treatment Response Procedure Procedure Tolerated Well Tolerated Well 9.L knee -Time 09:19 -Correct Patient Yes -Correct Side, Site, Position Yes -Correct Procedure Yes -Procedure Performed No -Post Debridement Size (cm) - Length -Post Debridement Size (cm) - Width -Post Debridement Size (cm) - Depth -Total Square Cm -Wound/Ulcer Outcome Healed- Epithelialized -Ulcer Cleansing -Foul Odor after Cleansing -Bioengineered Tissue -Bleeding Controlled with -Offloading -Treatment Response #8 r Knee -Time 09:19 -Correct Patient Yes No -Correct Side, Site, Position Yes No -Correct Procedure Yes No -Procedure Performed Yes No -Type of Procedure Debridement -Clinical Debridement Subcutaneous -Post Debridement Size (cm) - Length 0.8 -Post Debridement Size (cm) - Width 1.0 -Post Debridement Size (cm) - Depth 0.2 -Total Square Cm 0.80 -Wound/Ulcer Outcome Not Healed -Ulcer Cleansing Rinsed/ Irrigated with Saline -Foul Odor after Cleansing No -Bioengineered Tissue No -Bleeding Controlled with Pressure -Offloading -Type of Offloading Total Contact Cast (TCC) -Treatment Response Procedure Tolerated Well #6 L Post -Time 09:07 09:01 -Correct Patient Yes Yes -Correct Side, Site, Position Yes Yes -Correct Procedure Yes Yes -Procedure Performed Yes Yes -Type of Procedure Debridement Debridement -Clinical Debridement Subcutaneous Subcutaneous -Post Debridement Size (cm) - Length 21.1 1.5 -Post Debridement Size (cm) - Width 2 1.6 -Post Debridement Size (cm) - Depth 0.5 0.4 -Total Square Cm 42.2 2.40 -Wound/Ulcer Outcome Not Healed Not Healed -Ulcer Cleansing Rinsed/ Rinsed/ Irrigated with Irrigated with Saline Saline -Foul Odor after Cleansing No No -Bioengineered Tissue No No -Topical Lidocaine (%) -Bleeding Controlled with Pressure Pressure -Offloading No No -Treatment Response Procedure Procedure Tolerated Well Tolerated Well #5 R Lat LE -Time 09:07 09:02 -Correct Patient Yes Yes -Correct Side, Site, Position Yes Yes -Correct Procedure Yes Yes -Procedure Performed Yes Yes -Type of Procedure Debridement Debridement -Clinical Debridement Subcutaneous Subcutaneous -Post Debridement Size (cm) - Length 1.8 1.8 -Post Debridement Size (cm) - Width 1.3 1.6 -Post Debridement Size (cm) - Depth 0.2 0.3 -Total Square Cm 2.34 2.88 -Wound/Ulcer Outcome Not Healed Not Healed -Ulcer Cleansing Rinsed/ Rinsed/ Irrigated with Irrigated with Saline Saline -Foul Odor after Cleansing No -Bioengineered Tissue No No -Topical Lidocaine (%) -Bleeding Controlled with Pressure Pressure -Offloading No No -Type of Offloading -Treatment Response Procedure Procedure Tolerated Well Tolerated Well #4 R post LE -Time 09:07 09:03 -Correct Patient Yes Yes -Correct Side, Site, Position Yes Yes -Correct Procedure Yes Yes -Procedure Performed Yes Yes -Type of Procedure Debridement Debridement -Clinical Debridement Subcutaneous Subcutaneous -Post Debridement Size (cm) - Length 0.6 0.8 -Post Debridement Size (cm) - Width 0.6 1 -Post Debridement Size (cm) - Depth 0.2 0.1 -Total Square Cm 0.36 0.8 -Wound/Ulcer Outcome Not Healed Not Healed -Ulcer Cleansing Rinsed/ Rinsed/ Irrigated with Irrigated with Saline Saline -Foul Odor after Cleansing No No -Bioengineered Tissue No No -Topical Lidocaine (%) -Bleeding Controlled with Pressure Pressure -Offloading No No -Type of Offloading -Treatment Response Procedure Procedure Tolerated Well Tolerated Well #3 R Med LE -Time 09: 09:04 -Correct Patient Yes Yes -Correct Side, Site, Position Yes Yes -Correct Procedure Yes Yes -Procedure Performed Yes Yes -Type of Procedure Debridement Debridement -Clinical Debridement Subcutaneous Subcutaneous -Post Debridement Size (cm) - Length 1.8 2 -Post Debridement Size (cm) - Width 0.5 0.5 -Post Debridement Size (cm) - Depth 0.6 0.5 -Total Square Cm 0.90 1.0 -Wound/Ulcer Outcome Not Healed Not Healed -Ulcer Cleansing Rinsed/ Rinsed/ Irrigated with Irrigated with Saline Saline -Foul Odor after Cleansing No No -Bioengineered Tissue No No -Topical Lidocaine (%) -Bleeding Controlled with Pressure Pressure -Offloading No No -Type of Offloading -Treatment Response Procedure Procedure Tolerated Well Tolerated Well #2 R [place] Cluster -Time 09:08 09:04 -Correct Patient Yes Yes -Correct Side, Site, Position Yes Yes -Correct Procedure Yes Yes -Procedure Performed Yes Yes -Type of Procedure Debridement Debridement -Clinical Debridement Subcutaneous Subcutaneous -Post Debridement Size (cm) - Length 10.5 14.5 -Post Debridement Size (cm) - Width 2.3 3 -Post Debridement Size (cm) - Depth 0.2 0.2 -Total Square Cm 24.15 43.5 -Wound/Ulcer Outcome Not Healed Not Healed -Ulcer Cleansing Rinsed/ Rinsed/ Irrigated with Irrigated with Saline Saline -Foul Odor after Cleansing No No -Bioengineered Tissue No No -Topical Lidocaine (%) -Bleeding Controlled with Pressure Pressure -Offloading No No -Type of Offloading -Treatment Response Procedure Procedure Tolerated Well Tolerated Well #1 R 2nd toe amp/Arch/ Med Ankle -Time 09:09 09:04 -Correct Patient Yes Yes -Correct Side, Site, Position Yes Yes -Correct Procedure Yes Yes -Procedure Performed Yes Yes -Type of Procedure Debridement Debridement -Clinical Debridement Subcutaneous Subcutaneous -Post Debridement Size (cm) - Length 2.5 1.5 -Post Debridement Size (cm) - Width 0.5 0.6 -Post Debridement Size (cm) - Depth 0.5 0.2 -Total Square Cm 1.25 0.90 -Wound/Ulcer Outcome Not Healed Not Healed -Ulcer Cleansing Rinsed/ Rinsed/ Irrigated with Irrigated with Saline Saline -Foul Odor after Cleansing No No -Bioengineered Tissue No No -Topical Lidocaine (%) -Bleeding Controlled with Pressure Pressure -Offloading No No -Type of Offloading -Treatment Response Procedure Procedure Tolerated Well Tolerated Well Pain Scale: 0-10 Numeric Is Patient Pain Free? Yes Yes Yes Wound debrided: Right knee Wound Grade/Stage: Stage III Type of Debridement: Excisional debridement Anesthesia Used: 4% Lidocaine Solution Depth: Down to and including healthy tissue, in the subcutaneous layer Percentage of wound debrided: 100 Instrument Used: 7mm curette Tissue Removed: Slough and devitalized tissue Severity: Fat Layer Exposed Amount of bleeding with debridement: Mild Bleeding Controlled with: Pressure Patient tolerated procedure well Assessment/Plan Active Problems (Last Updated 09/28/18 @ 12:41 by Geraldine Steele) Ulcer of right foot with fat layer exposed (Chronic) 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) Skin ulcer of right knee with fat layer exposed (Chronic) Skin ulcer of left knee with fat layer exposed (Chronic) Delayed wound healing (Chronic) 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) Tobacco dependence due to cigarettes (Chronic) Ulcer of right lower extremity with fat layer exposed (Chronic) Ulcer of left lower extremity with fat layer exposed (Chronic) 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) Type 2 diabetes mellitus with diabetic polyneuropathy (Chronic) Localized edema (Chronic) Assessment: Open second and third ray resection secondary to 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 Diabetic neuropathy. Malnutrition suspected. 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 Delayed healing. Gait impairment and fall risk. Other comorbidities, right knee ulcer, tendon exposed (Dr. Gilbert managed), left knee ulcer (Dr. Gilbert managed) Plan: Stable right knee. No complaints at this time. Debridement done as documented above. Procedure was well-tolerated. Continue Promogran with Adaptic over top. Change every third day. All the wound care management per Dr. Gruber. Advised to call with any questions or concerns. Next visit for right knee in 1 week and follow-up with me in 2 weeks. This note was generated with [employer] dictation software. It may contain incorrect words, spelling, and punctuation that were not noted in checking the note before signing.
== END 2018-11-21 23:59 ==
LOC: WC 08:00
PROVIDERS: Family Provider Family Medicine; PCP Family Medicine; Visit Provider Podiatrist
DX: E11.621 Type 2 diabetes mellitus with foot ulcer (principal); E11.51 Type 2 diabetes mellitus with diabetic peripheral angiopathy without gangrene; E11.42 Type 2 diabetes mellitus with diabetic polyneuropathy; L97.512 Non-pressure chronic ulcer of other part of right foot with fat layer exposed; E11.622 Type 2 diabetes mellitus with other skin ulcer; L97.822 Non-pressure chronic ulcer of other part of left lower leg with fat layer exposed; L97.812 Non-pressure chronic ulcer of other part of right lower leg with fat layer exposed; L97.412 Non-pressure chronic ulcer of right heel and midfoot with fat layer exposed; F17.200 Nicotine dependence, unspecified, uncomplicated; R60.0 Localized edema
CPT/HCPCS: 11042; 11045; 97606; 99214; G0463

== ENCOUNTER 2018-12-14 08:00 | Outpatient (RCR) | payer OTHER, SELFPAY ==
[2018-11-22 00:51] VITALS: BP 144/84; PULSE 101; RESP 18; TEMP 36
[2018-11-23 08:15] VITALS: BP 140/94; PULSE 99; RESP 18; TEMP 35.9
--- NOTE | 2018-11-23 09:45 | PN.PCM_ITS ---
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 Current Visit: Yes Code(s): L97.923 - Non-pressure chronic ulcer of unspecified part of left lower leg with necrosis of muscle (3) Ulcer of left lower extremity with fat layer exposed Status: Chronic Current Visit: Yes Code(s): L97.922 - Non-pressure chronic ulcer of unspecified part of left lower leg with fat layer exposed (4) Ulcer of right lower extremity with fat layer exposed Status: Chronic Current Visit: Yes Code(s): L97.912 - Non-pressure chronic ulcer of unspecified part of right lower leg with fat layer exposed (5) Delayed wound healing Status: Chronic Current Visit: Yes Code(s): T14.8XXD - Other injury of unspecified body region, subsequent encounter (6) Malnutrition Status: Chronic Current Visit: Yes Code(s): E46 - Unspecified protein-calor ie malnutrition (7) Tobacco dependence due to cigarettes Status: Chronic Current Visit: Yes Code(s): F17.210 - Nicotine dependence, cigarettes, uncomplicated (8) Type 2 diabetes mellitus with diabetic polyneuropathy Status: Chronic Current Visit: Yes Code(s): E11.42 - Type 2 diabetes mellitus with diabetic polyneuropathy (9) Vasculitis Status: Chronic Current Visit: Yes Code(s): I77.6 - Arteritis, unspecified Type of Wound Chief Complaint: right and left Leg ulcers and right foot ulcer. New left foot ulcer History of Wound: Mr. Arguello is a 63-year-old male with multiple comorbidities follows up for delayed healing ulcers to the right foot as well as bilateral legs. It is noted he previously had widespread debridements and fasciotomies performed to bilateral lower extremities secondary to life-threatening and limb threatening infection; this was previously performed at [facility]. He continues to follow with Dr. Gilbert for her knee ulcers, and I saw him today for his other ulcer site of the right knee. He denies chills, fever or otherwise feeling of unwell. He presents today with his . He still refuses advanced wound care product application. He refuses hyperbaric oxygen therapy treatment. He is inquiring about insurance coverage and will bring the paperwork next week. He previously refused surgical intervention. He sent his wound VAC back as advised because he is completed this treatment c ourse. He denies any known injury, redness or odor. His is applied Santyl to any necrotic tissue was advised. Progress of Wound: Improving right knee. - Physical Exam Vital Signs Temp Pulse Resp BP 96.6 F L 99 18 140/94 H 11/23/18 08:15 11/23/18 08:15 11/23/18 08:15 11/23/18 08:15 General: Alert, Oriented x3, Cooperative Extremities: No cyanosis, Capillary Refill Less than 3 Seconds, No Calf Tenderness - Negative Errol and [place] bilateral, Diminished Peripheral Pulses, Edema Skin: Ulcer/ Wound - No purulence, erythema, streaking, odor, or infection or maceration. Peripheral skin is hairless and atrophic. There is some devital ized tendon to the proximal posterior left leg ulcer site upon debridement there is no deep tissue loss. There is resolved necrotic tissue to the right anterior leg ulcer site. There is continued fibrous tissue to the medial right leg ulcer site and also to the right plantar foot ulcer site Wound Measurements and Assessment WC - Nurse 1 - General Ulcer Measurement Start: 11/23/18 08:14 Freq: Status: Active Protocol: Activity Type Activity Date Activity User E-Sign Co-Sign Detail Recorded Client Recorded Date Recorded By Document 11/23/18 08:15 DV [id number] 11/23/18 08:58 DV 11/23/18 08:15 Wound Center Nurse 1 [Ulcer Assessment] #11 RIGHT MEDIAL FOOT -Combined with other wound No -Current Size (cm) - Length 13.0 -Current Size (cm) - Width 2.4 -Current Size (cm) - Depth 0.5 -Total Square Cm 31.20 -Date of Last Picture (Recall this 11/16/18 field) -Photo Taken No -Epithelialization None Present -Tunneling No -Undermining/Tunneling No -Circular Undermining No -Classification - Thickness Full Thickness with Exposed Support Structure -Exudate Amt Medium (34-66%) -Exudate Type Serosanguineous -Wound Margin Distinct, Outline Attached -Granulation Amt None Present (0 %) -Granulation Quality N/A -Slough/Fibrin Yes -Necrosis Amt Small (1-33%) -Necrotic Tissue Type Adherent Slough -Structure Exposed N/A -Texture (Lisa-wound Skin Appearance) Callus -Moisture (Lisa-wound Skin Appearance No Abnormality ) -Color (Lisa-wound Skin Appearance) No Abnormality -Temperature (Lisa-wound Skin No Abnormality Appearance) (Pt Warm) -Tenderness on Palpation (Lisa-wound No Skin Appearance) -Ulcer Cleansing soap & Water -Foul Odor after Cleansing Yes -Anesthetic Used 5% Lidocaine Gel #10 right heel -Combined with other wound No -Current Size (cm) - Length 0 -Current Size (cm) - Width 0 -Current Size (cm) - Depth 0 -Total Square Cm 0 -Date of Last Picture (Recall this 10/12/18 field) -Photo Taken No -Epithelialization Large 67-100% -Tunneling No -Undermining/Tunneling No -Circular Undermining No #8 r Knee -Combined with other wound No -Current Size (cm) - Length 1.1 -Current Size (cm) - Width 1.0 -Current Size (cm) - Depth 0.4 -Total Square Cm 1.10 -Date of Last Picture (Recall this 11/16/18 field) -Photo Taken No -Epithelialization None Present -Tunneling No -Undermining/Tunneling Yes -Undermining/Tunneling Starts (O' 9 clock) -Undermining/Tunneling Ends (O'clock) 3 -Maximum Distance (cm) 0.5 -Circular Undermining No -Classification - Thickness Full Thickness with Exposed Support Structure -Exudate Amt Small (1-33%) -Exudate Type Yellow/Green -Wound Margin Distinct, Outline Attached -Granulation Amt None Present (0 %) -Granulation Quality N/A -Slough/Fibrin Yes -Necrosis Amt None Present (0 %) -Necrotic Tissue Type Adherent Slough -Structure Exposed N/A -Texture (Lisa-wound Skin Appearance) No Abnormality -Moisture (Lisa-wound Skin Appearance Maceration ) -Color (Lisa-wound Skin Appearance) Erythema -Temperature (Lisa-wound Skin No Abnormality Appearance) (Pt Warm) -Tenderness on Palpation (Lisa-wound No Skin Appearance) -Ulcer Cleansing Soap & Water -Foul Odor after Cleansing No -Anesthetic Used 5% Lidocaine Gel #6 L Post -Combined with other wound No -Current Size (cm) - Length 2.1 -Current Size (cm) - Width 2.0 -Current Size (cm) - Depth 0.5 -Total Square Cm 4.20 -Date of Last Picture (Recall this 11/16/18 field) -Photo Taken No -Epithelialization None Present -Tunneling No -Undermining/Tunneling No -Circular Undermining No -Classification - Thickness Full Thickness without Exposed Support Structure -Exudate Amt Medium (34-66%) -Exudate Type Yellow/Green -Wound Margin Distinct, Outline Attached -Granulation Amt None Present (0 %) -Granulation Quality N/A -Slough/Fibrin Yes -Necrosis Amt None Present (0 %) -Necrotic Tissue Type Adherent Slough -Structure Exposed N/A -Texture (Lisa-wound Skin Appearance) No Abnormality -Moisture (Lisa-wound Skin Appearance No Abnormality ) -Color (Lisa-wound Skin Appearance) No Abnormality -Temperature (Lisa-wound Skin No Abnormality Appearance) (Pt Warm) -Tenderness on Palpation (Lisa-wound No Skin Appearance) -Ulcer Cleansing Soap & Water -Foul Odor after Cleansing No -Anesthetic Used 5% Lidocaine Gel #5 R Lat LE -Combined with other wound No -Current Size (cm) - Length 2.0 -Current Size (cm) - Width 1.5 -Current Size (cm) - Depth 0.2 -Total Square Cm 3.00 -Date of Last Picture (Recall this 11/16/18 field) -Photo Taken No -Epithelialization None Present -Tunneling No -Undermining/Tunneling No -Circular Undermining No -Classification - Thickness Full Thickness without Exposed Support Structure -Classification - Allen Grading ( Grade 1 Diabetic Ulcer) -Exudate Amt Medium (34-66%) -Granulation Amt None Present (0 %) -Granulation Quality N/A -Slough/Fibrin Yes -Necrosis Amt None Present (0 %) -Necrotic Tissue Type Adherent Slough -Structure Exposed N/A -Texture (Lisa-wound Skin Appearance) No Abnormality -Moisture (Lisa-wound Skin Appearance No Abnormality ) -Color (Lisa-wound Skin Appearance) No Abnormality -Temperature (Lisa-wound Skin No Abnormality Appearance) (Pt Warm) -Tenderness on Palpation (Lisa-wound No Skin Appearance) -Ulcer Cleansing Soap & Water #4 R post LE -Combined with other wound No -Current Size (cm) - Length 1.3 -Current Size (cm) - Width 1.3 -Current Size (cm) - Depth 0.1 -Total Square Cm 1.69 -Date of Last Picture (Recall this 11/16/18 field) -Photo Taken No -Epithelialization None Present -Tunneling No -Undermining/Tunneling No -Circular Undermining No -Classification - Thickness Full Thickness without Exposed Support Structure -Classification - Allen Grading ( Grade 2 Diabetic Ulcer) -Exudate Amt Medium (34-66%) -Exudate Type Serosanguineous -Wound Margin Distinct, Outline Attached -Granulation Amt None Present (0 %) -Granulation Quality N/A -Slough/Fibrin Yes -Necrosis Amt None Present (0 %) -Necrotic Tissue Type Adherent Slough -Structure Exposed N/A -Texture (Lisa-wound Skin Appearance) No Abnormality -Moisture (Lisa-wound Skin Appearance No Abnormality ) -Color (Lisa-wound Skin Appearance) No Abnormality -Temperature (Lisa-wound Skin No Abnormality Appearance) (Pt Warm) -Tenderness on Palpation (Lisa-wound No Skin Appearance) -Ulcer Cleansing Soap & Water -Foul Odor after Cleansing No -Anesthetic Used 5% Lidocaine Gel #3 R Med LE -Combined with other wound No -Current Size (cm) - Length 2.5 -Current Size (cm) - Width 0.5 -Current Size (cm) - Depth 0.3 -Total Square Cm 1.25 -Date of Last Picture (Recall this 11/16/18 field) -Photo Taken No -Epithelialization None Present -Tunneling No -Undermining/Tunneling No -Circular Undermining No -Classification - Thickness Full Thickness without Exposed Support Structure -Classification - Allen Grading ( Grade 1 Diabetic Ulcer) -Change in Wound Grade/Stage No Query Text:If change please identify the Stage/Grade in the comment (ie. S2 G3) -Exudate Amt Medium (34-66%) -Exudate Type Yellow/Green -Wound Margin Distinct, Outline Attached -Granulation Amt None Present (0 %) -Granulation Quality N/A -Slough/Fibrin No -Necrosis Amt None Present (0 %) -Necrotic Tissue Type Adherent Slough -Structure Exposed N/A -Texture (Lisa-wound Skin Appearance) No Abnormality -Moisture (Lisa-wound Skin Appearance No Abnormality ) -Color (Lisa-wound Skin Appearance) No Abnormality -Temperature (Lisa-wound Skin No Abnormality Appearance) (Pt Warm) -Tenderness on Palpation (Lisa-wound No Skin Appearance) -Ulcer Cleansing Soap & Water -Foul Odor after Cleansing No -Anesthetic Used 5% Lidocaine Gel #2 R [place] Cluster -Combined with other wound No -Current Size (cm) - Length 14.3 -Current Size (cm) - Width 2.7 -Current Size (cm) - Depth 0.2 -Total Square Cm 38.61 -Date of Last Picture (Recall this 11/16/18 field) -Photo Taken No -Epithelialization None Present -Tunneling No -Undermining/Tunneling No -Circular Undermining No -Classification - Thickness Full Thickness without Exposed Support Structure -Classification - Allen Grading ( Grade 3 Diabetic Ulcer) -Change in Wound Grade/Stage No Query Text:If change please identify the Stage/Grade in the comment (ie. S2 G3) -Exudate Amt Medium (34-66%) -Exudate Type Yellow/Green -Wound Margin Distinct, Outline Attached -Granulation Amt None Present (0 %) -Granulation Quality N/A -Slough/Fibrin Yes -Necrosis Amt None Present (0 %) -Necrotic Tissue Type Eschar -Structure Exposed N/A -Texture (Lisa-wound Skin Appearance) No Abnormality -Moisture (Lisa-wound Skin Appearance No Abnormality ) -Color (Lisa-wound Skin Appearance) No Abnormality -Temperature (Lisa-wound Skin No Abnormality Appearance) (Pt Warm) -Tenderness on Palpation (Lisa-wound No Skin Appearance) -Ulcer Cleansing Soap & Water -Foul Odor after Cleansing No -Anesthetic Used 5% Lidocaine Gel #1 R 2nd toe amp/Arch/ Med Ankle -Combined with other wound No -Current Size (cm) - Length 3 -Current Size (cm) - Width 0.4 -Current Size (cm) - Depth 0.5 -Total Square Cm 1.2 -Date of Last Picture (Recall this 11/16/18 field) -Photo Taken No -Epithelialization None Present -Tunneling No -Undermining/Tunneling No -Circular Undermining No -Classification - Thickness Full Thickness without Exposed Support Structure -Classification - Allen Grading ( Grade 3 Diabetic Ulcer) -Change in Wound Grade/Stage No Query Text:If change please identify the Stage/Grade in the comment (ie. S2 G3) -Exudate Amt Medium (34-66%) -Exudate Type Serosanguineous -Wound Margin Distinct, Outline Attached -Granulation Amt None Present (0 %) -Granulation Quality N/A -Slough/Fibrin Yes -Necrosis Amt None Present (0 %) -Necrotic Tissue Type Adherent Slough -Structure Exposed N/A -Texture (Lisa-wound Skin Appearance) No Abnormality -Moisture (Lisa-wound Skin Appearance No Abnormality ) -Color (Lisa-wound Skin Appearance) No Abnormality -Temperature (Lisa-wound Skin No Abnormality Appearance) (Pt Warm) -Tenderness on Palpation (Lisa-wound No Skin Appearance) -Ulcer Cleansing Soap & Water -Foul Odor after Cleansing No -Anesthetic Used 5% Lidocaine Gel [Edema Assessment] -Lower Limb Edema Present No -Right Calf (cm) 34 -Right Ankle (cm) 21 -Right Foot (cm) 34 -Left Calf (cm) 20.3 WC - Nurse 2 - General Ulcer CM Notes Start: 11/23/18 08:14 Freq: Status: Active Protocol: Activity Type Activity Date Activity User E-Sign Co-Sign Detail Recorded Client Recorded Date Recorded By Document 11/23/18 09:10 JAMAL [id number] 11/23/18 09:16 JAMAL 11/23/18 09:10 Wound Center Nurse 2 [Procedure/Treatment] #11 RIGHT MEDIAL FOOT -Time 09:11 -Correct Patient Yes -Correct Side, Site, Position Yes -Correct Procedure Yes -Procedure Performed Yes -Type of Procedure Debridement -Clinical Debridement Subcutaneous -Post Debridement Size (cm) - Length 13 -Post Debridement Size (cm) - Width 2.5 -Post Debridement Size (cm) - Depth 0.5 -Total Square Cm 32.5 -Wound/Ulcer Outcome Not Healed -Ulcer Cleansing Rinsed/ Irrigated with Saline -Foul Odor after Cleansing No -Bioengineered Tissue No -Bleeding Controlled with Pressure -Offloading No -Treatment Response Procedure Tolerated Well #8 r Knee -Correct Patient No -Correct Side, Site, Position No -Correct Procedure No -Procedure Performed No #6 L Post -Time 09:12 -Correct Patient Yes -Correct Side, Site, Position Yes -Correct Procedure Yes -Procedure Performed Yes -Type of Procedure Debridement -Clinical Debridement Muscle -Post Debridement Size (cm) - Length 21 -Post Debridement Size (cm) - Width 2.1 -Post Debridement Size (cm) - Depth 0.5 -Total Square Cm 44.1 -Wound/Ulcer Outcome Not Healed -Foul Odor after Cleansing No -Bioengineered Tissue No -Bleeding Controlled with Pressure -Offloading No -Treatment Response Procedure Tolerated Well #5 R Lat LE -Time 09:12 -Correct Patient Yes -Correct Side, Site, Position Yes -Correct Procedure Yes -Procedure Performed Yes -Type of Procedure Debridement -Clinical Debridement Subcutaneous -Post Debridement Size (cm) - Length 2 -Post Debridement Size (cm) - Width 1.6 -Post Debridement Size (cm) - Depth 0.2 -Total Square Cm 3.2 -Wound/Ulcer Outcome Not Healed -Ulcer Cleansing Rinsed/ Irrigated with Saline -Foul Odor after Cleansing No -Bioengineered Tissue No -Bleeding Controlled with Pressure -Offloading No -Treatment Response Procedure Tolerated Well #4 R post LE -Time 09:12 -Correct Patient Yes -Correct Side, Site, Position Yes -Correct Procedure Yes -Procedure Performed Yes -Type of Procedure Debridement -Clinical Debridement Subcutaneous -Post Debridement Size (cm) - Length 1.4 -Post Debridement Size (cm) - Width 1.3 -Post Debridement Size (cm) - Depth 0.1 -Total Square Cm 1.82 -Wound/Ulcer Outcome Not Healed -Ulcer Cleansing Rinsed/ Irrigated with Saline -Foul Odor after Cleansing No -Bioengineered Tissue No -Bleeding Controlled with Pressure -Offloading No -Treatment Response Procedure Tolerated Well #3 R [facility] -Time 09:13 -Correct Patient Yes -Correct Side, Site, Position Yes -Correct Procedure Yes -Procedure Performed Yes -Type of Procedure Debridement -Clinical Debridement Subcutaneous -Post Debridement Size (cm) - Length 2.5 -Post Debridement Size (cm) - Width 0.6 -Post Debridement Size (cm) - Depth 0.3 -Total Square Cm 1.50 -Wound/Ulcer Outcome Not Healed -Ulcer Cleansing Rinsed/ Irrigated with Saline -Foul Odor after Cleansing No -Bioengineered Tissue No -Bleeding Controlled with Pressure -Offloading No -Treatment Response Procedure Tolerated Well #2 R [place] [facility] -Time 09:13 -Correct Patient Yes -Correct Side, Site, Position Yes -Correct Procedure Yes -Procedure Performed Yes -Type of Procedure Debridement -Clinical Debridement Subcutaneous -Post Debridement Size (cm) - Length 14.3 -Post Debridement Size (cm) - Width 2.8 -Post Debridement Size (cm) - Depth 0.2 -Total Square Cm 40.04 -Wound/Ulcer Outcome Not Healed -Ulcer Cleansing Rinsed/ Irrigated with Saline -Foul Odor after Cleansing No -Bioengineered Tissue No -Bleeding Controlled with Pressure #1 R 2nd toe amp/Arch/ Med Ankle -Time 09:14 -Correct Patient Yes -Correct Side, Site, Position Yes -Correct Procedure Yes -Procedure Performed Yes -Type of Procedure Debridement -Clinical Debridement Subcutaneous -Post Debridement Size (cm) - Length 3 -Post Debridement Size (cm) - Width 0.5 -Post Debridement Size (cm) - Depth 0.5 -Total Square Cm 1.5 -Wound/Ulcer Outcome Not Healed -Ulcer Cleansing Rinsed/ Irrigated with Saline -Foul Odor after Cleansing No -Bioengineered Tissue No -Bleeding Controlled with Pressure -Offloading No -Treatment Response Procedure Tolerated Well [See Physician Procedure note for Specifics] Pain Scale: 0-10 Numeric [Pain] -Is Patient Pain Free? Yes Musculoskeletal: No Tenderness to Palpation of Joints or Extremities, Muscle Wasting, - - Open second and third ray resection right lower extremity stable Neurological: - - Lack of epicritic sensation light touch Psych/Mental Status: Normal Affect, Appropriate Debridement Note Post-Debridement Measurements/Treatment WC - Nurse 2 - General Ulcer CM Notes Start: 11/23/18 08:14 Freq: Status: Active Protocol: Activity Type Activity Date Activity User E-Sign Co-Sign Detail Recorded Client Recorded Date Recorded By Document 11/23/18 09:10 JAMAL [id number] 11/23/18 09:16 JAMAL 11/23/18 09:10 Wound Center Nurse 2 #11 RIGHT MEDIAL FOOT -Time 09:11 -Correct Patient Yes -Correct Side, Site, Position Yes -Correct Procedure Yes -Procedure Performed Yes -Type of Procedure Debridement -Clinical Debridement Subcutaneous -Post Debridement Size (cm) - Length 13 -Post Debridement Size (cm) - Width 2.5 -Post Debridement Size (cm) - Depth 0.5 -Total Square Cm 32.5 -Wound/Ulcer Outcome Not Healed -Ulcer Cleansing Rinsed/ Irrigated with Saline -Foul Odor after Cleansing No -Bioengineered Tissue No -Bleeding Controlled with Pressure -Offloading No -Treatment Response Procedure Tolerated Well #8 r Knee -Correct Patient No -Correct Side, Site, Position No -Correct Procedure No -Procedure Performed No #6 L Post -Time 09:12 -Correct Patient Yes -Correct Side, Site, Position Yes -Correct Procedure Yes -Procedure Performed Yes -Type of Procedure Debridement -Clinical Debridement Muscle -Post Debridement Size (cm) - Length 21 -Post Debridement Size (cm) - Width 2.1 -Post Debridement Size (cm) - Depth 0.5 -Total Square Cm 44.1 -Wound/Ulcer Outcome Not Healed -Foul Odor after Cleansing No -Bioengineered Tissue No -Bleeding Controlled with Pressure -Offloading No -Treatment Response Procedure Tolerated Well #5 R Lat LE -Time 09:12 -Correct Patient Yes -Correct Side, Site, Position Yes -Correct Procedure Yes -Procedure Performed Yes -Type of Procedure Debridement -Clinical Debridement Subcutaneous -Post Debridement Size (cm) - Length 2 -Post Debridement Size (cm) - Width 1.6 -Post Debridement Size (cm) - Depth 0.2 -Total Square Cm 3.2 -Wound/Ulcer Outcome Not Healed -Ulcer Cleansing Rinsed/ Irrigated with Saline -Foul Odor after Cleansing No -Bioengineered Tissue No -Bleeding Controlled with Pressure -Offloading No -Treatment Response Procedure Tolerated Well #4 R post LE -Time 09:12 -Correct Patient Yes -Correct Side, Site, Position Yes -Correct Procedure Yes -Procedure Performed Yes -Type of Procedure Debridement -Clinical Debridement Subcutaneous -Post Debridement Size (cm) - Length 1.4 -Post Debridement Size (cm) - Width 1.3 -Post Debridement Size (cm) - Depth 0.1 -Total Square Cm 1.82 -Wound/Ulcer Outcome Not Healed -Ulcer Cleansing Rinsed/ Irrigated with Saline -Foul Odor after Cleansing No -Bioengineered Tissue No -Bleeding Controlled with Pressure -Offloading No -Treatment Response Procedure Tolerated Well #3 R Med LE -Time 09:13 -Correct Patient Yes -Correct Side, Site, Position Yes -Correct Procedure Yes -Procedure Performed Yes -Type of Procedure Debridement -Clinical Debridement Subcutaneous -Post Debridement Size (cm) - Length 2.5 -Post Debridement Size (cm) - Width 0.6 -Post Debridement Size (cm) - Depth 0.3 -Total Square Cm 1.50 -Wound/Ulcer Outcome Not Healed -Ulcer Cleansing Rinsed/ Irrigated with Saline -Foul Odor after Cleansing No -Bioengineered Tissue No -Bleeding Controlled with Pressure -Offloading No -Treatment Response Procedure Tolerated Well #2 R [place] -Time 09:13 -Correct Patient Yes -Correct Side, Site, Position Yes -Correct Procedure Yes -Procedure Performed Yes -Type of Procedure Debridement -Clinical Debridement Subcutaneous -Post Debridement Size (cm) - Length 14.3 -Post Debridement Size (cm) - Width 2.8 -Post Debridement Size (cm) - Depth 0.2 -Total Square Cm 40.04 -Wound/Ulcer Outcome Not Healed -Ulcer Cleansing Rinsed/ Irrigated with Saline -Foul Odor after Cleansing No -Bioengineered Tissue No -Bleeding Controlled with Pressure #1 R 2nd toe amp/Arch/ Med Ankle -Time 09:14 -Correct Patient Yes -Correct Side, Site, Position Yes -Correct Procedure Yes -Procedure Performed Yes -Type of Procedure Debridement -Clinical Debridement Subcutaneous -Post Debridement Size (cm) - Length 3 -Post Debridement Size (cm) - Width 0.5 -Post Debridement Size (cm) - Depth 0.5 -Total Square Cm 1.5 -Wound/Ulcer Outcome Not Healed -Ulcer Cleansing Rinsed/ Irrigated with Saline -Foul Odor after Cleansing No -Bioengineered Tissue No -Bleeding Controlled with Pressure -Offloading No -Treatment Response Procedure Tolerated Well Pain Scale: 0-10 Numeric Is Patient Pain Free? Yes Wound debrided: posterior leg Laterality: Left Wound Grade/Stage: grade 3 Type of Debridement: Excisional debridement Anesthesia Used: 5% Lidocaine Gel Depth: in the subcutaneous layer, to muscle Percentage of wound debrided: 10 Instrument Used: #15 blade, Forceps Tissue Removed: fibrous, devitalized subcutaneous and tendon, biofilm, slough Severity: Necrosis of Muscle Amount of bleeding with debridement: Mild Bleeding Controlled with: Pressure Patient tolerated procedure well - Additional Wound Wound debrided: anterior leg Laterality: Right Wound Grade/Stage: grade 1 Type of Debridement: Excisional debridement Anesthesia Used: 5% Lidocaine Gel Depth: in the subcutaneous layer Percentage of wound debrided: 100 Instrument Used: #15 blade Tissue Removed: fibrous, devitalized subcutaneous, biofilm, slough Severity: Fat Layer Exposed Amount of bleeding with debridement: Mild Bleeding Controlled with: Pressure Patient tolerated procedure: Patient tolerated procedure well - Additional Wound Wound debrided: medial leg Laterality: Right Wound Grade/Stage: grade 2 Type of Debridement: Excisional debridement Anesthesia Used: 5% Lidocaine Gel Depth: in the subcutaneous layer Percentage of wound debrided: 100 Instrument Used: #15 blade Tissue Removed: fibrous, devitalized subcutaneous, biofilm, slough Severity: Fat Layer Exposed Amount of bleeding with debridement: Mild Bleeding Controlled with: Pressure Patient tolerated procedure: Patient tolerated procedure well - Additional Wound Wound debrided: lateral ankle Laterality: Right Wound Grade/Stage: grade 1 Type of Debridement: Excisional debridement Anesthesia Used: 5% Lidocaine Gel Depth: in the subcutaneous layer Percentage of wound debrided: 100 Instrument Used: #15 blade Tissue Removed: fibrous, devitalized subcutaneous, biofilm, slough Severity: Fat Layer Exposed Amount of bleeding with debridement: Mild Bleeding Controlled with: Pressure Patient tolerated procedure: Patient tolerated procedure well - Additional Wound Wound debrided: foreoot Laterality: Right Wound Grade/Stage: grade 3 Type of Debridement: Excisional debridement Anesthesia Used: 5% Lidocaine Gel Depth: in the subcutaneous layer Percentage of wound debrided: 100 Instrument Used: #15 blade Tissue Removed: fibrous, devitalized subcutaneous, biofilm, slough Severity: Fat Layer Exposed Amount of bleeding with debridement: Mild Bleeding Controlled with: Pressure Patient tolerated procedure: Patient tolerated procedure well - Additional Wound Wound debrided: foot / ankle Laterality: Right Wound Grade/Stage: grade 3 Type of Debridement: Excisional debridement Anesthesia Used: 5% Lidocaine Gel Depth: in the subcutaneous layer Percentage of wound debrided: 100 Instrument Used: #15 blade Tissue Removed: fibrous, devitalized subcutaneous, biofilm, slough Severity: Fat Layer Exposed Amount of bleeding with debridement: Mild Bleeding Controlled with: Pressure Patient tolerated procedure: Patient tolerated procedure well Assessment/Plan Active Problems (Last Updated 09/28/18 @ 12:41 by Geraldine Steele) Ulcer of right foot with fat layer exposed (Chronic) Delayed wound healing (Chronic) Vasculitis (Chronic) Tobacco dependence due to cigarettes (Chronic) Ulcer of right lower extremity with fat layer exposed (Chronic) Ulcer of left lower extremity with fat layer exposed (Chronic) 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 Diabetic neuropathy. Malnutrition suspected. 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 Delayed healing. Gait impairment and fall risk. Other comorbidities, right knee ulcer, tendon exposed (Dr. Gilbert managed), left knee ulcer (Dr. Gilbert managed) Plan: I reviewed and discussed his case with the patient and the patient's . Subcutaneous debridements were performed as noted in the clinical panel. I Recommended changing the dressings daily home nursing staff assistance with santyl to right knee (per Dr. Gilbert), and aquacel ag to the leg ulcers, santyl to devitalized tendon zones (right medial leg and part of the right foot). I do not appreciate any local signs of infection at this time. There is no purulence on expression, redness, or swelling to the site. To monitor closely and call immediately if this returns. The ulcer sites have improved quality with granulation tissue. Nursing staff did report an order with dressing removal and this did not appreciate at this time. The patient and his were alerted to monitor this very closely. He has completed a 6 weeks of IV antibiotic of Unasyn. I recommend he avoids laying directly on his wounds to reduce pressure, and I was concerned about his perfusion to his limbs. He had an arterial Doppler scheduled with Dr. Morgan's staff on August 02, 2018 and overall perfusion was confirmed; additional intervention or workup was not recommended. It is also noted that he did have venous Doppler performed with reflux evaluation. He did not have evidence of deep venous thrombosis or venous insufficiency at that time; the vessels were compressible. To continue with nutritional supplementation optimize healing; I recommend Juan. I recommend he sustained from smoking and alcohol activities to optimize healing as well. His workup for vasculitis and underlying autoimmune disorder is also pending. A punch biopsy was sent during his last surgical intervention on June 10 and this demonstrated inflammatory changes without malignancy. He had initial screening labs and so far he has a negative RA titer, HL of the 27, KEVIN, anti-CCP, and rheumatoid factor. Several his antibody screenings were not reportable. Hyperbaric oxygen therapy was recommended and it is noted his ejection fraction was most recently 50%. He refuses at this time. Dr. Gilbert continues to manage his bilateral knee ulcers including debridements and traditional wound care plan. He refuses surgical intervention at this time to bilateral lower extremities. I answered all of his questions. Additional amputation of the right foot is not planned due to his fairly nonambulatory status. Smoking cessation was discussed in detail again today and compliance is imperative to optimize healing of surgical success. I recommend further follow-up at the wound care center 1 week with me, or call sooner if he has any questions. Compliance at this advanced wound care center was reviewed. He understands additional palliative care programs are an option if he does not wish to proceed with advanced wound care opportunities that has been recommended. He is a complex care candidate.
[2018-11-30 08:12] VITALS: BP 149/78; PULSE 72; RESP 18; TEMP 36
--- NOTE | 2018-11-30 09:40 | PN.PCM_ITS ---
(1) Skin ulcer of right knee with fat layer exposed Status: Chronic Current Visit: No Code(s): L97.812 - Non-pressure chronic ulcer of other part of right lower leg with fat layer exposed Type of Wound Chief Complaint: right and left Leg ulcers and right foot ulcer. New left foot ulcer History of Wound: Mr. Arguello is a 63-year-old male with multiple comorbidities follows up for delayed healing ulcers to the right foot as well as bilateral legs. It is noted he previously had widespread debridements and fasciotomies performed to bilateral lower extremities secondary to life-threatening and limb threatening infection; this was previously performed at [facility]. He continues to follow with Dr. Gilbert for her knee ulcers, and I saw him today for his other ulcer site of the right knee. He denies chills, fever or otherwise feeling of unwell. He presents today with his . He still refuses advanced wound care product application. He refuses hyperbaric oxygen therapy treatment. He is inquiring about insurance coverage and will bring the paperwork next week. He previously refused surgical intervention. He sent his wound VAC back as advised because he is completed this treatment course. He denies any known injury, redness or odor. His is applied Santyl to any necrotic tissue was advised. Progress of Wound: Stable. No new concerns at this time. - Physical Exam Vital Signs Temp Pulse Resp BP 96.8 F L 72 18 149/78 H 11/30/18 08:12 11/30/18 08:12 11/30/18 08:12 11/30/18 08:12 General: Alert, Oriented x3, Cooperative, No apparent distress HEENT: Atraumatic Oral: Moist Mucosa Neck: Supple Lungs: Normal air movement Extremities: No cyanosis Skin: Ulcer/ Wound Wound Measurements and Assessment WC - Nurse 1 - General Ulcer Measurement Start: 11/23/18 08:14 Freq: Status: Active Protocol: Activity Type Activity Date Activity User E-Sign Co-Sign Detail Recorded Client Recorded Date Recorded By Document 11/30/18 08:12 DL [id number] 11/30/18 08:32 DL 11/30/18 08:12 Wound Center Nurse 1 [Ulcer Assessment] #11 RIGHT MEDIAL FOOT -Combined with other wound No -Current Size (cm) - Length 13 -Current Size (cm) - Width 2 -Current Size (cm) - Depth 0.7 -Total Square Cm 26 -Date of Last Picture (Recall this 11/30/18 field) -Photo Taken Yes -Epithelialization None Present -Tunneling No -Undermining/Tunneling No -Circular Undermining No -Temperature (Lisa-wound Skin No Abnormality Appearance) (Pt Warm) -Tenderness on Palpation (Lisa-wound No Skin Appearance) -Ulcer Cleansing Rinsed/ Irrigated with Saline -Foul Odor after Cleansing No -Anesthetic Used 4% Lidocaine Solution #8 r Knee -Combined with other wound No -Current Size (cm) - Length 0.9 -Current Size (cm) - Width 1.1 -Current Size (cm) - Depth 0.3 -Total Square Cm 0.99 -Date of Last Picture (Recall this 11/30/18 field) -Photo Taken Yes -Circular Undermining Yes -Exudate Amt Medium (34-66%) -Exudate Type Serosanguineous -Wound Margin Thickened -Granulation Amt Small (1-33%) -Granulation Quality [place] -Slough/Fibrin Yes -Necrosis Amt Medium (34-66%) -Necrotic Tissue Type Adherent Slough -Temperature (Lisa-wound Skin No Abnormality Appearance) (Pt Warm) -Tenderness on Palpation (Lisa-wound No Skin Appearance) -Ulcer Cleansing Rinsed/ Irrigated with Saline -Foul Odor after Cleansing No -Anesthetic Used 4% Lidocaine Solution #6 L Post -Combined with other wound No -Current Size (cm) - Length 21 -Current Size (cm) - Width 1.7 -Current Size (cm) - Depth 0.3 -Total Square Cm 35.7 -Date of Last Picture (Recall this 11/30/18 field) -Photo Taken Yes -Epithelialization None Present -Tunneling No -Undermining/Tunneling No -Circular Undermining No -Exudate Amt Medium (34-66%) -Exudate Type Yellow/Green -Wound Margin Thickened -Granulation Amt Medium (34-66%) -Granulation Quality [place] -Slough/Fibrin Yes -Necrosis Amt Medium (34-66%) -Necrotic Tissue Type Adherent Slough -Structure Exposed Fascia -Texture (Lisa-wound Skin Appearance) Scarring -Moisture (Lisa-wound Skin Appearance Dry/Scaly ) -Color (Lisa-wound Skin Appearance) No Abnormality Assessed -Temperature (Lisa-wound Skin No Abnormality Appearance) (Pt Warm) -Tenderness on Palpation (Lisa-wound No Skin Appearance) -Ulcer Cleansing Rinsed/ Irrigated with Saline -Foul Odor after Cleansing No -Anesthetic Used 4% Lidocaine Solution #5 R Lat LE -Combined with other wound No -Current Size (cm) - Length 1.8 -Current Size (cm) - Width 1.1 -Current Size (cm) - Depth 0.2 -Total Square Cm 1.98 -Date of Last Picture (Recall this 11/30/18 field) -Photo Taken Yes -Epithelialization None Present -Tunneling No -Undermining/Tunneling No -Circular Undermining No -Exudate Amt None Present (0 %) -Wound Margin Distinct, Outline Attached -Granulation Amt Small (1-33%) -Granulation Quality [place] -Necrosis Amt Large (67-100%) -Necrotic Tissue Type Adherent Slough -Moisture (Lisa-wound Skin Appearance Dry/Scaly ) -Temperature (Lisa-wound Skin No Abnormality Appearance) (Pt Warm) -Tenderness on Palpation (Lisa-wound No Skin Appearance) -Ulcer Cleansing Rinsed/ Irrigated with Saline -Foul Odor after Cleansing No -Anesthetic Used 4% Lidocaine Solution #4 R post LE -Combined with other wound No -Current Size (cm) - Length 1.4 -Current Size (cm) - Width 1.1 -Current Size (cm) - Depth 0.1 -Total Square Cm 1.54 -Date of Last Picture (Recall this 11/30/18 field) -Photo Taken Yes -Epithelialization None Present -Tunneling No -Undermining/Tunneling No -Circular Undermining No -Granulation Amt None Present (0 %) -Granulation Quality N/A -Slough/Fibrin Yes -Necrosis Amt Large (67-100%) -Necrotic Tissue Type Adherent Slough #3 R Med LE -Combined with other wound No -Current Size (cm) - Length 2.4 -Current Size (cm) - Width 0.5 -Current Size (cm) - Depth 0.6 -Total Square Cm 1.20 -Date of Last Picture (Recall this 11/30/18 field) -Photo Taken Yes -Tunneling No -Undermining/Tunneling Yes -Undermining/Tunneling Starts (O' 11 clock) -Undermining/Tunneling Ends (O'clock) 7 -Maximum Distance (cm) 0.3 -Circular Undermining No -Exudate Amt Medium (34-66%) -Exudate Type Serosanguineous -Wound Margin Distinct, Outline Attached -Temperature (Lisa-wound Skin No Abnormality Appearance) (Pt Warm) -Tenderness on Palpation (Lisa-wound No Skin Appearance) -Ulcer Cleansing Rinsed/ Irrigated with Saline -Foul Odor after Cleansing No -Anesthetic Used 4% Lidocaine Solution #2 R [place] -Combined with other wound No -Current Size (cm) - Length 9.5 -Current Size (cm) - Width 2.8 -Current Size (cm) - Depth 0.2 -Total Square Cm 26.60 -Date of Last Picture (Recall this 11/30/18 field) -Photo Taken Yes -Epithelialization Small 1-33% -Tunneling No -Undermining/Tunneling No -Circular Undermining No -Temperature (Lisa-wound Skin No Abnormality Appearance) (Pt Warm) -Tenderness on Palpation (Lisa-wound No Skin Appearance) -Ulcer Cleansing Rinsed/ Irrigated with Saline -Foul Odor after Cleansing No -Anesthetic Used 4% Lidocaine Solution #1 R 2nd toe amp -Combined with other wound No -Current Size (cm) - Length 2.7 -Current Size (cm) - Width 0.6 -Current Size (cm) - Depth 0.6 -Total Square Cm 1.62 -Date of Last Picture (Recall this 11/30/18 field) -Photo Taken Yes -Epithelialization Small 1-33% -Tunneling No -Undermining/Tunneling No -Circular Undermining No -Granulation Amt Medium (34-66%) -Granulation Quality Red -Slough/Fibrin Yes -Necrosis Amt Medium (34-66%) -Necrotic Tissue Type Adherent Slough -Structure Exposed None/Limited to Skin Breakdown -Texture (Lisa-wound Skin Appearance) Scarring -Moisture (Lisa-wound Skin Appearance Dry/Scaly ) -Color (Lisa-wound Skin Appearance) No Abnormality Assessed -Temperature (Lisa-wound Skin No Abnormality Appearance) (Pt Warm) -Tenderness on Palpation (Lisa-wound No Skin Appearance) -Ulcer Cleansing Rinsed/ Irrigated with Saline -Foul Odor after Cleansing No -Anesthetic Used 4% Lidocaine Solution [Edema Assessment] -Lower Limb Edema Present No -Right Calf (cm) 33.8 -Right Ankle (cm) 20 -Left Calf (cm) 33.4 -Left Ankle (cm) 20 WC - Nurse 2 - General Ulcer CM Notes Start: 11/23/18 08:14 Freq: Status: Active Protocol: Activity Type Activity Date Activity User E-Sign Co-Sign Detail Recorded Client Recorded Date Recorded By Document 11/30/18 08:42 JF [id number] 11/30/18 08:46 JF Document 11/30/18 09:18 MW [id number] 11/30/18 09:18 MW 11/30/18 11/30/18 08:42 09:18 Wound Center Nurse 2 [Procedure/Treatment] #11 RIGHT MEDIAL FOOT -Time 08:42 -Correct Patient Yes -Correct Side, Site, Position Yes -Correct Procedure Yes -Procedure Performed Yes -Type of Procedure Debridement -Clinical Debridement Subcutaneous -Post Debridement Size (cm) - Length 13.1 -Post Debridement Size (cm) - Width 2 -Post Debridement Size (cm) - Depth 0.7 -Total Square Cm 26.2 -Wound/Ulcer Outcome Not Healed -Ulcer Cleansing Rinsed/ Irrigated with Saline -Foul Odor after Cleansing No -Bioengineered Tissue No -Bleeding Controlled with Pressure -Offloading No -Treatment Response Procedure Tolerated Well #8 r Knee -Time 09:18 -Correct Patient Yes -Correct Side, Site, Position Yes -Correct Procedure Yes -Procedure Performed Yes -Type of Procedure Debridement -Clinical Debridement Subcutaneous -Post Debridement Size (cm) - Length 0.8 -Post Debridement Size (cm) - Width 1.0 -Post Debridement Size (cm) - Depth 0.2 -Total Square Cm 0.80 -Wound/Ulcer Outcome Not Healed -Ulcer Cleansing Rinsed/ Irrigated with Saline -Foul Odor after Cleansing No -Bioengineered Tissue No -Bleeding Controlled with Pressure -Offloading No -Treatment Response Procedure Tolerated Well #6 L Post -Time 08:43 -Correct Patient Yes -Correct Side, Site, Position Yes -Correct Procedure Yes -Procedure Performed Yes -Type of Procedure Debridement -Clinical Debridement Muscle -Post Debridement Size (cm) - Length 21.1 -Post Debridement Size (cm) - Width 1.7 -Post Debridement Size (cm) - Depth 0.3 -Total Square Cm 35.87 -Wound/Ulcer Outcome Not Healed -Ulcer Cleansing Rinsed/ Irrigated with Saline -Foul Odor after Cleansing No -Bioengineered Tissue No -Bleeding Controlled with Pressure -Other 20% of tendon debrided. 15% of ulcer debrided. -Offloading No -Treatment Response Procedure Tolerated Well #5 R Lat LE -Time 08:43 -Correct Patient Yes -Correct Side, Site, Position Yes -Correct Procedure Yes -Procedure Performed Yes -Type of Procedure Debridement -Clinical Debridement Subcutaneous -Post Debridement Size (cm) - Length 1.8 -Post Debridement Size (cm) - Width 1.2 -Post Debridement Size (cm) - Depth 0.2 -Total Square Cm 2.16 -Wound/Ulcer Outcome Not Healed -Ulcer Cleansing Rinsed/ Irrigated with Saline -Foul Odor after Cleansing No -Bioengineered Tissue No -Bleeding Controlled with Pressure -Offloading No -Treatment Response Procedure Tolerated Well #4 R post LE -Time 08:44 -Correct Patient Yes -Correct Side, Site, Position Yes -Correct Procedure Yes -Procedure Performed Yes -Type of Procedure Debridement -Clinical Debridement Subcutaneous -Post Debridement Size (cm) - Length 1.5 -Post Debridement Size (cm) - Width 1.2 -Post Debridement Size (cm) - Depth 0.1 -Total Square Cm 1.80 -Wound/Ulcer Outcome Not Healed -Ulcer Cleansing Rinsed/ Irrigated with Saline -Foul Odor after Cleansing No -Bioengineered Tissue No -Bleeding Controlled with Pressure -Offloading No -Treatment Response Procedure Tolerated Well #3 R Med LE -Time 08:44 -Correct Patient Yes -Correct Side, Site, Position Yes -Correct Procedure Yes -Procedure Performed Yes -Type of Procedure Debridement -Clinical Debridement Subcutaneous -Post Debridement Size (cm) - Length 2.5 -Post Debridement Size (cm) - Width 0.5 -Post Debridement Size (cm) - Depth 0.6 -Total Square Cm 1.25 -Wound/Ulcer Outcome Not Healed -Ulcer Cleansing Rinsed/ Irrigated with Saline -Foul Odor after Cleansing No -Bioengineered Tissue No -Bleeding Controlled with Pressure -Offloading No -Treatment Response Procedure Tolerated Well #2 R [place] Cluster -Time 08:45 -Correct Patient Yes -Correct Side, Site, Position Yes -Correct Procedure Yes -Procedure Performed Yes -Type of Procedure Debridement -Clinical Debridement Subcutaneous -Post Debridement Size (cm) - Length 9.5 -Post Debridement Size (cm) - Width 2.9 -Post Debridement Size (cm) - Depth 0.2 -Total Square Cm 27.55 -Wound/Ulcer Outcome Not Healed -Ulcer Cleansing Rinsed/ Irrigated with Saline -Foul Odor after Cleansing No -Bioengineered Tissue No -Bleeding Controlled with Pressure -Offloading No -Treatment Response Procedure Tolerated Well #1 R 2nd toe amp -Time 08:45 -Correct Patient Yes -Correct Side, Site, Position Yes -Correct Procedure Yes -Procedure Performed Yes -Type of Procedure Debridement -Clinical Debridement Subcutaneous -Post Debridement Size (cm) - Length 2.8 -Post Debridement Size (cm) - Width 0.6 -Post Debridement Size (cm) - Depth 0.6 -Total Square Cm 1.68 -Wound/Ulcer Outcome Not Healed -Ulcer Cleansing Rinsed/ Irrigated with Saline -Foul Odor after Cleansing No -Bioengineered Tissue No -Bleeding Controlled with Pressure -Offloading No -Treatment Response Procedure Tolerated Well [See Physician Procedure note for Specifics] Pain Scale: 0-10 Numeric [Pain] -Is Patient Pain Free? Yes Musculoskeletal: No Muscle Wasting Neurological: Cranial nerves II-XII grossly intact Debridement Note Post-Debridement Measurements/Treatment WC - Nurse 2 - General Ulcer CM Notes Start: 11/23/18 08:14 Freq: Status: Active Protocol: Activity Type Activity Date Activity User E-Sign Co-Sign Detail Recorded Client Recorded Date Recorded By Document 11/23/18 09:10 [id number] 11/23/18 09:16 Document 11/30/18 08:42 [id number] 11/30/18 08:46 Document 11/30/18 09:18 MW [id number] 11/30/18 09:18 MW 11/23/18 11/30/18 11/30/18 09:10 08:42 09:18 Wound Center Nurse 2 #11 RIGHT MEDIAL FOOT -Time 09:11 08:42 -Correct Patient Yes Yes -Correct Side, Site, Position Yes Yes -Correct Procedure Yes Yes -Procedure Performed Yes Yes -Type of Procedure Debridement Debridement -Clinical Debridement Subcutaneous Subcutaneous -Post Debridement Size (cm) - Length 13 13.1 -Post Debridement Size (cm) - Width 2.5 2 -Post Debridement Size (cm) - Depth 0.5 0.7 -Total Square Cm 32.5 26.2 -Wound/Ulcer Outcome Not Healed Not Healed -Ulcer Cleansing Rinsed/ Rinsed/ Irrigated with Irrigated with Saline Saline -Foul Odor after Cleansing No No -Bioengineered Tissue No No -Bleeding Controlled with Pressure Pressure -Offloading No No -Treatment Response Procedure Procedure Tolerated Well Tolerated Well #8 r Knee -Time 09:18 -Correct Patient No Yes -Correct Side, Site, Position No Yes -Correct Procedure No Yes -Procedure Performed No Yes -Type of Procedure Debridement -Clinical Debridement Subcutaneous -Post Debridement Size (cm) - Length 0.8 -Post Debridement Size (cm) - Width 1.0 -Post Debridement Size (cm) - Depth 0.2 -Total Square Cm 0.80 -Wound/Ulcer Outcome Not Healed -Ulcer Cleansing Rinsed/ Irrigated with Saline -Foul Odor after Cleansing No -Bioengineered Tissue No -Bleeding Controlled with Pressure -Offloading No -Treatment Response Procedure Tolerated Well #6 L Post -Time 09:12 08:43 -Correct Patient Yes Yes -Correct Side, Site, Position Yes Yes -Correct Procedure Yes Yes -Procedure Performed Yes Yes -Type of Procedure Debridement Debridement -Clinical Debridement Muscle Muscle -Post Debridement Size (cm) - Length 21 21.1 -Post Debridement Size (cm) - Width 2.1 1.7 -Post Debridement Size (cm) - Depth 0.5 0.3 -Total Square Cm 44.1 35.87 -Wound/Ulcer Outcome Not Healed Not Healed -Ulcer Cleansing Rinsed/ Irrigated with Saline -Foul Odor after Cleansing No No -Bioengineered Tissue No No -Bleeding Controlled with Pressure Pressure -Other 20% of tendon debrided. 15% of ulcer debrided. -Offloading No No -Treatment Response Procedure Procedure Tolerated Well Tolerated Well #5 R Lat LE -Time 09:12 08:43 -Correct Patient Yes Yes -Correct Side, Site, Position Yes Yes -Correct Procedure Yes Yes -Procedure Performed Yes Yes -Type of Procedure Debridement Debridement -Clinical Debridement Subcutaneous Subcutaneous -Post Debridement Size (cm) - Length 2 1.8 -Post Debridement Size (cm) - Width 1.6 1.2 -Post Debridement Size (cm) - Depth 0.2 0.2 -Total Square Cm 3.2 2.16 -Wound/Ulcer Outcome Not Healed Not Healed -Ulcer Cleansing Rinsed/ Rinsed/ Irrigated with Irrigated with Saline Saline -Foul Odor after Cleansing No No -Bioengineered Tissue No No -Bleeding Controlled with Pressure Pressure -Offloading No No -Treatment Response Procedure Procedure Tolerated Well Tolerated Well #4 R post LE -Time 09:12 08:44 -Correct Patient Yes Yes -Correct Side, Site, Position Yes Yes -Correct Procedure Yes Yes -Procedure Performed Yes Yes -Type of Procedure Debridement Debridement -Clinical Debridement Subcutaneous Subcutaneous -Post Debridement Size (cm) - Length 1.4 1.5 -Post Debridement Size (cm) - Width 1.3 1.2 -Post Debridement Size (cm) - Depth 0.1 0.1 -Total Square Cm 1.82 1.80 -Wound/Ulcer Outcome Not Healed Not Healed -Ulcer Cleansing Rinsed/ Rinsed/ Irrigated with Irrigated with Saline Saline -Foul Odor after Cleansing No No -Bioengineered Tissue No No -Bleeding Controlled with Pressure Pressure -Offloading No No -Treatment Response Procedure Procedure Tolerated Well Tolerated Well #3 R Med LE -Time 09:13 08:44 -Correct Patient Yes Yes -Correct Side, Site, Position Yes Yes -Correct Procedure Yes Yes -Procedure Performed Yes Yes -Type of Procedure Debridement Debridement -Clinical Debridement Subcutaneous Subcutaneous -Post Debridement Size (cm) - Length 2.5 2.5 -Post Debridement Size (cm) - Width 0.6 0.5 -Post Debridement Size (cm) - Depth 0.3 0.6 -Total Square Cm 1.50 1.25 -Wound/Ulcer Outcome Not Healed Not Healed -Ulcer Cleansing Rinsed/ Rinsed/ Irrigated with Irrigated with Saline Saline -Foul Odor after Cleansing No No -Bioengineered Tissue No No -Bleeding Controlled with Pressure Pressure -Offloading No No -Treatment Response Procedure Procedure Tolerated Well Tolerated Well #2 R [place] Cluster -Time 09:13 08:45 -Correct Patient Yes Yes -Correct Side, Site, Position Yes Yes -Correct Procedure Yes Yes -Procedure Performed Yes Yes -Type of Procedure Debridement Debridement -Clinical Debridement Subcutaneous Subcutaneous -Post Debridement Size (cm) - Length 14.3 9.5 -Post Debridement Size (cm) - Width 2.8 2.9 -Post Debridement Size (cm) - Depth 0.2 0.2 -Total Square Cm 40.04 27.55 -Wound/Ulcer Outcome Not Healed Not Healed -Ulcer Cleansing Rinsed/ Rinsed/ Irrigated with Irrigated with Saline Saline -Foul Odor after Cleansing No No -Bioengineered Tissue No No -Bleeding Controlled with Pressure Pressure -Offloading No -Treatment Response Procedure Tolerated Well #1 R 2nd toe amp -Time 09:14 08:45 -Correct Patient Yes Yes -Correct Side, Site, Position Yes Yes -Correct Procedure Yes Yes -Procedure Performed Yes Yes -Type of Procedure Debridement Debridement -Clinical Debridement Subcutaneous Subcutaneous -Post Debridement Size (cm) - Length 3 2.8 -Post Debridement Size (cm) - Width 0.5 0.6 -Post Debridement Size (cm) - Depth 0.5 0.6 -Total Square Cm 1.5 1.68 -Wound/Ulcer Outcome Not Healed Not Healed -Ulcer Cleansing Rinsed/ Rinsed/ Irrigated with Irrigated with Saline Saline -Foul Odor after Cleansing No No -Bioengineered Tissue No No -Bleeding Controlled with Pressure Pressure -Offloading No No -Treatment Response Procedure Procedure Tolerated Well Tolerated Well Pain Scale: 0-10 Numeric Is Patient Pain Free? Yes Yes Wound debrided: Right Knee Wound Grade/Stage: Stage III Type of Debridement: Excisional debridement Anesthesia Used: 4% Lidocaine Solution Depth: Down to and including healthy tissue, in the subcutaneous layer Percentage of wound debrided: 100 Instrument Used: 3mm curette Tissue Removed: Slough and devitalized tissue Severity: Fat Layer Exposed Amount of bleeding with debridement: Mild Bleeding Controlled with: Pressure Patient tolerated procedure well Assessment/Plan Active Problems (Last Updated 09/28/18 @ 12:41 by Geraldine Steele) Ulcer of right foot with fat layer exposed (Chronic) Delayed wound healing (Chronic) Vasculitis (Chronic) Tobacco dependence due to cigarettes (Chronic) Ulcer of right lower extremity with fat layer exposed (Chronic) Ulcer of left lower extremity with fat layer exposed (Chronic) 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 Diabetic neuropathy. Malnutrition suspected. 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 Delayed healing. Gait impairment and fall risk. Other comorbidities, right knee ulcer, tendon exposed (Dr. Gilbert managed), left knee ulcer (Dr. Gilbert managed) Plan: Stable. No significant concerns or change. Debridement done as documented above. Procedure was well tolerated. Continue pomogran with adaptic over top. Change every third day. Elevate lower extremity when sitted and in bed. Increased protein intake recommended. All other wound care management per Dr. Gruber. He was advised to call with any questions or concerns. Follow up in 1 week.
--- NOTE | 2018-11-30 10:51 | PCM.WC.PN ---
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 Current Visit: Yes Code(s): L97.923 - Non-pressure chronic ulcer of unspecified part of left lower leg with necrosis of muscle (3) Ulcer of left lower extremity with fat layer exposed Status: Chronic Current Visit: Yes Code(s): L97.922 - Non-pressure chronic ulcer of unspecified part of left lower leg with fat layer exposed (4) Ulcer of right lower extremity with fat layer exposed Status: Chronic Current Visit: Yes Code(s): L97.912 - Non-pressure chronic ulcer of unspecified part of right lower leg with fat layer exposed (5) Delayed wound healing Status: Chronic Current Visit: Yes Code(s): T14.8XXD - Other injury of unspecified body region, subsequent encounter (6) Malnutrition Status: Chronic Current Visit: Yes Code(s): E46 - Unspecified protein-calorie malnutrition (7) Tobacco dependence due to cigarettes Status: Chronic Current Visit: Yes Code(s): F17.210 - Nicotine dependence, cigarettes, uncomplicated (8) Type 2 diabetes mellitus with diabetic polyneuropathy Status: Chronic Current Visit: Yes Code(s): E11.42 - Type 2 diabetes mellitus with diabetic polyneuropathy (9) Vasculitis Status: Chronic Current Visit: Yes Code(s): I77.6 - Arteritis, unspecified Type of Wound Chief Complaint: right and left Leg ulcers and right foot ulcer History of Wound: Mr. Arguello is a 63-year-old male with multiple comorbidities follows up for delayed healing ulcers to the right foot as well as bilateral legs. It is noted he previously had widespread debridements and fasciotomies performed to bilateral lower extremities secondary to life-threatening and limb threatening infection; this was previously performed at [facility]. He continues to follow with Dr. Gilbret for her knee ulcers, and I saw him today for his other ulcer site of the right knee. He denies chills, fever or otherwise feeling of unwell. He presents today with his . He still refuses advanced wound care product application and has questions today about potential insurance coverage. He refuses hyperbaric oxygen therapy treatment. He sent his wound VAC back as advised because he is completed this treatment course. He denies any known injury, redness or odor. His is applied Santyl to any necrotic tissue was advised to the left calf area. Progress of Wound: Stable - Physical Exam Vital Signs Temp Pulse Resp BP 96.8 F L 72 18 149/78 H 11/30/18 08:12 11/30/18 08:12 11/30/18 08:12 11/30/18 08:12 General: Alert, Oriented x3, Cooperative Extremities: No cyanosis, Capillary Refill Less than 3 Seconds, No Calf Tenderness - Negative Errol and [place] signs bilateral, Diminished Peripheral Pulses, Edema - Mild bilateral lower extremities, - - Open second and third ray resections right foot Skin: Ulcer/ Wound - No purulence, erythema, streaking, odor, or infection or exposed bone bilateral lower extremities. The posterior left leg ulcer is proximal tendon exposed that is devitalized and partially liquefied and this was debrided today. Wound Measurements and Assessment WC - Nurse 1 - General Ulcer Measurement Start: 11/23/18 08:14 Freq: Status: Active Protocol: Activity Type Activity Date Activity User E-Sign Co-Sign Detail Recorded Client Recorded Date Recorded By Document 11/30/18 08:12 DL [id number] 11/30/18 08:32 DL 11/30/18 08:12 Wound Center Nurse 1 [Ulcer Assessment] #11 RIGHT MEDIAL FOOT -Combined with other wound No -Current Size (cm) - Length 13 -Current Size (cm) - Width 2 -Current Size (cm) - Depth 0.7 -Total Square Cm 26 -Date of Last Picture (Recall this 11/30/18 field) -Photo Taken Yes -Epithelialization None Present -Tunneling No -Undermining/Tunneling No -Circular Undermining No -Temperature (Lisa-wound Skin No Abnormality Appearance) (Pt Warm) -Tenderness on Palpation (Lisa-wound No Skin Appearance) -Ulcer Cleansing Rinsed/ Irrigated with Saline -Foul Odor after Cleansing No -Anesthetic Used 4% Lidocaine Solution #8 r Knee -Combined with other wound No -Current Size (cm) - Length 0.9 -Current Size (cm) - Width 1.1 -Current Size (cm) - Depth 0.3 -Total Square Cm 0.99 -Date of Last Picture (Recall this 11/30/18 field) -Photo Taken Yes -Circular Undermining Yes -Exudate Amt Medium (34-66%) -Exudate Type Serosanguineous -Wound Margin Thickened -Granulation Amt Small (1-33%) -Granulation Quality [place] -Slough/Fibrin Yes -Necrosis Amt Medium (34-66%) -Necrotic Tissue Type Adherent Slough -Temperature (Lisa-wound Skin No Abnormality Appearance) (Pt Warm) -Tenderness on Palpation (Lisa-wound No Skin Appearance) -Ulcer Cleansing Rinsed/ Irrigated with Saline -Foul Odor after Cleansing No -Anesthetic Used 4% Lidocaine Solution #6 L Post -Combined with other wound No -Current Size (cm) - Length 21 -Current Size (cm) - Width 1.7 -Current Size (cm) - Depth 0.3 -Total Square Cm 35.7 -Date of Last Picture (Recall this 11/30/18 field) -Photo Taken Yes -Epithelialization None Present -Tunneling No -Undermining/Tunneling No -Circular Undermining No -Exudate Amt Medium (34-66%) -Exudate Type Yellow/Green -Wound Margin Thickened -Granulation Amt Medium (34-66%) -Granulation Quality [place] -Slough/Fibrin Yes -Necrosis Amt Medium (34-66%) -Necrotic Tissue Type Adherent Slough -Structure Exposed Fascia -Texture (Lisa-wound Skin Appearance) Scarring -Moisture (Lisa-wound Skin Appearance Dry/Scaly ) -Color (Lisa-wound Skin Appearance) No Abnormality Assessed -Temperature (Lisa-wound Skin No Abnormality Appearance) (Pt Warm) -Tenderness on Palpation (Lisa-wound No Skin Appearance) -Ulcer Cleansing Rinsed/ Irrigated with Saline -Foul Odor after Cleansing No -Anesthetic Used 4% Lidocaine Solution #5 R Lat LE -Combined with other wound No -Current Size (cm) - Length 1.8 -Current Size (cm) - Width 1.1 -Current Size (cm) - Depth 0.2 -Total Square Cm 1.98 -Date of Last Picture (Recall this 11/30/18 field) -Photo Taken Yes -Epithelialization None Present -Tunneling No -Undermining/Tunneling No -Circular Undermining No -Exudate Amt None Present (0 %) -Wound Margin Distinct, Outline Attached -Granulation Amt Small (1-33%) -Granulation Quality Pale -Necrosis Amt Large (67-100%) -Necrotic Tissue Type Adherent Slough -Moisture (Lisa-wound Skin Appearance Dry/Scaly ) -Temperature (Lisa-wound Skin No Abnormality Appearance) (Pt Warm) -Tenderness on Palpation (Lisa-wound No Skin Appearance) -Ulcer Cleansing Rinsed/ Irrigated with Saline -Foul Odor after Cleansing No -Anesthetic Used 4% Lidocaine Solution #4 R post LE -Combined with other wound No -Current Size (cm) - Length 1.4 -Current Size (cm) - Width 1.1 -Current Size (cm) - Depth 0.1 -Total Square Cm 1.54 -Date of Last Picture (Recall this 11/30/18 field) -Photo Taken Yes -Epithelialization None Present -Tunneling No -Undermining/Tunneling No -Circular Undermining No -Granulation Amt None Present (0 %) -Granulation Quality N/A -Slough/Fibrin Yes -Necrosis Amt Large (67-100%) -Necrotic Tissue Type Adherent Slough #3 R Med LE -Combined with other wound No -Current Size (cm) - Length 2.4 -Current Size (cm) - Width 0.5 -Current Size (cm) - Depth 0.6 -Total Square Cm 1.20 -Date of Last Picture (Recall this 11/30/18 field) -Photo Taken Yes -Tunneling No -Undermining/Tunneling Yes -Undermining/Tunneling Starts (O' 11 clock) -Undermining/Tunneling Ends (O'clock) 7 -Maximum Distance (cm) 0.3 -Circular Undermining No -Exudate Amt Medium (34-66%) -Exudate Type Serosanguineous -Wound Margin Distinct, Outline Attached -Temperature (Lisa-wound Skin No Abnormality Appearance) (Pt Warm) -Tenderness on Palpation (Lisa-wound No Skin Appearance) -Ulcer Cleansing Rinsed/ Irrigated with Saline -Foul Odor after Cleansing No -Anesthetic Used 4% Lidocaine Solution #2 R [place] Cluster -Combined with other wound No -Current Size (cm) - Length 9.5 -Current Size (cm) - Width 2.8 -Current Size (cm) - Depth 0.2 -Total Square Cm 26.60 -Date of Last Picture (Recall this 11/30/18 field) -Photo Taken Yes -Epithelialization Small 1-33% -Tunneling No -Undermining/Tunneling No -Circular Undermining No -Temperature (Lisa-wound Skin No Abnormality Appearance) (Pt Warm) -Tenderness on Palpation (Lisa-wound No Skin Appearance) -Ulcer Cleansing Rinsed/ Irrigated with Saline -Foul Odor after Cleansing No -Anesthetic Used 4% Lidocaine Solution #1 R 2nd toe amp -Combined with other wound No -Current Size (cm) - Length 2.7 -Current Size (cm) - Width 0.6 -Current Size (cm) - Depth 0.6 -Total Square Cm 1.62 -Date of Last Picture (Recall this 11/30/18 field) -Photo Taken Yes -Epithelialization Small 1-33% -Tunneling No -Undermining/Tunneling No -Circular Undermining No -Granulation Amt Medium (34-66%) -Granulation Quality Red -Slough/Fibrin Yes -Necrosis Amt Medium (34-66%) -Necrotic Tissue Type Adherent Slough -Structure Exposed None/Limited to Skin Breakdown -Texture (Lisa-wound Skin Appearance) Scarring -Moisture (Lisa-wound Skin Appearance Dry/Scaly ) -Color (Lisa-wound Skin Appearance) No Abnormality Assessed -Temperature (Lisa-wound Skin No Abnormality Appearance) (Pt Warm) -Tenderness on Palpation (Lisa-wound No Skin Appearance) -Ulcer Cleansing Rinsed/ Irrigated with Saline -Foul Odor after Cleansing No -Anesthetic Used 4% Lidocaine Solution [Edema Assessment] -Lower Limb Edema Present No -Right Calf (cm) 33.8 -Right Ankle (cm) 20 -Left Calf (cm) 33.4 -Left Ankle (cm) 20 WC - Nurse 2 - General Ulcer CM Notes Start: 11/23/18 08:14 Freq: Status: Active Protocol: Activity Type Activity Date Activity User E-Sign Co-Sign Detail Recorded Client Recorded Date Recorded By Document 11/30/18 08:42 JF [id number] 11/30/18 08:46 JF Document 11/30/18 09:18 MW [id number] 11/30/18 09:18 MW 11/30/18 11/30/18 08:42 09:18 Wound Center Nurse 2 [Procedure/Treatment] #11 RIGHT MEDIAL FOOT -Time 08:42 -Correct Patient Yes -Correct Side, Site, Position Yes -Correct Procedure Yes -Procedure Performed Yes -Type of Procedure Debridement -Clinical Debridement Subcutaneous -Post Debridement Size (cm) - Length 13.1 -Post Debridement Size (cm) - Width 2 -Post Debridement Size (cm) - Depth 0.7 -Total Square Cm 26.2 -Wound/Ulcer Outcome Not Healed -Ulcer Cleansing Rinsed/ Irrigated with Saline -Foul Odor after Cleansing No -Bioengineered Tissue No -Bleeding Controlled with Pressure -Offloading No -Treatment Response Procedure Tolerated Well #8 r Knee -Time 09:18 -Correct Patient Yes -Correct Side, Site, Position Yes -Correct Procedure Yes -Procedure Performed Yes -Type of Procedure Debridement -Clinical Debridement Subcutaneous -Post Debridement Size (cm) - Length 0.8 -Post Debridement Size (cm) - Width 1.0 -Post Debridement Size (cm) - Depth 0.2 -Total Square Cm 0.80 -Wound/Ulcer Outcome Not Healed -Ulcer Cleansing Rinsed/ Irrigated with Saline -Foul Odor after Cleansing No -Bioengineered Tissue No -Bleeding Controlled with Pressure -Offloading No -Treatment Response Procedure Tolerated Well #6 L Post -Time 08:43 -Correct Patient Yes -Correct Side, Site, Position Yes -Correct Procedure Yes -Procedure Performed Yes -Type of Procedure Debridement -Clinical Debridement Muscle -Post Debridement Size (cm) - Length 21.1 -Post Debridement Size (cm) - Width 1.7 -Post Debridement Size (cm) - Depth 0.3 -Total Square Cm 35.87 -Wound/Ulcer Outcome Not Healed -Ulcer Cleansing Rinsed/ Irrigated with Saline -Foul Odor after Cleansing No -Bioengineered Tissue No -Bleeding Controlled with Pressure -Other 20% of tendon debrided. 15% of ulcer debrided. -Offloading No -Treatment Response Procedure Tolerated Well #5 R Lat LE -Time 08:43 -Correct Patient Yes -Correct Side, Site, Position Yes -Correct Procedure Yes -Procedure Performed Yes -Type of Procedure Debridement -Clinical Debridement Subcutaneous -Post Debridement Size (cm) - Length 1.8 -Post Debridement Size (cm) - Width 1.2 -Post Debridement Size (cm) - Depth 0.2 -Total Square Cm 2.16 -Wound/Ulcer Outcome Not Healed -Ulcer Cleansing Rinsed/ Irrigated with Saline -Foul Odor after Cleansing No -Bioengineered Tissue No -Bleeding Controlled with Pressure -Offloading No -Treatment Response Procedure Tolerated Well #4 R post LE -Time 08:44 -Correct Patient Yes -Correct Side, Site, Position Yes -Correct Procedure Yes -Procedure Performed Yes -Type of Procedure Debridement -Clinical Debridement Subcutaneous -Post Debridement Size (cm) - Length 1.5 -Post Debridement Size (cm) - Width 1.2 -Post Debridement Size (cm) - Depth 0.1 -Total Square Cm 1.80 -Wound/Ulcer Outcome Not Healed -Ulcer Cleansing Rinsed/ Irrigated with Saline -Foul Odor after Cleansing No -Bioengineered Tissue No -Bleeding Controlled with Pressure -Offloading No -Treatment Response Procedure Tolerated Well #3 R Med LE -Time 08:44 -Correct Patient Yes -Correct Side, Site, Position Yes -Correct Procedure Yes -Procedure Performed Yes -Type of Procedure Debridement -Clinical Debridement Subcutaneous -Post Debridement Size (cm) - Length 2.5 -Post Debridement Size (cm) - Width 0.5 -Post Debridement Size (cm) - Depth 0.6 -Total Square Cm 1.25 -Wound/Ulcer Outcome Not Healed -Ulcer Cleansing Rinsed/ Irrigated with Saline -Foul Odor after Cleansing No -Bioengineered Tissue No -Bleeding Controlled with Pressure -Offloading No -Treatment Response Procedure Tolerated Well #2 R [place] Cluster -Time 08:45 -Correct Patient Yes -Correct Side, Site, Position Yes -Correct Procedure Yes -Procedure Performed Yes -Type of Procedure Debridement -Clinical Debridement Subcutaneous -Post Debridement Size (cm) - Length 9.5 -Post Debridement Size (cm) - Width 2.9 -Post Debridement Size (cm) - Depth 0.2 -Total Square Cm 27.55 -Wound/Ulcer Outcome Not Healed -Ulcer Cleansing Rinsed/ Irrigated with Saline -Foul Odor after Cleansing No -Bioengineered Tissue No -Bleeding Controlled with Pressure -Offloading No -Treatment Response Procedure Tolerated Well #1 R 2nd toe amp -Time 08:45 -Correct Patient Yes -Correct Side, Site, Position Yes -Correct Procedure Yes -Procedure Performed Yes -Type of Procedure Debridement -Clinical Debridement Subcutaneous -Post Debridement Size (cm) - Length 2.8 -Post Debridement Size (cm) - Width 0.6 -Post Debridement Size (cm) - Depth 0.6 -Total Square Cm 1.68 -Wound/Ulcer Outcome Not Healed -Ulcer Cleansing Rinsed/ Irrigated with Saline -Foul Odor after Cleansing No -Bioengineered Tissue No -Bleeding Controlled with Pressure -Offloading No -Treatment Response Procedure Tolerated Well [See Physician Procedure note for Specifics] Pain Scale: 0-10 Numeric [Pain] -Is Patient Pain Free? Yes Musculoskeletal: No Tenderness to Palpation of Joints or Extremities, Muscle Wasting, - - Compartments soft to palpate bilateral lower extremities Neurological: - - Lack of epicritic sensation light touch bilateral lower extremities Psych/Mental Status: Normal Affect, Appropriate Debridement Note Post-Debridement Measurements/Treatment WC - Nurse 2 - General Ulcer CM Notes Start: 11/23/18 08:14 Freq: Status: Active Protocol: Activity Type Activity Date Activity User E-Sign Co-Sign Detail Recorded Client Recorded Date Recorded By Document 11/23/18 09:10 JF [id number] 11/23/18 09:16 JF Document 11/30/18 08:42 JF [id number] 11/30/18 08:46 JF Document 11/30/18 09:18 MW [id number] 11/30/18 09:18 MW 11/23/18 11/30/18 11/30/18 09:10 08:42 09:18 Wound Center Nurse 2 #11 RIGHT MEDIAL FOOT -Time 09:11 08:42 -Correct Patient Yes Yes -Correct Side, Site, Position Yes Yes -Correct Procedure Yes Yes -Procedure Performed Yes Yes -Type of Procedure Debridement Debridement -Clinical Debridement Subcutaneous Subcutaneous -Post Debridement Size (cm) - Length 13 13.1 -Post Debridement Size (cm) - Width 2.5 2 -Post Debridement Size (cm) - Depth 0.5 0.7 -Total Square Cm 32.5 26.2 -Wound/Ulcer Outcome Not Healed Not Healed -Ulcer Cleansing Rinsed/ Rinsed/ Irrigated with Irrigated with Saline Saline -Foul Odor after Cleansing No No -Bioengineered Tissue No No -Bleeding Controlled with Pressure Pressure -Offloading No No -Treatment Response Procedure Procedure Tolerated Well Tolerated Well #8 r Knee -Time 09:18 -Correct Patient No Yes -Correct Side, Site, Position No Yes -Correct Procedure No Yes -Procedure Performed No Yes -Type of Procedure Debridement -Clinical Debridement Subcutaneous -Post Debridement Size (cm) - Length 0.8 -Post Debridement Size (cm) - Width 1.0 -Post Debridement Size (cm) - Depth 0.2 -Total Square Cm 0.80 -Wound/Ulcer Outcome Not Healed -Ulcer Cleansing Rinsed/ Irrigated with Saline -Foul Odor after Cleansing No -Bioengineered Tissue No -Bleeding Controlled with Pressure -Offloading No -Treatment Response Procedure Tolerated Well #6 L Post -Time 09:12 08:43 -Correct Patient Yes Yes -Correct Side, Site, Position Yes Yes -Correct Procedure Yes Yes -Procedure Performed Yes Yes -Type of Procedure Debridement Debridement -Clinical Debridement Muscle Muscle -Post Debridement Size (cm) - Length 21 21.1 -Post Debridement Size (cm) - Width 2.1 1.7 -Post Debridement Size (cm) - Depth 0.5 0.3 -Total Square Cm 44.1 35.87 -Wound/Ulcer Outcome Not Healed Not Healed -Ulcer Cleansing Rinsed/ Irrigated with Saline -Foul Odor after Cleansing No No -Bioengineered Tissue No No -Bleeding Controlled with Pressure Pressure -Other 20% of tendon debrided. 15% of ulcer debrided. -Offloading No No -Treatment Response Procedure Procedure Tolerated Well Tolerated Well #5 R Lat LE -Time 09:12 08:43 -Correct Patient Yes Yes -Correct Side, Site, Position Yes Yes -Correct Procedure Yes Yes -Procedure Performed Yes Yes -Type of Procedure Debridement Debridement -Clinical Debridement Subcutaneous Subcutaneous -Post Debridement Size (cm) - Length 2 1.8 -Post Debridement Size (cm) - Width 1.6 1.2 -Post Debridement Size (cm) - Depth 0.2 0.2 -Total Square Cm 3.2 2.16 -Wound/Ulcer Outcome Not Healed Not Healed -Ulcer Cleansing Rinsed/ Rinsed/ Irrigated with Irrigated with Saline Saline -Foul Odor after Cleansing No No -Bioengineered Tissue No No -Bleeding Controlled with Pressure Pressure -Offloading No No -Treatment Response Procedure Procedure Tolerated Well Tolerated Well #4 R post LE -Time 09:12 08:44 -Correct Patient Yes Yes -Correct Side, Site, Position Yes Yes -Correct Procedure Yes Yes -Procedure Performed Yes Yes -Type of Procedure Debridement Debridement -Clinical Debridement Subcutaneous Subcutaneous -Post Debridement Size (cm) - Length 1.4 1.5 -Post Debridement Size (cm) - Width 1.3 1.2 -Post Debridement Size (cm) - Depth 0.1 0.1 -Total Square Cm 1.82 1.80 -Wound/Ulcer Outcome Not Healed Not Healed -Ulcer Cleansing Rinsed/ Rinsed/ Irrigated with Irrigated with Saline Saline -Foul Odor after Cleansing No No -Bioengineered Tissue No No -Bleeding Controlled with Pressure Pressure -Offloading No No -Treatment Response Procedure Procedure Tolerated Well Tolerated Well #3 R Med LE -Time 09: 08:44 -Correct Patient Yes Yes -Correct Side, Site, Position Yes Yes -Correct Procedure Yes Yes -Procedure Performed Yes Yes -Type of Procedure Debridement Debridement -Clinical Debridement Subcutaneous Subcutaneous -Post Debridement Size (cm) - Length 2.5 2.5 -Post Debridement Size (cm) - Width 0.6 0.5 -Post Debridement Size (cm) - Depth 0.3 0.6 -Total Square Cm 1.50 1.25 -Wound/Ulcer Outcome Not Healed Not Healed -Ulcer Cleansing Rinsed/ Rinsed/ Irrigated with Irrigated with Saline Saline -Foul Odor after Cleansing No No -Bioengineered Tissue No No -Bleeding Controlled with Pressure Pressure -Offloading No No -Treatment Response Procedure Procedure Tolerated Well Tolerated Well #2 R [place] Cluster -Time 09: 08:45 -Correct Patient Yes Yes -Correct Side, Site, Position Yes Yes -Correct Procedure Yes Yes -Procedure Performed Yes Yes -Type of Procedure Debridement Debridement -Clinical Debridement Subcutaneous Subcutaneous -Post Debridement Size (cm) - Length 14.3 9.5 -Post Debridement Size (cm) - Width 2.8 2.9 -Post Debridement Size (cm) - Depth 0.2 0.2 -Total Square Cm 40.04 27.55 -Wound/Ulcer Outcome Not Healed Not Healed -Ulcer Cleansing Rinsed/ Rinsed/ Irrigated with Irrigated with Saline Saline -Foul Odor after Cleansing No No -Bioengineered Tissue No No -Bleeding Controlled with Pressure Pressure -Offloading No -Treatment Response Procedure Tolerated Well #1 R 2nd toe amp -Time 09:14 08:45 -Correct Patient Yes Yes -Correct Side, Site, Position Yes Yes -Correct Procedure Yes Yes -Procedure Performed Yes Yes -Type of Procedure Debridement Debridement -Clinical Debridement Subcutaneous Subcutaneous -Post Debridement Size (cm) - Length 3 2.8 -Post Debridement Size (cm) - Width 0.5 0.6 -Post Debridement Size (cm) - Depth 0.5 0.6 -Total Square Cm 1.5 1.68 -Wound/Ulcer Outcome Not Healed Not Healed -Ulcer Cleansing Rinsed/ Rinsed/ Irrigated with Irrigated with Saline Saline -Foul Odor after Cleansing No No -Bioengineered Tissue No No -Bleeding Controlled with Pressure Pressure -Offloading No No -Treatment Response Procedure Procedure Tolerated Well Tolerated Well Pain Scale: 0-10 Numeric Is Patient Pain Free? Yes Yes Wound debrided: posterior leg Laterality: Left Wound Grade/Stage: grade 2 Type of Debridement: Excisional debridement Anesthesia Used: 5% Lidocaine Gel Depth: in the subcutaneous layer Percentage of wound debrided: - - 15% tendon, 85% subcutaneous Instrument Used: #15 blade, Forceps Tissue Removed: fibrous, devitalized subcutaneous and tendon, biofilm, slough Severity: Necrosis of Muscle Amount of bleeding with debridement: Mild Bleeding Controlled with: Pressure Patient tolerated procedure well - Additional Wound Wound debrided: forefoot Laterality: Right Wound Grade/Stage: grade 3 Type of Debridement: Excisional debridement Anesthesia Used: 5% Lidocaine Gel Depth: in the subcutaneous layer Percentage of wound debrided: 100 Instrument Used: #15 blade Tissue Removed: fibrous, devitalized subcutaneous, biofilm, slough Severity: Fat Layer Exposed Amount of bleeding with debridement: Mild Bleeding Controlled with: Pressure Patient tolerated procedure: Patient tolerated procedure well - Additional Wound Wound debrided: medial foot / ankle Laterality: Right Wound Grade/Stage: grade 3 Type of Debridement: Excisional debridement Anesthesia Used: 5% Lidocaine Gel Depth: in the subcutaneous layer Percentage of wound debrided: 100 Instrument Used: #15 blade Tissue Removed: fibrous, devitalized subcutaneous, biofilm, slough Severity: Fat Layer Exposed Amount of bleeding with debridement: Mild Bleeding Controlled with: Pressure Patient tolerated procedure: Patient tolerated procedure well - Additional Wound Wound debrided: medial leg Laterality: Right Wound Grade/Stage: grade 1 Type of Debridement: Excisional debridement Anesthesia Used: 5% Lidocaine Gel Depth: in the subcutaneous layer Percentage of wound debrided: 100 Instrument Used: #15 blade Tissue Removed: fibrous, devitalized subcutaneous, biofilm, slough Severity: Fat Layer Exposed Amount of bleeding with debridement: Mild Bleeding Controlled with: Pressure Patient tolerated procedure: Patient tolerated procedure well - Additional Wound Wound debrided: lateral ankle Laterality: Right Wound Grade/Stage: grade 1 Type of Debridement: Excisional debridement Anesthesia Used: 5% Lidocaine Gel Depth: in the subcutaneous layer Percentage of wound debrided: 100 Instrument Used: #15 blade Tissue Removed: fibrous, devitalized subcutaneous, biofilm, slough Severity: Fat Layer Exposed Amount of bleeding with debridement: Mild Bleeding Controlled with: Pressure Patient tolerated procedure: Patient tolerated procedure well - Additional Wound Wound debrided: posterior leg Laterality: Right Wound Grade/Stage: grade 1 Type of Debridement: Excisional debridement Anesthesia Used: 5% Lidocaine Gel Depth: in the subcutaneous layer Percentage of wound debrided: 100 Instrument Used: #15 blade Tissue Removed: fibrous, devitalized subcutaneous, biofilm, slough Severity: Fat Layer Exposed Amount of bleeding with debridement: Mild Bleeding Controlled with: Pressure Patient tolerated procedure: Patient tolerated procedure well - Additional Wound Wound debrided: anterior leg Laterality: Right Wound Grade/Stage: grade 1 Type of Debridement: Excisional debridement Anesthesia Used: 5% Lidocaine Gel Depth: in the subcutaneous layer Percentage of wound debrided: 100 Instrument Used: #15 blade Tissue Removed: fibrous, devitalized subcutaneous, biofilm, slough Severity: Fat Layer Exposed Amount of bleeding with debridement: Mild Bleeding Controlled with: Pressure Patient tolerated procedure: Patient tolerated procedure well Assessment/Plan Active Problems (Last Updated 09/28/18 @ 12:41 by Geraldine Steele) Ulcer of right foot with fat layer exposed (Chronic) Delayed wound healing (Chronic) Vasculitis (Chronic) Tobacco dependence due to cigarettes (Chronic) Ulcer of right lower extremity with fat layer exposed (Chronic) Ulcer of left lower extremity with fat layer exposed (Chronic) 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 Diabetic neuropathy. Malnutrition suspected. 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 Delayed healing. Gait impairment and fall risk. Other comorbidities, right knee ulcer, tendon exposed (Dr. Gilbert managed), left knee ulcer (Dr. Gilbert managed) Plan: I reviewed and discussed his case with the patient and the patient's . Subcutaneous debridements were performed as noted in the clinical panel and tendon debridement to the posterior left leg only. I Recommended changing the dressings daily home nursing staff assistance with santyl to right knee (per Dr. Gilbert), and aquacel ag to the leg ulcers, santyl to devitalized tendon zones (left posterior proximal leg ulcer site). I do not appreciate any local signs of infection at this time. There is no purulence on expression, redness, or swelling to the site. To monitor closely and call immediately if this returns. The ulcer sites have improved quality with granulation tissue. He has completed a 6 weeks of IV antibiotic of Unasyn. I recommend he avoids laying directly on his wounds to reduce pressure, and I was concerned about his perfusion to his limbs. He had an arterial Doppler scheduled with Dr. Morgan's staff on August 02, 2018 and overall perfusion was confirmed; additional intervention or workup was not recommended. It is also noted that he did have venous Doppler performed with reflux evaluation. He did not have evidence of deep venous thrombosis or venous insufficiency at that time; the vessels were compressible. To continue with nutritional supplementation optimize healing; I recommend Juan. I recommend he sustained from smoking and alcohol activities to optimize healing as well. His workup for vasculitis and underlying autoimmune disorder is also pending. A punch biopsy was sent during his last surgical intervention on June 10 and this demonstrated inflammatory changes without malignancy. He had initial screening labs and so far he has a negative RA titer, HL of the 27, KEVIN, anti-CCP, and rheumatoid factor. Several his antibody screenings were not reportable. Hyperbaric oxygen therapy was recommended and it is noted his ejection fraction was most recently 50%. He refuses at this time. Dr. Gilbert continues to manage his bilateral knee ulcers including debridements and traditional wound care plan. He refuses surgical intervention at this time to bilateral lower extremities. I answered all of his questions. Additional amputation of the right foot is not planned due to his fairly nonambulatory status. Smoking cessation was discussed in detail again today and compliance is imperative to optimize healing of surgical success. I recommend further follow-up at the wound care center 1 week with me, or call sooner if he has any questions. Compliance at this advanced wound care center was reviewed. He understands additional palliative care programs are an option if he does not wish to proceed with advanced wound care opportunities that has been recommended. He is a complex care candidate. There is anticipated insurance coverage for application of advanced wound care product, amniofill, and the operating room setting. This was discussed in detail with him today and he will think about it again.
[2018-12-14 08:05] VITALS: BP 130/80; PULSE 94; RESP 18; TEMP 35.9
--- NOTE | 2018-12-14 10:08 | PN.PCM_ITS ---
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 Current Visit: Yes Code(s): L97.923 - Non-pressure chronic ulcer of unspecified part of left lower leg with necrosis of muscle (4) Ulcer of left lower extremity with fat layer exposed Status: Chronic Current Visit: Yes Code(s): L97.922 - Non-pressure chronic ulcer of unspecified part of left lower leg with fat layer exposed (5) Ulcer of right lower extremity with fat layer exposed Status: Chronic Current Visit: Yes Code(s): L97.912 - Non-pressure chronic ulcer of unspecified part of right lower leg with fat layer exposed (6) Delayed wound healing Status: Chronic Current Visit: Yes Code(s): T14.8XXD - Other injury of unspecified body region, subsequent encounter (7) Malnutrition Status: Chronic Current Visit: Yes Code(s): E46 - Unspecified protein- calorie malnutrition (8) Tobacco dependence due to cigarettes Status: Chronic Current Visit: Yes Code(s): F17.210 - Nicotine dependence, cigarettes, uncomplicated (9) Type 2 diabetes mellitus with diabetic polyneuropathy Status: Chronic Current Visit: Yes Code(s): E11.42 - Type 2 diabetes mellitus with diabetic polyneuropathy (10) Vasculitis Status: Chronic Current Visit: Yes Code(s): I77.6 - Arteritis, unspecified Type of Wound Date of Service: 12/14/18 Chief Complaint: right and left Leg ulcers and right foot ulcer History of Wound: Mr. Arguello is a 63-year-old male with multiple comorbidities follows up for delayed healing ulcers to the right foot as well as bilateral legs. It is noted he previously had widespread debridements and fasciotomies performed to bilateral lower extremities secondary to life-threatening and limb threatening infection; this was previously performed at [facility]. He continues to follow with Dr. Gilbert for her knee ulcers, and I saw him today for his other ulcer site of the right knee. He denies chills, fever or otherwise feeling of unwell. He presents today with his . He still refuses advanced wound care product application. He refuses hyperbaric oxygen therapy treatment. He sent his wound VAC back as advised because he is completed this treatment course. He denies any known injury, redness or odor. His is applied Santyl to any necrotic tissue was advised to the left calf area. He has decreased smoking. Progress of Wound: Stable - Physical Exam Vital Signs Temp Pulse Resp BP 96.6 F L 94 18 130/80 H 12/14/18 08:05 12/14/18 08:05 12/14/18 08:05 12/14/18 08:05 General: Alert, Oriented x3, Cooperative Extremities: No cyanosis, Capillary Refill Less than 3 Seconds, No Calf Tenderness - Negative Errol and [place] bilateral, Diminished Peripheral Pulses, Edema - Mild bilateral Skin: Ulcer/ Wound - No purulence, erythema, streaking, odor, or infection. There is still tendon exposed in the posterior left leg ulcer and this appears to be healthy today. There is some devitalized tendon exposed now from the distal posterior right leg ulcer site is debrided away. No bogginess or fluctuance or purulence bilateral lower extremities. Peripheral skin is hairless and atrophic Wound Measurements and Assessment WC - Nurse 1 - General Ulcer Measurement Start: 11/23/18 08:14 Freq: Status: Active Protocol: Activity Type Activity Date Activity User E-Sign Co-Sign Detail Recorded Client Recorded Date Recorded By Document 12/14/18 08:05 [id number] 12/14/18 08:22 DL 12/14/18 08:05 Wound Center Nurse 1 [Ulcer Assessment] #11 RIGHT MEDIAL FOOT -Combined with other wound No -Current Size (cm) - Length 13.3 -Current Size (cm) - Width 3 -Current Size (cm) - Depth 0.6 -Total Square Cm 39.9 -Photo Taken No -Epithelialization None Present -Tunneling No -Undermining/Tunneling No -Circular Undermining No -Exudate Amt Medium -Exudate Type Serosanguineous -Wound Margin Distinct, Outline Attached -Granulation Amt Small (1-33%) -Granulation Quality [place] -Slough/Fibrin Yes -Necrosis Amt None Present (0 %) -Necrotic Tissue Type Adherent Slough -Structure Exposed None/Limited to Skin Breakdown -Texture (Lisa-wound Skin Appearance) No Abnormality Assessed -Moisture (Lisa-wound Skin Appearance Dry/Scaly ) -Color (Lisa-wound Skin Appearance) No Abnormality Assessed -Temperature (Lisa-wound Skin No Abnormality Appearance) (Pt Warm) -Tenderness on Palpation (Lisa-wound No Skin Appearance) -Ulcer Cleansing Wound Cleanser -Foul Odor after Cleansing No -Anesthetic Used 4% Lidocaine Solution #8 r Knee -Combined with other wound No -Current Size (cm) - Length 0.6 -Current Size (cm) - Width 1 -Current Size (cm) - Depth 0.3 -Total Square Cm 0.6 -Photo Taken No -Epithelialization None Present -Tunneling No -Undermining/Tunneling Yes -Undermining/Tunneling Starts (O' 7 clock) -Undermining/Tunneling Ends (O'clock) 2 -Maximum Distance (cm) 0.2 -Circular Undermining No -Exudate Amt Medium -Exudate Type Serosanguineous -Granulation Amt Small (1-33%) -Granulation Quality [place] -Slough/Fibrin No -Necrosis Amt Large (67-100%) -Necrotic Tissue Type Adherent Slough -Structure Exposed None/Limited to Skin Breakdown -Texture (Lisa-wound Skin Appearance) No Abnormality Assessed -Moisture (Lisa-wound Skin Appearance No Abnormality ) Assessed -Temperature (Lisa-wound Skin No Abnormality Appearance) (Pt Warm) -Tenderness on Palpation (Lisa-wound Yes Skin Appearance) -Ulcer Cleansing Rinsed/ Irrigated with Saline -Foul Odor after Cleansing No -Anesthetic Used 4% Lidocaine Solution #6 L Post -Combined with other wound No -Current Size (cm) - Length 21 -Current Size (cm) - Width 2.5 -Current Size (cm) - Depth 0.5 -Total Square Cm 52.5 -Photo Taken No -Epithelialization None Present -Tunneling No -Undermining/Tunneling No -Circular Undermining No -Exudate Amt Medium -Exudate Type Serosanguineous -Wound Margin Distinct, Outline Attached -Granulation Amt None Present (0 %) -Granulation Quality N/A -Slough/Fibrin Yes -Necrosis Amt Large (67-100%) -Necrotic Tissue Type Adherent Slough -Structure Exposed Fascia -Texture (Lisa-wound Skin Appearance) No Abnormality Assessed -Moisture (Lisa-wound Skin Appearance Assessed ) Dry/Scaly -Color (Lisa-wound Skin Appearance) No Abnormality Assessed -Temperature (Lisa-wound Skin No Abnormality Appearance) (Pt Warm) -Tenderness on Palpation (Lisa-wound Yes Skin Appearance) -Ulcer Cleansing Wound Cleanser -Foul Odor after Cleansing No -Anesthetic Used 4% Lidocaine Solution #5 R Lat LE -Combined with other wound No -Current Size (cm) - Length 1.7 -Current Size (cm) - Width 1.5 -Current Size (cm) - Depth 0.2 -Total Square Cm 2.55 -Photo Taken No -Epithelialization None Present -Tunneling No -Undermining/Tunneling No -Wound Margin Thickened -Granulation Amt None Present (0 %) -Granulation Quality N/A -Slough/Fibrin Yes -Necrosis Amt Large (67-100%) -Necrotic Tissue Type Adherent Slough -Structure Exposed None/Limited to Skin Breakdown -Texture (Lisa-wound Skin Appearance) No Abnormality Assessed -Moisture (Lisa-wound Skin Appearance No Abnormality ) Assessed -Color (Lisa-wound Skin Appearance) No Abnormality Assessed -Temperature (Lisa-wound Skin No Abnormality Appearance) (Pt Warm) -Tenderness on Palpation (Lisa-wound No Skin Appearance) -Ulcer Cleansing Wound Cleanser -Foul Odor after Cleansing No -Anesthetic Used 4% Lidocaine Solution #4 R post LE -Combined with other wound No -Current Size (cm) - Length 1.8 -Current Size (cm) - Width 1.4 -Current Size (cm) - Depth 0.2 -Total Square Cm 2.52 -Photo Taken No -Epithelialization None Present -Tunneling No -Undermining/Tunneling No -Circular Undermining No -Exudate Amt Small -Wound Margin Thickened & Rolled Under -Granulation Amt None Present (0 %) -Granulation Quality N/A -Slough/Fibrin Yes -Necrosis Amt Large (67-100%) -Necrotic Tissue Type Adherent Slough -Texture (Lisa-wound Skin Appearance) No Abnormality Assessed -Moisture (Lisa-wound Skin Appearance No Abnormality ) Assessed -Color (Lisa-wound Skin Appearance) No Abnormality Assessed -Temperature (Lisa-wound Skin No Abnormality Appearance) (Pt Warm) -Tenderness on Palpation (Lisa-wound Yes Skin Appearance) -Ulcer Cleansing Wound Cleanser -Foul Odor after Cleansing No -Anesthetic Used 4% Lidocaine Solution #3 R Med LE -Combined with other wound No -Current Size (cm) - Length 1.7 -Current Size (cm) - Width 0.5 -Current Size (cm) - Depth 0.6 -Total Square Cm 0.85 -Photo Taken No -Epithelialization None Present -Tunneling No -Undermining/Tunneling No -Circular Undermining Yes -Wound Margin Thickened & Rolled Under -Granulation Amt None Present (0 %) -Granulation Quality N/A -Slough/Fibrin Yes -Necrosis Amt Large (67-100%) -Necrotic Tissue Type Adherent Slough -Structure Exposed None/Limited to Skin Breakdown -Texture (Lisa-wound Skin Appearance) No Abnormality Assessed -Moisture (Lisa-wound Skin Appearance No Abnormality ) Assessed -Color (Lisa-wound Skin Appearance) No Abnormality Assessed #2 R [place] -Combined with other wound No -Current Size (cm) - Length 10.4 -Current Size (cm) - Width 2.6 -Current Size (cm) - Depth 0.2 -Total Square Cm 27.04 -Photo Taken No -Epithelialization None Present -Tunneling No -Undermining/Tunneling No -Circular Undermining No -Wound Margin Thickened & Rolled Under -Granulation Amt None Present (0 %) -Granulation Quality N/A -Slough/Fibrin Yes -Necrosis Amt None Present (0 %) -Necrotic Tissue Type Adherent Slough -Structure Exposed None/Limited to Skin Breakdown -Texture (Lisa-wound Skin Appearance) No Abnormality Assessed -Moisture (Lisa-wound Skin Appearance No Abnormality ) Assessed -Color (Lisa-wound Skin Appearance) No Abnormality Assessed -Temperature (Lisa-wound Skin No Abnormality Appearance) (Pt Warm) -Tenderness on Palpation (Lisa-wound No Skin Appearance) -Ulcer Cleansing Wound Cleanser -Foul Odor after Cleansing No -Anesthetic Used 4% Lidocaine Solution #1 R 2nd toe amp -Combined with other wound No -Current Size (cm) - Length 3 -Current Size (cm) - Width 0.5 -Current Size (cm) - Depth 0.7 -Total Square Cm 1.5 -Photo Taken No -Epithelialization None Present -Tunneling No -Undermining/Tunneling No -Circular Undermining No -Exudate Amt Small -Exudate Type Serosanguineous -Wound Margin Thickened -Granulation Amt Medium (34-66%) -Granulation Quality [place] -Slough/Fibrin Yes -Necrosis Amt None Present (0 %) -Necrotic Tissue Type Adherent Slough -Structure Exposed None/Limited to Skin Breakdown -Texture (Lisa-wound Skin Appearance) No Abnormality Assessed -Moisture (Lisa-wound Skin Appearance No Abnormality ) Assessed -Color (Lisa-wound Skin Appearance) No Abnormality Assessed -Temperature (Lisa-wound Skin No Abnormality Appearance) (Pt Warm) -Tenderness on Palpation (Lisa-wound No Skin Appearance) -Ulcer Cleansing Wound Cleanser -Foul Odor after Cleansing No -Anesthetic Used 4% Lidocaine Solution [Edema Assessment] -Lower Limb Edema Present NA WC - Nurse 2 - General Ulcer CM Notes Start: 11/23/18 08:14 Freq: Status: Active Protocol: Activity Type Activity Date Activity User E-Sign Co-Sign Detail Recorded Client Recorded Date Recorded By Document 12/14/18 08:40 [id number] 12/14/18 08:49 JF Document 12/14/18 09:37 MW [id number] 12/14/18 09:39 MW 12/14/18 12/14/18 08:40 09:37 Wound Center Nurse 2 [Procedure/Treatment] #11 RIGHT MEDIAL FOOT -Time 08:40 -Correct Patient Yes -Correct Side, Site, Position Yes -Correct Procedure Yes -Procedure Performed Yes -Type of Procedure Debridement -Clinical Debridement Subcutaneous -Post Debridement Size (cm) - Length 13.3 -Post Debridement Size (cm) - Width 3.1 -Post Debridement Size (cm) - Depth 0.6 -Total Square Cm 41.23 -Wound/Ulcer Outcome Not Healed -Ulcer Cleansing Rinsed/ Irrigated with Saline -Foul Odor after Cleansing No -Bioengineered Tissue No -Bleeding Controlled with Pressure -Offloading No -Treatment Response Procedure Tolerated Well #8 r Knee -Time 09:38 -Correct Patient Yes -Correct Side, Site, Position Yes -Correct Procedure Yes -Procedure Performed Yes -Type of Procedure Debridement -Clinical Debridement Subcutaneous -Post Debridement Size (cm) - Length 0.7 -Post Debridement Size (cm) - Width 1.0 -Post Debridement Size (cm) - Depth 0.2 -Total Square Cm 0.70 -Wound/Ulcer Outcome Not Healed -Ulcer Cleansing Rinsed/ Irrigated with Saline -Foul Odor after Cleansing No -Bioengineered Tissue No -Bleeding Controlled with Pressure -Offloading No -Treatment Response Procedure Tolerated Well #6 L Post -Time 08:41 -Correct Patient Yes -Correct Side, Site, Position Yes -Correct Procedure Yes -Procedure Performed Yes -Type of Procedure Debridement -Clinical Debridement Subcutaneous -Post Debridement Size (cm) - Length 21 -Post Debridement Size (cm) - Width 2.6 -Post Debridement Size (cm) - Depth 0.5 -Total Square Cm 54.6 -Wound/Ulcer Outcome Not Healed -Ulcer Cleansing Rinsed/ Irrigated with Saline -Foul Odor after Cleansing No -Bioengineered Tissue No -Bleeding Controlled with Pressure -Offloading No -Treatment Response Procedure Tolerated Well #5 R Lat LE -Time 08:41 -Correct Patient Yes -Correct Side, Site, Position Yes -Correct Procedure Yes -Procedure Performed Yes -Type of Procedure Debridement -Clinical Debridement Subcutaneous -Post Debridement Size (cm) - Length 1.8 -Post Debridement Size (cm) - Width 1.5 -Post Debridement Size (cm) - Depth 0.2 -Total Square Cm 2.70 -Wound/Ulcer Outcome Not Healed -Ulcer Cleansing Rinsed/ Irrigated with Saline -Foul Odor after Cleansing No -Bioengineered Tissue No -Bleeding Controlled with Pressure -Offloading No -Treatment Response Procedure Tolerated Well #4 R post LE -Time 08:41 -Correct Patient Yes -Correct Side, Site, Position Yes -Correct Procedure Yes -Procedure Performed Yes -Type of Procedure Debridement -Clinical Debridement Muscle -Post Debridement Size (cm) - Length 1.8 -Post Debridement Size (cm) - Width 1.5 -Post Debridement Size (cm) - Depth 0.2 -Total Square Cm 2.70 -Wound/Ulcer Outcome Not Healed -Ulcer Cleansing Rinsed/ Irrigated with Saline -Foul Odor after Cleansing No -Bioengineered Tissue No -Bleeding Controlled with Pressure -Offloading No -Treatment Response Procedure Tolerated Well #3 R Med LE -Time 08:42 -Correct Patient Yes -Correct Side, Site, Position Yes -Correct Procedure Yes -Procedure Performed Yes -Type of Procedure Debridement -Clinical Debridement Subcutaneous -Post Debridement Size (cm) - Length 1.8 -Post Debridement Size (cm) - Width 0.5 -Post Debridement Size (cm) - Depth 0.6 -Total Square Cm 0.90 -Wound/Ulcer Outcome Not Healed -Ulcer Cleansing Rinsed/ Irrigated with Saline -Foul Odor after Cleansing No -Bioengineered Tissue No -Bleeding Controlled with Pressure -Offloading No -Treatment Response Procedure Tolerated Well #2 R [place] Cluster -Time 08:42 -Correct Patient Yes -Correct Side, Site, Position Yes -Correct Procedure Yes -Procedure Performed Yes -Type of Procedure Debridement -Clinical Debridement Subcutaneous -Post Debridement Size (cm) - Length 10.5 -Post Debridement Size (cm) - Width 2.6 -Post Debridement Size (cm) - Depth 0.2 -Total Square Cm 27.30 -Wound/Ulcer Outcome Not Healed -Ulcer Cleansing Rinsed/ Irrigated with Saline -Foul Odor after Cleansing No -Bioengineered Tissue No -Bleeding Controlled with Pressure -Offloading No -Treatment Response Procedure Tolerated Well #1 R 2nd toe amp -Time 08:43 -Correct Patient Yes -Correct Side, Site, Position Yes -Correct Procedure Yes -Procedure Performed Yes -Type of Procedure Debridement -Clinical Debridement Subcutaneous -Post Debridement Size (cm) - Length 3 -Post Debridement Size (cm) - Width 0.6 -Post Debridement Size (cm) - Depth 0.7 -Total Square Cm 1.8 -Wound/Ulcer Outcome Not Healed -Ulcer Cleansing Rinsed/ Irrigated with Saline -Foul Odor after Cleansing No -Bioengineered Tissue No -Bleeding Controlled with Pressure -Offloading No -Treatment Response Procedure Tolerated Well [See Physician Procedure note for Specifics] Pain Scale: 0-10 Numeric [Pain] -Is Patient Pain Free? Yes Yes Musculoskeletal: No Tenderness to Palpation of Joints or Extremities, Muscle Wasting Neurological: - - Lack of normal epicritic sensation light touch bilateral lower extremities Psych/Mental Status: Normal Affect, Appropriate Debridement Note Post-Debridement Measurements/Treatment WC - Nurse 2 - General Ulcer CM Notes Start: 11/23/18 08:14 Freq: Status: Active Protocol: Activity Type Activity Date Activity User E-Sign Co-Sign Detail Recorded Client Recorded Date Recorded By Document 11/23/18 09:10 JF [id number] 11/23/18 09:16 JF Document 11/30/18 08:42 JF [id number] 11/30/18 08:46 JF Document 11/30/18 09:18 MW [id number] 11/30/18 09:18 MW Document 12/14/18 08:40 JF [id number] 12/14/18 08:49 JF Document 12/14/18 09:37 MW [id number] 12/14/18 09:39 MW 11/23/18 11/30/18 11/30/18 09:10 08:42 09:18 Wound Center Nurse 2 #11 RIGHT MEDIAL FOOT -Time 09:11 08:42 -Correct Patient Yes Yes -Correct Side, Site, Position Yes Yes -Correct Procedure Yes Yes -Procedure Performed Yes Yes -Type of Procedure Debridement Debridement -Clinical Debridement Subcutaneous Subcutaneous -Post Debridement Size (cm) - Length 13 13.1 -Post Debridement Size (cm) - Width 2.5 2 -Post Debridement Size (cm) - Depth 0.5 0.7 -Total Square Cm 32.5 26.2 -Wound/Ulcer Outcome Not Healed Not Healed -Ulcer Cleansing Rinsed/ Rinsed/ Irrigated with Irrigated with Saline Saline -Foul Odor after Cleansing No No -Bioengineered Tissue No No -Bleeding Controlled with Pressure Pressure -Offloading No No -Treatment Response Procedure Procedure Tolerated Well Tolerated Well #8 r Knee -Time 09:18 -Correct Patient No Yes -Correct Side, Site, Position No Yes -Correct Procedure No Yes -Procedure Performed No Yes -Type of Procedure Debridement -Clinical Debridement Subcutaneous -Post Debridement Size (cm) - Length 0.8 -Post Debridement Size (cm) - Width 1.0 -Post Debridement Size (cm) - Depth 0.2 -Total Square Cm 0.80 -Wound/Ulcer Outcome Not Healed -Ulcer Cleansing Rinsed/ Irrigated with Saline -Foul Odor after Cleansing No -Bioengineered Tissue No -Bleeding Controlled with Pressure -Offloading No -Treatment Response Procedure Tolerated Well #6 L Post -Time 09:12 08:43 -Correct Patient Yes Yes -Correct Side, Site, Position Yes Yes -Correct Procedure Yes Yes -Procedure Performed Yes Yes -Type of Procedure Debridement Debridement -Clinical Debridement Muscle Muscle -Post Debridement Size (cm) - Length 21 21.1 -Post Debridement Size (cm) - Width 2.1 1.7 -Post Debridement Size (cm) - Depth 0.5 0.3 -Total Square Cm 44.1 35.87 -Wound/Ulcer Outcome Not Healed Not Healed -Ulcer Cleansing Rinsed/ Irrigated with Saline -Foul Odor after Cleansing No No -Bioengineered Tissue No No -Bleeding Controlled with Pressure Pressure -Other 20% of tendon debrided. 15% of ulcer debrided. -Offloading No No -Treatment Response Procedure Procedure Tolerated Well Tolerated Well #5 R [facility] LE -Time 09:12 08:43 -Correct Patient Yes Yes -Correct Side, Site, Position Yes Yes -Correct Procedure Yes Yes -Procedure Performed Yes Yes -Type of Procedure Debridement Debridement -Clinical Debridement Subcutaneous Subcutaneous -Post Debridement Size (cm) - Length 2 1.8 -Post Debridement Size (cm) - Width 1.6 1.2 -Post Debridement Size (cm) - Depth 0.2 0.2 -Total Square Cm 3.2 2.16 -Wound/Ulcer Outcome Not Healed Not Healed -Ulcer Cleansing Rinsed/ Rinsed/ Irrigated with Irrigated with Saline Saline -Foul Odor after Cleansing No No -Bioengineered Tissue No No -Bleeding Controlled with Pressure Pressure -Offloading No No -Treatment Response Procedure Procedure Tolerated Well Tolerated Well #4 R post LE -Time 09:12 08:44 -Correct Patient Yes Yes -Correct Side, Site, Position Yes Yes -Correct Procedure Yes Yes -Procedure Performed Yes Yes -Type of Procedure Debridement Debridement -Clinical Debridement Subcutaneous Subcutaneous -Post Debridement Size (cm) - Length 1.4 1.5 -Post Debridement Size (cm) - Width 1.3 1.2 -Post Debridement Size (cm) - Depth 0.1 0.1 -Total Square Cm 1.82 1.80 -Wound/Ulcer Outcome Not Healed Not Healed -Ulcer Cleansing Rinsed/ Rinsed/ Irrigated with Irrigated with Saline Saline -Foul Odor after Cleansing No No -Bioengineered Tissue No No -Bleeding Controlled with Pressure Pressure -Offloading No No -Treatment Response Procedure Procedure Tolerated Well Tolerated Well #3 R [facility] LE -Time 09:13 08:44 -Correct Patient Yes Yes -Correct Side, Site, Position Yes Yes -Correct Procedure Yes Yes -Procedure Performed Yes Yes -Type of Procedure Debridement Debridement -Clinical Debridement Subcutaneous Subcutaneous -Post Debridement Size (cm) - Length 2.5 2.5 -Post Debridement Size (cm) - Width 0.6 0.5 -Post Debridement Size (cm) - Depth 0.3 0.6 -Total Square Cm 1.50 1.25 -Wound/Ulcer Outcome Not Healed Not Healed -Ulcer Cleansing Rinsed/ Rinsed/ Irrigated with Irrigated with Saline Saline -Foul Odor after Cleansing No No -Bioengineered Tissue No No -Bleeding Controlled with Pressure Pressure -Offloading No No -Treatment Response Procedure Procedure Tolerated Well Tolerated Well #2 R [place] Cluster -Time 09:13 08:45 -Correct Patient Yes Yes -Correct Side, Site, Position Yes Yes -Correct Procedure Yes Yes -Procedure Performed Yes Yes -Type of Procedure Debridement Debridement -Clinical Debridement Subcutaneous Subcutaneous -Post Debridement Size (cm) - Length 14.3 9.5 -Post Debridement Size (cm) - Width 2.8 2.9 -Post Debridement Size (cm) - Depth 0.2 0.2 -Total Square Cm 40.04 27.55 -Wound/Ulcer Outcome Not Healed Not Healed -Ulcer Cleansing Rinsed/ Rinsed/ Irrigated with Irrigated with Saline Saline -Foul Odor after Cleansing No No -Bioengineered Tissue No No -Bleeding Controlled with Pressure Pressure -Offloading No -Treatment Response Procedure Tolerated Well #1 R 2nd toe amp -Time 09:14 08:45 -Correct Patient Yes Yes -Correct Side, Site, Position Yes Yes -Correct Procedure Yes Yes -Procedure Performed Yes Yes -Type of Procedure Debridement Debridement -Clinical Debridement Subcutaneous Subcutaneous -Post Debridement Size (cm) - Length 3 2.8 -Post Debridement Size (cm) - Width 0.5 0.6 -Post Debridement Size (cm) - Depth 0.5 0.6 -Total Square Cm 1.5 1.68 -Wound/Ulcer Outcome Not Healed Not Healed -Ulcer Cleansing Rinsed/ Rinsed/ Irrigated with Irrigated with Saline Saline -Foul Odor after Cleansing No No -Bioengineered Tissue No No -Bleeding Controlled with Pressure Pressure -Offloading No No -Treatment Response Procedure Procedure Tolerated Well Tolerated Well Pain Scale: 0-10 Numeric Is Patient Pain Free? Yes Yes 12/14/18 12/14/18 08:40 09:37 Wound Center Nurse 2 #11 RIGHT MEDIAL FOOT -Time 08:40 -Correct Patient Yes -Correct Side, Site, Position Yes -Correct Procedure Yes -Procedure Performed Yes -Type of Procedure Debridement -Clinical Debridement Subcutaneous -Post Debridement Size (cm) - Length 13.3 -Post Debridement Size (cm) - Width 3.1 -Post Debridement Size (cm) - Depth 0.6 -Total Square Cm 41.23 -Wound/Ulcer Outcome Not Healed -Ulcer Cleansing Rinsed/ Irrigated with Saline -Foul Odor after Cleansing No -Bioengineered Tissue No -Bleeding Controlled with Pressure -Offloading No -Treatment Response Procedure Tolerated Well #8 r Knee -Time 09:38 -Correct Patient Yes -Correct Side, Site, Position Yes -Correct Procedure Yes -Procedure Performed Yes -Type of Procedure Debridement -Clinical Debridement Subcutaneous -Post Debridement Size (cm) - Length 0.7 -Post Debridement Size (cm) - Width 1.0 -Post Debridement Size (cm) - Depth 0.2 -Total Square Cm 0.70 -Wound/Ulcer Outcome Not Healed -Ulcer Cleansing Rinsed/ Irrigated with Saline -Foul Odor after Cleansing No -Bioengineered Tissue No -Bleeding Controlled with Pressure -Offloading No -Treatment Response Procedure Tolerated Well #6 L Post -Time 08:41 -Correct Patient Yes -Correct Side, Site, Position Yes -Correct Procedure Yes -Procedure Performed Yes -Type of Procedure Debridement -Clinical Debridement Subcutaneous -Post Debridement Size (cm) - Length 21 -Post Debridement Size (cm) - Width 2.6 -Post Debridement Size (cm) - Depth 0.5 -Total Square Cm 54.6 -Wound/Ulcer Outcome Not Healed -Ulcer Cleansing Rinsed/ Irrigated with Saline -Foul Odor after Cleansing No -Bioengineered Tissue No -Bleeding Controlled with Pressure -Other -Offloading No -Treatment Response Procedure Tolerated Well #5 R Lat LE -Time 08:41 -Correct Patient Yes -Correct Side, Site, Position Yes -Correct Procedure Yes -Procedure Performed Yes -Type of Procedure Debridement -Clinical Debridement Subcutaneous -Post Debridement Size (cm) - Length 1.8 -Post Debridement Size (cm) - Width 1.5 -Post Debridement Size (cm) - Depth 0.2 -Total Square Cm 2.70 -Wound/Ulcer Outcome Not Healed -Ulcer Cleansing Rinsed/ Irrigated with Saline -Foul Odor after Cleansing No -Bioengineered Tissue No -Bleeding Controlled with Pressure -Offloading No -Treatment Response Procedure Tolerated Well #4 R post LE -Time 08:41 -Correct Patient Yes -Correct Side, Site, Position Yes -Correct Procedure Yes -Procedure Performed Yes -Type of Procedure Debridement -Clinical Debridement Muscle -Post Debridement Size (cm) - Length 1.8 -Post Debridement Size (cm) - Width 1.5 -Post Debridement Size (cm) - Depth 0.2 -Total Square Cm 2.70 -Wound/Ulcer Outcome Not Healed -Ulcer Cleansing Rinsed/ Irrigated with Saline -Foul Odor after Cleansing No -Bioengineered Tissue No -Bleeding Controlled with Pressure -Offloading No -Treatment Response Procedure Tolerated Well #3 R Med LE -Time 08:42 -Correct Patient Yes -Correct Side, Site, Position Yes -Correct Procedure Yes -Procedure Performed Yes -Type of Procedure Debridement -Clinical Debridement Subcutaneous -Post Debridement Size (cm) - Length 1.8 -Post Debridement Size (cm) - Width 0.5 -Post Debridement Size (cm) - Depth 0.6 -Total Square Cm 0.90 -Wound/Ulcer Outcome Not Healed -Ulcer Cleansing Rinsed/ Irrigated with Saline -Foul Odor after Cleansing No -Bioengineered Tissue No -Bleeding Controlled with Pressure -Offloading No -Treatment Response Procedure Tolerated Well #2 R [place] Cluster -Time 08:42 -Correct Patient Yes -Correct Side, Site, Position Yes -Correct Procedure Yes -Procedure Performed Yes -Type of Procedure Debridement -Clinical Debridement Subcutaneous -Post Debridement Size (cm) - Length 10.5 -Post Debridement Size (cm) - Width 2.6 -Post Debridement Size (cm) - Depth 0.2 -Total Square Cm 27.30 -Wound/Ulcer Outcome Not Healed -Ulcer Cleansing Rinsed/ Irrigated with Saline -Foul Odor after Cleansing No -Bioengineered Tissue No -Bleeding Controlled with Pressure -Offloading No -Treatment Response Procedure Tolerated Well #1 R 2nd toe amp -Time 08:43 -Correct Patient Yes -Correct Side, Site, Position Yes -Correct Procedure Yes -Procedure Performed Yes -Type of Procedure Debridement -Clinical Debridement Subcutaneous -Post Debridement Size (cm) - Length 3 -Post Debridement Size (cm) - Width 0.6 -Post Debridement Size (cm) - Depth 0.7 -Total Square Cm 1.8 -Wound/Ulcer Outcome Not Healed -Ulcer Cleansing Rinsed/ Irrigated with Saline -Foul Odor after Cleansing No -Bioengineered Tissue No -Bleeding Controlled with Pressure -Offloading No -Treatment Response Procedure Tolerated Well Pain Scale: 0-10 Numeric Is Patient Pain Free? Yes Yes Wound debrided: foot (forefoot) Laterality: Right Wound Grade/Stage: grade 3 Type of Debridement: Excisional debridement Anesthesia Used: 5% Lidocaine Gel Depth: in the subcutaneous layer Percentage of wound debrided: 100 Instrument Used: #15 blade Tissue Removed: fibrous, devitalized subcutaneous, biofilm, slough Severity: Fat Layer Exposed Amount of bleeding with debridement: Mild Bleeding Controlled with: Pressure Patient tolerated procedure well - Additional Wound Wound debrided: medial foot Laterality: Right Wound Grade/Stage: fibrous, devitalized subcutaneous, biofilm, slough Type of Debridement: Excisional debridement Anesthesia Used: 5% Lidocaine Gel Depth: in the subcutaneous layer Percentage of wound debrided: 100 Instrument Used: #15 blade Tissue Removed: fibrous, devitalized subcutaneous, biofilm, slough Severity: Fat Layer Exposed Amount of bleeding with debridement: Mild Bleeding Controlled with: Pressure Patient tolerated procedure: Patient tolerated procedure well - Additional Wound Wound debrided: anterior leg Laterality: Right Wound Grade/Stage: grade 1 Type of Debridement: Excisional debridement Anesthesia Used: 5% Lidocaine Gel Depth: in the subcutaneous layer Percentage of wound debrided: 100 Instrument Used: #15 blade Tissue Removed: fibrous, devitalized subcutaneous, biofilm, slough Severity: Fat Layer Exposed Amount of bleeding with debridement: Mild Bleeding Controlled with: Pressure Patient tolerated procedure: Patient tolerated procedure well - Additional Wound Wound debrided: medial leg Laterality: Right Wound Grade/Stage: grade 1 Type of Debridement: Excisional debridement Anesthesia Used: 5% Lidocaine Gel Depth: in the subcutaneous layer Percentage of wound debrided: 100 Instrument Used: #15 blade Tissue Removed: fibrous, devitalized subcutaneous, biofilm, slough Severity: Fat Layer Exposed Amount of bleeding with debridement: Mild Bleeding Controlled with: Pressure Patient tolerated procedure: Patient tolerated procedure well - Additional Wound Wound debrided: lateral leg Laterality: Right Wound Grade/Stage: grade 1 Type of Debridement: Excisional debridement Anesthesia Used: 5% Lidocaine Gel Depth: in the subcutaneous layer Percentage of wound debrided: 100 Instrument Used: #15 blade Tissue Removed: fibrous, devitalized subcutaneous, biofilm, slough Severity: Fat Layer Exposed Amount of bleeding with debridement: Mild Bleeding Controlled with: Pressure Patient tolerated procedure: Patient tolerated procedure well - Additional Wound Wound debrided: posterior leg Laterality: Right Wound Grade/Stage: grade 2 Type of Debridement: Excisional debridement Anesthesia Used: 5% Lidocaine Gel Depth: in the subcutaneous layer Percentage of wound debrided: 100 Instrument Used: #15 blade Tissue Removed: fibrous, devitalized subcutaneous, biofilm, slough Severity: Fat Layer Exposed Amount of bleeding with debridement: Mild Bleeding Controlled with: Pressure Patient tolerated procedure: Patient tolerated procedure well - Additional Wound Wound debrided: leg Laterality: Left Wound Grade/Stage: grade 3 Type of Debridement: Excisional debridement Depth: in the subcutaneous layer - exposed tendon is also noted Percentage of wound debrided: 100 Instrument Used: #15 blade Tissue Removed: fibrous, devitalized subcutaneous, biofilm, slough Severity: Fat Layer Exposed Amount of bleeding with debridement: Mild Bleeding Controlled with: Pressure Patient tolerated procedure: Patient tolerated procedure well Assessment/Plan Active Problems (Last Updated 09/28/18 @ 12:41 by Geraldine Steele) Ulcer of right foot with fat layer exposed (Chronic) 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) Delayed wound healing (Chronic) Vasculitis (Chronic) Tobacco dependence due to cigarettes (Chronic) Ulcer of right lower extremity with fat layer exposed (Chronic) Ulcer of left lower extremity with fat layer exposed (Chronic) 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) Type 2 diabetes mellitus with diabetic polyneuropathy (Chronic) Malnutrition (Chronic) Assessment: Open second and third ray resection secondary to 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 Diabetic neuropathy. Malnutrition suspected. 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 Delayed healing. Gait impairment and fall risk. Other comorbidities, right knee ulcer, tendon exposed (Dr. Gilbert managed). Plan: I reviewed and discussed his case with the patient and the patient's . Subcutaneous debridements were performed as noted in the clinical panel and tendon debridement to the posterior right leg only. I Recommended changing the dressings daily home nursing staff assistance with santyl to right knee (per Dr. Gilbert), and aquacel ag to the leg ulcers, santyl to devitalized tendon zones (left posterior proximal leg ulcer site). I do not appreciate any local signs of infection at this time. There is no purulence on expression, redness, or swelling to the site. To monitor closely and call immediately if this returns. The ulcer sites have improved quality with granulation tissue. He has completed a 6 weeks of IV antibiotic of Unasyn. I recommend he avoids laying directly on his wounds to reduce pressure, and I was concerned about his perfusion to his limbs. He had an arterial Doppler scheduled with Dr. Morgan's staff on August 02, 2018 and overall perfusion was confirmed; additional intervention or workup was not recommended. It is also noted that he did have venous Doppler performed with reflux evaluation. He did not have evidence of deep venous thrombosis or venous insufficiency at that time; the vessels were co mpressible. To continue with nutritional supplementation optimize healing; I recommend Juan. I recommend he sustained from smoking and alcohol activities to optimize healing as well. His workup for vasculitis and underlying autoimmune disorder is also pending. A punch biopsy was sent during his last surgical intervention on June 10 and this demonstrated inflammatory changes without malignancy. He had initial screening labs and so far he has a negative RA titer, HL of the 27, KEVIN, anti-CCP, and rheumatoid factor. Several his antibody screenings were not reportable. Hyperbaric oxygen therapy was recommended and it is noted his ejection fraction was most recently 50%. He refuses at this time. Dr. Gilbert continues to manage his bilateral knee ulcers including debridements and traditional wound care plan. He refuses surgical intervention at this time to bilateral lower extremities. I answered all of his questions. Additional amputation of the right foot is not planned due to his fairly nonambulatory status. Smoking cessation was discussed in detail again today and compliance is imperative to optimize healing of surgical success. He reports he is cutting back. I recommend further follow-up at the wound care center 1 week with me, or call sooner if he has any questions. Compliance at this advanced wound care center was reviewed. He understands additional palliative care programs are an option if he does not wish to proceed with advanced wound care opportunities that has been recommended. 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 There is anticipated insurance coverage for application of advanced wound care product, amniofill, and the operating room setting. This was discussed in detail with him today and he will think about it again. He refuses to move forward with these treatment options. He would like to go on a more palliative plan where he comes in for only debridements once or twice a month. He understands this will delay or prevent ulcer healing.
--- NOTE | 2018-12-14 11:55 | PN.PCM_ITS ---
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 Arguello is a 63-year-old male with multiple comorbidities follows up for delayed healing ulcers to the right foot as well as bilateral legs. It is noted he previously had widespread debridements and fasciotomies performed to bilateral lower extremities secondary to life-threatening and limb threatening infection; this was previously performed at [facility]. He continues to follow with Dr. Gilbert for her knee ulcers, and I saw him today for his other ulcer site of the right knee. He denies chills, fever or otherwise feeling of unwell. He presents today with his . He still refuses advanced wound care product application. He refuses hyperbaric oxygen therapy treatment. He sent his wound VAC back as advised because he is completed this treatment course. He denies any known injury, redness or odor. His is applied Santyl to any necrotic tissue was advised to the left calf area. He has decreased smoking. Progress of Wound: Stable - Physical Exam Vital Signs Temp Pulse Resp BP 96.6 F L 94 18 130/80 H 12/14/18 08:05 12/14/18 08:05 12/14/18 08:05 12/14/18 08:05 General: Alert, Oriented x3, Cooperative, No apparent distress HEENT: Atraumatic Oral: Moist Mucosa Neck: Supple Lungs: Normal air movement Extremities: No cyanosis, Edema Skin: Ulcer/ Wound Wound Measurements and Assessment WC - Nurse 1 - General Ulcer Measurement Start: 11/23/18 08:14 Freq: Status: Active Protocol: Activity Type Activity Date Activity User E-Sign Co-Sign Detail Recorded Client Recorded Date Recorded By Document 12/14/18 08:05 DL [id number] 12/14/18 08:22 DL 12/14/18 08:05 Wound Center Nurse 1 [Ulcer Assessment] #11 RIGHT MEDIAL FOOT -Combined with other wound No -Current Size (cm) - Length 13.3 -Current Size (cm) - Width 3 -Current Size (cm) - Depth 0.6 -Total Square Cm 39.9 -Photo Taken No -Epithelialization None Present -Tunneling No -Undermining/Tunneling No -Circular Undermining No -Exudate Amt Medium -Exudate Type Serosanguineous -Wound Margin Distinct, Outline Attached -Granulation Amt Small (1-33%) -Granulation Quality [place] -Slough/Fibrin Yes -Necrosis Amt None Present (0 %) -Necrotic Tissue Type Adherent Slough -Structure Exposed None/Limited to Skin Breakdown -Texture (Lisa-wound Skin Appearance) No Abnormality Assessed -Moisture (Lisa-wound Skin Appearance Dry/Scaly ) -Color (Lisa-wound Skin Appearance) No Abnormality Assessed -Temperature (Lisa-wound Skin No Abnormality Appearance) (Pt Warm) -Tenderness on Palpation (Lisa-wound No Skin Appearance) -Ulcer Cleansing Wound Cleanser -Foul Odor after Cleansing No -Anesthetic Used 4% Lidocaine Solution #8 r Knee -Combined with other wound No -Current Size (cm) - Length 0.6 -Current Size (cm) - Width 1 -Current Size (cm) - Depth 0.3 -Total Square Cm 0.6 -Photo Taken No -Epithelialization None Present -Tunneling No -Undermining/Tunneling Yes -Undermining/Tunneling Starts (O' 7 clock) -Undermining/Tunneling Ends (O'clock) 2 -Maximum Distance (cm) 0.2 -Circular Undermining No -Exudate Amt Medium -Exudate Type Serosanguineous -Granulation Amt Small (1-33%) -Granulation Quality [place] -Slough/Fibrin No -Necrosis Amt Large (67-100%) -Necrotic Tissue Type Adherent Slough -Structure Exposed None/Limited to Skin Breakdown -Texture (Lisa-wound Skin Appearance) No Abnormality Assessed -Moisture (Lisa-wound Skin Appearance No Abnormality ) Assessed -Temperature (Lisa-wound Skin No Abnormality Appearance) (Pt Warm) -Tenderness on Palpation (Lisa-wound Yes Skin Appearance) -Ulcer Cleansing Rinsed/ Irrigated with Saline -Foul Odor after Cleansing No -Anesthetic Used 4% Lidocaine Solution #6 L Post -Combined with other wound No -Current Size (cm) - Length 21 -Current Size (cm) - Width 2.5 -Current Size (cm) - Depth 0.5 -Total Square Cm 52.5 -Photo Taken No -Epithelialization None Present -Tunneling No -Undermining/Tunneling No -Circular Undermining No -Exudate Amt Medium -Exudate Type Serosanguineous -Wound Margin Distinct, Outline Attached -Granulation Amt None Present (0 %) -Granulation Quality N/A -Slough/Fibrin Yes -Necrosis Amt Large (67-100%) -Necrotic Tissue Type Adherent Slough -Structure Exposed Fascia -Texture (Lisa-wound Skin Appearance) No Abnormality Assessed -Moisture (Lisa-wound Skin Appearance Assessed ) Dry/Scaly -Color (Lisa-wound Skin Appearance) No Abnormality Assessed -Temperature (Lisa-wound Skin No Abnormality Appearance) (Pt Warm) -Tenderness on Palpation (Lisa-wound Yes Skin Appearance) -Ulcer Cleansing Wound Cleanser -Foul Odor after Cleansing No -Anesthetic Used 4% Lidocaine Solution #5 R Lat LE -Combined with other wound No -Current Size (cm) - Length 1.7 -Current Size (cm) - Width 1.5 -Current Size (cm) - Depth 0.2 -Total Square Cm 2.55 -Photo Taken No -Epithelialization None Present -Tunneling No -Undermining/Tunneling No -Wound Margin Thickened -Granulation Amt None Present (0 %) -Granulation Quality N/A -Slough/Fibrin Yes -Necrosis Amt Large (67-100%) -Necrotic Tissue Type Adherent Slough -Structure Exposed None/Limited to Skin Breakdown -Texture (Lisa-wound Skin Appearance) No Abnormality Assessed -Moisture (Lisa-wound Skin Appearance No Abnormality ) Assessed -Color (Lisa-wound Skin Appearance) No Abnormality Assessed -Temperature (Lisa-wound Skin No Abnormality Appearance) (Pt Warm) -Tenderness on Palpation (Lisa-wound No Skin Appearance) -Ulcer Cleansing Wound Cleanser -Foul Odor after Cleansing No -Anesthetic Used 4% Lidocaine Solution #4 R post LE -Combined with other wound No -Current Size (cm) - Length 1.8 -Current Size (cm) - Width 1.4 -Current Size (cm) - Depth 0.2 -Total Square Cm 2.52 -Photo Taken No -Epithelialization None Present -Tunneling No -Undermining/Tunneling No -Circular Undermining No -Exudate Amt Small -Wound Margin Thickened & Rolled Under -Granulation Amt None Present (0 %) -Granulation Quality N/A -Slough/Fibrin Yes -Necrosis Amt Large (67-100%) -Necrotic Tissue Type Adherent Slough -Texture (Lisa-wound Skin Appearance) No Abnormality Assessed -Moisture (Lisa-wound Skin Appearance No Abnormality ) Assessed -Color (Lisa-wound Skin Appearance) No Abnormality Assessed -Temperature (Lisa-wound Skin No Abnormality Appearance) (Pt Warm) -Tenderness on Palpation (Lisa-wound Yes Skin Appearance) -Ulcer Cleansing Wound Cleanser -Foul Odor after Cleansing No -Anesthetic Used 4% Lidocaine Solution #3 R Med LE -Combined with other wound No -Current Size (cm) - Length 1.7 -Current Size (cm) - Width 0.5 -Current Size (cm) - Depth 0.6 -Total Square Cm 0.85 -Photo Taken No -Epithelialization None Present -Tunneling No -Undermining/Tunneling No -Circular Undermining Yes -Wound Margin Thickened & Rolled Under -Granulation Amt None Present (0 %) -Granulation Quality N/A -Slough/Fibrin Yes -Necrosis Amt Large (67-100%) -Necrotic Tissue Type Adherent Slough -Structure Exposed None/Limited to Skin Breakdown -Texture (Lisa-wound Skin Appearance) No Abnormality Assessed -Moisture (Lisa-wound Skin Appearance No Abnormality ) Assessed -Color (Lisa-wound Skin Appearance) No Abnormality Assessed #2 R [place] Cluster -Combined with other wound No -Current Size (cm) - Length 10.4 -Current Size (cm) - Width 2.6 -Current Size (cm) - Depth 0.2 -Total Square Cm 27.04 -Photo Taken No -Epithelialization None Present -Tunneling No -Undermining/Tunneling No -Circular Undermining No -Wound Margin Thickened & Rolled Under -Granulation Amt None Present (0 %) -Granulation Quality N/A -Slough/Fibrin Yes -Necrosis Amt None Present (0 %) -Necrotic Tissue Type Adherent Slough -Structure Exposed None/Limited to Skin Breakdown -Texture (Lisa-wound Skin Appearance) No Abnormality Assessed -Moisture (Lisa-wound Skin Appearance No Abnormality ) Assessed -Color (Lisa-wound Skin Appearance) No Abnormality Assessed -Temperature (Lisa-wound Skin No Abnormality Appearance) (Pt Warm) -Tenderness on Palpation (Lisa-wound No Skin Appearance) -Ulcer Cleansing Wound Cleanser -Foul Odor after Cleansing No -Anesthetic Used 4% Lidocaine Solution #1 R 2nd toe amp -Combined with other wound No -Current Size (cm) - Length 3 -Current Size (cm) - Width 0.5 -Current Size (cm) - Depth 0.7 -Total Square Cm 1.5 -Photo Taken No -Epithelialization None Present -Tunneling No -Undermining/Tunneling No -Circular Undermining No -Exudate Amt Small -Exudate Type Serosanguineous -Wound Margin Thickened -Granulation Amt Medium (34-66%) -Granulation Quality [place] -Slough/Fibrin Yes -Necrosis Amt None Present (0 %) -Necrotic Tissue Type Adherent Slough -Structure Exposed None/Limited to Skin Breakdown -Texture (Lisa-wound Skin Appearance) No Abnormality Assessed -Moisture (Lisa-wound Skin Appearance No Abnormality ) Assessed -Color (Lisa-wound Skin Appearance) No Abnormality Assessed -Temperature (Lisa-wound Skin No Abnormality Appearance) (Pt Warm) -Tenderness on Palpation (Lisa-wound No Skin Appearance) -Ulcer Cleansing Wound Cleanser -Foul Odor after Cleansing No -Anesthetic Used 4% Lidocaine Solution [Edema Assessment] -Lower Limb Edema Present NA WC - Nurse 2 - General Ulcer CM Notes Start: 11/23/18 08:14 Freq: Status: Active Protocol: Activity Type Activity Date Activity User E-Sign Co-Sign Detail Recorded Client Recorded Date Recorded By Document 12/14/18 08:40 JF [id number] 12/14/18 08:49 JF Document 12/14/18 09:37 MW [id number] 12/14/18 09:39 MW 12/14/18 12/14/18 08:40 09:37 Wound Center Nurse 2 [Procedure/Treatment] #11 RIGHT MEDIAL FOOT -Time 08:40 -Correct Patient Yes -Correct Side, Site, Position Yes -Correct Procedure Yes -Procedure Performed Yes -Type of Procedure Debridement -Clinical Debridement Subcutaneous -Post Debridement Size (cm) - Length 13.3 -Post Debridement Size (cm) - Width 3.1 -Post Debridement Size (cm) - Depth 0.6 -Total Square Cm 41.23 -Wound/Ulcer Outcome Not Healed -Ulcer Cleansing Rinsed/ Irrigated with Saline -Foul Odor after Cleansing No -Bioengineered Tissue No -Bleeding Controlled with Pressure -Offloading No -Treatment Response Procedure Tolerated Well #8 r Knee -Time 09:38 -Correct Patient Yes -Correct Side, Site, Position Yes -Correct Procedure Yes -Procedure Performed Yes -Type of Procedure Debridement -Clinical Debridement Subcutaneous -Post Debridement Size (cm) - Length 0.7 -Post Debridement Size (cm) - Width 1.0 -Post Debridement Size (cm) - Depth 0.2 -Total Square Cm 0.70 -Wound/Ulcer Outcome Not Healed -Ulcer Cleansing Rinsed/ Irrigated with Saline -Foul Odor after Cleansing No -Bioengineered Tissue No -Bleeding Controlled with Pressure -Offloading No -Treatment Response Procedure Tolerated Well #6 L Post -Time 08:41 -Correct Patient Yes -Correct Side, Site, Position Yes -Correct Procedure Yes -Procedure Performed Yes -Type of Procedure Debridement -Clinical Debridement Subcutaneous -Post Debridement Size (cm) - Length 21 -Post Debridement Size (cm) - Width 2.6 -Post Debridement Size (cm) - Depth 0.5 -Total Square Cm 54.6 -Wound/Ulcer Outcome Not Healed -Ulcer Cleansing Rinsed/ Irrigated with Saline -Foul Odor after Cleansing No -Bioengineered Tissue No -Bleeding Controlled with Pressure -Offloading No -Treatment Response Procedure Tolerated Well #5 R Lat LE -Time 08:41 -Correct Patient Yes -Correct Side, Site, Position Yes -Correct Procedure Yes -Procedure Performed Yes -Type of Procedure Debridement -Clinical Debridement Subcutaneous -Post Debridement Size (cm) - Length 1.8 -Post Debridement Size (cm) - Width 1.5 -Post Debridement Size (cm) - Depth 0.2 -Total Square Cm 2.70 -Wound/Ulcer Outcome Not Healed -Ulcer Cleansing Rinsed/ Irrigated with Saline -Foul Odor after Cleansing No -Bioengineered Tissue No -Bleeding Controlled with Pressure -Offloading No -Treatment Response Procedure Tolerated Well #4 R post LE -Time 08:41 -Correct Patient Yes -Correct Side, Site, Position Yes -Correct Procedure Yes -Procedure Performed Yes -Type of Procedure Debridement -Clinical Debridement Muscle -Post Debridement Size (cm) - Length 1.8 -Post Debridement Size (cm) - Width 1.5 -Post Debridement Size (cm) - Depth 0.2 -Total Square Cm 2.70 -Wound/Ulcer Outcome Not Healed -Ulcer Cleansing Rinsed/ Irrigated with Saline -Foul Odor after Cleansing No -Bioengineered Tissue No -Bleeding Controlled with Pressure -Offloading No -Treatment Response Procedure Tolerated Well #3 R Med LE -Time 08:42 -Correct Patient Yes -Correct Side, Site, Position Yes -Correct Procedure Yes -Procedure Performed Yes -Type of Procedure Debridement -Clinical Debridement Subcutaneous -Post Debridement Size (cm) - Length 1.8 -Post Debridement Size (cm) - Width 0.5 -Post Debridement Size (cm) - Depth 0.6 -Total Square Cm 0.90 -Wound/Ulcer Outcome Not Healed -Ulcer Cleansing Rinsed/ Irrigated with Saline -Foul Odor after Cleansing No -Bioengineered Tissue No -Bleeding Controlled with Pressure -Offloading No -Treatment Response Procedure Tolerated Well #2 R [place] Cluster -Time 08:42 -Correct Patient Yes -Correct Side, Site, Position Yes -Correct Procedure Yes -Procedure Performed Yes -Type of Procedure Debridement -Clinical Debridement Subcutaneous -Post Debridement Size (cm) - Length 10.5 -Post Debridement Size (cm) - Width 2.6 -Post Debridement Size (cm) - Depth 0.2 -Total Square Cm 27.30 -Wound/Ulcer Outcome Not Healed -Ulcer Cleansing Rinsed/ Irrigated with Saline -Foul Odor after Cleansing No -Bioengineered Tissue No -Bleeding Controlled with Pressure -Offloading No -Treatment Response Procedure Tolerated Well #1 R 2nd toe amp -Time 08:43 -Correct Patient Yes -Correct Side, Site, Position Yes -Correct Procedure Yes -Procedure Performed Yes -Type of Procedure Debridement -Clinical Debridement Subcutaneous -Post Debridement Size (cm) - Length 3 -Post Debridement Size (cm) - Width 0.6 -Post Debridement Size (cm) - Depth 0.7 -Total Square Cm 1.8 -Wound/Ulcer Outcome Not Healed -Ulcer Cleansing Rinsed/ Irrigated with Saline -Foul Odor after Cleansing No -Bioengineered Tissue No -Bleeding Controlled with Pressure -Offloading No -Treatment Response Procedure Tolerated Well [See Physician Procedure note for Specifics] Pain Scale: 0-10 Numeric [Pain] -Is Patient Pain Free? Yes Yes Musculoskeletal: No Muscle Wasting Neurological: Cranial nerves II-XII grossly intact Psych/Mental Status: Normal Affect Debridement Note Post-Debridement Measurements/Treatment WC - Nurse 2 - General Ulcer CM Notes Start: 11/23/18 08:14 Freq: Status: Active Protocol: Activity Type Activity Date Activity User E-Sign Co-Sign Detail Recorded Client Recorded Date Recorded By Document 11/23/18 09:10 JF [id number] 11/23/18 09:16 JF Document 11/30/18 08:42 JF [id number] 11/30/18 08:46 JF Document 11/30/18 09:18 MW [id number] 11/30/18 09:18 MW Document 12/14/18 08:40 JF [id number] 12/14/18 08:49 JF Document 12/14/18 09:37 MW [id number] 12/14/18 09:39 MW 11/23/18 11/30/18 11/30/18 09:10 08:42 09:18 Wound Center Nurse 2 #11 RIGHT MEDIAL FOOT -Time 09:11 08:42 -Correct Patient Yes Yes -Correct Side, Site, Position Yes Yes -Correct Procedure Yes Yes -Procedure Performed Yes Yes -Type of Procedure Debridement Debridement -Clinical Debridement Subcutaneous Subcutaneous -Post Debridement Size (cm) - Length 13 13.1 -Post Debridement Size (cm) - Width 2.5 2 -Post Debridement Size (cm) - Depth 0.5 0.7 -Total Square Cm 32.5 26.2 -Wound/Ulcer Outcome Not Healed Not Healed -Ulcer Cleansing Rinsed/ Rinsed/ Irrigated with Irrigated with Saline Saline -Foul Odor after Cleansing No No -Bioengineered Tissue No No -Bleeding Controlled with Pressure Pressure -Offloading No No -Treatment Response Procedure Procedure Tolerated Well Tolerated Well #8 r Knee -Time 09:18 -Correct Patient No Yes -Correct Side, Site, Position No Yes -Correct Procedure No Yes -Procedure Performed No Yes -Type of Procedure Debridement -Clinical Debridement Subcutaneous -Post Debridement Size (cm) - Length 0.8 -Post Debridement Size (cm) - Width 1.0 -Post Debridement Size (cm) - Depth 0.2 -Total Square Cm 0.80 -Wound/Ulcer Outcome Not Healed -Ulcer Cleansing Rinsed/ Irrigated with Saline -Foul Odor after Cleansing No -Bioengineered Tissue No -Bleeding Controlled with Pressure -Offloading No -Treatment Response Procedure Tolerated Well #6 L Post -Time 09:12 08:43 -Correct Patient Yes Yes -Correct Side, Site, Position Yes Yes -Correct Procedure Yes Yes -Procedure Performed Yes Yes -Type of Procedure Debridement Debridement -Clinical Debridement Muscle Muscle -Post Debridement Size (cm) - Length 21 21.1 -Post Debridement Size (cm) - Width 2.1 1.7 -Post Debridement Size (cm) - Depth 0.5 0.3 -Total Square Cm 44.1 35.87 -Wound/Ulcer Outcome Not Healed Not Healed -Ulcer Cleansing Rinsed/ Irrigated with Saline -Foul Odor after Cleansing No No -Bioengineered Tissue No No -Bleeding Controlled with Pressure Pressure -Other 20% of tendon debrided. 15% of ulcer debrided. -Offloading No No -Treatment Response Procedure Procedure Tolerated Well Tolerated Well #5 R Lat LE -Time 09:12 08:43 -Correct Patient Yes Yes -Correct Side, Site, Position Yes Yes -Correct Procedure Yes Yes -Procedure Performed Yes Yes -Type of Procedure Debridement Debridement -Clinical Debridement Subcutaneous Subcutaneous -Post Debridement Size (cm) - Length 2 1.8 -Post Debridement Size (cm) - Width 1.6 1.2 -Post Debridement Size (cm) - Depth 0.2 0.2 -Total Square Cm 3.2 2.16 -Wound/Ulcer Outcome Not Healed Not Healed -Ulcer Cleansing Rinsed/ Rinsed/ Irrigated with Irrigated with Saline Saline -Foul Odor after Cleansing No No -Bioengineered Tissue No No -Bleeding Controlled with Pressure Pressure -Offloading No No -Treatment Response Procedure Procedure Tolerated Well Tolerated Well #4 R post LE -Time 09:12 08:44 -Correct Patient Yes Yes -Correct Side, Site, Position Yes Yes -Correct Procedure Yes Yes -Procedure Performed Yes Yes -Type of Procedure Debridement Debridement -Clinical Debridement Subcutaneous Subcutaneous -Post Debridement Size (cm) - Length 1.4 1.5 -Post Debridement Size (cm) - Width 1.3 1.2 -Post Debridement Size (cm) - Depth 0.1 0.1 -Total Square Cm 1.82 1.80 -Wound/Ulcer Outcome Not Healed Not Healed -Ulcer Cleansing Rinsed/ Rinsed/ Irrigated with Irrigated with Saline Saline -Foul Odor after Cleansing No No -Bioengineered Tissue No No -Bleeding Controlled with Pressure Pressure -Offloading No No -Treatment Response Procedure Procedure Tolerated Well Tolerated Well #3 R Med LE -Time 09:13 08:44 -Correct Patient Yes Yes -Correct Side, Site, Position Yes Yes -Correct Procedure Yes Yes -Procedure Performed Yes Yes -Type of Procedure Debridement Debridement -Clinical Debridement Subcutaneous Subcutaneous -Post Debridement Size (cm) - Length 2.5 2.5 -Post Debridement Size (cm) - Width 0.6 0.5 -Post Debridement Size (cm) - Depth 0.3 0.6 -Total Square Cm 1.50 1.25 -Wound/Ulcer Outcome Not Healed Not Healed -Ulcer Cleansing Rinsed/ Rinsed/ Irrigated with Irrigated with Saline Saline -Foul Odor after Cleansing No No -Bioengineered Tissue No No -Bleeding Controlled with Pressure Pressure -Offloading No No -Treatment Response Procedure Procedure Tolerated Well Tolerated Well #2 R [place] Cluster -Time 09:13 08:45 -Correct Patient Yes Yes -Correct Side, Site, Position Yes Yes -Correct Procedure Yes Yes -Procedure Performed Yes Yes -Type of Procedure Debridement Debridement -Clinical Debridement Subcutaneous Subcutaneous -Post Debridement Size (cm) - Length 14.3 9.5 -Post Debridement Size (cm) - Width 2.8 2.9 -Post Debridement Size (cm) - Depth 0.2 0.2 -Total Square Cm 40.04 27.55 -Wound/Ulcer Outcome Not Healed Not Healed -Ulcer Cleansing Rinsed/ Rinsed/ Irrigated with Irrigated with Saline Saline -Foul Odor after Cleansing No No -Bioengineered Tissue No No -Bleeding Controlled with Pressure Pressure -Offloading No -Treatment Response Procedure Tolerated Well #1 R 2nd toe amp -Time 09:14 08:45 -Correct Patient Yes Yes -Correct Side, Site, Position Yes Yes -Correct Procedure Yes Yes -Procedure Performed Yes Yes -Type of Procedure Debridement Debridement -Clinical Debridement Subcutaneous Subcutaneous -Post Debridement Size (cm) - Length 3 2.8 -Post Debridement Size (cm) - Width 0.5 0.6 -Post Debridement Size (cm) - Depth 0.5 0.6 -Total Square Cm 1.5 1.68 -Wound/Ulcer Outcome Not Healed Not Healed -Ulcer Cleansing Rinsed/ Rinsed/ Irrigated with Irrigated with Saline Saline -Foul Odor after Cleansing No No -Bioengineered Tissue No No -Bleeding Controlled with Pressure Pressure -Offloading No No -Treatment Response Procedure Procedure Tolerated Well Tolerated Well Pain Scale: 0-10 Numeric Is Patient Pain Free? Yes Yes 12/14/18 12/14/18 08:40 09:37 Wound Center Nurse 2 #11 RIGHT MEDIAL FOOT -Time 08:40 -Correct Patient Yes -Correct Side, Site, Position Yes -Correct Procedure Yes -Procedure Performed Yes -Type of Procedure Debridement -Clinical Debridement Subcutaneous -Post Debridement Size (cm) - Length 13.3 -Post Debridement Size (cm) - Width 3.1 -Post Debridement Size (cm) - Depth 0.6 -Total Square Cm 41.23 -Wound/Ulcer Outcome Not Healed -Ulcer Cleansing Rinsed/ Irrigated with Saline -Foul Odor after Cleansing No -Bioengineered Tissue No -Bleeding Controlled with Pressure -Offloading No -Treatment Response Procedure Tolerated Well #8 r Knee -Time 09:38 -Correct Patient Yes -Correct Side, Site, Position Yes -Correct Procedure Yes -Procedure Performed Yes -Type of Procedure Debridement -Clinical Debridement Subcutaneous -Post Debridement Size (cm) - Length 0.7 -Post Debridement Size (cm) - Width 1.0 -Post Debridement Size (cm) - Depth 0.2 -Total Square Cm 0.70 -Wound/Ulcer Outcome Not Healed -Ulcer Cleansing Rinsed/ Irrigated with Saline -Foul Odor after Cleansing No -Bioengineered Tissue No -Bleeding Controlled with Pressure -Offloading No -Treatment Response Procedure Tolerated Well #6 L Post -Time 08:41 -Correct Patient Yes -Correct Side, Site, Position Yes -Correct Procedure Yes -Procedure Performed Yes -Type of Procedure Debridement -Clinical Debridement Subcutaneous -Post Debridement Size (cm) - Length 21 -Post Debridement Size (cm) - Width 2.6 -Post Debridement Size (cm) - Depth 0.5 -Total Square Cm 54.6 -Wound/Ulcer Outcome Not Healed -Ulcer Cleansing Rinsed/ Irrigated with Saline -Foul Odor after Cleansing No -Bioengineered Tissue No -Bleeding Controlled with Pressure -Other -Offloading No -Treatment Response Procedure Tolerated Well #5 R Lat LE -Time 08:41 -Correct Patient Yes -Correct Side, Site, Position Yes -Correct Procedure Yes -Procedure Performed Yes -Type of Procedure Debridement -Clinical Debridement Subcutaneous -Post Debridement Size (cm) - Length 1.8 -Post Debridement Size (cm) - Width 1.5 -Post Debridement Size (cm) - Depth 0.2 -Total Square Cm 2.70 -Wound/Ulcer Outcome Not Healed -Ulcer Cleansing Rinsed/ Irrigated with Saline -Foul Odor after Cleansing No -Bioengineered Tissue No -Bleeding Controlled with Pressure -Offloading No -Treatment Response Procedure Tolerated Well #4 R post LE -Time 08:41 -Correct Patient Yes -Correct Side, Site, Position Yes -Correct Procedure Yes -Procedure Performed Yes -Type of Procedure Debridement -Clinical Debridement Muscle -Post Debridement Size (cm) - Length 1.8 -Post Debridement Size (cm) - Width 1.5 -Post Debridement Size (cm) - Depth 0.2 -Total Square Cm 2.70 -Wound/Ulcer Outcome Not Healed -Ulcer Cleansing Rinsed/ Irrigated with Saline -Foul Odor after Cleansing No -Bioengineered Tissue No -Bleeding Controlled with Pressure -Offloading No -Treatment Response Procedure Tolerated Well #3 R Med LE -Time 08:42 -Correct Patient Yes -Correct Side, Site, Position Yes -Correct Procedure Yes -Procedure Performed Yes -Type of Procedure Debridement -Clinical Debridement Subcutaneous -Post Debridement Size (cm) - Length 1.8 -Post Debridement Size (cm) - Width 0.5 -Post Debridement Size (cm) - Depth 0.6 -Total Square Cm 0.90 -Wound/Ulcer Outcome Not Healed -Ulcer Cleansing Rinsed/ Irrigated with Saline -Foul Odor after Cleansing No -Bioengineered Tissue No -Bleeding Controlled with Pressure -Offloading No -Treatment Response Procedure Tolerated Well #2 R [place] Cluster -Time 08:42 -Correct Patient Yes -Correct Side, Site, Position Yes -Correct Procedure Yes -Procedure Performed Yes -Type of Procedure Debridement -Clinical Debridement Subcutaneous -Post Debridement Size (cm) - Length 10.5 -Post Debridement Size (cm) - Width 2.6 -Post Debridement Size (cm) - Depth 0.2 -Total Square Cm 27.30 -Wound/Ulcer Outcome Not Healed -Ulcer Cleansing Rinsed/ Irrigated with Saline -Foul Odor after Cleansing No -Bioengineered Tissue No -Bleeding Controlled with Pressure -Offloading No -Treatment Response Procedure Tolerated Well #1 R 2nd toe amp -Time 08:43 -Correct Patient Yes -Correct Side, Site, Position Yes -Correct Procedure Yes -Procedure Performed Yes -Type of Procedure Debridement -Clinical Debridement Subcutaneous -Post Debridement Size (cm) - Length 3 -Post Debridement Size (cm) - Width 0.6 -Post Debridement Size (cm) - Depth 0.7 -Total Square Cm 1.8 -Wound/Ulcer Outcome Not Healed -Ulcer Cleansing Rinsed/ Irrigated with Saline -Foul Odor after Cleansing No -Bioengineered Tissue No -Bleeding Controlled with Pressure -Offloading No -Treatment Response Procedure Tolerated Well Pain Scale: 0-10 Numeric Is Patient Pain Free? Yes Yes Wound debrided: Right knee Wound Grade/Stage: Stage III Type of Debridement: Excisional debridement Anesthesia Used: 4% Lidocaine Solution Depth: Down to and including healthy tissue, in the subcutaneous layer Percentage of wound debrided: 100 Instrument Used: 3mm curette Tissue Removed: Slough and devitalized tissue Severity: Fat Layer Exposed Amount of bleeding with debridement: Mild Bleeding Controlled with: Pressure Patient tolerated procedure well Assessment/Plan Active Problems (Last Updated 09/28/18 @ 12:41 by Geraldine Steele) Ulcer of right foot with fat layer exposed (Chronic) 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) Delayed wound healing (Chronic) Vasculitis (Chronic) Tobacco dependence due to cigarettes (Chronic) Ulcer of right lower extremity with fat layer exposed (Chronic) Ulcer of left lower extremity with fat layer exposed (Chronic) 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) Type 2 diabetes mellitus with diabetic polyneuropathy (Chronic) Malnutrition (Chronic) Assessment: Open second and third ray resection secondary to 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 Diabetic neuropathy. Malnutrition suspected. 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 Delayed healing. Gait impairment and fall risk. Other comorbidities, right knee ulcer, tendon exposed (Dr. Gilbert managed). Plan: Slowly improving right knee. No new concerns at this time. Debridement done as documented above. Procedure was well-tolerated. Continue Promogran with Adaptic over top. Change every third day. Elevate lower extremities when seated in bed. Patient would like to switch to conservative wound care management and will be seen here every 2 weeks. Continue other wound care management per Dr. Gruber. He was advised to call with any questions or concerns. This note was generated with [employer] software. It may contain incorrect words, spelling, and punctuation that were not noted in checking the note before signing.
== END 2018-12-22 23:59 ==
LOC: WC 08:00
PROVIDERS: Family Provider Family Medicine; PCP Family Medicine; Visit Provider Podiatrist
DX: E11.621 Type 2 diabetes mellitus with foot ulcer (principal); E11.51 Type 2 diabetes mellitus with diabetic peripheral angiopathy without gangrene; E11.42 Type 2 diabetes mellitus with diabetic polyneuropathy; E11.622 Type 2 diabetes mellitus with other skin ulcer; L97.823 Non-pressure chronic ulcer of other part of left lower leg with necrosis of muscle; L97.812 Non-pressure chronic ulcer of other part of right lower leg with fat layer exposed; L97.512 Non-pressure chronic ulcer of other part of right foot with fat layer exposed; L97.412 Non-pressure chronic ulcer of right heel and midfoot with fat layer exposed; R60.0 Localized edema; F17.210 Nicotine dependence, cigarettes, uncomplicated
CPT/HCPCS: 11042; 11043; 11045; 99212; G0463

== ENCOUNTER 2019-01-18 08:00 | Outpatient (RCR) | payer OTHER, MEDICARE, SELFPAY ==
[2018-12-23 01:11] VITALS: BP 130/80; PULSE 94; RESP 18; TEMP 35.9
[2018-12-28 08:08] VITALS: BP 144/78; PULSE 109; RESP 18; TEMP 36.2
--- NOTE | 2018-12-28 09:06 | PN.PCM_ITS ---
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 Current Visit: Yes Code(s): L97.913 - Non-pressure chronic ulcer of unspecified part of right lower leg with necrosis of muscle (4) Delayed wound healing Status: Chronic Current Visit: Yes Code(s): T14.8XXD - Other injury of unspecified body region, subsequent encounter (5) 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 Current Visit: Yes Code(s): L97.923 - Non-pressure chronic ulcer of unspecified part of left lower leg with necrosis of muscle (6) PVD (peripheral vascular disease) Status: Suspected Current Visit: Yes Code(s): I73.9 - Peripheral vascular disease, unspecified (7) Type 2 diabetes mellitus with diabetic polyneuropathy Status: Chronic Current Visit: Yes Code(s): E11.42 - Type 2 diabetes mellitus with diabetic polyneuropathy (8) Localized edema Status: Chronic Current Visit: Yes Code(s): R60.0 - Localized edema (9) Malnutrition Status: Chronic Current Visit: Yes Code(s): E46 - Unspecified protein- calorie malnutrition Type of Wound Chief Complaint: right and left Leg ulcers and right foot ulcer History of Wound: Mr. Arguello is a 63-year-old male with multiple comorbidities follows up for delayed healing ulcers to the right foot as well as bilateral leg s. It is noted he previously had widespread debridements and fasciotomies performed to bilateral lower extremities secondary to life-threatening and limb threatening infection; this was previously performed at [facility], [place]. He continues to follow with Dr. Gilbert for his right knee ulcer. He denies chills, fever or otherwise feeling of unwell. He presents today with his . He still refuses advanced wound care product application. He refuses hyperbaric oxygen therapy treatment. He elects to proceed with a palliative care plan because he is refusing the other treatment recommendations. Progress of Wound: Stable - Physical Exam Vital Signs Temp Pulse Resp BP 97.2 F L 109 H 18 144/78 H 12/28/18 08:08 12/28/18 08:08 12/28/18 08:08 12/28/18 08:08 General: Alert, Oriented x3, Cooperative Extremities: No cyanosis, Capillary Refill Less than 3 Seconds, No Calf Tenderness - Negative Errol and [place] bilateral, Diminished Peripheral Pulses, Edema - Mild bilateral Skin: Ulcer/ Wound - . His skin is hairless and atrophic. There is no necrotic tendon or eschar noted today. No purulence, erythema, streaking, odor, or acute infection or maceration bilateral Wound Measurements and Assessment WC - Nurse 1 - General Ulcer Measurement Start: 12/28/18 08:08 Freq: Status: Active Protocol: Activity Type Activity Date Activity User E-Sign Co-Sign Detail Recorded Client Recorded Date Recorded By Document 12/28/18 08:08 RB [id number] 12/28/18 08:34 RB 12/28/18 08:08 Wound Center Nurse 1 [Ulcer Assessment] #11 RIGHT MEDIAL FOOT -Combined with other wound No -Current Size (cm) - Length 14.3 -Current Size (cm) - Width 2.5 -Current Size (cm) - Depth 0.6 -Total Square Cm 35.75 -Photo Taken No -Tunneling No -Undermining/Tunneling No -Circular Undermining No -Exudate Amt Small -Exudate Type Serosanguineous -Wound Margin Thickened & Rolled Under -Granulation Amt Small (1-33%) -Granulation Quality Red -Slough/Fibrin Yes -Necrosis Amt Large (67-100%) -Necrotic Tissue Type Adherent Slough -Structure Exposed N/A -Texture (Lisa-wound Skin Appearance) Assessed -Moisture (Lisa-wound Skin Appearance Dry/Scaly ) -Color (Lisa-wound Skin Appearance) Assessed -Temperature (Lisa-wound Skin No Abnormality Appearance) (Pt Warm) -Tenderness on Palpation (Lisa-wound No Skin Appearance) -Ulcer Cleansing Wound Cleanser -Foul Odor after Cleansing No -Anesthetic Used 4% Lidocaine Solution #8 r Knee -Combined with other wound No -Current Size (cm) - Length 1 -Current Size (cm) - Width 1 -Current Size (cm) - Depth 0.3 -Total Square Cm 1 -Photo Taken No -Tunneling No -Undermining/Tunneling Yes -Undermining/Tunneling Starts (O' 12 clock) -Undermining/Tunneling Ends (O'clock) 12 -Maximum Distance (cm) 0.6 -Circular Undermining Yes -Exudate Amt Small -Exudate Type Serosanguineous -Wound Margin Thickened & Rolled Under -Slough/Fibrin Yes -Necrosis Amt Large (67-100%) -Necrotic Tissue Type Adherent Slough -Structure Exposed N/A -Texture (Lisa-wound Skin Appearance) Assessed -Moisture (Lisa-wound Skin Appearance Assessed ) -Color (Lisa-wound Skin Appearance) Assessed -Temperature (Lisa-wound Skin No Abnormality Appearance) (Pt Warm) -Tenderness on Palpation (Lisa-wound No Skin Appearance) -Ulcer Cleansing Wound Cleanser -Foul Odor after Cleansing No -Anesthetic Used 4% Lidocaine Solution 5% Lidocaine Gel #6 L Post -Combined with other wound No -Current Size (cm) - Length 21.5 -Current Size (cm) - Width 1.5 -Current Size (cm) - Depth 0.3 -Total Square Cm 32.25 -Photo Taken No -Tunneling No -Undermining/Tunneling No -Circular Undermining No -Exudate Amt Small -Exudate Type Serosanguineous -Wound Margin Distinct, Outline Attached -Granulation Amt Small (1-33%) -Granulation Quality [place] -Slough/Fibrin Yes -Necrosis Amt Large (67-100%) -Necrotic Tissue Type Adherent Slough -Structure Exposed N/A -Texture (Lisa-wound Skin Appearance) Assessed -Moisture (Lisa-wound Skin Appearance Assessed ) -Color (Lisa-wound Skin Appearance) Assessed -Temperature (Lisa-wound Skin No Abnormality Appearance) (Pt Warm) -Tenderness on Palpation (Lisa-wound No Skin Appearance) -Ulcer Cleansing Wound Cleanser -Foul Odor after Cleansing No -Anesthetic Used 4% Lidocaine Solution #5 R Lat LE -Combined with other wound No -Current Size (cm) - Length 2 -Current Size (cm) - Width 1.3 -Current Size (cm) - Depth 0.1 -Total Square Cm 2.6 -Photo Taken No -Tunneling No -Undermining/Tunneling No -Circular Undermining No -Exudate Amt Small -Exudate Type Serosanguineous -Wound Margin Distinct, Outline Attached -Granulation Amt Medium (34-66%) -Granulation Quality [place] -Slough/Fibrin Yes -Necrosis Amt Medium (34-66%) -Necrotic Tissue Type Adherent Slough -Structure Exposed N/A -Texture (Lisa-wound Skin Appearance) Assessed -Moisture (Lisa-wound Skin Appearance Dry/Scaly ) -Color (Lisa-wound Skin Appearance) Assessed -Temperature (Lisa-wound Skin No Abnormality Appearance) (Pt Warm) -Tenderness on Palpation (Lisa-wound No Skin Appearance) -Ulcer Cleansing Wound Cleanser -Foul Odor after Cleansing No -Anesthetic Used 4% Lidocaine Solution #4 R post LE -Combined with other wound No -Current Size (cm) - Length 2 -Current Size (cm) - Width 1.7 -Current Size (cm) - Depth 0.3 -Total Square Cm 3.4 -Photo Taken No -Tunneling No -Undermining/Tunneling Yes -Undermining/Tunneling Starts (O' 11 clock) -Undermining/Tunneling Ends (O'clock) 2 -Maximum Distance (cm) 1.1 -Exudate Amt Small -Exudate Type Serosanguineous -Wound Margin Distinct, Outline Attached -Granulation Amt None Present (0 %) -Slough/Fibrin Yes -Necrosis Amt Large (67-100%) -Necrotic Tissue Type Adherent Slough -Structure Exposed N/A -Texture (Lisa-wound Skin Appearance) Assessed -Moisture (Lisa-wound Skin Appearance Dry/Scaly ) -Color (Lisa-wound Skin Appearance) Assessed -Temperature (Lisa-wound Skin No Abnormality Appearance) (Pt Warm) -Tenderness on Palpation (Lisa-wound No Skin Appearance) -Ulcer Cleansing Wound Cleanser -Foul Odor after Cleansing No -Anesthetic Used 4% Lidocaine Solution #3 R Med LE -Combined with other wound No -Current Size (cm) - Length 1.6 -Current Size (cm) - Width 0.4 -Current Size (cm) - Depth 0.4 -Total Square Cm 0.64 -Photo Taken No -Tunneling No -Undermining/Tunneling No -Circular Undermining No -Change in Wound Grade/Stage No Query Text:If change please identify the Stage/Grade in the comment (ie. S2 G3) -Exudate Amt Small -Exudate Type Serosanguineous -Wound Margin Distinct, Outline Attached -Granulation Amt None Present (0 %) -Slough/Fibrin Yes -Necrosis Amt Large (67-100%) -Necrotic Tissue Type Adherent Slough -Structure Exposed N/A -Texture (Lisa-wound Skin Appearance) Assessed -Moisture (Lisa-wound Skin Appearance Dry/Scaly ) -Color (Lisa-wound Skin Appearance) Assessed -Temperature (Lisa-wound Skin No Abnormality Appearance) (Pt Warm) -Tenderness on Palpation (Lisa-wound No Skin Appearance) -Ulcer Cleansing Wound Cleanser -Foul Odor after Cleansing No -Anesthetic Used 4% Lidocaine Solution #2 R [place] Cluster -Combined with other wound No -Current Size (cm) - Length 10 -Current Size (cm) - Width 3 -Current Size (cm) - Depth 0.2 -Total Square Cm 30 -Tunneling No -Undermining/Tunneling No -Circular Undermining No -Exudate Amt Small -Exudate Type Serosanguineous -Wound Margin Distinct, Outline Attached -Granulation Amt Medium (34-66%) -Granulation Quality [place] -Slough/Fibrin Yes -Necrosis Amt Medium (34-66%) -Necrotic Tissue Type Adherent Slough -Structure Exposed N/A -Texture (Lisa-wound Skin Appearance) Assessed -Moisture (Lisa-wound Skin Appearance Assessed ) -Color (Lisa-wound Skin Appearance) Assessed -Temperature (Lisa-wound Skin No Abnormality Appearance) (Pt Warm) -Tenderness on Palpation (Lisa-wound No Skin Appearance) -Ulcer Cleansing Wound Cleanser -Foul Odor after Cleansing No -Anesthetic Used 4% Lidocaine Solution #1 R 2nd toe amp -Combined with other wound No -Current Size (cm) - Length 3.1 -Current Size (cm) - Width 1 -Current Size (cm) - Depth 0.1 -Total Square Cm 3.1 -Tunneling No -Undermining/Tunneling No -Circular Undermining No -Exudate Amt Small -Exudate Type Serosanguineous -Wound Margin Distinct, Outline Attached -Granulation Amt Medium (34-66%) -Granulation Quality [place] -Slough/Fibrin Yes -Necrosis Amt Medium (34-66%) -Necrotic Tissue Type Adherent Slough -Structure Exposed N/A -Texture (Lisa-wound Skin Appearance) Assessed -Moisture (Lisa-wound Skin Appearance Assessed ) Dry/Scaly -Color (Lisa-wound Skin Appearance) Assessed -Temperature (Lisa-wound Skin No Abnormality Appearance) (Pt Warm) -Tenderness on Palpation (Lisa-wound No Skin Appearance) -Ulcer Cleansing Wound Cleanser -Foul Odor after Cleansing No -Anesthetic Used 4% Lidocaine Solution [Edema Assessment] -Lower Limb Edema Present Yes -Right Calf (cm) 34.8 -Right Ankle (cm) 21.5 -Left Calf (cm) 33.5 -Left Ankle (cm) 21 WC - Nurse 2 - General Ulcer CM Notes Start: 12/28/18 08:08 Freq: Status: Active Protocol: Activity Type Activity Date Activity User E-Sign Co-Sign Detail Recorded Client Recorded Date Recorded By Document 12/28/18 08:42 JAMAL [id number] 12/28/18 08:47 JAMAL 12/28/18 08:42 Wound Center Nurse 2 [Procedure/Treatment] #11 RIGHT MEDIAL FOOT -Time 08:43 -Correct Patient Yes -Correct Side, Site, Position Yes -Correct Procedure Yes -Procedure Performed Yes -Type of Procedure Debridement -Clinical Debridement Subcutaneous -Post Debridement Size (cm) - Length 14.4 -Post Debridement Size (cm) - Width 2.5 -Post Debridement Size (cm) - Depth 0.6 -Total Square Cm 36.00 -Wound/Ulcer Outcome Not Healed -Ulcer Cleansing Rinsed/ Irrigated with Saline -Foul Odor after Cleansing No -Bioengineered Tissue No -Bleeding Controlled with Pressure -Offloading No -Treatment Response Procedure Tolerated Well #8 r Knee -Correct Patient No -Correct Side, Site, Position No -Correct Procedure No -Procedure Performed No #6 L Post -Time 08:44 -Correct Patient Yes -Correct Side, Site, Position Yes -Correct Procedure Yes -Procedure Performed Yes -Type of Procedure Debridement -Clinical Debridement Subcutaneous -Post Debridement Size (cm) - Length 21.5 -Post Debridement Size (cm) - Width 1.6 -Post Debridement Size (cm) - Depth 0.3 -Total Square Cm 34.40 -Wound/Ulcer Outcome Not Healed -Ulcer Cleansing Rinsed/ Irrigated with Saline -Foul Odor after Cleansing No -Bioengineered Tissue No -Bleeding Controlled with Pressure -Offloading No -Treatment Response Procedure Tolerated Well #5 R Lat LE -Time 08:44 -Correct Patient Yes -Correct Side, Site, Position Yes -Correct Procedure Yes -Procedure Performed Yes -Type of Procedure Debridement -Clinical Debridement Subcutaneous -Post Debridement Size (cm) - Length 2.1 -Post Debridement Size (cm) - Width 1.3 -Post Debridement Size (cm) - Depth 0.1 -Total Square Cm 2.73 -Wound/Ulcer Outcome Not Healed -Ulcer Cleansing Rinsed/ Irrigated with Saline -Foul Odor after Cleansing No -Bioengineered Tissue No -Bleeding Controlled with Pressure -Offloading No -Treatment Response Procedure Tolerated Well #4 R post LE -Time 08:44 -Correct Patient Yes -Correct Side, Site, Position Yes -Correct Procedure Yes -Procedure Performed Yes -Type of Procedure Debridement -Clinical Debridement Subcutaneous -Post Debridement Size (cm) - Length 2.1 -Post Debridement Size (cm) - Width 1.8 -Post Debridement Size (cm) - Depth 0.3 -Total Square Cm 3.78 -Wound/Ulcer Outcome Not Healed -Ulcer Cleansing Rinsed/ Irrigated with Saline -Foul Odor after Cleansing No -Bioengineered Tissue No -Bleeding Controlled with Pressure -Offloading No -Treatment Response Procedure Tolerated Well #3 R Med LE -Time 08:45 -Correct Patient Yes -Correct Side, Site, Position Yes -Correct Procedure Yes -Procedure Performed Yes -Type of Procedure Debridement -Clinical Debridement Subcutaneous -Post Debridement Size (cm) - Length 1.6 -Post Debridement Size (cm) - Width 0.5 -Post Debridement Size (cm) - Depth 0.4 -Total Square Cm 0.80 -Wound/Ulcer Outcome Not Healed -Ulcer Cleansing Rinsed/ Irrigated with Saline -Foul Odor after Cleansing No -Bioengineered Tissue No -Bleeding Controlled with Pressure -Offloading No -Treatment Response Procedure Tolerated Well #2 R [place] Cluster -Time 08:45 -Correct Patient Yes -Correct Side, Site, Position Yes -Correct Procedure Yes -Procedure Performed Yes -Type of Procedure Debridement -Clinical Debridement Subcutaneous -Post Debridement Size (cm) - Length 10 -Post Debridement Size (cm) - Width 3.1 -Post Debridement Size (cm) - Depth 0.2 -Total Square Cm 31.0 -Wound/Ulcer Outcome Not Healed -Ulcer Cleansing Rinsed/ Irrigated with Saline -Foul Odor after Cleansing No -Bioengineered Tissue No -Bleeding Controlled with Pressure -Offloading No -Treatment Response Procedure Tolerated Well #1 R 2nd toe amp -Time 08:45 -Correct Patient Yes -Correct Side, Site, Position Yes -Correct Procedure Yes -Procedure Performed Yes -Type of Procedure Debridement -Clinical Debridement Subcutaneous -Post Debridement Size (cm) - Length 3.2 -Post Debridement Size (cm) - Width 1 -Post Debridement Size (cm) - Depth 0.1 -Total Square Cm 3.2 -Wound/Ulcer Outcome Not Healed -Ulcer Cleansing Rinsed/ Irrigated with Saline -Foul Odor after Cleansing No -Bioengineered Tissue No -Bleeding Controlled with Pressure -Offloading No -Treatment Response Procedure Tolerated Well [See Physician Procedure note for Specifics] Pain Scale: 0-10 Numeric [Pain] -Is Patient Pain Free? Yes Musculoskeletal: No Tenderness to Palpation of Joints or Extremities, Muscle Wasting, Tenderness - Mild Neurological: - - Lack of normal epicritic sensation light touch bilateral lower extremities at the ulcer sites Psych/Mental Status: Normal Affect, Appropriate Debridement Note Post-Debridement Measurements/Treatment WC - Nurse 2 - General Ulcer CM Notes Start: 12/28/18 08:08 Freq: Status: Active Protocol: Activity Type Activity Date Activity User E-Sign Co-Sign Detail Recorded Client Recorded Date Recorded By Document 12/28/18 08:42 JAMAL [id number] 12/28/18 08:47 JAMAL 12/28/18 08:42 Wound Center Nurse 2 #11 RIGHT MEDIAL FOOT -Time 08:43 -Correct Patient Yes -Correct Side, Site, Position Yes -Correct Procedure Yes -Procedure Performed Yes -Type of Procedure Debridement -Clinical Debridement Subcutaneous -Post Debridement Size (cm) - Length 14.4 -Post Debridement Size (cm) - Width 2.5 -Post Debridement Size (cm) - Depth 0.6 -Total Square Cm 36.00 -Wound/Ulcer Outcome Not Healed -Ulcer Cleansing Rinsed/ Irrigated with Saline -Foul Odor after Cleansing No -Bioengineered Tissue No -Bleeding Controlled with Pressure -Offloading No -Treatment Response Procedure Tolerated Well #8 r Knee -Correct Patient No -Correct Side, Site, Position No -Correct Procedure No -Procedure Performed No #6 L Post -Time 08:44 -Correct Patient Yes -Correct Side, Site, Position Yes -Correct Procedure Yes -Procedure Performed Yes -Type of Procedure Debridement -Clinical Debridement Subcutaneous -Post Debridement Size (cm) - Length 21.5 -Post Debridement Size (cm) - Width 1.6 -Post Debridement Size (cm) - Depth 0.3 -Total Square Cm 34.40 -Wound/Ulcer Outcome Not Healed -Ulcer Cleansing Rinsed/ Irrigated with Saline -Foul Odor after Cleansing No -Bioengineered Tissue No -Bleeding Controlled with Pressure -Offloading No -Treatment Response Procedure Tolerated Well #5 R Lat LE -Time 08:44 -Correct Patient Yes -Correct Side, Site, Position Yes -Correct Procedure Yes -Procedure Performed Yes -Type of Procedure Debridement -Clinical Debridement Subcutaneous -Post Debridement Size (cm) - Length 2.1 -Post Debridement Size (cm) - Width 1.3 -Post Debridement Size (cm) - Depth 0.1 -Total Square Cm 2.73 -Wound/Ulcer Outcome Not Healed -Ulcer Cleansing Rinsed/ Irrigated with Saline -Foul Odor after Cleansing No -Bioengineered Tissue No -Bleeding Controlled with Pressure -Offloading No -Treatment Response Procedure Tolerated Well #4 R post LE -Time 08:44 -Correct Patient Yes -Correct Side, Site, Position Yes -Correct Procedure Yes -Procedure Performed Yes -Type of Procedure Debridement -Clinical Debridement Subcutaneous -Post Debridement Size (cm) - Length 2.1 -Post Debridement Size (cm) - Width 1.8 -Post Debridement Size (cm) - Depth 0.3 -Total Square Cm 3.78 -Wound/Ulcer Outcome Not Healed -Ulcer Cleansing Rinsed/ Irrigated with Saline -Foul Odor after Cleansing No -Bioengineered Tissue No -Bleeding Controlled with Pressure -Offloading No -Treatment Response Procedure Tolerated Well #3 R Med LE -Time 08:45 -Correct Patient Yes -Correct Side, Site, Position Yes -Correct Procedure Yes -Procedure Performed Yes -Type of Procedure Debridement -Clinical Debridement Subcutaneous -Post Debridement Size (cm) - Length 1.6 -Post Debridement Size (cm) - Width 0.5 -Post Debridement Size (cm) - Depth 0.4 -Total Square Cm 0.80 -Wound/Ulcer Outcome Not Healed -Ulcer Cleansing Rinsed/ Irrigated with Saline -Foul Odor after Cleansing No -Bioengineered Tissue No -Bleeding Controlled with Pressure -Offloading No -Treatment Response Procedure Tolerated Well #2 R [place] Cluster -Time 08:45 -Correct Patient Yes -Correct Side, Site, Position Yes -Correct Procedure Yes -Procedure Performed Yes -Type of Procedure Debridement -Clinical Debridement Subcutaneous -Post Debridement Size (cm) - Length 10 -Post Debridement Size (cm) - Width 3.1 -Post Debridement Size (cm) - Depth 0.2 -Total Square Cm 31.0 -Wound/Ulcer Outcome Not Healed -Ulcer Cleansing Rinsed/ Irrigated with Saline -Foul Odor after Cleansing No -Bioengineered Tissue No -Bleeding Controlled with Pressure -Offloading No -Treatment Response Procedure Tolerated Well #1 R 2nd toe amp -Time 08:45 -Correct Patient Yes -Correct Side, Site, Position Yes -Correct Procedure Yes -Procedure Performed Yes -Type of Procedure Debridement -Clinical Debridement Subcutaneous -Post Debridement Size (cm) - Length 3.2 -Post Debridement Size (cm) - Width 1 -Post Debridement Size (cm) - Depth 0.1 -Total Square Cm 3.2 -Wound/Ulcer Outcome Not Healed -Ulcer Cleansing Rinsed/ Irrigated with Saline -Foul Odor after Cleansing No -Bioengineered Tissue No -Bleeding Controlled with Pressure -Offloading No -Treatment Response Procedure Tolerated Well Pain Scale: 0-10 Numeric Is Patient Pain Free? Yes Wound debrided: anterior leg Laterality: Right Wound Grade/Stage: grade 1 Type of Debridement: Excisional debridement Anesthesia Used: 5% Lidocaine Gel Depth: in the subcutaneous layer Percentage of wound debrided: 100 Instrument Used: #15 blade Tissue Removed: fibrous, devitalized subcutaneous, biofilm, slough Severity: Fat Layer Exposed Amount of bleeding with debridement: Mild Bleeding Controlled with: Pressure Patient tolerated procedure well - Additional Wound Wound debrided: medial leg Laterality: Right Wound Grade/Stage: grade 2 Type of Debridement: Excisional debridement Anesthesia Used: 5% Lidocaine Gel Depth: in the subcutaneous layer Percentage of wound debrided: 100 Instrument Used: #15 blade Tissue Removed: fibrous, devitalized subcutaneous, biofilm, slough Severity: Fat Layer Exposed Amount of bleeding with debridement: Mild Bleeding Controlled with: Pressure Patient tolerated procedure: Patient tolerated procedure well - Additional Wound Wound debrided: lateral leg Laterality: Right Wound Grade/Stage: grade 1 Type of Debridement: Excisional debridement Anesthesia Used: 5% Lidocaine Gel Depth: in the subcutaneous layer Percentage of wound debrided: 100 Instrument Used: #15 blade Tissue Removed: fibrous, devitalized subcutaneous, biofilm, slough Severity: Fat Layer Exposed Amount of bleeding with debridement: Mild Bleeding Controlled with: Pressure Patient tolerated procedure: Patient tolerated procedure well - Additional Wound Wound debrided: posterior leg Laterality: Right Wound Grade/Stage: grade 1 Type of Debridement: Excisional debridement Anesthesia Used: 5% Lidocaine Gel Depth: in the subcutaneous layer Percentage of wound debrided: 100 Instrument Used: #15 blade Tissue Removed: fibrous, devitalized subcutaneous, biofilm, slough Severity: Fat Layer Exposed Amount of bleeding with debridement: Mild Bleeding Controlled with: Pressure Patient tolerated procedure: Patient tolerated procedure well - Additional Wound Wound debrided: forefoot Laterality: Right Wound Grade/Stage: grade 3 Type of Debridement: Excisional debridement Anesthesia Used: 5% Lidocaine Gel Depth: in the subcutaneous layer Percentage of wound debrided: 100 Instrument Used: #15 blade Tissue Removed: fibrous, devitalized subcutaneous, biofilm, slough Severity: Fat Layer Exposed Amount of bleeding with debridement: Mild Bleeding Controlled with: Pressure Patient tolerated procedure: Patient tolerated procedure well - Additional Wound Wound debrided: medial rearfoot Laterality: Right Wound Grade/Stage: grade 3 Type of Debridement: Excisional debridement Anesthesia Used: 5% Lidocaine Gel Depth: in the subcutaneous layer Percentage of wound debrided: 100 Instrument Used: #15 blade Tissue Removed: fibrous, devitalized subcutaneous, biofilm, slough Severity: Fat Layer Exposed Amount of bleeding with debridement: Mild Bleeding Controlled with: Pressure Patient tolerated procedure: Patient tolerated procedure well - Additional Wound Wound debrided: posterior leg Laterality: Left Wound Grade/Stage: grade 2 Type of Debridement: Excisional debridement Anesthesia Used: 5% Lidocaine Gel Depth: in the subcutaneous layer Percentage of wound debrided: 100 Instrument Used: #15 blade Tissue Removed: fibrous, devitalized subcutaneous, biofilm, slough Severity: Fat Layer Exposed Amount of bleeding with debridement: Mild Bleeding Controlled with: Pressure Patient tolerated procedure: Patient tolerated procedure well Assessment/Plan Active Problems (Last Updated 09/28/18 @ 12:41 by Geraldine Steele) Ulcer of right foot with fat layer exposed (Chronic) 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) Ulcer of right lower extremity with fat layer exposed (Chronic) Skin ulcer of right knee with fat layer exposed (Chronic) Delayed wound healing (Chronic) 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 Diabetic neuropathy. Malnutrition suspected. 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 Delayed healing. Gait impairment and fall risk. Other comorbidities, right knee ulcer Plan: I reviewed and discussed his case with the patient and the patient's . Subcutaneous debridements were performed as noted in the clinical panel. I Recommended changing the dressings daily home nursing staff assistance with aquacel ag to the leg and foot ulcers. I do not appreciate any local signs of infection at this time. There is no purulence on expression, redness, or swelling to the site. To monitor closely and call immediately if this returns. The ulcer sites have improved quality with granulation tissue. He has completed a 6 weeks of IV antibiotic of Unasyn. I recommend he avoids laying directly on his wounds to reduce pressure, and I was concerned about his perfusion to his limbs. He had an arterial Doppler scheduled with Dr. Morgan's staff on August 02, 2018 and overall perfusion was confirmed; additional intervention or workup was not recommended. It is also noted that he did have venous Doppler performed with reflux evaluation. He did not have evidence of deep venous thrombosis or venous insufficiency at that time; the vessels were compressible. To continue with nutritional supplementation optimize healing; I recommend Juan. I recommend he sustained from smoking and alcohol activities to optimize healing as well. His workup for vasculitis and underlying autoimmune disorder is also pending. A punch biopsy was sent during his last surgical intervention on June 10 and this demonstrated inflammatory changes without malignancy. He had initial screening labs and so far he has a negative RA titer, HL of the 27, KEVIN, anti-CCP, and rheumatoid factor. Several his antibody screenings were not reportable. Hyperbaric oxygen therapy was recommended and it is noted his ejection fraction was most recently 50%. He refuses at this time. Dr. Gilbert continues to manage his right knee ulcer including debridements and traditional wound care plan. He refuses surgical intervention at this time to bilateral lower extremities. I answered all of his questions. Additional amputation of the right foot is not planned due to his fairly nonambulatory status. Smoking cessation was discussed in detail again today and compliance is imperative to optimize healing of surgical success. He reports he is cutting back. I recommend further follow-up at the wound care center 1 week with me, or call sooner if he has any questions. Compliance at this advanced wound care center was reviewed. He understands additional palliative care programs are an option if he does not wish to proceed with advanced wound care opportunities that has been recommended. 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
--- NOTE | 2018-12-28 11:07 | PN.PCM_ITS ---
(1) Skin ulcer of right knee with fat layer exposed Status: Chronic Current Visit: Yes Code(s): L97.812 - Non-pressure chronic ulcer of other part of right lower leg with fat layer exposed (2) DM2 (diabetes mellitus, type 2) Status: Chronic Current Visit: Yes Code(s): E11.9 - Type 2 diabetes mellitus without complications Type of Wound Chief Complaint: right and left Leg ulcers and right foot ulcer History of Wound: Mr. Arguello is a 63-year-old male with multiple comorbidities follows up for delayed healing ulcers to the right foot as well as bilateral legs. It is noted he previously had widespread debridements and fasciotomies performed to bilateral lower extremities secondary to life-threatening and limb threatening infection; this was previously performed at [facility]. He continues to follow with Dr. Gilbert for her knee ulcers, and I saw him today for his other ulcer site of the right knee. He denies chills, fever or otherwise feeling of unwell. He presents today with his . He still refuses advanced wound care product application. He refuses hyperbaric oxygen therapy treatment. He sent his wound VAC back as advised because he is completed this treatment course. He denies any known injury, redness or odor. His is applied Santyl to any necrotic tissue was advised to the left calf area. He has decreased smoking. Progress of Wound: Stable. No concerns at this time - Physical Exam Vital Signs Temp Pulse Resp BP 97.2 F L 109 H 18 144/78 H 12/28/18 08:08 12/28/18 08:08 12/28/18 08:08 12/28/18 08:08 General: Alert, Oriented x3, Cooperative, No apparent distress HEENT: Atraumatic, Normocephalic Oral: Moist Mucosa Neck: Supple Lungs: Normal air movement Abdomen: Non Tender Extremities: No cyanosis Skin: Ulcer/ Wound Wound Measurements and Assessment WC - Nurse 1 - General Ulcer Measurement Start: 12/28/18 08:08 Freq: Status: Active Protocol: Activity Type Activity Date Activity User E-Sign Co-Sign Detail Recorded Client Recorded Date Recorded By Document 12/28/18 08:08 RB [id number] 12/28/18 08:34 RB 12/28/18 08:08 Wound Center Nurse 1 [Ulcer Assessment] #11 RIGHT MEDIAL FOOT -Combined with other wound No -Current Size (cm) - Length 14.3 -Current Size (cm) - Width 2.5 -Current Size (cm) - Depth 0.6 -Total Square Cm 35.75 -Photo Taken No -Tunneling No -Undermining/Tunneling No -Circular Undermining No -Exudate Amt Small -Exudate Type Serosanguineous -Wound Margin Thickened & Rolled Under -Granulation Amt Small (1-33%) -Granulation Quality Red -Slough/Fibrin Yes -Necrosis Amt Large (67-100%) -Necrotic Tissue Type Adherent Slough -Structure Exposed N/A -Texture (Lisa-wound Skin Appearance) Assessed -Moisture (Lisa-wound Skin Appearance Dry/Scaly ) -Color (Lisa-wound Skin Appearance) Assessed -Temperature (Lisa-wound Skin No Abnormality Appearance) (Pt Warm) -Tenderness on Palpation (Lisa-wound No Skin Appearance) -Ulcer Cleansing Wound Cleanser -Foul Odor after Cleansing No -Anesthetic Used 4% Lidocaine Solution #8 r Knee -Combined with other wound No -Current Size (cm) - Length 1 -Current Size (cm) - Width 1 -Current Size (cm) - Depth 0.3 -Total Square Cm 1 -Photo Taken No -Tunneling No -Undermining/Tunneling Yes -Undermining/Tunneling Starts (O' 12 clock) -Undermining/Tunneling Ends (O'clock) 12 -Maximum Distance (cm) 0.6 -Circular Undermining Yes -Exudate Amt Small -Exudate Type Serosanguineous -Wound Margin Thickened & Rolled Under -Slough/Fibrin Yes -Necrosis Amt Large (67-100%) -Necrotic Tissue Type Adherent Slough -Structure Exposed N/A -Texture (Lisa-wound Skin Appearance) Assessed -Moisture (Lisa-wound Skin Appearance Assessed ) -Color (Lisa-wound Skin Appearance) Assessed -Temperature (Lisa-wound Skin No Abnormality Appearance) (Pt Warm) -Tenderness on Palpation (Lisa-wound No Skin Appearance) -Ulcer Cleansing Wound Cleanser -Foul Odor after Cleansing No -Anesthetic Used 4% Lidocaine Solution 5% Lidocaine Gel #6 L Post -Combined with other wound No -Current Size (cm) - Length 21.5 -Current Size (cm) - Width 1.5 -Current Size (cm) - Depth 0.3 -Total Square Cm 32.25 -Photo Taken No -Tunneling No -Undermining/Tunneling No -Circular Undermining No -Exudate Amt Small -Exudate Type Serosanguineous -Wound Margin Distinct, Outline Attached -Granulation Amt Small (1-33%) -Granulation Quality [place] -Slough/Fibrin Yes -Necrosis Amt Large (67-100%) -Necrotic Tissue Type Adherent Slough -Structure Exposed N/A -Texture (Lisa-wound Skin Appearance) Assessed -Moisture (Lisa-wound Skin Appearance Assessed ) -Color (Lisa-wound Skin Appearance) Assessed -Temperature (Lisa-wound Skin No Abnormality Appearance) (Pt Warm) -Tenderness on Palpation (Lisa-wound No Skin Appearance) -Ulcer Cleansing Wound Cleanser -Foul Odor after Cleansing No -Anesthetic Used 4% Lidocaine Solution #5 R Lat LE -Combined with other wound No -Current Size (cm) - Length 2 -Current Size (cm) - Width 1.3 -Current Size (cm) - Depth 0.1 -Total Square Cm 2.6 -Photo Taken No -Tunneling No -Undermining/Tunneling No -Circular Undermining No -Exudate Amt Small -Exudate Type Serosanguineous -Wound Margin Distinct, Outline Attached -Granulation Amt Medium (34-66%) -Granulation Quality [place] -Slough/Fibrin Yes -Necrosis Amt Medium (34-66%) -Necrotic Tissue Type Adherent Slough -Structure Exposed N/A -Texture (Lisa-wound Skin Appearance) Assessed -Moisture (Lisa-wound Skin Appearance Dry/Scaly ) -Color (Lisa-wound Skin Appearance) Assessed -Temperature (Lisa-wound Skin No Abnormality Appearance) (Pt Warm) -Tenderness on Palpation (Lisa-wound No Skin Appearance) -Ulcer Cleansing Wound Cleanser -Foul Odor after Cleansing No -Anesthetic Used 4% Lidocaine Solution #4 R post LE -Combined with other wound No -Current Size (cm) - Length 2 -Current Size (cm) - Width 1.7 -Current Size (cm) - Depth 0.3 -Total Square Cm 3.4 -Photo Taken No -Tunneling No -Undermining/Tunneling Yes -Undermining/Tunneling Starts (O' 11 clock) -Undermining/Tunneling Ends (O'clock) 2 -Maximum Distance (cm) 1.1 -Exudate Amt Small -Exudate Type Serosanguineous -Wound Margin Distinct, Outline Attached -Granulation Amt None Present (0 %) -Slough/Fibrin Yes -Necrosis Amt Large (67-100%) -Necrotic Tissue Type Adherent Slough -Structure Exposed N/A -Texture (Lisa-wound Skin Appearance) Assessed -Moisture (Lisa-wound Skin Appearance Dry/Scaly ) -Color (Lisa-wound Skin Appearance) Assessed -Temperature (Lisa-wound Skin No Abnormality Appearance) (Pt Warm) -Tenderness on Palpation (Lisa-wound No Skin Appearance) -Ulcer Cleansing Wound Cleanser -Foul Odor after Cleansing No -Anesthetic Used 4% Lidocaine Solution #3 R Med LE -Combined with other wound No -Current Size (cm) - Length 1.6 -Current Size (cm) - Width 0.4 -Current Size (cm) - Depth 0.4 -Total Square Cm 0.64 -Photo Taken No -Tunneling No -Undermining/Tunneling No -Circular Undermining No -Change in Wound Grade/Stage No Query Text:If change please identify the Stage/Grade in the comment (ie. S2 G3) -Exudate Amt Small -Exudate Type Serosanguineous -Wound Margin Distinct, Outline Attached -Granulation Amt None Present (0 %) -Slough/Fibrin Yes -Necrosis Amt Large (67-100%) -Necrotic Tissue Type Adherent Slough -Structure Exposed N/A -Texture (Lisa-wound Skin Appearance) Assessed -Moisture (Lisa-wound Skin Appearance Dry/Scaly ) -Color (Lisa-wound Skin Appearance) Assessed -Temperature (Lisa-wound Skin No Abnormality Appearance) (Pt Warm) -Tenderness on Palpation (Lisa-wound No Skin Appearance) -Ulcer Cleansing Wound Cleanser -Foul Odor after Cleansing No -Anesthetic Used 4% Lidocaine Solution #2 R [place] -Combined with other wound No -Current Size (cm) - Length 10 -Current Size (cm) - Width 3 -Current Size (cm) - Depth 0.2 -Total Square Cm 30 -Tunneling No -Undermining/Tunneling No -Circular Undermining No -Exudate Amt Small -Exudate Type Serosanguineous -Wound Margin Distinct, Outline Attached -Granulation Amt Medium (34-66%) -Granulation Quality [place] -Slough/Fibrin Yes -Necrosis Amt Medium (34-66%) -Necrotic Tissue Type Adherent Slough -Structure Exposed N/A -Texture (Lisa-wound Skin Appearance) Assessed -Moisture (Lisa-wound Skin Appearance Assessed ) -Color (Lisa-wound Skin Appearance) Assessed -Temperature (Lisa-wound Skin No Abnormality Appearance) (Pt Warm) -Tenderness on Palpation (Lisa-wound No Skin Appearance) -Ulcer Cleansing Wound Cleanser -Foul Odor after Cleansing No -Anesthetic Used 4% Lidocaine Solution #1 R 2nd toe amp -Combined with other wound No -Current Size (cm) - Length 3.1 -Current Size (cm) - Width 1 -Current Size (cm) - Depth 0.1 -Total Square Cm 3.1 -Tunneling No -Undermining/Tunneling No -Circular Undermining No -Exudate Amt Small -Exudate Type Serosanguineous -Wound Margin Distinct, Outline Attached -Granulation Amt Medium (34-66%) -Granulation Quality [place] -Slough/Fibrin Yes -Necrosis Amt Medium (34-66%) -Necrotic Tissue Type Adherent Slough -Structure Exposed N/A -Texture (Lisa-wound Skin Appearance) Assessed -Moisture (Lisa-wound Skin Appearance Assessed ) Dry/Scaly -Color (Lisa-wound Skin Appearance) Assessed -Temperature (Lisa-wound Skin No Abnormality Appearance) (Pt Warm) -Tenderness on Palpation (Lisa-wound No Skin Appearance) -Ulcer Cleansing Wound Cleanser -Foul Odor after Cleansing No -Anesthetic Used 4% Lidocaine Solution [Edema Assessment] -Lower Limb Edema Present Yes -Right Calf (cm) 34.8 -Right Ankle (cm) 21.5 -Left Calf (cm) 33.5 -Left Ankle (cm) 21 WC - Nurse 2 - General Ulcer CM Notes Start: 12/28/18 08:08 Freq: Status: Active Protocol: Activity Type Activity Date Activity User E-Sign Co-Sign Detail Recorded Client Recorded Date Recorded By Document 12/28/18 08:42 JF [id number] 12/28/18 08:47 JF Document 12/28/18 09:52 MW [id number] 12/28/18 09:53 MW 12/28/18 12/28/18 08:42 09:52 Wound Center Nurse 2 [Procedure/Treatment] #11 RIGHT MEDIAL FOOT -Time 08:43 -Correct Patient Yes -Correct Side, Site, Position Yes -Correct Procedure Yes -Procedure Performed Yes -Type of Procedure Debridement -Clinical Debridement Subcutaneous -Post Debridement Size (cm) - Length 14.4 -Post Debridement Size (cm) - Width 2.5 -Post Debridement Size (cm) - Depth 0.6 -Total Square Cm 36.00 -Wound/Ulcer Outcome Not Healed -Ulcer Cleansing Rinsed/ Irrigated with Saline -Foul Odor after Cleansing No -Bioengineered Tissue No -Bleeding Controlled with Pressure -Offloading No -Treatment Response Procedure Tolerated Well #8 r Knee -Time 09:52 -Correct Patient No Yes -Correct Side, Site, Position No Yes -Correct Procedure No Yes -Procedure Performed No Yes -Type of Procedure Debridement -Clinical Debridement Subcutaneous -Post Debridement Size (cm) - Length 0.7 -Post Debridement Size (cm) - Width 0.8 -Post Debridement Size (cm) - Depth 0.2 -Total Square Cm 0.56 -Wound/Ulcer Outcome Not Healed -Ulcer Cleansing Rinsed/ Irrigated with Saline -Foul Odor after Cleansing No -Bioengineered Tissue No -Bleeding Controlled with Pressure -Offloading No -Treatment Response Procedure Tolerated Well #6 L Post -Time 08:44 -Correct Patient Yes -Correct Side, Site, Position Yes -Correct Procedure Yes -Procedure Performed Yes -Type of Procedure Debridement -Clinical Debridement Subcutaneous -Post Debridement Size (cm) - Length 21.5 -Post Debridement Size (cm) - Width 1.6 -Post Debridement Size (cm) - Depth 0.3 -Total Square Cm 34.40 -Wound/Ulcer Outcome Not Healed -Ulcer Cleansing Rinsed/ Irrigated with Saline -Foul Odor after Cleansing No -Bioengineered Tissue No -Bleeding Controlled with Pressure -Offloading No -Treatment Response Procedure Tolerated Well #5 R Lat LE -Time 08:44 -Correct Patient Yes -Correct Side, Site, Position Yes -Correct Procedure Yes -Procedure Performed Yes -Type of Procedure Debridement -Clinical Debridement Subcutaneous -Post Debridement Size (cm) - Length 2.1 -Post Debridement Size (cm) - Width 1.3 -Post Debridement Size (cm) - Depth 0.1 -Total Square Cm 2.73 -Wound/Ulcer Outcome Not Healed -Ulcer Cleansing Rinsed/ Irrigated with Saline -Foul Odor after Cleansing No -Bioengineered Tissue No -Bleeding Controlled with Pressure -Offloading No -Treatment Response Procedure Tolerated Well #4 R post LE -Time 08:44 -Correct Patient Yes -Correct Side, Site, Position Yes -Correct Procedure Yes -Procedure Performed Yes -Type of Procedure Debridement -Clinical Debridement Subcutaneous -Post Debridement Size (cm) - Length 2.1 -Post Debridement Size (cm) - Width 1.8 -Post Debridement Size (cm) - Depth 0.3 -Total Square Cm 3.78 -Wound/Ulcer Outcome Not Healed -Ulcer Cleansing Rinsed/ Irrigated with Saline -Foul Odor after Cleansing No -Bioengineered Tissue No -Bleeding Controlled with Pressure -Offloading No -Treatment Response Procedure Tolerated Well #3 R Med LE -Time 08:45 -Correct Patient Yes -Correct Side, Site, Position Yes -Correct Procedure Yes -Procedure Performed Yes -Type of Procedure Debridement -Clinical Debridement Subcutaneous -Post Debridement Size (cm) - Length 1.6 -Post Debridement Size (cm) - Width 0.5 -Post Debridement Size (cm) - Depth 0.4 -Total Square Cm 0.80 -Wound/Ulcer Outcome Not Healed -Ulcer Cleansing Rinsed/ Irrigated with Saline -Foul Odor after Cleansing No -Bioengineered Tissue No -Bleeding Controlled with Pressure -Offloading No -Treatment Response Procedure Tolerated Well #2 R [place] Cluster -Time 08:45 -Correct Patient Yes -Correct Side, Site, Position Yes -Correct Procedure Yes -Procedure Performed Yes -Type of Procedure Debridement -Clinical Debridement Subcutaneous -Post Debridement Size (cm) - Length 10 -Post Debridement Size (cm) - Width 3.1 -Post Debridement Size (cm) - Depth 0.2 -Total Square Cm 31.0 -Wound/Ulcer Outcome Not Healed -Ulcer Cleansing Rinsed/ Irrigated with Saline -Foul Odor after Cleansing No -Bioengineered Tissue No -Bleeding Controlled with Pressure -Offloading No -Treatment Response Procedure Tolerated Well #1 R 2nd toe amp -Time 08:45 -Correct Patient Yes -Correct Side, Site, Position Yes -Correct Procedure Yes -Procedure Performed Yes -Type of Procedure Debridement -Clinical Debridement Subcutaneous -Post Debridement Size (cm) - Length 3.2 -Post Debridement Size (cm) - Width 1 -Post Debridement Size (cm) - Depth 0.1 -Total Square Cm 3.2 -Wound/Ulcer Outcome Not Healed -Ulcer Cleansing Rinsed/ Irrigated with Saline -Foul Odor after Cleansing No -Bioengineered Tissue No -Bleeding Controlled with Pressure -Offloading No -Treatment Response Procedure Tolerated Well [See Physician Procedure note for Specifics] Pain Scale: 0-10 Numeric [Pain] -Is Patient Pain Free? Yes Yes Musculoskeletal: No Muscle Wasting Neurological: Cranial nerves II-XII grossly intact Psych/Mental Status: Normal Affect Debridement Note Post-Debridement Measurements/Treatment WC - Nurse 2 - General Ulcer CM Notes Start: 12/28/18 08:08 Freq: Status: Active Protocol: Activity Type Activity Date Activity User E-Sign Co-Sign Detail Recorded Client Recorded Date Recorded By Document 12/28/18 08:42 JF [id number] 12/28/18 08:47 JF Document 12/28/18 09:52 MW [id number] 12/28/18 09:53 MW 12/28/18 12/28/18 08:42 09:52 Wound Center Nurse 2 #11 RIGHT MEDIAL FOOT -Time 08:43 -Correct Patient Yes -Correct Side, Site, Position Yes -Correct Procedure Yes -Procedure Performed Yes -Type of Procedure Debridement -Clinical Debridement Subcutaneous -Post Debridement Size (cm) - Length 14.4 -Post Debridement Size (cm) - Width 2.5 -Post Debridement Size (cm) - Depth 0.6 -Total Square Cm 36.00 -Wound/Ulcer Outcome Not Healed -Ulcer Cleansing Rinsed/ Irrigated with Saline -Foul Odor after Cleansing No -Bioengineered Tissue No -Bleeding Controlled with Pressure -Offloading No -Treatment Response Procedure Tolerated Well #8 r Knee -Time 09:52 -Correct Patient No Yes -Correct Side, Site, Position No Yes -Correct Procedure No Yes -Procedure Performed No Yes -Type of Procedure Debridement -Clinical Debridement Subcutaneous -Post Debridement Size (cm) - Length 0.7 -Post Debridement Size (cm) - Width 0.8 -Post Debridement Size (cm) - Depth 0.2 -Total Square Cm 0.56 -Wound/Ulcer Outcome Not Healed -Ulcer Cleansing Rinsed/ Irrigated with Saline -Foul Odor after Cleansing No -Bioengineered Tissue No -Bleeding Controlled with Pressure -Offloading No -Treatment Response Procedure Tolerated Well #6 L Post -Time 08:44 -Correct Patient Yes -Correct Side, Site, Position Yes -Correct Procedure Yes -Procedure Performed Yes -Type of Procedure Debridement -Clinical Debridement Subcutaneous -Post Debridement Size (cm) - Length 21.5 -Post Debridement Size (cm) - Width 1.6 -Post Debridement Size (cm) - Depth 0.3 -Total Square Cm 34.40 -Wound/Ulcer Outcome Not Healed -Ulcer Cleansing Rinsed/ Irrigated with Saline -Foul Odor after Cleansing No -Bioengineered Tissue No -Bleeding Controlled with Pressure -Offloading No -Treatment Response Procedure Tolerated Well #5 R Lat LE -Time 08:44 -Correct Patient Yes -Correct Side, Site, Position Yes -Correct Procedure Yes -Procedure Performed Yes -Type of Procedure Debridement -Clinical Debridement Subcutaneous -Post Debridement Size (cm) - Length 2.1 -Post Debridement Size (cm) - Width 1.3 -Post Debridement Size (cm) - Depth 0.1 -Total Square Cm 2.73 -Wound/Ulcer Outcome Not Healed -Ulcer Cleansing Rinsed/ Irrigated with Saline -Foul Odor after Cleansing No -Bioengineered Tissue No -Bleeding Controlled with Pressure -Offloading No -Treatment Response Procedure Tolerated Well #4 R post LE -Time 08:44 -Correct Patient Yes -Correct Side, Site, Position Yes -Correct Procedure Yes -Procedure Performed Yes -Type of Procedure Debridement -Clinical Debridement Subcutaneous -Post Debridement Size (cm) - Length 2.1 -Post Debridement Size (cm) - Width 1.8 -Post Debridement Size (cm) - Depth 0.3 -Total Square Cm 3.78 -Wound/Ulcer Outcome Not Healed -Ulcer Cleansing Rinsed/ Irrigated with Saline -Foul Odor after Cleansing No -Bioengineered Tissue No -Bleeding Controlled with Pressure -Offloading No -Treatment Response Procedure Tolerated Well #3 R Med LE -Time 08:45 -Correct Patient Yes -Correct Side, Site, Position Yes -Correct Procedure Yes -Procedure Performed Yes -Type of Procedure Debridement -Clinical Debridement Subcutaneous -Post Debridement Size (cm) - Length 1.6 -Post Debridement Size (cm) - Width 0.5 -Post Debridement Size (cm) - Depth 0.4 -Total Square Cm 0.80 -Wound/Ulcer Outcome Not Healed -Ulcer Cleansing Rinsed/ Irrigated with Saline -Foul Odor after Cleansing No -Bioengineered Tissue No -Bleeding Controlled with Pressure -Offloading No -Treatment Response Procedure Tolerated Well #2 R [place] Cluster -Time 08:45 -Correct Patient Yes -Correct Side, Site, Position Yes -Correct Procedure Yes -Procedure Performed Yes -Type of Procedure Debridement -Clinical Debridement Subcutaneous -Post Debridement Size (cm) - Length 10 -Post Debridement Size (cm) - Width 3.1 -Post Debridement Size (cm) - Depth 0.2 -Total Square Cm 31.0 -Wound/Ulcer Outcome Not Healed -Ulcer Cleansing Rinsed/ Irrigated with Saline -Foul Odor after Cleansing No -Bioengineered Tissue No -Bleeding Controlled with Pressure -Offloading No -Treatment Response Procedure Tolerated Well #1 R 2nd toe amp -Time 08:45 -Correct Patient Yes -Correct Side, Site, Position Yes -Correct Procedure Yes -Procedure Performed Yes -Type of Procedure Debridement -Clinical Debridement Subcutaneous -Post Debridement Size (cm) - Length 3.2 -Post Debridement Size (cm) - Width 1 -Post Debridement Size (cm) - Depth 0.1 -Total Square Cm 3.2 -Wound/Ulcer Outcome Not Healed -Ulcer Cleansing Rinsed/ Irrigated with Saline -Foul Odor after Cleansing No -Bioengineered Tissue No -Bleeding Controlled with Pressure -Offloading No -Treatment Response Procedure Tolerated Well Pain Scale: 0-10 Numeric Is Patient Pain Free? Yes Yes Wound debrided: Right knee Wound Grade/Stage: Stage III Type of Debridement: Excisional debridement Anesthesia Used: 4% Lidocaine Solution Depth: Down to and including healthy tissue, in the subcutaneous layer Percentage of wound debrided: 100 Instrument Used: 3mm curette Tissue Removed: Slough and devitalized tissue Severity: Fat Layer Exposed Amount of bleeding with debridement: Mild Bleeding Controlled with: Pressure Patient tolerated procedure well Assessment/Plan Active Problems (Last Updated 09/28/18 @ 12:41 by Geraldine Steele) Ulcer of right foot with fat layer exposed (Chronic) 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) Ulcer of right lower extremity with fat layer exposed (Chronic) Skin ulcer of right knee with fat layer exposed (Chronic) Delayed wound healing (Chronic) 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 Diabetic neuropathy. Malnutrition suspected. 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 Delayed healing. Gait impairment and fall risk. Other comorbidities, right knee ulcer, tendon exposed (Dr. Gilbert managed). Plan: Slowly improving right knee. No new concerns at this time. Debridement done as documented above. Procedure was well-tolerated. Continue Promogran with Adaptic over top. Change every third day. Elevate lower extremities when seated in bed. Continue conservative wound care management and will be seen here every 2 weeks. Continue other wound care management per Dr. Gruber. He was advised to call with any questions or concerns. This note was generated with [employer] dictation software. It may contain incorrect words, spelling, and punctuation that were not noted in checking the note before signing.
[2019-01-18 08:07] VITALS: BP 137/85; PULSE 90; RESP 18; TEMP 36.1
--- NOTE | 2019-01-18 08:53 | PCM.WC.PN ---
(1) Skin ulcer of right knee with fat layer exposed Status: Chronic Current Visit: Yes Code(s): L97.812 - Non-pressure chronic ulcer of other part of right lower leg with fat layer exposed (2) DM2 (diabetes mellitus, type 2) Status: Chronic Current Visit: Yes Code(s): E11.9 - Type 2 diabetes mellitus without complications Type of Wound Chief Complaint: right and left Leg ulcers and right foot ulcer History of Wound: Mr. Arguello is a 63-year-old male with multiple comorbidities follows up for delayed healing ulcers to the right foot as well as bilateral legs. It is noted he previously had widespread debridements and fasciotomies performed to bilateral lower extremities secondary to life-threatening and limb threatening infection; this was previously performed at [facility]. He continues to follow with Dr. Gilbert for his right knee ulcer. He denies chills, fever or otherwise feeling of unwell. He presents today with his . He still refuses advanced wound care product application. He refuses hyperbaric oxygen therapy treatment. He elects to proceed with a palliative care plan because he is refusing the other treatment recommendations. Progress of Wound: Stable. No new concerns at this time. - Physical Exam Vital Signs Temp Pulse Resp BP 97 F L 90 18 137/85 H 01/18/19 08:07 01/18/19 08:07 01/18/19 08:07 01/18/19 08:07 General: Alert, Oriented x3, Cooperative, No apparent distress HEENT: Atraumatic, Normocephalic Oral: Moist Mucosa Neck: Supple Lungs: Normal air movement Abdomen: Non Tender Extremities: No cyanosis Wound Measurements and Assessment WC - Nurse 1 - General Ulcer Measurement Start: 12/28/18 08:08 Freq: Status: Active Protocol: Activity Type Activity Date Activity User E-Sign Co-Sign Detail Recorded Client Recorded Date Recorded By Document 01/18/19 08:07 DL [id number] 01/18/19 08:31 DL 01/18/19 08:07 Wound Center Nurse 1 [Ulcer Assessment] #11 RIGHT MEDIAL FOOT -Current Size (cm) - Length 11 -Current Size (cm) - Width 2.4 -Current Size (cm) - Depth 0.6 -Total Square Cm 26.4 -Photo Taken Yes -Exudate Amt Small -Exudate Type Serosanguineous -Wound Margin Thickened -Granulation Amt Small (1-33%) -Granulation Quality [place] -Necrosis Amt Large (67-100%) -Necrotic Tissue Type Adherent Slough -Structure Exposed N/A -Texture (Lisa-wound Skin Appearance) Localized Edema Scarring -Moisture (Lisa-wound Skin Appearance Dry/Scaly ) -Color (Lisa-wound Skin Appearance) Hemosiderin Staining Rubor -Temperature (Lisa-wound Skin No Abnormality Appearance) (Pt Warm) -Tenderness on Palpation (Lisa-wound No Skin Appearance) -Ulcer Cleansing Wound Cleanser -Foul Odor after Cleansing No -Anesthetic Used 5% Lidocaine Gel #8 r Knee -Current Size (cm) - Length 1.1 -Current Size (cm) - Width 1.2 -Current Size (cm) - Depth 0.2 -Total Square Cm 1.32 -Photo Taken Yes -Exudate Amt Small -Exudate Type Serosanguineous -Wound Margin Thickened -Granulation Amt None Present (0 %) -Necrosis Amt Large (67-100%) -Necrotic Tissue Type Adherent Slough -Structure Exposed N/A -Texture (Lisa-wound Skin Appearance) Scarring -Moisture (Lisa-wound Skin Appearance Dry/Scaly ) -Color (Lisa-wound Skin Appearance) Hemosiderin Staining -Temperature (Lisa-wound Skin No Abnormality Appearance) (Pt Warm) -Tenderness on Palpation (Lisa-wound No Skin Appearance) -Ulcer Cleansing Wound Cleanser -Foul Odor after Cleansing No -Anesthetic Used 4% Lidocaine Solution #6 L Post -Current Size (cm) - Length 21.5 -Current Size (cm) - Width 2.2 -Current Size (cm) - Depth 0.6 -Total Square Cm 47.30 -Photo Taken Yes -Exudate Type Serosanguineous -Wound Margin Thickened & Rolled Under -Granulation Amt Medium (34-66%) -Granulation Quality [place] -Necrosis Amt Medium (34-66%) -Necrotic Tissue Type Adherent Slough -Structure Exposed N/A -Texture (Lisa-wound Skin Appearance) Scarring -Moisture (Lisa-wound Skin Appearance Dry/Scaly ) -Color (Lisa-wound Skin Appearance) Hemosiderin Staining -Temperature (Lisa-wound Skin No Abnormality Appearance) (Pt Warm) -Tenderness on Palpation (Lisa-wound No Skin Appearance) -Ulcer Cleansing Wound Cleanser -Foul Odor after Cleansing No -Anesthetic Used 4% Lidocaine Solution #5 R Lat LE -Current Size (cm) - Length 1.8 -Current Size (cm) - Width 1.5 -Current Size (cm) - Depth 0.2 -Total Square Cm 2.70 -Photo Taken Yes -Exudate Amt Small -Exudate Type Serosanguineous -Wound Margin Thickened & Rolled Under -Granulation Amt None Present (0 %) -Necrosis Amt Large (67-100%) -Necrotic Tissue Type Adherent Slough -Structure Exposed N/A -Texture (Lisa-wound Skin Appearance) Scarring -Moisture (Lisa-wound Skin Appearance Dry/Scaly ) -Color (Lisa-wound Skin Appearance) Hemosiderin Staining -Temperature (Lisa-wound Skin No Abnormality Appearance) (Pt Warm) -Tenderness on Palpation (Lisa-wound No Skin Appearance) -Ulcer Cleansing Wound Cleanser -Foul Odor after Cleansing No -Anesthetic Used 4% Lidocaine Solution #4 R post LE -Current Size (cm) - Length 2.2 -Current Size (cm) - Width 2.3 -Current Size (cm) - Depth 0.3 -Total Square Cm 5.06 -Photo Taken Yes -Exudate Amt Small -Exudate Type Serosanguineous -Wound Margin Thickened -Granulation Amt Small (1-33%) -Granulation Quality [place] -Necrosis Amt Large (67-100%) -Necrotic Tissue Type Adherent Slough -Structure Exposed N/A -Texture (Lisa-wound Skin Appearance) Scarring -Moisture (Lisa-wound Skin Appearance Dry/Scaly ) -Color (Lisa-wound Skin Appearance) Hemosiderin Staining -Temperature (Lisa-wound Skin No Abnormality Appearance) (Pt Warm) -Tenderness on Palpation (Lisa-wound No Skin Appearance) -Ulcer Cleansing Wound Cleanser -Foul Odor after Cleansing No -Anesthetic Used 4% Lidocaine Solution #3 R Med LE -Current Size (cm) - Length 2.7 -Current Size (cm) - Width 1 -Current Size (cm) - Depth 0.3 -Total Square Cm 2.7 -Photo Taken Yes -Exudate Amt Small -Exudate Type Yellow/Green -Wound Margin Thickened -Granulation Amt None Present (0 %) -Necrosis Amt Large (67-100%) -Necrotic Tissue Type Adherent Slough -Structure Exposed N/A -Texture (Lisa-wound Skin Appearance) Scarring -Moisture (Lisa-wound Skin Appearance Dry/Scaly ) -Color (Lisa-wound Skin Appearance) Hemosiderin Staining -Temperature (Lisa-wound Skin No Abnormality Appearance) (Pt Warm) -Tenderness on Palpation (Lisa-wound No Skin Appearance) -Ulcer Cleansing Wound Cleanser -Foul Odor after Cleansing No -Anesthetic Used 4% Lidocaine Solution #2 R [place] -Current Size (cm) - Length 10 -Current Size (cm) - Width 2.5 -Current Size (cm) - Depth 0.2 -Total Square Cm 25.0 -Photo Taken Yes -Exudate Amt Small -Exudate Type Serosanguineous -Wound Margin Thickened -Granulation Amt Small (1-33%) -Granulation Quality Red -Necrosis Amt Large (67-100%) -Necrotic Tissue Type Adherent Slough -Structure Exposed N/A -Texture (Lisa-wound Skin Appearance) Scarring -Moisture (Lisa-wound Skin Appearance Dry/Scaly ) -Color (Lisa-wound Skin Appearance) Hemosiderin Staining -Temperature (Lisa-wound Skin No Abnormality Appearance) (Pt Warm) -Tenderness on Palpation (Lisa-wound No Skin Appearance) -Ulcer Cleansing Wound Cleanser -Foul Odor after Cleansing No -Anesthetic Used 4% Lidocaine Solution #1 R 2nd toe amp -Current Size (cm) - Length 4 -Current Size (cm) - Width 0.5 -Current Size (cm) - Depth 1 -Total Square Cm 2.0 -Photo Taken Yes -Exudate Amt Small -Exudate Type Serosanguineous -Wound Margin Thickened -Granulation Amt Medium (34-66%) -Granulation Quality [place] -Necrosis Amt Medium (34-66%) -Necrotic Tissue Type Adherent Slough -Structure Exposed N/A -Texture (Lisa-wound Skin Appearance) Scarring -Moisture (Lisa-wound Skin Appearance Dry/Scaly ) -Color (Lisa-wound Skin Appearance) Hemosiderin Staining -Temperature (Lisa-wound Skin No Abnormality Appearance) (Pt Warm) -Tenderness on Palpation (Lisa-wound No Skin Appearance) -Ulcer Cleansing Wound Cleanser -Foul Odor after Cleansing No -Anesthetic Used 4% Lidocaine Solution [Edema Assessment] -Right Calf (cm) 35 -Right Ankle (cm) 22 -Left Calf (cm) 33.5 -Left Ankle (cm) 21.6 - Nurse 2 - General Ulcer CM Notes Start: 12/28/18 08:08 Freq: Status: Active Protocol: Activity Type Activity Date Activity User E-Sign Co-Sign Detail Recorded Client Recorded Date Recorded By Document 01/18/19 08:40 MW [id number] 01/18/19 08:41 MW 01/18/19 08:40 Wound Center Nurse 2 [Procedure/Treatment] #8 r Knee -Time 08:40 -Correct Patient Yes -Correct Side, Site, Position Yes -Correct Procedure Yes -Procedure Performed Yes -Type of Procedure Debridement -Clinical Debridement Subcutaneous -Post Debridement Size (cm) - Length 0.7 -Post Debridement Size (cm) - Width 0.7 -Post Debridement Size (cm) - Depth 0.1 -Total Square Cm 0.49 -Wound/Ulcer Outcome Not Healed -Ulcer Cleansing Rinsed/ Irrigated with Saline -Foul Odor after Cleansing No -Bioengineered Tissue No -Bleeding Controlled with Pressure -Offloading No -Treatment Response Procedure Not Tolerated Well [See Physician Procedure note for Specifics] Musculoskeletal: No Muscle Wasting Neurological: Cranial nerves II-XII grossly intact Psych/Mental Status: Normal Affect Debridement Note Post-Debridement Measurements/Treatment - Nurse 2 - General Ulcer CM Notes Start: 12/28/18 08:08 Freq: Status: Active Protocol: Activity Type Activity Date Activity User E-Sign Co-Sign Detail Recorded Client Recorded Date Recorded By Document 12/28/18 08:42 JF [id number] 12/28/18 08:47 JF Document 12/28/18 09:52 MW [id number] 12/28/18 09:53 MW Document 01/18/19 08:40 MW [id number] 01/18/19 08:41 MW 12/28/18 12/28/18 01/18/19 08:42 09:52 08:40 Wound Center Nurse 2 #11 RIGHT MEDIAL FOOT -Time 08:43 -Correct Patient Yes -Correct Side, Site, Position Yes -Correct Procedure Yes -Procedure Performed Yes -Type of Procedure Debridement -Clinical Debridement Subcutaneous -Post Debridement Size (cm) - Length 14.4 -Post Debridement Size (cm) - Width 2.5 -Post Debridement Size (cm) - Depth 0.6 -Total Square Cm 36.00 -Wound/Ulcer Outcome Not Healed -Ulcer Cleansing Rinsed/ Irrigated with Saline -Foul Odor after Cleansing No -Bioengineered Tissue No -Bleeding Controlled with Pressure -Offloading No -Treatment Response Procedure Tolerated Well #8 r Knee -Time 09:52 08:40 -Correct Patient No Yes Yes -Correct Side, Site, Position No Yes Yes -Correct Procedure No Yes Yes -Procedure Performed No Yes Yes -Type of Procedure Debridement Debridement -Clinical Debridement Subcutaneous Subcutaneous -Post Debridement Size (cm) - Length 0.7 0.7 -Post Debridement Size (cm) - Width 0.8 0.7 -Post Debridement Size (cm) - Depth 0.2 0.1 -Total Square Cm 0.56 0.49 -Wound/Ulcer Outcome Not Healed Not Healed -Ulcer Cleansing Rinsed/ Rinsed/ Irrigated with Irrigated with Saline Saline -Foul Odor after Cleansing No No -Bioengineered Tissue No No -Bleeding Controlled with Pressure Pressure -Offloading No No -Treatment Response Procedure Procedure Not Tolerated Well Tolerated Well #6 L Post -Time 08:44 -Correct Patient Yes -Correct Side, Site, Position Yes -Correct Procedure Yes -Procedure Performed Yes -Type of Procedure Debridement -Clinical Debridement Subcutaneous -Post Debridement Size (cm) - Length 21.5 -Post Debridement Size (cm) - Width 1.6 -Post Debridement Size (cm) - Depth 0.3 -Total Square Cm 34.40 -Wound/Ulcer Outcome Not Healed -Ulcer Cleansing Rinsed/ Irrigated with Saline -Foul Odor after Cleansing No -Bioengineered Tissue No -Bleeding Controlled with Pressure -Offloading No -Treatment Response Procedure Tolerated Well #5 R Lat LE -Time 08:44 -Correct Patient Yes -Correct Side, Site, Position Yes -Correct Procedure Yes -Procedure Performed Yes -Type of Procedure Debridement -Clinical Debridement Subcutaneous -Post Debridement Size (cm) - Length 2.1 -Post Debridement Size (cm) - Width 1.3 -Post Debridement Size (cm) - Depth 0.1 -Total Square Cm 2.73 -Wound/Ulcer Outcome Not Healed -Ulcer Cleansing Rinsed/ Irrigated with Saline -Foul Odor after Cleansing No -Bioengineered Tissue No -Bleeding Controlled with Pressure -Offloading No -Treatment Response Procedure Tolerated Well #4 R post LE -Time 08:44 -Correct Patient Yes -Correct Side, Site, Position Yes -Correct Procedure Yes -Procedure Performed Yes -Type of Procedure Debridement -Clinical Debridement Subcutaneous -Post Debridement Size (cm) - Length 2.1 -Post Debridement Size (cm) - Width 1.8 -Post Debridement Size (cm) - Depth 0.3 -Total Square Cm 3.78 -Wound/Ulcer Outcome Not Healed -Ulcer Cleansing Rinsed/ Irrigated with Saline -Foul Odor after Cleansing No -Bioengineered Tissue No -Bleeding Controlled with Pressure -Offloading No -Treatment Response Procedure Tolerated Well #3 R Med LE -Time 08:45 -Correct Patient Yes -Correct Side, Site, Position Yes -Correct Procedure Yes -Procedure Performed Yes -Type of Procedure Debridement -Clinical Debridement Subcutaneous -Post Debridement Size (cm) - Length 1.6 -Post Debridement Size (cm) - Width 0.5 -Post Debridement Size (cm) - Depth 0.4 -Total Square Cm 0.80 -Wound/Ulcer Outcome Not Healed -Ulcer Cleansing Rinsed/ Irrigated with Saline -Foul Odor after Cleansing No -Bioengineered Tissue No -Bleeding Controlled with Pressure -Offloading No -Treatment Response Procedure Tolerated Well #2 R [place] Cluster -Time 08:45 -Correct Patient Yes -Correct Side, Site, Position Yes -Correct Procedure Yes -Procedure Performed Yes -Type of Procedure Debridement -Clinical Debridement Subcutaneous -Post Debridement Size (cm) - Length 10 -Post Debridement Size (cm) - Width 3.1 -Post Debridement Size (cm) - Depth 0.2 -Total Square Cm 31.0 -Wound/Ulcer Outcome Not Healed -Ulcer Cleansing Rinsed/ Irrigated with Saline -Foul Odor after Cleansing No -Bioengineered Tissue No -Bleeding Controlled with Pressure -Offloading No -Treatment Response Procedure Tolerated Well #1 R 2nd toe amp -Time 08:45 -Correct Patient Yes -Correct Side, Site, Position Yes -Correct Procedure Yes -Procedure Performed Yes -Type of Procedure Debridement -Clinical Debridement Subcutaneous -Post Debridement Size (cm) - Length 3.2 -Post Debridement Size (cm) - Width 1 -Post Debridement Size (cm) - Depth 0.1 -Total Square Cm 3.2 -Wound/Ulcer Outcome Not Healed -Ulcer Cleansing Rinsed/ Irrigated with Saline -Foul Odor after Cleansing No -Bioengineered Tissue No -Bleeding Controlled with Pressure -Offloading No -Treatment Response Procedure Tolerated Well Pain Scale: 0-10 Numeric Is Patient Pain Free? Yes Yes Wound debrided: Right knee Wound Grade/Stage: Stage III Type of Debridement: Excisional debridement Anesthesia Used: 4% Lidocaine Solution Depth: Down to and including healthy tissue, in the subcutaneous layer Percentage of wound debrided: 100 Instrument Used: 3mm curette Tissue Removed: Slough and devitalized tissue Severity: Fat Layer Exposed Amount of bleeding with debridement: Mild Bleeding Controlled with: Pressure Patient tolerated procedure well Assessment/Plan Active Problems (Last Updated 09/28/18 @ 12:41 by Geraldine Steele) Ulcer of right foot with fat layer exposed (Chronic) 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) Ulcer of right lower extremity with fat layer exposed (Chronic) Skin ulcer of right knee with fat layer exposed (Chronic) Delayed wound healing (Chronic) 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 Diabetic neuropathy. Malnutrition suspected. 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 Delayed healing. Gait impairment and fall risk. Other comorbidities, right knee ulcer Plan: Slowly improving. No new concerns. Debridement done as documented above. Procedure was well-tolerated. Continue Promogran with Adaptic over the top. Change every third day. Elevate lower extremities when seated and in bed. Continue increased protein intake. Other wound care management per Dr. Gruber. Patient is currently complex care. Follow-up in 2 weeks. This note was generated with [employer] software. It may contain incorrect words, spelling, and punctuation that were not noted in checking the note before signing.
--- NOTE | 2019-01-18 12:54 | PN.PCM_ITS ---
(1) Non-pressure chronic ulcer of other part of left foot with fat layer exposed Status: Chronic Current Visit: Yes Code(s): L97.522 - Non-pressure chronic ulcer of other part of left foot with fat layer exposed (2) Ulcer of right lower extremity with fat layer exposed Status: Chronic Current Visit: Yes Code(s): L97.912 - Non-pressure chronic ulcer of unspecified part of right lower leg with fat layer exposed (3) Ulcer of right foot with fat layer exposed Status: Chronic Current Visit: Yes Code(s): L97.512 - Non-pressure chronic ulcer of other part of right foot with fat layer exposed (4) Delayed wound healing Status: Chronic Current Visit: Yes Code(s): T14.8XXD - Other injury of unspecified body region, subsequent encounter (5) 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 Current Visit: Yes Code(s): L97.923 - Non-pressure chronic ulcer of unspecified part of left lower leg with necrosis of muscle (6) PVD (peripheral vascular disease) Status: Suspected Current Visit: Yes Code(s): I73.9 - Peripheral vascular disease, unspecified (7) Type 2 diabetes mellitus with diabetic polyneuropathy Status: Chronic Current Visit: Yes Code(s): E11.42 - Type 2 diabetes mellitus with diabetic polyneuropathy (8) Localized edema Status: Chronic Current Visit: Yes Code(s): R60.0 - Localized edema (9) Malnutrition Status: Chronic Current Visit: Yes Code(s): E46 - Unspecified protein- calorie malnutrition Type of Wound Chief Complaint: right and left Leg ulcers and right foot ulcer History of Wound: Mr. Arguello is a 63-year-old male with multiple comorbidities follows up for delayed healing ulcers to the right foot as well as bilateral legs. It is noted he previously had widespread debridements and fasciotomies performed to bilateral lower extremities secondary to life-threatening and limb threatening infection; this was previously performed at [facility]. He continues to follow with Dr. Gilbert for his right knee ulcer. He denies chills, fever or otherwise feeling of unwell. He presents today with his . He still refuses advanced wound care product application. He refuses hyperbaric oxygen therapy treatment. He elects to proceed with a palliative care plan because he is refusing the other treatment recommendations. He missed his last appointment due to dangerous weather. He does have a new blister to the left foot with an onset of 3 weeks ago. He denies drainage however there is discoloration. He denies pain. He denies redness or odor from the site. He denies a traumatic accident. He reports he places more weight on his left foot and attempt to keep pressure off of the right limb. Progress of Wound: Stable. - Physical Exam Vital Signs Temp Pulse Resp BP 97 F L 90 18 137/85 H 01/18/19 08:07 01/18/19 08:07 01/18/19 08:07 01/18/19 08:07 General: Alert, Oriented x3, Cooperative HEENT: Atraumatic Extremities: No cyanosis, Capillary Refill Less than 3 Seconds, No Calf Tenderness - Negative Errol and [place] bilateral, Diminished Peripheral Pulses, Edema - Mild bilateral Skin: Ulcer/ Wound - No purulence, erythema, streaking, odor, infection, maceration, necrosis bilateral lower extremities. The peripheral skin is hairless and atrophic bilateral. There is a hematogenous filled bulla to the plantar central left forefoot with subcutaneous tissue exposed upon debridement. There is no purulence or probe to bone or deep tissue. Wound Measurements and Assessment WC - Nurse 1 - General Ulcer Measurement Start: 12/28/18 08:08 Freq: Status: Active Protocol: Activity Type Activity Date Activity User E-Sign Co-Sign Detail Recorded Client Recorded Date Recorded By Document 01/18/19 08:07 DL [id number] 01/18/19 08:31 DL 01/18/19 08:07 Wound Center Nurse 1 [Ulcer Assessment] #11 RIGHT MEDIAL FOOT -Current Size (cm) - Length 11 -Current Size (cm) - Width 2.4 -Current Size (cm) - Depth 0.6 -Total Square Cm 26.4 -Photo Taken Yes -Exudate Amt Small -Exudate Type Serosanguineous -Wound Margin Thickened -Granulation Amt Small (1-33%) -Granulation Quality [place] -Necrosis Amt Large (67-100%) -Necrotic Tissue Type Adherent Slough -Structure Exposed N/A -Texture (Lisa-wound Skin Appearance) Localized Edema Scarring -Moisture (Lisa-wound Skin Appearance Dry/Scaly ) -Color (Lisa-wound Skin Appearance) Hemosiderin Staining Rubor -Temperature (Lisa-wound Skin No Abnormality Appearance) (Pt Warm) -Tenderness on Palpation (Lisa-wound No Skin Appearance) -Ulcer Cleansing Wound Cleanser -Foul Odor after Cleansing No -Anesthetic Used 5% Lidocaine Gel #8 r Knee -Current Size (cm) - Length 1.1 -Current Size (cm) - Width 1.2 -Current Size (cm) - Depth 0.2 -Total Square Cm 1.32 -Photo Taken Yes -Exudate Amt Small -Exudate Type Serosanguineous -Wound Margin Thickened -Granulation Amt None Present (0 %) -Necrosis Amt Large (67-100%) -Necrotic Tissue Type Adherent Slough -Structure Exposed N/A -Texture (Lisa-wound Skin Appearance) Scarring -Moisture (Lisa-wound Skin Appearance Dry/Scaly ) -Color (Lisa-wound Skin Appearance) Hemosiderin Staining -Temperature (Lisa-wound Skin No Abnormality Appearance) (Pt Warm) -Tenderness on Palpation (Lisa-wound No Skin Appearance) -Ulcer Cleansing Wound Cleanser -Foul Odor after Cleansing No -Anesthetic Used 4% Lidocaine Solution #6 L Post -Current Size (cm) - Length 21.5 -Current Size (cm) - Width 2.2 -Current Size (cm) - Depth 0.6 -Total Square Cm 47.30 -Photo Taken Yes -Exudate Type Serosanguineous -Wound Margin Thickened & Rolled Under -Granulation Amt Medium (34-66%) -Granulation Quality [place] -Necrosis Amt Medium (34-66%) -Necrotic Tissue Type Adherent Slough -Structure Exposed N/A -Texture (Lisa-wound Skin Appearance) Scarring -Moisture (Lisa-wound Skin Appearance Dry/Scaly ) -Color (Lisa-wound Skin Appearance) Hemosiderin Staining -Temperature (Lisa-wound Skin No Abnormality Appearance) (Pt Warm) -Tenderness on Palpation (Lisa-wound No Skin Appearance) -Ulcer Cleansing Wound Cleanser -Foul Odor after Cleansing No -Anesthetic Used 4% Lidocaine Solution #5 R Lat LE -Current Size (cm) - Length 1.8 -Current Size (cm) - Width 1.5 -Current Size (cm) - Depth 0.2 -Total Square Cm 2.70 -Photo Taken Yes -Exudate Amt Small -Exudate Type Serosanguineous -Wound Margin Thickened & Rolled Under -Granulation Amt None Present (0 %) -Necrosis Amt Large (67-100%) -Necrotic Tissue Type Adherent Slough -Structure Exposed N/A -Texture (Lisa-wound Skin Appearance) Scarring -Moisture (Lisa-wound Skin Appearance Dry/Scaly ) -Color (Lisa-wound Skin Appearance) Hemosiderin Staining -Temperature (Lisa-wound Skin No Abnormality Appearance) (Pt Warm) -Tenderness on Palpation (Lisa-wound No Skin Appearance) -Ulcer Cleansing Wound Cleanser -Foul Odor after Cleansing No -Anesthetic Used 4% Lidocaine Solution #4 R post LE -Current Size (cm) - Length 2.2 -Current Size (cm) - Width 2.3 -Current Size (cm) - Depth 0.3 -Total Square Cm 5.06 -Photo Taken Yes -Exudate Amt Small -Exudate Type Serosanguineous -Wound Margin Thickened -Granulation Amt Small (1-33%) -Granulation Quality [place] -Necrosis Amt Large (67-100%) -Necrotic Tissue Type Adherent Slough -Structure Exposed N/A -Texture (Lisa-wound Skin Appearance) Scarring -Moisture (Lisa-wound Skin Appearance Dry/Scaly ) -Color (Lisa-wound Skin Appearance) Hemosiderin Staining -Temperature (Lisa-wound Skin No Abnormality Appearance) (Pt Warm) -Tenderness on Palpation (Lisa-wound No Skin Appearance) -Ulcer Cleansing Wound Cleanser -Foul Odor after Cleansing No -Anesthetic Used 4% Lidocaine Solution #3 R Med LE -Current Size (cm) - Length 2.7 -Current Size (cm) - Width 1 -Current Size (cm) - Depth 0.3 -Total Square Cm 2.7 -Photo Taken Yes -Exudate Amt Small -Exudate Type Yellow/Green -Wound Margin Thickened -Granulation Amt None Present (0 %) -Necrosis Amt Large (67-100%) -Necrotic Tissue Type Adherent Slough -Structure Exposed N/A -Texture (Lisa-wound Skin Appearance) Scarring -Moisture (Lisa-wound Skin Appearance Dry/Scaly ) -Color (Lisa-wound Skin Appearance) Hemosiderin Staining -Temperature (Lisa-wound Skin No Abnormality Appearance) (Pt Warm) -Tenderness on Palpation (Lisa-wound No Skin Appearance) -Ulcer Cleansing Wound Cleanser -Foul Odor after Cleansing No -Anesthetic Used 4% Lidocaine Solution #2 R [place] -Current Size (cm) - Length 10 -Current Size (cm) - Width 2.5 -Current Size (cm) - Depth 0.2 -Total Square Cm 25.0 -Photo Taken Yes -Exudate Amt Small -Exudate Type Serosanguineous -Wound Margin Thickened -Granulation Amt Small (1-33%) -Granulation Quality [place] -Necrosis Amt Large (67-100%) -Necrotic Tissue Type Adherent Slough -Structure Exposed N/A -Texture (Lisa-wound Skin Appearance) Scarring -Moisture (Lisa-wound Skin Appearance Dry/Scaly ) -Color (Lisa-wound Skin Appearance) Hemosiderin Staining -Temperature (Lisa-wound Skin No Abnormality Appearance) (Pt Warm) -Tenderness on Palpation (Lisa-wound No Skin Appearance) -Ulcer Cleansing Wound Cleanser -Foul Odor after Cleansing No -Anesthetic Used 4% Lidocaine Solution #1 R 2nd toe amp -Current Size (cm) - Length 4 -Current Size (cm) - Width 0.5 -Current Size (cm) - Depth 1 -Total Square Cm 2.0 -Photo Taken Yes -Exudate Amt Small -Exudate Type Serosanguineous -Wound Margin Thickened -Granulation Amt Medium (34-66%) -Granulation Quality [place] -Necrosis Amt Medium (34-66%) -Necrotic Tissue Type Adherent Slough -Structure Exposed N/A -Texture (Lisa-wound Skin Appearance) Scarring -Moisture (Lisa-wound Skin Appearance Dry/Scaly ) -Color (Lisa-wound Skin Appearance) Hemosiderin Staining -Temperature (Lisa-wound Skin No Abnormality Appearance) (Pt Warm) -Tenderness on Palpation (Lisa-wound No Skin Appearance) -Ulcer Cleansing Wound Cleanser -Foul Odor after Cleansing No -Anesthetic Used 4% Lidocaine Solution [Edema Assessment] -Right Calf (cm) 35 -Right Ankle (cm) 22 -Left Calf (cm) 33.5 -Left Ankle (cm) 21.6 WC - Nurse 2 - General Ulcer CM Notes Start: 12/28/18 08:08 Freq: Status: Active Protocol: Activity Type Activity Date Activity User E-Sign Co-Sign Detail Recorded Client Recorded Date Recorded By Document 01/18/19 08:40 MW [id number] 01/18/19 08:41 MW Document 01/18/19 09:19 AN [id number] 01/18/19 09:37 AN 01/18/19 01/18/19 08:40 09:19 Wound Center Nurse 2 [Procedure/Treatment] #12 left plantar -Time 09:35 -Correct Patient Yes -Correct Side, Site, Position Yes -Correct Procedure Yes -Procedure Performed Yes -Type of Procedure Debridement -Clinical Debridement Subcutaneous -Post Debridement Size (cm) - Length 1.3 -Post Debridement Size (cm) - Width 0.7 -Post Debridement Size (cm) - Depth 0.5 -Total Square Cm 0.91 -Wound/Ulcer Outcome Not Healed -Ulcer Cleansing Rinsed/ Irrigated with Saline -Foul Odor after Cleansing No -Bioengineered Tissue No -Bleeding Controlled with Pressure -Offloading No -Treatment Response Procedure Tolerated Well #11 RIGHT MEDIAL FOOT -Time 09:34 -Correct Patient Yes -Correct Side, Site, Position Yes -Correct Procedure Yes -Procedure Performed Yes -Type of Procedure Debridement -Clinical Debridement Subcutaneous -Post Debridement Size (cm) - Length 11 -Post Debridement Size (cm) - Width 2.4 -Post Debridement Size (cm) - Depth 0.6 -Total Square Cm 26.4 -Wound/Ulcer Outcome Not Healed -Ulcer Cleansing Rinsed/ Irrigated with Saline -Foul Odor after Cleansing No -Bioengineered Tissue No -Bleeding Controlled with Pressure -Offloading No -Treatment Response Procedure Tolerated Well #8 r Knee -Time 08:40 -Correct Patient Yes -Correct Side, Site, Position Yes -Correct Procedure Yes -Procedure Performed Yes -Type of Procedure Debridement -Clinical Debridement Subcutaneous -Post Debridement Size (cm) - Length 0.7 -Post Debridement Size (cm) - Width 0.7 -Post Debridement Size (cm) - Depth 0.1 -Total Square Cm 0.49 -Wound/Ulcer Outcome Not Healed -Ulcer Cleansing Rinsed/ Irrigated with Saline -Foul Odor after Cleansing No -Bioengineered Tissue No -Bleeding Controlled with Pressure -Offloading No -Treatment Response Procedure Not Tolerated Well #6 L Post -Time 09:34 -Correct Patient Yes -Correct Side, Site, Position Yes -Correct Procedure Yes -Procedure Performed Yes -Type of Procedure Debridement -Clinical Debridement Subcutaneous -Post Debridement Size (cm) - Length 21.5 -Post Debridement Size (cm) - Width 2.2 -Post Debridement Size (cm) - Depth 0.6 -Total Square Cm 47.30 -Wound/Ulcer Outcome Not Healed -Ulcer Cleansing Rinsed/ Irrigated with Saline -Foul Odor after Cleansing No -Bioengineered Tissue No -Bleeding Controlled with Pressure -Offloading No -Treatment Response Procedure Tolerated Well #5 R Lat LE -Time 09:34 -Correct Patient Yes -Correct Side, Site, Position Yes -Correct Procedure Yes -Procedure Performed Yes -Type of Procedure Debridement -Clinical Debridement Subcutaneous -Post Debridement Size (cm) - Length 1.8 -Post Debridement Size (cm) - Width 1.5 -Post Debridement Size (cm) - Depth 0.2 -Total Square Cm 2.70 -Wound/Ulcer Outcome Not Healed -Ulcer Cleansing Rinsed/ Irrigated with Saline -Foul Odor after Cleansing No -Bioengineered Tissue No -Bleeding Controlled with Pressure -Offloading No -Treatment Response Procedure Tolerated Well #4 R post LE -Time 09:34 -Correct Patient Yes -Correct Side, Site, Position Yes -Correct Procedure Yes -Procedure Performed Yes -Type of Procedure Debridement -Clinical Debridement Subcutaneous -Post Debridement Size (cm) - Length 2.2 -Post Debridement Size (cm) - Width 2.3 -Post Debridement Size (cm) - Depth 0.3 -Total Square Cm 5.06 -Wound/Ulcer Outcome Not Healed -Ulcer Cleansing Rinsed/ Irrigated with Saline -Foul Odor after Cleansing No -Bioengineered Tissue No -Bleeding Controlled with Pressure -Offloading No -Treatment Response Procedure Tolerated Well #3 R Med LE -Time 09:34 -Correct Patient Yes -Correct Side, Site, Position Yes -Correct Procedure Yes -Procedure Performed Yes -Type of Procedure Debridement -Clinical Debridement Subcutaneous -Post Debridement Size (cm) - Length 2.7 -Post Debridement Size (cm) - Width 1.0 -Post Debridement Size (cm) - Depth 0.3 -Total Square Cm 2.70 -Wound/Ulcer Outcome Not Healed -Ulcer Cleansing Rinsed/ Irrigated with Saline -Foul Odor after Cleansing Yes -Bioengineered Tissue No -Bleeding Controlled with Pressure -Offloading No -Treatment Response Procedure Tolerated Well #2 R [place] Cluster -Time 09:34 -Correct Patient Yes -Correct Side, Site, Position Yes -Correct Procedure Yes -Procedure Performed Yes -Type of Procedure Debridement -Clinical Debridement Subcutaneous -Post Debridement Size (cm) - Length 10 -Post Debridement Size (cm) - Width 2.5 -Post Debridement Size (cm) - Depth 0.2 -Total Square Cm 25.0 -Wound/Ulcer Outcome Not Healed -Foul Odor after Cleansing No -Bioengineered Tissue No -Bleeding Controlled with Pressure -Offloading No -Treatment Response Procedure Tolerated Well #1 R 2nd toe amp -Time 09:34 -Correct Patient Yes -Correct Side, Site, Position Yes -Correct Procedure Yes -Procedure Performed Yes -Type of Procedure Debridement -Clinical Debridement Subcutaneous -Post Debridement Size (cm) - Length 4 -Post Debridement Size (cm) - Width 0.3 -Post Debridement Size (cm) - Depth 1 -Total Square Cm 1.2 -Wound/Ulcer Outcome Not Healed -Ulcer Cleansing Rinsed/ Irrigated with Saline -Foul Odor after Cleansing No -Bioengineered Tissue No -Bleeding Controlled with Pressure -Offloading No -Treatment Response Procedure Tolerated Well [See Physician Procedure note for Specifics] Pain Scale: 0-10 Numeric [Pain] -Is Patient Pain Free? Yes Musculoskeletal: No Tenderness to Palpation of Joints or Extremities, Muscle Wasting, - - Open ray resection site noted right lower extremity. Dorsal contraction of lesser toes in the left foot with prominent metatarsal heads noted Neurological: - - Lack of epicritic sensation light touch consistent with neuropathy bilateral lower extremities Psych/Mental Status: Normal Affect, Appropriate Debridement Note Post-Debridement Measurements/Treatment WC - Nurse 2 - General Ulcer CM Notes Start: 12/28/18 08:08 Freq: Status: Active Protocol: Activity Type Activity Date Activity User E-Sign Co-Sign Detail Recorded Client Recorded Date Recorded By Document 12/28/18 08:42 JF [id number] 12/28/18 08:47 JF Document 12/28/18 09:52 MW [id number] 12/28/18 09:53 MW Document 01/18/19 08:40 MW [id number] 01/18/19 08:41 MW Document 01/18/19 09:19 AN [id number] 01/18/19 09:37 AN 12/28/18 12/28/18 01/18/19 08:42 09:52 08:40 Wound Center Nurse 2 #12 left plantar -Time -Correct Patient -Correct Side, Site, Position -Correct Procedure -Procedure Performed -Type of Procedure -Clinical Debridement -Post Debridement Size (cm) - Length -Post Debridement Size (cm) - Width -Post Debridement Size (cm) - Depth -Total Square Cm -Wound/Ulcer Outcome -Ulcer Cleansing -Foul Odor after Cleansing -Bioengineered Tissue -Bleeding Controlled with -Offloading -Treatment Response #11 RIGHT MEDIAL FOOT -Time 08:43 -Correct Patient Yes -Correct Side, Site, Position Yes -Correct Procedure Yes -Procedure Performed Yes -Type of Procedure Debridement -Clinical Debridement Subcutaneous -Post Debridement Size (cm) - Length 14.4 -Post Debridement Size (cm) - Width 2.5 -Post Debridement Size (cm) - Depth 0.6 -Total Square Cm 36.00 -Wound/Ulcer Outcome Not Healed -Ulcer Cleansing Rinsed/ Irrigated with Saline -Foul Odor after Cleansing No -Bioengineered Tissue No -Bleeding Controlled with Pressure -Offloading No -Treatment Response Procedure Tolerated Well #8 r Knee -Time 09:52 08:40 -Correct Patient No Yes Yes -Correct Side, Site, Position No Yes Yes -Correct Procedure No Yes Yes -Procedure Performed No Yes Yes -Type of Procedure Debridement Debridement -Clinical Debridement Subcutaneous Subcutaneous -Post Debridement Size (cm) - Length 0.7 0.7 -Post Debridement Size (cm) - Width 0.8 0.7 -Post Debridement Size (cm) - Depth 0.2 0.1 -Total Square Cm 0.56 0.49 -Wound/Ulcer Outcome Not Healed Not Healed -Ulcer Cleansing Rinsed/ Rinsed/ Irrigated with Irrigated with Saline Saline -Foul Odor after Cleansing No No -Bioengineered Tissue No No -Bleeding Controlled with Pressure Pressure -Offloading No No -Treatment Response Procedure Procedure Not Tolerated Well Tolerated Well #6 L Post -Time 08:44 -Correct Patient Yes -Correct Side, Site, Position Yes -Correct Procedure Yes -Procedure Performed Yes -Type of Procedure Debridement -Clinical Debridement Subcutaneous -Post Debridement Size (cm) - Length 21.5 -Post Debridement Size (cm) - Width 1.6 -Post Debridement Size (cm) - Depth 0.3 -Total Square Cm 34.40 -Wound/Ulcer Outcome Not Healed -Ulcer Cleansing Rinsed/ Irrigated with Saline -Foul Odor after Cleansing No -Bioengineered Tissue No -Bleeding Controlled with Pressure -Offloading No -Treatment Response Procedure Tolerated Well #5 R Lat LE -Time 08:44 -Correct Patient Yes -Correct Side, Site, Position Yes -Correct Procedure Yes -Procedure Performed Yes -Type of Procedure Debridement -Clinical Debridement Subcutaneous -Post Debridement Size (cm) - Length 2.1 -Post Debridement Size (cm) - Width 1.3 -Post Debridement Size (cm) - Depth 0.1 -Total Square Cm 2.73 -Wound/Ulcer Outcome Not Healed -Ulcer Cleansing Rinsed/ Irrigated with Saline -Foul Odor after Cleansing No -Bioengineered Tissue No -Bleeding Controlled with Pressure -Offloading No -Treatment Response Procedure Tolerated Well #4 R post LE -Time 08:44 -Correct Patient Yes -Correct Side, Site, Position Yes -Correct Procedure Yes -Procedure Performed Yes -Type of Procedure Debridement -Clinical Debridement Subcutaneous -Post Debridement Size (cm) - Length 2.1 -Post Debridement Size (cm) - Width 1.8 -Post Debridement Size (cm) - Depth 0.3 -Total Square Cm 3.78 -Wound/Ulcer Outcome Not Healed -Ulcer Cleansing Rinsed/ Irrigated with Saline -Foul Odor after Cleansing No -Bioengineered Tissue No -Bleeding Controlled with Pressure -Offloading No -Treatment Response Procedure Tolerated Well #3 R Med LE -Time 08:45 -Correct Patient Yes -Correct Side, Site, Position Yes -Correct Procedure Yes -Procedure Performed Yes -Type of Procedure Debridement -Clinical Debridement Subcutaneous -Post Debridement Size (cm) - Length 1.6 -Post Debridement Size (cm) - Width 0.5 -Post Debridement Size (cm) - Depth 0.4 -Total Square Cm 0.80 -Wound/Ulcer Outcome Not Healed -Ulcer Cleansing Rinsed/ Irrigated with Saline -Foul Odor after Cleansing No -Bioengineered Tissue No -Bleeding Controlled with Pressure -Offloading No -Treatment Response Procedure Tolerated Well #2 R [place] Cluster -Time 08:45 -Correct Patient Yes -Correct Side, Site, Position Yes -Correct Procedure Yes -Procedure Performed Yes -Type of Procedure Debridement -Clinical Debridement Subcutaneous -Post Debridement Size (cm) - Length 10 -Post Debridement Size (cm) - Width 3.1 -Post Debridement Size (cm) - Depth 0.2 -Total Square Cm 31.0 -Wound/Ulcer Outcome Not Healed -Ulcer Cleansing Rinsed/ Irrigated with Saline -Foul Odor after Cleansing No -Bioengineered Tissue No -Bleeding Controlled with Pressure -Offloading No -Treatment Response Procedure Tolerated Well #1 R 2nd toe amp -Time 08:45 -Correct Patient Yes -Correct Side, Site, Position Yes -Correct Procedure Yes -Procedure Performed Yes -Type of Procedure Debridement -Clinical Debridement Subcutaneous -Post Debridement Size (cm) - Length 3.2 -Post Debridement Size (cm) - Width 1 -Post Debridement Size (cm) - Depth 0.1 -Total Square Cm 3.2 -Wound/Ulcer Outcome Not Healed -Ulcer Cleansing Rinsed/ Irrigated with Saline -Foul Odor after Cleansing No -Bioengineered Tissue No -Bleeding Controlled with Pressure -Offloading No -Treatment Response Procedure Tolerated Well Pain Scale: 0-10 Numeric Is Patient Pain Free? Yes Yes 01/18/19 09:19 Wound Center Nurse 2 #12 left plantar -Time 09:35 -Correct Patient Yes -Correct Side, Site, Position Yes -Correct Procedure Yes -Procedure Performed Yes -Type of Procedure Debridement -Clinical Debridement Subcutaneous -Post Debridement Size (cm) - Length 1.3 -Post Debridement Size (cm) - Width 0.7 -Post Debridement Size (cm) - Depth 0.5 -Total Square Cm 0.91 -Wound/Ulcer Outcome Not Healed -Ulcer Cleansing Rinsed/ Irrigated with Saline -Foul Odor after Cleansing No -Bioengineered Tissue No -Bleeding Controlled with Pressure -Offloading No -Treatment Response Procedure Tolerated Well #11 RIGHT MEDIAL FOOT -Time 09:34 -Correct Patient Yes -Correct Side, Site, Position Yes -Correct Procedure Yes -Procedure Performed Yes -Type of Procedure Debridement -Clinical Debridement Subcutaneous -Post Debridement Size (cm) - Length 11 -Post Debridement Size (cm) - Width 2.4 -Post Debridement Size (cm) - Depth 0.6 -Total Square Cm 26.4 -Wound/Ulcer Outcome Not Healed -Ulcer Cleansing Rinsed/ Irrigated with Saline -Foul Odor after Cleansing No -Bioengineered Tissue No -Bleeding Controlled with Pressure -Offloading No -Treatment Response Procedure Tolerated Well #8 r Knee -Time -Correct Patient -Correct Side, Site, Position -Correct Procedure -Procedure Performed -Type of Procedure -Clinical Debridement -Post Debridement Size (cm) - Length -Post Debridement Size (cm) - Width -Post Debridement Size (cm) - Depth -Total Square Cm -Wound/Ulcer Outcome -Ulcer Cleansing -Foul Odor after Cleansing -Bioengineered Tissue -Bleeding Controlled with -Offloading -Treatment Response #6 L Post -Time 09:34 -Correct Patient Yes -Correct Side, Site, Position Yes -Correct Procedure Yes -Procedure Performed Yes -Type of Procedure Debridement -Clinical Debridement Subcutaneous -Post Debridement Size (cm) - Length 21.5 -Post Debridement Size (cm) - Width 2.2 -Post Debridement Size (cm) - Depth 0.6 -Total Square Cm 47.30 -Wound/Ulcer Outcome Not Healed -Ulcer Cleansing Rinsed/ Irrigated with Saline -Foul Odor after Cleansing No -Bioengineered Tissue No -Bleeding Controlled with Pressure -Offloading No -Treatment Response Procedure Tolerated Well #5 R Lat LE -Time 09:34 -Correct Patient Yes -Correct Side, Site, Position Yes -Correct Procedure Yes -Procedure Performed Yes -Type of Procedure Debridement -Clinical Debridement Subcutaneous -Post Debridement Size (cm) - Length 1.8 -Post Debridement Size (cm) - Width 1.5 -Post Debridement Size (cm) - Depth 0.2 -Total Square Cm 2.70 -Wound/Ulcer Outcome Not Healed -Ulcer Cleansing Rinsed/ Irrigated with Saline -Foul Odor after Cleansing No -Bioengineered Tissue No -Bleeding Controlled with Pressure -Offloading No -Treatment Response Procedure Tolerated Well #4 R post LE -Time 09:34 -Correct Patient Yes -Correct Side, Site, Position Yes -Correct Procedure Yes -Procedure Performed Yes -Type of Procedure Debridement -Clinical Debridement Subcutaneous -Post Debridement Size (cm) - Length 2.2 -Post Debridement Size (cm) - Width 2.3 -Post Debridement Size (cm) - Depth 0.3 -Total Square Cm 5.06 -Wound/Ulcer Outcome Not Healed -Ulcer Cleansing Rinsed/ Irrigated with Saline -Foul Odor after Cleansing No -Bioengineered Tissue No -Bleeding Controlled with Pressure -Offloading No -Treatment Response Procedure Tolerated Well #3 R Med LE -Time 09:34 -Correct Patient Yes -Correct Side, Site, Position Yes -Correct Procedure Yes -Procedure Performed Yes -Type of Procedure Debridement -Clinical Debridement Subcutaneous -Post Debridement Size (cm) - Length 2.7 -Post Debridement Size (cm) - Width 1.0 -Post Debridement Size (cm) - Depth 0.3 -Total Square Cm 2.70 -Wound/Ulcer Outcome Not Healed -Ulcer Cleansing Rinsed/ Irrigated with Saline -Foul Odor after Cleansing Yes -Bioengineered Tissue No -Bleeding Controlled with Pressure -Offloading No -Treatment Response Procedure Tolerated Well #2 R [place] Cluster -Time 09:34 -Correct Patient Yes -Correct Side, Site, Position Yes -Correct Procedure Yes -Procedure Performed Yes -Type of Procedure Debridement -Clinical Debridement Subcutaneous -Post Debridement Size (cm) - Length 10 -Post Debridement Size (cm) - Width 2.5 -Post Debridement Size (cm) - Depth 0.2 -Total Square Cm 25.0 -Wound/Ulcer Outcome Not Healed -Ulcer Cleansing -Foul Odor after Cleansing No -Bioengineered Tissue No -Bleeding Controlled with Pressure -Offloading No -Treatment Response Procedure Tolerated Well #1 R 2nd toe amp -Time 09:34 -Correct Patient Yes -Correct Side, Site, Position Yes -Correct Procedure Yes -Procedure Performed Yes -Type of Procedure Debridement -Clinical Debridement Subcutaneous -Post Debridement Size (cm) - Length 4 -Post Debridement Size (cm) - Width 0.3 -Post Debridement Size (cm) - Depth 1 -Total Square Cm 1.2 -Wound/Ulcer Outcome Not Healed -Ulcer Cleansing Rinsed/ Irrigated with Saline -Foul Odor after Cleansing No -Bioengineered Tissue No -Bleeding Controlled with Pressure -Offloading No -Treatment Response Procedure Tolerated Well Pain Scale: 0-10 Numeric Is Patient Pain Free? Yes Wound debrided: plantar foot Laterality: Left Wound Grade/Stage: grade 1 Type of Debridement: Excisional debridement Anesthesia Used: 5% Lidocaine Gel Depth: in the subcutaneous layer Percentage of wound debrided: 100 Instrument Used: #15 blade Tissue Removed: fibrous, devitalized subcutaneous, biofilm, slough Severity: Fat Layer Exposed Amount of bleeding with debridement: Mild Bleeding Controlled with: Pressure Patient tolerated procedure well - Additional Wound Wound debrided: posterior leg Laterality: Left Wound Grade/Stage: grade 2 Type of Debridement: Excisional debridement Anesthesia Used: 5% Lidocaine Gel Depth: in the subcutaneous layer Percentage of wound debrided: 100 Instrument Used: #15 blade Tissue Removed: fibrous, devitalized subcutaneous, biofilm, slough Severity: Fat Layer Exposed Amount of bleeding with debridement: Mild Bleeding Controlled with: Pressure Patient tolerated procedure: Patient tolerated procedure well - Additional Wound Wound debrided: forefoot Laterality: Right Wound Grade/Stage: grade 3 Type of Debridement: Excisional debridement Anesthesia Used: 5% Lidocaine Gel Depth: in the subcutaneous layer Percentage of wound debrided: 100 Instrument Used: #15 blade Tissue Removed: fibrous, devitalized subcutaneous, biofilm, slough Severity: Fat Layer Exposed Amount of bleeding with debridement: Mild Bleeding Controlled with: Pressure Patient tolerated procedure: Patient tolerated procedure well - Additional Wound Wound debrided: medial foot Laterality: Right Wound Grade/Stage: grade 3 Type of Debridement: Excisional debridement Anesthesia Used: 5% Lidocaine Gel Depth: in the subcutaneous layer Percentage of wound debrided: 100 Instrument Used: #15 blade Tissue Removed: fibrous, devitalized subcutaneous, biofilm, slough Severity: Fat Layer Exposed Amount of bleeding with debridement: Mild Bleeding Controlled with: Pressure Patient tolerated procedure: Patient tolerated procedure well - Additional Wound Wound debrided: anterior leg Laterality: Right Wound Grade/Stage: grade 1 Type of Debridement: Excisional debridement Anesthesia Used: 5% Lidocaine Gel Depth: in the subcutaneous layer Percentage of wound debrided: 100 Instrument Used: #15 blade Tissue Removed: fibrous, devitalized subcutaneous, biofilm, slough Severity: Fat Layer Exposed Amount of bleeding with debridement: Mild Bleeding Controlled with: Pressure Patient tolerated procedure: Patient tolerated procedure well - Additional Wound Wound debrided: posterior leg Laterality: Right Wound Grade/Stage: grade 1 Type of Debridement: Excisional debridement Anesthesia Used: 5% Lidocaine Gel Depth: in the subcutaneous layer Percentage of wound debrided: 100 Instrument Used: #15 blade Tissue Removed: fibrous, devitalized subcutaneous, biofilm, slough Severity: Fat Layer Exposed Amount of bleeding with debridement: Mild Bleeding Controlled with: Pressure Patient tolerated procedure: Patient tolerated procedure well - Additional Wound Wound debrided: medial leg Laterality: Right Wound Grade/Stage: grade 1 Type of Debridement: Excisional debridement Anesthesia Used: 5% Lidocaine Gel Depth: in the subcutaneous layer Percentage of wound debrided: 100 Instrument Used: #15 blade Tissue Removed: fibrous, devitalized subcutaneous, biofilm, slough Severity: Fat Layer Exposed Amount of bleeding with debridement: Mild Bleeding Controlled with: Pressure Patient tolerated procedure: Patient tolerated procedure well - Additional Wound Wound debrided: lateral leg Laterality: Right Wound Grade/Stage: grade 1 Type of Debridement: Excisional debridement Anesthesia Used: 5% Lidocaine Gel Depth: in the subcutaneous layer Percentage of wound debrided: 100 Instrument Used: #15 blade Tissue Removed: fibrous, devitalized subcutaneous, biofilm, slough Severity: Fat Layer Exposed Amount of bleeding with debridement: Mild Bleeding Controlled with: Pressure Patient tolerated procedure: Patient tolerated procedure well Assessment/Plan Active Problems (Last Updated 09/28/18 @ 12:41 by Geraldine Steele) Ulcer of right foot with fat layer exposed (Chronic) 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) Ulcer of right lower extremity with fat layer exposed (Chronic) 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) Skin ulcer of right knee with fat layer exposed (Chronic) Delayed wound healing (Chronic) 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) Type 2 diabetes mellitus with diabetic polyneuropathy (Chronic) Localized edema (Chronic) Malnutrition (Chronic) DM2 (diabetes mellitus, type 2) (Chronic) Assessment: Open second and third ray resection secondary to 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 Diabetic neuropathy. Malnutrition suspected. 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 Delayed healing. Gait impairment and fall risk. Other comorbidities, right knee ulcer Plan: I reviewed and discussed his case today. He was reassured no infections are noted. His new ulcer to the left foot is noted and this was addressed today. Debridement done as documented above in the nursing clinical panel. Procedure was well-tolerated. Continue Promogran with Adaptic over the top. Change every third day. Elevate lower extremities when seated and in bed. Continue increased protein intake. I recommend he avoids laying directly on his wounds to reduce pressure, and I was concerned about his perfusion to his limbs. He had an arterial Doppler scheduled with Dr. Morgan's staff on August 02, 2018 and overall perfusion was confirmed; additional intervention or workup was not recommended. It is also noted that he did have venous Doppler performed with reflux evaluation. He did not have evidence of deep venous thrombosis or venous insufficiency at that time; the vessels were compressible. To continue with nutritional supplementation optimize healing; I recommend Juan. I recommend he sustained from smoking and alcohol activities to optimize healing as well. His workup for vasculitis and underlying autoimmune disorder is also pending. A punch biopsy was sent during his last surgical intervention on June 10 and this demonstrated inflammatory changes without malignancy. He had initial screening labs and so far he has a negative RA titer, HL of the 27, KEVIN, anti-CCP, and rheumatoid factor. Several his antibody screenings were not reportable. Hyperbaric oxygen therapy was recommended and it is noted his ejection fraction was most recently 50%. He refuses at this time. Dr. Gilbert continues to manage his right knee ulcer including debridements and traditional wound care plan. He refuses surgical intervention at this time to bilateral l ower extremities. I answered all of his questions. Additional amputation of the right foot is not planned due to his fairly nonambulatory status. Smoking cessation was discussed in detail again today and compliance is imperative to optimize healing of surgical success. He reports he is cutting back. I recommend further follow-up at the wound care center 1 week with me, or call sooner if he has any questions. Compliance at this advanced wound care center was reviewed. He understands additional palliative care programs are an option if he does not wish to proceed with advanced wound care opportunities that has been recommended. 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
== END 2019-01-19 23:59 ==
LOC: WC 08:00
PROVIDERS: Family Provider Family Medicine; PCP Family Medicine; Visit Provider Podiatrist
DX: E11.621 Type 2 diabetes mellitus with foot ulcer (principal); L97.812 Non-pressure chronic ulcer of other part of right lower leg with fat layer exposed; L97.512 Non-pressure chronic ulcer of other part of right foot with fat layer exposed; E11.622 Type 2 diabetes mellitus with other skin ulcer; E11.42 Type 2 diabetes mellitus with diabetic polyneuropathy; E11.51 Type 2 diabetes mellitus with diabetic peripheral angiopathy without gangrene; R60.0 Localized edema; L97.822 Non-pressure chronic ulcer of other part of left lower leg with fat layer exposed; L97.412 Non-pressure chronic ulcer of right heel and midfoot with fat layer exposed
CPT/HCPCS: 11042; 11045

== ENCOUNTER 2019-02-15 09:15 | Outpatient (RCR) | payer MEDICARE, SELFPAY ==
[2019-01-20 00:57] VITALS: BP 137/85; PULSE 90; RESP 18; TEMP 36.1
[2019-02-01 08:12] VITALS: BP 134/88; PULSE 103; RESP 18; TEMP 36.3
--- NOTE | 2019-02-01 09:03 | PN.PCM_ITS ---
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 Arguello is a 63-year-old male with multiple comorbidities follows up for delayed healing ulcers to the right foot as well as bilateral leg s. It is noted he previously had widespread debridements and fasciotomies performed to bilateral lower extremities secondary to life-threatening and limb threatening infection; this was previously performed at [facility]. He continues to follow with Dr. Gilbert for his right knee ulcer. He denies chills, fever or otherwise feeling of unwell. He presents today with his . He still refuses advanced wound care product application. He refuses hyperbaric oxygen therapy treatment. He elects to proceed with a palliative care plan because he is refusing the other treatment recommendations. He missed his last appointment due to dangerous weather. He does have a new blister to the left foot with an onset of 3 weeks ago. He denies drainage however there is discoloration. He denies pain. He denies redness or odor from the site. He denies a traumatic accident. He reports he places more weight on his left foot and attempt to keep pressure off of the right limb. Progress of Wound: Stable. No new concerns at this time. - Physical Exam Vital Signs Temp Pulse Resp BP 97.3 F L 103 H 18 134/88 H 02/01/19 08:12 02/01/19 08:12 02/01/19 08:12 02/01/19 08:12 General: Alert, Oriented x3, Cooperative, No apparent distress HEENT: Atraumatic, Normocephalic Oral: Moist Mucosa Neck: Supple Extremities: No cyanosis Skin: Ulcer/ Wound Wound Measurements and Assessment WC - Nurse 1 - General Ulcer Measurement Start: 02/01/19 08:12 Freq: Status: Active Protocol: Activity Type Activity Date Activity User E-Sign Co-Sign Detail Recorded Client Recorded Date Recorded By Document 02/01/19 08:12 MW [id number] 02/01/19 08:48 MW 02/01/19 08:12 Wound Center Nurse 1 [Ulcer Assessment] #12 left plantar -Combined with other wound No -Current Size (cm) - Length 0.1 -Current Size (cm) - Width 0.1 -Current Size (cm) - Depth 0.1 -Total Square Cm 0.01 -Photo Taken No -Epithelialization None Present -Tunneling No -Undermining/Tunneling No -Circular Undermining No -Exudate Amt None Present -Granulation Amt None Present (0 %) -Granulation Quality N/A -Slough/Fibrin No -Necrosis Amt None Present (0 %) -Necrotic Tissue Type Adherent Slough -Structure Exposed N/A -Texture (Lisa-wound Skin Appearance) Assessed Scarring -Moisture (Lisa-wound Skin Appearance Assessed ) Dry/Scaly -Color (Lisa-wound Skin Appearance) No Abnormality Assessed -Temperature (Lisa-wound Skin No Abnormality Appearance) (Pt Warm) -Tenderness on Palpation (Lisa-wound No Skin Appearance) -Ulcer Cleansing soap and water -Foul Odor after Cleansing No -Anesthetic Used 5% Lidocaine Gel #11 RIGHT MEDIAL FOOT -Combined with other wound No -Current Size (cm) - Length 13.2 -Current Size (cm) - Width 2.3 -Current Size (cm) - Depth 1.2 -Total Square Cm 30.36 -Photo Taken No -Epithelialization None Present -Tunneling No -Undermining/Tunneling No -Circular Undermining No -Exudate Amt Medium -Exudate Type Yellow/Green -Wound Margin Distinct, Outline Attached -Granulation Amt None Present (0 %) -Granulation Quality N/A -Slough/Fibrin Yes -Necrosis Amt Large (67-100%) -Necrotic Tissue Type Adherent Slough -Structure Exposed N/A -Texture (Lisa-wound Skin Appearance) Assessed Scarring -Moisture (Lisa-wound Skin Appearance Assessed ) Dry/Scaly -Color (Lisa-wound Skin Appearance) Assessed Rubor -Temperature (Lisa-wound Skin No Abnormality Appearance) (Pt Warm) -Tenderness on Palpation (Lisa-wound No Skin Appearance) -Ulcer Cleansing soap and water -Foul Odor after Cleansing No -Anesthetic Used 5% Lidocaine Gel #8 r Knee -Combined with other wound No -Current Size (cm) - Length 0.8 -Current Size (cm) - Width 0.6 -Current Size (cm) - Depth 0.1 -Total Square Cm 0.48 -Photo Taken No -Epithelialization Small 1-33% -Tunneling No -Undermining/Tunneling No -Circular Undermining No -Exudate Amt Small -Exudate Type Yellow/Green -Wound Margin Thickened & Rolled Under -Granulation Amt None Present (0 %) -Granulation Quality N/A -Slough/Fibrin Yes -Necrosis Amt Small (1-33%) -Necrotic Tissue Type Adherent Slough -Structure Exposed None/Limited to Skin Breakdown -Texture (Lisa-wound Skin Appearance) Assessed Scarring -Moisture (Lisa-wound Skin Appearance No Abnormality ) Assessed -Color (Lisa-wound Skin Appearance) No Abnormality Assessed -Temperature (Lisa-wound Skin No Abnormality Appearance) (Pt Warm) -Ulcer Cleansing Rinsed/ Irrigated with Saline -Foul Odor after Cleansing No -Anesthetic Used 5% Lidocaine Gel #6 L Post -Combined with other wound No -Current Size (cm) - Length 15.5 -Current Size (cm) - Width 2.0 -Current Size (cm) - Depth 0.6 -Total Square Cm 31.00 -Photo Taken No -Epithelialization None Present -Tunneling No -Undermining/Tunneling No -Circular Undermining No -Exudate Amt Medium -Exudate Type Serosanguineous -Wound Margin Distinct, Outline Attached -Granulation Amt None Present (0 %) -Granulation Quality N/A -Necrosis Amt Large (67-100%) -Necrotic Tissue Type Adherent Slough -Structure Exposed N/A -Texture (Lisa-wound Skin Appearance) Assessed Scarring -Moisture (Lisa-wound Skin Appearance Assessed ) Dry/Scaly -Color (Lisa-wound Skin Appearance) Assessed Rubor -Temperature (Lisa-wound Skin No Abnormality Appearance) (Pt Warm) -Tenderness on Palpation (Lisa-wound No Skin Appearance) -Ulcer Cleansing soap and water -Foul Odor after Cleansing No -Anesthetic Used 5% Lidocaine Gel #5 R Lat LE -Combined with other wound No -Current Size (cm) - Length 1.5 -Current Size (cm) - Width 1.5 -Current Size (cm) - Depth 0.1 -Total Square Cm 2.25 -Photo Taken No -Epithelialization None Present -Tunneling No -Undermining/Tunneling No -Circular Undermining No -Exudate Amt Medium -Exudate Type Serosanguineous -Wound Margin Flat & Intact -Granulation Amt None Present (0 %) -Granulation Quality N/A -Slough/Fibrin Yes -Necrosis Amt Large (67-100%) -Necrotic Tissue Type Adherent Slough -Structure Exposed N/A -Texture (Lisa-wound Skin Appearance) Assessed Localized Edema Scarring -Moisture (Lisa-wound Skin Appearance Assessed ) Dry/Scaly -Color (Lisa-wound Skin Appearance) Assessed Rubor -Temperature (Lisa-wound Skin No Abnormality Appearance) (Pt Warm) -Tenderness on Palpation (Lisa-wound No Skin Appearance) -Ulcer Cleansing soap and water -Foul Odor after Cleansing No -Anesthetic Used 5% Lidocaine Gel #4 R post LE -Combined with other wound No -Current Size (cm) - Length 2.7 -Current Size (cm) - Width 2.0 -Current Size (cm) - Depth 0.1 -Total Square Cm 5.40 -Photo Taken No -Epithelialization None Present -Tunneling No -Undermining/Tunneling No -Circular Undermining No -Exudate Amt Medium -Exudate Type Serosanguineous -Wound Margin Distinct, Outline Attached -Granulation Amt None Present (0 %) -Granulation Quality N/A -Slough/Fibrin Yes -Necrosis Amt Large (67-100%) -Structure Exposed N/A -Texture (Lisa-wound Skin Appearance) Assessed Scarring -Moisture (Lisa-wound Skin Appearance Assessed ) Dry/Scaly -Color (Lisa-wound Skin Appearance) Assessed Rubor -Temperature (Lisa-wound Skin No Abnormality Appearance) (Pt Warm) -Tenderness on Palpation (Lisa-wound No Skin Appearance) -Ulcer Cleansing soap and water -Foul Odor after Cleansing No -Anesthetic Used 5% Lidocaine Gel #3 R Med LE -Combined with other wound No -Current Size (cm) - Length 3.0 -Current Size (cm) - Width 1.0 -Current Size (cm) - Depth 0.1 -Total Square Cm 3.00 -Photo Taken No -Epithelialization None Present -Tunneling No -Undermining/Tunneling No -Circular Undermining No -Exudate Amt Medium -Exudate Type Serosanguineous -Wound Margin Flat & Intact -Granulation Amt None Present (0 %) -Granulation Quality N/A -Slough/Fibrin Yes -Necrosis Amt Large (67-100%) -Necrotic Tissue Type Adherent Slough -Structure Exposed N/A -Texture (Lisa-wound Skin Appearance) Assessed Scarring -Moisture (Lisa-wound Skin Appearance Assessed ) Dry/Scaly -Color (Lisa-wound Skin Appearance) Assessed Rubor -Temperature (Lisa-wound Skin No Abnormality Appearance) (Pt Warm) -Tenderness on Palpation (Lisa-wound No Skin Appearance) -Ulcer Cleansing soap and water -Foul Odor after Cleansing No -Anesthetic Used 5% Lidocaine Gel #2 R Orellana Cluster -Combined with other wound No -Current Size (cm) - Length 9.6 -Current Size (cm) - Width 2.5 -Current Size (cm) - Depth 0.2 -Total Square Cm 24.00 -Photo Taken No -Epithelialization None Present -Tunneling No -Undermining/Tunneling No -Circular Undermining No -Exudate Amt Medium -Exudate Type Serosanguineous -Wound Margin Distinct, Outline Attached -Granulation Quality N/A -Slough/Fibrin Yes -Necrosis Amt Large (67-100%) -Necrotic Tissue Type Adherent Slough -Structure Exposed N/A -Texture (Lisa-wound Skin Appearance) Scarring -Moisture (Lisa-wound Skin Appearance Assessed ) Dry/Scaly -Color (Lisa-wound Skin Appearance) Assessed Rubor -Temperature (Lisa-wound Skin No Abnormality Appearance) (Pt Warm) -Tenderness on Palpation (Lisa-wound No Skin Appearance) -Ulcer Cleansing soap and water -Foul Odor after Cleansing No -Anesthetic Used 5% Lidocaine Gel #1 R 2nd toe amp -Combined with other wound No -Current Size (cm) - Length 3.0 -Current Size (cm) - Width 1.8 -Current Size (cm) - Depth 0.1 -Total Square Cm 5.40 -Photo Taken No -Epithelialization None Present -Tunneling No -Undermining/Tunneling No -Circular Undermining No -Exudate Amt Small -Exudate Type Serosanguineous -Wound Margin Distinct, Outline Attached -Granulation Amt Small (1-33%) -Granulation Quality N/A -Slough/Fibrin Yes -Necrosis Amt Large (67-100%) -Necrotic Tissue Type Adherent Slough -Structure Exposed N/A -Texture (Lisa-wound Skin Appearance) Assessed Scarring -Moisture (Lisa-wound Skin Appearance Assessed ) Dry/Scaly -Color (Lisa-wound Skin Appearance) Assessed -Temperature (Lisa-wound Skin No Abnormality Appearance) (Pt Warm) -Tenderness on Palpation (Lisa-wound No Skin Appearance) -Ulcer Cleansing soap and water -Foul Odor after Cleansing No -Anesthetic Used 5% Lidocaine Gel [Edema Assessment] -Lower Limb Edema Present Yes -Right Calf (cm) 34.3 -Right Ankle (cm) 24.0 -Left Calf (cm) 35.0 -Left Ankle (cm) 21.0 Musculoskeletal: No Muscle Wasting Neurological: Cranial nerves II-XII grossly intact Psych/Mental Status: Normal Affect Debridement Note Wound debrided: Right knee Wound Grade/Stage: Stage III Type of Debridement: Excisional debridement Anesthesia Used: 4% Lidocaine Solution Depth: Down to and including healthy tissue, in the subcutaneous layer Percentage of wound debrided: 100 Instrument Used: 3mm curette Tissue Removed: Slough and devitalized tissue Severity: Fat Layer Exposed Amount of bleeding with debridement: Mild Bleeding Controlled with: Pressure Patient tolerated procedure well Assessment/Plan Active Problems (Last Updated 09/28/18 @ 12:41 by Geraldine Steele) Skin ulcer of right knee with fat layer exposed (Chronic) Assessment: Open second and third ray resection secondary to 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 Diabetic neuropathy. Malnutrition suspected. 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 Delayed healing. Gait impairment and fall risk. Other comorbidities, right knee ulcer Plan: No significnat change. Good granulation tissue however. Debridement done as documented above, procedure was well tolerated. Continue pomogran with adaptic over top. Change every third day. Elevate lower extremities when seated and in bed. Increased protein intake recommended. Continue other wound care / management per Dr. Gruber. Follow up in 2 weeks. Patient is currently under pallative wound care. He was advised to call with any questions or concerns.
--- NOTE | 2019-02-01 09:39 | PN.PCM_ITS ---
(1) Ulcer of right lower extremity with fat layer exposed Status: Chronic Current Visit: Yes Code(s): L97.912 - Non-pressure chronic ulcer of unspecified part of right lower leg with fat layer exposed (2) Ulcer of left lower extremity with fat layer exposed Status: Chronic Current Visit: Yes Code(s): L97.922 - Non-pressure chronic ulcer of unspecified part of left lower leg with fat layer exposed (3) Ulcer of right foot with fat layer exposed Status: Chronic Current Visit: Yes Code(s): L97.512 - Non-pressure chronic ulcer of other part of right foot with fat layer exposed (4) Delayed wound healing Status: Chronic Current Visit: Yes Code(s): T14.8XXD - Other injury of unspecified body region, subsequent encounter (5) Malnutrition Status: Chronic Current Visit: Yes Code(s): E46 - Unspecified protein- calorie malnutrition (6) Type 2 diabetes mellitus with diabetic polyneuropathy Status: Chronic Current Visit: Yes Code(s): E11.42 - Type 2 diabetes mellitus with diabetic polyneuropathy Type of Wound Chief Complaint: right and left Leg ulcers and right foot ulcer History of Wound: Mr. Arguello is a 63-year-old male with multiple comorbidities follows up for delayed healing ulcers to the right foot as well as bilateral legs. It is noted he previously had widespread debridements and fasciotomies performed to bilateral lower extremities secondary to life-threatening and limb threatening infection; this was previously performed at [facility]. He continues to follow with Dr. Gilbert for his right knee ulcer. He denies chills, fever or otherwise feeling of unwell. He presents today with his . He still refuses advanced wound care product application. He refuses hyperbaric oxygen therapy treatment. He elects to proceed with a palliative care plan because he is refusing the other treatment recommendations. He missed his last appointment due to dangerous weather. He does have a new blister to the left foot with an onset of 3 weeks ago. He denies drainage however there is discoloration. He denies pain. He denies redness or odor from the site. He denies a traumatic accident. He reports he places more weight on his left foot and attempt to keep pressure off of the right limb. Progress of Wound: Stable. No new concerns at this time. - Physical Exam Vital Signs Temp Pulse Resp BP 97.3 F L 103 H 18 134/88 H 02/01/19 08:12 02/01/19 08:12 02/01/19 08:12 02/01/19 08:12 General: Alert, Oriented x3, Cooperative Extremities: No cyanosis, Capillary Refill Less than 3 Seconds, No Calf Tenderness - Negative Errol and Lobato sign bilateral, Diminished Peripheral Puls es, Edema - mild Skin: Ulcer/ Wound - No purulence, erythema, streaking, odor, or infection. There is improved granulation tissue and peripheral epithelialization noted to the ulcers, - - The skin is hairless and atrophic bilateral Wound Measurements and Assessment WC - Nurse 1 - General Ulcer Measurement Start: 02/01/19 08:12 Freq: Status: Active Protocol: Activity Type Activity Date Activity User E-Sign Co-Sign Detail Recorded Client Recorded Date Recorded By Document 02/01/19 08:12 MW [id number] 02/01/19 08:48 MW 02/01/19 08:12 Wound Center Nurse 1 [Ulcer Assessment] #12 left plantar -Combined with other wound No -Current Size (cm) - Length 0.1 -Current Size (cm) - Width 0.1 -Current Size (cm) - Depth 0.1 -Total Square Cm 0.01 -Photo Taken No -Epithelialization None Present -Tunneling No -Undermining/Tunneling No -Circular Undermining No -Exudate Amt None Present -Granulation Amt None Present (0 %) -Granulation Quality N/A -Slough/Fibrin No -Necrosis Amt None Present (0 %) -Necrotic Tissue Type Adherent Slough -Structure Exposed N/A -Texture (Lisa-wound Skin Appearance) Assessed Scarring -Moisture (Lisa-wound Skin Appearance Assessed ) Dry/Scaly -Color (Lisa-wound Skin Appearance) No Abnormality Assessed -Temperature (Lisa-wound Skin No Abnormality Appearance) (Pt Warm) -Tenderness on Palpation (Lisa-wound No Skin Appearance) -Ulcer Cleansing soap and water -Foul Odor after Cleansing No -Anesthetic Used 5% Lidocaine Gel #11 RIGHT MEDIAL FOOT -Combined with other wound No -Current Size (cm) - Length 13.2 -Current Size (cm) - Width 2.3 -Current Size (cm) - Depth 1.2 -Total Square Cm 30.36 -Photo Taken No -Epithelialization None Present -Tunneling No -Undermining/Tunneling No -Circular Undermining No -Exudate Amt Medium -Exudate Type Yellow/Green -Wound Margin Distinct, Outline Attached -Granulation Amt None Present (0 %) -Granulation Quality N/A -Slough/Fibrin Yes -Necrosis Amt Large (67-100%) -Necrotic Tissue Type Adherent Slough -Structure Exposed N/A -Texture (Lisa-wound Skin Appearance) Assessed Scarring -Moisture (Lisa-wound Skin Appearance Assessed ) Dry/Scaly -Color (Lisa-wound Skin Appearance) Assessed Rubor -Temperature (Lisa-wound Skin No Abnormality Appearance) (Pt Warm) -Tenderness on Palpation (Lisa-wound No Skin Appearance) -Ulcer Cleansing soap and water -Foul Odor after Cleansing No -Anesthetic Used 5% Lidocaine Gel #8 r Knee -Combined with other wound No -Current Size (cm) - Length 0.8 -Current Size (cm) - Width 0.6 -Current Size (cm) - Depth 0.1 -Total Square Cm 0.48 -Photo Taken No -Epithelialization Small 1-33% -Tunneling No -Undermining/Tunneling No -Circular Undermining No -Exudate Amt Small -Exudate Type Yellow/Green -Wound Margin Thickened & Rolled Under -Granulation Amt None Present (0 %) -Granulation Quality N/A -Slough/Fibrin Yes -Necrosis Amt Small (1-33%) -Necrotic Tissue Type Adherent Slough -Structure Exposed None/Limited to Skin Breakdown -Texture (Lisa-wound Skin Appearance) Assessed Scarring -Moisture (Lisa-wound Skin Appearance No Abnormality ) Assessed -Color (Lisa-wound Skin Appearance) No Abnormality Assessed -Temperature (Lisa-wound Skin No Abnormality Appearance) (Pt Warm) -Ulcer Cleansing Rinsed/ Irrigated with Saline -Foul Odor after Cleansing No -Anesthetic Used 5% Lidocaine Gel #6 L Post -Combined with other wound No -Current Size (cm) - Length 15.5 -Current Size (cm) - Width 2.0 -Current Size (cm) - Depth 0.6 -Total Square Cm 31.00 -Photo Taken No -Epithelialization None Present -Tunneling No -Undermining/Tunneling No -Circular Undermining No -Exudate Amt Medium -Exudate Type Serosanguineous -Wound Margin Distinct, Outline Attached -Granulation Amt None Present (0 %) -Granulation Quality N/A -Necrosis Amt Large (67-100%) -Necrotic Tissue Type Adherent Slough -Structure Exposed N/A -Texture (Lisa-wound Skin Appearance) Assessed Scarring -Moisture (Lisa-wound Skin Appearance Assessed ) Dry/Scaly -Color (Lisa-wound Skin Appearance) Assessed Rubor -Temperature (Lisa-wound Skin No Abnormality Appearance) (Pt Warm) -Tenderness on Palpation (Lisa-wound No Skin Appearance) -Ulcer Cleansing soap and water -Foul Odor after Cleansing No -Anesthetic Used 5% Lidocaine Gel #5 R Lat LE -Combined with other wound No -Current Size (cm) - Length 1.5 -Current Size (cm) - Width 1.5 -Current Size (cm) - Depth 0.1 -Total Square Cm 2.25 -Photo Taken No -Epithelialization None Present -Tunneling No -Undermining/Tunneling No -Circular Undermining No -Exudate Amt Medium -Exudate Type Serosanguineous -Wound Margin Flat & Intact -Granulation Amt None Present (0 %) -Granulation Quality N/A -Slough/Fibrin Yes -Necrosis Amt Large (67-100%) -Necrotic Tissue Type Adherent Slough -Structure Exposed N/A -Texture (Lisa-wound Skin Appearance) Assessed Localized Edema Scarring -Moisture (Lisa-wound Skin Appearance Assessed ) Dry/Scaly -Color (Lisa-wound Skin Appearance) Assessed Rubor -Temperature (Lisa-wound Skin No Abnormality Appearance) (Pt Warm) -Tenderness on Palpation (Lisa-wound No Skin Appearance) -Ulcer Cleansing soap and water -Foul Odor after Cleansing No -Anesthetic Used 5% Lidocaine Gel #4 R post LE -Combined with other wound No -Current Size (cm) - Length 2.7 -Current Size (cm) - Width 2.0 -Current Size (cm) - Depth 0.1 -Total Square Cm 5.40 -Photo Taken No -Epithelialization None Present -Tunneling No -Undermining/Tunneling No -Circular Undermining No -Exudate Amt Medium -Exudate Type Serosanguineous -Wound Margin Distinct, Outline Attached -Granulation Amt None Present (0 %) -Granulation Quality N/A -Slough/Fibrin Yes -Necrosis Amt Large (67-100%) -Structure Exposed N/A -Texture (Lisa-wound Skin Appearance) Assessed Scarring -Moisture (Lisa-wound Skin Appearance Assessed ) Dry/Scaly -Color (Lisa-wound Skin Appearance) Assessed Rubor -Temperature (Lisa-wound Skin No Abnormality Appearance) (Pt Warm) -Tenderness on Palpation (Lisa-wound No Skin Appearance) -Ulcer Cleansing soap and water -Foul Odor after Cleansing No -Anesthetic Used 5% Lidocaine Gel #3 R Med LE -Combined with other wound No -Current Size (cm) - Length 3.0 -Current Size (cm) - Width 1.0 -Current Size (cm) - Depth 0.1 -Total Square Cm 3.00 -Photo Taken No -Epithelialization None Present -Tunneling No -Undermining/Tunneling No -Circular Undermining No -Exudate Amt Medium -Exudate Type Serosanguineous -Wound Margin Flat & Intact -Granulation Amt None Present (0 %) -Granulation Quality N/A -Slough/Fibrin Yes -Necrosis Amt Large (67-100%) -Necrotic Tissue Type Adherent Slough -Structure Exposed N/A -Texture (Lisa-wound Skin Appearance) Assessed Scarring -Moisture (Lisa-wound Skin Appearance Assessed ) Dry/Scaly -Color (Lisa-wound Skin Appearance) Assessed Rubor -Temperature (Lisa-wound Skin No Abnormality Appearance) (Pt Warm) -Tenderness on Palpation (Lisa-wound No Skin Appearance) -Ulcer Cleansing soap and water -Foul Odor after Cleansing No -Anesthetic Used 5% Lidocaine Gel #2 R [place] Cluster -Combined with other wound No -Current Size (cm) - Length 9.6 -Current Size (cm) - Width 2.5 -Current Size (cm) - Depth 0.2 -Total Square Cm 24.00 -Photo Taken No -Epithelialization None Present -Tunneling No -Undermining/Tunneling No -Circular Undermining No -Exudate Amt Medium -Exudate Type Serosanguineous -Wound Margin Distinct, Outline Attached -Granulation Quality N/A -Slough/Fibrin Yes -Necrosis Amt Large (67-100%) -Necrotic Tissue Type Adherent Slough -Structure Exposed N/A -Texture (Lisa-wound Skin Appearance) Scarring -Moisture (Lisa-wound Skin Appearance Assessed ) Dry/Scaly -Color (Lisa-wound Skin Appearance) Assessed Rubor -Temperature (Lisa-wound Skin No Abnormality Appearance) (Pt Warm) -Tenderness on Palpation (Lisa-wound No Skin Appearance) -Ulcer Cleansing soap and water -Foul Odor after Cleansing No -Anesthetic Used 5% Lidocaine Gel #1 R 2nd toe amp -Combined with other wound No -Current Size (cm) - Length 3.0 -Current Size (cm) - Width 1.8 -Current Size (cm) - Depth 0.1 -Total Square Cm 5.40 -Photo Taken No -Epithelialization None Present -Tunneling No -Undermining/Tunneling No -Circular Undermining No -Exudate Amt Small -Exudate Type Serosanguineous -Wound Margin Distinct, Outline Attached -Granulation Amt Small (1-33%) -Granulation Quality N/A -Slough/Fibrin Yes -Necrosis Amt Large (67-100%) -Necrotic Tissue Type Adherent Slough -Structure Exposed N/A -Texture (Lisa-wound Skin Appearance) Assessed Scarring -Moisture (Lisa-wound Skin Appearance Assessed ) Dry/Scaly -Color (Lisa-wound Skin Appearance) Assessed -Temperature (Lisa-wound Skin No Abnormality Appearance) (Pt Warm) -Tenderness on Palpation (Lisa-wound No Skin Appearance) -Ulcer Cleansing soap and water -Foul Odor after Cleansing No -Anesthetic Used 5% Lidocaine Gel [Edema Assessment] -Lower Limb Edema Present Yes -Right Calf (cm) 34.3 -Right Ankle (cm) 24.0 -Left Calf (cm) 35.0 -Left Ankle (cm) 21.0 WC - Nurse 2 - General Ulcer CM Notes Start: 02/01/19 08:12 Freq: Status: Active Protocol: Activity Type Activity Date Activity User E-Sign Co-Sign Detail Recorded Client Recorded Date Recorded By Document 02/01/19 08:51 MW [id number] 02/01/19 08:56 MW Document 02/01/19 09:09 AN [id number] 02/01/19 09:20 AN 02/01/19 02/01/19 08:51 09:09 Wound Center Nurse 2 [Procedure/Treatment] #12 left plantar -Time 09:12 -Correct Patient Yes -Correct Side, Site, Position Yes -Correct Procedure Yes -Procedure Performed Yes -Type of Procedure Debridement -Clinical Debridement Subcutaneous -Post Debridement Size (cm) - Length 0.3 -Post Debridement Size (cm) - Width 0.3 -Post Debridement Size (cm) - Depth 0.1 -Total Square Cm 0.09 -Wound/Ulcer Outcome Not Healed -Ulcer Cleansing Rinsed/ Irrigated with Saline -Foul Odor after Cleansing No -Bioengineered Tissue No -Bleeding Controlled with Pressure -Offloading No -Treatment Response Procedure Not Tolerated Well #11 RIGHT MEDIAL FOOT -Time 09:13 -Correct Patient Yes -Correct Side, Site, Position Yes -Correct Procedure Yes -Procedure Performed Yes -Type of Procedure Debridement -Clinical Debridement Subcutaneous -Post Debridement Size (cm) - Length 3 -Post Debridement Size (cm) - Width 1 -Post Debridement Size (cm) - Depth 0.1 -Total Square Cm 3 -Wound/Ulcer Outcome Not Healed -Ulcer Cleansing Rinsed/ Irrigated with Saline -Foul Odor after Cleansing No -Bioengineered Tissue No -Bleeding Controlled with Pressure -Offloading Yes -Type of Offloading Surgical Shoe -Treatment Response Procedure Tolerated Well #8 r Knee -Time 08:51 -Correct Patient Yes -Correct Side, Site, Position Yes -Correct Procedure Yes -Procedure Performed Yes -Type of Procedure Debridement -Clinical Debridement Subcutaneous -Post Debridement Size (cm) - Length 0.7 -Post Debridement Size (cm) - Width 0.7 -Post Debridement Size (cm) - Depth 0.2 -Total Square Cm 0.49 -Wound/Ulcer Outcome Not Healed -Ulcer Cleansing Rinsed/ Irrigated with Saline -Foul Odor after Cleansing No -Bioengineered Tissue No -Bleeding Controlled with Pressure -Offloading No -Treatment Response Procedure Tolerated Well #6 L Post -Time 09:14 -Correct Patient Yes -Correct Side, Site, Position Yes -Correct Procedure Yes -Procedure Performed Yes -Type of Procedure Debridement -Clinical Debridement Subcutaneous -Post Debridement Size (cm) - Length 15.6 -Post Debridement Size (cm) - Width 2 -Post Debridement Size (cm) - Depth 0.6 -Total Square Cm 31.2 -Wound/Ulcer Outcome Not Healed -Ulcer Cleansing Rinsed/ Irrigated with Saline -Foul Odor after Cleansing No -Bioengineered Tissue No -Bleeding Controlled with Pressure -Offloading No -Treatment Response Procedure Tolerated Well #5 R Lat LE -Time 09:15 -Correct Patient Yes -Correct Side, Site, Position Yes -Correct Procedure Yes -Procedure Performed Yes -Post Debridement Size (cm) - Length 1.6 -Post Debridement Size (cm) - Width 1 -Post Debridement Size (cm) - Depth 0.1 -Total Square Cm 1.6 -Wound/Ulcer Outcome Not Healed -Ulcer Cleansing Rinsed/ Irrigated with Saline -Foul Odor after Cleansing No -Bioengineered Tissue No -Bleeding Controlled with Pressure -Offloading No -Treatment Response Procedure Tolerated Well #4 R post LE -Time 09:16 -Correct Patient Yes -Correct Side, Site, Position Yes -Correct Procedure Yes -Procedure Performed Yes -Type of Procedure Debridement -Clinical Debridement Subcutaneous -Post Debridement Size (cm) - Length 2.8 -Post Debridement Size (cm) - Width 2.1 -Post Debridement Size (cm) - Depth 0.1 -Total Square Cm 5.88 -Wound/Ulcer Outcome Not Healed -Ulcer Cleansing Rinsed/ Irrigated with Saline -Foul Odor after Cleansing No -Bioengineered Tissue No -Bleeding Controlled with Pressure -Offloading No -Treatment Response Procedure Tolerated Well #3 R Med LE -Time 09:17 -Correct Patient Yes -Correct Side, Site, Position Yes -Correct Procedure Yes -Procedure Performed Yes -Type of Procedure Debridement -Clinical Debridement Subcutaneous -Post Debridement Size (cm) - Length 3 -Post Debridement Size (cm) - Width 1 -Post Debridement Size (cm) - Depth 0.1 -Total Square Cm 3 -Wound/Ulcer Outcome Not Healed -Ulcer Cleansing Rinsed/ Irrigated with Saline -Foul Odor after Cleansing No -Bioengineered Tissue No -Bleeding Controlled with Pressure -Offloading No -Treatment Response Procedure Tolerated Well #2 R [place] Cluster -Time 09:18 -Correct Patient Yes -Correct Side, Site, Position Yes -Correct Procedure Yes -Procedure Performed Yes -Type of Procedure Debridement -Clinical Debridement Subcutaneous -Post Debridement Size (cm) - Length 9.7 -Post Debridement Size (cm) - Width 2.6 -Post Debridement Size (cm) - Depth 0.2 -Total Square Cm 25.22 -Wound/Ulcer Outcome Not Healed -Ulcer Cleansing Rinsed/ Irrigated with Saline -Foul Odor after Cleansing No -Bleeding Controlled with Pressure -Treatment Response Procedure Tolerated Well #1 R 2nd toe amp -Time 09:18 -Correct Patient Yes -Correct Side, Site, Position Yes -Correct Procedure Yes -Procedure Performed Yes -Type of Procedure Debridement -Clinical Debridement Subcutaneous -Post Debridement Size (cm) - Length 3.1 -Post Debridement Size (cm) - Width 1.9 -Post Debridement Size (cm) - Depth 0.1 -Total Square Cm 5.89 -Wound/Ulcer Outcome Amputation -Ulcer Cleansing Rinsed/ Irrigated with Saline -Foul Odor after Cleansing No -Bioengineered Tissue No -Bleeding Controlled with Pressure -Offloading No -Treatment Response Procedure Tolerated Well [See Physician Procedure note for Specifics] Pain Scale: 0-10 Numeric [Pain] -Is Patient Pain Free? Yes Musculoskeletal: No Tenderness to Palpation of Joints or Extremities, Muscle Wasting, - - Second and third toe amputation Neurological: - - Lack of epicritic sensation light touch bilateral lower extremities Psych/Mental Status: Normal Affect, Appropriate Debridement Note Post-Debridement Measurements/Treatment WC - Nurse 2 - General Ulcer CM Notes Start: 02/01/19 08:12 Freq: Status: Active Protocol: Activity Type Activity Date Activity User E-Sign Co-Sign Detail Recorded Client Recorded Date Recorded By Document 02/01/19 08:51 MW [id number] 02/01/19 08:56 MW Document 02/01/19 09:09 AN [id number] 02/01/19 09:20 AN 02/01/19 02/01/19 08:51 09:09 Wound Center Nurse 2 #12 left plantar -Time 09:12 -Correct Patient Yes -Correct Side, Site, Position Yes -Correct Procedure Yes -Procedure Performed Yes -Type of Procedure Debridement -Clinical Debridement Subcutaneous -Post Debridement Size (cm) - Length 0.3 -Post Debridement Size (cm) - Width 0.3 -Post Debridement Size (cm) - Depth 0.1 -Total Square Cm 0.09 -Wound/Ulcer Outcome Not Healed -Ulcer Cleansing Rinsed/ Irrigated with Saline -Foul Odor after Cleansing No -Bioengineered Tissue No -Bleeding Controlled with Pressure -Offloading No -Treatment Response Procedure Not Tolerated Well #11 RIGHT MEDIAL FOOT -Time 09:13 -Correct Patient Yes -Correct Side, Site, Position Yes -Correct Procedure Yes -Procedure Performed Yes -Type of Procedure Debridement -Clinical Debridement Subcutaneous -Post Debridement Size (cm) - Length 3 -Post Debridement Size (cm) - Width 1 -Post Debridement Size (cm) - Depth 0.1 -Total Square Cm 3 -Wound/Ulcer Outcome Not Healed -Ulcer Cleansing Rinsed/ Irrigated with Saline -Foul Odor after Cleansing No -Bioengineered Tissue No -Bleeding Controlled with Pressure -Offloading Yes -Type of Offloading Surgical Shoe -Treatment Response Procedure Tolerated Well #8 r Knee -Time 08:51 -Correct Patient Yes -Correct Side, Site, Position Yes -Correct Procedure Yes -Procedure Performed Yes -Type of Procedure Debridement -Clinical Debridement Subcutaneous -Post Debridement Size (cm) - Length 0.7 -Post Debridement Size (cm) - Width 0.7 -Post Debridement Size (cm) - Depth 0.2 -Total Square Cm 0.49 -Wound/Ulcer Outcome Not Healed -Ulcer Cleansing Rinsed/ Irrigated with Saline -Foul Odor after Cleansing No -Bioengineered Tissue No -Bleeding Controlled with Pressure -Offloading No -Treatment Response Procedure Tolerated Well #6 L Post -Time 09:14 -Correct Patient Yes -Correct Side, Site, Position Yes -Correct Procedure Yes -Procedure Performed Yes -Type of Procedure Debridement -Clinical Debridement Subcutaneous -Post Debridement Size (cm) - Length 15.6 -Post Debridement Size (cm) - Width 2 -Post Debridement Size (cm) - Depth 0.6 -Total Square Cm 31.2 -Wound/Ulcer Outcome Not Healed -Ulcer Cleansing Rinsed/ Irrigated with Saline -Foul Odor after Cleansing No -Bioengineered Tissue No -Bleeding Controlled with Pressure -Offloading No -Treatment Response Procedure Tolerated Well #5 R Lat LE -Time 09:15 -Correct Patient Yes -Correct Side, Site, Position Yes -Correct Procedure Yes -Procedure Performed Yes -Post Debridement Size (cm) - Length 1.6 -Post Debridement Size (cm) - Width 1 -Post Debridement Size (cm) - Depth 0.1 -Total Square Cm 1.6 -Wound/Ulcer Outcome Not Healed -Ulcer Cleansing Rinsed/ Irrigated with Saline -Foul Odor after Cleansing No -Bioengineered Tissue No -Bleeding Controlled with Pressure -Offloading No -Treatment Response Procedure Tolerated Well #4 R post LE -Time 09:16 -Correct Patient Yes -Correct Side, Site, Position Yes -Correct Procedure Yes -Procedure Performed Yes -Type of Procedure Debridement -Clinical Debridement Subcutaneous -Post Debridement Size (cm) - Length 2.8 -Post Debridement Size (cm) - Width 2.1 -Post Debridement Size (cm) - Depth 0.1 -Total Square Cm 5.88 -Wound/Ulcer Outcome Not Healed -Ulcer Cleansing Rinsed/ Irrigated with Saline -Foul Odor after Cleansing No -Bioengineered Tissue No -Bleeding Controlled with Pressure -Offloading No -Treatment Response Procedure Tolerated Well #3 R Med LE -Time 09:17 -Correct Patient Yes -Correct Side, Site, Position Yes -Correct Procedure Yes -Procedure Performed Yes -Type of Procedure Debridement -Clinical Debridement Subcutaneous -Post Debridement Size (cm) - Length 3 -Post Debridement Size (cm) - Width 1 -Post Debridement Size (cm) - Depth 0.1 -Total Square Cm 3 -Wound/Ulcer Outcome Not Healed -Ulcer Cleansing Rinsed/ Irrigated with Saline -Foul Odor after Cleansing No -Bioengineered Tissue No -Bleeding Controlled with Pressure -Offloading No -Treatment Response Procedure Tolerated Well #2 R [place] Cluster -Time 09:18 -Correct Patient Yes -Correct Side, Site, Position Yes -Correct Procedure Yes -Procedure Performed Yes -Type of Procedure Debridement -Clinical Debridement Subcutaneous -Post Debridement Size (cm) - Length 9.7 -Post Debridement Size (cm) - Width 2.6 -Post Debridement Size (cm) - Depth 0.2 -Total Square Cm 25.22 -Wound/Ulcer Outcome Not Healed -Ulcer Cleansing Rinsed/ Irrigated with Saline -Foul Odor after Cleansing No -Bleeding Controlled with Pressure -Treatment Response Procedure Tolerated Well #1 R 2nd toe amp -Time 09:18 -Correct Patient Yes -Correct Side, Site, Position Yes -Correct Procedure Yes -Procedure Performed Yes -Type of Procedure Debridement -Clinical Debridement Subcutaneous -Post Debridement Size (cm) - Length 3.1 -Post Debridement Size (cm) - Width 1.9 -Post Debridement Size (cm) - Depth 0.1 -Total Square Cm 5.89 -Wound/Ulcer Outcome Amputation -Ulcer Cleansing Rinsed/ Irrigated with Saline -Foul Odor after Cleansing No -Bioengineered Tissue No -Bleeding Controlled with Pressure -Offloading No -Treatment Response Procedure Tolerated Well Pain Scale: 0-10 Numeric Is Patient Pain Free? Yes Wound debrided: forefoot Laterality: Right Wound Grade/Stage: grade 3 Type of Debridement: Excisional debridement Anesthesia Used: 5% Lidocaine Gel Depth: in the subcutaneous layer Percentage of wound debrided: 100 Instrument Used: #15 blade Tissue Removed: fibrous, devitalized subcutaneous, biofilm, slough Severity: Fat Layer Exposed Amount of bleeding with debridement: Mild Bleeding Controlled with: Pressure Patient tolerated procedure well - Additional Wound Wound debrided: foot/ankle Laterality: Right Wound Grade/Stage: grade 3 Type of Debridement: Excisional debridement Anesthesia Used: 5% Lidocaine Gel Depth: in the subcutaneous layer Percentage of wound debrided: 100 Instrument Used: #15 blade Tissue Removed: fibrous, devitalized subcutaneous, biofilm, slough Severity: Fat Layer Exposed Amount of bleeding with debridement: Mild Bleeding Controlled with: Pressure Patient tolerated procedure: Patient tolerated procedure well - Additional Wound Wound debrided: posterior leg Laterality: Left Wound Grade/Stage: grade 2 Type of Debridement: Excisional debridement Anesthesia Used: 5% Lidocaine Gel Depth: in the subcutaneous layer Percentage of wound debrided: 100 Instrument Used: #15 blade Tissue Removed: fibrous, devitalized subcutaneous, biofilm, slough Severity: Fat Layer Exposed Amount of bleeding with debridement: Mild Bleeding Controlled with: Pressure Patient tolerated procedure: Patient tolerated procedure well - Additional Wound Wound debrided: anterior leg Laterality: Right Wound Grade/Stage: grade 1 Type of Debridement: Excisional debridement Anesthesia Used: 5% Lidocaine Gel Depth: in the subcutaneous layer Percentage of wound debrided: 100 Instrument Used: #15 blade Tissue Removed: fibrous, devitalized subcutaneous, biofilm, slough Severity: Fat Layer Exposed Amount of bleeding with debridement: Mild Bleeding Controlled with: Pressure Patient tolerated procedure: Patient tolerated procedure well - Additional Wound Wound debrided: medial leg Laterality: Right Wound Grade/Stage: grade 1 Type of Debridement: Excisional debridement Anesthesia Used: 5% Lidocaine Gel Depth: in the subcutaneous layer Percentage of wound debrided: 100 Instrument Used: #15 blade Tissue Removed: fibrous, devitalized subcutaneous, biofilm, slough Severity: Fat Layer Exposed Amount of bleeding with debridement: Mild Bleeding Controlled with: Pressure Patient tolerated procedure: Patient tolerated procedure well - Additional Wound Wound debrided: lateral leg Laterality: Right Wound Grade/Stage: grade 1 Type of Debridement: Excisional debridement Anesthesia Used: 5% Lidocaine Gel Depth: in the subcutaneous layer Percentage of wound debrided: 100 Instrument Used: #15 blade Tissue Removed: fibrous, devitalized subcutaneous, biofilm, slough Severity: Fat Layer Exposed Amount of bleeding with debridement: Mild Bleeding Controlled with: Pressure Patient tolerated procedure: Patient tolerated procedure well - Additional Wound Wound debrided: posterior leg Laterality: Right Wound Grade/Stage: grade 1 Type of Debridement: Excisional debridement Anesthesia Used: 5% Lidocaine Gel Depth: in the subcutaneous layer Percentage of wound debrided: 100 Instrument Used: #15 blade Tissue Removed: fibrous, devitalized subcutaneous, biofilm, slough Severity: Fat Layer Exposed Amount of bleeding with debridement: Mild Bleeding Controlled with: Pressure Patient tolerated procedure: Patient tolerated procedure well - Additional Wound Wound debrided: plantar foot Laterality: Left Wound Grade/Stage: grade 1 Type of Debridement: Excisional debridement Anesthesia Used: 5% Lidocaine Gel Depth: in the subcutaneous layer Percentage of wound debrided: 100 Instrument Used: #15 blade Tissue Removed: fibrous, devitalized subcutaneous, biofilm, slough Severity: Fat Layer Exposed Amount of bleeding with debridement: Mild Bleeding Controlled with: Pressure Patient tolerated procedure: Patient tolerated procedure well Assessment/Plan Active Problems (Last Updated 09/28/18 @ 12:41 by Geraldine Steele) Ulcer of right foot with fat layer exposed (Chronic) Skin ulcer of right knee with fat layer exposed (Chronic) Delayed wound healing (Chronic) Ulcer of right lower extremity with fat layer exposed (Chronic) Ulcer of left lower extremity with fat layer exposed (Chronic) Type 2 diabetes mellitus with diabetic polyneuropathy (Chronic) Malnutrition (Chronic) Assessment: Open second and third ray resection secondary to 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 Diabetic neuropathy. Malnutrition suspected. 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 Delayed healing. Gait impairment and fall risk. Other comorbidities, right knee ulcer Plan: I reviewed and discussed his case today. He was reassured no infections are noted. Debridement done as documented above in the nursing clinical panel. Procedure was well-tolerated. Continue [employer]; to change every third day. Elevate lower extremities when seated and in bed. Continue increased protein intake. I recommend he avoids laying directly on his wounds to reduce pressure, and I was concerned about his perfusion to his limbs. He had an arterial Doppler scheduled with Dr. Morgan's staff on August 02, 2018 and overall perfusion was confirmed; additional intervention or workup was not recommended. It is also noted that he did have venous Doppler performed with reflux evaluation. He did not have evidence of deep venous thrombosis or venous insufficiency at that time; the vessels were compressible. To continue with nutritional supplementation optimize healing; I recommend Juan. I recommend he sustained from smoking and alcohol activities to optimize healing as well. His workup for vasculitis and underlying autoimmune disorder is also pending. A punch biopsy was sent during his last surgical intervention on June 10 and this demonstrated inflammatory changes without malignancy. He had initial screening labs and so far he has a negative RA titer, HL of the 27, KEVIN, anti-CCP, and rheumatoid factor. Several his antibody screenings were not reportable. Hyperbaric oxygen therapy was recommended and it is noted his ejection fraction was most recently 50%. He refuses at this time. Dr. Gilbert continues to manage his right knee ulcer including debridements and traditional wound care plan. He refuses surgical intervention at this time to bilateral lower extremities. I answered all of his questions. Additional amputation of the right foot is not planned due to his fairly nonambulatory status. Smoking cessation was discussed in detail again today and compliance is imperative to optimize healing of surgical success. He reports he is cutting back. I recommend further follow-up at the wound care center 1 week with me, or call sooner if he has any questions. Compliance at this advanced wound care center was reviewed. He understands additional palliative care programs are an option if he does not wish to proceed with advanced wound care opportunities that has been recommended. 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
[2019-02-15 09:44] VITALS: BP 132/84; PULSE 82; RESP 18; TEMP 36.4
--- NOTE | 2019-02-15 11:02 | PN.PCM_ITS ---
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 Arguello is a 63-year-old male with multiple comorbidities follows up for delayed healing ulcers to the right foot as well as bilateral leg s. It is noted he previously had widespread debridements and fasciotomies performed to bilateral lower extremities secondary to life-threatening and limb threatening infection; this was previously performed at [facility]. He continues to follow with Dr. Gilbert for his right knee ulcer. He denies chills, fever or otherwise feeling of unwell. He presents today with his . He still refuses advanced wound care product application. He refuses hyperbaric oxygen therapy treatment. He elects to proceed with a palliative care plan because he is refusing the other treatment recommendations. He missed his last appointment due to dangerous weather. He does have a new blister to the left foot with an onset of 3 weeks ago. He denies drainage however there is discoloration. He denies pain. He denies redness or odor from the site. He denies a traumatic accident. He reports he places more weight on his left foot and attempt to keep pressure off of the right limb. Progress of Wound: Stable. No new concerns at this time. - Physical Exam Vital Signs Temp Pulse Resp BP 97.6 F L 82 18 132/84 H 02/15/19 09:44 02/15/19 09:44 02/15/19 09:44 02/15/19 09:44 General: Alert, Oriented x3, Cooperative, No apparent distress HEENT: Atraumatic, Normocephalic Oral: Moist Mucosa Neck: Supple Lungs: Normal air movement Abdomen: Non Tender Extremities: No cyanosis Skin: Ulcer/ Wound Wound Measurements and Assessment WC - Nurse 1 - General Ulcer Measurement Start: 02/01/19 08:12 Freq: Status: Active Protocol: Activity Type Activity Date Activity User E-Sign Co-Sign Detail Recorded Client Recorded Date Recorded By Document 02/15/19 09:44 DV [id number] 02/15/19 10:13 DV 02/15/19 09:44 Wound Center Nurse 1 [Ulcer Assessment] #12 left plantar -Combined with other wound No -Current Size (cm) - Length 0.2 -Current Size (cm) - Width 0.2 -Current Size (cm) - Depth 0.3 -Total Square Cm 0.04 -Photo Taken No -Tunneling No -Undermining/Tunneling No -Circular Undermining No -Classification - Thickness Full Thickness without Exposed Support Structure -Exudate Amt Small -Exudate Type Serous -Wound Margin Thickened & Rolled Under -Granulation Amt None Present (0 %) -Granulation Quality N/A -Slough/Fibrin Yes -Necrosis Amt None Present (0 %) -Necrotic Tissue Type Adherent Slough -Structure Exposed None/Limited to Skin Breakdown -Texture (Lisa-wound Skin Appearance) No Abnormality Assessed -Moisture (Lisa-wound Skin Appearance No Abnormality ) Assessed Dry/Scaly -Color (Lisa-wound Skin Appearance) No Abnormality Assessed -Temperature (Lisa-wound Skin No Abnormality Appearance) (Pt Warm) -Tenderness on Palpation (Lisa-wound No Skin Appearance) -Ulcer Cleansing Rinsed/ Irrigated with Saline -Foul Odor after Cleansing No -Anesthetic Used 4% Lidocaine Solution #11 RIGHT MEDIAL FOOT -Combined with other wound No -Current Size (cm) - Length 12.2 -Current Size (cm) - Width 1.8 -Current Size (cm) - Depth 0.5 -Total Square Cm 21.96 -Photo Taken No -Tunneling No -Undermining/Tunneling No -Circular Undermining No -Classification - Thickness Full Thickness without Exposed Support Structure -Exudate Amt Small -Wound Margin Fibrotic Scar, Thickened Scar -Granulation Amt None Present (0 %) -Granulation Quality N/A -Slough/Fibrin Yes -Necrosis Amt Large (67-100%) -Necrotic Tissue Type Adherent Slough -Structure Exposed None/Limited to Skin Breakdown -Texture (Lisa-wound Skin Appearance) Assessed Scarring -Moisture (Lisa-wound Skin Appearance Assessed ) Dry/Scaly -Color (Lisa-wound Skin Appearance) Assessed -Temperature (Lisa-wound Skin No Abnormality Appearance) (Pt Warm) -Tenderness on Palpation (Lisa-wound No Skin Appearance) -Ulcer Cleansing soap -Foul Odor after Cleansing No -Anesthetic Used 5% Lidocaine Gel #8 r Knee -Combined with other wound No -Current Size (cm) - Length 0.7 -Current Size (cm) - Width 0.7 -Current Size (cm) - Depth 0.3 -Total Square Cm 0.49 -Photo Taken No -Tunneling No -Undermining/Tunneling No -Circular Undermining No -Exudate Amt Small -Exudate Type Serous -Wound Margin Thickened & Rolled Under -Granulation Amt None Present (0 %) -Granulation Quality N/A -Slough/Fibrin Yes -Necrosis Amt Large (67-100%) -Necrotic Tissue Type Adherent Slough -Structure Exposed None/Limited to Skin Breakdown -Texture (Lisa-wound Skin Appearance) No Abnormality Assessed -Moisture (Lisa-wound Skin Appearance Assessed ) Dry/Scaly -Color (Lisa-wound Skin Appearance) Assessed Hemosiderin Staining -Temperature (Lisa-wound Skin No Abnormality Appearance) (Pt Warm) -Tenderness on Palpation (Lisa-wound No Skin Appearance) -Ulcer Cleansing soap -Anesthetic Used 4% Lidocaine Solution #6 L Post -Combined with other wound No -Current Size (cm) - Length 20.8 -Current Size (cm) - Width 1.5 -Current Size (cm) - Depth 0.5 -Total Square Cm 31.20 -Photo Taken No -Tunneling No -Undermining/Tunneling No -Circular Undermining No -Exudate Amt Small -Exudate Type Serous -Wound Margin Fibrotic Scar, Thickened Scar -Granulation Quality N/A -Slough/Fibrin Yes -Necrosis Amt Large (67-100%) -Necrotic Tissue Type Adherent Slough -Structure Exposed None/Limited to Skin Breakdown -Texture (Lisa-wound Skin Appearance) Assessed Scarring -Moisture (Lisa-wound Skin Appearance Assessed ) Dry/Scaly -Color (Lisa-wound Skin Appearance) No Abnormality Assessed -Temperature (Lisa-wound Skin No Abnormality Appearance) (Pt Warm) -Ulcer Cleansing soap -Foul Odor after Cleansing No -Anesthetic Used 4% Lidocaine Solution #5 R Lat LE -Combined with other wound No -Current Size (cm) - Length 1.8 -Current Size (cm) - Width 1.0 -Current Size (cm) - Depth 0.1 -Total Square Cm 1.80 -Photo Taken No -Epithelialization None Present -Undermining/Tunneling No -Circular Undermining No -Exudate Amt Small -Exudate Type Serosanguineous -Wound Margin Fibrotic Scar, Thickened Scar -Granulation Amt None Present (0 %) -Granulation Quality N/A -Slough/Fibrin Yes -Necrosis Amt Large (67-100%) -Necrotic Tissue Type Adherent Slough -Structure Exposed None/Limited to Skin Breakdown -Texture (Lisa-wound Skin Appearance) Assessed Scarring -Moisture (Lisa-wound Skin Appearance No Abnormality ) Dry/Scaly -Color (Lisa-wound Skin Appearance) No Abnormality Assessed -Temperature (Lisa-wound Skin No Abnormality Appearance) (Pt Warm) -Tenderness on Palpation (Lisa-wound No Skin Appearance) -Ulcer Cleansing soap -Foul Odor after Cleansing No -Anesthetic Used 5% Lidocaine Gel #4 R post LE -Combined with other wound No -Current Size (cm) - Length 2.6 -Current Size (cm) - Width 1.7 -Current Size (cm) - Depth 0.3 -Total Square Cm 4.42 -Photo Taken No -Tunneling No -Undermining/Tunneling No -Circular Undermining No -Exudate Amt Small -Exudate Type Serosanguineous -Wound Margin Thickened & Rolled Under -Granulation Amt None Present (0 %) -Granulation Quality N/A -Slough/Fibrin Yes -Necrosis Amt Large (67-100%) -Necrotic Tissue Type Adherent Slough -Structure Exposed None/Limited to Skin Breakdown -Texture (Lisa-wound Skin Appearance) Assessed Scarring -Moisture (Lisa-wound Skin Appearance Assessed ) Dry/Scaly -Color (Lisa-wound Skin Appearance) No Abnormality Assessed -Temperature (Lisa-wound Skin No Abnormality Appearance) (Pt Warm) -Tenderness on Palpation (Lisa-wound No Skin Appearance) -Ulcer Cleansing soap -Foul Odor after Cleansing No -Anesthetic Used 4% Lidocaine Solution #3 R Med LE -Combined with other wound No -Current Size (cm) - Length 2.6 -Current Size (cm) - Width 0.5 -Current Size (cm) - Depth 0.7 -Total Square Cm 1.30 -Photo Taken No -Epithelialization None Present -Undermining/Tunneling No -Circular Undermining No -Exudate Amt Small -Exudate Type Serous -Wound Margin Thickened & Rolled Under -Granulation Amt None Present (0 %) -Granulation Quality N/A -Slough/Fibrin Yes -Necrosis Amt Large (67-100%) -Necrotic Tissue Type Adherent Slough -Structure Exposed None/Limited to Skin Breakdown -Texture (Lisa-wound Skin Appearance) Assessed Localized Edema Scarring -Moisture (Lisa-wound Skin Appearance Assessed ) Dry/Scaly -Color (Lisa-wound Skin Appearance) No Abnormality Assessed -Temperature (Lisa-wound Skin No Abnormality Appearance) (Pt Warm) -Tenderness on Palpation (Lisa-wound No Skin Appearance) -Ulcer Cleansing soap -Foul Odor after Cleansing No -Anesthetic Used 4% Lidocaine Solution #2 R [place] Cluster -Combined with other wound No -Current Size (cm) - Length 9.0 -Current Size (cm) - Width 2.0 -Current Size (cm) - Depth 0.1 -Total Square Cm 18.00 -Photo Taken No -Tunneling No -Undermining/Tunneling No -Circular Undermining No -Classification - Thickness Full Thickness without Exposed Support Structure -Granulation Amt None Present (0 %) -Granulation Quality N/A -Slough/Fibrin Yes -Necrosis Amt Large (67-100%) -Necrotic Tissue Type Adherent Slough -Structure Exposed None/Limited to Skin Breakdown -Texture (Lisa-wound Skin Appearance) Assessed -Moisture (Lisa-wound Skin Appearance Assessed ) -Color (Lisa-wound Skin Appearance) Assessed -Temperature (Lisa-wound Skin No Abnormality Appearance) (Pt Warm) -Ulcer Cleansing soap #1 R 2nd toe amp -Combined with other wound No -Current Size (cm) - Length 2.5 -Current Size (cm) - Width 0.5 -Current Size (cm) - Depth 0.6 -Total Square Cm 1.25 -Photo Taken No -Epithelialization None Present -Tunneling No -Undermining/Tunneling No -Circular Undermining No -Classification - Thickness Full Thickness without Exposed Support Structure -Exudate Amt Small -Exudate Type Serous -Wound Margin Fibrotic Scar, Thickened Scar -Granulation Amt None Present (0 %) -Granulation Quality N/A -Slough/Fibrin Yes -Necrosis Amt Large (67-100%) -Necrotic Tissue Type Adherent Slough -Structure Exposed None/Limited to Skin Breakdown -Texture (Lisa-wound Skin Appearance) Assessed -Moisture (Lisa-wound Skin Appearance Assessed ) -Color (Lisa-wound Skin Appearance) Assessed -Temperature (Lisa-wound Skin No Abnormality Appearance) (Pt Warm) -Tenderness on Palpation (Lisa-wound No Skin Appearance) -Ulcer Cleansing soap -Foul Odor after Cleansing No -Anesthetic Used 4% Lidocaine Solution WC - Nurse 2 - General Ulcer CM Notes Start: 02/01/19 08:12 Freq: Status: Active Protocol: Activity Type Activity Date Activity User E-Sign Co-Sign Detail Recorded Client Recorded Date Recorded By Document 02/15/19 10:17 DV [id number] 02/15/19 10:24 DV Document 02/15/19 10:55 MW [id number] 02/15/19 10:57 MW 02/15/19 02/15/19 10:17 10:55 Wound Center Nurse 2 [Procedure/Treatment] #12 left plantar -Time 10:19 -Correct Patient Yes -Correct Side, Site, Position Yes -Correct Procedure Yes -Procedure Performed Yes -Type of Procedure Debridement -Clinical Debridement Subcutaneous -Post Debridement Size (cm) - Length 0.3 -Post Debridement Size (cm) - Width 0.3 -Post Debridement Size (cm) - Depth 0.3 -Total Square Cm 0.09 #11 RIGHT MEDIAL FOOT -Time 10:19 -Correct Patient Yes -Correct Side, Site, Position Yes -Correct Procedure Yes -Procedure Performed Yes -Type of Procedure Debridement -Clinical Debridement Subcutaneous -Post Debridement Size (cm) - Length 12.3 -Post Debridement Size (cm) - Width 1.9 -Post Debridement Size (cm) - Depth 0.5 -Total Square Cm 23.37 -Treatment Response Procedure Tolerated Well #8 r Knee -Time 10:56 -Correct Patient Yes -Correct Side, Site, Position Yes -Correct Procedure Yes -Procedure Performed Yes -Type of Procedure Debridement -Clinical Debridement Subcutaneous -Post Debridement Size (cm) - Length 0.7 -Post Debridement Size (cm) - Width 0.6 -Post Debridement Size (cm) - Depth 0.1 -Total Square Cm 0.42 -Wound/Ulcer Outcome Not Healed -Ulcer Cleansing Rinsed/ Irrigated with Saline -Foul Odor after Cleansing No -Bioengineered Tissue No -Bleeding Controlled with Pressure -Offloading No -Treatment Response Procedure Tolerated Well #6 L Post -Time 10:19 -Correct Patient Yes -Correct Side, Site, Position Yes -Correct Procedure Yes -Procedure Performed Yes -Type of Procedure Debridement -Clinical Debridement Subcutaneous -Post Debridement Size (cm) - Length 20.9 -Post Debridement Size (cm) - Width 1.6 -Post Debridement Size (cm) - Depth 0.5 -Total Square Cm 33.44 -Treatment Response Procedure Tolerated Well #5 R Lat LE -Time 10:19 -Correct Patient Yes -Correct Side, Site, Position Yes -Correct Procedure Yes -Procedure Performed Yes -Type of Procedure Debridement -Clinical Debridement Subcutaneous -Post Debridement Size (cm) - Length 1.9 -Post Debridement Size (cm) - Width 1.1 -Post Debridement Size (cm) - Depth 0.1 -Total Square Cm 2.09 -Treatment Response Procedure Tolerated Well #4 R post LE -Time 10:19 -Correct Patient Yes -Correct Side, Site, Position Yes -Correct Procedure Yes -Procedure Performed Yes -Type of Procedure Debridement -Clinical Debridement Subcutaneous -Post Debridement Size (cm) - Length 2.7 -Post Debridement Size (cm) - Width 1.8 -Post Debridement Size (cm) - Depth 0.3 -Total Square Cm 4.86 -Treatment Response Procedure Tolerated Well #3 R Med LE -Time 10:19 -Correct Patient Yes -Correct Side, Site, Position Yes -Correct Procedure Yes -Procedure Performed Yes -Type of Procedure Debridement -Clinical Debridement Subcutaneous -Post Debridement Size (cm) - Length 2.7 -Post Debridement Size (cm) - Width 0.6 -Post Debridement Size (cm) - Depth 0.7 -Total Square Cm 1.62 -Wound/Ulcer Outcome Not Healed -Treatment Response Procedure Tolerated Well #2 R [place] Cluster -Time 10:19 -Correct Patient Yes -Correct Side, Site, Position Yes -Correct Procedure Yes -Procedure Performed Yes -Type of Procedure Debridement -Clinical Debridement Subcutaneous -Post Debridement Size (cm) - Length 9.1 -Post Debridement Size (cm) - Width 2.1 -Post Debridement Size (cm) - Depth 0.1 -Total Square Cm 19.11 -Treatment Response Procedure Tolerated Well #1 R 2nd toe amp -Time 10:38 -Correct Patient Yes -Correct Side, Site, Position Yes -Correct Procedure Yes -Procedure Performed Yes -Type of Procedure Debridement -Clinical Debridement Subcutaneous -Post Debridement Size (cm) - Length 2.6 -Post Debridement Size (cm) - Width 0.6 -Post Debridement Size (cm) - Depth 0.6 -Total Square Cm 1.56 -Treatment Response Procedure Tolerated Well [See Physician Procedure note for Specifics] Pain Scale: 0-10 Numeric [Pain] -Is Patient Pain Free? Yes Yes Musculoskeletal: No Muscle Wasting Neurological: Cranial nerves II-XII grossly intact Psych/Mental Status: Normal Affect Debridement Note Post-Debridement Measurements/Treatment WC - Nurse 2 - General Ulcer CM Notes Start: 02/01/19 08:12 Freq: Status: Active Protocol: Activity Type Activity Date Activity User E-Sign Co-Sign Detail Recorded Client Recorded Date Recorded By Document 02/01/19 08:51 MW [id number] 02/01/19 08:56 MW Document 02/01/19 09:09 AN [id number] 02/01/19 09:20 AN Document 02/15/19 10:17 DV [id number] 02/15/19 10:24 DV Document 02/15/19 10:55 MW [id number] 02/15/19 10:57 MW 02/01/19 02/01/19 02/15/19 08:51 09:09 10:17 Wound Center Nurse 2 #12 left plantar -Time 09:12 10:19 -Correct Patient Yes Yes -Correct Side, Site, Position Yes Yes -Correct Procedure Yes Yes -Procedure Performed Yes Yes -Type of Procedure Debridement Debridement -Clinical Debridement Subcutaneous Subcutaneous -Post Debridement Size (cm) - Length 0.3 0.3 -Post Debridement Size (cm) - Width 0.3 0.3 -Post Debridement Size (cm) - Depth 0.1 0.3 -Total Square Cm 0.09 0.09 -Wound/Ulcer Outcome Not Healed -Ulcer Cleansing Rinsed/ Irrigated with Saline -Foul Odor after Cleansing No -Bioengineered Tissue No -Bleeding Controlled with Pressure -Offloading No -Treatment Response Procedure Not Tolerated Well #11 RIGHT MEDIAL FOOT -Time 09:13 10:19 -Correct Patient Yes Yes -Correct Side, Site, Position Yes Yes -Correct Procedure Yes Yes -Procedure Performed Yes Yes -Type of Procedure Debridement Debridement -Clinical Debridement Subcutaneous Subcutaneous -Post Debridement Size (cm) - Length 3 12.3 -Post Debridement Size (cm) - Width 1 1.9 -Post Debridement Size (cm) - Depth 0.1 0.5 -Total Square Cm 3 23.37 -Wound/Ulcer Outcome Not Healed -Ulcer Cleansing Rinsed/ Irrigated with Saline -Foul Odor after Cleansing No -Bioengineered Tissue No -Bleeding Controlled with Pressure -Offloading Yes -Type of Offloading Surgical Shoe -Treatment Response Procedure Procedure Tolerated Well Tolerated Well #8 r Knee -Time 08:51 -Correct Patient Yes -Correct Side, Site, Position Yes -Correct Procedure Yes -Procedure Performed Yes -Type of Procedure Debridement -Clinical Debridement Subcutaneous -Post Debridement Size (cm) - Length 0.7 -Post Debridement Size (cm) - Width 0.7 -Post Debridement Size (cm) - Depth 0.2 -Total Square Cm 0.49 -Wound/Ulcer Outcome Not Healed -Ulcer Cleansing Rinsed/ Irrigated with Saline -Foul Odor after Cleansing No -Bioengineered Tissue No -Bleeding Controlled with Pressure -Offloading No -Treatment Response Procedure Tolerated Well #6 L Post -Time 09:14 10:19 -Correct Patient Yes Yes -Correct Side, Site, Position Yes Yes -Correct Procedure Yes Yes -Procedure Performed Yes Yes -Type of Procedure Debridement Debridement -Clinical Debridement Subcutaneous Subcutaneous -Post Debridement Size (cm) - Length 15.6 20.9 -Post Debridement Size (cm) - Width 2 1.6 -Post Debridement Size (cm) - Depth 0.6 0.5 -Total Square Cm 31.2 33.44 -Wound/Ulcer Outcome Not Healed -Ulcer Cleansing Rinsed/ Irrigated with Saline -Foul Odor after Cleansing No -Bioengineered Tissue No -Bleeding Controlled with Pressure -Offloading No -Treatment Response Procedure Procedure Tolerated Well Tolerated Well #5 R Lat LE -Time 09:15 10:19 -Correct Patient Yes Yes -Correct Side, Site, Position Yes Yes -Correct Procedure Yes Yes -Procedure Performed Yes Yes -Type of Procedure Debridement -Clinical Debridement Subcutaneous -Post Debridement Size (cm) - Length 1.6 1.9 -Post Debridement Size (cm) - Width 1 1.1 -Post Debridement Size (cm) - Depth 0.1 0.1 -Total Square Cm 1.6 2.09 -Wound/Ulcer Outcome Not Healed -Ulcer Cleansing Rinsed/ Irrigated with Saline -Foul Odor after Cleansing No -Bioengineered Tissue No -Bleeding Controlled with Pressure -Offloading No -Treatment Response Procedure Procedure Tolerated Well Tolerated Well #4 R post LE -Time 09:16 10:19 -Correct Patient Yes Yes -Correct Side, Site, Position Yes Yes -Correct Procedure Yes Yes -Procedure Performed Yes Yes -Type of Procedure Debridement Debridement -Clinical Debridement Subcutaneous Subcutaneous -Post Debridement Size (cm) - Length 2.8 2.7 -Post Debridement Size (cm) - Width 2.1 1.8 -Post Debridement Size (cm) - Depth 0.1 0.3 -Total Square Cm 5.88 4.86 -Wound/Ulcer Outcome Not Healed -Ulcer Cleansing Rinsed/ Irrigated with Saline -Foul Odor after Cleansing No -Bioengineered Tissue No -Bleeding Controlled with Pressure -Offloading No -Treatment Response Procedure Procedure Tolerated Well Tolerated Well #3 R Med LE -Time 09:17 10:19 -Correct Patient Yes Yes -Correct Side, Site, Position Yes Yes -Correct Procedure Yes Yes -Procedure Performed Yes Yes -Type of Procedure Debridement Debridement -Clinical Debridement Subcutaneous Subcutaneous -Post Debridement Size (cm) - Length 3 2.7 -Post Debridement Size (cm) - Width 1 0.6 -Post Debridement Size (cm) - Depth 0.1 0.7 -Total Square Cm 3 1.62 -Wound/Ulcer Outcome Not Healed Not Healed -Ulcer Cleansing Rinsed/ Irrigated with Saline -Foul Odor after Cleansing No -Bioengineered Tissue No -Bleeding Controlled with Pressure -Offloading No -Treatment Response Procedure Procedure Tolerated Well Tolerated Well #2 R [place] Cluster -Time 09:18 10:19 -Correct Patient Yes Yes -Correct Side, Site, Position Yes Yes -Correct Procedure Yes Yes -Procedure Performed Yes Yes -Type of Procedure Debridement Debridement -Clinical Debridement Subcutaneous Subcutaneous -Post Debridement Size (cm) - Length 9.7 9.1 -Post Debridement Size (cm) - Width 2.6 2.1 -Post Debridement Size (cm) - Depth 0.2 0.1 -Total Square Cm 25.22 19.11 -Wound/Ulcer Outcome Not Healed -Ulcer Cleansing Rinsed/ Irrigated with Saline -Foul Odor after Cleansing No -Bleeding Controlled with Pressure -Treatment Response Procedure Procedure Tolerated Well Tolerated Well #1 R 2nd toe amp -Time 09:18 10:38 -Correct Patient Yes Yes -Correct Side, Site, Position Yes Yes -Correct Procedure Yes Yes -Procedure Performed Yes Yes -Type of Procedure Debridement Debridement -Clinical Debridement Subcutaneous Subcutaneous -Post Debridement Size (cm) - Length 3.1 2.6 -Post Debridement Size (cm) - Width 1.9 0.6 -Post Debridement Size (cm) - Depth 0.1 0.6 -Total Square Cm 5.89 1.56 -Wound/Ulcer Outcome Amputation -Ulcer Cleansing Rinsed/ Irrigated with Saline -Foul Odor after Cleansing No -Bioengineered Tissue No -Bleeding Controlled with Pressure -Offloading No -Treatment Response Procedure Procedure Tolerated Well Tolerated Well Pain Scale: 0-10 Numeric Is Patient Pain Free? Yes Yes 02/15/19 10:55 Wound Center Nurse 2 #12 left plantar -Time -Correct Patient -Correct Side, Site, Position -Correct Procedure -Procedure Performed -Type of Procedure -Clinical Debridement -Post Debridement Size (cm) - Length -Post Debridement Size (cm) - Width -Post Debridement Size (cm) - Depth -Total Square Cm -Wound/Ulcer Outcome -Ulcer Cleansing -Foul Odor after Cleansing -Bioengineered Tissue -Bleeding Controlled with -Offloading -Treatment Response #11 RIGHT MEDIAL FOOT -Time -Correct Patient -Correct Side, Site, Position -Correct Procedure -Procedure Performed -Type of Procedure -Clinical Debridement -Post Debridement Size (cm) - Length -Post Debridement Size (cm) - Width -Post Debridement Size (cm) - Depth -Total Square Cm -Wound/Ulcer Outcome -Ulcer Cleansing -Foul Odor after Cleansing -Bioengineered Tissue -Bleeding Controlled with -Offloading -Type of Offloading -Treatment Response #8 r Knee -Time 10:56 -Correct Patient Yes -Correct Side, Site, Position Yes -Correct Procedure Yes -Procedure Performed Yes -Type of Procedure Debridement -Clinical Debridement Subcutaneous -Post Debridement Size (cm) - Length 0.7 -Post Debridement Size (cm) - Width 0.6 -Post Debridement Size (cm) - Depth 0.1 -Total Square Cm 0.42 -Wound/Ulcer Outcome Not Healed -Ulcer Cleansing Rinsed/ Irrigated with Saline -Foul Odor after Cleansing No -Bioengineered Tissue No -Bleeding Controlled with Pressure -Offloading No -Treatment Response Procedure Tolerated Well #6 L Post -Time -Correct Patient -Correct Side, Site, Position -Correct Procedure -Procedure Performed -Type of Procedure -Clinical Debridement -Post Debridement Size (cm) - Length -Post Debridement Size (cm) - Width -Post Debridement Size (cm) - Depth -Total Square Cm -Wound/Ulcer Outcome -Ulcer Cleansing -Foul Odor after Cleansing -Bioengineered Tissue -Bleeding Controlled with -Offloading -Treatment Response #5 R Lat LE -Time -Correct Patient -Correct Side, Site, Position -Correct Procedure -Procedure Performed -Type of Procedure -Clinical Debridement -Post Debridement Size (cm) - Length -Post Debridement Size (cm) - Width -Post Debridement Size (cm) - Depth -Total Square Cm -Wound/Ulcer Outcome -Ulcer Cleansing -Foul Odor after Cleansing -Bioengineered Tissue -Bleeding Controlled with -Offloading -Treatment Response #4 R post LE -Time -Correct Patient -Correct Side, Site, Position -Correct Procedure -Procedure Performed -Type of Procedure -Clinical Debridement -Post Debridement Size (cm) - Length -Post Debridement Size (cm) - Width -Post Debridement Size (cm) - Depth -Total Square Cm -Wound/Ulcer Outcome -Ulcer Cleansing -Foul Odor after Cleansing -Bioengineered Tissue -Bleeding Controlled with -Offloading -Treatment Response #3 R Med LE -Time -Correct Patient -Correct Side, Site, Position -Correct Procedure -Procedure Performed -Type of Procedure -Clinical Debridement -Post Debridement Size (cm) - Length -Post Debridement Size (cm) - Width -Post Debridement Size (cm) - Depth -Total Square Cm -Wound/Ulcer Outcome -Ulcer Cleansing -Foul Odor after Cleansing -Bioengineered Tissue -Bleeding Controlled with -Offloading -Treatment Response #2 R [place] Cluster -Time -Correct Patient -Correct Side, Site, Position -Correct Procedure -Procedure Performed -Type of Procedure -Clinical Debridement -Post Debridement Size (cm) - Length -Post Debridement Size (cm) - Width -Post Debridement Size (cm) - Depth -Total Square Cm -Wound/Ulcer Outcome -Ulcer Cleansing -Foul Odor after Cleansing -Bleeding Controlled with -Treatment Response #1 R 2nd toe amp -Time -Correct Patient -Correct Side, Site, Position -Correct Procedure -Procedure Performed -Type of Procedure -Clinical Debridement -Post Debridement Size (cm) - Length -Post Debridement Size (cm) - Width -Post Debridement Size (cm) - Depth -Total Square Cm -Wound/Ulcer Outcome -Ulcer Cleansing -Foul Odor after Cleansing -Bioengineered Tissue -Bleeding Controlled with -Offloading -Treatment Response Pain Scale: 0-10 Numeric Is Patient Pain Free? Yes Wound debrided: Right Knee Wound Grade/Stage: Stage III Type of Debridement: Excisional debridement Anesthesia Used: 4% Lidocaine Solution Depth: Down to and including healthy tissue, in the subcutaneous layer Percentage of wound debrided: 100 Instrument Used: 3mm curette Tissue Removed: Slough and devitalized tissue Severity: Fat Layer Exposed Amount of bleeding with debridement: Mild Bleeding Controlled with: Pressure Patient tolerated procedure well Assessment/Plan Active Problems (Last Updated 09/28/18 @ 12:41 by Geraldine Steele) Ulcer of right foot with fat layer exposed (Chronic) Skin ulcer of right knee with fat layer exposed (Chronic) Delayed wound healing (Chronic) Ulcer of right lower extremity with fat layer exposed (Chronic) Ulcer of left lower extremity with fat layer exposed (Chronic) Type 2 diabetes mellitus with diabetic polyneuropathy (Chronic) Malnutrition (Chronic) Assessment: Open second and third ray resection secondary to 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 Diabetic neuropathy. Malnutrition suspected. 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 Delayed healing. Gait impairment and fall risk. Other comorbidities, right knee ulcer Plan: No new concerns at this time. Slowly improving. Debridement done as documented above, procedure was well tolerated. Continue Pomogran with adaptic over top. Change every other day. Continue Increased protein intake and elevate lower extremities when seated and in bed. Other wound care management per Dr. Gruber. Cureently complex care. Follow up in 2 weeks.
--- NOTE | 2019-02-15 14:13 | PN.PCM_ITS ---
(1) Ulcer of right lower extremity with fat layer exposed Status: Chronic Code(s): L97.912 - Non-pressure chronic ulcer of unspecified part of right lower leg with fat layer exposed (2) Ulcer of left lower extremity with fat layer exposed Status: Chronic Code(s): L97.922 - Non-pressure chronic ulcer of unspecified part of left lower leg with fat layer exposed (3) Ulcer of right foot with fat layer exposed Status: Chronic Code(s): L97.512 - Non-pressure chronic ulcer of other part of right foot with fat layer exposed (4) Delayed wound healing Status: Chronic Code(s): T14.8XXD - Other injury of unspecified body region, subsequent encounter (5) Malnutrition Status: Chronic Code(s): E46 - Unspecified protein-calorie malnutrition (6) Type 2 diabetes mellitus with diabetic polyneuropathy Status: Chronic Code(s): E11.42 - Type 2 diabetes mellitus with diabetic polyneuropathy Type of Wound Chief Complaint: right and left Leg ulcers and right foot ulcer History of Wound: Mr. Arguello is a 63-year-old male with multiple comorbidities follows up for delayed healing ulcers to the right foot as well as bilateral legs. It is noted he previously had widespread debridements and fasciotomies performed to bilateral lower extremities secondary to life-threatening and limb threatening infection; this was previously performed at [facility]. He continues to follow with Dr. Gilbert for his right knee ulcer. He denies chills, fever or otherwise feeling of unwell. He presents today with his . He still refuses advanced wound care product application. He refuses hyperbaric oxygen therapy treatment. He elects to proceed with a palliative care plan because he is refusing the other treatment recommendations. Progress of Wound: Stable. No new concerns at this time. - Physical Exam Vital Signs Temp Pulse Resp BP 97.6 F L 82 18 132/84 H 02/15/19 09:44 02/15/19 09:44 02/15/19 09:44 02/15/19 09:44 General: Alert, Oriented x3, Cooperative HEENT: Atraumatic Extremities: No cyanosis, Capillary Refill Less than 3 Seconds, No Calf Tenderness - Negative Errol and Lobato sign, Diminished Peripheral Pulses, Edema - Mild, Tenderness - No pain with ulcer manipulation Skin: Ulcer/ Wound - No purulence, erythema, streaking, odor, or infection. There is some healthy appearing Achilles tendon to the right posterior leg his has been applying Santyl to. There are no eschars or exposed bone today. The peripheral skin is hairless and atrophic. Wound Measurements and Assessment WC - Nurse 1 - General Ulcer Measurement Start: 02/01/19 08:12 Freq: Status: Active Protocol: Activity Type Activity Date Activity User E-Sign Co-Sign Detail Recorded Client Recorded Date Recorded By Document 02/15/19 09:44 DV [id number] 02/15/19 10:13 DV 02/15/19 09:44 Wound Center Nurse 1 [Ulcer Assessment] #12 left plantar -Combined with other wound No -Current Size (cm) - Length 0.2 -Current Size (cm) - Width 0.2 -Current Size (cm) - Depth 0.3 -Total Square Cm 0.04 -Photo Taken No -Tunneling No -Undermining/Tunneling No -Circular Undermining No -Classification - Thickness Full Thickness without Exposed Support Structure -Exudate Amt Small -Exudate Type Serous -Wound Margin Thickened & Rolled Under -Granulation Amt None Present (0 %) -Granulation Quality N/A -Slough/Fibrin Yes -Necrosis Amt None Present (0 %) -Necrotic Tissue Type Adherent Slough -Structure Exposed None/Limited to Skin Breakdown -Texture (Lisa-wound Skin Appearance) No Abnormality Assessed -Moisture (Lisa-wound Skin Appearance No Abnormality ) Assessed Dry/Scaly -Color (Lisa-wound Skin Appearance) No Abnormality Assessed -Temperature (Lisa-wound Skin No Abnormality Appearance) (Pt Warm) -Tenderness on Palpation (Lisa-wound No Skin Appearance) -Ulcer Cleansing Rinsed/ Irrigated with Saline -Foul Odor after Cleansing No -Anesthetic Used 4% Lidocaine Solution #11 RIGHT MEDIAL FOOT -Combined with other wound No -Current Size (cm) - Length 12.2 -Current Size (cm) - Width 1.8 -Current Size (cm) - Depth 0.5 -Total Square Cm 21.96 -Photo Taken No -Tunneling No -Undermining/Tunneling No -Circular Undermining No -Classification - Thickness Full Thickness without Exposed Support Structure -Exudate Amt Small -Wound Margin Fibrotic Scar, Thickened Scar -Granulation Amt None Present (0 %) -Granulation Quality N/A -Slough/Fibrin Yes -Necrosis Amt Large (67-100%) -Necrotic Tissue Type Adherent Slough -Structure Exposed None/Limited to Skin Breakdown -Texture (Lisa-wound Skin Appearance) Assessed Scarring -Moisture (Lisa-wound Skin Appearance Assessed ) Dry/Scaly -Color (Lisa-wound Skin Appearance) Assessed -Temperature (Lisa-wound Skin No Abnormality Appearance) (Pt Warm) -Tenderness on Palpation (Lisa-wound No Skin Appearance) -Ulcer Cleansing soap -Foul Odor after Cleansing No -Anesthetic Used 5% Lidocaine Gel #8 r Knee -Combined with other wound No -Current Size (cm) - Length 0.7 -Current Size (cm) - Width 0.7 -Current Size (cm) - Depth 0.3 -Total Square Cm 0.49 -Photo Taken No -Tunneling No -Undermining/Tunneling No -Circular Undermining No -Exudate Amt Small -Exudate Type Serous -Wound Margin Thickened & Rolled Under -Granulation Amt None Present (0 %) -Granulation Quality N/A -Slough/Fibrin Yes -Necrosis Amt Large (67-100%) -Necrotic Tissue Type Adherent Slough -Structure Exposed None/Limited to Skin Breakdown -Texture (Lisa-wound Skin Appearance) No Abnormality Assessed -Moisture (Lisa-wound Skin Appearance Assessed ) Dry/Scaly -Color (Lisa-wound Skin Appearance) Assessed Hemosiderin Staining -Temperature (Lisa-wound Skin No Abnormality Appearance) (Pt Warm) -Tenderness on Palpation (Lisa-wound No Skin Appearance) -Ulcer Cleansing soap -Anesthetic Used 4% Lidocaine Solution #6 L Post -Combined with other wound No -Current Size (cm) - Length 20.8 -Current Size (cm) - Width 1.5 -Current Size (cm) - Depth 0.5 -Total Square Cm 31.20 -Photo Taken No -Tunneling No -Undermining/Tunneling No -Circular Undermining No -Exudate Amt Small -Exudate Type Serous -Wound Margin Fibrotic Scar, Thickened Scar -Granulation Quality N/A -Slough/Fibrin Yes -Necrosis Amt Large (67-100%) -Necrotic Tissue Type Adherent Slough -Structure Exposed None/Limited to Skin Breakdown -Texture (Lisa-wound Skin Appearance) Assessed Scarring -Moisture (Lisa-wound Skin Appearance Assessed ) Dry/Scaly -Color (Lisa-wound Skin Appearance) No Abnormality Assessed -Temperature (Lisa-wound Skin No Abnormality Appearance) (Pt Warm) -Ulcer Cleansing soap -Foul Odor after Cleansing No -Anesthetic Used 4% Lidocaine Solution #5 R Lat LE -Combined with other wound No -Current Size (cm) - Length 1.8 -Current Size (cm) - Width 1.0 -Current Size (cm) - Depth 0.1 -Total Square Cm 1.80 -Photo Taken No -Epithelialization None Present -Undermining/Tunneling No -Circular Undermining No -Exudate Amt Small -Exudate Type Serosanguineous -Wound Margin Fibrotic Scar, Thickened Scar -Granulation Amt None Present (0 %) -Granulation Quality N/A -Slough/Fibrin Yes -Necrosis Amt Large (67-100%) -Necrotic Tissue Type Adherent Slough -Structure Exposed None/Limited to Skin Breakdown -Texture (Lisa-wound Skin Appearance) Assessed Scarring -Moisture (Lisa-wound Skin Appearance No Abnormality ) Dry/Scaly -Color (Lisa-wound Skin Appearance) No Abnormality Assessed -Temperature (Lisa-wound Skin No Abnormality Appearance) (Pt Warm) -Tenderness on Palpation (Lisa-wound No Skin Appearance) -Ulcer Cleansing soap -Foul Odor after Cleansing No -Anesthetic Used 5% Lidocaine Gel #4 R post LE -Combined with other wound No -Current Size (cm) - Length 2.6 -Current Size (cm) - Width 1.7 -Current Size (cm) - Depth 0.3 -Total Square Cm 4.42 -Photo Taken No -Tunneling No -Undermining/Tunneling No -Circular Undermining No -Exudate Amt Small -Exudate Type Serosanguineous -Wound Margin Thickened & Rolled Under -Granulation Amt None Present (0 %) -Granulation Quality N/A -Slough/Fibrin Yes -Necrosis Amt Large (67-100%) -Necrotic Tissue Type Adherent Slough -Structure Exposed None/Limited to Skin Breakdown -Texture (Lisa-wound Skin Appearance) Assessed Scarring -Moisture (Lisa-wound Skin Appearance Assessed ) Dry/Scaly -Color (Lisa-wound Skin Appearance) No Abnormality Assessed -Temperature (Lisa-wound Skin No Abnormality Appearance) (Pt Warm) -Tenderness on Palpation (Lisa-wound No Skin Appearance) -Ulcer Cleansing soap -Foul Odor after Cleansing No -Anesthetic Used 4% Lidocaine Solution #3 R Med LE -Combined with other wound No -Current Size (cm) - Length 2.6 -Current Size (cm) - Width 0.5 -Current Size (cm) - Depth 0.7 -Total Square Cm 1.30 -Photo Taken No -Epithelialization None Present -Undermining/Tunneling No -Circular Undermining No -Exudate Amt Small -Exudate Type Serous -Wound Margin Thickened & Rolled Under -Granulation Amt None Present (0 %) -Granulation Quality N/A -Slough/Fibrin Yes -Necrosis Amt Large (67-100%) -Necrotic Tissue Type Adherent Slough -Structure Exposed None/Limited to Skin Breakdown -Texture (Lisa-wound Skin Appearance) Assessed Localized Edema Scarring -Moisture (Lisa-wound Skin Appearance Assessed ) Dry/Scaly -Color (Lisa-wound Skin Appearance) No Abnormality Assessed -Temperature (Lisa-wound Skin No Abnormality Appearance) (Pt Warm) -Tenderness on Palpation (Lisa-wound No Skin Appearance) -Ulcer Cleansing soap -Foul Odor after Cleansing No -Anesthetic Used 4% Lidocaine Solution #2 R [place] Cluster -Combined with other wound No -Current Size (cm) - Length 9.0 -Current Size (cm) - Width 2.0 -Current Size (cm) - Depth 0.1 -Total Square Cm 18.00 -Photo Taken No -Tunneling No -Undermining/Tunneling No -Circular Undermining No -Classification - Thickness Full Thickness without Exposed Support Structure -Granulation Amt None Present (0 %) -Granulation Quality N/A -Slough/Fibrin Yes -Necrosis Amt Large (67-100%) -Necrotic Tissue Type Adherent Slough -Structure Exposed None/Limited to Skin Breakdown -Texture (Lisa-wound Skin Appearance) Assessed -Moisture (Lisa-wound Skin Appearance Assessed ) -Color (Lisa-wound Skin Appearance) Assessed -Temperature (Lisa-wound Skin No Abnormality Appearance) (Pt Warm) -Ulcer Cleansing soap #1 R 2nd toe amp -Combined with other wound No -Current Size (cm) - Length 2.5 -Current Size (cm) - Width 0.5 -Current Size (cm) - Depth 0.6 -Total Square Cm 1.25 -Photo Taken No -Epithelialization None Present -Tunneling No -Undermining/Tunneling No -Circular Undermining No -Classification - Thickness Full Thickness without Exposed Support Structure -Exudate Amt Small -Exudate Type Serous -Wound Margin Fibrotic Scar, Thickened Scar -Granulation Amt None Present (0 %) -Granulation Quality N/A -Slough/Fibrin Yes -Necrosis Amt Large (67-100%) -Necrotic Tissue Type Adherent Slough -Structure Exposed None/Limited to Skin Breakdown -Texture (Lisa-wound Skin Appearance) Assessed -Moisture (Lisa-wound Skin Appearance Assessed ) -Color (Lisa-wound Skin Appearance) Assessed -Temperature (Lisa-wound Skin No Abnormality Appearance) (Pt Warm) -Tenderness on Palpation (Lisa-wound No Skin Appearance) -Ulcer Cleansing soap -Foul Odor after Cleansing No -Anesthetic Used 4% Lidocaine Solution WC - Nurse 2 - General Ulcer CM Notes Start: 02/01/19 08:12 Freq: Status: Active Protocol: Activity Type Activity Date Activity User E-Sign Co-Sign Detail Recorded Client Recorded Date Recorded By Document 02/15/19 10:17 DV [id number] 02/15/19 10:24 DV Document 02/15/19 10:55 MW [id number] 02/15/19 10:57 MW 02/15/19 02/15/19 10:17 10:55 Wound Center Nurse 2 [Procedure/Treatment] #12 left plantar -Time 10:19 -Correct Patient Yes -Correct Side, Site, Position Yes -Correct Procedure Yes -Procedure Performed Yes -Type of Procedure Debridement -Clinical Debridement Subcutaneous -Post Debridement Size (cm) - Length 0.3 -Post Debridement Size (cm) - Width 0.3 -Post Debridement Size (cm) - Depth 0.3 -Total Square Cm 0.09 #11 RIGHT MEDIAL FOOT -Time 10:19 -Correct Patient Yes -Correct Side, Site, Position Yes -Correct Procedure Yes -Procedure Performed Yes -Type of Procedure Debridement -Clinical Debridement Subcutaneous -Post Debridement Size (cm) - Length 12.3 -Post Debridement Size (cm) - Width 1.9 -Post Debridement Size (cm) - Depth 0.5 -Total Square Cm 23.37 -Treatment Response Procedure Tolerated Well #8 r Knee -Time 10:56 -Correct Patient Yes -Correct Side, Site, Position Yes -Correct Procedure Yes -Procedure Performed Yes -Type of Procedure Debridement -Clinical Debridement Subcutaneous -Post Debridement Size (cm) - Length 0.7 -Post Debridement Size (cm) - Width 0.6 -Post Debridement Size (cm) - Depth 0.1 -Total Square Cm 0.42 -Wound/Ulcer Outcome Not Healed -Ulcer Cleansing Rinsed/ Irrigated with Saline -Foul Odor after Cleansing No -Bioengineered Tissue No -Bleeding Controlled with Pressure -Offloading No -Treatment Response Procedure Tolerated Well #6 L Post -Time 10:19 -Correct Patient Yes -Correct Side, Site, Position Yes -Correct Procedure Yes -Procedure Performed Yes -Type of Procedure Debridement -Clinical Debridement Subcutaneous -Post Debridement Size (cm) - Length 20.9 -Post Debridement Size (cm) - Width 1.6 -Post Debridement Size (cm) - Depth 0.5 -Total Square Cm 33.44 -Treatment Response Procedure Tolerated Well #5 R Lat LE -Time 10:19 -Correct Patient Yes -Correct Side, Site, Position Yes -Correct Procedure Yes -Procedure Performed Yes -Type of Procedure Debridement -Clinical Debridement Subcutaneous -Post Debridement Size (cm) - Length 1.9 -Post Debridement Size (cm) - Width 1.1 -Post Debridement Size (cm) - Depth 0.1 -Total Square Cm 2.09 -Treatment Response Procedure Tolerated Well #4 R post LE -Time 10:19 -Correct Patient Yes -Correct Side, Site, Position Yes -Correct Procedure Yes -Procedure Performed Yes -Type of Procedure Debridement -Clinical Debridement Subcutaneous -Post Debridement Size (cm) - Length 2.7 -Post Debridement Size (cm) - Width 1.8 -Post Debridement Size (cm) - Depth 0.3 -Total Square Cm 4.86 -Treatment Response Procedure Tolerated Well #3 R Med LE -Time 10:19 -Correct Patient Yes -Correct Side, Site, Position Yes -Correct Procedure Yes -Procedure Performed Yes -Type of Procedure Debridement -Clinical Debridement Subcutaneous -Post Debridement Size (cm) - Length 2.7 -Post Debridement Size (cm) - Width 0.6 -Post Debridement Size (cm) - Depth 0.7 -Total Square Cm 1.62 -Wound/Ulcer Outcome Not Healed -Treatment Response Procedure Tolerated Well #2 R [place]rell[place] Cluster -Time 10:19 -Correct Patient Yes -Correct Side, Site, Position Yes -Correct Procedure Yes -Procedure Performed Yes -Type of Procedure Debridement -Clinical Debridement Subcutaneous -Post Debridement Size (cm) - Length 9.1 -Post Debridement Size (cm) - Width 2.1 -Post Debridement Size (cm) - Depth 0.1 -Total Square Cm 19.11 -Treatment Response Procedure Tolerated Well #1 R 2nd toe amp -Time 10:38 -Correct Patient Yes -Correct Side, Site, Position Yes -Correct Procedure Yes -Procedure Performed Yes -Type of Procedure Debridement -Clinical Debridement Subcutaneous -Post Debridement Size (cm) - Length 2.6 -Post Debridement Size (cm) - Width 0.6 -Post Debridement Size (cm) - Depth 0.6 -Total Square Cm 1.56 -Treatment Response Procedure Tolerated Well [See Physician Procedure note for Specifics] Pain Scale: 0-10 Numeric [Pain] -Is Patient Pain Free? Yes Yes Musculoskeletal: No Tenderness to Palpation of Joints or Extremities, Muscle Wasting Neurological: - - Lack of epicritic sensation light touch Psych/Mental Status: Normal Affect, Appropriate Debridement Note Post-Debridement Measurements/Treatment WC - Nurse 2 - General Ulcer CM Notes Start: 02/01/19 08:12 Freq: Status: Active Protocol: Activity Type Activity Date Activity User E-Sign Co-Sign Detail Recorded Client Recorded Date Recorded By Document 02/01/19 08:51 MW [id number] 02/01/19 08:56 MW Document 02/01/19 09:09 AN [id number] 02/01/19 09:20 AN Document 02/15/19 10:17 DV [id number] 02/15/19 10:24 DV Document 02/15/19 10:55 MW [id number] 02/15/19 10:57 MW 02/01/19 02/01/19 02/15/19 08:51 09:09 10:17 Wound Center Nurse 2 #12 left plantar -Time 09:12 10:19 -Correct Patient Yes Yes -Correct Side, Site, Position Yes Yes -Correct Procedure Yes Yes -Procedure Performed Yes Yes -Type of Procedure Debridement Debridement -Clinical Debridement Subcutaneous Subcutaneous -Post Debridement Size (cm) - Length 0.3 0.3 -Post Debridement Size (cm) - Width 0.3 0.3 -Post Debridement Size (cm) - Depth 0.1 0.3 -Total Square Cm 0.09 0.09 -Wound/Ulcer Outcome Not Healed -Ulcer Cleansing Rinsed/ Irrigated with Saline -Foul Odor after Cleansing No -Bioengineered Tissue No -Bleeding Controlled with Pressure -Offloading No -Treatment Response Procedure Not Tolerated Well #11 RIGHT MEDIAL FOOT -Time 09:13 10:19 -Correct Patient Yes Yes -Correct Side, Site, Position Yes Yes -Correct Procedure Yes Yes -Procedure Performed Yes Yes -Type of Procedure Debridement Debridement -Clinical Debridement Subcutaneous Subcutaneous -Post Debridement Size (cm) - Length 3 12.3 -Post Debridement Size (cm) - Width 1 1.9 -Post Debridement Size (cm) - Depth 0.1 0.5 -Total Square Cm 3 23.37 -Wound/Ulcer Outcome Not Healed -Ulcer Cleansing Rinsed/ Irrigated with Saline -Foul Odor after Cleansing No -Bioengineered Tissue No -Bleeding Controlled with Pressure -Offloading Yes -Type of Offloading Surgical Shoe -Treatment Response Procedure Procedure Tolerated Well Tolerated Well #8 r Knee -Time 08:51 -Correct Patient Yes -Correct Side, Site, Position Yes -Correct Procedure Yes -Procedure Performed Yes -Type of Procedure Debridement -Clinical Debridement Subcutaneous -Post Debridement Size (cm) - Length 0.7 -Post Debridement Size (cm) - Width 0.7 -Post Debridement Size (cm) - Depth 0.2 -Total Square Cm 0.49 -Wound/Ulcer Outcome Not Healed -Ulcer Cleansing Rinsed/ Irrigated with Saline -Foul Odor after Cleansing No -Bioengineered Tissue No -Bleeding Controlled with Pressure -Offloading No -Treatment Response Procedure Tolerated Well #6 L Post -Time 09:14 10:19 -Correct Patient Yes Yes -Correct Side, Site, Position Yes Yes -Correct Procedure Yes Yes -Procedure Performed Yes Yes -Type of Procedure Debridement Debridement -Clinical Debridement Subcutaneous Subcutaneous -Post Debridement Size (cm) - Length 15.6 20.9 -Post Debridement Size (cm) - Width 2 1.6 -Post Debridement Size (cm) - Depth 0.6 0.5 -Total Square Cm 31.2 33.44 -Wound/Ulcer Outcome Not Healed -Ulcer Cleansing Rinsed/ Irrigated with Saline -Foul Odor after Cleansing No -Bioengineered Tissue No -Bleeding Controlled with Pressure -Offloading No -Treatment Response Procedure Procedure Tolerated Well Tolerated Well #5 R Lat LE -Time 09:15 10:19 -Correct Patient Yes Yes -Correct Side, Site, Position Yes Yes -Correct Procedure Yes Yes -Procedure Performed Yes Yes -Type of Procedure Debridement -Clinical Debridement Subcutaneous -Post Debridement Size (cm) - Length 1.6 1.9 -Post Debridement Size (cm) - Width 1 1.1 -Post Debridement Size (cm) - Depth 0.1 0.1 -Total Square Cm 1.6 2.09 -Wound/Ulcer Outcome Not Healed -Ulcer Cleansing Rinsed/ Irrigated with Saline -Foul Odor after Cleansing No -Bioengineered Tissue No -Bleeding Controlled with Pressure -Offloading No -Treatment Response Procedure Procedure Tolerated Well Tolerated Well #4 R post LE -Time 09:16 10:19 -Correct Patient Yes Yes -Correct Side, Site, Position Yes Yes -Correct Procedure Yes Yes -Procedure Performed Yes Yes -Type of Procedure Debridement Debridement -Clinical Debridement Subcutaneous Subcutaneous -Post Debridement Size (cm) - Length 2.8 2.7 -Post Debridement Size (cm) - Width 2.1 1.8 -Post Debridement Size (cm) - Depth 0.1 0.3 -Total Square Cm 5.88 4.86 -Wound/Ulcer Outcome Not Healed -Ulcer Cleansing Rinsed/ Irrigated with Saline -Foul Odor after Cleansing No -Bioengineered Tissue No -Bleeding Controlled with Pressure -Offloading No -Treatment Response Procedure Procedure Tolerated Well Tolerated Well #3 R Med LE -Time 09:17 10:19 -Correct Patient Yes Yes -Correct Side, Site, Position Yes Yes -Correct Procedure Yes Yes -Procedure Performed Yes Yes -Type of Procedure Debridement Debridement -Clinical Debridement Subcutaneous Subcutaneous -Post Debridement Size (cm) - Length 3 2.7 -Post Debridement Size (cm) - Width 1 0.6 -Post Debridement Size (cm) - Depth 0.1 0.7 -Total Square Cm 3 1.62 -Wound/Ulcer Outcome Not Healed Not Healed -Ulcer Cleansing Rinsed/ Irrigated with Saline -Foul Odor after Cleansing No -Bioengineered Tissue No -Bleeding Controlled with Pressure -Offloading No -Treatment Response Procedure Procedure Tolerated Well Tolerated Well #2 R [place] Cluster -Time 09:18 10:19 -Correct Patient Yes Yes -Correct Side, Site, Position Yes Yes -Correct Procedure Yes Yes -Procedure Performed Yes Yes -Type of Procedure Debridement Debridement -Clinical Debridement Subcutaneous Subcutaneous -Post Debridement Size (cm) - Length 9.7 9.1 -Post Debridement Size (cm) - Width 2.6 2.1 -Post Debridement Size (cm) - Depth 0.2 0.1 -Total Square Cm 25.22 19.11 -Wound/Ulcer Outcome Not Healed -Ulcer Cleansing Rinsed/ Irrigated with Saline -Foul Odor after Cleansing No -Bleeding Controlled with Pressure -Treatment Response Procedure Procedure Tolerated Well Tolerated Well #1 R 2nd toe amp -Time 09:18 10:38 -Correct Patient Yes Yes -Correct Side, Site, Position Yes Yes -Correct Procedure Yes Yes -Procedure Performed Yes Yes -Type of Procedure Debridement Debridement -Clinical Debridement Subcutaneous Subcutaneous -Post Debridement Size (cm) - Length 3.1 2.6 -Post Debridement Size (cm) - Width 1.9 0.6 -Post Debridement Size (cm) - Depth 0.1 0.6 -Total Square Cm 5.89 1.56 -Wound/Ulcer Outcome Amputation -Ulcer Cleansing Rinsed/ Irrigated with Saline -Foul Odor after Cleansing No -Bioengineered Tissue No -Bleeding Controlled with Pressure -Offloading No -Treatment Response Procedure Procedure Tolerated Well Tolerated Well Pain Scale: 0-10 Numeric Is Patient Pain Free? Yes Yes 02/15/19 10:55 Wound Center Nurse 2 #12 left plantar -Time -Correct Patient -Correct Side, Site, Position -Correct Procedure -Procedure Performed -Type of Procedure -Clinical Debridement -Post Debridement Size (cm) - Length -Post Debridement Size (cm) - Width -Post Debridement Size (cm) - Depth -Total Square Cm -Wound/Ulcer Outcome -Ulcer Cleansing -Foul Odor after Cleansing -Bioengineered Tissue -Bleeding Controlled with -Offloading -Treatment Response #11 RIGHT MEDIAL FOOT -Time -Correct Patient -Correct Side, Site, Position -Correct Procedure -Procedure Performed -Type of Procedure -Clinical Debridement -Post Debridement Size (cm) - Length -Post Debridement Size (cm) - Width -Post Debridement Size (cm) - Depth -Total Square Cm -Wound/Ulcer Outcome -Ulcer Cleansing -Foul Odor after Cleansing -Bioengineered Tissue -Bleeding Controlled with -Offloading -Type of Offloading -Treatment Response #8 r Knee -Time 10:56 -Correct Patient Yes -Correct Side, Site, Position Yes -Correct Procedure Yes -Procedure Performed Yes -Type of Procedure Debridement -Clinical Debridement Subcutaneous -Post Debridement Size (cm) - Length 0.7 -Post Debridement Size (cm) - Width 0.6 -Post Debridement Size (cm) - Depth 0.1 -Total Square Cm 0.42 -Wound/Ulcer Outcome Not Healed -Ulcer Cleansing Rinsed/ Irrigated with Saline -Foul Odor after Cleansing No -Bioengineered Tissue No -Bleeding Controlled with Pressure -Offloading No -Treatment Response Procedure Tolerated Well #6 L Post -Time -Correct Patient -Correct Side, Site, Position -Correct Procedure -Procedure Performed -Type of Procedure -Clinical Debridement -Post Debridement Size (cm) - Length -Post Debridement Size (cm) - Width -Post Debridement Size (cm) - Depth -Total Square Cm -Wound/Ulcer Outcome -Ulcer Cleansing -Foul Odor after Cleansing -Bioengineered Tissue -Bleeding Controlled with -Offloading -Treatment Response #5 R Lat LE -Time -Correct Patient -Correct Side, Site, Position -Correct Procedure -Procedure Performed -Type of Procedure -Clinical Debridement -Post Debridement Size (cm) - Length -Post Debridement Size (cm) - Width -Post Debridement Size (cm) - Depth -Total Square Cm -Wound/Ulcer Outcome -Ulcer Cleansing -Foul Odor after Cleansing -Bioengineered Tissue -Bleeding Controlled with -Offloading -Treatment Response #4 R post LE -Time -Correct Patient -Correct Side, Site, Position -Correct Procedure -Procedure Performed -Type of Procedure -Clinical Debridement -Post Debridement Size (cm) - Length -Post Debridement Size (cm) - Width -Post Debridement Size (cm) - Depth -Total Square Cm -Wound/Ulcer Outcome -Ulcer Cleansing -Foul Odor after Cleansing -Bioengineered Tissue -Bleeding Controlled with -Offloading -Treatment Response #3 R Med LE -Time -Correct Patient -Correct Side, Site, Position -Correct Procedure -Procedure Performed -Type of Procedure -Clinical Debridement -Post Debridement Size (cm) - Length -Post Debridement Size (cm) - Width -Post Debridement Size (cm) - Depth -Total Square Cm -Wound/Ulcer Outcome -Ulcer Cleansing -Foul Odor after Cleansing -Bioengineered Tissue -Bleeding Controlled with -Offloading -Treatment Response #2 R [place] Cluster -Time -Correct Patient -Correct Side, Site, Position -Correct Procedure -Procedure Performed -Type of Procedure -Clinical Debridement -Post Debridement Size (cm) - Length -Post Debridement Size (cm) - Width -Post Debridement Size (cm) - Depth -Total Square Cm -Wound/Ulcer Outcome -Ulcer Cleansing -Foul Odor after Cleansing -Bleeding Controlled with -Treatment Response #1 R 2nd toe amp -Time -Correct Patient -Correct Side, Site, Position -Correct Procedure -Procedure Performed -Type of Procedure -Clinical Debridement -Post Debridement Size (cm) - Length -Post Debridement Size (cm) - Width -Post Debridement Size (cm) - Depth -Total Square Cm -Wound/Ulcer Outcome -Ulcer Cleansing -Foul Odor after Cleansing -Bioengineered Tissue -Bleeding Controlled with -Offloading -Treatment Response Pain Scale: 0-10 Numeric Is Patient Pain Free? Yes Wound debrided: anterior leg Laterality: Right Wound Grade/Stage: grade 1 Type of Debridement: Excisional debridement Anesthesia Used: 5% Lidocaine Gel Depth: in the subcutaneous layer Percentage of wound debrided: 100 Instrument Used: #15 blade Tissue Removed: fibrous, devitalized subcutaneous, biofilm, slough Severity: Fat Layer Exposed Amount of bleeding with debridement: Mild Bleeding Controlled with: Pressure Patient tolerated procedure well - Additional Wound Wound debrided: posterior leg Laterality: Right Wound Grade/Stage: grade 1 Type of Debridement: Excisional debridement Anesthesia Used: 5% Lidocaine Gel Depth: in the subcutaneous layer Percentage of wound debrided: 100 Instrument Used: #15 blade Tissue Removed: fibrous, devitalized subcutaneous, biofilm, slough Severity: Fat Layer Exposed Amount of bleeding with debridement: Mild Bleeding Controlled with: Pressure Patient tolerated procedure: Patient tolerated procedure well - Additional Wound Wound debrided: medial leg Laterality: Right Wound Grade/Stage: grade 2 Type of Debridement: Excisional debridement Anesthesia Used: 5% Lidocaine Gel Depth: in the subcutaneous layer Percentage of wound debrided: 100 Instrument Used: #15 blade Tissue Removed: fibrous, devitalized subcutaneous, biofilm, slough Severity: Fat Layer Exposed Amount of bleeding with debridement: Mild Bleeding Controlled with: Pressure Patient tolerated procedure: Patient tolerated procedure well - Additional Wound Wound debrided: lateral leg Laterality: Right Wound Grade/Stage: grade 1 Type of Debridement: Excisional debridement Anesthesia Used: 5% Lidocaine Gel Depth: in the subcutaneous layer Percentage of wound debrided: 100 Instrument Used: #15 blade Tissue Removed: fibrous, devitalized subcutaneous, biofilm, slough Severity: Fat Layer Exposed Amount of bleeding with debridement: Mild Bleeding Controlled with: Pressure Patient tolerated procedure: Patient tolerated procedure well - Additional Wound Wound debrided: foot Laterality: Right Wound Grade/Stage: grade 3 Type of Debridement: Excisional debridement Anesthesia Used: 5% Lidocaine Gel Depth: in the subcutaneous layer Percentage of wound debrided: 100 Instrument Used: #15 blade Tissue Removed: fibrous, devitalized subcutaneous, biofilm, slough Severity: Fat Layer Exposed Amount of bleeding with debridement: Mild Bleeding Controlled with: Pressure, Silver Nitrate Patient tolerated procedure: Patient tolerated procedure well - Additional Wound Wound debrided: medial foot Laterality: Right Wound Grade/Stage: grade 3 Type of Debridement: Excisional debridement Anesthesia Used: 5% Lidocaine Gel Depth: in the subcutaneous layer Percentage of wound debrided: 100 Instrument Used: #15 blade Tissue Removed: fibrous, devitalized subcutaneous, biofilm, slough Severity: Fat Layer Exposed Amount of bleeding with debridement: Mild Bleeding Controlled with: Pressure Patient tolerated procedure: Patient tolerated procedure well - Additional Wound Wound debrided: posterior leg Laterality: Left Wound Grade/Stage: grade 2 Type of Debridement: Excisional debridement Anesthesia Used: 5% Lidocaine Gel Depth: in the subcutaneous layer Percentage of wound debrided: 100 Instrument Used: #15 blade Tissue Removed: fibrous, devitalized subcutaneous, biofilm, slough Severity: Fat Layer Exposed Amount of bleeding with debridement: Mild Bleeding Controlled with: Pressure Patient tolerated procedure: Patient tolerated procedure well Assessment/Plan Assessment: Open second and third ray resection secondary to 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 Diabetic neuropathy. Malnutrition suspected. 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 Delayed healing. Gait impairment and fall risk. Other comorbidities, right knee ulcer Plan: I reviewed and discussed his case today. He was reassured no infections are noted. Debridement done as documented above in the nursing clinical panel. Procedure was well-tolerated. Continue [employer]; to change every 2-3 days. There is concern the ulcer is starting to dry and it is okay to apply hydrogel to the ulcer bed also. Elevate lower extremities when seated and in bed. Continue increased protein intake. I recommend he avoids laying directly on his wounds to reduce pressure, and I was concerned about his perfusion to his limbs. He had an arterial Doppler scheduled with Dr. Morgan's staff on August 02, 2018 and overall perfusion was confirmed; additional intervention or workup was not recommended. It is also noted that he did have venous Doppler performed with reflux evaluation. He did not have evidence of deep venous thrombosis or venous insufficiency at that time; the vessels were compressible. To continue with nutritional supplementation optimize healing; I recommend Juan. I recommend he sustained from smoking and alcohol activities to optimize healing as well. His workup for vasculitis and underlying autoimmune disorder is also pending. A punch biopsy was sent during his last surgical intervention on June 10 and this demonstrated inflammatory changes without malignancy. He had initial screening labs and so far he has a negative RA titer, HL of the 27, KEVIN, anti-CCP, and rheumatoid factor. Several his antibody screenings were not reportable. Hyperbaric oxygen therapy was recommended and it is noted his ejection fraction was most recently 50%. He refuses at this time. Dr. Gilbert continues to manage his right knee ulcer including debridements and traditional wound care plan. He refuses surgical intervention at this time to bilateral lower extremities. I answered all of his questions. Additional amputation of the right foot is not planned due to his fairly nonambulatory status. Smoking cessation was discussed in detail again today and compliance is imperative to optimize healing of surgical success. He reports he is cutting back. I recommend further follow-up at the wound care center 1 week with me, or call sooner if he has any questions. Compliance at this advanced wound care center was reviewed. He understands additional palliative care programs are an option if he does not wish to proceed with advanced wound care opportunities that has been recommended. 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
== END 2019-02-19 23:59 ==
LOC: WC 09:15
PROVIDERS: Family Provider Family Medicine; PCP Family Medicine; Visit Provider Podiatrist
DX: E11.621 Type 2 diabetes mellitus with foot ulcer (principal); E11.622 Type 2 diabetes mellitus with other skin ulcer; L97.812 Non-pressure chronic ulcer of other part of right lower leg with fat layer exposed; E11.42 Type 2 diabetes mellitus with diabetic polyneuropathy; L97.412 Non-pressure chronic ulcer of right heel and midfoot with fat layer exposed; L97.512 Non-pressure chronic ulcer of other part of right foot with fat layer exposed; L97.822 Non-pressure chronic ulcer of other part of left lower leg with fat layer exposed; L97.522 Non-pressure chronic ulcer of other part of left foot with fat layer exposed
CPT/HCPCS: 11042; 11045

== ENCOUNTER 2019-03-15 08:00 | Outpatient (RCR) | payer MEDICARE, SELFPAY ==
[2019-02-20 00:50] VITALS: BP 132/84; PULSE 82; RESP 18; TEMP 36.4
[2019-03-01 08:30] VITALS: BP 141/81; PULSE 92; RESP 18; TEMP 36.3
--- NOTE | 2019-03-01 09:22 | PN.PCM_ITS ---
(1) Skin ulcer of right knee with fat layer exposed Status: Chronic Current Visit: No Code(s): L97.812 - Non-pressure chronic ulcer of other part of right lower leg with fat layer exposed (2) Tobacco dependence due to cigarettes Status: Chronic Current Visit: No Code(s): F17.210 - Nicotine dependence, cigarettes, uncomplicated (3) PVD (peripheral vascular disease) Status: Suspected Current Visit: No Code(s): I73.9 - Peripheral vascular disease, unspecified (4) DM2 (diabetes mellitus, type 2) Status: Chronic Current Visit: No Code(s): E11.9 - Type 2 diabetes mellitus without complications Type of Wound Chief Complaint: right and left Leg ulcers and right foot ulcer History of Wound: Mr. Arguello is a 63-year-old male with multiple comorbidities follows up for delayed healing ulcers to the right foot as well as bilateral legs. It is noted he previously had widespread debridements and fasciotomies performed to bilateral lower extremities secondary to life-threatening and limb threatening infection; this was previously performed at [facility]. He continues to follow with Dr. Gilbert for his right knee ulcer. He denies chills, fever or otherwise feeling of unwell. He presents today with his . He still refuses advanced wound care product application. He refuses hyperbaric oxygen therapy treatment. He elects to proceed with a palliative care plan because he is refusing the other treatment recommendations. Progress of Wound: Stable. No new concerns at this time. - Physical Exam Vital Signs Temp Pulse Resp BP 97.3 F L 92 18 141/81 H 03/01/19 08:30 03/01/19 08:30 03/01/19 08:30 03/01/19 08:30 General: Alert, Oriented x3, Cooperative, No apparent distress HEENT: Atraumatic, Normocephalic Neck: Supple Lungs: Normal air movement Extremities: No cyanosis Skin: Ulcer/ Wound Wound Measurements and Assessment WC - Nurse 1 - General Ulcer Measurement Start: 03/01/19 08:30 Freq: Status: Active Protocol: Activity Type Activity Date Activity User E-Sign Co-Sign Detail Recorded Client Recorded Date Recorded By Document 03/01/19 08:30 RB [id number] 03/01/19 09:06 RB 03/01/19 08:30 Wound Center Nurse 1 [Ulcer Assessment] #12 left plantar -Combined with other wound No -Current Size (cm) - Length 0.1 -Current Size (cm) - Width 0.1 -Current Size (cm) - Depth 0.1 -Total Square Cm 0.01 -Photo Taken Yes -Tunneling No -Undermining/Tunneling No -Circular Undermining No -Exudate Amt None Present -Wound Margin Distinct, Outline Attached -Granulation Amt Small (1-33%) -Granulation Quality [place] -Slough/Fibrin Yes -Necrosis Amt Medium (34-66%) -Necrotic Tissue Type Adherent Slough -Structure Exposed N/A -Texture (Lisa-wound Skin Appearance) Assessed Callus -Moisture (Lisa-wound Skin Appearance Assessed ) -Color (Lisa-wound Skin Appearance) Assessed -Temperature (Lisa-wound Skin No Abnormality Appearance) (Pt Warm) -Tenderness on Palpation (Lisa-wound No Skin Appearance) -Ulcer Cleansing Wound Cleanser -Foul Odor after Cleansing No -Anesthetic Used 4% Lidocaine Solution #11 RIGHT MEDIAL FOOT -Combined with other wound No -Current Size (cm) - Length 1.7 -Current Size (cm) - Width 13 -Current Size (cm) - Depth 0.4 -Total Square Cm 22.1 -Photo Taken Yes -Tunneling No -Undermining/Tunneling No -Circular Undermining No -Exudate Amt Small -Exudate Type Serosanguineous -Wound Margin Distinct, Outline Attached -Granulation Amt Medium (34-66%) -Granulation Quality [place] -Slough/Fibrin Yes -Necrosis Amt Medium (34-66%) -Necrotic Tissue Type Adherent Slough -Structure Exposed N/A -Texture (Lisa-wound Skin Appearance) Assessed -Moisture (Lisa-wound Skin Appearance Assessed ) Dry/Scaly -Color (Lisa-wound Skin Appearance) Assessed -Temperature (Lisa-wound Skin No Abnormality Appearance) (Pt Warm) -Tenderness on Palpation (Lisa-wound No Skin Appearance) -Ulcer Cleansing Wound Cleanser -Anesthetic Used 4% Lidocaine Solution #8 r Knee -Combined with other wound No -Current Size (cm) - Length 0.8 -Current Size (cm) - Width 0.6 -Current Size (cm) - Depth 0.1 -Total Square Cm 0.48 -Photo Taken No -Tunneling No -Undermining/Tunneling No -Circular Undermining No -Exudate Amt Small -Exudate Type Serosanguineous -Wound Margin Distinct, Outline Attached -Granulation Amt Medium (34-66%) -Granulation Quality [place] -Slough/Fibrin Yes -Necrosis Amt Small (1-33%) -Necrotic Tissue Type Adherent Slough -Structure Exposed N/A -Texture (Lisa-wound Skin Appearance) Assessed -Moisture (Lisa-wound Skin Appearance Dry/Scaly ) -Color (Lisa-wound Skin Appearance) Assessed -Temperature (Lisa-wound Skin No Abnormality Appearance) (Pt Warm) -Tenderness on Palpation (Lisa-wound No Skin Appearance) -Ulcer Cleansing Rinsed/ Irrigated with Saline -Foul Odor after Cleansing No -Anesthetic Used 4% Lidocaine Solution #6 L Post -Combined with other wound No -Current Size (cm) - Length 22.5 -Current Size (cm) - Width 2 -Current Size (cm) - Depth 0.5 -Total Square Cm 45.0 -Photo Taken Yes -Tunneling No -Undermining/Tunneling No -Circular Undermining No -Exudate Amt Small -Exudate Type Serosanguineous -Wound Margin Distinct, Outline Attached -Granulation Amt Medium (34-66%) -Granulation Quality [place] -Slough/Fibrin Yes -Necrosis Amt Small (1-33%) -Structure Exposed N/A -Texture (Lisa-wound Skin Appearance) Assessed -Moisture (Lisa-wound Skin Appearance Assessed ) -Color (Lisa-wound Skin Appearance) Assessed -Temperature (Lisa-wound Skin No Abnormality Appearance) (Pt Warm) -Tenderness on Palpation (Lisa-wound No Skin Appearance) -Ulcer Cleansing Rinsed/ Irrigated with Saline -Foul Odor after Cleansing No -Anesthetic Used 4% Lidocaine Solution #5 R Lat LE -Combined with other wound No -Current Size (cm) - Length 2 -Current Size (cm) - Width 1.6 -Current Size (cm) - Depth 0.2 -Total Square Cm 3.2 -Photo Taken Yes -Tunneling No -Undermining/Tunneling No -Circular Undermining No -Exudate Amt Small -Exudate Type Serosanguineous -Wound Margin Distinct, Outline Attached -Granulation Amt Medium (34-66%) -Granulation Quality [place] -Slough/Fibrin Yes -Necrosis Amt Small (1-33%) -Necrotic Tissue Type Adherent Slough -Structure Exposed N/A -Texture (Lisa-wound Skin Appearance) Assessed -Moisture (Lisa-wound Skin Appearance Dry/Scaly ) -Color (Lisa-wound Skin Appearance) Assessed -Temperature (Lisa-wound Skin No Abnormality Appearance) (Pt Warm) -Tenderness on Palpation (Lisa-wound No Skin Appearance) -Ulcer Cleansing Wound Cleanser -Foul Odor after Cleansing No -Anesthetic Used 4% Lidocaine Solution #4 R post LE -Combined with other wound No -Current Size (cm) - Length 3.1 -Current Size (cm) - Width 2.5 -Current Size (cm) - Depth 0.3 -Total Square Cm 7.75 -Photo Taken Yes -Tunneling No -Undermining/Tunneling No -Circular Undermining No -Exudate Amt Small -Exudate Type Serosanguineous -Wound Margin Distinct, Outline Attached -Granulation Amt Medium (34-66%) -Granulation Quality [place] -Slough/Fibrin Yes -Necrosis Amt Small (1-33%) -Necrotic Tissue Type Adherent Slough -Structure Exposed N/A -Texture (Lisa-wound Skin Appearance) Assessed -Moisture (Ilsa-wound Skin Appearance Assessed ) Dry/Scaly -Color (Lisa-wound Skin Appearance) Assessed -Temperature (Lisa-wound Skin No Abnormality Appearance) (Pt Warm) -Tenderness on Palpation (Lisa-wound No Skin Appearance) -Ulcer Cleansing Rinsed/ Irrigated with Saline -Foul Odor after Cleansing No -Anesthetic Used 4% Lidocaine Solution #3 R Med LE -Combined with other wound No -Current Size (cm) - Length 2.5 -Current Size (cm) - Width 0.6 -Current Size (cm) - Depth 0.3 -Total Square Cm 1.50 -Photo Taken Yes -Tunneling No -Undermining/Tunneling No -Circular Undermining No -Exudate Amt Small -Exudate Type Serosanguineous -Wound Margin Distinct, Outline Attached -Granulation Amt Medium (34-66%) -Granulation Quality [place] -Slough/Fibrin Yes -Necrosis Amt Medium (34-66%) -Necrotic Tissue Type Adherent Slough -Structure Exposed N/A -Texture (Lisa-wound Skin Appearance) Assessed -Moisture (Lisa-wound Skin Appearance Dry/Scaly ) -Color (Lisa-wound Skin Appearance) Assessed -Temperature (Lisa-wound Skin No Abnormality Appearance) (Pt Warm) -Tenderness on Palpation (Lisa-wound No Skin Appearance) -Ulcer Cleansing Wound Cleanser -Foul Odor after Cleansing No -Anesthetic Used 4% Lidocaine Solution #2 R [place] Cluster -Combined with other wound No -Current Size (cm) - Length 9 -Current Size (cm) - Width 2.4 -Current Size (cm) - Depth 0.1 -Total Square Cm 21.6 -Photo Taken Yes -Tunneling No -Undermining/Tunneling No -Exudate Amt Small -Exudate Type Serosanguineous -Wound Margin Distinct, Outline Attached -Granulation Amt Medium (34-66%) -Granulation Quality [place] -Slough/Fibrin Yes -Necrosis Amt Medium (34-66%) -Necrotic Tissue Type Adherent Slough -Structure Exposed N/A -Texture (Lisa-wound Skin Appearance) Assessed -Moisture (Lisa-wound Skin Appearance Assessed ) Dry/Scaly -Color (Lisa-wound Skin Appearance) Assessed -Temperature (Lisa-wound Skin No Abnormality Appearance) (Pt Warm) -Tenderness on Palpation (Lisa-wound No Skin Appearance) -Ulcer Cleansing Wound Cleanser -Foul Odor after Cleansing No -Anesthetic Used 4% Lidocaine Solution #1 R 2nd toe amp -Combined with other wound No -Current Size (cm) - Length 2 -Current Size (cm) - Width 0.3 -Current Size (cm) - Depth 0.3 -Total Square Cm 0.6 -Photo Taken Yes -Tunneling No -Undermining/Tunneling No -Circular Undermining No -Exudate Amt Small -Exudate Type Serosanguineous -Wound Margin Distinct, Outline Attached -Granulation Amt Medium (34-66%) -Granulation Quality Red -Slough/Fibrin Yes -Necrosis Amt Small (1-33%) -Necrotic Tissue Type Adherent Slough -Structure Exposed N/A -Texture (Lisa-wound Skin Appearance) Assessed -Moisture (Lisa-wound Skin Appearance Assessed ) Dry/Scaly -Color (Lisa-wound Skin Appearance) Assessed -Temperature (Lisa-wound Skin No Abnormality Appearance) (Pt Warm) -Tenderness on Palpation (Lisa-wound No Skin Appearance) -Ulcer Cleansing Wound Cleanser -Foul Odor after Cleansing No -Anesthetic Used 4% Lidocaine Solution [Edema Assessment] -Lower Limb Edema Present Yes -Right Calf (cm) 34.7 -Right Ankle (cm) 21.4 -Point of measurement (cm from the 35 medial instep) -Point of Measurement (cm from the 20.5 medial instep) Musculoskeletal: No Muscle Wasting Neurological: Cranial nerves II-XII grossly intact Psych/Mental Status: Normal Affect Debridement Note Wound debrided: Right knee. Wound Grade/Stage: Stage III Type of Debridement: Excisional debridement Anesthesia Used: 4% Lidocaine Solution Depth: Down to and including healthy tissue, in the subcutaneous layer Percentage of wound debrided: 100 Instrument Used: 3mm curette Tissue Removed: Slough and devitalized tissue Severity: Fat Layer Exposed Amount of bleeding with debridement: Mild Bleeding Controlled with: Pressure Patient tolerated procedure well Assessment/Plan Assessment: Open second and third ray resection secondary to 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 Diabetic neuropathy. Malnutrition suspected. 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 Delayed healing. Gait impairment and fall risk. Other comorbidities, right knee ulcer Plan: Improving. No new concerns at this time. Debridement done as documented above, procedure was well tolerated. Continue pomogran with adaptic over top. Change every other day. Elevate lower extremity when seated and in bed. smoking cessation and optimal blood sugar control recommended. Continue increased protein intake. All other wound care per Dr. Gruber. Folow up in 2 weeks. Patient is currently managd under palliative care. They were advised to call with any questions or concerns.
--- NOTE | 2019-03-01 19:01 | PN.PCM_ITS ---
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 Status: Chronic Current Visit: Yes Code(s): L97.913 - Non-pressure chronic ulcer of unspecified part of right lower leg with necrosis of muscle (4) Chronic ulcer of left foot with fat layer exposed Status: Chronic Current Visit: Yes Code(s): L97.522 - Non-pressure chronic ulcer of other part of left foot with fat layer exposed (5) Delayed wound healing Status: Chronic Current Visit: Yes Code(s): T14.8XXD - Other injury of unspecified body region, subsequent encounter (6) Type 2 diabetes mellitus with diabetic polyneuropathy Status: Chronic Current Visit: Yes Code(s): E11.42 - Type 2 diabetes mellitus with diabetic polyneuropathy (7) Vasculitis Status: Chronic Current Visit: Yes Code(s): I77.6 - Arteritis, unspecified Type of Wound Chief Complaint: right and left Leg ulcers and right and left foot ulcers History of Wound: Mr. Arguello is a 63-year-old male with multiple comorbidities follows up for delayed healing ulcers to the right and left foot as well as bilateral legs. It is noted he previously had widespread debridements and fasciotomies performed to bilateral lower extremities secondary to life- threatening and limb threatening infection; this was previously performed at [facility]. He continues to follow with Dr. Gilbert for his right knee ulcer. He denies chills, fever or otherwise feeling of unwell. He presents today with his . He still refuses advanced wound care product application. He refuses hyperbaric oxygen therapy treatment. He elects to proceed with a palliative care plan because he is refusing the other treatment recommendations. He is with his today. His dressings are being changed every other day and his reports they are dry Progress of Wound: Stable. - Physical Exam Vital Signs Temp Pulse Resp BP 97.3 F L 92 18 141/81 H 03/01/19 08:30 04/10/19 08:30 03/01/19 08:30 03/01/19 08:30 General: Alert, Oriented x3, Cooperative HEENT: Atraumatic Extremities: No cyanosis, Capillary Refill Less than 3 Seconds, No Calf Tenderness - Negative Errol and [place] sign bilateral, Diminished Peripheral Pulses, Edema, Tenderness - No pain with ulcer manipulation Skin: Ulcer/ Wound - No purulence, erythema, streaking, odor, or infection. There is continued peripheral epithelialization and granulation tissue formation to all ulcer sites. There is some exposed tendinous structures to bilateral posterior leg ulcer sites Wound Measurements and Assessment WC - Nurse 1 - General Ulcer Measurement Start: 03/01/19 08:30 Freq: Status: Active Protocol: Activity Type Activity Date Activity User E-Sign Co-Sign Detail Recorded Client Recorded Date Recorded By Document 03/01/19 08:30 RB [id number] 03/01/19 09:06 RB 03/01/19 08:30 Wound Center Nurse 1 [Ulcer Assessment] #12 left plantar -Combined with other wound No -Current Size (cm) - Length 0.1 -Current Size (cm) - Width 0.1 -Current Size (cm) - Depth 0.1 -Total Square Cm 0.01 -Photo Taken Yes -Tunneling No -Undermining/Tunneling No -Circular Undermining No -Exudate Amt None Present -Wound Margin Distinct, Outline Attached -Granulation Amt Small (1-33%) -Granulation Quality [place] -Slough/Fibrin Yes -Necrosis Amt Medium (34-66%) -Necrotic Tissue Type Adherent Slough -Structure Exposed N/A -Texture (Lisa-wound Skin Appearance) Assessed Callus -Moisture (Lisa-wound Skin Appearance Assessed ) -Color (Lisa-wound Skin Appearance) Assessed -Temperature (Lisa-wound Skin No Abnormality Appearance) (Pt Warm) -Tenderness on Palpation (Lisa-wound No Skin Appearance) -Ulcer Cleansing Wound Cleanser -Foul Odor after Cleansing No -Anesthetic Used 4% Lidocaine Solution #11 RIGHT MEDIAL FOOT -Combined with other wound No -Current Size (cm) - Length 1.7 -Current Size (cm) - Width 13 -Current Size (cm) - Depth 0.4 -Total Square Cm 22.1 -Photo Taken Yes -Tunneling No -Undermining/Tunneling No -Circular Undermining No -Exudate Amt Small -Exudate Type Serosanguineous -Wound Margin Distinct, Outline Attached -Granulation Amt Medium (34-66%) -Granulation Quality [place] -Slough/Fibrin Yes -Necrosis Amt Medium (34-66%) -Necrotic Tissue Type Adherent Slough -Structure Exposed N/A -Texture (Lisa-wound Skin Appearance) Assessed -Moisture (Lisa-wound Skin Appearance Assessed ) Dry/Scaly -Color (Lisa-wound Skin Appearance) Assessed -Temperature (Lisa-wound Skin No Abnormality Appearance) (Pt Warm) -Tenderness on Palpation (Lisa-wound No Skin Appearance) -Ulcer Cleansing Wound Cleanser -Anesthetic Used 4% Lidocaine Solution #8 r Knee -Combined with other wound No -Current Size (cm) - Length 0.8 -Current Size (cm) - Width 0.6 -Current Size (cm) - Depth 0.1 -Total Square Cm 0.48 -Photo Taken No -Tunneling No -Undermining/Tunneling No -Circular Undermining No -Exudate Amt Small -Exudate Type Serosanguineous -Wound Margin Distinct, Outline Attached -Granulation Amt Medium (34-66%) -Granulation Quality [place] -Slough/Fibrin Yes -Necrosis Amt Small (1-33%) -Necrotic Tissue Type Adherent Slough -Structure Exposed N/A -Texture (Lisa-wound Skin Appearance) Assessed -Moisture (Lisa-wound Skin Appearance Dry/Scaly ) -Color (Lisa-wound Skin Appearance) Assessed -Temperature (Lisa-wound Skin No Abnormality Appearance) (Pt Warm) -Tenderness on Palpation (Lisa-wound No Skin Appearance) -Ulcer Cleansing Rinsed/ Irrigated with Saline -Foul Odor after Cleansing No -Anesthetic Used 4% Lidocaine Solution #6 L Post -Combined with other wound No -Current Size (cm) - Length 22.5 -Current Size (cm) - Width 2 -Current Size (cm) - Depth 0.5 -Total Square Cm 45.0 -Photo Taken Yes -Tunneling No -Undermining/Tunneling No -Circular Undermining No -Exudate Amt Small -Exudate Type Serosanguineous -Wound Margin Distinct, Outline Attached -Granulation Amt Medium (34-66%) -Granulation Quality [place] -Slough/Fibrin Yes -Necrosis Amt Small (1-33%) -Structure Exposed N/A -Texture (Lisa-wound Skin Appearance) Assessed -Moisture (Lisa-wound Skin Appearance Assessed ) -Color (Lisa-wound Skin Appearance) Assessed -Temperature (Lisa-wound Skin No Abnormality Appearance) (Pt Warm) -Tenderness on Palpation (Lisa-wound No Skin Appearance) -Ulcer Cleansing Rinsed/ Irrigated with Saline -Foul Odor after Cleansing No -Anesthetic Used 4% Lidocaine Solution #5 R Lat LE -Combined with other wound No -Current Size (cm) - Length 2 -Current Size (cm) - Width 1.6 -Current Size (cm) - Depth 0.2 -Total Square Cm 3.2 -Photo Taken Yes -Tunneling No -Undermining/Tunneling No -Circular Undermining No -Exudate Amt Small -Exudate Type Serosanguineous -Wound Margin Distinct, Outline Attached -Granulation Amt Medium (34-66%) -Granulation Quality [place] -Slough/Fibrin Yes -Necrosis Amt Small (1-33%) -Necrotic Tissue Type Adherent Slough -Structure Exposed N/A -Texture (Lisa-wound Skin Appearance) Assessed -Moisture (Lisa-wound Skin Appearance Dry/Scaly ) -Color (Lisa-wound Skin Appearance) Assessed -Temperature (Lisa-wound Skin No Abnormality Appearance) (Pt Warm) -Tenderness on Palpation (Lisa-wound No Skin Appearance) -Ulcer Cleansing Wound Cleanser -Foul Odor after Cleansing No -Anesthetic Used 4% Lidocaine Solution #4 R post LE -Combined with other wound No -Current Size (cm) - Length 3.1 -Current Size (cm) - Width 2.5 -Current Size (cm) - Depth 0.3 -Total Square Cm 7.75 -Photo Taken Yes -Tunneling No -Undermining/Tunneling No -Circular Undermining No -Exudate Amt Small -Exudate Type Serosanguineous -Wound Margin Distinct, Outline Attached -Granulation Amt Medium (34-66%) -Granulation Quality [place] -Slough/Fibrin Yes -Necrosis Amt Small (1-33%) -Necrotic Tissue Type Adherent Slough -Structure Exposed N/A -Texture (Lisa-wound Skin Appearance) Assessed -Moisture (Lisa-wound Skin Appearance Assessed ) Dry/Scaly -Color (Lisa-wound Skin Appearance) Assessed -Temperature (Ilsa-wound Skin No Abnormality Appearance) (Pt Warm) -Tenderness on Palpation (Lisa-wound No Skin Appearance) -Ulcer Cleansing Rinsed/ Irrigated with Saline -Foul Odor after Cleansing No -Anesthetic Used 4% Lidocaine Solution #3 R Med LE -Combined with other wound No -Current Size (cm) - Length 2.5 -Current Size (cm) - Width 0.6 -Current Size (cm) - Depth 0.3 -Total Square Cm 1.50 -Photo Taken Yes -Tunneling No -Undermining/Tunneling No -Circular Undermining No -Exudate Amt Small -Exudate Type Serosanguineous -Wound Margin Distinct, Outline Attached -Granulation Amt Medium (34-66%) -Granulation Quality [place] -Slough/Fibrin Yes -Necrosis Amt Medium (34-66%) -Necrotic Tissue Type Adherent Slough -Structure Exposed N/A -Texture (Lisa-wound Skin Appearance) Assessed -Moisture (Lisa-wound Skin Appearance Dry/Scaly ) -Color (Lisa-wound Skin Appearance) Assessed -Temperature (Lisa-wound Skin No Abnormality Appearance) (Pt Warm) -Tenderness on Palpation (Lisa-wound No Skin Appearance) -Ulcer Cleansing Wound Cleanser -Foul Odor after Cleansing No -Anesthetic Used 4% Lidocaine Solution #2 R [place] -Combined with other wound No -Current Size (cm) - Length 9 -Current Size (cm) - Width 2.4 -Current Size (cm) - Depth 0.1 -Total Square Cm 21.6 -Photo Taken Yes -Tunneling No -Undermining/Tunneling No -Exudate Amt Small -Exudate Type Serosanguineous -Wound Margin Distinct, Outline Attached -Granulation Amt Medium (34-66%) -Granulation Quality [place] -Slough/Fibrin Yes -Necrosis Amt Medium (34-66%) -Necrotic Tissue Type Adherent Slough -Structure Exposed N/A -Texture (Lisa-wound Skin Appearance) Assessed -Moisture (Lisa-wound Skin Appearance Assessed ) Dry/Scaly -Color (Lisa-wound Skin Appearance) Assessed -Temperature (Lisa-wound Skin No Abnormality Appearance) (Pt Warm) -Tenderness on Palpation (Lisa-wound No Skin Appearance) -Ulcer Cleansing Wound Cleanser -Foul Odor after Cleansing No -Anesthetic Used 4% Lidocaine Solution #1 R 2nd toe amp -Combined with other wound No -Current Size (cm) - Length 2 -Current Size (cm) - Width 0.3 -Current Size (cm) - Depth 0.3 -Total Square Cm 0.6 -Photo Taken Yes -Tunneling No -Undermining/Tunneling No -Circular Undermining No -Exudate Amt Small -Exudate Type Serosanguineous -Wound Margin Distinct, Outline Attached -Granulation Amt Medium (34-66%) -Granulation Quality [place] -Slough/Fibrin Yes -Necrosis Amt Small (1-33%) -Necrotic Tissue Type Adherent Slough -Structure Exposed N/A -Texture (Lisa-wound Skin Appearance) Assessed -Moisture (Lisa-wound Skin Appearance Assessed ) Dry/Scaly -Color (Lisa-wound Skin Appearance) Assessed -Temperature (Lisa-wound Skin No Abnormality Appearance) (Pt Warm) -Tenderness on Palpation (Lisa-wound No Skin Appearance) -Ulcer Cleansing Wound Cleanser -Foul Odor after Cleansing No -Anesthetic Used 4% Lidocaine Solution [Edema Assessment] -Lower Limb Edema Present Yes -Right Calf (cm) 34.7 -Right Ankle (cm) 21.4 -Point of measurement (cm from the 35 medial instep) -Point of Measurement (cm from the 20.5 medial instep) WC - Nurse 2 - General Ulcer CM Notes Start: 03/01/19 08:30 Freq: Status: Active Protocol: Activity Type Activity Date Activity User E-Sign Co-Sign Detail Recorded Client Recorded Date Recorded By Document 03/01/19 09:16 MW [id number] 03/01/19 09:17 MW Document 03/01/19 09:25 JF [id number] 03/01/19 09:37 03/01/19 03/01/19 09:16 09:25 Wound Center Nurse 2 [Procedure/Treatment] #12 left plantar -Time 09:28 -Correct Patient Yes -Correct Side, Site, Position Yes -Correct Procedure Yes -Procedure Performed Yes -Type of Procedure Debridement -Clinical Debridement Subcutaneous -Post Debridement Size (cm) - Length 0.3 -Post Debridement Size (cm) - Width 0.3 -Post Debridement Size (cm) - Depth 0.1 -Total Square Cm 0.09 -Wound/Ulcer Outcome Not Healed -Ulcer Cleansing Rinsed/ Irrigated with Saline -Foul Odor after Cleansing No -Bioengineered Tissue No -Bleeding Controlled with Pressure -Offloading No -Treatment Response Procedure Tolerated Well #11 RIGHT MEDIAL FOOT -Time 09:25 -Correct Patient Yes -Correct Side, Site, Position Yes -Correct Procedure Yes -Procedure Performed Yes -Type of Procedure Debridement -Clinical Debridement Subcutaneous -Post Debridement Size (cm) - Length 1.8 -Post Debridement Size (cm) - Width 13 -Post Debridement Size (cm) - Depth 0.4 -Total Square Cm 23.4 -Wound/Ulcer Outcome Not Healed -Ulcer Cleansing Rinsed/ Irrigated with Saline -Foul Odor after Cleansing No -Bioengineered Tissue No -Bleeding Controlled with Pressure -Offloading No -Treatment Response Procedure Tolerated Well #8 r Knee -Time 09:16 -Correct Patient Yes -Correct Side, Site, Position Yes -Correct Procedure Yes -Procedure Performed Yes -Type of Procedure Debridement -Clinical Debridement Subcutaneous -Post Debridement Size (cm) - Length 0.5 -Post Debridement Size (cm) - Width 0.4 -Post Debridement Size (cm) - Depth 0.2 -Total Square Cm 0.20 -Wound/Ulcer Outcome Not Healed -Ulcer Cleansing Rinsed/ Irrigated with Saline -Foul Odor after Cleansing No -Bioengineered Tissue No -Bleeding Controlled with Pressure -Offloading No -Treatment Response Procedure Tolerated Well #6 L Post -Time 09:35 -Correct Patient Yes -Correct Side, Site, Position Yes -Correct Procedure Yes -Procedure Performed Yes -Type of Procedure Debridement -Clinical Debridement Subcutaneous -Post Debridement Size (cm) - Length 22.5 -Post Debridement Size (cm) - Width 2.1 -Post Debridement Size (cm) - Depth 0.5 -Total Square Cm 47.25 -Wound/Ulcer Outcome Not Healed -Ulcer Cleansing Rinsed/ Irrigated with Saline -Foul Odor after Cleansing No -Bioengineered Tissue No -Bleeding Controlled with Pressure -Offloading No -Treatment Response Procedure Tolerated Well #5 R Lat LE -Time 09:26 -Correct Patient Yes -Correct Side, Site, Position Yes -Correct Procedure Yes -Procedure Performed Yes -Type of Procedure Debridement -Clinical Debridement Subcutaneous -Post Debridement Size (cm) - Length 2.1 -Post Debridement Size (cm) - Width 1.6 -Post Debridement Size (cm) - Depth 0.2 -Total Square Cm 3.36 -Wound/Ulcer Outcome Not Healed -Ulcer Cleansing Rinsed/ Irrigated with Saline -Foul Odor after Cleansing No -Bioengineered Tissue No -Bleeding Controlled with Pressure -Offloading No -Treatment Response Procedure Tolerated Well #4 R post LE -Time 09:26 -Correct Patient Yes -Correct Side, Site, Position Yes -Correct Procedure Yes -Procedure Performed Yes -Type of Procedure Debridement -Clinical Debridement Subcutaneous -Post Debridement Size (cm) - Length 3.2 -Post Debridement Size (cm) - Width 2.5 -Post Debridement Size (cm) - Depth 0.3 -Total Square Cm 8.00 -Wound/Ulcer Outcome Not Healed -Ulcer Cleansing Rinsed/ Irrigated with Saline -Foul Odor after Cleansing No -Bioengineered Tissue No -Bleeding Controlled with Pressure -Offloading No -Treatment Response Procedure Tolerated Well #3 R Med LE -Time 09:26 -Correct Patient Yes -Correct Side, Site, Position Yes -Correct Procedure Yes -Procedure Performed Yes -Type of Procedure Debridement -Clinical Debridement Subcutaneous -Post Debridement Size (cm) - Length 2.6 -Post Debridement Size (cm) - Width 0.6 -Post Debridement Size (cm) - Depth 0.3 -Total Square Cm 1.56 -Wound/Ulcer Outcome Not Healed -Ulcer Cleansing Rinsed/ Irrigated with Saline -Foul Odor after Cleansing No -Bioengineered Tissue No -Bleeding Controlled with Pressure -Offloading No -Treatment Response Procedure Tolerated Well #2 R [place] Cluster -Time 09:27 -Correct Patient Yes -Correct Side, Site, Position Yes -Correct Procedure Yes -Procedure Performed Yes -Type of Procedure Debridement -Clinical Debridement Subcutaneous -Post Debridement Size (cm) - Length 9.1 -Post Debridement Size (cm) - Width 2.5 -Post Debridement Size (cm) - Depth 0.1 -Total Square Cm 22.75 -Wound/Ulcer Outcome Not Healed -Ulcer Cleansing Rinsed/ Irrigated with Saline -Foul Odor after Cleansing No -Bioengineered Tissue No -Bleeding Controlled with Pressure -Offloading No -Treatment Response Procedure Tolerated Well #1 R 2nd toe amp -Time 09:27 -Correct Patient Yes -Correct Side, Site, Position Yes -Correct Procedure Yes -Procedure Performed Yes -Type of Procedure Debridement -Clinical Debridement Subcutaneous -Post Debridement Size (cm) - Length 2.1 -Post Debridement Size (cm) - Width 0.3 -Post Debridement Size (cm) - Depth 0.3 -Total Square Cm 0.63 -Wound/Ulcer Outcome Not Healed -Ulcer Cleansing Rinsed/ Irrigated with Saline -Foul Odor after Cleansing No -Bioengineered Tissue No -Bleeding Controlled with Pressure -Offloading No -Treatment Response Procedure Tolerated Well [See Physician Procedure note for Specifics] Pain Scale: 0-10 Numeric [Pain] -Is Patient Pain Free? Yes Musculoskeletal: No Tenderness to Palpation of Joints or Extremities, Muscle Wasting, - - Open ray resection right foot Neurological: - - Lack of epicritic sensation light touch bilateral lower extremities Psych/Mental Status: Normal Affect, Appropriate Debridement Note Post-Debridement Measurements/Treatment WC - Nurse 2 - General Ulcer CM Notes Start: 03/01/19 08:30 Freq: Status: Active Protocol: Activity Type Activity Date Activity User E-Sign Co-Sign Detail Recorded Client Recorded Date Recorded By Document 03/01/19 09:16 MW [id number] 03/01/19 09:17 MW Document 03/01/19 09:25 JF [id number] 03/01/19 09:37 JF 03/01/19 03/01/19 09:16 09:25 Wound Center Nurse 2 #12 left plantar -Time 09:28 -Correct Patient Yes -Correct Side, Site, Position Yes -Correct Procedure Yes -Procedure Performed Yes -Type of Procedure Debridement -Clinical Debridement Subcutaneous -Post Debridement Size (cm) - Length 0.3 -Post Debridement Size (cm) - Width 0.3 -Post Debridement Size (cm) - Depth 0.1 -Total Square Cm 0.09 -Wound/Ulcer Outcome Not Healed -Ulcer Cleansing Rinsed/ Irrigated with Saline -Foul Odor after Cleansing No -Bioengineered Tissue No -Bleeding Controlled with Pressure -Offloading No -Treatment Response Procedure Tolerated Well #11 RIGHT MEDIAL FOOT -Time 09:25 -Correct Patient Yes -Correct Side, Site, Position Yes -Correct Procedure Yes -Procedure Performed Yes -Type of Procedure Debridement -Clinical Debridement Subcutaneous -Post Debridement Size (cm) - Length 1.8 -Post Debridement Size (cm) - Width 13 -Post Debridement Size (cm) - Depth 0.4 -Total Square Cm 23.4 -Wound/Ulcer Outcome Not Healed -Ulcer Cleansing Rinsed/ Irrigated with Saline -Foul Odor after Cleansing No -Bioengineered Tissue No -Bleeding Controlled with Pressure -Offloading No -Treatment Response Procedure Tolerated Well #8 r Knee -Time 09:16 -Correct Patient Yes -Correct Side, Site, Position Yes -Correct Procedure Yes -Procedure Performed Yes -Type of Procedure Debridement -Clinical Debridement Subcutaneous -Post Debridement Size (cm) - Length 0.5 -Post Debridement Size (cm) - Width 0.4 -Post Debridement Size (cm) - Depth 0.2 -Total Square Cm 0.20 -Wound/Ulcer Outcome Not Healed -Ulcer Cleansing Rinsed/ Irrigated with Saline -Foul Odor after Cleansing No -Bioengineered Tissue No -Bleeding Controlled with Pressure -Offloading No -Treatment Response Procedure Tolerated Well #6 L Post -Time 09:35 -Correct Patient Yes -Correct Side, Site, Position Yes -Correct Procedure Yes -Procedure Performed Yes -Type of Procedure Debridement -Clinical Debridement Subcutaneous -Post Debridement Size (cm) - Length 22.5 -Post Debridement Size (cm) - Width 2.1 -Post Debridement Size (cm) - Depth 0.5 -Total Square Cm 47.25 -Wound/Ulcer Outcome Not Healed -Ulcer Cleansing Rinsed/ Irrigated with Saline -Foul Odor after Cleansing No -Bioengineered Tissue No -Bleeding Controlled with Pressure -Offloading No -Treatment Response Procedure Tolerated Well #5 R Lat LE -Time 09:26 -Correct Patient Yes -Correct Side, Site, Position Yes -Correct Procedure Yes -Procedure Performed Yes -Type of Procedure Debridement -Clinical Debridement Subcutaneous -Post Debridement Size (cm) - Length 2.1 -Post Debridement Size (cm) - Width 1.6 -Post Debridement Size (cm) - Depth 0.2 -Total Square Cm 3.36 -Wound/Ulcer Outcome Not Healed -Ulcer Cleansing Rinsed/ Irrigated with Saline -Foul Odor after Cleansing No -Bioengineered Tissue No -Bleeding Controlled with Pressure -Offloading No -Treatment Response Procedure Tolerated Well #4 R post LE -Time 09:26 -Correct Patient Yes -Correct Side, Site, Position Yes -Correct Procedure Yes -Procedure Performed Yes -Type of Procedure Debridement -Clinical Debridement Subcutaneous -Post Debridement Size (cm) - Length 3.2 -Post Debridement Size (cm) - Width 2.5 -Post Debridement Size (cm) - Depth 0.3 -Total Square Cm 8.00 -Wound/Ulcer Outcome Not Healed -Ulcer Cleansing Rinsed/ Irrigated with Saline -Foul Odor after Cleansing No -Bioengineered Tissue No -Bleeding Controlled with Pressure -Offloading No -Treatment Response Procedure Tolerated Well #3 R Med LE -Time 09:26 -Correct Patient Yes -Correct Side, Site, Position Yes -Correct Procedure Yes -Procedure Performed Yes -Type of Procedure Debridement -Clinical Debridement Subcutaneous -Post Debridement Size (cm) - Length 2.6 -Post Debridement Size (cm) - Width 0.6 -Post Debridement Size (cm) - Depth 0.3 -Total Square Cm 1.56 -Wound/Ulcer Outcome Not Healed -Ulcer Cleansing Rinsed/ Irrigated with Saline -Foul Odor after Cleansing No -Bioengineered Tissue No -Bleeding Controlled with Pressure -Offloading No -Treatment Response Procedure Tolerated Well #2 R [place] Cluster -Time 09:27 -Correct Patient Yes -Correct Side, Site, Position Yes -Correct Procedure Yes -Procedure Performed Yes -Type of Procedure Debridement -Clinical Debridement Subcutaneous -Post Debridement Size (cm) - Length 9.1 -Post Debridement Size (cm) - Width 2.5 -Post Debridement Size (cm) - Depth 0.1 -Total Square Cm 22.75 -Wound/Ulcer Outcome Not Healed -Ulcer Cleansing Rinsed/ Irrigated with Saline -Foul Odor after Cleansing No -Bioengineered Tissue No -Bleeding Controlled with Pressure -Offloading No -Treatment Response Procedure Tolerated Well #1 R 2nd toe amp -Time 09:27 -Correct Patient Yes -Correct Side, Site, Position Yes -Correct Procedure Yes -Procedure Performed Yes -Type of Procedure Debridement -Clinical Debridement Subcutaneous -Post Debridement Size (cm) - Length 2.1 -Post Debridement Size (cm) - Width 0.3 -Post Debridement Size (cm) - Depth 0.3 -Total Square Cm 0.63 -Wound/Ulcer Outcome Not Healed -Ulcer Cleansing Rinsed/ Irrigated with Saline -Foul Odor after Cleansing No -Bioengineered Tissue No -Bleeding Controlled with Pressure -Offloading No -Treatment Response Procedure Tolerated Well Pain Scale: 0-10 Numeric Is Patient Pain Free? Yes Wound debrided: foot near toe region Laterality: Right Wound Grade/Stage: grade 3 Type of Debridement: Excisional debridement Anesthesia Used: 5% Lidocaine Gel Depth: in the subcutaneous layer Percentage of wound debrided: 100 Instrument Used: #15 blade Tissue Removed: fibrous, devitalized subcutaneous, biofilm, slough Severity: Fat Layer Exposed Amount of bleeding with debridement: Mild Bleeding Controlled with: Pressure Patient tolerated procedure well - Additional Wound Wound debrided: medial foot Laterality: Right Wound Grade/Stage: grade 3 Type of Debridement: Excisional debridement Anesthesia Used: 5% Lidocaine Gel Depth: in the subcutaneous layer Percentage of wound debrided: 100 Instrument Used: #15 blade Tissue Removed: fibrous, devitalized subcutaneous, biofilm, slough Severity: Fat Layer Exposed Amount of bleeding with debridement: Mild Bleeding Controlled with: Pressure Patient tolerated procedure: Patient tolerated procedure well - Additional Wound Wound debrided: anterior leg Laterality: Right Wound Grade/Stage: grade 1 Type of Debridement: Excisional debridement Anesthesia Used: 5% Lidocaine Gel Depth: in the subcutaneous layer Percentage of wound debrided: 100 Instrument Used: #15 blade Tissue Removed: fibrous, devitalized subcutaneous, biofilm, slough Severity: Fat Layer Exposed Amount of bleeding with debridement: Mild Bleeding Controlled with: Pressure Patient tolerated procedure: Patient tolerated procedure well - Additional Wound Wound debrided: medial leg Laterality: Right Wound Grade/Stage: grade 1 Type of Debridement: Excisional debridement Anesthesia Used: 5% Lidocaine Gel Depth: in the subcutaneous layer Percentage of wound debrided: 100 Instrument Used: #15 blade Tissue Removed: fibrous, devitalized subcutaneous, biofilm, slough Severity: Fat Layer Exposed Amount of bleeding with debridement: Mild Bleeding Controlled with: Pressure Patient tolerated procedure: Patient tolerated procedure well - Additional Wound Wound debrided: lateral leg Laterality: Right Wound Grade/Stage: grade 1 Type of Debridement: Excisional debridement Anesthesia Used: 5% Lidocaine Gel Depth: in the subcutaneous layer Percentage of wound debrided: 100 Instrument Used: #15 blade Tissue Removed: fibrous, devitalized subcutaneous, biofilm, slough Severity: Fat Layer Exposed Amount of bleeding with debridement: Mild Bleeding Controlled with: Pressure Patient tolerated procedure: Patient tolerated procedure well - Additional Wound Wound debrided: posterior leg Laterality: Right Wound Grade/Stage: grade 2 Type of Debridement: Excisional debridement Anesthesia Used: 5% Lidocaine Gel Depth: in the subcutaneous layer Percentage of wound debrided: 100 Instrument Used: #15 blade Tissue Removed: fibrous, devitalized subcutaneous, biofilm, slough Severity: Fat Layer Exposed Amount of bleeding with debridement: Mild Bleeding Controlled with: Pressure Patient tolerated procedure: Patient tolerated procedure well - Additional Wound Wound debrided: posterior leg Laterality: Left Wound Grade/Stage: grade 2 Type of Debridement: Excisional debridement Anesthesia Used: 5% Lidocaine Gel Depth: in the subcutaneous layer Percentage of wound debrided: 100 Instrument Used: #15 blade Tissue Removed: fibrous, devitalized subcutaneous, biofilm, slough Severity: Fat Layer Exposed Amount of bleeding with debridement: Mild Bleeding Controlled with: Pressure Patient tolerated procedure: Patient tolerated procedure well - Additional Wound Wound debrided: plantar foot Laterality: Left Wound Grade/Stage: grade 1 Type of Debridement: Excisional debridement Anesthesia Used: 5% Lidocaine Gel Depth: in the subcutaneous layer Percentage of wound debrided: 100 Instrument Used: #15 blade Tissue Removed: fibrous, devitalized subcutaneous, biofilm, slough Severity: Fat Layer Exposed Amount of bleeding with debridement: Mild Bleeding Controlled with: Pressure Patient tolerated procedure: Patient tolerated procedure well Assessment/Plan Active Problems (Last Updated 09/28/18 @ 12:41 by Geraldine Steele) Ulcer of right foot with fat layer exposed (Chronic) 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) 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) Delayed wound healing (Chronic) Vasculitis (Chronic) Ulcer of left lower extremity with fat layer exposed (Chronic) Type 2 diabetes mellitus with diabetic polyneuropathy (Chronic) Assessment: Open second and third ray resection secondary to 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 Diabetic neuropathy. Malnutrition suspected. 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 Delayed healing. Gait impairment and fall risk. Other comorbidities, right knee ulcer Plan: I reviewed and discussed his case today. He was reassured no infections are noted. Debridement done as documented above in the nursing clinical panel. Procedure was well-tolerated. Continue [employer] for hydrogel and Adaptic; to change daily due to the reported dryness. His continued tendon exposure to the posterior bilateral legs is noted in the gave him a prescription for an offloading donut pillow. Elevate lower extremities when seated and in bed. Continue increased protein intake. I recommend he avoids laying directly on his wounds to reduce pressure, and I was concerned about his perfusion to his limbs. He had an arterial Doppler scheduled with Dr. Morgan's staff on August 02, 2018 and overall perfusion was confirmed; additional intervention or workup was not recommended. It is also noted that he did have venous Doppler performed with reflux evaluation. He did not have evidence of deep venous thrombosis or venous insufficiency at that time; the vessels were compressible. To continue with nutritional supplementation optimize healing; I recommend Juan. I recommend he sustained from smoking and alcohol activities to optimize healing as well. His workup for vasculitis and underlying autoimmune disorder is also pending. A punch biopsy was sent during his last surgical intervention on June 10 and this demonstrated inflammatory changes without malignancy. He had initial screening labs and so far he has a negative RA titer, HL of the 27, KEVIN, anti-CCP, and rheumatoid factor. Several his antibody screenings were not reportable. Hyperbaric oxygen therapy was recommended and it is noted his ejection fraction was most recently 50%. He refuses at this time. Dr. Gilbert continues to manage his right knee ulcer including debridements and traditional wound care plan. He refuses surgical intervention at this time to bilateral lower extremities. I answered all of his questions. Additional amputation of the right foot is not planned due to his fairly nonambulatory status. Smoking cessation was discussed in detail again today and compliance is imperative to optimize healing of surgical success. He reports he is cutting back. I recommend further follow-up at the wound care center 2 week with me, or call sooner if he has any questions. Compliance at this advanced wound care center was reviewed. He understands additional palliative care programs are an option if he does not wish to proceed with advanced wound care opportunities that has been recommended. 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
[2019-03-15 08:09] VITALS: BP 121/87; PULSE 97; RESP 16; TEMP 35.5
--- NOTE | 2019-03-15 09:05 | PN.PCM_ITS ---
(1) Skin ulcer of right knee with fat layer exposed Status: Chronic Current Visit: Yes Code(s): L97.812 - Non-pressure chronic ulcer of other part of right lower leg with fat layer exposed (2) Tobacco dependence due to cigarettes Status: Chronic Current Visit: Yes Code(s): F17.210 - Nicotine dependence, cigarettes, uncomplicated (3) PVD (peripheral vascular disease) Status: Suspected Current Visit: No Code(s): I73.9 - Peripheral vascular disease, unspecified (4) DM2 (diabetes mellitus, type 2) Status: Chronic Current Visit: No Code(s): E11.9 - Type 2 diabetes mellitus without complications Type of Wound Chief Complaint: right and left Leg ulcers and right and left foot ulcers History of Wound: Mr. Arguello is a 63-year-old male with multiple comorbidities follows up for delayed healing ulcers to the right and left foot as well as bilateral legs. It is noted he previously had widespread debridements and fasciotomies performed to bilateral lower extremities secondary to life- threatening and limb threatening infection; this was previously performed at [facility]. He continues to follow with Dr. Gilbert for his right knee ulcer. He denies chills, fever or otherwise feeling of unwell. He presents today with his . He still refuses advanced wound care product application. He refuses hyperbaric oxygen therapy treatment. He elects to proceed with a palliative care plan because he is refusing the other treatment recommendations. He is with his today. His dressings are being changed every other day and his reports they are dry Progress of Wound: Improving. No new concerns at this time. - Physical Exam Vital Signs Temp Pulse Resp BP 95.9 F L 97 16 121/87 H 03/15/19 08:09 03/15/19 08:09 03/15/19 08:09 03/15/19 08:09 General: Alert, Oriented x3, Cooperative, No apparent distress HEENT: Atraumatic, Normocephalic Oral: Moist Mucosa Neck: Supple Lungs: Normal air movement Abdomen: Non Tender Skin: Ulcer/ Wound Wound Measurements and Assessment WC - Nurse 1 - General Ulcer Measurement Start: 03/01/19 08:30 Freq: Status: Active Protocol: Activity Type Activity Date Activity User E-Sign Co-Sign Detail Recorded Client Recorded Date Recorded By Document 03/15/19 08:09 JAMAL [id number] 03/15/19 08:26 03/15/19 08:09 Wound Center Nurse 1 [Ulcer Assessment] #12 left plantar -Combined with other wound No -Current Size (cm) - Length 0.1 -Current Size (cm) - Width 0.1 -Current Size (cm) - Depth 0.1 -Total Square Cm 0.01 -Photo Taken No -Epithelialization Large 67-100% -Tunneling No -Undermining/Tunneling No -Circular Undermining No -Exudate Amt None Present -Wound Margin Flat & Intact -Granulation Amt None Present (0 %) -Slough/Fibrin No -Structure Exposed N/A -Texture (Lisa-wound Skin Appearance) Assessed -Moisture (Lisa-wound Skin Appearance Assessed ) Dry/Scaly -Color (Lisa-wound Skin Appearance) Assessed Rubor -Temperature (Lisa-wound Skin No Abnormality Appearance) (Pt Warm) -Ulcer Cleansing Wound Cleanser -Foul Odor after Cleansing No -Anesthetic Used 4% Lidocaine Solution 5% Lidocaine Gel #11 RIGHT MEDIAL FOOT -Combined with other wound No -Current Size (cm) - Length 12.0 -Current Size (cm) - Width 1.8 -Current Size (cm) - Depth 0.2 -Total Square Cm 21.60 -Photo Taken No -Epithelialization Small 1-33% -Tunneling No -Undermining/Tunneling No -Circular Undermining No -Exudate Amt Small -Exudate Type Serosanguineous -Wound Margin Flat & Intact -Granulation Amt Small (1-33%) -Granulation Quality [place] -Slough/Fibrin Yes -Necrosis Amt Large (67-100%) -Necrotic Tissue Type Adherent Slough -Structure Exposed N/A -Texture (Lisa-wound Skin Appearance) Assessed -Moisture (Lisa-wound Skin Appearance Assessed ) Dry/Scaly -Color (Lisa-wound Skin Appearance) Assessed Rubor -Temperature (Lisa-wound Skin No Abnormality Appearance) (Pt Warm) -Ulcer Cleansing Wound Cleanser -Foul Odor after Cleansing No -Anesthetic Used 5% Lidocaine Gel #8 r Knee -Combined with other wound No -Current Size (cm) - Length 0.3 -Current Size (cm) - Width 0.4 -Current Size (cm) - Depth 0.2 -Total Square Cm 0.12 -Photo Taken No -Epithelialization None Present -Tunneling No -Undermining/Tunneling No -Circular Undermining No -Exudate Amt None Present -Wound Margin Fibrotic Scar, Thickened Scar -Granulation Amt Small (1-33%) -Granulation Quality [place] -Slough/Fibrin Yes -Necrosis Amt Large (67-100%) -Necrotic Tissue Type Adherent Slough -Structure Exposed N/A -Texture (Lisa-wound Skin Appearance) Assessed -Moisture (Lisa-wound Skin Appearance Assessed ) Dry/Scaly -Color (Lisa-wound Skin Appearance) Assessed -Temperature (Lisa-wound Skin No Abnormality Appearance) (Pt Warm) -Tenderness on Palpation (Lisa-wound No Skin Appearance) -Ulcer Cleansing Rinsed/ Irrigated with Saline -Foul Odor after Cleansing No -Anesthetic Used 4% Lidocaine Solution #6 L Post -Combined with other wound No -Current Size (cm) - Length 20.6 -Current Size (cm) - Width 1.6 -Current Size (cm) - Depth 0.4 -Total Square Cm 32.96 -Photo Taken No -Epithelialization Small 1-33% -Tunneling No -Undermining/Tunneling No -Circular Undermining No -Exudate Amt Small -Exudate Type Serosanguineous -Wound Margin Flat & Intact -Granulation Amt Small (1-33%) -Granulation Quality [place] -Slough/Fibrin Yes -Necrosis Amt Large (67-100%) -Necrotic Tissue Type Adherent Slough -Structure Exposed N/A -Texture (Lisa-wound Skin Appearance) Assessed -Moisture (Lisa-wound Skin Appearance Assessed ) Dry/Scaly -Color (Lisa-wound Skin Appearance) Assessed Rubor -Temperature (Lisa-wound Skin No Abnormality Appearance) (Pt Warm) -Ulcer Cleansing Wound Cleanser -Foul Odor after Cleansing No -Anesthetic Used 5% Lidocaine Gel #5 R Lat LE -Combined with other wound No -Current Size (cm) - Length 1.5 -Current Size (cm) - Width 1.2 -Current Size (cm) - Depth 0.2 -Total Square Cm 1.80 -Photo Taken No -Epithelialization Small 1-33% -Tunneling No -Undermining/Tunneling No -Circular Undermining No -Exudate Amt None Present -Wound Margin Fibrotic Scar, Thickened Scar -Granulation Amt Small (1-33%) -Granulation Quality [place] -Slough/Fibrin Yes -Necrosis Amt Large (67-100%) -Necrotic Tissue Type Adherent Slough -Structure Exposed N/A -Texture (Lisa-wound Skin Appearance) Assessed -Moisture (Lisa-wound Skin Appearance Assessed ) Dry/Scaly -Color (Lisa-wound Skin Appearance) Assessed -Temperature (Lisa-wound Skin No Abnormality Appearance) (Pt Warm) -Tenderness on Palpation (Lisa-wound No Skin Appearance) -Ulcer Cleansing Wound Cleanser -Foul Odor after Cleansing No -Anesthetic Used 5% Lidocaine Gel #4 R post LE -Combined with other wound No -Current Size (cm) - Length 2.7 -Current Size (cm) - Width 2.1 -Current Size (cm) - Depth 0.2 -Total Square Cm 5.67 -Photo Taken No -Epithelialization None Present -Tunneling No -Undermining/Tunneling No -Circular Undermining No -Exudate Amt None Present -Wound Margin Fibrotic Scar, Thickened Scar -Granulation Amt Small (1-33%) -Granulation Quality [place] -Slough/Fibrin Yes -Necrosis Amt Large (67-100%) -Necrotic Tissue Type Adherent Slough -Structure Exposed Tendon -Texture (Lisa-wound Skin Appearance) Assessed -Moisture (Lisa-wound Skin Appearance Assessed ) Dry/Scaly -Color (Lisa-wound Skin Appearance) Assessed -Temperature (Lisa-wound Skin No Abnormality Appearance) (Pt Warm) -Tenderness on Palpation (Lisa-wound No Skin Appearance) -Ulcer Cleansing Wound Cleanser -Foul Odor after Cleansing No -Anesthetic Used 5% Lidocaine Gel #3 R Med LE -Combined with other wound No -Current Size (cm) - Length 1.1 -Current Size (cm) - Width 0.5 -Current Size (cm) - Depth 0.4 -Total Square Cm 0.55 -Photo Taken No -Epithelialization Small 1-33% -Tunneling No -Undermining/Tunneling No -Circular Undermining Yes -Exudate Amt None Present -Wound Margin Fibrotic Scar, Thickened Scar -Granulation Amt Small (1-33%) -Granulation Quality [place] -Slough/Fibrin Yes -Necrosis Amt Large (67-100%) -Necrotic Tissue Type Adherent Slough -Structure Exposed N/A -Texture (Lisa-wound Skin Appearance) Assessed -Moisture (Lisa-wound Skin Appearance Assessed ) Dry/Scaly -Color (Lisa-wound Skin Appearance) Assessed -Temperature (Lisa-wound Skin No Abnormality Appearance) (Pt Warm) -Tenderness on Palpation (Lisa-wound No Skin Appearance) -Ulcer Cleansing Wound Cleanser -Foul Odor after Cleansing No -Anesthetic Used 5% Lidocaine Gel #2 R [place] Cluster -Combined with other wound No -Current Size (cm) - Length 5.7 -Current Size (cm) - Width 2.1 -Current Size (cm) - Depth 0.2 -Total Square Cm 11.97 -Photo Taken No -Epithelialization None Present -Tunneling No -Undermining/Tunneling No -Circular Undermining No -Exudate Amt None Present -Wound Margin Fibrotic Scar, Thickened Scar -Granulation Amt Medium (34-66%) -Granulation Quality [place] -Slough/Fibrin Yes -Necrosis Amt Medium (34-66%) -Necrotic Tissue Type Adherent Slough -Structure Exposed N/A -Texture (Lisa-wound Skin Appearance) Assessed -Moisture (Lisa-wound Skin Appearance Assessed ) Dry/Scaly -Color (Lisa-wound Skin Appearance) Assessed -Temperature (Lisa-wound Skin No Abnormality Appearance) (Pt Warm) -Tenderness on Palpation (Lisa-wound No Skin Appearance) -Ulcer Cleansing Wound Cleanser -Foul Odor after Cleansing No -Anesthetic Used 5% Lidocaine Gel #1 R 2nd toe amp -Combined with other wound No -Current Size (cm) - Length 1.5 -Current Size (cm) - Width 0.5 -Current Size (cm) - Depth 0.1 -Total Square Cm 0.75 -Photo Taken No -Epithelialization Small 1-33% -Tunneling No -Undermining/Tunneling No -Circular Undermining No -Exudate Amt None Present -Wound Margin Fibrotic Scar, Thickened Scar -Granulation Amt Small (1-33%) -Granulation Quality [place] -Slough/Fibrin Yes -Necrosis Amt Large (67-100%) -Necrotic Tissue Type Adherent Slough -Structure Exposed N/A -Texture (Lisa-wound Skin Appearance) Assessed Localized Edema -Moisture (Lisa-wound Skin Appearance Assessed ) Dry/Scaly -Color (Lisa-wound Skin Appearance) Assessed -Temperature (Lisa-wound Skin No Abnormality Appearance) (Pt Warm) -Tenderness on Palpation (Lisa-wound No Skin Appearance) -Ulcer Cleansing Wound Cleanser -Foul Odor after Cleansing No -Anesthetic Used 5% Lidocaine Gel [Edema Assessment] -Lower Limb Edema Present No -Right Calf (cm) 34.0 -Right Ankle (cm) 20.2 -Left Calf (cm) 34.2 -Left Ankle (cm) 20.5 WC - Nurse 2 - General Ulcer CM Notes Start: 03/01/19 08:30 Freq: Status: Active Protocol: Activity Type Activity Date Activity User E-Sign Co-Sign Detail Recorded Client Recorded Date Recorded By Document 03/15/19 08:46 MW [id number] 03/15/19 08:48 MW 03/15/19 08:46 Wound Center Nurse 2 [Procedure/Treatment] #8 r Knee -Time 08:46 -Correct Patient Yes -Correct Side, Site, Position Yes -Correct Procedure Yes -Procedure Performed Yes -Type of Procedure Debridement -Clinical Debridement Subcutaneous -Post Debridement Size (cm) - Length 0.5 -Post Debridement Size (cm) - Width 0.3 -Post Debridement Size (cm) - Depth 0.2 -Total Square Cm 0.15 -Wound/Ulcer Outcome Not Healed -Ulcer Cleansing Rinsed/ Irrigated with Saline -Foul Odor after Cleansing No -Bioengineered Tissue No -Bleeding Controlled with Pressure -Offloading No -Treatment Response Procedure Tolerated Well [See Physician Procedure note for Specifics] Pain Scale: 0-10 Numeric [Pain] -Is Patient Pain Free? Yes Neurological: Cranial nerves II-XII grossly intact Psych/Mental Status: Normal Affect Debridement Note Post-Debridement Measurements/Treatment JOAO - Nurse 2 - General Ulcer CM Notes Start: 03/01/19 08:30 Freq: Status: Active Protocol: Activity Type Activity Date Activity User E-Sign Co-Sign Detail Recorded Client Recorded Date Recorded By Document 03/01/19 09:16 MW [id number] 03/01/19 09:17 MW Document 03/01/19 09:25 JF [id number] 03/01/19 09:37 JF Document 03/15/19 08:46 MW [id number] 03/15/19 08:48 MW 03/01/19 03/01/19 03/15/19 09:16 09:25 08:46 Wound Center Nurse 2 #12 left plantar -Time 09:28 -Correct Patient Yes -Correct Side, Site, Position Yes -Correct Procedure Yes -Procedure Performed Yes -Type of Procedure Debridement -Clinical Debridement Subcutaneous -Post Debridement Size (cm) - Length 0.3 -Post Debridement Size (cm) - Width 0.3 -Post Debridement Size (cm) - Depth 0.1 -Total Square Cm 0.09 -Wound/Ulcer Outcome Not Healed -Ulcer Cleansing Rinsed/ Irrigated with Saline -Foul Odor after Cleansing No -Bioengineered Tissue No -Bleeding Controlled with Pressure -Offloading No -Treatment Response Procedure Tolerated Well #11 RIGHT MEDIAL FOOT -Time 09:25 -Correct Patient Yes -Correct Side, Site, Position Yes -Correct Procedure Yes -Procedure Performed Yes -Type of Procedure Debridement -Clinical Debridement Subcutaneous -Post Debridement Size (cm) - Length 1.8 -Post Debridement Size (cm) - Width 13 -Post Debridement Size (cm) - Depth 0.4 -Total Square Cm 23.4 -Wound/Ulcer Outcome Not Healed -Ulcer Cleansing Rinsed/ Irrigated with Saline -Foul Odor after Cleansing No -Bioengineered Tissue No -Bleeding Controlled with Pressure -Offloading No -Treatment Response Procedure Tolerated Well #8 r Knee -Time 09:16 08:46 -Correct Patient Yes Yes -Correct Side, Site, Position Yes Yes -Correct Procedure Yes Yes -Procedure Performed Yes Yes -Type of Procedure Debridement Debridement -Clinical Debridement Subcutaneous Subcutaneous -Post Debridement Size (cm) - Length 0.5 0.5 -Post Debridement Size (cm) - Width 0.4 0.3 -Post Debridement Size (cm) - Depth 0.2 0.2 -Total Square Cm 0.20 0.15 -Wound/Ulcer Outcome Not Healed Not Healed -Ulcer Cleansing Rinsed/ Rinsed/ Irrigated with Irrigated with Saline Saline -Foul Odor after Cleansing No No -Bioengineered Tissue No No -Bleeding Controlled with Pressure Pressure -Offloading No No -Treatment Response Procedure Procedure Tolerated Well Tolerated Well #6 L Post -Time 09:35 -Correct Patient Yes -Correct Side, Site, Position Yes -Correct Procedure Yes -Procedure Performed Yes -Type of Procedure Debridement -Clinical Debridement Subcutaneous -Post Debridement Size (cm) - Length 22.5 -Post Debridement Size (cm) - Width 2.1 -Post Debridement Size (cm) - Depth 0.5 -Total Square Cm 47.25 -Wound/Ulcer Outcome Not Healed -Ulcer Cleansing Rinsed/ Irrigated with Saline -Foul Odor after Cleansing No -Bioengineered Tissue No -Bleeding Controlled with Pressure -Offloading No -Treatment Response Procedure Tolerated Well #5 R Lat LE -Time 09:26 -Correct Patient Yes -Correct Side, Site, Position Yes -Correct Procedure Yes -Procedure Performed Yes -Type of Procedure Debridement -Clinical Debridement Subcutaneous -Post Debridement Size (cm) - Length 2.1 -Post Debridement Size (cm) - Width 1.6 -Post Debridement Size (cm) - Depth 0.2 -Total Square Cm 3.36 -Wound/Ulcer Outcome Not Healed -Ulcer Cleansing Rinsed/ Irrigated with Saline -Foul Odor after Cleansing No -Bioengineered Tissue No -Bleeding Controlled with Pressure -Offloading No -Treatment Response Procedure Tolerated Well #4 R post LE -Time 09:26 -Correct Patient Yes -Correct Side, Site, Position Yes -Correct Procedure Yes -Procedure Performed Yes -Type of Procedure Debridement -Clinical Debridement Subcutaneous -Post Debridement Size (cm) - Length 3.2 -Post Debridement Size (cm) - Width 2.5 -Post Debridement Size (cm) - Depth 0.3 -Total Square Cm 8.00 -Wound/Ulcer Outcome Not Healed -Ulcer Cleansing Rinsed/ Irrigated with Saline -Foul Odor after Cleansing No -Bioengineered Tissue No -Bleeding Controlled with Pressure -Offloading No -Treatment Response Procedure Tolerated Well #3 R Med LE -Time 09:26 -Correct Patient Yes -Correct Side, Site, Position Yes -Correct Procedure Yes -Procedure Performed Yes -Type of Procedure Debridement -Clinical Debridement Subcutaneous -Post Debridement Size (cm) - Length 2.6 -Post Debridement Size (cm) - Width 0.6 -Post Debridement Size (cm) - Depth 0.3 -Total Square Cm 1.56 -Wound/Ulcer Outcome Not Healed -Ulcer Cleansing Rinsed/ Irrigated with Saline -Foul Odor after Cleansing No -Bioengineered Tissue No -Bleeding Controlled with Pressure -Offloading No -Treatment Response Procedure Tolerated Well #2 R [place] Cluster -Time 09:27 -Correct Patient Yes -Correct Side, Site, Position Yes -Correct Procedure Yes -Procedure Performed Yes -Type of Procedure Debridement -Clinical Debridement Subcutaneous -Post Debridement Size (cm) - Length 9.1 -Post Debridement Size (cm) - Width 2.5 -Post Debridement Size (cm) - Depth 0.1 -Total Square Cm 22.75 -Wound/Ulcer Outcome Not Healed -Ulcer Cleansing Rinsed/ Irrigated with Saline -Foul Odor after Cleansing No -Bioengineered Tissue No -Bleeding Controlled with Pressure -Offloading No -Treatment Response Procedure Tolerated Well #1 R 2nd toe amp -Time 09:27 -Correct Patient Yes -Correct Side, Site, Position Yes -Correct Procedure Yes -Procedure Performed Yes -Type of Procedure Debridement -Clinical Debridement Subcutaneous -Post Debridement Size (cm) - Length 2.1 -Post Debridement Size (cm) - Width 0.3 -Post Debridement Size (cm) - Depth 0.3 -Total Square Cm 0.63 -Wound/Ulcer Outcome Not Healed -Ulcer Cleansing Rinsed/ Irrigated with Saline -Foul Odor after Cleansing No -Bioengineered Tissue No -Bleeding Controlled with Pressure -Offloading No -Treatment Response Procedure Tolerated Well Pain Scale: 0-10 Numeric Is Patient Pain Free? Yes Yes Wound debrided: Right Knee Wound Grade/Stage: Stage III Type of Debridement: Excisional debridement Anesthesia Used: 4% Lidocaine Solution Depth: Down to and including healthy tissue, in the subcutaneous layer Percentage of wound debrided: 100 Instrument Used: 3mm curette Tissue Removed: Slough and devitalized tissue Severity: Fat Layer Exposed Amount of bleeding with debridement: Mild Bleeding Controlled with: Pressure Patient tolerated procedure well Assessment/Plan Active Problems (Last Updated 09/28/18 @ 12:41 by Geraldine Steele) Ulcer of right foot with fat layer exposed (Chronic) 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) 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) Skin ulcer of right knee with fat layer exposed (Chronic) Delayed wound healing (Chronic) Vasculitis (Chronic) Tobacco dependence due to cigarettes (Chronic) Ulcer of left lower extremity with fat layer exposed (Chronic) Type 2 diabetes mellitus with diabetic polyneuropathy (Chronic) Assessment: Open second and third ray resection secondary to 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 Diabetic neuropathy. Malnutrition suspected. 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 Delayed healing. Gait impairment and fall risk. Other comorbidities, right knee ulcer Plan: Treatment done as documented above. Procedure was well-tolerated. Progressively improving however slowly. Continue chromogranin change every other day. Elevate lower extremities when seated in bed. Increase protein intake also recommended. Smoking cessation very strongly recommended. Continue other wound care management per Dr. Gruber. Follow-up in 2 weeks. Patient is currently complex care. This note was generated with [employer] dictation software. It may contain incorrect words, spelling, and punctuation that were not noted in checking the note before signing.
--- NOTE | 2019-03-15 10:49 | PN.PCM_ITS ---
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 Status: Chronic Current Visit: Yes Code(s): L97.913 - Non-pressure chronic ulcer of unspecified part of right lower leg with necrosis of muscle (4) Chronic ulcer of left foot with fat layer exposed Status: Chronic Current Visit: Yes Code(s): L97.522 - Non-pressure chronic ulcer of other part of left foot with fat layer exposed (5) Delayed wound healing Status: Chronic Current Visit: Yes Code(s): T14.8XXD - Other injury of unspecified body region, subsequent encounter (6) Type 2 diabetes mellitus with diabetic polyneuropathy Status: Chronic Current Visit: Yes Code(s): E11.42 - Type 2 diabetes mellitus with diabetic polyneuropathy (7) Vasculitis Status: Chronic Current Visit: Yes Code(s): I77.6 - Arteritis, unspecified Type of Wound Chief Complaint: right and left Leg ulcers and right and left foot ulcers History of Wound: Mr. Arguello is a 64-year-old male with multiple comorbidities follows up for delayed healing ulcers to the right and left foot as well as bilateral legs. It is noted he previously had widespread debridements and fasciotomies performed to bilateral lower extremities secondary to life- threatening and limb threatening infection; this was previously performed at [facility]. He continues to follow with Dr. Gilbert for his right knee ulcer. He denies chills, fever or otherwise feeling of unwell. He presents today with his . He still refuses advanced wound care product application. He refuses hyperbaric oxygen therapy treatment. He elects to proceed with a palliative care plan because he is refusing the other treatment recommendations. He is with his today. His dressings are being changed every other day and his reports they are still dry and she elected not to change them daily. The patient admits he continues to lay with the ulcer sites pressing on furniture most of the day. Progress of Wound: stable and no significant improvement to bilateral posterior leg ulcers. Other sites improving - Physical Exam Vital Signs Temp Pulse Resp BP 95.9 F L 97 16 121/87 H 03/15/19 08:09 03/15/19 08:09 03/15/19 08:09 03/15/19 08:09 General: Alert, Oriented x3, Cooperative HEENT: Atraumatic Extremities: No cyanosis, Capillary Refill Less than 3 Seconds, No Calf Tenderness - Negative Errol and [place] bilateral, Diminished Peripheral Pulses, Edema Skin: Ulcer/ Wound - No purulence, erythema hamstring, odor, or infection. There is granular and fibrous tissue to the ulcer sites. There is exposed healthy tendon to the bilateral posterior leg ulcer sites. The skin is hairless and atrophic bilateral. There is no necrosis or bone exposed Wound Measurements and Assessment WC - Nurse 1 - General Ulcer Measurement Start: 03/01/19 08:30 Freq: Status: Active Protocol: Activity Type Activity Date Activity User E-Sign Co-Sign Detail Recorded Client Recorded Date Recorded By Document 03/15/19 08:09 [id number] 03/15/19 08:26 03/15/19 08:09 Wound Center Nurse 1 [Ulcer Assessment] #12 left plantar -Combined with other wound No -Current Size (cm) - Length 0.1 -Current Size (cm) - Width 0.1 -Current Size (cm) - Depth 0.1 -Total Square Cm 0.01 -Photo Taken No -Epithelialization Large 67-100% -Tunneling No -Undermining/Tunneling No -Circular Undermining No -Exudate Amt None Present -Wound Margin Flat & Intact -Granulation Amt None Present (0 %) -Slough/Fibrin No -Structure Exposed N/A -Texture (Lisa-wound Skin Appearance) Assessed -Moisture (Lisa-wound Skin Appearance Assessed ) Dry/Scaly -Color (Lisa-wound Skin Appearance) Assessed Rubor -Temperature (Lisa-wound Skin No Abnormality Appearance) (Pt Warm) -Ulcer Cleansing Wound Cleanser -Foul Odor after Cleansing No -Anesthetic Used 4% Lidocaine Solution 5% Lidocaine Gel #11 RIGHT MEDIAL FOOT -Combined with other wound No -Current Size (cm) - Length 12.0 -Current Size (cm) - Width 1.8 -Current Size (cm) - Depth 0.2 -Total Square Cm 21.60 -Photo Taken No -Epithelialization Small 1-33% -Tunneling No -Undermining/Tunneling No -Circular Undermining No -Exudate Amt Small -Exudate Type Serosanguineous -Wound Margin Flat & Intact -Granulation Amt Small (1-33%) -Granulation Quality [place] -Slough/Fibrin Yes -Necrosis Amt Large (67-100%) -Necrotic Tissue Type Adherent Slough -Structure Exposed N/A -Texture (Lisa-wound Skin Appearance) Assessed -Moisture (Lisa-wound Skin Appearance Assessed ) Dry/Scaly -Color (Lisa-wound Skin Appearance) Assessed Rubor -Temperature (Lisa-wound Skin No Abnormality Appearance) (Pt Warm) -Ulcer Cleansing Wound Cleanser -Foul Odor after Cleansing No -Anesthetic Used 5% Lidocaine Gel #8 r Knee -Combined with other wound No -Current Size (cm) - Length 0.3 -Current Size (cm) - Width 0.4 -Current Size (cm) - Depth 0.2 -Total Square Cm 0.12 -Photo Taken No -Epithelialization None Present -Tunneling No -Undermining/Tunneling No -Circular Undermining No -Exudate Amt None Present -Wound Margin Fibrotic Scar, Thickened Scar -Granulation Amt Small (1-33%) -Granulation Quality [place] -Slough/Fibrin Yes -Necrosis Amt Large (67-100%) -Necrotic Tissue Type Adherent Slough -Structure Exposed N/A -Texture (Lisa-wound Skin Appearance) Assessed -Moisture (Lisa-wound Skin Appearance Assessed ) Dry/Scaly -Color (Lisa-wound Skin Appearance) Assessed -Temperature (Lisa-wound Skin No Abnormality Appearance) (Pt Warm) -Tenderness on Palpation (Lisa-wound No Skin Appearance) -Ulcer Cleansing Rinsed/ Irrigated with Saline -Foul Odor after Cleansing No -Anesthetic Used 4% Lidocaine Solution #6 L Post -Combined with other wound No -Current Size (cm) - Length 20.6 -Current Size (cm) - Width 1.6 -Current Size (cm) - Depth 0.4 -Total Square Cm 32.96 -Photo Taken No -Epithelialization Small 1-33% -Tunneling No -Undermining/Tunneling No -Circular Undermining No -Exudate Amt Small -Exudate Type Serosanguineous -Wound Margin Flat & Intact -Granulation Amt Small (1-33%) -Granulation Quality [place] -Slough/Fibrin Yes -Necrosis Amt Large (67-100%) -Necrotic Tissue Type Adherent Slough -Structure Exposed N/A -Texture (Lisa-wound Skin Appearance) Assessed -Moisture (Lisa-wound Skin Appearance Assessed ) Dry/Scaly -Color (Lisa-wound Skin Appearance) Assessed Rubor -Temperature (Lisa-wound Skin No Abnormality Appearance) (Pt Warm) -Ulcer Cleansing Wound Cleanser -Foul Odor after Cleansing No -Anesthetic Used 5% Lidocaine Gel #5 R Lat LE -Combined with other wound No -Current Size (cm) - Length 1.5 -Current Size (cm) - Width 1.2 -Current Size (cm) - Depth 0.2 -Total Square Cm 1.80 -Photo Taken No -Epithelialization Small 1-33% -Tunneling No -Undermining/Tunneling No -Circular Undermining No -Exudate Amt None Present -Wound Margin Fibrotic Scar, Thickened Scar -Granulation Amt Small (1-33%) -Granulation Quality [place] -Slough/Fibrin Yes -Necrosis Amt Large (67-100%) -Necrotic Tissue Type Adherent Slough -Structure Exposed N/A -Texture (Lisa-wound Skin Appearance) Assessed -Moisture (Lisa-wound Skin Appearance Assessed ) Dry/Scaly -Color (Lisa-wound Skin Appearance) Assessed -Temperature (Lisa-wound Skin No Abnormality Appearance) (Pt Warm) -Tenderness on Palpation (Lisa-wound No Skin Appearance) -Ulcer Cleansing Wound Cleanser -Foul Odor after Cleansing No -Anesthetic Used 5% Lidocaine Gel #4 R post LE -Combined with other wound No -Current Size (cm) - Length 2.7 -Current Size (cm) - Width 2.1 -Current Size (cm) - Depth 0.2 -Total Square Cm 5.67 -Photo Taken No -Epithelialization None Present -Tunneling No -Undermining/Tunneling No -Circular Undermining No -Exudate Amt None Present -Wound Margin Fibrotic Scar, Thickened Scar -Granulation Amt Small (1-33%) -Granulation Quality [place] -Slough/Fibrin Yes -Necrosis Amt Large (67-100%) -Necrotic Tissue Type Adherent Slough -Structure Exposed Tendon -Texture (Lisa-wound Skin Appearance) Assessed -Moisture (Lisa-wound Skin Appearance Assessed ) Dry/Scaly -Color (Lisa-wound Skin Appearance) Assessed -Temperature (Lisa-wound Skin No Abnormality Appearance) (Pt Warm) -Tenderness on Palpation (Lisa-wound No Skin Appearance) -Ulcer Cleansing Wound Cleanser -Foul Odor after Cleansing No -Anesthetic Used 5% Lidocaine Gel #3 R Med LE -Combined with other wound No -Current Size (cm) - Length 1.1 -Current Size (cm) - Width 0.5 -Current Size (cm) - Depth 0.4 -Total Square Cm 0.55 -Photo Taken No -Epithelialization Small 1-33% -Tunneling No -Undermining/Tunneling No -Circular Undermining Yes -Exudate Amt None Present -Wound Margin Fibrotic Scar, Thickened Scar -Granulation Amt Small (1-33%) -Granulation Quality [place] -Slough/Fibrin Yes -Necrosis Amt Large (67-100%) -Necrotic Tissue Type Adherent Slough -Structure Exposed N/A -Texture (Lisa-wound Skin Appearance) Assessed -Moisture (Lisa-wound Skin Appearance Assessed ) Dry/Scaly -Color (Lisa-wound Skin Appearance) Assessed -Temperature (Lisa-wound Skin No Abnormality Appearance) (Pt Warm) -Tenderness on Palpation (Lisa-wound No Skin Appearance) -Ulcer Cleansing Wound Cleanser -Foul Odor after Cleansing No -Anesthetic Used 5% Lidocaine Gel #2 R [place] Cluster -Combined with other wound No -Current Size (cm) - Length 5.7 -Current Size (cm) - Width 2.1 -Current Size (cm) - Depth 0.2 -Total Square Cm 11.97 -Photo Taken No -Epithelialization None Present -Tunneling No -Undermining/Tunneling No -Circular Undermining No -Exudate Amt None Present -Wound Margin Fibrotic Scar, Thickened Scar -Granulation Amt Medium (34-66%) -Granulation Quality [place] -Slough/Fibrin Yes -Necrosis Amt Medium (34-66%) -Necrotic Tissue Type Adherent Slough -Structure Exposed N/A -Texture (Lisa-wound Skin Appearance) Assessed -Moisture (Lisa-wound Skin Appearance Assessed ) Dry/Scaly -Color (Lisa-wound Skin Appearance) Assessed -Temperature (Lisa-wound Skin No Abnormality Appearance) (Pt Warm) -Tenderness on Palpation (Lisa-wound No Skin Appearance) -Ulcer Cleansing Wound Cleanser -Foul Odor after Cleansing No -Anesthetic Used 5% Lidocaine Gel #1 R 2nd toe amp -Combined with other wound No -Current Size (cm) - Length 1.5 -Current Size (cm) - Width 0.5 -Current Size (cm) - Depth 0.1 -Total Square Cm 0.75 -Photo Taken No -Epithelialization Small 1-33% -Tunneling No -Undermining/Tunneling No -Circular Undermining No -Exudate Amt None Present -Wound Margin Fibrotic Scar, Thickened Scar -Granulation Amt Small (1-33%) -Granulation Quality [place] -Slough/Fibrin Yes -Necrosis Amt Large (67-100%) -Necrotic Tissue Type Adherent Slough -Structure Exposed N/A -Texture (Lisa-wound Skin Appearance) Assessed Localized Edema -Moisture (Lisa-wound Skin Appearance Assessed ) Dry/Scaly -Color (Lisa-wound Skin Appearance) Assessed -Temperature (Lisa-wound Skin No Abnormality Appearance) (Pt Warm) -Tenderness on Palpation (Lisa-wound No Skin Appearance) -Ulcer Cleansing Wound Cleanser -Foul Odor after Cleansing No -Anesthetic Used 5% Lidocaine Gel [Edema Assessment] -Lower Limb Edema Present No -Right Calf (cm) 34.0 -Right Ankle (cm) 20.2 -Left Calf (cm) 34.2 -Left Ankle (cm) 20.5 WC - Nurse 2 - General Ulcer CM Notes Start: 03/01/19 08:30 Freq: Status: Active Protocol: Activity Type Activity Date Activity User E-Sign Co-Sign Detail Recorded Client Recorded Date Recorded By Document 03/15/19 08:46 MW [id number] 03/15/19 08:48 MW Document 03/15/19 09:17 AN [id number] 03/15/19 09:30 AN 03/15/19 03/15/19 08:46 09:17 Wound Center Nurse 2 [Procedure/Treatment] #12 left plantar -Time 09:21 -Correct Patient Yes -Correct Side, Site, Position Yes -Correct Procedure Yes -Procedure Performed Yes -Type of Procedure Debridement -Clinical Debridement Subcutaneous -Post Debridement Size (cm) - Length 0.2 -Post Debridement Size (cm) - Width 0.2 -Post Debridement Size (cm) - Depth 0.1 -Total Square Cm 0.04 -Wound/Ulcer Outcome Not Healed -Ulcer Cleansing Rinsed/ Irrigated with Saline -Foul Odor after Cleansing No -Bleeding Controlled with Pressure -Offloading No -Treatment Response Procedure Tolerated Well #11 RIGHT MEDIAL FOOT -Time 09:22 -Correct Patient Yes -Correct Side, Site, Position Yes -Correct Procedure Yes -Procedure Performed Yes -Type of Procedure Debridement -Clinical Debridement Subcutaneous -Post Debridement Size (cm) - Length 12.1 -Post Debridement Size (cm) - Width 1.9 -Post Debridement Size (cm) - Depth 0.2 -Total Square Cm 22.99 -Wound/Ulcer Outcome Not Healed -Ulcer Cleansing Rinsed/ Irrigated with Saline -Foul Odor after Cleansing No -Bleeding Controlled with Pressure -Treatment Response Procedure Tolerated Well #8 r Knee -Time 08:46 -Correct Patient Yes -Correct Side, Site, Position Yes -Correct Procedure Yes -Procedure Performed Yes -Type of Procedure Debridement -Clinical Debridement Subcutaneous -Post Debridement Size (cm) - Length 0.5 -Post Debridement Size (cm) - Width 0.3 -Post Debridement Size (cm) - Depth 0.2 -Total Square Cm 0.15 -Wound/Ulcer Outcome Not Healed -Ulcer Cleansing Rinsed/ Irrigated with Saline -Foul Odor after Cleansing No -Bioengineered Tissue No -Bleeding Controlled with Pressure -Offloading No -Treatment Response Procedure Tolerated Well #6 L Post -Time 09:23 -Correct Patient Yes -Correct Side, Site, Position Yes -Correct Procedure Yes -Procedure Performed Yes -Type of Procedure Debridement -Clinical Debridement Subcutaneous -Post Debridement Size (cm) - Length 20.7 -Post Debridement Size (cm) - Width 2.2 -Post Debridement Size (cm) - Depth 0.2 -Total Square Cm 45.54 -Wound/Ulcer Outcome Not Healed -Ulcer Cleansing Rinsed/ Irrigated with Saline -Foul Odor after Cleansing No -Bleeding Controlled with Pressure -Treatment Response Procedure Tolerated Well #5 R Lat LE -Time 09:23 -Correct Patient Yes -Correct Side, Site, Position Yes -Correct Procedure Yes -Procedure Performed Yes -Type of Procedure Debridement -Clinical Debridement Subcutaneous -Post Debridement Size (cm) - Length 1.5 -Post Debridement Size (cm) - Width 1.5 -Post Debridement Size (cm) - Depth 0.2 -Total Square Cm 2.25 -Wound/Ulcer Outcome Not Healed -Ulcer Cleansing Rinsed/ Irrigated with Saline -Foul Odor after Cleansing No -Bleeding Controlled with Pressure -Treatment Response Procedure Tolerated Well #4 R post LE -Time 09:27 -Correct Patient Yes -Correct Side, Site, Position Yes -Correct Procedure Yes -Procedure Performed Yes -Type of Procedure Debridement -Clinical Debridement Subcutaneous -Post Debridement Size (cm) - Length 2.7 -Post Debridement Size (cm) - Width 2.1 -Post Debridement Size (cm) - Depth 0.2 -Total Square Cm 5.67 -Wound/Ulcer Outcome Not Healed -Ulcer Cleansing Rinsed/ Irrigated with Saline -Foul Odor after Cleansing No -Bleeding Controlled with Pressure -Treatment Response Procedure Tolerated Well #3 R Med LE -Time 09:28 -Correct Patient Yes -Correct Side, Site, Position Yes -Correct Procedure Yes -Procedure Performed Yes -Type of Procedure Debridement -Clinical Debridement Subcutaneous -Post Debridement Size (cm) - Length 1.1 -Post Debridement Size (cm) - Width 0.5 -Post Debridement Size (cm) - Depth 0.4 -Total Square Cm 0.55 -Wound/Ulcer Outcome Not Healed -Ulcer Cleansing Rinsed/ Irrigated with Saline -Foul Odor after Cleansing No -Bioengineered Tissue No -Bleeding Controlled with Pressure -Offloading No -Treatment Response Procedure Tolerated Well #2 R [place] Cluster -Time 09:28 -Correct Patient Yes -Correct Side, Site, Position Yes -Correct Procedure Yes -Procedure Performed Yes -Type of Procedure Debridement -Clinical Debridement Subcutaneous -Post Debridement Size (cm) - Length 5.7 -Post Debridement Size (cm) - Width 2.1 -Post Debridement Size (cm) - Depth 0.2 -Total Square Cm 11.97 -Wound/Ulcer Outcome Not Healed -Ulcer Cleansing Rinsed/ Irrigated with Saline -Foul Odor after Cleansing No -Bioengineered Tissue No -Offloading No -Treatment Response Procedure Tolerated Well #1 R 2nd toe amp -Time 09:29 -Correct Patient Yes -Correct Side, Site, Position Yes -Correct Procedure Yes -Procedure Performed Yes -Type of Procedure Debridement -Clinical Debridement Subcutaneous -Post Debridement Size (cm) - Length 1.5 -Post Debridement Size (cm) - Width 0.5 -Post Debridement Size (cm) - Depth 0.1 -Total Square Cm 0.75 -Wound/Ulcer Outcome Not Healed -Ulcer Cleansing Rinsed/ Irrigated with Saline -Foul Odor after Cleansing No -Bleeding Controlled with Pressure -Offloading No -Treatment Response Procedure Tolerated Well [See Physician Procedure note for Specifics] Pain Scale: 0-10 Numeric [Pain] -Is Patient Pain Free? Yes Yes Musculoskeletal: No Tenderness to Palpation of Joints or Extremities, Muscle Wasting, - - Open ray resections right foot noted and unchanged Neurological: - - Lack of epicritic sensation light touch bilateral Psych/Mental Status: Normal Affect, Appropriate Debridement Note Post-Debridement Measurements/Treatment WC - Nurse 2 - General Ulcer CM Notes Start: 03/01/19 08:30 Freq: Status: Active Protocol: Activity Type Activity Date Activity User E-Sign Co-Sign Detail Recorded Client Recorded Date Recorded By Document 03/01/19 09:16 MW [id number] 03/01/19 09:17 MW Document 03/01/19 09:25 JF [id number] 03/01/19 09:37 JF Document 03/15/19 08:46 MW [id number] 03/15/19 08:48 MW Document 03/15/19 09:17 AN [id number] 03/15/19 09:30 AN 03/01/19 03/01/19 03/15/19 09:16 09:25 08:46 Wound Center Nurse 2 #12 left plantar -Time 09:28 -Correct Patient Yes -Correct Side, Site, Position Yes -Correct Procedure Yes -Procedure Performed Yes -Type of Procedure Debridement -Clinical Debridement Subcutaneous -Post Debridement Size (cm) - Length 0.3 -Post Debridement Size (cm) - Width 0.3 -Post Debridement Size (cm) - Depth 0.1 -Total Square Cm 0.09 -Wound/Ulcer Outcome Not Healed -Ulcer Cleansing Rinsed/ Irrigated with Saline -Foul Odor after Cleansing No -Bioengineered Tissue No -Bleeding Controlled with Pressure -Offloading No -Treatment Response Procedure Tolerated Well #11 RIGHT MEDIAL FOOT -Time 09:25 -Correct Patient Yes -Correct Side, Site, Position Yes -Correct Procedure Yes -Procedure Performed Yes -Type of Procedure Debridement -Clinical Debridement Subcutaneous -Post Debridement Size (cm) - Length 1.8 -Post Debridement Size (cm) - Width 13 -Post Debridement Size (cm) - Depth 0.4 -Total Square Cm 23.4 -Wound/Ulcer Outcome Not Healed -Ulcer Cleansing Rinsed/ Irrigated with Saline -Foul Odor after Cleansing No -Bioengineered Tissue No -Bleeding Controlled with Pressure -Offloading No -Treatment Response Procedure Tolerated Well #8 r Knee -Time 09:16 08:46 -Correct Patient Yes Yes -Correct Side, Site, Position Yes Yes -Correct Procedure Yes Yes -Procedure Performed Yes Yes -Type of Procedure Debridement Debridement -Clinical Debridement Subcutaneous Subcutaneous -Post Debridement Size (cm) - Length 0.5 0.5 -Post Debridement Size (cm) - Width 0.4 0.3 -Post Debridement Size (cm) - Depth 0.2 0.2 -Total Square Cm 0.20 0.15 -Wound/Ulcer Outcome Not Healed Not Healed -Ulcer Cleansing Rinsed/ Rinsed/ Irrigated with Irrigated with Saline Saline -Foul Odor after Cleansing No No -Bioengineered Tissue No No -Bleeding Controlled with Pressure Pressure -Offloading No No -Treatment Response Procedure Procedure Tolerated Well Tolerated Well #6 L Post -Time 09:35 -Correct Patient Yes -Correct Side, Site, Position Yes -Correct Procedure Yes -Procedure Performed Yes -Type of Procedure Debridement -Clinical Debridement Subcutaneous -Post Debridement Size (cm) - Length 22.5 -Post Debridement Size (cm) - Width 2.1 -Post Debridement Size (cm) - Depth 0.5 -Total Square Cm 47.25 -Wound/Ulcer Outcome Not Healed -Ulcer Cleansing Rinsed/ Irrigated with Saline -Foul Odor after Cleansing No -Bioengineered Tissue No -Bleeding Controlled with Pressure -Offloading No -Treatment Response Procedure Tolerated Well #5 R Lat LE -Time 09:26 -Correct Patient Yes -Correct Side, Site, Position Yes -Correct Procedure Yes -Procedure Performed Yes -Type of Procedure Debridement -Clinical Debridement Subcutaneous -Post Debridement Size (cm) - Length 2.1 -Post Debridement Size (cm) - Width 1.6 -Post Debridement Size (cm) - Depth 0.2 -Total Square Cm 3.36 -Wound/Ulcer Outcome Not Healed -Ulcer Cleansing Rinsed/ Irrigated with Saline -Foul Odor after Cleansing No -Bioengineered Tissue No -Bleeding Controlled with Pressure -Offloading No -Treatment Response Procedure Tolerated Well #4 R post LE -Time 09:26 -Correct Patient Yes -Correct Side, Site, Position Yes -Correct Procedure Yes -Procedure Performed Yes -Type of Procedure Debridement -Clinical Debridement Subcutaneous -Post Debridement Size (cm) - Length 3.2 -Post Debridement Size (cm) - Width 2.5 -Post Debridement Size (cm) - Depth 0.3 -Total Square Cm 8.00 -Wound/Ulcer Outcome Not Healed -Ulcer Cleansing Rinsed/ Irrigated with Saline -Foul Odor after Cleansing No -Bioengineered Tissue No -Bleeding Controlled with Pressure -Offloading No -Treatment Response Procedure Tolerated Well #3 R Med LE -Time 09:26 -Correct Patient Yes -Correct Side, Site, Position Yes -Correct Procedure Yes -Procedure Performed Yes -Type of Procedure Debridement -Clinical Debridement Subcutaneous -Post Debridement Size (cm) - Length 2.6 -Post Debridement Size (cm) - Width 0.6 -Post Debridement Size (cm) - Depth 0.3 -Total Square Cm 1.56 -Wound/Ulcer Outcome Not Healed -Ulcer Cleansing Rinsed/ Irrigated with Saline -Foul Odor after Cleansing No -Bioengineered Tissue No -Bleeding Controlled with Pressure -Offloading No -Treatment Response Procedure Tolerated Well #2 R [place] Cluster -Time 09:27 -Correct Patient Yes -Correct Side, Site, Position Yes -Correct Procedure Yes -Procedure Performed Yes -Type of Procedure Debridement -Clinical Debridement Subcutaneous -Post Debridement Size (cm) - Length 9.1 -Post Debridement Size (cm) - Width 2.5 -Post Debridement Size (cm) - Depth 0.1 -Total Square Cm 22.75 -Wound/Ulcer Outcome Not Healed -Ulcer Cleansing Rinsed/ Irrigated with Saline -Foul Odor after Cleansing No -Bioengineered Tissue No -Bleeding Controlled with Pressure -Offloading No -Treatment Response Procedure Tolerated Well #1 R 2nd toe amp -Time 09:27 -Correct Patient Yes -Correct Side, Site, Position Yes -Correct Procedure Yes -Procedure Performed Yes -Type of Procedure Debridement -Clinical Debridement Subcutaneous -Post Debridement Size (cm) - Length 2.1 -Post Debridement Size (cm) - Width 0.3 -Post Debridement Size (cm) - Depth 0.3 -Total Square Cm 0.63 -Wound/Ulcer Outcome Not Healed -Ulcer Cleansing Rinsed/ Irrigated with Saline -Foul Odor after Cleansing No -Bioengineered Tissue No -Bleeding Controlled with Pressure -Offloading No -Treatment Response Procedure Tolerated Well Pain Scale: 0-10 Numeric Is Patient Pain Free? Yes Yes 03/15/19 09:17 Wound Center Nurse 2 #12 left plantar -Time 09:21 -Correct Patient Yes -Correct Side, Site, Position Yes -Correct Procedure Yes -Procedure Performed Yes -Type of Procedure Debridement -Clinical Debridement Subcutaneous -Post Debridement Size (cm) - Length 0.2 -Post Debridement Size (cm) - Width 0.2 -Post Debridement Size (cm) - Depth 0.1 -Total Square Cm 0.04 -Wound/Ulcer Outcome Not Healed -Ulcer Cleansing Rinsed/ Irrigated with Saline -Foul Odor after Cleansing No -Bioengineered Tissue -Bleeding Controlled with Pressure -Offloading No -Treatment Response Procedure Tolerated Well #11 RIGHT MEDIAL FOOT -Time 09:22 -Correct Patient Yes -Correct Side, Site, Position Yes -Correct Procedure Yes -Procedure Performed Yes -Type of Procedure Debridement -Clinical Debridement Subcutaneous -Post Debridement Size (cm) - Length 12.1 -Post Debridement Size (cm) - Width 1.9 -Post Debridement Size (cm) - Depth 0.2 -Total Square Cm 22.99 -Wound/Ulcer Outcome Not Healed -Ulcer Cleansing Rinsed/ Irrigated with Saline -Foul Odor after Cleansing No -Bioengineered Tissue -Bleeding Controlled with Pressure -Offloading -Treatment Response Procedure Tolerated Well #8 r Knee -Time -Correct Patient -Correct Side, Site, Position -Correct Procedure -Procedure Performed -Type of Procedure -Clinical Debridement -Post Debridement Size (cm) - Length -Post Debridement Size (cm) - Width -Post Debridement Size (cm) - Depth -Total Square Cm -Wound/Ulcer Outcome -Ulcer Cleansing -Foul Odor after Cleansing -Bioengineered Tissue -Bleeding Controlled with -Offloading -Treatment Response #6 L Post -Time 09:23 -Correct Patient Yes -Correct Side, Site, Position Yes -Correct Procedure Yes -Procedure Performed Yes -Type of Procedure Debridement -Clinical Debridement Subcutaneous -Post Debridement Size (cm) - Length 20.7 -Post Debridement Size (cm) - Width 2.2 -Post Debridement Size (cm) - Depth 0.2 -Total Square Cm 45.54 -Wound/Ulcer Outcome Not Healed -Ulcer Cleansing Rinsed/ Irrigated with Saline -Foul Odor after Cleansing No -Bioengineered Tissue -Bleeding Controlled with Pressure -Offloading -Treatment Response Procedure Tolerated Well #5 R Lat LE -Time 09:23 -Correct Patient Yes -Correct Side, Site, Position Yes -Correct Procedure Yes -Procedure Performed Yes -Type of Procedure Debridement -Clinical Debridement Subcutaneous -Post Debridement Size (cm) - Length 1.5 -Post Debridement Size (cm) - Width 1.5 -Post Debridement Size (cm) - Depth 0.2 -Total Square Cm 2.25 -Wound/Ulcer Outcome Not Healed -Ulcer Cleansing Rinsed/ Irrigated with Saline -Foul Odor after Cleansing No -Bioengineered Tissue -Bleeding Controlled with Pressure -Offloading -Treatment Response Procedure Tolerated Well #4 R post LE -Time 09:27 -Correct Patient Yes -Correct Side, Site, Position Yes -Correct Procedure Yes -Procedure Performed Yes -Type of Procedure Debridement -Clinical Debridement Subcutaneous -Post Debridement Size (cm) - Length 2.7 -Post Debridement Size (cm) - Width 2.1 -Post Debridement Size (cm) - Depth 0.2 -Total Square Cm 5.67 -Wound/Ulcer Outcome Not Healed -Ulcer Cleansing Rinsed/ Irrigated with Saline -Foul Odor after Cleansing No -Bioengineered Tissue -Bleeding Controlled with Pressure -Offloading -Treatment Response Procedure Tolerated Well #3 R Med LE -Time 09:28 -Correct Patient Yes -Correct Side, Site, Position Yes -Correct Procedure Yes -Procedure Performed Yes -Type of Procedure Debridement -Clinical Debridement Subcutaneous -Post Debridement Size (cm) - Length 1.1 -Post Debridement Size (cm) - Width 0.5 -Post Debridement Size (cm) - Depth 0.4 -Total Square Cm 0.55 -Wound/Ulcer Outcome Not Healed -Ulcer Cleansing Rinsed/ Irrigated with Saline -Foul Odor after Cleansing No -Bioengineered Tissue No -Bleeding Controlled with Pressure -Offloading No -Treatment Response Procedure Tolerated Well #2 R [place] Cluster -Time 09:28 -Correct Patient Yes -Correct Side, Site, Position Yes -Correct Procedure Yes -Procedure Performed Yes -Type of Procedure Debridement -Clinical Debridement Subcutaneous -Post Debridement Size (cm) - Length 5.7 -Post Debridement Size (cm) - Width 2.1 -Post Debridement Size (cm) - Depth 0.2 -Total Square Cm 11.97 -Wound/Ulcer Outcome Not Healed -Ulcer Cleansing Rinsed/ Irrigated with Saline -Foul Odor after Cleansing No -Bioengineered Tissue No -Bleeding Controlled with -Offloading No -Treatment Response Procedure Tolerated Well #1 R 2nd toe amp -Time 09:29 -Correct Patient Yes -Correct Side, Site, Position Yes -Correct Procedure Yes -Procedure Performed Yes -Type of Procedure Debridement -Clinical Debridement Subcutaneous -Post Debridement Size (cm) - Length 1.5 -Post Debridement Size (cm) - Width 0.5 -Post Debridement Size (cm) - Depth 0.1 -Total Square Cm 0.75 -Wound/Ulcer Outcome Not Healed -Ulcer Cleansing Rinsed/ Irrigated with Saline -Foul Odor after Cleansing No -Bioengineered Tissue -Bleeding Controlled with Pressure -Offloading No -Treatment Response Procedure Tolerated Well Pain Scale: 0-10 Numeric Is Patient Pain Free? Yes Wound debrided: anterior leg Laterality: Right Wound Grade/Stage: grade 1 Type of Debridement: Excisional debridement Anesthesia Used: 5% Lidocaine Gel Depth: in the subcutaneous layer Percentage of wound debrided: 100 Instrument Used: #15 blade Tissue Removed: fibrous, devitalized subcutaneous, biofilm, slough Severity: Fat Layer Exposed Amount of bleeding with debridement: Mild Bleeding Controlled with: Pressure Patient tolerated procedure well - Additional Wound Wound debrided: medial leg Laterality: Right Wound Grade/Stage: grade 1 Type of Debridement: Excisional debridement Anesthesia Used: 5% Lidocaine Gel Depth: in the subcutaneous layer Percentage of wound debrided: 100 Instrument Used: #15 blade Tissue Removed: fibrous, devitalized subcutaneous, biofilm, slough Severity: Fat Layer Exposed Amount of bleeding with debridement: Mild Bleeding Controlled with: Pressure Patient tolerated procedure: Patient tolerated procedure well - Additional Wound Wound debrided: lateral leg Laterality: Right Wound Grade/Stage: grade 1 Type of Debridement: Excisional debridement Anesthesia Used: 5% Lidocaine Gel Depth: in the subcutaneous layer Percentage of wound debrided: 100 Instrument Used: #15 blade Tissue Removed: fibrous, devitalized subcutaneous, biofilm, slough Severity: Fat Layer Exposed Amount of bleeding with debridement: Mild Bleeding Controlled with: Pressure Patient tolerated procedure: Patient tolerated procedure well - Additional Wound Wound debrided: posterior leg Laterality: Right Wound Grade/Stage: grade 2 Anesthesia Used: 5% Lidocaine Gel Depth: in the subcutaneous layer Percentage of wound debrided: 100 Instrument Used: #15 blade Tissue Removed: fibrous, devitalized subcutaneous, biofilm, slough Severity: Fat Layer Exposed Amount of bleeding with debridement: Mild Bleeding Controlled with: Pressure - Additional Wound Wound debrided: posterior leg Laterality: Left Wound Grade/Stage: grade 2 Type of Debridement: Excisional debridement Anesthesia Used: 5% Lidocaine Gel Depth: in the subcutaneous layer Percentage of wound debrided: 100 Instrument Used: #15 blade Tissue Removed: fibrous, devitalized subcutaneous, biofilm, slough Severity: Fat Layer Exposed Amount of bleeding with debridement: Mild Bleeding Controlled with: Pressure Patient tolerated procedure: Patient tolerated procedure well - Additional Wound Wound debrided: amputation site near toes Laterality: Right Wound Grade/Stage: grade 3 Type of Debridement: Excisional debridement Anesthesia Used: 5% Lidocaine Gel Depth: in the subcutaneous layer Percentage of wound debrided: 100 Instrument Used: #15 blade Tissue Removed: fibrous, devitalized subcutaneous, biofilm, slough Severity: Fat Layer Exposed Amount of bleeding with debridement: Mild Bleeding Controlled with: Pressure Patient tolerated procedure: Patient tolerated procedure well - Additional Wound Wound debrided: medial foot Laterality: Right Wound Grade/Stage: grade 3 Type of Debridement: Excisional debridement Anesthesia Used: 5% Lidocaine Gel Depth: in the subcutaneous layer Percentage of wound debrided: 100 Instrument Used: #15 blade Tissue Removed: fibrous, devitalized subcutaneous, biofilm, slough Severity: Fat Layer Exposed Amount of bleeding with debridement: Mild Bleeding Controlled with: Pressure Patient tolerated procedure: Patient tolerated procedure well Assessment/Plan Active Problems (Last Updated 09/28/18 @ 12:41 by Geraldine Steele) Ulcer of right foot with fat layer exposed (Chronic) 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) 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) Skin ulcer of right knee with fat layer exposed (Chronic) Delayed wound healing (Chronic) Vasculitis (Chronic) Tobacco dependence due to cigarettes (Chronic) Ulcer of left lower extremity with fat layer exposed (Chronic) Type 2 diabetes mellitus with diabetic polyneuropathy (Chronic) Assessment: Open second and third ray resection secondary to 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 Diabetic neuropathy. Malnutrition suspected. 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 Delayed healing. Gait impairment and fall risk. Other comorbidities, right knee ulcer Plan: I reviewed and discussed his case today. He was reassured no infections are noted. Debridement done as documented above in the nursing clinical panel. Procedure was well-tolerated. Continue hydrogel and Adaptic; to change daily due to the reported dryness. His continued tendon exposure to the posterior bilateral legs is noted in the gave him a prescription for an offloading donut pillow. He uses this at times on the right lower extremity. It is a prescription was provided for him to obtain this for the left lower extremity. He understands he may need to also prop his heels up on a pillow as long as is not causing any new pressure changes to those sites. Elevate lower extremities when seated and in bed. Continue increased protein intake. I recommend he avoids laying directly on his wounds to reduce pressure, and I was concerned about his perfusion to his limbs. He had an arterial Doppler scheduled with Dr. Morgan's staff on August 02, 2018 and overall perfusion was confirmed; additional intervention or workup was not recommended. It is also noted that he did have venous Doppler performed with reflux evaluation. He did not have evidence of deep venous thrombosis or venous insufficiency at that time; the vessels were compressible. To continue with nutritional supplementation optimize healing; I recommend Juan. I recommend he sustained from smoking and alcohol activities to optimize healing as well. His workup for vasculitis and underlying autoimmune disorder is also pending. A punch biopsy was sent during his last surgical intervention on June 10 and this demonstrated inflammatory changes without malignancy. He had initial screening labs and so far he has a negative RA titer, HL of the 27, KEVIN, anti-CCP, and rheumatoid factor. Several his antibody screenings were not reportable. Hyperbaric oxygen therapy was recommended and it is noted his ejection fraction was most recently 50%. He refuses at this time. Dr. Gilbert continues to manage his right knee ulcer including debridements and traditional wound care plan. He refuses surgical intervention at this time to bilateral lower extremities. I answered all of his questions. Additional amputation of the right foot is not planned due to his fairly nonambulatory status. Smoking cessation was strongly recommended and is imperative to optimize healing. He reports he is cutting back. I recommend further follow-up at the wound care center 2 week with me, or call sooner if he has any questions. Compliance at this advanced wound care center was reviewed. He understands additional palliative care programs are an option if he does not wish to proceed with advanced wound care opportunities that has been recommended. 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
== END 2019-03-21 23:59 ==
LOC: WC 08:00
PROVIDERS: Family Provider Family Medicine; PCP Family Medicine; Visit Provider Podiatrist
DX: E11.622 Type 2 diabetes mellitus with other skin ulcer (principal); F17.210 Nicotine dependence, cigarettes, uncomplicated; E11.51 Type 2 diabetes mellitus with diabetic peripheral angiopathy without gangrene; L97.812 Non-pressure chronic ulcer of other part of right lower leg with fat layer exposed; L97.822 Non-pressure chronic ulcer of other part of left lower leg with fat layer exposed; L97.512 Non-pressure chronic ulcer of other part of right foot with fat layer exposed; E11.621 Type 2 diabetes mellitus with foot ulcer; L97.522 Non-pressure chronic ulcer of other part of left foot with fat layer exposed; E11.42 Type 2 diabetes mellitus with diabetic polyneuropathy
CPT/HCPCS: 11042; 11045

== ENCOUNTER 2019-04-12 08:00 | Outpatient (RCR) | payer MEDICARE, SELFPAY ==
[2019-03-22 01:00] VITALS: BP 121/87; PULSE 97; RESP 16; TEMP 35.5
[2019-03-29 08:17] VITALS: BP 124/98; PULSE 82; RESP 18; TEMP 36.2
[2019-03-29 08:40] VITALS: BP 124/98; PULSE 82; RESP 18; TEMP 36.2
--- NOTE | 2019-03-29 10:12 | PCM.WC.PN ---
(1) Skin ulcer of right knee with fat layer exposed Status: Chronic Current Visit: Yes Code(s): L97.812 - Non-pressure chronic ulcer of other part of right lower leg with fat layer exposed (2) Skin ulcer of left knee with fat layer exposed Status: Chronic Current Visit: Yes Code(s): L97.822 - Non-pressure chronic ulcer of other part of left lower leg with fat layer exposed Type of Wound Chief Complaint: right and left Leg ulcers and right and left foot ulcers History of Wound: Mr. Arguello is a 64-year-old male with multiple comorbidities follows up for delayed healing ulcers to the right and left foot as well as bilateral legs. It is noted he previously had widespread debridements and fasciotomies performed to bilateral lower extremities secondary to life-threatening and limb threatening infection; this was previously performed at [facility]. He continues to follow with Dr. Gilbert for his right knee ulcer. He denies chills, fever or otherwise feeling of unwell. He presents today with his . He still refuses advanced wound care product application. He refuses hyperbaric oxygen therapy treatment. He elects to proceed with a palliative care plan because he is refusing the other treatment recommendations. He is with his today. His dressings are being changed every other day and his reports they are still dry and she elected not to change them daily. The patient admits he continues to lay with the ulcer sites pressing on furniture most of the day. Progress of Wound: Right knee is stable. No new concerns at this time. - Physical Exam Vital Signs Temp Pulse Resp BP 97.1 F L 82 18 124/98 H 03/29/19 08:40 03/29/19 08:40 03/29/19 08:40 03/29/19 08:40 General: Alert, Oriented x3, No apparent distress HEENT: Atraumatic, Normocephalic Oral: Moist Mucosa Neck: Supple, No JVD Lungs: Normal air movement Extremities: No cyanosis Skin: Ulcer/ Wound Wound Measurements and Assessment WC - Nurse 1 - General Ulcer Measurement Start: 03/29/19 08:16 Freq: Status: Active Protocol: Activity Type Activity Date Activity User E-Sign Co-Sign Detail Recorded Client Recorded Date Recorded By Document 03/29/19 08:17 DV [id number] 03/29/19 08:34 DV Document 03/29/19 08:40 RB [id number] 03/29/19 08:50 RB 03/29/19 03/29/19 08:17 08:40 Wound Center Nurse 1 [Ulcer Assessment] #12 left plantar -Combined with other wound No No -Current Size (cm) - Length 0.1 -Current Size (cm) - Width 0.1 -Current Size (cm) - Depth 0.1 -Total Square Cm 0.01 -Photo Taken No No -Tunneling No -Undermining/Tunneling No -Circular Undermining No -Exudate Amt Small -Exudate Type Serosanguineous -Wound Margin Distinct, Outline Attached -Granulation Amt Medium (34-66%) -Granulation Quality [place] -Slough/Fibrin Yes -Necrosis Amt Small (1-33%) -Necrotic Tissue Type Adherent Slough -Structure Exposed N/A -Texture (Lisa-wound Skin Appearance) Assessed -Moisture (Lisa-wound Skin Appearance Assessed ) -Color (Lisa-wound Skin Appearance) Assessed -Temperature (Lisa-wound Skin No Abnormality Appearance) (Pt Warm) -Tenderness on Palpation (Lisa-wound No Skin Appearance) -Ulcer Cleansing Rinsed/ Irrigated with Saline -Foul Odor after Cleansing No -Anesthetic Used 4% Lidocaine Solution #11 RIGHT MEDIAL FOOT -Combined with other wound No -Current Size (cm) - Length 13 -Current Size (cm) - Width 0.2 -Current Size (cm) - Depth 0.4 -Total Square Cm 2.6 -Photo Taken No -Tunneling No -Undermining/Tunneling No -Circular Undermining No -Exudate Amt Small -Exudate Type Serosanguineous -Wound Margin Distinct, Outline Attached -Granulation Amt Medium (34-66%) -Granulation Quality [place] -Slough/Fibrin Yes -Necrosis Amt Small (1-33%) -Structure Exposed N/A -Texture (Lisa-wound Skin Appearance) Assessed -Moisture (Lisa-wound Skin Appearance Assessed ) -Color (Lisa-wound Skin Appearance) Assessed -Temperature (Lisa-wound Skin No Abnormality Appearance) (Pt Warm) -Tenderness on Palpation (Lisa-wound No Skin Appearance) -Ulcer Cleansing Rinsed/ Irrigated with Saline -Foul Odor after Cleansing No -Anesthetic Used 4% Lidocaine Solution #8 r Knee -Combined with other wound No -Current Size (cm) - Length 0.7 -Current Size (cm) - Width 0.5 -Current Size (cm) - Depth 0.2 -Total Square Cm 0.35 -Photo Taken No -Tunneling No -Undermining/Tunneling No -Circular Undermining No -Exudate Amt Small -Exudate Type Serosanguineous -Wound Margin Distinct, Outline Attached -Granulation Amt Medium (34-66%) -Granulation Quality [place] -Slough/Fibrin Yes -Necrosis Amt Medium (34-66%) -Necrotic Tissue Type Adherent Slough -Structure Exposed N/A -Texture (Lisa-wound Skin Appearance) Assessed -Moisture (Lisa-wound Skin Appearance Assessed ) -Color (Lisa-wound Skin Appearance) Assessed -Temperature (Lisa-wound Skin No Abnormality Appearance) (Pt Warm) -Tenderness on Palpation (Lisa-wound No Skin Appearance) -Ulcer Cleansing Rinsed/ Irrigated with Saline -Foul Odor after Cleansing No -Anesthetic Used 4% Lidocaine Solution #6 L Post -Combined with other wound No -Current Size (cm) - Length 21.5 -Current Size (cm) - Width 1.8 -Current Size (cm) - Depth 0.3 -Total Square Cm 38.70 -Tunneling No -Undermining/Tunneling No -Circular Undermining No -Exudate Amt Small -Exudate Type Serosanguineous -Wound Margin Distinct, Outline Attached -Granulation Amt Medium (34-66%) -Granulation Quality [place] -Slough/Fibrin Yes -Necrosis Amt Small (1-33%) -Necrotic Tissue Type Adherent Slough -Structure Exposed N/A -Texture (Lisa-wound Skin Appearance) Assessed -Moisture (Lisa-wound Skin Appearance Assessed ) -Color (Lisa-wound Skin Appearance) Assessed -Temperature (Lisa-wound Skin No Abnormality Appearance) (Pt Warm) -Tenderness on Palpation (Lisa-wound No Skin Appearance) -Ulcer Cleansing Wound Cleanser -Foul Odor after Cleansing No -Anesthetic Used 4% Lidocaine Solution #5 R Lat LE -Combined with other wound No -Current Size (cm) - Length 0.1 -Current Size (cm) - Width 0.1 -Current Size (cm) - Depth 0.3 -Total Square Cm 0.01 -Photo Taken No -Tunneling No -Undermining/Tunneling No -Circular Undermining No -Exudate Amt Small -Exudate Type Serosanguineous -Wound Margin Distinct, Outline Attached -Granulation Amt Medium (34-66%) -Granulation Quality [place] -Slough/Fibrin Yes -Necrosis Amt Small (1-33%) -Necrotic Tissue Type Adherent Slough -Structure Exposed N/A -Texture (Lisa-wound Skin Appearance) Assessed -Moisture (Lisa-wound Skin Appearance Assessed ) Dry/Scaly -Color (Lisa-wound Skin Appearance) Assessed -Temperature (Lisa-wound Skin No Abnormality Appearance) (Pt Warm) -Tenderness on Palpation (Lisa-wound No Skin Appearance) -Ulcer Cleansing Wound Cleanser -Foul Odor after Cleansing No -Anesthetic Used 4% Lidocaine Solution #4 R post LE -Combined with other wound No -Current Size (cm) - Length 0.8 -Current Size (cm) - Width 2.5 -Current Size (cm) - Depth 0.2 -Total Square Cm 2.00 -Tunneling No -Undermining/Tunneling No -Circular Undermining No -Exudate Amt Small -Exudate Type Serosanguineous -Wound Margin Distinct, Outline Attached -Granulation Amt Medium (34-66%) -Granulation Quality [place] -Slough/Fibrin Yes -Necrosis Amt Medium (34-66%) -Necrotic Tissue Type Adherent Slough -Structure Exposed N/A -Texture (Lisa-wound Skin Appearance) Assessed -Moisture (Lisa-wound Skin Appearance Dry/Scaly ) -Color (Lisa-wound Skin Appearance) Assessed -Temperature (Lisa-wound Skin No Abnormality Appearance) (Pt Warm) -Tenderness on Palpation (Lisa-wound No Skin Appearance) -Ulcer Cleansing Wound Cleanser -Foul Odor after Cleansing No -Anesthetic Used 4% Lidocaine Solution #3 R Med LE -Combined with other wound No -Current Size (cm) - Length 0.1 -Current Size (cm) - Width 0.1 -Current Size (cm) - Depth 0.1 -Total Square Cm 0.01 -Tunneling No -Undermining/Tunneling No -Circular Undermining No -Exudate Amt Small -Exudate Type Serosanguineous -Wound Margin Distinct, Outline Attached -Granulation Amt Medium (34-66%) -Granulation Quality [place] -Slough/Fibrin Yes -Necrosis Amt Medium (34-66%) -Necrotic Tissue Type Adherent Slough -Structure Exposed N/A -Texture (Lisa-wound Skin Appearance) Assessed -Moisture (Lisa-wound Skin Appearance Assessed ) -Color (Lisa-wound Skin Appearance) Assessed -Temperature (Lisa-wound Skin No Abnormality Appearance) (Pt Warm) -Tenderness on Palpation (Lisa-wound No Skin Appearance) -Ulcer Cleansing Wound Cleanser -Foul Odor after Cleansing No -Anesthetic Used 4% Lidocaine Solution #2 R [place] Cluster -Combined with other wound No -Current Size (cm) - Length 10.5 -Current Size (cm) - Width 2.5 -Current Size (cm) - Depth 0.2 -Total Square Cm 26.25 -Tunneling No -Undermining/Tunneling No -Circular Undermining No -Exudate Amt Small -Exudate Type Serosanguineous -Wound Margin Distinct, Outline Attached -Granulation Amt Medium (34-66%) -Granulation Quality [place] -Slough/Fibrin Yes -Necrosis Amt Medium (34-66%) -Necrotic Tissue Type Adherent Slough -Structure Exposed N/A -Texture (Lisa-wound Skin Appearance) Assessed -Moisture (Lisa-wound Skin Appearance Dry/Scaly ) -Color (Lisa-wound Skin Appearance) Assessed -Temperature (Lisa-wound Skin No Abnormality Appearance) (Pt Warm) -Tenderness on Palpation (Lisa-wound No Skin Appearance) -Ulcer Cleansing Wound Cleanser -Foul Odor after Cleansing No -Anesthetic Used 4% Lidocaine Solution #1 R 2nd toe amp -Combined with other wound No -Current Size (cm) - Length 1.5 -Current Size (cm) - Width 0.4 -Current Size (cm) - Depth 0.3 -Total Square Cm 0.60 -Tunneling No -Undermining/Tunneling No -Circular Undermining No -Exudate Amt Small -Exudate Type Serosanguineous -Wound Margin Distinct, Outline Attached -Granulation Amt Medium (34-66%) -Granulation Quality [place] -Necrosis Amt Medium (34-66%) -Necrotic Tissue Type Adherent Slough -Structure Exposed N/A -Texture (Lisa-wound Skin Appearance) Assessed -Moisture (Lisa-wound Skin Appearance Assessed ) -Color (Lisa-wound Skin Appearance) Assessed -Temperature (Lisa-wound Skin No Abnormality Appearance) (Pt Warm) -Tenderness on Palpation (Lisa-wound No Skin Appearance) -Ulcer Cleansing Wound Cleanser -Foul Odor after Cleansing No -Anesthetic Used 5% Lidocaine Gel [Edema Assessment] -Lower Limb Edema Present No -Right Calf (cm) 34.0 -Right Ankle (cm) 23.0 -Left Calf (cm) 34.5 -Left Ankle (cm) 23.5 WC - Nurse 2 - General Ulcer CM Notes Start: 03/29/19 08:16 Freq: Status: Active Protocol: Activity Type Activity Date Activity User E-Sign Co-Sign Detail Recorded Client Recorded Date Recorded By Document 03/29/19 08:57 AN [id number] 03/29/19 09:05 AN 03/29/19 08:57 Wound Center Nurse 2 [Procedure/Treatment] #12 left plantar -Time 08:58 -Correct Patient Yes -Correct Side, Site, Position Yes -Correct Procedure Yes -Procedure Performed Yes -Type of Procedure Debridement -Clinical Debridement Subcutaneous -Post Debridement Size (cm) - Length 0.2 -Post Debridement Size (cm) - Width 0.2 -Post Debridement Size (cm) - Depth 0.1 -Total Square Cm 0.04 #11 RIGHT MEDIAL FOOT -Time 08:58 -Correct Patient Yes -Correct Side, Site, Position Yes -Correct Procedure Yes -Procedure Performed Yes -Type of Procedure Debridement -Clinical Debridement Subcutaneous -Post Debridement Size (cm) - Length 13.1 -Post Debridement Size (cm) - Width 0.3 -Post Debridement Size (cm) - Depth 0.4 -Total Square Cm 3.93 -Wound/Ulcer Outcome Not Healed -Ulcer Cleansing Rinsed/ Irrigated with Saline -Foul Odor after Cleansing No -Bioengineered Tissue No -Bleeding Controlled with Pressure -Offloading No -Treatment Response Procedure Tolerated Well #6 L Post -Time 08:59 -Correct Patient Yes -Correct Side, Site, Position Yes -Correct Procedure Yes -Procedure Performed Yes -Type of Procedure Debridement -Clinical Debridement Subcutaneous -Post Debridement Size (cm) - Length 21.6 -Post Debridement Size (cm) - Width 1.9 -Post Debridement Size (cm) - Depth 0.3 -Total Square Cm 41.04 -Wound/Ulcer Outcome Not Healed -Ulcer Cleansing Rinsed/ Irrigated with Saline -Foul Odor after Cleansing No -Bioengineered Tissue No -Bleeding Controlled with Pressure -Offloading No -Treatment Response Procedure Tolerated Well #5 R Lat LE -Time 08:59 -Correct Patient Yes -Correct Side, Site, Position Yes -Correct Procedure Yes -Procedure Performed Yes -Type of Procedure Debridement -Clinical Debridement Subcutaneous -Post Debridement Size (cm) - Length 0.2 -Post Debridement Size (cm) - Width 0.2 -Post Debridement Size (cm) - Depth 0.3 -Total Square Cm 0.04 -Wound/Ulcer Outcome Not Healed -Foul Odor after Cleansing No -Bioengineered Tissue No -Bleeding Controlled with Pressure -Offloading No -Treatment Response Procedure Tolerated Well #4 R post LE -Time 09:00 -Correct Patient Yes -Correct Side, Site, Position Yes -Correct Procedure Yes -Procedure Performed Yes -Type of Procedure Debridement -Clinical Debridement Subcutaneous -Post Debridement Size (cm) - Length 0.9 -Post Debridement Size (cm) - Width 2.6 -Post Debridement Size (cm) - Depth 0.2 -Total Square Cm 2.34 -Wound/Ulcer Outcome Not Healed -Ulcer Cleansing Rinsed/ Irrigated with Saline -Foul Odor after Cleansing No -Bioengineered Tissue No -Bleeding Controlled with Pressure -Offloading No -Treatment Response Procedure Tolerated Well #3 R Med LE -Time 09:00 -Correct Patient Yes -Correct Side, Site, Position Yes -Correct Procedure Yes -Procedure Performed Yes -Type of Procedure Debridement -Clinical Debridement Subcutaneous -Post Debridement Size (cm) - Length 0.2 -Post Debridement Size (cm) - Width 0.2 -Post Debridement Size (cm) - Depth 0.1 -Total Square Cm 0.04 -Wound/Ulcer Outcome Not Healed -Ulcer Cleansing Rinsed/ Irrigated with Saline -Foul Odor after Cleansing No -Bioengineered Tissue No -Bleeding Controlled with Pressure -Offloading No -Treatment Response Procedure Tolerated Well #2 R [place] Cluster -Time 09:00 -Correct Patient Yes -Correct Side, Site, Position Yes -Correct Procedure Yes -Procedure Performed Yes -Type of Procedure Debridement -Clinical Debridement Subcutaneous -Post Debridement Size (cm) - Length 10.6 -Post Debridement Size (cm) - Width 2.6 -Post Debridement Size (cm) - Depth 0.2 -Total Square Cm 27.56 -Wound/Ulcer Outcome Not Healed -Ulcer Cleansing Rinsed/ Irrigated with Saline -Foul Odor after Cleansing No -Bioengineered Tissue No -Bleeding Controlled with Pressure -Offloading No -Treatment Response Procedure Tolerated Well #1 R 2nd toe amp -Time 09:01 -Correct Patient Yes -Correct Side, Site, Position Yes -Correct Procedure Yes -Procedure Performed Yes -Type of Procedure Debridement -Clinical Debridement Subcutaneous -Post Debridement Size (cm) - Length 1.6 -Post Debridement Size (cm) - Width 0.5 -Post Debridement Size (cm) - Depth 0.3 -Total Square Cm 0.80 -Wound/Ulcer Outcome Not Healed -Ulcer Cleansing Rinsed/ Irrigated with Saline -Foul Odor after Cleansing No -Bioengineered Tissue No -Bleeding Controlled with Pressure -Offloading No -Treatment Response Procedure Tolerated Well [See Physician Procedure note for Specifics] Pain Scale: 0-10 Numeric [Pain] -Is Patient Pain Free? Yes Musculoskeletal: No Muscle Wasting Neurological: Cranial nerves II-XII grossly intact Psych/Mental Status: Normal Affect Debridement Note Post-Debridement Measurements/Treatment WC - Nurse 2 - General Ulcer CM Notes Start: 03/29/19 08:16 Freq: Status: Active Protocol: Activity Type Activity Date Activity User E-Sign Co-Sign Detail Recorded Client Recorded Date Recorded By Document 03/29/19 08:57 AN [id number] 03/29/19 09:05 AN 03/29/19 08:57 Wound Center Nurse 2 #12 left plantar -Time 08:58 -Correct Patient Yes -Correct Side, Site, Position Yes -Correct Procedure Yes -Procedure Performed Yes -Type of Procedure Debridement -Clinical Debridement Subcutaneous -Post Debridement Size (cm) - Length 0.2 -Post Debridement Size (cm) - Width 0.2 -Post Debridement Size (cm) - Depth 0.1 -Total Square Cm 0.04 #11 RIGHT MEDIAL FOOT -Time 08:58 -Correct Patient Yes -Correct Side, Site, Position Yes -Correct Procedure Yes -Procedure Performed Yes -Type of Procedure Debridement -Clinical Debridement Subcutaneous -Post Debridement Size (cm) - Length 13.1 -Post Debridement Size (cm) - Width 0.3 -Post Debridement Size (cm) - Depth 0.4 -Total Square Cm 3.93 -Wound/Ulcer Outcome Not Healed -Ulcer Cleansing Rinsed/ Irrigated with Saline -Foul Odor after Cleansing No -Bioengineered Tissue No -Bleeding Controlled with Pressure -Offloading No -Treatment Response Procedure Tolerated Well #6 L Post -Time 08:59 -Correct Patient Yes -Correct Side, Site, Position Yes -Correct Procedure Yes -Procedure Performed Yes -Type of Procedure Debridement -Clinical Debridement Subcutaneous -Post Debridement Size (cm) - Length 21.6 -Post Debridement Size (cm) - Width 1.9 -Post Debridement Size (cm) - Depth 0.3 -Total Square Cm 41.04 -Wound/Ulcer Outcome Not Healed -Ulcer Cleansing Rinsed/ Irrigated with Saline -Foul Odor after Cleansing No -Bioengineered Tissue No -Bleeding Controlled with Pressure -Offloading No -Treatment Response Procedure Tolerated Well #5 R Lat LE -Time 08:59 -Correct Patient Yes -Correct Side, Site, Position Yes -Correct Procedure Yes -Procedure Performed Yes -Type of Procedure Debridement -Clinical Debridement Subcutaneous -Post Debridement Size (cm) - Length 0.2 -Post Debridement Size (cm) - Width 0.2 -Post Debridement Size (cm) - Depth 0.3 -Total Square Cm 0.04 -Wound/Ulcer Outcome Not Healed -Foul Odor after Cleansing No -Bioengineered Tissue No -Bleeding Controlled with Pressure -Offloading No -Treatment Response Procedure Tolerated Well #4 R post LE -Time 09:00 -Correct Patient Yes -Correct Side, Site, Position Yes -Correct Procedure Yes -Procedure Performed Yes -Type of Procedure Debridement -Clinical Debridement Subcutaneous -Post Debridement Size (cm) - Length 0.9 -Post Debridement Size (cm) - Width 2.6 -Post Debridement Size (cm) - Depth 0.2 -Total Square Cm 2.34 -Wound/Ulcer Outcome Not Healed -Ulcer Cleansing Rinsed/ Irrigated with Saline -Foul Odor after Cleansing No -Bioengineered Tissue No -Bleeding Controlled with Pressure -Offloading No -Treatment Response Procedure Tolerated Well #3 R Med LE -Time 09:00 -Correct Patient Yes -Correct Side, Site, Position Yes -Correct Procedure Yes -Procedure Performed Yes -Type of Procedure Debridement -Clinical Debridement Subcutaneous -Post Debridement Size (cm) - Length 0.2 -Post Debridement Size (cm) - Width 0.2 -Post Debridement Size (cm) - Depth 0.1 -Total Square Cm 0.04 -Wound/Ulcer Outcome Not Healed -Ulcer Cleansing Rinsed/ Irrigated with Saline -Foul Odor after Cleansing No -Bioengineered Tissue No -Bleeding Controlled with Pressure -Offloading No -Treatment Response Procedure Tolerated Well #2 R [place] Cluster -Time 09:00 -Correct Patient Yes -Correct Side, Site, Position Yes -Correct Procedure Yes -Procedure Performed Yes -Type of Procedure Debridement -Clinical Debridement Subcutaneous -Post Debridement Size (cm) - Length 10.6 -Post Debridement Size (cm) - Width 2.6 -Post Debridement Size (cm) - Depth 0.2 -Total Square Cm 27.56 -Wound/Ulcer Outcome Not Healed -Ulcer Cleansing Rinsed/ Irrigated with Saline -Foul Odor after Cleansing No -Bioengineered Tissue No -Bleeding Controlled with Pressure -Offloading No -Treatment Response Procedure Tolerated Well #1 R 2nd toe amp -Time 09:01 -Correct Patient Yes -Correct Side, Site, Position Yes -Correct Procedure Yes -Procedure Performed Yes -Type of Procedure Debridement -Clinical Debridement Subcutaneous -Post Debridement Size (cm) - Length 1.6 -Post Debridement Size (cm) - Width 0.5 -Post Debridement Size (cm) - Depth 0.3 -Total Square Cm 0.80 -Wound/Ulcer Outcome Not Healed -Ulcer Cleansing Rinsed/ Irrigated with Saline -Foul Odor after Cleansing No -Bioengineered Tissue No -Bleeding Controlled with Pressure -Offloading No -Treatment Response Procedure Tolerated Well Pain Scale: 0-10 Numeric Is Patient Pain Free? Yes Wound debrided: Right knee Wound Grade/Stage: Stage III Type of Debridement: Excisional debridement Anesthesia Used: 4% Lidocaine Solution Depth: Down to and including healthy tissue, in the subcutaneous layer Percentage of wound debrided: 100 Instrument Used: 3mm curette Tissue Removed: Sloug and devitalized tissue Severity: Fat Layer Exposed Amount of bleeding with debridement: Mild Bleeding Controlled with: Pressure Patient tolerated procedure well Assessment/Plan Active Problems (Last Updated 09/28/18 @ 12:41 by Geraldine Steele) Skin ulcer of right knee with fat layer exposed (Chronic) Skin ulcer of left knee with fat layer exposed (Chronic) Tobacco dependence due to cigarettes (Chronic) Assessment: Open second and third ray resection secondary to 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 Diabetic neuropathy. Malnutrition suspected. 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 Delayed healing. Gait impairment and fall risk. Other comorbidities, right knee ulcer Plan: Slowly improving. Debridement done as documenetd above, procedure was well tolerated. Continue pomogram with adaptic over top. Change every other day. Continue increased protein intake. Elevate lower extremites when seated and in bed. Continue other wound care per Dr. caballero. Follow up in 2 weeks. Currently palliative/complex care.
--- NOTE | 2019-03-29 11:37 | PN.PCM_ITS ---
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 Code(s): L97.923 - Non-pressure chronic ulcer of unspecified part of left lower leg with necrosis of muscle (5) Ulcer of right lower extremity with fat layer exposed Status: Chronic Code(s): L97.912 - Non-pressure chronic ulcer of unspecified part of right lower leg with fat layer exposed (6) Ulcer of left lower extremity with fat layer exposed Status: Chronic Code(s): L97.922 - Non-pressure chronic ulcer of unspecified p art of left lower leg with fat layer exposed (7) 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 Arguello is a 64-year-old male with multiple comorbidities follows up for delayed healing ulcers to the right and left foot as well as bilateral legs. It is noted he previously had widespread debridements and fasci otomies performed to bilateral lower extremities secondary to life-threatening and limb threatening infection; this was previously performed at [facility]. He continues to follow with Dr. Gilbert for his right knee ulcer. He denies chills, fever or otherwise feeling of unwell. He presents today with his . He still refuses advanced wound care product application. He refuses hyperbaric oxygen therapy treatment. He elects to proceed with a palliative care plan because he is refusing the other treatment recommendations. He is with his today. He is trying to keep pressure off this ulcer sites. 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 There is some tendon exposed to the posterior distal right leg and also the posterior distal left leg without necrotic tendon. The peripheral skin is very hairless and atrophic bilateral. There is no maceration bilateral., - - Full epithelialization noted today to the plantar left foot. No bogginess or fluctuance to palpation around the ulcer sites bilateral feet and legs. Wound Measurements and Assessment WC - Nurse 1 - General Ulcer Measurement Start: 03/29/19 08:16 Freq: Status: Active Protocol: Activity Type Activity Date Activity User E-Sign Co-Sign Detail Recorded Client Recorded Date Recorded By Document 03/29/19 08:17 DV [id number] 03/29/19 08:34 DV Document 03/29/19 08:40 RB [id number] 03/29/19 08:50 RB 03/29/19 03/29/19 08:17 08:40 Wound Center Nurse 1 [Ulcer Assessment] #12 left plantar -Combined with other wound No No -Current Size (cm) - Length 0.1 -Current Size (cm) - Width 0.1 -Current Size (cm) - Depth 0.1 -Total Square Cm 0.01 -Photo Taken No No -Tunneling No -Undermining/Tunneling No -Circular Undermining No -Exudate Amt Small -Exudate Type Serosanguineous -Wound Margin Distinct, Outline Attached -Granulation Amt Medium (34-66%) -Granulation Quality [place] -Slough/Fibrin Yes -Necrosis Amt Small (1-33%) -Necrotic Tissue Type Adherent Slough -Structure Exposed N/A -Texture (Lisa-wound Skin Appearance) Assessed -Moisture (Lisa-wound Skin Appearance Assessed ) -Color (Lisa-wound Skin Appearance) Assessed -Temperature (Lisa-wound Skin No Abnormality Appearance) (Pt Warm) -Tenderness on Palpation (Lisa-wound No Skin Appearance) -Ulcer Cleansing Rinsed/ Irrigated with Saline -Foul Odor after Cleansing No -Anesthetic Used 4% Lidocaine Solution #11 RIGHT MEDIAL FOOT -Combined with other wound No -Current Size (cm) - Length 13 -Current Size (cm) - Width 0.2 -Current Size (cm) - Depth 0.4 -Total Square Cm 2.6 -Photo Taken No -Tunneling No -Undermining/Tunneling No -Circular Undermining No -Exudate Amt Small -Exudate Type Serosanguineous -Wound Margin Distinct, Outline Attached -Granulation Amt Medium (34-66%) -Granulation Quality [place] -Slough/Fibrin Yes -Necrosis Amt Small (1-33%) -Structure Exposed N/A -Texture (Lisa-wound Skin Appearance) Assessed -Moisture (Lisa-wound Skin Appearance Assessed ) -Color (Lisa-wound Skin Appearance) Assessed -Temperature (Lisa-wound Skin No Abnormality Appearance) (Pt Warm) -Tenderness on Palpation (Lisa-wound No Skin Appearance) -Ulcer Cleansing Rinsed/ Irrigated with Saline -Foul Odor after Cleansing No -Anesthetic Used 4% Lidocaine Solution #8 r Knee -Combined with other wound No -Current Size (cm) - Length 0.7 -Current Size (cm) - Width 0.5 -Current Size (cm) - Depth 0.2 -Total Square Cm 0.35 -Photo Taken No -Tunneling No -Undermining/Tunneling No -Circular Undermining No -Exudate Amt Small -Exudate Type Serosanguineous -Wound Margin Distinct, Outline Attached -Granulation Amt Medium (34-66%) -Granulation Quality [place] -Slough/Fibrin Yes -Necrosis Amt Medium (34-66%) -Necrotic Tissue Type Adherent Slough -Structure Exposed N/A -Texture (Lisa-wound Skin Appearance) Assessed -Moisture (Lisa-wound Skin Appearance Assessed ) -Color (Lisa-wound Skin Appearance) Assessed -Temperature (Lisa-wound Skin No Abnormality Appearance) (Pt Warm) -Tenderness on Palpation (Lisa-wound No Skin Appearance) -Ulcer Cleansing Rinsed/ Irrigated with Saline -Foul Odor after Cleansing No -Anesthetic Used 4% Lidocaine Solution #6 L Post -Combined with other wound No -Current Size (cm) - Length 21.5 -Current Size (cm) - Width 1.8 -Current Size (cm) - Depth 0.3 -Total Square Cm 38.70 -Tunneling No -Undermining/Tunneling No -Circular Undermining No -Exudate Amt Small -Exudate Type Serosanguineous -Wound Margin Distinct, Outline Attached -Granulation Amt Medium (34-66%) -Granulation Quality [place] -Slough/Fibrin Yes -Necrosis Amt Small (1-33%) -Necrotic Tissue Type Adherent Slough -Structure Exposed N/A -Texture (Lisa-wound Skin Appearance) Assessed -Moisture (Lisa-wound Skin Appearance Assessed ) -Color (Lisa-wound Skin Appearance) Assessed -Temperature (Lisa-wound Skin No Abnormality Appearance) (Pt Warm) -Tenderness on Palpation (Lisa-wound No Skin Appearance) -Ulcer Cleansing Wound Cleanser -Foul Odor after Cleansing No -Anesthetic Used 4% Lidocaine Solution #5 R Lat LE -Combined with other wound No -Current Size (cm) - Length 0.1 -Current Size (cm) - Width 0.1 -Current Size (cm) - Depth 0.3 -Total Square Cm 0.01 -Photo Taken No -Tunneling No -Undermining/Tunneling No -Circular Undermining No -Exudate Amt Small -Exudate Type Serosanguineous -Wound Margin Distinct, Outline Attached -Granulation Amt Medium (34-66%) -Granulation Quality [place] -Slough/Fibrin Yes -Necrosis Amt Small (1-33%) -Necrotic Tissue Type Adherent Slough -Structure Exposed N/A -Texture (Lisa-wound Skin Appearance) Assessed -Moisture (Lisa-wound Skin Appearance Assessed ) Dry/Scaly -Color (Lisa-wound Skin Appearance) Assessed -Temperature (Lisa-wound Skin No Abnormality Appearance) (Pt Warm) -Tenderness on Palpation (Lisa-wound No Skin Appearance) -Ulcer Cleansing Wound Cleanser -Foul Odor after Cleansing No -Anesthetic Used 4% Lidocaine Solution #4 R post LE -Combined with other wound No -Current Size (cm) - Length 0.8 -Current Size (cm) - Width 2.5 -Current Size (cm) - Depth 0.2 -Total Square Cm 2.00 -Tunneling No -Undermining/Tunneling No -Circular Undermining No -Exudate Amt Small -Exudate Type Serosanguineous -Wound Margin Distinct, Outline Attached -Granulation Amt Medium (34-66%) -Granulation Quality [place] -Slough/Fibrin Yes -Necrosis Amt Medium (34-66%) -Necrotic Tissue Type Adherent Slough -Structure Exposed N/A -Texture (Lisa-wound Skin Appearance) Assessed -Moisture (Lisa-wound Skin Appearance Dry/Scaly ) -Color (Lisa-wound Skin Appearance) Assessed -Temperature (Lisa-wound Skin No Abnormality Appearance) (Pt Warm) -Tenderness on Palpation (Lisa-wound No Skin Appearance) -Ulcer Cleansing Wound Cleanser -Foul Odor after Cleansing No -Anesthetic Used 4% Lidocaine Solution #3 R Med LE -Combined with other wound No -Current Size (cm) - Length 0.1 -Current Size (cm) - Width 0.1 -Current Size (cm) - Depth 0.1 -Total Square Cm 0.01 -Tunneling No -Undermining/Tunneling No -Circular Undermining No -Exudate Amt Small -Exudate Type Serosanguineous -Wound Margin Distinct, Outline Attached -Granulation Amt Medium (34-66%) -Granulation Quality [place] -Slough/Fibrin Yes -Necrosis Amt Medium (34-66%) -Necrotic Tissue Type Adherent Slough -Structure Exposed N/A -Texture (Lisa-wound Skin Appearance) Assessed -Moisture (Lisa-wound Skin Appearance Assessed ) -Color (Lisa-wound Skin Appearance) Assessed -Temperature (Lisa-wound Skin No Abnormality Appearance) (Pt Warm) -Tenderness on Palpation (Lisa-wound No Skin Appearance) -Ulcer Cleansing Wound Cleanser -Foul Odor after Cleansing No -Anesthetic Used 4% Lidocaine Solution #2 R [place] Cluster -Combined with other wound No -Current Size (cm) - Length 10.5 -Current Size (cm) - Width 2.5 -Current Size (cm) - Depth 0.2 -Total Square Cm 26.25 -Tunneling No -Undermining/Tunneling No -Circular Undermining No -Exudate Amt Small -Exudate Type Serosanguineous -Wound Margin Distinct, Outline Attached -Granulation Amt Medium (34-66%) -Granulation Quality [place] -Slough/Fibrin Yes -Necrosis Amt Medium (34-66%) -Necrotic Tissue Type Adherent Slough -Structure Exposed N/A -Texture (Lisa-wound Skin Appearance) Assessed -Moisture (Lisa-wound Skin Appearance Dry/Scaly ) -Color (Lisa-wound Skin Appearance) Assessed -Temperature (Lisa-wound Skin No Abnormality Appearance) (Pt Warm) -Tenderness on Palpation (Lisa-wound No Skin Appearance) -Ulcer Cleansing Wound Cleanser -Foul Odor after Cleansing No -Anesthetic Used 4% Lidocaine Solution #1 R 2nd toe amp -Combined with other wound No -Current Size (cm) - Length 1.5 -Current Size (cm) - Width 0.4 -Current Size (cm) - Depth 0.3 -Total Square Cm 0.60 -Tunneling No -Undermining/Tunneling No -Circular Undermining No -Exudate Amt Small -Exudate Type Serosanguineous -Wound Margin Distinct, Outline Attached -Granulation Amt Medium (34-66%) -Granulation Quality [place] -Necrosis Amt Medium (34-66%) -Necrotic Tissue Type Adherent Slough -Structure Exposed N/A -Texture (Lisa-wound Skin Appearance) Assessed -Moisture (Lisa-wound Skin Appearance Assessed ) -Color (Lisa-wound Skin Appearance) Assessed -Temperature (Lisa-wound Skin No Abnormality Appearance) (Pt Warm) -Tenderness on Palpation (Lisa-wound No Skin Appearance) -Ulcer Cleansing Wound Cleanser -Foul Odor after Cleansing No -Anesthetic Used 5% Lidocaine Gel [Edema Assessment] -Lower Limb Edema Present No -Right Calf (cm) 34.0 -Right Ankle (cm) 23.0 -Left Calf (cm) 34.5 -Left Ankle (cm) 23.5 WC - Nurse 2 - General Ulcer CM Notes Start: 03/29/19 08:16 Freq: Status: Active Protocol: Activity Type Activity Date Activity User E-Sign Co-Sign Detail Recorded Client Recorded Date Recorded By Document 03/29/19 08:57 AN [id number] 03/29/19 09:05 AN 03/29/19 08:57 Wound Center Nurse 2 [Procedure/Treatment] #12 left plantar -Time 08:58 -Correct Patient Yes -Correct Side, Site, Position Yes -Correct Procedure Yes -Procedure Performed Yes -Type of Procedure Debridement -Clinical Debridement Subcutaneous -Post Debridement Size (cm) - Length 0.2 -Post Debridement Size (cm) - Width 0.2 -Post Debridement Size (cm) - Depth 0.1 -Total Square Cm 0.04 #11 RIGHT MEDIAL FOOT -Time 08:58 -Correct Patient Yes -Correct Side, Site, Position Yes -Correct Procedure Yes -Procedure Performed Yes -Type of Procedure Debridement -Clinical Debridement Subcutaneous -Post Debridement Size (cm) - Length 13.1 -Post Debridement Size (cm) - Width 0.3 -Post Debridement Size (cm) - Depth 0.4 -Total Square Cm 3.93 -Wound/Ulcer Outcome Not Healed -Ulcer Cleansing Rinsed/ Irrigated with Saline -Foul Odor after Cleansing No -Bioengineered Tissue No -Bleeding Controlled with Pressure -Offloading No -Treatment Response Procedure Tolerated Well #6 L Post -Time 08:59 -Correct Patient Yes -Correct Side, Site, Position Yes -Correct Procedure Yes -Procedure Performed Yes -Type of Procedure Debridement -Clinical Debridement Subcutaneous -Post Debridement Size (cm) - Length 21.6 -Post Debridement Size (cm) - Width 1.9 -Post Debridement Size (cm) - Depth 0.3 -Total Square Cm 41.04 -Wound/Ulcer Outcome Not Healed -Ulcer Cleansing Rinsed/ Irrigated with Saline -Foul Odor after Cleansing No -Bioengineered Tissue No -Bleeding Controlled with Pressure -Offloading No -Treatment Response Procedure Tolerated Well #5 R Lat LE -Time 08:59 -Correct Patient Yes -Correct Side, Site, Position Yes -Correct Procedure Yes -Procedure Performed Yes -Type of Procedure Debridement -Clinical Debridement Subcutaneous -Post Debridement Size (cm) - Length 0.2 -Post Debridement Size (cm) - Width 0.2 -Post Debridement Size (cm) - Depth 0.3 -Total Square Cm 0.04 -Wound/Ulcer Outcome Not Healed -Foul Odor after Cleansing No -Bioengineered Tissue No -Bleeding Controlled with Pressure -Offloading No -Treatment Response Procedure Tolerated Well #4 R post LE -Time 09:00 -Correct Patient Yes -Correct Side, Site, Position Yes -Correct Procedure Yes -Procedure Performed Yes -Type of Procedure Debridement -Clinical Debridement Subcutaneous -Post Debridement Size (cm) - Length 0.9 -Post Debridement Size (cm) - Width 2.6 -Post Debridement Size (cm) - Depth 0.2 -Total Square Cm 2.34 -Wound/Ulcer Outcome Not Healed -Ulcer Cleansing Rinsed/ Irrigated with Saline -Foul Odor after Cleansing No -Bioengineered Tissue No -Bleeding Controlled with Pressure -Offloading No -Treatment Response Procedure Tolerated Well #3 R Med LE -Time 09:00 -Correct Patient Yes -Correct Side, Site, Position Yes -Correct Procedure Yes -Procedure Performed Yes -Type of Procedure Debridement -Clinical Debridement Subcutaneous -Post Debridement Size (cm) - Length 0.2 -Post Debridement Size (cm) - Width 0.2 -Post Debridement Size (cm) - Depth 0.1 -Total Square Cm 0.04 -Wound/Ulcer Outcome Not Healed -Ulcer Cleansing Rinsed/ Irrigated with Saline -Foul Odor after Cleansing No -Bioengineered Tissue No -Bleeding Controlled with Pressure -Offloading No -Treatment Response Procedure Tolerated Well #2 R [place] Cluster -Time 09:00 -Correct Patient Yes -Correct Side, Site, Position Yes -Correct Procedure Yes -Procedure Performed Yes -Type of Procedure Debridement -Clinical Debridement Subcutaneous -Post Debridement Size (cm) - Length 10.6 -Post Debridement Size (cm) - Width 2.6 -Post Debridement Size (cm) - Depth 0.2 -Total Square Cm 27.56 -Wound/Ulcer Outcome Not Healed -Ulcer Cleansing Rinsed/ Irrigated with Saline -Foul Odor after Cleansing No -Bioengineered Tissue No -Bleeding Controlled with Pressure -Offloading No -Treatment Response Procedure Tolerated Well #1 R 2nd toe amp -Time 09:01 -Correct Patient Yes -Correct Side, Site, Position Yes -Correct Procedure Yes -Procedure Performed Yes -Type of Procedure Debridement -Clinical Debridement Subcutaneous -Post Debridement Size (cm) - Length 1.6 -Post Debridement Size (cm) - Width 0.5 -Post Debridement Size (cm) - Depth 0.3 -Total Square Cm 0.80 -Wound/Ulcer Outcome Not Healed -Ulcer Cleansing Rinsed/ Irrigated with Saline -Foul Odor after Cleansing No -Bioengineered Tissue No -Bleeding Controlled with Pressure -Offloading No -Treatment Response Procedure Tolerated Well [See Physician Procedure note for Specifics] Pain Scale: 0-10 Numeric [Pain] -Is Patient Pain Free? Yes Musculoskeletal: No Tenderness to Palpation of Joints or Extremities, Muscle Wasting, - - Compartments soft bilateral lower extremities Neurological: - - Lack of normal epicritic sensation light touch bilateral lower extremities Psych/Mental Status: Normal Affect, Appropriate Debridement Note Post-Debridement Measurements/Treatment WC - Nurse 2 - General Ulcer CM Notes Start: 03/29/19 08:16 Freq: Status: Active Protocol: Activity Type Activity Date Activity User E-Sign Co-Sign Detail Recorded Client Recorded Date Recorded By Document 03/29/19 08:57 AN [id number] 03/29/19 09:05 AN 03/29/19 08:57 Wound Center Nurse 2 #12 left plantar -Time 08:58 -Correct Patient Yes -Correct Side, Site, Position Yes -Correct Procedure Yes -Procedure Performed Yes -Type of Procedure Debridement -Clinical Debridement Subcutaneous -Post Debridement Size (cm) - Length 0.2 -Post Debridement Size (cm) - Width 0.2 -Post Debridement Size (cm) - Depth 0.1 -Total Square Cm 0.04 #11 RIGHT MEDIAL FOOT -Time 08:58 -Correct Patient Yes -Correct Side, Site, Position Yes -Correct Procedure Yes -Procedure Performed Yes -Type of Procedure Debridement -Clinical Debridement Subcutaneous -Post Debridement Size (cm) - Length 13.1 -Post Debridement Size (cm) - Width 0.3 -Post Debridement Size (cm) - Depth 0.4 -Total Square Cm 3.93 -Wound/Ulcer Outcome Not Healed -Ulcer Cleansing Rinsed/ Irrigated with Saline -Foul Odor after Cleansing No -Bioengineered Tissue No -Bleeding Controlled with Pressure -Offloading No -Treatment Response Procedure Tolerated Well #6 L Post -Time 08:59 -Correct Patient Yes -Correct Side, Site, Position Yes -Correct Procedure Yes -Procedure Performed Yes -Type of Procedure Debridement -Clinical Debridement Subcutaneous -Post Debridement Size (cm) - Length 21.6 -Post Debridement Size (cm) - Width 1.9 -Post Debridement Size (cm) - Depth 0.3 -Total Square Cm 41.04 -Wound/Ulcer Outcome Not Healed -Ulcer Cleansing Rinsed/ Irrigated with Saline -Foul Odor after Cleansing No -Bioengineered Tissue No -Bleeding Controlled with Pressure -Offloading No -Treatment Response Procedure Tolerated Well #5 R Lat LE -Time 08:59 -Correct Patient Yes -Correct Side, Site, Position Yes -Correct Procedure Yes -Procedure Performed Yes -Type of Procedure Debridement -Clinical Debridement Subcutaneous -Post Debridement Size (cm) - Length 0.2 -Post Debridement Size (cm) - Width 0.2 -Post Debridement Size (cm) - Depth 0.3 -Total Square Cm 0.04 -Wound/Ulcer Outcome Not Healed -Foul Odor after Cleansing No -Bioengineered Tissue No -Bleeding Controlled with Pressure -Offloading No -Treatment Response Procedure Tolerated Well #4 R post LE -Time 09:00 -Correct Patient Yes -Correct Side, Site, Position Yes -Correct Procedure Yes -Procedure Performed Yes -Type of Procedure Debridement -Clinical Debridement Subcutaneous -Post Debridement Size (cm) - Length 0.9 -Post Debridement Size (cm) - Width 2.6 -Post Debridement Size (cm) - Depth 0.2 -Total Square Cm 2.34 -Wound/Ulcer Outcome Not Healed -Ulcer Cleansing Rinsed/ Irrigated with Saline -Foul Odor after Cleansing No -Bioengineered Tissue No -Bleeding Controlled with Pressure -Offloading No -Treatment Response Procedure Tolerated Well #3 R Med LE -Time 09:00 -Correct Patient Yes -Correct Side, Site, Position Yes -Correct Procedure Yes -Procedure Performed Yes -Type of Procedure Debridement -Clinical Debridement Subcutaneous -Post Debridement Size (cm) - Length 0.2 -Post Debridement Size (cm) - Width 0.2 -Post Debridement Size (cm) - Depth 0.1 -Total Square Cm 0.04 -Wound/Ulcer Outcome Not Healed -Ulcer Cleansing Rinsed/ Irrigated with Saline -Foul Odor after Cleansing No -Bioengineered Tissue No -Bleeding Controlled with Pressure -Offloading No -Treatment Response Procedure Tolerated Well #2 R [place] Cluster -Time 09:00 -Correct Patient Yes -Correct Side, Site, Position Yes -Correct Procedure Yes -Procedure Performed Yes -Type of Procedure Debridement -Clinical Debridement Subcutaneous -Post Debridement Size (cm) - Length 10.6 -Post Debridement Size (cm) - Width 2.6 -Post Debridement Size (cm) - Depth 0.2 -Total Square Cm 27.56 -Wound/Ulcer Outcome Not Healed -Ulcer Cleansing Rinsed/ Irrigated with Saline -Foul Odor after Cleansing No -Bioengineered Tissue No -Bleeding Controlled with Pressure -Offloading No -Treatment Response Procedure Tolerated Well #1 R 2nd toe amp -Time 09:01 -Correct Patient Yes -Correct Side, Site, Position Yes -Correct Procedure Yes -Procedure Performed Yes -Type of Procedure Debridement -Clinical Debridement Subcutaneous -Post Debridement Size (cm) - Length 1.6 -Post Debridement Size (cm) - Width 0.5 -Post Debridement Size (cm) - Depth 0.3 -Total Square Cm 0.80 -Wound/Ulcer Outcome Not Healed -Ulcer Cleansing Rinsed/ Irrigated with Saline -Foul Odor after Cleansing No -Bioengineered Tissue No -Bleeding Controlled with Pressure -Offloading No -Treatment Response Procedure Tolerated Well Pain Scale: 0-10 Numeric Is Patient Pain Free? Yes Wound debrided: medial leg Laterality: Right Wound Grade/Stage: grade 1 Type of Debridement: Excisional debridement Anesthesia Used: 5% Lidocaine Gel Depth: in the subcutaneous layer Percentage of wound debrided: 100 Instrument Used: #15 blade Tissue Removed: fibrous, devitalized subcutaneous, biofilm, slough Severity: Fat Layer Exposed Amount of bleeding with debridement: Mild Bleeding Controlled with: Pressure Patient tolerated procedure well - Additional Wound Wound debrided: lateral leg Laterality: Right Wound Grade/Stage: grade 1 Type of Debridement: Excisional debridement Anesthesia Used: 5% Lidocaine Gel Depth: in the subcutaneous layer Percentage of wound debrided: 100 Instrument Used: #15 blade Tissue Removed: fibrous, devitalized subcutaneous, biofilm, slough Severity: Fat Layer Exposed Amount of bleeding with debridement: Mild Bleeding Controlled with: Pressure Patient tolerated procedure: Patient tolerated procedure well - Additional Wound Wound debrided: anterior leg Laterality: Right Wound Grade/Stage: grade 1 Type of Debridement: Excisional debridement Anesthesia Used: 4% Lidocaine Solution Depth: in the subcutaneous layer Percentage of wound debrided: 100 Instrument Used: #15 blade Tissue Removed: fibrous, devitalized subcutaneous, biofilm, slough Severity: Fat Layer Exposed Amount of bleeding with debridement: Mild Bleeding Controlled with: Pressure Patient tolerated procedure: Patient tolerated procedure well - Additional Wound Wound debrided: posterior leg Laterality: Right Wound Grade/Stage: grade 2 Type of Debridement: Excisional debridement Depth: in the subcutaneous layer Percentage of wound debrided: 100 Instrument Used: #15 blade Tissue Removed: fibrous, devitalized subcutaneous, biofilm, slough Severity: Fat Layer Exposed Amount of bleeding with debridement: Mild Bleeding Controlled with: Pressure Patient tolerated procedure: Patient tolerated procedure well - Additional Wound Wound debrided: forefoot Laterality: Right Wound Grade/Stage: grade 3 Type of Debridement: Excisional debridement Anesthesia Used: 5% Lidocaine Gel Depth: in the subcutaneous layer Percentage of wound debrided: 100 Instrument Used: #15 blade Tissue Removed: fibrous, devitalized subcutaneous, biofilm, slough Severity: Fat Layer Exposed Amount of bleeding with debridement: Mild Bleeding Controlled with: Pressure Patient tolerated procedure: Patient tolerated procedure well - Additional Wound Wound debrided: medial foot Laterality: Right Wound Grade/Stage: grade 3 Type of Debridement: Excisional debridement Anesthesia Used: 5% Lidocaine Gel Depth: in the subcutaneous layer Percentage of wound debrided: 100 Instrument Used: #15 blade Tissue Removed: fibrous, devitalized subcutaneous, biofilm, slough Severity: Fat Layer Exposed Amount of bleeding with debridement: Mild Bleeding Controlled with: Pressure Patient tolerated procedure: Patient tolerated procedure well - Additional Wound Wound debrided: posterior leg Laterality: Left Wound Grade/Stage: grade 2 Type of Debridement: Excisional debridement Anesthesia Used: 5% Lidocaine Gel Depth: in the subcutaneous layer Percentage of wound debrided: 100 Instrument Used: #15 blade Tissue Removed: fibrous, devitalized subcutaneous, biofilm, slough Severity: Fat Layer Exposed Amount of bleeding with debridement: Mild Bleeding Controlled with: Pressure Patient tolerated procedure: Patient tolerated procedure well Assessment/Plan Assessment: Open second and third ray resection secondary to 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 Diabetic neuropathy. Malnutrition suspected. 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 Delayed healing. Gait impairment and fall risk. Other comorbidities, right knee ulcer Plan: I reviewed and discussed his case today. He was reassured no infections are noted. Debridement done as documented above in the nursing clinical panel. Procedure was well-tolerated. Continue hydrogel and Adaptic; to change daily due to the reported dryness. His continued tendon exposure to the posterior bilateral legs is noted in the gave him a prescription for an offloading donut pillow. He relates he has been using this. He understands he may need to also prop his heels up on a pillow as long as is not causing any new pressure changes to those sites. Elevate lower extremities when seated and in bed. Continue increased protein intake. I recommend he avoids laying directly on his wounds to reduce pressure, and I was concerned about his perfusion to his limbs. He had an arterial Doppler scheduled with Dr. Morgan's staff on August 02, 2018 and overall perfusion was confirmed; additional intervention or workup was not recommended. It is also noted that he did have venous Doppler performed with reflux evaluation. He did not have evidence of deep venous thrombosis or venous insufficiency at that time; the vessels were compressible. To continue with nutritional supplementation optimize healing; I recommend Juan. I recommend he sustained from smoking and alcohol activities to optimize healing as well. His workup for vasculitis and underlying autoimmune disorder is also pending. A punch biopsy was sent during his last surgical intervention on June 10 and this demonstrated inflammatory changes without malignancy. He had initial screening labs and so far he has a negative RA titer, HL of the 27, KEVIN, anti-CCP, and rheumatoid factor. Several his antibody screenings were not reportable. Hyperbaric oxygen therapy was recommended and it is noted his ejection fraction was most recently 50%. He refuses at this time. Dr. Gilbert continues to manage his right knee ulcer including debridements and traditional wound care plan. He refuses surgical intervention at this time to bilateral lower extremities. I answered all of his questions. Additional amputation of the right foot is not planned due to his fairly nonambulatory status. Smoking cessation was strongly recommended and is imperative to optimize healing. He reports he is cutting back. I recommend further follow-up at the wound care center 2 week with me, or call sooner if he has any questions. Compliance at this advanced wound care center was reviewed. He understands additional palliative care programs are an option if he does not wish to proceed with advanced wound care opportunities that has been recommended. 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
[2019-04-12 08:10] VITALS: BP 128/86; PULSE 84; RESP 18; TEMP 36.3
--- NOTE | 2019-04-12 08:43 | PCM.WC.PN ---
(1) Skin ulcer of right knee with fat layer exposed Status: Chronic Current Visit: No Code(s): L97.812 - Non-pressure chronic ulcer of other part of right lower leg with fat layer exposed (2) Skin ulcer of left knee with fat layer exposed Status: Chronic Current Visit: No Code(s): L97.822 - Non-pressure chronic ulcer of other part of left lower leg with fat layer exposed Type of Wound Chief Complaint: right and left Leg ulcers and right and left foot ulcers History of Wound: Mr. Arguello is a 64-year-old male with multiple comorbidities follows up for delayed healing ulcers to the right and left foot as well as bilateral legs. It is noted he previously had widespread debridements and fasciotomies performed to bilateral lower extremities secondary to life-threatening and limb threatening infection; this was previously performed at [facility]. He continues to follow with Dr. Gilbert for his right knee ulcer. He denies chills, fever or otherwise feeling of unwell. He presents today with his . He still refuses advanced wound care product application. He refuses hyperbaric oxygen therapy treatment. He elects to proceed with a palliative care plan because he is refusing the other treatment recommendations. He is with his today. He is trying to keep pressure off this ulcer sites. Progress of Wound: Stable right knee. - Physical Exam Vital Signs Temp Pulse Resp BP 97.3 F L 84 18 128/86 H 04/12/19 08:10 04/12/19 08:10 04/12/19 08:10 04/12/19 08:10 General: Alert, Oriented x3, Cooperative, No apparent distress HEENT: Atraumatic, Normocephalic Oral: Moist Mucosa Neck: Supple Lungs: Normal air movement Extremities: No cyanosis Skin: Ulcer/ Wound Wound Measurements and Assessment WC - Nurse 1 - General Ulcer Measurement Start: 03/29/19 08:16 Freq: Status: Active Protocol: Activity Type Activity Date Activity User E-Sign Co-Sign Detail Recorded Client Recorded Date Recorded By Document 04/12/19 08:10 DL [id number] 04/12/19 08:29 DL 04/12/19 08:10 Wound Center Nurse 1 [Ulcer Assessment] #11 RIGHT MEDIAL FOOT -Current Size (cm) - Length 12 -Current Size (cm) - Width 1.5 -Current Size (cm) - Depth 0.2 -Total Square Cm 18.0 -Photo Taken No -Exudate Amt Small -Exudate Type Yellow/Green -Wound Margin Thickened -Granulation Amt Medium (34-66%) -Granulation Quality Red -Necrosis Amt Medium (34-66%) -Necrotic Tissue Type Adherent Slough -Structure Exposed N/A -Texture (Lisa-wound Skin Appearance) Scarring -Moisture (Lisa-wound Skin Appearance Dry/Scaly ) -Color (Lisa-wound Skin Appearance) Hemosiderin Staining -Temperature (Lisa-wound Skin No Abnormality Appearance) (Pt Warm) -Tenderness on Palpation (Lisa-wound No Skin Appearance) -Ulcer Cleansing Wound Cleanser -Foul Odor after Cleansing No -Anesthetic Used 4% Lidocaine Solution #8 r Knee -Current Size (cm) - Length 0.7 -Current Size (cm) - Width 0.6 -Current Size (cm) - Depth 0.2 -Total Square Cm 0.42 -Photo Taken No -Exudate Amt None Present -Wound Margin Distinct, Outline Attached -Granulation Amt Large (67-100%) -Granulation Quality [place] -Necrosis Amt None Present (0 %) -Structure Exposed N/A -Texture (Lisa-wound Skin Appearance) Scarring -Moisture (Lisa-wound Skin Appearance Dry/Scaly ) -Color (Lisa-wound Skin Appearance) Hemosiderin Staining -Temperature (Lisa-wound Skin No Abnormality Appearance) (Pt Warm) -Tenderness on Palpation (Lisa-wound No Skin Appearance) -Ulcer Cleansing Wound Cleanser -Foul Odor after Cleansing No -Anesthetic Used 4% Lidocaine Solution #6 L Post -Current Size (cm) - Length 14.5 -Current Size (cm) - Width 1.8 -Current Size (cm) - Depth 0.4 -Total Square Cm 26.10 -Photo Taken No -Exudate Amt Small -Exudate Type Yellow/Green -Wound Margin Distinct, Outline Attached -Granulation Amt Small (1-33%) -Granulation Quality [place] -Necrosis Amt Large (67-100%) -Necrotic Tissue Type Adherent Slough -Structure Exposed N/A -Texture (Lisa-wound Skin Appearance) Scarring -Moisture (Lisa-wound Skin Appearance Dry/Scaly ) -Color (Lisa-wound Skin Appearance) Hemosiderin Staining -Temperature (Lisa-wound Skin No Abnormality Appearance) (Pt Warm) -Tenderness on Palpation (Lisa-wound No Skin Appearance) -Ulcer Cleansing Wound Cleanser -Foul Odor after Cleansing No -Anesthetic Used 4% Lidocaine Solution #5 R Lat LE -Current Size (cm) - Length 1.5 -Current Size (cm) - Width 1.4 -Current Size (cm) - Depth 0.2 -Total Square Cm 2.10 -Photo Taken No -Exudate Amt Small -Exudate Type Yellow/Green -Wound Margin Distinct, Outline Attached -Granulation Amt Medium (34-66%) -Granulation Quality [place] Red -Necrosis Amt Medium (34-66%) -Necrotic Tissue Type Adherent Slough -Structure Exposed N/A -Texture (Lisa-wound Skin Appearance) Scarring -Moisture (Lisa-wound Skin Appearance Dry/Scaly ) -Color (Lisa-wound Skin Appearance) Hemosiderin Staining -Temperature (Lisa-wound Skin No Abnormality Appearance) (Pt Warm) -Tenderness on Palpation (Lisa-wound No Skin Appearance) -Ulcer Cleansing Wound Cleanser -Foul Odor after Cleansing No -Anesthetic Used 4% Lidocaine Solution #4 R post LE -Current Size (cm) - Length 3.6 -Current Size (cm) - Width 2.1 -Current Size (cm) - Depth 0.5 -Total Square Cm 7.56 -Photo Taken No -Exudate Amt Small -Exudate Type Yellow/Green -Wound Margin Distinct, Outline Attached -Granulation Amt Medium (34-66%) -Granulation Quality Red -Necrosis Amt Medium (34-66%) -Necrotic Tissue Type Adherent Slough -Structure Exposed N/A -Texture (Lisa-wound Skin Appearance) Scarring -Moisture (Lisa-wound Skin Appearance Dry/Scaly ) -Color (Lisa-wound Skin Appearance) Hemosiderin Staining -Temperature (Lisa-wound Skin No Abnormality Appearance) (Pt Warm) -Tenderness on Palpation (Lisa-wound No Skin Appearance) -Ulcer Cleansing Wound Cleanser -Foul Odor after Cleansing No -Anesthetic Used 4% Lidocaine Solution #3 R Med LE -Current Size (cm) - Length 0.1 -Current Size (cm) - Width 0.1 -Current Size (cm) - Depth 0.1 -Total Square Cm 0.01 -Photo Taken No -Exudate Amt None Present -Exudate Type Yellow/Green -Wound Margin Distinct, Outline Attached -Granulation Amt None Present (0 %) -Granulation Quality [place] -Necrosis Amt Large (67-100%) -Necrotic Tissue Type Eschar -Structure Exposed N/A -Texture (Lisa-wound Skin Appearance) Scarring -Moisture (Lisa-wound Skin Appearance Dry/Scaly ) -Color (Lisa-wound Skin Appearance) Hemosiderin Staining -Temperature (Lisa-wound Skin No Abnormality Appearance) (Pt Warm) -Tenderness on Palpation (Lisa-wound No Skin Appearance) -Ulcer Cleansing Wound Cleanser -Foul Odor after Cleansing No -Anesthetic Used 4% Lidocaine Solution #2 R [place] Cluster -Current Size (cm) - Length 9.9 -Current Size (cm) - Width 1.5 -Current Size (cm) - Depth 0.2 -Total Square Cm 14.85 -Photo Taken No -Exudate Amt Small -Exudate Type Serosanguineous -Wound Margin Thickened -Granulation Amt Medium (34-66%) -Granulation Quality Red -Necrosis Amt Medium (34-66%) -Necrotic Tissue Type Adherent Slough -Structure Exposed N/A -Texture (Lisa-wound Skin Appearance) Scarring -Moisture (Lisa-wound Skin Appearance Dry/Scaly ) -Color (Lisa-wound Skin Appearance) Hemosiderin Staining -Temperature (Lisa-wound Skin No Abnormality Appearance) (Pt Warm) -Tenderness on Palpation (Lisa-wound No Skin Appearance) -Ulcer Cleansing Wound Cleanser -Foul Odor after Cleansing No -Anesthetic Used 4% Lidocaine Solution #1 R 2nd toe amp -Current Size (cm) - Length 1.3 -Current Size (cm) - Width 0.2 -Current Size (cm) - Depth 0.5 -Total Square Cm 0.26 -Photo Taken No -Exudate Amt Small -Exudate Type Serosanguineous -Wound Margin Thickened -Granulation Amt Small (1-33%) -Granulation Quality Red -Necrosis Amt Small (1-33%) -Necrotic Tissue Type Adherent Slough -Structure Exposed N/A -Texture (Lisa-wound Skin Appearance) Scarring -Moisture (Lisa-wound Skin Appearance Dry/Scaly ) -Color (Lisa-wound Skin Appearance) No Abnormality -Temperature (Lisa-wound Skin No Abnormality Appearance) (Pt Warm) -Tenderness on Palpation (Lisa-wound No Skin Appearance) -Ulcer Cleansing Wound Cleanser -Foul Odor after Cleansing No -Anesthetic Used 4% Lidocaine Solution [Edema Assessment] -Right Calf (cm) 35.4 -Right Ankle (cm) 20.7 -Left Calf (cm) 34.5 -Left Ankle (cm) 20.8 - Nurse 2 - General Ulcer CM Notes Start: 03/29/19 08:16 Freq: Status: Active Protocol: Activity Type Activity Date Activity User E-Sign Co-Sign Detail Recorded Client Recorded Date Recorded By Document 04/12/19 08:38 MW [id number] 04/12/19 08:40 MW 04/12/19 08:38 Wound Center Nurse 2 [Procedure/Treatment] #8 r Knee -Time 08:38 -Correct Patient Yes -Correct Side, Site, Position Yes -Correct Procedure Yes -Procedure Performed Yes -Type of Procedure Debridement -Clinical Debridement Subcutaneous -Post Debridement Size (cm) - Length 0.4 -Post Debridement Size (cm) - Width 0.1 -Post Debridement Size (cm) - Depth 0.2 -Total Square Cm 0.04 -Wound/Ulcer Outcome Not Healed -Ulcer Cleansing Rinsed/ Irrigated with Saline -Foul Odor after Cleansing No -Bioengineered Tissue No -Bleeding Controlled with Pressure -Offloading No -Treatment Response Procedure Tolerated Well [See Physician Procedure note for Specifics] Musculoskeletal: No Muscle Wasting Neurological: Cranial nerves II-XII grossly intact Psych/Mental Status: Normal Affect Debridement Note Post-Debridement Measurements/Treatment - Nurse 2 - General Ulcer CM Notes Start: 03/29/19 08:16 Freq: Status: Active Protocol: Activity Type Activity Date Activity User E-Sign Co-Sign Detail Recorded Client Recorded Date Recorded By Document 03/29/19 08:57 AN [id number] 03/29/19 09:05 AN Document 03/29/19 14:27 MW [id number] 03/29/19 14:29 MW Document 04/12/19 08:38 MW [id number] 04/12/19 08:40 MW 03/29/19 03/29/19 04/12/19 08:57 14:27 08:38 Wound Center Nurse 2 #12 left plantar -Time 08:58 -Correct Patient Yes -Correct Side, Site, Position Yes -Correct Procedure Yes -Procedure Performed Yes -Type of Procedure Debridement -Clinical Debridement Subcutaneous -Post Debridement Size (cm) - Length 0.2 -Post Debridement Size (cm) - Width 0.2 -Post Debridement Size (cm) - Depth 0.1 -Total Square Cm 0.04 #11 RIGHT MEDIAL FOOT -Time 08:58 -Correct Patient Yes -Correct Side, Site, Position Yes -Correct Procedure Yes -Procedure Performed Yes -Type of Procedure Debridement -Clinical Debridement Subcutaneous -Post Debridement Size (cm) - Length 13.1 -Post Debridement Size (cm) - Width 0.3 -Post Debridement Size (cm) - Depth 0.4 -Total Square Cm 3.93 -Wound/Ulcer Outcome Not Healed -Ulcer Cleansing Rinsed/ Irrigated with Saline -Foul Odor after Cleansing No -Bioengineered Tissue No -Bleeding Controlled with Pressure -Offloading No -Treatment Response Procedure Tolerated Well #8 r Knee -Time 09:30 08:38 -Correct Patient Yes Yes -Correct Side, Site, Position Yes Yes -Correct Procedure Yes Yes -Procedure Performed Yes Yes -Type of Procedure Debridement Debridement -Clinical Debridement Subcutaneous Subcutaneous -Post Debridement Size (cm) - Length 0.5 0.4 -Post Debridement Size (cm) - Width 0.2 0.1 -Post Debridement Size (cm) - Depth 0.2 0.2 -Total Square Cm 0.10 0.04 -Wound/Ulcer Outcome Not Healed Not Healed -Ulcer Cleansing Rinsed/ Irrigated with Saline -Foul Odor after Cleansing No -Bioengineered Tissue No -Bleeding Controlled with Pressure -Offloading No -Treatment Response Procedure Tolerated Well #6 L Post -Time 08:59 -Correct Patient Yes -Correct Side, Site, Position Yes -Correct Procedure Yes -Procedure Performed Yes -Type of Procedure Debridement -Clinical Debridement Subcutaneous -Post Debridement Size (cm) - Length 21.6 -Post Debridement Size (cm) - Width 1.9 -Post Debridement Size (cm) - Depth 0.3 -Total Square Cm 41.04 -Wound/Ulcer Outcome Not Healed -Ulcer Cleansing Rinsed/ Irrigated with Saline -Foul Odor after Cleansing No -Bioengineered Tissue No -Bleeding Controlled with Pressure -Offloading No -Treatment Response Procedure Tolerated Well #5 R Lat LE -Time 08:59 -Correct Patient Yes -Correct Side, Site, Position Yes -Correct Procedure Yes -Procedure Performed Yes -Type of Procedure Debridement -Clinical Debridement Subcutaneous -Post Debridement Size (cm) - Length 0.2 -Post Debridement Size (cm) - Width 0.2 -Post Debridement Size (cm) - Depth 0.3 -Total Square Cm 0.04 -Wound/Ulcer Outcome Not Healed -Foul Odor after Cleansing No -Bioengineered Tissue No -Bleeding Controlled with Pressure -Offloading No -Treatment Response Procedure Tolerated Well #4 R post LE -Time 09:00 -Correct Patient Yes -Correct Side, Site, Position Yes -Correct Procedure Yes -Procedure Performed Yes -Type of Procedure Debridement -Clinical Debridement Subcutaneous -Post Debridement Size (cm) - Length 0.9 -Post Debridement Size (cm) - Width 2.6 -Post Debridement Size (cm) - Depth 0.2 -Total Square Cm 2.34 -Wound/Ulcer Outcome Not Healed -Ulcer Cleansing Rinsed/ Irrigated with Saline -Foul Odor after Cleansing No -Bioengineered Tissue No -Bleeding Controlled with Pressure -Offloading No -Treatment Response Procedure Tolerated Well #3 R Med LE -Time 09:00 -Correct Patient Yes -Correct Side, Site, Position Yes -Correct Procedure Yes -Procedure Performed Yes -Type of Procedure Debridement -Clinical Debridement Subcutaneous -Post Debridement Size (cm) - Length 0.2 -Post Debridement Size (cm) - Width 0.2 -Post Debridement Size (cm) - Depth 0.1 -Total Square Cm 0.04 -Wound/Ulcer Outcome Not Healed -Ulcer Cleansing Rinsed/ Irrigated with Saline -Foul Odor after Cleansing No -Bioengineered Tissue No -Bleeding Controlled with Pressure -Offloading No -Treatment Response Procedure Tolerated Well #2 R [place] Cluster -Time 09:00 -Correct Patient Yes -Correct Side, Site, Position Yes -Correct Procedure Yes -Procedure Performed Yes -Type of Procedure Debridement -Clinical Debridement Subcutaneous -Post Debridement Size (cm) - Length 10.6 -Post Debridement Size (cm) - Width 2.6 -Post Debridement Size (cm) - Depth 0.2 -Total Square Cm 27.56 -Wound/Ulcer Outcome Not Healed -Ulcer Cleansing Rinsed/ Irrigated with Saline -Foul Odor after Cleansing No -Bioengineered Tissue No -Bleeding Controlled with Pressure -Offloading No -Treatment Response Procedure Tolerated Well #1 R 2nd toe amp -Time 09:01 -Correct Patient Yes -Correct Side, Site, Position Yes -Correct Procedure Yes -Procedure Performed Yes -Type of Procedure Debridement -Clinical Debridement Subcutaneous -Post Debridement Size (cm) - Length 1.6 -Post Debridement Size (cm) - Width 0.5 -Post Debridement Size (cm) - Depth 0.3 -Total Square Cm 0.80 -Wound/Ulcer Outcome Not Healed -Ulcer Cleansing Rinsed/ Irrigated with Saline -Foul Odor after Cleansing No -Bioengineered Tissue No -Bleeding Controlled with Pressure -Offloading No -Treatment Response Procedure Tolerated Well Pain Scale: 0-10 Numeric Is Patient Pain Free? 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 Diabetic neuropathy. Malnutrition suspected. 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 Delayed healing. Gait impairment and fall risk. Other comorbidities, right knee ulcer Plan: Right knee is improving. No new concerns at this time. Debridement done as documented above, procedure was well-tolerated. Continue chromogranin Adaptic over top. Change every other day. Elevate lower extremities when seated and in bed. Continue other wound care management per Dr. Gruber. Currently complex care. Follow-up in 2 weeks. This note was generated with [employer] software. It may contain incorrect words, spelling, and punctuation that were not noted in checking the note before signing.
--- NOTE | 2019-04-12 08:49 | PN.PCM_ITS ---
(1) Skin ulcer of right knee with fat layer exposed Status: Chronic Current Visit: No Code(s): L97.812 - Non-pressure chronic ulcer of other part of right lower leg with fat layer exposed (2) Skin ulcer of left knee with fat layer exposed Status: Chronic Current Visit: No Code(s): L97.822 - Non-pressure chronic ulcer of other part of left lower leg with fat layer exposed Type of Wound Chief Complaint: right and left Leg ulcers and right and left foot ulcers History of Wound: Mr. Arguello is a 64-year-old male with multiple comorbidities follows up for delayed healing ulcers to the right and left foot as well as bilateral legs. It is noted he previously had widespread debridements and fasciotomies performed to bilateral lower extremities secondary to life- threatening and limb threatening infection; this was previously performed at [facility]. He continues to follow with Dr. Gilbert for his right knee ulcer. He denies chills, fever or otherwise feeling of unwell. He presents today with his . He still refuses advanced wound care product application. He refuses hyperbaric oxygen therapy treatment. He elects to proceed with a palliative care plan because he is refusing the other treatment recommendations. He is with his today. He is trying to keep pressure off this ulcer sites. Progress of Wound: Stable right knee. - Physical Exam Vital Signs Temp Pulse Resp BP 97.3 F L 84 18 128/86 H 04/12/19 08:10 04/12/19 08:10 04/12/19 08:10 04/12/19 08:10 General: Alert, Oriented x3, Cooperative, No apparent distress HEENT: Atraumatic, Normocephalic Oral: Moist Mucosa Neck: Supple Lungs: Normal air movement Extremities: No cyanosis Skin: Ulcer/ Wound Wound Measurements and Assessment WC - Nurse 1 - General Ulcer Measurement Start: 03/29/19 08:16 Freq: Status: Active Protocol: Activity Type Activity Date Activity User E-Sign Co-Sign Detail Recorded Client Recorded Date Recorded By Document 04/12/19 08:10 DL [id number] 04/12/19 08:29 DL 04/12/19 08:10 Wound Center Nurse 1 [Ulcer Assessment] #11 RIGHT MEDIAL FOOT -Current Size (cm) - Length 12 -Current Size (cm) - Width 1.5 -Current Size (cm) - Depth 0.2 -Total Square Cm 18.0 -Photo Taken No -Exudate Amt Small -Exudate Type Yellow/Green -Wound Margin Thickened -Granulation Amt Medium (34-66%) -Granulation Quality Red -Necrosis Amt Medium (34-66%) -Necrotic Tissue Type Adherent Slough -Structure Exposed N/A -Texture (Lisa-wound Skin Appearance) Scarring -Moisture (Lisa-wound Skin Appearance Dry/Scaly ) -Color (Lisa-wound Skin Appearance) Hemosiderin Staining -Temperature (Lisa-wound Skin No Abnormality Appearance) (Pt Warm) -Tenderness on Palpation (Lisa-wound No Skin Appearance) -Ulcer Cleansing Wound Cleanser -Foul Odor after Cleansing No -Anesthetic Used 4% Lidocaine Solution #8 r Knee -Current Size (cm) - Length 0.7 -Current Size (cm) - Width 0.6 -Current Size (cm) - Depth 0.2 -Total Square Cm 0.42 -Photo Taken No -Exudate Amt None Present -Wound Margin Distinct, Outline Attached -Granulation Amt Large (67-100%) -Granulation Quality [place] -Necrosis Amt None Present (0 %) -Structure Exposed N/A -Texture (Lisa-wound Skin Appearance) Scarring -Moisture (Lisa-wound Skin Appearance Dry/Scaly ) -Color (Lisa-wound Skin Appearance) Hemosiderin Staining -Temperature (Lisa-wound Skin No Abnormality Appearance) (Pt Warm) -Tenderness on Palpation (Lisa-wound No Skin Appearance) -Ulcer Cleansing Wound Cleanser -Foul Odor after Cleansing No -Anesthetic Used 4% Lidocaine Solution #6 L Post -Current Size (cm) - Length 14.5 -Current Size (cm) - Width 1.8 -Current Size (cm) - Depth 0.4 -Total Square Cm 26.10 -Photo Taken No -Exudate Amt Small -Exudate Type Yellow/Green -Wound Margin Distinct, Outline Attached -Granulation Amt Small (1-33%) -Granulation Quality [place] -Necrosis Amt Large (67-100%) -Necrotic Tissue Type Adherent Slough -Structure Exposed N/A -Texture (Lisa-wound Skin Appearance) Scarring -Moisture (Lisa-wound Skin Appearance Dry/Scaly ) -Color (Lisa-wound Skin Appearance) Hemosiderin Staining -Temperature (Lisa-wound Skin No Abnormality Appearance) (Pt Warm) -Tenderness on Palpation (Lisa-wound No Skin Appearance) -Ulcer Cleansing Wound Cleanser -Foul Odor after Cleansing No -Anesthetic Used 4% Lidocaine Solution #5 R Lat LE -Current Size (cm) - Length 1.5 -Current Size (cm) - Width 1.4 -Current Size (cm) - Depth 0.2 -Total Square Cm 2.10 -Photo Taken No -Exudate Amt Small -Exudate Type Yellow/Green -Wound Margin Distinct, Outline Attached -Granulation Amt Medium (34-66%) -Granulation Quality [place] Red -Necrosis Amt Medium (34-66%) -Necrotic Tissue Type Adherent Slough -Structure Exposed N/A -Texture (Lisa-wound Skin Appearance) Scarring -Moisture (Lisa-wound Skin Appearance Dry/Scaly ) -Color (Lisa-wound Skin Appearance) Hemosiderin Staining -Temperature (Lisa-wound Skin No Abnormality Appearance) (Pt Warm) -Tenderness on Palpation (Lisa-wound No Skin Appearance) -Ulcer Cleansing Wound Cleanser -Foul Odor after Cleansing No -Anesthetic Used 4% Lidocaine Solution #4 R post LE -Current Size (cm) - Length 3.6 -Current Size (cm) - Width 2.1 -Current Size (cm) - Depth 0.5 -Total Square Cm 7.56 -Photo Taken No -Exudate Amt Small -Exudate Type Yellow/Green -Wound Margin Distinct, Outline Attached -Granulation Amt Medium (34-66%) -Granulation Quality Red -Necrosis Amt Medium (34-66%) -Necrotic Tissue Type Adherent Slough -Structure Exposed N/A -Texture (Lisa-wound Skin Appearance) Scarring -Moisture (Lisa-wound Skin Appearance Dry/Scaly ) -Color (Lisa-wound Skin Appearance) Hemosiderin Staining -Temperature (Lisa-wound Skin No Abnormality Appearance) (Pt Warm) -Tenderness on Palpation (Lisa-wound No Skin Appearance) -Ulcer Cleansing Wound Cleanser -Foul Odor after Cleansing No -Anesthetic Used 4% Lidocaine Solution #3 R Med LE -Current Size (cm) - Length 0.1 -Current Size (cm) - Width 0.1 -Current Size (cm) - Depth 0.1 -Total Square Cm 0.01 -Photo Taken No -Exudate Amt None Present -Exudate Type Yellow/Green -Wound Margin Distinct, Outline Attached -Granulation Amt None Present (0 %) -Granulation Quality [place] -Necrosis Amt Large (67-100%) -Necrotic Tissue Type Eschar -Structure Exposed N/A -Texture (Lisa-wound Skin Appearance) Scarring -Moisture (Lisa-wound Skin Appearance Dry/Scaly ) -Color (Lisa-wound Skin Appearance) Hemosiderin Staining -Temperature (Lisa-wound Skin No Abnormality Appearance) (Pt Warm) -Tenderness on Palpation (Lisa-wound No Skin Appearance) -Ulcer Cleansing Wound Cleanser -Foul Odor after Cleansing No -Anesthetic Used 4% Lidocaine Solution #2 R [place] Cluster -Current Size (cm) - Length 9.9 -Current Size (cm) - Width 1.5 -Current Size (cm) - Depth 0.2 -Total Square Cm 14.85 -Photo Taken No -Exudate Amt Small -Exudate Type Serosanguineous -Wound Margin Thickened -Granulation Amt Medium (34-66%) -Granulation Quality Red -Necrosis Amt Medium (34-66%) -Necrotic Tissue Type Adherent Slough -Structure Exposed N/A -Texture (Lisa-wound Skin Appearance) Scarring -Moisture (Lisa-wound Skin Appearance Dry/Scaly ) -Color (Lisa-wound Skin Appearance) Hemosiderin Staining -Temperature (Lisa-wound Skin No Abnormality Appearance) (Pt Warm) -Tenderness on Palpation (Lisa-wound No Skin Appearance) -Ulcer Cleansing Wound Cleanser -Foul Odor after Cleansing No -Anesthetic Used 4% Lidocaine Solution #1 R 2nd toe amp -Current Size (cm) - Length 1.3 -Current Size (cm) - Width 0.2 -Current Size (cm) - Depth 0.5 -Total Square Cm 0.26 -Photo Taken No -Exudate Amt Small -Exudate Type Serosanguineous -Wound Margin Thickened -Granulation Amt Small (1-33%) -Granulation Quality Red -Necrosis Amt Small (1-33%) -Necrotic Tissue Type Adherent Slough -Structure Exposed N/A -Texture (Lisa-wound Skin Appearance) Scarring -Moisture (Lisa-wound Skin Appearance Dry/Scaly ) -Color (Lisa-wound Skin Appearance) No Abnormality -Temperature (Lisa-wound Skin No Abnormality Appearance) (Pt Warm) -Tenderness on Palpation (Lisa-wound No Skin Appearance) -Ulcer Cleansing Wound Cleanser -Foul Odor after Cleansing No -Anesthetic Used 4% Lidocaine Solution [Edema Assessment] -Right Calf (cm) 35.4 -Right Ankle (cm) 20.7 -Left Calf (cm) 34.5 -Left Ankle (cm) 20.8 - Nurse 2 - General Ulcer CM Notes Start: 03/29/19 08:16 Freq: Status: Active Protocol: Activity Type Activity Date Activity User E-Sign Co-Sign Detail Recorded Client Recorded Date Recorded By Document 04/12/19 08:38 MW [id number] 04/12/19 08:40 MW 04/12/19 08:38 Wound Center Nurse 2 [Procedure/Treatment] #8 r Knee -Time 08:38 -Correct Patient Yes -Correct Side, Site, Position Yes -Correct Procedure Yes -Procedure Performed Yes -Type of Procedure Debridement -Clinical Debridement Subcutaneous -Post Debridement Size (cm) - Length 0.4 -Post Debridement Size (cm) - Width 0.1 -Post Debridement Size (cm) - Depth 0.2 -Total Square Cm 0.04 -Wound/Ulcer Outcome Not Healed -Ulcer Cleansing Rinsed/ Irrigated with Saline -Foul Odor after Cleansing No -Bioengineered Tissue No -Bleeding Controlled with Pressure -Offloading No -Treatment Response Procedure Tolerated Well [See Physician Procedure note for Specifics] Musculoskeletal: No Muscle Wasting Neurological: Cranial nerves II-XII grossly intact Psych/Mental Status: Normal Affect Debridement Note Post-Debridement Measurements/Treatment - Nurse 2 - General Ulcer CM Notes Start: 03/29/19 08:16 Freq: Status: Active Protocol: Activity Type Activity Date Activity User E-Sign Co-Sign Detail Recorded Client Recorded Date Recorded By Document 03/29/19 08:57 AN [id number] 03/29/19 09:05 AN Document 03/29/19 14:27 MW [id number] 03/29/19 14:29 MW Document 04/12/19 08:38 MW [id number] 04/12/19 08:40 MW 03/29/19 03/29/19 04/12/19 08:57 14:27 08:38 Wound Center Nurse 2 #12 left plantar -Time 08:58 -Correct Patient Yes -Correct Side, Site, Position Yes -Correct Procedure Yes -Procedure Performed Yes -Type of Procedure Debridement -Clinical Debridement Subcutaneous -Post Debridement Size (cm) - Length 0.2 -Post Debridement Size (cm) - Width 0.2 -Post Debridement Size (cm) - Depth 0.1 -Total Square Cm 0.04 #11 RIGHT MEDIAL FOOT -Time 08:58 -Correct Patient Yes -Correct Side, Site, Position Yes -Correct Procedure Yes -Procedure Performed Yes -Type of Procedure Debridement -Clinical Debridement Subcutaneous -Post Debridement Size (cm) - Length 13.1 -Post Debridement Size (cm) - Width 0.3 -Post Debridement Size (cm) - Depth 0.4 -Total Square Cm 3.93 -Wound/Ulcer Outcome Not Healed -Ulcer Cleansing Rinsed/ Irrigated with Saline -Foul Odor after Cleansing No -Bioengineered Tissue No -Bleeding Controlled with Pressure -Offloading No -Treatment Response Procedure Tolerated Well #8 r Knee -Time 09:30 08:38 -Correct Patient Yes Yes -Correct Side, Site, Position Yes Yes -Correct Procedure Yes Yes -Procedure Performed Yes Yes -Type of Procedure Debridement Debridement -Clinical Debridement Subcutaneous Subcutaneous -Post Debridement Size (cm) - Length 0.5 0.4 -Post Debridement Size (cm) - Width 0.2 0.1 -Post Debridement Size (cm) - Depth 0.2 0.2 -Total Square Cm 0.10 0.04 -Wound/Ulcer Outcome Not Healed Not Healed -Ulcer Cleansing Rinsed/ Irrigated with Saline -Foul Odor after Cleansing No -Bioengineered Tissue No -Bleeding Controlled with Pressure -Offloading No -Treatment Response Procedure Tolerated Well #6 L Post -Time 08:59 -Correct Patient Yes -Correct Side, Site, Position Yes -Correct Procedure Yes -Procedure Performed Yes -Type of Procedure Debridement -Clinical Debridement Subcutaneous -Post Debridement Size (cm) - Length 21.6 -Post Debridement Size (cm) - Width 1.9 -Post Debridement Size (cm) - Depth 0.3 -Total Square Cm 41.04 -Wound/Ulcer Outcome Not Healed -Ulcer Cleansing Rinsed/ Irrigated with Saline -Foul Odor after Cleansing No -Bioengineered Tissue No -Bleeding Controlled with Pressure -Offloading No -Treatment Response Procedure Tolerated Well #5 R Lat LE -Time 08:59 -Correct Patient Yes -Correct Side, Site, Position Yes -Correct Procedure Yes -Procedure Performed Yes -Type of Procedure Debridement -Clinical Debridement Subcutaneous -Post Debridement Size (cm) - Length 0.2 -Post Debridement Size (cm) - Width 0.2 -Post Debridement Size (cm) - Depth 0.3 -Total Square Cm 0.04 -Wound/Ulcer Outcome Not Healed -Foul Odor after Cleansing No -Bioengineered Tissue No -Bleeding Controlled with Pressure -Offloading No -Treatment Response Procedure Tolerated Well #4 R post LE -Time 09:00 -Correct Patient Yes -Correct Side, Site, Position Yes -Correct Procedure Yes -Procedure Performed Yes -Type of Procedure Debridement -Clinical Debridement Subcutaneous -Post Debridement Size (cm) - Length 0.9 -Post Debridement Size (cm) - Width 2.6 -Post Debridement Size (cm) - Depth 0.2 -Total Square Cm 2.34 -Wound/Ulcer Outcome Not Healed -Ulcer Cleansing Rinsed/ Irrigated with Saline -Foul Odor after Cleansing No -Bioengineered Tissue No -Bleeding Controlled with Pressure -Offloading No -Treatment Response Procedure Tolerated Well #3 R Med LE -Time 09:00 -Correct Patient Yes -Correct Side, Site, Position Yes -Correct Procedure Yes -Procedure Performed Yes -Type of Procedure Debridement -Clinical Debridement Subcutaneous -Post Debridement Size (cm) - Length 0.2 -Post Debridement Size (cm) - Width 0.2 -Post Debridement Size (cm) - Depth 0.1 -Total Square Cm 0.04 -Wound/Ulcer Outcome Not Healed -Ulcer Cleansing Rinsed/ Irrigated with Saline -Foul Odor after Cleansing No -Bioengineered Tissue No -Bleeding Controlled with Pressure -Offloading No -Treatment Response Procedure Tolerated Well #2 R [place] Cluster -Time 09:00 -Correct Patient Yes -Correct Side, Site, Position Yes -Correct Procedure Yes -Procedure Performed Yes -Type of Procedure Debridement -Clinical Debridement Subcutaneous -Post Debridement Size (cm) - Length 10.6 -Post Debridement Size (cm) - Width 2.6 -Post Debridement Size (cm) - Depth 0.2 -Total Square Cm 27.56 -Wound/Ulcer Outcome Not Healed -Ulcer Cleansing Rinsed/ Irrigated with Saline -Foul Odor after Cleansing No -Bioengineered Tissue No -Bleeding Controlled with Pressure -Offloading No -Treatment Response Procedure Tolerated Well #1 R 2nd toe amp -Time 09:01 -Correct Patient Yes -Correct Side, Site, Position Yes -Correct Procedure Yes -Procedure Performed Yes -Type of Procedure Debridement -Clinical Debridement Subcutaneous -Post Debridement Size (cm) - Length 1.6 -Post Debridement Size (cm) - Width 0.5 -Post Debridement Size (cm) - Depth 0.3 -Total Square Cm 0.80 -Wound/Ulcer Outcome Not Healed -Ulcer Cleansing Rinsed/ Irrigated with Saline -Foul Odor after Cleansing No -Bioengineered Tissue No -Bleeding Controlled with Pressure -Offloading No -Treatment Response Procedure Tolerated Well Pain Scale: 0-10 Numeric Is Patient Pain Free? 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 Diabetic neuropathy. Malnutrition suspected. 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 Delayed heali ng. Gait impairment and fall risk. Other comorbidities, right knee ulcer Plan: Right knee is improving. No new concerns at this time. Debridement done as documented above, procedure was well-tolerated. Continue chromogranin Adaptic over top. Change every other day. Elevate lower extremities when seated and in bed. Continue other wound care management per Dr. Gruber. Currently complex care. Follow-up in 2 weeks. This note was generated with [employer] software. It may contain incorrect words, spelling, and punctuation that were not noted in checking the note before signing.
--- NOTE | 2019-04-12 11:01 | PCM.WC.PN ---
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 Current Visit: Yes Code(s): L97.923 - Non-pressure chronic ulcer of unspecified part of left lower leg with necrosis of muscle (5) Ulcer of right lower extremity with fat layer exposed Status: Chronic Current Visit: Yes Code(s): L97.912 - Non-pressure chronic ulcer of unspecified part of right lower leg with fat layer exposed (6) Ulcer of left lower extremity with fat layer exposed Status: Chronic Current Visit: Yes Code(s): L97.922 - Non-pressure chronic ulcer of unspecified part of left lower leg with fat layer exposed (7) 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 Current Visit: Yes Code(s): L97.923 - Non-pressure chronic ulcer of unspecified part of left lower leg with necrosis of muscle (8) Type 2 diabetes mellitus with diabetic polyneuropathy Status: Chronic Current Visit: Yes Code(s): E11.42 - Type 2 diabetes mellitus with diabetic polyneuropathy (9) Localized edema Status: Chronic Current Visit: Yes Code(s): R60.0 - Localized edema (10) Malnutrition Status: Chronic Current Visit: Yes Code(s): E46 - Unspecified protein-calorie malnutrition (11) 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 Status: Acute Current Visit: Yes Code(s): L97.913 - Non-pressure chronic ulcer of unspecified part of right lower leg with necrosis of muscle Type of Wound Chief Complaint: right and left Leg ulcers and right foot ulcers History of Wound: Mr. Arguello is a 64-year-old male with multiple comorbidities follows up for delayed healing ulcers to the right and left foot as well as bilateral legs. It is noted he previously had widespread debridements and fasciotomies performed to bilateral lower extremities secondary to life-threatening and limb threatening infection; this was previously performed at [facility]. He continues to follow with Dr. Gilbert for his right knee ulcer. He denies chills, fever or otherwise feeling of unwell. He presents today with his . He still refuses advanced wound care product application. He refuses hyperbaric oxygen therapy treatment. He elects to proceed with a palliative care plan because he is refusing the other treatment recommendations. He is with his today. He is trying to keep pressure off this ulcer sites. Progress of Wound: Stable all - Physical Exam Vital Signs Temp Pulse Resp BP 97.3 F L 84 18 128/86 H 04/12/19 08:10 04/12/19 08:10 04/12/19 08:10 04/12/19 08:10 General: Alert, Oriented x3, Cooperative, No apparent distress Extremities: No cyanosis, Capillary Refill Less than 3 Seconds, No Calf Tenderness, Diminished Peripheral Pulses, Edema - Mild Skin: Ulcer/ Wound - No purulence, erythema, streaking, odor, or infection. Devitalized tendon noted to right posterior leg ulcer site which was debrided Wound Measurements and Assessment WC - Nurse 1 - General Ulcer Measurement Start: 03/29/19 08:16 Freq: Status: Active Protocol: Activity Type Activity Date Activity User E-Sign Co-Sign Detail Recorded Client Recorded Date Recorded By Document 04/12/19 08:10 DL [id number] 04/12/19 08:29 DL 04/12/19 08:10 Wound Center Nurse 1 [Ulcer Assessment] #11 RIGHT MEDIAL FOOT -Current Size (cm) - Length 12 -Current Size (cm) - Width 1.5 -Current Size (cm) - Depth 0.2 -Total Square Cm 18.0 -Photo Taken No -Exudate Amt Small -Exudate Type Yellow/Green -Wound Margin Thickened -Granulation Amt Medium (34-66%) -Granulation Quality Red -Necrosis Amt Medium (34-66%) -Necrotic Tissue Type Adherent Slough -Structure Exposed N/A -Texture (Lisa-wound Skin Appearance) Scarring -Moisture (Lisa-wound Skin Appearance Dry/Scaly ) -Color (Lisa-wound Skin Appearance) Hemosiderin Staining -Temperature (Lisa-wound Skin No Abnormality Appearance) (Pt Warm) -Tenderness on Palpation (Lisa-wound No Skin Appearance) -Ulcer Cleansing Wound Cleanser -Foul Odor after Cleansing No -Anesthetic Used 4% Lidocaine Solution #8 r Knee -Current Size (cm) - Length 0.7 -Current Size (cm) - Width 0.6 -Current Size (cm) - Depth 0.2 -Total Square Cm 0.42 -Photo Taken No -Exudate Amt None Present -Wound Margin Distinct, Outline Attached -Granulation Amt Large (67-100%) -Granulation Quality [place] -Necrosis Amt None Present (0 %) -Structure Exposed N/A -Texture (Lisa-wound Skin Appearance) Scarring -Moisture (Lisa-wound Skin Appearance Dry/Scaly ) -Color (Lisa-wound Skin Appearance) Hemosiderin Staining -Temperature (Lisa-wound Skin No Abnormality Appearance) (Pt Warm) -Tenderness on Palpation (Lisa-wound No Skin Appearance) -Ulcer Cleansing Wound Cleanser -Foul Odor after Cleansing No -Anesthetic Used 4% Lidocaine Solution #6 L Post -Current Size (cm) - Length 14.5 -Current Size (cm) - Width 1.8 -Current Size (cm) - Depth 0.4 -Total Square Cm 26.10 -Photo Taken No -Exudate Amt Small -Exudate Type Yellow/Green -Wound Margin Distinct, Outline Attached -Granulation Amt Small (1-33%) -Granulation Quality [place] -Necrosis Amt Large (67-100%) -Necrotic Tissue Type Adherent Slough -Structure Exposed N/A -Texture (Lisa-wound Skin Appearance) Scarring -Moisture (Lisa-wound Skin Appearance Dry/Scaly ) -Color (Lisa-wound Skin Appearance) Hemosiderin Staining -Temperature (Lisa-wound Skin No Abnormality Appearance) (Pt Warm) -Tenderness on Palpation (Lisa-wound No Skin Appearance) -Ulcer Cleansing Wound Cleanser -Foul Odor after Cleansing No -Anesthetic Used 4% Lidocaine Solution #5 R Lat LE -Current Size (cm) - Length 1.5 -Current Size (cm) - Width 1.4 -Current Size (cm) - Depth 0.2 -Total Square Cm 2.10 -Photo Taken No -Exudate Amt Small -Exudate Type Yellow/Green -Wound Margin Distinct, Outline Attached -Granulation Amt Medium (34-66%) -Granulation Quality [place] Red -Necrosis Amt Medium (34-66%) -Necrotic Tissue Type Adherent Slough -Structure Exposed N/A -Texture (Lisa-wound Skin Appearance) Scarring -Moisture (Lisa-wound Skin Appearance Dry/Scaly ) -Color (Lisa-wound Skin Appearance) Hemosiderin Staining -Temperature (Lisa-wound Skin No Abnormality Appearance) (Pt Warm) -Tenderness on Palpation (Lisa-wound No Skin Appearance) -Ulcer Cleansing Wound Cleanser -Foul Odor after Cleansing No -Anesthetic Used 4% Lidocaine Solution #4 R post LE -Current Size (cm) - Length 3.6 -Current Size (cm) - Width 2.1 -Current Size (cm) - Depth 0.5 -Total Square Cm 7.56 -Photo Taken No -Exudate Amt Small -Exudate Type Yellow/Green -Wound Margin Distinct, Outline Attached -Granulation Amt Medium (34-66%) -Granulation Quality Red -Necrosis Amt Medium (34-66%) -Necrotic Tissue Type Adherent Slough -Structure Exposed N/A -Texture (Lisa-wound Skin Appearance) Scarring -Moisture (Lisa-wound Skin Appearance Dry/Scaly ) -Color (Lisa-wound Skin Appearance) Hemosiderin Staining -Temperature (Lisa-wound Skin No Abnormality Appearance) (Pt Warm) -Tenderness on Palpation (Lisa-wound No Skin Appearance) -Ulcer Cleansing Wound Cleanser -Foul Odor after Cleansing No -Anesthetic Used 4% Lidocaine Solution #3 R Med LE -Current Size (cm) - Length 0.1 -Current Size (cm) - Width 0.1 -Current Size (cm) - Depth 0.1 -Total Square Cm 0.01 -Photo Taken No -Exudate Amt None Present -Exudate Type Yellow/Green -Wound Margin Distinct, Outline Attached -Granulation Amt None Present (0 %) -Granulation Quality [place] -Necrosis Amt Large (67-100%) -Necrotic Tissue Type Eschar -Structure Exposed N/A -Texture (Lisa-wound Skin Appearance) Scarring -Moisture (Lisa-wound Skin Appearance Dry/Scaly ) -Color (Lisa-wound Skin Appearance) Hemosiderin Staining -Temperature (Lisa-wound Skin No Abnormality Appearance) (Pt Warm) -Tenderness on Palpation (Lisa-wound No Skin Appearance) -Ulcer Cleansing Wound Cleanser -Foul Odor after Cleansing No -Anesthetic Used 4% Lidocaine Solution #2 R [place] Cluster -Current Size (cm) - Length 9.9 -Current Size (cm) - Width 1.5 -Current Size (cm) - Depth 0.2 -Total Square Cm 14.85 -Photo Taken No -Exudate Amt Small -Exudate Type Serosanguineous -Wound Margin Thickened -Granulation Amt Medium (34-66%) -Granulation Quality Red -Necrosis Amt Medium (34-66%) -Necrotic Tissue Type Adherent Slough -Structure Exposed N/A -Texture (Lisa-wound Skin Appearance) Scarring -Moisture (Lisa-wound Skin Appearance Dry/Scaly ) -Color (Lisa-wound Skin Appearance) Hemosiderin Staining -Temperature (Lisa-wound Skin No Abnormality Appearance) (Pt Warm) -Tenderness on Palpation (Lisa-wound No Skin Appearance) -Ulcer Cleansing Wound Cleanser -Foul Odor after Cleansing No -Anesthetic Used 4% Lidocaine Solution #1 R 2nd toe amp -Current Size (cm) - Length 1.3 -Current Size (cm) - Width 0.2 -Current Size (cm) - Depth 0.5 -Total Square Cm 0.26 -Photo Taken No -Exudate Amt Small -Exudate Type Serosanguineous -Wound Margin Thickened -Granulation Amt Small (1-33%) -Granulation Quality Red -Necrosis Amt Small (1-33%) -Necrotic Tissue Type Adherent Slough -Structure Exposed N/A -Texture (Lisa-wound Skin Appearance) Scarring -Moisture (Lisa-wound Skin Appearance Dry/Scaly ) -Color (Lisa-wound Skin Appearance) No Abnormality -Temperature (Lisa-wound Skin No Abnormality Appearance) (Pt Warm) -Tenderness on Palpation (Lisa-wound No Skin Appearance) -Ulcer Cleansing Wound Cleanser -Foul Odor after Cleansing No -Anesthetic Used 4% Lidocaine Solution [Edema Assessment] -Right Calf (cm) 35.4 -Right Ankle (cm) 20.7 -Left Calf (cm) 34.5 -Left Ankle (cm) 20.8 WC - Nurse 2 - General Ulcer CM Notes Start: 03/29/19 08:16 Freq: Status: Active Protocol: Activity Type Activity Date Activity User E-Sign Co-Sign Detail Recorded Client Recorded Date Recorded By Document 04/12/19 08:38 MW [id number] 04/12/19 08:40 MW Document 04/12/19 08:45 AN [id number] 04/12/19 08:57 AN 04/12/19 04/12/19 08:38 08:45 Wound Center Nurse 2 [Procedure/Treatment] #11 RIGHT MEDIAL FOOT -Time 08:53 -Correct Patient Yes -Correct Side, Site, Position Yes -Correct Procedure Yes -Procedure Performed Yes -Type of Procedure Debridement -Clinical Debridement Subcutaneous -Post Debridement Size (cm) - Length 12.1 -Post Debridement Size (cm) - Width 1.6 -Post Debridement Size (cm) - Depth 0.2 -Total Square Cm 19.36 -Wound/Ulcer Outcome Not Healed -Treatment Response Procedure Tolerated Well #8 r Knee -Time 08:38 -Correct Patient Yes -Correct Side, Site, Position Yes -Correct Procedure Yes -Procedure Performed Yes -Type of Procedure Debridement -Clinical Debridement Subcutaneous -Post Debridement Size (cm) - Length 0.4 -Post Debridement Size (cm) - Width 0.1 -Post Debridement Size (cm) - Depth 0.2 -Total Square Cm 0.04 -Wound/Ulcer Outcome Not Healed -Ulcer Cleansing Rinsed/ Irrigated with Saline -Foul Odor after Cleansing No -Bioengineered Tissue No -Bleeding Controlled with Pressure -Offloading No -Treatment Response Procedure Tolerated Well #6 L Post -Time 08:53 -Correct Patient Yes -Correct Side, Site, Position Yes -Correct Procedure Yes -Procedure Performed Yes -Type of Procedure Debridement -Clinical Debridement Subcutaneous -Post Debridement Size (cm) - Length 14.6 -Post Debridement Size (cm) - Width 1.9 -Post Debridement Size (cm) - Depth 0.4 -Total Square Cm 27.74 -Wound/Ulcer Outcome Not Healed -Treatment Response Procedure Tolerated Well #5 R Lat LE -Time 08:54 -Correct Patient Yes -Correct Side, Site, Position Yes -Correct Procedure Yes -Procedure Performed Yes -Type of Procedure Debridement -Clinical Debridement Subcutaneous -Post Debridement Size (cm) - Length 1.6 -Post Debridement Size (cm) - Width 1.5 -Post Debridement Size (cm) - Depth 0.2 -Total Square Cm 2.40 -Wound/Ulcer Outcome Not Healed -Bleeding Controlled with Pressure -Treatment Response Procedure Tolerated Well #4 R post LE -Time 08:54 -Correct Patient Yes -Correct Side, Site, Position Yes -Correct Procedure Yes -Procedure Performed Yes -Type of Procedure Debridement -Clinical Debridement Muscle -Post Debridement Size (cm) - Length 3.7 -Post Debridement Size (cm) - Width 2.2 -Post Debridement Size (cm) - Depth 0.5 -Total Square Cm 8.14 -Wound/Ulcer Outcome Not Healed -Bleeding Controlled with Pressure -Treatment Response Procedure Tolerated Well #3 R Med LE -Time 08:54 -Correct Patient Yes -Correct Side, Site, Position Yes -Correct Procedure Yes -Procedure Performed Yes -Type of Procedure Debridement -Clinical Debridement Subcutaneous -Post Debridement Size (cm) - Length 0.2 -Post Debridement Size (cm) - Width 0.2 -Post Debridement Size (cm) - Depth 0.1 -Total Square Cm 0.04 -Wound/Ulcer Outcome Not Healed -Bleeding Controlled with Pressure #2 R [place] Cluster -Time 08:55 -Correct Patient Yes -Correct Side, Site, Position Yes -Correct Procedure Yes -Procedure Performed Yes -Type of Procedure Debridement -Clinical Debridement Subcutaneous -Post Debridement Size (cm) - Length 10 -Post Debridement Size (cm) - Width 1.6 -Post Debridement Size (cm) - Depth 0.2 -Total Square Cm 16.0 -Wound/Ulcer Outcome Not Healed -Bleeding Controlled with Pressure -Treatment Response Procedure Tolerated Well #1 R 2nd toe amp -Time 08:56 -Correct Patient Yes -Correct Side, Site, Position Yes -Correct Procedure Yes -Procedure Performed Yes -Type of Procedure Debridement -Clinical Debridement Subcutaneous -Post Debridement Size (cm) - Length 1.4 -Post Debridement Size (cm) - Width 0.4 -Post Debridement Size (cm) - Depth 0.5 -Total Square Cm 0.56 -Wound/Ulcer Outcome Not Healed -Bleeding Controlled with Pressure -Treatment Response Procedure Tolerated Well [See Physician Procedure note for Specifics] Pain Scale: 0-10 Numeric [Pain] -Is Patient Pain Free? Yes Musculoskeletal: No Tenderness to Palpation of Joints or Extremities, Muscle Wasting Neurological: - - Lack of sensation light touch Psych/Mental Status: Normal Affect, Appropriate Debridement Note Post-Debridement Measurements/Treatment WC - Nurse 2 - General Ulcer CM Notes Start: 03/29/19 08:16 Freq: Status: Active Protocol: Activity Type Activity Date Activity User E-Sign Co-Sign Detail Recorded Client Recorded Date Recorded By Document 03/29/19 08:57 AN [id number] 03/29/19 09:05 AN Document 03/29/19 14:27 MW [id number] 03/29/19 14:29 MW Document 04/12/19 08:38 MW [id number] 04/12/19 08:40 MW Document 04/12/19 08:45 AN [id number] 04/12/19 08:57 AN 03/29/19 03/29/19 04/12/19 08:57 14:27 08:38 Wound Center Nurse 2 #12 left plantar -Time 08:58 -Correct Patient Yes -Correct Side, Site, Position Yes -Correct Procedure Yes -Procedure Performed Yes -Type of Procedure Debridement -Clinical Debridement Subcutaneous -Post Debridement Size (cm) - Length 0.2 -Post Debridement Size (cm) - Width 0.2 -Post Debridement Size (cm) - Depth 0.1 -Total Square Cm 0.04 #11 RIGHT MEDIAL FOOT -Time 08:58 -Correct Patient Yes -Correct Side, Site, Position Yes -Correct Procedure Yes -Procedure Performed Yes -Type of Procedure Debridement -Clinical Debridement Subcutaneous -Post Debridement Size (cm) - Length 13.1 -Post Debridement Size (cm) - Width 0.3 -Post Debridement Size (cm) - Depth 0.4 -Total Square Cm 3.93 -Wound/Ulcer Outcome Not Healed -Ulcer Cleansing Rinsed/ Irrigated with Saline -Foul Odor after Cleansing No -Bioengineered Tissue No -Bleeding Controlled with Pressure -Offloading No -Treatment Response Procedure Tolerated Well #8 r Knee -Time 09:30 08:38 -Correct Patient Yes Yes -Correct Side, Site, Position Yes Yes -Correct Procedure Yes Yes -Procedure Performed Yes Yes -Type of Procedure Debridement Debridement -Clinical Debridement Subcutaneous Subcutaneous -Post Debridement Size (cm) - Length 0.5 0.4 -Post Debridement Size (cm) - Width 0.2 0.1 -Post Debridement Size (cm) - Depth 0.2 0.2 -Total Square Cm 0.10 0.04 -Wound/Ulcer Outcome Not Healed Not Healed -Ulcer Cleansing Rinsed/ Irrigated with Saline -Foul Odor after Cleansing No -Bioengineered Tissue No -Bleeding Controlled with Pressure -Offloading No -Treatment Response Procedure Tolerated Well #6 L Post -Time 08:59 -Correct Patient Yes -Correct Side, Site, Position Yes -Correct Procedure Yes -Procedure Performed Yes -Type of Procedure Debridement -Clinical Debridement Subcutaneous -Post Debridement Size (cm) - Length 21.6 -Post Debridement Size (cm) - Width 1.9 -Post Debridement Size (cm) - Depth 0.3 -Total Square Cm 41.04 -Wound/Ulcer Outcome Not Healed -Ulcer Cleansing Rinsed/ Irrigated with Saline -Foul Odor after Cleansing No -Bioengineered Tissue No -Bleeding Controlled with Pressure -Offloading No -Treatment Response Procedure Tolerated Well #5 R Lat LE -Time 08:59 -Correct Patient Yes -Correct Side, Site, Position Yes -Correct Procedure Yes -Procedure Performed Yes -Type of Procedure Debridement -Clinical Debridement Subcutaneous -Post Debridement Size (cm) - Length 0.2 -Post Debridement Size (cm) - Width 0.2 -Post Debridement Size (cm) - Depth 0.3 -Total Square Cm 0.04 -Wound/Ulcer Outcome Not Healed -Foul Odor after Cleansing No -Bioengineered Tissue No -Bleeding Controlled with Pressure -Offloading No -Treatment Response Procedure Tolerated Well #4 R post LE -Time 09:00 -Correct Patient Yes -Correct Side, Site, Position Yes -Correct Procedure Yes -Procedure Performed Yes -Type of Procedure Debridement -Clinical Debridement Subcutaneous -Post Debridement Size (cm) - Length 0.9 -Post Debridement Size (cm) - Width 2.6 -Post Debridement Size (cm) - Depth 0.2 -Total Square Cm 2.34 -Wound/Ulcer Outcome Not Healed -Ulcer Cleansing Rinsed/ Irrigated with Saline -Foul Odor after Cleansing No -Bioengineered Tissue No -Bleeding Controlled with Pressure -Offloading No -Treatment Response Procedure Tolerated Well #3 R Med LE -Time 09:00 -Correct Patient Yes -Correct Side, Site, Position Yes -Correct Procedure Yes -Procedure Performed Yes -Type of Procedure Debridement -Clinical Debridement Subcutaneous -Post Debridement Size (cm) - Length 0.2 -Post Debridement Size (cm) - Width 0.2 -Post Debridement Size (cm) - Depth 0.1 -Total Square Cm 0.04 -Wound/Ulcer Outcome Not Healed -Ulcer Cleansing Rinsed/ Irrigated with Saline -Foul Odor after Cleansing No -Bioengineered Tissue No -Bleeding Controlled with Pressure -Offloading No -Treatment Response Procedure Tolerated Well #2 R [place] Cluster -Time 09:00 -Correct Patient Yes -Correct Side, Site, Position Yes -Correct Procedure Yes -Procedure Performed Yes -Type of Procedure Debridement -Clinical Debridement Subcutaneous -Post Debridement Size (cm) - Length 10.6 -Post Debridement Size (cm) - Width 2.6 -Post Debridement Size (cm) - Depth 0.2 -Total Square Cm 27.56 -Wound/Ulcer Outcome Not Healed -Ulcer Cleansing Rinsed/ Irrigated with Saline -Foul Odor after Cleansing No -Bioengineered Tissue No -Bleeding Controlled with Pressure -Offloading No -Treatment Response Procedure Tolerated Well #1 R 2nd toe amp -Time 09:01 -Correct Patient Yes -Correct Side, Site, Position Yes -Correct Procedure Yes -Procedure Performed Yes -Type of Procedure Debridement -Clinical Debridement Subcutaneous -Post Debridement Size (cm) - Length 1.6 -Post Debridement Size (cm) - Width 0.5 -Post Debridement Size (cm) - Depth 0.3 -Total Square Cm 0.80 -Wound/Ulcer Outcome Not Healed -Ulcer Cleansing Rinsed/ Irrigated with Saline -Foul Odor after Cleansing No -Bioengineered Tissue No -Bleeding Controlled with Pressure -Offloading No -Treatment Response Procedure Tolerated Well Pain Scale: 0-10 Numeric Is Patient Pain Free? Yes 04/12/19 08:45 Wound Center Nurse 2 #12 left plantar -Time -Correct Patient -Correct Side, Site, Position -Correct Procedure -Procedure Performed -Type of Procedure -Clinical Debridement -Post Debridement Size (cm) - Length -Post Debridement Size (cm) - Width -Post Debridement Size (cm) - Depth -Total Square Cm #11 RIGHT MEDIAL FOOT -Time 08:53 -Correct Patient Yes -Correct Side, Site, Position Yes -Correct Procedure Yes -Procedure Performed Yes -Type of Procedure Debridement -Clinical Debridement Subcutaneous -Post Debridement Size (cm) - Length 12.1 -Post Debridement Size (cm) - Width 1.6 -Post Debridement Size (cm) - Depth 0.2 -Total Square Cm 19.36 -Wound/Ulcer Outcome Not Healed -Ulcer Cleansing -Foul Odor after Cleansing -Bioengineered Tissue -Bleeding Controlled with -Offloading -Treatment Response Procedure Tolerated Well #8 r Knee -Time -Correct Patient -Correct Side, Site, Position -Correct Procedure -Procedure Performed -Type of Procedure -Clinical Debridement -Post Debridement Size (cm) - Length -Post Debridement Size (cm) - Width -Post Debridement Size (cm) - Depth -Total Square Cm -Wound/Ulcer Outcome -Ulcer Cleansing -Foul Odor after Cleansing -Bioengineered Tissue -Bleeding Controlled with -Offloading -Treatment Response #6 L Post -Time 08:53 -Correct Patient Yes -Correct Side, Site, Position Yes -Correct Procedure Yes -Procedure Performed Yes -Type of Procedure Debridement -Clinical Debridement Subcutaneous -Post Debridement Size (cm) - Length 14.6 -Post Debridement Size (cm) - Width 1.9 -Post Debridement Size (cm) - Depth 0.4 -Total Square Cm 27.74 -Wound/Ulcer Outcome Not Healed -Ulcer Cleansing -Foul Odor after Cleansing -Bioengineered Tissue -Bleeding Controlled with -Offloading -Treatment Response Procedure Tolerated Well #5 R Lat LE -Time 08:54 -Correct Patient Yes -Correct Side, Site, Position Yes -Correct Procedure Yes -Procedure Performed Yes -Type of Procedure Debridement -Clinical Debridement Subcutaneous -Post Debridement Size (cm) - Length 1.6 -Post Debridement Size (cm) - Width 1.5 -Post Debridement Size (cm) - Depth 0.2 -Total Square Cm 2.40 -Wound/Ulcer Outcome Not Healed -Foul Odor after Cleansing -Bioengineered Tissue -Bleeding Controlled with Pressure -Offloading -Treatment Response Procedure Tolerated Well #4 R post LE -Time 08:54 -Correct Patient Yes -Correct Side, Site, Position Yes -Correct Procedure Yes -Procedure Performed Yes -Type of Procedure Debridement -Clinical Debridement Muscle -Post Debridement Size (cm) - Length 3.7 -Post Debridement Size (cm) - Width 2.2 -Post Debridement Size (cm) - Depth 0.5 -Total Square Cm 8.14 -Wound/Ulcer Outcome Not Healed -Ulcer Cleansing -Foul Odor after Cleansing -Bioengineered Tissue -Bleeding Controlled with Pressure -Offloading -Treatment Response Procedure Tolerated Well #3 R Med LE -Time 08:54 -Correct Patient Yes -Correct Side, Site, Position Yes -Correct Procedure Yes -Procedure Performed Yes -Type of Procedure Debridement -Clinical Debridement Subcutaneous -Post Debridement Size (cm) - Length 0.2 -Post Debridement Size (cm) - Width 0.2 -Post Debridement Size (cm) - Depth 0.1 -Total Square Cm 0.04 -Wound/Ulcer Outcome Not Healed -Ulcer Cleansing -Foul Odor after Cleansing -Bioengineered Tissue -Bleeding Controlled with Pressure -Offloading -Treatment Response #2 R [place] Cluster -Time 08:55 -Correct Patient Yes -Correct Side, Site, Position Yes -Correct Procedure Yes -Procedure Performed Yes -Type of Procedure Debridement -Clinical Debridement Subcutaneous -Post Debridement Size (cm) - Length 10 -Post Debridement Size (cm) - Width 1.6 -Post Debridement Size (cm) - Depth 0.2 -Total Square Cm 16.0 -Wound/Ulcer Outcome Not Healed -Ulcer Cleansing -Foul Odor after Cleansing -Bioengineered Tissue -Bleeding Controlled with Pressure -Offloading -Treatment Response Procedure Tolerated Well #1 R 2nd toe amp -Time 08:56 -Correct Patient Yes -Correct Side, Site, Position Yes -Correct Procedure Yes -Procedure Performed Yes -Type of Procedure Debridement -Clinical Debridement Subcutaneous -Post Debridement Size (cm) - Length 1.4 -Post Debridement Size (cm) - Width 0.4 -Post Debridement Size (cm) - Depth 0.5 -Total Square Cm 0.56 -Wound/Ulcer Outcome Not Healed -Ulcer Cleansing -Foul Odor after Cleansing -Bioengineered Tissue -Bleeding Controlled with Pressure -Offloading -Treatment Response Procedure Tolerated Well Pain Scale: 0-10 Numeric Is Patient Pain Free? Yes Wound debrided: posterior leg Laterality: Right Wound Grade/Stage: grade 2 Type of Debridement: Excisional debridement Anesthesia Used: 5% Lidocaine Gel Depth: in the subcutaneous layer Percentage of wound debrided: 100 Instrument Used: #15 blade, Forceps Tissue Removed: fibrous, devitalized subcutaneous, biofilm, slough Severity: Fat Layer Exposed Amount of bleeding with debridement: Mild Bleeding Controlled with: Pressure Patient tolerated procedure well - Additional Wound Wound debrided: medial leg Laterality: Right Wound Grade/Stage: grade 1 Type of Debridement: Excisional debridement Anesthesia Used: 5% Lidocaine Gel Depth: in the subcutaneous layer Percentage of wound debrided: 100 Instrument Used: #15 blade Tissue Removed: fibrous, devitalized subcutaneous, biofilm, slough Severity: Fat Layer Exposed Amount of bleeding with debridement: Mild Bleeding Controlled with: Pressure Patient tolerated procedure: Patient tolerated procedure well - Additional Wound Wound debrided: lateral leg Laterality: Right Wound Grade/Stage: grade 1 Type of Debridement: Excisional debridement Anesthesia Used: 5% Lidocaine Gel Depth: in the subcutaneous layer Percentage of wound debrided: 100 Instrument Used: #15 blade Tissue Removed: fibrous, devitalized subcutaneous, biofilm, slough Severity: Fat Layer Exposed Amount of bleeding with debridement: Mild Bleeding Controlled with: Pressure Patient tolerated procedure: Patient tolerated procedure well - Additional Wound Wound debrided: anterior leg Laterality: Right Wound Grade/Stage: grade 1 Type of Debridement: Excisional debridement Anesthesia Used: 5% Lidocaine Gel Depth: in the subcutaneous layer Percentage of wound debrided: 100 Instrument Used: #15 blade Tissue Removed: fibrous, devitalized subcutaneous, biofilm, slough Severity: Fat Layer Exposed Amount of bleeding with debridement: Mild Bleeding Controlled with: Pressure Patient tolerated procedure: Patient tolerated procedure well - Additional Wound Wound debrided: forefoot Laterality: Right Wound Grade/Stage: grade 3 Type of Debridement: Excisional debridement Anesthesia Used: 5% Lidocaine Gel Depth: in the subcutaneous layer Percentage of wound debrided: 100 Instrument Used: #15 blade Tissue Removed: fibrous, devitalized subcutaneous, biofilm, slough Severity: Fat Layer Exposed Amount of bleeding with debridement: Mild Bleeding Controlled with: Pressure Patient tolerated procedure: Patient tolerated procedure well - Additional Wound Wound debrided: medial foot/ankle Laterality: Right - g Wound Grade/Stage: grade 1 Type of Debridement: Excisional debridement Anesthesia Used: 5% Lidocaine Gel Depth: in the subcutaneous layer Percentage of wound debrided: 100 Instrument Used: #15 blade Tissue Removed: fibrous, devitalized subcutaneous, biofilm, slough Severity: Fat Layer Exposed Amount of bleeding with debridement: Mild Bleeding Controlled with: Pressure Patient tolerated procedure: Patient tolerated procedure well - Additional Wound Wound debrided: posterior leg Laterality: Left Wound Grade/Stage: grade 2 Type of Debridement: Excisional debridement Anesthesia Used: 5% Lidocaine Gel Depth: in the subcutaneous layer Percentage of wound debrided: 100 Instrument Used: #15 blade Tissue Removed: fibrous, devitalized subcutaneous, biofilm, slough Severity: Fat Layer Exposed Amount of bleeding with debridement: Mild Bleeding Controlled with: Pressure Patient tolerated procedure: Patient tolerated procedure well Assessment/Plan Active Problems (Last Updated 09/28/18 @ 12:41 by Geraldine Steele) Ulcer of right foot with fat layer exposed (Chronic) 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) 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 (Acute) Delayed wound healing (Chronic) 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) Ulcer of right lower extremity with fat layer exposed (Chronic) Ulcer of left lower extremity with fat layer exposed (Chronic) 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) Type 2 diabetes mellitus with diabetic polyneuropathy (Chronic) Localized edema (Chronic) Malnutrition (Chronic) Assessment: Open second and third ray resection secondary to 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 Diabetic neuropathy. Malnutrition suspected. 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 Delayed healing. Gait impairment and fall risk. Other comorbidities, right knee ulcer Plan: I reviewed and discussed his case today. He was reassured no infections are noted. Debridement done as documented above in the nursing clinical panel. Procedure was well-tolerated. Continue hydrogel and Adaptic; to change daily due to the reported dryness. His continued tendon exposure to the posterior bilateral legs is noted in the gave him a prescription for an offloading donut pillow. He relates he has been using this. He understands he may need to also prop his heels up on a pillow as long as is not causing any new pressure changes to those sites. Elevate lower extremities when seated and in bed. Continue increased protein intake. I recommend he avoids laying directly on his wounds to reduce pressure, and I was concerned about his perfusion to his limbs. He had an arterial Doppler scheduled with Dr. Morgan's staff on August 02, 2018 and overall perfusion was confirmed; additional intervention or workup was not recommended. It is also noted that he did have venous Doppler performed with reflux evaluation. He did not have evidence of deep venous thrombosis or venous insufficiency at that time; the vessels were compressible. To continue with nutritional supplementation optimize healing; I recommend Juan. I recommend he sustained from smoking and alcohol activities to optimize healing as well. His workup for vasculitis and underlying autoimmune disorder is also pending. A punch biopsy was sent during his last surgical intervention on June 10 and this demonstrated inflammatory changes without malignancy. He had initial screening labs and so far he has a negative RA titer, HL of the 27, KEVIN, anti-CCP, and rheumatoid factor. Several his antibody screenings were not reportable. Hyperbaric oxygen therapy was recommended and it is noted his ejection fraction was most recently 50%. He refuses at this time. Dr. Gilbert continues to manage his right knee ulcer including debridements and traditional wound care plan. He refuses surgical intervention at this time to bilateral lower extremities. I answered all of his questions. Additional amputation of the right foot is not planned due to his fairly nonambulatory status. Smoking cessation was strongly recommended and is imperative to optimize healing. He reports he is cutting back. I recommend further follow-up at the wound care center 2 week with me, or call sooner if he has any questions. Compliance at this advanced wound care center was reviewed. He understands additional palliative care programs are an option if he does not wish to proceed with advanced wound care opportunities that has been recommended. 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
--- NOTE | 2019-04-12 11:05 | PN.PCM_ITS ---
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 Current Visit: Yes Code(s): L97.923 - Non-pressure chronic ulcer of unspecified part of left lower leg with necrosis of muscle (5) Ulcer of right lower extremity with fat layer exposed Status: Chronic Current Visit: Yes Code(s): L97.912 - Non-pressure chronic ulcer of unspecified part of right lower leg with fat layer exposed (6) Ulcer of left lower extremity with fat layer exposed Status: Chronic Current Visit: Yes Code(s): L97.922 - Non-pressure chronic ulcer of unspecified part of left lower leg with fat layer exposed (7) 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 Current Visit: Yes Code(s): L97.923 - Non-pressure chronic ulcer of unspecified part of left lower leg with necrosis of muscle (8) Type 2 diabetes mellitus with diabetic polyneuropathy Status: Chronic Current Visit: Yes Code(s): E11.42 - Type 2 diabetes mellitus with diabetic polyneuropathy (9) Localized edema Status: Chronic Current Visit: Yes Code(s): R60.0 - Localized edema (10) Malnutrition Status: Chronic Current Visit: Yes Code(s): E46 - Unspecified protein- calorie malnutrition (11) 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 Status: Acute Current Visit: Yes Code(s): L97.913 - Non-pressure chronic ulcer of unspecified part of right lower leg with necrosis of muscle Type of Wound Chief Complaint: right and left Leg ulcers and right foot ulcers History of Wound: Mr. Arguello is a 64-year-old male with multiple comorbidities follows up for delayed healing ulcers to the right and left foot as well as bilateral legs. It is noted he previously had widespread debridements and fasciotomies performed to bilateral lower extremities secondary to life- threatening and limb threatening infection; this was previously performed at [facility]. He continues to follow with Dr. Gilbert for his right knee ulcer. He denies chills, fever or otherwise feeling of unwell. He presents today with his . He still refuses advanced wound care product application. He refuses hyperbaric oxygen therapy treatment. He elects to proceed with a palliative care plan because he is refusing the other treatment recommendations. He is with his today. He is trying to keep pressure off this ulcer sites. Progress of Wound: Stable all - Physical Exam Vital Signs Temp Pulse Resp BP 97.3 F L 84 18 128/86 H 04/12/19 08:10 04/12/19 08:10 04/12/19 08:10 04/12/19 08:10 General: Alert, Oriented x3, Cooperative, No apparent distress Extremities: No cyanosis, Capillary Refill Less than 3 Seconds, No Calf T enderness, Diminished Peripheral Pulses, Edema - Mild Skin: Ulcer/ Wound - No purulence, erythema, streaking, odor, or infection. Devitalized tendon noted to right posterior leg ulcer site which was debrided Wound Measurements and Assessment WC - Nurse 1 - General Ulcer Measurement Start: 03/29/19 08:16 Freq: Status: Active Protocol: Activity Type Activity Date Activity User E-Sign Co-Sign Detail Recorded Client Recorded Date Recorded By Document 04/12/19 08:10 DL [id number] 04/12/19 08:29 DL 04/12/19 08:10 Wound Center Nurse 1 [Ulcer Assessment] #11 RIGHT MEDIAL FOOT -Current Size (cm) - Length 12 -Current Size (cm) - Width 1.5 -Current Size (cm) - Depth 0.2 -Total Square Cm 18.0 -Photo Taken No -Exudate Amt Small -Exudate Type Yellow/Green -Wound Margin Thickened -Granulation Amt Medium (34-66%) -Granulation Quality Red -Necrosis Amt Medium (34-66%) -Necrotic Tissue Type Adherent Slough -Structure Exposed N/A -Texture (Lisa-wound Skin Appearance) Scarring -Moisture (Lisa-wound Skin Appearance Dry/Scaly ) -Color (Lisa-wound Skin Appearance) Hemosiderin Staining -Temperature (Lisa-wound Skin No Abnormality Appearance) (Pt Warm) -Tenderness on Palpation (Lisa-wound No Skin Appearance) -Ulcer Cleansing Wound Cleanser -Foul Odor after Cleansing No -Anesthetic Used 4% Lidocaine Solution #8 r Knee -Current Size (cm) - Length 0.7 -Current Size (cm) - Width 0.6 -Current Size (cm) - Depth 0.2 -Total Square Cm 0.42 -Photo Taken No -Exudate Amt None Present -Wound Margin Distinct, Outline Attached -Granulation Amt Large (67-100%) -Granulation Quality [place] -Necrosis Amt None Present (0 %) -Structure Exposed N/A -Texture (Lisa-wound Skin Appearance) Scarring -Moisture (Lisa-wound Skin Appearance Dry/Scaly ) -Color (Lisa-wound Skin Appearance) Hemosiderin Staining -Temperature (Lisa-wound Skin No Abnormality Appearance) (Pt Warm) -Tenderness on Palpation (Lisa-wound No Skin Appearance) -Ulcer Cleansing Wound Cleanser -Foul Odor after Cleansing No -Anesthetic Used 4% Lidocaine Solution #6 L Post -Current Size (cm) - Length 14.5 -Current Size (cm) - Width 1.8 -Current Size (cm) - Depth 0.4 -Total Square Cm 26.10 -Photo Taken No -Exudate Amt Small -Exudate Type Yellow/Green -Wound Margin Distinct, Outline Attached -Granulation Amt Small (1-33%) -Granulation Quality [place] -Necrosis Amt Large (67-100%) -Necrotic Tissue Type Adherent Slough -Structure Exposed N/A -Texture (Lisa-wound Skin Appearance) Scarring -Moisture (Lisa-wound Skin Appearance Dry/Scaly ) -Color (Lisa-wound Skin Appearance) Hemosiderin Staining -Temperature (Lisa-wound Skin No Abnormality Appearance) (Pt Warm) -Tenderness on Palpation (Lisa-wound No Skin Appearance) -Ulcer Cleansing Wound Cleanser -Foul Odor after Cleansing No -Anesthetic Used 4% Lidocaine Solution #5 R Lat LE -Current Size (cm) - Length 1.5 -Current Size (cm) - Width 1.4 -Current Size (cm) - Depth 0.2 -Total Square Cm 2.10 -Photo Taken No -Exudate Amt Small -Exudate Type Yellow/Green -Wound Margin Distinct, Outline Attached -Granulation Amt Medium (34-66%) -Granulation Quality [place] Red -Necrosis Amt Medium (34-66%) -Necrotic Tissue Type Adherent Slough -Structure Exposed N/A -Texture (Lisa-wound Skin Appearance) Scarring -Moisture (Lisa-wound Skin Appearance Dry/Scaly ) -Color (Lisa-wound Skin Appearance) Hemosiderin Staining -Temperature (Lisa-wound Skin No Abnormality Appearance) (Pt Warm) -Tenderness on Palpation (Lisa-wound No Skin Appearance) -Ulcer Cleansing Wound Cleanser -Foul Odor after Cleansing No -Anesthetic Used 4% Lidocaine Solution #4 R post LE -Current Size (cm) - Length 3.6 -Current Size (cm) - Width 2.1 -Current Size (cm) - Depth 0.5 -Total Square Cm 7.56 -Photo Taken No -Exudate Amt Small -Exudate Type Yellow/Green -Wound Margin Distinct, Outline Attached -Granulation Amt Medium (34-66%) -Granulation Quality Red -Necrosis Amt Medium (34-66%) -Necrotic Tissue Type Adherent Slough -Structure Exposed N/A -Texture (Lisa-wound Skin Appearance) Scarring -Moisture (Lisa-wound Skin Appearance Dry/Scaly ) -Color (Lisa-wound Skin Appearance) Hemosiderin Staining -Temperature (Lisa-wound Skin No Abnormality Appearance) (Pt Warm) -Tenderness on Palpation (Lisa-wound No Skin Appearance) -Ulcer Cleansing Wound Cleanser -Foul Odor after Cleansing No -Anesthetic Used 4% Lidocaine Solution #3 R Med LE -Current Size (cm) - Length 0.1 -Current Size (cm) - Width 0.1 -Current Size (cm) - Depth 0.1 -Total Square Cm 0.01 -Photo Taken No -Exudate Amt None Present -Exudate Type Yellow/Green -Wound Margin Distinct, Outline Attached -Granulation Amt None Present (0 %) -Granulation Quality [place] -Necrosis Amt Large (67-100%) -Necrotic Tissue Type Eschar -Structure Exposed N/A -Texture (Lisa-wound Skin Appearance) Scarring -Moisture (Lisa-wound Skin Appearance Dry/Scaly ) -Color (Lisa-wound Skin Appearance) Hemosiderin Staining -Temperature (Lisa-wound Skin No Abnormality Appearance) (Pt Warm) -Tenderness on Palpation (Lisa-wound No Skin Appearance) -Ulcer Cleansing Wound Cleanser -Foul Odor after Cleansing No -Anesthetic Used 4% Lidocaine Solution #2 R [place] Cluster -Current Size (cm) - Length 9.9 -Current Size (cm) - Width 1.5 -Current Size (cm) - Depth 0.2 -Total Square Cm 14.85 -Photo Taken No -Exudate Amt Small -Exudate Type Serosanguineous -Wound Margin Thickened -Granulation Amt Medium (34-66%) -Granulation Quality Red -Necrosis Amt Medium (34-66%) -Necrotic Tissue Type Adherent Slough -Structure Exposed N/A -Texture (Lisa-wound Skin Appearance) Scarring -Moisture (Lisa-wound Skin Appearance Dry/Scaly ) -Color (Lisa-wound Skin Appearance) Hemosiderin Staining -Temperature (Lisa-wound Skin No Abnormality Appearance) (Pt Warm) -Tenderness on Palpation (Lias-wound No Skin Appearance) -Ulcer Cleansing Wound Cleanser -Foul Odor after Cleansing No -Anesthetic Used 4% Lidocaine Solution #1 R 2nd toe amp -Current Size (cm) - Length 1.3 -Current Size (cm) - Width 0.2 -Current Size (cm) - Depth 0.5 -Total Square Cm 0.26 -Photo Taken No -Exudate Amt Small -Exudate Type Serosanguineous -Wound Margin Thickened -Granulation Amt Small (1-33%) -Granulation Quality Red -Necrosis Amt Small (1-33%) -Necrotic Tissue Type Adherent Slough -Structure Exposed N/A -Texture (Lisa-wound Skin Appearance) Scarring -Moisture (Lisa-wound Skin Appearance Dry/Scaly ) -Color (Lisa-wound Skin Appearance) No Abnormality -Temperature (Lisa-wound Skin No Abnormality Appearance) (Pt Warm) -Tenderness on Palpation (Lisa-wound No Skin Appearance) -Ulcer Cleansing Wound Cleanser -Foul Odor after Cleansing No -Anesthetic Used 4% Lidocaine Solution [Edema Assessment] -Right Calf (cm) 35.4 -Right Ankle (cm) 20.7 -Left Calf (cm) 34.5 -Left Ankle (cm) 20.8 WC - Nurse 2 - General Ulcer CM Notes Start: 03/29/19 08:16 Freq: Status: Active Protocol: Activity Type Activity Date Activity User E-Sign Co-Sign Detail Recorded Client Recorded Date Recorded By Document 04/12/19 08:38 MW [id number] 04/12/19 08:40 MW Document 04/12/19 08:45 AN [id number] 04/12/19 08:57 AN 04/12/19 04/12/19 08:38 08:45 Wound Center Nurse 2 [Procedure/Treatment] #11 RIGHT MEDIAL FOOT -Time 08:53 -Correct Patient Yes -Correct Side, Site, Position Yes -Correct Procedure Yes -Procedure Performed Yes -Type of Procedure Debridement -Clinical Debridement Subcutaneous -Post Debridement Size (cm) - Length 12.1 -Post Debridement Size (cm) - Width 1.6 -Post Debridement Size (cm) - Depth 0.2 -Total Square Cm 19.36 -Wound/Ulcer Outcome Not Healed -Treatment Response Procedure Tolerated Well #8 r Knee -Time 08:38 -Correct Patient Yes -Correct Side, Site, Position Yes -Correct Procedure Yes -Procedure Performed Yes -Type of Procedure Debridement -Clinical Debridement Subcutaneous -Post Debridement Size (cm) - Length 0.4 -Post Debridement Size (cm) - Width 0.1 -Post Debridement Size (cm) - Depth 0.2 -Total Square Cm 0.04 -Wound/Ulcer Outcome Not Healed -Ulcer Cleansing Rinsed/ Irrigated with Saline -Foul Odor after Cleansing No -Bioengineered Tissue No -Bleeding Controlled with Pressure -Offloading No -Treatment Response Procedure Tolerated Well #6 L Post -Time 08:53 -Correct Patient Yes -Correct Side, Site, Position Yes -Correct Procedure Yes -Procedure Performed Yes -Type of Procedure Debridement -Clinical Debridement Subcutaneous -Post Debridement Size (cm) - Length 14.6 -Post Debridement Size (cm) - Width 1.9 -Post Debridement Size (cm) - Depth 0.4 -Total Square Cm 27.74 -Wound/Ulcer Outcome Not Healed -Treatment Response Procedure Tolerated Well #5 R Lat LE -Time 08:54 -Correct Patient Yes -Correct Side, Site, Position Yes -Correct Procedure Yes -Procedure Performed Yes -Type of Procedure Debridement -Clinical Debridement Subcutaneous -Post Debridement Size (cm) - Length 1.6 -Post Debridement Size (cm) - Width 1.5 -Post Debridement Size (cm) - Depth 0.2 -Total Square Cm 2.40 -Wound/Ulcer Outcome Not Healed -Bleeding Controlled with Pressure -Treatment Response Procedure Tolerated Well #4 R post LE -Time 08:54 -Correct Patient Yes -Correct Side, Site, Position Yes -Correct Procedure Yes -Procedure Performed Yes -Type of Procedure Debridement -Clinical Debridement Muscle -Post Debridement Size (cm) - Length 3.7 -Post Debridement Size (cm) - Width 2.2 -Post Debridement Size (cm) - Depth 0.5 -Total Square Cm 8.14 -Wound/Ulcer Outcome Not Healed -Bleeding Controlled with Pressure -Treatment Response Procedure Tolerated Well #3 R Med LE -Time 08:54 -Correct Patient Yes -Correct Side, Site, Position Yes -Correct Procedure Yes -Procedure Performed Yes -Type of Procedure Debridement -Clinical Debridement Subcutaneous -Post Debridement Size (cm) - Length 0.2 -Post Debridement Size (cm) - Width 0.2 -Post Debridement Size (cm) - Depth 0.1 -Total Square Cm 0.04 -Wound/Ulcer Outcome Not Healed -Bleeding Controlled with Pressure #2 R [place] Cluster -Time 08:55 -Correct Patient Yes -Correct Side, Site, Position Yes -Correct Procedure Yes -Procedure Performed Yes -Type of Procedure Debridement -Clinical Debridement Subcutaneous -Post Debridement Size (cm) - Length 10 -Post Debridement Size (cm) - Width 1.6 -Post Debridement Size (cm) - Depth 0.2 -Total Square Cm 16.0 -Wound/Ulcer Outcome Not Healed -Bleeding Controlled with Pressure -Treatment Response Procedure Tolerated Well #1 R 2nd toe amp -Time 08:56 -Correct Patient Yes -Correct Side, Site, Position Yes -Correct Procedure Yes -Procedure Performed Yes -Type of Procedure Debridement -Clinical Debridement Subcutaneous -Post Debridement Size (cm) - Length 1.4 -Post Debridement Size (cm) - Width 0.4 -Post Debridement Size (cm) - Depth 0.5 -Total Square Cm 0.56 -Wound/Ulcer Outcome Not Healed -Bleeding Controlled with Pressure -Treatment Response Procedure Tolerated Well [See Physician Procedure note for Specifics] Pain Scale: 0-10 Numeric [Pain] -Is Patient Pain Free? Yes Musculoskeletal: No Tenderness to Palpation of Joints or Extremities, Muscle Wasting Neurological: - - Lack of sensation light touch Psych/Mental Status: Normal Affect, Appropriate Debridement Note Post-Debridement Measurements/Treatment WC - Nurse 2 - General Ulcer CM Notes Start: 03/29/19 08:16 Freq: Status: Active Protocol: Activity Type Activity Date Activity User E-Sign Co-Sign Detail Recorded Client Recorded Date Recorded By Document 03/29/19 08:57 AN [id number] 03/29/19 09:05 AN Document 03/29/19 14:27 MW [id number] 03/29/19 14:29 MW Document 04/12/19 08:38 MW [id number] 04/12/19 08:40 MW Document 04/12/19 08:45 AN [id number] 04/12/19 08:57 AN 03/29/19 03/29/19 04/12/19 08:57 14:27 08:38 Wound Center Nurse 2 #12 left plantar -Time 08:58 -Correct Patient Yes -Correct Side, Site, Position Yes -Correct Procedure Yes -Procedure Performed Yes -Type of Procedure Debridement -Clinical Debridement Subcutaneous -Post Debridement Size (cm) - Length 0.2 -Post Debridement Size (cm) - Width 0.2 -Post Debridement Size (cm) - Depth 0.1 -Total Square Cm 0.04 #11 RIGHT MEDIAL FOOT -Time 08:58 -Correct Patient Yes -Correct Side, Site, Position Yes -Correct Procedure Yes -Procedure Performed Yes -Type of Procedure Debridement -Clinical Debridement Subcutaneous -Post Debridement Size (cm) - Length 13.1 -Post Debridement Size (cm) - Width 0.3 -Post Debridement Size (cm) - Depth 0.4 -Total Square Cm 3.93 -Wound/Ulcer Outcome Not Healed -Ulcer Cleansing Rinsed/ Irrigated with Saline -Foul Odor after Cleansing No -Bioengineered Tissue No -Bleeding Controlled with Pressure -Offloading No -Treatment Response Procedure Tolerated Well #8 r Knee -Time 09:30 08:38 -Correct Patient Yes Yes -Correct Side, Site, Position Yes Yes -Correct Procedure Yes Yes -Procedure Performed Yes Yes -Type of Procedure Debridement Debridement -Clinical Debridement Subcutaneous Subcutaneous -Post Debridement Size (cm) - Length 0.5 0.4 -Post Debridement Size (cm) - Width 0.2 0.1 -Post Debridement Size (cm) - Depth 0.2 0.2 -Total Square Cm 0.10 0.04 -Wound/Ulcer Outcome Not Healed Not Healed -Ulcer Cleansing Rinsed/ Irrigated with Saline -Foul Odor after Cleansing No -Bioengineered Tissue No -Bleeding Controlled with Pressure -Offloading No -Treatment Response Procedure Tolerated Well #6 L Post -Time 08:59 -Correct Patient Yes -Correct Side, Site, Position Yes -Correct Procedure Yes -Procedure Performed Yes -Type of Procedure Debridement -Clinical Debridement Subcutaneous -Post Debridement Size (cm) - Length 21.6 -Post Debridement Size (cm) - Width 1.9 -Post Debridement Size (cm) - Depth 0.3 -Total Square Cm 41.04 -Wound/Ulcer Outcome Not Healed -Ulcer Cleansing Rinsed/ Irrigated with Saline -Foul Odor after Cleansing No -Bioengineered Tissue No -Bleeding Controlled with Pressure -Offloading No -Treatment Response Procedure Tolerated Well #5 R Lat LE -Time 08:59 -Correct Patient Yes -Correct Side, Site, Position Yes -Correct Procedure Yes -Procedure Performed Yes -Type of Procedure Debridement -Clinical Debridement Subcutaneous -Post Debridement Size (cm) - Length 0.2 -Post Debridement Size (cm) - Width 0.2 -Post Debridement Size (cm) - Depth 0.3 -Total Square Cm 0.04 -Wound/Ulcer Outcome Not Healed -Foul Odor after Cleansing No -Bioengineered Tissue No -Bleeding Controlled with Pressure -Offloading No -Treatment Response Procedure Tolerated Well #4 R post LE -Time 09:00 -Correct Patient Yes -Correct Side, Site, Position Yes -Correct Procedure Yes -Procedure Performed Yes -Type of Procedure Debridement -Clinical Debridement Subcutaneous -Post Debridement Size (cm) - Length 0.9 -Post Debridement Size (cm) - Width 2.6 -Post Debridement Size (cm) - Depth 0.2 -Total Square Cm 2.34 -Wound/Ulcer Outcome Not Healed -Ulcer Cleansing Rinsed/ Irrigated with Saline -Foul Odor after Cleansing No -Bioengineered Tissue No -Bleeding Controlled with Pressure -Offloading No -Treatment Response Procedure Tolerated Well #3 R Med LE -Time 09:00 -Correct Patient Yes -Correct Side, Site, Position Yes -Correct Procedure Yes -Procedure Performed Yes -Type of Procedure Debridement -Clinical Debridement Subcutaneous -Post Debridement Size (cm) - Length 0.2 -Post Debridement Size (cm) - Width 0.2 -Post Debridement Size (cm) - Depth 0.1 -Total Square Cm 0.04 -Wound/Ulcer Outcome Not Healed -Ulcer Cleansing Rinsed/ Irrigated with Saline -Foul Odor after Cleansing No -Bioengineered Tissue No -Bleeding Controlled with Pressure -Offloading No -Treatment Response Procedure Tolerated Well #2 R [place] Cluster -Time 09:00 -Correct Patient Yes -Correct Side, Site, Position Yes -Correct Procedure Yes -Procedure Performed Yes -Type of Procedure Debridement -Clinical Debridement Subcutaneous -Post Debridement Size (cm) - Length 10.6 -Post Debridement Size (cm) - Width 2.6 -Post Debridement Size (cm) - Depth 0.2 -Total Square Cm 27.56 -Wound/Ulcer Outcome Not Healed -Ulcer Cleansing Rinsed/ Irrigated with Saline -Foul Odor after Cleansing No -Bioengineered Tissue No -Bleeding Controlled with Pressure -Offloading No -Treatment Response Procedure Tolerated Well #1 R 2nd toe amp -Time 09:01 -Correct Patient Yes -Correct Side, Site, Position Yes -Correct Procedure Yes -Procedure Performed Yes -Type of Procedure Debridement -Clinical Debridement Subcutaneous -Post Debridement Size (cm) - Length 1.6 -Post Debridement Size (cm) - Width 0.5 -Post Debridement Size (cm) - Depth 0.3 -Total Square Cm 0.80 -Wound/Ulcer Outcome Not Healed -Ulcer Cleansing Rinsed/ Irrigated with Saline -Foul Odor after Cleansing No -Bioengineered Tissue No -Bleeding Controlled with Pressure -Offloading No -Treatment Response Procedure Tolerated Well Pain Scale: 0-10 Numeric Is Patient Pain Free? Yes 04/12/19 08:45 Wound Center Nurse 2 #12 left plantar -Time -Correct Patient -Correct Side, Site, Position -Correct Procedure -Procedure Performed -Type of Procedure -Clinical Debridement -Post Debridement Size (cm) - Length -Post Debridement Size (cm) - Width -Post Debridement Size (cm) - Depth -Total Square Cm #11 RIGHT MEDIAL FOOT -Time 08:53 -Correct Patient Yes -Correct Side, Site, Position Yes -Correct Procedure Yes -Procedure Performed Yes -Type of Procedure Debridement -Clinical Debridement Subcutaneous -Post Debridement Size (cm) - Length 12.1 -Post Debridement Size (cm) - Width 1.6 -Post Debridement Size (cm) - Depth 0.2 -Total Square Cm 19.36 -Wound/Ulcer Outcome Not Healed -Ulcer Cleansing -Foul Odor after Cleansing -Bioengineered Tissue -Bleeding Controlled with -Offloading -Treatment Response Procedure Tolerated Well #8 r Knee -Time -Correct Patient -Correct Side, Site, Position -Correct Procedure -Procedure Performed -Type of Procedure -Clinical Debridement -Post Debridement Size (cm) - Length -Post Debridement Size (cm) - Width -Post Debridement Size (cm) - Depth -Total Square Cm -Wound/Ulcer Outcome -Ulcer Cleansing -Foul Odor after Cleansing -Bioengineered Tissue -Bleeding Controlled with -Offloading -Treatment Response #6 L Post -Time 08:53 -Correct Patient Yes -Correct Side, Site, Position Yes -Correct Procedure Yes -Procedure Performed Yes -Type of Procedure Debridement -Clinical Debridement Subcutaneous -Post Debridement Size (cm) - Length 14.6 -Post Debridement Size (cm) - Width 1.9 -Post Debridement Size (cm) - Depth 0.4 -Total Square Cm 27.74 -Wound/Ulcer Outcome Not Healed -Ulcer Cleansing -Foul Odor after Cleansing -Bioengineered Tissue -Bleeding Controlled with -Offloading -Treatment Response Procedure Tolerated Well #5 R Lat LE -Time 08:54 -Correct Patient Yes -Correct Side, Site, Position Yes -Correct Procedure Yes -Procedure Performed Yes -Type of Procedure Debridement -Clinical Debridement Subcutaneous -Post Debridement Size (cm) - Length 1.6 -Post Debridement Size (cm) - Width 1.5 -Post Debridement Size (cm) - Depth 0.2 -Total Square Cm 2.40 -Wound/Ulcer Outcome Not Healed -Foul Odor after Cleansing -Bioengineered Tissue -Bleeding Controlled with Pressure -Offloading -Treatment Response Procedure Tolerated Well #4 R post LE -Time 08:54 -Correct Patient Yes -Correct Side, Site, Position Yes -Correct Procedure Yes -Procedure Performed Yes -Type of Procedure Debridement -Clinical Debridement Muscle -Post Debridement Size (cm) - Length 3.7 -Post Debridement Size (cm) - Width 2.2 -Post Debridement Size (cm) - Depth 0.5 -Total Square Cm 8.14 -Wound/Ulcer Outcome Not Healed -Ulcer Cleansing -Foul Odor after Cleansing -Bioengineered Tissue -Bleeding Controlled with Pressure -Offloading -Treatment Response Procedure Tolerated Well #3 R Med LE -Time 08:54 -Correct Patient Yes -Correct Side, Site, Position Yes -Correct Procedure Yes -Procedure Performed Yes -Type of Procedure Debridement -Clinical Debridement Subcutaneous -Post Debridement Size (cm) - Length 0.2 -Post Debridement Size (cm) - Width 0.2 -Post Debridement Size (cm) - Depth 0.1 -Total Square Cm 0.04 -Wound/Ulcer Outcome Not Healed -Ulcer Cleansing -Foul Odor after Cleansing -Bioengineered Tissue -Bleeding Controlled with Pressure -Offloading -Treatment Response #2 R [place] Cluster -Time 08:55 -Correct Patient Yes -Correct Side, Site, Position Yes -Correct Procedure Yes -Procedure Performed Yes -Type of Procedure Debridement -Clinical Debridement Subcutaneous -Post Debridement Size (cm) - Length 10 -Post Debridement Size (cm) - Width 1.6 -Post Debridement Size (cm) - Depth 0.2 -Total Square Cm 16.0 -Wound/Ulcer Outcome Not Healed -Ulcer Cleansing -Foul Odor after Cleansing -Bioengineered Tissue -Bleeding Controlled with Pressure -Offloading -Treatment Response Procedure Tolerated Well #1 R 2nd toe amp -Time 08:56 -Correct Patient Yes -Correct Side, Site, Position Yes -Correct Procedure Yes -Procedure Performed Yes -Type of Procedure Debridement -Clinical Debridement Subcutaneous -Post Debridement Size (cm) - Length 1.4 -Post Debridement Size (cm) - Width 0.4 -Post Debridement Size (cm) - Depth 0.5 -Total Square Cm 0.56 -Wound/Ulcer Outcome Not Healed -Ulcer Cleansing -Foul Odor after Cleansing -Bioengineered Tissue -Bleeding Controlled with Pressure -Offloading -Treatment Response Procedure Tolerated Well Pain Scale: 0-10 Numeric Is Patient Pain Free? Yes Wound debrided: posterior leg Laterality: Right Wound Grade/Stage: grade 2 Type of Debridement: Excisional debridement Anesthesia Used: 5% Lidocaine Gel Depth: in the subcutaneous layer Percentage of wound debrided: 100 Instrument Used: #15 blade, Forceps Tissue Removed: fibrous, devitalized subcutaneous, biofilm, slough Severity: Fat Layer Exposed Amount of bleeding with debridement: Mild Bleeding Controlled with: Pressure Patient tolerated procedure well - Additional Wound Wound debrided: medial leg Laterality: Right Wound Grade/Stage: grade 1 Type of Debridement: Excisional debridement Anesthesia Used: 5% Lidocaine Gel Depth: in the subcutaneous layer Percentage of wound debrided: 100 Instrument Used: #15 blade Tissue Removed: fibrous, devitalized subcutaneous, biofilm, slough Severity: Fat Layer Exposed Amount of bleeding with debridement: Mild Bleeding Controlled with: Pressure Patient tolerated procedure: Patient tolerated procedure well - Additional Wound Wound debrided: lateral leg Laterality: Right Wound Grade/Stage: grade 1 Type of Debridement: Excisional debridement Anesthesia Used: 5% Lidocaine Gel Depth: in the subcutaneous layer Percentage of wound debrided: 100 Instrument Used: #15 blade Tissue Removed: fibrous, devitalized subcutaneous, biofilm, slough Severity: Fat Layer Exposed Amount of bleeding with debridement: Mild Bleeding Controlled with: Pressure Patient tolerated procedure: Patient tolerated procedure well - Additional Wound Wound debrided: anterior leg Laterality: Right Wound Grade/Stage: grade 1 Type of Debridement: Excisional debridement Anesthesia Used: 5% Lidocaine Gel Depth: in the subcutaneous layer Percentage of wound debrided: 100 Instrument Used: #15 blade Tissue Removed: fibrous, devitalized subcutaneous, biofilm, slough Severity: Fat Layer Exposed Amount of bleeding with debridement: Mild Bleeding Controlled with: Pressure Patient tolerated procedure: Patient tolerated procedure well - Additional Wound Wound debrided: forefoot Laterality: Right Wound Grade/Stage: grade 3 Type of Debridement: Excisional debridement Anesthesia Used: 5% Lidocaine Gel Depth: in the subcutaneous layer Percentage of wound debrided: 100 Instrument Used: #15 blade Tissue Removed: fibrous, devitalized subcutaneous, biofilm, slough Severity: Fat Layer Exposed Amount of bleeding with debridement: Mild Bleeding Controlled with: Pressure Patient tolerated procedure: Patient tolerated procedure well - Additional Wound Wound debrided: medial foot/ankle Laterality: Right - g Wound Grade/Stage: grade 1 Type of Debridement: Excisional debridement Anesthesia Used: 5% Lidocaine Gel Depth: in the subcutaneous layer Percentage of wound debrided: 100 Instrument Used: #15 blade Tissue Removed: fibrous, devitalized subcutaneous, biofilm, slough Severity: Fat Layer Exposed Amount of bleeding with debridement: Mild Bleeding Controlled with: Pressure Patient tolerated procedure: Patient tolerated procedure well - Additional Wound Wound debrided: posterior leg Laterality: Left Wound Grade/Stage: grade 2 Type of Debridement: Excisional debridement Anesthesia Used: 5% Lidocaine Gel Depth: in the subcutaneous layer Percentage of wound debrided: 100 Instrument Used: #15 blade Tissue Removed: fibrous, devitalized subcutaneous, biofilm, slough Severity: Fat Layer Exposed Amount of bleeding with debridement: Mild Bleeding Controlled with: Pressure Patient tolerated procedure: Patient tolerated procedure well Assessment/Plan Active Problems (Last Updated 09/28/18 @ 12:41 by Geraldine Steele) Ulcer of right foot with fat layer exposed (Chronic) 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) 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 (Acute) Delayed wound healing (Chronic) 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) Ulcer of right lower extremity with fat layer exposed (Chronic) Ulcer of left lower extremity with fat layer exposed (Chronic) 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) Type 2 diabetes mellitus with diabetic polyneuropathy (Chronic) Localized edema (Chronic) Malnutrition (Chronic) Assessment: Open second and third ray resection secondary to 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 Diabetic neuropathy. Malnutrition suspected. 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 Delayed healing. Gait impairment and fall risk. Other comorbidities, right knee ulcer Plan: I reviewed and discussed his case today. He was reassured no infections are noted. Debridement done as documented above in the nursing clinical panel. Procedure was well-tolerated. Continue hydrogel and Adaptic; to change daily due to the reported dryness. His continued tendon exposure to the posterior bilateral legs is noted in the gave him a prescription for an offloading donut pillow. He relates he has been using this. He understands he may need to also prop his heels up on a pillow as long as is not causing any new pressure changes to those sites. Elevate lower extremities when seated and in bed. Continue increased protein intake. I recommend he avoids laying directly on his wounds to reduce pressure, and I was concerned about his perfusion to his limbs. He had an arterial Doppler scheduled with Dr. Morgan's staff on August 02, 2018 and overall perfusion was confirmed; additional intervention or workup was not recommended. It is also noted that he did have venous Doppler performed with reflux evaluation. He did not have evidence of deep venous thrombosis or venous insufficiency at that time; the vessels were compressible. To continue with nutritional supplementation optimize healing; I recommend Juan. I recommend he sustained from smoking and alcohol activities to optimize healing as well. His workup for vasculitis and underlying autoimmune disorder is also pending. A punch biopsy was sent during his last surgical intervention on June 10 and this demonstrated inflammatory changes without malignancy. He had initial screening labs and so far he has a negative RA titer, HL of the 27, KEVIN, anti-CCP, and rheumatoid factor. Several his antibody screenings were not reportable. Hyperbaric oxygen therapy was recommended and it is noted his ejection fraction was most recently 50%. He refuses at this time. Dr. Gilbert continues to manage his right knee ulcer including debridements and traditional wound care plan. He refuses surgical intervention at this time to bilateral lower extremities. I answered all of his questions. Additional amputation of the right foot is not planned due to his fairly nonambulatory status. Smoking cessation was strongly recommended and is imperative to optimize healing. He reports he is cutting back. I recommend further follow-up at the wound care center 2 week with me, or call sooner if he has any questions. Compliance at this advanced wound care center was reviewed. He understands additional palliative care programs are an option if he does not wish to proceed with advanced wound care opportunities that has been recommended. 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
== END 2019-04-21 23:59 ==
LOC: WC 08:00
PROVIDERS: Family Provider Family Medicine; PCP Family Medicine; Visit Provider Podiatrist
DX: E11.622 Type 2 diabetes mellitus with other skin ulcer (principal); E11.621 Type 2 diabetes mellitus with foot ulcer; L97.812 Non-pressure chronic ulcer of other part of right lower leg with fat layer exposed; L97.822 Non-pressure chronic ulcer of other part of left lower leg with fat layer exposed; F17.210 Nicotine dependence, cigarettes, uncomplicated; E11.42 Type 2 diabetes mellitus with diabetic polyneuropathy; L97.512 Non-pressure chronic ulcer of other part of right foot with fat layer exposed; R60.0 Localized edema
CPT/HCPCS: 11042; 11043; 11045

== ENCOUNTER 2019-05-17 08:00 | Outpatient (RCR) | payer MEDICARE, SELFPAY ==
[2019-04-22 00:45] VITALS: BP 128/86; PULSE 84; RESP 18; TEMP 36.3
[2019-04-26 08:11] VITALS: BP 133/86; PULSE 96; RESP 18; TEMP 36.3
--- NOTE | 2019-04-26 09:35 | PCM.WC.PN ---
(1) Skin ulcer of right knee with fat layer exposed Status: Chronic Current Visit: Yes Code(s): L97.812 - Non-pressure chronic ulcer of other part of right lower leg with fat layer exposed (2) Tobacco dependence due to cigarettes Status: Chronic Current Visit: Yes Code(s): F17.210 - Nicotine dependence, cigarettes, uncomplicated (3) Type 2 diabetes mellitus with diabetic polyneuropathy Status: Chronic Current Visit: Yes Code(s): E11.42 - Type 2 diabetes mellitus with diabetic polyneuropathy Type of Wound Chief Complaint: right and left Leg ulcers and right foot ulcers History of Wound: Mr. Arguello is a 64-year-old male with multiple comorbidities follows up for delayed healing ulcers to the right and left foot as well as bilateral legs. It is noted he previously had widespread debridements and fasciotomies performed to bilateral lower extremities secondary to life-threatening and limb threatening infection; this was previously performed at [facility]. He continues to follow with Dr. Gilbert for his right knee ulcer. He denies chills, fever or otherwise feeling of unwell. He presents today with his . He still refuses advanced wound care product application. He refuses hyperbaric oxygen therapy treatment. He elects to proceed with a palliative care plan because he is refusing the other treatment recommendations. He is with his today. He is trying to keep pressure off this ulcer sites. Progress of Wound: Imporoving. No new concerns at this time. - Physical Exam Vital Signs Temp Pulse Resp BP 97.3 F L 96 18 133/86 H 04/26/19 08:11 04/26/19 08:11 04/26/19 08:11 04/26/19 08:11 General: Alert, Oriented x3, Cooperative, No apparent distress HEENT: Atraumatic Oral: Moist Mucosa Neck: Supple Lungs: Normal air movement Extremities: No cyanosis Skin: Ulcer/ Wound Wound Measurements and Assessment WC - Nurse 1 - General Ulcer Measurement Start: 04/26/19 08:11 Freq: Status: Active Protocol: Activity Type Activity Date Activity User E-Sign Co-Sign Detail Recorded Client Recorded Date Recorded By Document 04/26/19 08:11 DL [id number] 04/26/19 08:28 DL 04/26/19 08:11 Wound Center Nurse 1 [Ulcer Assessment] #11 RIGHT MEDIAL FOOT -Combined with other wound No -Current Size (cm) - Length 12.0 -Current Size (cm) - Width 1.8 -Current Size (cm) - Depth 0.6 -Total Square Cm 21.60 -Photo Taken No -Epithelialization Small 1-33% -Tunneling No -Undermining/Tunneling No -Circular Undermining No -Exudate Amt Small -Exudate Type Serosanguineous -Wound Margin Flat & Intact -Granulation Amt Medium (34-66%) -Granulation Quality [place] -Slough/Fibrin Yes -Necrosis Amt Medium (34-66%) -Necrotic Tissue Type Adherent Slough -Structure Exposed N/A -Texture (Lisa-wound Skin Appearance) Assessed Localized Edema -Moisture (Lisa-wound Skin Appearance Assessed ) Dry/Scaly -Color (Lisa-wound Skin Appearance) Assessed -Temperature (Lisa-wound Skin No Abnormality Appearance) (Pt Warm) -Tenderness on Palpation (Lisa-wound No Skin Appearance) -Ulcer Cleansing Wound Cleanser -Foul Odor after Cleansing No -Anesthetic Used 4% Lidocaine Solution #8 r Knee -Combined with other wound No -Current Size (cm) - Length 0.6 -Current Size (cm) - Width 0.2 -Current Size (cm) - Depth 0.2 -Total Square Cm 0.12 -Photo Taken No -Epithelialization Small 1-33% -Tunneling No -Undermining/Tunneling No -Circular Undermining No -Exudate Amt None Present -Granulation Amt None Present (0 %) -Slough/Fibrin Yes -Necrosis Amt Large (67-100%) -Necrotic Tissue Type Adherent Slough -Structure Exposed N/A -Texture (Lisa-wound Skin Appearance) Assessed -Moisture (Lisa-wound Skin Appearance Assessed ) Dry/Scaly -Color (Lisa-wound Skin Appearance) Assessed -Temperature (Lisa-wound Skin No Abnormality Appearance) (Pt Warm) -Tenderness on Palpation (Lisa-wound No Skin Appearance) -Ulcer Cleansing Rinsed/ Irrigated with Saline -Foul Odor after Cleansing No -Anesthetic Used 4% Lidocaine Solution #6 L Post -Combined with other wound No -Current Size (cm) - Length 20.2 -Current Size (cm) - Width 1.8 -Current Size (cm) - Depth 0.4 -Total Square Cm 36.36 -Photo Taken No -Epithelialization Small 1-33% -Tunneling No -Undermining/Tunneling No -Circular Undermining No -Exudate Amt Small -Exudate Type Serosanguineous -Wound Margin Flat & Intact -Granulation Amt Medium (34-66%) -Granulation Quality [place] -Slough/Fibrin Yes -Necrosis Amt Medium (34-66%) -Necrotic Tissue Type Adherent Slough -Structure Exposed N/A -Texture (Lisa-wound Skin Appearance) Assessed Scarring -Moisture (Lisa-wound Skin Appearance Assessed ) Dry/Scaly -Color (Lisa-wound Skin Appearance) Assessed -Temperature (Lisa-wound Skin No Abnormality Appearance) (Pt Warm) -Tenderness on Palpation (Lisa-wound No Skin Appearance) -Ulcer Cleansing Wound Cleanser -Foul Odor after Cleansing No -Anesthetic Used 4% Lidocaine Solution #5 R Lat LE -Combined with other wound No -Current Size (cm) - Length 1.5 -Current Size (cm) - Width 0.8 -Current Size (cm) - Depth 0.3 -Total Square Cm 1.20 -Photo Taken No -Epithelialization None Present -Tunneling No -Undermining/Tunneling No -Circular Undermining No -Exudate Amt None Present -Wound Margin Thickened -Granulation Amt None Present (0 %) -Slough/Fibrin Yes -Necrosis Amt Large (67-100%) -Necrotic Tissue Type Adherent Slough -Structure Exposed N/A -Texture (Lisa-wound Skin Appearance) Assessed -Moisture (Lisa-wound Skin Appearance Assessed ) Dry/Scaly -Color (Lisa-wound Skin Appearance) Assessed -Temperature (Lisa-wound Skin No Abnormality Appearance) (Pt Warm) -Tenderness on Palpation (Lisa-wound No Skin Appearance) -Ulcer Cleansing Wound Cleanser -Foul Odor after Cleansing No -Anesthetic Used 4% Lidocaine Solution #4 R post LE -Combined with other wound No -Photo Taken No -Epithelialization None Present -Tunneling No -Undermining/Tunneling Yes -Undermining/Tunneling Starts (O' 5 clock) -Undermining/Tunneling Ends (O'clock) 7 -Maximum Distance (cm) 0.4 -Circular Undermining No -Exudate Amt Small -Exudate Type Serosanguineous -Wound Margin Flat & Intact -Granulation Amt Small (1-33%) -Granulation Quality [place] -Slough/Fibrin Yes -Necrosis Amt Large (67-100%) -Necrotic Tissue Type Adherent Slough -Structure Exposed Tendon -Texture (Lisa-wound Skin Appearance) Assessed -Moisture (Lisa-wound Skin Appearance Assessed ) Maceration -Color (Lisa-wound Skin Appearance) Assessed -Temperature (Lisa-wound Skin No Abnormality Appearance) (Pt Warm) -Tenderness on Palpation (Lisa-wound No Skin Appearance) -Ulcer Cleansing Wound Cleanser -Foul Odor after Cleansing No -Anesthetic Used 4% Lidocaine Solution #3 R Med LE -Combined with other wound No -Current Size (cm) - Length 2 -Current Size (cm) - Width 0.8 -Current Size (cm) - Depth 0.1 -Total Square Cm 1.6 -Photo Taken No -Epithelialization None Present -Tunneling No -Undermining/Tunneling No -Circular Undermining No -Exudate Amt None Present -Wound Margin Flat & Intact -Granulation Amt None Present (0 %) -Slough/Fibrin Yes -Necrosis Amt Large (67-100%) -Necrotic Tissue Type Adherent Slough -Structure Exposed N/A -Texture (Lisa-wound Skin Appearance) Assessed -Moisture (Lisa-wound Skin Appearance Assessed ) Dry/Scaly -Color (Lisa-wound Skin Appearance) Assessed -Temperature (Lisa-wound Skin No Abnormality Appearance) (Pt Warm) -Tenderness on Palpation (Lisa-wound No Skin Appearance) -Ulcer Cleansing Wound Cleanser -Foul Odor after Cleansing No -Anesthetic Used 4% Lidocaine Solution #2 R [place] -Combined with other wound No -Current Size (cm) - Length 11.3 -Current Size (cm) - Width 1.8 -Current Size (cm) - Depth 0.2 -Total Square Cm 20.34 -Photo Taken No -Epithelialization None Present -Tunneling No -Undermining/Tunneling No -Circular Undermining No -Exudate Amt Small -Exudate Type Serosanguineous -Wound Margin Flat & Intact -Granulation Amt Medium (34-66%) -Granulation Quality [place] -Slough/Fibrin Yes -Necrosis Amt Medium (34-66%) -Necrotic Tissue Type Adherent Slough -Structure Exposed N/A -Texture (Lisa-wound Skin Appearance) Assessed Scarring -Moisture (Lisa-wound Skin Appearance Assessed ) Dry/Scaly -Color (Lisa-wound Skin Appearance) Assessed -Temperature (Lisa-wound Skin No Abnormality Appearance) (Pt Warm) -Tenderness on Palpation (Lisa-wound No Skin Appearance) -Ulcer Cleansing Wound Cleanser -Foul Odor after Cleansing No -Anesthetic Used 4% Lidocaine Solution #1 R 2nd toe amp -Combined with other wound No -Current Size (cm) - Length 1.5 -Current Size (cm) - Width 0.4 -Current Size (cm) - Depth 0.6 -Total Square Cm 0.60 -Photo Taken No -Epithelialization None Present -Tunneling No -Undermining/Tunneling No -Circular Undermining No -Exudate Amt Small -Exudate Type Serosanguineous -Wound Margin Flat & Intact -Granulation Amt Medium (34-66%) -Granulation Quality [place] -Slough/Fibrin Yes -Necrosis Amt Medium (34-66%) -Necrotic Tissue Type Adherent Slough -Structure Exposed N/A -Texture (Lisa-wound Skin Appearance) Assessed -Moisture (Lisa-wound Skin Appearance Assessed ) Dry/Scaly -Color (Lisa-wound Skin Appearance) Assessed -Temperature (Lisa-wound Skin No Abnormality Appearance) (Pt Warm) -Tenderness on Palpation (Lisa-wound No Skin Appearance) -Ulcer Cleansing Wound Cleanser -Foul Odor after Cleansing No -Anesthetic Used 4% Lidocaine Solution [Edema Assessment] -Lower Limb Edema Present No WC - Nurse 2 - General Ulcer CM Notes Start: 04/26/19 08:11 Freq: Status: Active Protocol: Activity Type Activity Date Activity User E-Sign Co-Sign Detail Recorded Client Recorded Date Recorded By Document 04/26/19 08:46 MW [id number] 04/26/19 08:48 MW Document 04/26/19 09:01 AN [id number] 04/26/19 09:10 AN 04/26/19 04/26/19 08:46 09:01 Wound Center Nurse 2 [Procedure/Treatment] #11 RIGHT MEDIAL FOOT -Time 09:04 -Correct Patient Yes -Correct Side, Site, Position Yes -Correct Procedure Yes -Procedure Performed Yes -Type of Procedure Debridement -Clinical Debridement Subcutaneous -Post Debridement Size (cm) - Length 12.1 -Post Debridement Size (cm) - Width 1.9 -Post Debridement Size (cm) - Depth 0.6 -Total Square Cm 22.99 -Wound/Ulcer Outcome Not Healed -Ulcer Cleansing Rinsed/ Irrigated with Saline -Bleeding Controlled with Pressure -Offloading Yes -Treatment Response Procedure Tolerated Well #8 r Knee -Time 08:47 -Correct Patient Yes -Correct Side, Site, Position Yes -Correct Procedure Yes -Procedure Performed Yes -Type of Procedure Debridement -Clinical Debridement Subcutaneous -Post Debridement Size (cm) - Length 0.4 -Post Debridement Size (cm) - Width 0.1 -Post Debridement Size (cm) - Depth 0.1 -Total Square Cm 0.04 -Wound/Ulcer Outcome Not Healed -Ulcer Cleansing Rinsed/ Irrigated with Saline -Foul Odor after Cleansing No -Bioengineered Tissue No -Bleeding Controlled with Pressure -Offloading No -Treatment Response Procedure Tolerated Well #6 L Post -Time 09:05 -Correct Patient Yes -Correct Side, Site, Position Yes -Correct Procedure Yes -Procedure Performed Yes -Type of Procedure Debridement -Clinical Debridement Subcutaneous -Post Debridement Size (cm) - Length 20.3 -Post Debridement Size (cm) - Width 1.9 -Post Debridement Size (cm) - Depth 0.4 -Total Square Cm 38.57 -Wound/Ulcer Outcome Not Healed -Ulcer Cleansing Rinsed/ Irrigated with Saline -Foul Odor after Cleansing No -Bioengineered Tissue No -Bleeding Controlled with Pressure -Offloading No -Treatment Response Procedure Tolerated Well #5 R Lat LE -Time 09:06 -Correct Patient Yes -Correct Side, Site, Position Yes -Correct Procedure Yes -Procedure Performed Yes -Type of Procedure Debridement -Clinical Debridement Subcutaneous -Post Debridement Size (cm) - Length 1.6 -Post Debridement Size (cm) - Width 0.9 -Post Debridement Size (cm) - Depth 0.3 -Total Square Cm 1.44 -Wound/Ulcer Outcome Not Healed -Ulcer Cleansing Rinsed/ Irrigated with Saline -Foul Odor after Cleansing No -Bioengineered Tissue No -Bleeding Controlled with Pressure -Treatment Response Procedure Tolerated Well #4 R post LE -Time 09:06 -Correct Patient Yes -Correct Side, Site, Position Yes -Correct Procedure Yes -Procedure Performed Yes -Type of Procedure Debridement -Clinical Debridement Subcutaneous -Post Debridement Size (cm) - Length 5.1 -Post Debridement Size (cm) - Width 3.0 -Post Debridement Size (cm) - Depth 0.2 -Total Square Cm 15.30 -Wound/Ulcer Outcome Not Healed -Ulcer Cleansing Rinsed/ Irrigated with Saline -Foul Odor after Cleansing No -Bioengineered Tissue No -Bleeding Controlled with Pressure -Treatment Response Procedure Tolerated Well #3 R Med LE -Time 09:07 -Correct Patient Yes -Correct Side, Site, Position Yes -Correct Procedure Yes -Procedure Performed Yes -Type of Procedure Debridement -Clinical Debridement Subcutaneous -Post Debridement Size (cm) - Length 2.1 -Post Debridement Size (cm) - Width 0.9 -Post Debridement Size (cm) - Depth 0.1 -Total Square Cm 1.89 -Wound/Ulcer Outcome Not Healed -Ulcer Cleansing Rinsed/ Irrigated with Saline -Foul Odor after Cleansing No -Bioengineered Tissue No -Bleeding Controlled with Pressure -Offloading No -Treatment Response Procedure Tolerated Well #2 R [place] -Time 09:08 -Correct Patient Yes -Correct Side, Site, Position Yes -Correct Procedure Yes -Procedure Performed Yes -Type of Procedure Debridement -Clinical Debridement Subcutaneous -Post Debridement Size (cm) - Length 11.4 -Post Debridement Size (cm) - Width 1.9 -Post Debridement Size (cm) - Depth 0.2 -Total Square Cm 21.66 -Wound/Ulcer Outcome Not Healed -Ulcer Cleansing Rinsed/ Irrigated with Saline -Foul Odor after Cleansing No -Bioengineered Tissue No -Bleeding Controlled with Pressure -Offloading No -Treatment Response Procedure Tolerated Well #1 R 2nd toe amp -Time 09:09 -Correct Patient Yes -Correct Side, Site, Position Yes -Correct Procedure Yes -Procedure Performed Yes -Type of Procedure Debridement -Clinical Debridement Subcutaneous -Post Debridement Size (cm) - Length 1.6 -Post Debridement Size (cm) - Width 0.5 -Post Debridement Size (cm) - Depth 0.6 -Total Square Cm 0.80 -Wound/Ulcer Outcome Not Healed -Ulcer Cleansing Rinsed/ Irrigated with Saline -Foul Odor after Cleansing No -Bioengineered Tissue No -Bleeding Controlled with Pressure -Offloading No -Treatment Response Procedure Tolerated Well [See Physician Procedure note for Specifics] Pain Scale: 0-10 Numeric [Pain] -Is Patient Pain Free? Yes Yes Neurological: Cranial nerves II-XII grossly intact Psych/Mental Status: Normal Affect Debridement Note Post-Debridement Measurements/Treatment WC - Nurse 2 - General Ulcer CM Notes Start: 04/26/19 08:11 Freq: Status: Active Protocol: Activity Type Activity Date Activity User E-Sign Co-Sign Detail Recorded Client Recorded Date Recorded By Document 04/26/19 08:46 MW [id number] 04/26/19 08:48 MW Document 04/26/19 09:01 AN [id number] 04/26/19 09:10 AN 04/26/19 04/26/19 08:46 09:01 Wound Center Nurse 2 #11 RIGHT MEDIAL FOOT -Time 09:04 -Correct Patient Yes -Correct Side, Site, Position Yes -Correct Procedure Yes -Procedure Performed Yes -Type of Procedure Debridement -Clinical Debridement Subcutaneous -Post Debridement Size (cm) - Length 12.1 -Post Debridement Size (cm) - Width 1.9 -Post Debridement Size (cm) - Depth 0.6 -Total Square Cm 22.99 -Wound/Ulcer Outcome Not Healed -Ulcer Cleansing Rinsed/ Irrigated with Saline -Bleeding Controlled with Pressure -Offloading Yes -Treatment Response Procedure Tolerated Well #8 r Knee -Time 08:47 -Correct Patient Yes -Correct Side, Site, Position Yes -Correct Procedure Yes -Procedure Performed Yes -Type of Procedure Debridement -Clinical Debridement Subcutaneous -Post Debridement Size (cm) - Length 0.4 -Post Debridement Size (cm) - Width 0.1 -Post Debridement Size (cm) - Depth 0.1 -Total Square Cm 0.04 -Wound/Ulcer Outcome Not Healed -Ulcer Cleansing Rinsed/ Irrigated with Saline -Foul Odor after Cleansing No -Bioengineered Tissue No -Bleeding Controlled with Pressure -Offloading No -Treatment Response Procedure Tolerated Well #6 L Post -Time 09:05 -Correct Patient Yes -Correct Side, Site, Position Yes -Correct Procedure Yes -Procedure Performed Yes -Type of Procedure Debridement -Clinical Debridement Subcutaneous -Post Debridement Size (cm) - Length 20.3 -Post Debridement Size (cm) - Width 1.9 -Post Debridement Size (cm) - Depth 0.4 -Total Square Cm 38.57 -Wound/Ulcer Outcome Not Healed -Ulcer Cleansing Rinsed/ Irrigated with Saline -Foul Odor after Cleansing No -Bioengineered Tissue No -Bleeding Controlled with Pressure -Offloading No -Treatment Response Procedure Tolerated Well #5 R Lat LE -Time 09:06 -Correct Patient Yes -Correct Side, Site, Position Yes -Correct Procedure Yes -Procedure Performed Yes -Type of Procedure Debridement -Clinical Debridement Subcutaneous -Post Debridement Size (cm) - Length 1.6 -Post Debridement Size (cm) - Width 0.9 -Post Debridement Size (cm) - Depth 0.3 -Total Square Cm 1.44 -Wound/Ulcer Outcome Not Healed -Ulcer Cleansing Rinsed/ Irrigated with Saline -Foul Odor after Cleansing No -Bioengineered Tissue No -Bleeding Controlled with Pressure -Treatment Response Procedure Tolerated Well #4 R post LE -Time 09:06 -Correct Patient Yes -Correct Side, Site, Position Yes -Correct Procedure Yes -Procedure Performed Yes -Type of Procedure Debridement -Clinical Debridement Subcutaneous -Post Debridement Size (cm) - Length 5.1 -Post Debridement Size (cm) - Width 3.0 -Post Debridement Size (cm) - Depth 0.2 -Total Square Cm 15.30 -Wound/Ulcer Outcome Not Healed -Ulcer Cleansing Rinsed/ Irrigated with Saline -Foul Odor after Cleansing No -Bioengineered Tissue No -Bleeding Controlled with Pressure -Treatment Response Procedure Tolerated Well #3 R Med LE -Time 09:07 -Correct Patient Yes -Correct Side, Site, Position Yes -Correct Procedure Yes -Procedure Performed Yes -Type of Procedure Debridement -Clinical Debridement Subcutaneous -Post Debridement Size (cm) - Length 2.1 -Post Debridement Size (cm) - Width 0.9 -Post Debridement Size (cm) - Depth 0.1 -Total Square Cm 1.89 -Wound/Ulcer Outcome Not Healed -Ulcer Cleansing Rinsed/ Irrigated with Saline -Foul Odor after Cleansing No -Bioengineered Tissue No -Bleeding Controlled with Pressure -Offloading No -Treatment Response Procedure Tolerated Well #2 R [place] Cluster -Time 09:08 -Correct Patient Yes -Correct Side, Site, Position Yes -Correct Procedure Yes -Procedure Performed Yes -Type of Procedure Debridement -Clinical Debridement Subcutaneous -Post Debridement Size (cm) - Length 11.4 -Post Debridement Size (cm) - Width 1.9 -Post Debridement Size (cm) - Depth 0.2 -Total Square Cm 21.66 -Wound/Ulcer Outcome Not Healed -Ulcer Cleansing Rinsed/ Irrigated with Saline -Foul Odor after Cleansing No -Bioengineered Tissue No -Bleeding Controlled with Pressure -Offloading No -Treatment Response Procedure Tolerated Well #1 R 2nd toe amp -Time 09:09 -Correct Patient Yes -Correct Side, Site, Position Yes -Correct Procedure Yes -Procedure Performed Yes -Type of Procedure Debridement -Clinical Debridement Subcutaneous -Post Debridement Size (cm) - Length 1.6 -Post Debridement Size (cm) - Width 0.5 -Post Debridement Size (cm) - Depth 0.6 -Total Square Cm 0.80 -Wound/Ulcer Outcome Not Healed -Ulcer Cleansing Rinsed/ Irrigated with Saline -Foul Odor after Cleansing No -Bioengineered Tissue No -Bleeding Controlled with Pressure -Offloading No -Treatment Response Procedure Tolerated Well Pain Scale: 0-10 Numeric Is Patient Pain Free? Yes Yes Wound debrided: Right Knee Wound Grade/Stage: Stage III Type of Debridement: Excisional debridement Anesthesia Used: 4% Lidocaine Solution Depth: Down to and including healthy tissue Percentage of wound debrided: 100 Instrument Used: 3mm curette Tissue Removed: Slough and devitalized tissue Severity: Fat Layer Exposed Amount of bleeding with debridement: Mild Bleeding Controlled with: Pressure Patient tolerated procedure well Assessment/Plan Active Problems (Last Updated 09/28/18 @ 12:41 by Geraldine Steele) Skin ulcer of right knee with fat layer exposed (Chronic) Tobacco dependence due to cigarettes (Chronic) Type 2 diabetes mellitus with diabetic polyneuropathy (Chronic) Assessment: Open second and third ray resection secondary to 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 Diabetic neuropathy. Malnutrition suspected. 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 Delayed healing. Gait impairment and fall risk. Other comorbidities, right knee ulcer Plan: Minimal area of left knee left. Debridement done as documented above, procedure was well tolerated. Continue pomogran with adaptic over top every other day. Increased protein intake and optimal Diabetes control recommended. Smoking cessation also recommended. All other wound care per Dr Gruber. Patient is currently complex care.
--- NOTE | 2019-04-26 10:39 | PN.PCM_ITS ---
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 Code(s): L97.913 - Non-pressure chronic ulcer of unspecified part of right lower leg with necrosis of muscle (3) Ulcer of right lower extremity with fat layer exposed Status: Chronic Code(s): L97.912 - Non-pressure chronic ulcer of unspecified part of right lower leg with fat layer exposed (4) Delayed wound healing Status: Chronic Code(s): T14.8XXD - Other injury of unspecified body region, subsequent encounter (5) 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 Arguello is a 64-year-old male with multiple comorbidities follows up for delayed healing ulcers to the right foot as well as bilateral legs. It is noted he previously had widespread debridements and fasciotomies performed to bilateral lower extremities secondary to life-threatening and limb threatening infection; this was previously performed at [facility]. He continues to follow with Dr. Gilbert for his right knee ulcer as well. He denies chills, fever, nausea, or vomiting. He presents today with his . He still refuses advanced wound care product application. He refuses hyperbaric oxygen therapy treatment. He elects to proceed with a palliative care plan because he is refusing the other treatment recommendations. Progress of Wound: Stable - Physical Exam Vital Signs Temp Pulse Resp BP 97.3 F L 96 18 133/86 H 04/26/19 08:11 04/26/19 08:11 04/26/19 08:11 04/26/19 08:11 General: Alert, Oriented x3, Cooperative, No apparent distress HEENT: Atraumatic Extremities: Capillary Refill Less than 3 Seconds, No Calf Tenderness - Negative Errol and Lobato sign bilateral, Diminished Peripheral Pulses, Edema - Mild bilateral lower extremities, - - No pain with ulcer manipulation bilateral Skin: Ulcer/ Wound - No purulence, erythema, streaking, odor, infection bilateral. There is exposed tendinous structures to the posterior leg ulcer sites with no necrosis. The peripheral skin is hairless and atrophic Wound Measurements and Assessment WC - Nurse 1 - General Ulcer Measurement Start: 04/26/19 08:11 Freq: Status: Active Protocol: Activity Type Activity Date Activity User E-Sign Co-Sign Detail Recorded Client Recorded Date Recorded By Document 04/26/19 08:11 DL [id number] 04/26/19 08:28 DL 04/26/19 08:11 Wound Center Nurse 1 [Ulcer Assessment] #11 RIGHT MEDIAL FOOT -Combined with other wound No -Current Size (cm) - Length 12.0 -Current Size (cm) - Width 1.8 -Current Size (cm) - Depth 0.6 -Total Square Cm 21.60 -Photo Taken No -Epithelialization Small 1-33% -Tunneling No -Undermining/Tunneling No -Circular Undermining No -Exudate Amt Small -Exudate Type Serosanguineous -Wound Margin Flat & Intact -Granulation Amt Medium (34-66%) -Granulation Quality [place] -Slough/Fibrin Yes -Necrosis Amt Medium (34-66%) -Necrotic Tissue Type Adherent Slough -Structure Exposed N/A -Texture (Lisa-wound Skin Appearance) Assessed Localized Edema -Moisture (Lisa-wound Skin Appearance Assessed ) Dry/Scaly -Color (Lisa-wound Skin Appearance) Assessed -Temperature (Lisa-wound Skin No Abnormality Appearance) (Pt Warm) -Tenderness on Palpation (Lisa-wound No Skin Appearance) -Ulcer Cleansing Wound Cleanser -Foul Odor after Cleansing No -Anesthetic Used 4% Lidocaine Solution #8 r Knee -Combined with other wound No -Current Size (cm) - Length 0.6 -Current Size (cm) - Width 0.2 -Current Size (cm) - Depth 0.2 -Total Square Cm 0.12 -Photo Taken No -Epithelialization Small 1-33% -Tunneling No -Undermining/Tunneling No -Circular Undermining No -Exudate Amt None Present -Granulation Amt None Present (0 %) -Slough/Fibrin Yes -Necrosis Amt Large (67-100%) -Necrotic Tissue Type Adherent Slough -Structure Exposed N/A -Texture (Lisa-wound Skin Appearance) Assessed -Moisture (Lisa-wound Skin Appearance Assessed ) Dry/Scaly -Color (Lisa-wound Skin Appearance) Assessed -Temperature (Lisa-wound Skin No Abnormality Appearance) (Pt Warm) -Tenderness on Palpation (Lisa-wound No Skin Appearance) -Ulcer Cleansing Rinsed/ Irrigated with Saline -Foul Odor after Cleansing No -Anesthetic Used 4% Lidocaine Solution #6 L Post -Combined with other wound No -Current Size (cm) - Length 20.2 -Current Size (cm) - Width 1.8 -Current Size (cm) - Depth 0.4 -Total Square Cm 36.36 -Photo Taken No -Epithelialization Small 1-33% -Tunneling No -Undermining/Tunneling No -Circular Undermining No -Exudate Amt Small -Exudate Type Serosanguineous -Wound Margin Flat & Intact -Granulation Amt Medium (34-66%) -Granulation Quality [place] -Slough/Fibrin Yes -Necrosis Amt Medium (34-66%) -Necrotic Tissue Type Adherent Slough -Structure Exposed N/A -Texture (Lisa-wound Skin Appearance) Assessed Scarring -Moisture (Lisa-wound Skin Appearance Assessed ) Dry/Scaly -Color (Lisa-wound Skin Appearance) Assessed -Temperature (Lisa-wound Skin No Abnormality Appearance) (Pt Warm) -Tenderness on Palpation (Lisa-wound No Skin Appearance) -Ulcer Cleansing Wound Cleanser -Foul Odor after Cleansing No -Anesthetic Used 4% Lidocaine Solution #5 R Lat LE -Combined with other wound No -Current Size (cm) - Length 1.5 -Current Size (cm) - Width 0.8 -Current Size (cm) - Depth 0.3 -Total Square Cm 1.20 -Photo Taken No -Epithelialization None Present -Tunneling No -Undermining/Tunneling No -Circular Undermining No -Exudate Amt None Present -Wound Margin Thickened -Granulation Amt None Present (0 %) -Slough/Fibrin Yes -Necrosis Amt Large (67-100%) -Necrotic Tissue Type Adherent Slough -Structure Exposed N/A -Texture (Lisa-wound Skin Appearance) Assessed -Moisture (Lisa-wound Skin Appearance Assessed ) Dry/Scaly -Color (Lisa-wound Skin Appearance) Assessed -Temperature (Lisa-wound Skin No Abnormality Appearance) (Pt Warm) -Tenderness on Palpation (Lisa-wound No Skin Appearance) -Ulcer Cleansing Wound Cleanser -Foul Odor after Cleansing No -Anesthetic Used 4% Lidocaine Solution #4 R post LE -Combined with other wound No -Photo Taken No -Epithelialization None Present -Tunneling No -Undermining/Tunneling Yes -Undermining/Tunneling Starts (O' 5 clock) -Undermining/Tunneling Ends (O'clock) 7 -Maximum Distance (cm) 0.4 -Circular Undermining No -Exudate Amt Small -Exudate Type Serosanguineous -Wound Margin Flat & Intact -Granulation Amt Small (1-33%) -Granulation Quality [place] -Slough/Fibrin Yes -Necrosis Amt Large (67-100%) -Necrotic Tissue Type Adherent Slough -Structure Exposed Tendon -Texture (Lisa-wound Skin Appearance) Assessed -Moisture (Lisa-wound Skin Appearance Assessed ) Maceration -Color (Lisa-wound Skin Appearance) Assessed -Temperature (Lisa-wound Skin No Abnormality Appearance) (Pt Warm) -Tenderness on Palpation (Lisa-wound No Skin Appearance) -Ulcer Cleansing Wound Cleanser -Foul Odor after Cleansing No -Anesthetic Used 4% Lidocaine Solution #3 R Med LE -Combined with other wound No -Current Size (cm) - Length 2 -Current Size (cm) - Width 0.8 -Current Size (cm) - Depth 0.1 -Total Square Cm 1.6 -Photo Taken No -Epithelialization None Present -Tunneling No -Undermining/Tunneling No -Circular Undermining No -Exudate Amt None Present -Wound Margin Flat & Intact -Granulation Amt None Present (0 %) -Slough/Fibrin Yes -Necrosis Amt Large (67-100%) -Necrotic Tissue Type Adherent Slough -Structure Exposed N/A -Texture (Lisa-wound Skin Appearance) Assessed -Moisture (Lisa-wound Skin Appearance Assessed ) Dry/Scaly -Color (Lisa-wound Skin Appearance) Assessed -Temperature (Lisa-wound Skin No Abnormality Appearance) (Pt Warm) -Tenderness on Palpation (Lisa-wound No Skin Appearance) -Ulcer Cleansing Wound Cleanser -Foul Odor after Cleansing No -Anesthetic Used 4% Lidocaine Solution #2 R [place] Cluster -Combined with other wound No -Current Size (cm) - Length 11.3 -Current Size (cm) - Width 1.8 -Current Size (cm) - Depth 0.2 -Total Square Cm 20.34 -Photo Taken No -Epithelialization None Present -Tunneling No -Undermining/Tunneling No -Circular Undermining No -Exudate Amt Small -Exudate Type Serosanguineous -Wound Margin Flat & Intact -Granulation Amt Medium (34-66%) -Granulation Quality Red -Slough/Fibrin Yes -Necrosis Amt Medium (34-66%) -Necrotic Tissue Type Adherent Slough -Structure Exposed N/A -Texture (Lisa-wound Skin Appearance) Assessed Scarring -Moisture (Lisa-wound Skin Appearance Assessed ) Dry/Scaly -Color (Lisa-wound Skin Appearance) Assessed -Temperature (Lisa-wound Skin No Abnormality Appearance) (Pt Warm) -Tenderness on Palpation (Lisa-wound No Skin Appearance) -Ulcer Cleansing Wound Cleanser -Foul Odor after Cleansing No -Anesthetic Used 4% Lidocaine Solution #1 R 2nd toe amp -Combined with other wound No -Current Size (cm) - Length 1.5 -Current Size (cm) - Width 0.4 -Current Size (cm) - Depth 0.6 -Total Square Cm 0.60 -Photo Taken No -Epithelialization None Present -Tunneling No -Undermining/Tunneling No -Circular Undermining No -Exudate Amt Small -Exudate Type Serosanguineous -Wound Margin Flat & Intact -Granulation Amt Medium (34-66%) -Granulation Quality Red -Slough/Fibrin Yes -Necrosis Amt Medium (34-66%) -Necrotic Tissue Type Adherent Slough -Structure Exposed N/A -Texture (Lisa-wound Skin Appearance) Assessed -Moisture (Lisa-wound Skin Appearance Assessed ) Dry/Scaly -Color (Lisa-wound Skin Appearance) Assessed -Temperature (Lisa-wound Skin No Abnormality Appearance) (Pt Warm) -Tenderness on Palpation (Lisa-wound No Skin Appearance) -Ulcer Cleansing Wound Cleanser -Foul Odor after Cleansing No -Anesthetic Used 4% Lidocaine Solution [Edema Assessment] -Lower Limb Edema Present No WC - Nurse 2 - General Ulcer CM Notes Start: 04/26/19 08:11 Freq: Status: Active Protocol: Activity Type Activity Date Activity User E-Sign Co-Sign Detail Recorded Client Recorded Date Recorded By Document 04/26/19 08:46 MW [id number] 04/26/19 08:48 MW Document 04/26/19 09:01 AN [id number] 04/26/19 09:10 AN 04/26/19 04/26/19 08:46 09:01 Wound Center Nurse 2 [Procedure/Treatment] #11 RIGHT MEDIAL FOOT -Time 09:04 -Correct Patient Yes -Correct Side, Site, Position Yes -Correct Procedure Yes -Procedure Performed Yes -Type of Procedure Debridement -Clinical Debridement Subcutaneous -Post Debridement Size (cm) - Length 12.1 -Post Debridement Size (cm) - Width 1.9 -Post Debridement Size (cm) - Depth 0.6 -Total Square Cm 22.99 -Wound/Ulcer Outcome Not Healed -Ulcer Cleansing Rinsed/ Irrigated with Saline -Bleeding Controlled with Pressure -Offloading Yes -Treatment Response Procedure Tolerated Well #8 r Knee -Time 08:47 -Correct Patient Yes -Correct Side, Site, Position Yes -Correct Procedure Yes -Procedure Performed Yes -Type of Procedure Debridement -Clinical Debridement Subcutaneous -Post Debridement Size (cm) - Length 0.4 -Post Debridement Size (cm) - Width 0.1 -Post Debridement Size (cm) - Depth 0.1 -Total Square Cm 0.04 -Wound/Ulcer Outcome Not Healed -Ulcer Cleansing Rinsed/ Irrigated with Saline -Foul Odor after Cleansing No -Bioengineered Tissue No -Bleeding Controlled with Pressure -Offloading No -Treatment Response Procedure Tolerated Well #6 L Post -Time 09:05 -Correct Patient Yes -Correct Side, Site, Position Yes -Correct Procedure Yes -Procedure Performed Yes -Type of Procedure Debridement -Clinical Debridement Subcutaneous -Post Debridement Size (cm) - Length 20.3 -Post Debridement Size (cm) - Width 1.9 -Post Debridement Size (cm) - Depth 0.4 -Total Square Cm 38.57 -Wound/Ulcer Outcome Not Healed -Ulcer Cleansing Rinsed/ Irrigated with Saline -Foul Odor after Cleansing No -Bioengineered Tissue No -Bleeding Controlled with Pressure -Offloading No -Treatment Response Procedure Tolerated Well #5 R Lat LE -Time 09:06 -Correct Patient Yes -Correct Side, Site, Position Yes -Correct Procedure Yes -Procedure Performed Yes -Type of Procedure Debridement -Clinical Debridement Subcutaneous -Post Debridement Size (cm) - Length 1.6 -Post Debridement Size (cm) - Width 0.9 -Post Debridement Size (cm) - Depth 0.3 -Total Square Cm 1.44 -Wound/Ulcer Outcome Not Healed -Ulcer Cleansing Rinsed/ Irrigated with Saline -Foul Odor after Cleansing No -Bioengineered Tissue No -Bleeding Controlled with Pressure -Treatment Response Procedure Tolerated Well #4 R post LE -Time 09:06 -Correct Patient Yes -Correct Side, Site, Position Yes -Correct Procedure Yes -Procedure Performed Yes -Type of Procedure Debridement -Clinical Debridement Subcutaneous -Post Debridement Size (cm) - Length 5.1 -Post Debridement Size (cm) - Width 3.0 -Post Debridement Size (cm) - Depth 0.2 -Total Square Cm 15.30 -Wound/Ulcer Outcome Not Healed -Ulcer Cleansing Rinsed/ Irrigated with Saline -Foul Odor after Cleansing No -Bioengineered Tissue No -Bleeding Controlled with Pressure -Treatment Response Procedure Tolerated Well #3 R Med LE -Time 09:07 -Correct Patient Yes -Correct Side, Site, Position Yes -Correct Procedure Yes -Procedure Performed Yes -Type of Procedure Debridement -Clinical Debridement Subcutaneous -Post Debridement Size (cm) - Length 2.1 -Post Debridement Size (cm) - Width 0.9 -Post Debridement Size (cm) - Depth 0.1 -Total Square Cm 1.89 -Wound/Ulcer Outcome Not Healed -Ulcer Cleansing Rinsed/ Irrigated with Saline -Foul Odor after Cleansing No -Bioengineered Tissue No -Bleeding Controlled with Pressure -Offloading No -Treatment Response Procedure Tolerated Well #2 R [place] Cluster -Time 09:08 -Correct Patient Yes -Correct Side, Site, Position Yes -Correct Procedure Yes -Procedure Performed Yes -Type of Procedure Debridement -Clinical Debridement Subcutaneous -Post Debridement Size (cm) - Length 11.4 -Post Debridement Size (cm) - Width 1.9 -Post Debridement Size (cm) - Depth 0.2 -Total Square Cm 21.66 -Wound/Ulcer Outcome Not Healed -Ulcer Cleansing Rinsed/ Irrigated with Saline -Foul Odor after Cleansing No -Bioengineered Tissue No -Bleeding Controlled with Pressure -Offloading No -Treatment Response Procedure Tolerated Well #1 R 2nd toe amp -Time 09:09 -Correct Patient Yes -Correct Side, Site, Position Yes -Correct Procedure Yes -Procedure Performed Yes -Type of Procedure Debridement -Clinical Debridement Subcutaneous -Post Debridement Size (cm) - Length 1.6 -Post Debridement Size (cm) - Width 0.5 -Post Debridement Size (cm) - Depth 0.6 -Total Square Cm 0.80 -Wound/Ulcer Outcome Not Healed -Ulcer Cleansing Rinsed/ Irrigated with Saline -Foul Odor after Cleansing No -Bioengineered Tissue No -Bleeding Controlled with Pressure -Offloading No -Treatment Response Procedure Tolerated Well [See Physician Procedure note for Specifics] Pain Scale: 0-10 Numeric [Pain] -Is Patient Pain Free? Yes Yes Musculoskeletal: No Tenderness to Palpation of Joints or Extremities, Muscle Wasting Neurological: - - Lack of normal epicritic sensation light touch consistent with neuropathy bilateral lower extremity Psych/Mental Status: Normal Affect, Appropriate Debridement Note Post-Debridement Measurements/Treatment WC - Nurse 2 - General Ulcer CM Notes Start: 04/26/19 08:11 Freq: Status: Active Protocol: Activity Type Activity Date Activity User E-Sign Co-Sign Detail Recorded Client Recorded Date Recorded By Document 04/26/19 08:46 MW [id number] 04/26/19 08:48 MW Document 04/26/19 09:01 AN [id number] 04/26/19 09:10 AN 04/26/19 04/26/19 08:46 09:01 Wound Center Nurse 2 #11 RIGHT MEDIAL FOOT -Time 09:04 -Correct Patient Yes -Correct Side, Site, Position Yes -Correct Procedure Yes -Procedure Performed Yes -Type of Procedure Debridement -Clinical Debridement Subcutaneous -Post Debridement Size (cm) - Length 12.1 -Post Debridement Size (cm) - Width 1.9 -Post Debridement Size (cm) - Depth 0.6 -Total Square Cm 22.99 -Wound/Ulcer Outcome Not Healed -Ulcer Cleansing Rinsed/ Irrigated with Saline -Bleeding Controlled with Pressure -Offloading Yes -Treatment Response Procedure Tolerated Well #8 r Knee -Time 08:47 -Correct Patient Yes -Correct Side, Site, Position Yes -Correct Procedure Yes -Procedure Performed Yes -Type of Procedure Debridement -Clinical Debridement Subcutaneous -Post Debridement Size (cm) - Length 0.4 -Post Debridement Size (cm) - Width 0.1 -Post Debridement Size (cm) - Depth 0.1 -Total Square Cm 0.04 -Wound/Ulcer Outcome Not Healed -Ulcer Cleansing Rinsed/ Irrigated with Saline -Foul Odor after Cleansing No -Bioengineered Tissue No -Bleeding Controlled with Pressure -Offloading No -Treatment Response Procedure Tolerated Well #6 L Post -Time 09:05 -Correct Patient Yes -Correct Side, Site, Position Yes -Correct Procedure Yes -Procedure Performed Yes -Type of Procedure Debridement -Clinical Debridement Subcutaneous -Post Debridement Size (cm) - Length 20.3 -Post Debridement Size (cm) - Width 1.9 -Post Debridement Size (cm) - Depth 0.4 -Total Square Cm 38.57 -Wound/Ulcer Outcome Not Healed -Ulcer Cleansing Rinsed/ Irrigated with Saline -Foul Odor after Cleansing No -Bioengineered Tissue No -Bleeding Controlled with Pressure -Offloading No -Treatment Response Procedure Tolerated Well #5 R Lat LE -Time 09:06 -Correct Patient Yes -Correct Side, Site, Position Yes -Correct Procedure Yes -Procedure Performed Yes -Type of Procedure Debridement -Clinical Debridement Subcutaneous -Post Debridement Size (cm) - Length 1.6 -Post Debridement Size (cm) - Width 0.9 -Post Debridement Size (cm) - Depth 0.3 -Total Square Cm 1.44 -Wound/Ulcer Outcome Not Healed -Ulcer Cleansing Rinsed/ Irrigated with Saline -Foul Odor after Cleansing No -Bioengineered Tissue No -Bleeding Controlled with Pressure -Treatment Response Procedure Tolerated Well #4 R post LE -Time 09:06 -Correct Patient Yes -Correct Side, Site, Position Yes -Correct Procedure Yes -Procedure Performed Yes -Type of Procedure Debridement -Clinical Debridement Subcutaneous -Post Debridement Size (cm) - Length 5.1 -Post Debridement Size (cm) - Width 3.0 -Post Debridement Size (cm) - Depth 0.2 -Total Square Cm 15.30 -Wound/Ulcer Outcome Not Healed -Ulcer Cleansing Rinsed/ Irrigated with Saline -Foul Odor after Cleansing No -Bioengineered Tissue No -Bleeding Controlled with Pressure -Treatment Response Procedure Tolerated Well #3 R Med LE -Time 09:07 -Correct Patient Yes -Correct Side, Site, Position Yes -Correct Procedure Yes -Procedure Performed Yes -Type of Procedure Debridement -Clinical Debridement Subcutaneous -Post Debridement Size (cm) - Length 2.1 -Post Debridement Size (cm) - Width 0.9 -Post Debridement Size (cm) - Depth 0.1 -Total Square Cm 1.89 -Wound/Ulcer Outcome Not Healed -Ulcer Cleansing Rinsed/ Irrigated with Saline -Foul Odor after Cleansing No -Bioengineered Tissue No -Bleeding Controlled with Pressure -Offloading No -Treatment Response Procedure Tolerated Well #2 R [place] Cluster -Time 09:08 -Correct Patient Yes -Correct Side, Site, Position Yes -Correct Procedure Yes -Procedure Performed Yes -Type of Procedure Debridement -Clinical Debridement Subcutaneous -Post Debridement Size (cm) - Length 11.4 -Post Debridement Size (cm) - Width 1.9 -Post Debridement Size (cm) - Depth 0.2 -Total Square Cm 21.66 -Wound/Ulcer Outcome Not Healed -Ulcer Cleansing Rinsed/ Irrigated with Saline -Foul Odor after Cleansing No -Bioengineered Tissue No -Bleeding Controlled with Pressure -Offloading No -Treatment Response Procedure Tolerated Well #1 R 2nd toe amp -Time 09:09 -Correct Patient Yes -Correct Side, Site, Position Yes -Correct Procedure Yes -Procedure Performed Yes -Type of Procedure Debridement -Clinical Debridement Subcutaneous -Post Debridement Size (cm) - Length 1.6 -Post Debridement Size (cm) - Width 0.5 -Post Debridement Size (cm) - Depth 0.6 -Total Square Cm 0.80 -Wound/Ulcer Outcome Not Healed -Ulcer Cleansing Rinsed/ Irrigated with Saline -Foul Odor after Cleansing No -Bioengineered Tissue No -Bleeding Controlled with Pressure -Offloading No -Treatment Response Procedure Tolerated Well Pain Scale: 0-10 Numeric Is Patient Pain Free? Yes Yes Wound debrided: anterior leg Laterality: Right Wound Grade/Stage: grade 1 Type of Debridement: Excisional debridement Anesthesia Used: 5% Lidocaine Gel Depth: in the subcutaneous layer Percentage of wound debrided: 100 Instrument Used: #15 blade Tissue Removed: fibrous, devitalized subcutaneous, biofilm, slough Severity: Fat Layer Exposed Amount of bleeding with debridement: Mild Bleeding Controlled with: Pressure Patient tolerated procedure well - Additional Wound Wound debrided: medial leg Laterality: Right Wound Grade/Stage: grade 1 Type of Debridement: Excisional debridement Anesthesia Used: 5% Lidocaine Gel Depth: in the subcutaneous layer Percentage of wound debrided: 100 Instrument Used: #15 blade Tissue Removed: fibrous, devitalized subcutaneous, biofilm, slough Severity: Fat Layer Exposed Amount of bleeding with debridement: Mild Bleeding Controlled with: Pressure Patient tolerated procedure: Patient tolerated procedure well - Additional Wound Wound debrided: lateral leg Laterality: Right Wound Grade/Stage: grade 1 Type of Debridement: Excisional debridement Anesthesia Used: 5% Lidocaine Gel Depth: in the subcutaneous layer Percentage of wound debrided: 100 Instrument Used: #15 blade Tissue Removed: fibrous, devitalized subcutaneous, biofilm, slough Severity: Fat Layer Exposed Amount of bleeding with debridement: Mild Bleeding Controlled with: Pressure Patient tolerated procedure: Patient tolerated procedure well - Additional Wound Wound debrided: posterior leg Laterality: Right Wound Grade/Stage: grade 2 Type of Debridement: Excisional debridement Anesthesia Used: 5% Lidocaine Gel Depth: in the subcutaneous layer Percentage of wound debrided: 100 Instrument Used: #15 blade Tissue Removed: fibrous, devitalized subcutaneous, biofilm, slough Severity: Fat Layer Exposed Amount of bleeding with debridement: Mild Bleeding Controlled with: Pressure Patient tolerated procedure: Patient tolerated procedure well - Additional Wound Wound debrided: foot distal Laterality: Right Wound Grade/Stage: grade 3 Type of Debridement: Excisional debridement Anesthesia Used: 5% Lidocaine Gel Depth: in the subcutaneous layer Percentage of wound debrided: 100 Instrument Used: #15 blade Tissue Removed: fibrous, devitalized subcutaneous, biofilm, slough Severity: Fat Layer Exposed Amount of bleeding with debridement: Mild Bleeding Controlled with: Pressure Patient tolerated procedure: Patient tolerated procedure well - Additional Wound Wound debrided: medial hindfoot/ankle Laterality: Right Wound Grade/Stage: grade 3 Type of Debridement: Excisional debridement Anesthesia Used: 5% Lidocaine Gel Depth: in the subcutaneous layer Percentage of wound debrided: 100 Instrument Used: #15 blade Tissue Removed: fibrous, devitalized subcutaneous, biofilm, slough Severity: Fat Layer Exposed Amount of bleeding with debridement: Mild Bleeding Controlled with: Pressure Patient tolerated procedure: Patient tolerated procedure well - Additional Wound Wound debrided: posterior leg Laterality: Left Wound Grade/Stage: grade 2 Type of Debridement: Excisional debridement Anesthesia Used: 5% Lidocaine Gel Depth: in the subcutaneous layer Percentage of wound debrided: 100 Instrument Used: #15 blade Tissue Removed: fibrous, devitalized subcutaneous, biofilm, slough Severity: Fat Layer Exposed Amount of bleeding with debridement: Mild Bleeding Controlled with: Pressure Patient tolerated procedure: Patient tolerated procedure well Assessment/Plan Assessment: -open second and third ray resection 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 -previous bilateral leg fasciotomies and debridements and irrigation performed previously now with right and left leg ulcers with fat and tendon layers exposed. -diabetic neuropathy. -malnutrition suspected. 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 -delayed healing. -gait impairment and fall risk. -other comorbidities. -right knee ulcer Plan: I reviewed and discussed his case today. He was reassured no infections are noted. Subcutaneous excisional debridement done as documented above in the nursing clinical panel. Procedure was well-tolerated. Continue hydrogel and Adaptic; to change daily due to the reported dryness. His continued tendon exposure to the posterior bilateral legs is noted in the gave him a prescription for an offloading donut pillow. He relates he has been using this. He understands he may need to also prop his heels up on a pillow as long as is not causing any new pressure changes to those sites. Elevate lower extremities when seated and in bed. Continue increased protein intake. He had a previous arterial Doppler scheduled with Dr. Morgan's staff on August 02, 2018 and overall perfusion was confirmed; additional intervention or workup was not recommended. It is also noted that he did have venous Doppler performed with reflux evaluation. He did not have evidence of deep venous thrombosis or venous insufficiency at that time; the vessels were compressible. To continue with nutritional supplementation optimize healing; I recommend Juan. I recommend he sustained from smoking and alcohol activities to optimize healing as well. His workup for vasculitis and underlying autoimmune disorder has been completed. A punch biopsy was sent during his last surgical intervention on June 10 and this demonstrated inflammatory changes without malignancy. He had initial screening labs and so far he has a negative RA titer, HL of the 27, KEVIN, anti-CCP, and rheumatoid factor. Several his antibody screenings were not reportable. Hyperbaric oxygen therapy was recommended and it is noted his ejection fraction was most recently 50%. He refuses at this time. Dr. Gilbert continues to manage his right knee ulcer including debridements and traditional wound care plan. He refuses surgical intervention at this time to bilateral lower extremities. I answered all of his questions. Additional amputation of the right foot is not planned due to his fairly nonambulatory status. I recommend further follow- up at the wound care center 2 week with me, or call sooner if he has any questions. Compliance at this advanced wound care center was reviewed. 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
[2019-05-17 08:31] VITALS: BP 144/91; PULSE 95; RESP 18; TEMP 36.4
--- NOTE | 2019-05-17 09:34 | PCM.WC.PN ---
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 Current Visit: Yes Code(s): L97.913 - Non-pressure chronic ulcer of unspecified part of right lower leg with necrosis of muscle (3) Ulcer of right lower extremity with fat layer exposed Status: Chronic Current Visit: Yes Code(s): L97.912 - Non-pressure chronic ulcer of unspecified part of right lower leg with fat layer exposed (4) Delayed wound healing Status: Chronic Current Visit: Yes Code(s): T14.8XXD - Other injury of unspecified body region, subsequent encounter (5) 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 Current Visit: Yes Code(s): L97.923 - Non-pressure chronic ulcer of unspecified part of left lower leg with necrosis of muscle (6) Type 2 diabetes mellitus with diabetic polyneuropathy Status: Chronic Current Visit: Yes Code(s): E11.42 - Type 2 diabetes mellitus with diabetic polyneuropathy (7) Localized edema Status: Chronic Current Visit: Yes Code(s): R60.0 - Localized edema (8) Malnutrition Status: Chronic Current Visit: Yes Code(s): E46 - Unspecified protein-calorie malnutrition Type of Wound Date of Service: 05/17/19 Chief Complaint: right and left Leg ulcers and right foot ulcers History of Wound: Mr. Arguello is a 64-year-old male with multiple comorbidities follows up for delayed healing ulcers to the right foot as well as bilateral legs. It is noted he previously had widespread debridements and fasciotomies performed to bilateral lower extremities secondary to life-threatening and limb threatening infection; this was previously performed at [facility]. He continues to follow with Dr. Gilbert for his right knee ulcer as well. He denies chills, fever, nausea, or vomiting. He presents today with his . He still refuses advanced wound care product application. He refuses hyperbaric oxygen therapy treatment. He elects to proceed with a palliative care plan because he is refusing the other treatment recommendations. His noticed that his tendon is getting moist to the back of his right leg and changing color. Progress of Wound: Improving all sites except the right posterior leg ulcer does have some deterioration of the tendon exposed - Physical Exam Vital Signs Temp Pulse Resp BP 97.5 F L 95 18 144/91 H 05/17/19 08:31 05/17/19 08:31 05/17/19 08:31 05/17/19 08:31 General: Alert, Oriented x3, Cooperative, No apparent distress HEENT: Atraumatic Extremities: No cyanosis, Capillary Refill Less than 3 Seconds, No Calf Tenderness - Negative Errol and Lobato sign bilateral, Diminished Peripheral Pulses, Edema - Mild bilateral lower extremities Skin: Ulcer/ Wound - No purulence, erythema, streaking, odor left leg. There is some devitalization to the posterior right Achilles tendon with necrosing discoloration in which after debridement this tendon is healthy and bleeding with no residual odor or deep tracking along the fascial compartment. The skin is hairless and atrophic Wound Measurements and Assessment WC - Nurse 1 - General Ulcer Measurement Start: 04/26/19 08:11 Freq: Status: Active Protocol: Activity Type Activity Date Activity User E-Sign Co-Sign Detail Recorded Client Recorded Date Recorded By Document 05/17/19 08:31 DV [id number] 05/17/19 08:51 DV 05/17/19 08:31 Wound Center Nurse 1 [Ulcer Assessment] #11 RIGHT MEDIAL FOOT -Combined with other wound No -Photo Taken No -Epithelialization None Present -Tunneling No -Undermining/Tunneling No -Circular Undermining No -Exudate Amt Medium -Exudate Type Yellow/Green -Wound Margin Fibrotic Scar, Thickened Scar -Granulation Amt None Present (0 %) -Granulation Quality N/A -Slough/Fibrin Yes -Necrosis Amt Large (67-100%) -Necrotic Tissue Type Adherent Slough -Structure Exposed None/Limited to Skin Breakdown -Texture (Lisa-wound Skin Appearance) Assessed, Localized Edema -Moisture (Lisa-wound Skin Appearance Assessed,Dry/ ) Scaly -Color (Lisa-wound Skin Appearance) Assessed -Temperature (Lisa-wound Skin No Abnormality Appearance) (Pt Warm) -Foul Odor after Cleansing No -Anesthetic Used 5% Lidocaine Gel #8 r Knee -Combined with other wound No -Current Size (cm) - Length 0.4 -Current Size (cm) - Width 0.9 -Current Size (cm) - Depth 0.2 -Total Square Cm 0.36 -Photo Taken No -Epithelialization None Present -Tunneling No -Undermining/Tunneling No -Circular Undermining No -Exudate Amt Small -Exudate Type Serosanguineous -Granulation Amt None Present (0 %) -Granulation Quality N/A -Slough/Fibrin Yes -Necrosis Amt Medium (34-66%) -Necrotic Tissue Type Adherent Slough -Texture (Lisa-wound Skin Appearance) Assessed, Localized Edema -Moisture (Lisa-wound Skin Appearance Assessed,Dry/ ) Scaly -Color (Lisa-wound Skin Appearance) Assessed -Temperature (Lisa-wound Skin No Abnormality Appearance) (Pt Warm) -Tenderness on Palpation (Lisa-wound No Skin Appearance) -Anesthetic Used 5% Lidocaine Gel #6 POSTERIOR LLE -Combined with other wound No -Current Size (cm) - Length 125.0 -Current Size (cm) - Width 2.0 -Current Size (cm) - Depth 0.4 -Total Square Cm 250.00 -Photo Taken No -Epithelialization None Present -Tunneling No -Undermining/Tunneling No -Circular Undermining No -Exudate Amt Medium -Exudate Type Serosanguineous -Granulation Amt None Present (0 %) -Granulation Quality N/A -Slough/Fibrin Yes -Necrosis Amt Large (67-100%) -Necrotic Tissue Type Adherent Slough -Structure Exposed None/Limited to Skin Breakdown -Texture (Lisa-wound Skin Appearance) Assessed, Scarring -Moisture (Lisa-wound Skin Appearance Assessed, ) Weeping -Color (Lisa-wound Skin Appearance) Assessed, Mottled -Temperature (Lisa-wound Skin No Abnormality Appearance) (Pt Warm) -Tenderness on Palpation (Lisa-wound No Skin Appearance) -Ulcer Cleansing Rinsed/ Irrigated with Saline -Foul Odor after Cleansing No -Anesthetic Used 5% Lidocaine Gel #5 LATERAL RLE -Combined with other wound No -Current Size (cm) - Length 1.5 -Current Size (cm) - Width 1.0 -Current Size (cm) - Depth 0.1 -Total Square Cm 1.50 -Photo Taken No -Undermining/Tunneling No -Circular Undermining No -Exudate Amt Medium -Exudate Type Serosanguineous -Wound Margin Fibrotic Scar, Thickened Scar -Granulation Amt None Present (0 %) -Slough/Fibrin No -Necrosis Amt Large (67-100%) -Necrotic Tissue Type Adherent Slough -Structure Exposed None/Limited to Skin Breakdown -Texture (Lisa-wound Skin Appearance) Assessed, Localized Edema -Moisture (Lisa-wound Skin Appearance Assessed,Dry/ ) Scaly -Color (Lisa-wound Skin Appearance) Assessed, Hemosiderin Staining -Anesthetic Used 5% Lidocaine Gel #4 POSTERIOR RLE -Combined with other wound No -Current Size (cm) - Length 6.8 -Current Size (cm) - Width 3.4 -Current Size (cm) - Depth 0.2 -Total Square Cm 23.12 -Photo Taken No -Epithelialization None Present -Tunneling No -Undermining/Tunneling No -Exudate Amt Large -Exudate Type Yellow/Green -Wound Margin Fibrotic Scar, Thickened Scar -Granulation Amt None Present (0 %) -Granulation Quality N/A -Slough/Fibrin Yes -Necrosis Amt Large (67-100%) -Necrotic Tissue Type Adherent Slough -Structure Exposed None/Limited to Skin Breakdown -Texture (Lisa-wound Skin Appearance) Assessed, Scarring -Moisture (Lisa-wound Skin Appearance Assessed, ) Weeping -Color (Lisa-wound Skin Appearance) Assessed, Erythema -Temperature (Lisa-wound Skin No Abnormality Appearance) (Pt Warm) -Tenderness on Palpation (Lisa-wound No Skin Appearance) -Foul Odor after Cleansing Yes -Anesthetic Used 5% Lidocaine Gel #3 R Med LE -Combined with other wound No -Current Size (cm) - Length 2 -Current Size (cm) - Width 0 -Current Size (cm) - Depth 0.8 -Total Square Cm 0 -Photo Taken No -Epithelialization None Present -Tunneling No -Undermining/Tunneling No -Circular Undermining No -Granulation Amt None Present (0 %) -Granulation Quality N/A -Slough/Fibrin No -Necrosis Amt None Present (0 %) -Necrotic Tissue Type Adherent Slough -Structure Exposed None/Limited to Skin Breakdown -Texture (Lisa-wound Skin Appearance) Assessed, Scarring -Moisture (Lisa-wound Skin Appearance Assessed,Dry/ ) Scaly -Color (Lisa-wound Skin Appearance) No Abnormality, Assessed -Temperature (Lisa-wound Skin No Abnormality Appearance) (Pt Warm) -Tenderness on Palpation (Lisa-wound No Skin Appearance) -Foul Odor after Cleansing Yes -Anesthetic Used 5% Lidocaine Gel #2 R POLLOCK CLUSTER -Combined with other wound No -Current Size (cm) - Length 14.0 -Current Size (cm) - Width 4.4 -Current Size (cm) - Depth 0.1 -Total Square Cm 61.60 -Photo Taken No -Epithelialization None Present -Tunneling No -Undermining/Tunneling No -Circular Undermining No -Exudate Amt Medium -Exudate Type Serosanguineous -Wound Margin Indistinct, Non -Visible -Granulation Amt None Present (0 %) -Granulation Quality N/A -Slough/Fibrin Yes -Necrosis Amt Large (67-100%) -Necrotic Tissue Type Adherent Slough -Structure Exposed None/Limited to Skin Breakdown -Texture (Lisa-wound Skin Appearance) Assessed, Scarring -Moisture (Lisa-wound Skin Appearance Assessed,Dry/ ) Scaly -Color (Lisa-wound Skin Appearance) Assessed, Erythema -Temperature (Lisa-wound Skin No Abnormality Appearance) (Pt Warm) -Tenderness on Palpation (Lisa-wound No Skin Appearance) -Foul Odor after Cleansing No -Anesthetic Used 5% Lidocaine Gel #1 RIGHT GRT TOE/2ND TOE WEB SPACE -Combined with other wound No -Current Size (cm) - Length 1.0 -Current Size (cm) - Width 0.3 -Current Size (cm) - Depth 0.4 -Total Square Cm 0.30 -Photo Taken No -Epithelialization None Present -Tunneling No -Undermining/Tunneling No WC - Nurse 2 - General Ulcer CM Notes Start: 04/26/19 08:11 Freq: Status: Active Protocol: Activity Type Activity Date Activity User E-Sign Co-Sign Detail Recorded Client Recorded Date Recorded By Document 05/17/19 09:03 JAMAL [id number] 05/17/19 09:11 JAMAL 05/17/19 09:03 Wound Center Nurse 2 [Procedure/Treatment] #11 RIGHT MEDIAL FOOT -Time 09:04 -Correct Patient Yes -Correct Side, Site, Position Yes -Correct Procedure Yes -Procedure Performed Yes -Type of Procedure Debridement -Clinical Debridement Subcutaneous -Post Debridement Size (cm) - Length 13 -Post Debridement Size (cm) - Width 2.3 -Post Debridement Size (cm) - Depth 0.4 -Total Square Cm 29.9 -Wound/Ulcer Outcome Not Healed -Ulcer Cleansing Rinsed/ Irrigated with Saline -Foul Odor after Cleansing No -Bioengineered Tissue No -Bleeding Controlled with Pressure -Offloading No -Treatment Response Procedure Tolerated Well #6 POSTERIOR LLE -Time 09:03 -Correct Patient Yes -Correct Side, Site, Position Yes -Correct Procedure Yes -Procedure Performed Yes -Type of Procedure Debridement -Clinical Debridement Subcutaneous -Post Debridement Size (cm) - Length 15.1 -Post Debridement Size (cm) - Width 2.1 -Post Debridement Size (cm) - Depth 0.4 -Total Square Cm 31.71 -Wound/Ulcer Outcome Not Healed -Ulcer Cleansing Rinsed/ Irrigated with Saline -Foul Odor after Cleansing No -Bioengineered Tissue No -Bleeding Controlled with Pressure -Offloading No -Treatment Response Procedure Tolerated Well #5 LATERAL RLE -Time 09:04 -Correct Patient Yes -Correct Side, Site, Position Yes -Correct Procedure Yes -Procedure Performed Yes -Type of Procedure Debridement -Clinical Debridement Subcutaneous -Post Debridement Size (cm) - Length 1.5 -Post Debridement Size (cm) - Width 1.1 -Post Debridement Size (cm) - Depth 0.1 -Total Square Cm 1.65 -Wound/Ulcer Outcome Not Healed -Ulcer Cleansing Rinsed/ Irrigated with Saline -Foul Odor after Cleansing No -Bioengineered Tissue No -Bleeding Controlled with Pressure -Offloading No -Treatment Response Procedure Tolerated Well #4 POSTERIOR RLE -Time 09:04 -Correct Patient Yes -Correct Side, Site, Position Yes -Correct Procedure Yes -Procedure Performed Yes -Type of Procedure Debridement -Clinical Debridement Muscle -Post Debridement Size (cm) - Length 6.8 -Post Debridement Size (cm) - Width 3.5 -Post Debridement Size (cm) - Depth 0.2 -Total Square Cm 23.80 -Wound/Ulcer Outcome Not Healed -Ulcer Cleansing Rinsed/ Irrigated with Saline -Foul Odor after Cleansing No -Bioengineered Tissue No -Bleeding Controlled with Pressure -Offloading No -Treatment Response Procedure Tolerated Well #3 R Med LE -Time 09:04 -Correct Patient Yes -Correct Side, Site, Position Yes -Correct Procedure Yes -Procedure Performed Yes -Type of Procedure Debridement -Clinical Debridement Subcutaneous -Post Debridement Size (cm) - Length 2.1 -Post Debridement Size (cm) - Width 0.8 -Post Debridement Size (cm) - Depth 0.2 -Total Square Cm 1.68 -Wound/Ulcer Outcome Not Healed -Ulcer Cleansing Rinsed/ Irrigated with Saline -Foul Odor after Cleansing No -Bioengineered Tissue No -Bleeding Controlled with Pressure -Offloading No -Treatment Response Procedure Tolerated Well #2 R POLLOCK CLUSTER -Time 09:05 -Correct Patient Yes -Correct Side, Site, Position Yes -Correct Procedure Yes -Procedure Performed Yes -Type of Procedure Debridement -Clinical Debridement Subcutaneous -Post Debridement Size (cm) - Length 14 -Post Debridement Size (cm) - Width 4.5 -Post Debridement Size (cm) - Depth 0.1 -Total Square Cm 63.0 -Wound/Ulcer Outcome Not Healed -Ulcer Cleansing Rinsed/ Irrigated with Saline -Foul Odor after Cleansing No -Bioengineered Tissue No -Bleeding Controlled with Pressure -Offloading No -Treatment Response Procedure Tolerated Well #1 RIGHT GRT TOE/2ND TOE WEB SPACE -Time 09:05 -Correct Patient Yes -Correct Side, Site, Position Yes -Correct Procedure Yes -Procedure Performed Yes -Type of Procedure Debridement -Clinical Debridement Subcutaneous -Post Debridement Size (cm) - Length 1.1 -Post Debridement Size (cm) - Width 0.3 -Post Debridement Size (cm) - Depth 0.4 -Total Square Cm 0.33 -Wound/Ulcer Outcome Not Healed -Ulcer Cleansing Rinsed/ Irrigated with Saline -Foul Odor after Cleansing No -Bioengineered Tissue No -Bleeding Controlled with Pressure -Offloading No -Treatment Response Procedure Tolerated Well [See Physician Procedure note for Specifics] Pain Scale: 0-10 Numeric [Pain] -Is Patient Pain Free? Yes Musculoskeletal: No Tenderness to Palpation of Joints or Extremities, Muscle Wasting, Tenderness - Also manipulation discomfort is noted, - Neurological: - - Lack of normal pruritic sensation light touch consistent with neuropathy bilateral lower extremities Psych/Mental Status: Normal Affect, Appropriate Debridement Note Post-Debridement Measurements/Treatment WC - Nurse 2 - General Ulcer CM Notes Start: 04/26/19 08:11 Freq: Status: Active Protocol: Activity Type Activity Date Activity User E-Sign Co-Sign Detail Recorded Client Recorded Date Recorded By Document 04/26/19 08:46 MW [id number] 04/26/19 08:48 MW Document 04/26/19 09:01 AN [id number] 04/26/19 09:10 AN Document 05/17/19 09:03 [id number] 05/17/19 09:11 JF 04/26/19 04/26/19 05/17/19 08:46 09:01 09:03 Wound Center Nurse 2 #11 RIGHT MEDIAL FOOT -Time 09:04 09:04 -Correct Patient Yes Yes -Correct Side, Site, Position Yes Yes -Correct Procedure Yes Yes -Procedure Performed Yes Yes -Type of Procedure Debridement Debridement -Clinical Debridement Subcutaneous Subcutaneous -Post Debridement Size (cm) - Length 12.1 13 -Post Debridement Size (cm) - Width 1.9 2.3 -Post Debridement Size (cm) - Depth 0.6 0.4 -Total Square Cm 22.99 29.9 -Wound/Ulcer Outcome Not Healed Not Healed -Ulcer Cleansing Rinsed/ Rinsed/ Irrigated with Irrigated with Saline Saline -Foul Odor after Cleansing No -Bioengineered Tissue No -Bleeding Controlled with Pressure Pressure -Offloading Yes No -Treatment Response Procedure Procedure Tolerated Well Tolerated Well #8 r Knee -Time 08:47 -Correct Patient Yes -Correct Side, Site, Position Yes -Correct Procedure Yes -Procedure Performed Yes -Type of Procedure Debridement -Clinical Debridement Subcutaneous -Post Debridement Size (cm) - Length 0.4 -Post Debridement Size (cm) - Width 0.1 -Post Debridement Size (cm) - Depth 0.1 -Total Square Cm 0.04 -Wound/Ulcer Outcome Not Healed -Ulcer Cleansing Rinsed/ Irrigated with Saline -Foul Odor after Cleansing No -Bioengineered Tissue No -Bleeding Controlled with Pressure -Offloading No -Treatment Response Procedure Tolerated Well #6 POSTERIOR LLE -Time 09:05 09:03 -Correct Patient Yes Yes -Correct Side, Site, Position Yes Yes -Correct Procedure Yes Yes -Procedure Performed Yes Yes -Type of Procedure Debridement Debridement -Clinical Debridement Subcutaneous Subcutaneous -Post Debridement Size (cm) - Length 20.3 15.1 -Post Debridement Size (cm) - Width 1.9 2.1 -Post Debridement Size (cm) - Depth 0.4 0.4 -Total Square Cm 38.57 31.71 -Wound/Ulcer Outcome Not Healed Not Healed -Ulcer Cleansing Rinsed/ Rinsed/ Irrigated with Irrigated with Saline Saline -Foul Odor after Cleansing No No -Bioengineered Tissue No No -Bleeding Controlled with Pressure Pressure -Offloading No No -Treatment Response Procedure Procedure Tolerated Well Tolerated Well #5 LATERAL RLE -Time 09:06 09:04 -Correct Patient Yes Yes -Correct Side, Site, Position Yes Yes -Correct Procedure Yes Yes -Procedure Performed Yes Yes -Type of Procedure Debridement Debridement -Clinical Debridement Subcutaneous Subcutaneous -Post Debridement Size (cm) - Length 1.6 1.5 -Post Debridement Size (cm) - Width 0.9 1.1 -Post Debridement Size (cm) - Depth 0.3 0.1 -Total Square Cm 1.44 1.65 -Wound/Ulcer Outcome Not Healed Not Healed -Ulcer Cleansing Rinsed/ Rinsed/ Irrigated with Irrigated with Saline Saline -Foul Odor after Cleansing No No -Bioengineered Tissue No No -Bleeding Controlled with Pressure Pressure -Offloading No -Treatment Response Procedure Procedure Tolerated Well Tolerated Well #4 POSTERIOR RLE -Time 09: 09:04 -Correct Patient Yes Yes -Correct Side, Site, Position Yes Yes -Correct Procedure Yes Yes -Procedure Performed Yes Yes -Type of Procedure Debridement Debridement -Clinical Debridement Subcutaneous Muscle -Post Debridement Size (cm) - Length 5.1 6.8 -Post Debridement Size (cm) - Width 3.0 3.5 -Post Debridement Size (cm) - Depth 0.2 0.2 -Total Square Cm 15.30 23.80 -Wound/Ulcer Outcome Not Healed Not Healed -Ulcer Cleansing Rinsed/ Rinsed/ Irrigated with Irrigated with Saline Saline -Foul Odor after Cleansing No No -Bioengineered Tissue No No -Bleeding Controlled with Pressure Pressure -Offloading No -Treatment Response Procedure Procedure Tolerated Well Tolerated Well #3 R Med LE -Time 09:07 09:04 -Correct Patient Yes Yes -Correct Side, Site, Position Yes Yes -Correct Procedure Yes Yes -Procedure Performed Yes Yes -Type of Procedure Debridement Debridement -Clinical Debridement Subcutaneous Subcutaneous -Post Debridement Size (cm) - Length 2.1 2.1 -Post Debridement Size (cm) - Width 0.9 0.8 -Post Debridement Size (cm) - Depth 0.1 0.2 -Total Square Cm 1.89 1.68 -Wound/Ulcer Outcome Not Healed Not Healed -Ulcer Cleansing Rinsed/ Rinsed/ Irrigated with Irrigated with Saline Saline -Foul Odor after Cleansing No No -Bioengineered Tissue No No -Bleeding Controlled with Pressure Pressure -Offloading No No -Treatment Response Procedure Procedure Tolerated Well Tolerated Well #2 R POLLOCK CLUSTER -Time 09:08 09:05 -Correct Patient Yes Yes -Correct Side, Site, Position Yes Yes -Correct Procedure Yes Yes -Procedure Performed Yes Yes -Type of Procedure Debridement Debridement -Clinical Debridement Subcutaneous Subcutaneous -Post Debridement Size (cm) - Length 11.4 14 -Post Debridement Size (cm) - Width 1.9 4.5 -Post Debridement Size (cm) - Depth 0.2 0.1 -Total Square Cm 21.66 63.0 -Wound/Ulcer Outcome Not Healed Not Healed -Ulcer Cleansing Rinsed/ Rinsed/ Irrigated with Irrigated with Saline Saline -Foul Odor after Cleansing No No -Bioengineered Tissue No No -Bleeding Controlled with Pressure Pressure -Offloading No No -Treatment Response Procedure Procedure Tolerated Well Tolerated Well #1 RIGHT GRT TOE/2ND TOE WEB SPACE -Time 09:09 09:05 -Correct Patient Yes Yes -Correct Side, Site, Position Yes Yes -Correct Procedure Yes Yes -Procedure Performed Yes Yes -Type of Procedure Debridement Debridement -Clinical Debridement Subcutaneous Subcutaneous -Post Debridement Size (cm) - Length 1.6 1.1 -Post Debridement Size (cm) - Width 0.5 0.3 -Post Debridement Size (cm) - Depth 0.6 0.4 -Total Square Cm 0.80 0.33 -Wound/Ulcer Outcome Not Healed Not Healed -Ulcer Cleansing Rinsed/ Rinsed/ Irrigated with Irrigated with Saline Saline -Foul Odor after Cleansing No No -Bioengineered Tissue No No -Bleeding Controlled with Pressure Pressure -Offloading No No -Treatment Response Procedure Procedure Tolerated Well Tolerated Well Pain Scale: 0-10 Numeric Is Patient Pain Free? Yes Yes Yes Wound debrided: posterior leg Laterality: Left Wound Grade/Stage: grade 2 Type of Debridement: Excisional debridement Anesthesia Used: 5% Lidocaine Gel Depth: in the subcutaneous layer Percentage of wound debrided: 100 Instrument Used: #15 blade Tissue Removed: fibrous, devitalized subcutaneous, biofilm, slough Severity: Fat Layer Exposed Amount of bleeding with debridement: Mild Bleeding Controlled with: Pressure Patient tolerated procedure well - Additional Wound Wound debrided: posterior leg Laterality: Right Wound Grade/Stage: grade 2 Type of Debridement: Excisional debridement Anesthesia Used: 5% Lidocaine Gel Depth: in the subcutaneous layer, to muscle Percentage of wound debrided: 100 Instrument Used: #15 blade, Forceps Tissue Removed: fibrous, devitalized subcutaneous and achilles tendon, biofilm, slough Severity: Necrosis of Muscle Amount of bleeding with debridement: Mild Bleeding Controlled with: Pressure Patient tolerated procedure: Patient tolerated procedure well - Additional Wound Wound debrided: forefoot Laterality: Right Wound Grade/Stage: grade 3 Type of Debridement: Excisional debridement Anesthesia Used: 5% Lidocaine Gel Depth: in the subcutaneous layer Percentage of wound debrided: 100 Instrument Used: #15 blade Tissue Removed: fibrous, devitalized subcutaneous, biofilm, slough Severity: Fat Layer Exposed Amount of bleeding with debridement: Mild Bleeding Controlled with: Pressure Patient tolerated procedure: Patient tolerated procedure well - Additional Wound Wound debrided: medial foot cluster Laterality: Right Wound Grade/Stage: grade 3 Type of Debridement: Excisional debridement Anesthesia Used: 5% Lidocaine Gel Depth: in the subcutaneous layer Percentage of wound debrided: 100 Instrument Used: #15 blade Tissue Removed: fibrous, devitalized subcutaneous, biofilm, slough Severity: Fat Layer Exposed Amount of bleeding with debridement: Mild Bleeding Controlled with: Pressure Patient tolerated procedure: Patient tolerated procedure well - Additional Wound Wound debrided: anterior leg cluster Laterality: Right Wound Grade/Stage: grade 1 Type of Debridement: Excisional debridement Anesthesia Used: 5% Lidocaine Gel Depth: in the subcutaneous layer Percentage of wound debrided: 100 Instrument Used: #15 blade Tissue Removed: fibrous, devitalized subcutaneous, biofilm, slough Severity: Fat Layer Exposed Amount of bleeding with debridement: Mild Bleeding Controlled with: Pressure Patient tolerated procedure: Patient tolerated procedure well - Additional Wound Wound debrided: lateral leg Laterality: Right - g Wound Grade/Stage: grade 1 Type of Debridement: Excisional debridement Anesthesia Used: 5% Lidocaine Gel Depth: in the subcutaneous layer Percentage of wound debrided: 100 Instrument Used: #15 blade Tissue Removed: fibrous, devitalized subcutaneous, biofilm, slough Severity: Fat Layer Exposed Amount of bleeding with debridement: Mild Bleeding Controlled with: Pressure Patient tolerated procedure: Patient tolerated procedure well Assessment/Plan Active Problems (Last Updated 09/28/18 @ 12:41 by Geraldine Steele) Ulcer of right foot with fat layer exposed (Chronic) 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 -previous bilateral leg fasciotomies and debridements and irrigation performed previously now with right and left leg ulcers with fat and tendon layers exposed. -diabetic neuropathy. -malnutrition suspected. 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 -delayed healing. -gait impairment and fall risk. -other comorbidities. -right knee ulcer Plan: I reviewed and discussed his case today. Subcutaneous excisional debridement done as documented above in the nursing clinical panel. Excisional tendon debridement was also performed to the right posterior leg. These procedures were well-tolerated. Continue hydrogel and Adaptic; to change daily due to the reported dryness. For this upcoming week, I recommend Betadine gauze dressing changes daily to the posterior right leg to address any bacterial contamination that may be occurring with the tendon necrosis. He is reassured there are no local signs of infection. If this continues to deteriorate or infection sign develops a culture will be obtained at future visits. It is noted he also does not have any systemic signs of illness. His continued tendon exposure to the posterior bilateral legs is noted in the gave him a prescription for an offloading donut pillow. He relates he has been using this. He understands he may need to also prop his heels up on a pillow as long as is not causing any new pressure changes to those sites. Elevate lower extremities when seated and in bed. Continue increased protein intake. He had a previous arterial Doppler scheduled with Dr. Morgan's staff on August 02, 2018 and overall perfusion was confirmed; additional intervention or workup was not recommended. It is also noted that he did have venous Doppler performed with reflux evaluation. He did not have evidence of deep venous thrombosis or venous insufficiency at that time; the vessels were compressible. To continue with nutritional supplementation optimize healing; I recommend Juan. I recommend he sustained from smoking and alcohol activities to optimize healing as well. His workup for vasculitis and underlying autoimmune disorder has been completed. A punch biopsy was sent during his last surgical intervention on June 10 and this demonstrated inflammatory changes without malignancy. He had initial screening labs and so far he has a negative RA titer, HL of the 27, KEVIN, anti-CCP, and rheumatoid factor. Several his antibody screenings were not reportable. Hyperbaric oxygen therapy was recommended and it is noted his ejection fraction was most recently 50%. He refuses at this time. Dr. Gilbert continues to manage his right knee ulcer including debridements and traditional wound care plan. He refuses surgical intervention at this time to bilateral lower extremities. I answered all of his questions. Additional amputation of the right foot is not planned due to his fairly nonambulatory status. I recommend further follow-up at the wound care center 2 week with me, or call sooner if he has any questions. Compliance at this advanced wound care center was reviewed. 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
--- NOTE | 2019-05-17 11:16 | PCM.WC.PN ---
(1) Skin ulcer of right knee with fat layer exposed Status: Chronic Current Visit: No Code(s): L97.812 - Non-pressure chronic ulcer of other part of right lower leg with fat layer exposed (2) Tobacco dependence due to cigarettes Status: Chronic Current Visit: No Code(s): F17.210 - Nicotine dependence, cigarettes, uncomplicated (3) Type 2 diabetes mellitus with diabetic polyneuropathy Status: Chronic Current Visit: Yes Code(s): E11.42 - Type 2 diabetes mellitus with diabetic polyneuropathy Type of Wound Date of Service: 05/17/19 Chief Complaint: right and left Leg ulcers and right foot ulcers History of Wound: Mr. Arguello is a 64-year-old male with multiple comorbidities follows up for delayed healing ulcers to the right foot as well as bilateral legs. It is noted he previously had widespread debridements and fasciotomies performed to bilateral lower extremities secondary to life-threatening and limb threatening infection; this was previously performed at [facility]. He continues to follow with Dr. Gilbert for his right knee ulcer as well. He denies chills, fever, nausea, or vomiting. He presents today with his . He still refuses advanced wound care product application. He refuses hyperbaric oxygen therapy treatment. He elects to proceed with a palliative care plan because he is refusing the other treatment recommendations. His noticed that his tendon is getting moist to the back of his right leg and changing color. Progress of Wound: Improving. Minimal area of right knee left. - Physical Exam Vital Signs Temp Pulse Resp BP 97.5 F L 95 18 144/91 H 05/17/19 08:31 05/17/19 08:31 05/17/19 08:31 05/17/19 08:31 General: Alert, Oriented x3, Cooperative, No apparent distress HEENT: Atraumatic, Normocephalic Oral: Moist Mucosa Neck: Supple Lungs: Normal air movement Extremities: No cyanosis Skin: Ulcer/ Wound Wound Measurements and Assessment WC - Nurse 1 - General Ulcer Measurement Start: 04/26/19 08:11 Freq: Status: Active Protocol: Activity Type Activity Date Activity User E-Sign Co-Sign Detail Recorded Client Recorded Date Recorded By Document 05/17/19 08:31 DV [id number] 05/17/19 08:51 DV 05/17/19 08:31 Wound Center Nurse 1 [Ulcer Assessment] #11 RIGHT MEDIAL FOOT -Combined with other wound No -Photo Taken No -Epithelialization None Present -Tunneling No -Undermining/Tunneling No -Circular Undermining No -Exudate Amt Medium -Exudate Type Yellow/Green -Wound Margin Fibrotic Scar, Thickened Scar -Granulation Amt None Present (0 %) -Granulation Quality N/A -Slough/Fibrin Yes -Necrosis Amt Large (67-100%) -Necrotic Tissue Type Adherent Slough -Structure Exposed None/Limited to Skin Breakdown -Texture (Lisa-wound Skin Appearance) Assessed, Localized Edema -Moisture (Lisa-wound Skin Appearance Assessed,Dry/ ) Scaly -Color (Lisa-wound Skin Appearance) Assessed -Temperature (Lisa-wound Skin No Abnormality Appearance) (Pt Warm) -Foul Odor after Cleansing No -Anesthetic Used 5% Lidocaine Gel #8 r Knee -Combined with other wound No -Current Size (cm) - Length 0.4 -Current Size (cm) - Width 0.9 -Current Size (cm) - Depth 0.2 -Total Square Cm 0.36 -Photo Taken No -Epithelialization None Present -Tunneling No -Undermining/Tunneling No -Circular Undermining No -Exudate Amt Small -Exudate Type Serosanguineous -Granulation Amt None Present (0 %) -Granulation Quality N/A -Slough/Fibrin Yes -Necrosis Amt Medium (34-66%) -Necrotic Tissue Type Adherent Slough -Texture (Lisa-wound Skin Appearance) Assessed, Localized Edema -Moisture (Lisa-wound Skin Appearance Assessed,Dry/ ) Scaly -Color (Lisa-wound Skin Appearance) Assessed -Temperature (Lisa-wound Skin No Abnormality Appearance) (Pt Warm) -Tenderness on Palpation (Lisa-wound No Skin Appearance) -Anesthetic Used 5% Lidocaine Gel #6 POSTERIOR LLE -Combined with other wound No -Current Size (cm) - Length 125.0 -Current Size (cm) - Width 2.0 -Current Size (cm) - Depth 0.4 -Total Square Cm 250.00 -Photo Taken No -Epithelialization None Present -Tunneling No -Undermining/Tunneling No -Circular Undermining No -Exudate Amt Medium -Exudate Type Serosanguineous -Granulation Amt None Present (0 %) -Granulation Quality N/A -Slough/Fibrin Yes -Necrosis Amt Large (67-100%) -Necrotic Tissue Type Adherent Slough -Structure Exposed None/Limited to Skin Breakdown -Texture (Lisa-wound Skin Appearance) Assessed, Scarring -Moisture (Lisa-wound Skin Appearance Assessed, ) Weeping -Color (Lisa-wound Skin Appearance) Assessed, Mottled -Temperature (Lisa-wound Skin No Abnormality Appearance) (Pt Warm) -Tenderness on Palpation (Lisa-wound No Skin Appearance) -Ulcer Cleansing Rinsed/ Irrigated with Saline -Foul Odor after Cleansing No -Anesthetic Used 5% Lidocaine Gel #5 LATERAL RLE -Combined with other wound No -Current Size (cm) - Length 1.5 -Current Size (cm) - Width 1.0 -Current Size (cm) - Depth 0.1 -Total Square Cm 1.50 -Photo Taken No -Undermining/Tunneling No -Circular Undermining No -Exudate Amt Medium -Exudate Type Serosanguineous -Wound Margin Fibrotic Scar, Thickened Scar -Granulation Amt None Present (0 %) -Slough/Fibrin No -Necrosis Amt Large (67-100%) -Necrotic Tissue Type Adherent Slough -Structure Exposed None/Limited to Skin Breakdown -Texture (Lisa-wound Skin Appearance) Assessed, Localized Edema -Moisture (Lisa-wound Skin Appearance Assessed,Dry/ ) Scaly -Color (Lisa-wound Skin Appearance) Assessed, Hemosiderin Staining -Anesthetic Used 5% Lidocaine Gel #4 POSTERIOR RLE -Combined with other wound No -Current Size (cm) - Length 6.8 -Current Size (cm) - Width 3.4 -Current Size (cm) - Depth 0.2 -Total Square Cm 23.12 -Photo Taken No -Epithelialization None Present -Tunneling No -Undermining/Tunneling No -Exudate Amt Large -Exudate Type Yellow/Green -Wound Margin Fibrotic Scar, Thickened Scar -Granulation Amt None Present (0 %) -Granulation Quality N/A -Slough/Fibrin Yes -Necrosis Amt Large (67-100%) -Necrotic Tissue Type Adherent Slough -Structure Exposed None/Limited to Skin Breakdown -Texture (Lisa-wound Skin Appearance) Assessed, Scarring -Moisture (Lisa-wound Skin Appearance Assessed, ) Weeping -Color (Lisa-wound Skin Appearance) Assessed, Erythema -Temperature (Lisa-wound Skin No Abnormality Appearance) (Pt Warm) -Tenderness on Palpation (Lisa-wound No Skin Appearance) -Foul Odor after Cleansing Yes -Anesthetic Used 5% Lidocaine Gel #3 R Med LE -Combined with other wound No -Current Size (cm) - Length 2 -Current Size (cm) - Width 0 -Current Size (cm) - Depth 0.8 -Total Square Cm 0 -Photo Taken No -Epithelialization None Present -Tunneling No -Undermining/Tunneling No -Circular Undermining No -Granulation Amt None Present (0 %) -Granulation Quality N/A -Slough/Fibrin No -Necrosis Amt None Present (0 %) -Necrotic Tissue Type Adherent Slough -Structure Exposed None/Limited to Skin Breakdown -Texture (Lisa-wound Skin Appearance) Assessed, Scarring -Moisture (Lisa-wound Skin Appearance Assessed,Dry/ ) Scaly -Color (Lisa-wound Skin Appearance) No Abnormality, Assessed -Temperature (Lisa-wound Skin No Abnormality Appearance) (Pt Warm) -Tenderness on Palpation (Lisa-wound No Skin Appearance) -Foul Odor after Cleansing Yes -Anesthetic Used 5% Lidocaine Gel #2 R POLLOCK CLUSTER -Combined with other wound No -Current Size (cm) - Length 14.0 -Current Size (cm) - Width 4.4 -Current Size (cm) - Depth 0.1 -Total Square Cm 61.60 -Photo Taken No -Epithelialization None Present -Tunneling No -Undermining/Tunneling No -Circular Undermining No -Exudate Amt Medium -Exudate Type Serosanguineous -Wound Margin Indistinct, Non -Visible -Granulation Amt None Present (0 %) -Granulation Quality N/A -Slough/Fibrin Yes -Necrosis Amt Large (67-100%) -Necrotic Tissue Type Adherent Slough -Structure Exposed None/Limited to Skin Breakdown -Texture (Lisa-wound Skin Appearance) Assessed, Scarring -Moisture (Lisa-wound Skin Appearance Assessed,Dry/ ) Scaly -Color (Lisa-wound Skin Appearance) Assessed, Erythema -Temperature (Lisa-wound Skin No Abnormality Appearance) (Pt Warm) -Tenderness on Palpation (Lisa-wound No Skin Appearance) -Foul Odor after Cleansing No -Anesthetic Used 5% Lidocaine Gel #1 RIGHT GRT TOE/2ND TOE WEB SPACE -Combined with other wound No -Current Size (cm) - Length 1.0 -Current Size (cm) - Width 0.3 -Current Size (cm) - Depth 0.4 -Total Square Cm 0.30 -Photo Taken No -Epithelialization None Present -Tunneling No -Undermining/Tunneling No WC - Nurse 2 - General Ulcer CM Notes Start: 04/26/19 08:11 Freq: Status: Active Protocol: Activity Type Activity Date Activity User E-Sign Co-Sign Detail Recorded Client Recorded Date Recorded By Document 05/17/19 09:03 [id number] 05/17/19 09:11 JF Document 05/17/19 10:00 MW [id number] 05/17/19 10:01 05/17/19 05/17/19 09:03 10:00 Wound Center Nurse 2 [Procedure/Treatment] #11 RIGHT MEDIAL FOOT -Time 09:04 -Correct Patient Yes -Correct Side, Site, Position Yes -Correct Procedure Yes -Procedure Performed Yes -Type of Procedure Debridement -Clinical Debridement Subcutaneous -Post Debridement Size (cm) - Length 13 -Post Debridement Size (cm) - Width 2.3 -Post Debridement Size (cm) - Depth 0.4 -Total Square Cm 29.9 -Wound/Ulcer Outcome Not Healed -Ulcer Cleansing Rinsed/ Irrigated with Saline -Foul Odor after Cleansing No -Bioengineered Tissue No -Bleeding Controlled with Pressure -Offloading No -Treatment Response Procedure Tolerated Well #8 r Knee -Time 10:01 -Correct Patient Yes -Correct Side, Site, Position Yes -Correct Procedure Yes -Procedure Performed No -Post Debridement Size (cm) - Length 0.1 -Post Debridement Size (cm) - Width 0.1 -Post Debridement Size (cm) - Depth 0.1 -Total Square Cm 0.01 -Wound/Ulcer Outcome Not Healed -Ulcer Cleansing Rinsed/ Irrigated with Saline -Foul Odor after Cleansing No -Bioengineered Tissue No -Bleeding Controlled with NA -Offloading No -Treatment Response Procedure Tolerated Well #6 POSTERIOR LLE -Time 09:03 -Correct Patient Yes -Correct Side, Site, Position Yes -Correct Procedure Yes -Procedure Performed Yes -Type of Procedure Debridement -Clinical Debridement Subcutaneous -Post Debridement Size (cm) - Length 15.1 -Post Debridement Size (cm) - Width 2.1 -Post Debridement Size (cm) - Depth 0.4 -Total Square Cm 31.71 -Wound/Ulcer Outcome Not Healed -Ulcer Cleansing Rinsed/ Irrigated with Saline -Foul Odor after Cleansing No -Bioengineered Tissue No -Bleeding Controlled with Pressure -Offloading No -Treatment Response Procedure Tolerated Well #5 LATERAL RLE -Time 09:04 -Correct Patient Yes -Correct Side, Site, Position Yes -Correct Procedure Yes -Procedure Performed Yes -Type of Procedure Debridement -Clinical Debridement Subcutaneous -Post Debridement Size (cm) - Length 1.5 -Post Debridement Size (cm) - Width 1.1 -Post Debridement Size (cm) - Depth 0.1 -Total Square Cm 1.65 -Wound/Ulcer Outcome Not Healed -Ulcer Cleansing Rinsed/ Irrigated with Saline -Foul Odor after Cleansing No -Bioengineered Tissue No -Bleeding Controlled with Pressure -Offloading No -Treatment Response Procedure Tolerated Well #4 POSTERIOR RLE -Time 09:04 -Correct Patient Yes -Correct Side, Site, Position Yes -Correct Procedure Yes -Procedure Performed Yes -Type of Procedure Debridement -Clinical Debridement Muscle -Post Debridement Size (cm) - Length 6.8 -Post Debridement Size (cm) - Width 3.5 -Post Debridement Size (cm) - Depth 0.2 -Total Square Cm 23.80 -Wound/Ulcer Outcome Not Healed -Ulcer Cleansing Rinsed/ Irrigated with Saline -Foul Odor after Cleansing No -Bioengineered Tissue No -Bleeding Controlled with Pressure -Offloading No -Treatment Response Procedure Tolerated Well #3 R Med LE -Time 09:04 -Correct Patient Yes -Correct Side, Site, Position Yes -Correct Procedure Yes -Procedure Performed Yes -Type of Procedure Debridement -Clinical Debridement Subcutaneous -Post Debridement Size (cm) - Length 2.1 -Post Debridement Size (cm) - Width 0.8 -Post Debridement Size (cm) - Depth 0.2 -Total Square Cm 1.68 -Wound/Ulcer Outcome Not Healed -Ulcer Cleansing Rinsed/ Irrigated with Saline -Foul Odor after Cleansing No -Bioengineered Tissue No -Bleeding Controlled with Pressure -Offloading No -Treatment Response Procedure Tolerated Well #2 R POLLCOK CLUSTER -Time 09:05 -Correct Patient Yes -Correct Side, Site, Position Yes -Correct Procedure Yes -Procedure Performed Yes -Type of Procedure Debridement -Clinical Debridement Subcutaneous -Post Debridement Size (cm) - Length 14 -Post Debridement Size (cm) - Width 4.5 -Post Debridement Size (cm) - Depth 0.1 -Total Square Cm 63.0 -Wound/Ulcer Outcome Not Healed -Ulcer Cleansing Rinsed/ Irrigated with Saline -Foul Odor after Cleansing No -Bioengineered Tissue No -Bleeding Controlled with Pressure -Offloading No -Treatment Response Procedure Tolerated Well #1 RIGHT GRT TOE/2ND TOE WEB SPACE -Time 09:05 -Correct Patient Yes -Correct Side, Site, Position Yes -Correct Procedure Yes -Procedure Performed Yes -Type of Procedure Debridement -Clinical Debridement Subcutaneous -Post Debridement Size (cm) - Length 1.1 -Post Debridement Size (cm) - Width 0.3 -Post Debridement Size (cm) - Depth 0.4 -Total Square Cm 0.33 -Wound/Ulcer Outcome Not Healed -Ulcer Cleansing Rinsed/ Irrigated with Saline -Foul Odor after Cleansing No -Bioengineered Tissue No -Bleeding Controlled with Pressure -Offloading No -Treatment Response Procedure Tolerated Well [See Physician Procedure note for Specifics] Pain Scale: 0-10 Numeric [Pain] -Is Patient Pain Free? Yes Musculoskeletal: No Muscle Wasting Neurological: Cranial nerves II-XII grossly intact Psych/Mental Status: Normal Affect Debridement Note Post-Debridement Measurements/Treatment WC - Nurse 2 - General Ulcer CM Notes Start: 04/26/19 08:11 Freq: Status: Active Protocol: Activity Type Activity Date Activity User E-Sign Co-Sign Detail Recorded Client Recorded Date Recorded By Document 04/26/19 08:46 MW [id number] 04/26/19 08:48 MW Document 04/26/19 09:01 AN [id number] 04/26/19 09:10 AN Document 05/17/19 09:03 [id number] 05/17/19 09:11 JF Document 05/17/19 10:00 MW [id number] 05/17/19 10:01 MW 04/26/19 04/26/19 05/17/19 08:46 09:01 09:03 Wound Center Nurse 2 #11 RIGHT MEDIAL FOOT -Time 09:04 09:04 -Correct Patient Yes Yes -Correct Side, Site, Position Yes Yes -Correct Procedure Yes Yes -Procedure Performed Yes Yes -Type of Procedure Debridement Debridement -Clinical Debridement Subcutaneous Subcutaneous -Post Debridement Size (cm) - Length 12.1 13 -Post Debridement Size (cm) - Width 1.9 2.3 -Post Debridement Size (cm) - Depth 0.6 0.4 -Total Square Cm 22.99 29.9 -Wound/Ulcer Outcome Not Healed Not Healed -Ulcer Cleansing Rinsed/ Rinsed/ Irrigated with Irrigated with Saline Saline -Foul Odor after Cleansing No -Bioengineered Tissue No -Bleeding Controlled with Pressure Pressure -Offloading Yes No -Treatment Response Procedure Procedure Tolerated Well Tolerated Well #8 r Knee -Time 08:47 -Correct Patient Yes -Correct Side, Site, Position Yes -Correct Procedure Yes -Procedure Performed Yes -Type of Procedure Debridement -Clinical Debridement Subcutaneous -Post Debridement Size (cm) - Length 0.4 -Post Debridement Size (cm) - Width 0.1 -Post Debridement Size (cm) - Depth 0.1 -Total Square Cm 0.04 -Wound/Ulcer Outcome Not Healed -Ulcer Cleansing Rinsed/ Irrigated with Saline -Foul Odor after Cleansing No -Bioengineered Tissue No -Bleeding Controlled with Pressure -Offloading No -Treatment Response Procedure Tolerated Well #6 POSTERIOR LLE -Time 09:05 09:03 -Correct Patient Yes Yes -Correct Side, Site, Position Yes Yes -Correct Procedure Yes Yes -Procedure Performed Yes Yes -Type of Procedure Debridement Debridement -Clinical Debridement Subcutaneous Subcutaneous -Post Debridement Size (cm) - Length 20.3 15.1 -Post Debridement Size (cm) - Width 1.9 2.1 -Post Debridement Size (cm) - Depth 0.4 0.4 -Total Square Cm 38.57 31.71 -Wound/Ulcer Outcome Not Healed Not Healed -Ulcer Cleansing Rinsed/ Rinsed/ Irrigated with Irrigated with Saline Saline -Foul Odor after Cleansing No No -Bioengineered Tissue No No -Bleeding Controlled with Pressure Pressure -Offloading No No -Treatment Response Procedure Procedure Tolerated Well Tolerated Well #5 LATERAL RLE -Time 09:06 09:04 -Correct Patient Yes Yes -Correct Side, Site, Position Yes Yes -Correct Procedure Yes Yes -Procedure Performed Yes Yes -Type of Procedure Debridement Debridement -Clinical Debridement Subcutaneous Subcutaneous -Post Debridement Size (cm) - Length 1.6 1.5 -Post Debridement Size (cm) - Width 0.9 1.1 -Post Debridement Size (cm) - Depth 0.3 0.1 -Total Square Cm 1.44 1.65 -Wound/Ulcer Outcome Not Healed Not Healed -Ulcer Cleansing Rinsed/ Rinsed/ Irrigated with Irrigated with Saline Saline -Foul Odor after Cleansing No No -Bioengineered Tissue No No -Bleeding Controlled with Pressure Pressure -Offloading No -Treatment Response Procedure Procedure Tolerated Well Tolerated Well #4 POSTERIOR RLE -Time 09:06 09:04 -Correct Patient Yes Yes -Correct Side, Site, Position Yes Yes -Correct Procedure Yes Yes -Procedure Performed Yes Yes -Type of Procedure Debridement Debridement -Clinical Debridement Subcutaneous Muscle -Post Debridement Size (cm) - Length 5.1 6.8 -Post Debridement Size (cm) - Width 3.0 3.5 -Post Debridement Size (cm) - Depth 0.2 0.2 -Total Square Cm 15.30 23.80 -Wound/Ulcer Outcome Not Healed Not Healed -Ulcer Cleansing Rinsed/ Rinsed/ Irrigated with Irrigated with Saline Saline -Foul Odor after Cleansing No No -Bioengineered Tissue No No -Bleeding Controlled with Pressure Pressure -Offloading No -Treatment Response Procedure Procedure Tolerated Well Tolerated Well #3 R Med LE -Time 09:07 09:04 -Correct Patient Yes Yes -Correct Side, Site, Position Yes Yes -Correct Procedure Yes Yes -Procedure Performed Yes Yes -Type of Procedure Debridement Debridement -Clinical Debridement Subcutaneous Subcutaneous -Post Debridement Size (cm) - Length 2.1 2.1 -Post Debridement Size (cm) - Width 0.9 0.8 -Post Debridement Size (cm) - Depth 0.1 0.2 -Total Square Cm 1.89 1.68 -Wound/Ulcer Outcome Not Healed Not Healed -Ulcer Cleansing Rinsed/ Rinsed/ Irrigated with Irrigated with Saline Saline -Foul Odor after Cleansing No No -Bioengineered Tissue No No -Bleeding Controlled with Pressure Pressure -Offloading No No -Treatment Response Procedure Procedure Tolerated Well Tolerated Well #2 R POLLOCK CLUSTER -Time 09:08 09:05 -Correct Patient Yes Yes -Correct Side, Site, Position Yes Yes -Correct Procedure Yes Yes -Procedure Performed Yes Yes -Type of Procedure Debridement Debridement -Clinical Debridement Subcutaneous Subcutaneous -Post Debridement Size (cm) - Length 11.4 14 -Post Debridement Size (cm) - Width 1.9 4.5 -Post Debridement Size (cm) - Depth 0.2 0.1 -Total Square Cm 21.66 63.0 -Wound/Ulcer Outcome Not Healed Not Healed -Ulcer Cleansing Rinsed/ Rinsed/ Irrigated with Irrigated with Saline Saline -Foul Odor after Cleansing No No -Bioengineered Tissue No No -Bleeding Controlled with Pressure Pressure -Offloading No No -Treatment Response Procedure Procedure Tolerated Well Tolerated Well #1 RIGHT GRT TOE/2ND TOE WEB SPACE -Time 09:09 09:05 -Correct Patient Yes Yes -Correct Side, Site, Position Yes Yes -Correct Procedure Yes Yes -Procedure Performed Yes Yes -Type of Procedure Debridement Debridement -Clinical Debridement Subcutaneous Subcutaneous -Post Debridement Size (cm) - Length 1.6 1.1 -Post Debridement Size (cm) - Width 0.5 0.3 -Post Debridement Size (cm) - Depth 0.6 0.4 -Total Square Cm 0.80 0.33 -Wound/Ulcer Outcome Not Healed Not Healed -Ulcer Cleansing Rinsed/ Rinsed/ Irrigated with Irrigated with Saline Saline -Foul Odor after Cleansing No No -Bioengineered Tissue No No -Bleeding Controlled with Pressure Pressure -Offloading No No -Treatment Response Procedure Procedure Tolerated Well Tolerated Well Pain Scale: 0-10 Numeric Is Patient Pain Free? Yes Yes Yes 05/17/19 10:00 Wound Center Nurse 2 #11 RIGHT MEDIAL FOOT -Time -Correct Patient -Correct Side, Site, Position -Correct Procedure -Procedure Performed -Type of Procedure -Clinical Debridement -Post Debridement Size (cm) - Length -Post Debridement Size (cm) - Width -Post Debridement Size (cm) - Depth -Total Square Cm -Wound/Ulcer Outcome -Ulcer Cleansing -Foul Odor after Cleansing -Bioengineered Tissue -Bleeding Controlled with -Offloading -Treatment Response #8 r Knee -Time 10:01 -Correct Patient Yes -Correct Side, Site, Position Yes -Correct Procedure Yes -Procedure Performed No -Type of Procedure -Clinical Debridement -Post Debridement Size (cm) - Length 0.1 -Post Debridement Size (cm) - Width 0.1 -Post Debridement Size (cm) - Depth 0.1 -Total Square Cm 0.01 -Wound/Ulcer Outcome Not Healed -Ulcer Cleansing Rinsed/ Irrigated with Saline -Foul Odor after Cleansing No -Bioengineered Tissue No -Bleeding Controlled with NA -Offloading No -Treatment Response Procedure Tolerated Well #6 POSTERIOR LLE -Time -Correct Patient -Correct Side, Site, Position -Correct Procedure -Procedure Performed -Type of Procedure -Clinical Debridement -Post Debridement Size (cm) - Length -Post Debridement Size (cm) - Width -Post Debridement Size (cm) - Depth -Total Square Cm -Wound/Ulcer Outcome -Ulcer Cleansing -Foul Odor after Cleansing -Bioengineered Tissue -Bleeding Controlled with -Offloading -Treatment Response #5 LATERAL RLE -Time -Correct Patient -Correct Side, Site, Position -Correct Procedure -Procedure Performed -Type of Procedure -Clinical Debridement -Post Debridement Size (cm) - Length -Post Debridement Size (cm) - Width -Post Debridement Size (cm) - Depth -Total Square Cm -Wound/Ulcer Outcome -Ulcer Cleansing -Foul Odor after Cleansing -Bioengineered Tissue -Bleeding Controlled with -Offloading -Treatment Response #4 POSTERIOR RLE -Time -Correct Patient -Correct Side, Site, Position -Correct Procedure -Procedure Performed -Type of Procedure -Clinical Debridement -Post Debridement Size (cm) - Length -Post Debridement Size (cm) - Width -Post Debridement Size (cm) - Depth -Total Square Cm -Wound/Ulcer Outcome -Ulcer Cleansing -Foul Odor after Cleansing -Bioengineered Tissue -Bleeding Controlled with -Offloading -Treatment Response #3 R Med LE -Time -Correct Patient -Correct Side, Site, Position -Correct Procedure -Procedure Performed -Type of Procedure -Clinical Debridement -Post Debridement Size (cm) - Length -Post Debridement Size (cm) - Width -Post Debridement Size (cm) - Depth -Total Square Cm -Wound/Ulcer Outcome -Ulcer Cleansing -Foul Odor after Cleansing -Bioengineered Tissue -Bleeding Controlled with -Offloading -Treatment Response #2 R POLLOCK CLUSTER -Time -Correct Patient -Correct Side, Site, Position -Correct Procedure -Procedure Performed -Type of Procedure -Clinical Debridement -Post Debridement Size (cm) - Length -Post Debridement Size (cm) - Width -Post Debridement Size (cm) - Depth -Total Square Cm -Wound/Ulcer Outcome -Ulcer Cleansing -Foul Odor after Cleansing -Bioengineered Tissue -Bleeding Controlled with -Offloading -Treatment Response #1 RIGHT GRT TOE/2ND TOE WEB SPACE -Time -Correct Patient -Correct Side, Site, Position -Correct Procedure -Procedure Performed -Type of Procedure -Clinical Debridement -Post Debridement Size (cm) - Length -Post Debridement Size (cm) - Width -Post Debridement Size (cm) - Depth -Total Square Cm -Wound/Ulcer Outcome -Ulcer Cleansing -Foul Odor after Cleansing -Bioengineered Tissue -Bleeding Controlled with -Offloading -Treatment Response Pain Scale: 0-10 Numeric Is Patient Pain Free? 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 -previous bilateral leg fasciotomies and debridements and irrigation performed previously now with right and left leg ulcers with fat and tendon layers exposed. -diabetic neuropathy. -malnutrition suspected. 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 -delayed healing. -gait impairment and fall risk. -other comorbidities. -right knee ulcer Plan: Right knee almost completely healed. Minimal area left. No debridement completed today, Continue pomogran with adaptic every third day. Increased protein intake and optimal Diabetes control also recommended. Continue other wound care management per Dr. Gruber. Follow up in 2 weeks. Patient is currently complex/ Palliative care.
== END 2019-05-21 23:59 ==
LOC: WC 08:00
PROVIDERS: Family Provider Family Medicine; PCP Family Medicine; Visit Provider Podiatrist
DX: E11.622 Type 2 diabetes mellitus with other skin ulcer (principal); E11.42 Type 2 diabetes mellitus with diabetic polyneuropathy; L97.812 Non-pressure chronic ulcer of other part of right lower leg with fat layer exposed; F17.210 Nicotine dependence, cigarettes, uncomplicated; R60.0 Localized edema; E11.621 Type 2 diabetes mellitus with foot ulcer; L97.512 Non-pressure chronic ulcer of other part of right foot with fat layer exposed; L97.412 Non-pressure chronic ulcer of right heel and midfoot with fat layer exposed; L97.822 Non-pressure chronic ulcer of other part of left lower leg with fat layer exposed; L97.813 Non-pressure chronic ulcer of other part of right lower leg with necrosis of muscle
CPT/HCPCS: 11042; 11043; 11045; 11046; 99213; G0463

== ENCOUNTER 2019-06-14 08:00 | Outpatient (RCR) | payer MEDICARE, SELFPAY ==
[2019-05-22 00:32] VITALS: BP 144/91; PULSE 95; RESP 18; TEMP 36.4
[2019-05-31 08:20] VITALS: BP 130/82; PULSE 95; RESP 18; TEMP 35.9
--- NOTE | 2019-05-31 09:24 | PN.PCM_ITS ---
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 Current Visit: Yes Code(s): L97.923 - Non-pressure chronic ulcer of unspecified part of left lower leg with necrosis of muscle (5) Tobacco dependence due to cigarettes Status: Chronic Current Visit: Yes Code(s): F17.210 - Nicotine dependence, cigarettes, uncomplicated (6) Ulcer of left lower extremity with fat layer exposed Status: Chronic Current Visit: Yes Code(s): L97.922 - Non-pressure chronic ulcer of unspecified part of left lower leg with fat layer exposed (7) Type 2 diabetes mellitus with diabetic polyneuropathy Status: Chronic Current Visit: Yes Code(s): E11.42 - Type 2 diabetes mellitus with diabetic polyneuropathy Type of Wound Date of Service: 05/31/19 Chief Complaint: right and left Leg ulcers and right foot ulcers History of Wound: Mr. Arguello is a 64-year-old male with multiple comorbidities follows up for delayed healing ulcers to the right foot as well as bilateral legs. These are chronic and he has had previous remote surgical intervention. He continues to follow with Dr. Gilbert for his right knee ulcer as well. He denies chills, fever, nausea, or vomiting. He presents today with his . He still refuses advanced wound care product application. He refuses hyperbaric oxygen therapy treatment. He elects to proceed with a palliative care plan because he is refusing the other treatment recommendations. His noticed t hat his tendon is continuing to retain moisture even though he has been performing Betadine gauze application. Progress of Wound: No improvement noted to the posterior right leg ulcer with Achilles tendon exposed. Improving other sites. - Physical Exam Vital Signs Temp Pulse Resp BP 96.6 F L 95 18 130/82 H 05/31/19 08:20 05/31/19 08:20 05/31/19 08:20 05/31/19 08:20 General: Alert, Oriented x3, Cooperative, No apparent distress Extremities: No cyanosis, Capillary Refill Less than 3 Seconds, No Calf Tenderness - Negative Errol and Lobato's and bilateral, Diminished Peripheral Pulses, Edema - Mild bilateral lower extremities, - - No distinct pain on palpation bilateral lower extremity's Skin: Ulcer/ Wound - And moisture retained in the distal aspect of the Achilles tendon to the posterior right leg ulcer site. There is no purulence, erythema hamstring, odor, infection bilateral lower 70s. The peripheral skin is hairless and atrophic bilateral. There is continued devitalization there is no peripheral bogginess or fluctuance on palpation. There is also exposed tendon structures to the posterior left leg ulcer site however this is not necrotic Wound Measurements and Assessment WC - Nurse 1 - General Ulcer Measurement Start: 05/31/19 08:20 Freq: Status: Active Protocol: Activity Type Activity Date Activity User E-Sign Co-Sign Detail Recorded Client Recorded Date Recorded By Document 05/31/19 08:20 DL [id number] 05/31/19 08:37 DL 05/31/19 08:20 Wound Center Nurse 1 [Ulcer Assessment] #11 RIGHT MEDIAL FOOT -Current Size (cm) - Length 11.5 -Current Size (cm) - Width 1.6 -Current Size (cm) - Depth 0.2 -Total Square Cm 18.40 -Photo Taken No -Exudate Amt Small -Exudate Type Serosanguineous -Wound Margin Thickened -Granulation Amt Small (1-33%) -Granulation Quality [place] -Necrosis Amt Large (67-100%) -Necrotic Tissue Type Adherent Slough -Structure Exposed N/A -Texture (Lisa-wound Skin Appearance) Scarring -Moisture (Lisa-wound Skin Appearance Dry/Scaly ) -Color (Lisa-wound Skin Appearance) Hemosiderin Staining,Rubor -Temperature (Lisa-wound Skin No Abnormality Appearance) (Pt Warm) -Tenderness on Palpation (Lisa-wound No Skin Appearance) -Ulcer Cleansing Wound Cleanser -Foul Odor after Cleansing No -Anesthetic Used 5% Lidocaine Gel #8 r Knee -Current Size (cm) - Length 0.1 -Current Size (cm) - Width 0.1 -Current Size (cm) - Depth 0.1 -Total Square Cm 0.01 -Photo Taken No -Exudate Amt None Present -Wound Margin Thickened -Granulation Amt Small (1-33%) -Granulation Quality Pale -Necrosis Amt Small (1-33%) -Necrotic Tissue Type Adherent Slough -Structure Exposed N/A -Texture (Lisa-wound Skin Appearance) Scarring -Moisture (Lisa-wound Skin Appearance Dry/Scaly ) -Color (Lisa-wound Skin Appearance) No Abnormality -Temperature (Lisa-wound Skin No Abnormality Appearance) (Pt Warm) -Tenderness on Palpation (Lisa-wound No Skin Appearance) -Ulcer Cleansing Wound Cleanser -Foul Odor after Cleansing No -Anesthetic Used 5% Lidocaine Gel #6 POSTERIOR LLE -Current Size (cm) - Length 14.5 -Current Size (cm) - Width 1.9 -Current Size (cm) - Depth 0.4 -Total Square Cm 27.55 -Photo Taken No -Exudate Amt Small -Exudate Type Serosanguineous -Wound Margin Thickened -Granulation Amt Medium (34-66%) -Granulation Quality [place] -Necrosis Amt Medium (34-66%) -Necrotic Tissue Type Adherent Slough -Structure Exposed N/A -Texture (Lisa-wound Skin Appearance) Scarring -Moisture (Lisa-wound Skin Appearance Dry/Scaly ) -Color (Lisa-wound Skin Appearance) Hemosiderin Staining -Temperature (Lisa-wound Skin No Abnormality Appearance) (Pt Warm) -Tenderness on Palpation (Lisa-wound No Skin Appearance) -Ulcer Cleansing Wound Cleanser -Foul Odor after Cleansing No -Anesthetic Used 5% Lidocaine Gel #5 LATERAL RLE -Current Size (cm) - Length 0.3 -Current Size (cm) - Width 0.2 -Current Size (cm) - Depth 0.2 -Total Square Cm 0.06 -Photo Taken No -Exudate Amt None Present -Wound Margin Thickened -Granulation Amt Small (1-33%) -Granulation Quality [place] -Necrosis Amt Small (1-33%) -Necrotic Tissue Type Adherent Slough -Structure Exposed N/A -Texture (Lisa-wound Skin Appearance) Scarring -Moisture (Lisa-wound Skin Appearance Dry/Scaly ) -Color (Lisa-wound Skin Appearance) Hemosiderin Staining -Temperature (Lisa-wound Skin No Abnormality Appearance) (Pt Warm) -Tenderness on Palpation (Lisa-wound No Skin Appearance) -Ulcer Cleansing Wound Cleanser -Foul Odor after Cleansing No -Anesthetic Used 5% Lidocaine Gel #4 POSTERIOR RLE -Current Size (cm) - Length 7 -Current Size (cm) - Width 3.6 -Current Size (cm) - Depth 0.1 -Total Square Cm 25.2 -Photo Taken No -Exudate Amt Small -Exudate Type Serosanguineous -Wound Margin Distinct, Outline Attached -Granulation Amt Small (1-33%) -Granulation Quality Hyper- granulation,Red -Necrosis Amt Large (67-100%) -Necrotic Tissue Type Adherent Slough -Structure Exposed Fascia -Texture (Lisa-wound Skin Appearance) Scarring -Moisture (Lisa-wound Skin Appearance Dry/Scaly ) -Color (Lisa-wound Skin Appearance) Hemosiderin Staining -Temperature (Lisa-wound Skin No Abnormality Appearance) (Pt Warm) -Tenderness on Palpation (Lisa-wound No Skin Appearance) -Ulcer Cleansing Wound Cleanser -Foul Odor after Cleansing No -Anesthetic Used 5% Lidocaine Gel #3 R Med LE -Current Size (cm) - Length 0.1 -Current Size (cm) - Width 0.1 -Current Size (cm) - Depth 0.1 -Total Square Cm 0.01 -Photo Taken No -Exudate Amt None Present -Wound Margin Thickened -Granulation Amt Large (67-100%) -Granulation Quality Pale -Necrosis Amt None Present (0 %) -Structure Exposed N/A -Texture (Lisa-wound Skin Appearance) Scarring -Moisture (Lisa-wound Skin Appearance Dry/Scaly ) -Color (Lisa-wound Skin Appearance) Hemosiderin Staining -Temperature (Lisa-wound Skin No Abnormality Appearance) (Pt Warm) -Tenderness on Palpation (Lisa-wound No Skin Appearance) -Ulcer Cleansing Wound Cleanser -Foul Odor after Cleansing No -Anesthetic Used 5% Lidocaine Gel #2 R POLLOCK CLUSTER -Current Size (cm) - Length 2.3 -Current Size (cm) - Width 0.2 -Current Size (cm) - Depth 0.1 -Total Square Cm 0.46 -Photo Taken No -Exudate Amt None Present -Wound Margin Flat & Intact -Granulation Amt Small (1-33%) -Granulation Quality [place] -Necrosis Amt Small (1-33%) -Necrotic Tissue Type Adherent Slough -Structure Exposed N/A -Texture (Lisa-wound Skin Appearance) Scarring -Moisture (Lisa-wound Skin Appearance Dry/Scaly ) -Color (Lisa-wound Skin Appearance) Hemosiderin Staining -Temperature (Lisa-wound Skin No Abnormality Appearance) (Pt Warm) -Tenderness on Palpation (Lisa-wound No Skin Appearance) -Ulcer Cleansing Wound Cleanser -Foul Odor after Cleansing No -Anesthetic Used 5% Lidocaine Gel #1 RIGHT GRT TOE/2ND TOE WEB SPACE -Current Size (cm) - Length 0.9 -Current Size (cm) - Width 0.4 -Current Size (cm) - Depth 0.1 -Total Square Cm 0.36 -Photo Taken No -Exudate Amt Small -Exudate Type Serosanguineous -Wound Margin Distinct, Outline Attached -Granulation Amt Small (1-33%) -Granulation Quality Red -Necrosis Amt None Present (0 %) -Structure Exposed N/A -Texture (Lisa-wound Skin Appearance) Scarring -Moisture (Lisa-wound Skin Appearance Dry/Scaly ) -Color (Lisa-wound Skin Appearance) Hemosiderin Staining -Temperature (Lisa-wound Skin No Abnormality Appearance) (Pt Warm) -Tenderness on Palpation (Lisa-wound No Skin Appearance) -Ulcer Cleansing Wound Cleanser -Foul Odor after Cleansing No -Anesthetic Used 5% Lidocaine Gel WC - Nurse 2 - General Ulcer CM Notes Start: 05/31/19 08:20 Freq: Status: Active Protocol: Activity Type Activity Date Activity User E-Sign Co-Sign Detail Recorded Client Recorded Date Recorded By Document 05/31/19 09:02 JAMAL [id number] 05/31/19 09:07 JAMAL 05/31/19 09:02 Wound Center Nurse 2 [Procedure/Treatment] #11 RIGHT MEDIAL FOOT -Time 09:03 -Correct Patient Yes -Correct Side, Site, Position Yes -Correct Procedure Yes -Procedure Performed Yes -Type of Procedure Debridement -Clinical Debridement Subcutaneous -Post Debridement Size (cm) - Length 11.5 -Post Debridement Size (cm) - Width 1.7 -Post Debridement Size (cm) - Depth 0.2 -Total Square Cm 19.55 -Wound/Ulcer Outcome Not Healed -Ulcer Cleansing Rinsed/ Irrigated with Saline -Foul Odor after Cleansing No -Bioengineered Tissue No -Bleeding Controlled with Pressure -Offloading No -Treatment Response Procedure Tolerated Well #6 POSTERIOR LLE -Time 09:03 -Correct Patient Yes -Correct Side, Site, Position Yes -Correct Procedure Yes -Procedure Performed Yes -Type of Procedure Debridement -Clinical Debridement Subcutaneous -Post Debridement Size (cm) - Length 14.5 -Post Debridement Size (cm) - Width 2 -Post Debridement Size (cm) - Depth 0.4 -Total Square Cm 29.0 -Wound/Ulcer Outcome Not Healed -Ulcer Cleansing Rinsed/ Irrigated with Saline -Foul Odor after Cleansing No -Bioengineered Tissue No -Bleeding Controlled with Pressure -Offloading No -Treatment Response Procedure Tolerated Well #5 LATERAL RLE -Time 09:03 -Correct Patient Yes -Correct Side, Site, Position Yes -Correct Procedure Yes -Procedure Performed Yes -Type of Procedure Debridement -Clinical Debridement Subcutaneous -Post Debridement Size (cm) - Length 0.3 -Post Debridement Size (cm) - Width 0.3 -Post Debridement Size (cm) - Depth 0.1 -Total Square Cm 0.09 -Wound/Ulcer Outcome Not Healed -Ulcer Cleansing Rinsed/ Irrigated with Saline -Foul Odor after Cleansing No -Bioengineered Tissue No -Bleeding Controlled with Pressure -Offloading No -Treatment Response Procedure Tolerated Well #4 POSTERIOR RLE -Time 09:04 -Correct Patient Yes -Correct Side, Site, Position Yes -Correct Procedure Yes -Procedure Performed Yes -Type of Procedure Debridement -Clinical Debridement Subcutaneous -Post Debridement Size (cm) - Length 7 -Post Debridement Size (cm) - Width 3.7 -Post Debridement Size (cm) - Depth 0.1 -Total Square Cm 25.9 -Wound/Ulcer Outcome Not Healed -Ulcer Cleansing Rinsed/ Irrigated with Saline -Foul Odor after Cleansing No -Bioengineered Tissue No -Bleeding Controlled with Pressure -Offloading No -Treatment Response Procedure Tolerated Well #3 R Med LE -Time 09:04 -Correct Patient No -Correct Side, Site, Position No -Correct Procedure No -Procedure Performed No -Post Debridement Size (cm) - Length 0 -Post Debridement Size (cm) - Width 0 -Post Debridement Size (cm) - Depth 0 -Total Square Cm 0 -Wound/Ulcer Outcome Healed- Epithelialized #2 R POLLOCK CLUSTER -Time 09:04 -Correct Patient Yes -Correct Side, Site, Position Yes -Correct Procedure Yes -Procedure Performed Yes -Type of Procedure Debridement -Clinical Debridement Subcutaneous -Post Debridement Size (cm) - Length 2.3 -Post Debridement Size (cm) - Width 0.3 -Post Debridement Size (cm) - Depth 0.1 -Total Square Cm 0.69 -Wound/Ulcer Outcome Not Healed -Ulcer Cleansing Rinsed/ Irrigated with Saline -Foul Odor after Cleansing No -Bioengineered Tissue No -Bleeding Controlled with Pressure -Offloading No -Treatment Response Procedure Tolerated Well #1 RIGHT GRT TOE/2ND TOE WEB SPACE -Time 09:05 -Correct Patient Yes -Correct Side, Site, Position Yes -Correct Procedure Yes -Procedure Performed Yes -Type of Procedure Debridement -Clinical Debridement Subcutaneous -Post Debridement Size (cm) - Length 1 -Post Debridement Size (cm) - Width 0.5 -Post Debridement Size (cm) - Depth 0.1 -Total Square Cm 0.5 -Wound/Ulcer Outcome Not Healed -Ulcer Cleansing Rinsed/ Irrigated with Saline -Foul Odor after Cleansing No -Bioengineered Tissue No -Bleeding Controlled with Pressure -Offloading No -Treatment Response Procedure Tolerated Well [See Physician Procedure note for Specifics] Pain Scale: 0-10 Numeric [Pain] -Is Patient Pain Free? Yes Musculoskeletal: No Tenderness to Palpation of Joints or Extremities, Muscle Wasting, - - Compartments soft to palpate bilateral lower extremities Neurological: - - Lack of normal epicritic sensation light touch consistent with neuropathy bilateral lower extremities Psych/Mental Status: Normal Affect, Appropriate Debridement Note Post-Debridement Measurements/Treatment WC - Nurse 2 - General Ulcer CM Notes Start: 05/31/19 08:20 Freq: Status: Active Protocol: Activity Type Activity Date Activity User E-Sign Co-Sign Detail Recorded Client Recorded Date Recorded By Document 05/31/19 09:02 JAMAL [id number] 05/31/19 09:07 JAMAL 05/31/19 09:02 Wound Center Nurse 2 #11 RIGHT MEDIAL FOOT -Time 09:03 -Correct Patient Yes -Correct Side, Site, Position Yes -Correct Procedure Yes -Procedure Performed Yes -Type of Procedure Debridement -Clinical Debridement Subcutaneous -Post Debridement Size (cm) - Length 11.5 -Post Debridement Size (cm) - Width 1.7 -Post Debridement Size (cm) - Depth 0.2 -Total Square Cm 19.55 -Wound/Ulcer Outcome Not Healed -Ulcer Cleansing Rinsed/ Irrigated with Saline -Foul Odor after Cleansing No -Bioengineered Tissue No -Bleeding Controlled with Pressure -Offloading No -Treatment Response Procedure Tolerated Well #6 POSTERIOR LLE -Time 09:03 -Correct Patient Yes -Correct Side, Site, Position Yes -Correct Procedure Yes -Procedure Performed Yes -Type of Procedure Debridement -Clinical Debridement Subcutaneous -Post Debridement Size (cm) - Length 14.5 -Post Debridement Size (cm) - Width 2 -Post Debridement Size (cm) - Depth 0.4 -Total Square Cm 29.0 -Wound/Ulcer Outcome Not Healed -Ulcer Cleansing Rinsed/ Irrigated with Saline -Foul Odor after Cleansing No -Bioengineered Tissue No -Bleeding Controlled with Pressure -Offloading No -Treatment Response Procedure Tolerated Well #5 LATERAL RLE -Time 09:03 -Correct Patient Yes -Correct Side, Site, Position Yes -Correct Procedure Yes -Procedure Performed Yes -Type of Procedure Debridement -Clinical Debridement Subcutaneous -Post Debridement Size (cm) - Length 0.3 -Post Debridement Size (cm) - Width 0.3 -Post Debridement Size (cm) - Depth 0.1 -Total Square Cm 0.09 -Wound/Ulcer Outcome Not Healed -Ulcer Cleansing Rinsed/ Irrigated with Saline -Foul Odor after Cleansing No -Bioengineered Tissue No -Bleeding Controlled with Pressure -Offloading No -Treatment Response Procedure Tolerated Well #4 POSTERIOR RLE -Time 09:04 -Correct Patient Yes -Correct Side, Site, Position Yes -Correct Procedure Yes -Procedure Performed Yes -Type of Procedure Debridement -Clinical Debridement Subcutaneous -Post Debridement Size (cm) - Length 7 -Post Debridement Size (cm) - Width 3.7 -Post Debridement Size (cm) - Depth 0.1 -Total Square Cm 25.9 -Wound/Ulcer Outcome Not Healed -Ulcer Cleansing Rinsed/ Irrigated with Saline -Foul Odor after Cleansing No -Bioengineered Tissue No -Bleeding Controlled with Pressure -Offloading No -Treatment Response Procedure Tolerated Well #3 R Med LE -Time 09:04 -Correct Patient No -Correct Side, Site, Position No -Correct Procedure No -Procedure Performed No -Post Debridement Size (cm) - Length 0 -Post Debridement Size (cm) - Width 0 -Post Debridement Size (cm) - Depth 0 -Total Square Cm 0 -Wound/Ulcer Outcome Healed- Epithelialized #2 R POLLOCK CLUSTER -Time 09:04 -Correct Patient Yes -Correct Side, Site, Position Yes -Correct Procedure Yes -Procedure Performed Yes -Type of Procedure Debridement -Clinical Debridement Subcutaneous -Post Debridement Size (cm) - Length 2.3 -Post Debridement Size (cm) - Width 0.3 -Post Debridement Size (cm) - Depth 0.1 -Total Square Cm 0.69 -Wound/Ulcer Outcome Not Healed -Ulcer Cleansing Rinsed/ Irrigated with Saline -Foul Odor after Cleansing No -Bioengineered Tissue No -Bleeding Controlled with Pressure -Offloading No -Treatment Response Procedure Tolerated Well #1 RIGHT GRT TOE/2ND TOE WEB SPACE -Time 09:05 -Correct Patient Yes -Correct Side, Site, Position Yes -Correct Procedure Yes -Procedure Performed Yes -Type of Procedure Debridement -Clinical Debridement Subcutaneous -Post Debridement Size (cm) - Length 1 -Post Debridement Size (cm) - Width 0.5 -Post Debridement Size (cm) - Depth 0.1 -Total Square Cm 0.5 -Wound/Ulcer Outcome Not Healed -Ulcer Cleansing Rinsed/ Irrigated with Saline -Foul Odor after Cleansing No -Bioengineered Tissue No -Bleeding Controlled with Pressure -Offloading No -Treatment Response Procedure Tolerated Well Pain Scale: 0-10 Numeric Is Patient Pain Free? Yes Wound debrided: lateral ankle Laterality: Right Wound Grade/Stage: Grade 1 Type of Debridement: Excisional debridement Anesthesia Used: 5% Lidocaine Gel Depth: in the subcutaneous layer Percentage of wound debrided: 100 Instrument Used: #15 blade Tissue Removed: fibrous, devitalized subcutaneous, biofilm, slough Severity: Fat Layer Exposed Amount of bleeding with debridement: Mild Bleeding Controlled with: Pressure Patient tolerated procedure well - Additional Wound Wound debrided: Forefoot Laterality: Right Wound Grade/Stage: Grade 3 Type of Debridement: Excisional debridement Anesthesia Used: 5% Lidocaine Gel Depth: in the subcutaneous layer Percentage of wound debrided: 100 Instrument Used: #15 blade Tissue Removed: fibrous, devitalized subcutaneous, biofilm, slough Severity: Fat Layer Exposed Amount of bleeding with debridement: Mild Bleeding Controlled with: Pressure Patient tolerated procedure: Patient tolerated procedure well - Additional Wound Wound debrided: Medial foot including Laterality: Right Wound Grade/Stage: Grade 3 Type of Debridement: Excisional debridement Anesthesia Used: 5% Lidocaine Gel Depth: in the subcutaneous layer Percentage of wound debrided: 100 Instrument Used: #15 blade Tissue Removed: fibrous, devitalized subcutaneous, biofilm, slough Severity: Fat Layer Exposed Amount of bleeding with debridement: Mild Bleeding Controlled with: Pressure Patient tolerated procedure: Patient tolerated procedure well - Additional Wound Wound debrided: Anterior leg Laterality: Right Wound Grade/Stage: Grade 1 Type of Debridement: Excisional debridement Anesthesia Used: 5% Lidocaine Gel Depth: in the subcutaneous layer Percentage of wound debrided: 100 Instrument Used: #15 blade Tissue Removed: fibrous, devitalized subcutaneous, biofilm, slough Severity: Fat Layer Exposed Amount of bleeding with debridement: Mild Bleeding Controlled with: Pressure Patient tolerated procedure: Patient tolerated procedure well - Additional Wound Wound debrided: Posterior leg Laterality: Left Wound Grade/Stage: Grade 2 Type of Debridement: Excisional debridement Anesthesia Used: 5% Lidocaine Gel Depth: in the subcutaneous layer Percentage of wound debrided: 100 Instrument Used: #15 blade Tissue Removed: fibrous, devitalized subcutaneous, biofilm, slough Severity: Fat Layer Exposed Amount of bleeding with debridement: Mild Bleeding Controlled with: Pressure Patient tolerated procedure: Patient tolerated procedure well - Additional Wound Wound debrided: Posterior leg Laterality: Right Wound Grade/Stage: Grade 2 Type of Debridement: Excisional debridement Anesthesia Used: 5% Lidocaine Gel Depth: to muscle Percentage of wound debrided: 100 Instrument Used: #15 blade, Forceps Tissue Removed: fibrous, devitalized subcutaneous and Achilles tendon, biofilm, slough Severity: Necrosis of Muscle Amount of bleeding with debridement: Mild Bleeding Controlled with: Pressure Patient tolerated procedure: Patient tolerated procedure well Assessment/Plan Active Problems (Last Updated 09/28/18 @ 12:41 by Geraldine Steele) Ulcer of right foot with fat layer exposed (Chronic) 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 -previous bilateral leg fasciotomies and debridements and irrigation performed previously now with right and left leg ulcers with fat and tendon layers exposed. -diabetic neuropathy. -malnutrition suspected. 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 -delayed healing. -gait impairment and fall risk. -other comorbidities. -right knee ulcer Plan: I reviewed and discussed his case today. Subcutaneous excisional debridement done as documented above in the nursing clinical panel. Excisional tendon debridement was also performed to the right posterior leg. These procedures were well-tolerated. Continue hydrogel and Adaptic; to change daily due to the reported dryness. For this upcoming week, I recommend Betadine gauze dressing changes daily to the posterior right leg wicked and packed into the distal undermining aspect of this site. There is no gayatri purulence or necrosis seen. If this continues to deteriorate or infection sign develops a culture will be obtained at future visits. It is noted he also does not have any systemic signs of illness. His continued tendon exposure to the posterior bilateral legs is noted in the gave him a prescription for an offloading donut pillow previously. He relates he has been using this. He understands he may need to also prop his heels up on a pillow as long as is not causing any new pressure changes to those sites. Elevate lower extremities when seated and in bed. Continue increased protein intake. He had a previous arterial Doppler scheduled with Dr. Morgan's staff on August 02, 2018 and overall perfusion was confirmed; additional intervention or workup was not recommended. It is also noted that he did have venous Doppler performed with reflux evaluation. He did not have evidence of deep venous thrombosis or venous insufficiency at that time; the vessels were compressible. To continue with nutritional supple mentation optimize healing; I recommend Juan. I recommend he sustained from smoking and alcohol activities to optimize healing as well. His workup for vasculitis and underlying autoimmune disorder has been completed. A punch biopsy was sent during his last surgical intervention on June 10 and this demonstrated inflammatory changes without malignancy. He had initial screening labs and so far he has a negative RA titer, HL of the 27, KEVIN, anti-CCP, and rheumatoid factor. Several his antibody screenings were not reportable. Hyperbaric oxygen therapy was recommended and it is noted his ejection fraction was most recently 50%. He refuses at this time. Dr. Gilbert continues to manage his right knee ulcer including debridements and traditional wound care plan. He refuses surgical intervention at this time to bilateral lower extremities. I answered all of his questions. Additional amputation of the right foot is not planned due to his fairly nonambulatory status. I recommend further follow- up at the wound care center 2 week with me, or call sooner if he has any questions. Compliance at this advanced wound care center was reviewed. 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
--- NOTE | 2019-05-31 13:15 | PCM.WC.PN ---
(1) Skin ulcer of right knee with fat layer exposed Status: Chronic Current Visit: Yes Code(s): L97.812 - Non-pressure chronic ulcer of other part of right lower leg with fat layer exposed (2) Type 2 diabetes mellitus with diabetic polyneuropathy Status: Chronic Current Visit: Yes Code(s): E11.42 - Type 2 diabetes mellitus with diabetic polyneuropathy Type of Wound Date of Service: 05/31/19 Chief Complaint: right and left Leg ulcers and right foot ulcers History of Wound: Mr. Arguello is a 64-year-old male with multiple comorbidities follows up for delayed healing ulcers to the right foot as well as bilateral legs. These are chronic and he has had previous remote surgical intervention. He continues to follow with Dr. Gilbert for his right knee ulcer as well. He denies chills, fever, nausea, or vomiting. He presents today with his . He still refuses advanced wound care product application. He refuses hyperbaric oxygen therapy treatment. He elects to proceed with a palliative care plan because he is refusing the other treatment recommendations. His noticed that his tendon is continuing to retain moisture even though he has been performing Betadine gauze application. Progress of Wound: Right knee is healed. No new concerns at this time. - Physical Exam Vital Signs Temp Pulse Resp BP 96.6 F L 95 18 130/82 H 05/31/19 08:20 05/31/19 08:20 05/31/19 08:20 05/31/19 08:20 General: Alert, Oriented x3, Cooperative, No apparent distress HEENT: Atraumatic, Normocephalic Oral: Moist Mucosa Neck: Supple Extremities: No cyanosis Wound Measurements and Assessment WC - Nurse 1 - General Ulcer Measurement Start: 05/31/19 08:20 Freq: Status: Active Protocol: Activity Type Activity Date Activity User E-Sign Co-Sign Detail Recorded Client Recorded Date Recorded By Document 05/31/19 08:20 DL [id number] 05/31/19 08:37 DL 05/31/19 08:20 Wound Center Nurse 1 [Ulcer Assessment] #11 RIGHT MEDIAL FOOT -Current Size (cm) - Length 11.5 -Current Size (cm) - Width 1.6 -Current Size (cm) - Depth 0.2 -Total Square Cm 18.40 -Photo Taken No -Exudate Amt Small -Exudate Type Serosanguineous -Wound Margin Thickened -Granulation Amt Small (1-33%) -Granulation Quality Calera -Necrosis Amt Large (67-100%) -Necrotic Tissue Type Adherent Slough -Structure Exposed N/A -Texture (Lisa-wound Skin Appearance) Scarring -Moisture (Lisa-wound Skin Appearance Dry/Scaly ) -Color (Lisa-wound Skin Appearance) Hemosiderin Staining,Rubor -Temperature (Lisa-wound Skin No Abnormality Appearance) (Pt Warm) -Tenderness on Palpation (Lisa-wound No Skin Appearance) -Ulcer Cleansing Wound Cleanser -Foul Odor after Cleansing No -Anesthetic Used 5% Lidocaine Gel #8 r Knee -Current Size (cm) - Length 0.1 -Current Size (cm) - Width 0.1 -Current Size (cm) - Depth 0.1 -Total Square Cm 0.01 -Photo Taken No -Exudate Amt None Present -Wound Margin Thickened -Granulation Amt Small (1-33%) -Granulation Quality Pale -Necrosis Amt Small (1-33%) -Necrotic Tissue Type Adherent Slough -Structure Exposed N/A -Texture (Lisa-wound Skin Appearance) Scarring -Moisture (Lisa-wound Skin Appearance Dry/Scaly ) -Color (Lisa-wound Skin Appearance) No Abnormality -Temperature (Lisa-wound Skin No Abnormality Appearance) (Pt Warm) -Tenderness on Palpation (Lisa-wound No Skin Appearance) -Ulcer Cleansing Wound Cleanser -Foul Odor after Cleansing No -Anesthetic Used 5% Lidocaine Gel #6 POSTERIOR LLE -Current Size (cm) - Length 14.5 -Current Size (cm) - Width 1.9 -Current Size (cm) - Depth 0.4 -Total Square Cm 27.55 -Photo Taken No -Exudate Amt Small -Exudate Type Serosanguineous -Wound Margin Thickened -Granulation Amt Medium (34-66%) -Granulation Quality Calera -Necrosis Amt Medium (34-66%) -Necrotic Tissue Type Adherent Slough -Structure Exposed N/A -Texture (Lisa-wound Skin Appearance) Scarring -Moisture (Lisa-wound Skin Appearance Dry/Scaly ) -Color (Lisa-wound Skin Appearance) Hemosiderin Staining -Temperature (Lisa-wound Skin No Abnormality Appearance) (Pt Warm) -Tenderness on Palpation (Lisa-wound No Skin Appearance) -Ulcer Cleansing Wound Cleanser -Foul Odor after Cleansing No -Anesthetic Used 5% Lidocaine Gel #5 LATERAL RLE -Current Size (cm) - Length 0.3 -Current Size (cm) - Width 0.2 -Current Size (cm) - Depth 0.2 -Total Square Cm 0.06 -Photo Taken No -Exudate Amt None Present -Wound Margin Thickened -Granulation Amt Small (1-33%) -Granulation Quality Calera -Necrosis Amt Small (1-33%) -Necrotic Tissue Type Adherent Slough -Structure Exposed N/A -Texture (Lisa-wound Skin Appearance) Scarring -Moisture (Lisa-wound Skin Appearance Dry/Scaly ) -Color (Lisa-wound Skin Appearance) Hemosiderin Staining -Temperature (Lisa-wound Skin No Abnormality Appearance) (Pt Warm) -Tenderness on Palpation (Lisa-wound No Skin Appearance) -Ulcer Cleansing Wound Cleanser -Foul Odor after Cleansing No -Anesthetic Used 5% Lidocaine Gel #4 POSTERIOR RLE -Current Size (cm) - Length 7 -Current Size (cm) - Width 3.6 -Current Size (cm) - Depth 0.1 -Total Square Cm 25.2 -Photo Taken No -Exudate Amt Small -Exudate Type Serosanguineous -Wound Margin Distinct, Outline Attached -Granulation Amt Small (1-33%) -Granulation Quality Hyper- granulation,Red -Necrosis Amt Large (67-100%) -Necrotic Tissue Type Adherent Slough -Structure Exposed Fascia -Texture (Lisa-wound Skin Appearance) Scarring -Moisture (Lisa-wound Skin Appearance Dry/Scaly ) -Color (Lisa-wound Skin Appearance) Hemosiderin Staining -Temperature (Lisa-wound Skin No Abnormality Appearance) (Pt Warm) -Tenderness on Palpation (Lisa-wound No Skin Appearance) -Ulcer Cleansing Wound Cleanser -Foul Odor after Cleansing No -Anesthetic Used 5% Lidocaine Gel #3 R Med LE -Current Size (cm) - Length 0.1 -Current Size (cm) - Width 0.1 -Current Size (cm) - Depth 0.1 -Total Square Cm 0.01 -Photo Taken No -Exudate Amt None Present -Wound Margin Thickened -Granulation Amt Large (67-100%) -Granulation Quality Pale -Necrosis Amt None Present (0 %) -Structure Exposed N/A -Texture (Lisa-wound Skin Appearance) Scarring -Moisture (Lisa-wound Skin Appearance Dry/Scaly ) -Color (Lisa-wound Skin Appearance) Hemosiderin Staining -Temperature (Lisa-wound Skin No Abnormality Appearance) (Pt Warm) -Tenderness on Palpation (Lisa-wound No Skin Appearance) -Ulcer Cleansing Wound Cleanser -Foul Odor after Cleansing No -Anesthetic Used 5% Lidocaine Gel #2 R POLLOCK CLUSTER -Current Size (cm) - Length 2.3 -Current Size (cm) - Width 0.2 -Current Size (cm) - Depth 0.1 -Total Square Cm 0.46 -Photo Taken No -Exudate Amt None Present -Wound Margin Flat & Intact -Granulation Amt Small (1-33%) -Granulation Quality Calera -Necrosis Amt Small (1-33%) -Necrotic Tissue Type Adherent Slough -Structure Exposed N/A -Texture (Lisa-wound Skin Appearance) Scarring -Moisture (Lisa-wound Skin Appearance Dry/Scaly ) -Color (Lisa-wound Skin Appearance) Hemosiderin Staining -Temperature (Lisa-wound Skin No Abnormality Appearance) (Pt Warm) -Tenderness on Palpation (Lisa-wound No Skin Appearance) -Ulcer Cleansing Wound Cleanser -Foul Odor after Cleansing No -Anesthetic Used 5% Lidocaine Gel #1 RIGHT GRT TOE/2ND TOE WEB SPACE -Current Size (cm) - Length 0.9 -Current Size (cm) - Width 0.4 -Current Size (cm) - Depth 0.1 -Total Square Cm 0.36 -Photo Taken No -Exudate Amt Small -Exudate Type Serosanguineous -Wound Margin Distinct, Outline Attached -Granulation Amt Small (1-33%) -Granulation Quality Red -Necrosis Amt None Present (0 %) -Structure Exposed N/A -Texture (Lisa-wound Skin Appearance) Scarring -Moisture (Lisa-wound Skin Appearance Dry/Scaly ) -Color (Lisa-wound Skin Appearance) Hemosiderin Staining -Temperature (Lisa-wound Skin No Abnormality Appearance) (Pt Warm) -Tenderness on Palpation (Lisa-wound No Skin Appearance) -Ulcer Cleansing Wound Cleanser -Foul Odor after Cleansing No -Anesthetic Used 5% Lidocaine Gel WC - Nurse 2 - General Ulcer CM Notes Start: 05/31/19 08:20 Freq: Status: Active Protocol: Activity Type Activity Date Activity User E-Sign Co-Sign Detail Recorded Client Recorded Date Recorded By Document 05/31/19 09:02 JAMAL [id number] 05/31/19 09:07 JAMAL 05/31/19 09:02 Wound Center Nurse 2 [Procedure/Treatment] #11 RIGHT MEDIAL FOOT -Time 09:03 -Correct Patient Yes -Correct Side, Site, Position Yes -Correct Procedure Yes -Procedure Performed Yes -Type of Procedure Debridement -Clinical Debridement Subcutaneous -Post Debridement Size (cm) - Length 11.5 -Post Debridement Size (cm) - Width 1.7 -Post Debridement Size (cm) - Depth 0.2 -Total Square Cm 19.55 -Wound/Ulcer Outcome Not Healed -Ulcer Cleansing Rinsed/ Irrigated with Saline -Foul Odor after Cleansing No -Bioengineered Tissue No -Bleeding Controlled with Pressure -Offloading No -Treatment Response Procedure Tolerated Well #6 POSTERIOR LLE -Time 09:03 -Correct Patient Yes -Correct Side, Site, Position Yes -Correct Procedure Yes -Procedure Performed Yes -Type of Procedure Debridement -Clinical Debridement Subcutaneous -Post Debridement Size (cm) - Length 14.5 -Post Debridement Size (cm) - Width 2 -Post Debridement Size (cm) - Depth 0.4 -Total Square Cm 29.0 -Wound/Ulcer Outcome Not Healed -Ulcer Cleansing Rinsed/ Irrigated with Saline -Foul Odor after Cleansing No -Bioengineered Tissue No -Bleeding Controlled with Pressure -Offloading No -Treatment Response Procedure Tolerated Well #5 LATERAL RLE -Time 09:03 -Correct Patient Yes -Correct Side, Site, Position Yes -Correct Procedure Yes -Procedure Performed Yes -Type of Procedure Debridement -Clinical Debridement Subcutaneous -Post Debridement Size (cm) - Length 0.3 -Post Debridement Size (cm) - Width 0.3 -Post Debridement Size (cm) - Depth 0.1 -Total Square Cm 0.09 -Wound/Ulcer Outcome Not Healed -Ulcer Cleansing Rinsed/ Irrigated with Saline -Foul Odor after Cleansing No -Bioengineered Tissue No -Bleeding Controlled with Pressure -Offloading No -Treatment Response Procedure Tolerated Well #4 POSTERIOR RLE -Time 09:04 -Correct Patient Yes -Correct Side, Site, Position Yes -Correct Procedure Yes -Procedure Performed Yes -Type of Procedure Debridement -Clinical Debridement Subcutaneous -Post Debridement Size (cm) - Length 7 -Post Debridement Size (cm) - Width 3.7 -Post Debridement Size (cm) - Depth 0.1 -Total Square Cm 25.9 -Wound/Ulcer Outcome Not Healed -Ulcer Cleansing Rinsed/ Irrigated with Saline -Foul Odor after Cleansing No -Bioengineered Tissue No -Bleeding Controlled with Pressure -Offloading No -Treatment Response Procedure Tolerated Well #3 R Med LE -Time 09:04 -Correct Patient No -Correct Side, Site, Position No -Correct Procedure No -Procedure Performed No -Post Debridement Size (cm) - Length 0 -Post Debridement Size (cm) - Width 0 -Post Debridement Size (cm) - Depth 0 -Total Square Cm 0 -Wound/Ulcer Outcome Healed- Epithelialized #2 R POLLOCK CLUSTER -Time 09:04 -Correct Patient Yes -Correct Side, Site, Position Yes -Correct Procedure Yes -Procedure Performed Yes -Type of Procedure Debridement -Clinical Debridement Subcutaneous -Post Debridement Size (cm) - Length 2.3 -Post Debridement Size (cm) - Width 0.3 -Post Debridement Size (cm) - Depth 0.1 -Total Square Cm 0.69 -Wound/Ulcer Outcome Not Healed -Ulcer Cleansing Rinsed/ Irrigated with Saline -Foul Odor after Cleansing No -Bioengineered Tissue No -Bleeding Controlled with Pressure -Offloading No -Treatment Response Procedure Tolerated Well #1 RIGHT GRT TOE/2ND TOE WEB SPACE -Time 09:05 -Correct Patient Yes -Correct Side, Site, Position Yes -Correct Procedure Yes -Procedure Performed Yes -Type of Procedure Debridement -Clinical Debridement Subcutaneous -Post Debridement Size (cm) - Length 1 -Post Debridement Size (cm) - Width 0.5 -Post Debridement Size (cm) - Depth 0.1 -Total Square Cm 0.5 -Wound/Ulcer Outcome Not Healed -Ulcer Cleansing Rinsed/ Irrigated with Saline -Foul Odor after Cleansing No -Bioengineered Tissue No -Bleeding Controlled with Pressure -Offloading No -Treatment Response Procedure Tolerated Well [See Physician Procedure note for Specifics] Pain Scale: 0-10 Numeric [Pain] -Is Patient Pain Free? Yes Neurological: Cranial nerves II-XII grossly intact Psych/Mental Status: Normal Affect Debridement Note Post-Debridement Measurements/Treatment WC - Nurse 2 - General Ulcer CM Notes Start: 05/31/19 08:20 Freq: Status: Active Protocol: Activity Type Activity Date Activity User E-Sign Co-Sign Detail Recorded Client Recorded Date Recorded By Document 05/31/19 09:02 JAMAL [id number] 05/31/19 09:07 JAMAL 05/31/19 09:02 Wound Center Nurse 2 #11 RIGHT MEDIAL FOOT -Time 09:03 -Correct Patient Yes -Correct Side, Site, Position Yes -Correct Procedure Yes -Procedure Performed Yes -Type of Procedure Debridement -Clinical Debridement Subcutaneous -Post Debridement Size (cm) - Length 11.5 -Post Debridement Size (cm) - Width 1.7 -Post Debridement Size (cm) - Depth 0.2 -Total Square Cm 19.55 -Wound/Ulcer Outcome Not Healed -Ulcer Cleansing Rinsed/ Irrigated with Saline -Foul Odor after Cleansing No -Bioengineered Tissue No -Bleeding Controlled with Pressure -Offloading No -Treatment Response Procedure Tolerated Well #6 POSTERIOR LLE -Time 09:03 -Correct Patient Yes -Correct Side, Site, Position Yes -Correct Procedure Yes -Procedure Performed Yes -Type of Procedure Debridement -Clinical Debridement Subcutaneous -Post Debridement Size (cm) - Length 14.5 -Post Debridement Size (cm) - Width 2 -Post Debridement Size (cm) - Depth 0.4 -Total Square Cm 29.0 -Wound/Ulcer Outcome Not Healed -Ulcer Cleansing Rinsed/ Irrigated with Saline -Foul Odor after Cleansing No -Bioengineered Tissue No -Bleeding Controlled with Pressure -Offloading No -Treatment Response Procedure Tolerated Well #5 LATERAL RLE -Time 09:03 -Correct Patient Yes -Correct Side, Site, Position Yes -Correct Procedure Yes -Procedure Performed Yes -Type of Procedure Debridement -Clinical Debridement Subcutaneous -Post Debridement Size (cm) - Length 0.3 -Post Debridement Size (cm) - Width 0.3 -Post Debridement Size (cm) - Depth 0.1 -Total Square Cm 0.09 -Wound/Ulcer Outcome Not Healed -Ulcer Cleansing Rinsed/ Irrigated with Saline -Foul Odor after Cleansing No -Bioengineered Tissue No -Bleeding Controlled with Pressure -Offloading No -Treatment Response Procedure Tolerated Well #4 POSTERIOR RLE -Time 09:04 -Correct Patient Yes -Correct Side, Site, Position Yes -Correct Procedure Yes -Procedure Performed Yes -Type of Procedure Debridement -Clinical Debridement Subcutaneous -Post Debridement Size (cm) - Length 7 -Post Debridement Size (cm) - Width 3.7 -Post Debridement Size (cm) - Depth 0.1 -Total Square Cm 25.9 -Wound/Ulcer Outcome Not Healed -Ulcer Cleansing Rinsed/ Irrigated with Saline -Foul Odor after Cleansing No -Bioengineered Tissue No -Bleeding Controlled with Pressure -Offloading No -Treatment Response Procedure Tolerated Well #3 R Med LE -Time 09:04 -Correct Patient No -Correct Side, Site, Position No -Correct Procedure No -Procedure Performed No -Post Debridement Size (cm) - Length 0 -Post Debridement Size (cm) - Width 0 -Post Debridement Size (cm) - Depth 0 -Total Square Cm 0 -Wound/Ulcer Outcome Healed- Epithelialized #2 R POLLOCK CLUSTER -Time 09:04 -Correct Patient Yes -Correct Side, Site, Position Yes -Correct Procedure Yes -Procedure Performed Yes -Type of Procedure Debridement -Clinical Debridement Subcutaneous -Post Debridement Size (cm) - Length 2.3 -Post Debridement Size (cm) - Width 0.3 -Post Debridement Size (cm) - Depth 0.1 -Total Square Cm 0.69 -Wound/Ulcer Outcome Not Healed -Ulcer Cleansing Rinsed/ Irrigated with Saline -Foul Odor after Cleansing No -Bioengineered Tissue No -Bleeding Controlled with Pressure -Offloading No -Treatment Response Procedure Tolerated Well #1 RIGHT GRT TOE/2ND TOE WEB SPACE -Time 09:05 -Correct Patient Yes -Correct Side, Site, Position Yes -Correct Procedure Yes -Procedure Performed Yes -Type of Procedure Debridement -Clinical Debridement Subcutaneous -Post Debridement Size (cm) - Length 1 -Post Debridement Size (cm) - Width 0.5 -Post Debridement Size (cm) - Depth 0.1 -Total Square Cm 0.5 -Wound/Ulcer Outcome Not Healed -Ulcer Cleansing Rinsed/ Irrigated with Saline -Foul Odor after Cleansing No -Bioengineered Tissue No -Bleeding Controlled with Pressure -Offloading No -Treatment Response Procedure Tolerated Well Pain Scale: 0-10 Numeric Is Patient Pain Free? 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 -previous bilateral leg fasciotomies and debridements and irrigation performed previously now with right and left leg ulcers with fat and tendon layers exposed. -diabetic neuropathy. -malnutrition suspected. 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 -delayed healing. -gait impairment and fall risk. -other comorbidities. -right knee ulcer Plan: Right knee is healed. Continue Adaptic over top for 2 weeks. Continue other wound care management per Dr. Gruber. Advised to call with any questions or concerns. This note was generated with [employer] software. It may contain incorrect words, spelling, and punctuation that were not noted in checking the note before signing.
[2019-06-14 08:18] VITALS: BP 132/92; PULSE 98; RESP 18; TEMP 36.6
--- NOTE | 2019-06-14 10:25 | PN.PCM_ITS ---
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: Chronic Current Visit: Yes Code(s): L97.913 - Non-pressure chronic ulcer of unspecified part of right lower leg with necrosis of muscle (4) Ulcer of right lower extremity with fat layer exposed Status: Chronic Current Visit: Yes Code(s): L97.912 - Non-pressure chronic ulcer of unspecified part of right lower leg with fat layer exposed (5) 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 Current Visit: Yes Code(s): L97.923 - Non-pressure chronic ulcer of unspecified part of left lower leg with necrosis of muscle (6) Tobacco dependence due to cigarettes Status: Chronic Current Visit: Yes Code(s): F17.210 - Nicotine dependence, cigarettes, uncomplicated (7) Ulcer of left lower extremity with fat layer exposed Status: Chronic Current Visit: Yes Code(s): L97.922 - Non-pressure chronic ulcer of unspecified part of left lower leg with fat layer exposed (8) Type 2 diabetes mellitus with diabetic polyneuropathy Status: Chronic Current Visit: Yes Code(s): E11.42 - Type 2 diabetes mellitus with diabetic polyneuropathy Type of Wound Date of Service: 06/14/19 Chief Complaint: right and left Leg ulcers and right foot ulcers History of Wound: Mr. Arguello is a 64-year-old male with multiple comorbidities follows up for delayed healing ulcers to the right foot as well as bilateral legs. These are chronic and he has had previous remote surgical intervention. He continues to follow with Dr. Gilbert for his right knee ulcer as well. He denies chills, fever, nausea, or vomiting. He presents today with his . He still refuses advanced wound care product application. He refuses hyperbaric oxygen therapy treatment. He elects to proceed with a palliative care plan because he is refusing the other treatment recommendations. His noticed that his tendon is continuing to retain moisture even though he has been performing Betadine gauze application; this is in regards to the posterior right heel. They deny odor or redness. Progress of Wound: Stable but lack of improvement to posterior right lower leg ulcer site. Improving other ulcer sites - Physical Exam Vital Signs Temp Pulse Resp BP 97.9 F 98 18 132/92 H 06/14/19 08:18 06/14/19 08:18 06/14/19 08:18 06/14/19 08:18 General: Alert Extremities: No cyanosis, Capillary Refill Less than 3 Seconds, No Calf Tenderness - Negative Errol and [place] sign bilateral, Diminished Peripheral Pulses, Edema - Mild bilateral lower extremities, - - Exposed right Achilles devitalized Skin: Ulcer/ Wound - No purulence, erythema, streaking, odor, infection grossly noted. The skin is hairless and atrophic. There is peripheral epithelialization noted to all ulcer sites except the right posterior ulcer site. The exposed Achilles continues to devitalized and this is concern for contamination and it does track along the fascial plane of the distal Achilles Wound Measurements and Assessment WC - Nurse 1 - General Ulcer Measurement Start: 05/31/19 08:20 Freq: Status: Active Protocol: Activity Type Activity Date Activity User E-Sign Co-Sign Detail Recorded Client Recorded Date Recorded By Document 06/14/19 08:18 DL [id number] 06/14/19 08:40 DL 06/14/19 08:18 Wound Center Nurse 1 [Ulcer Assessment] #11 RIGHT MEDIAL FOOT -Current Size (cm) - Length 11.5 -Current Size (cm) - Width 1.8 -Current Size (cm) - Depth 0.4 -Total Square Cm 20.70 -Photo Taken No -Exudate Amt Small -Exudate Type Serosanguineous -Wound Margin Distinct, Outline Attached -Granulation Amt Small (1-33%) -Granulation Quality Red -Necrosis Amt Large (67-100%) -Necrotic Tissue Type Adherent Slough -Structure Exposed N/A -Texture (Lisa-wound Skin Appearance) Scarring -Moisture (Lisa-wound Skin Appearance No Abnormality, ) Dry/Scaly -Color (Lisa-wound Skin Appearance) Hemosiderin Staining -Temperature (Lisa-wound Skin No Abnormality Appearance) (Pt Warm) -Tenderness on Palpation (Lisa-wound No Skin Appearance) -Ulcer Cleansing Wound Cleanser -Foul Odor after Cleansing No -Anesthetic Used 4% Lidocaine Solution #6 POSTERIOR LLE -Current Size (cm) - Length 14.3 -Current Size (cm) - Width 1.8 -Current Size (cm) - Depth 0.3 -Total Square Cm 25.74 -Photo Taken No -Exudate Amt Small -Exudate Type Serosanguineous -Wound Margin Thickened -Granulation Amt Medium (34-66%) -Granulation Quality Red -Necrosis Amt Medium (34-66%) -Necrotic Tissue Type Adherent Slough -Structure Exposed N/A -Texture (Lisa-wound Skin Appearance) Scarring -Moisture (Lisa-wound Skin Appearance Dry/Scaly ) -Color (Lisa-wound Skin Appearance) Hemosiderin Staining,Rubor -Temperature (Lisa-wound Skin No Abnormality Appearance) (Pt Warm) -Tenderness on Palpation (Ilsa-wound No Skin Appearance) -Ulcer Cleansing Wound Cleanser -Foul Odor after Cleansing No -Anesthetic Used 4% Lidocaine Solution #5 LATERAL RLE -Current Size (cm) - Length 1.1 -Current Size (cm) - Width 0.5 -Current Size (cm) - Depth 0.1 -Total Square Cm 0.55 -Photo Taken No -Exudate Amt None Present -Wound Margin Flat & Intact -Granulation Amt Small (1-33%) -Granulation Quality [place] -Necrosis Amt Large (67-100%) -Necrotic Tissue Type Adherent Slough -Structure Exposed N/A -Texture (Lisa-wound Skin Appearance) Scarring -Moisture (Lisa-wound Skin Appearance Dry/Scaly ) -Color (Lisa-wound Skin Appearance) Hemosiderin Staining -Temperature (Lisa-wound Skin No Abnormality Appearance) (Pt Warm) -Tenderness on Palpation (Lisa-wound No Skin Appearance) -Ulcer Cleansing Wound Cleanser -Foul Odor after Cleansing No -Anesthetic Used 4% Lidocaine Solution #4 POSTERIOR RLE -Current Size (cm) - Length 8 -Current Size (cm) - Width 3.6 -Current Size (cm) - Depth 1 -Total Square Cm 28.8 -Photo Taken No -Undermining/Tunneling Starts (O' 5 clock) -Undermining/Tunneling Ends (O'clock) 7 -Maximum Distance (cm) 4 -Exudate Amt Small -Exudate Type Serosanguineous -Wound Margin Thickened & Rolled Under -Granulation Amt Medium (34-66%) -Granulation Quality [place],Red -Necrosis Amt Medium (34-66%) -Necrotic Tissue Type Adherent Slough -Structure Exposed Tendon,Fascia -Texture (Lisa-wound Skin Appearance) Scarring -Color (Lisa-wound Skin Appearance) Hemosiderin Staining -Temperature (Lisa-wound Skin No Abnormality Appearance) (Pt Warm) -Tenderness on Palpation (Lisa-wound No Skin Appearance) -Ulcer Cleansing Wound Cleanser -Foul Odor after Cleansing No -Anesthetic Used 4% Lidocaine Solution #2 R POLLOCK CLUSTER -Current Size (cm) - Length 8.2 -Current Size (cm) - Width 0.8 -Current Size (cm) - Depth 0.1 -Total Square Cm 6.56 -Exudate Amt None Present -Wound Margin Thickened -Granulation Amt Medium (34-66%) -Granulation Quality [place] -Necrosis Amt Medium (34-66%) -Necrotic Tissue Type Adherent Slough -Structure Exposed N/A -Texture (Lisa-wound Skin Appearance) Scarring -Moisture (Lisa-wound Skin Appearance Dry/Scaly ) -Color (Lisa-wound Skin Appearance) Hemosiderin Staining -Temperature (Lisa-wound Skin No Abnormality Appearance) (Pt Warm) -Tenderness on Palpation (Lisa-wound No Skin Appearance) -Ulcer Cleansing Wound Cleanser -Foul Odor after Cleansing No -Anesthetic Used 4% Lidocaine Solution #1 RIGHT GRT TOE/2ND TOE WEB SPACE -Current Size (cm) - Length 0.8 -Current Size (cm) - Width 0.5 -Current Size (cm) - Depth 0.2 -Total Square Cm 0.40 -Exudate Amt None Present -Wound Margin Distinct, Outline Attached -Granulation Amt Large (67-100%) -Granulation Quality [place] -Necrosis Amt Small (1-33%) -Necrotic Tissue Type Adherent Slough -Structure Exposed N/A -Texture (Lisa-wound Skin Appearance) Scarring -Moisture (Lisa-wound Skin Appearance Dry/Scaly ) -Color (Lisa-wound Skin Appearance) Hemosiderin Staining -Temperature (Lisa-wound Skin No Abnormality Appearance) (Pt Warm) -Tenderness on Palpation (Lisa-wound No Skin Appearance) -Ulcer Cleansing Wound Cleanser -Foul Odor after Cleansing No -Anesthetic Used 4% Lidocaine Solution [Edema Assessment] -Right Calf (cm) 35.5 -Right Ankle (cm) 21.2 -Left Calf (cm) 34 -Left Ankle (cm) 19.5 Musculoskeletal: No Tenderness to Palpation of Joints or Extremities, Muscle Wasting, - - Compartment soft. No bogginess or fluctuance bilateral Neurological: - - Lack of normal epicritic sensation light touch Psych/Mental Status: Normal Affect, Appropriate Debridement Note Post-Debridement Measurements/Treatment WC - Nurse 2 - General Ulcer CM Notes Start: 05/31/19 08:20 Freq: Status: Active Protocol: Activity Type Activity Date Activity User E-Sign Co-Sign Detail Recorded Client Recorded Date Recorded By Document 05/31/19 09:02 JAMAL [id number] 05/31/19 09:07 JAMAL 05/31/19 09:02 Wound Center Nurse 2 #11 RIGHT MEDIAL FOOT -Time 09:03 -Correct Patient Yes -Correct Side, Site, Position Yes -Correct Procedure Yes -Procedure Performed Yes -Type of Procedure Debridement -Clinical Debridement Subcutaneous -Post Debridement Size (cm) - Length 11.5 -Post Debridement Size (cm) - Width 1.7 -Post Debridement Size (cm) - Depth 0.2 -Total Square Cm 19.55 -Wound/Ulcer Outcome Not Healed -Ulcer Cleansing Rinsed/ Irrigated with Saline -Foul Odor after Cleansing No -Bioengineered Tissue No -Bleeding Controlled with Pressure -Offloading No -Treatment Response Procedure Tolerated Well #6 POSTERIOR LLE -Time 09:03 -Correct Patient Yes -Correct Side, Site, Position Yes -Correct Procedure Yes -Procedure Performed Yes -Type of Procedure Debridement -Clinical Debridement Subcutaneous -Post Debridement Size (cm) - Length 14.5 -Post Debridement Size (cm) - Width 2 -Post Debridement Size (cm) - Depth 0.4 -Total Square Cm 29.0 -Wound/Ulcer Outcome Not Healed -Ulcer Cleansing Rinsed/ Irrigated with Saline -Foul Odor after Cleansing No -Bioengineered Tissue No -Bleeding Controlled with Pressure -Offloading No -Treatment Response Procedure Tolerated Well #5 LATERAL RLE -Time 09:03 -Correct Patient Yes -Correct Side, Site, Position Yes -Correct Procedure Yes -Procedure Performed Yes -Type of Procedure Debridement -Clinical Debridement Subcutaneous -Post Debridement Size (cm) - Length 0.3 -Post Debridement Size (cm) - Width 0.3 -Post Debridement Size (cm) - Depth 0.1 -Total Square Cm 0.09 -Wound/Ulcer Outcome Not Healed -Ulcer Cleansing Rinsed/ Irrigated with Saline -Foul Odor after Cleansing No -Bioengineered Tissue No -Bleeding Controlled with Pressure -Offloading No -Treatment Response Procedure Tolerated Well #4 POSTERIOR RLE -Time 09:04 -Correct Patient Yes -Correct Side, Site, Position Yes -Correct Procedure Yes -Procedure Performed Yes -Type of Procedure Debridement -Clinical Debridement Subcutaneous -Post Debridement Size (cm) - Length 7 -Post Debridement Size (cm) - Width 3.7 -Post Debridement Size (cm) - Depth 0.1 -Total Square Cm 25.9 -Wound/Ulcer Outcome Not Healed -Ulcer Cleansing Rinsed/ Irrigated with Saline -Foul Odor after Cleansing No -Bioengineered Tissue No -Bleeding Controlled with Pressure -Offloading No -Treatment Response Procedure Tolerated Well #3 R Med LE -Time 09:04 -Correct Patient No -Correct Side, Site, Position No -Correct Procedure No -Procedure Performed No -Post Debridement Size (cm) - Length 0 -Post Debridement Size (cm) - Width 0 -Post Debridement Size (cm) - Depth 0 -Total Square Cm 0 -Wound/Ulcer Outcome Healed- Epithelialized #2 R POLLOCK CLUSTER -Time 09:04 -Correct Patient Yes -Correct Side, Site, Position Yes -Correct Procedure Yes -Procedure Performed Yes -Type of Procedure Debridement -Clinical Debridement Subcutaneous -Post Debridement Size (cm) - Length 2.3 -Post Debridement Size (cm) - Width 0.3 -Post Debridement Size (cm) - Depth 0.1 -Total Square Cm 0.69 -Wound/Ulcer Outcome Not Healed -Ulcer Cleansing Rinsed/ Irrigated with Saline -Foul Odor after Cleansing No -Bioengineered Tissue No -Bleeding Controlled with Pressure -Offloading No -Treatment Response Procedure Tolerated Well #1 RIGHT GRT TOE/2ND TOE WEB SPACE -Time 09:05 -Correct Patient Yes -Correct Side, Site, Position Yes -Correct Procedure Yes -Procedure Performed Yes -Type of Procedure Debridement -Clinical Debridement Subcutaneous -Post Debridement Size (cm) - Length 1 -Post Debridement Size (cm) - Width 0.5 -Post Debridement Size (cm) - Depth 0.1 -Total Square Cm 0.5 -Wound/Ulcer Outcome Not Healed -Ulcer Cleansing Rinsed/ Irrigated with Saline -Foul Odor after Cleansing No -Bioengineered Tissue No -Bleeding Controlled with Pressure -Offloading No -Treatment Response Procedure Tolerated Well Pain Scale: 0-10 Numeric Is Patient Pain Free? Yes Wound debrided: foot near toes Laterality: Right Wound Grade/Stage: grade 3 Type of Debridement: Excisional debridement Anesthesia Used: 5% Lidocaine Gel Depth: in the subcutaneous layer Percentage of wound debrided: 100 Instrument Used: #15 blade Tissue Removed: fibrous, devitalized subcutaneous, biofilm, slough Severity: Fat Layer Exposed Amount of bleeding with debridement: Mild Bleeding Controlled with: Pressure Patient tolerated procedure well - Additional Wound Wound debrided: lateral ankle Laterality: Right Wound Grade/Stage: grade 1 Type of Debridement: Excisional debridement Anesthesia Used: 4% Lidocaine Solution Depth: in the subcutaneous layer Percentage of wound debrided: 100 Instrument Used: #15 blade Tissue Removed: fibrous, devitalized subcutaneous, biofilm, slough Severity: Fat Layer Exposed Amount of bleeding with debridement: Mild Bleeding Controlled with: Pressure Patient tolerated procedure: Patient tolerated procedure well - Additional Wound Wound debrided: anterior leg Laterality: Right Wound Grade/Stage: grade 1 Type of Debridement: Excisional debridement Anesthesia Used: 5% Lidocaine Gel Depth: in the subcutaneous layer Percentage of wound debrided: 100 Instrument Used: #15 blade Tissue Removed: fibrous, devitalized subcutaneous, biofilm, slough Severity: Fat Layer Exposed Amount of bleeding with debridement: Mild Bleeding Controlled with: Pressure Patient tolerated procedure: Patient tolerated procedure well - Additional Wound Wound debrided: posterior leg Laterality: Right Wound Grade/Stage: grade 2 Type of Debridement: Excisional debridement Anesthesia Used: 5% Lidocaine Gel Depth: to muscle Percentage of wound debrided: 80 - subcutaneous, 20 - devitalized tedon Instrument Used: #15 blade, Forceps Tissue Removed: fibrous, devitalized subcutaneous and tendon, biofilm, slough Severity: Necrosis of Muscle Amount of bleeding with debridement: Mild Bleeding Controlled with: Pressure Patient tolerated procedure: Patient tolerated procedure well - Additional Wound Wound debrided: posterior leg Laterality: Left Wound Grade/Stage: grade 2 Type of Debridement: Excisional debridement Anesthesia Used: 4% Lidocaine Solution Depth: in the subcutaneous layer Percentage of wound debrided: 100 Instrument Used: #15 blade Tissue Removed: fibrous, devitalized subcutaneous, biofilm, slough Severity: Fat Layer Exposed Amount of bleeding with debridement: Mild Bleeding Controlled with: Pressure Patient tolerated procedure: Patient tolerated procedure well Assessment/Plan Active Problems (Last Updated 09/28/18 @ 12:41 by Geraldine Steele) Ulcer of right foot with fat layer exposed (Chronic) 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 -open second and third ray resection 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 -previous bilateral leg fasciotomies and debridements and irrigation performed previously now with right and left leg ulcers with fat and tendon layers exposed. -diabetic neuropathy. -malnutrition suspected. 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 -delayed healing. -gait impairment and fall risk. -other comorbidities. -right knee ulcer healed Plan: I reviewed and discussed his case today. Subcutaneous excisional debridement done as documented above in the nursing clinical panel. Excisional tendon debridement was also performed to the right posterior leg. The devitalized tendon was sent for aerobic, anaerobic, MRSA PCR testing to evaluate for any infection or bacterial contamination which may explain the delayed healing here. I also recommended that he may need further work-up with x-rays or even more aggressive debridement in the clinic where surgical setting. These procedures were well-tolerated. Continue [place] Ag: To change daily due to the reported dryness. For this upcoming week, I recommend Betadine gauze dressing changes daily to the posterior right leg wicked and packed into the distal undermining aspect of this site. There is no gayatri purulence or necrosis seen. It is noted he also does not have any systemic signs of illness. His continued tendon exposure to the posterior bilateral legs is noted in the gave him a prescription for an offloading donut pillow previously. He relates he has been using this. He understands he may need to also prop his heels up on a pillow as long as is not causing any new pressure changes to those sites. Elevate lower extremities when seated and in bed. Continue increased protein intake. He had a previous arterial Doppler scheduled with Dr. Morgan's staff on August 02, 2018 and overall perfusion was confirmed; additional intervention or workup was not recommended. It is also noted that he did have venous Doppler performed with reflux evaluation. He did not have evidence of deep venous thrombosis or venous insufficiency at that time; the vessels were compressible. To continue with nutritional supplementation optimize healing; I recommend Juan. I recommend he sustained from smoking and alcohol activities to optimize healing as well. His workup for vasculitis and underlying autoimmune disorder has been completed. A punch biopsy was sent during his last surgical intervention on June 10 and this demonstrated inflammatory changes without malignancy. He had initial screening labs and so far he has a negative RA titer, HL of the 27, KEVIN, anti-CCP, and rheumatoid factor. Several his antibody screenings were not reportable. Hyperbaric oxygen therapy was recommended and it is noted his ejection fraction was most recently 50%. He refuses at this time. Dr. Gilbert continues to manage his right knee ulcer including debridements and traditional wound care plan. He refuses surgical intervention at this time to bilateral lower extremities. I answered all of his questions. Additional amputation of the right foot is not planned due to his fairly nonambulatory status. I recommend further follow-up at the wound care center 1 week with me, or call sooner if he has any questions. Compliance at this advanced wound care center was reviewed. 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
[2019-06-14 18:58] LABS: M R Staph aureus DNA By PCR Negative (Negative); Probe Check PASS; Specimen Processing Control PASS; Staph aureus DNA By PCR POSITIVE (Negative)
[2019-06-21 08:16] VITALS: BP 132/83; PULSE 108; RESP 18; TEMP 36.2
--- NOTE | 2019-06-21 10:53 | PCM.WC.PN ---
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 Status: Chronic Code(s): L97.913 - Non-pressure chronic ulcer of unspecified part of right lower leg with necrosis of muscle (4) Ulcer of right lower extremity with fat layer exposed Status: Chronic Code(s): L97.912 - Non-pressure chronic ulcer of unspecified part of right lower leg with fat layer exposed (5) 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 Code(s): L97.923 - Non-pressure chronic ulcer of unspecified part of left lower leg with necrosis of muscle (6) Tobacco dependence due to cigarettes Status: Chronic Code(s): F17.210 - Nicotine dependence, cigarettes, uncomplicated (7) Ulcer of left lower extremity with fat layer exposed Status: Chronic Code(s): L97.922 - Non-pressure chronic ulcer of unspecified part of left lower leg with fat layer exposed (8) Type 2 diabetes mellitus with diabetic polyneuropathy Status: Chronic Code(s): E11.42 - Type 2 diabetes mellitus with diabetic polyneuropathy Type of Wound Date of Service: 06/21/19 Chief Complaint: right and left Leg ulcers and right foot ulcers History of Wound: Mr. Arguello is a 64-year-old male with multiple comorbidities follows up for delayed healing ulcers to the right foot as well as bilateral legs. These are chronic and he has had previous remote surgical intervention. He denies chills, fever, nausea, or vomiting. He presents today with his . He still refuses advanced wound care product application. He refuses hyperbaric oxygen therapy treatment. He elects to proceed with a palliative care plan because he is refusing the other treatment recommendations. His noticed that his tendon is continuing to retain moisture even though he has been performing Betadine gauze application; this is in regards to the posterior right heel. His reports that the ulcer site in the back of the right leg is getting larger. He takes antibiotic Augmentin without diarrhea. They deny odor or redness. Progress of Wound: Status post her right leg ulcer site. Improving other ulcer sites - Physical Exam Vital Signs Temp Pulse Resp BP 97.1 F L 108 H 18 132/83 H 06/21/19 08:16 06/21/19 08:16 06/21/19 08:16 06/21/19 08:16 General: Alert, Oriented x3, Cooperative, No apparent distress Extremities: No cyanosis, Capillary Refill Less than 3 Seconds, No Calf Tenderness, Diminished Peripheral Pulses, Edema Skin: Ulcer/ Wound - There is no gayatri purulence, necrosis, streaking, erythema bilateral. The peripheral skin is hairless and atrophic. The posterior right leg ulcer site has exposed devitalized Achilles tendon with liquefied formation and odor. There is no probe to bone. Wound Measurements and Assessment WC - Nurse 1 - General Ulcer Measurement Start: 05/31/19 08:20 Freq: Status: Active Protocol: Activity Type Activity Date Activity User E-Sign Co-Sign Detail Recorded Client Recorded Date Recorded By Document 06/21/19 08:16 JAMAL [id number] 06/21/19 08:41 06/21/19 08:16 Wound Center Nurse 1 [Ulcer Assessment] #11 RIGHT MEDIAL FOOT -Combined with other wound No -Current Size (cm) - Length 11.5 -Current Size (cm) - Width 1.7 -Current Size (cm) - Depth 0.2 -Total Square Cm 19.55 -Photo Taken No -Undermining/Tunneling No -Circular Undermining No -Wound Margin Flat & Intact -Granulation Amt Medium (34-66%) -Granulation Quality Red -Slough/Fibrin Yes -Necrosis Amt Medium (34-66%) -Necrotic Tissue Type Eschar -Structure Exposed N/A -Texture (Lisa-wound Skin Appearance) Assessed, Localized Edema ,Scarring -Moisture (Lisa-wound Skin Appearance Assessed,Dry/ ) Scaly -Color (Lisa-wound Skin Appearance) Assessed -Temperature (Lisa-wound Skin No Abnormality Appearance) (Pt Warm) -Tenderness on Palpation (Lisa-wound No Skin Appearance) -Ulcer Cleansing Wound Cleanser -Foul Odor after Cleansing No -Anesthetic Used 4% Lidocaine Solution #6 POSTERIOR LLE -Combined with other wound No -Current Size (cm) - Length 12.3 -Current Size (cm) - Width 1.8 -Current Size (cm) - Depth 0.4 -Total Square Cm 22.14 -Photo Taken No -Epithelialization Small 1-33% -Tunneling No -Undermining/Tunneling No -Circular Undermining No -Exudate Amt Small -Exudate Type Serosanguineous -Wound Margin Flat & Intact -Granulation Amt Medium (34-66%) -Granulation Quality Kennard -Slough/Fibrin Yes -Necrosis Amt Medium (34-66%) -Necrotic Tissue Type Adherent Slough -Structure Exposed N/A -Texture (Lisa-wound Skin Appearance) Assessed, Localized Edema ,Scarring -Moisture (Lisa-wound Skin Appearance Assessed,Dry/ ) Scaly -Color (Lisa-wound Skin Appearance) Assessed -Temperature (Lisa-wound Skin No Abnormality Appearance) (Pt Warm) -Tenderness on Palpation (Lisa-wound No Skin Appearance) -Ulcer Cleansing Wound Cleanser -Foul Odor after Cleansing No -Anesthetic Used 4% Lidocaine Solution #5 LATERAL RLE -Combined with other wound No -Current Size (cm) - Length 0.3 -Current Size (cm) - Width 0.5 -Current Size (cm) - Depth 0.1 -Total Square Cm 0.15 -Photo Taken No -Epithelialization Small 1-33% -Tunneling No -Undermining/Tunneling No -Circular Undermining No -Exudate Amt Small -Exudate Type Serosanguineous -Wound Margin Indistinct, Non -Visible -Granulation Amt Small (1-33%) -Granulation Quality Kennard -Slough/Fibrin Yes -Necrosis Amt Large (67-100%) -Necrotic Tissue Type Adherent Slough -Structure Exposed N/A -Texture (Lisa-wound Skin Appearance) Assessed -Moisture (Lisa-wound Skin Appearance Assessed,Dry/ ) Scaly -Color (Lisa-wound Skin Appearance) Assessed -Temperature (Lisa-wound Skin No Abnormality Appearance) (Pt Warm) -Tenderness on Palpation (Lisa-wound No Skin Appearance) -Ulcer Cleansing Wound Cleanser -Foul Odor after Cleansing No -Anesthetic Used 4% Lidocaine Solution #4 POSTERIOR RLE -Combined with other wound No -Current Size (cm) - Length 10.5 -Current Size (cm) - Width 3.5 -Current Size (cm) - Depth 1.7 -Total Square Cm 36.75 -Photo Taken No -Epithelialization Large 67-100% -Tunneling No -Undermining/Tunneling No -Circular Undermining No -Exudate Type Serosanguineous -Wound Margin Flat & Intact -Granulation Amt None Present (0 %) -Slough/Fibrin Yes -Necrosis Amt Large (67-100%) -Necrotic Tissue Type Adherent Slough -Structure Exposed Tendon -Texture (Lisa-wound Skin Appearance) Assessed, Localized Edema -Moisture (Lisa-wound Skin Appearance Assessed,Dry/ ) Scaly -Color (Lisa-wound Skin Appearance) Assessed, Erythema -Temperature (Lisa-wound Skin No Abnormality Appearance) (Pt Warm) -Tenderness on Palpation (Lisa-wound Yes Skin Appearance) -Ulcer Cleansing Wound Cleanser -Foul Odor after Cleansing No -Anesthetic Used 4% Lidocaine Solution #2 R POLLOCK CLUSTER -Combined with other wound No -Current Size (cm) - Length 8 -Current Size (cm) - Width 3.2 -Current Size (cm) - Depth 0.1 -Total Square Cm 25.6 -Photo Taken No -Epithelialization Small 1-33% -Tunneling No -Undermining/Tunneling No -Circular Undermining No -Exudate Amt Small -Exudate Type Serosanguineous -Wound Margin Flat & Intact -Granulation Amt Medium (34-66%) -Granulation Quality Red -Slough/Fibrin Yes -Necrosis Amt Medium (34-66%) -Necrotic Tissue Type Adherent Slough -Structure Exposed N/A -Texture (Lisa-wound Skin Appearance) Assessed, Localized Edema ,Scarring -Moisture (Lisa-wound Skin Appearance Assessed,Dry/ ) Scaly -Color (Lisa-wound Skin Appearance) Assessed -Temperature (Lisa-wound Skin No Abnormality Appearance) (Pt Warm) -Tenderness on Palpation (Lisa-wound No Skin Appearance) -Ulcer Cleansing Wound Cleanser -Foul Odor after Cleansing No -Anesthetic Used 4% Lidocaine Solution #1 RIGHT GRT TOE/2ND TOE WEB SPACE -Combined with other wound No -Current Size (cm) - Length 1.2 -Current Size (cm) - Width 0.3 -Current Size (cm) - Depth 0.6 -Total Square Cm 0.36 -Photo Taken No -Epithelialization None Present -Tunneling No -Undermining/Tunneling No -Circular Undermining No -Exudate Amt Small -Exudate Type Serosanguineous -Wound Margin Flat & Intact -Granulation Amt None Present (0 %) -Slough/Fibrin Yes -Necrosis Amt Large (67-100%) -Necrotic Tissue Type Adherent Slough -Structure Exposed N/A -Texture (Lisa-wound Skin Appearance) Assessed -Moisture (Lisa-wound Skin Appearance Assessed,Dry/ ) Scaly -Color (Lisa-wound Skin Appearance) Assessed -Temperature (Lisa-wound Skin No Abnormality Appearance) (Pt Warm) -Tenderness on Palpation (Lisa-wound No Skin Appearance) -Ulcer Cleansing Wound Cleanser -Foul Odor after Cleansing No -Anesthetic Used 4% Lidocaine Solution [Edema Assessment] -Lower Limb Edema Present Yes -Right Calf (cm) 36.8 -Right Ankle (cm) 22.0 -Left Calf (cm) 34.5 -Left Ankle (cm) 20.2 Musculoskeletal: No Tenderness to Palpation of Joints or Extremities, Muscle Wasting, - - Compartment soft bilateral lower extremities Neurological: - - Lack of normal epicritic sensation light touch consistent with neuropathy Psych/Mental Status: Normal Affect, Appropriate Debridement Note Post-Debridement Measurements/Treatment WC - Nurse 2 - General Ulcer CM Notes Start: 05/31/19 08:20 Freq: Status: Active Protocol: Activity Type Activity Date Activity User E-Sign Co-Sign Detail Recorded Client Recorded Date Recorded By Document 05/31/19 09:02 [id number] 05/31/19 09:07 Document 06/14/19 17:25 DL [id number] 06/14/19 17:29 DL 05/31/19 06/14/19 09:02 17:25 Wound Center Nurse 2 #11 RIGHT MEDIAL FOOT -Time 09:03 08:30 -Correct Patient Yes Yes -Correct Side, Site, Position Yes Yes -Correct Procedure Yes Yes -Procedure Performed Yes Yes -Type of Procedure Debridement Debridement -Clinical Debridement Subcutaneous Subcutaneous -Post Debridement Size (cm) - Length 11.5 11.6 -Post Debridement Size (cm) - Width 1.7 1.9 -Post Debridement Size (cm) - Depth 0.2 0.5 -Total Square Cm 19.55 22.04 -Wound/Ulcer Outcome Not Healed Not Healed -Ulcer Cleansing Rinsed/ Rinsed/ Irrigated with Irrigated with Saline Saline -Foul Odor after Cleansing No No -Bioengineered Tissue No No -Bleeding Controlled with Pressure Pressure -Offloading No Yes -Treatment Response Procedure Procedure Tolerated Well Tolerated Well #6 POSTERIOR LLE -Time 09:03 08:30 -Correct Patient Yes Yes -Correct Side, Site, Position Yes Yes -Correct Procedure Yes Yes -Procedure Performed Yes Yes -Type of Procedure Debridement Debridement -Clinical Debridement Subcutaneous Subcutaneous -Post Debridement Size (cm) - Length 14.5 14.4 -Post Debridement Size (cm) - Width 2 1.9 -Post Debridement Size (cm) - Depth 0.4 0.3 -Total Square Cm 29.0 27.36 -Wound/Ulcer Outcome Not Healed Not Healed -Ulcer Cleansing Rinsed/ Rinsed/ Irrigated with Irrigated with Saline Saline -Foul Odor after Cleansing No No -Bioengineered Tissue No No -Bleeding Controlled with Pressure Pressure -Offloading No Yes -Treatment Response Procedure Procedure Tolerated Well Tolerated Well #5 LATERAL RLE -Time 09:03 08:30 -Correct Patient Yes Yes -Correct Side, Site, Position Yes Yes -Correct Procedure Yes Yes -Procedure Performed Yes Yes -Type of Procedure Debridement Debridement -Clinical Debridement Subcutaneous Subcutaneous -Post Debridement Size (cm) - Length 0.3 1.2 -Post Debridement Size (cm) - Width 0.3 0.6 -Post Debridement Size (cm) - Depth 0.1 0.1 -Total Square Cm 0.09 0.72 -Wound/Ulcer Outcome Not Healed Not Healed -Ulcer Cleansing Rinsed/ Rinsed/ Irrigated with Irrigated with Saline Saline -Foul Odor after Cleansing No No -Bioengineered Tissue No No -Bleeding Controlled with Pressure Pressure -Offloading No Yes -Treatment Response Procedure Procedure Tolerated Well Tolerated Well #4 POSTERIOR RLE -Time 09:04 08:30 -Correct Patient Yes Yes -Correct Side, Site, Position Yes Yes -Correct Procedure Yes Yes -Procedure Performed Yes Yes -Type of Procedure Debridement Debridement -Clinical Debridement Subcutaneous Selective -Post Debridement Size (cm) - Length 7 8.1 -Post Debridement Size (cm) - Width 3.7 3.7 -Post Debridement Size (cm) - Depth 0.1 1.0 -Total Square Cm 25.9 29.97 -Wound/Ulcer Outcome Not Healed Not Healed -Ulcer Cleansing Rinsed/ Rinsed/ Irrigated with Irrigated with Saline Saline -Foul Odor after Cleansing No No -Bioengineered Tissue No No -Bleeding Controlled with Pressure Pressure -Offloading No Yes -Treatment Response Procedure Procedure Tolerated Well Tolerated Well #3 R Med LE -Time 09:04 -Correct Patient No -Correct Side, Site, Position No -Correct Procedure No -Procedure Performed No -Post Debridement Size (cm) - Length 0 -Post Debridement Size (cm) - Width 0 -Post Debridement Size (cm) - Depth 0 -Total Square Cm 0 -Wound/Ulcer Outcome Healed- Epithelialized #2 R POLLOCK CLUSTER -Time 09:04 08:30 -Correct Patient Yes Yes -Correct Side, Site, Position Yes Yes -Correct Procedure Yes Yes -Procedure Performed Yes Yes -Type of Procedure Debridement Debridement -Clinical Debridement Subcutaneous Subcutaneous -Post Debridement Size (cm) - Length 2.3 8.3 -Post Debridement Size (cm) - Width 0.3 0.9 -Post Debridement Size (cm) - Depth 0.1 0.1 -Total Square Cm 0.69 7.47 -Wound/Ulcer Outcome Not Healed Not Healed -Ulcer Cleansing Rinsed/ Rinsed/ Irrigated with Irrigated with Saline Saline -Foul Odor after Cleansing No No -Bioengineered Tissue No No -Bleeding Controlled with Pressure Pressure -Offloading No Yes -Treatment Response Procedure Procedure Tolerated Well Tolerated Well #1 RIGHT GRT TOE/2ND TOE WEB SPACE -Time 09:05 08:30 -Correct Patient Yes Yes -Correct Side, Site, Position Yes Yes -Correct Procedure Yes Yes -Procedure Performed Yes Yes -Type of Procedure Debridement Debridement -Clinical Debridement Subcutaneous Subcutaneous -Post Debridement Size (cm) - Length 1 0.9 -Post Debridement Size (cm) - Width 0.5 0.6 -Post Debridement Size (cm) - Depth 0.1 0.2 -Total Square Cm 0.5 0.54 -Wound/Ulcer Outcome Not Healed Not Healed -Ulcer Cleansing Rinsed/ Rinsed/ Irrigated with Irrigated with Saline Saline -Foul Odor after Cleansing No No -Bioengineered Tissue No No -Bleeding Controlled with Pressure Pressure -Offloading No Yes -Treatment Response Procedure Procedure Tolerated Well Tolerated Well Pain Scale: 0-10 Numeric Is Patient Pain Free? Yes Yes Wound debrided: posterior leg Laterality: Right Wound Grade/Stage: grade 3 Type of Debridement: Excisional debridement Anesthesia Used: 5% Lidocaine Gel Depth: in the subcutaneous layer Percentage of wound debrided: 100 Instrument Used: #15 blade, Forceps Tissue Removed: fibrous, devitalized subcutaneous and tendon, biofilm, slough Severity: Fat Layer Exposed Amount of bleeding with debridement: Mild Bleeding Controlled with: Pressure Patient tolerated procedure well - Additional Wound Wound debrided: anterior leg Laterality: Right Wound Grade/Stage: grade 1 Type of Debridement: Excisional debridement Anesthesia Used: 5% Lidocaine Gel Depth: in the subcutaneous layer Percentage of wound debrided: 100 Instrument Used: #15 blade Tissue Removed: fibrous, devitalized subcutaneous, biofilm, slough Severity: Fat Layer Exposed Amount of bleeding with debridement: Mild Bleeding Controlled with: Pressure Patient tolerated procedure: Patient tolerated procedure well - Additional Wound Wound debrided: forefoot Laterality: Right Wound Grade/Stage: grade 3 Type of Debridement: Excisional debridement Anesthesia Used: 5% Lidocaine Gel Depth: in the subcutaneous layer Percentage of wound debrided: 100 Instrument Used: #15 blade Tissue Removed: fibrous, devitalized subcutaneous, biofilm, slough Severity: Fat Layer Exposed Amount of bleeding with debridement: Mild Bleeding Controlled with: Pressure Patient tolerated procedure: Patient tolerated procedure well - Additional Wound Wound debrided: medial hindfoot/ankle Laterality: Right Wound Grade/Stage: grade 3 Type of Debridement: Excisional debridement Anesthesia Used: 5% Lidocaine Gel Depth: in the subcutaneous layer Percentage of wound debrided: 100 Instrument Used: #15 blade Tissue Removed: fibrous, devitalized subcutaneous, biofilm, slough Severity: Fat Layer Exposed Amount of bleeding with debridement: Mild Bleeding Controlled with: Pressure Patient tolerated procedure: Patient tolerated procedure well - Additional Wound Wound debrided: posterior leg Laterality: Left Wound Grade/Stage: grade 2 Type of Debridement: Excisional debridement Anesthesia Used: 5% Lidocaine Gel Depth: in the subcutaneous layer Percentage of wound debrided: 100 Instrument Used: #15 blade Tissue Removed: fibrous, devitalized subcutaneous, biofilm, slough Severity: Fat Layer Exposed Amount of bleeding with debridement: Mild Bleeding Controlled with: Pressure Patient tolerated procedure: Patient tolerated procedure well Assessment/Plan Assessment: -Bacterial contamination with multi-organism growth. This is considered an infected ulcer. -open second and third ray resection 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 -previous bilateral leg fasciotomies and debridements and irrigation performed previously now with right and left leg ulcers with fat and tendon layers exposed. -diabetic neuropathy. -malnutrition suspected. 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 -delayed healing. -gait impairment and fall risk. -other comorbidities Plan: I reviewed and discussed his case today. Subcutaneous excisional debridement done as documented above in the nursing clinical panel. Excisional tendon debridement was also performed to the right posterior leg. The devitalized tendon was sent for aerobic, anaerobic, MRSA PCR testing to evaluate for any infection or bacterial contamination which may explain the delayed healing here. Multi-organism gram-positive and gram-negative growth are noted. There is no MRSA. His antibiotic was changed to doxycycline and levofloxacin. I do also recommend an infectious disease consultation and this will be set up for next week at the wound healing center. This was called in verbally to [facility] in [place] and he was advised on safe and proper use. Injectable local anesthetic was used to debride the posterior right lower leg ulcer site today, 5 cc of 2% lidocaine plain. These procedures were well-tolerated. Continue Aquacel Ag: To change daily due to the reported dryness. For this upcoming week, I recommend Betadine gauze dressing changes daily to the posterior right leg wicked and packed into the distal undermining aspect of this site. There is no gayatri purulence or necrosis seen. It is noted he also does not have any systemic signs of illness. His continued tendon exposure to the posterior bilateral legs is noted in the gave him a prescription for an offloading donut pillow previously. He relates he has been using this. I recommend surgical versa jet debridement with application of advanced wound healing product, amnio fill in the operating room. He is amendable to proceed the indications, benefits, risk, complications, and anticipated healing time management were discussed. Informed surgical consent will need to be obtained and clearance for this procedure under light IV MAC sedation and local. veterans' coordinator, nurse Shayne, will contact him to set this up. Elevate lower extremities when seated and in bed. Continue increased protein intake. He had a previous arterial Doppler scheduled with Dr. Morgan's staff on August 02, 2018 and overall perfusion was confirmed; additional intervention or workup was not recommended. It is also noted that he did have venous Doppler performed with reflux evaluation. He did not have evidence of deep venous thrombosis or venous insufficiency at that time; the vessels were compressible. To continue with nutritional supplementation optimize healing; I recommend Juan. I recommend he sustained from smoking and alcohol activities to optimize healing as well. His workup for vasculitis and underlying autoimmune disorder has been completed. A punch biopsy was sent during his last surgical intervention on June 10 and this demonstrated inflammatory changes without malignancy. He had initial screening labs and so far he has a negative RA titer, HL of the 27, KEVIN, anti-CCP, and rheumatoid factor. Several his antibody screenings were not reportable. Hyperbaric oxygen therapy was recommended and it is noted his ejection fraction was most recently 50%. He refuses at this time. Dr. Gilbert continues to manage his right knee ulcer including debridements and traditional wound care plan. He refuses surgical intervention at this time to bilateral lower extremities. I answered all of his questions. Additional amputation of the right foot is not planned due to his fairly nonambulatory status. I recommend further follow-up at the wound care center 1 week with me, or call sooner if he has any questions. Compliance at this advanced wound care center was reviewed.
== END 2019-06-21 23:59 ==
LOC: WC 08:00
PROVIDERS: Family Provider Family Medicine; PCP Family Medicine; Visit Provider Podiatrist
DX: E11.621 Type 2 diabetes mellitus with foot ulcer (principal); E11.622 Type 2 diabetes mellitus with other skin ulcer; E11.42 Type 2 diabetes mellitus with diabetic polyneuropathy; F17.210 Nicotine dependence, cigarettes, uncomplicated; L97.312 Non-pressure chronic ulcer of right ankle with fat layer exposed; L97.512 Non-pressure chronic ulcer of other part of right foot with fat layer exposed; L97.822 Non-pressure chronic ulcer of other part of left lower leg with fat layer exposed; L97.812 Non-pressure chronic ulcer of other part of right lower leg with fat layer exposed; L97.813 Non-pressure chronic ulcer of other part of right lower leg with necrosis of muscle
CPT/HCPCS: 11042; 11043; 11045; 87070; 87075; 87077; 87186; 87205; 87640; 99212; G0463

== ENCOUNTER → 2019-06-28 12:10 | Outpatient (CLI) | payer MEDICARE, SELFPAY ==
[2019-06-28 14:03] LABS: Absolute Neutrophil Count 7.2 X10^3/uL (2.0-7.7); Basophil# 0.04 X10^3/uL; Basophil% 0.4 % (0-1); Eosinophil# 0.06 X10^3/uL; Eosinophils% 0.7 % (0-5); Hematocrit 40.5 % (40-54); Hemoglobin 13.1 g/dL (13.0-16.5); Lymphocyte % 11.1 % (19-41); Mean Corp Hgb Conc 32.3 g/dL (32-36); Mean Corpuscular Hgb 30.3 pg (27.0-32.0); Mean Corpuscular Volume 93.8 fL (80-94); Mean Platelet Vol. 11.7 fl (6.2-12.0); Monocyte# 0.69 X10^3/uL; Monocyte% 7.7 % (0-10); NRBC Flagged by Analyzer 0 % (0-5); Neutrophil # 7.15 X10^3/uL (2.7-7.7); Neutrophil % 79.4 % (47-70); Platelet Count 175 K/mm3 (150-450); RBC Distribution Width CV 19.6 % (11.6-14.6); RBC Distribution Width SD 63.9 fl (35.1-43.9); Red Blood Count 4.32 M/mm3 (4.6-6.2)
[2019-06-28 14:17] LABS: ALB/GLOB Ratio 0.8 RATIO (0.9-2.4); AST(SGOT) 21 U/L (15-37); Alanine Aminotransfer ALT/SGPT 20 U/L (16-61); Albumin, Serum 3.1 g/dL (3.2-5.0); Alkaline Phosphatase 125 U/L (45-117); Anion Gap 8 (5-15); BUN 44 mg/dL (7-18); BUN/Creat Ratio 25.4 RATIO (10-20); Calcium,Total 8.8 mg/dL (8.5-10.1); Chloride 99 mmol/L (98-107); Creatinine, Serum 1.73 mg/dL (0.70-1.30); EST Glomerular Filtration Rate 42 mL/min (>60); Est Glom Filt Rate - Afr Amer 51 mL/min (>60); Glucose 208 mg/dL (74-106); Potassium 4.5 mmol/L (3.5-5.1); Protein, Total 7.1 g/dL (6.4-8.2); Sodium Level 136 mmol/L (136-145)
== END ==
PROVIDERS: Family Provider Family Medicine; PCP Family Medicine; Referring Provider Family Medicine; Visit Provider Family Medicine
DX: Z01.818 Encounter for other preprocedural examination (principal); Z79.01 Long term (current) use of anticoagulants; L98.499 Non-pressure chronic ulcer of skin of other sites with unspecified severity
CPT/HCPCS: 36415; 80053; 85025; 85610

== ENCOUNTER 2019-06-30 08:13 | Day surgery (SDC) | payer MEDICARE, SELFPAY ==
[2019-06-30] VITALS (9 sets, daily range): BP systolic 91–135; BP diastolic 52–93; PULSE 72–82; RESP 18; TEMP 36–36.1; O2SAT 94–100; BMI 32.1
[2019-06-30 09:01] LABS: Bedside Glucose 169 mg/dL (70-110)
[2019-06-30 09:07] LABS: Prothrombin Time Fingerstick 43.8 SEC (11.9-14.4)
[2019-06-30 09:36] LABS: International Normalized Ratio 2.6; Prothrombin Time (Protime)PT. 27.7 SECONDS (11.7-14.9)
[2019-06-30] MEDS: Cefazolin 2 GM in 0.9% Normal Saline 100 ML IV (11:07)
[2019-06-30] MEDS: Bupivacaine Mpf 0.5% 30 ML VIAL (11:15)
--- NOTE | 2019-06-30 12:50 | PCM.DC.POD ---
Discharge Diet: Carb Control Diet Discharge Activity: May not drive while taking narcotic pain medications., May Not Shower Weight Bearing Status: Full weight bearing - wear boot right lower extremity Keep extremity elevated above heart level: Left Leg, Right Leg Call your doctor if your incision/area has: Continuous Slow Oozing, Sudden Increased Bleeding, Increased Pain/ Swelling, Increased Redness, Foul Smelling Discharge, Swelling at the incision site Call your doctor if you observe: Fever of 101 or Higher, Calf discomfort, Uncontrolled pain Cleanse incision/area with: Keep Dressing Clean & Dry Allergies/Adverse Reactions: Allergies No Known Allergies Allergy (Verified 06/30/19 08:35) Medications to take at Discharge Aspirin [Adult Aspirin] 81 mg PO DAILY 06/07/18 Cholecalciferol (VIT D3) [Vitamin D3] 1,000 unit PO DAILY 06/07/18 Acetaminophen [Tylenol Tablet] 650 mg PO Q6H PRN PRN tablet 06/14/18 Ascorbic Acid [Vitamin C] 500 mg PO BIDCM tablet 06/14/18 Tamsulosin HCl [Flomax] 0.4 mg PO DAILY@1730 capsule 06/14/18 Zinc Sulfate (50mg elemental) [Zinc Sulfate] 220 mg PO DAILY capsule 06/14/18 Famotidine 20 mg PO DAILY 08/05/18 Insulin Lispro [Humalog] See Protocol SQ 4X/DAY 08/05/18 Multivitamins,Ther W-Minerals [Multivitamin With Minerals] 1 tablet PO DAILY 08/05/18 Paroxetine HCl [Paxil] 40 mg PO DAILY 08/05/18 Warfarin [Coumadin] 5 mg PO TUFR 08/05/18 glipiZIDE [Glucotrol] 10 mg PO DAILY@0730 08/05/18 Atenolol [Tenormin (beta dilia)] 50 mg PO DAILY tablet 08/10/18 Bumetanide [Bumex] 2 mg PO DAILY tablet 08/10/18 Ferrous Sulfate 325 mg PO BIDCM tablet 08/10/18 Doxycycline 100 mg PO BID 06/28/19 Levofloxacin 500 mg PO DAILY 06/28/19 Spironolactone 25 mg PO DAILY 06/29/19 Warfarin [Coumadin ([facility])] 7.5 mg PO SUMOWETHSA 06/29/19 Orders to be completed after discharge: Prothrombin Time w/INR Time Frame: 06/30/19, Facility: [facility], Location: Laboratory Primary Care Physician: Hong Sparks MD [Primary Care Provider] - Test Results: Test results from this visit will be discussed in further detail at your follow-up appointment, if applicable. Please Follow Up With: Izzy Gruber DPM When: next Wednesday at wound center. Call [phone] sooner if questions. Proposed Discharge Date: 06/30/19
--- NOTE | 2019-06-30 12:54 | OP.PCM_ITS ---
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 Right leg ulcer with fat layer exposed. Right foot ulcer with fat layer exposed. Left leg ulcer with necrosis of the Achilles tendon/muscle and also fat exposed Post-Operative Diagnosis: Right leg ulcer with necrosis of Achilles tendon/muscle with recently treated infection. Right leg ulcer with fat layer exposed. Right foot ulcer with fat layer exposed. Left leg ulcer with necrosis of the Achilles tendon/muscle and also fat exposed Surgery/Procedure Performed:: Excisional subcutaneous debridement right leg ulcer. Excisional subcutaneous debridement right foot ulcer. Excisional tendon debridement right leg ulcer. Excisional tendon debridement right leg ulcer. Application of advanced wound healing products including amnio fill and epi-cord to bilateral lower extremities (all ulcer sites) Description of Surgical Findings:: Hemostasis: No tourniquet utilized, controlled Materials: 1000 mg amnio fill advanced wound healing product, two 3 x 5 cm epi- cord advanced wound healing products, Adaptic, 4-0 nylon Complications: None Specimens: None Patient tolerated procedure anesthesia well was transported to the PACU with vital signs stable and vascular status intact to bilateral lower extremities. He will be discharged home upon continued stability. His postoperative orders are entered electronically. sales operations coordinator: none - Surgeon: Izzy Gruber DPM. Principal Electrical Engineer: Natalie Bailey PGY2 Type of Anesthesia:: Local MAC - Preoperative: 1:1 mixture of 1% lidocaine plain and 0.5% Marcaine plain administered local infiltrated manner to ulcer sites bilateral lower extremities, 20 cc Specimen's removed: none Estimated Blood Loss (mL): < 200 ml Fluids Replaced: none Description of Procedure: Indications: This 64-year-old male with significant past medical history of cardiomyopathy, diabetes with neuropathy, depression, cardiac valve disease, atrial fibrillation on chronic anticoagulation, vasculitis, tobacco use, and other conditions continues to suffer of delayed healing bilateral lower extremities. He had infected lower extremities in which he underwent emergency fasciotomies and infectious debridement over one year ago. He has been treated at the wound healing center with a comprehensive wound healing program. His wound healing plan including serial debridements, offloading, nutritional supplementation, and wound dressings. He has refused previous advanced wound healing products and hyperbaric therapy. He has been more a palliative care plan. Recently within the past month he is demonstrated devitalized right posterior Achilles tendon tissue with concurrent infection. He was treated successfully with oral antibiotics including Levaquin and doxycycline. He is also seen by infectious disease recently. This has since stabilized and he is now amenable to undergo debridement and application of advanced wound healing product. The preoperative indication, planned procedure, possible benefits, risks, complications, and anticipated healing time as were discussed in detail the patient. He understands and elects to proceed with surgery at this time. No guarantees are made. He understands the complications and risks may include but are not limited to the following: Pain, swelling, scarring, blood clot, allergic reaction, continued delayed or nonhealing, need for further surgery, abnormal muscular function of this limb due to compromised tendon, additional infections, loss of limb, function, life, chronic pain. Preoperative clearance and diagnostic data was reviewed. Is noted he does have an INR 4.0. I answered his question. The surgical limb and consent were signed. Procedure detail: The patient was transported to the operating room via cart and placed on the operating table in supine position. Final verification the patient, surgery, and limb designation was performed via the timeout procedure. No tourniquet was utlizied and MAC anesthesia was initiated by the anesthesia team. Local anesthetic was administered by the podiatry team as noted. Bilateral lower extremities were prepped and draped in the usual aseptic manner and attention was first directed to the lower extremity. Attention was first directed to the posterior right leg in which there was devitalized achilles tendon. The predebridement measurement was: 11.3 x 3.0 x 0.5 cm. The post debridement measurement was 12.6 x 3.5 x 1.3 cm. This was an excisional tendon debridement with forceps, 15 blade, and versajet set on setting 8. Less than 20 sq cm of this was tendon debridment. The remainder of this area involved subcutaneous excisional debridement. The debrided tendon was devitalized, liquified without gayatri purulence, and non viable with additional fibrous tissue and biofilm. After the debridement, no purulence or devitalized tissue remained. The deeper posterior compartment was non involved and there was no bone exposed. No erythema, streaking or other abscess was noted. There is now a gap where the devitalized achilles tendon has been debrided. Attention was also directed to the anterior right leg (predebridement: 1.8 x 1. 8 x 0.1 cm, post debridement: 2 x 2 x 0.1 cm), medial foot (predebridement: 3.5 x 2.0 x 0.2 cm, post debridement: 3.8 x 2.2 x 0.2 cm), medial ankle (predebridement: 3.6 x 0.6 x 0.2 cm, post debridement: 3.8 x 0.8 x 0.2 cm), and the right forefoot (predebridement: 0.7 x 1.4 x 0.1 cm, post debridement: 0.8 x 1.5 x 0.1 cm) with the aformentioned measurements. These sites had subcutaneous excisional debridement performed with a 15 blade. Attention was next directed to the posterior left leg in which tendon and subcutaneous debridement was performed with versajet on setting 8, 15 blade, and forceps. The predebridement measurement was 13.1 x 1.7 x 0.2 cm and post debridement measurement was 13.6 x 1.9 x 0.2 cm. Less than 20 sq cm of this was tendon and the remainder was subcutaneous. Excisional debridement was performed to removed devitalized tendon and subcutaneous tissue, biofilm, slough, and fibrous tissue. The debrided tendon was devitalized and unhealthy. After the debridement, no purulence or devitalized tissue remained. The deeper posterior compartment was non involved and there was no bone exposed. No erythema, streaking or other abscess was noted. The majority of the tendon remains intact. Hemostasis was controlled after debridement to all these site with direct pressure. Anesthesia was achieved with the previously provided local anesthesia. Next, saline copious irrigation was performed. Hemostasis was controlled and there was no pulsatile bleeding noted. Capillary fill time remained brisk to digits during and after the procedure. The advanced wound healing product Amniofill (derived from amniotic cord and umbilical cord cells) was applied. A total of 1000 mg was utilized and was applied to all of the aformentioned debrided ulcer sites. Additionally, umbilical cord derived advanced wound healing product was used to incorporate over areas of tendon debridement to optimize healing. The sites this was applied was to the posterior right and left leg ulcers. This was secured with 3-0 nylon. Additional adaptic was applied as a wound veil to all ulcer sites and was further secured with nylon suture and steri strips. A secondary dressing of gauze, abdominal pads, kerlix, and gregory wraps were applied to bilateral lower extremities. After procedure: The patient tolerated the procedure and anesthesia well. He was transported to PACU with vital signs stable and vascular status intact to bilateral lower extremities. He was advised to elevate bilateral lower extremities. He will be discharged home upon continued PACU stability. He is to remain nonweightbearing to left lower extremy and WBAT to RLE with CAM walker. He has completed recent oral antibiotic course and is under the care of infectious disease. I do not recommend additional antibiotics at this time. This is a planned stage procedure and he will go for additional debridement and irrigation versus other amputations depending on his continued stability versus continued comprehensive wound healing program in the outpatient setting. He has continued on oral anticoagulation medication throughout the operative period and will continue to do so post operative. To continue with diligent ulcer offloading and nutritional supplementation to optimize healing. All of his postoperative orders were entered electronically. Izzy Gruber DPM, [facility] Grafts/Implants Used: amniofill (1000 mg) and epicord (two 3x5 cm) - Complications none - Admit VTE Documentation VTE Present on Admission: No VTE Pharm Prophylaxis ordered?: No Reason prophylaxis not ordered:: Treatment Not Indicated - He is already on coumadin and this as continued during the perioperative time frame
[2019-06-30] MEDS: Ipratropium/Albuterol Sulfate 3 ML AMPUL.NEB INHALATION (13:16)
== END 2019-06-30 14:28 | disposition home or self-care (01) ==
LOC: SDC 08:13 → AC 08:16
PROVIDERS: Family Provider Family Medicine; PCP Family Medicine; Referring Provider Podiatrist; Visit Provider Podiatrist
PROC: (CPT 11042; principal; 2019-06-30 09:30)
DX: E11.621 Type 2 diabetes mellitus with foot ulcer (principal); L97.913 Non-pressure chronic ulcer of unspecified part of right lower leg with necrosis of muscle; L97.912 Non-pressure chronic ulcer of unspecified part of right lower leg with fat layer exposed; L97.512 Non-pressure chronic ulcer of other part of right foot with fat layer exposed; L97.923 Non-pressure chronic ulcer of unspecified part of left lower leg with necrosis of muscle; L97.922 Non-pressure chronic ulcer of unspecified part of left lower leg with fat layer exposed; E11.42 Type 2 diabetes mellitus with diabetic polyneuropathy; E11.8 Type 2 diabetes mellitus with unspecified complications; I69.354 Hemiplegia and hemiparesis following cerebral infarction affecting left non-dominant side; I48.91 Unspecified atrial fibrillation; I27.20 Pulmonary hypertension, unspecified; I10 Essential (primary) hypertension; F32.9 Major depressive disorder, single episode, unspecified; F41.9 Anxiety disorder, unspecified; F17.200 Nicotine dependence, unspecified, uncomplicated; Z79.01 Long term (current) use of anticoagulants; Z79.82 Long term (current) use of aspirin; Z79.4 Long term (current) use of insulin; Z79.899 Other long term (current) drug therapy; Z86.718 Personal history of other venous thrombosis and embolism
CPT/HCPCS: 01470; 11042; 11043; C5271; 36416; 82962; 85610; 94640; J7120; J2405

== ENCOUNTER 2019-07-19 08:00 | Outpatient (RCR) | payer MEDICARE, SELFPAY ==
[2019-06-22 00:37] VITALS: BP 132/83; PULSE 108; RESP 18; TEMP 36.2
--- NOTE | 2019-06-28 13:59 | PCM.PN.ID ---
Subjective: Feeling ok, wound improved on abx, surgery planned, no fever, no n/v/d. - Physical Exam General: Alert, Cooperative, No apparent distress Lungs: Clear to auscultation, Normal air movement Cardiovascular: Regular rate, Regular Rhythm Abdomen: Soft, Non Tender, Non-Distended Skin: Ulcer/ Wound - R posterior ankle ulcer Vital Signs Temp Pulse Resp BP 97.1 F L 108 H 18 132/83 H 06/22/19 00:37 06/22/19 00:37 06/22/19 00:37 06/22/19 00:37 Weight: 113.819 kg Finger Stick Blood Glucose 155 Medical Necessity - Tobacco Use Smoking Status: Current every day smoker Route of nutrition/ use of supplements: [] Nutritional Intake: [] IV Site: [] Aponte Catheter: [] - Assessment/Plan Antibiotics: [] Assessment/Plan: [] R ankle infected ulcer - recent cx with LsA, morganella, kocuria, p.acnes, and anaerobes. Much improved with course of doxy and levaquin. Surgery planned for I&D with Dr. Gruber. Complete course as planned. Will follow as needed
--- NOTE | 2019-06-28 15:02 | PN.PCM_ITS ---
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 Status: Chronic Current Visit: Yes Code(s): L97.913 - Non-pressure chronic ulcer of unspecified part of right lower leg with necrosis of muscle (5) Ulcer of right lower extremity with fat layer exposed Status: Chronic Current Visit: Yes Code(s): L97.912 - Non-pressure chronic ulcer of unspecified part of right lower leg with fat layer exposed (6) Type 2 diabetes mellitus with diabetic polyneuropathy Status: Chronic Current Visit: Yes Code(s): E11.42 - Type 2 diabetes mellitus with diabetic polyneuropathy (7) Colonization status Status: Chronic Current Visit: Yes Code(s): Z22.9 - Carrier of infectious disease, unspecified (8) Delayed wound healing Status: Chronic Current Visit: Yes Code(s): T14.8XXD - Other injury of unspecified body region, subsequent encounter (9) Localized edema Status: Chronic Current Visit: Yes Code(s): R60.0 - Localized edema (10) Malnutrition Status: Chronic Current Visit: Yes Code(s): E46 - Unspecified protein- calorie malnutrition Type of Wound Date of Service: 06/28/19 Chief Complaint: right and left Leg ulcers and right foot ulcers History of Wound: Mr. Arguello is a 64-year-old male with multiple comorbidities follows up for delayed healing ulcers to the right foot as well as bilateral legs. These are chronic and he has had previous remote surgical intervention. He denies chills, fever, nausea, or vomiting. He presents today with his . He refuses hyperbaric oxygen therapy treatment. His noticed that his tendon is continuing to retain moisture even though he has been performing Betadine gauze application; this is in regards to the posterior right heel. He has had an ongoing odor and devitalized tendon in the past 3 to 4 weeks. He c ompleted a course of doxycycline and Levaquin and does have some improvement to the best degree of this past week. He is also seeing infectious disease today. He also went for his medical clearance for tentative planned procedure on Wednesday for debridement of devitalized tendon ulcers with application of advanced wound healing product. It is noted that he does have medical comorbidities and he is on Coumadin. Progress of Wound: Stable. Improvement from an infection standpoint with the right posterior leg - Physical Exam Vital Signs Temp Pulse Resp BP 97.1 F L 108 H 18 132/83 H 06/22/19 00:37 06/22/19 00:37 06/22/19 00:37 06/22/19 00:37 General: Alert, Oriented x3, Cooperative, No apparent distress Extremities: No cyanosis, Capillary Refill Less than 3 Seconds, No Calf Tenderness - Negative Errol and [place] sign, Diminished Peripheral Pulses, Edema Skin: Ulcer/ Wound - The odor has significantly reduced to the right leg. There is no gayatri purulence erythema or streaking expression. There is continued devitalized unhealthy necrotic Achilles tendon that does undermine to the posterior lower right leg. The peripheral skin is hairless and atrophic. There is also exposed tendon to the posterior left leg that is partially devitalized as well. The other ulcers are granular. Wound Measurements and Assessment WC - Nurse 1 - General Ulcer Measurement Start: 06/28/19 13:21 Freq: Status: Active Protocol: Activity Type Activity Date Activity User E-Sign Co-Sign Detail Recorded Client Recorded Date Recorded By Document 06/28/19 13:22 [id number] 06/28/19 13:30 RB 06/28/19 13:22 Wound Center Nurse 1 [Ulcer Assessment] #11 RIGHT MEDIAL FOOT -Combined with other wound No -Current Size (cm) - Length 11.4 -Current Size (cm) - Width 1.5 -Current Size (cm) - Depth 0.3 -Total Square Cm 17.10 -Tunneling No -Undermining/Tunneling No -Circular Undermining No -Exudate Amt Medium -Exudate Type Serosanguineous -Wound Margin Flat & Intact -Granulation Amt Medium (34-66%) -Granulation Quality [place] -Slough/Fibrin Yes -Necrosis Amt Small (1-33%) -Necrotic Tissue Type Adherent Slough -Structure Exposed N/A -Texture (Lisa-wound Skin Appearance) Assessed -Moisture (Lisa-wound Skin Appearance Dry/Scaly ) -Color (Lisa-wound Skin Appearance) Assessed -Temperature (Lisa-wound Skin No Abnormality Appearance) (Pt Warm) -Tenderness on Palpation (Lisa-wound No Skin Appearance) -Ulcer Cleansing Wound Cleanser -Foul Odor after Cleansing No -Anesthetic Used 4% Lidocaine Solution #6 POSTERIOR LLE -Combined with other wound No -Current Size (cm) - Length 14 -Current Size (cm) - Width 1.5 -Current Size (cm) - Depth 0.3 -Total Square Cm 21.0 -Tunneling No -Undermining/Tunneling No -Circular Undermining No -Exudate Amt Small -Exudate Type Serosanguineous -Wound Margin Flat & Intact -Granulation Amt Small (1-33%) -Granulation Quality [place] -Slough/Fibrin Yes -Necrosis Amt Large (67-100%) -Necrotic Tissue Type Adherent Slough -Structure Exposed N/A -Texture (Lisa-wound Skin Appearance) Assessed -Moisture (Lisa-wound Skin Appearance Dry/Scaly ) -Color (Lisa-wound Skin Appearance) Assessed -Temperature (Lisa-wound Skin No Abnormality Appearance) (Pt Warm) -Tenderness on Palpation (Lisa-wound No Skin Appearance) -Ulcer Cleansing Wound Cleanser -Foul Odor after Cleansing No -Anesthetic Used 4% Lidocaine Solution #5 LATERAL RLE -Combined with other wound No -Current Size (cm) - Length 0.1 -Current Size (cm) - Width 0.3 -Current Size (cm) - Depth 0.1 -Total Square Cm 0.03 -Tunneling No -Undermining/Tunneling No -Circular Undermining No -Exudate Amt Small -Exudate Type Serosanguineous -Wound Margin Flat & Intact -Granulation Amt Large (67-100%) -Granulation Quality [place] -Slough/Fibrin Yes -Necrosis Amt Small (1-33%) -Necrotic Tissue Type Adherent Slough -Structure Exposed N/A -Texture (Lisa-wound Skin Appearance) Assessed -Moisture (Lisa-wound Skin Appearance Assessed,Dry/ ) Scaly -Color (Lisa-wound Skin Appearance) Assessed -Temperature (Lisa-wound Skin No Abnormality Appearance) (Pt Warm) -Tenderness on Palpation (Lisa-wound No Skin Appearance) -Ulcer Cleansing Wound Cleanser -Foul Odor after Cleansing No -Anesthetic Used 4% Lidocaine Solution #4 POSTERIOR RLE -Combined with other wound No -Current Size (cm) - Length 11.1 -Current Size (cm) - Width 3 -Current Size (cm) - Depth 1.3 -Total Square Cm 33.3 -Tunneling No -Undermining/Tunneling No -Circular Undermining No -Exudate Amt Small -Exudate Type Serosanguineous -Wound Margin Flat & Intact -Granulation Amt Large (67-100%) -Granulation Quality [place] -Slough/Fibrin Yes -Necrosis Amt Small (1-33%) -Necrotic Tissue Type Adherent Slough -Structure Exposed N/A -Texture (Lisa-wound Skin Appearance) Assessed -Moisture (Lisa-wound Skin Appearance Assessed,Dry/ ) Scaly -Color (Lisa-wound Skin Appearance) Assessed -Temperature (Lisa-wound Skin No Abnormality Appearance) (Pt Warm) -Tenderness on Palpation (Lisa-wound No Skin Appearance) -Ulcer Cleansing Wound Cleanser -Foul Odor after Cleansing No -Anesthetic Used 4% Lidocaine Solution #2 R [place]LL[place] CLUSTER -Combined with other wound No -Current Size (cm) - Length 2 -Current Size (cm) - Width 1.7 -Current Size (cm) - Depth 0.1 -Total Square Cm 3.4 -Tunneling No -Undermining/Tunneling No -Circular Undermining No -Exudate Amt Small -Exudate Type Serosanguineous -Wound Margin Flat & Intact -Granulation Amt Medium (34-66%) -Granulation Quality [place] -Slough/Fibrin Yes -Necrosis Amt Medium (34-66%) -Necrotic Tissue Type Adherent Slough -Structure Exposed N/A -Texture (Lisa-wound Skin Appearance) Assessed -Moisture (Lisa-wound Skin Appearance Assessed,Dry/ ) Scaly -Color (Lisa-wound Skin Appearance) Assessed -Temperature (Lisa-wound Skin No Abnormality Appearance) (Pt Warm) -Tenderness on Palpation (Lisa-wound No Skin Appearance) -Ulcer Cleansing Wound Cleanser -Foul Odor after Cleansing No -Anesthetic Used 4% Lidocaine Solution #1 RIGHT GRT TOE/2ND TOE WEB SPACE -Combined with other wound No -Current Size (cm) - Length 0.9 -Current Size (cm) - Width 0.4 -Current Size (cm) - Depth 0.2 -Total Square Cm 0.36 -Tunneling No -Undermining/Tunneling No -Circular Undermining No -Exudate Amt Medium -Exudate Type Serosanguineous -Wound Margin Flat & Intact -Granulation Amt Medium (34-66%) -Granulation Quality [place] -Slough/Fibrin Yes -Necrosis Amt Medium (34-66%) -Necrotic Tissue Type Adherent Slough -Structure Exposed N/A -Texture (Lisa-wound Skin Appearance) Assessed -Moisture (Lisa-wound Skin Appearance Dry/Scaly ) -Color (Lisa-wound Skin Appearance) Assessed -Temperature (Lisa-wound Skin No Abnormality Appearance) (Pt Warm) -Tenderness on Palpation (Ilsa-wound No Skin Appearance) -Ulcer Cleansing Wound Cleanser -Foul Odor after Cleansing No -Anesthetic Used 4% Lidocaine Solution [Edema Assessment] -Lower Limb Edema Present Yes -Right Calf (cm) 38 -Right Ankle (cm) 22.1 -Left Calf (cm) 35 -Left Ankle (cm) 20.5 WC - Nurse 2 - General Ulcer CM Notes Start: 06/28/19 13:21 Freq: Status: Active Protocol: Activity Type Activity Date Activity User E-Sign Co-Sign Detail Recorded Client Recorded Date Recorded By Document 06/28/19 13:45 AN [id number] 06/28/19 13:59 AN 06/28/19 13:45 Wound Center Nurse 2 [Procedure/Treatment] #11 RIGHT MEDIAL FOOT -Time 13:53 -Correct Patient Yes -Correct Side, Site, Position Yes -Correct Procedure Yes -Procedure Performed No -Post Debridement Size (cm) - Length 11.5 -Post Debridement Size (cm) - Width 1.6 -Post Debridement Size (cm) - Depth 0.3 -Total Square Cm 18.40 #6 POSTERIOR LLE -Time 13:56 -Correct Patient Yes -Correct Side, Site, Position Yes -Correct Procedure Yes -Procedure Performed Yes -Type of Procedure Debridement -Clinical Debridement Subcutaneous -Post Debridement Size (cm) - Length 14.1 -Post Debridement Size (cm) - Width 1.6 -Post Debridement Size (cm) - Depth 0.3 -Total Square Cm 22.56 -Wound/Ulcer Outcome Not Healed -Ulcer Cleansing Rinsed/ Irrigated with Saline -Foul Odor after Cleansing No -Bioengineered Tissue No -Bleeding Controlled with Pressure -Offloading Yes -Treatment Response Procedure Tolerated Well #5 LATERAL RLE -Time 13:56 -Correct Patient Yes -Correct Side, Site, Position Yes -Correct Procedure Yes -Procedure Performed No -Post Debridement Size (cm) - Length 0.2 -Post Debridement Size (cm) - Width 0.4 -Post Debridement Size (cm) - Depth 0.1 -Total Square Cm 0.08 #4 POSTERIOR RLE -Time 13:57 -Correct Patient Yes -Correct Side, Site, Position Yes -Correct Procedure Yes -Procedure Performed Yes -Type of Procedure Debridement -Clinical Debridement Selective -Post Debridement Size (cm) - Length 11.2 -Post Debridement Size (cm) - Width 3.1 -Post Debridement Size (cm) - Depth 1.3 -Total Square Cm 34.72 -Wound/Ulcer Outcome Not Healed -Ulcer Cleansing Rinsed/ Irrigated with Saline -Foul Odor after Cleansing No -Bioengineered Tissue No -Bleeding Controlled with Pressure -Offloading Yes -Treatment Response Procedure Tolerated Well #2 R POLLOCK CLUSTER -Time 13:57 -Correct Patient Yes -Correct Side, Site, Position Yes -Correct Procedure Yes -Procedure Performed No -Post Debridement Size (cm) - Length 2.1 -Post Debridement Size (cm) - Width 1.8 -Post Debridement Size (cm) - Depth 0.1 -Total Square Cm 3.78 #1 RIGHT GRT TOE/2ND TOE WEB SPACE -Time 13:58 -Correct Patient Yes -Correct Side, Site, Position Yes -Correct Procedure Yes -Procedure Performed No -Post Debridement Size (cm) - Length 1.0 -Post Debridement Size (cm) - Width 0.5 -Post Debridement Size (cm) - Depth 0.2 -Total Square Cm 0.50 [See Physician Procedure note for Specifics] Pain Scale: 0-10 Numeric [Pain] -Is Patient Pain Free? Yes Musculoskeletal: No Tenderness to Palpation of Joints or Extremities, Muscle Wasting, - - Compartment soft to palpate bilateral lower extremities Neurological: - - Lack of normal-appearing sensation light touch consistent with neuropathy bilateral lower extremities Psych/Mental Status: Normal Affect, Appropriate Debridement Note Post-Debridement Measurements/Treatment WC - Nurse 2 - General Ulcer CM Notes Start: 06/28/19 13:21 Freq: Status: Active Protocol: Activity Type Activity Date Activity User E-Sign Co-Sign Detail Recorded Client Recorded Date Recorded By Document 06/28/19 13:45 AN [id number] 06/28/19 13:59 AN 06/28/19 13:45 Wound Center Nurse 2 #11 RIGHT MEDIAL FOOT -Time 13:53 -Correct Patient Yes -Correct Side, Site, Position Yes -Correct Procedure Yes -Procedure Performed No -Post Debridement Size (cm) - Length 11.5 -Post Debridement Size (cm) - Width 1.6 -Post Debridement Size (cm) - Depth 0.3 -Total Square Cm 18.40 #6 POSTERIOR LLE -Time 13:56 -Correct Patient Yes -Correct Side, Site, Position Yes -Correct Procedure Yes -Procedure Performed Yes -Type of Procedure Debridement -Clinical Debridement Subcutaneous -Post Debridement Size (cm) - Length 14.1 -Post Debridement Size (cm) - Width 1.6 -Post Debridement Size (cm) - Depth 0.3 -Total Square Cm 22.56 -Wound/Ulcer Outcome Not Healed -Ulcer Cleansing Rinsed/ Irrigated with Saline -Foul Odor after Cleansing No -Bioengineered Tissue No -Bleeding Controlled with Pressure -Offloading Yes -Treatment Response Procedure Tolerated Well #5 LATERAL RLE -Time 13:56 -Correct Patient Yes -Correct Side, Site, Position Yes -Correct Procedure Yes -Procedure Performed No -Post Debridement Size (cm) - Length 0.2 -Post Debridement Size (cm) - Width 0.4 -Post Debridement Size (cm) - Depth 0.1 -Total Square Cm 0.08 #4 POSTERIOR RLE -Time 13:57 -Correct Patient Yes -Correct Side, Site, Position Yes -Correct Procedure Yes -Procedure Performed Yes -Type of Procedure Debridement -Clinical Debridement Selective -Post Debridement Size (cm) - Length 11.2 -Post Debridement Size (cm) - Width 3.1 -Post Debridement Size (cm) - Depth 1.3 -Total Square Cm 34.72 -Wound/Ulcer Outcome Not Healed -Ulcer Cleansing Rinsed/ Irrigated with Saline -Foul Odor after Cleansing No -Bioengineered Tissue No -Bleeding Controlled with Pressure -Offloading Yes -Treatment Response Procedure Tolerated Well #2 R POLLOCK CLUSTER -Time 13:57 -Correct Patient Yes -Correct Side, Site, Position Yes -Correct Procedure Yes -Procedure Performed No -Post Debridement Size (cm) - Length 2.1 -Post Debridement Size (cm) - Width 1.8 -Post Debridement Size (cm) - Depth 0.1 -Total Square Cm 3.78 #1 RIGHT GRT TOE/2ND TOE WEB SPACE -Time 13:58 -Correct Patient Yes -Correct Side, Site, Position Yes -Correct Procedure Yes -Procedure Performed No -Post Debridement Size (cm) - Length 1.0 -Post Debridement Size (cm) - Width 0.5 -Post Debridement Size (cm) - Depth 0.2 -Total Square Cm 0.50 Pain Scale: 0-10 Numeric Is Patient Pain Free? Yes Wound debrided: posterior right Laterality: Right Wound Grade/Stage: grade 3 Type of Debridement: Excisional debridement Anesthesia Used: 5% Lidocaine Gel Depth: in the subcutaneous layer, to muscle Percentage of wound debrided: 80 - subcutaneous, 20 - achilles tendon Instrument Used: #15 blade, Forceps Tissue Removed: fibrous, devitalized subcutaneous and tendon, biofilm, slough Severity: Fat Layer Exposed Amount of bleeding with debridement: Mild Bleeding Controlled with: Pressure Patient tolerated procedure well - Additional Wound Wound debrided: posterior leg Laterality: Left Wound Grade/Stage: grade 2 Type of Debridement: Excisional debridement Anesthesia Used: 5% Lidocaine Gel Depth: in the subcutaneous layer Percentage of wound debrided: 100 Instrument Used: #15 blade Tissue Removed: fibrous, devitalized subcutaneous, biofilm, slough Severity: Fat Layer Exposed Amount of bleeding with debridement: Mild Bleeding Controlled with: Pressure Patient tolerated procedure: Patient tolerated procedure well Assessment/Plan Active Problems (Last Updated 09/28/18 @ 12:41 by Geraldine Steele) Ulcer of right foot with fat layer exposed (Chronic) 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 This is considered an infected ulcer to the right lower posterior leg. -open second and third ray resection 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 -previous bilateral leg fasciotomies and debridements and irrigation performed previously now with right and left leg ulcers with fat and tendon layers exposed. -diabetic neuropathy. -malnutrition suspected. 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 -delayed healing. -gait impairment and fall risk. -other comorbidities Plan: I reviewed and discussed his case today. Subcutaneous and tendon excisional debridement done as documented above in the nursing clinical panel to posterior bilateral legs. Multi-organism gram-positive and gram-negative growth are noted. There is no MRSA. His antibiotic was changed to doxycycline and levofloxacin. He has demonstrated a favorable response to this. He is completed this course. He was seen by infectious disease and will follow-up as needed. Additional antibiotics were not recommended today. To continue [employer]: To change daily due to the reported dryness. For this upcoming week, I recommend Betadine gauze dressing changes daily to the posterior right leg wicked and packed into the distal undermining aspect of this site. There is no gayatri purulence or necrosis seen. It is okay to wash the area with Hibiclens 1 time. It is noted he also does not have any systemic signs of illness. His continued tendon exposure to the posterior bilateral legs is noted in the gave him a prescription for an offloading donut pillow previously. He relates he has been using this. I recommend surgical versa jet debridement with application of advanced wound healing product, amnio fill in the operating room. Additionally the left posterior leg can be debrided with versa jet and application of advanced wound healing products including amnio fill epi for were also recommended. He is amendable to proceed the indications, benefits, risk, complications, and anticipated healing time management were discussed. Informed surgical consent was obtained and he has tentatively been clearanced for this procedure under light IV MAC sedation and local. He saw Dr. Singh earlier today. His abnormal EKG is noted and consistent with his prior diagnosis of atrial fibrillation which she is on chronic Coumadin for. I will confirm that he still cleared for surgery. Consideration will be given for this procedure under just local anesthetic if it is too dangerous to do MAC sedation. He is tentatively scheduled for surgery on 06/30/2019 10:45 AM at [facility]. To elevate lower extremities when seated and in bed. Continue increased protein intake. He had a previous arterial Doppler scheduled with Dr. Morgan's staff on August 02, 2018 and overall perfusion was confirmed; additional intervention or workup was not recommended. It is also noted that he did have venous Doppler performed with reflux evaluation. He did not have evidence of deep venous thrombosis or venous insufficiency at that time; the vessels were compressible. To continue with nutritional supplementation optimize healing; I recommend Juan. I recommend he sustained from smoking and alcohol activities to optimize healing as well. His workup for vasculitis and underlying autoimmune disorder has been completed. A punch biopsy was sent during his last surgical intervention on June 10 and this demonstrated inflammatory changes without malignancy. He had initial screening labs and so far he has a negative RA titer, HL of the 27, KEVIN, anti-CCP, and rheumatoid factor. Several his antibody screenings were not reportable. Hyperbaric oxygen therapy was recommended and it is noted his ejection fraction was most recently 50%. He refuses at this time. The upcoming surgery is scheduled as a same day procedure. He will tentatively follow-up with the wound healing center next Wednesday.
[2019-06-28 15:12] LABS: International Normalized Ratio 3.1; Prothrombin Time (Protime)PT. 32.1 SECONDS (11.7-14.9)
[2019-07-07 13:30] VITALS: BP 127/69; PULSE 92; RESP 18; TEMP 36.6
--- NOTE | 2019-07-07 13:33 | WC ---
wounds bilat LE not measured D/T adaptic sutured and steristrips over wounds.
--- NOTE | 2019-07-07 16:47 | PN.PCM_ITS ---
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 Status: Chronic Current Visit: Yes Code(s): L97.913 - Non-pressure chronic ulcer of unspecified part of right lower leg with necrosis of muscle (5) Ulcer of right lower extremity with fat layer exposed Status: Chronic Current Visit: Yes Code(s): L97.912 - Non-pressure chronic ulcer of unspecified part of right lower leg with fat layer exposed (6) Type 2 diabetes mellitus with diabetic polyneuropathy Status: Chronic Current Visit: Yes Code(s): E11.42 - Type 2 diabetes mellitus with diabetic polyneuropathy (7) Delayed wound healing Status: Chronic Current Visit: Yes Code(s): T14.8XXD - Other injury of unspecified body region, subsequent encounter (8) Localized edema Status: Chronic Current Visit: Yes Code(s): R60.0 - Localized edema (9) Malnutrition Status: Chronic Current Visit: Yes Code(s): E46 - Unspecified protein- calorie malnutrition Type of Wound Date of Service: 07/07/19 Chief Complaint: right and left Leg ulcers and right foot ulcers History of Wound: Mr. Arguello is a 64-year-old male with multiple comorbidities follows up for delayed healing ulcers to the right foot as well as bilateral legs. These are chronic and he has had previous remote surgical intervention. He also had operating room debridement performed on June 30, 2019 bilateral lower extremities to all bilateral ulcer sites with additional application of advanced wound healing products including amnio fill and epi-cord to bilateral posterior legs. He denies chills, fever, nausea, or vomiting. He presents today with his . He refuses hyperbaric oxygen therapy treatment. The outer Joao wraps have been adjusted for swelling management this past week and otherwise the dressing stayed clean and intact. He denies odor or redness. He relates complete resolution of pain this past week and denies need for pain medication use. He denies fever, chill, nausea, vomiting or other illness. Progress of Wound: Stable bilateral - Physical Exam Vital Signs Temp Pulse Resp BP 97.8 F 92 18 127/69 H 07/07/19 13:30 07/07/19 13:30 07/07/19 13:30 07/07/19 13:30 General: Alert, Oriented x3, Cooperative, No apparent distress Extremities: No cyanosis, Capillary Refill Less than 3 Seconds, No Calf Tenderness, Diminished Peripheral Pulses, Edema, Tenderness - No pain with ulcer manipulation; the advanced wound healing products are secured in place with Adaptic and appear to be incorporating bilateral Skin: Ulcer/ Wound - No purulence, erythema, streaking, odor, or infection. The peripheral skin is hairless and atrophic Wound Measurements and Assessment WC - Nurse 1 - General Ulcer Measurement Start: 06/28/19 13:21 Freq: Status: Active Protocol: Activity Type Activity Date Activity User E-Sign Co-Sign Detail Recorded Client Recorded Date Recorded By Document 07/07/19 13:30 [facility] [id number] 07/07/19 13:36 [facility] 07/07/19 13:30 Wound Center Nurse 1 [Ulcer Assessment] #11 RIGHT MEDIAL FOOT -Combined with other wound No -Tunneling No -Undermining/Tunneling No -Circular Undermining No -Exudate Amt Small -Exudate Type Serosanguineous -Wound Margin Distinct, Outline Attached -Texture (Lisa-wound Skin Appearance) Assessed, Scarring -Moisture (Lisa-wound Skin Appearance Dry/Scaly ) -Color (Lisa-wound Skin Appearance) Assessed -Temperature (Lisa-wound Skin No Abnormality Appearance) (Pt Warm) -Tenderness on Palpation (Lisa-wound No Skin Appearance) -Foul Odor after Cleansing No #6 POSTERIOR LLE -Tunneling No -Undermining/Tunneling No -Circular Undermining No -Exudate Amt Small -Exudate Type Serosanguineous -Texture (Lisa-wound Skin Appearance) Assessed -Moisture (Lisa-wound Skin Appearance Dry/Scaly ) -Color (Lisa-wound Skin Appearance) Assessed -Temperature (Lisa-wound Skin No Abnormality Appearance) (Pt Warm) -Tenderness on Palpation (Lisa-wound No Skin Appearance) #5 LATERAL RLE -Exudate Amt Small -Exudate Type Serosanguineous -Texture (Lisa-wound Skin Appearance) Assessed, Scarring -Moisture (Lisa-wound Skin Appearance Dry/Scaly ) -Color (Lisa-wound Skin Appearance) Assessed #4 POSTERIOR RLE -Exudate Amt Small -Exudate Type Serosanguineous -Texture (Lisa-wound Skin Appearance) Assessed, Scarring -Moisture (Lisa-wound Skin Appearance Dry/Scaly ) -Color (Lisa-wound Skin Appearance) Assessed -Temperature (Lisa-wound Skin No Abnormality Appearance) (Pt Warm) -Tenderness on Palpation (Lisa-wound No Skin Appearance) #2 R POLLOCK CLUSTER -Exudate Amt Small -Exudate Type Serosanguineous -Wound Margin Flat & Intact -Texture (Lisa-wound Skin Appearance) Assessed, Localized Edema -Moisture (Lisa-wound Skin Appearance Assessed,Dry/ ) Scaly -Color (Lisa-wound Skin Appearance) Assessed #1 RIGHT GRT TOE/2ND TOE WEB SPACE -Exudate Amt Small -Exudate Type Serosanguineous -Texture (Lisa-wound Skin Appearance) Scarring -Moisture (Lisa-wound Skin Appearance Assessed,Dry/ ) Scaly -Color (Lisa-wound Skin Appearance) Assessed [Edema Assessment] -Lower Limb Edema Present Yes -Right Calf (cm) 36 -Right Ankle (cm) 21.7 -Left Calf (cm) 34.8 -Left Ankle (cm) 21 07/07/19 13:33 Wound Center by Sharmila Lorenz wounds bilat LE not measured D/T adaptic sutured and steristrips over wounds. 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 Weakness to bilateral lower extremities is consistent with prior exams Neurological: - - Lack of normal epicritic sensation consistent with neuropathy bilateral lower extremities Psych/Mental Status: Normal Affect, Appropriate Debridement Note Post-Debridement Measurements/Treatment WC - Nurse 2 - General Ulcer CM Notes Start: 06/28/19 13:21 Freq: Status: Active Protocol: Activity Type Activity Date Activity User E-Sign Co-Sign Detail Recorded Client Recorded Date Recorded By Document 06/28/19 13:45 AN [id number] 06/28/19 13:59 AN 06/28/19 13:45 Wound Center Nurse 2 #11 RIGHT MEDIAL FOOT -Time 13:53 -Correct Patient Yes -Correct Side, Site, Position Yes -Correct Procedure Yes -Procedure Performed No -Post Debridement Size (cm) - Length 11.5 -Post Debridement Size (cm) - Width 1.6 -Post Debridement Size (cm) - Depth 0.3 -Total Square Cm 18.40 #6 POSTERIOR LLE -Time 13:56 -Correct Patient Yes -Correct Side, Site, Position Yes -Correct Procedure Yes -Procedure Performed Yes -Type of Procedure Debridement -Clinical Debridement Subcutaneous -Post Debridement Size (cm) - Length 14.1 -Post Debridement Size (cm) - Width 1.6 -Post Debridement Size (cm) - Depth 0.3 -Total Square Cm 22.56 -Wound/Ulcer Outcome Not Healed -Ulcer Cleansing Rinsed/ Irrigated with Saline -Foul Odor after Cleansing No -Bioengineered Tissue No -Bleeding Controlled with Pressure -Offloading Yes -Treatment Response Procedure Tolerated Well #5 LATERAL RLE -Time 13:56 -Correct Patient Yes -Correct Side, Site, Position Yes -Correct Procedure Yes -Procedure Performed No -Post Debridement Size (cm) - Length 0.2 -Post Debridement Size (cm) - Width 0.4 -Post Debridement Size (cm) - Depth 0.1 -Total Square Cm 0.08 #4 POSTERIOR RLE -Time 13:57 -Correct Patient Yes -Correct Side, Site, Position Yes -Correct Procedure Yes -Procedure Performed Yes -Type of Procedure Debridement -Clinical Debridement Selective -Post Debridement Size (cm) - Length 11.2 -Post Debridement Size (cm) - Width 3.1 -Post Debridement Size (cm) - Depth 1.3 -Total Square Cm 34.72 -Wound/Ulcer Outcome Not Healed -Ulcer Cleansing Rinsed/ Irrigated with Saline -Foul Odor after Cleansing No -Bioengineered Tissue No -Bleeding Controlled with Pressure -Offloading Yes -Treatment Response Procedure Tolerated Well #2 R POLLOCK CLUSTER -Time 13:57 -Correct Patient Yes -Correct Side, Site, Position Yes -Correct Procedure Yes -Procedure Performed No -Post Debridement Size (cm) - Length 2.1 -Post Debridement Size (cm) - Width 1.8 -Post Debridement Size (cm) - Depth 0.1 -Total Square Cm 3.78 #1 RIGHT GRT TOE/2ND TOE WEB SPACE -Time 13:58 -Correct Patient Yes -Correct Side, Site, Position Yes -Correct Procedure Yes -Procedure Performed No -Post Debridement Size (cm) - Length 1.0 -Post Debridement Size (cm) - Width 0.5 -Post Debridement Size (cm) - Depth 0.2 -Total Square Cm 0.50 Pain Scale: 0-10 Numeric Is Patient Pain Free? Yes No debridement was completed today - advanced wound healing product, amniofill and epicord, are incorporating Assessment/Plan Active Problems (Last Updated 09/28/18 @ 12:41 by Geraldine Steele) Ulcer of right foot with fat layer exposed (Chronic) 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) Ulcer of right lower extremity with fat layer exposed (Chronic) Type 2 diabetes mellitus with diabetic polyneuropathy (Chronic) Colonization status (Chronic) Delayed wound healing (Chronic) 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 -open second and third ray resection 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 -previous bilateral leg fasciotomies and debridements and irrigation performed previously now with right and left leg ulcers with fat and tendon layers exposed. -diabetic neuropathy. -malnutrition suspected. 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 -delayed healing. -gait impairment and fall risk. -other comorbidities Plan: I reviewed and discussed his case today. Subcutaneous and tendon excisional debridement with application of advanced wound healing products is noted bilateral. The site appears stable without signs of infection. The underlying Adaptic was kept intact and the advanced wound healing product will continue to incorporate for at least 1 more week. He was reassured no local or systemic signs of illness is suspected today. To keep the outer secondary dressing intact this next week which consists of gauze, abdominal pads, Kerlix, and Joao wrap. Is located just the Joao wrap as needed over the course the next week. He has demonstrated a favorable response to this procedure so far. I do not recommend oral antibiotics today. To continue increased protein intake. He had a previous arterial Doppler scheduled with Dr. Morgan's staff on August 02, 2018 and overall perfusion was confirmed; additional intervention or workup was not recommended. It is also noted that he did have venous Doppler performed with reflux evaluation. He did not have evidence of deep venous thrombosis or venous insufficiency at that time; the vessels were compressible. To continue with nutritional supplementation optimize healing; I recommend Juan. I recommend he sustained from smoking and alcohol activities to optimize healing as well. Prior workup summary: His workup for vasculitis and underlying autoimmune disorder has been completed. A punch biopsy was sent during his last surgical intervention on June 10 and this demonstrated inflammatory changes without malignancy. He had initial screening labs and so far he has a negative RA titer, HL of the 27, KEVIN, anti-CCP, and rheumatoid factor. Several his antibody screenings were not reportable. Hyperbaric oxygen therapy was recommended and it is noted his ejection fraction was most recently 50%. He refuses at this time. . I answered his questions. To return to the wound healing center in 1 week. To call sooner if he has any questions or concerns.
[2019-07-12 08:12] VITALS: BP 137/80; PULSE 90; RESP 18; TEMP 36.6
--- NOTE | 2019-07-12 12:42 | PN.PCM_ITS ---
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 Status: Chronic Current Visit: Yes Code(s): L97.913 - Non-pressure chronic ulcer of unspecified part of right lower leg with necrosis of muscle (5) Ulcer of right lower extremity with fat layer exposed Status: Chronic Current Visit: Yes Code(s): L97.912 - Non-pressure chronic ulcer of unspecified part of right lower leg with fat layer exposed (6) Type 2 diabetes mellitus with diabetic polyneuropathy Status: Chronic Current Visit: Yes Code(s): E11.42 - Type 2 diabetes mellitus with diabetic polyneuropathy (7) Delayed wound healing Status: Chronic Current Visit: Yes Code(s): T14.8XXD - Other injury of unspecified body region, subsequent encounter (8) Localized edema Status: Chronic Current Visit: Yes Code(s): R60.0 - Localized edema (9) Malnutrition Status: Chronic Current Visit: Yes Code(s): E46 - Unspecified protein- calorie malnutrition Type of Wound Date of Service: 07/12/19 Chief Complaint: right and left Leg ulcers and right foot ulcers History of Wound: Mr. Arguello is a 64-year-old male with multiple comorbidities follows up for delayed healing ulcers to the right foot as well as bilateral legs. These are chronic and he has had previous remote surgical intervention. He also had operating room debridement performed on June 30, 2019 bilateral lower extremities to all bilateral ulcer sites with additional application of advanced wound healing products including amnio fill and epi-cord to bilateral posterior legs. He denies chills, fever, nausea, or vomiting. He presents today with his . He refuses hyperbaric oxygen therapy treatment. The outer Joao wraps have been adjusted for swelling management this past week and otherwise the dressing stayed clean and intact. He denies odor or redness. He relates complete resolution of pain. He denies fever, chill, nausea, vomiting or other illness. Progress of Wound: improving bilateral - Physical Exam Vital Signs Temp Pulse Resp BP 97.8 F 90 18 137/80 H 07/12/19 08:12 07/12/19 08:12 07/12/19 08:12 07/12/19 08:12 General: Alert, Oriented x3, Cooperative, No apparent distress HEENT: Atraumatic Extremities: No cyanosis, Capillary Refill Less than 3 Seconds, No Calf Tenderness, Diminished Peripheral Pulses, Edema - Mild bilateral lower extremity, - - Weakness bilateral lower extremities Skin: Ulcer/ Wound - No purulence, erythema, string, odor, infection bilateral. Exposed tendon posterior bilateral legs has advanced wound healing product incorporating and well without necrosis, liquefied tissue, or infection bilateral. The peripheral skin is hairless and atrophic. Wound Measurements and Assessment WC - Nurse 1 - General Ulcer Measurement Start: 06/28/19 13:21 Freq: Status: Active Protocol: Activity Type Activity Date Activity User E-Sign Co-Sign Detail Recorded Client Recorded Date Recorded By Document 07/12/19 08:12 DL [id number] 07/12/19 08:28 DL 07/12/19 08:12 Wound Center Nurse 1 [Ulcer Assessment] #11 RIGHT MEDIAL FOOT -Photo Taken Yes -Temperature (Lisa-wound Skin No Abnormality Appearance) (Pt Warm) -Tenderness on Palpation (Lisa-wound No Skin Appearance) -Foul Odor after Cleansing No #6 POSTERIOR LLE -Photo Taken Yes -Exudate Amt Small -Temperature (Lisa-wound Skin No Abnormality Appearance) (Pt Warm) -Tenderness on Palpation (Lisa-wound No Skin Appearance) -Foul Odor after Cleansing No #5 LATERAL RLE -Temperature (Lisa-wound Skin No Abnormality Appearance) (Pt Warm) -Tenderness on Palpation (Lisa-wound No Skin Appearance) -Foul Odor after Cleansing No #4 POSTERIOR RLE -Temperature (Lisa-wound Skin No Abnormality Appearance) (Pt Warm) -Tenderness on Palpation (Lisa-wound No Skin Appearance) -Foul Odor after Cleansing No #2 R POLLOCK CLUSTER -Temperature (Lisa-wound Skin No Abnormality Appearance) (Pt Warm) -Tenderness on Palpation (Lisa-wound No Skin Appearance) -Foul Odor after Cleansing No #1 RIGHT GRT TOE/2ND TOE WEB SPACE -Temperature (Lisa-wound Skin No Abnormality Appearance) (Pt Warm) -Tenderness on Palpation (Lisa-wound No Skin Appearance) -Foul Odor after Cleansing No [Edema Assessment] -Right Calf (cm) 36 -Right Ankle (cm) 21 -Left Calf (cm) 35 -Left Ankle (cm) 20.1 Musculoskeletal: No Tenderness to Palpation of Joints or Extremities, Muscle Wasting Neurological: - - Lack of sensation intact light touch bilateral consistent with neuropathy Psych/Mental Status: Normal Affect, Appropriate Debridement Note Post-Debridement Measurements/Treatment WC - Nurse 2 - General Ulcer CM Notes Start: 06/28/19 13:21 Freq: Status: Active Protocol: Activity Type Activity Date Activity User E-Sign Co-Sign Detail Recorded Client Recorded Date Recorded By Document 06/28/19 13:45 AN [id number] 06/28/19 13:59 AN 06/28/19 13:45 Wound Center Nurse 2 #11 RIGHT MEDIAL FOOT -Time 13:53 -Correct Patient Yes -Correct Side, Site, Position Yes -Correct Procedure Yes -Procedure Performed No -Post Debridement Size (cm) - Length 11.5 -Post Debridement Size (cm) - Width 1.6 -Post Debridement Size (cm) - Depth 0.3 -Total Square Cm 18.40 #6 POSTERIOR LLE -Time 13:56 -Correct Patient Yes -Correct Side, Site, Position Yes -Correct Procedure Yes -Procedure Performed Yes -Type of Procedure Debridement -Clinical Debridement Subcutaneous -Post Debridement Size (cm) - Length 14.1 -Post Debridement Size (cm) - Width 1.6 -Post Debridement Size (cm) - Depth 0.3 -Total Square Cm 22.56 -Wound/Ulcer Outcome Not Healed -Ulcer Cleansing Rinsed/ Irrigated with Saline -Foul Odor after Cleansing No -Bioengineered Tissue No -Bleeding Controlled with Pressure -Offloading Yes -Treatment Response Procedure Tolerated Well #5 LATERAL RLE -Time 13:56 -Correct Patient Yes -Correct Side, Site, Position Yes -Correct Procedure Yes -Procedure Performed No -Post Debridement Size (cm) - Length 0.2 -Post Debridement Size (cm) - Width 0.4 -Post Debridement Size (cm) - Depth 0.1 -Total Square Cm 0.08 #4 POSTERIOR RLE -Time 13:57 -Correct Patient Yes -Correct Side, Site, Position Yes -Correct Procedure Yes -Procedure Performed Yes -Type of Procedure Debridement -Clinical Debridement Selective -Post Debridement Size (cm) - Length 11.2 -Post Debridement Size (cm) - Width 3.1 -Post Debridement Size (cm) - Depth 1.3 -Total Square Cm 34.72 -Wound/Ulcer Outcome Not Healed -Ulcer Cleansing Rinsed/ Irrigated with Saline -Foul Odor after Cleansing No -Bioengineered Tissue No -Bleeding Controlled with Pressure -Offloading Yes -Treatment Response Procedure Tolerated Well #2 R POLLOCK CLUSTER -Time 13:57 -Correct Patient Yes -Correct Side, Site, Position Yes -Correct Procedure Yes -Procedure Performed No -Post Debridement Size (cm) - Length 2.1 -Post Debridement Size (cm) - Width 1.8 -Post Debridement Size (cm) - Depth 0.1 -Total Square Cm 3.78 #1 RIGHT GRT TOE/2ND TOE WEB SPACE -Time 13:58 -Correct Patient Yes -Correct Side, Site, Position Yes -Correct Procedure Yes -Procedure Performed No -Post Debridement Size (cm) - Length 1.0 -Post Debridement Size (cm) - Width 0.5 -Post Debridement Size (cm) - Depth 0.2 -Total Square Cm 0.50 Pain Scale: 0-10 Numeric Is Patient Pain Free? Yes Wound debrided: posterior leg Wound Grade/Stage: grade 3 Type of Debridement: Excisional debridement Anesthesia Used: 5% Lidocaine Gel Depth: in the subcutaneous layer Percentage of wound debrided: 100 Instrument Used: #15 blade Tissue Removed: fibrous, devitalized subcutaneous, biofilm, slough Severity: Fat Layer Exposed Amount of bleeding with debridement: Mild Bleeding Controlled with: Pressure Patient tolerated procedure well - Additional Wound Wound debrided: posterior leg Laterality: Left Wound Grade/Stage: grade 2 Type of Debridement: Excisional debridement Anesthesia Used: 5% Lidocaine Gel Depth: in the subcutaneous layer Percentage of wound debrided: 100 Instrument Used: #15 blade Tissue Removed: fibrous, devitalized subcutaneous, biofilm, slough Severity: Fat Layer Exposed Amount of bleeding with debridement: Mild Bleeding Controlled with: Pressure Patient tolerated procedure: Patient tolerated procedure well - Additional Wound Wound debrided: medial ankle Laterality: Right Wound Grade/Stage: grade Type of Debridement: Excisional debridement Anesthesia Used: 5% Lidocaine Gel Depth: in the subcutaneous layer Percentage of wound debrided: 100 Instrument Used: #15 blade Tissue Removed: fibrous, devitalized subcutaneous, biofilm, slough Severity: Fat Layer Exposed Amount of bleeding with debridement: Mild Bleeding Controlled with: Pressure Patient tolerated procedure: Patient tolerated procedure well - Additional Wound Wound debrided: medial midfoot Laterality: Right Wound Grade/Stage: grade 3 Type of Debridement: Excisional debridement Anesthesia Used: 5% Lidocaine Gel Depth: in the subcutaneous layer Percentage of wound debrided: 100, 50 Instrument Used: #15 blade Tissue Removed: fibrous, devitalized subcutaneous, biofilm, slough Severity: Fat Layer Exposed Amount of bleeding with debridement: Mild Bleeding Controlled with: Pressure Patient tolerated procedure: Patient tolerated procedure well - Additional Wound Wound debrided: toe region Laterality: Right Wound Grade/Stage: grade 3 Type of Debridement: Excisional debridement Anesthesia Used: 5% Lidocaine Gel Depth: in the subcutaneous layer Percentage of wound debrided: 100 Instrument Used: #15 blade Tissue Removed: fibrous, devitalized subcutaneous, biofilm, slough Severity: Fat Layer Exposed Amount of bleeding with debridement: Mild Bleeding Controlled with: Pressure Patient tolerated procedure: Patient tolerated procedure well - Additional Wound Wound debrided: anterior leg cluster Laterality: Right Wound Grade/Stage: grade 1 Type of Debridement: Excisional debridement Anesthesia Used: 5% Lidocaine Gel Depth: in the subcutaneous layer Percentage of wound debrided: 10 Instrument Used: #15 blade Tissue Removed: fibrous, devitalized subcutaneous, biofilm, slough Severity: Fat Layer Exposed Amount of bleeding with debridement: Mild Bleeding Controlled with: Pressure Patient tolerated procedure: Patient tolerated procedure well Assessment/Plan Active Problems (Last Updated 09/28/18 @ 12:41 by Geraldine Steele) Ulcer of right foot with fat layer exposed (Chronic) 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) Ulcer of right lower extremity with fat layer exposed (Chronic) Type 2 diabetes mellitus with diabetic polyneuropathy (Chronic) Colonization status (Chronic) Delayed wound healing (Chronic) 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 -open second and third ray resection 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 -previous bilateral leg fasciotomies and debridements and irrigation performed previously now with right and left leg ulcers with fat and tendon layers exposed. -diabetic neuropathy. -malnutrition suspected. 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 -delayed healing. -gait impairment and fall risk. -other comorbidities Plan: I reviewed and discussed his case today. Subcutaneous and tendon excisional debridement with application of advanced wound healing products is noted bilateral. The site appears stable without signs of infection. He was reassured no local or systemic signs of illness is suspected today. To change dressing daily with Aquacel Ag bilateral. To continue increased protein intake with nutritional supplementation. To continue glycemic control. He had a previous arterial Doppler scheduled with Dr. Morgan's staff on August 02, 2018 and overall perfusion was confirmed; additional intervention or workup was not recommended. It is also noted that he did have venous Doppler performed with reflux evaluation. He did not have evidence of deep venous thrombosis or venous insufficiency at that time; the vessels were compressible. I recommend he sustained from smoking and alcohol activities to optimize healing as well. Prior workup summary: His workup for vasculitis and underlying autoimmune disorder has been completed. A punch biopsy was sent during his last surgical intervention on June 10 and this demonstrated inflammatory changes without malignancy. He had initial screening labs and so far he has a negative RA titer, HL of the 27, KEVIN, anti-CCP, and rheumatoid factor. Several his antibody screenings were not reportable. Hyperbaric oxygen therapy was recommended and it is noted his ejection fraction was most recently 50%. He refuses at this time. . I answered his questions. To return to the wound healing center in 1 week. To call sooner if he has any questions or concerns.
[2019-07-19 08:20] VITALS: BP 132/89; PULSE 95; RESP 18; TEMP 36.4
--- NOTE | 2019-07-19 09:34 | PN.PCM_ITS ---
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 Status: Chronic Current Visit: Yes Code(s): L97.913 - Non-pressure chronic ulcer of unspecified part of right lower leg with necrosis of muscle (5) Ulcer of right lower extremity with fat layer exposed Status: Chronic Current Visit: Yes Code(s): L97.912 - Non-pressure chronic ulcer of unspecified part of right lower leg with fat layer exposed (6) Type 2 diabetes mellitus with diabetic polyneuropathy Status: Chronic Current Visit: Yes Code(s): E11.42 - Type 2 diabetes mellitus with diabetic polyneuropathy (7) Delayed wound healing Status: Chronic Current Visit: Yes Code(s): T14.8XXD - Other injury of unspecified body region, subsequent encounter (8) Localized edema Status: Chronic Current Visit: Yes Code(s): R60.0 - Localized edema (9) Malnutrition Status: Chronic Current Visit: Yes Code(s): E46 - Unspecified protein- calorie malnutrition Type of Wound Date of Service: 07/19/19 Chief Complaint: right and left Leg ulcers and right foot ulcers History of Wound: Mr. Arguello is a 64-year-old male with multiple comorbidities follows up for delayed healing ulcers to the right foot as well as bilateral legs. These are chronic and he has had previous remote surgical intervention. He also had operating room debridement performed on June 30, 2019 bilateral lower extremities to all bilateral ulcer sites with additional application of advanced wound healing products including amnio fill and epi-cord to bilateral posterior legs. He denies chills, fever, nausea, or vomiting. He presents today with his . He refuses hyperbaric oxygen therapy treatment. The outer Joao wraps have been adjusted for swelling management this past week and otherwise the dressing stayed clean and intact. He denies odor or redness. He relates complete resolution of pain. He denies fever, chill, nausea, vomiting or other illness. Progress of Wound: improving bilateral - Physical Exam Vital Signs Temp Pulse Resp BP 97.5 F L 95 18 132/89 H 07/19/19 08:20 07/19/19 08:20 07/19/19 08:20 07/19/19 08:20 General: Alert, Oriented x3, Cooperative, No apparent distress Extremities: No cyanosis, Capillary Refill Less than 3 Seconds, No Calf Tenderness - negative robin and winter. Compartment soft bilateral, Diminished Peripheral Pulses, Edema - mild Skin: Ulcer/ Wound - No purulence, erythema, streaking, or infection bilateral. The peripheral skin is hairless and atrophic. The right forefoot ulcer is healed with full epithelialization. Peripheral epithelialization is noted to other ulcer sites. There is exposed tendon still noted to the distal aspect of the right posterior leg. There is no necrosis today Wound Measurements and Assessment WC - Nurse 1 - General Ulcer Measurement Start: 06/28/19 13:21 Freq: Status: Active Protocol: Activity Type Activity Date Activity User E-Sign Co-Sign Detail Recorded Client Recorded Date Recorded By Document 07/19/19 08:20 [id number] 07/19/19 08:45 RB 07/19/19 08:20 Wound Center Nurse 1 [Ulcer Assessment] #11 RIGHT MEDIAL FOOT -Combined with other wound No -Current Size (cm) - Length 12 -Current Size (cm) - Width 1.5 -Current Size (cm) - Depth 0.1 -Total Square Cm 18.0 -Photo Taken No -Tunneling No -Undermining/Tunneling No -Circular Undermining No -Exudate Amt Medium -Exudate Type Serosanguineous -Wound Margin Distinct, Outline Attached -Granulation Amt Medium (34-66%) -Granulation Quality [place] -Slough/Fibrin Yes -Necrosis Amt Medium (34-66%) -Necrotic Tissue Type Adherent Slough -Structure Exposed N/A -Texture (Lisa-wound Skin Appearance) Assessed -Moisture (Lisa-wound Skin Appearance Assessed ) -Color (Lisa-wound Skin Appearance) Assessed -Temperature (Lisa-wound Skin No Abnormality Appearance) (Pt Warm) -Tenderness on Palpation (Lisa-wound No Skin Appearance) -Ulcer Cleansing Wound Cleanser -Foul Odor after Cleansing No -Anesthetic Used 4% Lidocaine Solution #6 POSTERIOR LLE -Combined with other wound No -Current Size (cm) - Length 15 -Current Size (cm) - Width 2.8 -Current Size (cm) - Depth 0.1 -Total Square Cm 42.0 -Photo Taken No -Tunneling No -Undermining/Tunneling No -Circular Undermining No -Exudate Amt Medium -Exudate Type Serosanguineous -Wound Margin Distinct, Outline Attached -Granulation Amt Medium (34-66%) -Granulation Quality [place] -Slough/Fibrin Yes -Necrosis Amt Medium (34-66%) -Necrotic Tissue Type Adherent Slough -Structure Exposed N/A -Texture (Lisa-wound Skin Appearance) Assessed -Moisture (Lisa-wound Skin Appearance Assessed ) -Color (Lisa-wound Skin Appearance) Assessed -Temperature (Lisa-wound Skin No Abnormality Appearance) (Pt Warm) -Tenderness on Palpation (Lisa-wound No Skin Appearance) -Ulcer Cleansing Wound Cleanser -Foul Odor after Cleansing No -Anesthetic Used 4% Lidocaine Solution #4 POSTERIOR RLE -Combined with other wound No -Current Size (cm) - Length 13 -Current Size (cm) - Width 2.7 -Current Size (cm) - Depth 0.3 -Total Square Cm 35.1 -Tunneling No -Undermining/Tunneling No -Circular Undermining No -Exudate Amt Small -Exudate Type Serosanguineous -Wound Margin Distinct, Outline Attached -Granulation Amt Medium (34-66%) -Granulation Quality [place] -Slough/Fibrin Yes -Necrosis Amt Small (1-33%) -Necrotic Tissue Type Adherent Slough -Structure Exposed N/A -Texture (Lisa-wound Skin Appearance) Assessed -Moisture (Lisa-wound Skin Appearance Assessed,Dry/ ) Scaly -Color (Lisa-wound Skin Appearance) Assessed -Temperature (Lisa-wound Skin No Abnormality Appearance) (Pt Warm) -Tenderness on Palpation (Lisa-wound No Skin Appearance) -Ulcer Cleansing Wound Cleanser -Foul Odor after Cleansing No -Anesthetic Used 4% Lidocaine Solution #2 R POLLOCK CLUSTER -Combined with other wound No -Current Size (cm) - Length 19.5 -Current Size (cm) - Width 2.5 -Current Size (cm) - Depth 0.1 -Total Square Cm 48.75 -Tunneling No -Undermining/Tunneling No -Circular Undermining No -Exudate Amt Small -Exudate Type Serosanguineous -Wound Margin Distinct, Outline Attached -Granulation Amt Medium (34-66%) -Granulation Quality [place] -Slough/Fibrin Yes -Necrosis Amt Medium (34-66%) -Necrotic Tissue Type Adherent Slough -Structure Exposed N/A -Texture (Lisa-wound Skin Appearance) Assessed -Moisture (Lisa-wound Skin Appearance Assessed ) -Color (Lisa-wound Skin Appearance) Assessed -Temperature (Lisa-wound Skin No Abnormality Appearance) (Pt Warm) -Tenderness on Palpation (Lisa-wound No Skin Appearance) -Ulcer Cleansing Wound Cleanser -Foul Odor after Cleansing No -Anesthetic Used 4% Lidocaine Solution #1 RIGHT GRT TOE/2ND TOE WEB SPACE -Combined with other wound No -Current Size (cm) - Length 0.7 -Current Size (cm) - Width 0.4 -Current Size (cm) - Depth 0.1 -Total Square Cm 0.28 -Tunneling No -Undermining/Tunneling No -Circular Undermining No -Exudate Amt Medium -Exudate Type Serosanguineous -Wound Margin Distinct, Outline Attached -Granulation Amt Medium (34-66%) -Granulation Quality [place] -Slough/Fibrin Yes -Necrosis Amt Medium (34-66%) -Necrotic Tissue Type Adherent Slough -Structure Exposed N/A -Texture (Lisa-wound Skin Appearance) Assessed -Moisture (Lisa-wound Skin Appearance Assessed ) -Color (Lisa-wound Skin Appearance) Assessed -Temperature (Lisa-wound Skin No Abnormality Appearance) (Pt Warm) -Tenderness on Palpation (Lisa-wound No Skin Appearance) -Ulcer Cleansing Wound Cleanser -Foul Odor after Cleansing No -Anesthetic Used 4% Lidocaine Solution [Edema Assessment] -Lower Limb Edema Present Yes -Right Calf (cm) 36.5 -Right Ankle (cm) 27.3 -Left Calf (cm) 35.6 -Left Ankle (cm) 22.5 Musculoskeletal: No Tenderness to Palpation of Joints or Extremities, Muscle Wasting Neurological: - - Lack of normal epicritic sensation bilateral lower extremities to light touch Psych/Mental Status: Normal Affect, Appropriate Debridement Note Post-Debridement Measurements/Treatment WC - Nurse 2 - General Ulcer CM Notes Start: 06/28/19 13:21 Freq: Status: Active Protocol: Activity Type Activity Date Activity User E-Sign Co-Sign Detail Recorded Client Recorded Date Recorded By Document 06/28/19 13:45 AN [id number] 06/28/19 13:59 AN Document 07/12/19 15:45 AN [id number] 07/12/19 15:49 AN 06/28/19 07/12/19 13:45 15:45 Wound Center Nurse 2 #11 RIGHT MEDIAL FOOT -Time 13:53 09:00 -Correct Patient Yes Yes -Correct Side, Site, Position Yes Yes -Correct Procedure Yes Yes -Procedure Performed No Yes -Type of Procedure Debridement -Clinical Debridement Subcutaneous -Post Debridement Size (cm) - Length 11.5 2.6 -Post Debridement Size (cm) - Width 1.6 1.5 -Post Debridement Size (cm) - Depth 0.3 0.1 -Total Square Cm 18.40 3.90 -Wound/Ulcer Outcome Not Healed -Bleeding Controlled with Pressure -Offloading Yes -Treatment Response Procedure Tolerated Well #6 POSTERIOR LLE -Time 13:56 09:00 -Correct Patient Yes Yes -Correct Side, Site, Position Yes Yes -Correct Procedure Yes Yes -Procedure Performed Yes Yes -Type of Procedure Debridement Debridement -Clinical Debridement Subcutaneous Subcutaneous -Post Debridement Size (cm) - Length 14.1 12.9 -Post Debridement Size (cm) - Width 1.6 2.1 -Post Debridement Size (cm) - Depth 0.3 0.2 -Total Square Cm 22.56 27.09 -Wound/Ulcer Outcome Not Healed Not Healed -Ulcer Cleansing Rinsed/ Rinsed/ Irrigated with Irrigated with Saline Saline -Foul Odor after Cleansing No No -Bioengineered Tissue No No -Bleeding Controlled with Pressure Pressure -Offloading Yes Yes -Treatment Response Procedure Procedure Tolerated Well Tolerated Well #5 LATERAL RLE -Time 13:56 -Correct Patient Yes -Correct Side, Site, Position Yes -Correct Procedure Yes -Procedure Performed No -Post Debridement Size (cm) - Length 0.2 -Post Debridement Size (cm) - Width 0.4 -Post Debridement Size (cm) - Depth 0.1 -Total Square Cm 0.08 #4 POSTERIOR RLE -Time 13:57 09:00 -Correct Patient Yes Yes -Correct Side, Site, Position Yes Yes -Correct Procedure Yes Yes -Procedure Performed Yes Yes -Type of Procedure Debridement Debridement -Clinical Debridement Selective Subcutaneous -Post Debridement Size (cm) - Length 11.2 12.8 -Post Debridement Size (cm) - Width 3.1 3.5 -Post Debridement Size (cm) - Depth 1.3 0.4 -Total Square Cm 34.72 44.80 -Wound/Ulcer Outcome Not Healed Not Healed -Ulcer Cleansing Rinsed/ Rinsed/ Irrigated with Irrigated with Saline Saline -Foul Odor after Cleansing No No -Bioengineered Tissue No -Type of bioengineered Tissue Apligraf -Bleeding Controlled with Pressure Pressure -Offloading Yes Yes -Treatment Response Procedure Procedure Tolerated Well Tolerated Well #2 R POLLOCK CLUSTER -Time 13:57 09:00 -Correct Patient Yes Yes -Correct Side, Site, Position Yes Yes -Correct Procedure Yes Yes -Procedure Performed No Yes -Type of Procedure Debridement -Clinical Debridement Subcutaneous -Post Debridement Size (cm) - Length 2.1 13 -Post Debridement Size (cm) - Width 1.8 2.5 -Post Debridement Size (cm) - Depth 0.1 0.1 -Total Square Cm 3.78 32.5 -Wound/Ulcer Outcome Not Healed -Ulcer Cleansing Rinsed/ Irrigated with Saline -Foul Odor after Cleansing No -Bioengineered Tissue No -Bleeding Controlled with Pressure -Offloading Yes -Treatment Response Procedure Tolerated Well #1 RIGHT GRT TOE/2ND TOE WEB SPACE -Time 13:58 09:48 -Correct Patient Yes Yes -Correct Side, Site, Position Yes Yes -Correct Procedure Yes Yes -Procedure Performed No Yes -Type of Procedure Debridement -Clinical Debridement Subcutaneous -Post Debridement Size (cm) - Length 1.0 0.9 -Post Debridement Size (cm) - Width 0.5 0.4 -Post Debridement Size (cm) - Depth 0.2 0.1 -Total Square Cm 0.50 0.36 -Wound/Ulcer Outcome Not Healed -Ulcer Cleansing Rinsed/ Irrigated with Saline -Foul Odor after Cleansing No -Bioengineered Tissue No -Bleeding Controlled with Pressure -Offloading Yes -Treatment Response Procedure Tolerated Well Pain Scale: 0-10 Numeric Is Patient Pain Free? Yes Yes Wound debrided: posterior leg Laterality: Right Wound Grade/Stage: grade 3 Type of Debridement: Excisional debridement Anesthesia Used: 5% Lidocaine Gel Depth: in the subcutaneous layer Percentage of wound debrided: 100 Instrument Used: #15 blade Tissue Removed: fibrous, devitalized subcutaneous tissue, biofilm, slough Severity: Fat Layer Exposed Amount of bleeding with debridement: Mild Bleeding Controlled with: Pressure Patient tolerated procedure well - Additional Wound Wound debrided: medial midfoot Laterality: Right Wound Grade/Stage: grade 3 Type of Debridement: Excisional debridement Anesthesia Used: 5% Lidocaine Gel Depth: in the subcutaneous layer Percentage of wound debrided: 10 Instrument Used: #15 blade Tissue Removed: fibrous, devitalized subcutaneous tissue, biofilm, slough Severity: Fat Layer Exposed Amount of bleeding with debridement: Mild Bleeding Controlled with: Pressure Patient tolerated procedure: Patient tolerated procedure well - Additional Wound Wound debrided: medial ankle Laterality: Right Type of Debridement: Excisional debridement Anesthesia Used: 5% Lidocaine Gel Depth: in the subcutaneous layer Percentage of wound debrided: 100 Instrument Used: #15 blade Tissue Removed: fibrous, devitalized subcutaneous tissue, biofilm, slough Severity: Fat Layer Exposed Amount of bleeding with debridement: Mild Bleeding Controlled with: Pressure Patient tolerated procedure: Patient tolerated procedure well - Additional Wound Wound debrided: anterior leg Laterality: Right Wound Grade/Stage: grade 1 Type of Debridement: Excisional debridement Anesthesia Used: 5% Lidocaine Gel Depth: in the subcutaneous layer Percentage of wound debrided: 100 Instrument Used: #15 blade Tissue Removed: fibrous, devitalized subcutaneous tissue, biofilm, slough Severity: Fat Layer Exposed Amount of bleeding with debridement: Mild Bleeding Controlled with: Pressure Patient tolerated procedure: Patient tolerated procedure well - Additional Wound Wound debrided: posterior leg Laterality: Left Wound Grade/Stage: grade 2 Type of Debridement: Excisional debridement Anesthesia Used: 5% Lidocaine Gel Depth: in the subcutaneous layer Percentage of wound debrided: 100 Instrument Used: #15 blade Tissue Removed: fibrous, devitalized subcutaneous tissue, biofilm, slough Severity: Fat Layer Exposed Amount of bleeding with debridement: Mild Bleeding Controlled with: Pressure Patient tolerated procedure: Patient tolerated procedure well Assessment/Plan Active Problems (Last Updated 09/28/18 @ 12:41 by Geraldine Steele) Ulcer of right foot with fat layer exposed (Chronic) 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) Ulcer of right lower extremity with fat layer exposed (Chronic) Type 2 diabetes mellitus with diabetic polyneuropathy (Chronic) Colonization status (Chronic) Delayed wound healing (Chronic) 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 -open second and third ray resection secondary to osteomyelitis in infection and necrotizing fasciitis (right foot ulcer now with fascia and subcutaneous tissue exposed)--healed today. -previous bilateral leg fasciotomies and debridements and irrigation performed previously now with right and left leg ulcers with fat and tendon layers exposed. -diabetic neuropathy. -malnutrition suspected. 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 -delayed healing. -gait impairment and fall risk. -other comorbidities Plan: I reviewed and discussed his case today. Subcutaneous excisional debridement was performed today as noted panel. All sites appears stable without signs of infection and her demonstrating clinical improvement since the operating room procedure. He was reassured no local or systemic signs of illness is suspected today. To change dressing daily with Aquacel Ag bilateral. He is amendable to have clinical application of advanced wound healing product very prior authorization will be obtained for application of epicord and epifix. The indication and plan procedure and anticipated management were discussed previously. He is amenable to proceed upon prior authorization. This is medically necessary for limb salvage. He has adequate perfusion suspected for healing and is attempting smoking cessation. He has failed other conservative comprehensive wound healing management resulting in significant delays in healing thus far. To continue increased protein intake with nutritional supplementation. To continue glycemic control. He had a previous arterial Doppler scheduled with Dr. Morgan's staff on August 02, 2018 and overall perfusion was confirmed; additional intervention or workup was not recommended. It is also noted that he did have venous Doppler performed with reflux evaluation. He did not have evidence of deep venous thrombosis or venous insufficiency at that time; the vessels were compressible. I recommend he sustained from smoking and alcohol activities to optimize healing as well. Prior workup summary: His workup for vasculitis and underlying autoimmune disorder has been completed. A punch biopsy was sent during his last surgical intervention on June 10 and this demonstrated inflammatory changes without malignancy. He had initial screening labs and so far he has a negative RA titer, HL of the 27, KEVIN, anti-CCP, and rheumatoid factor. Several his antibody screenings were not reportable. Hyperbaric oxygen therapy was recommended and it is noted his ejection fraction was most recently 50%. He refuses at this time. . I answered his questions. To return to the wound healing center in 1 week. To call sooner if he has any questions or concerns.
== END 2019-07-22 23:59 ==
LOC: WC 08:00
PROVIDERS: Family Provider Family Medicine; PCP Family Medicine; Visit Provider Podiatrist
DX: Z01.818 Encounter for other preprocedural examination (principal); Z79.01 Long term (current) use of anticoagulants; E11.621 Type 2 diabetes mellitus with foot ulcer; E11.622 Type 2 diabetes mellitus with other skin ulcer; E11.42 Type 2 diabetes mellitus with diabetic polyneuropathy; R60.0 Localized edema; L97.812 Non-pressure chronic ulcer of other part of right lower leg with fat layer exposed; L97.512 Non-pressure chronic ulcer of other part of right foot with fat layer exposed; L97.822 Non-pressure chronic ulcer of other part of left lower leg with fat layer exposed; L97.312 Non-pressure chronic ulcer of right ankle with fat layer exposed; L97.412 Non-pressure chronic ulcer of right heel and midfoot with fat layer exposed
CPT/HCPCS: 11042; 11043; 11045; 36415; 85610; 99213; G0463

== ENCOUNTER 2019-08-16 08:00 | Outpatient (RCR) | payer MEDICARE, SELFPAY ==
[2019-06-30 08:39] VITALS: BMI 32.1
[2019-07-23 00:31] VITALS: BP 132/89; PULSE 95; RESP 18; TEMP 36.4
[2019-07-26 08:13] VITALS: BP 116/71; PULSE 102; RESP 18; TEMP 35.7; BMI 32.1
--- NOTE | 2019-07-26 09:55 | PCM.WC.PN ---
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 Current Visit: Yes Code(s): L97.913 - Non-pressure chronic ulcer of unspecified part of right lower leg with necrosis of muscle (3) Ulcer of right lower extremity with fat layer exposed Status: Chronic Current Visit: Yes Code(s): L97.912 - Non-pressure chronic ulcer of unspecified part of right lower leg with fat layer exposed (4) Type 2 diabetes mellitus with diabetic polyneuropathy Status: Chronic Current Visit: Yes Code(s): E11.42 - Type 2 diabetes mellitus with diabetic polyneuropathy (5) Delayed wound healing Status: Chronic Current Visit: Yes Code(s): T14.8XXD - Other injury of unspecified body region, subsequent encounter (6) Ulcer of left lower extremity with fat layer exposed Status: Chronic Current Visit: Yes Code(s): L97.922 - Non-pressure chronic ulcer of unspecified part of left lower leg with fat layer exposed Type of Wound Date of Service: 07/26/19 Chief Complaint: right and left Leg ulcers and right foot ulcers History of Wound: Mr. Arguello is a 64-year-old male with multiple comorbidities follows up for delayed healing ulcers to the right foot as well as bilateral legs. These are chronic and he has had previous remote surgical intervention. He also had operating room debridement performed on June 30, 2019 bilateral lower extremities to all bilateral ulcer sites with additional application of advanced wound healing products including amnio fill and epi-cord to bilateral posterior legs. He denies chills, fever, nausea, or vomiting. He presents today with his . He refuses hyperbaric oxygen therapy treatment. The outer Joao wraps have been adjusted for swelling management this past week and otherwise the dressing stayed clean and intact. He denies odor or redness. He relates complete resolution of pain. He denies fever, chill, nausea, vomiting or other illness. Progress of Wound: improving bilateral - Physical Exam Vital Signs Temp Pulse Resp BP 96.2 F L 102 H 18 116/71 07/26/19 08:13 07/26/19 08:13 07/26/19 08:13 07/26/19 08:13 General: Alert, Oriented x3, Cooperative, No apparent distress HEENT: Atraumatic Extremities: No cyanosis, Capillary Refill Less than 3 Seconds, No Calf Tenderness, Diminished Peripheral Pulses, Edema - Mild bilateral Skin: Ulcer/ Wound - No purulence, erythema, streaking, odor, infection. Ulcer beds are improving with improved granulation tissue. There is still distended exposed to the distal right posterior leg there is devitalized partially. There is no deep posterior leg compartment exposure noted in the Achilles is no longer apparent on the right lower extremity Wound Measurements and Assessment WC - Nurse 1 - General Ulcer Measurement Start: 07/26/19 08:13 Freq: Status: Active Protocol: Activity Type Activity Date Activity User E-Sign Co-Sign Detail Recorded Client Recorded Date Recorded By Document 07/26/19 08:13 [id number] 07/26/19 08:34 07/26/19 08:13 Wound Center Nurse 1 [Ulcer Assessment] #11 RIGHT MEDIAL FOOT -Combined with other wound No -Current Size (cm) - Length 11.6 -Current Size (cm) - Width 1 -Current Size (cm) - Depth 0.1 -Total Square Cm 11.6 -Photo Taken No -Epithelialization Small 1-33% -Tunneling No -Undermining/Tunneling No -Circular Undermining No -Exudate Amt Small -Exudate Type Serosanguineous -Wound Margin Flat & Intact -Granulation Amt Medium (34-66%) -Granulation Quality Red -Slough/Fibrin Yes -Necrosis Amt Medium (34-66%) -Necrotic Tissue Type Adherent Slough -Structure Exposed N/A -Texture (Lisa-wound Skin Appearance) Assessed, Scarring -Moisture (Lisa-wound Skin Appearance Assessed,Dry/ ) Scaly -Color (Lisa-wound Skin Appearance) Assessed,Rubor -Temperature (Lisa-wound Skin No Abnormality Appearance) (Pt Warm) -Tenderness on Palpation (Lisa-wound No Skin Appearance) -Ulcer Cleansing Wound Cleanser -Foul Odor after Cleansing No -Anesthetic Used 4% Lidocaine Solution #6 POSTERIOR LLE -Combined with other wound No -Current Size (cm) - Length 13.8 -Current Size (cm) - Width 1.8 -Current Size (cm) - Depth 0.2 -Total Square Cm 24.84 -Photo Taken No -Epithelialization Small 1-33% -Tunneling No -Undermining/Tunneling No -Circular Undermining No -Exudate Amt Small -Exudate Type Serosanguineous -Wound Margin Flat & Intact -Granulation Amt Medium (34-66%) -Granulation Quality [place] -Slough/Fibrin Yes -Necrosis Amt Medium (34-66%) -Necrotic Tissue Type Adherent Slough -Structure Exposed N/A -Texture (Lisa-wound Skin Appearance) Assessed, Scarring -Moisture (Lisa-wound Skin Appearance Assessed,Dry/ ) Scaly -Color (Lisa-wound Skin Appearance) Assessed -Tenderness on Palpation (Lisa-wound No Skin Appearance) -Ulcer Cleansing Wound Cleanser -Foul Odor after Cleansing No -Anesthetic Used 5% Lidocaine Gel #5 LATERAL RLE -Combined with other wound No -Current Size (cm) - Length 1 -Current Size (cm) - Width 0.6 -Current Size (cm) - Depth 0.1 -Total Square Cm 0.6 -Photo Taken No -Epithelialization Small 1-33% -Tunneling No -Undermining/Tunneling No -Circular Undermining No -Exudate Amt Small -Exudate Type Serosanguineous -Wound Margin Flat & Intact -Granulation Amt Medium (34-66%) -Granulation Quality [place] -Slough/Fibrin Yes -Necrosis Amt Small (1-33%) -Necrotic Tissue Type Adherent Slough -Structure Exposed N/A -Texture (Lisa-wound Skin Appearance) Assessed, Scarring -Moisture (Lisa-wound Skin Appearance Assessed,Dry/ ) Scaly -Color (Lisa-wound Skin Appearance) Assessed -Temperature (Lisa-wound Skin No Abnormality Appearance) (Pt Warm) -Tenderness on Palpation (Lisa-wound No Skin Appearance) -Ulcer Cleansing Wound Cleanser -Foul Odor after Cleansing No -Anesthetic Used 5% Lidocaine Gel #4 POSTERIOR RLE -Combined with other wound No -Current Size (cm) - Length 12 -Current Size (cm) - Width 3 -Current Size (cm) - Depth 0.3 -Total Square Cm 36 -Photo Taken No -Epithelialization Medium 34-66% -Tunneling No -Undermining/Tunneling No -Circular Undermining No -Exudate Amt Medium -Exudate Type Serosanguineous -Wound Margin Flat & Intact -Granulation Amt Medium (34-66%) -Granulation Quality Red -Slough/Fibrin Yes -Necrosis Amt Small (1-33%) -Necrotic Tissue Type Adherent Slough -Structure Exposed N/A -Texture (Lisa-wound Skin Appearance) Assessed, Localized Edema -Moisture (Lisa-wound Skin Appearance Assessed,Dry/ ) Scaly -Color (Lisa-wound Skin Appearance) Assessed -Temperature (Lisa-wound Skin No Abnormality Appearance) (Pt Warm) -Tenderness on Palpation (Lisa-wound No Skin Appearance) -Ulcer Cleansing Wound Cleanser -Foul Odor after Cleansing No -Anesthetic Used 4% Lidocaine Solution #2 R POLL[place] CLUSTER -Combined with other wound No -Current Size (cm) - Length 19 -Current Size (cm) - Width 2.1 -Current Size (cm) - Depth 0.1 -Total Square Cm 39.9 -Photo Taken No -Epithelialization Small 1-33% -Tunneling No -Undermining/Tunneling No -Circular Undermining No -Exudate Amt None Present -Wound Margin Flat & Intact -Granulation Amt Small (1-33%) -Granulation Quality [place] -Slough/Fibrin Yes -Necrosis Amt Large (67-100%) -Necrotic Tissue Type Adherent Slough -Structure Exposed N/A -Texture (Lisa-wound Skin Appearance) Assessed, Scarring -Moisture (Lisa-wound Skin Appearance Assessed,Dry/ ) Scaly -Color (Lisa-wound Skin Appearance) Assessed -Temperature (Lisa-wound Skin No Abnormality Appearance) (Pt Warm) -Tenderness on Palpation (Lisa-wound No Skin Appearance) -Ulcer Cleansing Wound Cleanser -Foul Odor after Cleansing No -Anesthetic Used 4% Lidocaine Solution,5% Lidocaine Gel #1 RIGHT GRT TOE/2ND TOE WEB SPACE -Combined with other wound No -Current Size (cm) - Length 0.5 -Current Size (cm) - Width 0.4 -Current Size (cm) - Depth 0.2 -Total Square Cm 0.20 -Date of Last Picture (Recall this 07/26/19 field) -Photo Taken Yes -Epithelialization Small 1-33% -Tunneling No -Undermining/Tunneling No -Circular Undermining No -Exudate Amt Small -Exudate Type Serosanguineous -Wound Margin Flat & Intact -Granulation Amt Large (67-100%) -Granulation Quality Red -Slough/Fibrin Yes -Necrosis Amt Small (1-33%) -Necrotic Tissue Type Adherent Slough -Structure Exposed N/A -Texture (Lisa-wound Skin Appearance) Assessed, Scarring -Moisture (Lisa-wound Skin Appearance Assessed,Dry/ ) Scaly -Color (Lisa-wound Skin Appearance) Assessed -Temperature (Lisa-wound Skin No Abnormality Appearance) (Pt Warm) -Tenderness on Palpation (Lisa-wound No Skin Appearance) -Ulcer Cleansing Rinsed/ Irrigated with Saline -Foul Odor after Cleansing No -Anesthetic Used 4% Lidocaine Solution [Edema Assessment] -Lower Limb Edema Present Yes -Right Calf (cm) 36.5 -Right Ankle (cm) 21.8 -Left Calf (cm) 35.4 -Left Ankle (cm) 20.4 Musculoskeletal: No Tenderness to Palpation of Joints or Extremities, Muscle Wasting, - - Ray resection status noted on the right foot Neurological: - - Lack of normal epicritic sensation consistent with neuropathy bilateral lower extremity Psych/Mental Status: Normal Affect, Appropriate Debridement Note Wound debrided: posterior leg Laterality: Right Wound Grade/Stage: grade 3 Type of Debridement: Excisional debridement Anesthesia Used: 5% Lidocaine Gel Depth: in the subcutaneous layer Percentage of wound debrided: 100 Instrument Used: #15 blade, Forceps, - Tissue Removed: fibrous, devitalized subcutaneous and tendon, biofilm, slough Severity: Necrosis of Muscle Amount of bleeding with debridement: Mild Bleeding Controlled with: Pressure Patient tolerated procedure well - Additional Wound Wound debrided: forefoot Laterality: Right Wound Grade/Stage: grade 1 Type of Debridement: Excisional debridement Anesthesia Used: 5% Lidocaine Gel Depth: in the subcutaneous layer Percentage of wound debrided: 100 Instrument Used: #15 blade Tissue Removed: fibrous, devitalized subcutaneous, biofilm, slough Severity: Fat Layer Exposed Amount of bleeding with debridement: Mild Bleeding Controlled with: Pressure Patient tolerated procedure: Patient tolerated procedure well - Additional Wound Wound debrided: medial foot Laterality: Right Wound Grade/Stage: grade 3 Type of Debridement: Excisional debridement Anesthesia Used: 5% Lidocaine Gel Depth: in the subcutaneous layer Percentage of wound debrided: 100 Instrument Used: #15 blade Tissue Removed: fibrous, devitalized subcutaneous, biofilm, slough Severity: Fat Layer Exposed Amount of bleeding with debridement: Mild Bleeding Controlled with: Pressure Patient tolerated procedure: Patient tolerated procedure well - Additional Wound Wound debrided: medial rearfoot Laterality: Right Wound Grade/Stage: grade 3 Type of Debridement: Excisional debridement Anesthesia Used: 5% Lidocaine Gel Depth: in the subcutaneous layer Percentage of wound debrided: 100 Instrument Used: #15 blade Tissue Removed: fibrous, devitalized subcutaneous, biofilm, slough Severity: Fat Layer Exposed Amount of bleeding with debridement: Mild Bleeding Controlled with: Pressure Patient tolerated procedure: Patient tolerated procedure well - Additional Wound Wound debrided: anterior leg Laterality: Right Wound Grade/Stage: grade 1 Type of Debridement: Excisional debridement Anesthesia Used: 5% Lidocaine Gel Depth: in the subcutaneous layer Percentage of wound debrided: 100 Instrument Used: #15 blade Tissue Removed: fibrous, devitalized subcutaneous, biofilm, slough Severity: Fat Layer Exposed Amount of bleeding with debridement: Mild Bleeding Controlled with: Pressure Patient tolerated procedure: Patient tolerated procedure well - Additional Wound Wound debrided: posterior leg Laterality: Left Wound Grade/Stage: grade 2 Type of Debridement: Excisional debridement Anesthesia Used: 5% Lidocaine Gel Depth: in the subcutaneous layer Percentage of wound debrided: 100 Instrument Used: #15 blade Tissue Removed: fibrous, devitalized subcutaneous, biofilm, slough Severity: Fat Layer Exposed Amount of bleeding with debridement: Mild Bleeding Controlled with: Pressure Patient tolerated procedure: Patient tolerated procedure well Assessment/Plan Active Problems (Last Updated 09/28/18 @ 12:41 by Geraldine Steele) Type 2 diabetes mellitus with foot ulcer (Chronic) 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 -open second and third ray resection secondary to osteomyelitis in infection and necrotizing fasciitis (right foot ulcer now with fascia and subcutaneous tissue exposed)--reopened today. -previous bilateral leg fasciotomies and debridements and irrigation performed previously now with right and left leg ulcers with fat and tendon layers exposed. -diabetic neuropathy. -malnutrition suspected. 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 -delayed healing. -gait impairment and fall risk. -other comorbidities Plan: I reviewed and discussed his case today. Subcutaneous excisional debridement was performed today as noted panel. Tendon debridement was performed as noted in the clinical panel to the right posterior leg. All sites appears stable without signs of infection and her demonstrating clinical improvement since the operating room procedure. He was reassured no local or systemic signs of illness is suspected today. To change dressing daily with Aquacel Ag bilateral. Hydrogel will additionally be applied to the dry posterior right leg aspect to keep a more balanced moisture status. He is amendable to have clinical application of advanced wound healing product very prior authorization will be obtained for application of epicord and epifix. The indication and plan procedure and anticipated management were discussed previously. He is amenable to proceed upon prior authorization. This is medically necessary for limb salvage. He has adequate perfusion suspected for healing and is attempting smoking cessation. He has failed other conservative comprehensive wound healing management resulting in significant delays in healing thus far. To continue increased protein intake with nutritional supplementation. To continue glycemic control. He had a previous arterial Doppler scheduled with Dr. Morgan's staff on August 02, 2018 and overall perfusion was confirmed; additional intervention or workup was not recommended. It is also noted that he did have venous Doppler performed with reflux evaluation. He did not have evidence of deep venous thrombosis or venous insufficiency at that time; the vessels were compressible. I recommend he sustained from smoking and alcohol activities to optimize healing as well. Prior workup summary: His workup for vasculitis and underlying autoimmune disorder has been completed. A punch biopsy was sent during his last surgical intervention on June 10 and this demonstrated inflammatory changes without malignancy. He had initial screening labs and so far he has a negative RA titer, HL of the 27, KEVIN, anti-CCP, and rheumatoid factor. Several his antibody screenings were not reportable. Hyperbaric oxygen therapy was recommended and it is noted his ejection fraction was most recently 50%. He refuses at this time. . I answered his questions. To return to the wound healing center in 1 week. To call sooner if he has any questions or concerns.
[2019-08-02 08:05] VITALS: BP 133/85; PULSE 104; RESP 18; TEMP 36.3; BMI 32.1
--- NOTE | 2019-08-02 09:02 | PCM.WC.PN ---
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 Current Visit: Yes Code(s): L97.913 - Non-pressure chronic ulcer of unspecified part of right lower leg with necrosis of muscle (3) Ulcer of right lower extremity with fat layer exposed Status: Chronic Current Visit: Yes Code(s): L97.912 - Non-pressure chronic ulcer of unspecified part of right lower leg with fat layer exposed (4) Type 2 diabetes mellitus with diabetic polyneuropathy Status: Chronic Current Visit: Yes Code(s): E11.42 - Type 2 diabetes mellitus with diabetic polyneuropathy (5) Delayed wound healing Status: Chronic Current Visit: Yes Code(s): T14.8XXD - Other injury of unspecified body region, subsequent encounter (6) Ulcer of left lower extremity with fat layer exposed Status: Chronic Current Visit: Yes Code(s): L97.922 - Non-pressure chronic ulcer of unspecified part of left lower leg with fat layer exposed (7) Non-pressure chronic ulcer of other part of right foot with fat layer exposed Status: Chronic Current Visit: Yes Code(s): L97.512 - Non-pressure chronic ulcer of other part of right foot with fat layer exposed Type of Wound Date of Service: 08/02/19 Chief Complaint: right and left Leg ulcers and right foot ulcers History of Wound: Mr. Arguello is a 64-year-old male with multiple comorbidities follows up for delayed healing ulcers to the right foot as well as bilateral legs. These are chronic and he has had previous remote surgical intervention. He also had operating room debridement performed on June 30, 2019 bilateral lower extremities to all bilateral ulcer sites with additional application of advanced wound healing products including amnio fill and epi-cord to bilateral posterior legs. He denies chills, fever, nausea, or vomiting. He presents today with his . He refuses hyperbaric oxygen therapy treatment. The outer Joao wraps have been adjusted for swelling management this past week and otherwise the dressing stayed clean and intact. He denies odor or redness. He relates complete resolution of pain. He is ready to proceed with epifix today that was approved. Progress of Wound: improving bilateral - Physical Exam Vital Signs Temp Pulse Resp BP 97.3 F L 104 H 18 133/85 H 08/02/19 08:05 08/02/19 08:05 08/02/19 08:05 08/02/19 08:05 General: Alert, Oriented x3, Cooperative, No apparent distress Extremities: No cyanosis, Capillary Refill Less than 3 Seconds, No Calf Tenderness - Negative Errol and [place] sign bilateral, Diminished Peripheral Pulses, Edema - Mild bilateral lower extremities, - - Weakness with plantarflexion of the right lower extremity consistent with Achilles excision. Compartments remain soft to palpate bilateral lower extremities Skin: Ulcer/ Wound - No purulence, erythema, streaking, odor, infection. There is no devitalized tendon noted to the posterior legs bilateral. His adjacent skin is hairless and atrophic. Wound Measurements and Assessment WC - Nurse 1 - General Ulcer Measurement Start: 07/26/19 08:13 Freq: Status: Active Protocol: Activity Type Activity Date Activity User E-Sign Co-Sign Detail Recorded Client Recorded Date Recorded By Document 08/02/19 08:05 [id number] 08/02/19 08:18 08/02/19 08:05 Wound Center Nurse 1 [Ulcer Assessment] 13-right superior pollock -Combined with other wound No -Current Size (cm) - Length 1.1 -Current Size (cm) - Width 2 -Current Size (cm) - Depth 0.1 -Total Square Cm 2.2 -Photo Taken Yes -Epithelialization None Present -Tunneling No -Undermining/Tunneling No -Circular Undermining No -Exudate Amt Small -Exudate Type Serosanguineous -Wound Margin Flat & Intact -Granulation Amt Medium (34-66%) -Granulation Quality Red -Slough/Fibrin Yes -Necrosis Amt Medium (34-66%) -Necrotic Tissue Type Adherent Slough -Structure Exposed N/A -Texture (Lisa-wound Skin Appearance) Assessed, Scarring -Moisture (Lisa-wound Skin Appearance Assessed,Dry/ ) Scaly -Color (Lisa-wound Skin Appearance) Assessed, Hemosiderin Staining -Temperature (Lisa-wound Skin No Abnormality Appearance) (Pt Warm) -Tenderness on Palpation (Lisa-wound No Skin Appearance) -Ulcer Cleansing Wound Cleanser -Foul Odor after Cleansing No -Anesthetic Used 4% Lidocaine Solution #11 RIGHT MEDIAL FOOT -Combined with other wound No -Current Size (cm) - Length 12 -Current Size (cm) - Width 0.7 -Current Size (cm) - Depth 0.2 -Total Square Cm 8.4 -Photo Taken No -Epithelialization Small 1-33% -Tunneling No -Undermining/Tunneling No -Circular Undermining No -Exudate Amt Small -Exudate Type Serosanguineous -Wound Margin Flat & Intact -Granulation Amt Medium (34-66%) -Granulation Quality Red -Slough/Fibrin Yes -Necrosis Amt Medium (34-66%) -Necrotic Tissue Type Adherent Slough -Structure Exposed N/A -Texture (Lisa-wound Skin Appearance) Assessed, Localized Edema -Moisture (Lisa-wound Skin Appearance Assessed ) -Color (Lisa-wound Skin Appearance) Assessed -Temperature (Lisa-wound Skin No Abnormality Appearance) (Pt Warm) -Tenderness on Palpation (Lisa-wound No Skin Appearance) -Ulcer Cleansing Wound Cleanser -Foul Odor after Cleansing No -Anesthetic Used 4% Lidocaine Solution #6 POSTERIOR LLE -Combined with other wound No -Current Size (cm) - Length 13.5 -Current Size (cm) - Width 1.3 -Current Size (cm) - Depth 0.2 -Total Square Cm 17.55 -Photo Taken No -Epithelialization Small 1-33% -Tunneling No -Undermining/Tunneling No -Circular Undermining No -Exudate Amt Small -Exudate Type Serosanguineous -Wound Margin Flat & Intact -Granulation Amt Medium (34-66%) -Granulation Quality Red -Slough/Fibrin Yes -Necrosis Amt Small (1-33%) -Necrotic Tissue Type Adherent Slough -Structure Exposed N/A -Texture (Lisa-wound Skin Appearance) Assessed, Localized Edema -Moisture (Lisa-wound Skin Appearance Assessed,Dry/ ) Scaly -Color (Lisa-wound Skin Appearance) Assessed -Temperature (Lisa-wound Skin No Abnormality Appearance) (Pt Warm) -Tenderness on Palpation (Lisa-wound No Skin Appearance) -Ulcer Cleansing Wound Cleanser -Foul Odor after Cleansing No -Anesthetic Used 4% Lidocaine Solution #5 LATERAL RLE -Combined with other wound No -Current Size (cm) - Length 0.1 -Current Size (cm) - Width 0.1 -Current Size (cm) - Depth 0.1 -Total Square Cm 0.01 -Photo Taken No -Epithelialization Large 67-100% -Tunneling No -Undermining/Tunneling No -Circular Undermining No -Exudate Amt None Present -Wound Margin Flat & Intact -Granulation Amt Large (67-100%) -Granulation Quality Red -Slough/Fibrin No -Structure Exposed N/A -Texture (Lisa-wound Skin Appearance) Assessed, Scarring -Moisture (Lisa-wound Skin Appearance Assessed,Dry/ ) Scaly -Color (Lisa-wound Skin Appearance) Assessed -Temperature (Lisa-wound Skin No Abnormality Appearance) (Pt Warm) -Tenderness on Palpation (Lisa-wound No Skin Appearance) -Ulcer Cleansing Wound Cleanser -Foul Odor after Cleansing No -Anesthetic Used 4% Lidocaine Solution #4 POSTERIOR RLE -Combined with other wound No -Current Size (cm) - Length 12 -Current Size (cm) - Width 2.7 -Current Size (cm) - Depth 0.4 -Total Square Cm 32.4 -Photo Taken No -Epithelialization None Present -Tunneling No -Undermining/Tunneling No -Circular Undermining No -Exudate Amt Small -Exudate Type Serosanguineous -Wound Margin Flat & Intact -Granulation Amt None Present (0 %) -Slough/Fibrin Yes -Necrosis Amt Large (67-100%) -Structure Exposed Tendon -Texture (Lisa-wound Skin Appearance) Assessed, Scarring -Moisture (Lisa-wound Skin Appearance Assessed,Dry/ ) Scaly -Color (Lisa-wound Skin Appearance) Assessed -Temperature (Lisa-wound Skin No Abnormality Appearance) (Pt Warm) -Tenderness on Palpation (Lisa-wound No Skin Appearance) -Ulcer Cleansing Wound Cleanser -Foul Odor after Cleansing No -Anesthetic Used 4% Lidocaine Solution #2 R POLLOCK CLUSTER -Combined with other wound No -Current Size (cm) - Length 8 -Current Size (cm) - Width 1 -Current Size (cm) - Depth 0.1 -Total Square Cm 8 -Photo Taken No -Epithelialization Small 1-33% -Tunneling No -Undermining/Tunneling No -Circular Undermining No -Exudate Amt Small -Exudate Type Serosanguineous -Wound Margin Flat & Intact -Granulation Amt Medium (34-66%) -Granulation Quality Red -Slough/Fibrin Yes -Necrosis Amt Small (1-33%) -Necrotic Tissue Type Adherent Slough -Structure Exposed N/A -Texture (Lisa-wound Skin Appearance) Assessed, Scarring -Moisture (Lisa-wound Skin Appearance Assessed,Dry/ ) Scaly -Color (Lisa-wound Skin Appearance) Assessed, Hemosiderin Staining -Temperature (Lisa-wound Skin No Abnormality Appearance) (Pt Warm) -Tenderness on Palpation (Lisa-wound No Skin Appearance) -Ulcer Cleansing Wound Cleanser -Foul Odor after Cleansing No -Anesthetic Used 4% Lidocaine Solution #1 RIGHT GRT TOE/2ND TOE WEB SPACE -Combined with other wound No -Current Size (cm) - Length 0.6 -Current Size (cm) - Width 0.2 -Current Size (cm) - Depth 0.2 -Total Square Cm 0.12 -Photo Taken No -Epithelialization Small 1-33% -Tunneling No -Undermining/Tunneling No -Circular Undermining No -Exudate Amt Small -Exudate Type Serosanguineous -Wound Margin Flat & Intact -Granulation Amt Small (1-33%) -Granulation Quality [place] -Slough/Fibrin Yes -Necrosis Amt Medium (34-66%) -Necrotic Tissue Type Adherent Slough -Structure Exposed N/A -Texture (Lisa-wound Skin Appearance) Assessed -Moisture (Lisa-wound Skin Appearance Assessed,Dry/ ) Scaly -Color (Lisa-wound Skin Appearance) Assessed -Temperature (Lisa-wound Skin No Abnormality Appearance) (Pt Warm) -Tenderness on Palpation (Lisa-wound No Skin Appearance) -Ulcer Cleansing Wound Cleanser -Foul Odor after Cleansing No -Anesthetic Used 4% Lidocaine Solution [Edema Assessment] -Lower Limb Edema Present No -Right Calf (cm) 36.5 -Right Ankle (cm) 21.5 -Left Calf (cm) 36.2 -Left Ankle (cm) 20.5 WC - Nurse 2 - General Ulcer CM Notes Start: 07/26/19 08:13 Freq: Status: Active Protocol: Activity Type Activity Date Activity User E-Sign Co-Sign Detail Recorded Client Recorded Date Recorded By Document 08/02/19 08:33 AN [id number] 08/02/19 08:43 AN 08/02/19 08:33 Wound Center Nurse 2 [Procedure/Treatment] 13-right superior pollock -Time 08:34 -Correct Patient Yes -Correct Side, Site, Position Yes -Correct Procedure Yes -Procedure Performed Yes -Type of Procedure Debridement -Clinical Debridement Subcutaneous -Post Debridement Size (cm) - Length 1.1 -Post Debridement Size (cm) - Width 2.0 -Post Debridement Size (cm) - Depth 0.1 -Total Square Cm 2.20 -Wound/Ulcer Outcome Not Healed -Ulcer Cleansing Rinsed/ Irrigated with Saline -Foul Odor after Cleansing No -Bleeding Controlled with Pressure -Offloading Yes -Treatment Response Procedure Tolerated Well #11 RIGHT MEDIAL FOOT -Time 08:34 -Correct Patient Yes -Correct Side, Site, Position Yes -Correct Procedure Yes -Procedure Performed Yes -Type of Procedure Debridement -Clinical Debridement Subcutaneous -Post Debridement Size (cm) - Length 12 -Post Debridement Size (cm) - Width 0.8 -Post Debridement Size (cm) - Depth 0.2 -Total Square Cm 9.6 -Wound/Ulcer Outcome Not Healed -Ulcer Cleansing Rinsed/ Irrigated with Saline -Bioengineered Tissue No -Bleeding Controlled with Pressure -Offloading Yes -Treatment Response Procedure Tolerated Well #6 POSTERIOR LLE -Time 08:35 -Correct Patient Yes -Correct Side, Site, Position Yes -Correct Procedure Yes -Procedure Performed Yes -Type of Procedure Debridement -Clinical Debridement Subcutaneous -Post Debridement Size (cm) - Length 13.6 -Post Debridement Size (cm) - Width 1.4 -Post Debridement Size (cm) - Depth 0.2 -Total Square Cm 19.04 -Wound/Ulcer Outcome Not Healed -Ulcer Cleansing Rinsed/ Irrigated with Saline -Bleeding Controlled with Pressure -Offloading Yes -Treatment Response Procedure Tolerated Well #5 LATERAL RLE -Time 08:35 -Correct Patient Yes -Correct Side, Site, Position Yes -Correct Procedure Yes -Procedure Performed Yes -Type of Procedure Debridement -Clinical Debridement Subcutaneous -Post Debridement Size (cm) - Length 0.2 -Post Debridement Size (cm) - Width 0.2 -Post Debridement Size (cm) - Depth 0.1 -Total Square Cm 0.04 -Wound/Ulcer Outcome Not Healed -Ulcer Cleansing Rinsed/ Irrigated with Saline -Bleeding Controlled with Pressure -Offloading Yes -Treatment Response Procedure Tolerated Well #4 POSTERIOR RLE -Time 08:35 -Correct Patient Yes -Correct Side, Site, Position Yes -Correct Procedure Yes -Procedure Performed Yes -Type of Procedure Debridement -Clinical Debridement Subcutaneous -Post Debridement Size (cm) - Length 12.1 -Post Debridement Size (cm) - Width 2.8 -Post Debridement Size (cm) - Depth 0.4 -Total Square Cm 33.88 -Wound/Ulcer Outcome Not Healed -Foul Odor after Cleansing No -Bioengineered Tissue Yes -Type of bioengineered Tissue EPIFIX -Expiration Date 12/23/23 -Product Lot Number [id number] -Bleeding Controlled with Pressure -Offloading Yes -Treatment Response Procedure Tolerated Well #2 R POLLOCK CLUSTER -Time 08:36 -Correct Patient Yes -Correct Side, Site, Position Yes -Correct Procedure Yes -Procedure Performed Yes -Type of Procedure Debridement -Clinical Debridement Subcutaneous -Post Debridement Size (cm) - Length 8.1 -Post Debridement Size (cm) - Width 1.0 -Post Debridement Size (cm) - Depth 0.1 -Total Square Cm 8.10 -Wound/Ulcer Outcome Not Healed -Ulcer Cleansing Rinsed/ Irrigated with Saline -Bleeding Controlled with Pressure -Treatment Response Procedure Tolerated Well #1 RIGHT GRT TOE/2ND TOE WEB SPACE -Time 08:36 -Correct Patient Yes -Correct Side, Site, Position Yes -Correct Procedure Yes -Procedure Performed Yes -Type of Procedure Debridement -Clinical Debridement Subcutaneous -Post Debridement Size (cm) - Length 0.7 -Post Debridement Size (cm) - Width 0.2 -Post Debridement Size (cm) - Depth 0.2 -Total Square Cm 0.14 -Wound/Ulcer Outcome Not Healed -Foul Odor after Cleansing No -Bleeding Controlled with Pressure -Offloading Yes -Treatment Response Procedure Tolerated Well [See Physician Procedure note for Specifics] Pain Scale: 0-10 Numeric [Pain] -Is Patient Pain Free? Yes Musculoskeletal: No Tenderness to Palpation of Joints or Extremities, Muscle Wasting, - - Forefoot amputation noted right Neurological: - - Lack of normal epicritic sensation light touch consistent with neuropathy bilateral lower extremities Psych/Mental Status: Normal Affect, Appropriate Debridement Note Post-Debridement Measurements/Treatment WC - Nurse 2 - General Ulcer CM Notes Start: 07/26/19 08:13 Freq: Status: Active Protocol: Activity Type Activity Date Activity User E-Sign Co-Sign Detail Recorded Client Recorded Date Recorded By Document 07/26/19 11:52 AN [id number] 07/26/19 11:57 AN Document 08/02/19 08:33 AN [id number] 08/02/19 08:43 AN 07/26/19 08/02/19 11:52 08:33 Wound Center Nurse 2 13-right superior pollock -Time 08:34 -Correct Patient Yes -Correct Side, Site, Position Yes -Correct Procedure Yes -Procedure Performed Yes -Type of Procedure Debridement -Clinical Debridement Subcutaneous -Post Debridement Size (cm) - Length 1.1 -Post Debridement Size (cm) - Width 2.0 -Post Debridement Size (cm) - Depth 0.1 -Total Square Cm 2.20 -Wound/Ulcer Outcome Not Healed -Ulcer Cleansing Rinsed/ Irrigated with Saline -Foul Odor after Cleansing No -Bleeding Controlled with Pressure -Offloading Yes -Treatment Response Procedure Tolerated Well #11 RIGHT MEDIAL FOOT -Time 11:53 08:34 -Correct Patient Yes Yes -Correct Side, Site, Position Yes Yes -Correct Procedure Yes Yes -Procedure Performed Yes Yes -Type of Procedure Debridement Debridement -Clinical Debridement Subcutaneous Subcutaneous -Post Debridement Size (cm) - Length 11.6 12 -Post Debridement Size (cm) - Width 1.0 0.8 -Post Debridement Size (cm) - Depth 0.1 0.2 -Total Square Cm 11.60 9.6 -Wound/Ulcer Outcome Not Healed Not Healed -Ulcer Cleansing Rinsed/ Rinsed/ Irrigated with Irrigated with Saline Saline -Foul Odor after Cleansing No -Bioengineered Tissue No No -Bleeding Controlled with Pressure Pressure -Offloading Yes Yes -Treatment Response Procedure Procedure Tolerated Well Tolerated Well #6 POSTERIOR LLE -Time 09:00 08:35 -Correct Patient Yes Yes -Correct Side, Site, Position Yes Yes -Correct Procedure Yes Yes -Procedure Performed Yes Yes -Type of Procedure Debridement Debridement -Clinical Debridement Subcutaneous Subcutaneous -Post Debridement Size (cm) - Length 13.8 13.6 -Post Debridement Size (cm) - Width 1.8 1.4 -Post Debridement Size (cm) - Depth 0.2 0.2 -Total Square Cm 24.84 19.04 -Wound/Ulcer Outcome Not Healed Not Healed -Ulcer Cleansing Rinsed/ Rinsed/ Irrigated with Irrigated with Saline Saline -Foul Odor after Cleansing No -Bioengineered Tissue No -Bleeding Controlled with Pressure Pressure -Offloading Yes Yes -Treatment Response Procedure Procedure Tolerated Well Tolerated Well #5 LATERAL RLE -Time 11:55 08:35 -Correct Patient Yes Yes -Correct Side, Site, Position Yes Yes -Correct Procedure Yes Yes -Procedure Performed Yes Yes -Type of Procedure Debridement Debridement -Clinical Debridement Subcutaneous Subcutaneous -Post Debridement Size (cm) - Length 1.0 0.2 -Post Debridement Size (cm) - Width 0.6 0.2 -Post Debridement Size (cm) - Depth 0.1 0.1 -Total Square Cm 0.60 0.04 -Wound/Ulcer Outcome Not Healed Not Healed -Ulcer Cleansing Rinsed/ Rinsed/ Irrigated with Irrigated with Saline Saline -Foul Odor after Cleansing No -Bioengineered Tissue No -Bleeding Controlled with Pressure Pressure -Offloading Yes Yes -Treatment Response Procedure Procedure Tolerated Well Tolerated Well #4 POSTERIOR RLE -Time 11: 08:35 -Correct Patient Yes Yes -Correct Side, Site, Position Yes Yes -Correct Procedure Yes Yes -Procedure Performed Yes Yes -Type of Procedure Debridement Debridement -Clinical Debridement Subcutaneous Subcutaneous -Post Debridement Size (cm) - Length 12 12.1 -Post Debridement Size (cm) - Width 3 2.8 -Post Debridement Size (cm) - Depth 0.3 0.4 -Total Square Cm 36 33.88 -Wound/Ulcer Outcome Not Healed Not Healed -Ulcer Cleansing Rinsed/ Irrigated with Saline -Foul Odor after Cleansing No No -Bioengineered Tissue No Yes -Type of bioengineered Tissue EPIFIX -Expiration Date 12/23/23 -Product Lot Number [id number] -Bleeding Controlled with Pressure Pressure -Offloading Yes Yes -Treatment Response Procedure Procedure Tolerated Well Tolerated Well #2 R POLLOCK CLUSTER -Time 11 08:36 -Correct Patient Yes Yes -Correct Side, Site, Position Yes Yes -Correct Procedure Yes Yes -Procedure Performed Yes Yes -Type of Procedure Debridement Debridement -Clinical Debridement Subcutaneous Subcutaneous -Post Debridement Size (cm) - Length 19 8.1 -Post Debridement Size (cm) - Width 2.1 1.0 -Post Debridement Size (cm) - Depth 0.1 0.1 -Total Square Cm 39.9 8.10 -Wound/Ulcer Outcome Not Healed Not Healed -Ulcer Cleansing Rinsed/ Rinsed/ Irrigated with Irrigated with Saline Saline -Foul Odor after Cleansing No -Bioengineered Tissue No -Bleeding Controlled with Pressure Pressure -Offloading Yes -Treatment Response Procedure Procedure Tolerated Well Tolerated Well #1 RIGHT GRT TOE/2ND TOE WEB SPACE -Time 11:56 08:36 -Correct Patient Yes Yes -Correct Side, Site, Position Yes Yes -Correct Procedure Yes Yes -Procedure Performed Yes Yes -Type of Procedure Debridement Debridement -Clinical Debridement Subcutaneous Subcutaneous -Post Debridement Size (cm) - Length 0.5 0.7 -Post Debridement Size (cm) - Width 0.4 0.2 -Post Debridement Size (cm) - Depth 0.2 0.2 -Total Square Cm 0.20 0.14 -Wound/Ulcer Outcome Not Healed Not Healed -Ulcer Cleansing Rinsed/ Irrigated with Saline -Foul Odor after Cleansing No No -Bioengineered Tissue No -Bleeding Controlled with Pressure Pressure -Offloading Yes Yes -Treatment Response Procedure Procedure Tolerated Well Tolerated Well Pain Scale: 0-10 Numeric Is Patient Pain Free? Yes Yes Wound debrided: anterior leg Laterality: Right Wound Grade/Stage: grade 1 Type of Debridement: Excisional debridement Anesthesia Used: 5% Lidocaine Gel Depth: in the subcutaneous layer Percentage of wound debrided: 100 Instrument Used: #15 blade Tissue Removed: fibrous, devitalized subcutaneous, biofilm, slough Severity: Fat Layer Exposed Amount of bleeding with debridement: Mild Bleeding Controlled with: Pressure Patient tolerated procedure well - Additional Wound Wound debrided: distal forefoot Laterality: Right Wound Grade/Stage: grade 3 Type of Debridement: Excisional debridement Anesthesia Used: 5% Lidocaine Gel Depth: in the subcutaneous layer Percentage of wound debrided: 100 Instrument Used: #15 blade Tissue Removed: fibrous, devitalized subcutaneous, biofilm, slough Severity: Fat Layer Exposed Amount of bleeding with debridement: Mild Bleeding Controlled with: Pressure Patient tolerated procedure: Patient tolerated procedure well - Additional Wound Wound debrided: medial foot Laterality: Right Wound Grade/Stage: grade 3 Type of Debridement: Excisional debridement Anesthesia Used: 5% Lidocaine Gel Depth: in the subcutaneous layer Percentage of wound debrided: 100 Instrument Used: #15 blade Tissue Removed: fibrous, devitalized subcutaneous, biofilm, slough Severity: Fat Layer Exposed Amount of bleeding with debridement: Mild Bleeding Controlled with: Pressure Patient tolerated procedure: Patient tolerated procedure well - Additional Wound Wound debrided: medial hindfoot Laterality: Right Wound Grade/Stage: grade 3 Type of Debridement: Excisional debridement Anesthesia Used: 5% Lidocaine Gel Depth: in the subcutaneous layer Percentage of wound debrided: 100 Instrument Used: #15 blade Tissue Removed: fibrous, devitalized subcutaneous, biofilm, slough Severity: Fat Layer Exposed Amount of bleeding with debridement: Mild Bleeding Controlled with: Pressure Patient tolerated procedure: Patient tolerated procedure well - Additional Wound Wound debrided: posterior leg Laterality: Right Wound Grade/Stage: grade 3 Type of Debridement: Excisional debridement Anesthesia Used: 5% Lidocaine Gel Depth: in the subcutaneous layer Percentage of wound debrided: 100 Instrument Used: #15 blade Tissue Removed: fibrous, devitalized subcutaneous, biofilm, slough Severity: Fat Layer Exposed Amount of bleeding with debridement: Mild Bleeding Controlled with: Pressure Patient tolerated procedure: Patient tolerated procedure well - Additional Wound Wound debrided: posterior leg Laterality: Left Wound Grade/Stage: grade 2 Type of Debridement: Excisional debridement Depth: in the subcutaneous layer Percentage of wound debrided: 100 Instrument Used: #15 blade Tissue Removed: fibrous, devitalized subcutaneous, biofilm, slough Severity: Fat Layer Exposed Amount of bleeding with debridement: Mild Bleeding Controlled with: Pressure Patient tolerated procedure: Patient tolerated procedure well Assessment/Plan Active Problems (Last Updated 09/28/18 @ 12:41 by Geraldine Steele) Type 2 diabetes mellitus with foot ulcer (Chronic) Non-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) 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 -open second and third ray resection secondary to osteomyelitis in infection and necrotizing fasciitis (right foot ulcer now with fascia and subcutaneous tissue exposed)--reopened today. -previous bilateral leg fasciotomies and debridements and irrigation performed previously now with right and left leg ulcers with fat and tendon layers exposed. -diabetic neuropathy. -malnutrition suspected. 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 -delayed healing. -gait impairment and fall risk. -other comorbidities Plan: I reviewed and discussed his case today. Subcutaneous excisional debridement was performed today as noted panel to all sites. All sites appears stable without signs of infection and her demonstrating clinical improvement since the operating room procedure. He is amenable to proceed with epi-fix application today. Verbal consent was obtained and this was applied according standard protocol. This was secured in place with a wound veil and Steri-Strips. He tolerated this well. He was advised to keep this clean and intact until follow-up visit next week to the posterior right leg. It is noted the advance product was broken into smaller pieces and placed around the peripheral border to optimize ulcer stimulation. Indication, planned procedure, anticipated healing and management were discussed in detail with the patient. He understands this is a staged application. This is medically necessary for limb salvage. He has demonstrated significant delays in healing under his prior comprehensive wound healing plan. He was reassured no local or systemic signs of illness is suspected today. To change the other ulcer sites dressings daily with Aquacel Ag bilateral. To continue increased protein intake with nutritional supplementation. To continue glycemic control. He had a previous arterial Doppler scheduled with Dr. Morgan's staff on August 02, 2018 and overall perfusion was confirmed; additional intervention or workup was not recommended. It is also noted that he did have venous Doppler performed with reflux evaluation. He did not have evidence of deep venous thrombosis or venous insufficiency at that time; the vessels were compressible. I recommend he sustained from smoking and alcohol activities to optimize healing as well. Prior workup summary: His workup for vasculitis and underlying autoimmune disorder has been completed. A punch biopsy was sent during his last surgical intervention on June 10 and this demonstrated inflammatory changes without malignancy. He had initial screening labs and so far he has a negative RA titer, HL of the 27, KEVIN, anti-CCP, and rheumatoid factor. Several his antibody screenings were not reportable. Hyperbaric oxygen therapy was recommended and it is noted his ejection fraction was most recently 50%. He refuses at this time. . I answered his questions. To return to the wound healing center in 1 week. To call sooner if he has any questions or concerns.
[2019-08-09 08:13] VITALS: BP 129/93; PULSE 88; RESP 20; TEMP 35.9; BMI 32.1
--- NOTE | 2019-08-09 10:01 | PN.PCM_ITS ---
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 Current Visit: Yes Code(s): L97.913 - Non-pressure chronic ulcer of unspecified part of right lower leg with necrosis of muscle (3) Ulcer of right lower extremity with fat layer exposed Status: Chronic Current Visit: Yes Code(s): L97.912 - Non-pressure chronic ulcer of unspecified part of right lower leg with fat layer exposed (4) Type 2 diabetes mellitus with diabetic polyneuropathy Status: Chronic Current Visit: Yes Code(s): E11.42 - Type 2 diabetes mellitus with diabetic polyneuropathy (5) Delayed wound healing Status: Chronic Current Visit: Yes Code(s): T14.8XXD - Other injury of unspecified body region, subsequent encounter (6) Ulcer of left lower extremity with fat layer exposed Status: Chronic Current Visit: Yes Code(s): L97.922 - Non-pressure chronic ulcer of unspecified part of left lower leg with fat layer exposed (7) Non-pressure chronic ulcer of other part of right foot with fat layer exposed Status: Chronic Current Visit: Yes Code(s): L97.512 - Non-pressure chronic ulcer of other part of right foot with fat layer exposed Type of Wound Date of Service: 08/09/19 Chief Complaint: right and left Leg ulcers and right foot ulcers History of Wound: Mr. Arguello is a 64-year-old male with multiple comorbidities follows up for delayed healing ulcers to the right foot as well as bilateral l egs. These are chronic and he has had previous remote surgical intervention. He also had operating room debridement performed on June 30, 2019 bilateral lower extremities to all bilateral ulcer sites with additional application of advanced wound healing products including amnio fill and epi-cord to bilateral posterior legs. He denies chills, fever, nausea, or vomiting. He presents today with his . He refuses hyperbaric oxygen therapy treatment. He denies odor or redness. He relates complete resolution of pain. He is ready to proceed with epifix today that was approved. Progress of Wound: improving bilateral - Physical Exam Vital Signs Temp Pulse Resp BP 96.6 F L 88 20 H 129/93 H 08/09/19 08:13 08/09/19 08:13 08/09/19 08:13 08/09/19 08:13 General: Alert, Oriented x3, Cooperative, No apparent distress Extremities: No cyanosis, Capillary Refill Less than 3 Seconds, No Calf Tenderness, Diminished Peripheral Pulses, Edema Skin: Ulcer/ Wound - No purulence, erythema, string, odor, infection. Peripheral skin is hairless and atrophic Wound Measurements and Assessment WC - Nurse 1 - General Ulcer Measurement Start: 07/26/19 08:13 Freq: Status: Active Protocol: Activity Type Activity Date Activity User E-Sign Co-Sign Detail Recorded Client Recorded Date Recorded By Document 08/09/19 08:13 DL [id number] 08/09/19 08:27 DL 08/09/19 08:13 Wound Center Nurse 1 [Ulcer Assessment] 13-right superior pollock -Current Size (cm) - Length 1 -Current Size (cm) - Width 1.8 -Current Size (cm) - Depth 0.1 -Total Square Cm 1.8 -Photo Taken No -Exudate Amt Small -Exudate Type Serosanguineous -Wound Margin Distinct, Outline Attached -Granulation Amt None Present (0 %) -Necrosis Amt Large (67-100%) -Necrotic Tissue Type Adherent Slough -Structure Exposed N/A -Texture (Lisa-wound Skin Appearance) Scarring -Moisture (Lisa-wound Skin Appearance Dry/Scaly ) -Color (Lisa-wound Skin Appearance) Hemosiderin Staining -Temperature (Lisa-wound Skin No Abnormality Appearance) (Pt Warm) -Tenderness on Palpation (Lisa-wound No Skin Appearance) -Ulcer Cleansing Wound Cleanser -Foul Odor after Cleansing No -Anesthetic Used 4% Lidocaine Solution #11 RIGHT MEDIAL FOOT -Current Size (cm) - Length 11.7 -Current Size (cm) - Width 1.6 -Current Size (cm) - Depth 0.2 -Total Square Cm 18.72 -Photo Taken No -Exudate Amt Small -Exudate Type Serosanguineous -Wound Margin Distinct, Outline Attached -Granulation Amt Medium (34-66%) -Granulation Quality Red -Necrosis Amt Medium (34-66%) -Necrotic Tissue Type Adherent Slough -Structure Exposed N/A -Texture (Lisa-wound Skin Appearance) Scarring -Moisture (Lisa-wound Skin Appearance Dry/Scaly ) -Color (Lisa-wound Skin Appearance) Hemosiderin Staining,Rubor -Temperature (Lisa-wound Skin No Abnormality Appearance) (Pt Warm) -Tenderness on Palpation (Lisa-wound No Skin Appearance) -Ulcer Cleansing Wound Cleanser -Foul Odor after Cleansing No -Anesthetic Used 4% Lidocaine Solution #6 POSTERIOR LLE -Current Size (cm) - Length 13 -Current Size (cm) - Width 1.6 -Current Size (cm) - Depth 0.1 -Total Square Cm 20.8 -Photo Taken No -Exudate Amt Small -Exudate Type Serosanguineous -Wound Margin Thickened -Granulation Amt Medium (34-66%) -Granulation Quality [place],Red -Necrosis Amt Medium (34-66%) -Necrotic Tissue Type Adherent Slough -Structure Exposed N/A -Texture (Lisa-wound Skin Appearance) Scarring -Moisture (Lisa-wound Skin Appearance Dry/Scaly ) -Color (Lisa-wound Skin Appearance) Hemosiderin Staining -Temperature (Lisa-wound Skin No Abnormality Appearance) (Pt Warm) -Tenderness on Palpation (Lisa-wound No Skin Appearance) -Ulcer Cleansing Wound Cleanser -Foul Odor after Cleansing No -Anesthetic Used 4% Lidocaine Solution #5 LATERAL RLE -Current Size (cm) - Length 0.1 -Current Size (cm) - Width 0.1 -Current Size (cm) - Depth 0.1 -Total Square Cm 0.01 -Photo Taken No -Exudate Amt None Present -Wound Margin Flat & Intact -Granulation Amt Large (67-100%) -Granulation Quality [place] -Necrosis Amt None Present (0 %) -Structure Exposed N/A -Texture (Lisa-wound Skin Appearance) Scarring -Moisture (Lisa-wound Skin Appearance Dry/Scaly ) -Color (Lisa-wound Skin Appearance) Hemosiderin Staining -Temperature (Lisa-wound Skin No Abnormality Appearance) (Pt Warm) -Tenderness on Palpation (Lisa-wound No Skin Appearance) -Ulcer Cleansing Wound Cleanser -Foul Odor after Cleansing No #4 POSTERIOR RLE -Current Size (cm) - Length 12.6 -Current Size (cm) - Width 3.7 -Current Size (cm) - Depth 0.3 -Total Square Cm 46.62 -Photo Taken No -Exudate Amt Small -Exudate Type Serosanguineous -Wound Margin Thickened -Granulation Amt Large (67-100%) -Granulation Quality [place],Red -Necrosis Amt Small (1-33%) -Necrotic Tissue Type Adherent Slough -Structure Exposed Fascia,N/A -Texture (Lisa-wound Skin Appearance) Scarring -Moisture (Lisa-wound Skin Appearance Dry/Scaly ) -Color (Lisa-wound Skin Appearance) Hemosiderin Staining -Temperature (Lisa-wound Skin No Abnormality Appearance) (Pt Warm) -Tenderness on Palpation (Lisa-wound No Skin Appearance) -Ulcer Cleansing Wound Cleanser -Foul Odor after Cleansing No -Anesthetic Used 4% Lidocaine Solution #2 R POLLOCK CLUSTER -Current Size (cm) - Length 8.2 -Current Size (cm) - Width 1 -Current Size (cm) - Depth 0.1 -Total Square Cm 8.2 -Photo Taken No -Exudate Amt None Present -Wound Margin Thickened -Granulation Amt Small (1-33%) -Granulation Quality [place] -Necrosis Amt Small (1-33%) -Necrotic Tissue Type Adherent Slough -Structure Exposed Fat Layer Exposed -Texture (Lisa-wound Skin Appearance) Scarring -Moisture (Lisa-wound Skin Appearance Dry/Scaly ) -Color (Lisa-wound Skin Appearance) Hemosiderin Staining -Temperature (Lisa-wound Skin No Abnormality Appearance) (Pt Warm) -Tenderness on Palpation (Lisa-wound No Skin Appearance) -Ulcer Cleansing Wound Cleanser -Foul Odor after Cleansing No -Anesthetic Used 4% Lidocaine Solution #1 RIGHT GRT TOE/2ND TOE WEB SPACE -Current Size (cm) - Length 0.5 -Current Size (cm) - Width 0.4 -Current Size (cm) - Depth 0.1 -Total Square Cm 0.20 -Photo Taken No -Exudate Amt None Present -Wound Margin Flat & Intact -Granulation Amt None Present (0 %) -Necrosis Amt Small (1-33%) -Necrotic Tissue Type Adherent Slough -Texture (Lisa-wound Skin Appearance) Scarring -Moisture (Lisa-wound Skin Appearance Dry/Scaly ) -Color (Lisa-wound Skin Appearance) Hemosiderin Staining -Temperature (Lisa-wound Skin No Abnormality Appearance) (Pt Warm) -Tenderness on Palpation (Lisa-wound No Skin Appearance) -Ulcer Cleansing Wound Cleanser -Foul Odor after Cleansing No -Anesthetic Used 4% Lidocaine Solution [Edema Assessment] -Right Calf (cm) 35.3 -Right Ankle (cm) 22.5 -Left Calf (cm) 35.7 -Left Ankle (cm) 20.4 Musculoskeletal: No Tenderness to Palpation of Joints or Extremities, Muscle Wasting Neurological: - - Lack of normal epicritic sensation light touch consistent with neuropathy Psych/Mental Status: Normal Affect, Appropriate Debridement Note Post-Debridement Measurements/Treatment WC - Nurse 2 - General Ulcer CM Notes Start: 07/26/19 08:13 Freq: Status: Active Protocol: Activity Type Activity Date Activity User E-Sign Co-Sign Detail Recorded Client Recorded Date Recorded By Document 07/26/19 11:52 AN [id number] 07/26/19 11:57 AN Document 08/02/19 08:33 AN [id number] 08/02/19 08:43 AN 07/26/19 08/02/19 11:52 08:33 Wound Center Nurse 2 13-right superior pollock -Time 08:34 -Correct Patient Yes -Correct Side, Site, Position Yes -Correct Procedure Yes -Procedure Performed Yes -Type of Procedure Debridement -Clinical Debridement Subcutaneous -Post Debridement Size (cm) - Length 1.1 -Post Debridement Size (cm) - Width 2.0 -Post Debridement Size (cm) - Depth 0.1 -Total Square Cm 2.20 -Wound/Ulcer Outcome Not Healed -Ulcer Cleansing Rinsed/ Irrigated with Saline -Foul Odor after Cleansing No -Bleeding Controlled with Pressure -Offloading Yes -Treatment Response Procedure Tolerated Well #11 RIGHT MEDIAL FOOT -Time 11:53 08:34 -Correct Patient Yes Yes -Correct Side, Site, Position Yes Yes -Correct Procedure Yes Yes -Procedure Performed Yes Yes -Type of Procedure Debridement Debridement -Clinical Debridement Subcutaneous Subcutaneous -Post Debridement Size (cm) - Length 11.6 12 -Post Debridement Size (cm) - Width 1.0 0.8 -Post Debridement Size (cm) - Depth 0.1 0.2 -Total Square Cm 11.60 9.6 -Wound/Ulcer Outcome Not Healed Not Healed -Ulcer Cleansing Rinsed/ Rinsed/ Irrigated with Irrigated with Saline Saline -Foul Odor after Cleansing No -Bioengineered Tissue No No -Bleeding Controlled with Pressure Pressure -Offloading Yes Yes -Treatment Response Procedure Procedure Tolerated Well Tolerated Well #6 POSTERIOR LLE -Time 09:00 08:35 -Correct Patient Yes Yes -Correct Side, Site, Position Yes Yes -Correct Procedure Yes Yes -Procedure Performed Yes Yes -Type of Procedure Debridement Debridement -Clinical Debridement Subcutaneous Subcutaneous -Post Debridement Size (cm) - Length 13.8 13.6 -Post Debridement Size (cm) - Width 1.8 1.4 -Post Debridement Size (cm) - Depth 0.2 0.2 -Total Square Cm 24.84 19.04 -Wound/Ulcer Outcome Not Healed Not Healed -Ulcer Cleansing Rinsed/ Rinsed/ Irrigated with Irrigated with Saline Saline -Foul Odor after Cleansing No -Bioengineered Tissue No -Bleeding Controlled with Pressure Pressure -Offloading Yes Yes -Treatment Response Procedure Procedure Tolerated Well Tolerated Well #5 LATERAL RLE -Time 11:55 08:35 -Correct Patient Yes Yes -Correct Side, Site, Position Yes Yes -Correct Procedure Yes Yes -Procedure Performed Yes Yes -Type of Procedure Debridement Debridement -Clinical Debridement Subcutaneous Subcutaneous -Post Debridement Size (cm) - Length 1.0 0.2 -Post Debridement Size (cm) - Width 0.6 0.2 -Post Debridement Size (cm) - Depth 0.1 0.1 -Total Square Cm 0.60 0.04 -Wound/Ulcer Outcome Not Healed Not Healed -Ulcer Cleansing Rinsed/ Rinsed/ Irrigated with Irrigated with Saline Saline -Foul Odor after Cleansing No -Bioengineered Tissue No -Bleeding Controlled with Pressure Pressure -Offloading Yes Yes -Treatment Response Procedure Procedure Tolerated Well Tolerated Well #4 POSTERIOR RLE -Time 11:55 08:35 -Correct Patient Yes Yes -Correct Side, Site, Position Yes Yes -Correct Procedure Yes Yes -Procedure Performed Yes Yes -Type of Procedure Debridement Debridement -Clinical Debridement Subcutaneous Subcutaneous -Post Debridement Size (cm) - Length 12 12.1 -Post Debridement Size (cm) - Width 3 2.8 -Post Debridement Size (cm) - Depth 0.3 0.4 -Total Square Cm 36 33.88 -Wound/Ulcer Outcome Not Healed Not Healed -Ulcer Cleansing Rinsed/ Irrigated with Saline -Foul Odor after Cleansing No No -Bioengineered Tissue No Yes -Type of bioengineered Tissue EPIFIX -Expiration Date 12/23/23 -Product Lot Number [id number] -Bleeding Controlled with Pressure Pressure -Offloading Yes Yes -Treatment Response Procedure Procedure Tolerated Well Tolerated Well #2 R POLLOCK CLUSTER -Time 11:55 08:36 -Correct Patient Yes Yes -Correct Side, Site, Position Yes Yes -Correct Procedure Yes Yes -Procedure Performed Yes Yes -Type of Procedure Debridement Debridement -Clinical Debridement Subcutaneous Subcutaneous -Post Debridement Size (cm) - Length 19 8.1 -Post Debridement Size (cm) - Width 2.1 1.0 -Post Debridement Size (cm) - Depth 0.1 0.1 -Total Square Cm 39.9 8.10 -Wound/Ulcer Outcome Not Healed Not Healed -Ulcer Cleansing Rinsed/ Rinsed/ Irrigated with Irrigated with Saline Saline -Foul Odor after Cleansing No -Bioengineered Tissue No -Bleeding Controlled with Pressure Pressure -Offloading Yes -Treatment Response Procedure Procedure Tolerated Well Tolerated Well #1 RIGHT GRT TOE/2ND TOE WEB SPACE -Time 11:56 08:36 -Correct Patient Yes Yes -Correct Side, Site, Position Yes Yes -Correct Procedure Yes Yes -Procedure Performed Yes Yes -Type of Procedure Debridement Debridement -Clinical Debridement Subcutaneous Subcutaneous -Post Debridement Size (cm) - Length 0.5 0.7 -Post Debridement Size (cm) - Width 0.4 0.2 -Post Debridement Size (cm) - Depth 0.2 0.2 -Total Square Cm 0.20 0.14 -Wound/Ulcer Outcome Not Healed Not Healed -Ulcer Cleansing Rinsed/ Irrigated with Saline -Foul Odor after Cleansing No No -Bioengineered Tissue No -Bleeding Controlled with Pressure Pressure -Offloading Yes Yes -Treatment Response Procedure Procedure Tolerated Well Tolerated Well Pain Scale: 0-10 Numeric Is Patient Pain Free? Yes Yes Wound debrided: forefoot Laterality: Right Wound Grade/Stage: grade 3 Type of Debridement: Excisional debridement Anesthesia Used: 5% Lidocaine Gel Depth: in the subcutaneous layer Percentage of wound debrided: 100 Instrument Used: #15 blade Tissue Removed: fibrous, devitalized subcutaneous, biofilm, slough Severity: Fat Layer Exposed Amount of bleeding with debridement: Mild Bleeding Controlled with: Pressure Patient tolerated procedure well - Additional Wound Wound debrided: medial foot Laterality: Right Wound Grade/Stage: grade 3 Type of Debridement: Excisional debridement Anesthesia Used: 5% Lidocaine Gel Depth: in the subcutaneous layer Percentage of wound debrided: 100 Instrument Used: #15 blade Tissue Removed: fibrous, devitalized subcutaneous, biofilm, slough Severity: Fat Layer Exposed Amount of bleeding with debridement: Mild Bleeding Controlled with: Pressure Patient tolerated procedure: Patient tolerated procedure well - Additional Wound Wound debrided: medial rearfoot Laterality: Right Wound Grade/Stage: grade 3 Type of Debridement: Excisional debridement Anesthesia Used: 5% Lidocaine Gel Depth: in the subcutaneous layer Percentage of wound debrided: 100 Instrument Used: #15 blade Tissue Removed: fibrous, devitalized subcutaneous, biofilm, slough Severity: Fat Layer Exposed Amount of bleeding with debridement: Mild Bleeding Controlled with: Pressure Patient tolerated procedure: Patient tolerated procedure well - Additional Wound Wound debrided: anterior leg (superior) Laterality: Right Wound Grade/Stage: grade 1 Type of Debridement: Excisional debridement Anesthesia Used: 5% Lidocaine Gel Depth: in the subcutaneous layer Percentage of wound debrided: 100 Instrument Used: #15 blade Tissue Removed: fibrous, devitalized subcutaneous, biofilm, slough Severity: Fat Layer Exposed Amount of bleeding with debridement: Mild Bleeding Controlled with: Pressure Patient tolerated procedure: Patient tolerated procedure well - Additional Wound Wound debrided: anterior leg (inferior) Laterality: Right Wound Grade/Stage: grade 1 Type of Debridement: Excisional debridement Anesthesia Used: 5% Lidocaine Gel Depth: in the subcutaneous layer Percentage of wound debrided: 100 Instrument Used: #15 blade Tissue Removed: fibrous, devitalized subcutaneous, biofilm, slough Severity: Fat Layer Exposed Amount of bleeding with debridement: Mild Bleeding Controlled with: Pressure Patient tolerated procedure: Patient tolerated procedure well - Additional Wound Wound debrided: posterior leg Laterality: Right Wound Grade/Stage: grade 3 Type of Debridement: Excisional debridement Anesthesia Used: 5% Lidocaine Gel Depth: in the subcutaneous layer Percentage of wound debrided: 100 Instrument Used: #15 blade Tissue Removed: fibrous, devitalized subcutaneous, biofilm, slough Severity: Fat Layer Exposed Amount of bleeding with debridement: Mild Bleeding Controlled with: Pressure Patient tolerated procedure: Patient tolerated procedure well - Additional Wound Wound debrided: posterior leg Laterality: Left Wound Grade/Stage: grade 2 Type of Debridement: Excisional debridement Anesthesia Used: 5% Lidocaine Gel Depth: in the subcutaneous layer Percentage of wound debrided: 100 Instrument Used: #15 blade Tissue Removed: fibrous, devitalized subcutaneous, biofilm, slough Severity: Fat Layer Exposed Amount of bleeding with debridement: Mild Bleeding Controlled with: Pressure Patient tolerated procedure: Patient tolerated procedure well Assessment/Plan Active Problems (Last Updated 11/07/18 @ 12:41 by Geraldine Steele) Type 2 diabetes mellitus with foot ulcer (Chronic) Non-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) 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 -open second and third ray resection secondary to osteomyelitis in infection and necrotizing fasciitis (right foot ulcer now with fascia and subcutaneous tissue exposed)--reopened today. -previous bilateral leg fasciotomies and debridements and irrigation performed previously now with right and left leg ulcers with fat and tendon layers exposed. -diabetic neuropathy. -malnutrition suspected. 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 -delayed healing. -gait impairment and fall risk. -other comorbidities Plan: I reviewed and discussed his case today. Subcutaneous excisional debridement was performed today as noted panel to all sites. All sites appears stable without signs of infection and her demonstrating clinical improvement since the operating room procedure. He is amenable to proceed with epi-fix application today. Verbal consent was obtained and this was applied according standard protocol. This was secured in place with a wound veil and Steri- Strips. He tolerated this well. He was advised to keep this clean and intact until follow-up visit next week to the posterior right leg. It is noted the advance product was broken into smaller pieces and placed around the peripheral border to optimize ulcer stimulation. Indication, planned procedure, anticipated healing and management were discussed in detail with the patient. He understands this is a staged application. This is medically necessary for limb salvage. He has demonstrated significant delays in healing under his prior comprehensive wound healing plan. He was reassured no local or systemic signs of illness is suspected today. To change the other ulcer sites dressings daily with Aquacel Ag bilateral. To continue increased protein intake with nutritional supplementation. To continue glycemic control. He had a previous arterial Doppler scheduled with Dr. Morgan's staff on August 02, 2018 and overall perfusion was confirmed; additional intervention or workup was not recommended. It is also noted that he did have venous Doppler performed with reflux evaluation. He did not have evidence of deep venous thrombosis or venous insufficiency at that time; the vessels were compressible. I recommend he sustained from smoking and alcohol activities to optimize healing as well. Prior workup summary: His workup for vasculitis and underlying autoimmune disorder has been completed. A punch biopsy was sent during his last surgical intervention on June 10 and this demonstrated inflammatory changes without malignancy. He had initial screening labs and so far he has a negative RA titer, HL of the 27, KEVIN, anti-CCP, and rheumatoid factor. Several his antibody screenings were not reportable. Hyperbaric oxygen therapy was recommended and it is noted his ejection fraction was most recently 50%. He refuses at this t matias. . I answered his questions. To return to the wound healing center in 1 week. To call sooner if he has any questions or concerns.
[2019-08-16 08:10] VITALS: BP 151/91; PULSE 100; RESP 18; TEMP 35.3; BMI 32.1
--- NOTE | 2019-08-16 18:05 | PN.PCM_ITS ---
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 Current Visit: Yes Code(s): L97.913 - Non-pressure chronic ulcer of unspecified part of right lower leg with necrosis of muscle (3) Ulcer of right lower extremity with fat layer exposed Status: Chronic Current Visit: Yes Code(s): L97.912 - Non-pressure chronic ulcer of unspecified part of right lower leg with fat layer exposed (4) Type 2 diabetes mellitus with diabetic polyneuropathy Status: Chronic Current Visit: Yes Code(s): E11.42 - Type 2 diabetes mellitus with diabetic polyneuropathy (5) Delayed wound healing Status: Chronic Current Visit: Yes Code(s): T14.8XXD - Other injury of unspecified body region, subsequent encounter (6) Ulcer of left lower extremity with fat layer exposed Status: Chronic Current Visit: Yes Code(s): L97.922 - Non-pressure chronic ulcer of unspecified part of left lower leg with fat layer exposed (7) Non-pressure chronic ulcer of other part of right foot with fat layer exposed Status: Chronic Current Visit: Yes Code(s): L97.512 - Non-pressure chronic ulcer of other part of right foot with fat layer exposed Type of Wound Date of Service: 08/16/19 Chief Complaint: right and left Leg ulcers and right foot ulcers History of Wound: Mr. Arguello is a 64-year-old male with multiple comorbidities follows up for delayed healing ulcers to the right foot as well as bilateral l egs. These are chronic and he has had previous remote surgical intervention. He also had operating room debridement performed on June 30, 2019 bilateral lower extremities to all bilateral ulcer sites with additional application of advanced wound healing products including amnio fill and epi-cord to bilateral posterior legs. He denies chills, fever, nausea, or vomiting. He presents today with his . He refuses hyperbaric oxygen therapy treatment. He denies odor or redness. He relates complete resolution of pain. He is ready to proceed with epifix today that was approved. Progress of Wound: improving bilateral - Physical Exam Vital Signs Temp Pulse Resp BP 95.5 F L 100 18 151/91 H 08/16/19 08:10 08/16/19 08:10 08/16/19 08:10 08/16/19 08:10 General: Alert, Oriented x3, Cooperative, No apparent distress Extremities: No cyanosis, Capillary Refill Less than 3 Seconds, No Calf Tenderness - Negative Errol and Lobato bilateral, Diminished Peripheral Pulses, Edema - Mild Skin: Ulcer/ Wound - No purulence, erythema, streaking, odor, infection. The peripheral skin is hairless and atrophic Wound Measurements and Assessment WC - Nurse 1 - General Ulcer Measurement Start: 07/26/19 08:13 Freq: Status: Active Protocol: Activity Type Activity Date Activity User E-Sign Co-Sign Detail Recorded Client Recorded Date Recorded By Document 08/16/19 08:10 JAMAL [id number] 08/16/19 08:27 JAMAL 08/16/19 08:10 Wound Center Nurse 1 [Ulcer Assessment] 13-right superior pollock -Combined with other wound No -Current Size (cm) - Length 0.5 -Current Size (cm) - Width 0.7 -Current Size (cm) - Depth 0.1 -Total Square Cm 0.35 -Photo Taken No -Epithelialization Medium 34-66% -Tunneling No -Undermining/Tunneling No -Circular Undermining No -Exudate Amt Small -Exudate Type Serosanguineous -Wound Margin Flat & Intact -Granulation Amt Medium (34-66%) -Granulation Quality Red -Slough/Fibrin Yes -Necrosis Amt Medium (34-66%) -Necrotic Tissue Type Adherent Slough -Structure Exposed N/A -Texture (Lisa-wound Skin Appearance) Assessed, Scarring -Moisture (Lisa-wound Skin Appearance Assessed,Dry/ ) Scaly -Color (Lisa-wound Skin Appearance) Assessed -Ulcer Cleansing Wound Cleanser -Foul Odor after Cleansing No -Anesthetic Used 4% Lidocaine Solution #11 RIGHT MEDIAL FOOT -Combined with other wound No -Current Size (cm) - Length 2 -Current Size (cm) - Width 1.5 -Current Size (cm) - Depth 0.2 -Total Square Cm 3.0 -Photo Taken No -Epithelialization Small 1-33% -Tunneling No -Undermining/Tunneling No -Circular Undermining No -Exudate Amt Small -Exudate Type Serosanguineous -Wound Margin Flat & Intact -Granulation Amt Large (67-100%) -Slough/Fibrin Yes -Necrosis Amt Medium (34-66%) -Necrotic Tissue Type Adherent Slough -Structure Exposed N/A -Texture (Lisa-wound Skin Appearance) Assessed, Scarring -Moisture (Lisa-wound Skin Appearance Assessed,Dry/ ) Scaly -Color (Lisa-wound Skin Appearance) Assessed -Temperature (Lisa-wound Skin No Abnormality Appearance) (Pt Warm) -Tenderness on Palpation (Lisa-wound No Skin Appearance) -Ulcer Cleansing Rinsed/ Irrigated with Saline -Foul Odor after Cleansing No -Anesthetic Used 4% Lidocaine Solution #6 POSTERIOR LLE -Combined with other wound No -Current Size (cm) - Length 13.6 -Current Size (cm) - Width 6.0 -Current Size (cm) - Depth 0.1 -Total Square Cm 81.60 -Photo Taken No -Epithelialization Small 1-33% -Tunneling No -Undermining/Tunneling No -Circular Undermining No -Exudate Amt Small -Exudate Type Serosanguineous -Wound Margin Flat & Intact -Granulation Amt None Present (0 %) -Slough/Fibrin Yes -Necrosis Amt Large (67-100%) -Necrotic Tissue Type Adherent Slough -Structure Exposed N/A -Texture (Lisa-wound Skin Appearance) Assessed, Scarring -Moisture (Lisa-wound Skin Appearance Assessed,Dry/ ) Scaly -Color (Lisa-wound Skin Appearance) Assessed -Temperature (Lisa-wound Skin No Abnormality Appearance) (Pt Warm) -Tenderness on Palpation (Lisa-wound No Skin Appearance) -Ulcer Cleansing Wound Cleanser -Foul Odor after Cleansing No -Anesthetic Used 4% Lidocaine Solution #4 POSTERIOR RLE -Combined with other wound No -Current Size (cm) - Length 12.5 -Current Size (cm) - Width 2.8 -Current Size (cm) - Depth 0.3 -Total Square Cm 35.00 -Photo Taken No -Epithelialization Small 1-33% -Tunneling No -Undermining/Tunneling No -Circular Undermining No -Exudate Amt Medium -Exudate Type Serosanguineous -Wound Margin Flat & Intact -Granulation Amt None Present (0 %) -Slough/Fibrin Yes -Necrosis Amt Large (67-100%) -Necrotic Tissue Type Adherent Slough -Structure Exposed N/A -Texture (Lisa-wound Skin Appearance) Assessed, Localized Edema ,Scarring -Moisture (Lisa-wound Skin Appearance Assessed,Dry/ ) Scaly -Color (Lisa-wound Skin Appearance) Assessed -Temperature (Lisa-wound Skin No Abnormality Appearance) (Pt Warm) -Tenderness on Palpation (Lisa-wound No Skin Appearance) -Ulcer Cleansing Wound Cleanser -Foul Odor after Cleansing No -Anesthetic Used 4% Lidocaine Solution #2 R POLLOCK CLUSTER -Combined with other wound No -Current Size (cm) - Length 5.6 -Current Size (cm) - Width 0.6 -Current Size (cm) - Depth 0.1 -Total Square Cm 3.36 -Photo Taken No -Epithelialization Large 67-100% -Tunneling No -Undermining/Tunneling No -Circular Undermining No -Exudate Amt None Present -Wound Margin Flat & Intact -Granulation Amt Large (67-100%) -Granulation Quality Red -Slough/Fibrin Yes -Necrosis Amt Small (1-33%) -Necrotic Tissue Type Adherent Slough -Structure Exposed N/A -Texture (Lisa-wound Skin Appearance) Assessed, Scarring -Moisture (Lisa-wound Skin Appearance Assessed,Dry/ ) Scaly -Color (Lisa-wound Skin Appearance) Assessed -Temperature (Lisa-wound Skin No Abnormality Appearance) (Pt Warm) -Tenderness on Palpation (Lisa-wound No Skin Appearance) -Ulcer Cleansing Wound Cleanser -Foul Odor after Cleansing No -Anesthetic Used 4% Lidocaine Solution #1 RIGHT GRT TOE/2ND TOE WEB SPACE -Combined with other wound No -Current Size (cm) - Length 0.5 -Current Size (cm) - Width 0.6 -Current Size (cm) - Depth 0.1 -Total Square Cm 0.30 -Photo Taken No -Epithelialization Small 1-33% -Tunneling No -Undermining/Tunneling No -Circular Undermining No -Exudate Amt Small -Exudate Type Serosanguineous -Wound Margin Flat & Intact -Granulation Amt Medium (34-66%) -Granulation Quality Red -Slough/Fibrin Yes -Necrosis Amt Medium (34-66%) -Necrotic Tissue Type Adherent Slough -Structure Exposed N/A -Texture (Lisa-wound Skin Appearance) Assessed, Scarring -Moisture (Lisa-wound Skin Appearance Assessed,Dry/ ) Scaly -Color (Lisa-wound Skin Appearance) Assessed -Temperature (Lisa-wound Skin No Abnormality Appearance) (Pt Warm) -Tenderness on Palpation (Lisa-wound No Skin Appearance) -Ulcer Cleansing Wound Cleanser -Foul Odor after Cleansing No -Anesthetic Used 4% Lidocaine Solution [Edema Assessment] -Lower Limb Edema Present Yes -Right Calf (cm) 36 -Right Ankle (cm) 22.4 -Left Calf (cm) 35.5 -Left Ankle (cm) 20.3 Musculoskeletal: No Tenderness to Palpation of Joints or Extremities, Muscle Wasting Neurological: - - Lack of normal epicritic sensation light touch is consistent with neuropathy Psych/Mental Status: Normal Affect, Appropriate Debridement Note Post-Debridement Measurements/Treatment WC - Nurse 2 - General Ulcer CM Notes Start: 07/26/19 08:13 Freq: Status: Active Protocol: Activity Type Activity Date Activity User E-Sign Co-Sign Detail Recorded Client Recorded Date Recorded By Document 07/26/19 11:52 AN [id number] 07/26/19 11:57 AN Document 08/02/19 08:33 AN [id number] 08/02/19 08:43 AN Document 08/09/19 15:27 AN [id number] 08/09/19 15:31 AN 07/26/19 08/02/19 08/09/19 11:52 08:33 15:27 Wound Center Nurse 2 13-right superior pollock -Time 08:34 08:30 -Correct Patient Yes Yes -Correct Side, Site, Position Yes Yes -Correct Procedure Yes Yes -Procedure Performed Yes Yes -Type of Procedure Debridement Debridement -Clinical Debridement Subcutaneous Subcutaneous -Post Debridement Size (cm) - Length 1.1 1.1 -Post Debridement Size (cm) - Width 2.0 1.9 -Post Debridement Size (cm) - Depth 0.1 0.1 -Total Square Cm 2.20 2.09 -Wound/Ulcer Outcome Not Healed Not Healed -Ulcer Cleansing Rinsed/ Rinsed/ Irrigated with Irrigated with Saline Saline -Foul Odor after Cleansing No No -Bioengineered Tissue No -Bleeding Controlled with Pressure Pressure -Offloading Yes Yes -Treatment Response Procedure Procedure Tolerated Well Tolerated Well #11 RIGHT MEDIAL FOOT -Time 11:53 08:34 08:30 -Correct Patient Yes Yes Yes -Correct Side, Site, Position Yes Yes Yes -Correct Procedure Yes Yes Yes -Procedure Performed Yes Yes Yes -Type of Procedure Debridement Debridement Debridement -Clinical Debridement Subcutaneous Subcutaneous Subcutaneous -Post Debridement Size (cm) - Length 11.6 12 11.8 -Post Debridement Size (cm) - Width 1.0 0.8 1.7 -Post Debridement Size (cm) - Depth 0.1 0.2 0.2 -Total Square Cm 11.60 9.6 20.06 -Wound/Ulcer Outcome Not Healed Not Healed Not Healed -Ulcer Cleansing Rinsed/ Rinsed/ Rinsed/ Irrigated with Irrigated with Irrigated with Saline Saline Saline -Foul Odor after Cleansing No No -Bioengineered Tissue No No No -Bleeding Controlled with Pressure Pressure Pressure -Offloading Yes Yes Yes -Treatment Response Procedure Procedure Procedure Tolerated Well Tolerated Well Tolerated Well #6 POSTERIOR LLE -Time 09:00 08:35 08:30 -Correct Patient Yes Yes Yes -Correct Side, Site, Position Yes Yes Yes -Correct Procedure Yes Yes Yes -Procedure Performed Yes Yes Yes -Type of Procedure Debridement Debridement Debridement -Clinical Debridement Subcutaneous Subcutaneous Subcutaneous -Post Debridement Size (cm) - Length 13.8 13.6 13.1 -Post Debridement Size (cm) - Width 1.8 1.4 1.7 -Post Debridement Size (cm) - Depth 0.2 0.2 0.1 -Total Square Cm 24.84 19.04 22.27 -Wound/Ulcer Outcome Not Healed Not Healed Not Healed -Ulcer Cleansing Rinsed/ Rinsed/ Rinsed/ Irrigated with Irrigated with Irrigated with Saline Saline Saline -Foul Odor after Cleansing No No -Bioengineered Tissue No No -Bleeding Controlled with Pressure Pressure Pressure -Offloading Yes Yes Yes -Treatment Response Procedure Procedure Procedure Tolerated Well Tolerated Well Tolerated Well #5 LATERAL RLE -Time 11:55 08:35 08:30 -Correct Patient Yes Yes Yes -Correct Side, Site, Position Yes Yes Yes -Correct Procedure Yes Yes Yes -Procedure Performed Yes Yes Yes -Type of Procedure Debridement Debridement Debridement -Clinical Debridement Subcutaneous Subcutaneous Subcutaneous -Post Debridement Size (cm) - Length 1.0 0.2 -Post Debridement Size (cm) - Width 0.6 0.2 -Post Debridement Size (cm) - Depth 0.1 0.1 -Total Square Cm 0.60 0.04 -Wound/Ulcer Outcome Not Healed Not Healed -Ulcer Cleansing Rinsed/ Rinsed/ Irrigated with Irrigated with Saline Saline -Foul Odor after Cleansing No -Bioengineered Tissue No -Bleeding Controlled with Pressure Pressure -Offloading Yes Yes -Treatment Response Procedure Procedure Tolerated Well Tolerated Well #4 POSTERIOR RLE -Time 11:55 08:35 08:30 -Correct Patient Yes Yes Yes -Correct Side, Site, Position Yes Yes Yes -Correct Procedure Yes Yes Yes -Procedure Performed Yes Yes Yes -Type of Procedure Debridement Debridement Debridement -Clinical Debridement Subcutaneous Subcutaneous Subcutaneous -Post Debridement Size (cm) - Length 12 12.1 12.7 -Post Debridement Size (cm) - Width 3 2.8 3.8 -Post Debridement Size (cm) - Depth 0.3 0.4 0.3 -Total Square Cm 36 33.88 48.26 -Wound/Ulcer Outcome Not Healed Not Healed Not Healed -Ulcer Cleansing Rinsed/ Rinsed/ Irrigated with Irrigated with Saline Saline -Foul Odor after Cleansing No No No -Bioengineered Tissue No Yes Yes -Type of bioengineered Tissue EPIFIX EPIFIX -Expiration Date 12/23/23 -Product Lot Number [id number] -Bleeding Controlled with Pressure Pressure Pressure -Offloading Yes Yes Yes -Treatment Response Procedure Procedure Procedure Tolerated Well Tolerated Well Tolerated Well #2 R POLLOCK CLUSTER -Time 11:55 08:36 08:30 -Correct Patient Yes Yes Yes -Correct Side, Site, Position Yes Yes Yes -Correct Procedure Yes Yes Yes -Procedure Performed Yes Yes Yes -Type of Procedure Debridement Debridement Debridement -Clinical Debridement Subcutaneous Subcutaneous Subcutaneous -Post Debridement Size (cm) - Length 19 8.1 8.3 -Post Debridement Size (cm) - Width 2.1 1.0 1.1 -Post Debridement Size (cm) - Depth 0.1 0.1 0.1 -Total Square Cm 39.9 8.10 9.13 -Wound/Ulcer Outcome Not Healed Not Healed Not Healed -Ulcer Cleansing Rinsed/ Rinsed/ Rinsed/ Irrigated with Irrigated with Irrigated with Saline Saline Saline -Foul Odor after Cleansing No No -Bioengineered Tissue No No -Bleeding Controlled with Pressure Pressure Pressure -Offloading Yes Yes -Treatment Response Procedure Procedure Procedure Tolerated Well Tolerated Well Tolerated Well #1 RIGHT GRT TOE/2ND TOE WEB SPACE -Time 11:56 08:36 08:30 -Correct Patient Yes Yes Yes -Correct Side, Site, Position Yes Yes Yes -Correct Procedure Yes Yes Yes -Procedure Performed Yes Yes Yes -Type of Procedure Debridement Debridement Debridement -Clinical Debridement Subcutaneous Subcutaneous Subcutaneous -Post Debridement Size (cm) - Length 0.5 0.7 0.6 -Post Debridement Size (cm) - Width 0.4 0.2 0.5 -Post Debridement Size (cm) - Depth 0.2 0.2 0.1 -Total Square Cm 0.20 0.14 0.30 -Wound/Ulcer Outcome Not Healed Not Healed Not Healed -Ulcer Cleansing Rinsed/ Rinsed/ Irrigated with Irrigated with Saline Saline -Foul Odor after Cleansing No No No -Bioengineered Tissue No No -Bleeding Controlled with Pressure Pressure Pressure -Offloading Yes Yes Yes -Treatment Response Procedure Procedure Procedure Tolerated Well Tolerated Well Tolerated Well Pain Scale: 0-10 Numeric Is Patient Pain Free? Yes Yes Yes Wound debrided: toe region Laterality: Right Wound Grade/Stage: grade 3 Type of Debridement: Excisional debridement Anesthesia Used: 5% Lidocaine Gel Depth: in the subcutaneous layer - Post debridement measurement 0.6 x 0.7 x 0.1 cm Percentage of wound debrided: 100 Instrument Used: #15 blade Tissue Removed: fibrous, devitalized subcutaneous, biofilm, slough Severity: Fat Layer Exposed Amount of bleeding with debridement: Mild Bleeding Controlled with: Pressure Patient tolerated procedure well - Additional Wound Wound debrided: medial foot Laterality: Right Wound Grade/Stage: grade 3 Type of Debridement: Excisional debridement Anesthesia Used: 5% Lidocaine Gel Depth: in the subcutaneous layer - Post debridement measurements 2.1 x 1.6 x 0.2 cm Percentage of wound debrided: 100 Instrument Used: #15 blade Tissue Removed: fibrous, devitalized subcutaneous, biofilm, slough Severity: Fat Layer Exposed Amount of bleeding with debridement: Mild Bleeding Controlled with: Pressure Patient tolerated procedure: Patient tolerated procedure well - Additional Wound Wound debrided: medial hindfoot Laterality: Right - g Wound Grade/Stage: grade 3 Type of Debridement: Excisional debridement Anesthesia Used: 5% Lidocaine Gel Depth: in the subcutaneous layer Percentage of wound debrided: 100 Instrument Used: #15 blade Tissue Removed: fibrous, devitalized subcutaneous, biofilm, slough Severity: Fat Layer Exposed Amount of bleeding with debridement: Mild Bleeding Controlled with: Pressure - Additional Wound Wound debrided: anterior pollock (superior) Laterality: Right Wound Grade/Stage: grade 1 Type of Debridement: Excisional debridement Anesthesia Used: 5% Lidocaine Gel Depth: in the subcutaneous layer - Post debridement measurement 0.6 x 0.8 x 0.1 cm Percentage of wound debrided: 100 Instrument Used: #15 blade Tissue Removed: fibrous, devitalized subcutaneous, biofilm, slough Severity: Fat Layer Exposed Amount of bleeding with debridement: Mild Bleeding Controlled with: Pressure Patient tolerated procedure: Patient tolerated procedure well - Additional Wound Wound debrided: anterior pollock (inferior) Laterality: Right Wound Grade/Stage: grade 1 Type of Debridement: Excisional debridement Anesthesia Used: 5% Lidocaine Gel Depth: in the subcutaneous layer - Post debridement measurement 5.7 x 0.7 x 0.1 cm, approximately 30% of this cluster was debrided Percentage of wound debrided: - - 30 Instrument Used: #15 blade Tissue Removed: fibrous, devitalized subcutaneous, biofilm, slough Severity: Fat Layer Exposed Amount of bleeding with debridement: Mild Bleeding Controlled with: Pressure Patient tolerated procedure: Patient tolerated procedure well - Additional Wound Wound debrided: posterior leg Laterality: Right Wound Grade/Stage: grade 3 Type of Debridement: Excisional debridement Anesthesia Used: 5% Lidocaine Gel Depth: in the subcutaneous layer - Post debridement 12.6 x 2.9 x 0.3 cm Percentage of wound debrided: 100 Instrument Used: #15 blade Tissue Removed: fibrous, devitalized subcutaneous, biofilm, slough Severity: Fat Layer Exposed Amount of bleeding with debridement: Mild Bleeding Controlled with: Pressure Patient tolerated procedure: Patient tolerated procedure well - Additional Wound Wound debrided: posterior leg Laterality: Left Wound Grade/Stage: grade 2 Type of Debridement: Excisional debridement Anesthesia Used: 5% Lidocaine Gel Depth: in the subcutaneous layer - Post debridement measurement 13.7 x 6.1 x 0.1 cm Percentage of wound debrided: 100 Instrument Used: #15 blade Tissue Removed: fibrous, devitalized subcutaneous, biofilm, slough Severity: Fat Layer Exposed Amount of bleeding with debridement: Mild Bleeding Controlled with: Pressure Patient tolerated procedure: Patient tolerated procedure well Assessment/Plan Active Problems (Last Updated 09/28/18 @ 12:41 by Geraldine Steele) Type 2 diabetes mellitus with foot ulcer (Chronic) Non-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) 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 -open second and third ray resection secondary to osteomyelitis in infection and necrotizing fasciitis (right foot ulcer now with fascia and subcutaneous tissue exposed)--reopened today. -previous bilateral leg fasciotomies and debridements and irrigation performed previously now with right and left leg ulcers with fat and tendon layers exposed. -diabetic neuropathy. -malnutrition suspected. 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 -delayed healing. -gait impairment and fall risk. -other comorbidities Plan: I reviewed and discussed his case today. Subcutaneous excisional debridement was performed today as noted panel to all sites. All sites appears stable without signs of infection and her demonstrating clinical improvement since the operating room procedure. He is amenable to proceed with epi-fix application today. Verbal consent was obtained and this was applied according standard protocol. This was secured in place with a wound veil and Steri-Strips to the right foot and lower leg ulcer sites. He tolerated this well. He was advised to keep this clean and intact until follow-up visit next week to the posterior right leg. It is noted the advance product was broken into smaller pieces and placed around the peripheral border to optimize ulcer stimulation. Indication, planned procedure, anticipated healing and management were discussed in detail with the patient. He understands this is a staged application. This is medically necessary for limb salvage. He has demonstrated significant delays in healing under his prior comprehensive wound healing plan. He was reassured no local or systemic signs of illness is suspected today. To change the other ulcer sites dressings daily with [employer] bilateral. To continue increased protein intake with nutritional supplementation. To continue glycemic control. He had a previous arterial Doppler scheduled with Dr. Morgan's staff on August 02, 2018 and overall perfusion was confirmed; additional intervention or workup was not recommended. It is also noted that he did have venous Doppler performed with reflux evaluation. He did not have evidence of deep venous thrombosis or venous insufficiency at that time; the vessels were compressible. I recommend he sustained from smoking and alcohol activities to optimize healing as well. Prior workup summary: His workup for vasculitis and underlying auto immune disorder has been completed. A punch biopsy was sent during his last surgical intervention on June 10 and this demonstrated inflammatory changes without malignancy. He had initial screening labs and so far he has a negative RA titer, HL of the 27, KEVIN, anti-CCP, and rheumatoid factor. Several his antibody screenings were not reportable. Hyperbaric oxygen therapy was recommended and it is noted his ejection fraction was most recently 50%. He refuses at this time. . I answered his questions. To return to the wound healing center in 1 week. To call sooner if he has any questions or concerns.
== END 2019-08-21 23:59 ==
LOC: WC 08:00
PROVIDERS: Family Provider Family Medicine; PCP Family Medicine; Visit Provider Podiatrist
DX: E11.621 Type 2 diabetes mellitus with foot ulcer (principal); E11.622 Type 2 diabetes mellitus with other skin ulcer; E11.42 Type 2 diabetes mellitus with diabetic polyneuropathy; L97.822 Non-pressure chronic ulcer of other part of left lower leg with fat layer exposed; L97.512 Non-pressure chronic ulcer of other part of right foot with fat layer exposed; L97.813 Non-pressure chronic ulcer of other part of right lower leg with necrosis of muscle; L97.412 Non-pressure chronic ulcer of right heel and midfoot with fat layer exposed; L97.812 Non-pressure chronic ulcer of other part of right lower leg with fat layer exposed
CPT/HCPCS: 11042; 11043; 11045; 15271; 15275; 15276; Q4186

== ENCOUNTER 2019-09-20 08:00 | Outpatient (RCR) | payer MEDICARE, SELFPAY ==
[2019-08-22 00:34] VITALS: BP 151/91; PULSE 100; RESP 18; TEMP 35.3
[2019-08-23 13:52] VITALS: BP 115/85; PULSE 92; RESP 18; TEMP 37.1; BMI 32.1
--- NOTE | 2019-08-23 16:44 | PN.PCM_ITS ---
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 Status: Chronic Code(s): L97.913 - Non-pressure chronic ulcer of unspecified part of right lower leg with necrosis of muscle (4) Tobacco dependence due to cigarettes Status: Chronic Code(s): F17.210 - Nicotine dependence, cigarettes, uncompli cated (5) Ulcer of right lower extremity with fat layer exposed Status: Chronic Code(s): L97.912 - Non-pressure chronic ulcer of unspecified part of right lower leg with fat layer exposed (6) Ulcer of left lower extremity with fat layer exposed Status: Chronic Code(s): L97.922 - Non-pressure chronic ulcer of unspecified part of left lower leg with fat layer exposed (7) Type 2 diabetes mellitus with diabetic polyneuropathy Status: Chronic Code(s): E11.42 - Type 2 diabetes mellitus with diabetic polyneuropathy (8) Malnutrition Status: Chronic Code(s): E46 - Unspecified protein-calorie malnutrition Type of Wound Date of Service: 08/23/19 Chief Complaint: right and left Leg ulcers and right foot ulcers History of Wound: Mr. Arguello is a 64-year-old male with multiple comorbidities follows up for delayed healing ulcers to the right foot as well as bilateral legs. These are chronic and he has had previous remote surgical intervention. He also had operating room debridement performed on June 30, 2019 bilateral lower extremities to all bilateral ulcer sites with additional application of advanced wound healing products including amnio fill and epi-cord to bilateral posterior legs. He denies chills, fever, nausea, or vomiting. He presents today with his . He refuses hyperbaric oxygen therapy treatment. He denies odor or redness. He relates complete resolution of pain. He is ready to proceed with epifix today that was approved. Progress of Wound: improving bilateral - Physical Exam Vital Signs Temp Pulse Resp BP 98.7 F 92 18 115/85 H 08/23/19 13:52 08/23/19 13:52 08/23/19 13:52 08/23/19 13:52 General: Alert, Oriented x3, Cooperative, No apparent distress HEENT: Atraumatic Extremities: No cyanosis, Capillary Refill Less than 3 Seconds, No Calf Tenderness - Negative Errol and [place] sign bilateral, Diminished Peripheral Pulses, Edema - Mild bilateral Skin: Ulcer/ Wound - No purulence, erythema, string, odor, infection. Peripheral skin is hairless and atrophic. Wound Measurements and Assessment WC - Nurse 1 - General Ulcer Measurement Start: 08/23/19 13:52 Freq: Status: Active Protocol: Activity Type Activity Date Activity User E-Sign Co-Sign Detail Recorded Client Recorded Date Recorded By Document 08/23/19 13:52 RB [id number] 08/23/19 14:06 RB 08/23/19 13:52 Wound Center Nurse 1 [Ulcer Assessment] #14 R medial ankle -Combined with other wound No -Current Size (cm) - Length 2.7 -Current Size (cm) - Width 0.4 -Current Size (cm) - Depth 0.2 -Total Square Cm 1.08 -Photo Taken Yes -Tunneling No -Undermining/Tunneling No -Circular Undermining No -Exudate Amt Small -Exudate Type Serosanguineous -Wound Margin Flat & Intact -Granulation Amt Medium (34-66%) -Granulation Quality [place] -Slough/Fibrin Yes -Necrosis Amt Small (1-33%) -Necrotic Tissue Type Adherent Slough -Structure Exposed N/A -Texture (Lisa-wound Skin Appearance) Assessed -Moisture (Lisa-wound Skin Appearance Dry/Scaly ) -Color (Lisa-wound Skin Appearance) Assessed -Temperature (Lisa-wound Skin No Abnormality Appearance) (Pt Warm) -Tenderness on Palpation (Lisa-wound No Skin Appearance) -Ulcer Cleansing Wound Cleanser -Foul Odor after Cleansing No -Anesthetic Used 4% Lidocaine Solution 13-right superior tirnidad -Combined with other wound No -Current Size (cm) - Length 0.7 -Current Size (cm) - Width 1 -Current Size (cm) - Depth 0.1 -Total Square Cm 0.7 -Tunneling No -Undermining/Tunneling No -Circular Undermining No -Exudate Amt Small -Exudate Type Serosanguineous -Wound Margin Flat & Intact -Granulation Amt Medium (34-66%) -Granulation Quality [place] -Slough/Fibrin Yes -Necrosis Amt Large (67-100%) -Necrotic Tissue Type Adherent Slough -Structure Exposed N/A -Texture (Lisa-wound Skin Appearance) Assessed -Moisture (Lisa-wound Skin Appearance Dry/Scaly ) -Color (Lisa-wound Skin Appearance) Assessed -Temperature (Lisa-wound Skin No Abnormality Appearance) (Pt Warm) -Tenderness on Palpation (Lisa-wound No Skin Appearance) -Ulcer Cleansing Wound Cleanser -Foul Odor after Cleansing No -Anesthetic Used 4% Lidocaine Solution #11 RIGHT MEDIAL FOOT -Combined with other wound No -Current Size (cm) - Length 1.6 -Current Size (cm) - Width 1.3 -Current Size (cm) - Depth 0.1 -Total Square Cm 2.08 -Tunneling No -Undermining/Tunneling No -Circular Undermining No -Granulation Amt Small (1-33%) -Granulation Quality [place] -Necrotic Tissue Type Adherent Slough -Structure Exposed N/A -Texture (Lisa-wound Skin Appearance) Assessed -Moisture (Lisa-wound Skin Appearance Dry/Scaly ) -Color (Lisa-wound Skin Appearance) Assessed -Temperature (Lisa-wound Skin No Abnormality Appearance) (Pt Warm) -Tenderness on Palpation (Lisa-wound No Skin Appearance) -Ulcer Cleansing Wound Cleanser -Foul Odor after Cleansing No -Anesthetic Used 4% Lidocaine Solution #6 POSTERIOR LLE -Combined with other wound No -Current Size (cm) - Length 12.5 -Current Size (cm) - Width 1.6 -Current Size (cm) - Depth 0.2 -Total Square Cm 20.00 -Tunneling No -Undermining/Tunneling No -Circular Undermining No -Exudate Amt Small -Exudate Type Serosanguineous -Granulation Amt Small (1-33%) -Granulation Quality [place] -Necrosis Amt Large (67-100%) -Necrotic Tissue Type Adherent Slough -Structure Exposed N/A -Texture (Lisa-wound Skin Appearance) Assessed -Moisture (Lisa-wound Skin Appearance Dry/Scaly ) -Color (Lisa-wound Skin Appearance) Assessed -Temperature (Lisa-wound Skin No Abnormality Appearance) (Pt Warm) -Tenderness on Palpation (Lisa-wound No Skin Appearance) -Ulcer Cleansing Wound Cleanser -Foul Odor after Cleansing No -Anesthetic Used 4% Lidocaine Solution #4 POSTERIOR RLE -Combined with other wound No -Current Size (cm) - Length 12.3 -Current Size (cm) - Width 2.5 -Current Size (cm) - Depth 0.3 -Total Square Cm 30.75 -Tunneling No -Undermining/Tunneling No -Circular Undermining No -Exudate Amt Small -Exudate Type Serosanguineous -Wound Margin Flat & Intact -Granulation Amt Large (67-100%) -Granulation Quality [place] -Necrosis Amt Small (1-33%) -Necrotic Tissue Type Adherent Slough -Structure Exposed N/A -Texture (Lisa-wound Skin Appearance) Assessed -Moisture (Lisa-wound Skin Appearance Dry/Scaly ) -Color (Lisa-wound Skin Appearance) Assessed -Temperature (Lisa-wound Skin No Abnormality Appearance) (Pt Warm) -Tenderness on Palpation (Lisa-wound No Skin Appearance) -Ulcer Cleansing Wound Cleanser -Foul Odor after Cleansing No -Anesthetic Used 4% Lidocaine Solution #2 R [place] [employer] -Combined with other wound No -Current Size (cm) - Length 5.3 -Current Size (cm) - Width 0.3 -Current Size (cm) - Depth 0.1 -Total Square Cm 1.59 -Tunneling No -Undermining/Tunneling No -Circular Undermining No -Exudate Amt Small -Exudate Type Serosanguineous -Wound Margin Flat & Intact -Granulation Amt Medium (34-66%) -Granulation Quality [place] -Necrosis Amt Medium (34-66%) -Necrotic Tissue Type Adherent Slough -Structure Exposed N/A -Texture (Lisa-wound Skin Appearance) Assessed -Moisture (Lisa-wound Skin Appearance Assessed,Dry/ ) Scaly -Color (Lisa-wound Skin Appearance) Assessed -Temperature (Lisa-wound Skin No Abnormality Appearance) (Pt Warm) -Tenderness on Palpation (Lisa-wound No Skin Appearance) -Ulcer Cleansing Wound Cleanser -Foul Odor after Cleansing No -Anesthetic Used 4% Lidocaine Solution #1 RIGHT GRT TOE/2ND TOE WEB SPACE -Combined with other wound No -Current Size (cm) - Length 0.3 -Current Size (cm) - Width 0.4 -Current Size (cm) - Depth 0.2 -Total Square Cm 0.12 -Tunneling No -Undermining/Tunneling No -Circular Undermining No -Exudate Amt Small -Exudate Type Serosanguineous -Wound Margin Fibrotic Scar, Thickened Scar -Granulation Amt Medium (34-66%) -Granulation Quality [place] -Slough/Fibrin Yes -Necrosis Amt Medium (34-66%) -Necrotic Tissue Type Adherent Slough -Structure Exposed N/A -Texture (Lisa-wound Skin Appearance) Assessed -Moisture (Lisa-wound Skin Appearance Maceration ) -Color (Lisa-wound Skin Appearance) Assessed -Temperature (Lisa-wound Skin No Abnormality Appearance) (Pt Warm) -Tenderness on Palpation (Lisa-wound No Skin Appearance) -Ulcer Cleansing Wound Cleanser -Foul Odor after Cleansing No -Anesthetic Used 4% Lidocaine Solution [Edema Assessment] -Lower Limb Edema Present Yes -Right Calf (cm) 37 -Right Ankle (cm) 21.6 -Left Calf (cm) 37 -Left Ankle (cm) 21 Musculoskeletal: No Tenderness to Palpation of Joints or Extremities, Muscle Wasting, - - Open right amputation of the right foot Neurological: - - Lack of normal epicritic sensation light touch consistent with neuropathy status Psych/Mental Status: Normal Affect, Appropriate Debridement Note Wound debrided: leg anterior Laterality: Right Wound Grade/Stage: grade 1 Type of Debridement: Excisional debridement Anesthesia Used: 5% Lidocaine Gel Depth: in the subcutaneous layer Percentage of wound debrided: 100 Instrument Used: #15 blade Tissue Removed: fibrous, devitalized subcutaneous, biofilm, slough Severity: Fat Layer Exposed Amount of bleeding with debridement: Mild Bleeding Controlled with: Pressure Patient tolerated procedure well - Additional Wound Wound debrided: medial foot Laterality: Right Wound Grade/Stage: grade 3 Type of Debridement: Excisional debridement Anesthesia Used: 5% Lidocaine Gel Depth: in the subcutaneous layer Percentage of wound debrided: 100 Instrument Used: #15 blade Tissue Removed: fibrous, devitalized subcutaneous, biofilm, slough Severity: Fat Layer Exposed Amount of bleeding with debridement: Mild Bleeding Controlled with: Pressure Patient tolerated procedure: Patient tolerated procedure well - Additional Wound Wound debrided: medial hindfoot Laterality: Right Wound Grade/Stage: grade 3 Type of Debridement: Excisional debridement Anesthesia Used: 5% Lidocaine Gel Depth: in the subcutaneous layer Percentage of wound debrided: 100 Instrument Used: #15 blade Tissue Removed: fibrous, devitalized subcutaneous, biofilm, slough Severity: Fat Layer Exposed Amount of bleeding with debridement: Mild Bleeding Controlled with: Pressure Patient tolerated procedure: Patient tolerated procedure well - Additional Wound Wound debrided: distal forefoot Laterality: Right Wound Grade/Stage: grade 3 Type of Debridement: Excisional debridement Anesthesia Used: 5% Lidocaine Gel Depth: in the subcutaneous layer Percentage of wound debrided: 100 Instrument Used: #15 blade Tissue Removed: fibrous, devitalized subcutaneous, biofilm, slough Severity: Fat Layer Exposed Amount of bleeding with debridement: Mild Bleeding Controlled with: Pressure Patient tolerated procedure: Patient tolerated procedure well - Additional Wound Wound debrided: posterior leg Laterality: Right Wound Grade/Stage: grade 3 Type of Debridement: Excisional debridement Anesthesia Used: 5% Lidocaine Gel Depth: in the subcutaneous layer Percentage of wound debrided: 100 Instrument Used: #15 blade Tissue Removed: fibrous, devitalized subcutaneous, biofilm, slough Severity: Fat Layer Exposed Amount of bleeding with debridement: Mild Bleeding Controlled with: Pressure Patient tolerated procedure: Patient tolerated procedure well - Additional Wound Wound debrided: posterior leg Laterality: Left Wound Grade/Stage: grade 2 Type of Debridement: Excisional debridement Anesthesia Used: 5% Lidocaine Gel Depth: in the subcutaneous layer Percentage of wound debrided: 100 Instrument Used: #15 blade Tissue Removed: fibrous, devitalized subcutaneous, biofilm, slough Severity: Fat Layer Exposed Amount of bleeding with debridement: Mild Bleeding Controlled with: Pressure Patient tolerated procedure: Patient tolerated procedure well Assessment/Plan Assessment: -Now status post operating room excisional subcutaneous and tendon debridements to bilateral legs and right foot with additional application of advanced wound healing products to bilateral posterior lower legs--no infection and stable today. -open second and third ray resection secondary to osteomyelitis in infection and necrotizing fasciitis (right foot ulcer now with fascia and subcutaneous tissue exposed)--reopened today. -previous bilateral leg fasciotomies and debridements and irrigation performed previously now with right and left leg ulcers with fat and tendon layers exposed. -diabetic neuropathy. -malnutrition suspected. 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 -delayed healing. -gait impairment and fall risk. -other comorbidities Plan: I reviewed and discussed his case today. Subcutaneous excisional debridement was performed today as noted panel to all sites. All sites appears stable without signs of infection and her demonstrating clinical improvement since the operating room procedure. He is amenable to proceed with epi-fix application today. Verbal consent was obtained and this was applied according standard protocol. This was secured in place with a wound veil and Steri-Strips to the right foot and lower leg ulcer sites. He tolerated this well. He was advised to keep this clean and intact until follow-up visit next week to the posterior right leg. It is noted the advance product was broken into smaller pieces and placed around the peripheral border to optimize ulcer stimulation. Indication, planned procedure, anticipated healing and management were discussed in detail with the patient. He understands this is a staged application. This is medically necessary for limb salvage. He has demonstrated significant delays in healing under his prior comprehensive wound healing plan. He was reassured no local or systemic signs of illness is suspected today. To change the other ulcer sites dressings daily with Aquacel Ag bilateral. To continue increased protein intake with nutritional supplementation. To continue glycemic control. He had a previous arterial Doppler scheduled with Dr. Morgan's staff on August 02, 2018 and overall perfusion was confirmed; additional intervention or workup was not recommended. It is also noted that he did have venous Doppler performed with reflux evaluation. He did not have evidence of deep venous thrombosis or venous insufficiency at that time; the vessels were compressible. I recommend he sustained from smoking and alcohol activities to optimize healing as well. Prior workup summary: His workup for vasculitis and underlying autoimmune disorder has been completed. A punch biopsy was sent during his last surgical intervention on June 10 and this demonstrated inflammatory changes with out malignancy. He had initial screening labs and so far he has a negative RA titer, HL of the 27, KEVIN, anti-CCP, and rheumatoid factor. Several his antibody screenings were not reportable. Hyperbaric oxygen therapy was recommended and it is noted his ejection fraction was most recently 50%. He refuses at this time. . I answered his questions. To return to the wound healing center in 1 week. To call sooner if he has any questions or concerns.
[2019-08-30 08:19] VITALS: BP 135/74; PULSE 91; RESP 18; TEMP 35.9; BMI 32.1
--- NOTE | 2019-08-30 09:45 | PCM.WC.PN ---
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 Status: Chronic Current Visit: Yes Code(s): L97.913 - Non-pressure chronic ulcer of unspecified part of right lower leg with necrosis of muscle (4) Tobacco dependence due to cigarettes Status: Chronic Current Visit: Yes Code(s): F17.210 - Nicotine dependence, cigarettes, uncomplicated (5) Ulcer of right lower extremity with fat layer exposed Status: Chronic Current Visit: Yes Code(s): L97.912 - Non-pressure chronic ulcer of unspecified part of right lower leg with fat layer exposed (6) Ulcer of left lower extremity with fat layer exposed Status: Chronic Current Visit: Yes Code(s): L97.922 - Non-pressure chronic ulcer of unspecified part of left lower leg with fat layer exposed (7) Type 2 diabetes mellitus with diabetic polyneuropathy Status: Chronic Current Visit: Yes Code(s): E11.42 - Type 2 diabetes mellitus with diabetic polyneuropathy (8) Malnutrition Status: Chronic Current Visit: Yes Code(s): E46 - Unspecified protein-calorie malnutrition Type of Wound Date of Service: 08/30/19 Chief Complaint: right and left Leg ulcers and right foot ulcers History of Wound: Mr. Arguello is a 64-year-old male with multiple comorbidities follows up for delayed healing ulcers to the right foot as well as bilateral legs. These are chronic and he has had previous remote surgical intervention. He also had operating room debridement performed on June 30, 2019 bilateral lower extremities to all bilateral ulcer sites with additional application of advanced wound healing products including amnio fill and epi-cord to bilateral posterior legs. He denies chills, fever, nausea, or vomiting. He presents today with his . He refuses hyperbaric oxygen therapy treatment. He denies odor or redness. He relates complete resolution of pain. He is ready to proceed with epifix today that was approved. Progress of Wound: improving bilateral - Physical Exam Vital Signs Temp Pulse Resp BP 96.6 F L 91 18 135/74 H 08/30/19 08:19 08/30/19 08:19 08/30/19 08:19 08/30/19 08:19 General: Alert, Oriented x3, Cooperative, No apparent distress HEENT: Atraumatic Extremities: No cyanosis, Capillary Refill Less than 3 Seconds, No Calf Tenderness - Negative Errol and Lobato's and bilateral, Diminished Peripheral Pulses, Edema - Mild bilateral lower extremities, Peripheral Pulses Normal Skin: Ulcer/ Wound - No purulence, erythema, string, odor, infection. Reduced tendon exposure to right posterior leg. Peripheral epithelialization is noted the other ulcer sites. The peripheral skin is hairless and atrophic. Wound Measurements and Assessment WC - Nurse 1 - General Ulcer Measurement Start: 08/23/19 13:52 Freq: Status: Active Protocol: Activity Type Activity Date Activity User E-Sign Co-Sign Detail Recorded Client Recorded Date Recorded By Document 08/30/19 08:19 [id number] 08/30/19 08:27 08/30/19 08:19 Wound Center Nurse 1 [Ulcer Assessment] #14 R medial ankle -Combined with other wound No -Current Size (cm) - Length 2 -Current Size (cm) - Width 1.7 -Current Size (cm) - Depth 0.2 -Total Square Cm 3.4 -Tunneling No -Undermining/Tunneling No -Circular Undermining No -Exudate Amt Small -Exudate Type Serosanguineous -Wound Margin Flat & Intact -Granulation Amt Large (67-100%) -Granulation Quality Red -Necrosis Amt Small (1-33%) -Necrotic Tissue Type Adherent Slough -Structure Exposed N/A -Texture (Lisa-wound Skin Appearance) Assessed, Scarring -Moisture (Lisa-wound Skin Appearance Assessed ) -Color (Lisa-wound Skin Appearance) Assessed -Temperature (Lisa-wound Skin No Abnormality Appearance) (Pt Warm) -Tenderness on Palpation (Lisa-wound No Skin Appearance) -Ulcer Cleansing Wound Cleanser -Foul Odor after Cleansing No -Anesthetic Used 4% Lidocaine Solution 13-right superior pollock -Combined with other wound No -Current Size (cm) - Length 0.7 -Current Size (cm) - Width 0.8 -Current Size (cm) - Depth 0.2 -Total Square Cm 0.56 -Tunneling No -Undermining/Tunneling No -Circular Undermining No -Exudate Amt Small -Exudate Type Serosanguineous -Wound Margin Flat & Intact -Granulation Amt Medium (34-66%) -Granulation Quality [place] -Slough/Fibrin Yes -Necrosis Amt Medium (34-66%) -Necrotic Tissue Type Adherent Slough -Structure Exposed N/A -Texture (Lisa-wound Skin Appearance) Assessed, Scarring -Moisture (Lisa-wound Skin Appearance Assessed,Dry/ ) Scaly -Color (Lisa-wound Skin Appearance) Assessed -Temperature (Lisa-wound Skin No Abnormality Appearance) (Pt Warm) -Tenderness on Palpation (Lisa-wound No Skin Appearance) -Ulcer Cleansing Wound Cleanser -Foul Odor after Cleansing No -Anesthetic Used 4% Lidocaine Solution #11 RIGHT MEDIAL FOOT -Combined with other wound No -Current Size (cm) - Length 1.6 -Current Size (cm) - Width 1.3 -Current Size (cm) - Depth 0.2 -Total Square Cm 2.08 -Tunneling No -Undermining/Tunneling No -Circular Undermining No -Exudate Amt Small -Exudate Type Serosanguineous -Wound Margin Flat & Intact -Granulation Amt Large (67-100%) -Granulation Quality Red -Necrosis Amt Small (1-33%) -Necrotic Tissue Type Adherent Slough -Structure Exposed N/A -Texture (Lisa-wound Skin Appearance) Scarring -Moisture (Lisa-wound Skin Appearance Assessed,Dry/ ) Scaly -Color (Lisa-wound Skin Appearance) Assessed -Temperature (Lisa-wound Skin No Abnormality Appearance) (Pt Warm) -Tenderness on Palpation (Lisa-wound No Skin Appearance) -Ulcer Cleansing Wound Cleanser -Foul Odor after Cleansing No -Anesthetic Used 4% Lidocaine Solution #6 POSTERIOR LLE -Combined with other wound No -Current Size (cm) - Length 12.4 -Current Size (cm) - Width 1.4 -Current Size (cm) - Depth 0.3 -Total Square Cm 17.36 -Tunneling No -Undermining/Tunneling No -Circular Undermining No -Exudate Amt Small -Exudate Type Serosanguineous -Granulation Amt Small (1-33%) -Granulation Quality Red -Slough/Fibrin Yes -Necrosis Amt Large (67-100%) -Necrotic Tissue Type Adherent Slough -Structure Exposed N/A -Texture (Lisa-wound Skin Appearance) Scarring -Moisture (Lisa-wound Skin Appearance Assessed,Dry/ ) Scaly -Color (Lisa-wound Skin Appearance) Assessed -Temperature (Lisa-wound Skin No Abnormality Appearance) (Pt Warm) -Tenderness on Palpation (Lisa-wound No Skin Appearance) -Ulcer Cleansing Wound Cleanser -Foul Odor after Cleansing No -Anesthetic Used 4% Lidocaine Solution #4 POSTERIOR RLE -Combined with other wound No -Current Size (cm) - Length 12.4 -Current Size (cm) - Width 2.2 -Current Size (cm) - Depth 0.3 -Total Square Cm 27.28 -Tunneling No -Undermining/Tunneling No -Circular Undermining No -Exudate Amt Small -Exudate Type Serosanguineous -Wound Margin Flat & Intact -Granulation Amt Medium (34-66%) -Granulation Quality [place] -Slough/Fibrin Yes -Necrosis Amt Small (1-33%) -Necrotic Tissue Type Adherent Slough -Structure Exposed N/A -Texture (Lisa-wound Skin Appearance) Assessed, Scarring -Moisture (Lisa-wound Skin Appearance Assessed,Dry/ ) Scaly -Color (Lisa-wound Skin Appearance) Assessed -Temperature (Lisa-wound Skin No Abnormality Appearance) (Pt Warm) -Tenderness on Palpation (Lisa-wound No Skin Appearance) -Ulcer Cleansing Wound Cleanser -Foul Odor after Cleansing No -Anesthetic Used 4% Lidocaine Solution #2 R POLLOCK CLUSTER -Combined with other wound No -Current Size (cm) - Length 0.3 -Current Size (cm) - Width 1.2 -Current Size (cm) - Depth 0.1 -Total Square Cm 0.36 -Tunneling No -Undermining/Tunneling No -Circular Undermining No -Exudate Amt Small -Exudate Type Serosanguineous -Wound Margin Flat & Intact -Granulation Amt Medium (34-66%) -Granulation Quality [place] -Slough/Fibrin Yes -Necrosis Amt Small (1-33%) -Necrotic Tissue Type Adherent Slough -Structure Exposed N/A -Texture (Lisa-wound Skin Appearance) Assessed, Scarring -Moisture (Lisa-wound Skin Appearance Dry/Scaly ) -Color (Lisa-wound Skin Appearance) Assessed -Temperature (Lisa-wound Skin No Abnormality Appearance) (Pt Warm) -Tenderness on Palpation (Lisa-wound No Skin Appearance) -Ulcer Cleansing Wound Cleanser -Foul Odor after Cleansing No -Anesthetic Used 4% Lidocaine Solution #1 RIGHT GRT TOE/2ND TOE WEB SPACE -Combined with other wound No -Current Size (cm) - Length 0.6 -Current Size (cm) - Width 0.3 -Current Size (cm) - Depth 0.1 -Total Square Cm 0.18 -Tunneling No -Undermining/Tunneling No -Circular Undermining No -Exudate Amt Small -Exudate Type Serosanguineous -Wound Margin Flat & Intact -Granulation Amt Medium (34-66%) -Granulation Quality [place] -Slough/Fibrin Yes -Necrosis Amt Large (67-100%) -Necrotic Tissue Type Adherent Slough -Structure Exposed N/A -Texture (Lisa-wound Skin Appearance) Assessed, Scarring -Moisture (Lisa-wound Skin Appearance Assessed,Dry/ ) Scaly -Color (Lisa-wound Skin Appearance) Assessed -Temperature (Lisa-wound Skin No Abnormality Appearance) (Pt Warm) -Tenderness on Palpation (Lisa-wound No Skin Appearance) -Ulcer Cleansing Wound Cleanser -Foul Odor after Cleansing No -Anesthetic Used 4% Lidocaine Solution [Edema Assessment] -Lower Limb Edema Present Yes -Right Calf (cm) 37 -Right Ankle (cm) 21.6 -Left Calf (cm) 36 -Left Ankle (cm) 20.1 Musculoskeletal: No Tenderness to Palpation of Joints or Extremities, Muscle Wasting Neurological: - - Normal epicritic sensation light touch is consistent with neuropathy bilateral lower extremities Psych/Mental Status: Normal Affect, Appropriate Debridement Note Post-Debridement Measurements/Treatment WC - Nurse 2 - General Ulcer CM Notes Start: 08/23/19 13:52 Freq: Status: Active Protocol: Activity Type Activity Date Activity User E-Sign Co-Sign Detail Recorded Client Recorded Date Recorded By Document 08/23/19 18:01 AN [id number] 08/23/19 18:07 AN 08/23/19 18:01 Wound Center Nurse 2 #14 R medial ankle -Time 14:30 -Correct Patient Yes -Correct Side, Site, Position Yes -Correct Procedure Yes -Procedure Performed Yes -Type of Procedure Debridement -Clinical Debridement Subcutaneous -Post Debridement Size (cm) - Length 0.4 -Post Debridement Size (cm) - Width 0.5 -Post Debridement Size (cm) - Depth 0.2 -Total Square Cm 0.20 -Wound/Ulcer Outcome Not Healed -Ulcer Cleansing Rinsed/ Irrigated with Saline -Foul Odor after Cleansing No -Bioengineered Tissue No -Bleeding Controlled with Pressure -Offloading Yes -Treatment Response Procedure Tolerated Well 13-right superior pollock -Time 16:30 -Correct Patient Yes -Correct Side, Site, Position Yes -Correct Procedure Yes -Procedure Performed Yes -Type of Procedure Debridement -Clinical Debridement Subcutaneous -Post Debridement Size (cm) - Length 0.8 -Post Debridement Size (cm) - Width 1.1 -Post Debridement Size (cm) - Depth 0.1 -Total Square Cm 0.88 -Wound/Ulcer Outcome Not Healed -Ulcer Cleansing Rinsed/ Irrigated with Saline -Foul Odor after Cleansing No -Bioengineered Tissue No -Bleeding Controlled with Pressure -Offloading Yes -Treatment Response Procedure Tolerated Well #11 RIGHT MEDIAL FOOT -Time 16:30 -Correct Patient Yes -Correct Side, Site, Position Yes -Correct Procedure Yes -Procedure Performed Yes -Type of Procedure Debridement -Clinical Debridement Subcutaneous -Post Debridement Size (cm) - Length 1.7 -Post Debridement Size (cm) - Width 1.4 -Post Debridement Size (cm) - Depth 0.1 -Total Square Cm 2.38 -Wound/Ulcer Outcome Not Healed -Ulcer Cleansing Rinsed/ Irrigated with Saline -Foul Odor after Cleansing No -Bioengineered Tissue Yes -Type of bioengineered Tissue EPIFIX -Percent Used 50 -Bleeding Controlled with Pressure -Offloading Yes -Treatment Response Procedure Tolerated Well #6 POSTERIOR LLE -Time 16:30 -Correct Patient Yes -Correct Side, Site, Position Yes -Correct Procedure Yes -Procedure Performed Yes -Type of Procedure Debridement -Clinical Debridement Subcutaneous -Post Debridement Size (cm) - Length 12.6 -Post Debridement Size (cm) - Width 1.7 -Post Debridement Size (cm) - Depth 0.2 -Total Square Cm 21.42 -Wound/Ulcer Outcome Not Healed -Ulcer Cleansing Rinsed/ Irrigated with Saline -Foul Odor after Cleansing No -Bioengineered Tissue No -Bleeding Controlled with Pressure -Offloading Yes -Treatment Response Procedure Tolerated Well #4 POSTERIOR RLE -Time 16:30 -Correct Patient Yes -Correct Side, Site, Position Yes -Correct Procedure Yes -Procedure Performed Yes -Type of Procedure Debridement -Clinical Debridement Subcutaneous -Post Debridement Size (cm) - Length 12.4 -Post Debridement Size (cm) - Width 2.6 -Post Debridement Size (cm) - Depth 0.3 -Total Square Cm 32.24 -Wound/Ulcer Outcome Not Healed -Ulcer Cleansing Rinsed/ Irrigated with Saline -Foul Odor after Cleansing No -Bioengineered Tissue Yes -Type of bioengineered Tissue EPIFIX -Percent Used 50 -Bleeding Controlled with Pressure -Offloading Yes -Treatment Response Procedure Tolerated Well #2 R POLLOCK CLUSTER -Time 16:30 -Correct Patient Yes -Correct Side, Site, Position Yes -Correct Procedure Yes -Procedure Performed Yes -Type of Procedure Debridement -Clinical Debridement Subcutaneous -Post Debridement Size (cm) - Length 5.4 -Post Debridement Size (cm) - Width 0.4 -Post Debridement Size (cm) - Depth 0.2 -Total Square Cm 2.16 -Wound/Ulcer Outcome Not Healed -Ulcer Cleansing Rinsed/ Irrigated with Saline -Foul Odor after Cleansing No -Bioengineered Tissue No -Bleeding Controlled with Pressure -Offloading Yes -Treatment Response Procedure Tolerated Well #1 RIGHT GRT TOE/2ND TOE WEB SPACE -Time 18:05 -Correct Patient Yes -Correct Side, Site, Position Yes -Correct Procedure Yes -Procedure Performed Yes -Type of Procedure Debridement -Clinical Debridement Subcutaneous -Post Debridement Size (cm) - Length 0.4 -Post Debridement Size (cm) - Width 0.5 -Post Debridement Size (cm) - Depth 0.2 -Total Square Cm 0.20 -Wound/Ulcer Outcome Amputation -Ulcer Cleansing Rinsed/ Irrigated with Saline -Foul Odor after Cleansing No -Bioengineered Tissue No -Bleeding Controlled with Pressure -Offloading Yes -Treatment Response Procedure Tolerated Well Pain Scale: 0-10 Numeric Is Patient Pain Free? Yes Wound debrided: distal foot Laterality: Right Wound Grade/Stage: grade 3 Type of Debridement: Excisional debridement Anesthesia Used: 5% Lidocaine Gel Depth: in the subcutaneous layer - Pre-debridement 0.6 x 0.3 x 0.1 centimeters and post debridement 0.7 x 0.4 x 0.1 cm Percentage of wound debrided: 100 Instrument Used: #15 blade Tissue Removed: fibrous, devitalized subcutaneous, biofiom, slough Severity: Fat Layer Exposed Amount of bleeding with debridement: Mild Bleeding Controlled with: Pressure Patient tolerated procedure well - Additional Wound Wound debrided: foot distal Laterality: Right - g Wound Grade/Stage: grade 3 Type of Debridement: Excisional debridement Anesthesia Used: 5% Lidocaine Gel Depth: in the subcutaneous layer - Pre-debridement 1.6 x 1.3 x 0.1 cm and post debridement 1.7 x 1.4 x 0.1 cm Percentage of wound debrided: 100 Instrument Used: #15 blade Tissue Removed: fibrous, devitalized subcutaneous, biofiom, slough Severity: Fat Layer Exposed Amount of bleeding with debridement: Mild Bleeding Controlled with: Pressure Patient tolerated procedure: Patient tolerated procedure well - Additional Wound Wound debrided: medial foot (proximal) Laterality: Right Wound Grade/Stage: grade 3 Type of Debridement: Excisional debridement - Pre-debridement 2.0 x 1.7 x 0.1 cm and post debridement 2.1 x 1.8 x 0.1 cm Anesthesia Used: 5% Lidocaine Gel Depth: in the subcutaneous layer Percentage of wound debrided: 100 Instrument Used: #15 blade Tissue Removed: fibrous, devitalized subcutaneous, biofiom, slough Severity: Fat Layer Exposed Amount of bleeding with debridement: Mild Bleeding Controlled with: Pressure Patient tolerated procedure: Patient tolerated procedure well - Additional Wound Wound debrided: Anterior leg Laterality: Right Wound Grade/Stage: grade 1 Type of Debridement: Excisional debridement Anesthesia Used: 5% Lidocaine Gel Depth: in the subcutaneous layer - Pre-debridement 0.3 x 1.2 x 0.1 cm and post debridement 0.4 x 1.3 x 0.1 cm Percentage of wound debrided: 100 Instrument Used: #15 blade Tissue Removed: fibrous, devitalized subcutaneous, biofiom, slough Severity: Fat Layer Exposed Amount of bleeding with debridement: Mild Bleeding Controlled with: Pressure Patient tolerated procedure: Patient tolerated procedure well - Additional Wound Wound debrided: Anterior leg, superior Laterality: Right Wound Grade/Stage: grade 1 Type of Debridement: Excisional debridement Anesthesia Used: 5% Lidocaine Gel Depth: in the subcutaneous layer - Pre-debridement 0.7 x 0.8 x 0.1 cm and post debridement 0.8 x 0.9 x 0.1 cm Percentage of wound debrided: 100 Instrument Used: #15 blade Tissue Removed: fibrous, devitalized subcutaneous, biofiom, slough Severity: Fat Layer Exposed Amount of bleeding with debridement: Mild Bleeding Controlled with: Pressure Patient tolerated procedure: Patient tolerated procedure well - Additional Wound Wound debrided: Posterior leg extends to heel Laterality: Right Wound Grade/Stage: grade 2 Type of Debridement: Excisional debridement Anesthesia Used: 5% Lidocaine Gel Depth: in the subcutaneous layer - Pre-debridement 12.4 x 2.2 x 0.3 cm and post debridement 12.5 x 2.3 x 0.3 cm Percentage of wound debrided: 100 Instrument Used: #15 blade Tissue Removed: fibrous, devitalized subcutaneous, biofilm, slough Severity: Fat Layer Exposed Amount of bleeding with debridement: Mild Bleeding Controlled with: Pressure Patient tolerated procedure: Patient tolerated procedure well - Additional Wound Wound debrided: posterior leg Laterality: Left Wound Grade/Stage: grade 2 Type of Debridement: Excisional debridement Anesthesia Used: 5% Lidocaine Gel Depth: in the subcutaneous layer - Pre-debridement 12.4 x 1.4 x 0.1 cm and post debridement 12.5 x 1.5 x 0.1 cm Percentage of wound debrided: 100 Instrument Used: #15 blade Tissue Removed: fibrous, devitalized subcutaneous, biofilm, slough Severity: Fat Layer Exposed Amount of bleeding with debridement: Mild Bleeding Controlled with: Pressure Patient tolerated procedure: Patient tolerated procedure well Assessment/Plan Active Problems (Last Updated 09/28/18 @ 12:41 by Geraldine Steele) Non-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) Type 2 diabetes mellitus with foot ulcer (Chronic) 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 -open second and third ray resection secondary to osteomyelitis in infection and necrotizing fasciitis (right foot ulcer now with fascia and subcutaneous tissue exposed)--reopened today. -previous bilateral leg fasciotomies and debridements and irrigation performed previously now with right and left leg ulcers with fat and tendon layers exposed. -diabetic neuropathy. -malnutrition suspected. 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 -delayed healing. -gait impairment and fall risk. -other comorbidities Plan: I reviewed and discussed his case today. Subcutaneous excisional debridement was performed today as noted panel to all sites. All sites appears stable without signs of infection and her demonstrating clinical improvement since the operating room procedure. He is amenable to proceed with epi-fix application today. Verbal consent was obtained and this was applied according standard protocol. This was secured in place with a wound veil and Steri-Strips to the right foot and lower leg ulcer sites. He tolerated this well. He was advised to keep this clean and intact until follow-up visit next week to the posterior right leg. It is noted the advance product was broken into smaller pieces and placed around the peripheral border to optimize ulcer stimulation. Indication, planned procedure, anticipated healing and management were discussed in detail with the patient. He understands this is a staged application. This is medically necessary for limb salvage. He has demonstrated significant delays in healing under his prior comprehensive wound healing plan. I recommend considering return to operating room for more aggressive debridement application of amnio fill in larger amounts to further contribute to timely healing. He has been responding well to the advanced wound products in the outpatient setting. He was reassured no local or systemic signs of illness is suspected today. To change the other ulcer sites dressings daily with Aquacel Ag bilateral. To continue increased protein intake with nutritional supplementation. To continue glycemic control. He had a previous arterial Doppler scheduled with Dr. Morgan's staff on August 02, 2018 and overall perfusion was confirmed; additional intervention or workup was not recommended. It is also noted that he did have venous Doppler performed with reflux evaluation. He did not have evidence of deep venous thrombosis or venous insufficiency at that time; the vessels were compressible. I recommend he sustained from smoking and alcohol activities to optimize healing as well. Prior workup summary: His workup for vasculitis and underlying autoimmune disorder has been completed. A punch biopsy was sent during his last surgical intervention on June 10 and this demonstrated inflammatory changes without malignancy. He had initial screening labs and so far he has a negative RA titer, HL of the 27, KEVIN, anti-CCP, and rheumatoid factor. Several his antibody screenings were not reportable. Hyperbaric oxygen therapy was recommended and it is noted his ejection fraction was most recently 50%. He refuses at this time. . I answered his questions. To return to the wound healing center in 1 week. To call sooner if he has any questions or concerns.
[2019-09-06 11:29] VITALS: BP 132/91; PULSE 97; RESP 20; TEMP 36.9; BMI 32.1
--- NOTE | 2019-09-06 12:26 | PN.PCM_ITS ---
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 Status: Chronic Current Visit: Yes Code(s): L97.913 - Non-pressure chronic ulcer of unspecified part of right lower leg with necrosis of muscle (4) Tobacco dependence due to cigarettes Status: Chronic Current Visit: Yes Code(s): F17.210 - Nicotine dependence, cigarettes, uncomplicated (5) Ulcer of right lower extremity with fat layer exposed Status: Chronic Current Visit: Yes Code(s): L97.912 - Non-pressure chronic ulcer of unspecified part of right lower leg with fat layer exposed (6) Ulcer of left lower extremity with fat layer exposed Status: Chronic Current Visit: Yes Code(s): L97.922 - Non-pressure chronic ulcer of unspecified part of left lower leg with fat layer exposed (7) Type 2 diabetes mellitus with diabetic polyneuropathy Status: Chronic Current Visit: Yes Code(s): E11.42 - Type 2 diabetes mellitus with diabetic polyneuropathy (8) Malnutrition Status: Chronic Current Visit: Yes Code(s): E46 - Unspecified protein- calorie malnutrition Type of Wound Date of Service: 09/06/19 Chief Complaint: right and left Leg ulcers and right foot ulcers History of Wound: Mr. Arguello is a 64-year-old male with multiple comorbidities follows up for delayed healing ulcers to the right foot as well as bilateral legs. These are chronic and he has had previous remote surgical intervention. He also had operating room debridement performed on June 30, 2019 bilateral lower extremities to all bilateral ulcer sites with additional application of advanced wound healing products including amnio fill and epi-cord to bilateral posterior legs. He denies chills, fever, nausea, or vomiting. He presents today with his . He refuses hyperbaric oxygen therapy treatment. He denies odor or redness. He relates complete resolution of pain. He is ready to proceed with epifix today that was approved. Progress of Wound: improving bilateral - Physical Exam Vital Signs Temp Pulse Resp BP 98.5 F 97 20 H 132/91 H 09/06/19 11:29 09/06/19 11:29 09/06/19 11:29 09/06/19 11:29 General: Alert, Oriented x3, Cooperative, No apparent distress Extremities: No cyanosis, Capillary Refill Less than 3 Seconds, No Calf Tenderness - Negative Errol and Lobato sign bilateral, Diminished Peripheral Pulses, Edema Skin: Ulcer/ Wound - No purulence, erythema, streaking, odor, or infection to bilateral lower extremities. No tendon exposed at this time or necrosis or maceration bilateral. Adjacent skin is hairless and atrophic bilateral Wound Measurements and Assessment WC - Nurse 1 - General Ulcer Measurement Start: 08/23/19 13:52 Freq: Status: Active Protocol: Activity Type Activity Date Activity User E-Sign Co-Sign Detail Recorded Client Recorded Date Recorded By Document 09/06/19 11:29 DL [id number] 09/06/19 11:43 DL 09/06/19 11:29 Wound Center Nurse 1 [Ulcer Assessment] #14 R medial ankle -Current Size (cm) - Length 2.2 -Current Size (cm) - Width 0.7 -Current Size (cm) - Depth 0.2 -Total Square Cm 1.54 -Photo Taken No -Exudate Amt Small -Exudate Type Serosanguineous -Wound Margin Thickened -Granulation Amt Medium (34-66%) -Granulation Quality Cassandra,Red -Necrosis Amt Medium (34-66%) -Necrotic Tissue Type Adherent Slough -Structure Exposed N/A -Texture (Lisa-wound Skin Appearance) Scarring -Moisture (Lisa-wound Skin Appearance Dry/Scaly ) -Color (Lisa-wound Skin Appearance) Hemosiderin Staining -Temperature (Lisa-wound Skin No Abnormality Appearance) (Pt Warm) -Tenderness on Palpation (Lisa-wound No Skin Appearance) -Ulcer Cleansing Wound Cleanser -Foul Odor after Cleansing No -Anesthetic Used 5% Lidocaine Gel 13-right superior pollock -Current Size (cm) - Length 0.1 -Current Size (cm) - Width 0.1 -Current Size (cm) - Depth 0.1 -Total Square Cm 0.01 -Photo Taken No -Exudate Amt None Present -Wound Margin Flat & Intact -Granulation Amt Large (67-100%) -Granulation Quality Pale,Cassandra -Necrosis Amt None Present (0 %) -Structure Exposed N/A -Texture (Lisa-wound Skin Appearance) Scarring -Moisture (Lisa-wound Skin Appearance Dry/Scaly ) -Color (Lisa-wound Skin Appearance) Hemosiderin Staining -Temperature (Lisa-wound Skin No Abnormality Appearance) (Pt Warm) -Tenderness on Palpation (Lisa-wound No Skin Appearance) -Ulcer Cleansing Wound Cleanser -Foul Odor after Cleansing No #11 RIGHT MEDIAL FOOT -Current Size (cm) - Length 1.8 -Current Size (cm) - Width 1 -Current Size (cm) - Depth 0.1 -Total Square Cm 1.8 -Photo Taken No -Exudate Amt Small -Exudate Type Serosanguineous -Wound Margin Thickened -Granulation Amt Medium (34-66%) -Granulation Quality Cassandra -Necrosis Amt Medium (34-66%) -Necrotic Tissue Type Adherent Slough -Structure Exposed N/A -Texture (Lisa-wound Skin Appearance) Scarring -Moisture (Lisa-wound Skin Appearance Dry/Scaly ) -Color (Lisa-wound Skin Appearance) Hemosiderin Staining -Temperature (Lisa-wound Skin No Abnormality Appearance) (Pt Warm) -Tenderness on Palpation (Lisa-wound No Skin Appearance) -Ulcer Cleansing Wound Cleanser -Foul Odor after Cleansing No -Anesthetic Used 5% Lidocaine Gel #6 POSTERIOR LLE -Current Size (cm) - Length 13 -Current Size (cm) - Width 1.8 -Current Size (cm) - Depth 0.2 -Total Square Cm 23.4 -Photo Taken No -Exudate Amt Small -Exudate Type Serosanguineous -Wound Margin Thickened -Granulation Amt Medium (34-66%) -Granulation Quality Cassandra,Red -Necrosis Amt Medium (34-66%) -Necrotic Tissue Type Adherent Slough -Structure Exposed N/A -Texture (Lisa-wound Skin Appearance) Scarring -Moisture (Lisa-wound Skin Appearance Dry/Scaly ) -Color (Lisa-wound Skin Appearance) Hemosiderin Staining -Temperature (Lisa-wound Skin No Abnormality Appearance) (Pt Warm) -Tenderness on Palpation (Lisa-wound No Skin Appearance) -Ulcer Cleansing Wound Cleanser -Foul Odor after Cleansing No -Anesthetic Used 5% Lidocaine Gel #4 POSTERIOR RLE -Current Size (cm) - Length 12 -Current Size (cm) - Width 3 -Current Size (cm) - Depth 0.2 -Total Square Cm 36 -Photo Taken No -Exudate Amt Small -Exudate Type Serosanguineous -Wound Margin Thickened -Granulation Amt Medium (34-66%) -Granulation Quality Red -Necrosis Amt Medium (34-66%) -Necrotic Tissue Type Adherent Slough -Structure Exposed N/A -Texture (Lisa-wound Skin Appearance) Scarring -Moisture (Lisa-wound Skin Appearance Dry/Scaly ) -Color (Lisa-wound Skin Appearance) Hemosiderin Staining -Temperature (Lisa-wound Skin No Abnormality Appearance) (Pt Warm) -Tenderness on Palpation (Lisa-wound No Skin Appearance) -Ulcer Cleansing Wound Cleanser -Foul Odor after Cleansing No -Anesthetic Used 5% Lidocaine Gel #2 R POLLOCK CLUSTER -Current Size (cm) - Length 0.6 -Current Size (cm) - Width 0.5 -Current Size (cm) - Depth 0.1 -Total Square Cm 0.30 -Photo Taken No -Exudate Amt None Present -Wound Margin Flat & Intact -Granulation Amt Large (67-100%) -Granulation Quality Cassandra -Necrosis Amt None Present (0 %) -Structure Exposed N/A -Texture (Lisa-wound Skin Appearance) Scarring -Moisture (Lisa-wound Skin Appearance Dry/Scaly ) -Color (Lisa-wound Skin Appearance) Hemosiderin Staining -Temperature (Lisa-wound Skin No Abnormality Appearance) (Pt Warm) -Tenderness on Palpation (Lisa-wound No Skin Appearance) -Ulcer Cleansing Wound Cleanser -Foul Odor after Cleansing No -Anesthetic Used 5% Lidocaine Gel #1 RIGHT GRT TOE/2ND TOE WEB SPACE -Current Size (cm) - Length 0.7 -Current Size (cm) - Width 0.5 -Current Size (cm) - Depth 0.1 -Total Square Cm 0.35 -Photo Taken No -Exudate Amt None Present -Wound Margin Thickened -Granulation Amt Small (1-33%) -Granulation Quality Cassandra -Necrosis Amt None Present (0 %) -Structure Exposed N/A -Texture (Lisa-wound Skin Appearance) Scarring -Moisture (Lisa-wound Skin Appearance Dry/Scaly ) -Color (Lisa-wound Skin Appearance) Hemosiderin Staining -Temperature (Lisa-wound Skin No Abnormality Appearance) (Pt Warm) -Tenderness on Palpation (Lisa-wound No Skin Appearance) -Ulcer Cleansing Wound Cleanser -Foul Odor after Cleansing No -Anesthetic Used 5% Lidocaine Gel [Edema Assessment] -Right Calf (cm) 37 -Right Ankle (cm) 21 -Left Calf (cm) 36 -Left Ankle (cm) 20 Musculoskeletal: No Tenderness to Palpation of Joints or Extremities, Muscle Wasting, - - Ray resection right foot Neurological: - - Lack of normal epicritic sensation light touch is consistent with neuropathy status Psych/Mental Status: Normal Affect, Appropriate Debridement Note Post-Debridement Measurements/Treatment WC - Nurse 2 - General Ulcer CM Notes Start: 08/23/19 13:52 Freq: Status: Active Protocol: Activity Type Activity Date Activity User E-Sign Co-Sign Detail Recorded Client Recorded Date Recorded By Document 08/23/19 18:01 AN [id number] 08/23/19 18:07 AN Document 08/30/19 12:22 AN [id number] 08/30/19 12:26 AN 08/23/19 08/30/19 18:01 12:22 Wound Center Nurse 2 #14 R medial ankle -Time 14:30 09:00 -Correct Patient Yes Yes -Correct Side, Site, Position Yes Yes -Correct Procedure Yes Yes -Procedure Performed Yes Yes -Type of Procedure Debridement Debridement -Clinical Debridement Subcutaneous Subcutaneous -Post Debridement Size (cm) - Length 0.4 2.1 -Post Debridement Size (cm) - Width 0.5 1.8 -Post Debridement Size (cm) - Depth 0.2 0.2 -Total Square Cm 0.20 3.78 -Wound/Ulcer Outcome Not Healed Not Healed -Ulcer Cleansing Rinsed/ Irrigated with Saline -Foul Odor after Cleansing No -Bioengineered Tissue No Yes -Type of bioengineered Tissue EPIFIX -Bleeding Controlled with Pressure Pressure -Offloading Yes Yes -Treatment Response Procedure Procedure Tolerated Well Tolerated Well 13-right superior pollock -Time 16:30 09:00 -Correct Patient Yes Yes -Correct Side, Site, Position Yes Yes -Correct Procedure Yes Yes -Procedure Performed Yes Yes -Type of Procedure Debridement Debridement -Clinical Debridement Subcutaneous Subcutaneous -Post Debridement Size (cm) - Length 0.8 0.8 -Post Debridement Size (cm) - Width 1.1 0.9 -Post Debridement Size (cm) - Depth 0.1 0.2 -Total Square Cm 0.88 0.72 -Wound/Ulcer Outcome Not Healed Not Healed -Ulcer Cleansing Rinsed/ Irrigated with Saline -Foul Odor after Cleansing No -Bioengineered Tissue No -Bleeding Controlled with Pressure Pressure -Offloading Yes Yes -Treatment Response Procedure Procedure Tolerated Well Tolerated Well #11 RIGHT MEDIAL FOOT -Time 16:30 09:00 -Correct Patient Yes Yes -Correct Side, Site, Position Yes Yes -Correct Procedure Yes Yes -Procedure Performed Yes Yes -Type of Procedure Debridement Debridement -Clinical Debridement Subcutaneous Subcutaneous -Post Debridement Size (cm) - Length 1.7 1.7 -Post Debridement Size (cm) - Width 1.4 1.4 -Post Debridement Size (cm) - Depth 0.1 0.2 -Total Square Cm 2.38 2.38 -Wound/Ulcer Outcome Not Healed Not Healed -Ulcer Cleansing Rinsed/ Irrigated with Saline -Foul Odor after Cleansing No -Bioengineered Tissue Yes Yes -Type of bioengineered Tissue EPIFIX EPIFIX -Percent Used 50 -Bleeding Controlled with Pressure Pressure -Offloading Yes Yes -Treatment Response Procedure Procedure Tolerated Well Tolerated Well #6 POSTERIOR LLE -Time 16:30 09:00 -Correct Patient Yes Yes -Correct Side, Site, Position Yes Yes -Correct Procedure Yes Yes -Procedure Performed Yes Yes -Type of Procedure Debridement Debridement -Clinical Debridement Subcutaneous Subcutaneous -Post Debridement Size (cm) - Length 12.6 12.5 -Post Debridement Size (cm) - Width 1.7 1.5 -Post Debridement Size (cm) - Depth 0.2 0.3 -Total Square Cm 21.42 18.75 -Wound/Ulcer Outcome Not Healed Not Healed -Ulcer Cleansing Rinsed/ Rinsed/ Irrigated with Irrigated with Saline Saline -Foul Odor after Cleansing No No -Bioengineered Tissue No No -Bleeding Controlled with Pressure Pressure -Offloading Yes Yes -Treatment Response Procedure Procedure Tolerated Well Tolerated Well #4 POSTERIOR RLE -Time 16:30 09:00 -Correct Patient Yes Yes -Correct Side, Site, Position Yes Yes -Correct Procedure Yes Yes -Procedure Performed Yes Yes -Type of Procedure Debridement Debridement -Clinical Debridement Subcutaneous Subcutaneous -Post Debridement Size (cm) - Length 12.4 12.5 -Post Debridement Size (cm) - Width 2.6 2.3 -Post Debridement Size (cm) - Depth 0.3 0.3 -Total Square Cm 32.24 28.75 -Wound/Ulcer Outcome Not Healed Not Healed -Ulcer Cleansing Rinsed/ Rinsed/ Irrigated with Irrigated with Saline Saline -Foul Odor after Cleansing No No -Bioengineered Tissue Yes No -Type of bioengineered Tissue EPIFIX -Percent Used 50 -Bleeding Controlled with Pressure Pressure -Offloading Yes Yes -Treatment Response Procedure Procedure Tolerated Well Tolerated Well #2 R POLLOCK CLUSTER -Time 16:30 09:00 -Correct Patient Yes Yes -Correct Side, Site, Position Yes Yes -Correct Procedure Yes Yes -Procedure Performed Yes Yes -Type of Procedure Debridement Debridement -Clinical Debridement Subcutaneous Subcutaneous -Post Debridement Size (cm) - Length 5.4 0.4 -Post Debridement Size (cm) - Width 0.4 1.3 -Post Debridement Size (cm) - Depth 0.2 0.1 -Total Square Cm 2.16 0.52 -Wound/Ulcer Outcome Not Healed Not Healed -Ulcer Cleansing Rinsed/ Rinsed/ Irrigated with Irrigated with Saline Saline -Foul Odor after Cleansing No No -Bioengineered Tissue No No -Bleeding Controlled with Pressure Pressure -Offloading Yes Yes -Treatment Response Procedure Procedure Tolerated Well Tolerated Well #1 RIGHT GRT TOE/2ND TOE WEB SPACE -Time 18:05 09:00 -Correct Patient Yes Yes -Correct Side, Site, Position Yes Yes -Correct Procedure Yes Yes -Procedure Performed Yes Yes -Type of Procedure Debridement Debridement -Clinical Debridement Subcutaneous Subcutaneous -Post Debridement Size (cm) - Length 0.4 0.7 -Post Debridement Size (cm) - Width 0.5 0.4 -Post Debridement Size (cm) - Depth 0.2 0.1 -Total Square Cm 0.20 0.28 -Wound/Ulcer Outcome Amputation Not Healed -Ulcer Cleansing Rinsed/ Rinsed/ Irrigated with Irrigated with Saline Saline -Foul Odor after Cleansing No No -Bioengineered Tissue No No -Bleeding Controlled with Pressure Pressure -Offloading Yes Yes -Treatment Response Procedure Procedure Tolerated Well Tolerated Well Pain Scale: 0-10 Numeric Is Patient Pain Free? Yes Yes Wound debrided: forefoot Laterality: Right Wound Grade/Stage: grade 3 Type of Debridement: Excisional debridement Anesthesia Used: 5% Lidocaine Gel Depth: in the subcutaneous layer Percentage of wound debrided: 100 Instrument Used: #15 blade Tissue Removed: fibrous, devitalized subcutaneous, biofilm, slough Severity: Fat Layer Exposed Amount of bleeding with debridement: Mild Bleeding Controlled with: Pressure Patient tolerated procedure well - Additional Wound Wound debrided: medial foot Laterality: Right Wound Grade/Stage: grade 3 Type of Debridement: Excisional debridement Anesthesia Used: 5% Lidocaine Gel Depth: in the subcutaneous layer Percentage of wound debrided: 100 Instrument Used: #15 blade Tissue Removed: fibrous, devitalized subcutaneous, biofilm, slough Severity: Fat Layer Exposed Amount of bleeding with debridement: Mild Bleeding Controlled with: Pressure Patient tolerated procedure: Patient tolerated procedure well - Additional Wound Wound debrided: medial foot (proximal) Laterality: Right Wound Grade/Stage: grade 3 Type of Debridement: Excisional debridement Anesthesia Used: 5% Lidocaine Gel Depth: in the subcutaneous layer Percentage of wound debrided: 100 Instrument Used: #15 blade Tissue Removed: fibrous, devitalized subcutaneous, biofilm, slough Severity: Fat Layer Exposed Amount of bleeding with debridement: Mild Bleeding Controlled with: Pressure Patient tolerated procedure: Patient tolerated procedure well - Additional Wound Wound debrided: anterior leg Laterality: Right Wound Grade/Stage: grade 1 Type of Debridement: Excisional debridement Anesthesia Used: 5% Lidocaine Gel Depth: in the subcutaneous layer Percentage of wound debrided: 100 Instrument Used: #15 blade Tissue Removed: fibrous, devitalized subcutaneous, biofilm, slough Severity: Fat Layer Exposed Amount of bleeding with debridement: Mild Bleeding Controlled with: Pressure Patient tolerated procedure: Patient tolerated procedure well - Additional Wound Wound debrided: posterior leg Laterality: Right Wound Grade/Stage: grade 3 Type of Debridement: Excisional debridement Anesthesia Used: 5% Lidocaine Gel Depth: in the subcutaneous layer Percentage of wound debrided: 100 Instrument Used: #15 blade Tissue Removed: fibrous, devitalized subcutaneous, biofilm, slough Severity: Fat Layer Exposed Amount of bleeding with debridement: Mild Bleeding Controlled with: Pressure Patient tolerated procedure: Patient tolerated procedure well - Additional Wound Wound debrided: posterior leg Laterality: Left Wound Grade/Stage: grade 2 Type of Debridement: Excisional debridement Anesthesia Used: 5% Lidocaine Gel Depth: in the subcutaneous layer Percentage of wound debrided: 100 Instrument Used: #15 blade Tissue Removed: fibrous, devitalized subcutaneous, biofilm, slough Severity: Fat Layer Exposed Amount of bleeding with debridement: Mild Bleeding Controlled with: Pressure Patient tolerated procedure: Patient tolerated procedure well Assessment/Plan Active Problems (Last Updated 09/28/18 @ 12:41 by Geraldine Steele) Non-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) Type 2 diabetes mellitus with foot ulcer (Chronic) 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 -open second and third ray resection secondary to osteomyelitis in infection and necrotizing fasciitis (right foot ulcer now with fascia and subcutaneous tissue exposed)--reopened today. -previous bilateral leg fasciotomies and debridements and irrigation performed previously now with right and left leg ulcers with fat and tendon layers exposed. -diabetic neuropathy. -malnutrition suspected. 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 -delayed healing. -gait impairment and fall risk. -other comorbidities Plan: I reviewed and discussed his case today. Subcutaneous excisional debridement was performed today as noted panel to all sites. All sites appears stable without signs of infection and her demonstrating clinical improvement since the operating room procedure. He is amenable to proceed with epi-fix application today. Verbal consent was obtained and this was applied according standard protocol. This was secured in place with a wound veil and Steri-Strips to the right foot ulcer sites. He tolerated this well. He was advised to keep this clean and intact until follow-up visit next week to the posterior right leg. It is noted the advance product was broken into smaller pieces and placed around the peripheral border to optimize ulcer stimulation. Indication, planned procedure, anticipated healing and management were discussed in detail with the patient. He understands this is a staged application. This is medically necessary for limb salvage. He has demonstrated significant delays in healing under his prior comprehensive wound healing plan. I recommend considering return to operating room for more aggressive debridement application of amnio fill in larger amounts to further contribute to timely healing. He has been responding well to the advanced wound products in the outpatient setting. He is amendable to proceed and nurse surgical assistant certified will contact him. He understands preoperative clearance will be needed. The indications, planned procedure, application, anticipated healing time is were discussed. No guarantees were made. He was reassured no local or systemic signs of illness is suspected today. To change the other ulcer sites dressings daily with Aquacel Ag bilateral. To continue increased protein intake with nutritional supplementation. To continue glycemic control. He had a previous arterial Doppler scheduled with Dr. Morgan's staff on August 02, 2018 and overall perfusion was confirmed; additional intervention or workup was not recommended. It is also noted that he did have venous Doppler performed with reflux evaluation. He did not have evidence of deep venous thrombosis or venous insufficiency at that time; the vessels were compressible. I recommend he sustained from smoking and alcohol activities to optimize healing as well. Prior workup summary: His workup for vasculitis and underlying autoimmune disorder has been completed. A punch biopsy was sent during his last surgical intervention on June 10 and this demonstrated inflammatory changes without malignancy. He had initial screening labs and so far he has a negative RA titer, HL of the 27, KEVIN, anti-CCP, and rheumatoid factor. Several his antibody screenings were not reportable. Hyperbaric oxygen therapy was recommended and it is noted his ejection fraction was most recently 50%. He refuses at this time. . I answered his questions. To return to the wound healing center in 1 week. To call sooner if he has any questions or concerns.
[2019-09-13 08:16] VITALS: BP 143/88; PULSE 87; RESP 18; TEMP 35.6; BMI 32.1
--- NOTE | 2019-09-13 10:19 | PN.PCM_ITS ---
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 Status: Chronic Current Visit: Yes Code(s): L97.913 - Non-pressure chronic ulcer of unspecified part of right lower leg with necrosis of muscle (4) Tobacco dependence due to cigarettes Status: Chronic Current Visit: Yes Code(s): F17.210 - Nicotine dependence, cigarettes, uncomplicated (5) Ulcer of right lower extremity with fat layer exposed Status: Chronic Current Visit: Yes Code(s): L97.912 - Non-pressure chronic ulcer of unspecified part of right lower leg with fat layer exposed (6) Ulcer of left lower extremity with fat layer exposed Status: Chronic Current Visit: Yes Code(s): L97.922 - Non-pressure chronic ulcer of unspecified part of left lower leg with fat layer exposed (7) Type 2 diabetes mellitus with diabetic polyneuropathy Status: Chronic Current Visit: Yes Code(s): E11.42 - Type 2 diabetes mellitus with diabetic polyneuropathy (8) Malnutrition Status: Chronic Current Visit: Yes Code(s): E46 - Unspecified protein- calorie malnutrition Type of Wound Date of Service: 09/13/19 Chief Complaint: right and left Leg ulcers and right foot ulcers History of Wound: Mr. Arguello is a 64-year-old male with multiple comorbidities follows up for delayed healing ulcers to the right foot as well as bilateral legs. These are chronic and he has had previous remote surgical intervention. He also had operating room debridement performed on June 30, 2019 bilateral lower extremities to all bilateral ulcer sites with additional application of advanced wound healing products including amnio fill and epi-cord to bilateral posterior legs. He denies chills, fever, nausea, or vomiting. He presents today with his . He refuses hyperbaric oxygen therapy treatment. He denies odor or redness. He relates complete resolution of pain. He is ready to proceed with epifix today that was approved. Progress of Wound: improving bilateral - Physical Exam Vital Signs Temp Pulse Resp BP 96.0 F L 87 18 143/88 H 09/13/19 08:16 09/13/19 08:16 09/13/19 08:16 09/13/19 08:16 General: Alert, Oriented x3, Cooperative, No apparent distress Extremities: No cyanosis, Capillary Refill Less than 3 Seconds, No Calf Tenderness - Negative impression bilateral. Compartment soft to palpate bilateral lower extremities, Diminished Peripheral Pulses, Edema - Mild Skin: Ulcer/ Wound - No purulence, erythema, streaking, odor, infection bilateral. No exposed tendon, necrosis or probe to bone bilateral. This adjacent skin is hairless and atrophic Wound Measurements and Assessment WC - Nurse 1 - General Ulcer Measurement Start: 08/23/19 13:52 Freq: Status: Active Protocol: Activity Type Activity Date Activity User E-Sign Co-Sign Detail Recorded Client Recorded Date Recorded By Document 09/13/19 08:16 MW [id number] 09/13/19 08:35 MW 09/13/19 08:16 Wound Center Nurse 1 [Ulcer Assessment] #14 R medial ankle -Combined with other wound No -Current Size (cm) - Length 3.3 -Current Size (cm) - Width 1.5 -Current Size (cm) - Depth 0.2 -Total Square Cm 4.95 -Tunneling No -Undermining/Tunneling No -Circular Undermining No -Exudate Amt Small -Exudate Type Serosanguineous -Wound Margin Flat & Intact -Granulation Amt Medium (34-66%) -Granulation Quality [place] -Slough/Fibrin Yes -Necrosis Amt Small (1-33%) -Necrotic Tissue Type Adherent Slough -Structure Exposed N/A -Texture (Lisa-wound Skin Appearance) Assessed -Moisture (Lisa-wound Skin Appearance Maceration ) -Color (Lisa-wound Skin Appearance) Assessed -Temperature (Lisa-wound Skin No Abnormality Appearance) (Pt Warm) -Tenderness on Palpation (Lisa-wound No Skin Appearance) -Ulcer Cleansing Wound Cleanser -Foul Odor after Cleansing No -Anesthetic Used 4% Lidocaine Solution #11 RIGHT MEDIAL FOOT -Combined with other wound No -Current Size (cm) - Length 2 -Current Size (cm) - Width 1.5 -Current Size (cm) - Depth 0.1 -Total Square Cm 3.0 -Tunneling No -Undermining/Tunneling No -Circular Undermining No -Exudate Amt Small -Exudate Type Serosanguineous -Wound Margin Flat & Intact -Granulation Amt Medium (34-66%) -Slough/Fibrin Yes -Necrosis Amt Medium (34-66%) -Necrotic Tissue Type Adherent Slough -Structure Exposed N/A -Texture (Lisa-wound Skin Appearance) Assessed -Moisture (Lisa-wound Skin Appearance Assessed, ) Maceration -Color (Lisa-wound Skin Appearance) Assessed -Temperature (Lisa-wound Skin No Abnormality Appearance) (Pt Warm) -Tenderness on Palpation (Lisa-wound No Skin Appearance) -Ulcer Cleansing Wound Cleanser -Foul Odor after Cleansing No -Anesthetic Used 4% Lidocaine Solution #6 POSTERIOR LLE -Combined with other wound No -Current Size (cm) - Length 14.5 -Current Size (cm) - Width 2 -Current Size (cm) - Depth 0.1 -Total Square Cm 29.0 -Tunneling No -Undermining/Tunneling No -Circular Undermining No -Exudate Amt Small -Exudate Type Serosanguineous -Wound Margin Flat & Intact -Granulation Amt Medium (34-66%) -Granulation Quality [place] -Slough/Fibrin Yes -Necrosis Amt Medium (34-66%) -Necrotic Tissue Type Adherent Slough -Structure Exposed N/A -Texture (Lisa-wound Skin Appearance) Scarring -Moisture (Lisa-wound Skin Appearance Assessed ) -Color (Lisa-wound Skin Appearance) Assessed -Temperature (Lisa-wound Skin No Abnormality Appearance) (Pt Warm) -Tenderness on Palpation (Lisa-wound No Skin Appearance) -Ulcer Cleansing Wound Cleanser -Foul Odor after Cleansing No -Anesthetic Used 4% Lidocaine Solution #4 POSTERIOR RLE -Combined with other wound No -Current Size (cm) - Length 12 -Current Size (cm) - Width 3 -Current Size (cm) - Depth 0.2 -Total Square Cm 36 -Tunneling No -Undermining/Tunneling No -Circular Undermining No -Exudate Amt Small -Exudate Type Serosanguineous -Wound Margin Flat & Intact -Granulation Amt Medium (34-66%) -Granulation Quality [place] -Slough/Fibrin Yes -Necrosis Amt Medium (34-66%) -Necrotic Tissue Type Adherent Slough -Structure Exposed N/A -Texture (Lisa-wound Skin Appearance) Assessed -Moisture (Lisa-wound Skin Appearance Maceration ) -Color (Lisa-wound Skin Appearance) Assessed -Temperature (Lisa-wound Skin No Abnormality Appearance) (Pt Warm) -Tenderness on Palpation (Lisa-wound No Skin Appearance) -Ulcer Cleansing Wound Cleanser -Foul Odor after Cleansing No -Anesthetic Used 4% Lidocaine Solution #2 R POLLOCK CLUSTER -Combined with other wound No -Current Size (cm) - Length 8 -Current Size (cm) - Width 1 -Current Size (cm) - Depth 0.1 -Total Square Cm 8 -Tunneling No -Undermining/Tunneling No -Circular Undermining No -Exudate Amt Small -Exudate Type Serosanguineous -Wound Margin Flat & Intact -Granulation Amt Medium (34-66%) -Granulation Quality [place] -Slough/Fibrin Yes -Necrosis Amt Small (1-33%) -Necrotic Tissue Type Adherent Slough -Structure Exposed N/A -Texture (Lisa-wound Skin Appearance) Assessed -Moisture (Lisa-wound Skin Appearance Assessed ) -Color (Lisa-wound Skin Appearance) Assessed -Temperature (Lisa-wound Skin No Abnormality Appearance) (Pt Warm) -Tenderness on Palpation (Lisa-wound No Skin Appearance) -Ulcer Cleansing Wound Cleanser -Foul Odor after Cleansing No -Anesthetic Used 4% Lidocaine Solution #1 RIGHT GRT TOE/2ND TOE WEB SPACE -Combined with other wound No -Current Size (cm) - Length 0.3 -Current Size (cm) - Width 0.2 -Current Size (cm) - Depth 0.1 -Total Square Cm 0.06 -Tunneling No -Undermining/Tunneling No -Circular Undermining No -Exudate Amt Small -Exudate Type Serosanguineous -Wound Margin Flat & Intact -Granulation Amt Medium (34-66%) -Granulation Quality [place] -Slough/Fibrin Yes -Necrosis Amt Medium (34-66%) -Necrotic Tissue Type Adherent Slough -Structure Exposed N/A -Texture (Lisa-wound Skin Appearance) Assessed -Moisture (Lisa-wound Skin Appearance Assessed ) -Temperature (Lisa-wound Skin No Abnormality Appearance) (Pt Warm) -Tenderness on Palpation (Lisa-wound No Skin Appearance) -Ulcer Cleansing Wound Cleanser -Foul Odor after Cleansing No -Anesthetic Used 4% Lidocaine Solution [Edema Assessment] -Lower Limb Edema Present Yes -Right Calf (cm) 36.5 -Right Ankle (cm) 22 -Left Calf (cm) 36.8 -Left Ankle (cm) 20.5 Musculoskeletal: No Tenderness to Palpation of Joints or Extremities, Muscle Wasting, - - Second ray resection right noted Neurological: - - Lack of normal epicritic sensation light touch is consistent with neuropathy status Psych/Mental Status: Normal Affect, Appropriate Debridement Note Post-Debridement Measurements/Treatment WC - Nurse 2 - General Ulcer CM Notes Start: 08/23/19 13:52 Freq: Status: Active Protocol: Activity Type Activity Date Activity User E-Sign Co-Sign Detail Recorded Client Recorded Date Recorded By Document 08/23/19 18:01 AN [id number] 08/23/19 18:07 AN Document 08/30/19 12:22 AN [id number] 08/30/19 12:26 AN Document 09/06/19 13:40 AN [id number] 09/06/19 13:45 AN 08/23/19 08/30/19 09/06/19 18:01 12:22 13:40 Wound Center Nurse 2 #14 R medial ankle -Time 14:30 09:00 13:40 -Correct Patient Yes Yes Yes -Correct Side, Site, Position Yes Yes Yes -Correct Procedure Yes Yes Yes -Procedure Performed Yes Yes Yes -Type of Procedure Debridement Debridement Debridement -Clinical Debridement Subcutaneous Subcutaneous Subcutaneous -Post Debridement Size (cm) - Length 0.4 2.1 2.3 -Post Debridement Size (cm) - Width 0.5 1.8 0.8 -Post Debridement Size (cm) - Depth 0.2 0.2 0.2 -Total Square Cm 0.20 3.78 1.84 -Wound/Ulcer Outcome Not Healed Not Healed Not Healed -Ulcer Cleansing Rinsed/ Rinsed/ Irrigated with Irrigated with Saline Saline -Foul Odor after Cleansing No No -Bioengineered Tissue No Yes Yes -Type of bioengineered Tissue EPIFIX EPIFIX -Percent Used 50 -Bleeding Controlled with Pressure Pressure Pressure -Offloading Yes Yes Yes -Treatment Response Procedure Procedure Procedure Tolerated Well Tolerated Well Tolerated Well 13-right superior pollock -Time 16:30 09:00 -Correct Patient Yes Yes -Correct Side, Site, Position Yes Yes -Correct Procedure Yes Yes -Procedure Performed Yes Yes -Type of Procedure Debridement Debridement -Clinical Debridement Subcutaneous Subcutaneous -Post Debridement Size (cm) - Length 0.8 0.8 -Post Debridement Size (cm) - Width 1.1 0.9 -Post Debridement Size (cm) - Depth 0.1 0.2 -Total Square Cm 0.88 0.72 -Wound/Ulcer Outcome Not Healed Not Healed -Ulcer Cleansing Rinsed/ Irrigated with Saline -Foul Odor after Cleansing No -Bioengineered Tissue No -Bleeding Controlled with Pressure Pressure -Offloading Yes Yes -Treatment Response Procedure Procedure Tolerated Well Tolerated Well #11 RIGHT MEDIAL FOOT -Time 16:30 09:00 13:41 -Correct Patient Yes Yes Yes -Correct Side, Site, Position Yes Yes Yes -Correct Procedure Yes Yes Yes -Procedure Performed Yes Yes Yes -Type of Procedure Debridement Debridement Debridement -Clinical Debridement Subcutaneous Subcutaneous Subcutaneous -Post Debridement Size (cm) - Length 1.7 1.7 1.9 -Post Debridement Size (cm) - Width 1.4 1.4 1.1 -Post Debridement Size (cm) - Depth 0.1 0.2 0.1 -Total Square Cm 2.38 2.38 2.09 -Wound/Ulcer Outcome Not Healed Not Healed Not Healed -Ulcer Cleansing Rinsed/ Rinsed/ Irrigated with Irrigated with Saline Saline -Foul Odor after Cleansing No No -Bioengineered Tissue Yes Yes No -Type of bioengineered Tissue EPIFIX EPIFIX -Percent Used 50 -Bleeding Controlled with Pressure Pressure Pressure -Offloading Yes Yes Yes -Treatment Response Procedure Procedure Procedure Tolerated Well Tolerated Well Tolerated Well #6 POSTERIOR LLE -Time 16:30 09:00 13:42 -Correct Patient Yes Yes Yes -Correct Side, Site, Position Yes Yes Yes -Correct Procedure Yes Yes Yes -Procedure Performed Yes Yes Yes -Type of Procedure Debridement Debridement Debridement -Clinical Debridement Subcutaneous Subcutaneous Subcutaneous -Post Debridement Size (cm) - Length 12.6 12.5 13.1 -Post Debridement Size (cm) - Width 1.7 1.5 1.9 -Post Debridement Size (cm) - Depth 0.2 0.3 0.2 -Total Square Cm 21.42 18.75 24.89 -Wound/Ulcer Outcome Not Healed Not Healed Amputation -Ulcer Cleansing Rinsed/ Rinsed/ Irrigated with Irrigated with Saline Saline -Foul Odor after Cleansing No No -Bioengineered Tissue No No -Bleeding Controlled with Pressure Pressure Pressure -Offloading Yes Yes Yes -Treatment Response Procedure Procedure Procedure Tolerated Well Tolerated Well Tolerated Well #4 POSTERIOR RLE -Time 16:30 09:00 13:42 -Correct Patient Yes Yes Yes -Correct Side, Site, Position Yes Yes Yes -Correct Procedure Yes Yes Yes -Procedure Performed Yes Yes Yes -Type of Procedure Debridement Debridement Debridement -Clinical Debridement Subcutaneous Subcutaneous Subcutaneous -Post Debridement Size (cm) - Length 12.4 12.5 12.1 -Post Debridement Size (cm) - Width 2.6 2.3 3.1 -Post Debridement Size (cm) - Depth 0.3 0.3 0.2 -Total Square Cm 32.24 28.75 37.51 -Wound/Ulcer Outcome Not Healed Not Healed Not Healed -Ulcer Cleansing Rinsed/ Rinsed/ Rinsed/ Irrigated with Irrigated with Irrigated with Saline Saline Saline -Foul Odor after Cleansing No No No -Bioengineered Tissue Yes No Yes -Type of bioengineered Tissue EPIFIX EPIFIX -Percent Used 50 50 -Bleeding Controlled with Pressure Pressure Pressure -Offloading Yes Yes Yes -Treatment Response Procedure Procedure Procedure Tolerated Well Tolerated Well Tolerated Well #2 R POLLOCK CLUSTER -Time 16: 09:00 13:42 -Correct Patient Yes Yes Yes -Correct Side, Site, Position Yes Yes Yes -Correct Procedure Yes Yes Yes -Procedure Performed Yes Yes Yes -Type of Procedure Debridement Debridement Debridement -Clinical Debridement Subcutaneous Subcutaneous Subcutaneous -Post Debridement Size (cm) - Length 5.4 0.4 0.7 -Post Debridement Size (cm) - Width 0.4 1.3 0.6 -Post Debridement Size (cm) - Depth 0.2 0.1 0.1 -Total Square Cm 2.16 0.52 0.42 -Wound/Ulcer Outcome Not Healed Not Healed Not Healed -Ulcer Cleansing Rinsed/ Rinsed/ Rinsed/ Irrigated with Irrigated with Irrigated with Saline Saline Saline -Foul Odor after Cleansing No No No -Bioengineered Tissue No No No -Bleeding Controlled with Pressure Pressure Pressure -Offloading Yes Yes Yes -Treatment Response Procedure Procedure Procedure Tolerated Well Tolerated Well Tolerated Well #1 RIGHT GRT TOE/2ND TOE WEB SPACE -Time 18:05 09:00 13:43 -Correct Patient Yes Yes Yes -Correct Side, Site, Position Yes Yes Yes -Correct Procedure Yes Yes Yes -Procedure Performed Yes Yes Yes -Type of Procedure Debridement Debridement Debridement -Clinical Debridement Subcutaneous Subcutaneous Subcutaneous -Post Debridement Size (cm) - Length 0.4 0.7 0.8 -Post Debridement Size (cm) - Width 0.5 0.4 0.6 -Post Debridement Size (cm) - Depth 0.2 0.1 0.1 -Total Square Cm 0.20 0.28 0.48 -Wound/Ulcer Outcome Amputation Not Healed Not Healed -Ulcer Cleansing Rinsed/ Rinsed/ Rinsed/ Irrigated with Irrigated with Irrigated with Saline Saline Saline -Foul Odor after Cleansing No No No -Bioengineered Tissue No No No -Bleeding Controlled with Pressure Pressure Pressure -Offloading Yes Yes Yes -Treatment Response Procedure Procedure Procedure Tolerated Well Tolerated Well Tolerated Well Pain Scale: 0-10 Numeric Is Patient Pain Free? Yes Yes Yes Wound debrided: forefoot Laterality: Right Wound Grade/Stage: grade 3 Type of Debridement: Excisional debridement Anesthesia Used: 5% Lidocaine Gel Depth: in the subcutaneous layer Percentage of wound debrided: 100 Instrument Used: #15 blade Tissue Removed: fibrous, devitalized subcutaneous, biofilm, slough Severity: Fat Layer Exposed Amount of bleeding with debridement: Mild Bleeding Controlled with: Pressure Patient tolerated procedure well - Additional Wound Wound debrided: medial foot (distal) Laterality: Right Wound Grade/Stage: grade 3 Type of Debridement: Excisional debridement Anesthesia Used: 5% Lidocaine Gel Depth: in the subcutaneous layer Percentage of wound debrided: 100 Instrument Used: #15 blade Tissue Removed: fibrous, devitalized subcutaneous, biofilm, slough Severity: Fat Layer Exposed Amount of bleeding with debridement: Mild Bleeding Controlled with: Pressure, Compression and gauze - Additional Wound Wound debrided: medial foot (proximal) Laterality: Right Wound Grade/Stage: grade 3 Type of Debridement: Excisional debridement Anesthesia Used: 5% Lidocaine Gel Depth: in the subcutaneous layer Percentage of wound debrided: 100 Instrument Used: #15 blade Tissue Removed: fibrous, devitalized subcutaneous, biofilm, slough Severity: Fat Layer Exposed Amount of bleeding with debridement: Mild Bleeding Controlled with: Pressure Patient tolerated procedure: Patient tolerated procedure well - Additional Wound Wound debrided: anterior leg Laterality: Right Wound Grade/Stage: grade 1 Type of Debridement: Excisional debridement Anesthesia Used: 5% Lidocaine Gel Depth: in the subcutaneous layer Percentage of wound debrided: 100 Instrument Used: #15 blade Tissue Removed: fibrous, devitalized subcutaneous, biofilm, slough Severity: Fat Layer Exposed Amount of bleeding with debridement: Mild Bleeding Controlled with: Pressure Patient tolerated procedure: Patient tolerated procedure well - Additional Wound Wound debrided: posterior leg Laterality: Right Wound Grade/Stage: grade 3 Type of Debridement: Excisional debridement Anesthesia Used: 5% Lidocaine Gel Depth: in the subcutaneous layer Percentage of wound debrided: 100 Instrument Used: #15 blade Tissue Removed: fibrous, devitalized subcutaneous, biofilm, slough Severity: Fat Layer Exposed Amount of bleeding with debridement: Mild Bleeding Controlled with: Pressure Patient tolerated procedure: Patient tolerated procedure well - Additional Wound Wound debrided: posterior leg Laterality: Left Wound Grade/Stage: grade 2 Type of Debridement: Excisional debridement Anesthesia Used: 5% Lidocaine Gel Depth: in the subcutaneous layer Percentage of wound debrided: 100 Instrument Used: #15 blade Tissue Removed: fibrous, devitalized subcutaneous, biofilm, slough Severity: Fat Layer Exposed Amount of bleeding with debridement: Mild Bleeding Controlled with: Pressure Patient tolerated procedure: Patient tolerated procedure well Assessment/Plan Active Problems (Last Updated 09/28/18 @ 12:41 by Geraldine Steele) Non-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) Type 2 diabetes mellitus with foot ulcer (Chronic) Type 2 diabetes mellitus with foot ulcer (Chronic) 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 -open second and third ray resection secondary to osteomyelitis in infection and necrotizing fasciitis (right foot ulcer now with fascia and subcutaneous tissue exposed)--reopened today. -previous bilateral leg fasciotomies and debridements and irrigation performed previously now with right and left leg ulcers with fat and tendon layers exposed. -diabetic neuropathy. -malnutrition suspected. 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 -delayed healing. -gait impairment and fall risk. -other comorbidities Plan: I reviewed and discussed his case today. Subcutaneous excisional debridement was performed today as noted panel to all sites. All sites appears stable without signs of infection and her demonstrating clinical improvement since the operating room procedure. He is amenable to proceed with epi-fix application today. Verbal consent was obtained and this was applied according standard protocol. This was secured in place with a wound veil and Steri-Strips to the right foot ulcer sites. He tolerated this well. He was advised to keep this clean and intact until follow-up visit next week to the posterior right leg. It is noted the advance product was broken into smaller pieces and placed around the peripheral border to optimize ulcer stimulation. Indication, planned procedure, anticipated healing and management were discussed in detail with the patient. He understands this is a staged application. This is medically necessary for limb salvage. He has demonstrated significant delays in healing under his prior comprehensive wound healing plan. I recommend considering return to operating room for more aggressive debridement application of amnio fill in larger amounts to further contribute to timely healing. He has been responding well to the advanced wound products in the outpatient setting. He is amendable to proceed and nurse talent coordinator will contact him. He understands preoperative clearance will be needed. The indications, planned procedure, application, anticipated healing time is were discussed. No guarantees were made. He was reassured no local or systemic signs of illness is suspected today. To change the other ulcer sites dressings daily with Aquacel Ag bilateral. To continue increased protein intake with nutritional supplementation. To continue glycemic control. He had a previous arterial Doppler scheduled with Dr. Morgan's staff on August 02, 2018 and overall perfusion was confirmed; additional intervention or workup was not recommended. It is also noted that he did have venous Doppler performed with reflux evaluation. He did not have evidence of deep venous thrombosis or venous insufficiency at that time; the vessels were compressible. I recommend he sustained from smoking and alcohol activities to optimize healing as well. Prior workup summary: His workup for vasculitis and underlying autoimmune disorder has been completed. A punch biopsy was sent during his last surgical intervention on June 10 and this demonstrated inflammatory changes without malignancy. He had initial screening labs and so far he has a negative RA titer, HL of the 27, KEVIN, anti-CCP, and rheumatoid factor. Several his antibody screenings were not reportable. Hyperbaric oxygen therapy was recommended and it is noted his ejection fraction was most recently 50%. He refuses at this time. . I answered his questions. To return to the wound healing center in 1 week. To call sooner if he has any questions or concerns.
[2019-09-20 08:09] VITALS: BP 135/92; PULSE 90; RESP 18; TEMP 36; BMI 32.1
--- NOTE | 2019-09-20 09:00 | PN.PCM_ITS ---
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 Status: Chronic Code(s): L97.913 - Non-pressure chronic ulcer of unspecified part of right lower leg with necrosis of muscle (4) Tobacco dependence due to cigarettes Status: Chronic Code(s): F17.210 - Nicotine dependence, cigarettes, uncompli cated (5) Ulcer of right lower extremity with fat layer exposed Status: Chronic Code(s): L97.912 - Non-pressure chronic ulcer of unspecified part of right lower leg with fat layer exposed (6) Ulcer of left lower extremity with fat layer exposed Status: Chronic Code(s): L97.922 - Non-pressure chronic ulcer of unspecified part of left lower leg with fat layer exposed (7) Type 2 diabetes mellitus with diabetic polyneuropathy Status: Chronic Code(s): E11.42 - Type 2 diabetes mellitus with diabetic polyneuropathy (8) Malnutrition Status: Chronic Code(s): E46 - Unspecified protein-calorie malnutrition Type of Wound Date of Service: 09/20/19 Chief Complaint: right and left Leg ulcers and right foot ulcers History of Wound: Mr. Arguello is a 64-year-old male with multiple comorbidities follows up for delayed healing ulcers to the right foot as well as bilateral legs. These are chronic and he has had previous remote surgical intervention. He also had operating room debridement performed on June 30, 2019 bilateral lower extremities to all bilateral ulcer sites with additional application of advanced wound healing products including amnio fill and epi-cord to bilateral posterior legs. He denies chills, fever, nausea, or vomiting. He presents today with his . He refuses hyperbaric oxygen therapy treatment. He denies odor or redness. He relates complete resolution of pain. He is ready to proceed with epifix today that was approved. Progress of Wound: improving bilateral - Physical Exam Vital Signs Temp Pulse Resp BP 96.8 F L 90 18 135/92 H 09/20/19 08:09 09/20/19 08:09 09/20/19 08:09 09/20/19 08:09 General: Alert, Oriented x3, Cooperative, No apparent distress Extremities: No cyanosis, No edema, Capillary Refill Less than 3 Seconds, No Calf Tenderness - neg winter bilateral, Diminished Peripheral Pulses Skin: Ulcer/ Wound - No purulence encountered, no erythema, no streaking, no deep tissue exposure necrosis. Peripheral skin is atrophic and hairless Wound Measurements and Assessment WC - Nurse 1 - General Ulcer Measurement Start: 08/23/19 13:52 Freq: Status: Active Protocol: Activity Type Activity Date Activity User E-Sign Co-Sign Detail Recorded Client Recorded Date Recorded By Document 09/20/19 08:09 MW [id number] 09/20/19 08:24 MW 09/20/19 08:09 Wound Center Nurse 1 [Ulcer Assessment] #14 R medial ankle -Combined with other wound No -Current Size (cm) - Length 1.3 -Current Size (cm) - Width 0.8 -Current Size (cm) - Depth 0.2 -Total Square Cm 1.04 -Photo Taken No -Epithelialization None Present -Tunneling No -Undermining/Tunneling No -Circular Undermining No -Exudate Amt Small -Exudate Type Serosanguineous -Wound Margin Flat & Intact -Granulation Amt None Present (0 %) -Granulation Quality N/A -Slough/Fibrin Yes -Necrosis Amt Large (67-100%) -Necrotic Tissue Type Adherent Slough -Structure Exposed N/A -Texture (Lisa-wound Skin Appearance) Assessed, Localized Edema ,Scarring -Moisture (Lisa-wound Skin Appearance Assessed,Dry/ ) Scaly -Color (Lisa-wound Skin Appearance) No Abnormality, Assessed -Temperature (Lisa-wound Skin No Abnormality Appearance) (Pt Warm) -Tenderness on Palpation (Lisa-wound No Skin Appearance) -Ulcer Cleansing soap and water -Foul Odor after Cleansing No -Anesthetic Used 4% Lidocaine Solution #11 RIGHT MEDIAL FOOT -Combined with other wound No -Current Size (cm) - Length 1.6 -Current Size (cm) - Width 0.9 -Current Size (cm) - Depth 0.1 -Total Square Cm 1.44 -Photo Taken No -Epithelialization Small 1-33% -Tunneling No -Undermining/Tunneling No -Circular Undermining No -Exudate Amt Small -Exudate Type Serosanguineous -Wound Margin Flat & Intact -Granulation Amt Small (1-33%) -Granulation Quality Red -Necrosis Amt Large (67-100%) -Necrotic Tissue Type Adherent Slough -Structure Exposed N/A -Texture (Lisa-wound Skin Appearance) Assessed, Localized Edema ,Scarring -Moisture (Lisa-wound Skin Appearance Assessed,Dry/ ) Scaly -Color (Lisa-wound Skin Appearance) No Abnormality, Assessed -Temperature (Lisa-wound Skin No Abnormality Appearance) (Pt Warm) -Tenderness on Palpation (Lisa-wound No Skin Appearance) -Ulcer Cleansing soap and water -Foul Odor after Cleansing No -Anesthetic Used 4% Lidocaine Solution #6 POSTERIOR LLE -Combined with other wound No -Current Size (cm) - Length 11.4 -Current Size (cm) - Width 1.9 -Current Size (cm) - Depth 0.4 -Total Square Cm 21.66 -Photo Taken No -Epithelialization None Present -Tunneling No -Undermining/Tunneling No -Circular Undermining No -Exudate Amt Small -Exudate Type Serosanguineous -Wound Margin Flat & Intact -Granulation Amt Small (1-33%) -Granulation Quality Red -Slough/Fibrin Yes -Necrosis Amt Large (67-100%) -Necrotic Tissue Type Adherent Slough -Structure Exposed N/A -Texture (Lisa-wound Skin Appearance) Assessed, Localized Edema ,Scarring -Moisture (Lisa-wound Skin Appearance Assessed,Dry/ ) Scaly -Color (Lisa-wound Skin Appearance) No Abnormality, Assessed -Temperature (Lisa-wound Skin No Abnormality Appearance) (Pt Warm) -Tenderness on Palpation (Lisa-wound No Skin Appearance) -Ulcer Cleansing soap and water -Foul Odor after Cleansing No -Anesthetic Used 4% Lidocaine Solution #4 POSTERIOR RLE -Combined with other wound No -Current Size (cm) - Length 12.4 -Current Size (cm) - Width 2.5 -Current Size (cm) - Depth 0.3 -Total Square Cm 31.00 -Photo Taken No -Epithelialization Small 1-33% -Tunneling No -Undermining/Tunneling No -Circular Undermining No -Exudate Amt Small -Exudate Type Serosanguineous -Wound Margin Flat & Intact -Granulation Amt Large (67-100%) -Granulation Quality Red -Slough/Fibrin Yes -Necrosis Amt Medium (34-66%) -Necrotic Tissue Type Adherent Slough -Structure Exposed N/A -Texture (Lisa-wound Skin Appearance) Assessed, Localized Edema ,Scarring -Moisture (Lisa-wound Skin Appearance Assessed,Dry/ ) Scaly -Color (Lisa-wound Skin Appearance) No Abnormality, Assessed -Temperature (Lisa-wound Skin No Abnormality Appearance) (Pt Warm) -Tenderness on Palpation (Lisa-wound No Skin Appearance) -Ulcer Cleansing soap and water -Foul Odor after Cleansing No -Anesthetic Used 4% Lidocaine Solution #2 R TRINIDAD CLUSTER -Combined with other wound No -Current Size (cm) - Length 0.2 -Current Size (cm) - Width 0.4 -Current Size (cm) - Depth 0.1 -Total Square Cm 0.08 -Photo Taken No -Epithelialization None Present -Tunneling No -Undermining/Tunneling No -Circular Undermining No -Exudate Amt Small -Exudate Type Serosanguineous -Wound Margin Flat & Intact -Granulation Amt Large (67-100%) -Granulation Quality Red -Slough/Fibrin No -Necrosis Amt None Present (0 %) -Structure Exposed N/A -Texture (Lisa-wound Skin Appearance) Assessed, Localized Edema ,Scarring -Moisture (Lias-wound Skin Appearance Assessed,Dry/ ) Scaly -Color (Lisa-wound Skin Appearance) No Abnormality, Assessed -Temperature (Lisa-wound Skin No Abnormality Appearance) (Pt Warm) -Tenderness on Palpation (Lisa-wound No Skin Appearance) -Ulcer Cleansing soap and water -Foul Odor after Cleansing No -Anesthetic Used 4% Lidocaine Solution #1 RIGHT GRT TOE/2ND TOE WEB SPACE -Combined with other wound No -Current Size (cm) - Length 0.4 -Current Size (cm) - Width 0.2 -Current Size (cm) - Depth 0.3 -Total Square Cm 0.08 -Photo Taken No -Epithelialization None Present -Tunneling No -Undermining/Tunneling No -Circular Undermining No -Exudate Amt Small -Exudate Type Serosanguineous -Wound Margin Flat & Intact -Granulation Amt Medium (34-66%) -Granulation Quality Red -Slough/Fibrin Yes -Necrosis Amt Medium (34-66%) -Necrotic Tissue Type Adherent Slough -Structure Exposed N/A -Texture (Lisa-wound Skin Appearance) Assessed, Localized Edema ,Scarring -Moisture (Lisa-wound Skin Appearance Assessed,Dry/ ) Scaly -Color (Lisa-wound Skin Appearance) No Abnormality, Assessed -Temperature (Lisa-wound Skin No Abnormality Appearance) (Pt Warm) -Tenderness on Palpation (Lisa-wound No Skin Appearance) -Ulcer Cleansing soap and water -Foul Odor after Cleansing No -Anesthetic Used 4% Lidocaine Solution [Edema Assessment] -Lower Limb Edema Present Yes -Right Calf (cm) 36.7 -Right Ankle (cm) 22.2 -Left Calf (cm) 35.7 -Left Ankle (cm) 20.3 Musculoskeletal: No Tenderness to Palpation of Joints or Extremities, Muscle Wasting, - Neurological: - - Lack of normal epicritic sensation light touch consistent with neuropathy status Psych/Mental Status: Normal Affect, Appropriate Debridement Note Post-Debridement Measurements/Treatment WC - Nurse 2 - General Ulcer CM Notes Start: 08/23/19 13:52 Freq: Status: Active Protocol: Activity Type Activity Date Activity User E-Sign Co-Sign Detail Recorded Client Recorded Date Recorded By Document 08/23/19 18:01 AN [id number] 08/23/19 18:07 AN Document 08/30/19 12:22 AN [id number] 08/30/19 12:26 AN Document 09/06/19 13:40 AN [id number] 09/06/19 13:45 AN Document 09/13/19 18:27 AN [id number] 09/13/19 18:32 AN 08/23/19 08/30/19 09/06/19 18:01 12:22 13:40 Wound Center Nurse 2 #14 R medial ankle -Time 14:30 09:00 13:40 -Correct Patient Yes Yes Yes -Correct Side, Site, Position Yes Yes Yes -Correct Procedure Yes Yes Yes -Procedure Performed Yes Yes Yes -Type of Procedure Debridement Debridement Debridement -Clinical Debridement Subcutaneous Subcutaneous Subcutaneous -Post Debridement Size (cm) - Length 0.4 2.1 2.3 -Post Debridement Size (cm) - Width 0.5 1.8 0.8 -Post Debridement Size (cm) - Depth 0.2 0.2 0.2 -Total Square Cm 0.20 3.78 1.84 -Wound/Ulcer Outcome Not Healed Not Healed Not Healed -Ulcer Cleansing Rinsed/ Rinsed/ Irrigated with Irrigated with Saline Saline -Foul Odor after Cleansing No No -Bioengineered Tissue No Yes Yes -Type of bioengineered Tissue EPIFIX EPIFIX -Percent Used 50 -Bleeding Controlled with Pressure Pressure Pressure -Offloading Yes Yes Yes -Treatment Response Procedure Procedure Procedure Tolerated Well Tolerated Well Tolerated Well 13-right superior [place] -Time 16:30 09:00 -Correct Patient Yes Yes -Correct Side, Site, Position Yes Yes -Correct Procedure Yes Yes -Procedure Performed Yes Yes -Type of Procedure Debridement Debridement -Clinical Debridement Subcutaneous Subcutaneous -Post Debridement Size (cm) - Length 0.8 0.8 -Post Debridement Size (cm) - Width 1.1 0.9 -Post Debridement Size (cm) - Depth 0.1 0.2 -Total Square Cm 0.88 0.72 -Wound/Ulcer Outcome Not Healed Not Healed -Ulcer Cleansing Rinsed/ Irrigated with Saline -Foul Odor after Cleansing No -Bioengineered Tissue No -Bleeding Controlled with Pressure Pressure -Offloading Yes Yes -Treatment Response Procedure Procedure Tolerated Well Tolerated Well #11 RIGHT MEDIAL FOOT -Time 16: 09:00 13:41 -Correct Patient Yes Yes Yes -Correct Side, Site, Position Yes Yes Yes -Correct Procedure Yes Yes Yes -Procedure Performed Yes Yes Yes -Type of Procedure Debridement Debridement Debridement -Clinical Debridement Subcutaneous Subcutaneous Subcutaneous -Post Debridement Size (cm) - Length 1.7 1.7 1.9 -Post Debridement Size (cm) - Width 1.4 1.4 1.1 -Post Debridement Size (cm) - Depth 0.1 0.2 0.1 -Total Square Cm 2.38 2.38 2.09 -Wound/Ulcer Outcome Not Healed Not Healed Not Healed -Ulcer Cleansing Rinsed/ Rinsed/ Irrigated with Irrigated with Saline Saline -Foul Odor after Cleansing No No -Bioengineered Tissue Yes Yes No -Type of bioengineered Tissue EPIFIX EPIFIX -Percent Used 50 -Bleeding Controlled with Pressure Pressure Pressure -Offloading Yes Yes Yes -Treatment Response Procedure Procedure Procedure Tolerated Well Tolerated Well Tolerated Well #6 POSTERIOR LLE -Time 16:30 09:00 13:42 -Correct Patient Yes Yes Yes -Correct Side, Site, Position Yes Yes Yes -Correct Procedure Yes Yes Yes -Procedure Performed Yes Yes Yes -Type of Procedure Debridement Debridement Debridement -Clinical Debridement Subcutaneous Subcutaneous Subcutaneous -Post Debridement Size (cm) - Length 12.6 12.5 13.1 -Post Debridement Size (cm) - Width 1.7 1.5 1.9 -Post Debridement Size (cm) - Depth 0.2 0.3 0.2 -Total Square Cm 21.42 18.75 24.89 -Wound/Ulcer Outcome Not Healed Not Healed Amputation -Ulcer Cleansing Rinsed/ Rinsed/ Irrigated with Irrigated with Saline Saline -Foul Odor after Cleansing No No -Bioengineered Tissue No No -Bleeding Controlled with Pressure Pressure Pressure -Offloading Yes Yes Yes -Treatment Response Procedure Procedure Procedure Tolerated Well Tolerated Well Tolerated Well #4 POSTERIOR RLE -Time 16:30 09:00 13:42 -Correct Patient Yes Yes Yes -Correct Side, Site, Position Yes Yes Yes -Correct Procedure Yes Yes Yes -Procedure Performed Yes Yes Yes -Type of Procedure Debridement Debridement Debridement -Clinical Debridement Subcutaneous Subcutaneous Subcutaneous -Post Debridement Size (cm) - Length 12.4 12.5 12.1 -Post Debridement Size (cm) - Width 2.6 2.3 3.1 -Post Debridement Size (cm) - Depth 0.3 0.3 0.2 -Total Square Cm 32.24 28.75 37.51 -Wound/Ulcer Outcome Not Healed Not Healed Not Healed -Ulcer Cleansing Rinsed/ Rinsed/ Rinsed/ Irrigated with Irrigated with Irrigated with Saline Saline Saline -Foul Odor after Cleansing No No No -Bioengineered Tissue Yes No Yes -Type of bioengineered Tissue EPIFIX EPIFIX -Percent Used 50 50 -Bleeding Controlled with Pressure Pressure Pressure -Offloading Yes Yes Yes -Treatment Response Procedure Procedure Procedure Tolerated Well Tolerated Well Tolerated Well #2 R TRINIDAD CLUSTER -Time 16:30 09:00 13:42 -Correct Patient Yes Yes Yes -Correct Side, Site, Position Yes Yes Yes -Correct Procedure Yes Yes Yes -Procedure Performed Yes Yes Yes -Type of Procedure Debridement Debridement Debridement -Clinical Debridement Subcutaneous Subcutaneous Subcutaneous -Post Debridement Size (cm) - Length 5.4 0.4 0.7 -Post Debridement Size (cm) - Width 0.4 1.3 0.6 -Post Debridement Size (cm) - Depth 0.2 0.1 0.1 -Total Square Cm 2.16 0.52 0.42 -Wound/Ulcer Outcome Not Healed Not Healed Not Healed -Ulcer Cleansing Rinsed/ Rinsed/ Rinsed/ Irrigated with Irrigated with Irrigated with Saline Saline Saline -Foul Odor after Cleansing No No No -Bioengineered Tissue No No No -Bleeding Controlled with Pressure Pressure Pressure -Offloading Yes Yes Yes -Treatment Response Procedure Procedure Procedure Tolerated Well Tolerated Well Tolerated Well #1 RIGHT GRT TOE/2ND TOE WEB SPACE -Time 18:05 09:00 13:43 -Correct Patient Yes Yes Yes -Correct Side, Site, Position Yes Yes Yes -Correct Procedure Yes Yes Yes -Procedure Performed Yes Yes Yes -Type of Procedure Debridement Debridement Debridement -Clinical Debridement Subcutaneous Subcutaneous Subcutaneous -Post Debridement Size (cm) - Length 0.4 0.7 0.8 -Post Debridement Size (cm) - Width 0.5 0.4 0.6 -Post Debridement Size (cm) - Depth 0.2 0.1 0.1 -Total Square Cm 0.20 0.28 0.48 -Wound/Ulcer Outcome Amputation Not Healed Not Healed -Ulcer Cleansing Rinsed/ Rinsed/ Rinsed/ Irrigated with Irrigated with Irrigated with Saline Saline Saline -Foul Odor after Cleansing No No No -Bioengineered Tissue No No No -Bleeding Controlled with Pressure Pressure Pressure -Offloading Yes Yes Yes -Treatment Response Procedure Procedure Procedure Tolerated Well Tolerated Well Tolerated Well Pain Scale: 0-10 Numeric Is Patient Pain Free? Yes Yes Yes 09/13/19 18:27 Wound Center Nurse 2 #14 R medial ankle -Time 08:30 -Correct Patient Yes -Correct Side, Site, Position Yes -Correct Procedure Yes -Procedure Performed Yes -Type of Procedure Debridement -Clinical Debridement Subcutaneous -Post Debridement Size (cm) - Length 3.4 -Post Debridement Size (cm) - Width 1.6 -Post Debridement Size (cm) - Depth 0.2 -Total Square Cm 5.44 -Wound/Ulcer Outcome Not Healed -Ulcer Cleansing Rinsed/ Irrigated with Saline -Foul Odor after Cleansing No -Bioengineered Tissue Yes -Type of bioengineered Tissue EPIFIX -Percent Used 50 -Bleeding Controlled with Pressure -Offloading No -Treatment Response Procedure Tolerated Well 13-right superior [place] -Time -Correct Patient -Correct Side, Site, Position -Correct Procedure -Procedure Performed -Type of Procedure -Clinical Debridement -Post Debridement Size (cm) - Length -Post Debridement Size (cm) - Width -Post Debridement Size (cm) - Depth -Total Square Cm -Wound/Ulcer Outcome -Ulcer Cleansing -Foul Odor after Cleansing -Bioengineered Tissue -Bleeding Controlled with -Offloading -Treatment Response #11 RIGHT MEDIAL FOOT -Time 08:30 -Correct Patient Yes -Correct Side, Site, Position Yes -Correct Procedure Yes -Procedure Performed Yes -Type of Procedure Debridement -Clinical Debridement Subcutaneous -Post Debridement Size (cm) - Length 2.1 -Post Debridement Size (cm) - Width 1.6 -Post Debridement Size (cm) - Depth 0.1 -Total Square Cm 3.36 -Wound/Ulcer Outcome Not Healed -Ulcer Cleansing Rinsed/ Irrigated with Saline -Foul Odor after Cleansing No -Bioengineered Tissue No -Type of bioengineered Tissue -Percent Used -Bleeding Controlled with Pressure -Offloading Yes -Treatment Response Procedure Tolerated Well #6 POSTERIOR LLE -Time 08:30 -Correct Patient Yes -Correct Side, Site, Position Yes -Correct Procedure Yes -Procedure Performed Yes -Type of Procedure Debridement -Clinical Debridement Subcutaneous -Post Debridement Size (cm) - Length 14.6 -Post Debridement Size (cm) - Width 2.1 -Post Debridement Size (cm) - Depth 0.1 -Total Square Cm 30.66 -Wound/Ulcer Outcome Not Healed -Ulcer Cleansing Rinsed/ Irrigated with Saline -Foul Odor after Cleansing No -Bioengineered Tissue No -Bleeding Controlled with Pressure -Offloading No -Treatment Response Procedure Tolerated Well #4 POSTERIOR RLE -Time 08:30 -Correct Patient Yes -Correct Side, Site, Position Yes -Correct Procedure Yes -Procedure Performed Yes -Type of Procedure Debridement -Clinical Debridement Subcutaneous -Post Debridement Size (cm) - Length 12.1 -Post Debridement Size (cm) - Width 3.1 -Post Debridement Size (cm) - Depth 0.2 -Total Square Cm 37.51 -Wound/Ulcer Outcome Not Healed -Ulcer Cleansing Rinsed/ Irrigated with Saline -Foul Odor after Cleansing No -Bioengineered Tissue No -Type of bioengineered Tissue -Percent Used -Bleeding Controlled with Pressure -Offloading No -Treatment Response Procedure Tolerated Well #2 R TRINIDAD CLUSTER -Time 08:30 -Correct Patient Yes -Correct Side, Site, Position Yes -Correct Procedure Yes -Procedure Performed Yes -Type of Procedure Debridement -Clinical Debridement Subcutaneous -Post Debridement Size (cm) - Length 8.1 -Post Debridement Size (cm) - Width 1.1 -Post Debridement Size (cm) - Depth 0.1 -Total Square Cm 8.91 -Wound/Ulcer Outcome Not Healed -Ulcer Cleansing Rinsed/ Irrigated with Saline -Foul Odor after Cleansing -Bioengineered Tissue -Bleeding Controlled with Pressure -Offloading No -Treatment Response Procedure Tolerated Well #1 RIGHT GRT TOE/2ND TOE WEB SPACE -Time 08:30 -Correct Patient Yes -Correct Side, Site, Position Yes -Correct Procedure Yes -Procedure Performed Yes -Type of Procedure Debridement -Clinical Debridement Subcutaneous -Post Debridement Size (cm) - Length 0.4 -Post Debridement Size (cm) - Width 0.3 -Post Debridement Size (cm) - Depth 0.1 -Total Square Cm 0.12 -Wound/Ulcer Outcome Not Healed -Ulcer Cleansing Rinsed/ Irrigated with Saline -Foul Odor after Cleansing No -Bioengineered Tissue No -Bleeding Controlled with Pressure -Offloading No -Treatment Response Procedure Tolerated Well Pain Scale: 0-10 Numeric Is Patient Pain Free? Yes Wound debrided: forefoot Laterality: Right Wound Grade/Stage: grade 3 Type of Debridement: Excisional debridement Anesthesia Used: 5% Lidocaine Gel Depth: in the subcutaneous layer Percentage of wound debrided: 100 Instrument Used: #15 blade Tissue Removed: fibrous, devitalized subcutaneous, biofilm, slough Severity: Fat Layer Exposed Amount of bleeding with debridement: Mild Bleeding Controlled with: Pressure Patient tolerated procedure well - Additional Wound Wound debrided: medial plantar midfoot Laterality: Right Wound Grade/Stage: grade 3 Type of Debridement: Excisional debridement Anesthesia Used: 5% Lidocaine Gel Depth: in the subcutaneous layer Percentage of wound debrided: 100 Instrument Used: #15 blade Tissue Removed: fibrous, devitalized subcutaneous, biofilm, slough Severity: Fat Layer Exposed Amount of bleeding with debridement: Mild Bleeding Controlled with: Pressure Patient tolerated procedure: Patient tolerated procedure well - Additional Wound Wound debrided: medial rearfoot Laterality: Right Wound Grade/Stage: grade 3 Type of Debridement: Excisional debridement Anesthesia Used: 5% Lidocaine Gel Depth: in the subcutaneous layer Percentage of wound debrided: 100 Instrument Used: #15 blade Tissue Removed: fibrous, devitalized subcutaneous, biofilm, slough Severity: Fat Layer Exposed Amount of bleeding with debridement: Mild Bleeding Controlled with: Pressure Patient tolerated procedure: Patient tolerated procedure well - Additional Wound Wound debrided: posterior heel and leg Laterality: Right Wound Grade/Stage: grade 3 Type of Debridement: Excisional debridement Depth: in the subcutaneous layer Percentage of wound debrided: 100 Instrument Used: #15 blade Tissue Removed: fibrous, devitalized subcutaneous, biofilm, slough Severity: Fat Layer Exposed Amount of bleeding with debridement: Mild Bleeding Controlled with: Pressure Patient tolerated procedure: Patient tolerated procedure well - Additional Wound Wound debrided: posterior leg Laterality: Left Wound Grade/Stage: grade 2 Type of Debridement: Excisional debridement Anesthesia Used: 5% Lidocaine Gel Depth: in the subcutaneous layer Percentage of wound debrided: 100 Instrument Used: #15 blade Tissue Removed: fibrous, devitalized subcutaneous, biofilm, slough Severity: Fat Layer Exposed Amount of bleeding with debridement: Mild Bleeding Controlled with: Pressure Patient tolerated procedure: Patient tolerated procedure well Assessment/Plan Assessment: -Now status post operating room excisional subcutaneous and tendon debridements to bilateral legs and right foot with additional application of advanced wound healing products to bilateral posterior lower legs--no infection and stable today. -open second and third ray resection secondary to osteomyelitis in infection and necrotizing fasciitis (right foot ulcer now with fascia and subcutaneous tissue exposed)--reopened today. -previous bilateral leg fasciotomies and debridements and irrigation performed previously now with right and left leg ulcers with fat and tendon layers exposed. -diabetic neuropathy. -malnutrition suspected. 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 -delayed healing. -gait impairment and fall risk. -other comorbidities Plan: I reviewed and discussed his case today. Subcutaneous excisional debridement was performed today as noted panel to all sites. All sites appears stable without signs of infection and her demonstrating clinical improvement since the operating room procedure. He is amenable to proceed with epi-fix application today. Verbal consent was obtained and this was applied according standard protocol. This was secured in place with a wound veil and Steri-Strips to the right foot ulcer sites. He tolerated this well. He was advised to keep this clean and intact until follow-up visit next week to the posterior right leg. It is noted the advance product was broken into smaller pieces and placed around the peripheral border to optimize ulcer stimulation. Indication, planned procedure, anticipated healing and management were discussed in detail with the patient. He understands this is a staged application. This is medically necessary for limb salvage. He has demonstrated significant delays in healing under his prior comprehensive wound healing plan. I recommend considering return to operating room for more aggressive debridement application of amnio fill in larger amounts to further contribute to timely healing. He has been responding well to the advanced wound products in the outpatient setting. He is amendable to proceed with this recommended procedure after he goes for routine checkup middle to end of September with his primary care provider. He understands preoperative clearance will be needed. The indications, planned procedure, application, anticipated healing time is were discussed. No guarantees were made. He was reassured no local or systemic signs of illness is suspected today. To change the other ulcer sites dressings daily with Aquacel Ag bilateral. To continue increased protein intake with nutritional supplementation. To continue glycemic control. He had a previous arterial Doppler scheduled with Dr. Morgan's staff on August 02, 2018 and overall perfusion was confirmed; additional intervention or workup was not recommended. It is also noted that he did have venous Doppler performed with reflux evaluation. He did not have evidence of deep venous thrombosis or venous insufficiency at that time; the vessels were compressible. I recommend he sustained from smoking and alcohol activities to optimize healing as well. Prior workup summary: His workup for vasculitis and underlying autoimmune disorder has been completed. A punch biopsy was sent during his last surgical intervention on June 10 and this demonstrated inflammatory changes without malignancy. He had initial screening labs and so far he has a negative RA titer, HL of the 27, KEVIN, anti-CCP, and rheumatoid factor. Several his antibody screenings were not reportable. Hyperbaric oxygen therapy was recommended and it is noted his ejection fraction was most recently 50%. He refuses at this time. . I answered his questions. To return to the wound healing center in 1 week. To call sooner if he has any questions or concerns.
== END 2019-09-21 23:59 ==
LOC: WC 08:00
PROVIDERS: Family Provider Family Medicine; PCP Family Medicine; Visit Provider Podiatrist
DX: E11.621 Type 2 diabetes mellitus with foot ulcer (principal); E11.622 Type 2 diabetes mellitus with other skin ulcer; F17.210 Nicotine dependence, cigarettes, uncomplicated; E11.42 Type 2 diabetes mellitus with diabetic polyneuropathy; L97.512 Non-pressure chronic ulcer of other part of right foot with fat layer exposed; L97.412 Non-pressure chronic ulcer of right heel and midfoot with fat layer exposed; L97.812 Non-pressure chronic ulcer of other part of right lower leg with fat layer exposed; L97.822 Non-pressure chronic ulcer of other part of left lower leg with fat layer exposed
CPT/HCPCS: 11042; 11045; 15271; 15275; Q4186

== ENCOUNTER 2019-10-04 08:00 | Outpatient (RCR) | payer MEDICARE, SELFPAY ==
[2019-09-22 00:36] VITALS: BP 135/92; PULSE 90; RESP 18; TEMP 36
[2019-09-27 08:04] VITALS: BP 122/86; PULSE 107; RESP 18; TEMP 35.3; BMI 32.1
--- NOTE | 2019-09-27 09:24 | PCM.WC.PN ---
(1) Type 2 diabetes mellitus with foot ulcer Status: Chronic Current Visit: Yes Code(s): E11.621 - Type 2 diabetes mellitus with foot ulcer; L97.509 - Non-pressure chronic ulcer of other part of unspecified foot with unspecified severity (2) Type 2 diabetes mellitus with foot ulcer Status: Chronic Current Visit: Yes Code(s): E11.621 - Type 2 diabetes mellitus with foot ulcer; L97.509 - Non-pressure chronic ulcer of other part of unspecified foot with unspecified severity (3) Non-pressure chronic ulcer of other part of right foot with fat layer exposed Status: Chronic Current Visit: Yes Code(s): L97.512 - Non-pressure chronic ulcer of other part of right foot with fat layer exposed (4) 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 Status: Chronic Current Visit: Yes Code(s): L97.913 - Non-pressure chronic ulcer of unspecified part of right lower leg with necrosis of muscle (5) Ulcer of right lower extremity with fat layer exposed Status: Chronic Current Visit: Yes Code(s): L97.912 - Non-pressure chronic ulcer of unspecified part of right lower leg with fat layer exposed (6) Type 2 diabetes mellitus with diabetic polyneuropathy Status: Chronic Current Visit: Yes Code(s): E11.42 - Type 2 diabetes mellitus with diabetic polyneuropathy (7) Delayed wound healing Status: Chronic Current Visit: Yes Code(s): T14.8XXD - Other injury of unspecified body region, subsequent encounter (8) Tobacco dependence due to cigarettes Status: Chronic Current Visit: Yes Code(s): F17.210 - Nicotine dependence, cigarettes, uncomplicated (9) Ulcer of left lower extremity with fat layer exposed Status: Chronic Current Visit: Yes Code(s): L97.922 - Non-pressure chronic ulcer of unspecified part of left lower leg with fat layer exposed (10) Malnutrition Status: Chronic Current Visit: Yes Code(s): E46 - Unspecified protein-calorie malnutrition Type of Wound Date of Service: 09/27/19 Chief Complaint: right and left Leg ulcers and right foot ulcers History of Wound: Mr. Arguello is a 64-year-old male with multiple comorbidities follows up for delayed healing ulcers to the right foot as well as bilateral legs. These are chronic and he has had previous remote surgical intervention. He also had operating room debridement performed on June 30, 2019 bilateral lower extremities to all bilateral ulcer sites with additional application of advanced wound healing products including amnio fill and epi-cord to bilateral posterior legs. He denies chills, fever, nausea, or vomiting. He presents today with his . He refuses hyperbaric oxygen therapy treatment. He denies odor or redness. He relates complete resolution of pain. He is ready to proceed with epifix today that was approved. Progress of Wound: improving bilateral - Physical Exam Vital Signs Temp Pulse Resp BP 95.5 F L 107 H 18 122/86 H 09/27/19 08:04 09/27/19 08:04 09/27/19 08:04 09/27/19 08:04 General: Alert, Oriented x3, Cooperative, No apparent distress Extremities: No cyanosis, Capillary Refill Less than 3 Seconds, No Calf Tenderness, Diminished Peripheral Pulses, Edema - Mild Skin: Ulcer/ Wound - No purulence, erythema, streaking, odor, infection. His peripheral skin is hairless and atrophic. Wound Measurements and Assessment WC - Nurse 1 - General Ulcer Measurement Start: 09/27/19 08:03 Freq: Status: Active Protocol: Activity Type Activity Date Activity User E-Sign Co-Sign Detail Recorded Client Recorded Date Recorded By Document 09/27/19 08:04 MW [id number] 09/27/19 08:19 MW 09/27/19 08:04 Wound Center Nurse 1 [Ulcer Assessment] #14 R medial ankle -Combined with other wound No -Current Size (cm) - Length 3.0 -Current Size (cm) - Width 0.8 -Current Size (cm) - Depth 0.2 -Total Square Cm 2.40 -Photo Taken No -Epithelialization Small 1-33% -Tunneling No -Undermining/Tunneling No -Circular Undermining No -Exudate Amt Small -Exudate Type Serosanguineous -Wound Margin Flat & Intact -Granulation Amt Medium (34-66%) -Granulation Quality [place] -Slough/Fibrin Yes -Necrosis Amt Medium (34-66%) -Necrotic Tissue Type Adherent Slough -Structure Exposed N/A -Texture (Lisa-wound Skin Appearance) Assessed, Scarring -Moisture (Lisa-wound Skin Appearance Assessed,Dry/ ) Scaly -Color (Lisa-wound Skin Appearance) No Abnormality, Hemosiderin Staining -Temperature (Lisa-wound Skin No Abnormality Appearance) (Pt Warm) -Tenderness on Palpation (Lisa-wound No Skin Appearance) -Ulcer Cleansing soap and water -Foul Odor after Cleansing No -Anesthetic Used 4% Lidocaine Solution #11 RIGHT MEDIAL FOOT -Combined with other wound No -Current Size (cm) - Length 1.8 -Current Size (cm) - Width 1.0 -Current Size (cm) - Depth 0.3 -Total Square Cm 1.80 -Photo Taken No -Epithelialization Small 1-33% -Tunneling No -Undermining/Tunneling No -Circular Undermining No -Exudate Amt Small -Exudate Type Serosanguineous -Wound Margin Flat & Intact -Granulation Amt Small (1-33%) -Granulation Quality [place] -Slough/Fibrin Yes -Necrosis Amt Large (67-100%) -Necrotic Tissue Type Adherent Slough -Structure Exposed N/A -Texture (Lisa-wound Skin Appearance) Assessed, Scarring -Moisture (Lisa-wound Skin Appearance Assessed, ) Maceration -Color (Lisa-wound Skin Appearance) Assessed, Hemosiderin Staining -Temperature (Lisa-wound Skin No Abnormality Appearance) (Pt Warm) -Tenderness on Palpation (Lisa-wound No Skin Appearance) -Ulcer Cleansing soap and water -Foul Odor after Cleansing No -Anesthetic Used 4% Lidocaine Solution #6 POSTERIOR LLE -Combined with other wound No -Current Size (cm) - Length 14.0 -Current Size (cm) - Width 1.3 -Current Size (cm) - Depth 0.3 -Total Square Cm 18.20 -Photo Taken No -Epithelialization Small 1-33% -Tunneling No -Undermining/Tunneling No -Circular Undermining No -Exudate Amt None Present -Exudate Type Serosanguineous -Wound Margin Flat & Intact -Granulation Amt Medium (34-66%) -Granulation Quality [place] -Slough/Fibrin Yes -Necrosis Amt Medium (34-66%) -Necrotic Tissue Type Adherent Slough -Structure Exposed N/A -Texture (Lias-wound Skin Appearance) Assessed, Scarring -Moisture (Lisa-wound Skin Appearance Assessed,Dry/ ) Scaly -Color (Lisa-wound Skin Appearance) Assessed, Hemosiderin Staining -Temperature (Lisa-wound Skin No Abnormality Appearance) (Pt Warm) -Tenderness on Palpation (Lisa-wound No Skin Appearance) -Ulcer Cleansing soap and water -Foul Odor after Cleansing No -Anesthetic Used 4% Lidocaine Solution #4 POSTERIOR RLE -Combined with other wound No -Current Size (cm) - Length 12.0 -Current Size (cm) - Width 3.6 -Current Size (cm) - Depth 0.2 -Total Square Cm 43.20 -Photo Taken No -Epithelialization Small 1-33% -Tunneling No -Undermining/Tunneling No -Circular Undermining No -Exudate Amt Small -Exudate Type Serosanguineous -Wound Margin Flat & Intact -Granulation Amt Large (67-100%) -Granulation Quality [place] -Slough/Fibrin Yes -Necrosis Amt Small (1-33%) -Necrotic Tissue Type Adherent Slough -Structure Exposed N/A -Texture (Lisa-wound Skin Appearance) Assessed, Scarring -Moisture (Lisa-wound Skin Appearance Assessed,Dry/ ) Scaly -Color (Lisa-wound Skin Appearance) Assessed, Hemosiderin Staining -Temperature (Lisa-wound Skin No Abnormality Appearance) (Pt Warm) -Tenderness on Palpation (Lisa-wound No Skin Appearance) -Ulcer Cleansing soap and water -Anesthetic Used 4% Lidocaine Solution #2 R POLLOCK CLUSTER -Combined with other wound No -Current Size (cm) - Length 0.1 -Current Size (cm) - Width 0.1 -Current Size (cm) - Depth 0.1 -Total Square Cm 0.01 -Photo Taken No -Epithelialization Small 1-33% -Tunneling No -Undermining/Tunneling No -Circular Undermining No -Exudate Amt Small -Exudate Type Serosanguineous -Wound Margin Flat & Intact -Granulation Amt None Present (0 %) -Granulation Quality N/A -Slough/Fibrin Yes -Necrosis Amt Large (67-100%) -Necrotic Tissue Type Adherent Slough -Structure Exposed N/A -Texture (Lisa-wound Skin Appearance) Not Assessed, Scarring -Moisture (Lisa-wound Skin Appearance Assessed,Dry/ ) Scaly -Color (Lisa-wound Skin Appearance) Assessed, Hemosiderin Staining -Temperature (Lisa-wound Skin No Abnormality Appearance) (Pt Warm) -Tenderness on Palpation (Lisa-wound No Skin Appearance) -Ulcer Cleansing soap and water -Foul Odor after Cleansing No -Anesthetic Used 4% Lidocaine Solution #1 RIGHT GRT TOE/2ND TOE WEB SPACE -Combined with other wound No -Current Size (cm) - Length 0.5 -Current Size (cm) - Width 0.2 -Current Size (cm) - Depth 0.1 -Total Square Cm 0.10 -Photo Taken No -Epithelialization Small 1-33% -Tunneling No -Undermining/Tunneling No -Circular Undermining No -Exudate Amt Small -Exudate Type Serosanguineous -Wound Margin Flat & Intact -Granulation Amt None Present (0 %) -Granulation Quality N/A -Slough/Fibrin Yes -Necrosis Amt Large (67-100%) -Necrotic Tissue Type Adherent Slough -Structure Exposed N/A -Texture (Lisa-wound Skin Appearance) Assessed, Scarring -Moisture (Lisa-wound Skin Appearance Assessed,Dry/ ) Scaly -Color (Lisa-wound Skin Appearance) No Abnormality, Assessed -Temperature (Lisa-wound Skin No Abnormality Appearance) (Pt Warm) -Tenderness on Palpation (Lisa-wound No Skin Appearance) -Ulcer Cleansing soap and water -Foul Odor after Cleansing No -Anesthetic Used 4% Lidocaine Solution [Edema Assessment] -Lower Limb Edema Present Yes -Right Calf (cm) 37.0 -Right Ankle (cm) 22.5 -Left Calf (cm) 35.8 -Left Ankle (cm) 21.5 WC - Nurse 2 - General Ulcer CM Notes Start: 09/27/19 08:03 Freq: Status: Active Protocol: Activity Type Activity Date Activity User E-Sign Co-Sign Detail Recorded Client Recorded Date Recorded By Document 09/27/19 08:50 JAMAL [id number] 09/27/19 08:56 JAMAL 09/27/19 08:50 Wound Center Nurse 2 [Procedure/Treatment] #14 R medial ankle -Time 08:52 -Correct Patient Yes -Correct Side, Site, Position Yes -Correct Procedure Yes -Procedure Performed Yes -Type of Procedure Debridement -Clinical Debridement Subcutaneous -Post Debridement Size (cm) - Length 3.1 -Post Debridement Size (cm) - Width 0.8 -Post Debridement Size (cm) - Depth 0.2 -Total Square Cm 2.48 -Wound/Ulcer Outcome Not Healed -Ulcer Cleansing Rinsed/ Irrigated with Saline -Foul Odor after Cleansing No -Bioengineered Tissue Yes -Type of bioengineered Tissue EPIFIX -Expiration Date 03/22/24 -Product Lot Number [id number] -Percent Used 100 -Saline Lot Number [id number] -Bleeding Controlled with Pressure -Offloading No -Treatment Response Procedure Tolerated Well #11 RIGHT MEDIAL FOOT -Time 08:53 -Correct Patient Yes -Correct Side, Site, Position Yes -Correct Procedure Yes -Procedure Performed Yes -Type of Procedure Debridement -Clinical Debridement Subcutaneous -Post Debridement Size (cm) - Length 1.8 -Post Debridement Size (cm) - Width 1.1 -Post Debridement Size (cm) - Depth 0.3 -Total Square Cm 1.98 -Wound/Ulcer Outcome Not Healed -Ulcer Cleansing Rinsed/ Irrigated with Saline -Foul Odor after Cleansing No -Bioengineered Tissue Yes -Type of bioengineered Tissue EPIFIX -Expiration Date 03/22/24 -Product Lot Number [id number] -Percent Used 100 -Saline Lot Number [id number] -Bleeding Controlled with Pressure -Offloading No -Treatment Response Procedure Tolerated Well #6 POSTERIOR LLE -Time 08:53 -Correct Patient Yes -Correct Side, Site, Position Yes -Correct Procedure Yes -Procedure Performed Yes -Type of Procedure Debridement -Clinical Debridement Subcutaneous -Post Debridement Size (cm) - Length 14.1 -Post Debridement Size (cm) - Width 1.3 -Post Debridement Size (cm) - Depth 0.3 -Total Square Cm 18.33 -Wound/Ulcer Outcome Not Healed -Ulcer Cleansing Rinsed/ Irrigated with Saline -Foul Odor after Cleansing No -Bioengineered Tissue No -Bleeding Controlled with Pressure -Offloading No -Treatment Response Procedure Tolerated Well #4 POSTERIOR RLE -Time 08:54 -Correct Patient Yes -Correct Side, Site, Position Yes -Correct Procedure Yes -Procedure Performed Yes -Type of Procedure Debridement -Clinical Debridement Subcutaneous -Post Debridement Size (cm) - Length 12.1 -Post Debridement Size (cm) - Width 3.6 -Post Debridement Size (cm) - Depth 0.2 -Total Square Cm 43.56 -Wound/Ulcer Outcome Not Healed -Ulcer Cleansing Rinsed/ Irrigated with Saline -Foul Odor after Cleansing No -Bioengineered Tissue No -Bleeding Controlled with Pressure -Offloading No -Treatment Response Procedure Tolerated Well #2 R POLLOCK CLUSTER -Correct Patient No -Correct Side, Site, Position No -Correct Procedure No -Procedure Performed No -Post Debridement Size (cm) - Length 0 -Post Debridement Size (cm) - Width 0 -Post Debridement Size (cm) - Depth 0 -Total Square Cm 0 -Wound/Ulcer Outcome Healed- Epithelialized #1 RIGHT GRT TOE/2ND TOE WEB SPACE -Time 08:54 -Correct Patient Yes -Correct Side, Site, Position Yes -Correct Procedure Yes -Procedure Performed Yes -Type of Procedure Debridement -Clinical Debridement Subcutaneous -Post Debridement Size (cm) - Length 0.6 -Post Debridement Size (cm) - Width 0.2 -Post Debridement Size (cm) - Depth 0.2 -Total Square Cm 0.12 -Wound/Ulcer Outcome Not Healed -Ulcer Cleansing Rinsed/ Irrigated with Saline -Foul Odor after Cleansing No -Bioengineered Tissue No -Bleeding Controlled with Pressure -Offloading No -Treatment Response Procedure Tolerated Well [See Physician Procedure note for Specifics] Pain Scale: 0-10 Numeric [Pain] -Is Patient Pain Free? Yes Musculoskeletal: No Tenderness to Palpation of Joints or Extremities, Muscle Wasting, - - Compartment soft bilateral Neurological: - - Lack of normal epicritic sensation light touch consistent with neuropathy status Psych/Mental Status: Normal Affect, Appropriate Debridement Note Post-Debridement Measurements/Treatment WC - Nurse 2 - General Ulcer CM Notes Start: 09/27/19 08:03 Freq: Status: Active Protocol: Activity Type Activity Date Activity User E-Sign Co-Sign Detail Recorded Client Recorded Date Recorded By Document 09/27/19 08:50 JAMAL [id number] 09/27/19 08:56 JAMAL 09/27/19 08:50 Wound Center Nurse 2 #14 R medial ankle -Time 08:52 -Correct Patient Yes -Correct Side, Site, Position Yes -Correct Procedure Yes -Procedure Performed Yes -Type of Procedure Debridement -Clinical Debridement Subcutaneous -Post Debridement Size (cm) - Length 3.1 -Post Debridement Size (cm) - Width 0.8 -Post Debridement Size (cm) - Depth 0.2 -Total Square Cm 2.48 -Wound/Ulcer Outcome Not Healed -Ulcer Cleansing Rinsed/ Irrigated with Saline -Foul Odor after Cleansing No -Bioengineered Tissue Yes -Type of bioengineered Tissue EPIFIX -Expiration Date 03/22/24 -Product Lot Number [id number] -Percent Used 100 -Saline Lot Number [id number] -Bleeding Controlled with Pressure -Offloading No -Treatment Response Procedure Tolerated Well #11 RIGHT MEDIAL FOOT -Time 08:53 -Correct Patient Yes -Correct Side, Site, Position Yes -Correct Procedure Yes -Procedure Performed Yes -Type of Procedure Debridement -Clinical Debridement Subcutaneous -Post Debridement Size (cm) - Length 1.8 -Post Debridement Size (cm) - Width 1.1 -Post Debridement Size (cm) - Depth 0.3 -Total Square Cm 1.98 -Wound/Ulcer Outcome Not Healed -Ulcer Cleansing Rinsed/ Irrigated with Saline -Foul Odor after Cleansing No -Bioengineered Tissue Yes -Type of bioengineered Tissue EPIFIX -Expiration Date 03/22/24 -Product Lot Number [id number] -Percent Used 100 -Saline Lot Number [id number] -Bleeding Controlled with Pressure -Offloading No -Treatment Response Procedure Tolerated Well #6 POSTERIOR LLE -Time 08:53 -Correct Patient Yes -Correct Side, Site, Position Yes -Correct Procedure Yes -Procedure Performed Yes -Type of Procedure Debridement -Clinical Debridement Subcutaneous -Post Debridement Size (cm) - Length 14.1 -Post Debridement Size (cm) - Width 1.3 -Post Debridement Size (cm) - Depth 0.3 -Total Square Cm 18.33 -Wound/Ulcer Outcome Not Healed -Ulcer Cleansing Rinsed/ Irrigated with Saline -Foul Odor after Cleansing No -Bioengineered Tissue No -Bleeding Controlled with Pressure -Offloading No -Treatment Response Procedure Tolerated Well #4 POSTERIOR RLE -Time 08:54 -Correct Patient Yes -Correct Side, Site, Position Yes -Correct Procedure Yes -Procedure Performed Yes -Type of Procedure Debridement -Clinical Debridement Subcutaneous -Post Debridement Size (cm) - Length 12.1 -Post Debridement Size (cm) - Width 3.6 -Post Debridement Size (cm) - Depth 0.2 -Total Square Cm 43.56 -Wound/Ulcer Outcome Not Healed -Ulcer Cleansing Rinsed/ Irrigated with Saline -Foul Odor after Cleansing No -Bioengineered Tissue No -Bleeding Controlled with Pressure -Offloading No -Treatment Response Procedure Tolerated Well #2 R POLLOCK CLUSTER -Correct Patient No -Correct Side, Site, Position No -Correct Procedure No -Procedure Performed No -Post Debridement Size (cm) - Length 0 -Post Debridement Size (cm) - Width 0 -Post Debridement Size (cm) - Depth 0 -Total Square Cm 0 -Wound/Ulcer Outcome Healed- Epithelialized #1 RIGHT GRT TOE/2ND TOE WEB SPACE -Time 08:54 -Correct Patient Yes -Correct Side, Site, Position Yes -Correct Procedure Yes -Procedure Performed Yes -Type of Procedure Debridement -Clinical Debridement Subcutaneous -Post Debridement Size (cm) - Length 0.6 -Post Debridement Size (cm) - Width 0.2 -Post Debridement Size (cm) - Depth 0.2 -Total Square Cm 0.12 -Wound/Ulcer Outcome Not Healed -Ulcer Cleansing Rinsed/ Irrigated with Saline -Foul Odor after Cleansing No -Bioengineered Tissue No -Bleeding Controlled with Pressure -Offloading No -Treatment Response Procedure Tolerated Well Pain Scale: 0-10 Numeric Is Patient Pain Free? Yes Wound debrided: forefoot amputation site Laterality: Right Wound Grade/Stage: grade 3 Type of Debridement: Excisional debridement Anesthesia Used: 5% Lidocaine Gel Depth: in the subcutaneous layer Percentage of wound debrided: 100 Instrument Used: #15 blade Tissue Removed: fibrous, devitalized subcutaneous, biofilm, slough Severity: Fat Layer Exposed Amount of bleeding with debridement: Mild Bleeding Controlled with: Pressure Patient tolerated procedure well - Additional Wound Wound debrided: medial foot Laterality: Right Wound Grade/Stage: grade 3 Type of Debridement: Excisional debridement Anesthesia Used: 5% Lidocaine Gel Depth: in the subcutaneous layer Percentage of wound debrided: 100 Instrument Used: #15 blade Tissue Removed: fibrous, devitalized subcutaneous, biofilm, slough Severity: Fat Layer Exposed Amount of bleeding with debridement: Mild Bleeding Controlled with: Pressure Patient tolerated procedure: Patient tolerated procedure well - Additional Wound Wound debrided: medial hindfoot Laterality: Right Wound Grade/Stage: grade 3 Type of Debridement: Excisional debridement Anesthesia Used: 5% Lidocaine Gel Depth: in the subcutaneous layer Percentage of wound debrided: 100 Instrument Used: #15 blade Tissue Removed: fibrous, devitalized subcutaneous, biofilm, slough Severity: Fat Layer Exposed Amount of bleeding with debridement: Mild Bleeding Controlled with: Pressure Patient tolerated procedure: Patient tolerated procedure well - Additional Wound Wound debrided: anterior proximal leg Laterality: Right Wound Grade/Stage: grade 1 Type of Debridement: Excisional debridement Anesthesia Used: 5% Lidocaine Gel Depth: in the subcutaneous layer Percentage of wound debrided: 100 Instrument Used: #15 blade Tissue Removed: fibrous, devitalized subcutaneous, biofilm, slough Severity: Fat Layer Exposed Amount of bleeding with debridement: Mild Bleeding Controlled with: Pressure Patient tolerated procedure: Patient tolerated procedure well - Additional Wound Wound debrided: posterior lower extremity (includes foot heel) Laterality: Right Wound Grade/Stage: grade 3 Type of Debridement: Excisional debridement Anesthesia Used: 5% Lidocaine Gel Depth: in the subcutaneous layer Percentage of wound debrided: 100 Instrument Used: #15 blade Tissue Removed: fibrous, devitalized subcutaneous, biofilm, slough Severity: Fat Layer Exposed Amount of bleeding with debridement: Mild Bleeding Controlled with: Pressure Patient tolerated procedure: Patient tolerated procedure well - Additional Wound Wound debrided: posterior leg Laterality: Left Wound Grade/Stage: grade 2 Type of Debridement: Excisional debridement Anesthesia Used: 5% Lidocaine Gel Depth: in the subcutaneous layer Percentage of wound debrided: 100 Instrument Used: #15 blade Tissue Removed: fibrous, devitalized subcutaneous, biofilm, slough Severity: Fat Layer Exposed Amount of bleeding with debridement: Mild Bleeding Controlled with: Pressure Patient tolerated procedure: Patient tolerated procedure well Assessment/Plan Active Problems (Last Updated 09/28/18 @ 12:41 by Geraldine Steele) Type 2 diabetes mellitus with foot ulcer (Chronic) Non-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) Type 2 diabetes mellitus with foot ulcer (Chronic) 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 -open second and third ray resection secondary to osteomyelitis in infection and necrotizing fasciitis (right foot ulcer now with fascia and subcutaneous tissue exposed)--reopened today. -previous bilateral leg fasciotomies and debridements and irrigation performed previously now with right and left leg ulcers with fat and tendon layers exposed. -diabetic neuropathy. -malnutrition suspected. 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 -delayed healing. -gait impairment and fall risk. -other comorbidities. -Continued smoking habits Plan: I reviewed and discussed his case today. Subcutaneous excisional debridement was performed today as noted panel to all sites. All sites appears stable without signs of infection and her demonstrating clinical improvement since the operating room procedure. He is amenable to proceed with epi-fix application today. Verbal consent was obtained and this was applied according standard protocol. This was secured in place with a wound veil and Steri-Strips to the right foot ulcer sites. He tolerated this well. He was advised to keep this clean and intact until follow-up visit next week to the posterior right leg. It is noted the advance product was broken into smaller pieces and placed around the peripheral border to optimize ulcer stimulation. Indication, planned procedure, anticipated healing and management were discussed in detail with the patient. He understands this is a staged application. This is medically necessary for limb salvage. He has demonstrated significant delays in healing under his prior comprehensive wound healing plan. I recommend considering return to operating room for more aggressive debridement application of amnio fill in larger amounts to further contribute to timely healing. He has been responding well to the advanced wound products in the outpatient setting. He is amendable to proceed with this recommended procedure after he goes for routine checkup middle to end of September with his primary care provider. He understands preoperative clearance will be needed. The indications, planned procedure, application, anticipated healing time is were discussed. No guarantees were made. He was reassured no local or systemic signs of illness is suspected today. To change the other ulcer sites dressings daily with hydrogel bilateral. To continue increased protein intake with nutritional supplementation. To continue glycemic control. He had a previous arterial Doppler scheduled with Dr. Morgan's staff on August 02, 2018 and overall perfusion was confirmed; additional intervention or workup was not recommended. It is also noted that he did have venous Doppler performed with reflux evaluation. He did not have evidence of deep venous thrombosis or venous insufficiency at that time; the vessels were compressible. I recommend he sustained from smoking and alcohol activities to optimize healing as well. This is discussed at length again today and he defers smoking cessation referral program. He decreased his habits from 20 cigarettes a day to 10 and I encouraged him to strive for 5 or less. Prior workup summary: His workup for vasculitis and underlying autoimmune disorder has been completed. A punch biopsy was sent during his last surgical intervention on June 10 and this demonstrated inflammatory changes without malignancy. He had initial screening labs and so far he has a negative RA titer, HL of the 27, KEVIN, anti-CCP, and rheumatoid factor. Several his antibody screenings were not reportable. Hyperbaric oxygen therapy was recommended and it is noted his ejection fraction was most recently 50%. He refuses at this time. . I answered his questions. To return to the wound healing center in 1 week. To call sooner if he has any questions or concerns.
[2019-10-04 08:18] VITALS: BP 146/85; PULSE 94; RESP 18; TEMP 35.5; BMI 32.1
--- NOTE | 2019-10-04 09:46 | PN.PCM_ITS ---
(1) Type 2 diabetes mellitus with foot ulcer Status: Chronic Current Visit: Yes Code(s): E11.621 - Type 2 diabetes mellitus with foot ulcer; L97.509 - Non-pressure chronic ulcer of other part of unspecified foot with unspecified severity (2) Type 2 diabetes mellitus with foot ulcer Status: Chronic Current Visit: Yes Code(s): E11.621 - Type 2 diabetes mellitus with foot ulcer; L97.509 - Non-pressure chronic ulcer of other part of unspecified foot with unspecified severity (3) Non-pressure chronic ulcer of other part of right foot with fat layer exposed Status: Chronic Current Visit: Yes Code(s): L97.512 - Non-pressure chronic ulcer of other part of right foot with fat layer exposed (4) 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 Status: Chronic Current Visit: Yes Code(s): L97.913 - Non-pressure chronic ulcer of unspecified part of right lower leg with necrosis of muscle (5) Ulcer of right lower extremity with fat layer exposed Status: Chronic Current Visit: Yes Code(s): L97.912 - Non-pressure chronic ulcer of unspecified part of right lower leg with fat layer exposed (6) Type 2 diabetes mellitus with diabetic polyneuropathy Status: Chronic Current Visit: Yes Code(s): E11.42 - Type 2 diabetes mellitus with diabetic polyneuropathy (7) Delayed wound healing Status: Chronic Current Visit: Yes Code(s): T14.8XXD - Other injury of unspecified body region, subsequent encounter (8) Tobacco dependence due to cigarettes Status: Chronic Current Visit: Yes Code(s): F17.210 - Nicotine dependence, cigarettes, uncomplicated (9) Ulcer of left lower extremity with fat layer exposed Status: Chronic Current Visit: Yes Code(s): L97.922 - Non-pressure chronic ulcer of unspecified part of left lower leg with fat layer exposed (10) Malnutrition Status: Chronic Current Visit: Yes Code(s): E46 - Unspecified protein- calorie malnutrition Type of Wound Date of Service: 10/04/19 Chief Complaint: right and left Leg ulcers and right foot ulcers History of Wound: Mr. Arguello is a 64-year-old male with multiple comorbidities follows up for delayed healing ulcers to the right foot as well as bilateral legs. These are chronic and he has had previous remote surgical intervention. He also had operating room debridement performed on June 30, 2019 bilateral lower extremities to all bilateral ulcer sites with additional application of advanced wound healing products including amnio fill and epi-cord to bilateral posterior legs. He denies chills, fever, nausea, or vomiting. He presents today with his . He refuses hyperbaric oxygen therapy treatment. He denies odor or redness. He relates complete resolution of pain. He is ready to proceed with epifix today that was approved. Progress of Wound: improving bilateral - Physical Exam Vital Signs Temp Pulse Resp BP 96 F L 94 18 146/85 H 10/04/19 08:18 10/04/19 08:18 10/04/19 08:18 10/04/19 08:18 General: Alert, Oriented x3, Cooperative, No apparent distress HEENT: Atraumatic Extremities: No cyanosis, Capillary Refill Less than 3 Seconds, No Calf Tenderness - negative robin and winter bilateral, Diminished Peripheral Pulses, Edema - mild bilateral Skin: Ulcer/ Wound - no purulence, no erythema, no streaking, no infection, no bruising bilateral. atrophic peripheral skin noted. peripheral epithelialization noted Wound Measurements and Assessment WC - Nurse 1 - General Ulcer Measurement Start: 09/27/19 08:03 Freq: Status: Active Protocol: Activity Type Activity Date Activity User E-Sign Co-Sign Detail Recorded Client Recorded Date Recorded By Document 10/04/19 08:18 [id number] 10/04/19 08:40 10/04/19 08:18 Wound Center Nurse 1 [Ulcer Assessment] Right inferior [place] -Combined with other wound No -Current Size (cm) - Length 1.7 -Current Size (cm) - Width 1.4 -Current Size (cm) - Depth 0.1 -Total Square Cm 2.38 -Date of Last Picture (Recall this 10/04/19 field) -Photo Taken Yes -Epithelialization None Present -Tunneling No -Undermining/Tunneling No -Circular Undermining No -Classification - Thickness Partial Thickness -Classification - Allen Grading ( Grade 2 Diabetic Ulcer) -Exudate Amt Medium -Exudate Type Serous -Wound Margin Flat & Intact -Granulation Amt None Present (0 %) -Granulation Quality N/A -Slough/Fibrin No -Necrosis Amt None Present (0 %) -Structure Exposed None/Limited to Skin Breakdown -Texture (Lisa-wound Skin Appearance) No Abnormality -Moisture (Lisa-wound Skin Appearance No Abnormality ) -Color (Lisa-wound Skin Appearance) No Abnormality -Temperature (Lisa-wound Skin No Abnormality Appearance) (Pt Warm) -Tenderness on Palpation (Lisa-wound No Skin Appearance) -Ulcer Cleansing soap & water -Foul Odor after Cleansing No -Anesthetic Used 4% Lidocaine Solution Right superior [place] -Combined with other wound No -Current Size (cm) - Length 5 -Current Size (cm) - Width 1.4 -Current Size (cm) - Depth 0.1 -Total Square Cm 7.0 -Date of Last Picture (Recall this 10/04/19 field) -Photo Taken Yes -Epithelialization None Present -Undermining/Tunneling No -Circular Undermining No -Classification - Thickness Partial Thickness -Classification - Allen Grading ( Grade 2 Diabetic Ulcer) -Exudate Amt Medium -Exudate Type Serous -Wound Margin Flat & Intact -Granulation Amt None Present (0 %) -Granulation Quality N/A -Slough/Fibrin No -Necrosis Amt None Present (0 %) -Structure Exposed None/Limited to Skin Breakdown -Texture (Lisa-wound Skin Appearance) No Abnormality -Moisture (Lisa-wound Skin Appearance No Abnormality ) -Color (Lisa-wound Skin Appearance) No Abnormality -Temperature (Lisa-wound Skin No Abnormality Appearance) (Pt Warm) -Tenderness on Palpation (Lisa-wound No Skin Appearance) -Ulcer Cleansing soap & water #14 R medial ankle -Combined with other wound No -Current Size (cm) - Length 1.2 -Current Size (cm) - Width 0.5 -Current Size (cm) - Depth 0.2 -Total Square Cm 0.60 -Photo Taken No -Epithelialization Medium 34-66% -Tunneling No -Undermining/Tunneling No -Circular Undermining No -Classification - Thickness Partial Thickness -Classification - Pressure Ulcer Stage 2 -Classification - Allen Grading ( Grade 2 Diabetic Ulcer) -Change in Wound Grade/Stage No Query Text:If change please identify the Stage/Grade in the comment (ie. S2 G3) -Exudate Amt Small -Exudate Type Yellow/Green -Wound Margin Distinct, Outline Attached -Granulation Amt Small (1-33%) -Granulation Quality Pale -Slough/Fibrin Yes -Necrosis Amt Small (1-33%) -Necrotic Tissue Type Adherent Slough -Structure Exposed None/Limited to Skin Breakdown -Texture (Lisa-wound Skin Appearance) No Abnormality -Moisture (Lisa-wound Skin Appearance No Abnormality ) -Color (Lisa-wound Skin Appearance) No Abnormality -Temperature (Lisa-wound Skin No Abnormality Appearance) (Pt Warm) -Tenderness on Palpation (Lisa-wound No Skin Appearance) -Ulcer Cleansing soap & water -Foul Odor after Cleansing No -Anesthetic Used 4% Lidocaine Solution #11 RIGHT MEDIAL FOOT -Combined with other wound No -Current Size (cm) - Length 1.5 -Current Size (cm) - Width 1 -Current Size (cm) - Depth 0.1 -Total Square Cm 1.5 -Photo Taken No -Epithelialization Medium 34-66% -Undermining/Tunneling No -Circular Undermining No -Classification - Thickness Partial Thickness -Classification - Allen Grading ( Grade 2 Diabetic Ulcer) -Change in Wound Grade/Stage No Query Text:If change please identify the Stage/Grade in the comment (ie. S2 G3) -Exudate Amt Small -Exudate Type Serosanguineous -Wound Margin Distinct, Outline Attached -Granulation Amt Small (1-33%) -Granulation Quality [place] -Slough/Fibrin Yes -Necrosis Amt Small (1-33%) -Necrotic Tissue Type Adherent Slough -Structure Exposed None/Limited to Skin Breakdown -Texture (Lisa-wound Skin Appearance) No Abnormality -Moisture (Lisa-wound Skin Appearance No Abnormality ) -Color (Lisa-wound Skin Appearance) No Abnormality -Temperature (Lisa-wound Skin No Abnormality Appearance) (Pt Warm) -Tenderness on Palpation (Lisa-wound No Skin Appearance) -Ulcer Cleansing soap & water -Foul Odor after Cleansing No -Anesthetic Used 4% Lidocaine Solution #6 POSTERIOR LLE -Combined with other wound No -Current Size (cm) - Length 10 -Current Size (cm) - Width 1.9 -Current Size (cm) - Depth 0.3 -Total Square Cm 19.0 -Photo Taken No -Epithelialization Small 1-33% -Tunneling No -Undermining/Tunneling No -Circular Undermining No -Classification - Thickness Partial Thickness -Change in Wound Grade/Stage No Query Text:If change please identify the Stage/Grade in the comment (ie. S2 G3) -Exudate Amt Small -Exudate Type Serosanguineous -Wound Margin Distinct, Outline Attached -Granulation Amt Small (1-33%) -Granulation Quality Red -Slough/Fibrin Yes -Necrosis Amt Small (1-33%) -Necrotic Tissue Type Adherent Slough -Structure Exposed None/Limited to Skin Breakdown -Texture (Lisa-wound Skin Appearance) No Abnormality -Moisture (Lisa-wound Skin Appearance No Abnormality ) -Color (Lisa-wound Skin Appearance) No Abnormality -Temperature (Lisa-wound Skin No Abnormality Appearance) (Pt Warm) -Tenderness on Palpation (Lisa-wound No Skin Appearance) -Ulcer Cleansing soap & water -Foul Odor after Cleansing No -Anesthetic Used 4% Lidocaine Solution #4 POSTERIOR RLE -Combined with other wound No -Current Size (cm) - Length 12.8 -Current Size (cm) - Width 2.8 -Current Size (cm) - Depth 0.2 -Total Square Cm 35.84 -Photo Taken No -Epithelialization Large 67-100% -Tunneling No -Undermining/Tunneling No -Circular Undermining No -Classification - Thickness Partial Thickness -Change in Wound Grade/Stage No Query Text:If change please identify the Stage/Grade in the comment (ie. S2 G3) -Exudate Amt Small -Exudate Type Serosanguineous -Wound Margin Distinct, Outline Attached -Granulation Amt Small (1-33%) -Granulation Quality [place] -Slough/Fibrin Yes -Necrosis Amt Small (1-33%) -Necrotic Tissue Type Adherent Slough -Structure Exposed None/Limited to Skin Breakdown -Texture (Lisa-wound Skin Appearance) No Abnormality -Moisture (Lisa-wound Skin Appearance No Abnormality ) -Color (Lisa-wound Skin Appearance) No Abnormality -Temperature (Lisa-wound Skin No Abnormality Appearance) (Pt Warm) -Tenderness on Palpation (Lisa-wound No Skin Appearance) -Ulcer Cleansing soap & water -Foul Odor after Cleansing No -Anesthetic Used 4% Lidocaine Solution #1 RIGHT GRT TOE/2ND TOE WEB SPACE -Combined with other wound No -Current Size (cm) - Length 0.2 -Current Size (cm) - Width 0.1 -Current Size (cm) - Depth 0.3 -Total Square Cm 0.02 -Photo Taken No -Tunneling No -Undermining/Tunneling No -Circular Undermining No -Classification - Thickness Partial Thickness -Classification - Allen Grading ( Grade 2 Diabetic Ulcer) -Exudate Amt Small -Exudate Type Serosanguineous -Wound Margin Distinct, Outline Attached -Granulation Amt Medium (34-66%) -Granulation Quality Red -Slough/Fibrin No -Necrosis Amt None Present (0 %) -Structure Exposed None/Limited to Skin Breakdown -Texture (Lisa-wound Skin Appearance) No Abnormality -Moisture (Lisa-wound Skin Appearance No Abnormality ) -Color (Lisa-wound Skin Appearance) No Abnormality -Temperature (Lisa-wound Skin No Abnormality Appearance) (Pt Warm) -Tenderness on Palpation (Lisa-wound No Skin Appearance) -Ulcer Cleansing soap & water -Foul Odor after Cleansing No -Anesthetic Used 4% Lidocaine Solution [Edema Assessment] -Lower Limb Edema Present Yes -Right Calf (cm) 31 -Right Ankle (cm) 21 -Left Calf (cm) 36.3 -Left Ankle (cm) 20 WC - Nurse 2 - General Ulcer CM Notes Start: 09/27/19 08:03 Freq: Status: Active Protocol: Activity Type Activity Date Activity User E-Sign Co-Sign Detail Recorded Client Recorded Date Recorded By Document 10/04/19 08:48 [id number] 10/04/19 08:56 10/04/19 08:48 Wound Center Nurse 2 [Procedure/Treatment] Right inferior [place] -Time 08:51 -Correct Patient Yes -Correct Side, Site, Position Yes -Correct Procedure Yes -Procedure Performed Yes -Type of Procedure Debridement -Clinical Debridement Subcutaneous -Post Debridement Size (cm) - Length 1.8 -Post Debridement Size (cm) - Width 1.5 -Post Debridement Size (cm) - Depth 0.1 -Total Square Cm 2.70 -Wound/Ulcer Outcome Not Healed -Ulcer Cleansing Rinsed/ Irrigated with Saline -Foul Odor after Cleansing No -Bioengineered Tissue No -Bleeding Controlled with Pressure -Offloading No -Treatment Response Procedure Tolerated Well Right superior [place] -Time 08:51 -Correct Patient Yes -Correct Side, Site, Position Yes -Correct Procedure Yes -Procedure Performed Yes -Type of Procedure Debridement -Clinical Debridement Subcutaneous -Post Debridement Size (cm) - Length 5 -Post Debridement Size (cm) - Width 1.5 -Post Debridement Size (cm) - Depth 0.1 -Total Square Cm 7.5 -Wound/Ulcer Outcome Not Healed -Ulcer Cleansing Rinsed/ Irrigated with Saline -Foul Odor after Cleansing No -Bioengineered Tissue No -Bleeding Controlled with Pressure -Offloading No -Treatment Response Procedure Tolerated Well #14 R medial ankle -Time 08:51 -Correct Patient Yes -Correct Side, Site, Position Yes -Correct Procedure Yes -Procedure Performed Yes -Type of Procedure Debridement -Clinical Debridement Subcutaneous -Post Debridement Size (cm) - Length 1.2 -Post Debridement Size (cm) - Width 0.6 -Post Debridement Size (cm) - Depth 0.2 -Total Square Cm 0.72 -Wound/Ulcer Outcome Not Healed -Ulcer Cleansing Rinsed/ Irrigated with Saline -Foul Odor after Cleansing No -Bioengineered Tissue Yes -Type of bioengineered Tissue EPIFIX -Expiration Date 03/22/24 -Product Lot Number [id number] -Percent Used 100 -Saline Lot Number [id number] -Bleeding Controlled with Pressure -Offloading No -Treatment Response Procedure Tolerated Well #11 RIGHT MEDIAL FOOT -Time 08:53 -Correct Patient Yes -Correct Side, Site, Position Yes -Correct Procedure Yes -Procedure Performed Yes -Type of Procedure Debridement -Clinical Debridement Subcutaneous -Post Debridement Size (cm) - Length 1.5 -Post Debridement Size (cm) - Width 1.1 -Post Debridement Size (cm) - Depth 0.1 -Total Square Cm 1.65 -Wound/Ulcer Outcome Not Healed -Ulcer Cleansing Rinsed/ Irrigated with Saline -Foul Odor after Cleansing No -Bioengineered Tissue Yes -Type of bioengineered Tissue EPIFIX -Expiration Date 03/22/24 -Product Lot Number [id number] -Percent Used 100 -Saline Lot Number [id number] -Bleeding Controlled with Pressure -Offloading No -Treatment Response Procedure Tolerated Well #6 POSTERIOR LLE -Time 08:54 -Correct Patient Yes -Correct Side, Site, Position Yes -Correct Procedure Yes -Procedure Performed Yes -Type of Procedure Debridement -Clinical Debridement Subcutaneous -Post Debridement Size (cm) - Length 10 -Post Debridement Size (cm) - Width 2 -Post Debridement Size (cm) - Depth 0.3 -Total Square Cm 20 -Wound/Ulcer Outcome Not Healed -Ulcer Cleansing Rinsed/ Irrigated with Saline -Foul Odor after Cleansing No -Bioengineered Tissue No -Bleeding Controlled with Pressure -Offloading No -Treatment Response Procedure Tolerated Well #4 POSTERIOR RLE -Time 08:54 -Correct Patient Yes -Correct Side, Site, Position Yes -Correct Procedure Yes -Procedure Performed Yes -Type of Procedure Debridement -Clinical Debridement Subcutaneous -Post Debridement Size (cm) - Length 12.8 -Post Debridement Size (cm) - Width 2.9 -Post Debridement Size (cm) - Depth 0.2 -Total Square Cm 37.12 -Wound/Ulcer Outcome Not Healed -Ulcer Cleansing Rinsed/ Irrigated with Saline -Foul Odor after Cleansing No -Bioengineered Tissue No -Bleeding Controlled with Pressure -Offloading No -Treatment Response Procedure Tolerated Well #1 RIGHT GRT TOE/2ND TOE WEB SPACE -Time 08:55 -Correct Patient Yes -Correct Side, Site, Position Yes -Correct Procedure Yes -Procedure Performed Yes -Type of Procedure Debridement -Clinical Debridement Subcutaneous -Post Debridement Size (cm) - Length 0.2 -Post Debridement Size (cm) - Width 0.2 -Post Debridement Size (cm) - Depth 0.3 -Total Square Cm 0.04 -Wound/Ulcer Outcome Not Healed -Ulcer Cleansing Rinsed/ Irrigated with Saline -Foul Odor after Cleansing No -Bioengineered Tissue No -Bleeding Controlled with Pressure -Offloading No -Treatment Response Procedure Tolerated Well [See Physician Procedure note for Specifics] Pain Scale: 0-10 Numeric [Pain] -Is Patient Pain Free? Yes Neurological: - - lack of normal epicritic sensation via light touch Psych/Mental Status: Normal Affect, Appropriate Debridement Note Post-Debridement Measurements/Treatment WC - Nurse 2 - General Ulcer CM Notes Start: 09/27/19 08:03 Freq: Status: Active Protocol: Activity Type Activity Date Activity User E-Sign Co-Sign Detail Recorded Client Recorded Date Recorded By Document 09/27/19 08:50 [id number] 09/27/19 08:56 Document 10/04/19 08:48 [id number] 10/04/19 08:56 09/27/19 10/04/19 08:50 08:48 Wound Center Nurse 2 Right inferior [place] -Time 08:51 -Correct Patient Yes -Correct Side, Site, Position Yes -Correct Procedure Yes -Procedure Performed Yes -Type of Procedure Debridement -Clinical Debridement Subcutaneous -Post Debridement Size (cm) - Length 1.8 -Post Debridement Size (cm) - Width 1.5 -Post Debridement Size (cm) - Depth 0.1 -Total Square Cm 2.70 -Wound/Ulcer Outcome Not Healed -Ulcer Cleansing Rinsed/ Irrigated with Saline -Foul Odor after Cleansing No -Bioengineered Tissue No -Bleeding Controlled with Pressure -Offloading No -Treatment Response Procedure Tolerated Well Right superior [place] -Time 08:51 -Correct Patient Yes -Correct Side, Site, Position Yes -Correct Procedure Yes -Procedure Performed Yes -Type of Procedure Debridement -Clinical Debridement Subcutaneous -Post Debridement Size (cm) - Length 5 -Post Debridement Size (cm) - Width 1.5 -Post Debridement Size (cm) - Depth 0.1 -Total Square Cm 7.5 -Wound/Ulcer Outcome Not Healed -Ulcer Cleansing Rinsed/ Irrigated with Saline -Foul Odor after Cleansing No -Bioengineered Tissue No -Bleeding Controlled with Pressure -Offloading No -Treatment Response Procedure Tolerated Well #14 R medial ankle -Time 08:52 08:51 -Correct Patient Yes Yes -Correct Side, Site, Position Yes Yes -Correct Procedure Yes Yes -Procedure Performed Yes Yes -Type of Procedure Debridement Debridement -Clinical Debridement Subcutaneous Subcutaneous -Post Debridement Size (cm) - Length 3.1 1.2 -Post Debridement Size (cm) - Width 0.8 0.6 -Post Debridement Size (cm) - Depth 0.2 0.2 -Total Square Cm 2.48 0.72 -Wound/Ulcer Outcome Not Healed Not Healed -Ulcer Cleansing Rinsed/ Rinsed/ Irrigated with Irrigated with Saline Saline -Foul Odor after Cleansing No No -Bioengineered Tissue Yes Yes -Type of bioengineered Tissue EPIFIX EPIFIX -Expiration Date 03/22/24 03/22/24 -Product Lot Number [id number] -Percent Used 100 100 -Saline Lot Number [id number] -Bleeding Controlled with Pressure Pressure -Offloading No No -Treatment Response Procedure Procedure Tolerated Well Tolerated Well #11 RIGHT MEDIAL FOOT -Time 08:53 08:53 -Correct Patient Yes Yes -Correct Side, Site, Position Yes Yes -Correct Procedure Yes Yes -Procedure Performed Yes Yes -Type of Procedure Debridement Debridement -Clinical Debridement Subcutaneous Subcutaneous -Post Debridement Size (cm) - Length 1.8 1.5 -Post Debridement Size (cm) - Width 1.1 1.1 -Post Debridement Size (cm) - Depth 0.3 0.1 -Total Square Cm 1.98 1.65 -Wound/Ulcer Outcome Not Healed Not Healed -Ulcer Cleansing Rinsed/ Rinsed/ Irrigated with Irrigated with Saline Saline -Foul Odor after Cleansing No No -Bioengineered Tissue Yes Yes -Type of bioengineered Tissue EPIFIX EPIFIX -Expiration Date 03/22/24 03/22/24 -Product Lot Number [id number] -Percent Used 100 100 -Saline Lot Number [id number] -Bleeding Controlled with Pressure Pressure -Offloading No No -Treatment Response Procedure Procedure Tolerated Well Tolerated Well #6 POSTERIOR LLE -Time 08:53 08:54 -Correct Patient Yes Yes -Correct Side, Site, Position Yes Yes -Correct Procedure Yes Yes -Procedure Performed Yes Yes -Type of Procedure Debridement Debridement -Clinical Debridement Subcutaneous Subcutaneous -Post Debridement Size (cm) - Length 14.1 10 -Post Debridement Size (cm) - Width 1.3 2 -Post Debridement Size (cm) - Depth 0.3 0.3 -Total Square Cm 18.33 20 -Wound/Ulcer Outcome Not Healed Not Healed -Ulcer Cleansing Rinsed/ Rinsed/ Irrigated with Irrigated with Saline Saline -Foul Odor after Cleansing No No -Bioengineered Tissue No No -Bleeding Controlled with Pressure Pressure -Offloading No No -Treatment Response Procedure Procedure Tolerated Well Tolerated Well #4 POSTERIOR RLE -Time 08:54 08:54 -Correct Patient Yes Yes -Correct Side, Site, Position Yes Yes -Correct Procedure Yes Yes -Procedure Performed Yes Yes -Type of Procedure Debridement Debridement -Clinical Debridement Subcutaneous Subcutaneous -Post Debridement Size (cm) - Length 12.1 12.8 -Post Debridement Size (cm) - Width 3.6 2.9 -Post Debridement Size (cm) - Depth 0.2 0.2 -Total Square Cm 43.56 37.12 -Wound/Ulcer Outcome Not Healed Not Healed -Ulcer Cleansing Rinsed/ Rinsed/ Irrigated with Irrigated with Saline Saline -Foul Odor after Cleansing No No -Bioengineered Tissue No No -Bleeding Controlled with Pressure Pressure -Offloading No No -Treatment Response Procedure Procedure Tolerated Well Tolerated Well #2 R [place] CLUSTER -Correct Patient No -Correct Side, Site, Position No -Correct Procedure No -Procedure Performed No -Post Debridement Size (cm) - Length 0 -Post Debridement Size (cm) - Width 0 -Post Debridement Size (cm) - Depth 0 -Total Square Cm 0 -Wound/Ulcer Outcome Healed- Epithelialized #1 RIGHT GRT TOE/2ND TOE WEB SPACE -Time 08:54 08:55 -Correct Patient Yes Yes -Correct Side, Site, Position Yes Yes -Correct Procedure Yes Yes -Procedure Performed Yes Yes -Type of Procedure Debridement Debridement -Clinical Debridement Subcutaneous Subcutaneous -Post Debridement Size (cm) - Length 0.6 0.2 -Post Debridement Size (cm) - Width 0.2 0.2 -Post Debridement Size (cm) - Depth 0.2 0.3 -Total Square Cm 0.12 0.04 -Wound/Ulcer Outcome Not Healed Not Healed -Ulcer Cleansing Rinsed/ Rinsed/ Irrigated with Irrigated with Saline Saline -Foul Odor after Cleansing No No -Bioengineered Tissue No No -Bleeding Controlled with Pressure Pressure -Offloading No No -Treatment Response Procedure Procedure Tolerated Well Tolerated Well Pain Scale: 0-10 Numeric Is Patient Pain Free? Yes Yes Wound debrided: distal foot Laterality: Right Wound Grade/Stage: grade 3 Type of Debridement: Excisional debridement Anesthesia Used: 5% Lidocaine Gel Depth: in the subcutaneous layer Percentage of wound debrided: 100 Instrument Used: #15 blade Tissue Removed: fibrous, devitalized subcutaneous, biofilm, slough Severity: Fat Layer Exposed Amount of bleeding with debridement: Mild Bleeding Controlled with: Pressure Patient tolerated procedure well - Additional Wound Wound debrided: medial foot Laterality: Right Wound Grade/Stage: grade 3 Type of Debridement: Excisional debridement Anesthesia Used: 5% Lidocaine Gel Depth: in the subcutaneous layer Percentage of wound debrided: 100 Instrument Used: #15 blade Tissue Removed: fibrous, devitalized subcutaneous, biofilm, slough Severity: Fat Layer Exposed Amount of bleeding with debridement: Mild Bleeding Controlled with: Pressure Patient tolerated procedure: Patient tolerated procedure well - Additional Wound Wound debrided: medial hindfoot Laterality: Right Wound Grade/Stage: grade 3 Type of Debridement: Excisional debridement Anesthesia Used: 5% Lidocaine Gel Percentage of wound debrided: 100 Instrument Used: #15 blade Tissue Removed: fibrous, devitalized subcutaneous, biofilm, slough Severity: Fat Layer Exposed Amount of bleeding with debridement: Mild Bleeding Controlled with: Pressure Patient tolerated procedure: Patient tolerated procedure well - Additional Wound Wound debrided: anterior leg Laterality: Right Wound Grade/Stage: grade 1 Type of Debridement: Excisional debridement Anesthesia Used: 5% Lidocaine Gel Depth: in the subcutaneous layer Percentage of wound debrided: 100 Instrument Used: #15 blade Tissue Removed: fibrous, devitalized subcutaneous, biofilm, slough Severity: Fat Layer Exposed Amount of bleeding with debridement: Mild Bleeding Controlled with: Pressure - Additional Wound Wound debrided: anterior leg (proximal) Laterality: Right Wound Grade/Stage: grade 1 Type of Debridement: Excisional debridement Anesthesia Used: 5% Lidocaine Gel Depth: in the subcutaneous layer Percentage of wound debrided: 100 Instrument Used: #15 blade Tissue Removed: fibrous, devitalized subcutaneous, biofilm, slough Severity: Fat Layer Exposed Amount of bleeding with debridement: Mild Bleeding Controlled with: Pressure Patient tolerated procedure: Patient tolerated procedure well - Additional Wound Wound debrided: posterior leg Laterality: Right Wound Grade/Stage: grade 3 Type of Debridement: Excisional debridement Anesthesia Used: 5% Lidocaine Gel Depth: in the subcutaneous layer Percentage of wound debrided: 100 Instrument Used: #15 blade Tissue Removed: fibrous, devitalized subcutaneous, biofilm, slough Severity: Fat Layer Exposed Amount of bleeding with debridement: Mild Bleeding Controlled with: Pressure Patient tolerated procedure: Patient tolerated procedure well - Additional Wound Wound debrided: posterior leg Laterality: Left Wound Grade/Stage: grade 2 Type of Debridement: Excisional debridement Anesthesia Used: 5% Lidocaine Gel Depth: in the subcutaneous layer Percentage of wound debrided: 100 Instrument Used: #15 blade Tissue Removed: fibrous, devitalized subcutaneous, biofilm, slough Severity: Fat Layer Exposed Amount of bleeding with debridement: Mild Bleeding Controlled with: Pressure Patient tolerated procedure: Patient tolerated procedure well Assessment/Plan Active Problems (Last Updated 09/28/18 @ 12:41 by Geraldine Steele) Type 2 diabetes mellitus with foot ulcer (Chronic) Non-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) Type 2 diabetes mellitus with foot ulcer (Chronic) 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 -open second and third ray resection secondary to osteomyelitis in infection and necrotizing fasciitis (right foot ulcer now with fascia and subcutaneous tissue exposed)--reopened today. -previous bilateral leg fasciotomies and debridements and irrigation performed previously now with right and left leg ulcers with fat and tendon layers exposed. -diabetic neuropathy. -malnutrition suspected. 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 -delayed healing. -gait impairment and fall risk. -other comorbidities. -Continued smoking habits Plan: I reviewed and discussed his case today. Subcutaneous excisional debridement was performed today as noted panel to all sites. All sites appears stable without signs of infection and her demonstrating clinical improvement since the operating room procedure. He is amenable to proceed with epi-fix application today. Verbal consent was obtained and this was applied according standard protocol. This was secured in place with a wound veil and Steri-Strips to the right foot ulcer sites. He tolerated this well. He was advised to keep this clean and intact until follow-up visit next week to the posterior right leg. It is noted the advance product was broken into smaller pieces and placed around the peripheral border to optimize ulcer stimulation. Indication, planned procedure, anticipated healing and management were discussed in detail with the patient. He understands this is a staged application. This is medically necessary for limb salvage. He has demonstrated significant delays in healing under his prior comprehensive wound healing plan. I recommend considering return to operating room for more aggressive debridement application of amnio fill in larger amounts to further contribute to timely healing. He has been responding well to the advanced wound products in the outpatient setting. He is amendable to proceed with this recommended procedure after he goes for routine checkup middle to end of September with his primary care provider. He understands preoperative clearance will be needed. The indications, planned procedure, application, anticipated healing time is were discussed. No guarantees were made. He was reassured no local or systemic signs of illness is suspected today. To change the other ulcer sites dressings daily with hydrogel bilateral. To continue increased protein intake with nutritional supplementation. To continue glycemic control. He had a previous arterial Doppler scheduled with Dr. Morgan's staff on August 02, 2018 and overall perfusion was confirmed; additional intervention or workup was not recommended. It is also noted that he did have venous Doppler performed with reflux evaluation. He did not have evidence of deep venous thrombosis or venous insufficiency at that time; the vessels were compressible. I recommend he sustained from smoking and alcohol activities to optimize healing as well. This is discussed at length again today and he defers smoking cessation referral program. He decreased his habits from 20 cigarettes a day to 10 and I encouraged him to strive for 5 or less. Prior workup summary: His workup for vasculitis and underlying autoimmune disorder has been completed. A punch biopsy was sent during his last surgical intervention on June 10 and this demonstrated inflammatory changes without malignancy. He had initial screening labs and so far he has a negative RA titer, HL of the 27, KEVIN, anti-CCP, and rheumatoid factor. Several his antibody screenings were not reportable. Hyperbaric oxygen therapy was recommended and it is noted his ejection fraction was most recently 50%. He refuses at this time. . I answered his questions. To return to the wound healing center in 1 week. To call sooner if he has any questions or concerns.
== END 2019-10-21 23:59 ==
LOC: WC 08:00
PROVIDERS: Family Provider Family Medicine; PCP Family Medicine; Visit Provider Podiatrist
DX: E11.621 Type 2 diabetes mellitus with foot ulcer (principal); E11.622 Type 2 diabetes mellitus with other skin ulcer; L97.822 Non-pressure chronic ulcer of other part of left lower leg with fat layer exposed; L97.412 Non-pressure chronic ulcer of right heel and midfoot with fat layer exposed; L97.512 Non-pressure chronic ulcer of other part of right foot with fat layer exposed; F17.210 Nicotine dependence, cigarettes, uncomplicated; E11.42 Type 2 diabetes mellitus with diabetic polyneuropathy; L97.812 Non-pressure chronic ulcer of other part of right lower leg with fat layer exposed
CPT/HCPCS: 11042; 11045; 15275; Q4186

== ENCOUNTER 2019-11-03 10:52 | Day surgery (SDC) | payer MEDICARE, SELFPAY ==
[2019-09-27 08:04] VITALS: BMI 32.1
[2019-10-25 08:12] VITALS: BMI 32.1
[2019-11-03] VITALS (7 sets, daily range): BP systolic 109–124; BP diastolic 56–91; PULSE 45–77; RESP 16; TEMP 36.1–36.5; O2SAT 93–97; BMI 32.3
[2019-11-03 11:34] LABS: Absolute Lymphocyte Count 0.88 X10^3/uL (0.83-4.51); Absolute Neutrophil Count 7.9 X10^3/uL (2.0-7.7); Basophil# 0.04 X10^3/uL; Basophil% 0.4 % (0-1); Eosinophil# 0.08 X10^3/uL; Eosinophils% 0.8 % (0-5); Hematocrit 50.5 % (40-54); Hemoglobin 16.5 g/dL (13.0-16.5); Lymphocyte # 0.88 X10^3/ul (4.0); Lymphocyte % 8.9 % (19-41); Mean Corp Hgb Conc 32.7 g/dL (32-36); Mean Corpuscular Hgb 31.1 pg (27.0-32.0); Mean Corpuscular Volume 95.1 fL (80-94); Mean Platelet Vol. 11.9 fl (6.2-12.0); Monocyte# 0.88 X10^3/uL; Monocyte% 8.9 % (0-10); NRBC Flagged by Analyzer 0 % (0-5); Neutrophil # 7.92 X10^3/uL (2.7-7.7); Neutrophil % 80.4 % (47-70); Platelet Count 122 K/mm3 (150-450); RBC Distribution Width CV 16.8 % (11.6-14.6); RBC Distribution Width SD 58.7 fl (35.1-43.9); Red Blood Count 5.31 M/mm3 (4.6-6.2); White Blood Count 9.9 K/mm3 (4.4-11.0)
[2019-11-03 12:11] LABS: Bedside Glucose 243 mg/dL (70-110)
[2019-11-03] MEDS: Cefazolin 2 GM in 0.9% Normal Saline 100 ML IV (13:51)
[2019-11-03] MEDS: Bupivacaine Mpf 0.5% 30 ML VIAL (14:46)
--- NOTE | 2019-11-03 14:51 | DCINST_ITS ---
Discharge Diet: No Restrictions Discharge Activity: No Restrictions - limit extra activity Weight Bearing Status: Weight bearing as tolerated - right cam walker, left shoe Call your doctor if your incision/area has: Continuous Slow Oozing, Sudden Increased Bleeding, Increased Pain/ Swelling, Increased Redness, Foul Smelling Discharge, Swelling at the incision site Call your doctor if you observe: Fever of 101 or Higher, Calf discomfort, Uncontrolled pain Cleanse incision/area with: Keep Dressing Clean & Dry Allergies/Adverse Reactions: Allergies No Known Allergies Allergy (Verified 11/03/19 11:51) Medications to take at Discharge Aspirin [Adult Aspirin] 81 mg PO DAILY 06/07/18 Cholecalciferol (VIT D3) [Vitamin D3] 1,000 unit PO DAILY 06/07/18 Acetaminophen [Tylenol Tablet] 650 mg PO Q6H PRN PRN tablet 06/14/18 Tamsulosin HCl [Flomax] 0.4 mg PO DAILY@1730 capsule 06/14/18 Zinc Sulfate (50mg elemental) [Zinc Sulfate] 220 mg PO DAILY capsule 06/14/18 Famotidine 20 mg PO DAILY 08/05/18 Insulin Lispro [Humalog] See Protocol SQ 4X/DAY 08/05/18 Multivitamins,Ther W-Minerals [Multivitamin With Minerals] 1 tablet PO DAILY 08/05/18 Paroxetine HCl [Paxil] 40 mg PO DAILY 08/05/18 Warfarin [Coumadin] 5 mg PO MOWEFR 08/05/18 glipiZIDE [Glucotrol] 10 mg PO DAILY@0730 08/05/18 Atenolol [Tenormin (beta dilia)] 50 mg PO DAILY tablet 08/10/18 Bumetanide [Bumex] 2 mg PO DAILY tablet 08/10/18 Ferrous Sulfate 325 mg PO BIDCM tablet 08/10/18 Spironolactone 25 mg PO DAILY 06/29/19 Warfarin [Coumadin ([facility])] 7.5 mg PO SUTUTHSA 06/29/19 Gabapentin [Neurontin] 200 mg PO DAILY 08/09/19 Ascorbic Acid [Vitamin C] 500 mg PO DAILY 10/27/19 Primary Care Physician: Hong Sparks MD [Primary Care Provider] - Test Results: Test results from this visit will be discussed in further detail at your follow- up appointment, if applicable. Please Follow Up With: Izzy Gruber DPM When: 1 week at wound center. call [phone] sooner if questions. Proposed Discharge Date: 11/03/19
--- NOTE | 2019-11-03 14:52 | OP.PCM_ITS ---
Problem List (1) Ulcer of right foot with fat layer exposed Status: Chronic (2) Ulcer of right lower extremity with fat layer exposed Status: Chronic (3) Ulcer of left lower extremity with fat layer exposed Status: Chronic Report of Operation Date of Procedure: 11/03/19 Pre-Operative Diagnosis: Right leg ulcer with fat layer exposed. Right foot ulcers with fat layer exposed. Left leg ulcer with fat layer exposed Post-Operative Diagnosis: Right leg ulcer with fat layer exposed. Right foot ulcers with fat layer exposed. Left leg ulcer with fat layer exposed Surgery/Procedure Performed:: -Subcutaneous excisional debridement right leg ulcer with Versajet and application of amnio fill and epi-cord advanced wound care product. -Subcutaneous excisional debridement of right foot ulcers with Versajet and application of amnio fill advance wound healing product. - Subcutaneous excisional debridement of left leg ulcer with Versajet and application of amnio fill advanced wound healing product Description of Surgical Findings:: Hemostasis: No tourniquet utilized. Anatomic debridement performed Estimated blood loss less than 50 mL Materials: 500 mL of amnio fill advance wound healing products, 1 application of 3 x 5 cm epi-cord Complications: None Specimens: None The patient tolerated the procedure and anesthesia well. He was transported to the PACU with vital signs stable and vascular status intact to the bilateral lower extremities. He will be discharged home-continued stability. His postoperative orders were entered electronically. inspector plug seam: none - Surgeon: Izzy Gruber DPM. Assistants: Sadiq Kaplan PGY2 and Malik Bernard PGY3 Type of Anesthesia:: Local - Intraoperative 5 cc administered of one-to-one mixture of 1% lidocaine plain and 0.5% Marcaine plain ministered the left leg, MAC Estimated Blood Loss (mL): < 50 mL Description of Procedure: Indications: This 64-year-old male with significant past medical history of cardiomyopathy, diabetes with neuropathy, depression, cardiac valve disease, atrial fibrillation on chronic anticoagulation, vasculitis, tobacco use, and other conditions continues to suffer of delayed healing bilateral lower extremities. He had infected lower extremities in which he underwent emergency fasciotomies and infectious debridement well over one year ago. He has been treated at the wound healing center with a comprehensive wound healing program. His wound healing plan including serial debridements, offloading, nutritional supplementation, and wound dressings. He has refused previous advanced wound healing products and hyperbaric therapy. He is now amenable to undergo debridement and application of advanced wound healing product. The preoperative indication, planned procedure, possible benefits, risks, complications, and anticipated healing time as were discussed in detail the patient. He understands and elects to proceed with surgery at this time. No guarantees are made. He understands the complications and risks may include but are not limited to the following: pain, swelling, scarring, blood clot, allergic reaction, continued delayed or nonhealing, need for further surgery, abnormal muscular function of this limb due to compromised tendon, additional infections, loss of limb, function, life, chronic pain. Preoperative clearance and diagnostic data was reviewed. Is noted he does have an INR 2.3. I answered his questions. The surgical limb and consent were signed. Procedure detail: The patient was transported to the operating room via cart and placed on the operating table in supine position. Final verification the patient, surgery, and limb designation was performed via the timeout procedure. No tourniquet was utlizied and MAC anesthesia was initiated by the anesthesia team. Local an esthetic was administered by the podiatry team as noted. Bilateral lower extremities were prepped and draped in the usual aseptic manner and attention was first directed to the lower extremity. Attention was first directed to the posterior right leg in which there was devitalized achilles tendon. The predebridement measurement was: 11.7x 2.7 x 0.3 cm. The post debridement measurement was 11.9 x 2.9 x 0.3 cm. This was an excisional subcutaneous debridement with forceps, 15 blade, and versajet set on setting 8. No exposed tendon, necrosis or infection was currently noted. After the debridement, no purulence or devitalized tissue remained. No erythema, streaking or other abscess was noted. Attention was also directed to the medial foot distal (predebridement: 1.8 x 0.5 x 0.1 cm, post debridement: 2.0 x 0.7 x 0.1 cm), and proximal medial foot (predebridement: 1.8 x 0.9 x 0.2 cm, post debridement: 2.0 x 1.1 x 0.2 cm). These sites had subcutaneous excisional debridement performed with a 15 blade. Attention was next directed to the posterior left leg in which subcutaneous debridement was performed with versajet on setting 8, 15 blade, and forceps. The predebridement measurement was 5.2 x 1.3 x 0.1 cm and post debridement measurement was 5.5 x 1.5 x 0.1 cm. Hemostasis was controlled after debridement to all these site with direct pressure. Anesthesia was achieved with the previously provided local anesthesia. The tissue that was excised to all sites included devitalized subcutaneous, biofilm, slough. Next, saline copious irrigation was performed. Hemostasis was controlled and there was no pulsatile bleeding noted. Capillary fill time remained brisk to digits during and after the procedure. The advanced wound healing product Amniofill (derived from amniotic cord and umbilical cord cells) was applied and secured with overlying adaptic and nylon suture. A total of 500 mg was utilized and was applied to all of the aformentioned debrided ulcer sites. Additionally, umbilical cord derived advanced wound healing product (epicord) was used to incorporate over areas of deep tissue exposure (medial posterior distal leg) to optimize healing. This was secured with 3-0 nylon and superficial adaptic. A secondary dressing of gauze, abdominal pads, kerlix, and gregory wraps were applied to bilateral lower extremities. After procedure: The patient tolerated the procedure and anesthesia well. He was transported to PACU with vital signs stable and vascular status intact to bilateral lower extremities. He was advised to elevate bilateral lower extremities. He will be discharged home upon continued PACU stability. He is to remain weightbearing as tolerated to left lower extremy and WBAT to RLE with CAM walker as tolerated. No infection is noted. This is a planned stage procedure and he will go for additional debridement and irrigation versus other amputations depending on his continued stability versus continued comprehensive wound healing program in the outpatient setting. He has continued on oral anticoagulation medication throughout the operative period and will continue to do so post operative. To continue with diligent ulcer offloading and nutritional supplementation to optimize healing. All of his postoperative orders were entered electronically. Izzy Gruber DPM, [facility] - Complications none - Admit VTE Documentation VTE Present on Admission: No VTE Mechan Device Prophylaxis: SCD's VTE Pharm Prophylaxis ordered?: Yes
[2019-11-03] MEDS: Lactated Ringers 1,000 ML 100 ML IV (15:11)
[2019-11-03 15:31] LABS: Prothrombin Time Fingerstick 26.3 SEC (11.9-14.4)
== END 2019-11-03 15:50 | disposition home health service (06) ==
LOC: SDC 10:52 → AC 10:55
PROVIDERS: Family Provider Family Medicine; PCP Family Medicine; Referring Provider Podiatrist; Visit Provider Podiatrist
PROC: (CPT 11042; principal; 2019-11-03 12:25)
DX: E11.621 Type 2 diabetes mellitus with foot ulcer (principal); L97.512 Non-pressure chronic ulcer of other part of right foot with fat layer exposed; L97.912 Non-pressure chronic ulcer of unspecified part of right lower leg with fat layer exposed; L97.922 Non-pressure chronic ulcer of unspecified part of left lower leg with fat layer exposed; I48.91 Unspecified atrial fibrillation; F41.1 Generalized anxiety disorder; E11.42 Type 2 diabetes mellitus with diabetic polyneuropathy; I13.0 Hypertensive heart and chronic kidney disease with heart failure and stage 1 through stage 4 chronic kidney disease, or unspecified chronic kidney disease; E11.22 Type 2 diabetes mellitus with diabetic chronic kidney disease; N18.3 Chronic kidney disease, stage 3 (moderate); I50.30 Unspecified diastolic (congestive) heart failure; E78.5 Hyperlipidemia, unspecified; I27.20 Pulmonary hypertension, unspecified; F17.210 Nicotine dependence, cigarettes, uncomplicated; E66.9 Obesity, unspecified; Z68.31 Body mass index [BMI] 31.0-31.9, adult; Z99.3 Dependence on wheelchair; Z79.4 Long term (current) use of insulin; Z79.01 Long term (current) use of anticoagulants; Z79.899 Other long term (current) drug therapy
CPT/HCPCS: 11042; 15271; 15275; 36416; 82962; 85025; 85610; J7120; J2405

== ENCOUNTER 2019-11-08 08:00 | Outpatient (RCR) | payer MEDICARE, SELFPAY ==
[2019-10-22 00:29] VITALS: BP 146/85; PULSE 94; RESP 18; TEMP 35.5
[2019-10-25 08:12] VITALS: BP 132/92; PULSE 108; RESP 18; TEMP 36.4; BMI 32.1
--- NOTE | 2019-10-25 09:14 | PN.PCM_ITS ---
(1) Non-pressure chronic ulcer of other part of right foot with fat layer exposed Status: Chronic Current Visit: Yes Code(s): L97.512 - Non-pressure chronic ulcer of other part of right foot with fat layer exposed (2) Type 2 diabetes mellitus with foot ulcer Status: Chronic Current Visit: Yes Code(s): E11.621 - Type 2 diabetes mellitus with foot ulcer; L97.509 - Non-pressure chronic ulcer of other part of unspecified foot with unspecified severity (3) Ulcer of right lower extremity with fat layer exposed Status: Chronic Current Visit: Yes Code(s): L97.912 - Non-pressure chronic ulcer of unspecified part of right lower leg with fat layer exposed (4) Type 2 diabetes mellitus with diabetic polyneuropathy Status: Chronic Current Visit: Yes Code(s): E11.42 - Type 2 diabetes mellitus with diabetic polyneuropathy (5) Vasculitis Status: Chronic Current Visit: Yes Code(s): I77.6 - Arteritis, unspecified (6) PVD (peripheral vascular disease) Status: Suspected Current Visit: Yes Code(s): I73.9 - Peripheral vascular disease, unspecified (7) Tobacco dependence due to cigarettes Status: Chronic Current Visit: Yes Code(s): F17.210 - Nicotine dependence, cigarettes, uncomplicated (8) Ulcer of right lower extremity with fat layer exposed Status: Chronic Current Visit: Yes Code(s): L97.912 - Non-pressure chronic ulcer of unspecified part of right lower leg with fat layer exposed (9) Ulcer of left lower extremity with fat layer exposed Status: Chronic Current Visit: Yes Code(s): L97.922 - Non-pressure chronic ulcer of unspecified part of left lower leg with fat layer exposed (10) Type 2 diabetes mellitus with diabetic polyneuropathy Status: Chronic Current Visit: Yes Code(s): E11.42 - Type 2 diabetes mellitus with diabetic polyneuropathy (11) Malnutrition Status: Chronic Current Visit: Yes Code(s): E46 - Unspecified protein- calorie malnutrition Type of Wound Date of Service: 10/25/19 Chief Complaint: right and left Leg ulcers and right foot ulcers History of Wound: Mr. Arguello is a 64-year-old male with multiple comorbidities follows up for delayed healing ulcers to the right foot as well as bilateral legs. These are chronic and he has had previous remote surgical intervention. He also had operating room debridement performed on June 30, 2019 bilateral lower extremities to all bilateral ulcer sites with additional application of advanced wound healing products including amnio fill and epi-cord to bilateral posterior legs. He denies chills, fever, nausea, or vomiting. He presents today with his . He refuses hyperbaric oxygen therapy treatment. He denies odor or redness. He relates complete resolution of pain. He is ready to proceed with epifix today that was approved. he is ready to proceed with surgery next week. Progress of Wound: improving bilateral - Physical Exam Vital Signs Temp Pulse Resp BP 97.5 F L 108 H 18 132/92 H 10/25/19 08:12 10/25/19 08:12 10/25/19 08:12 10/25/19 08:12 General: Alert, Oriented x3, Cooperative, No apparent distress HEENT: Atraumatic Extremities: No edema, Capillary Refill Less than 3 Seconds, No Calf Tenderness, Diminished Peripheral Pulses Skin: Ulcer/ Wound - No purulence, erythema, string, odor, maceration, necrosis, exposed tendon at this time bilateral lower extremities. The anterior right leg ulcer site is fully epithelialized and healed. His skin is atrophic and hairless bilateral Wound Measurements and Assessment WC - Nurse 1 - General Ulcer Measurement Start: 10/25/19 08:11 Freq: Status: Active Protocol: Activity Type Activity Date Activity User E-Sign Co-Sign Detail Recorded Client Recorded Date Recorded By Document 10/25/19 08:12 DL [id number] 10/25/19 08:21 DL 10/25/19 08:12 Wound Center Nurse 1 [Ulcer Assessment] #15 Right inferior [place] -Current Size (cm) - Length 0.1 -Current Size (cm) - Width 0.1 -Current Size (cm) - Depth 0.1 -Total Square Cm 0.01 -Photo Taken No -Exudate Amt None Present -Wound Margin Thickened -Granulation Amt Small (1-33%) -Granulation Quality Kress -Necrosis Amt Small (1-33%) -Necrotic Tissue Type Adherent Slough -Structure Exposed N/A -Texture (Lisa-wound Skin Appearance) Scarring -Moisture (Lisa-wound Skin Appearance Dry/Scaly ) -Color (Lisa-wound Skin Appearance) Hemosiderin Staining -Ulcer Cleansing Wound Cleanser -Foul Odor after Cleansing No -Anesthetic Used 4% Lidocaine Solution #16 Right superior [place] -Current Size (cm) - Length 0 -Current Size (cm) - Width 0 -Current Size (cm) - Depth 0 -Total Square Cm 0 -Photo Taken Yes -Exudate Amt None Present -Wound Margin Flat & Intact -Granulation Amt Large (67-100%) -Granulation Quality Kress -Necrosis Amt None Present (0 %) -Structure Exposed N/A -Texture (Lisa-wound Skin Appearance) Scarring -Moisture (Lisa-wound Skin Appearance Dry/Scaly ) -Color (Lisa-wound Skin Appearance) Hemosiderin Staining -Temperature (Lisa-wound Skin No Abnormality Appearance) (Pt Warm) -Tenderness on Palpation (Lisa-wound No Skin Appearance) -Ulcer Cleansing Rinsed/ Irrigated with Saline -Foul Odor after Cleansing No #14 R medial ankle -Current Size (cm) - Length 2 -Current Size (cm) - Width 0.5 -Current Size (cm) - Depth 0.2 -Total Square Cm 1.0 -Photo Taken No -Exudate Amt Small -Exudate Type Serosanguineous -Wound Margin Thickened -Granulation Amt Medium (34-66%) -Granulation Quality Red -Necrosis Amt Medium (34-66%) -Necrotic Tissue Type Adherent Slough -Structure Exposed N/A -Texture (Lisa-wound Skin Appearance) Scarring -Moisture (Lisa-wound Skin Appearance Dry/Scaly ) -Color (Lisa-wound Skin Appearance) Hemosiderin Staining -Temperature (Lisa-wound Skin No Abnormality Appearance) (Pt Warm) -Tenderness on Palpation (Lisa-wound No Skin Appearance) -Ulcer Cleansing Rinsed/ Irrigated with Saline -Foul Odor after Cleansing No -Anesthetic Used 4% Lidocaine Solution #11 RIGHT MEDIAL FOOT -Current Size (cm) - Length 2 -Current Size (cm) - Width 1 -Current Size (cm) - Depth 0.2 -Total Square Cm 2 -Photo Taken No -Exudate Amt Small -Exudate Type Serosanguineous -Wound Margin Thickened & Rolled Under -Granulation Amt Small (1-33%) -Granulation Quality Red -Necrosis Amt Large (67-100%) -Necrotic Tissue Type Adherent Slough -Structure Exposed N/A -Texture (Lisa-wound Skin Appearance) Scarring -Moisture (Lisa-wound Skin Appearance Dry/Scaly ) -Color (Lisa-wound Skin Appearance) Hemosiderin Staining -Temperature (Lisa-wound Skin No Abnormality Appearance) (Pt Warm) -Tenderness on Palpation (Lisa-wound No Skin Appearance) -Ulcer Cleansing Rinsed/ Irrigated with Saline -Foul Odor after Cleansing No -Anesthetic Used 4% Lidocaine Solution #6 POSTERIOR LLE -Current Size (cm) - Length 5 -Current Size (cm) - Width 1 -Current Size (cm) - Depth 0.2 -Total Square Cm 5 -Photo Taken No -Exudate Amt Small -Exudate Type Serosanguineous -Wound Margin Distinct, Outline Attached -Granulation Amt Small (1-33%) -Granulation Quality Red -Necrosis Amt Large (67-100%) -Necrotic Tissue Type Adherent Slough -Structure Exposed N/A -Texture (Lisa-wound Skin Appearance) Scarring -Moisture (Lisa-wound Skin Appearance Dry/Scaly ) -Color (Lisa-wound Skin Appearance) Hemosiderin Staining -Temperature (Lisa-wound Skin No Abnormality Appearance) (Pt Warm) -Tenderness on Palpation (Lisa-wound No Skin Appearance) -Ulcer Cleansing Rinsed/ Irrigated with Saline -Foul Odor after Cleansing No -Anesthetic Used 4% Lidocaine Solution #4 POSTERIOR RLE -Current Size (cm) - Length 12 -Current Size (cm) - Width 3 -Current Size (cm) - Depth 0.4 -Total Square Cm 36 -Photo Taken No -Exudate Amt Small -Exudate Type Serosanguineous -Wound Margin Thickened & Rolled Under -Granulation Amt Medium (34-66%) -Granulation Quality Red -Necrosis Amt Medium (34-66%) -Necrotic Tissue Type Adherent Slough -Structure Exposed N/A -Texture (Lisa-wound Skin Appearance) Scarring -Moisture (Lisa-wound Skin Appearance Dry/Scaly ) -Color (Lisa-wound Skin Appearance) Hemosiderin Staining -Temperature (Lisa-wound Skin No Abnormality Appearance) (Pt Warm) -Tenderness on Palpation (Lisa-wound No Skin Appearance) -Ulcer Cleansing Rinsed/ Irrigated with Saline -Foul Odor after Cleansing Yes #1 RIGHT GRT TOE/2ND TOE WEB SPACE -Current Size (cm) - Length 0.1 -Current Size (cm) - Width 0.1 -Current Size (cm) - Depth 0.1 -Total Square Cm 0.01 -Photo Taken No -Exudate Amt None Present -Wound Margin Thickened -Granulation Amt Small (1-33%) -Granulation Quality Kress -Necrosis Amt Small (1-33%) -Necrotic Tissue Type Adherent Slough -Structure Exposed N/A -Texture (Lisa-wound Skin Appearance) Scarring -Moisture (Lisa-wound Skin Appearance Dry/Scaly ) -Color (Lisa-wound Skin Appearance) Hemosiderin Staining -Temperature (Lisa-wound Skin No Abnormality Appearance) (Pt Warm) -Tenderness on Palpation (Lisa-wound No Skin Appearance) -Ulcer Cleansing Rinsed/ Irrigated with Saline -Foul Odor after Cleansing No -Anesthetic Used 4% Lidocaine Solution [Edema Assessment] -Right Calf (cm) 37.2 -Right Ankle (cm) 20.5 -Left Calf (cm) 36.5 -Left Ankle (cm) 20.5 WC - Nurse 2 - General Ulcer CM Notes Start: 10/25/19 08:11 Freq: Status: Active Protocol: Activity Type Activity Date Activity User E-Sign Co-Sign Detail Recorded Client Recorded Date Recorded By Document 10/25/19 08:48 JAMAL [id number] 10/25/19 08:57 JAMAL 10/25/19 08:48 Wound Center Nurse 2 [Procedure/Treatment] #15 Right inferior [place] -Time 08:49 -Correct Patient No -Correct Side, Site, Position No -Correct Procedure No -Procedure Performed No -Post Debridement Size (cm) - Length 0 -Post Debridement Size (cm) - Width 0 -Post Debridement Size (cm) - Depth 0 -Total Square Cm 0 -Wound/Ulcer Outcome Healed- Epithelialized -Ulcer Cleansing Rinsed/ Irrigated with Saline -Foul Odor after Cleansing No -Bioengineered Tissue No -Bleeding Controlled with Pressure -Offloading No -Treatment Response Procedure Tolerated Well #16 Right superior [place] -Time 08:49 -Correct Patient No -Correct Side, Site, Position No -Correct Procedure No -Procedure Performed No -Post Debridement Size (cm) - Length 0 -Post Debridement Size (cm) - Width 0 -Post Debridement Size (cm) - Depth 0 -Total Square Cm 0 -Wound/Ulcer Outcome Healed- Epithelialized -Ulcer Cleansing Rinsed/ Irrigated with Saline -Foul Odor after Cleansing No -Bioengineered Tissue No -Bleeding Controlled with Pressure -Offloading No -Treatment Response Procedure Tolerated Well #14 R medial ankle -Time 08:49 -Correct Patient Yes -Correct Side, Site, Position Yes -Correct Procedure Yes -Procedure Performed Yes -Type of Procedure Debridement -Clinical Debridement Subcutaneous -Post Debridement Size (cm) - Length 2.1 -Post Debridement Size (cm) - Width 0.5 -Post Debridement Size (cm) - Depth 0.2 -Total Square Cm 1.05 -Wound/Ulcer Outcome Not Healed -Ulcer Cleansing Rinsed/ Irrigated with Saline -Foul Odor after Cleansing No -Bioengineered Tissue Yes -Type of bioengineered Tissue EPIFIX -Expiration Date 04/22/24 -Product Lot Number [id number] -Percent Used 100 -Saline Lot Number [id number] -Bleeding Controlled with Pressure -Offloading No -Treatment Response Procedure Tolerated Well #11 RIGHT MEDIAL FOOT -Time 08:50 -Correct Patient Yes -Correct Side, Site, Position Yes -Correct Procedure Yes -Procedure Performed Yes -Type of Procedure Debridement -Clinical Debridement Subcutaneous -Post Debridement Size (cm) - Length 2.1 -Post Debridement Size (cm) - Width 1.1 -Post Debridement Size (cm) - Depth 0.2 -Total Square Cm 2.31 -Wound/Ulcer Outcome Not Healed -Ulcer Cleansing Rinsed/ Irrigated with Saline -Foul Odor after Cleansing No -Bioengineered Tissue Yes -Type of bioengineered Tissue EPIFIX -Expiration Date 04/22/24 -Product Lot Number [id number] -Percent Used 100 -Saline Lot Number [id number] -Bleeding Controlled with Pressure -Offloading No -Treatment Response Procedure Tolerated Well #6 POSTERIOR LLE -Time 08:51 -Correct Patient Yes -Correct Side, Site, Position Yes -Correct Procedure Yes -Procedure Performed Yes -Type of Procedure Debridement -Clinical Debridement Subcutaneous -Post Debridement Size (cm) - Length 5.1 -Post Debridement Size (cm) - Width 1.1 -Post Debridement Size (cm) - Depth 0.2 -Total Square Cm 5.61 -Wound/Ulcer Outcome Not Healed -Ulcer Cleansing Rinsed/ Irrigated with Saline -Foul Odor after Cleansing No -Bioengineered Tissue No -Bleeding Controlled with Pressure -Offloading No -Treatment Response Procedure Tolerated Well #4 POSTERIOR RLE -Time 08:51 -Correct Patient Yes -Correct Side, Site, Position Yes -Correct Procedure Yes -Procedure Performed Yes -Type of Procedure Debridement -Clinical Debridement Subcutaneous -Post Debridement Size (cm) - Length 12.1 -Post Debridement Size (cm) - Width 3 -Post Debridement Size (cm) - Depth 0.4 -Total Square Cm 36.3 -Wound/Ulcer Outcome Not Healed -Ulcer Cleansing Rinsed/ Irrigated with Saline -Foul Odor after Cleansing No -Bioengineered Tissue No -Bleeding Controlled with Pressure -Offloading No -Treatment Response Procedure Tolerated Well #1 RIGHT GRT TOE/2ND TOE WEB SPACE -Time 08:53 -Correct Patient Yes -Correct Side, Site, Position Yes -Correct Procedure Yes -Procedure Performed Yes -Type of Procedure Debridement -Clinical Debridement Subcutaneous -Post Debridement Size (cm) - Length 0.1 -Post Debridement Size (cm) - Width 0.1 -Post Debridement Size (cm) - Depth 0.1 -Total Square Cm 0.01 -Wound/Ulcer Outcome Not Healed -Ulcer Cleansing Rinsed/ Irrigated with Saline -Foul Odor after Cleansing No -Bioengineered Tissue No -Bleeding Controlled with Pressure -Offloading No -Treatment Response Procedure Tolerated Well [See Physician Procedure note for Specifics] Pain Scale: 0-10 Numeric [Pain] -Is Patient Pain Free? Yes Musculoskeletal: No Tenderness to Palpation of Joints or Extremities, Muscle Wasting Neurological: - - Lack of normal epicritic sensation Psych/Mental Status: Normal Affect, Appropriate Debridement Note Post-Debridement Measurements/Treatment WC - Nurse 2 - General Ulcer CM Notes Start: 10/25/19 08:11 Freq: Status: Active Protocol: Activity Type Activity Date Activity User E-Sign Co-Sign Detail Recorded Client Recorded Date Recorded By Document 10/25/19 08:48 JAMAL [id number] 10/25/19 08:57 JAMAL 10/25/19 08:48 Wound Center Nurse 2 #15 Right inferior [place] -Time 08:49 -Correct Patient No -Correct Side, Site, Position No -Correct Procedure No -Procedure Performed No -Post Debridement Size (cm) - Length 0 -Post Debridement Size (cm) - Width 0 -Post Debridement Size (cm) - Depth 0 -Total Square Cm 0 -Wound/Ulcer Outcome Healed- Epithelialized -Ulcer Cleansing Rinsed/ Irrigated with Saline -Foul Odor after Cleansing No -Bioengineered Tissue No -Bleeding Controlled with Pressure -Offloading No -Treatment Response Procedure Tolerated Well #16 Right superior [place] -Time 08:49 -Correct Patient No -Correct Side, Site, Position No -Correct Procedure No -Procedure Performed No -Post Debridement Size (cm) - Length 0 -Post Debridement Size (cm) - Width 0 -Post Debridement Size (cm) - Depth 0 -Total Square Cm 0 -Wound/Ulcer Outcome Healed- Epithelialized -Ulcer Cleansing Rinsed/ Irrigated with Saline -Foul Odor after Cleansing No -Bioengineered Tissue No -Bleeding Controlled with Pressure -Offloading No -Treatment Response Procedure Tolerated Well #14 R medial ankle -Time 08:49 -Correct Patient Yes -Correct Side, Site, Position Yes -Correct Procedure Yes -Procedure Performed Yes -Type of Procedure Debridement -Clinical Debridement Subcutaneous -Post Debridement Size (cm) - Length 2.1 -Post Debridement Size (cm) - Width 0.5 -Post Debridement Size (cm) - Depth 0.2 -Total Square Cm 1.05 -Wound/Ulcer Outcome Not Healed -Ulcer Cleansing Rinsed/ Irrigated with Saline -Foul Odor after Cleansing No -Bioengineered Tissue Yes -Type of bioengineered Tissue EPIFIX -Expiration Date 04/22/24 -Product Lot Number [id number] -Percent Used 100 -Saline Lot Number [id number] -Bleeding Controlled with Pressure -Offloading No -Treatment Response Procedure Tolerated Well #11 RIGHT MEDIAL FOOT -Time 08:50 -Correct Patient Yes -Correct Side, Site, Position Yes -Correct Procedure Yes -Procedure Performed Yes -Type of Procedure Debridement -Clinical Debridement Subcutaneous -Post Debridement Size (cm) - Length 2.1 -Post Debridement Size (cm) - Width 1.1 -Post Debridement Size (cm) - Depth 0.2 -Total Square Cm 2.31 -Wound/Ulcer Outcome Not Healed -Ulcer Cleansing Rinsed/ Irrigated with Saline -Foul Odor after Cleansing No -Bioengineered Tissue Yes -Type of bioengineered Tissue EPIFIX -Expiration Date 04/22/24 -Product Lot Number [id number] -Percent Used 100 -Saline Lot Number [id number] -Bleeding Controlled with Pressure -Offloading No -Treatment Response Procedure Tolerated Well #6 POSTERIOR LLE -Time 08:51 -Correct Patient Yes -Correct Side, Site, Position Yes -Correct Procedure Yes -Procedure Performed Yes -Type of Procedure Debridement -Clinical Debridement Subcutaneous -Post Debridement Size (cm) - Length 5.1 -Post Debridement Size (cm) - Width 1.1 -Post Debridement Size (cm) - Depth 0.2 -Total Square Cm 5.61 -Wound/Ulcer Outcome Not Healed -Ulcer Cleansing Rinsed/ Irrigated with Saline -Foul Odor after Cleansing No -Bioengineered Tissue No -Bleeding Controlled with Pressure -Offloading No -Treatment Response Procedure Tolerated Well #4 POSTERIOR RLE -Time 08:51 -Correct Patient Yes -Correct Side, Site, Position Yes -Correct Procedure Yes -Procedure Performed Yes -Type of Procedure Debridement -Clinical Debridement Subcutaneous -Post Debridement Size (cm) - Length 12.1 -Post Debridement Size (cm) - Width 3 -Post Debridement Size (cm) - Depth 0.4 -Total Square Cm 36.3 -Wound/Ulcer Outcome Not Healed -Ulcer Cleansing Rinsed/ Irrigated with Saline -Foul Odor after Cleansing No -Bioengineered Tissue No -Bleeding Controlled with Pressure -Offloading No -Treatment Response Procedure Tolerated Well #1 RIGHT GRT TOE/2ND TOE WEB SPACE -Time 08:53 -Correct Patient Yes -Correct Side, Site, Position Yes -Correct Procedure Yes -Procedure Performed Yes -Type of Procedure Debridement -Clinical Debridement Subcutaneous -Post Debridement Size (cm) - Length 0.1 -Post Debridement Size (cm) - Width 0.1 -Post Debridement Size (cm) - Depth 0.1 -Total Square Cm 0.01 -Wound/Ulcer Outcome Not Healed -Ulcer Cleansing Rinsed/ Irrigated with Saline -Foul Odor after Cleansing No -Bioengineered Tissue No -Bleeding Controlled with Pressure -Offloading No -Treatment Response Procedure Tolerated Well Pain Scale: 0-10 Numeric Is Patient Pain Free? Yes Wound debrided: medial foot Laterality: Right Wound Grade/Stage: grade 3 Type of Debridement: Excisional debridement Anesthesia Used: 5% Lidocaine Gel Depth: in the subcutaneous layer Percentage of wound debrided: 100 Instrument Used: #15 blade Tissue Removed: fibrous, devitalized subcutaneous, biofilm, slough Severity: Fat Layer Exposed Amount of bleeding with debridement: Mild Bleeding Controlled with: Pressure Patient tolerated procedure well - Additional Wound Wound debrided: medial rearfoot Laterality: Right Wound Grade/Stage: grade 3 Type of Debridement: Excisional debridement Anesthesia Used: 5% Lidocaine Gel Depth: in the subcutaneous layer Percentage of wound debrided: 100 Instrument Used: #15 blade Tissue Removed: fibrous, devitalized subcutaneous, biofilm, slough Severity: Fat Layer Exposed Amount of bleeding with debridement: Mild Bleeding Controlled with: Pressure Patient tolerated procedure: Patient tolerated procedure well - Additional Wound Wound debrided: posterior leg Laterality: Right Wound Grade/Stage: grade 3 Type of Debridement: Excisional debridement Anesthesia Used: 5% Lidocaine Gel Depth: in the subcutaneous layer Percentage of wound debrided: 100 Instrument Used: #15 blade Tissue Removed: fibrous, devitalized subcutaneous, biofilm, slough Severity: Fat Layer Exposed Amount of bleeding with debridement: Mild Bleeding Controlled with: Pressure Patient tolerated procedure: Patient tolerated procedure well - Additional Wound Wound debrided: posterior leg Laterality: Left Wound Grade/Stage: grade 2 Type of Debridement: Excisional debridement Anesthesia Used: 5% Lidocaine Gel Depth: in the subcutaneous layer Percentage of wound debrided: 100 Instrument Used: #15 blade Tissue Removed: fibrous, devitalized subcutaneous, biofilm, slough Severity: Fat Layer Exposed Amount of bleeding with debridement: Mild Bleeding Controlled with: Pressure Patient tolerated procedure: Patient tolerated procedure well Assessment/Plan Active Problems (Last Updated 09/28/18 @ 12:41 by Geraldine Steele) Non-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) Type 2 diabetes mellitus with foot ulcer (Chronic) Ulcer of right lower extremity with fat layer exposed (Chronic) Type 2 diabetes mellitus with diabetic polyneuropathy (Chronic) Vasculitis (Chronic) Tobacco dependence due to cigarettes (Chronic) Ulcer of right lower extremity with fat layer exposed (Chronic) Ulcer of left lower extremity with fat layer exposed (Chronic) Type 2 diabetes mellitus with diabetic polyneuropathy (Chronic) Malnutrition (Chronic) Assessment: -Now status post operating room excisional subcutaneous and tendon debridements to bilateral legs and right foot with additional application of advanced wound healing products to bilateral posterior lower legs--no infection and stable today. -open second and third ray resection secondary to osteomyelitis in infection and necrotizing fasciitis (right foot ulcer now with fascia and subcutaneous tissue exposed)--reopened today. -previous bilateral leg fasciotomies and debridements and irrigation performed previously now with right and left leg ulcers with fat and tendon layers exposed. -diabetic neuropathy. -malnutrition suspected. 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 -delayed healing. -gait impairment and fall risk. -other comorbidities. -Continued smoking habits Plan: I reviewed and discussed his case today. Subcutaneous excisional debridement was performed today as noted panel to all sites. All sites appears stable without signs of infection and her demonstrating clinical improvement since the operating room procedure. He is amenable to proceed with epi-fix application today. Verbal consent was obtained and this was applied according standard protocol. This was secured in place with a wound veil and Steri-Strips to the right foot ulcer sites. He tolerated this well. He was advised to keep this clean and intact until follow-up visit next week to the posterior right leg. It is noted the advance product was broken into smaller pieces and placed around the peripheral border to optimize ulcer stimulation. Indication, planned procedure, anticipated healing and management were discussed in detail with the patient. He understands this is a staged application. This is medically necessary for limb salvage. He has demonstrated significant delays in healing under his prior comprehensive wound healing plan. I recommend considering return to operating room for more aggressive debridement application of amnio fill in larger amounts to further contribute to timely healing. He has been responding well to the advanced wound products in the outpatient setting. He is amendable to proceed with this recommended procedure after he goes for routine checkup middle to end of September with his primary care provider. He understands preoperative clearance will be needed. The indications, planned procedure, application, anticipated healing time is were discussed. No guarantees were made. He was reassured no local or systemic signs of illness is suspected today. To change the other ulcer sites dressings daily with hydrogel bilateral. To continue increased protein intake with nutritional supplementation. To continue glycemic control. He had a previous arterial Doppler scheduled with Dr. Morgan's staff on August 02, 2018 and overall perfusion was confirmed; additional intervention or workup was not recommended. It is also noted that he did have venous Doppler performed with reflux evaluation. He did not have evidence of deep venous thrombosis or venous insufficiency at that time; the vessels were compressible. I recommend he sustained from smoking and alcohol activities to optimize healing as well. This is discussed at length again today and he defers smoking cessation referral program. He decreased his habits from 20 cigarettes a day to 10 and I encouraged him to strive for 5 or less. He is amenable to proceed with surgical debridement in the operating room on 11/03/2019 at [facility] with versa jet application of advanced wound healing products to optimize more timely healing. This will be performed on bilateral legs and also the right foot. The preoperative indication, planned procedure, possible benefits, risk, complications, and anticipated healing time and management were discussed in detail the patient. No guarantees were made. He understands risks and complications may include but are not limited to the following: Pain, swelling, scarring, need for further surgery, infection, delayed or nonhealing, recurrent surgery, loss of limb, function, life, allergic reaction, or blood clot. Answered his questions. The surgical consents were signed. His preoperative clearance and history and physical exam and diagnostic data will be reviewed prior to proceeding. Prior workup summary: His workup for vasculitis and underlying autoimmune disorder has been completed. A punch biopsy was sent during his last surgical intervention on June 10 and this demonstrated inflammatory changes without malignancy. He had initial screening labs and so far he has a negative RA titer, HL of the 27, KEVIN, anti-CCP, and rheumatoid factor. Several his antibody screenings were not reportable. Hyperbaric oxygen therapy was recommended and it is noted his ejection fraction was most recently 50%. He refuses at this time. . I answered his questions. To return to the wound healing center in 2 week and surgery next week. To call sooner if he has any questions or concerns.
[2019-11-08 08:07] VITALS: BP 133/103; PULSE 96; RESP 22; TEMP 35.9; BMI 32.1
--- NOTE | 2019-11-08 09:29 | PN.PCM_ITS ---
(1) Non-pressure chronic ulcer of other part of right foot with fat layer exposed Status: Chronic Current Visit: Yes Code(s): L97.512 - Non-pressure chronic ulcer of other part of right foot with fat layer exposed (2) Type 2 diabetes mellitus with foot ulcer Status: Chronic Current Visit: Yes Code(s): E11.621 - Type 2 diabetes mellitus with foot ulcer; L97.509 - Non-pressure chronic ulcer of other part of unspecified foot with unspecified severity (3) Ulcer of right lower extremity with fat layer exposed Status: Chronic Current Visit: Yes Code(s): L97.912 - Non-pressure chronic ulcer of unspecified part of right lower leg with fat layer exposed (4) Type 2 diabetes mellitus with diabetic polyneuropathy Status: Chronic Current Visit: Yes Code(s): E11.42 - Type 2 diabetes mellitus with diabetic polyneuropathy (5) Vasculitis Status: Chronic Current Visit: Yes Code(s): I77.6 - Arteritis, unspecified (6) PVD (peripheral vascular disease) Status: Suspected Current Visit: Yes Code(s): I73.9 - Peripheral vascular disease, unspecified (7) Tobacco dependence due to cigarettes Status: Chronic Current Visit: Yes Code(s): F17.210 - Nicotine dependence, cigarettes, uncomplicated (8) Ulcer of right lower extremity with fat layer exposed Status: Chronic Current Visit: Yes Code(s): L97.912 - Non-pressure chronic ulcer of unspecified part of right lower leg with fat layer exposed (9) Ulcer of left lower extremity with fat layer exposed Status: Chronic Current Visit: Yes Code(s): L97.922 - Non-pressure chronic ulcer of unspecified part of left lower leg with fat layer exposed (10) Type 2 diabetes mellitus with diabetic polyneuropathy Status: Chronic Current Visit: Yes Code(s): E11.42 - Type 2 diabetes mellitus with diabetic polyneuropathy (11) Malnutrition Status: Chronic Current Visit: Yes Code(s): E46 - Unspecified protein- calorie malnutrition Type of Wound Date of Service: 11/08/19 Chief Complaint: right and left Leg ulcers and right foot ulcers History of Wound: Mr. Arguello is a 64-year-old male with multiple comorbidities follows up for delayed healing ulcers to the right foot as well as bilateral legs. These are chronic and he has had previous remote surgical intervention. He also had operating room debridement performed last on on November 03, 2019 bilateral lower extremities to all bilateral ulcer sites with additional application of advanced wound healing products including amnio fill and epi-cord to bilateral posterior legs and right foot. He denies chills, fever, nausea, or vomiting. He presents today with his . He refuses hyperbaric oxygen therapy treatment. He denies odor or redness. He relates complete resolution of pain. He relates he continues to smoke about a half a pack of cigarettes a day and this is reduced from 1 full pack. Progress of Wound: improving bilateral - Physical Exam Vital Signs Temp Pulse Resp BP 96.6 F L 96 22 H 133/103 H 11/08/19 08:07 11/08/19 08:07 11/08/19 08:07 11/08/19 08:07 General: Alert, Oriented x3, Cooperative, No apparent distress HEENT: Atraumatic Extremities: No cyanosis, Capillary Refill Less than 3 Seconds, No Calf Tenderness, Diminished Peripheral Pulses, Edema Skin: Ulcer/ Wound - No purulence, erythema, streaking, odor, infection. The advanced wound healing products are incorporating and well and remain secured with Adaptic and suture. His adjacent skin is hairless and atrophic Wound Measurements and Assessment WC - Nurse 1 - General Ulcer Measurement Start: 10/25/19 08:11 Freq: Status: Active Protocol: Activity Type Activity Date Activity User E-Sign Co-Sign Detail Recorded Client Recorded Date Recorded By Document 11/08/19 08:07 DL [id number] 11/08/19 08:20 DL 11/08/19 08:07 Wound Center Nurse 1 [Ulcer Assessment] #14 R medial ankle -Photo Taken No -Exudate Amt Small -Exudate Type Serosanguineous -Texture (Lisa-wound Skin Appearance) Scarring -Moisture (Lisa-wound Skin Appearance Dry/Scaly ) -Color (Lisa-wound Skin Appearance) Hemosiderin Staining -Temperature (Lisa-wound Skin No Abnormality Appearance) (Pt Warm) -Tenderness on Palpation (Lisa-wound No Skin Appearance) -Ulcer Cleansing Lisa Ulcer only , Drsgs intact -Foul Odor after Cleansing No #11 RIGHT MEDIAL FOOT -Photo Taken No -Exudate Amt Small -Exudate Type Serosanguineous -Texture (Lisa-wound Skin Appearance) Scarring -Moisture (Lisa-wound Skin Appearance Dry/Scaly ) -Color (Lisa-wound Skin Appearance) Hemosiderin Staining -Temperature (Lisa-wound Skin No Abnormality Appearance) (Pt Warm) -Tenderness on Palpation (Lisa-wound No Skin Appearance) -Ulcer Cleansing Lisa Ulcer only , drsg intact -Foul Odor after Cleansing No #6 POSTERIOR LLE -Photo Taken No -Texture (Lisa-wound Skin Appearance) No Abnormality, Scarring -Moisture (Lisa-wound Skin Appearance No Abnormality, ) Dry/Scaly -Color (Lisa-wound Skin Appearance) Hemosiderin Staining -Temperature (Lisa-wound Skin No Abnormality Appearance) (Pt Warm) -Tenderness on Palpation (Lisa-wound No Skin Appearance) -Ulcer Cleansing Lisa ulcer only , post op drsg intact -Foul Odor after Cleansing No #4 POSTERIOR RLE -Photo Taken No -Exudate Amt Small -Exudate Type Serosanguineous -Texture (Lisa-wound Skin Appearance) Scarring -Moisture (Lisa-wound Skin Appearance Dry/Scaly ) -Color (Lisa-wound Skin Appearance) Hemosiderin Staining -Temperature (Lisa-wound Skin No Abnormality Appearance) (Pt Warm) -Tenderness on Palpation (Lisa-wound No Skin Appearance) -Ulcer Cleansing Lisa Ulcer only , Post op drsg intact -Foul Odor after Cleansing No #1 RIGHT GRT TOE/2ND TOE WEB SPACE -Current Size (cm) - Length 0.1 -Current Size (cm) - Width 0.1 -Current Size (cm) - Depth 0.1 -Total Square Cm 0.01 -Photo Taken No -Exudate Amt None Present -Wound Margin Thickened -Granulation Amt Small (1-33%) -Granulation Quality [place] -Necrosis Amt Small (1-33%) -Necrotic Tissue Type Adherent Slough -Structure Exposed N/A -Texture (Lisa-wound Skin Appearance) Scarring -Moisture (Lisa-wound Skin Appearance Dry/Scaly ) -Color (Lisa-wound Skin Appearance) Hemosiderin Staining, Mottled -Temperature (Lisa-wound Skin Cool/Cold Appearance) -Tenderness on Palpation (Lisa-wound No Skin Appearance) -Ulcer Cleansing Rinsed/ Irrigated with Saline -Foul Odor after Cleansing No -Anesthetic Used 5% Lidocaine Gel [Edema Assessment] -Right Calf (cm) 36.5 -Right Ankle (cm) 21 -Left Calf (cm) 35.5 -Left Ankle (cm) 20 WC - Nurse 2 - General Ulcer CM Notes Start: 10/25/19 08:11 Freq: Status: Active Protocol: Activity Type Activity Date Activity User E-Sign Co-Sign Detail Recorded Client Recorded Date Recorded By Document 11/08/19 08:45 [id number] 11/08/19 08:46 11/08/19 08:45 Wound Center Nurse 2 [Procedure/Treatment] #14 R medial ankle -Correct Patient No -Correct Side, Site, Position No -Correct Procedure No -Procedure Performed No -Wound/Ulcer Outcome Not Healed #11 RIGHT MEDIAL FOOT -Correct Patient No -Correct Side, Site, Position No -Correct Procedure No -Procedure Performed No -Wound/Ulcer Outcome Not Healed #6 POSTERIOR LLE -Correct Patient No -Correct Side, Site, Position No -Correct Procedure No -Procedure Performed No -Wound/Ulcer Outcome Not Healed #4 POSTERIOR RLE -Correct Patient No -Correct Side, Site, Position No -Correct Procedure No -Procedure Performed No -Wound/Ulcer Outcome Not Healed #1 RIGHT GRT TOE/2ND TOE WEB SPACE -Correct Patient No -Correct Side, Site, Position No -Correct Procedure No -Procedure Performed No -Wound/Ulcer Outcome Not Healed [See Physician Procedure note for Specifics] Pain Scale: 0-10 Numeric [Pain] -Is Patient Pain Free? Yes Musculoskeletal: No Tenderness to Palpation of Joints or Extremities, Muscle Wasting Neurological: - - Lack of normal epicritic sensation light touch Psych/Mental Status: Normal Affect, Appropriate Debridement Note Post-Debridement Measurements/Treatment - Nurse 2 - General Ulcer CM Notes Start: 10/25/19 08:11 Freq: Status: Active Protocol: Activity Type Activity Date Activity User E-Sign Co-Sign Detail Recorded Client Recorded Date Recorded By Document 10/25/19 08:48 [id number] 10/25/19 08:57 Document 11/08/19 08:45 [email or web address] 11/08/19 08:46 10/25/19 11/08/19 08:48 08:45 Wound Center Nurse 2 #15 Right inferior [place] -Time 08:49 -Correct Patient No -Correct Side, Site, Position No -Correct Procedure No -Procedure Performed No -Post Debridement Size (cm) - Length 0 -Post Debridement Size (cm) - Width 0 -Post Debridement Size (cm) - Depth 0 -Total Square Cm 0 -Wound/Ulcer Outcome Healed- Epithelialized -Ulcer Cleansing Rinsed/ Irrigated with Saline -Foul Odor after Cleansing No -Bioengineered Tissue No -Bleeding Controlled with Pressure -Offloading No -Treatment Response Procedure Tolerated Well #16 Right superior [place] -Time 08:49 -Correct Patient No -Correct Side, Site, Position No -Correct Procedure No -Procedure Performed No -Post Debridement Size (cm) - Length 0 -Post Debridement Size (cm) - Width 0 -Post Debridement Size (cm) - Depth 0 -Total Square Cm 0 -Wound/Ulcer Outcome Healed- Epithelialized -Ulcer Cleansing Rinsed/ Irrigated with Saline -Foul Odor after Cleansing No -Bioengineered Tissue No -Bleeding Controlled with Pressure -Offloading No -Treatment Response Procedure Tolerated Well #14 R medial ankle -Time 08:49 -Correct Patient Yes No -Correct Side, Site, Position Yes No -Correct Procedure Yes No -Procedure Performed Yes No -Type of Procedure Debridement -Clinical Debridement Subcutaneous -Post Debridement Size (cm) - Length 2.1 -Post Debridement Size (cm) - Width 0.5 -Post Debridement Size (cm) - Depth 0.2 -Total Square Cm 1.05 -Wound/Ulcer Outcome Not Healed Not Healed -Ulcer Cleansing Rinsed/ Irrigated with Saline -Foul Odor after Cleansing No -Bioengineered Tissue Yes -Type of bioengineered Tissue EPIFIX -Expiration Date 04/22/24 -Product Lot Number [id number] -Percent Used 100 -Saline Lot Number [id number] -Bleeding Controlled with Pressure -Offloading No -Treatment Response Procedure Tolerated Well #11 RIGHT MEDIAL FOOT -Time 08:50 -Correct Patient Yes No -Correct Side, Site, Position Yes No -Correct Procedure Yes No -Procedure Performed Yes No -Type of Procedure Debridement -Clinical Debridement Subcutaneous -Post Debridement Size (cm) - Length 2.1 -Post Debridement Size (cm) - Width 1.1 -Post Debridement Size (cm) - Depth 0.2 -Total Square Cm 2.31 -Wound/Ulcer Outcome Not Healed Not Healed -Ulcer Cleansing Rinsed/ Irrigated with Saline -Foul Odor after Cleansing No -Bioengineered Tissue Yes -Type of bioengineered Tissue EPIFIX -Expiration Date 04/22/24 -Product Lot Number [id number] -Percent Used 100 -Saline Lot Number [id number] -Bleeding Controlled with Pressure -Offloading No -Treatment Response Procedure Tolerated Well #6 POSTERIOR LLE -Time 08:51 -Correct Patient Yes No -Correct Side, Site, Position Yes No -Correct Procedure Yes No -Procedure Performed Yes No -Type of Procedure Debridement -Clinical Debridement Subcutaneous -Post Debridement Size (cm) - Length 5.1 -Post Debridement Size (cm) - Width 1.1 -Post Debridement Size (cm) - Depth 0.2 -Total Square Cm 5.61 -Wound/Ulcer Outcome Not Healed Not Healed -Ulcer Cleansing Rinsed/ Irrigated with Saline -Foul Odor after Cleansing No -Bioengineered Tissue No -Bleeding Controlled with Pressure -Offloading No -Treatment Response Procedure Tolerated Well #4 POSTERIOR RLE -Time 08:51 -Correct Patient Yes No -Correct Side, Site, Position Yes No -Correct Procedure Yes No -Procedure Performed Yes No -Type of Procedure Debridement -Clinical Debridement Subcutaneous -Post Debridement Size (cm) - Length 12.1 -Post Debridement Size (cm) - Width 3 -Post Debridement Size (cm) - Depth 0.4 -Total Square Cm 36.3 -Wound/Ulcer Outcome Not Healed Not Healed -Ulcer Cleansing Rinsed/ Irrigated with Saline -Foul Odor after Cleansing No -Bioengineered Tissue No -Bleeding Controlled with Pressure -Offloading No -Treatment Response Procedure Tolerated Well #1 RIGHT GRT TOE/2ND TOE WEB SPACE -Time 08:53 -Correct Patient Yes No -Correct Side, Site, Position Yes No -Correct Procedure Yes No -Procedure Performed Yes No -Type of Procedure Debridement -Clinical Debridement Subcutaneous -Post Debridement Size (cm) - Length 0.1 -Post Debridement Size (cm) - Width 0.1 -Post Debridement Size (cm) - Depth 0.1 -Total Square Cm 0.01 -Wound/Ulcer Outcome Not Healed Not Healed -Ulcer Cleansing Rinsed/ Irrigated with Saline -Foul Odor after Cleansing No -Bioengineered Tissue No -Bleeding Controlled with Pressure -Offloading No -Treatment Response Procedure Tolerated Well Pain Scale: 0-10 Numeric Is Patient Pain Free? Yes Yes No debridement was completed today - advanced wound healing product is incorporating in after surgery last week Assessment/Plan Active Problems (Last Updated 09/28/18 @ 12:41 by Geraldine Steele) Non-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) Type 2 diabetes mellitus with foot ulcer (Chronic) Ulcer of right lower extremity with fat layer exposed (Chronic) Type 2 diabetes mellitus with diabetic polyneuropathy (Chronic) Vasculitis (Chronic) Tobacco dependence due to cigarettes (Chronic) Ulcer of right lower extremity with fat layer exposed (Chronic) Ulcer of left lower extremity with fat layer exposed (Chronic) Type 2 diabetes mellitus with diabetic polyneuropathy (Chronic) Malnutrition (Chronic) Assessment: -Now status post operating room excisional subcutaneous and tendon debridements to bilateral legs and right foot with additional application of advanced wound healing products to bilateral posterior lower legs--no infection and stable today (incorporating well). 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 - previous bilateral leg fasciotomies and debridements and irrigation performed previously now with right and left leg ulcers with fat and tendon layers exposed. -diabetic neuropathy. -malnutrition suspected. 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 -delayed healing. -gait impairment and fall risk. -other comorbidities. -Continued smoking habits Plan: I reviewed and discussed his case today. His surgical site was evaluated and the advanced wound healing product appears to be incorporating well. This is stable. A secondary dressing was applied and he was advised to change the secondary dressing every 4 days with dry gauze, Kerlix, and Joao wrap. His will help him with this. He has demonstrated significant delays in healing under his prior comprehensive wound healing plan. He was reassured no local or systemic signs of illness is suspected today. To change the other ulcer sites dressings daily with hydrogel bilateral. To continue increased protein intake with nutritional supplementation. To continue glycemic control. He had a previous arterial Doppler scheduled with Dr. Morgan's staff on August 02, 2018 and overall perfusion was confirmed; additional intervention or workup was not recommended. It is also noted that he did have venous Doppler performed with reflux evaluation. He did not have evidence of deep venous thrombosis or venous insufficiency at that time; the vessels were compressible. I recommend he sustained from smoking and alcohol activities to optimize healing as well. This is discussed at length again today and he defers smoking cessation referral program. He decreased his habits from 20 cigarettes a day to 10 and I encouraged him to strive for 5 or less. Prior workup summary: His workup for vasculitis and underlying autoimmune disorder has been completed. A punch biopsy was sent during his last surgical intervention on June 10 and this demonstrated inflammatory changes without malignancy. He had initial screening labs and so far he has a negative RA titer, HL of the 27, KEVIN, anti-CCP, and rheumatoid factor. Several his antibody screenings were not reportable. Hyperbaric oxygen therapy was recommended and it is noted his ejection fraction was most recently 50%. He refuses at this time. . I answered his questions. To return to the wound healing center in 2 weeks. To call sooner if he has any questions or concerns.
== END 2019-11-21 23:59 ==
LOC: WC 08:00
PROVIDERS: Family Provider Family Medicine; PCP Family Medicine; Visit Provider Podiatrist
DX: E11.621 Type 2 diabetes mellitus with foot ulcer (principal); E11.622 Type 2 diabetes mellitus with other skin ulcer; E11.42 Type 2 diabetes mellitus with diabetic polyneuropathy; L97.822 Non-pressure chronic ulcer of other part of left lower leg with fat layer exposed; L97.812 Non-pressure chronic ulcer of other part of right lower leg with fat layer exposed; L97.412 Non-pressure chronic ulcer of right heel and midfoot with fat layer exposed; L97.512 Non-pressure chronic ulcer of other part of right foot with fat layer exposed; F17.210 Nicotine dependence, cigarettes, uncomplicated
CPT/HCPCS: 11042; 11045; 15275; 99215; Q4186; G0463

== ENCOUNTER 2019-12-20 08:00 | Outpatient (RCR) | payer MEDICARE, SELFPAY ==
[2019-11-22 00:26] VITALS: BP 133/103; PULSE 96; RESP 22; TEMP 35.9; BMI 32.3
[2019-11-24 13:06] VITALS: BP 128/74; PULSE 105; RESP 16; TEMP 36.8; BMI 32.3
--- NOTE | 2019-11-24 13:32 | PCM.WC.PN ---
(1) Type 2 diabetes mellitus with foot ulcer Status: Chronic Current Visit: Yes Code(s): E11.621 - Type 2 diabetes mellitus with foot ulcer; L97.509 - Non-pressure chronic ulcer of other part of unspecified foot with unspecified severity (2) Ulcer of right foot with fat layer exposed Status: Chronic Current Visit: Yes Code(s): L97.512 - Non-pressure chronic ulcer of other part of right foot with fat layer exposed (3) Ulcer of right lower extremity with fat layer exposed Status: Chronic Current Visit: Yes Code(s): L97.912 - Non-pressure chronic ulcer of unspecified part of right lower leg with fat layer exposed (4) Ulcer of left lower extremity with fat layer exposed Status: Chronic Current Visit: Yes Code(s): L97.922 - Non-pressure chronic ulcer of unspecified part of left lower leg with fat layer exposed (5) Type 2 diabetes mellitus with diabetic polyneuropathy Status: Chronic Current Visit: Yes Code(s): E11.42 - Type 2 diabetes mellitus with diabetic polyneuropathy Type of Wound Date of Service: 11/24/19 Chief Complaint: right and left Leg ulcers and right foot ulcers History of Wound: Mr. Arguello is a 64-year-old male with multiple comorbidities follows up for delayed healing ulcers to the right foot as well as bilateral legs. These are chronic and he has had previous remote surgical intervention. He also had operating room debridement performed last on on November 03, 2019 bilateral lower extremities to all bilateral ulcer sites with additional application of advanced wound healing products including amnio fill and epi-cord to bilateral posterior legs and right foot. He denies chills, fever, nausea, or vomiting. He presents today with his . He refuses hyperbaric oxygen therapy treatment. He denies odor or redness. He relates complete resolution of pain. Progress of Wound: improving bilateral - Physical Exam Vital Signs Temp Pulse Resp BP 98.2 F 105 H 16 128/74 H 11/24/19 13:06 11/24/19 13:06 11/24/19 13:06 11/24/19 13:06 General: Alert, Oriented x3, Cooperative, No apparent distress Extremities: No cyanosis, Capillary Refill Less than 3 Seconds, No Calf Tenderness, Diminished Peripheral Pulses, Edema Skin: Ulcer/ Wound - No purulence, erythema, string, odor, infection. There is significant peripheral epithelialization noted to the recent surgical sites with improvement of granulation base. His adjacent skin continues to remodel and is overall hairless and atrophic. Wound Measurements and Assessment WC - Nurse 1 - General Ulcer Measurement Start: 11/24/19 13:06 Freq: Status: Active Protocol: Activity Type Activity Date Activity User E-Sign Co-Sign Detail Recorded Client Recorded Date Recorded By Document 11/24/19 13:06 MW [id number] 11/24/19 13:15 MW 11/24/19 13:06 Wound Center Nurse 1 [Ulcer Assessment] #14 R medial ankle -Combined with other wound No -Current Size (cm) - Length 1.0 -Current Size (cm) - Width 0.6 -Current Size (cm) - Depth 0.1 -Total Square Cm 0.60 -Photo Taken No -Epithelialization None Present -Tunneling No -Undermining/Tunneling No -Circular Undermining No -Exudate Amt Small -Exudate Type Serosanguineous -Wound Margin Flat & Intact -Granulation Amt Large (67-100%) -Granulation Quality Pale -Slough/Fibrin Yes -Necrosis Amt Small (1-33%) -Necrotic Tissue Type Adherent Slough -Structure Exposed N/A -Texture (Lisa-wound Skin Appearance) Assessed, Scarring -Moisture (Lisa-wound Skin Appearance Assessed,Dry/ ) Scaly -Color (Lisa-wound Skin Appearance) Assessed, Hemosiderin Staining -Temperature (Lisa-wound Skin No Abnormality Appearance) (Pt Warm) -Ulcer Cleansing soap and water -Foul Odor after Cleansing No -Anesthetic Used 5% Lidocaine Gel #11 RIGHT MEDIAL FOOT -Combined with other wound No -Current Size (cm) - Length 1.8 -Current Size (cm) - Width 0.8 -Current Size (cm) - Depth 0.2 -Total Square Cm 1.44 -Photo Taken No -Epithelialization None Present -Tunneling No -Undermining/Tunneling No -Circular Undermining No -Exudate Amt Small -Exudate Type Serosanguineous -Wound Margin Flat & Intact -Granulation Amt None Present (0 %) -Granulation Quality N/A -Slough/Fibrin Yes -Necrosis Amt Large (67-100%) -Necrotic Tissue Type Adherent Slough -Structure Exposed N/A -Texture (Lisa-wound Skin Appearance) Assessed, Scarring -Moisture (Lisa-wound Skin Appearance Assessed,Dry/ ) Scaly -Color (Lisa-wound Skin Appearance) Assessed, Hemosiderin Staining -Temperature (Lisa-wound Skin No Abnormality Appearance) (Pt Warm) -Tenderness on Palpation (Lisa-wound No Skin Appearance) -Ulcer Cleansing soap and water -Foul Odor after Cleansing No -Anesthetic Used 5% Lidocaine Gel #6 POSTERIOR LLE -Combined with other wound No -Current Size (cm) - Length 5.7 -Current Size (cm) - Width 1.0 -Current Size (cm) - Depth 0.3 -Total Square Cm 5.70 -Photo Taken No -Epithelialization None Present -Tunneling No -Undermining/Tunneling No -Circular Undermining No -Exudate Amt Small -Exudate Type Serosanguineous -Wound Margin Flat & Intact -Granulation Amt None Present (0 %) -Granulation Quality N/A -Slough/Fibrin Yes -Necrosis Amt Large (67-100%) -Necrotic Tissue Type Adherent Slough -Structure Exposed N/A -Texture (Lisa-wound Skin Appearance) Assessed, Scarring -Moisture (Lisa-wound Skin Appearance Assessed,Dry/ ) Scaly -Color (Lisa-wound Skin Appearance) Assessed, Hemosiderin Staining -Temperature (Lisa-wound Skin No Abnormality Appearance) (Pt Warm) -Tenderness on Palpation (Lisa-wound No Skin Appearance) -Ulcer Cleansing soap and water -Foul Odor after Cleansing No -Anesthetic Used 5% Lidocaine Gel #4 POSTERIOR RLE -Combined with other wound No -Current Size (cm) - Length 11.5 -Current Size (cm) - Width 3.0 -Current Size (cm) - Depth 0.3 -Total Square Cm 34.50 -Photo Taken No -Epithelialization None Present -Tunneling No -Undermining/Tunneling No -Circular Undermining No -Exudate Amt Small -Exudate Type Serosanguineous -Wound Margin Flat & Intact -Granulation Amt None Present (0 %) -Granulation Quality N/A -Slough/Fibrin Yes -Necrosis Amt Large (67-100%) -Structure Exposed N/A -Texture (Lisa-wound Skin Appearance) Assessed, Scarring -Moisture (Lisa-wound Skin Appearance Assessed,Dry/ ) Scaly -Color (Lisa-wound Skin Appearance) Assessed, Hemosiderin Staining -Temperature (Lisa-wound Skin No Abnormality Appearance) (Pt Warm) -Tenderness on Palpation (Lisa-wound No Skin Appearance) -Ulcer Cleansing soap and water -Foul Odor after Cleansing No -Anesthetic Used 5% Lidocaine Gel #1 RIGHT GRT TOE/2ND TOE WEB SPACE -Combined with other wound No -Current Size (cm) - Length 0.1 -Current Size (cm) - Width 0.1 -Current Size (cm) - Depth 0.1 -Total Square Cm 0.01 -Photo Taken No -Epithelialization None Present -Tunneling No -Undermining/Tunneling No -Circular Undermining No -Wound Margin Indistinct, Non -Visible -Granulation Amt None Present (0 %) -Granulation Quality N/A -Slough/Fibrin Yes -Necrosis Amt Small (1-33%) -Necrotic Tissue Type Adherent Slough -Structure Exposed N/A -Texture (Lisa-wound Skin Appearance) Assessed, Scarring -Moisture (Lisa-wound Skin Appearance No Abnormality, ) Assessed -Color (Lisa-wound Skin Appearance) No Abnormality, Assessed -Temperature (Lisa-wound Skin No Abnormality Appearance) (Pt Warm) -Tenderness on Palpation (Lisa-wound No Skin Appearance) -Ulcer Cleansing soap and water -Foul Odor after Cleansing No -Anesthetic Used 5% Lidocaine Gel [Edema Assessment] -Lower Limb Edema Present No WC - Nurse 2 - General Ulcer CM Notes Start: 11/24/19 13:06 Freq: Status: Active Protocol: Activity Type Activity Date Activity User E-Sign Co-Sign Detail Recorded Client Recorded Date Recorded By Document 11/24/19 13:16 JAMAL [id number] 11/24/19 13:21 JAMAL 11/24/19 13:16 Wound Center Nurse 2 [Procedure/Treatment] #14 R medial ankle -Time 13:17 -Correct Patient Yes -Correct Side, Site, Position Yes -Correct Procedure Yes -Procedure Performed Yes -Type of Procedure Debridement -Clinical Debridement Subcutaneous -Post Debridement Size (cm) - Length 1.1 -Post Debridement Size (cm) - Width 0.6 -Post Debridement Size (cm) - Depth 0.2 -Total Square Cm 0.66 -Wound/Ulcer Outcome Not Healed -Ulcer Cleansing Rinsed/ Irrigated with Saline -Foul Odor after Cleansing No -Bioengineered Tissue No -Bleeding Controlled with Pressure -Offloading No -Treatment Response Procedure Tolerated Well #11 RIGHT MEDIAL FOOT -Time 13:17 -Correct Patient Yes -Correct Side, Site, Position Yes -Correct Procedure Yes -Procedure Performed Yes -Type of Procedure Debridement -Clinical Debridement Subcutaneous -Post Debridement Size (cm) - Length 1.8 -Post Debridement Size (cm) - Width 1 -Post Debridement Size (cm) - Depth 0.2 -Total Square Cm 1.8 -Wound/Ulcer Outcome Not Healed -Ulcer Cleansing Rinsed/ Irrigated with Saline -Foul Odor after Cleansing No -Bioengineered Tissue No -Bleeding Controlled with Pressure -Offloading No -Treatment Response Procedure Tolerated Well #6 POSTERIOR LLE -Time 13:17 -Correct Patient Yes -Correct Side, Site, Position Yes -Correct Procedure Yes -Procedure Performed Yes -Type of Procedure Debridement -Clinical Debridement Subcutaneous -Post Debridement Size (cm) - Length 5.8 -Post Debridement Size (cm) - Width 1 -Post Debridement Size (cm) - Depth 0.3 -Total Square Cm 5.8 -Wound/Ulcer Outcome Not Healed -Ulcer Cleansing Rinsed/ Irrigated with Saline -Foul Odor after Cleansing No -Bioengineered Tissue No -Bleeding Controlled with Pressure -Offloading No -Treatment Response Procedure Tolerated Well #4 POSTERIOR RLE -Time 13:18 -Correct Patient Yes -Correct Side, Site, Position Yes -Correct Procedure Yes -Procedure Performed Yes -Type of Procedure Debridement -Clinical Debridement Subcutaneous -Post Debridement Size (cm) - Length 11.5 -Post Debridement Size (cm) - Width 3.1 -Post Debridement Size (cm) - Depth 0.3 -Total Square Cm 35.65 -Wound/Ulcer Outcome Not Healed -Ulcer Cleansing Rinsed/ Irrigated with Saline -Foul Odor after Cleansing No -Bioengineered Tissue No -Bleeding Controlled with Pressure -Offloading No -Treatment Response Procedure Tolerated Well #1 RIGHT GRT TOE/2ND TOE WEB SPACE -Correct Patient No -Correct Side, Site, Position No -Correct Procedure No -Procedure Performed No -Post Debridement Size (cm) - Length 0 -Post Debridement Size (cm) - Width 0 -Post Debridement Size (cm) - Depth 0 -Total Square Cm 0 -Wound/Ulcer Outcome Healed- Epithelialized [See Physician Procedure note for Specifics] Pain Scale: 0-10 Numeric [Pain] -Is Patient Pain Free? Yes Musculoskeletal: No Tenderness to Palpation of Joints or Extremities, Muscle Wasting, - - Second ray resection right Neurological: - - Lack of normal epicritic sensation light touch is consistent with neuropathy status Psych/Mental Status: Normal Affect, Appropriate Debridement Note Post-Debridement Measurements/Treatment WC - Nurse 2 - General Ulcer CM Notes Start: 11/24/19 13:06 Freq: Status: Active Protocol: Activity Type Activity Date Activity User E-Sign Co-Sign Detail Recorded Client Recorded Date Recorded By Document 11/24/19 13:16 JAMAL [id number] 11/24/19 13:21 JAMAL 11/24/19 13:16 Wound Center Nurse 2 #14 R medial ankle -Time 13:17 -Correct Patient Yes -Correct Side, Site, Position Yes -Correct Procedure Yes -Procedure Performed Yes -Type of Procedure Debridement -Clinical Debridement Subcutaneous -Post Debridement Size (cm) - Length 1.1 -Post Debridement Size (cm) - Width 0.6 -Post Debridement Size (cm) - Depth 0.2 -Total Square Cm 0.66 -Wound/Ulcer Outcome Not Healed -Ulcer Cleansing Rinsed/ Irrigated with Saline -Foul Odor after Cleansing No -Bioengineered Tissue No -Bleeding Controlled with Pressure -Offloading No -Treatment Response Procedure Tolerated Well #11 RIGHT MEDIAL FOOT -Time 13:17 -Correct Patient Yes -Correct Side, Site, Position Yes -Correct Procedure Yes -Procedure Performed Yes -Type of Procedure Debridement -Clinical Debridement Subcutaneous -Post Debridement Size (cm) - Length 1.8 -Post Debridement Size (cm) - Width 1 -Post Debridement Size (cm) - Depth 0.2 -Total Square Cm 1.8 -Wound/Ulcer Outcome Not Healed -Ulcer Cleansing Rinsed/ Irrigated with Saline -Foul Odor after Cleansing No -Bioengineered Tissue No -Bleeding Controlled with Pressure -Offloading No -Treatment Response Procedure Tolerated Well #6 POSTERIOR LLE -Time 13:17 -Correct Patient Yes -Correct Side, Site, Position Yes -Correct Procedure Yes -Procedure Performed Yes -Type of Procedure Debridement -Clinical Debridement Subcutaneous -Post Debridement Size (cm) - Length 5.8 -Post Debridement Size (cm) - Width 1 -Post Debridement Size (cm) - Depth 0.3 -Total Square Cm 5.8 -Wound/Ulcer Outcome Not Healed -Ulcer Cleansing Rinsed/ Irrigated with Saline -Foul Odor after Cleansing No -Bioengineered Tissue No -Bleeding Controlled with Pressure -Offloading No -Treatment Response Procedure Tolerated Well #4 POSTERIOR RLE -Time 13:18 -Correct Patient Yes -Correct Side, Site, Position Yes -Correct Procedure Yes -Procedure Performed Yes -Type of Procedure Debridement -Clinical Debridement Subcutaneous -Post Debridement Size (cm) - Length 11.5 -Post Debridement Size (cm) - Width 3.1 -Post Debridement Size (cm) - Depth 0.3 -Total Square Cm 35.65 -Wound/Ulcer Outcome Not Healed -Ulcer Cleansing Rinsed/ Irrigated with Saline -Foul Odor after Cleansing No -Bioengineered Tissue No -Bleeding Controlled with Pressure -Offloading No -Treatment Response Procedure Tolerated Well #1 RIGHT GRT TOE/2ND TOE WEB SPACE -Correct Patient No -Correct Side, Site, Position No -Correct Procedure No -Procedure Performed No -Post Debridement Size (cm) - Length 0 -Post Debridement Size (cm) - Width 0 -Post Debridement Size (cm) - Depth 0 -Total Square Cm 0 -Wound/Ulcer Outcome Healed- Epithelialized Pain Scale: 0-10 Numeric Is Patient Pain Free? Yes Wound debrided: medial midfoot, medial rearfoot, distal posterior leg/heel Laterality: Right Wound Grade/Stage: grade 3 Type of Debridement: Excisional debridement Anesthesia Used: 5% Lidocaine Gel Depth: in the subcutaneous layer Percentage of wound debrided: 100 Instrument Used: #15 blade Tissue Removed: fibrous, devitalized subcutaneous, biofilm, slough Severity: Fat Layer Exposed Amount of bleeding with debridement: Mild Bleeding Controlled with: Pressure Patient tolerated procedure well - Additional Wound Wound debrided: posterior leg Laterality: Left Wound Grade/Stage: grade 2 Type of Debridement: Excisional debridement, Selective debridement Anesthesia Used: 5% Lidocaine Gel Depth: in the subcutaneous layer Percentage of wound debrided: 100 Instrument Used: #15 blade Tissue Removed: fibrous, devitalized subcutaneous, biofilm, slough Severity: Fat Layer Exposed Amount of bleeding with debridement: Mild Bleeding Controlled with: Pressure Patient tolerated procedure: Patient tolerated procedure well Assessment/Plan Active Problems (Last Updated 09/28/18 @ 12:41 by Geraldine Steele) Type 2 diabetes mellitus with foot ulcer (Chronic) Ulcer of right foot with fat layer exposed (Chronic) Ulcer of right lower extremity with fat layer exposed (Chronic) Ulcer of left lower extremity with fat layer exposed (Chronic) Type 2 diabetes mellitus with diabetic polyneuropathy (Chronic) Assessment: -Now status post operating room excisional subcutaneous and tendon debridements to bilateral legs and right foot with additional application of advanced wound healing products to bilateral posterior lower legs--no infection and stable today (incorporating well). 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 -previous bilateral leg fasciotomies and debridements and irrigation performed previously now with right and left leg ulcers with fat and tendon layers exposed. -diabetic neuropathy. -malnutrition suspected. 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 -delayed healing. -gait impairment and fall risk. -other comorbidities. -Continued smoking habits Plan: I reviewed and discussed his case today. His surgical site was evaluated and the advanced wound healing product appears to be incorporating well. This is stable. Debridement was performed as noted in the clinical panel. To change daily with [employer]. Advanced wound healing product approval will be confirmed for application next week after additional debridement. I recommend epi-fix application. He has demonstrated significant delays in healing under his prior comprehensive wound healing plan. He was reassured no local or systemic signs of illness is suspected today. To continue increased protein intake with nutritional supplementation. To continue glycemic control. He had a previous arterial Doppler scheduled with Dr. Morgan's staff on August 02, 2018 and overall perfusion was confirmed; additional intervention or workup was not recommended. It is also noted that he did have venous Doppler performed with reflux evaluation. He did not have evidence of deep venous thrombosis or venous insufficiency at that time; the vessels were compressible. I recommend he sustained from smoking and alcohol activities to optimize healing as well. This is discussed at length again today and he defers smoking cessation referral program. He decreased his habits from 20 cigarettes a day to 10 and I encouraged him to strive for 5 or less. Prior workup summary: His workup for vasculitis and underlying autoimmune disorder has been completed. A punch biopsy was sent during his last surgical intervention on June 10 and this demonstrated inflammatory changes without malignancy. He had initial screening labs and so far he has a negative RA titer, HL of the 27, KEVIN, anti-CCP, and rheumatoid factor. Several his antibody screenings were not reportable. Hyperbaric oxygen therapy was recommended and it is noted his ejection fraction was most recently 50%. He refuses at this time. . I answered his questions. To return to the wound healing center in 1 week. To call sooner if he has any questions or concerns.
[2019-11-29 08:11] VITALS: BP 127/87; PULSE 91; RESP 18; TEMP 35.5; BMI 32.3
--- NOTE | 2019-11-29 09:10 | PCM.WC.PN ---
(1) Type 2 diabetes mellitus with foot ulcer Status: Chronic Current Visit: Yes Code(s): E11.621 - Type 2 diabetes mellitus with foot ulcer; L97.509 - Non-pressure chronic ulcer of other part of unspecified foot with unspecified severity (2) Ulcer of right foot with fat layer exposed Status: Chronic Current Visit: Yes Code(s): L97.512 - Non-pressure chronic ulcer of other part of right foot with fat layer exposed (3) Ulcer of right lower extremity with fat layer exposed Status: Chronic Current Visit: Yes Code(s): L97.912 - Non-pressure chronic ulcer of unspecified part of right lower leg with fat layer exposed (4) Ulcer of left lower extremity with fat layer exposed Status: Chronic Current Visit: Yes Code(s): L97.922 - Non-pressure chronic ulcer of unspecified part of left lower leg with fat layer exposed (5) Type 2 diabetes mellitus with diabetic polyneuropathy Status: Chronic Current Visit: Yes Code(s): E11.42 - Type 2 diabetes mellitus with diabetic polyneuropathy (6) Tobacco dependence due to cigarettes Status: Chronic Current Visit: Yes Code(s): F17.210 - Nicotine dependence, cigarettes, uncomplicated (7) Localized edema Status: Chronic Current Visit: Yes Code(s): R60.0 - Localized edema (8) Malnutrition Status: Chronic Current Visit: Yes Code(s): E46 - Unspecified protein-calorie malnutrition Type of Wound Date of Service: 11/29/19 Chief Complaint: right and left Leg ulcers and right foot ulcers. new right leg ulcer History of Wound: Mr. Arguello is a 64-year-old male with multiple comorbidities follows up for delayed healing ulcers to the right foot as well as bilateral legs. These are chronic and he has had previous remote surgical intervention. He also had operating room debridement performed last on on November 03, 2019 bilateral lower extremities to all bilateral ulcer sites with additional application of advanced wound healing products including amnio fill and epi-cord to bilateral posterior legs and right foot. He denies chills, fever, nausea, or vomiting. He presents today with his . He refuses hyperbaric oxygen therapy treatment. He denies odor or redness. He relates complete resolution of pain; 2/. He relates he bumped his leg 2 days ago and has a new wound to his right leg. He denies pain, redness, or odor. Progress of Wound: improving bilateral - Physical Exam Vital Signs Temp Pulse Resp BP 95.9 F L 91 18 127/87 H 11/29/19 08:11 11/29/19 08:11 11/29/19 08:11 11/29/19 08:11 General: Alert, Oriented x3, Cooperative, No apparent distress Extremities: No cyanosis, Capillary Refill Less than 3 Seconds, No Calf Tenderness, Diminished Peripheral Pulses, Edema Skin: Ulcer/ Wound - No purulence, erythema, streaking, odor, or infection. The peripheral skin is hairless and atrophic. He does also have a new skin discontinuity with pale granular base to the anterior right leg. There is no deep tissue or necrosis noted. Wound Measurements and Assessment WC - Nurse 1 - General Ulcer Measurement Start: 11/24/19 13:06 Freq: Status: Active Protocol: Activity Type Activity Date Activity User E-Sign Co-Sign Detail Recorded Client Recorded Date Recorded By Document 11/29/19 08:11 MW [id number] 11/29/19 08:39 MW 11/29/19 08:11 Wound Center Nurse 1 [Ulcer Assessment] #14 R medial ankle -Combined with other wound No -Current Size (cm) - Length 2 -Current Size (cm) - Width 0.6 -Current Size (cm) - Depth 0.1 -Total Square Cm 1.2 -Tunneling No -Undermining/Tunneling No -Circular Undermining No -Exudate Amt Small -Exudate Type Serosanguineous -Wound Margin Flat & Intact -Granulation Amt Small (1-33%) -Granulation Quality [place] -Slough/Fibrin Yes -Necrosis Amt Large (67-100%) -Necrotic Tissue Type Adherent Slough -Structure Exposed N/A -Texture (Lisa-wound Skin Appearance) Assessed -Moisture (Lisa-wound Skin Appearance Assessed,Dry/ ) Scaly -Color (Lisa-wound Skin Appearance) Assessed -Temperature (Lisa-wound Skin No Abnormality Appearance) (Pt Warm) -Tenderness on Palpation (Lisa-wound No Skin Appearance) -Ulcer Cleansing Wound Cleanser -Foul Odor after Cleansing No -Anesthetic Used 4% Lidocaine Solution #11 RIGHT MEDIAL FOOT -Combined with other wound No -Current Size (cm) - Length 1.6 -Current Size (cm) - Width 0.8 -Current Size (cm) - Depth 0.1 -Total Square Cm 1.28 -Tunneling No -Undermining/Tunneling No -Circular Undermining No -Exudate Amt Small -Exudate Type Serosanguineous -Wound Margin Flat & Intact -Granulation Amt Small (1-33%) -Granulation Quality Red -Slough/Fibrin Yes -Necrosis Amt Large (67-100%) -Necrotic Tissue Type Adherent Slough -Structure Exposed N/A -Texture (Lisa-wound Skin Appearance) Assessed -Moisture (Lisa-wound Skin Appearance Assessed,Dry/ ) Scaly -Color (Lisa-wound Skin Appearance) Assessed -Temperature (Lisa-wound Skin No Abnormality Appearance) (Pt Warm) -Tenderness on Palpation (Lisa-wound No Skin Appearance) -Ulcer Cleansing Wound Cleanser -Foul Odor after Cleansing No -Anesthetic Used 4% Lidocaine Solution #6 POSTERIOR LLE -Combined with other wound No -Current Size (cm) - Length 6 -Current Size (cm) - Width 1 -Current Size (cm) - Depth 0.2 -Total Square Cm 6 -Tunneling No -Undermining/Tunneling No -Circular Undermining No -Exudate Amt Small -Exudate Type Serosanguineous -Wound Margin Flat & Intact -Granulation Amt Small (1-33%) -Granulation Quality [place] -Slough/Fibrin Yes -Necrosis Amt Medium (34-66%) -Necrotic Tissue Type Adherent Slough -Structure Exposed N/A -Texture (Lisa-wound Skin Appearance) Assessed -Moisture (Lisa-wound Skin Appearance Dry/Scaly ) -Color (Lisa-wound Skin Appearance) Assessed -Temperature (Lisa-wound Skin No Abnormality Appearance) (Pt Warm) -Tenderness on Palpation (Lisa-wound No Skin Appearance) -Ulcer Cleansing Wound Cleanser -Foul Odor after Cleansing No -Anesthetic Used 4% Lidocaine Solution #4 POSTERIOR RLE -Combined with other wound No -Current Size (cm) - Length 12.2 -Current Size (cm) - Width 2.5 -Current Size (cm) - Depth 0.2 -Total Square Cm 30.50 -Tunneling No -Undermining/Tunneling No -Circular Undermining No -Exudate Amt Small -Exudate Type Serosanguineous -Wound Margin Flat & Intact -Granulation Amt Medium (34-66%) -Granulation Quality [place] -Slough/Fibrin Yes -Necrosis Amt Medium (34-66%) -Necrotic Tissue Type Adherent Slough -Structure Exposed N/A -Texture (Lisa-wound Skin Appearance) Assessed -Moisture (Lisa-wound Skin Appearance Dry/Scaly ) -Color (Lisa-wound Skin Appearance) Assessed -Temperature (Lisa-wound Skin No Abnormality Appearance) (Pt Warm) -Tenderness on Palpation (Lisa-wound No Skin Appearance) -Ulcer Cleansing Wound Cleanser -Foul Odor after Cleansing No -Anesthetic Used 4% Lidocaine Solution [Edema Assessment] -Lower Limb Edema Present Yes -Right Calf (cm) 37.2 -Right Ankle (cm) 21.5 -Left Calf (cm) 36.8 -Left Ankle (cm) 20.9 WC - Nurse 2 - General Ulcer CM Notes Start: 11/24/19 13:06 Freq: Status: Active Protocol: Activity Type Activity Date Activity User E-Sign Co-Sign Detail Recorded Client Recorded Date Recorded By Document 11/29/19 08:48 JAMAL [id number] 11/29/19 08:52 JAMAL 11/29/19 08:48 Wound Center Nurse 2 [Procedure/Treatment] 17-right [place] -Time 08:52 -Correct Patient Yes -Correct Side, Site, Position Yes -Correct Procedure Yes -Procedure Performed Yes -Type of Procedure Debridement -Clinical Debridement Subcutaneous -Post Debridement Size (cm) - Length 0.7 -Post Debridement Size (cm) - Width 0.6 -Post Debridement Size (cm) - Depth 0.1 -Total Square Cm 0.42 -Wound/Ulcer Outcome Not Healed -Ulcer Cleansing Rinsed/ Irrigated with Saline -Foul Odor after Cleansing No -Bioengineered Tissue No -Bleeding Controlled with Pressure -Offloading No -Treatment Response Procedure Tolerated Well #14 R medial ankle -Time 08:49 -Correct Patient Yes -Correct Side, Site, Position Yes -Correct Procedure Yes -Procedure Performed Yes -Type of Procedure Debridement -Clinical Debridement Subcutaneous -Post Debridement Size (cm) - Length 2 -Post Debridement Size (cm) - Width 0.7 -Post Debridement Size (cm) - Depth 0.1 -Total Square Cm 1.4 -Wound/Ulcer Outcome Not Healed -Ulcer Cleansing Rinsed/ Irrigated with Saline -Foul Odor after Cleansing No -Bioengineered Tissue No -Bleeding Controlled with Pressure -Offloading No -Treatment Response Procedure Tolerated Well #11 RIGHT MEDIAL FOOT -Time 08:50 -Correct Patient Yes -Correct Side, Site, Position Yes -Correct Procedure Yes -Procedure Performed Yes -Type of Procedure Debridement -Clinical Debridement Subcutaneous -Post Debridement Size (cm) - Length 1.6 -Post Debridement Size (cm) - Width 0.9 -Post Debridement Size (cm) - Depth 0.1 -Total Square Cm 1.44 -Wound/Ulcer Outcome Not Healed -Ulcer Cleansing Rinsed/ Irrigated with Saline -Foul Odor after Cleansing No -Bioengineered Tissue No -Bleeding Controlled with Pressure -Offloading No -Treatment Response Procedure Tolerated Well #6 POSTERIOR LLE -Time 08:50 -Correct Patient Yes -Correct Side, Site, Position Yes -Correct Procedure Yes -Procedure Performed Yes -Type of Procedure Debridement -Clinical Debridement Subcutaneous -Post Debridement Size (cm) - Length 6.1 -Post Debridement Size (cm) - Width 1 -Post Debridement Size (cm) - Depth 0.2 -Total Square Cm 6.1 -Wound/Ulcer Outcome Not Healed -Ulcer Cleansing Rinsed/ Irrigated with Saline -Foul Odor after Cleansing No -Bioengineered Tissue No -Bleeding Controlled with Pressure -Offloading No -Treatment Response Procedure Tolerated Well #4 POSTERIOR RLE -Time 08:50 -Correct Patient Yes -Correct Side, Site, Position Yes -Correct Procedure Yes -Procedure Performed Yes -Type of Procedure Debridement -Clinical Debridement Subcutaneous -Post Debridement Size (cm) - Length 12.2 -Post Debridement Size (cm) - Width 2.6 -Post Debridement Size (cm) - Depth 0.3 -Total Square Cm 31.72 -Wound/Ulcer Outcome Not Healed -Ulcer Cleansing Rinsed/ Irrigated with Saline -Foul Odor after Cleansing No -Bioengineered Tissue No -Bleeding Controlled with Pressure -Offloading No -Treatment Response Procedure Tolerated Well [See Physician Procedure note for Specifics] Pain Scale: 0-10 Numeric [Pain] -Is Patient Pain Free? Yes Musculoskeletal: No Tenderness to Palpation of Joints or Extremities, Muscle Wasting, - - Second ray resection noted and healed Neurological: - - Lack of epicritic sensation light touch is consistent with his neuropathy status Psych/Mental Status: Normal Affect, Appropriate Debridement Note Post-Debridement Measurements/Treatment WC - Nurse 2 - General Ulcer CM Notes Start: 11/24/19 13:06 Freq: Status: Active Protocol: Activity Type Activity Date Activity User E-Sign Co-Sign Detail Recorded Client Recorded Date Recorded By Document 11/24/19 13:16 [id number] 11/24/19 13:21 JF Document 11/29/19 08:48 [id number] 11/29/19 08:52 11/24/19 11/29/19 13:16 08:48 Wound Center Nurse 2 17-right [place] -Time 08:52 -Correct Patient Yes -Correct Side, Site, Position Yes -Correct Procedure Yes -Procedure Performed Yes -Type of Procedure Debridement -Clinical Debridement Subcutaneous -Post Debridement Size (cm) - Length 0.7 -Post Debridement Size (cm) - Width 0.6 -Post Debridement Size (cm) - Depth 0.1 -Total Square Cm 0.42 -Wound/Ulcer Outcome Not Healed -Ulcer Cleansing Rinsed/ Irrigated with Saline -Foul Odor after Cleansing No -Bioengineered Tissue No -Bleeding Controlled with Pressure -Offloading No -Treatment Response Procedure Tolerated Well #14 R medial ankle -Time 13:17 08:49 -Correct Patient Yes Yes -Correct Side, Site, Position Yes Yes -Correct Procedure Yes Yes -Procedure Performed Yes Yes -Type of Procedure Debridement Debridement -Clinical Debridement Subcutaneous Subcutaneous -Post Debridement Size (cm) - Length 1.1 2 -Post Debridement Size (cm) - Width 0.6 0.7 -Post Debridement Size (cm) - Depth 0.2 0.1 -Total Square Cm 0.66 1.4 -Wound/Ulcer Outcome Not Healed Not Healed -Ulcer Cleansing Rinsed/ Rinsed/ Irrigated with Irrigated with Saline Saline -Foul Odor after Cleansing No No -Bioengineered Tissue No No -Bleeding Controlled with Pressure Pressure -Offloading No No -Treatment Response Procedure Procedure Tolerated Well Tolerated Well #11 RIGHT MEDIAL FOOT -Time 13:17 08:50 -Correct Patient Yes Yes -Correct Side, Site, Position Yes Yes -Correct Procedure Yes Yes -Procedure Performed Yes Yes -Type of Procedure Debridement Debridement -Clinical Debridement Subcutaneous Subcutaneous -Post Debridement Size (cm) - Length 1.8 1.6 -Post Debridement Size (cm) - Width 1 0.9 -Post Debridement Size (cm) - Depth 0.2 0.1 -Total Square Cm 1.8 1.44 -Wound/Ulcer Outcome Not Healed Not Healed -Ulcer Cleansing Rinsed/ Rinsed/ Irrigated with Irrigated with Saline Saline -Foul Odor after Cleansing No No -Bioengineered Tissue No No -Bleeding Controlled with Pressure Pressure -Offloading No No -Treatment Response Procedure Procedure Tolerated Well Tolerated Well #6 POSTERIOR LLE -Time 13:17 08:50 -Correct Patient Yes Yes -Correct Side, Site, Position Yes Yes -Correct Procedure Yes Yes -Procedure Performed Yes Yes -Type of Procedure Debridement Debridement -Clinical Debridement Subcutaneous Subcutaneous -Post Debridement Size (cm) - Length 5.8 6.1 -Post Debridement Size (cm) - Width 1 1 -Post Debridement Size (cm) - Depth 0.3 0.2 -Total Square Cm 5.8 6.1 -Wound/Ulcer Outcome Not Healed Not Healed -Ulcer Cleansing Rinsed/ Rinsed/ Irrigated with Irrigated with Saline Saline -Foul Odor after Cleansing No No -Bioengineered Tissue No No -Bleeding Controlled with Pressure Pressure -Offloading No No -Treatment Response Procedure Procedure Tolerated Well Tolerated Well #4 POSTERIOR RLE -Time 13:18 08:50 -Correct Patient Yes Yes -Correct Side, Site, Position Yes Yes -Correct Procedure Yes Yes -Procedure Performed Yes Yes -Type of Procedure Debridement Debridement -Clinical Debridement Subcutaneous Subcutaneous -Post Debridement Size (cm) - Length 11.5 12.2 -Post Debridement Size (cm) - Width 3.1 2.6 -Post Debridement Size (cm) - Depth 0.3 0.3 -Total Square Cm 35.65 31.72 -Wound/Ulcer Outcome Not Healed Not Healed -Ulcer Cleansing Rinsed/ Rinsed/ Irrigated with Irrigated with Saline Saline -Foul Odor after Cleansing No No -Bioengineered Tissue No No -Bleeding Controlled with Pressure Pressure -Offloading No No -Treatment Response Procedure Procedure Tolerated Well Tolerated Well #1 RIGHT GRT TOE/2ND TOE WEB SPACE -Correct Patient No -Correct Side, Site, Position No -Correct Procedure No -Procedure Performed No -Post Debridement Size (cm) - Length 0 -Post Debridement Size (cm) - Width 0 -Post Debridement Size (cm) - Depth 0 -Total Square Cm 0 -Wound/Ulcer Outcome Healed- Epithelialized Pain Scale: 0-10 Numeric Is Patient Pain Free? Yes Yes Wound debrided: medial foot (midfoot), medial foot (hindfoot), posterior lower leg/heel Laterality: Right Wound Grade/Stage: grade 3 Type of Debridement: Excisional debridement Anesthesia Used: 5% Lidocaine Gel Depth: in the subcutaneous layer Percentage of wound debrided: 100 Instrument Used: #15 blade Tissue Removed: fibrous, devitalized subcutaneous, biofilm, slough Severity: Fat Layer Exposed Amount of bleeding with debridement: Mild Bleeding Controlled with: Pressure Patient tolerated procedure well - Additional Wound Wound debrided: anterior leg Laterality: Right Wound Grade/Stage: grade 1 Type of Debridement: Excisional debridement Anesthesia Used: 5% Lidocaine Gel Depth: in the subcutaneous layer Percentage of wound debrided: 100 Instrument Used: #15 blade Tissue Removed: fibrous, devitalized subcutaneous, biofilm, slough Severity: Fat Layer Exposed Amount of bleeding with debridement: Mild Bleeding Controlled with: Pressure Patient tolerated procedure: Patient tolerated procedure well - Additional Wound Wound debrided: posterior leg Laterality: Left Wound Grade/Stage: grade 2 Type of Debridement: Excisional debridement Anesthesia Used: 5% Lidocaine Gel Depth: in the subcutaneous layer Percentage of wound debrided: 100 Instrument Used: #15 blade Tissue Removed: fibrous, devitalized subcutaneous, biofilm, slough Severity: Fat Layer Exposed Amount of bleeding with debridement: Mild Bleeding Controlled with: Pressure Patient tolerated procedure: Patient tolerated procedure well Assessment/Plan Active Problems (Last Updated 09/28/18 @ 12:41 by Geraldine Steele) Type 2 diabetes mellitus with foot ulcer (Chronic) Ulcer of right foot with fat layer exposed (Chronic) Ulcer of right lower extremity with fat layer exposed (Chronic) Tobacco dependence due to cigarettes (Chronic) Ulcer of left lower extremity with fat layer exposed (Chronic) Type 2 diabetes mellitus with diabetic polyneuropathy (Chronic) Localized edema (Chronic) Malnutrition (Chronic) Assessment: -New right anterior leg ulcer, no infection. -Now status post operating room excisional subcutaneous and tendon debridements to bilateral legs and right foot with additional application of advanced wound healing products to bilateral posterior lower legs--no infection and stable today (incorporating well). 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 -previous bilateral leg fasciotomies and debridements and irrigation performed previously now with right and left leg ulcers with fat and tendon layers exposed. -diabetic neuropathy. -malnutrition suspected. 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 -delayed healing. -gait impairment and fall risk. -other comorbidities. -Continued smoking habits Plan: I reviewed and discussed his case today. His surgical site was evaluated and the advanced wound healing product appears to be incorporating well. This is stable. Debridement was performed as noted in the clinical panel. To change daily with [employer]. Advanced wound healing product approval will be confirmed for application next week after additional debridement. I recommend epi-fix application. He has demonstrated significant delays in healing under his prior comprehensive wound healing plan. He was reassured no local or systemic signs of illness is suspected today. To continue increased protein intake with nutritional supplementation. To continue glycemic control. He had a previous arterial Doppler scheduled with Dr. Morgan's staff on August 02, 2018 and overall perfusion was confirmed; additional intervention or workup was not recommended. It is also noted that he did have venous Doppler performed with reflux evaluation. He did not have evidence of deep venous thrombosis or venous insufficiency at that time; the vessels were compressible. I recommend he sustained from smoking and alcohol activities to optimize healing as well. This is discussed at length again today and he defers smoking cessation referral program. He decreased his habits from 20 cigarettes a day to 10 and I encouraged him to strive for 5 or less. Prior workup summary: His workup for vasculitis and underlying autoimmune disorder has been completed. A punch biopsy was sent during his last surgical intervention on June 10 and this demonstrated inflammatory changes without malignancy. He had initial screening labs and so far he has a negative RA titer, HL of the 27, KEVIN, anti-CCP, and rheumatoid factor. Several his antibody screenings were not reportable. Hyperbaric oxygen therapy was recommended and it is noted his ejection fraction was most recently 50%. He refuses at this time. . I answered his questions. To return to the wound healing center in 1 week. To call sooner if he has any questions or concerns. . Quality measures reviewed as the following: Updated today: Medication and allergy reconciliation, pain status and follow-up plan. Reviewed on 11-29-2019: up-to-date pneumonia vaccination status, he has not up-to-date influenza immunization performed in 09/2019, he does have a living will on file. He is a smoker and smoking cessation was reviewed. He does have elevated blood pressure at or above 120/80 mmHg and also elevated body mass index. For these issues I recommend he follows up with his primary care physician as scheduled. He was counseled on the importance of diet and exercise as well.
[2019-12-06 08:18] VITALS: BP 126/95; PULSE 94; RESP 18; TEMP 35.7; BMI 32.3
--- NOTE | 2019-12-06 10:52 | PCM.WC.PN ---
(1) Type 2 diabetes mellitus with foot ulcer Status: Chronic Current Visit: Yes Code(s): E11.621 - Type 2 diabetes mellitus with foot ulcer; L97.509 - Non-pressure chronic ulcer of other part of unspecified foot with unspecified severity (2) Ulcer of right foot with fat layer exposed Status: Chronic Current Visit: Yes Code(s): L97.512 - Non-pressure chronic ulcer of other part of right foot with fat layer exposed (3) Ulcer of right lower extremity with fat layer exposed Status: Chronic Current Visit: Yes Code(s): L97.912 - Non-pressure chronic ulcer of unspecified part of right lower leg with fat layer exposed (4) Ulcer of left lower extremity with fat layer exposed Status: Chronic Current Visit: Yes Code(s): L97.922 - Non-pressure chronic ulcer of unspecified part of left lower leg with fat layer exposed (5) Type 2 diabetes mellitus with diabetic polyneuropathy Status: Chronic Current Visit: Yes Code(s): E11.42 - Type 2 diabetes mellitus with diabetic polyneuropathy (6) Tobacco dependence due to cigarettes Status: Chronic Current Visit: Yes Code(s): F17.210 - Nicotine dependence, cigarettes, uncomplicated (7) Localized edema Status: Chronic Current Visit: Yes Code(s): R60.0 - Localized edema (8) Malnutrition Status: Chronic Current Visit: Yes Code(s): E46 - Unspecified protein-calorie malnutrition Type of Wound Date of Service: 12/06/19 Chief Complaint: right and left Leg ulcers and right foot ulcers. History of Wound: Mr. Arguello is a 64-year-old male with multiple comorbidities follows up for delayed healing ulcers to the right foot as well as bilateral legs. These are chronic and he has had previous remote surgical intervention. He also had operating room debridement performed last on on November 03, 2019 bilateral lower extremities to all bilateral ulcer sites with additional application of advanced wound healing products including amnio fill and epi-cord to bilateral posterior legs and right foot. He denies chills, fever, nausea, or vomiting. He presents today with his . He refuses hyperbaric oxygen therapy treatment. He denies odor or redness. He relates complete resolution of pain; 2/10. He denies new injuries. He denies pain, redness, or odor. Progress of Wound: improving bilateral - Physical Exam Vital Signs Temp Pulse Resp BP 96.3 F L 94 18 126/95 H 12/06/19 08:18 12/06/19 08:18 12/06/19 08:18 12/06/19 08:18 General: Alert, Oriented x3, Cooperative, No apparent distress Extremities: No cyanosis, Capillary Refill Less than 3 Seconds, No Calf Tenderness, Diminished Peripheral Pulses, Edema Skin: Ulcer/ Wound - No purulence, erythema, string, odor, or infection bilateral. His skin is atrophic and hairless in general. His ulcer beds are granular with some continued peripheral epithelialization noted and decreased depth. Wound Measurements and Assessment WC - Nurse 1 - General Ulcer Measurement Start: 11/24/19 13:06 Freq: Status: Active Protocol: Activity Type Activity Date Activity User E-Sign Co-Sign Detail Recorded Client Recorded Date Recorded By Document 12/06/19 08:18 RB [id number] 12/06/19 08:29 RB 12/06/19 08:18 Wound Center Nurse 1 [Ulcer Assessment] 17-right [place] -Combined with other wound No -Current Size (cm) - Length 1 -Current Size (cm) - Width 0.5 -Current Size (cm) - Depth 0.1 -Total Square Cm 0.5 -Tunneling No -Undermining/Tunneling No -Circular Undermining No -Exudate Amt Small -Exudate Type Serosanguineous -Wound Margin Flat & Intact -Granulation Amt Medium (34-66%) -Granulation Quality Tarnov -Slough/Fibrin Yes -Necrosis Amt Medium (34-66%) -Necrotic Tissue Type Adherent Slough -Structure Exposed N/A -Texture (Lisa-wound Skin Appearance) Assessed -Moisture (Lisa-wound Skin Appearance Dry/Scaly ) -Color (Lisa-wound Skin Appearance) Assessed -Temperature (Lisa-wound Skin No Abnormality Appearance) (Pt Warm) -Tenderness on Palpation (Lisa-wound No Skin Appearance) -Ulcer Cleansing Wound Cleanser -Foul Odor after Cleansing No -Anesthetic Used 4% Lidocaine Solution #14 R medial ankle -Combined with other wound No -Current Size (cm) - Length 0.9 -Current Size (cm) - Width 0.5 -Current Size (cm) - Depth 0.1 -Total Square Cm 0.45 -Tunneling No -Undermining/Tunneling No -Circular Undermining No -Exudate Amt Small -Exudate Type Serosanguineous -Wound Margin Flat & Intact -Granulation Amt Medium (34-66%) -Granulation Quality Tarnov -Slough/Fibrin Yes -Necrosis Amt Small (1-33%) -Necrotic Tissue Type Adherent Slough -Structure Exposed N/A -Texture (Lisa-wound Skin Appearance) Assessed -Moisture (Lisa-wound Skin Appearance Dry/Scaly ) -Color (Lisa-wound Skin Appearance) Assessed -Temperature (Lisa-wound Skin No Abnormality Appearance) (Pt Warm) -Tenderness on Palpation (Lisa-wound No Skin Appearance) -Ulcer Cleansing Wound Cleanser -Foul Odor after Cleansing No -Anesthetic Used 4% Lidocaine Solution #11 RIGHT MEDIAL FOOT -Combined with other wound No -Current Size (cm) - Length 1.5 -Current Size (cm) - Width 1.8 -Current Size (cm) - Depth 0.2 -Total Square Cm 2.70 -Tunneling No -Undermining/Tunneling No -Circular Undermining No -Exudate Amt Small -Exudate Type Serosanguineous -Wound Margin Flat & Intact -Granulation Amt Medium (34-66%) -Granulation Quality Tarnov -Slough/Fibrin Yes -Necrosis Amt Medium (34-66%) -Necrotic Tissue Type Adherent Slough -Structure Exposed N/A -Texture (Lisa-wound Skin Appearance) Assessed -Moisture (Lisa-wound Skin Appearance Dry/Scaly ) -Color (Lisa-wound Skin Appearance) Assessed -Temperature (Lisa-wound Skin No Abnormality Appearance) (Pt Warm) -Tenderness on Palpation (Lisa-wound No Skin Appearance) -Ulcer Cleansing Wound Cleanser -Foul Odor after Cleansing No -Anesthetic Used 4% Lidocaine Solution #6 POSTERIOR LLE -Combined with other wound No -Current Size (cm) - Length 14 -Current Size (cm) - Width 1 -Current Size (cm) - Depth 0.3 -Total Square Cm 14 -Tunneling No -Undermining/Tunneling No -Circular Undermining No -Exudate Amt Small -Exudate Type Serosanguineous -Wound Margin Flat & Intact -Granulation Amt Medium (34-66%) -Granulation Quality Tarnov -Slough/Fibrin Yes -Necrosis Amt Medium (34-66%) -Necrotic Tissue Type Adherent Slough -Structure Exposed N/A -Texture (Lisa-wound Skin Appearance) Assessed -Moisture (Lisa-wound Skin Appearance Dry/Scaly ) -Color (Lisa-wound Skin Appearance) Assessed -Temperature (Lisa-wound Skin No Abnormality Appearance) (Pt Warm) -Tenderness on Palpation (Lisa-wound No Skin Appearance) -Ulcer Cleansing Wound Cleanser -Foul Odor after Cleansing No -Anesthetic Used 4% Lidocaine Solution #4 POSTERIOR RLE -Combined with other wound No -Current Size (cm) - Length 14.5 -Current Size (cm) - Width 2.8 -Current Size (cm) - Depth 0.3 -Total Square Cm 40.60 -Tunneling No -Undermining/Tunneling No -Circular Undermining No -Exudate Amt Small -Exudate Type Serosanguineous -Wound Margin Flat & Intact -Granulation Amt Medium (34-66%) -Granulation Quality Tarnov -Necrosis Amt Medium (34-66%) -Necrotic Tissue Type Adherent Slough -Structure Exposed N/A -Texture (Lisa-wound Skin Appearance) Assessed -Moisture (Lisa-wound Skin Appearance Assessed ) -Color (Lisa-wound Skin Appearance) Assessed -Temperature (Lisa-wound Skin No Abnormality Appearance) (Pt Warm) -Tenderness on Palpation (Lisa-wound No Skin Appearance) -Ulcer Cleansing Wound Cleanser -Foul Odor after Cleansing No -Anesthetic Used 4% Lidocaine Solution [Edema Assessment] -Lower Limb Edema Present Yes -Right Calf (cm) 38.5 -Right Ankle (cm) 20.5 -Left Calf (cm) 36.5 -Left Ankle (cm) 20.8 WC - Nurse 2 - General Ulcer CM Notes Start: 11/24/19 13:06 Freq: Status: Active Protocol: Activity Type Activity Date Activity User E-Sign Co-Sign Detail Recorded Client Recorded Date Recorded By Document 12/06/19 08:41 JAMAL [id number] 12/06/19 08:45 JAMAL 12/06/19 08:41 Wound Center Nurse 2 [Procedure/Treatment] 17-right [place] -Time 08:43 -Correct Patient Yes -Correct Side, Site, Position Yes -Correct Procedure Yes -Procedure Performed Yes -Type of Procedure Debridement -Clinical Debridement Subcutaneous -Post Debridement Size (cm) - Length 1 -Post Debridement Size (cm) - Width 0.6 -Post Debridement Size (cm) - Depth 0.1 -Total Square Cm 0.6 -Wound/Ulcer Outcome Not Healed -Ulcer Cleansing Rinsed/ Irrigated with Saline -Foul Odor after Cleansing No -Bioengineered Tissue No -Bleeding Controlled with Pressure -Offloading Yes -Type of Offloading Camwalker -Treatment Response Procedure Tolerated Well #14 R medial ankle -Time 08:43 -Correct Patient Yes -Correct Side, Site, Position Yes -Correct Procedure Yes -Procedure Performed Yes -Type of Procedure Debridement -Clinical Debridement Subcutaneous -Post Debridement Size (cm) - Length 1 -Post Debridement Size (cm) - Width 0.5 -Post Debridement Size (cm) - Depth 0.1 -Total Square Cm 0.5 -Wound/Ulcer Outcome Not Healed -Ulcer Cleansing Rinsed/ Irrigated with Saline -Foul Odor after Cleansing No -Bioengineered Tissue No -Bleeding Controlled with Pressure -Offloading Yes -Type of Offloading Camwalker -Treatment Response Procedure Tolerated Well #11 RIGHT MEDIAL FOOT -Time 08:43 -Correct Patient Yes -Correct Side, Site, Position Yes -Correct Procedure Yes -Procedure Performed Yes -Type of Procedure Debridement -Clinical Debridement Subcutaneous -Post Debridement Size (cm) - Length 1.5 -Post Debridement Size (cm) - Width 1.9 -Post Debridement Size (cm) - Depth 0.1 -Total Square Cm 2.85 -Wound/Ulcer Outcome Not Healed -Ulcer Cleansing Rinsed/ Irrigated with Saline -Foul Odor after Cleansing No -Bioengineered Tissue No -Bleeding Controlled with Pressure -Offloading Yes -Type of Offloading Camwalker -Treatment Response Procedure Tolerated Well #6 POSTERIOR LLE -Time 08:44 -Correct Patient Yes -Correct Side, Site, Position Yes -Correct Procedure Yes -Procedure Performed Yes -Type of Procedure Debridement -Clinical Debridement Subcutaneous -Post Debridement Size (cm) - Length 14 -Post Debridement Size (cm) - Width 1.1 -Post Debridement Size (cm) - Depth 0.3 -Total Square Cm 15.4 -Wound/Ulcer Outcome Not Healed -Ulcer Cleansing Rinsed/ Irrigated with Saline -Foul Odor after Cleansing No -Bioengineered Tissue No -Bleeding Controlled with Pressure -Offloading Yes -Type of Offloading Camwalker -Treatment Response Procedure Tolerated Well #4 POSTERIOR RLE -Time 08:44 -Correct Patient Yes -Correct Side, Site, Position Yes -Correct Procedure Yes -Procedure Performed Yes -Type of Procedure Debridement -Clinical Debridement Subcutaneous -Post Debridement Size (cm) - Length 14.5 -Post Debridement Size (cm) - Width 2.9 -Post Debridement Size (cm) - Depth 0.3 -Total Square Cm 42.05 -Wound/Ulcer Outcome Not Healed -Ulcer Cleansing Rinsed/ Irrigated with Saline -Foul Odor after Cleansing No -Bioengineered Tissue No -Bleeding Controlled with Pressure -Offloading Yes -Type of Offloading Camwalker -Treatment Response Procedure Tolerated Well [See Physician Procedure note for Specifics] Pain Scale: 0-10 Numeric [Pain] -Is Patient Pain Free? Yes Musculoskeletal: No Tenderness to Palpation of Joints or Extremities, Muscle Wasting Neurological: - - Lack of normal Bacardi sensation light touch consistent with neuropathy status Psych/Mental Status: Normal Affect, Appropriate Debridement Note Post-Debridement Measurements/Treatment WC - Nurse 2 - General Ulcer CM Notes Start: 11/24/19 13:06 Freq: Status: Active Protocol: Activity Type Activity Date Activity User E-Sign Co-Sign Detail Recorded Client Recorded Date Recorded By Document 11/24/19 13:16 [id number] 11/24/19 13:21 Document 11/29/19 08:48 [id number] 11/29/19 08:52 Document 12/06/19 08:41 [id number] 12/06/19 08:45 11/24/19 11/29/19 12/06/19 13:16 08:48 08:41 Wound Center Nurse 2 17-right [place] -Time 08:52 08:43 -Correct Patient Yes Yes -Correct Side, Site, Position Yes Yes -Correct Procedure Yes Yes -Procedure Performed Yes Yes -Type of Procedure Debridement Debridement -Clinical Debridement Subcutaneous Subcutaneous -Post Debridement Size (cm) - Length 0.7 1 -Post Debridement Size (cm) - Width 0.6 0.6 -Post Debridement Size (cm) - Depth 0.1 0.1 -Total Square Cm 0.42 0.6 -Wound/Ulcer Outcome Not Healed Not Healed -Ulcer Cleansing Rinsed/ Rinsed/ Irrigated with Irrigated with Saline Saline -Foul Odor after Cleansing No No -Bioengineered Tissue No No -Bleeding Controlled with Pressure Pressure -Offloading No Yes -Type of Offloading Camwalker -Treatment Response Procedure Procedure Tolerated Well Tolerated Well #14 R medial ankle -Time 13:17 08:49 08:43 -Correct Patient Yes Yes Yes -Correct Side, Site, Position Yes Yes Yes -Correct Procedure Yes Yes Yes -Procedure Performed Yes Yes Yes -Type of Procedure Debridement Debridement Debridement -Clinical Debridement Subcutaneous Subcutaneous Subcutaneous -Post Debridement Size (cm) - Length 1.1 2 1 -Post Debridement Size (cm) - Width 0.6 0.7 0.5 -Post Debridement Size (cm) - Depth 0.2 0.1 0.1 -Total Square Cm 0.66 1.4 0.5 -Wound/Ulcer Outcome Not Healed Not Healed Not Healed -Ulcer Cleansing Rinsed/ Rinsed/ Rinsed/ Irrigated with Irrigated with Irrigated with Saline Saline Saline -Foul Odor after Cleansing No No No -Bioengineered Tissue No No No -Bleeding Controlled with Pressure Pressure Pressure -Offloading No No Yes -Type of Offloading Camwalker -Treatment Response Procedure Procedure Procedure Tolerated Well Tolerated Well Tolerated Well #11 RIGHT MEDIAL FOOT -Time 13:17 08:50 08:43 -Correct Patient Yes Yes Yes -Correct Side, Site, Position Yes Yes Yes -Correct Procedure Yes Yes Yes -Procedure Performed Yes Yes Yes -Type of Procedure Debridement Debridement Debridement -Clinical Debridement Subcutaneous Subcutaneous Subcutaneous -Post Debridement Size (cm) - Length 1.8 1.6 1.5 -Post Debridement Size (cm) - Width 1 0.9 1.9 -Post Debridement Size (cm) - Depth 0.2 0.1 0.1 -Total Square Cm 1.8 1.44 2.85 -Wound/Ulcer Outcome Not Healed Not Healed Not Healed -Ulcer Cleansing Rinsed/ Rinsed/ Rinsed/ Irrigated with Irrigated with Irrigated with Saline Saline Saline -Foul Odor after Cleansing No No No -Bioengineered Tissue No No No -Bleeding Controlled with Pressure Pressure Pressure -Offloading No No Yes -Type of Offloading Camwalker -Treatment Response Procedure Procedure Procedure Tolerated Well Tolerated Well Tolerated Well #6 POSTERIOR LLE -Time 13:17 08:50 08:44 -Correct Patient Yes Yes Yes -Correct Side, Site, Position Yes Yes Yes -Correct Procedure Yes Yes Yes -Procedure Performed Yes Yes Yes -Type of Procedure Debridement Debridement Debridement -Clinical Debridement Subcutaneous Subcutaneous Subcutaneous -Post Debridement Size (cm) - Length 5.8 6.1 14 -Post Debridement Size (cm) - Width 1 1 1.1 -Post Debridement Size (cm) - Depth 0.3 0.2 0.3 -Total Square Cm 5.8 6.1 15.4 -Wound/Ulcer Outcome Not Healed Not Healed Not Healed -Ulcer Cleansing Rinsed/ Rinsed/ Rinsed/ Irrigated with Irrigated with Irrigated with Saline Saline Saline -Foul Odor after Cleansing No No No -Bioengineered Tissue No No No -Bleeding Controlled with Pressure Pressure Pressure -Offloading No No Yes -Type of Offloading Camwalker -Treatment Response Procedure Procedure Procedure Tolerated Well Tolerated Well Tolerated Well #4 POSTERIOR RLE -Time 13:18 08:50 08:44 -Correct Patient Yes Yes Yes -Correct Side, Site, Position Yes Yes Yes -Correct Procedure Yes Yes Yes -Procedure Performed Yes Yes Yes -Type of Procedure Debridement Debridement Debridement -Clinical Debridement Subcutaneous Subcutaneous Subcutaneous -Post Debridement Size (cm) - Length 11.5 12.2 14.5 -Post Debridement Size (cm) - Width 3.1 2.6 2.9 -Post Debridement Size (cm) - Depth 0.3 0.3 0.3 -Total Square Cm 35.65 31.72 42.05 -Wound/Ulcer Outcome Not Healed Not Healed Not Healed -Ulcer Cleansing Rinsed/ Rinsed/ Rinsed/ Irrigated with Irrigated with Irrigated with Saline Saline Saline -Foul Odor after Cleansing No No No -Bioengineered Tissue No No No -Bleeding Controlled with Pressure Pressure Pressure -Offloading No No Yes -Type of Offloading Camwalker -Treatment Response Procedure Procedure Procedure Tolerated Well Tolerated Well Tolerated Well #1 RIGHT GRT TOE/2ND TOE WEB SPACE -Correct Patient No -Correct Side, Site, Position No -Correct Procedure No -Procedure Performed No -Post Debridement Size (cm) - Length 0 -Post Debridement Size (cm) - Width 0 -Post Debridement Size (cm) - Depth 0 -Total Square Cm 0 -Wound/Ulcer Outcome Healed- Epithelialized Pain Scale: 0-10 Numeric Is Patient Pain Free? Yes Yes Yes Wound debrided: medial distal foot, medial proximal foot, posterior leg Laterality: Right Wound Grade/Stage: grade 3 Type of Debridement: Excisional debridement Anesthesia Used: 5% Lidocaine Gel Depth: in the subcutaneous layer Percentage of wound debrided: 100 Instrument Used: #15 blade Tissue Removed: fibrous, devitalized subcutaneous, biofilm, slough Severity: Fat Layer Exposed Amount of bleeding with debridement: Mild Bleeding Controlled with: Pressure Patient tolerated procedure well - Additional Wound Wound debrided: anterior leg Laterality: Right Wound Grade/Stage: grade 1 Type of Debridement: Excisional debridement Anesthesia Used: 5% Lidocaine Gel Depth: in the subcutaneous layer Percentage of wound debrided: 100 Instrument Used: #15 blade Tissue Removed: fibrous, devitalized subcutaneous, biofilm, slough Severity: Fat Layer Exposed Amount of bleeding with debridement: Mild Bleeding Controlled with: Pressure Patient tolerated procedure: Patient tolerated procedure well - Additional Wound Wound debrided: posterior leg Laterality: Left Wound Grade/Stage: grade 2 Type of Debridement: Excisional debridement Anesthesia Used: 5% Lidocaine Gel Depth: in the subcutaneous layer Percentage of wound debrided: 100 Instrument Used: #15 blade Tissue Removed: fibrous, devitalized subcutaneous, biofilm, slough Severity: Fat Layer Exposed Amount of bleeding with debridement: Mild Bleeding Controlled with: Pressure Patient tolerated procedure: Patient tolerated procedure well Assessment/Plan Active Problems (Last Updated 09/28/18 @ 12:41 by Geraldine Steele) Type 2 diabetes mellitus with foot ulcer (Chronic) Ulcer of right foot with fat layer exposed (Chronic) Ulcer of right lower extremity with fat layer exposed (Chronic) Tobacco dependence due to cigarettes (Chronic) Ulcer of left lower extremity with fat layer exposed (Chronic) Type 2 diabetes mellitus with diabetic polyneuropathy (Chronic) Localized edema (Chronic) Malnutrition (Chronic) Assessment: -right anterior leg ulcer, no infection. -Now status post operating room excisional subcutaneous and tendon debridements to bilateral legs and right foot with additional application of advanced wound healing products to bilateral posterior lower legs--no infection and stable today -improvement noted. 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 -previous bilateral leg fasciotomies and debridements and irrigation performed previously now with right and left leg ulcers with fat and tendon layers exposed. -diabetic neuropathy. -malnutrition suspected. 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 -delayed healing. -gait impairment and fall risk. -other comorbidities. -Continued smoking habits Plan: I reviewed and discussed his case today. His surgical site was evaluated and the advanced wound healing product appears to be incorporating well. This is stable. Debridement was performed as noted in the clinical panel. To change daily with [employer]. Advanced wound healing product approval will be confirmed for application next week after additional debridement. I recommend epi-fix application. He has demonstrated significant delays in healing under his prior comprehensive wound healing plan. He was reassured no local or systemic signs of illness is suspected today. To continue increased protein intake with nutritional supplementation. To continue glycemic control. He had a previous arterial Doppler scheduled with Dr. Morgan's staff on August 02, 2018 and overall perfusion was confirmed; additional intervention or workup was not recommended. It is also noted that he did have venous Doppler performed with reflux evaluation. He did not have evidence of deep venous thrombosis or venous insufficiency at that time; the vessels were compressible. I recommend he sustained from smoking and alcohol activities to optimize healing as well. This is discussed at length again today and he defers smoking cessation referral program. He decreased his habits from 20 cigarettes a day to 10 and I encouraged him to strive for 5 or less. Prior workup summary: His workup for vasculitis and underlying autoimmune disorder has been completed. A punch biopsy was sent during his last surgical intervention on June 10 and this demonstrated inflammatory changes without malignancy. He had initial screening labs and so far he has a negative RA titer, HL of the 27, KEVIN, anti-CCP, and rheumatoid factor. Several his antibody screenings were not reportable. Hyperbaric oxygen therapy was recommended and it is noted his ejection fraction was most recently 50%. He refuses at this time. . I answered his questions. To return to the wound healing center in 1 week. To call sooner if he has any questions or concerns. . Quality measures reviewed as the following: Updated today: Medication and allergy reconciliation, pain status and follow-up plan. Reviewed on 11-29-2019: up-to-date pneumonia vaccination status, he has not up-to-date influenza immunization performed in 09/2019, he does have a living will on file. He is a smoker and smoking cessation was reviewed. He does have elevated blood pressure at or above 120/80 mmHg and also elevated body mass index. For these issues I recommend he follows up with his primary care physician as scheduled. He was counseled on the importance of diet and exercise as well.
[2019-12-13 09:17] VITALS: BP 114/75; PULSE 101; RESP 18; TEMP 36.6; BMI 32.3
--- NOTE | 2019-12-13 09:55 | PCM.WC.PN ---
(1) Type 2 diabetes mellitus with foot ulcer Status: Chronic Current Visit: Yes Code(s): E11.621 - Type 2 diabetes mellitus with foot ulcer; L97.509 - Non-pressure chronic ulcer of other part of unspecified foot with unspecified severity (2) Ulcer of right foot with fat layer exposed Status: Chronic Current Visit: Yes Code(s): L97.512 - Non-pressure chronic ulcer of other part of right foot with fat layer exposed (3) Ulcer of right lower extremity with fat layer exposed Status: Chronic Current Visit: Yes Code(s): L97.912 - Non-pressure chronic ulcer of unspecified part of right lower leg with fat layer exposed (4) Ulcer of left lower extremity with fat layer exposed Status: Chronic Current Visit: Yes Code(s): L97.922 - Non-pressure chronic ulcer of unspecified part of left lower leg with fat layer exposed (5) Type 2 diabetes mellitus with diabetic polyneuropathy Status: Chronic Current Visit: Yes Code(s): E11.42 - Type 2 diabetes mellitus with diabetic polyneuropathy (6) Tobacco dependence due to cigarettes Status: Chronic Current Visit: Yes Code(s): F17.210 - Nicotine dependence, cigarettes, uncomplicated (7) Localized edema Status: Chronic Current Visit: Yes Code(s): R60.0 - Localized edema (8) Malnutrition Status: Chronic Current Visit: Yes Code(s): E46 - Unspecified protein-calorie malnutrition Type of Wound Date of Service: 12/13/19 Chief Complaint: right and left Leg ulcers and right foot ulcers. History of Wound: Mr. Arguello is a 64-year-old male with multiple comorbidities follows up for delayed healing ulcers to the right foot as well as bilateral legs. These are chronic and he has had previous remote surgical intervention. He also had operating room debridement performed last on on November 03, 2019 bilateral lower extremities to all bilateral ulcer sites with additional application of advanced wound healing products including amnio fill and epi-cord to bilateral posterior legs and right foot. He denies chills, fever, nausea, or vomiting. He presents today with his . He refuses hyperbaric oxygen therapy treatment. He denies odor or redness. He relates complete resolution of pain; 2/10. He denies new injuries. He denies pain, redness, or odor. States overall feeling better. Progress of Wound: improving bilateral - Physical Exam Vital Signs Temp Pulse Resp BP 97.8 F 101 H 18 114/75 12/13/19 09:17 12/13/19 09:17 12/13/19 09:17 12/13/19 09:17 General: Alert, Oriented x3, Cooperative, No apparent distress Extremities: No edema, Cool, Diminished Peripheral Pulses Skin: Ulcer/ Wound - Right anterior leg wound with fibrotic slough noted. Bilateral posterior leg wounds with fibrotic slough noted. Wound Measurements and Assessment WC - Nurse 1 - General Ulcer Measurement Start: 11/24/19 13:06 Freq: Status: Active Protocol: Activity Type Activity Date Activity User E-Sign Co-Sign Detail Recorded Client Recorded Date Recorded By Document 12/13/19 09:17 RB [id number] 12/13/19 09:44 RB 12/13/19 09:17 Wound Center Nurse 1 [Ulcer Assessment] 17-right [place] -Combined with other wound No -Current Size (cm) - Length 0.1 -Current Size (cm) - Width 0.1 -Current Size (cm) - Depth 0.1 -Total Square Cm 0.01 -Tunneling No -Undermining/Tunneling No -Circular Undermining No -Exudate Amt Small -Exudate Type Serosanguineous -Wound Margin Flat & Intact -Granulation Amt Medium (34-66%) -Granulation Quality [place] -Slough/Fibrin Yes -Necrosis Amt Large (67-100%) -Necrotic Tissue Type Adherent Slough -Structure Exposed N/A -Texture (Lisa-wound Skin Appearance) Assessed -Moisture (Lisa-wound Skin Appearance Assessed,Dry/ ) Scaly -Color (Lisa-wound Skin Appearance) Assessed -Temperature (Lisa-wound Skin No Abnormality Appearance) (Pt Warm) -Tenderness on Palpation (Lisa-wound No Skin Appearance) -Ulcer Cleansing Wound Cleanser -Foul Odor after Cleansing No -Anesthetic Used 4% Lidocaine Solution #14 R medial ankle -Combined with other wound No -Current Size (cm) - Length 0.1 -Current Size (cm) - Width 0.1 -Current Size (cm) - Depth 0.1 -Total Square Cm 0.01 -Tunneling No -Undermining/Tunneling No -Exudate Amt Small -Exudate Type Serosanguineous -Wound Margin Flat & Intact -Granulation Amt Medium (34-66%) -Granulation Quality [place] -Slough/Fibrin Yes -Necrosis Amt Small (1-33%) -Necrotic Tissue Type Adherent Slough -Structure Exposed N/A -Texture (Lisa-wound Skin Appearance) Assessed -Moisture (Lisa-wound Skin Appearance Dry/Scaly ) -Color (Lisa-wound Skin Appearance) Assessed -Temperature (Lisa-wound Skin No Abnormality Appearance) (Pt Warm) -Tenderness on Palpation (Lisa-wound No Skin Appearance) -Ulcer Cleansing Wound Cleanser -Foul Odor after Cleansing No -Anesthetic Used 4% Lidocaine Solution #11 RIGHT MEDIAL FOOT -Combined with other wound No -Current Size (cm) - Length 2 -Current Size (cm) - Width 1.5 -Current Size (cm) - Depth 0.1 -Total Square Cm 3.0 -Tunneling No -Undermining/Tunneling No -Circular Undermining No -Exudate Amt Small -Exudate Type Serosanguineous -Wound Margin Flat & Intact -Granulation Amt Medium (34-66%) -Granulation Quality [place] -Slough/Fibrin Yes -Necrosis Amt Small (1-33%) -Necrotic Tissue Type Adherent Slough -Structure Exposed N/A -Texture (Lisa-wound Skin Appearance) Assessed -Moisture (Lisa-wound Skin Appearance Dry/Scaly ) -Color (Lisa-wound Skin Appearance) Assessed -Temperature (Lisa-wound Skin No Abnormality Appearance) (Pt Warm) -Tenderness on Palpation (Lisa-wound No Skin Appearance) -Ulcer Cleansing Wound Cleanser -Foul Odor after Cleansing No -Anesthetic Used 4% Lidocaine Solution #6 POSTERIOR LLE -Combined with other wound No -Current Size (cm) - Length 4 -Current Size (cm) - Width 2.2 -Current Size (cm) - Depth 0.1 -Total Square Cm 8.8 -Tunneling No -Undermining/Tunneling No -Circular Undermining No -Exudate Amt Small -Exudate Type Serosanguineous -Wound Margin Flat & Intact -Granulation Amt Medium (34-66%) -Granulation Quality [place] -Slough/Fibrin Yes -Necrosis Amt Medium (34-66%) -Structure Exposed N/A -Texture (Lisa-wound Skin Appearance) Assessed -Moisture (Lisa-wound Skin Appearance Assessed,Dry/ ) Scaly -Color (Lisa-wound Skin Appearance) Assessed -Temperature (Lisa-wound Skin No Abnormality Appearance) (Pt Warm) -Tenderness on Palpation (Lisa-wound No Skin Appearance) -Ulcer Cleansing Wound Cleanser -Foul Odor after Cleansing No -Anesthetic Used 4% Lidocaine Solution #4 POSTERIOR RLE -Combined with other wound No -Current Size (cm) - Length 11.3 -Current Size (cm) - Width 3.3 -Current Size (cm) - Depth 0.3 -Total Square Cm 37.29 -Tunneling No -Undermining/Tunneling No -Circular Undermining No -Exudate Amt Small -Exudate Type Serosanguineous -Wound Margin Flat & Intact -Granulation Amt Medium (34-66%) -Granulation Quality [place] -Slough/Fibrin Yes -Necrosis Amt Medium (34-66%) -Necrotic Tissue Type Adherent Slough -Structure Exposed N/A -Texture (Lisa-wound Skin Appearance) Assessed -Moisture (Lisa-wound Skin Appearance Assessed,Dry/ ) Scaly -Color (Lisa-wound Skin Appearance) Assessed -Temperature (Lisa-wound Skin No Abnormality Appearance) (Pt Warm) -Tenderness on Palpation (Lisa-wound No Skin Appearance) -Ulcer Cleansing Wound Cleanser -Foul Odor after Cleansing No -Anesthetic Used 4% Lidocaine Solution [Edema Assessment] -Lower Limb Edema Present Yes -Right Calf (cm) 37.8 -Right Ankle (cm) 21.6 -Left Calf (cm) 37.5 -Left Ankle (cm) 21.2 Musculoskeletal: No Tenderness to Palpation of Joints or Extremities, Muscle Wasting Neurological: - - Epicritic sensation diminished bilaterally Psych/Mental Status: Normal Affect, Appropriate, Alert and oriented to time, place, person, mood and affect Debridement Note Post-Debridement Measurements/Treatment WC - Nurse 2 - General Ulcer CM Notes Start: 11/24/19 13:06 Freq: Status: Active Protocol: Activity Type Activity Date Activity User E-Sign Co-Sign Detail Recorded Client Recorded Date Recorded By Document 11/24/19 13:16 [id number] 11/24/19 13:21 Document 11/29/19 08:48 [id number] 11/29/19 08:52 Document 12/06/19 08:41 [id number] 12/06/19 08:45 11/24/19 11/29/19 12/06/19 13:16 08:48 08:41 Wound Center Nurse 2 17-right [place] -Time 08:52 08:43 -Correct Patient Yes Yes -Correct Side, Site, Position Yes Yes -Correct Procedure Yes Yes -Procedure Performed Yes Yes -Type of Procedure Debridement Debridement -Clinical Debridement Subcutaneous Subcutaneous -Post Debridement Size (cm) - Length 0.7 1 -Post Debridement Size (cm) - Width 0.6 0.6 -Post Debridement Size (cm) - Depth 0.1 0.1 -Total Square Cm 0.42 0.6 -Wound/Ulcer Outcome Not Healed Not Healed -Ulcer Cleansing Rinsed/ Rinsed/ Irrigated with Irrigated with Saline Saline -Foul Odor after Cleansing No No -Bioengineered Tissue No No -Bleeding Controlled with Pressure Pressure -Offloading No Yes -Type of Offloading Camwalker -Treatment Response Procedure Procedure Tolerated Well Tolerated Well #14 R medial ankle -Time 13:17 08:49 08:43 -Correct Patient Yes Yes Yes -Correct Side, Site, Position Yes Yes Yes -Correct Procedure Yes Yes Yes -Procedure Performed Yes Yes Yes -Type of Procedure Debridement Debridement Debridement -Clinical Debridement Subcutaneous Subcutaneous Subcutaneous -Post Debridement Size (cm) - Length 1.1 2 1 -Post Debridement Size (cm) - Width 0.6 0.7 0.5 -Post Debridement Size (cm) - Depth 0.2 0.1 0.1 -Total Square Cm 0.66 1.4 0.5 -Wound/Ulcer Outcome Not Healed Not Healed Not Healed -Ulcer Cleansing Rinsed/ Rinsed/ Rinsed/ Irrigated with Irrigated with Irrigated with Saline Saline Saline -Foul Odor after Cleansing No No No -Bioengineered Tissue No No No -Bleeding Controlled with Pressure Pressure Pressure -Offloading No No Yes -Type of Offloading Camwalker -Treatment Response Procedure Procedure Procedure Tolerated Well Tolerated Well Tolerated Well #11 RIGHT MEDIAL FOOT -Time 13:17 08:50 08:43 -Correct Patient Yes Yes Yes -Correct Side, Site, Position Yes Yes Yes -Correct Procedure Yes Yes Yes -Procedure Performed Yes Yes Yes -Type of Procedure Debridement Debridement Debridement -Clinical Debridement Subcutaneous Subcutaneous Subcutaneous -Post Debridement Size (cm) - Length 1.8 1.6 1.5 -Post Debridement Size (cm) - Width 1 0.9 1.9 -Post Debridement Size (cm) - Depth 0.2 0.1 0.1 -Total Square Cm 1.8 1.44 2.85 -Wound/Ulcer Outcome Not Healed Not Healed Not Healed -Ulcer Cleansing Rinsed/ Rinsed/ Rinsed/ Irrigated with Irrigated with Irrigated with Saline Saline Saline -Foul Odor after Cleansing No No No -Bioengineered Tissue No No No -Bleeding Controlled with Pressure Pressure Pressure -Offloading No No Yes -Type of Offloading Camwalker -Treatment Response Procedure Procedure Procedure Tolerated Well Tolerated Well Tolerated Well #6 POSTERIOR LLE -Time 13:17 08:50 08:44 -Correct Patient Yes Yes Yes -Correct Side, Site, Position Yes Yes Yes -Correct Procedure Yes Yes Yes -Procedure Performed Yes Yes Yes -Type of Procedure Debridement Debridement Debridement -Clinical Debridement Subcutaneous Subcutaneous Subcutaneous -Post Debridement Size (cm) - Length 5.8 6.1 14 -Post Debridement Size (cm) - Width 1 1 1.1 -Post Debridement Size (cm) - Depth 0.3 0.2 0.3 -Total Square Cm 5.8 6.1 15.4 -Wound/Ulcer Outcome Not Healed Not Healed Not Healed -Ulcer Cleansing Rinsed/ Rinsed/ Rinsed/ Irrigated with Irrigated with Irrigated with Saline Saline Saline -Foul Odor after Cleansing No No No -Bioengineered Tissue No No No -Bleeding Controlled with Pressure Pressure Pressure -Offloading No No Yes -Type of Offloading Camwalker -Treatment Response Procedure Procedure Procedure Tolerated Well Tolerated Well Tolerated Well #4 POSTERIOR RLE -Time 13:18 08:50 08:44 -Correct Patient Yes Yes Yes -Correct Side, Site, Position Yes Yes Yes -Correct Procedure Yes Yes Yes -Procedure Performed Yes Yes Yes -Type of Procedure Debridement Debridement Debridement -Clinical Debridement Subcutaneous Subcutaneous Subcutaneous -Post Debridement Size (cm) - Length 11.5 12.2 14.5 -Post Debridement Size (cm) - Width 3.1 2.6 2.9 -Post Debridement Size (cm) - Depth 0.3 0.3 0.3 -Total Square Cm 35.65 31.72 42.05 -Wound/Ulcer Outcome Not Healed Not Healed Not Healed -Ulcer Cleansing Rinsed/ Rinsed/ Rinsed/ Irrigated with Irrigated with Irrigated with Saline Saline Saline -Foul Odor after Cleansing No No No -Bioengineered Tissue No No No -Bleeding Controlled with Pressure Pressure Pressure -Offloading No No Yes -Type of Offloading Camwalker -Treatment Response Procedure Procedure Procedure Tolerated Well Tolerated Well Tolerated Well #1 RIGHT GRT TOE/2ND TOE WEB SPACE -Correct Patient No -Correct Side, Site, Position No -Correct Procedure No -Procedure Performed No -Post Debridement Size (cm) - Length 0 -Post Debridement Size (cm) - Width 0 -Post Debridement Size (cm) - Depth 0 -Total Square Cm 0 -Wound/Ulcer Outcome Healed- Epithelialized Pain Scale: 0-10 Numeric Is Patient Pain Free? Yes Yes Yes Wound debrided: medial foot (distal), medial foot (proximal), posterior leg Laterality: Right - bilateral lower extermities Wound Grade/Stage: grade 3 Type of Debridement: Excisional debridement, Selective debridement Anesthesia Used: 5% Lidocaine Gel Depth: in the subcutaneous layer Percentage of wound debrided: 100 Instrument Used: #15 blade Tissue Removed: fibrous, devitalized subcutaneous, biofilm, slough Severity: Fat Layer Exposed Amount of bleeding with debridement: Mild Bleeding Controlled with: Pressure, Compression and gauze Patient tolerated procedure well - Additional Wound Wound debrided: posteior leg Laterality: Left Wound Grade/Stage: grade 2 Type of Debridement: Excisional debridement Anesthesia Used: 5% Lidocaine Gel Depth: in the subcutaneous layer Percentage of wound debrided: 100 Instrument Used: #15 blade Tissue Removed: fibrous, devitalized subcutaneous, biofilm, slough Severity: Fat Layer Exposed Amount of bleeding with debridement: Mild Bleeding Controlled with: Pressure Patient tolerated procedure: Patient tolerated procedure well Assessment/Plan Active Problems (Last Updated 09/28/18 @ 12:41 by Geraldine Steele) Type 2 diabetes mellitus with foot ulcer (Chronic) Ulcer of right foot with fat layer exposed (Chronic) Ulcer of right lower extremity with fat layer exposed (Chronic) Tobacco dependence due to cigarettes (Chronic) Ulcer of left lower extremity with fat layer exposed (Chronic) Type 2 diabetes mellitus with diabetic polyneuropathy (Chronic) Localized edema (Chronic) Malnutrition (Chronic) Assessment: -right anterior leg ulcer, no infection. -Now status post operating room excisional subcutaneous and tendon debridements to bilateral legs and right foot with additional application of advanced wound healing products to bilateral posterior lower legs--no infection and stable today -improvement noted. 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 -previous bilateral leg fasciotomies and debridements and irrigation performed previously now with right and left leg ulcers with fat and tendon layers exposed. -diabetic neuropathy. -malnutrition suspected. 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 -delayed healing. -gait impairment and fall risk. -other comorbidities. -Continued smoking habits Plan: I reviewed and discussed his case today. His surgical site was evaluated and the advanced wound healing product appears to be incorporating well. This is stable. Debridement was performed as noted in the clinical panel. To change daily with [employer]. Advanced wound healing product approval will be confirmed for application next week after additional debridement. I recommend epi-fix application. He has demonstrated significant delays in healing under his prior comprehensive wound healing plan. He was reassured no local or systemic signs of illness is suspected today. To continue increased protein intake with nutritional supplementation. To continue glycemic control. He had a previous arterial Doppler scheduled with Dr. Morgan's staff on August 02, 2018 and overall perfusion was confirmed; additional intervention or workup was not recommended. It is also noted that he did have venous Doppler performed with reflux evaluation. He did not have evidence of deep venous thrombosis or venous insufficiency at that time; the vessels were compressible. I recommend he sustained from smoking and alcohol activities to optimize healing as well. This is discussed at length again today and he defers smoking cessation referral program. He decreased his habits from 20 cigarettes a day to 10 and I encouraged him to strive for 5 or less. Prior workup summary: His workup for vasculitis and underlying autoimmune disorder has been completed. A punch biopsy was sent during his last surgical intervention on June 10 and this demonstrated inflammatory changes without malignancy. He had initial screening labs and so far he has a negative RA titer, HL of the 27, KEVIN, anti-CCP, and rheumatoid factor. Several his antibody screenings were not reportable. Hyperbaric oxygen therapy was recommended and it is noted his ejection fraction was most recently 50%. He refuses at this time. . I answered his questions. To return to the wound healing center in 1 week. To call sooner if he has any questions or concerns. . Quality measures reviewed as the following: Updated today: Medication and allergy reconciliation, pain status and follow-up plan. Reviewed on 11-29-2019: up-to-date pneumonia vaccination status, he has not up-to-date influenza immunization performed in 09/2019, he does have a living will on file. He is a smoker and smoking cessation was reviewed. He does have elevated blood pressure at or above 120/80 mmHg and also elevated body mass index. For these issues I recommend he follows up with his primary care physician as scheduled. He was counseled on the importance of diet and exercise as well. Quality measures reviewed as the following: Updated today: Medication and allergy reconciliation, pain status and follow-up plan. Reviewed on 11-29-2019: up-to-date pneumonia vaccination status, he has not up-to-date influenza immunization performed in 09/2019, he does have a living will on file. He is a smoker and smoking cessation was reviewed. He does have elevated blood pressure at or above 120/80 mmHg and also elevated body mass index. For these issues I recommend he follows up with his primary care physician as scheduled. He was counseled on the importance of diet and exercise as well.
[2019-12-20 08:03] VITALS: BP 144/90; PULSE 92; RESP 20; TEMP 35.7; BMI 32.3
--- NOTE | 2019-12-20 11:48 | PN.PCM_ITS ---
(1) Type 2 diabetes mellitus with foot ulcer Status: Chronic Current Visit: Yes Code(s): E11.621 - Type 2 diabetes mellitus with foot ulcer; L97.509 - Non-pressure chronic ulcer of other part of unspecified foot with unspecified severity (2) Ulcer of right foot with fat layer exposed Status: Chronic Current Visit: Yes Code(s): L97.512 - Non-pressure chronic ulcer of other part of right foot with fat layer exposed (3) Ulcer of right lower extremity with fat layer exposed Status: Chronic Current Visit: Yes Code(s): L97.912 - Non-pressure chronic ulcer of unspecified part of right lower leg with fat layer exposed (4) Ulcer of left lower extremity with fat layer exposed Status: Chronic Current Visit: Yes Code(s): L97.922 - Non-pressure chronic ulcer of unspecified part of left lower leg with fat layer exposed (5) Type 2 diabetes mellitus with diabetic polyneuropathy Status: Chronic Current Visit: Yes Code(s): E11.42 - Type 2 diabetes mellitus with diabetic polyneuropathy (6) Tobacco dependence due to cigarettes Status: Chronic Current Visit: Yes Code(s): F17.210 - Nicotine dependence, cigarettes, uncomplicated (7) Localized edema Status: Chronic Current Visit: Yes Code(s): R60.0 - Localized edema (8) Malnutrition Status: Chronic Current Visit: Yes Code(s): E46 - Unspecified protein- calorie malnutrition Type of Wound Date of Service: 12/20/19 Chief Complaint: right and left Leg ulcers and right foot ulcers. History of Wound: Mr. Arguello is a 64-year-old male with multiple comorbidities follows up for delayed healing ulcers to the right foot as well as bilateral legs. These are chronic and he has had previous remote surgical intervention. He also had operating room debridement performed last on on November 03, 2019 bilateral lower extremities to all bilateral ulcer sites with additional application of advanced wound healing products including amnio fill and epi-cord to bilateral posterior legs and right foot. He denies chills, fever, nausea, or vomiting. He presents today with his . He refuses hyperbaric oxygen therapy treatment. He denies odor or redness. He relates complete resolution of pain; 2/10. He denies new injuries. He denies pain, redness, or odor. States overall feeling better. Progress of Wound: improving bilateral - Physical Exam Vital Signs Temp Pulse Resp BP 96.2 F L 92 20 H 144/90 H 12/20/19 08:03 12/20/19 08:03 12/20/19 08:03 12/20/19 08:03 General: Alert, Oriented x3, Cooperative, No apparent distress HEENT: Atraumatic Extremities: No cyanosis, Capillary Refill Less than 3 Seconds, No Calf Tenderne ss, Diminished Peripheral Pulses, Edema Skin: Ulcer/ Wound - no purulence, no erythema, no streaking, no odor, no infection. skin is atrophic Wound Measurements and Assessment WC - Nurse 1 - General Ulcer Measurement Start: 11/24/19 13:06 Freq: Status: Active Protocol: Activity Type Activity Date Activity User E-Sign Co-Sign Detail Recorded Client Recorded Date Recorded By Document 12/20/19 08:03 DL [id number] 12/20/19 08:15 DL 12/20/19 08:03 Wound Center Nurse 1 [Ulcer Assessment] 17-right [place] -Current Size (cm) - Length 0 -Current Size (cm) - Width 0 -Current Size (cm) - Depth 0 -Total Square Cm 0 -Photo Taken Yes -Exudate Amt None Present -Wound Margin Flat & Intact -Granulation Amt Large (67-100%) -Granulation Quality [place] -Necrosis Amt None Present (0 %) -Structure Exposed N/A -Texture (Ilsa-wound Skin Appearance) Scarring -Moisture (Lisa-wound Skin Appearance Dry/Scaly ) -Color (Lisa-wound Skin Appearance) Hemosiderin Staining -Temperature (Lisa-wound Skin No Abnormality Appearance) (Pt Warm) -Tenderness on Palpation (Lisa-wound No Skin Appearance) -Ulcer Cleansing Wound Cleanser -Foul Odor after Cleansing No #14 R medial ankle -Current Size (cm) - Length 1.2 -Current Size (cm) - Width 0.6 -Current Size (cm) - Depth 0.2 -Total Square Cm 0.72 -Photo Taken No -Exudate Amt Small -Exudate Type Serosanguineous -Wound Margin Thickened -Granulation Amt Small (1-33%) -Granulation Quality [place] -Necrosis Amt Small (1-33%) -Necrotic Tissue Type Adherent Slough -Structure Exposed N/A -Texture (Lisa-wound Skin Appearance) Scarring -Moisture (Lisa-wound Skin Appearance Dry/Scaly ) -Color (Lisa-wound Skin Appearance) Hemosiderin Staining -Temperature (Lisa-wound Skin No Abnormality Appearance) (Pt Warm) -Tenderness on Palpation (Lisa-wound No Skin Appearance) -Foul Odor after Cleansing No -Anesthetic Used 4% Lidocaine Solution #11 RIGHT MEDIAL FOOT -Current Size (cm) - Length 1.1 -Current Size (cm) - Width 0.6 -Current Size (cm) - Depth 0.1 -Total Square Cm 0.66 -Photo Taken No -Exudate Amt None Present -Wound Margin Thickened -Granulation Amt Small (1-33%) -Granulation Quality [place] -Necrosis Amt Small (1-33%) -Necrotic Tissue Type Adherent Slough -Structure Exposed N/A -Texture (Lisa-wound Skin Appearance) Scarring -Moisture (Lisa-wound Skin Appearance Dry/Scaly ) -Color (Lisa-wound Skin Appearance) Hemosiderin Staining -Temperature (Lisa-wound Skin No Abnormality Appearance) (Pt Warm) -Tenderness on Palpation (Lisa-wound No Skin Appearance) -Ulcer Cleansing Wound Cleanser -Foul Odor after Cleansing No -Anesthetic Used 4% Lidocaine Solution #6 POSTERIOR LLE -Current Size (cm) - Length 4.5 -Current Size (cm) - Width 1 -Current Size (cm) - Depth 0.1 -Total Square Cm 4.5 -Photo Taken No -Exudate Amt None Present -Wound Margin Thickened -Granulation Amt None Present (0 %) -Necrosis Amt Large (67-100%) -Necrotic Tissue Type Adherent Slough -Structure Exposed N/A -Texture (Lisa-wound Skin Appearance) Scarring -Moisture (Lisa-wound Skin Appearance Dry/Scaly ) -Color (Lisa-wound Skin Appearance) Hemosiderin Staining -Temperature (Lisa-wound Skin No Abnormality Appearance) (Pt Warm) -Tenderness on Palpation (Lisa-wound No Skin Appearance) -Ulcer Cleansing Wound Cleanser -Foul Odor after Cleansing No -Anesthetic Used 4% Lidocaine Solution #4 POSTERIOR RLE -Current Size (cm) - Length 12 -Current Size (cm) - Width 2 -Current Size (cm) - Depth 0.3 -Total Square Cm 24 -Photo Taken No -Exudate Amt Small -Exudate Type Serosanguineous -Wound Margin Thickened -Granulation Amt Medium (34-66%) -Granulation Quality [place] -Necrosis Amt Medium (34-66%) -Necrotic Tissue Type Adherent Slough -Structure Exposed N/A -Texture (Lisa-wound Skin Appearance) Scarring -Moisture (Lisa-wound Skin Appearance Dry/Scaly ) -Color (Lisa-wound Skin Appearance) Hemosiderin Staining -Temperature (Lisa-wound Skin No Abnormality Appearance) (Pt Warm) -Tenderness on Palpation (Lisa-wound No Skin Appearance) -Ulcer Cleansing Wound Cleanser -Foul Odor after Cleansing No -Anesthetic Used 4% Lidocaine Solution [Edema Assessment] -Right Calf (cm) 37.2 -Right Ankle (cm) 21.6 -Left Calf (cm) 35.7 -Left Ankle (cm) 20.1 WC - Nurse 2 - General Ulcer CM Notes Start: 11/24/19 13:06 Freq: Status: Active Protocol: Activity Type Activity Date Activity User E-Sign Co-Sign Detail Recorded Client Recorded Date Recorded By Document 12/20/19 08:25 DL [id number] 12/20/19 08:28 DL 12/20/19 08:25 Wound Center Nurse 2 [Procedure/Treatment] 17-right [place] -Correct Patient No -Correct Side, Site, Position No -Correct Procedure No -Procedure Performed No -Post Debridement Size (cm) - Length 0 -Post Debridement Size (cm) - Width 0 -Post Debridement Size (cm) - Depth 0 -Total Square Cm 0 -Wound/Ulcer Outcome Healed- Epithelialized #14 R medial ankle -Time 08:26 -Correct Patient Yes -Correct Side, Site, Position Yes -Correct Procedure Yes -Procedure Performed Yes -Type of Procedure Debridement -Clinical Debridement Subcutaneous -Post Debridement Size (cm) - Length 1.2 -Post Debridement Size (cm) - Width 0.7 -Post Debridement Size (cm) - Depth 0.2 -Total Square Cm 0.84 -Wound/Ulcer Outcome Not Healed -Ulcer Cleansing Rinsed/ Irrigated with Saline -Foul Odor after Cleansing No -Bioengineered Tissue No -Bleeding Controlled with Pressure -Offloading Yes -Type of Offloading Camwalker -Treatment Response Procedure Tolerated Well #11 RIGHT MEDIAL FOOT -Time 08:26 -Correct Patient Yes -Correct Side, Site, Position Yes -Correct Procedure Yes -Procedure Performed Yes -Type of Procedure Debridement -Clinical Debridement Subcutaneous -Post Debridement Size (cm) - Length 1.2 -Post Debridement Size (cm) - Width 0.6 -Post Debridement Size (cm) - Depth 0.1 -Total Square Cm 0.72 -Wound/Ulcer Outcome Not Healed -Ulcer Cleansing Rinsed/ Irrigated with Saline -Foul Odor after Cleansing No -Bioengineered Tissue No -Bleeding Controlled with Pressure -Offloading Yes -Type of Offloading Camwalker -Treatment Response Procedure Tolerated Well #6 POSTERIOR LLE -Time 08:27 -Correct Patient Yes -Correct Side, Site, Position Yes -Correct Procedure Yes -Procedure Performed Yes -Type of Procedure Debridement -Clinical Debridement Subcutaneous -Post Debridement Size (cm) - Length 4.5 -Post Debridement Size (cm) - Width 1.1 -Post Debridement Size (cm) - Depth 0.1 -Total Square Cm 4.95 -Wound/Ulcer Outcome Not Healed -Ulcer Cleansing Rinsed/ Irrigated with Saline -Foul Odor after Cleansing No -Bioengineered Tissue No -Bleeding Controlled with Pressure -Offloading Yes -Type of Offloading Camwalker -Treatment Response Procedure Tolerated Well #4 POSTERIOR RLE -Time 08:27 -Correct Patient Yes -Correct Side, Site, Position Yes -Correct Procedure Yes -Procedure Performed Yes -Type of Procedure Debridement -Clinical Debridement Subcutaneous -Post Debridement Size (cm) - Length 12.1 -Post Debridement Size (cm) - Width 2.1 -Post Debridement Size (cm) - Depth 0.3 -Total Square Cm 25.41 -Wound/Ulcer Outcome Not Healed -Ulcer Cleansing Rinsed/ Irrigated with Saline -Foul Odor after Cleansing No -Bioengineered Tissue No -Bleeding Controlled with Pressure -Offloading Yes -Type of Offloading Camwalker -Treatment Response Procedure Tolerated Well [See Physician Procedure note for Specifics] Pain Scale: 0-10 Numeric [Pain] -Is Patient Pain Free? Yes Musculoskeletal: No Tenderness to Palpation of Joints or Extremities, Muscle Wasting Neurological: - - lack of normal epiciritic sensation via light touch Psych/Mental Status: Normal Affect, Appropriate Debridement Note Post-Debridement Measurements/Treatment WC - Nurse 2 - General Ulcer CM Notes Start: 11/24/19 13:06 Freq: Status: Active Protocol: Activity Type Activity Date Activity User E-Sign Co-Sign Detail Recorded Client Recorded Date Recorded By Document 11/24/19 13:16 JAMAL [id number] 11/24/19 13:21 JF Document 11/29/19 08:48 JF [id number] 11/29/19 08:52 JF Document 12/06/19 08:41 JF [id number] 12/06/19 08:45 JF Document 12/13/19 09:53 JF [id number] 12/13/19 09:57 JF Document 12/20/19 08:25 DL [id number] 12/20/19 08:28 DL 11/24/19 11/29/19 12/06/19 13:16 08:48 08:41 Wound Center Nurse 2 17-right [place] -Time 08:52 08:43 -Correct Patient Yes Yes -Correct Side, Site, Position Yes Yes -Correct Procedure Yes Yes -Procedure Performed Yes Yes -Type of Procedure Debridement Debridement -Clinical Debridement Subcutaneous Subcutaneous -Post Debridement Size (cm) - Length 0.7 1 -Post Debridement Size (cm) - Width 0.6 0.6 -Post Debridement Size (cm) - Depth 0.1 0.1 -Total Square Cm 0.42 0.6 -Wound/Ulcer Outcome Not Healed Not Healed -Ulcer Cleansing Rinsed/ Rinsed/ Irrigated with Irrigated with Saline Saline -Foul Odor after Cleansing No No -Bioengineered Tissue No No -Bleeding Controlled with Pressure Pressure -Offloading No Yes -Type of Offloading Camwalker -Treatment Response Procedure Procedure Tolerated Well Tolerated Well #14 R medial ankle -Time 13:17 08:49 08:43 -Correct Patient Yes Yes Yes -Correct Side, Site, Position Yes Yes Yes -Correct Procedure Yes Yes Yes -Procedure Performed Yes Yes Yes -Type of Procedure Debridement Debridement Debridement -Clinical Debridement Subcutaneous Subcutaneous Subcutaneous -Post Debridement Size (cm) - Length 1.1 2 1 -Post Debridement Size (cm) - Width 0.6 0.7 0.5 -Post Debridement Size (cm) - Depth 0.2 0.1 0.1 -Total Square Cm 0.66 1.4 0.5 -Wound/Ulcer Outcome Not Healed Not Healed Not Healed -Ulcer Cleansing Rinsed/ Rinsed/ Rinsed/ Irrigated with Irrigated with Irrigated with Saline Saline Saline -Foul Odor after Cleansing No No No -Bioengineered Tissue No No No -Bleeding Controlled with Pressure Pressure Pressure -Offloading No No Yes -Type of Offloading Camwalker -Treatment Response Procedure Procedure Procedure Tolerated Well Tolerated Well Tolerated Well #11 RIGHT MEDIAL FOOT -Time 13:17 08:50 08:43 -Correct Patient Yes Yes Yes -Correct Side, Site, Position Yes Yes Yes -Correct Procedure Yes Yes Yes -Procedure Performed Yes Yes Yes -Type of Procedure Debridement Debridement Debridement -Clinical Debridement Subcutaneous Subcutaneous Subcutaneous -Post Debridement Size (cm) - Length 1.8 1.6 1.5 -Post Debridement Size (cm) - Width 1 0.9 1.9 -Post Debridement Size (cm) - Depth 0.2 0.1 0.1 -Total Square Cm 1.8 1.44 2.85 -Wound/Ulcer Outcome Not Healed Not Healed Not Healed -Ulcer Cleansing Rinsed/ Rinsed/ Rinsed/ Irrigated with Irrigated with Irrigated with Saline Saline Saline -Foul Odor after Cleansing No No No -Bioengineered Tissue No No No -Bleeding Controlled with Pressure Pressure Pressure -Offloading No No Yes -Type of Offloading Camwalker -Treatment Response Procedure Procedure Procedure Tolerated Well Tolerated Well Tolerated Well #6 POSTERIOR LLE -Time 13:17 08:50 08:44 -Correct Patient Yes Yes Yes -Correct Side, Site, Position Yes Yes Yes -Correct Procedure Yes Yes Yes -Procedure Performed Yes Yes Yes -Type of Procedure Debridement Debridement Debridement -Clinical Debridement Subcutaneous Subcutaneous Subcutaneous -Post Debridement Size (cm) - Length 5.8 6.1 14 -Post Debridement Size (cm) - Width 1 1 1.1 -Post Debridement Size (cm) - Depth 0.3 0.2 0.3 -Total Square Cm 5.8 6.1 15.4 -Wound/Ulcer Outcome Not Healed Not Healed Not Healed -Ulcer Cleansing Rinsed/ Rinsed/ Rinsed/ Irrigated with Irrigated with Irrigated with Saline Saline Saline -Foul Odor after Cleansing No No No -Bioengineered Tissue No No No -Bleeding Controlled with Pressure Pressure Pressure -Offloading No No Yes -Type of Offloading Camwalker -Treatment Response Procedure Procedure Procedure Tolerated Well Tolerated Well Tolerated Well #4 POSTERIOR RLE -Time 13:18 08:50 08:44 -Correct Patient Yes Yes Yes -Correct Side, Site, Position Yes Yes Yes -Correct Procedure Yes Yes Yes -Procedure Performed Yes Yes Yes -Type of Procedure Debridement Debridement Debridement -Clinical Debridement Subcutaneous Subcutaneous Subcutaneous -Post Debridement Size (cm) - Length 11.5 12.2 14.5 -Post Debridement Size (cm) - Width 3.1 2.6 2.9 -Post Debridement Size (cm) - Depth 0.3 0.3 0.3 -Total Square Cm 35.65 31.72 42.05 -Wound/Ulcer Outcome Not Healed Not Healed Not Healed -Ulcer Cleansing Rinsed/ Rinsed/ Rinsed/ Irrigated with Irrigated with Irrigated with Saline Saline Saline -Foul Odor after Cleansing No No No -Bioengineered Tissue No No No -Bleeding Controlled with Pressure Pressure Pressure -Offloading No No Yes -Type of Offloading Camwalker -Treatment Response Procedure Procedure Procedure Tolerated Well Tolerated Well Tolerated Well #1 RIGHT GRT TOE/2ND TOE WEB SPACE -Correct Patient No -Correct Side, Site, Position No -Correct Procedure No -Procedure Performed No -Post Debridement Size (cm) - Length 0 -Post Debridement Size (cm) - Width 0 -Post Debridement Size (cm) - Depth 0 -Total Square Cm 0 -Wound/Ulcer Outcome Healed- Epithelialized Pain Scale: 0-10 Numeric Is Patient Pain Free? Yes Yes Yes 12/13/19 12/20/19 09:53 08:25 Wound Center Nurse 2 17-right [place] -Time -Correct Patient No No -Correct Side, Site, Position No No -Correct Procedure No No -Procedure Performed No No -Type of Procedure -Clinical Debridement -Post Debridement Size (cm) - Length 0 -Post Debridement Size (cm) - Width 0 -Post Debridement Size (cm) - Depth 0 -Total Square Cm 0 -Wound/Ulcer Outcome Not Healed Healed- Epithelialized -Ulcer Cleansing -Foul Odor after Cleansing -Bioengineered Tissue -Bleeding Controlled with -Offloading -Type of Offloading -Treatment Response #14 R medial ankle -Time 09:54 08:26 -Correct Patient Yes Yes -Correct Side, Site, Position Yes Yes -Correct Procedure Yes Yes -Procedure Performed Yes Yes -Type of Procedure Debridement Debridement -Clinical Debridement Subcutaneous Subcutaneous -Post Debridement Size (cm) - Length 0.7 1.2 -Post Debridement Size (cm) - Width 0.3 0.7 -Post Debridement Size (cm) - Depth 0.1 0.2 -Total Square Cm 0.21 0.84 -Wound/Ulcer Outcome Not Healed Not Healed -Ulcer Cleansing Rinsed/ Rinsed/ Irrigated with Irrigated with Saline Saline -Foul Odor after Cleansing No No -Bioengineered Tissue No No -Bleeding Controlled with Pressure Pressure -Offloading No Yes -Type of Offloading Camwalker -Treatment Response Procedure Procedure Tolerated Well Tolerated Well #11 RIGHT MEDIAL FOOT -Time 09:54 08:26 -Correct Patient Yes Yes -Correct Side, Site, Position Yes Yes -Correct Procedure Yes Yes -Procedure Performed Yes Yes -Type of Procedure Debridement Debridement -Clinical Debridement Subcutaneous Subcutaneous -Post Debridement Size (cm) - Length 2.1 1.2 -Post Debridement Size (cm) - Width 1.6 0.6 -Post Debridement Size (cm) - Depth 0.1 0.1 -Total Square Cm 3.36 0.72 -Wound/Ulcer Outcome Not Healed Not Healed -Ulcer Cleansing Rinsed/ Rinsed/ Irrigated with Irrigated with Saline Saline -Foul Odor after Cleansing No No -Bioengineered Tissue No No -Bleeding Controlled with Pressure Pressure -Offloading No Yes -Type of Offloading Camwalker -Treatment Response Procedure Procedure Tolerated Well Tolerated Well #6 POSTERIOR LLE -Time 09:55 08:27 -Correct Patient Yes Yes -Correct Side, Site, Position Yes Yes -Correct Procedure Yes Yes -Procedure Performed Yes Yes -Type of Procedure Debridement Debridement -Clinical Debridement Subcutaneous Subcutaneous -Post Debridement Size (cm) - Length 4.1 4.5 -Post Debridement Size (cm) - Width 2.3 1.1 -Post Debridement Size (cm) - Depth 0.1 0.1 -Total Square Cm 9.43 4.95 -Wound/Ulcer Outcome Not Healed Not Healed -Ulcer Cleansing Rinsed/ Rinsed/ Irrigated with Irrigated with Saline Saline -Foul Odor after Cleansing No No -Bioengineered Tissue No No -Bleeding Controlled with Pressure Pressure -Offloading No Yes -Type of Offloading Camwalker -Treatment Response Procedure Procedure Tolerated Well Tolerated Well #4 POSTERIOR RLE -Time 09:55 08:27 -Correct Patient Yes Yes -Correct Side, Site, Position Yes Yes -Correct Procedure Yes Yes -Procedure Performed Yes Yes -Type of Procedure Debridement Debridement -Clinical Debridement Subcutaneous Subcutaneous -Post Debridement Size (cm) - Length 11.4 12.1 -Post Debridement Size (cm) - Width 3.4 2.1 -Post Debridement Size (cm) - Depth 0.3 0.3 -Total Square Cm 38.76 25.41 -Wound/Ulcer Outcome Not Healed Not Healed -Ulcer Cleansing Rinsed/ Rinsed/ Irrigated with Irrigated with Saline Saline -Foul Odor after Cleansing No No -Bioengineered Tissue No No -Bleeding Controlled with Pressure Pressure -Offloading No Yes -Type of Offloading Camwalker -Treatment Response Procedure Procedure Tolerated Well Tolerated Well #1 RIGHT GRT TOE/2ND TOE WEB SPACE -Correct Patient -Correct Side, Site, Position -Correct Procedure -Procedure Performed -Post Debridement Size (cm) - Length -Post Debridement Size (cm) - Width -Post Debridement Size (cm) - Depth -Total Square Cm -Wound/Ulcer Outcome Pain Scale: 0-10 Numeric Is Patient Pain Free? Yes Yes Wound debrided: medial foot, medial foot (proximal), posterior leg Laterality: Right Wound Grade/Stage: grade 3 Type of Debridement: Excisional debridement Anesthesia Used: 5% Lidocaine Gel Depth: in the subcutaneous layer Percentage of wound debrided: 100 Instrument Used: #15 blade Tissue Removed: fibrous, devitalized subcutaneous, biofilm, slough Severity: Fat Layer Exposed Amount of bleeding with debridement: Mild Bleeding Controlled with: Pressure Patient tolerated procedure well - Additional Wound Wound debrided: posterior leg Laterality: Left Wound Grade/Stage: grade 2 Type of Debridement: Excisional debridement Anesthesia Used: 5% Lidocaine Gel Depth: in the subcutaneous layer Percentage of wound debrided: 100 Instrument Used: #15 blade Tissue Removed: fibrous, devitalized subcutaneous, biofilm, slough Severity: Fat Layer Exposed Amount of bleeding with debridement: Mild Bleeding Controlled with: Pressure Patient tolerated procedure: Patient tolerated procedure well Assessment/Plan Active Problems (Last Updated 09/28/18 @ 12:41 by Geraldine Steele) Type 2 diabetes mellitus with foot ulcer (Chronic) Ulcer of right foot with fat layer exposed (Chronic) Ulcer of right lower extremity with fat layer exposed (Chronic) Tobacco dependence due to cigarettes (Chronic) Ulcer of left lower extremity with fat layer exposed (Chronic) Type 2 diabetes mellitus with diabetic polyneuropathy (Chronic) Localized edema (Chronic) Malnutrition (Chronic) Assessment: -right anterior leg ulcer, no infection. -Now status post operating room excisional subcutaneous and tendon debridements to bilateral legs and right foot with additional application of advanced wound healing products to bilateral posterior lower legs--no infection and stable today -improvement noted. 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 -previous bilateral leg fasciotomies and debridements and irrigation performed previously now with right and left leg ulcers with fat and tendon layers exposed. -diabetic neuropathy. -malnutrition suspected. 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 -delayed healing. -gait impairment and fall risk. -other comorbidities. -Continued smoking habits Plan: I reviewed and discussed his case today. His surgical site was evaluated and the advanced wound healing product appears to be incorporating well. This is stable. Debridement was performed as noted in the clinical panel. To change daily with [email or web address]. Advanced wound healing product approval will be confirmed for application next week after additional debridement. I recommend epi-fix application. He has demonstrated significant delays in healing under his prior comprehensive wound healing plan. He was reassured no local or systemic signs of illness is suspected today. To continue increased protein intake with nutritional supplementation. To continue glycemic control. He had a previous arterial Doppler scheduled with Dr. Morgan's staff on August 02, 2018 and overall perfusion was confirmed; additional intervention or workup was not recommended. It is also noted that he did have venous Doppler performed with reflux evaluation. He did not have evidence of deep venous thrombosis or venous insufficiency at that time; the vessels were compressible. I recommend he sustained from smoking and alcohol activities to optimize healing as well. This is discussed at length again today and he defers smoking cessation referral program. He decreased his habits from 20 cigarettes a day to 10 and I encouraged him to strive for 5 or less. Prior workup summary: His workup for vasculitis and underlying autoimmune disorder has been completed. A punch biopsy was sent during his last surgical intervention on June 10 and this demonstrated inflammatory changes without malignancy. He had initial screening labs and so far he has a negative RA titer, HL of the 27, KEVIN, anti-CCP, and rheumatoid factor. Several his antibody screenings were not reportable. Hyperbaric oxygen therapy was recommended and it is noted his ejection fraction was most recently 50%. He refuses at this time. . I answered his questions. To return to the wound healing center in 1 week. To call sooner if he has any q uestions or concerns. . Quality measures reviewed as the following: Updated today: Medication and allergy reconciliation, pain status and follow- up plan. Reviewed on 11-29-2019: up-to-date pneumonia vaccination status, he has not up-to-date influenza immunization performed in 09/2019, he does have a living will on file. He is a smoker and smoking cessation was reviewed. He does have elevated blood pressure at or above 120/80 mmHg and also elevated body mass index. For these issues I recommend he follows up with his primary care physician as scheduled. He was counseled on the importance of diet and exercise as well. Quality measures reviewed as the following: Updated today: Medication and allergy reconciliation, pain status and follow-up plan. Reviewed on 11-29-2019: up-to-date pneumonia vaccination status, he has not up-to-date influenza immunization performed in 09/2019, he does have a living will on file. He is a smoker and smoking cessation was reviewed. He does have elevated blood pressure at or above 120/80 mmHg and also elevated body mass index. For these issues I recommend he follows up with his primary care physician as scheduled. He was counseled on the importance of diet and exercise as well.
== END 2019-12-22 23:59 ==
LOC: WC 08:00
PROVIDERS: Family Provider Family Medicine; PCP Family Medicine; Visit Provider Podiatrist
DX: E11.621 Type 2 diabetes mellitus with foot ulcer (principal); E11.622 Type 2 diabetes mellitus with other skin ulcer; E11.42 Type 2 diabetes mellitus with diabetic polyneuropathy; L97.822 Non-pressure chronic ulcer of other part of left lower leg with fat layer exposed; L97.412 Non-pressure chronic ulcer of right heel and midfoot with fat layer exposed; F17.210 Nicotine dependence, cigarettes, uncomplicated; L97.812 Non-pressure chronic ulcer of other part of right lower leg with fat layer exposed
CPT/HCPCS: 11042; 11045

== ENCOUNTER 2020-01-17 08:00 | Outpatient (RCR) | payer MEDICARE, SELFPAY ==
[2019-12-23 00:30] VITALS: BP 144/90; PULSE 92; RESP 20; TEMP 35.7
[2020-01-03 08:29] VITALS: BP 141/93; PULSE 101; RESP 18; TEMP 36.1; BMI 32.3
--- NOTE | 2020-01-03 10:07 | PN.PCM_ITS ---
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 Current Visit: Yes Code(s): L97.913 - Non-pressure chronic ulcer of unspecified part of right lower leg with necrosis of muscle (2) Delayed wound healing Status: Chronic Current Visit: Yes Code(s): T14.8XXD - Other injury of unspecified body region, subsequent encounter (3) Malnutrition Status: Chronic Current Visit: Yes Code(s): E46 - Unspecified protein- calorie malnutrition (4) Non-pressure chronic ulcer of other part of right foot with fat layer exposed Status: Chronic Current Visit: Yes Code(s): L97.512 - Non-pressure chronic ulcer of other part of right foot with fat layer exposed (5) Type 2 diabetes mellitus with diabetic polyneuropathy Status: Chronic Current Visit: Yes Code(s): E11.42 - Type 2 diabetes mellitus with diabetic polyneuropathy (6) Ulcer of left lower extremity with fat layer exposed Status: Chronic Current Visit: Yes Code(s): L97.922 - Non-pressure chronic ulcer of unspecified part of left lower leg with fat layer exposed (7) Ulcer of right foot with fat layer exposed Status: Chronic Current Visit: Yes Code(s): L97.512 - Non-pressure chronic ulcer of other part of right foot with fat layer exposed (8) Ulcer of right lower extremity with fat layer exposed Status: Chronic Current Visit: Yes Code(s): L97.912 - Non-pressure chronic ulcer of unspecified part of right lower leg with fat layer exposed Type of Wound Date of Service: 01/03/20 Chief Complaint: right and left Leg ulcers and right foot ulcers. History of Wound: Mr. Arguello is a 64-year-old male with multiple comorbidities follows up for delayed healing ulcers to the right foot as well as bilateral legs. These are chronic and he has had previous remote surgical intervention. He had prior operating room debridement with application of advanced wound products. He denies chills, fever, nausea, or vomiting. He presents today with his . He refuses hyperbaric oxygen therapy treatment. He denies odor or redness. He relates complete resolution of pain; /10. He denies new injuries. He denies pain, redness, or odor. States overall feeling better. Progress of Wound: improving bilateral - Physical Exam Vital Signs Temp Pulse Resp BP 97 F L 101 H 18 141/93 H 01/03/20 08:29 01/03/20 08:29 01/03/20 08:29 01/03/20 08:29 General: Alert, Oriented x3, Cooperative, No apparent distress Extremities: No cyanosis, Capillary Refill Less than 3 Seconds, No Calf Tenderness, Diminished Peripheral Pulses, Edema Skin: Ulcer/ Wound - No purulence, erythema, string, odor, infection. There is only callus with mild serous seeping some hemorrhagic scant tissue to the proximal medial foot ulcer site. The other ulcer sites have granular bases and are reducing in size. The adjacent skin is hairless and atrophic Wound Measurements and Assessment WC - Nurse 1 - General Ulcer Measurement Start: 01/03/20 08:29 Freq: Status: Active Protocol: Activity Type Activity Date Activity User E-Sign Co-Sign Detail Recorded Client Recorded Date Recorded By Document 01/03/20 08:29 RB [id number] 01/03/20 08:47 RB 01/03/20 08:29 Wound Center Nurse 1 [Ulcer Assessment] #14 R medial ankle -Combined with other wound No -Current Size (cm) - Length 0.1 -Current Size (cm) - Width 0.1 -Current Size (cm) - Depth 0.1 -Total Square Cm 0.01 -Tunneling No -Undermining/Tunneling No -Circular Undermining No -Exudate Amt None Present -Granulation Amt Medium (34-66%) -Granulation Quality Rawlings,Red -Slough/Fibrin Yes -Necrosis Amt Small (1-33%) -Necrotic Tissue Type Adherent Slough -Structure Exposed N/A -Texture (Lisa-wound Skin Appearance) Assessed -Moisture (Lisa-wound Skin Appearance Assessed ) -Color (Lisa-wound Skin Appearance) Assessed -Temperature (Lisa-wound Skin No Abnormality Appearance) (Pt Warm) -Tenderness on Palpation (Lisa-wound No Skin Appearance) -Ulcer Cleansing Wound Cleanser -Foul Odor after Cleansing No -Anesthetic Used 4% Lidocaine Solution #11 RIGHT MEDIAL FOOT -Combined with other wound No -Current Size (cm) - Length 1 -Current Size (cm) - Width 0.6 -Current Size (cm) - Depth 0.1 -Total Square Cm 0.6 -Tunneling No -Undermining/Tunneling No -Circular Undermining No -Exudate Amt Small -Exudate Type Serosanguineous -Wound Margin Thickened -Necrosis Amt Medium (34-66%) -Necrotic Tissue Type Adherent Slough -Structure Exposed N/A -Texture (Lisa-wound Skin Appearance) Assessed -Moisture (Lisa-wound Skin Appearance Dry/Scaly ) -Color (Lisa-wound Skin Appearance) Assessed -Temperature (Lisa-wound Skin No Abnormality Appearance) (Pt Warm) -Tenderness on Palpation (Lisa-wound No Skin Appearance) -Ulcer Cleansing Wound Cleanser -Foul Odor after Cleansing No -Anesthetic Used 4% Lidocaine Solution #6 POSTERIOR LLE -Combined with other wound No -Current Size (cm) - Length 5 -Current Size (cm) - Width 1 -Current Size (cm) - Depth 0.1 -Total Square Cm 5 -Tunneling No -Undermining/Tunneling No -Circular Undermining No -Exudate Amt Small -Exudate Type Serosanguineous -Wound Margin Flat & Intact -Granulation Amt Medium (34-66%) -Granulation Quality Rawlings -Slough/Fibrin Yes -Necrosis Amt Medium (34-66%) -Necrotic Tissue Type Adherent Slough -Structure Exposed N/A -Texture (Lisa-wound Skin Appearance) Assessed -Moisture (Lisa-wound Skin Appearance Dry/Scaly ) -Color (Lisa-wound Skin Appearance) Assessed -Temperature (Lisa-wound Skin No Abnormality Appearance) (Pt Warm) -Tenderness on Palpation (Lisa-wound No Skin Appearance) -Ulcer Cleansing Wound Cleanser -Foul Odor after Cleansing No -Anesthetic Used 4% Lidocaine Solution #4 POSTERIOR RLE -Combined with other wound No -Current Size (cm) - Length 12.5 -Current Size (cm) - Width 2.5 -Current Size (cm) - Depth 0.5 -Total Square Cm 31.25 -Tunneling No -Undermining/Tunneling No -Circular Undermining No -Exudate Amt Small -Exudate Type Serosanguineous -Wound Margin Flat & Intact -Granulation Amt Medium (34-66%) -Granulation Quality Rawlings -Slough/Fibrin Yes -Necrosis Amt Small (1-33%) -Necrotic Tissue Type Adherent Slough -Structure Exposed N/A -Texture (Lisa-wound Skin Appearance) Assessed -Moisture (Lisa-wound Skin Appearance Dry/Scaly ) -Color (Lisa-wound Skin Appearance) Assessed -Temperature (Lisa-wound Skin No Abnormality Appearance) (Pt Warm) -Tenderness on Palpation (Lisa-wound No Skin Appearance) -Ulcer Cleansing Wound Cleanser -Foul Odor after Cleansing No -Anesthetic Used 4% Lidocaine Solution [Edema Assessment] -Lower Limb Edema Present Yes -Right Calf (cm) 37 -Right Ankle (cm) 22.3 -Left Calf (cm) 36.5 -Left Ankle (cm) 20.5 WC - Nurse 2 - General Ulcer CM Notes Start: 01/03/20 08:29 Freq: Status: Active Protocol: Activity Type Activity Date Activity User E-Sign Co-Sign Detail Recorded Client Recorded Date Recorded By Document 01/03/20 09:00 JAMAL [id number] 01/03/20 09:07 JAMAL 01/03/20 09:00 Wound Center Nurse 2 [Procedure/Treatment] #14 R medial ankle -Time 09:01 -Correct Patient Yes -Correct Side, Site, Position Yes -Correct Procedure Yes -Procedure Performed Yes -Type of Procedure Debridement -Clinical Debridement Selective -Post Debridement Size (cm) - Length 0.1 -Post Debridement Size (cm) - Width 0.1 -Post Debridement Size (cm) - Depth 0.1 -Total Square Cm 0.01 -Wound/Ulcer Outcome Not Healed -Ulcer Cleansing Rinsed/ Irrigated with Saline -Foul Odor after Cleansing No -Bioengineered Tissue No -Bleeding Controlled with Pressure -Offloading No -Treatment Response Procedure Tolerated Well #11 RIGHT MEDIAL FOOT -Time 09:01 -Correct Patient Yes -Correct Side, Site, Position Yes -Correct Procedure Yes -Procedure Performed Yes -Type of Procedure Debridement -Clinical Debridement Subcutaneous -Post Debridement Size (cm) - Length 1 -Post Debridement Size (cm) - Width 0.7 -Post Debridement Size (cm) - Depth 0 -Total Square Cm 0.7 -Wound/Ulcer Outcome Not Healed -Ulcer Cleansing Rinsed/ Irrigated with Saline -Foul Odor after Cleansing No -Bioengineered Tissue No -Bleeding Controlled with Pressure -Offloading No -Treatment Response Procedure Tolerated Well #6 POSTERIOR LLE -Time 09:02 -Correct Patient Yes -Correct Side, Site, Position Yes -Correct Procedure Yes -Procedure Performed Yes -Type of Procedure Debridement -Clinical Debridement Subcutaneous -Post Debridement Size (cm) - Length 5.1 -Post Debridement Size (cm) - Width 1 -Post Debridement Size (cm) - Depth 0.1 -Total Square Cm 5.1 -Wound/Ulcer Outcome Not Healed -Ulcer Cleansing Rinsed/ Irrigated with Saline -Foul Odor after Cleansing No -Bioengineered Tissue No -Bleeding Controlled with Pressure -Offloading No -Treatment Response Procedure Tolerated Well #4 POSTERIOR RLE -Time 09:02 -Correct Patient Yes -Correct Side, Site, Position Yes -Correct Procedure Yes -Procedure Performed Yes -Type of Procedure Debridement -Clinical Debridement Subcutaneous -Post Debridement Size (cm) - Length 12.5 -Post Debridement Size (cm) - Width 2.6 -Post Debridement Size (cm) - Depth 0.4 -Total Square Cm 32.50 -Wound/Ulcer Outcome Amputation -Ulcer Cleansing Rinsed/ Irrigated with Saline -Foul Odor after Cleansing No -Bioengineered Tissue No -Bleeding Controlled with Pressure -Offloading No -Treatment Response Procedure Tolerated Well [See Physician Procedure note for Specifics] Pain Scale: 0-10 Numeric [Pain] -Is Patient Pain Free? Yes Musculoskeletal: No Tenderness to Palpation of Joints or Extremities, Muscle Wasting Neurological: - - Lack of epicritic sensation light touch consistent with neuropathy status Psych/Mental Status: Normal Affect, Appropriate Debridement Note Post-Debridement Measurements/Treatment WC - Nurse 2 - General Ulcer CM Notes Start: 01/03/20 08:29 Freq: Status: Active Protocol: Activity Type Activity Date Activity User E-Sign Co-Sign Detail Recorded Client Recorded Date Recorded By Document 01/03/20 09:00 JAMAL [id number] 01/03/20 09:07 JAMAL 01/03/20 09:00 Wound Center Nurse 2 #14 R medial ankle -Time 09:01 -Correct Patient Yes -Correct Side, Site, Position Yes -Correct Procedure Yes -Procedure Performed Yes -Type of Procedure Debridement -Clinical Debridement Selective -Post Debridement Size (cm) - Length 0.1 -Post Debridement Size (cm) - Width 0.1 -Post Debridement Size (cm) - Depth 0.1 -Total Square Cm 0.01 -Wound/Ulcer Outcome Not Healed -Ulcer Cleansing Rinsed/ Irrigated with Saline -Foul Odor after Cleansing No -Bioengineered Tissue No -Bleeding Controlled with Pressure -Offloading No -Treatment Response Procedure Tolerated Well #11 RIGHT MEDIAL FOOT -Time 09:01 -Correct Patient Yes -Correct Side, Site, Position Yes -Correct Procedure Yes -Procedure Performed Yes -Type of Procedure Debridement -Clinical Debridement Subcutaneous -Post Debridement Size (cm) - Length 1 -Post Debridement Size (cm) - Width 0.7 -Post Debridement Size (cm) - Depth 0 -Total Square Cm 0.7 -Wound/Ulcer Outcome Not Healed -Ulcer Cleansing Rinsed/ Irrigated with Saline -Foul Odor after Cleansing No -Bioengineered Tissue No -Bleeding Controlled with Pressure -Offloading No -Treatment Response Procedure Tolerated Well #6 POSTERIOR LLE -Time 09:02 -Correct Patient Yes -Correct Side, Site, Position Yes -Correct Procedure Yes -Procedure Performed Yes -Type of Procedure Debridement -Clinical Debridement Subcutaneous -Post Debridement Size (cm) - Length 5.1 -Post Debridement Size (cm) - Width 1 -Post Debridement Size (cm) - Depth 0.1 -Total Square Cm 5.1 -Wound/Ulcer Outcome Not Healed -Ulcer Cleansing Rinsed/ Irrigated with Saline -Foul Odor after Cleansing No -Bioengineered Tissue No -Bleeding Controlled with Pressure -Offloading No -Treatment Response Procedure Tolerated Well #4 POSTERIOR RLE -Time 09:02 -Correct Patient Yes -Correct Side, Site, Position Yes -Correct Procedure Yes -Procedure Performed Yes -Type of Procedure Debridement -Clinical Debridement Subcutaneous -Post Debridement Size (cm) - Length 12.5 -Post Debridement Size (cm) - Width 2.6 -Post Debridement Size (cm) - Depth 0.4 -Total Square Cm 32.50 -Wound/Ulcer Outcome Amputation -Ulcer Cleansing Rinsed/ Irrigated with Saline -Foul Odor after Cleansing No -Bioengineered Tissue No -Bleeding Controlled with Pressure -Offloading No -Treatment Response Procedure Tolerated Well Pain Scale: 0-10 Numeric Is Patient Pain Free? Yes Wound debrided: medial distal foot, posterior leg Laterality: Right Wound Grade/Stage: grade 3 Type of Debridement: Excisional debridement Anesthesia Used: 5% Lidocaine Gel Depth: in the subcutaneous layer Percentage of wound debrided: 100 Instrument Used: #15 blade Tissue Removed: Fibrous, devitalized subcutaneous, biofilm, slough Severity: Fat Layer Exposed Amount of bleeding with debridement: Mild Bleeding Controlled with: Pressure Patient tolerated procedure well - Additional Wound Wound debrided: medial proximal foot Laterality: Right Wound Grade/Stage: grade 3 Type of Debridement: Selective debridement Anesthesia Used: 5% Lidocaine Gel Depth: in the subcutaneous layer Percentage of wound debrided: 100 Instrument Used: #15 blade Tissue Removed: Fibrous, devitalized subcutaneous, biofilm, slough Severity: Fat Layer Exposed Amount of bleeding with debridement: Mild Bleeding Controlled with: Pressure Patient tolerated procedure: Patient tolerated procedure well - Additional Wound Wound debrided: posterior leg Laterality: Left Wound Grade/Stage: grade 2 Type of Debridement: Excisional debridement Anesthesia Used: 5% Lidocaine Gel Depth: in the subcutaneous layer Percentage of wound debrided: 100 Instrument Used: #15 blade Tissue Removed: Fibrous, devitalized subcutaneous, biofilm, slough Severity: Fat Layer Exposed Amount of bleeding with debridement: Mild Bleeding Controlled with: Pressure Patient tolerated procedure: Patient tolerated procedure well Assessment/Plan Active Problems (Last Updated 09/28/18 @ 12:41 by Geraldine Steele) Non-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) Ulcer of right foot with fat layer exposed (Chronic) 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 - previous bilateral leg fasciotomies and debridements and irrigation performed previously now with right and left leg ulcers with fat and tendon layers exposed. -diabetic neuropathy. -malnutrition suspected. 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 -delayed healing. -gait impairment and fall risk. -other comorbidities. -Continued smoking habits Plan: I reviewed and discussed his case today. His surgical site was evaluated and the advanced wound healing product appears to be incorporating well. This is stable. Debridement was performed as noted in the clinical panel. To change daily with [employer]. He has demonstrated significant delays in healing under his prior comprehensive wound healing plan. He was reassured no local or systemic signs of illness is suspected today. To continue increased protein intake with nutritional supplementation. To continue glycemic control. He had a previous arterial Doppler scheduled with Dr. Morgan's staff on August 02, 2018 and overall perfusion was confirmed; additional intervention or workup was not recommended. It is also noted that he did have venous Doppler performed with reflux evaluation. He did not have evidence of deep venous thrombosis or venous insufficiency at that time; the vessels were compressible. I recommend he sustained from smoking and alcohol activities to optimize healing as well. This is discussed at length again today and he defers smoking cessation referral program. He decreased his habits from 20 cigarettes a day to 10 and I encouraged him to strive for 5 or less. Prior workup summary: His workup for vasculitis and underlying autoimmune disorder has been completed. A punch biopsy was sent during his last surgical intervention on June 10 and this demonstrated inflammatory changes without malignancy. He had initial screening labs and so far he has a negative RA titer, HL of the 27, KEVIN, anti-CCP, and rheumatoid factor. Several his antibody screenings were not reportable. Hyperbaric oxygen therapy was recommended and it is noted his ejection fraction was most recently 50%. He refuses at this time. . I answered his questions. To return to the wound healing center in 1 week. To call sooner if he has any questions or concerns. . Quality measures reviewed as the following: Updated today: Medication and allergy reconciliation, pain status and follow-up plan. Reviewed on 11-29-2019: up-to-date pneumonia vaccination status, he has not up-to-date influenza immunization performed in 09/2019, he does have a living will on file. He is a smoker and smoking cessation was reviewed. He does have elevated blood pressure at or above 120/80 mmHg and also elevated body mass index. For these issues I recommend he follows up with his primary care physician as scheduled. He was counseled on the importance of diet and exercise as well. Quality measures reviewed as the following: Updated today: Medication and allergy reconciliation, pain status and follow-up plan. Reviewed on 11-29-2019: up-to-date pneumonia vaccination status, he has not up-to-date influenza immunization performed in 09/2019, he does have a living will on file. He is a smoker and smoking cessation was reviewed. He does have elevated blood pressure at or above 120/80 mmHg and also elevated body mass index. For these issues I recommend he follows up with his primary care physic erick as scheduled. He was counseled on the importance of diet and exercise as well.
[2020-01-10 08:06] VITALS: BP 120/92; PULSE 82; RESP 20; TEMP 36; BMI 32.3
--- NOTE | 2020-01-10 16:38 | PCM.WC.PN ---
(1) Delayed wound healing Status: Chronic Current Visit: Yes Code(s): T14.8XXD - Other injury of unspecified body region, subsequent encounter (2) Malnutrition Status: Chronic Current Visit: Yes Code(s): E46 - Unspecified protein-calorie malnutrition (3) Type 2 diabetes mellitus with diabetic polyneuropathy Status: Chronic Current Visit: Yes Code(s): E11.42 - Type 2 diabetes mellitus with diabetic polyneuropathy (4) Ulcer of left lower extremity with fat layer exposed Status: Chronic Current Visit: Yes Code(s): L97.922 - Non-pressure chronic ulcer of unspecified part of left lower leg with fat layer exposed (5) Ulcer of right foot with fat layer exposed Status: Chronic Current Visit: Yes Code(s): L97.512 - Non-pressure chronic ulcer of other part of right foot with fat layer exposed (6) Ulcer of right lower extremity with fat layer exposed Status: Chronic Current Visit: Yes Code(s): L97.912 - Non-pressure chronic ulcer of unspecified part of right lower leg with fat layer exposed Type of Wound Date of Service: 01/10/20 Chief Complaint: right and left Leg ulcers and right foot ulcers. History of Wound: Mr. Arguello is a 64-year-old male with multiple comorbidities follows up for delayed healing ulcers to the right foot as well as bilateral legs. These are chronic and he has had previous remote surgical intervention. He had prior operating room debridement with application of advanced wound products. He denies chills, fever, nausea, or vomiting. He presents today with his . He refuses hyperbaric oxygen therapy treatment. He denies odor or redness. He relates complete resolution of pain; 01/01. He denies new injuries. He denies pain, redness, or odor. Progress of Wound: improving bilateral - Physical Exam Vital Signs Temp Pulse Resp BP 96.8 F L 82 20 H 120/92 H 01/10/20 08:06 01/10/20 08:06 01/10/20 08:06 01/10/20 08:06 General: Alert, Oriented x3, Cooperative Extremities: No cyanosis, Capillary Refill Less than 3 Seconds, No Calf Tenderness, Diminished Peripheral Pulses, Edema Skin: Ulcer/ Wound - no purulence, no odor, no infection, no streaking Wound Measurements and Assessment WC - Nurse 1 - General Ulcer Measurement Start: 01/03/20 08:29 Freq: Status: Active Protocol: Activity Type Activity Date Activity User E-Sign Co-Sign Detail Recorded Client Recorded Date Recorded By Document 01/10/20 08:06 TERE [id number] 01/10/20 08:20 TERE 01/10/20 08:06 Wound Center Nurse 1 [Ulcer Assessment] #14 R medial ankle -Current Size (cm) - Length 1.5 -Current Size (cm) - Width 0.5 -Current Size (cm) - Depth 0.1 -Total Square Cm 0.75 -Photo Taken No -Exudate Amt None Present -Wound Margin Thickened -Granulation Amt Small (1-33%) -Granulation Quality [place] -Necrosis Amt Large (67-100%) -Necrotic Tissue Type Adherent Slough -Structure Exposed N/A -Texture (Lisa-wound Skin Appearance) Scarring -Moisture (Lisa-wound Skin Appearance No Abnormality, ) Dry/Scaly -Color (Lisa-wound Skin Appearance) Hemosiderin Staining -Temperature (Lisa-wound Skin No Abnormality Appearance) (Pt Warm) -Ulcer Cleansing Wound Cleanser -Foul Odor after Cleansing No -Anesthetic Used 4% Lidocaine Solution #11 RIGHT MEDIAL FOOT -Current Size (cm) - Length 0.6 -Current Size (cm) - Width 0.8 -Current Size (cm) - Depth 0.1 -Total Square Cm 0.48 -Photo Taken No -Exudate Amt None Present -Wound Margin Thickened -Granulation Amt Small (1-33%) -Granulation Quality [place] -Necrosis Amt Small (1-33%) -Necrotic Tissue Type Adherent Slough -Structure Exposed Fat Layer Exposed -Texture (Lisa-wound Skin Appearance) Scarring -Moisture (Lisa-wound Skin Appearance Dry/Scaly ) -Color (Lisa-wound Skin Appearance) Hemosiderin Staining -Temperature (Lisa-wound Skin No Abnormality Appearance) (Pt Warm) -Tenderness on Palpation (Lisa-wound No Skin Appearance) -Ulcer Cleansing Wound Cleanser -Foul Odor after Cleansing No -Anesthetic Used 4% Lidocaine Solution #6 POSTERIOR LLE -Current Size (cm) - Length 4.4 -Current Size (cm) - Width 1 -Current Size (cm) - Depth 0.2 -Total Square Cm 4.4 -Photo Taken No -Exudate Amt Small -Exudate Type Serosanguineous -Wound Margin Thickened -Granulation Amt Medium (34-66%) -Granulation Quality [place],Red -Necrosis Amt Medium (34-66%) -Necrotic Tissue Type Adherent Slough -Structure Exposed N/A -Texture (Lisa-wound Skin Appearance) Scarring -Moisture (Lisa-wound Skin Appearance Dry/Scaly ) -Color (Lisa-wound Skin Appearance) Hemosiderin Staining -Temperature (Lisa-wound Skin No Abnormality Appearance) (Pt Warm) -Tenderness on Palpation (Lisa-wound No Skin Appearance) -Ulcer Cleansing Wound Cleanser -Foul Odor after Cleansing No -Anesthetic Used 4% Lidocaine Solution #4 POSTERIOR RLE -Current Size (cm) - Length 11.7 -Current Size (cm) - Width 2 -Current Size (cm) - Depth 0.3 -Total Square Cm 23.4 -Photo Taken No -Exudate Amt Small -Exudate Type Serosanguineous -Wound Margin Thickened -Granulation Amt Medium (34-66%) -Granulation Quality [place],Red -Necrosis Amt Medium (34-66%) -Necrotic Tissue Type Adherent Slough -Texture (Lisa-wound Skin Appearance) Scarring -Moisture (Lisa-wound Skin Appearance Dry/Scaly ) -Color (Lisa-wound Skin Appearance) Hemosiderin Staining -Temperature (Lisa-wound Skin No Abnormality Appearance) (Pt Warm) -Tenderness on Palpation (Lisa-wound No Skin Appearance) -Ulcer Cleansing Wound Cleanser -Foul Odor after Cleansing No -Anesthetic Used 4% Lidocaine Solution [Edema Assessment] -Right Calf (cm) 37.2 -Right Ankle (cm) 21 WC - Nurse 2 - General Ulcer CM Notes Start: 01/03/20 08:29 Freq: Status: Active Protocol: Activity Type Activity Date Activity User E-Sign Co-Sign Detail Recorded Client Recorded Date Recorded By Document 01/10/20 08:33 JAMAL [id number] 01/10/20 08:37 JAMAL 01/10/20 08:33 Wound Center Nurse 2 [Procedure/Treatment] #14 R medial ankle -Correct Patient No -Correct Side, Site, Position No -Correct Procedure No -Procedure Performed No -Post Debridement Size (cm) - Length 0 -Post Debridement Size (cm) - Width 0 -Post Debridement Size (cm) - Depth 0 -Total Square Cm 0 -Wound/Ulcer Outcome Healed- Epithelialized #11 RIGHT MEDIAL FOOT -Time 08:35 -Correct Patient Yes -Correct Side, Site, Position Yes -Correct Procedure Yes -Procedure Performed Yes -Type of Procedure Debridement -Clinical Debridement Subcutaneous -Post Debridement Size (cm) - Length 0.6 -Post Debridement Size (cm) - Width 0.9 -Post Debridement Size (cm) - Depth 0.1 -Total Square Cm 0.54 -Wound/Ulcer Outcome Not Healed -Ulcer Cleansing Rinsed/ Irrigated with Saline -Foul Odor after Cleansing No -Bioengineered Tissue No -Bleeding Controlled with Pressure -Offloading No -Treatment Response Procedure Tolerated Well #6 POSTERIOR LLE -Time 08:35 -Correct Patient Yes -Correct Side, Site, Position Yes -Correct Procedure Yes -Procedure Performed Yes -Type of Procedure Debridement -Clinical Debridement Subcutaneous -Post Debridement Size (cm) - Length 4.5 -Post Debridement Size (cm) - Width 1 -Post Debridement Size (cm) - Depth 0.2 -Total Square Cm 4.5 -Wound/Ulcer Outcome Not Healed -Ulcer Cleansing Rinsed/ Irrigated with Saline -Foul Odor after Cleansing No -Bioengineered Tissue No -Bleeding Controlled with Pressure -Offloading No -Treatment Response Procedure Tolerated Well #4 POSTERIOR RLE -Time 08:36 -Correct Patient Yes -Correct Side, Site, Position Yes -Correct Procedure Yes -Procedure Performed Yes -Type of Procedure Debridement -Clinical Debridement Subcutaneous -Post Debridement Size (cm) - Length 11.8 -Post Debridement Size (cm) - Width 2 -Post Debridement Size (cm) - Depth 0.3 -Total Square Cm 23.6 -Wound/Ulcer Outcome Not Healed -Ulcer Cleansing Rinsed/ Irrigated with Saline -Foul Odor after Cleansing No -Bioengineered Tissue No -Bleeding Controlled with Pressure -Offloading No -Treatment Response Procedure Tolerated Well [See Physician Procedure note for Specifics] Pain Scale: 0-10 Numeric [Pain] -Is Patient Pain Free? Yes Musculoskeletal: No Tenderness to Palpation of Joints or Extremities, Muscle Wasting Neurological: - - lack of normal epicritic sensation via light touch Psych/Mental Status: Normal Affect, Appropriate Debridement Note Post-Debridement Measurements/Treatment WC - Nurse 2 - General Ulcer CM Notes Start: 01/03/20 08:29 Freq: Status: Active Protocol: Activity Type Activity Date Activity User E-Sign Co-Sign Detail Recorded Client Recorded Date Recorded By Document 01/03/20 09:00 JF [id number] 01/03/20 09:07 Document 01/10/20 08:33 JF [id number] 01/10/20 08:37 01/03/20 01/10/20 09:00 08:33 Wound Center Nurse 2 #14 R medial ankle -Time 09:01 -Correct Patient Yes No -Correct Side, Site, Position Yes No -Correct Procedure Yes No -Procedure Performed Yes No -Type of Procedure Debridement -Clinical Debridement Selective -Post Debridement Size (cm) - Length 0.1 0 -Post Debridement Size (cm) - Width 0.1 0 -Post Debridement Size (cm) - Depth 0.1 0 -Total Square Cm 0.01 0 -Wound/Ulcer Outcome Not Healed Healed- Epithelialized -Ulcer Cleansing Rinsed/ Irrigated with Saline -Foul Odor after Cleansing No -Bioengineered Tissue No -Bleeding Controlled with Pressure -Offloading No -Treatment Response Procedure Tolerated Well #11 RIGHT MEDIAL FOOT -Time 09:01 08:35 -Correct Patient Yes Yes -Correct Side, Site, Position Yes Yes -Correct Procedure Yes Yes -Procedure Performed Yes Yes -Type of Procedure Debridement Debridement -Clinical Debridement Subcutaneous Subcutaneous -Post Debridement Size (cm) - Length 1 0.6 -Post Debridement Size (cm) - Width 0.7 0.9 -Post Debridement Size (cm) - Depth 0 0.1 -Total Square Cm 0.7 0.54 -Wound/Ulcer Outcome Not Healed Not Healed -Ulcer Cleansing Rinsed/ Rinsed/ Irrigated with Irrigated with Saline Saline -Foul Odor after Cleansing No No -Bioengineered Tissue No No -Bleeding Controlled with Pressure Pressure -Offloading No No -Treatment Response Procedure Procedure Tolerated Well Tolerated Well #6 POSTERIOR LLE -Time 09:02 08:35 -Correct Patient Yes Yes -Correct Side, Site, Position Yes Yes -Correct Procedure Yes Yes -Procedure Performed Yes Yes -Type of Procedure Debridement Debridement -Clinical Debridement Subcutaneous Subcutaneous -Post Debridement Size (cm) - Length 5.1 4.5 -Post Debridement Size (cm) - Width 1 1 -Post Debridement Size (cm) - Depth 0.1 0.2 -Total Square Cm 5.1 4.5 -Wound/Ulcer Outcome Not Healed Not Healed -Ulcer Cleansing Rinsed/ Rinsed/ Irrigated with Irrigated with Saline Saline -Foul Odor after Cleansing No No -Bioengineered Tissue No No -Bleeding Controlled with Pressure Pressure -Offloading No No -Treatment Response Procedure Procedure Tolerated Well Tolerated Well #4 POSTERIOR RLE -Time 09:02 08:36 -Correct Patient Yes Yes -Correct Side, Site, Position Yes Yes -Correct Procedure Yes Yes -Procedure Performed Yes Yes -Type of Procedure Debridement Debridement -Clinical Debridement Subcutaneous Subcutaneous -Post Debridement Size (cm) - Length 12.5 11.8 -Post Debridement Size (cm) - Width 2.6 2 -Post Debridement Size (cm) - Depth 0.4 0.3 -Total Square Cm 32.50 23.6 -Wound/Ulcer Outcome Amputation Not Healed -Ulcer Cleansing Rinsed/ Rinsed/ Irrigated with Irrigated with Saline Saline -Foul Odor after Cleansing No No -Bioengineered Tissue No No -Bleeding Controlled with Pressure Pressure -Offloading No No -Treatment Response Procedure Procedure Tolerated Well Tolerated Well Pain Scale: 0-10 Numeric Is Patient Pain Free? Yes Yes Wound debrided: medial foot, posterior leg Laterality: Right Wound Grade/Stage: grade 3 Type of Debridement: Excisional debridement Anesthesia Used: 5% Lidocaine Gel Depth: in the subcutaneous layer Percentage of wound debrided: 100 Instrument Used: #15 blade Tissue Removed: fibrous, devitalized subcutaneous, biofilm, slough Severity: Fat Layer Exposed Amount of bleeding with debridement: Mild Bleeding Controlled with: Pressure Patient tolerated procedure well - Additional Wound Wound debrided: posterior leg Laterality: Left Wound Grade/Stage: grade 2 Type of Debridement: Excisional debridement Anesthesia Used: 5% Lidocaine Gel Depth: in the subcutaneous layer Percentage of wound debrided: 100 Instrument Used: #15 blade Tissue Removed: fibrous, devitalized subcutaneous, biofilm, slough Severity: Fat Layer Exposed Amount of bleeding with debridement: Mild Bleeding Controlled with: Pressure Patient tolerated procedure: Patient tolerated procedure well Assessment/Plan Active Problems (Last Updated 09/28/18 @ 12:41 by Geraldine Steele) Non-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) Ulcer of right foot with fat layer exposed (Chronic) 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 -previous bilateral leg fasciotomies and debridements and irrigation performed previously now with right and left leg ulcers with fat and tendon layers exposed. -diabetic neuropathy. -malnutrition suspected. 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 -delayed healing. -gait impairment and fall risk. -other comorbidities. -Continued smoking habits Plan: I reviewed and discussed his case today. Debridement was performed as noted in the clinical panel. It is noted the proximal medial foot ulcer site has healed. To change daily with Magineel Ag. He has demonstrated significant delays in healing under his prior comprehensive wound healing plan. He was reassured no local or systemic signs of illness is suspected today. To continue increased protein intake with nutritional supplementation. To continue glycemic control. He had a previous arterial Doppler scheduled with Dr. Morgan's staff on August 02, 2018 and overall perfusion was confirmed; additional intervention or workup was not recommended. It is also noted that he did have venous Doppler performed with reflux evaluation. He did not have evidence of deep venous thrombosis or venous insufficiency at that time; the vessels were compressible. I recommend he sustained from smoking and alcohol activities to optimize healing as well. This is discussed at length again today and he defers smoking cessation referral program. He decreased his habits from 20 cigarettes a day to 10 and I encouraged him to strive for 5 or less. Prior workup summary: His workup for vasculitis and underlying autoimmune disorder has been completed. A punch biopsy was sent during his last surgical intervention on June 10 and this demonstrated inflammatory changes without malignancy. He had initial screening labs and so far he has a negative RA titer, HL of the 27, KEVIN, anti-CCP, and rheumatoid factor. Several his antibody screenings were not reportable. Hyperbaric oxygen therapy was recommended and it is noted his ejection fraction was most recently 50%. He refuses at this time. . I answered his questions. To return to the wound healing center in 1 week. To call sooner if he has any questions or concerns. . Quality measures reviewed as the following: Updated today: Medication and allergy reconciliation, pain status and follow-up plan. updated 01-10-2020- he denies falls this past year. Reviewed on 11-29-2019: up-to-date pneumonia vaccination status, he has not up-to-date influenza immunization performed in 09/2019, he does have a living will on file. He is a smoker and smoking cessation was reviewed. He does have elevated blood pressure at or above 120/80 mmHg and also elevated body mass index. For these issues I recommend he follows up with his primary care physician as scheduled. He was counseled on the importance of diet and exercise as well. Quality measures reviewed as the following: Updated today: Medication and allergy reconciliation, pain status and follow-up plan. Reviewed on 11-29-2019: up-to-date pneumonia vaccination status, he has not up-to-date influenza immunization performed in 09/2019, he does have a living will on file. He is a smoker and smoking cessation was reviewed. He does have elevated blood pressure at or above 120/80 mmHg and also elevated body mass index. For these issues I recommend he follows up with his primary care physician as scheduled. He was counseled on the importance of diet and exercise as well.
[2020-01-17 08:03] VITALS: BP 125/96; PULSE 99; RESP 22; TEMP 36.1; BMI 32.3
--- NOTE | 2020-01-17 10:41 | PCM.WC.PN ---
(1) Delayed wound healing Status: Chronic Current Visit: Yes Code(s): T14.8XXD - Other injury of unspecified body region, subsequent encounter (2) Malnutrition Status: Chronic Current Visit: Yes Code(s): E46 - Unspecified protein-calorie malnutrition (3) Type 2 diabetes mellitus with diabetic polyneuropathy Status: Chronic Current Visit: Yes Code(s): E11.42 - Type 2 diabetes mellitus with diabetic polyneuropathy (4) Ulcer of left lower extremity with fat layer exposed Status: Chronic Current Visit: Yes Code(s): L97.922 - Non-pressure chronic ulcer of unspecified part of left lower leg with fat layer exposed (5) Ulcer of right foot with fat layer exposed Status: Chronic Current Visit: Yes Code(s): L97.512 - Non-pressure chronic ulcer of other part of right foot with fat layer exposed (6) Ulcer of right lower extremity with fat layer exposed Status: Chronic Current Visit: Yes Code(s): L97.912 - Non-pressure chronic ulcer of unspecified part of right lower leg with fat layer exposed Type of Wound Date of Service: 01/17/20 Chief Complaint: right and left Leg ulcers and right foot ulcers. History of Wound: Mr. Arguello is a 64-year-old male with multiple comorbidities follows up for delayed healing ulcers to the right foot as well as bilateral legs. These are chronic and he has had previous remote surgical intervention. He had prior operating room debridement with application of advanced wound products. He denies chills, fever, nausea, or vomiting. He presents today with his . He refuses hyperbaric oxygen therapy treatment. He denies odor or redness. He relates complete resolution of pain; 01/01. He denies new injuries. He denies pain, redness, or odor. Progress of Wound: improving bilateral - Physical Exam Vital Signs Temp Pulse Resp BP 97 F L 99 22 H 125/96 H 01/17/20 08:03 01/17/20 08:03 01/17/20 08:03 01/17/20 08:03 General: Alert, Oriented x3, Cooperative, No apparent distress HEENT: Atraumatic Extremities: No cyanosis, Capillary Refill Less than 3 Seconds, No Calf Tenderness, Diminished Peripheral Pulses, Edema - Mild Skin: Ulcer/ Wound - No purulence, erythema, string, odor, infection. The peripheral skin is atrophic, thin, and hairless. Wound Measurements and Assessment WC - Nurse 1 - General Ulcer Measurement Start: 01/03/20 08:29 Freq: Status: Active Protocol: Activity Type Activity Date Activity User E-Sign Co-Sign Detail Recorded Client Recorded Date Recorded By Document 01/17/20 08:03 DL [id number] 01/17/20 08:15 DL 01/17/20 08:03 Wound Center Nurse 1 [Ulcer Assessment] #11 RIGHT MEDIAL FOOT -Current Size (cm) - Length 0.7 -Current Size (cm) - Width 0.5 -Current Size (cm) - Depth 0.1 -Total Square Cm 0.35 -Photo Taken No -Exudate Amt None Present -Wound Margin Thickened -Granulation Amt Small (1-33%) -Granulation Quality [place] -Necrosis Amt Small (1-33%) -Necrotic Tissue Type Adherent Slough -Structure Exposed N/A -Texture (Lisa-wound Skin Appearance) Scarring -Moisture (Lisa-wound Skin Appearance Dry/Scaly ) -Color (Lisa-wound Skin Appearance) Hemosiderin Staining -Temperature (Lisa-wound Skin No Abnormality Appearance) (Pt Warm) -Tenderness on Palpation (Lisa-wound No Skin Appearance) -Ulcer Cleansing Wound Cleanser -Foul Odor after Cleansing No -Anesthetic Used 4% Lidocaine Solution #6 POSTERIOR LLE -Current Size (cm) - Length 5 -Current Size (cm) - Width 0.9 -Current Size (cm) - Depth 0.1 -Total Square Cm 4.5 -Photo Taken No -Exudate Amt None Present -Wound Margin Thickened -Granulation Amt Small (1-33%) -Granulation Quality [place],Red -Necrosis Amt Large (67-100%) -Necrotic Tissue Type Adherent Slough -Structure Exposed N/A -Texture (Lisa-wound Skin Appearance) Scarring -Moisture (Lisa-wound Skin Appearance Dry/Scaly ) -Color (Lisa-wound Skin Appearance) Hemosiderin Staining -Temperature (Lisa-wound Skin No Abnormality Appearance) (Pt Warm) -Tenderness on Palpation (Lisa-wound No Skin Appearance) -Ulcer Cleansing Wound Cleanser -Foul Odor after Cleansing No -Anesthetic Used 4% Lidocaine Solution #4 POSTERIOR RLE -Current Size (cm) - Length 11.5 -Current Size (cm) - Width 1.7 -Current Size (cm) - Depth 0.7 -Total Square Cm 19.55 -Photo Taken No -Exudate Amt Small -Exudate Type Serosanguineous -Wound Margin Thickened -Granulation Amt Medium (34-66%) -Granulation Quality [place],Red -Necrosis Amt Large (67-100%) -Necrotic Tissue Type Adherent Slough -Structure Exposed N/A -Texture (Lisa-wound Skin Appearance) Scarring -Moisture (Lisa-wound Skin Appearance Dry/Scaly ) -Color (Lisa-wound Skin Appearance) Hemosiderin Staining -Temperature (Lisa-wound Skin No Abnormality Appearance) (Pt Warm) -Tenderness on Palpation (Lisa-wound No Skin Appearance) -Ulcer Cleansing Wound Cleanser -Foul Odor after Cleansing No -Anesthetic Used 4% Lidocaine Solution WC - Nurse 2 - General Ulcer CM Notes Start: 01/03/20 08:29 Freq: Status: Active Protocol: Activity Type Activity Date Activity User E-Sign Co-Sign Detail Recorded Client Recorded Date Recorded By Document 01/17/20 08:23 [id number] 01/17/20 08:26 01/17/20 08:23 Wound Center Nurse 2 [Procedure/Treatment] #11 RIGHT MEDIAL FOOT -Time 08:24 -Correct Patient Yes -Correct Side, Site, Position Yes -Correct Procedure Yes -Procedure Performed Yes -Type of Procedure Debridement -Clinical Debridement Subcutaneous -Post Debridement Size (cm) - Length 0.8 -Post Debridement Size (cm) - Width 0.5 -Post Debridement Size (cm) - Depth 0.1 -Total Square Cm 0.40 -Wound/Ulcer Outcome Not Healed -Ulcer Cleansing Rinsed/ Irrigated with Saline -Foul Odor after Cleansing No -Bioengineered Tissue No -Bleeding Controlled with Pressure -Offloading No -Treatment Response Procedure Tolerated Well #6 POSTERIOR LLE -Time 08:25 -Correct Patient Yes -Correct Side, Site, Position Yes -Correct Procedure Yes -Procedure Performed Yes -Type of Procedure Debridement -Clinical Debridement Subcutaneous -Post Debridement Size (cm) - Length 1.5 -Post Debridement Size (cm) - Width 1.1 -Post Debridement Size (cm) - Depth 0.2 -Total Square Cm 1.65 -Wound/Ulcer Outcome Not Healed -Ulcer Cleansing Rinsed/ Irrigated with Saline -Foul Odor after Cleansing No -Bioengineered Tissue No -Bleeding Controlled with Pressure -Offloading No -Treatment Response Procedure Tolerated Well #4 POSTERIOR RLE -Time 08:25 -Correct Patient Yes -Correct Side, Site, Position Yes -Correct Procedure Yes -Procedure Performed Yes -Type of Procedure Debridement -Clinical Debridement Subcutaneous -Post Debridement Size (cm) - Length 11.5 -Post Debridement Size (cm) - Width 1.8 -Post Debridement Size (cm) - Depth 0.7 -Total Square Cm 20.70 -Wound/Ulcer Outcome Not Healed -Ulcer Cleansing Rinsed/ Irrigated with Saline -Foul Odor after Cleansing No -Bioengineered Tissue No -Bleeding Controlled with Pressure -Offloading No -Treatment Response Procedure Tolerated Well [See Physician Procedure note for Specifics] Pain Scale: 0-10 Numeric [Pain] -Is Patient Pain Free? Yes Musculoskeletal: No Tenderness to Palpation of Joints or Extremities, Muscle Wasting Neurological: - - Lack of normal epicritic sensation to light touch is noted Psych/Mental Status: Normal Affect, Appropriate Debridement Note Post-Debridement Measurements/Treatment WC - Nurse 2 - General Ulcer CM Notes Start: 01/03/20 08:29 Freq: Status: Active Protocol: Activity Type Activity Date Activity User E-Sign Co-Sign Detail Recorded Client Recorded Date Recorded By Document 01/03/20 09:00 [id number] 01/03/20 09:07 Document 01/10/20 08:33 JF [id number] 01/10/20 08:37 Document 01/17/20 08:23 JF [id number] 01/17/20 08:26 01/03/20 01/10/20 01/17/20 09:00 08:33 08:23 Wound Center Nurse 2 #14 R medial ankle -Time 09:01 -Correct Patient Yes No -Correct Side, Site, Position Yes No -Correct Procedure Yes No -Procedure Performed Yes No -Type of Procedure Debridement -Clinical Debridement Selective -Post Debridement Size (cm) - Length 0.1 0 -Post Debridement Size (cm) - Width 0.1 0 -Post Debridement Size (cm) - Depth 0.1 0 -Total Square Cm 0.01 0 -Wound/Ulcer Outcome Not Healed Healed- Epithelialized -Ulcer Cleansing Rinsed/ Irrigated with Saline -Foul Odor after Cleansing No -Bioengineered Tissue No -Bleeding Controlled with Pressure -Offloading No -Treatment Response Procedure Tolerated Well #11 RIGHT MEDIAL FOOT -Time 09:01 08:35 08:24 -Correct Patient Yes Yes Yes -Correct Side, Site, Position Yes Yes Yes -Correct Procedure Yes Yes Yes -Procedure Performed Yes Yes Yes -Type of Procedure Debridement Debridement Debridement -Clinical Debridement Subcutaneous Subcutaneous Subcutaneous -Post Debridement Size (cm) - Length 1 0.6 0.8 -Post Debridement Size (cm) - Width 0.7 0.9 0.5 -Post Debridement Size (cm) - Depth 0 0.1 0.1 -Total Square Cm 0.7 0.54 0.40 -Wound/Ulcer Outcome Not Healed Not Healed Not Healed -Ulcer Cleansing Rinsed/ Rinsed/ Rinsed/ Irrigated with Irrigated with Irrigated with Saline Saline Saline -Foul Odor after Cleansing No No No -Bioengineered Tissue No No No -Bleeding Controlled with Pressure Pressure Pressure -Offloading No No No -Treatment Response Procedure Procedure Procedure Tolerated Well Tolerated Well Tolerated Well #6 POSTERIOR LLE -Time 09:02 08:35 08:25 -Correct Patient Yes Yes Yes -Correct Side, Site, Position Yes Yes Yes -Correct Procedure Yes Yes Yes -Procedure Performed Yes Yes Yes -Type of Procedure Debridement Debridement Debridement -Clinical Debridement Subcutaneous Subcutaneous Subcutaneous -Post Debridement Size (cm) - Length 5.1 4.5 1.5 -Post Debridement Size (cm) - Width 1 1 1.1 -Post Debridement Size (cm) - Depth 0.1 0.2 0.2 -Total Square Cm 5.1 4.5 1.65 -Wound/Ulcer Outcome Not Healed Not Healed Not Healed -Ulcer Cleansing Rinsed/ Rinsed/ Rinsed/ Irrigated with Irrigated with Irrigated with Saline Saline Saline -Foul Odor after Cleansing No No No -Bioengineered Tissue No No No -Bleeding Controlled with Pressure Pressure Pressure -Offloading No No No -Treatment Response Procedure Procedure Procedure Tolerated Well Tolerated Well Tolerated Well #4 POSTERIOR RLE -Time 09:02 08:36 08:25 -Correct Patient Yes Yes Yes -Correct Side, Site, Position Yes Yes Yes -Correct Procedure Yes Yes Yes -Procedure Performed Yes Yes Yes -Type of Procedure Debridement Debridement Debridement -Clinical Debridement Subcutaneous Subcutaneous Subcutaneous -Post Debridement Size (cm) - Length 12.5 11.8 11.5 -Post Debridement Size (cm) - Width 2.6 2 1.8 -Post Debridement Size (cm) - Depth 0.4 0.3 0.7 -Total Square Cm 32.50 23.6 20.70 -Wound/Ulcer Outcome Amputation Not Healed Not Healed -Ulcer Cleansing Rinsed/ Rinsed/ Rinsed/ Irrigated with Irrigated with Irrigated with Saline Saline Saline -Foul Odor after Cleansing No No No -Bioengineered Tissue No No No -Bleeding Controlled with Pressure Pressure Pressure -Offloading No No No -Treatment Response Procedure Procedure Procedure Tolerated Well Tolerated Well Tolerated Well Pain Scale: 0-10 Numeric Is Patient Pain Free? Yes Yes Yes Wound debrided: posterior leg Laterality: Left Wound Grade/Stage: grade 2 Type of Debridement: Excisional debridement Anesthesia Used: 5% Lidocaine Gel Depth: in the subcutaneous layer Percentage of wound debrided: 100 Instrument Used: #15 blade Tissue Removed: fibrous, devitalized subcutaneous, biofilm, slough Severity: Fat Layer Exposed Amount of bleeding with debridement: Mild Bleeding Controlled with: Pressure Patient tolerated procedure well - Additional Wound Wound debrided: medial foot and postrerior leg Laterality: Right Wound Grade/Stage: grade 3 Type of Debridement: Excisional debridement Anesthesia Used: 5% Lidocaine Gel Depth: in the subcutaneous layer Percentage of wound debrided: 100 Instrument Used: #15 blade Tissue Removed: fibrous, devitalized subcutaneous, biofilm, slough Severity: Fat Layer Exposed Amount of bleeding with debridement: Mild Bleeding Controlled with: Pressure Patient tolerated procedure: Patient tolerated procedure well Assessment/Plan Active Problems (Last Updated 09/28/18 @ 12:41 by Geraldine Steele) Non-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) Ulcer of right foot with fat layer exposed (Chronic) 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 -previous bilateral leg fasciotomies and debridements and irrigation performed previously now with right and left leg ulcers with fat and tendon layers exposed. -diabetic neuropathy. -malnutrition suspected. 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 -delayed healing. -gait impairment and fall risk. -other comorbidities. -Continued smoking habits Plan: I reviewed and discussed his case today. Debridement was performed as noted in the clinical panel. It is noted the proximal medial foot ulcer site has healed. To change daily with Aquacel Ag. He has demonstrated significant delays in healing under his prior comprehensive wound healing plan. He was reassured no local or systemic signs of illness is suspected today. To continue increased protein intake with nutritional supplementation. To continue glycemic control. He had a previous arterial Doppler scheduled with Dr. Morgan's staff on August 02, 2018 and overall perfusion was confirmed; additional intervention or workup was not recommended. It is also noted that he did have venous Doppler performed with reflux evaluation. He did not have evidence of deep venous thrombosis or venous insufficiency at that time; the vessels were compressible. I recommend he sustained from smoking and alcohol activities to optimize healing as well. This is discussed at length again today and he defers smoking cessation referral program. He decreased his habits from 20 cigarettes a day to 10 and I encouraged him to strive for 5 or less. Prior workup summary: His workup for vasculitis and underlying autoimmune disorder has been completed. A punch biopsy was sent during his last surgical intervention on June 10 and this demonstrated inflammatory changes without malignancy. He had initial screening labs and so far he has a negative RA titer, HL of the 27, KEVIN, anti-CCP, and rheumatoid factor. Several his antibody screenings were not reportable. Hyperbaric oxygen therapy was recommended and it is noted his ejection fraction was most recently 50%. He refuses at this time. . I answered his questions. To return to the wound healing center in 1 week. To call sooner if he has any questions or concerns. . Quality measures reviewed as the following: Updated today: Medication and allergy reconciliation, pain status and follow-up plan. updated 01-10-2020- he denies falls this past year. Reviewed on 11-29-2019: up-to-date pneumonia vaccination status, he has not up-to-date influenza immunization performed in 09/2019, he does have a living will on file. He is a smoker and smoking cessation was reviewed. He does have elevated blood pressure at or above 120/80 mmHg and also elevated body mass index. For these issues I recommend he follows up with his primary care physician as scheduled. He was counseled on the importance of diet and exercise as well. Quality measures reviewed as the following: Updated today: Medication and allergy reconciliation, pain status and follow-up plan. Reviewed on 11-29-2019: up-to-date pneumonia vaccination status, he has not up-to-date influenza immunization performed in 09/2019, he does have a living will on file. He is a smoker and smoking cessation was reviewed. He does have elevated blood pressure at or above 120/80 mmHg and also elevated body mass index. For these issues I recommend he follows up with his primary care physician as scheduled. He was counseled on the importance of diet and exercise as well.
== END 2020-01-20 23:59 ==
LOC: WC 08:00
PROVIDERS: Family Provider Family Medicine; PCP Family Medicine; Visit Provider Podiatrist
DX: E11.621 Type 2 diabetes mellitus with foot ulcer (principal); E11.622 Type 2 diabetes mellitus with other skin ulcer; E11.42 Type 2 diabetes mellitus with diabetic polyneuropathy; L97.822 Non-pressure chronic ulcer of other part of left lower leg with fat layer exposed; L97.412 Non-pressure chronic ulcer of right heel and midfoot with fat layer exposed; L97.812 Non-pressure chronic ulcer of other part of right lower leg with fat layer exposed; F17.210 Nicotine dependence, cigarettes, uncomplicated
CPT/HCPCS: 11042; 11045; 97597

== ENCOUNTER 2020-02-14 08:00 | Outpatient (RCR) | payer MEDICARE, SELFPAY ==
[2020-01-21 00:25] VITALS: BP 125/96; PULSE 99; RESP 22; TEMP 36.1
[2020-01-24 08:05] VITALS: BP 128/80; PULSE 107; RESP 20; TEMP 36.6; BMI 32.3
--- NOTE | 2020-01-24 08:59 | PN.PCM_ITS ---
(1) Ulcer of right foot with fat layer exposed Status: Chronic Code(s): L97.512 - Non-pressure chronic ulcer of other part of right foot with fat layer exposed (2) Ulcer of right lower extremity with fat layer exposed Status: Chronic Code(s): L97.912 - Non-pressure chronic ulcer of unspecified part of right lower leg with fat layer exposed (3) Ulcer of left lower extremity with fat layer exposed Status: Chronic Code(s): L97.922 - Non-pressure chronic ulcer of unspecified part of left lower leg with fat layer exposed (4) Type 2 diabetes mellitus with diabetic polyneuropathy Status: Chronic Code(s): E11.42 - Type 2 diabetes mellitus with diabetic polyneuropathy (5) Localized edema Status: Chronic Code(s): R60.0 - Localized edema (6) Malnutrition Status: Chronic Code(s): E46 - Unspecified protein-calorie malnutrition Type of Wound Date of Service: 01/24/20 Chief Complaint: right and left Leg ulcers and right foot ulcers. History of Wound: Mr. Arguello is a 64-year-old male with multiple comorbidities follows up for delayed healing ulcers to the right foot as well as bilateral legs. These are chronic and he has had previous remote surgical intervention. He had prior operating room debridement with application of advanced wound products. He denies chills, fever, nausea, or vomiting. He presents today with his . He refuses hyperbaric oxygen therapy treatment. He denies odor or redness. He denies pain, redness, or odor. Progress of Wound: improving bilateral - Physical Exam Vital Signs Temp Pulse Resp BP 97.9 F 107 H 20 H 128/80 H 01/24/20 08:05 01/24/20 08:05 01/24/20 08:05 01/24/20 08:05 General: Alert, Oriented x3, Cooperative, No apparent distress Extremities: No cyanosis, Capillary Refill Less than 3 Seconds, No Calf Tenderness, Diminished Peripheral Pulses, Edema Skin: Ulcer/ Wound - No purulence, erythema, skin, odor, or infection. Skin is atrophic hairless bilateral Wound Measurements and Assessment WC - Nurse 1 - General Ulcer Measurement Start: 01/24/20 08:05 Freq: Status: Active Protocol: Activity Type Activity Date Activity User E-Sign Co-Sign Detail Recorded Client Recorded Date Recorded By Document 01/24/20 08:05 TERE [id number] 01/24/20 08:18 DL 01/24/20 08:05 Wound Center Nurse 1 [Ulcer Assessment] #11 RIGHT MEDIAL FOOT -Current Size (cm) - Length 0.9 -Current Size (cm) - Width 0.7 -Current Size (cm) - Depth 0.1 -Total Square Cm 0.63 -Photo Taken No -Exudate Amt None Present -Exudate Type Serosanguineous -Wound Margin Thickened -Granulation Amt Large (67-100%) -Granulation Quality [place] -Necrosis Amt Small (1-33%) -Necrotic Tissue Type Adherent Slough -Structure Exposed N/A -Texture (Lisa-wound Skin Appearance) Scarring -Moisture (Lisa-wound Skin Appearance Dry/Scaly ) -Color (Lisa-wound Skin Appearance) Hemosiderin Staining -Temperature (Lisa-wound Skin No Abnormality Appearance) (Pt Warm) -Tenderness on Palpation (Lisa-wound No Skin Appearance) -Ulcer Cleansing Wound Cleanser -Foul Odor after Cleansing No -Anesthetic Used 4% Lidocaine Solution #6 POSTERIOR LLE -Current Size (cm) - Length 2 -Current Size (cm) - Width 0.7 -Current Size (cm) - Depth 0.2 -Total Square Cm 1.4 -Photo Taken No -Exudate Amt None Present -Wound Margin Thickened -Granulation Amt Medium (34-66%) -Granulation Quality Red -Necrosis Amt Medium (34-66%) -Necrotic Tissue Type Adherent Slough -Structure Exposed N/A -Texture (Lisa-wound Skin Appearance) Scarring -Moisture (Lisa-wound Skin Appearance Dry/Scaly ) -Color (Lisa-wound Skin Appearance) Hemosiderin Staining -Temperature (Lisa-wound Skin No Abnormality Appearance) (Pt Warm) -Tenderness on Palpation (Lisa-wound No Skin Appearance) -Ulcer Cleansing Wound Cleanser -Foul Odor after Cleansing No -Anesthetic Used 4% Lidocaine Solution #4 POSTERIOR RLE -Current Size (cm) - Length 10.7 -Current Size (cm) - Width 1.8 -Current Size (cm) - Depth 0.4 -Total Square Cm 19.26 -Photo Taken No -Exudate Amt Small -Exudate Type Serosanguineous -Wound Margin Thickened -Granulation Amt Medium (34-66%) -Granulation Quality Red -Necrosis Amt Medium (34-66%) -Necrotic Tissue Type Adherent Slough -Structure Exposed N/A -Texture (Lisa-wound Skin Appearance) Scarring -Moisture (Lisa-wound Skin Appearance Dry/Scaly ) -Color (Lisa-wound Skin Appearance) Hemosiderin Staining -Temperature (Lisa-wound Skin No Abnormality Appearance) (Pt Warm) -Tenderness on Palpation (Lisa-wound No Skin Appearance) -Ulcer Cleansing Wound Cleanser -Foul Odor after Cleansing No -Anesthetic Used 4% Lidocaine Solution [Edema Assessment] -Right Calf (cm) 37.4 -Right Ankle (cm) 21.4 -Left Calf (cm) 37 -Left Ankle (cm) 20.5 WC - Nurse 2 - General Ulcer CM Notes Start: 01/24/20 08:05 Freq: Status: Active Protocol: Activity Type Activity Date Activity User E-Sign Co-Sign Detail Recorded Client Recorded Date Recorded By Document 01/24/20 08:26 JAMAL [id number] 01/24/20 08:28 JAMAL 01/24/20 08:26 Wound Center Nurse 2 [Procedure/Treatment] #11 RIGHT MEDIAL FOOT -Time 08:26 -Correct Patient Yes -Correct Side, Site, Position Yes -Correct Procedure Yes -Procedure Performed Yes -Type of Procedure Debridement -Clinical Debridement Subcutaneous -Post Debridement Size (cm) - Length 1 -Post Debridement Size (cm) - Width 0.8 -Post Debridement Size (cm) - Depth 0.1 -Total Square Cm 0.8 -Wound/Ulcer Outcome Not Healed -Ulcer Cleansing Rinsed/ Irrigated with Saline -Foul Odor after Cleansing No -Bioengineered Tissue No -Bleeding Controlled with Pressure -Offloading No -Treatment Response Procedure Tolerated Well #6 POSTERIOR LLE -Time 08:27 -Correct Patient Yes -Correct Side, Site, Position Yes -Correct Procedure Yes -Procedure Performed Yes -Type of Procedure Debridement -Clinical Debridement Subcutaneous -Post Debridement Size (cm) - Length 2 -Post Debridement Size (cm) - Width 0.8 -Post Debridement Size (cm) - Depth 0.2 -Total Square Cm 1.6 -Wound/Ulcer Outcome Not Healed -Ulcer Cleansing Rinsed/ Irrigated with Saline -Foul Odor after Cleansing No -Bioengineered Tissue No -Bleeding Controlled with Pressure -Offloading No -Treatment Response Procedure Tolerated Well #4 POSTERIOR RLE -Time 08:27 -Correct Patient Yes -Correct Side, Site, Position Yes -Correct Procedure Yes -Procedure Performed Yes -Type of Procedure Debridement -Clinical Debridement Subcutaneous -Post Debridement Size (cm) - Length 10.8 -Post Debridement Size (cm) - Width 1.8 -Post Debridement Size (cm) - Depth 0.4 -Total Square Cm 19.44 -Wound/Ulcer Outcome Not Healed -Ulcer Cleansing Rinsed/ Irrigated with Saline -Foul Odor after Cleansing No -Bioengineered Tissue No -Bleeding Controlled with Pressure -Offloading No -Treatment Response Procedure Tolerated Well [See Physician Procedure note for Specifics] Pain Scale: 0-10 Numeric [Pain] -Is Patient Pain Free? Yes Musculoskeletal: No Tenderness to Palpation of Joints or Extremities, Muscle Wasting Neurological: - - Lack of epicritic sensation light touch consistent with neuropathy status bilateral lower extremities Psych/Mental Status: Normal Affect, Appropriate Debridement Note Post-Debridement Measurements/Treatment WC - Nurse 2 - General Ulcer CM Notes Start: 01/24/20 08:05 Freq: Status: Active Protocol: Activity Type Activity Date Activity User E-Sign Co-Sign Detail Recorded Client Recorded Date Recorded By Document 01/24/20 08:26 JAMAL [id number] 01/24/20 08:28 JAMAL 01/24/20 08:26 Wound Center Nurse 2 #11 RIGHT MEDIAL FOOT -Time 08:26 -Correct Patient Yes -Correct Side, Site, Position Yes -Correct Procedure Yes -Procedure Performed Yes -Type of Procedure Debridement -Clinical Debridement Subcutaneous -Post Debridement Size (cm) - Length 1 -Post Debridement Size (cm) - Width 0.8 -Post Debridement Size (cm) - Depth 0.1 -Total Square Cm 0.8 -Wound/Ulcer Outcome Not Healed -Ulcer Cleansing Rinsed/ Irrigated with Saline -Foul Odor after Cleansing No -Bioengineered Tissue No -Bleeding Controlled with Pressure -Offloading No -Treatment Response Procedure Tolerated Well #6 POSTERIOR LLE -Time 08:27 -Correct Patient Yes -Correct Side, Site, Position Yes -Correct Procedure Yes -Procedure Performed Yes -Type of Procedure Debridement -Clinical Debridement Subcutaneous -Post Debridement Size (cm) - Length 2 -Post Debridement Size (cm) - Width 0.8 -Post Debridement Size (cm) - Depth 0.2 -Total Square Cm 1.6 -Wound/Ulcer Outcome Not Healed -Ulcer Cleansing Rinsed/ Irrigated with Saline -Foul Odor after Cleansing No -Bioengineered Tissue No -Bleeding Controlled with Pressure -Offloading No -Treatment Response Procedure Tolerated Well #4 POSTERIOR RLE -Time 08:27 -Correct Patient Yes -Correct Side, Site, Position Yes -Correct Procedure Yes -Procedure Performed Yes -Type of Procedure Debridement -Clinical Debridement Subcutaneous -Post Debridement Size (cm) - Length 10.8 -Post Debridement Size (cm) - Width 1.8 -Post Debridement Size (cm) - Depth 0.4 -Total Square Cm 19.44 -Wound/Ulcer Outcome Not Healed -Ulcer Cleansing Rinsed/ Irrigated with Saline -Foul Odor after Cleansing No -Bioengineered Tissue No -Bleeding Controlled with Pressure -Offloading No -Treatment Response Procedure Tolerated Well Pain Scale: 0-10 Numeric Is Patient Pain Free? Yes Wound debrided: medial foot, posterior leg Laterality: Right Wound Grade/Stage: grade 3 Type of Debridement: Excisional debridement Anesthesia Used: 5% Lidocaine Gel Depth: in the subcutaneous layer Percentage of wound debrided: 100 Instrument Used: #15 blade Tissue Removed: fibrous, devitalized subcuteaneous, biofilm, slough Severity: Fat Layer Exposed Amount of bleeding with debridement: Mild Bleeding Controlled with: Pressure Patient tolerated procedure well - Additional Wound Wound debrided: posterior leg Laterality: Left Wound Grade/Stage: grade 2 Type of Debridement: Excisional debridement Anesthesia Used: 5% Lidocaine Gel Depth: in the subcutaneous layer Percentage of wound debrided: 100 Instrument Used: #15 blade Tissue Removed: fibrous, devitalized subcuteaneous, biofilm, slough Severity: Fat Layer Exposed Amount of bleeding with debridement: Mild Bleeding Controlled with: Pressure Patient tolerated procedure: Patient tolerated procedure well Assessment/Plan Assessment: -Now status post operating room excisional subcutaneous and tendon debridements to bilateral legs and right foot with additional application of advanced wound healing products to bilateral posterior lower legs--no infection and stable today -improvement noted. 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 - previous bilateral leg fasciotomies and debridements and irrigation performed previously now with right and left leg ulcers with fat and tendon layers exposed. -diabetic neuropathy. -malnutrition suspected. 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 -delayed healing. -gait impairment and fall risk. -other comorbidities. -Continued smoking habits Plan: I reviewed and discussed his case today. Debridement was performed as noted in the clinical panel. To change daily with Aquacel Ag. He has demonstrated significant delays in healing under his prior comprehensive wound healing plan. He was reassured no local or systemic signs of illness is suspected today. To continue increased protein intake with nutritional supplementation. To continue glycemic control. He had a previous arterial Doppler scheduled with Dr. Morgan's staff on August 02, 2018 and overall perfusion was confirmed; additional intervention or workup was not recommended. It is also noted that he did have venous Doppler performed with reflux evaluation. He did not have evidence of deep venous thrombosis or venous insufficiency at that time; the vessels were compressible. I recommend he sustained from smoking and alcohol activities to optimize healing as well. This is discussed at length again today and he defers smoking cessation referral program. He decreased his habits from 20 cigarettes a day to 10 and I encouraged him to strive for 5 or less. Prior workup summary: His workup for vasculitis and underlying autoimmune disorder has been completed. A punch biopsy was sent during his last surgical intervention on June 10 and this demonstrated inflammatory changes without malignancy. He had initial screening labs and so far he has a negative RA titer, HL of the 27, KEVIN, anti-CCP, and rheumatoid factor. Several his antibody screenings were not reportable. Hyperbaric oxygen therapy was recommended and it is noted his ejection fraction was most recently 50%. He refuses at this time. . I answered his questions. T o return to the wound healing center in 1 week. To call sooner if he has any questions or concerns. . Quality measures reviewed as the following: Updated today: Medication and allergy reconciliation, pain status and follow-up plan. updated 01-10-2020- he denies falls this past year. Reviewed on 11-29-2019: up-to-date pneumonia vaccination status, he has not up-to-date influenza immunization performed in 09/2019, he does have a living will on file. He is a smoker and smoking cessation was reviewed. He does have elevated blood pressure at or above 120/80 mmHg and also elevated body mass index. For these issues I recommend he follows up with his primary care physician as scheduled. He was counseled on the importance of diet and exercise as well. Quality measures reviewed as the following: Updated today: Medication and allergy reconciliation, pain status and follow-up plan. Reviewed on 11-29-2019: up-to-date pneumonia vaccination status, he has not up-to-date influenza immunization performed in 09/2019, he does have a living will on file. He is a smoker and smoking cessation was reviewed. He does have elevated blood pressure at or above 120/80 mmHg and also elevated body mass index. For these issues I recommend he follows up with his primary care physician as scheduled. He was counseled on the importance of diet and exercise as well.
[2020-01-31 09:23] VITALS: BP 120/78; PULSE 57; RESP 16; TEMP 35.6; BMI 32.3
--- NOTE | 2020-01-31 11:31 | PCM.WC.PN ---
(1) Ulcer of right foot with fat layer exposed Status: Chronic Code(s): L97.512 - Non-pressure chronic ulcer of other part of right foot with fat layer exposed (2) Ulcer of right lower extremity with fat layer exposed Status: Chronic Code(s): L97.912 - Non-pressure chronic ulcer of unspecified part of right lower leg with fat layer exposed (3) Ulcer of left lower extremity with fat layer exposed Status: Chronic Code(s): L97.922 - Non-pressure chronic ulcer of unspecified part of left lower leg with fat layer exposed (4) Type 2 diabetes mellitus with diabetic polyneuropathy Status: Chronic Code(s): E11.42 - Type 2 diabetes mellitus with diabetic polyneuropathy (5) Localized edema Status: Chronic Code(s): R60.0 - Localized edema (6) Malnutrition Status: Chronic Code(s): E46 - Unspecified protein-calorie malnutrition Type of Wound Date of Service: 01/31/20 Chief Complaint: right and left Leg ulcers and right foot ulcers. History of Wound: Mr. Arguello is a 64-year-old male with multiple comorbidities follows up for delayed healing ulcers to the right foot as well as bilateral legs. These are chronic and he has had previous remote surgical intervention. He had prior operating room debridement with application of advanced wound products. He denies chills, fever, nausea, or vomiting. He presents today with his . He refuses hyperbaric oxygen therapy treatment. He denies odor or redness. He denies pain, redness, or odor. Progress of Wound: improving bilateral - Physical Exam Vital Signs Temp Pulse Resp BP 96.1 F L 57 L 16 120/78 01/31/20 09:23 01/31/20 09:23 01/31/20 09:23 01/31/20 09:23 General: Alert, Oriented x3, Cooperative, No apparent distress Extremities: No cyanosis, Capillary Refill Less than 3 Seconds, No Calf Tenderness, Diminished Peripheral Pulses, Edema - Mild bilateral lower extremity Skin: Ulcer/ Wound - No purulence, erythema, streaking, odor, infection bilateral. No exposed muscle. No maceration or necrosis bilateral. His skin is hairless and atrophic bilateral lower extremities Wound Measurements and Assessment WC - Nurse 1 - General Ulcer Measurement Start: 01/24/20 08:05 Freq: Status: Active Protocol: Activity Type Activity Date Activity User E-Sign Co-Sign Detail Recorded Client Recorded Date Recorded By Document 01/31/20 09:23 BM [id number] 01/31/20 09:37 [facility] 01/31/20 09:23 Wound Center Nurse 1 [Ulcer Assessment] #11 RIGHT MEDIAL FOOT -Combined with other wound No -Current Size (cm) - Length 1 -Current Size (cm) - Width 0.6 -Current Size (cm) - Depth 0.1 -Total Square Cm 0.6 -Date of Last Picture (Recall this 01/31/20 field) -Photo Taken Yes -Epithelialization None Present -Tunneling No -Undermining/Tunneling No -Circular Undermining No -Exudate Amt Small -Exudate Type Serous -Wound Margin Flat & Intact -Granulation Amt Small (1-33%) -Granulation Quality Red -Slough/Fibrin Yes -Necrosis Amt Medium (34-66%) -Necrotic Tissue Type Adherent Slough -Texture (Lisa-wound Skin Appearance) Assessed, Scarring -Moisture (Lisa-wound Skin Appearance Assessed,Dry/ ) Scaly -Color (Lisa-wound Skin Appearance) Assessed -Temperature (Lisa-wound Skin No Abnormality Appearance) (Pt Warm) -Tenderness on Palpation (Lisa-wound No Skin Appearance) -Ulcer Cleansing soapy water -Foul Odor after Cleansing No -Anesthetic Used 5% Lidocaine Gel #6 POSTERIOR LLE -Combined with other wound No -Current Size (cm) - Length 2.3 -Current Size (cm) - Width 0.9 -Current Size (cm) - Depth 0.2 -Total Square Cm 2.07 -Date of Last Picture (Recall this 01/31/20 field) -Photo Taken Yes -Epithelialization Small 1-33% -Tunneling No -Undermining/Tunneling No -Circular Undermining No -Exudate Amt Small -Exudate Type Serous -Wound Margin Distinct, Outline Attached -Granulation Amt Medium (34-66%) -Granulation Quality Red -Slough/Fibrin Yes -Necrosis Amt Small (1-33%) -Necrotic Tissue Type Adherent Slough -Texture (Lisa-wound Skin Appearance) Assessed, Scarring -Moisture (Lisa-wound Skin Appearance Assessed,Dry/ ) Scaly -Color (Lisa-wound Skin Appearance) Assessed -Temperature (Lisa-wound Skin No Abnormality Appearance) (Pt Warm) -Tenderness on Palpation (Lisa-wound No Skin Appearance) -Ulcer Cleansing soapy water -Foul Odor after Cleansing No -Anesthetic Used 5% Lidocaine Gel #4 POSTERIOR RLE -Combined with other wound No -Current Size (cm) - Length 6.2 -Current Size (cm) - Width 2 -Current Size (cm) - Depth 0.5 -Total Square Cm 12.4 -Date of Last Picture (Recall this 01/31/20 field) -Photo Taken Yes -Epithelialization None Present -Tunneling No -Undermining/Tunneling No -Circular Undermining No -Exudate Amt Small -Exudate Type Serous -Wound Margin Distinct, Outline Attached -Granulation Amt Medium (34-66%) -Granulation Quality Red -Slough/Fibrin Yes -Necrosis Amt Small (1-33%) -Necrotic Tissue Type Adherent Slough -Texture (Lisa-wound Skin Appearance) Assessed, Scarring -Moisture (Lisa-wound Skin Appearance Assessed,Dry/ ) Scaly -Color (Lisa-wound Skin Appearance) Assessed -Temperature (Lisa-wound Skin No Abnormality Appearance) (Pt Warm) -Tenderness on Palpation (Lisa-wound No Skin Appearance) -Ulcer Cleansing soapy water -Foul Odor after Cleansing No -Anesthetic Used 5% Lidocaine Gel [Edema Assessment] -Lower Limb Edema Present Yes -Right Calf (cm) 38.6 -Right Ankle (cm) 23.3 -Left Calf (cm) 37.7 -Left Ankle (cm) 20.9 WC - Nurse 2 - General Ulcer CM Notes Start: 01/24/20 08:05 Freq: Status: Active Protocol: Activity Type Activity Date Activity User E-Sign Co-Sign Detail Recorded Client Recorded Date Recorded By Document 01/31/20 09:42 JAMAL [id number] 01/31/20 09:44 JAMAL 01/31/20 09:42 Wound Center Nurse 2 [Procedure/Treatment] #11 RIGHT MEDIAL FOOT -Time 09:43 -Correct Patient Yes -Correct Side, Site, Position Yes -Correct Procedure Yes -Procedure Performed Yes -Type of Procedure Debridement -Clinical Debridement Subcutaneous -Post Debridement Size (cm) - Length 1.0 -Post Debridement Size (cm) - Width 0.7 -Post Debridement Size (cm) - Depth 0.1 -Total Square Cm 0.70 -Wound/Ulcer Outcome Not Healed -Ulcer Cleansing Rinsed/ Irrigated with Saline -Foul Odor after Cleansing No -Bioengineered Tissue No -Bleeding Controlled with Pressure -Offloading No -Treatment Response Procedure Tolerated Well #6 POSTERIOR LLE -Time 09:43 -Correct Patient Yes -Correct Side, Site, Position Yes -Correct Procedure Yes -Procedure Performed Yes -Type of Procedure Debridement -Clinical Debridement Subcutaneous -Post Debridement Size (cm) - Length 2.4 -Post Debridement Size (cm) - Width 1.0 -Post Debridement Size (cm) - Depth 0.2 -Total Square Cm 2.40 -Wound/Ulcer Outcome Not Healed -Ulcer Cleansing Rinsed/ Irrigated with Saline -Foul Odor after Cleansing No -Bioengineered Tissue No -Bleeding Controlled with Pressure -Offloading Yes -Type of Offloading Surgical Shoe -Treatment Response Procedure Tolerated Well #4 POSTERIOR RLE -Time 09:44 -Correct Patient Yes -Correct Side, Site, Position Yes -Correct Procedure Yes -Procedure Performed Yes -Type of Procedure Debridement -Clinical Debridement Subcutaneous -Post Debridement Size (cm) - Length 6.3 -Post Debridement Size (cm) - Width 2 -Post Debridement Size (cm) - Depth 0.5 -Total Square Cm 12.6 -Wound/Ulcer Outcome Not Healed -Ulcer Cleansing Rinsed/ Irrigated with Saline -Foul Odor after Cleansing No -Bioengineered Tissue No -Bleeding Controlled with Pressure -Offloading Yes -Treatment Response Procedure Tolerated Well [See Physician Procedure note for Specifics] Pain Scale: 0-10 Numeric [Pain] -Is Patient Pain Free? Yes Musculoskeletal: No Tenderness to Palpation of Joints or Extremities, Muscle Wasting Neurological: - - Lack of normal epicritic sensation light touch is consistent with neuropathy status Psych/Mental Status: Normal Affect, Appropriate Debridement Note Post-Debridement Measurements/Treatment WC - Nurse 2 - General Ulcer CM Notes Start: 01/24/20 08:05 Freq: Status: Active Protocol: Activity Type Activity Date Activity User E-Sign Co-Sign Detail Recorded Client Recorded Date Recorded By Document 01/24/20 08:26 JAMAL [id number] 01/24/20 08:28 Document 01/31/20 09:42 JAMAL [id number] 01/31/20 09:44 JF 01/24/20 01/31/20 08:26 09:42 Wound Center Nurse 2 #11 RIGHT MEDIAL FOOT -Time 08:26 09:43 -Correct Patient Yes Yes -Correct Side, Site, Position Yes Yes -Correct Procedure Yes Yes -Procedure Performed Yes Yes -Type of Procedure Debridement Debridement -Clinical Debridement Subcutaneous Subcutaneous -Post Debridement Size (cm) - Length 1 1.0 -Post Debridement Size (cm) - Width 0.8 0.7 -Post Debridement Size (cm) - Depth 0.1 0.1 -Total Square Cm 0.8 0.70 -Wound/Ulcer Outcome Not Healed Not Healed -Ulcer Cleansing Rinsed/ Rinsed/ Irrigated with Irrigated with Saline Saline -Foul Odor after Cleansing No No -Bioengineered Tissue No No -Bleeding Controlled with Pressure Pressure -Offloading No No -Treatment Response Procedure Procedure Tolerated Well Tolerated Well #6 POSTERIOR LLE -Time 08: 09:43 -Correct Patient Yes Yes -Correct Side, Site, Position Yes Yes -Correct Procedure Yes Yes -Procedure Performed Yes Yes -Type of Procedure Debridement Debridement -Clinical Debridement Subcutaneous Subcutaneous -Post Debridement Size (cm) - Length 2 2.4 -Post Debridement Size (cm) - Width 0.8 1.0 -Post Debridement Size (cm) - Depth 0.2 0.2 -Total Square Cm 1.6 2.40 -Wound/Ulcer Outcome Not Healed Not Healed -Ulcer Cleansing Rinsed/ Rinsed/ Irrigated with Irrigated with Saline Saline -Foul Odor after Cleansing No No -Bioengineered Tissue No No -Bleeding Controlled with Pressure Pressure -Offloading No Yes -Type of Offloading Surgical Shoe -Treatment Response Procedure Procedure Tolerated Well Tolerated Well #4 POSTERIOR RLE -Time 08: 09:44 -Correct Patient Yes Yes -Correct Side, Site, Position Yes Yes -Correct Procedure Yes Yes -Procedure Performed Yes Yes -Type of Procedure Debridement Debridement -Clinical Debridement Subcutaneous Subcutaneous -Post Debridement Size (cm) - Length 10.8 6.3 -Post Debridement Size (cm) - Width 1.8 2 -Post Debridement Size (cm) - Depth 0.4 0.5 -Total Square Cm 19.44 12.6 -Wound/Ulcer Outcome Not Healed Not Healed -Ulcer Cleansing Rinsed/ Rinsed/ Irrigated with Irrigated with Saline Saline -Foul Odor after Cleansing No No -Bioengineered Tissue No No -Bleeding Controlled with Pressure Pressure -Offloading No Yes -Treatment Response Procedure Procedure Tolerated Well Tolerated Well Pain Scale: 0-10 Numeric Is Patient Pain Free? Yes Yes Wound debrided: medial foot, posterior leg Laterality: Right Wound Grade/Stage: grade 3 Type of Debridement: Excisional debridement Anesthesia Used: 5% Lidocaine Gel Depth: in the subcutaneous layer Percentage of wound debrided: 100 Instrument Used: #15 blade Tissue Removed: fibrous, devitalized subcutaneous, biofilm, slough Severity: Fat Layer Exposed Amount of bleeding with debridement: Mild Bleeding Controlled with: Pressure Patient tolerated procedure well - Additional Wound Wound debrided: posterior leg Laterality: Left Wound Grade/Stage: grade 2 Type of Debridement: Excisional debridement Anesthesia Used: 5% Lidocaine Gel Depth: in the subcutaneous layer Percentage of wound debrided: 100 Instrument Used: #15 blade Tissue Removed: fibrous, devitalized subcutaneous, biofilm, slough Severity: Fat Layer Exposed Amount of bleeding with debridement: Mild Bleeding Controlled with: Pressure Patient tolerated procedure: Patient tolerated procedure well Assessment/Plan Assessment: -Now status post operating room excisional subcutaneous and tendon debridements to bilateral legs and right foot with additional application of advanced wound healing products to bilateral posterior lower legs--no infection and stable today -improvement noted. 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 -previous bilateral leg fasciotomies and debridements and irrigation performed previously now with right and left leg ulcers with fat and tendon layers exposed. -diabetic neuropathy. -malnutrition suspected. 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 -delayed healing. -gait impairment and fall risk. -other comorbidities. -Continued smoking habits Plan: I reviewed and discussed his case today. Debridement was performed as noted in the clinical panel. To change daily with [facility] [employer] [facility]. He has demonstrated significant delays in healing under his prior comprehensive wound healing plan. He was reassured no local or systemic signs of illness is suspected today. To continue increased protein intake with nutritional supplementation. To continue glycemic control. He had a previous arterial Doppler scheduled with Dr. Morgan's staff on August 02, 2018 and overall perfusion was confirmed; additional intervention or workup was not recommended. It is also noted that he did have venous Doppler performed with reflux evaluation. He did not have evidence of deep venous thrombosis or venous insufficiency at that time; the vessels were compressible. I recommend he sustained from smoking and alcohol activities to optimize healing as well. This is discussed at length again today and he defers smoking cessation referral program. He decreased his habits from 20 cigarettes a day to 10 and I encouraged him to strive for 5 or less. Prior workup summary: His workup for vasculitis and underlying autoimmune disorder has been completed. A punch biopsy was sent during his last surgical intervention on June 10 and this demonstrated inflammatory changes without malignancy. He had initial screening labs and so far he has a negative RA titer, HL of the 27, KEVIN, anti-CCP, and rheumatoid factor. Several his antibody screenings were not reportable. Hyperbaric oxygen therapy was recommended and it is noted his ejection fraction was most recently 50%. He refuses at this time. . I answered his questions. To return to the wound healing center in 1 week. To call sooner if he has any questions or concerns. . Quality measures reviewed as the following: Updated today: Medication and allergy reconciliation, pain status and follow-up plan. updated 01-10-2020- he denies falls this past year. Reviewed on 11-29-2019: up-to-date pneumonia vaccination status, he has not up-to-date influenza immunization performed in 09/2019, he does have a living will on file. He is a smoker and smoking cessation was reviewed. He does have elevated blood pressure at or above 120/80 mmHg and also elevated body mass index. For these issues I recommend he follows up with his primary care physician as scheduled. He was counseled on the importance of diet and exercise as well. Quality measures reviewed as the following: Updated today: Medication and allergy reconciliation, pain status and follow-up plan. Reviewed on 11-29-2019: up-to-date pneumonia vaccination status, he has not up-to-date influenza immunization performed in 09/2019, he does have a living will on file. He is a smoker and smoking cessation was reviewed. He does have elevated blood pressure at or above 120/80 mmHg and also elevated body mass index. For these issues I recommend he follows up with his primary care physician as scheduled. He was counseled on the importance of diet and exercise as well.
[2020-02-14 08:07] VITALS: BP 134/96; PULSE 99; RESP 20; TEMP 36.3; BMI 32.3
--- NOTE | 2020-02-14 10:07 | PN.PCM_ITS ---
(1) Ulcer of right foot with fat layer exposed Status: Chronic Current Visit: Yes Code(s): L97.512 - Non-pressure chronic ulcer of other part of right foot with fat layer exposed (2) Ulcer of right lower extremity with fat layer exposed Status: Chronic Current Visit: Yes Code(s): L97.912 - Non-pressure chronic ulcer of unspecified part of right lower leg with fat layer exposed (3) Ulcer of left lower extremity with fat layer exposed Status: Chronic Current Visit: Yes Code(s): L97.922 - Non-pressure chronic ulcer of unspecified part of left lower leg with fat layer exposed (4) Type 2 diabetes mellitus with diabetic polyneuropathy Status: Chronic Current Visit: Yes Code(s): E11.42 - Type 2 diabetes mellitus with diabetic polyneuropathy (5) Localized edema Status: Chronic Current Visit: Yes Code(s): R60.0 - Localized edema (6) Malnutrition Status: Chronic Current Visit: Yes Code(s): E46 - Unspecified protein- calorie malnutrition Type of Wound Date of Service: 02/14/20 Chief Complaint: right and left Leg ulcers and right foot ulcers. History of Wound: Mr. Arguello is a 65-year-old male with multiple comorbidities follows up for delayed healing ulcers to the right foot as well as bilateral legs. These are chronic and he has had previous remote surgical intervention. He had prior operating room debridement with application of advanced wound products. He denies chills, fever, nausea, or vomiting. He presents today with his . He refuses hyperbaric oxygen therapy treatment. He denies odor or redness. He denies pain. Progress of Wound: improving bilateral - Physical Exam Vital Signs Temp Pulse Resp BP 97.4 F L 99 20 H 134/96 H 02/14/20 08:07 02/14/20 08:07 02/14/20 08:07 02/14/20 08:07 General: Alert, Oriented x3, Cooperative, No apparent distress Extremities: No cyanosis, Capillary Refill Less than 3 Seconds, No Calf Tenderness, Diminished Peripheral Pulses, Edema Skin: Ulcer/ Wound - No purulence, erythema, streaking, odor, infection. Peripheral skin is hairless and atrophic. There is significant epithelialization centrally to the prior posterior right leg ulcer site Wound Measurements and Assessment WC - Nurse 1 - General Ulcer Measurement Start: 01/24/20 08:05 Freq: Status: Active Protocol: Activity Type Activity Date Activity User E-Sign Co-Sign Detail Recorded Client Recorded Date Recorded By Document 02/14/20 08:07 TERE [id number] 02/14/20 08:21 TERE 02/14/20 08:07 Wound Center Nurse 1 [Ulcer Assessment] #11 RIGHT MEDIAL FOOT -Current Size (cm) - Length 0.8 -Current Size (cm) - Width 0.5 -Current Size (cm) - Depth 0.1 -Total Square Cm 0.40 -Photo Taken No -Exudate Amt Small -Exudate Type Serosanguineous -Wound Margin Thickened -Granulation Amt Large (67-100%) -Granulation Quality Red -Necrosis Amt Small (1-33%) -Necrotic Tissue Type Adherent Slough -Structure Exposed N/A -Texture (Lisa-wound Skin Appearance) Scarring -Moisture (Lisa-wound Skin Appearance Dry/Scaly ) -Color (Lisa-wound Skin Appearance) No Abnormality -Temperature (Lisa-wound Skin No Abnormality Appearance) (Pt Warm) -Tenderness on Palpation (Lisa-wound No Skin Appearance) -Ulcer Cleansing Wound Cleanser -Foul Odor after Cleansing No -Anesthetic Used 4% Lidocaine Solution #6 POSTERIOR LLE -Current Size (cm) - Length 1.6 -Current Size (cm) - Width 0.8 -Current Size (cm) - Depth 0.1 -Total Square Cm 1.28 -Photo Taken No -Exudate Amt Small -Exudate Type Serosanguineous -Wound Margin Thickened -Granulation Amt Large (67-100%) -Granulation Quality [place],Red -Necrosis Amt Small (1-33%) -Necrotic Tissue Type Adherent Slough -Structure Exposed N/A -Texture (Lisa-wound Skin Appearance) Scarring -Moisture (Lisa-wound Skin Appearance Dry/Scaly ) -Color (Lisa-wound Skin Appearance) Hemosiderin Staining -Temperature (Lisa-wound Skin No Abnormality Appearance) (Pt Warm) -Tenderness on Palpation (Lisa-wound No Skin Appearance) -Ulcer Cleansing Wound Cleanser -Foul Odor after Cleansing No -Anesthetic Used 4% Lidocaine Solution #4 POSTERIOR RLE -Current Size (cm) - Length 5.6 -Current Size (cm) - Width 1.7 -Current Size (cm) - Depth 0.1 -Total Square Cm 9.52 -Photo Taken No -Exudate Amt Small -Exudate Type Serosanguineous -Wound Margin Thickened -Granulation Amt Medium (34-66%) -Granulation Quality Red -Necrosis Amt Medium (34-66%) -Necrotic Tissue Type Adherent Slough -Structure Exposed N/A -Texture (Lisa-wound Skin Appearance) Scarring -Moisture (Lisa-wound Skin Appearance Dry/Scaly ) -Color (Lisa-wound Skin Appearance) Hemosiderin Staining -Temperature (Lisa-wound Skin No Abnormality Appearance) (Pt Warm) -Tenderness on Palpation (Lisa-wound No Skin Appearance) -Ulcer Cleansing Wound Cleanser -Foul Odor after Cleansing No -Anesthetic Used 4% Lidocaine Solution [Edema Assessment] -Right Calf (cm) 38 -Right Ankle (cm) 21 -Left Calf (cm) 37 -Left Ankle (cm) 20 WC - Nurse 2 - General Ulcer CM Notes Start: 01/24/20 08:05 Freq: Status: Active Protocol: Activity Type Activity Date Activity User E-Sign Co-Sign Detail Recorded Client Recorded Date Recorded By Document 02/14/20 08:43 JAMAL [id number] 02/14/20 08:46 JAMAL 02/14/20 08:43 Wound Center Nurse 2 [Procedure/Treatment] #11 RIGHT MEDIAL FOOT -Time 08:43 -Correct Patient Yes -Correct Side, Site, Position Yes -Correct Procedure Yes -Procedure Performed Yes -Type of Procedure Debridement -Clinical Debridement Subcutaneous -Post Debridement Size (cm) - Length 0.8 -Post Debridement Size (cm) - Width 0.6 -Post Debridement Size (cm) - Depth 0.1 -Total Square Cm 0.48 -Wound/Ulcer Outcome Not Healed -Ulcer Cleansing Rinsed/ Irrigated with Saline -Foul Odor after Cleansing No -Bioengineered Tissue No -Bleeding Controlled with Pressure -Offloading No -Treatment Response Procedure Tolerated Well #6 POSTERIOR LLE -Time 08:43 -Correct Patient Yes -Correct Side, Site, Position Yes -Correct Procedure Yes -Procedure Performed Yes -Type of Procedure Debridement -Clinical Debridement Subcutaneous -Post Debridement Size (cm) - Length 1.6 -Post Debridement Size (cm) - Width 0.9 -Post Debridement Size (cm) - Depth 0.1 -Total Square Cm 1.44 -Wound/Ulcer Outcome Not Healed -Ulcer Cleansing Rinsed/ Irrigated with Saline -Foul Odor after Cleansing No -Bioengineered Tissue No -Bleeding Controlled with Pressure -Offloading No -Treatment Response Procedure Tolerated Well #4 POSTERIOR RLE -Time 08:44 -Correct Patient Yes -Correct Side, Site, Position Yes -Correct Procedure Yes -Procedure Performed Yes -Type of Procedure Debridement -Clinical Debridement Subcutaneous -Post Debridement Size (cm) - Length 5.6 -Post Debridement Size (cm) - Width 1.8 -Post Debridement Size (cm) - Depth 0.1 -Total Square Cm 10.08 -Wound/Ulcer Outcome Not Healed -Ulcer Cleansing Rinsed/ Irrigated with Saline -Foul Odor after Cleansing No -Bioengineered Tissue No -Bleeding Controlled with Pressure -Offloading No -Treatment Response Procedure Tolerated Well [See Physician Procedure note for Specifics] Pain Scale: 0-10 Numeric [Pain] -Is Patient Pain Free? Yes Musculoskeletal: No Tenderness to Palpation of Joints or Extremities, Muscle Wasting, - - Forefoot amputation noted, right Neurological: - - Neck normal epicritic sensation to light touch Psych/Mental Status: Normal Affect, Appropriate Debridement Note Post-Debridement Measurements/Treatment WC - Nurse 2 - General Ulcer CM Notes Start: 01/24/20 08:05 Freq: Status: Active Protocol: Activity Type Activity Date Activity User E-Sign Co-Sign Detail Recorded Client Recorded Date Recorded By Document 01/24/20 08:26 [id number] 01/24/20 08:28 Document 01/31/20 09:42 [id number] 01/31/20 09:44 Document 02/14/20 08:43 [id number] 02/14/20 08:46 01/24/20 01/31/20 02/14/20 08:26 09:42 08:43 Wound Center Nurse 2 #11 RIGHT MEDIAL FOOT -Time 08:26 09:43 08:43 -Correct Patient Yes Yes Yes -Correct Side, Site, Position Yes Yes Yes -Correct Procedure Yes Yes Yes -Procedure Performed Yes Yes Yes -Type of Procedure Debridement Debridement Debridement -Clinical Debridement Subcutaneous Subcutaneous Subcutaneous -Post Debridement Size (cm) - Length 1 1.0 0.8 -Post Debridement Size (cm) - Width 0.8 0.7 0.6 -Post Debridement Size (cm) - Depth 0.1 0.1 0.1 -Total Square Cm 0.8 0.70 0.48 -Wound/Ulcer Outcome Not Healed Not Healed Not Healed -Ulcer Cleansing Rinsed/ Rinsed/ Rinsed/ Irrigated with Irrigated with Irrigated with Saline Saline Saline -Foul Odor after Cleansing No No No -Bioengineered Tissue No No No -Bleeding Controlled with Pressure Pressure Pressure -Offloading No No No -Treatment Response Procedure Procedure Procedure Tolerated Well Tolerated Well Tolerated Well #6 POSTERIOR LLE -Time 08:27 09:43 08:43 -Correct Patient Yes Yes Yes -Correct Side, Site, Position Yes Yes Yes -Correct Procedure Yes Yes Yes -Procedure Performed Yes Yes Yes -Type of Procedure Debridement Debridement Debridement -Clinical Debridement Subcutaneous Subcutaneous Subcutaneous -Post Debridement Size (cm) - Length 2 2.4 1.6 -Post Debridement Size (cm) - Width 0.8 1.0 0.9 -Post Debridement Size (cm) - Depth 0.2 0.2 0.1 -Total Square Cm 1.6 2.40 1.44 -Wound/Ulcer Outcome Not Healed Not Healed Not Healed -Ulcer Cleansing Rinsed/ Rinsed/ Rinsed/ Irrigated with Irrigated with Irrigated with Saline Saline Saline -Foul Odor after Cleansing No No No -Bioengineered Tissue No No No -Bleeding Controlled with Pressure Pressure Pressure -Offloading No Yes No -Type of Offloading Surgical Shoe -Treatment Response Procedure Procedure Procedure Tolerated Well Tolerated Well Tolerated Well #4 POSTERIOR RLE -Time 08: 09:44 08:44 -Correct Patient Yes Yes Yes -Correct Side, Site, Position Yes Yes Yes -Correct Procedure Yes Yes Yes -Procedure Performed Yes Yes Yes -Type of Procedure Debridement Debridement Debridement -Clinical Debridement Subcutaneous Subcutaneous Subcutaneous -Post Debridement Size (cm) - Length 10.8 6.3 5.6 -Post Debridement Size (cm) - Width 1.8 2 1.8 -Post Debridement Size (cm) - Depth 0.4 0.5 0.1 -Total Square Cm 19.44 12.6 10.08 -Wound/Ulcer Outcome Not Healed Not Healed Not Healed -Ulcer Cleansing Rinsed/ Rinsed/ Rinsed/ Irrigated with Irrigated with Irrigated with Saline Saline Saline -Foul Odor after Cleansing No No No -Bioengineered Tissue No No No -Bleeding Controlled with Pressure Pressure Pressure -Offloading No Yes No -Treatment Response Procedure Procedure Procedure Tolerated Well Tolerated Well Tolerated Well Pain Scale: 0-10 Numeric Is Patient Pain Free? Yes Yes Yes Wound debrided: plantar medial foot, postior leg (inferior and superior) Laterality: Right Wound Grade/Stage: grade 3 Type of Debridement: Excisional debridement Anesthesia Used: 5% Lidocaine Gel Depth: in the subcutaneous layer Percentage of wound debrided: 100 Instrument Used: #15 blade Tissue Removed: fibrous, devitalized subcutaneous, biofilm, slough Severity: Fat Layer Exposed Amount of bleeding with debridement: Mild Bleeding Controlled with: Pressure Patient tolerated procedure well - Additional Wound Wound debrided: posterior leg Laterality: Left Wound Grade/Stage: grade 2 Type of Debridement: Excisional debridement Anesthesia Used: 5% Lidocaine Gel Depth: in the subcutaneous layer Percentage of wound debrided: 100 Instrument Used: #15 blade Tissue Removed: fibrous, devitalized subcutaneous, biofilm, slough Severity: Fat Layer Exposed Amount of bleeding with debridement: Mild Bleeding Controlled with: Pressure Patient tolerated procedure: Patient tolerated procedure well Assessment/Plan Active Problems (Last Updated 09/28/18 @ 12:41 by Geraldine Steele) Ulcer of right foot with fat layer exposed (Chronic) Ulcer of right lower extremity with fat layer exposed (Chronic) Ulcer of left lower extremity with fat layer exposed (Chronic) Type 2 diabetes mellitus with diabetic polyneuropathy (Chronic) Localized edema (Chronic) Malnutrition (Chronic) Assessment: -Now status post operating room excisional subcutaneous and tendon debridements to bilateral legs and right foot with additional application of advanced wound healing products to bilateral posterior lower legs--no infection and stable today -improvement noted. 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 - previous bilateral leg fasciotomies and debridements and irrigation performed previously now with right and left leg ulcers with fat and tendon layers exposed. -diabetic neuropathy. -malnutrition suspected. 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 -delayed healing. -gait impairment and fall risk. -other comorbidities. -Continued smoking habits Plan: I reviewed and discussed his case today. Debridement was performed as noted in the clinical panel. To change daily with [employer]. He has demonstrated significant delays in healing under his prior comprehensive wound healing plan. He was reassured no local or systemic signs of illness is suspected today. To continue increased protein intake with nutritional supplementation. To continue glycemic control. He had a previous arterial Doppler scheduled with Dr. Morgan's staff on August 02, 2018 and overall perfusion was confirmed; additional intervention or workup was not recommended. It is also noted that he did have venous Doppler performed with reflux evaluation. He did not have evidence of deep venous thrombosis or venous insufficiency at that time; the vessels were compressible. I recommend he sustained from smoking and alcohol activities to optimize healing as well. This is discussed at length again today and he defers smoking cessation referral program. He decreased his habits from 20 cigarettes a day to 10 and I encouraged him to strive for 5 or less. Prior workup summary: His workup for vasculitis and underlying autoimmune disorder has been completed. A punch biopsy was sent during his last surgical intervention on June 10 and this demonstrated inflammatory changes without malignancy. He had initial screening labs and so far he has a negative RA titer, HL of the 27, KEVIN, anti-CCP, and rheumatoid factor. Several his antibody screenings were not reportable. Hyperbaric oxygen therapy was recommended and it is noted his ejection fraction was most recently 50%. He refuses at this time. . I answered his questions. To return to the wound healing center in 1 week. To call sooner if he has any questions or concerns. . Quality measures reviewed as the following: Updated today: Medication and allergy reconciliation, pain status and follow-up plan. updated 01-10-2020- he denies falls this past year. Reviewed on 11-29-2019: up-to-date pneumonia vaccination status, he has not up-to-date influenza immunization performed in 09/2019, he does have a living will on file. He is a smoker and smoking cessation was reviewed. He does have elevated blood pressure at or above 120/80 mmHg and also elevated body mass index. For these issues I recommend he follows up with his primary care physician as scheduled. He was counseled on the importance of diet and exercise as well. Quality measures reviewed as the following: Updated today: Medication and allergy reconciliation, pain status and follow-up plan. Reviewed on 11-29-2019: up-to-date pneumonia vaccination status, he has not up-to-date influenza immunization performed in 09/2019, he does have a living will on file. He is a smoker and smoking cessation was reviewed. He does have elevated blood pressure at or above 120/80 mmHg and also elevated body mass index. For these issues I recommend he follows up with his primary care physician as scheduled. He was counseled on the importance of diet and exercise as well.
== END 2020-02-20 23:59 ==
LOC: WC 08:00
PROVIDERS: Family Provider Family Medicine; PCP Family Medicine; Visit Provider Podiatrist
DX: E11.621 Type 2 diabetes mellitus with foot ulcer (principal); E11.42 Type 2 diabetes mellitus with diabetic polyneuropathy; E11.622 Type 2 diabetes mellitus with other skin ulcer; R60.0 Localized edema; L97.412 Non-pressure chronic ulcer of right heel and midfoot with fat layer exposed; L97.822 Non-pressure chronic ulcer of other part of left lower leg with fat layer exposed; L97.812 Non-pressure chronic ulcer of other part of right lower leg with fat layer exposed; F17.210 Nicotine dependence, cigarettes, uncomplicated
CPT/HCPCS: 11042; 11045

== ENCOUNTER 2020-03-20 15:30 | Outpatient (RCR) | payer MEDICARE, SELFPAY ==
[2020-02-21 00:23] VITALS: BP 134/96; PULSE 99; RESP 20; TEMP 36.3
[2020-02-28 09:12] VITALS: BP 116/70; PULSE 98; RESP 18; TEMP 36; BMI 32.3
--- NOTE | 2020-02-28 10:27 | PCM.WC.PN ---
(1) Ulcer of left lower extremity with fat layer exposed Status: Chronic Current Visit: Yes Code(s): L97.922 - Non-pressure chronic ulcer of unspecified part of left lower leg with fat layer exposed (2) Ulcer of right foot with fat layer exposed Status: Chronic Current Visit: Yes Code(s): L97.512 - Non-pressure chronic ulcer of other part of right foot with fat layer exposed (3) Ulcer of right lower extremity with fat layer exposed Status: Chronic Current Visit: Yes Code(s): L97.912 - Non-pressure chronic ulcer of unspecified part of right lower leg with fat layer exposed (4) Type 2 diabetes mellitus with diabetic polyneuropathy Status: Chronic Current Visit: Yes Code(s): E11.42 - Type 2 diabetes mellitus with diabetic polyneuropathy (5) Chronic kidney disease Status: Chronic Current Visit: Yes Code(s): N18.9 - Chronic kidney disease, unspecified (6) PVD (peripheral vascular disease) Status: Suspected Current Visit: Yes Code(s): I73.9 - Peripheral vascular disease, unspecified (7) Tobacco dependence due to cigarettes Status: Chronic Current Visit: Yes Code(s): F17.210 - Nicotine dependence, cigarettes, uncomplicated (8) Localized edema Status: Chronic Current Visit: Yes Code(s): R60.0 - Localized edema (9) Malnutrition Status: Chronic Current Visit: Yes Code(s): E46 - Unspecified protein-calorie malnutrition Type of Wound Date of Service: 02/28/20 Chief Complaint: right and left Leg ulcers and right foot ulcers. History of Wound: Mr. Arguello is a 65-year-old male with multiple comorbidities follows up for delayed healing ulcers to the right foot as well as bilateral legs. These are chronic and he has had previous remote surgical intervention. He had prior operating room debridement with application of advanced wound products. He denies chills, fever, nausea, or vomiting. He presents today with his . He refuses hyperbaric oxygen therapy treatment. He denies odor or redness. He denies pain. Progress of Wound: improving bilateral - Physical Exam Vital Signs Temp Pulse Resp BP 96.8 F L 98 18 116/70 02/28/20 09:12 02/28/20 09:12 02/28/20 09:12 02/28/20 09:12 General: Alert, Oriented x3, Cooperative, No apparent distress HEENT: Atraumatic Extremities: No cyanosis, Capillary Refill Less than 3 Seconds, No Calf Tenderness, Diminished Peripheral Pulses, Edema Skin: Ulcer/ Wound - No purulence, erythema, streaking, odor, infection. Progressive granulation tissue is noted to all ulcer sites. There is no longer any exposed deep tissue. The adjacent skin is hairless and atrophic. Wound Measurements and Assessment WC - Nurse 1 - General Ulcer Measurement Start: 02/28/20 09:12 Freq: Status: Active Protocol: Activity Type Activity Date Activity User E-Sign Co-Sign Detail Recorded Client Recorded Date Recorded By Document 02/28/20 09:12 RB [id number] 02/28/20 09:28 RB 02/28/20 09:12 Wound Center Nurse 1 [Ulcer Assessment] #11 RIGHT MEDIAL FOOT -Combined with other wound No -Current Size (cm) - Length 1.1 -Current Size (cm) - Width 0.5 -Current Size (cm) - Depth 0.1 -Total Square Cm 0.55 -Tunneling No -Undermining/Tunneling No -Circular Undermining No -Exudate Amt Small -Exudate Type Serosanguineous -Wound Margin Flat & Intact -Granulation Amt Medium (34-66%) -Granulation Quality [place] -Slough/Fibrin Yes -Necrosis Amt Medium (34-66%) -Necrotic Tissue Type Adherent Slough -Structure Exposed N/A -Texture (Lisa-wound Skin Appearance) Assessed -Moisture (Lisa-wound Skin Appearance Assessed,Dry/ ) Scaly -Color (Lisa-wound Skin Appearance) Assessed -Temperature (Lisa-wound Skin No Abnormality Appearance) (Pt Warm) -Tenderness on Palpation (Lisa-wound No Skin Appearance) -Ulcer Cleansing Wound Cleanser -Foul Odor after Cleansing No -Anesthetic Used 4% Lidocaine Solution #6 POSTERIOR LLE -Combined with other wound No -Current Size (cm) - Length 5 -Current Size (cm) - Width 0.6 -Current Size (cm) - Depth 0.1 -Total Square Cm 3.0 -Tunneling No -Undermining/Tunneling No -Circular Undermining No -Exudate Amt Small -Exudate Type Serosanguineous -Wound Margin Flat & Intact -Granulation Amt Medium (34-66%) -Granulation Quality [place] -Slough/Fibrin Yes -Necrosis Amt Medium (34-66%) -Necrotic Tissue Type Adherent Slough -Structure Exposed N/A -Texture (Lisa-wound Skin Appearance) Assessed -Moisture (Lisa-wound Skin Appearance Assessed,Dry/ ) Scaly -Color (Lisa-wound Skin Appearance) Assessed -Temperature (Lisa-wound Skin No Abnormality Appearance) (Pt Warm) -Tenderness on Palpation (Lisa-wound No Skin Appearance) -Ulcer Cleansing Wound Cleanser -Foul Odor after Cleansing No -Anesthetic Used 4% Lidocaine Solution #4 POSTERIOR RLE -Combined with other wound No -Current Size (cm) - Length 5.8 -Current Size (cm) - Width 0.5 -Current Size (cm) - Depth 0.4 -Total Square Cm 2.90 -Tunneling No -Undermining/Tunneling No -Circular Undermining No -Exudate Amt Small -Exudate Type Serosanguineous -Wound Margin Thickened & Rolled Under -Granulation Amt Medium (34-66%) -Necrosis Amt Medium (34-66%) -Necrotic Tissue Type Adherent Slough -Structure Exposed N/A -Texture (Lisa-wound Skin Appearance) Assessed -Moisture (Lisa-wound Skin Appearance Dry/Scaly ) -Color (Lisa-wound Skin Appearance) Assessed -Temperature (Lisa-wound Skin No Abnormality Appearance) (Pt Warm) -Tenderness on Palpation (Lisa-wound No Skin Appearance) -Ulcer Cleansing Wound Cleanser -Foul Odor after Cleansing No -Anesthetic Used 4% Lidocaine Solution WC - Nurse 2 - General Ulcer CM Notes Start: 02/28/20 09:12 Freq: Status: Active Protocol: Activity Type Activity Date Activity User E-Sign Co-Sign Detail Recorded Client Recorded Date Recorded By Document 02/28/20 09:42 JAMAL [id number] 02/28/20 09:45 JAMAL 02/28/20 09:42 Wound Center Nurse 2 [Procedure/Treatment] #11 RIGHT MEDIAL FOOT -Time 09:43 -Correct Patient Yes -Correct Side, Site, Position Yes -Correct Procedure Yes -Procedure Performed Yes -Type of Procedure Debridement -Clinical Debridement Subcutaneous -Post Debridement Size (cm) - Length 1.2 -Post Debridement Size (cm) - Width 0.5 -Post Debridement Size (cm) - Depth 0.1 -Total Square Cm 0.60 -Wound/Ulcer Outcome Not Healed -Ulcer Cleansing Rinsed/ Irrigated with Saline -Foul Odor after Cleansing No -Bioengineered Tissue No -Bleeding Controlled with Pressure -Offloading No -Treatment Response Procedure Tolerated Well #6 POSTERIOR LLE -Time 09:43 -Correct Patient Yes -Correct Side, Site, Position Yes -Correct Procedure Yes -Procedure Performed Yes -Type of Procedure Debridement -Clinical Debridement Subcutaneous -Post Debridement Size (cm) - Length 5.1 -Post Debridement Size (cm) - Width 0.6 -Post Debridement Size (cm) - Depth 0.1 -Total Square Cm 3.06 -Wound/Ulcer Outcome Not Healed -Ulcer Cleansing Rinsed/ Irrigated with Saline -Foul Odor after Cleansing No -Bioengineered Tissue No -Bleeding Controlled with Pressure -Offloading No -Treatment Response Procedure Tolerated Well #4 POSTERIOR RLE -Time 09:43 -Correct Patient Yes -Correct Side, Site, Position Yes -Correct Procedure Yes -Procedure Performed Yes -Type of Procedure Debridement -Clinical Debridement Subcutaneous -Post Debridement Size (cm) - Length 5.8 -Post Debridement Size (cm) - Width 0.6 -Post Debridement Size (cm) - Depth 0.4 -Total Square Cm 3.48 -Wound/Ulcer Outcome Not Healed -Ulcer Cleansing Rinsed/ Irrigated with Saline -Foul Odor after Cleansing No -Bioengineered Tissue No -Bleeding Controlled with Pressure -Offloading No -Treatment Response Procedure Tolerated Well [See Physician Procedure note for Specifics] Pain Scale: 0-10 Numeric [Pain] -Is Patient Pain Free? Yes Musculoskeletal: No Tenderness to Palpation of Joints or Extremities Neurological: - - Lack of epicritic sensation light touch is consistent with neuropathy status Psych/Mental Status: Normal Affect, Appropriate Debridement Note Post-Debridement Measurements/Treatment WC - Nurse 2 - General Ulcer CM Notes Start: 02/28/20 09:12 Freq: Status: Active Protocol: Activity Type Activity Date Activity User E-Sign Co-Sign Detail Recorded Client Recorded Date Recorded By Document 02/28/20 09:42 JAMAL [id number] 02/28/20 09:45 JAMAL 02/28/20 09:42 Wound Center Nurse 2 #11 RIGHT MEDIAL FOOT -Time 09:43 -Correct Patient Yes -Correct Side, Site, Position Yes -Correct Procedure Yes -Procedure Performed Yes -Type of Procedure Debridement -Clinical Debridement Subcutaneous -Post Debridement Size (cm) - Length 1.2 -Post Debridement Size (cm) - Width 0.5 -Post Debridement Size (cm) - Depth 0.1 -Total Square Cm 0.60 -Wound/Ulcer Outcome Not Healed -Ulcer Cleansing Rinsed/ Irrigated with Saline -Foul Odor after Cleansing No -Bioengineered Tissue No -Bleeding Controlled with Pressure -Offloading No -Treatment Response Procedure Tolerated Well #6 POSTERIOR LLE -Time 09:43 -Correct Patient Yes -Correct Side, Site, Position Yes -Correct Procedure Yes -Procedure Performed Yes -Type of Procedure Debridement -Clinical Debridement Subcutaneous -Post Debridement Size (cm) - Length 5.1 -Post Debridement Size (cm) - Width 0.6 -Post Debridement Size (cm) - Depth 0.1 -Total Square Cm 3.06 -Wound/Ulcer Outcome Not Healed -Ulcer Cleansing Rinsed/ Irrigated with Saline -Foul Odor after Cleansing No -Bioengineered Tissue No -Bleeding Controlled with Pressure -Offloading No -Treatment Response Procedure Tolerated Well #4 POSTERIOR RLE -Time 09:43 -Correct Patient Yes -Correct Side, Site, Position Yes -Correct Procedure Yes -Procedure Performed Yes -Type of Procedure Debridement -Clinical Debridement Subcutaneous -Post Debridement Size (cm) - Length 5.8 -Post Debridement Size (cm) - Width 0.6 -Post Debridement Size (cm) - Depth 0.4 -Total Square Cm 3.48 -Wound/Ulcer Outcome Not Healed -Ulcer Cleansing Rinsed/ Irrigated with Saline -Foul Odor after Cleansing No -Bioengineered Tissue No -Bleeding Controlled with Pressure -Offloading No -Treatment Response Procedure Tolerated Well Pain Scale: 0-10 Numeric Is Patient Pain Free? Yes Wound debrided: medial foot, posterior lower leg Laterality: Right - g Wound Grade/Stage: grade 3 Type of Debridement: Excisional debridement Anesthesia Used: 5% Lidocaine Gel Depth: in the subcutaneous layer Percentage of wound debrided: 100 Instrument Used: #15 blade Tissue Removed: fibrous, devitalized subcutaneous, biofilm, slough Severity: Fat Layer Exposed Amount of bleeding with debridement: Mild Bleeding Controlled with: Pressure Patient tolerated procedure well - Additional Wound Wound debrided: posterior leg Laterality: Left Wound Grade/Stage: grade 2 Type of Debridement: Excisional debridement Anesthesia Used: 5% Lidocaine Gel Depth: in the subcutaneous layer Percentage of wound debrided: 100 Instrument Used: #15 blade Tissue Removed: fibrous, devitalized subcutaneous, biofilm, slough Severity: Fat Layer Exposed Amount of bleeding with debridement: Mild Bleeding Controlled with: Pressure Patient tolerated procedure: Patient tolerated procedure well Assessment/Plan Active Problems (Last Updated 09/28/18 @ 12:41 by Geraldine Steele) Ulcer of right foot with fat layer exposed (Chronic) Ulcer of right lower extremity with fat layer exposed (Chronic) Type 2 diabetes mellitus with diabetic polyneuropathy (Chronic) Chronic kidney disease (Chronic) Tobacco dependence due to cigarettes (Chronic) Ulcer of left lower extremity with fat layer exposed (Chronic) Localized edema (Chronic) Malnutrition (Chronic) Assessment: -Now status post operating room excisional subcutaneous and tendon debridements to bilateral legs and right foot with additional application of advanced wound healing products to bilateral posterior lower legs--no infection and stable today -improvement noted. 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 -previous bilateral leg fasciotomies and debridements and irrigation performed previously now with right and left leg ulcers with fat and tendon layers exposed. -diabetic neuropathy. -malnutrition suspected. 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 -delayed healing. -gait impairment and fall risk. -other comorbidities. -Continued smoking habits Plan: I reviewed and discussed his case today. Debridement was performed as noted in the clinical panel. To change daily with Android App Review Source. He has demonstrated significant delays in healing under his prior comprehensive wound healing plan. He was reassured no local or systemic signs of illness is suspected today. To continue increased protein intake with nutritional supplementation. To continue glycemic control. He had a previous arterial Doppler scheduled with Dr. Morgan's staff on August 02, 2018 and overall perfusion was confirmed; additional intervention or workup was not recommended. It is also noted that he did have venous Doppler performed with reflux evaluation. He did not have evidence of deep venous thrombosis or venous insufficiency at that time; the vessels were compressible. I recommend he sustained from smoking and alcohol activities to optimize healing as well. This is discussed at length again today and he defers smoking cessation referral program. He decreased his habits from 20 cigarettes a day to 10 and I encouraged him to strive for 5 or less. Prior workup summary: His workup for vasculitis and underlying autoimmune disorder has been completed. A punch biopsy was sent during his last surgical intervention on June 10 and this demonstrated inflammatory changes without malignancy. He had initial screening labs and so far he has a negative RA titer, HL of the 27, KEVIN, anti-CCP, and rheumatoid factor. Several his antibody screenings were not reportable. Hyperbaric oxygen therapy was recommended and it is noted his ejection fraction was most recently 50%. He refuses at this time. . I answered his questions. To return to the wound healing center in 2 weeks. Due to coronavirus pandemic, reduced in person visits are offered. To call sooner if he has any questions or concerns. He is scheduled next week for a telehealth visit at 13:15 p.m. The point of contact is his 's smart phone at [phone]. Verbal consent was obtained. . Quality measures reviewed as the following: Updated today: Medication and allergy reconciliation, pain status and follow-up plan. updated 01-10-2020- he denies falls this past year. Reviewed on 11-29-2019: up-to-date pneumonia vaccination status, he has not up-to-date influenza immunization performed in 09/2019, he does have a living will on file. He is a smoker and smoking cessation was reviewed. He does have elevated blood pressure at or above 120/80 mmHg and also elevated body mass index. For these issues I recommend he follows up with his primary care physician as scheduled. He was counseled on the importance of diet and exercise as well. Quality measures reviewed as the following: Updated today: Medication and allergy reconciliation, pain status and follow-up plan. Reviewed on 11-29-2019: up-to-date pneumonia vaccination status, he has not up-to-date influenza immunization performed in 09/2019, he does have a living will on file. He is a smoker and smoking cessation was reviewed. He does have elevated blood pressure at or above 120/80 mmHg and also elevated body mass index. For these issues I recommend he follows up with his primary care physician as scheduled. He was counseled on the importance of diet and exercise as well.
--- NOTE | 2020-03-06 13:33 | PN.PCM_ITS ---
(1) Ulcer of left lower extremity with fat layer exposed Status: Chronic Current Visit: Yes Code(s): L97.922 - Non-pressure chronic ulcer of unspecified part of left lower leg with fat layer exposed (2) Ulcer of right foot with fat layer exposed Status: Chronic Current Visit: Yes Code(s): L97.512 - Non-pressure chronic ulcer of other part of right foot with fat layer exposed (3) Ulcer of right lower extremity with fat layer exposed Status: Chronic Current Visit: Yes Code(s): L97.912 - Non-pressure chronic ulcer of unspecified part of right lower leg with fat layer exposed (4) Type 2 diabetes mellitus with diabetic polyneuropathy Status: Chronic Current Visit: Yes Code(s): E11.42 - Type 2 diabetes mellitus with diabetic polyneuropathy (5) Chronic kidney disease Status: Chronic Current Visit: Yes Code(s): N18.9 - Chronic kidney disease, unspecified (6) PVD (peripheral vascular disease) Status: Suspected Current Visit: Yes Code(s): I73.9 - Peripheral vascular disease, unspecified (7) Tobacco dependence due to cigarettes Status: Chronic Current Visit: Yes Code(s): F17.210 - Nicotine dependence, cigarettes, uncomplicated (8) Localized edema Status: Chronic Current Visit: Yes Code(s): R60.0 - Localized edema (9) Malnutrition Status: Chronic Current Visit: Yes Code(s): E46 - Unspecified protein- calorie malnutrition Type of Wound Date of Service: 03/06/20 Chief Complaint: right and left Leg ulcers and right foot ulcers. History of Wound: Mr. Arguello is a 65-year-old male with multiple comorbidities follows up for delayed healing ulcers to the right foot as well as bilateral legs. These are chronic and he has had previous remote surgical intervention. He had prior operating room debridement with application of advanced wound products. He denies chills, fever, nausea, or vomiting. He relates his temperature this morning was 97.4. He presents today with his . He refuses hyperbaric oxygen therapy treatment. He denies odor or redness. He denies pain. This is a telehealth visit performed at 12:58 PM today to avoid healthcare exposure during the coronavirus pandemic. He verbally consented to completing the telehealth visit from his home with the provider at the wound healing center. He understands this is a medical encounter and will be charted and halle part of his insurance claim as well. The duration of the telehealth vision that included audio and camera use lasted 4 minutes and 11 seconds in which the additional care coordination extended the care to 15 minutes. Progress of Wound: improving bilateral - Physical Exam Vital Signs Temp Pulse Resp BP 96.8 F L 98 18 116/70 02/28/20 09:12 02/28/20 09:12 02/28/20 09:12 02/28/20 09:12 General: Alert, Oriented x3, Cooperative, No apparent distress HEENT: Atraumatic Extremities: No cyanosis, Edema - Mild bilateral lower extremities Skin: Ulcer/ Wound - No purulence is visualized, no erythema, no streaking, no eschar. The ulcer beds appear to be granular and healthy in appearance. His adjacent skin is hairless and atrophic Musculoskeletal: Muscle Wasting, - - Right foot ray resection noted Psych/Mental Status: Normal Affect, Appropriate Debridement Note Post-Debridement Measurements/Treatment WC - Nurse 2 - General Ulcer CM Notes Start: 02/28/20 09:12 Freq: Status: Active Protocol: Activity Type Activity Date Activity User E-Sign Co-Sign Detail Recorded Client Recorded Date Recorded By Document 02/28/20 09:42 [id number] 02/28/20 09:45 JAMAL 02/28/20 09:42 Wound Center Nurse 2 #11 RIGHT MEDIAL FOOT -Time 09:43 -Correct Patient Yes -Correct Side, Site, Position Yes -Correct Procedure Yes -Procedure Performed Yes -Type of Procedure Debridement -Clinical Debridement Subcutaneous -Post Debridement Size (cm) - Length 1.2 -Post Debridement Size (cm) - Width 0.5 -Post Debridement Size (cm) - Depth 0.1 -Total Square Cm 0.60 -Wound/Ulcer Outcome Not Healed -Ulcer Cleansing Rinsed/ Irrigated with Saline -Foul Odor after Cleansing No -Bioengineered Tissue No -Bleeding Controlled with Pressure -Offloading No -Treatment Response Procedure Tolerated Well #6 POSTERIOR LLE -Time 09:43 -Correct Patient Yes -Correct Side, Site, Position Yes -Correct Procedure Yes -Procedure Performed Yes -Type of Procedure Debridement -Clinical Debridement Subcutaneous -Post Debridement Size (cm) - Length 5.1 -Post Debridement Size (cm) - Width 0.6 -Post Debridement Size (cm) - Depth 0.1 -Total Square Cm 3.06 -Wound/Ulcer Outcome Not Healed -Ulcer Cleansing Rinsed/ Irrigated with Saline -Foul Odor after Cleansing No -Bioengineered Tissue No -Bleeding Controlled with Pressure -Offloading No -Treatment Response Procedure Tolerated Well #4 POSTERIOR RLE -Time 09:43 -Correct Patient Yes -Correct Side, Site, Position Yes -Correct Procedure Yes -Procedure Performed Yes -Type of Procedure Debridement -Clinical Debridement Subcutaneous -Post Debridement Size (cm) - Length 5.8 -Post Debridement Size (cm) - Width 0.6 -Post Debridement Size (cm) - Depth 0.4 -Total Square Cm 3.48 -Wound/Ulcer Outcome Not Healed -Ulcer Cleansing Rinsed/ Irrigated with Saline -Foul Odor after Cleansing No -Bioengineered Tissue No -Bleeding Controlled with Pressure -Offloading No -Treatment Response Procedure Tolerated Well Pain Scale: 0-10 Numeric Is Patient Pain Free? Yes No debridement was completed today - This is a telehealth visit Assessment/Plan Active Problems (Last Updated 09/28/18 @ 12:41 by Geraldine Steele) Ulcer of right foot with fat layer exposed (Chronic) Ulcer of right lower extremity with fat layer exposed (Chronic) Type 2 diabetes mellitus with diabetic polyneuropathy (Chronic) Chronic kidney disease (Chronic) Tobacco dependence due to cigarettes (Chronic) Ulcer of left lower extremity with fat layer exposed (Chronic) Localized edema (Chronic) Malnutrition (Chronic) Assessment: -Now status post operating room excisional subcutaneous and tendon debridements to bilateral legs and right foot with additional application of advanced wound healing products to bilateral posterior lower legs--no infection and stable today -improvement noted. 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 - previous bilateral leg fasciotomies and debridements and irrigation performed previously now with right and left leg ulcers with fat and tendon layers exposed. -diabetic neuropathy. -malnutrition suspected. 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 -delayed healing. -gait impairment and fall risk. -other comorbidities. -Continued smoking habits Plan: I reviewed and discussed his case today. Debridement was not performed today because this is a telehealth visit. To change daily with [employer]. He has demonstrated significant delays in healing under his prior comprehensive wound healing plan. He was reassured no local or systemic signs of illness is suspected today. To continue increased protein intake with nutritional supplementation. To continue glycemic control. He had a previous arterial Doppler scheduled with Dr. Morgan's staff on August 02, 2018 and overall perfusion was confirmed; additional intervention or workup was not recommended. It is also noted that he did have venous Doppler performed with reflux evaluation. He did not have evidence of deep venous thrombosis or venous insufficiency at that time; the vessels were compressible. I recommend he sustained from smoking and alcohol activities to optimize healing as well. This is discussed at length again today and he defers smoking cessation referral program. He decreased his habits from 20 cigarettes a day to 10 and I encouraged him to strive for 5 or less. Prior workup summary: His workup for vasculitis and underlying autoimmune disorder has been completed. A punch biopsy was sent during his last surgical intervention on June 10 and this demonstrated inflammatory changes without malignancy. He had initial screening labs and so far he has a negative RA titer, HL of the 27, KEVIN, anti-CCP, and rheumatoid factor. Several his antibody screenings were not reportable. Hyperbaric oxygen therapy was recommended and it is noted his ejection fraction was most recently 50%. He refuses at this time. . I answered his questions. To return to the wound healing center in 1 week. Due to coronavirus pandemic, reduced in person visits are offered. To call sooner if he has any questions or concerns. He will return next week for debridement. . Quality measures reviewed as the following: Updated today: Medication and allergy reconciliation, pain status and follow-up plan. updated 01-10-2020- he denies falls this past year. Reviewed on 11-29-2019: up-to-date pneumonia vaccination status, he has not up-to-date influenza immunization performed in 09/2019, he does have a living will on file. He is a smoker and smoking cessation was reviewed. He does have elevated blood pressure at or above 120/80 mmHg and also elevated body mass index. For these issues I recommend he follows up with his primary care physician as scheduled. He was counseled on the importance of diet and exercise as well. Quality measures reviewed as the following: Updated today: Medication and allergy reconciliation, pain status and follow-up plan. Reviewed on 11-29-2019: up-to-date pneumonia vaccination status, he has not up-to-date influenza immunization performed in 09/2019, he does have a living will on file. He is a smoker and smoking cessation was reviewed. He does have elevated blood pressure at or above 120/80 mmHg and also elevated body mass index. For these issues I recommend he follows up with his primary care physician as scheduled. He was counseled on the importance of diet and exercise as well.
[2020-03-13 08:34] VITALS: BP 124/77; PULSE 87; RESP 18; TEMP 35.7; BMI 32.3
--- NOTE | 2020-03-13 09:00 | PN.PCM_ITS ---
(1) Ulcer of left lower extremity with fat layer exposed Status: Chronic Current Visit: Yes Code(s): L97.922 - Non-pressure chronic ulcer of unspecified part of left lower leg with fat layer exposed (2) Ulcer of right foot with fat layer exposed Status: Chronic Current Visit: Yes Code(s): L97.512 - Non-pressure chronic ulcer of other part of right foot with fat layer exposed (3) Ulcer of right lower extremity with fat layer exposed Status: Chronic Current Visit: Yes Code(s): L97.912 - Non-pressure chronic ulcer of unspecified part of right lower leg with fat layer exposed (4) Type 2 diabetes mellitus with diabetic polyneuropathy Status: Chronic Current Visit: Yes Code(s): E11.42 - Type 2 diabetes mellitus with diabetic polyneuropathy (5) Chronic kidney disease Status: Chronic Current Visit: Yes Code(s): N18.9 - Chronic kidney disease, unspecified (6) PVD (peripheral vascular disease) Status: Suspected Current Visit: Yes Code(s): I73.9 - Peripheral vascular disease, unspecified (7) Tobacco dependence due to cigarettes Status: Chronic Current Visit: Yes Code(s): F17.210 - Nicotine dependence, cigarettes, uncomplicated (8) Localized edema Status: Chronic Current Visit: Yes Code(s): R60.0 - Localized edema (9) Malnutrition Status: Chronic Current Visit: Yes Code(s): E46 - Unspecified protein- calorie malnutrition Type of Wound Date of Service: 03/13/20 Chief Complaint: right and left Leg ulcers and right foot ulcers. History of Wound: Mr. Arguello is a 65-year-old male with multiple comorbidities follows up for delayed healing ulcers to the right foot as well as bilateral legs. These are chronic and he has had previous remote surgical intervention. He had prior operating room debridement with application of advanced wound products. He denies chills, fever, nausea, or vomiting. He relates his temperature this morning was 97.4. He presents today with his . He refuses hyperbaric oxygen therapy treatment. He denies odor or redness. He denies pain. Progress of Wound: improving bilateral - Physical Exam Vital Signs Temp Pulse Resp BP 96.2 F L 87 18 124/77 H 03/13/20 08:34 03/13/20 08:34 03/13/20 08:34 03/13/20 08:34 General: Alert, Oriented x3, Cooperative, No apparent distress Extremities: No cyanosis, Capillary Refill Less than 3 Seconds, No Calf Tender ness, Diminished Peripheral Pulses, Edema Skin: Ulcer/ Wound - No purulence, erythema, streaking, odor, infection. Peripheral skin is hairless and atrophic Wound Measurements and Assessment WC - Nurse 1 - General Ulcer Measurement Start: 02/28/20 09:12 Freq: Status: Active Protocol: Activity Type Activity Date Activity User E-Sign Co-Sign Detail Recorded Client Recorded Date Recorded By Document 03/13/20 08:34 RB [id number] 03/13/20 08:38 RB 03/13/20 08:34 Wound Center Nurse 1 [Ulcer Assessment] #11 RIGHT MEDIAL FOOT -Combined with other wound No -Current Size (cm) - Length 2.2 -Current Size (cm) - Width 1.5 -Current Size (cm) - Depth 0.1 -Total Square Cm 3.30 -Tunneling No -Undermining/Tunneling No -Circular Undermining No -Exudate Amt Medium -Exudate Type Serosanguineous -Wound Margin Flat & Intact -Granulation Amt Medium (34-66%) -Granulation Quality Iron Post -Slough/Fibrin Yes -Necrosis Amt Medium (34-66%) -Necrotic Tissue Type Adherent Slough -Structure Exposed N/A -Texture (Lisa-wound Skin Appearance) Assessed -Moisture (Lisa-wound Skin Appearance Dry/Scaly ) -Color (Lisa-wound Skin Appearance) Assessed -Temperature (Lisa-wound Skin No Abnormality Appearance) (Pt Warm) -Tenderness on Palpation (Lisa-wound No Skin Appearance) -Ulcer Cleansing Wound Cleanser -Foul Odor after Cleansing No -Anesthetic Used 4% Lidocaine Solution #6 POSTERIOR LLE -Combined with other wound No -Current Size (cm) - Length 5 -Current Size (cm) - Width 1 -Current Size (cm) - Depth 0.2 -Total Square Cm 5 -Tunneling No -Undermining/Tunneling No -Circular Undermining No -Exudate Amt Small -Exudate Type Serosanguineous -Wound Margin Thickened & Rolled Under -Granulation Amt Medium (34-66%) -Granulation Quality Iron Post -Slough/Fibrin Yes -Necrosis Amt Medium (34-66%) -Necrotic Tissue Type Adherent Slough -Structure Exposed N/A -Texture (Lisa-wound Skin Appearance) Assessed -Moisture (Lisa-wound Skin Appearance Assessed,Dry/ ) Scaly -Color (Lisa-wound Skin Appearance) Assessed -Temperature (Lisa-wound Skin No Abnormality Appearance) (Pt Warm) -Tenderness on Palpation (Lisa-wound No Skin Appearance) -Ulcer Cleansing Wound Cleanser -Foul Odor after Cleansing No #4 POSTERIOR RLE -Combined with other wound No -Current Size (cm) - Length 4.7 -Current Size (cm) - Width 1 -Current Size (cm) - Depth 0.3 -Total Square Cm 4.7 -Tunneling No -Undermining/Tunneling No -Circular Undermining No -Exudate Amt Medium -Exudate Type Serosanguineous -Wound Margin Thickened & Rolled Under -Granulation Amt Medium (34-66%) -Granulation Quality Iron Post -Slough/Fibrin Yes -Necrosis Amt Medium (34-66%) -Necrotic Tissue Type Adherent Slough -Structure Exposed N/A -Texture (Lisa-wound Skin Appearance) Assessed -Moisture (Lisa-wound Skin Appearance Dry/Scaly ) -Color (Lisa-wound Skin Appearance) Assessed -Temperature (Lisa-wound Skin No Abnormality Appearance) (Pt Warm) -Tenderness on Palpation (Lisa-wound No Skin Appearance) -Ulcer Cleansing Wound Cleanser -Foul Odor after Cleansing No -Anesthetic Used 4% Lidocaine Solution [Edema Assessment] -Lower Limb Edema Present Yes -Right Calf (cm) 38.5 -Right Ankle (cm) 22.2 -Left Calf (cm) 38.5 -Left Ankle (cm) 20.4 WC - Nurse 2 - General Ulcer CM Notes Start: 02/28/20 09:12 Freq: Status: Active Protocol: Activity Type Activity Date Activity User E-Sign Co-Sign Detail Recorded Client Recorded Date Recorded By Document 03/13/20 08:46 JAMAL [id number] 03/13/20 08:48 JAMAL 03/13/20 08:46 Wound Center Nurse 2 [Procedure/Treatment] #11 RIGHT MEDIAL FOOT -Time 08:47 -Correct Patient Yes -Correct Side, Site, Position Yes -Correct Procedure Yes -Procedure Performed Yes -Type of Procedure Debridement -Clinical Debridement Subcutaneous -Post Debridement Size (cm) - Length 2.3 -Post Debridement Size (cm) - Width 1.5 -Post Debridement Size (cm) - Depth 0.1 -Total Square Cm 3.45 -Wound/Ulcer Outcome Not Healed -Ulcer Cleansing Rinsed/ Irrigated with Saline -Foul Odor after Cleansing No -Bioengineered Tissue No -Bleeding Controlled with Pressure -Offloading No -Treatment Response Procedure Tolerated Well #6 POSTERIOR LLE -Time 08:47 -Correct Patient Yes -Correct Side, Site, Position Yes -Correct Procedure Yes -Procedure Performed Yes -Type of Procedure Debridement -Clinical Debridement Subcutaneous -Post Debridement Size (cm) - Length 5.1 -Post Debridement Size (cm) - Width 1.1 -Post Debridement Size (cm) - Depth 0.2 -Total Square Cm 5.61 -Wound/Ulcer Outcome Not Healed -Ulcer Cleansing Rinsed/ Irrigated with Saline -Foul Odor after Cleansing No -Bioengineered Tissue No -Bleeding Controlled with Pressure -Offloading No -Treatment Response Procedure Tolerated Well #4 POSTERIOR RLE -Time 08:47 -Correct Patient Yes -Correct Side, Site, Position Yes -Correct Procedure Yes -Procedure Performed Yes -Type of Procedure Debridement -Clinical Debridement Subcutaneous -Post Debridement Size (cm) - Length 4.8 -Post Debridement Size (cm) - Width 1 -Post Debridement Size (cm) - Depth 0.3 -Total Square Cm 4.8 -Wound/Ulcer Outcome Not Healed -Ulcer Cleansing Rinsed/ Irrigated with Saline -Foul Odor after Cleansing No -Bioengineered Tissue No -Bleeding Controlled with Pressure -Offloading No -Treatment Response Procedure Tolerated Well [See Physician Procedure note for Specifics] Pain Scale: 0-10 Numeric [Pain] -Is Patient Pain Free? Yes Musculoskeletal: No Tenderness to Palpation of Joints or Extremities, Muscle Wasting Neurological: - - Lack of epicritic sensation light touch is consistent with neuropathy Psych/Mental Status: Normal Affect, Appropriate Debridement Note Post-Debridement Measurements/Treatment WC - Nurse 2 - General Ulcer CM Notes Start: 02/28/20 09:12 Freq: Status: Active Protocol: Activity Type Activity Date Activity User E-Sign Co-Sign Detail Recorded Client Recorded Date Recorded By Document 02/28/20 09:42 JAMAL [id number] 02/28/20 09:45 JAMAL Document 03/13/20 08:46 JF [id number] 03/13/20 08:48 02/28/20 03/13/20 09:42 08:46 Wound Center Nurse 2 #11 RIGHT MEDIAL FOOT -Time : 08:47 -Correct Patient Yes Yes -Correct Side, Site, Position Yes Yes -Correct Procedure Yes Yes -Procedure Performed Yes Yes -Type of Procedure Debridement Debridement -Clinical Debridement Subcutaneous Subcutaneous -Post Debridement Size (cm) - Length 1.2 2.3 -Post Debridement Size (cm) - Width 0.5 1.5 -Post Debridement Size (cm) - Depth 0.1 0.1 -Total Square Cm 0.60 3.45 -Wound/Ulcer Outcome Not Healed Not Healed -Ulcer Cleansing Rinsed/ Rinsed/ Irrigated with Irrigated with Saline Saline -Foul Odor after Cleansing No No -Bioengineered Tissue No No -Bleeding Controlled with Pressure Pressure -Offloading No No -Treatment Response Procedure Procedure Tolerated Well Tolerated Well #6 POSTERIOR LLE -Time :43 08:47 -Correct Patient Yes Yes -Correct Side, Site, Position Yes Yes -Correct Procedure Yes Yes -Procedure Performed Yes Yes -Type of Procedure Debridement Debridement -Clinical Debridement Subcutaneous Subcutaneous -Post Debridement Size (cm) - Length 5.1 5.1 -Post Debridement Size (cm) - Width 0.6 1.1 -Post Debridement Size (cm) - Depth 0.1 0.2 -Total Square Cm 3.06 5.61 -Wound/Ulcer Outcome Not Healed Not Healed -Ulcer Cleansing Rinsed/ Rinsed/ Irrigated with Irrigated with Saline Saline -Foul Odor after Cleansing No No -Bioengineered Tissue No No -Bleeding Controlled with Pressure Pressure -Offloading No No -Treatment Response Procedure Procedure Tolerated Well Tolerated Well #4 POSTERIOR RLE -Time : 08:47 -Correct Patient Yes Yes -Correct Side, Site, Position Yes Yes -Correct Procedure Yes Yes -Procedure Performed Yes Yes -Type of Procedure Debridement Debridement -Clinical Debridement Subcutaneous Subcutaneous -Post Debridement Size (cm) - Length 5.8 4.8 -Post Debridement Size (cm) - Width 0.6 1 -Post Debridement Size (cm) - Depth 0.4 0.3 -Total Square Cm 3.48 4.8 -Wound/Ulcer Outcome Not Healed Not Healed -Ulcer Cleansing Rinsed/ Rinsed/ Irrigated with Irrigated with Saline Saline -Foul Odor after Cleansing No No -Bioengineered Tissue No No -Bleeding Controlled with Pressure Pressure -Offloading No No -Treatment Response Procedure Procedure Tolerated Well Tolerated Well Pain Scale: 0-10 Numeric Is Patient Pain Free? Yes Yes Wound debrided: posterior lower leg and medial foot Laterality: Right Wound Grade/Stage: grade 3 Type of Debridement: Excisional debridement Anesthesia Used: 5% Lidocaine Gel Depth: in the subcutaneous layer Percentage of wound debrided: 100 Instrument Used: #15 blade Tissue Removed: fibrous, devitalized subcutaneous, biofilm, slough Severity: Limited To Skin Breakdown Amount of bleeding with debridement: Mild Bleeding Controlled with: Pressure Patient tolerated procedure well - Additional Wound Wound debrided: posterior leg Laterality: Left Wound Grade/Stage: grade 3 Type of Debridement: Excisional debridement Anesthesia Used: 5% Lidocaine Gel Depth: in the subcutaneous layer Percentage of wound debrided: 100 Instrument Used: #15 blade Tissue Removed: fibrous, devitalized subcutaneous, biofilm, slough Severity: Fat Layer Exposed Amount of bleeding with debridement: Mild Bleeding Controlled with: Pressure Patient tolerated procedure: Patient tolerated procedure well Assessment/Plan Active Problems (Last Updated 09/28/18 @ 12:41 by Geraldine Steele) Ulcer of right foot with fat layer exposed (Chronic) Ulcer of right lower extremity with fat layer exposed (Chronic) Type 2 diabetes mellitus with diabetic polyneuropathy (Chronic) Chronic kidney disease (Chronic) Tobacco dependence due to cigarettes (Chronic) Ulcer of left lower extremity with fat layer exposed (Chronic) Localized edema (Chronic) Malnutrition (Chronic) Assessment: -Now status post operating room excisional subcutaneous and tendon debridements to bilateral legs and right foot with additional application of advanced wound healing products to bilateral posterior lower legs--no infection and stable today -improvement noted. 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 - previous bilateral leg fasciotomies and debridements and irrigation performed previously now with right and left leg ulcers with fat and tendon layers exposed. -diabetic neuropathy. -malnutrition suspected. 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 -delayed healing. -gait impairment and fall risk. -other comorbidities. -Continued smoking habits Plan: I reviewed and discussed his case today. Debridement was performed today as noted in the clinical panel. To change daily with [employer]. He has demonstrated significant delays in healing under his prior comprehensive wound healing plan. He was reassured no local or systemic signs of illness is suspected today. To continue increased protein intake with nutritional supplementation. To continue glycemic control. He had a previous arterial Doppler scheduled with Dr. Morgan's staff on August 02, 2018 and overall perfusion was confirmed; additional intervention or workup was not recommended. It is also noted that he did have venous Doppler performed with reflux evaluation. He did not have evidence of deep venous thrombosis or venous insufficiency at that time; the vessels were compressible. I recommend he sustained from smoking and alcohol activities to optimize healing as well. This is discussed at length again today and he defers smoking cessation referral program. He decreased his habits from 20 cigarettes a day to 10 and I encouraged him to strive for 5 or less. He will follow-up at the wound healing center in 2 weeks and elects to do a telehealth visit next week. He elects to be contacted with his cell phone at [phone]. Prior workup summary: His workup for vasculitis and underlying autoimmune disorder has been completed. A punch biopsy was sent during his last surgical intervention on June 10 and this demonstrated inflammatory changes without malignancy. He had initial screening labs and so far he has a negative RA titer, HL of the 27, KEVIN, anti- CCP, and rheumatoid factor. Several his antibody screenings were not reportable. Hyperbaric oxygen therapy was recommended and it is noted his ejection fraction was most recently 50%. He refuses at this time. . I answered his questions. To return to the wound healing center in 1 week. Due to coronavirus pandemic, reduced in person visits are offered. To call sooner if he has any questions or concerns. He will return next week for debridement. . Quality measures reviewed as the following: Updated today: Medication and allergy reconciliation, pain status and follow-up plan. updated 01-10-2020- he denies falls this past year. Reviewed on 11-29-2019: up-to-date pneumonia vaccination status, he has not up-to-date influenza immunization performed in 09/2019, he does have a living will on file. He is a smoker and smoking cessation was reviewed. He does have elevated blood pressure at or above 120/80 mmHg and also elevated body mass index. For these issues I recommend he follows up with his primary care physician as scheduled. He was counseled on the importance of diet and exercise as well. Quality measures reviewed as the following: Updated today: Medication and allergy reconciliation, pain status and follow-up plan. Reviewed on 11-29-2019: up-to-date pneumonia vaccination status, he has not up-to-date influenza immunization performed in 09/2019, he does have a living will on file. He is a smoker and smoking cessation was reviewed. He does have elevated blood pressure at or above 120/80 mmHg and also elevated body mass index. For these issues I recommend he follows up with his primary care physician as scheduled. He was counseled on the importance of diet and exercise as well.
--- NOTE | 2020-03-20 22:50 | PN.PCM_ITS ---
(1) Ulcer of left lower extremity with fat layer exposed Status: Chronic Code(s): L97.922 - Non-pressure chronic ulcer of unspecified part of left lower leg with fat layer exposed (2) Ulcer of right foot with fat layer exposed Status: Chronic Code(s): L97.512 - Non-pressure chronic ulcer of other part of right foot with fat layer exposed (3) Ulcer of right lower extremity with fat layer exposed Status: Chronic Code(s): L97.912 - Non-pressure chronic ulcer of unspecified part of right lower leg with fat layer exposed (4) Type 2 diabetes mellitus with diabetic polyneuropathy Status: Chronic Code(s): E11.42 - Type 2 diabetes mellitus with diabetic polyneuropathy (5) Chronic kidney disease Status: Chronic Code(s): N18.9 - Chronic kidney disease, unspecified (6) PVD (peripheral vascular disease) Status: Suspected Code(s): I73.9 - Peripheral vascular disease, unspecified (7) Tobacco dependence due to cigarettes Status: Chronic Code(s): F17.210 - Nicotine dependence, cigarettes, uncomplicated (8) Localized edema Status: Chronic Code(s): R60.0 - Localized edema (9) Malnutrition Status: Chronic Code(s): E46 - Unspecified protein-calorie malnutrition Type of Wound Date of Service: 03/20/20 Chief Complaint: right and left Leg ulcers and right foot ulcers. History of Wound: Mr. Arguello is a 65-year-old male with multiple comorbidities follows up for delayed healing ulcers to the right foot as well as bilateral legs. This is a telephone visit that lasted less than 10 minutes in duration. A telemedicine visit was attempted however the connection failed. He denies chills, fever, nausea, or vomiting. He relates his temperature this morning was 97.4. He presents today with his on the phone. He denies odor or redness. He denies pain. His reports that the wound basically look the same as last week and are pale pink. She relates that the right leg drains more than the left leg but overall has not increased. She also relates that the right leg ulcer site appears to be much smaller this week. She denies skin peeling or other new concerns or questions at this time. They would like to return to clinic for a [id number] encounter next week. She denies the need for new dressing supplies and feels comfortable continuing with daily leg soap and water washes and dressing changes with Aquacel Ag. I answered both of their questions. Progress of Wound: improving bilateral - Physical Exam Vital Signs Temp Pulse Resp BP 96.2 F L 87 18 124/77 H 03/13/20 08:34 03/13/20 08:34 03/13/20 08:34 03/13/20 08:34 Debridement Note Post-Debridement Measurements/Treatment WC - Nurse 2 - General Ulcer CM Notes Start: 02/28/20 09:12 Freq: Status: Active Protocol: Activity Type Activity Date Activity User E-Sign Co-Sign Detail Recorded Client Recorded Date Recorded By Document 02/28/20 09:42 [id number] 02/28/20 09:45 Document 03/13/20 08:46 [id number] 03/13/20 08:48 02/28/20 03/13/20 09:42 08:46 Wound Center Nurse 2 #11 RIGHT MEDIAL FOOT -Time 09:43 08:47 -Correct Patient Yes Yes -Correct Side, Site, Position Yes Yes -Correct Procedure Yes Yes -Procedure Performed Yes Yes -Type of Procedure Debridement Debridement -Clinical Debridement Subcutaneous Subcutaneous -Post Debridement Size (cm) - Length 1.2 2.3 -Post Debridement Size (cm) - Width 0.5 1.5 -Post Debridement Size (cm) - Depth 0.1 0.1 -Total Square Cm 0.60 3.45 -Wound/Ulcer Outcome Not Healed Not Healed -Ulcer Cleansing Rinsed/ Rinsed/ Irrigated with Irrigated with Saline Saline -Foul Odor after Cleansing No No -Bioengineered Tissue No No -Bleeding Controlled with Pressure Pressure -Offloading No No -Treatment Response Procedure Procedure Tolerated Well Tolerated Well #6 POSTERIOR LLE -Time 09:43 08:47 -Correct Patient Yes Yes -Correct Side, Site, Position Yes Yes -Correct Procedure Yes Yes -Procedure Performed Yes Yes -Type of Procedure Debridement Debridement -Clinical Debridement Subcutaneous Subcutaneous -Post Debridement Size (cm) - Length 5.1 5.1 -Post Debridement Size (cm) - Width 0.6 1.1 -Post Debridement Size (cm) - Depth 0.1 0.2 -Total Square Cm 3.06 5.61 -Wound/Ulcer Outcome Not Healed Not Healed -Ulcer Cleansing Rinsed/ Rinsed/ Irrigated with Irrigated with Saline Saline -Foul Odor after Cleansing No No -Bioengineered Tissue No No -Bleeding Controlled with Pressure Pressure -Offloading No No -Treatment Response Procedure Procedure Tolerated Well Tolerated Well #4 POSTERIOR RLE -Time 09:43 08:47 -Correct Patient Yes Yes -Correct Side, Site, Position Yes Yes -Correct Procedure Yes Yes -Procedure Performed Yes Yes -Type of Procedure Debridement Debridement -Clinical Debridement Subcutaneous Subcutaneous -Post Debridement Size (cm) - Length 5.8 4.8 -Post Debridement Size (cm) - Width 0.6 1 -Post Debridement Size (cm) - Depth 0.4 0.3 -Total Square Cm 3.48 4.8 -Wound/Ulcer Outcome Not Healed Not Healed -Ulcer Cleansing Rinsed/ Rinsed/ Irrigated with Irrigated with Saline Saline -Foul Odor after Cleansing No No -Bioengineered Tissue No No -Bleeding Controlled with Pressure Pressure -Offloading No No -Treatment Response Procedure Procedure Tolerated Well Tolerated Well Pain Scale: 0-10 Numeric Is Patient Pain Free? Yes Yes Assessment/Plan Assessment: -Now status post operating room excisional subcutaneous and tendon debridements to bilateral legs and right foot with additional application of advanced wound healing products to bilateral posterior lower legs--no infection and stable today -improvement noted. 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 - previous bilateral leg fasciotomies and debridements and irrigation performed previously now with right and left leg ulcers with fat and tendon layers exposed. -diabetic neuropathy. -malnutrition suspected. 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 -delayed healing. -gait impairment and fall risk. -other comorbidities. -Continued smoking habits Plan: Disregard all wound measurements that have auto populated into this note. This patient was not seen in clinic today nor was his wounds viewable over his phone visit.
== END 2020-03-21 23:59 ==
LOC: WC 15:30
PROVIDERS: Family Provider Family Medicine; PCP Family Medicine; Visit Provider Podiatrist
DX: E11.621 Type 2 diabetes mellitus with foot ulcer (principal); E11.622 Type 2 diabetes mellitus with other skin ulcer; L97.412 Non-pressure chronic ulcer of right heel and midfoot with fat layer exposed; L97.822 Non-pressure chronic ulcer of other part of left lower leg with fat layer exposed; L97.411 Non-pressure chronic ulcer of right heel and midfoot limited to breakdown of skin; F17.210 Nicotine dependence, cigarettes, uncomplicated; E11.42 Type 2 diabetes mellitus with diabetic polyneuropathy; E11.22 Type 2 diabetes mellitus with diabetic chronic kidney disease; N18.9 Chronic kidney disease, unspecified; R60.0 Localized edema
CPT/HCPCS: 11042

== ENCOUNTER 2020-04-10 08:00 | Outpatient (RCR) | payer MEDICARE, SELFPAY ==
[2020-03-13 08:34] VITALS: BMI 32.3
[2020-03-22 00:08] VITALS: BP 124/77; PULSE 87; RESP 18; TEMP 35.7
[2020-03-27 08:11] VITALS: BP 122/85; PULSE 103; RESP 18; TEMP 34.9; BMI 32.3
--- NOTE | 2020-03-27 09:02 | PCM.WC.PN ---
(1) Ulcer of right foot with fat layer exposed Status: Chronic Current Visit: Yes Code(s): L97.512 - Non-pressure chronic ulcer of other part of right foot with fat layer exposed (2) Ulcer of right lower extremity with fat layer exposed Status: Chronic Current Visit: Yes Code(s): L97.912 - Non-pressure chronic ulcer of unspecified part of right lower leg with fat layer exposed (3) Type 2 diabetes mellitus with diabetic polyneuropathy Status: Chronic Current Visit: Yes Code(s): E11.42 - Type 2 diabetes mellitus with diabetic polyneuropathy (4) Ulcer of left lower extremity with fat layer exposed Status: Chronic Current Visit: Yes Code(s): L97.922 - Non-pressure chronic ulcer of unspecified part of left lower leg with fat layer exposed (5) Localized edema Status: Chronic Current Visit: Yes Code(s): R60.0 - Localized edema Type of Wound Date of Service: 03/27/20 Chief Complaint: right and left Leg ulcers and right foot ulcers. History of Wound: Mr. Arguello is a 65-year-old male with multiple comorbidities follows up for delayed healing ulcers to the right foot as well as bilateral legs. He denies chills, fever, nausea, or vomiting. He denies odor or redness. He denies pain. He is change the dressings as advised. Progress of Wound: improving bilateral - Physical Exam Vital Signs Temp Pulse Resp BP 94.9 F L 103 H 18 122/85 H 03/27/20 08:11 03/27/20 08:11 03/27/20 08:11 03/27/20 08:11 General: Alert, Oriented x3, Cooperative, No apparent distress Extremities: No cyanosis, Diminished Peripheral Pulses, Edema Skin: Ulcer/ Wound - No purulence, erythema, string, odor, infection. Wound Measurements and Assessment WC - Nurse 1 - General Ulcer Measurement Start: 03/27/20 08:11 Freq: Status: Active Protocol: Activity Type Activity Date Activity User E-Sign Co-Sign Detail Recorded Client Recorded Date Recorded By Document 03/27/20 08:11 JAMAL [id number] 03/27/20 08:15 JAMAL 03/27/20 08:11 Wound Center Nurse 1 [Ulcer Assessment] #11 RIGHT MEDIAL FOOT -Combined with other wound No -Photo Taken No -Epithelialization Small 1-33% -Tunneling No -Undermining/Tunneling No -Circular Undermining No -Exudate Amt Small -Exudate Type Serosanguineous -Wound Margin Flat & Intact -Granulation Amt None Present (0 %) -Slough/Fibrin Yes -Necrosis Amt Large (67-100%) -Necrotic Tissue Type Adherent Slough -Structure Exposed N/A -Texture (Lisa-wound Skin Appearance) Assessed,Callus -Moisture (Lisa-wound Skin Appearance Assessed,Dry/ ) Scaly -Color (Lisa-wound Skin Appearance) Assessed -Temperature (Lisa-wound Skin No Abnormality Appearance) (Pt Warm) -Tenderness on Palpation (Lisa-wound No Skin Appearance) -Ulcer Cleansing Rinsed/ Irrigated with Saline -Foul Odor after Cleansing No -Anesthetic Used 4% Lidocaine Solution #6 POSTERIOR LLE -Combined with other wound No -Photo Taken No -Epithelialization Small 1-33% -Tunneling No -Undermining/Tunneling No -Circular Undermining No -Exudate Amt Small -Exudate Type Serosanguineous -Wound Margin Flat & Intact -Granulation Amt Small (1-33%) -Granulation Quality [place] -Slough/Fibrin Yes -Necrosis Amt Medium (34-66%) -Necrotic Tissue Type Adherent Slough -Structure Exposed N/A -Texture (Lisa-wound Skin Appearance) Assessed,Callus -Moisture (Lisa-wound Skin Appearance Assessed,Dry/ ) Scaly -Color (Lisa-wound Skin Appearance) Assessed -Temperature (Lisa-wound Skin No Abnormality Appearance) (Pt Warm) -Tenderness on Palpation (Lisa-wound No Skin Appearance) -Ulcer Cleansing Rinsed/ Irrigated with Saline -Foul Odor after Cleansing No -Anesthetic Used 4% Lidocaine Solution #4 POSTERIOR RLE -Combined with other wound No -Current Size (cm) - Length 5.5 -Current Size (cm) - Width 3.0 -Current Size (cm) - Depth 0.2 -Total Square Cm 16.50 -Photo Taken No -Epithelialization Small 1-33% -Tunneling No -Undermining/Tunneling No -Circular Undermining No -Exudate Amt Small -Exudate Type Serosanguineous -Wound Margin Flat & Intact -Granulation Amt Small (1-33%) -Granulation Quality [place] -Slough/Fibrin Yes -Necrosis Amt Medium (34-66%) -Necrotic Tissue Type Adherent Slough -Structure Exposed N/A -Texture (Lisa-wound Skin Appearance) Assessed,Callus -Moisture (Lisa-wound Skin Appearance Assessed,Dry/ ) Scaly -Color (Lisa-wound Skin Appearance) Assessed -Temperature (Lisa-wound Skin No Abnormality Appearance) (Pt Warm) -Tenderness on Palpation (Lisa-wound No Skin Appearance) -Ulcer Cleansing Rinsed/ Irrigated with Saline -Foul Odor after Cleansing No -Anesthetic Used 4% Lidocaine Solution [Edema Assessment] -Lower Limb Edema Present Yes -Right Calf (cm) 36.0 -Right Ankle (cm) 21.5 -Left Calf (cm) 36.0 -Left Ankle (cm) 21.5 WC - Nurse 2 - General Ulcer CM Notes Start: 03/27/20 08:11 Freq: Status: Active Protocol: Activity Type Activity Date Activity User E-Sign Co-Sign Detail Recorded Client Recorded Date Recorded By Document 03/27/20 08:25 JAMAL [id number] 03/27/20 08:29 JAMAL 03/27/20 08:25 Wound Center Nurse 2 [Procedure/Treatment] #11 RIGHT MEDIAL FOOT -Time 08:25 -Correct Patient Yes -Correct Side, Site, Position Yes -Correct Procedure Yes -Procedure Performed Yes -Type of Procedure Debridement -Clinical Debridement Subcutaneous -Post Debridement Size (cm) - Length 2.5 -Post Debridement Size (cm) - Width 1.7 -Post Debridement Size (cm) - Depth 0.1 -Total Square Cm 4.25 -Wound/Ulcer Outcome Not Healed -Ulcer Cleansing Rinsed/ Irrigated with Saline -Foul Odor after Cleansing No -Bioengineered Tissue No -Bleeding Controlled with Pressure -Offloading No -Treatment Response Procedure Tolerated Well #6 POSTERIOR LLE -Time 08:26 -Correct Patient Yes -Correct Side, Site, Position Yes -Correct Procedure Yes -Procedure Performed Yes -Type of Procedure Debridement -Clinical Debridement Subcutaneous -Post Debridement Size (cm) - Length 6.1 -Post Debridement Size (cm) - Width 2.1 -Post Debridement Size (cm) - Depth 0.2 -Total Square Cm 12.81 -Wound/Ulcer Outcome Not Healed -Ulcer Cleansing Rinsed/ Irrigated with Saline -Foul Odor after Cleansing No -Bioengineered Tissue No -Bleeding Controlled with Pressure -Offloading No -Treatment Response Procedure Tolerated Well #4 POSTERIOR RLE -Time 08:26 -Correct Patient Yes -Correct Side, Site, Position Yes -Correct Procedure Yes -Procedure Performed Yes -Type of Procedure Debridement -Clinical Debridement Subcutaneous -Post Debridement Size (cm) - Length 5.5 -Post Debridement Size (cm) - Width 3.1 -Post Debridement Size (cm) - Depth 0.2 -Total Square Cm 17.05 -Wound/Ulcer Outcome Not Healed -Ulcer Cleansing Rinsed/ Irrigated with Saline -Foul Odor after Cleansing No -Bioengineered Tissue No -Bleeding Controlled with Pressure -Offloading No -Treatment Response Procedure Tolerated Well [See Physician Procedure note for Specifics] Pain Scale: 0-10 Numeric [Pain] -Is Patient Pain Free? Yes Musculoskeletal: No Tenderness to Palpation of Joints or Extremities, Muscle Wasting Neurological: - - Lack of epicritic sensation light touch Psych/Mental Status: Normal Affect, Appropriate Debridement Note Post-Debridement Measurements/Treatment WC - Nurse 2 - General Ulcer CM Notes Start: 03/27/20 08:11 Freq: Status: Active Protocol: Activity Type Activity Date Activity User E-Sign Co-Sign Detail Recorded Client Recorded Date Recorded By Document 03/27/20 08:25 JAMAL [id number] 03/27/20 08:29 JAMAL 03/27/20 08:25 Wound Center Nurse 2 #11 RIGHT MEDIAL FOOT -Time 08:25 -Correct Patient Yes -Correct Side, Site, Position Yes -Correct Procedure Yes -Procedure Performed Yes -Type of Procedure Debridement -Clinical Debridement Subcutaneous -Post Debridement Size (cm) - Length 2.5 -Post Debridement Size (cm) - Width 1.7 -Post Debridement Size (cm) - Depth 0.1 -Total Square Cm 4.25 -Wound/Ulcer Outcome Not Healed -Ulcer Cleansing Rinsed/ Irrigated with Saline -Foul Odor after Cleansing No -Bioengineered Tissue No -Bleeding Controlled with Pressure -Offloading No -Treatment Response Procedure Tolerated Well #6 POSTERIOR LLE -Time 08:26 -Correct Patient Yes -Correct Side, Site, Position Yes -Correct Procedure Yes -Procedure Performed Yes -Type of Procedure Debridement -Clinical Debridement Subcutaneous -Post Debridement Size (cm) - Length 6.1 -Post Debridement Size (cm) - Width 2.1 -Post Debridement Size (cm) - Depth 0.2 -Total Square Cm 12.81 -Wound/Ulcer Outcome Not Healed -Ulcer Cleansing Rinsed/ Irrigated with Saline -Foul Odor after Cleansing No -Bioengineered Tissue No -Bleeding Controlled with Pressure -Offloading No -Treatment Response Procedure Tolerated Well #4 POSTERIOR RLE -Time 08:26 -Correct Patient Yes -Correct Side, Site, Position Yes -Correct Procedure Yes -Procedure Performed Yes -Type of Procedure Debridement -Clinical Debridement Subcutaneous -Post Debridement Size (cm) - Length 5.5 -Post Debridement Size (cm) - Width 3.1 -Post Debridement Size (cm) - Depth 0.2 -Total Square Cm 17.05 -Wound/Ulcer Outcome Not Healed -Ulcer Cleansing Rinsed/ Irrigated with Saline -Foul Odor after Cleansing No -Bioengineered Tissue No -Bleeding Controlled with Pressure -Offloading No -Treatment Response Procedure Tolerated Well Pain Scale: 0-10 Numeric Is Patient Pain Free? Yes Wound debrided: medial foot , posterior lower leg Laterality: Right Wound Grade/Stage: grade 3 Type of Debridement: Excisional debridement Anesthesia Used: 5% Lidocaine Gel Depth: in the subcutaneous layer Percentage of wound debrided: 100 Instrument Used: #15 blade Tissue Removed: fibrous, devitalized subucutaneous, biofilm, slough Severity: Fat Layer Exposed Amount of bleeding with debridement: Mild Bleeding Controlled with: Pressure Patient tolerated procedure well - Additional Wound Wound debrided: posterior leg Laterality: Left - g Wound Grade/Stage: grade 2 Type of Debridement: Excisional debridement Anesthesia Used: 5% Lidocaine Gel Depth: in the subcutaneous layer Percentage of wound debrided: 100 Instrument Used: #15 blade Tissue Removed: fibrous, devitalized subucutaneous, biofilm, slough Severity: Fat Layer Exposed Amount of bleeding with debridement: Mild Bleeding Controlled with: Pressure Patient tolerated procedure: Patient tolerated procedure well Assessment/Plan Active Problems (Last Updated 09/28/18 @ 12:41 by Geraldine Steele) Ulcer of right foot with fat layer exposed (Chronic) Ulcer of right lower extremity with fat layer exposed (Chronic) Type 2 diabetes mellitus with diabetic polyneuropathy (Chronic) Ulcer of left lower extremity with fat layer exposed (Chronic) Localized edema (Chronic) Assessment: -Now status post operating room excisional subcutaneous and tendon debridements to bilateral legs and right foot with additional application of advanced wound healing products to bilateral posterior lower legs--no infection and stable today -improvement noted. 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 -previous bilateral leg fasciotomies and debridements and irrigation performed previously now with right and left leg ulcers with fat and tendon layers exposed. -diabetic neuropathy. -malnutrition suspected. 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 -delayed healing. -gait impairment and fall risk. -other comorbidities. -Continued smoking habits Plan: I reviewed and discussed his case today. Debridement was performed today as noted in the clinical panel. To change daily with [employer]. Is also getting smaller and draining less. It is also okay to apply a piece of [employer] followed by [employer]. He has demonstrated significant delays in healing under his prior comprehensive wound healing plan. He was reassured no local or systemic signs of illness is suspected today. To continue increased protein intake with nutritional supplementation. To continue glycemic control. He had a previous arterial Doppler scheduled with Dr. Morgan's staff on August 02, 2018 and overall perfusion was confirmed; additional intervention or workup was not recommended. It is also noted that he did have venous Doppler performed with reflux evaluation. He did not have evidence of deep venous thrombosis or venous insufficiency at that time; the vessels were compressible. I recommend he sustained from smoking and alcohol activities to optimize healing as well. This is discussed at length again today and he defers smoking cessation referral program. He decreased his habits from 20 cigarettes a day to 10 and I encouraged him to strive for 5 or less. He will follow-up at the wound healing center next week. Prior workup summary: His workup for vasculitis and underlying autoimmune disorder has been completed. A punch biopsy was sent during his last surgical intervention on June 10 and this demonstrated inflammatory changes without malignancy. He had initial screening labs and so far he has a negative RA titer, HL of the 27, KEVIN, anti-CCP, and rheumatoid factor. Several his antibody screenings were not reportable. Hyperbaric oxygen therapy was recommended and it is noted his ejection fraction was most recently 50%. He refuses at this time. . I answered his questions. To return to the wound healing center in 1 week. Due to coronavirus pandemic, reduced in person visits are offered. To call sooner if he has any questions or concerns. He will return next week for debridement. . Quality measures reviewed as the following: Updated today: Medication and allergy reconciliation, pain status and follow-up plan. updated 01-10-2020- he denies falls this past year. Reviewed on 11-29-2019: up-to-date pneumonia vaccination status, he has not up-to-date influenza immunization performed in 09/2019, he does have a living will on file. He is a smoker and smoking cessation was reviewed. He does have elevated blood pressure at or above 120/80 mmHg and also elevated body mass index. For these issues I recommend he follows up with his primary care physician as scheduled. He was counseled on the importance of diet and exercise as well. Quality measures reviewed as the following: Updated today: Medication and allergy reconciliation, pain status and follow-up plan. Reviewed on 11-29-2019: up-to-date pneumonia vaccination status, he has not up-to-date influenza immunization performed in 09/2019, he does have a living will on file. He is a smoker and smoking cessation was reviewed. He does have elevated blood pressure at or above 120/80 mmHg and also elevated body mass index. For these issues I recommend he follows up with his primary care physician as scheduled. He was counseled on the importance of diet and exercise as well.
[2020-04-03 08:08] VITALS: BP 127/91; PULSE 77; RESP 20; TEMP 36.4; BMI 32.3
--- NOTE | 2020-04-03 10:35 | PN.PCM_ITS ---
(1) Ulcer of right foot with fat layer exposed Status: Chronic Current Visit: Yes Code(s): L97.512 - Non-pressure chronic ulcer of other part of right foot with fat layer exposed (2) Ulcer of right lower extremity with fat layer exposed Status: Chronic Current Visit: Yes Code(s): L97.912 - Non-pressure chronic ulcer of unspecified part of right lower leg with fat layer exposed (3) Type 2 diabetes mellitus with diabetic polyneuropathy Status: Chronic Current Visit: Yes Code(s): E11.42 - Type 2 diabetes mellitus with diabetic polyneuropathy (4) Ulcer of left lower extremity with fat layer exposed Status: Chronic Current Visit: Yes Code(s): L97.922 - Non-pressure chronic ulcer of unspecified part of left lower leg with fat layer exposed (5) Localized edema Status: Chronic Current Visit: Yes Code(s): R60.0 - Localized edema Type of Wound Date of Service: 04/03/20 Chief Complaint: right and left Leg ulcers and right foot ulcers. History of Wound: Mr. Arguello is a 65-year-old male with multiple comorbidities follows up for delayed healing ulcers to the right foot as well as bilateral legs. He denies chills, fever, nausea, or vomiting. He denies odor or redness. He denies pain. He is change the dressings as advised with Adaptic and Aquacel Ag. Progress of Wound: improving bilateral - Physical Exam Vital Signs Temp Pulse Resp BP 97.5 F L 77 20 H 127/91 H 04/03/20 08:08 04/03/20 08:08 04/03/20 08:08 04/03/20 08:08 General: Alert, Oriented x3, Cooperative, No apparent distress HEENT: Atraumatic Extremities: Capillary Refill Less than 3 Seconds, No Calf Tenderness, Diminished Peripheral Pulses, Edema Skin: Ulcer/ Wound - No purulence, erythema string, odor, infection. Progressive peripheral epithelialization continues Wound Measurements and Assessment WC - Nurse 1 - General Ulcer Measurement Start: 03/27/20 08:11 Freq: Status: Active Protocol: Activity Type Activity Date Activity User E-Sign Co-Sign Detail Recorded Client Recorded Date Recorded By Document 04/03/20 08:08 DL [id number] 04/03/20 08:23 DL 04/03/20 08:08 Wound Center Nurse 1 [Ulcer Assessment] #11 RIGHT MEDIAL FOOT -Current Size (cm) - Length 0.5 -Current Size (cm) - Width 0.8 -Current Size (cm) - Depth 0.1 -Total Square Cm 0.40 -Photo Taken No -Exudate Amt None Present -Wound Margin Thickened -Granulation Amt Large (67-100%) -Granulation Quality [place] -Necrosis Amt Small (1-33%) -Necrotic Tissue Type Adherent Slough -Structure Exposed N/A -Texture (Lisa-wound Skin Appearance) Scarring -Moisture (Lisa-wound Skin Appearance Dry/Scaly ) -Color (Lias-wound Skin Appearance) Hemosiderin Staining -Temperature (Lisa-wound Skin No Abnormality Appearance) (Pt Warm) -Tenderness on Palpation (Lisa-wound No Skin Appearance) -Ulcer Cleansing Wound Cleanser -Foul Odor after Cleansing No -Anesthetic Used 4% Lidocaine Solution #6 POSTERIOR LLE -Current Size (cm) - Length 4.7 -Current Size (cm) - Width 1 -Current Size (cm) - Depth 0.1 -Total Square Cm 4.7 -Photo Taken No -Exudate Amt Small -Exudate Type Serosanguineous -Wound Margin Thickened -Granulation Amt Large (67-100%) -Granulation Quality Red -Necrosis Amt Small (1-33%) -Necrotic Tissue Type Adherent Slough -Structure Exposed N/A -Texture (Lisa-wound Skin Appearance) Scarring -Moisture (Lisa-wound Skin Appearance Dry/Scaly ) -Color (Lisa-wound Skin Appearance) Hemosiderin Staining -Temperature (Lisa-wound Skin No Abnormality Appearance) (Pt Warm) -Tenderness on Palpation (Lisa-wound No Skin Appearance) -Ulcer Cleansing Wound Cleanser -Foul Odor after Cleansing No -Anesthetic Used 4% Lidocaine Solution #4 POSTERIOR RLE -Current Size (cm) - Length 4.5 -Current Size (cm) - Width 1.1 -Current Size (cm) - Depth 0.2 -Total Square Cm 4.95 -Photo Taken No -Exudate Amt Small -Exudate Type Serosanguineous -Wound Margin Distinct, Outline Attached -Granulation Amt Large (67-100%) -Granulation Quality Red -Necrosis Amt Small (1-33%) -Necrotic Tissue Type Adherent Slough -Structure Exposed N/A -Texture (Lisa-wound Skin Appearance) Scarring -Moisture (Lisa-wound Skin Appearance Dry/Scaly ) -Color (Lisa-wound Skin Appearance) Hemosiderin Staining -Temperature (Lisa-wound Skin No Abnormality Appearance) (Pt Warm) -Tenderness on Palpation (Lisa-wound No Skin Appearance) -Ulcer Cleansing Wound Cleanser -Foul Odor after Cleansing No -Anesthetic Used 4% Lidocaine Solution [Edema Assessment] -Right Calf (cm) 37.5 -Right Ankle (cm) 21.3 -Left Calf (cm) 37 -Left Ankle (cm) 20.4 WC - Nurse 2 - General Ulcer CM Notes Start: 03/27/20 08:11 Freq: Status: Active Protocol: Activity Type Activity Date Activity User E-Sign Co-Sign Detail Recorded Client Recorded Date Recorded By Document 04/03/20 08:30 DL [id number] 04/03/20 08:31 DL 04/03/20 08:30 Wound Center Nurse 2 [Procedure/Treatment] #11 RIGHT MEDIAL FOOT -Time 08:30 -Correct Patient Yes -Correct Side, Site, Position Yes -Correct Procedure Yes -Procedure Performed Yes -Type of Procedure Debridement -Clinical Debridement Subcutaneous -Post Debridement Size (cm) - Length 0.6 -Post Debridement Size (cm) - Width 0.8 -Post Debridement Size (cm) - Depth 0.2 -Total Square Cm 0.48 -Wound/Ulcer Outcome Not Healed -Ulcer Cleansing Rinsed/ Irrigated with Saline -Foul Odor after Cleansing No -Bioengineered Tissue No -Bleeding Controlled with Pressure -Offloading No -Treatment Response Procedure Tolerated Well #6 POSTERIOR LLE -Time 08:30 -Correct Patient Yes -Correct Side, Site, Position Yes -Correct Procedure Yes -Procedure Performed Yes -Type of Procedure Debridement -Clinical Debridement Subcutaneous -Post Debridement Size (cm) - Length 4.5 -Post Debridement Size (cm) - Width 1.2 -Post Debridement Size (cm) - Depth 0.2 -Total Square Cm 5.40 -Wound/Ulcer Outcome Not Healed -Ulcer Cleansing Rinsed/ Irrigated with Saline -Foul Odor after Cleansing No -Bioengineered Tissue No -Bleeding Controlled with Pressure -Offloading No -Treatment Response Procedure Tolerated Well #4 POSTERIOR RLE -Time 08:31 -Correct Patient Yes -Correct Side, Site, Position Yes -Correct Procedure Yes -Procedure Performed Yes -Type of Procedure Debridement -Clinical Debridement Subcutaneous -Post Debridement Size (cm) - Length 4.8 -Post Debridement Size (cm) - Width 1.1 -Post Debridement Size (cm) - Depth 0.1 -Total Square Cm 5.28 -Wound/Ulcer Outcome Not Healed -Ulcer Cleansing Rinsed/ Irrigated with Saline -Foul Odor after Cleansing No -Bioengineered Tissue No -Bleeding Controlled with Pressure -Offloading No -Treatment Response Procedure Tolerated Well [See Physician Procedure note for Specifics] Pain Scale: 0-10 Numeric [Pain] -Is Patient Pain Free? Yes Musculoskeletal: No Tenderness to Palpation of Joints or Extremities, Muscle Wasting Neurological: - - Lack epicritic sensation light touch Psych/Mental Status: Normal Affect, Appropriate Debridement Note Post-Debridement Measurements/Treatment WC - Nurse 2 - General Ulcer CM Notes Start: 03/27/20 08:11 Freq: Status: Active Protocol: Activity Type Activity Date Activity User E-Sign Co-Sign Detail Recorded Client Recorded Date Recorded By Document 03/27/20 08:25 JF [id number] 03/27/20 08:29 JF Document 04/03/20 08:30 DL [id number] 04/03/20 08:31 DL 03/27/20 04/03/20 08:25 08:30 Wound Center Nurse 2 #11 RIGHT MEDIAL FOOT -Time 08:25 08:30 -Correct Patient Yes Yes -Correct Side, Site, Position Yes Yes -Correct Procedure Yes Yes -Procedure Performed Yes Yes -Type of Procedure Debridement Debridement -Clinical Debridement Subcutaneous Subcutaneous -Post Debridement Size (cm) - Length 2.5 0.6 -Post Debridement Size (cm) - Width 1.7 0.8 -Post Debridement Size (cm) - Depth 0.1 0.2 -Total Square Cm 4.25 0.48 -Wound/Ulcer Outcome Not Healed Not Healed -Ulcer Cleansing Rinsed/ Rinsed/ Irrigated with Irrigated with Saline Saline -Foul Odor after Cleansing No No -Bioengineered Tissue No No -Bleeding Controlled with Pressure Pressure -Offloading No No -Treatment Response Procedure Procedure Tolerated Well Tolerated Well #6 POSTERIOR LLE -Time 08:26 08:30 -Correct Patient Yes Yes -Correct Side, Site, Position Yes Yes -Correct Procedure Yes Yes -Procedure Performed Yes Yes -Type of Procedure Debridement Debridement -Clinical Debridement Subcutaneous Subcutaneous -Post Debridement Size (cm) - Length 6.1 4.5 -Post Debridement Size (cm) - Width 2.1 1.2 -Post Debridement Size (cm) - Depth 0.2 0.2 -Total Square Cm 12.81 5.40 -Wound/Ulcer Outcome Not Healed Not Healed -Ulcer Cleansing Rinsed/ Rinsed/ Irrigated with Irrigated with Saline Saline -Foul Odor after Cleansing No No -Bioengineered Tissue No No -Bleeding Controlled with Pressure Pressure -Offloading No No -Treatment Response Procedure Procedure Tolerated Well Tolerated Well #4 POSTERIOR RLE -Time 08:26 08:31 -Correct Patient Yes Yes -Correct Side, Site, Position Yes Yes -Correct Procedure Yes Yes -Procedure Performed Yes Yes -Type of Procedure Debridement Debridement -Clinical Debridement Subcutaneous Subcutaneous -Post Debridement Size (cm) - Length 5.5 4.8 -Post Debridement Size (cm) - Width 3.1 1.1 -Post Debridement Size (cm) - Depth 0.2 0.1 -Total Square Cm 17.05 5.28 -Wound/Ulcer Outcome Not Healed Not Healed -Ulcer Cleansing Rinsed/ Rinsed/ Irrigated with Irrigated with Saline Saline -Foul Odor after Cleansing No No -Bioengineered Tissue No No -Bleeding Controlled with Pressure Pressure -Offloading No No -Treatment Response Procedure Procedure Tolerated Well Tolerated Well Pain Scale: 0-10 Numeric Is Patient Pain Free? Yes Yes Wound debrided: medial foot, posterior leg Laterality: Right Wound Grade/Stage: grade 3 Type of Debridement: Excisional debridement Anesthesia Used: 5% Lidocaine Gel Depth: in the subcutaneous layer Percentage of wound debrided: 100 Instrument Used: #15 blade Tissue Removed: fibrous, devitalized subcutaneous, biofilm, slough Severity: Fat Layer Exposed Amount of bleeding with debridement: Mild Bleeding Controlled with: Pressure Patient tolerated procedure well - Additional Wound Wound debrided: posterior leg Laterality: Left Wound Grade/Stage: grade 2 Type of Debridement: Excisional debridement Anesthesia Used: 5% Lidocaine Gel Depth: in the subcutaneous layer Percentage of wound debrided: 100 Instrument Used: #15 blade Tissue Removed: fibrous, devitalized subcutaneous, biofilm, slough Severity: Fat Layer Exposed Amount of bleeding with debridement: Mild Bleeding Controlled with: Pressure Patient tolerated procedure: Patient tolerated procedure well Assessment/Plan Active Problems (Last Updated 09/28/18 @ 12:41 by Geraldine Steele) Ulcer of right foot with fat layer exposed (Chronic) Ulcer of right lower extremity with fat layer exposed (Chronic) Type 2 diabetes mellitus with diabetic polyneuropathy (Chronic) Ulcer of left lower extremity with fat layer exposed (Chronic) Localized edema (Chronic) Assessment: -Now status post operating room excisional subcutaneous and tendon debridements to bilateral legs and right foot with additional application of advanced wound healing products to bilateral posterior lower legs--no infection and stable today -improvement noted. 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 - previous bilateral leg fasciotomies and debridements and irrigation performed previously now with right and left leg ulcers with fat and tendon layers exposed. -diabetic neuropathy. -malnutrition suspected. 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 -delayed healing. -gait impairment and fall risk. -other comorbidities. -Continued smoking habits Plan: I reviewed and discussed his case today. Debridement was performed today as noted in the clinical panel. To change daily with Aquacel Ag and Adaptic. He was reassured no local or systemic signs of illness is suspected today. To continue increased protein intake with nutritional supplementation. To continue glycemic control. He had a previous arterial Doppler scheduled with Dr. Morgan's staff on August 02, 2018 and overall perfusion was confirmed; additional intervention or workup was not recommended. It is also noted that he did have venous Doppler performed with reflux evaluation. He did not have evidence of deep venous thrombosis or venous insufficiency at that time; the vessels were compressible. I recommend he sustained from smoking and alcohol activities to optimize healing as well. This is discussed at length again today and he defers smoking cessation referral program. He decreased his habits from 20 cigarettes a day to 10 and I encouraged him to strive for 5 or less. He will follow-up at the wound healing center next week. Prior workup summary: His workup for vasculitis and underlying autoimmune disorder has been completed. A punch biopsy was sent during his last surgical intervention on June 10 and this demonstrated inflammatory changes without malignancy. He had initial screening labs and so far he has a negative RA titer, HL of the 27, KEVIN, anti- CCP, and rheumatoid factor. Several his antibody screenings were not reportable. Hyperbaric oxygen therapy was recommended and it is noted his ejection fraction was most recently 50%. He refuses at this time. . I answered his questions. To return to the wound healing center in 1 week. Due to [place] pandemic, reduced in person visits are offered. To call sooner if he has any questions or concerns. He will return next week for debridement. . Quality measures reviewed as the following: Updated today: Medication and allergy reconciliation, pain status and follow-up plan. updated 01-10-2020- he denies falls this past year. Reviewed on 11-29-2019: up-to-date pneumonia vaccination status, he has not up-to-date influenza immunization performed in 09/2019, he does have a living will on file. He is a smoker and smoking cessation was reviewed. He does have elevated blood pressure at or above 120/80 mmHg and also elevated body mass index. For these issues I recommend he follows up with his primary care physician as scheduled. He was counseled on the importance of diet and exercise as well. Quality measures reviewed as the following: Updated today: Medication and allergy reconciliation, pain status and follow-up plan. Reviewed on 11-29-2019: up-to-date pneumonia vaccination status, he has not up-to-date influenza immunization performed in 09/2019, he does have a living will on file. He is a smoker and smoking cessation was reviewed. He does have elevated blood pressure at or above 120/80 mmHg and also elevated body mass index. For these issues I recommend he follows up with his primary care physician as scheduled. He was counseled on the importance of diet and exercise as well.
[2020-04-10 08:09] VITALS: BP 146/90; PULSE 99; RESP 18; TEMP 36.2; BMI 32.3
--- NOTE | 2020-04-10 09:24 | WC ---
pt transfering to wheelchair after appointment. noticed skin tear on R great toe plantar . dressing appliedto R great toe due to mild drainage noted. pt denies pain and instructed to leave dressing on R great toe . made aware of above.
--- NOTE | 2020-04-10 13:15 | PCM.WC.PN ---
(1) Ulcer of right foot with fat layer exposed Status: Chronic Code(s): L97.512 - Non-pressure chronic ulcer of other part of right foot with fat layer exposed (2) Ulcer of right lower extremity with fat layer exposed Status: Chronic Code(s): L97.912 - Non-pressure chronic ulcer of unspecified part of right lower leg with fat layer exposed (3) Type 2 diabetes mellitus with diabetic polyneuropathy Status: Chronic Code(s): E11.42 - Type 2 diabetes mellitus with diabetic polyneuropathy (4) Ulcer of left lower extremity with fat layer exposed Status: Chronic Code(s): L97.922 - Non-pressure chronic ulcer of unspecified part of left lower leg with fat layer exposed (5) Localized edema Status: Chronic Code(s): R60.0 - Localized edema (6) Blister of right leg Status: Acute Code(s): S80.821A - Blister (nonthermal), right lower leg, initial encounter (7) Delayed wound healing Status: Chronic Code(s): T14.8XXD - Other injury of unspecified body region, subsequent encounter Type of Wound Date of Service: 04/10/20 Chief Complaint: right and left Leg ulcers and right foot ulcers. History of Wound: Mr. Arguello is a 65-year-old male with multiple comorbidities follows up for delayed healing ulcers to the right foot as well as bilateral legs. He denies chills, fever, nausea, or vomiting. He denies odor or redness. He denies pain. He changes the dressings as advised with Adaptic and Aquacel Ag. Progress of Wound: improving bilateral - Physical Exam Vital Signs Temp Pulse Resp BP 97.2 F L 99 18 146/90 H 04/10/20 08:09 04/10/20 08:09 04/10/20 08:09 04/10/20 08:09 General: Alert, Oriented x3, Cooperative, No apparent distress Extremities: No cyanosis, Capillary Refill Less than 3 Seconds, No Calf Tenderness, Diminished Peripheral Pulses, Edema - Mild Skin: Ulcer/ Wound - No purulence, erythema, strength, odor, infection. All ulcer beds are granular and healthy Wound Measurements and Assessment WC - Nurse 1 - General Ulcer Measurement Start: 03/27/20 08:11 Freq: Status: Active Protocol: Activity Type Activity Date Activity User E-Sign Co-Sign Detail Recorded Client Recorded Date Recorded By Document 04/10/20 08:09 RB [id number] 04/10/20 08:23 RB 04/10/20 08:09 Wound Center Nurse 1 [Ulcer Assessment] #11 RIGHT MEDIAL FOOT -Combined with other wound No -Photo Taken No -Epithelialization None Present -Tunneling No -Undermining/Tunneling No -Circular Undermining No -Classification - Thickness Full Thickness without Exposed Support Structure -Change in Wound Grade/Stage Yes Query Text:If change please identify the Stage/Grade in the comment (ie. S2 G3) -Exudate Amt Medium -Exudate Type Serosanguineous -Wound Margin Indistinct, Non -Visible -Granulation Amt None Present (0 %) -Granulation Quality N/A -Necrosis Amt Small (1-33%) -Necrotic Tissue Type Adherent Slough -Structure Exposed None/Limited to Skin Breakdown -Texture (Lisa-wound Skin Appearance) Assessed, Scarring -Moisture (Lisa-wound Skin Appearance Assessed, ) Weeping -Color (Lisa-wound Skin Appearance) Erythema -Temperature (Lisa-wound Skin No Abnormality Appearance) (Pt Warm) -Tenderness on Palpation (Lisa-wound No Skin Appearance) -Ulcer Cleansing Rinsed/ Irrigated with Saline -Anesthetic Used 4% Lidocaine Solution #6 POSTERIOR LLE -Combined with other wound No -Current Size (cm) - Length 2.5 -Current Size (cm) - Width 1.0 -Current Size (cm) - Depth 0.2 -Total Square Cm 2.50 -Photo Taken No -Epithelialization None Present -Tunneling No -Undermining/Tunneling No -Circular Undermining No -Classification - Thickness Full Thickness without Exposed Support Structure -Exudate Amt Medium -Exudate Type Serosanguineous -Wound Margin Indistinct, Non -Visible -Necrosis Amt Small (1-33%) -Necrotic Tissue Type Adherent Slough -Structure Exposed None/Limited to Skin Breakdown -Texture (Lisa-wound Skin Appearance) Assessed, Scarring -Moisture (Lisa-wound Skin Appearance No Abnormality, ) Dry/Scaly -Color (Lisa-wound Skin Appearance) Assessed, Erythema -Temperature (Lisa-wound Skin No Abnormality Appearance) (Pt Warm) -Tenderness on Palpation (Lisa-wound No Skin Appearance) -Ulcer Cleansing Rinsed/ Irrigated with Saline -Foul Odor after Cleansing No -Anesthetic Used 4% Lidocaine Solution #4 POSTERIOR RLE -Combined with other wound No -Current Size (cm) - Length 4.5 -Current Size (cm) - Width 1.0 -Current Size (cm) - Depth 0.3 -Total Square Cm 4.50 -Photo Taken No -Epithelialization None Present -Tunneling No -Undermining/Tunneling No -Circular Undermining No -Classification - Thickness Full Thickness without Exposed Support Structure -Exudate Amt Medium -Exudate Type Serosanguineous -Wound Margin Indistinct, Non -Visible -Granulation Amt None Present (0 %) -Granulation Quality N/A -Slough/Fibrin No -Necrosis Amt Small (1-33%) -Necrotic Tissue Type Adherent Slough -Structure Exposed None/Limited to Skin Breakdown -Texture (Lisa-wound Skin Appearance) Assessed, Scarring -Moisture (Lisa-wound Skin Appearance Assessed, ) Weeping -Color (Lisa-wound Skin Appearance) Assessed, Erythema -Temperature (Lisa-wound Skin No Abnormality Appearance) (Pt Warm) -Tenderness on Palpation (Lisa-wound No Skin Appearance) -Ulcer Cleansing Rinsed/ Irrigated with Saline -Foul Odor after Cleansing No -Anesthetic Used 4% Lidocaine Solution [Edema Assessment] -Point of measurement (cm from the 37.7 medial instep) -Point of Measurement (cm from the 22.4 medial instep) -Left Calf (cm) 38.0 -Left Ankle (cm) 22.3 WC - Nurse 2 - General Ulcer CM Notes Start: 03/27/20 08:11 Freq: Status: Active Protocol: Activity Type Activity Date Activity User E-Sign Co-Sign Detail Recorded Client Recorded Date Recorded By Document 04/10/20 08:32 JAMAL [id number] 04/10/20 08:36 JAMAL 04/10/20 08:32 Wound Center Nurse 2 [Procedure/Treatment] #11 RIGHT MEDIAL FOOT -Time 08:33 -Correct Patient Yes -Correct Side, Site, Position Yes -Correct Procedure Yes -Procedure Performed Yes -Type of Procedure Debridement -Clinical Debridement Subcutaneous -Post Debridement Size (cm) - Length 0.4 -Post Debridement Size (cm) - Width 1.2 -Post Debridement Size (cm) - Depth 0.2 -Total Square Cm 0.48 -Wound/Ulcer Outcome Not Healed -Ulcer Cleansing Rinsed/ Irrigated with Saline -Foul Odor after Cleansing No -Bioengineered Tissue No -Bleeding Controlled with Pressure -Offloading No -Treatment Response Procedure Tolerated Well #6 POSTERIOR LLE -Time 08:33 -Correct Patient Yes -Correct Side, Site, Position Yes -Correct Procedure Yes -Procedure Performed Yes -Type of Procedure Debridement -Clinical Debridement Subcutaneous -Post Debridement Size (cm) - Length 2.5 -Post Debridement Size (cm) - Width 1.1 -Post Debridement Size (cm) - Depth 0.2 -Total Square Cm 2.75 -Wound/Ulcer Outcome Not Healed -Ulcer Cleansing Rinsed/ Irrigated with Saline -Foul Odor after Cleansing No -Bioengineered Tissue No -Bleeding Controlled with Pressure -Offloading No -Treatment Response Procedure Tolerated Well #4 POSTERIOR RLE -Time 08:33 -Correct Patient Yes -Correct Side, Site, Position Yes -Correct Procedure Yes -Procedure Performed Yes -Type of Procedure Debridement -Clinical Debridement Subcutaneous -Post Debridement Size (cm) - Length 4.5 -Post Debridement Size (cm) - Width 1.1 -Post Debridement Size (cm) - Depth 0.3 -Total Square Cm 4.95 -Wound/Ulcer Outcome Not Healed -Ulcer Cleansing Rinsed/ Irrigated with Saline -Foul Odor after Cleansing No -Bioengineered Tissue No -Bleeding Controlled with Pressure -Offloading No -Treatment Response Procedure Tolerated Well [See Physician Procedure note for Specifics] Pain Scale: 0-10 Numeric [Pain] -Is Patient Pain Free? Yes Musculoskeletal: No Tenderness to Palpation of Joints or Extremities, Muscle Wasting Neurological: - - Lack of normal sensation Psych/Mental Status: Normal Affect, Appropriate Debridement Note Post-Debridement Measurements/Treatment WC - Nurse 2 - General Ulcer CM Notes Start: 03/27/20 08:11 Freq: Status: Active Protocol: Activity Type Activity Date Activity User E-Sign Co-Sign Detail Recorded Client Recorded Date Recorded By Document 03/27/20 08:25 [id number] 03/27/20 08:29 JF Document 04/03/20 08:30 DL [id number] 04/03/20 08:31 DL Document 04/10/20 08:32 JAMAL [id number] 04/10/20 08:36 JF 03/27/20 04/03/20 04/10/20 08:25 08:30 08:32 Wound Center Nurse 2 #11 RIGHT MEDIAL FOOT -Time 08:25 08:30 08:33 -Correct Patient Yes Yes Yes -Correct Side, Site, Position Yes Yes Yes -Correct Procedure Yes Yes Yes -Procedure Performed Yes Yes Yes -Type of Procedure Debridement Debridement Debridement -Clinical Debridement Subcutaneous Subcutaneous Subcutaneous -Post Debridement Size (cm) - Length 2.5 0.6 0.4 -Post Debridement Size (cm) - Width 1.7 0.8 1.2 -Post Debridement Size (cm) - Depth 0.1 0.2 0.2 -Total Square Cm 4.25 0.48 0.48 -Wound/Ulcer Outcome Not Healed Not Healed Not Healed -Ulcer Cleansing Rinsed/ Rinsed/ Rinsed/ Irrigated with Irrigated with Irrigated with Saline Saline Saline -Foul Odor after Cleansing No No No -Bioengineered Tissue No No No -Bleeding Controlled with Pressure Pressure Pressure -Offloading No No No -Treatment Response Procedure Procedure Procedure Tolerated Well Tolerated Well Tolerated Well #6 POSTERIOR LLE -Time 08: 08:30 08:33 -Correct Patient Yes Yes Yes -Correct Side, Site, Position Yes Yes Yes -Correct Procedure Yes Yes Yes -Procedure Performed Yes Yes Yes -Type of Procedure Debridement Debridement Debridement -Clinical Debridement Subcutaneous Subcutaneous Subcutaneous -Post Debridement Size (cm) - Length 6.1 4.5 2.5 -Post Debridement Size (cm) - Width 2.1 1.2 1.1 -Post Debridement Size (cm) - Depth 0.2 0.2 0.2 -Total Square Cm 12.81 5.40 2.75 -Wound/Ulcer Outcome Not Healed Not Healed Not Healed -Ulcer Cleansing Rinsed/ Rinsed/ Rinsed/ Irrigated with Irrigated with Irrigated with Saline Saline Saline -Foul Odor after Cleansing No No No -Bioengineered Tissue No No No -Bleeding Controlled with Pressure Pressure Pressure -Offloading No No No -Treatment Response Procedure Procedure Procedure Tolerated Well Tolerated Well Tolerated Well #4 POSTERIOR RLE -Time 08: 08:31 08:33 -Correct Patient Yes Yes Yes -Correct Side, Site, Position Yes Yes Yes -Correct Procedure Yes Yes Yes -Procedure Performed Yes Yes Yes -Type of Procedure Debridement Debridement Debridement -Clinical Debridement Subcutaneous Subcutaneous Subcutaneous -Post Debridement Size (cm) - Length 5.5 4.8 4.5 -Post Debridement Size (cm) - Width 3.1 1.1 1.1 -Post Debridement Size (cm) - Depth 0.2 0.1 0.3 -Total Square Cm 17.05 5.28 4.95 -Wound/Ulcer Outcome Not Healed Not Healed Not Healed -Ulcer Cleansing Rinsed/ Rinsed/ Rinsed/ Irrigated with Irrigated with Irrigated with Saline Saline Saline -Foul Odor after Cleansing No No No -Bioengineered Tissue No No No -Bleeding Controlled with Pressure Pressure Pressure -Offloading No No No -Treatment Response Procedure Procedure Procedure Tolerated Well Tolerated Well Tolerated Well Pain Scale: 0-10 Numeric Is Patient Pain Free? Yes Yes Yes Wound debrided: posterior leg, medial foot Laterality: Right Wound Grade/Stage: grade 3 Type of Debridement: Excisional debridement Anesthesia Used: 5% Lidocaine Gel Depth: in the subcutaneous layer Percentage of wound debrided: 100 Instrument Used: #15 blade Tissue Removed: fibrous, devitalized subcutaneous, biofilm, slough Severity: Fat Layer Exposed Amount of bleeding with debridement: Mild Bleeding Controlled with: Pressure Patient tolerated procedure well - Additional Wound Wound debrided: posterior leg Laterality: Left Wound Grade/Stage: grade 2 Type of Debridement: Excisional debridement Anesthesia Used: 5% Lidocaine Gel Depth: in the subcutaneous layer Percentage of wound debrided: 100 Instrument Used: #15 blade Tissue Removed: fibrous, devitalized subcutaneous, biofilm, slough Severity: Fat Layer Exposed Amount of bleeding with debridement: Mild Bleeding Controlled with: Pressure Patient tolerated procedure: Patient tolerated procedure well Assessment/Plan Assessment: -Now status post operating room excisional subcutaneous and tendon debridements to bilateral legs and right foot with additional application of advanced wound healing products to bilateral posterior lower legs--no infection and stable today -improvement noted. 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 -previous bilateral leg fasciotomies and debridements and irrigation performed previously now with right and left leg ulcers with fat and tendon layers exposed. -diabetic neuropathy. -malnutrition suspected. 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 -delayed healing. -gait impairment and fall risk. -other comorbidities. -Continued smoking habits Plan: I reviewed and discussed his case today. Debridement was performed today as noted in the clinical panel. To change daily with [employer] and [employer]. He was reassured no local or systemic signs of illness is suspected today. To continue increased protein intake with nutritional supplementation. To continue glycemic control. He had a previous arterial Doppler scheduled with Dr. Morgan's staff on August 02, 2018 and overall perfusion was confirmed; additional intervention or workup was not recommended. It is also noted that he did have venous Doppler performed with reflux evaluation. He did not have evidence of deep venous thrombosis or venous insufficiency at that time; the vessels were compressible. I recommend he sustained from smoking and alcohol activities to optimize healing as well. This is discussed at length again today and he defers smoking cessation referral program. He decreased his habits from 20 cigarettes a day to 10 and I encouraged him to strive for 5 or less. He will follow-up at the wound healing center next week. Prior workup summary: His workup for vasculitis and underlying autoimmune disorder has been completed. A punch biopsy was sent during his last surgical intervention on June 10 and this demonstrated inflammatory changes without malignancy. He had initial screening labs and so far he has a negative RA titer, HL of the 27, KEVIN, anti-CCP, and rheumatoid factor. Several his antibody screenings were not reportable. Hyperbaric oxygen therapy was recommended and it is noted his ejection fraction was most recently 50%. He refuses at this time. . I answered his questions. To return to the wound healing center in 1 week. Due to coronavirus pandemic, reduced in person visits are offered. To call sooner if he has any questions or concerns. He will return next week for debridement. . Quality measures reviewed as the following: Updated today: Medication and allergy reconciliation, pain status and follow-up plan. updated 01-10-2020- he denies falls this past year. Reviewed on 11-29-2019: up-to-date pneumonia vaccination status, he has not up-to-date influenza immunization performed in 09/2019, he does have a living will on file. He is a smoker and smoking cessation was reviewed. He does have elevated blood pressure at or above 120/80 mmHg and also elevated body mass index. For these issues I recommend he follows up with his primary care physician as scheduled. He was counseled on the importance of diet and exercise as well. Quality measures reviewed as the following: Updated today: Medication and allergy reconciliation, pain status and follow-up plan. Reviewed on 11-29-2019: up-to-date pneumonia vaccination status, he has not up-to-date influenza immunization performed in 09/2019, he does have a living will on file. He is a smoker and smoking cessation was reviewed. He does have elevated blood pressure at or above 120/80 mmHg and also elevated body mass index. For these issues I recommend he follows up with his primary care physician as scheduled. He was counseled on the importance of diet and exercise as well.
--- NOTE | 2020-04-17 09:02 | PN.PCM_ITS ---
(1) Ulcer of right foot with fat layer exposed Status: Chronic Code(s): L97.512 - Non-pressure chronic ulcer of other part of right foot with fat layer exposed (2) Ulcer of right lower extremity with fat layer exposed Status: Chronic Code(s): L97.912 - Non-pressure chronic ulcer of unspecified part of right lower leg with fat layer exposed (3) Type 2 diabetes mellitus with diabetic polyneuropathy Status: Chronic Code(s): E11.42 - Type 2 diabetes mellitus with diabetic polyneuropathy (4) Ulcer of left lower extremity with fat layer exposed Status: Chronic Code(s): L97.922 - Non-pressure chronic ulcer of unspecified part of left lower leg with fat layer exposed (5) Localized edema Status: Chronic Code(s): R60.0 - Localized edema (6) Blister of right leg Status: Acute Code(s): S80.821A - Blister (nonthermal), right lower leg, initial encounter (7) Delayed wound healing Status: Chronic Code(s): T14.8XXD - Other injury of unspecified body region, subsequent encounter Type of Wound Date of Service: 04/17/20 Chief Complaint: right and left Leg ulcers and right foot ulcers. History of Wound: Mr. Arguello is a 65-year-old male with multiple comorbidities follows up for delayed healing ulcers to the right foot as well as bilateral legs. He denies chills, fever, nausea, or vomiting. He denies odor or redness. He denies pain. He changes the dressings as advised with Adaptic and Aquacel Ag. This is a telephone visit today. He relates his temperature was 97.4 this morning. He continues to wear his protective offloading right cam walker boot as advised. Progress of Wound: improving bilateral Objective: This is a telephone encounter without visual capabilities. - Physical Exam Vital Signs Temp Pulse Resp BP 97.2 F L 99 18 146/90 H 04/10/20 08:09 04/10/20 08:09 04/10/20 08:09 04/10/20 08:09 General: Alert, Oriented x3, Cooperative, No apparent distress HEENT: Atraumatic Debridement Note Post-Debridement Measurements/Treatment WC - Nurse 2 - General Ulcer CM Notes Start: 03/27/20 08:11 Freq: Status: Active Protocol: Activity Type Activity Date Activity User E-Sign Co-Sign Detail Recorded Client Recorded Date Recorded By Document 03/27/20 08:25 JF [id number] 03/27/20 08:29 JF Document 04/03/20 08:30 DL [id number] 04/03/20 08:31 DL Document 04/10/20 08:32 JF [id number] 04/10/20 08:36 JF 03/27/20 04/03/20 04/10/20 08:25 08:30 08:32 Wound Center Nurse 2 #11 RIGHT MEDIAL FOOT -Time 08:25 08:30 08:33 -Correct Patient Yes Yes Yes -Correct Side, Site, Position Yes Yes Yes -Correct Procedure Yes Yes Yes -Procedure Performed Yes Yes Yes -Type of Procedure Debridement Debridement Debridement -Clinical Debridement Subcutaneous Subcutaneous Subcutaneous -Post Debridement Size (cm) - Length 2.5 0.6 0.4 -Post Debridement Size (cm) - Width 1.7 0.8 1.2 -Post Debridement Size (cm) - Depth 0.1 0.2 0.2 -Total Square Cm 4.25 0.48 0.48 -Wound/Ulcer Outcome Not Healed Not Healed Not Healed -Ulcer Cleansing Rinsed/ Rinsed/ Rinsed/ Irrigated with Irrigated with Irrigated with Saline Saline Saline -Foul Odor after Cleansing No No No -Bioengineered Tissue No No No -Bleeding Controlled with Pressure Pressure Pressure -Offloading No No No -Treatment Response Procedure Procedure Procedure Tolerated Well Tolerated Well Tolerated Well #6 POSTERIOR LLE -Time 08: 08:30 08:33 -Correct Patient Yes Yes Yes -Correct Side, Site, Position Yes Yes Yes -Correct Procedure Yes Yes Yes -Procedure Performed Yes Yes Yes -Type of Procedure Debridement Debridement Debridement -Clinical Debridement Subcutaneous Subcutaneous Subcutaneous -Post Debridement Size (cm) - Length 6.1 4.5 2.5 -Post Debridement Size (cm) - Width 2.1 1.2 1.1 -Post Debridement Size (cm) - Depth 0.2 0.2 0.2 -Total Square Cm 12.81 5.40 2.75 -Wound/Ulcer Outcome Not Healed Not Healed Not Healed -Ulcer Cleansing Rinsed/ Rinsed/ Rinsed/ Irrigated with Irrigated with Irrigated with Saline Saline Saline -Foul Odor after Cleansing No No No -Bioengineered Tissue No No No -Bleeding Controlled with Pressure Pressure Pressure -Offloading No No No -Treatment Response Procedure Procedure Procedure Tolerated Well Tolerated Well Tolerated Well #4 POSTERIOR RLE -Time 08:26 08:31 08:33 -Correct Patient Yes Yes Yes -Correct Side, Site, Position Yes Yes Yes -Correct Procedure Yes Yes Yes -Procedure Performed Yes Yes Yes -Type of Procedure Debridement Debridement Debridement -Clinical Debridement Subcutaneous Subcutaneous Subcutaneous -Post Debridement Size (cm) - Length 5.5 4.8 4.5 -Post Debridement Size (cm) - Width 3.1 1.1 1.1 -Post Debridement Size (cm) - Depth 0.2 0.1 0.3 -Total Square Cm 17.05 5.28 4.95 -Wound/Ulcer Outcome Not Healed Not Healed Not Healed -Ulcer Cleansing Rinsed/ Rinsed/ Rinsed/ Irrigated with Irrigated with Irrigated with Saline Saline Saline -Foul Odor after Cleansing No No No -Bioengineered Tissue No No No -Bleeding Controlled with Pressure Pressure Pressure -Offloading No No No -Treatment Response Procedure Procedure Procedure Tolerated Well Tolerated Well Tolerated Well Pain Scale: 0-10 Numeric Is Patient Pain Free? Yes Yes Yes No debridement was completed today - This is a telephone encounter Assessment/Plan Assessment: -Now status post operating room excisional subcutaneous and tendon debridements to bilateral legs and right foot with additional application of advanced wound healing products to bilateral posterior lower legs--no infection and stable today -improvement noted. 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 - previous bilateral leg fasciotomies and debridements and irrigation performed previously now with right and left leg ulcers with fat and tendon layers exposed. -diabetic neuropathy. -malnutrition suspected. 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 -delayed healing. -gait impairment and fall risk. -other comorbidities. -Continued smoking habits Plan: I reviewed and discussed his case today via telephone call. Debridement was not performed today. To change daily with [employer] and Jenn Rykert. He was reassured no local or systemic signs of illness is suspected today. To continue increased protein intake with nutritional supplementation. To continue glycemic control. He had a previous arterial Doppler scheduled with Dr. Morgan's staff on August 02, 2018 and overall perfusion was confirmed; additional intervention or workup was not recommended. It is also noted that he did have v enous Doppler performed with reflux evaluation. He did not have evidence of deep venous thrombosis or venous insufficiency at that time; the vessels were compressible. I recommend he sustained from smoking and alcohol activities to optimize healing as well. Smoking cessation was encouraged. Prior workup summary: His workup for vasculitis and underlying autoimmune disorder has been completed. A punch biopsy was sent during his last surgical intervention on June 10 and this demonstrated inflammatory changes without malignancy. He had initial screening labs and so far he has a negative RA titer, HL of the 27, KEVIN, anti-CCP, and rheumatoid factor. Several his antibody screenings were not reportable. Hyperbaric oxygen therapy was recommended and it is noted his ejection fraction was most recently 50%. He refuses at this time. . I answered his questions. To return to the wound healing center in 1 week. Due to coronavirus pandemic, reduced in person visits are offered. To call sooner if he has any questions or concerns. He will return next week for debridement. . Quality measures reviewed as the following: Updated today: Medication and allergy reconciliation, pain status and follow-up plan. updated 01-10-2020- he denies falls this past year. Reviewed on 11-29-2019: up-to-date pneumonia vaccination status, he has not up-to-date influenza immunization performed in 09/2019, he does have a living will on file. He is a smoker and smoking cessation was reviewed. He does have elevated blood pressure at or above 120/80 mmHg and also elevated body mass index. For these issues I recommend he follows up with his primary care physician as scheduled. He was counseled on the importance of diet and exercise as well. Quality measures reviewed as the following: Updated today: Medication and allergy reconciliation, pain status and follow-up plan. Reviewed on 11-29-2019: up-to-date pneumonia vaccination status, he has not up-to-date influenza immunization performed in 09/2019, he does have a living will on file. He is a smoker and smoking cessation was reviewed. He does have elevated blood pressure at or above 120/80 mmHg and also elevated body mass index. For these issues I recommend he follows up with his primary care physician as scheduled. He was counseled on the importance of diet and exercise as well.
== END 2020-04-21 23:59 ==
LOC: WC 08:00
PROVIDERS: Family Provider Family Medicine; PCP Family Medicine; Visit Provider Podiatrist
DX: E11.621 Type 2 diabetes mellitus with foot ulcer (principal); E11.622 Type 2 diabetes mellitus with other skin ulcer; E11.42 Type 2 diabetes mellitus with diabetic polyneuropathy; R60.0 Localized edema; L97.822 Non-pressure chronic ulcer of other part of left lower leg with fat layer exposed; L97.412 Non-pressure chronic ulcer of right heel and midfoot with fat layer exposed; F17.210 Nicotine dependence, cigarettes, uncomplicated
CPT/HCPCS: 11042; 11045

== ENCOUNTER 2020-05-15 08:00 | Outpatient (RCR) | payer MEDICARE, SELFPAY ==
[2020-04-22 00:20] VITALS: BP 146/90; PULSE 99; RESP 18; TEMP 36.2
[2020-04-24 08:10] VITALS: BP 135/87; PULSE 108; RESP 20; TEMP 36.1; BMI 32.3
--- NOTE | 2020-04-24 09:18 | PCM.WC.PN ---
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 Status: Chronic Current Visit: Yes Code(s): L97.913 - Non-pressure chronic ulcer of unspecified part of right lower leg with necrosis of muscle (3) Type 2 diabetes mellitus with diabetic polyneuropathy Status: Chronic Current Visit: Yes Code(s): E11.42 - Type 2 diabetes mellitus with diabetic polyneuropathy (4) Ulcer of left lower extremity with fat layer exposed Status: Chronic Current Visit: Yes Code(s): L97.922 - Non-pressure chronic ulcer of unspecified part of left lower leg with fat layer exposed Type of Wound Date of Service: 04/24/20 Chief Complaint: right and left Leg ulcers and right foot ulcers. History of Wound: Mr. Arguello is a 65-year-old male with multiple comorbidities follows up for delayed healing ulcers to the right foot as well as bilateral legs. He denies chills, fever, nausea, or vomiting. He denies odor or redness. He denies pain. He changes the dressings as advised with Adaptic and Aquacel Ag. He has new ulcers from accidentally hitting his toe on a chair while out on his deck this past Wednesday and previous Wednesday evening. His is been changing his dressings and they continue to drain. Progress of Wound: improving bilateral - Physical Exam Vital Signs Temp Pulse Resp BP 97 F L 108 H 20 H 135/87 H 04/24/20 08:10 04/24/20 08:10 04/24/20 08:10 04/24/20 08:10 General: Alert, Oriented x3, Cooperative, No apparent distress HEENT: Atraumatic Extremities: No cyanosis, Capillary Refill Less than 3 Seconds, No Calf Tenderness, Diminished Peripheral Pulses, Edema Skin: Ulcer/ Wound - No purulence, erythema, streaking, odor, infection. The adjacent skin is hairless and atrophic. New skin discontinuity to hallux and fifth toe. The fifth toe has some adjacent skin peeling Wound Measurements and Assessment WC - Nurse 1 - General Ulcer Measurement Start: 04/24/20 08:09 Freq: Status: Active Protocol: Activity Type Activity Date Activity User E-Sign Co-Sign Detail Recorded Client Recorded Date Recorded By Document 04/24/20 08:10 DL [id number] 04/24/20 08:23 DL 04/24/20 08:10 Wound Center Nurse 1 [Ulcer Assessment] #19 R 5th toe -Current Size (cm) - Length 1 -Current Size (cm) - Width 1 -Current Size (cm) - Depth 0.1 -Total Square Cm 1 -Photo Taken No -Exudate Amt Small -Exudate Type Serosanguineous -Wound Margin Distinct, Outline Attached -Granulation Amt Large (67-100%) -Granulation Quality Red -Necrosis Amt None Present (0 %) -Structure Exposed N/A -Texture (Lisa-wound Skin Appearance) Localized Edema -Moisture (Lisa-wound Skin Appearance No Abnormality ) -Color (Lisa-wound Skin Appearance) Erythema -Temperature (Lisa-wound Skin No Abnormality Appearance) (Pt Warm) -Tenderness on Palpation (Lisa-wound No Skin Appearance) -Ulcer Cleansing Wound Cleanser -Foul Odor after Cleansing No -Anesthetic Used 4% Lidocaine Solution #18 R Grt toe lat -Current Size (cm) - Length 0.5 -Current Size (cm) - Width 0.5 -Current Size (cm) - Depth 0.1 -Total Square Cm 0.25 -Photo Taken No -Exudate Amt Small -Exudate Type Serosanguineous -Wound Margin Distinct, Outline Attached -Granulation Amt None Present (0 %) -Necrosis Amt Large (67-100%) -Necrotic Tissue Type Adherent Slough -Structure Exposed N/A -Texture (Lisa-wound Skin Appearance) Scarring -Moisture (Lisa-wound Skin Appearance No Abnormality ) -Color (Lisa-wound Skin Appearance) Erythema, Hemosiderin Staining -Temperature (Lisa-wound Skin No Abnormality Appearance) (Pt Warm) -Tenderness on Palpation (Lisa-wound No Skin Appearance) -Ulcer Cleansing Wound Cleanser -Foul Odor after Cleansing No -Anesthetic Used 4% Lidocaine Solution #11 RIGHT MEDIAL FOOT -Current Size (cm) - Length 0.5 -Current Size (cm) - Width 1.4 -Current Size (cm) - Depth 0.1 -Total Square Cm 0.70 -Photo Taken No -Exudate Amt None Present -Wound Margin Thickened -Granulation Amt Large (67-100%) -Granulation Quality Red -Necrosis Amt Small (1-33%) -Necrotic Tissue Type Adherent Slough -Structure Exposed N/A -Texture (Lisa-wound Skin Appearance) Callus,Scarring -Moisture (Lisa-wound Skin Appearance Dry/Scaly ) -Color (Lisa-wound Skin Appearance) Hemosiderin Staining -Temperature (Lisa-wound Skin No Abnormality Appearance) (Pt Warm) -Tenderness on Palpation (Lisa-wound No Skin Appearance) -Ulcer Cleansing Wound Cleanser -Foul Odor after Cleansing No -Anesthetic Used 4% Lidocaine Solution #6 POSTERIOR LLE -Current Size (cm) - Length 5.4 -Current Size (cm) - Width 0.9 -Current Size (cm) - Depth 0.2 -Total Square Cm 4.86 -Photo Taken No -Exudate Amt Small -Exudate Type Serosanguineous -Wound Margin Thickened -Granulation Amt Medium (34-66%) -Granulation Quality [place] -Necrosis Amt Medium (34-66%) -Necrotic Tissue Type Adherent Slough -Structure Exposed N/A -Texture (Lisa-wound Skin Appearance) Callus,Scarring -Moisture (Lisa-wound Skin Appearance Dry/Scaly ) -Color (Lisa-wound Skin Appearance) Hemosiderin Staining -Temperature (Lisa-wound Skin No Abnormality Appearance) (Pt Warm) -Tenderness on Palpation (Lisa-wound No Skin Appearance) -Ulcer Cleansing Wound Cleanser -Foul Odor after Cleansing No -Anesthetic Used 4% Lidocaine Solution #4 POSTERIOR RLE -Current Size (cm) - Length 4 -Current Size (cm) - Width 1.1 -Current Size (cm) - Depth 0.2 -Total Square Cm 4.4 -Photo Taken No -Exudate Amt Small -Exudate Type Serosanguineous -Wound Margin Thickened -Granulation Amt Medium (34-66%) -Granulation Quality [place],Red -Necrosis Amt Medium (34-66%) -Necrotic Tissue Type Adherent Slough -Structure Exposed N/A -Texture (Lisa-wound Skin Appearance) Callus,Scarring -Moisture (Lisa-wound Skin Appearance Dry/Scaly ) -Color (Lisa-wound Skin Appearance) Hemosiderin Staining -Temperature (Lisa-wound Skin No Abnormality Appearance) (Pt Warm) -Tenderness on Palpation (Lisa-wound No Skin Appearance) -Ulcer Cleansing Wound Cleanser -Foul Odor after Cleansing No -Anesthetic Used 4% Lidocaine Solution Musculoskeletal: No Tenderness to Palpation of Joints or Extremities, Muscle Wasting, - - Toe deformities with dorsal contraction and second ray resection noted Neurological: - - Lack of epicritic sensation Psych/Mental Status: Normal Affect, Appropriate Debridement Note Wound debrided: hallux, 5th toe, medial arch Laterality: Right Wound Grade/Stage: grade 1 Type of Debridement: Excisional debridement Anesthesia Used: 5% Lidocaine Gel Depth: in the subcutaneous layer Percentage of wound debrided: 100 Instrument Used: #15 blade Tissue Removed: fibrous, devitalized subcutaneous, biofilm, slough Severity: Fat Layer Exposed Amount of bleeding with debridement: Mild Bleeding Controlled with: Pressure Patient tolerated procedure well - Additional Wound Wound debrided: posterior leg Laterality: Right Wound Grade/Stage: grade 3 Type of Debridement: Excisional debridement Anesthesia Used: 5% Lidocaine Gel Depth: in the subcutaneous layer Percentage of wound debrided: 100 Instrument Used: #15 blade Tissue Removed: fibrous, devitalized subcutaneous, biofilm, slough Severity: Fat Layer Exposed Amount of bleeding with debridement: Mild Bleeding Controlled with: Pressure Patient tolerated procedure: Patient tolerated procedure well - Additional Wound Wound debrided: posterior leg Laterality: Left Wound Grade/Stage: grade 2 Type of Debridement: Excisional debridement Anesthesia Used: 5% Lidocaine Gel Depth: in the subcutaneous layer Percentage of wound debrided: 100 Instrument Used: #15 blade Tissue Removed: fibrous, devitalized subcutaneous, biofilm, slough Severity: Fat Layer Exposed Amount of bleeding with debridement: Mild Bleeding Controlled with: Pressure Patient tolerated procedure: Patient tolerated procedure well Assessment/Plan Active Problems (Last Updated 09/28/18 @ 12:41 by Geraldine Steele) Non-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) chronic arch, new hallux and 5th toe 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 -Now status post operating room excisional subcutaneous and tendon debridements to bilateral legs and right foot with additional application of advanced wound healing products to bilateral posterior lower legs--no infection and stable today -improvement noted. 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 -previous bilateral leg fasciotomies and debridements and irrigation performed previously now with right and left leg ulcers with fat and tendon layers exposed. -diabetic neuropathy. -malnutrition suspected. 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 -delayed healing. -gait impairment and fall risk. -other comorbidities. -Continued smoking habits Plan: I reviewed and discussed his case today. Debridement was performed to all sites as noted in the nursing panel in a subcutaneous excisional manner. His new ulcer sites are noted. Compliance was reviewed while he is outside he needs to wear a cam walker to avoid these types of injuries. To change daily with [employer] and [employer]. He was reassured no local or systemic signs of illness is suspected today. To continue increased protein intake with nutritional supplementation. To continue glycemic control. He had a previous arterial Doppler scheduled with Dr. Morgan's staff on August 02, 2018 and overall perfusion was confirmed; additional intervention or workup was not recommended. It is also noted that he did have venous Doppler performed with reflux evaluation. He did not have evidence of deep venous thrombosis or venous insufficiency at that time; the vessels were compressible. I recommend he sustained from smoking and alcohol activities to optimize healing as well. Smoking cessation was encouraged. Prior workup summary: His workup for vasculitis and underlying autoimmune disorder has been completed. A punch biopsy was sent during his last surgical intervention on June 10 and this demonstrated inflammatory changes without malignancy. He had initial screening labs and so far he has a negative RA titer, HL of the 27, KEVIN, anti-CCP, and rheumatoid factor. Several his antibody screenings were not reportable. Hyperbaric oxygen therapy was recommended and it is noted his ejection fraction was most recently 50%. He refuses at this time. . I answered his questions. To return to the wound healing center in 1 week. Due to coronavirus pandemic, reduced in person visits are offered. To call sooner if he has any questions or concerns. He will return next week for debridement. . Quality measures reviewed as the following: Updated today: Medication and allergy reconciliation, pain status and follow-up plan. updated 01-10-2020- he denies falls this past year. Reviewed on 11-29-2019: up-to-date pneumonia vaccination status, he has not up-to-date influenza immunization performed in 09/2019, he does have a living will on file. He is a smoker and smoking cessation was reviewed. He does have elevated blood pressure at or above 120/80 mmHg and also elevated body mass index. For these issues I recommend he follows up with his primary care physician as scheduled. He was counseled on the importance of diet and exercise as well. Quality measures reviewed as the following: Updated today: Medication and allergy reconciliation, pain status and follow-up plan. Reviewed on 11-29-2019: up-to-date pneumonia vaccination status, he has not up-to-date influenza immunization performed in 09/2019, he does have a living will on file. He is a smoker and smoking cessation was reviewed. He does have elevated blood pressure at or above 120/80 mmHg and also elevated body mass index. For these issues I recommend he follows up with his primary care physician as scheduled. He was counseled on the importance of diet and exercise as well.
[2020-05-01 08:09] VITALS: BP 134/90; PULSE 81; RESP 18; TEMP 35.6; BMI 32.3
--- NOTE | 2020-05-01 09:07 | PCM.WC.PN ---
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 Status: Chronic Current Visit: Yes Code(s): L97.913 - Non-pressure chronic ulcer of unspecified part of right lower leg with necrosis of muscle (3) Type 2 diabetes mellitus with diabetic polyneuropathy Status: Chronic Current Visit: Yes Code(s): E11.42 - Type 2 diabetes mellitus with diabetic polyneuropathy (4) Ulcer of left lower extremity with fat layer exposed Status: Chronic Current Visit: Yes Code(s): L97.922 - Non-pressure chronic ulcer of unspecified part of left lower leg with fat layer exposed Type of Wound Date of Service: 05/01/20 Chief Complaint: right and left Leg ulcers and right foot ulcers. History of Wound: Mr. Arguello is a 65-year-old male with multiple comorbidities follows up for delayed healing ulcers to the right foot as well as bilateral legs. He denies chills, fever, nausea, or vomiting. He denies odor or redness. He denies pain. He changes the dressings as advised with Adaptic and Aquacel Ag. He denies fifth toe drainage. He reports less pain and stiffness to the feet since he has been taking metanx. Progress of Wound: improving bilateral - Physical Exam Vital Signs Temp Pulse Resp BP 96.0 F L 81 18 134/90 H 05/01/20 08:09 05/01/20 08:09 05/01/20 08:09 05/01/20 08:09 General: Alert, Oriented x3, Cooperative, No apparent distress HEENT: Atraumatic Extremities: No cyanosis, Capillary Refill Less than 3 Seconds, No Calf Tenderness, Diminished Peripheral Pulses, Edema Skin: Ulcer/ Wound - No purulence, erythema, string, odor, infection Wound Measurements and Assessment WC - Nurse 1 - General Ulcer Measurement Start: 04/24/20 08:09 Freq: Status: Active Protocol: Activity Type Activity Date Activity User E-Sign Co-Sign Detail Recorded Client Recorded Date Recorded By Document 05/01/20 08:09 DV [id number] 05/01/20 08:27 DV 05/01/20 08:09 Wound Center Nurse 1 [Ulcer Assessment] #19 R 5th toe -Combined with other wound No -Current Size (cm) - Length 0.7 -Current Size (cm) - Width 0.4 -Current Size (cm) - Depth 0.1 -Total Square Cm 0.28 -Photo Taken No -Epithelialization None Present -Tunneling No -Undermining/Tunneling No -Circular Undermining No -Classification - Thickness Full Thickness without Exposed Support Structure -Exudate Amt None Present -Wound Margin Flat & Intact -Granulation Amt None Present (0 %) -Granulation Quality N/A -Slough/Fibrin Yes -Necrosis Amt Small (1-33%) -Necrotic Tissue Type Adherent Slough -Structure Exposed None/Limited to Skin Breakdown -Texture (Lisa-wound Skin Appearance) Assessed, Scarring -Moisture (Lisa-wound Skin Appearance Assessed, ) Weeping -Color (Lisa-wound Skin Appearance) No Abnormality, Assessed -Temperature (Ilsa-wound Skin No Abnormality Appearance) (Pt Warm) -Ulcer Cleansing Rinsed/ Irrigated with Saline -Foul Odor after Cleansing No -Anesthetic Used 5% Lidocaine Gel #18 R Grt toe lat -Combined with other wound No -Current Size (cm) - Length 1.0 -Current Size (cm) - Width 0.7 -Current Size (cm) - Depth 0.1 -Total Square Cm 0.70 -Photo Taken No -Epithelialization None Present -Tunneling No -Undermining/Tunneling No -Circular Undermining No -Exudate Amt Small -Exudate Type Serous -Wound Margin Flat & Intact -Granulation Amt None Present (0 %) -Granulation Quality N/A -Slough/Fibrin Yes -Necrosis Amt Small (1-33%) -Necrotic Tissue Type Adherent Slough -Structure Exposed None/Limited to Skin Breakdown -Texture (Lisa-wound Skin Appearance) Assessed, Scarring -Moisture (Lisa-wound Skin Appearance Assessed, ) Weeping -Color (Lisa-wound Skin Appearance) No Abnormality, Assessed -Temperature (Lisa-wound Skin No Abnormality Appearance) (Pt Warm) -Tenderness on Palpation (Lisa-wound No Skin Appearance) -Ulcer Cleansing Rinsed/ Irrigated with Saline -Foul Odor after Cleansing No -Anesthetic Used 5% Lidocaine Gel #11 RIGHT MEDIAL FOOT -Combined with other wound No -Current Size (cm) - Length 1.2 -Current Size (cm) - Width 0.6 -Current Size (cm) - Depth 0.1 -Total Square Cm 0.72 -Photo Taken No -Epithelialization Small 1-33% -Tunneling No -Undermining/Tunneling No -Circular Undermining No -Exudate Amt Medium -Exudate Type Serous -Wound Margin Flat & Intact -Granulation Amt Small (1-33%) -Granulation Quality Pale,[place] -Slough/Fibrin Yes -Necrosis Amt Medium (34-66%) -Necrotic Tissue Type Adherent Slough -Structure Exposed None/Limited to Skin Breakdown -Texture (Lisa-wound Skin Appearance) Assessed, Scarring -Moisture (Lisa-wound Skin Appearance Assessed,Dry/ ) Scaly -Color (Lisa-wound Skin Appearance) No Abnormality, Assessed -Temperature (Lisa-wound Skin No Abnormality Appearance) (Pt Warm) -Ulcer Cleansing Rinsed/ Irrigated with Saline -Foul Odor after Cleansing No -Anesthetic Used 5% Lidocaine Gel #6 POSTERIOR LLE -Combined with other wound No -Current Size (cm) - Length 5.0 -Current Size (cm) - Width 1.2 -Current Size (cm) - Depth 0.3 -Total Square Cm 6.00 -Photo Taken No -Epithelialization None Present -Undermining/Tunneling No -Circular Undermining No -Classification - Thickness Full Thickness without Exposed Support Structure -Exudate Amt Medium -Exudate Type Serous -Wound Margin Flat & Intact -Granulation Amt None Present (0 %) -Granulation Quality N/A -Slough/Fibrin No -Necrosis Amt Large (67-100%) -Necrotic Tissue Type Adherent Slough -Structure Exposed None/Limited to Skin Breakdown -Texture (Lisa-wound Skin Appearance) Assessed, Scarring -Moisture (Lisa-wound Skin Appearance Assessed, ) Weeping -Color (Lisa-wound Skin Appearance) No Abnormality, Assessed -Temperature (Lisa-wound Skin No Abnormality Appearance) (Pt Warm) -Tenderness on Palpation (Lisa-wound No Skin Appearance) -Ulcer Cleansing Rinsed/ Irrigated with Saline -Foul Odor after Cleansing No -Anesthetic Used 5% Lidocaine Gel #4 POSTERIOR RLE -Combined with other wound No -Current Size (cm) - Length 4.0 -Current Size (cm) - Width 1.5 -Current Size (cm) - Depth 0.2 -Total Square Cm 6.00 -Photo Taken No -Epithelialization None Present -Tunneling No -Undermining/Tunneling No -Circular Undermining No -Exudate Amt Medium -Exudate Type Serous -Wound Margin Flat & Intact -Granulation Amt None Present (0 %) -Granulation Quality N/A -Slough/Fibrin Yes -Necrosis Amt Medium (34-66%) -Necrotic Tissue Type Adherent Slough -Structure Exposed None/Limited to Skin Breakdown -Texture (Lisa-wound Skin Appearance) Assessed, Scarring -Moisture (Lisa-wound Skin Appearance Assessed, ) Weeping -Color (Lisa-wound Skin Appearance) No Abnormality, Assessed -Temperature (Lisa-wound Skin No Abnormality Appearance) (Pt Warm) -Tenderness on Palpation (Lisa-wound No Skin Appearance) -Ulcer Cleansing Rinsed/ Irrigated with Saline -Foul Odor after Cleansing No -Anesthetic Used 5% Lidocaine Gel [Edema Assessment] -Lower Limb Edema Present No WC - Nurse 2 - General Ulcer CM Notes Start: 04/24/20 08:09 Freq: Status: Active Protocol: Activity Type Activity Date Activity User E-Sign Co-Sign Detail Recorded Client Recorded Date Recorded By Document 05/01/20 08:43 JAMAL [id number] 05/01/20 08:48 JAMAL 05/01/20 08:43 Wound Center Nurse 2 [Procedure/Treatment] #19 R 5th toe -Time 08:43 -Correct Patient No -Correct Side, Site, Position No -Correct Procedure No -Procedure Performed No -Post Debridement Size (cm) - Length 0 -Post Debridement Size (cm) - Width 0 -Post Debridement Size (cm) - Depth 0 -Total Square Cm 0 -Wound/Ulcer Outcome Healed- Epithelialized -Ulcer Cleansing Rinsed/ Irrigated with Saline -Foul Odor after Cleansing No -Bioengineered Tissue No -Bleeding Controlled with Pressure -Offloading No -Treatment Response Procedure Tolerated Well #18 R Grt toe lat -Time 08:44 -Correct Patient Yes -Correct Side, Site, Position Yes -Correct Procedure Yes -Procedure Performed Yes -Type of Procedure Debridement -Clinical Debridement Subcutaneous -Post Debridement Size (cm) - Length 1.0 -Post Debridement Size (cm) - Width 0.8 -Post Debridement Size (cm) - Depth 0.1 -Total Square Cm 0.80 -Wound/Ulcer Outcome Not Healed -Ulcer Cleansing Rinsed/ Irrigated with Saline -Foul Odor after Cleansing No -Bioengineered Tissue No -Bleeding Controlled with Pressure -Offloading No -Treatment Response Procedure Tolerated Well #11 RIGHT MEDIAL FOOT -Time 08:44 -Correct Patient Yes -Correct Side, Site, Position Yes -Correct Procedure Yes -Procedure Performed Yes -Type of Procedure Debridement -Clinical Debridement Subcutaneous -Post Debridement Size (cm) - Length 1.3 -Post Debridement Size (cm) - Width 0.6 -Post Debridement Size (cm) - Depth 0.1 -Total Square Cm 0.78 -Wound/Ulcer Outcome Not Healed -Ulcer Cleansing Rinsed/ Irrigated with Saline -Foul Odor after Cleansing No -Bioengineered Tissue No -Bleeding Controlled with Pressure -Offloading No -Treatment Response Procedure Tolerated Well #6 POSTERIOR LLE -Time 08:45 -Correct Patient Yes -Correct Side, Site, Position Yes -Correct Procedure Yes -Procedure Performed Yes -Type of Procedure Debridement -Clinical Debridement Subcutaneous -Post Debridement Size (cm) - Length 4.1 -Post Debridement Size (cm) - Width 1.5 -Post Debridement Size (cm) - Depth 0.2 -Total Square Cm 6.15 -Wound/Ulcer Outcome Not Healed -Ulcer Cleansing Rinsed/ Irrigated with Saline -Foul Odor after Cleansing No -Bleeding Controlled with Pressure -Offloading No -Treatment Response Procedure Tolerated Well #4 POSTERIOR RLE -Time 08:46 -Correct Patient Yes -Correct Side, Site, Position Yes -Correct Procedure Yes -Procedure Performed Yes -Type of Procedure Debridement -Clinical Debridement Subcutaneous -Post Debridement Size (cm) - Length 5.1 -Post Debridement Size (cm) - Width 1.3 -Post Debridement Size (cm) - Depth 0.3 -Total Square Cm 6.63 -Wound/Ulcer Outcome Not Healed -Ulcer Cleansing Rinsed/ Irrigated with Saline -Foul Odor after Cleansing No -Bioengineered Tissue No -Bleeding Controlled with Pressure -Offloading No -Treatment Response Procedure Tolerated Well [See Physician Procedure note for Specifics] Pain Scale: 0-10 Numeric [Pain] -Is Patient Pain Free? Yes Musculoskeletal: No Tenderness to Palpation of Joints or Extremities, Muscle Wasting Neurological: - - Lack of sensation to light touch Psych/Mental Status: Normal Affect, Appropriate Debridement Note Post-Debridement Measurements/Treatment WC - Nurse 2 - General Ulcer CM Notes Start: 04/24/20 08:09 Freq: Status: Active Protocol: Activity Type Activity Date Activity User E-Sign Co-Sign Detail Recorded Client Recorded Date Recorded By Document 04/24/20 09:32 PL [id number] 04/24/20 09:36 PL Document 05/01/20 08:43 [id number] [id number] 05/01/20 08:48 JF 04/24/20 05/01/20 09:32 08:43 Wound Center Nurse 2 #19 R 5th toe -Time 08:31 08:43 -Correct Patient Yes No -Correct Side, Site, Position Yes No -Correct Procedure Yes No -Procedure Performed Yes No -Type of Procedure Debridement -Clinical Debridement Subcutaneous -Post Debridement Size (cm) - Length 1.1 0 -Post Debridement Size (cm) - Width 1.1 0 -Post Debridement Size (cm) - Depth 0.2 0 -Total Square Cm 1.21 0 -Wound/Ulcer Outcome Not Healed Healed- Epithelialized -Ulcer Cleansing Rinsed/ Rinsed/ Irrigated with Irrigated with Saline Saline -Foul Odor after Cleansing No No -Bioengineered Tissue No -Bleeding Controlled with Pressure Pressure -Offloading No -Treatment Response Procedure Procedure Tolerated Well Tolerated Well #18 R Grt toe lat -Time 08: 08:44 -Correct Patient Yes Yes -Correct Side, Site, Position Yes Yes -Correct Procedure Yes Yes -Procedure Performed Yes Yes -Type of Procedure Debridement Debridement -Clinical Debridement Subcutaneous Subcutaneous -Post Debridement Size (cm) - Length 0.6 1.0 -Post Debridement Size (cm) - Width 0.6 0.8 -Post Debridement Size (cm) - Depth 0.2 0.1 -Total Square Cm 0.36 0.80 -Wound/Ulcer Outcome Not Healed Not Healed -Ulcer Cleansing Rinsed/ Rinsed/ Irrigated with Irrigated with Saline Saline -Foul Odor after Cleansing No No -Bioengineered Tissue No -Bleeding Controlled with Pressure Pressure -Offloading No -Treatment Response Procedure Procedure Tolerated Well Tolerated Well #11 RIGHT MEDIAL FOOT -Time 08: 08:44 -Correct Patient Yes Yes -Correct Side, Site, Position Yes Yes -Correct Procedure Yes Yes -Procedure Performed Yes Yes -Type of Procedure Debridement Debridement -Clinical Debridement Subcutaneous Subcutaneous -Post Debridement Size (cm) - Length 0.5 1.3 -Post Debridement Size (cm) - Width 1.4 0.6 -Post Debridement Size (cm) - Depth 0.2 0.1 -Total Square Cm 0.70 0.78 -Wound/Ulcer Outcome Not Healed Not Healed -Ulcer Cleansing Rinsed/ Rinsed/ Irrigated with Irrigated with Saline Saline -Foul Odor after Cleansing No No -Bioengineered Tissue No -Bleeding Controlled with Pressure Pressure -Offloading No -Treatment Response Procedure Procedure Tolerated Well Tolerated Well #6 POSTERIOR LLE -Time 08: 08:45 -Correct Patient Yes Yes -Correct Side, Site, Position Yes Yes -Correct Procedure Yes Yes -Procedure Performed Yes Yes -Type of Procedure Debridement Debridement -Clinical Debridement Subcutaneous Subcutaneous -Post Debridement Size (cm) - Length 5.5 4.1 -Post Debridement Size (cm) - Width 1.0 1.5 -Post Debridement Size (cm) - Depth 0.3 0.2 -Total Square Cm 5.50 6.15 -Wound/Ulcer Outcome Not Healed Not Healed -Ulcer Cleansing Rinsed/ Rinsed/ Irrigated with Irrigated with Saline Saline -Foul Odor after Cleansing No No -Bleeding Controlled with Pressure Pressure -Offloading No -Treatment Response Procedure Procedure Tolerated Well Tolerated Well #4 POSTERIOR RLE -Time 08: 08:46 -Correct Patient Yes Yes -Correct Side, Site, Position Yes Yes -Correct Procedure Yes Yes -Procedure Performed Yes Yes -Type of Procedure Debridement Debridement -Clinical Debridement Subcutaneous Subcutaneous -Post Debridement Size (cm) - Length 1 5.1 -Post Debridement Size (cm) - Width 1.2 1.3 -Post Debridement Size (cm) - Depth 0.3 0.3 -Total Square Cm 1.2 6.63 -Wound/Ulcer Outcome Not Healed Not Healed -Ulcer Cleansing Rinsed/ Rinsed/ Irrigated with Irrigated with Saline Saline -Foul Odor after Cleansing No No -Bioengineered Tissue No -Bleeding Controlled with Pressure Pressure -Offloading No -Treatment Response Procedure Procedure Tolerated Well Tolerated Well Pain Scale: 0-10 Numeric Is Patient Pain Free? Yes Wound debrided: posterior leg, medial foot Laterality: Right Wound Grade/Stage: grade 3 Type of Debridement: Excisional debridement Anesthesia Used: 5% Lidocaine Gel Depth: in the subcutaneous layer Percentage of wound debrided: 100 Instrument Used: #15 blade Tissue Removed: fibrous, devitalized subcutaneous, biofilm, slough Severity: Fat Layer Exposed Amount of bleeding with debridement: Mild Bleeding Controlled with: Pressure Patient tolerated procedure well - Additional Wound Wound debrided: hallux Laterality: Right Wound Grade/Stage: grade 1 Type of Debridement: Excisional debridement Anesthesia Used: 5% Lidocaine Gel Depth: in the subcutaneous layer Percentage of wound debrided: 100 Instrument Used: #15 blade Tissue Removed: fibrous, devitalized subcutaneous, biofilm, slough Severity: Fat Layer Exposed Amount of bleeding with debridement: Mild Bleeding Controlled with: Pressure Patient tolerated procedure: Patient tolerated procedure well - Additional Wound Wound debrided: posterior leg Laterality: Left - g Wound Grade/Stage: grade 2 Type of Debridement: Excisional debridement Anesthesia Used: 5% Lidocaine Gel Depth: in the subcutaneous layer Percentage of wound debrided: 100 Instrument Used: #15 blade Tissue Removed: fibrous, devitalized subcutaneous, biofilm, slough Severity: Fat Layer Exposed Amount of bleeding with debridement: Mild Bleeding Controlled with: Pressure Patient tolerated procedure: Patient tolerated procedure well Assessment/Plan Active Problems (Last Updated 09/28/18 @ 12:41 by Geraldine Steele) Non-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) chronic arch, new hallux and 5th toe 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 -Now status post operating room excisional subcutaneous and tendon debridements to bilateral legs and right foot with additional application of advanced wound healing products to bilateral posterior lower legs--no infection and stable today -improvement noted. 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 -previous bilateral leg fasciotomies and debridements and irrigation performed previously now with right and left leg ulcers with fat and tendon layers exposed. -diabetic neuropathy. -malnutrition suspected. 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 -delayed healing. -gait impairment and fall risk. -other comorbidities. -Continued smoking habits Plan: I reviewed and discussed his case today. Debridement was performed to all sites as noted in the nursing panel in a subcutaneous excisional manner. His new ulcer sites are noted. Compliance was reviewed while he is outside he needs to wear a cam walker to avoid these types of injuries. To change daily with Aquacel Ag and Adaptic. It is noted he started taking Metanx for neuropathy symptoms and is doing well so far; he was advised to continue. He was reassured no local or systemic signs of illness is suspected today. To continue increased protein intake with nutritional supplementation. To continue glycemic control. He had a previous arterial Doppler scheduled with Dr. Morgan's staff on August 02, 2018 and overall perfusion was confirmed; additional intervention or workup was not recommended. It is also noted that he did have venous Doppler performed with reflux evaluation. He did not have evidence of deep venous thrombosis or venous insufficiency at that time; the vessels were compressible. I recommend he sustained from smoking and alcohol activities to optimize healing as well. Smoking cessation was encouraged. Prior workup summary: His workup for vasculitis and underlying autoimmune disorder has been completed. A punch biopsy was sent during his last surgical intervention on June 10 and this demonstrated inflammatory changes without malignancy. He had initial screening labs and so far he has a negative RA titer, HL of the 27, KEVIN, anti-CCP, and rheumatoid factor. Several his antibody screenings were not reportable. Hyperbaric oxygen therapy was recommended and it is noted his ejection fraction was most recently 50%. He refuses at this time. . I answered his questions. To return to the wound healing center in 1 week. Due to coronavirus pandemic, reduced in person visits are offered. To call sooner if he has any questions or concerns. He will return next week for debridement. . Quality measures reviewed as the following: Updated today: Medication and allergy reconciliation, pain status and follow-up plan. updated 01-10-2020- he denies falls this past year. Reviewed on 11-29-2019: up-to-date pneumonia vaccination status, he has not up-to-date influenza immunization performed in 09/2019, he does have a living will on file. He is a smoker and smoking cessation was reviewed. He does have elevated blood pressure at or above 120/80 mmHg and also elevated body mass index. For these issues I recommend he follows up with his primary care physician as scheduled. He was counseled on the importance of diet and exercise as well. Quality measures reviewed as the following: Updated today: Medication and allergy reconciliation, pain status and follow-up plan. Reviewed on 11-29-2019: up-to-date pneumonia vaccination status, he has not up-to-date influenza immunization performed in 09/2019, he does have a living will on file. He is a smoker and smoking cessation was reviewed. He does have elevated blood pressure at or above 120/80 mmHg and also elevated body mass index. For these issues I recommend he follows up with his primary care physician as scheduled. He was counseled on the importance of diet and exercise as well.
[2020-05-15 08:05] VITALS: BP 127/108; PULSE 109; RESP 20; TEMP 36; BMI 32.3
--- NOTE | 2020-05-15 09:26 | PN.PCM_ITS ---
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 Status: Chronic Current Visit: Yes Code(s): L97.913 - Non-pressure chronic ulcer of unspecified part of right lower leg with necrosis of muscle (3) Type 2 diabetes mellitus with diabetic polyneuropathy Status: Chronic Current Visit: Yes Code(s): E11.42 - Type 2 diabetes mellitus with diabetic polyneuropathy (4) Ulcer of left lower extremity with fat layer exposed Status: Chronic Current Visit: Yes Code(s): L97.922 - Non-pressure chronic ulcer of unspecified part of left lower leg with fat layer exposed Type of Wound Date of Service: 05/15/20 Chief Complaint: right and left Leg ulcers and right foot ulcers. History of Wound: Mr. Arguello is a 65-year-old male with multiple comorbidities follows up for delayed healing ulcers to the right foot as well as bilateral legs. He denies chills, fever, nausea, or vomiting. He denies odor or redness. He denies pain. He changes the dressings as advised with Adaptic and Aquacel Ag. He reports less pain and stiffness to the feet since he has been taking metanx. Progress of Wound: improving bilateral - Physical Exam Vital Signs Temp Pulse Resp BP 96.8 F L 109 H 20 H 127/108 H 05/15/20 08:05 05/15/20 08:05 05/15/20 08:05 05/15/20 08:05 General: Alert, Oriented x3, Cooperative, No apparent distress Extremities: No cyanosis, Capillary Refill Less than 3 Seconds, No Calf Tenderness, Diminished Peripheral Pulses, Edema Skin: Ulcer/ Wound - No purulence, erythema, streaking, odor, infection. Peripheral skin is atrophic and hairless Wound Measurements and Assessment WC - Nurse 1 - General Ulcer Measurement Start: 04/24/20 08:09 Freq: Status: Active Protocol: Activity Type Activity Date Activity User E-Sign Co-Sign Detail Recorded Client Recorded Date Recorded By Document 05/15/20 08:05 TERE [id number] 05/15/20 08:19 DL 05/15/20 08:05 Wound Center Nurse 1 [Ulcer Assessment] #18 R Grt toe lat -Current Size (cm) - Length 0.5 -Current Size (cm) - Width 0.3 -Current Size (cm) - Depth 0.1 -Total Square Cm 0.15 -Photo Taken No -Exudate Amt None Present -Wound Margin Thickened -Granulation Amt None Present (0 %) -Necrosis Amt Small (1-33%) -Necrotic Tissue Type Eschar -Structure Exposed N/A -Texture (Lisa-wound Skin Appearance) Scarring -Moisture (Lisa-wound Skin Appearance No Abnormality ) -Color (Lisa-wound Skin Appearance) No Abnormality -Temperature (Lisa-wound Skin No Abnormality Appearance) (Pt Warm) -Tenderness on Palpation (Lisa-wound No Skin Appearance) -Ulcer Cleansing Wound Cleanser -Foul Odor after Cleansing No -Anesthetic Used 4% Lidocaine Solution #11 RIGHT MEDIAL FOOT -Current Size (cm) - Length 1 -Current Size (cm) - Width 0.4 -Current Size (cm) - Depth 0.1 -Total Square Cm 0.4 -Photo Taken No -Exudate Amt Small -Exudate Type Serosanguineous -Wound Margin Thickened -Granulation Amt Large (67-100%) -Granulation Quality [place] -Necrosis Amt Small (1-33%) -Necrotic Tissue Type Adherent Slough -Structure Exposed N/A -Texture (Lisa-wound Skin Appearance) Scarring -Moisture (Lisa-wound Skin Appearance Dry/Scaly ) -Color (Lisa-wound Skin Appearance) No Abnormality -Temperature (Lisa-wound Skin No Abnormality Appearance) (Pt Warm) -Tenderness on Palpation (Lisa-wound No Skin Appearance) -Ulcer Cleansing Wound Cleanser -Foul Odor after Cleansing No -Anesthetic Used 4% Lidocaine Solution #6 POSTERIOR LLE -Current Size (cm) - Length 4.5 -Current Size (cm) - Width 1.2 -Current Size (cm) - Depth 0.4 -Total Square Cm 5.40 -Photo Taken No -Exudate Amt Small -Exudate Type Serosanguineous -Wound Margin Thickened -Granulation Amt Medium (34-66%) -Granulation Quality [place],Red -Necrosis Amt Medium (34-66%) -Necrotic Tissue Type Adherent Slough -Structure Exposed N/A -Texture (Lisa-wound Skin Appearance) Scarring -Moisture (Lisa-wound Skin Appearance Dry/Scaly ) -Color (Lisa-wound Skin Appearance) No Abnormality -Temperature (Lisa-wound Skin No Abnormality Appearance) (Pt Warm) -Tenderness on Palpation (Lisa-wound No Skin Appearance) -Ulcer Cleansing Wound Cleanser -Foul Odor after Cleansing No -Anesthetic Used 4% Lidocaine Solution #4 POSTERIOR RLE -Current Size (cm) - Length 11.6 -Current Size (cm) - Width 1 -Current Size (cm) - Depth 0.4 -Total Square Cm 11.6 -Photo Taken No -Exudate Amt Small -Exudate Type Serosanguineous -Wound Margin Thickened -Granulation Amt Medium (34-66%) -Granulation Quality [place] -Necrosis Amt Medium (34-66%) -Necrotic Tissue Type Adherent Slough -Structure Exposed N/A -Texture (Lisa-wound Skin Appearance) Scarring -Moisture (Lisa-wound Skin Appearance Dry/Scaly ) -Color (Lisa-wound Skin Appearance) No Abnormality -Temperature (Lisa-wound Skin No Abnormality Appearance) (Pt Warm) -Tenderness on Palpation (Lisa-wound No Skin Appearance) -Ulcer Cleansing Wound Cleanser -Foul Odor after Cleansing No -Anesthetic Used 4% Lidocaine Solution [Edema Assessment] -Right Calf (cm) 38 -Right Ankle (cm) 22 -Left Calf (cm) 37 -Left Ankle (cm) 21.4 WC - Nurse 2 - General Ulcer CM Notes Start: 04/24/20 08:09 Freq: Status: Active Protocol: Activity Type Activity Date Activity User E-Sign Co-Sign Detail Recorded Client Recorded Date Recorded By Document 05/15/20 08:35 JAMAL [id number] 05/15/20 08:38 JAMAL 05/15/20 08:35 Wound Center Nurse 2 [Procedure/Treatment] #18 R Grt toe lat -Time 08:36 -Correct Patient Yes -Correct Side, Site, Position Yes -Correct Procedure Yes -Procedure Performed Yes -Type of Procedure Debridement -Clinical Debridement Subcutaneous -Post Debridement Size (cm) - Length 0.5 -Post Debridement Size (cm) - Width 0.4 -Post Debridement Size (cm) - Depth 0.1 -Total Square Cm 0.20 -Wound/Ulcer Outcome Not Healed -Ulcer Cleansing Rinsed/ Irrigated with Saline -Foul Odor after Cleansing No -Bioengineered Tissue No -Bleeding Controlled with Pressure -Offloading No -Treatment Response Procedure Tolerated Well #11 RIGHT MEDIAL FOOT -Time 08:37 -Correct Patient Yes -Correct Side, Site, Position Yes -Correct Procedure Yes -Procedure Performed Yes -Type of Procedure Debridement -Clinical Debridement Subcutaneous -Post Debridement Size (cm) - Length 1 -Post Debridement Size (cm) - Width 0.5 -Post Debridement Size (cm) - Depth 0.1 -Total Square Cm 0.5 -Wound/Ulcer Outcome Not Healed -Ulcer Cleansing Rinsed/ Irrigated with Saline -Foul Odor after Cleansing No -Bioengineered Tissue No -Bleeding Controlled with Pressure -Offloading No -Treatment Response Procedure Tolerated Well #6 POSTERIOR LLE -Time 08:37 -Correct Patient Yes -Correct Side, Site, Position Yes -Correct Procedure Yes -Procedure Performed Yes -Type of Procedure Debridement -Clinical Debridement Subcutaneous -Post Debridement Size (cm) - Length 4.5 -Post Debridement Size (cm) - Width 1.3 -Post Debridement Size (cm) - Depth 0.4 -Total Square Cm 5.85 -Wound/Ulcer Outcome Not Healed -Ulcer Cleansing Rinsed/ Irrigated with Saline -Foul Odor after Cleansing No -Bioengineered Tissue No -Bleeding Controlled with Pressure -Offloading No -Treatment Response Procedure Tolerated Well #4 POSTERIOR RLE -Time 08:37 -Correct Patient Yes -Correct Side, Site, Position Yes -Correct Procedure Yes -Procedure Performed Yes -Type of Procedure Debridement -Clinical Debridement Subcutaneous -Post Debridement Size (cm) - Length 11.6 -Post Debridement Size (cm) - Width 1.1 -Post Debridement Size (cm) - Depth 0.4 -Total Square Cm 12.76 -Wound/Ulcer Outcome Not Healed -Ulcer Cleansing Rinsed/ Irrigated with Saline -Foul Odor after Cleansing No -Bioengineered Tissue No -Bleeding Controlled with Pressure -Offloading No -Treatment Response Procedure Tolerated Well [See Physician Procedure note for Specifics] Pain Scale: 0-10 Numeric [Pain] -Is Patient Pain Free? Yes Musculoskeletal: No Tenderness to Palpation of Joints or Extremities, Muscle Wasting Neurological: - - Lack of epicritic sensation light touch Psych/Mental Status: Normal Affect, Appropriate Debridement Note Post-Debridement Measurements/Treatment WC - Nurse 2 - General Ulcer CM Notes Start: 04/24/20 08:09 Freq: Status: Active Protocol: Activity Type Activity Date Activity User E-Sign Co-Sign Detail Recorded Client Recorded Date Recorded By Document 04/24/20 09:32 PL [id number] 04/24/20 09:36 PL Document 05/01/20 08:43 JF [id number] 05/01/20 08:48 JF Document 05/15/20 08:35 JF [id number] 05/15/20 08:38 JF 04/24/20 05/01/20 05/15/20 09:32 08:43 08:35 Wound Center Nurse 2 #19 R 5th toe -Time 08: 08:43 -Correct Patient Yes No -Correct Side, Site, Position Yes No -Correct Procedure Yes No -Procedure Performed Yes No -Type of Procedure Debridement -Clinical Debridement Subcutaneous -Post Debridement Size (cm) - Length 1.1 0 -Post Debridement Size (cm) - Width 1.1 0 -Post Debridement Size (cm) - Depth 0.2 0 -Total Square Cm 1.21 0 -Wound/Ulcer Outcome Not Healed Healed- Epithelialized -Ulcer Cleansing Rinsed/ Rinsed/ Irrigated with Irrigated with Saline Saline -Foul Odor after Cleansing No No -Bioengineered Tissue No -Bleeding Controlled with Pressure Pressure -Offloading No -Treatment Response Procedure Procedure Tolerated Well Tolerated Well #18 R Grt toe lat -Time 08: 08:44 08:36 -Correct Patient Yes Yes Yes -Correct Side, Site, Position Yes Yes Yes -Correct Procedure Yes Yes Yes -Procedure Performed Yes Yes Yes -Type of Procedure Debridement Debridement Debridement -Clinical Debridement Subcutaneous Subcutaneous Subcutaneous -Post Debridement Size (cm) - Length 0.6 1.0 0.5 -Post Debridement Size (cm) - Width 0.6 0.8 0.4 -Post Debridement Size (cm) - Depth 0.2 0.1 0.1 -Total Square Cm 0.36 0.80 0.20 -Wound/Ulcer Outcome Not Healed Not Healed Not Healed -Ulcer Cleansing Rinsed/ Rinsed/ Rinsed/ Irrigated with Irrigated with Irrigated with Saline Saline Saline -Foul Odor after Cleansing No No No -Bioengineered Tissue No No -Bleeding Controlled with Pressure Pressure Pressure -Offloading No No -Treatment Response Procedure Procedure Procedure Tolerated Well Tolerated Well Tolerated Well #11 RIGHT MEDIAL FOOT -Time 08: 08:44 08:37 -Correct Patient Yes Yes Yes -Correct Side, Site, Position Yes Yes Yes -Correct Procedure Yes Yes Yes -Procedure Performed Yes Yes Yes -Type of Procedure Debridement Debridement Debridement -Clinical Debridement Subcutaneous Subcutaneous Subcutaneous -Post Debridement Size (cm) - Length 0.5 1.3 1 -Post Debridement Size (cm) - Width 1.4 0.6 0.5 -Post Debridement Size (cm) - Depth 0.2 0.1 0.1 -Total Square Cm 0.70 0.78 0.5 -Wound/Ulcer Outcome Not Healed Not Healed Not Healed -Ulcer Cleansing Rinsed/ Rinsed/ Rinsed/ Irrigated with Irrigated with Irrigated with Saline Saline Saline -Foul Odor after Cleansing No No No -Bioengineered Tissue No No -Bleeding Controlled with Pressure Pressure Pressure -Offloading No No -Treatment Response Procedure Procedure Procedure Tolerated Well Tolerated Well Tolerated Well #6 POSTERIOR LLE -Time 08:31 08:45 08:37 -Correct Patient Yes Yes Yes -Correct Side, Site, Position Yes Yes Yes -Correct Procedure Yes Yes Yes -Procedure Performed Yes Yes Yes -Type of Procedure Debridement Debridement Debridement -Clinical Debridement Subcutaneous Subcutaneous Subcutaneous -Post Debridement Size (cm) - Length 5.5 4.1 4.5 -Post Debridement Size (cm) - Width 1.0 1.5 1.3 -Post Debridement Size (cm) - Depth 0.3 0.2 0.4 -Total Square Cm 5.50 6.15 5.85 -Wound/Ulcer Outcome Not Healed Not Healed Not Healed -Ulcer Cleansing Rinsed/ Rinsed/ Rinsed/ Irrigated with Irrigated with Irrigated with Saline Saline Saline -Foul Odor after Cleansing No No No -Bioengineered Tissue No -Bleeding Controlled with Pressure Pressure Pressure -Offloading No No -Treatment Response Procedure Procedure Procedure Tolerated Well Tolerated Well Tolerated Well #4 POSTERIOR RLE -Time 08:31 08:46 08:37 -Correct Patient Yes Yes Yes -Correct Side, Site, Position Yes Yes Yes -Correct Procedure Yes Yes Yes -Procedure Performed Yes Yes Yes -Type of Procedure Debridement Debridement Debridement -Clinical Debridement Subcutaneous Subcutaneous Subcutaneous -Post Debridement Size (cm) - Length 1 5.1 11.6 -Post Debridement Size (cm) - Width 1.2 1.3 1.1 -Post Debridement Size (cm) - Depth 0.3 0.3 0.4 -Total Square Cm 1.2 6.63 12.76 -Wound/Ulcer Outcome Not Healed Not Healed Not Healed -Ulcer Cleansing Rinsed/ Rinsed/ Rinsed/ Irrigated with Irrigated with Irrigated with Saline Saline Saline -Foul Odor after Cleansing No No No -Bioengineered Tissue No No -Bleeding Controlled with Pressure Pressure Pressure -Offloading No No -Treatment Response Procedure Procedure Procedure Tolerated Well Tolerated Well Tolerated Well Pain Scale: 0-10 Numeric Is Patient Pain Free? Yes Yes Wound debrided: posterior leg and medial foot Laterality: Right - grade 3 Wound Grade/Stage: grade 3 Type of Debridement: Excisional debridement Anesthesia Used: 5% Lidocaine Gel Depth: in the subcutaneous layer Percentage of wound debrided: 100 Instrument Used: #15 blade Tissue Removed: fibrous, devitalized subcutaneous, biofilm, slough Severity: Fat Layer Exposed Amount of bleeding with debridement: Mild Bleeding Controlled with: Pressure Patient tolerated procedure well - Additional Wound Wound debrided: hallux Laterality: Right Wound Grade/Stage: grade 1 Type of Debridement: Excisional debridement Anesthesia Used: 5% Lidocaine Gel Depth: in the subcutaneous layer Percentage of wound debrided: 100 Instrument Used: #15 blade Tissue Removed: fibrous, devitalized subcutaneous, biofilm, slough Severity: Fat Layer Exposed Amount of bleeding with debridement: Mild Bleeding Controlled with: Pressure Patient tolerated procedure: Patient tolerated procedure well - Additional Wound Wound debrided: posterior leg Laterality: Left - grade 2 Wound Grade/Stage: grade 2 Type of Debridement: Excisional debridement Anesthesia Used: 5% Lidocaine Gel Depth: in the subcutaneous layer Percentage of wound debrided: 100 Instrument Used: #15 blade Tissue Removed: fibrous, devitalized subcutaneous, biofilm, slough Severity: Fat Layer Exposed Amount of bleeding with debridement: Mild Bleeding Controlled with: Pressure Patient tolerated procedure: Patient tolerated procedure well Assessment/Plan Active Problems (Last Updated 09/28/18 @ 12:41 by Geraldine Steele) Non-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) chronic arch, new hallux and 5th toe 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) Type 2 diabetes mellitus with diabetic polyneuropathy (Chronic) Ulcer of left lower extremity with fat layer exposed (Chronic) Assessment: -Hallux ulcer with fat layer exposed. -Prior status post operating room excisional subcutaneous and tendon debridements to bilateral legs and right foot with additional application of advanced wound healing products to bilateral posterior lower legs--no infection and stable today -improvement noted. 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 -previous bilateral leg fasciotomies and debridements and irrigation performed previously now with right and left leg ulcers with fat and tendon layers exposed. -diabetic neuropathy. -malnutrition suspected. 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 -delayed healing. -gait impairment and fall risk. -other comorbidities. -Continued smoking habits Plan: I reviewed and discussed his case today. Debridement was performed to all sites as noted in the nursing panel in a subcutaneous excisional manner. His new ulcer sites are noted. Compliance was reviewed while he is outside he needs to wear a cam walker to avoid these types of injuries. To change daily with Aquacel Ag and Adaptic. It is noted he started taking Metanx for neuropathy symptoms and is doing well so far; he was advised to continue. He was reassured no local or systemic signs of illness is suspected today. To continue increased protein intake with nutritional supplementation. To continue glycemic control. He had a previous arterial Doppler scheduled with Dr. Morgan's staff on August 02, 2018 and overall perfusion was confirmed; additional intervention or workup was not recommended. It is also noted that he did have venous Doppler performed with reflux evaluation. He did not have evidence of deep venous thrombosis or venous insufficiency at that time; the vessels were compressible. I recommend he sustained from smoking and alcohol activities to optimize healing as well. Smoking cessation was encouraged. Prior workup summary: His workup for vasculitis and underlying autoimmune disorder has been completed. A punch biopsy was sent during his last surgical intervention on June 10 and this demonstrated inflammatory changes without malignancy. He had initial screening labs and so far he has a negative RA titer, HL of the 27, KEVIN, anti-CCP, and rheumatoid factor. Several his antibody screenings were not reportable. Hyperbaric oxygen therapy was recommended and it is noted his ejection fraction was most recently 50%. He refuses at this time. . I answered his questions. To return to the wound healing center in 2 week. Due to coronavirus pandemic, reduced in person visits are offered. To call sooner if he has any questions or concerns. He will return next week for debridement. . Quality measures reviewed as the following: Updated today: Medication and allergy reconciliation, pain status and follow-up plan. updated 01-10-2020- he denies falls this past year. Reviewed on 11-29-2019: up-to-date pneumonia vaccination status, he has not up-to-date influenza immunization performed in 09/2019, he does have a living will on file. He is a smoker and smoking cessation was reviewed. He does have elevated blood pressure at or above 120/80 mmHg and also elevated body mass index. For these issues I recommend he follows up with his primary care physician as scheduled. He was co unseled on the importance of diet and exercise as well. Quality measures reviewed as the following: Updated today: Medication and allergy reconciliation, pain status and follow-up plan. Reviewed on 11-29-2019: up-to-date pneumonia vaccination status, he has not up-to-date influenza immunization performed in 09/2019, he does have a living will on file. He is a smoker and smoking cessation was reviewed. He does have elevated blood pressure at or above 120/80 mmHg and also elevated body mass index. For these issues I recommend he follows up with his primary care physician as scheduled. He was counseled on the importance of diet and exercise as well.
== END 2020-05-21 23:59 ==
LOC: WC 08:00
PROVIDERS: Family Provider Family Medicine; PCP Family Medicine; Visit Provider Podiatrist
DX: E11.621 Type 2 diabetes mellitus with foot ulcer (principal); E11.622 Type 2 diabetes mellitus with other skin ulcer; L97.913 Non-pressure chronic ulcer of unspecified part of right lower leg with necrosis of muscle; L97.512 Non-pressure chronic ulcer of other part of right foot with fat layer exposed; L97.412 Non-pressure chronic ulcer of right heel and midfoot with fat layer exposed; L97.922 Non-pressure chronic ulcer of unspecified part of left lower leg with fat layer exposed; E11.42 Type 2 diabetes mellitus with diabetic polyneuropathy; R03.0 Elevated blood-pressure reading, without diagnosis of hypertension; Z79.01 Long term (current) use of anticoagulants; Z79.82 Long term (current) use of aspirin; Z79.4 Long term (current) use of insulin; Z79.899 Other long term (current) drug therapy
CPT/HCPCS: 11042

== ENCOUNTER 2020-06-12 08:00 | Outpatient (RCR) | payer MEDICARE, SELFPAY ==
[2020-05-22 00:21] VITALS: BP 127/108; PULSE 109; RESP 20; TEMP 36
[2020-05-29 08:15] VITALS: BP 123/84; PULSE 89; RESP 18; TEMP 36.6; BMI 32.3
--- NOTE | 2020-05-29 09:19 | PCM.WC.PN ---
(1) Ulcer of right foot with fat layer exposed Status: Chronic Current Visit: Yes Code(s): L97.512 - Non-pressure chronic ulcer of other part of right foot with fat layer exposed (2) Ulcer of right lower extremity with fat layer exposed Status: Chronic Current Visit: Yes Code(s): L97.912 - Non-pressure chronic ulcer of unspecified part of right lower leg with fat layer exposed (3) Type 2 diabetes mellitus with diabetic polyneuropathy Status: Chronic Current Visit: Yes Code(s): E11.42 - Type 2 diabetes mellitus with diabetic polyneuropathy (4) Vasculitis Status: Chronic Current Visit: Yes Code(s): I77.6 - Arteritis, unspecified (5) Ulcer of left lower extremity with fat layer exposed Status: Chronic Current Visit: Yes Code(s): L97.922 - Non-pressure chronic ulcer of unspecified part of left lower leg with fat layer exposed Type of Wound Date of Service: 05/29/20 Chief Complaint: right and left Leg ulcers and right foot ulcer History of Wound: Mr. Arguello is a 65-year-old male with multiple comorbidities follows up for delayed healing ulcers to the right foot as well as bilateral legs. He denies chills, fever, nausea, or vomiting. He denies odor or redness. He denies pain. He changes the dressings as advised with Adaptic and Aquacel Ag. He reports less pain and stiffness to the feet since he has been taking metanx.He denies great toe drainage. He continues to smoke without reduction. Progress of Wound: improving bilateral. Healed hallux ulcer right - Physical Exam Vital Signs Temp Pulse Resp BP 97.8 F 89 18 123/84 H 05/29/20 08:15 05/29/20 08:15 05/29/20 08:15 05/29/20 08:15 General: Alert, Oriented x3, Cooperative, No apparent distress HEENT: Atraumatic Extremities: No cyanosis, Capillary Refill Less than 3 Seconds, No Calf Tenderness, Diminished Peripheral Pulses, Edema - Very minimal Skin: Ulcer/ Wound - No purulence, erythema, streaking, odor, infection. Full epithelialization noted to the right heel. The ulcer beds are granular and the adjacent skin is hairless and atrophic Wound Measurements and Assessment WC - Nurse 1 - General Ulcer Measurement Start: 05/29/20 08:15 Freq: Status: Active Protocol: Activity Type Activity Date Activity User E-Sign Co-Sign Detail Recorded Client Recorded Date Recorded By Document 05/29/20 08:15 PL [id number] 05/29/20 08:23 PL 05/29/20 08:15 Wound Center Nurse 1 [Ulcer Assessment] #18 R Grt toe lat -Combined with other wound No -Current Size (cm) - Length 0 -Current Size (cm) - Width 0 -Current Size (cm) - Depth 0 -Total Square Cm 0 -Photo Taken No -Epithelialization None Present -Exudate Amt None Present -Slough/Fibrin Yes -Necrosis Amt Large (67-100%) #11 RIGHT MEDIAL FOOT -Combined with other wound No -Current Size (cm) - Length 1.7 -Current Size (cm) - Width 0.5 -Current Size (cm) - Depth 0.3 -Total Square Cm 0.85 -Photo Taken No -Epithelialization None Present -Exudate Amt Small -Exudate Type Serosanguineous -Granulation Amt Small (1-33%) -Granulation Quality Pale -Slough/Fibrin Yes -Necrosis Amt Large (67-100%) -Necrotic Tissue Type Adherent Slough #6 POSTERIOR LLE -Combined with other wound No -Current Size (cm) - Length 6 -Current Size (cm) - Width 1.5 -Current Size (cm) - Depth 0.2 -Total Square Cm 9.0 #4 POSTERIOR RLE -Combined with other wound No -Current Size (cm) - Length 3.5 -Current Size (cm) - Width 0.8 -Current Size (cm) - Depth 0.3 -Total Square Cm 2.80 WC - Nurse 2 - General Ulcer CM Notes Start: 05/29/20 08:15 Freq: Status: Active Protocol: Activity Type Activity Date Activity User E-Sign Co-Sign Detail Recorded Client Recorded Date Recorded By Document 05/29/20 09:07 PL [id number] 05/29/20 09:10 PL 05/29/20 09:07 Wound Center Nurse 2 [Procedure/Treatment] #11 RIGHT MEDIAL FOOT -Time 08:35 -Correct Patient Yes -Correct Side, Site, Position Yes -Correct Procedure Yes -Procedure Performed Yes -Type of Procedure Debridement -Clinical Debridement Subcutaneous -Post Debridement Size (cm) - Length 1.8 -Post Debridement Size (cm) - Width 0.6 -Post Debridement Size (cm) - Depth 0.4 -Total Square Cm 1.08 -Wound/Ulcer Outcome Not Healed -Ulcer Cleansing Rinsed/ Irrigated with Saline -Foul Odor after Cleansing No -Bleeding Controlled with Pressure -Treatment Response Procedure Tolerated Well #6 POSTERIOR LLE -Time 08:35 -Correct Patient Yes -Correct Side, Site, Position Yes -Type of Procedure Debridement -Clinical Debridement Subcutaneous -Post Debridement Size (cm) - Length 6.1 -Post Debridement Size (cm) - Width 1.6 -Post Debridement Size (cm) - Depth 0.3 -Total Square Cm 9.76 -Wound/Ulcer Outcome Not Healed -Ulcer Cleansing Rinsed/ Irrigated with Saline -Foul Odor after Cleansing No -Bleeding Controlled with Pressure -Treatment Response Procedure Tolerated Well #4 POSTERIOR RLE -Time 08:35 -Correct Patient Yes -Correct Side, Site, Position Yes -Correct Procedure Yes -Procedure Performed Yes -Type of Procedure Debridement -Clinical Debridement Subcutaneous -Post Debridement Size (cm) - Length 3.6 -Post Debridement Size (cm) - Width 0.9 -Post Debridement Size (cm) - Depth 0.4 -Total Square Cm 3.24 -Wound/Ulcer Outcome Not Healed -Ulcer Cleansing Rinsed/ Irrigated with Saline -Foul Odor after Cleansing No -Bleeding Controlled with Pressure -Treatment Response Procedure Tolerated Well [See Physician Procedure note for Specifics] Pain Scale: 0-10 Numeric [Pain] -Is Patient Pain Free? Yes Musculoskeletal: No Tenderness to Palpation of Joints or Extremities, Muscle Wasting Neurological: - - Lack of normal epicritic sensation Psych/Mental Status: Normal Affect, Appropriate Debridement Note Post-Debridement Measurements/Treatment WC - Nurse 2 - General Ulcer CM Notes Start: 05/29/20 08:15 Freq: Status: Active Protocol: Activity Type Activity Date Activity User E-Sign Co-Sign Detail Recorded Client Recorded Date Recorded By Document 05/29/20 09:07 BJ [id number] 05/29/20 09:10 BJ 05/29/20 09:07 Wound Center Nurse 2 #11 RIGHT MEDIAL FOOT -Time 08:35 -Correct Patient Yes -Correct Side, Site, Position Yes -Correct Procedure Yes -Procedure Performed Yes -Type of Procedure Debridement -Clinical Debridement Subcutaneous -Post Debridement Size (cm) - Length 1.8 -Post Debridement Size (cm) - Width 0.6 -Post Debridement Size (cm) - Depth 0.4 -Total Square Cm 1.08 -Wound/Ulcer Outcome Not Healed -Ulcer Cleansing Rinsed/ Irrigated with Saline -Foul Odor after Cleansing No -Bleeding Controlled with Pressure -Treatment Response Procedure Tolerated Well #6 POSTERIOR LLE -Time 08:35 -Correct Patient Yes -Correct Side, Site, Position Yes -Type of Procedure Debridement -Clinical Debridement Subcutaneous -Post Debridement Size (cm) - Length 6.1 -Post Debridement Size (cm) - Width 1.6 -Post Debridement Size (cm) - Depth 0.3 -Total Square Cm 9.76 -Wound/Ulcer Outcome Not Healed -Ulcer Cleansing Rinsed/ Irrigated with Saline -Foul Odor after Cleansing No -Bleeding Controlled with Pressure -Treatment Response Procedure Tolerated Well #4 POSTERIOR RLE -Time 08:35 -Correct Patient Yes -Correct Side, Site, Position Yes -Correct Procedure Yes -Procedure Performed Yes -Type of Procedure Debridement -Clinical Debridement Subcutaneous -Post Debridement Size (cm) - Length 3.6 -Post Debridement Size (cm) - Width 0.9 -Post Debridement Size (cm) - Depth 0.4 -Total Square Cm 3.24 -Wound/Ulcer Outcome Not Healed -Ulcer Cleansing Rinsed/ Irrigated with Saline -Foul Odor after Cleansing No -Bleeding Controlled with Pressure -Treatment Response Procedure Tolerated Well Pain Scale: 0-10 Numeric Is Patient Pain Free? Yes Wound debrided: medial foot, posterior leg Laterality: Right Wound Grade/Stage: grade 3 Type of Debridement: Excisional debridement Anesthesia Used: 5% Lidocaine Gel Depth: in the subcutaneous layer Percentage of wound debrided: 100 Instrument Used: #15 blade Tissue Removed: fibrous, devitalized subcutaneous, biofilm, slough Severity: Fat Layer Exposed Amount of bleeding with debridement: Mild Bleeding Controlled with: Pressure, Compression and gauze - Additional Wound Wound debrided: posterior leg Laterality: Left Wound Grade/Stage: grade 2 Type of Debridement: Excisional debridement Anesthesia Used: 5% Lidocaine Gel Depth: in the subcutaneous layer Percentage of wound debrided: 100 Instrument Used: #15 blade Tissue Removed: fibrous, devitalized subcutaneous, biofilm, slough Severity: Fat Layer Exposed Amount of bleeding with debridement: Mild Bleeding Controlled with: Pressure Patient tolerated procedure: Patient tolerated procedure well Assessment/Plan Active Problems (Last Updated 09/28/18 @ 12:41 by Geraldine Steele) Ulcer of right foot with fat layer exposed (Chronic) Ulcer of right lower extremity with fat layer exposed (Chronic) Type 2 diabetes mellitus with diabetic polyneuropathy (Chronic) Vasculitis (Chronic) Ulcer of left lower extremity with fat layer exposed (Chronic) Assessment: -Hallux ulcer healed. -Prior status post operating room excisional subcutaneous and tendon debridements to bilateral legs and right foot with additional application of advanced wound healing products to bilateral posterior lower legs--no infection and stable today -improvement noted. 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 -previous bilateral leg fasciotomies and debridements and irrigation performed previously now with right and left leg ulcers with fat and tendon layers exposed. -diabetic neuropathy. -malnutrition suspected. 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 -delayed healing. -gait impairment and fall risk. -other comorbidities. -Continued smoking habits Plan: I reviewed and discussed his case today. Debridement was performed to all sites as noted in the nursing panel in a subcutaneous excisional manner. His new ulcer sites are noted. Compliance was reviewed while he is outside he needs to wear a cam walker to avoid these types of injuries. He will bring this to his follow-up visit to see if additional adjustment is possible. To change daily with Aquacel Ag and Adaptic. It is noted he started taking Metanx for neuropathy symptoms and is doing well so far; he was advised to continue. He was reassured no local or systemic signs of illness is suspected today. To continue increased protein intake with nutritional supplementation. To continue glycemic control. He had a previous arterial Doppler scheduled with Dr. Morgan's staff on August 02, 2018 and overall perfusion was confirmed; additional intervention or workup was not recommended. It is also noted that he did have venous Doppler performed with reflux evaluation. He did not have evidence of deep venous thrombosis or venous insufficiency at that time; the vessels were compressible. I recommend he sustained from smoking and alcohol activities to optimize healing as well. Smoking cessation was encouraged. Prior workup summary: His workup for vasculitis and underlying autoimmune disorder has been completed. A punch biopsy was sent during his last surgical intervention on June 10 and this demonstrated inflammatory changes without malignancy. He had initial screening labs and so far he has a negative RA titer, HL of the 27, KEVIN, anti-CCP, and rheumatoid factor. Several his antibody screenings were not reportable. Hyperbaric oxygen therapy was recommended and it is noted his ejection fraction was most recently 50%. He refuses at this time. . I answered his questions. To return to the wound healing center in 2 week. Due to coronavirus pandemic, reduced in person visits are offered. To call sooner if he has any questions or concerns. He will return next week for debridement. . Quality measures reviewed as the following: Updated today: Medication and allergy reconciliation, pain status and follow-up plan. updated 01-10-2020- he denies falls this past year. Reviewed on 11-29-2019: up-to-date pneumonia vaccination status, he has not up-to-date influenza immunization performed in 09/2019, he does have a living will on file. He is a smoker and smoking cessation was reviewed. He does have elevated blood pressure at or above 120/80 mmHg and also elevated body mass index. For these issues I recommend he follows up with his primary care physician as scheduled. He was counseled on the importance of diet and exercise as well. Quality measures reviewed as the following: Updated today: Medication and allergy reconciliation, pain status and follow-up plan. Reviewed on 11-29-2019: up-to-date pneumonia vaccination status, he has not up-to-date influenza immunization performed in 09/2019, he does have a living will on file. He is a smoker and smoking cessation was reviewed. He does have elevated blood pressure at or above 120/80 mmHg and also elevated body mass index. For these issues I recommend he follows up with his primary care physician as scheduled. He was counseled on the importance of diet and exercise as well.
[2020-06-12 08:19] VITALS: BP 118/70; PULSE 104; RESP 22; TEMP 35.3; BMI 32.3
--- NOTE | 2020-06-12 09:36 | PCM.WC.PN ---
(1) Ulcer of right foot with fat layer exposed Status: Chronic Current Visit: Yes Code(s): L97.512 - Non-pressure chronic ulcer of other part of right foot with fat layer exposed Comment: Chronic Also new anterior orellana and posterior leg and proximal orientation (2) Ulcer of right lower extremity with fat layer exposed Status: Chronic Current Visit: Yes Code(s): L97.912 - Non-pressure chronic ulcer of unspecified part of right lower leg with fat layer exposed (3) Type 2 diabetes mellitus with diabetic polyneuropathy Status: Chronic Current Visit: Yes Code(s): E11.42 - Type 2 diabetes mellitus with diabetic polyneuropathy (4) Vasculitis Status: Chronic Current Visit: Yes Code(s): I77.6 - Arteritis, unspecified (5) Ulcer of left lower extremity with fat layer exposed Status: Chronic Current Visit: Yes Code(s): L97.922 - Non-pressure chronic ulcer of unspecified part of left lower leg with fat layer exposed Type of Wound Date of Service: 06/12/20 Chief Complaint: right and left Leg ulcers and right foot ulcer. New right orellana ulcers History of Wound: Mr. Arguello is a 65-year-old male with multiple comorbidities follows up for delayed healing ulcers to the right foot as well as bilateral legs. He denies chills, fever, nausea, or vomiting. He denies odor or redness. He denies pain. He changes the dressings as advised with Adaptic and Aquacel Ag. He reports less pain and stiffness to the feet since he has been taking metanx.He denies great toe drainage. He continues to smoke. He was doing some work in his garage partially while in a wheelchair and partially while standing. A shovel fell and scraped the front of his leg. At that time he denies that he was wearing any type of protective measure or an Joao wrap. This occurred on Wednesday06-08-2020. He denies other injuries. Progress of Wound: improving bilateral. New right anterior orellana ulcers. New posterior right leg ulcer proximal orientation - Physical Exam Vital Signs Temp Pulse Resp BP 95.5 F L 104 H 22 H 118/70 06/12/20 08:19 06/12/20 08:19 06/12/20 08:19 06/12/20 08:19 General: Alert, Oriented x3, Cooperative, No apparent distress Extremities: No cyanosis, No edema, No Calf Tenderness, Diminished Peripheral Pulses, Edema - Scant Skin: Ulcer/ Wound - No purulence, erythema, string, odor, infection. There is no skin discontinuity that is superficial with granular fibrous base to the anterior shins and also to the posterior leg proximal orientation to the very distal ulcer location. The skin is atrophic and hairless Wound Measurements and Assessment WC - Nurse 1 - General Ulcer Measurement Start: 05/29/20 08:15 Freq: Status: Active Protocol: Activity Type Activity Date Activity User E-Sign Co-Sign Detail Recorded Client Recorded Date Recorded By Document 06/12/20 08:19 DL [id number] 06/12/20 08:40 DL 06/12/20 08:19 Wound Center Nurse 1 [Ulcer Assessment] #22 R Orellana inf -Current Size (cm) - Length 1.1 -Current Size (cm) - Width 1 -Current Size (cm) - Depth 0.1 -Total Square Cm 1.1 -Photo Taken Yes -Exudate Amt Small -Exudate Type Serosanguineous -Wound Margin Distinct, Outline Attached -Granulation Amt Large (67-100%) -Granulation Quality Pale,[place] -Necrosis Amt Small (1-33%) -Necrotic Tissue Type Adherent Slough -Structure Exposed N/A -Texture (Lisa-wound Skin Appearance) Scarring -Moisture (Lisa-wound Skin Appearance No Abnormality ) -Color (Lisa-wound Skin Appearance) No Abnormality -Temperature (Lisa-wound Skin No Abnormality Appearance) (Pt Warm) -Tenderness on Palpation (Lisa-wound No Skin Appearance) -Anesthetic Used 4% Lidocaine Solution #21 R Med Orellana -Current Size (cm) - Length 2 -Current Size (cm) - Width 2.5 -Current Size (cm) - Depth 0.1 -Total Square Cm 5.0 -Photo Taken Yes -Exudate Amt Small -Exudate Type Serosanguineous -Wound Margin Distinct, Outline Attached -Granulation Amt Medium (34-66%) -Granulation Quality [place] -Necrosis Amt Medium (34-66%) -Necrotic Tissue Type Adherent Slough -Structure Exposed N/A -Texture (Lisa-wound Skin Appearance) Scarring -Moisture (Lisa-wound Skin Appearance No Abnormality ) -Color (Lisa-wound Skin Appearance) No Abnormality -Temperature (Lisa-wound Skin No Abnormality Appearance) (Pt Warm) -Tenderness on Palpation (Lisa-wound No Skin Appearance) -Ulcer Cleansing Wound Cleanser -Foul Odor after Cleansing No -Anesthetic Used 4% Lidocaine Solution #20 R med orellana sup -Current Size (cm) - Length 0.7 -Current Size (cm) - Width 0.5 -Current Size (cm) - Depth 0.1 -Total Square Cm 0.35 -Photo Taken Yes -Exudate Amt Small -Exudate Type Serosanguineous -Wound Margin Distinct, Outline Attached -Granulation Amt Large (67-100%) -Granulation Quality Pale,[place] -Necrosis Amt Small (1-33%) -Necrotic Tissue Type Adherent Slough -Texture (Lisa-wound Skin Appearance) Scarring -Moisture (Lisa-wound Skin Appearance No Abnormality ) -Color (Lisa-wound Skin Appearance) No Abnormality -Temperature (Lisa-wound Skin No Abnormality Appearance) (Pt Warm) -Tenderness on Palpation (Lisa-wound No Skin Appearance) -Ulcer Cleansing Wound Cleanser -Foul Odor after Cleansing No -Anesthetic Used 4% Lidocaine Solution #11 RIGHT MEDIAL FOOT -Current Size (cm) - Length 1.7 -Current Size (cm) - Width 0.3 -Current Size (cm) - Depth 0.1 -Total Square Cm 0.51 -Photo Taken No -Exudate Amt None Present -Wound Margin Thickened -Granulation Amt Small (1-33%) -Granulation Quality [place] -Necrosis Amt Small (1-33%) -Necrotic Tissue Type Adherent Slough -Structure Exposed N/A -Texture (Lisa-wound Skin Appearance) Callus,Scarring -Moisture (Lisa-wound Skin Appearance No Abnormality ) -Color (Lisa-wound Skin Appearance) No Abnormality -Temperature (Lisa-wound Skin No Abnormality Appearance) (Pt Warm) -Tenderness on Palpation (Lisa-wound No Skin Appearance) -Ulcer Cleansing Wound Cleanser -Foul Odor after Cleansing No -Anesthetic Used 4% Lidocaine Solution #6 POSTERIOR LLE -Current Size (cm) - Length 12.4 -Current Size (cm) - Width 1 -Current Size (cm) - Depth 0.2 -Total Square Cm 12.4 -Photo Taken No -Exudate Amt Small -Exudate Type Serosanguineous -Wound Margin Thickened & Rolled Under -Granulation Amt Medium (34-66%) -Granulation Quality Red -Necrosis Amt Medium (34-66%) -Necrotic Tissue Type Adherent Slough -Structure Exposed N/A -Texture (Lisa-wound Skin Appearance) Scarring -Moisture (Lisa-wound Skin Appearance No Abnormality, ) Dry/Scaly -Color (Lisa-wound Skin Appearance) No Abnormality -Temperature (Lisa-wound Skin No Abnormality Appearance) (Pt Warm) -Tenderness on Palpation (Lisa-wound No Skin Appearance) -Ulcer Cleansing Wound Cleanser -Foul Odor after Cleansing No -Anesthetic Used 4% Lidocaine Solution #4 POSTERIOR RLE -Current Size (cm) - Length 3.7 -Current Size (cm) - Width 1.3 -Current Size (cm) - Depth 0.4 -Total Square Cm 4.81 -Photo Taken No -Exudate Amt Small -Exudate Type Serosanguineous -Wound Margin Thickened -Granulation Amt Medium (34-66%) -Granulation Quality [place],Red -Necrosis Amt Medium (34-66%) -Necrotic Tissue Type Adherent Slough -Structure Exposed N/A -Texture (Lisa-wound Skin Appearance) Scarring -Moisture (Lisa-wound Skin Appearance No Abnormality ) -Color (Lisa-wound Skin Appearance) No Abnormality -Temperature (Lisa-wound Skin No Abnormality Appearance) (Pt Warm) -Tenderness on Palpation (Lisa-wound No Skin Appearance) -Ulcer Cleansing Wound Cleanser -Foul Odor after Cleansing No -Anesthetic Used 4% Lidocaine Solution WC - Nurse 2 - General Ulcer CM Notes Start: 05/29/20 08:15 Freq: Status: Active Protocol: Activity Type Activity Date Activity User E-Sign Co-Sign Detail Recorded Client Recorded Date Recorded By Document 06/12/20 09:02 JAMAL [id number] 06/12/20 09:08 JAMAL 06/12/20 09:02 Wound Center Nurse 2 [Procedure/Treatment] 23-right superior achilles -Time 09:06 -Correct Patient Yes -Correct Side, Site, Position Yes -Correct Procedure Yes -Procedure Performed Yes -Type of Procedure Debridement -Clinical Debridement Subcutaneous -Post Debridement Size (cm) - Length 0.2 -Post Debridement Size (cm) - Width 1.1 -Post Debridement Size (cm) - Depth 0.1 -Total Square (cm) 0.22 -Wound/Ulcer Outcome Not Healed -Ulcer Cleansing Rinsed/ Irrigated with Saline -Foul Odor after Cleansing No -Bioengineered Tissue No -Bleeding Controlled with Pressure -Offloading No -Treatment Response Procedure Tolerated Well #22 Neetu Orellana inf -Time 09:02 -Correct Patient Yes -Correct Side, Site, Position Yes -Correct Procedure Yes -Procedure Performed Yes -Type of Procedure Debridement -Clinical Debridement Subcutaneous -Post Debridement Size (cm) - Length 1 -Post Debridement Size (cm) - Width 1.1 -Post Debridement Size (cm) - Depth 0.1 -Total Square (cm) 1.1 -Wound/Ulcer Outcome Not Healed -Ulcer Cleansing Rinsed/ Irrigated with Saline -Foul Odor after Cleansing No -Bioengineered Tissue No -Bleeding Controlled with Pressure -Offloading No -Treatment Response Procedure Tolerated Well #21 R Prema Orellana -Time 09:03 -Correct Patient Yes -Correct Side, Site, Position Yes -Correct Procedure Yes -Procedure Performed Yes -Type of Procedure Debridement -Clinical Debridement Subcutaneous -Post Debridement Size (cm) - Length 2.0 -Post Debridement Size (cm) - Width 2.6 -Post Debridement Size (cm) - Depth 0.1 -Total Square (cm) 5.20 -Wound/Ulcer Outcome Not Healed -Ulcer Cleansing Rinsed/ Irrigated with Saline -Foul Odor after Cleansing No -Bioengineered Tissue No -Bleeding Controlled with Pressure -Offloading No -Treatment Response Procedure Tolerated Well #20 R prema orellana sup -Time 09:03 -Correct Patient Yes -Correct Side, Site, Position Yes -Correct Procedure Yes -Procedure Performed Yes -Type of Procedure Debridement -Clinical Debridement Subcutaneous -Post Debridement Size (cm) - Length 0.8 -Post Debridement Size (cm) - Width 0.5 -Post Debridement Size (cm) - Depth 0.1 -Total Square (cm) 0.40 -Wound/Ulcer Outcome Not Healed -Foul Odor after Cleansing No -Bleeding Controlled with Pressure -Offloading No -Treatment Response Procedure Tolerated Well #11 RIGHT MEDIAL FOOT -Time 09:04 -Correct Patient Yes -Correct Side, Site, Position Yes -Correct Procedure Yes -Procedure Performed Yes -Type of Procedure Debridement -Clinical Debridement Subcutaneous -Post Debridement Size (cm) - Length 1.8 -Post Debridement Size (cm) - Width 0.3 -Post Debridement Size (cm) - Depth 0.1 -Total Square (cm) 0.54 -Wound/Ulcer Outcome Not Healed -Ulcer Cleansing Rinsed/ Irrigated with Saline -Foul Odor after Cleansing No -Bioengineered Tissue No -Bleeding Controlled with Pressure -Offloading No -Treatment Response Procedure Tolerated Well #6 POSTERIOR LLE -Time 09:04 -Correct Patient Yes -Correct Side, Site, Position Yes -Correct Procedure Yes -Procedure Performed Yes -Type of Procedure Debridement -Clinical Debridement Subcutaneous -Post Debridement Size (cm) - Length 12.5 -Post Debridement Size (cm) - Width 1 -Post Debridement Size (cm) - Depth 0.2 -Total Square (cm) 12.5 -Wound/Ulcer Outcome Not Healed -Ulcer Cleansing Rinsed/ Irrigated with Saline -Foul Odor after Cleansing No -Bioengineered Tissue No -Bleeding Controlled with Pressure -Offloading No -Treatment Response Procedure Tolerated Well #4 POSTERIOR RLE -Time 09:04 -Correct Patient Yes -Correct Side, Site, Position Yes -Correct Procedure Yes -Procedure Performed Yes -Type of Procedure Debridement -Clinical Debridement Subcutaneous -Post Debridement Size (cm) - Length 3.7 -Post Debridement Size (cm) - Width 1.3 -Post Debridement Size (cm) - Depth 0.4 -Total Square (cm) 4.81 -Wound/Ulcer Outcome Not Healed -Ulcer Cleansing Rinsed/ Irrigated with Saline -Foul Odor after Cleansing No -Bioengineered Tissue No -Bleeding Controlled with Pressure -Offloading No -Treatment Response Procedure Tolerated Well [See Physician Procedure note for Specifics] Pain Scale: 0-10 Numeric [Pain] -Is Patient Pain Free? Yes Musculoskeletal: Muscle Wasting Neurological: - - Lack of normal epicritic sensation to light touch Psych/Mental Status: Normal Affect, Appropriate Debridement Note Post-Debridement Measurements/Treatment WC - Nurse 2 - General Ulcer CM Notes Start: 05/29/20 08:15 Freq: Status: Active Protocol: Activity Type Activity Date Activity User E-Sign Co-Sign Detail Recorded Client Recorded Date Recorded By Document 05/29/20 09:07 PL [id number] 05/29/20 09:10 PL Document 06/12/20 09:02 JAMAL [id number] 06/12/20 09:08 JAMAL 05/29/20 06/12/20 09:07 09:02 Wound Center Nurse 2 23-right superior achilles -Time 09:06 -Correct Patient Yes -Correct Side, Site, Position Yes -Correct Procedure Yes -Procedure Performed Yes -Type of Procedure Debridement -Clinical Debridement Subcutaneous -Post Debridement Size (cm) - Length 0.2 -Post Debridement Size (cm) - Width 1.1 -Post Debridement Size (cm) - Depth 0.1 -Total Square (cm) 0.22 -Wound/Ulcer Outcome Not Healed -Ulcer Cleansing Rinsed/ Irrigated with Saline -Foul Odor after Cleansing No -Bioengineered Tissue No -Bleeding Controlled with Pressure -Offloading No -Treatment Response Procedure Tolerated Well #22 Neetu Orellana inf -Time 09:02 -Correct Patient Yes -Correct Side, Site, Position Yes -Correct Procedure Yes -Procedure Performed Yes -Type of Procedure Debridement -Clinical Debridement Subcutaneous -Post Debridement Size (cm) - Length 1 -Post Debridement Size (cm) - Width 1.1 -Post Debridement Size (cm) - Depth 0.1 -Total Square (cm) 1.1 -Wound/Ulcer Outcome Not Healed -Ulcer Cleansing Rinsed/ Irrigated with Saline -Foul Odor after Cleansing No -Bioengineered Tissue No -Bleeding Controlled with Pressure -Offloading No -Treatment Response Procedure Tolerated Well #21 R Prema Orellana -Time 09:03 -Correct Patient Yes -Correct Side, Site, Position Yes -Correct Procedure Yes -Procedure Performed Yes -Type of Procedure Debridement -Clinical Debridement Subcutaneous -Post Debridement Size (cm) - Length 2.0 -Post Debridement Size (cm) - Width 2.6 -Post Debridement Size (cm) - Depth 0.1 -Total Square (cm) 5.20 -Wound/Ulcer Outcome Not Healed -Ulcer Cleansing Rinsed/ Irrigated with Saline -Foul Odor after Cleansing No -Bioengineered Tissue No -Bleeding Controlled with Pressure -Offloading No -Treatment Response Procedure Tolerated Well #20 Neetu orellana sup -Time 09:03 -Correct Patient Yes -Correct Side, Site, Position Yes -Correct Procedure Yes -Procedure Performed Yes -Type of Procedure Debridement -Clinical Debridement Subcutaneous -Post Debridement Size (cm) - Length 0.8 -Post Debridement Size (cm) - Width 0.5 -Post Debridement Size (cm) - Depth 0.1 -Total Square (cm) 0.40 -Wound/Ulcer Outcome Not Healed -Foul Odor after Cleansing No -Bleeding Controlled with Pressure -Offloading No -Treatment Response Procedure Tolerated Well #11 RIGHT MEDIAL FOOT -Time 08:35 09:04 -Correct Patient Yes Yes -Correct Side, Site, Position Yes Yes -Correct Procedure Yes Yes -Procedure Performed Yes Yes -Type of Procedure Debridement Debridement -Clinical Debridement Subcutaneous Subcutaneous -Post Debridement Size (cm) - Length 1.8 1.8 -Post Debridement Size (cm) - Width 0.6 0.3 -Post Debridement Size (cm) - Depth 0.4 0.1 -Total Square (cm) 1.08 0.54 -Wound/Ulcer Outcome Not Healed Not Healed -Ulcer Cleansing Rinsed/ Rinsed/ Irrigated with Irrigated with Saline Saline -Foul Odor after Cleansing No No -Bioengineered Tissue No -Bleeding Controlled with Pressure Pressure -Offloading No -Treatment Response Procedure Procedure Tolerated Well Tolerated Well #6 POSTERIOR LLE -Time 08:35 09:04 -Correct Patient Yes Yes -Correct Side, Site, Position Yes Yes -Correct Procedure Yes -Procedure Performed Yes -Type of Procedure Debridement Debridement -Clinical Debridement Subcutaneous Subcutaneous -Post Debridement Size (cm) - Length 6.1 12.5 -Post Debridement Size (cm) - Width 1.6 1 -Post Debridement Size (cm) - Depth 0.3 0.2 -Total Square (cm) 9.76 12.5 -Wound/Ulcer Outcome Not Healed Not Healed -Ulcer Cleansing Rinsed/ Rinsed/ Irrigated with Irrigated with Saline Saline -Foul Odor after Cleansing No No -Bioengineered Tissue No -Bleeding Controlled with Pressure Pressure -Offloading No -Treatment Response Procedure Procedure Tolerated Well Tolerated Well #4 POSTERIOR RLE -Time 08:35 09:04 -Correct Patient Yes Yes -Correct Side, Site, Position Yes Yes -Correct Procedure Yes Yes -Procedure Performed Yes Yes -Type of Procedure Debridement Debridement -Clinical Debridement Subcutaneous Subcutaneous -Post Debridement Size (cm) - Length 3.6 3.7 -Post Debridement Size (cm) - Width 0.9 1.3 -Post Debridement Size (cm) - Depth 0.4 0.4 -Total Square (cm) 3.24 4.81 -Wound/Ulcer Outcome Not Healed Not Healed -Ulcer Cleansing Rinsed/ Rinsed/ Irrigated with Irrigated with Saline Saline -Foul Odor after Cleansing No No -Bioengineered Tissue No -Bleeding Controlled with Pressure Pressure -Offloading No -Treatment Response Procedure Procedure Tolerated Well Tolerated Well Pain Scale: 0-10 Numeric Is Patient Pain Free? Yes Yes Wound debrided: posterior leg, medial plantar foot Laterality: Right Wound Grade/Stage: grade 3 Type of Debridement: Excisional debridement Anesthesia Used: 5% Lidocaine Gel Depth: in the subcutaneous layer Percentage of wound debrided: 100 Instrument Used: #15 blade Tissue Removed: fibrous, devitalized subcutaneous, biofilm, slough Severity: Fat Layer Exposed Amount of bleeding with debridement: Mild Bleeding Controlled with: Pressure Patient tolerated procedure well - Additional Wound Wound debrided: anterior orellana (new) Laterality: Right Wound Grade/Stage: grade1 Type of Debridement: Excisional debridement Anesthesia Used: 5% Lidocaine Gel Depth: in the subcutaneous layer Percentage of wound debrided: 100 Instrument Used: #15 blade Tissue Removed: fibrous, devitalized subcutaneous, biofilm, slough Severity: Fat Layer Exposed Amount of bleeding with debridement: Mild Bleeding Controlled with: Pressure Patient tolerated procedure: Patient tolerated procedure well - Additional Wound Wound debrided: posterior leg (proximal orientation to distal most ulcer) Laterality: Right Wound Grade/Stage: grade 1 Type of Debridement: Excisional debridement Anesthesia Used: 5% Lidocaine Gel Depth: in the subcutaneous layer Percentage of wound debrided: 100 Instrument Used: #15 blade Tissue Removed: fibrous, devitalized subcutaneous, biofilm, slough Severity: Fat Layer Exposed Amount of bleeding with debridement: Mild Bleeding Controlled with: Pressure Patient tolerated procedure: Patient tolerated procedure well Assessment/Plan Active Problems (Last Updated 09/28/18 @ 12:41 by Geraldine Steele) Ulcer of right foot with fat layer exposed (Chronic) Chronic Also new anterior orellana and posterior leg and proximal orientation Ulcer of right lower extremity with fat layer exposed (Chronic) Type 2 diabetes mellitus with diabetic polyneuropathy (Chronic) Vasculitis (Chronic) Ulcer of left lower extremity with fat layer exposed (Chronic) Assessment: -New right posterior leg ulcer grade 1, no infection. -New right anterior leg ulcer grade 1, no infection. -Prior status post operating room excisional subcutaneous and tendon debridements to bilateral legs and right foot with additional application of advanced wound healing products to bilateral posterior lower legs--no infection and stable today -improvement noted. 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 -previous bilateral leg fasciotomies and debridements and irrigation performed previously now with right and left leg ulcers with fat and tendon layers exposed. -diabetic neuropathy. -malnutrition suspected. 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 -delayed healing. -gait impairment and fall risk. -other comorbidities. -Continued smoking habits Plan: I reviewed and discussed his case today. Debridement was performed to all sites as noted in the nursing panel in a subcutaneous excisional manner. His new ulcer sites are noted. Compliance was reviewed while he is outside he needs to wear a cam walker to avoid these types of injuries. He will bring this to his follow-up visit to see if additional adjustment is possible. To change daily with Aquacel Ag and Adaptic. It is noted he started taking Metanx for neuropathy symptoms and is doing well so far; he was advised to continue. He actually feels some increased discomfort associated with his improvement in sensation and he was advised that this is normal. We will continue to monitor his progress and hopefully the discomfort will dissipate as he continues to heal his nerve fibers. He was reassured no local or systemic signs of illness is suspected today. To continue increased protein intake with nutritional supplementation. To continue glycemic control. He had a previous arterial Doppler scheduled with Dr. Morgan's staff on August 02, 2018 and overall perfusion was confirmed; additional intervention or workup was not recommended. It is also noted that he did have venous Doppler performed with reflux evaluation. He did not have evidence of deep venous thrombosis or venous insufficiency at that time; the vessels were compressible. I recommend he sustained from smoking and alcohol activities to optimize healing as well. Smoking cessation was encouraged. Prior workup summary: His workup for vasculitis and underlying autoimmune disorder has been completed. A punch biopsy was sent during his last surgical intervention on June 10 and this demonstrated inflammatory changes without malignancy. He had initial screening labs and so far he has a negative RA titer, HL of the 27, KEVIN, anti-CCP, and rheumatoid factor. Several his antibody screenings were not reportable. Hyperbaric oxygen therapy was recommended and it is noted his ejection fraction was most recently 50%. He refuses at this time. . I answered his questions. To return to the wound healing center in 2 week. Due to coronavirus pandemic, reduced in person visits are offered. To call sooner if he has any questions or concerns. He will return next week for debridement. . Quality measures reviewed as the following: Updated today: Medication and allergy reconciliation, pain status and follow-up plan. updated 01-10-2020- he denies falls this past year. Reviewed on 11-29-2019: up-to-date pneumonia vaccination status, he has not up-to-date influenza immunization performed in 09/2019, he does have a living will on file. He is a smoker and smoking cessation was reviewed. He does have elevated blood pressure at or above 120/80 mmHg and also elevated body mass index. For these issues I recommend he follows up with his primary care physician as scheduled. He was counseled on the importance of diet and exercise as well. Quality measures reviewed as the following: Updated today: Medication and allergy reconciliation, pain status and follow-up plan. Reviewed on 11-29-2019: up-to-date pneumonia vaccination status, he has not up-to-date influenza immunization performed in 09/2019, he does have a living will on file. He is a smoker and smoking cessation was reviewed. He does have elevated blood pressure at or above 120/80 mmHg and also elevated body mass index. For these issues I recommend he follows up with his primary care physician as scheduled. He was counseled on the importance of diet and exercise as well.
== END 2020-06-21 23:59 ==
LOC: WC 08:00
PROVIDERS: Family Provider Family Medicine; PCP Family Medicine; Visit Provider Podiatrist
DX: E11.621 Type 2 diabetes mellitus with foot ulcer (principal); L97.512 Non-pressure chronic ulcer of other part of right foot with fat layer exposed; L97.912 Non-pressure chronic ulcer of unspecified part of right lower leg with fat layer exposed; E11.42 Type 2 diabetes mellitus with diabetic polyneuropathy; I77.6 Arteritis, unspecified; M72.6 Necrotizing fasciitis; R03.0 Elevated blood-pressure reading, without diagnosis of hypertension
CPT/HCPCS: 11042; 11045; 11056; 11721

== ENCOUNTER 2020-07-10 08:30 | Outpatient (RCR) | payer MEDICARE, SELFPAY ==
[2020-06-22 00:21] VITALS: BP 118/70; PULSE 104; RESP 22; TEMP 35.3
[2020-06-26 08:06] VITALS: BP 118/87; PULSE 101; RESP 18; TEMP 35.9; BMI 32.3
--- NOTE | 2020-06-26 10:28 | PCM.WC.PN ---
(1) Ulcer of right foot with fat layer exposed Status: Chronic Current Visit: Yes Code(s): L97.512 - Non-pressure chronic ulcer of other part of right foot with fat layer exposed Comment: Chronic Also new anterior orellana and posterior leg and proximal orientation (2) Type 2 diabetes mellitus with diabetic polyneuropathy Status: Chronic Current Visit: Yes Code(s): E11.42 - Type 2 diabetes mellitus with diabetic polyneuropathy (3) Vasculitis Status: Chronic Current Visit: Yes Code(s): I77.6 - Arteritis, unspecified (4) Ulcer of left lower extremity with fat layer exposed Status: Chronic Current Visit: Yes Code(s): L97.922 - Non-pressure chronic ulcer of unspecified part of left lower leg with fat layer exposed (5) Localized edema Status: Chronic Current Visit: Yes Code(s): R60.0 - Localized edema (6) Ulcer of right lower extremity with fat layer exposed Status: Chronic Current Visit: Yes Code(s): L97.912 - Non-pressure chronic ulcer of unspecified part of right lower leg with fat layer exposed Type of Wound Date of Service: 06/26/20 Chief Complaint: right and left Leg ulcers and right foot ulcer. New right orellana ulcers (proximal) History of Wound: Mr. Arguello is a 65-year-old male with multiple comorbidities follows up for delayed healing ulcers to the right foot as well as bilateral legs. He denies chills, fever, nausea, or vomiting. He denies odor or redness. He denies pain. He changes the dressings as advised with Adaptic and Aquacel Ag. He reports less pain and stiffness to the feet since he has been taking metanx.He denies great toe drainage. He continues to smoke. He was doing some work in his garage partially while in a wheelchair and partially while standing. A shovel fell and scraped the front of his leg. At that time he denies that he was wearing any type of protective measure or an Joao wrap. This occurred on Wednesday06-08-2020. He denies other injuries. Progress of Wound: improving bilateral. New right proximal anterior leg - Physical Exam Vital Signs Temp Pulse Resp BP 96.6 F L 101 H 18 118/87 H 06/26/20 08:06 06/26/20 08:06 06/26/20 08:06 06/26/20 08:06 General: Alert, Oriented x3, Cooperative, No apparent distress HEENT: Atraumatic Extremities: No cyanosis, Capillary Refill Less than 3 Seconds, No Calf Tenderness, Diminished Peripheral Pulses, Edema - Increased right lower extremity with hyperpigmentation Skin: Ulcer/ Wound - No purulence, erythema, streaking, odor, infection. Skin is atrophic hairless. Wound Measurements and Assessment WC - Nurse 1 - General Ulcer Measurement Start: 06/26/20 08:06 Freq: Status: Active Protocol: Activity Type Activity Date Activity User E-Sign Co-Sign Detail Recorded Client Recorded Date Recorded By Document 06/26/20 08:06 [address] [id number] 06/26/20 08:36 PL 06/26/20 08:06 Wound Center Nurse 1 [Ulcer Assessment] 23-right superior achilles -Combined with other wound No -Current Size (cm) - Length 0.2 -Current Size (cm) - Width 0.5 -Current Size (cm) - Depth 0.1 -Total Square Cm 0.10 -Photo Taken No -Epithelialization None Present -Tunneling No -Undermining/Tunneling No -Exudate Amt Small -Exudate Type Serosanguineous -Granulation Amt Small (1-33%) -Granulation Quality [place] -Slough/Fibrin Yes -Necrosis Amt Large (67-100%) -Necrotic Tissue Type Adherent Slough -Texture (Lisa-wound Skin Appearance) No Abnormality -Moisture (Lisa-wound Skin Appearance No Abnormality ) -Color (Lisa-wound Skin Appearance) No Abnormality -Temperature (Lisa-wound Skin No Abnormality Appearance) (Pt Warm) -Ulcer Cleansing Rinsed/ Irrigated with Saline -Foul Odor after Cleansing No -Anesthetic Used 4% Lidocaine Solution #22 R Orellana inf -Combined with other wound No -Current Size (cm) - Length 2.5 -Current Size (cm) - Width 2.0 -Current Size (cm) - Depth 0.1 -Total Square Cm 5.00 -Photo Taken No -Epithelialization None Present -Tunneling No -Undermining/Tunneling No -Circular Undermining No -Exudate Amt Medium -Exudate Type Serosanguineous -Granulation Amt Small (1-33%) -Granulation Quality [place] -Slough/Fibrin Yes -Necrosis Amt Large (67-100%) -Necrotic Tissue Type Adherent Slough -Texture (Lisa-wound Skin Appearance) No Abnormality -Moisture (Lisa-wound Skin Appearance No Abnormality ) -Color (Lisa-wound Skin Appearance) No Abnormality -Temperature (Lisa-wound Skin No Abnormality Appearance) (Pt Warm) -Ulcer Cleansing Rinsed/ Irrigated with Saline -Foul Odor after Cleansing No -Anesthetic Used 4% Lidocaine Solution #21 R Med Orellana -Combined with other wound No -Current Size (cm) - Length 1 -Current Size (cm) - Width 0.5 -Current Size (cm) - Depth 0.1 -Total Square Cm 0.5 -Photo Taken No -Epithelialization None Present -Tunneling No -Undermining/Tunneling No -Granulation Amt None Present (0 %) -Slough/Fibrin Yes -Necrosis Amt Large (67-100%) -Necrotic Tissue Type Adherent Slough -Ulcer Cleansing Rinsed/ Irrigated with Saline -Foul Odor after Cleansing No -Anesthetic Used 4% Lidocaine Solution #11 RIGHT MEDIAL FOOT -Combined with other wound No -Current Size (cm) - Length 1 -Current Size (cm) - Width 1.5 -Current Size (cm) - Depth 0.2 -Total Square Cm 1.5 -Photo Taken No -Epithelialization None Present -Tunneling No -Undermining/Tunneling No -Circular Undermining No -Exudate Amt Medium -Exudate Type Serosanguineous -Granulation Amt Medium (34-66%) -Granulation Quality [place] -Slough/Fibrin Yes -Necrosis Amt Medium (34-66%) -Necrotic Tissue Type Adherent Slough -Texture (Lisa-wound Skin Appearance) No Abnormality -Moisture (Lisa-wound Skin Appearance No Abnormality ) -Color (Lisa-wound Skin Appearance) No Abnormality -Temperature (Lisa-wound Skin No Abnormality Appearance) (Pt Warm) -Ulcer Cleansing Rinsed/ Irrigated with Saline -Foul Odor after Cleansing No -Anesthetic Used 4% Lidocaine Solution #6 POSTERIOR LLE -Combined with other wound No -Current Size (cm) - Length 3 -Current Size (cm) - Width 1 -Current Size (cm) - Depth 0.2 -Total Square Cm 3 -Photo Taken No -Epithelialization Small 1-33% -Tunneling No -Undermining/Tunneling No -Exudate Amt Medium -Exudate Type Serosanguineous -Granulation Amt Medium (34-66%) -Granulation Quality [place] -Slough/Fibrin Yes -Necrosis Amt Medium (34-66%) -Necrotic Tissue Type Adherent Slough -Texture (Lisa-wound Skin Appearance) No Abnormality -Moisture (Lisa-wound Skin Appearance No Abnormality ) -Color (Lisa-wound Skin Appearance) No Abnormality -Temperature (Lisa-wound Skin No Abnormality Appearance) (Pt Warm) -Ulcer Cleansing Rinsed/ Irrigated with Saline -Foul Odor after Cleansing No -Anesthetic Used 4% Lidocaine Solution #4 POSTERIOR RLE -Combined with other wound No -Current Size (cm) - Length 4 -Current Size (cm) - Width 1 -Current Size (cm) - Depth 0.3 -Total Square Cm 4 -Photo Taken No -Epithelialization None Present -Tunneling No -Undermining/Tunneling No -Exudate Amt Medium -Exudate Type Serosanguineous -Granulation Amt Medium (34-66%) -Granulation Quality [place] -Slough/Fibrin Yes -Necrosis Amt Medium (34-66%) -Necrotic Tissue Type Adherent Slough -Texture (Lisa-wound Skin Appearance) No Abnormality -Moisture (Lisa-wound Skin Appearance Dry/Scaly ) -Color (Lisa-wound Skin Appearance) No Abnormality -Temperature (Lisa-wound Skin No Abnormality Appearance) (Pt Warm) -Tenderness on Palpation (Lisa-wound No Skin Appearance) -Ulcer Cleansing Rinsed/ Irrigated with Saline -Foul Odor after Cleansing No -Anesthetic Used 4% Lidocaine Solution WC - Nurse 2 - General Ulcer CM Notes Start: 06/26/20 08:06 Freq: Status: Active Protocol: Activity Type Activity Date Activity User E-Sign Co-Sign Detail Recorded Client Recorded Date Recorded By Document 06/26/20 08:38 JAMAL [id number] 06/26/20 08:43 JAMAL 06/26/20 08:38 Wound Center Nurse 2 [Procedure/Treatment] 23-right superior achilles -Time 08:39 -Correct Patient Yes -Correct Side, Site, Position Yes -Correct Procedure Yes -Procedure Performed Yes -Type of Procedure Debridement -Clinical Debridement Subcutaneous -Post Debridement Size (cm) - Length 0.2 -Post Debridement Size (cm) - Width 0.6 -Post Debridement Size (cm) - Depth 0.2 -Total Square (cm) 0.12 -Wound/Ulcer Outcome Not Healed -Ulcer Cleansing Rinsed/ Irrigated with Saline -Foul Odor after Cleansing No -Bioengineered Tissue No -Bleeding Controlled with Pressure -Offloading No -Treatment Response Procedure Tolerated Well #22 Neetu Orellana inf -Time 08:39 -Correct Patient Yes -Correct Side, Site, Position Yes -Correct Procedure Yes -Procedure Performed Yes -Type of Procedure Debridement -Clinical Debridement Subcutaneous -Post Debridement Size (cm) - Length 2.5 -Post Debridement Size (cm) - Width 2.1 -Post Debridement Size (cm) - Depth 0.1 -Total Square (cm) 5.25 -Wound/Ulcer Outcome Not Healed -Ulcer Cleansing Rinsed/ Irrigated with Saline -Foul Odor after Cleansing No -Bioengineered Tissue No -Bleeding Controlled with Pressure -Offloading No -Treatment Response Procedure Tolerated Well #21 R [place] Orellana -Time 08:39 -Correct Patient Yes -Correct Side, Site, Position Yes -Correct Procedure Yes -Procedure Performed Yes -Type of Procedure Debridement -Clinical Debridement Subcutaneous -Post Debridement Size (cm) - Length 1.1 -Post Debridement Size (cm) - Width 0.6 -Post Debridement Size (cm) - Depth 0.1 -Total Square (cm) 0.66 -Wound/Ulcer Outcome Not Healed -Ulcer Cleansing Rinsed/ Irrigated with Saline -Foul Odor after Cleansing No -Bioengineered Tissue No -Bleeding Controlled with Pressure -Offloading No -Treatment Response Procedure Tolerated Well #20 Neetu orellana sup -Time 08:40 -Correct Patient Yes -Correct Side, Site, Position Yes -Correct Procedure Yes -Procedure Performed Yes -Type of Procedure Debridement -Clinical Debridement Subcutaneous -Post Debridement Size (cm) - Length 6.8 -Post Debridement Size (cm) - Width 1.5 -Post Debridement Size (cm) - Depth 0.1 -Total Square (cm) 10.20 -Wound/Ulcer Outcome Not Healed -Ulcer Cleansing Rinsed/ Irrigated with Saline -Foul Odor after Cleansing No -Bioengineered Tissue No -Bleeding Controlled with Pressure -Offloading No -Treatment Response Procedure Tolerated Well #11 RIGHT MEDIAL FOOT -Time 08:40 -Correct Patient Yes -Correct Side, Site, Position Yes -Correct Procedure Yes -Procedure Performed Yes -Type of Procedure Debridement -Clinical Debridement Subcutaneous -Post Debridement Size (cm) - Length 1.1 -Post Debridement Size (cm) - Width 1.6 -Post Debridement Size (cm) - Depth 0.2 -Total Square (cm) 1.76 -Wound/Ulcer Outcome Not Healed -Ulcer Cleansing Rinsed/ Irrigated with Saline -Foul Odor after Cleansing No -Bioengineered Tissue No -Bleeding Controlled with Pressure -Offloading No -Treatment Response Procedure Tolerated Well #6 POSTERIOR LLE -Time 08:40 -Correct Patient Yes -Correct Side, Site, Position Yes -Correct Procedure Yes -Procedure Performed Yes -Type of Procedure Debridement -Clinical Debridement Subcutaneous -Post Debridement Size (cm) - Length 3 -Post Debridement Size (cm) - Width 1.1 -Post Debridement Size (cm) - Depth 0.2 -Total Square (cm) 3.3 -Wound/Ulcer Outcome Not Healed -Ulcer Cleansing Rinsed/ Irrigated with Saline -Foul Odor after Cleansing No -Bioengineered Tissue No -Bleeding Controlled with Pressure -Offloading No -Treatment Response Procedure Tolerated Well #4 POSTERIOR RLE -Time 08:41 -Correct Patient Yes -Correct Side, Site, Position Yes -Correct Procedure Yes -Procedure Performed Yes -Type of Procedure Debridement -Clinical Debridement Subcutaneous -Post Debridement Size (cm) - Length 4.1 -Post Debridement Size (cm) - Width 1 -Post Debridement Size (cm) - Depth 0.3 -Total Square (cm) 4.1 -Wound/Ulcer Outcome Not Healed -Ulcer Cleansing Rinsed/ Irrigated with Saline -Foul Odor after Cleansing No -Bioengineered Tissue No -Bleeding Controlled with Pressure -Offloading No -Treatment Response Procedure Tolerated Well [See Physician Procedure note for Specifics] Pain Scale: 0-10 Numeric [Pain] -Is Patient Pain Free? Yes Musculoskeletal: No Tenderness to Palpation of Joints or Extremities, Muscle Wasting Neurological: - - Lack of normal epicritic sensation light touch Psych/Mental Status: Normal Affect, Appropriate Debridement Note Post-Debridement Measurements/Treatment WC - Nurse 2 - General Ulcer CM Notes Start: 06/26/20 08:06 Freq: Status: Active Protocol: Activity Type Activity Date Activity User E-Sign Co-Sign Detail Recorded Client Recorded Date Recorded By Document 06/26/20 08:38 JAMAL [id number] 06/26/20 08:43 JAMAL 06/26/20 08:38 Wound Center Nurse 2 23-right superior achilles -Time 08:39 -Correct Patient Yes -Correct Side, Site, Position Yes -Correct Procedure Yes -Procedure Performed Yes -Type of Procedure Debridement -Clinical Debridement Subcutaneous -Post Debridement Size (cm) - Length 0.2 -Post Debridement Size (cm) - Width 0.6 -Post Debridement Size (cm) - Depth 0.2 -Total Square (cm) 0.12 -Wound/Ulcer Outcome Not Healed -Ulcer Cleansing Rinsed/ Irrigated with Saline -Foul Odor after Cleansing No -Bioengineered Tissue No -Bleeding Controlled with Pressure -Offloading No -Treatment Response Procedure Tolerated Well #22 R Orellana inf -Time 08:39 -Correct Patient Yes -Correct Side, Site, Position Yes -Correct Procedure Yes -Procedure Performed Yes -Type of Procedure Debridement -Clinical Debridement Subcutaneous -Post Debridement Size (cm) - Length 2.5 -Post Debridement Size (cm) - Width 2.1 -Post Debridement Size (cm) - Depth 0.1 -Total Square (cm) 5.25 -Wound/Ulcer Outcome Not Healed -Ulcer Cleansing Rinsed/ Irrigated with Saline -Foul Odor after Cleansing No -Bioengineered Tissue No -Bleeding Controlled with Pressure -Offloading No -Treatment Response Procedure Tolerated Well #21 R [employer] Orellana -Time 08:39 -Correct Patient Yes -Correct Side, Site, Position Yes -Correct Procedure Yes -Procedure Performed Yes -Type of Procedure Debridement -Clinical Debridement Subcutaneous -Post Debridement Size (cm) - Length 1.1 -Post Debridement Size (cm) - Width 0.6 -Post Debridement Size (cm) - Depth 0.1 -Total Square (cm) 0.66 -Wound/Ulcer Outcome Not Healed -Ulcer Cleansing Rinsed/ Irrigated with Saline -Foul Odor after Cleansing No -Bioengineered Tissue No -Bleeding Controlled with Pressure -Offloading No -Treatment Response Procedure Tolerated Well #20 R [employer] sup -Time 08:40 -Correct Patient Yes -Correct Side, Site, Position Yes -Correct Procedure Yes -Procedure Performed Yes -Type of Procedure Debridement -Clinical Debridement Subcutaneous -Post Debridement Size (cm) - Length 6.8 -Post Debridement Size (cm) - Width 1.5 -Post Debridement Size (cm) - Depth 0.1 -Total Square (cm) 10.20 -Wound/Ulcer Outcome Not Healed -Ulcer Cleansing Rinsed/ Irrigated with Saline -Foul Odor after Cleansing No -Bioengineered Tissue No -Bleeding Controlled with Pressure -Offloading No -Treatment Response Procedure Tolerated Well #11 RIGHT MEDIAL FOOT -Time 08:40 -Correct Patient Yes -Correct Side, Site, Position Yes -Correct Procedure Yes -Procedure Performed Yes -Type of Procedure Debridement -Clinical Debridement Subcutaneous -Post Debridement Size (cm) - Length 1.1 -Post Debridement Size (cm) - Width 1.6 -Post Debridement Size (cm) - Depth 0.2 -Total Square (cm) 1.76 -Wound/Ulcer Outcome Not Healed -Ulcer Cleansing Rinsed/ Irrigated with Saline -Foul Odor after Cleansing No -Bioengineered Tissue No -Bleeding Controlled with Pressure -Offloading No -Treatment Response Procedure Tolerated Well #6 POSTERIOR LLE -Time 08:40 -Correct Patient Yes -Correct Side, Site, Position Yes -Correct Procedure Yes -Procedure Performed Yes -Type of Procedure Debridement -Clinical Debridement Subcutaneous -Post Debridement Size (cm) - Length 3 -Post Debridement Size (cm) - Width 1.1 -Post Debridement Size (cm) - Depth 0.2 -Total Square (cm) 3.3 -Wound/Ulcer Outcome Not Healed -Ulcer Cleansing Rinsed/ Irrigated with Saline -Foul Odor after Cleansing No -Bioengineered Tissue No -Bleeding Controlled with Pressure -Offloading No -Treatment Response Procedure Tolerated Well #4 POSTERIOR RLE -Time 08:41 -Correct Patient Yes -Correct Side, Site, Position Yes -Correct Procedure Yes -Procedure Performed Yes -Type of Procedure Debridement -Clinical Debridement Subcutaneous -Post Debridement Size (cm) - Length 4.1 -Post Debridement Size (cm) - Width 1 -Post Debridement Size (cm) - Depth 0.3 -Total Square (cm) 4.1 -Wound/Ulcer Outcome Not Healed -Ulcer Cleansing Rinsed/ Irrigated with Saline -Foul Odor after Cleansing No -Bioengineered Tissue No -Bleeding Controlled with Pressure -Offloading No -Treatment Response Procedure Tolerated Well Pain Scale: 0-10 Numeric Is Patient Pain Free? Yes Wound debrided: posterior leg and foot Laterality: Right Wound Grade/Stage: grade 3 Type of Debridement: Excisional debridement Anesthesia Used: 5% Lidocaine Gel Depth: in the subcutaneous layer Percentage of wound debrided: 100 Instrument Used: #15 blade Tissue Removed: fibrous, devitalized subcutaneous, biofilm, slough Severity: Fat Layer Exposed Amount of bleeding with debridement: Mild Bleeding Controlled with: Pressure Patient tolerated procedure well - Additional Wound Wound debrided: proximal leg anterior (new) Laterality: Right Wound Grade/Stage: grade 1 Type of Debridement: Excisional debridement Anesthesia Used: 5% Lidocaine Gel Depth: in the subcutaneous layer Percentage of wound debrided: 100 Instrument Used: #15 blade Tissue Removed: fibrous, devitalized subcutaneous, biofilm, slough Severity: Fat Layer Exposed Amount of bleeding with debridement: Mild Bleeding Controlled with: Pressure Patient tolerated procedure: Patient tolerated procedure well - Additional Wound Wound debrided: posterior leg Laterality: Left Wound Grade/Stage: grade 2 Type of Debridement: Excisional debridement Anesthesia Used: 5% Lidocaine Gel Depth: in the subcutaneous layer Percentage of wound debrided: 100 Instrument Used: #15 blade Tissue Removed: fibrous, devitalized subcutaneous, biofilm, slough Severity: Fat Layer Exposed Amount of bleeding with debridement: Mild Bleeding Controlled with: Pressure Patient tolerated procedure: Patient tolerated procedure well Assessment/Plan Active Problems (Last Updated 09/28/18 @ 12:41 by Geraldine Steele) Ulcer of right foot with fat layer exposed (Chronic) Chronic Also new anterior orellana and posterior leg and proximal orientation 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 -Right posterior leg ulcer grade 1, no infection. -right anterior leg ulcer grade 1, no infection. -New right anterior proximal leg ulcer grade 1, no infection. -Prior status post operating room excisional subcutaneous and tendon debridements to bilateral legs and right foot with additional application of advanced wound healing products to bilateral posterior lower legs--no infection and stable today -improvement noted. 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 -previous bilateral leg fasciotomies and debridements and irrigation performed previously now with right and left leg ulcers with fat and tendon layers exposed. -diabetic neuropathy. -malnutrition suspected. 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 -delayed healing. -gait impairment and fall risk. -other comorbidities. -Continued smoking habits Plan: I reviewed and discussed his case today. Debridement was performed to all sites as noted in the nursing panel in a subcutaneous excisional manner. His new ulcer sites are noted. His new ulcer site is noted. Compliance was reviewed while he is outside he needs to wear a cam walker to avoid these types of injuries. He also reports he wears his compression less than 50% of the time and he was advised to improve compliance because he is developing new wounds due to his increased edema. He has a tryouts and understands how to apply them. He will bring this to his follow-up visit to see if additional adjustment is possible. To change daily with Aquacel Ag and Adaptic. It is noted he started taking Metanx for neuropathy symptoms and is doing well so far; he was advised to continue. He actually feels some increased discomfort associated with his improvement in sensation and he was advised that this is normal. We will continue to monitor his progress and hopefully the discomfort will dissipate as he continues to heal his nerve fibers. He was reassured no local or systemic signs of illness is suspected today. To continue increased protein intake with nutritional supplementation. To continue glycemic control. He had a previous arterial Doppler scheduled with Dr. Morgan's staff on August 02, 2018 and overall perfusion was confirmed; additional intervention or workup was not recommended. It is also noted that he did have venous Doppler performed with reflux evaluation. He did not have evidence of deep venous thrombosis or venous insufficiency at that time; the vessels were compressible. I recommend he sustained from smoking and alcohol activities to optimize healing as well. Smoking cessation was encouraged. Prior workup summary: His workup for vasculitis and underlying autoimmune disorder has been completed. A punch biopsy was sent during his last surgical intervention on June 10 and this demonstrated inflammatory changes without malignancy. He had initial screening labs and so far he has a negative RA titer, HL of the 27, KEVIN, anti-CCP, and rheumatoid factor. Several his antibody screenings were not reportable. Hyperbaric oxygen therapy was recommended and it is noted his ejection fraction was most recently 50%. He refuses at this time. . I answered his questions. To return to the wound healing center in 2 week. Due to coronavirus pandemic, reduced in person visits are offered. To call sooner if he has any questions or concerns. He will return next week for debridement. . Quality measures reviewed as the following: Updated today: Medication and allergy reconciliation, pain status and follow-up plan. updated 01-10-2020- he denies falls this past year. Reviewed on 11-29-2019: up-to-date pneumonia vaccination status, he has not up-to-date influenza immunization performed in 09/2019, he does have a living will on file. He is a smoker and smoking cessation was reviewed. He does have elevated blood pressure at or above 120/80 mmHg and also elevated body mass index. For these issues I recommend he follows up with his primary care physician as scheduled. He was counseled on the importance of diet and exercise as well. Quality measures reviewed as the following: Updated today: Medication and allergy reconciliation, pain status and follow-up plan. Reviewed on 11-29-2019: up-to-date pneumonia vaccination status, he has not up-to-date influenza immunization performed in 09/2019, he does have a living will on file. He is a smoker and smoking cessation was reviewed. He does have elevated blood pressure at or above 120/80 mmHg and also elevated body mass index. For these issues I recommend he follows up with his primary care physician as scheduled. He was counseled on the importance of diet and exercise as well.
[2020-07-10 09:05] VITALS: BP 126/91; PULSE 105; RESP 18; TEMP 35.5; BMI 32.3
--- NOTE | 2020-07-10 15:08 | PCM.WC.PN ---
(1) Ulcer of right foot with fat layer exposed Status: Chronic Current Visit: Yes Code(s): L97.512 - Non-pressure chronic ulcer of other part of right foot with fat layer exposed Comment: Chronic Also new anterior orellana and posterior leg and proximal orientation (2) Type 2 diabetes mellitus with diabetic polyneuropathy Status: Chronic Current Visit: Yes Code(s): E11.42 - Type 2 diabetes mellitus with diabetic polyneuropathy (3) Vasculitis Status: Chronic Current Visit: Yes Code(s): I77.6 - Arteritis, unspecified (4) Ulcer of left lower extremity with fat layer exposed Status: Chronic Current Visit: Yes Code(s): L97.922 - Non-pressure chronic ulcer of unspecified part of left lower leg with fat layer exposed (5) Localized edema Status: Chronic Current Visit: Yes Code(s): R60.0 - Localized edema (6) Ulcer of right lower extremity with fat layer exposed Status: Chronic Current Visit: Yes Code(s): L97.912 - Non-pressure chronic ulcer of unspecified part of right lower leg with fat layer exposed Type of Wound Date of Service: 07/10/20 Chief Complaint: right and left Leg ulcers and right foot ulcer. right orellana ulcers (proximal) History of Wound: Mr. Arguello is a 65-year-old male with multiple comorbidities follows up for delayed healing ulcers to the right foot as well as bilateral legs. He denies chills, fever, nausea, or vomiting. He denies odor or redness. He denies pain. He changes the dressings as advised with Adaptic and Aquacel Ag. He denies other injuries. He is with his today. Progress of Wound: stable - Physical Exam Vital Signs Temp Pulse Resp BP 96 F L 105 H 18 126/91 H 07/10/20 09:05 07/10/20 09:05 07/10/20 09:05 07/10/20 09:05 General: Alert, Oriented x3, Cooperative HEENT: Atraumatic Extremities: No cyanosis, Capillary Refill Less than 3 Seconds, No Calf Tenderness, Diminished Peripheral Pulses, Edema - Mild Skin: Ulcer/ Wound - No purulence, erythema, streaking, odor, infection, necrosis, maceration, or exposed deep tissue Wound Measurements and Assessment WC - Nurse 1 - General Ulcer Measurement Start: 06/26/20 08:06 Freq: Status: Active Protocol: Activity Type Activity Date Activity User E-Sign Co-Sign Detail Recorded Client Recorded Date Recorded By Document 07/10/20 09:05 KARLEE [id number] 07/10/20 09:12 KARLEE 07/10/20 09:05 Wound Center Nurse 1 [Ulcer Assessment] 23-right superior achilles -Combined with other wound No -Current Size (cm) - Length 4.2 -Current Size (cm) - Width 1.5 -Current Size (cm) - Depth 0.4 -Total Square Cm 6.30 -Tunneling No -Undermining/Tunneling No -Circular Undermining No -Exudate Amt Small -Exudate Type Serosanguineous -Wound Margin Flat & Intact -Granulation Amt Medium (34-66%) -Granulation Quality [facility] -Slough/Fibrin Yes -Necrosis Amt Medium (34-66%) -Necrotic Tissue Type Adherent Slough -Structure Exposed N/A -Texture (Lisa-wound Skin Appearance) Assessed -Moisture (Lisa-wound Skin Appearance Dry/Scaly ) -Color (Lisa-wound Skin Appearance) Assessed -Temperature (Lisa-wound Skin No Abnormality Appearance) (Pt Warm) -Tenderness on Palpation (Lisa-wound No Skin Appearance) -Ulcer Cleansing Wound Cleanser -Foul Odor after Cleansing No -Anesthetic Used 4% Lidocaine Solution #22 R Orellana inf -Combined with other wound No -Current Size (cm) - Length 1 -Current Size (cm) - Width 0.6 -Current Size (cm) - Depth 0.1 -Total Square Cm 0.6 -Tunneling No -Undermining/Tunneling No -Circular Undermining No -Exudate Amt Small -Exudate Type Serosanguineous -Wound Margin Flat & Intact -Granulation Amt Medium (34-66%) -Granulation Quality [facility] -Slough/Fibrin Yes -Necrosis Amt Small (1-33%) -Necrotic Tissue Type Adherent Slough -Structure Exposed N/A -Texture (Lisa-wound Skin Appearance) Assessed -Moisture (Lisa-wound Skin Appearance Dry/Scaly ) -Color (Lisa-wound Skin Appearance) Assessed -Temperature (Lisa-wound Skin No Abnormality Appearance) (Pt Warm) -Tenderness on Palpation (Lisa-wound No Skin Appearance) -Ulcer Cleansing Wound Cleanser -Foul Odor after Cleansing No -Anesthetic Used 4% Lidocaine Solution #21 R Med Orellana -Combined with other wound No -Current Size (cm) - Length 3.5 -Current Size (cm) - Width 2.4 -Current Size (cm) - Depth 0.1 -Total Square Cm 8.40 -Tunneling No -Undermining/Tunneling No -Circular Undermining No -Exudate Amt Small -Exudate Type Serosanguineous -Wound Margin Flat & Intact -Granulation Amt Medium (34-66%) -Granulation Quality [facility] -Slough/Fibrin Yes -Necrosis Amt Small (1-33%) -Necrotic Tissue Type Adherent Slough -Structure Exposed N/A -Texture (Lisa-wound Skin Appearance) Assessed -Moisture (Lisa-wound Skin Appearance Dry/Scaly ) -Color (Lisa-wound Skin Appearance) Assessed -Temperature (Lisa-wound Skin No Abnormality Appearance) (Pt Warm) -Tenderness on Palpation (Lisa-wound No Skin Appearance) -Ulcer Cleansing Wound Cleanser -Foul Odor after Cleansing No -Anesthetic Used 4% Lidocaine Solution #20 R med orellana sup -Combined with other wound No -Current Size (cm) - Length 0.1 -Current Size (cm) - Width 0.1 -Current Size (cm) - Depth 0.1 -Total Square Cm 0.01 -Tunneling No -Undermining/Tunneling No -Circular Undermining No -Exudate Amt Small -Exudate Type Serosanguineous -Wound Margin Flat & Intact -Granulation Amt Medium (34-66%) -Granulation [facility] -Slough/Fibrin Yes -Necrosis Amt Medium (34-66%) -Necrotic Tissue Type Adherent Slough -Structure Exposed N/A -Texture (Lisa-wound Skin Appearance) Assessed -Moisture (Lisa-wound Skin Appearance Dry/Scaly ) -Color (Lisa-wound Skin Appearance) Assessed -Temperature (Lisa-wound Skin No Abnormality Appearance) (Pt Warm) -Tenderness on Palpation (Lisa-wound No Skin Appearance) -Ulcer Cleansing Wound Cleanser -Foul Odor after Cleansing No -Anesthetic Used 4% Lidocaine Solution #11 RIGHT MEDIAL FOOT -Combined with other wound No -Current Size (cm) - Length 1.9 -Current Size (cm) - Width 0.5 -Current Size (cm) - Depth 0.3 -Total Square Cm 0.95 -Tunneling No -Undermining/Tunneling No -Circular Undermining No -Exudate Amt Small -Exudate Type Serosanguineous -Wound Margin Flat & Intact -Granulation Amt Medium (34-66%) -Granulation Quality [facility] -Necrosis Amt Small (1-33%) -Necrotic Tissue Type Adherent Slough -Structure Exposed N/A -Texture (Lisa-wound Skin Appearance) Assessed -Moisture (Lisa-wound Skin Appearance Dry/Scaly ) -Color (Lisa-wound Skin Appearance) Assessed -Temperature (Lisa-wound Skin No Abnormality Appearance) (Pt Warm) -Tenderness on Palpation (Lisa-wound No Skin Appearance) -Ulcer Cleansing Wound Cleanser -Foul Odor after Cleansing No -Anesthetic Used 4% Lidocaine Solution #6 POSTERIOR LLE -Combined with other wound No -Current Size (cm) - Length 6 -Current Size (cm) - Width 1 -Current Size (cm) - Depth 0.3 -Total Square Cm 6 -Tunneling No -Undermining/Tunneling No -Circular Undermining No -Exudate Amt Small -Exudate Type Serosanguineous -Wound Margin Flat & Intact -Granulation Amt Medium (34-66%) -Granulation Quality [facility] -Slough/Fibrin Yes -Necrosis Amt Medium (34-66%) -Necrotic Tissue Type Adherent Slough -Structure Exposed N/A -Texture (Lisa-wound Skin Appearance) Assessed -Moisture (Lisa-wound Skin Appearance Dry/Scaly ) -Color (Lisa-wound Skin Appearance) Assessed -Temperature (Lisa-wound Skin No Abnormality Appearance) (Pt Warm) -Tenderness on Palpation (Lisa-wound No Skin Appearance) -Ulcer Cleansing Wound Cleanser -Foul Odor after Cleansing No -Anesthetic Used 4% Lidocaine Solution #4 POSTERIOR RLE -Combined with other wound No -Current Size (cm) - Length 0.1 -Current Size (cm) - Width 0.1 -Current Size (cm) - Depth 0.1 -Total Square Cm 0.01 -Tunneling No -Undermining/Tunneling No -Circular Undermining No -Exudate Amt Small -Exudate Type Serosanguineous -Wound Margin Flat & Intact -Granulation Amt Medium (34-66%) -Granulation Quality [facility] -Slough/Fibrin Yes -Necrosis Amt Small (1-33%) -Necrotic Tissue Type Adherent Slough -Structure Exposed N/A -Texture (Lisa-wound Skin Appearance) Assessed -Moisture (Lisa-wound Skin Appearance Dry/Scaly ) -Color (Lisa-wound Skin Appearance) Assessed -Temperature (Lisa-wound Skin No Abnormality Appearance) (Pt Warm) -Tenderness on Palpation (Lisa-wound No Skin Appearance) -Ulcer Cleansing Wound Cleanser -Foul Odor after Cleansing No -Anesthetic Used 4% Lidocaine Solution [Edema Assessment] -Lower Limb Edema Present Yes -Right Calf (cm) 38.5 -Point of measurement (cm from the 22.2 medial instep) -Left Calf (cm) 37.5 -Left Ankle (cm) 21.5 WC - Nurse 2 - General Ulcer CM Notes Start: 07/09/20 19:22 Freq: Status: Active Protocol: Activity Type Activity Date Activity User E-Sign Co-Sign Detail Recorded Client Recorded Date Recorded By Document 07/10/20 09:16 JAMAL [id number] 07/10/20 09:25 JAMAL 07/10/20 09:16 Wound Center Nurse 2 [Procedure/Treatment] 23-right superior achilles -Time 09:17 -Correct Patient Yes -Correct Side, Site, Position Yes -Correct Procedure Yes -Procedure Performed Yes -Type of Procedure Debridement -Clinical Debridement Subcutaneous -Tissue Removed Subcutaneous -Post Debridement (cm) - Length 4.2 -Post Debridement (cm) - Width 1.6 -Post Debridement (cm) - Depth 0.4 -Total Square (Post) (cm) 6.72 -Area of Debridement (cm) - Length 4.2 -Area of Debridement (cm) - Width 1.6 -Total Square (Area) (cm) 6.72 -Tunneling No -Undermining/Tunneling No -Circular Undermining No -Wound/Ulcer Outcome Not Healed -Ulcer Cleansing Rinsed/ Irrigated with Saline -Foul Odor after Cleansing No -Bioengineered Tissue No -Treatment Response Procedure Tolerated Well -Debridement - Subq, 1st 20sq cm Yes #22 R Orellana inf -Time 09:17 -Correct Patient Yes -Correct Side, Site, Position Yes -Correct Procedure Yes -Procedure Performed Yes -Type of Procedure Debridement -Clinical Debridement Subcutaneous -Tissue Removed Subcutaneous -Post Debridement (cm) - Length 1.1 -Post Debridement (cm) - Width 0.7 -Post Debridement (cm) - Depth 0.1 -Total Square (Post) (cm) 0.77 -Area of Debridement (cm) - Length 1.1 -Area of Debridement (cm) - Width 0.7 -Total Square (Area) (cm) 0.77 -Tunneling No -Undermining/Tunneling No -Circular Undermining No -Wound/Ulcer Outcome Not Healed -Ulcer Cleansing Rinsed/ Irrigated with Saline -Foul Odor after Cleansing No -Bioengineered Tissue No -Offloading No -Treatment Response Procedure Tolerated Well -Debridement - Subq, 1st 20sq cm Yes #21 R aVinci Media Orellana -Time 09:18 -Correct Patient Yes -Correct Side, Site, Position Yes -Correct Procedure Yes -Procedure Performed Yes -Type of Procedure Debridement -Clinical Debridement Subcutaneous -Tissue Removed Subcutaneous -Post Debridement (cm) - Length 3.5 -Post Debridement (cm) - Width 2.5 -Post Debridement (cm) - Depth 0.1 -Total Square (Post) (cm) 8.75 -Area of Debridement (cm) - Length 3.5 -Area of Debridement (cm) - Width 2.5 -Total Square (Area) (cm) 8.75 -Tunneling No -Undermining/Tunneling No -Circular Undermining No -Wound/Ulcer Outcome Not Healed -Ulcer Cleansing Rinsed/ Irrigated with Saline -Foul Odor after Cleansing No -Bioengineered Tissue No -Bleeding Controlled with Pressure -Offloading No -Debridement - Subq, 20sq cm Yes #20 R [employer] sup -Time 09:19 -Correct Patient Yes -Correct Side, Site, Position Yes -Correct Procedure Yes -Procedure Performed Yes -Type of Procedure Debridement -Clinical Debridement Subcutaneous -Tissue Removed Subcutaneous -Post Debridement (cm) - Length 0.8 -Post Debridement (cm) - Width 0.5 -Post Debridement (cm) - Depth 0.1 -Total Square (Post) (cm) 0.40 -Area of Debridement (cm) - Length 0.8 -Area of Debridement (cm) - Width 0.5 -Total Square (Area) (cm) 0.40 -Tunneling No -Undermining/Tunneling No -Circular Undermining No -Wound/Ulcer Outcome Not Healed -Ulcer Cleansing Rinsed/ Irrigated with Saline -Foul Odor after Cleansing No -Bioengineered Tissue No -Bleeding Controlled with Pressure -Offloading No -Debridement - Subq, 1st 20sq cm Yes #11 RIGHT MEDIAL FOOT -Time 09:19 -Correct Patient Yes -Correct Side, Site, Position Yes -Correct Procedure Yes -Procedure Performed Yes -Type of Procedure Debridement -Clinical Debridement Subcutaneous -Post Debridement (cm) - Length 1.8 -Post Debridement (cm) - Width 0.8 -Post Debridement (cm) - Depth 0.2 -Total Square (Post) (cm) 1.44 -Area of Debridement (cm) - Length 1.8 -Area of Debridement (cm) - Width 0.8 -Total Square (Area) (cm) 1.44 -Tunneling No -Undermining/Tunneling No -Circular Undermining No -Wound/Ulcer Outcome Not Healed -Ulcer Cleansing Rinsed/ Irrigated with Saline -Foul Odor after Cleansing No -Bioengineered Tissue No -Bleeding Controlled with Pressure -Offloading No -Treatment Response Procedure Tolerated Well -Debridement - Subq, 1st 20sq cm Yes #6 POSTERIOR LLE -Time 09:19 -Correct Patient Yes -Correct Side, Site, Position Yes -Correct Procedure Yes -Procedure Performed Yes -Type of Procedure Debridement -Clinical Debridement Subcutaneous -Tissue Removed Subcutaneous -Post Debridement (cm) - Length 6.0 -Post Debridement (cm) - Width 1.1 -Post Debridement (cm) - Depth 0.3 -Total Square (Post) (cm) 6.60 -Area of Debridement (cm) - Length 6.0 -Area of Debridement (cm) - Width 1.1 -Total Square (Area) (cm) 6.60 -Tunneling No -Undermining/Tunneling No -Circular Undermining No -Wound/Ulcer Outcome Not Healed -Ulcer Cleansing Rinsed/ Irrigated with Saline -Foul Odor after Cleansing No -Bioengineered Tissue No -Bleeding Controlled with NA -Offloading No -Treatment Response Procedure Tolerated Well -Debridement - Subq, 1st 20sq cm Yes #4 POSTERIOR RLE -Time 09:20 -Correct Patient Yes -Correct Side, Site, Position Yes -Correct Procedure Yes -Procedure Performed Yes -Type of Procedure Debridement -Clinical Debridement Subcutaneous -Post Debridement (cm) - Length 0.2 -Post Debridement (cm) - Width 0.2 -Post Debridement (cm) - Depth 0.1 -Total Square (Post) (cm) 0.04 -Area of Debridement (cm) - Length 0.2 -Area of Debridement (cm) - Width 0.2 -Total Square (Area) (cm) 0.04 -Tunneling No -Undermining/Tunneling No -Circular Undermining No -Wound/Ulcer Outcome Not Healed -Ulcer Cleansing Rinsed/ Irrigated with Saline -Foul Odor after Cleansing No -Bioengineered Tissue No -Bleeding Controlled with Pressure -Offloading No -Treatment Response Procedure Tolerated Well -Debridement - Subq, 1st 20sq cm Yes [See Physician Procedure note for Specifics] Pain Scale: 0-10 Numeric [Pain] -Is Patient Pain Free? Yes WC - Nurse 3 - General Ulcer D/C NN Start: 07/09/20 19:22 Freq: Status: Active Protocol: Activity Type Activity Date Activity User E-Sign Co-Sign Detail Recorded Client Recorded Date Recorded By Document 07/10/20 09:52 RB [id number] 07/10/20 09:58 RB 07/10/20 09:52 Wound Care Nurse 3 [Wound Dressing] 23-right superior achilles -Ulcer Cleansing Rinsed/ Irrigated with Saline -Other Dressing aquacel extra adaptic -Primary Dressing Covered/Secured Dry Gauze & with Roll Gauze, Secured with Tape #22 R Orellana inf -Ulcer Cleansing Rinsed/ Irrigated with Saline -Other Dressing aquacel extra / adaptic -Primary Dressing Covered/Secured Dry Gauze & with Roll Gauze, Secured with Tape #21 R Med Orellana -Ulcer Cleansing Rinsed/ Irrigated with Saline -Other Dressing aquacel extra/ adaptic -Primary Dressing Covered/Secured Dry Gauze & with Roll Gauze, Secured with Tape #20 R med orellana sup -Ulcer Cleansing Rinsed/ Irrigated with Saline -Other Dressing aquacel extra / adaptic -Primary Dressing Covered/Secured Dry Gauze & with Roll Gauze, Secured with Tape #11 RIGHT MEDIAL FOOT -Ulcer Cleansing Rinsed/ Irrigated with Saline -Other Dressing aquacel extra/ adpaitc -Primary Dressing Covered/Secured Dry Gauze & with Roll Gauze, Secured with Tape #6 POSTERIOR LLE -Ulcer Cleansing Rinsed/ Irrigated with Saline -Other Dressing aquacel extra/ adaptic -Primary Dressing Covered/Secured Dry Gauze & with Roll Gauze, Secured with Tape #4 POSTERIOR RLE -Ulcer Cleansing Rinsed/ Irrigated with Saline -Other Dressing aquacel extra/ adaptic -Primary Dressing Covered/Secured Dry Gauze & with Roll Gauze, Secured with Tape [Compression Applied] Right -Compression Wrap Joao Wrap Left -Compression Wrap Joao Wrap [Post Procedure Tolerated] -Treatment Response Procedure Tolerated Well Pain Scale: 0-10 Numeric [Pain] -Is Patient Pain Free? Yes Teaching: Wound Center [Wound Center Education] (Items with an * have Printed Materials Available- Please identify what is given to patient under the Teaching materials given to patient and caregiver Section. Dressing Your Wound -Person Taught Patient,Family -Teaching Method Demonstration -Response to teaching Verbalize understanding WC - Visit Discharge [Visit Discharge Information] -Discharge Condition Stable -Ambulatory Status Ambulatory -Transportation Private Auto -Medication Reconcilliation completed No & provided to patient/care provider -Clinical Summary of Care Provided Yes Musculoskeletal: No Tenderness to Palpation of Joints or Extremities, Muscle Wasting Neurological: - - Lack of normal epicritic sensation Psych/Mental Status: Normal Affect, Appropriate Debridement Note Post-Debridement Measurements/Treatment WC - Nurse 2 - General Ulcer CM Notes Start: 07/09/20 19:22 Freq: Status: Active Protocol: Activity Type Activity Date Activity User E-Sign Co-Sign Detail Recorded Client Recorded Date Recorded By Document 07/10/20 09:16 [id number] 07/10/20 09:25 07/10/20 09:16 Wound Center Nurse 2 23-right superior achilles -Time 09:17 -Correct Patient Yes -Correct Side, Site, Position Yes -Correct Procedure Yes -Procedure Performed Yes -Type of Procedure Debridement -Clinical Debridement Subcutaneous -Tissue Removed Subcutaneous -Post Debridement (cm) - Length 4.2 -Post Debridement (cm) - Width 1.6 -Post Debridement (cm) - Depth 0.4 -Total Square (Post) (cm) 6.72 -Area of Debridement (cm) - Length 4.2 -Area of Debridement (cm) - Width 1.6 -Total Square (Area) (cm) 6.72 -Tunneling No -Undermining/Tunneling No -Circular Undermining No -Wound/Ulcer Outcome Not Healed -Ulcer Cleansing Rinsed/ Irrigated with Saline -Foul Odor after Cleansing No -Bioengineered Tissue No -Treatment Response Procedure Tolerated Well -Debridement - Subq, 1st 20sq cm Yes #22 R Orellana inf -Time 09:17 -Correct Patient Yes -Correct Side, Site, Position Yes -Correct Procedure Yes -Procedure Performed Yes -Type of Procedure Debridement -Clinical Debridement Subcutaneous -Tissue Removed Subcutaneous -Post Debridement (cm) - Length 1.1 -Post Debridement (cm) - Width 0.7 -Post Debridement (cm) - Depth 0.1 -Total Square (Post) (cm) 0.77 -Area of Debridement (cm) - Length 1.1 -Area of Debridement (cm) - Width 0.7 -Total Square (Area) (cm) 0.77 -Tunneling No -Undermining/Tunneling No -Circular Undermining No -Wound/Ulcer Outcome Not Healed -Ulcer Cleansing Rinsed/ Irrigated with Saline -Foul Odor after Cleansing No -Bioengineered Tissue No -Offloading No -Treatment Response Procedure Tolerated Well -Debridement - Subq, 1st 20sq cm Yes #21 R aVinci Media Orellana -Time 09:18 -Correct Patient Yes -Correct Side, Site, Position Yes -Correct Procedure Yes -Procedure Performed Yes -Type of Procedure Debridement -Clinical Debridement Subcutaneous -Tissue Removed Subcutaneous -Post Debridement (cm) - Length 3.5 -Post Debridement (cm) - Width 2.5 -Post Debridement (cm) - Depth 0.1 -Total Square (Post) (cm) 8.75 -Area of Debridement (cm) - Length 3.5 -Area of Debridement (cm) - Width 2.5 -Total Square (Area) (cm) 8.75 -Tunneling No -Undermining/Tunneling No -Circular Undermining No -Wound/Ulcer Outcome Not Healed -Ulcer Cleansing Rinsed/ Irrigated with Saline -Foul Odor after Cleansing No -Bioengineered Tissue No -Bleeding Controlled with Pressure -Offloading No -Debridement - Subq, 1st 20sq cm Yes #20 R [employer] sup -Time 09:19 -Correct Patient Yes -Correct Side, Site, Position Yes -Correct Procedure Yes -Procedure Performed Yes -Type of Procedure Debridement -Clinical Debridement Subcutaneous -Tissue Removed Subcutaneous -Post Debridement (cm) - Length 0.8 -Post Debridement (cm) - Width 0.5 -Post Debridement (cm) - Depth 0.1 -Total Square (Post) (cm) 0.40 -Area of Debridement (cm) - Length 0.8 -Area of Debridement (cm) - Width 0.5 -Total Square (Area) (cm) 0.40 -Tunneling No -Undermining/Tunneling No -Circular Undermining No -Wound/Ulcer Outcome Not Healed -Ulcer Cleansing Rinsed/ Irrigated with Saline -Foul Odor after Cleansing No -Bioengineered Tissue No -Bleeding Controlled with Pressure -Offloading No -Debridement - Subq, 1st 20sq cm Yes #11 RIGHT MEDIAL FOOT -Time 09:19 -Correct Patient Yes -Correct Side, Site, Position Yes -Correct Procedure Yes -Procedure Performed Yes -Type of Procedure Debridement -Clinical Debridement Subcutaneous -Post Debridement (cm) - Length 1.8 -Post Debridement (cm) - Width 0.8 -Post Debridement (cm) - Depth 0.2 -Total Square (Post) (cm) 1.44 -Area of Debridement (cm) - Length 1.8 -Area of Debridement (cm) - Width 0.8 -Total Square (Area) (cm) 1.44 -Tunneling No -Undermining/Tunneling No -Circular Undermining No -Wound/Ulcer Outcome Not Healed -Ulcer Cleansing Rinsed/ Irrigated with Saline -Foul Odor after Cleansing No -Bioengineered Tissue No -Bleeding Controlled with Pressure -Offloading No -Treatment Response Procedure Tolerated Well -Debridement - Subq, 1st 20sq cm Yes #6 POSTERIOR LLE -Time 09:19 -Correct Patient Yes -Correct Side, Site, Position Yes -Correct Procedure Yes -Procedure Performed Yes -Type of Procedure Debridement -Clinical Debridement Subcutaneous -Tissue Removed Subcutaneous -Post Debridement (cm) - Length 6.0 -Post Debridement (cm) - Width 1.1 -Post Debridement (cm) - Depth 0.3 -Total Square (Post) (cm) 6.60 -Area of Debridement (cm) - Length 6.0 -Area of Debridement (cm) - Width 1.1 -Total Square (Area) (cm) 6.60 -Tunneling No -Undermining/Tunneling No -Circular Undermining No -Wound/Ulcer Outcome Not Healed -Ulcer Cleansing Rinsed/ Irrigated with Saline -Foul Odor after Cleansing No -Bioengineered Tissue No -Bleeding Controlled with NA -Offloading No -Treatment Response Procedure Tolerated Well -Debridement - Subq, 1st 20sq cm Yes #4 POSTERIOR RLE -Time 09:20 -Correct Patient Yes -Correct Side, Site, Position Yes -Correct Procedure Yes -Procedure Performed Yes -Type of Procedure Debridement -Clinical Debridement Subcutaneous -Post Debridement (cm) - Length 0.2 -Post Debridement (cm) - Width 0.2 -Post Debridement (cm) - Depth 0.1 -Total Square (Post) (cm) 0.04 -Area of Debridement (cm) - Length 0.2 -Area of Debridement (cm) - Width 0.2 -Total Square (Area) (cm) 0.04 -Tunneling No -Undermining/Tunneling No -Circular Undermining No -Wound/Ulcer Outcome Not Healed -Ulcer Cleansing Rinsed/ Irrigated with Saline -Foul Odor after Cleansing No -Bioengineered Tissue No -Bleeding Controlled with Pressure -Offloading No -Treatment Response Procedure Tolerated Well -Debridement - Subq, 1st 20sq cm Yes Pain Scale: 0-10 Numeric Is Patient Pain Free? Yes WC - Nurse 3 - General Ulcer D/C NN Start: 07/09/20 19:22 Freq: Status: Active Protocol: Activity Type Activity Date Activity User E-Sign Co-Sign Detail Recorded Client Recorded Date Recorded By Document 07/10/20 09:52 RB [id number] 07/10/20 09:58 RB 07/10/20 09:52 Wound Care Nurse 3 23-right superior achilles -Ulcer Cleansing Rinsed/ Irrigated with Saline -Other Dressing aquacel extra adaptic -Primary Dressing Covered/Secured with Dry Gauze & Roll Gauze, Secured with Tape #22 R [place] inf -Ulcer Cleansing Rinsed/ Irrigated with Saline -Other Dressing aquacel extra / adaptic -Primary Dressing Covered/Secured with Dry Gauze & Roll Gauze, Secured with Tape #21 R Med [place] -Ulcer Cleansing Rinsed/ Irrigated with Saline -Other Dressing aquacel extra/ adaptic -Primary Dressing Covered/Secured with Dry Gauze & Roll Gauze, Secured with Tape #20 R med orellana sup -Ulcer Cleansing Rinsed/ Irrigated with Saline -Other Dressing aquacel extra / adaptic -Primary Dressing Covered/Secured with Dry Gauze & Roll Gauze, Secured with Tape #11 RIGHT MEDIAL FOOT -Ulcer Cleansing Rinsed/ Irrigated with Saline -Other Dressing aquacel extra/ adpaitc -Primary Dressing Covered/Secured with Dry Gauze & Roll Gauze, Secured with Tape #6 POSTERIOR LLE -Ulcer Cleansing Rinsed/ Irrigated with Saline -Other Dressing aquacel extra/ adaptic -Primary Dressing Covered/Secured with Dry Gauze & Roll Gauze, Secured with Tape #4 POSTERIOR RLE -Ulcer Cleansing Rinsed/ Irrigated with Saline -Other Dressing aquacel extra/ adaptic -Primary Dressing Covered/Secured with Dry Gauze & Roll Gauze, Secured with Tape Right -Compression Wrap Joao Wrap Left -Compression Wrap Joao Wrap Treatment Response Procedure Tolerated Well Pain Scale: 0-10 Numeric Is Patient Pain Free? Yes Teaching: Wound Center Dressing Your Wound -Person Taught Patient,Family -Teaching Method Demonstration -Response to teaching Verbalize understanding WC - Visit Discharge Discharge Condition Stable Ambulatory Status Ambulatory Transportation Private Auto Medication Reconcilliation completed & No provided to patient/care provider Clinical Summary of Care Provided Yes Wound debrided: plantar foot, posterior leg Laterality: Right Wound Grade/Stage: grade 3 Type of Debridement: Excisional debridement Anesthesia Used: 5% Lidocaine Gel Depth: in the subcutaneous layer Percentage of wound debrided: 100 Instrument Used: #15 blade Tissue Removed: fibrous, devitalized subcutaneous, biofilm, slough Severity: Fat Layer Exposed Amount of bleeding with debridement: Mild Bleeding Controlled with: Pressure Patient tolerated procedure well - Additional Wound Wound debrided: anterior leg Laterality: Right Wound Grade/Stage: grade 1 Type of Debridement: Excisional debridement Anesthesia Used: 5% Lidocaine Gel Depth: in the subcutaneous layer Percentage of wound debrided: 100 Instrument Used: #15 blade Tissue Removed: fibrous, devitalized subcutaneous, biofilm, slough Severity: Fat Layer Exposed Amount of bleeding with debridement: Mild Bleeding Controlled with: Pressure Patient tolerated procedure: Patient tolerated procedure well - Additional Wound Wound debrided: posterior leg Laterality: Left Wound Grade/Stage: grade 2 Type of Debridement: Excisional debridement Anesthesia Used: 5% Lidocaine Gel Depth: in the subcutaneous layer Percentage of wound debrided: 100 Instrument Used: #15 blade Tissue Removed: fibrous, devitalized subcutaneous, biofilm, slough Severity: Fat Layer Exposed Amount of bleeding with debridement: Mild Bleeding Controlled with: Pressure Patient tolerated procedure: Patient tolerated procedure well Assessment/Plan Active Problems (Last Updated 09/28/18 @ 12:41 by Geraldine Steele) Ulcer of right foot with fat layer exposed (Chronic) Chronic Also new anterior orellana and posterior leg and proximal orientation 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 -Right posterior leg ulcer grade 1, no infection. -right anterior leg ulcer grade 1, no infection. -right anterior proximal leg ulcer grade 1, no infection. -Prior status post operating room excisional subcutaneous and tendon debridements to bilateral legs and right foot with additional application of advanced wound healing products to bilateral posterior lower legs--no infection and stable today -improvement noted. 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 -previous bilateral leg fasciotomies and debridements and irrigation performed previously now with right and left leg ulcers with fat and tendon layers exposed. -diabetic neuropathy. -malnutrition suspected. 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 -delayed healing. -gait impairment and fall risk. -other comorbidities. -Continued smoking habits Plan: I reviewed and discussed his case today. Debridement was performed to all sites as noted in the nursing panel in a subcutaneous excisional manner. Compliance was reviewed while he is outside he needs to wear a cam walker to avoid these types of injuries. He also reports he wears his compression less than 50% of the time and he was advised to improve compliance because he is developing new wounds due to his increased edema. To change daily with [employer] and Adaptic. It is noted he started taking Metanx for neuropathy symptoms and is doing well so far; he was advised to continue. He actually feels some increased discomfort associated with his improvement in sensation and he was advised that this is normal. We will continue to monitor his progress and hopefully the discomfort will dissipate as he continues to heal his nerve fibers. He was reassured no local or systemic signs of illness is suspected today. To continue increased protein intake with nutritional supplementation. To continue glycemic control. He had a previous arterial Doppler scheduled with Dr. Morgan's staff on August 02, 2018 and overall perfusion was confirmed; additional intervention or workup was not recommended. It is also noted that he did have venous Doppler performed with reflux evaluation. He did not have evidence of deep venous thrombosis or venous insufficiency at that time; the vessels were compressible. I recommend he sustained from smoking and alcohol activities to optimize healing as well. Smoking cessation was encouraged. Prior workup summary: His workup for vasculitis and underlying autoimmune disorder has been completed. A punch biopsy was sent during his last surgical intervention on June 10 and this demonstrated inflammatory changes without malignancy. He had initial screening labs and so far he has a negative RA titer, HL of the 27, KEVIN, anti-CCP, and rheumatoid factor. Several his antibody screenings were not reportable. Hyperbaric oxygen therapy was recommended and it is noted his ejection fraction was most recently 50%. He refuses at this time. . I answered his questions. To return to the wound healing center in 2 week. Due to coronavirus pandemic, reduced in person visits are offered. To call sooner if he has any questions or concerns. He will return in two weeks for debridement. . Quality measures reviewed as the following: Updated today: Medication and allergy reconciliation, pain status and follow-up plan. updated 01-10-2020- he denies falls this past year. Reviewed on 11-29-2019: up-to-date pneumonia vaccination status, he has not up-to-date influenza immunization performed in 09/2019, he does have a living will on file. He is a smoker and smoking cessation was reviewed. He does have elevated blood pressure at or above 120/80 mmHg and also elevated body mass index. For these issues I recommend he follows up with his primary care physician as scheduled. He was counseled on the importance of diet and exercise as well. Quality measures reviewed as the following: Updated today: Medication and allergy reconciliation, pain status and follow-up plan. Reviewed on 11-29-2019: up-to-date pneumonia vaccination status, he has not up-to-date influenza immunization performed in 09/2019, he does have a living will on file. He is a smoker and smoking cessation was reviewed. He does have elevated blood pressure at or above 120/80 mmHg and also elevated body mass index. For these issues I recommend he follows up with his primary care physician as scheduled. He was counseled on the importance of diet and exercise as well.
== END 2020-07-22 23:59 ==
LOC: WC 08:30
PROVIDERS: Family Provider Family Medicine; PCP Family Medicine; Visit Provider Podiatrist
DX: L97.512 Non-pressure chronic ulcer of other part of right foot with fat layer exposed (principal); E11.42 Type 2 diabetes mellitus with diabetic polyneuropathy; I77.6 Arteritis, unspecified; L97.922 Non-pressure chronic ulcer of unspecified part of left lower leg with fat layer exposed; R60.0 Localized edema; L97.912 Non-pressure chronic ulcer of unspecified part of right lower leg with fat layer exposed; F17.200 Nicotine dependence, unspecified, uncomplicated; E11.40 Type 2 diabetes mellitus with diabetic neuropathy, unspecified; Z91.81 History of falling
CPT/HCPCS: 11042; 11045

== ENCOUNTER 2020-08-21 08:15 | Outpatient (RCR) | payer MEDICARE, SELFPAY ==
[2020-07-23 00:27] VITALS: BP 126/91; PULSE 105; RESP 18; TEMP 35.5
[2020-08-07 08:42] VITALS: BP 124/83; PULSE 106; RESP 18; TEMP 35.4; BMI 32.3
--- NOTE | 2020-08-07 10:07 | PN.PCM_ITS ---
(1) Fall Status: Acute Current Visit: Yes Qualifiers: Encounter type: sequela Qualified Code(s): W19.XXXS - Unspecified fall, sequela Code(s): W19.XXXA - Unspecified fall, initial encounter (2) Non-pressure chronic ulcer of other part of right foot with fat layer exposed Status: Chronic Current Visit: Yes Code(s): L97.512 - Non-pressure chronic ulcer of other part of right foot with fat layer exposed Comment: chronic arch, new hallux and 5th toe (3) Ulcer of right lower extremity with fat layer exposed Status: Chronic Current Visit: Yes Code(s): L97.912 - Non-pressure chronic ulcer of unspecified part of right lower leg with fat layer exposed (4) Type 2 diabetes mellitus with diabetic polyneuropathy Status: Chronic Current Visit: Yes Code(s): E11.42 - Type 2 diabetes mellitus with diabetic polyneuropathy (5) Delayed wound healing Status: Chronic Current Visit: Yes Code(s): T14.8XXD - Other injury of unspecified body region, subsequent encounter (6) Ulcer of left lower extremity with fat layer exposed Status: Chronic Current Visit: Yes Code(s): L97.922 - Non-pressure chronic ulcer of unspecified part of left lower leg with fat layer exposed (7) Localized edema Status: Chronic Current Visit: Yes Code(s): R60.0 - Localized edema (8) Malnutrition Status: Chronic Current Visit: Yes Code(s): E46 - Unspecified protein-omar orie malnutrition Type of Wound Date of Service: 08/07/20 Chief Complaint: right and left Leg ulcers and right foot ulcer with new l ocations History of Wound: Mr. Arguello is a 65-year-old male with multiple comorbidities follows up for delayed healing ulcers to the right foot as well as bilateral legs. He denies chills, fever, nausea, or vomiting. He denies odor or redness. He denies pain. He changes the dressings as advised with Adaptic and Aquacel Ag. He is with his today. His reports he has been falling more frequently. He is fallen twice since his last visit which resulted in new ulcers to his right foot, right leg, left leg, left knee. He was seen by his primary care physician, Dr. Sparks however this following issue is not specifically reviewed. Progress of Wound: stable stable prior ulcers. Multiple new ulcers - Physical Exam Vital Signs Temp Pulse Resp BP 95.8 F L 106 H 18 124/83 H 08/07/20 08:42 08/07/20 08:42 08/07/20 08:42 08/07/20 08:42 General: Alert, Oriented x3, Cooperative, No apparent distress Extremities: No cyanosis, Capillary Refill Less than 3 Seconds, No Calf Tenderness, Diminished Peripheral Pulses, Edema - Mild bilateral lower extremities Skin: Ulcer/ Wound - No purulence, erythema, streaking, odor, infection. New skin discontinuity to medial right forefoot, right anterior leg, left anterior leg, and left knee just proximal to the tibial tuberosity with granular fibrous bases. His skin is atrophic and hairless. There is no deep tissue or tendon exposed today bilateral lower extremities Wound Measurements and Assessment WC - Nurse 1 - General Ulcer Measurement Start: 08/03/20 10:48 Freq: Status: Active Protocol: Activity Type Activity Date Activity User E-Sign Co-Sign Detail Recorded Client Recorded Date Recorded By Document 08/07/20 08:42 DL [id number] 08/07/20 09:02 DL 08/07/20 08:42 Wound Center Nurse 1 [Ulcer Assessment] #24 L Knee -Current Size (cm) - Length 1.5 -Current Size (cm) - Width 2 -Current Size (cm) - Depth 0.4 -Total Square Cm 3.0 -Photo Taken Yes -Exudate Amt Small -Exudate Type Serosanguineous -Wound Margin Thickened -Granulation Amt None Present (0 %) -Necrosis Amt Large (67-100%) -Necrotic Tissue Type Adherent Slough -Structure Exposed N/A -Texture (Lisa-wound Skin Appearance) Scarring -Moisture (Lisa-wound Skin Appearance Dry/Scaly ) -Color (Lisa-wound Skin Appearance) Hemosiderin Staining -Temperature (Lisa-wound Skin No Abnormality Appearance) (Pt Warm) -Tenderness on Palpation (Lisa-wound No Skin Appearance) -Ulcer Cleansing Wound Cleanser -Foul Odor after Cleansing No -Anesthetic Used 4% Lidocaine Solution 23-right superior achilles -Current Size (cm) - Length 3.5 -Current Size (cm) - Width 1.3 -Current Size (cm) - Depth 0.3 -Total Square Cm 4.55 -Photo Taken No -Exudate Amt Small -Exudate Type Serosanguineous -Wound Margin Thickened & Rolled Under -Granulation Amt Medium (34-66%) -Granulation Quality Octa -Necrosis Amt Medium (34-66%) -Necrotic Tissue Type Adherent Slough -Structure Exposed N/A -Texture (Lisa-wound Skin Appearance) Scarring -Moisture (Lisa-wound Skin Appearance Dry/Scaly ) -Color (Lisa-wound Skin Appearance) Hemosiderin Staining -Temperature (Lisa-wound Skin No Abnormality Appearance) (Pt Warm) -Ulcer Cleansing Wound Cleanser -Foul Odor after Cleansing No -Anesthetic Used 4% Lidocaine Solution #22 R [place] inf -Current Size (cm) - Length 0.5 -Current Size (cm) - Width 0.5 -Current Size (cm) - Depth 0.2 -Total Square Cm 0.25 -Photo Taken No -Exudate Amt Small -Exudate Type Serosanguineous -Wound Margin Distinct, Outline Attached -Granulation Amt Small (1-33%) -Granulation Quality Octa,Red -Necrosis Amt Small (1-33%) -Necrotic Tissue Type Adherent Slough -Structure Exposed N/A -Texture (Lisa-wound Skin Appearance) Scarring -Moisture (Lisa-wound Skin Appearance Dry/Scaly ) -Color (Lisa-wound Skin Appearance) Hemosiderin Staining -Temperature (Lisa-wound Skin No Abnormality Appearance) (Pt Warm) -Tenderness on Palpation (Lisa-wound No Skin Appearance) -Ulcer Cleansing Wound Cleanser -Foul Odor after Cleansing No -Anesthetic Used 4% Lidocaine Solution #21 R Med Orellana -Current Size (cm) - Length 2.7 -Current Size (cm) - Width 2 -Current Size (cm) - Depth 0.1 -Total Square Cm 5.4 -Photo Taken No -Exudate Amt Small -Exudate Type Serosanguineous -Wound Margin Thickened -Granulation Amt Medium (34-66%) -Granulation Quality Red -Necrosis Amt Medium (34-66%) -Necrotic Tissue Type Adherent Slough -Structure Exposed N/A -Texture (Lisa-wound Skin Appearance) Scarring -Moisture (Lisa-wound Skin Appearance Dry/Scaly ) -Color (Lisa-wound Skin Appearance) Hemosiderin Staining -Temperature (Lisa-wound Skin No Abnormality Appearance) (Pt Warm) -Tenderness on Palpation (Lisa-wound No Skin Appearance) -Ulcer Cleansing Wound Cleanser -Foul Odor after Cleansing No -Anesthetic Used 4% Lidocaine Solution #20 R med orellana sup -Current Size (cm) - Length 1.3 -Current Size (cm) - Width 1.2 -Current Size (cm) - Depth 0.1 -Total Square Cm 1.56 -Photo Taken No -Exudate Amt None Present -Wound Margin Distinct, Outline Attached -Granulation Amt Medium (34-66%) -Granulation Quality Red -Necrosis Amt Medium (34-66%) -Necrotic Tissue Type Adherent Slough -Structure Exposed N/A -Texture (Lisa-wound Skin Appearance) Scarring -Moisture (Lisa-wound Skin Appearance Dry/Scaly ) -Color (Lisa-wound Skin Appearance) Hemosiderin Staining -Temperature (Lisa-wound Skin No Abnormality Appearance) (Pt Warm) -Tenderness on Palpation (Lisa-wound No Skin Appearance) -Ulcer Cleansing Wound Cleanser -Foul Odor after Cleansing No -Anesthetic Used 4% Lidocaine Solution #11 RIGHT MEDIAL FOOT -Current Size (cm) - Length 2 -Current Size (cm) - Width 0.8 -Current Size (cm) - Depth 0.3 -Total Square Cm 1.6 -Photo Taken No -Exudate Amt Small -Exudate Type Serosanguineous -Wound Margin Thickened -Granulation Amt Medium (34-66%) -Granulation Quality Red -Necrosis Amt Medium (34-66%) -Necrotic Tissue Type Adherent Slough -Structure Exposed Fat Layer Exposed -Texture (Lisa-wound Skin Appearance) Scarring -Moisture (Lisa-wound Skin Appearance Dry/Scaly ) -Color (Lisa-wound Skin Appearance) Hemosiderin Staining -Temperature (Lisa-wound Skin No Abnormality Appearance) (Pt Warm) -Tenderness on Palpation (Lisa-wound No Skin Appearance) -Ulcer Cleansing Wound Cleanser -Foul Odor after Cleansing No -Anesthetic Used 4% Lidocaine Solution #6 POSTERIOR LLE -Current Size (cm) - Length 6 -Current Size (cm) - Width 1.3 -Current Size (cm) - Depth 0.4 -Total Square Cm 7.8 -Photo Taken No -Exudate Amt Small -Exudate Type Serosanguineous -Wound Margin Thickened -Granulation Amt Medium (34-66%) -Granulation Quality Red -Necrosis Amt Medium (34-66%) -Necrotic Tissue Type Adherent Slough -Structure Exposed N/A -Texture (Lisa-wound Skin Appearance) Scarring -Moisture (Lisa-wound Skin Appearance Dry/Scaly ) -Color (Lisa-wound Skin Appearance) Hemosiderin Staining -Temperature (Lisa-wound Skin No Abnormality Appearance) (Pt Warm) -Tenderness on Palpation (Lisa-wound No Skin Appearance) -Ulcer Cleansing Wound Cleanser -Foul Odor after Cleansing No -Anesthetic Used 4% Lidocaine Solution #4 POSTERIOR RLE -Current Size (cm) - Length 0.5 -Current Size (cm) - Width 1 -Current Size (cm) - Depth 0.3 -Total Square Cm 0.5 -Photo Taken No -Exudate Amt Small -Exudate Type Serosanguineous -Wound Margin Thickened -Granulation Amt Medium (34-66%) -Granulation Quality Red -Necrosis Amt Medium (34-66%) -Necrotic Tissue Type Adherent Slough -Structure Exposed N/A -Texture (Lisa-wound Skin Appearance) Scarring -Moisture (Lisa-wound Skin Appearance Dry/Scaly ) -Color (Lisa-wound Skin Appearance) Hemosiderin Staining -Temperature (Lisa-wound Skin No Abnormality Appearance) (Pt Warm) -Tenderness on Palpation (Lisa-wound No Skin Appearance) -Ulcer Cleansing Wound Cleanser -Foul Odor after Cleansing No -Anesthetic Used 4% Lidocaine Solution WC - Nurse 2 - General Ulcer CM Notes Start: 08/03/20 10:48 Freq: Status: Active Protocol: Activity Type Activity Date Activity User E-Sign Co-Sign Detail Recorded Client Recorded Date Recorded By Document 08/07/20 09:20 JAMAL [id number] 08/07/20 09:28 JAMAL 08/07/20 09:20 Wound Center Nurse 2 [Procedure/Treatment] #24 L Knee -Correct Patient No -Correct Side, Site, Position No -Correct Procedure No -Procedure Performed No -Tunneling No -Undermining/Tunneling No -Circular Undermining No -Wound/Ulcer Outcome Not Healed 23-right superior achilles -Time 09:21 -Correct Patient Yes -Correct Side, Site, Position Yes -Correct Procedure Yes -Procedure Performed Yes -Type of Procedure Debridement -Clinical Debridement Subcutaneous -Tissue Removed Subcutaneous -Post Debridement (cm) - Length 3.5 -Post Debridement (cm) - Width 1.4 -Post Debridement (cm) - Depth 0.3 -Total Square (Post) (cm) 4.90 -Area of Debridement (cm) - Length 3.5 -Area of Debridement (cm) - Width 1.4 -Total Square (Area) (cm) 4.90 -Tunneling No -Undermining/Tunneling No -Circular Undermining No -Wound/Ulcer Outcome Not Healed -Ulcer Cleansing Rinsed/ Irrigated with Saline -Foul Odor after Cleansing No -Bioengineered Tissue No -Bleeding Controlled with Pressure -Offloading No -Treatment Response Procedure Tolerated Well -Debridement - Subq, 1st 20sq cm Yes #22 R Orellana inf -Time 09:22 -Correct Patient Yes -Correct Side, Site, Position Yes -Correct Procedure Yes -Procedure Performed Yes -Type of Procedure Debridement -Clinical Debridement Subcutaneous -Tissue Removed Subcutaneous -Post Debridement (cm) - Length 0.6 -Post Debridement (cm) - Width 0.6 -Post Debridement (cm) - Depth 0.1 -Total Square (Post) (cm) 0.36 -Area of Debridement (cm) - Length 0.6 -Area of Debridement (cm) - Width 0.6 -Total Square (Area) (cm) 0.36 -Tunneling No -Undermining/Tunneling No -Circular Undermining No -Wound/Ulcer Outcome Not Healed -Ulcer Cleansing Rinsed/ Irrigated with Saline -Foul Odor after Cleansing No -Bioengineered Tissue No -Bleeding Controlled with Pressure -Offloading No -Treatment Response Procedure Tolerated Well -Debridement - Subq, 1st 20sq cm No #21 R Med Orellana -Time 09:23 -Correct Patient Yes -Correct Side, Site, Position Yes -Correct Procedure Yes -Procedure Performed Yes -Type of Procedure Debridement -Clinical Debridement Subcutaneous -Tissue Removed Subcutaneous -Post Debridement (cm) - Length 2.8 -Post Debridement (cm) - Width 2.0 -Post Debridement (cm) - Depth 0.1 -Total Square (Post) (cm) 5.60 -Area of Debridement (cm) - Length 2.8 -Area of Debridement (cm) - Width 2.0 -Total Square (Area) (cm) 5.60 -Tunneling No -Undermining/Tunneling No -Circular Undermining No -Wound/Ulcer Outcome Not Healed -Ulcer Cleansing Rinsed/ Irrigated with Saline -Foul Odor after Cleansing No -Bioengineered Tissue No -Bleeding Controlled with Pressure -Offloading No -Treatment Response Procedure Tolerated Well -Debridement - Subq, 1st 20sq cm No #20 R med orellana sup -Time 09:25 -Correct Patient Yes -Correct Side, Site, Position Yes -Correct Procedure Yes -Procedure Performed Yes -Type of Procedure Debridement -Clinical Debridement Subcutaneous -Tissue Removed Subcutaneous -Post Debridement (cm) - Length 1.4 -Post Debridement (cm) - Width 1.2 -Post Debridement (cm) - Depth 0.1 -Total Square (Post) (cm) 1.68 -Area of Debridement (cm) - Length 1.4 -Area of Debridement (cm) - Width 1.2 -Total Square (Area) (cm) 1.68 -Tunneling No -Undermining/Tunneling No -Circular Undermining No -Wound/Ulcer Outcome Not Healed -Ulcer Cleansing Rinsed/ Irrigated with Saline -Foul Odor after Cleansing No -Bioengineered Tissue No -Bleeding Controlled with Pressure -Offloading No -Treatment Response Procedure Tolerated Well -Debridement - Subq, 20sq cm No #11 RIGHT MEDIAL FOOT -Time 09:26 -Correct Patient Yes -Correct Side, Site, Position Yes -Procedure Performed Yes -Type of Procedure Debridement -Clinical Debridement Subcutaneous -Tissue Removed Subcutaneous -Post Debridement (cm) - Length 2.1 -Post Debridement (cm) - Width 0.8 -Post Debridement (cm) - Depth 0.3 -Total Square (Post) (cm) 1.68 -Area of Debridement (cm) - Length 2.1 -Area of Debridement (cm) - Width 0.8 -Total Square (Area) (cm) 1.68 -Tunneling No -Undermining/Tunneling No -Circular Undermining No -Wound/Ulcer Outcome Not Healed -Ulcer Cleansing Rinsed/ Irrigated with Saline -Foul Odor after Cleansing No -Bioengineered Tissue No -Bleeding Controlled with Pressure -Offloading No -Treatment Response Procedure Tolerated Well -Debridement - Subq, 1st 20sq cm No #6 POSTERIOR LLE -Time 09:26 -Correct Patient Yes -Correct Side, Site, Position Yes -Correct Procedure Yes -Procedure Performed Yes -Type of Procedure Debridement -Clinical Debridement Subcutaneous -Tissue Removed Subcutaneous -Post Debridement (cm) - Length 6.0 -Post Debridement (cm) - Width 1.4 -Post Debridement (cm) - Depth 0.4 -Total Square (Post) (cm) 8.40 -Area of Debridement (cm) - Length 6.0 -Area of Debridement (cm) - Width 1.4 -Total Square (Area) (cm) 8.40 -Tunneling No -Undermining/Tunneling No -Circular Undermining No -Wound/Ulcer Outcome Not Healed -Ulcer Cleansing Rinsed/ Irrigated with Saline -Foul Odor after Cleansing No -Bioengineered Tissue No -Bleeding Controlled with Pressure -Offloading No -Type of Offloading Surgical Shoe -Treatment Response Procedure Tolerated Well -Debridement - Subq, 1st 20sq cm No #4 POSTERIOR RLE -Time 09:27 -Correct Patient Yes -Correct Side, Site, Position Yes -Correct Procedure Yes -Procedure Performed Yes -Type of Procedure Debridement -Clinical Debridement Subcutaneous -Tissue Removed Subcutaneous -Post Debridement (cm) - Length 0.6 -Post Debridement (cm) - Width 1 -Post Debridement (cm) - Depth 0.3 -Total Square (Post) (cm) 0.6 -Area of Debridement (cm) - Length 0.6 -Area of Debridement (cm) - Width 1 -Total Square (Area) (cm) 0.6 -Tunneling No -Undermining/Tunneling No -Circular Undermining No -Wound/Ulcer Outcome Not Healed -Ulcer Cleansing Rinsed/ Irrigated with Saline -Foul Odor after Cleansing No -Bioengineered Tissue No -Bleeding Controlled with Pressure -Offloading No -Treatment Response Procedure Tolerated Well -Debridement - Subq, 1st 20sq cm No [See Physician Procedure note for Specifics] Pain Scale: 0-10 Numeric [Pain] -Is Patient Pain Free? Yes Musculoskeletal: No Tenderness to Palpation of Joints or Extremities, Muscle Wasting, - - Ray resection right foot stable and healed Neurological: - - Lack of normal epicritic sensation Psych/Mental Status: Normal Affect, Appropriate Debridement Note Post-Debridement Measurements/Treatment WC - Nurse 2 - General Ulcer CM Notes Start: 08/03/20 10:48 Freq: Status: Active Protocol: Activity Type Activity Date Activity User E-Sign Co-Sign Detail Recorded Client Recorded Date Recorded By Document 08/07/20 09:20 JAMAL [id number] 08/07/20 09:28 JAMAL 08/07/20 09:20 Wound Center Nurse 2 #24 L Knee -Correct Patient No -Correct Side, Site, Position No -Correct Procedure No -Procedure Performed No -Tunneling No -Undermining/Tunneling No -Circular Undermining No -Wound/Ulcer Outcome Not Healed 23-right superior achilles -Time 09:21 -Correct Patient Yes -Correct Side, Site, Position Yes -Correct Procedure Yes -Procedure Performed Yes -Type of Procedure Debridement -Clinical Debridement Subcutaneous -Tissue Removed Subcutaneous -Post Debridement (cm) - Length 3.5 -Post Debridement (cm) - Width 1.4 -Post Debridement (cm) - Depth 0.3 -Total Square (Post) (cm) 4.90 -Area of Debridement (cm) - Length 3.5 -Area of Debridement (cm) - Width 1.4 -Total Square (Area) (cm) 4.90 -Tunneling No -Undermining/Tunneling No -Circular Undermining No -Wound/Ulcer Outcome Not Healed -Ulcer Cleansing Rinsed/ Irrigated with Saline -Foul Odor after Cleansing No -Bioengineered Tissue No -Bleeding Controlled with Pressure -Offloading No -Treatment Response Procedure Tolerated Well -Debridement - Subq, 1st 20sq cm Yes #22 R Orellana inf -Time 09:22 -Correct Patient Yes -Correct Side, Site, Position Yes -Correct Procedure Yes -Procedure Performed Yes -Type of Procedure Debridement -Clinical Debridement Subcutaneous -Tissue Removed Subcutaneous -Post Debridement (cm) - Length 0.6 -Post Debridement (cm) - Width 0.6 -Post Debridement (cm) - Depth 0.1 -Total Square (Post) (cm) 0.36 -Area of Debridement (cm) - Length 0.6 -Area of Debridement (cm) - Width 0.6 -Total Square (Area) (cm) 0.36 -Tunneling No -Undermining/Tunneling No -Circular Undermining No -Wound/Ulcer Outcome Not Healed -Ulcer Cleansing Rinsed/ Irrigated with Saline -Foul Odor after Cleansing No -Bioengineered Tissue No -Bleeding Controlled with Pressure -Offloading No -Treatment Response Procedure Tolerated Well -Debridement - Subq, 1st 20sq cm No #21 R [employer] Orellana -Time 09:23 -Correct Patient Yes -Correct Side, Site, Position Yes -Correct Procedure Yes -Procedure Performed Yes -Type of Procedure Debridement -Clinical Debridement Subcutaneous -Tissue Removed Subcutaneous -Post Debridement (cm) - Length 2.8 -Post Debridement (cm) - Width 2.0 -Post Debridement (cm) - Depth 0.1 -Total Square (Post) (cm) 5.60 -Area of Debridement (cm) - Length 2.8 -Area of Debridement (cm) - Width 2.0 -Total Square (Area) (cm) 5.60 -Tunneling No -Undermining/Tunneling No -Circular Undermining No -Wound/Ulcer Outcome Not Healed -Ulcer Cleansing Rinsed/ Irrigated with Saline -Foul Odor after Cleansing No -Bioengineered Tissue No -Bleeding Controlled with Pressure -Offloading No -Treatment Response Procedure Tolerated Well -Debridement - Subq, 1st 20sq cm No #20 R med orellana sup -Time 09:25 -Correct Patient Yes -Correct Side, Site, Position Yes -Correct Procedure Yes -Procedure Performed Yes -Type of Procedure Debridement -Clinical Debridement Subcutaneous -Tissue Removed Subcutaneous -Post Debridement (cm) - Length 1.4 -Post Debridement (cm) - Width 1.2 -Post Debridement (cm) - Depth 0.1 -Total Square (Post) (cm) 1.68 -Area of Debridement (cm) - Length 1.4 -Area of Debridement (cm) - Width 1.2 -Total Square (Area) (cm) 1.68 -Tunneling No -Undermining/Tunneling No -Circular Undermining No -Wound/Ulcer Outcome Not Healed -Ulcer Cleansing Rinsed/ Irrigated with Saline -Foul Odor after Cleansing No -Bioengineered Tissue No -Bleeding Controlled with Pressure -Offloading No -Treatment Response Procedure Tolerated Well -Debridement - Subq, 1st 20sq cm No #11 RIGHT MEDIAL FOOT -Time 09:26 -Correct Patient Yes -Correct Side, Site, Position Yes -Procedure Performed Yes -Type of Procedure Debridement -Clinical Debridement Subcutaneous -Tissue Removed Subcutaneous -Post Debridement (cm) - Length 2.1 -Post Debridement (cm) - Width 0.8 -Post Debridement (cm) - Depth 0.3 -Total Square (Post) (cm) 1.68 -Area of Debridement (cm) - Length 2.1 -Area of Debridement (cm) - Width 0.8 -Total Square (Area) (cm) 1.68 -Tunneling No -Undermining/Tunneling No -Circular Undermining No -Wound/Ulcer Outcome Not Healed -Ulcer Cleansing Rinsed/ Irrigated with Saline -Foul Odor after Cleansing No -Bioengineered Tissue No -Bleeding Controlled with Pressure -Offloading No -Treatment Response Procedure Tolerated Well -Debridement - Subq, 1st 20sq cm No #6 POSTERIOR LLE -Time 09:26 -Correct Patient Yes -Correct Side, Site, Position Yes -Correct Procedure Yes -Procedure Performed Yes -Type of Procedure Debridement -Clinical Debridement Subcutaneous -Tissue Removed Subcutaneous -Post Debridement (cm) - Length 6.0 -Post Debridement (cm) - Width 1.4 -Post Debridement (cm) - Depth 0.4 -Total Square (Post) (cm) 8.40 -Area of Debridement (cm) - Length 6.0 -Area of Debridement (cm) - Width 1.4 -Total Square (Area) (cm) 8.40 -Tunneling No -Undermining/Tunneling No -Circular Undermining No -Wound/Ulcer Outcome Not Healed -Ulcer Cleansing Rinsed/ Irrigated with Saline -Foul Odor after Cleansing No -Bioengineered Tissue No -Bleeding Controlled with Pressure -Offloading No -Type of Offloading Surgical Shoe -Treatment Response Procedure Tolerated Well -Debridement - Subq, 20sq cm No #4 POSTERIOR RLE -Time 09:27 -Correct Patient Yes -Correct Side, Site, Position Yes -Correct Procedure Yes -Procedure Performed Yes -Type of Procedure Debridement -Clinical Debridement Subcutaneous -Tissue Removed Subcutaneous -Post Debridement (cm) - Length 0.6 -Post Debridement (cm) - Width 1 -Post Debridement (cm) - Depth 0.3 -Total Square (Post) (cm) 0.6 -Area of Debridement (cm) - Length 0.6 -Area of Debridement (cm) - Width 1 -Total Square (Area) (cm) 0.6 -Tunneling No -Undermining/Tunneling No -Circular Undermining No -Wound/Ulcer Outcome Not Healed -Ulcer Cleansing Rinsed/ Irrigated with Saline -Foul Odor after Cleansing No -Bioengineered Tissue No -Bleeding Controlled with Pressure -Offloading No -Treatment Response Procedure Tolerated Well -Debridement - Subq, 1st 20sq cm No Pain Scale: 0-10 Numeric Is Patient Pain Free? Yes Wound debrided: posterior leg, medial foot Laterality: Right Wound Grade/Stage: grade 3 Type of Debridement: Excisional debridement Anesthesia Used: 5% Lidocaine Gel Depth: in the subcutaneous layer Percentage of wound debrided: 100 Instrument Used: #15 blade Tissue Removed: fibrous, devitalized subcutaneous, biofilm, slough Severity: Fat Layer Exposed Amount of bleeding with debridement: Mild Bleeding Controlled with: Pressure Patient tolerated procedure well - Additional Wound Wound debrided: medial forefoot, anterior leg;medial orellana, med orellana prox, med orellana inferior Laterality: Right Wound Grade/Stage: grade 1 Type of Debridement: Excisional debridement Anesthesia Used: 5% Lidocaine Gel Depth: in the subcutaneous layer Percentage of wound debrided: 100 Instrument Used: #15 blade Tissue Removed: fibrous, devitalized subcutaneous, biofilm, slough Severity: Fat Layer Exposed Amount of bleeding with debridement: Mild Bleeding Controlled with: Pressure Patient tolerated procedure: Patient tolerated procedure well - Additional Wound Wound debrided: posterior leg Laterality: Left Wound Grade/Stage: grade 2 Type of Debridement: Excisional debridement Anesthesia Used: 5% Lidocaine Gel Depth: in the subcutaneous layer Percentage of wound debrided: 100 Instrument Used: #15 blade Tissue Removed: fibrous, devitalized subcutaneous, biofilm, slough Severity: Fat Layer Exposed Amount of bleeding with debridement: Mild Bleeding Controlled with: Pressure Patient tolerated procedure: Patient tolerated procedure well Assessment/Plan Active Problems (Last Updated 09/28/18 @ 12:41 by Geraldine Steele) Non-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) chronic arch, new hallux and 5th toe Fall (Acute) Ulcer of right lower extremity with fat layer exposed (Chronic) Type 2 diabetes mellitus with diabetic polyneuropathy (Chronic) Delayed wound healing (Chronic) Ulcer of left lower extremity with fat layer exposed (Chronic) Localized edema (Chronic) Malnutrition (Chronic) Assessment: -Lower extremity edema, stable. -recent increased falling with new injuries/wounds. -Right posterior leg ulcer grade 1, no infection. -right anterior leg ulcers (medial, superior, anterior, inferior) grade 1, no infection. -right anterior proximal leg ulcer grade 1, no infection. -new left leg ulcer proximal to tibial tuberosity, no infection. -Prior status post operating room excisional subcutaneous and tendon debridements to bilateral legs and right foot with additional application of advanced wound healing products to bilateral posterior lower legs--no infection and stable today -improvement noted. -open second and third ray resection secondary to osteomyelitis in infection and necrotizing fasciitis (right foot ulcer now with fascia and subcu taneous tissue exposed)--remains healed today. -previous bilateral leg fasciotomies and debridements and irrigation performed previously now with right and left leg ulcers with fat and tendon layers exposed. -diabetic neuropathy. -malnutrition suspected. 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 -delayed healing. -gait impairment and fall risk. -other comorbidities. -Continued smoking habits Plan: I reviewed and discussed his case today. Debridement was performed to all sites as noted in the nursing panel in a subcutaneous excisional manner. Compliance was reviewed while he is outside he needs to wear a cam walker to avoid these types of injuries. To change daily with [employer] and Adaptic. It is noted he is taking Metanx for neuropathy symptoms and is doing well so far; he was advised to continue. He was reassured no local or systemic signs of illness is suspected today. To continue increased protein intake with nutritional supplementation. To continue glycemic control. He had a previous arterial Doppler scheduled with Dr. Morgan's staff on August 02, 2018 and overall perfusion was confirmed; additional intervention or workup was not recommended. It is also noted that he did have venous Doppler performed with reflux evaluation. He did not have evidence of deep venous thrombosis or venous insufficiency at that time; the vessels were compressible. I recommend he sustained from smoking and alcohol activities to optimize healing as well. Smoking cessation was encouraged. His recent increase pulse are noted with new wound formation. I am concerned about this and will re-refer him to his primary care physician to review new etiologies of his falling. I also offered physical therapy referral and he defers today. Prior workup summary: His workup for vasculitis and underlying autoimmune disorder has been completed. A punch biopsy was sent during his last surgical intervention on June 10 and this demonstrated inflammatory changes without malignancy. He had initial screening labs and so far he has a negative RA titer, HL of the 27, KEVIN, anti-CCP, and rheumatoid factor. Several his antibody screenings were not reportable. Hyperbaric oxygen therapy was recommended and it is noted his ejection fraction was most recently 50%. He refuses at this time. . I answered his questions. To return to the wound healing center in 2 week. Due to coronavirus pandemic, reduced in person visits are offered. To call sooner if he has any questions or concerns. He will return in two weeks for debridement. . Quality measures reviewed as the following: Updated today: Medication and allergy reconciliation, pain status and follow-up plan. updated 01-10-2020- he denies falls this past year. Reviewed on 11-29-2019: up-to-date pneumonia vaccination status, he has not up-to-date influenza immunization performed in 09/2019, he does have a living will on file. He is a smoker and smoking cessation was reviewed. He does have elevated blood pressure at or above 120/80 mmHg and also elevated body mass index. For these issues I recommend he follows up with his primary care physician as scheduled. He was counseled on the importance of diet and exercise as well. Quality measures reviewed as the following: Updated today: Medication and allergy reconciliation, pain status and follow-up plan. Reviewed on 11-29-2019: up-to-date pneumonia vaccination status, he has not up-to-date influenza immunization performed in 09/2019, he does have a living will on file. He is a smoker and smoking cessation was reviewed. He does have elevated blood pressure at or above 120/80 mmHg and also elevated body mass index. For these issues I recommend he follows up with his primary care physician as scheduled. He was counseled on the importance of diet and exercise as well.
--- NOTE | 2020-08-07 15:54 | WC ---
Spoke to Rianna regarding patient's falls that have occured with the last 3 weeks resulting in multiple new wounds. Rianna states tthat he was last seen 07-23-20 and nothing was mentioned then. She made a note and will let Dr Sparks aware.
[2020-08-21 08:20] VITALS: BP 128/72; PULSE 106; RESP 22; TEMP 35.5; BMI 32.3
[2020-08-21 09:37] VITALS: RESP 18
--- NOTE | 2020-08-21 10:55 | PCM.WC.PN ---
(1) Tear of skin of plantar aspect of right foot Status: Acute Qualifiers: Encounter type: initial encounter Qualified Code(s): S91.311A - Laceration without foreign body, right foot, initial encounter Code(s): S91.311A - Laceration without foreign body, right foot, initial encounter (2) Non-pressure chronic ulcer of other part of right foot with fat layer exposed Status: Chronic Code(s): L97.512 - Non-pressure chronic ulcer of other part of right foot with fat layer exposed Comment: chronic arch, new hallux and 5th toe (3) Ulcer of right lower extremity with fat layer exposed Status: Chronic Code(s): L97.912 - Non-pressure chronic ulcer of unspecified part of right lower leg with fat layer exposed (4) Type 2 diabetes mellitus with diabetic polyneuropathy Status: Chronic Code(s): E11.42 - Type 2 diabetes mellitus with diabetic polyneuropathy (5) Delayed wound healing Status: Chronic Code(s): T14.8XXD - Other injury of unspecified body region, subsequent encounter (6) Ulcer of left lower extremity with fat layer exposed Status: Chronic Code(s): L97.922 - Non-pressure chronic ulcer of unspecified part of left lower leg with fat layer exposed (7) Localized edema Status: Chronic Code(s): R60.0 - Localized edema (8) Malnutrition Status: Chronic Code(s): E46 - Unspecified protein-calorie malnutrition Type of Wound Date of Service: 08/21/20 Chief Complaint: right and left Leg ulcers and right foot ulcer with new locations. New skin injury from this morning right foot History of Wound: Mr. Arguello is a 65-year-old male with multiple comorbidities follows up for delayed healing ulcers to the right foot as well as bilateral legs. He denies chills, fever, nausea, or vomiting. He denies odor or redness. He denies pain. He changes the dressings as advised with Adaptic and Aquacel Ag. He is with his today. His reports he has been falling more frequently. He continues to fall and even sustained a new skin tear this morning while entering the wound center. His right foot is bleeding and he tore the skin. He is recently been reevaluated by his primary care physician for falling also. He relates that he does not wear his protective shoes and was walking into the clinic with a sock again today which is not advised. Progress of Wound: stable stable prior ulcers. New right foot skin tear - Physical Exam Vital Signs Temp Pulse Resp BP 96 F L 106 H 18 128/72 H 08/21/20 08:20 08/21/20 08:20 08/21/20 09:37 08/21/20 08:20 General: Alert, Oriented x3, Cooperative, No apparent distress HEENT: Atraumatic Extremities: No cyanosis, Capillary Refill Less than 3 Seconds, No Calf Tenderness, Diminished Peripheral Pulses, Edema Skin: Ulcer/ Wound - No purulence, erythema, streaking, odor, infection. Adjacent skin is hairless and atrophic. There is no necrosis or bone exposed. There is a new skin tear to the plantar medial first metatarsal head of the right foot which has hematogenous drainage. Upon evaluation under the skin prep there is no exposed deep tissue noted. The skin was left in place as a biological barrier. His skin is atrophic and hairless bilateral lower extremities, - - There is no adjacent bogginess or fluctuance around each ulcer and new skin tear site Wound Measurements and Assessment WC - Nurse 1 - General Ulcer Measurement Start: 08/03/20 10:48 Freq: Status: Active Protocol: Activity Type Activity Date Activity User E-Sign Co-Sign Detail Recorded Client Recorded Date Recorded By Document 08/21/20 08:20 TERE [id number] 08/21/20 08:48 DL 08/21/20 08:20 Wound Center Nurse 1 [Ulcer Assessment] #24 L Knee -Current Size (cm) - Length 1.5 -Current Size (cm) - Width 1.6 -Current Size (cm) - Depth 0.1 -Total Square Cm 2.40 -Photo Taken No -Exudate Amt Small -Exudate Type Serosanguineous -Wound Margin Distinct, Outline Attached -Granulation Amt None Present (0 %) -Necrosis Amt Large (67-100%) -Necrotic Tissue Type Adherent Slough -Structure Exposed N/A -Texture (Lisa-wound Skin Appearance) Scarring -Moisture (Lisa-wound Skin Appearance Dry/Scaly ) -Color (Lisa-wound Skin Appearance) Hemosiderin Staining -Temperature (Lisa-wound Skin No Abnormality Appearance) (Pt Warm) -Tenderness on Palpation (Lisa-wound No Skin Appearance) -Ulcer Cleansing Wound Cleanser -Foul Odor after Cleansing No -Anesthetic Used 4% Lidocaine Solution 23-right superior achilles -Current Size (cm) - Length 3.8 -Current Size (cm) - Width 1.4 -Current Size (cm) - Depth 0.5 -Total Square Cm 5.32 -Photo Taken No -Exudate Amt Small -Exudate Type Serosanguineous -Wound Margin Thickened & Rolled Under -Granulation Amt Medium (34-66%) -Granulation Quality [place],Red -Necrosis Amt Medium (34-66%) -Necrotic Tissue Type Adherent Slough -Structure Exposed N/A -Texture (Lisa-wound Skin Appearance) Scarring -Moisture (Lisa-wound Skin Appearance Dry/Scaly ) -Color (Lisa-wound Skin Appearance) Hemosiderin Staining -Temperature (Lisa-wound Skin No Abnormality Appearance) (Pt Warm) -Tenderness on Palpation (Lisa-wound No Skin Appearance) -Ulcer Cleansing Wound Cleanser -Foul Odor after Cleansing No -Anesthetic Used 4% Lidocaine Solution #22 R [place] inf -Current Size (cm) - Length 0.5 -Current Size (cm) - Width 0.4 -Current Size (cm) - Depth 0.2 -Total Square Cm 0.20 -Photo Taken No -Exudate Amt None Present -Wound Margin Thickened -Granulation Amt None Present (0 %) -Granulation Quality [place] -Necrosis Amt Small (1-33%) -Necrotic Tissue Type Adherent Slough -Texture (Lisa-wound Skin Appearance) Scarring -Moisture (Lisa-wound Skin Appearance Dry/Scaly ) -Color (Lisa-wound Skin Appearance) Hemosiderin Staining -Temperature (Lisa-wound Skin No Abnormality Appearance) (Pt Warm) -Tenderness on Palpation (Lisa-wound No Skin Appearance) -Ulcer Cleansing Wound Cleanser -Foul Odor after Cleansing No -Anesthetic Used 4% Lidocaine Solution #21 R Med [place] -Current Size (cm) - Length 1.8 -Current Size (cm) - Width 1.6 -Current Size (cm) - Depth 0.1 -Total Square Cm 2.88 -Photo Taken No -Exudate Amt Small -Exudate Type Serosanguineous -Wound Margin Thickened -Granulation Amt Medium (34-66%) -Granulation Quality Red -Necrosis Amt Medium (34-66%) -Necrotic Tissue Type Adherent Slough -Structure Exposed N/A -Texture (Lisa-wound Skin Appearance) Scarring -Moisture (Lisa-wound Skin Appearance Dry/Scaly ) -Color (Lisa-wound Skin Appearance) Hemosiderin Staining -Temperature (Lisa-wound Skin No Abnormality Appearance) (Pt Warm) -Tenderness on Palpation (Lisa-wound No Skin Appearance) -Ulcer Cleansing Wound Cleanser -Foul Odor after Cleansing No -Anesthetic Used 4% Lidocaine Solution #20 R med [place] sup -Current Size (cm) - Length 3.3 -Current Size (cm) - Width 1.8 -Current Size (cm) - Depth 0.1 -Total Square Cm 5.94 -Photo Taken No -Exudate Amt Small -Exudate Type Serosanguineous -Granulation Amt Medium (34-66%) -Granulation Quality [place],Red -Necrosis Amt Medium (34-66%) -Necrotic Tissue Type Adherent Slough -Structure Exposed N/A -Texture (Lisa-wound Skin Appearance) Scarring -Moisture (Lisa-wound Skin Appearance Dry/Scaly ) -Color (Lisa-wound Skin Appearance) Hemosiderin Staining -Temperature (Lisa-wound Skin No Abnormality Appearance) (Pt Warm) -Tenderness on Palpation (Lisa-wound No Skin Appearance) -Ulcer Cleansing Wound Cleanser -Foul Odor after Cleansing No -Anesthetic Used 4% Lidocaine Solution #11 RIGHT MEDIAL FOOT -Current Size (cm) - Length 2 -Current Size (cm) - Width 1 -Current Size (cm) - Depth 0.5 -Total Square Cm 2 -Photo Taken No -Exudate Amt Small -Exudate Type Serosanguineous -Wound Margin Thickened -Granulation Amt Medium (34-66%) -Granulation Quality [place] -Necrosis Amt Medium (34-66%) -Necrotic Tissue Type Adherent Slough -Structure Exposed N/A -Texture (Lisa-wound Skin Appearance) Scarring -Moisture (Lisa-wound Skin Appearance Dry/Scaly ) -Color (Lisa-wound Skin Appearance) Hemosiderin Staining -Temperature (Lisa-wound Skin No Abnormality Appearance) (Pt Warm) -Tenderness on Palpation (Lisa-wound No Skin Appearance) -Ulcer Cleansing Wound Cleanser -Foul Odor after Cleansing No -Anesthetic Used 4% Lidocaine Solution #6 POSTERIOR LLE -Current Size (cm) - Length 6.2 -Current Size (cm) - Width 1 -Current Size (cm) - Depth 0.4 -Total Square Cm 6.2 -Photo Taken No -Exudate Amt Small -Exudate Type Serosanguineous -Wound Margin Thickened & Rolled Under -Granulation Amt Medium (34-66%) -Granulation Quality Red -Necrosis Amt Medium (34-66%) -Necrotic Tissue Type Adherent Slough -Structure Exposed N/A -Texture (Lisa-wound Skin Appearance) Scarring -Moisture (Lisa-wound Skin Appearance Dry/Scaly ) -Color (Lisa-wound Skin Appearance) Hemosiderin Staining -Tenderness on Palpation (Lisa-wound No Skin Appearance) -Foul Odor after Cleansing No -Anesthetic Used 4% Lidocaine Solution #4 POSTERIOR RLE -Current Size (cm) - Length 0.8 -Current Size (cm) - Width 1.2 -Current Size (cm) - Depth 0.2 -Total Square Cm 0.96 -Photo Taken No -Exudate Amt None Present -Granulation Amt None Present (0 %) -Granulation Quality [place] -Necrosis Amt Small (1-33%) -Necrotic Tissue Type Adherent Slough -Structure Exposed N/A -Texture (Lisa-wound Skin Appearance) Scarring -Moisture (Lisa-wound Skin Appearance Dry/Scaly ) -Color (Lisa-wound Skin Appearance) Hemosiderin Staining -Temperature (Lisa-wound Skin No Abnormality Appearance) (Pt Warm) -Tenderness on Palpation (Lisa-wound No Skin Appearance) -Ulcer Cleansing Wound Cleanser -Foul Odor after Cleansing No -Anesthetic Used 4% Lidocaine Solution WC - Nurse 2 - General Ulcer CM Notes Start: 08/03/20 10:48 Freq: Status: Active Protocol: Activity Type Activity Date Activity User E-Sign Co-Sign Detail Recorded Client Recorded Date Recorded By Document 08/21/20 09:04 JAMAL [id number] 08/21/20 09:15 JAMAL 08/21/20 09:04 Wound Center Nurse 2 [Procedure/Treatment] #24 L Knee -Correct Patient No -Correct Side, Site, Position No -Correct Procedure No -Wound/Ulcer Outcome Not Healed 23-right superior achilles -Time 09:09 -Correct Patient Yes -Correct Side, Site, Position Yes -Correct Procedure Yes -Procedure Performed Yes -Type of Procedure Debridement -Clinical Debridement Subcutaneous -Tissue Removed Subcutaneous -Post Debridement (cm) - Length 3.8 -Post Debridement (cm) - Width 1.5 -Post Debridement (cm) - Depth 0.4 -Total Square (Post) (cm) 5.70 -Area of Debridement (cm) - Length 3.8 -Area of Debridement (cm) - Width 1.5 -Total Square (Area) (cm) 5.70 -Undermining/Tunneling No -Circular Undermining No -Wound/Ulcer Outcome Not Healed -Ulcer Cleansing Rinsed/ Irrigated with Saline -Foul Odor after Cleansing No -Bioengineered Tissue No -Bleeding Controlled with Pressure -Offloading No -Treatment Response Procedure Tolerated Well -Debridement - Subq, 1st 20sq cm Yes #22 R [place] inf -Time 09:10 -Correct Patient Yes -Correct Side, Site, Position Yes -Correct Procedure Yes -Procedure Performed Yes -Type of Procedure Debridement -Clinical Debridement Subcutaneous -Tissue Removed Subcutaneous -Post Debridement (cm) - Length 0.5 -Post Debridement (cm) - Width 0.5 -Post Debridement (cm) - Depth 0.2 -Total Square (Post) (cm) 0.25 -Area of Debridement (cm) - Length 0.5 -Area of Debridement (cm) - Width 0.5 -Total Square (Area) (cm) 0.25 -Tunneling No -Undermining/Tunneling No -Circular Undermining No -Wound/Ulcer Outcome Not Healed -Ulcer Cleansing Rinsed/ Irrigated with Saline -Foul Odor after Cleansing No -Bioengineered Tissue No -Bleeding Controlled with Pressure -Treatment Response Procedure Tolerated Well -Debridement - Subq, 1st 20sq cm No #21 R TDI [place]line [place] -Time 09:11 -Correct Patient Yes -Correct Side, Site, Position Yes -Correct Procedure Yes -Procedure Performed Yes -Type of Procedure Debridement -Clinical Debridement Subcutaneous -Tissue Removed Subcutaneous -Post Debridement (cm) - Length 1.8 -Post Debridement (cm) - Width 1.6 -Post Debridement (cm) - Depth 0.1 -Total Square (Post) (cm) 2.88 -Area of Debridement (cm) - Length 1.8 -Area of Debridement (cm) - Width 1.6 -Total Square (Area) (cm) 2.88 -Tunneling No -Undermining/Tunneling No -Circular Undermining No -Wound/Ulcer Outcome Not Healed -Ulcer Cleansing Rinsed/ Irrigated with Saline -Foul Odor after Cleansing No -Bioengineered Tissue No -Offloading No -Treatment Response Procedure Tolerated Well -Debridement - Subq, 1st 20sq cm No #20 R med [place] sup -Time 09:11 -Correct Patient Yes -Correct Side, Site, Position Yes -Correct Procedure Yes -Procedure Performed Yes -Type of Procedure Debridement -Clinical Debridement Subcutaneous -Tissue Removed Subcutaneous -Post Debridement (cm) - Length 3.4 -Post Debridement (cm) - Width 1.8 -Post Debridement (cm) - Depth 0.1 -Total Square (Post) (cm) 6.12 -Area of Debridement (cm) - Length 3.4 -Area of Debridement (cm) - Width 1.8 -Total Square (Area) (cm) 6.12 -Undermining/Tunneling No -Circular Undermining No -Wound/Ulcer Outcome Not Healed -Ulcer Cleansing Rinsed/ Irrigated with Saline -Foul Odor after Cleansing No -Bioengineered Tissue No -Bleeding Controlled with Pressure -Offloading No -Treatment Response Procedure Tolerated Well -Debridement - Subq, 20sq cm No #11 RIGHT MEDIAL FOOT -Time 09:06 -Correct Patient Yes -Correct Side, Site, Position Yes -Correct Procedure Yes -Procedure Performed Yes -Type of Procedure Debridement -Clinical Debridement Subcutaneous -Tissue Removed Subcutaneous -Post Debridement (cm) - Length 2.1 -Post Debridement (cm) - Width 1 -Post Debridement (cm) - Depth 0.4 -Total Square (Post) (cm) 2.1 -Area of Debridement (cm) - Length 2.1 -Area of Debridement (cm) - Width 1 -Total Square (Area) (cm) 2.1 -Tunneling No -Undermining/Tunneling No -Circular Undermining No -Wound/Ulcer Outcome Not Healed -Ulcer Cleansing Rinsed/ Irrigated with Saline -Foul Odor after Cleansing No -Bioengineered Tissue No -Bleeding Controlled with Pressure -Offloading No -Treatment Response Procedure Tolerated Well -Debridement - Subq, 1st 20sq cm No #6 POSTERIOR LLE -Time 09:12 -Correct Patient Yes -Correct Side, Site, Position Yes -Correct Procedure Yes -Procedure Performed Yes -Type of Procedure Debridement -Clinical Debridement Subcutaneous -Tissue Removed Subcutaneous -Post Debridement (cm) - Length 6.2 -Post Debridement (cm) - Width 1.1 -Post Debridement (cm) - Depth 0.3 -Total Square (Post) (cm) 6.82 -Area of Debridement (cm) - Length 6.2 -Area of Debridement (cm) - Width 1.1 -Total Square (Area) (cm) 6.82 -Tunneling No -Undermining/Tunneling No -Circular Undermining No -Wound/Ulcer Outcome Not Healed -Ulcer Cleansing Rinsed/ Irrigated with Saline -Foul Odor after Cleansing No -Bioengineered Tissue No -Bleeding Controlled with Pressure -Offloading No -Treatment Response Procedure Tolerated Well -Debridement - Subq, 1st 20sq cm No #4 POSTERIOR RLE -Time 09:13 -Correct Patient Yes -Correct Side, Site, Position Yes -Correct Procedure Yes -Procedure Performed Yes -Type of Procedure Debridement -Clinical Debridement Subcutaneous -Tissue Removed Subcutaneous -Post Debridement (cm) - Length 0.8 -Post Debridement (cm) - Width 1.3 -Post Debridement (cm) - Depth 0.2 -Total Square (Post) (cm) 1.04 -Area of Debridement (cm) - Length 0.8 -Area of Debridement (cm) - Width 1.3 -Total Square (Area) (cm) 1.04 -Tunneling No -Undermining/Tunneling No -Circular Undermining No -Wound/Ulcer Outcome Not Healed -Ulcer Cleansing Rinsed/ Irrigated with Saline -Foul Odor after Cleansing No -Bioengineered Tissue No -Bleeding Controlled with Pressure -Offloading No -Treatment Response Procedure Tolerated Well -Debridement - Subq, 1st 20sq cm No [See Physician Procedure note for Specifics] Pain Scale: 0-10 Numeric [Pain] -Is Patient Pain Free? Yes - Nurse 3 - General Ulcer D/C NN Start: 08/03/20 10:48 Freq: Status: Active Protocol: Activity Type Activity Date Activity User E-Sign Co-Sign Detail Recorded Client Recorded Date Recorded By Document 08/21/20 09:37 [facility] [id number] 08/21/20 09:40 [facility] 08/21/20 09:37 Wound Care Nurse 3 [Wound Dressing] #24 L Knee -Ulcer Cleansing Rinsed/ Irrigated with Saline -Foul Odor after Cleansing No -Primary Dressing Applied Aquacel Extra, NonAdherent Contact Layer -Primary Dressing Covered/Secured Dry Gauze, with Secured with Tape -Aquacel Extra 1 23-right superior achilles -Ulcer Cleansing Rinsed/ Irrigated with Saline -Foul Odor after Cleansing No -Primary Dressing Applied Aquacel Extra, NonAdherent Contact Layer -Primary Dressing Covered/Secured Dry Gauze & with Roll Gauze, Secured with Tape -Aquacel Extra 0 #22 R [place] inf -Ulcer Cleansing Rinsed/ Irrigated with Saline -Foul Odor after Cleansing No -Primary Dressing Applied Aquacel Extra -Primary Dressing Covered/Secured Dry Gauze & with Roll Gauze, Secured with Tape -Aquacel Extra 0 #21 R Med [place] -Ulcer Cleansing Rinsed/ Irrigated with Saline -Foul Odor after Cleansing No -Primary Dressing Applied Aquacel Extra, NonAdherent Contact Layer -Primary Dressing Covered/Secured Dry Gauze & with Roll Gauze, Secured with Tape -Aquacel Extra 0 #20 R med [place] sup -Ulcer Cleansing Rinsed/ Irrigated with Saline -Foul Odor after Cleansing No -Primary Dressing Applied Aquacel Extra, NonAdherent Contact Layer -Primary Dressing Covered/Secured Dry Gauze & with Roll Gauze, Secured with Tape -Aquacel Extra 0 #11 RIGHT MEDIAL FOOT -Ulcer Cleansing Rinsed/ Irrigated with Saline -Foul Odor after Cleansing No -Primary Dressing Applied Aquacel Extra, NonAdherent Contact Layer -Primary Dressing Covered/Secured Dry Gauze & with Roll Gauze, Secured with Tape -Aquacel Extra 0 #6 POSTERIOR LLE -Ulcer Cleansing Rinsed/ Irrigated with Saline -Foul Odor after Cleansing No -Primary Dressing Applied Aquacel Extra, NonAdherent Contact Layer -Primary Dressing Covered/Secured Dry Gauze & with Roll Gauze, Secured with Tape -Aquacel Extra 0 #4 POSTERIOR RLE -Ulcer Cleansing Rinsed/ Irrigated with Saline -Foul Odor after Cleansing No -Primary Dressing Applied Aquacel Extra, NonAdherent Contact Layer -Primary Dressing Covered/Secured Dry Gauze & with Roll Gauze, Secured with Tape -Aquacel Extra 0 [Compression Applied] Left -Compression Wrap Joao Wrap -Other only wears to secure drsg. refuses application from toes to knee Right -Compression Wrap Joao Wrap [Post Procedure Tolerated] -Treatment Response Procedure Tolerated Well Vital Signs [Respirations] -Respiratory Rate (12-18) 18 -Respiratory rate source Observation -Oxygen Delivery Method Room Air Pain Scale: 0-10 Numeric [Pain] -Is Patient Pain Free? Yes WC - Visit Discharge [Visit Discharge Information] -Discharge Condition Stable -Ambulatory Status Wheelchair -Transportation Private Auto -Accompanied by Musculoskeletal: No Tenderness to Palpation of Joints or Extremities, Muscle Wasting, - - Ray resection right foot Neurological: - - Lack of normal epicritic sensation light touch is consistent with neuropathy status Psych/Mental Status: Normal Affect, Appropriate Debridement Note Post-Debridement Measurements/Treatment - Nurse 2 - General Ulcer CM Notes Start: 08/03/20 10:48 Freq: Status: Active Protocol: Activity Type Activity Date Activity User E-Sign Co-Sign Detail Recorded Client Recorded Date Recorded By Document 08/07/20 09:20 [id number] 08/07/20 09:28 Document 08/21/20 09:04 [id number] 08/21/20 09:15 08/07/20 08/21/20 09:20 09:04 Wound Center Nurse 2 #24 L Knee -Correct Patient No No -Correct Side, Site, Position No No -Correct Procedure No No -Procedure Performed No -Tunneling No -Undermining/Tunneling No -Circular Undermining No -Wound/Ulcer Outcome Not Healed Not Healed 23-right superior achilles -Time 09:21 09:09 -Correct Patient Yes Yes -Correct Side, Site, Position Yes Yes -Correct Procedure Yes Yes -Procedure Performed Yes Yes -Type of Procedure Debridement Debridement -Clinical Debridement Subcutaneous Subcutaneous -Tissue Removed Subcutaneous Subcutaneous -Post Debridement (cm) - Length 3.5 3.8 -Post Debridement (cm) - Width 1.4 1.5 -Post Debridement (cm) - Depth 0.3 0.4 -Total Square (Post) (cm) 4.90 5.70 -Area of Debridement (cm) - Length 3.5 3.8 -Area of Debridement (cm) - Width 1.4 1.5 -Total Square (Area) (cm) 4.90 5.70 -Tunneling No -Undermining/Tunneling No No -Circular Undermining No No -Wound/Ulcer Outcome Not Healed Not Healed -Ulcer Cleansing Rinsed/ Rinsed/ Irrigated with Irrigated with Saline Saline -Foul Odor after Cleansing No No -Bioengineered Tissue No No -Bleeding Controlled with Pressure Pressure -Offloading No No -Treatment Response Procedure Procedure Tolerated Well Tolerated Well -Debridement - Subq, 1st 20sq cm Yes Yes #22 R [place] inf -Time 09: 09:10 -Correct Patient Yes Yes -Correct Side, Site, Position Yes Yes -Correct Procedure Yes Yes -Procedure Performed Yes Yes -Type of Procedure Debridement Debridement -Clinical Debridement Subcutaneous Subcutaneous -Tissue Removed Subcutaneous Subcutaneous -Post Debridement (cm) - Length 0.6 0.5 -Post Debridement (cm) - Width 0.6 0.5 -Post Debridement (cm) - Depth 0.1 0.2 -Total Square (Post) (cm) 0.36 0.25 -Area of Debridement (cm) - Length 0.6 0.5 -Area of Debridement (cm) - Width 0.6 0.5 -Total Square (Area) (cm) 0.36 0.25 -Tunneling No No -Undermining/Tunneling No No -Circular Undermining No No -Wound/Ulcer Outcome Not Healed Not Healed -Ulcer Cleansing Rinsed/ Rinsed/ Irrigated with Irrigated with Saline Saline -Foul Odor after Cleansing No No -Bioengineered Tissue No No -Bleeding Controlled with Pressure Pressure -Offloading No -Treatment Response Procedure Procedure Tolerated Well Tolerated Well -Debridement - Subq, 1st 20sq cm No No #21 R Med [place] -Time 09: 09:11 -Correct Patient Yes Yes -Correct Side, Site, Position Yes Yes -Correct Procedure Yes Yes -Procedure Performed Yes Yes -Type of Procedure Debridement Debridement -Clinical Debridement Subcutaneous Subcutaneous -Tissue Removed Subcutaneous Subcutaneous -Post Debridement (cm) - Length 2.8 1.8 -Post Debridement (cm) - Width 2.0 1.6 -Post Debridement (cm) - Depth 0.1 0.1 -Total Square (Post) (cm) 5.60 2.88 -Area of Debridement (cm) - Length 2.8 1.8 -Area of Debridement (cm) - Width 2.0 1.6 -Total Square (Area) (cm) 5.60 2.88 -Tunneling No No -Undermining/Tunneling No No -Circular Undermining No No -Wound/Ulcer Outcome Not Healed Not Healed -Ulcer Cleansing Rinsed/ Rinsed/ Irrigated with Irrigated with Saline Saline -Foul Odor after Cleansing No No -Bioengineered Tissue No No -Bleeding Controlled with Pressure -Offloading No No -Treatment Response Procedure Procedure Tolerated Well Tolerated Well -Debridement - Subq, 1st 20sq cm No No #20 R med [place] sup -Time 09:11 -Correct Patient Yes Yes -Correct Side, Site, Position Yes Yes -Correct Procedure Yes Yes -Procedure Performed Yes Yes -Type of Procedure Debridement Debridement -Clinical Debridement Subcutaneous Subcutaneous -Tissue Removed Subcutaneous Subcutaneous -Post Debridement (cm) - Length 1.4 3.4 -Post Debridement (cm) - Width 1.2 1.8 -Post Debridement (cm) - Depth 0.1 0.1 -Total Square (Post) (cm) 1.68 6.12 -Area of Debridement (cm) - Length 1.4 3.4 -Area of Debridement (cm) - Width 1.2 1.8 -Total Square (Area) (cm) 1.68 6.12 -Tunneling No -Undermining/Tunneling No No -Circular Undermining No No -Wound/Ulcer Outcome Not Healed Not Healed -Ulcer Cleansing Rinsed/ Rinsed/ Irrigated with Irrigated with Saline Saline -Foul Odor after Cleansing No No -Bioengineered Tissue No No -Bleeding Controlled with Pressure Pressure -Offloading No No -Treatment Response Procedure Procedure Tolerated Well Tolerated Well -Debridement - Subq, 1st 20sq cm No No #11 RIGHT MEDIAL FOOT -Time 09:06 -Correct Patient Yes Yes -Correct Side, Site, Position Yes Yes -Correct Procedure Yes -Procedure Performed Yes Yes -Type of Procedure Debridement Debridement -Clinical Debridement Subcutaneous Subcutaneous -Tissue Removed Subcutaneous Subcutaneous -Post Debridement (cm) - Length 2.1 2.1 -Post Debridement (cm) - Width 0.8 1 -Post Debridement (cm) - Depth 0.3 0.4 -Total Square (Post) (cm) 1.68 2.1 -Area of Debridement (cm) - Length 2.1 2.1 -Area of Debridement (cm) - Width 0.8 1 -Total Square (Area) (cm) 1.68 2.1 -Tunneling No No -Undermining/Tunneling No No -Circular Undermining No No -Wound/Ulcer Outcome Not Healed Not Healed -Ulcer Cleansing Rinsed/ Rinsed/ Irrigated with Irrigated with Saline Saline -Foul Odor after Cleansing No No -Bioengineered Tissue No No -Bleeding Controlled with Pressure Pressure -Offloading No No -Treatment Response Procedure Procedure Tolerated Well Tolerated Well -Debridement - Subq, 1st 20sq cm No No #6 POSTERIOR LLE -Time 09:12 -Correct Patient Yes Yes -Correct Side, Site, Position Yes Yes -Correct Procedure Yes Yes -Procedure Performed Yes Yes -Type of Procedure Debridement Debridement -Clinical Debridement Subcutaneous Subcutaneous -Tissue Removed Subcutaneous Subcutaneous -Post Debridement (cm) - Length 6.0 6.2 -Post Debridement (cm) - Width 1.4 1.1 -Post Debridement (cm) - Depth 0.4 0.3 -Total Square (Post) (cm) 8.40 6.82 -Area of Debridement (cm) - Length 6.0 6.2 -Area of Debridement (cm) - Width 1.4 1.1 -Total Square (Area) (cm) 8.40 6.82 -Tunneling No No -Undermining/Tunneling No No -Circular Undermining No No -Wound/Ulcer Outcome Not Healed Not Healed -Ulcer Cleansing Rinsed/ Rinsed/ Irrigated with Irrigated with Saline Saline -Foul Odor after Cleansing No No -Bioengineered Tissue No No -Bleeding Controlled with Pressure Pressure -Offloading No No -Type of Offloading Surgical Shoe -Treatment Response Procedure Procedure Tolerated Well Tolerated Well -Debridement - Subq, 1st 20sq cm No No #4 POSTERIOR RLE -Time 09: 09:13 -Correct Patient Yes Yes -Correct Side, Site, Position Yes Yes -Correct Procedure Yes Yes -Procedure Performed Yes Yes -Type of Procedure Debridement Debridement -Clinical Debridement Subcutaneous Subcutaneous -Tissue Removed Subcutaneous Subcutaneous -Post Debridement (cm) - Length 0.6 0.8 -Post Debridement (cm) - Width 1 1.3 -Post Debridement (cm) - Depth 0.3 0.2 -Total Square (Post) (cm) 0.6 1.04 -Area of Debridement (cm) - Length 0.6 0.8 -Area of Debridement (cm) - Width 1 1.3 -Total Square (Area) (cm) 0.6 1.04 -Tunneling No No -Undermining/Tunneling No No -Circular Undermining No No -Wound/Ulcer Outcome Not Healed Not Healed -Ulcer Cleansing Rinsed/ Rinsed/ Irrigated with Irrigated with Saline Saline -Foul Odor after Cleansing No No -Bioengineered Tissue No No -Bleeding Controlled with Pressure Pressure -Offloading No No -Treatment Response Procedure Procedure Tolerated Well Tolerated Well -Debridement - Subq, 1st 20sq cm No No Pain Scale: 0-10 Numeric Is Patient Pain Free? Yes Yes WC - Nurse 3 - General Ulcer D/C NN Start: 08/03/20 10:48 Freq: Status: Active Protocol: Activity Type Activity Date Activity User E-Sign Co-Sign Detail Recorded Client Recorded Date Recorded By Document 08/07/20 13:40 DL [id number] 08/07/20 13:43 DL Document 08/21/20 09:37 [facility] [id number] 08/21/20 09:40 BM 08/07/20 08/21/20 13:40 09:37 Wound Care Nurse 3 #24 L Knee -Ulcer Cleansing Wound Cleanser Rinsed/ Irrigated with Saline -Foul Odor after Cleansing No No -Primary Dressing Applied Aquacel Extra Aquacel Extra, NonAdherent Contact Layer -Other Dressing adaptic -Primary Dressing Covered/Secured with Dry Gauze & Dry Gauze, Roll Gauze, Secured with Secured with Tape Tape -Aquacel Extra 2 1 23-right superior achilles -Ulcer Cleansing Wound Cleanser Rinsed/ Irrigated with Saline -Foul Odor after Cleansing No No -Primary Dressing Applied Aquacel Extra, NonAdherent Contact Layer -Other Dressing aquacel/adaptic -Primary Dressing Covered/Secured with Dry Gauze & Dry Gauze & Roll Gauze, Roll Gauze, Secured with Secured with Tape Tape -Aquacel Extra 0 #22 R [place] inf -Ulcer Cleansing Wound Cleanser Rinsed/ Irrigated with Saline -Foul Odor after Cleansing No No -Primary Dressing Applied Aquacel Extra -Other Dressing aquacel/adaptic -Primary Dressing Covered/Secured with Dry Gauze & Dry Gauze & Roll Gauze, Roll Gauze, Secured with Secured with Tape Tape -Aquacel Extra 0 #21 R Med [place] -Ulcer Cleansing Wound Cleanser Rinsed/ Irrigated with Saline -Foul Odor after Cleansing No No -Primary Dressing Applied Aquacel Extra, NonAdherent Contact Layer -Other Dressing aquacel -Primary Dressing Covered/Secured with Dry Gauze & Dry Gauze & Roll Gauze, Roll Gauze, Secured with Secured with Tape Tape -Aquacel Extra 0 #20 R med [place] sup -Ulcer Cleansing Wound Cleanser Rinsed/ Irrigated with Saline -Foul Odor after Cleansing No No -Primary Dressing Applied Aquacel Extra, NonAdherent Contact Layer -Other Dressing aquacel -Primary Dressing Covered/Secured with Dry Gauze & Dry Gauze & Roll Gauze, Roll Gauze, Secured with Secured with Tape Tape -Aquacel Extra 0 #11 RIGHT MEDIAL FOOT -Ulcer Cleansing Wound Cleanser Rinsed/ Irrigated with Saline -Foul Odor after Cleansing No No -Primary Dressing Applied Aquacel Extra, NonAdherent Contact Layer -Other Dressing aquacel -Primary Dressing Covered/Secured with Dry Gauze & Dry Gauze & Roll Gauze, Roll Gauze, Secured with Secured with Tape Tape -Aquacel Extra 0 #6 POSTERIOR LLE -Ulcer Cleansing Wound Cleanser Rinsed/ Irrigated with Saline -Foul Odor after Cleansing No No -Primary Dressing Applied Aquacel Extra, NonAdherent Contact Layer -Other Dressing aqaucel/adaptic -Primary Dressing Covered/Secured with Dry Gauze & Dry Gauze & Roll Gauze, Roll Gauze, Secured with Secured with Tape Tape -Aquacel Extra 0 #4 POSTERIOR RLE -Ulcer Cleansing Wound Cleanser Rinsed/ Irrigated with Saline -Foul Odor after Cleansing No No -Primary Dressing Applied Aquacel Extra, NonAdherent Contact Layer -Other Dressing aqaucel -Primary Dressing Covered/Secured with Dry Gauze & Dry Gauze & Roll Gauze, Roll Gauze, Secured with Secured with Tape Tape -Other Covering joao -Aquacel Extra 0 Left -Compression Wrap Joao Wrap -Other joao only wears to secure drsg. refuses application from toes to knee Right -Compression Wrap Joao Wrap -Other joao Treatment Response Procedure Procedure Tolerated Well Tolerated Well Pain Scale: 0-10 Numeric Is Patient Pain Free? Yes Yes Vital Signs Respiratory Rate (12-18) 18 Respiratory rate source Observation Oxygen Delivery Method Room Air WC - Visit Discharge Discharge Condition Stable Stable Ambulatory Status Wheelchair Wheelchair Transportation Private Auto Private Auto Accompanied by Wound debrided: plantar medial foot, posterior lower leg Laterality: Right Wound Grade/Stage: grade 3 Type of Debridement: Excisional debridement Anesthesia Used: 5% Lidocaine Gel Depth: in the subcutaneous layer Percentage of wound debrided: 100 Instrument Used: #15 blade Tissue Removed: fibrous, devitalized subcutaneous, biofilm, slough Severity: Fat Layer Exposed Amount of bleeding with debridement: Mild Bleeding Controlled with: Pressure Patient tolerated procedure well - Additional Wound Wound debrided: anterior [place] (superior, middle, inferior), posterior lower leg (more prox) Laterality: Right Wound Grade/Stage: grade 1 Type of Debridement: Excisional debridement Anesthesia Used: 5% Lidocaine Gel Depth: in the subcutaneous layer Percentage of wound debrided: 100 Instrument Used: #15 blade Tissue Removed: fibrous, devitalized subcutaneous, biofilm, slough Severity: Fat Layer Exposed Amount of bleeding with debridement: Mild Bleeding Controlled with: Pressure Patient tolerated procedure: Patient tolerated procedure well - Additional Wound Wound debrided: posterior lower leg Laterality: Left Wound Grade/Stage: grade 2 Type of Debridement: Excisional debridement Anesthesia Used: 5% Lidocaine Gel Depth: in the subcutaneous layer Percentage of wound debrided: 100 Instrument Used: #15 blade Tissue Removed: fibrous, devitalized subcutaneous, biofilm, slough Severity: Fat Layer Exposed Amount of bleeding with debridement: Mild Bleeding Controlled with: Pressure Patient tolerated procedure: Patient tolerated procedure well Assessment/Plan Assessment: -Lower extremity edema, stable. -New right foot skin tear. -recent increased falling with new injuries/wounds. -Right posterior leg ulcer grade 1, no infection. -right anterior leg ulcers (medial, superior, anterior, inferior) grade 1, no infection. -right anterior proximal leg ulcer grade 1, no infection. -new left leg ulcer proximal to tibial tuberosity, no infection. -Prior status post operating room excisional subcutaneous and tendon debridements to bilateral legs and right foot with additional application of advanced wound healing products to bilateral posterior lower legs--no infection and stable today -improvement noted. 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 -previous bilateral leg fasciotomies and debridements and irrigation performed previously now with right and left leg ulcers with fat and tendon layers exposed. -diabetic neuropathy. -malnutrition suspected. 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 -delayed healing. -gait impairment and fall risk. -other comorbidities. -Continued smoking habits Plan: I reviewed and discussed his case today. Debridement was performed to all sites as noted in the nursing panel in a subcutaneous excisional manner. His new skin tear is noted and this was clinically evaluated as noted in the physical exam section. This area was cleansed with saline and he was advised to change the dressing daily with Aquacel Ag also. The overlying skin was kept in place as a biological barrier. Additional debridement will be considered pending how this reincorporate. Compliance was reviewed while he is outside he needs to wear a cam walker to avoid these types of injuries. He entered the clinic today wearing socks which is very dangerous and not advised. To change daily with Aquacel Ag and Adaptic. It is noted he is taking Metanx for neuropathy symptoms and is doing well so far; he was advised to continue. He was reassured no local or systemic signs of illness is suspected today. To continue increased protein intake with nutritional supplementation. To continue glycemic control. He had a previous arterial Doppler scheduled with Dr. Morgan's staff on August 02, 2018 and overall perfusion was confirmed; additional intervention or workup was not recommended. It is also noted that he did have venous Doppler performed with reflux evaluation. He did not have evidence of deep venous thrombosis or venous insufficiency at that time; the vessels were compressible. I recommend he sustained from smoking and alcohol activities to optimize healing as well. Smoking cessation was encouraged. His recent increase pulse are noted with new wound formation. I am concerned about this and will re-refer him to his primary care physician to review new etiologies of his falling. Prior workup summary: His workup for vasculitis and underlying autoimmune disorder has been completed. A punch biopsy was sent during his last surgical intervention on June 10 and this demonstrated inflammatory changes without malignancy. He had initial screening labs and so far he has a negative RA titer, HL of the 27, KEVIN, anti-CCP, and rheumatoid factor. Several his antibody screenings were not reportable. Hyperbaric oxygen therapy was recommended and it is noted his ejection fraction was most recently 50%. He refuses at this time. . I answered his questions. To return to the wound healing center in 2 week. Due to coronavirus pandemic, reduced in person visits are offered. To call sooner if he has any questions or concerns. He will return in two weeks for debridement. . Quality measures reviewed as the following: Updated today: Medication and allergy reconciliation, pain status and follow-up plan. updated 01-10-2020- he denies falls this past year. Reviewed on 11-29-2019: up-to-date pneumonia vaccination status, he has not up-to-date influenza immunization performed in 09/2019, he does have a living will on file. He is a smoker and smoking cessation was reviewed. He does have elevated blood pressure at or above 120/80 mmHg and also elevated body mass index. For these issues I recommend he follows up with his primary care physician as scheduled. He was counseled on the importance of diet and exercise as well. Quality measures reviewed as the following: Updated today: Medication and allergy reconciliation, pain status and follow-up plan. Reviewed on 11-29-2019: up-to-date pneumonia vaccination status, he has not up-to-date influenza immunization performed in 09/2019, he does have a living will on file. He is a smoker and smoking cessation was reviewed. He does have elevated blood pressure at or above 120/80 mmHg and also elevated body mass index. For these issues I recommend he follows up with his primary care physician as scheduled. He was counseled on the importance of diet and exercise as well.
== END 2020-08-21 23:59 ==
LOC: WC 08:15
PROVIDERS: Family Provider Family Medicine; PCP Family Medicine; Visit Provider Podiatrist
DX: E11.621 Type 2 diabetes mellitus with foot ulcer (principal); L97.512 Non-pressure chronic ulcer of other part of right foot with fat layer exposed; L97.912 Non-pressure chronic ulcer of unspecified part of right lower leg with fat layer exposed; E11.42 Type 2 diabetes mellitus with diabetic polyneuropathy; S91.311A Laceration without foreign body, right foot, initial encounter; M72.6 Necrotizing fasciitis; E46 Unspecified protein-calorie malnutrition; L97.922 Non-pressure chronic ulcer of unspecified part of left lower leg with fat layer exposed; R60.0 Localized edema; T14.8XXD Other injury of unspecified body region, subsequent encounter; R03.0 Elevated blood-pressure reading, without diagnosis of hypertension
CPT/HCPCS: 11042

== ENCOUNTER 2020-09-04 08:33 | Outpatient (RCR) | payer MEDICARE, SELFPAY ==
[2020-08-22 00:27] VITALS: BP 128/72; PULSE 106; RESP 18; TEMP 35.5
[2020-09-04 08:37] VITALS: BP 146/68; PULSE 105; RESP 16; TEMP 36.2; BMI 32.3
[2020-09-04 09:25] VITALS: BP 143/79; PULSE 105; RESP 16; TEMP 36.4
--- NOTE | 2020-09-04 11:14 | PCM.WC.PN ---
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 Status: Chronic Code(s): L97.913 - Non-pressure chronic ulcer of unspecified part of right lower leg with necrosis of muscle (3) Type 2 diabetes mellitus with diabetic polyneuropathy Status: Chronic Code(s): E11.42 - Type 2 diabetes mellitus with diabetic polyneuropathy (4) Delayed wound healing Status: Chronic Code(s): T14.8XXD - Other injury of unspecified body region, subsequent encounter (5) Tobacco dependence due to cigarettes Status: Chronic Code(s): F17.210 - Nicotine dependence, cigarettes, uncomplicated (6) Ulcer of left lower extremity with fat layer exposed Status: Chronic Code(s): L97.922 - Non-pressure chronic ulcer of unspecified part of left lower leg with fat layer exposed (7) Ulcer of right foot with necrosis of muscle Status: Resolved Code(s): L97.513 - Non-pressure chronic ulcer of other part of right foot with necrosis of muscle (8) Localized edema Status: Chronic Code(s): R60.0 - Localized edema (9) Other hereditary and idiopathic neuropathies Status: Chronic Code(s): G60.8 - Other hereditary and idiopathic neuropathies Type of Wound Date of Service: 09/04/20 Chief Complaint: right and left Leg ulcers and right foot ulcer with new locations History of Wound: Mr. Arguello is a 65-year-old male with multiple comorbidities follows up for delayed healing ulcers to the right foot as well as bilateral legs. He denies chills, fever, nausea, or vomiting. He denies odor or redness. He denies pain. He changes the dressings as advised with Adaptic and Aquacel Ag. He is with his today. His reports he has been falling more frequently. His reports that he has some moist skin at his prior skin tear site and would like to have this removed today. This patient also has calluses to his left foot and is unable to safely trim this on his own. He last saw his primary care physician, Dr. Sparks on July 23, 2020. Progress of Wound: stable - Physical Exam Vital Signs Temp Pulse Resp BP 97.5 F L 105 H 16 143/79 H 09/04/20 09:25 09/04/20 09:25 09/04/20 09:25 09/04/20 09:25 General: Alert, Oriented x3, Cooperative, No apparent distress HEENT: Atraumatic Extremities: No cyanosis, Capillary Refill Less than 3 Seconds, No Calf Tenderness, Diminished Peripheral Pulses, Edema - Mild lower extremities Skin: Ulcer/ Wound - No purulence, erythema, streaking, odor, infection. There is no longer any visualized tendon or necrotic tissue. His skin is atrophic and hairless. His prior skin tear site to his distal medial right foot is moist and upon debridement there is granular base without deep tissue exposure, - - Callus subfirst and fifth metatarsal heads left Wound Measurements and Assessment WC - Nurse 1 - General Ulcer Measurement Start: 09/04/20 08:20 Freq: Status: Active Protocol: Activity Type Activity Date Activity User E-Sign Co-Sign Detail Recorded Client Recorded Date Recorded By Document 09/04/20 08:37 [facility] [id number] 09/04/20 08:55 BM 09/04/20 08:37 Wound Center Nurse 1 [Ulcer Assessment] #24 L Knee -Combined with other wound No -Current Size (cm) - Length 0.7 -Current Size (cm) - Width 1 -Current Size (cm) - Depth 0.1 -Total Square Cm 0.7 -Photo Taken No -Epithelialization None Present -Tunneling No -Undermining/Tunneling No -Circular Undermining No -Exudate Amt None Present -Wound Margin Distinct, Outline Attached -Slough/Fibrin Yes -Necrosis Amt Large (67-100%) -Texture (Lisa-wound Skin Appearance) Assessed, Scarring -Moisture (Lisa-wound Skin Appearance Assessed ) -Color (Lisa-wound Skin Appearance) Assessed -Temperature (Lisa-wound Skin No Abnormality Appearance) (Pt Warm) -Ulcer Cleansing soapy water -Foul Odor after Cleansing No -Anesthetic Used 4% Lidocaine Solution 23-right superior achilles -Combined with other wound No -Current Size (cm) - Length 4 -Current Size (cm) - Width 2.4 -Current Size (cm) - Depth 0.6 -Total Square Cm 9.6 -Photo Taken No -Epithelialization None Present -Tunneling No -Undermining/Tunneling No -Circular Undermining No -Exudate Type Serosanguineous -Wound Margin Distinct, Outline Attached -Granulation Amt Medium (34-66%) -Granulation Quality Red -Slough/Fibrin Yes -Necrosis Amt Medium (34-66%) -Texture (Lisa-wound Skin Appearance) Assessed, Scarring -Moisture (Lisa-wound Skin Appearance Assessed, ) Maceration,Dry/ Scaly -Color (Lisa-wound Skin Appearance) Assessed, Erythema -Temperature (Lisa-wound Skin No Abnormality Appearance) (Pt Warm) -Tenderness on Palpation (Lisa-wound No Skin Appearance) -Ulcer Cleansing soapy water -Foul Odor after Cleansing No -Anesthetic Used 4% Lidocaine Solution #22 R [place] inf -Combined with other wound No -Current Size (cm) - Length 0.1 -Current Size (cm) - Width 0.1 -Current Size (cm) - Depth 0.1 -Total Square Cm 0.01 -Photo Taken No -Epithelialization Large 67-100% -Texture (Lisa-wound Skin Appearance) Assessed -Moisture (Lisa-wound Skin Appearance Assessed,Dry/ ) Scaly -Color (Lisa-wound Skin Appearance) Assessed -Temperature (Lisa-wound Skin No Abnormality Appearance) (Pt Warm) -Tenderness on Palpation (Lisa-wound No Skin Appearance) -Ulcer Cleansing soapy water -Foul Odor after Cleansing No #21 R Med [place] -Combined with other wound No -Current Size (cm) - Length 1.2 -Current Size (cm) - Width 1 -Current Size (cm) - Depth 0.1 -Total Square Cm 1.2 -Photo Taken No -Epithelialization None Present -Tunneling No -Undermining/Tunneling No -Exudate Amt Small -Exudate Type Serosanguineous -Wound Margin Distinct, Outline Attached -Granulation Amt Medium (34-66%) -Granulation Quality Red -Slough/Fibrin Yes -Necrosis Amt Medium (34-66%) -Texture (Lisa-wound Skin Appearance) Assessed, Scarring -Moisture (Lisa-wound Skin Appearance Dry/Scaly ) -Color (Lisa-wound Skin Appearance) Assessed -Temperature (Lisa-wound Skin No Abnormality Appearance) (Pt Warm) -Tenderness on Palpation (Lisa-wound No Skin Appearance) -Ulcer Cleansing soapy water -Foul Odor after Cleansing No -Anesthetic Used 4% Lidocaine Solution #20 R med orellana sup -Combined with other wound No -Current Size (cm) - Length 1.8 -Current Size (cm) - Width 1 -Current Size (cm) - Depth 0.1 -Total Square Cm 1.8 -Photo Taken No -Epithelialization None Present -Undermining/Tunneling No -Circular Undermining No -Exudate Amt Small -Exudate Type Serosanguineous -Wound Margin Distinct, Outline Attached -Granulation Amt Medium (34-66%) -Granulation Quality Red -Slough/Fibrin Yes -Necrotic Tissue Type Adherent Slough -Texture (Lisa-wound Skin Appearance) Assessed, Scarring -Moisture (Lisa-wound Skin Appearance Assessed,Dry/ ) Scaly -Color (Lisa-wound Skin Appearance) Assessed -Temperature (Lisa-wound Skin No Abnormality Appearance) (Pt Warm) -Tenderness on Palpation (Lisa-wound No Skin Appearance) -Ulcer Cleansing soapy water -Foul Odor after Cleansing No -Anesthetic Used 4% Lidocaine Solution #18 R Grt toe lat -Combined with other wound No -Current Size (cm) - Length 0.8 -Current Size (cm) - Width 1.7 -Current Size (cm) - Depth 0.2 -Total Square Cm 1.36 -Photo Taken No -Epithelialization None Present -Tunneling No -Undermining/Tunneling No -Circular Undermining No -Exudate Amt Small -Exudate Type Serosanguineous -Wound Margin Distinct, Outline Attached -Granulation Amt Medium (34-66%) -Granulation Quality Red -Slough/Fibrin Yes -Necrosis Amt Medium (34-66%) -Necrotic Tissue Type Adherent Slough -Texture (Lisa-wound Skin Appearance) Callus,Scarring -Moisture (Lisa-wound Skin Appearance Assessed,Dry/ ) Scaly -Color (Lisa-wound Skin Appearance) Assessed -Temperature (Lisa-wound Skin No Abnormality Appearance) (Pt Warm) -Tenderness on Palpation (Lisa-wound No Skin Appearance) -Ulcer Cleansing soapy water -Foul Odor after Cleansing No -Anesthetic Used 4% Lidocaine Solution #11 RIGHT MEDIAL FOOT -Combined with other wound No -Current Size (cm) - Length 2.8 -Current Size (cm) - Width 1.3 -Current Size (cm) - Depth 0.3 -Total Square Cm 3.64 -Epithelialization None Present -Tunneling No -Undermining/Tunneling No -Circular Undermining No -Exudate Amt Small -Granulation Amt Medium (34-66%) -Granulation Quality Red -Slough/Fibrin Yes -Necrosis Amt Medium (34-66%) -Necrotic Tissue Type Adherent Slough -Texture (Lisa-wound Skin Appearance) Assessed, Scarring -Moisture (Lisa-wound Skin Appearance Assessed,Dry/ ) Scaly -Color (Lisa-wound Skin Appearance) Assessed -Temperature (Lisa-wound Skin No Abnormality Appearance) (Pt Warm) -Tenderness on Palpation (Ilsa-wound No Skin Appearance) -Ulcer Cleansing soapy water -Foul Odor after Cleansing No -Anesthetic Used 4% Lidocaine Solution #6 POSTERIOR LLE -Combined with other wound No -Current Size (cm) - Length 5.8 -Current Size (cm) - Width 1 -Current Size (cm) - Depth 0.4 -Total Square Cm 5.8 -Photo Taken No -Epithelialization None Present -Undermining/Tunneling No -Circular Undermining No -Exudate Amt Medium -Wound Margin Distinct, Outline Attached -Granulation Amt Medium (34-66%) -Granulation Quality Red -Slough/Fibrin Yes -Necrosis Amt Medium (34-66%) -Necrotic Tissue Type Adherent Slough -Texture (Lisa-wound Skin Appearance) Assessed, Scarring -Moisture (Lisa-wound Skin Appearance Assessed,Dry/ ) Scaly -Color (Lisa-wound Skin Appearance) Assessed -Tenderness on Palpation (Lisa-wound No Skin Appearance) -Ulcer Cleansing soapy water #4 POSTERIOR RLE -Combined with other wound No -Current Size (cm) - Length 0.6 -Current Size (cm) - Width 1.5 -Current Size (cm) - Depth 0.3 -Total Square Cm 0.90 -Photo Taken No -Epithelialization None Present -Tunneling No -Undermining/Tunneling No -Exudate Amt Medium -Exudate Type Serosanguineous -Wound Margin Distinct, Outline Attached -Granulation Amt Medium (34-66%) -Granulation Quality Red -Slough/Fibrin Yes -Necrosis Amt Medium (34-66%) -Necrotic Tissue Type Adherent Slough -Texture (Lisa-wound Skin Appearance) Assessed, Scarring -Moisture (Lisa-wound Skin Appearance Assessed ) -Color (Lisa-wound Skin Appearance) Assessed -Temperature (Lisa-wound Skin No Abnormality Appearance) (Pt Warm) -Ulcer Cleansing soapy water -Foul Odor after Cleansing No -Anesthetic Used 4% Lidocaine Solution WC - Nurse 2 - General Ulcer CM Notes Start: 09/04/20 08:20 Freq: Status: Active Protocol: Activity Type Activity Date Activity User E-Sign Co-Sign Detail Recorded Client Recorded Date Recorded By Document 09/04/20 09:01 JAMAL [id number] 09/04/20 09:12 JAMAL 09/04/20 09:01 Wound Center Nurse 2 [Procedure/Treatment] #24 L Knee -Correct Patient No -Correct Side, Site, Position No -Correct Procedure No -Procedure Performed No -Wound/Ulcer Outcome Not Healed 23-right superior achilles -Time 09:04 -Correct Patient Yes -Correct Side, Site, Position Yes -Correct Procedure Yes -Procedure Performed Yes -Type of Procedure Debridement -Clinical Debridement Subcutaneous -Tissue Removed Subcutaneous -Post Debridement (cm) - Length 4 -Post Debridement (cm) - Width 2.5 -Post Debridement (cm) - Depth 0.6 -Total Square (Post) (cm) 10.0 -Area of Debridement (cm) - Length 4.0 -Area of Debridement (cm) - Width 2.5 -Total Square (Area) (cm) 10.00 -Tunneling No -Undermining/Tunneling No -Circular Undermining No -Wound/Ulcer Outcome Not Healed -Ulcer Cleansing Rinsed/ Irrigated with Saline -Foul Odor after Cleansing No -Bioengineered Tissue No -Bleeding Controlled with Pressure -Type of Offloading Surgical Shoe -Treatment Response Procedure Tolerated Well -Debridement - Subq, 1st 20sq cm Yes #22 R [place]rell[place] inf -Time 09:05 -Correct Patient Yes -Correct Side, Site, Position Yes -Correct Procedure Yes -Clinical Debridement Subcutaneous -Tissue Removed Subcutaneous -Post Debridement (cm) - Length 0.1 -Post Debridement (cm) - Width 0.2 -Post Debridement (cm) - Depth 0.1 -Total Square (Post) (cm) 0.02 -Area of Debridement (cm) - Length 0.1 -Area of Debridement (cm) - Width 0.2 -Total Square (Area) (cm) 0.02 -Tunneling No -Undermining/Tunneling No -Circular Undermining No -Wound/Ulcer Outcome Not Healed -Ulcer Cleansing Rinsed/ Irrigated with Saline -Foul Odor after Cleansing No -Bioengineered Tissue No -Bleeding Controlled with Pressure -Offloading Yes -Type of Offloading Surgical Shoe -Treatment Response Procedure Tolerated Well -Debridement - Subq, 1st 20sq cm No #21 R Med Orellana -Time 09:06 -Correct Patient Yes -Correct Side, Site, Position Yes -Correct Procedure Yes -Procedure Performed Yes -Type of Procedure Debridement -Clinical Debridement Subcutaneous -Tissue Removed Subcutaneous -Post Debridement (cm) - Length 1.2 -Post Debridement (cm) - Width 1.1 -Post Debridement (cm) - Depth 0.1 -Total Square (Post) (cm) 1.32 -Area of Debridement (cm) - Length 1.2 -Area of Debridement (cm) - Width 1.1 -Total Square (Area) (cm) 1.32 -Tunneling No -Circular Undermining No -Wound/Ulcer Outcome Not Healed -Ulcer Cleansing Rinsed/ Irrigated with Saline -Foul Odor after Cleansing No -Bioengineered Tissue No -Bleeding Controlled with Pressure -Offloading Yes -Type of Offloading Total Contact Cast (TCC) - Right ($) -Treatment Response Procedure Tolerated Well -Debridement - Subq, 1st 20sq cm No #20 R med orellana sup -Time 09:07 -Correct Patient Yes -Correct Side, Site, Position Yes -Correct Procedure Yes -Procedure Performed Yes -Type of Procedure Debridement -Clinical Debridement Subcutaneous -Tissue Removed Subcutaneous -Post Debridement (cm) - Length 1.8 -Post Debridement (cm) - Width 1.1 -Post Debridement (cm) - Depth 0.1 -Total Square (Post) (cm) 1.98 -Area of Debridement (cm) - Length 1.8 -Area of Debridement (cm) - Width 1.1 -Total Square (Area) (cm) 1.98 -Tunneling No -Circular Undermining No -Wound/Ulcer Outcome Not Healed -Ulcer Cleansing Rinsed/ Irrigated with Saline -Foul Odor after Cleansing No -Bioengineered Tissue No -Bleeding Controlled with Pressure -Offloading Yes -Type of Offloading Surgical Shoe -Treatment Response Procedure Tolerated Well -Debridement - Subq, 1st 20sq cm No #18 R Grt toe lat -Time 09:07 -Correct Patient Yes -Correct Side, Site, Position Yes -Correct Procedure Yes -Procedure Performed Yes -Type of Procedure Debridement -Clinical Debridement Subcutaneous -Tissue Removed Subcutaneous -Post Debridement (cm) - Length 0.8 -Post Debridement (cm) - Width 1.8 -Post Debridement (cm) - Depth 0.2 -Total Square (Post) (cm) 1.44 -Area of Debridement (cm) - Length 0.8 -Area of Debridement (cm) - Width 1.8 -Total Square (Area) (cm) 1.44 -Tunneling No -Undermining/Tunneling No -Circular Undermining No -Wound/Ulcer Outcome Not Healed -Ulcer Cleansing Rinsed/ Irrigated with Saline -Foul Odor after Cleansing No -Bioengineered Tissue No -Bleeding Controlled with Pressure -Offloading Yes -Type of Offloading Surgical Shoe -Treatment Response Procedure Tolerated Well -Debridement - Subq, 1st 20sq cm No #11 RIGHT MEDIAL FOOT -Time 09:08 -Correct Patient Yes -Correct Side, Site, Position Yes -Correct Procedure Yes -Procedure Performed Yes -Type of Procedure Debridement -Clinical Debridement Subcutaneous -Tissue Removed Subcutaneous -Post Debridement (cm) - Length 2.8 -Post Debridement (cm) - Width 1.4 -Post Debridement (cm) - Depth 0.3 -Total Square (Post) (cm) 3.92 -Area of Debridement (cm) - Length 2.8 -Area of Debridement (cm) - Width 1.4 -Total Square (Area) (cm) 3.92 -Tunneling No -Undermining/Tunneling No -Circular Undermining No -Wound/Ulcer Outcome Not Healed -Ulcer Cleansing Rinsed/ Irrigated with Saline -Foul Odor after Cleansing No -Bioengineered Tissue No -Bleeding Controlled with Pressure -Offloading Yes -Type of Offloading Surgical Shoe -Treatment Response Procedure Tolerated Well -Debridement - Subq, 1st 20sq cm No #6 POSTERIOR LLE -Time 09:09 -Correct Patient Yes -Correct Side, Site, Position Yes -Correct Procedure Yes -Procedure Performed Yes -Type of Procedure Debridement -Clinical Debridement Subcutaneous -Tissue Removed Subcutaneous -Post Debridement (cm) - Length 5.8 -Post Debridement (cm) - Width 1.1 -Post Debridement (cm) - Depth 0.3 -Total Square (Post) (cm) 6.38 -Area of Debridement (cm) - Length 5.8 -Area of Debridement (cm) - Width 1.1 -Total Square (Area) (cm) 6.38 -Tunneling No -Undermining/Tunneling No -Circular Undermining No -Wound/Ulcer Outcome Not Healed -Ulcer Cleansing Rinsed/ Irrigated with Saline -Foul Odor after Cleansing No -Bioengineered Tissue No -Bleeding Controlled with Pressure -Offloading Yes -Type of Offloading Surgical Shoe -Treatment Response Procedure Tolerated Well -Debridement - Subq, 1st 20sq cm No #4 POSTERIOR RLE -Time 09:09 -Correct Patient Yes -Correct Side, Site, Position Yes -Correct Procedure Yes -Procedure Performed Yes -Type of Procedure Debridement -Clinical Debridement Subcutaneous -Post Debridement (cm) - Length 0.6 -Post Debridement (cm) - Width 1.6 -Post Debridement (cm) - Depth 0.3 -Total Square (Post) (cm) 0.96 -Area of Debridement (cm) - Length 0.6 -Area of Debridement (cm) - Width 1.6 -Total Square (Area) (cm) 0.96 -Tunneling No -Circular Undermining No -Wound/Ulcer Outcome Not Healed -Ulcer Cleansing Rinsed/ Irrigated with Saline -Foul Odor after Cleansing No -Bioengineered Tissue No -Bleeding Controlled with Pressure -Offloading Yes -Type of Offloading Surgical Shoe -Treatment Response Procedure Tolerated Well -Debridement - Subq, 1st 20sq cm No [See Physician Procedure note for Specifics] Pain Scale: 0-10 Numeric [Pain] -Is Patient Pain Free? Yes - Nurse 3 - General Ulcer D/C NN Start: 09/04/20 08:20 Freq: Status: Active Protocol: Activity Type Activity Date Activity User E-Sign Co-Sign Detail Recorded Client Recorded Date Recorded By Document 09/04/20 09:25 JF [id number] 09/04/20 09:42 JF 09/04/20 09:25 Wound Care Nurse 3 [Wound Dressing] #24 L Knee -Ulcer Cleansing Rinsed/ Irrigated with Saline -Foul Odor after Cleansing No -Primary Dressing Applied Aquacel Extra, NonAdherent Contact Layer -Primary Dressing Covered/Secured Dry Gauze, with Secured with Tape -Aquacel Extra 1 23-right superior achilles -Ulcer Cleansing Rinsed/ Irrigated with Saline -Primary Dressing Applied Aquacel Extra, NonAdherent Contact Layer -Primary Dressing Covered/Secured Dry Gauze, with Secured with Tape -Aquacel Extra 0 #22 R [place] inf -Ulcer Cleansing Rinsed/ Irrigated with Saline -Foul Odor after Cleansing No -Primary Dressing Applied Aquacel Extra, NonAdherent Contact Layer -Primary Dressing Covered/Secured Dry Gauze, with Secured with Tape -Aquacel Extra 0 #21 R Med [place] -Ulcer Cleansing Rinsed/ Irrigated with Saline -Foul Odor after Cleansing No -Primary Dressing Applied Aquacel Extra, NonAdherent Contact Layer -Primary Dressing Covered/Secured Dry Gauze, with Secured with Tape -Aquacel Extra 0 #20 R med orellana sup -Ulcer Cleansing Rinsed/ Irrigated with Saline -Foul Odor after Cleansing No -Primary Dressing Applied Aquacel Extra, NonAdherent Contact Layer -Primary Dressing Covered/Secured Dry Gauze, with Secured with Tape -Aquacel Extra 0 #18 R Grt toe lat -Ulcer Cleansing Rinsed/ Irrigated with Saline -Foul Odor after Cleansing No -Primary Dressing Applied Aquacel Extra, NonAdherent Contact Layer -Primary Dressing Covered/Secured Dry Gauze, with Secured with Tape -Aquacel Extra 0 #11 RIGHT MEDIAL FOOT -Ulcer Cleansing Rinsed/ Irrigated with Saline -Foul Odor after Cleansing No -Primary Dressing Applied Aquacel Extra, NonAdherent Contact Layer -Primary Dressing Covered/Secured Dry Gauze, with Secured with Tape -Aquacel Extra 0 #6 POSTERIOR LLE -Ulcer Cleansing Rinsed/ Irrigated with Saline -Foul Odor after Cleansing No -Primary Dressing Applied Aquacel Extra, NonAdherent Contact Layer -Primary Dressing Covered/Secured Dry Gauze, with Secured with Tape -Aquacel Extra 0 #4 POSTERIOR RLE -Ulcer Cleansing Rinsed/ Irrigated with Saline -Foul Odor after Cleansing No -Primary Dressing Applied Aquacel Extra, NonAdherent Contact Layer -Primary Dressing Covered/Secured Dry Gauze, with Secured with Tape -Aquacel Extra 0 Vital Signs [Temperature Protocol: VS] -Temperature (97.8 F-99.1 F) 97.5 F L -Temperature Source Temporal [Pulse] -Pulse Rate (60-100) 105 H -Pulse Location Monitor [Respirations] -Respiratory Rate (12-18) 16 -Respiratory rate source Observation [Blood Pressure] -Blood Pressure (90/60-120/80) 143/79 H -Blood Pressure Mean (mm Hg) 100 -Source Monitor -Position Semi-Fowlers -Blood Pressure Location Left Arm Pain Scale: 0-10 Numeric [Pain] -Is Patient Pain Free? Yes WC - Visit Discharge [Visit Discharge Information] -Discharge Condition Stable -Ambulatory Status Wheelchair -Transportation Private Auto -Medication Reconcilliation completed Yes & provided to patient/care provider -Clinical Summary of Care Provided Yes Musculoskeletal: No Tenderness to Palpation of Joints or Extremities, Muscle Wasting, - - Ray resection amputation right foot Neurological: - - Lack of normal epicritic sensation to light touch Psych/Mental Status: Normal Affect, Appropriate Debridement Note Post-Debridement Measurements/Treatment WC - Nurse 2 - General Ulcer CM Notes Start: 09/04/20 08:20 Freq: Status: Active Protocol: Activity Type Activity Date Activity User E-Sign Co-Sign Detail Recorded Client Recorded Date Recorded By Document 09/04/20 09:01 JAMAL [id number] 09/04/20 09:12 JAMAL 09/04/20 09:01 Wound Center Nurse 2 #24 L Knee -Correct Patient No -Correct Side, Site, Position No -Correct Procedure No -Procedure Performed No -Wound/Ulcer Outcome Not Healed 23-right superior achilles -Time 09:04 -Correct Patient Yes -Correct Side, Site, Position Yes -Correct Procedure Yes -Procedure Performed Yes -Type of Procedure Debridement -Clinical Debridement Subcutaneous -Tissue Removed Subcutaneous -Post Debridement (cm) - Length 4 -Post Debridement (cm) - Width 2.5 -Post Debridement (cm) - Depth 0.6 -Total Square (Post) (cm) 10.0 -Area of Debridement (cm) - Length 4.0 -Area of Debridement (cm) - Width 2.5 -Total Square (Area) (cm) 10.00 -Tunneling No -Undermining/Tunneling No -Circular Undermining No -Wound/Ulcer Outcome Not Healed -Ulcer Cleansing Rinsed/ Irrigated with Saline -Foul Odor after Cleansing No -Bioengineered Tissue No -Bleeding Controlled with Pressure -Type of Offloading Surgical Shoe -Treatment Response Procedure Tolerated Well -Debridement - Subq, 1st 20sq cm Yes #22 R [place]rell[place] inf -Time 09:05 -Correct Patient Yes -Correct Side, Site, Position Yes -Correct Procedure Yes -Clinical Debridement Subcutaneous -Tissue Removed Subcutaneous -Post Debridement (cm) - Length 0.1 -Post Debridement (cm) - Width 0.2 -Post Debridement (cm) - Depth 0.1 -Total Square (Post) (cm) 0.02 -Area of Debridement (cm) - Length 0.1 -Area of Debridement (cm) - Width 0.2 -Total Square (Area) (cm) 0.02 -Tunneling No -Undermining/Tunneling No -Circular Undermining No -Wound/Ulcer Outcome Not Healed -Ulcer Cleansing Rinsed/ Irrigated with Saline -Foul Odor after Cleansing No -Bioengineered Tissue No -Bleeding Controlled with Pressure -Offloading Yes -Type of Offloading Surgical Shoe -Treatment Response Procedure Tolerated Well -Debridement - Subq, 1st 20sq cm No #21 R [employer] Systems Orellana -Time 09:06 -Correct Patient Yes -Correct Side, Site, Position Yes -Correct Procedure Yes -Procedure Performed Yes -Type of Procedure Debridement -Clinical Debridement Subcutaneous -Tissue Removed Subcutaneous -Post Debridement (cm) - Length 1.2 -Post Debridement (cm) - Width 1.1 -Post Debridement (cm) - Depth 0.1 -Total Square (Post) (cm) 1.32 -Area of Debridement (cm) - Length 1.2 -Area of Debridement (cm) - Width 1.1 -Total Square (Area) (cm) 1.32 -Tunneling No -Circular Undermining No -Wound/Ulcer Outcome Not Healed -Ulcer Cleansing Rinsed/ Irrigated with Saline -Foul Odor after Cleansing No -Bioengineered Tissue No -Bleeding Controlled with Pressure -Offloading Yes -Type of Offloading Total Contact Cast (TCC) - Right ($) -Treatment Response Procedure Tolerated Well -Debridement - Subq, 1st 20sq cm No #20 R Fast [employer] sup -Time 09:07 -Correct Patient Yes -Correct Side, Site, Position Yes -Correct Procedure Yes -Procedure Performed Yes -Type of Procedure Debridement -Clinical Debridement Subcutaneous -Tissue Removed Subcutaneous -Post Debridement (cm) - Length 1.8 -Post Debridement (cm) - Width 1.1 -Post Debridement (cm) - Depth 0.1 -Total Square (Post) (cm) 1.98 -Area of Debridement (cm) - Length 1.8 -Area of Debridement (cm) - Width 1.1 -Total Square (Area) (cm) 1.98 -Tunneling No -Circular Undermining No -Wound/Ulcer Outcome Not Healed -Ulcer Cleansing Rinsed/ Irrigated with Saline -Foul Odor after Cleansing No -Bioengineered Tissue No -Bleeding Controlled with Pressure -Offloading Yes -Type of Offloading Surgical Shoe -Treatment Response Procedure Tolerated Well -Debridement - Subq, 1st 20sq cm No #18 R Grt toe lat -Time 09:07 -Correct Patient Yes -Correct Side, Site, Position Yes -Correct Procedure Yes -Procedure Performed Yes -Type of Procedure Debridement -Clinical Debridement Subcutaneous -Tissue Removed Subcutaneous -Post Debridement (cm) - Length 0.8 -Post Debridement (cm) - Width 1.8 -Post Debridement (cm) - Depth 0.2 -Total Square (Post) (cm) 1.44 -Area of Debridement (cm) - Length 0.8 -Area of Debridement (cm) - Width 1.8 -Total Square (Area) (cm) 1.44 -Tunneling No -Undermining/Tunneling No -Circular Undermining No -Wound/Ulcer Outcome Not Healed -Ulcer Cleansing Rinsed/ Irrigated with Saline -Foul Odor after Cleansing No -Bioengineered Tissue No -Bleeding Controlled with Pressure -Offloading Yes -Type of Offloading Surgical Shoe -Treatment Response Procedure Tolerated Well -Debridement - Subq, 1st 20sq cm No #11 RIGHT MEDIAL FOOT -Time 09:08 -Correct Patient Yes -Correct Side, Site, Position Yes -Correct Procedure Yes -Procedure Performed Yes -Type of Procedure Debridement -Clinical Debridement Subcutaneous -Tissue Removed Subcutaneous -Post Debridement (cm) - Length 2.8 -Post Debridement (cm) - Width 1.4 -Post Debridement (cm) - Depth 0.3 -Total Square (Post) (cm) 3.92 -Area of Debridement (cm) - Length 2.8 -Area of Debridement (cm) - Width 1.4 -Total Square (Area) (cm) 3.92 -Tunneling No -Undermining/Tunneling No -Circular Undermining No -Wound/Ulcer Outcome Not Healed -Ulcer Cleansing Rinsed/ Irrigated with Saline -Foul Odor after Cleansing No -Bioengineered Tissue No -Bleeding Controlled with Pressure -Offloading Yes -Type of Offloading Surgical Shoe -Treatment Response Procedure Tolerated Well -Debridement - Subq, 1st 20sq cm No #6 POSTERIOR LLE -Time 09:09 -Correct Patient Yes -Correct Side, Site, Position Yes -Correct Procedure Yes -Procedure Performed Yes -Type of Procedure Debridement -Clinical Debridement Subcutaneous -Tissue Removed Subcutaneous -Post Debridement (cm) - Length 5.8 -Post Debridement (cm) - Width 1.1 -Post Debridement (cm) - Depth 0.3 -Total Square (Post) (cm) 6.38 -Area of Debridement (cm) - Length 5.8 -Area of Debridement (cm) - Width 1.1 -Total Square (Area) (cm) 6.38 -Tunneling No -Undermining/Tunneling No -Circular Undermining No -Wound/Ulcer Outcome Not Healed -Ulcer Cleansing Rinsed/ Irrigated with Saline -Foul Odor after Cleansing No -Bioengineered Tissue No -Bleeding Controlled with Pressure -Offloading Yes -Type of Offloading Surgical Shoe -Treatment Response Procedure Tolerated Well -Debridement - Subq, 1st 20sq cm No #4 POSTERIOR RLE -Time 09:09 -Correct Patient Yes -Correct Side, Site, Position Yes -Correct Procedure Yes -Procedure Performed Yes -Type of Procedure Debridement -Clinical Debridement Subcutaneous -Post Debridement (cm) - Length 0.6 -Post Debridement (cm) - Width 1.6 -Post Debridement (cm) - Depth 0.3 -Total Square (Post) (cm) 0.96 -Area of Debridement (cm) - Length 0.6 -Area of Debridement (cm) - Width 1.6 -Total Square (Area) (cm) 0.96 -Tunneling No -Circular Undermining No -Wound/Ulcer Outcome Not Healed -Ulcer Cleansing Rinsed/ Irrigated with Saline -Foul Odor after Cleansing No -Bioengineered Tissue No -Bleeding Controlled with Pressure -Offloading Yes -Type of Offloading Surgical Shoe -Treatment Response Procedure Tolerated Well -Debridement - Subq, 1st 20sq cm No Pain Scale: 0-10 Numeric Is Patient Pain Free? Yes WC - Nurse 3 - General Ulcer D/C NN Start: 09/04/20 08:20 Freq: Status: Active Protocol: Activity Type Activity Date Activity User E-Sign Co-Sign Detail Recorded Client Recorded Date Recorded By Document 09/04/20 09:25 JF [id number] 09/04/20 09:42 JF 09/04/20 09:25 Wound Care Nurse 3 #24 L Knee -Ulcer Cleansing Rinsed/ Irrigated with Saline -Foul Odor after Cleansing No -Primary Dressing Applied Aquacel Extra, NonAdherent Contact Layer -Primary Dressing Covered/Secured with Dry Gauze, Secured with Tape -Aquacel Extra 1 23-right superior achilles -Ulcer Cleansing Rinsed/ Irrigated with Saline -Primary Dressing Applied Aquacel Extra, NonAdherent Contact Layer -Primary Dressing Covered/Secured with Dry Gauze, Secured with Tape -Aquacel Extra 0 #22 R [place] inf -Ulcer Cleansing Rinsed/ Irrigated with Saline -Foul Odor after Cleansing No -Primary Dressing Applied Aquacel Extra, NonAdherent Contact Layer -Primary Dressing Covered/Secured with Dry Gauze, Secured with Tape -Aquacel Extra 0 #21 R Med [place] -Ulcer Cleansing Rinsed/ Irrigated with Saline -Foul Odor after Cleansing No -Primary Dressing Applied Aquacel Extra, NonAdherent Contact Layer -Primary Dressing Covered/Secured with Dry Gauze, Secured with Tape -Aquacel Extra 0 #20 R med [place] sup -Ulcer Cleansing Rinsed/ Irrigated with Saline -Foul Odor after Cleansing No -Primary Dressing Applied Aquacel Extra, NonAdherent Contact Layer -Primary Dressing Covered/Secured with Dry Gauze, Secured with Tape -Aquacel Extra 0 #18 R Grt toe lat -Ulcer Cleansing Rinsed/ Irrigated with Saline -Foul Odor after Cleansing No -Primary Dressing Applied Aquacel Extra, NonAdherent Contact Layer -Primary Dressing Covered/Secured with Dry Gauze, Secured with Tape -Aquacel Extra 0 #11 RIGHT MEDIAL FOOT -Ulcer Cleansing Rinsed/ Irrigated with Saline -Foul Odor after Cleansing No -Primary Dressing Applied Aquacel Extra, NonAdherent Contact Layer -Primary Dressing Covered/Secured with Dry Gauze, Secured with Tape -Aquacel Extra 0 #6 POSTERIOR LLE -Ulcer Cleansing Rinsed/ Irrigated with Saline -Foul Odor after Cleansing No -Primary Dressing Applied Aquacel Extra, NonAdherent Contact Layer -Primary Dressing Covered/Secured with Dry Gauze, Secured with Tape -Aquacel Extra 0 #4 POSTERIOR RLE -Ulcer Cleansing Rinsed/ Irrigated with Saline -Foul Odor after Cleansing No -Primary Dressing Applied Aquacel Extra, NonAdherent Contact Layer -Primary Dressing Covered/Secured with Dry Gauze, Secured with Tape -Aquacel Extra 0 Vital Signs Temperature (97.8 F-99.1 F) 97.5 F L Temperature Source Temporal Pulse Rate (60-100) 105 H Pulse Location Monitor Respiratory Rate (12-18) 16 Respiratory rate source Observation Blood Pressure (90/60-120/80) 143/79 H Blood Pressure Mean (mm Hg) 100 Source Monitor Position Semi-Fowlers Blood Pressure Location Left Arm Pain Scale: 0-10 Numeric Is Patient Pain Free? Yes WC - Visit Discharge Discharge Condition Stable Ambulatory Status Wheelchair Transportation Private Auto Medication Reconcilliation completed & Yes provided to patient/care provider Clinical Summary of Care Provided Yes Wound debrided: plantar right forefoot Laterality: Right Wound Grade/Stage: grade 1 Type of Debridement: Excisional debridement Anesthesia Used: 5% Lidocaine Gel Depth: in the subcutaneous layer Percentage of wound debrided: 100 Instrument Used: #15 blade Tissue Removed: fibrous, devitalized subcutaneous, biofilm, slough Severity: Fat Layer Exposed Amount of bleeding with debridement: Mild Bleeding Controlled with: Pressure Patient tolerated procedure well - Additional Wound Wound debrided: medial foot, posterior leg, posterior leg (superior) Laterality: Right Wound Grade/Stage: grade 3 Type of Debridement: Excisional debridement Anesthesia Used: 5% Lidocaine Gel Depth: in the subcutaneous layer Percentage of wound debrided: 100 Instrument Used: #15 blade Tissue Removed: fibrous, devitalized subcutaneous, biofilm, slough Severity: Fat Layer Exposed Amount of bleeding with debridement: Mild Bleeding Controlled with: Pressure Patient tolerated procedure: Patient tolerated procedure well - Additional Wound Wound debrided: leg (superior, inferior, medial) Laterality: Right Wound Grade/Stage: grade 1 Type of Debridement: Excisional debridement Anesthesia Used: 5% Lidocaine Gel Depth: in the subcutaneous layer Percentage of wound debrided: 100 Instrument Used: #15 blade Tissue Removed: fibrous, devitalized subcutaneous, biofilm, slough Severity: Fat Layer Exposed Amount of bleeding with debridement: Mild Bleeding Controlled with: Pressure Patient tolerated procedure: Patient tolerated procedure well - Additional Wound Wound debrided: posterior leg Laterality: Left Wound Grade/Stage: grade 2 Type of Debridement: Excisional debridement Anesthesia Used: 5% Lidocaine Gel Depth: in the subcutaneous layer Percentage of wound debrided: 100 Instrument Used: #15 blade Tissue Removed: fibrous, devitalized subcutaneous, biofilm, slough Severity: Fat Layer Exposed Amount of bleeding with debridement: Mild Bleeding Controlled with: Pressure Patient tolerated procedure: Patient tolerated procedure well Assessment/Plan Active Problems (Last Updated 09/28/18 @ 12:41 by Geraldine Steele) Corns and callosities (Chronic) 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 -Callosities left foot x2. -Right plantar medial first metatarsal head ulcer at prior skin tear site, grade 1. -Right posterior leg ulcer grade 1, no infection. -right anterior leg ulcers (medial, superior, anterior, inferior) grade 1, no infection. -right anterior proximal leg ulcer grade 1, no infection. -new left leg ulcer proximal to tibial tuberosity, no infection. -Prior status post operating room excisional subcutaneous and tendon debridements to bilateral legs and right foot with additional application of advanced wound healing products to bilateral posterior lower legs--no infection and stable today -improvement noted. 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 -previous bilateral leg fasciotomies and debridements and irrigation performed previously now with right and left leg ulcers with fat and tendon layers exposed. -diabetic neuropathy. -malnutrition suspected. 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 -delayed healing. -gait impairment and fall risk. -other comorbidities. -Continued smoking habits Plan: I reviewed and discussed his case today. Debridement was performed to all sites as noted in the nursing panel in a subcutaneous excisional manner. Compliance was reviewed while he is outside he needs to wear a cam walker to avoid these types of injuries. To change daily with Aquacel Ag and Adaptic. It is noted he is taking Metanx for neuropathy symptoms and is doing well so far; he was advised to continue. He was reassured no local or systemic signs of illness is suspected today. To continue increased protein intake with nutritional supplementation. To continue glycemic control. He had a previous arterial Doppler scheduled with Dr. Morgan's staff on August 02, 2018 and overall perfusion was confirmed; additional intervention or workup was not recommended. It is also noted that he did have venous Doppler performed with reflux evaluation. He did not have evidence of deep venous thrombosis or venous insufficiency at that time; the vessels were compressible. I recommend he sustained from smoking and alcohol activities to optimize healing as well. Smoking cessation was encouraged. His recent increase pulse are noted with new wound formation. I am concerned about this and will re-refer him to his primary care physician to review new etiologies of his falling. The calluses on the left foot subfirst and fifth metatarsal heads were debrided without incident after verbal consent was obtained. This is necessary due to his at risk clinical findings. Performing this procedure on his own would compromise his limb safety and I recommend this is performed by professional to prevent ulcers and infection. He tolerated this. Prior workup summary: His workup for vasculitis and underlying autoimmune disorder has been completed. A punch biopsy was sent during his last surgical intervention on June 10 and this demonstrated inflammatory changes without malignancy. He had initial screening labs and so far he has a negative RA titer, HL of the 27, KEVIN, anti-CCP, and rheumatoid factor. Several his antibody screenings were not reportable. Hyperbaric oxygen therapy was recommended and it is noted his ejection fraction was most recently 50%. He refuses at this time. . I answered his questions. To return to the wound healing center in 2 week. Due to coronavirus pandemic, reduced in person visits are offered. To call sooner if he has any questions or concerns. He will return in two weeks for debridement. . Quality measures reviewed as the following: Updated today: Medication and allergy reconciliation, pain status and follow-up plan. updated 01-10-2020- he denies falls this past year. Reviewed on 11-29-2019: up-to-date pneumonia vaccination status, he has not up-to-date influenza immunization performed in 09/2019, he does have a living will on file. He is a smoker and smoking cessation was reviewed. He does have elevated blood pressure at or above 120/80 mmHg and also elevated body mass index. For these issues I recommend he follows up with his primary care physician as scheduled. He was counseled on the importance of diet and exercise as well. Quality measures reviewed as the following: Updated today: Medication and allergy reconciliation, pain status and follow-up plan. Reviewed on 11-29-2019: up-to-date pneumonia vaccination status, he has not up-to-date influenza immunization performed in 09/2019, he does have a living will on file. He is a smoker and smoking cessation was reviewed. He does have elevated blood pressure at or above 120/80 mmHg and also elevated body mass index. For these issues I recommend he follows up with his primary care physician as scheduled. He was counseled on the importance of diet and exercise as well.
== END 2020-09-21 23:59 ==
LOC: WC 08:33
PROVIDERS: Family Provider Family Medicine; PCP Family Medicine; Visit Provider Podiatrist
DX: E11.621 Type 2 diabetes mellitus with foot ulcer (principal); L97.512 Non-pressure chronic ulcer of other part of right foot with fat layer exposed; E11.42 Type 2 diabetes mellitus with diabetic polyneuropathy; F17.210 Nicotine dependence, cigarettes, uncomplicated; R60.0 Localized edema; G60.8 Other hereditary and idiopathic neuropathies; L84 Corns and callosities; L97.822 Non-pressure chronic ulcer of other part of left lower leg with fat layer exposed; E11.622 Type 2 diabetes mellitus with other skin ulcer
CPT/HCPCS: 11042; 29445

== ENCOUNTER 2020-10-09 08:30 | Outpatient (RCR) | payer MEDICARE, SELFPAY ==
[2020-09-22 00:17] VITALS: BP 143/79; PULSE 105; RESP 16; TEMP 36.4
[2020-09-25 10:03] VITALS: BP 134/83; PULSE 105; RESP 20; TEMP 35.9; BMI 32.3
--- NOTE | 2020-09-25 22:33 | PCM.WC.PN ---
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 Status: Chronic Code(s): L97.913 - Non-pressure chronic ulcer of unspecified part of right lower leg with necrosis of muscle (3) Ulcer of right lower extremity with fat layer exposed Status: Chronic Code(s): L97.912 - Non-pressure chronic ulcer of unspecified part of right lower leg with fat layer exposed (4) Type 2 diabetes mellitus with diabetic polyneuropathy Status: Chronic Code(s): E11.42 - Type 2 diabetes mellitus with diabetic polyneuropathy (5) Delayed wound healing Status: Chronic Code(s): T14.8XXD - Other injury of unspecified body region, subsequent encounter (6) Ulcer of left lower extremity with fat layer exposed Status: Chronic Code(s): L97.922 - Non-pressure chronic ulcer of unspecified part of left lower leg with fat layer exposed (7) Localized edema Status: Chronic Code(s): R60.0 - Localized edema Type of Wound Date of Service: 09/25/20 Chief Complaint: right and left Leg ulcers and right foot ulcer History of Wound: Mr. Arguello is a 65-year-old male with multiple comorbidities follows up for delayed healing ulcers to the right foot as well as bilateral legs. He denies chills, fever, nausea, or vomiting. He denies odor or redness. He denies pain. He changes the dressings as advised with Adaptic and Aquacel Ag. He is with his today. Progress of Wound: stable - Physical Exam Vital Signs Temp Pulse Resp BP 96.7 F L 105 H 20 H 134/83 H 09/25/20 10:03 09/25/20 10:03 09/25/20 10:03 09/25/20 10:03 General: Alert, Oriented x3, Cooperative, No apparent distress HEENT: Atraumatic Extremities: No cyanosis, Capillary Refill Less than 3 Seconds, No Calf Tenderness, Diminished Peripheral Pulses, Edema - Mild Skin: Ulcer/ Wound - No purulence, erythema, string, odor, infection. Skin is atrophic and hairless, - - Ray resection right foot Wound Measurements and Assessment WC - Nurse 1 - General Ulcer Measurement Start: 09/25/20 10:02 Freq: Status: Active Protocol: Activity Type Activity Date Activity User E-Sign Co-Sign Detail Recorded Client Recorded Date Recorded By Document 09/25/20 10:03 DL [id number] 09/25/20 10:27 DL 09/25/20 10:03 Wound Center Nurse 1 [Ulcer Assessment] #24 L Knee -Current Size (cm) - Length 0 -Current Size (cm) - Width 0 -Current Size (cm) - Depth 0 -Total Square Cm 0 -Photo Taken Yes -Exudate Amt None Present -Wound Margin Flat & Intact -Granulation Amt Large (67-100%) -Granulation Quality Pale,[place] -Necrosis Amt None Present (0 %) -Structure Exposed N/A -Texture (Lisa-wound Skin Appearance) Scarring -Moisture (Lisa-wound Skin Appearance Dry/Scaly ) -Color (Lisa-wound Skin Appearance) No Abnormality -Temperature (Lisa-wound Skin No Abnormality Appearance) (Pt Warm) -Tenderness on Palpation (Lisa-wound No Skin Appearance) -Ulcer Cleansing Wound Cleanser -Foul Odor after Cleansing No 23-right superior achilles -Current Size (cm) - Length 1.1 -Current Size (cm) - Width 1.2 -Current Size (cm) - Depth 0.2 -Total Square Cm 1.32 -Exudate Amt Small -Exudate Type Serosanguineous -Wound Margin Thickened -Granulation Quality [place] -Necrosis Amt Large (67-100%) -Structure Exposed N/A -Texture (Lisa-wound Skin Appearance) Scarring -Moisture (Lisa-wound Skin Appearance Dry/Scaly ) -Temperature (Lisa-wound Skin No Abnormality Appearance) (Pt Warm) -Tenderness on Palpation (Lisa-wound No Skin Appearance) -Ulcer Cleansing Wound Cleanser -Anesthetic Used 4% Lidocaine Solution #22 R [place] inf -Current Size (cm) - Length 0 -Current Size (cm) - Width 0 -Current Size (cm) - Depth 0 -Total Square Cm 0 -Photo Taken No -Exudate Amt None Present -Wound Margin Flat & Intact -Granulation Amt Small (1-33%) -Granulation Quality [place] -Necrosis Amt None Present (0 %) -Structure Exposed N/A -Texture (Lisa-wound Skin Appearance) Scarring -Moisture (Lisa-wound Skin Appearance Dry/Scaly ) -Color (Ilsa-wound Skin Appearance) Hemosiderin Staining -Temperature (Lisa-wound Skin No Abnormality Appearance) (Pt Warm) -Ulcer Cleansing Wound Cleanser -Foul Odor after Cleansing No #21 R Med [place] -Current Size (cm) - Length 0.5 -Current Size (cm) - Width 0.5 -Current Size (cm) - Depth 0.1 -Total Square Cm 0.25 -Exudate Amt None Present -Wound Margin Flat & Intact -Granulation Amt Small (1-33%) -Granulation Quality [place] -Necrosis Amt None Present (0 %) -Structure Exposed N/A -Texture (Lisa-wound Skin Appearance) Scarring -Moisture (Lisa-wound Skin Appearance Dry/Scaly ) -Color (Lisa-wound Skin Appearance) Hemosiderin Staining -Temperature (Lisa-wound Skin No Abnormality Appearance) (Pt Warm) -Tenderness on Palpation (Lisa-wound No Skin Appearance) -Foul Odor after Cleansing No #20 R med orellana sup -Current Size (cm) - Length 0.9 -Current Size (cm) - Width 0.5 -Current Size (cm) - Depth 0.1 -Total Square Cm 0.45 -Photo Taken No -Exudate Amt None Present -Wound Margin Distinct, Outline Attached -Granulation Amt Small (1-33%) -Granulation Quality [place] -Necrosis Amt Small (1-33%) -Necrotic Tissue Type Adherent Slough -Structure Exposed N/A -Texture (Lisa-wound Skin Appearance) Scarring -Moisture (Lisa-wound Skin Appearance Dry/Scaly ) -Color (Lisa-wound Skin Appearance) Hemosiderin Staining -Temperature (Lisa-wound Skin No Abnormality Appearance) (Pt Warm) -Tenderness on Palpation (Lisa-wound No Skin Appearance) -Ulcer Cleansing Wound Cleanser -Anesthetic Used 4% Lidocaine Solution #18 R Grt toe lat -Current Size (cm) - Length 0.8 -Current Size (cm) - Width 0.5 -Current Size (cm) - Depth 0.1 -Total Square Cm 0.40 -Photo Taken No -Exudate Amt Small -Exudate Type Serosanguineous -Wound Margin Thickened -Granulation Amt Small (1-33%) -Granulation Quality [place] -Necrosis Amt Small (1-33%) -Necrotic Tissue Type Adherent Slough -Structure Exposed N/A -Texture (Lisa-wound Skin Appearance) Scarring -Moisture (Lisa-wound Skin Appearance Dry/Scaly ) -Color (Lisa-wound Skin Appearance) Hemosiderin Staining -Temperature (Lisa-wound Skin No Abnormality Appearance) (Pt Warm) -Tenderness on Palpation (Lisa-wound No Skin Appearance) -Ulcer Cleansing Wound Cleanser -Foul Odor after Cleansing No -Anesthetic Used 4% Lidocaine Solution #11 RIGHT MEDIAL FOOT -Current Size (cm) - Length 3.3 -Current Size (cm) - Width 2 -Current Size (cm) - Depth 0.3 -Total Square Cm 6.6 -Photo Taken No -Exudate Amt Small -Exudate Type Serosanguineous -Wound Margin Thickened -Granulation Amt Large (67-100%) -Granulation Quality [place],Red -Necrosis Amt Small (1-33%) -Necrotic Tissue Type Adherent Slough -Structure Exposed N/A -Texture (Lisa-wound Skin Appearance) Scarring -Moisture (Lisa-wound Skin Appearance Dry/Scaly ) -Color (Lisa-wound Skin Appearance) Hemosiderin Staining -Temperature (Lisa-wound Skin No Abnormality Appearance) (Pt Warm) -Tenderness on Palpation (Lisa-wound No Skin Appearance) -Ulcer Cleansing Wound Cleanser -Foul Odor after Cleansing No -Anesthetic Used 4% Lidocaine Solution #6 POSTERIOR LLE -Current Size (cm) - Length 5.5 -Current Size (cm) - Width 1 -Current Size (cm) - Depth 0.5 -Total Square Cm 5.5 -Photo Taken No -Undermining/Tunneling No -Wound Margin Thickened -Granulation Quality Red -Necrosis Amt Medium (34-66%) -Necrotic Tissue Type Adherent Slough -Structure Exposed N/A -Texture (Lisa-wound Skin Appearance) Scarring -Moisture (Lisa-wound Skin Appearance Dry/Scaly ) -Color (Lisa-wound Skin Appearance) Hemosiderin Staining -Temperature (Lisa-wound Skin No Abnormality Appearance) (Pt Warm) -Tenderness on Palpation (Lisa-wound No Skin Appearance) -Ulcer Cleansing Wound Cleanser -Foul Odor after Cleansing No -Anesthetic Used 4% Lidocaine Solution #4 POSTERIOR RLE -Current Size (cm) - Length 1 -Current Size (cm) - Width 0.5 -Current Size (cm) - Depth 0.1 -Total Square Cm 0.5 -Photo Taken No -Exudate Amt None Present -Wound Margin Thickened -Granulation Amt None Present (0 %) -Necrotic Tissue Type Eschar -Structure Exposed N/A -Texture (Lisa-wound Skin Appearance) Scarring -Moisture (Lisa-wound Skin Appearance Dry/Scaly ) -Color (Lisa-wound Skin Appearance) Hemosiderin Staining -Temperature (Lisa-wound Skin No Abnormality Appearance) (Pt Warm) -Tenderness on Palpation (Lisa-wound No Skin Appearance) -Ulcer Cleansing Wound Cleanser -Foul Odor after Cleansing No -Anesthetic Used 4% Lidocaine Solution WC - Nurse 2 - General Ulcer CM Notes Start: 09/25/20 10:02 Freq: Status: Active Protocol: Activity Type Activity Date Activity User E-Sign Co-Sign Detail Recorded Client Recorded Date Recorded By Document 09/25/20 12:06 JAMAL [id number] 09/25/20 12:19 JAMAL 09/25/20 12:06 Wound Center Nurse 2 [Procedure/Treatment] #24 L Knee -Correct Patient No -Correct Side, Site, Position No -Correct Procedure No -Procedure Performed No -Circular Undermining No -Wound/Ulcer Outcome Not Healed 23-right superior achilles -Time 12:07 -Correct Patient Yes -Correct Side, Site, Position Yes -Correct Procedure Yes -Procedure Performed Yes -Type of Procedure Debridement -Clinical Debridement Subcutaneous -Tissue Removed Subcutaneous -Post Debridement (cm) - Length 1.2 -Post Debridement (cm) - Width 1.2 -Post Debridement (cm) - Depth 0.3 -Total Square (Post) (cm) 1.44 -Area of Debridement (cm) - Length 1.2 -Area of Debridement (cm) - Width 1.2 -Total Square (Area) (cm) 1.44 -Tunneling No -Undermining/Tunneling No -Circular Undermining No -Wound/Ulcer Outcome Not Healed -Ulcer Cleansing Rinsed/ Irrigated with Saline -Foul Odor after Cleansing No -Bioengineered Tissue No -Bleeding Controlled with Pressure -Offloading No -Treatment Response Procedure Tolerated Well -Debridement - Subq, 1st 20sq cm No #22 R [place]rell[place] inf -Time 12:11 -Correct Patient Yes -Correct Side, Site, Position Yes -Correct Procedure Yes -Procedure Performed Yes -Type of Procedure Debridement -Clinical Debridement Subcutaneous -Tissue Removed Subcutaneous -Post Debridement (cm) - Length 0.2 -Post Debridement (cm) - Width 0.2 -Post Debridement (cm) - Depth 0.1 -Total Square (Post) (cm) 0.04 -Area of Debridement (cm) - Length 0.2 -Area of Debridement (cm) - Width 0.2 -Total Square (Area) (cm) 0.04 -Tunneling No -Undermining/Tunneling No -Circular Undermining No -Wound/Ulcer Outcome Not Healed -Ulcer Cleansing Rinsed/ Irrigated with Saline -Foul Odor after Cleansing No -Bioengineered Tissue No -Bleeding Controlled with Pressure -Offloading No -Treatment Response Procedure Tolerated Well -Debridement - Subq, 1st 20sq cm No #21 R [place] Orellana -Time 12:11 -Correct Patient Yes -Correct Side, Site, Position Yes -Correct Procedure Yes -Procedure Performed Yes -Type of Procedure Debridement -Clinical Debridement Subcutaneous -Tissue Removed Subcutaneous -Post Debridement (cm) - Length 0.6 -Post Debridement (cm) - Width 0.6 -Post Debridement (cm) - Depth 0.1 -Total Square (Post) (cm) 0.36 -Area of Debridement (cm) - Length 0.6 -Area of Debridement (cm) - Width 0.6 -Total Square (Area) (cm) 0.36 -Tunneling No -Undermining/Tunneling No -Circular Undermining No -Wound/Ulcer Outcome Not Healed -Ulcer Cleansing Rinsed/ Irrigated with Saline -Foul Odor after Cleansing No -Bioengineered Tissue No -Bleeding Controlled with Pressure -Offloading No -Treatment Response Procedure Tolerated Well -Debridement - Subq, 1st 20sq cm No #20 R [place] sup -Time 12:12 -Correct Patient Yes -Correct Side, Site, Position Yes -Correct Procedure Yes -Procedure Performed Yes -Type of Procedure Debridement -Clinical Debridement Subcutaneous -Tissue Removed Subcutaneous -Post Debridement (cm) - Length 1 -Post Debridement (cm) - Width 0.5 -Post Debridement (cm) - Depth 0.1 -Total Square (Post) (cm) 0.5 -Area of Debridement (cm) - Length 1.0 -Area of Debridement (cm) - Width 0.5 -Total Square (Area) (cm) 0.50 -Tunneling No -Undermining/Tunneling No -Circular Undermining No -Wound/Ulcer Outcome Not Healed -Ulcer Cleansing Rinsed/ Irrigated with Saline -Foul Odor after Cleansing No -Bioengineered Tissue No -Bleeding Controlled with Pressure -Offloading No -Treatment Response Procedure Tolerated Well -Debridement - Subq, 1st 20sq cm No #18 R Grt toe lat -Time 12:13 -Correct Patient Yes -Correct Side, Site, Position Yes -Correct Procedure Yes -Procedure Performed Yes -Type of Procedure Debridement -Clinical Debridement Subcutaneous -Tissue Removed Subcutaneous -Post Debridement (cm) - Length 0.8 -Post Debridement (cm) - Width 0.6 -Post Debridement (cm) - Depth 0.1 -Total Square (Post) (cm) 0.48 -Area of Debridement (cm) - Length 0.8 -Area of Debridement (cm) - Width 0.6 -Total Square (Area) (cm) 0.48 -Tunneling No -Undermining/Tunneling No -Circular Undermining No -Wound/Ulcer Outcome Not Healed -Ulcer Cleansing Rinsed/ Irrigated with Saline -Foul Odor after Cleansing No -Bioengineered Tissue No -Bleeding Controlled with Pressure -Offloading No -Treatment Response Procedure Tolerated Well -Debridement - Subq, 20sq cm No #11 RIGHT MEDIAL FOOT -Time 12:13 -Correct Patient Yes -Correct Side, Site, Position Yes -Correct Procedure Yes -Procedure Performed Yes -Type of Procedure Debridement -Clinical Debridement Subcutaneous -Tissue Removed Subcutaneous -Post Debridement (cm) - Length 3.3 -Post Debridement (cm) - Width 2.1 -Post Debridement (cm) - Depth 0.3 -Total Square (Post) (cm) 6.93 -Area of Debridement (cm) - Length 3.3 -Area of Debridement (cm) - Width 2.1 -Total Square (Area) (cm) 6.93 -Tunneling No -Undermining/Tunneling No -Circular Undermining No -Wound/Ulcer Outcome Not Healed -Ulcer Cleansing Rinsed/ Irrigated with Saline -Foul Odor after Cleansing No -Bioengineered Tissue No -Bleeding Controlled with Pressure -Offloading No -Treatment Response Procedure Tolerated Well -Debridement - Subq, 1st 20sq cm No #6 POSTERIOR LLE -Time 12:14 -Correct Patient Yes -Correct Side, Site, Position Yes -Correct Procedure Yes -Procedure Performed Yes -Type of Procedure Debridement -Clinical Debridement Subcutaneous -Tissue Removed Subcutaneous -Post Debridement (cm) - Length 5.5 -Post Debridement (cm) - Width 1.1 -Post Debridement (cm) - Depth 0.5 -Total Square (Post) (cm) 6.05 -Area of Debridement (cm) - Length 5.5 -Area of Debridement (cm) - Width 1.1 -Total Square (Area) (cm) 6.05 -Tunneling No -Undermining/Tunneling No -Circular Undermining No -Wound/Ulcer Outcome Not Healed -Ulcer Cleansing Rinsed/ Irrigated with Saline -Foul Odor after Cleansing No -Bioengineered Tissue No -Bleeding Controlled with Pressure -Offloading No -Treatment Response Procedure Tolerated Well -Debridement - Subq, 1st 20sq cm No #4 POSTERIOR RLE -Time 12:15 -Correct Patient Yes -Correct Side, Site, Position Yes -Correct Procedure Yes -Procedure Performed Yes -Type of Procedure Debridement -Clinical Debridement Subcutaneous -Tissue Removed Subcutaneous -Post Debridement (cm) - Length 1.1 -Post Debridement (cm) - Width 0.5 -Post Debridement (cm) - Depth 0.1 -Total Square (Post) (cm) 0.55 -Area of Debridement (cm) - Length 1.1 -Area of Debridement (cm) - Width 0.5 -Total Square (Area) (cm) 0.55 -Tunneling No -Undermining/Tunneling No -Circular Undermining No -Wound/Ulcer Outcome Not Healed -Ulcer Cleansing Rinsed/ Irrigated with Saline -Foul Odor after Cleansing No -Bioengineered Tissue No -Bleeding Controlled with Pressure -Offloading No -Treatment Response Procedure Tolerated Well -Debridement - Subq, 1st 20sq cm Yes [See Physician Procedure note for Specifics] Pain Scale: 0-10 Numeric [Pain] -Is Patient Pain Free? Yes WC - Nurse 3 - General Ulcer D/C NN Start: 09/25/20 10:02 Freq: Status: Active Protocol: Activity Type Activity Date Activity User E-Sign Co-Sign Detail Recorded Client Recorded Date Recorded By Document 09/25/20 11:02 [facility] [id number] 09/25/20 11:05 [facility] 09/25/20 11:02 Wound Care Nurse 3 [Wound Dressing] 23-right superior achilles -Ulcer Cleansing Rinsed/ Irrigated with Saline -Foul Odor after Cleansing No -Primary Dressing Applied Aquacel Extra, NonAdherent Contact Layer -Primary Dressing Covered/Secured Dry Gauze & with Roll Gauze, Secured with Tape -Aquacel Extra 1 #22 R [place] inf -Ulcer Cleansing Rinsed/ Irrigated with Saline -Foul Odor after Cleansing No -Primary Dressing Applied Aquacel Extra, NonAdherent Contact Layer -Primary Dressing Covered/Secured Dry Gauze & with Roll Gauze, Secured with Tape -Aquacel Extra 0 #21 R Med [place] -Ulcer Cleansing Rinsed/ Irrigated with Saline -Primary Dressing Applied Aquacel Extra, NonAdherent Contact Layer -Primary Dressing Covered/Secured Dry Gauze & with Roll Gauze, Secured with Tape -Aquacel Extra 0 #20 R med orellana sup -Ulcer Cleansing Rinsed/ Irrigated with Saline -Foul Odor after Cleansing No -Primary Dressing Applied Aquacel Extra, NonAdherent Contact Layer -Primary Dressing Covered/Secured Dry Gauze & with Roll Gauze, Secured with Tape -Aquacel Extra 0 #18 R Grt toe lat -Ulcer Cleansing Rinsed/ Irrigated with Saline -Foul Odor after Cleansing No -Primary Dressing Applied Aquacel Extra, NonAdherent Contact Layer -Primary Dressing Covered/Secured Dry Gauze & with Roll Gauze, Secured with Tape -Aquacel Extra 0 #11 RIGHT MEDIAL FOOT -Ulcer Cleansing Rinsed/ Irrigated with Saline -Foul Odor after Cleansing No -Primary Dressing Applied Aquacel Extra, NonAdherent Contact Layer -Primary Dressing Covered/Secured Dry Gauze & with Roll Gauze, Secured with Tape -Aquacel Extra 0 #6 POSTERIOR LLE -Ulcer Cleansing Rinsed/ Irrigated with Saline -Foul Odor after Cleansing No -Primary Dressing Applied Aquacel Extra, NonAdherent Contact Layer -Primary Dressing Covered/Secured Dry Gauze & with Roll Gauze, Secured with Tape -Aquacel Extra 0 #4 POSTERIOR RLE -Ulcer Cleansing Rinsed/ Irrigated with Saline -Foul Odor after Cleansing No -Primary Dressing Applied Aquacel Extra, NonAdherent Contact Layer -Primary Dressing Covered/Secured Dry Gauze & with Roll Gauze, Secured with Tape -Aquacel Extra 0 [Compression Applied] Right -Compression Wrap Joao Wrap Left -Compression Wrap Joao Wrap [Post Procedure Tolerated] -Treatment Response Procedure Tolerated Well Pain Scale: 0-10 Numeric [Pain] -Is Patient Pain Free? Yes WC - Visit Discharge [Visit Discharge Information] -Discharge Condition Stable -Ambulatory Status Wheelchair -Transportation Private Auto -Accompanied by Musculoskeletal: No Tenderness to Palpation of Joints or Extremities, Muscle Wasting Neurological: - - Lack of normal epicritic sensation light touch is consistent with his neuropathy status Psych/Mental Status: Normal Affect, Appropriate Debridement Note Post-Debridement Measurements/Treatment WC - Nurse 2 - General Ulcer CM Notes Start: 09/25/20 10:02 Freq: Status: Active Protocol: Activity Type Activity Date Activity User E-Sign Co-Sign Detail Recorded Client Recorded Date Recorded By Document 09/25/20 12:06 JAMAL [id number] 09/25/20 12:19 JAMAL 09/25/20 12:06 Wound Center Nurse 2 #24 L Knee -Correct Patient No -Correct Side, Site, Position No -Correct Procedure No -Procedure Performed No -Circular Undermining No -Wound/Ulcer Outcome Not Healed 23-right superior achilles -Time 12:07 -Correct Patient Yes -Correct Side, Site, Position Yes -Correct Procedure Yes -Procedure Performed Yes -Type of Procedure Debridement -Clinical Debridement Subcutaneous -Tissue Removed Subcutaneous -Post Debridement (cm) - Length 1.2 -Post Debridement (cm) - Width 1.2 -Post Debridement (cm) - Depth 0.3 -Total Square (Post) (cm) 1.44 -Area of Debridement (cm) - Length 1.2 -Area of Debridement (cm) - Width 1.2 -Total Square (Area) (cm) 1.44 -Tunneling No -Undermining/Tunneling No -Circular Undermining No -Wound/Ulcer Outcome Not Healed -Ulcer Cleansing Rinsed/ Irrigated with Saline -Foul Odor after Cleansing No -Bioengineered Tissue No -Bleeding Controlled with Pressure -Offloading No -Treatment Response Procedure Tolerated Well -Debridement - Subq, 1st 20sq cm No #22 R [place] inf -Time 12:11 -Correct Patient Yes -Correct Side, Site, Position Yes -Correct Procedure Yes -Procedure Performed Yes -Type of Procedure Debridement -Clinical Debridement Subcutaneous -Tissue Removed Subcutaneous -Post Debridement (cm) - Length 0.2 -Post Debridement (cm) - Width 0.2 -Post Debridement (cm) - Depth 0.1 -Total Square (Post) (cm) 0.04 -Area of Debridement (cm) - Length 0.2 -Area of Debridement (cm) - Width 0.2 -Total Square (Area) (cm) 0.04 -Tunneling No -Undermining/Tunneling No -Circular Undermining No -Wound/Ulcer Outcome Not Healed -Ulcer Cleansing Rinsed/ Irrigated with Saline -Foul Odor after Cleansing No -Bioengineered Tissue No -Bleeding Controlled with Pressure -Offloading No -Treatment Response Procedure Tolerated Well -Debridement - Subq, 1st 20sq cm No #21 R Med Orellana -Time 12:11 -Correct Patient Yes -Correct Side, Site, Position Yes -Correct Procedure Yes -Procedure Performed Yes -Type of Procedure Debridement -Clinical Debridement Subcutaneous -Tissue Removed Subcutaneous -Post Debridement (cm) - Length 0.6 -Post Debridement (cm) - Width 0.6 -Post Debridement (cm) - Depth 0.1 -Total Square (Post) (cm) 0.36 -Area of Debridement (cm) - Length 0.6 -Area of Debridement (cm) - Width 0.6 -Total Square (Area) (cm) 0.36 -Tunneling No -Undermining/Tunneling No -Circular Undermining No -Wound/Ulcer Outcome Not Healed -Ulcer Cleansing Rinsed/ Irrigated with Saline -Foul Odor after Cleansing No -Bioengineered Tissue No -Bleeding Controlled with Pressure -Offloading No -Treatment Response Procedure Tolerated Well -Debridement - Subq, 20sq cm No #20 R med orellana sup -Time 12:12 -Correct Patient Yes -Correct Side, Site, Position Yes -Correct Procedure Yes -Procedure Performed Yes -Type of Procedure Debridement -Clinical Debridement Subcutaneous -Tissue Removed Subcutaneous -Post Debridement (cm) - Length 1 -Post Debridement (cm) - Width 0.5 -Post Debridement (cm) - Depth 0.1 -Total Square (Post) (cm) 0.5 -Area of Debridement (cm) - Length 1.0 -Area of Debridement (cm) - Width 0.5 -Total Square (Area) (cm) 0.50 -Tunneling No -Undermining/Tunneling No -Circular Undermining No -Wound/Ulcer Outcome Not Healed -Ulcer Cleansing Rinsed/ Irrigated with Saline -Foul Odor after Cleansing No -Bioengineered Tissue No -Bleeding Controlled with Pressure -Offloading No -Treatment Response Procedure Tolerated Well -Debridement - Subq, 1st 20sq cm No #18 R Grt toe lat -Time 12:13 -Correct Patient Yes -Correct Side, Site, Position Yes -Correct Procedure Yes -Procedure Performed Yes -Type of Procedure Debridement -Clinical Debridement Subcutaneous -Tissue Removed Subcutaneous -Post Debridement (cm) - Length 0.8 -Post Debridement (cm) - Width 0.6 -Post Debridement (cm) - Depth 0.1 -Total Square (Post) (cm) 0.48 -Area of Debridement (cm) - Length 0.8 -Area of Debridement (cm) - Width 0.6 -Total Square (Area) (cm) 0.48 -Tunneling No -Undermining/Tunneling No -Circular Undermining No -Wound/Ulcer Outcome Not Healed -Ulcer Cleansing Rinsed/ Irrigated with Saline -Foul Odor after Cleansing No -Bioengineered Tissue No -Bleeding Controlled with Pressure -Offloading No -Treatment Response Procedure Tolerated Well -Debridement - Subq, 1st 20sq cm No #11 RIGHT MEDIAL FOOT -Time 12:13 -Correct Patient Yes -Correct Side, Site, Position Yes -Correct Procedure Yes -Procedure Performed Yes -Type of Procedure Debridement -Clinical Debridement Subcutaneous -Tissue Removed Subcutaneous -Post Debridement (cm) - Length 3.3 -Post Debridement (cm) - Width 2.1 -Post Debridement (cm) - Depth 0.3 -Total Square (Post) (cm) 6.93 -Area of Debridement (cm) - Length 3.3 -Area of Debridement (cm) - Width 2.1 -Total Square (Area) (cm) 6.93 -Tunneling No -Undermining/Tunneling No -Circular Undermining No -Wound/Ulcer Outcome Not Healed -Ulcer Cleansing Rinsed/ Irrigated with Saline -Foul Odor after Cleansing No -Bioengineered Tissue No -Bleeding Controlled with Pressure -Offloading No -Treatment Response Procedure Tolerated Well -Debridement - Subq, 1st 20sq cm No #6 POSTERIOR LLE -Time 12:14 -Correct Patient Yes -Correct Side, Site, Position Yes -Correct Procedure Yes -Procedure Performed Yes -Type of Procedure Debridement -Clinical Debridement Subcutaneous -Tissue Removed Subcutaneous -Post Debridement (cm) - Length 5.5 -Post Debridement (cm) - Width 1.1 -Post Debridement (cm) - Depth 0.5 -Total Square (Post) (cm) 6.05 -Area of Debridement (cm) - Length 5.5 -Area of Debridement (cm) - Width 1.1 -Total Square (Area) (cm) 6.05 -Tunneling No -Undermining/Tunneling No -Circular Undermining No -Wound/Ulcer Outcome Not Healed -Ulcer Cleansing Rinsed/ Irrigated with Saline -Foul Odor after Cleansing No -Bioengineered Tissue No -Bleeding Controlled with Pressure -Offloading No -Treatment Response Procedure Tolerated Well -Debridement - Subq, 1st 20sq cm No #4 POSTERIOR RLE -Time 12:15 -Correct Patient Yes -Correct Side, Site, Position Yes -Correct Procedure Yes -Procedure Performed Yes -Type of Procedure Debridement -Clinical Debridement Subcutaneous -Tissue Removed Subcutaneous -Post Debridement (cm) - Length 1.1 -Post Debridement (cm) - Width 0.5 -Post Debridement (cm) - Depth 0.1 -Total Square (Post) (cm) 0.55 -Area of Debridement (cm) - Length 1.1 -Area of Debridement (cm) - Width 0.5 -Total Square (Area) (cm) 0.55 -Tunneling No -Undermining/Tunneling No -Circular Undermining No -Wound/Ulcer Outcome Not Healed -Ulcer Cleansing Rinsed/ Irrigated with Saline -Foul Odor after Cleansing No -Bioengineered Tissue No -Bleeding Controlled with Pressure -Offloading No -Treatment Response Procedure Tolerated Well -Debridement - Subq, 1st 20sq cm Yes Pain Scale: 0-10 Numeric Is Patient Pain Free? Yes WC - Nurse 3 - General Ulcer D/C NN Start: 09/25/20 10:02 Freq: Status: Active Protocol: Activity Type Activity Date Activity User E-Sign Co-Sign Detail Recorded Client Recorded Date Recorded By Document 09/25/20 11:02 [facility] [id number] 09/25/20 11:05 [facility] 09/25/20 11:02 Wound Care Nurse 3 23-right superior achilles -Ulcer Cleansing Rinsed/ Irrigated with Saline -Foul Odor after Cleansing No -Primary Dressing Applied Aquacel Extra, NonAdherent Contact Layer -Primary Dressing Covered/Secured with Dry Gauze & Roll Gauze, Secured with Tape -Aquacel Extra 1 #22 R [place] inf -Ulcer Cleansing Rinsed/ Irrigated with Saline -Foul Odor after Cleansing No -Primary Dressing Applied Aquacel Extra, NonAdherent Contact Layer -Primary Dressing Covered/Secured with Dry Gauze & Roll Gauze, Secured with Tape -Aquacel Extra 0 #21 R Med [place] -Ulcer Cleansing Rinsed/ Irrigated with Saline -Primary Dressing Applied Aquacel Extra, NonAdherent Contact Layer -Primary Dressing Covered/Secured with Dry Gauze & Roll Gauze, Secured with Tape -Aquacel Extra 0 #20 R med orellana sup -Ulcer Cleansing Rinsed/ Irrigated with Saline -Foul Odor after Cleansing No -Primary Dressing Applied Aquacel Extra, NonAdherent Contact Layer -Primary Dressing Covered/Secured with Dry Gauze & Roll Gauze, Secured with Tape -Aquacel Extra 0 #18 R Grt toe lat -Ulcer Cleansing Rinsed/ Irrigated with Saline -Foul Odor after Cleansing No -Primary Dressing Applied Aquacel Extra, NonAdherent Contact Layer -Primary Dressing Covered/Secured with Dry Gauze & Roll Gauze, Secured with Tape -Aquacel Extra 0 #11 RIGHT MEDIAL FOOT -Ulcer Cleansing Rinsed/ Irrigated with Saline -Foul Odor after Cleansing No -Primary Dressing Applied Aquacel Extra, NonAdherent Contact Layer -Primary Dressing Covered/Secured with Dry Gauze & Roll Gauze, Secured with Tape -Aquacel Extra 0 #6 POSTERIOR LLE -Ulcer Cleansing Rinsed/ Irrigated with Saline -Foul Odor after Cleansing No -Primary Dressing Applied Aquacel Extra, NonAdherent Contact Layer -Primary Dressing Covered/Secured with Dry Gauze & Roll Gauze, Secured with Tape -Aquacel Extra 0 #4 POSTERIOR RLE -Ulcer Cleansing Rinsed/ Irrigated with Saline -Foul Odor after Cleansing No -Primary Dressing Applied Aquacel Extra, NonAdherent Contact Layer -Primary Dressing Covered/Secured with Dry Gauze & Roll Gauze, Secured with Tape -Aquacel Extra 0 Right -Compression Wrap Joao Wrap Left -Compression Wrap Joao Wrap Treatment Response Procedure Tolerated Well Pain Scale: 0-10 Numeric Is Patient Pain Free? Yes WC - Visit Discharge Discharge Condition Stable Ambulatory Status Wheelchair Transportation Private Auto Accompanied by Wound debrided: medial plantar foot, posterior lower leg Laterality: Right Wound Grade/Stage: grade 3 Type of Debridement: Excisional debridement Anesthesia Used: 5% Lidocaine Gel Depth: in the subcutaneous layer Percentage of wound debrided: 100 Instrument Used: #15 blade Tissue Removed: fibrous, devitalized subcutaneous, biofilm, slough Severity: Fat Layer Exposed Amount of bleeding with debridement: Mild Bleeding Controlled with: Pressure Patient tolerated procedure well - Additional Wound Wound debrided: plantar medial 1 metatarsal head and hallux, anterior leg ulcerrs Laterality: Right Wound Grade/Stage: grade 1 Type of Debridement: Excisional debridement Anesthesia Used: 5% Lidocaine Gel Depth: in the subcutaneous layer Percentage of wound debrided: 100 Instrument Used: #15 blade Tissue Removed: fibrous, devitalized subcutaneous, biofilm, slough Severity: Fat Layer Exposed Amount of bleeding with debridement: Mild Bleeding Controlled with: Pressure Patient tolerated procedure: Patient tolerated procedure well - Additional Wound Wound debrided: posterior leg Laterality: Left Wound Grade/Stage: grade 2 Type of Debridement: Excisional debridement Anesthesia Used: 5% Lidocaine Gel Depth: in the subcutaneous layer Percentage of wound debrided: 100 Instrument Used: #15 blade Tissue Removed: fibrous, devitalized subcutaneous, biofilm, slough Severity: Fat Layer Exposed Amount of bleeding with debridement: Mild Bleeding Controlled with: Pressure Patient tolerated procedure: Patient tolerated procedure well Assessment/Plan Active Problems (Last Updated 09/28/18 @ 12:41 by Geraldine Steele) 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 -Right plantar medial first metatarsal head ulcer at prior skin tear site, grade 1. -Right posterior leg ulcer grade 1, no infection. -right anterior leg ulcers (medial, superior, anterior, inferior) grade 1, no infection. -right anterior proximal leg ulcer grade 1, no infection. -new left leg ulcer proximal to tibial tuberosity, no infection. -Prior status post operating room excisional subcutaneous and tendon debridements to bilateral legs and right foot with additional application of advanced wound healing products to bilateral posterior lower legs--no infection and stable today -improvement noted. 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 -previous bilateral leg fasciotomies and debridements and irrigation performed previously now with right and left leg ulcers with fat and tendon layers exposed. -diabetic neuropathy. -malnutrition suspected. 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 -delayed healing. -gait impairment and fall risk. -other comorbidities. -Continued smoking habits Plan: I reviewed and discussed his case today. Debridement was performed to all sites as noted in the nursing panel in a subcutaneous excisional manner. Compliance was reviewed while he is outside he needs to wear a cam walker to avoid these types of injuries. To change daily with [id number] Ag and Adaptic. It is noted he is taking Metanx for neuropathy symptoms and is doing well so far; he was advised to continue. He was reassured no local or systemic signs of illness is suspected today. To continue increased protein intake with nutritional supplementation. To continue glycemic control. He had a previous arterial Doppler scheduled with Dr. Morgan's staff on August 02, 2018 and overall perfusion was confirmed; additional intervention or workup was not recommended. It is also noted that he did have venous Doppler performed with reflux evaluation. He did not have evidence of deep venous thrombosis or venous insufficiency at that time; the vessels were compressible. I recommend he sustained from smoking and alcohol activities to optimize healing as well. Smoking cessation was encouraged. He elects to proceed with a more palliative care plan and will return to clinic in 2 weeks. Prior workup summary: His workup for vasculitis and underlying autoimmune disorder has been completed. A punch biopsy was sent during his last surgical intervention on June 10 and this demonstrated inflammatory changes without malignancy. He had initial screening labs and so far he has a negative RA titer, HL of the 27, KEVIN, anti-CCP, and rheumatoid factor. Several his antibody screenings were not reportable. Hyperbaric oxygen therapy was recommended and it is noted his ejection fraction was most recently 50%. He refuses at this time. . I answered his questions. To return to the wound healing center in 2 week. Due to coronavirus pandemic, reduced in person visits are offered. To call sooner if he has any questions or concerns. He will return in two weeks for debridement. . Quality measures reviewed as the following: Updated today: Medication and allergy reconciliation, pain status and follow-up plan. updated 01-10-2020- he denies falls this past year. Reviewed on 11-29-2019: up-to-date pneumonia vaccination status, he has not up-to-date influenza immunization performed in 09/2019, he does have a living will on file. He is a smoker and smoking cessation was reviewed. He does have elevated blood pressure at or above 120/80 mmHg and also elevated body mass index. For these issues I recommend he follows up with his primary care physician as scheduled. He was counseled on the importance of diet and exercise as well. Quality measures reviewed as the following: Updated today: Medication and allergy reconciliation, pain status and follow-up plan. Reviewed on 11-29-2019: up-to-date pneumonia vaccination status, he has not up-to-date influenza immunization performed in 09/2019, he does have a living will on file. He is a smoker and smoking cessation was reviewed. He does have elevated blood pressure at or above 120/80 mmHg and also elevated body mass index. For these issues I recommend he follows up with his primary care physician as scheduled. He was counseled on the importance of diet and exercise as well.
[2020-10-09 08:38] VITALS: BP 135/97; PULSE 107; RESP 18; TEMP 36.1; BMI 32.3
[2020-10-09 10:02] VITALS: BP 140/82
--- NOTE | 2020-10-09 10:03 | WC ---
aquacel extra to all wounds and adaptic also to smaller wounds
--- NOTE | 2020-10-09 13:37 | PN.PCM_ITS ---
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 Status: Chronic Code(s): L97.913 - Non-pressure chronic ulcer of unspecified part of right lower leg with necrosis of muscle (3) Ulcer of right lower extremity with fat layer exposed Status: Chronic Code(s): L97.912 - Non-pressure chronic ulcer of unspecified part of right lower leg with fat layer exposed (4) Type 2 diabetes mellitus with diabetic polyneuropathy Status: Chronic Code(s): E11.42 - Type 2 diabetes mellitus with diabetic polyneuropathy (5) Delayed wound healing Status: Chronic Code(s): T14.8XXD - Other injury of unspecified body region, subsequent encounter (6) Ulcer of left lower extremity with fat layer exposed Status: Chronic Code(s): L97.922 - Non-pressure chronic ulcer of unspecified part of left lower leg with fat layer exposed (7) Localized edema Status: Chronic Code(s): R60.0 - Localized edema Type of Wound Date of Service: 10/09/20 Chief Complaint: right and left Leg ulcers and right foot ulcer History of Wound: Mr. Arguello is a 65-year-old male with multiple comorbidities follows up for delayed healing ulcers to the right foot as well as bilateral l egs. He denies chills, fever, nausea, or vomiting. He denies odor or redness. He denies pain. He changes the dressings as advised with Adaptic and Aquacel Ag. He is with his today. He continues to smoke about 7 cigarettes daily. Progress of Wound: stable - Physical Exam Vital Signs Temp Pulse Resp BP 97 F L 107 H 18 140/82 H 10/09/20 08:38 10/09/20 08:38 10/09/20 08:38 10/09/20 10:02 General: Alert, Oriented x3, Cooperative, No apparent distress Extremities: No cyanosis, Capillary Refill Less than 3 Seconds, No Calf Tenderness, Diminished Peripheral Pulses, Edema Skin: Ulcer/ Wound - no purulence, no odor, no infection, no eschar. no deep tissue exposure bilateral. adjacent skin atrophic changes noted Wound Measurements and Assessment WC - Nurse 1 - General Ulcer Measurement Start: 09/25/20 10:02 Freq: Status: Active Protocol: Activity Type Activity Date Activity User E-Sign Co-Sign Detail Recorded Client Recorded Date Recorded By Document 10/09/20 08:38 RB [id number] 10/09/20 09:12 RB 10/09/20 08:38 Wound Center Nurse 1 [Ulcer Assessment] 23-right superior achilles -Current Size (cm) - Length 4.2 -Current Size (cm) - Width 2.5 -Current Size (cm) - Depth 0.3 -Total Square Cm 10.50 -Tunneling No -Undermining/Tunneling No -Circular Undermining No -Exudate Amt Medium -Exudate Type Serosanguineous -Wound Margin Flat & Intact -Granulation Amt Medium (34-66%) -Granulation Quality [place] -Slough/Fibrin Yes -Necrosis Amt Small (1-33%) -Necrotic Tissue Type Adherent Slough -Structure Exposed N/A -Texture (Lisa-wound Skin Appearance) Assessed, Scarring -Moisture (Lisa-wound Skin Appearance Assessed,Dry/ ) Scaly -Color (Lisa-wound Skin Appearance) Assessed -Temperature (Lisa-wound Skin No Abnormality Appearance) (Pt Warm) -Tenderness on Palpation (Lisa-wound No Skin Appearance) -Ulcer Cleansing Wound Cleanser -Foul Odor after Cleansing No -Anesthetic Used 4% Lidocaine Solution #21 R Med [place] -Combined with other wound No -Current Size (cm) - Length 3 -Current Size (cm) - Width 1.5 -Current Size (cm) - Depth 0.1 -Total Square Cm 4.5 -Tunneling No -Undermining/Tunneling No -Circular Undermining No -Exudate Amt Small -Exudate Type Serosanguineous -Wound Margin Flat & Intact -Granulation Amt Medium (34-66%) -Granulation Quality [place] -Slough/Fibrin Yes -Necrosis Amt Small (1-33%) -Necrotic Tissue Type Adherent Slough -Texture (Lisa-wound Skin Appearance) Assessed, Scarring -Moisture (Lisa-wound Skin Appearance Assessed,Dry/ ) Scaly -Color (Lisa-wound Skin Appearance) Assessed -Temperature (Lisa-wound Skin No Abnormality Appearance) (Pt Warm) -Ulcer Cleansing Wound Cleanser -Foul Odor after Cleansing No -Anesthetic Used 4% Lidocaine Solution #20 R med orellana sup -Combined with other wound No -Current Size (cm) - Length 0.5 -Current Size (cm) - Width 0.3 -Current Size (cm) - Depth 0.1 -Total Square Cm 0.15 -Tunneling No -Undermining/Tunneling No -Circular Undermining No -Exudate Amt Small -Exudate Type Serosanguineous -Wound Margin Flat & Intact -Granulation Amt Medium (34-66%) -Granulation Quality [place] -Slough/Fibrin Yes -Necrosis Amt Small (1-33%) -Necrotic Tissue Type Adherent Slough -Structure Exposed N/A -Texture (Lisa-wound Skin Appearance) Assessed -Moisture (Lisa-wound Skin Appearance Dry/Scaly ) -Color (Lisa-wound Skin Appearance) Assessed -Temperature (Lisa-wound Skin No Abnormality Appearance) (Pt Warm) -Tenderness on Palpation (Lisa-wound No Skin Appearance) -Ulcer Cleansing Wound Cleanser -Foul Odor after Cleansing No -Anesthetic Used 4% Lidocaine Solution #18 R Grt toe lat -Combined with other wound No -Current Size (cm) - Length 0.7 -Current Size (cm) - Width 0.5 -Current Size (cm) - Depth 0.1 -Total Square Cm 0.35 -Tunneling No -Undermining/Tunneling No -Circular Undermining No -Exudate Amt Small -Exudate Type Serosanguineous -Wound Margin Flat & Intact -Granulation Amt Medium (34-66%) -Granulation Quality [place] -Slough/Fibrin Yes -Necrosis Amt Small (1-33%) -Necrotic Tissue Type Adherent Slough -Structure Exposed N/A -Texture (Lisa-wound Skin Appearance) Assessed -Moisture (Lisa-wound Skin Appearance Assessed,Dry/ ) Scaly -Color (Lisa-wound Skin Appearance) Assessed -Temperature (Lisa-wound Skin No Abnormality Appearance) (Pt Warm) -Tenderness on Palpation (Lisa-wound No Skin Appearance) -Ulcer Cleansing Wound Cleanser -Foul Odor after Cleansing No -Anesthetic Used 4% Lidocaine Solution #11 RIGHT MEDIAL FOOT -Combined with other wound No -Current Size (cm) - Length 3.5 -Current Size (cm) - Width 2.7 -Current Size (cm) - Depth 0.3 -Total Square Cm 9.45 -Tunneling No -Undermining/Tunneling No -Circular Undermining No -Exudate Amt Small -Exudate Type Serosanguineous -Wound Margin Flat & Intact -Granulation Amt Medium (34-66%) -Granulation Quality [place] -Slough/Fibrin Yes -Necrosis Amt Small (1-33%) -Necrotic Tissue Type Adherent Slough -Structure Exposed N/A -Texture (Lisa-wound Skin Appearance) Assessed -Moisture (Lisa-wound Skin Appearance Dry/Scaly ) -Color (Lisa-wound Skin Appearance) Assessed -Temperature (Lisa-wound Skin No Abnormality Appearance) (Pt Warm) -Tenderness on Palpation (Lisa-wound No Skin Appearance) -Ulcer Cleansing Wound Cleanser -Foul Odor after Cleansing No -Anesthetic Used 4% Lidocaine Solution #6 POSTERIOR LLE -Combined with other wound No -Current Size (cm) - Length 5 -Current Size (cm) - Width 1 -Current Size (cm) - Depth 0.3 -Total Square Cm 5 -Tunneling No -Undermining/Tunneling No -Circular Undermining No -Exudate Amt Medium -Exudate Type Serosanguineous -Wound Margin Flat & Intact -Granulation Amt Medium (34-66%) -Granulation Quality [place] -Slough/Fibrin Yes -Necrosis Amt Small (1-33%) -Necrotic Tissue Type Adherent Slough -Structure Exposed N/A -Texture (Lisa-wound Skin Appearance) Assessed -Moisture (Lisa-wound Skin Appearance Assessed ) -Color (Lisa-wound Skin Appearance) Assessed -Temperature (Lisa-wound Skin No Abnormality Appearance) (Pt Warm) -Tenderness on Palpation (Lisa-wound No Skin Appearance) -Ulcer Cleansing Wound Cleanser -Foul Odor after Cleansing No -Anesthetic Used 4% Lidocaine Solution #4 POSTERIOR RLE -Current Size (cm) - Length 1 -Current Size (cm) - Width 1.5 -Current Size (cm) - Depth 0.1 -Total Square Cm 1.5 -Tunneling No -Undermining/Tunneling No -Circular Undermining No -Exudate Amt Small -Exudate Type Serosanguineous -Wound Margin Flat & Intact -Granulation Amt Medium (34-66%) -Granulation Quality [place] -Slough/Fibrin Yes -Necrosis Amt Small (1-33%) -Necrotic Tissue Type Adherent Slough -Structure Exposed N/A -Texture (Lisa-wound Skin Appearance) Assessed -Moisture (Lisa-wound Skin Appearance Dry/Scaly ) -Color (Lisa-wound Skin Appearance) Assessed -Temperature (Lisa-wound Skin No Abnormality Appearance) (Pt Warm) -Tenderness on Palpation (Lisa-wound No Skin Appearance) -Ulcer Cleansing Wound Cleanser -Foul Odor after Cleansing No -Anesthetic Used 4% Lidocaine Solution [Edema Assessment] -Lower Limb Edema Present Yes -Right Calf (cm) 37.2 -Right Ankle (cm) 21.7 -Left Calf (cm) 37 -Left Ankle (cm) 21.8 WC - Nurse 2 - General Ulcer CM Notes Start: 09/25/20 10:02 Freq: Status: Active Protocol: Activity Type Activity Date Activity User E-Sign Co-Sign Detail Recorded Client Recorded Date Recorded By Document 10/09/20 13:09 JAMAL [id number] 10/09/20 13:16 JAMAL 10/09/20 13:09 Wound Center Nurse 2 [Procedure/Treatment] 23-right superior achilles -Time 13:09 -Correct Patient Yes -Correct Side, Site, Position Yes -Correct Procedure Yes -Procedure Performed Yes -Type of Procedure Debridement -Clinical Debridement Subcutaneous -Tissue Removed Subcutaneous -Post Debridement (cm) - Length 4.2 -Post Debridement (cm) - Width 2.6 -Post Debridement (cm) - Depth 0.3 -Total Square (Post) (cm) 10.92 -Area of Debridement (cm) - Length 4.2 -Area of Debridement (cm) - Width 2.6 -Total Square (Area) (cm) 10.92 -Tunneling No -Undermining/Tunneling No -Circular Undermining No -Wound/Ulcer Outcome Not Healed -Ulcer Cleansing Rinsed/ Irrigated with Saline -Foul Odor after Cleansing No -Bioengineered Tissue No -Bleeding Controlled with Pressure -Offloading No -Treatment Response Procedure Tolerated Well -Debridement - Subq, 1st 20sq cm No #21 R Med [place] -Time 13:10 -Correct Patient Yes -Correct Side, Site, Position Yes -Correct Procedure Yes -Procedure Performed Yes -Type of Procedure Debridement -Clinical Debridement Subcutaneous -Tissue Removed Subcutaneous -Post Debridement (cm) - Length 3.1 -Post Debridement (cm) - Width 1.6 -Post Debridement (cm) - Depth 0.1 -Total Square (Post) (cm) 4.96 -Area of Debridement (cm) - Length 3.1 -Area of Debridement (cm) - Width 1.6 -Total Square (Area) (cm) 4.96 -Tunneling No -Undermining/Tunneling No -Circular Undermining No -Ulcer Cleansing Rinsed/ Irrigated with Saline -Foul Odor after Cleansing No -Bioengineered Tissue No -Bleeding Controlled with Pressure -Offloading No -Treatment Response Procedure Tolerated Well -Debridement - Subq, 1st 20sq cm No #20 R med orellana sup -Time 13:11 -Correct Patient Yes -Correct Side, Site, Position Yes -Correct Procedure Yes -Procedure Performed Yes -Type of Procedure Debridement -Clinical Debridement Subcutaneous -Tissue Removed Subcutaneous -Post Debridement (cm) - Length 0.6 -Post Debridement (cm) - Width 0.3 -Post Debridement (cm) - Depth 0.1 -Total Square (Post) (cm) 0.18 -Area of Debridement (cm) - Length 0.6 -Area of Debridement (cm) - Width 0.3 -Total Square (Area) (cm) 0.18 -Tunneling No -Undermining/Tunneling No -Circular Undermining No -Wound/Ulcer Outcome Not Healed -Ulcer Cleansing Rinsed/ Irrigated with Saline -Foul Odor after Cleansing No -Bioengineered Tissue No -Bleeding Controlled with Pressure -Offloading No -Treatment Response Procedure Tolerated Well -Debridement - Subq, 1st 20sq cm No #18 R Grt toe lat -Time 13:11 -Correct Patient Yes -Correct Side, Site, Position Yes -Correct Procedure Yes -Procedure Performed Yes -Type of Procedure Debridement -Clinical Debridement Subcutaneous -Tissue Removed Subcutaneous -Post Debridement (cm) - Length 0.8 -Post Debridement (cm) - Width 0.5 -Post Debridement (cm) - Depth 0.1 -Total Square (Post) (cm) 0.40 -Area of Debridement (cm) - Length 0.8 -Area of Debridement (cm) - Width 0.5 -Total Square (Area) (cm) 0.40 -Tunneling No -Undermining/Tunneling No -Circular Undermining No -Wound/Ulcer Outcome Not Healed -Ulcer Cleansing Rinsed/ Irrigated with Saline -Foul Odor after Cleansing No -Bioengineered Tissue No -Bleeding Controlled with Pressure -Offloading No -Treatment Response Procedure Tolerated Well -Debridement - Subq, 1st 20sq cm No #11 RIGHT MEDIAL FOOT -Time 13:12 -Correct Patient Yes -Correct Side, Site, Position Yes -Correct Procedure Yes -Procedure Performed Yes -Type of Procedure Debridement -Clinical Debridement Subcutaneous -Tissue Removed Subcutaneous -Post Debridement (cm) - Length 3.5 -Post Debridement (cm) - Width 2.8 -Post Debridement (cm) - Depth 0.3 -Total Square (Post) (cm) 9.80 -Area of Debridement (cm) - Length 3.5 -Area of Debridement (cm) - Width 2.8 -Total Square (Area) (cm) 9.80 -Tunneling No -Undermining/Tunneling No -Circular Undermining No -Wound/Ulcer Outcome Not Healed -Ulcer Cleansing Rinsed/ Irrigated with Saline -Foul Odor after Cleansing No -Bioengineered Tissue No -Bleeding Controlled with Pressure -Offloading No -Treatment Response Procedure Tolerated Well -Debridement - Subq, 1st 20sq cm No #6 POSTERIOR LLE -Time 13:13 -Correct Patient Yes -Correct Side, Site, Position Yes -Correct Procedure Yes -Procedure Performed Yes -Type of Procedure Debridement -Clinical Debridement Subcutaneous -Tissue Removed Subcutaneous -Post Debridement (cm) - Length 5.1 -Post Debridement (cm) - Width 1.1 -Post Debridement (cm) - Depth 0.3 -Total Square (Post) (cm) 5.61 -Area of Debridement (cm) - Length 5.1 -Area of Debridement (cm) - Width 1.1 -Total Square (Area) (cm) 5.61 -Tunneling No -Undermining/Tunneling No -Circular Undermining No -Wound/Ulcer Outcome Not Healed -Ulcer Cleansing Rinsed/ Irrigated with Saline -Foul Odor after Cleansing No -Bioengineered Tissue No -Bleeding Controlled with Pressure -Offloading No -Treatment Response Procedure Tolerated Well -Debridement - Subq, 1st 20sq cm No #4 POSTERIOR RLE -Time 13:14 -Correct Patient Yes -Correct Side, Site, Position Yes -Correct Procedure Yes -Procedure Performed Yes -Type of Procedure Debridement -Clinical Debridement Subcutaneous -Tissue Removed Subcutaneous -Post Debridement (cm) - Length 1.1 -Post Debridement (cm) - Width 1.5 -Post Debridement (cm) - Depth 0.1 -Total Square (Post) (cm) 1.65 -Area of Debridement (cm) - Length 1.1 -Area of Debridement (cm) - Width 1.5 -Total Square (Area) (cm) 1.65 -Tunneling No -Undermining/Tunneling No -Circular Undermining No -Wound/Ulcer Outcome Not Healed -Ulcer Cleansing Rinsed/ Irrigated with Saline -Foul Odor after Cleansing No -Bioengineered Tissue No -Bleeding Controlled with Pressure -Offloading No -Treatment Response Procedure Tolerated Well -Debridement - Subq, 1st 20sq cm Yes -Debridement, SubQ, ea addt'l 20sq cm 1 or part thereof [See Physician Procedure note for Specifics] Pain Scale: 0-10 Numeric [Pain] -Is Patient Pain Free? Yes - Nurse 3 - General Ulcer D/C NN Start: 09/25/20 10:02 Freq: Status: Active Protocol: Activity Type Activity Date Activity User E-Sign Co-Sign Detail Recorded Client Recorded Date Recorded By Document 10/09/20 10:02 KARLEE [id number] 10/09/20 10:04 KARLEE 10/09/20 10:02 Wound Care Nurse 3 [Wound Dressing] #21 R Med [place] -Primary Dressing Applied Aquacel Extra -Primary Dressing Covered/Secured Dry Gauze & with Roll Gauze, Secured with Tape -Aquacel Extra 1 [Compression Applied] Right -Other joao Left -Other joao Vital Signs [Blood Pressure] -Blood Pressure (90/60-120/80) 140/82 H -Blood Pressure Mean (mm Hg) 101 - Visit Discharge [Visit Discharge Information] -Discharge Condition Stable -Ambulatory Status Ambulatory -Transportation Private Auto -Medication Reconcilliation completed No & provided to patient/care provider -Clinical Summary of Care Provided Yes 10/09/20 10:03 Wound Center by Pebbles Juarez aquacvishnu extra to all wounds and adaptic also to smaller wounds Initialized on 10/09/20 10:03 - END OF NOTE Debridement Note Post-Debridement Measurements/Treatment - Nurse 2 - General Ulcer CM Notes Start: 09/25/20 10:02 Freq: Status: Active Protocol: Activity Type Activity Date Activity User E-Sign Co-Sign Detail Recorded Client Recorded Date Recorded By Document 09/25/20 12:06 JAMAL [id number] 09/25/20 12:19 Document 10/09/20 13:09 JAMAL [id number] 10/09/20 13:16 JF 09/25/20 10/09/20 12:06 13:09 Wound Center Nurse 2 #24 L Knee -Correct Patient No -Correct Side, Site, Position No -Correct Procedure No -Procedure Performed No -Circular Undermining No -Wound/Ulcer Outcome Not Healed 23-right superior achilles -Time 12:07 13:09 -Correct Patient Yes Yes -Correct Side, Site, Position Yes Yes -Correct Procedure Yes Yes -Procedure Performed Yes Yes -Type of Procedure Debridement Debridement -Clinical Debridement Subcutaneous Subcutaneous -Tissue Removed Subcutaneous Subcutaneous -Post Debridement (cm) - Length 1.2 4.2 -Post Debridement (cm) - Width 1.2 2.6 -Post Debridement (cm) - Depth 0.3 0.3 -Total Square (Post) (cm) 1.44 10.92 -Area of Debridement (cm) - Length 1.2 4.2 -Area of Debridement (cm) - Width 1.2 2.6 -Total Square (Area) (cm) 1.44 10.92 -Tunneling No No -Undermining/Tunneling No No -Circular Undermining No No -Wound/Ulcer Outcome Not Healed Not Healed -Ulcer Cleansing Rinsed/ Rinsed/ Irrigated with Irrigated with Saline Saline -Foul Odor after Cleansing No No -Bioengineered Tissue No No -Bleeding Controlled with Pressure Pressure -Offloading No No -Treatment Response Procedure Procedure Tolerated Well Tolerated Well -Debridement - Subq, 1st 20sq cm No No #22 R [place] inf -Time 12:11 -Correct Patient Yes -Correct Side, Site, Position Yes -Correct Procedure Yes -Procedure Performed Yes -Type of Procedure Debridement -Clinical Debridement Subcutaneous -Tissue Removed Subcutaneous -Post Debridement (cm) - Length 0.2 -Post Debridement (cm) - Width 0.2 -Post Debridement (cm) - Depth 0.1 -Total Square (Post) (cm) 0.04 -Area of Debridement (cm) - Length 0.2 -Area of Debridement (cm) - Width 0.2 -Total Square (Area) (cm) 0.04 -Tunneling No -Undermining/Tunneling No -Circular Undermining No -Wound/Ulcer Outcome Not Healed -Ulcer Cleansing Rinsed/ Irrigated with Saline -Foul Odor after Cleansing No -Bioengineered Tissue No -Bleeding Controlled with Pressure -Offloading No -Treatment Response Procedure Tolerated Well -Debridement - Subq, 20sq cm No #21 R Med [place] -Time 12:11 13:10 -Correct Patient Yes Yes -Correct Side, Site, Position Yes Yes -Correct Procedure Yes Yes -Procedure Performed Yes Yes -Type of Procedure Debridement Debridement -Clinical Debridement Subcutaneous Subcutaneous -Tissue Removed Subcutaneous Subcutaneous -Post Debridement (cm) - Length 0.6 3.1 -Post Debridement (cm) - Width 0.6 1.6 -Post Debridement (cm) - Depth 0.1 0.1 -Total Square (Post) (cm) 0.36 4.96 -Area of Debridement (cm) - Length 0.6 3.1 -Area of Debridement (cm) - Width 0.6 1.6 -Total Square (Area) (cm) 0.36 4.96 -Tunneling No No -Undermining/Tunneling No No -Circular Undermining No No -Wound/Ulcer Outcome Not Healed -Ulcer Cleansing Rinsed/ Rinsed/ Irrigated with Irrigated with Saline Saline -Foul Odor after Cleansing No No -Bioengineered Tissue No No -Bleeding Controlled with Pressure Pressure -Offloading No No -Treatment Response Procedure Procedure Tolerated Well Tolerated Well -Debridement - Subq, 20sq cm No No #20 R med orellana sup -Time 12:12 13:11 -Correct Patient Yes Yes -Correct Side, Site, Position Yes Yes -Correct Procedure Yes Yes -Procedure Performed Yes Yes -Type of Procedure Debridement Debridement -Clinical Debridement Subcutaneous Subcutaneous -Tissue Removed Subcutaneous Subcutaneous -Post Debridement (cm) - Length 1 0.6 -Post Debridement (cm) - Width 0.5 0.3 -Post Debridement (cm) - Depth 0.1 0.1 -Total Square (Post) (cm) 0.5 0.18 -Area of Debridement (cm) - Length 1.0 0.6 -Area of Debridement (cm) - Width 0.5 0.3 -Total Square (Area) (cm) 0.50 0.18 -Tunneling No No -Undermining/Tunneling No No -Circular Undermining No No -Wound/Ulcer Outcome Not Healed Not Healed -Ulcer Cleansing Rinsed/ Rinsed/ Irrigated with Irrigated with Saline Saline -Foul Odor after Cleansing No No -Bioengineered Tissue No No -Bleeding Controlled with Pressure Pressure -Offloading No No -Treatment Response Procedure Procedure Tolerated Well Tolerated Well -Debridement - Subq, 1st 20sq cm No No #18 R Grt toe lat -Time 12:13 13:11 -Correct Patient Yes Yes -Correct Side, Site, Position Yes Yes -Correct Procedure Yes Yes -Procedure Performed Yes Yes -Type of Procedure Debridement Debridement -Clinical Debridement Subcutaneous Subcutaneous -Tissue Removed Subcutaneous Subcutaneous -Post Debridement (cm) - Length 0.8 0.8 -Post Debridement (cm) - Width 0.6 0.5 -Post Debridement (cm) - Depth 0.1 0.1 -Total Square (Post) (cm) 0.48 0.40 -Area of Debridement (cm) - Length 0.8 0.8 -Area of Debridement (cm) - Width 0.6 0.5 -Total Square (Area) (cm) 0.48 0.40 -Tunneling No No -Undermining/Tunneling No No -Circular Undermining No No -Wound/Ulcer Outcome Not Healed Not Healed -Ulcer Cleansing Rinsed/ Rinsed/ Irrigated with Irrigated with Saline Saline -Foul Odor after Cleansing No No -Bioengineered Tissue No No -Bleeding Controlled with Pressure Pressure -Offloading No No -Treatment Response Procedure Procedure Tolerated Well Tolerated Well -Debridement - Subq, 20sq cm No No #11 RIGHT MEDIAL FOOT -Time 12:13 13:12 -Correct Patient Yes Yes -Correct Side, Site, Position Yes Yes -Correct Procedure Yes Yes -Procedure Performed Yes Yes -Type of Procedure Debridement Debridement -Clinical Debridement Subcutaneous Subcutaneous -Tissue Removed Subcutaneous Subcutaneous -Post Debridement (cm) - Length 3.3 3.5 -Post Debridement (cm) - Width 2.1 2.8 -Post Debridement (cm) - Depth 0.3 0.3 -Total Square (Post) (cm) 6.93 9.80 -Area of Debridement (cm) - Length 3.3 3.5 -Area of Debridement (cm) - Width 2.1 2.8 -Total Square (Area) (cm) 6.93 9.80 -Tunneling No No -Undermining/Tunneling No No -Circular Undermining No No -Wound/Ulcer Outcome Not Healed Not Healed -Ulcer Cleansing Rinsed/ Rinsed/ Irrigated with Irrigated with Saline Saline -Foul Odor after Cleansing No No -Bioengineered Tissue No No -Bleeding Controlled with Pressure Pressure -Offloading No No -Treatment Response Procedure Procedure Tolerated Well Tolerated Well -Debridement - Subq, 20sq cm No No #6 POSTERIOR LLE -Time 12:14 13:13 -Correct Patient Yes Yes -Correct Side, Site, Position Yes Yes -Correct Procedure Yes Yes -Procedure Performed Yes Yes -Type of Procedure Debridement Debridement -Clinical Debridement Subcutaneous Subcutaneous -Tissue Removed Subcutaneous Subcutaneous -Post Debridement (cm) - Length 5.5 5.1 -Post Debridement (cm) - Width 1.1 1.1 -Post Debridement (cm) - Depth 0.5 0.3 -Total Square (Post) (cm) 6.05 5.61 -Area of Debridement (cm) - Length 5.5 5.1 -Area of Debridement (cm) - Width 1.1 1.1 -Total Square (Area) (cm) 6.05 5.61 -Tunneling No No -Undermining/Tunneling No No -Circular Undermining No No -Wound/Ulcer Outcome Not Healed Not Healed -Ulcer Cleansing Rinsed/ Rinsed/ Irrigated with Irrigated with Saline Saline -Foul Odor after Cleansing No No -Bioengineered Tissue No No -Bleeding Controlled with Pressure Pressure -Offloading No No -Treatment Response Procedure Procedure Tolerated Well Tolerated Well -Debridement - Subq, 20sq cm No No #4 POSTERIOR RLE -Time 12:15 13:14 -Correct Patient Yes Yes -Correct Side, Site, Position Yes Yes -Correct Procedure Yes Yes -Procedure Performed Yes Yes -Type of Procedure Debridement Debridement -Clinical Debridement Subcutaneous Subcutaneous -Tissue Removed Subcutaneous Subcutaneous -Post Debridement (cm) - Length 1.1 1.1 -Post Debridement (cm) - Width 0.5 1.5 -Post Debridement (cm) - Depth 0.1 0.1 -Total Square (Post) (cm) 0.55 1.65 -Area of Debridement (cm) - Length 1.1 1.1 -Area of Debridement (cm) - Width 0.5 1.5 -Total Square (Area) (cm) 0.55 1.65 -Tunneling No No -Undermining/Tunneling No No -Circular Undermining No No -Wound/Ulcer Outcome Not Healed Not Healed -Ulcer Cleansing Rinsed/ Rinsed/ Irrigated with Irrigated with Saline Saline -Foul Odor after Cleansing No No -Bioengineered Tissue No No -Bleeding Controlled with Pressure Pressure -Offloading No No -Treatment Response Procedure Procedure Tolerated Well Tolerated Well -Debridement - Subq, 20sq cm Yes Yes -Debridement, SubQ, ea addt'l 20sq cm 1 or part thereof Pain Scale: 0-10 Numeric Is Patient Pain Free? Yes Yes WC - Nurse 3 - General Ulcer D/C NN Start: 09/25/20 10:02 Freq: Status: Active Protocol: Activity Type Activity Date Activity User E-Sign Co-Sign Detail Recorded Client Recorded Date Recorded By Document 09/25/20 11:02 [facility] [id number] 09/25/20 11:05 [facility] Document 10/09/20 10:02 RB [id number] 10/09/20 10:04 RB 09/25/20 10/09/20 11:02 10:02 Wound Care Nurse 3 23-right superior achilles -Ulcer Cleansing Rinsed/ Irrigated with Saline -Foul Odor after Cleansing No -Primary Dressing Applied Aquacel Extra, NonAdherent Contact Layer -Primary Dressing Covered/Secured with Dry Gauze & Roll Gauze, Secured with Tape -Aquacel Extra 1 #22 R [place] inf -Ulcer Cleansing Rinsed/ Irrigated with Saline -Foul Odor after Cleansing No -Primary Dressing Applied Aquacel Extra, NonAdherent Contact Layer -Primary Dressing Covered/Secured with Dry Gauze & Roll Gauze, Secured with Tape -Aquacel Extra 0 #21 R Med [place] -Ulcer Cleansing Rinsed/ Irrigated with Saline -Primary Dressing Applied Aquacel Extra, Aquacel Extra NonAdherent Contact Layer -Primary Dressing Covered/Secured with Dry Gauze & Dry Gauze & Roll Gauze, Roll Gauze, Secured with Secured with Tape Tape -Aquacel Extra 0 1 #20 R med orellana sup -Ulcer Cleansing Rinsed/ Irrigated with Saline -Foul Odor after Cleansing No -Primary Dressing Applied Aquacel Extra, NonAdherent Contact Layer -Primary Dressing Covered/Secured with Dry Gauze & Roll Gauze, Secured with Tape -Aquacel Extra 0 #18 R Grt toe lat -Ulcer Cleansing Rinsed/ Irrigated with Saline -Foul Odor after Cleansing No -Primary Dressing Applied Aquacel Extra, NonAdherent Contact Layer -Primary Dressing Covered/Secured with Dry Gauze & Roll Gauze, Secured with Tape -Aquacel Extra 0 #11 RIGHT MEDIAL FOOT -Ulcer Cleansing Rinsed/ Irrigated with Saline -Foul Odor after Cleansing No -Primary Dressing Applied Aquacel Extra, NonAdherent Contact Layer -Primary Dressing Covered/Secured with Dry Gauze & Roll Gauze, Secured with Tape -Aquacel Extra 0 #6 POSTERIOR LLE -Ulcer Cleansing Rinsed/ Irrigated with Saline -Foul Odor after Cleansing No -Primary Dressing Applied Aquacel Extra, NonAdherent Contact Layer -Primary Dressing Covered/Secured with Dry Gauze & Roll Gauze, Secured with Tape -Aquacel Extra 0 #4 POSTERIOR RLE -Ulcer Cleansing Rinsed/ Irrigated with Saline -Foul Odor after Cleansing No -Primary Dressing Applied Aquacel Extra, NonAdherent Contact Layer -Primary Dressing Covered/Secured with Dry Gauze & Roll Gauze, Secured with Tape -Aquacel Extra 0 Right -Compression Wrap Joao Wrap -Other joao Left -Compression Wrap Joao Wrap -Other joao Treatment Response Procedure Tolerated Well Vital Signs Blood Pressure (90/60-120/80) 140/82 H Blood Pressure Mean (mm Hg) 101 Pain Scale: 0-10 Numeric Is Patient Pain Free? Yes WC - Visit Discharge Discharge Condition Stable Stable Ambulatory Status Wheelchair Ambulatory Transportation Private Auto Private Auto Accompanied by Medication Reconcilliation completed & No provided to patient/care provider Clinical Summary of Care Provided Yes 10/09/20 10:03 Wound Center by [facility] extra to all wounds and adaptic also to smaller wounds Initialized on 10/09/20 10:03 - END OF NOTE Wound debrided: hallux, plantar medial forefoot, anterior leg Laterality: Right Wound Grade/Stage: grade 1 Type of Debridement: Excisional debridement Anesthesia Used: 5% Lidocaine Gel Depth: in the subcutaneous layer Percentage of wound debrided: 100 Instrument Used: #15 blade Tissue Removed: fibrous, devitalized subcutaneous, biofilm, slough Severity: Fat Layer Exposed Amount of bleeding with debridement: Mild Bleeding Controlled with: Pressure Patient tolerated procedure well - Additional Wound Wound debrided: posterior leg, medial plantar foot Laterality: Right - grade 3 Wound Grade/Stage: grade 3 Type of Debridement: Excisional debridement Anesthesia Used: 5% Lidocaine Gel Depth: in the subcutaneous layer Percentage of wound debrided: 100 Instrument Used: #15 blade Tissue Removed: fibrous, devitalized subcutaneous, biofilm, slough Severity: Fat Layer Exposed Amount of bleeding with debridement: Mild Bleeding Controlled with: Pressure Patient tolerated procedure: Patient tolerated procedure well - Additional Wound Wound debrided: posterior leg Laterality: Left Wound Grade/Stage: grade 2 Type of Debridement: Excisional debridement Anesthesia Used: 5% Lidocaine Gel Depth: in the subcutaneous layer Percentage of wound debrided: 100 Instrument Used: #15 blade Tissue Removed: fibrous, devitalized subcutaneous, biofilm, slough Severity: Fat Layer Exposed Amount of bleeding with debridement: Mild Bleeding Controlled with: Pressure Patient tolerated procedure: Patient tolerated procedure well Assessment/Plan Active Problems (Last Updated 09/28/18 @ 12:41 by Geraldine Steele) 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 -Right plantar medial first metatarsal head ulcer at prior skin tear site, grade 1. -Right posterior leg ulcer grade 1, no infection. -right anterior leg ulcers (medial, superior, anterior, inferior) grade 1, no infection. -right anterior proximal leg ulcer grade 1, no infection. -new left leg ulcer proximal to tibial tuberosity, no infection. -Prior status post operating room excisional subcutaneous and tendon debridements to bilateral legs and right foot with additional application of advanced wound healing products to bilateral posterior lower legs--no infection and stable today -improvement noted. 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 - previous bilateral leg fasciotomies and debridements and irrigation performed previously now with right and left leg ulcers with fat and tendon layers exposed. -diabetic neuropathy. -malnutrition suspected. 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 -delayed healing. -gait impairment and fall risk. -other comorbidities. -Continued smoking habits Plan: I reviewed and discussed his case today. Debridement was performed to all sites as noted in the nursing panel in a subcutaneous excisional manner. Compliance was reviewed while he is outside he needs to wear a cam walker to avoid these types of injuries. To change daily with ICAgen and ModuleQ. It is noted he is taking Metanx for neuropathy symptoms and is doing well so far; he was advised to continue. A refill will be provided as requested today. He was reassured no local or systemic signs of illness is suspected today. To continue increased protein intake with nutritional supplementation. To continue glycemic control. He had a previous arterial Doppler scheduled with Dr. Morgan's staff on August 02, 2018 and overall perfusion was confirmed; additional intervention or workup was not recommended. It is also noted that he did have venous Doppler performed with reflux evaluation. He did not have evidence of deep venous thrombosis or venous insufficiency at that time; the vessels were compressible. I recommend he sustained from smoking and alcohol activities to optimize healing as well. Smoking cessation was encouraged. He elects to proceed with a more palliative care plan and will return to clinic in 2 weeks. Prior workup summary: His workup for vasculitis and underlying autoimmune disorder has been completed. A punch biopsy was sent during his last surgical intervention on June 10 and this demonstrated inflammatory changes without malignancy. He had initial screening labs and so far he has a negative RA titer, HL of the 27, KEVIN, anti-CCP, and rheumatoid factor. Several his antibody screenings were not reportable. Hyperbaric oxygen therapy was recommended and it is noted his ejection fraction was most recently 50%. He refuses at this time. . I answered his questions. To return to the wound healing center in 2 week. Due to coronavirus pandemic, reduced in person visits are offered. To call sooner if he has any questions or concerns. He will return in two weeks for debridement. . Quality measures reviewed as the following: Updated today: Medication and allergy reconciliation, pain status and follow-up plan. updated 01-10-2020- he denies falls this past year. Reviewed on 11-29-2019: up-to-date pneumonia vaccination status, he has not up-to-date influenza immunization performed in 09/2019, he does have a living will on file. He is a smoker and smoking cessation was reviewed. He does have elevated blood pressure at or above 120/80 mmHg and also elevated body mass index. For these issues I recommend he follows up with his primary care physician as scheduled. He was counseled on the importance of diet and exercise as well. Quality measures reviewed as the following: Updated today: Medication and allergy reconciliation, pain status and follow-up plan. Reviewed on 11-29-2019: up-to-date pneumonia vaccination status, he has not up-to-date influenza immunization performed in 09/2019, he does have a living will on file. He is a smoker and smoking cessation was reviewed. He does have elevated blood pressure at or above 120/80 mmHg and also elevated body mass index. For these issues I recommend he follows up with his primary care physician as scheduled. He was counseled on the importance of diet and exercise as well.
== END 2020-10-21 23:59 ==
LOC: WC 08:30
PROVIDERS: Family Provider Family Medicine; PCP Family Medicine; Visit Provider Podiatrist
DX: E11.621 Type 2 diabetes mellitus with foot ulcer (principal); L97.512 Non-pressure chronic ulcer of other part of right foot with fat layer exposed; R60.0 Localized edema; E11.42 Type 2 diabetes mellitus with diabetic polyneuropathy; E11.622 Type 2 diabetes mellitus with other skin ulcer; L97.812 Non-pressure chronic ulcer of other part of right lower leg with fat layer exposed; L97.822 Non-pressure chronic ulcer of other part of left lower leg with fat layer exposed; F17.210 Nicotine dependence, cigarettes, uncomplicated
CPT/HCPCS: 11042; 11045

== ENCOUNTER 2020-10-30 09:00 | Outpatient (RCR) | payer MEDICARE, SELFPAY ==
[2020-10-22 00:18] VITALS: BP 140/82; PULSE 107; RESP 18; TEMP 36.1
[2020-10-30 09:10] VITALS: BP 141/79; PULSE 98; RESP 18; TEMP 35.5; BMI 32.3
--- NOTE | 2020-10-30 12:03 | PN.PCM_ITS ---
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 Code(s): L97.913 - Non-pressure chronic ulcer of unspecified part of right lower leg with necrosis of muscle (2) Type 2 diabetes mellitus with diabetic polyneuropathy Status: Chronic Code(s): E11.42 - Type 2 diabetes mellitus with diabetic polyneuropathy (3) Delayed wound healing Status: Chronic Code(s): T14.8XXD - Other injury of unspecified body region, subsequent encounter (4) Tobacco dependence due to cigarettes Status: Chronic Code(s): F17.210 - Nicotine dependence, cigarettes, uncomplicated (5) Ulcer of left lower extremity with fat layer exposed Status: Chronic Code(s): L97.922 - Non-pressure chronic ulcer of unspecified part of left lower leg with fat layer exposed (6) Ulcer of right foot with necrosis of muscle Status: Resolved Code(s): L97.513 - Non-pressure chronic ulcer of other part of right foot with necrosis of muscle Type of Wound Date of Service: 10/30/20 Chief Complaint: right and left Leg ulcers and right foot ulcer History of Wound: Mr. Arguello is a 65-year-old male with multiple comorbidities follows up for delayed healing ulcers to the right foot as well as bilateral legs. He denies chills, fever, nausea, or vomiting. He denies odor or redness. He denies pain. He changes the dressings as advised with Adaptic and Aquacel Ag. He is with his today. He continues to smoke about 7 cigarettes daily. Progress of Wound: stable - Physical Exam Vital Signs Temp Pulse Resp BP 96 F L 98 18 141/79 H 10/30/20 09:10 10/30/20 09:10 10/30/20 09:10 10/30/20 09:10 General: Alert, Oriented x3, Cooperative Extremities: No cyanosis, Capillary Refill Less than 3 Seconds, No Calf Tenderness, Diminished Peripheral Pulses, Edema - Mild Skin: Ulcer/ Wound - No purulence, erythema, streaking, or infection. No bogginess or fluctuance Wound Measurements and Assessment WC - Nurse 1 - General Ulcer Measurement Start: 10/30/20 09:10 Freq: Status: Active Protocol: Activity Type Activity Date Activity User E-Sign Co-Sign Detail Recorded Client Recorded Date Recorded By Document 10/30/20 09:10 BM [id number] 10/30/20 09:24 [facility] 10/30/20 09:10 Wound Center Nurse 1 [Ulcer Assessment] #25- L ORELLANA CLUSTER -Combined with other wound No -Current Size (cm) - Length 3 -Current Size (cm) - Width 3.5 -Current Size (cm) - Depth 0.1 -Total Square Cm 10.5 -Photo Taken No -Epithelialization None Present -Tunneling No -Undermining/Tunneling No -Circular Undermining No -Exudate Amt Small -Exudate Type Serosanguineous -Wound Margin Distinct, Outline Attached -Granulation Amt Medium (34-66%) -Granulation Quality Red -Slough/Fibrin Yes -Necrosis Amt Small (1-33%) -Necrotic Tissue Type Adherent Slough -Texture (Lisa-wound Skin Appearance) Assessed, Scarring -Moisture (Lisa-wound Skin Appearance Assessed ) -Color (Lisa-wound Skin Appearance) Assessed -Temperature (Lisa-wound Skin No Abnormality Appearance) (Pt Warm) -Tenderness on Palpation (Lisa-wound No Skin Appearance) -Ulcer Cleansing SOAPY WATER -Foul Odor after Cleansing No -Anesthetic Used 4% Lidocaine Solution 23-right superior achilles -Combined with other wound No -Current Size (cm) - Length 0.9 -Current Size (cm) - Width 1 -Current Size (cm) - Depth 0.2 -Total Square Cm 0.9 -Photo Taken No -Epithelialization None Present -Tunneling No -Undermining/Tunneling No -Circular Undermining No -Exudate Amt Small -Exudate Type Serosanguineous -Wound Margin Distinct, Outline Attached -Granulation Amt Medium (34-66%) -Granulation Quality [place] -Necrosis Amt Medium (34-66%) -Necrotic Tissue Type Adherent Slough -Texture (Lisa-wound Skin Appearance) Assessed, Scarring -Moisture (Lisa-wound Skin Appearance Assessed,Dry/ ) Scaly -Color (Lisa-wound Skin Appearance) Assessed -Temperature (Lisa-wound Skin No Abnormality Appearance) (Pt Warm) -Tenderness on Palpation (Lisa-wound No Skin Appearance) -Ulcer Cleansing soapy water -Foul Odor after Cleansing No -Anesthetic Used 4% Lidocaine Solution #21 R Med Orellana -Combined with other wound No -Current Size (cm) - Length 0.1 -Current Size (cm) - Width 0.1 -Current Size (cm) - Depth 0.1 -Total Square Cm 0.01 -Photo Taken No -Epithelialization Large 67-100% -Tunneling No -Undermining/Tunneling No -Circular Undermining No -Texture (Lisa-wound Skin Appearance) Assessed -Moisture (Lisa-wound Skin Appearance Assessed ) -Color (Lisa-wound Skin Appearance) Assessed -Temperature (Lisa-wound Skin No Abnormality Appearance) (Pt Warm) -Tenderness on Palpation (Lisa-wound No Skin Appearance) -Ulcer Cleansing soapy water -Foul Odor after Cleansing No -Anesthetic Used 4% Lidocaine Solution #20 R med orellana sup -Combined with other wound No -Current Size (cm) - Length 1 -Current Size (cm) - Width 0.5 -Current Size (cm) - Depth 0.2 -Total Square Cm 0.5 -Photo Taken No -Epithelialization None Present -Tunneling No -Undermining/Tunneling No -Circular Undermining No -Exudate Amt Small -Exudate Type Serosanguineous -Wound Margin Distinct, Outline Attached -Granulation Amt Large (67-100%) -Granulation Quality Red -Slough/Fibrin Yes -Necrosis Amt Small (1-33%) -Necrotic Tissue Type Adherent Slough -Texture (Lisa-wound Skin Appearance) Assessed, Scarring -Moisture (Lisa-wound Skin Appearance Assessed ) -Color (Lisa-wound Skin Appearance) Assessed -Temperature (Lisa-wound Skin No Abnormality Appearance) (Pt Warm) -Tenderness on Palpation (Lisa-wound No Skin Appearance) -Ulcer Cleansing soapy water -Foul Odor after Cleansing No -Anesthetic Used 4% Lidocaine Solution #18 R Grt toe lat -Combined with other wound No -Current Size (cm) - Length 0.8 -Current Size (cm) - Width 0.5 -Current Size (cm) - Depth 0.2 -Total Square Cm 0.40 -Photo Taken No -Epithelialization None Present -Tunneling No -Undermining/Tunneling No -Circular Undermining No -Exudate Amt Small -Exudate Type Serosanguineous -Wound Margin Distinct, Outline Attached -Granulation Amt Small (1-33%) -Granulation Quality Red -Slough/Fibrin Yes -Necrosis Amt Large (67-100%) -Necrotic Tissue Type Adherent Slough -Texture (Lisa-wound Skin Appearance) Assessed,Callus ,Scarring -Moisture (Lisa-wound Skin Appearance Assessed,Dry/ ) Scaly -Color (Lisa-wound Skin Appearance) Assessed -Temperature (Lisa-wound Skin No Abnormality Appearance) (Pt Warm) -Tenderness on Palpation (Lisa-wound No Skin Appearance) -Ulcer Cleansing soapy water -Foul Odor after Cleansing No -Anesthetic Used 4% Lidocaine Solution #11 RIGHT MEDIAL FOOT -Combined with other wound No -Current Size (cm) - Length 4 -Current Size (cm) - Width 3 -Current Size (cm) - Depth 0.3 -Total Square Cm 12 -Photo Taken No -Epithelialization None Present -Tunneling No -Undermining/Tunneling No -Circular Undermining No -Exudate Amt Medium -Exudate Type Serosanguineous -Wound Margin Thickened -Granulation Amt Medium (34-66%) -Granulation Quality [place] -Slough/Fibrin Yes -Necrosis Amt Medium (34-66%) -Necrotic Tissue Type Adherent Slough -Texture (Lisa-wound Skin Appearance) Assessed, Scarring -Moisture (Lisa-wound Skin Appearance Assessed,Dry/ ) Scaly -Color (Lisa-wound Skin Appearance) Assessed -Temperature (Lisa-wound Skin No Abnormality Appearance) (Pt Warm) -Tenderness on Palpation (Lisa-wound No Skin Appearance) -Ulcer Cleansing soapy water -Foul Odor after Cleansing No -Anesthetic Used 4% Lidocaine Solution #6 POSTERIOR LLE -Combined with other wound No -Current Size (cm) - Length 5.7 -Current Size (cm) - Width 1 -Current Size (cm) - Depth 0.2 -Total Square Cm 5.7 -Photo Taken No -Epithelialization None Present -Tunneling No -Undermining/Tunneling No -Circular Undermining No -Exudate Amt Medium -Exudate Type Serosanguineous -Wound Margin Distinct, Outline Attached -Granulation Amt Medium (34-66%) -Granulation Quality [place] -Slough/Fibrin Yes -Necrosis Amt Medium (34-66%) -Necrotic Tissue Type Adherent Slough -Texture (Lisa-wound Skin Appearance) Assessed, Scarring -Moisture (Lisa-wound Skin Appearance Assessed,Dry/ ) Scaly -Color (Lisa-wound Skin Appearance) Assessed -Temperature (Lisa-wound Skin No Abnormality Appearance) (Pt Warm) -Tenderness on Palpation (Lisa-wound No Skin Appearance) -Ulcer Cleansing soapy water -Foul Odor after Cleansing No -Anesthetic Used 4% Lidocaine Solution #4 POSTERIOR RLE -Combined with other wound No -Current Size (cm) - Length 5.7 -Current Size (cm) - Width 1 -Current Size (cm) - Depth 0.2 -Total Square Cm 5.7 -Photo Taken No -Epithelialization None Present -Tunneling No -Undermining/Tunneling No -Circular Undermining No -Exudate Amt Large -Exudate Type Serosanguineous -Wound Margin Distinct, Outline Attached -Granulation Amt Small (1-33%) -Granulation Quality [place] -Slough/Fibrin Yes -Necrosis Amt Large (67-100%) -Necrotic Tissue Type Adherent Slough -Texture (Lisa-wound Skin Appearance) Assessed, Scarring -Moisture (Lisa-wound Skin Appearance Assessed,Dry/ ) Scaly -Color (Lisa-wound Skin Appearance) Assessed -Temperature (Lisa-wound Skin No Abnormality Appearance) (Pt Warm) -Tenderness on Palpation (Lisa-wound No Skin Appearance) -Ulcer Cleansing soapy wtaer -Foul Odor after Cleansing No -Anesthetic Used 4% Lidocaine Solution WC - Nurse 2 - General Ulcer CM Notes Start: 10/30/20 09:10 Freq: Status: Active Protocol: Activity Type Activity Date Activity User E-Sign Co-Sign Detail Recorded Client Recorded Date Recorded By Document 10/30/20 09:40 JAMAL [id number] 10/30/20 09:53 JAMAL 10/30/20 09:40 Wound Center Nurse 2 [Procedure/Treatment] #25- L ORELLANA CLUSTER -Time 09:41 -Correct Patient Yes -Correct Side, Site, Position Yes -Correct Procedure Yes -Procedure Performed Yes -Type of Procedure Debridement -Clinical Debridement Subcutaneous -Tissue Removed Subcutaneous -Post Debridement (cm) - Length 3.1 -Post Debridement (cm) - Width 3.1 -Post Debridement (cm) - Depth 0.1 -Total Square (Post) (cm) 9.61 -Area of Debridement (cm) - Length 3.1 -Area of Debridement (cm) - Width 3.1 -Total Square (Area) (cm) 9.61 -Tunneling No -Undermining/Tunneling No -Circular Undermining No -Wound/Ulcer Outcome Not Healed -Ulcer Cleansing Rinsed/ Irrigated with Saline -Foul Odor after Cleansing No -Bioengineered Tissue No -Bleeding Controlled with Pressure -Offloading No -Treatment Response Procedure Tolerated Well -Debridement - Subq, 1st 20sq cm No 23-right superior achilles -Time 09:42 -Correct Patient Yes -Correct Side, Site, Position Yes -Correct Procedure Yes -Procedure Performed Yes -Type of Procedure Debridement -Clinical Debridement Subcutaneous -Tissue Removed Subcutaneous -Post Debridement (cm) - Length 1 -Post Debridement (cm) - Width 1 -Post Debridement (cm) - Depth 0.2 -Total Square (Post) (cm) 1 -Area of Debridement (cm) - Length 1 -Area of Debridement (cm) - Width 1 -Total Square (Area) (cm) 1 -Tunneling No -Undermining/Tunneling No -Circular Undermining No -Wound/Ulcer Outcome Not Healed -Ulcer Cleansing Rinsed/ Irrigated with Saline -Foul Odor after Cleansing No -Bioengineered Tissue No -Bleeding Controlled with Pressure -Offloading No -Treatment Response Procedure Tolerated Well -Debridement - Subq, 1st 20sq cm No #21 R Submitnet Orellana -Time 09:42 -Correct Patient No -Correct Side, Site, Position No -Correct Procedure No -Procedure Performed No -Type of Procedure Debridement -Clinical Debridement Subcutaneous -Tissue Removed Subcutaneous -Post Debridement (cm) - Length 0.2 -Post Debridement (cm) - Width 0.2 -Post Debridement (cm) - Depth 0.1 -Total Square (Post) (cm) 0.04 -Area of Debridement (cm) - Length 0.2 -Area of Debridement (cm) - Width 0.2 -Total Square (Area) (cm) 0.04 -Tunneling No -Undermining/Tunneling No -Circular Undermining No -Wound/Ulcer Outcome Not Healed -Ulcer Cleansing Rinsed/ Irrigated with Saline -Foul Odor after Cleansing No -Bioengineered Tissue No -Bleeding Controlled with Pressure -Offloading No -Treatment Response Procedure Tolerated Well -Debridement - Subq, 1st 20sq cm No #20 R BetterCloud sup -Time 09:43 -Correct Patient Yes -Correct Side, Site, Position Yes -Correct Procedure Yes -Procedure Performed Yes -Type of Procedure Debridement -Clinical Debridement Subcutaneous -Tissue Removed Subcutaneous -Post Debridement (cm) - Length 1.1 -Post Debridement (cm) - Width 0.6 -Post Debridement (cm) - Depth 0.2 -Total Square (Post) (cm) 0.66 -Area of Debridement (cm) - Length 1.1 -Area of Debridement (cm) - Width 0.6 -Total Square (Area) (cm) 0.66 -Tunneling No -Undermining/Tunneling No -Circular Undermining No -Wound/Ulcer Outcome Not Healed -Ulcer Cleansing Rinsed/ Irrigated with Saline -Foul Odor after Cleansing No -Bioengineered Tissue No -Bleeding Controlled with Pressure -Offloading No -Treatment Response Procedure Tolerated Well -Debridement - Subq, 1st 20sq cm No #18 R Grt toe lat -Time 09:43 -Correct Patient Yes -Correct Side, Site, Position Yes -Correct Procedure Yes -Procedure Performed Yes -Type of Procedure Debridement -Clinical Debridement Subcutaneous -Tissue Removed Subcutaneous -Post Debridement (cm) - Length 1 -Post Debridement (cm) - Width 0.5 -Post Debridement (cm) - Depth 0.2 -Total Square (Post) (cm) 0.5 -Area of Debridement (cm) - Length 1 -Area of Debridement (cm) - Width 0.5 -Total Square (Area) (cm) 0.5 -Tunneling No -Undermining/Tunneling No -Circular Undermining No -Wound/Ulcer Outcome Not Healed -Ulcer Cleansing Rinsed/ Irrigated with Saline -Foul Odor after Cleansing No -Bioengineered Tissue No -Bleeding Controlled with Pressure -Offloading No -Treatment Response Procedure Tolerated Well -Debridement - Subq, 20sq cm No #11 RIGHT MEDIAL FOOT -Time 09:44 -Correct Patient Yes -Correct Side, Site, Position Yes -Correct Procedure Yes -Procedure Performed Yes -Type of Procedure Debridement -Clinical Debridement Subcutaneous -Tissue Removed Subcutaneous -Post Debridement (cm) - Length 4.1 -Post Debridement (cm) - Width 3 -Post Debridement (cm) - Depth 0.3 -Total Square (Post) (cm) 12.3 -Area of Debridement (cm) - Length 4.1 -Area of Debridement (cm) - Width 3 -Total Square (Area) (cm) 12.3 -Tunneling No -Undermining/Tunneling No -Circular Undermining No -Wound/Ulcer Outcome Not Healed -Ulcer Cleansing Rinsed/ Irrigated with Saline -Foul Odor after Cleansing No -Bioengineered Tissue No -Bleeding Controlled with Pressure -Offloading No -Treatment Response Procedure Tolerated Well -Debridement - Subq, 1st 20sq cm No #6 POSTERIOR LLE -Time 09:45 -Correct Patient Yes -Correct Side, Site, Position Yes -Correct Procedure Yes -Procedure Performed Yes -Type of Procedure Debridement -Clinical Debridement Subcutaneous -Tissue Removed Subcutaneous -Post Debridement (cm) - Length 5.8 -Post Debridement (cm) - Width 1 -Post Debridement (cm) - Depth 0.2 -Total Square (Post) (cm) 5.8 -Area of Debridement (cm) - Length 5.8 -Area of Debridement (cm) - Width 1 -Total Square (Area) (cm) 5.8 -Tunneling No -Undermining/Tunneling No -Circular Undermining No -Wound/Ulcer Outcome Not Healed -Ulcer Cleansing Rinsed/ Irrigated with Saline -Foul Odor after Cleansing No -Bioengineered Tissue No -Bleeding Controlled with Pressure -Offloading No -Treatment Response Procedure Tolerated Well -Debridement - Subq, 1st 20sq cm No #4 POSTERIOR RLE -Time 09:46 -Correct Patient Yes -Correct Side, Site, Position Yes -Correct Procedure Yes -Procedure Performed Yes -Type of Procedure Debridement -Clinical Debridement Subcutaneous -Tissue Removed Subcutaneous -Post Debridement (cm) - Length 5.1 -Post Debridement (cm) - Width 4 -Post Debridement (cm) - Depth 0.3 -Total Square (Post) (cm) 20.4 -Area of Debridement (cm) - Length 5.1 -Area of Debridement (cm) - Width 3.8 -Total Square (Area) (cm) 19.38 -Tunneling No -Undermining/Tunneling No -Circular Undermining No -Wound/Ulcer Outcome Not Healed -Ulcer Cleansing Rinsed/ Irrigated with Saline -Foul Odor after Cleansing No -Bioengineered Tissue No -Bleeding Controlled with Pressure -Offloading No -Treatment Response Procedure Tolerated Well -Debridement - Subq, 1st 20sq cm Yes [See Physician Procedure note for Specifics] Pain Scale: 0-10 Numeric [Pain] -Is Patient Pain Free? Yes WC - Nurse 3 - General Ulcer D/C NN Start: 10/30/20 09:10 Freq: Status: Active Protocol: Activity Type Activity Date Activity User E-Sign Co-Sign Detail Recorded Client Recorded Date Recorded By Document 10/30/20 10:08 BM [id number] 10/30/20 10:11 BMF 10/30/20 10:08 Wound Care Nurse 3 [Wound Dressing] #25- L ORELLANA CLUSTER -Ulcer Cleansing Rinsed/ Irrigated with Saline -Foul Odor after Cleansing No -Primary Dressing Applied Aquacel Extra, NonAdherent Contact Layer -Primary Dressing Covered/Secured Dry Gauze & with Roll Gauze, Secured with Tape -Aquacel Extra 1 23-right superior achilles -Ulcer Cleansing Rinsed/ Irrigated with Saline -Foul Odor after Cleansing No -Primary Dressing Applied Aquacel AG 4x4 -Primary Dressing Covered/Secured Dry Gauze & with Roll Gauze, Secured with Tape -Aquacel AG 4x4 0 #21 R Med [place]ana -Ulcer Cleansing Rinsed/ Irrigated with Saline -Foul Odor after Cleansing No -Primary Dressing Applied Aquacel AG 4x4, NonAdherent Contact Layer -Primary Dressing Covered/Secured Dry Gauze & with Roll Gauze, Secured with Tape -Aquacel AG 4x4 0 #20 R med orellana sup -Ulcer Cleansing Rinsed/ Irrigated with Saline -Foul Odor after Cleansing No -Primary Dressing Applied Aquacel AG 4x4, NonAdherent Contact Layer -Primary Dressing Covered/Secured Dry Gauze & with Roll Gauze, Secured with Tape -Aquacel AG 4x4 0 #18 R Grt toe lat -Ulcer Cleansing Rinsed/ Irrigated with Saline -Foul Odor after Cleansing No -Primary Dressing Applied Aquacel AG 4x4, NonAdherent Contact Layer -Primary Dressing Covered/Secured Dry Gauze & with Roll Gauze, Secured with Tape -Aquacel AG 4x4 0 #11 RIGHT MEDIAL FOOT -Ulcer Cleansing Rinsed/ Irrigated with Saline -Foul Odor after Cleansing No -Primary Dressing Applied Aquacel Extra -Primary Dressing Covered/Secured Dry Gauze & with Roll Gauze, Secured with Tape -Aquacel Extra 0 #6 POSTERIOR LLE -Ulcer Cleansing Rinsed/ Irrigated with Saline -Foul Odor after Cleansing No -Primary Dressing Applied Aquacel Extra, NonAdherent Contact Layer -Primary Dressing Covered/Secured Dry Gauze & with Roll Gauze, Secured with Tape -Aquacel Extra 0 #4 POSTERIOR RLE -Ulcer Cleansing Rinsed/ Irrigated with Saline -Foul Odor after Cleansing No -Primary Dressing Applied Aquacel Extra, NonAdherent Contact Layer -Primary Dressing Covered/Secured Dry Gauze & with Roll Gauze, Secured with Tape -Aquacel Extra 0 [Compression Applied] Right -Compression Wrap Joao Wrap -Other pt only wants joao to cover/ secure drsg. Left -Compression Wrap Joao Wrap [Post Procedure Tolerated] -Treatment Response Procedure Not Tolerated Well Pain Scale: 0-10 Numeric [Pain] -Is Patient Pain Free? Yes WC - Visit Discharge [Visit Discharge Information] -Discharge Condition Stable -Ambulatory Status Wheelchair -Transportation Private Auto -Accompanied by Musculoskeletal: No Tenderness to Palpation of Joints or Extremities, Muscle Wasting Neurological: - - Lack of normal epicritic sensation Psych/Mental Status: Normal Affect, Appropriate Debridement Note Post-Debridement Measurements/Treatment WC - Nurse 2 - General Ulcer CM Notes Start: 10/30/20 09:10 Freq: Status: Active Protocol: Activity Type Activity Date Activity User E-Sign Co-Sign Detail Recorded Client Recorded Date Recorded By Document 10/30/20 09:40 JAMAL [id number] 10/30/20 09:53 10/30/20 09:40 Wound Center Nurse 2 #25- L ORELLANA CLUSTER -Time 09:41 -Correct Patient Yes -Correct Side, Site, Position Yes -Correct Procedure Yes -Procedure Performed Yes -Type of Procedure Debridement -Clinical Debridement Subcutaneous -Tissue Removed Subcutaneous -Post Debridement (cm) - Length 3.1 -Post Debridement (cm) - Width 3.1 -Post Debridement (cm) - Depth 0.1 -Total Square (Post) (cm) 9.61 -Area of Debridement (cm) - Length 3.1 -Area of Debridement (cm) - Width 3.1 -Total Square (Area) (cm) 9.61 -Tunneling No -Undermining/Tunneling No -Circular Undermining No -Wound/Ulcer Outcome Not Healed -Ulcer Cleansing Rinsed/ Irrigated with Saline -Foul Odor after Cleansing No -Bioengineered Tissue No -Bleeding Controlled with Pressure -Offloading No -Treatment Response Procedure Tolerated Well -Debridement - Subq, 1st 20sq cm No 23-right superior achilles -Time 09:42 -Correct Patient Yes -Correct Side, Site, Position Yes -Correct Procedure Yes -Procedure Performed Yes -Type of Procedure Debridement -Clinical Debridement Subcutaneous -Tissue Removed Subcutaneous -Post Debridement (cm) - Length 1 -Post Debridement (cm) - Width 1 -Post Debridement (cm) - Depth 0.2 -Total Square (Post) (cm) 1 -Area of Debridement (cm) - Length 1 -Area of Debridement (cm) - Width 1 -Total Square (Area) (cm) 1 -Tunneling No -Undermining/Tunneling No -Circular Undermining No -Wound/Ulcer Outcome Not Healed -Ulcer Cleansing Rinsed/ Irrigated with Saline -Foul Odor after Cleansing No -Bioengineered Tissue No -Bleeding Controlled with Pressure -Offloading No -Treatment Response Procedure Tolerated Well -Debridement - Subq, 1st 20sq cm No #21 R Submitnet Orellana -Time 09:42 -Correct Patient No -Correct Side, Site, Position No -Correct Procedure No -Procedure Performed No -Type of Procedure Debridement -Clinical Debridement Subcutaneous -Tissue Removed Subcutaneous -Post Debridement (cm) - Length 0.2 -Post Debridement (cm) - Width 0.2 -Post Debridement (cm) - Depth 0.1 -Total Square (Post) (cm) 0.04 -Area of Debridement (cm) - Length 0.2 -Area of Debridement (cm) - Width 0.2 -Total Square (Area) (cm) 0.04 -Tunneling No -Undermining/Tunneling No -Circular Undermining No -Wound/Ulcer Outcome Not Healed -Ulcer Cleansing Rinsed/ Irrigated with Saline -Foul Odor after Cleansing No -Bioengineered Tissue No -Bleeding Controlled with Pressure -Offloading No -Treatment Response Procedure Tolerated Well -Debridement - Subq, 20sq cm No #20 R Better[employer] sup -Time 09:43 -Correct Patient Yes -Correct Side, Site, Position Yes -Correct Procedure Yes -Procedure Performed Yes -Type of Procedure Debridement -Clinical Debridement Subcutaneous -Tissue Removed Subcutaneous -Post Debridement (cm) - Length 1.1 -Post Debridement (cm) - Width 0.6 -Post Debridement (cm) - Depth 0.2 -Total Square (Post) (cm) 0.66 -Area of Debridement (cm) - Length 1.1 -Area of Debridement (cm) - Width 0.6 -Total Square (Area) (cm) 0.66 -Tunneling No -Undermining/Tunneling No -Circular Undermining No -Wound/Ulcer Outcome Not Healed -Ulcer Cleansing Rinsed/ Irrigated with Saline -Foul Odor after Cleansing No -Bioengineered Tissue No -Bleeding Controlled with Pressure -Offloading No -Treatment Response Procedure Tolerated Well -Debridement - Subq, 1st 20sq cm No #18 R Grt toe lat -Time 09:43 -Correct Patient Yes -Correct Side, Site, Position Yes -Correct Procedure Yes -Procedure Performed Yes -Type of Procedure Debridement -Clinical Debridement Subcutaneous -Tissue Removed Subcutaneous -Post Debridement (cm) - Length 1 -Post Debridement (cm) - Width 0.5 -Post Debridement (cm) - Depth 0.2 -Total Square (Post) (cm) 0.5 -Area of Debridement (cm) - Length 1 -Area of Debridement (cm) - Width 0.5 -Total Square (Area) (cm) 0.5 -Tunneling No -Undermining/Tunneling No -Circular Undermining No -Wound/Ulcer Outcome Not Healed -Ulcer Cleansing Rinsed/ Irrigated with Saline -Foul Odor after Cleansing No -Bioengineered Tissue No -Bleeding Controlled with Pressure -Offloading No -Treatment Response Procedure Tolerated Well -Debridement - Subq, 20sq cm No #11 RIGHT MEDIAL FOOT -Time 09:44 -Correct Patient Yes -Correct Side, Site, Position Yes -Correct Procedure Yes -Procedure Performed Yes -Type of Procedure Debridement -Clinical Debridement Subcutaneous -Tissue Removed Subcutaneous -Post Debridement (cm) - Length 4.1 -Post Debridement (cm) - Width 3 -Post Debridement (cm) - Depth 0.3 -Total Square (Post) (cm) 12.3 -Area of Debridement (cm) - Length 4.1 -Area of Debridement (cm) - Width 3 -Total Square (Area) (cm) 12.3 -Tunneling No -Undermining/Tunneling No -Circular Undermining No -Wound/Ulcer Outcome Not Healed -Ulcer Cleansing Rinsed/ Irrigated with Saline -Foul Odor after Cleansing No -Bioengineered Tissue No -Bleeding Controlled with Pressure -Offloading No -Treatment Response Procedure Tolerated Well -Debridement - Subq, 1st 20sq cm No #6 POSTERIOR LLE -Time 09:45 -Correct Patient Yes -Correct Side, Site, Position Yes -Correct Procedure Yes -Procedure Performed Yes -Type of Procedure Debridement -Clinical Debridement Subcutaneous -Tissue Removed Subcutaneous -Post Debridement (cm) - Length 5.8 -Post Debridement (cm) - Width 1 -Post Debridement (cm) - Depth 0.2 -Total Square (Post) (cm) 5.8 -Area of Debridement (cm) - Length 5.8 -Area of Debridement (cm) - Width 1 -Total Square (Area) (cm) 5.8 -Tunneling No -Undermining/Tunneling No -Circular Undermining No -Wound/Ulcer Outcome Not Healed -Ulcer Cleansing Rinsed/ Irrigated with Saline -Foul Odor after Cleansing No -Bioengineered Tissue No -Bleeding Controlled with Pressure -Offloading No -Treatment Response Procedure Tolerated Well -Debridement - Subq, 1st 20sq cm No #4 POSTERIOR RLE -Time 09:46 -Correct Patient Yes -Correct Side, Site, Position Yes -Correct Procedure Yes -Procedure Performed Yes -Type of Procedure Debridement -Clinical Debridement Subcutaneous -Tissue Removed Subcutaneous -Post Debridement (cm) - Length 5.1 -Post Debridement (cm) - Width 4 -Post Debridement (cm) - Depth 0.3 -Total Square (Post) (cm) 20.4 -Area of Debridement (cm) - Length 5.1 -Area of Debridement (cm) - Width 3.8 -Total Square (Area) (cm) 19.38 -Tunneling No -Undermining/Tunneling No -Circular Undermining No -Wound/Ulcer Outcome Not Healed -Ulcer Cleansing Rinsed/ Irrigated with Saline -Foul Odor after Cleansing No -Bioengineered Tissue No -Bleeding Controlled with Pressure -Offloading No -Treatment Response Procedure Tolerated Well -Debridement - Subq, 1st 20sq cm Yes Pain Scale: 0-10 Numeric Is Patient Pain Free? Yes WC - Nurse 3 - General Ulcer D/C NN Start: 10/30/20 09:10 Freq: Status: Active Protocol: Activity Type Activity Date Activity User E-Sign Co-Sign Detail Recorded Client Recorded Date Recorded By Document 10/30/20 10:08 [facility] [id number] 10/30/20 10:11 [facility] 10/30/20 10:08 Wound Care Nurse 3 #25- L ORELLANA CLUSTER -Ulcer Cleansing Rinsed/ Irrigated with Saline -Foul Odor after Cleansing No -Primary Dressing Applied Aquacel Extra, NonAdherent Contact Layer -Primary Dressing Covered/Secured with Dry Gauze & Roll Gauze, Secured with Tape -Aquacel Extra 1 23-right superior achilles -Ulcer Cleansing Rinsed/ Irrigated with Saline -Foul Odor after Cleansing No -Primary Dressing Applied Aquacel AG 4x4 -Primary Dressing Covered/Secured with Dry Gauze & Roll Gauze, Secured with Tape -Aquacel AG 4x4 0 #21 R Med Orellana -Ulcer Cleansing Rinsed/ Irrigated with Saline -Foul Odor after Cleansing No -Primary Dressing Applied Aquacel AG 4x4, NonAdherent Contact Layer -Primary Dressing Covered/Secured with Dry Gauze & Roll Gauze, Secured with Tape -Aquacel AG 4x4 0 #20 R med orellana sup -Ulcer Cleansing Rinsed/ Irrigated with Saline -Foul Odor after Cleansing No -Primary Dressing Applied Aquacel AG 4x4, NonAdherent Contact Layer -Primary Dressing Covered/Secured with Dry Gauze & Roll Gauze, Secured with Tape -Aquacel AG 4x4 0 #18 R Grt toe lat -Ulcer Cleansing Rinsed/ Irrigated with Saline -Foul Odor after Cleansing No -Primary Dressing Applied Aquacel AG 4x4, NonAdherent Contact Layer -Primary Dressing Covered/Secured with Dry Gauze & Roll Gauze, Secured with Tape -Aquacel AG 4x4 0 #11 RIGHT MEDIAL FOOT -Ulcer Cleansing Rinsed/ Irrigated with Saline -Foul Odor after Cleansing No -Primary Dressing Applied Aquacel Extra -Primary Dressing Covered/Secured with Dry Gauze & Roll Gauze, Secured with Tape -Aquacel Extra 0 #6 POSTERIOR LLE -Ulcer Cleansing Rinsed/ Irrigated with Saline -Foul Odor after Cleansing No -Primary Dressing Applied Aquacel Extra, NonAdherent Contact Layer -Primary Dressing Covered/Secured with Dry Gauze & Roll Gauze, Secured with Tape -Aquacel Extra 0 #4 POSTERIOR RLE -Ulcer Cleansing Rinsed/ Irrigated with Saline -Foul Odor after Cleansing No -Primary Dressing Applied Aquacel Extra, NonAdherent Contact Layer -Primary Dressing Covered/Secured with Dry Gauze & Roll Gauze, Secured with Tape -Aquacel Extra 0 Right -Compression Wrap Joao Wrap -Other pt only wants joao to cover/ secure drsg. Left -Compression Wrap Joao Wrap Treatment Response Procedure Not Tolerated Well Pain Scale: 0-10 Numeric Is Patient Pain Free? Yes WC - Visit Discharge Discharge Condition Stable Ambulatory Status Wheelchair Transportation Private Auto Accompanied by Wound debrided: hallux, plantar medial forefoot, anterior leg Laterality: Right Wound Grade/Stage: grade 1 Type of Debridement: Excisional debridement Anesthesia Used: 5% Lidocaine Gel Depth: in the subcutaneous layer Percentage of wound debrided: 100 Instrument Used: #15 blade Tissue Removed: fibrous, devitalized subcutaneous, biofilm, slough Severity: Fat Layer Exposed Amount of bleeding with debridement: Mild Bleeding Controlled with: Pressure Patient tolerated procedure well - Additional Wound Wound debrided: posterior leg, medial plantar foot Laterality: Right Wound Grade/Stage: grade 3 Type of Debridement: Excisional debridement Anesthesia Used: 5% Lidocaine Gel Depth: in the subcutaneous layer Percentage of wound debrided: 100 Instrument Used: #15 blade Tissue Removed: fibrous, devitalized subcutaneous, biofilm, slough Severity: Fat Layer Exposed Amount of bleeding with debridement: Mild Bleeding Controlled with: Pressure Patient tolerated procedure: Patient tolerated procedure well - Additional Wound Wound debrided: posterior leg Laterality: Left Wound Grade/Stage: grade 2 Type of Debridement: Excisional debridement Anesthesia Used: 5% Lidocaine Gel Depth: in the subcutaneous layer Percentage of wound debrided: 100 Instrument Used: #15 blade Tissue Removed: fibrous, devitalized subcutaneous, biofilm, slough Severity: Fat Layer Exposed Amount of bleeding with debridement: Mild Bleeding Controlled with: Pressure Patient tolerated procedure: Patient tolerated procedure well Assessment/Plan Active Problems (Last Updated 09/28/18 @ 12:41 by Geraldine Steele) 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 -Right plantar medial first metatarsal head ulcer at prior skin tear site, grade 1. -Right posterior leg ulcer grade 1, no infection. -right anterior leg ulcers (medial, superior, anterior, inferior) grade 1, no infection. -right anterior proximal leg ulcer grade 1, no infection. -left leg ulcer proximal to tibial tuberosity, no infection. -Prior status post operating room excisional subcutaneous and tendon debridements to bilateral legs and right foot with additional application of advanced wound healing products to bilateral posterior lower legs--no infection and stable today -improvement noted. 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 - previous bilateral leg fasciotomies and debridements and irrigation performed previously now with right and left leg ulcers with fat and tendon layers exposed. -diabetic neuropathy. -malnutrition suspected. 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 -delayed healing. -gait impairment and fall risk. -other comorbidities. -Continued smoking habits Plan: I reviewed and discussed his case today. Debridement was performed to all sites as noted in the nursing panel in a subcutaneous excisional manner. Compliance was reviewed while he is outside he needs to wear a cam walker to avoid these types of injuries. To change daily with Aquacel Ag and Adaptic. He was reassured no local or systemic signs of illness is suspected today. To continue increased protein intake with nutritional supplementation. To continue glycemic control. He had a previous arterial Doppler scheduled with Dr. Morgan's staff on August 02, 2018 and overall perfusion was confirmed; additional intervention or workup was not recommended. It is also noted that he did have venous Doppler performed with reflux evaluation. He did not have evidence of deep venous thrombosis or venous insufficiency at that time; the vessels were compressible. I recommend he sustained from smoking and alcohol activities to optimize healing as well. Smoking cessation was encouraged. He elects to proceed with a more palliative care plan and will return to clinic in 2 weeks. Prior workup summary: His workup for vasculitis and underlying autoimmune disorder has been completed. A punch biopsy was sent during his last surgical intervention on June 10 and this demonstrated inflammatory changes without malignancy. He had initial screening labs and so far he has a negative RA titer, HL of the 27, KEVIN, anti-CCP, and rheumatoid factor. Several his antibody screenings were not reportable. Hyperbaric oxygen therapy was recommended and it is noted his ejection fraction was most recently 50%. He refuses at this time. . I answered his questions. To return to the wound healing center in 2 week. Due to coronavirus pandemic, reduced in person visits are offered. To call sooner if he has any questions or concerns. He will return in two weeks for debridement. . Quality measures reviewed as the following: Updated today: Medication and allergy reconciliation, pain status and follow-up plan. updated 01-10-2020- he denies falls this past year. Reviewed on 11-29-2019: up-to-date pneumonia vaccination status, he has not up-to-date influenza immunization performed in 09/2019, he does have a living will on file. He is a smoker and smoking cessation was reviewed. He does have elevated blood pressure at or above 120/80 mmHg and also elevated body mass index. For these issues I recommend he follows up with his primary care physician as scheduled. He was counseled on the importance of diet and exercise as well. Quality measures reviewed as the following: Updated today: Medication and allergy reconciliation, pain status and follow-up plan. Reviewed on 11-29-2019: up-to-date pneumonia vaccination status, he has not up-to-date influenza immunization performed in 09/2019, he does have a living will on file. He is a smoker and smoking cessation was reviewed. He does have elevated blood pressure at or above 120/80 mmHg and also elevated body mass index. For these issues I recommend he follows up with his primary care physician as scheduled. He was counseled on the importance of diet and exercise as well.
== END 2020-11-21 23:59 ==
LOC: WC 09:00
PROVIDERS: Family Provider Family Medicine; PCP Family Medicine; Visit Provider Podiatrist
DX: E11.621 Type 2 diabetes mellitus with foot ulcer (principal); L97.913 Non-pressure chronic ulcer of unspecified part of right lower leg with necrosis of muscle; L97.412 Non-pressure chronic ulcer of right heel and midfoot with fat layer exposed; E11.42 Type 2 diabetes mellitus with diabetic polyneuropathy; F17.210 Nicotine dependence, cigarettes, uncomplicated; L97.922 Non-pressure chronic ulcer of unspecified part of left lower leg with fat layer exposed; L97.513 Non-pressure chronic ulcer of other part of right foot with necrosis of muscle; M72.6 Necrotizing fasciitis; R60.0 Localized edema
CPT/HCPCS: 11042; 11045

== ENCOUNTER 2020-12-18 09:00 | Outpatient (RCR) | payer MEDICARE, SELFPAY ==
[2020-11-22 00:17] VITALS: BP 141/79; PULSE 98; RESP 18; TEMP 35.5
[2020-11-27 09:05] VITALS: BP 110/84; PULSE 91; RESP 18; TEMP 36; BMI 32.3
--- NOTE | 2020-11-27 10:50 | PCM.WC.PN ---
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 Status: Chronic Code(s): L97.913 - Non-pressure chronic ulcer of unspecified part of right lower leg with necrosis of muscle (4) Ulcer of right lower extremity with fat layer exposed Status: Chronic Code(s): L97.912 - Non-pressure chronic ulcer of unspecified part of right lower leg with fat layer exposed (5) Type 2 diabetes mellitus with diabetic polyneuropathy Status: Chronic Code(s): E11.42 - Type 2 diabetes mellitus with diabetic polyneuropathy (6) Delayed wound healing Status: Chronic Code(s): T14.8XXD - Other injury of unspecified body region, subsequent encounter (7) Ulcer of left lower extremity with fat layer exposed Status: Chronic Code(s): L97.922 - Non-pressure chronic ulcer of unspecified part of left lower leg with fat layer exposed (8) Malnutrition Status: Chronic Code(s): E46 - Unspecified protein-calorie malnutrition Type of Wound Date of Service: 11/27/20 Chief Complaint: right and left Leg ulcers and right foot ulcer History of Wound: Mr. Arguello is a 65-year-old male with multiple comorbidities follows up for delayed healing ulcers to the right foot as well as bilateral legs. He denies chills, fever, nausea, or vomiting. He denies odor or redness. He denies pain. He changes the dressings as advised with Adaptic and Aquacel Ag. He is with his today. He continues to smoke about 7 or more cigarettes daily and does not plan to reduce use. Progress of Wound: stable - Physical Exam Vital Signs Temp Pulse Resp BP 96.8 F L 91 18 110/84 H 11/27/20 09:05 11/27/20 09:05 11/27/20 09:05 11/27/20 09:05 General: Alert, Oriented x3, Cooperative, No apparent distress HEENT: Atraumatic Extremities: No cyanosis, Capillary Refill Less than 3 Seconds, No Calf Tenderness, Diminished Peripheral Pulses, Edema Skin: Ulcer/ Wound - No purulence, erythema, string, odor, infection. The posterior right leg ulcers have fibrous and granulation tissue and the other ulcer sites have granular tissue. The adjacent skin is hairless and atrophic. Wound Measurements and Assessment WC - Nurse 1 - General Ulcer Measurement Start: 11/27/20 09:05 Freq: Status: Active Protocol: Activity Type Activity Date Activity User E-Sign Co-Sign Detail Recorded Client Recorded Date Recorded By Document 11/27/20 09:05 KARLEE [id number] 11/27/20 09:27 RB 11/27/20 09:05 Wound Center Nurse 1 [Ulcer Assessment] # 25 left orellana cluster -Combined with other wound No -Current Size (cm) - Length 1.5 -Current Size (cm) - Width 2.3 -Current Size (cm) - Depth 0.2 -Total Square Cm 3.45 -Tunneling No -Undermining/Tunneling No -Circular Undermining No -Exudate Amt Medium -Exudate Type Serosanguineous -Wound Margin Thickened & Rolled Under -Granulation Amt Medium (34-66%) -Granulation Quality [place] -Slough/Fibrin Yes -Necrosis Amt Small (1-33%) -Necrotic Tissue Type Adherent Slough -Structure Exposed N/A -Texture (Lisa-wound Skin Appearance) Assessed -Moisture (Lisa-wound Skin Appearance Assessed,Dry/ ) Scaly -Color (Lisa-wound Skin Appearance) Assessed -Temperature (Lisa-wound Skin No Abnormality Appearance) (Pt Warm) -Tenderness on Palpation (Lisa-wound No Skin Appearance) -Ulcer Cleansing Wound Cleanser -Foul Odor after Cleansing No -Anesthetic Used 4% Lidocaine Solution 23-right superior achilles -Combined with other wound No -Current Size (cm) - Length 5.2 -Current Size (cm) - Width 3 -Current Size (cm) - Depth 0.2 -Total Square Cm 15.6 -Tunneling No -Undermining/Tunneling No -Circular Undermining No -Exudate Amt Medium -Exudate Type Yellow/Green -Wound Margin Thickened & Rolled Under -Granulation Amt Medium (34-66%) -Granulation Quality [place] -Slough/Fibrin Yes -Necrosis Amt Small (1-33%) -Necrotic Tissue Type Adherent Slough -Structure Exposed N/A -Texture (Lisa-wound Skin Appearance) Assessed -Moisture (Lisa-wound Skin Appearance Assessed,Dry/ ) Scaly -Color (Lisa-wound Skin Appearance) Assessed -Temperature (Lisa-wound Skin No Abnormality Appearance) (Pt Warm) -Tenderness on Palpation (Lisa-wound No Skin Appearance) -Ulcer Cleansing Wound Cleanser -Foul Odor after Cleansing No -Anesthetic Used 4% Lidocaine Solution #21 R Med [place] -Combined with other wound No -Current Size (cm) - Length 0.1 -Current Size (cm) - Width 0.1 -Current Size (cm) - Depth 0.1 -Total Square Cm 0.01 -Tunneling No -Undermining/Tunneling No -Circular Undermining No -Exudate Amt Medium -Exudate Type Serosanguineous -Wound Margin Thickened & Rolled Under -Granulation Amt Medium (34-66%) -Granulation Quality [place] -Slough/Fibrin Yes -Necrosis Amt Medium (34-66%) -Necrotic Tissue Type Adherent Slough -Structure Exposed N/A -Texture (Lisa-wound Skin Appearance) Assessed -Moisture (Lisa-wound Skin Appearance Assessed ) -Color (Lisa-wound Skin Appearance) Assessed -Temperature (Lisa-wound Skin No Abnormality Appearance) (Pt Warm) -Tenderness on Palpation (Lisa-wound No Skin Appearance) -Ulcer Cleansing Wound Cleanser -Foul Odor after Cleansing No -Anesthetic Used 4% Lidocaine Solution #20 R med orellana sup -Combined with other wound No -Current Size (cm) - Length 0.1 -Current Size (cm) - Width 0.1 -Current Size (cm) - Depth 0.1 -Total Square Cm 0.01 -Tunneling No -Undermining/Tunneling No -Circular Undermining No -Exudate Amt Medium -Exudate Type Serosanguineous -Wound Margin Thickened & Rolled Under -Granulation Amt Medium (34-66%) -Granulation Quality [place] -Slough/Fibrin Yes -Necrosis Amt Small (1-33%) -Necrotic Tissue Type Adherent Slough -Structure Exposed N/A -Texture (Lisa-wound Skin Appearance) Assessed -Moisture (Lisa-wound Skin Appearance Assessed,Dry/ ) Scaly -Color (Lisa-wound Skin Appearance) Assessed -Temperature (Lisa-wound Skin No Abnormality Appearance) (Pt Warm) -Tenderness on Palpation (Lisa-wound No Skin Appearance) -Ulcer Cleansing Wound Cleanser -Foul Odor after Cleansing No -Anesthetic Used 4% Lidocaine Solution #26 right great toe -Combined with other wound No -Current Size (cm) - Length 0.1 -Current Size (cm) - Width 0.1 -Current Size (cm) - Depth 0.1 -Total Square Cm 0.01 -Tunneling No -Undermining/Tunneling No -Circular Undermining No -Exudate Amt Medium -Exudate Type Serosanguineous -Wound Margin Thickened & Rolled Under -Granulation Amt Medium (34-66%) -Granulation Quality [place] -Slough/Fibrin Yes -Necrosis Amt Small (1-33%) -Necrotic Tissue Type Adherent Slough -Structure Exposed N/A -Texture (Lisa-wound Skin Appearance) Assessed -Moisture (Lisa-wound Skin Appearance Dry/Scaly ) -Color (Lisa-wound Skin Appearance) Assessed -Temperature (Lisa-wound Skin No Abnormality Appearance) (Pt Warm) -Tenderness on Palpation (Lisa-wound No Skin Appearance) -Ulcer Cleansing Wound Cleanser -Foul Odor after Cleansing No -Anesthetic Used 4% Lidocaine Solution #11 RIGHT MEDIAL FOOT -Combined with other wound No -Current Size (cm) - Length 4 -Current Size (cm) - Width 3.6 -Current Size (cm) - Depth 0.3 -Total Square Cm 14.4 -Tunneling No -Undermining/Tunneling No -Circular Undermining No -Exudate Amt Medium -Exudate Type Yellow/Green -Wound Margin Thickened & Rolled Under -Granulation Amt Medium (34-66%) -Granulation Quality [place] -Slough/Fibrin Yes -Necrosis Amt Small (1-33%) -Necrotic Tissue Type Adherent Slough -Structure Exposed N/A -Texture (Lisa-wound Skin Appearance) Assessed -Moisture (Lisa-wound Skin Appearance Dry/Scaly ) -Color (Lisa-wound Skin Appearance) Assessed -Temperature (Lisa-wound Skin No Abnormality Appearance) (Pt Warm) -Tenderness on Palpation (Lisa-wound No Skin Appearance) -Ulcer Cleansing Wound Cleanser -Foul Odor after Cleansing No -Anesthetic Used 4% Lidocaine Solution #6 POSTERIOR LLE -Combined with other wound No -Current Size (cm) - Length 5.7 -Current Size (cm) - Width 1.6 -Current Size (cm) - Depth 0.3 -Total Square Cm 9.12 -Tunneling No -Undermining/Tunneling No -Circular Undermining No -Exudate Amt Medium -Exudate Type Serosanguineous -Wound Margin Thickened & Rolled Under -Granulation Amt Medium (34-66%) -Granulation Quality [place] -Slough/Fibrin Yes -Necrosis Amt Small (1-33%) -Necrotic Tissue Type Adherent Slough -Structure Exposed N/A -Texture (Lisa-wound Skin Appearance) Assessed -Moisture (Lisa-wound Skin Appearance Dry/Scaly ) -Color (Lisa-wound Skin Appearance) Assessed -Temperature (Lisa-wound Skin No Abnormality Appearance) (Pt Warm) -Tenderness on Palpation (Lisa-wound No Skin Appearance) -Ulcer Cleansing Wound Cleanser -Foul Odor after Cleansing No -Anesthetic Used 4% Lidocaine Solution #4 POSTERIOR RLE -Combined with other wound No -Current Size (cm) - Length 0.8 -Current Size (cm) - Width 1.4 -Current Size (cm) - Depth 0.2 -Total Square Cm 1.12 -Tunneling No -Undermining/Tunneling No -Circular Undermining No -Exudate Amt Medium -Exudate Type Serosanguineous -Wound Margin Thickened & Rolled Under -Granulation Amt Medium (34-66%) -Granulation Quality [place] -Slough/Fibrin Yes -Necrosis Amt Small (1-33%) -Necrotic Tissue Type Adherent Slough -Structure Exposed N/A -Texture (Lisa-wound Skin Appearance) Assessed -Moisture (Lisa-wound Skin Appearance Assessed ) -Color (Lisa-wound Skin Appearance) Assessed -Temperature (Lisa-wound Skin No Abnormality Appearance) (Pt Warm) -Tenderness on Palpation (Lisa-wound No Skin Appearance) -Ulcer Cleansing Wound Cleanser -Foul Odor after Cleansing No -Anesthetic Used 4% Lidocaine Solution WC - Nurse 3 - General Ulcer D/C NN Start: 11/27/20 09:05 Freq: Status: Active Protocol: Activity Type Activity Date Activity User E-Sign Co-Sign Detail Recorded Client Recorded Date Recorded By Document 11/27/20 09:54 LYNETTE [id number] 11/27/20 09:58 LYNETTE 11/27/20 09:54 Wound Care Nurse 3 [Wound Dressing] # 25 left orellana cluster -Ulcer Cleansing Rinsed/ Irrigated with Saline -Primary Dressing Applied Promogran Alana Matter -Primary Dressing Covered/Secured Dry Gauze & with Roll Gauze, Secured with Tape -Promogran Alana Matter 1 23-right superior achilles -Ulcer Cleansing Rinsed/ Irrigated with Saline -Primary Dressing Applied Promogran Alana Matter -Primary Dressing Covered/Secured Dry Gauze & with Roll Gauze, Secured with Tape -Promogran Alana Matter 1 #21 R Med [place] -Primary Dressing Covered/Secured Dry Gauze & with Roll Gauze, Secured with Tape #20 R med orellana sup -Ulcer Cleansing Rinsed/ Irrigated with Saline -Foul Odor after Cleansing No -Primary Dressing Covered/Secured Dry Gauze & with Roll Gauze, Secured with Tape #26 right great toe -Ulcer Cleansing Rinsed/ Irrigated with Saline -Primary Dressing Covered/Secured Dry Gauze & with Roll Gauze, Secured with Tape #11 RIGHT MEDIAL FOOT -Ulcer Cleansing Rinsed/ Irrigated with Saline -Primary Dressing Covered/Secured Dry Gauze & with Roll Gauze, Secured with Tape #6 POSTERIOR LLE -Ulcer Cleansing Rinsed/ Irrigated with Saline -Primary Dressing Covered/Secured Dry Gauze & with Roll Gauze, Secured with Tape #4 POSTERIOR RLE -Ulcer Cleansing Rinsed/ Irrigated with Saline -Primary Dressing Covered/Secured Dry Gauze & with Roll Gauze, Secured with Tape Pain Scale: 0-10 Numeric [Pain] -Is Patient Pain Free? Yes WC - Visit Discharge [Visit Discharge Information] -Discharge Condition Stable -Ambulatory Status Ambulatory -Transportation Private Auto -Accompanied by Musculoskeletal: No Tenderness to Palpation of Joints or Extremities, Muscle Wasting, - - Ray resection right foot. No bogginess or fluctuance bilateral lower extremities. Compartments remain soft Neurological: - - Lack of normal epicritic sensation light touch is consistent with neuropathy status. Psych/Mental Status: Normal Affect, Appropriate Debridement Note Post-Debridement Measurements/Treatment WC - Nurse 3 - General Ulcer D/C NN Start: 11/27/20 09:05 Freq: Status: Active Protocol: Activity Type Activity Date Activity User E-Sign Co-Sign Detail Recorded Client Recorded Date Recorded By Document 11/27/20 09:54 LYNETTE [id number] 11/27/20 09:58 LYNETTE 11/27/20 09:54 Wound Care Nurse 3 # 25 left orellana cluster -Ulcer Cleansing Rinsed/ Irrigated with Saline -Primary Dressing Applied Promogran Alana Matter -Primary Dressing Covered/Secured with Dry Gauze & Roll Gauze, Secured with Tape -Promogran Alana Matter 1 23-right superior achilles -Ulcer Cleansing Rinsed/ Irrigated with Saline -Primary Dressing Applied Promogran Alana Matter -Primary Dressing Covered/Secured with Dry Gauze & Roll Gauze, Secured with Tape -Promogran Alana Matter 1 #21 R Med [place] -Primary Dressing Covered/Secured with Dry Gauze & Roll Gauze, Secured with Tape #20 R med orellana sup -Ulcer Cleansing Rinsed/ Irrigated with Saline -Foul Odor after Cleansing No -Primary Dressing Covered/Secured with Dry Gauze & Roll Gauze, Secured with Tape #26 right great toe -Ulcer Cleansing Rinsed/ Irrigated with Saline -Primary Dressing Covered/Secured with Dry Gauze & Roll Gauze, Secured with Tape #11 RIGHT MEDIAL FOOT -Ulcer Cleansing Rinsed/ Irrigated with Saline -Primary Dressing Covered/Secured with Dry Gauze & Roll Gauze, Secured with Tape #6 POSTERIOR LLE -Ulcer Cleansing Rinsed/ Irrigated with Saline -Primary Dressing Covered/Secured with Dry Gauze & Roll Gauze, Secured with Tape #4 POSTERIOR RLE -Ulcer Cleansing Rinsed/ Irrigated with Saline -Primary Dressing Covered/Secured with Dry Gauze & Roll Gauze, Secured with Tape Pain Scale: 0-10 Numeric Is Patient Pain Free? Yes WC - Visit Discharge Discharge Condition Stable Ambulatory Status Ambulatory Transportation Private Auto Accompanied by Wound debrided: plantar medial 1st metatarsal head, hallux, ant legx2 Laterality: Right Wound Grade/Stage: grade 1 Type of Debridement: Excisional debridement Anesthesia Used: 5% Lidocaine Gel Depth: in the subcutaneous layer Percentage of wound debrided: 100 Instrument Used: #15 blade Tissue Removed: fibrous, devitalized subcutaneous, biofilm, slough Severity: Fat Layer Exposed Amount of bleeding with debridement: Mild Bleeding Controlled with: Pressure Patient tolerated procedure well - Additional Wound Wound debrided: posterior leg, plantar arch Laterality: Right Wound Grade/Stage: grade 3 Type of Debridement: Excisional debridement Anesthesia Used: 5% Lidocaine Gel Depth: in the subcutaneous layer Percentage of wound debrided: 100 Instrument Used: #15 blade Tissue Removed: fibrous, devitalized subcutaneous, biofilm, slough Severity: Fat Layer Exposed Amount of bleeding with debridement: Mild Bleeding Controlled with: Pressure Patient tolerated procedure: Patient tolerated procedure well - Additional Wound Wound debrided: posterior leg 2 Laterality: Left Wound Grade/Stage: grade 2 Type of Debridement: Excisional debridement Anesthesia Used: 5% Lidocaine Gel Depth: in the subcutaneous layer Percentage of wound debrided: 100 Instrument Used: #15 blade Tissue Removed: fibrous, devitalized subcutaneous, biofilm, slough Severity: Fat Layer Exposed Amount of bleeding with debridement: Mild Bleeding Controlled with: Pressure Patient tolerated procedure: Patient tolerated procedure well Assessment/Plan Active Problems (Last Updated 09/28/18 @ 12:41 by Geraldine Steele) Smoker (Acute) Ulcer of right foot with fat layer exposed (Acute) 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 -Right plantar medial first metatarsal head ulcer at prior skin tear site, grade 1. -Right posterior leg ulcer grade 1, no infection. -right anterior leg ulcers (medial, superior, anterior, inferior) grade 1, no infection. -right anterior proximal leg ulcer grade 1, no infection. -left leg ulcer proximal to tibial tuberosity, no infection. -Prior status post operating room excisional subcutaneous and tendon debridements to bilateral legs and right foot with additional application of advanced wound healing products to bilateral posterior lower legs--no infection and stable today -improvement noted. 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 -previous bilateral leg fasciotomies and debridements and irrigation performed previously now with right and left leg ulcers with fat and tendon layers exposed. -diabetic neuropathy. -malnutrition suspected. 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 -delayed healing. -gait impairment and fall risk. -other comorbidities. -Continued smoking habits Plan: I reviewed and discussed his case today. Debridement was performed to all sites as noted in the nursing panel in a subcutaneous excisional manner. Compliance was reviewed while he is outside he needs to wear a cam walker to avoid these types of injuries. To change daily with Alana, collagen product. To wash with Dial soap and water and periodically antimicrobial Puja-Hex soap. He was reassured no local or systemic signs of illness is suspected today. To continue increased protein intake with nutritional supplementation. To continue glycemic control. He had a previous arterial Doppler scheduled with Dr. Morgan's staff on August 02, 2018 and overall perfusion was confirmed; additional intervention or workup was not recommended. It is also noted that he did have venous Doppler performed with reflux evaluation. He did not have evidence of deep venous thrombosis or venous insufficiency at that time; the vessels were compressible. I recommend he sustained from smoking and alcohol activities to optimize healing as well. Smoking cessation was encouraged. He elects to proceed with a more palliative care plan and will return to clinic in 2 weeks. Prior workup summary: His workup for vasculitis and underlying autoimmune disorder has been completed. A punch biopsy was sent during his last surgical intervention on June 10 and this demonstrated inflammatory changes without malignancy. He had initial screening labs and so far he has a negative RA titer, HL of the 27, KEVIN, anti-CCP, and rheumatoid factor. Several his antibody screenings were not reportable. Hyperbaric oxygen therapy was recommended and it is noted his ejection fraction was most recently 50%. He refuses at this time. I answered his questions. To return to the wound healing center in 2 week. To call sooner if he has any questions or concerns. Note: [employer] speech recognition soda room operator software was used to create portions of this document. Sound-alike and misspelled words, as well as other soda room operator errors may be contained in the documentation.
[2020-12-18 09:08] VITALS: BP 127/88; PULSE 106; RESP 18; TEMP 36; BMI 32.3
--- NOTE | 2020-12-18 22:56 | PN.PCM_ITS ---
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 Code(s): L97.913 - Non-pressure chronic ulcer of unspecified part of right lower leg with necrosis of muscle (3) Ulcer of right lower extremity with fat layer exposed Status: Chronic Code(s): L97.912 - Non-pressure chronic ulcer of unspecified part of right lower leg with fat layer exposed (4) Type 2 diabetes mellitus with diabetic polyneuropathy Status: Chronic Code(s): E11.42 - Type 2 diabetes mellitus with diabetic polyneuropathy (5) Delayed wound healing Status: Chronic Code(s): T14.8XXD - Other injury of unspecified body region, subsequent encounter (6) Ulcer of left lower extremity with fat layer exposed Status: Chronic Code(s): L97.922 - Non-pressure chronic ulcer of unspecified part of left lower leg with fat layer exposed (7) Malnutrition Status: Chronic Code(s): E46 - Unspecified protein-calorie malnutrition (8) Smoker Status: Acute Code(s): F17.200 - Nicotine dependence, unspecified, uncomplicated Type of Wound Date of Service: 12/18/20 Chief Complaint: right and left Leg ulcers and right foot ulcer History of Wound: Mr. Arguello is a 65-year-old male with multiple comorbidities follows up for delayed healing ulcers to the right foot as well as bilateral legs. He denies chills, fever, nausea, or vomiting. He denies odor or redness. He denies pain. He changes the dressings as advised with Adaptic and Aquacel Ag. He is with his today. He continues to smoke about 7 or more cigarettes daily and does not plan to reduce use. He elects to proceed forward with a palliative care type program. Progress of Wound: stable - Physical Exam Vital Signs Temp Pulse Resp BP 96.8 F L 106 H 18 127/88 H 12/18/20 09:08 12/18/20 09:08 12/18/20 09:08 12/18/20 09:08 General: Alert, Oriented x3, Cooperative, No apparent distress Extremities: No cyanosis, Capillary Refill Less than 3 Seconds, No Calf Tenderness, Diminished Peripheral Pulses, Edema - Mild Skin: Ulcer/ Wound - No purulence, erythema, streaking, odor, infection. His skin is atrophic and hairless bilateral. There is some devitalized exposed Achilles tendon noted to the posterior right leg at the superior ulcer site. Wound Measurements and Assessment WC - Nurse 1 - General Ulcer Measurement Start: 11/27/20 09:05 Freq: Status: Active Protocol: Activity Type Activity Date Activity User E-Sign Co-Sign Detail Recorded Client Recorded Date Recorded By Document 12/18/20 09:08 RB [id number] 12/18/20 09:29 RB 12/18/20 09:08 Wound Center Nurse 1 [Ulcer Assessment] 27. R Heel lateral -Combined with other wound No -Current Size (cm) - Length 0.7 -Current Size (cm) - Width 1.5 -Current Size (cm) - Depth 0.1 -Total Square Cm 1.05 -Photo Taken Yes -Tunneling No -Undermining/Tunneling No -Circular Undermining No -Exudate Amt None Present -Granulation Amt None Present (0 %) -Necrosis Amt Large (67-100%) -Necrotic Tissue Type Adherent Slough -Texture (Lisa-wound Skin Appearance) Assessed -Moisture (Lisa-wound Skin Appearance Assessed ) -Color (Lisa-wound Skin Appearance) Assessed -Temperature (Lisa-wound Skin No Abnormality Appearance) (Pt Warm) -Tenderness on Palpation (Lisa-wound No Skin Appearance) -Ulcer Cleansing Wound Cleanser -Foul Odor after Cleansing No -Anesthetic Used 4% Lidocaine Solution # 25 left orellana cluster -Current Size (cm) - Length 2.5 -Current Size (cm) - Width 2.7 -Current Size (cm) - Depth 0.3 -Total Square Cm 6.75 -Tunneling No -Undermining/Tunneling No -Circular Undermining No -Exudate Type Serosanguineous -Wound Margin Flat & Intact -Granulation Amt Medium (34-66%) -Granulation Quality [place] -Slough/Fibrin Yes -Necrosis Amt Medium (34-66%) -Necrotic Tissue Type Adherent Slough -Structure Exposed N/A -Texture (Lisa-wound Skin Appearance) Assessed -Moisture (Lisa-wound Skin Appearance Assessed ) -Color (Lisa-wound Skin Appearance) Assessed -Temperature (Lisa-wound Skin No Abnormality Appearance) (Pt Warm) -Tenderness on Palpation (Lisa-wound No Skin Appearance) -Ulcer Cleansing Wound Cleanser -Foul Odor after Cleansing No -Anesthetic Used 4% Lidocaine Solution 23-right superior achilles -Combined with other wound No -Current Size (cm) - Length 1.7 -Current Size (cm) - Width 1.5 -Current Size (cm) - Depth 0.5 -Total Square Cm 2.55 -Tunneling No -Undermining/Tunneling Yes -Undermining/Tunneling Starts (O' 5 clock) -Undermining/Tunneling Ends (O'clock) 8 -Maximum Distance (cm) 0.5 -Exudate Amt Medium -Exudate Type Serosanguineous -Wound Margin Thickened & Rolled Under -Granulation Amt Small (1-33%) -Granulation Quality [place] -Slough/Fibrin Yes -Necrosis Amt Large (67-100%) -Necrotic Tissue Type Adherent Slough -Structure Exposed N/A -Texture (Lisa-wound Skin Appearance) Assessed -Moisture (Lisa-wound Skin Appearance Assessed ) -Color (Lisa-wound Skin Appearance) Assessed -Temperature (Lisa-wound Skin No Abnormality Appearance) (Pt Warm) -Tenderness on Palpation (Lisa-wound No Skin Appearance) -Ulcer Cleansing Wound Cleanser -Foul Odor after Cleansing No -Anesthetic Used 4% Lidocaine Solution #21 R Med [place] -Combined with other wound No -Current Size (cm) - Length 0.1 -Current Size (cm) - Width 0.1 -Current Size (cm) - Depth 0.1 -Total Square Cm 0.01 -Tunneling No -Undermining/Tunneling No -Circular Undermining No -Exudate Amt Small -Exudate Type Serosanguineous -Wound Margin Flat & Intact -Granulation Amt Medium (34-66%) -Granulation Quality [place] -Slough/Fibrin Yes -Necrosis Amt Medium (34-66%) -Necrotic Tissue Type Adherent Slough -Structure Exposed N/A -Texture (Lisa-wound Skin Appearance) Assessed -Moisture (Lisa-wound Skin Appearance Assessed ) -Color (Lisa-wound Skin Appearance) Assessed -Temperature (Lisa-wound Skin No Abnormality Appearance) (Pt Warm) -Tenderness on Palpation (Lisa-wound No Skin Appearance) -Ulcer Cleansing Wound Cleanser -Foul Odor after Cleansing No -Anesthetic Used 4% Lidocaine Solution #20 R med orellana sup -Combined with other wound No -Current Size (cm) - Length 1.7 -Current Size (cm) - Width 0.5 -Current Size (cm) - Depth 0.1 -Total Square Cm 0.85 -Tunneling No -Undermining/Tunneling No -Circular Undermining No -Exudate Amt Small -Exudate Type Serosanguineous -Wound Margin Flat & Intact -Granulation Amt Medium (34-66%) -Granulation Quality [place] -Slough/Fibrin Yes -Necrosis Amt Small (1-33%) -Necrotic Tissue Type Adherent Slough -Structure Exposed N/A -Texture (Lisa-wound Skin Appearance) Assessed -Moisture (Lisa-wound Skin Appearance Assessed ) -Color (Lisa-wound Skin Appearance) Assessed -Temperature (Lisa-wound Skin No Abnormality Appearance) (Pt Warm) -Tenderness on Palpation (Lisa-wound No Skin Appearance) -Ulcer Cleansing Wound Cleanser -Foul Odor after Cleansing No -Anesthetic Used 4% Lidocaine Solution #26 right great toe -Combined with other wound No -Current Size (cm) - Length 0.9 -Current Size (cm) - Width 0.5 -Current Size (cm) - Depth 0.1 -Total Square Cm 0.45 -Tunneling No -Undermining/Tunneling No -Circular Undermining No -Exudate Amt Small -Exudate Type Serosanguineous -Granulation Amt Medium (34-66%) -Granulation Quality [place] -Slough/Fibrin Yes -Necrosis Amt Small (1-33%) -Necrotic Tissue Type Adherent Slough -Structure Exposed N/A -Texture (Lisa-wound Skin Appearance) Assessed -Moisture (Lisa-wound Skin Appearance Assessed ) -Color (Lisa-wound Skin Appearance) Assessed -Temperature (Lisa-wound Skin No Abnormality Appearance) (Pt Warm) -Tenderness on Palpation (Lisa-wound No Skin Appearance) -Ulcer Cleansing Wound Cleanser -Foul Odor after Cleansing No -Anesthetic Used 4% Lidocaine Solution #11 RIGHT MEDIAL FOOT -Combined with other wound No -Current Size (cm) - Length 5 -Current Size (cm) - Width 4 -Current Size (cm) - Depth 1 -Total Square Cm 20 -Tunneling No -Undermining/Tunneling No -Circular Undermining No -Exudate Amt Medium -Wound Margin Thickened & Rolled Under -Granulation Amt Medium (34-66%) -Granulation Quality [place] -Slough/Fibrin Yes -Necrosis Amt Small (1-33%) -Necrotic Tissue Type Adherent Slough -Structure Exposed N/A -Texture (Lisa-wound Skin Appearance) Assessed -Moisture (Lisa-wound Skin Appearance Assessed ) -Color (Lisa-wound Skin Appearance) Assessed -Temperature (Lisa-wound Skin No Abnormality Appearance) (Pt Warm) -Tenderness on Palpation (Lisa-wound No Skin Appearance) -Ulcer Cleansing Wound Cleanser -Foul Odor after Cleansing No -Anesthetic Used 4% Lidocaine Solution #6 POSTERIOR LLE -Combined with other wound No -Current Size (cm) - Length 6.3 -Current Size (cm) - Width 1.2 -Current Size (cm) - Depth 0.7 -Total Square Cm 7.56 -Tunneling No -Undermining/Tunneling No -Circular Undermining No -Exudate Amt Small -Exudate Type Serosanguineous -Wound Margin Flat & Intact -Granulation Amt Medium (34-66%) -Granulation Quality [place] -Slough/Fibrin Yes -Necrosis Amt Small (1-33%) -Structure Exposed N/A -Texture (Lisa-wound Skin Appearance) Assessed -Moisture (Lisa-wound Skin Appearance Assessed ) -Color (Lisa-wound Skin Appearance) Assessed -Temperature (Lisa-wound Skin No Abnormality Appearance) (Pt Warm) -Tenderness on Palpation (Lisa-wound No Skin Appearance) -Ulcer Cleansing Wound Cleanser -Foul Odor after Cleansing No -Anesthetic Used 4% Lidocaine Solution #4 POSTERIOR RLE -Combined with other wound No -Current Size (cm) - Length 5.7 -Current Size (cm) - Width 5.7 -Current Size (cm) - Depth 0.6 -Total Square Cm 32.49 -Tunneling No -Undermining/Tunneling No -Circular Undermining No -Exudate Amt Small -Exudate Type Serosanguineous -Wound Margin Flat & Intact -Granulation Amt Medium (34-66%) -Granulation Quality [place] -Slough/Fibrin Yes -Necrosis Amt Small (1-33%) -Necrotic Tissue Type Adherent Slough -Structure Exposed N/A -Texture (Lisa-wound Skin Appearance) Assessed -Moisture (Lisa-wound Skin Appearance Assessed ) -Color (Lisa-wound Skin Appearance) Assessed -Temperature (Lisa-wound Skin No Abnormality Appearance) (Pt Warm) -Tenderness on Palpation (Lisa-wound No Skin Appearance) -Ulcer Cleansing Wound Cleanser -Foul Odor after Cleansing No -Anesthetic Used 4% Lidocaine Solution WC - Nurse 2 - General Ulcer CM Notes Start: 11/27/20 09:05 Freq: Status: Active Protocol: Activity Type Activity Date Activity User E-Sign Co-Sign Detail Recorded Client Recorded Date Recorded By Document 12/18/20 09:32 JAMAL [id number] 12/18/20 09:48 JAMAL 12/18/20 09:32 Wound Center Nurse 2 [Procedure/Treatment] 27. R Heel lateral -Time 09:33 -Correct Patient Yes -Correct Side, Site, Position Yes -Correct Procedure Yes -Procedure Performed Yes -Type of Procedure Debridement -Clinical Debridement Subcutaneous -Tissue Removed Subcutaneous -Post Debridement (cm) - Length 0.8 -Post Debridement (cm) - Width 1.5 -Post Debridement (cm) - Depth 0.1 -Total Square (Post) (cm) 1.20 -Area of Debridement (cm) - Length 0.8 -Area of Debridement (cm) - Width 1.5 -Total Square (Area) (cm) 1.20 -Tunneling No -Undermining/Tunneling No -Circular Undermining No -Wound/Ulcer Outcome Not Healed -Ulcer Cleansing Rinsed/ Irrigated with Saline -Foul Odor after Cleansing No -Bioengineered Tissue No -Bleeding Controlled with Pressure -Offloading No -Treatment Response Procedure Tolerated Well -Debridement - Subq, 1st 20sq cm Yes # 25 left orellana cluster -Time 09:33 -Correct Patient Yes -Correct Side, Site, Position Yes -Correct Procedure Yes -Procedure Performed Yes -Type of Procedure Debridement -Clinical Debridement Subcutaneous -Tissue Removed Subcutaneous -Post Debridement (cm) - Length 2.6 -Post Debridement (cm) - Width 2.7 -Post Debridement (cm) - Depth 0.3 -Total Square (Post) (cm) 7.02 -Area of Debridement (cm) - Length 2.6 -Area of Debridement (cm) - Width 2.7 -Total Square (Area) (cm) 7.02 -Tunneling No -Undermining/Tunneling No -Circular Undermining No -Wound/Ulcer Outcome Not Healed -Ulcer Cleansing Rinsed/ Irrigated with Saline -Foul Odor after Cleansing No -Bioengineered Tissue No -Bleeding Controlled with Pressure -Offloading No -Treatment Response Procedure Tolerated Well -Debridement - Subq, 1st 20sq cm No 23-right superior achilles -Time 09:34 -Correct Patient Yes -Correct Side, Site, Position Yes -Correct Procedure Yes -Procedure Performed Yes -Type of Procedure Debridement -Clinical Debridement Muscle / Fascia -Tissue Removed Tendon -Post Debridement (cm) - Length 1.8 -Post Debridement (cm) - Width 1.8 -Post Debridement (cm) - Depth 0.5 -Total Square (Post) (cm) 3.24 -Area of Debridement (cm) - Length 1.8 -Area of Debridement (cm) - Width 1.8 -Total Square (Area) (cm) 3.24 -Tunneling No -Undermining/Tunneling No -Circular Undermining No -Wound/Ulcer Outcome Not Healed -Ulcer Cleansing Rinsed/ Irrigated with Saline -Foul Odor after Cleansing No -Bioengineered Tissue No -Bleeding Controlled with Pressure -Offloading No -Treatment Response Procedure Tolerated Well -Debridement - Subq, 1st 20sq cm No -Debridement - Muscle / Fascia, 1st Yes 20sq cm #21 R Med [place] -Time 09:36 -Correct Patient Yes -Correct Side, Site, Position Yes -Correct Procedure Yes -Procedure Performed Yes -Type of Procedure Debridement -Clinical Debridement Subcutaneous -Tissue Removed Subcutaneous -Post Debridement (cm) - Length 0.2 -Post Debridement (cm) - Width 0.2 -Post Debridement (cm) - Depth 0.2 -Total Square (Post) (cm) 0.04 -Area of Debridement (cm) - Length 0.2 -Area of Debridement (cm) - Width 0.2 -Total Square (Area) (cm) 0.04 -Tunneling No -Undermining/Tunneling No -Circular Undermining No -Wound/Ulcer Outcome Not Healed -Ulcer Cleansing Rinsed/ Irrigated with Saline -Foul Odor after Cleansing No -Bioengineered Tissue No -Bleeding Controlled with Pressure -Offloading No -Treatment Response Procedure Tolerated Well -Debridement - Subq, 1st 20sq cm No #20 R med orellana sup -Time 09:37 -Correct Patient Yes -Correct Side, Site, Position Yes -Correct Procedure Yes -Procedure Performed Yes -Type of Procedure Debridement -Clinical Debridement Subcutaneous -Tissue Removed Subcutaneous -Post Debridement (cm) - Length 1.8 -Post Debridement (cm) - Width 0.5 -Post Debridement (cm) - Depth 0.1 -Total Square (Post) (cm) 0.90 -Area of Debridement (cm) - Length 1.8 -Area of Debridement (cm) - Width 0.5 -Total Square (Area) (cm) 0.90 -Tunneling No -Undermining/Tunneling No -Circular Undermining No -Wound/Ulcer Outcome Not Healed -Ulcer Cleansing Rinsed/ Irrigated with Saline -Foul Odor after Cleansing No -Bioengineered Tissue No -Bleeding Controlled with Pressure -Offloading No -Treatment Response Procedure Tolerated Well -Debridement - Subq, 1st 20sq cm No #26 right great toe -Time 09:38 -Correct Patient Yes -Correct Side, Site, Position Yes -Correct Procedure Yes -Procedure Performed Yes -Type of Procedure Debridement -Clinical Debridement Subcutaneous -Tissue Removed Subcutaneous -Post Debridement (cm) - Length 1 -Post Debridement (cm) - Width 0.5 -Post Debridement (cm) - Depth 0.1 -Total Square (Post) (cm) 0.5 -Area of Debridement (cm) - Length 1 -Area of Debridement (cm) - Width 0.5 -Total Square (Area) (cm) 0.5 -Tunneling No -Undermining/Tunneling No -Circular Undermining No -Wound/Ulcer Outcome Not Healed -Ulcer Cleansing Rinsed/ Irrigated with Saline -Foul Odor after Cleansing No -Bioengineered Tissue No -Bleeding Controlled with Pressure -Offloading No -Treatment Response Procedure Tolerated Well -Debridement - Subq, 1st 20sq cm No #11 RIGHT MEDIAL FOOT -Time 09:39 -Correct Patient Yes -Correct Side, Site, Position Yes -Correct Procedure Yes -Procedure Performed Yes -Type of Procedure Debridement -Clinical Debridement Subcutaneous -Tissue Removed Subcutaneous -Post Debridement (cm) - Length 5.1 -Post Debridement (cm) - Width 4.1 -Post Debridement (cm) - Depth 1 -Total Square (Post) (cm) 20.91 -Area of Debridement (cm) - Length 5.1 -Area of Debridement (cm) - Width 4.1 -Total Square (Area) (cm) 20.91 -Tunneling No -Undermining/Tunneling No -Circular Undermining No -Wound/Ulcer Outcome Not Healed -Ulcer Cleansing Rinsed/ Irrigated with Saline -Foul Odor after Cleansing No -Bioengineered Tissue No -Bleeding Controlled with Pressure -Offloading No -Treatment Response Procedure Tolerated Well -Debridement - Subq, 1st 20sq cm No #6 POSTERIOR LLE -Time 09:40 -Correct Patient Yes -Correct Side, Site, Position Yes -Correct Procedure Yes -Procedure Performed Yes -Type of Procedure Debridement -Clinical Debridement Subcutaneous -Tissue Removed Subcutaneous -Post Debridement (cm) - Length 6.4 -Post Debridement (cm) - Width 1.2 -Post Debridement (cm) - Depth 0.8 -Total Square (Post) (cm) 7.68 -Area of Debridement (cm) - Length 6.4 -Area of Debridement (cm) - Width 1.2 -Total Square (Area) (cm) 7.68 -Tunneling No -Undermining/Tunneling No -Circular Undermining No -Wound/Ulcer Outcome Not Healed -Ulcer Cleansing Rinsed/ Irrigated with Saline -Foul Odor after Cleansing No -Bioengineered Tissue No -Bleeding Controlled with Pressure -Offloading No -Treatment Response Procedure Tolerated Well -Debridement - Subq, 1st 20sq cm No #4 POSTERIOR RLE -Time 09:41 -Correct Patient Yes -Correct Side, Site, Position Yes -Correct Procedure Yes -Procedure Performed Yes -Type of Procedure Debridement -Clinical Debridement Subcutaneous -Tissue Removed Subcutaneous -Post Debridement (cm) - Length 5.8 -Post Debridement (cm) - Width 5.8 -Post Debridement (cm) - Depth 0.6 -Total Square (Post) (cm) 33.64 -Area of Debridement (cm) - Length 5.8 -Area of Debridement (cm) - Width 5.8 -Total Square (Area) (cm) 33.64 -Tunneling No -Undermining/Tunneling No -Circular Undermining No -Wound/Ulcer Outcome Not Healed -Ulcer Cleansing Rinsed/ Irrigated with Saline -Foul Odor after Cleansing No -Bioengineered Tissue No -Bleeding Controlled with Pressure -Offloading No -Treatment Response Procedure Tolerated Well -Debridement - Subq, 1st 20sq cm No -Debridement, SubQ, ea addt'l 20sq cm 1 or part thereof [See Physician Procedure note for Specifics] Pain Scale: 0-10 Numeric [Pain] -Is Patient Pain Free? Yes WC - Nurse 3 - General Ulcer D/C NN Start: 11/27/20 09:05 Freq: Status: Active Protocol: Activity Type Activity Date Activity User E-Sign Co-Sign Detail Recorded Client Recorded Date Recorded By Document 12/18/20 15:49 DL [id number] 12/18/20 15:54 DL 12/18/20 15:49 Wound Care Nurse 3 [Wound Dressing] 27. R Heel lateral -Ulcer Cleansing Wound Cleanser -Foul Odor after Cleansing No -Primary Dressing Applied Aquacel Extra -Primary Dressing Covered/Secured Dry Gauze & with Roll Gauze, Secured with Tape -Aquacel Extra 1 # 25 left orellana cluster -Ulcer Cleansing Wound Cleanser -Foul Odor after Cleansing No -Other Dressing aquacedl EX -Primary Dressing Covered/Secured Dry Gauze & with Roll Gauze, Secured with Tape 23-right superior achilles -Ulcer Cleansing Wound Cleanser -Foul Odor after Cleansing No -Other Dressing aquacel EX -Primary Dressing Covered/Secured Dry Gauze & with Roll Gauze, Secured with Tape #21 R Med [place] -Ulcer Cleansing Wound Cleanser -Foul Odor after Cleansing No -Other Dressing aquacel Ex -Primary Dressing Covered/Secured Dry Gauze & with Roll Gauze, Secured with Tape #20 R med oerllana sup -Ulcer Cleansing Wound Cleanser -Foul Odor after Cleansing No -Other Dressing aquacelEx -Primary Dressing Covered/Secured Dry Gauze & with Roll Gauze, Secured with Tape #26 right great toe -Ulcer Cleansing Wound Cleanser -Foul Odor after Cleansing No -Other Dressing aquacel Ex -Primary Dressing Covered/Secured Dry Gauze & with Roll Gauze, Secured with Tape #11 RIGHT MEDIAL FOOT -Ulcer Cleansing Wound Cleanser -Foul Odor after Cleansing No -Other Dressing aquacel EX -Primary Dressing Covered/Secured Dry Gauze & with Roll Gauze, Secured with Tape #6 POSTERIOR LLE -Ulcer Cleansing Wound Cleanser -Foul Odor after Cleansing No -Other Dressing aqACEL eX -Primary Dressing Covered/Secured Dry Gauze & with Roll Gauze, Secured with Tape #4 POSTERIOR RLE -Ulcer Cleansing Wound Cleanser -Foul Odor after Cleansing No -Other Dressing Aquacel AG -Primary Dressing Covered/Secured Dry Gauze & with Roll Gauze, Secured with Tape [Post Procedure Tolerated] -Treatment Response Procedure Tolerated Well Pain Scale: 0-10 Numeric [Pain] -Is Patient Pain Free? Yes WC - Visit Discharge [Visit Discharge Information] -Discharge Condition Stable -Ambulatory Status Wheelchair -Transportation Private Auto Musculoskeletal: No Tenderness to Palpation of Joints or Extremities, Muscle Wasting, - - Compartments soft. Weakness to lower extremities noted Neurological: - - Lack of full normal epicritic sensation light touch is consistent with his neuropathy status Psych/Mental Status: Normal Affect, Appropriate Debridement Note Post-Debridement Measurements/Treatment - Nurse 2 - General Ulcer CM Notes Start: 11/27/20 09:05 Freq: Status: Active Protocol: Activity Type Activity Date Activity User E-Sign Co-Sign Detail Recorded Client Recorded Date Recorded By Document 11/27/20 11:54 PL [id number] 11/27/20 12:22 PL Document 12/18/20 09:32 [id number] 12/18/20 09:48 11/27/20 12/18/20 11:54 09:32 Wound Center Nurse 2 27. R Heel lateral -Time 09:33 -Correct Patient Yes -Correct Side, Site, Position Yes -Correct Procedure Yes -Procedure Performed Yes -Type of Procedure Debridement -Clinical Debridement Subcutaneous -Tissue Removed Subcutaneous -Post Debridement (cm) - Length 0.8 -Post Debridement (cm) - Width 1.5 -Post Debridement (cm) - Depth 0.1 -Total Square (Post) (cm) 1.20 -Area of Debridement (cm) - Length 0.8 -Area of Debridement (cm) - Width 1.5 -Total Square (Area) (cm) 1.20 -Tunneling No -Undermining/Tunneling No -Circular Undermining No -Wound/Ulcer Outcome Not Healed -Ulcer Cleansing Rinsed/ Irrigated with Saline -Foul Odor after Cleansing No -Bioengineered Tissue No -Bleeding Controlled with Pressure -Offloading No -Treatment Response Procedure Tolerated Well -Debridement - Subq, 1st 20sq cm Yes # 25 left orellana cluster -Time 09:38 09:33 -Correct Patient Yes Yes -Correct Side, Site, Position Yes Yes -Correct Procedure Yes Yes -Procedure Performed Yes Yes -Type of Procedure Debridement Debridement -Clinical Debridement Subcutaneous Subcutaneous -Tissue Removed Subcutaneous Subcutaneous -Post Debridement (cm) - Length 1.5 2.6 -Post Debridement (cm) - Width 2.3 2.7 -Post Debridement (cm) - Depth 0.2 0.3 -Total Square (Post) (cm) 3.45 7.02 -Area of Debridement (cm) - Length 1.5 2.6 -Area of Debridement (cm) - Width 2.3 2.7 -Total Square (Area) (cm) 3.45 7.02 -Tunneling No No -Undermining/Tunneling No No -Circular Undermining No No -Wound/Ulcer Outcome Not Healed Not Healed -Ulcer Cleansing Rinsed/ Rinsed/ Irrigated with Irrigated with Saline Saline -Foul Odor after Cleansing No No -Bioengineered Tissue No No -Bleeding Controlled with Pressure -Offloading No -Treatment Response Procedure Tolerated Well -Debridement - Subq, 1st 20sq cm No No 23-right superior achilles -Time 09:38 09:34 -Correct Patient Yes Yes -Correct Side, Site, Position Yes Yes -Correct Procedure Yes Yes -Procedure Performed Yes Yes -Type of Procedure Debridement Debridement -Clinical Debridement Subcutaneous Muscle / Fascia -Tissue Removed Subcutaneous Tendon -Post Debridement (cm) - Length 5.2 1.8 -Post Debridement (cm) - Width 3 1.8 -Post Debridement (cm) - Depth 0.2 0.5 -Total Square (Post) (cm) 15.6 3.24 -Area of Debridement (cm) - Length 5.2 1.8 -Area of Debridement (cm) - Width 3 1.8 -Total Square (Area) (cm) 15.6 3.24 -Tunneling No No -Undermining/Tunneling No No -Circular Undermining No No -Wound/Ulcer Outcome Not Healed Not Healed -Ulcer Cleansing Rinsed/ Rinsed/ Irrigated with Irrigated with Saline Saline -Foul Odor after Cleansing No No -Bioengineered Tissue No No -Bleeding Controlled with Pressure -Offloading No -Treatment Response Procedure Tolerated Well -Debridement - Subq, 1st 20sq cm No No -Debridement - Muscle / Fascia, 1st Yes 20sq cm #21 R Med [place] -Time 09:36 -Correct Patient Yes -Correct Side, Site, Position Yes -Correct Procedure Yes -Procedure Performed Yes -Type of Procedure Debridement -Clinical Debridement Subcutaneous -Tissue Removed Subcutaneous -Post Debridement (cm) - Length 0.2 -Post Debridement (cm) - Width 0.2 -Post Debridement (cm) - Depth 0.2 -Total Square (Post) (cm) 0.04 -Area of Debridement (cm) - Length 0.2 -Area of Debridement (cm) - Width 0.2 -Total Square (Area) (cm) 0.04 -Tunneling No -Undermining/Tunneling No -Circular Undermining No -Wound/Ulcer Outcome Healed- Not Healed Epithelialized -Ulcer Cleansing Rinsed/ Irrigated with Saline -Foul Odor after Cleansing No -Bioengineered Tissue No -Bleeding Controlled with Pressure -Offloading No -Treatment Response Procedure Tolerated Well -Debridement - Subq, 1st 20sq cm No #20 R med orellana sup -Time 09:37 -Correct Patient Yes -Correct Side, Site, Position Yes -Correct Procedure Yes -Procedure Performed Yes -Type of Procedure Debridement -Clinical Debridement Subcutaneous -Tissue Removed Subcutaneous -Post Debridement (cm) - Length 1.8 -Post Debridement (cm) - Width 0.5 -Post Debridement (cm) - Depth 0.1 -Total Square (Post) (cm) 0.90 -Area of Debridement (cm) - Length 1.8 -Area of Debridement (cm) - Width 0.5 -Total Square (Area) (cm) 0.90 -Tunneling No -Undermining/Tunneling No -Circular Undermining No -Wound/Ulcer Outcome Healed- Not Healed Epithelialized -Ulcer Cleansing Rinsed/ Irrigated with Saline -Foul Odor after Cleansing No -Bioengineered Tissue No -Bleeding Controlled with Pressure -Offloading No -Treatment Response Procedure Tolerated Well -Debridement - Subq, 1st 20sq cm No #26 right great toe -Time 09:38 -Correct Patient Yes -Correct Side, Site, Position Yes -Correct Procedure Yes -Procedure Performed Yes -Type of Procedure Debridement -Clinical Debridement Subcutaneous -Tissue Removed Subcutaneous -Post Debridement (cm) - Length 1 -Post Debridement (cm) - Width 0.5 -Post Debridement (cm) - Depth 0.1 -Total Square (Post) (cm) 0.5 -Area of Debridement (cm) - Length 1 -Area of Debridement (cm) - Width 0.5 -Total Square (Area) (cm) 0.5 -Tunneling No -Undermining/Tunneling No -Circular Undermining No -Wound/Ulcer Outcome Healed- Not Healed Epithelialized -Ulcer Cleansing Rinsed/ Irrigated with Saline -Foul Odor after Cleansing No -Bioengineered Tissue No -Bleeding Controlled with Pressure -Offloading No -Treatment Response Procedure Tolerated Well -Debridement - Subq, 1st 20sq cm No #11 RIGHT MEDIAL FOOT -Time 09:38 09:39 -Correct Patient Yes Yes -Correct Side, Site, Position Yes Yes -Correct Procedure Yes Yes -Procedure Performed Yes Yes -Type of Procedure Debridement Debridement -Clinical Debridement Subcutaneous Subcutaneous -Tissue Removed Subcutaneous Subcutaneous -Post Debridement (cm) - Length 4 5.1 -Post Debridement (cm) - Width 3.6 4.1 -Post Debridement (cm) - Depth 0.3 1 -Total Square (Post) (cm) 14.4 20.91 -Area of Debridement (cm) - Length 4 5.1 -Area of Debridement (cm) - Width 3.6 4.1 -Total Square (Area) (cm) 14.4 20.91 -Tunneling No No -Undermining/Tunneling No No -Circular Undermining No -Wound/Ulcer Outcome Not Healed Not Healed -Ulcer Cleansing Rinsed/ Rinsed/ Irrigated with Irrigated with Saline Saline -Foul Odor after Cleansing No No -Bioengineered Tissue No No -Bleeding Controlled with Pressure -Offloading No -Treatment Response Procedure Tolerated Well -Debridement - Subq, 1st 20sq cm No No #6 POSTERIOR LLE -Time 09:38 09:40 -Correct Patient Yes Yes -Correct Side, Site, Position Yes Yes -Correct Procedure Yes Yes -Procedure Performed Yes Yes -Type of Procedure Debridement Debridement -Clinical Debridement Subcutaneous Subcutaneous -Tissue Removed Subcutaneous Subcutaneous -Post Debridement (cm) - Length 5.7 6.4 -Post Debridement (cm) - Width 1.6 1.2 -Post Debridement (cm) - Depth 0.3 0.8 -Total Square (Post) (cm) 9.12 7.68 -Area of Debridement (cm) - Length 5.7 6.4 -Area of Debridement (cm) - Width 1.6 1.2 -Total Square (Area) (cm) 9.12 7.68 -Tunneling No No -Undermining/Tunneling No No -Circular Undermining No No -Wound/Ulcer Outcome Not Healed Not Healed -Ulcer Cleansing Rinsed/ Rinsed/ Irrigated with Irrigated with Saline Saline -Foul Odor after Cleansing No No -Bioengineered Tissue No No -Bleeding Controlled with Pressure Pressure -Offloading No -Treatment Response Procedure Procedure Tolerated Well Tolerated Well -Debridement - Subq, 1st 20sq cm No No #4 POSTERIOR RLE -Time 09:38 09:41 -Correct Patient Yes Yes -Correct Side, Site, Position Yes Yes -Correct Procedure Yes Yes -Procedure Performed Yes Yes -Type of Procedure Debridement Debridement -Clinical Debridement Subcutaneous Subcutaneous -Tissue Removed Subcutaneous Subcutaneous -Post Debridement (cm) - Length 0.8 5.8 -Post Debridement (cm) - Width 1.4 5.8 -Post Debridement (cm) - Depth 0.2 0.6 -Total Square (Post) (cm) 1.12 33.64 -Area of Debridement (cm) - Length 0.8 5.8 -Area of Debridement (cm) - Width 1.4 5.8 -Total Square (Area) (cm) 1.12 33.64 -Tunneling No No -Undermining/Tunneling No No -Circular Undermining No No -Wound/Ulcer Outcome Not Healed Not Healed -Ulcer Cleansing Rinsed/ Rinsed/ Irrigated with Irrigated with Saline Saline -Foul Odor after Cleansing No No -Bioengineered Tissue No No -Bleeding Controlled with Pressure -Offloading No -Treatment Response Procedure Tolerated Well -Debridement - Subq, 1st 20sq cm Yes No -Debridement, SubQ, ea addt'l 20sq cm 1 1 or part thereof Pain Scale: 0-10 Numeric Is Patient Pain Free? Yes Yes - Nurse 3 - General Ulcer D/C NN Start: 11/27/20 09:05 Freq: Status: Active Protocol: Activity Type Activity Date Activity User E-Sign Co-Sign Detail Recorded Client Recorded Date Recorded By Document 11/27/20 09:54 KR [id number] 11/27/20 09:58 KR Document 12/18/20 15:49 DL [id number] 12/18/20 15:54 DL 11/27/20 12/18/20 09:54 15:49 Wound Care Nurse 3 27. R Heel lateral -Ulcer Cleansing Wound Cleanser -Foul Odor after Cleansing No -Primary Dressing Applied Aquacel Extra -Primary Dressing Covered/Secured with Dry Gauze & Roll Gauze, Secured with Tape -Aquacel Extra 1 # 25 left orellana cluster -Ulcer Cleansing Rinsed/ Wound Cleanser Irrigated with Saline -Foul Odor after Cleansing No -Primary Dressing Applied Promogran Alana Matter -Other Dressing aquacedl EX -Primary Dressing Covered/Secured with Dry Gauze & Dry Gauze & Roll Gauze, Roll Gauze, Secured with Secured with Tape Tape -Promogran Alana Matter 1 23-right superior achilles -Ulcer Cleansing Rinsed/ Wound Cleanser Irrigated with Saline -Foul Odor after Cleansing No -Primary Dressing Applied Promogran Alana Matter -Other Dressing aquacel EX -Primary Dressing Covered/Secured with Dry Gauze & Dry Gauze & Roll Gauze, Roll Gauze, Secured with Secured with Tape Tape -Promogran Alana Matter 1 #21 R Med Orellana -Ulcer Cleansing Wound Cleanser -Foul Odor after Cleansing No -Other Dressing aquacel Ex -Primary Dressing Covered/Secured with Dry Gauze & Dry Gauze & Roll Gauze, Roll Gauze, Secured with Secured with Tape Tape #20 R med orellana sup -Ulcer Cleansing Rinsed/ Wound Cleanser Irrigated with Saline -Foul Odor after Cleansing No No -Other Dressing aquacelEx -Primary Dressing Covered/Secured with Dry Gauze & Dry Gauze & Roll Gauze, Roll Gauze, Secured with Secured with Tape Tape #26 right great toe -Ulcer Cleansing Rinsed/ Wound Cleanser Irrigated with Saline -Foul Odor after Cleansing No -Other Dressing aquacel Ex -Primary Dressing Covered/Secured with Dry Gauze & Dry Gauze & Roll Gauze, Roll Gauze, Secured with Secured with Tape Tape #11 RIGHT MEDIAL FOOT -Ulcer Cleansing Rinsed/ Wound Cleanser Irrigated with Saline -Foul Odor after Cleansing No -Other Dressing aquacel EX -Primary Dressing Covered/Secured with Dry Gauze & Dry Gauze & Roll Gauze, Roll Gauze, Secured with Secured with Tape Tape #6 POSTERIOR LLE -Ulcer Cleansing Rinsed/ Wound Cleanser Irrigated with Saline -Foul Odor after Cleansing No -Other Dressing aqACEL eX -Primary Dressing Covered/Secured with Dry Gauze & Dry Gauze & Roll Gauze, Roll Gauze, Secured with Secured with Tape Tape #4 POSTERIOR RLE -Ulcer Cleansing Rinsed/ Wound Cleanser Irrigated with Saline -Foul Odor after Cleansing No -Other Dressing Aquacel AG -Primary Dressing Covered/Secured with Dry Gauze & Dry Gauze & Roll Gauze, Roll Gauze, Secured with Secured with Tape Tape Treatment Response Procedure Tolerated Well Pain Scale: 0-10 Numeric Is Patient Pain Free? Yes Yes WC - Visit Discharge Discharge Condition Stable Stable Ambulatory Status Ambulatory Wheelchair Transportation Private Auto Private Auto Accompanied by Wound debrided: plantar foot, posterior leg (inf and superior) Laterality: Right - g Wound Grade/Stage: grade 3 Type of Debridement: Excisional debridement Anesthesia Used: 5% Lidocaine Gel Depth: in the subcutaneous layer, to muscle Percentage of wound debrided: 100 Instrument Used: #15 blade, Forceps Tissue Removed: fibrous, devitalized subcutaneous and tendon (sup post leg),biofilm, slough Severity: Necrosis of Muscle Amount of bleeding with debridement: Mild Bleeding Controlled with: Pressure Patient tolerated procedure well - Additional Wound Wound debrided: medial forefoot, medial hallux, anterior leg Laterality: Right Wound Grade/Stage: grade 1 Type of Debridement: Excisional debridement Anesthesia Used: 5% Lidocaine Gel Depth: in the subcutaneous layer Percentage of wound debrided: 100 Instrument Used: #15 blade Tissue Removed: fibrous, devitalized subcutaneous, biofilm, slough Severity: Fat Layer Exposed Amount of bleeding with debridement: Mild Bleeding Controlled with: Pressure Patient tolerated procedure: Patient tolerated procedure well - Additional Wound Wound debrided: anterior leg Laterality: Left Wound Grade/Stage: grade 1 Type of Debridement: Excisional debridement Anesthesia Used: 5% Lidocaine Gel Depth: in the subcutaneous layer Percentage of wound debrided: 100 Instrument Used: #15 blade Tissue Removed: fibrous, devitalized subcutaneous, biofilm, slough Severity: Fat Layer Exposed Amount of bleeding with debridement: Mild Bleeding Controlled with: Pressure Patient tolerated procedure: Patient tolerated procedure well - Additional Wound Wound debrided: posterior leg Laterality: Left Wound Grade/Stage: grade 2 Type of Debridement: Excisional debridement Anesthesia Used: 5% Lidocaine Gel Depth: in the subcutaneous layer Percentage of wound debrided: 100 Instrument Used: #15 blade Tissue Removed: fibrous, devitalized subcutaneous, biofilm, slough Severity: Fat Layer Exposed Amount of bleeding with debridement: Mild Bleeding Controlled with: Pressure Patient tolerated procedure: Patient tolerated procedure well Assessment/Plan Active Problems (Last Updated 09/28/18 @ 12:41 by Geraldine Steele) Smoker (Acute) Ulcer of right foot with fat layer exposed (Acute) 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 -Right plantar medial first metatarsal head ulcer at prior skin tear site, grade 1. -Right posterior leg ulcer grade 3 (inferior and superior), no infection. -right anterior leg ulcers (medial, superior, anterior, inferior) grade 1, no infection. -right anterior proximal leg ulcer grade 1, no infection. -left leg ulcer proximal to tibial tuberosity, no infection. -Prior status post operating room excisional subcutaneous and tendon debridements to bilateral legs and right foot with additional application of advanced wound healing products to bilateral posterior lower legs--no infection and stable today -improvement noted. 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 -previous bilateral leg fasciotomies and scott ridements and irrigation performed previously now with right and left leg ulcers with fat and tendon layers exposed. -diabetic neuropathy. -malnutrition suspected. 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 -delayed healing. -gait impairment and fall risk. -other comorbidities. -Continued smoking habits Plan: I reviewed and discussed his case today. Debridement was performed to all sites as noted in the nursing panel in a subcutaneous excisional manner. Compliance was reviewed while he is outside he needs to wear a cam walker to avoid these types of injuries. To change daily with Seeking Alpha, collagen product. To wash with Dial soap and water and periodically antimicrobial Puja- Hex soap. He was reassured no local or systemic signs of illness is suspected today. To continue increased protein intake with nutritional supplementation. To continue glycemic control. He had a previous arterial Doppler scheduled with Dr. Morgan's staff on August 02, 2018 and overall perfusion was confirmed; additional intervention or workup was not recommended. It is also noted that he did have venous Doppler performed with reflux evaluation. He did not have evidence of deep venous thrombosis or venous insufficiency at that time; the vessels were compressible. I recommend he sustained from smoking and alcohol activities to optimize healing as well. Smoking cessation was encouraged. He elects to proceed with a more palliative care plan and will return to clinic in 2 weeks. Prior workup summary: His workup for vasculitis and underlying autoimmune disorder has been completed. A punch biopsy was sent during his last surgical intervention on June 10 and this demonstrated inflammatory changes without malignancy. He had initial screening labs and so far he has a negative RA titer, HL of the 27, KEVIN, anti-CCP, and rheumatoid factor. Several his antibody screenings were not reportable. Hyperbaric oxygen therapy was recommended and it is noted his ejection fraction was most recently 50%. He refuses at this time. I answered his questions. To return to the wound healing center in 2 week. To call sooner if he has any questions or concerns. Note: [employer] speech recognition digital controls technical officer software was used to create portions of this document. Sound-alike and misspelled words, as well as other digital controls technical officer errors may be contained in the documentation.
== END 2020-12-22 23:59 ==
LOC: WC 09:00
PROVIDERS: Family Provider Family Medicine; PCP Family Medicine; Visit Provider Podiatrist
DX: L97.512 Non-pressure chronic ulcer of other part of right foot with fat layer exposed (principal); L97.412 Non-pressure chronic ulcer of right heel and midfoot with fat layer exposed; L97.513 Non-pressure chronic ulcer of other part of right foot with necrosis of muscle; E11.621 Type 2 diabetes mellitus with foot ulcer; E11.42 Type 2 diabetes mellitus with diabetic polyneuropathy; T14.8XXD Other injury of unspecified body region, subsequent encounter; E46 Unspecified protein-calorie malnutrition; L97.922 Non-pressure chronic ulcer of unspecified part of left lower leg with fat layer exposed; F17.210 Nicotine dependence, cigarettes, uncomplicated; R60.0 Localized edema; M72.6 Necrotizing fasciitis
CPT/HCPCS: 11042; 11043; 11045

== ENCOUNTER 2021-01-15 10:00 | Outpatient (RCR) | payer MEDICARE, SELFPAY ==
[2020-12-23 00:18] VITALS: BP 127/88; PULSE 106; RESP 18; TEMP 36
[2021-01-08 09:14] VITALS: TEMP 35; BMI 32.3
--- NOTE | 2021-01-08 11:03 | PN.PCM_ITS ---
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 Code(s): L97.913 - Non-pressure chronic ulcer of unspecified part of right lower leg with necrosis of muscle (2) Ulcer of left lower extremity with fat layer exposed Status: Chronic Code(s): L97.922 - Non-pressure chronic ulcer of unspecified part of left lower leg with fat layer exposed (3) Ulcer of right lower extremity with fat layer exposed Status: Chronic Code(s): L97.912 - Non-pressure chronic ulcer of unspecified part of right lower leg with fat layer exposed (4) Smoker Status: Chronic Code(s): F17.200 - Nicotine dependence, unspecified, uncomplicated (5) Type 2 diabetes mellitus with diabetic polyneuropathy Status: Chronic Code(s): E11.42 - Type 2 diabetes mellitus with diabetic polyneuropathy (6) Chronic kidney disease Status: Chronic Code(s): N18.9 - Chronic kidney disease, unspecified (7) Delayed wound healing Status: Chronic Code(s): T14.8XXD - Other injury of unspecified body region, subsequent encounter (8) NLD (necrobiosis lipoidica diabeticorum) Status: Chronic Code(s): E11.620 - Type 2 diabetes mellitus with diabetic dermatitis Comment: bilateral lower extremities (9) Vasculitis Status: Chronic Code(s): I77.6 - Arteritis, unspecified (10) PVD (peripheral vascular disease) Status: Suspected Code(s): I73.9 - Peripheral vascular disease, unspecified (11) Localized edema Status: Chronic Code(s): R60.0 - Localized edema (12) Malnutrition Status: Chronic Code(s): E46 - Unspecified protein-calorie malnutrition Type of Wound Date of Service: 01/08/21 Chief Complaint: right and left Leg ulcers and right foot ulcer History of Wound: Mr. Arguello is a 65-year-old male with multiple comorbidities follows up for delayed healing ulcers to the right foot as well as bilateral legs. He denies chills, fever, nausea, or vomiting. He denies odor. His reports increased drainage to the right back of the leg where the Achilles tendon is exposed with prior discoloration which has since resolved. she change the dressing daily with Aquacel Ag. He denies pain. He is with his today. He continues to smoke about 10 or more cigarettes daily and does not plan to reduce use. He reports increased bilateral leg discomfort at rest. He elects to proceed forward with a palliative care type program. He also has hand ulcers and will be seen by a another wound care center provider today. Progress of Wound: deteriorization right posterior leg ulcer and to a lesser extent the plantar right foot and posterior left leg ulcer. Other bilateral leg ulcers and right foot ulcer remains stable - Physical Exam Vital Signs Temp Pulse Resp BP 95 F L 106 H 18 127/88 H 01/08/21 09:14 12/23/20 00:18 12/23/20 00:18 12/23/20 00:18 General: Alert, Oriented x3, Cooperative, No apparent distress HEENT: Atraumatic Extremities: No cyanosis, Capillary Refill Less than 3 Seconds, No Calf Tenderness - Negative Errol and Lobato sign. Compartments remain soft to palpate., Diminished Peripheral Pulses, Edema - Mild bilateral lower extremities Skin: Ulcer/ Wound - There is no purulence, erythema, streaking, odor, eschar bilateral lower extremities. Right posterior ulcer has exposed devitalized tendon upon debridement healthy bleeding tendon and subcutaneous tissues noted. There is increased size to the plantar right foot ulcer & also posterior L. leg ulcer, - - The other ulcer sites are granular with intermittent fibrous tissue. His skin is atrophic, hairless, hyperpigmented, and fragile Wound Measurements and Assessment WC - Nurse 1 - General Ulcer Measurement Start: 01/08/21 09:14 Freq: Status: Active Protocol: Activity Type Activity Date Activity User E-Sign Co-Sign Detail Recorded Client Recorded Date Recorded By Document 01/08/21 09:14 [facility] [id number] 01/08/21 09:45 [facility] 01/08/21 09:14 Wound Center Nurse 1 [Ulcer Assessment] 28. L hand 5th digit dorsal -Current Size (cm) - Length 0.6 -Current Size (cm) - Width 0.6 -Current Size (cm) - Depth 0.4 -Total Square Cm 0.36 -Tunneling No -Undermining/Tunneling Yes -Undermining/Tunneling Starts (O' 12 clock) -Undermining/Tunneling Ends (O'clock) 12 -Maximum Distance (cm) 0.5 -Exudate Amt Small -Exudate Type Serosanguineous -Wound Margin Thickened -Granulation Amt Medium (34-66%) -Granulation Quality [place] -Slough/Fibrin Yes -Necrosis Amt Small (1-33%) -Necrotic Tissue Type Adherent Slough -Structure Exposed N/A -Texture (Lisa-wound Skin Appearance) Assessed -Moisture (Lisa-wound Skin Appearance Assessed ) -Color (Lisa-wound Skin Appearance) Assessed -Temperature (Lisa-wound Skin No Abnormality Appearance) (Pt Warm) -Tenderness on Palpation (Lisa-wound No Skin Appearance) -Ulcer Cleansing Wound Cleanser -Foul Odor after Cleansing No -Anesthetic Used 4% Lidocaine Solution 27. R Heel lateral -Combined with other wound No -Current Size (cm) - Length 0.1 -Current Size (cm) - Width 0.1 -Current Size (cm) - Depth 0.1 -Total Square Cm 0.01 -Tunneling No -Undermining/Tunneling No -Circular Undermining No -Exudate Amt Small -Exudate Type Serosanguineous -Wound Margin Thickened -Granulation Amt Medium (34-66%) -Granulation Quality [place] -Slough/Fibrin Yes -Necrosis Amt Small (1-33%) -Necrotic Tissue Type Adherent Slough -Structure Exposed N/A -Texture (Lisa-wound Skin Appearance) Assessed -Moisture (Lisa-wound Skin Appearance Assessed ) -Color (Lisa-wound Skin Appearance) Assessed -Temperature (Lisa-wound Skin No Abnormality Appearance) (Pt Warm) -Tenderness on Palpation (Lisa-wound No Skin Appearance) -Ulcer Cleansing Wound Cleanser -Foul Odor after Cleansing No -Anesthetic Used 4% Lidocaine Solution # 25 left orellana cluster -Combined with other wound No -Current Size (cm) - Length 2.6 -Current Size (cm) - Width 2.8 -Current Size (cm) - Depth 0.3 -Total Square Cm 7.28 -Tunneling No -Undermining/Tunneling No -Circular Undermining No -Exudate Amt Small -Exudate Type Serosanguineous -Wound Margin Thickened -Granulation Amt Medium (34-66%) -Granulation Quality [place] -Slough/Fibrin Yes -Necrosis Amt Small (1-33%) -Necrotic Tissue Type Adherent Slough -Structure Exposed N/A -Texture (Lisa-wound Skin Appearance) Assessed -Moisture (Lisa-wound Skin Appearance Assessed ) -Color (Lisa-wound Skin Appearance) Assessed -Temperature (Lisa-wound Skin No Abnormality Appearance) (Pt Warm) -Tenderness on Palpation (Lisa-wound No Skin Appearance) -Ulcer Cleansing Rinsed/ Irrigated with Saline -Foul Odor after Cleansing No -Anesthetic Used 4% Lidocaine Solution 23-right superior achilles -Combined with other wound No -Current Size (cm) - Length 3 -Current Size (cm) - Width 3 -Current Size (cm) - Depth 0.3 -Total Square Cm 9 -Tunneling No -Undermining/Tunneling No -Circular Undermining No -Exudate Amt Small -Exudate Type Serosanguineous -Granulation Amt Medium (34-66%) -Granulation Quality [place] -Slough/Fibrin Yes -Necrosis Amt Medium (34-66%) -Necrotic Tissue Type Adherent Slough -Structure Exposed Tendon -Texture (Lisa-wound Skin Appearance) Assessed -Moisture (Lisa-wound Skin Appearance Assessed ) -Color (Lisa-wound Skin Appearance) Assessed -Temperature (Lisa-wound Skin No Abnormality Appearance) (Pt Warm) -Tenderness on Palpation (Lisa-wound No Skin Appearance) -Ulcer Cleansing Wound Cleanser -Foul Odor after Cleansing No -Anesthetic Used 4% Lidocaine Solution #21 R Med [place] -Combined with other wound No -Current Size (cm) - Length 0.1 -Current Size (cm) - Width 0.1 -Current Size (cm) - Depth 0.1 -Total Square Cm 0.01 -Tunneling No -Undermining/Tunneling No -Circular Undermining No -Exudate Amt Small -Exudate Type Serosanguineous -Wound Margin Flat & Intact -Granulation Amt Medium (34-66%) -Granulation Quality [place] -Slough/Fibrin Yes -Necrosis Amt Medium (34-66%) -Necrotic Tissue Type Adherent Slough -Structure Exposed N/A -Texture (Lisa-wound Skin Appearance) Assessed -Moisture (Lisa-wound Skin Appearance Assessed ) -Color (Lisa-wound Skin Appearance) Assessed -Temperature (Lisa-wound Skin No Abnormality Appearance) (Pt Warm) -Tenderness on Palpation (Lisa-wound No Skin Appearance) -Ulcer Cleansing Wound Cleanser -Foul Odor after Cleansing No -Anesthetic Used 4% Lidocaine Solution #20 R med orellana sup -Combined with other wound No -Current Size (cm) - Length 1 -Current Size (cm) - Width 0.5 -Current Size (cm) - Depth 0.2 -Total Square Cm 0.5 -Tunneling No -Undermining/Tunneling No -Circular Undermining No -Exudate Amt Medium -Exudate Type Serosanguineous -Wound Margin Flat & Intact -Granulation Amt Medium (34-66%) -Granulation Quality [place] -Slough/Fibrin Yes -Necrosis Amt Small (1-33%) -Necrotic Tissue Type Adherent Slough -Structure Exposed N/A -Texture (Lisa-wound Skin Appearance) Assessed -Moisture (Lisa-wound Skin Appearance Assessed ) -Color (Lisa-wound Skin Appearance) Assessed -Temperature (Lisa-wound Skin No Abnormality Appearance) (Pt Warm) -Tenderness on Palpation (Lisa-wound No Skin Appearance) -Ulcer Cleansing Wound Cleanser -Foul Odor after Cleansing No -Anesthetic Used 4% Lidocaine Solution #26 right great toe -Combined with other wound No -Current Size (cm) - Length 0.9 -Current Size (cm) - Width 0.4 -Current Size (cm) - Depth 0.3 -Total Square Cm 0.36 -Tunneling No -Undermining/Tunneling No -Circular Undermining No -Exudate Amt Small -Exudate Type Serosanguineous -Wound Margin Thickened -Granulation Amt Medium (34-66%) -Granulation Quality [place] -Slough/Fibrin Yes -Necrosis Amt Small (1-33%) -Necrotic Tissue Type Adherent Slough -Structure Exposed N/A -Texture (Lisa-wound Skin Appearance) Assessed -Moisture (Lisa-wound Skin Appearance Assessed ) -Color (Lisa-wound Skin Appearance) Assessed -Temperature (Lisa-wound Skin No Abnormality Appearance) (Pt Warm) -Tenderness on Palpation (Lisa-wound No Skin Appearance) -Ulcer Cleansing Wound Cleanser -Foul Odor after Cleansing No -Anesthetic Used 4% Lidocaine Solution #11 RIGHT MEDIAL FOOT -Combined with other wound No -Current Size (cm) - Length 6.3 -Current Size (cm) - Width 4.5 -Current Size (cm) - Depth 0.4 -Total Square Cm 28.35 -Tunneling No -Undermining/Tunneling No -Circular Undermining No -Exudate Amt Medium -Exudate Type Serosanguineous -Wound Margin Thickened -Granulation Amt Medium (34-66%) -Granulation Quality [place] -Slough/Fibrin Yes -Necrosis Amt Medium (34-66%) -Necrotic Tissue Type Adherent Slough -Structure Exposed N/A -Texture (Lisa-wound Skin Appearance) Assessed -Moisture (Lisa-wound Skin Appearance Assessed ) -Color (Lisa-wound Skin Appearance) Assessed -Temperature (Lisa-wound Skin No Abnormality Appearance) (Pt Warm) -Tenderness on Palpation (Lisa-wound No Skin Appearance) -Ulcer Cleansing Wound Cleanser -Foul Odor after Cleansing No -Anesthetic Used 4% Lidocaine Solution #6 POSTERIOR LLE -Combined with other wound No -Current Size (cm) - Length 7.3 -Current Size (cm) - Width 2 -Current Size (cm) - Depth 0.5 -Total Square Cm 14.6 -Tunneling No -Undermining/Tunneling No -Circular Undermining No -Exudate Amt Medium -Exudate Type Serosanguineous -Wound Margin Thickened -Granulation Amt Medium (34-66%) -Granulation Quality [place] -Slough/Fibrin Yes -Necrosis Amt Medium (34-66%) -Necrotic Tissue Type Adherent Slough -Structure Exposed N/A -Texture (Lisa-wound Skin Appearance) Assessed -Moisture (Lisa-wound Skin Appearance Assessed ) -Color (Lisa-wound Skin Appearance) Assessed -Temperature (Lisa-wound Skin No Abnormality Appearance) (Pt Warm) -Tenderness on Palpation (Lisa-wound No Skin Appearance) -Ulcer Cleansing Wound Cleanser -Foul Odor after Cleansing No -Anesthetic Used 4% Lidocaine Solution #4 POSTERIOR RLE -Combined with other wound No -Current Size (cm) - Length 6 -Current Size (cm) - Width 3.5 -Current Size (cm) - Depth 0.4 -Total Square Cm 21.0 -Tunneling No -Undermining/Tunneling No -Circular Undermining No -Exudate Amt Small -Exudate Type Serosanguineous -Wound Margin Thickened -Granulation Amt Medium (34-66%) -Granulation Quality [place] -Slough/Fibrin Yes -Necrosis Amt Small (1-33%) -Necrotic Tissue Type Adherent Slough -Structure Exposed N/A -Texture (Lisa-wound Skin Appearance) Assessed -Moisture (Lisa-wound Skin Appearance Assessed ) -Color (Lisa-wound Skin Appearance) Assessed -Temperature (Lisa-wound Skin No Abnormality Appearance) (Pt Warm) -Tenderness on Palpation (Lisa-wound No Skin Appearance) -Ulcer Cleansing Wound Cleanser -Foul Odor after Cleansing No -Anesthetic Used 4% Lidocaine Solution JOAO - Nurse 2 - General Ulcer CM Notes Start: 01/08/21 09:14 Freq: Status: Active Protocol: Activity Type Activity Date Activity User E-Sign Co-Sign Detail Recorded Client Recorded Date Recorded By Document 01/08/21 10:16 MW [id number] 01/08/21 10:25 MW 01/08/21 10:16 Wound Center Nurse 2 [Procedure/Treatment] 28. L hand 5th digit dorsal -Time 10:18 -Correct Patient Yes -Correct Side, Site, Position Yes -Correct Procedure Yes -Procedure Performed Yes -Type of Procedure Debridement -Clinical Debridement Subcutaneous -Tissue Removed Subcutaneous -Post Debridement (cm) - Length 1.0 -Post Debridement (cm) - Width 1.0 -Post Debridement (cm) - Depth 0.3 -Total Square (Post) (cm) 1.00 -Area of Debridement (cm) - Length 1.0 -Area of Debridement (cm) - Width 1.0 -Total Square (Area) (cm) 1.00 -Tunneling No -Undermining/Tunneling No -Circular Undermining No -Wound/Ulcer Outcome Not Healed -Ulcer Cleansing Rinsed/ Irrigated with Saline -Foul Odor after Cleansing No -Bioengineered Tissue No -Bleeding Controlled with Pressure -Offloading No -Debridement - Subq, 1st 20sq cm Yes [See Physician Procedure note for Specifics] JOAO - Nurse 3 - General Ulcer D/C NN Start: 01/08/21 09:14 Freq: Status: Active Protocol: Activity Type Activity Date Activity User E-Sign Co-Sign Detail Recorded Client Recorded Date Recorded By Document 01/08/21 10:09 RB [id number] 01/08/21 10:13 RB 01/08/21 10:09 Wound Care Nurse 3 [Wound Dressing] 28. L hand 5th digit dorsal -Other Dressing aquacel extra -Primary Dressing Covered/Secured Dry Gauze,Dry with Gauze & Roll Gauze,Secured with Tape 27. R Heel lateral -Ulcer Cleansing Rinsed/ Irrigated with Saline -Primary Dressing Applied Aquacel Extra -Primary Dressing Covered/Secured Dry Gauze,Dry with Gauze & Roll Gauze,Secured with Tape -Aquacel Extra 3 # 25 left orellana cluster -Other Dressing aquacel extra -Primary Dressing Covered/Secured Dry Gauze,Dry with Gauze & Roll Gauze,Secured with Tape 23-right superior achilles -Ulcer Cleansing Rinsed/ Irrigated with Saline -Other Dressing aquacel extra -Primary Dressing Covered/Secured Dry Gauze,Dry with Gauze & Roll Gauze,Secured with Tape #21 R Med [place] -Ulcer Cleansing Rinsed/ Irrigated with Saline -Other Dressing aquacel extra -Primary Dressing Covered/Secured Dry Gauze,Dry with Gauze & Roll Gauze,Secured with Tape #20 R med orellana sup -Ulcer Cleansing Rinsed/ Irrigated with Saline -Other Dressing aquacel extra -Primary Dressing Covered/Secured Dry Gauze,Dry with Gauze & Roll Gauze,Secured with Tape #26 right great toe -Ulcer Cleansing Rinsed/ Irrigated with Saline -Other Dressing aquacel extra -Primary Dressing Covered/Secured Dry Gauze,Dry with Gauze & Roll Gauze,Secured with Tape #11 RIGHT MEDIAL FOOT -Ulcer Cleansing Rinsed/ Irrigated with Saline -Other Dressing aquacel extra -Primary Dressing Covered/Secured Dry Gauze,Dry with Gauze & Roll Gauze,Secured with Tape #6 POSTERIOR LLE -Ulcer Cleansing Rinsed/ Irrigated with Saline -Other Dressing aquascel extra -Primary Dressing Covered/Secured Dry Gauze,Dry with Gauze & Roll Gauze,Secured with Tape #4 POSTERIOR RLE -Ulcer Cleansing Rinsed/ Irrigated with Saline -Other Dressing aquacel extra -Primary Dressing Covered/Secured Dry Gauze,Dry with Gauze & Roll Gauze,Secured with Tape [Post Procedure Tolerated] -Treatment Response Procedure Tolerated Well - Visit Discharge [Visit Discharge Information] -Discharge Condition Stable -Ambulatory Status Wheelchair -Transportation Private Auto -Medication Reconcilliation completed No & provided to patient/care provider -Clinical Summary of Care Provided Yes Musculoskeletal: No Tenderness to Palpation of Joints or Extremities, Muscle Wasting, - - Right forefoot ray resection remains healed Neurological: - - Lack of normal epicritic sensation to light touch is consistent with his neuropathy status Psych/Mental Status: Normal Affect, Appropriate Debridement Note Post-Debridement Measurements/Treatment WC - Nurse 2 - General Ulcer CM Notes Start: 01/08/21 09:14 Freq: Status: Active Protocol: Activity Type Activity Date Activity User E-Sign Co-Sign Detail Recorded Client Recorded Date Recorded By Document 01/08/21 10:16 MW [id number] 01/08/21 10:25 MW 01/08/21 10:16 Wound Center Nurse 2 28. L hand 5th digit dorsal -Time 10:18 -Correct Patient Yes -Correct Side, Site, Position Yes -Correct Procedure Yes -Procedure Performed Yes -Type of Procedure Debridement -Clinical Debridement Subcutaneous -Tissue Removed Subcutaneous -Post Debridement (cm) - Length 1.0 -Post Debridement (cm) - Width 1.0 -Post Debridement (cm) - Depth 0.3 -Total Square (Post) (cm) 1.00 -Area of Debridement (cm) - Length 1.0 -Area of Debridement (cm) - Width 1.0 -Total Square (Area) (cm) 1.00 -Tunneling No -Undermining/Tunneling No -Circular Undermining No -Wound/Ulcer Outcome Not Healed -Ulcer Cleansing Rinsed/ Irrigated with Saline -Foul Odor after Cleansing No -Bioengineered Tissue No -Bleeding Controlled with Pressure -Offloading No -Debridement - Subq, 1st 20sq cm Yes WC - Nurse 3 - General Ulcer D/C NN Start: 01/08/21 09:14 Freq: Status: Active Protocol: Activity Type Activity Date Activity User E-Sign Co-Sign Detail Recorded Client Recorded Date Recorded By Document 01/08/21 10:09 RB [id number] 01/08/21 10:13 RB 01/08/21 10:09 Wound Care Nurse 3 -Other Dressing aquacel extra -Primary Dressing Covered/Secured with Dry Gauze,Dry Gauze & Roll Gauze,Secured with Tape 27. R Heel lateral -Ulcer Cleansing Rinsed/ Irrigated with Saline -Primary Dressing Applied Aquacel Extra -Primary Dressing Covered/Secured with Dry Gauze,Dry Gauze & Roll Gauze,Secured with Tape -Aquacel Extra 3 # 25 left orellana cluster -Other Dressing aquacel extra -Primary Dressing Covered/Secured with Dry Gauze,Dry Gauze & Roll Gauze,Secured with Tape 23-right superior achilles -Ulcer Cleansing Rinsed/ Irrigated with Saline -Other Dressing aquacel extra -Primary Dressing Covered/Secured with Dry Gauze,Dry Gauze & Roll Gauze,Secured with Tape #21 R Med [place] -Ulcer Cleansing Rinsed/ Irrigated with Saline -Other Dressing aquacel extra -Primary Dressing Covered/Secured with Dry Gauze,Dry Gauze & Roll Gauze,Secured with Tape #20 R med orellana sup -Ulcer Cleansing Rinsed/ Irrigated with Saline -Other Dressing aquacel extra -Primary Dressing Covered/Secured with Dry Gauze,Dry Gauze & Roll Gauze,Secured with Tape #26 right great toe -Ulcer Cleansing Rinsed/ Irrigated with Saline -Other Dressing aquacel extra -Primary Dressing Covered/Secured with Dry Gauze,Dry Gauze & Roll Gauze,Secured with Tape #11 RIGHT MEDIAL FOOT -Ulcer Cleansing Rinsed/ Irrigated with Saline -Other Dressing aquacel extra -Primary Dressing Covered/Secured with Dry Gauze,Dry Gauze & Roll Gauze,Secured with Tape #6 POSTERIOR LLE -Ulcer Cleansing Rinsed/ Irrigated with Saline -Other Dressing aquascel extra -Primary Dressing Covered/Secured with Dry Gauze,Dry Gauze & Roll Gauze,Secured with Tape #4 POSTERIOR RLE -Ulcer Cleansing Rinsed/ Irrigated with Saline -Other Dressing aquacel extra -Primary Dressing Covered/Secured with Dry Gauze,Dry Gauze & Roll Gauze,Secured with Tape Treatment Response Procedure Tolerated Well WC - Visit Discharge Discharge Condition Stable Ambulatory Status Wheelchair Transportation Private Auto Medication Reconcilliation completed & No provided to patient/care provider Clinical Summary of Care Provided Yes Wound debrided: medial forefoot, hallux, anterior leg, posterior leg (superior) Laterality: Right Wound Grade/Stage: grade 1 Type of Debridement: Excisional debridement Anesthesia Used: 5% Lidocaine Gel Depth: in the subcutaneous layer Percentage of wound debrided: 100 Instrument Used: #15 blade Tissue Removed: fibrous, devitalized subcutaneuos, biofilm, slough Severity: Fat Layer Exposed Amount of bleeding with debridement: Mild Bleeding Controlled with: Pressure Patient tolerated procedure well - Additional Wound Wound debrided: plantar midfoot Laterality: Right Wound Grade/Stage: grade 3 Type of Debridement: Excisional debridement Anesthesia Used: 5% Lidocaine Gel Depth: in the subcutaneous layer Percentage of wound debrided: 100 Instrument Used: #15 blade Tissue Removed: fibrous, devitalized subcutaneuos, biofilm, slough Severity: Fat Layer Exposed Amount of bleeding with debridement: Mild Bleeding Controlled with: Pressure Patient tolerated procedure: Patient tolerated procedure well - Additional Wound Wound debrided: posterior leg (ingerior) Laterality: Right Wound Grade/Stage: grade 3 (prior, non infected today) Type of Debridement: Excisional debridement Anesthesia Used: 5% Lidocaine Gel Depth: to muscle Percentage of wound debrided: 100 Instrument Used: #15 blade, Forceps, - - ronguer Tissue Removed: fibrous, devitalized subcutaneuos and tendon/muscle, biofilm, slough Severity: Necrosis of Muscle Amount of bleeding with debridement: Mild Bleeding Controlled with: Pressure Patient tolerated procedure: Patient tolerated procedure well - Additional Wound Wound debrided: posterior leg Laterality: Left Wound Grade/Stage: grade 2 Type of Debridement: Excisional debridement Anesthesia Used: 5% Lidocaine Gel Depth: in the subcutaneous layer Percentage of wound debrided: 100 Instrument Used: #15 blade Tissue Removed: fibrous, devitalized subcutaneuos, biofilm, slough Severity: Fat Layer Exposed Amount of bleeding with debridement: Mild Bleeding Controlled with: Pressure Patient tolerated procedure: Patient tolerated procedure well Assessment/Plan Active Problems (Last Updated 09/28/18 @ 12:41 by Geraldine Steele) Smoker (Chronic) 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 -Lower extremity edema, stable. -Right plantar medial first metatarsal head ulcer, nguyen grade 1, stable. -Right posterior leg ulcer grade 3 (inferior), worse status. -Right osterior leg ulcer grade 3 (superior), stable. -right anterior leg ulcers (medial, superior, anterior, inferior) grade 1, no infection. -right anterior proximal leg ulcer grade 1, healed today. -Left posterior leg ulcer, nguyen grade 2, stable. -Prior status post operating room excisional subcutaneous and tendon debridements to bilateral legs and right foot with additional application of advanced wound healing products to bilateral posterior lower legs--no infection and stable today -improvement noted. 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 -previous bilateral leg fasciotomies and debridements and irrigation performed previously now with right and left leg ulcers with fat and tendon layers exposed. -diabetic neuropathy. -malnutrition suspected. - vasculitis versus necrobiosis lipoidica diabeticorum versus other skin condition. -delayed healing. -gait impairment and fall risk. -other comorbidities. -Continued smoking habits. -new hand ulcers (seen by other wound care center provider) Plan: I reviewed and discussed his case today. Debridement was performed to all sites as noted in the nursing panel in a subcutaneous excisional manner and also excisional tendon manner to the right posterior leg (inferior location). C ompliance was reviewed while he is outside he needs to wear a cam walker to avoid these types of injuries. To change daily Dakin wet-to-dry dressing to bilateral posterior legs and plantar right foot sites and also with Aquacel Ag to all other sites. To wash with Dial soap and water and periodically antimicrobial Puja-Hex soap. He was reassured no local or systemic signs of illness is suspected today. However, exteriorization 3 of the wounds are noted therefore the dressing plan was updated. To continue increased protein intake with nutritional supplementation. To continue glycemic control. He had a previous arterial Doppler performed without vascular surgery intervention recommended. This was over a year ago and I recommend updating noninvasive arterial studies at this time. An order was provided today and prior authorization will be initiated. It is also noted that he did have venous Doppler performed with reflux evaluation. He did not have evidence of deep venous thrombosis or venous insufficiency at that time; the vessels were compressible. I recommend he sustained from smoking and alcohol activities to optimize healing as well. Smoking cessation was encouraged. He elects to proceed with a more palliative care plan and will return to clinic in 2 weeks. It is also noted he was seen by Myrtle Jara, wound center practitioner for hand ulcers. She is initiating an updated vasculitis work-up. Prior workup summary: His workup for vasculitis and underlying autoimmune disorder has been completed. A punch biopsy was sent during his last surgical intervention on June 10 and this demonstrated inflammatory changes without malignancy. He had initial screening labs and so far he has a negative RA titer, HL of the 27, KEVIN, anti-CCP, and rheumatoid factor. Several his antibody screenings were not reportable. Hyperbaric oxygen therapy was recommended and it is noted his ejection fraction was most recently 50%. He refuses at this time. I answered his questions. To return to the wound healing center in 2 week. To call sooner if he has any questions or concerns. Note: [employer] speech recognition photogrammetric technician software was used to create portions of this document. Sound-alike and misspelled words, as well as other photogrammetric technician errors may be contained in the documentation. 24 minutes was spent on this encounter. This included face to face and non face to face care including preparing for the visit, reviewing the history, performing the exam, counseling and providing education to the patient, family, or caregiver, ordering medications/test/ procedures if indicated as documented, communicating with other healthcare providers, documenting information in the medical record, interpreting / sharing this information when indicated as documented, and care coordination. . 2020 Macra. Reviewed today: Medications allergies reviewed and reconciled. Reviewed 01-08-2021: BMI 32.2 this is elevated. To follow-up with primary care physician. Nutrition and to be modifications were reviewed to optimize health and wound healing. His blood pressure was elevated last visit on 12-23-20 at 127/88. To follow-up with primary care physician. He deferred blood pressure check today. It is noted he has fallen more than 2 times within the past year. His gait was assessed that he is unsteady. He was advised to use specific aid form seated exercises to improve stability. He has previously been referred to therapy. He is a current smoker and was advised on smoking cessation for overall health and for ulcer healing. He obtained an influenza vaccination.
--- NOTE | 2021-01-13 13:50 | ART_ITS ---
Reason For Study: Ulcer, PVD Procedure A bilateral lower extremity continuous wave Doppler with analog waveform analysis,segmental pressures,and ankle brachial indexes without exercise. Left Segmental Pressures Left brachial= 133mmHg. Left posterior tibial artery = 117mmHg. Left dorsalis pedis artery = 117mmHg. Right Segmental Pressures Right brachial= 124mmHg. Right dorsalis pedis artery = >254mmHg. Indices Rt DPA is non compressible Unable to obtain Rt TEST AUTOMATION ARCHITECT waveform. The left ankle brachial index by the posterior tibial artery is 0.88. The left ankle brachial index by the dorsalis pedis is 0.88. Interpretation Summary Biphasic Doppler waveforms are noted at ankle level bilaterally. Pulse-volume recording waveform amplitudes are diminished at ankle and digital level bilaterally. The resting right ankle-brachial index could not be determined due to the non-compressibility of the vasculature at ankle level on the right. The resting left ankle-brachial index is mildly diminished. There is evidence of arterial calcification at ankle level on the right. Although the resting ankle- brachial index was not determined on the right, there appears to be evidence of [id number] arterial occlusive disease in the right lower extremity, as well as in the left lower extremity. Clinical correlation is advised. Ordering Physician: Izzy Gruber Referring Physician: Izzy Gruber Performed By: Sherri Faulkner RDANANYA/RVT
--- NOTE | 2021-01-13 14:39 | RAD_ITS ---
STUDY: X-RAY - LEFT HAND, ATTENTION FIFTH FINGER REASON FOR EXAM: Male, 65 years old. Pain and ulcer on left 5th knuckle, pt unable to hold positioning TECHNIQUE: 3 view(s) of the finger were obtained. COMPARISON: None. FINDINGS: Normal metacarpal head. Normal metacarpophalangeal joint. Normal proximal phalanx. Normal middle phalanx. Normal distal phalanx. Normal proximal interphalangeal joint. Normal distal interphalangeal joint. RAD/Finger(s) Min 2 Views IMPRESSION: Normal x-ray examination of the finger. Electronically Signed: Kory Szymanski MD at 16:58 EST , Service support ,
--- NOTE | 2021-01-13 14:42 | RAD_ITS ---
STUDY: X-RAY - LEFT HAND REASON FOR EXAM: Male, 65 years old. Pain and ulcer on left 5th knuckle, pt unable to hold positioning TECHNIQUE: 3 view(s) of the hand. COMPARISON: None. FINDINGS: Normal radiocarpal articulation. Normal distal radioulnar joint. 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 Normal carpal articulations There is degenerative arthrosis of the carpometacarpal (CMC) articulation of the thumb. Normal second through fifth carpometacarpal joints. Normal metacarpi. Normal metacarpophalangeal joint of the thumb. Normal interphalangeal joint of the thumb. Normal proximal and distal phalanges of the thumb. Normal metacarpophalangeal joints of the second through fifth fingers. Mild PIP and DIP joint arthrosis without subchondral erosions. Normal phalanges of the second through fifth fingers. The soft tissue structures are unremarkable. 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
[2021-01-15 10:13] VITALS: BP 129/79; PULSE 103; RESP 18; TEMP 36.2; BMI 32.3
--- NOTE | 2021-01-15 11:11 | PCM.PROGNOTE ---
Patient Problems: Active and Suspected Problems (Last Updated 09/28/18 @ 12:41 by Geraldine Steele) PVD (peripheral vascular disease) (Suspected) - Physical Exam Vitals/I&O's: Vital Signs Temp Pulse Resp BP 97.1 F L 103 H 18 129/79 H 01/15/21 10:13 01/15/21 10:13 01/15/21 10:13 01/15/21 10:13 Oxygen Delivery Method Room Air Weight: 113.819 kg Body Mass Index (BMI) 32.3 Finger Stick Blood Glucose 155 Medical Necessity - Tobacco Use Smoking Status: Current every day smoker Assessment/Plan All Active Problems (Last Updated 09/28/18 @ 12:41 by Geraldine Steele) Blister of right leg (Acute) Fall (Acute) Tear of skin of plantar aspect of right foot (Acute) Ulcer of right foot with fat layer exposed (Acute) Type 2 diabetes mellitus with other skin ulcer (Acute) Non-pressure chronic ulcer of other part of left foot with fat layer exposed (Resolved) Acute kidney failure (Acute) Abscess of right foot (Acute) Osteomyelitis (Resolved) 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) Ulcer of right foot with necrosis of muscle (Resolved)
--- NOTE | 2021-01-15 12:06 | PN.PCM_ITS ---
(1) Open wound of left hand Status: Acute Code(s): S61.402A - Unspecified open wound of left hand, initial encounter (2) Nonhealing nonsurgical wound with fat layer exposed Status: Acute Code(s): T14.8XXA - Other injury of unspecified body region, initial encounter (3) Malnutrition Status: Chronic Code(s): E46 - Unspecified protein-calorie malnutrition (4) Smoker Status: Chronic Code(s): F17.200 - Nicotine dependence, unspecified, uncomplicated (5) Type 2 diabetes mellitus with diabetic polyneuropathy Status: Chronic Code(s): E11.42 - Type 2 diabetes mellitus with diabetic polyneuropathy Type of Wound Date of Service: 01/15/21 Chief Complaint: Left hand open wound fifth phalanx knuckle History of Wound: 5-year-old white male currently being seen by podiatry for his many ulcerations and wounds on his lower extremities. Developed a blister on his left hand fifth knuckle approximately weeks prior to my arrival that opened and now he has a hole over his left little finger knuckle. X-rays are negative lab work still pending for any autoimmune disorder his CRP is extremely high at 47. History of malnutrition history of drinking and smoking excessively. Progress of Wound: deteriorization right posterior leg ulcer and to a lesser extent the plantar right foot and posterior left leg ulcer. Other bilateral leg ulcers and right foot ulcer remains stable - Physical Exam Vital Signs Temp Pulse Resp BP 97.1 F L 103 H 18 129/79 H 01/15/21 10:13 01/15/21 10:13 01/15/21 10:13 01/15/21 10:13 General: Oriented x3, Cooperative, Well developed HEENT: Atraumatic, PERRLA Oral: Moist Mucosa Neck: Supple, No JVD Lungs: Clear to auscultation, Normal air movement Cardiovascular: Regular rate, Regular Rhythm Abdomen: Bowel Sounds Present, Soft, Non Tender, No Hepato-splenomegaly Extremities: No clubbing, No edema Skin: Ulcer/ Wound - Left hand little finger knuckle open tendon visible Wound Measurements and Assessment WC - Nurse 1 - General Ulcer Measurement Start: 01/08/21 09:14 Freq: Status: Active Protocol: Activity Type Activity Date Activity User E-Sign Co-Sign Detail Recorded Client Recorded Date Recorded By Document 01/15/21 10:13 RB [id number] 01/15/21 10:43 RB 01/15/21 10:13 Wound Center Nurse 1 [Ulcer Assessment] 28. L hand 5th digit dorsal -Combined with other wound No -Current Size (cm) - Length 0.9 -Current Size (cm) - Width 0.8 -Current Size (cm) - Depth 0.3 -Total Square Cm 0.72 -Tunneling No -Undermining/Tunneling Yes -Undermining/Tunneling Starts (O' 10 clock) -Undermining/Tunneling Ends (O'clock) 2 -Maximum Distance (cm) 0.2 -Exudate Amt Small -Exudate Type Serosanguineous -Wound Margin Thickened & Rolled Under -Granulation Amt Medium (34-66%) -Granulation Quality [place] -Slough/Fibrin Yes -Necrosis Amt Small (1-33%) -Necrotic Tissue Type Adherent Slough -Structure Exposed N/A -Moisture (Lisa-wound Skin Appearance Dry/Scaly ) -Color (Lisa-wound Skin Appearance) Assessed -Temperature (Lisa-wound Skin No Abnormality Appearance) (Pt Warm) -Tenderness on Palpation (Lisa-wound No Skin Appearance) -Ulcer Cleansing Wound Cleanser -Foul Odor after Cleansing No -Anesthetic Used 4% Lidocaine Solution 27. R Heel lateral -Combined with other wound No -Current Size (cm) - Length 6 -Current Size (cm) - Width 3.5 -Current Size (cm) - Depth 0.4 -Total Square Cm 21.0 -Tunneling No -Undermining/Tunneling No -Circular Undermining No -Exudate Amt Small -Exudate Type Serosanguineous -Wound Margin Thickened -Granulation Amt Small (1-33%) -Granulation Quality [place] -Slough/Fibrin Yes -Necrosis Amt Large (67-100%) -Necrotic Tissue Type Adherent Slough -Structure Exposed N/A -Moisture (Lisa-wound Skin Appearance Dry/Scaly ) -Color (Lisa-wound Skin Appearance) Assessed -Temperature (Lisa-wound Skin No Abnormality Appearance) (Pt Warm) -Tenderness on Palpation (Lisa-wound No Skin Appearance) -Ulcer Cleansing Wound Cleanser -Foul Odor after Cleansing No -Anesthetic Used 4% Lidocaine Solution # 25 left [place] cluster -Current Size (cm) - Length 7.4 -Current Size (cm) - Width 3 -Current Size (cm) - Depth 0.3 -Total Square Cm 22.2 -Tunneling No -Circular Undermining No -Exudate Amt Small -Exudate Type Serosanguineous -Wound Margin Thickened -Granulation Amt Medium (34-66%) -Slough/Fibrin Yes -Necrosis Amt Medium (34-66%) -Necrotic Tissue Type Adherent Slough -Structure Exposed N/A -Texture (Lisa-wound Skin Appearance) Assessed -Moisture (Lisa-wound Skin Appearance Dry/Scaly ) -Color (Lisa-wound Skin Appearance) Assessed -Temperature (Lisa-wound Skin No Abnormality Appearance) (Pt Warm) -Tenderness on Palpation (Lisa-wound No Skin Appearance) -Ulcer Cleansing Wound Cleanser -Anesthetic Used 4% Lidocaine Solution 23-right superior achilles -Current Size (cm) - Length 3.3 -Current Size (cm) - Width 3.9 -Current Size (cm) - Depth 0.3 -Total Square Cm 12.87 -Tunneling No -Circular Undermining No -Exudate Amt Medium -Exudate Type Serosanguineous -Wound Margin Thickened & Rolled Under -Granulation Amt None Present (0 %) -Slough/Fibrin Yes -Necrosis Amt Large (67-100%) -Necrotic Tissue Type Adherent Slough -Structure Exposed Tendon -Texture (Lisa-wound Skin Appearance) Assessed, Scarring -Moisture (Lisa-wound Skin Appearance Dry/Scaly ) -Color (Lisa-wound Skin Appearance) Assessed -Temperature (Lisa-wound Skin No Abnormality Appearance) (Pt Warm) -Tenderness on Palpation (Lisa-wound No Skin Appearance) -Ulcer Cleansing Wound Cleanser -Foul Odor after Cleansing No -Anesthetic Used 4% Lidocaine Solution #21 R Med [place] -Combined with other wound No -Current Size (cm) - Length 0.1 -Current Size (cm) - Width 0.1 -Current Size (cm) - Depth 0.1 -Total Square Cm 0.01 -Tunneling No -Undermining/Tunneling No -Circular Undermining No -Exudate Amt Small -Exudate Type Serosanguineous -Wound Margin Thickened & Rolled Under -Granulation Amt Medium (34-66%) -Granulation Quality [place] -Slough/Fibrin Yes -Necrosis Amt Medium (34-66%) -Necrotic Tissue Type Adherent Slough -Structure Exposed N/A -Texture (Lisa-wound Skin Appearance) Assessed -Moisture (Lisa-wound Skin Appearance Dry/Scaly ) -Color (Lisa-wound Skin Appearance) Assessed -Temperature (Lisa-wound Skin No Abnormality Appearance) (Pt Warm) -Tenderness on Palpation (Lisa-wound No Skin Appearance) -Ulcer Cleansing Wound Cleanser -Foul Odor after Cleansing No -Anesthetic Used 4% Lidocaine Solution #20 R med [place] sup -Current Size (cm) - Length 0.8 -Current Size (cm) - Width 0.5 -Current Size (cm) - Depth 0.1 -Total Square Cm 0.40 -Tunneling No -Undermining/Tunneling No -Circular Undermining No -Exudate Amt Small -Exudate Type Serosanguineous -Wound Margin Thickened -Granulation Amt Medium (34-66%) -Granulation Quality [place] -Slough/Fibrin Yes -Necrosis Amt Small (1-33%) -Necrotic Tissue Type Adherent Slough -Structure Exposed N/A -Texture (Lisa-wound Skin Appearance) Assessed -Moisture (Lisa-wound Skin Appearance Dry/Scaly ) -Color (Lisa-wound Skin Appearance) Assessed -Temperature (Lisa-wound Skin No Abnormality Appearance) (Pt Warm) -Tenderness on Palpation (Lisa-wound No Skin Appearance) -Ulcer Cleansing Wound Cleanser -Foul Odor after Cleansing No -Anesthetic Used 4% Lidocaine Solution #26 right great toe -Current Size (cm) - Length 1.1 -Current Size (cm) - Width 0.5 -Current Size (cm) - Depth 0.1 -Total Square Cm 0.55 -Tunneling No -Undermining/Tunneling No -Circular Undermining No -Exudate Amt Small -Exudate Type Serosanguineous -Wound Margin Thickened -Granulation Amt Medium (34-66%) -Granulation Quality [place] -Slough/Fibrin Yes -Necrosis Amt Small (1-33%) -Necrotic Tissue Type Adherent Slough -Structure Exposed N/A -Texture (Lisa-wound Skin Appearance) Assessed -Moisture (Lisa-wound Skin Appearance Dry/Scaly ) -Color (Lisa-wound Skin Appearance) Assessed -Temperature (Lisa-wound Skin No Abnormality Appearance) (Pt Warm) -Tenderness on Palpation (Lisa-wound No Skin Appearance) -Ulcer Cleansing Wound Cleanser -Foul Odor after Cleansing No -Anesthetic Used 4% Lidocaine Solution #11 RIGHT MEDIAL FOOT -Combined with other wound No -Current Size (cm) - Length 6 -Current Size (cm) - Width 4.8 -Current Size (cm) - Depth 0.3 -Total Square Cm 28.8 -Tunneling No -Undermining/Tunneling No -Circular Undermining No -Exudate Amt Small -Exudate Type Serosanguineous -Wound Margin Thickened & Rolled Under -Granulation Amt Medium (34-66%) -Slough/Fibrin Yes -Necrosis Amt Small (1-33%) -Necrotic Tissue Type Adherent Slough -Structure Exposed N/A -Texture (Lisa-wound Skin Appearance) Assessed -Moisture (Lisa-wound Skin Appearance Assessed,Dry/ ) Scaly -Color (Lisa-wound Skin Appearance) Assessed -Temperature (Lisa-wound Skin No Abnormality Appearance) (Pt Warm) -Tenderness on Palpation (Lisa-wound No Skin Appearance) -Ulcer Cleansing Wound Cleanser -Foul Odor after Cleansing No -Anesthetic Used 4% Lidocaine Solution #6 POSTERIOR LLE -Combined with other wound No -Current Size (cm) - Length 7.7 -Current Size (cm) - Width 2 -Current Size (cm) - Depth 0.9 -Total Square Cm 15.4 -Tunneling No -Undermining/Tunneling No -Circular Undermining No -Exudate Amt Small -Exudate Type Serosanguineous -Wound Margin Thickened & Rolled Under -Granulation Amt Medium (34-66%) -Granulation Quality [place] -Slough/Fibrin Yes -Necrosis Amt Small (1-33%) -Necrotic Tissue Type Adherent Slough -Structure Exposed N/A -Texture (Lisa-wound Skin Appearance) Assessed -Moisture (Lisa-wound Skin Appearance Dry/Scaly ) -Color (Lisa-wound Skin Appearance) Assessed -Temperature (Lisa-wound Skin No Abnormality Appearance) (Pt Warm) -Ulcer Cleansing Wound Cleanser -Foul Odor after Cleansing No -Anesthetic Used 4% Lidocaine Solution #4 POSTERIOR RLE -Current Size (cm) - Length 0.1 -Current Size (cm) - Width 0.1 -Current Size (cm) - Depth 0.1 -Total Square Cm 0.01 -Tunneling No -Undermining/Tunneling No -Circular Undermining No -Exudate Amt Small -Exudate Type Serosanguineous -Wound Margin Thickened -Granulation Amt Medium (34-66%) -Granulation Quality [place] -Slough/Fibrin Yes -Necrosis Amt Medium (34-66%) -Necrotic Tissue Type Adherent Slough -Structure Exposed N/A -Texture (Lisa-wound Skin Appearance) Assessed -Moisture (Lisa-wound Skin Appearance Dry/Scaly ) -Color (Lisa-wound Skin Appearance) Assessed -Temperature (Lisa-wound Skin No Abnormality Appearance) (Pt Warm) -Tenderness on Palpation (Lisa-wound No Skin Appearance) -Ulcer Cleansing Wound Cleanser -Foul Odor after Cleansing No -Anesthetic Used 4% Lidocaine Solution JOAO - Nurse 2 - General Ulcer CM Notes Start: 01/08/21 09:14 Freq: Status: Active Protocol: Activity Type Activity Date Activity User E-Sign Co-Sign Detail Recorded Client Recorded Date Recorded By Document 01/15/21 11:15 MW [id number] 01/15/21 11:18 MW 01/15/21 11:15 Wound Center Nurse 2 [Procedure/Treatment] 28. L hand 5th digit dorsal -Time 11:16 -Correct Patient Yes -Correct Side, Site, Position Yes -Correct Procedure Yes -Procedure Performed Yes -Type of Procedure Debridement -Clinical Debridement Subcutaneous -Tissue Removed Subcutaneous -Post Debridement (cm) - Length 1.0 -Post Debridement (cm) - Width 1.0 -Post Debridement (cm) - Depth 0.3 -Total Square (Post) (cm) 1.00 -Area of Debridement (cm) - Length 1.0 -Area of Debridement (cm) - Width 1.0 -Total Square (Area) (cm) 1.00 -Tunneling No -Undermining/Tunneling No -Circular Undermining No -Wound/Ulcer Outcome Not Healed -Ulcer Cleansing Rinsed/ Irrigated with Saline -Foul Odor after Cleansing No -Bioengineered Tissue No -Bleeding Controlled with Pressure -Offloading No -Debridement - Subq, 1st 20sq cm Yes [See Physician Procedure note for Specifics] JOAO - Nurse 3 - General Ulcer D/C NN Start: 01/08/21 09:14 Freq: Status: Active Protocol: Activity Type Activity Date Activity User E-Sign Co-Sign Detail Recorded Client Recorded Date Recorded By Document 01/15/21 11:29 BM [id number] 01/15/21 11:33 [facility] 01/15/21 11:29 Wound Care Nurse 3 [Wound Dressing] 28. L hand 5th digit dorsal -Ulcer Cleansing Rinsed/ Irrigated with Saline -Foul Odor after Cleansing No -Primary Dressing Applied Aquacel Extra -Primary Dressing Covered/Secured Dry Gauze & with Roll Gauze, Secured with Tape -Other Covering drsgs per r ko rn -Aquacel Extra 1 27. R Heel lateral -Ulcer Cleansing Rinsed/ Irrigated with Saline -Foul Odor after Cleansing No -Primary Dressing Applied Aquacel Extra -Other Dressing all drsgs per r ko rn -Primary Dressing Covered/Secured Dry Gauze & with Roll Gauze, Secured with Tape -Aquacel Extra 0 # 25 left [place] cluster -Ulcer Cleansing Rinsed/ Irrigated with Saline -Foul Odor after Cleansing No -Primary Dressing Applied Aquacel Extra -Aquacel Extra 0 23-right superior achilles -Ulcer Cleansing Rinsed/ Irrigated with Saline -Foul Odor after Cleansing No -Primary Dressing Applied Aquacel Extra -Primary Dressing Covered/Secured Dry Gauze & with Roll Gauze, Secured with Tape -Aquacel Extra 0 #21 R Med [place] -Ulcer Cleansing Rinsed/ Irrigated with Saline -Foul Odor after Cleansing No -Primary Dressing Applied Aquacel Extra -Primary Dressing Covered/Secured Dry Gauze & with Roll Gauze, Secured with Tape -Aquacel Extra 0 #20 R med [place] sup -Ulcer Cleansing Rinsed/ Irrigated with Saline -Primary Dressing Applied Aquacel Extra -Primary Dressing Covered/Secured Dry Gauze & with Roll Gauze, Secured with Tape -Aquacel Extra 0 #26 right great toe -Ulcer Cleansing Rinsed/ Irrigated with Saline -Foul Odor after Cleansing No -Primary Dressing Applied Aquacel Extra -Primary Dressing Covered/Secured Dry Gauze & with Roll Gauze, Secured with Tape -Aquacel Extra 0 #11 RIGHT MEDIAL FOOT -Ulcer Cleansing Rinsed/ Irrigated with Saline -Foul Odor after Cleansing No -Primary Dressing Applied Aquacel Extra -Primary Dressing Covered/Secured Dry Gauze & with Roll Gauze, Secured with Tape -Aquacel Extra 0 #6 POSTERIOR LLE -Ulcer Cleansing Rinsed/ Irrigated with Saline -Foul Odor after Cleansing No -Primary Dressing Applied Aquacel Extra -Primary Dressing Covered/Secured Dry Gauze & with Roll Gauze, Secured with Tape -Aquacel Extra 0 #4 POSTERIOR RLE -Ulcer Cleansing Rinsed/ Irrigated with Saline -Foul Odor after Cleansing No -Primary Dressing Applied Aquacel Extra -Primary Dressing Covered/Secured Dry Gauze & with Roll Gauze, Secured with Tape -Aquacel Extra 0 [Compression Applied] Right -Compression Wrap Joao Wrap Left -Multi-Layered Wrap Application Multi-Layer Comp - Bilat ($ ) -Compression Wrap Joao Wrap [Post Procedure Tolerated] -Treatment Response Procedure Tolerated Well Pain Scale: 0-10 Numeric [Pain] -Is Patient Pain Free? Yes WC - Visit Discharge [Visit Discharge Information] -Discharge Condition Stable -Ambulatory Status Wheelchair -Transportation Private Auto -Accompanied by Musculoskeletal: No Tenderness to Palpation of Joints or Extremities Lymphatic: No Cervical, Supraclavicular, or Inguinal Adenopathy Neurological: Cranial nerves II-XII grossly intact, Neuro grossly intact Psych/Mental Status: Normal Affect, Appropriate Debridement Note Post-Debridement Measurements/Treatment WC - Nurse 2 - General Ulcer CM Notes Start: 01/08/21 09:14 Freq: Status: Active Protocol: Activity Type Activity Date Activity User E-Sign Co-Sign Detail Recorded Client Recorded Date Recorded By Document 01/08/21 10:16 MW [id number] 01/08/21 10:25 MW Document 01/08/21 12:29 PL [id number] 01/08/21 12:43 PL Document 01/15/21 11:15 MW [id number] 01/15/21 11:18 MW 01/08/21 01/08/21 01/15/21 10:16 12:29 11:15 Wound Center Nurse 2 28. L hand 5th digit dorsal -Time 10:18 11:16 -Correct Patient Yes Yes -Correct Side, Site, Position Yes Yes -Correct Procedure Yes Yes -Procedure Performed Yes Yes -Type of Procedure Debridement Debridement -Clinical Debridement Subcutaneous Subcutaneous -Tissue Removed Subcutaneous Subcutaneous -Post Debridement (cm) - Length 1.0 1.0 -Post Debridement (cm) - Width 1.0 1.0 -Post Debridement (cm) - Depth 0.3 0.3 -Total Square (Post) (cm) 1.00 1.00 -Area of Debridement (cm) - Length 1.0 1.0 -Area of Debridement (cm) - Width 1.0 1.0 -Total Square (Area) (cm) 1.00 1.00 -Tunneling No No -Undermining/Tunneling No No -Circular Undermining No No -Wound/Ulcer Outcome Not Healed Not Healed -Ulcer Cleansing Rinsed/ Rinsed/ Irrigated with Irrigated with Saline Saline -Foul Odor after Cleansing No No -Bioengineered Tissue No No -Bleeding Controlled with Pressure Pressure -Offloading No No -Debridement - Subq, 1st 20sq cm Yes Yes 27. R Heel lateral -Time 09:50 -Correct Patient Yes -Correct Side, Site, Position Yes -Correct Procedure Yes -Procedure Performed Yes -Type of Procedure Debridement -Clinical Debridement Subcutaneous -Tissue Removed Subcutaneous -Post Debridement (cm) - Length 0.2 -Post Debridement (cm) - Width 0.2 -Post Debridement (cm) - Depth 0.1 -Total Square (Post) (cm) 0.04 -Area of Debridement (cm) - Length 0.2 -Area of Debridement (cm) - Width 0.2 -Total Square (Area) (cm) 0.04 -Tunneling No -Undermining/Tunneling No -Circular Undermining No -Wound/Ulcer Outcome Not Healed -Ulcer Cleansing Rinsed/ Irrigated with Saline -Foul Odor after Cleansing No -Bioengineered Tissue No -Debridement - Subq, 1st 20sq cm No # 25 left [place] cluster -Time 09:50 -Correct Patient Yes -Correct Side, Site, Position Yes -Correct Procedure Yes -Procedure Performed Yes -Type of Procedure Debridement -Clinical Debridement Muscle / Fascia -Tissue Removed Subcutaneous, Muscle -Post Debridement (cm) - Length 2.7 -Post Debridement (cm) - Width 2.9 -Post Debridement (cm) - Depth 0.3 -Total Square (Post) (cm) 7.83 -Area of Debridement (cm) - Length 2.7 -Area of Debridement (cm) - Width 2.9 -Total Square (Area) (cm) 7.83 -Tunneling No -Undermining/Tunneling No -Circular Undermining No -Wound/Ulcer Outcome Not Healed -Ulcer Cleansing Rinsed/ Irrigated with Saline -Foul Odor after Cleansing No -Bioengineered Tissue No -Debridement - Muscle / Fascia, 1st Yes 20sq cm 23-right superior achilles -Time 09:50 -Correct Patient Yes -Correct Side, Site, Position Yes -Correct Procedure Yes -Procedure Performed Yes -Type of Procedure Debridement -Clinical Debridement Subcutaneous -Tissue Removed Subcutaneous -Post Debridement (cm) - Length 3.1 -Post Debridement (cm) - Width 3.1 -Post Debridement (cm) - Depth 0.3 -Total Square (Post) (cm) 9.61 -Area of Debridement (cm) - Length 3.1 -Area of Debridement (cm) - Width 3.1 -Total Square (Area) (cm) 9.61 -Tunneling No -Undermining/Tunneling No -Circular Undermining No -Wound/Ulcer Outcome Not Healed -Ulcer Cleansing Rinsed/ Irrigated with Saline -Foul Odor after Cleansing No -Bioengineered Tissue No -Debridement - Subq, 1st 20sq cm No #21 R Med [place] -Time 09:50 -Correct Patient Yes -Correct Side, Site, Position Yes -Correct Procedure Yes -Procedure Performed Yes -Type of Procedure Debridement -Clinical Debridement Subcutaneous -Tissue Removed Subcutaneous -Post Debridement (cm) - Length 0.2 -Post Debridement (cm) - Width 0.2 -Post Debridement (cm) - Depth 0.1 -Total Square (Post) (cm) 0.04 -Area of Debridement (cm) - Length 0.2 -Area of Debridement (cm) - Width 0.2 -Total Square (Area) (cm) 0.04 -Tunneling No -Undermining/Tunneling No -Circular Undermining No -Wound/Ulcer Outcome Not Healed -Ulcer Cleansing Rinsed/ Irrigated with Saline -Foul Odor after Cleansing No -Bioengineered Tissue No -Debridement - Subq, 1st 20sq cm No #20 R med [place] sup -Time 09:50 -Correct Patient Yes -Correct Side, Site, Position Yes -Correct Procedure Yes -Procedure Performed Yes -Type of Procedure Debridement -Clinical Debridement Subcutaneous -Tissue Removed Subcutaneous -Post Debridement (cm) - Length 1.1 -Post Debridement (cm) - Width 0.6 -Post Debridement (cm) - Depth 0.2 -Total Square (Post) (cm) 0.66 -Area of Debridement (cm) - Length 1.1 -Area of Debridement (cm) - Width 0.6 -Total Square (Area) (cm) 0.66 -Tunneling No -Undermining/Tunneling No -Circular Undermining No -Wound/Ulcer Outcome Not Healed -Ulcer Cleansing Rinsed/ Irrigated with Saline -Foul Odor after Cleansing No -Bioengineered Tissue No -Debridement - Subq, 1st 20sq cm No #26 right great toe -Time 09:50 -Correct Patient Yes -Correct Side, Site, Position Yes -Correct Procedure Yes -Procedure Performed Yes -Type of Procedure Debridement -Clinical Debridement Subcutaneous -Tissue Removed Subcutaneous -Post Debridement (cm) - Length 1.0 -Post Debridement (cm) - Width 0.5 -Post Debridement (cm) - Depth 0.3 -Total Square (Post) (cm) 0.50 -Area of Debridement (cm) - Length 1.0 -Area of Debridement (cm) - Width 0.5 -Total Square (Area) (cm) 0.50 -Tunneling No -Undermining/Tunneling No -Circular Undermining No -Wound/Ulcer Outcome Not Healed -Ulcer Cleansing Rinsed/ Irrigated with Saline -Foul Odor after Cleansing No -Bioengineered Tissue No -Debridement - Subq, 1st 20sq cm No #11 RIGHT MEDIAL FOOT -Time 09:50 -Correct Patient Yes -Correct Side, Site, Position Yes -Correct Procedure Yes -Procedure Performed Yes -Type of Procedure Debridement -Clinical Debridement Subcutaneous -Tissue Removed Subcutaneous -Post Debridement (cm) - Length 6.4 -Post Debridement (cm) - Width 4.6 -Post Debridement (cm) - Depth 0.4 -Total Square (Post) (cm) 29.44 -Area of Debridement (cm) - Length 6.4 -Area of Debridement (cm) - Width 4.6 -Total Square (Area) (cm) 29.44 -Tunneling No -Undermining/Tunneling No -Circular Undermining No -Wound/Ulcer Outcome Not Healed -Ulcer Cleansing Rinsed/ Irrigated with Saline -Foul Odor after Cleansing No -Bioengineered Tissue No -Debridement - Subq, 1st 20sq cm No #6 POSTERIOR LLE -Time 09:50 -Correct Patient Yes -Correct Side, Site, Position Yes -Correct Procedure Yes -Procedure Performed Yes -Type of Procedure Debridement -Clinical Debridement Subcutaneous -Tissue Removed Subcutaneous -Post Debridement (cm) - Length 7.4 -Post Debridement (cm) - Width 2.1 -Post Debridement (cm) - Depth 0.5 -Total Square (Post) (cm) 15.54 -Area of Debridement (cm) - Length 7.4 -Area of Debridement (cm) - Width 2.1 -Total Square (Area) (cm) 15.54 -Tunneling No -Undermining/Tunneling No -Circular Undermining No -Wound/Ulcer Outcome Not Healed -Ulcer Cleansing Rinsed/ Irrigated with Saline -Foul Odor after Cleansing No -Bioengineered Tissue No -Debridement - Subq, 1st 20sq cm No #4 POSTERIOR RLE -Time 09:50 -Correct Patient Yes -Correct Side, Site, Position Yes -Correct Procedure Yes -Procedure Performed Yes -Type of Procedure Debridement -Clinical Debridement Subcutaneous -Tissue Removed Subcutaneous -Post Debridement (cm) - Length 6.1 -Post Debridement (cm) - Width 3.6 -Post Debridement (cm) - Depth 0.4 -Total Square (Post) (cm) 21.96 -Area of Debridement (cm) - Length 6.1 -Area of Debridement (cm) - Width 3.6 -Total Square (Area) (cm) 21.96 -Tunneling No -Undermining/Tunneling No -Circular Undermining No -Wound/Ulcer Outcome Not Healed -Ulcer Cleansing Rinsed/ Irrigated with Saline -Foul Odor after Cleansing No -Bioengineered Tissue No -Bleeding Controlled with Pressure -Treatment Response Procedure Tolerated Well -Debridement - Subq, 1st 20sq cm Yes -Debridement, SubQ, ea addt'l 20sq cm 4 or part thereof Pain Scale: 0-10 Numeric Is Patient Pain Free? Yes WC - Nurse 3 - General Ulcer D/C NN Start: 01/08/21 09:14 Freq: Status: Active Protocol: Activity Type Activity Date Activity User E-Sign Co-Sign Detail Recorded Client Recorded Date Recorded By Document 01/08/21 10:09 RB [id number] 01/08/21 10:13 RB Document 01/15/21 11:29 [facility] [id number] 01/15/21 11:33 BMF 01/08/21 01/15/21 10:09 11:29 Wound Care Nurse 3 28. L hand 5th digit dorsal -Ulcer Cleansing Rinsed/ Irrigated with Saline -Foul Odor after Cleansing No -Primary Dressing Applied Aquacel Extra -Other Dressing aquacel extra -Primary Dressing Covered/Secured with Dry Gauze,Dry Dry Gauze & Gauze & Roll Roll Gauze, Gauze,Secured Secured with with Tape Tape -Other Covering drsgs per r ko rn -Aquacel Extra 1 27. R Heel lateral -Ulcer Cleansing Rinsed/ Rinsed/ Irrigated with Irrigated with Saline Saline -Foul Odor after Cleansing No -Primary Dressing Applied Aquacel Extra Aquacel Extra -Other Dressing all drsgs per r ko rn -Primary Dressing Covered/Secured with Dry Gauze,Dry Dry Gauze & Gauze & Roll Roll Gauze, Gauze,Secured Secured with with Tape Tape -Aquacel Extra 3 0 # 25 left [place] cluster -Ulcer Cleansing Rinsed/ Irrigated with Saline -Foul Odor after Cleansing No -Primary Dressing Applied Aquacel Extra -Other Dressing aquacel extra -Primary Dressing Covered/Secured with Dry Gauze,Dry Gauze & Roll Gauze,Secured with Tape -Aquacel Extra 0 23-right superior achilles -Ulcer Cleansing Rinsed/ Rinsed/ Irrigated with Irrigated with Saline Saline -Foul Odor after Cleansing No -Primary Dressing Applied Aquacel Extra -Other Dressing aquacel extra -Primary Dressing Covered/Secured with Dry Gauze,Dry Dry Gauze & Gauze & Roll Roll Gauze, Gauze,Secured Secured with with Tape Tape -Aquacel Extra 0 #21 R Med [place] -Ulcer Cleansing Rinsed/ Rinsed/ Irrigated with Irrigated with Saline Saline -Foul Odor after Cleansing No -Primary Dressing Applied Aquacel Extra -Other Dressing aquacel extra -Primary Dressing Covered/Secured with Dry Gauze,Dry Dry Gauze & Gauze & Roll Roll Gauze, Gauze,Secured Secured with with Tape Tape -Aquacel Extra 0 #20 R med [place] sup -Ulcer Cleansing Rinsed/ Rinsed/ Irrigated with Irrigated with Saline Saline -Primary Dressing Applied Aquacel Extra -Other Dressing aquacel extra -Primary Dressing Covered/Secured with Dry Gauze,Dry Dry Gauze & Gauze & Roll Roll Gauze, Gauze,Secured Secured with with Tape Tape -Aquacel Extra 0 #26 right great toe -Ulcer Cleansing Rinsed/ Rinsed/ Irrigated with Irrigated with Saline Saline -Foul Odor after Cleansing No -Primary Dressing Applied Aquacel Extra -Other Dressing aquacel extra -Primary Dressing Covered/Secured with Dry Gauze,Dry Dry Gauze & Gauze & Roll Roll Gauze, Gauze,Secured Secured with with Tape Tape -Aquacel Extra 0 #11 RIGHT MEDIAL FOOT -Ulcer Cleansing Rinsed/ Rinsed/ Irrigated with Irrigated with Saline Saline -Foul Odor after Cleansing No -Primary Dressing Applied Aquacel Extra -Other Dressing aquacel extra -Primary Dressing Covered/Secured with Dry Gauze,Dry Dry Gauze & Gauze & Roll Roll Gauze, Gauze,Secured Secured with with Tape Tape -Aquacel Extra 0 #6 POSTERIOR LLE -Ulcer Cleansing Rinsed/ Rinsed/ Irrigated with Irrigated with Saline Saline -Foul Odor after Cleansing No -Primary Dressing Applied Aquacel Extra -Other Dressing aquascel extra -Primary Dressing Covered/Secured with Dry Gauze,Dry Dry Gauze & Gauze & Roll Roll Gauze, Gauze,Secured Secured with with Tape Tape -Aquacel Extra 0 #4 POSTERIOR RLE -Ulcer Cleansing Rinsed/ Rinsed/ Irrigated with Irrigated with Saline Saline -Foul Odor after Cleansing No -Primary Dressing Applied Aquacel Extra -Other Dressing aquacel extra -Primary Dressing Covered/Secured with Dry Gauze,Dry Dry Gauze & Gauze & Roll Roll Gauze, Gauze,Secured Secured with with Tape Tape -Aquacel Extra 0 Right -Compression Wrap Joao Wrap Left -Multi-Layered Wrap Application Multi-Layer Comp - Bilat ($ ) -Compression Wrap Joao Wrap Treatment Response Procedure Procedure Tolerated Well Tolerated Well Pain Scale: 0-10 Numeric Is Patient Pain Free? Yes WC - Visit Discharge Discharge Condition Stable Stable Ambulatory Status Wheelchair Wheelchair Transportation Private Auto Private Auto Accompanied by Medication Reconcilliation completed & No provided to patient/care provider Clinical Summary of Care Provided Yes Wound debrided: Left hand Type of Debridement: Excisional debridement Anesthesia Used: 5% Lidocaine Gel Depth: Down to and including healthy tissue, to bone Percentage of wound debrided: 100 Instrument Used: 7mm curette Tissue Removed: Fibrin and devitalized tissue Severity: Fat Layer Exposed - Down to bone Amount of bleeding with debridement: Mild Bleeding Controlled with: Compression and gauze Patient tolerated procedure well Assessment/Plan Clinical Impression(s) from Imaging Studies Finger X-Ray 01/13/21 14:39 IMPRESSION: Normal x-ray examination of the finger. 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, and in the PIP and DIP joints No demonstrated acute fracture, old ununited ulnar styloid fracture Electronically Signed: Kory Szymanski MD at 16:57 EST , Service support , Active Problems (Last Updated 09/28/18 @ 12:41 by Geraldine Steele) Smoker (Chronic) Open wound of left hand (Acute) Nonhealing nonsurgical wound with fat layer exposed (Acute) 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 -Open wound left hand at the knuckle. Nonhealing open wound. Long-term anticoagulant therapy. Tobacco abuse Plan: Wash hand with antibacterial soap apply. Aquacel extra to wound base and undermining moistened. Cover with gauze and tape. Applied for epifix. Follow- up in 1 week
[2021-01-15 15:42] LABS: ANTINUCLEAR ANTIBODIES DIRECT Negative (Negative)
--- NOTE | 2021-01-15 22:13 | PN.PCM_ITS ---
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 Code(s): L97.913 - Non-pressure chronic ulcer of unspecified part of right lower leg with necrosis of muscle (2) Ulcer of left lower extremity with fat layer exposed Status: Chronic Code(s): L97.922 - Non-pressure chronic ulcer of unspecified part of left lower leg with fat layer exposed (3) Ulcer of right lower extremity with fat layer exposed Status: Chronic Code(s): L97.912 - Non-pressure chronic ulcer of unspecified part of right lower leg with fat layer exposed (4) Smoker Status: Chronic Code(s): F17.200 - Nicotine dependence, unspecified, uncomplicated (5) Type 2 diabetes mellitus with diabetic polyneuropathy Status: Chronic Code(s): E11.42 - Type 2 diabetes mellitus with diabetic polyneuropathy (6) Chronic kidney disease Status: Chronic Code(s): N18.9 - Chronic kidney disease, unspecified (7) Delayed wound healing Status: Chronic Code(s): T14.8XXD - Other injury of unspecified body region, subsequent encounter (8) NLD (necrobiosis lipoidica diabeticorum) Status: Chronic Code(s): E11.620 - Type 2 diabetes mellitus with diabetic dermatitis Comment: bilateral lower extremities (9) Vasculitis Status: Chronic Code(s): I77.6 - Arteritis, unspecified (10) PVD (peripheral vascular disease) Status: Chronic Code(s): I73.9 - Peripheral vascular disease, unspecified (11) Localized edema Status: Chronic Code(s): R60.0 - Localized edema (12) Malnutrition Status: Chronic Code(s): E46 - Unspecified protein-calorie malnutrition Type of Wound Date of Service: 01/15/21 Chief Complaint: Left hand open wound fifth phalanx knuckle History of Wound: Mr. Arguello is a 65-year-old male with multiple comorbidities follows up for delayed healing ulcers to the right foot as well as bilateral legs. He denies chills, fever, nausea, or vomiting. He denies odor. He has been changing his dressings with Dakin's solution and has decreased drainage compared to last week. He denies pain. He is with his today. He continues to smoke about 10 or more cigarettes daily. He reports increased bilateral leg discomfort at rest. He had his noninvasive vascular studies completed and would like to go over the results today. Progress of Wound: deteriorization right posterior leg ulcer and to a lesser extent the plantar right foot and posterior left leg ulcer. Other bilateral leg ulcers and right foot ulcer remains stable - Physical Exam Vital Signs Temp Pulse Resp BP 97.1 F L 103 H 18 129/79 H 01/15/21 10:13 01/15/21 10:13 01/15/21 10:13 01/15/21 10:13 General: Alert, Oriented x3, Cooperative, No apparent distress HEENT: Atraumatic Extremities: No cyanosis, Capillary Refill Less than 3 Seconds, No Calf Tenderness, Diminished Peripheral Pulses, Edema - Very mild bilateral lower extremities Skin: Ulcer/ Wound - No purulence, erythema, streaking, odor bilateral. Skin is atrophic and hairless. There is continued anteriorization and devitalized Achilles tendon exposed in the posterior superior ulcer site. There is continued delayed healing and additional drainage noted to the plantar right foot ulcer site., - - The underlying ulcer sites have pale granular base with some fibrous tissue. The medial lower right leg ulcer site has healed with full epithelialization Wound Measurements and Assessment WC - Nurse 1 - General Ulcer Measurement Start: 01/08/21 09:14 Freq: Status: Active Protocol: Activity Type Activity Date Activity User E-Sign Co-Sign Detail Recorded Client Recorded Date Recorded By Document 01/15/21 10:13 [id number] 01/15/21 10:43 RB 01/15/21 10:13 Wound Center Nurse 1 [Ulcer Assessment] 28. L hand 5th digit dorsal -Combined with other wound No -Current Size (cm) - Length 0.9 -Current Size (cm) - Width 0.8 -Current Size (cm) - Depth 0.3 -Total Square Cm 0.72 -Tunneling No -Undermining/Tunneling Yes -Undermining/Tunneling Starts (O' 10 clock) -Undermining/Tunneling Ends (O'clock) 2 -Maximum Distance (cm) 0.2 -Exudate Amt Small -Exudate Type Serosanguineous -Wound Margin Thickened & Rolled Under -Granulation Amt Medium (34-66%) -Granulation Quality [place] -Slough/Fibrin Yes -Necrosis Amt Small (1-33%) -Necrotic Tissue Type Adherent Slough -Structure Exposed N/A -Moisture (Lisa-wound Skin Appearance Dry/Scaly ) -Color (Lisa-wound Skin Appearance) Assessed -Temperature (Lisa-wound Skin No Abnormality Appearance) (Pt Warm) -Tenderness on Palpation (Lisa-wound No Skin Appearance) -Ulcer Cleansing Wound Cleanser -Foul Odor after Cleansing No -Anesthetic Used 4% Lidocaine Solution 27. R Heel lateral -Combined with other wound No -Current Size (cm) - Length 6 -Current Size (cm) - Width 3.5 -Current Size (cm) - Depth 0.4 -Total Square Cm 21.0 -Tunneling No -Undermining/Tunneling No -Circular Undermining No -Exudate Amt Small -Exudate Type Serosanguineous -Wound Margin Thickened -Granulation Amt Small (1-33%) -Granulation Quality [place] -Slough/Fibrin Yes -Necrosis Amt Large (67-100%) -Necrotic Tissue Type Adherent Slough -Structure Exposed N/A -Moisture (Lisa-wound Skin Appearance Dry/Scaly ) -Color (Lisa-wound Skin Appearance) Assessed -Temperature (Lisa-wound Skin No Abnormality Appearance) (Pt Warm) -Tenderness on Palpation (Lisa-wound No Skin Appearance) -Ulcer Cleansing Wound Cleanser -Foul Odor after Cleansing No -Anesthetic Used 4% Lidocaine Solution # 25 left orellana cluster -Current Size (cm) - Length 7.4 -Current Size (cm) - Width 3 -Current Size (cm) - Depth 0.3 -Total Square Cm 22.2 -Tunneling No -Circular Undermining No -Exudate Amt Small -Exudate Type Serosanguineous -Wound Margin Thickened -Granulation Amt Medium (34-66%) -Slough/Fibrin Yes -Necrosis Amt Medium (34-66%) -Necrotic Tissue Type Adherent Slough -Structure Exposed N/A -Texture (Lisa-wound Skin Appearance) Assessed -Moisture (Lisa-wound Skin Appearance Dry/Scaly ) -Color (Lisa-wound Skin Appearance) Assessed -Temperature (Lisa-wound Skin No Abnormality Appearance) (Pt Warm) -Tenderness on Palpation (Lisa-wound No Skin Appearance) -Ulcer Cleansing Wound Cleanser -Anesthetic Used 4% Lidocaine Solution 23-right superior achilles -Current Size (cm) - Length 3.3 -Current Size (cm) - Width 3.9 -Current Size (cm) - Depth 0.3 -Total Square Cm 12.87 -Tunneling No -Circular Undermining No -Exudate Amt Medium -Exudate Type Serosanguineous -Wound Margin Thickened & Rolled Under -Granulation Amt None Present (0 %) -Slough/Fibrin Yes -Necrosis Amt Large (67-100%) -Necrotic Tissue Type Adherent Slough -Structure Exposed Tendon -Texture (Lisa-wound Skin Appearance) Assessed, Scarring -Moisture (Lisa-wound Skin Appearance Dry/Scaly ) -Color (Lisa-wound Skin Appearance) Assessed -Temperature (Lisa-wound Skin No Abnormality Appearance) (Pt Warm) -Tenderness on Palpation (Lisa-wound No Skin Appearance) -Ulcer Cleansing Wound Cleanser -Foul Odor after Cleansing No -Anesthetic Used 4% Lidocaine Solution #21 R Med [place] -Combined with other wound No -Current Size (cm) - Length 0.1 -Current Size (cm) - Width 0.1 -Current Size (cm) - Depth 0.1 -Total Square Cm 0.01 -Tunneling No -Undermining/Tunneling No -Circular Undermining No -Exudate Amt Small -Exudate Type Serosanguineous -Wound Margin Thickened & Rolled Under -Granulation Amt Medium (34-66%) -Granulation Quality [place] -Slough/Fibrin Yes -Necrosis Amt Medium (34-66%) -Necrotic Tissue Type Adherent Slough -Structure Exposed N/A -Texture (Lisa-wound Skin Appearance) Assessed -Moisture (Lisa-wound Skin Appearance Dry/Scaly ) -Color (Lisa-wound Skin Appearance) Assessed -Temperature (Lisa-wound Skin No Abnormality Appearance) (Pt Warm) -Tenderness on Palpation (Lisa-wound No Skin Appearance) -Ulcer Cleansing Wound Cleanser -Foul Odor after Cleansing No -Anesthetic Used 4% Lidocaine Solution #20 R med orellana sup -Current Size (cm) - Length 0.8 -Current Size (cm) - Width 0.5 -Current Size (cm) - Depth 0.1 -Total Square Cm 0.40 -Tunneling No -Undermining/Tunneling No -Circular Undermining No -Exudate Amt Small -Exudate Type Serosanguineous -Wound Margin Thickened -Granulation Amt Medium (34-66%) -Granulation Quality [place] -Slough/Fibrin Yes -Necrosis Amt Small (1-33%) -Necrotic Tissue Type Adherent Slough -Structure Exposed N/A -Texture (Lisa-wound Skin Appearance) Assessed -Moisture (Lisa-wound Skin Appearance Dry/Scaly ) -Color (Lisa-wound Skin Appearance) Assessed -Temperature (Lisa-wound Skin No Abnormality Appearance) (Pt Warm) -Tenderness on Palpation (Lisa-wound No Skin Appearance) -Ulcer Cleansing Wound Cleanser -Foul Odor after Cleansing No -Anesthetic Used 4% Lidocaine Solution #26 right great toe -Current Size (cm) - Length 1.1 -Current Size (cm) - Width 0.5 -Current Size (cm) - Depth 0.1 -Total Square Cm 0.55 -Tunneling No -Undermining/Tunneling No -Circular Undermining No -Exudate Amt Small -Exudate Type Serosanguineous -Wound Margin Thickened -Granulation Amt Medium (34-66%) -Granulation Quality [place] -Slough/Fibrin Yes -Necrosis Amt Small (1-33%) -Necrotic Tissue Type Adherent Slough -Structure Exposed N/A -Texture (Lisa-wound Skin Appearance) Assessed -Moisture (Lisa-wound Skin Appearance Dry/Scaly ) -Color (Lisa-wound Skin Appearance) Assessed -Temperature (Lisa-wound Skin No Abnormality Appearance) (Pt Warm) -Tenderness on Palpation (Lisa-wound No Skin Appearance) -Ulcer Cleansing Wound Cleanser -Foul Odor after Cleansing No -Anesthetic Used 4% Lidocaine Solution #11 RIGHT MEDIAL FOOT -Combined with other wound No -Current Size (cm) - Length 6 -Current Size (cm) - Width 4.8 -Current Size (cm) - Depth 0.3 -Total Square Cm 28.8 -Tunneling No -Undermining/Tunneling No -Circular Undermining No -Exudate Amt Small -Exudate Type Serosanguineous -Wound Margin Thickened & Rolled Under -Granulation Amt Medium (34-66%) -Slough/Fibrin Yes -Necrosis Amt Small (1-33%) -Necrotic Tissue Type Adherent Slough -Structure Exposed N/A -Texture (Lisa-wound Skin Appearance) Assessed -Moisture (Lisa-wound Skin Appearance Assessed,Dry/ ) Scaly -Color (Lisa-wound Skin Appearance) Assessed -Temperature (Lisa-wound Skin No Abnormality Appearance) (Pt Warm) -Tenderness on Palpation (Lisa-wound No Skin Appearance) -Ulcer Cleansing Wound Cleanser -Foul Odor after Cleansing No -Anesthetic Used 4% Lidocaine Solution #6 POSTERIOR LLE -Combined with other wound No -Current Size (cm) - Length 7.7 -Current Size (cm) - Width 2 -Current Size (cm) - Depth 0.9 -Total Square Cm 15.4 -Tunneling No -Undermining/Tunneling No -Circular Undermining No -Exudate Amt Small -Exudate Type Serosanguineous -Wound Margin Thickened & Rolled Under -Granulation Amt Medium (34-66%) -Granulation Quality [place] -Slough/Fibrin Yes -Necrosis Amt Small (1-33%) -Necrotic Tissue Type Adherent Slough -Structure Exposed N/A -Texture (Lisa-wound Skin Appearance) Assessed -Moisture (Lisa-wound Skin Appearance Dry/Scaly ) -Color (Lisa-wound Skin Appearance) Assessed -Temperature (Lisa-wound Skin No Abnormality Appearance) (Pt Warm) -Ulcer Cleansing Wound Cleanser -Foul Odor after Cleansing No -Anesthetic Used 4% Lidocaine Solution #4 POSTERIOR RLE -Current Size (cm) - Length 0.1 -Current Size (cm) - Width 0.1 -Current Size (cm) - Depth 0.1 -Total Square Cm 0.01 -Tunneling No -Undermining/Tunneling No -Circular Undermining No -Exudate Amt Small -Exudate Type Serosanguineous -Wound Margin Thickened -Granulation Amt Medium (34-66%) -Granulation Quality [place] -Slough/Fibrin Yes -Necrosis Amt Medium (34-66%) -Necrotic Tissue Type Adherent Slough -Structure Exposed N/A -Texture (Lisa-wound Skin Appearance) Assessed -Moisture (Lisa-wound Skin Appearance Dry/Scaly ) -Color (Lisa-wound Skin Appearance) Assessed -Temperature (Lisa-wound Skin No Abnormality Appearance) (Pt Warm) -Tenderness on Palpation (Lisa-wound No Skin Appearance) -Ulcer Cleansing Wound Cleanser -Foul Odor after Cleansing No -Anesthetic Used 4% Lidocaine Solution WC - Nurse 2 - General Ulcer CM Notes Start: 01/08/21 09:14 Freq: Status: Active Protocol: Activity Type Activity Date Activity User E-Sign Co-Sign Detail Recorded Client Recorded Date Recorded By Document 01/15/21 11:15 MW [id number] 02/24/21 11:18 MW Document 01/15/21 11:56 [id number] 01/15/21 12:19 JF 01/15/21 01/15/21 11:15 11:56 Wound Center Nurse 2 [Procedure/Treatment] 28. L hand 5th digit dorsal -Time 11:16 -Correct Patient Yes -Correct Side, Site, Position Yes -Correct Procedure Yes -Procedure Performed Yes -Type of Procedure Debridement -Clinical Debridement Subcutaneous -Tissue Removed Subcutaneous -Post Debridement (cm) - Length 1.0 -Post Debridement (cm) - Width 1.0 -Post Debridement (cm) - Depth 0.3 -Total Square (Post) (cm) 1.00 -Area of Debridement (cm) - Length 1.0 -Area of Debridement (cm) - Width 1.0 -Total Square (Area) (cm) 1.00 -Tunneling No -Undermining/Tunneling No -Circular Undermining No -Wound/Ulcer Outcome Not Healed -Ulcer Cleansing Rinsed/ Irrigated with Saline -Foul Odor after Cleansing No -Bioengineered Tissue No -Bleeding Controlled with Pressure -Offloading No -Debridement - Subq, 1st 20sq cm Yes 27. R Heel lateral -Time 11:59 -Correct Patient Yes -Correct Side, Site, Position Yes -Correct Procedure Yes -Procedure Performed Yes -Type of Procedure Debridement -Clinical Debridement Subcutaneous -Tissue Removed Subcutaneous -Post Debridement (cm) - Length 6 -Post Debridement (cm) - Width 3.5 -Post Debridement (cm) - Depth 0.4 -Total Square (Post) (cm) 21.0 -Area of Debridement (cm) - Length 6 -Area of Debridement (cm) - Width 3.5 -Total Square (Area) (cm) 21.0 -Tunneling No -Undermining/Tunneling No -Circular Undermining No -Wound/Ulcer Outcome Not Healed -Ulcer Cleansing Rinsed/ Irrigated with Saline -Foul Odor after Cleansing No -Bioengineered Tissue No -Bleeding Controlled with Pressure -Offloading No -Treatment Response Procedure Tolerated Well -Debridement - Subq, 1st 20sq cm Yes -Debridement, SubQ, ea addt'l 20sq cm 4 or part thereof # 25 left orellana cluster -Time 12:01 -Correct Patient Yes -Correct Side, Site, Position Yes -Correct Procedure Yes -Procedure Performed Yes -Type of Procedure Debridement -Clinical Debridement Subcutaneous -Tissue Removed Subcutaneous -Post Debridement (cm) - Length 7.5 -Post Debridement (cm) - Width 3 -Post Debridement (cm) - Depth 0.3 -Total Square (Post) (cm) 22.5 -Area of Debridement (cm) - Length 7.5 -Area of Debridement (cm) - Width 3 -Total Square (Area) (cm) 22.5 -Tunneling No -Undermining/Tunneling No -Circular Undermining No -Wound/Ulcer Outcome Not Healed -Ulcer Cleansing Rinsed/ Irrigated with Saline -Foul Odor after Cleansing No -Bioengineered Tissue No -Bleeding Controlled with Pressure -Offloading No -Treatment Response Procedure Tolerated Well -Debridement - Subq, 1st 20sq cm No 23-right superior achilles -Time 12:01 -Correct Patient Yes -Correct Side, Site, Position Yes -Correct Procedure Yes -Procedure Performed Yes -Type of Procedure Debridement -Clinical Debridement Muscle / Fascia -Tissue Removed Muscle,Fascia -Post Debridement (cm) - Length 3.3 -Post Debridement (cm) - Width 4 -Post Debridement (cm) - Depth 0.3 -Total Square (Post) (cm) 13.2 -Area of Debridement (cm) - Length 3.3 -Area of Debridement (cm) - Width 4 -Total Square (Area) (cm) 13.2 -Tunneling No -Undermining/Tunneling No -Circular Undermining No -Wound/Ulcer Outcome Not Healed -Ulcer Cleansing Rinsed/ Irrigated with Saline -Foul Odor after Cleansing No -Bioengineered Tissue No -Bleeding Controlled with Pressure -Offloading No -Treatment Response Procedure Tolerated Well -Debridement - Muscle / Fascia, 1st Yes 20sq cm #21 R Med [place] -Correct Patient No -Correct Side, Site, Position No -Correct Procedure No -Procedure Performed No -Post Debridement (cm) - Length 0 -Post Debridement (cm) - Width 0 -Post Debridement (cm) - Depth 0 -Total Square (Post) (cm) 0 -Area of Debridement (cm) - Length 0 -Area of Debridement (cm) - Width 0 -Total Square (Area) (cm) 0 -Wound/Ulcer Outcome Healed- Epithelialized #20 R med orellana sup -Time 12:03 -Correct Patient Yes -Correct Side, Site, Position Yes -Correct Procedure Yes -Procedure Performed Yes -Type of Procedure Debridement -Clinical Debridement Subcutaneous -Tissue Removed Subcutaneous -Post Debridement (cm) - Length 0.9 -Post Debridement (cm) - Width 0.5 -Post Debridement (cm) - Depth 0.1 -Total Square (Post) (cm) 0.45 -Area of Debridement (cm) - Length 0.9 -Area of Debridement (cm) - Width 0.5 -Total Square (Area) (cm) 0.45 -Tunneling No -Undermining/Tunneling No -Circular Undermining No -Wound/Ulcer Outcome Not Healed -Ulcer Cleansing Rinsed/ Irrigated with Saline -Foul Odor after Cleansing No -Bioengineered Tissue No -Bleeding Controlled with Pressure -Offloading No -Treatment Response Procedure Tolerated Well -Debridement - Subq, 1st 20sq cm No #26 right great toe -Time 12:07 -Correct Patient Yes -Correct Side, Site, Position Yes -Correct Procedure Yes -Procedure Performed Yes -Type of Procedure Debridement -Clinical Debridement Subcutaneous -Tissue Removed Subcutaneous -Post Debridement (cm) - Length 1.2 -Post Debridement (cm) - Width 1 -Post Debridement (cm) - Depth 0.1 -Total Square (Post) (cm) 1.2 -Area of Debridement (cm) - Length 1.2 -Area of Debridement (cm) - Width 1 -Total Square (Area) (cm) 1.2 -Tunneling No -Undermining/Tunneling No -Circular Undermining No -Wound/Ulcer Outcome Not Healed -Ulcer Cleansing Rinsed/ Irrigated with Saline -Foul Odor after Cleansing No -Bioengineered Tissue No -Bleeding Controlled with Pressure -Offloading No -Treatment Response Procedure Tolerated Well -Debridement - Subq, 1st 20sq cm No #11 RIGHT MEDIAL FOOT -Time 12:11 -Correct Patient Yes -Correct Side, Site, Position Yes -Correct Procedure Yes -Procedure Performed Yes -Type of Procedure Debridement -Clinical Debridement Subcutaneous -Tissue Removed Subcutaneous -Post Debridement (cm) - Length 6 -Post Debridement (cm) - Width 4.9 -Post Debridement (cm) - Depth 0.3 -Total Square (Post) (cm) 29.4 -Area of Debridement (cm) - Length 6 -Area of Debridement (cm) - Width 4.9 -Total Square (Area) (cm) 29.4 -Tunneling No -Undermining/Tunneling No -Circular Undermining No -Wound/Ulcer Outcome Not Healed -Ulcer Cleansing Rinsed/ Irrigated with Saline -Foul Odor after Cleansing No -Bioengineered Tissue No -Bleeding Controlled with Pressure -Offloading No -Treatment Response Procedure Tolerated Well -Debridement - Subq, 1st 20sq cm No #6 POSTERIOR LLE -Time 12:12 -Correct Patient Yes -Correct Side, Site, Position Yes -Correct Procedure Yes -Procedure Performed Yes -Type of Procedure Debridement -Clinical Debridement Subcutaneous -Tissue Removed Subcutaneous -Post Debridement (cm) - Length 7.8 -Post Debridement (cm) - Width 2 -Post Debridement (cm) - Depth 1 -Total Square (Post) (cm) 15.6 -Area of Debridement (cm) - Length 7.8 -Area of Debridement (cm) - Width 2 -Total Square (Area) (cm) 15.6 -Tunneling No -Undermining/Tunneling No -Circular Undermining No -Wound/Ulcer Outcome Not Healed -Ulcer Cleansing Rinsed/ Irrigated with Saline -Foul Odor after Cleansing No -Bioengineered Tissue No -Bleeding Controlled with Pressure -Offloading No -Treatment Response Procedure Tolerated Well -Debridement - Subq, 1st 20sq cm No #4 POSTERIOR RLE -Time 12:13 -Correct Patient Yes -Correct Side, Site, Position Yes -Correct Procedure Yes -Procedure Performed Yes -Type of Procedure Debridement -Clinical Debridement Subcutaneous -Tissue Removed Subcutaneous -Post Debridement (cm) - Length 0.2 -Post Debridement (cm) - Width 0.2 -Post Debridement (cm) - Depth 0.2 -Total Square (Post) (cm) 0.04 -Area of Debridement (cm) - Length 0.2 -Area of Debridement (cm) - Width 0.2 -Total Square (Area) (cm) 0.04 -Tunneling No -Undermining/Tunneling No -Circular Undermining No -Wound/Ulcer Outcome Not Healed -Ulcer Cleansing Rinsed/ Irrigated with Saline -Foul Odor after Cleansing No -Bioengineered Tissue No -Bleeding Controlled with Pressure -Offloading No -Treatment Response Procedure Tolerated Well -Debridement - Subq, 1st 20sq cm No [See Physician Procedure note for Specifics] Pain Scale: 0-10 Numeric [Pain] -Is Patient Pain Free? Yes WC - Nurse 3 - General Ulcer D/C NN Start: 01/08/21 09:14 Freq: Status: Active Protocol: Activity Type Activity Date Activity User E-Sign Co-Sign Detail Recorded Client Recorded Date Recorded By Document 01/15/21 11:29 [facility] [id number] 01/15/21 11:33 [facility] 01/15/21 11:29 Wound Care Nurse 3 [Wound Dressing] 28. L hand 5th digit dorsal -Ulcer Cleansing Rinsed/ Irrigated with Saline -Foul Odor after Cleansing No -Primary Dressing Applied Aquacel Extra -Primary Dressing Covered/Secured Dry Gauze & with Roll Gauze, Secured with Tape -Other Covering drsgs per denae connell rn -Aquacel Extra 1 27. R Heel lateral -Ulcer Cleansing Rinsed/ Irrigated with Saline -Foul Odor after Cleansing No -Primary Dressing Applied Aquacel Extra -Other Dressing all drsgs per denae connell rn -Primary Dressing Covered/Secured Dry Gauze & with Roll Gauze, Secured with Tape -Aquacel Extra 0 # 25 left [place] cluster -Ulcer Cleansing Rinsed/ Irrigated with Saline -Foul Odor after Cleansing No -Primary Dressing Applied Aquacel Extra -Aquacel Extra 0 23-right superior achilles -Ulcer Cleansing Rinsed/ Irrigated with Saline -Foul Odor after Cleansing No -Primary Dressing Applied Aquacel Extra -Primary Dressing Covered/Secured Dry Gauze & with Roll Gauze, Secured with Tape -Aquacel Extra 0 #21 R Med [place] -Ulcer Cleansing Rinsed/ Irrigated with Saline -Foul Odor after Cleansing No -Primary Dressing Applied Aquacel Extra -Primary Dressing Covered/Secured Dry Gauze & with Roll Gauze, Secured with Tape -Aquacel Extra 0 #20 R med orellana sup -Ulcer Cleansing Rinsed/ Irrigated with Saline -Primary Dressing Applied Aquacel Extra -Primary Dressing Covered/Secured Dry Gauze & with Roll Gauze, Secured with Tape -Aquacel Extra 0 #26 right great toe -Ulcer Cleansing Rinsed/ Irrigated with Saline -Foul Odor after Cleansing No -Primary Dressing Applied Aquacel Extra -Primary Dressing Covered/Secured Dry Gauze & with Roll Gauze, Secured with Tape -Aquacel Extra 0 #11 RIGHT MEDIAL FOOT -Ulcer Cleansing Rinsed/ Irrigated with Saline -Foul Odor after Cleansing No -Primary Dressing Applied Aquacel Extra -Primary Dressing Covered/Secured Dry Gauze & with Roll Gauze, Secured with Tape -Aquacel Extra 0 #6 POSTERIOR LLE -Ulcer Cleansing Rinsed/ Irrigated with Saline -Foul Odor after Cleansing No -Primary Dressing Applied Aquacel Extra -Primary Dressing Covered/Secured Dry Gauze & with Roll Gauze, Secured with Tape -Aquacel Extra 0 #4 POSTERIOR RLE -Ulcer Cleansing Rinsed/ Irrigated with Saline -Foul Odor after Cleansing No -Primary Dressing Applied Aquacel Extra -Primary Dressing Covered/Secured Dry Gauze & with Roll Gauze, Secured with Tape -Aquacel Extra 0 [Compression Applied] Right -Compression Wrap Joao Wrap Left -Multi-Layered Wrap Application Multi-Layer Comp - Bilat ($ ) -Compression Wrap Joao Wrap [Post Procedure Tolerated] -Treatment Response Procedure Tolerated Well Pain Scale: 0-10 Numeric [Pain] -Is Patient Pain Free? Yes WC - Visit Discharge [Visit Discharge Information] -Discharge Condition Stable -Ambulatory Status Wheelchair -Transportation Private Auto -Accompanied by Musculoskeletal: No Tenderness to Palpation of Joints or Extremities, Muscle Wasting, - - Compartments remain soft to touch bilateral lower extremities Neurological: - - Lack of normal epicritic sensation light touch is consistent with neuropathy status Psych/Mental Status: Normal Affect, Appropriate Debridement Note Post-Debridement Measurements/Treatment WC - Nurse 2 - General Ulcer CM Notes Start: 01/08/21 09:14 Freq: Status: Active Protocol: Activity Type Activity Date Activity User E-Sign Co-Sign Detail Recorded Client Recorded Date Recorded By Document 01/08/21 10:16 MW [id number] 01/08/21 10:25 MW Document 01/08/21 12:29 PL [id number] 01/08/21 12:43 PL Document 01/15/21 11:15 MW [id number] 01/15/21 11:18 MW Document 01/15/21 11:56 JF [id number] 01/15/21 12:19 JF 01/08/21 01/08/21 01/15/21 10:16 12:29 11:15 Wound Center Nurse 2 28. L hand 5th digit dorsal -Time 10:18 11:16 -Correct Patient Yes Yes -Correct Side, Site, Position Yes Yes -Correct Procedure Yes Yes -Procedure Performed Yes Yes -Type of Procedure Debridement Debridement -Clinical Debridement Subcutaneous Subcutaneous -Tissue Removed Subcutaneous Subcutaneous -Post Debridement (cm) - Length 1.0 1.0 -Post Debridement (cm) - Width 1.0 1.0 -Post Debridement (cm) - Depth 0.3 0.3 -Total Square (Post) (cm) 1.00 1.00 -Area of Debridement (cm) - Length 1.0 1.0 -Area of Debridement (cm) - Width 1.0 1.0 -Total Square (Area) (cm) 1.00 1.00 -Tunneling No No -Undermining/Tunneling No No -Circular Undermining No No -Wound/Ulcer Outcome Not Healed Not Healed -Ulcer Cleansing Rinsed/ Rinsed/ Irrigated with Irrigated with Saline Saline -Foul Odor after Cleansing No No -Bioengineered Tissue No No -Bleeding Controlled with Pressure Pressure -Offloading No No -Debridement - Subq, 1st 20sq cm Yes Yes 27. R Heel lateral -Time 09:50 -Correct Patient Yes -Correct Side, Site, Position Yes -Correct Procedure Yes -Procedure Performed Yes -Type of Procedure Debridement -Clinical Debridement Subcutaneous -Tissue Removed Subcutaneous -Post Debridement (cm) - Length 0.2 -Post Debridement (cm) - Width 0.2 -Post Debridement (cm) - Depth 0.1 -Total Square (Post) (cm) 0.04 -Area of Debridement (cm) - Length 0.2 -Area of Debridement (cm) - Width 0.2 -Total Square (Area) (cm) 0.04 -Tunneling No -Undermining/Tunneling No -Circular Undermining No -Wound/Ulcer Outcome Not Healed -Ulcer Cleansing Rinsed/ Irrigated with Saline -Foul Odor after Cleansing No -Bioengineered Tissue No -Bleeding Controlled with -Offloading -Treatment Response -Debridement - Subq, 1st 20sq cm No -Debridement, SubQ, ea addt'l 20sq cm or part thereof # 25 left orellana cluster -Time 09:50 -Correct Patient Yes -Correct Side, Site, Position Yes -Correct Procedure Yes -Procedure Performed Yes -Type of Procedure Debridement -Clinical Debridement Muscle / Fascia -Tissue Removed Subcutaneous, Muscle -Post Debridement (cm) - Length 2.7 -Post Debridement (cm) - Width 2.9 -Post Debridement (cm) - Depth 0.3 -Total Square (Post) (cm) 7.83 -Area of Debridement (cm) - Length 2.7 -Area of Debridement (cm) - Width 2.9 -Total Square (Area) (cm) 7.83 -Tunneling No -Undermining/Tunneling No -Circular Undermining No -Wound/Ulcer Outcome Not Healed -Ulcer Cleansing Rinsed/ Irrigated with Saline -Foul Odor after Cleansing No -Bioengineered Tissue No -Bleeding Controlled with -Offloading -Treatment Response -Debridement - Subq, 1st 20sq cm -Debridement - Muscle / Fascia, 1st Yes 20sq cm 23-right superior achilles -Time 09:50 -Correct Patient Yes -Correct Side, Site, Position Yes -Correct Procedure Yes -Procedure Performed Yes -Type of Procedure Debridement -Clinical Debridement Subcutaneous -Tissue Removed Subcutaneous -Post Debridement (cm) - Length 3.1 -Post Debridement (cm) - Width 3.1 -Post Debridement (cm) - Depth 0.3 -Total Square (Post) (cm) 9.61 -Area of Debridement (cm) - Length 3.1 -Area of Debridement (cm) - Width 3.1 -Total Square (Area) (cm) 9.61 -Tunneling No -Undermining/Tunneling No -Circular Undermining No -Wound/Ulcer Outcome Not Healed -Ulcer Cleansing Rinsed/ Irrigated with Saline -Foul Odor after Cleansing No -Bioengineered Tissue No -Bleeding Controlled with -Offloading -Treatment Response -Debridement - Subq, 1st 20sq cm No -Debridement - Muscle / Fascia, 1st 20sq cm #21 R Med [place] -Time 09:50 -Correct Patient Yes -Correct Side, Site, Position Yes -Correct Procedure Yes -Procedure Performed Yes -Type of Procedure Debridement -Clinical Debridement Subcutaneous -Tissue Removed Subcutaneous -Post Debridement (cm) - Length 0.2 -Post Debridement (cm) - Width 0.2 -Post Debridement (cm) - Depth 0.1 -Total Square (Post) (cm) 0.04 -Area of Debridement (cm) - Length 0.2 -Area of Debridement (cm) - Width 0.2 -Total Square (Area) (cm) 0.04 -Tunneling No -Undermining/Tunneling No -Circular Undermining No -Wound/Ulcer Outcome Not Healed -Ulcer Cleansing Rinsed/ Irrigated with Saline -Foul Odor after Cleansing No -Bioengineered Tissue No -Debridement - Subq, 1st 20sq cm No #20 R med orellana sup -Time 09:50 -Correct Patient Yes -Correct Side, Site, Position Yes -Correct Procedure Yes -Procedure Performed Yes -Type of Procedure Debridement -Clinical Debridement Subcutaneous -Tissue Removed Subcutaneous -Post Debridement (cm) - Length 1.1 -Post Debridement (cm) - Width 0.6 -Post Debridement (cm) - Depth 0.2 -Total Square (Post) (cm) 0.66 -Area of Debridement (cm) - Length 1.1 -Area of Debridement (cm) - Width 0.6 -Total Square (Area) (cm) 0.66 -Tunneling No -Undermining/Tunneling No -Circular Undermining No -Wound/Ulcer Outcome Not Healed -Ulcer Cleansing Rinsed/ Irrigated with Saline -Foul Odor after Cleansing No -Bioengineered Tissue No -Bleeding Controlled with -Offloading -Treatment Response -Debridement - Subq, 20sq cm No #26 right great toe -Time 09:50 -Correct Patient Yes -Correct Side, Site, Position Yes -Correct Procedure Yes -Procedure Performed Yes -Type of Procedure Debridement -Clinical Debridement Subcutaneous -Tissue Removed Subcutaneous -Post Debridement (cm) - Length 1.0 -Post Debridement (cm) - Width 0.5 -Post Debridement (cm) - Depth 0.3 -Total Square (Post) (cm) 0.50 -Area of Debridement (cm) - Length 1.0 -Area of Debridement (cm) - Width 0.5 -Total Square (Area) (cm) 0.50 -Tunneling No -Undermining/Tunneling No -Circular Undermining No -Wound/Ulcer Outcome Not Healed -Ulcer Cleansing Rinsed/ Irrigated with Saline -Foul Odor after Cleansing No -Bioengineered Tissue No -Bleeding Controlled with -Offloading -Treatment Response -Debridement - Subq, 20sq cm No #11 RIGHT MEDIAL FOOT -Time 09:50 -Correct Patient Yes -Correct Side, Site, Position Yes -Correct Procedure Yes -Procedure Performed Yes -Type of Procedure Debridement -Clinical Debridement Subcutaneous -Tissue Removed Subcutaneous -Post Debridement (cm) - Length 6.4 -Post Debridement (cm) - Width 4.6 -Post Debridement (cm) - Depth 0.4 -Total Square (Post) (cm) 29.44 -Area of Debridement (cm) - Length 6.4 -Area of Debridement (cm) - Width 4.6 -Total Square (Area) (cm) 29.44 -Tunneling No -Undermining/Tunneling No -Circular Undermining No -Wound/Ulcer Outcome Not Healed -Ulcer Cleansing Rinsed/ Irrigated with Saline -Foul Odor after Cleansing No -Bioengineered Tissue No -Bleeding Controlled with -Offloading -Treatment Response -Debridement - Subq, 1st 20sq cm No #6 POSTERIOR LLE -Time 09:50 -Correct Patient Yes -Correct Side, Site, Position Yes -Correct Procedure Yes -Procedure Performed Yes -Type of Procedure Debridement -Clinical Debridement Subcutaneous -Tissue Removed Subcutaneous -Post Debridement (cm) - Length 7.4 -Post Debridement (cm) - Width 2.1 -Post Debridement (cm) - Depth 0.5 -Total Square (Post) (cm) 15.54 -Area of Debridement (cm) - Length 7.4 -Area of Debridement (cm) - Width 2.1 -Total Square (Area) (cm) 15.54 -Tunneling No -Undermining/Tunneling No -Circular Undermining No -Wound/Ulcer Outcome Not Healed -Ulcer Cleansing Rinsed/ Irrigated with Saline -Foul Odor after Cleansing No -Bioengineered Tissue No -Bleeding Controlled with -Offloading -Treatment Response -Debridement - Subq, 1st 20sq cm No #4 POSTERIOR RLE -Time 09:50 -Correct Patient Yes -Correct Side, Site, Position Yes -Correct Procedure Yes -Procedure Performed Yes -Type of Procedure Debridement -Clinical Debridement Subcutaneous -Tissue Removed Subcutaneous -Post Debridement (cm) - Length 6.1 -Post Debridement (cm) - Width 3.6 -Post Debridement (cm) - Depth 0.4 -Total Square (Post) (cm) 21.96 -Area of Debridement (cm) - Length 6.1 -Area of Debridement (cm) - Width 3.6 -Total Square (Area) (cm) 21.96 -Tunneling No -Undermining/Tunneling No -Circular Undermining No -Wound/Ulcer Outcome Not Healed -Ulcer Cleansing Rinsed/ Irrigated with Saline -Foul Odor after Cleansing No -Bioengineered Tissue No -Bleeding Controlled with Pressure -Offloading -Treatment Response Procedure Tolerated Well -Debridement - Subq, 1st 20sq cm Yes -Debridement, SubQ, ea addt'l 20sq cm 4 or part thereof Pain Scale: 0-10 Numeric Is Patient Pain Free? Yes 01/15/21 11:56 Wound Center Nurse 2 28. L hand 5th digit dorsal -Time -Correct Patient -Correct Side, Site, Position -Correct Procedure -Procedure Performed -Type of Procedure -Clinical Debridement -Tissue Removed -Post Debridement (cm) - Length -Post Debridement (cm) - Width -Post Debridement (cm) - Depth -Total Square (Post) (cm) -Area of Debridement (cm) - Length -Area of Debridement (cm) - Width -Total Square (Area) (cm) -Tunneling -Undermining/Tunneling -Circular Undermining -Wound/Ulcer Outcome -Ulcer Cleansing -Foul Odor after Cleansing -Bioengineered Tissue -Bleeding Controlled with -Offloading -Debridement - Subq, 1st 20sq cm 27. R Heel lateral -Time 11:59 -Correct Patient Yes -Correct Side, Site, Position Yes -Correct Procedure Yes -Procedure Performed Yes -Type of Procedure Debridement -Clinical Debridement Subcutaneous -Tissue Removed Subcutaneous -Post Debridement (cm) - Length 6 -Post Debridement (cm) - Width 3.5 -Post Debridement (cm) - Depth 0.4 -Total Square (Post) (cm) 21.0 -Area of Debridement (cm) - Length 6 -Area of Debridement (cm) - Width 3.5 -Total Square (Area) (cm) 21.0 -Tunneling No -Undermining/Tunneling No -Circular Undermining No -Wound/Ulcer Outcome Not Healed -Ulcer Cleansing Rinsed/ Irrigated with Saline -Foul Odor after Cleansing No -Bioengineered Tissue No -Bleeding Controlled with Pressure -Offloading No -Treatment Response Procedure Tolerated Well -Debridement - Subq, 1st 20sq cm Yes -Debridement, SubQ, ea addt'l 20sq cm 4 or part thereof # 25 left orellana cluster -Time 12:01 -Correct Patient Yes -Correct Side, Site, Position Yes -Correct Procedure Yes -Procedure Performed Yes -Type of Procedure Debridement -Clinical Debridement Subcutaneous -Tissue Removed Subcutaneous -Post Debridement (cm) - Length 7.5 -Post Debridement (cm) - Width 3 -Post Debridement (cm) - Depth 0.3 -Total Square (Post) (cm) 22.5 -Area of Debridement (cm) - Length 7.5 -Area of Debridement (cm) - Width 3 -Total Square (Area) (cm) 22.5 -Tunneling No -Undermining/Tunneling No -Circular Undermining No -Wound/Ulcer Outcome Not Healed -Ulcer Cleansing Rinsed/ Irrigated with Saline -Foul Odor after Cleansing No -Bioengineered Tissue No -Bleeding Controlled with Pressure -Offloading No -Treatment Response Procedure Tolerated Well -Debridement - Subq, 1st 20sq cm No -Debridement - Muscle / Fascia, 1st 20sq cm 23-right superior achilles -Time 12:01 -Correct Patient Yes -Correct Side, Site, Position Yes -Correct Procedure Yes -Procedure Performed Yes -Type of Procedure Debridement -Clinical Debridement Muscle / Fascia -Tissue Removed Muscle,Fascia -Post Debridement (cm) - Length 3.3 -Post Debridement (cm) - Width 4 -Post Debridement (cm) - Depth 0.3 -Total Square (Post) (cm) 13.2 -Area of Debridement (cm) - Length 3.3 -Area of Debridement (cm) - Width 4 -Total Square (Area) (cm) 13.2 -Tunneling No -Undermining/Tunneling No -Circular Undermining No -Wound/Ulcer Outcome Not Healed -Ulcer Cleansing Rinsed/ Irrigated with Saline -Foul Odor after Cleansing No -Bioengineered Tissue No -Bleeding Controlled with Pressure -Offloading No -Treatment Response Procedure Tolerated Well -Debridement - Subq, 1st 20sq cm -Debridement - Muscle / Fascia, 1st Yes 20sq cm #21 R Med [place] -Time -Correct Patient No -Correct Side, Site, Position No -Correct Procedure No -Procedure Performed No -Type of Procedure -Clinical Debridement -Tissue Removed -Post Debridement (cm) - Length 0 -Post Debridement (cm) - Width 0 -Post Debridement (cm) - Depth 0 -Total Square (Post) (cm) 0 -Area of Debridement (cm) - Length 0 -Area of Debridement (cm) - Width 0 -Total Square (Area) (cm) 0 -Tunneling -Undermining/Tunneling -Circular Undermining -Wound/Ulcer Outcome Healed- Epithelialized -Ulcer Cleansing -Foul Odor after Cleansing -Bioengineered Tissue -Debridement - Subq, 1st 20sq cm #20 R med orellana sup -Time 12:03 -Correct Patient Yes -Correct Side, Site, Position Yes -Correct Procedure Yes -Procedure Performed Yes -Type of Procedure Debridement -Clinical Debridement Subcutaneous -Tissue Removed Subcutaneous -Post Debridement (cm) - Length 0.9 -Post Debridement (cm) - Width 0.5 -Post Debridement (cm) - Depth 0.1 -Total Square (Post) (cm) 0.45 -Area of Debridement (cm) - Length 0.9 -Area of Debridement (cm) - Width 0.5 -Total Square (Area) (cm) 0.45 -Tunneling No -Undermining/Tunneling No -Circular Undermining No -Wound/Ulcer Outcome Not Healed -Ulcer Cleansing Rinsed/ Irrigated with Saline -Foul Odor after Cleansing No -Bioengineered Tissue No -Bleeding Controlled with Pressure -Offloading No -Treatment Response Procedure Tolerated Well -Debridement - Subq, 1st 20sq cm No #26 right great toe -Time 12:07 -Correct Patient Yes -Correct Side, Site, Position Yes -Correct Procedure Yes -Procedure Performed Yes -Type of Procedure Debridement -Clinical Debridement Subcutaneous -Tissue Removed Subcutaneous -Post Debridement (cm) - Length 1.2 -Post Debridement (cm) - Width 1 -Post Debridement (cm) - Depth 0.1 -Total Square (Post) (cm) 1.2 -Area of Debridement (cm) - Length 1.2 -Area of Debridement (cm) - Width 1 -Total Square (Area) (cm) 1.2 -Tunneling No -Undermining/Tunneling No -Circular Undermining No -Wound/Ulcer Outcome Not Healed -Ulcer Cleansing Rinsed/ Irrigated with Saline -Foul Odor after Cleansing No -Bioengineered Tissue No -Bleeding Controlled with Pressure -Offloading No -Treatment Response Procedure Tolerated Well -Debridement - Subq, 1st 20sq cm No #11 RIGHT MEDIAL FOOT -Time 12:11 -Correct Patient Yes -Correct Side, Site, Position Yes -Correct Procedure Yes -Procedure Performed Yes -Type of Procedure Debridement -Clinical Debridement Subcutaneous -Tissue Removed Subcutaneous -Post Debridement (cm) - Length 6 -Post Debridement (cm) - Width 4.9 -Post Debridement (cm) - Depth 0.3 -Total Square (Post) (cm) 29.4 -Area of Debridement (cm) - Length 6 -Area of Debridement (cm) - Width 4.9 -Total Square (Area) (cm) 29.4 -Tunneling No -Undermining/Tunneling No -Circular Undermining No -Wound/Ulcer Outcome Not Healed -Ulcer Cleansing Rinsed/ Irrigated with Saline -Foul Odor after Cleansing No -Bioengineered Tissue No -Bleeding Controlled with Pressure -Offloading No -Treatment Response Procedure Tolerated Well -Debridement - Subq, 1st 20sq cm No #6 POSTERIOR LLE -Time 12:12 -Correct Patient Yes -Correct Side, Site, Position Yes -Correct Procedure Yes -Procedure Performed Yes -Type of Procedure Debridement -Clinical Debridement Subcutaneous -Tissue Removed Subcutaneous -Post Debridement (cm) - Length 7.8 -Post Debridement (cm) - Width 2 -Post Debridement (cm) - Depth 1 -Total Square (Post) (cm) 15.6 -Area of Debridement (cm) - Length 7.8 -Area of Debridement (cm) - Width 2 -Total Square (Area) (cm) 15.6 -Tunneling No -Undermining/Tunneling No -Circular Undermining No -Wound/Ulcer Outcome Not Healed -Ulcer Cleansing Rinsed/ Irrigated with Saline -Foul Odor after Cleansing No -Bioengineered Tissue No -Bleeding Controlled with Pressure -Offloading No -Treatment Response Procedure Tolerated Well -Debridement - Subq, 1st 20sq cm No #4 POSTERIOR RLE -Time 12:13 -Correct Patient Yes -Correct Side, Site, Position Yes -Correct Procedure Yes -Procedure Performed Yes -Type of Procedure Debridement -Clinical Debridement Subcutaneous -Tissue Removed Subcutaneous -Post Debridement (cm) - Length 0.2 -Post Debridement (cm) - Width 0.2 -Post Debridement (cm) - Depth 0.2 -Total Square (Post) (cm) 0.04 -Area of Debridement (cm) - Length 0.2 -Area of Debridement (cm) - Width 0.2 -Total Square (Area) (cm) 0.04 -Tunneling No -Undermining/Tunneling No -Circular Undermining No -Wound/Ulcer Outcome Not Healed -Ulcer Cleansing Rinsed/ Irrigated with Saline -Foul Odor after Cleansing No -Bioengineered Tissue No -Bleeding Controlled with Pressure -Offloading No -Treatment Response Procedure Tolerated Well -Debridement - Subq, 1st 20sq cm No -Debridement, SubQ, ea addt'l 20sq cm or part thereof Pain Scale: 0-10 Numeric Is Patient Pain Free? Yes WC - Nurse 3 - General Ulcer D/C NN Start: 01/08/21 09:14 Freq: Status: Active Protocol: Activity Type Activity Date Activity User E-Sign Co-Sign Detail Recorded Client Recorded Date Recorded By Document 01/08/21 10:09 RB [id number] 01/08/21 10:13 RB Document 01/15/21 11:29 [facility] [id number] 01/15/21 11:33 BMF 01/08/21 01/15/21 10:09 11:29 Wound Care Nurse 3 28. L hand 5th digit dorsal -Ulcer Cleansing Rinsed/ Irrigated with Saline -Foul Odor after Cleansing No -Primary Dressing Applied Aquacel Extra -Other Dressing aquacel extra -Primary Dressing Covered/Secured with Dry Gauze,Dry Dry Gauze & Gauze & Roll Roll Gauze, Gauze,Secured Secured with with Tape Tape -Other Covering drsgs per denae connell rn -Aquacel Extra 1 27. R Heel lateral -Ulcer Cleansing Rinsed/ Rinsed/ Irrigated with Irrigated with Saline Saline -Foul Odor after Cleansing No -Primary Dressing Applied Aquacel Extra Aquacel Extra -Other Dressing all drsgs per denae connell rn -Primary Dressing Covered/Secured with Dry Gauze,Dry Dry Gauze & Gauze & Roll Roll Gauze, Gauze,Secured Secured with with Tape Tape -Aquacel Extra 3 0 # 25 left orellana cluster -Ulcer Cleansing Rinsed/ Irrigated with Saline -Foul Odor after Cleansing No -Primary Dressing Applied Aquacel Extra -Other Dressing aquacel extra -Primary Dressing Covered/Secured with Dry Gauze,Dry Gauze & Roll Gauze,Secured with Tape -Aquacel Extra 0 23-right superior achilles -Ulcer Cleansing Rinsed/ Rinsed/ Irrigated with Irrigated with Saline Saline -Foul Odor after Cleansing No -Primary Dressing Applied Aquacel Extra -Other Dressing aquacel extra -Primary Dressing Covered/Secured with Dry Gauze,Dry Dry Gauze & Gauze & Roll Roll Gauze, Gauze,Secured Secured with with Tape Tape -Aquacel Extra 0 #21 R Med [place] -Ulcer Cleansing Rinsed/ Rinsed/ Irrigated with Irrigated with Saline Saline -Foul Odor after Cleansing No -Primary Dressing Applied Aquacel Extra -Other Dressing aquacel extra -Primary Dressing Covered/Secured with Dry Gauze,Dry Dry Gauze & Gauze & Roll Roll Gauze, Gauze,Secured Secured with with Tape Tape -Aquacel Extra 0 #20 R med orellana sup -Ulcer Cleansing Rinsed/ Rinsed/ Irrigated with Irrigated with Saline Saline -Primary Dressing Applied Aquacel Extra -Other Dressing aquacel extra -Primary Dressing Covered/Secured with Dry Gauze,Dry Dry Gauze & Gauze & Roll Roll Gauze, Gauze,Secured Secured with with Tape Tape -Aquacel Extra 0 #26 right great toe -Ulcer Cleansing Rinsed/ Rinsed/ Irrigated with Irrigated with Saline Saline -Foul Odor after Cleansing No -Primary Dressing Applied Aquacel Extra -Other Dressing aquacel extra -Primary Dressing Covered/Secured with Dry Gauze,Dry Dry Gauze & Gauze & Roll Roll Gauze, Gauze,Secured Secured with with Tape Tape -Aquacel Extra 0 #11 RIGHT MEDIAL FOOT -Ulcer Cleansing Rinsed/ Rinsed/ Irrigated with Irrigated with Saline Saline -Foul Odor after Cleansing No -Primary Dressing Applied Aquacel Extra -Other Dressing aquacel extra -Primary Dressing Covered/Secured with Dry Gauze,Dry Dry Gauze & Gauze & Roll Roll Gauze, Gauze,Secured Secured with with Tape Tape -Aquacel Extra 0 #6 POSTERIOR LLE -Ulcer Cleansing Rinsed/ Rinsed/ Irrigated with Irrigated with Saline Saline -Foul Odor after Cleansing No -Primary Dressing Applied Aquacel Extra -Other Dressing aquascel extra -Primary Dressing Covered/Secured with Dry Gauze,Dry Dry Gauze & Gauze & Roll Roll Gauze, Gauze,Secured Secured with with Tape Tape -Aquacel Extra 0 #4 POSTERIOR RLE -Ulcer Cleansing Rinsed/ Rinsed/ Irrigated with Irrigated with Saline Saline -Foul Odor after Cleansing No -Primary Dressing Applied Aquacel Extra -Other Dressing aquacel extra -Primary Dressing Covered/Secured with Dry Gauze,Dry Dry Gauze & Gauze & Roll Roll Gauze, Gauze,Secured Secured with with Tape Tape -Aquacel Extra 0 Right -Compression Wrap Joao Wrap Left -Multi-Layered Wrap Application Multi-Layer Comp - Bilat ($ ) -Compression Wrap Joao Wrap Treatment Response Procedure Procedure Tolerated Well Tolerated Well Pain Scale: 0-10 Numeric Is Patient Pain Free? Yes WC - Visit Discharge Discharge Condition Stable Stable Ambulatory Status Wheelchair Wheelchair Transportation Private Auto Private Auto Accompanied by Medication Reconcilliation completed & No provided to patient/care provider Clinical Summary of Care Provided Yes Wound debrided: posterior leg Laterality: Left Wound Grade/Stage: grade 2 Type of Debridement: Excisional debridement Anesthesia Used: 5% Lidocaine Gel Depth: in the subcutaneous layer Percentage of wound debrided: 100 Instrument Used: #15 blade Tissue Removed: fibrous, devitalized subcutaneous, biofilm,slough Severity: Fat Layer Exposed Amount of bleeding with debridement: Mild Bleeding Controlled with: Pressure Patient tolerated procedure well - Additional Wound Wound debrided: anterior leg Laterality: Left Wound Grade/Stage: grade 1 Type of Debridement: Excisional debridement Anesthesia Used: 5% Lidocaine Gel Depth: in the subcutaneous layer Percentage of wound debrided: 100 Instrument Used: #15 blade Tissue Removed: fibrous, devitalized subcutaneous, biofilm,slough Severity: Fat Layer Exposed Amount of bleeding with debridement: Mild Bleeding Controlled with: Pressure Patient tolerated procedure: Patient tolerated procedure well - Additional Wound Wound debrided: hallux, medial forefoot Laterality: Right Wound Grade/Stage: grade 1 Type of Debridement: Excisional debridement Anesthesia Used: 5% Lidocaine Gel Depth: in the subcutaneous layer Percentage of wound debrided: 100 Instrument Used: #15 blade Tissue Removed: fibrous, devitalized subcutaneous, biofilm,slough Severity: Fat Layer Exposed Amount of bleeding with debridement: Mild Bleeding Controlled with: Pressure Patient tolerated procedure: Patient tolerated procedure well - Additional Wound Wound debrided: posterior leg (superior) Laterality: Right Wound Grade/Stage: grade 3 Type of Debridement: Excisional debridement Anesthesia Used: 5% Lidocaine Gel Depth: in the subcutaneous layer, to muscle Percentage of wound debrided: 100 Instrument Used: #15 blade, Forceps Tissue Removed: fibrous, devitalized subcutaneous and tendon/muscle, biofilm,slough Severity: Necrosis of Muscle Amount of bleeding with debridement: Mild Bleeding Controlled with: Pressure Patient tolerated procedure: Patient tolerated procedure well - Additional Wound Wound debrided: posterior leg (inferior), plantar foot Laterality: Right Wound Grade/Stage: grade 3 Type of Debridement: Excisional debridement Anesthesia Used: 5% Lidocaine Gel Depth: in the subcutaneous layer Percentage of wound debrided: 100 Instrument Used: #15 blade Tissue Removed: fibrous, devitalized subcutaneous, biofilm,slough Severity: Fat Layer Exposed Amount of bleeding with debridement: Mild Bleeding Controlled with: Pressure Patient tolerated procedure: Patient tolerated procedure well Assessment/Plan Clinical Impression(s) from Imaging Studies Finger X-Ray 01/13/21 14:39 IMPRESSION: Normal x-ray examination of the finger. 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, and in the PIP and DIP joints No demonstrated acute fracture, old ununited ulnar styloid fracture Electronically Signed: Kory Szymanski MD at 16:57 EST , Service support , Active Problems (Last Updated 09/28/18 @ 12:41 by Geraldine Steele) Smoker (Chronic) Open wound of left hand (Acute) Nonhealing nonsurgical wound with fat layer exposed (Acute) 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 -Lower extremity edema, stable. -Right plantar medial first metatarsal head ulcer, nguyen grade 1, stable. -Right posterior leg ulcer grade 3 (inferior). -Right posterior leg ulcer grade 3 (superior, tendon exposed). -right anterior leg ulcers (medial, superior, anterior, inferior) grade 1, no infection. -Left posterior leg ulcer, nguyen grade 2, stable. -diabetic neuropathy. -malnutrition suspected. - vasculitis versus necrobiosis lipoidica diabeticorum versus other skin condition. -delayed healing. -gait impairment and fall risk. -other comorbidities. -Continued smoking habits. -newer hand ulcers (seen by other wound care center provider) Plan: I reviewed and discussed his case today. Debridement was performed to all sites as noted in the nursing panel in a subcutaneous excisional manner and also excisional tendon manner to the right posterior leg (superior location). Compliance was reviewed while he is outside he needs to wear a cam walker to avoid these types of injuries. To change daily Dakin wet-to-dry dressing to bilateral posterior legs and plantar right foot sites and also with Aquacel Ag to all other sites. To wash with Dial soap and water and periodically antimicrobial Puja-Hex soap. He was reassured no local or systemic signs of illness is suspected today. However, deteriorization 3 of the wounds are noted therefore the dressing plan was updated. To continue increased protein intake with nutritional supplementation. To continue glycemic control. It is also noted that he did have venous Doppler performed with reflux evaluation. He did not have evidence of deep venous thrombosis or venous insufficiency at that time; the vessels were compressible. He had noninvasive vascular studies ordered and these results were reviewed today. His left DOROTHY 0.88. We are unable to obtain a right DOROTHY and it is noted he has arterial calcifications. His findings are consistent with mild to moderate arterial occlusive disease. Given his lack of healing I recommended vascular surgery consultation at this time to see if additional work-up or interventions are available to optimize his healing. He was referred to Dr. Morgan. I recommend he sustained from smoking and alcohol activities to optimize healing as well. Smoking cessation was encouraged. He elects to proceed with a more palliative care plan and will return to clinic in 2 weeks. It is also noted he was seen by Myrtle Jara, wound center practitioner for hand ulcers. Updated vasculitis work-up is in process. Prior workup summary: His workup for vasculitis and underlying autoimmune disorder has been completed. A punch biopsy was sent during his last surgical intervention on June 10 and this demonstrated inflammatory changes without malignancy. He had initial screening labs and so far he has a negative RA titer, HL of the 27, KEVIN, anti-CCP, and rheumatoid factor. Several his antibody screenings were not reportable. Hyperbaric oxygen therapy was recommended and it is noted his ejection fraction was most recently 50%. He refuses at this time. I answered his questions. To return to the wound healing center in 2 week. To call sooner if he has any questions or concerns. Note: Tel[employer] speech recognition manugrapher software was used to create portions of this document. Sound-alike and misspelled words, as well as other manugrapher errors may be contained in the documentation. 20 minutes was spent on this encounter. This included face to face and non face to face care including preparing for the visit, reviewing the history, performing the exam, counseling and providing education to the patient, family, or caregiver, ordering medications/test/ procedures if indicated as documented, communicating with other healthcare providers, documenting information in the medical record, interpreting / sharing this information when indicated as documented, and care coordination. . 2020 Deborah. Reviewed today: Medications allergies reviewed and reconciled. Reviewed 01-08-2021: BMI 32.2 this is elevated. To follow-up with primary care physician. Nutrition and to be modifications were reviewed to optimize health and wound healing. His blood pressure was elevated last visit on 12-23-20 at 127/88. To follow-up with primary care physician. He deferred blood pressure check today. It is noted he has fallen more than 2 times within the past year. His gait was assessed that he is unsteady. He was advised to use specific aid form seated exercises to improve stability. He has previously been referred to therapy. He is a current smoker and was advised on smoking cessation for overall health and for ulcer healing. He obtained an influenza vaccination.
== END 2021-01-19 23:59 ==
LOC: WC 10:00
PROVIDERS: Family Provider Family Medicine; PCP Family Medicine; Referring Provider Podiatrist; Visit Provider Podiatrist
DX: E11.622 Type 2 diabetes mellitus with other skin ulcer (principal); L97.822 Non-pressure chronic ulcer of other part of left lower leg with fat layer exposed; L97.813 Non-pressure chronic ulcer of other part of right lower leg with necrosis of muscle; L97.812 Non-pressure chronic ulcer of other part of right lower leg with fat layer exposed; E11.621 Type 2 diabetes mellitus with foot ulcer; L97.412 Non-pressure chronic ulcer of right heel and midfoot with fat layer exposed; R60.0 Localized edema; E11.40 Type 2 diabetes mellitus with diabetic neuropathy, unspecified; R26.9 Unspecified abnormalities of gait and mobility; F17.210 Nicotine dependence, cigarettes, uncomplicated
CPT/HCPCS: 11042; 11043; 11045; 29581; 36415; 73130; 73140; 86038; 86140; 86225; 86235; 93923

== ENCOUNTER 2021-01-22 10:15 | Outpatient (RCR) | payer MEDICARE, SELFPAY ==
[2021-01-20 00:17] VITALS: BP 129/79; PULSE 103; RESP 18; TEMP 36.2
[2021-01-22 10:36] VITALS: BP 140/105; PULSE 116; RESP 16; TEMP 35.9; BMI 32.3
--- NOTE | 2021-01-22 11:06 | PCM.WC.PN ---
(1) History of alcohol abuse Status: Acute Code(s): F10.11 - Alcohol abuse, in remission (2) Nonhealing nonsurgical wound with fat layer exposed Status: Acute Code(s): T14.8XXA - Other injury of unspecified body region, initial encounter (3) Open wound of left hand Status: Acute Code(s): S61.402A - Unspecified open wound of left hand, initial encounter (4) Type 2 diabetes mellitus with other skin ulcer Status: Acute Code(s): E11.622 - Type 2 diabetes mellitus with other skin ulcer; L98.499 - Non-pressure chronic ulcer of skin of other sites with unspecified severity (5) Smoking addiction Status: Acute Code(s): F17.200 - Nicotine dependence, unspecified, uncomplicated (6) PAD (peripheral artery disease) Status: Acute Code(s): I73.9 - Peripheral vascular disease, unspecified Type of Wound Date of Service: 01/22/21 Chief Complaint: Left hand open wound fifth phalanx knuckle History of Wound: Mr. Arguello is a 65-year-old male with open wound from blistering on left little finger knuckle months ago, and multiple comorbidities follows up for delayed healing ulcers to the right foot as well as bilateral legs. He denies chills, fever, nausea, or vomiting. He denies odor. He has been changing his dressings with Dakin's solution and has decreased drainage compared to last week. He denies pain. He is with his today. He continues to smoke about 10 or more cigarettes daily. He reports increased bilateral leg discomfort at rest. He had his noninvasive vascular studies completed and would like to go over the results today. Progress of Wound: Left dorsal hand knuckle fifth phalanx still open positive depth tendon still can be seen still pending is his epi fix with insurance. Sign of infection continues the same - Physical Exam Vital Signs Temp Pulse Resp BP 96.6 F L 116 H 16 140/105 H 01/22/21 10:36 01/22/21 10:36 01/22/21 10:36 01/22/21 10:36 General: Oriented x3, Cooperative, Well developed HEENT: Atraumatic, PERRLA Oral: Moist Mucosa Neck: Supple, No JVD Lungs: Clear to auscultation, Normal air movement Cardiovascular: Regular rate, Regular Rhythm Abdomen: Bowel Sounds Present, Soft, Non Tender, No Hepato-splenomegaly Extremities: No clubbing, No edema, - - Left hand dorsal little finger knuckle open positive depth with tendon of involvement Wound Measurements and Assessment WC - Nurse 1 - General Ulcer Measurement Start: 01/22/21 10:36 Freq: Status: Active Protocol: Activity Type Activity Date Activity User E-Sign Co-Sign Detail Recorded Client Recorded Date Recorded By Document 01/22/21 10:36 BM [id number] 01/22/21 10:45 BMF 01/22/21 10:36 Wound Center Nurse 1 [Ulcer Assessment] 28. L hand 5th digit dorsal -Combined with other wound No -Current Size (cm) - Length 1 -Current Size (cm) - Width 0.9 -Current Size (cm) - Depth 0.3 -Total Square Cm 0.9 -Photo Taken No -Epithelialization None Present -Tunneling No -Undermining/Tunneling Yes -Undermining/Tunneling Starts (O' 12 clock) -Undermining/Tunneling Ends (O'clock) 12 -Maximum Distance (cm) 0.4 -Circular Undermining Yes -Exudate Amt Medium -Exudate Type Yellow/Green -Wound Margin Distinct, Outline Attached -Granulation Amt Small (1-33%) -Granulation Quality [place] -Slough/Fibrin Yes -Necrosis Amt Large (67-100%) -Necrotic Tissue Type Adherent Slough -Texture (Lisa-wound Skin Appearance) Assessed, Scarring -Moisture (Lisa-wound Skin Appearance Assessed,Dry/ ) Scaly -Color (Lisa-wound Skin Appearance) Assessed -Temperature (Lisa-wound Skin No Abnormality Appearance) (Pt Warm) -Tenderness on Palpation (Lisa-wound No Skin Appearance) -Ulcer Cleansing Rinsed/ Irrigated with Saline -Foul Odor after Cleansing No -Anesthetic Used 5% Lidocaine Gel WC - Nurse 2 - General Ulcer CM Notes Start: 01/22/21 10:36 Freq: Status: Active Protocol: Activity Type Activity Date Activity User E-Sign Co-Sign Detail Recorded Client Recorded Date Recorded By Document 01/22/21 10:51 MW [id number] 01/22/21 10:52 MW 01/22/21 10:51 Wound Center Nurse 2 [Procedure/Treatment] -Time 10:52 -Correct Patient Yes -Correct Side, Site, Position Yes -Correct Procedure Yes -Procedure Performed Yes -Type of Procedure Debridement -Clinical Debridement Subcutaneous -Tissue Removed Subcutaneous -Post Debridement (cm) - Length 0.8 -Post Debridement (cm) - Width 1.0 -Post Debridement (cm) - Depth 0.3 -Total Square (Post) (cm) 0.80 -Area of Debridement (cm) - Length 0.8 -Area of Debridement (cm) - Width 1.0 -Total Square (Area) (cm) 0.80 -Tunneling No -Undermining/Tunneling No -Circular Undermining No -Wound/Ulcer Outcome Not Healed -Ulcer Cleansing Rinsed/ Irrigated with Saline -Foul Odor after Cleansing No -Bioengineered Tissue No -Bleeding Controlled with Pressure -Offloading No -Treatment Response Procedure Tolerated Well -Debridement - Subq, 1st 20sq cm Yes [See Physician Procedure note for Specifics] - Nurse 3 - General Ulcer D/C NN Start: 01/22/21 10:36 Freq: Status: Active Protocol: Activity Type Activity Date Activity User E-Sign Co-Sign Detail Recorded Client Recorded Date Recorded By Document 01/22/21 11:01 [facility] [id number] 01/22/21 11:01 [facility] 01/22/21 11:01 Wound Care Nurse 3 [Wound Dressing] 28. L hand 5th digit dorsal -Ulcer Cleansing Rinsed/ Irrigated with Saline -Foul Odor after Cleansing No -Primary Dressing Applied Aquacel Extra -Primary Dressing Covered/Secured Dry Gauze & with Roll Gauze, Secured with Tape -Aquacel Extra 1 [Post Procedure Tolerated] -Treatment Response Procedure Tolerated Well Pain Scale: 0-10 Numeric [Pain] -Is Patient Pain Free? Yes - Visit Discharge [Visit Discharge Information] -Discharge Condition Stable -Ambulatory Status Wheelchair -Transportation Private Auto -Accompanied by Musculoskeletal: No Tenderness to Palpation of Joints or Extremities Lymphatic: No Cervical, Supraclavicular, or Inguinal Adenopathy Neurological: Cranial nerves II-XII grossly intact, Neuro grossly intact Psych/Mental Status: Normal Affect, Appropriate Debridement Note Post-Debridement Measurements/Treatment - Nurse 2 - General Ulcer CM Notes Start: 01/22/21 10:36 Freq: Status: Active Protocol: Activity Type Activity Date Activity User E-Sign Co-Sign Detail Recorded Client Recorded Date Recorded By Document 01/22/21 10:51 [id number] 01/22/21 10:52 MW 01/22/21 10:51 Wound Center Nurse 2 28. L hand 5th digit dorsal -Time 10:52 -Correct Patient Yes -Correct Side, Site, Position Yes -Correct Procedure Yes -Procedure Performed Yes -Type of Procedure Debridement -Clinical Debridement Subcutaneous -Tissue Removed Subcutaneous -Post Debridement (cm) - Length 0.8 -Post Debridement (cm) - Width 1.0 -Post Debridement (cm) - Depth 0.3 -Total Square (Post) (cm) 0.80 -Area of Debridement (cm) - Length 0.8 -Area of Debridement (cm) - Width 1.0 -Total Square (Area) (cm) 0.80 -Tunneling No -Undermining/Tunneling No -Circular Undermining No -Wound/Ulcer Outcome Not Healed -Ulcer Cleansing Rinsed/ Irrigated with Saline -Foul Odor after Cleansing No -Bioengineered Tissue No -Bleeding Controlled with Pressure -Offloading No -Treatment Response Procedure Tolerated Well -Debridement - Subq, 1st 20sq cm Yes - Nurse 3 - General Ulcer D/C NN Start: 01/22/21 10:36 Freq: Status: Active Protocol: Activity Type Activity Date Activity User E-Sign Co-Sign Detail Recorded Client Recorded Date Recorded By Document 01/22/21 11:01 [facility] [id number] 01/22/21 11:01 [facility] 01/22/21 11:01 Wound Care Nurse 3 -Ulcer Cleansing Rinsed/ Irrigated with Saline -Foul Odor after Cleansing No -Primary Dressing Applied Aquacel Extra -Primary Dressing Covered/Secured with Dry Gauze & Roll Gauze, Secured with Tape -Aquacel Extra 1 Treatment Response Procedure Tolerated Well Pain Scale: 0-10 Numeric Is Patient Pain Free? Yes WC - Visit Discharge Discharge Condition Stable Ambulatory Status Wheelchair Transportation Private Auto Accompanied by Wound debrided: Dorsal hand Type of Debridement: Excisional debridement Depth: Down to and including healthy tissue, to muscle Instrument Used: 5mm curette Tissue Removed: Slough fibrin Severity: Fat Layer Exposed - Tendon visible Amount of bleeding with debridement: Mild Bleeding Controlled with: Pressure Patient tolerated procedure well Assessment/Plan Active Problems (Last Updated 09/28/18 @ 12:41 by Geraldine Steele) Open wound of left hand (Acute) Nonhealing nonsurgical wound with fat layer exposed (Acute) History of alcohol abuse (Acute) Smoking addiction (Acute) PAD (peripheral artery disease) (Acute) Type 2 diabetes mellitus with other skin ulcer (Acute) Assessment: -Peripheral vascular disease suspected. PAD. Open wound left hand. Tobacco abuse. History of alcoholism Plan: Wash left hand with antibacterial soap. Apply Aquacel extra to wound base and on the undermining areas also. Cover with gauze tape. Wear cotton gloves with fingers removed to hold dressing in place on hand
== END 2021-02-19 23:59 ==
LOC: WC 10:15
PROVIDERS: Family Provider Family Medicine; PCP Family Medicine; Referring Provider Podiatrist; Visit Provider Podiatrist
DX: I73.9 Peripheral vascular disease, unspecified (principal); E11.622 Type 2 diabetes mellitus with other skin ulcer; L98.499 Non-pressure chronic ulcer of skin of other sites with unspecified severity; E11.51 Type 2 diabetes mellitus with diabetic peripheral angiopathy without gangrene; F17.210 Nicotine dependence, cigarettes, uncomplicated; F10.10 Alcohol abuse, uncomplicated; S61.402A Unspecified open wound of left hand, initial encounter
CPT/HCPCS: 11042

== ENCOUNTER 2021-01-25 12:04 | Inpatient (IN) | payer MEDICARE, SELFPAY ==
[2021-01-25] VITALS (13 sets, daily range): BP systolic 104–118; BP diastolic 82–90; PULSE 80–116; RESP 16–26; TEMP 36.3–37; O2SAT 85–99; BMI 33.3; BMI 34.2
--- NOTE | 2021-01-25 12:46 | ED.VISSUMM ---
- ER Visit Summary Date of Service: 01/25/21 Chief Complaint: [Redness and swelling to left leg] History of Present Illness: The patient is a 65 M [presents to the emergency department with complaint of redness and swelling to his left leg for the last 3 days. Patient has history of chronic wounds and sees the wound center and has seen Dr. Gruber. Patient states that 3 days ago started having increased redness and swelling. He denies fevers, chills, or sweats. Patient has not been ill recently. He does have history of COPD, diabetes, peripheral artery disease, A. fib, pulmonary hypertension. Patient on Coumadin.] Physical Examination: [HEENT-PERRLA, EOMI. Cranial nerves II through XII grossly intact. TMs clear. Mucous membranes moist. No adenopathy. Cardiovascular-regular rate and rhythm without murmur or ectopy Lungs-clear to auscultation, chest wall stable without crepitus or subcu emphysema Abdomen-normoactive bowel sounds, soft, nontender, no rebound or rigidity, no peritoneal signs. Extremities-intact ?4, normal range of motion, normal pulses, atraumatic. Left leg-patient has diffuse erythema and cellulitic changes from just below the knee to the foot. Patient has several chronic wounds noted to the pretibial region. Patient has some serous drainage noted on the dressings that he was wearing. Patient has diminished dorsal pedal and posterior tibial pulses but cap refill is less than 3 seconds. Extremity is warm to the touch.] Test Results: [CBC with differential obtained showing a 10.4, hemoglobin 14, hematocrit 47, plates 98. Chemistries unremarkable. BUN was 63 and creatinine 2.12. Total bilirubin slightly elevated 3.2. Alk phos was 251 and ALT was 23 as well as AST was 24. INR was 3.0. Lactate was 2.2.] Emergency Department Course and Treatment: [ Established on arrival. Patient was started on Unasyn and vancomycin IV.] Treatment Plan: [Admit] Disposition: [Admit] Impression: [Leg cellulitis Acute kidney injury Hyperbilirubinemia Lactic acidosis] This note was generated with [employer] dictation software. It may contain incorrect words, spelling, and punctuation that were not noted in review of the chart prior to signing ED Disposition - Plan for ED Patient: Referrals: Hong Sparks MD [Primary Care Provider] -
[2021-01-25 13:12] LABS: ALB/GLOB Ratio 0.6 RATIO (0.9-2.4); AST(SGOT) 24 U/L (15-37); Absolute Lymphocyte Count 0.44 X10^3/uL (0.83-4.51); Absolute Neutrophil Count 8.9 X10^3/uL (2.0-7.7); Alanine Aminotransfer ALT/SGPT 23 U/L (16-61); Albumin, Serum 2.7 g/dL (3.2-5.0); Alkaline Phosphatase 251 U/L (45-117); Anion Gap 6 (5-15); BUN 63 mg/dL (7-18); BUN/Creat Ratio 29.7 RATIO (10-20); Basophil# 0.01 X10^3/uL; Basophil% 0.1 % (0-1); Calcium,Total 9.2 mg/dL (8.5-10.1); Chloride 96 mmol/L (98-107); Creatinine, Serum 2.12 mg/dL (0.70-1.30); EST Glomerular Filtration Rate 33 mL/min (>60); Eosinophil# 0.04 X10^3/uL; Eosinophils% 0.4 % (0-5); Est Glom Filt Rate - Afr Amer 40 mL/min (>60); Estimated Creatinine Clearance 39.85 ml/min; Globulin 4.3 g/dL (2.2-4.2); Glucose 174 mg/dL (74-106); Hematocrit 47.4 % (40-54); Lymphocyte # 0.44 X10^3/ul (4.0); Lymphocyte % 4.3 % (19-41); Mean Corp Hgb Conc 29.5 g/dL (32-36); Mean Corpuscular Hgb 30.6 pg (27.0-32.0); Mean Corpuscular Volume 103.7 fL (80-94); Mean Platelet Vol. 13.5 fl (6.2-12.0); Monocyte# 0.87 X10^3/uL; Monocyte% 8.4 % (0-10); NRBC Flagged by Analyzer 0 % (0-5); Neutrophil # 8.94 X10^3/uL (2.7-7.7); Neutrophil % 86.3 % (47-70); POSITIVE COUNT YES; POSITIVE DIFFERENTIAL YES; POSITIVE MORPHOLOGY YES; Platelet Count 98 K/mm3 (150-450); Potassium 4.6 mmol/L (3.5-5.1); RBC Distribution Width CV 19.1 % (11.6-14.6); RBC Distribution Width SD 71.9 fl (35.1-43.9); Red Blood Count 4.57 M/mm3 (4.6-6.2); Sodium Level 136 mmol/L (136-145); White Blood Count 10.4 K/mm3 (4.4-11.0)
[2021-01-25 13:18] LABS: Differential Indicated SCAN CRITERIA MET
[2021-01-25 13:27] LABS: Prothrombin Time (Protime)PT. 31.1 SECONDS (11.7-14.9)
[2021-01-25 13:28] LABS: Lactic Acid 2.2 mmol/L (0.4-1.9)
[2021-01-25 13:45] LABS: Anisocytosis 2+; Differential Comment SCANNED; Macrocytosis 1+; Microcytosis 1+; Platelet Estimate MOD DEC (ADEQ); Platelet Morphology LARGE
[2021-01-25] MEDS: 0.9% Normal Saline 1,000 ML 150 ML IV (13:50)
--- NOTE | 2021-01-25 14:40 | RAD_ITS ---
STUDY: X-RAY - LEFT TIBIA AND FIBULA REASON FOR EXAM: Male, 65 years old. infection foot/ankle/leg TECHNIQUE: 2 view(s) of the tibia and fibula were obtained. COMPARISON: None. FINDINGS: Normal visualized tibia. Normal visualized fibula. There is no demonstrated destructive osseous lesion. Diffuse soft tissue swelling with ulcer/defect of the lower posterior leg. RAD/Tibia & Fibula 2 Views IMPRESSION: Diffuse soft tissue swelling with ulcer/defect of the lower posterior leg. No destructive bony process. Electronically Signed: Elvis Veras MD ([place]) at 16:30 EST , Service support ,
--- NOTE | 2021-01-25 14:40 | RAD_ITS ---
STUDY: X-RAY - LEFT FOOT CLINICAL: Male, 65 years old. infection TECHNIQUE: 2 view(s) of the foot. COMPARISON: None. FINDINGS: There is a plantar calcaneal spur. Normal visualized subtalar, talonavicular, calcaneocuboid, tarsal and tarsometatarsal articulations. Normal metatarsi. Normal metatarsophalangeal joint of the great toe. Normal tibial and fibular sesamoid bones. Normal interphalangeal joint of the great toe. Normal phalanges of the great toe. Normal second through fifth metatarsophalangeal joints. Normal interphalangeal joints and phalanges of the lesser toes. Diffuse soft tissue swelling with ulcer/defect of the lower posterior leg. RAD/Foot 2 Views IMPRESSION: No destructive bony process. Diffuse soft tissue swelling with ulcer/defect of the lower posterior leg. Electronically Signed: Elvis Veras MD ([place]) at 16:29 EST , Service support ,
--- NOTE | 2021-01-25 14:42 | HP.PCM_ITS ---
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 The patient is a 65 year old M with multiple medical comorbidities as mentioned above presented to the emergency room because of increasing left leg redness and swelling. This patient history of chronic bilateral extremity lymphedema, nonhealing bilateral leg ulcers, right foot osteomyelitis status post amputation of the right second and third toe and she has been following up with wound care center as outpatient. Over the last week, patient mentioned that he has been having increasing left leg swelling and redness extending from the just below the left knee down to the left foot, has been progressive, associated with left leg pain. He complains of left leg pain, dull aching pain, goes anywhere from 0-7 out of 10 in severity and he continued to have this increasing leg swelling and erythema. He denied fever or chills. His also mentioned that his skin color changed over the last several days and it became more yellow and this is new to him. Patient denies any abdominal pain, denied right upper quadrant abdominal pain, denied nausea or vomiting. In the emergency department, he was afebrile, blood pressure and heart rate were stable, pulse ox was 92% on room air. Routine blood work was remarkable for chronic thrombocytopenia, BUN of 63 and creatinine is 2.12. Lactic acid was 2.2. LFT revealed bilirubin of 3.20, both AST and ALT were normal, alk phos is 251. He is being admitted for acute left lower extremity cellulitis/infected nonhealing left leg ulcers, found to have GUALBERTO on CKD and jaundice with hyperbilirubinemia. Past Medical History Past Medical History (Chronic Problems): Chronic Problems (Last Updated 01/25/21 @ 14:[address] Mellissa Fonseca MD) Open wound of left hand (Chronic) History of alcohol abuse (Chronic) Smoking addiction (Chronic) PAD (peripheral artery disease) (Chronic) 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) 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) Chronic systolic (congestive) heart failure (Chronic) Chronic kidney disease (Chronic) Dilated cardiomyopathy (Chronic) Nonrheumatic mitral (valve) insufficiency (Chronic) Paroxysmal atrial fibrillation (Chronic) CVA (cerebral vascular accident) (Chronic) Hyperlipidemia (Chronic) Essential (primary) hypertension (Chronic) Secondary pulmonary arterial hypertension (Chronic) Skin ulcer of right knee with fat layer exposed (Chronic) Skin ulcer of left knee with fat layer exposed (Chronic) 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 Anticipate Stage III or IV if excision done. Right ischial pressure sore, stage 2 (Chronic) at least a Stage II. Anticipate Stage III or IV if excision done. Pressure ulcer of sacral region, stage 2 (Chronic) at least a Stage II. Anticipate Stage III or IV if excision done. Vasculitis (Chronic) PVD (peripheral vascular disease) (Chronic) Anemia (Chronic) Cardiomyopathy (Chronic) 47 % EF in 2012 CVA, old, hemiparesis (Chronic) left side weakness....stroke in 2013 BPH (benign prostatic hyperplasia) (Chronic) Urinary incontinence (Chronic) Ulcer of right lower extremity with fat layer exposed (Chronic) 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) Osteomyelitis (Chronic) Malnutrition (Chronic) DM2 (diabetes mellitus, type 2) (Chronic) Depression (Chronic) Chronic low back pain (Chronic) Medical History: Medical History (Last Updated 01/25/21 @ 14:[address] Mellissa Fonseca MD) Chronic systolic (congestive) heart failure (Chronic) I50.22 Chronic kidney disease (Chronic) N18.9 Dilated cardiomyopathy (Chronic) I42.0 Nonrheumatic mitral (valve) insufficiency (Chronic) I34.0 Paroxysmal atrial fibrillation (Chronic) I48.0 CVA (cerebral vascular accident) (Chronic) I63.9 Hyperlipidemia (Chronic) E78.5 Essential (primary) hypertension (Chronic) I10 Secondary pulmonary arterial hypertension (Chronic) I27.21 Anemia (Chronic) D64.9 Cardiomyopathy (Chronic) I42.9 47 % EF in 2012 CVA, old, hemiparesis (Chronic) I69.359 left side weakness....stroke in 2012 DM2 (diabetes mellitus, type 2) (Chronic) E11.9 Osteomyelitis M86.9 Pulmonary HTN (Inactive) I27.20 PA systolic 51 in 2012 Allergies No Known Allergies Allergy (Verified 01/25/21 12:06) Home Medications: Ambulatory Orders Medication Instructions Recorded Aspirin [Adult Aspirin] 81 mg PO DAILY 06/07/18 Cholecalciferol (VIT D3) [Vitamin 1,000 unit PO DAILY 06/07/18 D3] Acetaminophen [Tylenol Tablet] 650 mg PO Q6H PRN PRN tablet 06/14/18 Tamsulosin HCl [Flomax] 0.4 mg PO DAILY@1730 capsule 06/14/18 Zinc Sulfate (50mg elemental) 220 mg PO DAILY capsule 06/14/18 [Zinc Sulfate] Famotidine 20 mg PO DAILY 08/05/18 Insulin Lispro [Humalog] See Protocol SQ 4X/DAY 08/05/18 Multivitamins,Ther W-Minerals 1 tablet PO DAILY 08/05/18 [Multivitamin With Minerals ([facility])] Paroxetine HCl [Paxil] 40 mg PO DAILY 08/05/18 Warfarin [Coumadin] 5 mg PO SUMOTUWEFRSA 08/05/18 glipiZIDE [Glucotrol] 10 mg PO DAILY@0730 08/05/18 Atenolol [Tenormin (beta dilia)] 50 mg PO DAILY tablet 08/10/18 Ferrous Sulfate 325 mg PO BIDCM tablet 08/10/18 Spironolactone 25 mg PO DAILY 06/29/19 Warfarin [Coumadin ([facility])] 2.5 mg PO TH 06/29/19 Gabapentin [Neurontin] 200 mg PO DAILY 08/09/19 Ascorbic Acid [Vitamin C] 500 mg PO DAILY 10/27/19 Insulin Glargine,Hum.rec.anlog 18 unit SQ DAILY 01/17/20 [Lantus] Bumetanide [Bumex] 1 mg PO DAILY 01/25/21 Levomefolate/B6/B12/Algal Oil 1 ea PO BID 01/25/21 [Metanx Capsule] Surgical History: Surgical History (Last Updated 09/28/18 @ 12:36 by Geraldine Steele) History of incision and drainage Z98.890 BLE Surgical History: tonsillectomy Psychiatric History: Depression Lives: Spouse/ Significant Other Smoking Status: Current every day smoker Tobacco Use: Cigarettes Alcohol: None Drugs: None - *Family History Paternal Family History: Family History (Last Updated 09/28/18 @ 12:35 by Geraldine Steele) Father Heart disease Mother CVA (cerebral vascular accident) History Items: Heart Disease - His father had atrial fibrillation and an AICD/pacemaker Maternal Family History: Family History (Last Updated 09/28/18 @ 12:35 by Geraldine Steele) Father Heart disease Mother CVA (cerebral vascular accident) History Items: Diabetes - His mother had severe diabetes mellitus and had amputations of her lower extremities. Review of Systems Constitutional: Denies: Anorexia, Chills, Fever, Weakness Eyes: Denies: Blurred vision, Conjunctivae Inflammation, Double vision, Redness HEENT: Denies: Difficulty Hearing, Ear Pain, Eye Pain, Nasal Congestion, Sore Throat Cardiovascular: Denies: Chest Pain, Chest Pressure, Edema, Heaviness, Palpitations, Syncope Respiratory: Denies: Cough, Pleuritic Pain, Shortness of Breath, Sputum production, Wheezing Gastrointestinal: Denies: Abdominal Pain, Constipation, Diarrhea, Nausea, Vomiting Genitourinary: Denies: Dysuria, Frequency, Hematuria Musculoskeletal: Reports: Leg Pain. Denies: Arm Pain, Back Pain, Foot Pain Skin: Reports: Jaundice, Skin Changes, Wounds. Denies: Dryness Neurological: Denies: Balance problems, Double vision, Change in Speech, Slurred speech, Confusion, Focal weakness, Headaches, Incoordination Psychiatric: Reports: Depression. Denies: Anxiety Endocrine: Denies: Change in Body Habitus, Polydipsia, Polyuria VTE Information - Inpt Only VTE Present on Admission: No VTE Mechan Device Prophylaxis: None VTE Pharm Prophylaxis ordered?: No - Physical Exam Vitals/I&O's: Vital Signs Temp Pulse Resp BP Pulse Ox 98.6 F 101 H 16 104/90 H 96 01/25/21 14:25 01/25/21 14:25 01/25/21 14:25 01/25/21 14:25 01/25/21 14:25 Oxygen Delivery Method Room Air Weight: 260 lb Body Mass Index (BMI) 33.3 Finger Stick Blood Glucose 155 General: Alert, Oriented x3, Cooperative, No apparent distress HEENT: Atraumatic, PERRLA, EOMI, Normocephalic Oral: Moist Mucosa, No Gingival or Mucosal Lesions/ Ulcerations Neck: Supple, No JVD, Negative Carotid Bruits, Trachea Midline, Thyroid Normal Size and Texture Lungs: Clear to auscultation, No rhonchi, No wheeze, No rales, Diminished Cardiovascular: Regular rate, Regular Rhythm, Normal S1, Normal S2, PMI Normal Abdomen: Bowel Sounds Present, Soft, Non Tender, Non-Distended, No Hepato- splenomegaly, Obese Extremities: No clubbing, No cyanosis, Edema, - - Left leg: Extensive edema and and erythema of the left leg extending from the just below left knee down to the left foot, nonhealing ulcers on the medial aspect. Right leg: Dressed. Skin: No rashes, Ulcer/ Wound Lymphatic: No Cervical, Supraclavicular, or Inguinal Adenopathy Neurological: Cranial nerves II-XII grossly intact, Motor Exam 5/5 strength throughout Psych/Mental Status: Normal Affect, Appropriate, Alert and oriented to time, place, person, mood and affect Laboratory Results 01/25/21 12:40: Lactic Acid 2.2 H* 01/25/21 12:42: Sodium 136, Potassium 4.6, Chloride 96 L, Carbon Dioxide 34.0 H, Anion Gap 6, BUN 63 H, Creatinine 2.12 H, Estim Creat Clear Calc 39.85, Est GFR (MDRD) Af Amer 40 L, Est GFR (MDRD) Non-Af 33 L, BUN/Creatinine Ratio 29.7 H, Glucose 174 H, Calcium 9.2, Total Bilirubin 3.20 H, AST 24, ALT 23, Alkaline Phosphatase 251 H, Total Protein 7.0, Albumin 2.7 L, Globulin 4.3 H, Albumin/Globulin Ratio 0.6 L 01/25/21 12:42: WBC 10.4, RBC 4.57 L, Hgb 14.0, Hct 47.4, MCV 103.7 H, MCH 30.6, MCHC 29.5 L, RDW Std Deviation 71.9 H, RDW Coeff of Iban 19.1 H, Plt Count 98 L, MPV 13.5 H, Immature Gran % (Auto) 0.500, Neut % (Auto) 86.3 H, Lymph % (Auto) 4.3 L, Prentiss % (Auto) 8.4, Eos % (Auto) 0.4, Baso % (Auto) 0.1, Absolute Neuts (auto) 8.9 H, Absolute Lymphs (auto) 0.44 L, Nucleated RBC % 0, Differential Comment SCANNED, Platelet Estimate MOD DEC, Plt Morphology Comment LARGE, Anisocytosis 2+, Microcytosis 1+, Macrocytosis 1+ 01/25/21 12:42: PT 31.1 H, INR 3.0 Current Medications Sodium Chloride () 1,000 mls @ 150 mls/hr IV .Q6H40M TROY Last Admin: 01/25/21 13:50 Dose: 150 mls/hr Documented by: Vancomycin HCl 1,750 mg/ (Sodium Chloride) 535 mls @ 250 mls/hr IV X1 ONE Stop: 01/25/21 15:08 Assessment/Plan This is a 65 years old male patient presented to the emergency room because of increasing left leg erythema and swelling in the setting of chronic bilateral lower extremity lymphedema, diabetic nonhealing leg ulcers, found to have acute cellulitis with infected diabetic ulcers and also found to have GUALBERTO on CKD and hyperbilirubinemia. #1 acute on chronic/recurrent left lower extremity cellulitis/infected left leg diabetic ulcers: Without evidence of sepsis or severe sepsis. Lactic acid is elevated. Patient is afebrile, no tachycardia, no leukocytosis. Vital signs are stable. Plan: Admit to [facility] floor, telemetry, blood culture, wound culture, wound MRSA screen by PCR, start IV Zosyn and vancomycin, check ESR and CRP, x-rays of the left ankle, left foot and left tibia ordered, podiatry medicine consult, OxyIR as needed for pain, IV fluids, Tylenol as needed, repeat CBC and CMP tomorrow morning, PT OT evaluation and treatment. #2 acute kidney injury on top of stage III chronic kidney disease: Baseline creatinine has been around 1.3 to 1.7 mg/dL. Admission creatinine is 2.22. Several months ago, creatinine was up to 2.8 but went back down to 1.4 mg/dL. Plan: IV fluids, input output chart, hold nephrotoxic drugs, repeat CMP tomorrow morning. #3 jaundice/hyperbilirubinemia: Unclear etiology. Alk phos is chronically elevated. Could be due to chronic liver disease. Bilirubin is 3.2. Liver transaminases are normal. Patient denied any right upper quadrant abdominal pain. Plan: Liver and gallbladder ultrasound, check indirect bilirubin, lipase, IV fluids, repeat LFT tomorrow morning, check serum lipase. #4 chronic bilateral lower extremity lymphedema/nonhealing leg ulcers/history of right foot osteomyelitis: Status post amputation of the right second and third toe. Plan as above, wound care nurse consult. #5 type 2 diabetes mellitus: ADA diet, Accu-Cheks, insulin sliding scale, check hemoglobin A1c, continue glipizide, Lantus. #6 paroxysmal atrial fibrillation: Rate stable, continue atenolol for rate control and Coumadin for anticoagulation. #7 chronic systolic CHF: Clinically stable, compensated. Plan to hold Bumex and Aldactone for tonight, gentle IV fluid hydration, continue atenolol. #8 chronic COPD/chronic respiratory failure: On home oxygen at 3 L. Currently, he is on room air. Plan for albuterol as needed, DuoNeb every 6 hours, incentive spirometer. #9 peripheral vascular disease: Without history of prior interventions. He is on aspirin and Coumadin. #10 benign prostatic hypertrophy: Stable, continue Flomax. #12 chronic thrombocytopenia: Likely due to chronic liver disease. Patient had a history of alcohol abuse. Plan to monitor. #13 CODE STATUS: DNR CCA, no intubation. Discussed with the patient himself and his who is the power of employee benefits attorney. #14 DVT prophylaxis: INR is 3. This note was generated with [employer] dictation software. It may contain incorrect words, spelling, and punctuation that were not noted in checking the note before signing. Inpatient E&M: 89962 Init Hosp L3
[2021-01-25] MEDS: 0.9% Normal Saline 1,000 ML 75 ML IV (15:16)
[2021-01-25 15:32] LABS: Bilirubin, Direct 2.42 mg/dL (0.00-0.30); Lipase 73 U/L (73-393)
--- NOTE | 2021-01-25 15:52 | ADU_ITS ---
Reason For Study: PAD, NON-HEALING WOUNDS Right Velocities Left Velocities Ext. Iliac Artery, dist = 114.4 cm./sec. Ext Iliac Artery, dist = 96.0 cm./sec. Common Femoral Artery, mid = 74.6 cm./sec. Supf. Femoral Artery, mid = 42.9 cm./sec. Supf Femoral Artery, prox = 77.9 cm./sec. Common Iliac Artery, mid = 41.7 cm./sec. Supf Femoral Artery, mid = 99.4 cm./sec. Supf. Femoral Artery, prox = 53.9 cm./sec. Supf Femoral Artery, dist. = 68.7 cm./sec. Supf. Femoral Artery, dist = 46.5 cm./sec. Profunda Femoral Artery = 68.0 cm./sec. Profunda Femoral Artery = 154.3 cm./sec. Popliteal Artery, prox. = 48.1 cm./sec. Popliteal Artery, proximal, = 78.5 cm./sec. Popliteal Artery, mid = 61.0 cm./sec. Popliteal Artery, distal = 56.4 cm./sec. Popliteal Artery, dist = 69.7 cm./sec. Post Tibial Artery, dist. = 16.1 cm./sec. Post. Tibial Artery, prox = 32.9 cm./sec. Ant. Tibial Artery, distal = unable to obtain Post. Tibial Artery, mid = 33.6 cm./sec. cm./sec. Ant. Tibial Artery, dist = 63.0 cm./sec. Peroneal Artery,dist. = unable to obtain cm./sec. Peroneal Artery,dist = unable to obtain cm./sec. Procedure The exam was of poor technical quality due to patient was UNCOOPERATIVE and moving legs constantly.. Not all waveforms were obtained due to patient's uncooperative behavior. Exam performed portable in patient room. Interpretation Summary Limited exam. Right leg peroneal probably occluded but otherwise no stenosis and adequate flow. Left leg with diminished flow and diffiulty visualizing anterior tibial and peroneal. No obvious stenosis but decreased flow and may wish other means of evaluating. Ordering Physician: Jack Dotson Referring Physician: Hong Sparks Performed By: Avril Luciano, GIA, RVT
[2021-01-25 15:53] LABS: Hemoglobin A1c 6.5 % (3.8-5.6)
--- NOTE | 2021-01-25 15:54 | PCM.CONS.GEN ---
Reason for Consult Date of Consultation: 01/25/21 Reason for Consultation: Left foot infection History of Present Illness: The patient is a 65 year old gentleman with multiple medical problems including diabetes, PAD, tobacco dependence, anticoagulation, as well as chronic lower extremity ulcerations presented to the ER today for left foot infection. Patient's relates left 5th toe started to get red, swelling and not looking good for about a week now. She relates it has been worsening. She called us this morning, and we advised her to take patient to the ER. Patient was found to have elevated lactic acid, also jaundiced appearing. WBC normal. Patient had noninvasive lower extremity arterial studies recently bilateral lower extremity end of Dec 2020 and noted to be calcified and mild to moderate vascular disease. Patient continues to use tobacco despite medical advise to quit. He is well aware of the side effects tobacco causes. Patient relates his blood sugars have been doing well recently. Patient's relates she changes bandages to the chronic leg / foot ulcers daily. She relates right side ulcers have slowly been getting worse but no signs of infection. Patient afebrile. Patient has been admitted for IV antibiotics as well as further workup and treatment. Patient's creatinine is elevated, along with elevated alk phos. Patient does not walk, uses wheelchair. Past Medical History Past Medical History (Chronic Problems): Chronic Problems (Last Updated 01/25/21 @ 14:[address] Mellissa Fonseca MD) Open wound of left hand (Chronic) History of alcohol abuse (Chronic) Smoking addiction (Chronic) PAD (peripheral artery disease) (Chronic) 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) 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) Chronic systolic (congestive) heart failure (Chronic) Chronic kidney disease (Chronic) Dilated cardiomyopathy (Chronic) Nonrheumatic mitral (valve) insufficiency (Chronic) Paroxysmal atrial fibrillation (Chronic) CVA (cerebral vascular accident) (Chronic) Hyperlipidemia (Chronic) Essential (primary) hypertension (Chronic) Secondary pulmonary arterial hypertension (Chronic) Skin ulcer of right knee with fat layer exposed (Chronic) Skin ulcer of left knee with fat layer exposed (Chronic) 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 Anticipate Stage III or IV if excision done. Right ischial pressure sore, stage 2 (Chronic) at least a Stage II. Anticipate Stage III or IV if excision done. Pressure ulcer of sacral region, stage 2 (Chronic) at least a Stage II. Anticipate Stage III or IV if excision done. Vasculitis (Chronic) PVD (peripheral vascular disease) (Chronic) Anemia (Chronic) Cardiomyopathy (Chronic) 47 % EF in 2012 CVA, old, hemiparesis (Chronic) left side weakness....stroke in 2012 BPH (benign prostatic hyperplasia) (Chronic) Urinary incontinence (Chronic) Ulcer of right lower extremity with fat layer exposed (Chronic) 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) Osteomyelitis (Chronic) Malnutrition (Chronic) DM2 (diabetes mellitus, type 2) (Chronic) Depression (Chronic) Chronic low back pain (Chronic) Medical History: Medical History (Last Updated 01/25/21 @ 14:[address] Mellissa Fonseca MD) Chronic systolic (congestive) heart failure (Chronic) I50.22 Chronic kidney disease (Chronic) N18.9 Dilated cardiomyopathy (Chronic) I42.0 Nonrheumatic mitral (valve) insufficiency (Chronic) I34.0 Paroxysmal atrial fibrillation (Chronic) I48.0 CVA (cerebral vascular accident) (Chronic) I63.9 Hyperlipidemia (Chronic) E78.5 Essential (primary) hypertension (Chronic) I10 Secondary pulmonary arterial hypertension (Chronic) I27.21 Anemia (Chronic) D64.9 Cardiomyopathy (Chronic) I42.9 47 % EF in 2012 CVA, old, hemiparesis (Chronic) I69.359 left side weakness....stroke in 2012 DM2 (diabetes mellitus, type 2) (Chronic) E11.9 Osteomyelitis M86.9 Pulmonary HTN (Inactive) I27.20 PA systolic 51 in 2012 Allergies No Known Allergies Allergy (Verified 01/25/21 12:06) Home Medications: Ambulatory Orders Medication Instructions Recorded Aspirin [Adult Aspirin] 81 mg PO DAILY 06/07/18 Cholecalciferol (VIT D3) [Vitamin 1,000 unit PO DAILY 06/07/18 D3] Acetaminophen [Tylenol Tablet] 650 mg PO Q6H PRN PRN tablet 06/14/18 Tamsulosin HCl [Flomax] 0.4 mg PO DAILY@1730 capsule 06/14/18 Zinc Sulfate (50mg elemental) 220 mg PO DAILY capsule 06/14/18 [Zinc Sulfate] Famotidine 20 mg PO DAILY 08/05/18 Insulin Lispro [Humalog] See Protocol SQ 4X/DAY 08/05/18 Multivitamins,Ther W-Minerals 1 tablet PO DAILY 08/05/18 [Multivitamin With Minerals ([facility])] Paroxetine HCl [Paxil] 40 mg PO DAILY 08/05/18 Warfarin [Coumadin] 5 mg PO [id number] 08/05/18 glipiZIDE [Glucotrol] 10 mg PO DAILY@0730 08/05/18 Atenolol [Tenormin (beta dilia)] 50 mg PO DAILY tablet 08/10/18 Ferrous Sulfate 325 mg PO BIDCM tablet 08/10/18 Spironolactone 25 mg PO DAILY 06/29/19 Warfarin [Coumadin ([facility])] 2.5 mg PO TH 06/29/19 Gabapentin [Neurontin] 200 mg PO DAILY 08/09/19 Ascorbic Acid [Vitamin C] 500 mg PO DAILY 10/27/19 Insulin Glargine,Hum.rec.anlog 18 unit SQ DAILY 01/17/20 [Lantus] Bumetanide [Bumex] 1 mg PO DAILY 01/25/21 Levomefolate/B6/B12/Algal Oil 1 ea PO BID 01/25/21 [Metanx Capsule] Surgical History: Surgical History (Last Updated 09/28/18 @ 12:36 by Geraldine Steele) History of incision and drainage Z98.890 BLE Surgical History: tonsillectomy Psychiatric History: Depression Lives: Spouse/ Significant Other Smoking Status: Current every day smoker Tobacco Use: Cigarettes Alcohol: None Drugs: None - *Family History Paternal Family History: Family History (Last Updated 09/28/18 @ 12:35 by Geraldine Steele) Father Heart disease Mother CVA (cerebral vascular accident) History Items: Heart Disease - His father had atrial fibrillation and an AICD/pacemaker Maternal Family History: Family History (Last Updated 09/28/18 @ 12:35 by Geraldine Steele) Father Heart disease Mother CVA (cerebral vascular accident) History Items: Diabetes - His mother had severe diabetes mellitus and had amputations of her lower extremities. Review of Systems Constitutional: Denies: Chills, Fever Gastrointestinal: Denies: Nausea, Vomiting - Physical Exam Vitals/I&O's: Vital Signs Temp Pulse Resp BP Pulse Ox 97.4 F L 80 20 H 114/84 H 99 01/25/21 15:27 01/25/21 15:27 01/25/21 15:27 01/25/21 15:27 01/25/21 15:27 Oxygen Delivery Method Room Air Weight: 120.882 kg Body Mass Index (BMI) 34.2 Finger Stick Blood Glucose 155 Intake and Output for Last 24 Hours 01/23/21 01/24/21 01/25/21 23:59 23:59 23:59 Intake Total 324.5 / 324.5 Balance 324.5 / 324.5 General: Alert, Oriented x3, Cooperative, No apparent distress Cardiovascular: - - Pedal pulses intact at this time, but diminished - chronic bilateral- there is CFT to all toes bilateral but left 5th toe delayed CFT at site of necrosis. Diffuse edema bilateral lower extremity. Extremities: - - There is a bulla to medial left 5th toe filled with purulent fluid, there is necrosis present to the site as well, there is cellulitis to the left foot/ankle and extends to leg, there is no fluctuance or crepitus, no exposed bone. Skin: Ulcer/ Wound - Multiple chronic ulcerations to right foot/ankle/leg and to the left foot/ankle/leg down to subcutaneous and fascia layers - chronic without evidence of infection at this time., - - toenails thickened and dystrophic bilateral - chronic. There is noted to be a ulcer down to nail bed left 1st toe - tissues granular with no evidence of infection. Musculoskeletal: - Neurological: - - Significantly decreased sensation to the lower extremity - chronic. Laboratory Results 01/25/21 12:40: Lactic Acid 2.2 H* 01/25/21 12:42: Sodium 136, Potassium 4.6, Chloride 96 L, Carbon Dioxide 34.0 H, Anion Gap 6, BUN 63 H, Creatinine 2.12 H, Estim Creat Clear Calc 39.85, Est GFR (MDRD) Af Amer 40 L, Est GFR (MDRD) Non-Af 33 L, BUN/Creatinine Ratio 29.7 H, Glucose 174 H, Calcium 9.2, Total Bilirubin 3.20 H, AST 24, ALT 23, Alkaline Phosphatase 251 H, Total Protein 7.0, Albumin 2.7 L, Globulin 4.3 H, Albumin/Globulin Ratio 0.6 L 01/25/21 12:42: WBC 10.4, RBC 4.57 L, Hgb 14.0, Hct 47.4, MCV 103.7 H, MCH 30.6, MCHC 29.5 L, RDW Std Deviation 71.9 H, RDW Coeff of Iban 19.1 H, Plt Count 98 L, MPV 13.5 H, Immature Gran % (Auto) 0.500, Neut % (Auto) 86.3 H, Lymph % (Auto) 4.3 L, Dodge % (Auto) 8.4, Eos % (Auto) 0.4, Baso % (Auto) 0.1, Absolute Neuts (auto) 8.9 H, Absolute Lymphs (auto) 0.44 L, Nucleated RBC % 0, Differential Comment SCANNED, Platelet Estimate MOD DEC, Plt Morphology Comment LARGE, Anisocytosis 2+, Microcytosis 1+, Macrocytosis 1+ 01/25/21 12:42: PT 31.1 H, INR 3.0 01/25/21 12:42: Direct Bilirubin 2.42 H, Lipase 73 01/25/21 12:42: Hemoglobin A1c 6.5 H Current Medications Albuterol Sulfate (Albuterol 2.5 Mg/3 Ml Vial.Neb.) 2.5 mg INHALATION Q4H PRN PRN PRN Reason: Shortness of breath, wheezing Albuterol/Ipratropium (Ipratropium/Albuterol Sulfate 3 Ml Ampul.Neb) 3 ml INHALATION Q6H.RT [facility] Aspirin (Aspirin E.C. 81 Mg Tablet) 81 mg PO DAILYCM [facility] Atenolol (Atenolol 50 Mg Tablet) 50 mg PO DAILY [facility] Famotidine (Famotidine 20 Mg Tablet) 20 mg PO DAILY [facility] Ferrous Sulfate (Ferrous Sulfate 325 Mg Tablet) 325 mg PO BIDCM [facility] Gabapentin (Gabapentin 100 Mg Capsule) 200 mg PO DAILY [facility] Glipizide (Glipizide 10 Mg Tablet) 10 mg PO DAILY@0730 [facility] Sodium Chloride () 250 mls @ 15 mls/hr IV .[id number] PRN PRN Reason: Saline Flush Sodium Chloride () 250 mls @ 15 mls/hr IV .[id number] PRN PRN Reason: Additional IVPB Infusion Sodium Chloride () 1,000 mls @ 75 mls/hr IV .[id number] [facility] Stop: 01/26/21 04:24 Last Infusion: 01/25/21 15:18 Dose: 0 mls/hr Documented by: Piperacillin Sod/Tazobactam (Sod 3.375 gm/ Sodium Chloride) 50 mls @ 12.5 mls/hr IV Q8 [facility] Vancomycin IV Pharmacy to Dose (1 ea/ Sodium Chloride) 500 mls @ 250 mls/hr IV X1 PRN; Protocol PRN Reason: Rx to Dose Vancomycin HCl (Vancomycin) 1,000 mg in 200 mls @ 200 mls/hr IV Q12H [facility] Insulin Glargine (Insulin Glargine 100 Units/Ml Pen) 18 units SC DAILY [facility] Insulin Human Lispro (Insulin Lispro 100 Unit/Ml Insuln.Pen) 0 unit SC ACHS [facility]; Protocol Ondansetron HCl (Ondansetron 4 Mg/2 Ml Vial) 4 mg IV Q8H PRN PRN PRN Reason: NAUSEA/VOMITING Oxycodone HCl (Oxycodone 5 Mg Tablet) 5 mg PO Q4H PRN PRN PRN Reason: Pain Score 4-10 Paroxetine HCl (Paroxetine 20 Mg Tablet) 40 mg PO DAILY [facility] Senna/Docusate Sodium (Senna/Docusate Sodium 1 Tablet) 2 tablet PO BID PRN PRN PRN Reason: Constipation Sodium Chloride (0.9% Saline Lock 10 Ml Syringe) 10 - 40 ml IV UD PRN PRN Reason: SALINE FLUSH Tamsulosin HCl (Tamsulosin Hcl 0.4 Mg Capsule) 0.4 mg PO DAILY@1730 [facility] Warfarin Sodium (Warfarin 5 Mg Tablet) 5 mg PO SuMoTuWeFrSa@1700 [facility] Warfarin Sodium (Warfarin 2.5 Mg Tablet) 2.5 mg PO Th@1700 [facility] Zolpidem Tartrate (Zolpidem Tartrate 5 Mg Tablet) 5 mg PO QHS PRN PRN PRN Reason: INSOMNIA Assessment/Plan Left foot/ankle cellulitis with necrotic ulceration left 5th toe Chronic bilateral lower extremity ulcerations down to subcutaneous and fascia/tendon layers Diabetes with peripheral neuropathy Peripheral vascular disease - chronic Tobacco Dependence Other multiple comorbidities Reviewed chart. Left 5th toe with necrosis with overlying blister fill with some purulent material. The blister was reroofed and drained, the fluid was cultured. The base of the blister with necrotic tissue, down to subcutaneous tissue. The culture was sent to microbiology for further evaluation. There is no probe to bone or joint. Advised patient he will likely lose this toe. A consult was placed to Dr. Morgan from vascular surgery - I discussed with him. Arterial duplex of bilateral lower extremity was ordered. Patient may need further vascular intervention pending results. Left foot/ankle/leg xrays ordered. Patient has been started on IV antibiotics - Vanc and Zosyn at this time. Wound care bilateral lower extremity: Betadine to left 5th toe, and wet to dry Dakin's soln gauze to rest of wounds lower extremity. Change daily. Will monitor left 5th toe closely. Patient again advised tobacco cessation - reviewed rationale of this. Patient not interested in tobacco cessation and is well informed this is a risk factor that can lead to delayed healing, nonhealing, possible loss of limb, and/or premature . Reviewed importance of proper blood sugar control to help optimize healing as well. Podiatry will continue to follow closely, thank you for consultation.
[2021-01-25] MEDS: 0.9% Saline Lock 10 ML Syringe IV ×3 (15:59→21:06)
--- NOTE | 2021-01-25 16:07 | PCM.RX.CS ---
Consult Pharmacy has been consulted to manage selected antiobiotic: Vancomycin Type of Consult: New start Suspected Infection: Other - DIABETIC FOOT ULCERS Labs: Sodium 136 mmol/L (136-145) 01/25/21 12:42 Potassium 4.6 mmol/L (3.5-5.1) 01/25/21 12:42 Chloride 96 mmol/L (98-107) L 01/25/21 12:42 Carbon Dioxide 34.0 mmol/L (21.0-32.0) H 01/25/21 12:42 Anion Gap 6 (5-15) 01/25/21 12:42 BUN 63 mg/dL (7-18) H 01/25/21 12:42 Creatinine 2.12 mg/dL (0.70-1.30) H 01/25/21 12:42 Est GFR (MDRD) Af Amer 40 mL/min (>60) L 01/25/21 12:42 Est GFR (MDRD) Non-Af 33 mL/min (>60) L 01/25/21 12:42 BUN/Creatinine Ratio 29.7 RATIO (10-20) H 01/25/21 12:42 Glucose 174 mg/dL (74-106) H 01/25/21 12:42 Goal Trough: 15-20 mcg/mL Pharmacy Plan for Drug Dosing: NEW START IV VANCOMYCIN Consulting Physician: EDDIE Indication: DIABETIC FOOT ULCER Goal Trough: 15-20 MG/DL SrCr: 2.12 CrCl: 47 ML/MIN (USING ADJ BW OF 97.6KG) Comments: ED DOSE OF 1750MG GIVEN 01/25 @ 1511 Vancomycin Dose: 1000MG Q12H STARTING 01/26 @ 0300. TROUGH PRIOR TO 4TH TOTAL DOSE. Pharmacy Service will continue to monitor and adjust dosing as required. Labs to be done on [date and time ordered]: 01/27/21 @ 0230
--- NOTE | 2021-01-25 16:10 | RAD_ITS ---
STUDY: X-RAY - LEFT ANKLE REASON FOR EXAM: Male, 65 years old. infection TECHNIQUE: 3 view(s) of the ankle. COMPARISON: None. FINDINGS: Normal visualized distal tibia and fibula. Normal medial and lateral malleoli. Normal tibiotalar articulation and ankle mortise. Small calcaneal spur. The visualized subtalar, talonavicular, calcaneocuboid and tarsal articulations are normal. Diffuse soft tissue swelling with ulcer/defect of the lower posterior leg. RAD/Ankle min 3 Views IMPRESSION: Diffuse soft tissue swelling with ulcer/defect of the lower posterior leg. No destructive bony process. Electronically Signed: Elvis Veras MD ([place]) at 16:30 EST , Service support ,
[2021-01-25] MEDS: Gabapentin 100 MG Capsule 200 MG PO (16:38)
[2021-01-25] MEDS: Tamsulosin HCl 0.4 MG Capsule PO (16:38)
[2021-01-25] MEDS: Ferrous Sulfate 325 MG Tablet PO ×2 (16:38)
[2021-01-25 16:50] LABS: Reflex Lactate? Y
[2021-01-25 17:31] LABS: Bedside Glucose 142 mg/dL (70-110)
[2021-01-25 17:44] LABS: M R Staph aureus DNA By PCR Negative (Negative); Probe Check PASS; Specimen Processing Control PASS; Staph aureus DNA By PCR POSITIVE (Negative)
[2021-01-25 18:14] LABS: Lactic Acid 2.3 mmol/L (0.4-1.9)
[2021-01-25] MEDS: Ipratropium/Albuterol Sulfate 3 ML AMPUL.NEB INHALATION (20:08)
--- NOTE | 2021-01-25 20:30 | CPS ---
Difficulty getting a pulse ox reading on pts finger or ear. A forehead pulse ox was applied and worked well. Pts sats in the 80's and pt breathing through mouth often on NC. Pt switched to 24% venti mask and sats increased into the 90's.
[2021-01-25] MEDS: oxyCODONE 5 MG Tablet PO (21:07)
[2021-01-25] MEDS: Zolpidem Tartrate 5 MG Tablet PO (21:07)
[2021-01-25] MEDS: Atenolol 50 MG Tablet PO (21:08)
[2021-01-25 21:30] LABS: Bedside Glucose 122 mg/dL (70-110)
--- NOTE | 2021-01-25 23:25 | NURSING ---
pt restless in bed kicking his left leg over rail and out bottom of bed, pillows placed but pt pulled out, pulling off his O2 mask, taking off his tele tried giving pt reassurance, reorientation, redirection, fed a snack and drink, had pain med and sleeping med, repositioned, attends changed. pt states he drinks alcohol daily but cant tell staff how much. moved to room 324 to be closer to nursing station for safety
[2021-01-26] VITALS (18 sets, daily range): BP systolic 110–137; BP diastolic 55–92; PULSE 88–116; RESP 16–24; TEMP 35.6–37.1; O2SAT 93–100
[2021-01-26] MEDS: Menthol/Lanolin/Calamine/Znox 113 GM Tube 1 APPLIC TOPICAL ×3 (00:06→22:52)
[2021-01-26] MEDS: Nystatin Powder 15gm Bottle 1 APPLIC TOPICAL ×3 (00:07→22:53)
[2021-01-26] MEDS: Ipratropium/Albuterol Sulfate 3 ML AMPUL.NEB INHALATION ×4 (01:47→20:03)
[2021-01-26] MEDS: Vancomycin IV 1,000 MG/200 ML BAG 200 MG IV ×2 (02:44→13:01)
[2021-01-26 06:24] LABS: Absolute Lymphocyte Count 0.67 X10^3/uL (0.83-4.51); Absolute Neutrophil Count 9.6 X10^3/uL (2.0-7.7); Basophil# 0.03 X10^3/uL; Basophil% 0.3 % (0-1); Eosinophil# 0.04 X10^3/uL; Eosinophils% 0.3 % (0-5); Hematocrit 45.4 % (40-54); Hemoglobin 13.5 g/dL (13.0-16.5); Lymphocyte # 0.67 X10^3/ul (4.0); Lymphocyte % 5.7 % (19-41); Mean Corp Hgb Conc 29.7 g/dL (32-36); Mean Corpuscular Hgb 30.5 pg (27.0-32.0); Mean Corpuscular Volume 102.7 fL (80-94); Mean Platelet Vol. 12.7 fl (6.2-12.0); Monocyte# 1.25 X10^3/uL; Monocyte% 10.7 % (0-10); NRBC Flagged by Analyzer 0 % (0-5); Neutrophil # 9.61 X10^3/uL (2.7-7.7); Neutrophil % 82.4 % (47-70); POSITIVE COUNT YES; POSITIVE MORPHOLOGY YES; Platelet Count 89 K/mm3 (150-450); RBC Distribution Width CV 18.7 % (11.6-14.6); Red Blood Count 4.42 M/mm3 (4.6-6.2); White Blood Count 11.7 K/mm3 (4.4-11.0)
[2021-01-26 06:26] LABS: Bedside Glucose 82 mg/dL (70-110)
[2021-01-26 06:31] LABS: Prothrombin Time (Protime)PT. 34.7 SECONDS (11.7-14.9)
[2021-01-26 06:32] LABS: Differential Indicated SCAN CRITERIA MET
[2021-01-26 06:33] LABS: International Normalized Ratio 3.5
[2021-01-26 06:54] LABS: ALB/GLOB Ratio 0.6 RATIO (0.9-2.4); AST(SGOT) 126 U/L (15-37); Alanine Aminotransfer ALT/SGPT 72 U/L (16-61); Albumin, Serum 2.5 g/dL (3.2-5.0); Alkaline Phosphatase 238 U/L (45-117); Anion Gap 8 (5-15); BUN 65 mg/dL (7-18); BUN/Creat Ratio 29.4 RATIO (10-20); Calcium,Total 8.6 mg/dL (8.5-10.1); Chloride 99 mmol/L (98-107); Creatinine, Serum 2.21 mg/dL (0.70-1.30); EST Glomerular Filtration Rate 32 mL/min (>60); Est Glom Filt Rate - Afr Amer 38 mL/min (>60); Estimated Creatinine Clearance 38.23 ml/min; Globulin 3.9 g/dL (2.2-4.2); Glucose 99 mg/dL (74-106); Potassium 5.2 mmol/L (3.5-5.1); Protein, Total 6.4 g/dL (6.4-8.2); Sodium Level 137 mmol/L (136-145)
--- NOTE | 2021-01-26 07:18 | RAD_ITS ---
STUDY: X-RAY CHEST REASON FOR EXAM: Male, 65 years old. Shortness of breath TECHNIQUE: Single AP portable view of the chest. COMPARISON: 08/08/2018 FINDINGS: The lungs are clear and expanded. Elevated right hemidiaphragm which is unchanged. There is moderate cardiac enlargement. Normal mediastinum and clifford. Normal visualized pulmonary arteries. Normal visualized aortic arch and descending thoracic aorta. Normal visualized thoracic spine. Normal visualized ribs, clavicles, and shoulders. There is no demonstrated abnormality of the visualized soft tissue structures of the upper abdomen. RAD/Chest 1 View (Portable) IMPRESSION: No active disease. Electronically Signed: Cristo Hart MD at 8:31 EST Tel , Service support ,
--- NOTE | 2021-01-26 08:43 | PCM.PROGNOTE ---
Subjective: Chief complaint: Follow-up after admission for left lower extremity cellulitis/infected left leg diabetic ulcers/left fifth toe necrosis, GUALBERTO on CKD and hyperbilirubinemia. Patient seen and examined. No acute events overnight. This morning, patient is sleepy and lethargic but arousable. He is on Ventimask. When he woke up, he denied any shortness of breath. I came back later to check on the patient. He was awake and alert, oriented to self and to the place but disoriented to time. ABG done and showed pH of 7.40, PCO2 of 45 and PO2 of 73. Currently, he is on 2 L. He is at 3 L at baseline. Other vital signs are stable. - Physical Exam Vitals/I&O's: Vital Signs Temp Pulse Resp BP Pulse Ox 96.9 F L 111 H 18 121/89 H 97 01/26/21 02:50 01/26/21 07:44 01/26/21 07:44 01/26/21 02:50 01/26/21 07:44 Oxygen Flow Rate (L/min) 2 Oxygen Delivery Method Venturi Mask Weight: 266 lb 8 oz Body Mass Index (BMI) 34.2 Finger Stick Blood Glucose 155 Intake and Output for Last 24 Hours 01/24/21 01/25/21 01/26/21 23:59 23:59 23:59 Intake Total 1388.25 / 1388.25 1096.50 / 1096.50 Balance 1388.25 / 1388.25 1096.50 / 1096.50 General: Alert, Cooperative, Disoriented, - - Minimally short of breath. HEENT: Atraumatic, PERRLA, EOMI, Normocephalic Oral: Moist Mucosa, No Gingival or Mucosal Lesions/ Ulcerations Neck: Supple, No JVD, Negative Carotid Bruits, Trachea Midline, Thyroid Normal Size and Texture Lungs: Clear to auscultation, No rhonchi, No wheeze, No rales, Diminished Cardiovascular: Regular rate, Regular Rhythm, Normal S1, Normal S2, PMI Normal Abdomen: Bowel Sounds Present, Soft, Non Tender, Non-Distended, No Hepato-splenomegaly, Obese Extremities: No clubbing, No cyanosis, Edema, - - Multiple left leg ulcers on the medial aspect, left fifth toe necrosis. Skin: No rashes, Ulcer/ Wound Lymphatic: No Cervical, Supraclavicular, or Inguinal Adenopathy Neurological: Cranial nerves II-XII grossly intact, Neuro grossly intact Psych/Mental Status: Flat Affect Laboratory Results 01/25/21 12:40: Lactic Acid 2.2 H* 01/25/21 12:42: Sodium 136, Potassium 4.6, Chloride 96 L, Carbon Dioxide 34.0 H, Anion Gap 6, BUN 63 H, Creatinine 2.12 H, Estim Creat Clear Calc 39.85, Est GFR (MDRD) Af Amer 40 L, Est GFR (MDRD) Non-Af 33 L, BUN/Creatinine Ratio 29.7 H, Glucose 174 H, Calcium 9.2, Total Bilirubin 3.20 H, AST 24, ALT 23, Alkaline Phosphatase 251 H, Total Protein 7.0, Albumin 2.7 L, Globulin 4.3 H, Albumin/Globulin Ratio 0.6 L 01/25/21 12:42: WBC 10.4, RBC 4.57 L, Hgb 14.0, Hct 47.4, MCV 103.7 H, MCH 30.6, MCHC 29.5 L, RDW Std Deviation 71.9 H, RDW Coeff of Iban 19.1 H, Plt Count 98 L, MPV 13.5 H, Immature Gran % (Auto) 0.500, Neut % (Auto) 86.3 H, Lymph % (Auto) 4.3 L, Sutter % (Auto) 8.4, Eos % (Auto) 0.4, Baso % (Auto) 0.1, Absolute Neuts (auto) 8.9 H, Absolute Lymphs (auto) 0.44 L, Nucleated RBC % 0, Differential Comment SCANNED, Platelet Estimate MOD DEC, Plt Morphology Comment LARGE, Anisocytosis 2+, Microcytosis 1+, Macrocytosis 1+ 01/25/21 12:42: PT 31.1 H, INR 3.0 01/25/21 12:42: Direct Bilirubin 2.42 H, Lipase 73 01/25/21 12:42: Hemoglobin A1c 6.5 H 01/25/21 16:00: S.aureus Protein A PCR POSITIVE H, MRSA (PCR) Negative 01/25/21 16:34: POC Glucose 142 H 01/25/21 17:26: Lactic Acid 2.3 H* 01/25/21 21:22: POC Glucose 122 H 01/26/21 05:57: WBC 11.7 H, RBC 4.42 L, Hgb 13.5, Hct 45.4, MCV 102.7 H, MCH 30.5, MCHC 29.7 L, RDW Std Deviation 71.0 H, RDW Coeff of Iban 18.7 H, Plt Count 89 L, MPV 12.7 H, Immature Gran % (Auto) 0.600, Neut % (Auto) 82.4 H, Lymph % (Auto) 5.7 L, Sutter % (Auto) 10.7 H, Eos % (Auto) 0.3, Baso % (Auto) 0.3, Absolute Neuts (auto) 9.6 H, Absolute Lymphs (auto) 0.67 L, Nucleated RBC % 0 01/26/21 05:57: PT 34.7 H, INR 3.5 H* 01/26/21 05:57: Sodium 137, Potassium 5.2 H, Chloride 99, Carbon Dioxide 30.0, Anion Gap 8, BUN 65 H, Creatinine 2.21 H, Estim Creat Clear Calc 38.23, Est GFR (MDRD) Af Amer 38 L, Est GFR (MDRD) Non-Af 32 L, BUN/Creatinine Ratio 29.4 H, Glucose 99, Calcium 8.6, Total Bilirubin 3.70 H, AST 126 H, ALT 72 H, Alkaline Phosphatase 238 H, Total Protein 6.4, Albumin 2.5 L, Globulin 3.9, Albumin/Globulin Ratio 0.6 L 01/26/21 06:12: POC Glucose 82 Current Medications Albuterol Sulfate (Albuterol 2.5 Mg/3 Ml Vial.Neb.) 2.5 mg INHALATION Q4H PRN PRN PRN Reason: Shortness of breath, wheezing Albuterol/Ipratropium (Ipratropium/Albuterol Sulfate 3 Ml Ampul.Neb) 3 ml INHALATION Q6H.RT TROY Last Admin: 01/26/21 07:44 Dose: 3 ml Documented by: Aspirin (Aspirin E.C. 81 Mg Tablet) [facility] Aten[facility]ol (Atenolol 50 Mg Tablet) 50 mg PO DAILY [facility] Last Admin: 01/25/21 21:08 Dose: 50 mg Documented by: Calamine/Phenol (Menthol/Lanolin/Calamine/Znox 113 Gm Tube) 1 applic TOPICAL BID [facility]; Protocol Last Admin: 01/26/21 00:06 Dose: 1 applicatio Documented by: Famotidine (Famotidine 20 Mg Tablet) 20 mg PO DAILY [facility] Ferrous Sulfate (Ferrous Sulfate 325 Mg Tablet) 325 mg PO BIDCM [facility] Last Admin: 01/25/21 16:38 Dose: 325 mg Documented by: Gabapentin (Gabapentin 100 Mg Capsule) 200 mg PO DAILY [facility] Last Admin: 01/25/21 16:38 Dose: 200 mg Documented by: Glipizide (Glipizide 10 Mg Tablet) 10 mg PO DAILY@0730 [facility] Sodium Chloride () 250 mls @ 15 mls/hr IV .[id number] PRN PRN Reason: Saline Flush Last Infusion: 01/26/21 02:53 Dose: 0 mls/hr Documented by: Sodium Chloride () 250 mls @ 15 mls/hr IV .[id number] PRN PRN Reason: Additional IVPB Infusion Piperacillin Sod/Tazobactam (Sod 3.375 gm/ Sodium Chloride) 50 mls @ 12.5 mls/hr IV Q8 [facility] Last Admin: 01/26/21 04:58 Dose: 12.5 mls/hr Documented by: Vancomycin IV Pharmacy to Dose (1 ea/ Sodium Chloride) 500 mls @ 250 mls/hr IV X1 PRN; Protocol PRN Reason: Rx to Dose Vancomycin HCl (Vancomycin) 1,000 mg in 200 mls @ 200 mls/hr IV Q12H [facility] Last Infusion: 01/26/21 03:44 Dose: Infused Documented by: Influenza Virus Vaccine Quadrival (Influenza Vaccine (6mos+)/Pf 0.5 Ml Syringe) 0.5 ml IM .ONCE ONE Stop: 01/26/21 10:01 Insulin Glargine (Insulin Glargine 100 Units/Ml Pen) 18 units SC DAILY [facility] Insulin Human Lispro (Insulin Lispro 100 Unit/Ml Insuln.Pen) 0 unit SC ACHS [facility]; Protocol Last Admin: 01/26/21 06:47 Dose: Not Given Documented by: Nutritional Formula (Lactose Free) (Glucerna Shake 120 Ml Liquid) 120 ml PO 4X/DAY [facility] Nystatin (Nystatin Powder 15gm Bottle) 1 applic TOPICAL BID [facility]; Protocol Last Admin: 01/26/21 00:07 Dose: 1 applicatio Documented by: Ondansetron HCl (Ondansetron 4 Mg/2 Ml Vial) 4 mg IV Q8H PRN PRN PRN Reason: NAUSEA/VOMITING Oxycodone HCl (Oxycodone 5 Mg Tablet) 5 mg PO Q4H PRN PRN PRN Reason: Pain Score 4-10 Last Admin: 01/25/21 21:07 Dose: 5 mg Documented by: Paroxetine HCl (Paroxetine 20 Mg Tablet) 40 mg PO DAILY [facility] Senna/Docusate Sodium (Senna/Docusate Sodium 1 Tablet) 2 tablet PO BID PRN PRN PRN Reason: Constipation Sodium Chloride (0.9% Saline Lock 10 Ml Syringe) 10 - 40 ml IV UD PRN PRN Reason: SALINE FLUSH Last Admin: 01/25/21 21:06 Dose: 10 ml Documented by: Sodium Hypochlorite (Dakin's Eleni Half Strength (=0.25%)) 1 applic TOPICAL DAILY [facility]; Protocol Tamsulosin HCl (Tamsulosin Hcl 0.4 Mg Capsule) 0.4 mg PO DAILY@1730 [facility] Last Admin: 01/25/21 16:38 Dose: 0.4 mg Documented by: Zolpidem Tartrate (Zolpidem Tartrate 5 Mg Tablet) 5 mg PO QHS PRN PRN PRN Reason: INSOMNIA Last Admin: 01/25/21 21:07 Dose: 5 mg Documented by: Medical Necessity - Tobacco Use Smoking Status: Current every day smoker Tobacco Use: Cigarettes Assessment/Plan This is a 65 years old male patient presented to the emergency room because of increasing left leg erythema and swelling in the setting of chronic bilateral lower extremity lymphedema, diabetic nonhealing leg ulcers, found to have acute cellulitis with infected diabetic ulcers and also found to have GUALBERTO on CKD and hyperbilirubinemia. #1 acute on chronic/recurrent left lower extremity cellulitis/infected left leg diabetic ulcers/left fifth toe necrosis: He is on IV vancomycin and Zosyn. He has been afebrile, WBC is trending up. No evidence of sepsis or severe sepsis. Lactic acid is elevated. Blood culture revealed gram-positive cocci in 1 bottle, final is pending. Podiatry medicine consulted, appreciate recommendations which was reviewed. Plan: Continue same treatment, repeat CBC and CMP tomorrow morning, infectious disease consult. #2 Gram-positive bacteremia: This was seen on 1 bottle. Likely due to the chronic infected leg ulcers. Patient is on IV vancomycin and Zosyn as above. Plan: Consult ID. #3 acute kidney injury on top of stage III chronic kidney disease: Baseline creatinine has been around 1.3 to 1.7 mg/dL. Creatinine today is 2.21, minimally elevated compared to yesterday. Patient was on IV fluids, required more oxygen. IV fluids continued. Repeat chest x-ray today reviewed, was unremarkable. He was given 1 dose of IV Lasix. Plan to repeat CMP tomorrow morning. #4 jaundice/hyperbilirubinemia: Unclear etiology. Bilirubin is trending, liver transaminases also start to go up. Could be due to chronic liver disease. Bilirubin is 3.2. Liver transaminases are normal. Patient denied any right upper quadrant abdominal pain. Ultrasound liver and gallbladder ordered. Plan: CT scan abdomen and pelvis without contrast today. #5 chronic bilateral lower extremity lymphedema/nonhealing leg ulcers/history of right foot osteomyelitis: Status post amputation of the right second and third toe. Plan as above, wound care nurse consult. #6 type 2 diabetes mellitus: Blood sugar has been stable. Hemoglobin A1c was 6.5%. Continue ADA diet, Accu-Cheks, insulin sliding scale, glipizide and Lantus insulin. #7 paroxysmal atrial fibrillation: Rate stable, continue atenolol for rate. INR today is 3.5. Plan to hold Coumadin tonight, repeat INR tomorrow morning. #8 chronic systolic CHF: Clinically stable, compensated. Repeat chest x-ray today reviewed, was unremarkable. Patient was on IV fluids, discontinued. He was given 1 dose of IV Lasix today. I will keep holding Bumex and Aldactone tonight, continue atenolol, repeat BMP tomorrow morning. #9 chronic COPD/chronic respiratory failure: On home oxygen at 3 L. Overnight, required oxygen with Ventimask. This morning, he is back to his baseline at 2 to 3 L. ABG reviewed as above. Continue DuoNeb and albuterol. #10 peripheral vascular disease: Without history of prior interventions. He is on aspirin and Coumadin. Vascular surgery was consulted. #11 benign prostatic hypertrophy: Stable, continue Flomax. #12 chronic thrombocytopenia: Likely due to chronic liver disease. Patient had a history of alcohol abuse. Plan to monitor. #13 CODE STATUS: DNR CCA, no intubation. Discussed with the patient himself and his who is the power of preventive maintenance coordinator. #14 DVT prophylaxis: INR is 3.5. This note was generated with [email or web address] dictation software. It may contain incorrect words, spelling, and punctuation that were not noted in checking the note before signing. Inpatient E&M: 48101 Subs Hosp L2
[2021-01-26 08:57] LABS: Base Excess 4 mmol/L (-2 to +2); Bicarbonate 28.3 mmol/L (22-26); Blood Gas Specimen Type ART; FI02 24; O2 Delivery Device Venti Mask; PO2 73 mmHG (75-100); SITE L Radial; SO2 94 % (95-99); Total Carbon Dioxide 30 mmol/L; pCO2 45.2 mmHg (35-45)
--- NOTE | 2021-01-26 09:02 | PCM.PROGNOTE ---
Subjective: This 65-year-old male with multiple comorbidities was seen bedside this morning for bilateral lower extremity chronic ulcers with recent right fifth toe wound infection, and bilateral deteriorating ulcer sites. He denies fever, chill, nausea, vomiting. He was just seen by respiratory therapy and appears to be sleepy during the exam. He is arousable and able to participate in the exam this morning. - Physical Exam Vitals/I&O's: Vital Signs Temp Pulse Resp BP Pulse Ox 96.9 F L 111 H 18 121/89 H 97 01/26/21 02:50 01/26/21 07:44 01/26/21 07:44 01/26/21 02:50 01/26/21 07:44 Oxygen Flow Rate (L/min) 2 Oxygen Delivery Method Venturi Mask Weight: 120.882 kg Body Mass Index (BMI) 34.2 Finger Stick Blood Glucose 155 Intake and Output for Last 24 Hours 01/24/21 01/25/21 01/26/21 23:59 23:59 23:59 Intake Total 1388.25 / 1388.25 1096.50 / 1096.50 Balance 1388.25 / 1388.25 1096.50 / 1096.50 General: Alert, Oriented x3, Cooperative HEENT: Atraumatic Extremities: No cyanosis, Capillary Refill Less than 3 Seconds, Diminished Peripheral Pulses, Edema - Mild bilateral lower extremities, Tenderness - Ulcer manipulation bilateral lower extremities, - - Compartments are soft to palpate and there is no bogginess or fluctuance or skin tenting bilateral lower extremities. Skin: Ulcer/ Wound - Deteriorating bilateral posterior leg ulcer sites with fibrous and tendon tissue exposed. Eschar progression to anterior left leg ulcers. Dry gangrene with no longer any purulence to left medial fifth toe and this appears cyanotic. Right foot ulcers appear stable and granular and dry, - - There is no purulence or deep probing to bone bilateral lower extremities. His skin is atrophic and hairless. He does have rubour (versus erythema, no calor) noted on dependency seen when his legs are dangling during the exam at this time. There is no streaking Musculoskeletal: Muscle Wasting Neurological: - - Altered sensation to light touch Psych/Mental Status: Normal Affect, Appropriate Laboratory Results 01/25/21 12:40: Lactic Acid 2.2 H* 01/25/21 12:42: Sodium 136, Potassium 4.6, Chloride 96 L, Carbon Dioxide 34.0 H, Anion Gap 6, BUN 63 H, Creatinine 2.12 H, Estim Creat Clear Calc 39.85, Est GFR (MDRD) Af Amer 40 L, Est GFR (MDRD) Non-Af 33 L, BUN/Creatinine Ratio 29.7 H, Glucose 174 H, Calcium 9.2, Total Bilirubin 3.20 H, AST 24, ALT 23, Alkaline Phosphatase 251 H, Total Protein 7.0, Albumin 2.7 L, Globulin 4.3 H, Albumin/Globulin Ratio 0.6 L 01/25/21 12:42: WBC 10.4, RBC 4.57 L, Hgb 14.0, Hct 47.4, MCV 103.7 H, MCH 30.6, MCHC 29.5 L, RDW Std Deviation 71.9 H, RDW Coeff of Iban 19.1 H, Plt Count 98 L, MPV 13.5 H, Immature Gran % (Auto) 0.500, Neut % (Auto) 86.3 H, Lymph % (Auto) 4.3 L, Humphreys % (Auto) 8.4, Eos % (Auto) 0.4, Baso % (Auto) 0.1, Absolute Neuts (auto) 8.9 H, Absolute Lymphs (auto) 0.44 L, Nucleated RBC % 0, Differential Comment SCANNED, Platelet Estimate MOD DEC, Plt Morphology Comment LARGE, Anisocytosis 2+, Microcytosis 1+, Macrocytosis 1+ 01/25/21 12:42: PT 31.1 H, INR 3.0 01/25/21 12:42: Direct Bilirubin 2.42 H, Lipase 73 01/25/21 12:42: Hemoglobin A1c 6.5 H 01/25/21 16:00: S.aureus Protein A PCR POSITIVE H, MRSA (PCR) Negative 01/25/21 16:34: POC Glucose 142 H 01/25/21 17:26: Lactic Acid 2.3 H* 01/25/21 21:22: POC Glucose 122 H 01/26/21 05:57: WBC 11.7 H, RBC 4.42 L, Hgb 13.5, Hct 45.4, MCV 102.7 H, MCH 30.5, MCHC 29.7 L, RDW Std Deviation 71.0 H, RDW Coeff of Iban 18.7 H, Plt Count 89 L, MPV 12.7 H, Immature Gran % (Auto) 0.600, Neut % (Auto) 82.4 H, Lymph % (Auto) 5.7 L, Humphreys % (Auto) 10.7 H, Eos % (Auto) 0.3, Baso % (Auto) 0.3, Absolute Neuts (auto) 9.6 H, Absolute Lymphs (auto) 0.67 L, Nucleated RBC % 0 01/26/21 05:57: PT 34.7 H, INR 3.5 H* 01/26/21 05:57: Sodium 137, Potassium 5.2 H, Chloride 99, Carbon Dioxide 30.0, Anion Gap 8, BUN 65 H, Creatinine 2.21 H, Estim Creat Clear Calc 38.23, Est GFR (MDRD) Af Amer 38 L, Est GFR (MDRD) Non-Af 32 L, BUN/Creatinine Ratio 29.4 H, Glucose 99, Calcium 8.6, Total Bilirubin 3.70 H, AST 126 H, ALT 72 H, Alkaline Phosphatase 238 H, Total Protein 6.4, Albumin 2.5 L, Globulin 3.9, Albumin/Globulin Ratio 0.6 L 01/26/21 06:12: POC Glucose 82 01/26/21 08:48: Specimen Type ART, Sample Site L Radial, pH 7.40, Bicarbonate Actual 28.3 H, Total CO2 30, Base Excess 4 H, O2 Saturation 94 L, O2 % 24, ABG pCO2 45.2 H, ABG pO2 73 L, O2 Delivery Device Venti Mask Current Medications Albuterol Sulfate (Albuterol 2.5 Mg/3 Ml Vial.Neb.) 2.5 mg INHALATION Q4H PRN PRN PRN Reason: Shortness of breath, wheezing Albuterol/Ipratropium (Ipratropium/Albuterol Sulfate 3 Ml Ampul.Neb) 3 ml INHALATION Q6H.RT TROY Last Admin: 01/26/21 07:44 Dose: 3 ml Documented by: Aspirin (Aspirin E.C. 81 Mg Tablet) [facility] Atenolol (Atenolol 50 Mg Tablet) 50 mg PO DAILY [facility] Last Admin: 01/25/21 21:08 Dose: 50 mg Documented by: Calamine/Phenol (Menthol/Lanolin/Calamine/Znox 113 Gm Tube) 1 applic TOPICAL BID [facility]; Protocol Last Admin: 01/26/21 00:06 Dose: 1 applicatio Documented by: Famotidine (Famotidine 20 Mg Tablet) 20 mg PO DAILY [facility] Ferrous Sulfate (Ferrous Sulfate 325 Mg Tablet) 325 mg PO BIDCM [facility] Last Admin: 01/25/21 16:38 Dose: 325 mg Documented by: Gabapentin (Gabapentin 100 Mg Capsule) 200 mg PO DAILY [facility] Last Admin: 01/25/21 16:38 Dose: 200 mg Documented by: Glipizide (Glipizide 10 Mg Tablet) 10 mg PO DAILY@30 [facility] Sodium Chloride () 250 mls @ 15 mls/hr IV .[id number] PRN PRN Reason: Saline Flush Last Infusion: 01/26/21 02:53 Dose: 0 mls/hr Documented by: Sodium Chloride () 250 mls @ 15 mls/hr IV .[id number] PRN PRN Reason: Additional IVPB Infusion Piperacillin Sod/Tazobactam (Sod 3.375 gm/ Sodium Chloride) 50 mls @ 12.5 mls/hr IV Q8 [facility] Last Admin: 01/26/21 04:58 Dose: 12.5 mls/hr Documented by: Vancomycin IV Pharmacy to Dose (1 ea/ Sodium Chloride) 500 mls @ 250 mls/hr IV X1 PRN; Protocol PRN Reason: Rx to Dose Vancomycin HCl (Vancomycin) 1,000 mg in 200 mls @ 200 mls/hr IV Q12H [facility] Last Infusion: 01/26/21 03:44 Dose: Infused Documented by: Influenza Virus Vaccine Quadrival (Influenza Vaccine (6mos+)/Pf 0.5 Ml Syringe) 0.5 ml IM .ONCE ONE Stop: 01/26/21 10:01 Insulin Glargine (Insulin Glargine 100 Units/Ml Pen) 18 units SC DAILY [facility] Insulin Human Lispro (Insulin Lispro 100 Unit/Ml Insuln.Pen) 0 unit SC ACHS [facility]; Protocol Last Admin: 01/26/21 06:47 Dose: Not Given Documented by: Nutritional Formula (Lactose Free) (Glucerna Shake 120 Ml Liquid) 120 ml PO 4X/DAY [facility] Nystatin (Nystatin Powder 15gm Bottle) 1 applic TOPICAL BID [facility]; Protocol Last Admin: 01/26/21 00:07 Dose: 1 applicatio Documented by: Ondansetron HCl (Ondansetron 4 Mg/2 Ml Vial) 4 mg IV Q8H PRN PRN PRN Reason: NAUSEA/VOMITING Oxycodone HCl (Oxycodone 5 Mg Tablet) 5 mg PO Q4H PRN PRN PRN Reason: Pain Score 4-10 Last Admin: 01/25/21 21:07 Dose: 5 mg Documented by: Paroxetine HCl (Paroxetine 20 Mg Tablet) 40 mg PO DAILY [facility] Senna/Docusate Sodium (Senna/Docusate Sodium 1 Tablet) 2 tablet PO BID PRN PRN PRN Reason: Constipation Sodium Chloride (0.9% Saline Lock 10 Ml Syringe) 10 - 40 ml IV UD PRN PRN Reason: SALINE FLUSH Last Admin: 01/25/21 21:06 Dose: 10 ml Documented by: Sodium Hypochlorite (Dakin's Eleni Half Strength (=0.25%)) 1 applic TOPICAL DAILY [facility]; Protocol Tamsulosin HCl (Tamsulosin Hcl 0.4 Mg Capsule) 0.4 mg PO DAILY@1730 [facility] Last Admin: 01/25/21 16:38 Dose: 0.4 mg Documented by: Zolpidem Tartrate (Zolpidem Tartrate 5 Mg Tablet) 5 mg PO QHS PRN PRN PRN Reason: INSOMNIA Last Admin: 01/25/21 21:07 Dose: 5 mg Documented by: Medical Necessity - Tobacco Use Smoking Status: Current every day smoker Tobacco Use: Cigarettes Assessment/Plan Left foot/ankle cellulitis with necrotic ulceration left 5th toe Chronic bilateral lower extremity ulcerations down to subcutaneous and fascia/tendon layers; including continued deterioration to bilateral posterior leg ulcer sites and exposed Achilles compared to last wound center visit Diabetes with peripheral neuropathy Peripheral vascular disease - chronic Tobacco Dependence Other multiple comorbidities: Atrial fibrillation, acute on chronic kidney disease, jaundice, thrombocytopenia, congestive heart failure, delayed healing, malnutrition I reviewed his updated case. He is afebrile and his tachycardia is noted. His white blood cell count is 11.7. Clinical exam was performed and there is diffuse ruborous erythema to bilateral lower extremities that is more notable compared to prior clinical visits. There is also an odor. There is no purulence on expression. His newer clinical finding includes a left 5th toe wound with necrosis and deroofed blister. There is no purulence on expression today and it is starting to dry. There is no deep tissue exposure at this site. His posterior left leg ulcer site also appears deeper with some devitalized tendon without purulence to the posterior left leg. His prior healthy anterior left leg ulcers are now dry eschars. His right foot ulcer sites appear stable and improved from his last clinical visit however there is more achilles tendon moisture and exposure noted (deteriorization) to the posterior right wound site compared to his last wound center visit. There is no purulence or adjacent erythema at this site. Culture was sent to microbiology for further evaluation at the time of his admission and the results are pending. MRSA PCR was negative. His blood cultures are also pending. Dakin wet-to-dry dressing was placed to all ulcers with overlying gauze, abdominal pads, Kerlix, and Joao wraps. To change daily. I recommend improvement offloading keep pressure off of these posterior leg sites by hanging his legs over pillows in bed if possible. A consult was placed to Dr. Morgan from vascular surgery. Dr. Dotson verbally reviewed the case with Dr. Morgan previously at the time of his admission yesterday. Arterial duplex of bilateral lower extremity was ordered. Patient may need further vascular intervention pending results. Left foot/ankle/leg x-rays ordered. These were reviewed without soft tissue emphysema, foreign body, adjacent osseous destruction to the fifth toe bone structures. Soft tissue deficit is apparent consistent with ulcer location to the posterior leg. I also recommend and ordered right ankle and leg x-rays due to the notable anteriorization compared to his last clinic visit. I recommend continuation of broad-spectrum antibiotics including vancomycin and Zosyn at this time. Patient again advised tobacco cessation - reviewed rationale of this. Patient not interested in tobacco cessation and is well informed this is a risk factor that can lead to delayed healing, nonhealing, possible loss of limb, and/or premature . Reviewed importance of proper blood sugar control to help optimize healing as well. Medical management DVT prophylaxis per primary team is noted and appreciated. Overall his bilateral lower extremity wound and limb status is deteriorating. I discussed with him today that he is at risk for limb loss and his ability to heal is very guarded. He was previously on a palliative care type program in the outpatient setting, and had remained stable for an extended period of time. Now he has a status change and our primary goal is to control him from an infection status and allow his wounds to demarcate while he goes to the peripheral vascular updated work-up. Urgent surgical intervention is not recommended at this time to the lower extremities. Podiatry will continue to follow closely. Please do not hesitate to call if you have any questions. Izzy Gruber DPM, [facility] [phone]
--- NOTE | 2021-01-26 09:34 | RAD_ITS ---
STUDY: X-RAY - RIGHT ANKLE REASON FOR EXAM: Male, 65 years old. chronic wound / infection TECHNIQUE: 3 view(s) of the ankle. COMPARISON: None. FINDINGS: Normal visualized distal tibia and fibula. Normal medial and lateral malleoli. Normal tibiotalar articulation and ankle mortise. Normal visualized talus and calcaneus. Small plantar posterior calcaneal enthesophytes. The visualized subtalar, talonavicular, calcaneocuboid and tarsal articulations are normal. The soft tissue structures are unremarkable. RAD/Ankle min 3 Views IMPRESSION: Normal x-ray examination of the ankle. No radiographic evidence of osteomyelitis. Electronically Signed: Cristo Hart MD at 11:55 EST Tel , Service support ,
--- NOTE | 2021-01-26 09:35 | RAD_ITS ---
STUDY: X-RAY - RIGHT TIBIA AND FIBULA REASON FOR EXAM: Male, 65 years old. chronic wound / infection TECHNIQUE: 2 view(s) of the tibia and fibula were obtained. COMPARISON: None. FINDINGS: Normal visualized tibia. Normal visualized fibula. The soft tissue structures are unremarkable. RAD/Tibia & Fibula 2 Views IMPRESSION: Normal x-ray examination of the tibia and fibula. Electronically Signed: Cristo Hart MD at 11:54 EST Tel , Service support ,
[2021-01-26 09:49] LABS: Differential Comment SCANNED
[2021-01-26 09:50] LABS: Anisocytosis 2+; Macrocytosis 1+; Microcytosis 1+; Platelet Estimate SLT DEC (ADEQ)
[2021-01-26] MEDS: Sodium Polystyrene Sulfonate 15 GM/60 ML UDC 30 GM PO (09:51)
[2021-01-26] MEDS: glipiZIDE 10 MG Tablet PO (09:52)
[2021-01-26] MEDS: Famotidine 20 MG Tablet PO (09:52)
[2021-01-26] MEDS: Aspirin E.C. 81 MG Tablet PO (09:53)
[2021-01-26] MEDS: Ferrous Sulfate 325 MG Tablet PO ×2 (09:53→18:10)
[2021-01-26] MEDS: Gabapentin 100 MG Capsule 200 MG PO (09:54)
[2021-01-26] MEDS: Furosemide 40 MG/4 ML Vial IV (09:54)
[2021-01-26] MEDS: Atenolol 50 MG Tablet PO (09:56)
[2021-01-26] MEDS: Paroxetine 20 MG Tablet 40 MG PO (09:57)
[2021-01-26] MEDS: DAKIN'S SOL HALF STRENGTH (=0.25%) 1 APPLIC TOPICAL (10:03)
[2021-01-26] MEDS: Glucerna Shake 120 ML LIQUID PO (10:16)
--- NOTE | 2021-01-26 10:45 | CT_ITS ---
STUDY: CT ABDOMEN AND PELVIS WITHOUT CONTRAST REASON FOR EXAM: Male, 65 years old. Jaundice -- Hyperbilirubinemia RADIATION DOSAGE (If Supplied By Facility): CTDIvol = ( 28.29 ) mGy, DLP = ( 1618.41 ) mGycm TECHNIQUE: Transaxial images were obtained from the dome of the diaphragm to the symphysis pubis without oral contrast, and without intravenous contrast. Sagittal and coronal images were reconstructed. Individualized dose optimization techniques were used for this CT. COMPARISON: None. FINDINGS: Tiny bilateral pleural effusions with some bibasilar atelectasis. Cardiomegaly. Small pericardial effusion. There is a diffuse contour abnormality of the liver consistent with cirrhotic changes. Normal gallbladder and extrahepatic biliary system. There is mild splenomegaly. Normal pancreas. Normal bilateral adrenal glands. Innumerable bilateral renal cysts consistent with a possible dominant polycystic kidney disease. Small amount of ascites likely from volume overload. Normal visualized stomach. Small diverticulum of the second portion the duodenum. There are multiple colonic diverticula consistent with diverticulosis. The appendix is visualized and appears normal. 3.2 cm the fusiform aneurysm of the infrarenal abdominal aorta. Normal inferior vena cava. Normal retroperitoneum. Aponte catheter within the collapsed bladder. Normal abdominal wall. Normal osseous structures. CT/Abdomen/Pelvis without Cont IMPRESSION: 1. Suspect mild cirrhosis with mild splenomegaly likely secondary to portal hypertension. 2. Autosomal dominant polycystic kidney disease with mild volume overload with small bilateral pleural effusions and a small amount of ascites. 3. 3.2 cm abdominal aortic aneurysm. Electronically Signed: Cristo Hart MD at 12:31 EST Tel , Service support ,
--- NOTE | 2021-01-26 11:17 | NURSING ---
left the floor via bed to radiology. 02 at 3L NC maintained with portable oxgyen.
[2021-01-26] MEDS: oxyCODONE 5 MG Tablet PO (12:57)
[2021-01-26] MEDS: Magnesium Citrate 300 ML PO (13:02)
[2021-01-26 13:36] LABS: Bedside Glucose 138 mg/dL (70-110)
--- NOTE | 2021-01-26 14:55 | NURSING ---
Pt restless and became increasingly more agitated every since this nurse inserted bustillo. Pt has attempted to pull on bustillo several times. this nurse and talked about it and wanted it removed. This nurse notified Dr. Fonseca and then removed bustillo.
[2021-01-26] MEDS: Tamsulosin HCl 0.4 MG Capsule PO (18:10)
[2021-01-26] MEDS: Juven (unflavored) Packet 1 PACKET PO (18:16)
[2021-01-26 18:31] LABS: Bedside Glucose 171 mg/dL (70-110)
[2021-01-26] MEDS: Lactulose 20 GM/30 ML UDC PO (22:53)
[2021-01-26] MEDS: Insulin Lispro 100 UNIT/ML INSULN.PEN SC (23:16)
[2021-01-26 23:20] LABS: Bedside Glucose 181 mg/dL (70-110)
[2021-01-27] VITALS (11 sets, daily range): BP systolic 114–137; BP diastolic 71–91; PULSE 59–108; RESP 20–28; TEMP 35.8–36.6; O2SAT 86–99
[2021-01-27] MEDS: Ipratropium/Albuterol Sulfate 3 ML AMPUL.NEB INHALATION ×4 (01:35→19:50)
[2021-01-27] MEDS: Vancomycin IV 1,000 MG/200 ML BAG 200 MG IV (02:40)
[2021-01-27 03:13] LABS: Vancomycin, Trough Level 25.1 ug/mL (5.0-15.0)
--- NOTE | 2021-01-27 03:30 | PCM.RX.CS ---
Consult Pharmacy has been consulted to manage selected antiobiotic: Vancomycin Type of Consult: Follow-up Suspected Infection: Skin/Soft tissue Prior Doses of Antibiotics Received/Current Regimen: Medications Vancomycin HCl (Vancomycin) 1,000 mg in 200 mls @ 200 mls/hr IV Q12H TROY Stop: 01/27/21 03:40 Last Admin: 01/27/21 02:40 Dose: 200 mls/hr Labs: Sodium 137 mmol/L (136-145) 01/26/21 05:57 Potassium 5.2 mmol/L (3.5-5.1) H 01/26/21 05:57 Chloride 99 mmol/L (98-107) 01/26/21 05:57 Carbon Dioxide 30.0 mmol/L (21.0-32.0) 01/26/21 05:57 Anion Gap 8 (5-15) 01/26/21 05:57 BUN 65 mg/dL (7-18) H 01/26/21 05:57 Creatinine 2.21 mg/dL (0.70-1.30) H 01/26/21 05:57 Est GFR (MDRD) Af Amer 38 mL/min (>60) L 01/26/21 05:57 Est GFR (MDRD) Non-Af 32 mL/min (>60) L 01/26/21 05:57 BUN/Creatinine Ratio 29.4 RATIO (10-20) H 01/26/21 05:57 Glucose 99 mg/dL (74-106) 01/26/21 05:57 Vancomycin Trough 25.1 ug/mL (5.0-15.0) H 01/27/21 02:35 Microbiology: Microbiology 01/25/21 16:00 Wound - Left Foot Gram Stain - Final 01/25/21 16:00 Wound - Left Foot Wound Culture - Preliminary Staphylococcus aureus 01/25/21 13:02 Blood Culture (Wb) - Right Forearm Blood Culture - Preliminary Weight used for dosin.8 kg Estimated Creatinine Clearance: 45.3 Goal Trough: 15-20 mcg/mL Pharmacy Plan for Drug Dosing: Vancomycin trough level was high at 25.1. Will discontinue current dosing and draw a random level 01/28/21 @0230. Further dosing will be determined from that level. Pharmacy Service will continue to monitor and adjust dosing as required. Follow-Up Labs: Trough Vancomycin - random Labs to be done on [date and time ordered]: 01/28/21 @0238
[2021-01-27] MEDS: Lactulose 20 GM/30 ML UDC PO ×3 (05:01→22:52)
[2021-01-27 05:08] LABS: Absolute Lymphocyte Count 0.49 X10^3/uL (0.83-4.51); Absolute Neutrophil Count 7.7 X10^3/uL (2.0-7.7); Basophil# 0.03 X10^3/uL; Basophil% 0.3 % (0-1); Eosinophil# 0.06 X10^3/uL; Eosinophils% 0.7 % (0-5); Hematocrit 45.3 % (40-54); Hemoglobin 13.3 g/dL (13.0-16.5); Lymphocyte # 0.49 X10^3/ul (4.0); Lymphocyte % 5.3 % (19-41); Mean Corp Hgb Conc 29.4 g/dL (32-36); Mean Corpuscular Hgb 30.3 pg (27.0-32.0); Mean Corpuscular Volume 103.2 fL (80-94); Mean Platelet Vol. 12.9 fl (6.2-12.0); Monocyte# 0.81 X10^3/uL; Monocyte% 8.8 % (0-10); NRBC Flagged by Analyzer 0 % (0-5); Neutrophil # 7.72 X10^3/uL (2.7-7.7); Neutrophil % 84.4 % (47-70); POSITIVE DIFFERENTIAL YES; POSITIVE MORPHOLOGY YES; Platelet Count 122 K/mm3 (150-450); RBC Distribution Width CV 18.9 % (11.6-14.6); RBC Distribution Width SD 72.7 fl (35.1-43.9); Red Blood Count 4.39 M/mm3 (4.6-6.2); White Blood Count 9.2 K/mm3 (4.4-11.0)
[2021-01-27 05:09] LABS: Differential Indicated SCAN CRITERIA MET
[2021-01-27 05:19] LABS: International Normalized Ratio 3.2; Prothrombin Time (Protime)PT. 32.2 SECONDS (11.7-14.9)
[2021-01-27 05:37] LABS: ALB/GLOB Ratio 0.6 RATIO (0.9-2.4); AST(SGOT) 180 U/L (15-37); Alanine Aminotransfer ALT/SGPT 148 U/L (16-61); Albumin, Serum 2.4 g/dL (3.2-5.0); Alkaline Phosphatase 216 U/L (45-117); Anion Gap 7 (5-15); BUN 70 mg/dL (7-18); BUN/Creat Ratio 30.8 RATIO (10-20); Calcium,Total 8.4 mg/dL (8.5-10.1); Chloride 99 mmol/L (98-107); Creatinine, Serum 2.27 mg/dL (0.70-1.30); EST Glomerular Filtration Rate 31 mL/min (>60); Est Glom Filt Rate - Afr Amer 37 mL/min (>60); Estimated Creatinine Clearance 37.22 ml/min; Globulin 3.9 g/dL (2.2-4.2); Glucose 193 mg/dL (74-106); Magnesium 2.2 mg/dL (1.6-2.6); Potassium 4.3 mmol/L (3.5-5.1); Protein, Total 6.3 g/dL (6.4-8.2); Sodium Level 139 mmol/L (136-145)
[2021-01-27 06:55] LABS: Bedside Glucose 155 mg/dL (70-110)
--- NOTE | 2021-01-27 07:02 | PCM.PROGNOTE ---
Subjective: Patient seen and examined resting comfortably. Patient denies any new pedal complaints. Patient denies any nausea, fever, chills, chest pain, shortness of breath, cough, streaking, purulence, vomiting. - Physical Exam Vitals/I&O's: Vital Signs Temp Pulse Resp BP Pulse Ox 97.6 F L 108 H 20 H 114/71 99 01/27/21 02:28 01/27/21 04:31 01/27/21 02:28 01/27/21 02:28 01/27/21 02:28 Oxygen Flow Rate (L/min) 3 Oxygen Delivery Method Nasal Cannula Weight: 120.882 kg Body Mass Index (BMI) 34.2 Finger Stick Blood Glucose 155 Intake and Output for Last 24 Hours 01/25/21 01/26/21 01/27/21 23:59 23:59 23:59 Intake Total 1388.25 / 1388.25 1900.25 / 1900.25 250 / 250 Output Total 550 / 550 Balance 1388.25 / 1388.25 1350.25 / 1350.25 250 / 250 General: Alert, Oriented x3 HEENT: Atraumatic Abdomen: Obese Extremities: No clubbing, No cyanosis, Capillary Refill Less than 3 Seconds, Diminished Peripheral Pulses, Edema, Tenderness - to wounds Skin: Ulcer/ Wound - bilateral leg, posterior ankle and foot ulcerations noted to level of tendon to posterior ankle b/l and sub q in other locations. Some necrotic tissue note as well as eschars and fibrous tissue. Erythema noted to anterior right leg consistent with cellulitis. Musculoskeletal: Muscle Wasting, Tenderness Neurological: - - decreased epicritic sensation Psych/Mental Status: Normal Affect, Appropriate Microbiology Past 72 Hours 01/25/21 16:00 Wound - Left Foot Gram Stain - Final 01/25/21 16:00 Wound - Left Foot Wound Culture - Preliminary Staphylococcus aureus 01/25/21 13:02 Blood Culture (Wb) - Right Forearm Blood Culture - Preliminary Laboratory Results 01/26/21 05:57: Differential Comment SCANNED, Platelet Estimate SLT DEC, Anisocytosis 2+, Microcytosis 1+, Macrocytosis 1+ 01/26/21 08:48: Specimen Type ART, Sample Site L Radial, pH 7.40, Bicarbonate Actual 28.3 H, Total CO2 30, Base Excess 4 H, O2 Saturation 94 L, O2 % 24, ABG pCO2 45.2 H, ABG pO2 73 L, O2 Delivery Device Venti Mask 01/26/21 12:35: POC Glucose 138 H 01/26/21 18:09: POC Glucose 171 H 01/26/21 23:02: POC Glucose 181 H 01/27/21 02:35: Vancomycin Trough 25.1 H 01/27/21 04:57: WBC 9.2, RBC 4.39 L, Hgb 13.3, Hct 45.3, MCV 103.2 H, MCH 30.3, MCHC 29.4 L, RDW Std Deviation 72.7 H, RDW Coeff of Iban 18.9 H, Plt Count 122 L, MPV 12.9 H, Immature Gran % (Auto) 0.500, Neut % (Auto) 84.4 H, Lymph % (Auto) 5.3 L, Bowman % (Auto) 8.8, Eos % (Auto) 0.7, Baso % (Auto) 0.3, Absolute Neuts (auto) 7.7, Absolute Lymphs (auto) 0.49 L, Nucleated RBC % 0 01/27/21 04:57: PT 32.2 H, INR 3.2 01/27/21 04:57: Sodium 139, Potassium 4.3, Chloride 99, Carbon Dioxide 33.0 H, Anion Gap 7, BUN 70 H, Creatinine 2.27 H, Estim Creat Clear Calc 37.22, Est GFR (MDRD) Af Amer 37 L, Est GFR (MDRD) Non-Af 31 L, BUN/Creatinine Ratio 30.8 H, Glucose 193 H, Calcium 8.4 L, Magnesium 2.2, Total Bilirubin 3.10 H, AST 180 H, ALT 148 H, Alkaline Phosphatase 216 H, Total Protein 6.3 L, Albumin 2.4 L, Globulin 3.9, Albumin/Globulin Ratio 0.6 L 01/27/21 04:57: Ammonia 34.0 H 01/27/21 06:49: POC Glucose 155 H Current Medications Albuterol Sulfate (Albuterol 2.5 Mg/3 Ml Vial.Neb.) 2.5 mg INHALATION Q4H PRN PRN PRN Reason: Shortness of breath, wheezing Albuterol/Ipratropium (Ipratropium/Albuterol Sulfate 3 Ml Ampul.Neb) 3 ml INHALATION Q6H.RT [facility] Last Admin: 01/27/21 01:35 Dose: 3 ml Documented by: Aspirin (Aspirin E.C. 81 Mg Tablet) [facility] Last Admin: 01/26/21 09:53 Dose: 81 mg Documented by: Atenolol (Atenolol 50 Mg Tablet) 50 mg PO DAILY [facility] Last Admin: 01/26/21 09:56 Dose: 50 mg Documented by: Bumetanide (Bumetanide 2 Mg Tablet) 1 mg PO DAILY [facility] Calamine/Phenol (Menthol/Lanolin/Calamine/Znox 113 Gm Tube) 1 applic TOPICAL BID [facility]; Protocol Last Admin: 01/26/21 22:52 Dose: 1 applicatio Documented by: Famotidine (Famotidine 20 Mg Tablet) 20 mg PO DAILY [facility] Last Admin: 01/26/21 09:52 Dose: 20 mg Documented by: Ferrous Sulfate (Ferrous Sulfate 325 Mg Tablet) [facility] Last Admin: 01/26/21 18:10 Dose: 325 mg Documented by: Gabapentin (Gabapentin 100 Mg Capsule) 200 mg PO DAILY [facility] Last Admin: 01/26/21 09:54 Dose: 200 mg Documented by: Glipizide (Glipizide 10 Mg Tablet) 10 mg PO DAILY@0730 [facility] Last Admin: 01/26/21 09:52 Dose: 10 mg Documented by: Sodium Chloride () 250 mls @ 15 mls/hr IV .[id number] PRN PRN Reason: Saline Flush Last Infusion: 01/27/21 03:52 Dose: 15 mls/hr Documented by: Sodium Chloride () 250 mls @ 15 mls/hr IV .[id number] PRN PRN Reason: Additional IVPB Infusion Piperacillin Sod/Tazobactam (Sod 3.375 gm/ Sodium Chloride) 50 mls @ 12.5 mls/hr IV Q8 [facility] Last Admin: 01/27/21 05:01 Dose: 12.5 mls/hr Documented by: Vancomycin IV Pharmacy to Dose (1 ea/ Sodium Chloride) 500 mls @ 250 mls/hr IV X1 PRN; Protocol PRN Reason: Rx to Dose Insulin Glargine (Insulin Glargine 100 Units/Ml Pen) 18 units SC DAILY [facility] Last Admin: 01/26/21 09:58 Dose: 18 units Documented by: Insulin Human Lispro (Insulin Lispro 100 Unit/Ml Insuln.Pen) 0 unit SC ACHS [facility]; Protocol Last Admin: 01/26/21 23:16 Dose: 1 units Documented by: L-Arginine/L-Glutamine/Calcium HMB (Juan (Unflavored) Packet) 1 packet PO BIDCM [facility] Last Admin: 01/26/21 18:16 Dose: 1 packet Documented by: Lactulose (Lactulose 20 Gm/30 Ml Udc) 20 gm PO TID [facility] Last Admin: 01/27/21 05:01 Dose: 20 gm Documented by: Nystatin (Nystatin Powder 15gm Bottle) 1 applic TOPICAL BID [facility]; Protocol Last Admin: 01/26/21 22:53 Dose: 1 applicatio Documented by: Ondansetron HCl (Ondansetron 4 Mg/2 Ml Vial) 4 mg IV Q8H PRN PRN PRN Reason: NAUSEA/VOMITING Oxycodone HCl (Oxycodone 5 Mg Tablet) 5 mg PO Q4H PRN PRN PRN Reason: Pain Score 4-10 Last Admin: 01/26/21 12:57 Dose: 5 mg Documented by: Paroxetine HCl (Paroxetine 20 Mg Tablet) 40 mg PO DAILY [facility] Last Admin: 01/26/21 09:57 Dose: 40 mg Documented by: Senna/Docusate Sodium (Senna/Docusate Sodium 1 Tablet) 2 tablet PO BID PRN PRN PRN Reason: Constipation Sodium Chloride (0.9% Saline Lock 10 Ml Syringe) 10 - 40 ml IV UD PRN PRN Reason: SALINE FLUSH Last Admin: 01/25/21 21:06 Dose: 10 ml Documented by: Sodium Hypochlorite (Dakin's Eleni Half Strength (=0.25%)) 1 applic TOPICAL DAILY [facility]; Protocol Last Admin: 01/26/21 10:03 Dose: 1 bottle Documented by: Tamsulosin HCl (Tamsulosin Hcl 0.4 Mg Capsule) 0.4 mg PO DAILY@1730 [facility] Last Admin: 01/26/21 18:10 Dose: 0.4 mg Documented by: Zolpidem Tartrate (Zolpidem Tartrate 5 Mg Tablet) 5 mg PO QHS PRN PRN PRN Reason: INSOMNIA Last Admin: 01/25/21 21:07 Dose: 5 mg Documented by: Medical Necessity - Tobacco Use Smoking Status: Current every day smoker Tobacco Use: Cigarettes Assessment/Plan All Active Problems (Last Updated 01/25/21 @ 14:[address] Mellissa Fonseca MD) Cellulitis of left lower limb (Acute) Gangrene of toe of left foot (Acute) Hyperbilirubinemia (Acute) Liver cirrhosis (Acute) Acute kidney injury superimposed on CKD (Acute) Left leg cellulitis (Acute) Infected diabetic left leg ulcers (Acute) Left foot/ankle cellulitis with necrotic ulceration left 5th toe Chronic bilateral lower extremity ulcerations down to subcutaneous and fascia/tendon layers; including continued deterioration to bilateral posterior leg ulcer sites and exposed Achilles compared to last wound center visit Diabetes with peripheral neuropathy Peripheral vascular disease - chronic Tobacco Dependence Other multiple comorbidities: Atrial fibrillation, acute on chronic kidney disease, jaundice, thrombocytopenia, congestive heart failure, delayed healing, malnutrition Patient seen and examined Dakin wet-to-dry dressing was placed to all ulcers with overlying gauze, abdominal pads, Kerlix, and Joao wraps per nursing. To change daily. I recommend improvement offloading keep pressure off of these posterior leg sites by hanging his legs over pillows in bed if possible. Patient is noted to move his legs a lot during exam so this may not be feasible. Wound culture noted to be positive for staph aureus and gram neg krystin. Blood cultures are also growing staph A consult was placed to Dr. Morgan from vascular surgery. Dr. Dotson verbally reviewed the case with Dr. Morgan previously at the time of his admission yesterday. Arterial duplex of bilateral lower extremity was ordered. Patient may need further vascular intervention pending results. Left foot/ankle/leg x-rays ordered. These were reviewed without soft tissue emphysema, foreign body, adjacent osseous destruction to the fifth toe bone structures. Soft tissue deficit is apparent consistent with ulcer location to the posterior leg. I recommend continuation of broad-spectrum antibiotics including vancomycin and Zosyn at this time. Patient again advised tobacco cessation - reviewed rationale of this. Patient not interested in tobacco cessation and is well informed this is a risk factor that can lead to delayed healing, nonhealing, possible loss of limb, and/or premature . Reviewed importance of proper blood sugar control to help optimize healing as well. Medical management DVT prophylaxis per primary team is noted and appreciated. Overall his bilateral lower extremity wound and limb status is deteriorating. I discussed with him today that he is at risk for limb loss and his ability to heal is very guarded. He was previously on a palliative care type program in the outpatient setting, and had remained stable for an extended period of time. Now he has a status change and our primary goal is to control him from an infection status and allow his wounds to demarcate while he goes to the peripheral vascular updated work-up. Urgent surgical intervention is not recommended at this time to the lower extremities. Podiatry will continue to follow closely. Please do not hesitate to call if you have any questions. Macey Campbell DPM [facility] [phone]
--- NOTE | 2021-01-27 09:34 | ECHOCS_ITS ---
Reason For Study: MURMUR Procedure This was a 2D Doppler, Color Flow transthoracic echocardiogram. Patient was scanned in supine position during reflux assessment. The study was technically difficult. Exam performed portable in patient room. Left Ventricle Normal LV size. Moderate concentric left ventricular hypertrophy. D shaped septum in diastole. The estimated ejection fraction is 50 %. No regional wall motion abnormalities noted. Right Ventricle Mildly dilated right ventricle. Mild to moderate global right ventricular systolic dysfunction. Atria The left atrium is severely enlarged. The right atrium is severely enlarged. Mitral Valve Bileaflet diffuse mitral valve thickening. Moderately severe (3+) eccentric mitral valve insufficiency. Tricuspid Valve Normal tricuspid valve. Moderate (2+) tricuspid valve insufficiency. Pulmonary artery systolic pressure is 55 mmHg. Moderate pulmonary hypertension. Aortic Valve Trisinus/trileaflet aortic valve. Pulmonic Valve Normal pulmonic valve. Mild (1+) pulmonic valve insufficiency. Great Vessels Normal aortic root. The pulmonary artery is normal size. The inferior vena cava is dilated. Pericardium/Pleural No pericardial effusion. Medication Definity deferred due to elevated PAP. MMode/2D Measurements & Calculations LVIDd: 5.5 cm IVSd: 1.4 cm Ao root diam: 4.3 cm LVIDs: 4.3 cm LVPWd: 1.4 cm RVDd: 5.5 cm FS: 21.7 % LAV(MOD-bp): 180.4 ml LVAd ap4: 34.6 cm2 SV(MOD-sp4): 49.1 ml LAV(MOD-bp) Indexed: 81.7 ml/m2 EDV(MOD-sp4): 118.3 ml LAV(MOD-sp2): 131.8 ml EDV(sp4-el): 112.7 ml LAV(MOD-sp4): 190.2 ml LVAs ap4: 25.6 cm2 ESV(MOD-sp4): 69.2 ml ESV(sp4-el): 69.2 ml EF(MOD-sp4): 41.5 % EF(sp4-el): 38.6 % SV(sp4-el): 43.5 ml LA A4 area: 47.0 cm2 LA dimension(2D): 6.3 cm RA A4 area: 39.0 cm2 Time Measurements MV dec time: 0.14 sec Doppler Measurements & Calculations MV E max dayanna: 108.1 cm/sec Ao V2 max: 71.6 cm/sec LV V1 max: 59.5 cm/sec Ao max P.1 mmHg LV V1 max P.4 mmHg PA V2 max: 79.1 cm/sec PI end-d dayanna: 166.6 cm/sec TR max dayanna: 362.3 cm/sec TR max P.5 mmHg Interpretation Summary Normal LV size. D shaped septum in diastole. Moderately severe (3+) eccentric mitral valve insufficiency. Pulmonary artery systolic pressure is 55 mmHg. The estimated ejection fraction is 50 %. The left atrium is severely enlarged. The right atrium is severely enlarged. Compared to prior study, there is no significant change. Ordering Physician: Franklyn Escobar Referring Physician: NORI BYERS Performed By: Maria C Baum RDCS, RVT
--- NOTE | 2021-01-27 10:19 | CASEMGMT ---
Healthcare POA with LW provision initialed scanned into summary tab of echart. Leticia Arguello is listed as healthcare POA. NALDO Mohan
--- NOTE | 2021-01-27 10:40 | CON.PCM_ITS ---
Problem List (1) Bacteremia Status: Acute Reason for Consult: (+) bcx Consulted by: Dr. Fonseca History of Present Illness: The patient is a 65 year old M with h/o stroke, PAD, CHF, CKD, osteo, presented with one week of worsening L foot wound with redness. Denies pain, no fever, no new joint or back pain. Came to ED, admitted on vanc/zosyn, seen by podiatry. Purulent blister drained from L 5th toe. Follows at wound care. Full ROS performed and neg except as noted above. - Medical History Past Medical History (Chronic Problems): Chronic Problems (Last Updated 01/25/21 @ 14:[address] Mellissa Fonseca MD) Open wound of left hand (Chronic) History of alcohol abuse (Chronic) Smoking addiction (Chronic) PAD (peripheral artery disease) (Chronic) 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) 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) Chronic systolic (congestive) heart failure (Chronic) Chronic kidney disease (Chronic) Dilated cardiomyopathy (Chronic) Nonrheumatic mitral (valve) insufficiency (Chronic) Paroxysmal atrial fibrillation (Chronic) CVA (cerebral vascular accident) (Chronic) Hyperlipidemia (Chronic) Essential (primary) hypertension (Chronic) Secondary pulmonary arterial hypertension (Chronic) Skin ulcer of right knee with fat layer exposed (Chronic) Skin ulcer of left knee with fat layer exposed (Chronic) 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 Anticipate Stage III or IV if excision done. Right ischial pressure sore, stage 2 (Chronic) at least a Stage II. Anticipate Stage III or IV if excision done. Pressure ulcer of sacral region, stage 2 (Chronic) at least a Stage II. Anticipate Stage III or IV if excision done. Vasculitis (Chronic) PVD (peripheral vascular disease) (Chronic) Anemia (Chronic) Cardiomyopathy (Chronic) 47 % EF in 2012 CVA, old, hemiparesis (Chronic) left side weakness....stroke in 2012 BPH (benign prostatic hyperplasia) (Chronic) Urinary incontinence (Chronic) Ulcer of right lower extremity with fat layer exposed (Chronic) 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) Osteomyelitis (Chronic) Malnutrition (Chronic) DM2 (diabetes mellitus, type 2) (Chronic) Depression (Chronic) Chronic low back pain (Chronic) Allergies/Adverse Reactions: Allergies No Known Allergies Allergy (Verified 01/25/21 12:06) Home Medications: Ambulatory Orders Medication Instructions Recorded Aspirin [Adult Aspirin] 81 mg PO DAILY 06/07/18 Cholecalciferol (VIT D3) [Vitamin 1,000 unit PO DAILY 06/07/18 D3] Acetaminophen [Tylenol Tablet] 650 mg PO Q6H PRN PRN tablet 06/14/18 Tamsulosin HCl [Flomax] 0.4 mg PO DAILY@1730 capsule 06/14/18 Zinc Sulfate (50mg elemental) 220 mg PO DAILY capsule 06/14/18 [Zinc Sulfate] Famotidine 20 mg PO DAILY 08/05/18 Insulin Lispro [Humalog] See Protocol SQ 4X/DAY 08/05/18 Multivitamins,Ther W-Minerals 1 tablet PO DAILY 08/05/18 [Multivitamin With Minerals (BKC)] Paroxetine HCl [Paxil] 40 mg PO DAILY 08/05/18 Warfarin [Coumadin] 5 mg PO SUMOTUWEFRSA 08/05/18 glipiZIDE [Glucotrol] 10 mg PO BID 08/05/18 Atenolol [Tenormin (beta dilia)] 50 mg PO DAILY tablet 08/10/18 Ferrous Sulfate 325 mg PO BIDCM tablet 08/10/18 Spironolactone 25 mg PO DAILY 06/29/19 Warfarin [Coumadin (PBKC)] 2.5 mg PO TH 06/29/19 Gabapentin [Neurontin] 200 mg PO DAILY 08/09/19 Ascorbic Acid [Vitamin C] 500 mg PO DAILY 10/27/19 Insulin Glargine,Hum.rec.anlog 18 unit SQ DAILY 01/17/20 [Lantus] Bumetanide [Bumex] 1 mg PO DAILY 01/25/21 Levomefolate/B6/B12/Algal Oil 1 ea PO BID 01/25/21 [Metanx Capsule] Gabapentin 300 mg PO DAILY 01/26/21 traZODone [Desyrel] 50 mg PO QHS 01/26/21 - Social History SMOKING STATUS:: Current every day smoker Vital Signs Temp Pulse Resp BP Pulse Ox 97.8 F 107 H 24 H 115/91 H 97 01/27/21 07:57 01/27/21 07:57 01/27/21 07:57 01/27/21 07:57 01/27/21 07:57 Oxygen Flow Rate (L/min) 2 Oxygen Delivery Method Nasal Cannula Weight: 120.882 kg Body Mass Index (BMI) 34.2 Finger Stick Blood Glucose 155 Microbiology Past 72 Hours 01/25/21 13:02 Blood Culture - Preliminary Blood Culture (Wb) - Right Forearm Staphylococcus aureus 01/25/21 16:00 Gram Stain - Final Wound - Left Foot Wound Culture - Preliminary Staphylococcus aureus Gram negative krystin Laboratory Tests Past 24 Hrs 01/27/21 01/27/21 01/27/21 02:35 04:57 04:57 WBC 9.2 RBC 4.39 L Hgb 13.3 Hct 45.3 MCV 103.2 H MCH 30.3 MCHC 29.4 L RDW Std Deviation 72.7 H RDW Coeff of Iban 18.9 H Plt Count 122 L MPV 12.9 H Immature Gran % (Auto) 0.500 Neut % (Auto) 84.4 H Lymph % (Auto) 5.3 L [place] % (Auto) 8.8 Eos % (Auto) 0.7 Baso % (Auto) 0.3 Absolute Neuts (auto) 7.7 Absolute Lymphs (auto) 0.49 L Nucleated RBC % 0 PT 32.2 H INR 3.2 Sodium Potassium Chloride Carbon Dioxide Anion Gap BUN Creatinine Estim Creat Clear Calc Est GFR (MDRD) Af Amer Est GFR (MDRD) Non-Af BUN/Creatinine Ratio Glucose Calcium Magnesium Total Bilirubin AST ALT Alkaline Phosphatase Ammonia Total Protein Albumin Globulin Albumin/Globulin Ratio Vancomycin Trough 25.1 H 01/27/21 01/27/21 04:57 04:57 WBC RBC Hgb Hct MCV MCH MCHC RDW Std Deviation RDW Coeff of Iban Plt Count MPV Immature Gran % (Auto) Neut % (Auto) Lymph % (Auto) [place] % (Auto) Eos % (Auto) Baso % (Auto) Absolute Neuts (auto) Absolute Lymphs (auto) Nucleated RBC % PT INR Sodium 139 Potassium 4.3 Chloride 99 Carbon Dioxide 33.0 H Anion Gap 7 BUN 70 H Creatinine 2.27 H Estim Creat Clear Calc 37.22 Est GFR (MDRD) Af Amer 37 L Est GFR (MDRD) Non-Af 31 L BUN/Creatinine Ratio 30.8 H Glucose 193 H Calcium 8.4 L Magnesium 2.2 Total Bilirubin 3.10 H AST 180 H ALT 148 H Alkaline Phosphatase 216 H Ammonia 34.0 H Total Protein 6.3 L Albumin 2.4 L Globulin 3.9 Albumin/Globulin Ratio 0.6 L Vancomycin Trough - Other Studies Radiology: [] reviewed Other Studies: [] Route of nutrition/ use of supplements: [] Nutritional Intake: [] IV Site: [] Aponte Catheter: [] - Physical Exam General: Alert, Oriented x3, Cooperative HEENT: Atraumatic, PERRLA, EOMI Neck: Supple, No Nodes Lungs: Clear to auscultation, Normal air movement Cardiovascular: Regular rate, Regular Rhythm, Murmur Abdomen: Soft, Non Tender, Non-Distended Extremities: Cyanosis, Edema Skin: Ulcer/ Wound, Rash Present - malar rash IV Site: Peripheral, without redness Musculoskeletal: No Tenderness to Palpation of Joints or Extremities - no spine tenderness Neurological: Cranial nerves II-XII grossly intact - Assessment/Plan Antibiotics: [] Assessment/Plan: [] staph aureus bacteremia due to L foot infection - h/o ckd, cirrhosis, foot osteo, CHF, PAD, ? vasculitis. Had neg rheum panel on 12/2020. Follows at wound care, recently seen for wound with exposed tendon in L hand. Podiatry following; L foot cx with mssa. Will order echo, repeat bcx, L foot MRI w/o contrast. Cont vanc/zosyn for now. Will follow, thank you
--- NOTE | 2021-01-27 10:42 | MRI_ITS ---
STUDY: MRI LEFT FOREFOOT WITHOUT CONTRAST REASON FOR EXAM: Left foot redness/plantar forefoot wound, evaluate for osteomyelitis. TECHNIQUE: Standardized fat and water weighted pulse sequences were obtained in all 3 orthogonal planes. COMPARISON: Radiographs 01/25/2021. FINDINGS: Although there is considerable image degradation secondary to patient motion and lack of fat suppression on the T2 weighted sequences, there is still significant diagnostically useful information available from this examination. There is arthrosis of the metatarsophalangeal joint of the hallux with dorsal osteophytes of the first metatarsal head and chondral thinning (T1 sagittal images 17-20). Normal tibial and fibular sesamoids, with normal sesamoids-first metatarsal articulations. There is a bipartite tibial sesamoid. Normal interphalangeal joint of the hallux. Normal proximal and distal phalanges of the great toe. Normal medial and lateral heads of the flexor hallucis brevis tendons. Normal flexor and extensor hallucis longus tendons. Normal second through fifth metatarsophalangeal (MTP) joints. Normal interphalangeal joints of the second through fifth toes. Normal proximal, middle and distal phalanges of the second through fourth toes. There is fat replacement of the majority of the congenitally fused fifth middle and distal phalanges on T1 sequences (T1 sagittal series 5 image 2). There are hammertoe deformities of the lesser toes. Normal first through fourth intermetatarsal spaces. Normal flexor and extensor tendons of the second through fifth toes. Normal visualized metatarsi. Normal intrinsic muscles of the forefoot. There is edema in the subcutis adipose space without demonstrated focal fluid collection to indicate soft tissue abscess. MRI/Lower Ext/No Jt/w/o IMPRESSION: Limited study secondary to patient motion. 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 Arthrosis of the first metatarsophalangeal joint. Electronically Signed: London Long MD at 7:25 EST Tel , Service support ,
--- NOTE | 2021-01-27 10:50 | CASEMGMT ---
YUN WING Face to Face with patient's for initial transition planning/care coordination assessment, patient out of room at testing. YUN WING introduced self and role at [facility]. Leticia willing to participate in assessment and is able to answer all questions appropriately. Care providers, pharmacy, and demographics verified. wishes for patient to discharge home and would like HHC. CM to provided with and patient with list of HHC providers. states she has no further needs or concerns at this time. CM to follow for discharge planning needs that may arise. PCP: [facility] Specialists: Allyn Kaur Pharmacy: [facility] Insurance: MMO Medicare Prescription Benefit: yes Living Will/HPOA: yes, Leticia LNOK: Living Arrangements: Patient lives with in a single story home with ramp to enter. assists patient with ADLs Transportation: DME/HHC: Patient has shower chair, BSC, walker, rollator, wheelchair, and oxygen at 3 lpm at sleep with [facility], [place]. Patient has previously been to [facility] and has had [facility] in the past. Disposition Plan: Patient to discharge home with HHC, family support, and follow-up plans in place. Stephanie BARONE, RN, CM
--- NOTE | 2021-01-27 11:24 | PN_ITS ---
Patient Problems: Active and Suspected Problems (Last Updated 01/25/21 @ 14:[address] Mellissa Fonseca MD) Bacteremia (Acute) Reason for Visit: Acute on chronic recurrent left lower extremity cellulitis Infected diabetic foot ulcers Left toe necrosis Subjective: Patient is a 65-year-old gentleman with multiple comorbidities admitted with left foot wound redness and warmth, and assessment of acute on chronic recurrent left lower extremity cellulitis and infected diabetic foot ulcers left toe nec rosis made antibiotics initiated per protocol patient admitted to regular nursing floor for further management Objective: GENERAL: cooperative HEENT: Atraumatic; EYES; Anicteric, Normal Conjunctiva NECK; supple, normal thyroid, RESPIRATORY: Diminished to auscultation CARDIOVASCULAR: Regular S1 S2, GI: soft, normoactive bowel sounds, : No Renal angle tenderness; EXTREMITIES: Left fifth toe necrosis, multiple ulcers in the left lower extremity MUSCULOSKELETAL: no muscle waisting NEURO: Awake; no lateralizing signs. SKIN: As described above PSYCH; Flat affect Vitals/I&O's: Vital Signs Temp Pulse Resp BP Pulse Ox 97.8 F 107 H 24 H 115/91 H 97 01/27/21 07:57 01/27/21 07:57 01/27/21 07:57 01/27/21 07:57 01/27/21 07:57 Oxygen Flow Rate (L/min) 2 Oxygen Delivery Method Nasal Cannula Weight: 120.882 kg Body Mass Index (BMI) 34.2 Finger Stick Blood Glucose 155 Intake and Output for Last 24 Hours 01/25/21 01/26/21 01/27/21 23:59 23:59 23:59 Intake Total 1388.25 / 1388.25 1900.25 / 1900.25 317.25 / 317.25 Output Total 550 / 550 Balance 1388.25 / 1388.25 1350.25 / 1350.25 317.25 / 317.25 Microbiology Past 72 Hours 01/25/21 13:02 Blood Culture (Wb) - Right Forearm Blood Culture - Preliminary Staphylococcus aureus 01/25/21 16:00 Wound - Left Foot Gram Stain - Final 01/25/21 16:00 Wound - Left Foot Wound Culture - Preliminary Staphylococcus aureus Gram negative krystin Laboratory Results 01/26/21 12:35: POC Glucose 138 H 01/26/21 18:09: POC Glucose 171 H 01/26/21 23:02: POC Glucose 181 H 01/27/21 02:35: Vancomycin Trough 25.1 H 01/27/21 04:57: WBC 9.2, RBC 4.39 L, Hgb 13.3, Hct 45.3, MCV 103.2 H, MCH 30.3, MCHC 29.4 L, RDW Std Deviation 72.7 H, RDW Coeff of Iban 18.9 H, Plt Count 122 L, MPV 12.9 H, Immature Gran % (Auto) 0.500, Neut % (Auto) 84.4 H, Lymph % (Auto) 5.3 L, [place] % (Auto) 8.8, Eos % (Auto) 0.7, Baso % (Auto) 0.3, Absolute Neuts (auto) 7.7, Absolute Lymphs (auto) 0.49 L, Nucleated RBC % 0 01/27/21 04:57: PT 32.2 H, INR 3.2 01/27/21 04:57: Sodium 139, Potassium 4.3, Chloride 99, Carbon Dioxide 33.0 H, Anion Gap 7, BUN 70 H, Creatinine 2.27 H, Estim Creat Clear Calc 37.22, Est GFR (MDRD) Af Amer 37 L, Est GFR (MDRD) Non-Af 31 L, BUN/Creatinine Ratio 30.8 H, Glucose 193 H, Calcium 8.4 L, Magnesium 2.2, Total Bilirubin 3.10 H, AST 180 H, ALT 148 H, Alkaline Phosphatase 216 H, Total Protein 6.3 L, Albumin 2.4 L, Globulin 3.9, Albumin/Globulin Ratio 0.6 L 01/27/21 04:57: Ammonia 34.0 H 01/27/21 06:49: POC Glucose 155 H Current Medications Albuterol Sulfate (Albuterol 2.5 Mg/3 Ml Vial.Neb.) 2.5 mg INHALATION Q4H PRN PRN PRN Reason: Shortness of breath, wheezing Albuterol/Ipratropium (Ipratropium/Albuterol Sulfate 3 Ml Ampul.Neb) 3 ml INHALATION Q6H.RT [facility] Last Admin: 01/27/21 07:10 Dose: 3 ml Documented by: Aspirin (Aspirin E.C. 81 Mg Tablet) 81 mg PO DAILYCM [facility] Last Admin: 01/26/21 09:53 Dose: 81 mg Documented by: Atenolol (Atenolol 50 Mg Tablet) 50 mg PO DAILY [facility] Last Admin: 01/26/21 09:56 Dose: 50 mg Documented by: Bumetanide (Bumetanide 2 Mg Tablet) 1 mg PO DAILY [facility] Calamine/Phenol (Menthol/Lanolin/Calamine/Znox 113 Gm Tube) 1 applic TOPICAL BID [facility]; Protocol Last Admin: 01/26/21 22:52 Dose: 1 applicatio Documented by: Famotidine (Famotidine 20 Mg Tablet) 20 mg PO DAILY [facility] Last Admin: 01/26/21 09:52 Dose: 20 mg Documented by: Ferrous Sulfate (Ferrous Sulfate 325 Mg Tablet) 325 mg PO BIDCM [facility] Last Admin: 01/26/21 18:10 Dose: 325 mg Documented by: Gabapentin (Gabapentin 100 Mg Capsule) 200 mg PO DAILY [facility] Last Admin: 01/26/21 09:54 Dose: 200 mg Documented by: Glipizide (Glipizide 10 Mg Tablet) 10 mg PO DAILY@0730 [facility] Last Admin: 01/26/21 09:52 Dose: 10 mg Documented by: Sodium Chloride () 250 mls @ 15 mls/hr IV .[id number] PRN PRN Reason: Saline Flush Last Infusion: 01/27/21 05:01 Dose: 0 mls/hr Documented by: Sodium Chloride () 250 mls @ 15 mls/hr IV .[id number] PRN PRN Reason: Additional IVPB Infusion Piperacillin Sod/Tazobactam (Sod 3.375 gm/ Sodium Chloride) 50 mls @ 12.5 ml s/hr IV Q8 [facility] Last Infusion: 01/27/21 09:01 Dose: Infused Documented by: Vancomycin IV Pharmacy to Dose (1 ea/ Sodium Chloride) 500 mls @ 250 mls/hr IV X1 PRN; Protocol PRN Reason: Rx to Dose Insulin Glargine (Insulin Glargine 100 Units/Ml Pen) 18 units SC DAILY [facility] Last Admin: 01/26/21 09:58 Dose: 18 units Documented by: Insulin Human Lispro (Insulin Lispro 100 Unit/Ml Insuln.Pen) 0 unit SC ACHS [facility]; Protocol Last Admin: 01/27/21 07:02 Dose: Not Given Documented by: L-Arginine/L-Glutamine/Calcium HMB (Juan (Unflavored) Packet) 1 packet PO BIDCM [facility] Last Admin: 01/26/21 18:16 Dose: 1 packet Documented by: Lactulose (Lactulose 20 Gm/30 Ml Udc) 20 gm PO TID [facility] Last Admin: 01/27/21 05:01 Dose: 20 gm Documented by: Nystatin (Nystatin Powder 15gm Bottle) 1 applic TOPICAL BID [facility]; Protocol Last Admin: 01/26/21 22:53 Dose: 1 applicatio Documented by: Ondansetron HCl (Ondansetron 4 Mg/2 Ml Vial) 4 mg IV Q8H PRN PRN PRN Reason: NAUSEA/VOMITING Oxycodone HCl (Oxycodone 5 Mg Tablet) 5 mg PO Q4H PRN PRN PRN Reason: Pain Score 4-10 Last Admin: 01/26/21 12:57 Dose: 5 mg Documented by: Paroxetine HCl (Paroxetine 20 Mg Tablet) 40 mg PO DAILY [facility] Last Admin: 01/26/21 09:57 Dose: 40 mg Documented by: Senna/Docusate Sodium (Senna/Docusate Sodium 1 Tablet) 2 tablet PO BID PRN PRN PRN Reason: Constipation Sodium Chloride (0.9% Saline Lock 10 Ml Syringe) 10 - 40 ml IV UD PRN PRN Reason: SALINE FLUSH Last Admin: 01/25/21 21:06 Dose: 10 ml Documented by: Sodium Hypochlorite (Dakin's Eleni Half Strength (=0.25%)) 1 applic TOPICAL DAILY [facility]; Protocol Last Admin: 01/26/21 10:03 Dose: 1 bottle Documented by: Tamsulosin HCl (Tamsulosin Hcl 0.4 Mg Capsule) 0.4 mg PO DAILY@1730 [facility] Last Admin: 01/26/21 18:10 Dose: 0.4 mg Documented by: Zolpidem Tartrate (Zolpidem Tartrate 5 Mg Tablet) 5 mg PO QHS PRN PRN PRN Reason: INSOMNIA Last Admin: 01/25/21 21:07 Dose: 5 mg Documented by: STROKE Vital Signs/Narrative: Vital Signs Temp Pulse Resp BP Pulse Ox 01/27/21 07:57 97.8 F 107 H 24 H 115/91 H 97 Medical Necessity - Tobacco Use Smoking Status: Current every day smoker Tobacco Use: Cigarettes Assessment/Plan All Active Problems (Last Updated 01/25/21 @ 14:[address] Mellissa Fonseca MD) Bacteremia (Acute) Cellulitis of left lower limb (Acute) Gangrene of toe of left foot (Acute) Hyperbilirubinemia (Acute) Liver cirrhosis (Acute) Acute kidney injury superimposed on CKD (Acute) Left leg cellulitis (Acute) Infected diabetic left leg ulcers (Acute) Patient is a 65-year-old gentleman with multiple comorbidities admitted with left foot wound redness and warmth, and assessment of acute on chronic recurrent left lower extremity cellulitis and infected diabetic foot ulcers left toe necrosis made antibiotics initiated per protocol patient admitted to regular nursing floor for further management 1. Left diabetic foot infection ?Patient assessment on admission consistent with Acute on chronic recurrent left lower extremity cellulitis, Infected diabetic foot ulcers, Left toe necrosis. Patient was started on broad-spectrum antibiotic therapy with vancomycin and Zosyn with consultation placed to podiatry as well as infectious disease. Patient to undergo further evaluation of the left foot with MRI without contrast as well as serial studies with Dopplers 2. Staph aureus bacteremia ?Patient is on vancomycin, seen by ID echo ordered 3. Chronic kidney disease stage III ?Due to diabetic nephropathy. Patient presented with worsening of kidney function with creatinine of 2.2 baseline creatinine 1.3. Consult placed to nep hrology 4. Diabetes mellitus type II -patient's oral hypoglycemics held. Placed on long acting insulin, Accu-Cheks a.c. and at bedtime and covered with sliding scale insulin 5. Paroxysmal A. fib ?Rate controlled on systemic anticoagulation with Coumadin INR 3.2 as of 01/27/2021 6. Chronic bilateral lower extremity venous stasis -Also placed to wound care nurse 7. Chronic systolic congestive heart failure ?Checks x-ray obtained on admission was unremarkable. Patient is on Bumex and Aldactone at home held in view of worsening kidney function 8. Chronic hypoxic respiratory failure ?Secondary to COPD patient is on baseline oxygen 3 L at home did continue with aerosol treatments as needed 9. Peripheral vascular disease ?Consult placed to vascular surgery patient undergoing arterial Doppler studies 10. BPH ?Patient is on Flomax 11. Possible polycystic kidney disease ?Nephrology on consult 12. Chronic liver disease ?Do suspect nonalcoholic fatty liver disease. CT obtained demonstrated mild liver cirrhosis with mild splenomegaly and portal hypertension 13. Thrombocytopenia ?Secondary to chronic liver disease 14. DVT prophylaxis ?Patient on Coumadin Inpatient E&M: 41022 Subs Hosp L3
[2021-01-27] MEDS: DAKIN'S SOL HALF STRENGTH (=0.25%) 1 APPLIC TOPICAL (11:57)
[2021-01-27] MEDS: Paroxetine 20 MG Tablet 40 MG PO (12:00)
[2021-01-27] MEDS: Ferrous Sulfate 325 MG Tablet PO ×2 (12:00→17:52)
[2021-01-27 12:01] LABS: Bedside Glucose 151 mg/dL (70-110)
[2021-01-27] MEDS: Aspirin E.C. 81 MG Tablet PO (12:01)
[2021-01-27] MEDS: glipiZIDE 10 MG Tablet PO (12:01)
[2021-01-27] MEDS: Famotidine 20 MG Tablet PO (12:01)
[2021-01-27] MEDS: Juven (unflavored) Packet 1 PACKET PO ×2 (12:01→17:52)
[2021-01-27] MEDS: Nystatin Powder 15gm Bottle 1 APPLIC TOPICAL ×2 (12:02→22:45)
[2021-01-27] MEDS: Insulin Lispro 100 UNIT/ML INSULN.PEN SC ×3 (12:03→22:56)
[2021-01-27] MEDS: Menthol/Lanolin/Calamine/Znox 113 GM Tube 1 APPLIC TOPICAL ×2 (12:03→22:45)
[2021-01-27] MEDS: Gabapentin 100 MG Capsule 200 MG PO (12:08)
[2021-01-27] MEDS: Atenolol 50 MG Tablet PO (12:09)
[2021-01-27] MEDS: Bumetanide 2 MG Tablet 1 MG PO (14:52)
--- NOTE | 2021-01-27 16:05 | US_ITS ---
STUDY: ABDOMINAL ULTRASOUND - RIGHT UPPER QUADRANT REASON FOR VISIT: Male, 65 years old Jaundice, hyperbilirubinemia TECHNIQUE: Ultrasound evaluation of the right upper quadrant was performed with real-time and static pehlan-scale imaging. TECHNICAL QUALITY: Adequate. COMPARISON: CT 01/26/2021 FINDINGS: Liver: The liver measures 17.4 cm. There is normal echogenicity of the liver. The bile ducts are within normal limits. There is hepatic color flow. The direction of portal flow is hepatopetal. There is no demonstrated mass lesion. Gallbladder: Normal distended gallbladder. The gallbladder wall measures 2 mm. There is a negative sonographic Dahl''s sign. There is no pericholecystic fluid. There is biliary sludge dependent within the gallbladder. Common Bile Duct (C.B.D.): The common bile duct measures 10 mm. Pancreas: Normal size of the head, body and tail of the pancreas. There is normal echogenicity of the pancreas. There is no demonstrated pancreatic mass or cyst. Right Kidney: Normal size of the right kidney. The right kidney measures 16.0 cm. Normal renal cortex. The right cortex measures 1.9 cm. Multiple large cysts consistent with autosomal dominant polycystic kidney disease. There is no right hydronephrosis. US/Liver IMPRESSION: 1. Gallbladder sludge. 2. Extrahepatic biliary ductal dilatation worrisome for choledocholithiasis or stricture. Correlation with MRCP or ERCP would be useful. 3. Autosomal dominant polycystic kidney disease. Electronically Signed: Cristo Hart MD at 11:29 EST Tel , Service support ,
[2021-01-27] MEDS: Tamsulosin HCl 0.4 MG Capsule PO (17:53)
--- NOTE | 2021-01-27 19:50 | CPS ---
placed pt back on O2 @ 3 lpm nasal
[2021-01-27] MEDS: oxyCODONE 5 MG Tablet PO (19:54)
[2021-01-27 23:01] LABS: Bedside Glucose 198 mg/dL (70-110)
[2021-01-28] VITALS (12 sets, daily range): BP systolic 130–152; BP diastolic 84–112; PULSE 92–124; RESP 16–24; TEMP 36.3–36.6; O2SAT 92–98
[2021-01-28 00:31] LABS: Bedside Glucose 205 mg/dL (70-110)
[2021-01-28 03:39] LABS: Anion Gap 5 (5-15); BUN 74 mg/dL (7-18); BUN/Creat Ratio 36.3 RATIO (10-20); Calcium,Total 8.6 mg/dL (8.5-10.1); Chloride 102 mmol/L (98-107); Creatinine, Serum 2.04 mg/dL (0.70-1.30); EST Glomerular Filtration Rate 35 mL/min (>60); Est Glom Filt Rate - Afr Amer 42 mL/min (>60); Estimated Creatinine Clearance 41.41 ml/min; Glucose 118 mg/dL (74-106); Potassium 3.7 mmol/L (3.5-5.1); Sodium Level 142 mmol/L (136-145)
[2021-01-28 03:41] LABS: Vancomycin, Random Level 23.3 ug/mL (0.0-15.0)
[2021-01-28] MEDS: Lactulose 20 GM/30 ML UDC PO ×2 (06:42→22:05)
[2021-01-28 06:51] LABS: Bedside Glucose 135 mg/dL (70-110)
[2021-01-28] MEDS: Ipratropium/Albuterol Sulfate 3 ML AMPUL.NEB INHALATION ×3 (07:20→19:15)
--- NOTE | 2021-01-28 07:25 | PN_ITS ---
Patient Problems: Active and Suspected Problems (Last Updated 01/25/21 @ 14:[address] Mellissa Fonseca MD) Bacteremia (Acute) Reason for Visit: Diabetic foot infection Subjective: Patient seen, echo obtained the day prior did not demonstrate any evidence of vegetation consultation was placed. Nephrology in view of patient impaired kidney function Objective: GENERAL: cooperative HEENT: Atraumatic; EYES; Anicteric, Normal Conjunctiva NECK; supple, normal thyroid, RESPIRATORY: Diminished to auscultation CARDIOVASCULAR: Regular S1 S2, GI: soft, normoactive bowel sounds, : No Renal angle tenderness; EXTREMITIES: Left fifth toe necrosis, and plantar surface of the right foot as well as heel MUSCULOSKELETAL: no muscle waisting NEURO: Awake; no lateralizing signs. SKIN: As described above PSYCH; Flat affect Vitals/I&O's: Vital Signs Temp Pulse Resp BP Pulse Ox 98 F 102 H 20 H 135/84 H 95 01/28/21 02:56 01/28/21 07:02 01/28/21 02:56 01/28/21 02:56 01/28/21 02:56 Oxygen Flow Rate (L/min) 3 Oxygen Delivery Method Nasal Cannula Weight: 120.882 kg Body Mass Index (BMI) 34.2 Finger Stick Blood Glucose 155 Intake and Output for Last 24 Hours 01/26/21 01/27/21 01/28/21 23:59 23:59 23:59 Intake Total 1900.25 / 1900.25 907.25 / 907.25 109.5 / 109.5 Output Total 550 / 550 Balance 1350.25 / 1350.25 907.25 / 907.25 109.5 / 109.5 Microbiology Past 72 Hours 01/25/21 16:00 Wound - Left Foot Gram Stain - Final 01/25/21 16:00 Wound - Left Foot Wound Culture - Preliminary Staphylococcus aureus Gram negative krystin 01/25/21 12:40 Blood Culture (Wb) - Left Forearm Blood Culture - Preliminary No growth in 48 hours. 01/25/21 13:02 Blood Culture (Wb) - Right Forearm Blood Culture - Preliminary Staphylococcus aureus Laboratory Results 01/27/21 11:54: POC Glucose 151 H 01/27/21 17:08: POC Glucose 205 H 01/27/21 22:55: POC Glucose 198 H 01/28/21 03:00: Random Vancomycin 23.3 H 01/28/21 03:00: Sodium 142, Potassium 3.7, Chloride 102, Carbon Dioxide 35.0 H, Anion Gap 5, BUN 74 H, Creatinine 2.04 H, Estim Creat Clear Calc 41.41, Est GFR (MDRD) Af Amer 42 L, Est GFR (MDRD) Non-Af 35 L, BUN/Creatinine Ratio 36.3 H, Glucose 118 H, Calcium 8.6 01/28/21 03:00: Hepatitis A IgM Ab Pending, Hep Bs Antigen Pending, Hep B Core IgM Ab Pending, Hepatitis C Ab (EIA) Pending 01/28/21 06:44: POC Glucose 135 H Current Medications Albuterol Sulfate (Albuterol 2.5 Mg/3 Ml Vial.Neb.) 2.5 mg INHALATION Q4H PRN PRN PRN Reason: Shortness of breath, wheezing Albuterol/Ipratropium (Ipratropium/Albuterol Sulfate 3 Ml Ampul.Neb) 3 ml INHALATION Q6H.RT [facility] Last Admin: 01/27/21 19:50 Dose: 3 ml Documented by: Aspirin (Aspirin E.C. 81 Mg Tablet) [facility] Last Admin: 01/27/21 12:01 Dose: 81 mg Documented by: Atenolol (Atenolol 50 Mg Tablet) 50 mg PO DAILY [facility] Last Admin: 01/27/21 12:09 Dose: 50 mg Documented by: Bumetanide (Bumetanide 2 Mg Tablet) 1 mg PO DAILY [facility] Last Admin: 01/27/21 14:52 Dose: 1 mg Documented by: Calamine/Phenol (Menthol/Lanolin/Calamine/Znox 113 Gm Tube) 1 applic TOPICAL BID [facility]; Protocol Last Admin: 01/27/21 22:45 Dose: 1 applicatio Documented by: Famotidine (Famotidine 20 Mg Tablet) 20 mg PO DAILY [facility] Last Admin: 01/27/21 12:01 Dose: 20 mg Documented by: Ferrous Sulfate (Ferrous Sulfate 325 Mg Tablet) [facility] Last Admin: 01/27/21 17:52 Dose: 325 mg Documented by: Gabapentin (Gabapentin 100 Mg Capsule) 200 mg PO DAILY [facility] Last Admin: 01/27/21 12:08 Dose: 200 mg Documented by: Glipizide (Glipizide 10 Mg Tablet) 10 mg PO DAILY@0730 [facility] Last Admin: 01/27/21 12:01 Dose: 10 mg Documented by: Sodium Chloride () 250 mls @ 15 mls/hr IV .[id number] PRN PRN Reason: Saline Flush Last Infusion: 01/28/21 06:41 Dose: 0 mls/hr Documented by: Sodium Chloride () 250 mls @ 15 mls/hr IV .[id number] PRN PRN Reason: Additional IVPB Infusion Piperacillin Sod/Tazobactam (Sod 3.375 gm/ Sodium Chloride) 50 mls @ 12.5 mls/hr IV Q8 [facility] Last Admin: 01/28/21 06:40 Dose: 12.5 mls/hr Documented by: Vancomycin IV Pharmacy to Dose (1 ea/ Sodium Chloride) 500 mls @ 250 mls/hr IV X1 PRN; Protocol PRN Reason: Rx to Dose Insulin Glargine (Insulin Glargine 100 Units/Ml Pen) 18 units SC DAILY [facility] Last Admin: 01/27/21 12:01 Dose: 18 units Documented by: Insulin Human Lispro (Insulin Lispro 100 Unit/Ml Insuln.Pen) 0 unit SC ACHS S ; Protocol Last Admin: 01/28/21 06:45 Dose: Not Given Documented by: L-Arginine/L-Glutamine/Calcium HMB (Juan (Unflavored) Packet) [facility] Last Admin: 01/27/21 17:52 Dose: 1 packet Documented by: Lactulose (Lactulose 20 Gm/30 Ml Udc) 20 gm PO TID [facility] Last Admin: 01/28/21 06:42 Dose: 20 gm Documented by: Nystatin (Nystatin Powder 15gm Bottle) 1 applic TOPICAL BID [facility]; Protocol Last Admin: 01/27/21 22:45 Dose: 1 applicatio Documented by: Ondansetron HCl (Ondansetron 4 Mg/2 Ml Vial) 4 mg IV Q8H PRN PRN PRN Reason: NAUSEA/VOMITING Oxycodone HCl (Oxycodone 5 Mg Tablet) 5 mg PO Q4H PRN PRN PRN Reason: Pain Score 4-10 Last Admin: 01/27/21 19:54 Dose: 5 mg Documented by: Paroxetine HCl (Paroxetine 20 Mg Tablet) 40 mg PO DAILY [facility] Last Admin: 01/27/21 12:00 Dose: 40 mg Documented by: Senna/Docusate Sodium (Senna/Docusate Sodium 1 Tablet) 2 tablet PO BID PRN PRN PRN Reason: Constipation Sodium Chloride (0.9% Saline Lock 10 Ml Syringe) 10 - 40 ml IV UD PRN PRN Reason: SALINE FLUSH Last Admin: 01/25/21 21:06 Dose: 10 ml Documented by: Sodium Hypochlorite (Dakin's Eleni Half Strength (=0.25%)) 1 applic TOPICAL DAILY [facility]; Protocol Last Admin: 01/27/21 11:57 Dose: 1 bottle Documented by: Tamsulosin HCl (Tamsulosin Hcl 0.4 Mg Capsule) 0.4 mg PO DAILY@1730 [facility] Last Admin: 01/27/21 17:53 Dose: 0.4 mg Documented by: Zolpidem Tartrate (Zolpidem Tartrate 5 Mg Tablet) 5 mg PO QHS PRN PRN PRN Reason: INSOMNIA Last Admin: 01/25/21 21:07 Dose: 5 mg Documented by: STROKE Vital Signs/Narrative: Vital Signs Pulse 01/28/21 07:02 102 H Medical Necessity - Tobacco Use Smoking Status: Current every day smoker Tobacco Use: Cigarettes Assessment/Plan All Active Problems (Last Updated 01/25/21 @ 14:[address] Mellissa Fonseca MD) Bacteremia (Acute) Cellulitis of left lower limb (Acute) Gangrene of toe of left foot (Acute) Hyperbilirubinemia (Acute) Liver cirrhosis (Acute) Acute kidney injury superimposed on CKD (Acute) Left leg cellulitis (Acute) Infected diabetic left leg ulcers (Acute) Patient is a 65-year-old gentleman with multiple comorbidities admitted with left foot wound redness and warmth, and assessment of acute on chronic recurrent left lower extremity cellulitis and infected diabetic foot ulcers left toe necrosis made antibiotics initiated per protocol patient admitted to regular nursing floor for further management 1. Left diabetic foot infection ?Patient assessment on admission consistent with Acute on chronic recurrent left lower extremity cellulitis, Infected diabetic foot ulcers, Left toe necrosis. Patient was started on broad-spectrum antibiotic therapy with vancomycin and Zosyn with consultation placed to podiatry as well as infectious disease. Patient to undergo further evaluation of the left foot with MRI without contrast as well as serial studies with Dopplers 2. Staph aureus bacteremia ?Patient is on vancomycin, seen by ID echo ordered D shaped septum in diastole. Moderately severe (3+) eccentric mitral valve insufficiency. Pulmonary artery systolic pressure is 55 mmHg. The estimated ejection fraction is 50 %. The left atrium is severely enlarged. The right atrium is severely enlarged. No evidence of vegetation 3. Chronic kidney disease stage III ?Due to diabetic nephropathy. Patient presented with worsening of kidney function with creatinine of 2.2 baseline creatinine 1.3. Consult placed to nephrology 4. Diabetes mellitus type II -patient's oral hypoglycemics held. Placed on long acting insulin, Accu-Cheks a.c. and at bedtime and covered with sliding scale insulin 5. Paroxysmal A. fib ?Rate controlled on systemic anticoagulation with Coumadin INR 3.2 as of 01/27/2021 6. Chronic bilateral lower extremity venous stasis -Also placed to wound care nurse 7. Chronic systolic congestive heart failure ?Checks x-ray obtained on admission was unremarkable. Patient is on Bumex and Aldactone at home held in view of worsening kidney function 8. Chronic hypoxic respiratory failure ?Secondary to COPD patient is on baseline oxygen 3 L at home did continue with aerosol treatments as needed 9. Peripheral vascular disease ?Consult placed to vascular surgery patient undergoing arterial Doppler studies 10. BPH ?Patient is on Flomax 11. Possible polycystic kidney disease ?Nephrology on consult 12. Chronic liver disease ?Do suspect nonalcoholic fatty liver disease. CT obtained demonstrated mild liver cirrhosis with mild splenomegaly and portal hypertension 13. Thrombocytopenia ?Secondary to chronic liver disease 14. DVT prophylaxis ?Patient on Coumadin Inpatient E&M: 66081 Subs Hosp L2
--- NOTE | 2021-01-28 07:37 | PN_ITS ---
Patient Problems: Active and Suspected Problems (Last Updated 01/25/21 @ 14:[address] Mellissa Fonseca MD) Bacteremia (Acute) Subjective: Patient seen and examined resting comfortably. Patient denies any new pedal complaints. Patient denies any nausea, fever, chills, chest pain, shortness of breath, cough, streaking, purulence, vomiting. - Physical Exam Vitals/I&O's: Vital Signs Temp Pulse Resp BP Pulse Ox 98 F 96 21 H 135/84 H 96 01/28/21 02:56 01/28/21 07:20 01/28/21 07:20 01/28/21 02:56 01/28/21 07:20 Oxygen Flow Rate (L/min) 3 Oxygen Delivery Method Nasal Cannula Weight: 120.882 kg Body Mass Index (BMI) 34.2 Finger Stick Blood Glucose 155 Intake and Output for Last 24 Hours 01/26/21 01/27/21 01/28/21 23:59 23:59 23:59 Intake Total 1900.25 / 1900.25 907.25 / 907.25 109.5 / 109.5 Output Total 550 / 550 Balance 1350.25 / 1350.25 907.25 / 907.25 109.5 / 109.5 General: Alert, Oriented x3 HEENT: Atraumatic Abdomen: Obese Extremities: No clubbing, No cyanosis, Diminished Peripheral Pulses, Edema, Tenderness - Ulceration areas Skin: Ulcer/ Wound - Bilateral lower extremity ulcerations to foot and leg. Posterior ankle and Achilles area ulcerations bilateral. Left is worse than right. Surrounding erythema noted. Granular and fibrotic and necrotic tissue noted to the wound bases. No change noted, - - Left fifth digit ulceration with dusky appearance, ulceration, concern for deeper infection. Largely granular base with serosanguineous drainage. Sluggish capillary refill time Musculoskeletal: Muscle Wasting, Tenderness - Duration areas Neurological: - - Lack of epicritic sensation consistent with neuropathy Psych/Mental Status: Normal Affect Microbiology Past 72 Hours 01/25/21 16:00 Wound - Left Foot Gram Stain - Final 01/25/21 16:00 Wound - Left Foot Wound Culture - Final Staphylococcus aureus Proteus hauseri 01/25/21 13:02 Blood Culture (Wb) - Right Forearm Blood Culture - Preliminary Staphylococcus aureus 01/25/21 12:40 Blood Culture (Wb) - Left Forearm Blood Culture - Preliminary No growth in 48 hours. Laboratory Results 01/27/21 11:54: POC Glucose 151 H 01/27/21 17:08: POC Glucose 205 H 01/27/21 22:55: POC Glucose 198 H 01/28/21 03:00: Random Vancomycin 23.3 H 01/28/21 03:00: Sodium 142, Potassium 3.7, Chloride 102, Carbon Dioxide 35.0 H, Anion Gap 5, BUN 74 H, Creatinine 2.04 H, Estim Creat Clear Calc 41.41, Est GFR (MDRD) Af Amer 42 L, Est GFR (MDRD) Non-Af 35 L, BUN/Creatinine Ratio 36.3 H, Glucose 118 H, Calcium 8.6 01/28/21 03:00: Hepatitis A IgM Ab Pending, Hep Bs Antigen Pending, Hep B Core IgM Ab Pending, Hepatitis C Ab (EIA) Pending 01/28/21 06:44: POC Glucose 135 H Current Medications Albuterol Sulfate (Albuterol 2.5 Mg/3 Ml Vial.Neb.) 2.5 mg INHALATION Q4H PRN PRN PRN Reason: Shortness of breath, wheezing Albuterol/Ipratropium (Ipratropium/Albuterol Sulfate 3 Ml Ampul.Neb) 3 ml INHALATION Q6H.RT [facility] Last Admin: 01/28/21 07:20 Dose: 3 ml Documented by: Aspirin (Aspirin E.C. 81 Mg Tablet) [facility] Last Admin: 01/27/21 12:01 Dose: 81 mg Documented by: Atenolol (Atenolol 50 Mg Tablet) 50 mg PO DAILY [facility] Last Admin: 01/27/21 12:09 Dose: 50 mg Documented by: Bumetanide (Bumetanide 2 Mg Tablet) 1 mg PO DAILY [facility] Last Admin: 01/27/21 14:52 Dose: 1 mg Documented by: Calamine/Phenol (Menthol/Lanolin/Calamine/Znox 113 Gm Tube) 1 applic TOPICAL BID [facility]; Protocol Last Admin: 01/27/21 22:45 Dose: 1 applicatio Documented by: Famotidine (Famotidine 20 Mg Tablet) 20 mg PO DAILY [facility] Last Admin: 01/27/21 12:01 Dose: 20 mg Documented by: Ferrous Sulfate (Ferrous Sulfate 325 Mg Tablet) 325 mg PO BIDCM [facility] Last Admin: 01/27/21 17:52 Dose: 325 mg Documented by: Gabapentin (Gabapentin 100 Mg Capsule) 200 mg PO DAILY [facility] Last Admin: 01/27/21 12:08 Dose: 200 mg Documented by: Glipizide (Glipizide 10 Mg Tablet) 10 mg PO DAILY@0730 [facility] Last Admin: 01/27/21 12:01 Dose: 10 mg Documented by: Sodium Chloride () 250 mls @ 15 mls/hr IV .[id number] PRN PRN Reason: Saline Flush Last Infusion: 01/28/21 06:41 Dose: 0 mls/hr Documented by: Sodium Chloride () 250 mls @ 15 mls/hr IV .[id number] PRN PRN Reason: Additional IVPB Infusion Piperacillin Sod/Tazobactam (Sod 3.375 gm/ Sodium Chloride) 50 mls @ 12.5 mls/hr IV Q8 [facility] Last Admin: 01/28/21 06:40 Dose: 12.5 mls/hr Documented by: Vancomycin IV Pharmacy to Dose (1 ea/ Sodium Chloride) 500 mls @ 250 mls/hr IV X1 PRN; Protocol PRN Reason: Rx to Dose Insulin Glargine (Insulin Glargine 100 Units/Ml Pen) 18 units SC DAILY [facility] Last Admin: 01/27/21 12:01 Dose: 18 units Documented by: Insulin Human Lispro (Insulin Lispro 100 Unit/Ml Insuln.Pen) 0 unit SC ACHS [facility]; Protocol Last Admin: 01/28/21 06:45 Dose: Not Given Documented by: L-Arginine/L-Glutamine/Calcium HMB (Juan (Unflavored) Packet) 1 packet PO BIDCM [facility] Last Admin: 01/27/21 17:52 Dose: 1 packet Documented by: Lactulose (Lactulose 20 Gm/30 Ml Udc) 20 gm PO TID [facility] Last Admin: 01/28/21 06:42 Dose: 20 gm Documented by: Nystatin (Nystatin Powder 15gm Bottle) 1 applic TOPICAL BID [facility]; Protocol Last Admin: 01/27/21 22:45 Dose: 1 applicatio Documented by: Ondansetron HCl (Ondansetron 4 Mg/2 Ml Vial) 4 mg IV Q8H PRN PRN PRN Reason: NAUSEA/VOMITING Oxycodone HCl (Oxycodone 5 Mg Tablet) 5 mg PO Q4H PRN PRN PRN Reason: Pain Score 4-10 Last Admin: 01/27/21 19:54 Dose: 5 mg Documented by: Paroxetine HCl (Paroxetine 20 Mg Tablet) 40 mg PO DAILY [facility] Last Admin: 01/27/21 12:00 Dose: 40 mg Documented by: Senna/Docusate Sodium (Senna/Docusate Sodium 1 Tablet) 2 tablet PO BID PRN PRN PRN Reason: Constipation Sodium Chloride (0.9% Saline Lock 10 Ml Syringe) 10 - 40 ml IV UD PRN PRN Reason: SALINE FLUSH Last Admin: 01/25/21 21:06 Dose: 10 ml Documented by: Sodium Hypochlorite (Dakin's Eleni Half Strength (=0.25%)) 1 applic TOPICAL DAILY [facility]; Protocol Last Admin: 01/27/21 11:57 Dose: 1 bottle Documented by: Tamsulosin HCl (Tamsulosin Hcl 0.4 Mg Capsule) 0.4 mg PO DAILY@1730 [facility] Last Admin: 01/27/21 17:53 Dose: 0.4 mg Documented by: Zolpidem Tartrate (Zolpidem Tartrate 5 Mg Tablet) 5 mg PO QHS PRN PRN PRN Reason: INSOMNIA Last Admin: 01/25/21 21:07 Dose: 5 mg Documented by: Medical Necessity - Tobacco Use Smoking Status: Current every day smoker Tobacco Use: Cigarettes Assessment/Plan All Active Problems (Last Updated 01/25/21 @ 14:[address] Mellissa Fonseca MD) Bacteremia (Acute) Cellulitis of left lower limb (Acute) Gangrene of toe of left foot (Acute) Hyperbilirubinemia (Acute) Liver cirrhosis (Acute) Acute kidney injury superimposed on CKD (Acute) Left leg cellulitis (Acute) Infected diabetic left leg ulcers (Acute) Left foot/ankle cellulitis with necrotic ulceration left 5th toe Chronic bilateral lower extremity ulcerations down to subcutaneous and fascia/tendon layers; including continued deterioration to bilateral posterior leg ulcer sites and exposed Achilles compared to last wound center visit Diabetes with peripheral neuropathy Peripheral vascular disease - chronic Tobacco Dependence Other multiple comorbidities: Atrial fibrillation, acute on chronic kidney disease, jaundice, thrombocytopenia, congestive heart failure, delayed healing, malnutrition Patient seen and examined Dakin wet-to-dry dressing was placed to all ulcers with overlying gauze, abdominal pads, Kerlix, and Joao wraps per nursing. To change daily. I recommend improvement offloading keep pressure off of these posterior leg sites by hanging his legs over pillows in bed if possible. Patient is noted to move his legs a lot during exam so this may not be feasible. Wound culture noted to be positive for staph aureus and proteus. Blood cultures are also growing staph. To continue antibiotics A consult was placed to Dr. Morgan from vascular surgery. Dr. Dotson verbally reviewed the case with Dr. Morgan previously at the time of his admission yesterday. 01/13/21 last arterial results showing mild to moderate arterial occlusive disease bilaterally. Patient may need further vascular intervention. Left foot/ankle/leg x-rays ordered. These were reviewed without soft tissue emphysema, foreign body, adjacent osseous destruction to the fifth toe bone structures. Soft tissue deficit is apparent consistent with ulcer location to the posterior leg. Foot MRI reviewed showing possible OM to 5th digit. MRI only captures forefoot so is unable to evaluate any deeper infection to leg ulcerations particularly ones to posterior leg bilaterally and anterior [place] left. Patient again advised tobacco cessation - reviewed rationale of this. Patient not interested in tobacco cessation and is well informed this is a risk factor that can lead to delayed healing, nonhealing, possible loss of limb, and/or premature . Reviewed importance of proper blood sugar control to help optimize healing as well. Medical management DVT prophylaxis per primary team is noted and appreciated. Overall his bilateral lower extremity wound and limb status is deteriorating. I discussed with him today that he is at risk for limb loss and his ability to heal is very guarded. He was previously on a palliative care type program in the outpatient setting, and had remained stable for an extended period of time. Now he has a status change and our primary goal is to control him from an infection status and allow his wounds to demarcate while he goes to the peripheral vascular updated work-up. Urgent surgical intervention is not recommended at this time to the lower extremities. Podiatry will continue to follow closely. Please do not hesitate to call if you have any questions. Macey Campbell DPM [facility] [phone]
[2021-01-28] MEDS: glipiZIDE 10 MG Tablet PO (08:12)
[2021-01-28] MEDS: Aspirin E.C. 81 MG Tablet PO (08:12)
[2021-01-28] MEDS: Ferrous Sulfate 325 MG Tablet PO ×2 (08:13→17:05)
[2021-01-28] MEDS: Juven (unflavored) Packet 1 PACKET PO ×2 (08:13→17:05)
[2021-01-28] MEDS: Gabapentin 100 MG Capsule 200 MG PO (08:14)
[2021-01-28] MEDS: Bumetanide 2 MG Tablet 1 MG PO (08:14)
[2021-01-28] MEDS: Famotidine 20 MG Tablet PO (08:15)
[2021-01-28] MEDS: Atenolol 50 MG Tablet PO (08:15)
[2021-01-28] MEDS: Paroxetine 20 MG Tablet 40 MG PO (08:15)
[2021-01-28 09:35] LABS: International Normalized Ratio 2.4; Prothrombin Time (Protime)PT. 25.5 SECONDS (11.7-14.9)
--- NOTE | 2021-01-28 10:00 | CASEMGMT ---
Palliative screening tool completed at this time due to Lace/strata score of 3. Patient meets criteria at this time. Hospitalist notified and agreeable for referral. YUN WING sent referral to Palliative Care.
--- NOTE | 2021-01-28 10:43 | PCM.PN.ID ---
Patient Problems: Active and Suspected Problems (Last Updated 01/25/21 @ 14:[address] Mellissa Fonseca MD) Bacteremia (Acute) Subjective: Feeling better, no fever, no n/v/d - Physical Exam Vitals/I&O's: Vital Signs Temp Pulse Resp BP Pulse Ox 97.6 F L 105 H 18 130/87 H 98 01/28/21 07:32 01/28/21 07:32 01/28/21 07:32 01/28/21 07:32 01/28/21 07:32 Oxygen Flow Rate (L/min) 2 Oxygen Delivery Method Nasal Cannula Weight: 120.882 kg Body Mass Index (BMI) 34.2 Finger Stick Blood Glucose 155 Intake and Output for Last 24 Hours 01/26/21 01/27/21 01/28/21 23:59 23:59 23:59 Intake Total 1900.25 / 1900.25 907.25 / 907.25 109.5 / 109.5 Output Total 550 / 550 Balance 1350.25 / 1350.25 907.25 / 907.25 109.5 / 109.5 General: Alert, Cooperative, No apparent distress Lungs: Clear to auscultation, Normal air movement Cardiovascular: Regular rate, Regular Rhythm Abdomen: Soft, Non Tender, Non-Distended Skin: Ulcer/ Wound Microbiology Past 72 Hours 01/25/21 16:00 Wound - Left Foot Gram Stain - Final 01/25/21 16:00 Wound - Left Foot Wound Culture - Final Staphylococcus aureus Proteus hauseri 01/25/21 16:00 Wound - Left Foot Anaerobic Culture - Preliminary Checking for anaerobes, further studies to follow. 01/25/21 13:02 Blood Culture (Wb) - Right Forearm Blood Culture - Preliminary Staphylococcus aureus 01/25/21 12:40 Blood Culture (Wb) - Left Forearm Blood Culture - Preliminary No growth in 48 hours. Laboratory Results 01/27/21 11:54: POC Glucose 151 H 01/27/21 17:08: POC Glucose 205 H 01/27/21 22:55: POC Glucose 198 H 01/28/21 03:00: Random Vancomycin 23.3 H 01/28/21 03:00: Sodium 142, Potassium 3.7, Chloride 102, Carbon Dioxide 35.0 H, Anion Gap 5, BUN 74 H, Creatinine 2.04 H, Estim Creat Clear Calc 41.41, Est GFR (MDRD) Af Amer 42 L, Est GFR (MDRD) Non-Af 35 L, BUN/Creatinine Ratio 36.3 H, Glucose 118 H, Calcium 8.6 01/28/21 03:00: Hepatitis A IgM Ab Pending, Hep Bs Antigen Pending, Hep B Core IgM Ab Pending, Hepatitis C Ab (EIA) Pending 01/28/21 06:44: POC Glucose 135 H 01/28/21 09:15: PT 25.5 H, INR 2.4 Current Medications Albuterol Sulfate (Albuterol 2.5 Mg/3 Ml Vial.Neb.) 2.5 mg INHALATION Q4H PRN PRN PRN Reason: Shortness of breath, wheezing Albuterol/Ipratropium (Ipratropium/Albuterol Sulfate 3 Ml Ampul.Neb) 3 ml INHALATION Q6H.RT [facility] Last Admin: 01/28/21 07:20 Dose: 3 ml Documented by: Aspirin (Aspirin E.C. 81 Mg Tablet) [facility] Last Admin: 01/28/21 08:12 Dose: 81 mg Documented by: Atenolol (Atenolol 50 Mg Tablet) 50 mg PO DAILY [facility] Last Admin: 01/28/21 08:15 Dose: 50 mg Documented by: Bumetanide (Bumetanide 2 Mg Tablet) 1 mg PO DAILY [facility] Last Admin: 01/28/21 08:14 Dose: 1 mg Documented by: Calamine/Phenol (Menthol/Lanolin/Calamine/Znox 113 Gm Tube) 1 applic TOPICAL BID [facility]; Protocol Last Admin: 01/27/21 22:45 Dose: 1 applicatio Documented by: Famotidine (Famotidine 20 Mg Tablet) 20 mg PO DAILY [facility] Last Admin: 01/28/21 08:15 Dose: 20 mg Documented by: Ferrous Sulfate (Ferrous Sulfate 325 Mg Tablet) [facility] Last Admin: 01/28/21 08:13 Dose: 325 mg Documented by: Gabapentin (Gabapentin 100 Mg Capsule) 200 mg PO DAILY [facility] Last Admin: 01/28/21 08:14 Dose: 200 mg Documented by: Glipizide (Glipizide 10 Mg Tablet) 10 mg PO DAILY@0730 [facility] Last Admin: 01/28/21 08:12 Dose: 10 mg Documented by: Sodium Chloride () 250 mls @ 15 mls/hr IV .[id number] PRN PRN Reason: Saline Flush Last Infusion: 01/28/21 06:41 Dose: 0 mls/hr Documented by: Sodium Chloride () 250 mls @ 15 mls/hr IV .[id number] PRN PRN Reason: Additional IVPB Infusion Piperacillin Sod/Tazobactam (Sod 3.375 gm/ Sodium Chloride) 50 mls @ 12.5 mls/hr IV Q8 [facility] Last Admin: 01/28/21 06:40 Dose: 12.5 mls/hr Documented by: Insulin Glargine (Insulin Glargine 100 Units/Ml Pen) 18 units SC DAILY [facility] Last Admin: 01/27/21 12:01 Dose: 18 units Documented by: Insulin Human Lispro (Insulin Lispro 100 Unit/Ml Insuln.Pen) 0 unit SC ACHS [facility]; Protocol Last Admin: 01/28/21 06:45 Dose: Not Given Documented by: L-Arginine/L-Glutamine/Calcium HMB (Juan (Unflavored) Packet) 1 packet PO BIDCM [facility] Last Admin: 01/28/21 08:13 Dose: 1 packet Documented by: Lactulose (Lactulose 20 Gm/30 Ml Udc) 20 gm PO TID [facility] Last Admin: 01/28/21 06:42 Dose: 20 gm Documented by: Nystatin (Nystatin Powder 15gm Bottle) 1 applic TOPICAL BID [facility]; Protocol Last Admin: 01/27/21 22:45 Dose: 1 applicatio Documented by: Ondansetron HCl (Ondansetron 4 Mg/2 Ml Vial) 4 mg IV Q8H PRN PRN PRN Reason: NAUSEA/VOMITING Oxycodone HCl (Oxycodone 5 Mg Tablet) 5 mg PO Q4H PRN PRN PRN Reason: Pain Score 4-10 Last Admin: 01/27/21 19:54 Dose: 5 mg Documented by: Paroxetine HCl (Paroxetine 20 Mg Tablet) 40 mg PO DAILY [facility] Last Admin: 01/28/21 08:15 Dose: 40 mg Documented by: Senna/Docusate Sodium (Senna/Docusate Sodium 1 Tablet) 2 tablet PO BID PRN PRN PRN Reason: Constipation Sodium Chloride (0.9% Saline Lock 10 Ml Syringe) 10 - 40 ml IV UD PRN PRN Reason: SALINE FLUSH Last Admin: 01/25/21 21:06 Dose: 10 ml Documented by: Sodium Hypochlorite (Dakin's Eleni Half Strength (=0.25%)) 1 applic TOPICAL DAILY [facility]; Protocol Last Admin: 01/27/21 11:57 Dose: 1 bottle Documented by: Tamsulosin HCl (Tamsulosin Hcl 0.4 Mg Capsule) 0.4 mg PO DAILY@1730 [facility] Last Admin: 01/27/21 17:53 Dose: 0.4 mg Documented by: Zolpidem Tartrate (Zolpidem Tartrate 5 Mg Tablet) 5 mg PO QHS PRN PRN PRN Reason: INSOMNIA Last Admin: 01/25/21 21:07 Dose: 5 mg Documented by: Medical Necessity - Tobacco Use Smoking Status: Current every day smoker Tobacco Use: Cigarettes Route of nutrition/ use of supplements: [] Nutritional Intake: [] IV Site: [] Aponte Catheter: [] - Assessment/Plan Antibiotics: [] Assessment/Plan: [] MSSA bacteremia due to L toe osteo - h/o ckd, cirrhosis, foot osteo, CHF, PAD, ? vasculitis. Had neg rheum panel on 12/2020. Follows at wound care, recently seen for wound with exposed tendon in L hand. Podiatry following; L foot cx with mssa. TTE neg for veg. Stop vanc. Repeat bcx today. Cont zosyn. Plan on 6 weeks iv abx at discharge, no picc until bcx clear. Hep panel pending. Will follow
[2021-01-28] MEDS: DAKIN'S SOL HALF STRENGTH (=0.25%) 1 APPLIC TOPICAL (11:51)
[2021-01-28] MEDS: Menthol/Lanolin/Calamine/Znox 113 GM Tube 1 APPLIC TOPICAL ×2 (11:52→22:04)
[2021-01-28] MEDS: Nystatin Powder 15gm Bottle 1 APPLIC TOPICAL ×2 (11:52→22:05)
[2021-01-28 12:26] LABS: Bedside Glucose 125 mg/dL (70-110)
--- NOTE | 2021-01-28 15:21 | PCM.CONS.R ---
Consultation - Renal 01/28/21 PCP/ Referring MD: Requesting physician: [] Primary care physician: Dr. Hong Sparks MD Reason for Consultation:: CKD stage 3B - History of Present Illness History of Present Illness: The patient is a 65 year old M with multiple medical problems including DMT2, PAD, tobacco dependence, alcohol use, afib on anticoagulation, chronic lower extremity foot infection presented to the ER on 01/25 for right foot infection, redness, swelling for a week. He is non-ambulatory at baseline, only gets up to pivot and transfers on a board according to the who has been dressing his wounds at home. He has been followed in wound center and podiatry where his wounds have been healing until recently they started to open up. No recent debridement. No recent iv contrast exposure. He is currently on iv antibiotics with vanco switched to pip/tazo managed by ID. Denied fever, chills.WBC 11.7 with 1 of 2 blood cx staph aureus on 01/25, repeat on 01/27 and 01/28 pending. Consulted for CKD. Baseline creatinine 1.4 in 2017 when he was last seen on consult for Acute on CKD during hospitalization for osteo of foot, 1.7 in 2019. Creatinine 2 range during currently hospitalization. Renal US and CT abdomen w/o iv contrast showed multiple renal cysts bilaterallly. He has chronic pulmonary hypertension, MVR, moderate RV systolic dysfunction and GERRADO, Edema in legs stable on bumex daily. He is confused at times per pt spouse at bedside. He is unable to provide history. He has a chronic tremor in his hands, dusky fingers/digits and tip of nose, cheeks. Sugars at home have been stable. - Allergies Allergies: Allergies No Known Allergies Allergy (Verified 01/25/21 12:06) - Current Medications Current Medications: Current Medications Albuterol Sulfate (Albuterol 2.5 Mg/3 Ml Vial.Neb.) 2.5 mg INHALATION Q4H PRN PRN PRN Reason: Shortness of breath, wheezing Albuterol/Ipratropium (Ipratropium/Albuterol Sulfate 3 Ml Ampul.Neb) 3 ml INHALATION Q6H.RT [facility] Last Admin: 01/28/21 13:28 Dose: 3 ml Documented by: Aspirin (Aspirin E.C. 81 Mg Tablet) 81 mg PO DAILYCM [facility] Last Admin: 01/28/21 08:12 Dose: 81 mg Documented by: Atenolol (Atenolol 50 Mg Tablet) 50 mg PO DAILY [facility] Last Admin: 01/28/21 08:15 Dose: 50 mg Documented by: Bumetanide (Bumetanide 2 Mg Tablet) 1 mg PO DAILY [facility] Last Admin: 01/28/21 08:14 Dose: 1 mg Documented by: Calamine/Phenol (Menthol/Lanolin/Calamine/Znox 113 Gm Tube) 1 applic TOPICAL BID [facility]; Protocol Last Admin: 01/28/21 11:52 Dose: 1 applicatio Documented by: Famotidine (Famotidine 20 Mg Tablet) 20 mg PO DAILY [facility] Last Admin: 01/28/21 08:15 Dose: 20 mg Documented by: Ferrous Sulfate (Ferrous Sulfate 325 Mg Tablet) [facility] Last Admin: 01/28/21 08:13 Dose: 325 mg Documented by: Gabapentin (Gabapentin 100 Mg Capsule) 200 mg PO DAILY [facility] Last Admin: 01/28/21 08:14 Dose: 200 mg Documented by: Glipizide (Glipizide 10 Mg Tablet) 10 mg PO DAILY@0730 [facility] Last Admin: 01/28/21 08:12 Dose: 10 mg Documented by: Sodium Chloride () 250 mls @ 15 mls/hr IV .[id number] PRN PRN Reason: Saline Flush Last Infusion: 01/28/21 06:41 Dose: 0 mls/hr Documented by: Sodium Chloride () 250 mls @ 15 mls/hr IV .[id number] PRN PRN Reason: Additional IVPB Infusion Piperacillin Sod/Tazobactam (Sod 3.375 gm/ Sodium Chloride) 50 mls @ 12.5 mls/hr IV Q8 [facility] Last Admin: 01/28/21 14:55 Dose: 12.5 mls/hr Documented by: Insulin Glargine (Insulin Glargine 100 Units/Ml Pen) 18 units SC DAILY [facility] Last Admin: 01/28/21 11:53 Dose: 18 units Documented by: Insulin Human Lispro (Insulin Lispro 100 Unit/Ml Insuln.Pen) 0 unit SC ACHS [facility]; Protocol Last Admin: 01/28/21 11:48 Dose: Not Given Documented by: L-Arginine/L-Glutamine/Calcium HMB (Juan (Unflavored) Packet) 1 packet PO BIDCM [facility] Last Admin: 01/28/21 08:13 Dose: 1 packet Documented by: Lactulose (Lactulose 20 Gm/30 Ml Udc) 20 gm PO TID [facility] Last Admin: 01/28/21 14:56 Dose: Not Given Documented by: Nystatin (Nystatin Powder 15gm Bottle) 1 applic TOPICAL BID [facility]; Protocol Last Admin: 01/28/21 11:52 Dose: 1 applicatio Documented by: Ondansetron HCl (Ondansetron 4 Mg/2 Ml Vial) 4 mg IV Q8H PRN PRN PRN Reason: NAUSEA/VOMITING Oxycodone HCl (Oxycodone 5 Mg Tablet) 5 mg PO Q4H PRN PRN PRN Reason: Pain Score 4-10 Last Admin: 01/27/21 19:54 Dose: 5 mg Documented by: Paroxetine HCl (Paroxetine 20 Mg Tablet) 40 mg PO DAILY [facility] Last Admin: 01/28/21 08:15 Dose: 40 mg Documented by: Senna/Docusate Sodium (Senna/Docusate Sodium 1 Tablet) 2 tablet PO BID PRN PRN PRN Reason: Constipation Sodium Chloride (0.9% Saline Lock 10 Ml Syringe) 10 - 40 ml IV UD PRN PRN Reason: SALINE FLUSH Last Admin: 01/25/21 21:06 Dose: 10 ml Documented by: Sodium Hypochlorite (Dakin's Eleni Half Strength (=0.25%)) 1 applic TOPICAL DAILY [facility]; Protocol Last Admin: 01/28/21 11:51 Dose: 1 applicatio Documented by: Tamsulosin HCl (Tamsulosin Hcl 0.4 Mg Capsule) 0.4 mg PO DAILY@1730 [facility] Last Admin: 01/27/21 17:53 Dose: 0.4 mg Documented by: Zolpidem Tartrate (Zolpidem Tartrate 5 Mg Tablet) 5 mg PO QHS PRN PRN PRN Reason: INSOMNIA Last Admin: 01/25/21 21:07 Dose: 5 mg Documented by: - Past Medical History Past Medical History (Chronic Problems): Chronic Problems (Last Updated 01/25/21 @ 14:[address] Mellissa Fonseca MD) Open wound of left hand (Chronic) History of alcohol abuse (Chronic) Smoking addiction (Chronic) PAD (peripheral artery disease) (Chronic) 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) 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) Chronic systolic (congestive) heart failure (Chronic) Chronic kidney disease (Chronic) Dilated cardiomyopathy (Chronic) Nonrheumatic mitral (valve) insufficiency (Chronic) Paroxysmal atrial fibrillation (Chronic) CVA (cerebral vascular accident) (Chronic) Hyperlipidemia (Chronic) Essential (primary) hypertension (Chronic) Secondary pulmonary arterial hypertension (Chronic) Skin ulcer of right knee with fat layer exposed (Chronic) Skin ulcer of left knee with fat layer exposed (Chronic) 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 Anticipate Stage III or IV if excision done. Right ischial pressure sore, stage 2 (Chronic) at least a Stage II. Anticipate Stage III or IV if excision done. Pressure ulcer of sacral region, stage 2 (Chronic) at least a Stage II. Anticipate Stage III or IV if excision done. Vasculitis (Chronic) PVD (peripheral vascular disease) (Chronic) Anemia (Chronic) Cardiomyopathy (Chronic) 47 % EF in 2013 CVA, old, hemiparesis (Chronic) left side weakness....stroke in 2013 BPH (benign prostatic hyperplasia) (Chronic) Urinary incontinence (Chronic) Ulcer of right lower extremity with fat layer exposed (Chronic) 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) Osteomyelitis (Chronic) Malnutrition (Chronic) DM2 (diabetes mellitus, type 2) (Chronic) Depression (Chronic) Chronic low back pain (Chronic) - Past Surgical History Surgical History: tonsillectomy - Social History Smoking Status: Current every day smoker Alcohol: None Drugs: None - Family History Paternal Family History: Family History (Last Updated 09/28/18 @ 12:35 by Geraldine Steele) Father Heart disease Mother CVA (cerebral vascular accident) History Items: Heart Disease - His father had atrial fibrillation and an AICD/pacemaker Maternal Family History: Family History (Last Updated 09/28/18 @ 12:35 by Geraldine Steele) Father Heart disease Mother CVA (cerebral vascular accident) History Items: Diabetes - His mother had severe diabetes mellitus and had amputations of her lower extremities. Review of Systems Constitutional: Reports: Weakness - chronic, Fatigue - chronic. Denies: Anorexia, Chills, Fever HEENT: Denies: Head Aches Cardiovascular: Denies: Chest Pain, Edema Respiratory: Denies: Shortness of Breath Gastrointestinal: Reports: - - appetite good. Denies: Abdominal Pain, Nausea, Vomiting Musculoskeletal: Reports: - - foot ulcers. Denies: Joint swelling Neurological: Reports: Balance problems, - - nonambulatory, able to transfer, pivot, gen weakness Psychiatric: Denies: Anxiety, Depression Endocrine: Denies: Polydipsia, Polyuria Hematologic/ Lymphatic: Reports: Anemia Patient Problems: Active and Suspected Problems (Last Updated 01/25/21 @ 14:[address] Mellissa Fonseca MD) Bacteremia (Acute) - Physical Exam Vitals/I&O's: Vital Signs Temp Pulse Resp BP Pulse Ox 97.3 F L 103 H 16 152/95 H 98 01/28/21 15:03 01/28/21 15:03 01/28/21 15:03 01/28/21 15:03 01/28/21 15:03 Oxygen Flow Rate (L/min) 2 Oxygen Delivery Method Room Air Weight: 120.882 kg Body Mass Index (BMI) 34.2 Finger Stick Blood Glucose 155 Intake and Output for Last 24 Hours 01/26/21 01/27/21 01/28/21 23:59 23:59 23:59 Intake Total 1900.25 / 1900.25 907.25 / 907.25 159.5 / 159.5 Output Total 550 / 550 Balance 1350.25 / 1350.25 907.25 / 907.25 159.5 / 159.5 General: Alert, Confused, - - awake, responsive, poor historian HEENT: PERRLA, EOMI, - - dusky nose, cheeks Oral: Dry Mucosa Lungs: Clear to auscultation, Diminished Abdomen: Bowel Sounds Present, Soft, Non Tender, Non-Distended, Obese Extremities: Edema - trace, mild erythema of BLE, feet wrapped, digits cyanotic in hands Skin: - - cyanotic fingers, nose Musculoskeletal: Muscle Wasting, - - gen weakness Neurological: - - gen weakness, limited exam, tremor BUE Psych/Mental Status: - - confused, poor historian Microbiology Past 72 Hours 01/25/21 16:00 Wound - Left Foot Gram Stain - Final 01/25/21 16:00 Wound - Left Foot Wound Culture - Final Staphylococcus aureus Proteus hauseri 01/25/21 16:00 Wound - Left Foot Anaerobic Culture - Preliminary Checking for anaerobes, further studies to follow. 01/25/21 13:02 Blood Culture (Wb) - Right Forearm Blood Culture - Preliminary Staphylococcus aureus 01/25/21 12:40 Blood Culture (Wb) - Left Forearm Blood Culture - Preliminary No growth in 48 hours. Laboratory Results 01/27/21 17:08: POC Glucose 205 H 01/27/21 22:55: POC Glucose 198 H 01/28/21 03:00: Random Vancomycin 23.3 H 01/28/21 03:00: Sodium 142, Potassium 3.7, Chloride 102, Carbon Dioxide 35.0 H, Anion Gap 5, BUN 74 H, Creatinine 2.04 H, Estim Creat Clear Calc 41.41, Est GFR (MDRD) Af Amer 42 L, Est GFR (MDRD) Non-Af 35 L, BUN/Creatinine Ratio 36.3 H, Glucose 118 H, Calcium 8.6 01/28/21 03:00: Hepatitis A IgM Ab Pending, Hep Bs Antigen Pending, Hep B Core IgM Ab Pending, Hepatitis C Ab (EIA) Pending 01/28/21 06:44: POC Glucose 135 H 01/28/21 09:15: PT 25.5 H, INR 2.4 01/28/21 11:47: POC Glucose 125 H Clinical Impression(s) from Imaging Studies Lower Extremity MRI 01/27/21 10:42 IMPRESSION: Limited study secondary to patient motion. 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 Arthrosis of the first metatarsophalangeal joint. Electronically Signed: London Long MD at 7:25 EST Tel , Service support , Current Medications Albuterol Sulfate (Albuterol 2.5 Mg/3 Ml Vial.Neb.) 2.5 mg INHALATION Q4H PRN PRN PRN Reason: Shortness of breath, wheezing Albuterol/Ipratropium (Ipratropium/Albuterol Sulfate 3 Ml Ampul.Neb) 3 ml INHALATION Q6H.RT [facility] Last Admin: 01/28/21 13:28 Dose: 3 ml Documented by: Aspirin (Aspirin E.C. 81 Mg Tablet) 81 mg PO DAILYCM [facility] Last Admin: 01/28/21 08:12 Dose: 81 mg Documented by: Atenolol (Atenolol 50 Mg Tablet) 50 mg PO DAILY [facility] Last Admin: 01/28/21 08:15 Dose: 50 mg Documented by: Bumetanide (Bumetanide 2 Mg Tablet) 1 mg PO DAILY [facility] Last Admin: 01/28/21 08:14 Dose: 1 mg Documented by: Calamine/Phenol (Menthol/Lanolin/Calamine/Znox 113 Gm Tube) 1 applic TOPICAL BID [facility]; Protocol Last Admin: 01/28/21 11:52 Dose: 1 applicatio Documented by: Famotidine (Famotidine 20 Mg Tablet) 20 mg PO DAILY [facility] Last Admin: 01/28/21 08:15 Dose: 20 mg Documented by: Ferrous Sulfate (Ferrous Sulfate 325 Mg Tablet) [facility] Last Admin: 01/28/21 08:13 Dose: 325 mg Documented by: Gabapentin (Gabapentin 100 Mg Capsule) 200 mg PO DAILY [facility] Last Admin: 01/28/21 08:14 Dose: 200 mg Documented by: Glipizide (Glipizide 10 Mg Tablet) 10 mg PO DAILY@0730 [facility] Last Admin: 01/28/21 08:12 Dose: 10 mg Documented by: Sodium Chloride () 250 mls @ 15 mls/hr IV .[id number] PRN PRN Reason: Saline Flush Last Infusion: 01/28/21 06:41 Dose: 0 mls/hr Documented by: Sodium Chloride () 250 mls @ 15 mls/hr IV .[id number] PRN PRN Reason: Additional IVPB Infusion Piperacillin Sod/Tazobactam (Sod 3.375 gm/ Sodium Chloride) 50 mls @ 12.5 mls/hr IV Q8 [facility] Last Admin: 01/28/21 14:55 Dose: 12.5 mls/hr Documented by: Insulin Glargine (Insulin Glargine 100 Units/Ml Pen) 18 units SC DAILY [facility] Last Admin: 01/28/21 11:53 Dose: 18 units Documented by: Insulin Human Lispro (Insulin Lispro 100 Unit/Ml Insuln.Pen) 0 unit SC ACHS [facility]; Protocol Last Admin: 01/28/21 11:48 Dose: Not Given Documented by: L-Arginine/L-Glutamine/Calcium HMB (Juan (Unflavored) Packet) 1 packet PO BIDCM [facility] Last Admin: 01/28/21 08:13 Dose: 1 packet Documented by: Lactulose (Lactulose 20 Gm/30 Ml Udc) 20 gm PO TID [facility] Last Admin: 01/28/21 14:56 Dose: Not Given Documented by: Nystatin (Nystatin Powder 15gm Bottle) 1 applic TOPICAL BID [facility]; Protocol Last Admin: 01/28/21 11:52 Dose: 1 applicatio Documented by: Ondansetron HCl (Ondansetron 4 Mg/2 Ml Vial) 4 mg IV Q8H PRN PRN PRN Reason: NAUSEA/VOMITING Oxycodone HCl (Oxycodone 5 Mg Tablet) 5 mg PO Q4H PRN PRN PRN Reason: Pain Score 4-10 Last Admin: 01/27/21 19:54 Dose: 5 mg Documented by: Paroxetine HCl (Paroxetine 20 Mg Tablet) 40 mg PO DAILY [facility] Last Admin: 01/28/21 08:15 Dose: 40 mg Documented by: Senna/Docusate Sodium (Senna/Docusate Sodium 1 Tablet) 2 tablet PO BID PRN PRN PRN Reason: Constipation Sodium Chloride (0.9% Saline Lock 10 Ml Syringe) 10 - 40 ml IV UD PRN PRN Reason: SALINE FLUSH Last Admin: 01/25/21 21:06 Dose: 10 ml Documented by: Sodium Hypochlorite (Dakin's Eleni Half Strength (=0.25%)) 1 applic TOPICAL DAILY [facility]; Protocol Last Admin: 01/28/21 11:51 Dose: 1 applicatio Documented by: Tamsulosin HCl (Tamsulosin Hcl 0.4 Mg Capsule) 0.4 mg PO DAILY@1730 [facility] Last Admin: 01/27/21 17:53 Dose: 0.4 mg Documented by: Zolpidem Tartrate (Zolpidem Tartrate 5 Mg Tablet) 5 mg PO QHS PRN PRN PRN Reason: INSOMNIA Last Admin: 01/25/21 21:07 Dose: 5 mg Documented by: Assessment/Plan All Active Problems (Last Updated 01/25/21 @ 14:[address] Mellissa Fonseca MD) Bacteremia (Acute) Cellulitis of left lower limb (Acute) Gangrene of toe of left foot (Acute) Hyperbilirubinemia (Acute) Liver cirrhosis (Acute) Acute kidney injury superimposed on CKD (Acute) Left leg cellulitis (Acute) Infected diabetic left leg ulcers (Acute) 1. CKD stage 3 underlying diabetic, polycystic kidney disease. Creatinine in 2 range eGFR 30cc/min. Creatinine 1.4 in 2018, 1.7 in 2019. Suspect progressive renal failure. Lost to f/u after 2018. Discussed with pt spouse at bedside re: dialysis with eGFR <15cc/min with history of diabetes. Since pt is DNRCCA would not recommend dialysis when he reaches end stage due to sedentary life, multiple comorbidities, chronic foot infection. Pt at risk for contrast nephropathy if pursue angiogram due to CKD and diabetes 2. Bacteremia with diabetic foot infection, PAD, poor circulation with cyanotic digits, nose. Iv antibx managed by ID 3. DM type 2 4. moderate pulmonary hypertension, RV dysfunction. edema BLE stable on bumex daily 5. HTN stable 6 .Chronic afib on anticoagulation
[2021-01-28 16:56] LABS: Bedside Glucose 209 mg/dL (70-110)
[2021-01-28] MEDS: Insulin Lispro 100 UNIT/ML INSULN.PEN SC (17:04)
[2021-01-28] MEDS: Tamsulosin HCl 0.4 MG Capsule PO (17:05)
[2021-01-28] MEDS: Zolpidem Tartrate 5 MG Tablet PO (22:06)
[2021-01-28 23:01] LABS: Bedside Glucose 80 mg/dL (70-110)
[2021-01-29] VITALS (15 sets, daily range): BP systolic 116–143; BP diastolic 79–94; PULSE 89–126; RESP 18–24; TEMP 36.4–37.3; O2SAT 94–99
[2021-01-29 03:42] LABS: Hematocrit 48.2 % (40-54); Mean Corpuscular Hgb 30.4 pg (27.0-32.0); Mean Corpuscular Volume 104.8 fL (80-94); Mean Platelet Vol. 12.6 fl (6.2-12.0); POSITIVE MORPHOLOGY YES; Platelet Count 104 K/mm3 (150-450); RBC Distribution Width CV 19.1 % (11.6-14.6); RBC Distribution Width SD 71.3 fl (35.1-43.9); White Blood Count 8.4 K/mm3 (4.4-11.0)
[2021-01-29 04:02] LABS: Anion Gap 6 (5-15); BUN 70 mg/dL (7-18); BUN/Creat Ratio 33.7 RATIO (10-20); Calcium,Total 8.9 mg/dL (8.5-10.1); Chloride 103 mmol/L (98-107); Creatinine, Serum 2.08 mg/dL (0.70-1.30); EST Glomerular Filtration Rate 34 mL/min (>60); Est Glom Filt Rate - Afr Amer 41 mL/min (>60); Estimated Creatinine Clearance 40.62 ml/min; Glucose 70 mg/dL (74-106); Magnesium 2.3 mg/dL (1.6-2.6); Potassium 3.9 mmol/L (3.5-5.1); Sodium Level 144 mmol/L (136-145)
[2021-01-29 04:05] LABS: Vancomycin, Random Level 15.7 ug/mL (0.0-15.0)
[2021-01-29 04:06] LABS: Scan Indicated on CBC? Y/N YES- FLAGS NOTED
[2021-01-29 04:15] LABS: International Normalized Ratio 1.9; Prothrombin Time (Protime)PT. 21.5 SECONDS (11.7-14.9)
[2021-01-29] MEDS: Metoprolol Tartrate 50 MG Tablet PO ×3 (04:32→21:20)
[2021-01-29] MEDS: Lactulose 20 GM/30 ML UDC PO ×3 (05:34→21:20)
--- NOTE | 2021-01-29 06:59 | NURSING ---
blood sugar 66mg/dL this morning. gave patient 60ml apple juice and 240ml milk. recheck 76mg/dL
[2021-01-29 07:05] LABS: Bedside Glucose 66 mg/dL (70-110)
[2021-01-29 07:05] LABS: Bedside Glucose 76 mg/dL (70-110)
[2021-01-29] MEDS: Ipratropium/Albuterol Sulfate 3 ML AMPUL.NEB INHALATION ×2 (07:37→13:29)
--- NOTE | 2021-01-29 08:06 | PCM.PN.HOSP ---
Patient Problems: Active and Suspected Problems (Last Reviewed 01/29/21 @ 09:[address] Sandoval Morgan MD) Bacteremia (Acute) Reason for Visit: Diabetic foot wounds/ulcers Subjective: Seen and evaluated by Dr. Morgan with vascular surgery no vascular intervention planned at this time Objective: GENERAL: cooperative HEENT: Atraumatic; EYES; Anicteric, Normal Conjunctiva NECK; supple, normal thyroid, RESPIRATORY: Diminished to auscultation CARDIOVASCULAR: Regular S1 S2, GI: soft, normoactive bowel sounds, : No Renal angle tenderness; EXTREMITIES: Left fifth toe necrosis, and plantar surface of the right foot as well as heel MUSCULOSKELETAL: no muscle waisting NEURO: Awake; no lateralizing signs. SKIN: As described above PSYCH; Flat affect Vitals/I&O's: Vital Signs Temp Pulse Resp BP Pulse Ox 97.5 F L 100 20 H 119/83 H 96 01/29/21 05:32 01/29/21 08:00 01/29/21 05:32 01/29/21 05:32 01/29/21 05:32 Oxygen Flow Rate (L/min) 1 Oxygen Delivery Method Nasal Cannula Weight: 120.882 kg Body Mass Index (BMI) 34.2 Finger Stick Blood Glucose 155 Intake and Output for Last 24 Hours 01/27/21 01/28/21 01/29/21 23:59 23:59 23:59 Intake Total 907.25 / 907.25 609.5 / 609.5 402.75 / 402.75 Output Total 0 / 0 Balance 907.25 / 907.25 609.5 / 609.5 402.75 / 402.75 Microbiology Past 72 Hours 01/27/21 10:00 Blood Culture (Wb) - Left Forearm Blood Culture - Preliminary No growth in 48 hours. 01/25/21 16:00 Wound - Left Foot Gram Stain - Final 01/25/21 16:00 Wound - Left Foot Wound Culture - Final Staphylococcus aureus Proteus hauseri 01/25/21 16:00 Wound - Left Foot Anaerobic Culture - Preliminary Checking for anaerobes, further studies to follow. 01/25/21 13:02 Blood Culture (Wb) - Right Forearm Blood Culture - Preliminary Staphylococcus aureus 01/25/21 12:40 Blood Culture (Wb) - Left Forearm Blood Culture - Preliminary No growth in 48 hours. Laboratory Results 01/28/21 09:15: PT 25.5 H, INR 2.4 01/28/21 11:47: POC Glucose 125 H 01/28/21 16:48: POC Glucose 209 H 01/28/21 22:10: POC Glucose 80 01/29/21 03:18: Random Vancomycin 15.7 H 01/29/21 03:18: WBC 8.4, RBC 4.60, Hgb 14.0, Hct 48.2, MCV 104.8 H, MCH 30.4, MCHC 29.0 L, RDW Std Deviation 71.3 H, RDW Coeff of Iban 19.1 H, Plt Count 104 L, MPV 12.6 H 01/29/21 03:18: Sodium 144, Potassium 3.9, Chloride 103, Carbon Dioxide 35.0 H, Anion Gap 6, BUN 70 H, Creatinine 2.08 H, Estim Creat Clear Calc 40.62, Est GFR (MDRD) Af Amer 41 L, Est GFR (MDRD) Non-Af 34 L, BUN/Creatinine Ratio 33.7 H, Glucose 70 L, Calcium 8.9, Magnesium 2.3 01/29/21 03:18: PT 21.5 H, INR 1.9 01/29/21 06:31: POC Glucose 66 L 01/29/21 06:58: POC Glucose 76 Current Medications Albuterol Sulfate (Albuterol 2.5 Mg/3 Ml Vial.Neb.) 2.5 mg INHALATION Q4H PRN PRN PRN Reason: Shortness of breath, wheezing Albuterol/Ipratropium (Ipratropium/Albuterol Sulfate 3 Ml Ampul.Neb) 3 ml INHALATION Q6H.RT [facility] Last Admin: 01/29/21 07:37 Dose: 3 ml Documented by: Aspirin (Aspirin E.C. 81 Mg Tablet) [facility] Last Admin: 01/28/21 08:12 Dose: 81 mg Documented by: Bumetanide (Bumetanide 2 Mg Tablet) 1 mg PO DAILY [facility] Last Admin: 01/28/21 08:14 Dose: 1 mg Documented by: Calamine/Phenol (Menthol/Lanolin/Calamine/Znox 113 Gm Tube) 1 applic TOPICAL BID [facility]; Protocol Last Admin: 01/28/21 22:04 Dose: 1 applicatio Documented by: Famotidine (Famotidine 20 Mg Tablet) 20 mg PO DAILY [facility] Last Admin: 01/28/21 08:15 Dose: 20 mg Documented by: Ferrous Sulfate (Ferrous Sulfate 325 Mg Tablet) 325 mg PO BIDCM [facility] Last Admin: 01/28/21 17:05 Dose: 325 mg Documented by: Gabapentin (Gabapentin 100 Mg Capsule) 200 mg PO DAILY [facility] Last Admin: 01/28/21 08:14 Dose: 200 mg Documented by: Sodium Chloride () 250 mls @ 15 mls/hr IV .[id number] PRN PRN Reason: Saline Flush Last Infusion: 01/29/21 05:35 Dose: 0 mls/hr Documented by: Sodium Chloride () 250 mls @ 15 mls/hr IV .[id number] PRN PRN Reason: Additional IVPB Infusion Piperacillin Sod/Tazobactam (Sod 3.375 gm/ Sodium Chloride) 50 mls @ 12.5 mls/hr IV Q8 [facility] Last Admin: 01/29/21 05:35 Dose: 12.5 mls/hr Documented by: Insulin Glargine (Insulin Glargine 100 Units/Ml Pen) 10 units SC DAILY [facility] Insulin Human Lispro (Insulin Lispro 100 Unit/Ml Insuln.Pen) 0 unit SC ACHS [facility]; Protocol Last Admin: 01/29/21 06:38 Dose: Not Given Documented by: L-Arginine/L-Glutamine/Calcium HMB (Juan (Unflavored) Packet) [facility] Last Admin: 01/28/21 17:05 Dose: 1 packet Documented by: Lactulose (Lactulose 20 Gm/30 Ml Udc) 20 gm PO TID [facility] Last Admin: 01/29/21 05:34 Dose: 20 gm Documented by: Metoprolol Tartrate (Metoprolol Tartrate 50 Mg Tablet) 50 mg PO BID [facility] Last Admin: 01/29/21 04:32 Dose: 50 mg Documented by: Nystatin (Nystatin Powder 15gm Bottle) 1 applic TOPICAL BID [facility]; Protocol Last Admin: 01/28/21 22:05 Dose: 1 applicatio Documented by: Ondansetron HCl (Ondansetron 4 Mg/2 Ml Vial) 4 mg IV Q8H PRN PRN PRN Reason: NAUSEA/VOMITING Oxycodone HCl (Oxycodone 5 Mg Tablet) 5 mg PO Q4H PRN PRN PRN Reason: Pain Score 4-10 Last Admin: 01/27/21 19:54 Dose: 5 mg Documented by: Paroxetine HCl (Paroxetine 20 Mg Tablet) 40 mg PO DAILY [facility] Last Admin: 01/28/21 08:15 Dose: 40 mg Documented by: Senna/Docusate Sodium (Senna/Docusate Sodium 1 Tablet) 2 tablet PO BID PRN PRN PRN Reason: Constipation Sodium Chloride (0.9% Saline Lock 10 Ml Syringe) 10 - 40 ml IV UD PRN PRN Reason: SALINE FLUSH Last Admin: 01/25/21 21:06 Dose: 10 ml Documented by: Sodium Hypochlorite (Dakin's Eleni Half Strength (=0.25%)) 1 applic TOPICAL DAILY [facility]; Protocol Last Admin: 01/28/21 11:51 Dose: 1 applicatio Documented by: Tamsulosin HCl (Tamsulosin Hcl 0.4 Mg Capsule) 0.4 mg PO DAILY@1730 [facility] Last Admin: 01/28/21 17:05 Dose: 0.4 mg Documented by: Zolpidem Tartrate (Zolpidem Tartrate 5 Mg Tablet) 5 mg PO QHS PRN PRN PRN Reason: INSOMNIA Last Admin: 01/28/21 22:06 Dose: 5 mg Documented by: STROKE Vital Signs/Narrative: Vital Signs Temp Pulse Resp BP Pulse Ox 01/29/21 08:00 100 01/29/21 05:32 97.5 F L 102 H 20 H 119/83 H 96 01/29/21 04:32 126 H Medical Necessity - Tobacco Use Smoking Status: Current every day smoker Tobacco Use: Cigarettes Assessment/Plan All Active Problems (Last Reviewed 01/29/21 @ 09:[address] Sandoval Morgan MD) Bacteremia (Acute) Cellulitis of left lower limb (Acute) Gangrene of toe of left foot (Acute) Hyperbilirubinemia (Acute) Liver cirrhosis (Acute) Acute kidney injury superimposed on CKD (Acute) Left leg cellulitis (Acute) Infected diabetic left leg ulcers (Acute) Patient is a 65-year-old gentleman with multiple comorbidities admitted with left foot wound redness and warmth, and assessment of acute on chronic recurrent left lower extremity cellulitis and infected diabetic foot ulcers left toe necrosis made antibiotics initiated per protocol patient admitted to regular nursing floor for further management 1. Left diabetic foot infection ?Patient assessment on admission consistent with Acute on chronic recurrent left lower extremity cellulitis, Infected diabetic foot ulcers, Left toe necrosis. Patient was started on broad-spectrum antibiotic therapy with vancomycin and Zosyn with consultation placed to podiatry as well as infectious disease. Patient to undergo further evaluation of the left foot with MRI without contrast as well as serial studies with Dopplers -02/06/2021; Seen and evaluated by Dr. Morgan with vascular surgery no vascular intervention planned at this time 2. Staph aureus bacteremia ?Patient is on vancomycin, seen by ID echo ordered D shaped septum in diastole. Moderately severe (3+) eccentric mitral valve insufficiency. Pulmonary artery systolic pressure is 55 mmHg. The estimated ejection fraction is 50 %. The left atrium is severely enlarged. The right atrium is severely enlarged. No evidence of vegetation 3. Chronic kidney disease stage III ?Due to diabetic nephropathy. Patient presented with worsening of kidney function with creatinine of 2.2 baseline creatinine 1.3. Consult placed to nephrology 4. Diabetes mellitus type II -patient's oral hypoglycemics held. Placed on long acting insulin, Accu-Cheks a.c. and at bedtime and covered with sliding scale insulin 5. Paroxysmal A. fib ?Rate controlled on systemic anticoagulation with Coumadin INR 3.2 as of 01/27/2021 -01/29/2021; INR 1.9 as of today 6. Chronic bilateral lower extremity venous stasis -Also placed to wound care nurse 7. Chronic systolic congestive heart failure ?Checks x-ray obtained on admission was unremarkable. Patient is on Bumex and Aldactone at home held in view of worsening kidney function 8. Chronic hypoxic respiratory failure ?Secondary to COPD patient is on baseline oxygen 3 L at home did continue with aerosol treatments as needed 9. Peripheral vascular disease ?Consult placed to vascular surgery patient undergoing arterial Doppler studies 10. BPH ?Patient is on Flomax 11. Possible polycystic kidney disease ?Nephrology on consult 12. Chronic liver disease ?Do suspect nonalcoholic fatty liver disease. CT obtained demonstrated mild liver cirrhosis with mild splenomegaly and portal hypertension 13. Thrombocytopenia ?Secondary to chronic liver disease 14. DVT prophylaxis ?Patient on Coumadin Inpatient E&M: [id number] [facility] Hosp L2
[2021-01-29 08:09] LABS: HEPATITIS B SURFACE AG Negative (Negative); Hepatitis A IgM Antibody Negative (Negative); Hepatitis B Core AB IgM Negative (Negative)
[2021-01-29] MEDS: Bumetanide 2 MG Tablet 1 MG PO (08:40)
[2021-01-29] MEDS: Gabapentin 100 MG Capsule 200 MG PO (08:40)
[2021-01-29] MEDS: Juven (unflavored) Packet 1 PACKET PO ×2 (08:41→16:24)
[2021-01-29] MEDS: Ferrous Sulfate 325 MG Tablet PO ×2 (08:41→16:24)
[2021-01-29] MEDS: Nystatin Powder 15gm Bottle 1 APPLIC TOPICAL ×2 (08:42→21:20)
[2021-01-29] MEDS: Aspirin E.C. 81 MG Tablet PO (08:42)
[2021-01-29] MEDS: Paroxetine 20 MG Tablet 40 MG PO (08:42)
[2021-01-29] MEDS: Famotidine 20 MG Tablet PO (08:42)
[2021-01-29] MEDS: Menthol/Lanolin/Calamine/Znox 113 GM Tube 1 APPLIC TOPICAL ×2 (08:43→21:19)
--- NOTE | 2021-01-29 09:19 | PCM.CONS.GEN ---
Problem List (1) PAD (peripheral artery disease) Status: Chronic Reason for Consult Date of Consultation: 01/29/21 Reason for Consultation: PAD History of Present Illness: The patient is a 65 year old M with longstanding diabetes. Is known to me previously for same for PAD. He did have some toe amputations in the past and always been able to healed. Has developed an multiple wounds throughout with some sores in the upper extremities and lower extremities. Patient fairly noncompliant. Gangrene of the left fifth toe with an infection and bacteremia. Reviewed his studies that show probable adequate flow down the left leg but was very difficult exam secondary to the patient compliance. He is continually moving his legs. His ABIs did show appear to be biphasic flow with an DOROTHY 0.88. [] Past Medical History Past Medical History (Chronic Problems): Chronic Problems (Last Reviewed 01/29/21 @ 09:[address] Sandoval Morgan MD) Open wound of left hand (Chronic) History of alcohol abuse (Chronic) Smoking addiction (Chronic) PAD (peripheral artery disease) (Chronic) 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) 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) Chronic systolic (congestive) heart failure (Chronic) Chronic kidney disease (Chronic) Dilated cardiomyopathy (Chronic) Nonrheumatic mitral (valve) insufficiency (Chronic) Paroxysmal atrial fibrillation (Chronic) CVA (cerebral vascular accident) (Chronic) Hyperlipidemia (Chronic) Essential (primary) hypertension (Chronic) Secondary pulmonary arterial hypertension (Chronic) Skin ulcer of right knee with fat layer exposed (Chronic) Skin ulcer of left knee with fat layer exposed (Chronic) 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 Anticipate Stage III or IV if excision done. Right ischial pressure sore, stage 2 (Chronic) at least a Stage II. Anticipate Stage III or IV if excision done. Pressure ulcer of sacral region, stage 2 (Chronic) at least a Stage II. Anticipate Stage III or IV if excision done. Vasculitis (Chronic) PVD (peripheral vascular disease) (Chronic) Anemia (Chronic) Cardiomyopathy (Chronic) 47 % EF in 2012 CVA, old, hemiparesis (Chronic) left side weakness....stroke in 2013 BPH (benign prostatic hyperplasia) (Chronic) Urinary incontinence (Chronic) Ulcer of right lower extremity with fat layer exposed (Chronic) 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) Osteomyelitis (Chronic) Malnutrition (Chronic) DM2 (diabetes mellitus, type 2) (Chronic) Depression (Chronic) Chronic low back pain (Chronic) Medical History: Medical History (Last Reviewed 01/29/21 @ 09:[address] Sandoval Morgan MD) Chronic systolic (congestive) heart failure (Chronic) I50.22 Chronic kidney disease (Chronic) N18.9 Dilated cardiomyopathy (Chronic) I42.0 Nonrheumatic mitral (valve) insufficiency (Chronic) I34.0 Paroxysmal atrial fibrillation (Chronic) I48.0 CVA (cerebral vascular accident) (Chronic) I63.9 Hyperlipidemia (Chronic) E78.5 Essential (primary) hypertension (Chronic) I10 Secondary pulmonary arterial hypertension (Chronic) I27.21 Anemia (Chronic) D64.9 Cardiomyopathy (Chronic) I42.9 47 % EF in 2012 CVA, old, hemiparesis (Chronic) I69.359 left side weakness....stroke in 2012 DM2 (diabetes mellitus, type 2) (Chronic) E11.9 Osteomyelitis M86.9 Pulmonary HTN (Inactive) I27.20 PA systolic 51 in 2012 Allergies No Known Allergies Allergy (Verified 01/25/21 12:06) Home Medications: Ambulatory Orders Medication Instructions Recorded Aspirin [Adult Aspirin] 81 mg PO DAILY 06/07/18 Cholecalciferol (VIT D3) [Vitamin 1,000 unit PO DAILY 06/07/18 D3] Acetaminophen [Tylenol Tablet] 650 mg PO Q6H PRN PRN tablet 06/14/18 Tamsulosin HCl [Flomax] 0.4 mg PO DAILY@1730 capsule 06/14/18 Zinc Sulfate (50mg elemental) 220 mg PO DAILY capsule 06/14/18 [Zinc Sulfate] Famotidine 20 mg PO DAILY 08/05/18 Insulin Lispro [Humalog] See Protocol SQ 4X/DAY 08/05/18 Multivitamins,Ther W-Minerals 1 tablet PO DAILY 08/05/18 [Multivitamin With Minerals ([facility])] Paroxetine HCl [Paxil] 40 mg PO DAILY 08/05/18 Warfarin [Coumadin] 5 mg PO [id number] 08/05/18 glipiZIDE [Glucotrol] 10 mg PO BID 08/05/18 Atenolol [Tenormin (beta dilia)] 50 mg PO DAILY tablet 08/10/18 Ferrous Sulfate 325 mg PO BIDCM tablet 08/10/18 Spironolactone 25 mg PO DAILY 06/29/19 Warfarin [Coumadin ([facility])] 2.5 mg PO TH 06/29/19 Gabapentin [Neurontin] 200 mg PO DAILY 08/09/19 Ascorbic Acid [Vitamin C] 500 mg PO DAILY 10/27/19 Insulin Glargine,Hum.rec.anlog 18 unit SQ DAILY 01/17/20 [Lantus] Bumetanide [Bumex] 1 mg PO DAILY 01/25/21 Levomefolate/B6/B12/Algal Oil 1 ea PO BID 01/25/21 [Metanx Capsule] Gabapentin 300 mg PO DAILY 01/26/21 traZODone [Desyrel] 50 mg PO QHS 01/26/21 Surgical History: Surgical History (Last Reviewed 01/29/21 @ 09:[address] Sandoval Morgan MD) History of incision and drainage Z98.890 BLE Surgical History: tonsillectomy Psychiatric History: Depression Lives: Spouse/ Significant Other Smoking Status: Current every day smoker Tobacco Use: Cigarettes Alcohol: None Drugs: None - *Family History Paternal Family History: Family History (Last Reviewed 01/29/21 @ 09:[address] Sandoval Morgan MD) Father Heart disease Mother CVA (cerebral vascular accident) History Items: Heart Disease - His father had atrial fibrillation and an AICD/pacemaker Maternal Family History: Family History (Last Reviewed 01/29/21 @ 09:[address] Sandoval Morgan MD) Father Heart disease Mother CVA (cerebral vascular accident) History Items: Diabetes - His mother had severe diabetes mellitus and had amputations of her lower extremities. Review of Systems Constitutional: Reports: Chills HEENT: Denies: Head Aches, Sinus Congestion, Sinus Drainage Cardiovascular: Denies: Chest Pain, Palpitations Respiratory: Denies: Cough Gastrointestinal: Denies: Abdominal Pain Genitourinary: Denies: Dysuria Musculoskeletal: Reports: Leg Pain Skin: Reports: Dryness Neurological: Denies: Headaches Psychiatric: Denies: Anxiety Patient Problems: Active and Suspected Problems (Last Reviewed 01/29/21 @ 09:[address] Sandoval Morgan MD) Bacteremia (Acute) - Physical Exam Vitals/I&O's: Vital Signs Temp Pulse Resp BP Pulse Ox 97.5 F L 103 H 18 119/83 H 94 01/29/21 05:32 01/29/21 08:41 01/29/21 07:37 01/29/21 05:32 01/29/21 07:37 Oxygen Flow Rate (L/min) 1 Oxygen Delivery Method Nasal Cannula Weight: 266 lb 8 oz Body Mass Index (BMI) 34.2 Finger Stick Blood Glucose 155 Intake and Output for Last 24 Hours 01/27/21 01/28/21 01/29/21 23:59 23:59 23:59 Intake Total 907.25 / 907.25 609.5 / 609.5 402.75 / 402.75 Output Total 0 / 0 Balance 907.25 / 907.25 609.5 / 609.5 402.75 / 402.75 General: Alert, Oriented x3 HEENT: Atraumatic, PERRLA, EOMI Oral: Moist Mucosa Neck: Supple, No JVD Lungs: Clear to auscultation Cardiovascular: Regular rate Abdomen: Soft, Non Tender Extremities: - - Gangrene left fifth toe Lesions noted on the right foot Appears faint popliteal and femoral pulse, difficult exam with patient continually moving Lymphatic: No Cervical, Supraclavicular, or Inguinal Adenopathy Psych/Mental Status: Normal Affect Microbiology Past 72 Hours 01/27/21 10:00 Blood Culture (Wb) - Left Forearm Blood Culture - Preliminary No growth in 48 hours. 01/25/21 16:00 Wound - Left Foot Gram Stain - Final 01/25/21 16:00 Wound - Left Foot Wound Culture - Final Staphylococcus aureus Proteus hauseri 01/25/21 16:00 Wound - Left Foot Anaerobic Culture - Preliminary Checking for anaerobes, further studies to follow. 01/25/21 13:02 Blood Culture (Wb) - Right Forearm Blood Culture - Preliminary Staphylococcus aureus 01/25/21 12:40 Blood Culture (Wb) - Left Forearm Blood Culture - Preliminary No growth in 48 hours. Laboratory Results 01/28/21 09:15: PT 25.5 H, INR 2.4 01/28/21 11:47: POC Glucose 125 H 01/28/21 16:48: POC Glucose 209 H 01/28/21 22:10: POC Glucose 80 01/29/21 03:18: Random Vancomycin 15.7 H 01/29/21 03:18: WBC 8.4, RBC 4.60, Hgb 14.0, Hct 48.2, MCV 104.8 H, MCH 30.4, MCHC 29.0 L, RDW Std Deviation 71.3 H, RDW Coeff of Iban 19.1 H, Plt Count 104 L, MPV 12.6 H 01/29/21 03:18: Sodium 144, Potassium 3.9, Chloride 103, Carbon Dioxide 35.0 H, Anion Gap 6, BUN 70 H, Creatinine 2.08 H, Estim Creat Clear Calc 40.62, Est GFR (MDRD) Af Amer 41 L, Est GFR (MDRD) Non-Af 34 L, BUN/Creatinine Ratio 33.7 H, Glucose 70 L, Calcium 8.9, Magnesium 2.3 01/29/21 03:18: PT 21.5 H, INR 1.9 01/29/21 06:31: POC Glucose 66 L 01/29/21 06:58: POC Glucose 76 Current Medications Albuterol Sulfate (Albuterol 2.5 Mg/3 Ml Vial.Neb.) 2.5 mg INHALATION Q4H PRN PRN PRN Reason: Shortness of breath, wheezing Albuterol/Ipratropium (Ipratropium/Albuterol Sulfate 3 Ml Ampul.Neb) 3 ml INHALATION Q6H.RT [facility] Last Admin: 01/29/21 07:37 Dose: 3 ml Documented by: Aspirin (Aspirin E.C. 81 Mg Tablet) [facility] Last Admin: 01/29/21 08:42 Dose: 81 mg Documented by: Bumetanide (Bumetanide 2 Mg Tablet) 1 mg PO DAILY [facility] Last Admin: 01/29/21 08:40 Dose: 1 mg Documented by: Calamine/Phenol (Menthol/Lanolin/Calamine/Znox 113 Gm Tube) 1 applic TOPICAL BID [facility]; Protocol Last Admin: 01/29/21 08:43 Dose: 1 applicatio Documented by: Famotidine (Famotidine 20 Mg Tablet) 20 mg PO DAILY [facility] Last Admin: 01/29/21 08:42 Dose: 20 mg Documented by: Ferrous Sulfate (Ferrous Sulfate 325 Mg Tablet) 325 mg PO BIDCM [facility] Last Admin: 01/29/21 08:41 Dose: 325 mg Documented by: Gabapentin (Gabapentin 100 Mg Capsule) 200 mg PO DAILY [facility] Last Admin: 01/29/21 08:40 Dose: 200 mg Documented by: Sodium Chloride () 250 mls @ 15 mls/hr IV .[id number] PRN PRN Reason: Saline Flush Last Infusion: 01/29/21 05:35 Dose: 0 mls/hr Documented by: Sodium Chloride () 250 mls @ 15 mls/hr IV .[id number] PRN PRN Reason: Additional IVPB Infusion Piperacillin Sod/Tazobactam (Sod 3.375 gm/ Sodium Chloride) 50 mls @ 12.5 mls/hr IV Q8 [facility] Last Admin: 01/29/21 05:35 Dose: 12.5 mls/hr Documented by: Insulin Glargine (Insulin Glargine 100 Units/Ml Pen) 10 units SC DAILY [facility] Insulin Human Lispro (Insulin Lispro 100 Unit/Ml Insuln.Pen) 0 unit SC ACHS [facility]; Protocol Last Admin: 01/29/21 06:38 Dose: Not Given Documented by: L-Arginine/L-Glutamine/Calcium HMB (Juan (Unflavored) Packet) [facility] Last Admin: 01/29/21 08:41 Dose: 1 packet Documented by: Lactulose (Lactulose 20 Gm/30 Ml Udc) 20 gm PO TID [facility] Last Admin: 01/29/21 05:34 Dose: 20 gm Documented by: Metoprolol Tartrate (Metoprolol Tartrate 50 Mg Tablet) 50 mg PO BID [facility] Last Admin: 01/29/21 08:41 Dose: 50 mg Documented by: Nystatin (Nystatin Powder 15gm Bottle) 1 applic TOPICAL BID [facility]; Protocol Last Admin: 01/29/21 08:42 Dose: 1 applicatio Documented by: Ondansetron HCl (Ondansetron 4 Mg/2 Ml Vial) 4 mg IV Q8H PRN PRN PRN Reason: NAUSEA/VOMITING Oxycodone HCl (Oxycodone 5 Mg Tablet) 5 mg PO Q4H PRN PRN PRN Reason: Pain Score 4-10 Last Admin: 01/27/21 19:54 Dose: 5 mg Documented by: Paroxetine HCl (Paroxetine 20 Mg Tablet) 40 mg PO DAILY [facility] Last Admin: 01/29/21 08:42 Dose: 40 mg Documented by: Senna/Docusate Sodium (Senna/Docusate Sodium 1 Tablet) 2 tablet PO BID PRN PRN PRN Reason: Constipation Sodium Chloride (0.9% Saline Lock 10 Ml Syringe) 10 - 40 ml IV UD PRN PRN Reason: SALINE FLUSH Last Admin: 01/25/21 21:06 Dose: 10 ml Documented by: Sodium Hypochlorite (Dakin's Eleni Half Strength (=0.25%)) 1 applic TOPICAL DAILY [facility]; Protocol Last Admin: 01/28/21 11:51 Dose: 1 applicatio Documented by: Tamsulosin HCl (Tamsulosin Hcl 0.4 Mg Capsule) 0.4 mg PO DAILY@1730 [facility] Last Admin: 01/28/21 17:05 Dose: 0.4 mg Documented by: Zolpidem Tartrate (Zolpidem Tartrate 5 Mg Tablet) 5 mg PO QHS PRN PRN PRN Reason: INSOMNIA Last Admin: 01/28/21 22:06 Dose: 5 mg Documented by: Assessment/Plan All Active Problems (Last Reviewed 01/29/21 @ 09:[address] Sandoval Morgan MD) Bacteremia (Acute) Cellulitis of left lower limb (Acute) Gangrene of toe of left foot (Acute) Hyperbilirubinemia (Acute) Liver cirrhosis (Acute) Acute kidney injury superimposed on CKD (Acute) Left leg cellulitis (Acute) Infected diabetic left leg ulcers (Acute) 1. PAD. Reviewed his ABIs and duplex. Reviewed the images. Appears probable adequate flow down the left leg. But was a very limited exam. Appears adequate waveform at the ankle with biphasic flow. But poor flow out to the foot and evidence of small vessel disease. We will continue to follow. If has toe amputation and difficulty healing would plan for an angiogram.
[2021-01-29 09:32] LABS: Hep C Antibodies <0.1 s/co ratio (0.0-0.9)
--- NOTE | 2021-01-29 10:53 | PCM.PN.ID ---
Patient Problems: Active and Suspected Problems (Last Reviewed 01/29/21 @ 09:[address] Sandoval Morgan MD) Bacteremia (Acute) Subjective: Feeling ok, no fever, no n/v/d. - Physical Exam Vitals/I&O's: Vital Signs Temp Pulse Resp BP Pulse Ox 97.5 F L 103 H 18 119/83 H 94 01/29/21 05:32 01/29/21 08:41 01/29/21 07:37 01/29/21 05:32 01/29/21 07:37 Oxygen Flow Rate (L/min) 1 Oxygen Delivery Method Nasal Cannula Weight: 120.882 kg Body Mass Index (BMI) 34.2 Finger Stick Blood Glucose 155 Intake and Output for Last 24 Hours 01/27/21 01/28/21 01/29/21 23:59 23:59 23:59 Intake Total 907.25 / 907.25 609.5 / 609.5 402.75 / 402.75 Output Total 0 / 0 Balance 907.25 / 907.25 609.5 / 609.5 402.75 / 402.75 General: Alert, Cooperative, No apparent distress Lungs: Clear to auscultation, Normal air movement Cardiovascular: Regular rate, Regular Rhythm Abdomen: Soft, Non Tender, Non-Distended Skin: Ulcer/ Wound - foot wrapped Microbiology Past 72 Hours 01/27/21 10:00 Blood Culture (Wb) - Left Forearm Blood Culture - Preliminary No growth in 48 hours. 01/25/21 16:00 Wound - Left Foot Gram Stain - Final 01/25/21 16:00 Wound - Left Foot Wound Culture - Final Staphylococcus aureus Proteus hauseri 01/25/21 16:00 Wound - Left Foot Anaerobic Culture - Preliminary Checking for anaerobes, further studies to follow. 01/25/21 13:02 Blood Culture (Wb) - Right Forearm Blood Culture - Preliminary Staphylococcus aureus 01/25/21 12:40 Blood Culture (Wb) - Left Forearm Blood Culture - Preliminary No growth in 48 hours. Laboratory Results 01/28/21 03:00: Hepatitis A IgM Ab Negative, Hep Bs Antigen Negative, Hep B Core IgM Ab Negative, Hepatitis C Ab (EIA) <0.1 01/28/21 11:47: POC Glucose 125 H 01/28/21 16:48: POC Glucose 209 H 01/28/21 22:10: POC Glucose 80 01/29/21 03:18: Random Vancomycin 15.7 H 01/29/21 03:18: WBC 8.4, RBC 4.60, Hgb 14.0, Hct 48.2, MCV 104.8 H, MCH 30.4, MCHC 29.0 L, RDW Std Deviation 71.3 H, RDW Coeff of Iban 19.1 H, Plt Count 104 L, MPV 12.6 H 01/29/21 03:18: Sodium 144, Potassium 3.9, Chloride 103, Carbon Dioxide 35.0 H, Anion Gap 6, BUN 70 H, Creatinine 2.08 H, Estim Creat Clear Calc 40.62, Est GFR (MDRD) Af Amer 41 L, Est GFR (MDRD) Non-Af 34 L, BUN/Creatinine Ratio 33.7 H, Glucose 70 L, Calcium 8.9, Magnesium 2.3 01/29/21 03:18: PT 21.5 H, INR 1.9 01/29/21 06:31: POC Glucose 66 L 01/29/21 06:58: POC Glucose 76 Current Medications Albuterol Sulfate (Albuterol 2.5 Mg/3 Ml Vial.Neb.) 2.5 mg INHALATION Q4H PRN PRN PRN Reason: Shortness of breath, wheezing Albuterol/Ipratropium (Ipratropium/Albuterol Sulfate 3 Ml Ampul.Neb) 3 ml INHALATION Q6H.RT [facility] Last Admin: 01/29/21 07:37 Dose: 3 ml Documented by: Aspirin (Aspirin E.C. 81 Mg Tablet) [facility] Admin: 01/29/21 08:42 Dose: 81 mg Documented by: Bumetanide (Bumetanide 2 Mg Tablet) 1 mg PO DAILY [facility] Last Admin: 01/29/21 08:40 Dose: 1 mg Documented by: Calamine/Phenol (Menthol/Lanolin/Calamine/Znox 113 Gm Tube) 1 applic TOPICAL BID [facility]; Protocol Last Admin: 01/29/21 08:43 Dose: 1 applicatio Documented by: Famotidine (Famotidine 20 Mg Tablet) 20 mg PO DAILY [facility] Last Admin: 01/29/21 08:42 Dose: 20 mg Documented by: Ferrous Sulfate (Ferrous Sulfate 325 Mg Tablet) 325 mg PO BID [facility] Last Admin: 01/29/21 08:41 Dose: 325 mg Documented by: Gabapentin (Gabapentin 100 Mg Capsule) 200 mg PO DAILY [facility] Last Admin: 01/29/21 08:40 Dose: 200 mg Documented by: Sodium Chloride () 250 mls @ 15 mls/hr IV .[id number] PRN PRN Reason: Saline Flush Last Infusion: 01/29/21 05:35 Dose: 0 mls/hr Documented by: Sodium Chloride () 250 mls @ 15 mls/hr IV .[id number] PRN PRN Reason: Additional IVPB Infusion Cefepime HCl 2 gm/ Sodium (Chloride) 100 mls @ 200 mls/hr IV Q12 [facility] Last Admin: 01/29/21 10:24 Dose: 200 mls/hr Documented by: Insulin Glargine (Insulin Glargine 100 Units/Ml Pen) 10 units SC DAILY [facility] Insulin Human Lispro (Insulin Lispro 100 Unit/Ml Insuln.Pen) 0 unit SC ACHS [facility]; Protocol Last Admin: 01/29/21 06:38 Dose: Not Given Documented by: L-Arginine/L-Glutamine/Calcium HMB (Juan (Unflavored) Packet) 1 packet PO BIDCM [facility] Last Admin: 01/29/21 08:41 Dose: 1 packet Documented by: Lactulose (Lactulose 20 Gm/30 Ml Udc) 20 gm PO TID [facility] Last Admin: 01/29/21 05:34 Dose: 20 gm Documented by: Metoprolol Tartrate (Metoprolol Tartrate 50 Mg Tablet) 50 mg PO BID [facility] Last Admin: 01/29/21 08:41 Dose: 50 mg Documented by: Nystatin (Nystatin Powder 15gm Bottle) 1 applic TOPICAL BID [facility]; Protocol Last Admin: 01/29/21 08:42 Dose: 1 applicatio Documented by: Ondansetron HCl (Ondansetron 4 Mg/2 Ml Vial) 4 mg IV Q8H PRN PRN PRN Reason: NAUSEA/VOMITING Oxycodone HCl (Oxycodone 5 Mg Tablet) 5 mg PO Q4H PRN PRN PRN Reason: Pain Score 4-10 Last Admin: 01/27/21 19:54 Dose: 5 mg Documented by: Paroxetine HCl (Paroxetine 20 Mg Tablet) 40 mg PO DAILY [facility] Last Admin: 01/29/21 08:42 Dose: 40 mg Documented by: Senna/Docusate Sodium (Senna/Docusate Sodium 1 Tablet) 2 tablet PO BID PRN PRN PRN Reason: Constipation Sodium Chloride (0.9% Saline Lock 10 Ml Syringe) 10 - 40 ml IV UD PRN PRN Reason: SALINE FLUSH Last Admin: 01/25/21 21:06 Dose: 10 ml Documented by: Sodium Hypochlorite (Dakin's Eleni Half Strength (=0.25%)) 1 applic TOPICAL DAILY [facility]; Protocol Last Admin: 01/28/21 11:51 Dose: 1 applicatio Documented by: Tamsulosin HCl (Tamsulosin Hcl 0.4 Mg Capsule) 0.4 mg PO DAILY@1730 [facility] Last Admin: 01/28/21 17:05 Dose: 0.4 mg Documented by: Zolpidem Tartrate (Zolpidem Tartrate 5 Mg Tablet) 5 mg PO QHS PRN PRN PRN Reason: INSOMNIA Last Admin: 01/28/21 22:06 Dose: 5 mg Documented by: Medical Necessity - Tobacco Use Smoking Status: Current every day smoker Tobacco Use: Cigarettes Route of nutrition/ use of supplements: [] Nutritional Intake: [] IV Site: [] Aponte Catheter: [] - Assessment/Plan Antibiotics: [] Assessment/Plan: [] MSSA bacteremia due to L toe osteo - h/o ckd, cirrhosis, foot osteo, CHF, PAD, ? vasculitis. Had neg rheum panel on 12/2020. Follows at wound care, recently seen for wound with exposed tendon in L hand. Podiatry following; L foot cx with mssa. TTE neg for veg. Repeat bcx today. Plan on 6 weeks iv abx at discharge, stop date 03/10/21. Will change zosyn to cefepime for easier outpt dosing, will order picc. Hep panel neg. ID followup in 2 weeks. Will follow
--- NOTE | 2021-01-29 11:01 | PCM.CONS.P ---
Problem List (1) Bacteremia Status: Acute (2) Cellulitis of left lower limb Status: Acute (3) Gangrene of toe of left foot Status: Acute (4) Hyperbilirubinemia Status: Acute (5) Liver cirrhosis Status: Acute (6) Acute kidney injury superimposed on CKD Status: Acute (7) Left leg cellulitis Status: Acute (8) Infected diabetic left leg ulcers Status: Acute (9) Open wound of left hand Status: Chronic (10) History of alcohol abuse Status: Chronic (11) Smoking addiction Status: Chronic (12) PAD (peripheral artery disease) Status: Chronic (13) Chronic ulcer of left foot with fat layer exposed Status: Chronic (14) 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 Status: Chronic (15) Chronic systolic (congestive) heart failure Status: Chronic (16) Chronic kidney disease Status: Chronic (17) Dilated cardiomyopathy Status: Chronic (18) Nonrheumatic mitral (valve) insufficiency Status: Chronic (19) Paroxysmal atrial fibrillation Status: Chronic (20) CVA (cerebral vascular accident) Status: Chronic (21) Hyperlipidemia Status: Chronic (22) Essential (primary) hypertension Status: Chronic (23) Secondary pulmonary arterial hypertension Status: Chronic (24) Skin ulcer of right knee with fat layer exposed Status: Chronic (25) Skin ulcer of left knee with fat layer exposed Status: Chronic (26) NLD (necrobiosis lipoidica diabeticorum) Status: Chronic Comment: bilateral lower extremities (27) Pressure sore of left ischium, stage 2 Status: Chronic Comment: at least a Stage II. Anticipate Stage III or IV if excision done. (28) Right ischial pressure sore, stage 2 Status: Chronic Comment: at least a Stage II. Anticipate Stage III or IV if excision done. (29) Pressure ulcer of sacral region, stage 2 Status: Chronic Comment: at least a Stage II. Anticipate Stage III or IV if excision done. (30) Vasculitis Status: Chronic (31) PVD (peripheral vascular disease) Status: Chronic (32) Anemia Status: Chronic (33) Cardiomyopathy Status: Chronic Comment: 47 % EF in 2013 (34) CVA, old, hemiparesis Status: Chronic Comment: left side weakness....stroke in 2013 (35) BPH (benign prostatic hyperplasia) Status: Chronic (36) Urinary incontinence Status: Chronic (37) Ulcer of right lower extremity with fat layer exposed Status: Chronic (38) 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 (39) Osteomyelitis Status: Chronic (40) Malnutrition Status: Chronic (41) DM2 (diabetes mellitus, type 2) Status: Chronic (42) Depression Status: Chronic (43) Chronic low back pain Status: Chronic History of Present Illness Date of Consult: 01/29/21 Reason for Consult: Palliative consult related to recurrent infections and exac of chronic cond Requesting physician: [] Primary care physician: Dr. Hong Sparks MD - History of Present Illness The patient is a 65 year old M referred to [facility] due to positive screens for recurrent ulcer infections, CVA with debility and chronic oxygen dependence. See extensive list of chronic conditions listed below. He was admitted to the ER on 01/25/2021 due to the complaints of redness and swelling to his left leg for the last 3 days. Patient does follow Dr Gruber at the wound center. He had denied any recent illness or current symptoms. Patient was admitted and started on IV Unasyn and vancomycin for cellulitis [] x-ray of the left foot showed no destructive bony process. Diffuse soft tissue swelling with ulcer/defect of the lower posterior leg. Vascular has been brought in and vascular intervention may be required. Urgent surgical intervention not recommended at this time. Dakin treatments are in place with IV antibiotics. Some jaundice noted with elevated bilirubin and liver enzymes prompted an CT of the abdomen and pelvis which showed mild cirrhosis with mild splenomegaly likely secondary to portal hypertension, Autosomal dominant polycystic kidney disease with mild volume overload with small bilateral pleural effusions and a small amount of ascites and a 3.2 cm abdominal aortic aneurysm. Patient was seen today, confused but pleasant yelling out for peaches. Noted figity and sprawled out all over the bed. Able to answer yes and no but unable to provide significant medical history due to mental status. No acute distress noted, but appears uncomfortable and dressings unraveling on lower extremities. Staff to medicate with Oxycodone 5mg. Last dose given January 27. present during the end of visit and tearful about decline in mental status since admission. States they have been for 48 years and she has taken care of him with the assistance of nursing staff but not STNAs for 3 years. I have just always have given him what he wanted. I never could say no to him. Patient Problems: Chronic Problems (Last Reviewed 01/29/21 @ 09:[address] Sandoval Morgan MD) Open wound of left hand (Chronic) History of alcohol abuse (Chronic) Smoking addiction (Chronic) PAD (peripheral artery disease) (Chronic) 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) 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) Chronic systolic (congestive) heart failure (Chronic) Chronic kidney disease (Chronic) Dilated cardiomyopathy (Chronic) Nonrheumatic mitral (valve) insufficiency (Chronic) Paroxysmal atrial fibrillation (Chronic) CVA (cerebral vascular accident) (Chronic) Hyperlipidemia (Chronic) Essential (primary) hypertension (Chronic) Secondary pulmonary arterial hypertension (Chronic) Skin ulcer of right knee with fat layer exposed (Chronic) Skin ulcer of left knee with fat layer exposed (Chronic) 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 Anticipate Stage III or IV if excision done. Right ischial pressure sore, stage 2 (Chronic) at least a Stage II. Anticipate Stage III or IV if excision done. Pressure ulcer of sacral region, stage 2 (Chronic) at least a Stage II. Anticipate Stage III or IV if excision done. Vasculitis (Chronic) PVD (peripheral vascular disease) (Chronic) Anemia (Chronic) Cardiomyopathy (Chronic) 47 % EF in 2012 CVA, old, hemiparesis (Chronic) left side weakness....stroke in 2012 BPH (benign prostatic hyperplasia) (Chronic) Urinary incontinence (Chronic) Ulcer of right lower extremity with fat layer exposed (Chronic) 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) Osteomyelitis (Chronic) Malnutrition (Chronic) DM2 (diabetes mellitus, type 2) (Chronic) Depression (Chronic) Chronic low back pain (Chronic) Surgical History: tonsillectomy Psychiatric History: Depression Home Medications: Ambulatory Orders Medication Instructions Recorded Aspirin [Adult Aspirin] 81 mg PO DAILY 06/07/18 Cholecalciferol (VIT D3) [Vitamin 1,000 unit PO DAILY 06/07/18 D3] Acetaminophen [Tylenol Tablet] 650 mg PO Q6H PRN PRN tablet 06/14/18 Tamsulosin HCl [Flomax] 0.4 mg PO DAILY@1730 capsule 06/14/18 Zinc Sulfate (50mg elemental) 220 mg PO DAILY capsule 07/24/18 [Zinc Sulfate] Famotidine 20 mg PO DAILY 08/05/18 Insulin Lispro [Humalog] See Protocol SQ 4X/DAY 08/05/18 Multivitamins,Ther W-Minerals 1 tablet PO DAILY 08/05/18 [Multivitamin With Minerals ([facility]KC)] Paroxetine HCl [Paxil] 40 mg PO DAILY 08/05/18 Warfarin [Coumadin] 5 mg PO [id number] 08/05/18 glipiZIDE [Glucotrol] 10 mg PO BID 08/05/18 Atenolol [Tenormin (beta dilia)] 50 mg PO DAILY tablet 08/10/18 Ferrous Sulfate 325 mg PO BIDCM tablet 08/10/18 Spironolactone 25 mg PO DAILY 06/29/19 Warfarin [Coumadin ([facility]KC)] 2.5 mg PO TH 06/29/19 Gabapentin [Neurontin] 200 mg PO DAILY 08/09/19 Ascorbic Acid [Vitamin C] 500 mg PO DAILY 10/27/19 Insulin Glargine,Hum.rec.anlog 18 unit SQ DAILY 01/17/20 [Lantus] Bumetanide [Bumex] 1 mg PO DAILY 01/25/21 Levomefolate/B6/B12/Algal Oil 1 ea PO BID 01/25/21 [Metanx Capsule] Gabapentin 300 mg PO DAILY 01/26/21 traZODone [Desyrel] 50 mg PO QHS 01/26/21 Cefepime HCl [Maxipime] 2 gm IV Q12H 39 Days #78 vial 01/29/21 Allergies No Known Allergies Allergy (Verified 01/25/21 12:06) Paternal Family History: Family History (Last Reviewed 01/29/21 @ 09:[address] Sandoval Morgan MD) Father Heart disease Mother CVA (cerebral vascular accident) History Items: Heart Disease - His father had atrial fibrillation and an AICD/pacemaker Maternal Family History: Family History (Last Reviewed 01/29/21 @ 09:[address] Sandoval Morgan MD) Father Heart disease Mother CVA (cerebral vascular accident) History Items: Diabetes - His mother had severe diabetes mellitus and had amputations of her lower extremities. - Social History Lives: Spouse/ Significant Other Smoking Status: Current every day smoker Tobacco Use: Cigarettes Alcohol: None Drugs: None Review of Systems Unable to obtain accurate/complete ROS d/t: due to mental status Physical Exam General: Alert, Cooperative, Confused, Disoriented HEENT: Atraumatic, Normocephalic Neck: Supple, Trachea Midline Lungs: Diminished - lung bases, Wheezes Cardiovascular: Regular rate, Regular Rhythm, Normal S1, Normal S2 Abdomen: Bowel Sounds Present, Non Tender, Obese Extremities: Cool, Diminished Peripheral Pulses, Tenderness Skin: Ulcer/ Wound - left hand, bilateral lower extremities, multiple scabs, - - malar type facial rash Neurological: Cranial nerves II-XII grossly intact Psych/Mental Status: Restless, - - Alert to person and place Objective: Vital Signs Temp Pulse Resp BP Pulse Ox 97.5 F L 103 H 18 119/83 H 94 01/29/21 05:32 01/29/21 08:41 01/29/21 07:37 01/29/21 05:32 01/29/21 07:37 Oxygen Flow Rate (L/min) 1 Oxygen Delivery Method Nasal Cannula Weight: 120.882 kg Body Mass Index (BMI) 34.2 Finger Stick Blood Glucose 155 Intake and Output for Last 24 Hours 01/27/21 01/28/21 01/29/21 23:59 23:59 23:59 Intake Total 907.25 / 907.25 609.5 / 609.5 402.75 / 402.75 Output Total 0 / 0 Balance 907.25 / 907.25 609.5 / 609.5 402.75 / 402.75 Microbiology Past 72 Hours 01/27/21 10:00 Blood Culture - Preliminary Blood Culture (Wb) - Left Forearm No growth in 48 hours. 01/25/21 16:00 Gram Stain - Final Wound - Left Foot Wound Culture - Final Staphylococcus aureus Proteus hauseri Anaerobic Culture - Preliminary Checking for anaerobes, further studies to follow. 01/25/21 13:02 Blood Culture - Preliminary Blood Culture (Wb) - Right Forearm Staphylococcus aureus 01/25/21 12:40 Blood Culture - Preliminary Blood Culture (Wb) - Left Forearm No growth in 48 hours. Laboratory Tests Past 24 Hrs 01/28/21 01/29/21 01/29/21 03:00 03:18 03:18 WBC 8.4 RBC 4.60 Hgb 14.0 Hct 48.2 MCV 104.8 H MCH 30.4 MCHC 29.0 L RDW Std Deviation 71.3 H RDW Coeff of Iban 19.1 H Plt Count 104 L MPV 12.6 H PT INR Sodium Potassium Chloride Carbon Dioxide Anion Gap BUN Creatinine Estim Creat Clear Calc Est GFR (MDRD) Af Amer Est GFR (MDRD) Non-Af BUN/Creatinine Ratio Glucose Calcium Magnesium Random Vancomycin 15.7 H Hepatitis A IgM Ab Negative Hep Bs Antigen Negative Hep B Core IgM Ab Negative Hepatitis C Ab (EIA) <0.1 01/29/21 01/29/21 03:18 03:18 WBC RBC Hgb Hct MCV MCH MCHC RDW Std Deviation RDW Coeff of Iban Plt Count MPV PT 21.5 H INR 1.9 Sodium 144 Potassium 3.9 Chloride 103 Carbon Dioxide 35.0 H Anion Gap 6 BUN 70 H Creatinine 2.08 H Estim Creat Clear Calc 40.62 Est GFR (MDRD) Af Amer 41 L Est GFR (MDRD) Non-Af 34 L BUN/Creatinine Ratio 33.7 H Glucose 70 L Calcium 8.9 Magnesium 2.3 Random Vancomycin Hepatitis A IgM Ab Hep Bs Antigen Hep B Core IgM Ab Hepatitis C Ab (EIA) Assessment/Plan All Active Problems (Last Reviewed 01/29/21 @ 09:[address] Sandoval Morgan MD) Bacteremia (Acute) Cellulitis of left lower limb (Acute) Gangrene of toe of left foot (Acute) Hyperbilirubinemia (Acute) Liver cirrhosis (Acute) Acute kidney injury superimposed on CKD (Acute) Left leg cellulitis (Acute) Infected diabetic left leg ulcers (Acute) Hong Arguello is a 65 y/o male referred to [facility] for symptom control and assistance with multiple chronic conditions. Spoke in person with , Leticia. Tearful about patient's decline and unsure about prognosis or what to do. Realizes that she is limited to continue to care for him at home by herself. Discussed Palliative and Hospice options. Palliative card given with contact information to call when discharged. Wants to talk to the specialist about prognosis before making a decision, but understanding of declining condition. Reassured that Palliative would support if they chose further treatment and Hospice would provide support if they chose comfort care measures. Encouraged Leticia to call [facility] with any questions she may have. 1) lethargy/confusion: Bacteremia, with worsening kidney function, chronic ulcers and with vascular compromise seems to be contributing to decline of mental status. Patient's current status is suggestive of hospice appropriateness. seems to understand and asking for a timeline and wants to get official prognosis from specialists on the case. Palliative to provide support of pain and symptom management if chooses to continue with treatment. Contact [facility] if she declines treatment and choose comfort care. 2) Debility: is unable to care for patient at home in current state of decline and she understands that. Tearful about having to place in a facility. Palliative will follow at chosen LTC facility if treatment continues. Notify [facility] for admission to services if chooses comfort care treatment. Contact Palliative office with any further questions. Thank you for the opportunity to serve your patients! The [facility] Team [phone] TIME IN: 10:30 AM TIME OUT: 11:40AM
[2021-01-29] MEDS: oxyCODONE 5 MG Tablet PO (11:14)
[2021-01-29] MEDS: Insulin Lispro 100 UNIT/ML INSULN.PEN SC ×3 (11:29→21:40)
[2021-01-29 11:51] LABS: Bedside Glucose 211 mg/dL (70-110)
--- NOTE | 2021-01-29 13:54 | PN.RENAL_ITS ---
Patient Problems: Active and Suspected Problems (Last Reviewed 01/29/21 @ 09:[address] Sandoval Morgan MD) Bacteremia (Acute) Cellulitis of left lower limb (Acute) Gangrene of toe of left foot (Acute) Hyperbilirubinemia (Acute) Liver cirrhosis (Acute) Acute kidney injury superimposed on CKD (Acute) Left leg cellulitis (Acute) Infected diabetic left leg ulcers (Acute) Subjective: minimal response, lethargic. Urine output not documented. Palliative on consult - Physical Exam Vitals/I&O's: Vital Signs Temp Pulse Resp BP Pulse Ox 99.1 F 105 H 18 116/79 97 01/29/21 08:40 01/29/21 13:40 01/29/21 08:40 01/29/21 08:40 01/29/21 08:40 Oxygen Flow Rate (L/min) 2 Oxygen Delivery Method Nasal Cannula Weight: 120.882 kg Body Mass Index (BMI) 34.2 Finger Stick Blood Glucose 155 Intake and Output for Last 24 Hours 01/27/21 01/28/21 01/29/21 23:59 23:59 23:59 Intake Total 907.25 / 907.25 609.5 / 609.5 577.25 / 577.25 Output Total 0 / 0 Balance 907.25 / 907.25 609.5 / 609.5 577.25 / 577.25 General: Lethargic, - - not following commands Oral: Dry Mucosa - mouth breathing Lungs: Diminished Cardiovascular: Irregular Rate - afib Abdomen: Bowel Sounds Present, Soft, Non Tender, Non-Distended, Obese Extremities: No edema Skin: - - multiple skin ulcers, toe ulcers Musculoskeletal: Muscle Wasting, - - gen weakness Neurological: - - lethargic Psych/Mental Status: - - encephalopathic Microbiology Past 72 Hours 01/27/21 10:00 Blood Culture (Wb) - Left Forearm Blood Culture - Preliminary No growth in 48 hours. 01/25/21 16:00 Wound - Left Foot Gram Stain - Final 01/25/21 16:00 Wound - Left Foot Wound Culture - Final Staphylococcus aureus Proteus hauseri 01/25/21 16:00 Wound - Left Foot Anaerobic Culture - Preliminary Checking for anaerobes, further studies to follow. 01/25/21 13:02 Blood Culture (Wb) - Right Forearm Blood Culture - Preliminary Staphylococcus aureus 01/25/21 12:40 Blood Culture (Wb) - Left Forearm Blood Culture - Preliminary No growth in 48 hours. Laboratory Results 01/28/21 03:00: Hepatitis A IgM Ab Negative, Hep Bs Antigen Negative, Hep B Core IgM Ab Negative, Hepatitis C Ab (EIA) <0.1 01/28/21 16:48: POC Glucose 209 H 01/28/21 22:10: POC Glucose 80 01/29/21 03:18: Random Vancomycin 15.7 H 01/29/21 03:18: WBC 8.4, RBC 4.60, Hgb 14.0, Hct 48.2, MCV 104.8 H, MCH 30.4, MCHC 29.0 L, RDW Std Deviation 71.3 H, RDW Coeff of Iban 19.1 H, Plt Count 104 L, MPV 12.6 H 01/29/21 03:18: Sodium 144, Potassium 3.9, Chloride 103, Carbon Dioxide 35.0 H, Anion Gap 6, BUN 70 H, Creatinine 2.08 H, Estim Creat Clear Calc 40.62, Est GFR (MDRD) Af Amer 41 L, Est GFR (MDRD) Non-Af 34 L, BUN/Creatinine Ratio 33.7 H, Glucose 70 L, Calcium 8.9, Magnesium 2.3 01/29/21 03:18: PT 21.5 H, INR 1.9 01/29/21 06:31: POC Glucose 66 L 01/29/21 06:58: POC Glucose 76 01/29/21 11:27: POC Glucose 211 H Current Medications Albuterol Sulfate (Albuterol 2.5 Mg/3 Ml Vial.Neb.) 2.5 mg INHALATION Q4H PRN PRN PRN Reason: Shortness of breath, wheezing Albuterol/Ipratropium (Ipratropium/Albuterol Sulfate 3 Ml Ampul.Neb) 3 ml INHALATION Q6H.RT COUNT INCLUDES THE [facility] Last Admin: 01/29/21 13:29 Dose: 3 ml Documented by: Aspirin (Aspirin E.C. 81 Mg Tablet) [facility] Last Admin: 01/29/21 08:42 Dose: 81 mg Documented by: Bumetanide (Bumetanide 2 Mg Tablet) 1 mg PO DAILY COUNT INCLUDES THE [facility] Last Admin: 01/29/21 08:40 Dose: 1 mg Documented by: Calamine/Phenol (Menthol/Lanolin/Calamine/Znox 113 Gm Tube) 1 applic TOPICAL BID COUNT INCLUDES THE [facility]; Protocol Last Admin: 01/29/21 08:43 Dose: 1 applicatio Documented by: Famotidine (Famotidine 20 Mg Tablet) 20 mg PO DAILY COUNT INCLUDES THE [facility] Last Admin: 01/29/21 08:42 Dose: 20 mg Documented by: Ferrous Sulfate (Ferrous Sulfate 325 Mg Tablet) 325 mg PO BIDCM COUNT INCLUDES THE [facility] Last Admin: 01/29/21 08:41 Dose: 325 mg Documented by: Gabapentin (Gabapentin 100 Mg Capsule) 200 mg PO DAILY COUNT INCLUDES THE [facility] Last Admin: 01/29/21 08:40 Dose: 200 mg Documented by: Sodium Chloride () 250 mls @ 15 mls/hr IV .[id number] PRN PRN Reason: Saline Flush Last Infusion: 01/29/21 12:32 Dose: 0 mls/hr Documented by: Sodium Chloride () 250 mls @ 15 mls/hr IV .[id number] PRN PRN Reason: Additional IVPB Infusion Cefepime HCl 2 gm/ Sodium (Chloride) 100 mls @ 200 mls/hr IV Q12 COUNT INCLUDES THE [facility] Last Infusion: 01/29/21 10:54 Dose: Infused Documented by: Insulin Glargine (Insulin Glargine 100 Units/Ml Pen) 10 units SC DAILY COUNT INCLUDES THE [facility] Insulin Human Lispro (Insulin Lispro 100 Unit/Ml Insuln.Pen) 0 unit SC ACHS COUNT INCLUDES THE [facility]; Protocol Last Admin: 01/29/21 11:29 Dose: 2 units Documented by: L-Arginine/L-Glutamine/Calcium HMB (Juan (Unflavored) Packet) 1 packet PO BIDCM COUNT INCLUDES THE [facility] Last Admin: 01/29/21 08:41 Dose: 1 packet Documented by: Lactulose (Lactulose 20 Gm/30 Ml Udc) 20 gm PO TID COUNT INCLUDES THE [facility] Last Admin: 01/29/21 05:34 Dose: 20 gm Documented by: Metoprolol Tartrate (Metoprolol Tartrate 50 Mg Tablet) 50 mg PO BID COUNT INCLUDES THE [facility] Last Admin: 01/29/21 08:41 Dose: 50 mg Documented by: Nystatin (Nystatin Powder 15gm Bottle) 1 applic TOPICAL BID COUNT INCLUDES THE [facility]; Protocol Last Admin: 01/29/21 08:42 Dose: 1 applicatio Documented by: Ondansetron HCl (Ondansetron 4 Mg/2 Ml Vial) 4 mg IV Q8H PRN PRN PRN Reason: NAUSEA/VOMITING Oxycodone HCl (Oxycodone 5 Mg Tablet) 5 mg PO Q4H PRN PRN PRN Reason: Pain Score 4-10 Last Admin: 01/29/21 11:14 Dose: 5 mg Documented by: Paroxetine HCl (Paroxetine 20 Mg Tablet) 40 mg PO DAILY COUNT INCLUDES [facility] Last Admin: 01/29/21 08:42 Dose: 40 mg Documented by: Senna/Docusate Sodium (Senna/Docusate Sodium 1 Tablet) 2 tablet PO BID PRN PRN PRN Reason: Constipation Sodium Chloride (0.9% Saline Lock 10 Ml Syringe) 10 - 40 ml IV UD PRN PRN Reason: SALINE FLUSH Last Admin: 01/25/21 21:06 Dose: 10 ml Documented by: Sodium Hypochlorite (Dakin's Eleni Half Strength (=0.25%)) 1 applic TOPICAL DAILY COUNT INCLUDES THE [facility]; Protocol Last Admin: 01/28/21 11:51 Dose: 1 applicatio Documented by: Tamsulosin HCl (Tamsulosin Hcl 0.4 Mg Capsule) 0.4 mg PO DAILY@1730 COUNT INCLUDES THE [facility] Last Admin: 01/28/21 17:05 Dose: 0.4 mg Documented by: Zolpidem Tartrate (Zolpidem Tartrate 5 Mg Tablet) 5 mg PO QHS PRN PRN PRN Reason: INSOMNIA Last Admin: 01/28/21 22:06 Dose: 5 mg Documented by: Medical Necessity - Tobacco Use Smoking Status: Current every day smoker Tobacco Use: Cigarettes Assessment/Plan All Active Problems (Last Reviewed 01/29/21 @ 09:[address] Sandoval Morgan MD) Bacteremia (Acute) Cellulitis of left lower limb (Acute) Gangrene of toe of left foot (Acute) Hyperbilirubinemia (Acute) Liver cirrhosis (Acute) Acute kidney injury superimposed on CKD (Acute) Left leg cellulitis (Acute) Infected diabetic left leg ulcers (Acute) 1. CKD stage 3 underlying diabetic, polycystic kidney disease. Creatinine unchanged at 2 today but no urine output documented. Poor dialysis candidate due to comorbid conditions, poor quality of life, chronic debilitation, chronic diabetic foot infection with small vessel disease. 2. Bacteremia with diabetic foot infection, PAD, small vessel disease with cyanotic digits, nose, skin ulcers, toe ulcers s/p toe amputation. Iv antibx managed by ID 3. DM type 2 primary mgmt 4. moderate pulmonary hypertension, RV dysfunction. edema BLE stable on bumex daily. Consider stopping bumex. Pt appears dry 5. HTN stable 6 .Chronic afib on anticoagulation
[2021-01-29] MEDS: DAKIN'S SOL HALF STRENGTH (=0.25%) 1 APPLIC TOPICAL (14:24)
--- NOTE | 2021-01-29 16:20 | NURSING ---
RNCM Progress Note: Patient confused, not his baseline. Called patient Leticia Arguello cell [phone], answered and states that she is currently driving. States thinks she does not wants to take patient home, would like the case preparer and liner or social work therapist to call her in the morning tomorrow to discuss. Not sure of a preferred SNF. In network list done for Infusion company, HHC, and SNF- placed with patient RNCM chart along with printed packet/IV Abx order. RNCM to f/u tomorrow regarding DC plan. Patient still waiting for final Bcx result and PICC placement. Pedro Melgar RNCM
[2021-01-29] MEDS: Tamsulosin HCl 0.4 MG Capsule PO (16:24)
--- NOTE | 2021-01-29 16:40 | PCM.PROGNOTE ---
Patient Problems: Active and Suspected Problems (Last Reviewed 01/29/21 @ 09:[address] Sandoval Morgan MD) Bacteremia (Acute) Cellulitis of left lower limb (Acute) Gangrene of toe of left foot (Acute) Hyperbilirubinemia (Acute) Liver cirrhosis (Acute) Acute kidney injury superimposed on CKD (Acute) Left leg cellulitis (Acute) Infected diabetic left leg ulcers (Acute) Subjective: Patient is disoriented and lethargic. He sometimes responded to his nail. - Physical Exam Vitals/I&O's: Vital Signs Temp Pulse Resp BP Pulse Ox 98.1 F 102 H 18 143/86 H 97 01/29/21 14:55 01/29/21 14:55 01/29/21 14:55 01/29/21 14:55 01/29/21 14:55 Oxygen Flow Rate (L/min) 2 Oxygen Delivery Method Nasal Cannula Weight: 120.882 kg Body Mass Index (BMI) 34.2 Finger Stick Blood Glucose 155 Intake and Output for Last 24 Hours 01/27/21 01/28/21 01/29/21 23:59 23:59 23:59 Intake Total 907.25 / 907.25 609.5 / 609.5 1057.25 / 1057.25 Output Total 0 / 0 Balance 907.25 / 907.25 609.5 / 609.5 1057.25 / 1057.25 General: Confused, Disoriented, Lethargic Extremities: No Calf Tenderness, Cyanosis, Diminished Peripheral Pulses, Edema - worsening with purplish discolorations noted to digits, - - CFT is greater than 3 seconds Skin: Ulcer/ Wound - mulitiple bilateral lower extremity ulceration noted to foot and leg. These were covered by bandage which is clean dry and intact. Some of the toe ulcerations were visible. They are largely unchanged. The 5th left toe is draining serosanginous fluid Musculoskeletal: Muscle Wasting Neurological: - - neuropathy Psych/Mental Status: Restless Microbiology Past 72 Hours 01/27/21 10:00 Blood Culture (Wb) - Left Forearm Blood Culture - Preliminary No growth in 48 hours. 01/25/21 16:00 Wound - Left Foot Gram Stain - Final 01/25/21 16:00 Wound - Left Foot Wound Culture - Final Staphylococcus aureus Proteus hauseri 01/25/21 16:00 Wound - Left Foot Anaerobic Culture - Preliminary Checking for anaerobes, further studies to follow. 01/25/21 13:02 Blood Culture (Wb) - Right Forearm Blood Culture - Preliminary Staphylococcus aureus 01/25/21 12:40 Blood Culture (Wb) - Left Forearm Blood Culture - Preliminary No growth in 48 hours. Laboratory Results 01/28/21 03:00: Hepatitis A IgM Ab Negative, Hep Bs Antigen Negative, Hep B Core IgM Ab Negative, Hepatitis C Ab (EIA) <0.1 01/28/21 16:48: POC Glucose 209 H 01/28/21 22:10: POC Glucose 80 01/29/21 03:18: Random Vancomycin 15.7 H 01/29/21 03:18: WBC 8.4, RBC 4.60, Hgb 14.0, Hct 48.2, MCV 104.8 H, MCH 30.4, MCHC 29.0 L, RDW Std Deviation 71.3 H, RDW Coeff of Iban 19.1 H, Plt Count 104 L, MPV 12.6 H 01/29/21 03:18: Sodium 144, Potassium 3.9, Chloride 103, Carbon Dioxide 35.0 H, Anion Gap 6, BUN 70 H, Creatinine 2.08 H, Estim Creat Clear Calc 40.62, Est GFR (MDRD) Af Amer 41 L, Est GFR (MDRD) Non-Af 34 L, BUN/Creatinine Ratio 33.7 H, Glucose 70 L, Calcium 8.9, Magnesium 2.3 01/29/21 03:18: PT 21.5 H, INR 1.9 01/29/21 06:31: POC Glucose 66 L 01/29/21 06:58: POC Glucose 76 01/29/21 11:27: POC Glucose 211 H Current Medications Albuterol Sulfate (Albuterol 2.5 Mg/3 Ml Vial.Neb.) 2.5 mg INHALATION Q4H PRN PRN PRN Reason: Shortness of breath, wheezing Albuterol/Ipratropium (Ipratropium/Albuterol Sulfate 3 Ml Ampul.Neb) 3 ml INHALATION Q6H.RT [facility] Last Admin: 01/29/21 13:29 Dose: 3 ml Documented by: Aspirin (Aspirin E.C. 81 Mg Tablet) 81 mg PO DAILYCM [facility] Last Admin: 01/29/21 08:42 Dose: 81 mg Documented by: Bumetanide (Bumetanide 2 Mg Tablet) 1 mg PO DAILY [facility] Last Admin: 01/29/21 08:40 Dose: 1 mg Documented by: Calamine/Phenol (Menthol/Lanolin/Calamine/Znox 113 Gm Tube) 1 applic TOPICAL BID [facility]; Protocol Last Admin: 01/29/21 08:43 Dose: 1 applicatio Documented by: Famotidine (Famotidine 20 Mg Tablet) 20 mg PO DAILY [facility] Last Admin: 01/29/21 08:42 Dose: 20 mg Documented by: Ferrous Sulfate (Ferrous Sulfate 325 Mg Tablet) 325 mg PO BIDCM [facility] Last Admin: 01/29/21 16:24 Dose: 325 mg Documented by: Gabapentin (Gabapentin 100 Mg Capsule) 200 mg PO DAILY [facility] Last Admin: 01/29/21 08:40 Dose: 200 mg Documented by: Sodium Chloride () 250 mls @ 15 mls/hr IV .[id number] PRN PRN Reason: Saline Flush Last Infusion: 01/29/21 12:32 Dose: 0 mls/hr Documented by: Sodium Chloride () 250 mls @ 15 mls/hr IV .[id number] PRN PRN Reason: Additional IVPB Infusion Cefepime HCl 2 gm/ Sodium (Chloride) 100 mls @ 200 mls/hr IV Q12 [facility] Last Infusion: 01/29/21 10:54 Dose: Infused Documented by: Insulin Glargine (Insulin Glargine 100 Units/Ml Pen) 10 units SC DAILY [facility] Insulin Human Lispro (Insulin Lispro 100 Unit/Ml Insuln.Pen) 0 unit SC [facility]; Protocol Last Admin: 01/29/21 16:24 Dose: 2 units Documented by: L-Arginine/L-Glutamine/Calcium HMB (Juan (Unflavored) Packet) 1 packet PO BIDCM [facility] Last Admin: 01/29/21 16:24 Dose: 1 packet Documented by: Lactulose (Lactulose 20 Gm/30 Ml Udc) 20 gm PO TID [facility] Last Admin: 01/29/21 14:23 Dose: 20 gm Documented by: Metoprolol Tartrate (Metoprolol Tartrate 50 Mg Tablet) 50 mg PO BID [facility] Last Admin: 01/29/21 08:41 Dose: 50 mg Documented by: Nystatin (Nystatin Powder 15gm Bottle) 1 applic TOPICAL BID [facility]; Protocol Last Admin: 01/29/21 08:42 Dose: 1 applicatio Documented by: Ondansetron HCl (Ondansetron 4 Mg/2 Ml Vial) 4 mg IV Q8H PRN PRN PRN Reason: NAUSEA/VOMITING Oxycodone HCl (Oxycodone 5 Mg Tablet) 5 mg PO Q4H PRN PRN PRN Reason: Pain Score 4-10 Last Admin: 01/29/21 11:14 Dose: 5 mg Documented by: Paroxetine HCl (Paroxetine 20 Mg Tablet) 40 mg PO DAILY [facility] Last Admin: 01/29/21 08:42 Dose: 40 mg Documented by: Senna/Docusate Sodium (Senna/Docusate Sodium 1 Tablet) 2 tablet PO BID PRN PRN PRN Reason: Constipation Sodium Chloride (0.9% Saline Lock 10 Ml Syringe) 10 - 40 ml IV UD PRN PRN Reason: SALINE FLUSH Last Admin: 01/25/21 21:06 Dose: 10 ml Documented by: Sodium Hypochlorite (Dakin's Eleni Half Strength (=0.25%)) 1 applic TOPICAL DAILY [facility]; Protocol Last Admin: 01/29/21 14:24 Dose: 1 applicatio Documented by: Tamsulosin HCl (Tamsulosin Hcl 0.4 Mg Capsule) 0.4 mg PO DAILY@1730 [facility] Last Admin: 01/29/21 16:24 Dose: 0.4 mg Documented by: Zolpidem Tartrate (Zolpidem Tartrate 5 Mg Tablet) 5 mg PO QHS PRN PRN PRN Reason: INSOMNIA Last Admin: 01/28/21 22:06 Dose: 5 mg Documented by: Medical Necessity - Tobacco Use Smoking Status: Current every day smoker Tobacco Use: Cigarettes Assessment/Plan All Active Problems (Last Reviewed 01/29/21 @ 09:[address] Sandoval Morgan MD) Bacteremia (Acute) Cellulitis of left lower limb (Acute) Gangrene of toe of left foot (Acute) Hyperbilirubinemia (Acute) Liver cirrhosis (Acute) Acute kidney injury superimposed on CKD (Acute) Left leg cellulitis (Acute) Infected diabetic left leg ulcers (Acute) Left foot/ankle cellulitis with necrotic ulceration left 5th toe suspected OM Chronic bilateral lower extremity ulcerations down to subcutaneous and fascia/tendon layers; including continued deterioration to bilateral posterior leg ulcer sites and exposed Achilles compared to last wound center visit Diabetes with peripheral neuropathy Peripheral vascular disease - chronic Tobacco Dependence Other multiple comorbidities: Atrial fibrillation, acute on chronic kidney disease, jaundice, thrombocytopenia, congestive heart failure, delayed healing, malnutrition Patient seen and examined. Patient is restless, disoriented and lethargic. His feet are significantly more swollen today with blue/purple discoloration noted. Dakin wet-to-dry dressing was placed to all ulcers with overlying gauze, abdominal pads, Kerlix, and Joao wraps per nursing. To change daily. I recommend improvement offloading keep pressure off of these posterior leg sites by hanging his legs over pillows in bed if possible. Patient is noted to move his legs a lot during exam so this may not be feasible. Wound culture noted to be positive for staph aureus and proteus. Blood cultures are also growing staph. To continue antibiotics A consult was placed to Dr. Morgan from vascular surgery. Dr Morgan doesn't recommend any intervention at this time Left foot/ankle/leg x-rays ordered. These were reviewed without soft tissue emphysema, foreign body, adjacent osseous destruction to the fifth toe bone structures. Soft tissue deficit is apparent consistent with ulcer location to the posterior leg. Foot MRI reviewed showing possible OM to 5th digit. MRI only captures forefoot so is unable to evaluate any deeper infection to leg ulcerations particularly ones to posterior leg bilaterally and anterior [place] left. Discussed case with . Reviewed MRI results and vascular recommendations. I do not recommend surgical management of potential osteomyelitis at this time. The risk of patient not healing the surgical wound is high given other chronic nonhealing wounds. I recommend IV antibiotic management. understood and agreed to treatment plan. All of her questions were answered. Medical management DVT prophylaxis per primary team is noted and appreciated. Palliative care consulted noted Podiatry will continue to follow closely. Please do not hesitate to call if you have any questions. Macey Campbell DPM [facility] [phone]
[2021-01-29 16:41] LABS: Bedside Glucose 202 mg/dL (70-110)
--- NOTE | 2021-01-29 17:50 | NURSING ---
Pt is Afib and I was unable to confirm tip placement at the bedside. Xray ordered. Will need radiology report.
--- NOTE | 2021-01-29 17:55 | RAD_ITS ---
STUDY: X-RAY CHEST REASON FOR EXAM: Male, 65 years old. PICC LINE adjustment, image #2 TECHNIQUE: Single frontal view of the chest. COMPARISON: 01/29/2021 FINDINGS: Right PICC line terminates in the superior vena cava unchanged. Mild edema. There is no demonstrated pleural abnormality. Cardiomegaly. Normal mediastinum and clifford. Normal visualized pulmonary arteries. Normal visualized aortic arch and descending thoracic aorta. Normal visualized thoracic spine. Normal visualized ribs, clavicles, and shoulders. There is no demonstrated abnormality of the visualized soft tissue structures of the upper abdomen. RAD/CXR for Line Placement IMPRESSION: Mild CHF. PICC line superior vena cava. Electronically Signed: Thai Manjarrez MD at 19:55 EST , Service support ,
--- NOTE | 2021-01-29 18:35 | RAD_ITS ---
STUDY: X-RAY CHEST REASON FOR EXAM: Male, 65 years old. PICC line placement. TECHNIQUE: Single AP portable view of the chest. COMPARISON: 01/26/2021. FINDINGS: Telemetry wires overlie the chest. There is a left-sided PICC line which can be followed to the right mediastinal border. This is not visualized beyond this point The lungs are hypoexpanded. No acute infiltrate or mass. There is no demonstrated pleural abnormality. Stable cardiomegaly. Normal mediastinum and clifford. Normal visualized pulmonary arteries. There is atherosclerotic calcification of the aortic arch with tortuosity. The thoracic spine is obscured by the mediastinum. There is degenerative osteoarthritis of the bilateral shoulders. There is no demonstrated abnormality of the visualized soft tissue structures of the upper abdomen. RAD/CXR for Line Placement IMPRESSION: 1. Right PICC line. The tip of the PICC line cannot be followed beyond the right mediastinal margin. 2. Stable cardiomegaly without other change from 01/26/2021. Electronically Signed: Trent Romero DO at 18:11 EST Tel [phone], Service support ,
--- NOTE | 2021-01-29 19:10 | RAD_ITS ---
STUDY: X-RAY CHEST REASON FOR EXAM: Male, 65 years old. PICC line placement. TECHNIQUE: Single AP portable view of the chest. COMPARISON: 01/29/2021 ([id number]). FINDINGS: Densities a right PICC line. The tip cannot be followed beyond the right mediastinal margin suggesting represents its farthest extent. The remainder of the findings are essentially unchanged. RAD/CXR for Line Placement IMPRESSION: The right PICC line can only be followed to the right mediastinal margin. The findings are essentially unchanged from the examination of one hour earlier. Electronically Signed: Trent Romero DO at 19:26 EST Tel [phone], Service support ,
[2021-01-29] MEDS: Zolpidem Tartrate 5 MG Tablet PO (21:23)
[2021-01-29] MEDS: 0.9% Saline Lock 10 ML Syringe IV (21:36)
[2021-01-29 21:51] LABS: Bedside Glucose 157 mg/dL (70-110)
[2021-01-30] VITALS (11 sets, daily range): BP systolic 101–136; BP diastolic 74–94; PULSE 55–120; RESP 18–24; TEMP 36.2–36.4; O2SAT 91–93
[2021-01-30] MEDS: LORazepam 2 MG/ML Syringe 1 MG IV ×2 (02:44→18:38)
[2021-01-30] MEDS: 0.9% Saline Lock 10 ML Syringe IV ×2 (02:44→09:44)
--- NOTE | 2021-01-30 02:53 | NURSING ---
Pt restless and anxious at this time; unable to obtain blood pressure.
[2021-01-30 06:39] LABS: Hematocrit 47.5 % (40-54); Hemoglobin 13.5 g/dL (13.0-16.5); Mean Corp Hgb Conc 28.4 g/dL (32-36); Mean Corpuscular Hgb 30.3 pg (27.0-32.0); Mean Corpuscular Volume 106.7 fL (80-94); Mean Platelet Vol. 12.8 fl (6.2-12.0); POSITIVE MORPHOLOGY YES; Platelet Count 119 K/mm3 (150-450); RBC Distribution Width CV 19.1 % (11.6-14.6); RBC Distribution Width SD 74.8 fl (35.1-43.9); Red Blood Count 4.45 M/mm3 (4.6-6.2); White Blood Count 9.8 K/mm3 (4.4-11.0)
[2021-01-30 06:42] LABS: Scan Indicated on CBC? Y/N YES- FLAGS NOTED
[2021-01-30 06:47] LABS: International Normalized Ratio 1.8; Prothrombin Time (Protime)PT. 20.1 SECONDS (11.7-14.9)
[2021-01-30 07:00] LABS: Anion Gap 8 (5-15); BUN 79 mg/dL (7-18); BUN/Creat Ratio 31.2 RATIO (10-20); Calcium,Total 9.2 mg/dL (8.5-10.1); Chloride 104 mmol/L (98-107); Creatinine, Serum 2.53 mg/dL (0.70-1.30); EST Glomerular Filtration Rate 27 mL/min (>60); Est Glom Filt Rate - Afr Amer 33 mL/min (>60); Estimated Creatinine Clearance 33.39 ml/min; Glucose 84 mg/dL (74-106); Potassium 4.5 mmol/L (3.5-5.1); Sodium Level 145 mmol/L (136-145)
--- NOTE | 2021-01-30 07:39 | PCM.PN.HOSP ---
Patient Problems: Active and Suspected Problems (Last Reviewed 01/29/21 @ 09:[address] Sandoval Morgan MD) Bacteremia (Acute) Cellulitis of left lower limb (Acute) Gangrene of toe of left foot (Acute) Hyperbilirubinemia (Acute) Liver cirrhosis (Acute) Acute kidney injury superimposed on CKD (Acute) Left leg cellulitis (Acute) Infected diabetic left leg ulcers (Acute) Reason for Visit: Diabetic foot wounds/ulcers Subjective: Patient seen more lethargic than usual. Arousable with sternal rub; Patient was seen by podiatry on 01/29/2021. Recommendation is for conservative management only at this point. Objective: GENERAL: Lethargic but arousable HEENT: Atraumatic; EYES; Anicteric, Normal Conjunctiva NECK; supple, normal thyroid, RESPIRATORY: Diminished to auscultation CARDIOVASCULAR: Regular S1 S2, GI: soft, normoactive bowel sounds, : No Renal angle tenderness; EXTREMITIES: Left fifth toe necrosis, and plantar surface of the right foot as well as heel MUSCULOSKELETAL: no muscle waisting NEURO: Awake; no lateralizing signs. SKIN: As described above PSYCH; Flat affect Vitals/I&O's: Vital Signs Temp Pulse Resp BP Pulse Ox 97.1 F L 83 24 H 131/94 H 91 01/30/21 02:53 01/30/21 02:53 01/30/21 02:53 01/29/21 21:08 01/30/21 02:53 Oxygen Flow Rate (L/min) 3 Oxygen Delivery Method Nasal Cannula Weight: 120.882 kg Body Mass Index (BMI) 34.2 Finger Stick Blood Glucose 155 Intake and Output for Last 24 Hours 01/28/21 01/29/21 01/30/21 23:59 23:59 23:59 Intake Total 609.5 / 609.5 1160.50 / 1160.50 Output Total 0 / 0 Balance 609.5 / 609.5 1160.50 / 1160.50 Microbiology Past 72 Hours 01/27/21 10:00 Blood Culture (Wb) - Left Forearm Blood Culture - Preliminary No growth in 48 hours. 01/25/21 16:00 Wound - Left Foot Gram Stain - Final 01/25/21 16:00 Wound - Left Foot Wound Culture - Final Staphylococcus aureus Proteus hauseri 01/25/21 16:00 Wound - Left Foot Anaerobic Culture - Preliminary Checking for anaerobes, further studies to follow. 01/25/21 13:02 Blood Culture (Wb) - Right Forearm Blood Culture - Preliminary Staphylococcus aureus 01/25/21 12:40 Blood Culture (Wb) - Left Forearm Blood Culture - Preliminary No growth in 48 hours. Laboratory Results 01/28/21 03:00: Hepatitis A IgM Ab Negative, Hep Bs Antigen Negative, Hep B Core IgM Ab Negative, Hepatitis C Ab (EIA) <0.1 01/29/21 11:27: POC Glucose 211 H 01/29/21 16:23: POC Glucose 202 H 01/29/21 21:40: POC Glucose 157 H 01/30/21 06:30: WBC 9.8, RBC 4.45 L, Hgb 13.5, Hct 47.5, MCV 106.7 H, MCH 30.3, MCHC 28.4 L, RDW Std Deviation 74.8 H, RDW Coeff of Iban 19.1 H, Plt Count 119 L, MPV 12.8 H 01/30/21 06:30: Sodium 145, Potassium 4.5, Chloride 104, Carbon Dioxide 33.0 H, Anion Gap 8, BUN 79 H, Creatinine 2.53 H, Estim Creat Clear Calc 33.39, Est GFR (MDRD) Af Amer 33 L, Est GFR (MDRD) Non-Af 27 L, BUN/Creatinine Ratio 31.2 H, Glucose 84, Calcium 9.2 01/30/21 06:30: PT 20.1 H, INR 1.8 Current Medications Albuterol Sulfate (Albuterol 2.5 Mg/3 Ml Vial.Neb.) 2.5 mg INHALATION Q4H PRN PRN PRN Reason: Shortness of breath, wheezing Albuterol/Ipratropium (Ipratropium/Albuterol Sulfate 3 Ml Ampul.Neb) 3 ml INHALATION Q6H.RT [facility] Last Admin: 01/29/21 13:29 Dose: 3 ml Documented by: Aspirin (Aspirin E.C. 81 Mg Tablet) [facility] Last Admin: 01/29/21 08:42 Dose: 81 mg Documented by: Bumetanide (Bumetanide 2 Mg Tablet) 1 mg PO DAILY [facility] [place] Last Admin: 01/29/21 08:40 Dose: 1 mg Documented by: Calamine/Phenol (Menthol/Lanolin/Calamine/Znox 113 Gm Tube) 1 applic TOPICAL BID [facility]; Protocol Last Admin: 01/29/21 21:19 Dose: 1 applicatio Documented by: Famotidine (Famotidine 20 Mg Tablet) 20 mg PO DAILY [facility] [place] Last Admin: 01/29/21 08:42 Dose: 20 mg Documented by: Ferrous Sulfate (Ferrous Sulfate 325 Mg Tablet) 325 mg PO BIDCM [facility] Last Admin: 01/29/21 16:24 Dose: 325 mg Documented by: Gabapentin (Gabapentin 100 Mg Capsule) 200 mg PO DAILY [facility] [place] Last Admin: 01/29/21 08:40 Dose: 200 mg Documented by: Sodium Chloride () 250 mls @ 15 mls/hr IV .[id number] PRN PRN Reason: Saline Flush Last Infusion: 01/29/21 22:20 Dose: 0 mls/hr Documented by: Sodium Chloride () 250 mls @ 15 mls/hr IV .[id number] PRN PRN Reason: Additional IVPB Infusion Cefepime HCl 2 gm/ Sodium (Chloride) 100 mls @ 200 mls/hr IV Q12 [facility] [place] Last Infusion: 01/29/21 22:06 Dose: Infused Documented by: Insulin Glargine (Insulin Glargine 100 Units/Ml Pen) 10 units SC DAILY [facility] [place] Insulin Human Lispro (Insulin Lispro 100 Unit/Ml Insuln.Pen) 0 unit SC ACHS [facility] [place]; Protocol Last Admin: 01/29/21 21:40 Dose: 1 units Documented by: L-Arginine/L-Glutamine/Calcium HMB (Juan (Unflavored) Packet) 1 packet PO BIDCM [facility] [place] Last Admin: 01/29/21 16:24 Dose: 1 packet Documented by: Lactulose (Lactulose 20 Gm/30 Ml Udc) 20 gm PO TID [facility] [place] Last Admin: 01/30/21 06:02 Dose: Not Given Documented by: Metoprolol Tartrate (Metoprolol Tartrate 50 Mg Tablet) 50 mg PO BID [facility] [place] Last Admin: 01/29/21 21:20 Dose: 50 mg Documented by: Nystatin (Nystatin Powder 15gm Bottle) 1 applic TOPICAL BID [facility] [place]; Protocol Last Admin: 01/29/21 21:20 Dose: 1 applicatio Documented by: Ondansetron HCl (Ondansetron 4 Mg/2 Ml Vial) 4 mg IV Q8H PRN PRN PRN Reason: NAUSEA/VOMITING Oxycodone HCl (Oxycodone 5 Mg Tablet) 5 mg PO Q4H PRN PRN PRN Reason: Pain Score 4-10 Last Admin: 01/29/21 11:14 Dose: 5 mg Documented by: Paroxetine HCl (Paroxetine 20 Mg Tablet) 40 mg PO DAILY [facility] [place] Last Admin: 01/29/21 08:42 Dose: 40 mg Documented by: Senna/Docusate Sodium (Senna/Docusate Sodium 1 Tablet) 2 tablet PO BID PRN PRN PRN Reason: Constipation Sodium Chloride (0.9% Saline Lock 10 Ml Syringe) 10 - 40 ml IV UD PRN PRN Reason: SALINE FLUSH Last Admin: 01/30/21 02:44 Dose: 10 ml Documented by: Sodium Hypochlorite (Dakin's Eleni Half Strength (=0.25%)) 1 applic TOPICAL DAILY [facility] [place]; Protocol Last Admin: 01/29/21 14:24 Dose: 1 applicatio Documented by: Tamsulosin HCl (Tamsulosin Hcl 0.4 Mg Capsule) 0.4 mg PO DAILY@1730 [facility] [place] Last Admin: 01/29/21 16:24 Dose: 0.4 mg Documented by: Zolpidem Tartrate (Zolpidem Tartrate 5 Mg Tablet) 5 mg PO QHS PRN PRN PRN Reason: INSOMNIA Last Admin: 01/29/21 21:23 Dose: 5 mg Documented by: Medical Necessity - Tobacco Use Smoking Status: Current every day smoker Tobacco Use: Cigarettes Assessment/Plan All Active Problems (Last Reviewed 01/29/21 @ 09:[address] Sandoval Mogran MD) Bacteremia (Acute) Cellulitis of left lower limb (Acute) Gangrene of toe of left foot (Acute) Hyperbilirubinemia (Acute) Liver cirrhosis (Acute) Acute kidney injury superimposed on CKD (Acute) Left leg cellulitis (Acute) Infected diabetic left leg ulcers (Acute) Patient is a 65-year-old gentleman with multiple comorbidities admitted with left foot wound redness and warmth, and assessment of acute on chronic recurrent left lower extremity cellulitis and infected diabetic foot ulcers left toe necrosis made antibiotics initiated per protocol patient admitted to regular nursing floor for further management 1. Left diabetic foot infection ?Patient assessment on admission consistent with Acute on chronic recurrent left lower extremity cellulitis, Infected diabetic foot ulcers, Left toe necrosis. Patient was started on broad-spectrum antibiotic therapy with vancomycin and Zosyn with consultation placed to podiatry as well as infectious disease. Patient to undergo further evaluation of the left foot with MRI without contrast as well as serial studies with Dopplers -01/29/2021; Seen and evaluated by Dr. Morgan with vascular surgery no vascular intervention planned at this time -01/30/2021 patient was seen by podiatry on 01/29/2021. Recommendation is for conservative management only at this point. 2. Staph aureus bacteremia ?Patient is on vancomycin, seen by ID echo ordered D shaped septum in diastole. Moderately severe (3+) eccentric mitral valve insufficiency. Pulmonary artery systolic pressure is 55 mmHg. The estimated ejection fraction is 50 %. The left atrium is severely enlarged. The right atrium is severely enlarged. No evidence of vegetation 3. Chronic kidney disease stage III ?Due to diabetic nephropathy. Patient presented with worsening of kidney function with creatinine of 2.2 baseline creatinine 1.3. Consult placed to nephrology 4. Diabetes mellitus type II -patient's oral hypoglycemics held. Placed on long acting insulin, Accu-Cheks a.c. and at bedtime and covered with sliding scale insulin 5. Paroxysmal A. fib ?Rate controlled on systemic anticoagulation with Coumadin INR 3.2 as of 01/27/2021 -01/29/2021; INR 1.9 as of today ?01/30/2021; Coumadin resumed 6. Chronic bilateral lower extremity venous stasis -Also placed to wound care nurse 7. Chronic systolic congestive heart failure ?Checks x-ray obtained on admission was unremarkable. Patient is on Bumex and Aldactone at home held in view of worsening kidney function 8. Chronic hypoxic respiratory failure ?Secondary to COPD patient is on baseline oxygen 3 L at home did continue with aerosol treatments as needed 9. Peripheral vascular disease ?Consult placed to vascular surgery patient undergoing arterial Doppler studies 10. BPH ?Patient is on Flomax 11. Possible polycystic kidney disease ?Nephrology on consult 12. Chronic liver disease ?Do suspect nonalcoholic fatty liver disease. CT obtained demonstrated mild liver cirrhosis with mild splenomegaly and portal hypertension 13. Thrombocytopenia ?Secondary to chronic liver disease 14. DVT prophylaxis ?Patient on Coumadin 15. Physical deconditioning - Requested for PT OT eval and social work program coordinator to assist with discharge planning patient will benefit from palliative/hospice care evaluation Inpatient E&M: [id number] Subs Hosp L2
[2021-01-30] MEDS: Ipratropium/Albuterol Sulfate 3 ML AMPUL.NEB INHALATION (07:56)
[2021-01-30 08:31] LABS: Bedside Glucose 102 mg/dL (70-110)
[2021-01-30] MEDS: Nystatin Powder 15gm Bottle 1 APPLIC TOPICAL ×2 (09:44→20:48)
[2021-01-30] MEDS: Menthol/Lanolin/Calamine/Znox 113 GM Tube 1 APPLIC TOPICAL ×2 (09:45→20:48)
--- NOTE | 2021-01-30 10:23 | CASEMGMT ---
YUN WING received call from Leticia. states that she would like patient to go to a SNF at discharge. YUN WING reviewed SNF list over the phone with . 's first choice is [facility] and second choice is [facility]. YUN WING updated YUMIKO Daniel regarding request for SNF at discharge.
--- NOTE | 2021-01-30 10:57 | CASEMGMT ---
Addendum entered by Stephanie Daniel 01/30/21 12:20: SW received message from Carmen at [facility] stating pt has all SNF days available, pt can go to any SNF that is in contract with pt's insurance and [facility] is still waiving prior authorization for SNF admissions. Addendum entered by Stephanie Daniel 01/30/21 11:30: SW faxed referral to [facility] and placed a call to [facility] and left message regarding referral. Original Note: Social Work Note SW received referral for SNF placement. Pt's first choice is [facility] and second choice is [facility]. SW placed a call to Danielle with TCU, no beds available. SW placed a call to Crystal at [facility] and left message updating her on referral. SW faxed referral to [facility]. 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
--- NOTE | 2021-01-30 11:16 | NURSING ---
Addendum entered by Carmen Saleh 01/30/21 13:36: Based on previous radiology report, I trimmed new PICC to 6 cm greater than original one. However, upon placement found that it was too long. This new PICC had to be retracted and secured at 4 cm exterior / 51 cm interior. Original Note: PICC placed on 01/29 could not be verified via radiology. Will need to replace line as the original PICC cannot be corrected or repositioned.
[2021-01-30 12:35] LABS: Bedside Glucose 99 mg/dL (70-110)
[2021-01-30] MEDS: Bumetanide 2 MG Tablet 1 MG PO (12:36)
[2021-01-30] MEDS: Metoprolol Tartrate 50 MG Tablet PO (12:36)
[2021-01-30] MEDS: Aspirin E.C. 81 MG Tablet PO (12:36)
[2021-01-30] MEDS: Lactulose 20 GM/30 ML UDC PO ×2 (12:39→20:59)
--- NOTE | 2021-01-30 13:00 | RAD_ITS ---
STUDY: X-RAY CHEST REASON FOR EXAM: Male, 65 years old. PICC line placement TECHNIQUE: Single AP portable view of the chest. COMPARISON: None. FINDINGS: PICC line seen on the right side its tip is at the cavoatrial junction is in good position. The lungs are clear and expanded. There is no demonstrated pleural abnormality. There is moderate cardiac enlargement. Normal mediastinum and clifford. Normal visualized pulmonary arteries. Normal visualized aortic arch and descending thoracic aorta. Normal visualized thoracic spine. There is degenerative osteoarthritis of the bilateral shoulders. There is no demonstrated abnormality of the visualized soft tissue structures of the upper abdomen. RAD/CXR for Line Placement IMPRESSION: Moderate cardiomegaly. PICC line in good position. Electronically Signed: Satnam Kendall MD at 14:43 EST Tel , Service support ,
--- NOTE | 2021-01-30 13:08 | RAD_ITS ---
STUDY: X-RAY CHEST REASON FOR EXAM: Male, 65 years old. PICC line placement TECHNIQUE: Single AP portable view of the chest. COMPARISON: None. FINDINGS: PICC line seen on the right side its tip is at the cavoatrial junction is in good position. The lungs are clear and expanded. There is no demonstrated pleural abnormality. There is moderate cardiac enlargement. Normal mediastinum and clifford. Normal visualized pulmonary arteries. Normal visualized aortic arch and descending thoracic aorta. Normal visualized thoracic spine. There is degenerative osteoarthritis of the bilateral shoulders. There is no demonstrated abnormality of the visualized soft tissue structures of the upper abdomen. RAD/CXR for Line Placement IMPRESSION: Moderate cardiomegaly. PICC line in good position. Electronically Signed: Satnam Kendall MD at 14:43 EST Tel , Service support ,
--- NOTE | 2021-01-30 13:09 | RAD_ITS ---
STUDY: X-RAY CHEST REASON FOR EXAM: Male, 65 years old. PICC line placement TECHNIQUE: Single AP portable view of the chest. COMPARISON: None. FINDINGS: PICC line seen on the right side its tip is at the cavoatrial junction is in good position. The lungs are clear and expanded. There is no demonstrated pleural abnormality. There is moderate cardiac enlargement. Normal mediastinum and clifford. Normal visualized pulmonary arteries. Normal visualized aortic arch and descending thoracic aorta. Normal visualized thoracic spine. There is degenerative osteoarthritis of the bilateral shoulders. There is no demonstrated abnormality of the visualized soft tissue structures of the upper abdomen. RAD/CXR for Line Placement IMPRESSION: Moderate cardiomegaly. PICC line in good position. Electronically Signed: Satnam Kendall MD at 13:35 EST Tel , Service support ,
--- NOTE | 2021-01-30 14:46 | PCM.PN.REN ---
Patient Problems: Active and Suspected Problems (Last Reviewed 01/29/21 @ 09:[address] Sandoval Morgan MD) Bacteremia (Acute) Cellulitis of left lower limb (Acute) Gangrene of toe of left foot (Acute) Hyperbilirubinemia (Acute) Liver cirrhosis (Acute) Acute kidney injury superimposed on CKD (Acute) Left leg cellulitis (Acute) Infected diabetic left leg ulcers (Acute) Subjective: more awake today but still confused, restless. Creatinine worse today, incontinent of urine x3 in pad today per nursing. - Physical Exam Vitals/I&O's: Vital Signs Temp Pulse Resp BP Pulse Ox 97.5 F L 105 H 24 H 118/88 H 93 01/30/21 14:39 01/30/21 14:39 01/30/21 14:39 01/30/21 14:39 01/30/21 09:02 Oxygen Flow Rate (L/min) 4 Oxygen Delivery Method Nasal Cannula Weight: 120.882 kg Body Mass Index (BMI) 34.2 Finger Stick Blood Glucose 155 Intake and Output for Last 24 Hours 01/28/21 01/29/21 01/30/21 23:59 23:59 23:59 Intake Total 609.5 / 609.5 1160.50 / 1160.50 109.25 / 109.25 Output Total 0 / 0 Balance 609.5 / 609.5 1160.50 / 1160.50 109.25 / 109.25 General: Confused, - - awake Oral: Dry Mucosa Lungs: Clear to auscultation Cardiovascular: Irregular Rate Abdomen: Bowel Sounds Present, Soft, Non Tender, Obese Extremities: Edema - trace Skin: Ulcer/ Wound, - - breakdown, foot ulcers Musculoskeletal: Muscle Wasting Microbiology Past 72 Hours 01/25/21 13:02 Blood Culture (Wb) - Right Forearm Blood Culture - Final Staphylococcus aureus 01/25/21 12:40 Blood Culture (Wb) - Left Forearm Blood Culture - Final No growth in 5 days. 01/25/21 16:00 Wound - Left Foot Gram Stain - Final 01/25/21 16:00 Wound - Left Foot Wound Culture - Final Staphylococcus aureus Proteus hauseri 01/25/21 16:00 Wound - Left Foot Anaerobic Culture - Final Anaerobic cocci 01/28/21 10:30 Blood Culture (Wb) - Left Forearm Blood Culture - Preliminary No growth in 48 hours. 01/27/21 10:00 Blood Culture (Wb) - Left Forearm Blood Culture - Preliminary No growth in 48 hours. Laboratory Results 01/29/21 16:23: POC Glucose 202 H 01/29/21 21:40: POC Glucose 157 H 01/30/21 06:30: WBC 9.8, RBC 4.45 L, Hgb 13.5, Hct 47.5, MCV 106.7 H, MCH 30.3, MCHC 28.4 L, RDW Std Deviation 74.8 H, RDW Coeff of Iban 19.1 H, Plt Count 119 L, MPV 12.8 H 01/30/21 06:30: Sodium 145, Potassium 4.5, Chloride 104, Carbon Dioxide 33.0 H, Anion Gap 8, BUN 79 H, Creatinine 2.53 H, Estim Creat Clear Calc 33.39, Est GFR (MDRD) Af Amer 33 L, Est GFR (MDRD) Non-Af 27 L, BUN/Creatinine Ratio 31.2 H, Glucose 84, Calcium 9.2 01/30/21 06:30: PT 20.1 H, INR 1.8 01/30/21 08:24: POC Glucose 102 01/30/21 11:40: POC Glucose 99 Current Medications Albuterol Sulfate (Albuterol 2.5 Mg/3 Ml Vial.Neb.) 2.5 mg INHALATION Q4H PRN PRN PRN Reason: Shortness of breath, wheezing Albuterol/Ipratropium (Ipratropium/Albuterol Sulfate 3 Ml Ampul.Neb) 3 ml INHALATION Q6H.RT [facility] Last Admin: 01/30/21 07:56 Dose: 3 ml Documented by: Aspirin ([facility]spirin E.C. 81 Mg Tablet) [facility] Last Admin: 01/30/21 12:36 Dose: 81 mg Documented by: Bumetanide (Bumetanide 2 Mg Tablet) 1 mg PO DAILY [facility] Last Admin: 01/30/21 12:36 Dose: 1 mg Documented by: Calamine/Phenol (Menthol/Lanolin/Calamine/Znox 113 Gm Tube) 1 applic TOPICAL BID [facility]; Protocol Last Admin: 01/30/21 09:45 Dose: 1 applicatio Documented by: Famotidine (Famotidine 20 Mg Tablet) 20 mg PO DAILY [facility] Last Admin: 01/30/21 09:29 Dose: Not Given Documented by: Ferrous Sulfate (Ferrous Sulfate 325 Mg Tablet) 325 mg PO BIDCM [facility] Last Admin: 01/30/21 09:28 Dose: Not Given Documented by: Gabapentin (Gabapentin 100 Mg Capsule) 200 mg PO DAILY [facility] Last Admin: 01/30/21 09:29 Dose: Not Given Documented by: Sodium Chloride () 250 mls @ 15 mls/hr IV .[id number] PRN PRN Reason: Saline Flush Last Infusion: 01/30/21 10:51 Dose: 0 mls/hr Documented by: Sodium Chloride () 250 mls @ 15 mls/hr IV .[id number] PRN PRN Reason: Additional IVPB Infusion Cefepime HCl 2 gm/ Sodium (Chloride) 100 mls @ 200 mls/hr IV Q12 [facility] Last Infusion: 01/30/21 10:14 Dose: Infused Documented by: Insulin Glargine (Insulin Glargine 100 Units/Ml Pen) 10 units SC DAILY [facility] Last Admin: 01/30/21 09:49 Dose: Not Given Documented by: Insulin Human Lispro (Insulin Lispro 100 Unit/Ml Insuln.Pen) 0 unit SC ACHS [facility]; Protocol Last Admin: 01/30/21 11:45 Dose: Not Given Documented by: L-Arginine/L-Glutamine/Calcium HMB (Juan (Unflavored) Packet) [facility] Last Admin: 01/30/21 09:28 Dose: Not Given Documented by: Lactulose (Lactulose 20 Gm/30 Ml Udc) 20 gm PO TID [facility] Last Admin: 01/30/21 12:39 Dose: 20 gm Documented by: Metoprolol Tartrate (Metoprolol Tartrate 50 Mg Tablet) 50 mg PO BID [facility] Last Admin: 01/30/21 12:36 Dose: 50 mg Documented by: Nystatin (Nystatin Powder 15gm Bottle) 1 applic TOPICAL BID [facility]; Protocol Last Admin: 01/30/21 09:44 Dose: 1 applicatio Documented by: Ondansetron HCl (Ondansetron 4 Mg/2 Ml Vial) 4 mg IV Q8H PRN PRN PRN Reason: NAUSEA/VOMITING Oxycodone HCl (Oxycodone 5 Mg Tablet) 5 mg PO Q4H PRN PRN PRN Reason: Pain Score 4-10 Last Admin: 01/29/21 11:14 Dose: 5 mg Documented by: Paroxetine HCl (Paroxetine 20 Mg Tablet) 40 mg PO DAILY [facility] Last Admin: 01/30/21 09:29 Dose: Not Given Documented by: Senna/Docusate Sodium (Senna/Docusate Sodium 1 Tablet) 2 tablet PO BID PRN PRN PRN Reason: Constipation Sodium Chloride (0.9% Saline Lock 10 Ml Syringe) 10 - 40 ml IV UD PRN PRN Reason: SALINE FLUSH Last Admin: 01/30/21 09:44 Dose: 20 ml Documented by: Sodium Hypochlorite (Dakin's Eleni Half Strength (=0.25%)) 1 applic TOPICAL DAILY [facility]; Protocol Last Admin: 01/29/21 14:24 Dose: 1 applicatio Documented by: Tamsulosin HCl (Tamsulosin Hcl 0.4 Mg Capsule) 0.4 mg PO DAILY@1730 [facility] Last Admin: 01/29/21 16:24 Dose: 0.4 mg Documented by: Warfarin Sodium (Warfarin 5 Mg Tablet) 5 mg PO DAILY@1700 [facility] Zolpidem Tartrate (Zolpidem Tartrate 5 Mg Tablet) 5 mg PO QHS PRN PRN PRN Reason: INSOMNIA Last Admin: 01/29/21 21:23 Dose: 5 mg Documented by: Medical Necessity - Tobacco Use Smoking Status: Current every day smoker Tobacco Use: Cigarettes Assessment/Plan All Active Problems (Last Reviewed 01/29/21 @ 09:[address] Sandoval Morgan MD) Bacteremia (Acute) Cellulitis of left lower limb (Acute) Gangrene of toe of left foot (Acute) Hyperbilirubinemia (Acute) Liver cirrhosis (Acute) Acute kidney injury superimposed on CKD (Acute) Left leg cellulitis (Acute) Infected diabetic left leg ulcers (Acute) 1. CKD stage 3 underlying diabetic, polycystic kidney disease. Creatinine increased to 2.6, urine incontinence in pad. Stop bumex. Start gentle hydration. Spoke with pt spouse at bedside re dialysis option if creatinine continues to worsen. Pt Poor dialysis candidate due to comorbid conditions, poor quality of life, chronic debilitation, chronic diabetic foot infection with small vessel disease. 2. diabetic foot infection, PAD, small vessel disease with cyanotic digits, nose, skin ulcers, toe ulcers s/p toe amputation. Iv antibx managed by ID 3. DM type 2 primary mgmt 4. moderate pulmonary hypertension, RV dysfunction. edema BLE stable. Stop bumex. Pt appears dry 5. HTN stable 6 .Chronic afib on anticoagulation 7. encephalopathy on lactulose
[2021-01-30] MEDS: DAKIN'S SOL HALF STRENGTH (=0.25%) 1 APPLIC TOPICAL (14:50)
[2021-01-30] MEDS: 0.9% Normal Saline 1,000 ML 60 ML IV (15:09)
--- NOTE | 2021-01-30 17:13 | PCM.PROGNOTE ---
Patient Problems: Active and Suspected Problems (Last Reviewed 01/29/21 @ 09:[address] Sandoval Morgan MD) Bacteremia (Acute) Cellulitis of left lower limb (Acute) Gangrene of toe of left foot (Acute) Hyperbilirubinemia (Acute) Liver cirrhosis (Acute) Acute kidney injury superimposed on CKD (Acute) Left leg cellulitis (Acute) Infected diabetic left leg ulcers (Acute) Subjective: Patient was seen bedside with agitation and some disorientation noted. Patient's Leticia was bedside. And relates that this has been going on all day. When prompted patient does admit to some pain to his left little toe. - Physical Exam Vitals/I&O's: Vital Signs Temp Pulse Resp BP Pulse Ox 97.5 F L 105 H 24 H 118/88 H 93 01/30/21 14:39 01/30/21 14:39 01/30/21 14:45 01/30/21 14:39 01/30/21 09:02 Oxygen Flow Rate (L/min) 4 Oxygen Delivery Method Nasal Cannula Weight: 120.882 kg Body Mass Index (BMI) 34.2 Finger Stick Blood Glucose 155 Intake and Output for Last 24 Hours 01/28/21 01/29/21 01/30/21 23:59 23:59 23:59 Intake Total 609.5 / 609.5 1160.50 / 1160.50 109.25 / 109.25 Output Total 0 / 0 Balance 609.5 / 609.5 1160.50 / 1160.50 109.25 / 109.25 General: Confused HEENT: Atraumatic Abdomen: Obese Extremities: No clubbing, No Calf Tenderness, Cyanosis - Some purple discoloration is noted to all digits with more cyanosis and prenecrotic discoloration noted to the left fifth digit. Capillary refill time is greater than 3 seconds to the digits, Diminished Peripheral Pulses, Edema Skin: Ulcer/ Wound - mulitiple bilateral lower extremity ulceration noted to foot and leg. These were covered by bandage which is clean dry and intact. Some of the toe ulcerations were visible. There is noted less swelling to the digits compared to yesterday. The 5th left toe is draining serosanginous fluid Musculoskeletal: Muscle Wasting, Tenderness - No complaints from patient upon palpation range of motion of the fifth digit left Neurological: - - Decreased epicritic sensation Psych/Mental Status: Normal Affect, Appropriate Microbiology Past 72 Hours 01/25/21 13:02 Blood Culture (Wb) - Right Forearm Blood Culture - Final Staphylococcus aureus 01/25/21 12:40 Blood Culture (Wb) - Left Forearm Blood Culture - Final No growth in 5 days. 01/25/21 16:00 Wound - Left Foot Gram Stain - Final 01/25/21 16:00 Wound - Left Foot Wound Culture - Final Staphylococcus aureus Proteus hauseri 01/25/21 16:00 Wound - Left Foot Anaerobic Culture - Final Anaerobic cocci 01/28/21 10:30 Blood Culture (Wb) - Left Forearm Blood Culture - Preliminary No growth in 48 hours. 01/27/21 10:00 Blood Culture (Wb) - Left Forearm Blood Culture - Preliminary No growth in 48 hours. Laboratory Results 01/29/21 21:40: POC Glucose 157 H 01/30/21 06:30: WBC 9.8, RBC 4.45 L, Hgb 13.5, Hct 47.5, MCV 106.7 H, MCH 30.3, MCHC 28.4 L, RDW Std Deviation 74.8 H, RDW Coeff of Iban 19.1 H, Plt Count 119 L, MPV 12.8 H 01/30/21 06:30: Sodium 145, Potassium 4.5, Chloride 104, Carbon Dioxide 33.0 H, Anion Gap 8, BUN 79 H, Creatinine 2.53 H, Estim Creat Clear Calc 33.39, Est GFR (MDRD) Af Amer 33 L, Est GFR (MDRD) Non-Af 27 L, BUN/Creatinine Ratio 31.2 H, Glucose 84, Calcium 9.2 01/30/21 06:30: PT 20.1 H, INR 1.8 01/30/21 08:24: POC Glucose 102 01/30/21 11:40: POC Glucose 99 Current Medications Albuterol Sulfate (Albuterol 2.5 Mg/3 Ml Vial.Neb.) 2.5 mg INHALATION Q4H PRN PRN PRN Reason: Shortness of breath, wheezing Albuterol/Ipratropium (Ipratropium/Albuterol Sulfate 3 Ml Ampul.Neb) 3 ml INHALATION Q6H.RT TROY Last Admin: 01/30/21 07:56 Dose: 3 ml Documented by: Aspirin (Aspirin E.C. 81 Mg Tablet) [facility] Last Admin: 01/30/21 12:36 Dose: 81 mg Documented by: Calamine/Phenol (Menthol/Lanolin/Calamine/Znox 113 Gm Tube) 1 applic TOPICAL BID [facility]; Protocol Last Admin: 01/30/21 09:45 Dose: 1 applicatio Documented by: Famotidine (Famotidine 20 Mg Tablet) 20 mg PO DAILY [facility] Last Admin: 01/30/21 09:29 Dose: Not Given Documented by: Ferrous Sulfate (Ferrous Sulfate 325 Mg Tablet) [facility] Last Admin: 01/30/21 09:28 Dose: Not Given Documented by: Gabapentin (Gabapentin 100 Mg Capsule) 200 mg PO DAILY [facility] Last Admin: 01/30/21 09:29 Dose: Not Given Documented by: Sodium Chloride () 250 mls @ 15 mls/hr IV .[id number] PRN PRN Reason: Saline Flush Last Infusion: 01/30/21 16:13 Dose: Infused Documented by: Sodium Chloride () 250 mls @ 15 mls/hr IV .[id number] PRN PRN Reason: Additional IVPB Infusion Cefepime HCl 2 gm/ Sodium (Chloride) 100 mls @ 200 mls/hr IV Q12 [facility] Last Infusion: 01/30/21 10:14 Dose: Infused Documented by: Sodium Chloride () 1,000 mls @ 60 mls/hr IV .[id number] [facility] Last Admin: 01/30/21 15:09 Dose: 60 mls/hr Documented by: Insulin Glargine (Insulin Glargine 100 Units/Ml Pen) 10 units SC DAILY [facility] Last Admin: 01/30/21 09:49 Dose: Not Given Documented by: Insulin Human Lispro (Insulin Lispro 100 Unit/Ml Insuln.Pen) [address] [facility]; Protocol Last Admin: 01/30/21 11:45 Dose: Not Given Documented by: L-Arginine/L-Glutamine/Calcium HMB (Juan (Unflavored) Packet) [facility] Last Admin: 01/30/21 09:28 Dose: Not Given Documented by: Lactulose (Lactulose 20 Gm/30 Ml Udc) 20 gm PO TID [facility] Last Admin: 01/30/21 12:39 Dose: 20 gm Documented by: Metoprolol Tartrate (Metoprolol Tartrate 50 Mg Tablet) 50 mg PO BID [facility] Last Admin: 01/30/21 12:36 Dose: 50 mg Documented by: Nystatin (Nystatin Powder 15gm Bottle) 1 applic TOPICAL BID [facility]; Protocol Last Admin: 01/30/21 09:44 Dose: 1 applicatio Documented by: Ondansetron HCl (Ondansetron 4 Mg/2 Ml Vial) 4 mg IV Q8H PRN PRN PRN Reason: NAUSEA/VOMITING Oxycodone HCl (Oxycodone 5 Mg Tablet) 5 mg PO Q4H PRN PRN PRN Reason: Pain Score 4-10 Last Admin: 01/29/21 11:14 Dose: 5 mg Documented by: Paroxetine HCl (Paroxetine 20 Mg Tablet) 40 mg PO DAILY [facility] Last Admin: 01/30/21 09:29 Dose: Not Given Documented by: Senna/Docusate Sodium (Senna/Docusate Sodium 1 Tablet) 2 tablet PO BID PRN PRN PRN Reason: Constipation Sodium Chloride (0.9% Saline Lock 10 Ml Syringe) 10 - 40 ml IV UD PRN PRN Reason: SALINE FLUSH Last Admin: 01/30/21 09:44 Dose: 20 ml Documented by: Sodium Hypochlorite (Dakin's Eleni Half Strength (=0.25%)) 1 applic TOPICAL DAILY [facility]; Protocol Last Admin: 01/30/21 14:50 Dose: 1 applicatio Documented by: Tamsulosin HCl (Tamsulosin Hcl 0.4 Mg Capsule) 0.4 mg PO DAILY@1730 [facility] Last Admin: 01/29/21 16:24 Dose: 0.4 mg Documented by: Warfarin Sodium (Warfarin 5 Mg Tablet) 5 mg PO DAILY@1700 [facility] Zolpidem Tartrate (Zolpidem Tartrate 5 Mg Tablet) 5 mg PO QHS PRN PRN PRN Reason: INSOMNIA Last Admin: 01/29/21 21:23 Dose: 5 mg Documented by: Medical Necessity - Tobacco Use Smoking Status: Current every day smoker Tobacco Use: Cigarettes Assessment/Plan All Active Problems (Last Reviewed 01/29/21 @ 09:[address] Sandoval Morgan MD) Bacteremia (Acute) Cellulitis of left lower limb (Acute) Gangrene of toe of left foot (Acute) Hyperbilirubinemia (Acute) Liver cirrhosis (Acute) Acute kidney injury superimposed on CKD (Acute) Left leg cellulitis (Acute) Infected diabetic left leg ulcers (Acute) Left foot/ankle cellulitis with necrotic ulceration left 5th toe suspected OM Chronic bilateral lower extremity ulcerations down to subcutaneous and fascia/tendon layers; including continued deterioration to bilateral posterior leg ulcer sites and exposed Achilles compared to last wound center visit Diabetes with peripheral neuropathy Peripheral vascular disease - chronic Tobacco Dependence Other multiple comorbidities: Atrial fibrillation, acute on chronic kidney disease, jaundice, thrombocytopenia, congestive heart failure, delayed healing, malnutrition Patient seen and examined with Leticia present. Patient is restless, disoriented and lethargic. White blood cell count noted to be 9.8 today Patient was examined today with the dressings clean dry and intact. The toe ulcerations were able to be examined through the dressing. There is noted that the toes are less swollen compared to yesterday with some return to the left cyanotic discoloration. The left fifth digit is largely unchanged. Dakin wet-to-dry dressing was placed to all ulcers with overlying gauze, abdominal pads, Kerlix, and Joao wraps per nursing. To change daily. I recommend improvement offloading keep pressure off of these posterior leg sites by hanging his legs over pillows in bed if possible. Patient is noted to move his legs a lot during exam so this may not be feasible. Wound culture noted to be positive for staph aureus and proteus. Blood cultures are also growing staph. To continue antibiotics per ID Dr. Morgan from vascular surgery was consulted. Dr Morgan doesn't recommend any intervention at this time Left foot/ankle/leg x-rays ordered. These were reviewed without soft tissue emphysema, foreign body, adjacent osseous destruction to the fifth toe bone structures. Soft tissue deficit is apparent consistent with ulcer location to the posterior leg. Foot MRI reviewed showing possible OM to 5th digit. MRI only captures forefoot so is unable to evaluate any deeper infection to leg ulcerations particularly ones to posterior leg bilaterally and anterior [place] left. I do not recommend surgical management of potential osteomyelitis at this time. The risk of patient not healing the surgical wound is high given other chronic nonhealing wounds. I recommend IV antibiotic management. I recommend continuing palliative wound care at this time. understood and agreed to treatment plan. All of her questions were answered. Medical management DVT prophylaxis per primary team is noted and appreciated. Podiatry will continue to follow closely. Please do not hesitate to call if you have any questions. Macey Campbell DPM [facility] [phone]
[2021-01-30] MEDS: Insulin Lispro 100 UNIT/ML INSULN.PEN SC (17:23)
[2021-01-30] MEDS: Ferrous Sulfate 325 MG Tablet PO (17:30)
[2021-01-30] MEDS: Tamsulosin HCl 0.4 MG Capsule PO (17:30)
[2021-01-30] MEDS: Juven (unflavored) Packet 1 PACKET PO (17:31)
[2021-01-30 17:35] LABS: Bedside Glucose 193 mg/dL (70-110)
[2021-01-30] MEDS: Zolpidem Tartrate 5 MG Tablet PO (20:58)
[2021-01-31 00:05] LABS: Bedside Glucose 109 mg/dL (70-110)
[2021-01-31] MEDS: oxyCODONE 5 MG Tablet PO ×2 (00:07→11:09)
[2021-01-31 02:00] VITALS: BP 141/91; PULSE 68; RESP 22; TEMP 36.7; O2SAT 93
[2021-01-31 04:00] VITALS: BP 139/92; PULSE 87; RESP 18; TEMP 37.1; O2SAT 92
[2021-01-31] MEDS: Insulin Lispro 100 UNIT/ML INSULN.PEN SC (06:16)
[2021-01-31] MEDS: 0.9% Normal Saline 1,000 ML 60 ML IV (06:23)
[2021-01-31 06:39] LABS: Hemoglobin 13.1 g/dL (13.0-16.5); Mean Corp Hgb Conc 28.5 g/dL (32-36); Mean Corpuscular Hgb 30.8 pg (27.0-32.0); Mean Platelet Vol. 12.8 fl (6.2-12.0); POSITIVE MORPHOLOGY YES; Platelet Count 121 K/mm3 (150-450); RBC Distribution Width CV 19.6 % (11.6-14.6); RBC Distribution Width SD 75.7 fl (35.1-43.9); Red Blood Count 4.26 M/mm3 (4.6-6.2); White Blood Count 11.7 K/mm3 (4.4-11.0)
[2021-01-31 06:46] LABS: Bedside Glucose 163 mg/dL (70-110)
[2021-01-31 06:48] LABS: Scan Indicated on CBC? Y/N YES- FLAGS NOTED
[2021-01-31 06:50] LABS: International Normalized Ratio 2.3; Prothrombin Time (Protime)PT. 24.5 SECONDS (11.7-14.9)
[2021-01-31 07:06] LABS: Anion Gap 10 (5-15); BUN 97 mg/dL (7-18); Calcium,Total 9.1 mg/dL (8.5-10.1); Chloride 103 mmol/L (98-107); Creatinine, Serum 3.03 mg/dL (0.70-1.30); EST Glomerular Filtration Rate 22 mL/min (>60); Est Glom Filt Rate - Afr Amer 27 mL/min (>60); Estimated Creatinine Clearance 27.88 ml/min; Glucose 167 mg/dL (74-106); Sodium Level 144 mmol/L (136-145)
[2021-01-31 07:30] VITALS: O2SAT 94
--- NOTE | 2021-01-31 07:35 | PCM.PROGNOTE ---
Patient Problems: Active and Suspected Problems (Last Reviewed 01/29/21 @ 09:[address] Sandoval Morgan MD) Bacteremia (Acute) Cellulitis of left lower limb (Acute) Gangrene of toe of left foot (Acute) Hyperbilirubinemia (Acute) Liver cirrhosis (Acute) Acute kidney injury superimposed on CKD (Acute) Left leg cellulitis (Acute) Infected diabetic left leg ulcers (Acute) Subjective: Patient is agitated and restless in bed. Patient now has a sitter who relates he has been like this all night. - Physical Exam Vitals/I&O's: Vital Signs Temp Pulse Resp BP Pulse Ox 98.7 F 87 18 139/92 H 94 01/31/21 04:00 01/31/21 04:00 01/31/21 04:00 01/31/21 04:00 01/31/21 07:30 Oxygen Flow Rate (L/min) 4 Oxygen Delivery Method Nasal Cannula Weight: 120.882 kg Body Mass Index (BMI) 34.2 Finger Stick Blood Glucose 155 Intake and Output for Last 24 Hours 01/29/21 01/30/21 01/31/21 23:59 23:59 23:59 Intake Total 1160.50 / 1160.50 409.25 / 409.25 1014 / 1014 Output Total 0 / 0 Balance 1160.50 / 1160.50 409.25 / 409.25 1014 / 1014 General: Confused, Disoriented HEENT: Atraumatic Abdomen: Obese Extremities: No Calf Tenderness, Cool, Cyanosis, Diminished Peripheral Pulses, Edema Skin: Ulcer/ Wound - mulitiple bilateral lower extremity ulceration noted to foot and leg. Right side was covered by bandage which is clean dry and intact. Some of the toe ulcerations were visible. There is no significant change from yesterday., - - Left lower extremity ulcerations are largely unchanged from previous examinations. Posterior ankle wound probes to tendon. The left fifth digit is cyanotic with evidence of prenecrotic changes with ulcerations noted and serosanginous drainage. Other wounds to lower extremity are stable and unchanged Musculoskeletal: No Tenderness to Palpation of Joints or Extremities - Patient did not flinch upon examination with range of motion and palpation of ulceration sites but is unable to verbalize if there is any pain. Neurological: - - Previous examinations upon which when patient was coherent demonstrated neuropathy Psych/Mental Status: Agitated Microbiology Past 72 Hours 01/25/21 13:02 Blood Culture (Wb) - Right Forearm Blood Culture - Final Staphylococcus aureus 01/25/21 12:40 Blood Culture (Wb) - Left Forearm Blood Culture - Final No growth in 5 days. 01/25/21 16:00 Wound - Left Foot Gram Stain - Final 01/25/21 16:00 Wound - Left Foot Wound Culture - Final Staphylococcus aureus Proteus hauseri 01/25/21 16:00 Wound - Left Foot Anaerobic Culture - Final Anaerobic cocci 01/28/21 10:30 Blood Culture (Wb) - Left Forearm Blood Culture - Preliminary No growth in 48 hours. 01/27/21 10:00 Blood Culture (Wb) - Left Forearm Blood Culture - Preliminary No growth in 48 hours. Laboratory Results 01/30/21 08:24: POC Glucose 102 01/30/21 11:40: POC Glucose 99 01/30/21 17:21: POC Glucose 193 H 01/30/21 23:21: POC Glucose 109 01/31/21 06:11: POC Glucose 163 H 01/31/21 06:25: WBC 11.7 H, RBC 4.26 L, Hgb 13.1, Hct 46.0, MCV 108.0 H, MCH 30.8, MCHC 28.5 L, RDW Std Deviation 75.7 H, RDW Coeff of Iban 19.6 H, Plt Count 121 L, MPV 12.8 H 01/31/21 06:25: Sodium 144, Potassium 5.0, Chloride 103, Carbon Dioxide 31.0, Anion Gap 10, BUN 97 H, Creatinine 3.03 H, Estim Creat Clear Calc 27.88, Est GFR (MDRD) Af Amer 27 L, Est GFR (MDRD) Non-Af 22 L, BUN/Creatinine Ratio 32.0 H, Glucose 167 H, Calcium 9.1 01/31/21 06:25: PT 24.5 H, INR 2.3 Current Medications Albuterol Sulfate (Albuterol 2.5 Mg/3 Ml Vial.Neb.) 2.5 mg INHALATION Q4H PRN PRN PRN Reason: Shortness of breath, wheezing Albuterol/Ipratropium (Ipratropium/Albuterol Sulfate 3 Ml Ampul.Neb) 3 ml INHALATION Q6H.RT TROY Last Admin: 01/30/21 07:56 Dose: 3 ml Documented by: Aspirin (Aspirin E.C. 81 Mg Tablet) [facility] Last Admin: 01/30/21 12:36 Dose: 81 mg Documented by: Calamine/Phenol (Menthol/Lanolin/Calamine/Znox 113 Gm Tube) 1 applic TOPICAL BID [facility]; Protocol Last Admin: 01/30/21 20:48 Dose: 1 applicatio Documented by: Famotidine (Famotidine 20 Mg Tablet) 20 mg PO DAILY [facility] Last Admin: 01/30/21 09:29 Dose: Not Given Documented by: Ferrous Sulfate (Ferrous Sulfate 325 Mg Tablet) [facility] Last Admin: 01/30/21 17:30 Dose: 325 mg Documented by: Gabapentin (Gabapentin 100 Mg Capsule) 200 mg PO DAILY [facility] Last Admin: 01/30/21 09:29 Dose: Not Given Documented by: Sodium Chloride () 250 mls @ 15 mls/hr IV .[id number] PRN PRN Reason: Saline Flush Last Infusion: 01/30/21 16:13 Dose: Infused Documented by: Sodium Chloride () 250 mls @ 15 mls/hr IV .[id number] PRN PRN Reason: Additional IVPB Infusion Cefepime HCl 2 gm/ Sodium (Chloride) 100 mls @ 200 mls/hr IV Q12 [facility] Last Infusion: 01/30/21 22:32 Dose: Infused Documented by: Sodium Chloride () 1,000 mls @ 60 mls/hr IV .[id number] [facility] Last Admin: 01/31/21 06:23 Dose: 60 mls/hr Documented by: Insulin Glargine (Insulin Glargine 100 Units/Ml Pen) 10 units SC DAILY [facility] Last Admin: 01/30/21 09:49 Dose: Not Given Documented by: Insulin Human Lispro (Insulin Lispro 100 Unit/Ml Insuln.Pen) 0 unit SC ACHS [facility]; Protocol Last Admin: 01/31/21 06:16 Dose: 1 units Documented by: L-Arginine/L-Glutamine/Calcium HMB (Juan (Unflavored) Packet) [facility] Last Admin: 01/30/21 17:31 Dose: 1 packet Documented by: Lactulose (Lactulose 20 Gm/30 Ml Udc) 20 gm PO TID [facility] Last Admin: 01/31/21 06:20 Dose: Not Given Documented by: Metoprolol Tartrate (Metoprolol Tartrate 50 Mg Tablet) 50 mg PO BID [facility] Last Admin: 01/30/21 20:49 Dose: Not Given Documented by: Nystatin (Nystatin Powder 15gm Bottle) 1 applic TOPICAL BID [facility]; Protocol Last Admin: 01/30/21 20:48 Dose: 1 applicatio Documented by: Ondansetron HCl (Ondansetron 4 Mg/2 Ml Vial) 4 mg IV Q8H PRN PRN PRN Reason: NAUSEA/VOMITING Oxycodone HCl (Oxycodone 5 Mg Tablet) 5 mg PO Q4H PRN PRN PRN Reason: Pain Score 4-10 Last Admin: 01/31/21 00:07 Dose: 5 mg Documented by: Paroxetine HCl (Paroxetine 20 Mg Tablet) 40 mg PO DAILY [facility] Last Admin: 01/30/21 09:29 Dose: Not Given Documented by: Rifaximin (Rifaximin 550 Mg Tablet) 550 mg PO BID [facility] Senna/Docusate Sodium (Senna/Docusate Sodium 1 Tablet) 2 tablet PO BID PRN PRN PRN Reason: Constipation Sodium Chloride (0.9% Saline Lock 10 Ml Syringe) 10 - 40 ml IV UD PRN PRN Reason: SALINE FLUSH Last Admin: 01/30/21 09:44 Dose: 20 ml Documented by: Sodium Hypochlorite (Dakin's Eleni Half Strength (=0.25%)) 1 applic TOPICAL DAILY [facility]; Protocol Last Admin: 01/30/21 14:50 Dose: 1 applicatio Documented by: Tamsulosin HCl (Tamsulosin Hcl 0.4 Mg Capsule) 0.4 mg PO DAILY@1730 [facility] Last Admin: 01/30/21 17:30 Dose: 0.4 mg Documented by: Warfarin Sodium (Warfarin 5 Mg Tablet) 5 mg PO DAILY@1700 [facility] Last Admin: 01/30/21 17:26 Dose: 5 mg Documented by: Zolpidem Tartrate (Zolpidem Tartrate 5 Mg Tablet) 5 mg PO QHS PRN PRN PRN Reason: INSOMNIA Last Admin: 01/30/21 20:58 Dose: 5 mg Documented by: Medical Necessity - Tobacco Use Smoking Status: Current every day smoker Tobacco Use: Cigarettes Assessment/Plan All Active Problems (Last Reviewed 01/29/21 @ 09:[address] Sandoval Morgan MD) Bacteremia (Acute) Cellulitis of left lower limb (Acute) Gangrene of toe of left foot (Acute) Hyperbilirubinemia (Acute) Liver cirrhosis (Acute) Acute kidney injury superimposed on CKD (Acute) Left leg cellulitis (Acute) Infected diabetic left leg ulcers (Acute) Left foot/ankle cellulitis with necrotic ulceration left 5th toe suspected OM Chronic bilateral lower extremity ulcerations down to subcutaneous and fascia/tendon layers; including continued deterioration to bilateral posterior leg ulcer sites and exposed Achilles compared to last wound center visit Diabetes with peripheral neuropathy Peripheral vascular disease - chronic Tobacco Dependence Other multiple comorbidities: Atrial fibrillation, acute on chronic kidney disease, jaundice, thrombocytopenia, congestive heart failure, delayed healing, malnutrition Patient seen and examined with sitters present. Patient is restless and disoriented. White blood cell count noted to be 11.7 today Patient was examined today with the right dressings clean dry and intact. The right toe ulcerations were able to be examined through the dressing. There is noted that the toes are about the same as far as swelling and discoloration to the toes are noted compared to yesterday. The left lower extremity dressing was changed. The foot was examined and is noted that there is no significant change to the left foot and leg ulcerations. The left fifth digit is largely unchanged with some serosanguineous drainage noted.. Dakin wet-to-dry dressing was placed to all ulcers with overlying gauze, abdominal pads, Kerlix, and Joao wraps. To change daily. I recommend improvement offloading keep pressure off of these posterior leg sites by hanging his legs over pillows in bed if possible. Patient is noted to move his legs a lot during exam so this may not be feasible. Wound culture noted to be positive for staph aureus and proteus. Blood cultures are also growing staph. To continue antibiotics per ID Dr. Morgan from vascular surgery was consulted. Dr Morgan doesn't recommend any intervention at this time Left foot/ankle/leg x-rays ordered. These were reviewed without soft tissue emphysema, foreign body, adjacent osseous destruction to the fifth toe bone structures. Soft tissue deficit is apparent consistent with ulcer location to the posterior leg. Foot MRI reviewed showing possible OM to 5th digit. MRI only captures forefoot so is unable to evaluate any deeper infection to leg ulcerations particularly ones to posterior leg bilaterally and anterior [place] left. I do not recommend surgical management of potential osteomyelitis at this time. The risk of patient not healing the surgical wound is high given other chronic nonhealing wounds along with his other chronic conditions. I recommend IV antibiotic management. I recommend continuing palliative wound care at this time. Medical management DVT prophylaxis per primary team is noted and appreciated. Podiatry will continue to follow closely. Please do not hesitate to call if you have any questions. Macey Campbell DPM [facility] [place] [phone]
[2021-01-31] MEDS: Menthol/Lanolin/Calamine/Znox 113 GM Tube 1 APPLIC TOPICAL (08:30)
--- NOTE | 2021-01-31 08:36 | PN_ITS ---
Patient Problems: Active and Suspected Problems (Last Reviewed 01/29/21 @ 09:[address] Sandoval Morgan MD) Bacteremia (Acute) Cellulitis of left lower limb (Acute) Gangrene of toe of left foot (Acute) Hyperbilirubinemia (Acute) Liver cirrhosis (Acute) Acute kidney injury superimposed on CKD (Acute) Left leg cellulitis (Acute) Infected diabetic left leg ulcers (Acute) Reason for Visit: Acute encephalopathy Subjective: Patient seen clinical condition deteriorated rapidly. Patient barely responsive with labored breathing. Did discuss patient's clinical condition with the including changing CODE STATUS from DNR CCA to DNR CC. Also did discuss initiation of hospice/palliative care symptom management with consultation placed to the hospice care team. Patient's did agree Objective: GENERAL: Barely responsive HEENT: Atraumatic; EYES; Anicteric, Normal Conjunctiva NECK; supple, normal thyroid, RESPIRATORY: Labored breathing CARDIOVASCULAR: Regular S1 S2, GI: soft, normoactive bowel sounds, : No Renal angle tenderness; EXTREMITIES: Left fifth toe necrosis, and plantar surface of the right foot as well as heel MUSCULOSKELETAL: no muscle waisting SKIN: As described above PSYCH; Barely responsive Vitals/I&O's: Vital Signs Temp Pulse Resp BP Pulse Ox 98.7 F 87 18 139/92 H 94 01/31/21 04:00 01/31/21 04:00 01/31/21 04:00 01/31/21 04:00 01/31/21 07:30 Oxygen Flow Rate (L/min) 4 Oxygen Delivery Method Nasal Cannula Weight: 120.882 kg Body Mass Index (BMI) 34.2 Finger Stick Blood Glucose 155 Intake and Output for Last 24 Hours 01/29/21 01/30/21 01/31/21 23:59 23:59 23:59 Intake Total 1160.50 / 1160.50 409.25 / 409.25 1014 / 1014 Output Total 0 / 0 Balance 1160.50 / 1160.50 409.25 / 409.25 1014 / 1014 Microbiology Past 72 Hours 01/29/21 03:18 Blood Culture (Wb) - Left Forearm Blood Culture - Preliminary No growth in 48 hours. 01/25/21 13:02 Blood Culture (Wb) - Right Forearm Blood Culture - Final Staphylococcus aureus 01/25/21 12:40 Blood Culture (Wb) - Left Forearm Blood Culture - Final No growth in 5 days. 01/25/21 16:00 Wound - Left Foot Gram Stain - Final 01/25/21 16:00 Wound - Left Foot Wound Culture - Final Staphylococcus aureus Proteus hauseri 01/25/21 16:00 Wound - Left Foot Anaerobic Culture - Final Anaerobic cocci 01/28/21 10:30 Blood Culture (Wb) - Left Forearm Blood Culture - Preliminary No growth in 48 hours. 01/27/21 10:00 Blood Culture (Wb) - Left Forearm Blood Culture - Preliminary No growth in 48 hours. Laboratory Results 01/30/21 11:40: POC Glucose 99 01/30/21 17:21: POC Glucose 193 H 01/30/21 23:21: POC Glucose 109 01/31/21 06:11: POC Glucose 163 H 01/31/21 06:25: WBC 11.7 H, RBC 4.26 L, Hgb 13.1, Hct 46.0, MCV 108.0 H, MCH 30.8, MCHC 28.5 L, RDW Std Deviation 75.7 H, RDW Coeff of Iban 19.6 H, Plt Count 121 L, MPV 12.8 H 01/31/21 06:25: Sodium 144, Potassium 5.0, Chloride 103, Carbon Dioxide 31.0, Anion Gap 10, BUN 97 H, Creatinine 3.03 H, Estim Creat Clear Calc 27.88, Est GFR (MDRD) Af Amer 27 L, Est GFR (MDRD) Non-Af 22 L, BUN/Creatinine Ratio 32.0 H, Glucose 167 H, Calcium 9.1 01/31/21 06:25: PT 24.5 H, INR 2.3 Current Medications Albuterol Sulfate (Albuterol 2.5 Mg/3 Ml Vial.Neb.) 2.5 mg INHALATION Q4H PRN PRN PRN Reason: Shortness of breath, wheezing Albuterol/Ipratropium (Ipratropium/Albuterol Sulfate 3 Ml Ampul.Neb) 3 ml INHALATION Q6H.RT [facility] Last Admin: 01/30/21 07:56 Dose: 3 ml Documented by: Aspirin (Aspirin E.C. 81 Mg Tablet) 81 mg PO DAILYCM [facility] Last Admin: 01/30/21 12:36 Dose: 81 mg Documented by: Calamine/Phenol (Menthol/Lanolin/Calamine/Znox 113 Gm Tube) 1 applic TOPICAL BID [facility]; Protocol Last Admin: 01/30/21 20:48 Dose: 1 applicatio Documented by: Famotidine (Famotidine 20 Mg Tablet) 20 mg PO DAILY [facility] Last Admin: 01/30/21 09:29 Dose: Not Given Documented by: Ferrous Sulfate (Ferrous Sulfate 325 Mg Tablet) 325 mg PO BIDCM [facility] Last Admin: 01/30/21 17:30 Dose: 325 mg Documented by: Gabapentin (Gabapentin 100 Mg Capsule) 200 mg PO DAILY [facility] Last Admin: 01/30/21 09:29 Dose: Not Given Documented by: Sodium Chloride () 250 mls @ 15 mls/hr IV .[id number] PRN PRN Reason: Saline Flush Last Infusion: 01/30/21 16:13 Dose: Infused Documented by: Sodium Chloride () 250 mls @ 15 mls/hr IV .[id number] PRN PRN Reason: Additional IVPB Infusion Cefepime HCl 2 gm/ Sodium (Chloride) 100 mls @ 200 mls/hr IV Q12 [facility] Last Infusion: 01/30/21 22:32 Dose: Infused Documented by: Sodium Chloride () 1,000 mls @ 60 mls/hr IV .[id number] [facility] Last Admin: 01/31/21 06:23 Dose: 60 mls/hr Documented by: Insulin Glargine (Insulin Glargine 100 Units/Ml Pen) 10 units SC DAILY [facility] Last Admin: 01/30/21 09:49 Dose: Not Given Documented by: Insulin Human Lispro (Insulin Lispro 100 Unit/Ml Insuln.Pen) [address] [facility]; Protocol Last Admin: 01/31/21 06:16 Dose: 1 units Documented by: L-Arginine/L-Glutamine/Calcium HMB (Juan (Unflavored) Packet) 1 packet PO BIDCM [facility] Last Admin: 01/30/21 17:31 Dose: 1 packet Documented by: Lactulose (Lactulose 20 Gm/30 Ml Udc) 20 gm PO TID [facility] Last Admin: 01/31/21 06:20 Dose: Not Given Documented by: Metoprolol Tartrate (Metoprolol Tartrate 50 Mg Tablet) 50 mg PO BID [facility] Last Admin: 01/30/21 20:49 Dose: Not Given Documented by: Nystatin (Nystatin Powder 15gm Bottle) 1 applic TOPICAL BID [facility]; Protocol Last Admin: 01/30/21 20:48 Dose: 1 applicatio Documented by: Ondansetron HCl (Ondansetron 4 Mg/2 Ml Vial) 4 mg IV Q8H PRN PRN PRN Reason: NAUSEA/VOMITING Oxycodone HCl (Oxycodone 5 Mg Tablet) 5 mg PO Q4H PRN PRN PRN Reason: Pain Score 4-10 Last Admin: 01/31/21 00:07 Dose: 5 mg Documented by: Paroxetine HCl (Paroxetine 20 Mg Tablet) 40 mg PO DAILY [facility] Last Admin: 01/30/21 09:29 Dose: Not Given Documented by: Rifaximin (Rifaximin 550 Mg Tablet) 550 mg PO BID [facility] Senna/Docusate Sodium (Senna/Docusate Sodium 1 Tablet) 2 tablet PO BID PRN PRN PRN Reason: Constipation Sodium Chloride (0.9% Saline Lock 10 Ml Syringe) 10 - 40 ml IV UD PRN PRN Reason: SALINE FLUSH Last Admin: 01/30/21 09:44 Dose: 20 ml Documented by: Sodium Hypochlorite (Dakin's Eleni Half Strength (=0.25%)) 1 applic TOPICAL DAILY [facility]; Protocol Last Admin: 01/30/21 14:50 Dose: 1 applicatio Documented by: Tamsulosin HCl (Tamsulosin Hcl 0.4 Mg Capsule) 0.4 mg PO DAILY@1730 [facility] Last Admin: 01/30/21 17:30 Dose: 0.4 mg Documented by: Warfarin Sodium (Warfarin 5 Mg Tablet) 5 mg PO DAILY@1700 [facility] Last Admin: 01/30/21 17:26 Dose: 5 mg Documented by: Zolpidem Tartrate (Zolpidem Tartrate 5 Mg Tablet) 5 mg PO QHS PRN PRN PRN Reason: INSOMNIA Last Admin: 01/30/21 20:58 Dose: 5 mg Documented by: STROKE Vital Signs/Narrative: Vital Signs Pulse Ox 01/31/21 07:30 94 Medical Necessity - Tobacco Use Smoking Status: Current every day smoker Tobacco Use: Cigarettes Assessment/Plan All Active Problems (Last Reviewed 01/29/21 @ 09:[address] Sandoval Morgan MD) Bacteremia (Acute) Cellulitis of left lower limb (Acute) Gangrene of toe of left foot (Acute) Hyperbilirubinemia (Acute) Liver cirrhosis (Acute) Acute kidney injury superimposed on CKD (Acute) Left leg cellulitis (Acute) Infected diabetic left leg ulcers (Acute) Patient is a 65-year-old gentleman with multiple comorbidities admitted with left foot wound redness and warmth, and assessment of acute on chronic recurrent left lower extremity cellulitis and infected diabetic foot ulcers left toe necrosis made antibiotics initiated per protocol patient admitted to regular nursing floor for further management 1. Left diabetic foot infection ?Patient assessment on admission consistent with Acute on chronic recurrent left lower extremity cellulitis, Infected diabetic foot ulcers, Left toe necrosis. Patient was started on broad-spectrum antibiotic therapy with vancomycin and Zosyn with consultation placed to podiatry as well as infectious disease. Patient to undergo further evaluation of the left foot with MRI without contrast as well as serial studies with Dopplers -01/29/2021; Seen and evaluated by Dr. Morgan with vascular surgery no vascular intervention planned at this time -01/30/2021 patient was seen by podiatry on 01/29/2021. Recommendation is for conservative management only at this point. 2. Staph aureus bacteremia ?Patient is on vancomycin, seen by ID echo ordered D shaped septum in diastole. Moderately severe (3+) eccentric mitral valve insufficiency. Pulmonary artery systolic pressure is 55 mmHg. The estimated ejection fraction is 50 %. The left atrium is severely enlarged. The right atrium is severely enlarged. No evidence of vegetation 3. Chronic kidney disease stage III ?Due to diabetic nephropathy. Patient presented with worsening of kidney function with creatinine of 2.2 baseline creatinine 1.3. Consult placed to nephrology 4. Diabetes mellitus type II -patient's oral hypoglycemics held. Placed on long acting insulin, Accu-Cheks a.c. and at bedtime and covered with sliding scale insulin 5. Paroxysmal A. fib ?Rate controlled on systemic anticoagulation with Coumadin INR 3.2 as of 01/27/2021 -01/29/2021; INR 1.9 as of today ?01/30/2021; Coumadin resumed 6. Chronic bilateral lower extremity venous stasis -Also placed to wound care nurse 7. Chronic systolic congestive heart failure ?Checks x-ray obtained on admission was unremarkable. Patient is on Bumex and Aldactone at home held in view of worsening kidney function 8. Chronic hypoxic respiratory failure ?Secondary to COPD patient is on baseline oxygen 3 L at home did continue with aerosol treatments as needed 9. Peripheral vascular disease ?Consult placed to vascular surgery patient undergoing arterial Doppler studies 10. BPH ?Patient is on Flomax 11. Possible polycystic kidney disease ?Nephrology on consult 12. Chronic liver disease ?Do suspect nonalcoholic fatty liver disease. CT obtained demonstrated mild liver cirrhosis with mild splenomegaly and portal hypertension 13. Thrombocytopenia ?Secondary to chronic liver disease 14. DVT prophylaxis ?Patient on Coumadin 15. Physical deconditioning - Requested for PT OT eval and manager social services to assist with discharge planning patient will benefit from palliative/hospice care evaluation Advance planning; Patient seen clinical condition deteriorated rapidly. Patient barely responsive with labored breathing. Did discuss patient's clinical condition with the including changing CODE STATUS from DNR CCA to DNR CC. Also did discuss initiation of hospice/palliative care symptom management with consultation placed to the hospice care team. Patient's did agree spent on discussion 25 Inpatient E&M: 21086 Subs Hosp L2 Procedures: 86215 Prolonged Physician INPT Multi Select Codes - Hospitalists' Procedures Procedures: 93067 Advncd Care Plan addl 30 Min
--- NOTE | 2021-01-31 08:37 | NURSING ---
called pt's and requested she come in as Dr. Hartley requested so plan of care could be discussed.
--- NOTE | 2021-01-31 09:13 | NURSING ---
voice mail message left for spouse Leticia at her cell phone number listed on demographics sheet. requested she phone back to [facility] d/t Dr. Hartley here and wanting to talk with her.
--- NOTE | 2021-01-31 09:17 | NURSING ---
Leticia just arrived and is at bedside. Dr. Hartley texted and informed she is here. He is now at bedside too.
[2021-01-31] MEDS: DAKIN'S SOL HALF STRENGTH (=0.25%) 1 APPLIC TOPICAL (09:33)
--- NOTE | 2021-01-31 09:53 | CASEMGMT ---
Addendum entered by Stephanie Daniel 01/31/21 19:11: YUMIKO placed a call to Crystal at [facility] and left message to disregard referral as pt went to Inpatient Hospice Unit today. Original Note: Social Work Note SW updated that Hospice consult is needed. Pt's Leticia is present at [facility]. SW in to speak with Leticia, SW introduced self and role at [facility]. Leticia confirms she is agreeable to Hospice consult. YUMIKO informed Leticia that this worker will call and send referral to [facility] who will be calling Leticia to discuss services. Leticia states understanding. YUMIKO provided support to Leticia. YUMIKO placed a call to [facility] and provided referral to RN Michael. YUMIKO faxed referral. SW did receive message from Crystal at [facility] stating they could accept administrative receptionist, however if pt goes Hospice, pt will not be going skilled. SW to update Crystal once Hospice decision has been made. Plan: Hospice consult Stephanie Daniel [employer], [employer] KNIFE [employer]UT[employer] MACHINE
[2021-01-31] MEDS: Haloperidol Lactate 10 MG/5 ML UDC SL/PO ×4 (10:08→14:19)
[2021-01-31] MEDS: LORazepam 0.5 MG Tablet SL/PO ×2 (10:08→13:30)
[2021-01-31] MEDS: Nystatin Powder 15gm Bottle 1 APPLIC TOPICAL (11:02)
--- NOTE | 2021-01-31 12:31 | DCINST_ITS ---
- Discharge Diagnoses Current Active Problems: Current Active and Chronic Problems (Last Reviewed 01/29/21 @ 09:[address] Sandoval Morgan MD) Bacteremia (Acute) Cellulitis of left lower limb (Acute) Gangrene of toe of left foot (Acute) Hyperbilirubinemia (Acute) Liver cirrhosis (Acute) Acute kidney injury superimposed on CKD (Acute) Left leg cellulitis (Acute) Infected diabetic left leg ulcers (Acute) Open wound of left hand (Chronic) History of alcohol abuse (Chronic) Smoking addiction (Chronic) PAD (peripheral artery disease) (Chronic) 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) 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) Chronic systolic (congestive) heart failure (Chronic) Chronic kidney disease (Chronic) Dilated cardiomyopathy (Chronic) Nonrheumatic mitral (valve) insufficiency (Chronic) Paroxysmal atrial fibrillation (Chronic) CVA (cerebral vascular accident) (Chronic) Hyperlipidemia (Chronic) Essential (primary) hypertension (Chronic) Secondary pulmonary arterial hypertension (Chronic) Skin ulcer of right knee with fat layer exposed (Chronic) Skin ulcer of left knee with fat layer exposed (Chronic) 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 Anticipate Stage III or IV if excision done. Right ischial pressure sore, stage 2 (Chronic) at least a Stage II. Anticipate Stage III or IV if excision done. Pressure ulcer of sacral region, stage 2 (Chronic) at least a Stage II. Anticipate Stage III or IV if excision done. Vasculitis (Chronic) PVD (peripheral vascular disease) (Chronic) Anemia (Chronic) Cardiomyopathy (Chronic) 47 % EF in 2012 CVA, old, hemiparesis (Chronic) left side weakness....stroke in 2013 BPH (benign prostatic hyperplasia) (Chronic) Urinary incontinence (Chronic) Ulcer of right lower extremity with fat layer exposed (Chronic) 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) Osteomyelitis (Chronic) Malnutrition (Chronic) DM2 (diabetes mellitus, type 2) (Chronic) Depression (Chronic) Chronic low back pain (Chronic) You will use the following diet at home:: No restrictions Allergies/Adverse Reactions: Allergies No Known Allergies Allergy (Verified 01/25/21 12:06) Medications to take at Discharge Aspirin [Adult Aspirin] 81 mg PO DAILY 06/07/18 Cholecalciferol (VIT D3) [Vitamin D3] 1,000 unit PO DAILY 06/07/18 Acetaminophen [Tylenol Tablet] 650 mg PO Q6H PRN PRN tablet 06/14/18 Tamsulosin HCl [Flomax] 0.4 mg PO DAILY@1730 capsule 06/14/18 Zinc Sulfate (50mg elemental) [Zinc Sulfate] 220 mg PO DAILY capsule 06/14/18 Famotidine 20 mg PO DAILY 08/05/18 Insulin Lispro [Humalog] See Protocol SQ 4X/DAY 08/05/18 Multivitamins,Ther W-Minerals [Multivitamin With Minerals ([facility])] 1 tablet PO DAILY 08/05/18 Paroxetine HCl [Paxil] 40 mg PO DAILY 08/05/18 Warfarin [Coumadin] 5 mg PO [id number] 08/05/18 glipiZIDE [Glucotrol] 10 mg PO BID 08/05/18 Atenolol [Tenormin (beta dilia)] 50 mg PO DAILY tablet 08/10/18 Ferrous Sulfate 325 mg PO BIDCM tablet 08/10/18 Spironolactone 25 mg PO DAILY 06/29/19 Warfarin [Coumadin ([facility])] 2.5 mg PO TH 06/29/19 Gabapentin [Neurontin] 200 mg PO DAILY 08/09/19 Ascorbic Acid [Vitamin C] 500 mg PO DAILY 10/27/19 Insulin Glargine,Hum.rec.anlog [Lantus] 18 unit SQ DAILY 01/17/20 Bumetanide [Bumex] 1 mg PO DAILY 01/25/21 Levomefolate/B6/B12/Algal Oil [Metanx Capsule] 1 ea PO BID 01/25/21 Gabapentin 300 mg PO DAILY 01/26/21 traZODone [Desyrel] 50 mg PO QHS 01/26/21 Cefepime HCl [Maxipime] 2 gm IV Q12H 39 Days #78 vial 01/29/21 The following prescriptions were given: Cefepime HCl [Maxipime] 2 gm IV Q12H 39 Days #78 vial Prescription Printed Primary Care Physician: Hong Sparks MD [Primary Care Provider] - Test Results: Test results from this visit will be discussed in further detail at your follow- up appointment, if applicable. Proposed Discharge Date: 01/31/21
--- NOTE | 2021-01-31 12:35 | PCM.DC.SUM ---
Discharge Date and Diagnosis - Problem List Patient Problems: Active and Suspected Problems (Last Reviewed 01/29/21 @ 09:[address] Sandoval Morgan MD) Bacteremia (Acute) Cellulitis of left lower limb (Acute) Gangrene of toe of left foot (Acute) Hyperbilirubinemia (Acute) Liver cirrhosis (Acute) Acute kidney injury superimposed on CKD (Acute) Left leg cellulitis (Acute) Infected diabetic left leg ulcers (Acute) Date of Admission: 01/29/21 Date of Discharge: 01/31/21 - Primary Discharge Diagnosis Acute Problems: Active Problems (Last Reviewed 01/29/21 @ 09:[address] Sandoval Morgan MD) Bacteremia (Acute) Cellulitis of left lower limb (Acute) Gangrene of toe of left foot (Acute) Hyperbilirubinemia (Acute) Liver cirrhosis (Acute) Acute kidney injury superimposed on CKD (Acute) Left leg cellulitis (Acute) Infected diabetic left leg ulcers (Acute) - Secondary Discharge Diagnosis Chronic Problems: Chronic Problems (Last Reviewed 01/29/21 @ 09:[address] Sandoval Morgan MD) Open wound of left hand (Chronic) History of alcohol abuse (Chronic) Smoking addiction (Chronic) PAD (peripheral artery disease) (Chronic) 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) 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) Chronic systolic (congestive) heart failure (Chronic) Chronic kidney disease (Chronic) Dilated cardiomyopathy (Chronic) Nonrheumatic mitral (valve) insufficiency (Chronic) Paroxysmal atrial fibrillation (Chronic) CVA (cerebral vascular accident) (Chronic) Hyperlipidemia (Chronic) Essential (primary) hypertension (Chronic) Secondary pulmonary arterial hypertension (Chronic) Skin ulcer of right knee with fat layer exposed (Chronic) Skin ulcer of left knee with fat layer exposed (Chronic) 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 Anticipate Stage III or IV if excision done. Right ischial pressure sore, stage 2 (Chronic) at least a Stage II. Anticipate Stage III or IV if excision done. Pressure ulcer of sacral region, stage 2 (Chronic) at least a Stage II. Anticipate Stage III or IV if excision done. Vasculitis (Chronic) PVD (peripheral vascular disease) (Chronic) Anemia (Chronic) Cardiomyopathy (Chronic) 47 % EF in 2013 CVA, old, hemiparesis (Chronic) left side weakness....stroke in 2013 BPH (benign prostatic hyperplasia) (Chronic) Urinary incontinence (Chronic) Ulcer of right lower extremity with fat layer exposed (Chronic) 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) Osteomyelitis (Chronic) Malnutrition (Chronic) DM2 (diabetes mellitus, type 2) (Chronic) Depression (Chronic) Chronic low back pain (Chronic) Hospital Course and Treatment Imaging Results: Clinical Impression(s) from Imaging Studies Foot X-Ray 01/25/21 14:40 IMPRESSION: No destructive bony process. Diffuse soft tissue swelling with ulcer/defect of the lower posterior leg. Electronically Signed: Elvis Veras MD ([place]) at 16:29 EST , Service support , Tibia/Fibula X-Ray 01/25/21 14:40 IMPRESSION: Diffuse soft tissue swelling with ulcer/defect of the lower posterior leg. No destructive bony process. Electronically Signed: Elvis Veras MD ([place]) at 16:30 EST , Service support , Ankle X-Ray 01/25/21 16:10 IMPRESSION: Diffuse soft tissue swelling with ulcer/defect of the lower posterior leg. No destructive bony process. Electronically Signed: Elvis Veras MD ([place]) at 16:30 EST , Service support , Chest X-Ray 01/26/21 07:18 IMPRESSION: No active disease. Electronically Signed: Cristo Hart MD at 8:31 EST Tel , Service support , Ankle X-Ray 01/26/21 09:34 IMPRESSION: Normal x-ray examination of the ankle. No radiographic evidence of osteomyelitis. Electronically Signed: Cristo Hart MD at 11:55 EST Tel , Service support , Tibia/Fibula X-Ray 01/26/21 09:35 IMPRESSION: Normal x-ray examination of the tibia and fibula. Electronically Signed: Cristo Hart MD at 11:54 EST Tel , Service support , Abdomen/Pelvis CT 01/26/21 10:45 IMPRESSION: 1. Suspect mild cirrhosis with mild splenomegaly likely secondary to portal hypertension. 2. Autosomal dominant polycystic kidney disease with mild volume overload with small bilateral pleural effusions and a small amount of ascites. 3. 3.2 cm abdominal aortic aneurysm. Electronically Signed: Cristo Hart MD at 12:31 EST Tel , Service support , Lower Extremity MRI 01/27/21 10:42 IMPRESSION: Limited study secondary to patient motion. 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 Arthrosis of the first metatarsophalangeal joint. Electronically Signed: London Long MD at 7:25 EST Tel , Service support , Liver Ultrasound 01/27/21 16:05 IMPRESSION: 1. Gallbladder sludge. 2. Extrahepatic biliary ductal dilatation worrisome for choledocholithiasis or stricture. Correlation with MRCP or ERCP would be useful. 3. Autosomal dominant polycystic kidney disease. Electronically Signed: Cristo Hart MD at 11:29 EST Tel , Service support , Chest X-Ray 01/29/21 17:55 IMPRESSION: Mild CHF. PICC line superior vena cava. Electronically Signed: Thai Manjarrez MD at 19:55 EST , Service support , Chest X-Ray 01/29/21 18:35 IMPRESSION: 1. Right PICC line. The tip of the PICC line cannot be followed beyond the right mediastinal margin. 2. Stable cardiomegaly without other change from 01/26/2021. Electronically Signed: Trent RomeroDO at 18:11 EST Tel [phone], Service support , Chest X-Ray 01/29/21 19:10 IMPRESSION: The right PICC line can only be followed to the right mediastinal margin. The findings are essentially unchanged from the examination of one hour earlier. Electronically Signed: Trent Dawson SpringsDO jayda at 19:26 EST Tel [phone], Service support , Chest X-Ray 01/30/21 13:00 IMPRESSION: Moderate cardiomegaly. PICC line in good position. Electronically Signed: Satnam Kendall MD at 14:43 EST Tel , Service support , Chest X-Ray 01/30/21 13:08 IMPRESSION: Moderate cardiomegaly. PICC line in good position. Electronically Signed: Satnam Kendall MD at 14:43 EST Tel , Service support , Chest X-Ray 01/30/21 13:09 IMPRESSION: Moderate cardiomegaly. PICC line in good position. Electronically Signed: Satnam Kendall MD at 13:35 EST Tel , Service support , Consultations 01/25/21 15:05 Consult: Onc/Wound/district service manager Routine Comment: Operations: None Summary of Care Provided: Patient is a 65-year-old gentleman with multiple comorbidities admitted with left foot wound redness and warmth, and assessment of acute on chronic recurrent left lower extremity cellulitis and infected diabetic foot ulcers left toe necrosis made antibiotics initiated per protocol patient admitted to regular nursing floor for further management patient had a complicated hospital stay. His condition continued to deteriorate despite optimal management. Did discuss patient's clinical condition with the including changing CODE STATUS from DNR CCA to DNR CC. Also did discuss initiation of hospice/palliative care symptom management with consultation placed to the hospice care team. Patient's did agree. Patient was transferred to hospice in the medical facility for continuation of his hospice/palliative care symptom management Patient Problems: Active and Suspected Problems (Last Reviewed 01/29/21 @ 09:[address] Sandoval Morgan MD) Bacteremia (Acute) Cellulitis of left lower limb (Acute) Gangrene of toe of left foot (Acute) Hyperbilirubinemia (Acute) Liver cirrhosis (Acute) Acute kidney injury superimposed on CKD (Acute) Left leg cellulitis (Acute) Infected diabetic left leg ulcers (Acute) - Physical Exam Vitals/I&O's: Vital Signs Temp Pulse Resp BP Pulse Ox 98.7 F 87 18 139/92 H 94 01/31/21 04:00 01/31/21 04:00 01/31/21 04:00 01/31/21 04:00 01/31/21 07:30 Oxygen Flow Rate (L/min) 4 Oxygen Delivery Method Nasal Cannula Weight: 120.882 kg Body Mass Index (BMI) 34.2 Finger Stick Blood Glucose 155 Intake and Output for Last 24 Hours 01/29/21 01/30/21 01/31/21 23:59 23:59 23:59 Intake Total 1160.50 / 1160.50 409.25 / 409.25 1014 / 1014 Output Total 0 / 0 Balance 1160.50 / 1160.50 409.25 / 409.25 1014 / 1014 General: Lethargic Psych/Mental Status: Restless Microbiology Past 72 Hours 01/29/21 03:18 Blood Culture (Wb) - Left Forearm Blood Culture - Preliminary No growth in 48 hours. 01/25/21 13:02 Blood Culture (Wb) - Right Forearm Blood Culture - Final Staphylococcus aureus 01/25/21 12:40 Blood Culture (Wb) - Left Forearm Blood Culture - Final No growth in 5 days. 01/25/21 16:00 Wound - Left Foot Gram Stain - Final 01/25/21 16:00 Wound - Left Foot Wound Culture - Final Staphylococcus aureus Proteus hauseri 01/25/21 16:00 Wound - Left Foot Anaerobic Culture - Final Anaerobic cocci 01/28/21 10:30 Blood Culture (Wb) - Left Forearm Blood Culture - Preliminary No growth in 48 hours. 01/27/21 10:00 Blood Culture (Wb) - Left Forearm Blood Culture - Preliminary No growth in 48 hours. Laboratory Results 01/30/21 11:40: POC Glucose 99 01/30/21 17:21: POC Glucose 193 H 01/30/21 23:21: POC Glucose 109 01/31/21 06:11: POC Glucose 163 H 01/31/21 06:25: WBC 11.7 H, RBC 4.26 L, Hgb 13.1, Hct 46.0, MCV 108.0 H, MCH 30.8, MCHC 28.5 L, RDW Std Deviation 75.7 H, RDW Coeff of Iban 19.6 H, Plt Count 121 L, MPV 12.8 H 01/31/21 06:25: Sodium 144, Potassium 5.0, Chloride 103, Carbon Dioxide 31.0, Anion Gap 10, BUN 97 H, Creatinine 3.03 H, Estim Creat Clear Calc 27.88, Est GFR (MDRD) Af Amer 27 L, Est GFR (MDRD) Non-Af 22 L, BUN/Creatinine Ratio 32.0 H, Glucose 167 H, Calcium 9.1 01/31/21 06:25: PT 24.5 H, INR 2.3 Current Medications Albuterol Sulfate (Albuterol 2.5 Mg/3 Ml Vial.Neb.) 2.5 mg INHALATION Q4H PRN PRN PRN Reason: Shortness of breath, wheezing Albuterol/Ipratropium (Ipratropium/Albuterol Sulfate 3 Ml Ampul.Neb) 3 ml INHALATION Q6H.RT TROY Last Admin: 01/30/21 07:56 Dose: 3 ml Documented by: Atropine Sulfate (Atropine Sulfate 1% 2 Ml Bottle) 4 drop PO Q3H PRN PRN PRN Reason: Congestion Calamine/Phenol (Menthol/Lanolin/Calamine/Znox 113 Gm Tube) 1 applic TOPICAL BID TROY; Protocol Last Admin: 01/31/21 08:30 Dose: 1 applicatio Documented by: Diphenhydramine HCl (Diphenhydramine 25 Mg Capsule) 25 mg PO Q4H PRN PRN PRN Reason: Extrapyridimal Spasm/Itching Famotidine (Famotidine 20 Mg Tablet) 20 mg PO DAILY [facility] Last Admin: 01/31/21 09:32 Dose: Not Given Documented by: Gabapentin (Gabapentin 100 Mg Capsule) 200 mg PO DAILY [facility] Last Admin: 01/31/21 09:32 Dose: Not Given Documented by: Haloperidol Lactate (Haloperidol Lactate 10 Mg/5 Ml Udc) 1 mg SL/PO Q1H PRN PRN PRN Reason: Hyperactivity/Anxiety Last Admin: 01/31/21 11:09 Dose: 1 mg Documented by: Sodium Chloride () 250 mls @ 15 mls/hr IV .[id number] PRN PRN Reason: Saline Flush Last Infusion: 01/30/21 16:13 Dose: Infused Documented by: Sodium Chloride () 250 mls @ 15 mls/hr IV .[id number] PRN PRN Reason: Additional IVPB Infusion Sodium Chloride () 1,000 mls @ 60 mls/hr IV .[id number] [facility] Last Admin: 01/31/21 06:23 Dose: 60 mls/hr Documented by: L-Arginine/L-Glutamine/Calcium HMB (Juan (Unflavored) Packet) 1 packet PO BIDCM [facility] Last Admin: 01/31/21 09:32 Dose: Not Given Documented by: Lactulose (Lactulose 20 Gm/30 Ml Udc) 20 gm PO TID [facility] Last Admin: 01/31/21 09:32 Dose: Not Given Documented by: Lorazepam (Lorazepam 0.5 Mg Tablet) 0.5 mg SL/PO Q3H PRN PRN PRN Reason: Restlessness/Anxiety Last Admin: 01/31/21 10:08 Dose: 0.5 mg Documented by: Nystatin (Nystatin Powder 15gm Bottle) 1 applic TOPICAL BID [facility]; Protocol Last Admin: 01/31/21 11:02 Dose: 1 applicatio Documented by: Ondansetron HCl (Ondansetron 4 Mg/2 Ml Vial) 4 mg IV Q8H PRN PRN PRN Reason: NAUSEA/VOMITING Oxycodone HCl (Oxycodone 5 Mg Tablet) 5 mg PO Q4H PRN PRN PRN Reason: Pain Score 4-10 Last Admin: 01/31/21 11:09 Dose: 5 mg Documented by: Promethazine HCl (Promethazine 25 Mg Tablet) 12.5 mg PO Q6H PRN PRN PRN Reason: UNSPECIFIED NAUSEA/VOMITING Senna/Docusate Sodium (Senna/Docusate Sodium 1 Tablet) 2 tablet PO BID PRN PRN PRN Reason: Constipation Sodium Chloride (0.9% Saline Lock 10 Ml Syringe) 10 - 40 ml IV UD PRN PRN Reason: SALINE FLUSH Last Admin: 01/30/21 09:44 Dose: 20 ml Documented by: Sodium Hypochlorite (Dakin's Eleni Half Strength (=0.25%)) 1 applic TOPICAL DAILY [facility]; Protocol Last Admin: 01/31/21 09:33 Dose: 1 applicatio Documented by: Home Medications: Medications to take at Discharge Aspirin [Adult Aspirin] 81 mg PO DAILY 06/07/18 Cholecalciferol (VIT D3) [Vitamin D3] 1,000 unit PO DAILY 06/07/18 Acetaminophen [Tylenol Tablet] 650 mg PO Q6H PRN PRN tablet 06/14/18 Tamsulosin HCl [Flomax] 0.4 mg PO DAILY@1730 capsule 06/14/18 Zinc Sulfate (50mg elemental) [Zinc Sulfate] 220 mg PO DAILY capsule 06/14/18 Famotidine 20 mg PO DAILY 08/05/18 Insulin Lispro [Humalog] See Protocol SQ 4X/DAY 08/05/18 Multivitamins,Ther W-Minerals [Multivitamin With Minerals ([facility])] 1 tablet PO DAILY 08/05/18 Paroxetine HCl [Paxil] 40 mg PO DAILY 08/05/18 Warfarin [Coumadin] 5 mg PO [id number] 08/05/18 glipiZIDE [Glucotrol] 10 mg PO BID 08/05/18 Atenolol [Tenormin (beta dilia)] 50 mg PO DAILY tablet 08/10/18 Ferrous Sulfate 325 mg PO BIDCM tablet 08/10/18 Spironolactone 25 mg PO DAILY 06/29/19 Warfarin [Coumadin ([facility])] 2.5 mg PO TH 06/29/19 Gabapentin [Neurontin] 200 mg PO DAILY 08/09/19 Ascorbic Acid [Vitamin C] 500 mg PO DAILY 10/27/19 Insulin Glargine,Hum.rec.anlog [Lantus] 18 unit SQ DAILY 01/17/20 Bumetanide [Bumex] 1 mg PO DAILY 01/25/21 Levomefolate/B6/B12/Algal Oil [Metanx Capsule] 1 ea PO BID 01/25/21 Gabapentin 300 mg PO DAILY 01/26/21 traZODone [Desyrel] 50 mg PO QHS 01/26/21 Cefepime HCl [Maxipime] 2 gm IV Q12H 39 Days #78 vial 01/29/21 Following Prescriptions Were Given to Patient: Cefepime HCl [Maxipime] 2 gm IV Q12H 39 Days #78 vial Prescription Printed Primary Care Physician: Hong Sparks MD [Primary Care Provider] - Disposition: Hospice Medical Facility Minutes spent on discharge:: 45 Patient Condition:: Critical Medical Necessity - Tobacco Use Smoking Status: Current every day smoker Tobacco Use: Cigarettes Meaningful Use Info Meaningful Use Diagnoses (Choose all that apply): None applicable Inpatient E&M: 33812 Disch Hosp
[2021-01-31] MEDS: 0.9% Saline Lock 10 ML Syringe IV (13:30)
[2021-01-31] MEDS: DiphenhydrAMINE 25 MG Capsule PO (13:30)
--- NOTE | 2021-01-31 14:46 | PCM.PN.BLA ---
Progress Note pt transferred to hospice, renal fxn continues to decline despite iv fluids. Will sign off. DW hospitalist
== END 2021-01-31 15:10 | disposition hospice, inpatient (51) | DRG 638 ==
LOC: ED 14:04 → MS3 14:43
PROVIDERS: Internal Medicine Infectious Disease; Admitting Provider Hospitalist; Emergency Provider Emergency Medicine; PCP Family Medicine; Visit Provider Internal Medicine
DX: E11.622 Type 2 diabetes mellitus with other skin ulcer (principal); L03.116 Cellulitis of left lower limb; E11.52 Type 2 diabetes mellitus with diabetic peripheral angiopathy with gangrene; I50.22 Chronic systolic (congestive) heart failure; I13.0 Hypertensive heart and chronic kidney disease with heart failure and stage 1 through stage 4 chronic kidney disease, or unspecified chronic kidney disease; J96.11 Chronic respiratory failure with hypoxia; L97.518 Non-pressure chronic ulcer of other part of right foot with other specified severity; L97.828 Non-pressure chronic ulcer of other part of left lower leg with other specified severity; Q61.2 Polycystic kidney, adult type; G93.40 Encephalopathy, unspecified; L97.522 Non-pressure chronic ulcer of other part of left foot with fat layer exposed; E11.22 Type 2 diabetes mellitus with diabetic chronic kidney disease; N17.9 Acute kidney failure, unspecified; K74.60 Unspecified cirrhosis of liver; F17.210 Nicotine dependence, cigarettes, uncomplicated; I48.0 Paroxysmal atrial fibrillation; J44.9 Chronic obstructive pulmonary disease, unspecified; Z99.81 Dependence on supplemental oxygen; Z79.01 Long term (current) use of anticoagulants; N40.0 Benign prostatic hyperplasia without lower urinary tract symptoms; D69.59 Other secondary thrombocytopenia; Z66 Do not resuscitate; B96.89 Other specified bacterial agents as the cause of diseases classified elsewhere; Z89.421 Acquired absence of other right toe(s); E11.42 Type 2 diabetes mellitus with diabetic polyneuropathy; B95.61 Methicillin susceptible Staphylococcus aureus infection as the cause of diseases classified elsewhere; I87.8 Other specified disorders of veins; I34.0 Nonrheumatic mitral (valve) insufficiency; N18.32 Chronic kidney disease, stage 3b; R53.81 Other malaise; I27.21 Secondary pulmonary arterial hypertension
CPT/HCPCS: 11042; 36415; 36569; 36600; 71045; 73590; 73610; 73620; 73718; 74176; 76705; 80048; 80053; 80074; 80202; 82140; 82248; 82803; 82962; 83036; 83605; 83690; 83735; 85025; 85027; 85610; 87040; 87070; 87075; 87077; 87186; 87205; 87640; 93306; 93925; 94640; 97110; 97162; 97167; 97530; 97535; 97802; 99251; 99284; 99406; J7030; J7040; J7050; A4216; C8929; G0463; J0295; J1940